=== PATIENT | male | born 1955 | race Caucasian/White ===

== ENCOUNTER 2020-03-15 11:11 | Outpatient (CLI) | payer MEDICARE, SELFPAY ==
--- NOTE | ~2020-03-15 | XR_ITS ---
EXAMINATION: XR abdomen/kub 1V DATE: 03/15/2020 11:39 INDICATION: Abdominal pain. Constipation. TECHNIQUE: A supine view of the abdomen on 2 radiographs was obtained. COMPARISON: CT abdomen 03/07/2007 FINDINGS: There are no dilated loops of bowel. There is a moderate volume of stool in the colon. Ther e are changes of posterior fusion procedure in lumbar spine. IMPRESSION: 1. Nonobstructive bowel gas pattern. Reviewed, dictated and finalized at location A.
[2020-03-15 11:24] LABS: Basophils Absolute Auto 0.03 K/mm3 (0.00-0.10); Basophils Percent Auto 0.4 % (0.0-1.0); Eosinophils Absolute Auto 0.08 K/mm3 (0.02-0.50); Eosinophils Percent Auto 1.1 % (1.0-6.0); Hematocrit 41.2 % (40.0-54.0); Hemoglobin 14.1 g/dL (14.0-18.0); Immature Granulocyte Absolute 0.03 K/mm3 (0.00-0.00); Immature Granulocyte Percent A 0.4 % (0.0-0.0); Lymphocytes Absolute Auto 2.21 K/mm3 (1.10-4.50); Lymphocytes Percent Auto 30.6 % (18.0-42.0); Mean Corpuscular HGB Conc 34.2 g/dL (32.0-36.0); Mean Corpuscular Volume 96.5 fL (78.0-102.0); Monocytes Absolute Auto 0.53 K/mm3 (0.10-0.90); Monocytes Percent Auto 7.3 % (2.0-11.0); Neutrophils Absolute Auto 4.4 K/mm3 (1.7-7.2); Neutrophils Percent Auto 60.2 % (50.0-70.0); Platelet Count Result 142 K/mm3 (150-420); Red Blood Count 4.27 M/mm3 (4.70-6.10); White Blood Count 7.2 K/mm3 (4.8-10.8)
[2020-03-15 11:33] LABS: Add Urine Microscopic? YES; Appearance Urine Clear (Clear); Bilirubin Urine Negative (Negative); Blood Urine 2+ (Negative); Color Urine Yellow (Yellow); Glucose Urine UA Negative (Negative); Ketones Urine Negative (Negative); Leukocyte Esterase Ur Negative LEU/UL (Negative); Nitrate Urine Negative (Negative); Protein Urine Negative (Negative); Urobilinogen Urine 0.2 mg/dL (0.2-1.0); pH Urine 5.5 (5.0-8.0)
[2020-03-15 11:58] LABS: Bacteria Urine Trace /hpf; Squamous Epithelial Cell Urine Rare /hpf (Few); WBC Urine None seen /hpf (0-3)
[2020-03-15 12:29] LABS: Alanine Aminotransferase 15 U/L (16-63); Albumin Level 3.7 g/dL (3.4-5.0); Alkaline Phosphatase 60 U/L (46-116); Amylase 31 U/L (25-115); Anion Gap 10.1 mmol/L (7-16); Aspartate Amino Transferase 17 U/L (15-37); Bilirubin,Total 0.3 mg/dL (0.00-1.00); Blood Urea Nitrogen 17 mg/dL (7-18); Calcium 8.8 mg/dL (8.5-10.1); Carbon Dioxide 31 mmol/L (21-32); Chloride 101 mmol/L (98-108); Estimated Glomerular Filt Rate > 60; Glucose 99 mg/dL (70-99); Lipase 49 U/L (73-393); Osmolality Calculated 287 mOsm/kg (285-295); Potassium 4.1 mmol/L (3.5-5.1); Prostate Specific Antigen 0.2 ng/mL (< OR = 4.0); Sodium 138 mmol/L (136-145); Total Protein 7.2 g/dL (6.4-8.2)
== END 2020-03-15 11:12 | disposition home or self-care (01) ==
PROVIDERS: PCP Internal Medicine; Visit Provider Internal Medicine
DX: R10.9 Unspecified abdominal pain (principal); K59.00 Constipation, unspecified; Z12.5 Encounter for screening for malignant neoplasm of prostate
CPT/HCPCS: 36415; 74018; 80053; 81001; 82150; 83690; 84153; 85025; G0103

== ENCOUNTER 2020-04-29 16:12 | Emergency (ER) | payer MEDICARE, SELFPAY ==
--- NOTE | ~2020-04-29 | XR_ITS ---
EXAMINATION: XR chest 2V 04/29/2020 17:29 INDICATION: Fever and reveals. PROCEDURE: PA and lateral views of the chest COMPARISON: 09/08/2016 FINDINGS: The lungs are clear. The cardiomediastinal silhouette is within normal limits. There are no pleural effusions. There is no pneumothorax suspected. The lungs are hyperinflated which is cons istent with, but not diagnostic of chronic obstructive pulmonary disease. IMPRESSION: 1: NO ACUTE CARDIOPULMONARY DISEASE. Reviewed, dictated and finalized at location A.
--- NOTE | ~2020-04-29 | XR_ITS ---
XR abdomen/kub 1V 04/29/2020 17:29 Indication: Constipation. Fever. Procedure: KUB Comparison: 03/15/2020 Findings: Nonobstructive bowel gas pattern. Moderate colonic fecal loading. There are are surgical ch anges consistent with fusion at L3-4. There is lumbar spondylosis. Generalized osteopenia. No evidenc e for nephrolithiasis. Lung bases unremarkable. Impression: 1: Nonobstructive bowel gas pattern. Moderate colonic fecal loading. Reviewed, dictated and finalized at location A. Impression: 1: Nonobstructive bowel gas pattern. Moderate colonic fecal loading.
[2020-04-29 16:15] VITALS: BP 126/81; PULSE 77; RESP 14; TEMP 37.3; O2SAT 93
--- NOTE | 2020-04-29 16:39 | PC.NURSE ---
RN ATTEMPTED TO COLLECT URINE SAMPLE, PATIENT STATES HE JUST VOIDED NUTRITION PARTNER AND CANNOT URINATE AT THIS TIME. RN ATTEMPTED TO PLACE PATIENT IN A HOSPITAL GOWN, IN WHICH PATIENT REFUSED.
--- NOTE | 2020-04-29 16:40 | ED.ABDPAIN ---
HPI - Abdominal Pain General Chief Complaint: Abdominal Pain Stated Complaint: stomach pain Time Seen by Provider: 04/29/20 16:40 Source: patient Mode of arrival: ambulatory Limitations: no limitations Related Data Home Medications Medication Instructions Recorded Confirmed fluoxetine 40 mg PO DAILY 04/29/20 04/29/20 gabapentin 100 mg PO TID 04/29/20 04/29/20 morphine 60 mg PO Q4-5H 04/29/20 04/29/20 naloxegol [Movantik] 25 mg PO DAILY 04/29/20 04/29/20 trazodone 100 mg PO HS 04/29/20 04/29/20 Allergies Allergy/AdvReac Type Severity Reaction Status Date / Time NSAIDS (Non-Steroidal Allergy Severe HIVES/RASH Verified 01/18/12 15:37 Anti-Inflamma Course Vital Signs Vital signs: Vital Signs Temperature 37.3 C 04/29/20 16:15 Pulse Rate 77 04/29/20 16:15 Respiratory Rate 14 04/29/20 16:15 Blood Pressure 126/81 04/29/20 16:15 Pulse Oximetry 93 04/29/20 16:15 Temperature 37.3 C 04/29/20 16:15 Pulse Rate 77 04/29/20 16:15 Respiratory Rate 14 04/29/20 16:15 Blood Pressure 126/81 04/29/20 16:15 Pulse Oximetry 93 04/29/20 16:15 Discharge Plan Discharge Prescriptions: No Action fluoxetine 40 mg capsule 40 mg PO DAILY RF: 0 trazodone 100 mg tablet 100 mg PO HS RF: 0 morphine 30 mg tablet 60 mg PO Q4-5H RF: 0 gabapentin 100 mg capsule 100 mg PO TID RF: 0 Movantik 25 mg tablet 25 mg PO DAILY RF: 0
[2020-04-29 17:20] LABS: Basophils Absolute Auto 0.01 K/mm3 (0.00-0.10); Basophils Percent Auto 0.1 % (0.0-1.0); Hematocrit 38.6 % (40.0-54.0); Hemoglobin 13.2 g/dL (14.0-18.0); Immature Granulocyte Percent A 0.7 % (0.0-0.0); Lymphocytes Absolute Auto 1.28 K/mm3 (1.10-4.50); Lymphocytes Percent Auto 9.3 % (18.0-42.0); Mean Corpuscular HGB Conc 34.2 g/dL (32.0-36.0); Mean Corpuscular Hemoglobin 32.4 pg (27.0-31.0); Mean Corpuscular Volume 94.8 fL (78.0-102.0); Mean Platelet Volume 10.7 fl (8.7-11.0); Monocytes Absolute Auto 0.68 K/mm3 (0.10-0.90); Monocytes Percent Auto 4.9 % (2.0-11.0); Neutrophils Absolute Auto 11.7 K/mm3 (1.7-7.2); Platelet Count Result 136 K/mm3 (150-420); Red Blood Count 4.07 M/mm3 (4.70-6.10); Red Cell Distribution Width 12.3 % (11.6-14.4); White Blood Count 13.8 K/mm3 (4.8-10.8)
--- NOTE | 2020-04-29 17:31 | ED.FEVER ---
HPI - Fever General Chief Complaint: Abdominal Pain Stated Complaint: stomach pain Time Seen by Provider: 04/29/20 16:40 Source: patient Mode of arrival: ambulatory Limitations: no limitations History of Present Illness HPI Narrative: 64-year-old man with a history of chronic back pain comes into emergency department complaining of fever that started last night. Patient states that he has been having abdominal pain treated by his doctor for last month or 2. He has had a nonproductive cough for the last week. He has had no vomiting, diarrhea, increase or decrease in his abdominal pain, rash, Rhinorrhea sore throat, or sick exposures. He denies hematuria and dysuria. He had a decreased appetite starting yesterday. MD elicited complaint: fever Onset (ago): day(s) (1) Exacerbating factors: nothing Relieving factors: nothing Associated symptoms: cough Related Data Home Medications Medication Instructions Recorded Confirmed fluoxetine 40 mg PO DAILY 04/29/20 04/29/20 gabapentin 100 mg PO TID 04/29/20 04/29/20 morphine 60 mg PO Q4-5H 04/29/20 04/29/20 naloxegol [Movantik] 25 mg PO DAILY 04/29/20 04/29/20 trazodone 100 mg PO HS 04/29/20 04/29/20 Allergies Allergy/AdvReac Type Severity Reaction Status Date / Time NSAIDS (Non-Steroidal Allergy Severe HIVES/RASH Verified 01/18/12 15:37 Anti-Inflamma Review of Systems Constitutional: Constitutional: Reports as per HPI, Denies chills, Denies fatigue and Reports fever(s) Eyes: Eyes: Denies change in vision and Denies photophobia ENT: Denies dysphagia, Denies nasal congestion and Denies sore throat Cardiovascular: Cardiovascular: Denies chest pain and Denies radiating jaw, neck or arm pain Respiratory: Respiratory: Reports cough, Denies dyspnea and Denies wheezing Gastrointestinal: Gastrointestinal: Reports as per HPI, Reports abdominal pain, Denies constipation, Denies diarrhea, Denies nausea and Denies vomiting Comments: Poor appetite starting yesterday. Genitourinary: Genitourinary: Denies hematuria, Denies dysuria and Denies urinary frequency Musculoskeletal: Musculoskeletal: Reports as per HPI, Reports back pain ( Chronic), Denies arthralgias and Denies joint swelling Integumentary/Breasts: Skin/Breast: Denies pruritus, Denies erythema and Denies rash Neurologic: Denies vertigo, Denies dizziness and Denies syncope Hematologic/Lymphatic: Hematologic/Lymphatic: Denies easy bleeding and Denies easy bruising Allergic/Immunologic: Allergic/Immunologic: Denies lip swelling, Denies throat swelling and Denies tongue swelling [facility] Social History Social History (Updated 04/29/20 @ 17:36 by Can Loyd MD) Smoking status: Current every day smoker Alcohol intake: never Substance use: never Living arrangements: with family Exam Const: General: no acute distress and alert Nutritional Appearance: thin Orientation/consciousness: patient oriented x3 Limitations: no limitations HENMT: Head: normal to inspection Ears: external ears normal, TM's normal bilaterally and EAC's normal Face and sinus: normal facial exam Mouth: Yes moist mucous membranes Throat: posterior oropharynx normal Eyes: Conjunctivae: conjunctivae normal Pupils: Equal, round and reactive pupils present EOM: EOMs intact bilaterally Neck: Neck: normal visual inspection and no lymphadenopathy Chest: Chest palpation & inspection: normal inspection of the chest and abnormal inspection of the chest Resp: Effort & Inspection: normal respiratory effort and not labored Auscultation: clear to auscultation bilaterally, no rales, no rhonchi and no wheezes Cardio: Rate: regular rate Rhythm: regular rhythm Heart sounds: no murmurs GI: Inspection: non-distended GI Palp: Yes Soft to palpation, No Tenderness to palpation present (GI) and No Guarding due to palpation present (GI) Auscultation: normal bowel sounds Skin: General skin exam: normal color Rashes: no rashes Neuro: Gene
[2020-04-29 17:43] LABS: Lactic Acid Reflex 0.8 mmol/L (0.4-2.0)
[2020-04-29 17:48] LABS: INR 1.1; Influenza Control Valid (Valid); Partial Thromboplastin Time 38.2 SEC (22.3-31.6); Prothrombin Time 11.4 Seconds (9.64-11.0)
[2020-04-29 17:50] LABS: Alanine Aminotransferase 16 U/L (16-63); Albumin Level 3.6 g/dL (3.4-5.0); Alkaline Phosphatase 67 U/L (46-116); Anion Gap 9 mmol/L (8-16); Aspartate Amino Transferase 18 U/L (15-37); Bilirubin,Total 0.6 mg/dL (0.00-1.00); Blood Urea Nitrogen 20 mg/dL (7-18); CRP 3.5 mg/dL (0.0-0.9); Calcium 8.6 mg/dL (8.5-10.1); Carbon Dioxide 27 mmol/L (21-32); Chloride 100 mmol/L (98-108); Estimated CRCL calculation 55 ml/min; Estimated Glomerular Filt Rate > 60; Glucose 100 mg/dL (70-99); Lipase 32 U/L (73-393); Osmolality Calculated 284 mOsm/kg (285-295); Sodium 136 mmol/L (136-145); Total Protein 7.5 g/dL (6.4-8.2)
[2020-04-29 18:39] LABS: Add Urine Microscopic? YES; Appearance Urine Clear (Clear); Bilirubin Urine Negative (Negative); Blood Urine 2+ (Negative); Color Urine Yellow (Yellow); Glucose Urine UA Negative (Negative); Ketones Urine Negative (Negative); Leukocyte Esterase Ur Negative LEU/UL (Negative); Nitrate Urine Negative (Negative); Protein Urine Negative (Negative); pH Urine 5.5 (5.0-8.0)
[2020-04-29 18:48] LABS: Bacteria Urine Trace /hpf; Mucus Urine Rare /lpf; Squamous Epithelial Cell Urine Rare /hpf (Few); WBC Urine 0-3 /hpf (0-3)
[2020-04-29 19:23] VITALS: BP 111/72; PULSE 69; RESP 15; TEMP 36.6; O2SAT 98
[2020-05-02 13:06] LABS: SARS-CoV-2 RNA PCR Negative
== END 2020-04-29 19:15 | disposition home or self-care (01) ==
PROVIDERS: Emergency Provider Emergency Medicine; PCP Internal Medicine
DX: R50.9 Fever, unspecified (principal); K59.03 Drug induced constipation; Z20.828 Contact with and (suspected) exposure to other viral communicable diseases
CPT/HCPCS: 71046; 74018; 80053; 81001; 83605; 83690; 85025; 85610; 85730; 86140; 87040; 87086; 87635; 87804; 99283; C9803; U0003

== ENCOUNTER 2021-05-14 15:59 | Emergency (ER) | payer MEDICARE, SELFPAY ==
[2021-05-14 16:08] VITALS: BP 157/89; PULSE 72; RESP 16; TEMP 36.2; O2SAT 97
--- NOTE | 2021-05-14 16:09 | ED.UPPEXIN ---
HPI - Extremity Injury (Upper) General Chief Complaint: Extremity Injury, Upper Stated Complaint: pain/redness left elbow Time Seen by Provider: 05/14/21 16:09 Source: patient and RN notes reviewed Mode of arrival: ambulatory Limitations: no limitations History of Present Illness HPI narrative: 66-year-old male presents to the [facility] with complaints of elbow pain and swelling since , 3 days. Related Data Home Medications Medication Instructions Recorded Confirmed fluoxetine 40 mg PO DAILY 04/29/20 02/14/21 Allergies Allergy/AdvReac Type Severity Reaction Status Date / Time NSAIDS (Non-Steroidal AdvReac Mild Abdominal Verified 05/14/21 16:35 Anti-Inflamma Pain Review of Systems Review of Systems: All systems reviewed & are unremarkable except as noted in HPI and below Constitutional: Constitutional: Reports no additional constitutional complaints, Denies chills and Denies fever(s) Eyes: Eyes: Reports no additional eye complaints ENT: Reports system reviewed and no additional complaints, except as documented Cardiovascular: Cardiovascular: Reports no additional cardiovascular complaints Respiratory: Respiratory: Reports no additional respiratory complaints Gastrointestinal: Gastrointestinal: Reports no additional gastrointestinal complaints Musculoskeletal: Musculoskeletal: Reports as per HPI and Reports joint swelling (left elbow) Integumentary/Breasts: Skin/Breast: Reports as per HPI and Reports erythema Neurologic: Reports system reviewed and no additional complaints, except as documented Psychiatric: Psychiatric: Reports no additional psychiatric complaints Allergic/Immunologic: Allergic/Immunologic: Reports no additional allergic/immunologic complaints [facility] Past Medical History Medical History (Updated 05/14/21 @ 17:33 by Jeane Brock) Anxiety and depression Chronic back pain Surgical History Surgical History Previous back surgery Social History Social History Smoking status: Current every day smoker Alcohol intake: never Substance use: never Comments At the time of my signature, I reviewed and agree with the nursing past medical, surgical, social, and family history. There is no relevant family history pertinent to the patient complaint. Exam Const: General: healthy appearing, no acute distress and alert Nutritional Appearance: well nourished Orientation/consciousness: patient oriented x3 Limitations: no limitations HENMT: Head: normal to inspection Eyes: Pupils: Equal, round and reactive pupils present Neck: Neck: normal visual inspection, no lymphadenopathy and no meningeal signs Chest: Chest palpation & inspection: normal inspection of the chest Resp: Effort & Inspection: normal respiratory effort Cardio: Rate: regular rate Skin: General skin exam: normal color Neuro: General: patient oriented x3, moves all extremities, no meningeal signs and no focal motor deficits Speech: normal speech Gait exam (Neuro): Normal gait present Extrem: Left upper extremity: elbow/forearm tenderness of the olecranon and swelling of the olecranon; no ecchymosis Right lower extremity: normal to inspection Left lower extremity: normal to inspection Psych: Appearance: grossly normal and well kempt Mental Status: mental status grossly normal Affect: normal affect Attitude: cooperative Thought content: Yes Normal thought content present Course Course Emergency Course: Discharge instructions reviewed with patient, as well as provided in writing per nursing staff. The instructions also include specific and strict return/GO TO THE ER as well as f/u information. All questions have been answered, and the patient deny any further questions with discharge and discharge plan. Vital Signs Vital signs: Vital Signs Temperature 97.2 F L 05/14/21 16:08 Pulse Rate 72
[2021-05-14 16:34] VITALS: BP 157/89; PULSE 72; RESP 16; TEMP 36.2; O2SAT 97
== END 2021-05-14 16:26 | disposition home or self-care (01) ==
PROVIDERS: Emergency Provider Nurse Practitioner
DX: M70.22 Olecranon bursitis, left elbow (principal); F17.200 Nicotine dependence, unspecified, uncomplicated
CPT/HCPCS: 99213; G0463

== ENCOUNTER 2021-09-14 17:06 | Emergency (ER) | payer MEDICARE, SELFPAY ==
--- NOTE | ~2021-09-14 | XR_ITS ---
XR lumbar spine 2-3V DATE: 09/14/2021 18:04 INDICATION: Fall 2 days ago. Back pain. TECHNIQUE: AP, lateral, coned lateral lumbosacral views COMPARISON: 01/18/2016 CT lumbar spine FINDINGS: Again noted is posterior surgical spinal fusion at L3-4 with pedicle screws and rods. Howev er, there is interval moderately prominent anterior wedge compression fracture deformity of L3 since 01/27/2015. There is reversal of lumbar lordosis, with gibbus deformity at L2-3. Diffuse osteopenia. There is multilevel degenerative disc disease, moderately severe at L2-3, L3-4 and L4-5 with associat ed grade 1 posterior listhesis at L4-5. Degenerative disc disease is most pronounced at L5-S1. The sacroiliac joints are intact. Prominent abdominal aortic calcification without apparent aneurysm. IMPRESSION: Interval L3 compression fracture deformities since 01/27/2015 Diffuse osteopenia Status post posterior surgical spinal fusion at L3-4 Multilevel degenerative disc disease, associated grade 1 posterior listhesis at L4-5 Reviewed, dictated and finalized at location J. UAL RECRUITER
--- NOTE | ~2021-09-14 | XR_ITS ---
XR thoracic spine 3V DATE: 09/14/2021 18:04 INDICATION: Fall 2 days ago. Back pain. TECHNIQUE: AP, lateral, swimmer views COMPARISON: 09/16/2018 MR cervical spine 03/07/2007 CT cervical spine and thorax (no coronal or sagittal reconstructions of the thoracic spine) FINDINGS: Pedicle screws and rods are noted in the lumbar spine. Diffuse osteopenia. There is mild anterior wedge compression fracture deformity of undetermined age at an upper thoracic vertebral body. This examination is somewhat limited. Consider CT or MR evaluation of the thoracic sp ine as clinically appropriate IMPRESSION: Limited examination Reviewed, dictated and finalized at location J. E ATTENDANT IMPRESSION: Limited examination
[2021-09-14 17:15] VITALS: BP 124/69; PULSE 87; RESP 18; TEMP 35.9; O2SAT 97
[2021-09-14] MEDS: ORPHENADRINE CITRATE 100 MG TABLET.ER PO (17:48)
[2021-09-14] MEDS: KETOROLAC (*BKC) 60 MG/2 ML VIAL IM (17:48)
--- NOTE | 2021-09-14 17:58 | PC.NURSE ---
pt states unable to lay flat for xrays as needed. erp notified.
--- NOTE | 2021-09-14 18:48 | ED.BACK ---
HPI - Back Pain/Injury General Chief Complaint: Back Pain/Injury Stated Complaint: back pain Source: patient History of Present Illness HPI Narrative: this is 66-year-old gentleman with a history of severe kyphosis in the midthoracic and lumbar spine that sustained a fall a couple of days ago and has had some pain medication but is having pain that he rates about a 9/10 there is no numbness or tingling no saddle paresthesias has good range of motion is hips and pelvis bilaterally with no bowel or bladder dysfunction no fever chills. MD elicited complaint: back injury and fall Pertinent past history: prior back pain and recent trauma Onset (ago): day(s) Timing: constant Severity: moderate Pain scale (0-10): 9 Similar Symptoms Previously: Yes Quality: aching Related Data Home Medications Medication Instructions Recorded Confirmed diphenhydramine-acetaminophen 25 1 cap PO HS 08/10/21 09/14/21 mg-500 mg capsule duloxetine 30 mg capsule,delayed 30 mg PO DAILY 08/10/21 09/14/21 release famotidine 40 mg tablet 40 mg PO DAILY 08/10/21 09/14/21 fluoxetine 20 mg capsule 20 mg PO TID cap 08/10/21 09/14/21 Allergies Allergy/AdvReac Type Severity Reaction Status Date / Time NSAIDS (Non-Steroidal AdvReac Mild Abdominal Verified 06/28/21 14:35 Anti-Inflamma Pain ibuprofen AdvReac Sick Verified 08/10/21 13:00 feeling prednisone AdvReac Sick Verified 08/10/21 13:00 feeling Review of Systems Review of Systems: All systems reviewed & are unremarkable except as noted in HPI and below PMFSH Past Medical History Medical History Anxiety and depression Arthritis Cancer Chronic back pain Headache Hepatitis Hypertension Osteoporosis Restless leg syndrome Surgical History Surgical History Previous back surgery Family History Family History Mother Cancer Diabetes mellitus Sibling Cancer Social History Social History Smoking packs per day: 0.25 Smoking cigarettes per day: 5.0 Smoking status: Current every day smoker Alcohol intake: never Substance use: never Exam Const: General: no acute distress and alert Orientation/consciousness: patient oriented x3 HENMT: Head: normal to inspection Eyes: Pupils: Equal, round and reactive pupils present Neck: Neck: normal visual inspection Chest: Chest palpation & inspection: normal inspection of the chest Resp: Effort & Inspection: normal respiratory effort Auscultation: clear to auscultation bilaterally Cardio: Rate: regular rate Rhythm: regular rhythm GI: GI Palp: Yes Soft to palpation Percussion: Yes normal to percussion : Testes: Testes normal Urinary Catheter: Urinary Catheter: patent and draining Back/Spine/Pelvis: Back: no CVA tenderness Skin: General skin exam: normal color Rashes: no rashes Neuro: General: patient oriented x3, moves all extremities and no meningeal signs Extrem: General: normal to inspection and no pedal edema Other: Lower thoracic spinal pain and discomfort with palpation and movement Psych: Mental Status: mental status grossly normal Affect: normal affect Course Course Emergency Course: patient unable to lie flat x-ray of the thoracic and lumbar spine were performed which showed an age-indeterminate wedge compression fracture in the thoracic spine, patient received Toradol which reduces pain level from 9 down to a 7, offer the patient 4mg IM morphine prior to discharge and will send pain medication to his local pharmacy. Vital Signs Vital signs: Vital Signs Temperature 35.9 C L 09/14/21 17:15 Pulse Rate 87 09/14/21 17:15 Respiratory Rate 18 09/14/21 17:15 Blood Pressure 124/69 09/14/21 17:15 Pulse Oximetry 97 09/14/21 17:15 Temperature 35.9 C
[2021-09-14 19:08] VITALS: BP 146/74; PULSE 74; RESP 20; TEMP 36.2; O2SAT 94
[2021-09-14] MEDS: MORPHINE SULFATE (*CRX) 4 MG/ML INJ IM (19:11)
--- NOTE | 2021-09-14 19:17 | PC.NURSE ---
pt declined to stay for 1/2 hour observation period after injection
== END 2021-09-14 19:18 | disposition home or self-care (01) ==
PROVIDERS: Emergency Provider Emergency Medicine; PCP Internal Medicine
DX: M48.56XA Collapsed vertebra, not elsewhere classified, lumbar region, initial encounter for fracture (principal); W19.XXXA Unspecified fall, initial encounter; F17.200 Nicotine dependence, unspecified, uncomplicated; I10 Essential (primary) hypertension; M81.0 Age-related osteoporosis without current pathological fracture
CPT/HCPCS: 72072; 72100; 96372; 99283; 99284; A9270; J1885; J2270

== ENCOUNTER 2021-10-16 07:37 | Outpatient (CLI) | payer MEDICARE, SELFPAY ==
--- NOTE | ~2021-10-16 | NM_ITS ---
EXAMINATION: NM bone scan whole body DATE: 10/16/2021 12:00 INDICATION: Osteoporosis. Multiple compression fractures. TECHNIQUE: 26.4 mCi Tc-99m HDP was administered intravenously. Delayed whole-body scintigrams were o btained. COMPARISON: Thoracic and lumbar spine radiographs dated 09/14/2021 FINDINGS: Prominent increased bone uptake at a compression fracture at L3. Photopenic defects are seen at both sides of L3 and L4 corresponding to bilateral vertical katelin and pedicle screw fixation. No other suspi cious bone lesions identified. IMPRESSION: 1. Increased uptake associated with a likely acute to subacute L3 compression fracture with chronic p osterior spinal fusion at L3-L4. Reviewed, dictated and finalized at location A. OUT MAN IMPRESSION: 1. Increased uptake associated with a likely acute to subacute L3 compression f racture with chronic posterior spinal fusion at L3-L4.
== END 2021-10-16 07:38 | disposition home or self-care (01) ==
LOC: CHSIMG 07:39
PROVIDERS: PCP Internal Medicine; Visit Provider Nurse Practitioner Adult Health
DX: M80.80XA Other osteoporosis with current pathological fracture, unspecified site, initial encounter for fracture (principal)
CPT/HCPCS: 78306; A9561

== ENCOUNTER 2021-10-20 19:56 | Emergency (ER) | payer MEDICARE, SELFPAY ==
[2021-10-20 20:05] VITALS: BP 152/110; PULSE 96; RESP 18; TEMP 36.6; O2SAT 98
--- NOTE | 2021-10-20 20:28 | ED.GENADULT ---
HPI - General Adult General Chief complaint: Back Pain/Injury Stated complaint: back pain severe compound fracture Source: patient and family Mode of arrival: ambulatory History of Present Illness HPI narrative: Ray is a 66M with a PMH of anxiety/depression, arthritis, previous bladder cancer, hepatitis, HTN, osteoporosis, tobacco abuse and chronic back pain after failed back surgery. It has been worse than usual for the last few days and he has a recent compression fracture of L3. It is midline lumbar pain that radiates to the right leg. He has not taken anything for the pain. He denies any bowel or bladder dysfunction. No numbness or paralysis and no recent trauma. Related Data Home Medications Medication Instructions Recorded Confirmed clonidine HCl 0.3 mg PO TID 10/20/21 10/20/21 diclofenac sodium 100 mg PO DAILY PRN 10/20/21 10/20/21 duloxetine 30 mg PO DAILY 10/20/21 10/20/21 ergocalciferol (vitamin D2) 50,000 unit PO WEEKLY 10/20/21 10/20/21 famotidine 40 mg PO DAILY 10/20/21 10/20/21 fluoxetine 60 mg PO DAILY 10/20/21 10/20/21 icosapent ethyl [Vascepa] 1 g PO DAILY 10/20/21 10/20/21 methadone 5 mg PO DAILY 10/20/21 10/20/21 Allergies Allergy/AdvReac Type Severity Reaction Status Date / Time NSAIDS (Non-Steroidal AdvReac Mild Abdominal Verified 10/04/21 08:56 Anti-Inflamma Pain ibuprofen AdvReac Sick Verified 10/04/21 08:56 feeling prednisone AdvReac Sick Verified 10/04/21 08:56 feeling Review of Systems Constitutional: Constitutional: Reports no additional constitutional complaints Eyes: Eyes: Reports no additional eye complaints ENT: Reports system reviewed and no additional complaints, except as documented Cardiovascular: Cardiovascular: Reports no additional cardiovascular complaints Respiratory: Respiratory: Reports no additional respiratory complaints Gastrointestinal: Gastrointestinal: Reports no additional gastrointestinal complaints Genitourinary: Genitourinary: Reports no additional male genitourinary complaints Musculoskeletal: Musculoskeletal: Reports no additional musculoskeletal complaints Integumentary/Breasts: Skin/Breast: Reports system reviewed and no additional complaints, except as docu Neurologic: Reports system reviewed and no additional complaints, except as documented Psychiatric: Psychiatric: Reports no additional psychiatric complaints Endocrine: Endocrine: Reports no additional endocrine complaints Hematologic/Lymphatic: Hematologic/Lymphatic: Reports no additional hematologic/lymphatic complaints Allergic/Immunologic: Allergic/Immunologic: Reports no additional allergic/immunologic complaints [facility] Past Medical History Medical History Anxiety and depression Arthritis Cancer Chronic back pain Headache Hepatitis Hypertension Osteoporosis Restless leg syndrome Surgical History Surgical History Previous back surgery Family History Family History Mother Cancer Diabetes mellitus Sibling Cancer Social History Social History Smoking packs per day: 0.25 Smoking cigarettes per day: 5.0 Years smoked: 50 Smoking pack-years: 12.50 Smoking status: Current every day smoker Alcohol intake: never Substance use: never Substance use type: does not use Exam Const: General: no acute distress and alert Orientation/consciousness: patient oriented x3 Limitations: No altered mental status HENMT: Head: normal to inspection Other: atrauamtic Eyes: Conjunctivae: conjunctivae normal Pupils: Equal, round and reactive pupils present Neck: Neck: normal visual inspection Chest: Chest palpation & inspection: normal inspection of the chest Resp: Effort & Inspection: normal respiratory effort, not labored and not ta
[2021-10-20] MEDS: KETOROLAC 30 MG/ML VIAL (*BKC) IM (20:38)
[2021-10-20] MEDS: oxyCODONE HCL (*CRX) 10 MG TAB SR 12HR PO (20:40)
[2021-10-20 20:55] VITALS: BP 155/98; PULSE 88; RESP 20; TEMP 36.6; O2SAT 99
== END 2021-10-20 20:57 | disposition home or self-care (01) ==
PROVIDERS: Emergency Provider Family Medicine; PCP Internal Medicine
DX: M54.9 Dorsalgia, unspecified (principal); I10 Essential (primary) hypertension; M81.0 Age-related osteoporosis without current pathological fracture; G25.81 Restless legs syndrome; F17.200 Nicotine dependence, unspecified, uncomplicated
CPT/HCPCS: 96372; 99283; A9270; J1885

== ENCOUNTER 2021-10-25 10:01 | Outpatient (CLI) | payer MEDICARE, SELFPAY ==
--- NOTE | ~2021-10-25 | CT_ITS ---
EXAMINATION: CT lumbar spine wo con DATE: 10/25/2021 10:24 INDICATION: Other osteoporosis with current pathologic fracture. TECHNIQUE: Computed tomography (CT) of the lumbar spine was performed without intravenous contrast. A utomated exposure control and iterative reconstruction technique were employed. The dose-length produ ct was 520.77 mGy-cm. COMPARISON: CT lumbar spine 01/27/2015, radiographs 09/14/2021 FINDINGS: There is a moderate-sized sliding hiatal hernia. There is a 1.9 cm cyst in the spleen. Ther e is 9 degrees levocurvature of lumbar spine. There are changes of posterior fusion procedure at L3-L 4 with pedicle screws. There is a chronic burst fracture of L3 with 3/5 loss of height and focal kyph osis. There is 6 mm retrolisthesis of L4 on L5 and 5 mm retrolisthesis of L5 on S1. There is mildly d ecreased disc height at L2-L3 and L3-L4 and severely decreased disc height at L5-S1 with endplate rem odeling. The following disc levels are specifically discussed: L1-L2: The disc does not extend beyond the endplate margin. There is moderate bilateral facet joint o steoarthritis. There is mild bilateral neural foraminal stenosis. There is no central canal stenosis. L2-L3: The disc does not extend beyond the endplate margin. There is ankylosis of the facet joints wi th mild hypertrophy. There is no neural foraminal stenosis. There is no central canal stenosis. L3-L4: The disc does not extend beyond the endplate margin. There is no facet joint hypertrophy. Ther e is mild bilateral neural foraminal stenosis. There is no central canal stenosis. There is posterior decompression. L4-L5: The disc is bulging. There is mild right and moderate left facet joint osteoarthritis. There i s moderate bilateral neural foraminal stenosis. There is mild central canal stenosis. L5-S1: The disc is bulging. There is severe bilateral facet joint osteoarthritis. There is moderate b ilateral neural foraminal stenosis. There is mild central canal stenosis. IMPRESSION: 1. Severe lumbar spondylosis. 2. Posterior fusion procedure at L3-L4. 3. Moderate-sized sliding hiatal hernia. Reviewed, dictated and finalized at location A. CH LIBRARY CLERK
== END 2021-10-25 10:02 | disposition home or self-care (01) ==
LOC: CHSIMG 10:03
PROVIDERS: PCP Internal Medicine; Visit Provider Nurse Practitioner Adult Health
DX: M80.80XA Other osteoporosis with current pathological fracture, unspecified site, initial encounter for fracture (principal)
CPT/HCPCS: 72131

== ENCOUNTER 2022-02-05 14:47 | Outpatient (CLI) | payer MEDICARE, SELFPAY ==
--- NOTE | ~2022-02-05 | XR_ITS ---
XR lumbar spine 2-3V DATE: 02/05/2022 15:30 INDICATION: Radiculopathy TECHNIQUE: Standing AP and lateral and coned lateral lumbosacral views COMPARISON: 10/25/2021 CT lumbar spine FINDINGS: There is severe diffuse osteopenia. There is posterior surgical fusion by means of pedicle screws and rods at L3-4. There is prominent loss of height and anterior wedging at L3 with associated gibbus deformity at L2-3 , stable since October 25, 2021. There is moderately severe degenerative disc disease at L2-3, L3-4, L4-5 and L5-S1. There is mild retrolisthesis at L4-5. The sacroiliac joints appear normal. There is calcification of the abdominal aorta without apparent aneurysm. IMPRESSION: Chronic L3 fracture Status post posterior spinal fusion at L3-4 Multilevel degenerative disc disease Severe osteopenia Little interval change since 10/25/2021 Reviewed, dictated and finalized at location A.
--- NOTE | ~2022-02-05 | XR_ITS ---
XR cervical spine 4-5V DATE: 02/05/2022 15:30 INDICATION: Cervical radiculopathy TECHNIQUE: AP, open-mouth, lateral and swimmer views COMPARISON: 09/16/2018 MR cervical spine FINDINGS: There is diffuse osteopenia. There is approximately 19 degrees levoscoliosis of the cervical and upper thoracic spine. C1 and C2 are normally aligned and the odontoid process is intact. No fracture or dislocation or locked facet or prevertebral soft tissue swelling is evident. There is moderately prominent degenerative disc disease and uncovertebral joint spurring at C5-6 and C6-7. IMPRESSION: Osteopenia Levoscoliosis of cervical and upper thoracic spine Moderately prominent degenerative disc disease and uncovertebral joint spurring at C5-6 and C6-7 Reviewed, dictated and finalized at location A.
== END 2022-02-05 14:48 | disposition home or self-care (01) ==
PROVIDERS: Visit Provider Pain Medicine Interventional Pain Medicine
DX: M47.26 Other spondylosis with radiculopathy, lumbar region (principal); M47.24 Other spondylosis with radiculopathy, thoracic region; M47.812 Spondylosis without myelopathy or radiculopathy, cervical region; M85.88 Other specified disorders of bone density and structure, other site; M50.323 Other cervical disc degeneration at C6-C7 level
CPT/HCPCS: 72050; 72100

== ENCOUNTER 2022-07-20 15:15 | Inpatient (IN) | payer MEDICARE, SELFPAY ==
[2022-07-20] VITALS (24 sets, daily range): BP systolic 102–160; BP diastolic 54–133; PULSE 90–118; RESP 18–36; TEMP 37–37.8; O2SAT 88–100; BMI 24.3
--- NOTE | ~2022-07-20 | CT_ITS ---
EXAMINATION: CT abdomen pelvis wo con DATE: 07/25/2022 06:58 INDICATION: Anemia. TECHNIQUE: Computed tomography (CT) of the abdomen and pelvis was performed without intravenous contr ast. Automated exposure control and iterative reconstruction technique were employed. The dose-length product was 1028.39 mGy-cm. COMPARISON: CT abdomen and pelvis 03/07/2007, chest CT 07/21/2022, lumbar spine CT 10/25/21 FINDINGS: Motion artifact is noted. The lungs demonstrate septal thickening and groundglass opacities with architectural distortion. There are patchy airspace opacities in lingula. There are peripheral airspace opacities in right lower lobe with cavitation. There is a small loculated right pleural effu jalyn. There is a small left pleural effusion. The heart size is normal. There is a small pericardial effusion. There is a small sliding hiatal hernia. There is mild splenomegaly. There is a 2.2 cm cyst in the spleen. The liver, gallbladder, pancreas, adrenal glands, and kidneys are normal. There is no urolithiasis. There are no dilated loops of bowel. There are no pathologically enlarged lymph nodes. There is trace pelvic ascites. There are changes of posterior fusion procedure at L3-L4. There is a c hronic compression fracture of L3 with focal kyphosis. There is severe lower lumbar spondylosis. IMPRESSION: 1. Diffuse lung disease, consistent with pneumonia including right lower lobe cavitation and superimp osed pulmonary edema. 2. Small loculated right pleural effusion. Small left pleural effusion. 3. Small pericardial effusion. 4. Small sliding hiatal hernia. 5. Mild splenomegaly. Reviewed, dictated and finalized at location A. ESS CASHIER IMPRESSION: 1. Diffuse lung disease, consistent with pneumonia including right lower lobe c avitation and superimposed pulmonary edema. 2. Small loculated right pleural effusion. Small left pleural effusion. 3. Small pericardial effusion. 4. Small sliding hiatal hernia. 5. Mild splenomegaly.
--- NOTE | ~2022-07-20 | CT_ITS ---
EXAMINATION: CTA chest PE protocol DATE: 07/21/2022 09:25 INDICATION: elevated dimer. COUGH, SHORTNESS OF BREATH TECHNIQUE: Computed tomography angiography (CTA) of the chest was performed with 100 mL Omnipaque-350 intravenous contrast timed to evaluate the pulmonary arteries. Coronal maximum intensity projection 3D-reconstructions were created by the technologist. The dose-length product (DLP) was 547.90 mGy-cm. Automated exposure control and iterative reconstruction technique were employed. COMPARISON: 07/20/2022. FINDINGS: Exam limited by nonstandard positioning and respiratory motion. Lung parenchyma and airways: Emphysematous and senescent change. Low-density consolidation in the dep endent right lower lobe with adjacent nodular opacities and gas collection that may reflect necrosis. Pleura: Moderate volume loculated right pleural effusion. Thoracic inlet, axillae and chest wall: Mild arch ectasia. Moderate arch calcification.. Thoracic aorta: Mild arch ectasia. Moderate arch calcification.. Mediastinum: Moderate hiatal hernia. Heart and pericardium: Normal. Coronary artery calcifications: Absent. Upper abdomen: No significant finding. Bones: No acute osseous finding, although evaluation for subtle rib fractures limited by respiratory motion. Pulmonary arteries: Study quality: Degraded by respiratory motion such that subsegmental and non-occl usive segmental emboli could be missed, particularly in the left lower lobe. No pulmonary emboli dete cted. IMPRESSION: Limited examination as detailed above. No occlusive segmental or central embolus detected. Right lowe r lobe pneumonia likely with a focus of necrosis and adjacent indeterminate nodular opacities. Modera te loculated right pleural effusion. Reviewed, dictated and finalized at location K. OLL PROCESSOR IMPRESSION: Limited examination as detailed above. No occlusive segmental or central embolu s detected. Right lower lobe pneumonia likely with a focus of necrosis and sukh cent indeterminate nodular opacities. Moderate loculated right pleural effusion .
--- NOTE | ~2022-07-20 | CT_ITS ---
EXAMINATION: CT diagnostic chest wo con DATE: 07/20/2022 16:25 INDICATION: Shortness of breath. Covid-positive. Smoker. TECHNIQUE: Computed tomography (CT) of the chest was performed without intravenous contrast. Automate d exposure control and iterative reconstruction technique were employed. Exam dose: 463.33 mGy-cm to kailey exam DLP. COMPARISON: 04/29/2022 view chest FINDINGS: Examination is limited due to nonstandard positioning, prominent respiratory motion, lack o f IV contrast material. There is prominent loculated pleural fluid collection along the lower right anterior chest wall, alessia g the anterior lower mediastinum and mild posterior lateral right pleural effusion as well. There is atelectasis/consolidation with air bronchograms in the posterior right lower lobe. At least 2 right lower lobe masses may be present, measuring 18 mm in the right infrahilar area (seri es 4 image 96), 13 mm in the posterior medial right lower lobe (series 4 image 101). Primary pulmonar y malignancy metastatic deposits, focal consolidation, granulomas, hamartomas are considerations in t he differential diagnosis. Limited evaluation is somewhat limited due to motion, particularly at the left lung, that there is no apparent pulmonary mass lesion or obvious consolidation of the left lung. Posterior aortic arch measures up to approximately 3.3 cm diameter consistent with mild thoracic aort ic aneurysm. There is prominent aortic and some great vessel calcification. Borderline heart size. No pericardial effusion is noted. No obvious hilar or mediastinal mass lesion or adenopathy. Moderate s ized hiatal hernia. Nonspecific approximately 1.8 cm hypoattenuating splenic lesion. Normal morphology of the adrenal glands. Osteopenia. No suspicious osteolytic or osteoblastic lesions are identified. IMPRESSION: Right lower lobe atelectasis/consolidation, moderately loculated right pleural effusions At least 2 possible right pulmonary masses are noted; differential diagnosis is given above Reviewed, dictated and finalized at Location A. Reviewed, dictated and finalized at location B. 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
--- NOTE | 2022-07-20 15:30 | ECG_ITS ---
Measurements Intervals [place] Rate: 116 P: 68 [place]: 149 QRS: 83 QRSD: 90 T: 104 QT: 431 QTc: 599 Interpretive Statements SINUS TACHYCARDIA ST-T WAVE ABNORMALITY LATERAL LEADS- CONSIDER ISCHEMIA BASELINE ARTIFACT- I, II, III, AVR, AVL, AVF, V1-V6 ABNORMAL ECG NO PREVIOUS ECG AVAILABLE FOR COMPARISON Electronically Signed On 07-20-2022 15:58:34 G[employer]F CLUB ASSEMBLER by Josse Hernandez D.O.
[2022-07-20 15:56] LABS: Hematocrit 36.5 % (37.0-46.0); Hemoglobin 12.1 g/dL (12.4-15.3); Mean Corpuscular HGB Conc 33.2 g/dL (32.0-36.0); Mean Corpuscular Hemoglobin 33.5 pg (27.0-31.0); Mean Corpuscular Volume 101.1 fL (78.0-102.0); Mean Platelet Volume 10.1 fl (8.7-11.0); Platelet Count Result 452 K/mm3 (150-420); Red Blood Count 3.61 M/mm3 (4.70-6.10); Red Cell Distribution Width 13.2 % (11.6-14.4)
[2022-07-20] MEDS: IPRATROPIUM 0.5 MG/ALBUTEROL SULFATE 2.5 MG AMPUL.NEB 3 ML INHALATION ×2 (15:56→18:24)
[2022-07-20] MEDS: methylPREDNISolone SOD SUCC 125 MG VIAL IV PUSH (16:08)
[2022-07-20] MEDS: ONDANSETRON INJ 4 MG/2 ML VIAL IV PUSH (16:08)
[2022-07-20] MEDS: MORPHINE SULFATE (*CRX) 2 MG/ML INJ IV PUSH ×3 (16:08→23:09)
[2022-07-20] MEDS: SODIUM CHLORIDE 0.9% IV 500 ML 999 ML IV CONT (16:09)
[2022-07-20 16:21] LABS: Albumin Level 1.9 g/dL (3.4-5.0); Alkaline Phosphatase 76 U/L (46-116); Anion Gap 11 mmol/L (8-16); Bilirubin,Total 0.5 mg/dL (0.00-1.00); Blood Urea Nitrogen 24 mg/dL (7-18); Calcium 8.2 mg/dL (8.5-10.1); Carbon Dioxide 23 mmol/L (21-32); Chloride 100 mmol/L (98-108); Estimated CRCL calculation 37 ml/min; Estimated Glomerular Filt Rate 47; Glucose 190 mg/dL (70-99); Lactic Acid Reflex 5.5 mmol/L (0.4-2.0); Osmolality Calculated 287 mOsm/kg (285-295); Potassium 4.2 mmol/L (3.5-5.1); Sodium 134 mmol/L (136-145); Troponin I 4.1 ng/L (0.00-60.4)
[2022-07-20 16:37] LABS: Alanine Aminotransferase 7 U/L (16-63); Aspartate Amino Transferase 10 U/L (15-37)
[2022-07-20 16:42] LABS: Band Neutrophils Percent 7 % (0-6); Basophils Percent Manual 0 % (0-1); Eosinophils Percent Manual 0 % (1-6); Lymphocytes Absolute Manual 0.99 K/mm3 (1.1-4.5); Lymphocytes Percent Manual 3 % (18-44); Monocytes Absolute Manual 0.33 K/mm3 (0.1-0.90); Monocytes Percent Manual 1 % (3-9); Neutrophils Absolute Manual 31.68 K/mm3 (1.3-6.7); Neutrophils Percent Manual 89 % (46-73); Platelet Estimate Adequate (Adequate); Total Cells Counted 100
[2022-07-20 16:48] LABS: Strep Group A RT-PCR Not Detected (Negative)
[2022-07-20 16:51] LABS: Influenza A QL RT-PCR Negative (Negative); Influenza B QL RT-PCR Negative (Negative); SARS-CoV-2 RNA PCR Negative (Negative)
[2022-07-20] MEDS: AZITHROMYCIN 250 MG TABLET 500 MG PO (17:00)
[2022-07-20 17:25] LABS: Base Excess ABG -4.5 mmol/L (0-2); Oxygen Content ABG 15.3 %vol (16.0-22.0); Oxygen Saturation ABG 94.5 % (95-97); Oxyhemoglobin 93.3 % (94-100); PCO2 ABG 25.9 mmHg (35-45); PO2 ABG 73.4 mmHg (80-90); Total Hemoglobin 11.6 g/dL (12.0-18.0); pH ABG 7.46 (7.35-7.45)
[2022-07-20 17:26] LABS: Device NASAL CANNULA; Modified Allen's Test Pass; Site Drawn RIGHT BRACHIAL
[2022-07-20 18:54] LABS: Reflex Lactic Acid Yes or No Add Lactic
--- NOTE | 2022-07-20 19:03 | PC.NURSE ---
Report to ALANNAH Pike. no questions
--- NOTE | 2022-07-20 20:13 | ED.SOB ---
HPI - SOB/Dyspnea General Chief Complaint: Shortness of Breath/Dyspnea Stated Complaint: struggling to breath;covid Time Seen by Provider: 07/20/22 15:18 Source: patient and RN notes reviewed Mode of arrival: ambulatory Limitations: no limitations History of Present Illness MD elicited complaint: shortness of breath and pain with inspiration Pertinent past history: COPD Onset (ago): day(s) (3) Timing: constant Severity: moderate Exacerbating factors: inspiration Relieving factors: nothing Known history of: COPD Associated symptoms: chest pain, pain with inspiration, fever, cough and wheezing Related Data Home Medications Medication Instructions Recorded Confirmed cyclobenzaprine 10 mg tablet 10 mg PO TID PRN Back Pain 05/30/22 07/20/22 morphine 30 mg immediate release 30 mg PO BID 05/30/22 07/20/22 tablet Allergies Allergy/AdvReac Type Severity Reaction Status Date / Time NSAIDS (Non-Steroidal AdvReac Mild Abdominal Verified 05/30/22 07:28 Anti-Inflamma Pain ibuprofen AdvReac Sick Verified 05/30/22 07:28 feeling prednisone AdvReac Sick Verified 05/30/22 07:28 feeling Review of Systems Review of Systems: All systems reviewed & are unremarkable except as noted in HPI and below Constitutional: Constitutional: Reports no additional constitutional complaints Eyes: Eyes: Reports no additional eye complaints ENT: Reports system reviewed and no additional complaints, except as documented Cardiovascular: Cardiovascular: Reports no additional cardiovascular complaints Respiratory: Respiratory: Reports no additional respiratory complaints, Reports dyspnea and Reports wheezing Comments: pleuritic lower right ribs painful. Gastrointestinal: Gastrointestinal: Reports no additional gastrointestinal complaints Genitourinary: Genitourinary: Reports no additional male genitourinary complaints Musculoskeletal: Musculoskeletal: Reports no additional musculoskeletal complaints Integumentary/Breasts: Skin/Breast: Reports system reviewed and no additional complaints, except as docu Neurologic: Reports system reviewed and no additional complaints, except as documented Psychiatric: Psychiatric: Reports no additional psychiatric complaints Endocrine: Endocrine: Reports no additional endocrine complaints Hematologic/Lymphatic: Hematologic/Lymphatic: Reports no additional hematologic/lymphatic complaints Allergic/Immunologic: Allergic/Immunologic: Reports no additional allergic/immunologic complaints [facility] Past Medical History Medical History Anxiety and depression Arthritis Cancer Chronic back pain Headache Hepatitis Hypertension Osteoporosis Pneumonia Restless leg syndrome Surgical History Surgical History Previous back surgery Family History Family History Mother Cancer Diabetes mellitus Sibling Cancer Social History Social History Smoking packs per day: 0.25 Smoking cigarettes per day: 5.0 Years smoked: 50 Smoking pack-years: 12.50 Smoking status: Current every day smoker Alcohol intake: never Substance use: never Substance use type: does not use Exam Const: General: no acute distress and diaphoretic Nutritional Appearance: thin Orientation/consciousness: patient oriented x3 Limitations: no limitations HENMT: Head: normal to inspection Ears: external ears normal, TM's normal bilaterally and EAC's normal Face/Nose/Sinus: Normal external nose present, Normal nares present, normal facial exam and sinuses nontender Face and sinus: normal facial exam and sinuses nontender Mouth: Yes Normal oral and palatal mucosa present and Yes moist mucous membranes Teeth and gingiva: dentition normal Throat: posterior oropharynx normal Eyes: Conjunct
[2022-07-20] MEDS: FUROSEMIDE INJ 40 MG/4 ML VIAL IV PUSH (20:47)
--- NOTE | 2022-07-20 21:50 | ADMGEN ---
This patient, Ray Ashley, was admitted to 2nd Floor Room 208-2. Patient oriented to hospital policies and general routines including ID bracelet, bed and alarms, visiting hours, pain management, procedures, bathroom and other care routines, personal items, smoking policy, room service/diet, and visiting hours. Information on how to activate the Rapid Response Team has been discussed. Patient are encouraged to report perceived risks to care and to ask questions if they do not understand what they are told or what they should do.
--- NOTE | 2022-07-20 22:01 | PC.NURSE ---
MR TEACHER lex notified of need to change pt's home med morphine po per pharmacy due to inavailability, pt does not want to have someone bring his med from home in, pt states pain level of 9 at this time, treasury assistant is aware
[2022-07-20] MEDS: buPROPion HCL SR (12 HR) 150 MG TAB PO (22:07)
[2022-07-20] MEDS: GABAPENTIN 100 MG CAPSULE PO (22:08)
[2022-07-20] MEDS: traZODone HCL 50 MG TABLET PO (22:08)
[2022-07-20] MEDS: DEXTROSE 5%/0.9% SOD CHL 1,000 ML 100 ML IV CONT (22:58)
[2022-07-20] MEDS: methylPREDNISolone SOD SUCC 40 MG VIAL 80 MG IV PUSH (23:00)
--- NOTE | 2022-07-20 23:30 | PC.NURSE ---
Pt brought a can of soft drink and a sandwich since he did not have dinner. Pt stated appreciation.
[2022-07-21] VITALS (21 sets, daily range): BP systolic 111–120; BP diastolic 69–90; PULSE 71–100; RESP 17–26; TEMP 36.3–37; O2SAT 90–94
[2022-07-21] MEDS: IPRATROPIUM 0.5 MG/ALBUTEROL SULFATE 2.5 MG AMPUL.NEB 3 ML INHALATION ×5 (00:05→23:39)
[2022-07-21] MEDS: MORPHINE SULFATE (*CRX) 2 MG/ML INJ IV PUSH ×2 (05:17→17:07)
--- NOTE | 2022-07-21 06:17 | PC.NURSE ---
This RN submitted an order for O2 administration via telephone read back order from Beny Chavarria NP. O2 running at 4L NC w/pt saturation at 93%.
[2022-07-21] MEDS: PROCHLORPERAZINE EDISYLATE 10 MG/2 ML VIAL IV PUSH (06:35)
[2022-07-21 07:25] LABS: Hematocrit 29.9 % (37.0-46.0); Hemoglobin 10.1 g/dL (12.4-15.3); Mean Corpuscular HGB Conc 33.8 g/dL (32.0-36.0); Mean Corpuscular Hemoglobin 33.9 pg (27.0-31.0); Mean Corpuscular Volume 100.3 fL (78.0-102.0); Mean Platelet Volume 10.1 fl (8.7-11.0); Platelet Count Result 336 K/mm3 (150-420); Red Blood Count 2.98 M/mm3 (4.70-6.10); Red Cell Distribution Width 13.1 % (11.6-14.4)
[2022-07-21 07:33] LABS: White Blood Count 26.6 K/mm3 (4.8-10.8)
[2022-07-21 07:41] LABS: Albumin Level 1.7 g/dL (3.4-5.0); Alkaline Phosphatase 68 U/L (46-116); Anion Gap 11 mmol/L (8-16); Aspartate Amino Transferase 10 U/L (15-37); Bilirubin,Total 0.4 mg/dL (0.00-1.00); Blood Urea Nitrogen 32 mg/dL (7-18); Calcium 8.2 mg/dL (8.5-10.1); Carbon Dioxide 23 mmol/L (21-32); Chloride 102 mmol/L (98-108); Estimated CRCL calculation 50 ml/min; Estimated Glomerular Filt Rate > 60; Glucose 172 mg/dL (70-99); Osmolality Calculated 292 mOsm/kg (285-295); Potassium 3.5 mmol/L (3.5-5.1); Sodium 136 mmol/L (136-145); Total Protein 6.4 g/dL (6.4-8.2)
[2022-07-21 07:44] LABS: Alanine Aminotransferase < 6 U/L (16-63)
[2022-07-21 07:46] LABS: Lactic Acid Reflex 3.1 mmol/L (0.4-2.0)
[2022-07-21 08:05] LABS: D Dimer 2.64 mg/L (0.19-0.50)
--- NOTE | 2022-07-21 08:18 | PM.IMHP ---
H&P: HPI History of Present Illness Date/Time: 07/21/22 08:18 Chief Complaint: weakness shortness of breath Narrative: this is a 67-year-old male who presented to our urgent care with complaints of shortness of breath and right side pain. Patient has a past medical history anxiety and depression, chronic back pain, hepatitis, hypertension, osteoporosis, pneumonia, restless leg syndrome,copd and cancer. According to patient for the last 2 days he has not been out of bed patient notes that he has been short of breath and feeling febrile. Patient knows that he has chronic back pain concealed has Rods to his back. patient also notes that he has pain to his right lower abdominal area that radiates to his side and lower back. Patient WBC on admission 33.0, hemoglobin 12.1, hematocrit 36.5, platelets 452, influenza COVID negative, ABGs pH 7.46 CO2 25.9 O2 73.4 bicarb 18, sodium 134, potassium 4.2, BUN 24, creatinine 1 9, lactic acid 5.5, total bilirubin 0.5, AST 10, ALT 7, troponin imaging indicate pneumonia also indicate now aorta aneurysm and at least 2 right lower lobe mass. patient informed of to mass in his right lower lobes patient will need to follow up with an oncologist on discharge. Patient will be treated for pneumonia he will more than likely need a home to evaluation on discharge. The patient denies , CP, palpitation, extremity numbness, lightheadedness, dizziness, constipation, diarrhea, chills, or fever. Patient is still experiencing shortness of breath and his pain is uncontrolled. We will adjust his pain medications Review of Systems Review of Systems: A 14 organ system Review of Systems was performed and pertinent positives included in the HPI, otherwise remaining ROS is negative. [facility] Past Medical History Medical History Anxiety and depression Arthritis Cancer Chronic back pain Headache Hepatitis Hypertension Osteoporosis Pneumonia Restless leg syndrome Surgical History Surgical History Previous back surgery Family History Family History Mother Cancer Diabetes mellitus Sibling Cancer Social History Social History Smoking packs per day: 0.25 Smoking cigarettes per day: 5.0 Years smoked: 51 Smoking pack-years: 12.75 Smoking status: Former smoker Tobacco type: cigarettes Smoking end date: 07/09/22 Alcohol intake: former Substance use: current Substance use type: painkillers and prescription drug Lack of Transportation: No Lack of Food: Sometimes True Current Housing: I Have Housing Concerned About Future Housing: No Difficulty Paying Gas/Electric Bills: No Difficulty Paying for Meds: No Currently Unemployed: No Education: High School Diploma/GED Difficulty w/ Childcare or Family Care: No Spiritual care concerns: Yes (Gnosticist) Meds Home Medications and Allergies Home Medications Medication Instructions Recorded Confirmed Type gabapentin 100 mg capsule See Rx Instructions .Route 04/19/22 07/20/22 Rx .COMPLEX #90 caps bupropion HCl 150 mg tablet,12 hr 150 mg PO BID #180 tabs 05/30/22 07/20/22 Rx sustained-release cyclobenzaprine 10 mg tablet 10 mg PO TID PRN Back Pain 05/30/22 07/20/22 History morphine 30 mg immediate release 30 mg PO BID 05/30/22 07/20/22 History tablet nicotine 21 mg/24 hr daily 1 patch transdermal DAILY #28 ea 06/04/22 07/20/22 Rx transdermal patch albuterol sulfate 90 mcg/actuation 1 puff inhalation Q4H PRN 07/11/22 07/20/22 Rx aerosol inhaler (Ventolin HFA) shortness of breath or wheezing #8 grams fluticasone propionate 50 1 spray intranasal DAILY #9.9 mL 07/11/22 07/20/22 Rx mcg/actuation nasal spray,suspension (Allergy Relief (fluticasone)) fluoxetine 20 mg capsule See
[2022-07-21 08:22] LABS: Band Neutrophils Percent 3 % (0-6); Basophils Percent Manual 0 % (0-1); Eosinophils Percent Manual 0 % (1-6); Lymphocytes Absolute Manual 0.53 K/mm3 (1.1-4.5); Lymphocytes Percent Manual 2 % (18-44); Monocytes Absolute Manual 0.26 K/mm3 (0.1-0.90); Monocytes Percent Manual 1 % (3-9); Neutrophils Percent Manual 94 % (46-73); Platelet Estimate Adequate (Adequate); Total Cells Counted 100
[2022-07-21] MEDS: NICOTINE (*PBKC) 21 MG PATCH 1 PATCH TRANSDERM (09:33)
[2022-07-21] MEDS: SODIUM CHLORIDE 0.9% IV 1,000 ML 100 ML IV CONT ×2 (09:33→21:41)
[2022-07-21] MEDS: FLUTICASONE PROPIONATE 0.05% NA SPR 16 GM BTL (*BKC) 1 SPRAY NASAL (09:34)
[2022-07-21] MEDS: methylPREDNISolone SOD SUCC 40 MG VIAL 80 MG IV PUSH ×3 (09:34→17:00)
[2022-07-21] MEDS: MORPHINE SULFATE (*CRX) 30 MG TABCR PO ×2 (09:34→20:35)
[2022-07-21] MEDS: GABAPENTIN 100 MG CAPSULE PO ×3 (09:35→17:01)
[2022-07-21] MEDS: guaiFENesin 12 HR 600 MG TABCR 1200 MG PO ×2 (09:35→20:34)
[2022-07-21] MEDS: FLUoxetine HCL 20 MG CAPSULE 60 MG PO (09:35)
[2022-07-21] MEDS: ENOXAPARIN 40 MG/0.4 ML SYRINGE SUB-Q (09:35)
[2022-07-21 10:22] LABS: Reflex Lactic Acid Yes or No Add Lactic
[2022-07-21 12:02] LABS: Lactic Acid 2.9 mmol/L (0.4-2.0)
[2022-07-21] MEDS: traZODone HCL 50 MG TABLET PO (20:34)
[2022-07-21] MEDS: buPROPion HCL SR (12 HR) 150 MG TAB PO (20:35)
--- NOTE | 2022-07-22 05:23 | PC.NURSE ---
lab called to report a critical WBC of 20.7.
[2022-07-22 05:30] LABS: Hematocrit 22.7 % (37.0-46.0); Hemoglobin 7.4 g/dL (12.4-15.3); Mean Corpuscular HGB Conc 32.6 g/dL (32.0-36.0); Mean Corpuscular Hemoglobin 32.9 pg (27.0-31.0); Mean Corpuscular Volume 100.9 fL (78.0-102.0); Mean Platelet Volume 10.1 fl (8.7-11.0); Platelet Count Result 295 K/mm3 (150-420); Red Blood Count 2.25 M/mm3 (4.70-6.10); Red Cell Distribution Width 13.2 % (11.6-14.4)
[2022-07-22 05:34] LABS: White Blood Count 20.7 K/mm3 (4.8-10.8)
[2022-07-22 05:41] LABS: Alanine Aminotransferase 14 U/L (16-63); Albumin Level 1.4 g/dL (3.4-5.0); Alkaline Phosphatase 59 U/L (46-116); Anion Gap 7 mmol/L (8-16); Aspartate Amino Transferase 24 U/L (15-37); Bilirubin,Total 0.2 mg/dL (0.00-1.00); Blood Urea Nitrogen 29 mg/dL (7-18); Calcium 7.7 mg/dL (8.5-10.1); Carbon Dioxide 26 mmol/L (21-32); Chloride 105 mmol/L (98-108); Estimated CRCL calculation 62 ml/min; Estimated Glomerular Filt Rate > 60; Glucose 135 mg/dL (70-99); Magnesium 1.8 mg/dL (1.8-2.4); Osmolality Calculated 293 mOsm/kg (285-295); Potassium 3.9 mmol/L (3.5-5.1); Sodium 138 mmol/L (136-145); Total Protein 5.7 g/dL (6.4-8.2)
[2022-07-22 05:52] VITALS: O2SAT 91
[2022-07-22] MEDS: MORPHINE SULFATE (*CRX) 2 MG/ML INJ IV PUSH ×2 (06:01→18:29)
[2022-07-22] MEDS: IPRATROPIUM 0.5 MG/ALBUTEROL SULFATE 2.5 MG AMPUL.NEB 3 ML INHALATION (06:40)
[2022-07-22 06:45] VITALS: PULSE 72; RESP 18; O2SAT 90
[2022-07-22 07:05] VITALS: PULSE 74; RESP 18
[2022-07-22 08:00] VITALS: BP 112/68; PULSE 86; RESP 17; TEMP 36.1; O2SAT 92
[2022-07-22] MEDS: FLUTICASONE PROPIONATE 0.05% NA SPR 16 GM BTL (*BKC) 1 SPRAY NASAL (08:00)
[2022-07-22] MEDS: guaiFENesin 12 HR 600 MG TABCR 1200 MG PO ×2 (08:00→21:13)
[2022-07-22] MEDS: NICOTINE (*PBKC) 21 MG PATCH 1 PATCH TRANSDERM (08:00)
[2022-07-22] MEDS: methylPREDNISolone SOD SUCC 40 MG VIAL 80 MG IV PUSH (08:00)
[2022-07-22] MEDS: ENOXAPARIN 40 MG/0.4 ML SYRINGE SUB-Q (08:00)
[2022-07-22] MEDS: GABAPENTIN 100 MG CAPSULE PO ×3 (08:01→17:55)
[2022-07-22] MEDS: MORPHINE SULFATE (*CRX) 30 MG TABCR PO ×2 (08:01→21:13)
[2022-07-22] MEDS: SODIUM CHLORIDE 0.9% IV 1,000 ML 100 ML IV CONT (08:01)
[2022-07-22] MEDS: FLUoxetine HCL 20 MG CAPSULE 60 MG PO (08:01)
--- NOTE | 2022-07-22 09:07 | P.PN_ITS ---
Progress Note: A&P Assessment and Plan (1) Pneumonia: Code(s): J18.9 - Pneumonia, unspecified organism Status: Acute Assessment and Plan: * imaging indicate pneumonia * patient febrile, tachycardia, tachypnea and leukocytosis * wbc's 33.0>26.6>20.7 * patient received azithromycin Rocephin in the ED currently taking Rocephin and vancomycin azithromycin DC due to prolonged QT * continue Solu-Medrol and dual nebulizer * blood culture preliminary no growth (2) Sepsis: Code(s): A41.9 - Sepsis, unspecified organism Status: Acute Assessment and Plan: * secondary to pneumonia * as evidenced by febrile, tachycardia, tachypnea and leukocytosis * wbc's 33.0>26.6 * patient received azithromycin Rocephin in the ED currently taking Rocephin and vancomycin azithromycin DC due to prolonged QT * (3) Acute exacerbation of chronic obstructive airways disease: Code(s): J44.1 - Chronic obstructive pulmonary disease with (acute) exacerbation Status: Acute Assessment and Plan: * worsened with pneumonia * patient received azithromycin Rocephin in the ED currently taking Rocephin and vancomycin azithromycin DC due to prolonged QT * continue Solu-Medrol , started Symbicort * patient will more than likely need home to evaluation * WBC in a.m. will trend * blood culture preliminary no growth (4) Pleurisy with effusion: Code(s): J90 - Pleural effusion, not elsewhere classified Status: Acute Assessment and Plan: * imaging indicates along the anterior lower mediastinum and mild posterior lateral right pleural effusion * patient will need to follow up with oncologist or primary care physician on discharge * patient given Lasix in ED (5) Lung nodule, multiple: Code(s): R91.8 - Other nonspecific abnormal finding of lung field Status: Acute Assessment and Plan: * imaging indicate At least 2 right lower lobe masses, measuring 18 mm in the right infrahilar area, 13 mm in the posterior medial right lower lobe. Primary pulmonary malignancy metastatic deposits * patient will need to follow-up with oncology (6) Depression with anxiety: Code(s): F41.8 - Other specified anxiety disorders Status: Acute Assessment and Plan: * continue home medication (7) Chronic back pain: Code(s): M54.9 - Dorsalgia, unspecified; G89.29 - Other chronic pain Status: Acute Assessment and Plan: * continue pain medication (8) Elevated d-dimer: Code(s): R79.89 - Other specified abnormal findings of blood chemistry Status: Acute Assessment and Plan: * elevated D-dimer * CTA no PE noted Subjective Date/time seen: 07/22/22 09:07 Interval history: patient notes that his condition has improved. patient notes that his pain is well controlled he still continues to have left side pain with improvement. The patient denies CP, palpitation, extremity numbness, lightheadedness, dizziness, constipation, diarrhea, chills, or fever. Will continue to monitor patient's white blood cell count and blood culture patient will receive a home oxygen eval before discharge we also discussed the important of him following up with an oncologist. Exam Narrative: GENERAL: frail appears malnutrition, in no apparent distress. HEAD: normocephalic, atraumatic. EYES: PERRL. Sclera clear/white. Vision is grossly intact. EARS: External ears normal, auditory canals clear and without drainage, TMs normal without perforation. Hearing grossly intact.
--- NOTE | 2022-07-22 09:07 | WPDPN ---
Progress Note: A&P Assessment and Plan (1) Pneumonia: Code(s): J18.9 - Pneumonia, unspecified organism Status: Acute Assessment and Plan: imaging indicate pneumonia patient febrile, tachycardia, tachypnea and leukocytosis wbc's 33.0>26.6>20.7 patient received azithromycin Rocephin in the ED currently taking Rocephin and vancomycin azithromycin DC due to prolonged QT continue Solu-Medrol and dual nebulizer blood culture preliminary no growth (2) Sepsis: Code(s): A41.9 - Sepsis, unspecified organism Status: Acute Assessment and Plan: secondary to pneumonia as evidenced by febrile, tachycardia, tachypnea and leukocytosis wbc's 33.0>26.6 patient received azithromycin Rocephin in the ED currently taking Rocephin and vancomycin azithromycin DC due to prolonged QT (3) Acute exacerbation of chronic obstructive airways disease: Code(s): J44.1 - Chronic obstructive pulmonary disease with (acute) exacerbation Status: Acute Assessment and Plan: worsened with pneumonia patient received azithromycin Rocephin in the ED currently taking Rocephin and vancomycin azithromycin DC due to prolonged QT continue Solu-Medrol , started Symbicort patient will more than likely need home to evaluation WBC in a.m. will trend blood culture preliminary no growth (4) Pleurisy with effusion: Code(s): J90 - Pleural effusion, not elsewhere classified Status: Acute Assessment and Plan: imaging indicates along the anterior lower mediastinum and mild posterior lateral right pleural effusion patient will need to follow up with oncologist or primary care physician on discharge patient given Lasix in ED (5) Lung nodule, multiple: Code(s): R91.8 - Other nonspecific abnormal finding of lung field Status: Acute Assessment and Plan: imaging indicate At least 2 right lower lobe masses, measuring 18 mm in the right infrahilar area, 13 mm in the posterior medial right lower lobe. Primary pulmonary malignancy metastatic deposits patient will need to follow-up with oncology (6) Depression with anxiety: Code(s): F41.8 - Other specified anxiety disorders Status: Acute Assessment and Plan: continue home medication (7) Chronic back pain: Code(s): M54.9 - Dorsalgia, unspecified; G89.29 - Other chronic pain Status: Acute Assessment and Plan: continue pain medication (8) Elevated d-dimer: Code(s): R79.89 - Other specified abnormal findings of blood chemistry Status: Acute Assessment and Plan: elevated D-dimer CTA no PE noted Subjective Date/time seen: 07/22/22 09:07 Interval history: patient notes that his condition has improved. patient notes that his pain is well controlled he still continues to have left side pain with improvement. The patient denies CP, palpitation, extremity numbness, lightheadedness, dizziness, constipation, diarrhea, chills, or fever. Will continue to monitor patient's white blood cell count and blood culture patient will receive a home oxygen eval before discharge we also discussed the important of him following up with an oncologist. Exam Narrative: GENERAL: frail appears malnutrition, in no apparent distress. HEAD: normocephalic, atraumatic. EYES: PERRL. Sclera clear/white. Vision is grossly intact. EARS: External ears normal, auditory canals clear and without drainage, TMs normal without perforation. Hearing grossly intact. NOSE: External nose normal with no obvious nasal discharge, nares without redness, no rhinorrhea. THROAT: Mucous membranes moist, posterior pharynx clear. NECK: Neck supple, non-tender without lymphadenopathy, masses or thyromegaly. CARDIOVASCULAR: Regular rate and rhythm without murmurs, gallops, or rubs. RESPIRATORY: diminished throughout GASTROINTESTINAL: Abdomen soft, non-tender, nondistended. Bowel sounds ar
[2022-07-22 09:26] LABS: Lactic Acid Reflex 2.2 mmol/L (0.4-2.0)
[2022-07-22 12:08] LABS: Reflex Lactic Acid Yes or No Add Lactic
[2022-07-22] MEDS: CALCIUM CARBONATE (TUMS) 500 MG (200 MG ELEMENTAL) PO (14:38)
[2022-07-22 15:57] VITALS: BP 118/71; PULSE 84; RESP 18; TEMP 36.6; O2SAT 91
[2022-07-22 16:25] LABS: Lactic Acid 2.7 mmol/L (0.4-2.0)
[2022-07-22] MEDS: BUDESONIDE/FORMOTEROL (*SP) 160-4.5 MCG 6 GM INH 2 PUFF INHALATION (17:53)
--- NOTE | 2022-07-22 19:39 | PC.NURSE ---
Patient c/o abd pain that he rates as a 7. Pain medication given. Patient now resting quietly.
[2022-07-22] MEDS: traZODone HCL 50 MG TABLET 100 MG PO (21:14)
[2022-07-22 23:02] VITALS: BP 108/63; PULSE 79; RESP 18; TEMP 36.6; O2SAT 91
[2022-07-23] MEDS: ALBUTEROL SULFATE (*SP) INHALER 2 PUFF INHALATION ×2 (05:03→09:09)
[2022-07-23 05:18] LABS: Hematocrit 22.6 % (37.0-46.0); Hemoglobin 7.4 g/dL (12.4-15.3); Mean Corpuscular HGB Conc 32.7 g/dL (32.0-36.0); Mean Corpuscular Hemoglobin 33.3 pg (27.0-31.0); Mean Corpuscular Volume 101.8 fL (78.0-102.0); Mean Platelet Volume 10.2 fl (8.7-11.0); Platelet Count Result 332 K/mm3 (150-420); Red Blood Count 2.22 M/mm3 (4.70-6.10); Red Cell Distribution Width 13.2 % (11.6-14.4)
[2022-07-23 05:30] VITALS: O2SAT 93
[2022-07-23 05:37] LABS: Alanine Aminotransferase 32 U/L (16-63); Albumin Level 1.5 g/dL (3.4-5.0); Alkaline Phosphatase 69 U/L (46-116); Anion Gap 8 mmol/L (8-16); Aspartate Amino Transferase 47 U/L (15-37); Bilirubin,Total 0.2 mg/dL (0.00-1.00); Blood Urea Nitrogen 29 mg/dL (7-18); Calcium 8.4 mg/dL (8.5-10.1); Carbon Dioxide 27 mmol/L (21-32); Chloride 105 mmol/L (98-108); Estimated CRCL calculation 64 ml/min; Estimated Glomerular Filt Rate > 60; Glucose 124 mg/dL (70-99); Osmolality Calculated 296 mOsm/kg (285-295); Potassium 3.9 mmol/L (3.5-5.1); Sodium 140 mmol/L (136-145)
[2022-07-23 05:39] LABS: White Blood Count 22.6 K/mm3 (4.8-10.8)
--- NOTE | 2022-07-23 05:40 | PC.NURSE ---
Teagan from laboratory called for a critical WBC count for the pt. This RN notified Beny Chavarria NP on the updated lab value.
[2022-07-23] MEDS: HYDROcodone/acetaminophen (*CRX) 10-325 MG TABLET 1 TAB PO ×2 (06:10→12:49)
[2022-07-23] MEDS: BUDESONIDE/FORMOTEROL (*SP) 160-4.5 MCG 6 GM INH 2 PUFF INHALATION ×2 (06:11→17:51)
[2022-07-23 08:00] VITALS: BP 133/66; PULSE 76; TEMP 36.6; O2SAT 96
[2022-07-23] MEDS: FLUTICASONE PROPIONATE 0.05% NA SPR 16 GM BTL (*BKC) 1 SPRAY NASAL (09:09)
[2022-07-23] MEDS: NICOTINE (*PBKC) 21 MG PATCH 1 PATCH TRANSDERM (09:10)
[2022-07-23] MEDS: ENOXAPARIN 40 MG/0.4 ML SYRINGE SUB-Q (09:10)
[2022-07-23] MEDS: buPROPion HCL SR (12 HR) 150 MG TAB PO ×2 (09:11→20:31)
[2022-07-23] MEDS: FLUoxetine HCL 20 MG CAPSULE 60 MG PO (09:11)
[2022-07-23] MEDS: GABAPENTIN 100 MG CAPSULE PO ×3 (09:11→17:19)
[2022-07-23] MEDS: guaiFENesin 12 HR 600 MG TABCR 1200 MG PO ×2 (09:11→20:31)
[2022-07-23] MEDS: MORPHINE SULFATE (*CRX) 30 MG TABCR PO ×2 (09:12→20:32)
[2022-07-23 09:28] LABS: Lactic Acid Reflex 2.8 mmol/L (0.4-2.0)
--- NOTE | 2022-07-23 10:18 | P.PN_ITS ---
Progress Note: A&P Assessment and Plan (1) Pneumonia: Code(s): J18.9 - Pneumonia, unspecified organism Status: Acute Assessment and Plan: * imaging indicate pneumonia * patient febrile, tachycardia, tachypnea and leukocytosis * wbc's 33.0>26.6>20.7>22.6 * patient received azithromycin Rocephin in the ED currently taking Rocephin and vancomycin azithromycin DC due to prolonged QT * will titrate steroids continue albuterol and Symbicort * blood culture preliminary no growth (2) Sepsis: Code(s): A41.9 - Sepsis, unspecified organism Status: Acute Assessment and Plan: * secondary to pneumonia * as evidenced by febrile, tachycardia, tachypnea and leukocytosis * wbc's 33.0>26.6>22.6 * patient received azithromycin Rocephin in the ED currently taking Rocephin and vancomycin azithromycin DC due to prolonged QT * (3) Acute exacerbation of chronic obstructive airways disease: Code(s): J44.1 - Chronic obstructive pulmonary disease with (acute) exacerbation Status: Acute Assessment and Plan: * worsened with pneumonia * patient received azithromycin Rocephin in the ED currently taking Rocephin and vancomycin azithromycin DC due to prolonged QT * continue Solu-Medrol , started Symbicort * patient will more than likely need home to evaluation * WBC in a.m. will trend * blood culture preliminary no growth (4) Pleurisy with effusion: Code(s): J90 - Pleural effusion, not elsewhere classified Status: Acute Assessment and Plan: * imaging indicates along the anterior lower mediastinum and mild posterior lateral right pleural effusion * patient will need to follow up with oncologist or primary care physician on discharge * patient given Lasix in ED (5) Lung nodule, multiple: Code(s): R91.8 - Other nonspecific abnormal finding of lung field Status: Acute Assessment and Plan: * imaging indicate At least 2 right lower lobe masses, measuring 18 mm in the right infrahilar area, 13 mm in the posterior medial right lower lobe. Primary pulmonary malignancy metastatic deposits * patient will need to follow-up with oncology (6) Depression with anxiety: Code(s): F41.8 - Other specified anxiety disorders Status: Acute Assessment and Plan: * continue home medication (7) Chronic back pain: Code(s): M54.9 - Dorsalgia, unspecified; G89.29 - Other chronic pain Status: Acute Assessment and Plan: * continue pain medication (8) Elevated d-dimer: Code(s): R79.89 - Other specified abnormal findings of blood chemistry Status: Acute Assessment and Plan: * elevated D-dimer * CTA no PE noted Subjective Date/time seen: 07/23/22 10:18 Interval history: patient notes that his condition has improved. patient notes that his pain is well controlled he still continues to have left side pain with improvement. The patient denies CP, palpitation, extremity numbness, lightheadedness, dizziness, constipation, diarrhea, chills, or fever. Will continue to monitor patient's white blood cell count and blood culture patient will receive a home oxygen eval before discharge we also discussed the important of him following up with an oncologist. Review of Systems Review of Systems: All systems reviewed & are unremarkable except as noted in HPI and below Exam Narrative: GENERAL: frail appears malnutrition, in no apparent distress. HEAD: normocephalic, atraumatic. EYES: PERRL. Scle
--- NOTE | 2022-07-23 10:18 | WPDPN ---
Progress Note: A&P Assessment and Plan (1) Pneumonia: Code(s): J18.9 - Pneumonia, unspecified organism Status: Acute Assessment and Plan: imaging indicate pneumonia patient febrile, tachycardia, tachypnea and leukocytosis wbc's 33.0>26.6>20.7>22.6 patient received azithromycin Rocephin in the ED currently taking Rocephin and vancomycin azithromycin DC due to prolonged QT will titrate steroids continue albuterol and Symbicort blood culture preliminary no growth (2) Sepsis: Code(s): A41.9 - Sepsis, unspecified organism Status: Acute Assessment and Plan: secondary to pneumonia as evidenced by febrile, tachycardia, tachypnea and leukocytosis wbc's 33.0>26.6>22.6 patient received azithromycin Rocephin in the ED currently taking Rocephin and vancomycin azithromycin DC due to prolonged QT (3) Acute exacerbation of chronic obstructive airways disease: Code(s): J44.1 - Chronic obstructive pulmonary disease with (acute) exacerbation Status: Acute Assessment and Plan: worsened with pneumonia patient received azithromycin Rocephin in the ED currently taking Rocephin and vancomycin azithromycin DC due to prolonged QT continue Solu-Medrol , started Symbicort patient will more than likely need home to evaluation WBC in a.m. will trend blood culture preliminary no growth (4) Pleurisy with effusion: Code(s): J90 - Pleural effusion, not elsewhere classified Status: Acute Assessment and Plan: imaging indicates along the anterior lower mediastinum and mild posterior lateral right pleural effusion patient will need to follow up with oncologist or primary care physician on discharge patient given Lasix in ED (5) Lung nodule, multiple: Code(s): R91.8 - Other nonspecific abnormal finding of lung field Status: Acute Assessment and Plan: imaging indicate At least 2 right lower lobe masses, measuring 18 mm in the right infrahilar area, 13 mm in the posterior medial right lower lobe. Primary pulmonary malignancy metastatic deposits patient will need to follow-up with oncology (6) Depression with anxiety: Code(s): F41.8 - Other specified anxiety disorders Status: Acute Assessment and Plan: continue home medication (7) Chronic back pain: Code(s): M54.9 - Dorsalgia, unspecified; G89.29 - Other chronic pain Status: Acute Assessment and Plan: continue pain medication (8) Elevated d-dimer: Code(s): R79.89 - Other specified abnormal findings of blood chemistry Status: Acute Assessment and Plan: elevated D-dimer CTA no PE noted Subjective Date/time seen: 07/23/22 10:18 Interval history: patient notes that his condition has improved. patient notes that his pain is well controlled he still continues to have left side pain with improvement. The patient denies CP, palpitation, extremity numbness, lightheadedness, dizziness, constipation, diarrhea, chills, or fever. Will continue to monitor patient's white blood cell count and blood culture patient will receive a home oxygen eval before discharge we also discussed the important of him following up with an oncologist. Review of Systems Review of Systems: All systems reviewed & are unremarkable except as noted in HPI and below Exam Narrative: GENERAL: frail appears malnutrition, in no apparent distress. HEAD: normocephalic, atraumatic. EYES: PERRL. Sclera clear/white. Vision is grossly intact. EARS: External ears normal, auditory canals clear and without drainage, TMs normal without perforation. Hearing grossly intact. NOSE: External nose normal with no obvious nasal discharge, nares without redness, no rhinorrhea. THROAT: Mucous membranes moist, posterior pharynx clear. NECK: Neck supple, non-tender without lymphadenopathy, masses or thyromegaly. CARDIOVASCULAR: Regular rate and rhythm withou
[2022-07-23] MEDS: SODIUM CHLORIDE 0.9% IV 1,000 ML 999 ML (10:40)
[2022-07-23] MEDS: SODIUM CHLORIDE 0.9% IV 1,000 ML 999 ML IV CONT (10:58)
[2022-07-23 12:11] LABS: Reflex Lactic Acid Yes or No Add Lactic
[2022-07-23 12:59] LABS: Lactic Acid 2.6 mmol/L (0.4-2.0)
[2022-07-23 16:00] VITALS: BP 108/62; PULSE 70; RESP 18; TEMP 36; O2SAT 93
[2022-07-23] MEDS: MORPHINE SULFATE (*CRX) 2 MG/ML INJ IV PUSH (17:47)
[2022-07-23 19:16] LABS: Add Urine Microscopic? YES; Appearance Urine Clear (Clear); Bilirubin Urine Negative (Negative); Blood Urine Negative (Negative); Color Urine Yellow (Yellow); Glucose Urine UA Negative (Negative); Ketones Urine Negative (Negative); Leukocyte Esterase Ur Negative LEU/UL (Negative); Nitrate Urine Negative (Negative); Protein Urine Negative (Negative); Specific Grav Ur 1.015 (1.010-1.020)
[2022-07-23 19:46] LABS: Bacteria Urine Trace /hpf; RBC Urine 0-2 /hpf (0-2); Squamous Epithelial Cell Urine None seen /hpf (Few); WBC Urine 0-3 /hpf (0-3)
[2022-07-23] MEDS: LORazepam (*CRX) 0.5 MG TABLET PO (19:58)
[2022-07-23] MEDS: traZODone HCL 50 MG TABLET 100 MG PO (20:32)
[2022-07-23 21:43] LABS: Vancomycin Trough 6.3 ug/mL (10.0-15.0)
[2022-07-23 23:25] VITALS: BP 103/64; PULSE 74; RESP 18; TEMP 36.6; O2SAT 93
[2022-07-24] MEDS: LORazepam (*CRX) 0.5 MG TABLET PO ×2 (01:53→16:17)
[2022-07-24] MEDS: HYDROcodone/acetaminophen (*CRX) 10-325 MG TABLET 1 TAB PO ×2 (05:12→16:02)
[2022-07-24 05:39] LABS: Hematocrit 22.6 % (37.0-46.0); Hemoglobin 7.4 g/dL (12.4-15.3); Mean Corpuscular HGB Conc 32.7 g/dL (32.0-36.0); Mean Corpuscular Hemoglobin 33.6 pg (27.0-31.0); Mean Corpuscular Volume 102.7 fL (78.0-102.0); Platelet Count Result 319 K/mm3 (150-420); Red Cell Distribution Width 13.4 % (11.6-14.4); White Blood Count 18.2 K/mm3 (4.8-10.8)
[2022-07-24 05:44] VITALS: O2SAT 92
[2022-07-24 05:50] LABS: Alanine Aminotransferase 31 U/L (16-63); Albumin Level 1.6 g/dL (3.4-5.0); Alkaline Phosphatase 60 U/L (46-116); Anion Gap 9 mmol/L (8-16); Aspartate Amino Transferase 27 U/L (15-37); Bilirubin,Total 0.2 mg/dL (0.00-1.00); Blood Urea Nitrogen 21 mg/dL (7-18); Calcium 7.9 mg/dL (8.5-10.1); Carbon Dioxide 28 mmol/L (21-32); Chloride 104 mmol/L (98-108); Estimated CRCL calculation 62 ml/min; Estimated Glomerular Filt Rate > 60; Glucose 75 mg/dL (70-99); Osmolality Calculated 294 mOsm/kg (285-295); Potassium 3.6 mmol/L (3.5-5.1); Sodium 141 mmol/L (136-145); Total Protein 5.9 g/dL (6.4-8.2)
[2022-07-24 08:00] VITALS: BP 129/81; PULSE 94; RESP 18; TEMP 36.1
[2022-07-24] MEDS: guaiFENesin 12 HR 600 MG TABCR 1200 MG PO ×2 (09:01→20:26)
[2022-07-24] MEDS: DEXAMETHASONE 2 MG TABLET PO (09:02)
[2022-07-24] MEDS: GABAPENTIN 100 MG CAPSULE PO ×3 (09:02→16:03)
[2022-07-24] MEDS: MORPHINE SULFATE (*CRX) 30 MG TABCR PO ×2 (09:02→20:27)
[2022-07-24] MEDS: NICOTINE (*PBKC) 21 MG PATCH 1 PATCH TRANSDERM (09:02)
[2022-07-24] MEDS: FLUoxetine HCL 20 MG CAPSULE 60 MG PO (09:02)
[2022-07-24] MEDS: buPROPion HCL SR (12 HR) 150 MG TAB PO ×2 (09:02→20:26)
[2022-07-24] MEDS: ENOXAPARIN 40 MG/0.4 ML SYRINGE SUB-Q (09:02)
[2022-07-24] MEDS: BUDESONIDE/FORMOTEROL (*SP) 160-4.5 MCG 6 GM INH 2 PUFF INHALATION ×2 (09:04→18:08)
--- NOTE | 2022-07-24 09:43 | P.PN_ITS ---
Progress Note: A&P Assessment and Plan (1) Pneumonia: Code(s): J18.9 - Pneumonia, unspecified organism Status: Acute Assessment and Plan: * imaging indicate pneumonia * patient febrile, tachycardia, tachypnea and leukocytosis * wbc's 33.0>26.6>20.7>22.6>18.2 * patient received azithromycin Rocephin in the ED currently taking Rocephin and vancomycin azithromycin DC due to prolonged QT * continue albuterol and Symbicort * blood culture preliminary no growth (2) Sepsis: Code(s): A41.9 - Sepsis, unspecified organism Status: Acute Assessment and Plan: * possibly secondary to pneumonia blood culture is negative but unsure if patient received antibiotics before collection of blood culture * as evidenced by febrile, tachycardia, tachypnea and leukocytosis * wbc's 33.0>26.6>22.6>18.2 * patient received azithromycin Rocephin in the ED currently taking Rocephin and vancomycin azithromycin DC due to prolonged QT * (3) Acute exacerbation of chronic obstructive airways disease: Code(s): J44.1 - Chronic obstructive pulmonary disease with (acute) exacerbation Status: Acute Assessment and Plan: * stable * worsened with pneumonia * patient received azithromycin Rocephin in the ED currently taking Rocephin and vancomycin azithromycin DC due to prolonged QT * cont Symbicort * patient will more than likely need home to evaluation * WBC in a.m. will trend * blood culture preliminary no growth (4) Pleurisy with effusion: Code(s): J90 - Pleural effusion, not elsewhere classified Status: Acute Assessment and Plan: * imaging indicates along the anterior lower mediastinum and mild posterior lateral right pleural effusion * patient will need to follow up with oncologist or primary care physician on discharge * patient given Lasix in ED (5) Lung nodule, multiple: Code(s): R91.8 - Other nonspecific abnormal finding of lung field Status: Acute Assessment and Plan: * imaging indicate At least 2 right lower lobe masses, measuring 18 mm in the right infrahilar area, 13 mm in the posterior medial right lower lobe. Primary pulmonary malignancy metastatic deposits * patient will need to follow-up with oncology (6) Depression with anxiety: Code(s): F41.8 - Other specified anxiety disorders Status: Acute Assessment and Plan: * continue home medication (7) Chronic back pain: Code(s): M54.9 - Dorsalgia, unspecified; G89.29 - Other chronic pain Status: Acute Assessment and Plan: * continue pain medication (8) Elevated d-dimer: Code(s): R79.89 - Other specified abnormal findings of blood chemistry Status: Acute Assessment and Plan: * elevated D-dimer * CTA no PE noted Subjective Date/time seen: 07/24/22 09:43 Interval history: patient notes that his condition has improved. patient notes that his pain is well controlled he still continues to have left side pain with improvement. The patient denies CP, palpitation, extremity numbness, lightheadedness, dizziness, constipation, diarrhea, chills, or fever. patient anxious to discharge his white count is trending down worse could possibly discharge in the a.m. he will more than likely need a home to evaluation he will be set up in given information for a follow-up with Dr. Mckeon Hematology-Oncology Will continue to monitor patient's white blood cell count and blood culture patient will receive a home oxygen eval before discharge we also discussed the important of him
--- NOTE | 2022-07-24 09:43 | WPDPN ---
Progress Note: A&P Assessment and Plan (1) Pneumonia: Code(s): J18.9 - Pneumonia, unspecified organism Status: Acute Assessment and Plan: imaging indicate pneumonia patient febrile, tachycardia, tachypnea and leukocytosis wbc's 33.0>26.6>20.7>22.6>18.2 patient received azithromycin Rocephin in the ED currently taking Rocephin and vancomycin azithromycin DC due to prolonged QT continue albuterol and Symbicort blood culture preliminary no growth (2) Sepsis: Code(s): A41.9 - Sepsis, unspecified organism Status: Acute Assessment and Plan: possibly secondary to pneumonia blood culture is negative but unsure if patient received antibiotics before collection of blood culture as evidenced by febrile, tachycardia, tachypnea and leukocytosis wbc's 33.0>26.6>22.6>18.2 patient received azithromycin Rocephin in the ED currently taking Rocephin and vancomycin azithromycin DC due to prolonged QT (3) Acute exacerbation of chronic obstructive airways disease: Code(s): J44.1 - Chronic obstructive pulmonary disease with (acute) exacerbation Status: Acute Assessment and Plan: stable worsened with pneumonia patient received azithromycin Rocephin in the ED currently taking Rocephin and vancomycin azithromycin DC due to prolonged QT cont Symbicort patient will more than likely need home to evaluation WBC in a.m. will trend blood culture preliminary no growth (4) Pleurisy with effusion: Code(s): J90 - Pleural effusion, not elsewhere classified Status: Acute Assessment and Plan: imaging indicates along the anterior lower mediastinum and mild posterior lateral right pleural effusion patient will need to follow up with oncologist or primary care physician on discharge patient given Lasix in ED (5) Lung nodule, multiple: Code(s): R91.8 - Other nonspecific abnormal finding of lung field Status: Acute Assessment and Plan: imaging indicate At least 2 right lower lobe masses, measuring 18 mm in the right infrahilar area, 13 mm in the posterior medial right lower lobe. Primary pulmonary malignancy metastatic deposits patient will need to follow-up with oncology (6) Depression with anxiety: Code(s): F41.8 - Other specified anxiety disorders Status: Acute Assessment and Plan: continue home medication (7) Chronic back pain: Code(s): M54.9 - Dorsalgia, unspecified; G89.29 - Other chronic pain Status: Acute Assessment and Plan: continue pain medication (8) Elevated d-dimer: Code(s): R79.89 - Other specified abnormal findings of blood chemistry Status: Acute Assessment and Plan: elevated D-dimer CTA no PE noted Subjective Date/time seen: 07/24/22 09:43 Interval history: patient notes that his condition has improved. patient notes that his pain is well controlled he still continues to have left side pain with improvement. The patient denies CP, palpitation, extremity numbness, lightheadedness, dizziness, constipation, diarrhea, chills, or fever. patient anxious to discharge his white count is trending down worse could possibly discharge in the a.m. he will more than likely need a home to evaluation he will be set up in given information for a follow-up with Dr. Mckeon Hematology-Oncology Will continue to monitor patient's white blood cell count and blood culture patient will receive a home oxygen eval before discharge we also discussed the important of him following up with an oncologist. Review of Systems Review of Systems: All systems reviewed & are unremarkable except as noted in HPI and below Exam Narrative: GENERAL: frail appears malnutrition, in no apparent distress. HEAD: normocephalic, atraumatic. EYES: PERRL. Sclera clear/white. Vision is grossly intact. EARS: External ears normal, auditory canals clear and without drainage, TMs
[2022-07-24 12:15] LABS: Reflex Lactic Acid Yes or No Add Lactic
[2022-07-24 13:01] LABS: Lactic Acid 1.8 mmol/L (0.4-2.0)
[2022-07-24 16:00] VITALS: BP 132/80; PULSE 82; TEMP 36.7; O2SAT 91
[2022-07-24] MEDS: ALBUTEROL SULFATE (*SP) INHALER 2 PUFF INHALATION (16:17)
[2022-07-24 19:40] VITALS: PULSE 82; O2SAT 90
[2022-07-24] MEDS: traZODone HCL 50 MG TABLET 100 MG PO (20:27)
[2022-07-24] MEDS: DOXYCYCLINE HYCLATE 100 MG TABLET PO (20:27)
[2022-07-24] MEDS: CEFDINIR 300 MG CAPSULE PO (20:27)
[2022-07-25] VITALS: BP 142/62; PULSE 81; RESP 20; TEMP 36.9; O2SAT 92
--- NOTE | 2022-07-25 05:10 | PC.NURSE ---
Lab called to report a critical Hgb of 6.8.
[2022-07-25 05:15] LABS: Hematocrit 21.2 % (37.0-46.0); Mean Corpuscular HGB Conc 32.1 g/dL (32.0-36.0); Mean Corpuscular Hemoglobin 33.2 pg (27.0-31.0); Mean Corpuscular Volume 103.4 fL (78.0-102.0); Mean Platelet Volume 9.7 fl (8.7-11.0); Platelet Count Result 300 K/mm3 (150-420); Red Blood Count 2.05 M/mm3 (4.70-6.10); Red Cell Distribution Width 13.5 % (11.6-14.4); White Blood Count 18.8 K/mm3 (4.8-10.8)
[2022-07-25 05:18] LABS: Hemoglobin 6.8 g/dL (12.4-15.3)
[2022-07-25] MEDS: HYDROcodone/acetaminophen (*CRX) 10-325 MG TABLET 1 TAB PO (05:18)
[2022-07-25 05:33] LABS: Alanine Aminotransferase 29 U/L (16-63); Albumin Level 1.5 g/dL (3.4-5.0); Alkaline Phosphatase 68 U/L (46-116); Anion Gap 7 mmol/L (8-16); Aspartate Amino Transferase 20 U/L (15-37); Bilirubin,Total 0.3 mg/dL (0.00-1.00); Blood Urea Nitrogen 17 mg/dL (7-18); Calcium 8.2 mg/dL (8.5-10.1); Carbon Dioxide 29 mmol/L (21-32); Chloride 106 mmol/L (98-108); Estimated CRCL calculation 67 ml/min; Estimated Glomerular Filt Rate > 60; Glucose 89 mg/dL (70-99); Osmolality Calculated 294 mOsm/kg (285-295); Potassium 3.9 mmol/L (3.5-5.1); Sodium 142 mmol/L (136-145); Total Protein 5.8 g/dL (6.4-8.2)
--- NOTE | 2022-07-25 06:07 | PC.NURSE ---
Hgb results reported to Xochitl Chavarria NP; New orders received and noted.
--- NOTE | 2022-07-25 06:21 | PC.NURSE ---
Discussed need for possible transfusion as Hemoglobin is low. Patient verbalizes understanding and permit signed. Explained need for CT, patient agreeable to same.
[2022-07-25] MEDS: BUDESONIDE/FORMOTEROL (*SP) 160-4.5 MCG 6 GM INH 2 PUFF INHALATION (06:25)
[2022-07-25 08:00] VITALS: BP 128/64; PULSE 64; RESP 16; RESP 18; TEMP 36.4; O2SAT 92
[2022-07-25] MEDS: NICOTINE (*PBKC) 21 MG PATCH 1 PATCH TRANSDERM (08:28)
[2022-07-25] MEDS: guaiFENesin 12 HR 600 MG TABCR 1200 MG PO (08:30)
[2022-07-25] MEDS: MORPHINE SULFATE (*CRX) 30 MG TABCR PO (08:30)
[2022-07-25] MEDS: CEFDINIR 300 MG CAPSULE PO (08:30)
[2022-07-25] MEDS: GABAPENTIN 100 MG CAPSULE PO (08:30)
[2022-07-25] MEDS: FLUoxetine HCL 20 MG CAPSULE 60 MG PO (08:31)
[2022-07-25] MEDS: DOXYCYCLINE HYCLATE 100 MG TABLET PO (08:31)
[2022-07-25] MEDS: ENOXAPARIN 40 MG/0.4 ML SYRINGE SUB-Q (08:32)
[2022-07-25] MEDS: FLUTICASONE PROPIONATE 0.05% NA SPR 16 GM BTL (*BKC) 1 SPRAY NASAL (08:32)
--- NOTE | 2022-07-25 08:51 | P.PNCROSS_ITS ---
Event Note Event Note Event Note: Called and spoke with Dr. Simmons who is Pulmonology who felt like patient rhoda ds to be transferred to another facility as he more than likely needs a procedure and they do not do this procedures as it looks like he may have empyema.
--- NOTE | 2022-07-25 09:38 | P.DS_ITS ---
DS: Admitting Diagnosis Discharge Date 07/25/2022 Admitting Diagnosis pneumonia , lung mass DS: Discharge Diagnosis Discharge Diagnosis (1) Pneumonia: Code(s): J18.9 - Pneumonia, unspecified organism Status: Acute Assessment and Plan: * imaging indicate pneumonia * patient febrile, tachycardia, tachypnea and leukocytosis * wbc's 33.0>26.6>20.7>22.6>18.2 * patient received azithromycin Rocephin in the ED currently taking Rocephin and vancomycin azithromycin DC due to prolonged QT * continue albuterol and Symbicort * blood culture preliminary no growth (2) Sepsis: Code(s): A41.9 - Sepsis, unspecified organism Status: Acute Assessment and Plan: * possibly secondary to pneumonia blood culture is negative but unsure if patient received antibiotics before collection of blood culture * as evidenced by febrile, tachycardia, tachypnea and leukocytosis * wbc's 33.0>26.6>22.6>18.2 * patient received azithromycin Rocephin in the ED currently taking Rocephin and vancomycin azithromycin DC due to prolonged QT * (3) Acute exacerbation of chronic obstructive airways disease: Code(s): J44.1 - Chronic obstructive pulmonary disease with (acute) exacerbation Status: Acute Assessment and Plan: * stable * worsened with pneumonia * patient received azithromycin Rocephin in the ED currently taking Rocephin and vancomycin azithromycin DC due to prolonged QT * cont Symbicort * patient will more than likely need home to evaluation * WBC in a.m. will trend * blood culture preliminary no growth (4) Pleurisy with effusion: Code(s): J90 - Pleural effusion, not elsewhere classified Status: Acute Assessment and Plan: * imaging indicates along the anterior lower mediastinum and mild posterior lateral right pleural effusion * patient will need to follow up with oncologist or primary care physician on discharge * patient given Lasix in ED * Right inoculated pleural effusion left pleural efusion may be (5) Lung nodule, multiple: Code(s): R91.8 - Other nonspecific abnormal finding of lung field Status: Acute Assessment and Plan: * imaging indicate At least 2 right lower lobe masses, measuring 18 mm in the right infrahilar area, 13 mm in the posterior medial right lower lobe. Primary pulmonary malignancy metastatic deposits * patient will need to follow-up with oncology * inoculated Pleural effusion right lobe * Transferred to [facility] (6) Depression with anxiety: Code(s): F41.8 - Other specified anxiety disorders Status: Acute Assessment and Plan: * continue home medication (7) Chronic back pain: Code(s): M54.9 - Dorsalgia, unspecified; G89.29 - Other chronic pain Status: Acute Assessment and Plan: * continue pain medication (8) Elevated d-dimer: Code(s): R79.89 - Other specified abnormal findings of blood chemistry Status: Acute Assessment and Plan: * elevated D-dimer * CTA no PE noted Plan Transfer to [facility] DS: Summary Hospital Course Reason for hospitalization: Pneumonia, mass noted in lungs, Encoulated pleural effusion right lung Hospital Course: This is a 67 year old male that was admitted for pneumonia, and incidental finding of lung mass was treated with IV antibiotic, IV Steroids, IVF currently anemic and in need for blood. This morning CT scan showing the inoculated Pleural effusion and I spoke with DR. Simmons who recommended that kathy
--- NOTE | 2022-07-25 09:38 | PM.DS ---
DS: Admitting Diagnosis Discharge Date 07/25/2022 Admitting Diagnosis pneumonia , lung mass DS: Discharge Diagnosis Discharge Diagnosis (1) Pneumonia: Code(s): J18.9 - Pneumonia, unspecified organism Status: Acute Assessment and Plan: imaging indicate pneumonia patient febrile, tachycardia, tachypnea and leukocytosis wbc's 33.0>26.6>20.7>22.6>18.2 patient received azithromycin Rocephin in the ED currently taking Rocephin and vancomycin azithromycin DC due to prolonged QT continue albuterol and Symbicort blood culture preliminary no growth (2) Sepsis: Code(s): A41.9 - Sepsis, unspecified organism Status: Acute Assessment and Plan: possibly secondary to pneumonia blood culture is negative but unsure if patient received antibiotics before collection of blood culture as evidenced by febrile, tachycardia, tachypnea and leukocytosis wbc's 33.0>26.6>22.6>18.2 patient received azithromycin Rocephin in the ED currently taking Rocephin and vancomycin azithromycin DC due to prolonged QT (3) Acute exacerbation of chronic obstructive airways disease: Code(s): J44.1 - Chronic obstructive pulmonary disease with (acute) exacerbation Status: Acute Assessment and Plan: stable worsened with pneumonia patient received azithromycin Rocephin in the ED currently taking Rocephin and vancomycin azithromycin DC due to prolonged QT cont Symbicort patient will more than likely need home to evaluation WBC in a.m. will trend blood culture preliminary no growth (4) Pleurisy with effusion: Code(s): J90 - Pleural effusion, not elsewhere classified Status: Acute Assessment and Plan: imaging indicates along the anterior lower mediastinum and mild posterior lateral right pleural effusion patient will need to follow up with oncologist or primary care physician on discharge patient given Lasix in ED Right inoculated pleural effusion left pleural efusion may be (5) Lung nodule, multiple: Code(s): R91.8 - Other nonspecific abnormal finding of lung field Status: Acute Assessment and Plan: imaging indicate At least 2 right lower lobe masses, measuring 18 mm in the right infrahilar area, 13 mm in the posterior medial right lower lobe. Primary pulmonary malignancy metastatic deposits patient will need to follow-up with oncology inoculated Pleural effusion right lobe Transferred to [facility] IM (6) Depression with anxiety: Code(s): F41.8 - Other specified anxiety disorders Status: Acute Assessment and Plan: continue home medication (7) Chronic back pain: Code(s): M54.9 - Dorsalgia, unspecified; G89.29 - Other chronic pain Status: Acute Assessment and Plan: continue pain medication (8) Elevated d-dimer: Code(s): R79.89 - Other specified abnormal findings of blood chemistry Status: Acute Assessment and Plan: elevated D-dimer CTA no PE noted Plan Transfer to [facility] DS: Summary Hospital Course Reason for hospitalization: Pneumonia, mass noted in lungs, Encoulated pleural effusion right lung Hospital Course: This is a 67 year old male that was admitted for pneumonia, and incidental finding of lung mass was treated with IV antibiotic, IV Steroids, IVF currently anemic and in need for blood. This morning CT scan showing the inoculated Pleural effusion and I spoke with DR. Simmons who recommended that patient be transferred to higher level of care due to he may need to have his inoculation drained. Patient is not able to go to [facility] as they are not able to handle that procedure but [place] Dr. Plaza has accepted to [facility] Patient labs are still not within normal limits with WBC at 18.8 HGB 6.8 , plt 300 NA 142, Potassium 3.9. Patient is still requiring 4l of oxygen per nasal canal and he denies any pain at this time. Patient inf
[2022-07-25] MEDS: LORazepam (*CRX) 0.5 MG TABLET PO (09:46)
--- NOTE | 2022-07-25 09:47 | PC.NURSE ---
Patient having anxiety regarding results of cat scan and possibility of transfer
--- NOTE | 2022-07-25 11:19 | PC.NURSE ---
Face sheet faxed to [facility]
--- NOTE | 2022-07-25 11:43 | PC.NURSE ---
[facility] has bed for patient. He will be admitted to room 724. Admitting physician is Dr. Plaza. Report given to Corie at [facility] in [place]
--- NOTE | 2022-07-25 11:47 | PC.NURSE ---
Message left with significant other with transfer information
[2022-07-25 12:15] VITALS: O2SAT 93
--- NOTE | 2022-07-25 12:23 | PC.NURSE ---
Transfer to [facility] via [facility], patient alert and oriented and agreeable to transfer, report to EMS, all personal items returned to patient
== END 2022-07-25 12:15 | disposition short-term general hospital (02) | DRG 871 ==
LOC: CHSED 20:48 → CHS2ND 21:01
PROVIDERS: Nurse Practitioner; Admitting Provider Internal Medicine; Emergency Provider Emergency Medicine; PCP Family Medicine; Visit Provider Internal Medicine
DX: Z20.822 Contact with and (suspected) exposure to COVID-19 (principal); A41.9 Sepsis, unspecified organism; J18.9 Pneumonia, unspecified organism; M19.90 Unspecified osteoarthritis, unspecified site; J44.0 Chronic obstructive pulmonary disease with (acute) lower respiratory infection; J44.1 Chronic obstructive pulmonary disease with (acute) exacerbation; J90 Pleural effusion, not elsewhere classified; I10 Essential (primary) hypertension; D64.9 Anemia, unspecified; M81.0 Age-related osteoporosis without current pathological fracture; F17.210 Nicotine dependence, cigarettes, uncomplicated; M54.9 Dorsalgia, unspecified; G89.29 Other chronic pain; G25.81 Restless legs syndrome; R91.8 Other nonspecific abnormal finding of lung field; R94.31 Abnormal electrocardiogram [ECG] [EKG]; R79.1 Abnormal coagulation profile; F32.A Depression, unspecified; F41.9 Anxiety disorder, unspecified; Z87.891 Personal history of nicotine dependence
CPT/HCPCS: 36415; 36600; 71250; 71275; 74176; 80053; 80202; 81001; 82805; 83605; 83735; 84484; 85025; 85027; 85380; 86850; 86900; 86901; 86920; 87040; 87502; 87651; 93005; 94640; 96361; 96365; 96375; 99285; A9270; J0696; J0780; J1650; J1940; J2270; J2405; J2920; J2930; J3370; J7030; J7040; J7042; J8540; Q9967; U0003; U0005

== ENCOUNTER 2022-08-15 11:02 | Outpatient (CLI) | payer MEDICARE, SELFPAY ==
--- NOTE | ~2022-08-15 | XR_ITS ---
Clinical Indication: Pneumonia PA and lateral views of the chest: Comparison: 04/29/2020 Findings: Small right pleural effusion present, with mild right basilar haziness. Left lung is essent ially clear. Cardiomediastinal silhouette is within normal limits. Bones and soft tissues are unremar kable. Impression: Small right pleural effusion. Mild right lower lobe pulmonary edema/atelectasis versus possibly pneumonia. Correlate clinically. Reviewed, dictated and finalized at location [] NT SUPPORT ANALYST Impression: Small right pleural effusion. Mild right lower lobe pulmonary edema/atelectasis versus possibly pneumonia. Co rrelate clinically.
== END 2022-08-15 11:03 | disposition home or self-care (01) ==
LOC: CHSIMG 11:04
PROVIDERS: PCP Family Medicine; Visit Provider Family Medicine
DX: J18.9 Pneumonia, unspecified organism (principal)
CPT/HCPCS: 71046

== ENCOUNTER 2023-06-04 10:18 | Outpatient (CLI) | payer MEDICARE, SELFPAY ==
--- NOTE | ~2023-06-04 | XR_ITS ---
EXAMINATION: XR lumbar spine min 4V DATE: 06/04/2023 10:49 INDICATION: Dorsalgia. Severe back pain radiating down both legs. TECHNIQUE: 6 views of lumbar spine including flexion and extension views were obtained. COMPARISON: Lumbar spine radiographs 02/05/2022, CT abdomen and pelvis 07/25/2022 FINDINGS: There is 11 degrees levoscoliosis of lumbar spine. There is a chronic compression fracture of L3 with 3/5 loss of height anteriorly and focal kyphosis. There is 5 mm retrolisthesis of L4 on L5 . There are changes of posterior fusion procedure at L3-L4 with pedicle screws. The L3 screws extend beyond the superior margin of the endplate. There is no abnormal motion with flexion and extension. T here is moderately decreased disc height at L2-L3, mildly decreased disc height at L3-L4 and L4-L5, a nd severely decreased disc height at L5-S1. IMPRESSION: 1. Severe lower lumbar spondylosis. 2. Posterior fusion procedure at L3-L4. 3. Lumbar levoscoliosis. Reviewed, dictated and finalized at location E.
== END 2023-06-04 10:19 | disposition home or self-care (01) ==
PROVIDERS: PCP Family Medicine; Visit Provider Nurse Practitioner Adult Health
DX: G89.29 Other chronic pain (principal); M54.9 Dorsalgia, unspecified; M43.06 Spondylolysis, lumbar region; Z98.1 Arthrodesis status; M41.86 Other forms of scoliosis, lumbar region
CPT/HCPCS: 72110

== ENCOUNTER 2023-11-22 13:38 | Outpatient (CLI) | payer MEDICARE, SELFPAY ==
--- NOTE | ~2023-11-22 | XR_ITS ---
XR thoracic spine 3V DATE: 11/22/2023 14:03 INDICATION: Cervical and thoracic radiculopathy TECHNIQUE: AP and lateral and swimmer views COMPARISON: None FINDINGS: There is diffuse osteopenia. There is mild thoracic dextroscoliosis. No fracture or dislocation or bone destruction is evident. No paraspinal soft tissue thickening. Lumbar posterior surgical fusion IMPRESSION: Osteopenia Dextroscoliosis Posterior lumbar surgical fusion Reviewed, dictated and finalized at location B.
--- NOTE | ~2023-11-22 | XR_ITS ---
XR_CERV2-3V_CR DATE: 11/22/2023 14:03 INDICATION: Cervical and thoracic radiculopathy TECHNIQUE: AP, lateral, open-mouth views COMPARISON: 02/05/2022 cervical spine FINDINGS: Osteopenia. There is levoscoliosis of the cervical and upper thoracic spine. C1 and C2 are normally aligned and the odontoid process is intact. No fracture or dislocation or locked facet or prevertebral soft tissue swelling is evident. Mild degenerative disc disease and anterior spurring at C4-5. Moderately prominent degenerative disc disease at C5-6 and C6-7. IMPRESSION: Osteopenia Levoscoliosis Moderate cervical spondylosis Reviewed, dictated and finalized at Location A. Reviewed, dictated and finalized at location B.
== END 2023-11-22 13:39 | disposition home or self-care (01) ==
LOC: CHSIMG 13:41
PROVIDERS: PCP Family Medicine; Visit Provider Pain Medicine Interventional Pain Medicine
DX: M54.14 Radiculopathy, thoracic region (principal); M54.12 Radiculopathy, cervical region; M85.88 Other specified disorders of bone density and structure, other site; Z98.1 Arthrodesis status; M41.84 Other forms of scoliosis, thoracic region; M43.02 Spondylolysis, cervical region
CPT/HCPCS: 72040; 72072

== ENCOUNTER 2024-02-05 10:49 | Outpatient (CLI) | payer MEDICARE, SELFPAY ==
[2024-02-05 11:21] LABS: Basophils Absolute Auto 0.04 K/mm3 (0.00-0.10); Basophils Percent Auto 0.4 % (0.0-1.0); Hematocrit 44.6 % (37.0-46.0); Hemoglobin 14.8 g/dL (12.4-15.3); Immature Granulocyte Absolute 0.04 K/mm3 (0.00-0.00); Immature Granulocyte Percent A 0.4 % (0.0-0.0); Lymphocytes Absolute Auto 2.31 K/mm3 (1.10-4.50); Mean Corpuscular HGB Conc 33.2 g/dL (32-36); Mean Corpuscular Hemoglobin 33.6 pg (27.0-31.0); Mean Corpuscular Volume 101.4 fL (78.0-102.0); Mean Platelet Volume 10.2 fl (8.7-11.0); Monocytes Absolute Auto 0.59 K/mm3 (0.10-0.90); Monocytes Percent Auto 6.1 % (2.0-11.0); Neutrophils Absolute Auto 6.54 K/mm3 (1.70-7.20); Neutrophils Percent Auto 68.1 % (50.0-70.0); Platelet Count Result 199 K/mm3 (150-420); Red Cell Distribution Width 13.1 % (11.6-14.4); White Blood Count 9.6 K/mm3 (4.8-10.8)
[2024-02-05 11:34] LABS: INR 0.9; Prothrombin Time 10.4 Seconds (9.50-12.1)
[2024-02-05 12:01] LABS: Alanine Aminotransferase 24 U/L (16-63); Albumin Level 3.7 g/dL (3.4-5.0); Alkaline Phosphatase 75 U/L (46-116); Anion Gap 9 mmol/L (4-12); Aspartate Amino Transferase 17 U/L (15-37); Bilirubin,Total 0.3 mg/dL (0.00-1.00); Blood Urea Nitrogen 17 mg/dL (7-18); Calcium 8.8 mg/dL (8.5-10.1); Carbon Dioxide 26 mmol/L (21-32); Chloride 102 mmol/L (98-108); Cholesterol 177 mg/dL (0-200); Estimated Glomerular Filt Rate > 60; Glucose 87 mg/dL (70-99); HDL Direct 38 mg/dL (40-60); LDL Cholesterol Calculated 115 mg/dL (<130); Osmolality Calculated 284 mOsm/kg (285-295); Potassium 4.4 mmol/L (3.5-5.1); Sodium 137 mmol/L (136-145); Total Protein 7.1 g/dL (6.4-8.2); Triglycerides 119 mg/dL (0-150)
[2024-02-05 12:26] LABS: Free T4 Free Thyroxine Reflex 0.77 ng/dL (0.76-1.46)
== END 2024-02-05 10:50 | disposition home or self-care (01) ==
LOC: CHSLAB 10:51
PROVIDERS: PCP Family Medicine; Visit Provider Family Medicine
DX: R79.89 Other specified abnormal findings of blood chemistry (principal); E03.9 Hypothyroidism, unspecified; M54.9 Dorsalgia, unspecified; G89.29 Other chronic pain; F41.8 Other specified anxiety disorders; D69.9 Hemorrhagic condition, unspecified
CPT/HCPCS: 36415; 80053; 80061; 84439; 84443; 85025; 85610

== ENCOUNTER 2024-02-07 13:48 | Outpatient (CLI) | payer MEDICARE, SELFPAY ==
--- NOTE | ~2024-02-07 | CT_ITS ---
CT Scan of the Chest without Contrast: Clinical Indication: Lung cancer screening, nicotine dependence Technique: Contiguous sections were acquired throughout the chest without intravenous contrast. Dose reduction technique was used on this scan by utilizing automated exposure control and iterative recon struction technique. The dose-length product (DLP) was 126.40 mGy-cm. COMPARISON: 07/21/2022 Findings: There is no evidence of any significant mediastinal, hilar or axillary lymphadenopathy. There are ath erosclerotic calcifications of the aorta and coronary arteries. Moderate hiatal hernia present. There is no evidence of pleural or pericardial effusion. Calcified right upper lobe granuloma noted. No other pulmonary nodule seen. Mild emphysema. Images through the upper abdomen reveal no abnormalities. Impression: Lung RADS 2: Benign appearance. 12 month follow-up screening CT advised. Reviewed, dictated and finalized at [facility]. Impression: Lung RADS 2: Benign appearance. 12 month follow-up screening CT advised.
== END 2024-02-07 13:49 | disposition home or self-care (01) ==
LOC: CHSIMG 13:49
PROVIDERS: PCP Family Medicine; Visit Provider Family Medicine
DX: Z12.2 Encounter for screening for malignant neoplasm of respiratory organs (principal); Z87.891 Personal history of nicotine dependence
CPT/HCPCS: 71271

== ENCOUNTER 2024-05-07 02:48 | Day surgery (SDC) | payer MEDICARE, SELFPAY ==
[2024-04-13 08:42] VITALS: BMI 25.7
--- NOTE | 2024-05-05 10:50 | PC.NURSE ---
Patient had requested to be called and check on him to see if he was feeling better after having symptoms of a cold last week. Pt states he is no longer sick and plans to proceed with EGD/COLON ON 05/07/2024. Denies any changes in medications or health.
[2024-05-07] VITALS (11 sets, daily range): BP systolic 70–120; BP diastolic 35–83; PULSE 62–88; RESP 15–21; TEMP 36.4; O2SAT 95–100
[2024-05-07] MEDS: LACTATED RINGERS 1,000 ML 150 ML IV CONT ×2 (11:54→13:53)
--- NOTE | 2024-05-07 12:51 | WPDANESEPPF ---
Anes - Initial Pre Proc Eval Procedure: Operation Date: 05/07/24 14:00 Proposed Procedures p Esophagogastroduodenoscopy&Screen Colon - Chadwick Moeller MD Date/Time: 05/07/24 12:51 Surgeon: Chadwick Moeller MD Pre Op Diagnosis: Dysphagia, Neoplasm screening colon/rectum Patient Data Age: 69 Gender: M Height: 1.63 m Weight: 67.2 kg Last Vital Signs Temp 97.6 F 05/07/24 11:40 Pulse 88 05/07/24 11:40 Resp 18 05/07/24 11:40 BP 108/83 05/07/24 11:40 Pulse Ox 97 05/07/24 11:40 O2 Del Method Room Air 05/07/24 11:40 Allergies Allergy/AdvReac Type Severity Reaction Status Date / Time NSAIDS (Non-Steroidal AdvReac Mild Abdominal Verified 05/07/24 11:39 Anti-Inflamma Pain ibuprofen AdvReac Sick Verified 05/07/24 11:39 feeling prednisone AdvReac Sick Verified 05/07/24 11:39 feeling Home Medications Medication Instructions Recorded Confirmed Type cyclobenzaprine 10 mg tablet 10 mg PO BID PRN Back Pain 05/30/22 05/07/24 History duloxetine 60 mg capsule,delayed 60 mg PO DAILY #90 caps 02/05/24 05/07/24 Rx release gabapentin 300 mg capsule 300 mg PO BID 02/05/24 05/07/24 History morphine 30 mg immediate release 30 mg PO Q8H PRN Pain 02/05/24 05/07/24 History tablet lisinopril 20 mg tablet 20 mg PO DAILY #90 tabs 02/19/24 05/07/24 Rx pantoprazole 40 mg tablet,delayed 40 mg PO QAM #30 tabs 03/17/24 05/07/24 Rx release acetaminophen 300 mg-codeine 60 mg 1 tablet PO TID PRN Pain 04/13/24 05/07/24 History tablet levothyroxine 50 mcg tablet See Rx Instructions .Route 05/05/24 05/07/24 Rx .COMPLEX #90 tabs trazodone 100 mg tablet See Rx Instructions .Route 05/05/24 05/07/24 Rx .COMPLEX #90 tabs Patient hx anesthesia problems: none Family hx anesthesia problems: none Results Review: All pre-operative results and documents have been reviewed as part of the pre-operative evaluation. [facility] Past Medical History Medical History Anxiety and depression Arthritis Bleeding disorder Cancer Chronic back pain Headache Hepatitis Hypertension Lumbar spondylosis Osteoporosis Pericardial effusion Pneumonia Restless leg syndrome Surgical History Surgical History Previous back surgery Status post lumbar surgery Family History Family History Mother Cancer Diabetes mellitus Sibling Cancer Social History Social History Smoking packs per day: 0.25 Smoking cigarettes per day: 5.0 Years smoked: 53 Smoking pack-years: 13.25 Smoking status: Current every day smoker Tobacco type: cigarettes Smoking end date: 07/09/22 Alcohol intake: former Substance use: current Substance use type: does not use Lack of Transportation: No Lack of Food: Sometimes True Current Housing: I Have Housing Concerned About Future Housing: No Difficulty Paying Gas/Electric Bills: No Difficulty Paying for Meds: No Currently Unemployed: No Education: High School Diploma/GED Difficulty w/ Childcare or Family Care: No Living arrangements: with family Spiritual care concerns: No Anes - Eval Final PreProcedure Day of Procedure 05/07/24 12:51 Patient weight: normal Heart: regular rate and rhythm Lungs: clear to auscultation Airway: Mallampati scale class II Neurological: alert and oriented Last oral intake: >/= 8 hours ASA classification: III Emergent: no Anesthetic plan: proceed Anesthesia type and monitoring: general GIVS and standard monitoring Results Review: All pre-operative results and documents have been reviewed as part of the pre-operative evaluation. Informed Consent: The patient's anesthetic plan and its attendant risks and benefits were discussed with the patient/family/POA. Questions were jim
--- NOTE | 2024-05-07 13:14 | PM.HPGS ---
History of Present Illness History of Present Illness Consent: Risks, benefits, and alternatives have been discussed and questions answered. Patient agrees to proceed with procedure. Chief complaint: Dysphagia, Neoplasm screening colon/rectum Narrative: Ray Ashley is a 69 year old male here for screening colonoscopy and egd, h/o swallowing difficulty started a year ago and has progressively worsened over the past few months, ppi only some relief, never had egd. Review of Systems Review of Systems: All systems reviewed & are unremarkable except as noted in HPI and below PMFSH Past Medical History Medical History Anxiety and depression Arthritis Bleeding disorder Cancer Chronic back pain Headache Hepatitis Hypertension Lumbar spondylosis Osteoporosis Pericardial effusion Pneumonia Restless leg syndrome Surgical History Surgical History Previous back surgery Status post lumbar surgery Family History Family History Mother Cancer Diabetes mellitus Sibling Cancer Social History Social History Smoking packs per day: 0.25 Smoking cigarettes per day: 5.0 Years smoked: 53 Smoking pack-years: 13.25 Smoking status: Current every day smoker Tobacco type: cigarettes Smoking end date: 07/09/22 Alcohol intake: former Substance use: current Substance use type: does not use Lack of Transportation: No Lack of Food: Sometimes True Current Housing: I Have Housing Concerned About Future Housing: No Difficulty Paying Gas/Electric Bills: No Difficulty Paying for Meds: No Currently Unemployed: No Education: High School Diploma/GED Difficulty w/ Childcare or Family Care: No Living arrangements: with family Spiritual care concerns: No Meds Home Medications and Allergies Home Medications Medication Instructions Recorded Confirmed Type cyclobenzaprine 10 mg tablet 10 mg PO BID PRN Back Pain 05/30/22 05/07/24 History duloxetine 60 mg capsule,delayed 60 mg PO DAILY #90 caps 02/05/24 05/07/24 Rx release gabapentin 300 mg capsule 300 mg PO BID 02/05/24 05/07/24 History morphine 30 mg immediate release 30 mg PO Q8H PRN Pain 02/05/24 05/07/24 History tablet lisinopril 20 mg tablet 20 mg PO DAILY #90 tabs 02/19/24 05/07/24 Rx pantoprazole 40 mg tablet,delayed 40 mg PO QAM #30 tabs 03/17/24 05/07/24 Rx release acetaminophen 300 mg-codeine 60 mg 1 tablet PO TID PRN Pain 04/13/24 05/07/24 History tablet levothyroxine 50 mcg tablet See Rx Instructions .Route 05/05/24 05/07/24 Rx .COMPLEX #90 tabs trazodone 100 mg tablet See Rx Instructions .Route 05/05/24 05/07/24 Rx .COMPLEX #90 tabs Allergies Allergy/AdvReac Type Severity Reaction Status Date / Time NSAIDS (Non-Steroidal AdvReac Mild Abdominal Verified 05/07/24 11:39 Anti-Inflamma Pain ibuprofen AdvReac Sick Verified 05/07/24 11:39 feeling prednisone AdvReac Sick Verified 05/07/24 11:39 feeling Vital Signs Vital Signs - 24 hr 05/07/24 11:40 Temperature 97.6 F Pulse Rate 88 Respiratory Rate 18 Blood Pressure 108/83 Pulse Oximetry 97 Oxygen Delivery Room Air Exam Const: General: comfortable and no acute distress HENMT: Face/Nose/Sinus: Normal nares present Eyes: General: appearance normal, both eyes and all related structures Neck: Neck: no JVD Resp: Auscultation: clear to auscultation bilaterally Cardio: Rate: regular rate Rhythm: regular rhythm GI: Inspection: non-distended GI Palp: Yes Soft to palpation Skin: General skin exam: normal color Neuro: General: gait normal Speech: normal speech Extrem: General: normal to inspection Psych: Mental Status: mental status grossly normal Assessment and Plan Assessment and plan (1) Dysphagia: Q
--- NOTE | 2024-05-07 13:45 | SUR.OPER ---
EGD START 1319, END 1324 COLONOSCOPY START 1330, END 1349
== END 2024-05-07 14:57 | disposition home or self-care (01) ==
PROVIDERS: PCP Family Medicine; Referring Provider Nurse Practitioner Family; Visit Provider Internal Medicine Gastroenterology
PROC: 0DJ08ZZ Inspection of Upper Intestinal Tract, Via Natural or Artificial Opening Endoscopic (ICD-10-PCS; CPT 43235; principal; 2024-05-07 14:00)
DX: Z12.11 Encounter for screening for malignant neoplasm of colon (principal); K63.5 Polyp of colon; K31.89 Other diseases of stomach and duodenum; K21.00 Gastro-esophageal reflux disease with esophagitis, without bleeding; K22.10 Ulcer of esophagus without bleeding; B37.81 Candidal esophagitis; F41.8 Other specified anxiety disorders; G89.29 Other chronic pain; M54.9 Dorsalgia, unspecified; D68.9 Coagulation defect, unspecified; I10 Essential (primary) hypertension; M43.06 Spondylolysis, lumbar region; M81.0 Age-related osteoporosis without current pathological fracture; G25.81 Restless legs syndrome; F17.210 Nicotine dependence, cigarettes, uncomplicated; Z98.890 Other specified postprocedural states; Z98.1 Arthrodesis status; Z85.9 Personal history of malignant neoplasm, unspecified; Z80.9 Family history of malignant neoplasm, unspecified
CPT/HCPCS: 43239; 45385; 88305; 88312; J2371; J2704; J7120

== ENCOUNTER 2024-07-16 13:46 | Outpatient (CLI) | payer MEDICARE, SELFPAY ==
--- NOTE | ~2024-07-16 | XR_ITS ---
EXAMINATION: XR lumbar spine 2-3V DATE: 07/16/2024 13:58 INDICATION: Lumbar radiculopathy TECHNIQUE: Anteroposterior and lateral views of the lumbar spine, and cone-down lateral view of the l umbosacral junction were obtained. COMPARISON: 06/04/2023 FINDINGS: 13 degrees lumbar levoscoliosis. 6 mm retrolisthesis L4 on L5. Chronic L3 compression fracture with 6 0% anterior vertebral body height loss and associated focal kyphosis. Postoperative change of L3 lami nectomy, partial L4 laminectomy and L3-L4 posterior spinal fusion with bilateral vertical katelin and ped icle screw fixation. Moderate disc height loss at L4-L5 and moderate to severe disc height loss at L2 -L3, L3-L4 and L5-S1. Multilevel mild disc height loss in the more cephalad lumbar and lower thoracic spine. Mild osteoarthritis at the bilateral hip and sacroiliac joints. IMPRESSION: 1. Mild lumbar levoscoliosis with moderate to severe spondylosis. 2. Chronic L3 compression fracture with instrumented L3-L4 posterior spinal fusion. Reviewed, dictated and finalized at location B. L WEIGHER IMPRESSION: 1. Mild lumbar levoscoliosis with moderate to severe spondylosis. 2. Chronic L3 compression fracture with instrumented L3-L4 posterior spinal fus ion.
== END 2024-07-16 13:47 | disposition home or self-care (01) ==
LOC: CHSIMG 13:48
PROVIDERS: PCP Family Medicine; Visit Provider Pain Medicine Interventional Pain Medicine
DX: M54.16 Radiculopathy, lumbar region (principal); M41.86 Other forms of scoliosis, lumbar region; M48.56XA Collapsed vertebra, not elsewhere classified, lumbar region, initial encounter for fracture; Z98.1 Arthrodesis status
CPT/HCPCS: 72100

== ENCOUNTER 2024-08-16 03:13 | Emergency (ER) | payer MEDICARE, SELFPAY ==
[2024-08-16] VITALS (13 sets, daily range): BP systolic 61–155; BP diastolic 43–99; PULSE 65–90; RESP 14–18; TEMP 36.4; O2SAT 95–100
--- NOTE | ~2024-08-16 | CT_ITS ---
Clinical Indication: Status post fall CT Scan of the Chest, Abdomen, and Pelvis with Contrast: Technique: Contiguous sections were acquired throughout the chest, abdomen, and pelvis after intraven ous administration of 100 cc of Omnipaque 350. Dose reduction technique was used on this scan by joe duque automated exposure control and iterative reconstruction technique. The dose-length product (DL P) was 992.14 mGy-cm. Findings: There is no evidence of any significant mediastinal, hilar or axillary lymphadenopathy. Suggestion of extensive wall thickening of the mid to distal esophagus. No aortic aneurysm or dissection seen. No pulmonary embolus seen.. There is no evidence of pleural or pericardial effusion. There is probable bibasilar atelectatic change, versus possibly pneumonia. There is [id number] emphysema in the upper lobes. There are small layering gallstones present. There is central intrahepatic biliary dilatation and dif fuse dilatation of the common bile duct up to 16 mm. Questionable small ampullary mass. The pancreas, adrenals and kidneys are within normal limits. Several hypodense splenic masses are present, largest measuring 1.7 cm, possibly cysts. No evidence of aortic aneurysm. No lymphadenopathy. No bowel obstruction or bowel wall thickening. Extensive stool suggests constipation.. Urinary bladder is unremarkable. No pelvic mass seen. No ascites. Posterior fusion hardware present i n the lumbar spine with underlying compression deformity of L3. Impression: No acute posttraumatic change evident. Bibasilar consolidation could reflect atelectasis versus possibly pneumonia, especially possibly the left lung base. Correlate clinically. Intrahepatic and extra hepatic biliary dilatation with cholelithiasis present. Questionable small amp ullary mass. Recommend pre and postcontrast MR/MRCP. Constipation. Probable wall thickening of the mid to distal esophagus, suggestive of esophagitis. Mild to moderate emphysema. Reviewed, dictated and finalized at [facility]. E MILL OPERATOR Impression: No acute posttraumatic change evident. Bibasilar consolidation could reflect atelectasis versus possibly pneumonia, es pecially possibly the left lung base. Correlate clinically. Intrahepatic and extra hepatic biliary dilatation with cholelithiasis present. Questionable small ampullary mass. Recommend pre and postcontrast MR/MRCP. Constipation. Probable wall thickening of the mid to distal esophagus, suggestive of esophagi tis. Mild to moderate emphysema.
--- NOTE | ~2024-08-16 | XR_ITS ---
AP view of the pelvis Clinical history: Pain Findings: No acute fracture or dislocation is seen. Osseous alignment is anatomic. Bilateral hip and SI joint spaces are preserved. Soft tissues are unremarkable. Impression: No significant abnormality is seen. Reviewed, dictated and finalized at location M. UTIVE TALENT ACQUISITION CONSULTANT Impression: No significant abnormality is seen.
--- NOTE | ~2024-08-16 | XR_ITS ---
Portable chest x-ray Comparison: 08/15/2022 Clinical History: Status post fall Findings: There is bibasilar atelectasis versus minimal pulmonary edema. Cardiomediastinal silhouet te is stable. Bones and soft tissues are unremarkable. Impression: Bibasilar atelectasis versus bibasilar minimal pulmonary edema. Reviewed, dictated and finalized at [facility]. WARE SUPPORT REPRESENTATIVE Impression: Bibasilar atelectasis versus bibasilar minimal pulmonary edema.
--- NOTE | ~2024-08-16 | CT_ITS ---
CT head without contrast Indication: Status post fall Technique: Serial scans were obtained through the brain without the administration of contrast. Dose reduction technique was used on this scan by utilizing automated exposure control and iterative recon struction technique. The dose-length product (DLP) was 1135.00 mGy-cm. Findings: There is no evidence of intracranial hemorrhage, mass lesion, or acute infarct. The ventri cles and subarachnoid spaces are dilated, consistent with mild atrophy. Low attenuation regions are seen within the periventricular white matter bilaterally, likely representing changes from chronic mi crovascular ischemic disease. There is no evidence of edema, mass effect or midline shift. The visu alized paranasal sinuses and mastoid air cells are clear. Impression: No intracranial hemorrhage, mass, or acute infarct. Atrophy and chronic white matter changes, as above. Reviewed, dictated and finalized at location . RITY SUPERVISOR Impression: No intracranial hemorrhage, mass, or acute infarct. Atrophy and chronic white matter changes, as above.
--- NOTE | ~2024-08-16 | CT_ITS ---
Noncontrast CT scan of the cervical spine Technique: Multiple contiguous axial [address] images of the cervical spine were obtained and rec onstructed in 2D sagittal and coronal planes on the acquisition scanner. Dose reduction technique was used on this scan by utilizing automated exposure control, adjustment of the mA and/or kV according to patient size. The dose-length product (DLP) was 236.05 mGy-cm. Clinical History: Pain Findings: No fractures or dislocations. There is advanced degenerative disc narrowing at C5-C6 and C 6-C7. There is bilateral neural foraminal narrowing at C5-C6 and C6-C7. No prevertebral soft tissue s welling. Impression: No fracture or subluxation of the cervical spine. Degenerative change, as above. Reviewed, dictated and finalized at [facility]. ISHER APPRENTICE Impression: No fracture or subluxation of the cervical spine. Degenerative change, as above.
[2024-08-16] MEDS: SODIUM CHLORIDE 0.9% IV 2,000 ML 999 ML IV CONT (03:20)
--- NOTE | 2024-08-16 03:21 | ECG_ITS ---
Test Date: 2024-08-16 03:40:07 Measurements Intervals [place] Rate: 66 P: 46 WI: 190 QRS: 50 QRSD: 108 T: 45 QT: 433 QTc: 455 Interpretive Statements SINUS RHYTHM No previous ECG available for comparison Electronically Signed On 08-16-2024 08:47:19 PHOTO ENGRAVER by Umesh Crowell M.D.
[2024-08-16 03:30] LABS: Basophils Percent Auto 0.2 % (0.2-1.2); Eosinophils Percent Auto 0.3 % (0-4.4); Hematocrit 45.5 % (42.0-52.0); Hemoglobin 15.3 g/dL (14.0-18.0); Immature Granulocyte Absolute 0.09 K/mm3 (0.00-0.031); Immature Granulocyte Percent A 0.6 % (0-0.5); Lymphocytes Absolute Auto 0.93 K/mm3 (0.9-3.2); Lymphocytes Percent Auto 6.6 % (18.3-44.2); Mean Corpuscular HGB Conc 33.6 g/dl (32-36); Mean Corpuscular Hemoglobin 34.6 pg (26-34); Mean Corpuscular Volume 102.9 fl (80-100); Mean Platelet Volume 10.7 fl (7.4-10.4); Monocytes Absolute Auto 1.1 K/mm3 (0.1-0.6); Neutrophils Percent Auto 84.3 % (45.5-73.1); Platelet Count Result 194 k/mm3 (150-375); Red Blood Count 4.42 M/mm3 (4.6-6.20); Red Cell Distribution Width 12.7 % (11.5-14.5); White Blood Count 14.2 K/mm3 (4.5-10.0)
[2024-08-16] MEDS: NOREPINEPHRINE 8 MG/D5W 250 ML 8 MG/250 ML BAG 9.38 MG IV CONT (03:36)
[2024-08-16 03:40] LABS: INR 1.5; Prothrombin Time 18.1 Seconds (11.1-14.7)
[2024-08-16 03:41] LABS: Partial Thromboplastin Time 45.2 Seconds (22.3-36.8)
[2024-08-16 03:54] LABS: Alanine Aminotransferase 51 U/L (6-50); Alkaline Phosphatase 77 U/L (38-126); Anion Gap 16 mmol/L (4-12); Aspartate Amino Transferase 162 U/L (17-59); Bilirubin,Total 0.9 mg/dL (0.2-1.3); Blood Urea Nitrogen 56 mg/dL (9-20); Calcium 8.6 mg/dL (8.4-10.2); Carbon Dioxide 19 mmol/L (22-30); Chloride 101 mmol/L (98-107); Estimated Glomerular Filt Rate 8; Glucose 129 mg/dL (65-110); Potassium 4.6 mmol/L (3.4-5.0); Sodium 136 mmol/L (137-145)
[2024-08-16] MEDS: fentaNYL CITRATE INJ (*CRX) 100 MCG/2 ML VIAL IV PUSH (04:00)
[2024-08-16 04:06] LABS: Influenza A QL RT-PCR Negative (Negative); Influenza B QL RT-PCR Negative (Negative); RSV RNA, RT-PCR Negative (Negative); SARS-CoV-2 RNA PCR Negative (Negative)
--- NOTE | 2024-08-16 05:02 | PC.NURSE ---
At [address] Caballero pushed 200mcg of Phenylephrine. Patient's new blood pressure 56/45. At [address] Caballero pushed 300 mcg of Phenylephrine. Patient's new blood pressure 82/36. At [address] Caballero pushed 200mcg of Phenylephrine. Patient's new blood pressure 80/50. At [address] Caballero pushed 300mcg of Phenylephrine. Patient's new blood pressure 78/55. At [address] Caballero pushed 300mcg of Phenylephrine. Patient's new blood pressure 103/61.
--- NOTE | 2024-08-16 07:19 | ED_ITS ---
HPI - Trauma General Chief Complaint: Trauma Stated Complaint: ALEXANDRA, MULTIPLE FALLS, NOT FEELING WELL, AMS Time Seen by Provider: 08/16/24 03:42 History of Present Illness HPI narrative: This is a 69-year-old male that presents to the emergency department via EMS for concerns of neck pain, headache and fall down 10 stairs. Initial EMS call was to patient's household where he has been altered, not acting appropriately and confused, lethargic since his fall that happened earlier this evening late afternoon. They reported patient's blood pressure was 60 over palpable and he was intermittently responsive but slow. The patient arrives in his immediately made a level 1 trauma activation with his criteria of persistent hypotension and poly trauma. He was brought into room 7 for resuscitation. Two large-bore IVs were established by myself with ultrasound guidance. He was found to be persistently hypotensive and bradycardic with complaints of neck pain, headache and has evidence of trauma with scattered abrasions throughout both arms and legs. He does have difficulty to move his feet and arms although it appears to be somewhat weaker in the upper extremities which makes me suspicious that this could be a cord pathology or cervical pathology given the hypotension and neck pain. Patient denies any chest pain but states that he is having some difficulty breathing. Slow to respond, alert x4 when he is arousable and awake, appears lethargic. Family later arrives to the emergency department provided collateral formation and states that he has fallen several times these past 2 days and most recently fell down 10 steps several hours prior to 911 being called as he was not acting right even after the fall. He is not on any blood reported blood thinner medications. Related Data Home Medications ?Medication ?Instructions ?Recorded ?Confirmed ?Last Taken ?Type cyclobenzaprine 10 mg tablet 10 mg PO BID PRN Back Pain 05/30/22 05/07/24 05/07/24 History gabapentin 300 mg capsule 300 mg PO BID 02/05/24 05/07/24 05/07/24 History morphine 30 mg immediate release 30 mg PO Q8H PRN Pain 02/05/24 05/07/24 05/07/24 History tablet acetaminophen 300 mg-codeine 60 mg 1 tablet PO TID PRN Pain 04/13/24 05/07/24 05/07/24 History tablet Allergies Allergy/AdvReac Type Severity Reaction Status Date / Time NSAIDS (Non-Steroidal AdvReac Mild Abdominal Verified 05/07/24 11:39 Anti-Inflamma Pain ibuprofen AdvReac Sick Verified 05/07/24 11:39 feeling prednisone AdvReac Sick Verified 05/07/24 11:39 feeling Review of Systems 2 Review of Systems: ROS unobtainable: Yes unobtainable due to medical condition and unobtainable due to mental status PMFSH Past Medical History Medical History Bleeding disorder Lumbar spondylosis Pericardial effusion Pneumonia Restless leg syndrome Osteoporosis Hypertension Hepatitis Headache Cancer Arthritis Anxiety and depression Chronic back pain Surgical History Surgical History Status post lumbar surgery Previous back surgery Family History Family History Mother Cancer Diabetes mellitus Sibling Cancer Social History Social History Smoking packs per day: 0.25 Smoking cigarettes per day: 5.0 Years smoked: 53 Smoking pack-years: 13.25 Smoking status: Current every day smoker Tobacco type: cigarettes Smoking end date: 07/09/22 Alcohol intake: former Substance use: current Substance use type: does not use Lack of Transportation: No Lack of Food: Sometimes True Current Housing: I Have Housing Concerned About Future Housing: No Difficulty Paying Gas/Electric Bills: No Difficulty Paying for Meds: No Currently Unemployed: No Education: High School Diploma/GED Difficulty w/ Childcare or Family Care: No Living arrangements: with family Spiritual care concerns: No Exam 2 Narrative: GENERAL: Ill-appearing, thin and frail, complaining of neck pain HEAD: Normocephalic, pupils are 4 mm and reactive, no evidence of trauma to the head EYES: [PERRLA and EOMI.] ENT: Nares clear, no rhinorrhea or epistaxis. Mucous membranes moist. NECK: Midline tenderness to palpation of the cervical spine. C-collar placed in resuscitation room. No obvious step-offs or deformity. CHEST: Coarse breath sounds in the bilateral bases but no wheezing, no respiratory distress, no tachypnea. HEART: [Regular rate and rhythm]. No murmur heard. 2+ peripheral pulses throughout with warm extremities. ABDOMEN: Scaphoid abdomen but nondistended, [nontender], [No rigidity or guarding] EXTREMITIES: Normal range of motion. [No edema.] SKIN: Warm, dry, no rash. NEURO: Somnolent but arousable, GCS 13-14 for mental state, moves bilateral lower extremities with full strength, EHL and FHL 5/5, bilateral upper extremities appear weaker but symmetric. No reported neuropathy. Course Vital Signs Vital signs: Vital Signs Pulse Rate 73 08/16/24 03:09 Respiratory Rate 15 08/16/24 03:09 Blood Pressure 61/46 L 08/16/24 03:09 Temperature 36.4 C 08/16/24 03:18 Pulse Rate 90 08/16/24 05:01 Respiratory Rate 16 08/16/24 04:30 Blood Pressure 77/56 L 08/16/24 05:01 Pulse Oximetry 99 08/16/24 04:30 Oxygen Delivery Room Air 08/16/24 03:10 Procedures EJ/Peripheral Line Arm R: EJ/Peripheral Line Date: 08/16/24 EJ/Peripheral Line Time: 03:15 Time Out Performed: Yes Skin Cleansed in Sterile Fashion: Yes Ultrasound Guided: Yes Size (gauge): 20 IV Secured and Dressing Applied: Yes Patient Tolerated Procedure: well and no complications Arm L: EJ/Peripheral Line Date: 08/16/24 EJ/Peripheral Line Time: 03:16 Time Out Performed: Yes Skin Cleansed in Sterile Fashion: Yes Ultrasound Guided: Yes Size (gauge): 20 IV Secured and Dressing Applied: Yes Patient Tolerated Procedure: well and no complications MDM - Trauma MDM Narrative Medical decision making narrative: 69-year-old male presents as a level 1 trauma activation secondary to fall down 10 stairs with persistent hypotension and bradycardia, neck pain and concern for polytrauma with neurogenic shock on clinical examination. Patient reportedly fell down a flight of stairs at home approximately 10 full steps and landed his head and neck. He has been altered and confused since this happened according to family members to arrive later to the ER for collateral information. Patient is very somnolent but arousable, appears to have weakness in the arms but not the lower extremities. He is very warm and appears to have persistent bradycardia and hypotension with a blood pressure in the 50s to 60 systolic with diastolics in the 20s to 40s. Inappropriate pulse only in the 60s to 70s without any significant tachycardic response. No tachypnea, 100% saturation on room air. C-collar was immediately placed on the patient for concerns of cervical spinal injury or cervical cord injury. Two large-bore IVs were established by myself with IV access through ultrasound guidance. 2 L of LR were infiltrated as well as a total of 1300 mcg of phenylephrine without any improvement his blood pressure whatsoever. Norepinephrine was infused at a high rate with gradual improvement his blood pressure to goal of mean arterial pressure above 90 for cerebral perfusion and spinal cord perfusion based on neurosurgical goals. Chest x-ray and pelvis x-ray were obtained in the resuscitation room and independently reviewed by myself, I do not appreciate any pelvic fractures, no pneumothorax was appreciated coming as a left-sided effusion and this is probably chronic from his previous VATS procedure but do not ICA pneumothorax. Fast exam was conducted by myself and independently interpreted by myself. No free air in the abdomen or pelvis, no free fluid in the abdomen pelvis, no bar code sign bilaterally and no signs of pneumothorax bilaterally. No significant pericardial effusions were seen. Overall negative extended fast exam. While patient is undergoing resuscitation I had the community pharmacist call to [facility] and connected me with the emergency department over there. I discussed the case with the emergency provider and physician Dr. Henning and my concerns for neurogenic shock in the setting of polytrauma. He was accepted as a direct ED to ED transfer as a level 1 trauma to the facility. ALS ambulance is arranged. We tried contacting the [facility] service but they are currently not flying after flight check secondary to weather. ALS ambulance approximately [address] scans were ordered this time to see if he has any obvious burst or cervical spinal fractures, intracranial pathology or anything in his abdomen chest pelvis. Trauma CT scan including CT thorax, abdomen pelvis, CT head and CT cervical spine were obtained. I independently reviewed the imaging studies that were obtained will and I would see degenerative changes in the cervical spine but no obvious burst fractures or subluxations. Intracranial bleed does not seem evident on his CT head. No overt obvious findings on his abdomen and pelvis that was suspicious for free fluid or blood. Overall patient appears to be stabilizing but still having persistent hypotension despite high doses of norepinephrine. Maintains his airway and does have respiratory efforts and I do not feel the need to intubate him at this time especially in the setting of hypotension refractory to pressors. Patient had improvement with continued fluid resuscitation and vasopressors during my frequent re-evaluations. ALS ambulance has arrived and patient is able to be transported this time albeit unstable, he is stable as to the best of our abilities at this time given our facilities capabilities. I spoke to the family members regarding patient's critical condition and presentation here in the emergency department as well as the plan to transfer him to [facility] for trauma evaluation admission and potential surgical interventions if warranted. They were agreeable to the transfer at this time. Medical Records Attestation: I reviewed the patient's medical records. Lab Data Attestation: I reviewed the patient's lab results. 08/16/24 03:24 08/16/24 03:24 Labs: Lab Results 08/16/24 08/16/24 Range/Units 03:24 03:26 WBC 14.2 H (4.5-10.0) K/mm3 RBC 4.42 L (4.6-6.20) M/mm3 Hgb 15.3 (14.0-18.0) g/dL Hct 45.5 (42.0-52.0) % MCV 102.9 H (80-100) fl MCH 34.6 H (26-34) pg MCHC 33.6 (32-36) g/dl RDW 12.7 (11.5-14.5) % Plt Count 194 (150-375) k/mm3 MPV 10.7 H (7.4-10.4) fl Immature Gran % (Auto) 0.6 H (0-0.5) % Neut % (Auto) 84.3 H (45.5-73.1) % Lymph % (Auto) 6.6 L (18.3-44.2) % Carbon % (Auto) 8.0 (2.6-8.5) % Eos % (Auto) 0.3 (0-4.4) % Baso % (Auto) 0.2 (0.2-1.2) % Lymph # (Auto) 0.93 (0.9-3.2) K/mm3 Carbon # (Auto) 1.1 H (0.1-0.6) K/mm3 Eos # (Auto) 0.0 (0-0.3) K/mm3 Baso # (Auto) 0.0 (0.0-0.1) K/mm3 Abs Immat Gran (auto) 0.09 H (0.00-0.031) K/mm3 Absolute Neuts (auto) 12.0 H (1.3-6.7) K/mm3 Absolute Nucleated RBC 0.000 (0.0-0.012) K/mm3 Nucleated RBC % 0.0 (0.0-0.2) % PT 18.1 H (11.1-14.7) Seconds INR 1.5 APTT 45.2 H (22.3-36.8) Seconds Sodium 136 L (137-145) mmol/L Potassium 4.6 (3.4-5.0) mmol/L Chloride 101 (98-107) mmol/L Carbon Dioxide 19 L (22-30) mmol/L Anion Gap 16 H (4-12) mmol/L BUN 56 H (9-20) mg/dL Creatinine 6.80 H (0.7-1.3) mg/dL Estim Creat Clear Calc Not Reportable Estimated GFR 8 L (59 - ) Glucose 129 H (65-110) mg/dL Calcium 8.6 (8.4-10.2) mg/dL Total Bilirubin 0.9 (0.2-1.3) mg/dL AST 162 H (17-59) U/L ALT 51 H (6-50) U/L Alkaline Phosphatase 77 (38-126) U/L Total Protein 7.0 (6.3-8.2) g/dL Albumin 4.0 (3.5-5.1) g/dL Influenza A (RT-PCR) Negative (Negative) Influenza B (RT-PCR) Negative (Negative) RSV (RT-PCR) Negative (Negative) SARS-CoV-2 RNA (RT-PCR) Negative (Negative) Imaging Data Attestation: I personally reviewed and interpreted this imaging study as follows: My impression: Impressions Head CT 08/16/24 06:35 Impression: No intracranial hemorrhage, mass, or acute infarct. Atrophy and chronic white matter changes, as above. Pelvis X-Ray 08/16/24 06:35 Impression: No significant abnormality is seen. Cervical Spine CT 08/16/24 06:36 Impression: No fracture or subluxation of the cervical spine. Degenerative change, as above. Chest X-Ray 08/16/24 06:36 Impression: Bibasilar atelectasis versus bibasilar minimal pulmonary edema. Chest/Abdomen/Pelvis CT 08/16/24 06:38 Impression: No acute posttraumatic change evident. Bibasilar consolidation could reflect atelectasis versus possibly pneumonia, especially possibly the left lung base. Correlate clinically. Intrahepatic and extra hepatic biliary dilatation with cholelithiasis present. Questionable small ampullary mass. Recommend pre and postcontrast MR/MRCP. Constipation. Probable wall thickening of the mid to distal esophagus, suggestive of esophagitis. Mild to moderate emphysema. Critical Care Time Critical Care Time Critical Care Time: Yes Total Critical Care Time: 90 Discharge Plan Discharge Clinical Impression: Neurogenic shock due to traumatic injury, Critical polytrauma Patient Disposition: Acute Care Hospital Condition: Critical Patient Language: Palauan Prescriptions: No Action pantoprazole 40 mg tablet,delayed release (DR/EC) 40 mg PO QAM Qty: 30 3RF cyclobenzaprine 10 mg tablet 10 mg PO BID PRN (Reason: Back Pain) duloxetine 60 mg capsule,delayed release(DR/EC) 60 mg PO DAILY Qty: 90 3RF morphine 30 mg tablet 30 mg PO Q8H PRN (Reason: Pain) gabapentin 300 mg capsule 300 mg PO BID acetaminophen-codeine 300-60 mg tablet 1 tablet PO TID PRN (Reason: Pain) trazodone 100 mg tablet See Rx Instructions .ROUTE .COMPLEX Qty: 90 0RF Dose Instruction: 100 MG ORALLY EVERY DAY AT BEDTIME NEEDED FOR INSOMNIA Rx Instructions: 100 MG ORALLY EVERY DAY AT BEDTIME NEEDED FOR INSOMNIA levothyroxine 50 mcg tablet See Rx Instructions .ROUTE .COMPLEX Qty: 90 0RF Dose Instruction: TAKE 1 TABLET BY MOUTH EVERY DAY Rx Instructions: TAKE 1 TABLET BY MOUTH EVERY DAY lisinopril 20 mg tablet See Rx Instructions .ROUTE .COMPLEX Qty: 90 2RF Dose Instruction: TAKE 1 TABLET BY MOUTH EVERY DAY Rx Instructions: TAKE 1 TABLET BY MOUTH EVERY DAY Follow-up/Referrals: Mark Carmichael DO [Primary Care Provider] - Time of Disposition: 05:10
--- OUTSIDE RECORDS SUMMARY | 2024-08-20 13:47 | XMS_ITS | Encounter Summary ---
Author Organization [facility] Health Address [address] [place] [address] Care Team Providers Care Bounty Hunter Name Role Phone Mark Carmichael DO Primary Care Provider [phone] Encounter Details Date Type Department Care Team (Latest Contact Info) Description 08/16/2024 Travel Social History Tobacco Use Types Packs/Day Years Used Date Smoking Tobacco: Never Assessed AUDIT-C Answer Date Recorded Q1: How often do you have a drink containing alcohol? Never 08/16/2024 Q2: How many drinks containi ng alcohol do you have on a typical day when you are drinking? Patient does not drink Q3: How often do you have si x or more drinks on one occasion? Never 08/16/2024 Sex and Gender Information Value Date Recorded Sex Assigned at Not on file Gender Identity Not on file Sexual Orientation Not on file documented as of this encounter Plan of Treatment Upcoming Encounters Date Type Department Care Team (Late st Contact Info) Description 01/19/2025 11:00 AM CDT Office Visit [facility] [address] [place] [address], [place] [address] Raymond Miller MD [facility] [place] [address] documented as of this encounter Visit Diagnoses Not on filedocumented in this encounter Care Teams Bounty Hunter Relationship Specialty Start Date End Date Mark Carmichael DO [address] [place] [id number] PCP - General Family Medicine 08/16/24 documented as of this encounter
--- OUTSIDE RECORDS SUMMARY | 2024-08-20 13:47 | XMS_ITS | Referral Summary ---
Author Organization [facility] Address [address] [place] [address] Care Team Providers Care Communications Programmer Name Role Phone Mark Carmichael DO Primary Care Provider [phone] Source Comments [facility],non-owned Affiliates and Associated Physician Practices is amultiple site organization consisting of ambulatory clinics and hospital sitesin [place], [place], [place] and [place]. This disclosure is being madepursuant to the Care Everywhere program and may not contain all information available regarding this patient. Last updated 18.[facility] Encounters Date Type Department Care Team Description 4 5:26 AM CLEANING AND MAINTENANCE WORKER - 4 11:57 AM CLEANING AND MAINTENANCE WORKER Hospital Encounter [facility] ACUTE [address] [place] [address] Chet Henning MD Yogendran, Rajiv L, MD Behr, Christopher A, MD Stoeckel, David A, MD Barrios, Christopher R, MD Ishiyama, Takaaki, MD Emergency Medicine Discharge Disposition: Home or Self Care 4 11:27 AM CLEANING AND MAINTENANCE WORKER Anesthesia Event [facility] ENDOSCOPY [address] [place] [address] Willian Cheung MD McGee, Jeffrey, Anes Asst 4 2:30 PM CLEANING AND MAINTENANCE WORKER - 4 3:30 PM CLEANING AND MAINTENANCE WORKER Surgery [facility] ENDOSCOPY [address] [place] [address] Raymond Miller MD ESOPHAGOGASTRODUODENOSCOPY (EGD) /ESOPHAGOSCOPY WITH ULTRASOUND (EUS) 12/15/202 4 Travel from Last 3 Months Allergies Active Allergy Reactions Criticality Noted Date Comments Nsaids Unknown,GI Discomfor t,Shortness of Breath High 02/10/2016 Prednisone Unknown,Shortness of Breath High 07/25/20 Medications * Be aware that medications may not be up to date on this document. Alwaysverify current medications with the patient. Medication Sig Dispensed Refills Start Date End Date Status cyclobenzaprine (Flexeril) 10 MG tablet Take 1 (one) tablet by mouth 2 times daily as needed Active gabapentin (Neurontin) 300 MG capsule Take 1 (one) capsule by mouth 2 times daily Active levothyroxine (Synthroid) 50 MCG tablet Take 1 (one) tablet by mouth once daily 08/04/2024 Active lisinopril (Prinivil; Zestril) 20 MG tablet Take 1 (one) tablet by mouth once daily 08/06/2024 Active acetaminophen-codeine (Tylenol #4) 300-60 MG tablet Take 1 (one) tablet by mouth every 6 hours as needed for Pain 08/08/2024 Active DULoxetine (Cymbalta) 60 MG capsule Take 1 (one) capsule by mouth once daily 08/04/2024 Active morphine IR (MSIR) 30 MG tablet Take 1 (one) tablet by mouth 3 times daily as needed 08/08/2024 Active pantoprazole EC (Protonix) 40 MG tablet Take 1 (one) tablet by mouth every morning 03/27/2024 Active traZODone (Desyrel) 100 MG tablet Take 1 (one) tablet by mouth once Active FLUoxetine (PROzac) 20 MG capsule Take 3 (three) capsules by mouth once daily 12/21/2023 Active Active Problems Problem Noted Date Diagnosed Date Shock 08/16/2024 Fall (on) (from) other stairs and steps, initial encounter 08/16/2024 Hiatal hernia 08/16/2024 Aspiration pneumonitis 08/16/2024 Chronic back pain 08/16/2024 Hypothyroidism 08/16/2024 Rhabdomyolysis 08/16/2024 WILIAM (acute kidney injury) 08/16/2024 Lactic acidosis 08/16/2024 Acute encephalopathy 08/16/2024 Common bile duct dilation 08/16/2024 COPD (chronic obstructive pulmonary disease) Tobacco abuse 08/16/2024 History of lumbar laminectomy 08/16/2024 Leukocytosis 08/16/2024 GERD (gastroesophageal reflux disease) 4 Resolved Problems Problem Noted Date Diagnosed Date Resolved Date Common biliary duct obstruction 08/16/2024 08/16/2024 UTI (urinary tract infection) 08/16/2024 08/16/2024 Immunizations Name Administration Dates Next Due TDAP (7yrs+) 08/16/2024(Deferred: Patient Condition - pt reports tetanus utd) Social History Tobacco Use Types Packs/Day Years Used Date Smoking Tobacco: Never Smokeless Tobacco: Never Tobacco Cessation:Counseling Given: No AUDIT-C Answer Date Recorded Q1: How often do you have a drink containing alcohol? Never 08/16/2024 Q2: How many drinks containi ng alcohol do you have on a typical day when you are drinking? Patient does not drink Q3: How often do you have si x or more drinks on one occasion? Never 08/16/2024 Overall Financial Resource Strain (CARDIA) Answe r Date Recorded How hard is it for you to pa y for the very basics like food, housing, medical care, and heating? Not hard at all 08/20/2024 [facility] [place] [facility] - Occupational Stress Questionnaire Answer Date Recorded Do you feel stress - tense, restless, nervous, or anxious, or unable to sleep at night because your mind is troubled all the time - these days? Not at all 08/20/2024 Hunger Vital Sign Answer Date Recorded Within the past 12 months, y ou worried that your food would run out before you got the money to buy more. Never true 08/20/20 24 Within the past 12 months, t he food you bought just didn't last and you didn't have money to get more. Never true 08/20/2024 PRAPARE - Transportation Answer Date Re corded In the past 12 months, has l ack of transportation kept you from medical appointments or from getting medications? No 08/02 In the past 12 months, has l ack of transportation kept you from meetings, work, or from getting things needed for daily living? No 08/20/2024 Housing Stability Vital Sign Answer Cesar e Recorded In the last 12 months, was t here a time when you were not able to pay the mortgage or rent on time? No 08/20/2024 In the past 12 months, how m any times have you moved where you were living? 0 08/20/2024 At any time in the past 12 m [facility], were you homeless or living in a skilled nursing (including now)? No 08/20/2024 Sex and Gender Information Value Date Recorded Sex Assigned at Not on file Gender Identity Not on file Sexual Orientation Not on file Last Filed Vital Signs Vital Sign Reading Time Taken Comments Blood Pressure 164/85 08/20/2024 11:05 AM CLEANING AND MAINTENANCE WORKER Pulse 60 08/20/2024 11:05 AM CLEANING AND MAINTENANCE WORKER Temperature 36.8 ??C (98.3 ??F) 08/20/2024 11:[address] Respiratory Rate 20 08/20/2024 11:05 AM CLEANING AND MAINTENANCE WORKER Oxygen Saturation 97% 08/20/2024 11:05 AM CLEANING AND MAINTENANCE WORKER Inhaled Oxygen Concentration - - Weight 74.5 kg (164 lb 3.2 oz) 08/18/2024 4:00 A M CLEANING AND MAINTENANCE WORKER Height 182.9 cm (6') 08/16/2024 5:26 AM CLEANING AND MAINTENANCE WORKER Body Mass Index 22.27 08/16/2024 5:26 AM CLEANING AND MAINTENANCE WORKER Functional Status Functional Status Response Date of Assess ment Is person deaf or have serious hearing difficult y? No 08/19/2024 Is person blind or have serious difficulty seein g? No 08/19/2024 Does person have serious dif ficulty walking/climbing stairs? No 08/19/2024 Does person have difficulty dressing/bathing? No 08/19/2024 Does person have difficulty doing errands alone? No 08/19/2024 Cognitive Status Response Date of Assessm ent Does person have difficulty concentrating/remembering/making decisions? No 08/19/2024 Plan of Treatment Upcoming Encounters Date Type Department Care Team (Late st Contact Info) Description 01/19/2025 11:00 AM CDT Office Visit [facility] - GI [address] [place] [address], [place] [address] Raymond Miller MD [address] [place] [address] Procedures Procedure Name Priority Date/Time Associated Diagnosis Comments CBC W AUTO DIFFERENTIAL Routine 08/20/2024 5:49 AM CLEANING AND MAINTENANCE WORKER COMPREHENSIVE METABOLIC PANEL Routine 08/20/2024 5:49 AM CLEANING AND MAINTENANCE WORKER MAGNESIUM BLOOD Routine 08/20/2024 5:49 AM CLEANING AND MAINTENANCE WORKER PHOSPHORUS BLOOD Routine 08/20/2024 5:49 AM CLEANING AND MAINTENANCE WORKER ENDOSCOPIC ULTRASONOGRAPHY, GI Routine 08/19/2024 11:04 AM CLEANING AND MAINTENANCE WORKER CBC W AUTO DIFFERENTIAL Routine 08/19/2024 7:43 AM CLEANING AND MAINTENANCE WORKER COMPREHENSIVE METABOLIC PANEL Routine 08/19/2024 7:43 AM CLEANING AND MAINTENANCE WORKER MAGNESIUM BLOOD Routine 08/19/2024 7:43 AM CLEANING AND MAINTENANCE WORKER PHOSPHORUS BLOOD Routine 08/19/2024 7:43 AM CLEANING AND MAINTENANCE WORKER LACTIC ACID BLOOD Routine 08/18/2024 6:4 0 AM CLEANING AND MAINTENANCE WORKER CBC W AUTO DIFFERENTIAL Routine 08/18/2024 6:40 AM CLEANING AND MAINTENANCE WORKER COMPREHENSIVE METABOLIC PANEL Routine 08/18/2024 6:40 AM CLEANING AND MAINTENANCE WORKER MAGNESIUM BLOOD Routine 08/18/2024 6:40 AM CLEANING AND MAINTENANCE WORKER PHOSPHORUS BLOOD Routine 08/18/2024 6:40 AM CLEANING AND MAINTENANCE WORKER PT-INR [facility] Routine 08/18/2024 6:40 AM CLEANING AND MAINTENANCE WORKER ECHO COMPLETE W CONTRAST Routine 08/17/2024 2:37 PM CLEANING AND MAINTENANCE WORKER Shock (HCC) EKG 12-LEAD Routine 08/17/2024 12:32 PM CLEANING AND MAINTENANCE WORKER Elevated CK WILIAM (acute kidney injury) (HCC) BASIC METABOLIC PANEL (CALCIUM TOTAL) STAT 08/17/2024 5:13 AM CLEANING AND MAINTENANCE WORKER CBC W/O DIFFERENTIAL STAT 08/17/2024 5:13 AM CLEANING AND MAINTENANCE WORKER LACTIC ACID BLOOD STAT 08/17/2024 5:1 3 AM CLEANING AND MAINTENANCE WORKER TSH Routine 08/17/2024 4:07 AM CLEANING AND MAINTENANCE WORKER SYPHILIS ANTIBODY CASCADING REFLEX AM Draw 08/17/2024 4:07 AM CLEANING AND MAINTENANCE WORKER VITAMIN B12 AM Draw 08/17/2024 4:07 AM CLEANING AND MAINTENANCE WORKER HEMOGLOBIN A1C Routine 08/17/2024 4:07 AM CLEANING AND MAINTENANCE WORKER LACTIC ACID BLOOD Routine 08/17/2024 4:0 7 AM CLEANING AND MAINTENANCE WORKER CK BLOOD Routine 08/17/2024 4:07 AM CLEANING AND MAINTENANCE WORKER CBC W AUTO DIFFERENTIAL Routine 08/17/2024 4:07 AM CLEANING AND MAINTENANCE WORKER COMPREHENSIVE METABOLIC PANEL Routine 08/17/2024 4:07 AM CLEANING AND MAINTENANCE WORKER MAGNESIUM BLOOD Routine 08/17/2024 4:07 AM CLEANING AND MAINTENANCE WORKER PHOSPHORUS BLOOD Routine 08/17/2024 4:07 AM CLEANING AND MAINTENANCE WORKER PT-INR [facility] Routine 08/17/2024 4:07 AM CLEANING AND MAINTENANCE WORKER GLUCOSE - POINT OF CARE Routine 08/17/2024 4:05 AM CLEANING AND MAINTENANCE WORKER GLUCOSE - POINT OF CARE Routine 08/17/2024 12:29 AM CLEANING AND MAINTENANCE WORKER EKG 12-LEAD STAT 08/16/2024 10:17 PM CLEANING AND MAINTENANCE WORKER Elevated CK GLUCOSE - POINT OF CARE Routine 08/16/2024 10:14 PM CLEANING AND MAINTENANCE WORKER DRUG SCREEN EXPANDED TOXICOLOGY URINE PANEL Routine 08/16/2024 10:01 PM CLEANING AND MAINTENANCE WORKER CULTURE BLOOD Timed 08/16/2024 8:33 PM CLEANING AND MAINTENANCE WORKER CULTURE BLOOD Timed 08/16/2024 8:15 PM CLEANING AND MAINTENANCE WORKER CULTURE URINE Routine 08/16/2024 7:46 PM CLEANING AND MAINTENANCE WORKER PHOSPHORUS BLOOD STAT 08/16/2024 7:05 PM CLEANING AND MAINTENANCE WORKER MAGNESIUM BLOOD STAT 08/16/2024 7:05 PM CLEANING AND MAINTENANCE WORKER LACTIC ACID BLOOD STAT 08/16/2024 7: 05 PM CLEANING AND MAINTENANCE WORKER COMPREHENSIVE METABOLIC PANEL STAT 08/16/2024 7:05 PM CLEANING AND MAINTENANCE WORKER CBC W AUTO DIFFERENTIAL STAT 08/16/2024 7:05 PM CLEANING AND MAINTENANCE WORKER BLOOD GASES ART + COOX PANEL Routine 08/16/2024 7:01 PM CLEANING AND MAINTENANCE WORKER LACTIC ACID BLOOD REFLEX TO REPEAT STAT 08/16/2024 3:18 PM CLEANING AND MAINTENANCE WORKER BASIC METABOLIC PANEL (CALCIUM TOTAL) STAT 08/16/2024 10:34 AM CLEANING AND MAINTENANCE WORKER CK BLOOD STAT 08/16/2024 10:34 AM CLEANING AND MAINTENANCE WORKER URINE MICROSCOPIC ONLY REFLEX TO CULTURE STAT 08/16/2024 9:23 AM CLEANING AND MAINTENANCE WORKER UREA NITROGEN URINE RANDOM STAT 08/16/2024 9:23 AM CLEANING AND MAINTENANCE WORKER CREATININE URINE RANDOM STAT 08/16/2024 9:23 AM CLEANING AND MAINTENANCE WORKER LYTES (NA K) URINE RANDOM PANEL STAT 08/16/2024 9:23 AM CLEANING AND MAINTENANCE WORKER URINALYSIS REFLEX MICROSCOPIC REFLEX CULTURE STAT 08/16/2024 9:23 AM CLEANING AND MAINTENANCE WORKER URINE DRUG SCREEN IMMUNOASSAY STAT 08/16/2024 9:23 AM CLEANING AND MAINTENANCE WORKER HEPATIC FUNCTION PANEL STAT 12/15/202 4 8:52 AM CLEANING AND MAINTENANCE WORKER ACETAMINOPHEN LEVEL STAT 08/16/2024 8 :52 AM CLEANING AND MAINTENANCE WORKER TRICYCLICS SCREEN BLOOD STAT 08/16/2024 8:52 AM CLEANING AND MAINTENANCE WORKER SALICYLATE LEVEL BLOOD STAT 8:52 AM CLEANING AND MAINTENANCE WORKER XR PELVIS 1 OR 2VW STAT 08/16/2024 7: 20 AM CLEANING AND MAINTENANCE WORKER Fall (on) (from) other stairs and steps, initial encounter CT ANGIO LOWER EXTREMITY RIGHT STAT 08/16/2024 6:58 AM CLEANING AND MAINTENANCE WORKER Fall (on) (from) other stairs and steps, initial encounter CT ANGIO LOWER EXTREMITY LEFT STAT 08/16/2024 6:58 AM CLEANING AND MAINTENANCE WORKER Fall (on) (from) other stairs and steps, initial encounter CT LUMBAR SPINE WO CONTRAST STAT 08/16/2024 6:58 AM CLEANING AND MAINTENANCE WORKER Fall (on) (from) other stairs and steps, initial encounter CT THORACIC SPINE WO CONTRAST STAT 08/16/2024 6:58 AM CLEANING AND MAINTENANCE WORKER Fall (on) (from) other stairs and steps, initial encounter CT CHEST ABDOMEN PELVIS W CONT STAT 08/16/2024 6:58 AM CLEANING AND MAINTENANCE WORKER Fall (on) (from) other stairs and steps, initial encounter CT CERVICAL SPINE WO CONTRAST STAT 08/16/2024 6:58 AM CLEANING AND MAINTENANCE WORKER Fall (on) (from) other stairs and steps, initial encounter CT HEAD WO CONTRAST STAT 08/16/2024 6 :58 AM CLEANING AND MAINTENANCE WORKER Fall (on) (from) other stairs and steps, initial encounter XR CHEST 1VW PORTABLE STAT 08/16/2024 6:11 AM CLEANING AND MAINTENANCE WORKER Fall (on) (from) other stairs and steps, initial encounter TYPE + SCREEN PANEL STAT 08/16/2024 5 :50 AM CLEANING AND MAINTENANCE WORKER PT-INR [facility] STAT 08/16/2024 5:50 AM CLEANING AND MAINTENANCE WORKER PTT [facility] STAT 08/16/2024 5:50 AM CLEANING AND MAINTENANCE WORKER LIPASE BLOOD STAT 08/16/2024 5:50 AM CLEANING AND MAINTENANCE WORKER CBC W AUTO DIFFERENTIAL STAT 08/16/2024 5:50 AM CLEANING AND MAINTENANCE WORKER BASIC METABOLIC PANEL (CALCIUM TOTAL) STAT 08/16/2024 5:50 AM CLEANING AND MAINTENANCE WORKER ALCOHOL ETHYL BLOOD STAT 08/16/2024 5 :50 AM CLEANING AND MAINTENANCE WORKER from Last 3 Months Results * (ABNORMAL) CBC W AUTO DIFFERENTIAL (08/20/2024 5:49 AM CLEANING AND MAINTENANCE WORKER) Only the most recent of6 resultswithin the time period is included. WBC 3.6(L) 4.0 - 10.7 x10E9/L 08/20/2024 6:56 AM [facility] RBC Count 3.32(L) 4.30 - 5.80 x10E12/L 08/20/2024 6:56 AM [facility] Hemoglobin 11.3(L) 13.3 - 17.5 g/dL 08/20/2024 6:56 AM [facility] Hematocrit 32.1(L) 38.7 - 51.1 % 08/20/2024 6:56 AM [facility] MCV 96.7 80.0 - 98.0 fL 08/20/2024 6:56 AM [facility] MCH 34.0(H) 26.7 - 33.6 pg 08/20/2024 6:56 AM [facility] MCHC 35.2 31.7 - 36.3 g/dL 08/20/2024 6:56 AM [facility] RDW-CV 12.2 11.3 - 14.8 % 08/20/2024 6:56 AM [facility] Platelet Count 141(L) 150 - 420 x10E9/L 08/20/2024 6:56 AM [facility] MPV 10.0 7.8 - 11.4 fL 08/20/2024 6:56 AM [facility] Neutrophil % 57.6 41.0 - 74.0 % 08/20/2024 6:56 AM [facility] Lymphocyte % 27.2 17.0 - 47.0 % 08/20/2024 6:56 AM [facility] Monocyte % 10.8 3.0 - 11.0 % 08/20/2024 6:56 AM [facility] Eosinophil % 3.3 0.0 - 7.0 % 08/20/2024 6:56 AM [facility] Basophil % 0.3 0.0 - 1.6 % 08/20/2024 6:56 AM [facility] Immature Granulocytes % 0.8 0.0 - 1.0 % 08/20/2024 6:56 AM [facility] Neutrophil Absolute 2.07 1.60 - 7.50 x10E9/L 08/20/2024 6:56 AM [facility] Lymphocyte Absolute 0.98(L) 1.00 - 4.40 x10E9/L 08/20/2024 6:56 AM [facility] Monocyte Absolute 0.39 0.15 - 1.00 x10E9/L 08/20/2024 6:56 AM [facility] Eosinophil Absolute 0.12 0.00 - 0.60 x10E9/L 08/20/2024 6:56 AM [facility] Basophil Absolute 0.01 0.00 - 0.13 x10E9/L 08/20/2024 6:56 AM [facility] Blood BLOOD SPECIMEN / Unknown Lab Venipuncture / Unknown 08/20/2024 5:49 AM CLEANING AND MAINTENANCE WORKER 08/20/2024 6:35 AM [facility] Can Woo MD LAB - HEMATOLOGY ORD ERABLES [facility] [address] [place] [address], [facility] [phone] * (ABNORMAL) COMPREHENSIVE METABOLIC PANEL (08/20/2024 5:49 AM [facility]) Only the most recent of5 resultswithin the time period is included. BUN 13 7 - 26 mg/dL 08/20/2024 7:13 AM [facility] Creatinine 0.84 0.71 - 1.16 mg/dL 08/20/2024 7:13 AM [facility] Sodium 140 136 - 145 mmol/L 08/20/2024 7:13 AM [facility] Potassium 4.1 3.5 - 4.5 mmol/L 08/20/2024 7:13 AM [facility] Chloride 110(H) 98 - 107 mmol/L 08/20/2024 7:13 AM [facility] CO2 24 22 - 29 mmol/L 08/20/2024 7:13 AM [facility] Glucose 76 70 - 99 mg/dL 08/20/2024 7:13 AM [facility] Calcium 8.2(L) 8.4 - 10.2 mg/dL 08/20/2024 7:13 AM [facility] Protein Total 5.0(L) 6.0 - 8.3 g/dL 08/20/2024 7:13 AM [facility] Albumin 2.4(L) 3.4 - 5.0 g/dL 08/20/2024 7:13 AM [facility] Bilirubin Total 0.4 0.2 - 1.2 mg/dL 08/20/2024 7:13 AM [facility] Alkaline Phosphatase 44 40 - 150 U/L 08/20/2024 7:13 AM [facility] ALT 34 5 - 55 U/L 08/20/2024 7:13 AM [facility] AST 39(H) 5 - 34 U/L 08/20/2024 7:13 AM [facility] Anion Gap 6 6 - 16 08/20/2024 7:13 AM [facility] BUN/Creatinine Ratio 15 7 - 23 08/20/2024 7:13 AM [facility] Osmolality Calculated 289 275 - 295 mOsm/kg 08/20/2024 7:13 AM [facility] Albumin/Globulin Ratio 0.9(L) 1.1 - 2.3 08/20/2024 7:13 AM CLEANING AND MAINTENANCE WORKER [facility] eGFR by CKD-EPI >90 >=90 mL/min/1.7 3 m2 08/20/2024 7:13 AM CLEANING AND MAINTENANCE WORKER [facility] Blood BLOOD SPECIMEN / Unknown Lab Venipuncture / Unknown 08/20/2024 5:49 AM CLEANING AND MAINTENANCE WORKER 08/20/2024 6:39 AM CLEANING AND MAINTENANCE WORKER Can Woo MD LAB - CHEMISTRY BINDU BOO [facility] [address] [place] [address], [facility] [phone] * (ABNORMAL) PHOSPHORUS BLOOD (08/20/2024 5:49 AM CLEANING AND MAINTENANCE WORKER) Only the most recent of5 resultswithin the time period is included. Phosphorus 2.6(L) 2.8 - 5.1 mg/dL 08/20/2024 7:13 AM CLEANING AND MAINTENANCE WORKER [facility] Blood BLOOD SPECIMEN / Unknown Lab Venipuncture / Unknown 08/20/2024 5:49 AM CLEANING AND MAINTENANCE WORKER 08/20/2024 6:39 AM CLEANING AND MAINTENANCE WORKER Can Woo MD LAB - CHEMISTRY BINDU BOO Performing Organization Address City/[facility]/ZIP Co de Phone Number [address] [address], [place] [phone] * MAGNESIUM BLOOD (08/20/2024 5:49 AM CLEANING AND MAINTENANCE WORKER) Only the most recent of5 resultswithin the time period is included. Magnesium 1.7 1.6 - 2.6 mg/dL 08/20/2024 7:13 AM CLEANING AND MAINTENANCE WORKER [facility] Blood BLOOD SPECIMEN / Unknown Lab Venipuncture / Unknown 08/20/2024 5:49 AM CLEANING AND MAINTENANCE WORKER 08/20/2024 6:39 AM CLEANING AND MAINTENANCE WORKER Can Woo MD LAB - CHEMISTRY BINDU BOO Performing Organization Address City/[facility]/ZIP Co de Phone Number [address] [address], [facility] [phone] * Endoscopic Ultrasonography, GI (08/19/2024 11:04 AM CLEANING AND MAINTENANCE WORKER) Report Endoscopy POC Endoscopy Department Report _ Patient Name: Ray Ashley ?Procedure Date: 08/19/2024 11:04 AM ?Date of : 1955 Classification: Inpatient ? Gender: Male Ethnicity: Not or ? Race: White _ Providers: ?Raymond Miller MD, Vasquez Be ?(Fellow) Referring : ? Inpatient team Procedure: ?Upper EUS Indications: ?Common bile duct dilation (etiology unknown) seen ?on CT scan Medications: ?Monitored Anesthesia Care Patient Profile: ?69 year old male presenting for evaluation of ?incidental biliary dilation. Description of Procedure: Pre-Anesthesia Assessment: ?- Prior to the procedure, a History and Physical ?was performed, and patient medications and ?allergies were reviewed. The patient's tolerance of ?previous anesthesia was also reviewed. The risks ?and benefits of the procedure and the sedation ?options and risks were discussed with the patient. ?All questions were answered, and informed consent ?was obtained. Prior Anticoagulants: The patient has ?taken no anticoagulant or antiplatelet agents. ASA ?Grade Assessment: III - A patient with severe ?systemic disease. After reviewing the risks and ?benefits, the patient was deemed in satisfactory ?condition to undergo the procedure. ?After obtaining informed consent, the endoscope was ?passed under direct vision. Throughout the ?procedure, the patient's blood pressure, pulse, and ?oxygen saturations were monitored continuously. The ?[id number] was introduced through the mouth, and ?advanced to the second part of duodenum. The ?Duodenoscope was introduced through the and ?advanced to the. The upper EUS was accomplished ?without difficulty. The patient tolerated the ?procedure well. ? Findings: ? ENDOSCOPIC FINDING: : ? The major papilla appeard normal using the side-viewing scope. ? ENDOSONOGRAPHIC FINDING: : ? Multiple stones were visualized endosonographically in the gallbladder. ? They were characterized by shadowing. ? There was dilation in the common bile duct which measured up to 15 mm ? proximally with smooth tapering distally towards the ampulla. The distal ? CBD measured 5 mm in diameter. ? Endosonographic imaging in the common bile duct showed no stones or ? obstructive mass. ? There was no sign of significant endosonographic abnormality in the ? ampulla. No masses were identified. ? Pancreatic parenchymal abnormalities were noted in the pancreatic body. ? These consisted of mild hypoechoic foci. ? Endosonographic imaging in the entire pancreas showed no mass. ? The pancreatic duct had a normal endosonographic appearance in the body ? of the pancreas. The pancreatic duct measured up to 2 mm in diameter. ? Estimated Blood Loss: ? Estimated blood loss: none. Complications: ?No immediate complications. Impression: ? - Normal major papilla. ?- Multiple stones were visualized ?endosonographically in the gallbladder. ?- There was dilation in the common bile duct which ?measured up to 15 mm with smooth distal tapering. ?- There was no sign of significant pathology in the ?ampulla. ?- Pancreatic parenchymal abnormalities consisting ?of mild hypoechoic foci were noted in the pancreas. ?- The pancreatic duct had a normal endosonographic ?appearance in the body of the pancreas. The ?pancreatic duct measured up to 2 mm in diameter. ?- No specimens collected. Recommendation: ? - [facility]. ?- Resume previous diet. ?- Continue present medications. ?- Return to GI clinic in 6 months and consider ?MRI/MRCP. ?- The signs and symptoms of potential delayed ?complications were discussed with the patient. ?- Patient has a contact number available for ?emergencies. ? Attending Participation: ??I was present and participated during the entire ?procedure, including non-santos portions. ? Procedure Code(s): ? --- Professional --- ? 98836, Esophagogastroduodenos copy, flexible, transoral; with endoscopic ? ultrasound examination limited to the esophagus, stomach or duodenum, ? and adjacent structures Diagnosis Code(s): ?--- Professional --- ?K80.20, Calculus of gallbladder without ?cholecystitis without obstruction ?K86.9, Disease of pancreas, unspecified ?K83.8, Other specified diseases of biliary tract ?R93.2, Abnormal findings on diagnostic imaging of ?liver and biliary tract CPT copyright 2022 [employer]. All rights reserved. The codes documented in this report are preliminary and upon hospital coder review may be revised to meet current compliance requirements. Raymond Miller MD 08/19/2024 12:49:34 PM This report has been signed electronically. Note Initiated On: 08/19/2024 11:04 AM Number of Addenda: 0 ? [facility] ? [address] [place] [address] [facility] [place] 08/19/2024 11:0 4 AM CLEANING AND MAINTENANCE WORKER Narrative Procedure Note Kay Isidro MD - 08/19/2024 12:50 PM CST (No note.) Oscar Zendejas MD GI PROCEDURE ORDERAB LES Performing Organization Address City/[facility]/ZIP Co de Phone Number [facility] [place] * PT-INR [facility] (08/18/2024 6:40 AM CLEANING AND MAINTENANCE WORKER) Only the most recent of3 resultswithin the time period is included. PT 14.2 12.1 - 14.8 Seconds 08/18/2024 7:34 AM CLEANING AND MAINTENANCE WORKER [facility] INR 1.1 See Comment 08/18/2024 7:34 AM CLEANING AND MAINTENANCE WORKER [facility] Comment:The suggested therap eutic range for standard coumadin (warfarin) therapy is an INR of 2.0-3.0. For high-risk patients (Mechanical Mitral Valve Prosthesis, etc.), the suggested prophylactic therapeutic range is an INR of 2.5-3.5. Blood BLOOD SPECIMEN / Unknown Lab Venipuncture / Unknown 08/18/2024 6:40 AM CLEANING AND MAINTENANCE WORKER 08/18/2024 7:13 AM CLEANING AND MAINTENANCE WORKER Can Woo MD LAB - COAGULATION OR DERABLES [facility] [address] [place] [address], [facility] [phone] * LACTIC ACID BLOOD (08/18/2024 6:40 AM CLEANING AND MAINTENANCE WORKER) Only the most recent of4 resultswithin the time period is included. Lactic Acid-Stat 1.1 <=2.0 mmol/L 08/18/2024 7:23 AM CLEANING AND MAINTENANCE WORKER [facility] Blood BLOOD SPECIMEN / Unknown Lab Venipuncture / Unknown 08/18/2024 6:40 AM CLEANING AND MAINTENANCE WORKER 08/18/2024 6:53 AM CLEANING AND MAINTENANCE WORKER Can Woo MD LAB - CHEMISTRY BINDU BOO [facility] [address] [place] [address], [facility] [phone] * ECHO COMPLETE W CONTRAST (08/17/2024 2:37 PM CLEANING AND MAINTENANCE WORKER) Pathologist [facility] LVOT diam 2.23 cm SSM CV FUJ I PACS LV biplane EF 68.429 % SSM CV FUJI PACS LV A2C EF 61.88 % SSM CV FUJ I PACS LV A4C EF 75.242 % SSM CV FUJ I PACS LV EDV A2C 83.452 ml SSM CV FU JI PACS LV EDV A4C 90.561 ml SSM CV FU JI PACS LV ESV A2C 31.812 ml SSM CV FU JI PACS LV ESV A4C 22.421 ml SSM CV FU JI PACS LVOT pk aravind 127.652 cm/s SSM CV F UJI PACS LVOT VTI 22.255 cm SSM CV FUJ I PACS RV-farrell basal diam 3.734 cm SSM CV FUJI PACS RVOT diam Doppler 2.718 cm SSM CV FUJI PACS RVOT pk aravind 66.78 cm/s SSM CV F UJI PACS RVOT VTI 14.325 cm SSM CV FUJ I PACS LA size 3.277 cm SSM CV FUJ I PACS LA vol BP 39.403 ml SSM CV FUJ I PACS RA area 11.564 cm? ? ? SSM CV FUJI PACS AV mn grad 3.382 mmHg SSM CV FU JI PACS AV pk aravind 135.812 cm/s SSM CV FUJ I PACS AV VTI 24.243 cm SSM CV FUJ I PACS MV A pk aravind 79.206 cm/s SSM CV F UJI PACS MV E pk aravind 78.034 cm/s SSM CV F UJI PACS MV E' lateral aravind 9.049 cm/s SSM CV FUJI PACS MV mn grad 1.355 mmHg SSM CV FU JI PACS MV VTI 25.365 cm SSM CV FUJ I PACS PV pk aravind 76.07 cm/s SSM CV FUJ I PACS PV VTI 13.837 cm SSM CV FUJ I PACS TAPSE 2.225 cm SSM CV FUJ I PACS TR pk aravind 260.308 cm/s SSM CV FUJ I PACS Ascending aorta 3.443 cm SSM CV FUJI PACS LA vol index 0.022 l/m? ? ? SSM CV FUJI PACS Myocardial strain charge 1 unitless SSM CV FUJI PACS Anatomical Region Laterality Modality Ultrasound 08/17/2024 1:34 PM CLEANING AND MAINTENANCE WORKER Narrative 08/18/2024 8:50 AM CLEANING AND MAINTENANCE WORKER Summary ??* The left ventricle is normal in size, with normal systolic function and an estimated ejection fraction of 68 % by biplane method of disks. Left ventricular wall motion is normal. ??* The left ventricular diastolic function is normal. ??* Right ventricle is mildly dilated with moderately reduced systolic function. ??* The pulmonary artery systolic pressure is borderline elevated, 35 mmHg. ??* No hemodynamically significant valve disease. Patient Info Name: ? Ray Ashley Age: ? 69 years : ? 1955 Gender: ? Male Accession #: ? [id number] Ht: ? 65 in Wt: ? 155 lb BSA: ? 1.81 m2 HR: ? 69 bpm BP: ? 127 / ? 70 mmHg Heart Rhythm: ? Sinus Rhythm Exam Date: ? 08/17/2024 1:34 PM Exam Room: ? 411 Patient Status: ? O/P Study Site: ? [facility] Primary Location: ? [facility] EStudy Info Technical Quality: ? Fair Exam Type: ? ECHO COMPLETE W CONTRAST Indications ?R57.9 - Shock (HCC) Procedure(s) ??* A complete 2D, color Doppler, and spectral Doppler transthoracic echocardiogram was performed. ??* An Ultrasound Enhancing Agent (UEA) was utilized to enhance endocardial definition and opacify the left ventricle. ??* Strain imaging performed per cardiology department protocol to evaluate and/or monitor myocardial function. Contrast/Agitated Saline Contrast / Saline: ? Definity Amount: ? 1.00 ml Administered By: ? Kayley Koo RDCS Reaction to Contrast: ? no Reason for Technically Difficult ??Study: ? lung interference, positional limitations Staff Referring Physician: ? Can Woo Ordering Provider: ? Can Woo Attending Physician: ? Cna Woo Fraud Analyst: ? Kayley Koo RDCS Left Ventricle ??The left ventricle is normal in size. Left ventricular systolic function is normal with an estimated ejection fraction of 68 % by biplane method of disks. The left ventricular mass is normal. Left ventricular segmental wall motion is normal. The left ventricular diastolic function is normal. Right Ventricle ??The right ventricle is mildly dilated. Right ventricular systolic function is moderately reduced. Left Atrium ??The left atrium is normal in size with a left atrial volume index of 22 ml/m2 by BP MOD. Right Atrium ??The right atrium is normal in size. Atrial Septum ??Intact interatrial septum visualized by 2D and color Doppler imaging. Aortic Valve ??The aortic valve is trileaflet. There is no aortic valve stenosis. There is no aortic valve regurgitation. Pulmonic Valve ??The pulmonic valve is grossly normal. There is no pulmonic valve stenosis. There is trace pulmonic regurgitation. Mitral Valve ??The mitral valve is grossly normal. There is no mitral valve stenosis. There is no significant mitral valve regurgitation. Tricuspid Valve ??The tricuspid valve is grossly normal. There is trace tricuspid valve regurgitation. The pulmonary artery systolic pressure is borderline elevated, 35 mmHg. Inferior Vena Cava ??The inferior vena cava is not well visualized and therefore the right atrial pressure is assumed to be 8 mmHg. Pericardium/Pleural ??There is no pericardial effusion. Aorta ??The aortic root at the sinus of Valsalva is normal in size. The ascending aorta is normal in size. Measurements Left Ventricular Outflow Tract Name ? Value ?Normal LVOT 2D LVOT Diameter ? 2.2 cm ? LVOT Area ?3.9 cm2 ? LVOT Doppler LVOT Peak Velocity ? 1.3 m/s ? LVOT Peak Gradient ?7 mmHg ? LVOT Mean Velocity ?78.49 cm/s ? LVOT Mean Gradient ?3 mmHg ? LVOT VTI ? 22.3 cm ? LVOT VTI/AV VTI Ratio ?0.9 ? LVOT Stroke Volume ? 87 ml ? LVOT Stroke Volume Index ?48 ml/m2 ? 35-58 LVOT CO ?6.0 l/min ? LVOT CI ? 3.3 l/min/m2 Pulmonic Valve Name ? Value ?Normal PV 2D RVOT Diameter (2D) ?2.7 cm ? 1.7-2.7 RVOT Doppler RVOT Peak Velocity ? 0.7 m/s ? RVOT Peak Gradient ?2 mmHg ? RVOT Mean Gradient ?1 mmHg ? PV Doppler PV Peak Velocity ? 0.8 m/s ? PV Peak Gradient ?2 mmHg ? PV Mean Gradient ?1 mmHg ? PV Area (Cont Eq VTI) ? 6.00 cm2 ? PV Area Index (Cont Eq VTI) ? 3.32 cm2/m2 ? PV Area (Cont Eq Aravind) ?5.1 cm2 ? PV Area Index (Cont Eq Aravind) ? 2.81 cm2/m2 Mitral Valve Name ? Value ?Normal MV Doppler MV Peak Gradient ?3 mmHg ? MV Mean Gradient ?1 mmHg ? MV DI (VTI) ? 1.14 ? MV PHT ? 73 ms ? MV Area (PHT) ? 3.02 cm2 ? 4.00-5.00 MV Area (Cont Eq VTI) ? 3.43 cm2 ? MV Diastolic Function MV E Peak Velocity ? 0.8 m/sec ? MV A Peak Velocity ? 0.8 m/sec ? MV E/A ? 1.0 ? MV Decel Time (PW) ?268 ms ? MV A Wave Duration ?120 ms ? MV Annular TDI MV Septal e' Velocity ? 6 cm/s ? >=8 MV E/e' (Septal) ?12 ? <=8 MV Lateral e' Velocity ?9 cm/s ?>=10 MV E/e' (Lateral) ?9 ? <=8 MV e' Average ? 8 cm/s ? MV E/e' (Average) ? 10 Tricuspid Valve Name ? Value ?Normal TV Regurgitation Doppler TR Peak Velocity ? 2.6 m/s ? TR Peak Gradient ? 27 mmHg ? Estimated PAP/RSVP RA Pressure ? 8 mmHg ? <=5 PA Systolic Pressure ? 35 mmHg ? <35 RV Systolic Pressure ? 35 mmHg ? <36 TV Annular TDI TV Lateral Elisabet s' Velocity ? 11 cm/s ? 10-19 Pulmonary Vessels Name ? Value ?Normal Pulmonary Veins Pulm Vein Peak Systolic Velocity ? 59.4 cm/s ? Pulm Vein Peak Diastolic Velocity ? 55.8 cm/s ? Pulm Vein S/D Velocity Ratio ?1 ? Pulm Vein Ar Velocity ?29.0 cm/s ? Pulm Vein Ar Dur - MV A Dur ?20 ms Aorta Name ? Value ?Normal Ascending Aorta Asc Ao Diameter ? 3.4 cm ? 2.2-3.8 Asc Ao Diameter Index ?1.9 cm/m2 ? 1.1-1.9 Septae/Shunt/Generic Name ? Value ?Normal Qp/Qs Qp/Qs ?1.0 Aortic Valve Name ? Value ?Normal AV 2D/MM AV Cusp Sep (MM) ?2.4 cm ? AV Doppler AV Peak Velocity ?1.36 m/s ? AV Peak Gradient ?7 mmHg ? AV Mean Gradient ?3 mmHg ? AV VTI ? 24 cm ? AV Area (Cont Eq VTI) ? 3.59 cm2 ?>=2.00 AV Area (Cont Eq Aravind) ? 3.67 cm2 ? AV DI (VTI) ? 0.92 ? AV DI (Aravind) ? 0.94 ? AV Regurgitation 2D LVOT Area ? 3.91 cm2 Ventricles Name ? Value ?Normal LV Fractional Shortening/Ejection Fraction 2D/MM LV Diastolic Volume (4C MOD) ? 91 ml ? LV EF (4C MOD) ?75 % ? LV Diastolic Volume (2C MOD) ? 83 ml ? LV EF (2C MOD) ?62 % ? LV Diastolic Volume (BP MOD) ? 91 ml ?62-150 LV Diastolic Volume Index (BP MOD) ?50 ml/m2 ? 34-74 LV Systolic Volume (BP MOD) ?29 ml ? 21-61 LV Systolic Volume Index (BP MOD) ?16 ml/m2 ? 11-31 LV EF (BP MOD) ?68 % ? 52-72 LV Diastolic Length (4C) ?9.1 cm ? LV Systolic Length (4C) ? 5.7 cm ? LV Stroke Volume (4C MOD) ?68 ml ? RV Dimensions 2D/MM RV Basal Diastolic Dimension ? 3.7 cm ? 2.5-4.1 RV Diastolic Length (4C) ?7.8 cm ? 5.9-8.3 TAPSE ? 2.2 cm ? >=1.7 Atria Name ? Value ?Normal LA Dimensions LA Dimension (2D) ? 3.3 cm ? 3.0-4.1 LA Dimen Index (2D) ?1.8 cm/m2 ? LA Volume (BP MOD) ? 39 ml ? LA Volume Index (BP MOD) ?22 ml/m2 ? 16-34 RA Dimensions RA Area (4C) ?12 cm2 ?<=18 RA Area (4C) Index ?6 cm2/m2 EchoPAC Name ? Value ?Normal CHADD G peak SL(Avg) (AWMA) ?-16.7 % Report Signatures Finalized by Alfredo Reyes on 08/18/2024 08:49 AM Procedure Note Alfredo Reyes MD - 08/18/2024 Summary * The left ventricle is normal in size, with normal systolic functionand an estimated ejection fraction of 68 % by biplane method of disks. Left ventricular wall motion is normal. * The left ventricular diastolic function is normal. * Right ventricle is mildly dilated with moderately reduced systolic function. * The pulmonary artery systolic pressure is borderline elevated, 35mmHg. * No hemodynamically significant valve disease. Patient Info Name: Ray Ashley Age: 69 years : 1955 Gender: Male Ht: 65 in Wt: 155 lb BSA: 1.81 m2 HR: 69 bpm BP: 127 / 70 mmHg Heart Rhythm: Sinus Rhythm Exam Date: 08/17/2024 1:34 PM Exam Room: [facility] Patient Status: O/P Study Site: [facility] Primary Location: [facility] EStudy Info Technical Quality: Fair Exam Type: ECHO COMPLETE W CONTRAST Indications R57.9 - Shock (HCC) Procedure(s) * A complete 2D, color Doppler, and spectral Doppler transthoracic echocardiogram was performed. * An Ultrasound Enhancing Agent (UEA) was utilized to enhanceendocardial definition and opacify the left ventricle. * Strain imaging performed per cardiology department protocol toevaluate and/or monitor myocardial function. Contrast/Agitated Saline Contrast / Saline: Definity Amount: 1.00 ml Administered By: Kayley Koo RDCS Reaction to Contrast: no Reason for Technically Difficult Study: lung interference,positional limitations Staff Referring Physician: Can Woo Ordering Provider: Can Woo Attending Physician: Can Woo Fraud Analyst: Kayley Koo RDCS Left Ventricle The left ventricle is normal in size. Left ventricular systolic functionis normal with an estimated ejection fraction of 68 % by biplane method ofdisks. The left ventricular mass is normal. Left ventricular segmental wallmotion is normal. The left ventricular diastolic function is normal. Right Ventricle The right ventricle is mildly dilated. Right ventricular systolicfunction is moderately reduced. Left Atrium The left atrium is normal in size with a left atrial volume index of22 ml/m2 by BP MOD. Right Atrium The right atrium is normal in size. Atrial Septum Intact interatrial septum visualized by 2D and color Doppler imaging. Aortic Valve The aortic valve is trileaflet. There is no aortic valve stenosis. Thereis no aortic valve regurgitation. Pulmonic Valve The pulmonic valve is grossly normal. There is no pulmonic valvestenosis. There is trace pulmonic regurgitation. Mitral Valve The mitral valve is grossly normal. There is no mitral valve stenosis.There is no significant mitral valve regurgitation. Tricuspid Valve The tricuspid valve is grossly normal. There is trace tricuspid valve regurgitation. The pulmonary artery systolic pressure is borderlineelevated, 35 mmHg. Inferior Vena Cava The inferior vena cava is not well visualized and therefore the rightatrial pressure is assumed to be 8 mmHg. Pericardium/Pleural There is no pericardial effusion. Aorta The aortic root at the sinus of Valsalva is normal in size. Theascending aorta is normal in size. Measurements Left Ventricular Outflow Tract Name Value Normal LVOT 2D LVOT Diameter 2.2 cm LVOT Area 3.9 cm2 LVOT Doppler LVOT Peak Velocity 1.3 m/s LVOT Peak Gradient 7 mmHg LVOT Mean Velocity 78.49 cm/s LVOT Mean Gradient 3 mmHg LVOT VTI 22.3 cm LVOT VTI/AV VTI Ratio 0.9 LVOT Stroke Volume 87 ml LVOT Stroke Volume Index 48 ml/m2 35-58 LVOT CO 6.0 l/min LVOT CI 3.3 l/min/m2 Pulmonic Valve Name Value Normal PV 2D RVOT Diameter (2D) 2.7 cm 1.7-2.7 RVOT Doppler RVOT Peak Velocity 0.7 m/s RVOT Peak Gradient 2 mmHg RVOT Mean Gradient 1 mmHg PV Doppler PV Peak Velocity 0.8 m/s PV Peak Gradient 2 mmHg PV Mean Gradient 1 mmHg PV Area (Cont Eq VTI) 6.00 cm2 PV Area Index (Cont Eq VTI) 3.32 cm2/m2 PV Area (Cont Eq Aravind) 5.1 cm2 PV Area Index (Cont Eq Aravind) 2.81 cm2/m2 Mitral Valve Name Value Normal MV Doppler MV Peak Gradient 3 mmHg MV Mean Gradient 1 mmHg MV DI (VTI) 1.14 MV PHT 73 ms MV Area (PHT) 3.02 cm2 4.00-5.00 MV Area (Cont Eq VTI) 3.43 cm2 MV Diastolic Function MV E Peak Velocity 0.8 m/sec MV A Peak Velocity 0.8 m/sec MV E/A 1.0 MV Decel Time (PW) 268 ms MV A Wave Duration 120 ms MV Annular TDI MV Septal e' Velocity 6 cm/s >=8 MV E/e' (Septal) 12 <=8 MV Lateral e' Velocity 9 cm/s >=10 MV E/e' (Lateral) 9 <=8 MV e' Average 8 cm/s MV E/e' (Average) 10 Tricuspid Valve Name Value Normal TV Regurgitation Doppler TR Peak Velocity 2.6 m/s TR Peak Gradient 27 mmHg Estimated PAP/RSVP RA Pressure 8 mmHg <=5 PA Systolic Pressure 35 mmHg <35 RV Systolic Pressure 35 mmHg <36 TV Annular TDI TV Lateral Elisabet s' Velocity 11 cm/s 10-19 Pulmonary Vessels Name Value Normal Pulmonary Veins Pulm Vein Peak Systolic Velocity 59.4 cm/s Pulm Vein Peak Diastolic Velocity 55.8 cm/s Pulm Vein S/D Velocity Ratio 1 Pulm Vein Ar Velocity 29.0 cm/s Pulm Vein Ar Dur - MV A Dur 20 ms Aorta Name Value Normal Ascending Aorta Asc Ao Diameter 3.4 cm 2.2-3.8 Asc Ao Diameter Index 1.9 cm/m2 1.1-1.9 Septae/Shunt/Generic Name Value Normal Qp/Qs Qp/Qs 1.0 Aortic Valve Name Value Normal AV 2D/MM AV Cusp Sep (MM) 2.4 cm AV Doppler AV Peak Velocity 1.36 m/s AV Peak Gradient 7 mmHg AV Mean Gradient 3 mmHg AV VTI 24 cm AV Area (Cont Eq VTI) 3.59 cm2 >=2.00 AV Area (Cont Eq Aravind) 3.67 cm2 AV DI (VTI) 0.92 AV DI (Aravind) 0.94 AV Regurgitation 2D LVOT Area 3.91 cm2 Ventricles Name Value Normal LV Fractional Shortening/Ejection Fraction 2D/MM LV Diastolic Volume (4C MOD) 91 ml LV EF (4C MOD) 75 % LV Diastolic Volume (2C MOD) 83 ml LV EF (2C MOD) 62 % LV Diastolic Volume (BP MOD) 91 ml 62-150 LV Diastolic Volume Index (BP MOD) 50 ml/m2 34-74 LV Systolic Volume (BP MOD) 29 ml 21-61 LV Systolic Volume Index (BP MOD) 16 ml/m2 11-31 LV EF (BP MOD) 68 % 52-72 LV Diastolic Length (4C) 9.1 cm LV Systolic Length (4C) 5.7 cm LV Stroke Volume (4C MOD) 68 ml RV Dimensions 2D/MM RV Basal Diastolic Dimension 3.7 cm 2.5-4.1 RV Diastolic Length (4C) 7.8 cm 5.9-8.3 TAPSE 2.2 cm >=1.7 Atria Name Value Normal LA Dimensions LA Dimension (2D) 3.3 cm 3.0-4.1 LA Dimen Index (2D) 1.8 cm/m2 LA Volume (BP MOD) 39 ml LA Volume Index (BP MOD) 22 ml/m2 16-34 RA Dimensions RA Area (4C) 12 cm2 <=18 RA Area (4C) Index 6 cm2/m2 EchoPAC Name Value Normal CHADD G peak SL(Avg) ([facility]) -16.7 % Report Signatures Finalized by Alfredo Reyes on 08/18/2024 08:49 AM Can Woo MD ECHO CUPID * EKG 12-LEAD (08/17/2024 12:32 PM CLEANING AND MAINTENANCE WORKER) Ventricular Rate 73 BPM [facility] Atrial Rate 73 BPM [facility] P-R Interval 176 ms [facility] QRS Duration ms 94 ms [facility] Q-T Interval ms 392 ms H MUSE QTC Calculation (Bezet) 431 ms [facility] MUSE Calculated P Galata 46 degrees [facility] MUSE Calculated R Galata 47 degrees [facility] MUSE Calculated T Galata 29 degrees [facility] Interpretation EKG NORMAL SINUS RHYTHM NORMAL ECG Confirmed by KEN KOO MD ([id number]) on 08/17/2024 5:44:27 PM [facility] M[facility] 08/17/2024 12:3 2 PM CLEANING AND MAINTENANCE WORKER 08/17/2024 5:44 PM CLEANING AND MAINTENANCE WORKER Can Woo MD ECG ORDERABLES [facility] * (ABNORMAL) CBC W/O DIFFERENTIAL (08/17/2024 5:13 AM CLEANING AND MAINTENANCE WORKER) Pathologist [facility] WBC 5.8 4.0 - 10.7 x10E9/L 08/17/2024 5:51 AM [facility] RBC Count 3.53(L) 4.30 - 5.80 x10E12/L 08/17/2024 5:51 AM [facility] Hemoglobin 12.0(L) 13.3 - 17.5 g/dL 08/17/2024 5:51 AM [facility] Hematocrit 35.3(L) 38.7 - 51.1 % 08/17/2024 5:51 AM [facility] MCV 100.0(H) 80.0 - 98.0 fL 08/17/2024 5:51 AM [facility] MCH 34.0(H) 26.7 - 33.6 pg 08/17/2024 5:51 AM [facility] MCHC 34.0 31.7 - 36.3 g/dL 08/17/2024 5:51 AM [facility] RDW-CV 12.5 11.3 - 14.8 % 08/17/2024 5:51 AM [facility] Platelet Count 118(L) 150 - 420 x10E9/L 08/17/2024 5:51 AM [facility] MPV 10.6 7.8 - 11.4 fL 08/17/2024 5:51 AM [facility] Blood BLOOD SPECIMEN / Unknown Line Draw / Unknown 08/17/2024 5:13 AM CLEANING AND MAINTENANCE WORKER 08/17/2024 5:22 AM CLEANING AND MAINTENANCE WORKER Can Woo MD LAB - HEMATOLOGY ORD ERABLES [facility] [address] [place] [address], [facility] [phone] * (ABNORMAL) BASIC METABOLIC PANEL (CALCIUM TOTAL) (08/17/2024 5:13 AM CLEANING AND MAINTENANCE WORKER) Only the most recent of3 resultswithin the time period is included. BUN 36(H) 7 - 26 mg/dL 08/17/2024 5:50 AM [facility] Creatinine 1.50(H) 0.71 - 1.16 mg/dL 08/17/2024 5:50 AM [facility] Sodium 142 136 - 145 mmol/L 08/17/2024 5:50 AM [facility] Potassium 4.3 3.5 - 4.5 mmol/L 08/17/2024 5:50 AM [facility] Chloride 111(H) 98 - 107 mmol/L 08/17/2024 5:50 AM [facility] CO2 24 22 - 29 mmol/L 08/17/2024 5:50 AM [facility] Glucose 103(H) 70 - 99 mg/dL 08/17/2024 5:50 AM [facility] Calcium 7.8(L) 8.4 - 10.2 mg/dL 08/17/2024 5:50 AM [facility] Anion Gap 7 6 - 16 08/17/2024 5:50 AM [facility] BUN/Creatinine Ratio 24(H) 7 - 23 08/17/2024 5:50 AM [facility] Osmolality Calculated 303(H) 275 - 295 mOsm/kg 08/17/2024 5:50 AM [facility] eGFR by CKD-EPI 51(L) >=90 mL/min/1.7 3 m2 08/17/2024 5:50 AM [facility] Blood BLOOD SPECIMEN / Unknown Line Draw / Unknown 08/17/2024 5:13 AM CLEANING AND MAINTENANCE WORKER 08/17/2024 5:21 AM CLEANING AND MAINTENANCE WORKER Can Woo MD LAB - CHEMISTRY ORDE RABLES Performing Organization Address City/[facility]/ZIP Co de Phone Number [id number] [place] [address], [place] [phone] * SYPHILIS ANTIBODY CASCADING REFLEX (08/17/2024 4:07 AM CLEANING AND MAINTENANCE WORKER) Treponema pallidum Antibody Non-react bassem Non-react bassem 08/17/2024 5:09 AM [facility] Comment: No Laboratory evidence of syphilis infection. ?? Note: ??Circulating antibodies may be low or undetectable in early infection. ??If recent exposure is suspected, re-draw sample in 2-4 weeks and repeat testing. Blood BLOOD SPECIMEN / Unknown Line Draw / Unknown 08/17/2024 4:07 AM CLEANING AND MAINTENANCE WORKER 08/17/2024 4:13 AM CLEANING AND MAINTENANCE WORKER Can Woo MD LAB - SEROLOGY ORDER [place] [facility] [address] [place] [address], [place] [phone] * HEMOGLOBIN A1C (08/17/2024 4:07 AM CLEANING AND MAINTENANCE WORKER) Hemoglobin A1c 5.1 <=5.6 % 08/17/2024 9:15 AM [facility] Estimated Average Glucose 100 mg/dL 08/17/2024 9:15 AM [facility] Comment: HbA1c Interpretation: Normal : < 5.7% Pre-diabetes: 5.7-6.4% Diabetes: Equal to or greater than 6.5% Test results diagnostic of diabetes should be repeated for confirmation. Treatment target values recommended by ADA and other clinical organizations should be used to evaluate metabolic control in patients. Reference: [place] [employer], Standards of Care in Diabetes -2020 In patients 70 years and older consider HbA1c target range of 7.0-7.5% (Reference: Blu Pineda et al. JAMDA. 2012) The Sebia assay for the measurement of HbA1c is a National Glycohemoglobin Standardization Program (NGSP) certified method. Blood BLOOD SPECIMEN / Unknown Line Draw / Unknown 08/17/2024 4:07 AM CLEANING AND MAINTENANCE WORKER 08/17/2024 4:20 AM CLEANING AND MAINTENANCE WORKER Can Woo MD LAB - CHEMISTRY BINDU BOO Performing Organization Address City/[facility]/ZIP Co de Phone Number [address] [address], [facility] [phone] * (ABNORMAL) CK BLOOD (08/17/2024 4:07 AM CLEANING AND MAINTENANCE WORKER) Only the most recent of2 resultswithin the time period is included. CK Total 1,786(H) 30 - 200 U/L 08/17/2024 4:56 AM CLEANING AND MAINTENANCE WORKER [facility] Blood BLOOD SPECIMEN / Unknown Line Draw / Unknown 08/17/2024 4:07 AM CLEANING AND MAINTENANCE WORKER 08/17/2024 4:23 AM CLEANING AND MAINTENANCE WORKER Can Woo MD LAB - CHEMISTRY BINDU BOO Performing Organization Address City/[facility]/ZIP Co de Phone Number [address] [address], [place] [phone] * (ABNORMAL) VITAMIN B12 (08/17/2024 4:07 AM CLEANING AND MAINTENANCE WORKER) Vitamin B12 182(L) 213 - 816 pg/mL 08/17/2024 5:15 AM CLEANING AND MAINTENANCE WORKER [facility] Blood BLOOD SPECIMEN / Unknown Line Draw / Unknown 08/17/2024 4:07 AM CLEANING AND MAINTENANCE WORKER 08/17/2024 4:23 AM CLEANING AND MAINTENANCE WORKER Can Woo MD LAB - CHEMISTRY BINDU BOO [address] [address], [facility] [phone] * (ABNORMAL) TSH (08/17/2024 4:07 AM CLEANING AND MAINTENANCE WORKER) [facility] TSH 0.112(L) 0.350 - 4.940 uIU/mL 08/17/2024 5:15 AM CLEANING AND MAINTENANCE WORKER [facility] Blood BLOOD SPECIMEN / Unknown Line Draw / Unknown 08/17/2024 4:07 AM CLEANING AND MAINTENANCE WORKER 08/17/2024 4:23 AM CLEANING AND MAINTENANCE WORKER Can Woo MD LAB - CHEMISTRY BINDU BOO Performing Organization Address City/[facility]/ZIP Co de Phone Number [address] [address], [facility] [phone] * GLUCOSE - POINT OF CARE (08/17/2024 4:05 AM CLEANING AND MAINTENANCE WORKER) Only the most recent of3 resultswithin the time period is included. [facility] Glucose WB/POC 85 70 - 99 mg/dL 08/17/2024 4:10 AM CLEANING AND MAINTENANCE WORKER [facility] Specimen Type Venous 08/17/2024 4:10 AM [facility] Blood BLOOD SPECIMEN / Unknown 08/17/2024 4:05 AM CLEANING AND MAINTENANCE WORKER 08/17/2024 4:10 AM CLEANING AND MAINTENANCE WORKER Can Woo MD LAB - POINT OF CARE ORDERABLES [address] [address], [facility] [phone] * (ABNORMAL) DRUG SCREEN EXPANDED TOXICOLOGY URINE PANEL (08/16/2024 10:01 PM CLEANING AND MAINTENANCE WORKER) [facility] Expanded Drug Screen, Urine Positive(A) Negative 08/17/2024 12:20 PM CLEANING AND MAINTENANCE WORKER [facility] Findings Acetaminophen Caffeine Codeine Codeine glucuronide Cotinine Cyclobenzaprine Diphenhydramine Duloxetine Gabapentin Hydromorphone glucuronide Lisinopril meta-Chloropheny lpiperazine(mCPP ) Morphine Nicotine Trazodone 08/17/2024 12:20 PM CLEANING AND MAINTENANCE WORKER [facility] TO[facility]IC[facility] Urine URINE / Unknown Collection / Unknown 08/16/2024 10:01 PM CLEANING AND MAINTENANCE WORKER 08/16/2024 10:20 PM CLEANING AND MAINTENANCE WORKER Narrative [facility] - 08/17/2024 12:20 PM CLEANING AND MAINTENANCE WORKER Testing performed by Liquid Chromatography-Quadrupole Time Flight Mass Spectrometry. While mass spectrometry is highly sensitive and specific, false-positive and false-negative findings may occur in rare circumstances. If consultation is needed, please contact the Clinical Pathology Resident manager control at [phone] (M-F, 8 am ? 5 pm) or [phone] after hours. This test does not include THC or barbiturates. This testing was developed by the [facility] Toxicology Laboratory in keeping with CLIA requirements. The test has not been cleared or approved by the U.S. Food and Drug Administration. Can Woo MD LAB - URINE CHEMISTR Y ORDERABLES Performing Organization Address City/[facility]/ZIP Co de Phone Number [facility] [address] [place] [address], [facility] [phone] * CULTURE URINE (08/16/2024 7:46 PM CLEANING AND MAINTENANCE WORKER) Pathologist [facility] Culture Urine No growth (<100 CFU/mL) ARLEN 08/18/2024 12:06 AM CLEANING AND MAINTENANCE WORKER [facility] MICRO[facility]OLOGY Urine URINE SPECIMEN OBTAINED BY CLEAN CATCH PROCEDURE / Unknown Collection / Unknown 08/16/2024 7:46 PM CLEANING AND MAINTENANCE WORKER 08/16/2024 7:53 PM CLEANING AND MAINTENANCE WORKER Can Woo MD LAB - MICROBIOLOGY O RDERABLES Performing Organization Address City/[facility]/ZIP Co de Phone Number [facility]CRO[facility]OLOGY [address] [place] [address], [facility] [phone] * (ABNORMAL) BLOOD GASES ART + COOX PANEL (08/16/2024 7:01 PM CLEANING AND MAINTENANCE WORKER) pH Arterial 7.29(L) 7.35 - 7.45 pH 08/16/2024 7:11 PM [facility] pO2 Arterial 61(L) 80 - 100 mmHg 08/16/2024 7:11 PM [facility] pCO2 Arterial 42 35 - 45 mmHg 7:11 PM [facility] HCO3 Arterial 20.2 20.0 - 30.0 mmol/L 08/16/2024 7:11 PM [facility] BE Arterial -6.1(L) -2.0 - 2.0 mmol/L 08/16/2024 7:11 PM [facility] Oxyhemoglobin Arterial 90.1 % 08/16/2024 7:11 PM [facility] Dexoyhemoglobin (HHB) % 7.0 % 08/16/2024 7:11 PM [facility] Methemoglobin <0.8 0.0 - 2.0 % 08/16/2024 7:11 PM [facility] Carboxyhemoglobin 2.6(H) 0.0 - 2.0 % 2023 7:11 PM [facility] O2 Content Arterial 16.8 Interpret within clinical context ml/dL 08/16/2024 7:11 PM [facility] Hemoglobin by COOX 13.3 12.0 - 17.6 g/dL 08/16/2024 7:11 PM [facility] O2 Saturation Arterial 93 90 - 100 % 08/16/2024 7:11 PM [facility] FI O2 Arterial 21.0 % 08/16/2024 7:11 PM [facility] Blood, arterial ARTERIAL BLOOD SPECIMEN / Unknown Arterial Puncture / Unknown 08/16/2024 7:01 PM CLEANING AND MAINTENANCE WORKER 08/16/2024 7:09 PM [facility] - 08/16/2024 7:11 PM [facility] Carboxyhemoglobin Normal Concentration: Non-smokers: 0-2%; Smokers: 0-9%; Toxic: >20% Can Woo MD LAB - BLOOD GASES OR DERABLES [facility] [address] [place] [address], [facility] [phone] * LACTIC ACID BLOOD REFLEX TO REPEAT (08/16/2024 3:18 PM CLEANING AND MAINTENANCE WORKER) Lactic Acid-Stat 1.7 <=2.0 mmol/L 08/16/2024 3:51 PM [facility] Blood BLOOD SPECIMEN / Unknown Venipuncture / Unknown 08/16/2024 3:18 PM CLEANING AND MAINTENANCE WORKER 08/16/2024 3:26 PM CLEANING AND MAINTENANCE WORKER Can Woo MD LAB - CHEMISTRY ORDE RAJEEV [address] [address], [facility] [phone] * (ABNORMAL) URINE MICROSCOPIC ONLY REFLEX TO CULTURE (08/16/2024 9:23 AM CLEANING AND MAINTENANCE WORKER) Reflex Status Culture not indicated 08/16/2024 10:57 AM [facility] RBC UA 6-10(A) None Seen, 0-2, 3-5 /HPF 08/16/2024 10:57 AM [facility] WBC UA 0-5 None Seen, 0-5 /HPF 08/16/2024 10:57 AM [facility] Bacteria UA 1+(A) None /HPF 08/16/2024 10:57 AM [facility] Squamous Epithelial Cells UA 6-10(A) None Seen, 0-2, 3-5 /HPF 08/16/2024 10:57 AM [facility] Mucus UA 2+ /LPF 08/16/2024 10:57 AM [facility] Hyaline Casts UA 3-5(A) None Seen, 0-2 /LPF 08/16/2024 10:57 AM [facility] Urine URINE SPECIMEN OBTAINED BY CLEAN CATCH PROCEDURE / Unknown Collection / Unknown 08/16/2024 9:23 AM CLEANING AND MAINTENANCE WORKER 08/16/2024 9:44 AM CLEANING AND MAINTENANCE WORKER Cresencio Gonzalez MD LAB - URINALYSIS O RDERABLES Performing Organization Address City/[facility]/ZIP Co de Phone Number [address] [address], [facility] [phone] * (ABNORMAL) URINALYSIS REFLEX MICROSCOPIC REFLEX CULTURE (08/16/2024 9:23 AM CLEANING AND MAINTENANCE WORKER) Color UA Rosario(A) Straw, Yellow 08/16/2024 9:53 AM [facility] Clarity UA Slt Cloudy(A) Clear 08/16/2024 9:53 AM [facility] Specific [place]ning UA 1.041(H) 1.005 - 1.030 08/16/2024 9:53 AM [facility] pH UA 5.0 5.0 - 8.0 pH 08/16/2024 9:53 AM [facility] Protein UA 1+(A) Negative 08/16/2024 9:53 AM [facility] Glucose UA Negative Negative 08/16/2024 9:53 AM [facility] Ketone UA Negative Negative 08/16/2024 9:53 AM [facility] Bilirubin UA Negative Negative 08/16/2024 9:53 AM [facility] Blood UA 3+(A) Negative 08/16/2024 9:53 AM [facility] Nitrite UA Negative Negative 08/16/2024 9:53 AM [facility] Leukocyte Esterase Negative Negative 08/16/2024 9:53 AM [facility] Urobilinogen UA 2.0(A) Negative mg/dL 08/16/2024 9:53 AM [facility] Urine URINE SPECIMEN OBTAINED BY CLEAN CATCH PROCEDURE / Unknown Collection / Unknown 08/16/2024 9:23 AM CLEANING AND MAINTENANCE WORKER 08/16/2024 9:44 AM [facility] - 08/16/2024 9:53 AM CLEANING AND MAINTENANCE WORKER Cresencio Gonzalez MD LAB - URINALYSIS O RDERABLES [facility] [address] [place] [address], [facility] [phone] * UREA NITROGEN URINE RANDOM (08/16/2024 9:23 AM CLEANING AND MAINTENANCE WORKER) Urea Nitrogen Random Urine 310 Not Established mg/dL 08/16/2024 10:08 AM [facility] Urine URINE SPECIMEN OBTAINED BY CLEAN CATCH PROCEDURE / Unknown Collection / Unknown 08/16/2024 9:23 AM CLEANING AND MAINTENANCE WORKER 08/16/2024 9:44 AM [facility] Francesco Malik MD LAB - URINE HARVEST CREW SUPERVISOR RY ORDERABLES [facility] [address] [place] [address], [facility] [phone] * (ABNORMAL) URINE DRUG SCREEN IMMUNOASSAY (08/16/2024 9:23 AM [facility]) [facility] Amphetamines Screen Urine Negative Negative : < 1000 ng/mL 08/16/2024 10:07 AM [facility] Barbiturates Screen Urine Negative Negative : < 200 ng/mL 08/16/2024 10:07 AM [facility] Benzodiazepine Screen Urine Negative Negative : < 200 ng/mL 08/16/2024 10:07 AM [facility] Opiates Urine Positive(A) Negative : < 300 ng/mL 08/16/2024 10:07 AM [facility] Comment:Positive urine opiat e screening results should be confirmed by another generally accepted non-immunological method such as gas chromatography or mass spectrometry. Cocaine Metabolites Urine Negative Negative : < 300 ng/mL 08/16/2024 10:07 AM [facility] Phencyclidine Screen Urine Negative Negative : < 25 ng/ml 08/16/2024 10:07 AM [facility] Cannabinoids Screen Urine Negative Negative : <50 ng/mL 08/16/2024 10:07 AM [facility] Methadone Screen Urine Negative Negative : < 300 ng/mL 08/16/2024 10:07 AM [facility] Fentanyl Screen Urine Positive(A) Negative : <1.5 ng/mL 08/16/2024 10:07 AM [facility] Comment:Positive urine fenta nyl screening results should be confirmed by another generally accepted non-immunological method such as gas chromatography or mass spectrometry. Urine URINE / Unknown Collection / Unknown 08/16/2024 9:23 AM CLEANING AND MAINTENANCE WORKER 08/16/2024 9:44 AM [facility] - 08/16/2024 10:07 AM CLEANING AND MAINTENANCE WORKER The Urine Toxicology Screening Panel does not screen for Propoxyphene, Meprobamate, Carisoprodol, Trazodone, [id number] medications and/or volatiles (Acetone, Isopropanol, Methanol or Ethylene Glycol). Ethanol, Salicylate, Acetaminophen, Tricyclic Antidepressants and several therapeutic drugs may be individually assayed in serum or plasma specimen. Toxicology testing by the [facility] is an aid to medical diagnosis and treatment of patients. No documented chain of custody was maintained. Results are intended to be used for clinical purposes only. ? Cresencio Gonzalez MD LAB - URINE CHEMIS TRY ORDERABLES Performing Organization Address [facility] Co de Phone Number [address] [address], [place] [phone] * CREATININE URINE RANDOM (08/16/2024 9:23 AM CLEANING AND MAINTENANCE WORKER) Creatinine Urine 113.55 Not Established mg/dL 08/16/2024 10:08 AM CLEANING AND MAINTENANCE WORKER [facility] Urine URINE SPECIMEN OBTAINED BY CLEAN CATCH PROCEDURE / Unknown Collection / Unknown 08/16/2024 9:23 AM CLEANING AND MAINTENANCE WORKER 08/16/2024 9:44 AM CLEANING AND MAINTENANCE WORKER Francesco Malik MD LAB - URINE HARVE[employer]W SUPERVISOR RY ORDERABLES Performing Organization Address [facility] Co de Phone Number [address] [address], [place] [phone] * LYTES (NA K) URINE RANDOM PANEL (08/16/2024 9:23 AM CLEANING AND MAINTENANCE WORKER) Sodium Urine 60 Not Established mmol/L 08/16/2024 10:08 AM CLEANING AND MAINTENANCE WORKER [facility] Potassium Urine 22.6 Not Established mmol/L 08/16/2024 10:08 AM CLEANING AND MAINTENANCE WORKER [facility] Urine URINE SPECIMEN OBTAINED BY CLEAN CATCH PROCEDURE / Unknown Collection / Unknown 08/16/2024 9:23 AM CLEANING AND MAINTENANCE WORKER 08/16/2024 9:44 AM CLEANING AND MAINTENANCE WORKER Francesco Malik MD LAB - URINE HARVE[employer]W SUPERVISOR RY ORDERABLES Performing Organization Address City/[facility]/ZIP Co de Phone Number [address] [address], [facility] [phone] * (ABNORMAL) TRICYCLICS SCREEN BLOOD (08/16/2024 8:52 AM CLEANING AND MAINTENANCE WORKER) Tricyclic Antidepressants 248(H) 80 - 200 ng/mL 08/16/2024 9:39 AM [facility] Blood BLOOD SPECIMEN / Unknown Venipuncture / Unknown 08/16/2024 8:52 AM CLEANING AND MAINTENANCE WORKER 08/16/2024 9:03 AM CLEANING AND MAINTENANCE WORKER Narrative [facility] - 08/16/2024 9:39 AM CLEANING AND MAINTENANCE WORKER Many drugs significantly cross-react with this assay, including: diphenhydramine, cyclobenzoprine, gabapentin, and fluoxetine. Results should be confirmed by quantitative mass spectrometry. This assay should not be used for following trends. Expected Values for Tricyclic Antidepressants: Pharmacokinetic studies have shown there is a marked individual variation in the therapeutic and toxic response to tricyclic antidepressants at similar blood concentrations. Cardiac effects have been demonstrated with TCA blood levels as low as 50-100 ng/mL. With TCA levels >500 ng/mL, the incidence of serious cardiac toxicity increases significantly. With TCA levels >1000 ng/mL, severe, sometimes fatal, cardiac and other side effects often occur. Cresencio Gonzalez MD LAB - CHEMISTRY OR DERABLES [address] [address], [facility] [phone] * (ABNORMAL) HEPATIC FUNCTION PANEL (08/16/2024 8:52 AM CLEANING AND MAINTENANCE WORKER) Protein Total 5.7(L) 6.0 - 8.3 g/dL 9:36 AM [facility] Albumin 2.7(L) 3.4 - 5.0 g/dL 08/16/2024 9:36 AM [facility] Bilirubin Total 0.4 0.2 - 1.2 mg/dL 08/02 9:36 AM [facility] Bilirubin Conjugated 0.3 0.1 - 0.5 mg/dL 08/16/2024 9:36 AM [facility] Bilirubin Unconjugated 0.1 Unconjugated Bilirubin is a calculated value: Reference ranges have not been established. mg/dL 08/16/2024 9:36 AM [facility] Alkaline Phosphatase 64 40 - 150 U/L 08/16/2024 9:36 AM [facility] ALT 41 5 - 55 U/L 08/16/2024 9:36 AM [facility] AST 78(H) 5 - 34 U/L 08/16/2024 9:36 AM [facility] Albumin/Globulin Ratio 0.9(L) 1.1 - 2.3 08/16/2024 9:36 AM [facility] Blood BLOOD SPECIMEN / Unknown Venipuncture / Unknown 08/16/2024 8:52 AM CLEANING AND MAINTENANCE WORKER 08/16/2024 9:12 AM [facility] Francesco Malik MD LAB - CHEMISTRY ORD ERABLES [facility] [address] [place] [address], [facility] [phone] * (ABNORMAL) SALICYLATE LEVEL BLOOD (08/16/2024 8:52 AM CLEANING AND MAINTENANCE WORKER) Salicylate <5(L) 15 - 30 mg/dL 08/16/2024 9:36 AM [facility] Blood BLOOD SPECIMEN / Unknown Venipuncture / Unknown 08/16/2024 8:52 AM CLEANING AND MAINTENANCE WORKER 08/16/2024 9:12 AM CLEANING AND MAINTENANCE WORKER [facility] - 08/16/2024 9:36 AM CLEANING AND MAINTENANCE WORKER This test is not intended for use with low-dose aspirin therapy. Most patients on low-dose aspirin for cardiovascular prophylaxis will have serum concentrations near or below the lower limit of the analytical range. Cresencio Gonzalez MD LAB - CHEMISTRY OR DERABLES Performing Organization Address [facility] Co de Phone Number [address] [address], [facility] [phone] * ACETAMINOPHEN LEVEL (08/16/2024 8:52 AM CLEANING AND MAINTENANCE WORKER) [facility] Acetaminophen <3.0 <3.0 ug/mL 08/16/2024 9:36 AM [facility] Blood BLOOD SPECIMEN / Unknown Venipuncture / Unknown 08/16/2024 8:52 AM CLEANING AND MAINTENANCE WORKER 08/16/2024 9:12 AM CLEANING AND MAINTENANCE WORKER [facility] - 08/16/2024 9:36 AM [facility] Acetaminophen Toxicity Levels (Hours Post Ingestion): ? >200 ug/mL at 4 hours ? >100 ug/mL at 8 hours ? >50 ug/mL at 12 hours For acute ingestion, please refer to Acetaminophen nomogram to determine the risk of toxicity based on time since ingestion and acetaminophen level (see link provided). Note the nomogram disclaimer. WARNING: Assessing the potential toxicity of an acetaminophen level on a standard risk nomogram must take into consideration many factors including any uncertainty of the time since ingestion or the possibility of other medications that may alter the peak level. Contact the [facility] at or reserved for healthcare professionals to assist you in evaluating potentially toxic acetaminophen levels. Cresencio Gonzalez MD LAB - CHEMISTRY OR DERABLES Performing Organization Address [facility]/ZIP Co de Phone Number [address] [address], [facility] [phone] * XR PELVIS 1 OR 2VW (08/16/2024 7:20 AM CLEANING AND MAINTENANCE WORKER) Anatomical Region Laterality Modality Pelvis Digital Radiogra phy 08/16/2024 7:22 AM CLEANING AND MAINTENANCE WORKER Impressions 08/16/2024 3:31 PM CLEANING AND MAINTENANCE WORKER IMPRESSION: No acute displaced fracture or dislocation of pelvis is identified. Report dictated by Rafi Vicente MD ([place]). Mason Brizuela have personally reviewed and interpreted this examination/study. > Interpreting Provider: Mason Lucero on 08/16/2024 3:31 PM Narrative 08/16/2024 3:31 PM CLEANING AND MAINTENANCE WORKER EXAMINATION: XR PELVIS 1 OR 2VW DATE/TIME OF EXAM: ??08/16/2024 7:22 AM, LOCATION ??[facility] HISTORY: Trauma Fracture suspected COMPARISON: No prior study is available for comparison. FINDINGS: No acute displaced pelvic fracture is visualized on this single view exam.Contrast in the bladder obscures the lower sacrum. Bilateral femoral heads are well-seated in respective acetabular fossas.The bilateral hip joint spaces are preserved. There is no pubic symphysis diastasis. The osseous architecture and density are normal. The sacroiliac joints are not widened. Partially visualized lumbar spine cervical fusion hardware. Degenerative change seen in the visualized lumbar spine. Procedure Note Mason Lucero MD - 08/16/2024 EXAMINATION: XR PELVIS 1 OR 2VW DATE/TIME OF EXAM: 08/16/2024 7:22 AM, LOCATION [facility] HISTORY: Trauma Fracture suspected COMPARISON: No prior study is available for comparison. FINDINGS: No acute displaced pelvic fracture is visualized on this single view exam.Contrast in the bladder obscures the lower sacrum. Bilateralfemoral heads are well-seated in respective acetabular fossas.The bilateral hip joint spaces are preserved. There is no pubic symphysis diastasis. The osseous architecture and density are normal. The sacroiliac joints arenot widened. Partially visualized lumbar spine cervical fusion hardware. Degenerative change seen in the visualized lumbar spine. IMPRESSION: No acute displaced fracture or dislocation of pelvis is identified. Report dictated by Rafi Vicente MD ([place]). I, Mason Mohandas have personally reviewed and interpreted this examination/study. > Interpreting Provider: Mason Lucero on 08/16/2024 3:31 PM Cresencio Gonzalez MD DIAGNOSTIC IMAGING ORDERABLES * CT CHEST ABDOMEN PELVIS W CONT - Abdomen-pelvis trauma, blunt or penetrating (08/16/2024 6:58 AM CLEANING AND MAINTENANCE WORKER) Anatomical Region Laterality Modality Chest, Abdomen, Pelvis Computed Tomography 08/16/2024 8:11 AM CLEANING AND MAINTENANCE WORKER Impressions 08/16/2024 5:01 PM CLEANING AND MAINTENANCE WORKER Impression 1. No acute visceral, vascular, or osseus injury identified in the chest, abdomen, or pelvis. 2. Fluid noted in the right mainstem bronchus consistent with aspiration. There is consolidation of the left lower lobe containing air bronchograms concerning for aspiration/pneumonia. 3. Dilated common bile duct with intrahepatic biliary dilatation. Nonemergent MRI with MRCP could be performed for further evaluation. 4. Moderate hiatal hernia with distended fluid-filled esophagus with esophageal wall thickening which can be seen in setting of gastroesophageal reflux/esophagitis. Report dictated by Bryon Watson MD([place]). I, Viviana Rain MD have personally reviewed and interpreted this examination/study. > Interpreting Provider: Viviana Rain MD on 08/16/2024 5:01 PM Narrative 08/16/2024 5:01 PM CLEANING AND MAINTENANCE WORKER PROCEDURE: ??CT CHEST ABDOMEN PELVIS W CONT, DATE/TIME OF EXAM: ??08/16/2024 7:20 AM, LOCATION ??[facility] INDICATION: Trauma COMPARISON: None. EXAMINATION: Computed tomography (CT) of the chest, abdomen, and pelvis with contrast TECHNIQUE: CT of the chest, abdomen, and pelvis was performed after the uneventful administration of 100 mL of Isovue 370 intravenous contrast according to standard protocol. Findings Chest: Lower neck and Axilla: 6 mm hypoattenuating nodule is noted in the left thyroid lobe which does not meet size criteria for further follow-up imaging. No supraclavicular or axillary lymphadenopathy. Thoracic Vessels: The thoracic aorta is atherosclerotic. The pulmonary artery is normal in caliber. Lungs and Pleura and airways: Fluid is noted in the right mainstem bronchi (series 10, image 43), consistent with aspiration. Consolidation is noted in the left lower lobe containing air bronchograms. No pleural effusion. No pneumothorax. Scattered calcified granulomas are noted. Dependent subsegmental atelectatic changes are noted lungs. Mild centrilobular and paraseptal emphysematous changes Heart and Pericardium: The cardiac chambers are normal in size. No pericardial fluid or thickening is present. Atherosclerotic calcifications of the coronary arteries. Mediastinum and Ness: No mediastinal mass is present. No enlarged lymph nodes are present. Moderate hiatal hernia. The esophagus is distended and fluid-filled with esophageal wall thickening. Abdomen/pelvis: Liver and Gall Bladder: Significant dilatation of the common bile duct measuring up to 1.9 cm. There is moderate central and left hepatic intrahepatic biliary dilatation. Normal gallbladder. Spleen: Multiple hypoattenuating lesions are noted in the spleen measuring up to 1.5 cm measuring greater than fluid density which may represent hemangiomas/lymphangiomas. Pancreas: Mild atrophic pancreas with prominence of the pancreatic duct measuring 5 mm at the pancreatic head Kidneys and Adrenals: The adrenals are normal. Subcentimeter hypoattenuating lesions are noted in the kidneys which are too small to be characterized but likely represent cysts. No hydronephrosis. No renal calculi. Gastrointestinal: Moderate size hiatal hernia. There is significant dilatation of the large bowel containing large stool burden. Mesentery/Peritoneum/Retroperitoneum: No free intraperitoneal air or fluid. No lymphadenopathy. Pelvic Structures: The bladder is distended containing contrast. Normal prostate. Vasculature: The aorta is atherosclerotic. Bones and Soft tissues: Bone windows demonstrate no suspicious lytic or blastic lesions. Chronic appearing compression deformity of the L3 vertebral body with 50 % and no retropulsion. Degenerative changes are seen in the spine. Post surgical changes of L3-L4 and laminectomy and posterior spinal fusion. There is severe lumbar kyphosis at this level. Grade 1 retrolisthesis of L4 on L5. Diffuse osteopenia Procedure Note Viviana Rain MD - 08/16/2024 PROCEDURE: CT CHEST ABDOMEN PELVIS W CONT, DATE/TIME OF EXAM:08/16/2024 7:20 AM, LOCATION [facility] INDICATION: Trauma COMPARISON: None. EXAMINATION: Computed tomography (CT) of the chest, abdomen, and pelvis with contrast TECHNIQUE: CT of the chest, abdomen, and pelvis was performed after the uneventful administration of 100 mL of Isovue 370 intravenous contrast according to standard protocol. Findings Chest: Lower neck and Axilla: 6 mm hypoattenuating nodule is noted in the left thyroid lobe which does not meet size criteria for further follow-up imaging. No supraclavicularor axillary lymphadenopathy. Thoracic Vessels: The thoracic aorta is atherosclerotic. The pulmonary artery is normal in caliber. Lungs and Pleura and airways: Fluid is noted in the right mainstem bronchi (series 10, image 43), consistent with aspiration. Consolidation is noted in the left lowerlobe containing air bronchograms. No pleural effusion. No pneumothorax. Scattered calcified granulomas are noted. Dependent subsegmental atelectatic changes are noted lungs. Mild centrilobular and paraseptal emphysematous changes Heart and Pericardium: The cardiac chambers are normal in size. No pericardial fluid orthickening is present. Atherosclerotic calcifications of the coronary arteries. Mediastinum and Ness: No mediastinal mass is present. No enlarged lymph nodes are present. Moderate hiatal hernia. The esophagus is distended and fluid-filled with esophageal wall thickening. Abdomen/pelvis: Liver and Gall Bladder: Significant dilatation of the common bile duct measuring up to 1.9 cm. There is moderate central and left hepatic intrahepatic biliarydilatation. Normal gallbladder. Spleen: Multiple hypoattenuating lesions are noted in the spleen measuring up to 1.5 cm measuring greater than fluid density which may represent hemangiomas/lymphangiomas. Pancreas: Mild atrophic pancreas with prominence of the pancreatic duct measuring5 mm at the pancreatic head Kidneys and Adrenals: The adrenals are normal. Subcentimeter hypoattenuating lesions are notedin the kidneys which are too small to be characterized but likely represent cysts. No hydronephrosis. No renal calculi. Gastrointestinal: Moderate size hiatal hernia. There is significant dilatation of thelarge bowel containing large stool burden. Mesentery/Peritoneum/Retroperitoneum: No free intraperitoneal air or fluid. No lymphadenopathy. Pelvic Structures: The bladder is distended containing contrast. Normal prostate. Vasculature: The aorta is atherosclerotic. Bones and Soft tissues: Bone windows demonstrate no suspicious lytic or blastic lesions. Chronic appearing compression deformity of the L3 vertebral body with 50 % andno retropulsion. Degenerative changes are seen in the spine. Post surgical changes of L3-L4 and laminectomy and posterior spinal fusion. There is severe lumbar kyphosis at this level. Grade 1 retrolisthesis of L4 onL5. Diffuse osteopenia Impression 1. No acute visceral, vascular, or osseus injury identified in thechest, abdomen, or pelvis. 2. Fluid noted in the right mainstem bronchus consistent withaspiration. There is consolidation of the left lower lobe containing airbronchograms concerning for aspiration/pneumonia. 3. Dilated common bile duct with intrahepatic biliary dilatation. Nonemergent MRI with MRCP could be performed for further evaluation. 4. Moderate hiatal hernia with distended fluid-filled esophagus with esophageal wall thickening which can be seen in setting ofgastroesophageal reflux/esophagitis. Report dictated by Bryon Watson MD([employer] [place]). Viviana Brizuela MD have personally reviewed and interpreted this examination/study. > Interpreting Provider: Viviana Rain MD on 08/16/2024 5:01 PM Cresencio Gonzalez MD CT ORDERABLES * CT Angio Lower Extremity Right (08/16/2024 6:58 AM CLEANING AND MAINTENANCE WORKER) Anatomical Region Laterality Modality Lower Extremity Computed Tomogra phy 08/16/2024 7:57 AM CLEANING AND MAINTENANCE WORKER Impressions 08/16/2024 5:06 PM CLEANING AND MAINTENANCE WORKER IMPRESSION: Three-vessel runoff of bilateral lower extremity arteries to the level of ankle. Of note, the dorsalis pedis and tibialis posterior arteries are diminutive bilaterally likely secondary to diffuse spasm but patent without evidence of contrast extravasation to suggest arterial injury or active bleeding. > Dictated by Felix Awad MD ([employer] [place]). Viviana Brizuela MD have personally reviewed and interpreted this examination/study. > Interpreting Provider: Viviana Rain MD on 08/16/2024 5:06 PM Narrative 08/16/2024 5:06 PM CLEANING AND MAINTENANCE WORKER PROCEDURE: ??CT ANGIO LOWER EXTREMITY RIGHT, CT ANGIO LOWER EXTREMITY LEFT, DATE/TIME OF EXAM: ??08/16/2024 7:20 AM, LOCATION ??[facility] INDICATION: W10.8XXA: Fall (on) (from) other stairs and steps, initial encounter Ordering Provider Reason For Exam: ??trauma, no doppler DPT/PT (LE) pulses b/l COMPARISON: Simultaneously obtained CT of abdomen and pelvis on 08/16/2024 at 6:45 AM. TECHNIQUE: CT angiography of the bilateral lower extremities was performed following the uneventful administration of 100 mL of Isovue 370 intravenous contrast according to standard protocol. Three dimensional postprocessing was performed by the technologist and sent to the workstation for review. FINDINGS: Right common iliac artery: The imaged right distal common femoral artery is atherosclerotic but patent without significant focal stenosis. Right internal iliac artery: Atherosclerotic with mild multifocal stenoses. Right external iliac artery: Atherosclerotic with mild multifocal stenoses. Right common femoral artery: Atherosclerotic with mild multifocal stenoses. Right profunda femoris artery: Atherosclerotic but patent without significant focal stenosis. Right superficial femoral artery: Atherosclerotic with mild multifocal stenoses. Right popliteal artery: Atherosclerotic with mild multifocal stenoses. Right anterior tibial artery: Atherosclerotic with mild multifocal stenoses. This vessel becomes diminutive at the level of distal leg before crossing the ankle with the dorsalis pedis artery poorly visualized. Right tibioperoneal trunk: Patent without significant focal stenosis. Right posterior tibial artery: Patent without significant focal stenosis. This vessel crosses the ankle and supplies the plantar artery. Right peroneal artery: Patent without significant focal stenosis. Left common iliac artery: The imaged left distal common femoral artery is atherosclerotic with mild multifocal stenoses. Left internal iliac artery: Atherosclerotic with mild multifocal stenoses. Left external iliac artery: Atherosclerotic with mild multifocal stenoses. Left common femoral artery: Atherosclerotic with mild multifocal stenoses. Left profunda femoris artery: Atherosclerotic but patent without significant focal stenosis. Left superficial femoral artery: Atherosclerotic with mild multifocal stenoses. Left popliteal artery: Patent without significant focal stenosis. Left anterior tibial artery: Atherosclerotic with mild multifocal stenoses. This vessel becomes diminutive at the level of distal leg before crossing the ankle with the dorsalis pedis artery poorly visualized. Left tibioperoneal trunk: Patent without significant focal stenosis. Left posterior tibial artery: Patent without significant focal stenosis. This vessel crosses the ankle and supplies the plantar artery. Left peroneal artery: Patent without significant focal stenosis. Soft tissues: Normal. Procedure Note Viviana Rain MD - 08/16/2024 PROCEDURE: CT ANGIO LOWER EXTREMITY RIGHT, CT ANGIO LOWER EXTREMITYLEFT, DATE/TIME OF EXAM: 08/16/2024 7:20 AM, LOCATION [facility] INDICATION: W10.8XXA: Fall (on) (from) other stairs and steps, initial encounter Ordering Provider Reason For Exam: trauma, no doppler DPT/PT (LE)pulses b/l COMPARISON: Simultaneously obtained CT of abdomen and pelvis on08/16/2024 at 6:45 AM. TECHNIQUE: CT angiography of the bilateral lower extremities wasperformed following the uneventful administration of 100 mL of Isovue 370intravenous contrast according to standard protocol. Three dimensionalpostprocessing was performed by the technologist and sent to the workstation for[employer]. FINDINGS: Right common iliac artery: The imaged right distal common femoral arteryis atherosclerotic but patent without significant focal stenosis. Right internal iliac artery: Atherosclerotic with mild multifocalstenoses. Right external iliac artery: Atherosclerotic with mild multifocalstenoses. Right common femoral artery: Atherosclerotic with mild multifocalstenoses. Right profunda femoris artery: Atherosclerotic but patent without significant focal stenosis. Right superficial femoral artery: Atherosclerotic with mild multifocal stenoses. Right popliteal artery: Atherosclerotic with mild multifocal stenoses. Right anterior tibial artery: Atherosclerotic with mild multifocal stenoses. This vessel becomes diminutive at the level of distal legbefore crossing the ankle with the dorsalis pedis artery poorly visualized. Right tibioperoneal trunk: Patent without significant focal stenosis. Right posterior tibial artery: Patent without significant focalstenosis. This vessel crosses the ankle and supplies the plantar artery. Right peroneal artery: Patent without significant focal stenosis. Left common iliac artery: The imaged left distal common femoral arteryis atherosclerotic with mild multifocal stenoses. Left internal iliac artery: Atherosclerotic with mild multifocalstenoses. Left external iliac artery: Atherosclerotic with mild multifocalstenoses. Left common femoral artery: Atherosclerotic with mild multifocalstenoses. Left profunda femoris artery: Atherosclerotic but patent without significant focal stenosis. Left superficial femoral artery: Atherosclerotic with mild multifocal stenoses. Left popliteal artery: Patent without significant focal stenosis. Left anterior tibial artery: Atherosclerotic with mild multifocalstenoses. This vessel becomes diminutive at the level of distal leg beforecrossing the ankle with the dorsalis pedis artery poorly visualized. Left tibioperoneal trunk: Patent without significant focal stenosis. Left posterior tibial artery: Patent without significant focal stenosis. This vessel crosses the ankle and supplies the plantar artery. Left peroneal artery: Patent without significant focal stenosis. Soft tissues: Normal. IMPRESSION: Three-vessel runoff of bilateral lower extremity arteries to the levelof ankle. Of note, the dorsalis pedis and tibialis posterior arteries are diminutive bilaterally likely secondary to diffuse spasm but patentwithout evidence of contrast extravasation to suggest arterial injury or active bleeding. > Dictated by Felix Awad MD ([place]). Viviana Brizuela MD have personally reviewed and interpreted this examination/study. > Interpreting Provider: Viviana Rain MD on 08/16/2024 5:06 PM Chet Henning MD CT ORDERABLES * CT Angio Lower Extremity Left (08/16/2024 6:58 AM CLEANING AND MAINTENANCE WORKER) Anatomical Region Laterality Modality Lower Extremity Computed Tomogra phy 08/16/2024 7:57 AM CLEANING AND MAINTENANCE WORKER Impressions 08/16/2024 5:06 PM CLEANING AND MAINTENANCE WORKER IMPRESSION: Three-vessel runoff of bilateral lower extremity arteries to the level of ankle. Of note, the dorsalis pedis and tibialis posterior arteries are diminutive bilaterally likely secondary to diffuse spasm but patent without evidence of contrast extravasation to suggest arterial injury or active bleeding. > Dictated by Felix Awad MD ([place]). Viviana Brizuela MD have personally reviewed and interpreted this examination/study. > Interpreting Provider: Viviana Rain MD on 08/16/2024 5:06 PM Narrative 08/16/2024 5:06 PM CLEANING AND MAINTENANCE WORKER PROCEDURE: ??CT ANGIO LOWER EXTREMITY RIGHT, CT ANGIO LOWER EXTREMITY LEFT, DATE/TIME OF EXAM: ??08/16/2024 7:20 AM, LOCATION ??[facility] INDICATION: W10.8XXA: Fall (on) (from) other stairs and steps, initial encounter Ordering Provider Reason For Exam: ??trauma, no doppler DPT/PT (LE) pulses b/l COMPARISON: Simultaneously obtained CT of abdomen and pelvis on 08/16/2024 at 6:45 AM. TECHNIQUE: CT angiography of the bilateral lower extremities was performed following the uneventful administration of 100 mL of Isovue 370 intravenous contrast according to standard protocol. Three dimensional postprocessing was performed by the technologist and sent to the workstation for review. FINDINGS: Right common iliac artery: The imaged right distal common femoral artery is atherosclerotic but patent without significant focal stenosis. Right internal iliac artery: Atherosclerotic with mild multifocal stenoses. Right external iliac artery: Atherosclerotic with mild multifocal stenoses. Right common femoral artery: Atherosclerotic with mild multifocal stenoses. Right profunda femoris artery: Atherosclerotic but patent without significant focal stenosis. Right superficial femoral artery: Atherosclerotic with mild multifocal stenoses. Right popliteal artery: Atherosclerotic with mild multifocal stenoses. Right anterior tibial artery: Atherosclerotic with mild multifocal stenoses. This vessel becomes diminutive at the level of distal leg before crossing the ankle with the dorsalis pedis artery poorly visualized. Right tibioperoneal trunk: Patent without significant focal stenosis. Right posterior tibial artery: Patent without significant focal stenosis. This vessel crosses the ankle and supplies the plantar artery. Right peroneal artery: Patent without significant focal stenosis. Left common iliac artery: The imaged left distal common femoral artery is atherosclerotic with mild multifocal stenoses. Left internal iliac artery: Atherosclerotic with mild multifocal stenoses. Left external iliac artery: Atherosclerotic with mild multifocal stenoses. Left common femoral artery: Atherosclerotic with mild multifocal stenoses. Left profunda femoris artery: Atherosclerotic but patent without significant focal stenosis. Left superficial femoral artery: Atherosclerotic with mild multifocal stenoses. Left popliteal artery: Patent without significant focal stenosis. Left anterior tibial artery: Atherosclerotic with mild multifocal stenoses. This vessel becomes diminutive at the level of distal leg before crossing the ankle with the dorsalis pedis artery poorly visualized. Left tibioperoneal trunk: Patent without significant focal stenosis. Left posterior tibial artery: Patent without significant focal stenosis. This vessel crosses the ankle and supplies the plantar artery. Left peroneal artery: Patent without significant focal stenosis. Soft tissues: Normal. Procedure Note Viviana Rain MD - 08/16/2024 PROCEDURE: CT ANGIO LOWER EXTREMITY RIGHT, CT ANGIO LOWER EXTREMITYLEFT, DATE/TIME OF EXAM: 08/16/2024 7:20 AM, LOCATION [facility] INDICATION: W10.8XXA: Fall (on) (from) other stairs and steps, initial encounter Ordering Provider Reason For Exam: trauma, no doppler DPT/PT (LE)pulses b/l COMPARISON: Simultaneously obtained CT of abdomen and pelvis on08/16/2024 at 6:45 AM. TECHNIQUE: CT angiography of the bilateral lower extremities wasperformed following the uneventful administration of 100 mL of Isovue 370intravenous contrast according to standard protocol. Three dimensionalpostprocessing was performed by the technologist and sent to the workstation forreview. FINDINGS: Right common iliac artery: The imaged right distal common femoral arteryis atherosclerotic but patent without significant focal stenosis. Right internal iliac artery: Atherosclerotic with mild multifocalstenoses. Right external iliac artery: Atherosclerotic with mild multifocalstenoses. Right common femoral artery: Atherosclerotic with mild multifocalstenoses. Right profunda femoris artery: Atherosclerotic but patent without significant focal stenosis. Right superficial femoral artery: Atherosclerotic with mild multifocal stenoses. Right popliteal artery: Atherosclerotic with mild multifocal stenoses. Right anterior tibial artery: Atherosclerotic with mild multifocal stenoses. This vessel becomes diminutive at the level of distal legbefore crossing the ankle with the dorsalis pedis artery poorly visualized. Right tibioperoneal trunk: Patent without significant focal stenosis. Right posterior tibial artery: Patent without significant focalstenosis. This vessel crosses the ankle and supplies the plantar artery. Right peroneal artery: Patent without significant focal stenosis. Left common iliac artery: The imaged left distal common femoral arteryis atherosclerotic with mild multifocal stenoses. Left internal iliac artery: Atherosclerotic with mild multifocalstenoses. Left external iliac artery: Atherosclerotic with mild multifocalstenoses. Left common femoral artery: Atherosclerotic with mild multifocalstenoses. Left profunda femoris artery: Atherosclerotic but patent without significant focal stenosis. Left superficial femoral artery: Atherosclerotic with mild multifocal stenoses. Left popliteal artery: Patent without significant focal stenosis. Left anterior tibial artery: Atherosclerotic with mild multifocalstenoses. This vessel becomes diminutive at the level of distal leg beforecrossing the ankle with the dorsalis pedis artery poorly visualized. Left tibioperoneal trunk: Patent without significant focal stenosis. Left posterior tibial artery: Patent without significant focal stenosis. This vessel crosses the ankle and supplies the plantar artery. Left peroneal artery: Patent without significant focal stenosis. Soft tissues: Normal. IMPRESSION: Three-vessel runoff of bilateral lower extremity arteries to the levelof ankle. Of note, the dorsalis pedis and tibialis posterior arteries are diminutive bilaterally likely secondary to diffuse spasm but patentwithout evidence of contrast extravasation to suggest arterial injury or active bleeding. > Dictated by Felix Awad MD ([employer] [place]). I, Viviana Rain MD have personally reviewed and interpreted this examination/study. > Interpreting Provider: Viviana Rain MD on 08/16/2024 5:06 PM Chet Henning MD CT ORDERABLES * CT LUMBAR SPINE WO CONTRAST - T/L-spine trauma, Spine fracture (08/16/2024 6:58 AM CLEANING AND MAINTENANCE WORKER) Anatomical Region Laterality Modality Spine Computed Tomogra phy 08/16/2024 6:28 AM CLEANING AND MAINTENANCE WORKER Impressions 08/16/2024 10:30 AM CLEANING AND MAINTENANCE WORKER IMPRESSION: 1.No acute intracranial hemorrhage, midline shift, or significant mass effect. 2.Evaluation of the spine is limited due to diffuse osteopenia and motion and streak artifact, within these exam limitations, assessment is made: No acute fracture visualized in the cervical, thoracic spine. Age indeterminant anterior compression fracture deformity of L3, favored to be chronic this area is largely obscured by streak artifact. L3-4 posterior lumbar fusion appears to be intact. 3.The separately dictated same day CT chest, abdomen and pelvis contain additional intrathoracic and intra-abdominal findings. Report dictated by Rafi Vicente MD ([employer] [place]). I, Ruby Villanueva MD have personally reviewed and interpreted this examination/study. > Interpreting Provider: Ruby Villanueva MD on 08/16/2024 10:30 AM Narrative 08/16/2024 10:30 AM CLEANING AND MAINTENANCE WORKER PROCEDURE: ??CT HEAD WO CONTRAST, CT LUMBAR SPINE WO CONTRAST, CT THORACIC SPINE WO CONTRAST, CT CERVICAL SPINE WO CONTRAST, DATE/TIME OF EXAM: 08/16/2024 7:20 AM, LOCATION ??[facility] INDICATION: Trauma EXAMINATION: 1.Computed tomography (CT) of the head without contrast 2.CT of the cervical spine without contrast 3.CT of the thoracic spine without contrast 4.CT of the lumbar spine without contrast ADDITIONAL CLINICAL INFORMATION: Ordering Provider Reason For Exam: ??Trauma Technologist Note: ??None Additional: ??None. TECHNIQUE: CT of the head and cervical spine was performed without contrast according to standard protocol. Reformatted axial, sagittal, and coronal images of the thoracic and lumbar spine were obtained by the technologist from a concurrently performed body CT and sent to the workstation for review. CT dose reduction technique was used, including Automated Exposure Control. COMPARISON: No prior study is available for comparison at the time of this dictation. FINDINGS: Accounting for the presence of intravascular contrast which reduces the sensitivity to detect subtle intracranial hemorrhage, no distinct acute intra- or extra-axial fluid collections are identified. There is mild cerebral volume loss with associated ex vacuo ventricular dilatation. The basilar cisterns are patent. No mass effect or midline shift is seen. The rai-white matter differentiation is normal. Periventricular white matter hypoattenuation is indicative of chronic small vessel ischemic disease. There is vascular calcification of the carotid siphons and V4 segments of the vertebral arteries. No acute calvarial fracture is identified. The orbits appear normal. The paranasal sinuses are clear.. The mastoid air cells are clear. Cerumen is seen in the right external auditory canal. No soft tissue abnormality is identified. The patient is edentulous. Brain injury guidelines: Skull fracture: No Subdural hematoma: No subdural hematoma. Epidural hematoma: No epidural hematoma. Intraparenchymal hemorrhage: No intraparenchymal hemorrhage. Subarachnoid hemorrhage: No subarachnoid hemorrhage. Intraventricular hemorrhage: No. Midline shift: No. Cervical spine: Exaggerated cervical lordosis. Vertebral bodies are normal in height without evidence of acute fracture within exam limitations. Moderate diffuse osteopenia and motion artifact limits evaluation for subtle fractures. Other than middle atlantoaxial joint osteoarthritis, the craniocervical junction appears normal. There is mild degenerative disc disease. There is mild-moderate central canal stenosis at multiple levels due to posterior disc bulge. There are varying degrees of moderate-severe facet osteoarthritis. There are varying degrees of advanced uncovertebral joint osteoarthritis with the same degree of neural foraminal stenosis at these levels. There is atherosclerotic calcification of the carotid bifurcations. Thoracic spine: There is dextrocurvature of the thoracic spine. Moderate diffuse osteopenia, this in addition to some motion artifact evaluation for subtle fractures. Subtle osteoporotic height loss of T6, T7, T8 and possibly T9. Vertebral bodies are otherwise normal in height without evidence of acute fracture. The intervertebral discs appear normal. No central canal stenosis is seen. The facets appear normal. No neural foraminal stenosis is seen. There is consolidative opacity in the posterior left lower lobe concerning for pneumonia or aspiration. Right lower lobe atelectasis and/or scarring. Secretions are seen layering dependently in the right mainstem bronchus representing aspiration. Atherosclerotic calcification of the aorta and its branch vessels. There is thickening of the esophagus most prominent in the distal portion which may represent esophagitis. Noncalcified atherosclerosis or clot is seen in the posterior descending thoracic aorta at approximately level T9 (series 5 image 134). Lumbar spine: Severe diffuse osteopenia, streak artifact from fusion hardware in L3 and L4 significantly limit evaluation for fractures, within exam limitations: There is levocurvature and severe angular kyphosis of the lumbar spine centered at L3. There is grade 1 retrolisthesis of L4 and L5. Age indeterminant anterior compression fracture deformity of L3, although favoring chronic. No bony retropulsion, no extension to the posterior elements. There is advanced degenerative disc disease. Evaluation of the central canal and the neural foramina is limited due to streak artifact from fusion hardware, of the visualized vertebral levels, no high-grade central canal or neural foraminal stenosis is seen. There is advanced facet osteoarthritis at multiple levels. There are varying degrees of neural foraminal stenosis at multiple levels. There is atherosclerotic calcification of the abdominal aorta and its branch vessels. Tortuosity of the abdominal aorta. Procedure Note Ruby Villanueva MD - 08/16/2024 PROCEDURE: CT HEAD WO CONTRAST, CT LUMBAR SPINE WO CONTRAST, CTTHORACIC SPINE WO CONTRAST, CT CERVICAL SPINE WO CONTRAST, DATE/TIME OF EXAM: 08/16/2024 7:20 AM, LOCATION [facility] INDICATION: Trauma EXAMINATION: 1.Computed tomography (CT) of the head without contrast 2.CT of the cervical spine without contrast 3.CT of the thoracic spine without contrast 4.CT of the lumbar spine without contrast ADDITIONAL CLINICAL INFORMATION: Ordering Provider Reason For Exam: Trauma Technologist Note: None Additional: None. TECHNIQUE: CT of the head and cervical spine was performed withoutcontrast according to standard protocol. Reformatted axial, sagittal, and coronal images of the thoracic and lumbar spine were obtained by thetechnologist from a concurrently performed body CT and sent to the workstation for review. CT dose reduction technique was used, including AutomatedExposure Control. COMPARISON: No prior study is available for comparison at the time ofthis dictation. FINDINGS: Accounting for the presence of intravascular contrast which reduces the sensitivity to detect subtle intracranial hemorrhage, no distinct acute intra- or extra-axial fluid collections are identified. There is mild cerebral volume loss with associated ex vacuo ventricular dilatation.The basilar cisterns are patent. No mass effect or midline shift is seen.The rai-white matter differentiation is normal. Periventricular whitematter hypoattenuation is indicative of chronic small vessel ischemic disease. There is vascular calcification of the carotid siphons and V4 segmentsof the vertebral arteries. No acute calvarial fracture is identified. The orbits appear normal. The paranasal sinuses are clear.. The mastoid air cells are clear. Cerumen is seen in the right external auditory canal.No soft tissue abnormality is identified. The patient is edentulous. Brain injury guidelines: Skull fracture: No Subdural hematoma: No subdural hematoma. Epidural hematoma: No epidural hematoma. Intraparenchymal hemorrhage: No intraparenchymal hemorrhage. Subarachnoid hemorrhage: No subarachnoid hemorrhage. Intraventricular hemorrhage: No. Midline shift: No. Cervical spine: Exaggerated cervical lordosis. Vertebral bodies are normal in height without evidence of acute fracture within exam limitations. Moderate diffuse osteopenia and motion artifact limits evaluation for subtle fractures. Other than middle atlantoaxial joint osteoarthritis, the craniocervical junction appears normal. There is mild degenerative disc disease. There is mild-moderate central canal stenosis at multiplelevels due to posterior disc bulge. There are varying degrees ofmoderate-severe facet osteoarthritis. There are varying degrees of advanceduncovertebral joint osteoarthritis with the same degree of neural foraminal stenosisat these levels. There is atherosclerotic calcification of the carotid bifurcations. Thoracic spine: There is dextrocurvature of the thoracic spine. Moderate diffuse osteopenia, this in addition to some motion artifact evaluation forsubtle fractures. Subtle osteoporotic height loss of T6, T7, T8 and possiblyT9. Vertebral bodies are otherwise normal in height without evidence ofacute fracture. The intervertebral discs appear normal. No central canalstenosis is seen. The facets appear normal. No neural foraminal stenosis is seen. There is consolidative opacity in the posterior left lower lobeconcerning for pneumonia or aspiration. Right lower lobe atelectasis and/orscarring. Secretions are seen layering dependently in the right mainstem bronchus representing aspiration. Atherosclerotic calcification of the aorta andits branch vessels. There is thickening of the esophagus most prominent inthe distal portion which may represent esophagitis. Noncalcified atherosclerosis or clot is seen in the posterior descending thoracicaorta at approximately level T9 (series 5 image 134). Lumbar spine: Severe diffuse osteopenia, streak artifact from fusion hardware in L3and L4 significantly limit evaluation for fractures, within examlimitations: There is levocurvature and severe angular kyphosis of the lumbar spine centered at L3. There is grade 1 retrolisthesis of L4 and L5. Age indeterminant anterior compression fracture deformity of L3, although favoring chronic. No bony retropulsion, no extension to the posterior elements. There is advanced degenerative disc disease. Evaluation of the central canal and the neural foramina is limited due to streak artifact from fusion hardware, of the visualized vertebral levels, no high-grade central canal or neural foraminal stenosis is seen. There is advancedfacet osteoarthritis at multiple levels. There are varying degrees of neural foraminal stenosis at multiple levels. There is atherosclerotic calcification of the abdominal aorta and its branch vessels. Tortuosityof the abdominal aorta. IMPRESSION: 1.No acute intracranial hemorrhage, midline shift, or significant mass effect. 2.Evaluation of the spine is limited due to diffuse osteopenia andmotion and streak artifact, within these exam limitations, assessment is made:No acute fracture visualized in the cervical, thoracic spine. Age indeterminant anterior compression fracture deformity of L3, favored renee chronic this area is largely obscured by streak artifact. L3-4 posterior lumbar fusion appears to be intact. 3.The separately dictated same day CT chest, abdomen and pelvis contain additional intrathoracic and intra-abdominal findings. Report dictated by Rafi Vicente MD ([employer] [place]). I, Ruby Villanueva MD have personally reviewed and interpretedthis examination/study. > Interpreting Provider: Ruby Villanueva MD on 08/16/2024 10:30AM Cresencio Gonzalez MD CT ORDERABLES * CT THORACIC SPINE WO CONTRAST - T/L-spine trauma, spine fracture (08/16/2024 6:58 AM CLEANING AND MAINTENANCE WORKER) Anatomical Region Laterality Modality Spine Computed Tomogra phy 08/16/2024 6:28 AM CLE[employer]ING AND MAINTENANCE WORKER Impressions 08/16/2024 10:30 AM CLEANING AND MAINTENANCE WORKER IMPRESSION: 1.No acute intracranial hemorrhage, midline shift, or significant mass effect. 2.Evaluation of the spine is limited due to diffuse osteopenia and motion and streak artifact, within these exam limitations, assessment is made: No acute fracture visualized in the cervical, thoracic spine. Age indeterminant anterior compression fracture deformity of L3, favored to be chronic this area is largely obscured by streak artifact. L3-4 posterior lumbar fusion appears to be intact. 3.The separately dictated same day CT chest, abdomen and pelvis contain additional intrathoracic and intra-abdominal findings. Report dictated by Rafi Vicente MD ([employer] [place]). I, Ruby Villanueva MD have personally reviewed and interpreted this examination/study. > Interpreting Provider: Ruby Villanueva MD on 08/16/2024 10:30 AM Narrative 08/16/2024 10:30 AM CLE[employer]ING AND MAINTENANCE WORKER PROCEDURE: ??CT HEAD WO CONTRAST, CT LUMBAR SPINE WO CONTRAST, CT THORACIC SPINE WO CONTRAST, CT CERVICAL SPINE WO CONTRAST, DATE/TIME OF EXAM: 08/16/2024 7:20 AM, LOCATION ??[facility] INDICATION: Trauma EXAMINATION: 1.Computed tomography (CT) of the head without contrast 2.CT of the cervical spine without contrast 3.CT of the thoracic spine without contrast 4.CT of the lumbar spine without contrast ADDITIONAL CLINICAL INFORMATION: Ordering Provider Reason For Exam: ??Trauma Technologist Note: ??None Additional: ??None. TECHNIQUE: CT of the head and cervical spine was performed without contrast according to standard protocol. Reformatted axial, sagittal, and coronal images of the thoracic and lumbar spine were obtained by the technologist from a concurrently performed body CT and sent to the workstation for review. CT dose reduction technique was used, including Automated Exposure Control. COMPARISON: No prior study is available for comparison at the time of this dictation. FINDINGS: Accounting for the presence of intravascular contrast which reduces the sensitivity to detect subtle intracranial hemorrhage, no distinct acute intra- or extra-axial fluid collections are identified. There is mild cerebral volume loss with associated ex vacuo ventricular dilatation. The basilar cisterns are patent. No mass effect or midline shift is seen. The rai-white matter differentiation is normal. Periventricular white matter hypoattenuation is indicative of chronic small vessel ischemic disease. There is vascular calcification of the carotid siphons and V4 segments of the vertebral arteries. No acute calvarial fracture is identified. The orbits appear normal. The paranasal sinuses are clear.. The mastoid air cells are clear. Cerumen is seen in the right external auditory canal. No soft tissue abnormality is identified. The patient is edentulous. Brain injury guidelines: Skull fracture: No Subdural hematoma: No subdural hematoma. Epidural hematoma: No epidural hematoma. Intraparenchymal hemorrhage: No intraparenchymal hemorrhage. Subarachnoid hemorrhage: No subarachnoid hemorrhage. Intraventricular hemorrhage: No. Midline shift: No. Cervical spine: Exaggerated cervical lordosis. Vertebral bodies are normal in height without evidence of acute fracture within exam limitations. Moderate diffuse osteopenia and motion artifact limits evaluation for subtle fractures. Other than middle atlantoaxial joint osteoarthritis, the craniocervical junction appears normal. There is mild degenerative disc disease. There is mild-moderate central canal stenosis at multiple levels due to posterior disc bulge. There are varying degrees of moderate-severe facet osteoarthritis. There are varying degrees of advanced uncovertebral joint osteoarthritis with the same degree of neural foraminal stenosis at these levels. There is atherosclerotic calcification of the carotid bifurcations. Thoracic spine: There is dextrocurvature of the thoracic spine. Moderate diffuse osteopenia, this in addition to some motion artifact evaluation for subtle fractures. Subtle osteoporotic height loss of T6, T7, T8 and possibly T9. Vertebral bodies are otherwise normal in height without evidence of acute fracture. The intervertebral discs appear normal. No central canal stenosis is seen. The facets appear normal. No neural foraminal stenosis is seen. There is consolidative opacity in the posterior left lower lobe concerning for pneumonia or aspiration. Right lower lobe atelectasis and/or scarring. Secretions are seen layering dependently in the right mainstem bronchus representing aspiration. Atherosclerotic calcification of the aorta and its branch vessels. There is thickening of the esophagus most prominent in the distal portion which may represent esophagitis. Noncalcified atherosclerosis or clot is seen in the posterior descending thoracic aorta at approximately level T9 (series 5 image 134). Lumbar spine: Severe diffuse osteopenia, streak artifact from fusion hardware in L3 and L4 significantly limit evaluation for fractures, within exam limitations: There is levocurvature and severe angular kyphosis of the lumbar spine centered at L3. There is grade 1 retrolisthesis of L4 and L5. Age indeterminant anterior compression fracture deformity of L3, although favoring chronic. No bony retropulsion, no extension to the posterior elements. There is advanced degenerative disc disease. Evaluation of the central canal and the neural foramina is limited due to streak artifact from fusion hardware, of the visualized vertebral levels, no high-grade central canal or neural foraminal stenosis is seen. There is advanced facet osteoarthritis at multiple levels. There are varying degrees of neural foraminal stenosis at multiple levels. There is atherosclerotic calcification of the abdominal aorta and its branch vessels. Tortuosity of the abdominal aorta. Procedure Note Ruby Villanueva MD - 08/16/2024 PROCEDURE: CT HEAD WO CONTRAST, CT LUMBAR SPINE WO CONTRAST, CTTHORACIC SPINE WO CONTRAST, CT CERVICAL SPINE WO CONTRAST, DATE/TIME OF EXAM: 08/16/2024 7:20 AM, LOCATION [facility] INDICATION: Trauma EXAMINATION: 1.Computed tomography (CT) of the head without contrast 2.CT of the cervical spine without contrast 3.CT of the thoracic spine without contrast 4.CT of the lumbar spine without contrast ADDITIONAL CLINICAL INFORMATION: Ordering Provider Reason For Exam: Trauma Technologist Note: None Additional: None. TECHNIQUE: CT of the head and cervical spine was performed withoutcontrast according to standard protocol. Reformatted axial, sagittal, and coronal images of the thoracic and lumbar spine were obtained by thetechnologist from a concurrently performed body CT and sent to the workstation for review. CT dose reduction technique was used, including AutomatedExposure Control. COMPARISON: No prior study is available for comparison at the time ofthis dictation. FINDINGS: Accounting for the presence of intravascular contrast which reduces the sensitivity to detect subtle intracranial hemorrhage, no distinct acute intra- or extra-axial fluid collections are identified. There is mild cerebral volume loss with associated ex vacuo ventricular dilatation.The basilar cisterns are patent. No mass effect or midline shift is seen.The rai-white matter differentiation is normal. Periventricular whitematter hypoattenuation is indicative of chronic small vessel ischemic disease. There is vascular calcification of the carotid siphons and V4 segmentsof the vertebral arteries. No acute calvarial fracture is identified. The orbits appear normal. The paranasal sinuses are clear.. The mastoid air cells are clear. Cerumen is seen in the right external auditory canal.No soft tissue abnormality is identified. The patient is edentulous. Brain injury guidelines: Skull fracture: No Subdural hematoma: No subdural hematoma. Epidural hematoma: No epidural hematoma. Intraparenchymal hemorrhage: No intraparenchymal hemorrhage. Subarachnoid hemorrhage: No subarachnoid hemorrhage. Intraventricular hemorrhage: No. Midline shift: No. Cervical spine: Exaggerated cervical lordosis. Vertebral bodies are normal in height without evidence of acute fracture within exam limitations. Moderate diffuse osteopenia and motion artifact limits evaluation for subtle fractures. Other than middle atlantoaxial joint osteoarthritis, the craniocervical junction appears normal. There is mild degenerative disc disease. There is mild-moderate central canal stenosis at multiplelevels due to posterior disc bulge. There are varying degrees ofmoderate-severe facet osteoarthritis. There are varying degrees of advanceduncovertebral joint osteoarthritis with the same degree of neural foraminal stenosisat these levels. There is atherosclerotic calcification of the carotid bifurcations. Thoracic spine: There is dextrocurvature of the thoracic spine. Moderate diffuse osteopenia, this in addition to some motion artifact evaluation forsubtle fractures. Subtle osteoporotic height loss of T6, T7, T8 and possiblyT9. Vertebral bodies are otherwise normal in height without evidence ofacute fracture. The intervertebral discs appear normal. No central canalstenosis is seen. The facets appear normal. No neural foraminal stenosis is seen. There is consolidative opacity in the posterior left lower lobeconcerning for pneumonia or aspiration. Right lower lobe atelectasis and/orscarring. Secretions are seen layering dependently in the right mainstem bronchus representing aspiration. Atherosclerotic calcification of the aorta andits branch vessels. There is thickening of the esophagus most prominent inthe distal portion which may represent esophagitis. Noncalcified atherosclerosis or clot is seen in the posterior descending thoracicaorta at approximately level T9 (series 5 image 134). Lumbar spine: Severe diffuse osteopenia, streak artifact from fusion hardware in L3and L4 significantly limit evaluation for fractures, within examlimitations: There is levocurvature and severe angular kyphosis of the lumbar spine centered at L3. There is grade 1 retrolisthesis of L4 and L5. Age indeterminant anterior compression fracture deformity of L3, although favoring chronic. No bony retropulsion, no extension to the posterior elements. There is advanced degenerative disc disease. Evaluation of the central canal and the neural foramina is limited due to streak artifact from fusion hardware, of the visualized vertebral levels, no high-grade central canal or neural foraminal stenosis is seen. There is advancedfacet osteoarthritis at multiple levels. There are varying degrees of neural foraminal stenosis at multiple levels. There is atherosclerotic calcification of the abdominal aorta and its branch vessels. Tortuosityof the abdominal aorta. IMPRESSION: 1.No acute intracranial hemorrhage, midline shift, or significant mass effect. 2.Evaluation of the spine is limited due to diffuse osteopenia andmotion and streak artifact, within these exam limitations, assessment is made:No acute fracture visualized in the cervical, thoracic spine. Age indeterminant anterior compression fracture deformity of L3, favored renee chronic this area is largely obscured by streak artifact. L3-4 posterior lumbar fusion appears to be intact. 3.The separately dictated same day CT chest, abdomen and pelvis contain additional intrathoracic and intra-abdominal findings. Report dictated by Rafi Vicente MD ([employer] [place]). Ruby Brizuela MD have personally reviewed and interpretedthis examination/study. > Interpreting Provider: Ruby Villanueva MD on 08/16/2024 10:30AM Cresencio Gonzalez MD CT ORDERABLES * CT CERVICAL SPINE WO CONTRAST - C-Spine Trauma, Spine fracture (08/16/2024 6:58 AM CLEANING AND MAINTENANCE WORKER) Anatomical Region Laterality Modality Spine Computed Tomogra phy 08/16/2024 6:28 AM CLE[employer]ING AND MAINTENANCE WORKER Impressions 08/16/2024 10:30 AM CLE[employer]ING AND MAINTENANCE WORKER IMPRESSION: 1.No acute intracranial hemorrhage, midline shift, or significant mass effect. 2.Evaluation of the spine is limited due to diffuse osteopenia and motion and streak artifact, within these exam limitations, assessment is made: No acute fracture visualized in the cervical, thoracic spine. Age indeterminant anterior compression fracture deformity of L3, favored to be chronic this area is largely obscured by streak artifact. L3-4 posterior lumbar fusion appears to be intact. 3.The separately dictated same day CT chest, abdomen and pelvis contain additional intrathoracic and intra-abdominal findings. Report dictated by Rafi Vicente MD ([employer] [place]). Ruby Brizuela MD have personally reviewed and interpreted this examination/study. > Interpreting Provider: Ruby Villanueva MD on 08/16/2024 10:30 AM Narrative 08/16/2024 10:30 AM CLE[employer]ING AND MAINTENANCE WORKER PROCEDURE: ??CT HEAD WO CONTRAST, CT LUMBAR SPINE WO CONTRAST, CT THORACIC SPINE WO CONTRAST, CT CERVICAL SPINE WO CONTRAST, DATE/TIME OF EXAM: 08/16/2024 7:20 AM, LOCATION ??[facility] INDICATION: Trauma EXAMINATION: 1.Computed tomography (CT) of the head without contrast 2.CT of the cervical spine without contrast 3.CT of the thoracic spine without contrast 4.CT of the lumbar spine without contrast ADDITIONAL CLINICAL INFORMATION: Ordering Provider Reason For Exam: ??Trauma Technologist Note: ??None Additional: ??None. TECHNIQUE: CT of the head and cervical spine was performed without contrast according to standard protocol. Reformatted axial, sagittal, and coronal images of the thoracic and lumbar spine were obtained by the technologist from a concurrently performed body CT and sent to the workstation for review. CT dose reduction technique was used, including Automated Exposure Control. COMPARISON: No prior study is available for comparison at the time of this dictation. FINDINGS: Accounting for the presence of intravascular contrast which reduces the sensitivity to detect subtle intracranial hemorrhage, no distinct acute intra- or extra-axial fluid collections are identified. There is mild cerebral volume loss with associated ex vacuo ventricular dilatation. The basilar cisterns are patent. No mass effect or midline shift is seen. The rai-white matter differentiation is normal. Periventricular white matter hypoattenuation is indicative of chronic small vessel ischemic disease. There is vascular calcification of the carotid siphons and V4 segments of the vertebral arteries. No acute calvarial fracture is identified. The orbits appear normal. The paranasal sinuses are clear.. The mastoid air cells are clear. Cerumen is seen in the right external auditory canal. No soft tissue abnormality is identified. The patient is edentulous. Brain injury guidelines: Skull fracture: No Subdural hematoma: No subdural hematoma. Epidural hematoma: No epidural hematoma. Intraparenchymal hemorrhage: No intraparenchymal hemorrhage. Subarachnoid hemorrhage: No subarachnoid hemorrhage. Intraventricular hemorrhage: No. Midline shift: No. Cervical spine: Exaggerated cervical lordosis. Vertebral bodies are normal in height without evidence of acute fracture within exam limitations. Moderate diffuse osteopenia and motion artifact limits evaluation for subtle fractures. Other than middle atlantoaxial joint osteoarthritis, the craniocervical junction appears normal. There is mild degenerative disc disease. There is mild-moderate central canal stenosis at multiple levels due to posterior disc bulge. There are varying degrees of moderate-severe facet osteoarthritis. There are varying degrees of advanced uncovertebral joint osteoarthritis with the same degree of neural foraminal stenosis at these levels. There is atherosclerotic calcification of the carotid bifurcations. Thoracic spine: There is dextrocurvature of the thoracic spine. Moderate diffuse osteopenia, this in addition to some motion artifact evaluation for subtle fractures. Subtle osteoporotic height loss of T6, T7, T8 and possibly T9. Vertebral bodies are otherwise normal in height without evidence of acute fracture. The intervertebral discs appear normal. No central canal stenosis is seen. The facets appear normal. No neural foraminal stenosis is seen. There is consolidative opacity in the posterior left lower lobe concerning for pneumonia or aspiration. Right lower lobe atelectasis and/or scarring. Secretions are seen layering dependently in the right mainstem bronchus representing aspiration. Atherosclerotic calcification of the aorta and its branch vessels. There is thickening of the esophagus most prominent in the distal portion which may represent esophagitis. Noncalcified atherosclerosis or clot is seen in the posterior descending thoracic aorta at approximately level T9 (series 5 image 134). Lumbar spine: Severe diffuse osteopenia, streak artifact from fusion hardware in L3 and L4 significantly limit evaluation for fractures, within exam limitations: There is levocurvature and severe angular kyphosis of the lumbar spine centered at L3. There is grade 1 retrolisthesis of L4 and L5. Age indeterminant anterior compression fracture deformity of L3, although favoring chronic. No bony retropulsion, no extension to the posterior elements. There is advanced degenerative disc disease. Evaluation of the central canal and the neural foramina is limited due to streak artifact from fusion hardware, of the visualized vertebral levels, no high-grade central canal or neural foraminal stenosis is seen. There is advanced facet osteoarthritis at multiple levels. There are varying degrees of neural foraminal stenosis at multiple levels. There is atherosclerotic calcification of the abdominal aorta and its branch vessels. Tortuosity of the abdominal aorta. Procedure Note Ruby Villanueva MD - 08/16/2024 PROCEDURE: CT HEAD WO CONTRAST, CT LUMBAR SPINE WO CONTRAST, CTTHORACIC SPINE WO CONTRAST, CT CERVICAL SPINE WO CONTRAST, DATE/TIME OF EXAM: 08/16/2024 7:20 AM, LOCATION [facility] INDICATION: Trauma EXAMINATION: 1.Computed tomography (CT) of the head without contrast 2.CT of the cervical spine without contrast 3.CT of the thoracic spine without contrast 4.CT of the lumbar spine without contrast ADDITIONAL CLINICAL INFORMATION: Ordering Provider Reason For Exam: Trauma Technologist Note: None Additional: None. TECHNIQUE: CT of the head and cervical spine was performed withoutcontrast according to standard protocol. Reformatted axial, sagittal, and coronal images of the thoracic and lumbar spine were obtained by thetechnologist from a concurrently performed body CT and sent to the workstation for review. CT dose reduction technique was used, including AutomatedExposure Control. COMPARISON: No prior study is available for comparison at the time ofthis dictation. FINDINGS: Accounting for the presence of intravascular contrast which reduces the sensitivity to detect subtle intracranial hemorrhage, no distinct acute intra- or extra-axial fluid collections are identified. There is mild cerebral volume loss with associated ex vacuo ventricular dilatation.The basilar cisterns are patent. No mass effect or midline shift is seen.The rai-white matter differentiation is normal. Periventricular whitematter hypoattenuation is indicative of chronic small vessel ischemic disease. There is vascular calcification of the carotid siphons and V4 segmentsof the vertebral arteries. No acute calvarial fracture is identified. The orbits appear normal. The paranasal sinuses are clear.. The mastoid air cells are clear. Cerumen is seen in the right external auditory canal.No soft tissue abnormality is identified. The patient is edentulous. Brain injury guidelines: Skull fracture: No Subdural hematoma: No subdural hematoma. Epidural hematoma: No epidural hematoma. Intraparenchymal hemorrhage: No intraparenchymal hemorrhage. Subarachnoid hemorrhage: No subarachnoid hemorrhage. Intraventricular hemorrhage: No. Midline shift: No. Cervical spine: Exaggerated cervical lordosis. Vertebral bodies are normal in height without evidence of acute fracture within exam limitations. Moderate diffuse osteopenia and motion artifact limits evaluation for subtle fractures. Other than middle atlantoaxial joint osteoarthritis, the craniocervical junction appears normal. There is mild degenerative disc disease. There is mild-moderate central canal stenosis at multiplelevels due to posterior disc bulge. There are varying degrees ofmoderate-severe facet osteoarthritis. There are varying degrees of advanceduncovertebral joint osteoarthritis with the same degree of neural foraminal stenosisat these levels. There is atherosclerotic calcification of the carotid bifurcations. Thoracic spine: There is dextrocurvature of the thoracic spine. Moderate diffuse osteopenia, this in addition to some motion artifact evaluation forsubtle fractures. Subtle osteoporotic height loss of T6, T7, T8 and possiblyT9. Vertebral bodies are otherwise normal in height without evidence ofacute fracture. The intervertebral discs appear normal. No central canalstenosis is seen. The facets appear normal. No neural foraminal stenosis is seen. There is consolidative opacity in the posterior left lower lobeconcerning for pneumonia or aspiration. Right lower lobe atelectasis and/orscarring. Secretions are seen layering dependently in the right mainstem bronchus representing aspiration. Atherosclerotic calcification of the aorta andits branch vessels. There is thickening of the esophagus most prominent inthe distal portion which may represent esophagitis. Noncalcified atherosclerosis or clot is seen in the posterior descending thoracicaorta at approximately level T9 (series 5 image 134). Lumbar spine: Severe diffuse osteopenia, streak artifact from fusion hardware in L3and L4 significantly limit evaluation for fractures, within examlimitations: There is levocurvature and severe angular kyphosis of the lumbar spine centered at L3. There is grade 1 retrolisthesis of L4 and L5. Age indeterminant anterior compression fracture deformity of L3, although favoring chronic. No bony retropulsion, no extension to the posterior elements. There is advanced degenerative disc disease. Evaluation of the central canal and the neural foramina is limited due to streak artifact from fusion hardware, of the visualized vertebral levels, no high-grade central canal or neural foraminal stenosis is seen. There is advancedfacet osteoarthritis at multiple levels. There are varying degrees of neural foraminal stenosis at multiple levels. There is atherosclerotic calcification of the abdominal aorta and its branch vessels. Tortuosityof the abdominal aorta. IMPRESSION: 1.No acute intracranial hemorrhage, midline shift, or significant mass effect. 2.Evaluation of the spine is limited due to diffuse osteopenia andmotion and streak artifact, within these exam limitations, assessment is made:No acute fracture visualized in the cervical, thoracic spine. Age indeterminant anterior compression fracture deformity of L3, favored renee chronic this area is largely obscured by streak artifact. L3-4 posterior lumbar fusion appears to be intact. 3.The separately dictated same day CT chest, abdomen and pelvis contain additional intrathoracic and intra-abdominal findings. Report dictated by Rafi Vicente MD ([place]). I, Ruby Villanueva MD have personally reviewed and interpretedthis examination/study. > Interpreting Provider: Ruby Villanueva MD on 08/16/2024 10:30AM Cresencio Gonzalez MD CT ORDERABLES * CT HEAD WO CONTRAST - Head Trauma, CSF leak, mental status changes (08/16/2024 6:58 AM CLEANING AND MAINTENANCE WORKER) Anatomical Region Laterality Modality Head Computed Tomogra phy 08/16/2024 6:28 AM CLEANING AND MAINTENANCE WORKER Impressions 08/16/2024 10:30 AM CLEANING AND MAINTENANCE WORKER IMPRESSION: 1.No acute intracranial hemorrhage, midline shift, or significant mass effect. 2.Evaluation of the spine is limited due to diffuse osteopenia and motion and streak artifact, within these exam limitations, assessment is made: No acute fracture visualized in the cervical, thoracic spine. Age indeterminant anterior compression fracture deformity of L3, favored to be chronic this area is largely obscured by streak artifact. L3-4 posterior lumbar fusion appears to be intact. 3.The separately dictated same day CT chest, abdomen and pelvis contain additional intrathoracic and intra-abdominal findings. Report dictated by Rafi Vicente MD ([place]). I, Ruby Villanueva MD have personally reviewed and interpreted this examination/study. > Interpreting Provider: Ruby Villanueva MD on 08/16/2024 10:30 AM Narrative 08/16/2024 10:30 AM CLEANING AND MAINTENANCE WORKER PROCEDURE: ??CT HEAD WO CONTRAST, CT LUMBAR SPINE WO CONTRAST, CT THORACIC SPINE WO CONTRAST, CT CERVICAL SPINE WO CONTRAST, DATE/TIME OF EXAM: 08/16/2024 7:20 AM, LOCATION ??[facility] INDICATION: Trauma EXAMINATION: 1.Computed tomography (CT) of the head without contrast 2.CT of the cervical spine without contrast 3.CT of the thoracic spine without contrast 4.CT of the lumbar spine without contrast ADDITIONAL CLINICAL INFORMATION: Ordering Provider Reason For Exam: ??Trauma Technologist Note: ??None Additional: ??None. TECHNIQUE: CT of the head and cervical spine was performed without contrast according to standard protocol. Reformatted axial, sagittal, and coronal images of the thoracic and lumbar spine were obtained by the technologist from a concurrently performed body CT and sent to the workstation for review. CT dose reduction technique was used, including Automated Exposure Control. COMPARISON: No prior study is available for comparison at the time of this dictation. FINDINGS: Accounting for the presence of intravascular contrast which reduces the sensitivity to detect subtle intracranial hemorrhage, no distinct acute intra- or extra-axial fluid collections are identified. There is mild cerebral volume loss with associated ex vacuo ventricular dilatation. The basilar cisterns are patent. No mass effect or midline shift is seen. The rai-white matter differentiation is normal. Periventricular white matter hypoattenuation is indicative of chronic small vessel ischemic disease. There is vascular calcification of the carotid siphons and V4 segments of the vertebral arteries. No acute calvarial fracture is identified. The orbits appear normal. The paranasal sinuses are clear.. The mastoid air cells are clear. Cerumen is seen in the right external auditory canal. No soft tissue abnormality is identified. The patient is edentulous. Brain injury guidelines: Skull fracture: No Subdural hematoma: No subdural hematoma. Epidural hematoma: No epidural hematoma. Intraparenchymal hemorrhage: No intraparenchymal hemorrhage. Subarachnoid hemorrhage: No subarachnoid hemorrhage. Intraventricular hemorrhage: No. Midline shift: No. Cervical spine: Exaggerated cervical lordosis. Vertebral bodies are normal in height without evidence of acute fracture within exam limitations. Moderate diffuse osteopenia and motion artifact limits evaluation for subtle fractures. Other than middle atlantoaxial joint osteoarthritis, the craniocervical junction appears normal. There is mild degenerative disc disease. There is mild-moderate central canal stenosis at multiple levels due to posterior disc bulge. There are varying degrees of moderate-severe facet osteoarthritis. There are varying degrees of advanced uncovertebral joint osteoarthritis with the same degree of neural foraminal stenosis at these levels. There is atherosclerotic calcification of the carotid bifurcations. Thoracic spine: There is dextrocurvature of the thoracic spine. Moderate diffuse osteopenia, this in addition to some motion artifact evaluation for subtle fractures. Subtle osteoporotic height loss of T6, T7, T8 and possibly T9. Vertebral bodies are otherwise normal in height without evidence of acute fracture. The intervertebral discs appear normal. No central canal stenosis is seen. The facets appear normal. No neural foraminal stenosis is seen. There is consolidative opacity in the posterior left lower lobe concerning for pneumonia or aspiration. Right lower lobe atelectasis and/or scarring. Secretions are seen layering dependently in the right mainstem bronchus representing aspiration. Atherosclerotic calcification of the aorta and its branch vessels. There is thickening of the esophagus most prominent in the distal portion which may represent esophagitis. Noncalcified atherosclerosis or clot is seen in the posterior descending thoracic aorta at approximately level T9 (series 5 image 134). Lumbar spine: Severe diffuse osteopenia, streak artifact from fusion hardware in L3 and L4 significantly limit evaluation for fractures, within exam limitations: There is levocurvature and severe angular kyphosis of the lumbar spine centered at L3. There is grade 1 retrolisthesis of L4 and L5. Age indeterminant anterior compression fracture deformity of L3, although favoring chronic. No bony retropulsion, no extension to the posterior elements. There is advanced degenerative disc disease. Evaluation of the central canal and the neural foramina is limited due to streak artifact from fusion hardware, of the visualized vertebral levels, no high-grade central canal or neural foraminal stenosis is seen. There is advanced facet osteoarthritis at multiple levels. There are varying degrees of neural foraminal stenosis at multiple levels. There is atherosclerotic calcification of the abdominal aorta and its branch vessels. Tortuosity of the abdominal aorta. Procedure Note Ruby Villanueva MD - 08/16/2024 PROCEDURE: CT HEAD WO CONTRAST, CT LUMBAR SPINE WO CONTRAST, CTTHORACIC SPINE WO CONTRAST, CT CERVICAL SPINE WO CONTRAST, DATE/TIME OF EXAM: 08/16/2024 7:20 AM, LOCATION [facility] INDICATION: Trauma EXAMINATION: 1.Computed tomography (CT) of the head without contrast 2.CT of the cervical spine without contrast 3.CT of the thoracic spine without contrast 4.CT of the lumbar spine without contrast ADDITIONAL CLINICAL INFORMATION: Ordering Provider Reason For Exam: Trauma Technologist Note: None Additional: None. TECHNIQUE: CT of the head and cervical spine was performed withoutcontrast according to standard protocol. Reformatted axial, sagittal, and coronal images of the thoracic and lumbar spine were obtained by thetechnologist from a concurrently performed body CT and sent to the workstation for review. CT dose reduction technique was used, including AutomatedExposure Control. COMPARISON: No prior study is available for comparison at the time ofthis dictation. FINDINGS: Accounting for the presence of intravascular contrast which reduces the sensitivity to detect subtle intracranial hemorrhage, no distinct acute intra- or extra-axial fluid collections are identified. There is mild cerebral volume loss with associated ex vacuo ventricular dilatation.The basilar cisterns are patent. No mass effect or midline shift is seen.The rai-white matter differentiation is normal. Periventricular whitematter hypoattenuation is indicative of chronic small vessel ischemic disease. There is vascular calcification of the carotid siphons and V4 segmentsof the vertebral arteries. No acute calvarial fracture is identified. The orbits appear normal. The paranasal sinuses are clear.. The mastoid air cells are clear. Cerumen is seen in the right external auditory canal.No soft tissue abnormality is identified. The patient is edentulous. Brain injury guidelines: Skull fracture: No Subdural hematoma: No subdural hematoma. Epidural hematoma: No epidural hematoma. Intraparenchymal hemorrhage: No intraparenchymal hemorrhage. Subarachnoid hemorrhage: No subarachnoid hemorrhage. Intraventricular hemorrhage: No. Midline shift: No. Cervical spine: Exaggerated cervical lordosis. Vertebral bodies are normal in height without evidence of acute fracture within exam limitations. Moderate diffuse osteopenia and motion artifact limits evaluation for subtle fractures. Other than middle atlantoaxial joint osteoarthritis, the craniocervical junction appears normal. There is mild degenerative disc disease. There is mild-moderate central canal stenosis at multiplelevels due to posterior disc bulge. There are varying degrees ofmoderate-severe facet osteoarthritis. There are varying degrees of advanceduncovertebral joint osteoarthritis with the same degree of neural foraminal stenosisat these levels. There is atherosclerotic calcification of the carotid bifurcations. Thoracic spine: There is dextrocurvature of the thoracic spine. Moderate diffuse osteopenia, this in addition to some motion artifact evaluation forsubtle fractures. Subtle osteoporotic height loss of T6, T7, T8 and possiblyT9. Vertebral bodies are otherwise normal in height without evidence ofacute fracture. The intervertebral discs appear normal. No central canalstenosis is seen. The facets appear normal. No neural foraminal stenosis is seen. There is consolidative opacity in the posterior left lower lobeconcerning for pneumonia or aspiration. Right lower lobe atelectasis and/orscarring. Secretions are seen layering dependently in the right mainstem bronchus representing aspiration. Atherosclerotic calcification of the aorta andits branch vessels. There is thickening of the esophagus most prominent inthe distal portion which may represent esophagitis. Noncalcified atherosclerosis or clot is seen in the posterior descending thoracicaorta at approximately level T9 (series 5 image 134). Lumbar spine: Severe diffuse osteopenia, streak artifact from fusion hardware in L3and L4 significantly limit evaluation for fractures, within examlimitations: There is levocurvature and severe angular kyphosis of the lumbar spine centered at L3. There is grade 1 retrolisthesis of L4 and L5. Age indeterminant anterior compression fracture deformity of L3, although favoring chronic. No bony retropulsion, no extension to the posterior elements. There is advanced degenerative disc disease. Evaluation of the central canal and the neural foramina is limited due to streak artifact from fusion hardware, of the visualized vertebral levels, no high-grade central canal or neural foraminal stenosis is seen. There is advancedfacet osteoarthritis at multiple levels. There are varying degrees of neural foraminal stenosis at multiple levels. There is atherosclerotic calcification of the abdominal aorta and its branch vessels. Tortuosityof the abdominal aorta. IMPRESSION: 1.No acute intracranial hemorrhage, midline shift, or significant mass effect. 2.Evaluation of the spine is limited due to diffuse osteopenia andmotion and streak artifact, within these exam limitations, assessment is made:No acute fracture visualized in the cervical, thoracic spine. Age indeterminant anterior compression fracture deformity of L3, favored renee chronic this area is largely obscured by streak artifact. L3-4 posterior lumbar fusion appears to be intact. 3.The separately dictated same day CT chest, abdomen and pelvis contain additional intrathoracic and intra-abdominal findings. Report dictated by Rafi Vicente MD ([place]). I, Ruby Villanueva MD have personally reviewed and interpretedthis examination/study. > Interpreting Provider: Ruby Villanueva MD on 08/16/2024 10:30AM Cresencio Gonzalez MD CT ORDERABLES * XR CHEST 1VW PORTABLE (08/16/2024 6:11 AM CLEANING AND MAINTENANCE WORKER) Anatomical Region Laterality Modality Chest Digital Radiogra phy 08/16/2024 6:04 AM CLEANING AND MAINTENANCE WORKER Narrative 08/16/2024 2:29 PM CLEANING AND MAINTENANCE WORKER PROCEDURE: ??XR CHEST 1VW PORTABLE, DATE/TIME OF EXAM: ??08/16/2024 5:44 AM, LOCATION ??[facility] INDICATION: Trauma ADDITIONAL CLINICAL INFORMATION: Ordering Provider Reason For Exam: Comparison: No prior study is available for comparison at the time of this dictation. FINDINGS/IMPRESSION: Severe left rotation of the patient. Right basilar atelectasis. Left mid and lower lung field patchy airspace opacity which may represent pneumonia, aspiration, hemorrhage or contusion in this setting of trauma. No right pleural effusion, the left costophrenic angle is obscured and may represent a small pleural effusion. No pneumothorax. Patient rotation limits evaluation of heart and mediastinal contours. Probable hiatal hernia. No displaced fractures visualized. Report dictated by Rafi Vicente MD ([place]). Mason Brizuela have personally reviewed and interpreted this examination/study. > Interpreting Provider: Mason Lucero on 08/16/2024 2:29 PM Procedure Note Mason Lucero MD - 08/16/2024 PROCEDURE: XR CHEST 1VW PORTABLE, DATE/TIME OF EXAM: 08/16/2024 5:44AM, LOCATION [facility] INDICATION: Trauma ADDITIONAL CLINICAL INFORMATION: Ordering Provider Reason For Exam: Comparison: No prior study is available for comparison at the time ofthis dictation. FINDINGS/IMPRESSION: Severe left rotation of the patient. Right basilar atelectasis. Left mid and lower lung field patchy airspace opacity which may represent pneumonia, aspiration, hemorrhage orcontusion in this setting of trauma. No right pleural effusion, the leftcostophrenic angle is obscured and may represent a small pleural effusion. No pneumothorax. Patient rotation limits evaluation of heart andmediastinal contours. Probable hiatal hernia. No displaced fractures visualized. Report dictated by Rafi Vicente MD ([place]). Mason Brizuela have personally reviewed and interpreted this examination/study. > Interpreting Provider: Mason Lucero on 08/16/2024 2:29 PM Cresencio Gonzalez MD DIAGNOSTIC IMAGING ORDERABLES * PTT [facility] (08/16/2024 5:50 AM CLEANING AND MAINTENANCE WORKER) APTT 27.4 23.0 - 38.4 Seconds 08/16/2024 6:38 AM CLEANING AND MAINTENANCE WORKER [facility] Comment:Suggested therapeuti c range for full dose I.V. unfractionated heparin therapy for venous thromboembolism is 71 to 109 seconds. Blood BLOOD SPECIMEN / Unknown Venipuncture / Unknown 08/16/2024 5:50 AM CLEANING AND MAINTENANCE WORKER 08/16/2024 6:12 AM CLEANING AND MAINTENANCE WORKER Cresencio Gonzalez MD LAB - COAGULATION ORDERABLES Performing Organization Address City/[facility]/ZIP Co de Phone Number [address] [address], [place] [phone] * TYPE + SCREEN PANEL (08/16/2024 5:50 AM CLEANING AND MAINTENANCE WORKER) Antibody Screen NEG 6:49 AM CLEANING AND MAINTENANCE WORKER [facility] BLOOD B[facility] LAB ABO Rh B POS 08/16/2024 6:49 AM CLEANING AND MAINTENANCE WORKER [facility] Blood Bank BLOOD SPECIMEN / Unknown Venipuncture / Unknown 08/16/2024 5:50 AM CLEANING AND MAINTENANCE WORKER 08/16/2024 6:13 AM CLEANING AND MAINTENANCE WORKER Cresencio Gonzalez MD LAB - BLOOD BANK O RDERABLES Performing Organization Address [facility] Co de Phone Number [facility] BLOOD [facility] [address] [place] [phone], [place] [phone] * LIPASE BLOOD (08/16/2024 5:50 AM CLEANING AND MAINTENANCE WORKER) Lipase 13 8 - 78 U/L 08/16/2024 6:31 AM CLEANING AND MAINTENANCE WORKER [facility] Blood BLOOD SPECIMEN / Unknown Venipuncture / Unknown 08/16/2024 5:50 AM CLEANING AND MAINTENANCE WORKER 08/16/2024 6:10 AM CLEANING AND MAINTENANCE WORKER Narrative [facility] - 08/16/2024 6:31 AM CLEANING AND MAINTENANCE WORKER Lipase results from the [employer] Al[employer] analyzer may not be comparable with other methodologies. Cresencio Gonzalez MD LAB - CHEMISTRY OR DERABLES Performing Organization Address City/[facility]/ZIP Co de Phone Number [address] [address], [place] [phone] * ALCOHOL ETHYL BLOOD (08/16/2024 5:50 AM [facility]) Ethanol (mg/dL) <10 <10 mg/dL 6:31 AM [facility] Ethanol Calculated (g/dL) <0.010 <=0.010 g/dL 08/16/2024 6:31 AM [facility] Blood BLOOD SPECIMEN / Unknown Venipuncture / Unknown 08/16/2024 5:50 AM CLEANING AND MAINTENANCE WORKER 08/16/2024 6:10 AM [facility] Narrative [facility] - 08/16/2024 6:31 AM [facility] Ethanol Interp <10: None Detected. Depression of HOME INSPECTOR: >100 mg/dl Potentially Critical: >250 mg/dl Potentially Fatal >400 mg/dl Ethanol in the patient's blood will contribute to the osmolar gap. Ethanol's contribution to the osmolar gap can be estimated by dividing the concentration of ethanol in mg/dL by 4.6. This test is for clinical use only and does not equal a JF for legal purposes. Cresencio Gonzalez MD LAB - CHEMISTRY OR DERABLES [facility] [address] [place] [address], [facility] [phone] from Last 3 Months Advance Directives * Full Code (Latest Code Status on File) Date Activated Date Inactivated Comments 08/16/2024 6:25 PM 08/20/2024 1:32 PM Care Teams Communications Programmer Relationship Specialty Start Date End Date Mark Carmichael DO [address] [place] [phone] PCP - General Family Medicine 08/16/24
--- OUTSIDE RECORDS SUMMARY | 2024-08-20 13:47 | XMS_ITS | Clinical Summary ---
Author Organization [facility] Address [address] [place] [address] Care Team Providers [employer] Utility Worker Name Role Phone Melchorleeanne Markelvia BACK Primary Care Provider [phone] Source Comments [facility] [employer],non-owned Affiliates and Associated Physician Practices is amultiple site organization consisting of ambulatory clinics and hospital sitesin [place], [place] and [place]. This disclosure is being madepursuant to the Care Everywhere program and may not contain all information available regarding this patient. Last updated 18.[facility] [employer] Allergies Active Allergy Reactions Criticality Noted Date Comments Nsaids Unknown,GI Discomfor t,Shortness of Breath High 02/10/2016 Prednisone Unknown,Shortness of Breath High 07/25/20 22 Medications * Be aware that medications may [...] 08/16/2024 UTI (urinary tract infection) 08/16/2024 08/16/2024 Encounters Date Type Department Care Team Description 4 2:30 PM NURSING SUPPORT WORKER - 4 3:30 PM NURSING SUPPORT WORKER Surgery [facility] ENDOSCOPY [facility] [place] [address] Raymond Miller MD ESOPHAGOGASTRODUODENOSCOPY (EGD) /ESOPHAGOSCOPY WITH ULTRASOUND (EUS) 4 11:27 AM NURSING SUPPORT WORKER Anesthesia Event [facility] ENDOSCOPY [address] [place] [address] Willian Cheung MD McGee, Jeffrey, Anes Asst 4 5:26 AM NURSING SUPPORT WORKER - 4 11:57 AM NURSING SUPPORT WORKER Hospital Encounter [facility] 8S ACUTE [address] [place] [address] Chet Henning MD Yogendran, MD Carlos Finch, MD Amna Ware, MD Jamal Bates, MD Cristiana Farr Takaaki, MD Emergency Medicine Discharge Disposition: Home or Self Care 4 Travel from Last 3 Months Immunizations Name Administration Dates Next Due TDAP [...] and heating? Not hard at all 08/20/2024 [facility] Occupat ional [facility] - Occupational Stress [...] any time in the past [address] [facility], were you homeless or living in a intermediate (including now)? No 08/20/2024 Sex and Gender Information Value Date Recorded Sex Assigned at Not on file Gender Identity Not on file Sexual Orientation Not on file Last Filed Vital Signs Vital Sign Reading Time Taken Comments Blood Pressure 164/85 08/20/2024 11:05 AM NURSING SUPPORT WORKER Pulse 60 08/20/2024 11:05 AM NURSING SUPPORT WORKER Temperature 36.8 ??C (98.3 ??F) 08/20/2024 11:[address] Respiratory Rate 20 08/20/2024 11:05 AM NURSING SUPPORT WORKER Oxygen Saturation 97% 08/20/2024 11:05 AM NURSING SUPPORT WORKER Inhaled Oxygen Concentration - - Weight 74.5 kg (164 lb 3.2 oz) 08/18/2024 4:00 A M NURSING SUPPORT WORKER Height 182.9 cm (6') 08/16/2024 5:26 AM NURSING SUPPORT WORKER Body Mass Index 22.27 08/16/2024 5:26 AM NURSING SUPPORT WORKER Plan of Treatment Upcoming Encounters Date Type Department Care Team (Late st Contact Info) Description 01/19/2025 11:00 AM CDT Office Visit [facility], [place] [address] [place] [address] [place] [phone] Health Maintenance Due Date Last Done Comments COLOGUARD (AGES 45-75) - COLON CA SCREENING 1955 COLON MONITORING 1955 COLONOSCOPY - COLON CA SCREENING 1955 CT COLONOGRAPHY - COLON CA SCREENING 1955 Colorectal Cancer Screening 1955 FIT - COLON CA SCREENING 1955 FLEX SIG - COLON CA SCREENING 1955 LIPID TESTING 1955 PNEUMOCOCCAL VACCINE 65+ (1 of 2 - PCV) 1963 HEPATITIS C SCREENING 05/02/1975 DTAP/TDAP/TD VACCINES (1 - Tdap) 1976 ZOSTER VACCINE (1 of 2) 2007 HEPATITIS B VACCINE (1 of 3 - Risk 3-dose series) 2017 Respiratory Syncytial Virus (RSV) Vaccine Pt: or over 60 yrs (1 - Risk 60-74 years 1-dose series) 2017 DEPRESSION SCREENING 09/02/2023 MEDICARE AWV ? CALENDAR YEAR 2023 COVID-19 VACCINE ( season) 2024 06/14/2021, 11/26/2020, 11/03/2020 INFLUENZA VACCINE (#1) 2024 2, 06/14/2021, 07/18/2020, Additional history exists HIB VACCINE Aged Out No longer eligi ble based on patient's age to complete this topic HPV VACCINE Aged Out No longer eligi ble based on patient's age to complete this topic MENINGOCOCCAL VACCINE Aged Out No yogi hansa eligible based on patient's age to complete this topic Procedures Procedure Name Priority Date/Time Associated Diagnosis Comments CBC W AUTO DIFFERENTIAL Routine 08/20/2024 5:49 AM NURSING SUPPORT WORKER COMPREHENSIVE METABOLIC PANEL Routine 08/20/2024 5:49 AM NURSING SUPPORT WORKER MAGNESIUM BLOOD Routine 08/20/2024 5:49 AM NURSING SUPPORT WORKER PHOSPHORUS BLOOD Routine 08/20/2024 5:49 AM NURSING SUPPORT WORKER ENDOSCOPIC ULTRASONOGRAPHY, GI Routine 08/19/2024 11:04 AM NURSING SUPPORT WORKER CBC W AUTO DIFFERENTIAL Routine 08/19/2024 7:43 AM NURSING SUPPORT WORKER COMPREHENSIVE METABOLIC PANEL Routine 08/19/2024 7:43 AM NURSING SUPPORT WORKER MAGNESIUM BLOOD Routine 08/19/2024 7:43 AM NURSING SUPPORT WORKER PHOSPHORUS BLOOD Routine 08/19/2024 7:43 AM NURSING SUPPORT WORKER LACTIC ACID BLOOD Routine 08/18/2024 6:4 0 AM NURSING SUPPORT WORKER CBC W AUTO DIFFERENTIAL Routine 08/18/2024 6:40 AM NURSING SUPPORT WORKER COMPREHENSIVE METABOLIC PANEL Routine 08/18/2024 6:40 AM NURSING SUPPORT WORKER MAGNESIUM BLOOD Routine 08/18/2024 6:40 AM NURSING SUPPORT WORKER PHOSPHORUS BLOOD Routine 08/18/2024 6:40 AM NURSING SUPPORT WORKER PT-INR [facility] Routine 08/18/2024 6:40 AM NURSING SUPPORT WORKER ECHO COMPLETE W CONTRAST Routine 08/17/2024 2:37 PM NURSING SUPPORT WORKER Shock (HCC) EKG 12-LEAD Routine 08/17/2024 12:32 PM NURSING SUPPORT WORKER Elevated CK WILIAM (acute kidney injury) (HCC) BASIC METABOLIC PANEL (CALCIUM TOTAL) STAT 08/17/2024 5:13 AM NURSING SUPPORT WORKER CBC W/O DIFFERENTIAL STAT 08/17/2024 5:13 AM NURSING SUPPORT WORKER LACTIC ACID BLOOD STAT 08/17/2024 5:1 3 AM NURSING SUPPORT WORKER TSH Routine 08/17/2024 4:07 AM NURSING SUPPORT WORKER SYPHILIS ANTIBODY CASCADING REFLEX AM Draw 08/17/2024 4:07 AM NURSING SUPPORT WORKER VITAMIN B12 AM Draw 08/17/2024 4:07 AM NURSING SUPPORT WORKER HEMOGLOBIN A1C Routine 08/17/2024 4:07 AM NURSING SUPPORT WORKER LACTIC ACID BLOOD Routine 08/17/2024 4:0 7 AM NURSING SUPPORT WORKER CK BLOOD Routine 08/17/2024 4:07 AM NURSING SUPPORT WORKER CBC W AUTO DIFFERENTIAL Routine 08/17/2024 4:07 AM NURSING SUPPORT WORKER COMPREHENSIVE METABOLIC PANEL Routine 08/17/2024 4:07 AM NURSING SUPPORT WORKER MAGNESIUM BLOOD Routine 08/17/2024 4:07 AM NURSING SUPPORT WORKER PHOSPHORUS BLOOD Routine 08/17/2024 4:07 AM NURSING SUPPORT WORKER PT-INR [facility] Routine 08/17/2024 4:07 AM NURSING SUPPORT WORKER GLUCOSE - POINT OF CARE Routine 08/17/2024 4:05 AM NURSING SUPPORT WORKER GLUCOSE - POINT OF CARE Routine 08/17/2024 12:29 AM NURSING SUPPORT WORKER EKG 12-LEAD STAT 08/16/2024 10:17 PM NURSING SUPPORT WORKER Elevated CK GLUCOSE - POINT OF CARE Routine 08/16/2024 10:14 PM NURSING SUPPORT WORKER DRUG SCREEN EXPANDED TOXICOLOGY URINE PANEL Routine 08/16/2024 10:01 PM NURSING SUPPORT WORKER CULTURE BLOOD Timed 08/16/2024 8:33 PM NURSING SUPPORT WORKER CULTURE BLOOD Timed 08/16/2024 8:15 PM NURSING SUPPORT WORKER CULTURE URINE Routine 08/16/2024 7:46 PM NURSING SUPPORT WORKER PHOSPHORUS BLOOD STAT 08/16/2024 7:05 PM NURSING SUPPORT WORKER MAGNESIUM BLOOD STAT 08/16/2024 7:05 PM NURSING SUPPORT WORKER LACTIC ACID BLOOD STAT 08/16/2024 7:0 5 PM NURSING SUPPORT WORKER COMPREHENSIVE METABOLIC PANEL STAT 08/16/2024 7:05 PM NURSING SUPPORT WORKER CBC W AUTO DIFFERENTIAL STAT 08/16/2024 7:05 PM NURSING SUPPORT WORKER BLOOD GASES ART + COOX PANEL Routine 08/16/2024 7:01 PM NURSING SUPPORT WORKER LACTIC ACID BLOOD REFLEX TO REPEAT STAT 08/16/2024 3:18 PM NURSING SUPPORT WORKER BASIC METABOLIC PANEL (CALCIUM TOTAL) STAT 08/16/2024 10:34 AM NURSING SUPPORT WORKER CK BLOOD STAT 08/16/2024 10:34 AM NURSING SUPPORT WORKER URINE MICROSCOPIC ONLY REFLEX TO CULTURE STAT 08/16/2024 9:23 AM NURSING SUPPORT WORKER UREA NITROGEN URINE RANDOM STAT 08/16/2024 9:23 AM NURSING SUPPORT WORKER CREATININE URINE RANDOM STAT 08/16/2024 9:23 AM NURSING SUPPORT WORKER LYTES (NA K) URINE RANDOM PANEL STAT 08/16/2024 9:23 AM NURSING SUPPORT WORKER URINALYSIS REFLEX MICROSCOPIC REFLEX CULTURE STAT 08/16/2024 9:23 AM NURSING SUPPORT WORKER URINE DRUG SCREEN IMMUNOASSAY STAT 08/16/2024 9:23 AM NURSING SUPPORT WORKER HEPATIC FUNCTION PANEL STAT 8:52 AM NURSING SUPPORT WORKER ACETAMINOPHEN LEVEL STAT 08/16/2024 8 :52 AM NURSING SUPPORT WORKER TRICYCLICS SCREEN BLOOD STAT 08/16/2024 8:52 AM NURSING SUPPORT WORKER SALICYLATE LEVEL BLOOD STAT 8:52 AM NURSING SUPPORT WORKER XR PELVIS 1 OR 2VW STAT 08/16/2024 7: 20 AM NURSING SUPPORT WORKER Fall (on) (from) other stairs and steps, initial encounter CT ANGIO LOWER EXTREMITY RIGHT STAT 08/16/2024 6:58 AM NURSING SUPPORT WORKER Fall (on) (from) other stairs and steps, initial encounter CT ANGIO LOWER EXTREMITY LEFT STAT 08/16/2024 6:58 AM NURSING SUPPORT WORKER Fall (on) (from) other stairs and steps, initial encounter CT LUMBAR SPINE WO CONTRAST STAT 08/16/2024 6:58 AM NURSING SUPPORT WORKER Fall (on) (from) other stairs and steps, initial encounter CT THORACIC SPINE WO CONTRAST STAT 08/16/2024 6:58 AM NURSING SUPPORT WORKER Fall (on) (from) other stairs and steps, initial encounter CT CHEST ABDOMEN PELVIS W CONT STAT 08/16/2024 6:58 AM NURSING SUPPORT WORKER Fall (on) (from) other stairs and steps, initial encounter CT CERVICAL SPINE WO CONTRAST STAT 08/16/2024 6:58 AM NURSING SUPPORT WORKER Fall (on) (from) other stairs and steps, initial encounter CT HEAD WO CONTRAST STAT 08/16/2024 6 :58 AM NURSING SUPPORT WORKER Fall (on) (from) other stairs and steps, initial encounter XR CHEST 1VW PORTABLE STAT 08/16/2024 6:11 AM NURSING SUPPORT WORKER Fall (on) (from) other stairs and steps, initial encounter TYPE + SCREEN PANEL STAT 08/16/2024 5 :50 AM NURSING SUPPORT WORKER PT-INR [facility] STAT 08/16/2024 5:50 AM NURSING SUPPORT WORKER PTT [facility] STAT 08/16/2024 5:50 AM NURSING SUPPORT WORKER LIPASE BLOOD STAT 08/16/2024 5:50 AM NURSING SUPPORT WORKER CBC W AUTO DIFFERENTIAL STAT 08/16/2024 5:50 AM NURSING SUPPORT WORKER BASIC METABOLIC PANEL (CALCIUM TOTAL) STAT 08/16/2024 5:50 AM NURSING SUPPORT WORKER ALCOHOL ETHYL BLOOD STAT 08/16/2024 5 :50 AM NURSING SUPPORT WORKER from Last 3 Months Results * (ABNORMAL) CBC W AUTO DIFFERENTIAL (08/20/2024 5:49 AM NURSING SUPPORT WORKER) Only the most recent of6 resultswithin the time period is included. WBC 3.6(L) 4.0 - 10.7 x10E9/L 08/20/2024 6:56 AM [facility] RBC Count 3.32(L) 4.30 - 5.80 x10E12/L 08/20/2024 6:56 AM [facility] Hemoglobin 11.3(L) 13.3 - 17.5 g/dL 08/20/2024 6:56 AM [facility] Hematocrit 32.1(L) 38.7 - 51.1 % 08/20/2024 6:56 AM [facility] MCV 96.7 80.0 - 98.0 fL 08/20/2024 6:56 AM [facility] MCH 34.0(H) 26.7 - 33.6 pg 08/20/2024 6:56 AM [facility] MCHC 35.2 31.7 - 36.3 g/dL 08/20/2024 6:56 AM [facility] RDW-CV 12.2 11.3 - 14.8 % 08/20/2024 6:56 AM [facility] Platelet Count 141(L) 150 - 420 x10E9/L 08/20/2024 6:56 AM [facility] MPV 10.0 7.8 - 11.4 fL 08/20/2024 6:56 AM [facility] Neutrophil % 57.6 41.0 - 74.0 % 08/20/2024 6:56 AM [facility] Lymphocyte % 27.2 17.0 - 47.0 % 08/20/2024 6:56 AM [facility] Monocyte % 10.8 3.0 - 11.0 % 08/20/2024 6:56 AM [facility] Eosinophil % 3.3 0.0 - 7.0 % 08/20/2024 6:56 AM [facility] Basophil % 0.3 0.0 - 1.6 % 08/20/2024 6:56 AM [facility] Immature Granulocytes % 0.8 0.0 - 1.0 % 08/20/2024 6:56 AM [facility] Neutrophil Absolute 2.07 1.60 - 7.50 x10E9/L 08/20/2024 6:56 AM [facility] Lymphocyte Absolute 0.98(L) 1.00 - 4.40 x10E9/L 08/20/2024 6:56 AM [facility] Monocyte Absolute 0.39 0.15 - 1.00 x10E9/L 08/20/2024 6:56 AM [facility] Eosinophil Absolute 0.12 0.00 - 0.60 x10E9/L 08/20/2024 6:56 AM [facility] Basophil Absolute 0.01 0.00 - 0.13 x10E9/L 08/20/2024 6:56 AM [facility] Blood BLOOD SPECIMEN / Unknown Lab Venipuncture / Unknown 08/20/2024 5:49 AM NURSING SUPPORT WORKER 08/20/2024 6:35 AM NURSING SUPPORT WORKER Can Woo MD LAB - HEMATOLOGY ORD ERABLES [facility] [address] [place] [address], [facility] [phone] * (ABNORMAL) COMPREHENSIVE METABOLIC PANEL (08/20/2024 5:49 AM NURSING SUPPORT WORKER) Only the most recent of5 resultswithin the time period is included. BUN 13 7 - 26 mg/dL 08/20/2024 7:13 AM [facility] Creatinine 0.84 0.71 - 1.16 mg/dL 08/20/2024 7:13 AM [facility] Sodium 140 136 - 145 mmol/L 08/20/2024 7:13 AM [facility] Potassium 4.1 3.5 - 4.5 mmol/L 08/20/2024 7:13 AM [facility] Chloride 110(H) 98 - 107 mmol/L 08/20/2024 7:13 AM [facility] CO2 24 22 - 29 mmol/L 08/20/2024 7:13 AM [facility] Glucose 76 70 - 99 mg/dL 08/20/2024 7:13 AM [facility] Calcium 8.2(L) 8.4 - 10.2 mg/dL 08/20/2024 7:13 AM [facility] Protein Total 5.0(L) 6.0 - 8.3 g/dL 08/20/2024 7:13 AM [facility] Albumin 2.4(L) 3.4 - 5.0 g/dL 08/20/2024 7:13 AM [facility] Bilirubin Total 0.4 0.2 - 1.2 mg/dL 08/20/2024 7:13 AM [facility] Alkaline Phosphatase 44 40 - 150 U/L 08/20/2024 7:13 AM [facility] ALT 34 5 - 55 U/L 08/20/2024 7:13 AM [facility] AST 39(H) 5 - 34 U/L 08/20/2024 7:13 AM [facility] Anion Gap 6 6 - 16 08/20/2024 7:13 AM [facility] BUN/Creatinine Ratio 15 7 - 23 08/20/2024 7:13 AM [facility] Osmolality Calculated 289 275 - 295 mOsm/kg 08/20/2024 7:13 AM [facility] Albumin/Globulin Ratio 0.9(L) 1.1 - 2.3 08/20/2024 7:13 AM [facility] eGFR by CKD-EPI >90 >=90 mL/min/1.7 3 m2 08/20/2024 7:13 AM [facility] Blood BLOOD SPECIMEN / Unknown Lab Venipuncture / Unknown 08/20/2024 5:49 AM NURSING SUPPORT WORKER 08/20/2024 6:39 AM [facility] Can Woo MD LAB - CHEMISTRY BINDU BOO [facility] ([place], [place]) Organization Address City/State/[facility] Co de Phone Number [address] [address], [facility] [phone] * (ABNORMAL) PHOSPHORUS BLOOD (08/20/2024 5:49 AM NURSING SUPPORT WORKER) Only the most recent of5 resultswithin the time period is included. Phosphorus 2.6(L) 2.8 - 5.1 mg/dL 08/20/2024 7:13 AM [facility] Blood BLOOD SPECIMEN / Unknown Lab Venipuncture / Unknown 08/20/2024 5:49 AM NURSING SUPPORT WORKER 08/20/2024 6:39 AM NURSING SUPPORT WORKER Can Woo MD LAB - CHEMISTRY BINDU BOO Performing Organization Address City/[facility]/ZIP Co de Phone Number [address] [address], [facility] [phone] * MAGNESIUM BLOOD (08/20/2024 5:49 AM NURSING SUPPORT WORKER) Only the most recent of5 resultswithin the time period is included. Magnesium 1.7 1.6 - 2.6 mg/dL 08/20/2024 7:13 AM NURSING SUPPORT WORKER [facility] Blood BLOOD SPECIMEN / Unknown Lab Venipuncture / Unknown 08/20/2024 5:49 AM NURSING SUPPORT WORKER 08/20/2024 6:39 AM NURSING SUPPORT WORKER Can Woo MD LAB - CHEMISTRY BINDU BOO Performing Organization Address [facility] Co de Phone Number [address] [address], [facility] [phone] * Endoscopic Ultrasonography, GI (08/19/2024 11:04 AM NURSING SUPPORT WORKER) Report Endoscopy POC Endoscopy Department Report _ Patient Name: Ray Ashley ?Procedure Date: 08/19/2024 11:04 AM ?Date of : 1955 Classification: Inpatient ? Gender: Male Ethnicity: Not or ? Race: White _ Providers: ?Raymond Miller MD, Vasquez Be ?(Fellow) Referring MD: ? Inpatient team Procedure: ?Upper EUS Indications: [...] and ?oxygen saturations were monitored continuously. The ?[id number] was introduced through the mouth, and ?advanced [...] Procedure Code(s): ? --- Professional --- ? 77064, Esophagogastroduodenos copy, flexible, transoral; with endoscopic ? ultrasound examination limited to the esophagus, stomach or duodenum, ? and adjacent structures Diagnosis Code(s): ?--- Professional --- ?K80.20, Calculus of gallbladder without ?cholecystitis without obstruction ?K86.9, Disease of pancreas, unspecified ?K83.8, Other specified diseases of biliary tract ?R93.2, Abnormal findings on diagnostic imaging of ?liver and biliary tract CPT copyright 2021 [employer]. All rights reserved. The codes documented in this report are preliminary and upon medical biller coder review may be revised to meet current compliance requirements. Raymond Miller MD 08/19/2024 12:49:34 PM This report has been signed electronically. Note Initiated On: 08/19/2024 11:04 AM Number of Addenda: 0 ? [facility] ? [address] [place], [place] [id number] [place] [address] PROVATION 08/19/2024 11:0 4 AM NURSING SUPPORT WORKER Narrative Procedure Note Kay Isidro MD - 08/19/2024 12:50 PM CST (No note.) Oscar Zendejas MD GI PROCEDURE ORDERAB LES [facility] PROVATION * PT-INR [facility] (08/18/2024 6:40 AM NURSING SUPPORT WORKER) Only the most recent of3 resultswithin the time period is included. PT 14.2 12.1 - 14.8 Seconds 08/18/2024 7:34 AM [facility] INR 1.1 See Comment 08/18/2024 7:34 AM [facility] Comment:The suggested therap eutic range for standard coumadin (warfarin) therapy is an INR of 2.0-3.0. For high-risk patients (Mechanical Mitral Valve Prosthesis, etc.), the suggested prophylactic therapeutic range is an INR of 2.5-3.5. Blood BLOOD SPECIMEN / Unknown Lab Venipuncture / Unknown 08/18/2024 6:40 AM NURSING SUPPORT WORKER 08/18/2024 7:13 AM NURSING SUPPORT WORKER Can Woo MD LAB - COAGULATION OR DERABLES Performing Organization Address City/[facility]/ZIP Co de Phone Number [address] [address], [facility] [phone] * LACTIC ACID BLOOD (08/18/2024 6:40 AM NURSING SUPPORT WORKER) Only the most recent of4 resultswithin the time period is included. [facility] Lactic Acid-Stat 1.1 <=2.0 mmol/L 08/18/2024 7:23 AM [facility] Blood BLOOD SPECIMEN / Unknown Lab Venipuncture / Unknown 08/18/2024 6:40 AM NURSING SUPPORT WORKER 08/18/2024 6:53 AM NURSING SUPPORT WORKER Can Woo MD LAB - CHEMISTRY ORDE RABLES Performing Organization Address City/[facility]/ZIP Co de Phone Number [address] [address], [place] [phone] * ECHO COMPLETE W CONTRAST (08/17/2024 2:37 PM NURSING SUPPORT WORKER) [facility] LVOT diam 2.23 cm SSM CV FUJ [...] PACS LVOT VTI 22.255 cm SSM CV [facility] I PACS RV-farrell basal diam 3.734 cm [facility] diam Doppler 2.718 cm [facility] RVOT pk aravind 66.78 cm/s SSM CV F UJI PACS RVOT VTI 14.325 cm SSM CV [facility] I PACS LA size 3.277 cm SSM CV [facility] I PACS LA vol BP 39.403 ml [facility]SM CV [facility] I PACS RA area 11.564 cm? ? ? [facility] AV mn grad 3.382 mmHg SSM CV FU PACS AV pk aravind 135.812 cm/s SSM CV [facility] I PACS AV VTI 24.243 cm SSM CV [facility] I PACS MV A pk aravind 79.206 cm/s SSM CV F U PACS MV E pk aravind 78.034 cm/s SSM CV F U PACS MV E' lateral aravind 9.049 cm/s [facility] MV mn grad 1.355 mmHg SSM CV FU PACS MV VTI 25.365 cm SSM CV [facility] I PACS PV pk aravind 76.07 cm/s SSM CV [facility] I PACS PV VTI 13.837 cm SSM CV [facility] I PACS TAPSE 2.225 cm SSM CV [facility] I PACS TR pk aravind 260.308 cm/s SSM CV [facility] I PACS Ascending aorta 3.443 cm [facility] LA vol index 0.022 l/m? ? ? [facility] Myocardial strain charge 1 unitless [facility] CV [facility] PACS Anatomical Region Laterality Modality Ultrasound 08/17/2024 1:34 PM NURSING SUPPORT WORKER Narrative 08/18/2024 8:50 AM NURSING SUPPORT WORKER Summary ??* The left ventricle is [...] 1955 Gender: ? Male Accession #: ? [id number] Ht: ? 65 in Wt: ? 155 lb BSA: ? 1.81 m2 HR: ? 69 bpm BP: ? 127 / ? 70 mmHg Heart Rhythm: ? Sinus Rhythm Exam Date: ? 08/17/2024 1:34 PM Exam Room: ? 411 Patient Status: ? O/P Study Site: ? [facility] Quality: ? Fair Exam Type: [...] ? 1.00 ml Administered By: ? Kayley Peoples RDCS Reaction to Contrast: ? no Reason for Technically Difficult ??Study: ? lung interference, positional limitations Staff Referring Physician: ? Can Woo Ordering Provider: ? Can Woo Attending Physician: ? Can Woo Pollution Control Chemist: ? Kayley Peoples RDCS Left Ventricle ??The left ventricle is [...] Exam Date: 08/17/2024 1:34 PM Exam Room: [facility] Patient Status: O/P Study Site: [facility] Primary Location: [facility] Info Technical Quality: Fair Exam Type: ECHO [...] Definity Amount: 1.00 ml Administered By: Kayley Peoples RDCS Reaction to Contrast: no Reason for Technically Difficult Study: lung interference,positional limitations Staff Referring Physician: Can Woo Ordering Provider: Can Woo Attending Physician: Can Woo Pollution Control Chemist: Kayley Peoples RDCS Left Ventricle The left ventricle is [...] Name Value Normal CHADD G peak SL(Avg) (AWMA) -16.7 % Report Signatures Finalized by Alfredo Reyes on 08/18/2024 08:49 AM Can Woo MD ECHO CUPID * EKG 12-LEAD (08/17/2024 12:32 PM NURSING SUPPORT WORKER) Ventricular Rate 73 BPM [facility] Atrial Rate 73 BPM [facility] P-R Interval 176 ms [facility] QRS Duration ms 94 ms [facility] Q-T Interval ms 392 ms [facility] QTC Calculation (Bezet) 431 ms [facility] MUSE Calculated P [place] 46 degrees [facility] Calculated R [place] 47 degrees [facility] Calculated T [place] 29 degrees [facility] Interpretation EKG NORMAL SINUS RHYTHM NORMAL ECG Confirmed by HANANE ROSAS, KEN ([id number]) on 08/17/2024 5:44:27 PM [facility]USE 08/17/2024 12:3 2 PM NURSING SUPPORT WORKER 08/17/2024 5:44 PM NURSING SUPPORT WORKER Can Woo MD ECG ORDERABLES [facility] MUSE * (ABNORMAL) CBC W/O DIFFERENTIAL (08/17/2024 5:13 AM [facility]) WBC 5.8 4.0 - 10.7 x10E9/L 08/17/2024 5:51 AM [facility] RBC Count 3.53(L) 4.30 - 5.80 x10E12/L 08/17/2024 5:51 AM [facility] Hemoglobin 12.0(L) 13.3 - 17.5 g/dL 08/17/2024 5:51 AM [facility] Hematocrit 35.3(L) 38.7 - 51.1 % 08/17/2024 5:51 AM [facility] MCV 100.0(H) 80.0 - 98.0 fL 08/17/2024 5:51 AM [facility] MCH 34.0(H) 26.7 - 33.6 pg 08/17/2024 5:51 AM [facility] MCHC 34.0 31.7 - 36.3 g/dL 08/17/2024 5:51 AM [facility] RDW-CV 12.5 11.3 - 14.8 % 08/17/2024 5:51 AM [facility] Platelet Count 118(L) 150 - 420 x10E9/L 08/17/2024 5:51 AM [facility] MPV 10.6 7.8 - 11.4 fL 08/17/2024 5:51 AM [facility] Blood BLOOD SPECIMEN / Unknown Line Draw / Unknown 08/17/2024 5:13 AM NURSING SUPPORT WORKER 08/17/2024 5:22 AM [facility] Can Woo MD LAB - HEMATOLOGY ORD ERABLES [address] [address], [facility] [phone] * (ABNORMAL) BASIC METABOLIC PANEL (CALCIUM TOTAL) (08/17/2024 5:13 AM [facility] [facility] Only the most recent of3 resultswithin the time period is included. Pathologist [facility] BUN 36(H) 7 - 26 mg/dL 08/17/2024 5:50 AM [facility] Creatinine 1.50(H) 0.71 - 1.16 mg/dL 08/17/2024 5:50 AM [facility] Sodium 142 136 - 145 mmol/L 08/17/2024 5:50 AM [facility] Potassium 4.3 3.5 - 4.5 mmol/L 08/17/2024 5:50 AM [facility] Chloride 111(H) 98 - 107 mmol/L 08/17/2024 5:50 AM [facility] CO2 24 22 - 29 mmol/L 08/17/2024 5:50 AM [facility] Glucose 103(H) 70 - 99 mg/dL 08/17/2024 5:50 AM [facility] Calcium 7.8(L) 8.4 - 10.2 mg/dL 08/17/2024 5:50 AM [facility] Anion Gap 7 6 - 16 08/17/2024 5:50 AM [facility] BUN/Creatinine Ratio 24(H) 7 - 23 08/17/2024 5:50 AM [facility] Osmolality Calculated 303(H) 275 - 295 mOsm/kg 08/17/2024 5:50 AM [facility] eGFR by CKD-EPI 51(L) >=90 mL/min/1.7 3 m2 08/17/2024 5:50 AM [facility] Blood BLOOD SPECIMEN / Unknown Line Draw / Unknown 08/17/2024 5:13 AM NURSING SUPPORT WORKER 08/17/2024 5:21 AM [facility] Can Woo MD LAB - CHEMISTRY ORDE RAJEEV [facility] ([place], [place]) Organization Address City/State/ZIP Co de Phone Number [facility] [address] [place] [address], [facility] [phone] * SYPHILIS ANTIBODY CASCADING REFLEX (08/17/2024 4:07 AM [facility]) Treponema pallidum Antibody Non-react bassem Non-react bassem 08/17/2024 5:09 AM [facility] Comment: No Laboratory evidence of syphilis infection. ?? Note: ??Circulating antibodies may be low or undetectable in early infection. ??If recent exposure is suspected, re-draw sample in 2-4 weeks and repeat testing. Blood BLOOD SPECIMEN / Unknown Line Draw / Unknown 08/17/2024 4:07 AM NURSING SUPPORT WORKER 08/17/2024 4:13 AM NURSING SUPPORT WORKER Can Woo MD LAB - SEROLOGY ORDER CHRISTIANA Performing Organization Address City/[facility]/ZIP Co de Phone Number [address] [address], [place] [phone] * HEMOGLOBIN A1C (08/17/2024 4:07 AM NURSING SUPPORT WORKER) Hemoglobin A1c 5.1 <=5.6 % 08/17/2024 9:15 AM [facility] Estimated Average Glucose 100 mg/dL 08/17/2024 9:15 AM [facility] Comment: HbA1c Interpretation: Normal : < 5.7% Pre-diabetes: 5.7-6.4% Diabetes: Equal to or greater than 6.5% Test results diagnostic of diabetes should be repeated for confirmation. Treatment target values recommended by ADA and other clinical organizations should be used to evaluate metabolic control in patients. Reference: [place] [employer], Standards of Care in Diabetes -2020 In patients 70 years and older consider HbA1c target range of 7.0-7.5% (Reference: Blu Pineda et al. JAMDA. 2012) The Sebia assay for the measurement of HbA1c is a National Glycohemoglobin Standardization Program (NGSP) certified method. Blood BLOOD SPECIMEN / Unknown Line Draw / Unknown 08/17/2024 4:07 AM NURSING SUPPORT WORKER 08/17/2024 4:20 AM NURSING SUPPORT WORKER Can Woo MD LAB - CHEMISTRY ORDE RABLES Performing Organization Address City/[facility]/ZIP Co de Phone Number [address] [address], [place] [phone] * (ABNORMAL) CK BLOOD (08/17/2024 4:07 AM NURSING SUPPORT WORKER) Only the most recent of2 resultswithin the time period is included. CK Total 1,786(H) 30 - 200 U/L 08/17/2024 4:56 AM NURSING SUPPORT WORKER [facility] Blood BLOOD SPECIMEN / Unknown Line Draw / Unknown 08/17/2024 4:07 AM NURSING SUPPORT WORKER 08/17/2024 4:23 AM NURSING SUPPORT WORKER Can Woo MD LAB - CHEMISTRY BINDU BOO Performing Organization Address City/[facility]/ZIP Co de Phone Number [address] [address], [place] [phone] * (ABNORMAL) VITAMIN B12 (08/17/2024 4:07 AM NURSING SUPPORT WORKER) [facility] Vitamin B12 182(L) 213 - 816 pg/mL 08/17/2024 5:15 AM NURSING SUPPORT WORKER [facility] Blood BLOOD SPECIMEN / Unknown Line Draw / Unknown 08/17/2024 4:07 AM NURSING SUPPORT WORKER 08/17/2024 4:23 AM NURSING SUPPORT WORKER Can Woo MD LAB - CHEMISTRY BINDU BOO Performing Organization Address [facility]/ZIP Co de Phone Number [address] [address], [place] [phone] * (ABNORMAL) TSH (08/17/2024 4:07 AM NURSING SUPPORT WORKER) [facility] TSH 0.112(L) 0.350 - 4.940 uIU/mL 08/17/2024 5:15 AM NURSING SUPPORT WORKER [facility] Blood BLOOD SPECIMEN / Unknown Line Draw / Unknown 08/17/2024 4:07 AM NURSING SUPPORT WORKER 08/17/2024 4:23 AM NURSING SUPPORT WORKER Can Woo MD LAB - CHEMISTRY BINDU BOO Performing Organization Address City/[facility]/ZIP Co de Phone Number [address] [address], [place] [phone] * GLUCOSE - POINT OF CARE (08/17/2024 4:05 AM NURSING SUPPORT WORKER) Only the most recent of3 resultswithin the time period is included. Glucose WB/POC 85 70 - 99 mg/dL 08/17/2024 4:10 AM NURSING SUPPORT WORKER [facility] Specimen Type Venous 08/17/2024 4:10 AM [facility] Blood BLOOD SPECIMEN / Unknown 08/17/2024 4:05 AM NURSING SUPPORT WORKER 08/17/2024 4:10 AM NURSING SUPPORT WORKER Can Woo MD LAB - POINT OF CARE ORDERABLES Performing Organization Address [facility]/ZIP Co de Phone Number [address] [address], [facility] [phone] * (ABNORMAL) DRUG SCREEN EXPANDED TOXICOLOGY URINE PANEL (08/16/2024 10:01 PM NURSING SUPPORT WORKER) Pathologist [facility] Expanded Drug Screen, Urine Positive(A) Negative 08/17/2024 12:20 PM [facility] Findings Acetaminophen Caffeine Codeine Codeine glucuronide Cotinine Cyclobenzaprine Diphenhydramine Duloxetine Gabapentin Hydromorphone glucuronide Lisinopril meta-Chloropheny lpiperazine(mCPP ) Morphine Nicotine Trazodone 08/17/2024 12:20 PM [facility] Urine URINE / Unknown Collection / Unknown 08/16/2024 10:01 PM NURSING SUPPORT WORKER 08/16/2024 10:20 PM NURSING SUPPORT WORKER Narrative [facility] TOXICOLOG[facility] - 08/17/2024 12:20 PM NURSING SUPPORT WORKER Testing performed by Liquid Chromatography-Quadrupole Time Flight Mass Spectrometry. While mass spectrometry is highly sensitive and specific, false-positive and false-negative findings may occur in rare circumstances. If consultation is needed, please contact the Clinical Pathology Resident agricultural produce commission agent at [phone] (M-F, 8 am ? 5 pm) or [phone] after hours. This test does not include THC or barbiturates. This testing was developed by the [facility] Toxicology Laboratory in keeping with CLIA requirements. The test has not been cleared or approved by the U.S. Food and Drug Administration. Can Woo MD LAB - URINE CHEMISTR Y ORDERABLES [facility]IC[facility] [address] [place] [address], [facility] [phone] * CULTURE URINE (08/16/2024 7:46 PM NURSING SUPPORT WORKER) Culture Urine No growth (<100 CFU/mL) ARLEN 08/18/2024 12:06 AM NURSING SUPPORT WORKER [facility] MICROBIOLOGY Urine URINE SPECIMEN OBTAINED BY CLEAN CATCH PROCEDURE / Unknown Collection / Unknown 08/16/2024 7:46 PM NURSING SUPPORT WORKER 08/16/2024 7:53 PM NURSING SUPPORT WORKER Can Woo MD LAB - MICROBIOLOGY O RDERABLES [facility] MICROBIOLOGY [address] [place] [address], [facility] [phone] * (ABNORMAL) BLOOD GASES ART + COOX PANEL (08/16/2024 7:01 PM NURSING SUPPORT WORKER) pH Arterial 7.29(L) 7.35 - 7.45 pH 08/16/2024 7:11 PM [facility] pO2 Arterial 61(L) 80 - 100 mmHg 08/16/2024 7:11 PM [facility] pCO2 Arterial 42 35 - 45 mmHg 7:11 PM [facility] HCO3 Arterial 20.2 20.0 - 30.0 mmol/L 08/16/2024 7:11 PM [facility] BE Arterial -6.1(L) -2.0 - 2.0 mmol/L 08/16/2024 7:11 PM [facility] Oxyhemoglobin Arterial 90.1 % 08/16/2024 7:11 PM [facility] Dexoyhemoglobin (HHB) % 7.0 % 08/16/2024 7:11 PM [facility] Methemoglobin <0.8 0.0 - 2.0 % 08/16/2024 7:11 PM [facility] Carboxyhemoglobin 2.6(H) 0.0 - 2.0 % 2023 7:11 PM [facility] O2 Content Arterial 16.8 Interpret within clinical context ml/dL 08/16/2024 7:11 PM [facility] Hemoglobin by COOX 13.3 12.0 - 17.6 g/dL 08/16/2024 7:11 PM [facility] O2 Saturation Arterial 93 90 - 100 % 08/16/2024 7:11 PM [facility] FI O2 Arterial 21.0 % 08/16/2024 7:11 PM [facility] Blood, arterial ARTERIAL BLOOD SPECIMEN / Unknown Arterial Puncture / Unknown 08/16/2024 7:01 PM NURSING SUPPORT WORKER 08/16/2024 7:09 PM NURSING SUPPORT WORKER Narrative [facility] - 08/16/2024 7:11 PM NURSING SUPPORT WORKER Carboxyhemoglobin Normal Concentration: Non-smokers: 0-2%; Smokers: 0-9%; Toxic: >20% Can Woo MD LAB - BLOOD GASES OR DERABLES Performing Organization Address City/[facility]/ZIP Co de Phone Number [facility] [address] [place] [address], [place] [phone] * LACTIC ACID BLOOD REFLEX TO REPEAT (08/16/2024 3:18 PM NURSING SUPPORT WORKER) Lactic Acid-Stat 1.7 <=2.0 mmol/L 08/16/2024 3:51 PM [facility] Blood BLOOD SPECIMEN / Unknown Venipuncture / Unknown 08/16/2024 3:18 PM NURSING SUPPORT WORKER 08/16/2024 3:26 PM NURSING SUPPORT WORKER Can Woo MD LAB - CHEMISTRY ORDE RABLES [facility] [address] [place] [address], [place] [phone] * (ABNORMAL) URINE MICROSCOPIC ONLY REFLEX TO CULTURE (08/16/2024 9:23 AM NURSING SUPPORT WORKER) Reflex Status Culture not indicated 08/16/2024 10:57 AM [facility] RBC UA 6-10(A) None Seen, 0-2, 3-5 /HPF 08/16/2024 10:57 AM [facility] WBC UA 0-5 None Seen, 0-5 /HPF 08/16/2024 10:57 AM [facility] Bacteria UA 1+(A) None /HPF 08/16/2024 10:57 AM [facility] Squamous Epithelial Cells UA 6-10(A) None Seen, 0-2, 3-5 /HPF 08/16/2024 10:57 AM [facility] Mucus UA 2+ /LPF 08/16/2024 10:57 AM [facility] Hyaline Casts UA 3-5(A) None Seen, 0-2 /LPF 08/16/2024 10:57 AM [facility] Urine URINE SPECIMEN OBTAINED BY CLEAN CATCH PROCEDURE / Unknown Collection / Unknown 08/16/2024 9:23 AM NURSING SUPPORT WORKER 08/16/2024 9:44 AM [facility] Cresencio Gonzalez MD LAB - URINALYSIS O RDERABLES [address] [address], [facility] [phone] * (ABNORMAL) URINALYSIS REFLEX MICROSCOPIC REFLEX CULTURE (08/16/2024 9:23 AM NURSING SUPPORT WORKER) Color UA Rosario(A) Straw, Yellow 08/16/2024 9:53 AM [facility] Clarity UA Slt Cloudy(A) Clear 08/16/2024 9:53 AM [facility] Specific Cowen UA 1.041(H) 1.005 - 1.030 08/16/2024 9:53 AM [facility] pH UA 5.0 5.0 - 8.0 pH 08/16/2024 9:53 AM [facility] Protein UA 1+(A) Negative 08/16/2024 9:53 AM [facility] Glucose UA Negative Negative 08/16/2024 9:53 AM [facility] Ketone UA Negative Negative 08/16/2024 9:53 AM [facility] Bilirubin UA Negative Negative 08/16/2024 9:53 AM [facility] Blood UA 3+(A) Negative 08/16/2024 9:53 AM [facility] Nitrite UA Negative Negative 08/16/2024 9:53 AM [facility] Leukocyte Esterase Negative Negative 08/16/2024 9:53 AM [facility] Urobilinogen UA 2.0(A) Negative mg/dL 08/16/2024 9:53 AM [facility] Urine URINE SPECIMEN OBTAINED BY CLEAN CATCH PROCEDURE / Unknown Collection / Unknown 08/16/2024 9:23 AM NURSING SUPPORT WORKER 08/16/2024 9:44 AM NURSING SUPPORT WORKER Narrative [facility] - 08/16/2024 9:53 AM NURSING SUPPORT WORKER Cresencio Gonzalez MD LAB - URINALYSIS O RDERABLES [address] [address], [facility] [phone] * UREA NITROGEN URINE RANDOM (08/16/2024 9:23 AM NURSING SUPPORT WORKER) Urea Nitrogen Random Urine 310 Not Established mg/dL 08/16/2024 10:08 AM [facility] Urine URINE SPECIMEN OBTAINED BY CLEAN CATCH PROCEDURE / Unknown Collection / Unknown 08/16/2024 9:23 AM NURSING SUPPORT WORKER 08/16/2024 9:44 AM NURSING SUPPORT WORKER Francesco Malik MD LAB - URINE SENIOR PROPERTY ACCOUNTANT RY ORDERABLES [address] [address], [place] [phone] * (ABNORMAL) URINE DRUG SCREEN IMMUNOASSAY (08/16/2024 9:23 AM NURSING SUPPORT WORKER) Amphetamines Screen Urine Negative Negative : < 1000 ng/mL 08/16/2024 10:07 AM [facility] Barbiturates Screen Urine Negative Negative : < 200 ng/mL 08/16/2024 10:07 AM [facility] Benzodiazepine Screen Urine Negative Negative : < 200 ng/mL 08/16/2024 10:07 AM [facility] Opiates Urine Positive(A) Negative : < 300 ng/mL 08/16/2024 10:07 AM [facility] Comment:Positive urine opiat e screening results should be confirmed by another generally accepted non-immunological method such as gas chromatography or mass spectrometry. Cocaine Metabolites Urine Negative Negative : < 300 ng/mL 08/16/2024 10:07 AM [facility] Phencyclidine Screen Urine Negative Negative : < 25 ng/ml 08/16/2024 10:07 AM [facility] Cannabinoids Screen Urine Negative Negative : <50 ng/mL 08/16/2024 10:07 AM [facility] Methadone Screen Urine Negative Negative : < 300 ng/mL 08/16/2024 10:07 AM [facility] Fentanyl Screen Urine Positive(A) Negative : <1.5 ng/mL 08/16/2024 10:07 AM [facility] Comment:Positive urine fenta nyl screening results should be confirmed by another generally accepted non-immunological method such as gas chromatography or mass spectrometry. Urine URINE / Unknown Collection / Unknown 08/16/2024 9:23 AM [facility] 08/16/2024 9:44 AM [facility] - 08/16/2024 10:07 AM [facility] The Urine Toxicology Screening Panel does not screen for Propoxyphene, Meprobamate, Carisoprodol, Trazodone, rjqy-jrh-dekjhjx medications and/or volatiles (Acetone, Isopropanol, Methanol or Ethylene Glycol). Ethanol, Salicylate, Acetaminophen, Tricyclic Antidepressants and several therapeutic drugs may be individually assayed in serum or plasma specimen. Toxicology testing by the [facility] is an aid to medical diagnosis and treatment of patients. No documented chain of custody was maintained. Results are intended to be used for clinical purposes only. ? Cresencio Gonzalez MD LAB - URINE CHEMIS TRY ORDERABLES [facility] [address] [place] [address], [facility] [phone] * CREATININE URINE RANDOM (08/16/2024 9:23 AM NURSING SUPPORT WORKER) Creatinine Urine 113.55 Not Established mg/dL 08/16/2024 10:08 AM NURSING SUPPORT WORKER [facility] Urine URINE SPECIMEN OBTAINED BY CLEAN CATCH PROCEDURE / Unknown Collection / Unknown 08/16/2024 9:23 AM NURSING SUPPORT WORKER 08/16/2024 9:44 AM NURSING SUPPORT WORKER Francesco Malik MD LAB - URINE SENIOR PROPERTY ACCOUNTANT RY ORDERABLES Performing Organization Address City/[facility]/ZIP Co de Phone Number [facility] [address] [place] [address], [facility] [phone] * LYTES (NA K) URINE RANDOM PANEL (08/16/2024 9:23 AM NURSING SUPPORT WORKER) Sodium Urine 60 Not Established mmol/L 08/16/2024 10:08 AM [facility] Potassium Urine 22.6 Not Established mmol/L 08/16/2024 10:08 AM [facility] Urine URINE SPECIMEN OBTAINED BY CLEAN CATCH PROCEDURE / Unknown Collection / Unknown 08/16/2024 9:23 AM NURSING SUPPORT WORKER 08/16/2024 9:44 AM NURSING SUPPORT WORKER Francesco Malik MD LAB - URINE SENIOR PROPERTY ACCOUNTANT RY ORDERABLES [facility] [address] [place] [address], [facility] [phone] * (ABNORMAL) TRICYCLICS SCREEN BLOOD (08/16/2024 8:52 AM NURSING SUPPORT WORKER) Tricyclic Antidepressants 248(H) 80 - 200 ng/mL 08/16/2024 9:39 AM [facility] Blood BLOOD SPECIMEN / Unknown Venipuncture / Unknown 08/16/2024 8:52 AM [facility] 08/16/2024 9:03 AM [facility] - 08/16/2024 9:39 AM [facility] Many drugs significantly cross-react with this assay, [...] - CHEMISTRY OR DERABLES Performing Organization Address City/State/[facility] Co de Phone Number [facility] [address] [place] [address], [facility] [phone] * (ABNORMAL) HEPATIC FUNCTION PANEL (08/16/2024 8:52 AM [facility]) Protein Total 5.7(L) 6.0 - 8.3 g/dL 9:36 AM [facility] Albumin 2.7(L) 3.4 - 5.0 g/dL 08/16/2024 9:36 AM [facility] Bilirubin Total 0.4 0.2 - 1.2 mg/dL 08/02 9:36 AM [facility] Bilirubin Conjugated 0.3 0.1 - 0.5 mg/dL 08/16/2024 9:36 AM [facility] Bilirubin Unconjugated 0.1 Unconjugated Bilirubin is a calculated value: Reference ranges have not been established. mg/dL 08/16/2024 9:36 AM [facility] Alkaline Phosphatase 64 40 - 150 U/L 08/16/2024 9:36 AM [facility] ALT 41 5 - 55 U/L 08/16/2024 9:36 AM [facility] AST 78(H) 5 - 34 U/L 08/16/2024 9:36 AM [facility] Albumin/Globulin Ratio 0.9(L) 1.1 - 2.3 08/16/2024 9:36 AM [facility] Blood BLOOD SPECIMEN / Unknown Venipuncture / Unknown 08/16/2024 8:52 AM NURSING SUPPORT WORKER 08/16/2024 9:12 AM NURSING SUPPORT WORKER Francesco Malik MD LAB - CHEMISTRY ORD ERABLES Performing Organization Address City/[facility]/ZIP Co de Phone Number [address] [address], [facility] [phone] * (ABNORMAL) SALICYLATE LEVEL BLOOD (08/16/2024 8:52 AM NURSING SUPPORT WORKER) Salicylate <5(L) 15 - 30 mg/dL 08/16/2024 9:36 AM [facility] Blood BLOOD SPECIMEN / Unknown Venipuncture / Unknown 08/16/2024 8:52 AM NURSING SUPPORT WORKER 08/16/2024 9:12 AM NURSING SUPPORT WORKER [facility] - 08/16/2024 9:36 AM NURSING SUPPORT WORKER This test is not intended for use with low-dose aspirin therapy. Most patients on low-dose aspirin for cardiovascular prophylaxis will have serum concentrations near or below the lower limit of the analytical range. Cresencio Gonzalez MD LAB - CHEMISTRY OR DERABLES Performing Organization Address [facility] Co de Phone Number [address] [address], [facility] [phone] * ACETAMINOPHEN LEVEL (08/16/2024 8:52 AM NURSING SUPPORT WORKER) Acetaminophen <3.0 <3.0 ug/mL 08/16/2024 9:36 AM [facility] Blood BLOOD SPECIMEN / Unknown Venipuncture / Unknown 08/16/2024 8:52 AM NURSING SUPPORT WORKER 08/16/2024 9:12 AM NURSING SUPPORT WORKER [facility] - 08/16/2024 9:36 AM NURSING SUPPORT WORKER Acetaminophen Toxicity Levels (Hours Post Ingestion): ? [...] may alter the peak level. Contact the [facility] at or reserved for healthcare professionals to assist you in evaluating potentially toxic acetaminophen levels. Cresencio Gonzalez MD LAB - CHEMISTRY OR DERABLES [address] [address], [facility] [phone] * XR PELVIS 1 OR 2VW (08/16/2024 7:20 AM NURSING SUPPORT WORKER) Anatomical Region Laterality Modality Pelvis Digital Radiogra phy 08/16/2024 7:22 AM NURSING SUPPORT WORKER Impressions 08/16/2024 3:31 PM NURSING SUPPORT WORKER IMPRESSION: No acute displaced fracture or dislocation of pelvis is identified. Report dictated by Rafi Vicente MD (manager of radiology). IMason have personally reviewed and interpreted this examination/study. > Interpreting Provider: Mason Lucero on 08/16/2024 3:31 PM Narrative 08/16/2024 3:31 PM NURSING SUPPORT WORKER EXAMINATION: XR PELVIS 1 OR 2VW DATE/TIME OF EXAM: ??08/16/2024 7:22 AM, LOCATION ??[facility] HISTORY: Trauma Fracture suspected COMPARISON: No prior [...] DATE/TIME OF EXAM: 08/16/2024 7:22 AM, LOCATION [facility] HISTORY: Trauma Fracture suspected COMPARISON: No prior [...] identified. Report dictated by Rafi Vicente MD (manager of radiology). Mason Brizuela have personally reviewed and interpreted this examination/study. > Interpreting Provider: Mason Lucero on 08/16/2024 3:31 PM Cresencio Gonzalez MD DIAGNOSTIC IMAGING ORDERABLES * CT CHEST ABDOMEN PELVIS W CONT - Abdomen-pelvis trauma, blunt or penetrating (08/16/2024 6:58 AM NURSING SUPPORT WORKER) Anatomical Region Laterality Modality Chest, Abdomen, Pelvis Computed Tomography 08/16/2024 8:11 AM NURSING SUPPORT WORKER Impressions 08/16/2024 5:01 PM NURSING SUPPORT WORKER Impression 1. No acute visceral, vascular, [...] gastroesophageal reflux/esophagitis. Report dictated by Bryon Watson MD(manager of radiology). Viviana Brizuela MD have personally reviewed and interpreted this examination/study. > Interpreting Provider: Viviana Rain MD on 08/16/2024 5:01 PM Narrative 08/16/2024 5:01 PM NURSING SUPPORT WORKER PROCEDURE: ??CT CHEST ABDOMEN PELVIS W CONT, DATE/TIME OF EXAM: ??08/16/2024 7:20 AM, LOCATION ??[facility] INDICATION: Trauma COMPARISON: None. EXAMINATION: Computed tomography [...] CONT, DATE/TIME OF EXAM:08/16/2024 7:20 AM, LOCATION [facility] INDICATION: Trauma COMPARISON: None. EXAMINATION: Computed tomography [...] ofgastroesophageal reflux/esophagitis. Report dictated by Bryon Watson MD(manager of radiology). I, Viviana Rain MD have personally reviewed and interpreted this examination/study. > Interpreting Provider: Viviana Rain MD on 08/16/2024 5:01 PM Cresencio Gonzalez MD CT ORDERABLES * CT Angio Lower Extremity Right (08/16/2024 6:58 AM NURSING SUPPORT WORKER) Anatomical Region Laterality Modality Lower Extremity Computed Tomogra phy 08/16/2024 7:57 AM NURSING SUPPORT WORKER Impressions 08/16/2024 5:06 PM NURSING SUPPORT WORKER IMPRESSION: Three-vessel runoff of bilateral lower extremity arteries to the level of ankle. Of note, the dorsalis pedis and tibialis posterior arteries are diminutive bilaterally likely secondary to diffuse spasm but patent without evidence of contrast extravasation to suggest arterial injury or active bleeding. > Dictated by Felix Awad MD (manager of radiology). I, Viviana Rain MD have personally reviewed and interpreted this examination/study. > Interpreting Provider: Viviana Rain MD on 08/16/2024 5:06 PM Narrative 08/16/2024 5:06 PM NURSING SUPPORT WORKER PROCEDURE: ??CT ANGIO LOWER EXTREMITY RIGHT, CT ANGIO LOWER EXTREMITY LEFT, DATE/TIME OF EXAM: ??08/16/2024 7:20 AM, LOCATION ??[facility] INDICATION: W10.8XXA: Fall (on) (from) other stairs [...] DATE/TIME OF EXAM: 08/16/2024 7:20 AM, LOCATION [facility] INDICATION: W10.8XXA: Fall (on) (from) other stairs [...] bleeding. > Dictated by Felix Awad MD (manager of radiology). Viviana Brizuela MD have personally reviewed and interpreted this examination/study. > Interpreting Provider: Viviana Rain MD on 08/16/2024 5:06 PM Chet Henning MD CT ORDERABLES * CT Angio Lower Extremity Left (08/16/2024 6:58 AM NURSING SUPPORT WORKER) Anatomical Region Laterality Modality Lower Extremity Computed Tomogra phy 08/16/2024 7:57 AM NURSING SUPPORT WORKER Impressions 08/16/2024 5:06 PM NURSING SUPPORT WORKER IMPRESSION: Three-vessel runoff of bilateral lower extremity arteries to the level of ankle. Of note, the dorsalis pedis and tibialis posterior arteries are diminutive bilaterally likely secondary to diffuse spasm but patent without evidence of contrast extravasation to suggest arterial injury or active bleeding. > Dictated by Felix Awad MD (manager of radiology). Viviana Brizuela MD have personally reviewed and interpreted this examination/study. > Interpreting Provider: Viviana Rain MD on 08/16/2024 5:06 PM Narrative 08/16/2024 5:06 PM NURSING SUPPORT WORKER PROCEDURE: ??CT ANGIO LOWER EXTREMITY RIGHT, CT ANGIO LOWER EXTREMITY LEFT, DATE/TIME OF EXAM: ??08/16/2024 7:20 AM, LOCATION ??[facility] INDICATION: W10.8XXA: Fall (on) (from) other stairs [...] DATE/TIME OF EXAM: 08/16/2024 7:20 AM, LOCATION [facility] INDICATION: W10.8XXA: Fall (on) (from) other stairs [...] bleeding. > Dictated by Felix Awad MD (manager of radiology). Viviana Brizuela MD have personally reviewed and interpreted this examination/study. > Interpreting Provider: Viviana Rain MD on 08/16/2024 5:06 PM Chet Henning MD CT ORDERABLES * CT LUMBAR SPINE WO CONTRAST - T/L-spine trauma, Spine fracture (08/16/2024 6:58 AM NURSING SUPPORT WORKER) Anatomical Region Laterality Modality Spine Computed Tomogra phy 08/16/2024 6:28 AM NURSING SUPPORT WORKER Impressions 08/16/2024 10:30 AM NURSING SUPPORT WORKER IMPRESSION: 1.No acute intracranial hemorrhage, midline [...] findings. Report dictated by Rafi Vicente MD (manager of radiology). Ruby Brizuela MD have personally reviewed and interpreted this examination/study. > Interpreting Provider: Ruby Villanueva MD on 08/16/2024 10:30 AM Narrative 08/16/2024 10:30 AM NURSING SUPPORT WORKER PROCEDURE: ??CT HEAD WO CONTRAST, CT LUMBAR SPINE WO CONTRAST, CT THORACIC SPINE WO CONTRAST, CT CERVICAL SPINE WO CONTRAST, DATE/TIME OF EXAM: 08/16/2024 7:20 AM, LOCATION ??[facility] INDICATION: Trauma EXAMINATION: 1.Computed tomography (CT) of [...] DATE/TIME OF EXAM: 08/16/2024 7:20 AM, LOCATION [facility] INDICATION: Trauma EXAMINATION: 1.Computed tomography (CT) of [...] findings. Report dictated by Rafi Vicente MD (manager of radiology). Ruby Brizuela MD have personally reviewed and interpretedthis examination/study. > Interpreting Provider: Ruby Villanueva MD on 08/16/2024 10:30AM Cresencio Gonzalez MD CT ORDERABLES * CT THORACIC SPINE WO CONTRAST - T/L-spine trauma, spine fracture (08/16/2024 6:58 AM NURSING SUPPORT WORKER) Anatomical Region Laterality Modality Spine Computed Tomogra phy 08/16/2024 6:28 AM NURSING SUPPORT WORKER Impressions 08/16/2024 10:30 AM NURSING SUPPORT WORKER IMPRESSION: 1.No acute intracranial hemorrhage, midline [...] findings. Report dictated by Rafi Vicente MD (manager of radiology). Ruby Brizuela MD have personally reviewed and interpreted this examination/study. > Interpreting Provider: Ruby Villanueva MD on 08/16/2024 10:30 AM Narrative 08/16/2024 10:30 AM NURSING SUPPORT WORKER PROCEDURE: ??CT HEAD WO CONTRAST, CT LUMBAR SPINE WO CONTRAST, CT THORACIC SPINE WO CONTRAST, CT CERVICAL SPINE WO CONTRAST, DATE/TIME OF EXAM: 08/16/2024 7:20 AM, LOCATION ??[facility] INDICATION: Trauma EXAMINATION: 1.Computed tomography (CT) of [...] DATE/TIME OF EXAM: 08/16/2024 7:20 AM, LOCATION [facility] INDICATION: Trauma EXAMINATION: 1.Computed tomography (CT) of [...] findings. Report dictated by Rafi Vicente MD (manager of radiology). I, Ruby Villanueva MD have personally reviewed and interpretedthis examination/study. > Interpreting Provider: Ruby Villanueva MD on 08/16/2024 10:30AM Cresencio Gonzalez MD CT ORDERABLES * CT CERVICAL SPINE WO CONTRAST - C-Spine Trauma, Spine fracture (08/16/2024 6:58 AM NURSING SUPPORT WORKER) Anatomical Region Laterality Modality Spine Computed Tomogra phy 08/16/2024 6:28 AM NURSING SUPPORT WORKER Impressions 08/16/2024 10:30 AM NURSING SUPPORT WORKER IMPRESSION: 1.No acute intracranial hemorrhage, midline [...] findings. Report dictated by Rafi Vicente MD (manager of radiology). IRuby MD have personally reviewed and interpreted this examination/study. > Interpreting Provider: Ruby Villanueva MD on 08/16/2024 10:30 AM Narrative 08/16/2024 10:30 AM NURSING SUPPORT WORKER PROCEDURE: ??CT HEAD WO CONTRAST, CT LUMBAR SPINE WO CONTRAST, CT THORACIC SPINE WO CONTRAST, CT CERVICAL SPINE WO CONTRAST, DATE/TIME OF EXAM: 08/16/2024 7:20 AM, LOCATION ??[facility] INDICATION: Trauma EXAMINATION: 1.Computed tomography (CT) of [...] Tortuosity of the abdominal aorta. Procedure Note uRby Villanueva MD - 08/16/2024 PROCEDURE: CT HEAD WO CONTRAST, CT LUMBAR SPINE WO CONTRAST, CTTHORACIC SPINE WO CONTRAST, CT CERVICAL SPINE WO CONTRAST, DATE/TIME OF EXAM: 08/16/2024 7:20 AM, LOCATION [facility] INDICATION: Trauma EXAMINATION: 1.Computed tomography (CT) of [...] findings. Report dictated by Rafi Vicente MD (manager of radiology). Ruby Brizuela MD have personally reviewed and interpretedthis examination/study. > Interpreting Provider: Ruby Villanueva MD on 08/16/2024 10:30AM Cresencio Gonzalez MD CT ORDERABLES * CT HEAD WO CONTRAST - Head Trauma, CSF leak, mental status changes (08/16/2024 6:58 AM NURSING SUPPORT WORKER) Anatomical Region Laterality Modality Head Computed Tomogra phy 08/16/2024 6:28 AM NURSING SUPPORT WORKER Impressions 08/16/2024 10:30 AM NURSING SUPPORT WORKER IMPRESSION: 1.No acute intracranial hemorrhage, midline [...] findings. Report dictated by Rafi Vicente MD (manager of radiology). IRuby MD have personally reviewed and interpreted this examination/study. > Interpreting Provider: Ruby Villanueva MD on 08/16/2024 10:30 AM Narrative 08/16/2024 10:30 AM NURSING SUPPORT WORKER PROCEDURE: ??CT HEAD WO CONTRAST, CT LUMBAR SPINE WO CONTRAST, CT THORACIC SPINE WO CONTRAST, CT CERVICAL SPINE WO CONTRAST, DATE/TIME OF EXAM: 08/16/2024 7:20 AM, LOCATION ??[facility] INDICATION: Trauma EXAMINATION: 1.Computed tomography (CT) of [...] DATE/TIME OF EXAM: 08/16/2024 7:20 AM, LOCATION [facility] INDICATION: Trauma EXAMINATION: 1.Computed tomography (CT) of [...] findings. Report dictated by Rafi Vicente MD (manager of radiology). Ruby Brizuela MD have personally reviewed and interpretedthis examination/study. > Interpreting Provider: Ruby Villanueva MD on 08/16/2024 10:30AM Cresencio Gonzalez MD CT ORDERABLES * XR CHEST 1VW PORTABLE (08/16/2024 6:11 AM NURSING SUPPORT WORKER) Anatomical Region Laterality Modality Chest Digital Radiogra phy 08/16/2024 6:04 AM NURSING SUPPORT WORKER Narrative 08/16/2024 2:29 PM NURSING SUPPORT WORKER PROCEDURE: ??XR CHEST 1VW PORTABLE, DATE/TIME OF EXAM: ??08/16/2024 5:44 AM, LOCATION ??[facility] INDICATION: Trauma ADDITIONAL CLINICAL INFORMATION: Ordering Provider [...] visualized. Report dictated by Rafi Vicente MD (manager of radiology). Mason Brizuela have personally reviewed and interpreted this examination/study. > Interpreting Provider: Mason Lucero on 08/16/2024 2:29 PM Procedure Note Mason Lucero MD - 08/16/2024 PROCEDURE: XR CHEST 1VW PORTABLE, DATE/TIME OF EXAM: 08/16/2024 5:44AM, LOCATION [facility] INDICATION: Trauma ADDITIONAL CLINICAL INFORMATION: Ordering Provider [...] visualized. Report dictated by Rafi Vicente MD (manager of radiology). I, Mason Lucero have personally reviewed and interpreted this examination/study. > Interpreting Provider: Mason Lucero on 08/16/2024 2:29 PM rCesencio Gonzalez MD DIAGNOSTIC IMAGING ORDERABLES * PTT [facility] (08/16/2024 5:50 AM NURSING SUPPORT WORKER) APTT 27.4 23.0 - 38.4 Seconds 08/16/2024 6:38 AM NURSING SUPPORT WORKER [facility] Comment:Suggested therapeuti c range for full dose I.V. unfractionated heparin therapy for venous thromboembolism is 71 to 109 seconds. Blood BLOOD SPECIMEN / Unknown Venipuncture / Unknown 08/16/2024 5:50 AM NURSING SUPPORT WORKER 08/16/2024 6:12 AM NURSING SUPPORT WORKER Cresencio Gonzalez MD LAB - COAGULATION ORDERABLES Performing Organization Address [facility]/State/ZIP Co de Phone Number [facility] [address] [address], [facility] [phone] * TYPE + SCREEN PANEL (08/16/2024 5:50 AM NURSING SUPPORT WORKER) Antibody Screen NEG 6:49 AM NURSING SUPPORT WORKER [facility] LAB ABO Rh B POS 08/16/2024 6:49 AM NURSING SUPPORT WORKER [facility] Blood Bank BLOOD SPECIMEN / Unknown Venipuncture / Unknown 08/16/2024 5:50 AM NURSING SUPPORT WORKER 08/16/2024 6:13 AM NURSING SUPPORT WORKER Cresencio Gonzalez MD LAB - BLOOD BANK O RDERABLES Performing Organization Address [facility] de Phone Number [facility] [address] [place] [address], [facility] [phone] * LIPASE BLOOD (08/16/2024 5:50 AM NURSING SUPPORT WORKER) Lipase 13 8 - 78 U/L 08/16/2024 6:31 AM [facility] Blood BLOOD SPECIMEN / Unknown Venipuncture / Unknown 08/16/2024 5:50 AM NURSING SUPPORT WORKER 08/16/2024 6:10 AM [facility] - 08/16/2024 6:31 AM [facility] Lipase results from the [employer] analyzer may not be comparable with other methodologies. Cresencio Gonzalez MD LAB - CHEMISTRY OR DERABLES Performing Organization Address [facility] de Phone Number [facility] [address] [place] [address], [facility] [phone] * ALCOHOL ETHYL BLOOD (08/16/2024 5:50 AM NURSING SUPPORT WORKER) Ethanol (mg/dL) <10 <10 mg/dL 6:31 AM [facility] Ethanol Calculated (g/dL) <0.010 <=0.010 g/dL 08/16/2024 6:31 AM [facility] Blood BLOOD SPECIMEN / Unknown Venipuncture / Unknown 08/16/2024 5:50 AM NURSING SUPPORT WORKER 08/16/2024 6:10 AM [facility] Narrative [facility] - 08/16/2024 6:31 AM [facility] Ethanol Interp <10: None Detected. Depression of MACHINE ADJUSTER LEADER CASE TRIM: >100 mg/dl Potentially Critical: >250 mg/dl Potentially [...] Gonzalez MD LAB - CHEMISTRY OR DERABLES [facility] [address] [place] [address], [place] [phone] from Last 3 Months Advance Directives * Full Code (Latest Code Status on File) Date Activated Date Inactivated Comments 08/16/2024 6:25 PM 08/20/2024 1:32 PM Care Teams [employer] Worker Relationship Specialty Start Date End Date Mark Carmichael DO [address] [place] [id number] PCP - General Family Medicine 08/16/24
--- OUTSIDE RECORDS SUMMARY | 2024-08-20 13:47 | XMS_ITS | Patient Health Summary ---
Author Organization [facility] Address [address] [place] [address] Care Team Providers Care Cuff Setter Lockstitch Name Role Phone Mark Carmichael DO Primary Care Provider [phone] Note from [facility],non-owned Affiliates and Associated Physician Practices is amultiple site organization consisting of ambulatory clinics and hospital sitesin [place], [place], [place] and [place]. This disclosure is being madepursuant to the Care Everywhere program and may not contain all information available regarding this patient. Last updated 18.[facility] Allergies * Nsaids(Unknown,GI Discomfort,Shortness of Breath) -High Criticality * Prednisone(Unknown,Shortness of Breath) -High Criticality Medications * Be aware that medications may not be up to date on this document. Alwaysverify current medications with the patient. * cyclobenzaprine (Flexeril) 10 MG tablet Take 1 (one) tablet by mouth 2 times daily as needed * gabapentin (Neurontin) 300 MG capsule Take 1 (one) capsule by mouth 2 times daily * levothyroxine (Synthroid) 50 MCG tablet(Started 08/04/2024) Take 1 (one) tablet by mouth once daily * lisinopril (Prinivil; Zestril) 20 MG tablet(Started 08/06/2024) Take 1 (one) tablet by mouth once daily * acetaminophen-codeine (Tylenol #4) 300-60 MG tablet(Started 08/08/2024) Take 1 (one) tablet by mouth every 6 hours as needed for Pain * DULoxetine (Cymbalta) 60 MG capsule(Started 08/04/2024) Take 1 (one) capsule by mouth once daily * morphine IR (MSIR) 30 MG tablet(Started 08/08/2024) Take 1 (one) tablet by mouth 3 times daily as needed * pantoprazole EC (Protonix) 40 MG tablet(Started 03/27/2024) Take 1 (one) tablet by mouth every morning * traZODone (Desyrel) 100 MG tablet Take 1 (one) tablet by mouth once * FLUoxetine (PROzac) 20 MG capsule(Started 12/21/2023) Take 3 (three) capsules by mouth once daily Active Problems Problem Noted Date Diagnosed Date [...] 08/16/2024 Leukocytosis 08/16/2024 GERD (gastroesophageal reflux disease) Resolved Problems Problem Noted Date Diagnosed Date Resolved Date Common biliary duct obstruction 08/16/2024 08/16/2024 UTI (urinary tract infection) 08/16/2024 08/16/2024 Social History Tobacco Use Types Packs/Day Years [...] and heating? Not hard at all 08/20/2024 [facility] [place] [facility] Occupat ional Health - Occupational Stress [...] any time in the past 12 m [facility], were you homeless or living in a senior care (including now)? No 08/20/2024 Sex and Gender Information Value Date Recorded Sex Assigned at Not on file Gender Identity Not on file Sexual Orientation Not on file Last Filed Vital Signs Vital Sign Reading Time Taken Comments Blood Pressure 164/85 08/20/2024 11:05 AM AVIATION NEUROPSYCHOLOGIST Pulse 60 08/20/2024 11:05 AM AVIATION NEUROPSYCHOLOGIST Temperature 36.8 ??C (98.3 ??F) 08/20/2024 11:[address] Respiratory Rate 20 08/20/2024 11:05 AM AVIATION NEUROPSYCHOLOGIST Oxygen Saturation 97% 08/20/2024 11:05 AM AVIATION NEUROPSYCHOLOGIST Inhaled Oxygen Concentration - - Weight 74.5 kg (164 lb 3.2 oz) 08/18/2024 4:00 A M AVIATION NEUROPSYCHOLOGIST Height 182.9 cm (6') 08/16/2024 5:26 AM AVIATION NEUROPSYCHOLOGIST Body Mass Index 22.27 08/16/2024 5:26 AM AVIATION NEUROPSYCHOLOGIST Procedures * CBC W AUTO DIFFERENTIAL(Performed 08/20/2024) * COMPREHENSIVE METABOLIC PANEL(Performed 08/20/2024) * MAGNESIUM BLOOD(Performed 08/20/2024) * PHOSPHORUS BLOOD(Performed 08/20/2024) * ENDOSCOPIC ULTRASONOGRAPHY, GI(Performed 08/19/2024) * CBC W AUTO DIFFERENTIAL(Performed 08/19/2024) * COMPREHENSIVE METABOLIC PANEL(Performed 08/19/2024) * MAGNESIUM BLOOD(Performed 08/19/2024) * PHOSPHORUS BLOOD(Performed 08/19/2024) * LACTIC ACID BLOOD(Performed 08/18/2024) * CBC W AUTO DIFFERENTIAL(Performed 08/18/2024) * COMPREHENSIVE METABOLIC PANEL(Performed 08/18/2024) * MAGNESIUM BLOOD(Performed 08/18/2024) * PHOSPHORUS BLOOD(Performed 08/18/2024) * PT-INR [facility](Performed 08/18/2024) * ECHO COMPLETE W CONTRAST(Performed 08/17/2024) Performed for Shock (HCC) * EKG 12-LEAD(Performed 08/17/2024) Performed for Elevated CK, WILIAM (acute kidney injury) (HCC) * BASIC METABOLIC PANEL (CALCIUM TOTAL)(Performed 08/17/2024) * CBC W/O DIFFERENTIAL(Performed 08/17/2024) * LACTIC ACID BLOOD(Performed 08/17/2024) * TSH(Performed 08/17/2024) * SYPHILIS ANTIBODY CASCADING REFLEX(Performed 08/17/2024) * VITAMIN B12(Performed 08/17/2024) * HEMOGLOBIN A1C(Performed 08/17/2024) * LACTIC ACID BLOOD(Performed 08/17/2024) * CK BLOOD(Performed 08/17/2024) * CBC W AUTO DIFFERENTIAL(Performed 08/17/2024) * COMPREHENSIVE METABOLIC PANEL(Performed 08/17/2024) * MAGNESIUM BLOOD(Performed 08/17/2024) * PHOSPHORUS BLOOD(Performed 08/17/2024) * PT-INR [facility](Performed 08/17/2024) * GLUCOSE - POINT OF CARE(Performed 08/17/2024) * GLUCOSE - POINT OF CARE(Performed 08/17/2024) * EKG 12-LEAD(Performed 08/16/2024) Performed for Elevated CK * GLUCOSE - POINT OF CARE(Performed 08/16/2024) * DRUG SCREEN EXPANDED TOXICOLOGY URINE PANEL(Performed 08/16/2024) * CULTURE BLOOD(Performed 08/16/2024) * CULTURE BLOOD(Performed 08/16/2024) * CULTURE URINE(Performed 08/16/2024) * PHOSPHORUS BLOOD(Performed 08/16/2024) * MAGNESIUM BLOOD(Performed 08/16/2024) * LACTIC ACID BLOOD(Performed 08/16/2024) * COMPREHENSIVE METABOLIC PANEL(Performed 08/16/2024) * CBC W AUTO DIFFERENTIAL(Performed 08/16/2024) * BLOOD GASES ART + COOX PANEL(Performed 08/16/2024) * LACTIC ACID BLOOD REFLEX TO REPEAT(Performed 08/16/2024) * BASIC METABOLIC PANEL (CALCIUM TOTAL)(Performed 08/16/2024) * CK BLOOD(Performed 08/16/2024) * URINE MICROSCOPIC ONLY REFLEX TO CULTURE(Performed 08/16/2024) * UREA NITROGEN URINE RANDOM(Performed 08/16/2024) * CREATININE URINE RANDOM(Performed 08/16/2024) * LYTES (NA K) URINE RANDOM PANEL(Performed 08/16/2024) * URINALYSIS REFLEX MICROSCOPIC REFLEX CULTURE(Performed 08/16/2024) * URINE DRUG SCREEN IMMUNOASSAY(Performed 08/16/2024) * HEPATIC FUNCTION PANEL(Performed 08/16/2024) * ACETAMINOPHEN LEVEL(Performed 08/16/2024) * TRICYCLICS SCREEN BLOOD(Performed 08/16/2024) * SALICYLATE LEVEL BLOOD(Performed 08/16/2024) * XR PELVIS 1 OR 2VW(Performed 08/16/2024) Performed for Fall (on) (from) other stairs and steps, initial encounter * CT ANGIO LOWER EXTREMITY RIGHT(Performed 08/16/2024) Performed for Fall (on) (from) other stairs and steps, initial encounter * CT ANGIO LOWER EXTREMITY LEFT(Performed 08/16/2024) Performed for Fall (on) (from) other stairs and steps, initial encounter * CT LUMBAR SPINE WO CONTRAST(Performed 08/16/2024) Performed for Fall (on) (from) other stairs and steps, initial encounter * CT THORACIC SPINE WO CONTRAST(Performed 08/16/2024) Performed for Fall (on) (from) other stairs and steps, initial encounter * CT CHEST ABDOMEN PELVIS W CONT(Performed 08/16/2024) Performed for Fall (on) (from) other stairs and steps, initial encounter * CT CERVICAL SPINE WO CONTRAST(Performed 08/16/2024) Performed for Fall (on) (from) other stairs and steps, initial encounter * CT HEAD WO CONTRAST(Performed 08/16/2024) Performed for Fall (on) (from) other stairs and steps, initial encounter * XR CHEST 1VW PORTABLE(Performed 08/16/2024) Performed for Fall (on) (from) other stairs and steps, initial encounter * TYPE + SCREEN PANEL(Performed 08/16/2024) * PT-INR [facility](Performed 08/16/2024) * PTT [facility](Performed 08/16/2024) * LIPASE BLOOD(Performed 08/16/2024) * CBC W AUTO DIFFERENTIAL(Performed 08/16/2024) * BASIC METABOLIC PANEL (CALCIUM TOTAL)(Performed 08/16/2024) * ALCOHOL ETHYL BLOOD(Performed 08/16/2024) Results * (ABNORMAL) CBC W AUTO DIFFERENTIAL (08/20/2024 5:49 AM AVIATION NEUROPSYCHOLOGIST) Only the most recent of6 resultswithin the time period is included. WBC 3.6(L) 4.0 - 10.7 x10E9/L 08/20/2024 6:56 AM [facility] RBC Count 3.32(L) 4.30 - 5.80 x10E12/L 08/20/2024 6:56 AM [facility] Hemoglobin 11.3(L) 13.3 - 17.5 g/dL 08/20/2024 6:56 AM [facility] Hematocrit 32.1(L) 38.7 - 51.1 % 08/20/2024 6:56 AM [facility] MCV 96.7 80.0 - 98.0 fL 08/20/2024 6:56 AM [facility] MCH 34.0(H) 26.7 - 33.6 pg 08/20/2024 6:56 AM [facility] MCHC 35.2 31.7 - 36.3 g/dL 08/20/2024 6:56 AM [facility] RDW-CV 12.2 11.3 - 14.8 % 08/20/2024 6:56 AM [facility] Platelet Count 141(L) 150 - 420 x10E9/L 08/20/2024 6:56 AM [facility] MPV 10.0 7.8 - 11.4 fL 08/20/2024 6:56 AM [facility] Neutrophil % 57.6 41.0 - 74.0 % 08/20/2024 6:56 AM [facility] Lymphocyte % 27.2 17.0 - 47.0 % 08/20/2024 6:56 AM [facility] Monocyte % 10.8 3.0 - 11.0 % 08/20/2024 6:56 AM [facility] Eosinophil % 3.3 0.0 - 7.0 % 08/20/2024 6:56 AM [facility] Basophil % 0.3 0.0 - 1.6 % 08/20/2024 6:56 AM [facility] Immature Granulocytes % 0.8 0.0 - 1.0 % 08/20/2024 6:56 AM [facility] Neutrophil Absolute 2.07 1.60 - 7.50 x10E9/L 08/20/2024 6:56 AM [facility] Lymphocyte Absolute 0.98(L) 1.00 - 4.40 x10E9/L 08/20/2024 6:56 AM [facility] Monocyte Absolute 0.39 0.15 - 1.00 x10E9/L 08/20/2024 6:56 AM [facility] Eosinophil Absolute 0.12 0.00 - 0.60 x10E9/L 08/20/2024 6:56 AM [facility] Basophil Absolute 0.01 0.00 - 0.13 x10E9/L 08/20/2024 6:56 AM [facility] Blood BLOOD SPECIMEN / Unknown Lab Venipuncture / Unknown 08/20/2024 5:49 AM AVIATION NEUROPSYCHOLOGIST 08/20/2024 6:35 AM [facility] Can Woo MD LAB - HEMATOLOGY ORD ERABLES [facility] [address] [place] [address], [facility] [phone] * (ABNORMAL) COMPREHENSIVE METABOLIC PANEL (08/20/2024 5:49 AM [facility]) Only the most recent of5 resultswithin the time period is included. BUN 13 7 - 26 mg/dL 08/20/2024 7:13 AM [facility] Creatinine 0.84 0.71 - 1.16 mg/dL 08/20/2024 7:13 AM [facility] Sodium 140 136 - 145 mmol/L 08/20/2024 7:13 AM [facility] Potassium 4.1 3.5 - 4.5 mmol/L 08/20/2024 7:13 AM [facility] Chloride 110(H) 98 - 107 mmol/L 08/20/2024 7:13 AM [facility] CO2 24 22 - 29 mmol/L 08/20/2024 7:13 AM [facility] Glucose 76 70 - 99 mg/dL 08/20/2024 7:13 AM [facility] Calcium 8.2(L) 8.4 - 10.2 mg/dL 08/20/2024 7:13 AM [facility] Protein Total 5.0(L) 6.0 - 8.3 g/dL 08/20/2024 7:13 AM [facility] Albumin 2.4(L) 3.4 - 5.0 g/dL 08/20/2024 7:13 AM [facility] Bilirubin Total 0.4 0.2 - 1.2 mg/dL 08/20/2024 7:13 AM [facility] Alkaline Phosphatase 44 40 - 150 U/L 08/20/2024 7:13 AM [facility] ALT 34 5 - 55 U/L 08/20/2024 7:13 AM [facility] AST 39(H) 5 - 34 U/L 08/20/2024 7:13 AM [facility] Anion Gap 6 6 - 16 08/20/2024 7:13 AM [facility] BUN/Creatinine Ratio 15 7 - 23 08/20/2024 7:13 AM [facility] Osmolality Calculated 289 275 - 295 mOsm/kg 08/20/2024 7:13 AM [facility] Albumin/Globulin Ratio 0.9(L) 1.1 - 2.3 08/20/2024 7:13 AM [employer]IATION NEUROPSYCHOLOGIST [facility] eGFR by CKD-EPI >90 >=90 mL/min/1.7 3 m2 08/20/2024 7:13 AM [employer]IATION NEUROPSYCHOLOGIST [facility] Blood BLOOD SPECIMEN / Unknown Lab Venipuncture / Unknown 08/20/2024 5:49 AM [employer]IATION NEUROPSYCHOLOGIST 08/20/2024 6:39 AM [employer]IATION NEUROPSYCHOLOGIST Can Woo MD LAB - CHEMISTRY BINDU BOO [facility] [address] [place] [address], [facility] [phone] * (ABNORMAL) PHOSPHORUS BLOOD (08/20/2024 5:49 AM AVIATION NEUROPSYCHOLOGIST) Only the most recent of5 resultswithin the time period is included. Phosphorus 2.6(L) 2.8 - 5.1 mg/dL 08/20/2024 7:13 AM AVIATION NEUROPSYCHOLOGIST [facility] Blood BLOOD SPECIMEN / Unknown Lab Venipuncture / Unknown 08/20/2024 5:49 AM AVIATION NEUROPSYCHOLOGIST 08/20/2024 6:39 AM AVIATION NEUROPSYCHOLOGIST Can Woo MD LAB - CHEMISTRY BINDU BOO Performing Organization Address City/[facility]/ZIP Co de Phone Number [facility] [address] [place] [phone], [facility] [phone] * MAGNESIUM BLOOD (08/20/2024 5:49 AM AVIATION NEUROPSYCHOLOGIST) Only the most recent of5 resultswithin the time period is included. Magnesium 1.7 1.6 - 2.6 mg/dL 08/20/2024 7:13 AM AVIATION NEUROPSYCHOLOGIST [facility] Blood BLOOD SPECIMEN / Unknown Lab Venipuncture / Unknown 08/20/2024 5:49 AM AVIATION NEUROPSYCHOLOGIST 08/20/2024 6:39 AM AVIATION NEUROPSYCHOLOGIST Can Woo MD LAB - CHEMISTRY BINDU BOO [facility] [address] [place] [phone], [facility] [phone] * Endoscopic Ultrasonography, GI (08/19/2024 11:04 AM AVIATION NEUROPSYCHOLOGIST) Report Endoscopy POC Endoscopy Department Report _ [...] and ?oxygen saturations were monitored continuously. The ?[id number] was introduced through the mouth, and ?advanced [...] Procedure Code(s): ? --- Professional --- ? 72238, Esophagogastroduodenos copy, flexible, transoral; with endoscopic ? ultrasound examination limited to the esophagus, stomach or duodenum, ? and adjacent structures Diagnosis Code(s): ?--- Professional --- ?K80.20, Calculus of gallbladder without ?cholecystitis without obstruction ?K86.9, Disease of pancreas, unspecified ?K83.8, Other specified diseases of biliary tract ?R93.2, Abnormal findings on diagnostic imaging of ?liver and biliary tract CPT copyright 2022 [employer]. All rights reserved. The codes documented in this report are preliminary and upon block paver review may be revised to meet current compliance requirements. Raymond Miller MD 08/19/2024 12:49:34 PM This report has been signed electronically. Note Initiated On: 08/19/2024 11:04 AM Number of Addenda: 0 ? [facility] ? [address] [place] [address] [facility] 08/19/2024 11:0 4 AM AVIATION NEUROPSYCHOLOGIST Narrative Procedure Note Kay Isidro MD - 08/19/2024 12:50 PM CST (No note.) Oscar Zendejas MD GI PROCEDURE ORDERAB LES Performing Organization Address City/[facility]/ZIP Co de Phone Number [facility] * PT-INR [facility] (08/18/2024 6:40 AM AVIATION NEUROPSYCHOLOGIST) Only the most recent of3 resultswithin the time period is included. PT 14.2 12.1 - 14.8 Seconds 08/18/2024 7:34 AM AVIATION NEUROPSYCHOLOGIST [facility] INR 1.1 See Comment 08/18/2024 7:34 AM AVIATION NEUROPSYCHOLOGIST [facility] Comment:The suggested therap eutic range for standard coumadin (warfarin) therapy is an INR of 2.0-3.0. For high-risk patients (Mechanical Mitral Valve Prosthesis, etc.), the suggested prophylactic therapeutic range is an INR of 2.5-3.5. Blood BLOOD SPECIMEN / Unknown Lab Venipuncture / Unknown 08/18/2024 6:40 AM AVIATION NEUROPSYCHOLOGIST 08/18/2024 7:13 AM AVIATION NEUROPSYCHOLOGIST Can Woo MD LAB - COAGULATION OR DERABLES [facility] [address] [place] [address], [facility] [phone] * LACTIC ACID BLOOD (08/18/2024 6:40 AM AVIATION NEUROPSYCHOLOGIST) Only the most recent of4 resultswithin the time period is included. Lactic Acid-Stat 1.1 <=2.0 mmol/L 08/18/2024 7:23 AM AVIATION NEUROPSYCHOLOGIST [facility] Blood BLOOD SPECIMEN / Unknown Lab Venipuncture / Unknown 08/18/2024 6:40 AM AVIATION NEUROPSYCHOLOGIST 08/18/2024 6:53 AM AVIATION NEUROPSYCHOLOGIST Can Woo MD LAB - CHEMISTRY BINDU BOO [facility] [address] [place] [phone], [facility] [phone] * ECHO COMPLETE W CONTRAST (08/17/2024 2:37 PM AVIATION NEUROPSYCHOLOGIST) Pathologist [facility] [place] LVOT diam 2.23 cm SSM CV FUJ [...] Region Laterality Modality Ultrasound 08/17/2024 1:34 PM AVIATION NEUROPSYCHOLOGIST Narrative 08/18/2024 8:50 AM AVIATION NEUROPSYCHOLOGIST Summary ??* The left ventricle is normal [...] 1955 Gender: ? Male Accession #: ? [id number] Ht: ? 65 in Wt: ? 155 lb BSA: ? 1.81 m2 HR: ? 69 bpm BP: ? 127 / ? 70 mmHg Heart Rhythm: ? Sinus Rhythm Exam Date: ? 08/17/2024 1:34 PM Exam Room: ? 411 Patient Status: ? O/P Study Site: ? [facility] Primary Location: ? [facility] EStudy Info Technical Quality: ? Fair Exam [...] 1.00 ml Administered By: ? Kayley Koo [facility] Reaction to Contrast: ? no Reason for Technically Difficult ??Study: ? lung interference, positional limitations Staff Referring Physician: ? Can Woo Ordering Provider: ? Can Woo Attending Physician: ? Can Woo Support Group Manager: ? Kayley Koo RDCS Left Ventricle ??The [...] Exam Date: 08/17/2024 1:34 PM Exam Room: [facility] Patient Status: O/P Study Site: [facility] Primary Location: [facility] EStudy Info Technical Quality: Fair Exam Type: [...] Provider: Can Woo Attending Physician: Can Woo Support Group Manager: Kayley Koo RDCS Left Ventricle The left [...] CUPID * EKG 12-LEAD (08/17/2024 12:32 PM AVIATION NEUROPSYCHOLOGIST) Pathologist [facility] [place] Ventricular Rate 73 BPM SL MUSE Atrial Rate 73 BPM [facility] MUSE P-R Interval 176 ms [facility] MUSE QRS Duration ms 94 ms [facility] MUSE Q-T Interval ms 392 ms [facility] MUSE QTC Calculation (Bezet) 431 ms [facility] MUSE Calculated P [place] 46 degrees [facility] MUSE Calculated R [place] 47 degrees [facility] MUSE Calculated T [place] 29 degrees H MUSE Interpretation EKG NORMAL SINUS RHYTHM NORMAL ECG Confirmed by KEN KOO MD ([id number]) on 08/17/2024 5:44:27 PM [facility] MUSE 08/17/2024 12:3 2 PM [employer]IATION NEUROPSYCHOLOGIST 08/17/2024 5:44 PM [employer]IATION NEUROPSYCHOLOGIST Can Woo MD ECG ORDERABLES [facility] MUSE * (ABNORMAL) CBC W/O DIFFERENTIAL (08/17/2024 5:13 AM AVIATION NEUROPSYCHOLOGIST) [facility] WBC 5.8 4.0 - 10.7 x10E9/L 08/17/2024 5:51 AM [facility] RBC Count 3.53(L) 4.30 - 5.80 x10E12/L 08/17/2024 5:51 AM [facility] Hemoglobin 12.0(L) 13.3 - 17.5 g/dL 08/17/2024 5:51 AM [facility] Hematocrit 35.3(L) 38.7 - 51.1 % 08/17/2024 5:51 AM [facility] MCV 100.0(H) 80.0 - 98.0 fL 08/17/2024 5:51 AM [facility] MCH 34.0(H) 26.7 - 33.6 pg 08/17/2024 5:51 AM [facility] MCHC 34.0 31.7 - 36.3 g/dL 08/17/2024 5:51 AM [facility] RDW-CV 12.5 11.3 - 14.8 % 08/17/2024 5:51 AM [facility] Platelet Count 118(L) 150 - 420 x10E9/L 08/17/2024 5:51 AM [facility] MPV 10.6 7.8 - 11.4 fL 08/17/2024 5:51 AM [facility] Blood BLOOD SPECIMEN / Unknown Line Draw / Unknown 08/17/2024 5:13 AM AVIATION NEUROPSYCHOLOGIST 08/17/2024 5:22 AM [facility] Can Woo MD LAB - HEMATOLOGY ORD ERABLES [facility] [address] [place] [phone], [facility] [phone] * (ABNORMAL) BASIC METABOLIC PANEL (CALCIUM TOTAL) (08/17/2024 5:13 AM AVIATION NEUROPSYCHOLOGIST) Only the most recent of3 resultswithin the time period is included. BUN 36(H) 7 - 26 mg/dL 08/17/2024 5:50 AM [facility] Creatinine 1.50(H) 0.71 - 1.16 mg/dL 08/17/2024 5:50 AM [facility] Sodium 142 136 - 145 mmol/L 08/17/2024 5:50 AM [facility] Potassium 4.3 3.5 - 4.5 mmol/L 08/17/2024 5:50 AM [facility] Chloride 111(H) 98 - 107 mmol/L 08/17/2024 5:50 AM [facility] CO2 24 22 - 29 mmol/L 08/17/2024 5:50 AM [facility] Glucose 103(H) 70 - 99 mg/dL 08/17/2024 5:50 AM [facility] Calcium 7.8(L) 8.4 - 10.2 mg/dL 08/17/2024 5:50 AM [facility] Anion Gap 7 6 - 16 08/17/2024 5:50 AM [facility] BUN/Creatinine Ratio 24(H) 7 - 23 08/17/2024 5:50 AM [facility] Osmolality Calculated 303(H) 275 - 295 mOsm/kg 08/17/2024 5:50 AM [facility] eGFR by CKD-EPI 51(L) >=90 mL/min/1.7 3 m2 08/17/2024 5:50 AM [facility] Blood BLOOD SPECIMEN / Unknown Line Draw / Unknown 08/17/2024 5:13 AM [employer]IATION NEUROPSYCHOLOGIST 08/17/2024 5:21 AM [employer]IATION NEUROPSYCHOLOGIST Can Woo MD LAB - CHEMISTRY ORDE RABTOÑO Performing Organization Address City/[facility]/ZIP Co de Phone Number [address] [address], [place] [phone] * SYPHILIS ANTIBODY CASCADING REFLEX (08/17/2024 4:07 AM AVIATION NEUROPSYCHOLOGIST) Treponema pallidum Antibody Non-react bassem Non-react bassem 08/17/2024 5:09 AM [facility] Comment: No Laboratory evidence of syphilis infection. ?? Note: ??Circulating antibodies may be low or undetectable in early infection. ??If recent exposure is suspected, re-draw sample in 2-4 weeks and repeat testing. Blood BLOOD SPECIMEN / Unknown Line Draw / Unknown 08/17/2024 4:07 AM [employer]IATION NEUROPSYCHOLOGIST 08/17/2024 4:13 AM [employer]IATION NEUROPSYCHOLOGIST Can Woo MD LAB - SEROLOGY ORDER CHRISTIANA Performing Organization Address [facility]/ZIP Co de Phone Number [address] [address], [place] [phone] * HEMOGLOBIN A1C (08/17/2024 4:07 AM AVIATION NEUROPSYCHOLOGIST) Hemoglobin A1c 5.1 <=5.6 % 08/17/2024 9:15 AM [facility] Estimated Average Glucose 100 mg/dL 08/17/2024 9:15 AM [facility] Comment: HbA1c Interpretation: Normal : < 5.7% Pre-diabetes: 5.7-6.4% Diabetes: Equal to or greater than 6.5% Test results diagnostic of diabetes should be repeated for confirmation. Treatment target values recommended by ADA and other clinical organizations should be used to evaluate metabolic control in patients. Reference: [place] [employer], Standards of Care in Diabetes -2020 In patients 70 years and older consider HbA1c target range of 7.0-7.5% (Reference: Blu Pineda et al. MELISSADA. 2012) The [employer] assay for the measurement of HbA1c is a National Glycohemoglobin Standardization Program (NGSP) certified method. Blood BLOOD SPECIMEN / Unknown Line Draw / Unknown 08/17/2024 4:07 AM AVIATION NEUROPSYCHOLOGIST 08/17/2024 4:20 AM AVIATION NEUROPSYCHOLOGIST Can Woo MD LAB - CHEMISTRY [facility] [address] [address], [place] [phone] * (ABNORMAL) CK BLOOD (08/17/2024 4:07 AM AVIATION NEUROPSYCHOLOGIST) Only the most recent of2 resultswithin the time period is included. CK Total 1,786(H) 30 - 200 U/L 08/17/2024 4:56 AM AVIATION NEUROPSYCHOLOGIST [facility] Blood BLOOD SPECIMEN / Unknown Line Draw / Unknown 08/17/2024 4:07 AM AVIATION NEUROPSYCHOLOGIST 08/17/2024 4:23 AM AVIATION NEUROPSYCHOLOGIST Can Woo MD LAB - CHEMISTRY [place] [facility] [address] [address], [place] [phone] * (ABNORMAL) VITAMIN B12 (08/17/2024 4:07 AM AVIATION NEUROPSYCHOLOGIST) Vitamin B12 182(L) 213 - 816 pg/mL 08/17/2024 5:15 AM AVIATION NEUROPSYCHOLOGIST [facility] Blood BLOOD SPECIMEN / Unknown Line Draw / Unknown 08/17/2024 4:07 AM AVIATION NEUROPSYCHOLOGIST 08/17/2024 4:23 AM AVIATION NEUROPSYCHOLOGIST Can Woo MD LAB - CHEMISTRY [facility] Performing Organization Address City/[facility]/ZIP Co de Phone Number [facility] [address] [place] [address], [place] [phone] * (ABNORMAL) TSH (08/17/2024 4:07 AM AVIATION NEUROPSYCHOLOGIST) [facility] TSH 0.112(L) 0.350 - 4.940 uIU/mL 08/17/2024 5:15 AM [facility] Blood BLOOD SPECIMEN / Unknown Line Draw / Unknown 08/17/2024 4:07 AM AVIATION NEUROPSYCHOLOGIST 08/17/2024 4:23 AM AVIATION NEUROPSYCHOLOGIST Can Woo MD LAB - CHEMISTRY [facility] Performing Organization Address City/[facility]/ZIP Co de Phone Number [facility] [address] [place] [id number], [place] [phone] * GLUCOSE - POINT OF CARE (08/17/2024 4:05 AM AVIATION NEUROPSYCHOLOGIST) Only the most recent of3 resultswithin the time period is included. [facility] Glucose WB/POC 85 70 - 99 mg/dL 08/17/2024 4:10 AM [facility] Specimen Type Venous 08/17/2024 4:10 AM [facility] Blood BLOOD SPECIMEN / Unknown 08/17/2024 4:05 AM AVIATION NEUROPSYCHOLOGIST 08/17/2024 4:10 AM AVIATION NEUROPSYCHOLOGIST Can Woo MD LAB - POINT OF CARE ORDERABLES [facility] [address] [place] [address], [place] [phone] * (ABNORMAL) DRUG SCREEN EXPANDED TOXICOLOGY URINE PANEL (08/16/2024 10:01 PM AVIATION NEUROPSYCHOLOGIST) [facility] Expanded Drug Screen, Urine Positive(A) Negative 08/17/2024 12:20 PM AVIATION NEUROPSYCHOLOGIST [facility] TOXICOLOGY LAB Findings Acetaminophen Caffeine Codeine Codeine glucuronide Cotinine Cyclobenzaprine Diphenhydramine Duloxetine Gabapentin Hydromorphone glucuronide Lisinopril meta-Chloropheny lpiperazine(mCPP ) Morphine Nicotine Trazodone 08/17/2024 12:20 PM AVIATION NEUROPSYCHOLOGIST [facility] TOXICOLOGY LAB Urine URINE / Unknown Collection / Unknown 08/16/2024 10:01 PM AVIATION NEUROPSYCHOLOGIST 08/16/2024 10:20 PM AVIATION NEUROPSYCHOLOGIST Narrative [facility] TOXICOLOGY LAB - 08/17/2024 12:20 PM AVIATION NEUROPSYCHOLOGIST Testing performed by Liquid Chromatography-Quadrupole Time Flight Mass Spectrometry. While mass spectrometry is highly sensitive and specific, false-positive and false-negative findings may occur in rare circumstances. If consultation is needed, please contact the Clinical Pathology Resident director of vocational training at [phone] (M-F, 8 am ? 5 pm) or [phone] after hours. This test does not include THC or barbiturates. This testing was developed by the [facility] Toxicology Laboratory in keeping with CLIA requirements. The test has not been cleared or approved by the U.S. Food and Drug Administration. Can Woo MD LAB - URINE CHEMISTR Y ORDERABLES Performing Organization Address City/[facility]/ZIP Co de Phone Number [facility] TOXICOLOGY LAB [address] [place] [address], [facility] [phone] * CULTURE URINE (08/16/2024 7:46 PM AVIATION NEUROPSYCHOLOGIST) Pathologist [facility] [place] Culture Urine No growth (<100 CFU/mL) ARLEN 08/18/2024 12:06 AM AVIATION NEUROPSYCHOLOGIST [facility] MICROBIOLOGY Urine URINE SPECIMEN OBTAINED BY CLEAN CATCH PROCEDURE / Unknown Collection / Unknown 08/16/2024 7:46 PM AVIATION NEUROPSYCHOLOGIST 08/16/2024 7:53 PM AVIATION NEUROPSYCHOLOGIST Can Woo MD LAB - MICROBIOLOGY O RDERABLES Performing Organization Address City/[facility]/ZIP Co de Phone Number [facility] MICROBIOLOGY [address] [place] [address], [facility] [phone] * (ABNORMAL) BLOOD GASES ART + COOX PANEL (08/16/2024 7:01 PM AVIATION NEUROPSYCHOLOGIST) pH Arterial 7.29(L) 7.35 - 7.45 pH 08/16/2024 7:11 PM [facility] pO2 Arterial 61(L) 80 - 100 mmHg 08/16/2024 7:11 PM [facility] pCO2 Arterial 42 35 - 45 mmHg 7:11 PM [facility] HCO3 Arterial 20.2 20.0 - 30.0 mmol/L 08/16/2024 7:11 PM [facility] BE Arterial -6.1(L) -2.0 - 2.0 mmol/L 08/16/2024 7:11 PM [facility] Oxyhemoglobin Arterial 90.1 % 08/16/2024 7:11 PM [facility] Dexoyhemoglobin (HHB) % 7.0 % 08/16/2024 7:11 PM [facility] Methemoglobin <0.8 0.0 - 2.0 % 08/16/2024 7:11 PM [facility] Carboxyhemoglobin 2.6(H) 0.0 - 2.0 % 2023 7:11 PM [facility] O2 Content Arterial 16.8 Interpret within clinical context ml/dL 08/16/2024 7:11 PM [facility] Hemoglobin by COOX 13.3 12.0 - 17.6 g/dL 08/16/2024 7:11 PM [facility] O2 Saturation Arterial 93 90 - 100 % 08/16/2024 7:11 PM [facility] FI O2 Arterial 21.0 % 08/16/2024 7:11 PM [facility] Blood, arterial ARTERIAL BLOOD SPECIMEN / Unknown Arterial Puncture / Unknown 08/16/2024 7:01 PM AVIATION NEUROPSYCHOLOGIST 08/16/2024 7:09 PM [facility] - 08/16/2024 7:11 PM [facility] Carboxyhemoglobin Normal Concentration: Non-smokers: 0-2%; Smokers: 0-9%; Toxic: >20% Can Woo MD LAB - BLOOD GASES OR DERABLES [facility] [address] [place] [address], [facility] [phone] * LACTIC ACID BLOOD REFLEX TO REPEAT (08/16/2024 3:18 PM AVIATION NEUROPSYCHOLOGIST) Lactic Acid-Stat 1.7 <=2.0 mmol/L 08/16/2024 3:51 PM [facility] Blood BLOOD SPECIMEN / Unknown Venipuncture / Unknown 08/16/2024 3:18 PM AVIATION NEUROPSYCHOLOGIST 08/16/2024 3:26 PM AVIATION NEUROPSYCHOLOGIST Can Woo MD LAB - CHEMISTRY BINDU BOO Performing Organization Address City/[facility]/ZIP Co de Phone Number [address] [address], [place] [phone] * (ABNORMAL) URINE MICROSCOPIC ONLY REFLEX TO CULTURE (08/16/2024 9:23 AM AVIATION NEUROPSYCHOLOGIST) Reflex Status Culture not indicated 08/16/2024 10:57 AM [facility] RBC UA 6-10(A) None Seen, 0-2, 3-5 /HPF 08/16/2024 10:57 AM [facility] WBC UA 0-5 None Seen, 0-5 /HPF 08/16/2024 10:57 AM [facility] Bacteria UA 1+(A) None /HPF 08/16/2024 10:57 AM [facility] Squamous Epithelial Cells UA 6-10(A) None Seen, 0-2, 3-5 /HPF 08/16/2024 10:57 AM [facility] Mucus UA 2+ /LPF 08/16/2024 10:57 AM [facility] Hyaline Casts UA 3-5(A) None Seen, 0-2 /LPF 08/16/2024 10:57 AM [facility] Urine URINE SPECIMEN OBTAINED BY CLEAN CATCH PROCEDURE / Unknown Collection / Unknown 08/16/2024 9:23 AM AVIATION NEUROPSYCHOLOGIST 08/16/2024 9:44 AM AVIATION NEUROPSYCHOLOGIST Cresencio Gonzalez MD LAB - URINALYSIS O RDERABLES Performing Organization Address City/[facility]/ZIP Co de Phone Number [address] [phone] [phone] * (ABNORMAL) URINALYSIS REFLEX MICROSCOPIC REFLEX CULTURE (08/16/2024 9:23 AM AVIATION NEUROPSYCHOLOGIST) Color UA Rosario(A) Straw, Yellow 08/16/2024 9:53 AM [facility] Clarity UA Slt Cloudy(A) Clear 08/16/2024 9:53 AM [facility] Specific [place] UA 1.041(H) 1.005 - 1.030 08/16/2024 9:53 AM [facility] pH UA 5.0 5.0 - 8.0 pH 08/16/2024 9:53 AM [facility] Protein UA 1+(A) Negative 08/16/2024 9:53 AM [facility] Glucose UA Negative Negative 08/16/2024 9:53 AM [facility] Ketone UA Negative Negative 08/16/2024 9:53 AM [facility] Bilirubin UA Negative Negative 08/16/2024 9:53 AM [facility] Blood UA 3+(A) Negative 08/16/2024 9:53 AM [facility] Nitrite UA Negative Negative 08/16/2024 9:53 AM [facility] Leukocyte Esterase Negative Negative 08/16/2024 9:53 AM [facility] Urobilinogen UA 2.0(A) Negative mg/dL 08/16/2024 9:53 AM [facility] Urine URINE SPECIMEN OBTAINED BY CLEAN CATCH PROCEDURE / Unknown Collection / Unknown 08/16/2024 9:23 AM AVIATION NEUROPSYCHOLOGIST 08/16/2024 9:44 AM [facility] - 08/16/2024 9:53 AM AVIATION NEUROPSYCHOLOGIST Cresencio Gonzalez MD LAB - URINALYSIS O RDERABLES [facility] [address] [place] [phone], [facility] [phone] * UREA NITROGEN URINE RANDOM (08/16/2024 9:23 AM AVIATION NEUROPSYCHOLOGIST) Urea Nitrogen Random Urine 310 Not Established mg/dL 08/16/2024 10:08 AM [facility] Urine URINE SPECIMEN OBTAINED BY CLEAN CATCH PROCEDURE / Unknown Collection / Unknown 08/16/2024 9:23 AM AVIATION NEUROPSYCHOLOGIST 08/16/2024 9:44 AM [facility] Francesco Malik MD LAB - URINE DRAWING MACHINE OPERATOR RY ORDERABLES [facility] [address] [place] [address], [facility] [phone] * (ABNORMAL) URINE DRUG SCREEN IMMUNOASSAY (08/16/2024 9:23 AM [facility]) [facility] Amphetamines Screen Urine Negative Negative : < 1000 ng/mL 08/16/2024 10:07 AM [facility] Barbiturates Screen Urine Negative Negative : < 200 ng/mL 08/16/2024 10:07 AM [facility] Benzodiazepine Screen Urine Negative Negative : < 200 ng/mL 08/16/2024 10:07 AM [facility] Opiates Urine Positive(A) Negative : < 300 ng/mL 08/16/2024 10:07 AM [facility] Comment:Positive urine opiat e screening results should be confirmed by another generally accepted non-immunological method such as gas chromatography or mass spectrometry. Cocaine Metabolites Urine Negative Negative : < 300 ng/mL 08/16/2024 10:07 AM [facility] Phencyclidine Screen Urine Negative Negative : < 25 ng/ml 08/16/2024 10:07 AM [facility] Cannabinoids Screen Urine Negative Negative : <50 ng/mL 08/16/2024 10:07 AM [facility] Methadone Screen Urine Negative Negative : < 300 ng/mL 08/16/2024 10:07 AM [facility] Fentanyl Screen Urine Positive(A) Negative : <1.5 ng/mL 08/16/2024 10:07 AM [facility] Comment:Positive urine fenta nyl screening results should be confirmed by another generally accepted non-immunological method such as gas chromatography or mass spectrometry. Urine URINE / Unknown Collection / Unknown 08/16/2024 9:23 AM AVIATION NEUROPSYCHOLOGIST 08/16/2024 9:44 AM [facility] Narrative [facility] - 08/16/2024 10:07 AM AVIATION NEUROPSYCHOLOGIST The Urine Toxicology Screening Panel does not screen for Propoxyphene, Meprobamate, Carisoprodol, Trazodone, [id number] medications and/or volatiles (Acetone, Isopropanol, Methanol or Ethylene Glycol). Ethanol, Salicylate, Acetaminophen, Tricyclic Antidepressants and several therapeutic drugs may be individually assayed in serum or plasma specimen. Toxicology testing by the [facility] is an aid to medical diagnosis and treatment of patients. No documented chain of custody was maintained. Results are intended to be used for clinical purposes only. ? Cresencio Gonzalez MD LAB - URINE CHEMIS TRY ORDERABLES Performing Organization Address [facility] Co de Phone Number [address] [address], [facility] [phone] * CREATININE URINE RANDOM (08/16/2024 9:23 AM AVIATION NEUROPSYCHOLOGIST) Creatinine Urine 113.55 Not Established mg/dL 08/16/2024 10:08 AM AVIATION NEUROPSYCHOLOGIST [facility] Urine URINE SPECIMEN OBTAINED BY CLEAN CATCH PROCEDURE / Unknown Collection / Unknown 08/16/2024 9:23 AM AVIATION NEUROPSYCHOLOGIST 08/16/2024 9:44 AM AVIATION NEUROPSYCHOLOGIST Francesco Malik MD LAB - URINE DRAWING MACHINE OPERATOR RY ORDERABLES Performing Organization Address [facility] Co de Phone Number [address] [address], [place] [phone] * LYTES (NA K) URINE RANDOM PANEL (08/16/2024 9:23 AM AVIATION NEUROPSYCHOLOGIST) Sodium Urine 60 Not Established mmol/L 08/16/2024 10:08 AM AVIATION NEUROPSYCHOLOGIST [facility] Potassium Urine 22.6 Not Established mmol/L 08/16/2024 10:08 AM [facility] Urine URINE SPECIMEN OBTAINED BY CLEAN CATCH PROCEDURE / Unknown Collection / Unknown 08/16/2024 9:23 AM AVIATION NEUROPSYCHOLOGIST 08/16/2024 9:44 AM AVIATION NEUROPSYCHOLOGIST Francesco Malik MD LAB - URINE DRAWING MACHINE OPERATOR RY ORDERABLES Performing Organization Address City/[facility]/ZIP Co de Phone Number [facility] [address] [place] [address], [facility] [phone] * (ABNORMAL) TRICYCLICS SCREEN BLOOD (08/16/2024 8:52 AM AVIATION NEUROPSYCHOLOGIST) Tricyclic Antidepressants 248(H) 80 - 200 ng/mL 08/16/2024 9:39 AM [facility] Blood BLOOD SPECIMEN / Unknown Venipuncture / Unknown 08/16/2024 8:52 AM AVIATION NEUROPSYCHOLOGIST 08/16/2024 9:03 AM AVIATION NEUROPSYCHOLOGIST Narrative [facility] - 08/16/2024 9:39 AM AVIATION NEUROPSYCHOLOGIST Many drugs significantly cross-react with this assay, [...] Gonzalez MD LAB - CHEMISTRY OR DERABLES [facility] [address] [place] [address], [facility] [phone] * (ABNORMAL) HEPATIC FUNCTION PANEL (08/16/2024 8:52 AM AVIATION NEUROPSYCHOLOGIST) Protein Total 5.7(L) 6.0 - 8.3 g/dL 9:36 AM [facility] Albumin 2.7(L) 3.4 - 5.0 g/dL 08/16/2024 9:36 AM [facility] Bilirubin Total 0.4 0.2 - 1.2 mg/dL 08/02 9:36 AM [facility] Bilirubin Conjugated 0.3 0.1 - 0.5 mg/dL 08/16/2024 9:36 AM [facility] Bilirubin Unconjugated 0.1 Unconjugated Bilirubin is a calculated value: Reference ranges have not been established. mg/dL 08/16/2024 9:36 AM [facility] Alkaline Phosphatase 64 40 - 150 U/L 08/16/2024 9:36 AM [facility] ALT 41 5 - 55 U/L 08/16/2024 9:36 AM [facility] AST 78(H) 5 - 34 U/L 08/16/2024 9:36 AM [facility] Albumin/Globulin Ratio 0.9(L) 1.1 - 2.3 08/16/2024 9:36 AM [facility] Blood BLOOD SPECIMEN / Unknown Venipuncture / Unknown 08/16/2024 8:52 AM AVIATION NEUROPSYCHOLOGIST 08/16/2024 9:12 AM [facility] Francesco Malik MD LAB - CHEMISTRY ORD ERABLES [facility] [address] [place] [address], [facility] [phone] * (ABNORMAL) SALICYLATE LEVEL BLOOD (08/16/2024 8:52 AM AVIATION NEUROPSYCHOLOGIST) Salicylate <5(L) 15 - 30 mg/dL 08/16/2024 9:36 AM [facility] Blood BLOOD SPECIMEN / Unknown Venipuncture / Unknown 08/16/2024 8:52 AM AVIATION NEUROPSYCHOLOGIST 08/16/2024 9:12 AM [facility] - 08/16/2024 9:36 AM AVIATION NEUROPSYCHOLOGIST This test is not intended for use with low-dose aspirin therapy. Most patients on low-dose aspirin for cardiovascular prophylaxis will have serum concentrations near or below the lower limit of the analytical range. Cresencio Gonzalez MD LAB - CHEMISTRY OR DERABLES Performing Organization Address [facility] Co de Phone Number [address] [address], [facility] [phone] * ACETAMINOPHEN LEVEL (08/16/2024 8:52 AM AVIATION NEUROPSYCHOLOGIST) Pathologist [facility] [place] Acetaminophen <3.0 <3.0 ug/mL 08/16/2024 9:36 AM [facility] Blood BLOOD SPECIMEN / Unknown Venipuncture / Unknown 08/16/2024 8:52 AM AVIATION NEUROPSYCHOLOGIST 08/16/2024 9:12 AM [facility] - 08/16/2024 9:36 AM [facility] Acetaminophen Toxicity Levels (Hours Post Ingestion): ? [...] may alter the peak level. Contact the [facility] at or reserved for healthcare professionals to assist you in evaluating potentially toxic acetaminophen levels. Cresencio Gonzalez MD LAB - CHEMISTRY OR DERABLES Performing Organization Address [facility]/ZIP Co de Phone Number [facility] [address] [place] [phone], [facility] [phone] * XR PELVIS 1 OR 2VW (08/16/2024 7:20 AM AVIATION NEUROPSYCHOLOGIST) Anatomical Region Laterality Modality Pelvis Digital Radiogra phy 08/16/2024 7:22 AM AVIATION NEUROPSYCHOLOGIST Impressions 08/16/2024 3:31 PM AVIATION NEUROPSYCHOLOGIST IMPRESSION: No acute displaced fracture or dislocation of pelvis is identified. Report dictated by Rafi Vicente MD (residential program worker). Mason Brizuela have personally reviewed and interpreted this examination/study. > Interpreting Provider: Mason Lucero on 08/16/2024 3:31 PM Narrative 08/16/2024 3:31 PM AVIATION NEUROPSYCHOLOGIST EXAMINATION: XR PELVIS 1 OR 2VW DATE/TIME OF EXAM: ??08/16/2024 7:22 AM, LOCATION [place] HISTORY: Trauma Fracture suspected COMPARISON: No prior [...] DATE/TIME OF EXAM: 08/16/2024 7:22 AM, LOCATION [facility] HISTORY: Trauma Fracture suspected COMPARISON: No prior [...] identified. Report dictated by Rafi Vicente MD (residential program worker). Mason Brizuela have personally reviewed and interpreted this examination/study. > Interpreting Provider: Mason Lucero on 08/16/2024 3:31 PM Cresencio Gonzalez MD DIAGNOSTIC IMAGING ORDERABLES * CT CHEST ABDOMEN PELVIS W CONT - Abdomen-pelvis trauma, blunt or penetrating (08/16/2024 6:58 AM AVIATION NEUROPSYCHOLOGIST) Anatomical Region Laterality Modality Chest, Abdomen, Pelvis Computed Tomography 08/16/2024 8:11 AM AVIATION NEUROPSYCHOLOGIST Impressions 08/16/2024 5:01 PM AVIATION NEUROPSYCHOLOGIST Impression 1. No acute visceral, vascular, or [...] gastroesophageal reflux/esophagitis. Report dictated by Bryon Watson MD(residential program worker). I, Viviana Rain MD have personally reviewed and interpreted this examination/study. > Interpreting Provider: Viviana Rain MD on 08/16/2024 5:01 PM Narrative 08/16/2024 5:01 PM AVIATION NEUROPSYCHOLOGIST PROCEDURE: ??CT CHEST ABDOMEN PELVIS W CONT, DATE/TIME OF EXAM: ??08/16/2024 7:20 AM, LOCATION ??[facility] INDICATION: Trauma COMPARISON: None. EXAMINATION: Computed tomography [...] CONT, DATE/TIME OF EXAM:08/16/2024 7:20 AM, LOCATION [facility] INDICATION: Trauma COMPARISON: None. EXAMINATION: Computed tomography [...] ofgastroesophageal reflux/esophagitis. Report dictated by Bryon Watson MD(residential program worker). Viviana Brizuela MD have personally reviewed and interpreted this examination/study. > Interpreting Provider: Viviana Rain MD on 08/16/2024 5:01 PM Cresencio Gonzalez MD CT ORDERABLES * CT Angio Lower Extremity Right (08/16/2024 6:58 AM AVIATION NEUROPSYCHOLOGIST) Anatomical Region Laterality Modality Lower Extremity Computed Tomogra phy 08/16/2024 7:57 AM AVIATION NEUROPSYCHOLOGIST Impressions 08/16/2024 5:06 PM AVIATION NEUROPSYCHOLOGIST IMPRESSION: Three-vessel runoff of bilateral lower extremity arteries to the level of ankle. Of note, the dorsalis pedis and tibialis posterior arteries are diminutive bilaterally likely secondary to diffuse spasm but patent without evidence of contrast extravasation to suggest arterial injury or active bleeding. > Dictated by Felix Awad MD (residential program worker). Viviana Brizuela MD have personally reviewed and interpreted this examination/study. > Interpreting Provider: Viviana Rain MD on 08/16/2024 5:06 PM Narrative 08/16/2024 5:06 PM AVIATION NEUROPSYCHOLOGIST PROCEDURE: ??CT ANGIO LOWER EXTREMITY RIGHT, CT ANGIO LOWER EXTREMITY LEFT, DATE/TIME OF EXAM: ??08/16/2024 7:20 AM, LOCATION ??[facility] INDICATION: W10.8XXA: Fall (on) (from) other stairs [...] DATE/TIME OF EXAM: 08/16/2024 7:20 AM, LOCATION [facility] INDICATION: W10.8XXA: Fall (on) (from) other stairs [...] the technologist and sent to the workstation forWizelineview. FINDINGS: Right common iliac artery: The imaged [...] bleeding. > Dictated by Felix Awad MD (residential program worker). Viviana Brizuela MD have personally reviewed and interpreted this examination/study. > Interpreting Provider: Viviana Rain MD on 08/16/2024 5:06 PM Chet Henning MD CT ORDERABLES * CT Angio Lower Extremity Left (08/16/2024 6:58 AM AVIATION NEUROPSYCHOLOGIST) Anatomical Region Laterality Modality Lower Extremity Computed Tomogra phy 08/16/2024 7:57 AM AVIATION NEUROPSYCHOLOGIST Impressions 08/16/2024 5:06 PM AVIATION NEUROPSYCHOLOGIST IMPRESSION: Three-vessel runoff of bilateral lower extremity arteries to the level of ankle. Of note, the dorsalis pedis and tibialis posterior arteries are diminutive bilaterally likely secondary to diffuse spasm but patent without evidence of contrast extravasation to suggest arterial injury or active bleeding. > Dictated by Felix Awad MD (residential program worker). Viviana Brizuela MD have personally reviewed and interpreted this examination/study. > Interpreting Provider: Viviana Rain MD on 08/16/2024 5:06 PM Narrative 08/16/2024 5:06 PM AVIATION NEUROPSYCHOLOGIST PROCEDURE: ??CT ANGIO LOWER EXTREMITY RIGHT, CT ANGIO LOWER EXTREMITY LEFT, DATE/TIME OF EXAM: ??08/16/2024 7:20 AM, LOCATION ??[facility] INDICATION: W10.8XXA: Fall (on) (from) other stairs [...] DATE/TIME OF EXAM: 08/16/2024 7:20 AM, LOCATION [facility] INDICATION: W10.8XXA: Fall (on) (from) other stairs [...] bleeding. > Dictated by Felix Awad MD (residential program worker). I, Viviana Rain MD have personally reviewed and interpreted this examination/study. > Interpreting Provider: Viviana Rain MD on 08/16/2024 5:06 PM Chet Henning MD CT ORDERABLES * CT LUMBAR SPINE WO CONTRAST - T/L-spine trauma, Spine fracture (08/16/2024 6:58 AM AVIATION NEUROPSYCHOLOGIST) Anatomical Region Laterality Modality Spine Computed Tomogra phy 08/16/2024 6:28 AM AVIATION NEUROPSYCHOLOGIST Impressions 08/16/2024 10:30 AM AVIATION NEUROPSYCHOLOGIST IMPRESSION: 1.No acute intracranial hemorrhage, midline shift, [...] findings. Report dictated by Rafi Vicente MD (residential program worker). I, Ruby Villanueva MD have personally reviewed and interpreted this examination/study. > Interpreting Provider: Ruby Villanueva MD on 08/16/2024 10:30 AM Narrative 08/16/2024 10:30 AM AVIATION NEUROPSYCHOLOGIST PROCEDURE: ??CT HEAD WO CONTRAST, CT LUMBAR SPINE WO CONTRAST, CT THORACIC SPINE WO CONTRAST, CT CERVICAL SPINE WO CONTRAST, DATE/TIME OF EXAM: 08/16/2024 7:20 AM, LOCATION ??[facility] INDICATION: Trauma EXAMINATION: 1.Computed tomography (CT) of [...] DATE/TIME OF EXAM: 08/16/2024 7:20 AM, LOCATION [facility] INDICATION: Trauma EXAMINATION: 1.Computed tomography (CT) of [...] findings. Report dictated by Rafi Vicente MD (residential program worker). I, Ruby Villanueva MD have personally reviewed and interpretedthis examination/study. > Interpreting Provider: Ruby Villanueva MD on 08/16/2024 10:30AM Cresencio Gonzalez MD CT ORDERABLES * CT THORACIC SPINE WO CONTRAST - T/L-spine trauma, spine fracture (08/16/2024 6:58 AM AVIATION NEUROPSYCHOLOGIST) Anatomical Region Laterality Modality Spine Computed Tomogra phy 08/16/2024 6:28 AM AVIATION NEUROPSYCHOLOGIST Impressions 08/16/2024 10:30 AM AVIATION NEUROPSYCHOLOGIST IMPRESSION: 1.No acute intracranial hemorrhage, midline shift, [...] findings. Report dictated by Rafi Vicente MD (residential program worker). IRuby MD have personally reviewed and interpreted this examination/study. > Interpreting Provider: Ruby Villanueva MD on 08/16/2024 10:30 AM Narrative 08/16/2024 10:30 AM AVIATION NEUROPSYCHOLOGIST PROCEDURE: ??CT HEAD WO CONTRAST, CT LUMBAR SPINE WO CONTRAST, CT THORACIC SPINE WO CONTRAST, CT CERVICAL SPINE WO CONTRAST, DATE/TIME OF EXAM: 08/16/2024 7:20 AM, LOCATION ??[facility] INDICATION: Trauma EXAMINATION: 1.Computed tomography (CT) of [...] DATE/TIME OF EXAM: 08/16/2024 7:20 AM, LOCATION [facility] INDICATION: Trauma EXAMINATION: 1.Computed tomography (CT) of [...] findings. Report dictated by Rafi Vicente MD (residential program worker). Ruby Brizuela MD have personally reviewed and interpretedthis examination/study. > Interpreting Provider: Ruby Villanueva MD on 08/16/2024 10:30AM Cresencio Gonzalez MD CT ORDERABLES * CT CERVICAL SPINE WO CONTRAST - C-Spine Trauma, Spine fracture (08/16/2024 6:58 AM AVIATION NEUROPSYCHOLOGIST) Anatomical Region Laterality Modality Spine Computed Tomogra phy 08/16/2024 6:28 AM AVIATION NEUROPSYCHOLOGIST Impressions 08/16/2024 10:30 AM AVIATION NEUROPSYCHOLOGIST IMPRESSION: 1.No acute intracranial hemorrhage, midline shift, [...] findings. Report dictated by Rafi Vicente MD (residential program worker). Ruby Brizuela MD have personally reviewed and interpreted this examination/study. > Interpreting Provider: Ruby Villanueva MD on 08/16/2024 10:30 AM Narrative 08/16/2024 10:30 AM AVIATION NEUROPSYCHOLOGIST PROCEDURE: ??CT HEAD WO CONTRAST, CT LUMBAR SPINE WO CONTRAST, CT THORACIC SPINE WO CONTRAST, CT CERVICAL SPINE WO CONTRAST, DATE/TIME OF EXAM: 08/16/2024 7:20 AM, LOCATION [place] [place]ICATION: Trauma EXAMINATION: 1.Computed tomography (CT) of [...] DATE/TIME OF EXAM: 08/16/2024 7:20 AM, LOCATION [facility] [place] INDICATION: Trauma EXAMINATION: 1.Computed tomography (CT) of [...] findings. Report dictated by Rafi Vicente MD (residential program worker). Ruby Brizuela MD have personally reviewed and interpretedthis examination/study. > Interpreting Provider: Ruby Villanueva MD on 08/16/2024 10:30AM Cresencio Gonzalez MD CT ORDERABLES * CT HEAD WO CONTRAST - Head Trauma, CSF leak, mental status changes (08/16/2024 6:58 AM AVIATION NEUROPSYCHOLOGIST) Anatomical Region Laterality Modality Head Computed Tomogra phy 08/16/2024 6:28 AM AVIATION NEUROPSYCHOLOGIST Impressions 08/16/2024 10:30 AM AVIATION NEUROPSYCHOLOGIST IMPRESSION: 1.No acute intracranial hemorrhage, midline shift, [...] findings. Report dictated by Rafi Vicente MD (residential program worker). I, Ruby Villanueva MD have personally reviewed and interpreted this examination/study. > Interpreting Provider: Ruby Villanueva MD on 08/16/2024 10:30 AM Narrative 08/16/2024 10:30 AM AVIATION NEUROPSYCHOLOGIST PROCEDURE: ??CT HEAD WO CONTRAST, CT LUMBAR SPINE WO CONTRAST, CT THORACIC SPINE WO CONTRAST, CT CERVICAL SPINE WO CONTRAST, DATE/TIME OF EXAM: 08/16/2024 7:20 AM, LOCATION [place] [place] INDICATION: Trauma EXAMINATION: 1.Computed tomography (CT) of [...] DATE/TIME OF EXAM: 08/16/2024 7:20 AM, LOCATION [facility] [place] INDICATION: Trauma EXAMINATION: 1.Computed tomography (CT) of [...] findings. Report dictated by Rafi Vicente MD (residential program worker). I, Ruby Villanueva MD have personally reviewed and interpretedthis examination/study. > Interpreting Provider: Ruby Villanueva MD on 08/16/2024 10:30AM Cresencio Gonzalez MD CT ORDERABLES * XR CHEST 1VW PORTABLE (08/16/2024 6:11 AM AVIATION NEUROPSYCHOLOGIST) Anatomical Region Laterality Modality Chest Digital Radiogra phy 08/16/2024 6:04 AM AVIATION NEUROPSYCHOLOGIST Narrative 08/16/2024 2:29 PM AVIATION NEUROPSYCHOLOGIST PROCEDURE: ??XR CHEST 1VW PORTABLE, DATE/TIME OF EXAM: ??08/16/2024 5:44 AM, LOCATION [place] [place] INDICATION: Trauma ADDITIONAL CLINICAL INFORMATION: Ordering Provider [...] visualized. Report dictated by Rafi Vicente MD (residential program worker). Mason Brizuela have personally reviewed and interpreted this examination/study. > Interpreting Provider: Mason Lucero on 08/16/2024 2:29 PM Procedure Note Mason Lucero MD - 08/16/2024 PROCEDURE: XR CHEST 1VW PORTABLE, DATE/TIME OF EXAM: 08/16/2024 5:44AM, LOCATION [facility] [place] INDICATION: Trauma ADDITIONAL CLINICAL INFORMATION: Ordering Provider [...] visualized. Report dictated by Rafi Vicente MD (residential program worker). Mason Brizuela have personally reviewed and interpreted this examination/study. > Interpreting Provider: Mason Lucero on 08/16/2024 2:29 PM Crseencio Gonzalez MD DIAGNOSTIC IMAGING ORDERABLES * PTT [facility] (08/16/2024 5:50 AM AVIATION NEUROPSYCHOLOGIST) APTT 27.4 23.0 - 38.4 Seconds 08/16/2024 6:38 AM AVIATION NEUROPSYCHOLOGIST [facility] Comment:Suggested therapeuti c range for full dose I.V. unfractionated heparin therapy for venous thromboembolism is 71 to 109 seconds. Blood BLOOD SPECIMEN / Unknown Venipuncture / Unknown 08/16/2024 5:50 AM AVIATION NEUROPSYCHOLOGIST 08/16/2024 6:12 AM AVIATION NEUROPSYCHOLOGIST Cresencio Gonzalez MD LAB - COAGULATION ORDERABLES Performing Organization Address City/[facility]/ZIP Co de Phone Number [address] [address], [place] [phone] * TYPE + SCREEN PANEL (08/16/2024 5:50 AM AVIATION NEUROPSYCHOLOGIST) Antibody Screen NEG 6:49 AM AVIATION NEUROPSYCHOLOGIST [facility] ABO Rh B POS 08/16/2024 6:49 AM AVIATION NEUROPSYCHOLOGIST [facility] Blood Bank BLOOD SPECIMEN / Unknown Venipuncture / Unknown 08/16/2024 5:50 AM AVIATION NEUROPSYCHOLOGIST 08/16/2024 6:13 AM AVIATION NEUROPSYCHOLOGIST Cresencio Gonzalez MD LAB - BLOOD BANK O RDERABLES Performing Organization Address [facility] Co de Phone Number [facility] [address] [place] [phone], [place] [phone] * LIPASE BLOOD (08/16/2024 5:50 AM AVIATION NEUROPSYCHOLOGIST) Lipase 13 8 - 78 U/L 08/16/2024 6:31 AM AVIATION NEUROPSYCHOLOGIST [facility] Blood BLOOD SPECIMEN / Unknown Venipuncture / Unknown 08/16/2024 5:50 AM AVIATION NEUROPSYCHOLOGIST 08/16/2024 6:10 AM AVIATION NEUROPSYCHOLOGIST Narrative [facility] - 08/16/2024 6:31 AM AVIATION NEUROPSYCHOLOGIST Lipase results from the [employer] Alinity analyzer may not be comparable with other methodologies. Cresencio Gonzalez MD LAB - CHEMISTRY OR DERABLES Performing Organization Address City/[facility]/ZIP Co de Phone Number [address] [address], [place] [phone] * ALCOHOL ETHYL BLOOD (08/16/2024 5:50 AM [facility]) Ethanol (mg/dL) <10 <10 mg/dL 6:31 AM [facility] Ethanol Calculated (g/dL) <0.010 <=0.010 g/dL 08/16/2024 6:31 AM [facility] Blood BLOOD SPECIMEN / Unknown Venipuncture / Unknown 08/16/2024 5:50 AM AVIATION NEUROPSYCHOLOGIST 08/16/2024 6:10 AM [facility] Narrative [facility] - 08/16/2024 6:31 AM [facility] Ethanol Interp <10: None Detected. Depression of FIELD MECHANIC/SITE LEAD: >100 mg/dl Potentially Critical: >250 mg/dl Potentially [...] Gonzalez MD LAB - CHEMISTRY OR DERABLES [facility] [address] [place] [address], [facility] [phone] Care Teams Cuff Setter Lockstitch Relationship Specialty Start Date End Date Mark Carmichael DO [address] [place] [id number] PCP - General Family Medicine 08/16/24
--- OUTSIDE RECORDS SUMMARY | 2024-08-20 13:48 | XMS_ITS | Clinical Summary ---
Author Organization [facility] Address On license of [facility] [place] [address] [place] [address] Care Team Providers Care Motors And Generators Inspector Name Role Phone Mark Carmichael DO Primary Care Provider [phone] Allergies Active Allergy Reactions Criticality Noted Date Comments Ibuprofen Shortness of Breath High 07/25/2022 Nsaids Shortness of Breath,GI Upset High 016 Prednisone Shortness of Breath High 07/25/2022 Medications morphine (MSIR) 15 MG tabletIndication s:Chronic Pain Take 30 mg by mouth every 8 (eight) hours as needed. Indications: Chronic Pain Active cyclobenzaprine (FLEXERIL) 10 MG tabletIndication s:Muscle Spasm Take 10 mg by mouth 3 (three) times daily as needed for Muscle Spasms. Indications: Muscle Spasm Active LORazepam (ATIVAN) 1 MG tabletIndication s:Anxiety Take 1 mg by mouth 2 (two) times daily as needed for Anxiety. Indications: Feeling Anxious Active gabapentin (NEURONTIN) 300 MG capsuleIndicatio ns:Neuropathy Take 300 mg by mouth 2 (two) times daily. Indications: Nerve Disease Active HYDROcodone-acet aminophen (NORCO) 10-325 MG tablet Take 1 tablet by mouth every 6 (six) hours as needed for Pain. Active FLUoxetine (PROZAC) 10 MG tabletIndication s:Depression Take 20 mg by mouth daily. Indications: Depression Active traZODone (DESYREL) 100 MG tabletIndication s:Sleep disorders Take 100 mg by mouth nightly at bedtime. Indications: Sleep disorders Active albuterol sulfate HFA 108 (90 Base) MCG/ACT inhalerIndicatio ns:Wheezing 2 Active benzonatate (TESSALON) 200 MG capsule TAKE 1 CAPSULE BY MOUTH TWICE A DAY NEEDED FOR COUGH 2 Active fluticasone propionate (FLONASE) 50 MCG/ACT nasal sprayIndications :Rhinitis 2 Active VASCEPA 1 g capsule Take 2 g by mouth 2 (two) times daily. 1 Active ipratropium-albu terol (COMBIVENT RESPIMAT) 20-100 MCG/ACT inhalerIndicatio ns:COPD, exacerbation Inhale 1 puff into the lungs every 6 (six) hours as needed for Wheezing. Please provide assembled. 4 g 1 2 Active ferrous sulfate, 65 mg elemental, 325 (65 FE) MG tabletIndication s:Anemia Take 1 tablet (325 mg total) by mouth daily with breakfast. 30 tablet 1 2 Active folic acid (FOLVITE) 1 MG tabletIndication s:Anemia Take 1 tablet (1 mg total) by mouth daily. 30 tablet 1 2 Active acetaminophen (TYLENOL) 500 MG tabletIndication s:Chronic Pain Take 500 mg by mouth every 6 (six) hours as needed. Indications: Chronic Pain 2 Active senna-docusate 8.6-50 MG CapIndications:C onstipation Take 1 capsule by mouth as needed. Indications: Constipation 2 Active Aspirin-Acetamin ophen-Caffeine (EXCEDRIN EXTRA STRENGTH OR)Indications:H eadache Take 1 tablet by mouth as needed. Indications: Headache 2 Active sodium chloride 0.9 % solutionIndicati ons:Antibiotic Therapy Inject 10 mLs into the vein 2 (two) times daily. Indications: Treatment with Antibiotics 2 Active sodium chloride 0.9 % solutionIndicati ons:Antibiotic Therapy Inject 10 mLs into the vein as needed. Indications: Treatment with Antibiotics 2 Active HEPARIN & NACL LOCK FLUSH IVIndications:An tibiotic Therapy Inject 5 mLs into the vein daily. Indications: Treatment with Antibiotics 2 Active acetaminophen-co deine (TYLENOL #4) 300-60 MG tabletIndication s:Chronic Pain Take 1 tablet by mouth every 6 (six) hours as needed for Pain. Indications: Chronic Pain 2 Active Active Problems Problem Noted Date Diagnosed Date Respiratory failure ([facility]/HCC [facility]) 07/25/2022 Immunizations Name Administration Dates Next Due Fluzone 6 Months+ Quad (0.5 mL Prefilled Syringe) 07/26/2022(Deferred: Other) Family History Medical History Relation Comments Heart Disease Father Relation Status Comments Father Social History Tobacco Use Types Packs/Day Years Used Date Smoking Tobacco: Former Cigarettes 0.5 50 Smokeless Tobacco: Never Tobacco Cessation:Counseling Given: Not Answered Alcohol Use Standard Drinks/Week Comments Not Currently 0 (1 standard drink = 0.6 oz pur e alcohol) Sex and Gender Information Value Date Recorded Sex Assigned at Not on file Legal Sex Male 8:52 PM CDT Gender Identity Not on file Sexual Orientation Not on file Last Filed Vital Signs Vital Sign Reading Time Taken Comments Blood Pressure 162/92 08/27/2022 12:55 PM EDM OPERATOR Pulse 64 08/27/2022 12:55 PM EDM OPERATOR Temperature 36.2 ??C (97.2 ??F) 08/27/2022 1 2:55 PM EDM OPERATOR Respiratory Rate 22 08/27/2022 12:5 5 PM EDM OPERATOR Oxygen Saturation 97% 08/27/2022 12: 55 PM EDM OPERATOR Inhaled Oxygen Concentration - - Weight 67.5 kg (148 lb 12.8 oz) 07/28/2022 3:26 AM EDM OPERATOR Height 165.1 cm (5' 5 ) 07/25/2022 1:30 PM EDM OPERATOR Body Mass Index 24.76 07/25/2022 1:30 PM EDM OPERATOR Plan of Treatment Health Maintenance Due Date Last Done Comments Colorectal Cancer Screening Colonoscopy (10 Years) 1957 Hepatitis C 1975 Zoster Vaccines (1 of 2) 2007 Annual Medicare Wellness Visit 2022 Pneumococcal Vaccine: 65+ Years (1 of 1 - PCV) 2022 DTaP, Tdap and Td Vaccines (2 - Td or Tdap) 07/03/2023 07/03/2013 COVID-19 Vaccine ( season) 2024 06/14/2021, 11/26/2020, 11/03/2020 Influenza Adult (#1) 2024 06/14/2021, 07/18/2020, 05/28/2019, Additional history exists RSV Immunization or 60+ Years (1 - 1-dose 75+ series) 2032 Meningococcal Vaccine Aged Out No yogi hansa eligible based on patient's age to complete this topic RSV Immunizations Under 20 Months Aged Out No longer eligible based on patient's age to complete this topic Goals Goal Patient Goal Type Associated Problems Recent Progress Patient-Stated? Author Family - family caregiver with be involved in care transitions and discharge planning Lifestyle No Angela Dawkins, FILM SOUND ENGINEERexperimental physicist [employer] Advance Directives * Full Code (Latest Code Status on File) Date Activated Date Inactivated Comments 08/09/2022 8:44 PM * Full Code Date Activated Date Inactivated Comments 07/25/2022 1:55 PM 08/08/2022 1:57 PM Care Teams Motors And Generators Inspector Relationship Specialty Start Date End Date Mark Carmichael DO [address] [place] [address] PCP - General FAMILY PRACTICE 07/22/22
--- OUTSIDE RECORDS SUMMARY | 2024-08-20 13:48 | XMS_ITS | Encounter Summary ---
Author Organization [facility] Address [address] [place] [address]. [place] [address] [place] [address] Care Team Providers Care Metallurgical Lab Technician Name Role Phone Mark Carmichael DO Primary Care Provider Encounter Details Date Type Department Care Team (Latest Contact Info) Description 10/03/2022 3:06 PM HOSE STRIPPER - 10/03/2022 11:59 PM HOSE STRIPPER Hospital Encounter [facility] [address] [facility] [place] [address] Patti Pineda MD [address] [place] [address] Discharge Disposition: Home or Self Care (Routine Discharge) Social History Tobacco Use Types Packs/Day Years Used Date Smoking Tobacco: Former Cigarettes 0.5 50 Smokeless Tobacco: Never Alcohol Use Standard Drinks/Week Comments Not Currently 0 (1 standard drink = 0.6 oz pur e alcohol) Sex and Gender Information Value Date Recorded Sex Assigned at Not on file Legal Sex Male 8:52 PM CDT Gender Identity Not on file Sexual Orientation Not on file COVID-19 Exposure Response Date Recorded In the last 10 days, have yo u been in contact with someone who was confirmed or suspected to have Coronavirus/COVID-19? No / Unsure 10/03/2022 3:02 PM HOSE STRIPPER documented as of this encounter Functional Status * RETIRED Are you deaf or do you have serious difficulty hearing Answer Date of Assessment Author Status No 07/25/2022 11:00 PM HOSE STRIPPER Acti ve * RETIRED Are you blind or do you have serious difficulty seeing, even when wearing glasses? Answer Date of Assessment Author Status No 07/25/2022 11:00 PM HOSE STRIPPER Acti ve * Do you have serious difficulty walking or climbing stairs? Answer Date of Assessment Author Status No 07/25/2022 11:00 PM Katie Beuno ma, RN Active * Do you have difficulty dressing or bathing? Answer Date of Assessment Author Status No 07/25/2022 11:00 PM Katie Bueno ma, RN Active * Because of a physical, mental, or emotional condition, do you have difficulty doing errands alone such as visiting a doctor's office or shopping? Answer Date of Assessment Author Status No 07/25/2022 11:00 PM Katie Bueno ma, RN Active documented as of this encounter Mental Status * Because of a physical, mental, or emotional condition, do you have serious difficulty concentrating, remembering, or making decisions? Answer Entry Date Author Status No 07/25/2022 11:00 PM Katie Bueno ma, RN Active documented in this encounter Medications at Time of Discharge cyclobenzaprine (FLEXERIL) 10 MG tabletIndications :Muscle Spasm Take 10 mg by mouth 3 (three) times daily as needed for Muscle Spasms. Indications: Muscle Spasm ferrous sulfate, 65 mg elemental, 325 (65 FE) MG tabletIndications :Anemia Take 1 tablet (325 mg total) by mouth daily with breakfast. 30 tablet 1 08/08/2022 FLUoxetine (PROZAC) 10 MG tabletIndications :Depression Take 20 mg by mouth daily. Indications: Depression folic acid (FOLVITE) 1 MG tabletIndications :Anemia Take 1 tablet (1 mg total) by mouth daily. 30 tablet 1 08/08/2022 gabapentin (NEURONTIN) 300 MG capsuleIndication s:Neuropathy Take 300 mg by mouth 2 (two) times daily. Indications: Nerve Disease HYDROcodone-aceta minophen (NORCO) 10-325 MG tablet Take 1 tablet by mouth every 6 (six) hours as needed for Pain. ipratropium-albut isabelle (COMBIVENT RESPIMAT) 20-100 MCG/ACT inhalerIndication s:COPD, exacerbation Inhale 1 puff into the lungs every 6 (six) hours as needed for Wheezing. Please provide assembled. 4 g 1 08/07/2022 LORazepam (ATIVAN) 1 MG tabletIndications :Anxiety Take 1 mg by mouth 2 (two) times daily as needed for Anxiety. Indications: Feeling Anxious morphine (MSIR) 15 MG tabletIndications :Chronic Pain Take 30 mg by mouth every 8 (eight) hours as needed. Indications: Chronic Pain traZODone (DESYREL) 100 MG tabletIndications :Sleep disorders Take 100 mg by mouth nightly at bedtime. Indications: Sleep disorders acetaminophen (TYLENOL) 500 MG tabletIndications :Chronic Pain Take 500 mg by mouth every 6 (six) hours as needed. Indications: Chronic Pain 08/09/2022 acetaminophen-cod eine (TYLENOL #4) 300-60 MG tabletIndications :Chronic Pain Take 1 tablet by mouth every 6 (six) hours as needed for Pain. Indications: Chronic Pain 08/27/2022 albuterol sulfate HFA 108 (90 Base) MCG/ACT inhalerIndication s:Wheezing 07/11/2022 Aspirin-Acetamino phen-Caffeine (EXCEDRIN EXTRA STRENGTH OR)Indications:He adache Take 1 tablet by mouth as needed. Indications: Headache 08/09/2022 benzonatate (TESSALON) 200 MG capsule TAKE 1 CAPSULE BY MOUTH TWICE A DAY NEEDED FOR COUGH 07/11/2022 fluticasone propionate (FLONASE) 50 MCG/ACT nasal sprayIndications: Rhinitis 07/11/2022 HEPARIN & NACL LOCK FLUSH IVIndications:Ant ibiotic Therapy Inject 5 mLs into the vein daily. Indications: Treatment with Antibiotics 08/09/2022 senna-docusate 8.6-50 MG CapIndications:Co nstipation Take 1 capsule by mouth as needed. Indications: Constipation 08/09/2022 sodium chloride 0.9 % solutionIndicatio ns:Antibiotic Therapy Inject 10 mLs into the vein 2 (two) times daily. Indications: Treatment with Antibiotics 08/09/2022 sodium chloride 0.9 % solutionIndicatio ns:Antibiotic Therapy Inject 10 mLs into the vein as needed. Indications: Treatment with Antibiotics 08/09/2022 VASCEPA 1 g capsule Take 2 g by mouth 2 (two) times daily. 08/11/2021 documented as of this encounter Plan of Treatment Not on file documented as of this encounter Goals Goal Patient Goal Type Associated Problems Recent Progress Patient-Stated? Author Family - family caregiver with be involved in care transitions and discharge planning Lifestyle Angela Pena, DYE TUB TENDER documented as of this encounter Procedures Procedure Name Priority Date/Time Associated Diagnosis Comments CBC W/DIFF AUTOMATED Routine 10/03/2022 3:30 PM HOSE STRIPPER Diarrhea Pneumonia documented in this encounter Results * (ABNORMAL) CBC W/DIFF AUTOMATED (10/03/2022 3:30 PM HOSE STRIPPER) WBC 5.87 4.00 - 10.80 x10'3/uL 10/03/2022 3:[address] [facility] RBC 4.36(L) 4.50 - 6.10 x10'6/uL 10/03/2022 3:44 PM [facility] HGB 13.3 13.0 - 18.0 G/DL 10/03/2022 3:44 PM [facility] HCT 41.2 37.0 - 52.0 % 10/03/2022 3:44 PM [facility] MCV 94.5 78.0 - 100.0 FL 10/03/2022 3:44 PM [facility] MCH 30.5 27.0 - 31.0 PG 10/03/2022 3:44 PM [facility] MCHC 32.3(L) 33.0 - 36.0 G/DL 10/03/2022 3:44 PM [facility] RDW 12.6 11.5 - 14.5 % 10/03/2022 3:44 PM [facility] PLT 172 150 - 350 x10'3/uL 10/03/2022 3:44 PM [facility] MPV 10.6(H) 7.4 - 10.4 FL 10/03/2022 3:44 PM [facility] CBC COMMENT NORMAL REFERENCE RANGE NOT ESTABLISHED FOR THE PROPORTIONAL LEUKOCYTE DIFFERENTIAL. 10/03/2022 3:[address] [facility] NEUTROPHILS % 63.6 % 10/03/2022 3:[address] [facility] LYMPHOCYTES % 23.9 % 10/03/2022 3:[address] [facility] MONOCYTES % 11.1 % 10/03/2022 3:[address] [facility] EOSINOPHILS % 0.9 % 10/03/2022 3:[address] [facility] BASOPHILS % 0.3 % 10/03/2022 3:44 PM [address] [facility] IMMATURE GRANS % 0.2 % 10/03/19 3:[address] [facility] NRBC 0.0 % 10/03/2022 3:44 [address] STR[address] [facility] ABS. NEUTROPHILS 3.74 1.60 - 8.30 x10'3/uL 10/03/2022 3:44 [address] [facility] ABS. LYMPHOCYTES 1.40 0.80 - 4.70 x10'3/uL 10/03/2022 3:44 [address] [facility] ABS. MONOCYTES 0.65 0.00 - 1.50 x10'3/uL 10/03/2022 3:44 PM [address] STR[address] [facility] ABS. EOSINOPHILS 0.05 0.00 - 0.40 x10'3/uL 10/03/2022 3:44 PM [address] [facility] ABS. BASOPHILS 0.02 0.00 - 0.20 x10'3/uL 10/03/2022 3:44 [address] [facility] ABS. IMMATURE GRANULOCYTES 0.01 0.00 - 0.03 x10'3/uL 10/03/2022 3:44 [address] [facility] ABS. NUCLEATED RBC'S 0.00 0.00 x10'3/uL 10/03/2022 3:44 PM [address] [facility] 10/03/2022 3:30 PM HOSE STRIPPER Patti Pineda MD LABORATORY Final Result [facility] [address] [place] [id number] [phone] documented in this encounter Visit Diagnoses Diagnosis Diarrhea Pneumonia Pneumonia, organism unspecified documented in this encounter Care Teams Metallurgical Lab Technician Relationship Specialty Start Date End Date Mark Carmichael DO [address] [place] [address] PCP - General FAMILY PRACTICE 07/22/22 documented as of this encounter
--- OUTSIDE RECORDS SUMMARY | 2024-08-20 13:48 | XMS_ITS | Encounter Summary ---
Author Organization [facility] Address [facility] [place] [address] [place] [address] Care Team Providers Care Scientific Recruiter Name Role Phone Mark Carmichael DO Primary Care Provider [phone] Encounter Details Date Type Department Care Team (Late st Contact Info) Description 04/04/2023 Transcribe Orders [facility] Pre Access Team [address] [place] [address] Patti Pineda MD [address] [place] [address] Social History Tobacco Use Types Packs/Day Years [...] on file documented as of this encounter Functional Status * RETIRED Are you deaf or do you have serious difficulty hearing Answer Date of Assessment Author Status No 07/25/2022 11:00 PM PSYCHOLOGY TECH Acti ve * RETIRED Are you blind or do you have serious difficulty seeing, even when wearing glasses? Answer Date of Assessment Author Status No 07/25/2022 11:00 PM PSYCHOLOGY TECH Acti ve * Do you have serious difficulty walking or climbing stairs? Answer Date of Assessment Author Status No 07/25/2022 11:00 PM Katie Bueno ma, RN Active * Do you have [...] ma, RN Active documented in this encounter Plan of Treatment Not on file documented as of this encounter Goals Goal Patient Goal Type Associated Problems Recent Progress Patient-Stated? Author Family - family caregiver with be involved in care transitions and discharge planning Lifestyle No Angela Dawkins, REPORTING SPECIALIST documented as of this encounter Visit Diagnoses Diagnosis COPD (chronic obstructive pulmonary disease) (CMS/HCC [facility])- Primary Chronic airway obstruction, not elsewhere classified documented in this encounter Care Teams Scientific Recruiter Relationship Specialty Start Date End Date Mark Carmichael DO [address] [place] [address] PCP - General FAMILY PRACTICE 07/22/22 documented as of this encounter
--- OUTSIDE RECORDS SUMMARY | 2024-08-20 13:48 | XMS_ITS | Encounter Summary ---
Author Organization [facility] Address [address] [place] [address]. [place] [address] [place] [address] Care Team Providers Care Hand Meat Salter Name Role Phone Mark Carmichael DO Primary Care Provider [phone] Encounter Details Date Type Department Care Team (Late st Contact Info) Description 10/03/2022 Orders Only [facility] [address] [facility] [place] [address] Patti Pineda MD [address] [place] [address] Social History Tobacco Use Types [...] Coronavirus/COVID-19? No / Unsure 10/03/2022 3:02 PM ANODE MACHINE OPERATOR documented as of this encounter Functional Status * RETIRED Are you deaf or do you have serious difficulty hearing Answer Date of Assessment Author Status No 07/25/2022 11:00 PM ANODE MACHINE OPERATOR Acti ve * RETIRED Are you blind or do you have serious difficulty seeing, even when wearing glasses? Answer Date of Assessment Author Status No 07/25/2022 11:00 PM ANODE MACHINE OPERATOR Acti ve * Do you have serious difficulty walking or climbing stairs? Answer Date of Assessment Author Status No 07/25/2022 11:00 PM ANODE MACHINE OPERATOR Katie Vega ma, RN Active * Do you have difficulty dressing or bathing? Answer Date of Assessment Author Status No 07/25/2022 11:00 PM ANODE MACHINE OPERATOR Katie Vega ma, RN Active * Because of a [...] and discharge planning Lifestyle No Angela Dawkins, OUTSIDE CONTRACTOR SALES documented as of this encounter Results * (ABNORMAL) CBC W/DIFF AUTOMATED (10/03/2022 3:30 PM ANODE MACHINE OPERATOR) WBC 5.87 4.00 - 10.80 x10'3/uL 10/03/2022 3:44 PM [facility] RBC 4.36(L) 4.50 - 6.10 x10'6/uL 10/03/2022 3:44 PM [facility] HGB 13.3 13.0 - 18.0 G/DL 10/03/2022 3:44 PM [facility] HCT 41.2 37.0 - 52.0 % 10/03/2022 3:44 PM [facility] MCV 94.5 78.0 - 100.0 FL 10/03/2022 3:44 PM [facility] MCH 30.5 27.0 - 31.0 PG 10/03/2022 3:44 PM [facility] MCHC 32.3(L) 33.0 - 36.0 G/DL 10/03/2022 3:44 PM [facility] RDW 12.6 11.5 - 14.5 % 10/03/2022 3:44 PM [facility] PLT 172 150 - 350 x10'3/uL 10/03/2022 3:44 PM [facility] MPV 10.6(H) 7.4 - 10.4 FL 10/03/2022 3:44 PM [facility] CBC COMMENT NORMAL REFERENCE RANGE NOT ESTABLISHED FOR THE PROPORTIONAL LEUKOCYTE DIFFERENTIAL. 10/03/2022 3:44 PM [facility] NEUTROPHILS % 63.6 % 10/03/2022 3:44 PM [facility] LYMPHOCYTES % 23.9 % 10/03/2022 3:44 PM [facility] MONOCYTES % 11.1 % 10/03/2022 3:44 PM [facility] EOSINOPHILS % 0.9 % 10/03/2022 3:44 PM [facility] BASOPHILS % 0.3 % 10/03/2022 3:44 PM [facility] IMMATURE GRANS % 0.2 % 10/03/19 3:44 PM [facility] NRBC 0.0 % 10/03/2022 3:44 PM [facility] ABS. NEUTROPHILS 3.74 1.60 - 8.30 x10'3/uL 10/03/2022 3:44 PM [facility] ABS. LYMPHOCYTES 1.40 0.80 - 4.70 x10'3/uL 10/03/2022 3:44 PM [facility] ABS. MONOCYTES 0.65 0.00 - 1.50 x10'3/uL 10/03/2022 3:44 PM [facility] ABS. EOSINOPHILS 0.05 0.00 - 0.40 x10'3/uL 10/03/2022 3:44 PM [facility] ABS. BASOPHILS 0.02 0.00 - 0.20 x10'3/uL 10/03/2022 3:44 PM ANODE MACHINE OPERATOR [facility] ABS. IMMATURE GRANULOCYTES 0.01 0.00 - 0.03 x10'3/uL 10/03/2022 3:44 PM ANODE MACHINE OPERATOR [facility] ABS. NUCLEATED RBC'S 0.00 0.00 x10'3/uL 10/03/2022 3:44 PM ANODE MACHINE OPERATOR [facility] 10/03/2022 3:30 PM ANODE MACHINE OPERATOR us Patti Pineda MD LABORATORY Final Result [facility] [address] [place] [address], documented in this encounter Visit Diagnoses Diagnosis Diarrhea- Primary Pneumonia Pneumonia, organism unspecified documented in this encounter Care Teams Hand Meat Salter Relationship Specialty Start Date End Date Mark Carmichael DO [address] [place] [address] PCP - General FAMILY PRACTICE 07/22/22 documented as of this encounter
--- OUTSIDE RECORDS SUMMARY | 2024-08-20 13:49 | XMS_ITS | Encounter Summary ---
Author Organization [facility] Address [address] [place] [address]. [place] [address] [place] [address] Care Team Providers Care Flatbed Truck Driver Name Role Phone Mark Carmichael DO Primary Care Provider [phone] Encounter Details Date Type Department Care Team (Late st Contact Info) Description 08/27/2022 Orders Only [facility] [address] [facility] [place] [address] Zoila Farias MD [address] [place] [address] Social History Tobacco Use Types Packs/Day Years [...] suspected to have Coronavirus/COVID-19? No / Unsure 08/03/2022 2:21 AM SALES UTILITY REPRESENTATIVE documented as of this encounter Functional Status * RETIRED Are you deaf or do you have serious difficulty hearing Answer Date of Assessment Author Status No 07/25/2022 11:00 PM SALES UTILITY REPRESENTATIVE Acti ve * RETIRED Are you blind or do you have serious difficulty seeing, even when wearing glasses? Answer Date of Assessment Author Status No 07/25/2022 11:00 PM SALES UTILITY REPRESENTATIVE Acti ve * Do you have serious [...] and discharge planning Lifestyle No Angela Dawkins, TURN MACHINE OPERATOR documented as of this encounter Results * (ABNORMAL) COMPREHENSIVE METABOLIC PANEL (08/27/2022 1:45 PM SALES UTILITY REPRESENTATIVE) [facility] SODIUM S/P/B 141 136 - 145 MMOL/L 08/27/2022 3:01 PM [facility] POTASSIUM S/P/B 3.1(L) 3.5 - 5.1 MMOL/L 08/27/2022 3:01 PM [facility] CHLORIDE S/P/B 104 98 - 107 MMOL/L 08/27/2022 3:01 PM [facility] CO2 32.8(H) 21.0 - 32.0 MMOL/L 08/27/2022 3:01 PM [facility] GLUCOSE 120(H) 70 - 99 MG/DL 08/27/2022 3:01 PM [facility] Comment: FASTING GLUCOSE 100 TO 125 MG/DL IS CONSISTENT WITH IMPAIRED FASTING GLUCOSE. FASTING GLUCOSE >125 MG/DL IS CONSISTENT WITH DIABETES. RANDOM GLUCOSE >200 MG/DL WITH HYPERGLYCEMIC SYMPTOMS IS CONSISTENT WITH DIABETES. PER ADA GUIDELINES BUN 5(L) 6 - 24 MG/DL 08/27/2022 3:01 PM [facility] CREATININE S/P/B 0.90 0.70 - 1.30 MG/DL 08/27/2022 3:01 PM [facility] CALCIUM S/P/B 8.8 8.4 - 10.5 MG/DL 08/27/2022 3:01 PM [facility] BILIRUBIN TOTAL S/P/B 0.3 0.2 - 1.0 MG/DL 08/27/2022 3:01 PM [facility] Comment: THIS ASSAY IS NOT RECOMMENDED FOR PATIENTS UNDERGOING TREATMENT WITH ELTROMBOPAG DUE TO THE POTENTIAL FOR FALSELY ELEVATED RESULTS. ALKALINE PHOSPHATASE S/P/B 63 45 - 115 U/L 08/27/2022 3:01 PM [facility] AST 22 15 - 37 U/L 08/27/2022 3:01 PM [facility] ALT 16 16 - 63 U/L 08/27/2022 3:01 PM [facility] TOTAL PROTEIN S/P/B 7.0 6.4 - 8.2 G/DL 08/27/2022 3:01 PM [facility] ALBUMIN S/P/B 2.9(L) 3.4 - 5.0 G/DL 08/27/2022 3:01 PM [facility] ANION GAP 4.2(L) 5.0 - 15.0 MMOL/L 08/27/2022 3:01 PM [facility] OSMOLALITY (CALC) 290 MOSM/KG 022 3:01 PM [facility] Comment:REFERENCE RANGE NOT ESTABLISHED GFR ESTIMATE >90 >89 ML/MIN/1. 73 M2 08/27/2022 3:01 PM [facility] GFR NOTES GFR REFERENCE S: 08/27/2022 3:01 PM [facility] Comment: THE ESTIMATED GFR IS CALCULATED USING THE 2020 CKD-EPI EQUATION. THE FOLLOWING CATEGORIES FOR GRADING RENAL FUNCTION ARE RECOMMENDED BY THE INTERNATIONAL SOCIETY OF NEPHROLOGY (KDIGO 2012 CLINICAL PRACTICE GUIDELINE). G1,NORMAL OR HIGH: >89 ml/min/1.73 m2 G2,MILDLY DECREASED: 60-89 ml/min/1.73 m2 G3A,MILDLY TO MODERATELY DECREASED: 45-59 ml/min/1.73 m2 G3B,MODERATELY TO SEVERELY DECREASED: 30-44 ml/min/1.73 m2 G4,SEVERELY DECREASED: 15-29 ml/min/1.73 m2 G5,KIDNEY FAILURE: <15 ml/min/1.73 m2 08/27/2022 1:45 PM SALES UTILITY REPRESENTATIVE us Zoila Farias MD LABORATORY Final Result [facility] [address] [place] [address], * (ABNORMAL) CBC W/DIFF AUTOMATED (08/27/2022 1:45 PM SALES UTILITY REPRESENTATIVE) WBC 3.92(L) 4.00 - 10.80 x10'3/uL 08/27/2022 2:39 PM SALES UTILITY REPRESENTATIVE [facility] RBC 3.96(L) 4.50 - 6.10 x10'6/uL 08/27/2022 2:39 PM SALES UTILITY REPRESENTATIVE [facility] HGB 12.1(L) 13.0 - 18.0 G/DL 08/27/2022 2:39 PM SALES UTILITY REPRESENTATIVE [facility] HCT 39.7 37.0 - 52.0 % 08/27/2022 2:39 PM SALES UTILITY REPRESENTATIVE [facility] MCV 100.3(H) 78.0 - 100.0 FL 08/27/2022 2:39 PM SALES UTILITY REPRESENTATIVE [facility] MCH 30.6 27.0 - 31.0 PG 08/27/2022 2:39 PM SALES UTILITY REPRESENTATIVE [facility] MCHC 30.5(L) 33.0 - 36.0 G/DL 08/27/2022 2:39 PM SALES UTILITY REPRESENTATIVE [facility] RDW 14.2 11.5 - 14.5 % 08/27/2022 2:39 PM [facility] PLT 206 150 - 350 x10'3/uL 08/27/2022 2:39 PM [facility] MPV 10.1 7.4 - 10.4 FL 08/27/2022 2:39 PM [facility] CBC COMMENT NORMAL REFERENCE RANGE NOT ESTABLISHED FOR THE PROPORTIONAL LEUKOCYTE DIFFERENTIAL. 08/27/2022 2:39 PM SALES UTILITY REPRESENTATIVE [facility] NEUTROPHILS % 52.6 % 08/27/2022 2:39 PM [facility] LYMPHOCYTES % 34.4 % 08/27/2022 2:39 PM [facility] MONOCYTES % 9.4 % 08/27/2022 2:39 PM [facility] EOSINOPHILS % 2.3 % 08/27/2022 2:39 PM [facility] BASOPHILS % 1.0 % 08/27/2022 2:39 PM [facility] IMMATURE GRANS % 0.3 % 08/27/20 2:39 PM [facility] NRBC 0.0 % 08/27/2022 2:39 PM [facility] ABS. NEUTROPHILS 2.06 1.60 - 8.30 x10'3/uL 08/27/2022 2:39 PM [facility] ABS. LYMPHOCYTES 1.35 0.80 - 4.70 x10'3/uL 08/27/2022 2:39 PM [facility] ABS. MONOCYTES 0.37 0.00 - 1.50 x10'3/uL 08/27/2022 2:39 PM [facility] ABS. EOSINOPHILS 0.09 0.00 - 0.40 x10'3/uL 08/27/2022 2:39 PM [facility] ABS. BASOPHILS 0.04 0.00 - 0.20 x10'3/uL 08/27/2022 2:39 PM [facility] ABS. IMMATURE GRANULOCYTES 0.01 0.00 - 0.03 x10'3/uL 08/27/2022 2:39 PM [facility] ABS. 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
--- OUTSIDE RECORDS SUMMARY | 2024-08-20 13:49 | XMS_ITS | Encounter Summary ---
Author Organization [facility] Address Replaced by [facility] [place] [address] [place] [address] Care Team Providers Care Management Lecturer Name Role Phone Mark Carmichael DO Primary Care Provider [phone] Reason for Visit * Auth/Cert (Routine) Specialty Diagnoses / Procedures Referred By Amanda espinoza Referred To Contact Home Health Services Referral ID Status Reason Start Date Expiration Date Visits Re quested Visits Authorized [id number] 1 1 Encounter Details Date Type Department Care Team (Late st Contact Info) Description 09/03/2022 9:00 AM GAS STATION SERVICE ATTENDANT Home Care Visit [facility] Home Care [facility] [address] [place] [address] Conchita Cazares, RN [address] [place] [address] SN OASIS DISCHARGE/ASSESSMENT Social History Tobacco Use Types Packs/Day Years [...] Assessment Author Status No 07/25/2022 11:00 PM GAS STATION SERVICE ATTENDANT Acti ve * RETIRED Are you blind or do you have serious difficulty seeing, even when wearing glasses? Answer Date of Assessment Author Status No 07/25/2022 11:00 PM GAS STATION SERVICE ATTENDANT Acti ve * Do you have serious [...] Status No 07/25/2022 11:00 PM Katie Bueno ma RN Active documented as of this encounter [...] and discharge planning Lifestyle No Angela Dawkins, RAIL SPECIALIST documented as of this encounter Visit Diagnoses Not on filedocumented in this encounter Home Health Visit - Care Plan Visit Details Visit Type -SN - OASIS Disch arge Discipline -Long-Term Problems Problem Description Start Date Status Goals Interve ntions Pain/Physica l Discomfort Disciplines: SN Patient is experiencing pain/physical discomfort. 08/09/2022 Resolved on 09/03/2022 1 goal linked to scheduled/document ed intervention 2 goal interventions scheduled/documen shaquille in this visit Collaboratio n of Care Disciplines: Collaboration for safe care. 08/09/2022 Resolved on 09/03/2022 5 goals linked to scheduled/document ed interventions 12 goal interventions scheduled/documen shaquille in this visit Fall Precautions Disciplines: SN Patient at risk for falls or has had recent fall occurrence(s). 08/09/2022 Resolved on 09/03/2022 1 goal linked to scheduled/document ed intervention 4 goal interventions scheduled/documen shaquille in this visit Learning/Tea daniel Needs - IV Therapy Disciplines: Teaching and learning needs for performing home IV therapy. 08/09/2022 Resolved on 09/03/2022 1 goal linked to scheduled/document ed intervention 1 problem intervention scheduled/documen shaquille in this visit 6 goal interventions scheduled/documen shaquille in this visit Pleural Effusion Disciplines: SN Care related to pleural effusion. 08/09/2022 Resolved on 09/03/2022 1 goal linked to scheduled/document ed intervention 6 goal interventions scheduled/documen shaquille in this visit Psychosocial Status Disciplines: SN Care related to depression and anxiety. 08/09/2022 Resolved on 09/03/2022 1 goal linked to scheduled/document ed intervention 1 goal intervention scheduled/documen shaquille in this visit Pneumonia Disciplines: SN Care related to pneumonia. 08/09/2022 Resolved on 09/03/2022 1 goal linked to scheduled/document ed intervention 2 goal interventions scheduled/documen shaquille in this visit Goals Goal Associated Problem Outcome Goal Met? Visit Notes Patient's pain/physical discomfort will be reduced to the level of patient's stated goal. Description: - Patient's pain/physical discomfort will be reduced to the level of patient's stated goal by 09/08/22. - Patient's desired pain goal is 4/10. - Patient will verbalize understanding of the pain management plan by 09/08/22. Pain/Physical Discomfort Adequate for Discharge Yes Hosptial Readmission Reduction Description: Hospital Readmission Reduction - Low Risk (0-6 risk factors). Patient's risk number is 6. Hospital Readmission will be avoided during the first 60-day episode of Homecare through frequency of assessment visits Collaboration of Care Adequate for Discharge Yes Patient safety met through collaboration for safe care. Description: Clinicians will communicate patient care and safety needs during episode of care through 09/08/22. Collaboration of Care Adequate for Discharge Yes Nutritional Status for Optimal Health Description: Patient will demonstrate adequate nutritional status as evidenced by stabilization of weight and intake of required nutrients for optimal health and functioning by 09/08/22. Collaboration of Care Adequate for Discharge Yes Patient verbalizes understanding of medication regimen Description: Patient will verbalize understanding of medication regimen by 09/08/22. Collaboration of Care Adequate for Discharge Yes Patient meets homebound requirements. Description: Patient meets requirements of homebound status as evidenced by infusion therapy, weakness Other homebound reasons: fall risk, gait limited to household distances, limited endurance . Collaboration of Care Adequate for Discharge Yes Patient/caregiver maintains a safe environment. Description: Patient/caregiver will demonstrate ability to maintain a safe environment without injuries/falls by 09/08/22. Fall Precautions Adequate for Discharge Yes Patient/caregiver demonstrates ability to safely perform and/or administer IV flush Description: - Patient will demonstrate ability to safely perform administration of IV medications by 09/08/22. - Patient will demonstrate ability to correctly perform flushing technique by 09/08/22. Learning/Teaching Needs - IV Therapy Adequate for Discharge Yes Patient's pulmonary care needs met without signs/symptoms of complications. Description: - Patient verbalizes comfort by 09/08/22. - Patient demonstrates a return to baseline pulmonary function by 09/08/22 - Patient remains infection and complication free through 09/08/22 Pleural Effusion Adequate for Discharge Yes Patient will understand psychosocial needs Description: Patient will verbalize understanding of depression and anxiety management by 08/18/22 Psychosocial Status Adequate for Discharge Yes Patient's pulmonary care needs met without signs/symptoms of complications. Description: Patient will demonstrate a return to baseline pulmonary function with resolution of infection by 09/08/22. Pneumonia Adequate for Discharge Yes Interventions Intervention Associated Problem/Goal Status Variance Visit Notes Instruct on Management of Pain Description: - Teach principles of pain management and involve Patient in developing pain control regimen. - Instructed on non-pharmacological pain reduction techniques. - Instruct Patient on the cause(s) of pain. - Instruct Patient to call Home Health for unsatisfactory pain relief. - Offer written material related to pain medication to Patient . - Instruct Patient on administration and safe keeping of pain medications and the need to keep accurate records of dosages and times. - Provide Patient with a recording tool to enter pain level, situation, medication dosage, and effect of administered medications. Problem:Pain/Physica l Discomfort Goal:Patient's pain/physical discomfort will be reduced to the level of patient's stated goal. Completed Assess Pain Description: -Perform comprehensive pain assessment of patient's level of pain using Numeric pain scale and assess effectiveness of current pain regimen. -Current medical management for pain is morphine and flexeril. If no changes or concerns check complete (see Pain Assessment). Problem:Pain/Physica l Discomfort Goal:Patient's pain/physical discomfort will be reduced to the level of patient's stated goal. Completed Hospitalization Risk Description: Instruct Patient in minimizing hospitalization risk related to COPD, Discharged from Hospital or SNF, Home Safety Risks, More than 2 Secondary Diagnoses, ADL Assistance Needed and Depression. Problem:Collaboratio n of Care Goal:Hosptial Readmission Reduction Completed Assess Vital Signs Description: Obtain and record vital signs. Report to MD . No BP in left arm-midline. BP:??systolic blood pressure <90 or >160; diastolic blood pressure <60 or >90.?? Temperature:?? >100.5 F.?? Pulse: <60 or >100 bpm.?? Respiratory Rate:?? <12 or >28 /min.?? SPO2: <90%. May check SPO2 as needed for initial assessment or dyspnea. ?? Problem:Collaboratio n of Care Goal:Patient safety met through collaboration for safe care. Completed Instruct Home Safety Description: Instruct patient on strategies/modification s to home environment. Patient up as tolerated with walker or lesser device or no device as directed. no lifting more than 10lbs for three weeks then gradually increase. Problem:Collaboratio n of Care Goal:Patient safety met through collaboration for safe care. Completed Insurance Verification Description: Verify with patient/caregiver current insurance coverage. Problem:Collaboratio n of Care Goal:Patient safety met through collaboration for safe care. Completed Patient's coverage status: No change in coverage Plan Towards Discharge Description: Document Patient progress towards discharge. Problem:Collaboratio n of Care Goal:Patient safety met through collaboration for safe care. Completed Care Coordination Description: Clinician to review plan of care with patient/caregivers(s). Patient/Caregiver(s) agree(s) to plan of care and agrees to participate in care.??Disciplines RN Problem:Collaboratio n of Care Goal:Patient safety met through collaboration for safe care. Completed Plan for Next Visit Description: Next visit plan summation Problem:Collaboratio n of Care Goal:Patient safety met through collaboration for safe care. Completed discharged today Instruct Disaster/Evacuation Plan Description: Instruct in planning and execution of disaster/evacuation plan. Assist Patient in development or revision of plan as indicated. Problem:Collaboratio n of Care Goal:Patient safety met through collaboration for safe care. Completed Skilled Assessment Risk for Injury Description: Evaluate patient's home environment for potential safety risks, and educate Patient on identified safety risks. Problem:Collaboratio n of Care Goal:Patient safety met through collaboration for safe care. Completed Instruct diet Description: Instruct on As Tolerated diet and any fluid restrictions/requiremen ts. Problem:Collaboratio n of Care Goal:Nutritional Status for Optimal Health Completed Medication Reconciliation Description: - Review and identify unnecessary therapeutic duplication. Each clinician to perform bottle check weekly on their first visit of the week. - Patient to take medications from pill bottles set up by Patient Problem:Collaboratio n of Care Goal:Patient verbalizes understanding of medication regimen Completed Medication reconciliation performed with weekly bottle check. Medication Management Description: - Assess Patient ability to manage medications. Provide detailed instruction on proper administration and medication management. - Instruct Patient in medication administration, purpose, dosages, preparation, scheduling, side effects, food/drug & drug/drug interactions, storage, and potential complications. Problem:Collaboratio n of Care Goal:Patient verbalizes understanding of medication regimen Completed Home medication management instructed with patient. Instruct on fall prevention Description: Educate Patient about fall prevention. Problem:Fall Precautions Goal:Patient/caregiv er maintains a safe environment. Completed Report falls to Provider within 24 hours Description: Report witnessed or reported falls to provider within 24 hours . Problem:Fall Precautions Goal:Patient/caregiv er maintains a safe environment. Completed Assess appropriateness for homecare Description: Assess Patient ability to remain safe in current environment. Problem:Fall Precautions Goal:Patient/caregiv er maintains a safe environment. Completed Teach safe use of assistive devices Description: Assess DME needs and appropriateness of current DME used cane. Problem:Fall Precautions Goal:Patient/caregiv er maintains a safe environment. Completed Lab Collection Description: Lab draw via venipuncture for CBC and CMP weekly on Mondays starting 08/13/22 for diagnosis of J85.0, necrotizing pneumonia.?? Results to [facility] Dr. Zoila Farias [phone] and [facility]: . Problem:Learning/Tea daniel Needs - IV Therapy Goal:Patient/caregiv er demonstrates ability to safely perform and/or administer IV flush Completed IV Administration Description: Skilled nurse, Patient and Caregiver to gather supplies and administer IV medication as ordered including saline and heparin flushes as ordered or per protocol. Problem:Learning/Tea daniel Needs - IV Therapy Goal:Patient/caregiv er demonstrates ability to safely perform and/or administer IV flush Completed Instruct IV Supplies Description: Instruct Patient in how to gather supplies, prepare supplies, administer IV medication, and disconnect IV medication. Problem:Learning/Tea daniel Needs - IV Therapy Goal:Patient/caregiv er demonstrates ability to safely perform and/or administer IV flush Completed Instruct IV Flush Description: - Instruct Patient in how to perform flushing of IV line according to MD orders or protocol. - Flush IV catheter with 5mL of Heparin every 24 hours . Problem:Learning/Tea daniel Needs - IV Therapy Goal:Patient/caregiv er demonstrates ability to safely perform and/or administer IV flush Completed Infection Prevention Description: - Instruct Patient in strategies to prevent infection: frequent/proper hand-washing techniques, Standard precautions, avoid crowds and persons with known infections, staying current with immunizations, s/s of infection, use of incentive spirometer, use of antibiotics and encourage adequate diet and fluid intake. - Instruct Patient in how to recognize signs and symptoms of infection and when to notify home care agency and/or physician. Problem:Learning/Tea daniel Needs - IV Therapy Goal:Patient/caregiv er demonstrates ability to safely perform and/or administer IV flush Completed IV Dressing Change Description: - Skilled nurse to change IV site dressing per protocol. - Midline dressing to be changed 24 hours after insertion, then weekly and as needed for soiled/loosened dressing. Problem:Learning/Tea daniel Needs - IV Therapy Goal:Patient/caregiv er demonstrates ability to safely perform and/or administer IV flush Completed Lab draw Description: Lab draw via venipuncture for CBC for Dx:D64.9 Anemia on 08/13/22. results to Dr. Austen Carmichael fax: [phone] Problem:Learning/Tea daniel Needs - IV Therapy Completed Assess Signs and Symptoms Description: - Assess respiratory rate and effort, lung sounds, changes in vital signs, pain, JVD. - Assess for inability to move secretions, air hunger, reduced tolerance for activity, confusion, anxiety, subcutaneous emphysema, tracheal deviation, crepitus. Problem:Pleural Effusion Goal:Patient's pulmonary care needs met without signs/symptoms of complications. Completed Anxiety Management Description: - Instruct patient on the proper administration and use of anti-anxiety medications and pharmacologic/ nonpharmacologic means to treat anxiety/agitation. - Instruct patient in methods to reduce anxiety including providing a calm environment with minimal disturbances, encouraging family members and friends to visit in small numbers to reduce stimulation, and routine schedule for ADLs. Problem:Pleural Effusion Goal:Patient's pulmonary care needs met without signs/symptoms of complications. Completed Infection Prevention Description: - Instruct Patient in strategies to prevent infection: frequent/proper hand-washing techniques, Standard precautions, avoid crowds and persons with known infections, staying current with immunizations, s/s of infection, use of incentive spirometer, use of antibiotics and encourage adequate diet and fluid intake. - Instruct Patient in how to recognize signs and symptoms of infection and when to notify home care agency and/or physician. - Encourage patient to obtain influenza vaccine and wear mask as needed. Problem:Pleural Effusion Goal:Patient's pulmonary care needs met without signs/symptoms of complications. Completed Disease Management Description: - Instruct Patient in deep-breathing and coughing exercises, pursed lip and abdominal breathing, and positioning for optimal breathing pattern. - Instruct Patient on energy conservation strategies and use of assistive devices to minimize energy expenditure. - Instruct Patient in methods designed to mobilize secretions including incentive spirometer, medications, and mucous membrane care. - Instruct Patient in maintaining dietary balance and eating frequent small meals. Problem:Pleural Effusion Goal:Patient's pulmonary care needs met without signs/symptoms of complications. Completed Instruct Energy Conservation Description: - Instruct Patient on energy conservation strategies and use of assistive devices to minimize energy expenditure. Problem:Pleural Effusion Goal:Patient's pulmonary care needs met without signs/symptoms of complications. Completed Instruct Disease Process Description: - Discuss signs/symptoms, complications, and actions to take with disease progression and if exacerbation occurs. - Instruct Patient about disease mechanisms and progression. Problem:Pleural Effusion Goal:Patient's pulmonary care needs met without signs/symptoms of complications. Completed Assess Psychosocial Status Description: - Assess for depression and anxiety. - Assess support systems and coping. - Refer to SURGICAL NURSE PRACTITIONER as needed. - Notify physician as needed. Problem:Psychosocial Status Goal:Patient will understand psychosocial needs Completed Assess Signs and Symptoms Description: - SN assess respiratory rate and effort, lung sounds, changes in vital signs, SpO2, pain, use of accessory muscles. - SN assess for inability to move secretions, air hunger, reduced tolerance for activity, confusion, anxiety. Problem:Pneumonia Goal:Patient's pulmonary care needs met without signs/symptoms of complications. Completed Instruct Disease Process Description: - Discuss signs/symptoms, complications, and actions to take with disease progression and if exacerbation occurs. - Instruct Patient about disease mechanisms and progression. Problem:Pneumonia Goal:Patient's pulmonary care needs met without signs/symptoms of complications. Completed documented in this encounter Care Teams Management Lecturer Relationship Specialty Start Date End Date Mark Carmichael DO [address] [place] [address] PCP - General FAMILY PRACTICE 07/22/22 documented as of this encounter
--- OUTSIDE RECORDS SUMMARY | 2024-08-20 13:49 | XMS_ITS | Encounter Summary ---
Author Organization [facility] Address [address] [place] [address]. [place] [address] [place] [address] Care Team Providers Care Business Attorney Name Role Phone Mark Carmichael DO Primary Care Provider Encounter Details Date Type Department Care Team (Latest Contact Info) Description 10/03/2022 Travel Social History Tobacco Use Types Packs/Day [...] Coronavirus/COVID-19? No / Unsure 10/03/2022 3:02 PM RESEARCHER documented as of this encounter Functional Status * RETIRED Are you deaf or do you have serious difficulty hearing Answer Date of Assessment Author Status No 07/25/2022 11:00 PM RESEARCHER Acti ve * RETIRED Are you blind or do you have serious difficulty seeing, even when wearing glasses? Answer Date of Assessment Author Status No 07/25/2022 11:00 PM RESEARCHER Acti ve * Do you have serious difficulty walking or climbing stairs? Answer Date of Assessment Author Status No 07/25/2022 11:00 PM RESEARCHER Katie Vega ma R, RN Active * Do you have difficulty dressing or bathing? Answer Date of Assessment Author Status No 07/25/2022 11:00 PM RESEARCHER Katie Vega ma, RN Active * Because of a physical, mental, or emotional condition, do you have difficulty doing errands alone such as visiting a doctor's office or shopping? Answer Date of Assessment Author Status No 07/25/2022 11:00 PM RESEARCHER Katie Vega ma, RN Active documented as of this encounter Mental Status * Because of a physical, mental, or emotional condition, do you have serious difficulty concentrating, remembering, or making decisions? Answer Entry Date Author Status No 07/25/2022 11:00 PM RESEARCHER Katie Vega ma, RN Active documented in this encounter Plan of Treatment Not on file documented as of this encounter Goals Goal Patient Goal Type Associated Problems Recent Progress Patient-Stated? Author Family - family caregiver with be involved in care transitions and discharge planning Lifestyle No Angela Dawkins, DRILL HAND documented as of this encounter Visit Diagnoses Not on filedocumented in this encounter Care Teams Business Attorney Relationship Specialty Start Date End Date Mark Carmichael DO [address] [place] [address] PCP - General FAMILY PRACTICE 07/22/22 documented as of this encounter
--- OUTSIDE RECORDS SUMMARY | 2024-08-20 13:49 | XMS_ITS | Encounter Summary ---
Author Organization [facility] Address [address] [place] [address]. [place] [address] [place] [address] Care Team Providers Care Machine Room Operator Name Role Phone Mark Carmichael DO Primary Care Provider Encounter Details Date Type Department Care Team (Latest Contact Info) Description 08/27/2022 2:30 PM SALES SUPPORT REPRESENTATIVE - 08/27/2022 11:59 PM SALES SUPPORT REPRESENTATIVE Hospital Encounter [place] [id number] [facility] [place] [address] Zoila Farias MD [address] [place] [address] Discharge Disposition: Home or Self Care (Routine [...] No / Unsure 08/03/2022 2:21 AM SALES SUPPORT REPRESENTATIVE documented as of this encounter Functional Status * RETIRED Are you deaf or do you have serious difficulty hearing Answer Date of Assessment Author Status No 07/25/2022 11:00 PM SALES SUPPORT REPRESENTATIVE Acti ve * RETIRED Are you blind or do you have serious difficulty seeing, even when wearing glasses? Answer Date of Assessment Author Status No 07/25/2022 11:00 PM SALES SUPPORT REPRESENTATIVE Acti ve * Do you have [...] by mouth 2 (two) times daily. 08/11/2021 cefTRIAXone 2 g in sodium chloride 0.9 % SOLN 50 mLIndications:Ant ibiotic Therapy Inject 2 g into the vein daily for 23 days. 23 each 08/07/2022 2 metroNIDAZOLE (FLAGYL) 500 MG tabletIndications :Antibiotic Therapy Take 1 tablet (500 mg total) by mouth every 8 (eight) hours for 23 days. 69 tablet 08/07/2022 2 documented as of this encounter Plan of Treatment Not on file documented as of this encounter Goals Goal Patient Goal Type Associated Problems Recent Progress Patient-Stated? 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0 PG 08/27/2022 2:39 PM SALES SUPPORT REPRESENTATIVE [facility] MCHC 30.5(L) 33.0 - 36.0 G/DL 08/27/2022 2:39 PM [facility] RDW 14.2 11.5 - 14.5 % 08/27/2022 2:39 PM SALES SUPPORT REPRESENTATIVE [facility] PLT 206 150 - 350 x10'3/uL 08/27/2022 2:39 PM [facility] MPV 10.1 7.4 - 10.4 FL 08/27/2022 2:39 PM SALES SUPPORT REPRESENTATIVE [facility] CBC COMMENT NORMAL REFERENCE RANGE NOT ESTABLISHED FOR THE PROPORTIONAL LEUKOCYTE DIFFERENTIAL. 08/27/2022 2:39 PM SALES SUPPORT REPRESENTATIVE [facility] NEUTROPHILS % 52.6 % 08/27/2022 2:39 PM [facility] LYMPHOCYTES % 34.4 % 08/27/2022 2:39 PM [facility] MONOCYTES % 9.4 % 08/27/2022 2:39 PM [facility] EOSINOPHILS % 2.3 % 08/27/2022 2:39 PM [facility] BASOPHILS % 1.0 % 08/27/2022 2:39 PM [facility] IMMATURE GRANS % 0.3 % 08/27/20 2:39 PM [facility] NRBC 0.0 % 08/27/2022 2:39 PM [facility] ABS. NEUTROPHILS 2.06 1.60 - 8.30 x10'3/uL 08/27/2022 2:39 PM [facility] ABS. LYMPHOCYTES 1.35 0.80 - 4.70 x10'3/uL 08/27/2022 2:39 PM [facility] ABS. MONOCYTES 0.37 0.00 - 1.50 x10'3/uL 08/27/2022 2:39 PM [facility] ABS. EOSINOPHILS 0.09 0.00 - 0.40 x10'3/uL 08/27/2022 2:39 PM [facility] ABS. BASOPHILS 0.04 0.00 - 0.20 x10'3/uL 08/27/2022 2:39 PM [facility] ABS. IMMATURE GRANULOCYTES 0.01 0.00 - 0.03 x10'3/uL 08/27/2022 2:39 PM SALES SUPPORT REPRESENTATIVE [facility] ABS. NUCLEATED RBC'S 0.00 0.00 x10'3/uL 08/27/2022 2:39 PM [facility] 08/27/2022 1:45 PM SALES SUPPORT REPRESENTATIVE Zoila Farias MD LABORATORY Final Result [facility] [address] [place] [address], * (ABNORMAL) COMPREHENSIVE METABOLIC PANEL (08/27/2022 1:45 PM SALES SUPPORT REPRESENTATIVE) SODIUM S/P/B 141 136 - 145 MMOL/L 08/27/2022 3:01 PM [facility] POTASSIUM S/P/B 3.1(L) 3.5 - 5.1 MMOL/L 08/27/2022 3:01 PM [facility] CHLORIDE S/P/B 104 98 - 107 MMOL/L 08/27/2022 3:01 PM [facility] CO2 32.8(H) 21.0 - 32.0 MMOL/L 08/27/2022 3:01 PM [facility] GLUCOSE 120(H) 70 - 99 MG/DL 08/27/2022 3:01 PM [facility] Comment: FASTING GLUCOSE 100 TO 125 MG/DL IS CONSISTENT WITH IMPAIRED FASTING GLUCOSE. FASTING GLUCOSE >125 MG/DL IS CONSISTENT WITH DIABETES. RANDOM GLUCOSE >200 MG/DL WITH HYPERGLYCEMIC SYMPTOMS IS CONSISTENT WITH DIABETES. PER ADA GUIDELINES BUN 5(L) 6 - 24 MG/DL 08/27/2022 3:01 PM [facility] CREATININE S/P/B 0.90 0.70 - 1.30 MG/DL 08/27/2022 3:01 PM [facility] CALCIUM S/P/B 8.8 8.4 - 10.5 MG/DL 08/27/2022 3:01 PM [facility] BILIRUBIN TOTAL S/P/B 0.3 0.2 - 1.0 MG/DL 08/27/2022 3:01 PM [facility] Comment: THIS ASSAY IS NOT RECOMMENDED FOR PATIENTS UNDERGOING TREATMENT WITH ELTROMBOPAG DUE TO THE POTENTIAL FOR FALSELY ELEVATED RESULTS. ALKALINE PHOSPHATASE S/P/B 63 45 - 115 U/L 08/27/2022 3:01 PM [facility] AST 22 15 - 37 U/L 08/27/2022 3:01 PM [facility] ALT 16 16 - 63 U/L 08/27/2022 3:01 PM [facility] TOTAL PROTEIN S/P/B 7.0 6.4 - 8.2 G/DL 08/27/2022 3:01 PM [facility] ALBUMIN S/P/B 2.9(L) 3.4 - 5.0 G/DL 08/27/2022 3:01 PM [facility] ANION GAP 4.2(L) 5.0 - 15.0 MMOL/L 08/27/2022 3:01 PM [facility] OSMOLALITY (CALC) 290 MOSM/KG 022 3:01 PM [facility] Comment:REFERENCE RANGE NOT ESTABLISHED GFR ESTIMATE >90 >89 ML/MIN/1. 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
--- OUTSIDE RECORDS SUMMARY | 2024-08-20 13:49 | XMS_ITS | Encounter Summary ---
Author Organization [facility] Address [address] [place] [address]. [place] [address] [place] [address] Care Team Providers Care Senior Analysis Specialist Name Role Phone Mark Carmichael DO Primary Care Provider [phone] Encounter Details Date Type Department Care Team (Late st Contact Info) Description 08/20/2022 Orders Only [facility] [address] [facility] [place] [address] Zoila Farias MD [address] [place] [address] Social History Tobacco Use Types Packs/Day Years [...] Coronavirus/COVID-19? No / Unsure 08/03/2022 2:21 AM ASL INTERPRETER documented as of this encounter Functional Status * RETIRED Are you deaf or do you have serious difficulty hearing Answer Date of Assessment Author Status No 07/25/2022 11:00 PM ASL INTERPRETER Acti ve * RETIRED Are you blind or do you have serious difficulty seeing, even when wearing glasses? Answer Date of Assessment Author Status No 07/25/2022 11:00 PM ASL INTERPRETER Acti ve * Do you have serious difficulty walking or climbing stairs? Answer Date of Assessment Author Status No 07/25/2022 11:00 PM Katie Bueno ma, RN Active * Do you have difficulty dressing or bathing? Answer Date of Assessment Author Status No 07/25/2022 11:00 PM ASL INTERPRETER Katie Vega ma, RN Active * Because [...] and discharge planning Lifestyle No Angela Dawkins, CORONER TRANSPORT TECHNICIAN documented as of this encounter Results * (ABNORMAL) COMPREHENSIVE METABOLIC PANEL (08/20/2022 11:10 AM [facility] SODIUM S/P/B 141 136 - 145 MMOL/L 08/20/2022 12:47 PM [facility] POTASSIUM S/P/B 4.0 3.5 - 5.1 MMOL/L 08/20/2022 12:47 PM [facility] CHLORIDE S/P/B 104 98 - 107 MMOL/L 08/20/2022 12:47 PM [facility] CO2 29.8 21.0 - 32.0 MMOL/L 08/20/2022 12:47 PM [facility] GLUCOSE 84 70 - 99 MG/DL 08/20/2022 12:47 PM [facility] Comment: FASTING GLUCOSE 100 TO 125 MG/DL IS CONSISTENT WITH IMPAIRED FASTING GLUCOSE. FASTING GLUCOSE >125 MG/DL IS CONSISTENT WITH DIABETES. RANDOM GLUCOSE >200 MG/DL WITH HYPERGLYCEMIC SYMPTOMS IS CONSISTENT WITH DIABETES. PER ADA GUIDELINES BUN 9 6 - 24 MG/DL 08/20/2022 12:47 PM [facility] CREATININE S/P/B 0.82 0.70 - 1.30 MG/DL 08/20/2022 12:47 PM [facility] CALCIUM S/P/B 8.5 8.4 - 10.5 MG/DL 08/20/2022 12:47 PM [facility] BILIRUBIN TOTAL S/P/B 0.1(L) 0.2 - 1.0 MG/DL 08/20/2022 12:47 PM [facility] Comment: THIS ASSAY IS NOT RECOMMENDED FOR PATIENTS UNDERGOING TREATMENT WITH ELTROMBOPAG DUE TO THE POTENTIAL FOR FALSELY ELEVATED RESULTS. ALKALINE PHOSPHATASE S/P/B 68 45 - 115 U/L 08/20/2022 12:47 PM [facility] AST 26 15 - 37 U/L 08/20/2022 12:47 PM [facility] ALT 19 16 - 63 U/L 08/20/2022 12:47 PM [facility] TOTAL PROTEIN S/P/B 6.5 6.4 - 8.2 G/DL 08/20/2022 12:47 PM [facility] ALBUMIN S/P/B 2.6(L) 3.4 - 5.0 G/DL 08/20/2022 12:47 PM [facility] ANION GAP 7.2 5.0 - 15.0 MMOL/L 08/20/2022 12:47 PM [facility] OSMOLALITY (CALC) 290 MOSM/KG 022 12:47 PM [facility] Comment:REFERENCE RANGE NOT ESTABLISHED GFR ESTIMATE >90 >89 ML/MIN/1. 73 M2 08/20/2022 12:47 PM [facility] GFR NOTES GFR REFERENCE S: 08/20/2022 12:47 PM [facility] Comment: THE ESTIMATED GFR IS [...] ml/min/1.73 m2 G5,KIDNEY FAILURE: <15 ml/min/1.73 m2 08/20/2022 11:1 0 AM ASL INTERPRETER us Zoila Farias MD LABORATORY Final Result [facility] [address] [place] [address], * (ABNORMAL) CBC W/DIFF AUTOMATED (08/20/2022 11:10 AM ASL INTERPRETER) WBC 4.8 4.0 - 10.8 x10'3/uL 08/20/2022 12:30 PM ASL INTERPRETER [facility] RBC 3.39(L) 4.50 - 6.10 x10'6/uL 08/20/2022 12:30 PM ASL INTERPRETER [facility] HGB 10.7(L) 13.0 - 18.0 G/DL 08/20/2022 12:30 PM ASL INTERPRETER [facility] HCT 35.1(L) 37.0 - 52.0 % 08/20/2022 12:30 PM ASL INTERPRETER [facility] MCV 103.5(H) 78.0 - 100.0 FL 08/20/2022 12:30 PM ASL INTERPRETER [facility] MCH 31.6(H) 27.0 - 31.0 PG 08/20/2022 12:30 PM ASL INTERPRETER [facility] MCHC 30.5(L) 33.0 - 36.0 G/DL 08/20/2022 12:30 PM ASL INTERPRETER [facility] RDW 14.9(H) 11.5 - 14.5 % 08/20/2022 12:30 PM ASL INTERPRETER [facility] PLT 324 150 - 350 x10'3/uL 08/20/2022 12:30 PM ASL INTERPRETER [facility] MPV 9.9 7.4 - 10.4 FL 08/20/2022 12:30 PM ASL INTERPRETER [facility] CBC COMMENT NORMAL REFERENCE RANGE NOT ESTABLISHED FOR THE PROPORTIONAL LEUKOCYTE DIFFERENTIAL. 08/20/2022 12:30 PM ASL INTERPRETER [facility] NEUTROPHILS % 56.0 % 08/20/2022 12:30 PM ASL INTERPRETER [facility] LYMPHOCYTES % 27.2 % 08/20/2022 12:30 PM ASL INTERPRETER [facility] MONOCYTES % 12.7 % 08/20/2022 12:30 PM ASL INTERPRETER [facility] EOSINOPHILS % 2.9 % 08/20/2022 12:30 PM ASL INTERPRETER [facility] BASOPHILS % 0.8 % 08/20/2022 12:30 PM ASL INTERPRETER [facility] IMMATURE GRANS % 0.4 % 08/20/20 12:30 PM ASL INTERPRETER [facility] NRBC 0.0 % 08/20/2022 12:30 PM ASL INTERPRETER [facility] ABS. NEUTROPHILS 2.69 1.60 - 8.30 x10'3/uL 08/20/2022 12:30 PM ASL INTERPRETER [facility] ABS. LYMPHOCYTES 1.31 0.80 - 4.70 x10'3/uL 08/20/2022 12:30 PM ASL INTERPRETER [facility] ABS. MONOCYTES 0.61 0.00 - 1.50 x10'3/uL 08/20/2022 12:30 PM ASL INTERPRETER [facility] ABS. EOSINOPHILS 0.14 0.00 - 0.40 x10'3/uL 08/20/2022 12:30 PM ASL INTERPRETER [facility] ABS. BASOPHILS 0.04 0.00 - 0.20 x10'3/uL 08/20/2022 12:30 PM ASL INTERPRETER [facility] ABS. IMMATURE GRANULOCYTES 0.02 0.00 - 0.03 x10'3/uL 08/20/2022 12:30 PM ASL INTERPRETER [facility] ABS. 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
--- OUTSIDE RECORDS SUMMARY | 2024-08-20 13:49 | XMS_ITS | Encounter Summary ---
Author Organization [facility] Address [address] [place] [address]. [place] [address] [place] [address] Care Team Providers Care Fusing Machine Tender Name Role Phone Mark Carmichael DO Primary Care Provider [phone] Encounter Details Date Type Department Care Team (Latest Contact Info) Description 10/03/2022 3:05 PM APARTMENT GROUNDSKEEPER Hospital Encounter [facility] [address] [place] [address] Yazan West MD [address] [place] [address] Discharge Disposition: Home or Self [...] Coronavirus/COVID-19? No / Unsure 10/03/2022 3:02 PM APARTMENT GROUNDSKEEPER documented as of this encounter Functional Status * RETIRED Are you deaf or do you have serious difficulty hearing Answer Date of Assessment Author Status No 07/25/2022 11:00 PM APARTMENT GROUNDSKEEPER Acti ve * RETIRED Are you blind or do you have serious difficulty seeing, even when wearing glasses? Answer Date of Assessment Author Status No 07/25/2022 11:00 PM APARTMENT GROUNDSKEEPER Acti ve * Do you have serious [...] and discharge planning Lifestyle No Angela Dawkins, FORMULA WEIGHER documented as of this encounter Procedures Procedure Name Priority Date/Time Associated Diagnosis Comments XR CHEST PA+LAT Routine 10/03/2022 3:27 PM APARTMENT GROUNDSKEEPER Diarrhea Pneumonia documented in this encounter Results * XR CHEST PA+LAT (10/03/2022 3:27 PM APARTMENT GROUNDSKEEPER) Anatomical Region Laterality Modality Chest Radiographic Jasmina ging 10/03/2022 4:49 PM APARTMENT GROUNDSKEEPER Impressions 10/03/2022 4:52 PM APARTMENT GROUNDSKEEPER IMPRESSION: 1. ??Mild perihilar bronchial wall thickening, which may represent reactive airway disease or small airway infection/inflammation. 2. ??Interval resolution of the previously identified right pleural effusion. 3. ??No focal consolidation or pneumothorax. Ordered By: YAZAN WEST Interpreted By: Reji Cantrell MD, 10/03/2022 4:49 PM Narrative 10/03/2022 4:52 PM APARTMENT GROUNDSKEEPER PROCEDURE: ??XR CHEST PA+LAT. ??10/03/2022 3:27 PM. TECHNIQUE: ??2 views (PA and Lateral) of the chest were performed. HISTORY: ??Pneumonia. COMPARISON: ??CT chest without contrast, 08/04/2022. AP chest radiograph, 02/06/2022. FINDINGS: ?? Support Devices: ??None. Cardiac Silhouette/Mediastinum/Ness: ??The cardiac, mediastinal, and hilar contours are within normal limits for age. Lungs/Pleural Spaces: ??Mild perihilar bronchial wall thickening. The previously identified small right pleural effusion effusion is no longer seen. The pleural spaces are clear. Chest Wall/Diaphragm/Upper Abdomen: ??The thoracic musculoskeletal structures and the upper abdomen are unchanged in appearance. Procedure Note Reji Cantrell MD - 10/03/2022 PROCEDURE: XR CHEST PA+LAT. 10/03/2022 3:27 PM. TECHNIQUE: 2 views (PA and Lateral) of the chest were performed. HISTORY: Pneumonia. COMPARISON: CT chest without contrast, 08/04/2022. AP chest radiograph, . FINDINGS: Support Devices: None. Cardiac Silhouette/Mediastinum/Ness: The cardiac, mediastinal, and hilarcontours are within normal limits for age. Lungs/Pleural Spaces: Mild perihilar bronchial wall thickening. Thepreviously identified small right pleural effusion effusion is no longerseen. The pleural spaces are clear. Chest Wall/Diaphragm/Upper Abdomen: The thoracic musculoskeletalstructures and the upper abdomen are unchanged in appearance. IMPRESSION: 1. Mild perihilar bronchial wall thickening, which may represent reactiveairway disease or small airway infection/inflammation. 2. Interval resolution of the previously identified right pleuraleffusion. 3. No focal consolidation or pneumothorax. Ordered By: YAZAN WEST Interpreted By: Reji Cantrell MD, 10/03/2022 4:49 PM us Yazan West MD GENERAL IMAGING Final Result documented in this encounter Visit Diagnoses Diagnosis Diarrhea Pneumonia Pneumonia, organism unspecified documented in this encounter Care Teams Fusing Machine Tender Relationship Specialty Start Date End Date Mark Carmichael DO [address] [place] [address] PCP - General FAMILY PRACTICE 07/22/22 documented as of this encounter
--- OUTSIDE RECORDS SUMMARY | 2024-08-20 13:49 | XMS_ITS | Encounter Summary ---
Author Organization [facility] Address [address] [place] [address]. [place] [address] [place] [address] Care Team Providers Care Clinic Office Assistant Name Role Phone Mark Carmichael DO Primary Care Provider [phone] Reason for Visit * Auth/Cert (Routine) Specialty Diagnoses / Procedures Referred By Amanda espinoza Referred To Contact Home Health Services Referral ID Status Reason Start Date Expiration Date Visits Re quested Visits Authorized [id number] 1 1 Encounter Details Date Type Department Care Team ([facility] st Contact Info) Description 08/14/2022 Home Care Visit [facility] Home Care [facility] [address] [place] [address] Elvi Benitez, RN CASE COMMUNICATION Social History Tobacco Use Types Packs/Day Years [...] Coronavirus/COVID-19? No / Unsure 08/03/2022 2:21 AM FINANCIAL OPERATIONS ANALYST documented as of this encounter Functional Status * RETIRED Are you deaf or do you have serious difficulty hearing Answer Date of Assessment Author Status No 07/25/2022 11:00 PM FINANCIAL OPERATIONS ANALYST Acti ve * RETIRED Are you blind or do you have serious difficulty seeing, even when wearing glasses? Answer Date of Assessment Author Status No 07/25/2022 11:00 PM FINANCIAL OPERATIONS ANALYST Acti ve * Do you have serious difficulty walking or climbing stairs? Answer Date of Assessment Author Status No 07/25/2022 11:00 PM FINANCIAL OPERATIONS ANALYST Katie Vega ma, RN Active * Do you have difficulty dressing or bathing? Answer Date of Assessment Author Status No 07/25/2022 11:00 PM FINANCIAL OPERATIONS ANALYST Katie Vega ma, RN Active * Because of a physical, mental, or emotional condition, do you have difficulty doing errands alone such as visiting a doctor's office or shopping? Answer Date of Assessment Author Status No 07/25/2022 11:00 PM FINANCIAL OPERATIONS ANALYST Katie Vega ma, RN Active documented as [...] and discharge planning Lifestyle No Angela Dawkins, WATCH AND CLOCK MAKER AND REPAIRER documented as of this encounter Visit Diagnoses Not on filedocumented in this encounter Care Teams Clinic Office Assistant Relationship Specialty Start Date End Date Mark Carmichael DO [address] [place] [address] PCP - General FAMILY PRACTICE 07/22/22 documented as of this encounter
--- OUTSIDE RECORDS SUMMARY | 2024-08-20 13:49 | XMS_ITS | Encounter Summary ---
Author Organization [facility] Address [address] [place] [address]. [place] [address] [place] [address] Care Team Providers Care Pressing Department Supervisor Name Role Phone Mark Carmichael DO Primary Care Provider Encounter Details Date Type Department Care Team (Latest Contact Info) Description 08/20/2022 12:20 PM INTERFACE CONTROL OFFICER - 08/20/2022 11:59 PM INTERFACE CONTROL OFFICER Hospital Encounter [facility] [place] [address] Zoila Fairas MD [address] [place] [address] Discharge Disposition: Home or Self Care (Routine [...] Coronavirus/COVID-19? No / Unsure 08/03/2022 2:21 AM INTERFACE CONTROL OFFICER documented as of this encounter Functional Status * RETIRED Are you deaf or do you have serious difficulty hearing Answer Date of Assessment Author Status No 07/25/2022 11:00 PM INTERFACE CONTROL OFFICER Acti ve * RETIRED Are you blind or do you have serious difficulty seeing, even when wearing glasses? Answer Date of Assessment Author Status No 07/25/2022 11:00 PM INTERFACE CONTROL OFFICER Acti ve * Do you have serious [...] hours as needed. Indications: Chronic Pain 08/09/2022 albuterol sulfate HFA 108 (90 Base) MCG/ACT [...] daily for 23 days. 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) CBC W/DIFF AUTOMATED Routine 08/20/2022 11:10 AM INTERFACE CONTROL OFFICER Gangrene and necrosis of lung ([facility]/HCC HHS/HCC) documented in this encounter Results * (ABNORMAL) CBC W/DIFF AUTOMATED (08/20/2022 11:10 AM INTERFACE CONTROL OFFICER) WBC 4.8 4.0 - 10.8 x10'3/uL 08/20/2022 12:30 PM INTERFACE CONTROL OFFICER [facility] RBC 3.39(L) 4.50 - 6.10 x10'6/uL 08/20/2022 12:30 PM INTERFACE CONTROL OFFICER [facility] HGB 10.7(L) 13.0 - 18.0 G/DL 08/20/2022 12:30 PM INTERFACE CONTROL OFFICER [facility] HCT 35.1(L) 37.0 - 52.0 % 08/20/2022 12:30 PM INTERFACE CONTROL OFFICER [facility] MCV 103.5(H) 78.0 - 100.0 FL 08/20/2022 12:30 PM INTERFACE CONTROL OFFICER [facility] MCH 31.6(H) 27.0 - 31.0 PG 08/20/2022 12:30 PM INTERFACE CONTROL OFFICER [facility] MCHC 30.5(L) 33.0 - 36.0 G/DL 08/20/2022 12:30 PM INTERFACE CONTROL OFFICER [facility] RDW 14.9(H) 11.5 - 14.5 % 08/20/2022 12:30 PM INTERFACE CONTROL OFFICER [facility] PLT 324 150 - 350 x10'3/uL 08/20/2022 12:30 PM INTERFACE CONTROL OFFICER [facility] MPV 9.9 7.4 - 10.4 FL 08/20/2022 12:30 PM INTERFACE CONTROL OFFICER [facility] CBC COMMENT NORMAL REFERENCE RANGE NOT ESTABLISHED FOR THE PROPORTIONAL LEUKOCYTE DIFFERENTIAL. 08/20/2022 12:30 PM INTERFACE CONTROL OFFICER [facility] NEUTROPHILS % 56.0 % 08/20/2022 12:30 PM INTERFACE CONTROL OFFICER [facility] LYMPHOCYTES % 27.2 % 08/20/2022 12:30 PM INTERFACE CONTROL OFFICER [facility] MONOCYTES % 12.7 % 08/20/2022 12:30 PM INTERFACE CONTROL OFFICER [facility] EOSINOPHILS % 2.9 % 08/20/2022 12:30 PM INTERFACE CONTROL OFFICER [facility] BASOPHILS % 0.8 % 08/20/2022 12:30 PM INTERFACE CONTROL OFFICER [facility] IMMATURE GRANS % 0.4 % 08/20/20 12:30 PM INTERFACE CONTROL OFFICER [facility] NRBC 0.0 % 08/20/2022 12:30 PM INTERFACE CONTROL OFFICER [facility] ABS. NEUTROPHILS 2.69 1.60 - 8.30 x10'3/uL 08/20/2022 12:30 PM INTERFACE CONTROL OFFICER [facility] ABS. LYMPHOCYTES 1.31 0.80 - 4.70 x10'3/uL 08/20/2022 12:30 PM INTERFACE CONTROL OFFICER [facility] ABS. MONOCYTES 0.61 0.00 - 1.50 x10'3/uL 08/20/2022 12:30 PM INTERFACE CONTROL OFFICER [facility] ABS. EOSINOPHILS 0.14 0.00 - 0.40 x10'3/uL 08/20/2022 12:30 PM INTERFACE CONTROL OFFICER [facility] ABS. BASOPHILS 0.04 0.00 - 0.20 x10'3/uL 08/20/2022 12:30 PM INTERFACE CONTROL OFFICER [facility] ABS. IMMATURE GRANULOCYTES 0.02 0.00 - 0.03 x10'3/uL 08/20/2022 12:30 PM INTERFACE CONTROL OFFICER [facility] ABS. NUCLEATED RBC'S 0.00 0.00 x10'3/uL 08/20/2022 12:30 PM [facility] 08/20/2022 11:1 0 AM INTERFACE CONTROL OFFICER Zoila Farias MD LABORATORY Final Result [facility] [address] [place] [address], * (ABNORMAL) COMPREHENSIVE METABOLIC PANEL (08/20/2022 11:10 AM INTERFACE CONTROL OFFICER) SODIUM S/P/B 141 136 - 145 MMOL/L 08/20/2022 12:47 PM [facility] POTASSIUM S/P/B 4.0 3.5 - 5.1 MMOL/L 08/20/2022 12:47 PM [facility] CHLORIDE S/P/B 104 98 - 107 MMOL/L 08/20/2022 12:47 PM [facility] CO2 29.8 21.0 - 32.0 MMOL/L 08/20/2022 12:47 PM [facility] GLUCOSE 84 70 - 99 MG/DL 08/20/2022 12:47 PM [facility] Comment: FASTING GLUCOSE 100 TO 125 MG/DL IS CONSISTENT WITH IMPAIRED FASTING GLUCOSE. FASTING GLUCOSE >125 MG/DL IS CONSISTENT WITH DIABETES. RANDOM GLUCOSE >200 MG/DL WITH HYPERGLYCEMIC SYMPTOMS IS CONSISTENT WITH DIABETES. PER ADA GUIDELINES BUN 9 6 - 24 MG/DL 08/20/2022 12:47 PM [facility] CREATININE S/P/B 0.82 0.70 - 1.30 MG/DL 08/20/2022 12:47 PM [facility] CALCIUM S/P/B 8.5 8.4 - 10.5 MG/DL 08/20/2022 12:47 PM [facility] BILIRUBIN TOTAL S/P/B 0.1(L) 0.2 - 1.0 MG/DL 08/20/2022 12:47 PM [facility] Comment: THIS ASSAY IS NOT RECOMMENDED FOR PATIENTS UNDERGOING TREATMENT WITH ELTROMBOPAG DUE TO THE POTENTIAL FOR FALSELY ELEVATED RESULTS. ALKALINE PHOSPHATASE S/P/B 68 45 - 115 U/L 08/20/2022 12:47 PM [facility] AST 26 15 - 37 U/L 08/20/2022 12:47 PM [facility] ALT 19 16 - 63 U/L 08/20/2022 12:47 PM [facility] TOTAL PROTEIN S/P/B 6.5 6.4 - 8.2 G/DL 08/20/2022 12:47 PM [facility] ALBUMIN S/P/B 2.6(L) 3.4 - 5.0 G/DL 08/20/2022 12:47 PM [facility] ANION GAP 7.2 5.0 - 15.0 MMOL/L 08/20/2022 12:47 PM [facility] OSMOLALITY (CALC) 290 MOSM/KG 022 12:47 PM [facility] Comment:REFERENCE RANGE NOT ESTABLISHED GFR ESTIMATE >90 >89 ML/MIN/1. 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
--- OUTSIDE RECORDS SUMMARY | 2024-08-20 13:49 | XMS_ITS | Encounter Summary ---
Author Organization [facility] Address [address] [place] [address]. [place] [address] [place] [address] Care Team Providers Care Correctional Officer Name Role Phone Makr Carmichael DO Primary Care Provider Reason for Visit * Auth/Cert (Routine) Specialty Diagnoses / Procedures Referred By Amanda espinoza Referred To Contact Home Health Services Referral ID Status Reason Start Date Expiration Date Visits Re quested Visits Authorized [id number] 1 1 Encounter Details Date Type Department Care Team (Late st Contact Info) Description 08/15/2022 Home Care Visit [facility] Home Care [facility] [address] [place] [address] Conchita Cazares, RN [address] [place] [address] COC COORD OF CARE INTERDISCIPLINARY MTG Social History Tobacco Use Types Packs/Day Years [...] Coronavirus/COVID-19? No / Unsure 08/03/2022 2:21 AM DUDE RANCH MANAGER documented as of this encounter Functional Status * RETIRED Are you deaf or do you have serious difficulty hearing Answer Date of Assessment Author Status No 07/25/2022 11:00 PM DUDE RANCH MANAGER Acti ve * RETIRED Are you blind or do you have serious difficulty seeing, even when wearing glasses? Answer Date of Assessment Author Status No 07/25/2022 11:00 PM DUDE RANCH MANAGER Acti ve * Do you have serious difficulty walking or climbing stairs? Answer Date of Assessment Author Status No 07/25/2022 11:00 PM DUDE RANCH MANAGER Katie Vega ma, RN Active * Do you have difficulty dressing or bathing? Answer Date of Assessment Author Status No 07/25/2022 11:00 PM DUDE RANCH MANAGER Katie Vega ma RN Active * Because of a physical, mental, or emotional condition, do you have difficulty doing errands alone such as visiting a doctor's office or shopping? Answer Date of Assessment Author Status No 07/25/2022 11:00 PM DUDE RANCH MANAGER Katie Vega ma RN Active documented as of this encounter Mental Status * Because of a physical, mental, or emotional condition, do you have serious difficulty concentrating, remembering, or making decisions? Answer Entry Date Author Status No 07/25/2022 11:00 PM DUDE RANCH MANAGER Katie Vega ma, RN Active documented in this encounter Progress Notes * Conchita Cazares RN - 08/15/2022 8:11 AM [facility] [place] Referrals to other disciplines needed: Yes Home Health Half-Way Reason for Services: SN for management IV infusion antibiotic per midline catheter, cardiopulmonaryassessment related to pneumonia Past Medical History: ??? Respiratory failure (CMS/HCC) pneumonia Loculated effusion -s/p chest tube and VATS for Empyema Copd S/p vats and right decortication RANCH MANAGER documented in this encounter Plan of Treatment Not on file documented as of this encounter Goals Goal Patient Goal Type Associated Problems Recent Progress Patient-Stated? Author Family - family caregiver with be involved in care transitions and discharge planning Lifestyle No Angela Dawkins, RIP AND GROOVE MACHINE OPERATOR documented as of this encounter Visit Diagnoses Not on filedocumented in this encounter Care Teams Correctional Officer Relationship Specialty Start Date End Date Mark Carmichael DO [address] [place] [address] PCP - General FAMILY PRACTICE 07/22/22 documented as of this encounter
--- OUTSIDE RECORDS SUMMARY | 2024-08-20 13:49 | XMS_ITS | Encounter Summary ---
Author Organization [facility] Address [address] [place] [address]. [place] [address] [place] [address] Care Team Providers Care Scratcher Name Role Phone Mark Carmichael DO Primary Care Provider [phone] Reason for Visit * Auth/Cert (Routine) Specialty Diagnoses / Procedures Referred By Amanda espinoza Referred To Contact Home Health Services Referral ID Status Reason Start Date Expiration Date Visits Re quested Visits Authorized [id number] 1 1 Encounter Details Date Type Department Care Team (Late st Contact Info) Description 08/27/2022 1:00 PM POLISHER SAND Home Care Visit [facility] Home [facility] [address] [place] [address] Conchita Cazares, RN [address] [place] [address] SN HOME VISIT Social History Tobacco Use Types Packs/Day Years [...] Coronavirus/COVID-19? No / Unsure 08/03/2022 2:21 AM POLISHER SAND documented as of this encounter Last Filed Vital Signs Vital Sign Reading Time Taken Comments Blood Pressure 162/92 08/27/2022 12:55 PM POLISHER SAND Pulse 64 08/27/2022 12:55 PM POLISHER SAND Temperature 36.2 ??C (97.2 ??F) 08/27/2022 12:[address] Respiratory Rate 22 08/27/2022 12:55 PM POLISHER SAND Oxygen Saturation 97% 08/27/2022 12:55 PM POLISHER SAND Inhaled Oxygen Concentration - - Weight - - Height - - Body Mass Index - - documented in this encounter Functional Status * RETIRED Are you deaf or do you have serious difficulty hearing Answer Date of Assessment Author Status No 07/25/2022 11:00 PM POLISHER SAND Acti ve * RETIRED Are you blind or do you have serious difficulty seeing, even when wearing glasses? Answer Date of Assessment Author Status No 07/25/2022 11:00 PM POLISHER SAND Acti ve * Do you have serious difficulty walking or climbing stairs? Answer Date of Assessment Author Status No 07/25/2022 11:00 PM POLISHER SAND Katie Vega ma, RN Active * Do you have difficulty dressing or bathing? Answer Date of Assessment Author Status No 07/25/2022 11:00 PM POLISHER SAND Katie Vega ma RN Active * Because of a physical, mental, or emotional condition, do you have difficulty doing errands alone such as visiting a doctor's office or shopping? Answer Date of Assessment Author Status No 07/25/2022 11:00 PM POLISHER SAND Katie Vega ma RN Active documented as of this encounter Mental Status * Because of a physical, mental, or emotional condition, do you have serious difficulty concentrating, remembering, or making decisions? Answer Entry Date Author Status No 07/25/2022 11:00 PM POLISHER SAND Katie Vega ma RN Active documented in this encounter Plan of Treatment Not on file documented as of this encounter Goals Goal Patient Goal Type Associated Problems Recent Progress Patient-Stated? Author Family - family caregiver with be involved in care transitions and discharge planning Lifestyle Angela Pena, CONCESSIONIST documented as of this encounter Visit Diagnoses Not on filedocumented in this encounter Home Health Visit - Care Plan Visit Details Visit Type -SN - Home Visit Discipline -Fpc Problems Problem Description Start Date Status Goals Interve ntions Pain/Physical Discomfort Disciplines: SN Patient is experiencing pain/physical discomfort. 08/09/2022 Active 1 goal linked to scheduled/document ed intervention 2 goal interventions scheduled/document ed in this visit Collaboration of Care Disciplines: SN Collaboration for safe care. 08/09/2022 Active 5 goals linked to scheduled/document ed interventions 12 goal interventions scheduled/document ed in this visit Fall Precautions Disciplines: SN Patient at risk for falls or has had recent fall occurrence(s). 08/09/2022 Active 1 goal linked to scheduled/document ed intervention 4 goal interventions scheduled/document ed in this visit Learning/Teac raul Needs - IV Therapy Disciplines: SN Teaching and learning needs for performing home IV therapy. 08/09/2022 Active 1 goal linked to scheduled/document ed intervention 1 problem intervention scheduled/document ed in this visit 6 goal interventions scheduled/document ed in this visit Pleural Effusion Disciplines: SN Care related to pleural effusion. 08/09/2022 Active 1 goal linked to scheduled/document ed intervention 6 goal interventions scheduled/document ed in this visit Psychosocial Status Disciplines: SN Care related to depression and anxiety. 08/09/2022 Active 1 goal linked to scheduled/document ed intervention 1 goal intervention scheduled/document ed in this visit Pneumonia Disciplines: SN Care related to pneumonia. 08/09/2022 Active 1 goal linked to scheduled/document ed intervention 2 goal interventions scheduled/document ed in this visit Goals Goal Associated Problem Outcome Goal Met? Visit Notes Patient's pain/physical discomfort will be reduced to the level of patient's stated goal. Description: - Patient's pain/physical discomfort will be reduced to the level of patient's stated goal by 09/08/22. - Patient's desired pain goal is 4/10. - Patient will verbalize understanding of the pain management plan by 09/08/22. Pain/Physical Discomfort Progressing No Hosptial Readmission Reduction Description: Hospital Readmission Reduction - Low Risk (0-6 risk factors). Patient's risk number is 6. Hospital Readmission will be avoided during the first 60-day episode of Homecare through frequency of assessment visits Collaboration of Care Progressing No Patient safety met through collaboration for safe care. Description: Clinicians will communicate patient care and safety needs during episode of care through 09/08/22. Collaboration of Care Progressing No Nutritional Status for Optimal Health Description: Patient will demonstrate adequate nutritional status as evidenced by stabilization of weight and intake of required nutrients for optimal health and functioning by 09/08/22. Collaboration of Care Progressing No Patient verbalizes understanding of medication regimen Description: Patient will verbalize understanding of medication regimen by 09/08/22. Collaboration of Care Progressing No Patient meets homebound requirements. Description: Patient meets requirements of homebound status as evidenced by infusion therapy, weakness Other homebound reasons: fall risk, gait limited to household distances, limited endurance . Collaboration of Care Progressing No Patient/caregiver maintains a safe environment. Description: Patient/caregiver will demonstrate ability to maintain a safe environment without injuries/falls by 09/08/22. Fall Precautions Progressing No Patient/caregiver demonstrates ability to safely perform and/or administer IV flush Description: - Patient will demonstrate ability to safely perform administration of IV medications by 09/08/22. - Patient will demonstrate ability to correctly perform flushing technique by 09/08/22. Learning/Teaching Needs - IV Therapy Progressing No Patient's pulmonary care needs met without signs/symptoms of complications. Description: - Patient verbalizes comfort by 09/08/22. - Patient demonstrates a return to baseline pulmonary function by 09/08/22 - Patient remains infection and complication free through 09/08/22 Pleural Effusion Progressing No Patient will understand psychosocial needs Description: Patient will verbalize understanding of depression and anxiety management by 08/18/22 Psychosocial Status Progressing No Patient's pulmonary care needs met without signs/symptoms of complications. Description: Patient will demonstrate a return to baseline pulmonary function with resolution of infection by 09/08/22. Pneumonia Progressing No Interventions Intervention Associated Problem/Goal Status Variance Visit [...] the level of patient's stated goal. Completed Teach principles of pain management and involve patient in developing pain control regimen. Instruct patient on the cause(s) of pain. Instruct patient to call agency for unsatisfactory pain relief. Offer written material related to pain medication to patient. Instruct patient on administration and safe keeping of pain medications and the need to keep accurate records of dosages and times. Provide patient with a recording tool to enter pain level, situation, medication dosage, and effect of administered medications. Assess Pain Description: -Perform comprehensive pain assessment [...] met through collaboration for safe care. Completed discharge to self care when goals met Care Coordination Description: Clinician to review plan of care with patient/caregivers(s). Patient/Caregiver(s) agree(s) to plan of care and agrees to participate in care.??Disciplines RN Problem:Collaboratio n of Care Goal:Patient safety met through collaboration for safe care. Completed Plan for Next Visit Description: Next visit plan summation Problem:Collaboratio n of Care Goal:Patient safety met through collaboration for safe care. Completed Next visit scheduled 09/03/22 for mid line catheter care, labs, Patient aware of and agreeable to plan. Advised to call Agency for non-emergent questions/concerns. Instruct Disaster/Evacuation Plan Description: Instruct in planning [...] Goal:Patient verbalizes understanding of medication regimen Completed reconciliation of medications performed, no change in dose Medication Management Description: - Assess Patient ability [...] diagnosis of J85.0, necrotizing pneumonia.?? Results to [facility] Dr. Zoila Farias [phone] and [facility]: . Problem:Learning/Tea daniel Needs - IV Therapy Goal:Patient/caregiv er demonstrates ability to safely perform and/or administer IV flush Completed Obtained from right antecubital vein per venipunctuer with 23 g needle on 2nd attempts, CBC, CMP obtained, pressure held to site for 3 minutes, bandaid applieed Patient tolerated good. Specimen taken to [facility] lab IV Administration Description: Skilled nurse, Patient and [...] safely perform and/or administer IV flush Completed Patient instructed on frequent/proper hand-washing techniques, Standard precautions, avoid crowds and persons with known infections, staying current with immunizations, s/s of infection, use of incentive spirometer, use of antibiotics and encourage adequate diet and fluid intake. IV Dressing Change Description: - Skilled nurse to change IV site dressing per protocol. - Midline dressing to be changed 24 hours after insertion, then weekly and as needed for soiled/loosened dressing. Problem:Learning/Tea daniel Needs - IV Therapy Goal:Patient/caregiv er demonstrates ability to safely perform and/or administer IV flush Completed Dressing change to left, upper, arm performed by SN. Old dressing removed. Well tolerated by patient.. Site Cleanse with chlorprep swa b x 3. air dry. Applied stat lock, transparent occlussive dressing Lab draw Description: Lab draw via venipuncture for CBC for Dx:D64.9 Anemia on 08/13/22. results to Dr. Austen Carmichael fax: [phone] Problem:Learning/Tea daniel Needs - IV Therapy Completed [...] needs met without signs/symptoms of complications. Completed Patient instructed on frequent/proper hand-washing techniques, Standard precautions, avoid crowds and persons with known infections, staying current with immunizations, s/s of infection, use of incentive spirometer, use of antibiotics and encourage adequate diet and fluid intake. Disease Management Description: - Instruct Patient in [...] needs met without signs/symptoms of complications. Completed Energy conservation strategies instructed with Patient . Instruct Disease Process Description: - Discuss signs/symptoms, complications, and actions to take with disease progression and if exacerbation occurs. - Instruct Patient about disease mechanisms and progression. Problem:Pleural Effusion Goal:Patient's pulmonary care needs met without signs/symptoms of complications. Completed Assess Psychosocial Status Description: - Assess for depression and anxiety. - Assess support systems and coping. - Refer to SOCIAL SECRETARY as needed. - Notify physician as needed. [...] Completed documented in this encounter Care Teams Scratcher Relationship Specialty Start Date End Date Mark Carmichael DO [address] [place] [address] PCP - General FAMILY PRACTICE 07/22/22 documented as of this encounter
--- OUTSIDE RECORDS SUMMARY | 2024-08-20 13:49 | XMS_ITS | Encounter Summary ---
Author Organization [facility] Address [address] [place] [address]. [place] [address] [place] [address] Care Team Providers Care Hammerer Helper Name Role Phone Mark Carmichael DO Primary Care Provider Reason for Visit * Auth/Cert (Routine) Specialty Diagnoses / Procedures Referred By Amanda espinoza Referred To Contact Home Health Services Referral ID Status Reason Start Date Expiration Date Visits Re quested Visits Authorized [id number] 1 1 Encounter Details Date Type Department Care Team (Late st Contact Info) Description 08/20/2022 8:15 AM SUPERVISOR PASTE PLANT Home Care Visit [facility] Home [facility] [address] [place] [address] Conchita Cazares, RN [address] [place] [address] SN HOME VISIT Social History Tobacco Use [...] Coronavirus/COVID-19? No / Unsure 08/03/2022 2:21 AM SUPERVISOR PASTE PLANT documented as of this encounter Last Filed Vital Signs Vital Sign Reading Time Taken Comments Blood Pressure 120/62 08/20/2022 10:35 AM SUPERVISOR PASTE PLANT Pulse 118 08/20/2022 10:35 AM SUPERVISOR PASTE PLANT Temperature 36.4 ??C (97.6 ??F) 08/20/2022 10:[address] Respiratory Rate 16 08/20/2022 10:35 AM SUPERVISOR PASTE PLANT Oxygen Saturation 97% 08/20/2022 10:35 AM SUPERVISOR PASTE PLANT Inhaled Oxygen Concentration - - Weight - - Height - - Body Mass Index - - documented in this encounter Functional Status * RETIRED Are you deaf or do you have serious difficulty hearing Answer Date of Assessment Author Status No 07/25/2022 11:00 PM SUPERVISOR PASTE PLANT Acti ve * RETIRED Are you blind or do you have serious difficulty seeing, even when wearing glasses? Answer Date of Assessment Author Status No 07/25/2022 11:00 PM SUPERVISOR PASTE PLANT Acti ve * Do you have serious difficulty walking or climbing stairs? Answer Date of Assessment Author Status No 07/25/2022 11:00 PM SUPERVISOR PASTE PLANT Katie Vega ma, RN Active * Do you have difficulty dressing or bathing? Answer Date of Assessment Author Status No 07/25/2022 11:00 PM SUPERVISOR PASTE PLANT Katie Vega ma RN Active * Because of a physical, mental, or emotional condition, do you have difficulty doing errands alone such as visiting a doctor's office or shopping? Answer Date of Assessment Author Status No 07/25/2022 11:00 PM SUPERVISOR PASTE PLANT Katie Vega ma RN Active documented as of this encounter Mental Status * Because of a physical, mental, or emotional condition, do you have serious difficulty concentrating, remembering, or making decisions? Answer Entry Date Author Status No 07/25/2022 11:00 PM Katie Bueno ma RN Active documented in this encounter Plan of Treatment Not on file documented as of this encounter Goals Goal Patient Goal Type Associated Problems Recent Progress Patient-Stated? Author Family - family caregiver with be involved in care transitions and discharge planning Lifestyle Angela Pena, DENTAL ASSISTANT MEDICAL ASSISTANT documented as of this encounter Visit Diagnoses Not on filedocumented in this encounter Home Health Visit - Care Plan Visit Details Visit Type -SN - Home Visit Discipline -Long-Term Problems Problem Description Start Date [...] 1 goal linked to scheduled/document ed intervention 7 goal interventions scheduled/document ed in this visit [...] for safe care. Completed Next visit scheduled 08/27/22 for labs, midline catheter care Patient aware of and agreeable to plan. [...] diagnosis of J85.0, necrotizing pneumonia.?? Results to [facility] Dr. Zoila Farias [phone] and [facility]: . Problem:Learning/Tea daniel Needs - IV Therapy Goal:Patient/caregiv er demonstrates ability to safely perform and/or administer IV flush Completed Obtained from venipuncture for cbc, cmp. Patient tolerated good. Covered with bandaid. [facility] IV Administration Description: Skilled nurse, Patient [...] administer IV flush Completed Dressing change to midline catheter dressing change per sterile technique per RN cleansed with chlorprep swabs x 3, air dried, stat lock applied transparent occlussive dressing applied Lab draw Description: Lab draw via venipuncture for CBC for Dx:D64.9 Anemia on 08/13/22. results to Dr. Austen Carmichael fax: [phone] Problem:Learning/Tea daniel Needs - IV Therapy Completed [...] needs met without signs/symptoms of complications. Completed Incision Site Care Description: Instruct Patient on wound care and signs/symptoms of infection. Cover incisions with bandaid for first few days at home then leave open to air as long as no drainage present. Problem:Pleural Effusion Goal:Patient's pulmonary care needs met without signs/symptoms of complications. Completed Assess Psychosocial Status Description: - Assess for depression and anxiety. - Assess support systems and coping. - Refer to TRANSIT CLERK as needed. - Notify physician as needed. [...] Completed documented in this encounter Care Teams Hammerer Helper Relationship Specialty Start Date End Date Mark Carmichael DO [address] [place] [address] PCP - General FAMILY PRACTICE 07/22/22 documented as of this encounter
--- OUTSIDE RECORDS SUMMARY | 2024-08-20 13:50 | XMS_ITS | Encounter Summary ---
Author Organization [facility] Address [address] [place] [address]. [place] [address] [place] [address] Care Team Providers Care President Name Role Phone Mark Carmichael DO Primary Care Provider [phone] Reason for Visit * Auth/Cert (Routine) Specialty Diagnoses / Procedures Referred By Amanda espinoza Referred To Contact Home Health Services Referral ID Status Reason Start Date Expiration Date Visits Re quested Visits Authorized [id number] 1 1 Encounter Details Date Type Department Care Team (Late st Contact Info) Description 08/09/2022 11:30 AM MANDOLIN REPAIR PERSON Home Care Visit [facility] Home [facility] [address] [place] [address] Vidya Pierce RN SN OASIS START OF CARE Social History Tobacco Use Types Packs/Day Years [...] Coronavirus/COVID-19? No / Unsure 08/03/2022 2:21 AM MANDOLIN REPAIR PERSON documented as of this encounter Last Filed Vital Signs Vital Sign Reading Time Taken Comments Blood Pressure 118/76 08/09/2022 12:40 PM MANDOLIN REPAIR PERSON Pulse 56 08/09/2022 12:34 PM MANDOLIN REPAIR PERSON Temperature 36.1 ??C (96.9 ??F) 08/09/2022 12:[address] Respiratory Rate 18 08/09/2022 12:34 PM MANDOLIN REPAIR PERSON Oxygen Saturation 96% 08/09/2022 12:34 PM MANDOLIN REPAIR PERSON Inhaled Oxygen Concentration - - Weight - - Height - - Body Mass Index - - documented in this encounter Functional Status * RETIRED Are you deaf or do you have serious difficulty hearing Answer Date of Assessment Author Status No 07/25/2022 11:00 PM MANDOLIN REPAIR PERSON Acti ve * RETIRED Are you blind or do you have serious difficulty seeing, even when wearing glasses? Answer Date of Assessment Author Status No 07/25/2022 11:00 PM MANDOLIN REPAIR PERSON Acti ve * Do you have serious difficulty walking or climbing stairs? Answer Date of Assessment Author Status No 07/25/2022 11:00 PM MANDOLIN REPAIR PERSON Katie Vega ma, RN Active * Do you have difficulty dressing or bathing? Answer Date of Assessment Author Status No 07/25/2022 11:00 PM MANDOLIN REPAIR PERSON Katie Vega ma RN Active * Because of a physical, mental, or emotional condition, do you have difficulty doing errands alone such as visiting a doctor's office or shopping? Answer Date of Assessment Author Status No 07/25/2022 11:00 PM MANDOLIN REPAIR PERSON Katie Vega ma RN Active documented as [...] and discharge planning Lifestyle No Angela Dawkins, ORTHOPEDIC MECHANIC documented as of this encounter Visit Diagnoses Not on filedocumented in this encounter Home Health Visit - Care Plan Visit Details Visit Type -SN - OASIS Start of Care Discipline -Nursing Home Problems Problem Description Start Date Status Goals [...] medication dosage, and effect of administered medications. Problem:Pain/Physi gee Discomfort Goal:Patient's pain/physical discomfort will be reduced [...] or concerns check complete (see Pain Assessment). Problem:Pain/Physi gee Discomfort Goal:Patient's pain/physical discomfort will be reduced to the level of patient's stated goal. Completed Hospitalization Risk Description: Instruct Patient in minimizing hospitalization risk related to COPD, Discharged from Hospital or SNF, Home Safety Risks, More than 2 Secondary Diagnoses, ADL Assistance Needed and Depression. Problem:Collaborat ion of Care Goal:Hosptial Readmission Reduction Completed Assess Vital Signs Description: Obtain and record vital signs. Report to MD . No BP in left arm-midline. BP:??systolic blood pressure <90 or >160; diastolic blood pressure <60 or >90.?? Temperature:?? >100.5 F.?? Pulse: <60 or >100 bpm.?? Respiratory Rate:?? <12 or >28 /min.?? SPO2: <90%. May check SPO2 as needed for initial assessment or dyspnea. ?? Problem:Collaborat ion of Care Goal:Patient safety met through collaboration for safe care. Completed Instruct Home Safety Description: Instruct patient on strategies/modificatio ns to home environment. Patient up as tolerated with walker or lesser device or no device as directed. no lifting more than 10lbs for three weeks then gradually increase. Problem:Collaborat ion of Care Goal:Patient safety met through collaboration for safe care. Completed Insurance Verification Description: Verify with patient/caregiver current insurance coverage. Problem:Collaborat ion of Care Goal:Patient safety met through collaboration for safe care. Completed Patient's coverage status: No change in coverage [employer] medicare verified. Plan Towards Discharge Description: Document Patient progress towards discharge. Problem:Collaborat ion of Care Goal:Patient safety met through collaboration for safe care. Completed Care Coordination Description: Clinician to review plan of care with patient/caregivers(s). Patient/Caregiver(s) agree(s) to plan of care and agrees to participate in care.??Disciplines RN Problem:Collaborat ion of Care Goal:Patient safety met through collaboration for safe care. Completed Plan for Next Visit Description: Next visit plan summation Problem:Collaborat ion of Care Goal:Patient safety met through collaboration for safe care. Completed Next visit scheduled 08/13/22 (date) for midline dressing change, assessment, labs, wound care. (plan); Patient aware of and agreeable to plan. Advised to call Agency for non-emergent questions/concerns. Instruct Disaster/Evacuation Plan Description: Instruct in planning and execution of disaster/evacuation plan. Assist Patient in development or revision of plan as indicated. Problem:Collaborat ion of Care Goal:Patient safety met through collaboration for safe care. Completed plan established. patient agreeable. copy left in home Skilled Assessment Risk for Injury Description: Evaluate patient's home environment for potential safety risks, and educate Patient on identified safety risks. Problem:Collaborat ion of Care Goal:Patient safety met through collaboration for safe care. Completed Instruct diet Description: Instruct on As Tolerated diet and any fluid restrictions/requireme nts. Problem:Collaborat ion of Care Goal:Nutritional Status for Optimal Health Completed Medication Reconciliation Description: - Review and identify unnecessary therapeutic duplication. Each clinician to perform bottle check weekly on their first visit of the week. - Patient to take medications from pill bottles set up by Patient Problem:Collaborat ion of Care Goal:Patient verbalizes understanding of medication regimen Completed Medication reconciliation performed with weekly bottle check. Medication Management Description: - Assess Patient ability to manage medications. Provide detailed instruction on proper administration and medication management. - Instruct Patient in medication administration, purpose, dosages, preparation, scheduling, side effects, food/drug & drug/drug interactions, storage, and potential complications. Problem:Collaborat ion of Care Goal:Patient verbalizes understanding of medication regimen Completed Home medication management instructed with patient. Patient verbalizes understanding . Instruct on fall prevention Description: Educate Patient about fall prevention. Problem:Fall Precautions Goal:Patient/careg iver maintains a safe environment. Completed Report falls to Provider within 24 hours Description: Report witnessed or reported falls to provider within 24 hours . Problem:Fall Precautions Goal:Patient/careg iver maintains a safe environment. Completed Assess appropriateness for homecare Description: Assess Patient ability to remain safe in current environment. Problem:Fall Precautions Goal:Patient/careg iver maintains a safe environment. Completed Teach safe use of assistive devices Description: Assess DME needs and appropriateness of current DME used cane. Problem:Fall Precautions Goal:Patient/careg iver maintains a safe environment. Completed IV Administration Description: Skilled nurse, Patient and Caregiver to gather supplies and administer IV medication as ordered including saline and heparin flushes as ordered or per protocol. Problem:Learning/T eaching Needs - IV Therapy Goal:Patient/careg iver demonstrates ability to safely perform and/or administer IV flush Completed Instruct IV Supplies Description: Instruct Patient in how to gather supplies, prepare supplies, administer IV medication, and disconnect IV medication. Problem:Learning/T eaching Needs - IV Therapy Goal:Patient/careg iver demonstrates ability to safely perform and/or administer IV flush Completed Instruct IV Flush Description: - Instruct Patient in how to perform flushing of IV line according to MD orders or protocol. - Flush IV catheter with 5mL of Heparin every 24 hours . Problem:Learning/T eaching Needs - IV Therapy Goal:Patient/careg iver demonstrates ability to safely perform and/or administer [...] to notify home care agency and/or physician. Problem:Learning/T eaching Needs - IV Therapy Goal:Patient/careg iver demonstrates ability to safely perform and/or administer IV flush Completed Patient instructed on frequent/proper hand-washing techniques, Standard precautions, avoid crowds and persons with known infections, staying current with immunizations, s/s of infection, use of incentive spirometer, use of antibiotics and encourage adequate diet and fluid intake. Lab Collection Description: Lab draw via venipuncture for CBC and CMP weekly on Mondays starting 08/13/22 for diagnosis of J85.0, necrotizing pneumonia.?? Results to [facility] Dr. Zoila Farias [phone] and [facility]: . Problem:Learning/T eaching Needs - IV Therapy Goal:Patient/careg iver demonstrates ability to safely perform and/or administer IV flush Scheduled with variance Defer to next visit IV Dressing Change Description: - Skilled nurse to change IV site dressing per protocol. - Midline dressing to be changed 24 hours after insertion, then weekly and as needed for soiled/loosened dressing. Problem:Learning/T eaching Needs - IV Therapy Goal:Patient/careg iver demonstrates ability to safely perform and/or administer IV flush Scheduled with variance Defer to next visit dressing intact, reinforced with tape per patient request. last change 08/08/22 at hospital prior to discharge. Lab draw Description: Lab draw via venipuncture for CBC for Dx:D64.9 Anemia on 08/13/22. results to Dr. Austen Carmichael fax: [phone] Problem:Learning/T eaching Needs - IV Therapy Scheduled with variance Defer to next visit Assess Signs and Symptoms Description: - Assess [...] and encourage adequate diet and fluid intake. Patient verbalizes understanding . Disease Management Description: - Instruct Patient in [...] Energy conservation strategies instructed with Patient . Patient verbalizes understanding of energy conservation strategies. Instruct Disease Process Description: - Discuss signs/symptoms, [...] needs met without signs/symptoms of complications. Completed skilled nurse removed gauze and tape. incisions dry. applied foam border adhesive. patient didn't have bandaid available during visit. Assess Psychosocial Status Description: - Assess for depression and anxiety. - Assess support systems and coping. - Refer to APPLICATION DEVELOPMENT TEAM LEAD as needed. - Notify physician as needed. Problem:Psychosoci al Status Goal:Patient will understand psychosocial needs Completed [...] Completed documented in this encounter Care Teams President Relationship Specialty Start Date End Date Mark Carmichael DO [address] [place] [address] PCP - General FAMILY PRACTICE 07/22/22 documented as of this encounter
--- OUTSIDE RECORDS SUMMARY | 2024-08-20 13:50 | XMS_ITS | Encounter Summary ---
Author Organization [facility] Address [address] [place] [address]. [place] [address] [place] [address] Care Team Providers Care Maintenance Painter Apprentice Name Role Phone Mark Carmichael DO Primary Care Provider Encounter Details Date Type Department Care Team (Latest Contact Info) Description 08/13/2022 10:36 AM FURNITURE DELIVERY DRIVER - 08/13/2022 11:59 PM FURNITURE DELIVERY DRIVER Hospital Encounter [facility] [place] [address] Zoila Farias MD [address] [place] [address] Discharge Disposition: Home or Self Care (Routine [...] Coronavirus/COVID-19? No / Unsure 08/03/2022 2:21 AM FURNITURE DELIVERY DRIVER documented as of this encounter Functional Status * RETIRED Are you deaf or do you have serious difficulty hearing Answer Date of Assessment Author Status No 07/25/2022 11:00 PM FURNITURE DELIVERY DRIVER Acti ve * RETIRED Are you blind or do you have serious difficulty seeing, even when wearing glasses? 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) CBC W/DIFF AUTOMATED Routine 08/13/2022 9:30 AM FURNITURE DELIVERY DRIVER Gangrene and necrosis of lung ([facility]/HCC HHS/HCC) documented in this encounter Results * (ABNORMAL) CBC W/DIFF AUTOMATED (08/13/2022 9:30 AM FURNITURE DELIVERY DRIVER) WBC 4.7 4.0 - 10.8 x10'3/uL 08/13/2022 10:50 AM FURNITURE DELIVERY DRIVER [facility] RBC 3.18(L) 4.50 - 6.10 x10'6/uL 08/13/2022 10:50 AM [facility] HGB 10.0(L) 13.0 - 18.0 G/DL 08/13/2022 10:50 AM [facility] HCT 32.9(L) 37.0 - 52.0 % 08/13/2022 10:50 AM [facility] MCV 103.5(H) 78.0 - 100.0 FL 08/13/2022 10:50 AM FURNITURE DELIVERY DRIVER [facility] MCH 31.4(H) 27.0 - 31.0 PG 08/13/2022 10:50 AM [facility] MCHC 30.4(L) 33.0 - 36.0 G/DL 08/13/2022 10:50 AM [facility] RDW 15.9(H) 11.5 - 14.5 % 08/13/2022 10:50 AM [facility] PLT 239 150 - 350 x10'3/uL 08/13/2022 10:50 AM [facility] MPV 10.5(H) 7.4 - 10.4 FL 08/13/2022 10:50 AM [facility] CBC COMMENT NORMAL REFERENCE RANGE NOT ESTABLISHED FOR THE PROPORTIONAL LEUKOCYTE DIFFERENTIAL. 08/13/2022 10:50 AM [facility] NEUTROPHILS % 62.6 % 08/13/2022 10:50 AM [facility] LYMPHOCYTES % 23.1 % 08/13/2022 10:50 AM [facility] MONOCYTES % 9.4 % 08/13/2022 10:50 AM [facility] EOSINOPHILS % 4.1 % 08/13/2022 10:50 AM [facility] BASOPHILS % 0.4 % 08/13/2022 10:50 AM [facility] IMMATURE GRANS % 0.4 % 08/13/20 10:50 AM [facility] NRBC 0.0 % 08/13/2022 10:50 AM [facility] ABS. NEUTROPHILS 2.92 1.60 - 8.30 x10'3/uL 08/13/2022 10:50 AM [facility] ABS. LYMPHOCYTES 1.08 0.80 - 4.70 x10'3/uL 08/13/2022 10:50 AM [facility] ABS. MONOCYTES 0.44 0.00 - 1.50 x10'3/uL 08/13/2022 10:50 AM [facility] ABS. EOSINOPHILS 0.19 0.00 - 0.40 x10'3/uL 08/13/2022 10:50 AM [facility] ABS. BASOPHILS 0.02 0.00 - 0.20 x10'3/uL 08/13/2022 10:50 AM [facility] ABS. IMMATURE GRANULOCYTES 0.02 0.00 - 0.03 x10'3/uL 08/13/2022 10:50 AM [facility] ABS. NUCLEATED RBC'S 0.00 0.00 x10'3/uL 08/13/2022 10:50 AM [facility] 08/13/2022 9:30 AM FURNITURE DELIVERY DRIVER Zoila Farias MD LABORATORY Final Result [facility] [address] [place] [address], * (ABNORMAL) COMPREHENSIVE METABOLIC PANEL (08/13/2022 9:30 AM FURNITURE DELIVERY DRIVER) SODIUM S/P/B 135(L) 136 - 145 MMOL/L 08/13/2022 11:09 AM [facility] POTASSIUM S/P/B 4.0 3.5 - 5.1 MMOL/L 08/13/2022 11:09 AM [facility] CHLORIDE S/P/B 105 98 - 107 MMOL/L 08/13/2022 11:09 AM [facility] CO2 20.6(L) 21.0 - 32.0 MMOL/L 08/13/2022 11:09 AM [facility] GLUCOSE 86 70 - 99 MG/DL 08/13/2022 11:09 AM [facility] Comment: FASTING GLUCOSE 100 TO 125 MG/DL IS CONSISTENT WITH IMPAIRED FASTING GLUCOSE. FASTING GLUCOSE >125 MG/DL IS CONSISTENT WITH DIABETES. RANDOM GLUCOSE >200 MG/DL WITH HYPERGLYCEMIC SYMPTOMS IS CONSISTENT WITH DIABETES. PER ADA GUIDELINES BUN 6 6 - 24 MG/DL 08/13/2022 11:09 AM [facility] CREATININE S/P/B 0.87 0.70 - 1.30 MG/DL 08/13/2022 11:09 AM [facility] CALCIUM S/P/B 8.7 8.4 - 10.5 MG/DL 08/13/2022 11:09 AM [facility] BILIRUBIN TOTAL S/P/B 0.2 0.2 - 1.0 MG/DL 08/13/2022 11:09 AM [facility] Comment: THIS ASSAY IS NOT RECOMMENDED FOR PATIENTS UNDERGOING TREATMENT WITH ELTROMBOPAG DUE TO THE POTENTIAL FOR FALSELY ELEVATED RESULTS. ALKALINE PHOSPHATASE S/P/B 62 45 - 115 U/L 08/13/2022 11:09 AM [facility] AST 21 15 - 37 U/L 08/13/2022 11:09 AM [facility] ALT 12(L) 16 - 63 U/L 08/13/2022 11:09 AM [facility] TOTAL PROTEIN S/P/B 6.7 6.4 - 8.2 G/DL 08/13/2022 11:09 AM [facility] ALBUMIN S/P/B 2.1(L) 3.4 - 5.0 G/DL 08/13/2022 11:09 AM [facility] ANION GAP 9.4 5.0 - 15.0 MMOL/L 08/13/2022 11:09 AM [facility] OSMOLALITY (CALC) 277 MOSM/KG 022 11:09 AM [facility] Comment:REFERENCE RANGE NOT ESTABLISHED GFR ESTIMATE >90 >89 ML/MIN/1. 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
--- OUTSIDE RECORDS SUMMARY | 2024-08-20 13:50 | XMS_ITS | Encounter Summary ---
Author Organization [facility] Address [address] [place] [address]. [place] [address] [place] [address] Care Team Providers Care Conveyor Weigher Operator Name Role Phone Mark Carmichael DO Primary Care Provider Reason for Visit * Auth/Cert (Routine) Specialty Diagnoses / Procedures Referred By Amanda espinoza Referred To Contact Home Health Services Referral ID Status Reason Start Date Expiration Date Visits Re quested Visits Authorized [id number] 1 1 Encounter Details Date Type Department Care Team (Late st Contact Info) Description 08/13/2022 9:00 AM PRODUCT MARKETING ENGINEER Home Care Visit [facility] Home [facility] [address] [place] [address] Conchita Cazares, RN [address] [place] [address] SN HOME VISIT Social History Tobacco Use [...] Coronavirus/COVID-19? No / Unsure 08/03/2022 2:21 AM PRODUCT MARKETING ENGINEER documented as of this encounter Last Filed Vital Signs Vital Sign Reading Time Taken Comments Blood Pressure 130/76 08/13/2022 9:51 AM PRODUCT MARKETING ENGINEER Pulse 88 08/13/2022 9:51 AM PRODUCT MARKETING ENGINEER Temperature 36.2 ??C (97.2 ??F) 08/13/2022 9:51 AM CS T Respiratory Rate 20 08/13/2022 9:51 AM PRODUCT MARKETING ENGINEER Oxygen Saturation 92% 08/13/2022 9:51 AM PRODUCT MARKETING ENGINEER Inhaled Oxygen Concentration - - Weight - - Height - - Body Mass Index - - documented in this encounter Functional Status * RETIRED Are you deaf or do you have serious difficulty hearing Answer Date of Assessment Author Status No 07/25/2022 11:00 PM PRODUCT MARKETING ENGINEER Acti ve * RETIRED Are you blind or do you have serious difficulty seeing, even when wearing glasses? Answer Date of Assessment Author Status No 07/25/2022 11:00 PM PRODUCT MARKETING ENGINEER Acti ve * Do you have serious difficulty walking or climbing stairs? Answer Date of Assessment Author Status No 07/25/2022 11:00 PM PRODUCT MARKETING ENGINEER Katie Vega ma, RN Active * Do you have difficulty dressing or bathing? Answer Date of Assessment Author Status No 07/25/2022 11:00 PM PRODUCT MARKETING ENGINEER Katie Vega ma RN Active * Because of a physical, mental, or emotional condition, do you have difficulty doing errands alone such as visiting a doctor's office or shopping? Answer Date of Assessment Author Status No 07/25/2022 11:00 PM PRODUCT MARKETING ENGINEER Katie Vega ma RN Active documented as of this encounter Mental Status * Because of a physical, mental, or emotional condition, do you have serious difficulty concentrating, remembering, or making decisions? Answer Entry Date Author Status No 07/25/2022 11:00 PM PRODUCT MARKETING ENGINEER Katie Vega ma RN Active documented in this encounter Plan of Treatment Not on file documented as of this encounter Goals Goal Patient Goal Type Associated Problems Recent Progress Patient-Stated? Author Family - family caregiver with be involved in care transitions and discharge planning Lifestyle Angela Pena, [employer] documented as of this encounter Visit Diagnoses Not on filedocumented in this encounter Home Health Visit - Care Plan Visit Details Visit Type -SN - Home Visit Discipline -Snf Problems Problem Description Start Date Status Goals [...] for safe care. Completed Next visit scheduled 08/20/22 for midline catheter dressing change, labs, cardiopulmonary assessment Patient aware of and agreeable to plan. [...] to [facility] Dr. Zoila Farias [phone] and Option Care: . Problem:Learning/Tea daniel Needs - IV Therapy Goal:Patient/caregiv er demonstrates ability to safely perform and/or administer IV flush Completed Obtained from .right lorsal hand vein with 23 g butterfly needle, patient tolerated well, Covered with pressure dressing,. Specimen taken to [facility] lab IV Administration Description: Skilled nurse, [...] flush Completed Dressing change to midline catheter left upper arm performed by SN. Old dressing removed. Well tolerated by patient.. Site Other: chlorprep swabs x3 , air dried. Applied stat lock, transparent occlusive dressing. Lab draw Description: Lab draw via venipuncture for CBC for Dx:D64.9 Anemia on 08/13/22. results to Dr. Austen Carmichael fax: [phone] Problem:Learning/Tea daniel Needs - IV Therapy Completed [...] support systems and coping. - Refer to BOOKBINDER CHIEF as needed. - Notify physician as needed. [...] Completed documented in this encounter Care Teams Conveyor Weigher Operator Relationship Specialty Start Date End Date Mark Carmichael DO [address] [place] [address] PCP - General FAMILY PRACTICE 07/22/22 documented as of this encounter
--- OUTSIDE RECORDS SUMMARY | 2024-08-20 13:50 | XMS_ITS | Encounter Summary ---
Author Organization [facility] Address [facility]. [place], [place] [id number] [place] [id number] Care Team Providers Care Nitric Acid Concentrator Operator Name Role Phone Joe Tam DO Primary Care Provider [phone] Reason for Referral * Procedure (Routine) - Closed Specialty Diagnoses / Procedures Referred By Contac t Referred To Contact Procedures Home O2 Adali Teague FNP [address] [facility] [address] [place] [address] Phone: tel: fax: Referral ID Status Reason Start Date Expiration Date Visits Re quested Visits Authorized [id number] Closed 08/06/2022 08/06/2023 1 1 APEUTIC SPECIALIST * Procedure (Routine) - Closed Specialty Diagnoses / Procedures Referred By Contac t Referred To Contact Procedures Home O2 Lanre Moore MD Phone: tel: fax: Referral ID Status Reason Start Date Expiration Date Visits Re quested Visits Authorized [id number] Closed 08/05/2022 08/05/2023 1 1 APEUTIC SPECIALIST * Imaging (Urgent) - Closed Specialty Diagnoses / Procedures Referred By Contac t Referred To Contact RADIOLOGY Procedures CT CHEST WO Patel Vinson MD Referral ID Status Reason Start Date Expiration Date Visits Re quested Visits Authorized [id number] Closed 08/04/2022 08/04/2023 1 1 APEUTIC SPECIALIST * Imaging (Urgent) - Closed Specialty Diagnoses / Procedures Referred By Contac t Referred To Contact RADIOLOGY Procedures CT CHEST WO CON Araceli Hudson PA-C [address] [place] [address] Phone: tel: fax: Referral ID Status Reason Start Date Expiration Date Visits Re quested Visits Authorized [id number] Closed 07/31/2022 07/31/2023 1 1 APEUTIC SPECIALIST * Imaging (Urgent) - Closed Specialty Diagnoses / Procedures Referred By Contac t Referred To Contact RADIOLOGY Procedures US ABD LIMITED Florencio Amaya MD Phone: tel: fax: Referral ID Status Reason Start Date Expiration Date Visits Re quested Visits Authorized [id number] Closed 07/28/2022 07/28/2023 1 1 APEUTIC SPECIALIST * Imaging (Emergency) - Closed Specialty Diagnoses / Procedures Referred By Contac t Referred To Contact Procedures IR MIDLINE PLACEMENT GREATER 3YR IR CENT CATH LESS 5YR Tracy Yo MD Phone: tel: fax: Referral ID Status Reason Start Date Expiration Date Visits Re quested Visits Authorized [id number] Closed 07/25/2022 07/25/2023 1 1 APEUTIC SPECIALIST * Imaging (Urgent) - Closed Specialty Diagnoses / Procedures Referred By Contac t Referred To Contact RADIOLOGY Procedures CT GD CHEST TUBE INSERT RT Florencio Amaya MD Phone: tel: fax: Referral ID Status Reason Start Date Expiration Date Visits Re quested Visits Authorized [id number] Closed 07/26/2022 07/26/2023 1 1 APEUTIC SPECIALIST * Imaging (Emergency) - Closed Specialty Diagnoses / Procedures Referred By Contac t Referred To Contact RADIOLOGY Procedures CTA CHEST+ABD+PEL CTA CHEST+CTA ABDOMEN CTA CHEST+ABD+PEL Tracy Yo MD Phone: tel: fax: Referral ID Status Reason Start Date Expiration Date Visits Re quested Visits Authorized [id number] Closed 07/25/2022 07/25/2023 1 1 APEUTIC SPECIALIST * Imaging (Emergency) - Closed Specialty Diagnoses / Procedures Referred By Contac t Referred To Contact RADIOLOGY Procedures USV VAST TEAM MIDLINE INSERT >5YR [facility] [address] [place] [address] Phone: tel: Referral ID Status Reason Start Date Expiration Date Visits Re quested Visits Authorized [id number] Closed 07/25/2022 07/25/2023 1 1 APEUTIC SPECIALIST * Imaging (Urgent) - Closed Specialty Diagnoses / Procedures Referred By Contac t Referred To Contact RADIOLOGY Procedures USE ECHOCARDIOGRAM Tracy Yo MD Phone: tel: fax: Referral ID Status Reason Start Date Expiration Date Visits Re quested Visits Authorized [id number] Closed 07/25/2022 07/25/2023 1 1 APEUTIC SPECIALIST * (Routine) - Closed Specialty Diagnoses / Procedures Referred By Contac t Referred To Contact Procedures OT eval and treat Tracy Yo MD Phone: tel: fax: Referral ID Status Reason Start Date Expiration Date Visits Re quested Visits Authorized [id number] Closed 07/25/2022 07/25/2023 1 1 APEUTIC SPECIALIST * (Routine) - Closed Specialty Diagnoses / Procedures Referred By Contac t Referred To Contact Procedures PT eval and treat Tracy Yo MD Phone: tel: fax: Referral ID Status Reason Start Date Expiration Date Visits Re quested Visits Authorized [id number] Closed 07/25/2022 07/25/2023 1 1 APEUTIC SPECIALIST Reason for Visit * Auth/Cert (Routine) Specialty Diagnoses / Procedures Referred By Contac t Referred To Contact Diagnoses Respiratory failure (CMS/HCC [facility]/HCC) Acute respiratory failure Respiratory failure ([facility]) Procedures NONE De Villasenor MD [address] [place] [address] Phone: tel: fax: Referral ID Status Reason Start Date Expiration Date Visits Re quested Visits Authorized [id number] 1 1 Encounter Details Date Type Department Care Team (Latest Contact Info) Description 07/25/2022 1:24 PM THERAPEUTIC SPECIALIST - 08/08/2022 11:50 AM THERAPEUTIC SPECIALIST Hospital Encounter [facility] [address] [place] [address] De Villasenor MD [address] [place] [address] Tracy Yo MD [address] [place] [address] Florencio Amaya MD [address] [place] [address] Lanre Winter MD [address] [place], [place] [id number] Discharge Disposition: Home with Home Health Care Social History Tobacco Use Types Packs/Day Years [...] Coronavirus/COVID-19? No / Unsure 08/03/2022 2:21 AM THERAPEUTIC SPECIALIST documented as of this encounter Last Filed Vital Signs Vital Sign Reading Time Taken Comments Blood Pressure 128/70 08/08/2022 11:02 AM THERAPEUTIC SPECIALIST Pulse 69 08/08/2022 11:02 AM THERAPEUTIC SPECIALIST Temperature 37.1 ??C (98.8 ??F) 08/08/2022 1 1:02 AM THERAPEUTIC SPECIALIST Respiratory Rate 13 08/08/2022 8:00 AM THERAPEUTIC SPECIALIST Oxygen Saturation 96% 08/08/2022 11: 02 AM THERAPEUTIC SPECIALIST Inhaled Oxygen Concentration - - Weight 67.5 kg (148 lb 12.8 oz) 07/28/2022 3:26 AM THERAPEUTIC SPECIALIST Height 165.1 cm (5' 5 ) 07/25/2022 1:30 PM THERAPEUTIC SPECIALIST Body Mass Index 24.76 07/25/2022 1:30 PM THERAPEUTIC SPECIALIST documented in this encounter Functional Status * Question Answer Date of Assessment Author Status Do you have serious difficulty walking or climbing stairs? No 07/25/2022 11:00 PM THERAPEUTIC SPECIALIST Noelle Vega RN Active * Question Answer Date of Assessment Author Status Do you have difficulty dressing or bathing? No 07/25/2022 11:00 PM THERAPEUTIC SPECIALIST Nan Vega RN Active Because of a physical, mental, or emotional condition, do you have difficulty doing errands alone such as visiting a doctor's office or shopping? No 07/25/2022 11:00 PM Noelle Bueno RN Active * RETIRED Are you deaf or do you have serious difficulty hearing Answer Date of Assessment Author Status No 07/25/2022 11:00 PM THERAPEUTIC SPECIALIST Acti ve * RETIRED Are you blind or do you have serious difficulty seeing, even when wearing glasses? Answer Date of Assessment Author Status No 07/25/2022 11:00 PM THERAPEUTIC SPECIALIST Acti ve * Do you have serious difficulty walking or climbing stairs? Answer Date of Assessment Author Status No 07/25/2022 11:00 PM Katie Bueno ma RN Active * Do you have difficulty dressing or bathing? Answer Date of Assessment Author Status No 07/25/2022 11:00 PM Katie Bueno ma RN Active * Because of a physical, mental, or emotional condition, do you have difficulty doing errands alone such as visiting a doctor's office or shopping? Answer Date of Assessment Author Status No 07/25/2022 11:00 PM Katie Bueno ma RN Active documented as of this encounter Mental Status * Question Answer Entry Date Author Status Because of a physical, mental, or emotional condition, do you have serious difficulty concentrating, remembering, or making decisions? No 07/25/2022 11:00 PM Nan Bueno RN Active * Because of a physical, mental, or emotional condition, do you have serious difficulty concentrating, remembering, or making decisions? Answer Entry Date Author Status No 07/25/2022 11:00 PM Katie Bueno ma RN Active documented in this encounter Discharge Summaries * Lanre Winter MD - 08/08/2022 11:50 AM CST Physician Discharge Summary Patient ID: Ray [id number] 67-year-old 1955 Primary care physician:JOE TAM DO Admit date: 07/25/2022 Discharge Date: 08/08/2022 Admitting Physician: De Villasenor MD Discharging physician: LANRE WINTER MD Consults: pulmonary/intensive care, ID and CT SURGERY Discharge Diagnoses: Patient Active Problem List Diagnosis ??? Respiratory failure (CMS/HCC) pneumonia Loculated effusion -s/p chest tube and VATS for Empyema Copd S/p vats and right decortication Discharge Exam: Filed Vitals: 08/07/22 2305 08/08/22 0425 08/08/22 0800 08/08/22 1102 BP: 95/58 (!) 123/96 133/80 128/70 Pulse: 74 72 71 69 Resp: 14 11 13 Temp: 97.9 ??F (36.6 ??C) 98.2 ??F (36.8 ??C) 98.8 ??F (37.1 ??C) TempSrc: Oral Oral SpO2: 92% 95% 91% 96% Weight: Height: Physical Exam Vitals and nursing note reviewed. HENT: Head: Normocephalic. Eyes: General: No scleral icterus. Conjunctiva/sclera: Conjunctivae normal. Pupils: Pupils are equal, round, and reactive to light. Neck: Vascular: No JVD. Cardiovascular: Rate and Rhythm: Normal rate and regular rhythm. Pulses: Normal pulses. Heart sounds: No murmur heard. Pulmonary: Effort: Pulmonary effort is normal. No accessory muscle usage or respiratory distress. Breath sounds: Normal breath sounds. No wheezing. Abdominal: General: Bowel sounds are normal. There is no distension. Palpations: Abdomen is soft. There is no mass. Tenderness: There is no abdominal tenderness. There is no guarding or rebound. Musculoskeletal: General: Normal range of motion. Cervical back: Normal range of motion and neck supple. Skin: Findings: No erythema or rash. Neurological: Mental Status: He is alert and oriented to person, place, and time. Cranial Nerves: No cranial nerve deficit. Coordination: Coordination normal. Psychiatric: Mood and Affect: Mood and affect normal. Discharged Condition: fair Hospital Course: admitted with severe acute hypoxic resp failure Acute Hypoxic Respiratory Failure??-improved on RA ?? Copd exacerbation improved on combivent o2 ??Necrotizing pneumonia of right lower lobe??with empyema?? 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 Small pericardial effusion on echo- repeat in 4 weeks ?? Chronic anemia needing transfusion hh??lower monitor - may need transfusion again??hemoglobin is 7-likely some blood loss from recent surgery illness??type and screen ordered??H&H stable overnight likely anemia of chronic disease- hh remains stable since 08/04 - CBC WITH PCP IN 1 WEEK ?? Chronic back pain Anxiety/depression History of tobacco abuse Chronic compression fracture of L3 Lumbar spondylosis History of back trauma ?dvtp resumed??lovenox ?? Hypotension RESOLVED ?? PICC LINE AND ANTIBIOTICS SET UP [facility] Tentative Final Recommendations - Discontinue??Vancomycin and Cefepime. - Transition from cefepime to ceftriaxone 2 g IV every 24 hours with tentative end of therapy 08/30for duration of 4 weeks from VATS. - Continue Metronidazole PO 500 mg q 8h. with tentative end of therapy on 08/30 - Patient s/p VATS procedure 08/02 pending cultures, currently no growth to date. - Pathology pending, will follow peripherally for results. - Appreciate Pulmonology assistance. - Recommend end of treatment chest x-ray in 4 weeks -- Continue picc line for outpatient antibiotic therapy -- While on IV antibiotics, obtain weekly labs - CBC and CMP, please fax to [facility] at [phone] - Please follow-up with [facility] in 3 weeks, please call [phone] to schedule a follow-up apt - Risks of indwelling line/assisted IV antibiotics discussed with patient (including C. diff) -Plan as above discussed with patient, all voiced questions/concerns addressed, voiced agreement and understanding with plan. ?? I explained to pt and family his diagnosis, plan of care med changes benefits and side effects and he expresses understanding and is in agreement Pt was examined and appeared clinically improving and discharged in stable condition Thank you for choosing [facility] -PLEASE CALL [phone] EXT [id number] IF QTS Code Status: Prior Procedure: Procedures (From admission, onward) CBC W/DIFF AUTOMATED Routine COMPREHENSIVE METABOLIC PANEL Routine HEMOGLOBIN AND HEMATOCRIT STAT HOME O2 EVAL Routine CBC W/DIFF AUTOMATED Routine COMPREHENSIVE METABOLIC PANEL Routine VANCOMYCIN TIMED HOME O2 EVAL Routine TYPE AND SCREEN Routine CT CHEST WO CON Today XR CHEST PA OR AP 1V Today, Status: Canceled CBC W/DIFF AUTOMATED Routine COMPREHENSIVE METABOLIC PANEL Routine XR CHEST PORTABLE STAT CULTURE, TISSUE W/GRAM STAIN NCLD CULTURE, ANAEROBIC NCLD TB/AFB CULTURE,NON BLOOD SPEC Routine CULTURE, FUNGUS Routine PATHOLOGY Routine SMEAR,FLUOR STAIN,ACID FAST Routine TYPE AND SCREEN Routine VANCOMYCIN TIMED BMP WITHOUT GLUCOSE TIMED CBC W/DIFF AUTOMATED Routine COMPREHENSIVE METABOLIC PANEL Routine CT CHEST WO CON JAC CBC W/DIFF AUTOMATED Routine COMPREHENSIVE METABOLIC PANEL Routine BRONCHOSCOPY Routine CYTOLOGY GENERIC Routine PATHOLOGY Routine CYTOLOGY GENERIC Routine CULTURE, FUNGUS Routine CULTURE RESPIRATORY W/ GRAM STAIN TIMED SMEAR,FLUOR STAIN,ACID FAST Routine TB/AFB CULTURE,NON BLOOD SPEC Routine CULTURE, QUANTITATIVE W/ GRAM STAIN TIMED VIRUS ID INOC TEST OBSERV Routine VIRUS ID INOC TEST OBSERV Routine CULTURE VIRAL RESPIRATORY RAPID Routine VANCOMYCIN TIMED US ABD LIMITED Today SMEAR,FLUOR STAIN,ACID FAST Routine VANCOMYCIN TIMED BASIC METABOLIC PANEL Routine CBC W/DIFF AUTOMATED Routine XR CHEST PORTABLE JAC (with Routine occurrences), Status: Canceled CULTURE, BACTERIA, NOT URINE, STOO Routine CULTURE, ANAEROBIC Routine PATHOLOGY Routine IR MIDLINE PLACEMENT GREATER [address] GD CHEST TUBE INSERT RT Today CBC W/DIFF AUTOMATED Routine BMP WITHOUT GLUCOSE Routine PROCALCITONIN Routine HISTOPLASMA ANTIBODY PANEL Routine BLASTOMYCES AB PANEL CF ID Routine HISTOPLASMA CAPSUL AG, EIA Routine HAPTOGLOBIN, QUANT Routine BLOOD SMEAR INTERPRETATION BY MD Routine XR CHEST PORTABLE JAC COMPREHENSIVE METABOLIC PANEL Routine LDH, LACTATE DEHYDROGENASE Routine C-REACTIVE PROTEIN Routine SED RATE, ERYTHROCYTE (ESR) Routine CBC W/DIFF AUTOMATED STAT ARTERIAL BLOOD GAS STAT USE ECHOCARDIOGRAM Today CTA CHEST+ABD+PEL STAT HEMOGLOBIN AND HEMATOCRIT Routine (with TIMED occurrences), Status: Canceled USV VAST TEAM MIDLINE INSERT >5YR STAT LDH, LACTATE DEHYDROGENASE Routine BLOOD SMEAR INTERPRETATION BY Routine HEMOGLOBIN AND HEMATOCRIT STAT HIV 1 ANTIGEN(S), WITH HIV-1 AND HIV-[address], AUTO Routine LDH BODY FLUID NCLD BODY FLUID CELL COUNT W DIFF NCLD PROTEIN TOTAL FLUID NCLD CYTOLOGY GENERIC Routine M. PNEUMONIAE ANTIBODIES Routine AG DETECT NOS EIA MULT STEP NCLD STREP PNEUMO AG URINE NCLD CULTURE, FUNGUS Routine PROTHROMBIN TIME, VENOUS Routine TYPE AND SCREEN STAT CBC W/DIFF AUTOMATED STAT COMPREHENSIVE METABOLIC PANEL STAT CULTURE RESPIRATORY W/ GRAM STAIN NCLD CULTURE, BACTERIA, BLOOD (BLOOD CULTURE X2) Routine CULTURE, BACTERIA, BLOOD (BLOOD CULTURE X2) Routine BRONCHOSCOPY Imaging: CT GD CHEST TUBE INSERT RT Result Date: 07/27/2022 PROCEDURE: CT-guided right thoracostomy tube placement Indication: Necrotizing pneumonia with loculated hydropneumothorax Physicians: Raul Osuna M.D. (attending); Rodney Nolasco M.D. (resident)Following informed consent, including discussion of procedural risks, the patient was place in the left lateral decubitus position on the CT table and Cadott protocol was observed to verify correct patient, site, and procedure to be performed. Preliminary CT images were obtained through the region of interest. A safe anterior intercostal path of approach to the loculated right hydropneumothorax was chosen . Suitable skin site was marked. The site was prepped and draped in sterile fashion using maximum sterile barrier techniques. Local anesthesia was achieved using buffered 1% lidocaine, and a small dermatotomy was created. Under intermittent CT guidance, a one-step sheath needle was placed into the pleural collection with return of minimal venegas-brown fluid. Position was also confirmed by CT. The tract was dilated to 12 German. During dilation, there was temporary retraction of the wire resulting in slight kinking and difficulty advancing the tube. Access was again regained using theone-step sheath needle, followed again by CT confirmation of position, wire placement, and tract dilation. A 12-German pigtail drainage catheter with the locking stitch removed was advanced into the right pleural space. Position was confirmed by CT. Aspiration yielded approximately 20 mL 10 cloudy fluid as well as gas. External portion of the tube was secured with an interrupted 2-0 Ethilon suture and stay fix device. The tube was connected to a Pleur-evac system. 2 mg TPA in 20 mL sterile saline were demonstrated through the tube into the pleural space, and the stopcock was then placed in a closed position to allow a 4 hour TPA 12 time. A sterile dressing was applied. There were no immediate complications. Medications: IV analgesia utilizing 50 mcg fentanyl EBL: <10 mL A dose loweringtechnique was used for this procedure, which may include, but is not limited to, dose reduction technique, automated exposure control, the use of iterative reconstruction, and ALARA (As Low As Reasonably Achievable) / Image Gently techniques. IMPRESSION: Successful CT-guided right thoracostomy tube placement as described. The stopcock will initially be left in the closed position for fibrinolytic 4 hour dwell time. The tube will then be placed to low wall suction. Output and serial radiographs will be monitored to determine further management. Ordered By: FLORENCIO AMAYA Interpreted By: Raul Osuna MD, 07/27/2022 12:05 PM CTA CHEST+ABD+PEL Result Date: 07/26/2022 EXAMINATION: 1. CTA Chest with Intravenous Contrast, Axial Imaging with 2-D Coronal and Sagittal Reconstructions as well as 3D MIP Coronal and Sagittal Reconstructions. 2. CT Abdomen and Pelvis with intravenous contrast, axial images with 2D coronal and sagittal reconstruction 100 mL Isovue-370 was administered intravenously at the onset of the exams, with the exams performed consecutively following contrast administration. INDICATION: Bleeding, uncertain source, drop of hemoglobin from 10.2-7.0 in the last 12 hours, suspect pulmonary source, pulmonary emboli versus GI bleed. Shortness of breath. COMPARISON: CT lumbar spine without contrast 08/22/2021. PA and lateral chest x-ray 08/17/2021. CTA CHEST FINDINGS: No evidence of pulmonary emboli in the main pulmonary artery or the segmental branches with limited evaluation of the subsegmental branches related to timing of imaging with respect to phase of contrast. Main pulmonary artery is normal in size. Aorta is age-appropriate without aneurysm. Mild atherosclerotic calcifications in the aortic arch and descending thoracic aorta. Heartsize is normal. Suspect a loculated pleural effusion abutting the right heart border with a loculated pericardial effusion less likely but suggest correlation with echocardiogram for further evaluation. Tiny pericardial effusion anterior to the heart. Additional partially loculated pleural effusion posterolaterally and posterior medially in the right mid to lower chest. There may be very tiny left pleural effusion. There is a loculated pneumothorax versus air-fluid level from an empyema with possibly a bronchopleural fistula or abscess in the posterior medial right lower chest. Mild atelectasis and less likely infiltrate posteriorly in the left lower lobe. Pulmonary edema versus infiltratesin the left upper lobe and lingula. CT ABDOMEN AND PELVIS FINDINGS: Multiple hypodense lesions in the spleen with the largest measuring 1.[address] density less than 20 Hounsfield units. Accessorysplenule medial to the spleen below the splenic hilum. Remaining spleen is within normal limits. Slight surface nodularity and lobulation of the liver suggesting mild cirrhosis of the liver in the appropriate clinical setting with the liver otherwise unremarkable. Gallbladder is fluid distended with mild hyperdensity near the neck of the gallbladder which may represent small stones, dense sludge,or less likely polypoid mass. Dilated common duct measuring up to 1.5 cm in maximal diameter with no obvious common duct stone or mass. No significant intrahepatic biliary dilatation. Pancreas, bilateral adrenals, and bilateral kidneys appear normal. Bladder is normal. Prostate is normal in size. Small to moderate-sized retrocardiac hiatal hernia. Moderate to heavy stool in the right colon and mild stool burden scattered in the transverse and left colon. The hepatic flexure of the colon extendsbetween the diaphragm and the liver; please correlate clinically for Chilaiditi's syndrome. No bowel obstruction. Appendix is not well-visualized, but no findings of appendicitis are seen. No bowel obstruction. No ascites or adenopathy Sclerotic calcifications in the abdominal aorta and its distal branches without aneurysm. Reversal of lumbar lordosis with chronic compression deformity of anterior L2 vertebral body with posterior fusion hardware at L3-4. Please refer to the CT lumbar spine examof 08/22/2021 for the other lumbar spine findings. No acute osseous abnormality. IMPRESSION: 1. Air-fluid level within loculated fluid collection in the right posterior pleural cavity related to loculated hydropneumothorax, empyema or abscess versus bronchopleural fistula. Pleasecorrelate clinically. 2. Loculated pleural fluid in the posterior medial and posterolateral aspect of the right lower chest. Very small left pleural effusion. 3. Loculated pleural effusion adjacent to the right heart border or less likely loculated pericardial effusion. 4. Patchy areas of atelectasis versus infiltrate bilaterally in the lungs, greatest in the lower lobes and in the left upper lobe as noted above. Please correlate clinically for atypical pneumonia. 5. At least 3 hypodense lesions in the spleen with the largest 1.8 cm. Recommend correlation with ultrasound of the spleen for further evaluation. 6. Slight surface nodularity of the liver; please correlate clinically for possiblecirrhosis of the liver. 7. Please see the CT lumbar spine exam of 08/22/2021 regarding postoperative and other chronic findings involving the lumbar spine with chronic compression deformity of anterior L3 vertebral body. 8. Increased density in the gallbladder concerning for gallstones. Dilated common duct measuring up to 1.5 cm. Recommend right upper quadrant ultrasound exam for further evaluation. 9. Small hiatal hernia. 10. Please see above report for the other findings. This CT exam was performed using one or more of the following dose reduction techniques: automated exposure control, adjustment of the mA and/or kV according to patient size, and/or use of iterative reconstruction's technique. Referred By: PROVIDER NON-STAFF Electronically Signed By: Karine Sher MD on 21:23 AM Interpreted By: Karine Sher MD, 07/26/2022 12:56 AM US ABD LIMITED Result Date: 07/29/2022 EXAM: Ultrasound abdomen limited spleen. Multiple transabdominal sonographic images of the spleen in the left upper quadrant of the abdomen were obtained using rai-scale and color flow imaging. CLINICAL INDICATION: Splenic lesions seen on CT exam. COMPARISON: CTA chest, abdomen and pelvis with contrast 07/26/2022. FINDINGS: Ultrasound of the spleen demonstrates splenomegaly with the spleen measuring 13.4 x 6.2 x 4.9 cm. There are 3 anechoic cyst seen in the spleen with the largest 2.1 cm in the uterus measuring 1.1 and 1.3 cm corresponding to the hypodense lesion seen on the CT exam. The smallest cyst demonstrates an internal septation but appears benign. No internal vascularity is seen within the splenic cysts. No suspicious splenic mass. Partially included left pleural effusion. The left kidney was not imaged and is not evaluated on this exam. IMPRESSION: 1. 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 The smallest of the 3 cyst demonstrates thin internal septation but appears benign. No follow-up imaging is recommended. 2. Splenomegaly.Referred By: PROVIDER NON-STAFF Interpreted By: Karine Sher MD, 07/29/2022 6:03 AM USE ECHOCARDIOGRAM Result Date: 07/28/2022 Echocardiography Report Pat.Name: RAY PHILLIPS.ID: [id number] .Date: 07/27/2022 : [id number] NON-STAFF PROVIDER EWDPROV EWDPROV Exam Time: 12:44:00 PM Study Type:ECHO WITH CARDIAC DOPPLER COMP Height: 165 cm Weight: 68 kg BSA: 1.75 m2 Age: 9 1955,67Y Sex: M BP: 138/68 HR: 70 bpm Sonogrphr: Avery Marie [facility] Pat. Stat.:Inpatient Room: 742 CPT - 4: 94852 Reason for Study:Pericardial effusion Procedures: 2D, M-mode, Doppler, Color Flow, Portable, Strain Imaging ++++++++++++++++++++++++++++++++++++ SUMMARY: ++++++++++++++++++++++++++++++++++++ The left ventricular size is normal. The calculated ejection fraction is 61%. Wall motion appears normal in all segments. The right ventricle is normal in size and function. No evidence of pericardial effusion. Aortic root is mildly dilated. Ascending aorta is mildly dilated. Inferior vena cava shows >50% collapse with respiration consistent with normal right atrial pressure. No significant valvular heart disease. ++++++++++ ++++++++++++++++++++++++++ FINDINGS: ++++++++++++++++++++++++++++++++++++ LV: The left ventricular size is normal. The left ventricular systolic function is normal. The calculated ejection fraction is 61%. Mild concentric left ventricular hypertrophy. The septal E/e' is indeterminate at 8-15. The lateral E/e' is normal at <8. The average E/e' is indeterminate at 9-12 and EF is > or equal to50. Left ventricular diastolic function is abnormal. Left ventricular filling pressure is indeterminate. The LV strain is -17.3%. (Normal ranges are - 18% to -20%) WM: Wall motion appears normal in all segments. LVOT: The left ventricular outflow tract size is normal. RV: The right ventricular sizeis normal. Right ventricular systolic function is normal. TAPSE = 23mm (<16 mm indicates systolic RV dysfunction). LA: The left atrial volume is normal ( less than 34 ml/M2). RA: Right atrial sizeis normal. ANGELA: No evidence of pericardial effusion. AO: Aortic root is mildly dilated. Ascending aorta is mildly dilated. The aortic root measures 4.1 cm. The sinotubular junction measures 2.7cm. The proximal ascending aorta measures 3.7cm. PA: Estimated right atrial pressure of 3 mmHg. Unable toreliably quantitate pulmonary systolic pressure. SVn: Inferior vena cava is normal. Inferior vena cava shows >50% collapse with respiration consistent with normal right atrial pressure. AV: The aortic valve is trileaflet. No evidence of aortic valve stenosis. Trace aortic regurgitation. Dimensionless index of 0.8. MV: Trace mitral regurgitation. No evidence of mitral stenosis. The mean gradient across the mitral valve is 2mmHg at a heart rate of 62bpm. PV: The pulmonic valve is normal There is trace pulmonic regurgitation TV: The tricuspid valve appears structurally normal. There is trace tricuspid regurgitation. ++++++++++++++++++++++++++++++++++++ MEASUREMENTS: ++++++++++++++++++++++++++++++++++++ DOPPLER LVOT LVOTpkPG 5 mmHg LVOTmnPG 2 mmHg LVOTpkVel 109 cm/s (70-110) LVOT SV 81 mlLVOT TVI 21.4 cm LVOT CO 85 ml/s AV Forward Flow AV TVI 26.3 cm AV pkPG 6 mmHg AV pkVel 126 cm/s (100- 170) Area (TVI) 3.09 cm2 (3-5) AV mnVel 85.9 cm/s Area (Aravind) 3.29 cm2 (3-5) AV mnPG 3 mmHg MV Forward Flow MV DeTm 272 msec MV pkPG 5 mmHg MVA P1/2t 2.72 cm2 (4-6)* MV E/A 0.7 MV P1/2t 81 msec (30-60)+* MV pkE 68.4 cm/s (60-130) MV mnPG 2 mmHg MV pkA 92.6 cm/s Lat E' Lat e 9.9 cm/s Lat E/E' Lat E/e 6.9 Med E' Med e 7.07 cm/s Med E/E' Med E/e 9.7 Aortic Valve Aortic Valve Ar 1.77 Aortic Valve Ve 0.87 AV DI Value 0.8 STEPHANY (VTI) Index Value 1.77 LV Mass 2D Value 229 g LV Mass [id number] Value 131 g/m2 Right Ventricle Right Ventricle 14.3 cm/s 2D Left Ventricle LVIDd 5.05 cm (3.6-5.2) LV EF(Bi-Plane) 60.7 % (63-77)* LVIDs 3.5 cm (2.3-3.9) LVPW LVPWd 1.16 cm Ventricular Septum IVSd 1.18 cm AortaAo Rtd 4.1 cm (zsc 4.7)* Ao Asc 3.7 cm (zsc 4.9)* LVOT LVOT 2.2 cm Ratios IVS Aortic Sinotubular Junction Diameter 2.72 cm LA Biplane LAVol I BP 31.9 ml/m2 MMODE TA Tricuspid Annul 2.26 cm <Electronic Signature> 07/28/2022 06:32 AM Olivia Giles M.D. XR CHEST PA OR AP 1V Result Date: 08/08/2022 Date: 08/08/2022 5:34 AM Exam: XR CHEST PA OR AP 1V Comparison: Chest radiography dated 08/07/2022, 08/06/2022. Technique: Single view chest. History: Chest tube. Respiratory failure. Findings: The right chest tube is no longer visualized and presumably removed. There is a stable left midline catheter. The cardiac silhouette is within normal limits for portable technique. The pulmonary vascularity is within normal limits. There is mild atelectasis in the lung bases with slight interval improvement. There are scant effusions. There is no pneumothorax. There is calcified disease in the thoracic aorta. Impression: 1. Lines and tubes as described. 2. Persistent, but improving atelectasis in the lung bases. Scant effusions. Referred By: PROVIDER NON-STAFF Interpreted By: Antonio Lockett MD, 08/08/2022 6:12 AM XR CHEST PA OR AP 1V Result Date: 08/07/2022 EXAMINATION: XR Portable CXR, 1 View INDICATION: Chest tube, respiratory failure, history of thoracoscopy (VATS) with right decortication. COMPARISON: 08/06/2022. FINDINGS: The cardiomediastinal silhouette is within normal limits. There may be a small retrocardiac hiatal hernia. Atherosclerotic calcifications in the aortic arch. Decrease in right pleural effusion with small residual. Stable tiny left pleural effusion. Persistent infiltrative opacities bilateral lower lobes consistent with atypical pneumonia. The upper lungs are clear. Stable calcified granulomas in the chest. No pneumothorax. Chronic spondylosis in the thoracic spine. No acute osseous abnormality. IMPRESSION: 1. Persistent bilateral pneumonia with persistent infiltrates in the lower lobes with mild bibasilar pleural effusions, again right larger than left. 2. Suspect a small retrocardiac hiatal hernia. Referred By: PROVIDER NON-STAFF Interpreted By: Karine Sher MD, 08/07/2022 6:38 AM XR CHEST PA OR AP 1V Result Date: 08/06/2022 Examination: XR CHEST PA OR AP 1V Exam time: 08/06/2022 5:25 AM Indication: Chest tube. Comparison: 08/05/2022 and 08/04/2022 Technique: Portable AP view of the chest. Findings: The cardiac mediastinal silhouette and pulmonary vasculature are stable. Stable right-sided chest tube. Stable left-sided PICC line with tip near the axillary region. Right pleural effusion with associated atelectasis. Silhouetting the left hemidiaphragm, which is nonspecific and could also represent pleural effusion and atelectasis. Superimposed pneumonia is not excluded. Partially visualized right lower rib fractures. IMPRESSION: Stable chest. Referred By: PROVIDER NON-STAFF Interpreted By: Wali Gary MD, 08/06/2022 6:29 AM XR CHEST PA OR AP 1V Result Date: 08/05/2022 Examination: XR CHEST PA OR AP 1V, 08/05/2022 7:35 AM. Technique: Upright AP portable radiograph of the chest Clinical history: Respiratory failure, chest tube Comparison: Chest radiographs 08/04/2022,08/03/2022 Findings: Right chest tube with tip towards the medial aspect of the right hemithorax. Multiple leads overlying the chest. Left peripherally inserted central catheter with its tip near the left axillary region. Mild cardiomegaly. Arteriosclerotic calcification of the thoracic aorta. Smallright pleural effusion. Trace left pleural effusion. Prominence the pulmonary vascular pattern. No definite pneumothorax. IMPRESSION: Unchanged appearance of the chest when compared with the radiograph exam from yesterday. Ordered By: EDVIN POLLACK Interpreted By: Antonio Hill MD, 08/05/2022 7:35 AM XR CHEST PA OR AP 1V Result Date: 08/04/2022 Examination: Chest Radiograph, 1 view Exam Date/Time: 08/04/2022 5:25 AM Reason For Exam: chest tube Respiratory failure, chest tube Comparison: 08/03/2022 chest radiograph Technique: Single AP view of the chest. Findings: Right-sided chest tube in stable position. Heart size upper limits normal and stable. Worsening scattered interstitial infiltrates in the right perihilar and right lung base regions. Decreasing opacity at the left lung base. No pneumothorax. No new consolidations. Increasing tiny effusion on the right. ======== IMPRESSION: ======== 1. Increasing size of tiny right effusion with scattered right lower lung increasing infiltrates. Improving effusion on the left. Referred By: PROVIDER NON-STAFF Interpreted By: Mitch Carpenter MD, 08/04/2022 6:43 AM XR CHEST PA OR AP 1V Result Date: 08/03/2022 Examination: Chest Radiograph, 1 view Exam Date/Time: 08/03/2022 5:47 AM Reason For Exam: chest tube History respiratory failure, smoking history Comparison: 08/02/2022 chest radiograph Technique: Single AP view of the chest. Findings: Persistent opacity at the left lung base with obscuration of the cardiac apex shadow. Minimal infiltrates or atelectasis in the right lung basesimilar to prior study. Developing tiny right effusion since the prior exam. No pneumothorax. Heartsize normal. Atherosclerotic aorta. Pulmonary vasculature stable. ======== IMPRESSION: ======== Developing tiny right pleural effusion otherwise stable interval appearance ofinfiltrates or atelectasis in the lung bases with probable left effusion. Referred By: PROVIDER NON-STAFF Interpreted By: Mitch Carpenter MD, 08/03/2022 9:15 AM XR CHEST PORTABLE Result Date: 08/02/2022 Examination: X-ray chest, 1 view Exam time: 08/02/2022 at 0958 hours Clinical history: VATS. Comparison: 07/31/2022 Technique: Single frontal upright view of the chest obtained. FINDINGS: Interval removal of pleural catheter. However, different tube opacity projecting over right hemithorax. Left retrocardiac atelectasis/consolidation. Bibasilar reticular/ground glass opacities. Pleural effusion. No pneumothorax. Cardiomediastinal silhouette unchanged. IMPRESSION: 1. Unchanged bibasilar opacities. Ordered By: EDVIN POLLACK Interpreted By: Atilio Read MD, 08/02/2022 10:55 AM XR CHEST PORTABLE Result Date: 07/31/2022 EXAM DESCRIPTION: Chest 1 view EXAM TIME : 07/31/2022 5:58 AM INDICATION: Follow-up right chest tube. Necrotizing pneumonia. COMPARISON FILM : 07/30/2022 TECHNIQUE: Chest- 1 - view, 1 - images FINDINGS: Upright AP film obtained which is rotated. Heart size unchanged. Right-sided pigtail chest tube again seen overlying the right lower lung. There is persistent pleural-based opacity in the lateral right lower chest likely representing some residual loculated effusion. Increased left basilar opacity likely due to atelectasis with possible small effusion. In addition there is some hazy groundglass changes noted overlying the left midlung. No pneumothorax. No acute bony abnormality. IMPRESSION: 1. Right-sided chest remains in place. Persistent pleural-based opacity in the lateral right lower chest likely representing some residual loculated effusion. 2. Increased left basilar opacity likely due to increased atelectasis with possible small effusion. In addition there is some increased groundglass opacity overlying the left midlung. Ordered By: RODNEY NOLASCO Interpreted By: Jin Saravia MD, 07/31/2022 9:13 AM XR CHEST PORTABLE Result Date: 07/30/2022 Examination: XR CHEST PORTABLE Exam time: 07/30/2022 5:25 AM Clinical history: Loculated right pleural effusion drainage Comparison: 07/28/2022 Technique: Portable AP chest Findings: Percutaneous drainage pigtail catheter seen projecting over the right lung base unchanged in position. Cardiac silhouette remains slightly enlarged similar to previous study. Pulmonary vasculature within normal limits. There is no significant residual right pleural effusion. Interval decrease in small left pleural effusion and left basilar consolidation. Mid and upper lung henning are clear. Benign calcified granuloma right midlung. IMPRESSION: 1) Interval decrease in small left pleural effusion and left basilar consolidation. No other significant change. Ordered By: RODNEY NOLASCO Interpreted By: Nigel Peña MD, 07/30/2022 8:33 AM XR CHEST PORTABLE Result Date: 07/28/2022 EXAMINATION: XR CHEST PORTABLE HISTORY:chest tube COMPARISON: Chest x-ray 07/27/2022, 07/26/2022, CTA chest 07/26/2022 TECHNIQUE: Portable frontal upright view of the chest. FINDINGS: There is a right basilar pigtail catheter. No pneumothorax. Hazy opacity at the lateral right lower lung likely related to loculated pleural effusion similar to prior. Small layering left pleural effusion with adjacent left basilar opacity may be slightly increased from prior. Subtle hazy opacity left mid and upper lung not significantly changed. The cardiomediastinal silhouette and pulmonary vasculature are within normal limits. Aortic calcification is seen. There are couple calcified granulomas. IMPRESSION: 1. Right basilar pigtail catheter remains in place. Unchanged hazy opacity at the lateral lower right lung zone likely related to loculated pleural effusion. 2. Small layering left pleural effusion with adjacent atelectasis or airspace disease at the left lung base may be slightly increased from most recent study. Subtle hazy opacities in the left mid and upper lung not significantly changed, could also relate to atelectasis or infiltrate. Referred By: PROVIDER NON-STAFF Interpreted By: Harjinder Cobb MD, 07/28/2022 1:18 AM XR CHEST PORTABLE Result Date: 07/27/2022 EXAMINATION: XR CHEST PORTABLE HISTORY: Chest tube assessment. COMPARISON: Chest x-ray 07/26/2022. TECHNIQUE: Portable AP view chest. FINDINGS: There are bilateral pulmonary opacities. Probable smallbilateral pleural effusions. There is a right-sided pigtail chest tube with the distal tip projecting over the medial right lung base. No mediastinal shift. Stable cardiomegaly. There are increased interstitial markings bilaterally. There is atherosclerotic calcification of the aorta. IMPRESSION: 1. Right-sided pigtail chest tube. 2. Bilateral pulmonary opacities. 3. Cardiomegaly. Pulmonary vascular congestion. Ordered By: RODNEY NOLASCO Interpreted By: Can Klein DO, 07/27/2022 4:42 PM XR CHEST PORTABLE Result Date: 07/26/2022 Procedure(s): XR CHEST PORTABLE Date of service: 07/26/2022 6:51 AM Provided clinical information: 67 years, Male, f/up right sided effusion Procedure and materials: AP portable Comparison studies:August 17, 2021 Observations: Patient's rotated in examination. Cardiac silhouette is within normal limits. Right lateral lung opacification is present which is due to loculated effusion seen on chest CT of July 26 12:21 AM.. Right lower lung opacifications are present due to atelectasis or infiltrate. Left lung opacification due to atelectasis or infiltrate and small left effusion. IMPRESSION: Loculated effusion on the right. Bilateral pulmonary opacifications due to atelectasis or infiltrate greatest in the right lower lung and throughout the left lung. Left effusion. ReferredBy: PROVIDER NON-STAFF Interpreted By: Rudy Montaño MD, 07/26/2022 7:[address] CHEST WO CON Result Date: 08/04/2022 EXAMINATION: CT CHEST - NON CONTRAST INDICATION: chest tube for empyema, loculated r fluid collections, increased fluid on cxr today COMPARISON: CT chest 07/31/2022, 07/26/2022. Correlation with abdominal ultrasound 09/27/2021. TECHNIQUE: IV contrast: None Technical comments: Standard helical technique. Multiplanar reconstructions were obtained. Dose reduction: A dose lowering technique was used for this procedure, which may include, but is not limited to, dose reduction techniques, automated exposure control, the use of iterative reconstruction, and ALARA (As Low As Reasonably Achievable) / Image Gently techniques. FINDINGS: Evaluation of mediastinal and hilar structures limited due to lackof IV contrast. MEDIASTINUM Support tubes / lines / post surgical changes: A right-sided chest tubeis present with tip located within the posteromedial right hemithorax. Debris and/or fluid is present within the distal tubing. Base of neck/thyroid: Negative. Heart: Cardiomegaly. No pericardial effu jalyn. Aortic valvular calcifications are present. Lymph nodes: There are multiple enlarged, well-rounded mediastinal lymph nodes. No axillary adenopathy. Esophagus: Large hiatal hernia with refluxed gastric contents VASCULATURE Thoracic aorta is normal in caliber. The pulmonary arteries are normal in caliber. Scattered peripheral vascular atherosclerotic calcifications. LUNGS AND PLEURA There hasbeen interval decrease in size of the aerated component of the previously noted right hydropneumothorax along the surface of the right lower lobe. Fluid component appears minimally enlarged with compressive atelectasis although overall effusion is decreased in size. The loculated component of the effusion along the margin of the right upper lobe appears relatively similar in size and imaging appearance accounting for differences in technique measuring 2.2 x 5.9 cm in axial dimensions and 4.4 cmcraniocaudal. A new somewhat complex appearing fluid collection is present along the dependent margin of the left lower lobe measuring 1.7 x 5.6 x 2.4 cm (series 2, image 71). A more simple, small tomoderate sized pleural effusion is present inferior to this with compressive atelectasis. No pneumothorax. New hazy airspace opacities are present within the inferior left upper lobe and left lower lobe which may represent compressive atelectasis or pulmonary edema although pneumonia is not excluded. Airway impaction is present within the left lower lobe. A confluent pulmonary opacity is present within the right lower lobe measuring 11 mm adjacent to the posterior lung with a linear appearance,not previously appreciated due to adjacent pulmonary opacities, favored to represent subsegmental atelectasis (series 3, image 96). Smooth interlobular septal thickening is present within the dependent portions of the lungs bilaterally consistent with fluid overload. Left greater than right apical pulmonary centrilobular emphysema. UPPER ABDOMEN The spleen is again mildly enlarged with hypoattenuating lesions consistent with cysts as appreciated on previous ultrasound. A small splenule is present. Splenic arterial calcifications are present. Hyperdensities are present within the gallbladder lumen, likely representing gallstones. No definitively visualized, or wall thickening or pericholecystic inflammatory changes. No adrenal mass. BONES/SOFT TISSUES No destructive lesions identified. Fractures of the right minimally displaced 10th and nondisplaced 12th ribs are present. Incompletely visualized mild thoracolumbar facet hypertrophy. IMPRESSION: 1. Interval decrease in size of right hydropneumothorax with small residual right pleural effusion. Chest tube replacement. No pneumothorax. 2. Interval development of a probable new loculated pleural effusion along the right lower lung. Unchanged appearance of a right upper lobe loculated pleural effusion. Unchanged small to moderate left pleural effusion is also present. 3. Hazy pulmonary opacities within the left lung favored to represent atelectasis and/or pulmonary edema although pneumonia cannot be excluded. Left lower lobe airway impaction. 4. Cardiomegaly. Scattered smoothinterlobular septal thickening likely representing mild fluid overload. 5. Mild centrilobular emphys nat 6. Cholelithiasis without cholecystitis. 7. Fractures of the right 10th and 12th ribs. 8. Largehiatal hernia with refluxed gastric contents. The attending radiologist has reviewed the image(s) and agrees with the content of this report. Ordered By: PATEL KELSEY Interpreted By: Ulisses Arcos, 08/04/2022 3:[address] CHEST WO CON Result Date: 07/31/2022 EXAMINATION: CT Chest without contrast DATE: 07/31/2022 10:19 AM CLINICAL HISTORY: Chest tube. COMPARISON: Chest tube placement on 07/27/2022. CT chest on 07/26/2022. TECHNIQUE: Computed tomography of the chest was obtained without administration of intravenous contrast according to routine protocol. A dose lowering technique was used for this procedure, which may include, but is not limited to, dose reduction technique, automated exposure control, the use of iterative reconstruction, and ALARA(As Low As Reasonably Achievable) / Image Gently techniques. FINDINGS: Focal hydropneumothorax in the right posterior inferior pleura, grossly unchanged in size; with significantly decreased fluid component since last examination, with increased air component. Right pleural catheter in place. Smaller loculated fluid identified in the right pleura. Minimal nonloculated left pleural effusion. Emphysema. Calcified granuloma. Bibasilar atelectasis. Bibasilar linear atelectasis/scarring. Dependent gr oundglass opacities. Interlobular septal thickening. Lobular groundglass opacities in the right middle lobe and lingula, with overall decreasing groundglass opacities since last examination. No largepericardial effusion. Anemia. Coronary artery disease. Tortuous atherosclerotic thoracic aorta. Hiatal hernia. Catheter in the left axillary vein. A couple hypodense lesions in the spleen, possibly cysts. Small ascites. Old right rib fracture. No destructive bone lesions. IMPRESSION: 1. Focal loculated hydropneumothorax, right posterior inferior pleura, unchanged in size; with significantly decreased fluid component and increased air component. Right pleural catheter in place. Probable pneumothorax ex vacuo. Unlikely bronchopleural fistula. 2. Possible interstitial pulmonary edema. Small left pleural effusion. 3. Possible superimposed atypical viral infectious interstitial pneumonia, improved. 4. Emphysema. Ordered By: ARACELI HUDSON Interpreted By: Atilio Read MD, 07/31/2022 1:56 PM IR MIDLINE PLACEMENT GREATER 3YR Result Date: 07/27/2022 IR MIDLINE VENOUS CATHETER PLACEMENT Pre op diagnosis: . IV access required. Midline requested. Post Op Diagnosis: same Procedure: Midline venous catheter placement. Grafts/Implants: 4 German midlinevenous catheter Interventional Radiologist: Óscar Combine Inspector: ANSON Keating Anesthesia: Local - 1% Lidocaine Technique /Findings: Procedure and risks were discussed with patient including risks of bleeding, infection, thrombosis, possible injury to artery or nerve etc. Informed consent was obtained. The left arm was prepped and draped in sterile fashion. Maximal sterile barrier technique was utilized for the entire procedure including hand washing with conventional soap and water or an alcohol based hand rub as well as all elements of sterile ultrasound technique were utilized during this procedure. Timeout was performed. Ultrasound demonstrated the left basilic vein to be patent. Permanent ultrasound image was acquired. Following administration of 1% lidocaine local anesthetic and using real-time ultrasound guidance the basilic vein was easily accessed using micropuncture technique and wire was advanced centrally. Peel-away sheath was placed. A 4 German single lumen midline, 20 cm. This was advanced through the peel-away sheath and positioned under ultrasound guidance with tip at central basilic vein. Midline aspirated and flushed freely. Midline was secured in place with StatLock device and sterile dressing applied. No complications. Permanent ultrasound image was recorded. Radiation: Patient's radiation exposure - Reference Air Kerma (Ka,r) N/A mGy for this procedure. Total fluoroscopy time: N/A Multiple permanent images were sent to PACS Drains: none Complications: none Estimated Blood Loss: <5 ml Specimens removed: none Condition: stable Impression: Successful image guided left basilic vein inserted midline line venous catheter. Plan: 1. Left midline venous catheter okay for immediate use. 2. IR follow-up as needed. Thank you for allowing [facility] to assist in this patient's care! Ordered By: TRACY YO Interpreted By: Reji Cantrell MD, 07/27/2022 11:15 AM Disposition: HOME WITH HOME HEALTH @DOCUMENTATION OF [facility] ENCOUNTER FOR HOME HEALTH I attest that a Gixk-qj-Rvko encounter with Ray Phillips was made on 08/08/2022. The encounter with the patient was in whole, or in part, for the following medical condition, which is the primary reasonfor home health care. EMPYEMA AND PNEUMONIA WITH RESP FAILURE I certify that the following services are medically necessary home health services: Nursing, Physical Therapy and Occupational Therapy. My clinical findings support the need for the above service because decline in function, teaching of disease process, IV infusion, medication changes, new diagnosis and respiratory changes. Further, I certify that my clinical findings support that this patient ishomebound (i.e. absences from home require considerable and taxing effort, are for medical reasons,or for attendance at advent events; absences from home for nonmedical reasons are infrequent or are of relatively short duration). Homebound criteria are met because:activity intolerance cardiac reserve decreased, immunity depressed due to disease process restricts mobility and SOB syncope/dizziness restricts mobility and inability to leave home and taxing effort. It is my understanding that JOE TAM DO will be responsible to establish and sign the home health plan of care. Patient Instructions: Discharge Medication List as of 08/08/2022 10:32 AM START taking these medications Details cefTRIAXone 2 g in sodium chloride 0.9 % SOLN 50 mL Inject 2 g into the vein daily for 23 days., Starting Sat08/07/2022, Until Sat08/30/2022, Print ferrous sulfate, 65 mg elemental, 325 (65 FE) MG tablet Take 1 tablet (325 mg total) by mouth dailywith breakfast., Starting Sat08/08/2022, Eprescribe folic acid (FOLVITE) 1 MG tablet Take 1 tablet (1 mg total) by mouth daily., Starting Sat08/08/2022, Eprescribe ipratropium-albuterol (COMBIVENT RESPIMAT) 20-100 MCG/ACT inhaler Inhale 1 puff into the lungs every 6 (six) hours as needed for Wheezing. Please provide assembled., Starting Sat08/07/2022, Eprescribe metroNIDAZOLE (FLAGYL) 500 MG tablet Take 1 tablet (500 mg total) by mouth every 8 (eight) hours for 23 days., Starting Sat08/07/2022, Until Sat08/30/2022, Eprescribe CONTINUE these medications which have NOT CHANGED Details cyclobenzaprine (FLEXERIL) 10 MG tablet Take 10 mg by mouth 3 (three) times daily as needed for Muscle Spasms., Historical Med FLUoxetine (PROZAC) 10 MG tablet Take 20 mg by mouth daily., Historical Med gabapentin (NEURONTIN) 300 MG capsule Take 300 mg by mouth 2 (two) times daily., Historical Med HYDROcodone-acetaminophen (NORCO) 10-325 MG tablet Take 1 tablet by mouth every 6 (six) hours as needed for Pain., Historical Med LORazepam (ATIVAN) 1 MG tablet Take 1 mg by mouth 2 (two) times daily as needed for Anxiety., Historical Med morphine (MSIR) 15 MG tablet Take 30 mg by mouth every 8 (eight) hours as needed. Indications: Chronic Pain, Historical Med traZODone (DESYREL) 100 MG tablet Take 100 mg by mouth nightly at bedtime., Historical Med albuterol sulfate HFA 108 (90 Base) MCG/ACT inhaler INHALE 1 PUFF BY MOUTH EVERY 4 HOURS NEEDED FOR WHEEZING OR SHORTNESS OF BREATH, Historical Med benzonatate (TESSALON) 200 MG capsule TAKE 1 CAPSULE BY MOUTH TWICE A DAY NEEDED FOR COUGH, Historical Med fluticasone propionate (FLONASE) 50 MCG/ACT nasal spray INSTILL 1 SPRAY IN EACH NOSTRIL DAILY, Historical Med VASCEPA 1 g capsule Take 2 g by mouth 2 (two) times daily., Starting Sat08/11/2021, Historical Med STOP taking these medications FLUoxetine (PROZAC) 20 MG capsule Activity: PER REHAB RECOMMENDATIONS Diet: cardiac diet Wound Care: as directed D/C PICC LINE WHEN ANTIBIOTICS COMPLETED Patti Pineda MD [address] [facility] [address] Follow up in 1 week(s) Joe Tam DO [address] [facility] [address] Follow up in 1 week(s) Zoila Farias MD [address] [facility] [address] Follow up in 2 week(s) Ross Blackburn MD [address] [facility] [id number] Follow up in 1 month(s) Follow up labs neededWhile on IV antibiotics, obtain weekly labs - CBC and CMP, please fax to [facility] at [phone] Follow up instructions ABOVE Discharge time spent: 35 minutes Signed: LANRE WINTER MD 08/08/2022 2:16 PM APEUTIC SPECIALIST documented in this encounter Discharge Instructions * Discharge Instructions* Raquel Wetzel MD - 08/07/2022 7:16 AM THERAPEUTIC SPECIALIST ACTIVITY Your smaller incision will take about 2-3 weeks to heal. During that time, limit lifting to about 10 pounds. Avoid heavy tugging, twisting pushing or pulling activities. After about 3 weeks you may gradually increase lifting and resume other physical activities. You should do exercises with the arm on the side of your surgery. Throughout the day you should do arm circles, lifting your arm above your head and down to your side. Shoulder stiffness may occur ifyou avoid using your arm. You will not hurt your incision by using this arm. Continue your walking as this will help get you stronger. This should be divided into at least 4 walks a day. You may walk up and down stairs. Continue to do your breathing and coughing exercises; use your incentive spirometer 5-10 breaths every hour for the next two weeks. You may ride in the car. You can start driving after you have gained your strength back and are no longer taking pain medication. INCISION CARE You can remove the dressing from your chest 48 hours after the tube (drain) was removed. There may be a small amount of drainage from this incision you may need to put a Band-Aid over it for a few days. There may be some pink/yellow thin drainage from this incision that seems like a lot. It will stop in a few days. It may need a larger, thicker dressing. This incision will seal and the drainage will stop in a few days. You may take a shower 2 days after your tube (drain) removal. Wash your incisions with mild soap and water daily. Pat them dry after washing. Examine your incisions for any redness, swelling or drainage. If you see any of these changes in your incision or have a temperature greater than 101.5 degrees F, please call us. You may have strips over your incision these will fall off on their own. If they do not, remove them a week after you go home. CHEST SORENESS You may take Tylenol to relieve the soreness in the area of your incision for a few weeks after your surgery. You may have been given a prescription for pain medication when you were discharged, takethis following the instructions on the label and given to you by the nurse. You may also notice some pain or numbness under your nipple area. This is normal. Pain medication can be very constipating.You may need a stool softener or laxative. CALL FOR SHORTNESS OF BREATH THAT IS DIFFERENT FROM NORMAL OR SHARP CHEST PAIN UNRELIEVED BY PAIN MEDICATION. Go to the emergency room for all emergencies. If you have any questions or concerns about your surgery or your recovery, please call the Cardiothoracic Surgery at any time at [phone] APEUTIC SPECIALIST documented in this encounter Medications at Time of Discharge cyclobenzaprine (FLEXERIL) 10 MG tabletIndications: Muscle Spasm Take 10 mg by mouth 3 (three) times daily as needed for Muscle Spasms. Indications: Muscle Spasm ferrous sulfate, 65 mg elemental, 325 (65 FE) MG tabletIndications: Anemia Take 1 tablet (325 mg total) by mouth daily with breakfast. 30 tablet 1 08/08/2022 FLUoxetine (PROZAC) 10 MG tabletIndications: Depression Take 20 mg by mouth daily. Indications: Depression folic acid (FOLVITE) 1 MG tabletIndications: Anemia Take 1 tablet (1 mg total) by mouth daily. 30 tablet 1 08/08/2022 gabapentin (NEURONTIN) 300 MG capsuleIndications :Neuropathy Take 300 mg by mouth 2 (two) times daily. Indications: Nerve Disease HYDROcodone-acetam inophen (NORCO) 10-325 MG tablet Take 1 tablet by mouth every 6 (six) hours as needed for Pain. ipratropium-albute rol (COMBIVENT RESPIMAT) 20-100 MCG/ACT inhalerIndications :COPD, exacerbation Inhale 1 puff into the lungs every 6 (six) hours as needed for Wheezing. Please provide assembled. 4 g 1 08/07/2022 LORazepam (ATIVAN) 1 MG tabletIndications: Anxiety Take 1 mg by mouth 2 (two) times daily as needed for Anxiety. Indications: Feeling Anxious morphine (MSIR) 15 MG tabletIndications: Chronic Pain Take 30 mg by mouth every 8 (eight) hours as needed. Indications: Chronic Pain traZODone (DESYREL) 100 MG tabletIndications: Sleep disorders Take 100 mg by mouth nightly at bedtime. Indications: Sleep disorders albuterol sulfate HFA 108 (90 Base) MCG/ACT inhalerIndications :Wheezing 07/11/2022 benzonatate (TESSALON) 200 MG capsule TAKE 1 CAPSULE BY MOUTH TWICE A DAY NEEDED FOR COUGH 07/11/2022 fluticasone propionate (FLONASE) 50 MCG/ACT nasal sprayIndications:R hinitis 07/11/2022 VASCEPA 1 g capsule Take 2 g by mouth 2 (two) times daily. 08/11/2021 cefTRIAXone 2 g in sodium chloride 0.9 % SOLN 50 mLIndications:Anti biotic Therapy Inject 2 g into the vein daily for 23 days. 23 each 08/07/2022 2 metroNIDAZOLE (FLAGYL) 500 MG tabletIndications: Antibiotic Therapy Take 1 tablet (500 mg total) by mouth every 8 (eight) hours for 23 days. 69 tablet 08/07/2022 2 documented as of this encounter Progress Notes * Angela Dawkins RN - 08/08/2022 9:25 AM CSTSummary: D/C plans IDBR done with Dr Winter [facility] to discuss POC/D/C plans. See notes below. 08/08/22924 Interdisciplinary Group Conference Team Members Present Physician;Case/Care management Barriers to Discharge Barriers Other (Comment) Other (Comment)follow up D/C to home with [facility] and [facility] for IV supplies. APEUTIC SPECIALIST * Lanre Winter MD - 08/07/2022 2:04 PM CST Progress note CC:- f/u of empyema , resp failure, pneumonia pleural effusion SUBJECTIVE Patient seen and examined. Alert awake denies chest pain, sob on 2l o2 Chest tube out awaiting antibiotic teaching and set up OBJECTIVE Wt Readings from Last 3 Encounters: 07/28/22 67.5 kg (148 lb 12.8 oz) Temp: 98.2 ??F (36.8 ??C) BP Readings from Last 3 Encounters: 08/07/22 94/59 Pulse Readings from Last 3 Encounters: 08/07/22 73 Review of Systems Constitutional: Negative for chills, fever and weight loss. HENT: Negative for congestion and ear pain. Eyes: Negative for blurred vision and double vision. Respiratory: Negative for cough, hemoptysis, sputum production, shortness of breath and wheezing. Cardiovascular: Negative for chest pain, palpitations, orthopnea, leg swelling and PND. Gastrointestinal: Negative for abdominal pain, blood in stool, nausea and vomiting. Genitourinary: Negative for dysuria, flank pain and hematuria. Musculoskeletal: Negative for back pain, joint pain and neck pain. Skin: Negative for rash. Neurological: Negative for speech change, focal weakness and loss of consciousness. Endo/Heme/Allergies: Negative for polydipsia. Psychiatric/Behavioral: Negative for depression and suicidal ideas. The patient is not nervous/anxious. All other systems reviewed and are negative. PHYSICAL EXAMINATION: Physical Exam Vitals and nursing note reviewed. Constitutional: Appearance: He is ill-appearing. HENT: Head: Normocephalic. Eyes: General: No scleral icterus. Conjunctiva/sclera: Conjunctivae normal. Pupils: Pupils are equal, round, and reactive to light. Neck: Vascular: No JVD. Cardiovascular: Rate and Rhythm: Normal rate and regular rhythm. Pulses: Normal pulses. Heart sounds: No murmur heard. Pulmonary: Effort: Pulmonary effort is normal. No accessory muscle usage or respiratory distress. Breath sounds: Normal breath sounds. No wheezing. Abdominal: General: Bowel sounds are normal. There is no distension. Palpations: Abdomen is soft. There is no mass. Tenderness: There is no abdominal tenderness. There is no guarding or rebound. Musculoskeletal: General: Normal range of motion. Cervical back: Normal range of motion and neck supple. Skin: Findings: No erythema or rash. Neurological: Mental Status: He is alert and oriented to person, place, and time. Cranial Nerves: No cranial nerve deficit. Coordination: Coordination normal. Psychiatric: Mood and Affect: Mood and affect normal. LABS: Recent Labs 08/05/22 0211 08/06/22 0427 08/07/22 1012 WBC 6.6 5.1 -- HGB 7.0* 7.6* 7.7* HCT 22.0* 24.1* 23.7* MCV 101.4* 103.9* -- PLT 185 207 -- RBC 2.17* 2.32* -- Recent Labs 08/05/22 02108/06/22 0427 ALT 8* 8* AST 8* 9* CO2 27.9 27.3 CL 104 107 GLU 114* 87 K 3.4* 3.8 NA 136 140 BUN 11 8 No intake or output data in the 24 hours ending 08/07/22 1404 Microbiology Results (last 14 days) Procedure Component Value Units Date/Time CULTURE, ANAEROBIC [[id number]] Collected: 08/02/22837 Order Status: Completed Lab Status: Final result Updated: 08/07/22 0910 Specimen: TISSUE from OTHER (type in comments) Spec. Description TISSUE: RT DECORTICATION TISU Special Requests: NO SPECIAL REQUEST Culture Result: NO ANAEROBES ISOLATED CULTURE TB/AFB OTHER (TYPE IN COMMENTS) [[id number]] Collected: 08/02/22837 Order Status: Sent Lab Status: In process Updated: 08/02/22 1009 Specimen: TISSUE from OTHER (type in comments) CULTURE, FUNGUS [[id number]] Collected: 08/02/22837 Order Status: Sent Lab Status: In process Updated: 08/02/22 1010 Specimen: TISSUE from OTHER (type in comments) CULTURE, TISSUE W/GRAM STAIN [[id number]] Collected: 08/02/22837 Order Status: Completed Lab Status: Final result Updated: 08/07/22 1136 Specimen: TISSUE from OTHER (type in comments) Spec. Description TISSUE: RT DECORTICATION TISU Special Requests: NO SPECIAL REQUEST Gram Stain Result -- MODERATE NEUTROPHILS SEEN Gram Stain Result NO ORGANISMS SEEN Culture Result: NO GROWTH 5 DAYS SMEAR,FLUOR STAIN,ACID FAST [[id number]] Collected: 08/02/22 0838 Order Status: Completed Lab Status: Final result Updated: 08/05/221944 ACID FAST SMEAR RESULT SEE NOTE 08/05/2022 07:45 PM Comment: Test Result Flag Unit RefValue Acid Fast Smear For Mycobacterium SOURCE: LUNG, RIGHT, RT DECORTICATION TIS ACID FAST SMEAR FOR MYCOBACTERIUM FINAL Negative. Test Performed by: [place] [address] Counter Cutter: Brent Alcaraz M.D. Ph.D.; CLIA# [id number] CULTURE, FUNGUS [[id number]] Order Status: No result Lab Status: No result Specimen: BRONCHOALVEO LAV, RT LWR CULTURE TB/AFB OTHER (TYPE IN COMMENTS) [[id number]] Order Status: No result Lab Status: No result Specimen: BRONCHOALVEO LAV, RT LWR SMEAR,FLUOR STAIN,ACID FAST [[id number]] Order Status: No result Lab Status: No result Specimen: BRONCHOALVEO LAV, RT LWR CULTURE VIRAL RESPIRATORY RAPID [[id number]] Order Status: No result Lab Status: No result Specimen: BRONCHOALVEO LAV, RT LWR CULTURE RESPIRATORY W/ GRAM STAIN [[id number]] Order Status: No result Lab Status: No result Specimen: BRONCHIAL WASHING CULTURE, FUNGUS [[id number]] Order Status: No result Lab Status: No result Specimen: BRONCHIAL WASHING CULTURE TB/AFB OTHER (TYPE IN COMMENTS) [[id number]] Order Status: No result Lab Status: No result Specimen: BRONCHIAL WASHING SMEAR,FLUOR STAIN,ACID FAST [[id number]] Order Status: No result Lab Status: No result Specimen: BRONCHIAL WASHING CULTURE VIRAL RESPIRATORY RAPID [[id number]] Order Status: No result Lab Status: No result Specimen: BRONCHIAL WASHING CULTURE, QUANTITATIVE W/ GRAM STAIN [[id number]] Order Status: No result Lab Status: No result Specimen: BRONCHOALVEO LAV, RT LWR CULTURE, FUNGUS [[id number]] Collected: 07/30/22 1530 Order Status: No result Lab Status: In process Updated: 07/30/22 1701 CULTURE RESPIRATORY W/ GRAM STAIN [[id number]] Collected: 07/30/221529 Order Status: Completed Lab Status: Final result Updated: 08/03/22 1228 Specimen: SITE Spec. Description SITE: BRONCH WASH Special Requests: NO SPECIAL REQUEST Gram Stain Result -- MANY NEUTROPHILS SEEN Gram Stain Result NO ORGANISMS SEEN Culture Result: -- FEW TETE ALBICANS SMEAR,FLUOR STAIN,ACID FAST [[id number]] Collected: 07/30/221529 Order Status: Completed Lab Status: Final result Updated: 08/01/22 2318 ACID FAST SMEAR RESULT SEE NOTE 08/01/2022 11:18 PM Comment: Test Result Flag Unit RefValue Acid Fast Smear For Mycobacterium SOURCE: BRONCHIAL WASHING, BWASH/BAL MIX ACID FAST SMEAR FOR MYCOBACTERIUM FINAL Negative. Test Performed by: [place] [address] Counter Cutter: Brent Alcaraz M.D. Ph.D.; CLIA# [id number] CULTURE TB/AFB OTHER [[id number]] Collected: 07/30/221529 Order Status: No result Lab Status: In process Updated: 07/30/22 170 CULTURE, QUANTITATIVE W/ GRAM STAIN [[id number]] Collected: 07/30/221529 Order Status: Completed Lab Status: Final result Updated: 08/02/22 1457 Specimen: SITE Spec. Description SITE: BAL RLL Special Requests: NO SPECIAL REQUEST Gram Stain Result <10 NEUTROPHILS PER LPF Gram Stain Result <10 EPITHELIAL CELLS PER LPF Gram Stain Result -- RARE GRAM NEGATIVE RODS Culture Result: -- 500 CFU/ML YEAST , ID UPON REQUEST CULTURE, FUNGUS [[id number]] Collected: 07/30/221529 Order Status: Canceled Lab Status: No result SMEAR,FLUOR STAIN,ACID FAST [[id number]] Collected: 07/30/221529 Order Status: Canceled Lab Status: No result CULTURE TB/AFB OTHER [[id number]] Collected: 07/30/221529 Order Status: Canceled Lab Status: No result CULTURE CMV [[id number]] Collected: 07/30/221529 Order Status: Completed Lab Status: Final result Updated: 08/06/22 1738 CYTOMEGALOVIRUS CULTURE REPORT Comment: CMV Rapid Culture SOURCE : BAL RESULT Not Isolated Reference Range: Not Isolated Test Performed by [facility], [address] [place], [place] Adrián Balderas M.D., Ph.D., Director of Laboratories , CLIA [id number] SPECIMEN SOURCE BAL/BWASH MIX IN VTM 1 TO 1 RATIO, FRZ NEG 70 CULTURE HERPES [[id number]] Collected: 07/30/221529 Order Status: Completed Lab Status: Final result Updated: 08/03/22 1542 HERPES SIMPLEX VIRUS CULTURE REPORT Comment: Herpes Simplex Virus Culture SOURCE : BAL/BWASH MIX IN RESULT Not Isolated Reference Range: Not Isolated Test Performed by [facility], [address] [place], [place] Adrián Balderas M.D., Ph.D., Director of Laboratories , CLIA [id number] Specimen Type BAL/BWASH MIX IN VTM 1 TO 1 RATIO, FRZ NEG 70 CULTURE VIRAL RESPIRATORY RAPID [[id number]] Collected: 07/30/221529 Order Status: Completed Lab Status: Final result Updated: 08/05/22 1522 VIRAL RESP RAPID CULTURE W/RFX REPORT Comment: Respiratory Culture Screen SOURCE : BWASH/BAL MIX IN RESULT Negative for Influenza virus, types A and B, Parainfluenza viruses 1,2 # 3, Adenovirus, and Respiratory Syncytial virus. Reference range: Negative Rapid Respiratory Viruses Not indicated Test Performed by [facility], [address] [place], [place] Adrián Balderas M.D., Ph.D., Director of Laboratories , CLIA [id number] Specimen Type BWASH/BAL MIX IN VTM 1 TO 1 RATIO, FRZ NEG 70 CULTURE RESPIRATORY W/ GRAM STAIN [[id number]] Collected: 07/28/221424 Order Status: Completed Lab Status: Final result Updated: 07/31/22 0847 Specimen: SPUTUM, EXPECTORATED Spec. Description SPUTUM, EXPECTORATED Special Requests: NO SPECIAL REQUEST Gram Stain Result >25 NEUTROPHILS PER LPF Gram Stain Result <10 EPITHELIAL CELLS PER LPF Gram Stain Result -- RARE BUDDING YEAST CELLS Gram Stain Result -- RARE GRAM POSITIVE COCCI IN PAIRS Gram Stain Result -- RARE GRAM NEGATIVE RODS Culture Result: -- FEW ALPHA STREPTOCOCCUS Culture Result: -- MODERATE PRESUMPTIVE TETE ALBICANS CULTURE, FUNGUS [[id number]] Collected: 07/28/221424 Order Status: Sent Lab Status: In process Updated: 07/31/22 133 Specimen: SPUTUM, EXPECTORATED CULTURE TB/AFB OTHER (TYPE IN COMMENTS) [[id number]] Collected: 07/28/221424 Order Status: Canceled Lab Status: No result Specimen: SPUTUM, EXPECTORATED SMEAR,FLUOR STAIN,ACID FAST [[id number]] Collected: 07/28/221424 Order Status: No result Lab Status: In process Updated: 07/28/22 161 HISTOPLASMA ANTIGEN [[id number]] Collected: 07/28/221423 Order Status: Sent Lab Status: No result Specimen: BLOOD HISTOPLASMA ANTIGEN [[id number]] Collected: 07/28/221423 Order Status: Canceled Lab Status: No result Specimen: BLOOD GLUCOSE, BODY FLUID [[id number]] Order Status: Canceled Lab Status: No result Specimen: PLEURAL FLUID PH BODY FLUID [[id number]] Order Status: Canceled Lab Status: No result Specimen: PLEURAL FLUID CULTURE, BODY FLUID W/ GRAM STAIN [[id number]] Order Status: Canceled Lab Status: No result Specimen: PLEURAL FLUID CULTURE, ANAEROBIC [[id number]] Order Status: Canceled Lab Status: No result Specimen: PLEURAL FLUID CULTURE, FUNGUS [[id number]] Order Status: Canceled Lab Status: No result Specimen: PLEURAL FLUID LDH BODY FLUID [[id number]] Collected: 07/27/22 1030 Order Status: Completed Lab Status: Final result Updated: 07/27/22 152 Specimen: PLEURAL FLUID FLUID LDH >4,000 UNITS/L Comment: REFERENCE RANGE NOT ESTABLISHED FOR THIS BODY FLUID. SOURCE (FLUID) PLEURAL FLUID CELL COUNT W/ DIFF BODY FLUID [[id number]] Collected: 07/27/221029 Order Status: Completed Lab Status: Final result Updated: 07/27/22 1545 Specimen: PLEURAL FLUID SOURCE (FLUID) PLEURAL FLUID FL WBC 144.450 x10'3/uL Comment: REFERENCE RANGE NOT ESTABLISHED FL RBC 0.090 x10'6/uL Comment: REFERENCE RANGE NOT ESTABLISHED DIFFERENTIAL MANUAL DIFFERENTIAL PERFORMED ON CONCENTRATED CYTOSPIN CELLS COUNTED 100 No COUNTED SEGS (FLUID) 97 % LYMPHS (FLUID) 3 % PROTEIN TOTAL FLUID [[id number]] Collected: 07/27/221029 Order Status: Completed Lab Status: Final result Updated: 07/27/22 152 Specimen: PLEURAL FLUID PROTEIN (FLUID) 3.5 G/DL Comment: REFERENCE RANGE NOT ESTABLISHED FOR THIS BODY FLUID. SOURCE (FLUID) PLEURAL FLUID CULTURE, BODY FLUID W/ GRAM STAIN [[id number]] Collected: 07/27/221029 Order Status: Canceled Lab Status: No result Specimen: PLEURAL FLUID CULTURE, ANAEROBIC [[id number]] Collected: 07/27/221029 Order Status: Canceled Lab Status: No result Specimen: PLEURAL FLUID CULTURE, BODY FLUID W/ GRAM STAIN [[id number]] (Susceptibility) Collected: 07/27/221029 Order Status: Completed Lab Status: Final result Updated: 07/31/22 075 Specimen: PLEURAL FLUID Spec. Description PLEURAL FLUID: RT Special Requests: NO SPECIAL REQUEST Gram Stain Result -- MANY NEUTROPHILS SEEN Gram Stain Result NO ORGANISMS SEEN Culture Result: -- RARE STAPHYLOCOCCUS EPIDERMIDIS Susceptibility Staphylococcus epidermidis ARLEN (VITEK) CLINDAMYCIN Sensitive ERYTHROMYCIN Sensitive GENTAMICIN Sensitive OXACILLIN Sensitive PENICILLIN G Resistant RIFAMPIN Sensitive TETRACYCLINE Sensitive TRIMETH-SULFAMETH. Resistant VANCOMYCIN Sensitive CULTURE, ANAEROBIC [[id number]] (Susceptibility) Collected: 07/27/221029 Order Status: Completed Lab Status: Final result Updated: 08/01/22 0826 Specimen: SITE Spec. Description SITE: RT PLEURAL FLUID Special Requests: NO SPECIAL REQUEST Culture Result: -- FEW MICROAEROPHILIC STREPTOCOCCUS Susceptibility Microaerophilic streptococcus ARLEN (ETEST) CEFOTAXIME 0.023 Sensitive PENICILLIN G 0.008 Sensitive BLASTOMYCES AG MVISTA (TM), EIA [[id number]] Order Status: No result Lab Status: No result Specimen: BLOOD BLASTOMYCES AG MVISTA (TM), EIA [[id number]] Order Status: No result Lab Status: No result Specimen: URINE CORONAVIRUS (COVID 19) PCR - Asymptomatic patients, may be completed at physician discretion [[id number]] Collected: 07/25/222031 Order Status: Canceled Lab Status: No result Specimen: NASOPHARYNGEAL SWAB STREP PNEUMO AG URINE [[id number]] Collected: 07/25/222030 Order Status: Completed Lab Status: Final result Updated: 07/26/221425 Specimen: URINE, VOIDED S. PNEUMONIAE URINARY AG NEGATIVE Comment: PRESUMPTIVE NEGATIVE FOR PNEUMOCOCCAL PNEUMONIA, SUGGESTING NO CURRENT OR RECENT PNEUMOCOCCAL INFECTION. INFECTION DUE TO STREPTOCOCCUS PNEUMONIA CANNOT BE RULED OUT SINCE THE ANTIGEN PRESENT IN THE SAMPLE MAY BELOW THE DETECTION LIMIT OF THE TEST. Specimen Type URINE VOIDED MRSA PCR nares Screening [[id number]] Collected: 07/25/222030 Order Status: Canceled Lab Status: No result Specimen: NASAL CULTURE, BACTERIA, BLOOD [[id number]] Collected: 07/25/221416 Order Status: Completed Lab Status: Final result Updated: 07/30/222144 Specimen: BLOOD Spec. Description BLOOD Special Requests: NO SPECIAL REQUEST Culture Result: NO GROWTH 5 DAYS CULTURE, BACTERIA, BLOOD [[id number]] Collected: 07/25/221415 Order Status: Completed Lab Status: Final result Updated: 07/30/222144 Specimen: BLOOD Spec. Description BLOOD Special Requests: BLOOD-AEROBIC BOTTLE ONLY Culture Result: NO GROWTH 5 DAYS Radiology MEDICATIONS Scheduled medications ??? cefTRIAXone 2 g Intravenous Q24H ??? enoxaparin 40 mg Subcutaneous Nightly (enoxaparin) ??? FLUoxetine 20 mg Oral Daily ??? gabapentin 300 mg Oral BID ??? ipratropium-albuterol 1 puff Inhalation Q4H ??? lidocaine 1 patch Transdermal Q24H ??? metroNIDAZOLE 500 mg Oral 3 times per day ??? normal saline 3-10 mL Intravenous Q8H ??? polyethylene glycol 17 g Oral BID ??? traZODone 100 mg Oral Nightly at bedtime Infusion PRN acetaminophen, albuterol sulfate HFA, alteplase, calcium carbonate, HYDROcodone- acetaminophen, influenza virus vaccine (QUAD), lidocaine, LORazepam, morphine, normal saline, ondansetron, senna-docusate, sodium chloride ASSESSMENT /PLAN Ray Phillips is a 67-year-old male with the following history as recorded in EpicCare: Problem List Items Addressed This Visit None PLAN: Acute Hypoxic Respiratory Failure??-improved on 2 L Will need home O2 2; at d/c ?? Copd exacerbation improved on combivent o2 ??Necrotizing pneumonia of right lower lobe??with empyema?? 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 Small pericardial effusion on echo ?? Chronic anemia needing transfusion hh??lower monitor - may need transfusion again??hemoglobin is 7-likely some blood loss from recent surgery illness??type and screen ordered H&H stable overnight likely anemia of chronic disease ?? Chronic back pain Anxiety/depression History of tobacco abuse Chronic compression fracture of L3 Lumbar spondylosis History of back trauma ?dvtp resumed??lovenox ?? Hypotension borderline will give 500 cc fluid bolus Await improvement in bp, antibiotic set up LANRE WINTER MD 2:04 PM 08/07/2022 APEUTIC SPECIALIST * Angela Dawkins RN - 08/07/2022 10:15 AM CSTSummary: D/C plans IDBR done with Dr Winter [facility] to discuss POC/D/C plans. See notes below. [address] Winter about making pt Gen with tele status-Pt can downgrade to Gen with Tele status. Let Aissatou Borges RN 7th mosaic floor layer know this info. 1330 Cost of IV meds: $100.55 per week. Shirley Gaffney spoke with pt about this and pt is agreeable with cost. 1530 Pt/ and RN Kia thought he was going home today. I spoke with Marcelo Watson, meds cannot be delivered till Zulema 08/09 and [facility] plans to see pt Zulema. Let Dr Winter, pt/, pt's ALANNAH Adam know this info. 08/07/22 1015 Interdisciplinary Group Conference Team Members Present Case/Care management;Physician Barriers to Discharge Barriers Not Medically ready Not Medically ready follow up Continue IMC status. On IV antibiotics through 08/30/22. CM spoke with pt/ about [facility] and [facility] about D/C plans possibly for Sat08/08/22. They chose [facility] for [facility] agency. Ref sent/called to Shirley at [facility] and Doc jorge to [facility] about referral. APEUTIC SPECIALIST APEUTIC SPECIALIST APEUTIC SPECIALIST * Raquel Wetzel MD - 08/07/2022 7:17 AM CST Daily Progress Note Raquel Wetzel MD General Surgery Resident ID: Ray Phillips is a 67-year-old male : 1955 LOS: 13 ASSESSMENT/PLAN 67 year-old male with R parapneumonic effusion s/p R chest tube placement and TPA infusion by IR on07/27. S/p R VATS decortication on 08/02. - VSS, on 2L O2 - Chest tube removed 08/06 - CXR this morning with minimal residual effusion - OK to discharge from CT surgery standpoint Attending: Dr. Blackburn SUBJECTIVE: Denies chest pain or dyspnea. Medications: Current Facility-Administered Medications: ??? acetaminophen (TYLENOL) tablet 650 mg, 650 mg, Oral, Q4H PRN, Tracy Yo MD, 650 mg at 08/05/222101 ??? albuterol sulfate HFA 108 (90 Base) MCG/ACT inhaler 2 puff, 2 puff, Inhalation, Q4H PRN, Tracy Yo MD ??? alteplase (CATHFLO) injection, , , Code/Trauma/Sedation Med, Raul Osuna MD, 2 mg at 07/27/22 1034 ??? calcium carbonate (TUMS) chewable tablet 500 mg, 500 mg, Oral, Daily PRN, Lanre Winter MD, 500 mg at 08/04/22 1447 ??? cefTRIAXone (ROCEPHIN) 2 g in sodium chloride 0.9 % 50 mL IVPB, 2 g, Intravenous, Q24H, Flora Dale, JONELLE, Stopped at 08/06/22 1533 ??? enoxaparin (LOVENOX) 40 MG/0.4ML syringe 40 mg, 40 mg, Subcutaneous, Nightly (enoxaparin), Lanre Winter MD, 40 mg at 08/06/22 2135 ??? FLUoxetine (PROzac) capsule 20 mg, 20 mg, Oral, Daily, Tracy Yo MD, 20 mg at 08/06/22 1003 ??? gabapentin (NEURONTIN) capsule 300 mg, 300 mg, Oral, BID, Tracy Yo MD, 300 mg at 08/06/22 2136 ??? HYDROcodone-acetaminophen (NORCO) 10-325 MG tablet 1 tablet, 1 tablet, Oral, Q6H PRN, Tracy Yo MD, 1 tablet at 08/07/22 0333 ??? influenza virus vaccine (QUAD) injection 0.5 mL, 0.5 mL, Intramuscular, Once PRN, Florencio Amaya MD ??? ipratropium-albuterol (COMBIVENT RESPIMAT) 20-100 MCG/ACT inhaler 1 puff, 1 puff, Inhalation, Q4H, Lanre Winter MD, 1 puff at 08/07/22 0333 ??? lidocaine (XYLOCAINE) 1 % injection SOLN, , , Code/Trauma/Sedation Med, Raul Osuna MD, 8 mLat 07/27/22 1016 ??? lidocaine 4 % patch 1 patch, 1 patch, Transdermal, Q24H, Raquel Wetzel MD, 1 patch at 08/07/22 0547 ??? LORazepam (ATIVAN) tablet 1 mg, 1 mg, Oral, BID PRN, Tracy Yo MD, 1 mg at 08/07/22 0333 ??? metroNIDAZOLE (FLAGYL) tablet 500 mg, 500 mg, Oral, 3 times per day, Paulina Dale NP, 500 mg at 08/07/22 0547 ??? morphine (MSIR) tablet 30 mg, 30 mg, Oral, Q8H PRN, Tracy Yo MD, 30 mg at 08/06/222135 ??? normal saline 0.9 % flush 3-10 mL, 3-10 mL, Intravenous, Q8H, JOSEPH Whitehead, 5 mL at 08/06/22 1004 ??? normal saline 0.9 % flush 3-10 mL, 3-10 mL, Intravenous, PRN, JOSEPH Whitehead, 10 mL at 08/02/22 1833 ??? ondansetron (ZOFRAN) injection 4 mg, 4 mg, Intravenous, Q8H PRN, Tracy Yo MD ??? polyethylene glycol (GLYCOLAX) packet 17 g, 17 g, Oral, BID, JOSEPH Whitehead, 17 g at 08/06/227 ??? senna-docusate (SENOKOT-S) 8.6-50 MG tablet 1 tablet, 1 tablet, Oral, Nightly PRN, JOSEPH Whitehead, 1 tablet at 08/06/22 0543 ??? sodium chloride (OCEAN) 0.65 % nasal spray 1 spray, 1 spray, Each Nostril, PRN, Tracy Yo MD, 1 spray at 07/25/22 2305 ??? traZODone (DESYREL) tablet 100 mg, 100 mg, Oral, Nightly at bedtime, Tracy Yo MD, 100 mg at 08/06/222135 Scheduled Meds: ??? cefTRIAXone 2 g Intravenous Q24H ??? enoxaparin 40 mg Subcutaneous Nightly (enoxaparin) ??? FLUoxetine 20 mg Oral Daily ??? gabapentin 300 mg Oral BID ??? ipratropium-albuterol 1 puff Inhalation Q4H ??? lidocaine 1 patch Transdermal Q24H ??? metroNIDAZOLE 500 mg Oral 3 times per day ??? normal saline 3-10 mL Intravenous Q8H ??? polyethylene glycol 17 g Oral BID ??? traZODone 100 mg Oral Nightly at bedtime Continuous Infusions: PRN Meds: acetaminophen, albuterol sulfate HFA, alteplase, calcium carbonate, HYDROcodone-acetaminophen, influenza virus vaccine (QUAD), lidocaine, LORazepam, morphine, normal saline, ondansetron, senna-docusate, sodium chloride OBJECTIVE Vital signs in the last 24 hours: Vitals: 08/07/22 0455 BP: 106/59 Pulse: 73 Resp: 12 Temp: 98.7 ??F (37.1 ??C) SpO2: 99% Intake/Output last 3 shifts: I/O last 3 completed shifts: In: 480 [P.O.:480] Out: 1350 [Urine:1350] Intake/Output this shift: No intake/output data recorded. Today's Weight: Last Recorded Weight 11/04/17 1300 Weight: 2344 g (5 lb 2.7 oz) Yesterday's Weight: Wt Readings from Last 1 Encounters: 11/04/17 2344 g (5 lb 2.7 oz) Weight change in the last 24 hours: an appropriate measurement is not found Examination: General: NAD Lungs: easy respirations, symmetric chest rise. On 2L NC. Heart: regular rate and rhythm Neuro: AAOx3, no focal deficits Psych: appropriate mood and affect Labs and Cultures: CBC Lab Results Component Value Date/Time WBC 5.1 08/06/2022 04:27 AM Lab Results Component Value Date/Time RBC 2.32 (L) 08/06/2022 04:27 AM Lab Results Component Value Date/Time HGB 7.6 (L) 08/06/2022 04:27 AM Lab Results Component Value Date/Time HCT 24.1 (L) 08/06/2022 04:27 AM Cosigned by Ross Blackburn MD at 08/09/2022 8:49 AM THERAPEUTIC SPECIALIST APEUTIC SPECIALIST APEUTIC SPECIALIST * Merary Langley RN - 08/07/2022 2:34 AM CST Problem: Reduced risk for falls/injury Goal: Reduced Risk for Falls/Injury Outcome: Progressing Problem: Gas Exchange - Impaired Goal: Absence of cyanosis signs and symptoms Outcome: Progressing Problem: Anxiety Goal: Alleviation of anxiety Outcome: Progressing Problem: Pain Goal: Patient's pain/discomfort is manageable Description: Assess and monitor patient's pain using appropriate pain scale. Collaborate with interdisciplinary team and initiate plan and interventions as ordered. Re-assess patient's pain level 30 - 60 minutes after pain management intervention. Outcome: Progressing Problem: Safety Goal: Patient will be injury free during hospitalization Description: Assess and monitor vitals signs, neurological status including level of consciousness and orientation. Assess patient's risk for falls and implement fall prevention plan of care and interventions per hospital policy. Ensure arm band on, uncluttered walking paths in room, adequate room lighting, call light and overbed table within reach, bed in low position, wheels locked, side rails up per policy, and non-skid footwear provided. Outcome: Progressing Problem: Daily Care Goal: Daily care needs are met Description: Assess and monitor ability to perform self care and identify potential discharge needs. Outcome: Progressing Problem: Venous Thromboembolism - Risk of Goal: Absence of venous thromboembolism Outcome: Progressing APEUTIC SPECIALIST * Maggie Fong MD - 08/06/2022 3:24 PM CSTSummary: [facility] Progress note [facility] INFECTIOUS DISE[facility] PROGRESS NOTE Attending Provider:Dr. Fong PCP: JOE TMA DO Reason for Consultation: Loculated pleural effusions, Pneumonia ASSESSMENT AND PLAN Ray Phillips is a 67-year-old male with medical history of chronic tobacco use who was transferred from [facility] near [place] for treatment resistant pneumonia and loculated pleural effusions. Currently on Vancomycin, Cefepime, and metronidazole. Continue vancomycin for pleural fluid growing staph epi, cefepime for GNR in BAL, and flagyl for concerns of abscess on initial imaging. Patient is s/p chesttube placement on 07/27, and bronchoscopy on 07/30. Patient s/p VATS procedure on 08/02. Pending cultures, currently NGTD . [facility] has been consulted for antibiotic management of necrotizing pneumonia and loculated effusions. Diagnoses: Acute Hypoxic Respiratory Failure 2/2 Pneumonia/Loculated Effusions (s/p chest tube on 07/27 and VATS on 08/02) Community Acquire Pneumonia / necrotizing pneumonia Loculated Pleural Effusions Air-Fluid level on imaging concerning for hydropneumothorax, empyema, or fistula Possible COPD Anemia History of Asbestos exposure Smoking [facility] Infectious Disease Team Tentative Final Recommendations - Discontinue Vancomycin and Cefepime. - Transition from cefepime to ceftriaxone 2 g IV every 24 hours with tentative end of therapy 08/30for duration of 4 weeks from VATS. - Continue Metronidazole PO 500 mg q 8h. with tentative end of therapy on 08/30 - Patient s/p VATS procedure 08/02 pending cultures, currently no growth to date. - Pathology pending, will follow peripherally for results. - Appreciate Pulmonology assistance. - Recommend end of treatment chest x-ray in 4 weeks -- Continue picc line for outpatient antibiotic therapy -- While on IV antibiotics, obtain weekly labs - CBC and CMP, please fax to [facility] at [phone] - Please follow-up with [facility] in 3 weeks, please call [phone] to schedule a follow-up apt - Risks of indwelling line/assisted IV antibiotics discussed with patient (including C. diff) -Plan as above discussed with patient, all voiced questions/concerns addressed, voiced agreement and understanding with plan. Thank you for consulting [facility] Infectious Disease. Paulina Dale NP 08/06/22 [facility] ATTENDING I, MAGGIE FONG MD, performed an examination of the patient and discussed the management with the SENIOR GAME DESIGNER. I reviewed the SENIOR GAME DESIGNER's progress note and agree with the findings and plan of care, except as I have documented. Maggie Fong MD SUBJECTIVE Patient seen and examined this today resting in bed. No acute events overnight. Patient had low grade fever overnight 100 but afebrile thus far today. Patient endorses mild SOB but states it has improved. This morning he states around lunchtime he did start to feel nauseous but denies any vomiting or diarrhea. He denies abdominal pain, chest pain, rash. He feels that he is ready to go home but was told he needs to stay an additional day to ensure he will be safe at home and that his respiratorystatus will not drop with movement. Patient currently on 2 L of O2 and states he must stay above 88% in order to be discharged. Review of Systems 10 point ROS negative except as stated in subjective OBJECTIVE Infectious Evaluation Summary Labs SCr 0. 6 1 WBC: 5.1 Images 08/06 chest x-ray: Stable chest 08/05 chest x-ray: Right small pleural effusion and trace left effusion. 08/03 CXR:Developing tiny right pleural effusion otherwise stable interval appearance of infiltratesor atelectasis in the lung bases with probable left effusion. 08/02 CXR: Unchanged bibasilar opacities. 07/31 CT chest: 1. Focal loculated hydropneumothorax, right posterior inferior pleura, unchanged in size; with significantly decreased fluid component and increased air component. Right pleural catheter in place. Probable pneumothorax ex vacuo. Unlikely bronchopleural fistula. 2. Possible interstitial pulmonary edema. Small left pleural effusion. 3. Possible superimposed atypical viral infectious interstitial pneumonia, improved. 4. Emphysema. 07/31 CXR: 1. Right-sided chest remains in place. Persistent pleural-based opacity in the lateral right lower chest likely representing some residual loculated effusion. 2. Increased left basilar opacity likely due to increased atelectasis with possible small effusion.In addition there is some increased groundglass opacity overlying the left midlung. 07/30 CXR: 1) Interval decrease in small left pleural effusion and left basilar consolidation. No other significant change. 07/29 US ABD: 1. 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 The smallest of the 3 cyst demonstrates thin internal septation but appears benign. No follow-up imaging is recommended. 2. Splenomegaly. 07/27 TTE: The left ventricular size is normal. The calculated ejection fraction is 61%. Wall motion appears normal in all segments. The right ventricle is normal in size and function. No evidence of pericardial effusion. Aortic root is mildly dilated. Ascending aorta is mildly dilated. Inferior vena cava shows >50% collapse with respiration consistent with normal right atrial pressure. No significant valvular heart disease. Micro 07/25 Blood Culture x2 : NTD 07/25 Strep Pneumo: negative 07/25 Legionella: negative 07/26 Mycoplasma:negative 07/26 HIV Ab: Negative 07/26 Histoplasma: negative 07/26 Blastomyces: negative 07/27 right pleural fluid anaerobic: Microaerophilic streptococcus 07/27 Right pleural fluid: Staphylococcus epidermidis 07/27 Right Pleural fluid cell count: Protein: 3.5 WBC 144,450 RBC: 90,000 Segs: 97% Lymphs: 3% LDH: >4,000 07/28 Sputum: Alpha Streptococcus, Tete Albicans 07/30 BAL: GNR 07/30 Bronch Wash: NG 08/02 VATS: No growth to date Antimicrobial Regimen Unknown Abx regiment at OL Vancomycin IV 1.25g every 24h(07/25 - ) Cefepime IV 2g every 12h(07/25 - ) Metronidazole 500mg q8h (07/30-) Azithromycin IV 500mg every 24 hours (07/25 -07/29) Drug Monitoring Filed Vitals: 08/06/22 0020 08/06/22 0420 08/06/22 0827 08/06/22 1100 BP: 102/65 99/82 101/84 103/74 Pulse: 68 69 76 73 Resp: Temp: 98.1 ??F (36.7 ??C) 98 ??F (36.7 ??C) 98.7 ??F (37.1 ??C) 98.3 ??F (36.8 ??C) TempSrc: Oral Oral Tympanic SpO2: 95% 92% 97% 97% Weight: Height: Physical Exam HENT: Head: Normocephalic. Eyes: General: No scleral icterus. Conjunctiva/sclera: Conjunctivae normal. Pupils: Pupils are equal, round, and reactive to light. Neck: Vascular: No JVD. Cardiovascular: Rate and Rhythm: Normal rate and regular rhythm. Pulses: Normal pulses. Heart sounds: No murmur heard. Pulmonary: Effort: Pulmonary effort is normal. No accessory muscle usage or respiratory distress. Breath sounds: Reduced breath sounds on the right side. Chest tube with serosanguinous fluid. Abdominal: General: Bowel sounds are normal. There is no distension. Palpations: Abdomen is soft. There is no mass. Tenderness: There is no abdominal tenderness. There is no guarding or rebound. Musculoskeletal: General: Normal range of motion. Cervical back: Normal range of motion and neck supple. Skin: Findings: No erythema or rash. Neurological: Mental Status: He is alert and oriented to person, place, and time. Cranial Nerves: No cranial nerve deficit. Coordination: Coordination normal. Psychiatric: Mood and Affect: Mood and affect normal. Current Facility-Administered Medications: ??? acetaminophen (TYLENOL) tablet 650 mg, 650 mg, Oral, Q4H PRN, Tracy Yo MD, 650 mg at 08/05/222101 ??? albuterol sulfate HFA 108 (90 Base) MCG/ACT inhaler 2 puff, 2 puff, Inhalation, Q4H PRN, Tracy Yo MD ??? alteplase (CATHFLO) injection, , , Code/Trauma/Sedation Med, Raul Osuna MD, 2 mg at 07/27/22 1034 ??? calcium carbonate (TUMS) chewable tablet 500 mg, 500 mg, Oral, Daily PRN, Lanre Winter MD, 500 mg at 08/04/22 1447 ??? cefTRIAXone (ROCEPHIN) 2 g in sodium chloride 0.9 % 50 mL IVPB, 2 g, Intravenous, Q24H, Flora Dale NP, Last Rate: 100 mL/hr at 08/06/22 1325, 2 g at 08/06/22 1325 ??? enoxaparin (LOVENOX) 40 MG/0.4ML syringe 40 mg, 40 mg, Subcutaneous, Nightly (enoxaparin), Lanre Winter MD, 40 mg at 08/05/222051 ??? FLUoxetine (PROzac) capsule 20 mg, 20 mg, Oral, Daily, Tracy Yo MD, 20 mg at 08/06/22 1003 ??? gabapentin (NEURONTIN) capsule 300 mg, 300 mg, Oral, BID, Tracy Yo MD, 300 mg at 08/06/22 1003 ??? HYDROcodone-acetaminophen (NORCO) 10-325 MG tablet 1 tablet, 1 tablet, Oral, Q6H PRN, Tracy Yo MD, 1 tablet at 08/06/22 1325 ??? influenza virus vaccine (QUAD) injection 0.5 mL, 0.5 mL, Intramuscular, Once PRN, Florencio Amaya MD ??? ipratropium-albuterol (COMBIVENT RESPIMAT) 20-100 MCG/ACT inhaler 1 puff, 1 puff, Inhalation, Q4H, Lanre Winter MD, 1 puff at 08/06/22 1311 ??? lidocaine (XYLOCAINE) 1 % injection SOLN, , , Code/Trauma/Sedation Med, Raul Osuna MD, 8 mLat 07/27/22 1016 ??? lidocaine 4 % patch 1 patch, 1 patch, Transdermal, Q24H, Raquel Wetzel MD, 1 patch at 08/06/22 0538 ??? LORazepam (ATIVAN) tablet 1 mg, 1 mg, Oral, BID PRN, Tracy Yo MD, 1 mg at 08/06/22 1325 ??? metroNIDAZOLE (FLAGYL) tablet 500 mg, 500 mg, Oral, 3 times per day, Paulina Dale, JONELLE, 500 mg at 08/06/22 1325 ??? morphine (MSIR) tablet 30 mg, 30 mg, Oral, Q8H PRN, Tracy Yo MD, 30 mg at 08/06/22 1028 ??? normal saline 0.9 % flush 3-10 mL, 3-10 mL, Intravenous, Q8H, JOSEPH Whitehead, 5 mL at 08/06/22 1004 ??? normal saline 0.9 % flush 3-10 mL, 3-10 mL, Intravenous, PRN, JOSEPH Whitehead, 10 mL at 08/02/22 1833 ??? ondansetron (ZOFRAN) injection 4 mg, 4 mg, Intravenous, Q8H PRN, Tracy Yo MD ??? polyethylene glycol (GLYCOLAX) packet 17 g, 17 g, Oral, BID, JOSEPH Whitehead, 17 g at 08/05/22 2056 ??? senna-docusate (SENOKOT-S) 8.6-50 MG tablet 1 tablet, 1 tablet, Oral, Nightly PRN, JOSEPH Whitehead, 1 tablet at 08/06/22 0543 ??? sodium chloride (OCEAN) 0.65 % nasal spray 1 spray, 1 spray, Each Nostril, PRN, Tracy Yo MD, 1 spray at 07/25/22 2305 ??? traZODone (DESYREL) tablet 100 mg, 100 mg, Oral, Nightly at bedtime, Tracy Yo MD, 100 mg at 08/05/222051 APEUTIC SPECIALIST APEUTIC SPECIALIST APEUTIC SPECIALIST * Ilana Dove, GARRICK - 08/06/2022 2:45 PM CSTSummary: home oxygen 08/06/22 1424 Home oxygen evaluation date and time Date of Evaluation 08/06/22 Evaluation Time 1424 Resting Oxygen Saturation Resting Oxygen Saturation on Oxygen 95 % Resting Oxygen Setting 2 Liters/minute Resting Saturation off Oxygen 91 % Exercise Oxygen Saturation Exercise Oxygen Saturation on Oxygen 93 % Exercise Oxygen Setting 2 Liters/Minute Exercise Saturation off Oxygen 87 % Distance Walked 200ft Home Oxygen Evaluation Comment Oxygen Evaluation Comment pt qualifies for home oxygen 2L at this time. thanks Home Oxygen Evaluation Charge $ Home Oxygen Evaluation Charge Yes APEUTIC SPECIALIST * Nimisha Meyer RD - 08/06/2022 2:28 PM CST CLINICAL DIETITIAN RESCREEN Patient is a 67-year-old male admitted secondary to Respiratory failure ([facility]) [J96.90]. Past Medical History: Diagnosis Date ??? Chronic back pain Current diet order: Diet general Appropriate Current diet appropriate? Yes Appetite adequate? Yes Fluid intake appears adequate for hydration. Etienne scale noted to be excellent for nutrition per nurse documentation. Patient receiving EN or TPN? No Admission weight: 68 kg (Date: 07/25/22; Method: Stated) Weight stable? Yes Last 5 Recorded Weights 07/25/22 1330 07/27/22 0254 07/28/22 0326 Weight: 68 kg (150 lb) 68.4 kg (150 lb 12.7 oz) 67.5 kg (148 lb 12.8 oz) Body mass index is 24.76 kg/m??. (WNL) Skin (stage 2 or greater pressure ulcer or other significant non-healing wound)? No Summary: Nutrition risk identified? No Plan: [x] Provide basic nutrition services [x] Rescreen for nutrition risk per protocol [] Monitor NPO/clear liquid status [] Monitor oral intake [] Assess education needs [] Start nutrition assessment NIMISHA MEYER RD, LDN APEUTIC SPECIALIST * Lanre Winter MD - 08/06/2022 2:03 PM CST Progress note CC:-Follow-up of empyema respiratory failure pneumonia SUBJECTIVE Patient seen and examined. Awaiting chest tube removal feels well denies shortness of breath tolerating antibiotics OBJECTIVE Wt Readings from Last 3 Encounters: 07/28/22 67.5 kg (148 lb 12.8 oz) Temp: 98.3 ??F (36.8 ??C) BP Readings from Last 3 Encounters: 08/06/22 103/74 Pulse Readings from Last 3 Encounters: 08/06/22 73 Review of Systems Constitutional: Negative for chills, fever and weight loss. HENT: Negative for congestion and ear pain. Eyes: Negative for blurred vision and double vision. Respiratory: Negative for cough, hemoptysis, sputum production, shortness of breath and wheezing. Cardiovascular: Negative for chest pain, palpitations, orthopnea, leg swelling and PND. Gastrointestinal: Negative for abdominal pain, blood in stool, nausea and vomiting. Genitourinary: Negative for dysuria, flank pain and hematuria. Musculoskeletal: Negative for back pain, joint pain and neck pain. Skin: Negative for rash. Neurological: Negative for speech change, focal weakness and loss of consciousness. Endo/Heme/Allergies: Negative for polydipsia. Psychiatric/Behavioral: Negative for depression and suicidal ideas. The patient is not nervous/anxious. All other systems reviewed and are negative. PHYSICAL EXAMINATION: Physical Exam Vitals and nursing note reviewed. Constitutional: Appearance: He is ill-appearing. HENT: Head: Normocephalic. Eyes: General: No scleral icterus. Conjunctiva/sclera: Conjunctivae normal. Pupils: Pupils are equal, round, and reactive to light. Neck: Vascular: No JVD. Cardiovascular: Rate and Rhythm: Normal rate and regular rhythm. Pulses: Normal pulses. Heart sounds: No murmur heard. Pulmonary: Effort: Pulmonary effort is normal. No accessory muscle usage or respiratory distress. Breath sounds: Normal breath sounds. No wheezing. Abdominal: General: Bowel sounds are normal. There is no distension. Palpations: Abdomen is soft. There is no mass. Tenderness: There is no abdominal tenderness. There is no guarding or rebound. Musculoskeletal: General: Normal range of motion. Cervical back: Normal range of motion and neck supple. Skin: Findings: No erythema or rash. Neurological: Mental Status: He is alert and oriented to person, place, and time. Cranial Nerves: No cranial nerve deficit. Coordination: Coordination normal. Psychiatric: Mood and Affect: Mood and affect normal. LABS: Recent Labs 08/04/2223308/05/2221008/06/22426 WBC 8.5 6.6 5.1 HGB 7.6* 7.0* 7.6* HCT 24.4* 22.0* 24.1* MCV 102.1* 101.4* 103.9* PLT 178 185 207 RBC 2.39* 2.17* 2.32* Recent Labs 08/04/224 08/05/2221008/06/22426 ALT 11* 8* 8* AST 11* 8* 9* CO2 28.6 27.9 27.3 CL 103 104 107 GLU 106 114* 87 K 3.7 3.4* 3.8 NA 137 136 140 BUN 12 11 8 Intake/Output Summary (Last 24 hours) at 08/06/2022 1403 Last data filed at 08/06/2022 1100 Gross per 24 hour Intake 480 ml Output 1360 ml Net -880 ml Microbiology Results (last 14 days) Procedure Component Value Units Date/Time CULTURE, ANAEROBIC [[id number]] Collected: 08/02/22837 Order Status: Completed Lab Status: Preliminary result Updated: 08/03/22 1524 Specimen: TISSUE from OTHER (type in comments) Spec. Description TISSUE: RT DECORTICATION TISU Special Requests: NO SPECIAL REQUEST Culture Result: -- NO ANAEROBES ISOLATED TO DATE CULTURE TB/AFB OTHER (TYPE IN COMMENTS) [[id number]] Collected: 08/02/22837 Order Status: Sent Lab Status: In process Updated: 08/02/22 1009 Specimen: TISSUE from OTHER (type in comments) CULTURE, FUNGUS [[id number]] Collected: 08/02/22837 Order Status: Sent Lab Status: In process Updated: 08/02/22 1010 Specimen: TISSUE from OTHER (type in comments) CULTURE, TISSUE W/GRAM STAIN [[id number]] Collected: 08/02/22837 Order Status: Completed Lab Status: Preliminary result Updated: 08/06/22 1203 Specimen: TISSUE from OTHER (type in comments) Spec. Description TISSUE: RT DECORTICATION TISU Special Requests: NO SPECIAL REQUEST Gram Stain Result -- MODERATE NEUTROPHILS SEEN Gram Stain Result NO ORGANISMS SEEN Culture Result: NO GROWTH 4 DAYS SMEAR,FLUOR STAIN,ACID FAST [[id number]] Collected: 08/02/22837 Order Status: Completed Lab Status: Final result Updated: 08/05/221944 ACID FAST SMEAR RESULT SEE NOTE 08/05/2022 07:45 PM Comment: Test Result Flag Unit RefValue Acid Fast Smear For Mycobacterium SOURCE: LUNG, RIGHT, RT DECORTICATION TIS ACID FAST SMEAR FOR MYCOBACTERIUM FINAL Negative. Test Performed by: [address] [address] Counter Cutter: Brent Alcaraz M.D. Ph.D.; CLIA# [id number] CULTURE, FUNGUS [[id number]] Order Status: No result Lab Status: No result Specimen: BRONCHOALVEO LAV, RT LWR CULTURE TB/AFB OTHER (TYPE IN COMMENTS) [[id number]] Order Status: No result Lab Status: No result Specimen: BRONCHOALVEO LAV, RT LWR SMEAR,FLUOR STAIN,ACID FAST [[id number]] Order Status: No result Lab Status: No result Specimen: BRONCHOALVEO LAV, RT LWR CULTURE VIRAL RESPIRATORY RAPID [[id number]] Order Status: No result Lab Status: No result Specimen: BRONCHOALVEO LAV, RT LWR CULTURE RESPIRATORY W/ GRAM STAIN [[id number]] Order Status: No result Lab Status: No result Specimen: BRONCHIAL WASHING CULTURE, FUNGUS [[id number]] Order Status: No result Lab Status: No result Specimen: BRONCHIAL WASHING CULTURE TB/AFB OTHER (TYPE IN COMMENTS) [[id number]] Order Status: No result Lab Status: No result Specimen: BRONCHIAL WASHING SMEAR,FLUOR STAIN,ACID FAST [[id number]] Order Status: No result Lab Status: No result Specimen: BRONCHIAL WASHING CULTURE VIRAL RESPIRATORY RAPID [[id number]] Order Status: No result Lab Status: No result Specimen: BRONCHIAL WASHING CULTURE, QUANTITATIVE W/ GRAM STAIN [[id number]] Order Status: No result Lab Status: No result Specimen: BRONCHOALVEO LAV, RT LWR CULTURE, FUNGUS [[id number]] Collected: 07/30/22 153 Order Status: No result Lab Status: In process Updated: 07/30/22 1701 CULTURE RESPIRATORY W/ GRAM STAIN [[id number]] Collected: 07/30/22 153 Order Status: Completed Lab Status: Final result Updated: 08/03/22 1228 Specimen: SITE Spec. Description SITE: BRONCH WASH Special Requests: NO SPECIAL REQUEST Gram Stain Result -- MANY NEUTROPHILS SEEN Gram Stain Result NO ORGANISMS SEEN Culture Result: -- FEW TETE ALBICANS SMEAR,FLUOR STAIN,ACID FAST [[id number]] Collected: 07/30/22 1530 Order Status: Completed Lab Status: Final result Updated: 08/01/22 2318 ACID FAST SMEAR RESULT SEE NOTE 08/01/2022 11:18 PM Comment: Test Result Flag Unit RefValue Acid Fast Smear For Mycobacterium SOURCE: BRONCHIAL WASHING, BWASH/BAL MIX ACID FAST SMEAR FOR MYCOBACTERIUM FINAL Negative. Test Performed by: [address] [address] Counter Cutter: Brent Alcaraz M.D. Ph.D.; CLIA# [id number] CULTURE TB/AFB OTHER [[id number]] Collected: 07/30/221529 Order Status: No result Lab Status: In process Updated: 07/30/22 1704 CULTURE, QUANTITATIVE W/ GRAM STAIN [[id number]] Collected: 07/30/221529 Order Status: Completed Lab Status: Final result Updated: 08/02/22 1457 Specimen: SITE Spec. Description SITE: BAL RLL Special Requests: NO SPECIAL REQUEST Gram Stain Result <10 NEUTROPHILS PER LPF Gram Stain Result <10 EPITHELIAL CELLS PER LPF Gram Stain Result -- RARE GRAM NEGATIVE RODS Culture Result: -- 500 CFU/ML YEAST , ID UPON REQUEST CULTURE, FUNGUS [[id number]] Collected: 07/30/221529 Order Status: Canceled Lab Status: No result SMEAR,FLUOR STAIN,ACID FAST [[id number]] Collected: 07/30/221529 Order Status: Canceled Lab Status: No result CULTURE TB/AFB OTHER [[id number]] Collected: 07/30/221529 Order Status: Canceled Lab Status: No result CULTURE CMV [[id number]] Collected: 07/30/221529 Order Status: No result Lab Status: In process Updated: 07/31/22 1431 CULTURE HERPES [[id number]] Collected: 07/30/221529 Order Status: Completed Lab Status: Final result Updated: 08/03/22 1542 HERPES SIMPLEX VIRUS CULTURE REPORT Comment: Herpes Simplex Virus Culture SOURCE : BAL/BWASH MIX IN RESULT Not Isolated Reference Range: Not Isolated Test Performed by Javier Benítez, [employer] [facility], [address] [place], [place] Adrián Balderas M.D., Ph.D., Director of Laboratories , CLIA [id number] Specimen Type BAL/BWASH MIX IN VTM 1 TO 1 RATIO, FRZ NEG 70 CULTURE VIRAL RESPIRATORY RAPID [[id number]] Collected: 07/30/22 1530 Order Status: Completed Lab Status: Final result Updated: 08/05/22 1522 VIRAL RESP RAPID CULTURE W/RFX REPORT Comment: Respiratory Culture Screen SOURCE : BWASH/BAL MIX IN RESULT Negative for Influenza virus, types A and B, Parainfluenza viruses 1,2 # 3, Adenovirus, and Respiratory Syncytial virus. Reference range: Negative Rapid Respiratory Viruses Not indicated Test Performed by [facility], [employer] [facility], [address] [place] [address] Adrián Balderas M.D., Ph.D., Director of Laboratories , CLIA [id number] Specimen Type BWASH/BAL MIX IN VTM 1 TO 1 RATIO, FRZ NEG 70 CULTURE RESPIRATORY W/ GRAM STAIN [[id number]] Collected: 07/28/221424 Order Status: Completed Lab Status: Final result Updated: 07/31/22 0847 Specimen: SPUTUM, EXPECTORATED Spec. Description SPUTUM, EXPECTORATED Special Requests: NO SPECIAL REQUEST Gram Stain Result >25 NEUTROPHILS PER LPF Gram Stain Result <10 EPITHELIAL CELLS PER LPF Gram Stain Result -- RARE BUDDING YEAST CELLS Gram Stain Result -- RARE GRAM POSITIVE COCCI IN PAIRS Gram Stain Result -- RARE GRAM NEGATIVE RODS Culture Result: -- FEW ALPHA STREPTOCOCCUS Culture Result: -- MODERATE PRESUMPTIVE TETE ALBICANS CULTURE, FUNGUS [[id number]] Collected: 07/28/221424 Order Status: Sent Lab Status: In process Updated: 07/31/22 1336 Specimen: SPUTUM, EXPECTORATED CULTURE TB/AFB OTHER (TYPE IN COMMENTS) [[id number]] Collected: 07/28/221424 Order Status: Canceled Lab Status: No result Specimen: SPUTUM, EXPECTORATED SMEAR,FLUOR STAIN,ACID FAST [[id number]] Collected: 07/28/221424 Order Status: No result Lab Status: In process Updated: 07/28/22 1612 HISTOPLASMA ANTIGEN [[id number]] Collected: 07/28/221423 Order Status: Sent Lab Status: No result Specimen: BLOOD HISTOPLASMA ANTIGEN [[id number]] Collected: 07/28/221423 Order Status: Canceled Lab Status: No result Specimen: BLOOD GLUCOSE, BODY FLUID [[id number]] Order Status: Canceled Lab Status: No result Specimen: PLEURAL FLUID PH BODY FLUID [[id number]] Order Status: Canceled Lab Status: No result Specimen: PLEURAL FLUID CULTURE, BODY FLUID W/ GRAM STAIN [[id number]] Order Status: Canceled Lab Status: No result Specimen: PLEURAL FLUID CULTURE, ANAEROBIC [[id number]] Order Status: Canceled Lab Status: No result Specimen: PLEURAL FLUID CULTURE, FUNGUS [[id number]] Order Status: Canceled Lab Status: No result Specimen: PLEURAL FLUID LDH BODY FLUID [[id number]] Collected: 07/27/221029 Order Status: Completed Lab Status: Final result Updated: 07/27/221521 Specimen: PLEURAL FLUID FLUID LDH >4,000 UNITS/L Comment: REFERENCE RANGE NOT ESTABLISHED FOR THIS BODY FLUID. SOURCE (FLUID) PLEURAL FLUID CELL COUNT W/ DIFF BODY FLUID [[id number]] Collected: 07/27/221029 Order Status: Completed Lab Status: Final result Updated: 07/27/22 154 Specimen: PLEURAL FLUID SOURCE (FLUID) PLEURAL FLUID FL WBC 144.450 x10'3/uL Comment: REFERENCE RANGE NOT ESTABLISHED FL RBC 0.090 x10'6/uL Comment: REFERENCE RANGE NOT ESTABLISHED DIFFERENTIAL MANUAL DIFFERENTIAL PERFORMED ON CONCENTRATED CYTOSPIN CELLS COUNTED 100 No COUNTED SEGS (FLUID) 97 % LYMPHS (FLUID) 3 % PROTEIN TOTAL FLUID [[id number]] Collected: 07/27/221029 Order Status: Completed Lab Status: Final result Updated: 07/27/22 152 Specimen: PLEURAL FLUID PROTEIN (FLUID) 3.5 G/DL Comment: REFERENCE RANGE NOT ESTABLISHED FOR THIS BODY FLUID. SOURCE (FLUID) PLEURAL FLUID CULTURE, BODY FLUID W/ GRAM STAIN [[id number]] Collected: 07/27/221029 Order Status: Canceled Lab Status: No result Specimen: PLEURAL FLUID CULTURE, ANAEROBIC [[id number]] Collected: 07/27/221029 Order Status: Canceled Lab Status: No result Specimen: PLEURAL FLUID CULTURE, BODY FLUID W/ GRAM STAIN [[id number]] (Susceptibility) Collected: 07/27/22 1030 Order Status: Completed Lab Status: Final result Updated: 07/31/22 0751 Specimen: PLEURAL FLUID Spec. Description PLEURAL FLUID: RT Special Requests: NO SPECIAL REQUEST Gram Stain Result -- MANY NEUTROPHILS SEEN Gram Stain Result NO ORGANISMS SEEN Culture Result: -- RARE STAPHYLOCOCCUS EPIDERMIDIS Susceptibility Staphylococcus epidermidis ARLEN (VITEK) CLINDAMYCIN Sensitive ERYTHROMYCIN Sensitive GENTAMICIN Sensitive OXACILLIN Sensitive PENICILLIN G Resistant RIFAMPIN Sensitive TETRACYCLINE Sensitive TRIMETH-SULFAMETH. Resistant VANCOMYCIN Sensitive CULTURE, ANAEROBIC [[id number]] (Susceptibility) Collected: 07/27/22 103 Order Status: Completed Lab Status: Final result Updated: 08/01/22 08 Specimen: SITE Spec. Description SITE: RT PLEURAL FLUID Special Requests: NO SPECIAL REQUEST Culture Result: -- FEW MICROAEROPHILIC STREPTOCOCCUS Susceptibility Microaerophilic streptococcus ARLEN (ETEST) CEFOTAXIME 0.023 Sensitive PENICILLIN G 0.008 Sensitive BLASTOMYCES AG MVISTA (TM), EIA [[id number]] Order Status: No result Lab Status: No result Specimen: BLOOD BLASTOMYCES AG MVISTA (TM), EIA [[id number]] Order Status: No result Lab Status: No result Specimen: URINE CORONAVIRUS (COVID 19) PCR - Asymptomatic patients, may be completed at physician discretion [[id number]] Collected: 07/25/222031 Order Status: Canceled Lab Status: No result Specimen: NASOPHARYNGEAL SWAB STREP PNEUMO AG URINE [[id number]] Collected: 07/25/222030 Order Status: Completed Lab Status: Final result Updated: 07/26/22 142 Specimen: URINE, VOIDED S. PNEUMONIAE URINARY AG NEGATIVE Comment: PRESUMPTIVE NEGATIVE FOR PNEUMOCOCCAL PNEUMONIA, SUGGESTING NO CURRENT OR RECENT PNEUMOCOCCAL INFECTION. INFECTION DUE TO STREPTOCOCCUS PNEUMONIA CANNOT BE RULED OUT SINCE THE ANTIGEN PRESENT IN THE SAMPLE MAY BELOW THE DETECTION LIMIT OF THE TEST. Specimen Type URINE VOIDED MRSA PCR nares Screening [[id number]] Collected: 07/25/222030 Order Status: Canceled Lab Status: No result Specimen: NASAL CULTURE, BACTERIA, BLOOD [[id number]] Collected: 07/25/22 1417 Order Status: Completed Lab Status: Final result Updated: 07/30/222144 Specimen: BLOOD Spec. Description BLOOD Special Requests: NO SPECIAL REQUEST Culture Result: NO GROWTH 5 DAYS CULTURE, BACTERIA, BLOOD [[id number]] Collected: 07/25/22 1416 Order Status: Completed Lab Status: Final result Updated: 07/30/222144 Specimen: BLOOD Spec. Description BLOOD Special Requests: BLOOD-AEROBIC BOTTLE ONLY Culture Result: NO GROWTH 5 DAYS Radiology MEDICATIONS Scheduled medications ??? cefTRIAXone 2 g Intravenous Q24H ??? enoxaparin 40 mg Subcutaneous Nightly (enoxaparin) ??? FLUoxetine 20 mg Oral Daily ??? gabapentin 300 mg Oral BID ??? ipratropium-albuterol 1 puff Inhalation Q4H ??? lidocaine 1 patch Transdermal Q24H ??? metroNIDAZOLE 500 mg Oral 3 times per day ??? normal saline 3-10 mL Intravenous Q8H ??? polyethylene glycol 17 g Oral BID ??? traZODone 100 mg Oral Nightly at bedtime Infusion PRN acetaminophen, albuterol sulfate HFA, alteplase, calcium carbonate, HYDROcodone- acetaminophen, influenza virus vaccine (QUAD), lidocaine, LORazepam, morphine, normal saline, ondansetron, senna-docusate, sodium chloride ASSESSMENT /PLAN Ray Phillips is a 67-year-old male with the following history as recorded in [facility]: Problem List Items Addressed This Visit None PLAN: Acute Hypoxic Respiratory Failure??-improved on 2 L Will need home O2 eval likely oxygen at discharge ?? Copd exacerbation improved on combivent o2 ??Necrotizing pneumonia of right lower lobe??with empyema?? 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 Small pericardial effusion on echo ?? Chronic anemia needing transfusion hh??lower monitor - may need transfusion again hemoglobin is 7- likely some blood loss from recent surgery illness type and screen ordered H&H stable overnight likely anemia of chronic disease ?? Chronic back pain Anxiety/depression History of tobacco abuse Chronic compression fracture of L3 Lumbar spondylosis History of back trauma ?dvtp resumed??lovenox ?? Seen this morning chest pain?Improving??no respitory??distress tolerating antibiotics without diarrhea ? Awaiting chest tube removal ,final recs per ID LANRE WINTER MD 2:03 PM 08/06/2022 APEUTIC SPECIALIST * Adali Henry, NUTRITION SERVICES AIDE - 08/06/2022 11:37 AM CST [facility]ULMON[facility]??PROGRESS??NOTE ?? Reason for Admission:?Respiratory failure (CMS/HCC) ?? Reason for Consult:??Respiratory failure, necrotizing pneumonia,??possible loculated??effusion??- empyema or abscess vs bronchopleural fistula ? ASSESSMENT/PLAN Ray Noelle Phillips??is a 67-year-old??male, with history of??chronic back pain,??50-pk year history smoking??who presented??with worsening shortness of breath over??2-3 week period. [address] with CT imaging concerning for loculated fluid collection in right posterior pleural cavity - pneumonia vs empyema or abscess vs bronchopleural fistula. Concern for malignancy as well given history of asbestos exposure, smoking history, and family history of lung cancer. [facility] ID and CT surgery as consulting services as well.??Oxygenation improved post chest tube placement.??CT surgery performed VATS with right decortication 08/02 and chest tube removed 08/06. ?? [facility] Pulmonology consulted for??above. ?? Problem List:?? Acute hypoxic respiratory failure Probable COPD? Necrotizing pneumonia of right lower lobe Loculated right pleural effusion Possible??Pulmonary edema Small pericardial effusion Splenomegaly Acute blood loss anemia? History of tobacco abuse ?? Active workup:?? CT imaging reviewed. Pleural fluid cx 07/27: rare staph epi; few microairophilic strep on on anaerobic cx Sputum cx 07/28:??presumptive tete albicans BAL cx 07/30: rare GNR on stain, yeast on culture Bronch wash cx: few tete albicans VATS tissue cx: no growth x 3 days ?? [facility] Pulmonology Plan/ Recommendations: - Chest tube placed 07/27/22 and removed today 08/06. Pleural fluid cx with rare staph epi, and anaerobic cx with few microaerophilic strep. Exudative fluid with LDH >4000. Likely empyema. - Bronchoscopy completed 07/30. BAL??and bronch wash cx growing yeast.??Possible contaminant. - Repeat CT 07/31 appeared??to still have loculated collection, hydropneumothorax, so??VATS decortication done 08/02. Patient tolerated well. CT on 08/04/22 with small R fluid collection, noted CTS reviewed and likely not amenable to tube placement. CTS removed chest tube today. - Home O2 eval today: Patient requires 2L oxygen with activity. Discussed results with patient and answered all questions. - Can follow with Dr. Pineda in [facility] after discharge ([phone]). Dr. Pineda will be in [place] 08/08 and 08/22. Patient will call clinic and see which days have an opening. - ID following for antibiotic management. ?? Thank you for the consult. We will sign off. Call back with questions or concerns. Adali Henry, NUTRITION SERVICES AIDE 08/06/2022 SUBJECTIVE Patient doing well. Denies shortness of breath, cough, wheeze, fevers chills this morning. He is on2L oxygen. States he was told CTS plans to remove chest tube today. Review of Systems All other systems reviewed and are negative. OBJECTIVE Vitals: Filed Vitals: 08/05/22200408/06/22 0020 08/06/22 0420 08/06/22 0827 BP: 121/89 102/65 99/82 101/84 Pulse: 83 68 69 76 Resp: 25 13 17 20 Temp: 100 ??F (37.8 ??C) 98.1 ??F (36.7 ??C) 98 ??F (36.7 ??C) 98.7 ??F (37.1 ??C) TempSrc: Oral Oral Oral Tympanic SpO2: 99% 95% 92% 97% Weight: Height: Physical Exam Constitutional: General: He is not in acute distress. Appearance: Normal appearance. He is normal weight. HENT: Head: Normocephalic and atraumatic. Mouth/Throat: Mouth: Mucous membranes are moist. Eyes: General: No scleral icterus. Extraocular Movements: Extraocular movements intact. Cardiovascular: Rate and Rhythm: Normal rate and regular rhythm. Pulses: Normal pulses. Heart sounds: Normal heart sounds. Pulmonary: Effort: Pulmonary effort is normal. No respiratory distress. Breath sounds: No wheezing. Comments: Chest tube in place right side. Breath sounds diminished right middle and lower lobe. Chest tube has been removed when patient seen on attending rounds. Abdominal: General: Bowel sounds are normal. Palpations: Abdomen is soft. Musculoskeletal: Right lower leg: No edema. Left lower leg: No edema. Skin: General: Skin is warm and dry. Neurological: General: No focal deficit present. Mental Status: He is alert and oriented to person, place, and time. Psychiatric: Mood and Affect: Mood normal. Behavior: Behavior normal. Medications: ??? cefTRIAXone 2 g Intravenous Q24H ??? enoxaparin 40 mg Subcutaneous Nightly (enoxaparin) ??? FLUoxetine 20 mg Oral Daily ??? gabapentin 300 mg Oral BID ??? ipratropium-albuterol 1 puff Inhalation Q4H ??? lidocaine 1 patch Transdermal Q24H ??? metroNIDAZOLE 500 mg Oral 3 times per day ??? normal saline 3-10 mL Intravenous Q8H ??? polyethylene glycol 17 g Oral BID ??? traZODone 100 mg Oral Nightly at bedtime PRN: acetaminophen, albuterol sulfate HFA, alteplase, calcium carbonate, HYDROcodone- acetaminophen, influenza virus vaccine (QUAD), lidocaine, LORazepam, morphine, normal saline, ondansetron, senna-docusate, sodium chloride Allergies Allergen Reactions ??? Motrin [Ibuprofen] Shortness of Breath ??? Nsaids Shortness of Breath and GI Upset ??? Prednisone Shortness of Breath Intake/Output Summary (Last 24 hours) at 08/06/2022 1137 Last data filed at 08/06/2022 0900 Gross per 24 hour Intake 480 ml Output 710 ml Net -230 ml Labs: Recent Labs Lab 07/31/22 0941 08/01/22 0242 08/03/22 0222 08/04/22 0234 08/05/22 0211 08/06/22 0427 WBC 16.2* 11.1* 11.0* 8.5 6.6 5.1 RBC 3.07* 2.58* 2.84* 2.39* 2.17* 2.32* HGB 10.1* 8.6* 9.2* 7.6* 7.0* 7.6* HCT 31.0* 26.4* 28.9* 24.4* 22.0* 24.1* MCV 101.0* 102.3* 101.8* 102.1* 101.4* 103.9* MCH 32.9* 33.3* 32.4* 31.8* 32.3* 32.8* MCHC 32.6* 32.6* 31.8* 31.1* 31.8* 31.5* PLT 277 246 216 178 185 207 RDW 15.3* 15.4* 15.1* 14.8* 14.7* 15.0* NEUC 14.00* 8.96* 8.98* 6.33 4.78 3.59 L[facility] 1.26 1.27 0.81 1.11 1.03 0.90 MONOC 0.59 0.60 1.00 0.85 0.68 0.45 EOSC 0.01 0.12 0.12 0.14 0.10 0.09 BASOC 0.02 0.01 0.01 0.01 0.01 0.01 Recent Labs Lab 07/31/22 1113 08/01/22 0242 08/01/22 1131 08/03/22 0222 08/04/22 0234 08/05/22 0211 08/06/22 0427 NA 137 140 138 136 137 136 140 K 3.6 3.4* 3.9 3.8 3.7 3.4* 3.8 CL 104 107 107 102 103 104 107 CO2 27.8 27.2 24.1 28.4 28.6 27.9 27.3 BUN 20* 19* 16 11 12 11 8 CR 0.74 0.77 0.70 0.75 0.62* 0.58* 0.61* GLU 106 145* -- 109* 106 114* 87 CA 8.1* 8.1* 7.9* 8.0* 7.9* 7.9* 8.0* TP 5.6* 5.0* -- 5.4* 5.0* 4.9* 5.2* ALB 1.9* 1.7* -- 1.9* 1.6* 1.5* 1.6* TBIL 0.3 0.4 -- 0.6 0.6 0.4 0.3 ALKP 54 50 -- 49 41* 39* 43* AST 8* 8* -- 11* 11* 8* 9* ALT 15* 14* -- 13* 11* 8* 8* Recent Imaging: Radiology Results (Last 48 hours) 08/06/22 0528 XR CHEST PA OR AP 1V Final result Impression: IMPRESSION: Stable chest. Referred By: PROVIDER NON-STAFF Interpreted By: Wali Gary MD, 08/06/2022 6:29 AM 08/05/22 0552 XR CHEST PA OR AP 1V Final result Impression: IMPRESSION: Unchanged appearance of the chest when compared with the radiograph exam from yesterday. Ordered By: EDVIN POLLACK Interpreted By: Antonio Hill MD, 08/05/2022 7:35 AM 08/04/[address] CHEST WO CON Final result Impression: IMPRESSION: 1. Interval decrease in size of right hydropneumothorax with small residual right pleural effusion. Chest tube replacement. No pneumothorax. 2. Interval development of a probable new loculated pleural effusion along the right lower lung. Unchanged appearance of a right upper lobe loculated pleural effusion. Unchanged small to moderate left pleural effusion is also present. 3. Hazy pulmonary opacities within the left lung favored to represent atelectasis and/or pulmonary edema although pneumonia cannot be excluded. Left lower lobe airway impaction. 4. Cardiomegaly. Scattered smooth interlobular septal thickening likely representing mild fluid overload. 5. Mild centrilobular emphysema 6. Cholelithiasis without cholecystitis. 7. Fractures of the right 10th and 12th ribs. 8. Large hiatal hernia with refluxed gastric contents. The attending radiologist has reviewed the image(s) and agrees with the content of this report. Ordered By: PATEL KELSEY Interpreted By: Ulisses Arcos, 08/04/2022 3:35 PM Cosigned by Patti Pineda MD at 08/06/2022 6:25 PM THERAPEUTIC SPECIALIST APEUTIC SPECIALIST APEUTIC SPECIALIST APEUTIC SPECIALIST Associated attestation - Patti Pineda MD - 08/06/2022 6:25 PM THERAPEUTIC SPECIALIST Seen by [employer] Has COPD, 50-pk year history smoking who presented with worsening shortness of breath over 2-[address]. [address] imaging concerning for loculated fluid collection in right posterior pleural cavity - pneumonia vs empyema Drained then had decortication, per Dr Blackburn, chest tube removed per surgery, he is doing well,saturations normal 95% on room air, went down to 87% with walking 200 feet, placed on 2 L/m did well saturations above 93%, will continue antibiotics per ID, [facility], oxygen 2 L/m follow up CXR GI DVT prophylaxis and rest of medical management per PCP. Patient seen and evaluated frequently during the course of the day, discussed current laboratory and radiographic data as well as plan of care, patient in agreement with above. * Maria Antonia Quiñones PharmD - 08/06/2022 10:45 AM CST Pharmacy Clinical Services: Sign off note Pharmacy has been consulted to dose vancomycin. Pharmacy will now sign off dosing as the drug has been discontinued. Thank you for allowing us the opportunity to participate in the care of Ray Phillips. Please let pharmacy know if we can be of further assistance. Maria Antonia Quiñones PharmD Phone number: [phone] 08/06/2022 10:45 AM APEUTIC SPECIALIST * Suzi Irby RN - 08/06/2022 10:24 AM CSTSummary: IDR 08/06/22 1003 Interdisciplinary Group Information Next Conference Date 08/07/22 Interdisciplinary Group Conference Team Members Present Physician;Case/Care management;Nursing (Dr. [facility]) Barriers to Discharge Barriers Not Medically ready Not Medically ready follow up planned d/c chest tube, waiting on ID final recs, home O2 eval, keep IMC APEUTIC SPECIALIST * Ross Blackburn MD - 08/06/2022 9:40 AM CST In bathroom cleaning up. No leak seen. Small output. Maybe a small effusion. Plan to remove chest tube. APEUTIC SPECIALIST * Anisa B Drainer, RANCH COOK - 08/06/2022 8:44 AM CST OT Treatment Discharge Recommendation: home with assistance Activity Recommendation for configuration management specialist: Per nursing discretion, OT signing off. 08/06/22822 Therapy Visit OT Received On 08/06/22 Reason for admission Update: Pt had VATS with R decorication on 08/02 with R chest tube placement (CT to suction). Discussed with Ana MOYA who okayed lead technical writer proceed with POC. Pt is a 67 yo male who presents with SOB, PNA, hydropneumothorax, and loculated effusions. Pt may requires chest tube placeme nt.....PMH:chronic back pain due to back trauma 20 years ago, anxiety/depression, tobacco abuse....Eval and tx, activity as tolerated Ordering Provider Tracy Yo MD Verified Two Patient Identifiers Yes Patient consents to therapy Yes Acute Inpatient OT Time Calculation OT Start Time 822 OT Stop Time 843 OT Time Calculation (min) 21 min Precautions General Precautions Bed Alarm;Chair Alarm;Multiple lines;Fall Risk Instructed on Precautions Yes;Verbalizes understanding;Needs reinforcement and education Other tele, chest tube to wall suction, 2L O2, IV Home Living Home Living Comments Per eval, pt lives with in a 1 with no PRANAY. Pt has a walk in shower with shower chair, and gbs. Pt has a tall toilet with sink closeby. Pt has a 2ww, and cane but was notusing at home. 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 Pt reports he was noton home O2, and no falls. Subjective Subjective Pt supine in bed upon arrival to room, pleasant and agreeable to OT txt. Pain Pain No Activity Tolerance Activity Tolerance Comments improving Cognition Overall Cognitive Status WFL Arousal/Alertness Appropriate responses to stimuli Attention Span Appears intact Memory Appears intact Orientation Level Oriented X4 Following Commands Follows all commands and directions without difficulty Safety Judgment Decreased awareness of need for safety Awareness of Errors Good awareness of errors made Deficits Fully aware of deficits Problem Solving Able to problem solve independently ADL Grooming Assistance Independent;Standing at sink Grooming Deficit Wash/dry hands;Wash/dry face;Teeth care;Brushing hair LE Dressing Assistance Independent;Sitting at EOB LE Dressing Deficit Don/doff L shoe;Don/doff R shoe Toileting Assistance Independent Toileting Deficit Clothing management up;Clothing management down;Perineal hygiene Additional Comments Pt mostly limited by multiple lines requiring verbal cues on safety awareness however overall is independent with ADLs today. Bed Mobility Supine to Sit Independent Functional Transfers Sit to Stand Independent Bed to Chair Independent Toilet Transfers Independent Functional Mobility Pt participated in functional mobility within room using no AD/occasional use of IV pole to mock household mobility needs prior to returning home. Pt with no LOB, pt appears kyphotic but this is his baseline. Balance Sitting - Static Independent Sitting - Dynamic Independent Standing - Static Independent Standing - Dynamic Independent;Modified independence Other (Comment) No LOB during ADL routine today no AD. OT Assessment OT Assessment Pt has met his current POC and safe to return home with assistance once medically ready. Recommendation OT Recommendation Home with assistance Plan Progress Discontinue OT OT - Next Appointment 08/06/22 If this is the last treatment note, it will serve as the discharge summary Yes Education: Primary Learners Name: Ray Phillips Primary Language of learner: Angolan Patient was educated on precautions exercises transfers ADLs balance bed mobility equipment therapy plan safety energy conservation adaptive skills. Education was completed one to one this date. Preference of learning new concepts one to one Barriers to education this date were none. Response to education this date verbalized understanding. APEUTIC SPECIALIST * Maria Antonia Quiñones, PharmD - 08/06/2022 8:22 AM CST Vancomycin Pharmacokinetic Progress Note Day 11 of therapy Ray Phillips is a 67-year-old male for which pharmacy has been consulted to dose vancomycin for pleural fluid growing Staphylococcus Epidermidis. Other antibiotics ordered include cefepime 2 mg IV Q12H (07/25-) and metronidazole PO 500 mg Q8H (07/30-) and previous azithromycin 500 mg IV Q24H (07/25-07/29) Historical vancomycin use: vancomycin 1000 mg x1 07/23/22 @2330 Allergies: Allergies Allergen Reactions ??? Motrin [Ibuprofen] Shortness of Breath ??? Nsaids Shortness of Breath and GI Upset ??? Prednisone Shortness of Breath Height: 5' 5 (1.651 m) Weight: 67.5 kg (148 lb 12.8 oz) Body mass index is 24.76 kg/m??. Temp (24 hr max): Temp Av.7 ??F (37.1 ??C) Min: 98 ??F (36.7 ??C) Max: 100 ??F (37.8 ??C) Today's labs and vitals: Lab Results Component Value Date/Time WBC 5.1 08/06/2022 04:27 AM WBC 6.6 08/05/2022 02:11 AM WBC 8.5 08/04/2022 02:34 AM WBC 11.0 (H) 08/03/2022 02:22 AM WBC 11.1 (H) 08/01/2022 02:42 AM Lab Results Component Value Date/Time CR 0.61 (L) 08/06/2022 04:27 AM CR 0.58 (L) 08/05/2022 02:11 AM CR 0.62 (L) 08/04/2022 02:34 AM CR 0.75 08/03/2022 02:22 AM CR 0.70 08/01/2022 11:31 AM CrCl = estimated creatinine clearance is 105 mL/min (A) (based on SCr of 0.61 mg/dL (L)). Intake/Output Summary (Last 24 hours) at 08/06/2022 0822 Last data filed at 08/05/2022 1753 Gross per 24 hour Intake -- Output 10 ml Net -10 ml Pertinent Cultures: Date Drawn Site Organism Pertinent Sensitivity 07/25 BCX 2/2 NGTD Strep PNU Urine Negative 07/28 Sputum Rare Budding Yeast Rare GPC Rare GNR Few Alpha Strep 07/29 Sputum Alpha Strep, moderate presuptive CA 07/30 Bronch wash Many neutrophils, culture pending <10 neutrophils < 10 epit 500 CFU Yeast Rare GNR 07/27 (last updated 07/31) Pleural fluid Staph epi Sensitive to clindamycin, erythromycin, gentamicin, oxacillin, rifampin, tetracycline, and vancomycin 07/27 (last updated 08/01) Pleural fluid Microaerophilic strep Sensitive to cefotaxime and Penicillin G 08/02 tissue ngtd No pertinent past Epic positive culture history Levels: Date Time Level AUC Dose Comments 07/28 0703 7 336 1.75 gm x1 1.25 gm x2 24h 3m 07/30 0617 24.4 464 1.75 gm x1 1.25 gm x2 1.00 gm x4 3h 55m 08/01 1131 18.7 535 1.75 gm x1 1.25 gm x2 1.00 gm x8 8 h 50 m 08/06 0427 15.7 517 1 g Q12H 11.5 hrs Assessment: Ray Phillips is a 67-year-old male who is currently receiving vancomycin. AUC goal is 400 - 600 Current AUC level is Therapeutic Renal function is Stable DESTINI ID is consulted Plan: Antibiotic Plan: Continue scheduled dosing with 1000 mg q12h (est. AUC of 517) moving to 05/23 dosing time to consolidate RN MAR administrations. Goal Trough 11.6-15.6 Next level due: 5-7 days Pharmacy will continue to follow cultures, clinical status, and appropriateness of therapy. Thank you for the consult. Pharmacy Consult per Dr. Srinath Quiñones, PharmD Phone: [phone] 08/06/2022 8:22 AM APEUTIC SPECIALIST * Lanre Winter MD - 08/05/2022 2:41 PM CST Progress note CC:-Follow-up of empyema respiratory failure pneumonia SUBJECTIVE Patient seen and examined. Continues to have chest tube to suction denies chest pain nausea vomiting abdominal pain feels well OBJECTIVE Wt Readings from Last 3 Encounters: 07/28/22 67.5 kg (148 lb 12.8 oz) Temp: 98.6 ??F (37 ??C) BP Readings from Last 3 Encounters: 08/05/22 119/71 Pulse Readings from Last 3 Encounters: 08/05/22 65 Review of Systems Constitutional: Negative for chills, fever and weight loss. HENT: Negative for congestion and ear pain. Eyes: Negative for blurred vision and double vision. Respiratory: Negative for cough, hemoptysis, sputum production, shortness of breath and wheezing. Cardiovascular: Negative for chest pain, palpitations, orthopnea, leg swelling and PND. Gastrointestinal: Negative for abdominal pain, blood in stool, nausea and vomiting. Genitourinary: Negative for dysuria, flank pain and hematuria. Musculoskeletal: Negative for back pain, joint pain and neck pain. Skin: Negative for rash. Neurological: Negative for speech change, focal weakness and loss of consciousness. Endo/Heme/Allergies: Negative for polydipsia. Psychiatric/Behavioral: Negative for depression and suicidal ideas. The patient is not nervous/anxious. All other systems reviewed and are negative. PHYSICAL EXAMINATION: Physical Exam Vitals and nursing note reviewed. Constitutional: Appearance: He is ill-appearing. HENT: Head: Normocephalic. Eyes: General: No scleral icterus. Conjunctiva/sclera: Conjunctivae normal. Pupils: Pupils are equal, round, and reactive to light. Neck: Vascular: No JVD. Cardiovascular: Rate and Rhythm: Normal rate and regular rhythm. Pulses: Normal pulses. Heart sounds: No murmur heard. Pulmonary: Effort: Pulmonary effort is normal. No accessory muscle usage or respiratory distress. Breath sounds: Normal breath sounds. No wheezing. Abdominal: General: Bowel sounds are normal. There is no distension. Palpations: Abdomen is soft. There is no mass. Tenderness: There is no abdominal tenderness. There is no guarding or rebound. Musculoskeletal: General: Normal range of motion. Cervical back: Normal range of motion and neck supple. Skin: Findings: No erythema or rash. Neurological: Mental Status: He is alert and oriented to person, place, and time. Cranial Nerves: No cranial nerve deficit. Coordination: Coordination normal. Psychiatric: Mood and Affect: Mood and affect normal. LABS: Recent Labs 08/03/2222108/04/2223308/05/22210 WBC 11.0* 8.5 6.6 HGB 9.2* 7.6* 7.0* HCT 28.9* 24.4* 22.0* MCV 101.8* 102.1* 101.4* PLT 216 178 185 RBC 2.84* 2.39* 2.17* Recent Labs 08/03/2222108/04/2223308/05/22210 ALT 13* 11* 8* AST 11* 11* 8* CO2 28.4 28.6 27.9 CL 102 103 104 GLU 109* 106 114* K 3.8 3.7 3.4* NA 136 137 136 BUN 11 12 11 Intake/Output Summary (Last 24 hours) at 08/05/2022 1441 Last data filed at 08/05/2022 0620 Gross per 24 hour Intake -- Output 330 ml Net -330 ml Microbiology Results (last 14 days) Procedure Component Value Units Date/Time CULTURE, ANAEROBIC [[id number]] Collected: 08/02/22837 Order Status: Completed Lab Status: Preliminary result Updated: 08/03/22 1524 Specimen: TISSUE from OTHER (type in comments) Spec. Description TISSUE: RT DECORTICATION TISU Special Requests: NO SPECIAL REQUEST Culture Result: -- NO ANAEROBES ISOLATED TO DATE CULTURE TB/AFB OTHER (TYPE IN COMMENTS) [[id number]] Collected: 08/02/22837 Order Status: Sent Lab Status: In process Updated: 08/02/22 1009 Specimen: TISSUE from OTHER (type in comments) CULTURE, FUNGUS [[id number]] Collected: 08/02/22837 Order Status: Sent Lab Status: In process Updated: 08/02/22 1010 Specimen: TISSUE from OTHER (type in comments) CULTURE, TISSUE W/GRAM STAIN [[id number]] Collected: 08/02/22837 Order Status: Completed Lab Status: Preliminary result Updated: 08/05/22 1202 Specimen: TISSUE from OTHER (type in comments) Spec. Description TISSUE: RT DECORTICATION TISU Special Requests: NO SPECIAL REQUEST Gram Stain Result -- MODERATE NEUTROPHILS SEEN Gram Stain Result NO ORGANISMS SEEN Culture Result: NO GROWTH 3 DAYS SMEAR,FLUOR STAIN,ACID FAST [[id number]] Collected: 08/02/22837 Order Status: No result Lab Status: In process Updated: 08/02/22 1012 CULTURE, FUNGUS [[id number]] Order Status: No result Lab Status: No result Specimen: BRONCHOALVEO LAV, RT LWR CULTURE TB/AFB OTHER (TYPE IN COMMENTS) [[id number]] Order Status: No result Lab Status: No result Specimen: BRONCHOALVEO LAV, RT LWR SMEAR,FLUOR STAIN,ACID FAST [[id number]] Order Status: No result Lab Status: No result Specimen: BRONCHOALVEO LAV, RT LWR CULTURE VIRAL RESPIRATORY RAPID [[id number]] Order Status: No result Lab Status: No result Specimen: BRONCHOALVEO LAV, RT LWR CULTURE RESPIRATORY W/ GRAM STAIN [[id number]] Order Status: No result Lab Status: No result Specimen: BRONCHIAL WASHING CULTURE, FUNGUS [[id number]] Order Status: No result Lab Status: No result Specimen: BRONCHIAL WASHING CULTURE TB/AFB OTHER (TYPE IN COMMENTS) [[id number]] Order Status: No result Lab Status: No result Specimen: BRONCHIAL WASHING SMEAR,FLUOR STAIN,ACID FAST [[id number]] Order Status: No result Lab Status: No result Specimen: BRONCHIAL WASHING CULTURE VIRAL RESPIRATORY RAPID [[id number]] Order Status: No result Lab Status: No result Specimen: BRONCHIAL WASHING CULTURE, QUANTITATIVE W/ GRAM STAIN [[id number]] Order Status: No result Lab Status: No result Specimen: BRONCHOALVEO LAV, RT LWR CULTURE, FUNGUS [[id number]] Collected: 07/30/22 1530 Order Status: No result Lab Status: In process Updated: 07/30/22 1701 CULTURE RESPIRATORY W/ GRAM STAIN [[id number]] Collected: 07/30/22 153 Order Status: Completed Lab Status: Final result Updated: 08/03/22 1228 Specimen: SITE Spec. Description SITE: BRONCH WASH Special Requests: NO SPECIAL REQUEST Gram Stain Result -- MANY NEUTROPHILS SEEN Gram Stain Result NO ORGANISMS SEEN Culture Result: -- FEW TETE ALBICANS SMEAR,FLUOR STAIN,ACID FAST [[id number]] Collected: 07/30/221529 Order Status: Completed Lab Status: Final result Updated: 08/01/22 2318 ACID FAST SMEAR RESULT SEE NOTE 08/01/2022 11:18 PM Comment: Test Result Flag Unit RefValue Acid Fast Smear For Mycobacterium SOURCE: BRONCHIAL WASHING, BWASH/BAL MIX ACID FAST SMEAR FOR MYCOBACTERIUM FINAL Negative. Test Performed by: [place] [address] Counter Cutter: Brent Alcaraz M.D. Ph.D.; CLIA# [id number] CULTURE TB/AFB OTHER [[id number]] Collected: 07/30/221529 Order Status: No result Lab Status: In process Updated: 07/30/22 1704 CULTURE, QUANTITATIVE W/ GRAM STAIN [[id number]] Collected: 07/30/221529 Order Status: Completed Lab Status: Final result Updated: 08/02/22 1457 Specimen: SITE Spec. Description SITE: BAL RLL Special Requests: NO SPECIAL REQUEST Gram Stain Result <10 NEUTROPHILS PER LPF Gram Stain Result <10 EPITHELIAL CELLS PER LPF Gram Stain Result -- RARE GRAM NEGATIVE RODS Culture Result: -- 500 CFU/ML YEAST , ID UPON REQUEST CULTURE, FUNGUS [[id number]] Collected: 07/30/221529 Order Status: Canceled Lab Status: No result SMEAR,FLUOR STAIN,ACID FAST [[id number]] Collected: 07/30/221529 Order Status: Canceled Lab Status: No result CULTURE TB/AFB OTHER [[id number]] Collected: 07/30/221529 Order Status: Canceled Lab Status: No result CULTURE CMV [[id number]] Collected: 07/30/221529 Order Status: No result Lab Status: In process Updated: 07/31/22 1431 CULTURE HERPES [[id number]] Collected: 07/30/22 153 Order Status: Completed Lab Status: Final result Updated: 08/03/22 1542 HERPES SIMPLEX VIRUS CULTURE REPORT Comment: Herpes Simplex Virus Culture SOURCE : BAL/BWASH MIX IN RESULT Not Isolated Reference Range: Not Isolated Test Performed by [facility], [employer] [facility], [address] [place], [place] Adrián Balderas M.D., Ph.D., Director of Laboratories , [facility] [id number] Specimen Type BAL/BWASH MIX IN VTM 1 TO 1 RATIO, FRZ NEG 70 CULTURE VIRAL RESPIRATORY RAPID [[id number]] Collected: 07/30/22 153 Order Status: No result Lab Status: In process Updated: 07/31/22 143 CULTURE RESPIRATORY W/ GRAM STAIN [[id number]] Collected: 07/28/221424 Order Status: Completed Lab Status: Final result Updated: 07/31/22 0847 Specimen: SPUTUM, EXPECTORATED Spec. Description SPUTUM, EXPECTORATED Special Requests: NO SPECIAL REQUEST Gram Stain Result >25 NEUTROPHILS PER LPF Gram Stain Result <10 EPITHELIAL CELLS PER LPF Gram Stain Result -- RARE BUDDING YEAST CELLS Gram Stain Result -- RARE GRAM POSITIVE COCCI IN PAIRS Gram Stain Result -- RARE GRAM NEGATIVE RODS Culture Result: -- FEW ALPHA STREPTOCOCCUS Culture Result: -- MODERATE PRESUMPTIVE TETE ALBICANS CULTURE, FUNGUS [[id number]] Collected: 07/28/22 142 Order Status: Sent Lab Status: In process Updated: 07/31/22 1336 Specimen: SPUTUM, EXPECTORATED CULTURE TB/AFB OTHER (TYPE IN COMMENTS) [[id number]] Collected: 07/28/221424 Order Status: Canceled Lab Status: No result Specimen: SPUTUM, EXPECTORATED SMEAR,FLUOR STAIN,ACID FAST [[id number]] Collected: 07/28/22 142 Order Status: No result Lab Status: In process Updated: 07/28/22 1612 HISTOPLASMA ANTIGEN [[id number]] Collected: 07/28/22 142 Order Status: Sent Lab Status: No result Specimen: BLOOD HISTOPLASMA ANTIGEN [[id number]] Collected: 07/28/22 1424 Order Status: Canceled Lab Status: No result Specimen: BLOOD GLUCOSE, BODY FLUID [[id number]] Order Status: Canceled Lab Status: No result Specimen: PLEURAL FLUID PH BODY FLUID [[id number]] Order Status: Canceled Lab Status: No result Specimen: PLEURAL FLUID CULTURE, BODY FLUID W/ GRAM STAIN [[id number]] Order Status: Canceled Lab Status: No result Specimen: PLEURAL FLUID CULTURE, ANAEROBIC [[id number]] Order Status: Canceled Lab Status: No result Specimen: PLEURAL FLUID CULTURE, FUNGUS [[id number]] Order Status: Canceled Lab Status: No result Specimen: PLEURAL FLUID LDH BODY FLUID [[id number]] Collected: 07/27/221029 Order Status: Completed Lab Status: Final result Updated: 07/27/221521 Specimen: PLEURAL FLUID FLUID LDH >4,000 UNITS/L Comment: REFERENCE RANGE NOT ESTABLISHED FOR THIS BODY FLUID. SOURCE (FLUID) PLEURAL FLUID CELL COUNT W/ DIFF BODY FLUID [[id number]] Collected: 07/27/221029 Order Status: Completed Lab Status: Final result Updated: 07/27/22 154 Specimen: PLEURAL FLUID SOURCE (FLUID) PLEURAL FLUID FL WBC 144.450 x10'3/uL Comment: REFERENCE RANGE NOT ESTABLISHED FL RBC 0.090 x10'6/uL Comment: REFERENCE RANGE NOT ESTABLISHED DIFFERENTIAL MANUAL DIFFERENTIAL PERFORMED ON CONCENTRATED CYTOSPIN CELLS COUNTED 100 No COUNTED SEGS (FLUID) 97 % LYMPHS (FLUID) 3 % PROTEIN TOTAL FLUID [[id number]] Collected: 07/27/221029 Order Status: Completed Lab Status: Final result Updated: 07/27/22 152 Specimen: PLEURAL FLUID PROTEIN (FLUID) 3.5 G/DL Comment: REFERENCE RANGE NOT ESTABLISHED FOR THIS BODY FLUID. SOURCE (FLUID) PLEURAL FLUID CULTURE, BODY FLUID W/ GRAM STAIN [[id number]] Collected: 07/27/221029 Order Status: Canceled Lab Status: No result Specimen: PLEURAL FLUID CULTURE, ANAEROBIC [[id number]] Collected: 07/27/221029 Order Status: Canceled Lab Status: No result Specimen: PLEURAL FLUID CULTURE, BODY FLUID W/ GRAM STAIN [[id number]] (Susceptibility) Collected: 07/27/221029 Order Status: Completed Lab Status: Final result Updated: 07/31/22 0751 Specimen: PLEURAL FLUID Spec. Description PLEURAL FLUID: RT Special Requests: NO SPECIAL REQUEST Gram Stain Result -- MANY NEUTROPHILS SEEN Gram Stain Result NO ORGANISMS SEEN Culture Result: -- RARE STAPHYLOCOCCUS EPIDERMIDIS Susceptibility Staphylococcus epidermidis ARLEN (VITEK) CLINDAMYCIN Sensitive ERYTHROMYCIN Sensitive GENTAMICIN Sensitive OXACILLIN Sensitive PENICILLIN G Resistant RIFAMPIN Sensitive TETRACYCLINE Sensitive TRIMETH-SULFAMETH. Resistant VANCOMYCIN Sensitive CULTURE, ANAEROBIC [[id number]] (Susceptibility) Collected: 07/27/22 1030 Order Status: Completed Lab Status: Final result Updated: 08/01/22 0826 Specimen: SITE Spec. Description SITE: RT PLEURAL FLUID Special Requests: NO SPECIAL REQUEST Culture Result: -- FEW MICROAEROPHILIC STREPTOCOCCUS Susceptibility Microaerophilic streptococcus ARLEN (ETEST) CEFOTAXIME 0.023 Sensitive PENICILLIN G 0.008 Sensitive BLASTOMYCES AG MVISTA (TM), EIA [[id number]] Order Status: No result Lab Status: No result Specimen: BLOOD BLASTOMYCES AG MVISTA (TM), EIA [[id number]] Order Status: No result Lab Status: No result Specimen: URINE CORONAVIRUS (COVID 19) PCR - Asymptomatic patients, may be completed at physician discretion [[id number]] Collected: 07/25/222031 Order Status: Sent Lab Status: No result Specimen: NASOPHARYNGEAL SWAB STREP PNEUMO AG URINE [[id number]] Collected: 07/25/222030 Order Status: Completed Lab Status: Final result Updated: 07/26/221425 Specimen: URINE, VOIDED S. PNEUMONIAE URINARY AG NEGATIVE Comment: PRESUMPTIVE NEGATIVE FOR PNEUMOCOCCAL PNEUMONIA, SUGGESTING NO CURRENT OR RECENT PNEUMOCOCCAL INFECTION. INFECTION DUE TO STREPTOCOCCUS PNEUMONIA CANNOT BE RULED OUT SINCE THE ANTIGEN PRESENT IN THE SAMPLE MAY BELOW THE DETECTION LIMIT OF THE TEST. Specimen Type URINE VOIDED MRSA PCR nares Screening [[id number]] Collected: 07/25/222030 Order Status: Canceled Lab Status: No result Specimen: NASAL CULTURE, BACTERIA, BLOOD [[id number]] Collected: 07/25/221416 Order Status: Completed Lab Status: Final result Updated: 07/30/222144 Specimen: BLOOD Spec. Description BLOOD Special Requests: NO SPECIAL REQUEST Culture Result: NO GROWTH 5 DAYS CULTURE, BACTERIA, BLOOD [[id number]] Collected: 07/25/22 141 Order Status: Completed Lab Status: Final result Updated: 07/30/222144 Specimen: BLOOD Spec. Description BLOOD Special Requests: BLOOD-AEROBIC BOTTLE ONLY Culture Result: NO GROWTH 5 DAYS Radiology MEDICATIONS Scheduled medications ??? cefepime 2 g Intravenous Q12H ??? enoxaparin 40 mg Subcutaneous Nightly (enoxaparin) ??? FLUoxetine 20 mg Oral Daily ??? gabapentin 300 mg Oral BID ??? ipratropium-albuterol 1 puff Inhalation Q4H ??? lidocaine 1 patch Transdermal Q24H ??? metroNIDAZOLE 500 mg Oral 3 times per day ??? normal saline 3-10 mL Intravenous Q8H ??? polyethylene glycol 17 g Oral BID ??? sterile talc 8 g Intrapleural Once ??? traZODone 100 mg Oral Nightly at bedtime ??? vancomycin 1,000 mg Intravenous Q12H ??? vancomycin pharmacy to dose Intravenous See Admin Instructions Infusion PRN acetaminophen, albuterol sulfate HFA, alteplase, calcium carbonate, HYDROcodone- acetaminophen, influenza virus vaccine (QUAD), lidocaine, LORazepam, morphine, normal saline, ondansetron, senna-docusate, sodium chloride ASSESSMENT /PLAN Ray Phillips is a 67-year-old male with the following history as recorded in [facility]: Problem List Items Addressed This Visit None PLAN: Acute Hypoxic Respiratory Failure??-improved on 2 L Will need home O2 eval likely oxygen at discharge ?? Copd exacerbation improved on combivent o2 ??Necrotizing pneumonia of right lower lobe??with empyema?? 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 Small pericardial effusion on echo ?? Chronic anemia needing transfusion hh lower monitor - may need transfusion again hemoglobin is 7- likely some blood loss from recent surgery illness type and screen ordered ?? Chronic back pain Anxiety/depression History of tobacco abuse Chronic compression fracture of L3 Lumbar spondylosis History of back trauma ?dvtp resumed lovenox ?? Seen this morning chest pain Improving no respitory distress tolerating antibiotics without diarrhea ? Awaiting chest tube removal ,final recs per ID once cultures available and further clinical improvement and possibly need blood transfusion tomorrow LANRE WINTER MD 2:41 PM 08/05/2022 APEUTIC SPECIALIST * Karla De Yash, PLANNING ADVISOR - 08/05/2022 12:19 PM CST PT Treatment Discharge Recommendation: home with assistance for IADL's Activity Recommendation for configuration management specialist: defer to nursing-PT signing off 08/05/22 0850 Therapy Visit Ordering Provider Tracy Yo MD Subjective Upon entering room 742, patient was in supine and agreeable to therapy. Reason for admission Update: Pt had VATS with R decorication on 08/02 with R chest tube placement (CT to suction). Discussed with Ana MOYA who okayed lead technical writer proceed with POC. Pt is a 67 yo male who presents with SOB, PNA, hydropneumothorax, and loculated effusions. Pt may requires chest tube placeme nt.....PMH:chronic back pain due to back trauma 20 years ago, anxiety/depression, tobacco abuse....Eval and tx, activity as tolerated Verified Two Patient Identifiers Yes Patient consents to therapy Yes Acute Inpatient PT Time Calculation PT Start Time 0850 PT Stop Time 0920 PT Time Calculation (min) 30 min Precautions General Precautions Bed Alarm;Chair Alarm;Multiple lines;Fall Risk Instructed on Precautions Yes;Verbalizes understanding;Needs reinforcement and education Other tele, chest tube to wall suction, 2L O2, IV Home Living Home Living Comments Per eval, pt lives with in a 1 with no PRANAY. Pt has a walk in shower with shower chair, and gbs. Pt has a tall toilet with sink closeby. Pt has a 2ww, and cane but was notusing at home. 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 Pt reports he was noton home O2, and no falls. Activity Tolerance Activity Tolerance Comments improving Cognition Overall Cognitive Status WFL Arousal/Alertness Appropriate responses to stimuli Attention Span Appears intact Memory Appears intact Orientation Level Oriented X4 Following Commands Follows all commands and directions without difficulty Safety Judgment Decreased awareness of need for safety Awareness of Errors Good awareness of errors made Deficits Fully aware of deficits Problem Solving Able to problem solve independently Bed Mobility Supine to Sit Independent TRANSFERS Sit to Stand Independent Bed to Chair Modified independence Other (Comment) Toilet transfer, mod I with grab bars Gait Gait Assistance Modified independence Assistive Device 2 Wheeled walker Distance Ambulated (ft) 300 ft Other (Comment) Patient demonstrates good pace, step through gait, very forward flexed posture (chronic), and no LOB. Balance Sitting - Static Independent Sitting - Dynamic Independent Standing - Static Modified independence Standing - Dynamic Modified independence Other (Comment) no LOB PT Assessment PT Assessment Patient tolerated treatment session well this date as patient demonstrates mod I [id number]. Wayne has met all acute PT goals at this time and PT will sign off. Patient can return home with assistance as needed for IADL's. Recommendation PT Recommendation Home with assistance Plan Progress Discontinue PT PT - Next Appointment 08/05/22 If this is the last treatment note,it will serve as the discharge summary Yes End of Session End of Session Safety Call light within reach;Chair alarm set/activated;Nursing aware of session Education: Primary Learners Name: Ray Phillips Primary Language of learner: Angolan Patient was educated on transfers balance therapy plan gait safety. Education was completed one to one verbal hands-on demonstration this date. Preference of learning new concepts one to one verbal hands-on demonstration Barriers to education this date were none. Response to education this date verbalized understanding. APEUTIC SPECIALIST * Patel Kelsey MD - 08/05/2022 11:31 AM CST [facility]??PROGRESS??NOTE ?? Reason for Admission:?Respiratory failure (CMS/HCC) ?? Reason for Consult:??Respiratory failure, necrotizing pneumonia,??possible loculated??effusion??- empyema or abscess vs bronchopleural fistula ? ASSESSMENT/PLAN Ray Phillips??is a 67-year-old??male, with history of??chronic back pain,??50-pk year history smoking??who presented??with worsening shortness of breath over??2-3 week period. Present[address] with CT imaging concerning for loculated fluid collection in right posterior pleural cavity - pneumonia vs empyema or abscess vs bronchopleural fistula. Concern for malignancy as well given history of asbestos exposure, smoking history, and family history of lung cancer. [facility] ID and CT surgery as consulting services as well.??Oxygenation has improved post chest tube placement.??CT surgery performed VATS with right decortication 08/02. ?? [facility] consulted for??above. ?? Problem List:?? Acute hypoxic respiratory failure Probable COPD? Necrotizing pneumonia of right lower lobe Loculated right pleural effusion Possible??Pulmonary edema Small pericardial effusion Splenomegaly Acute blood loss anemia? History of tobacco abuse ?? Active workup:?? CT imaging reviewed. 08/01 - Labs reviewed, Hgb 8.6, WBC 11.1 Procalcitonin 1.83?? Sputum cultures with??presumptive tete albicans ?? [facility] Plan/ Recommendations: -??S/p Chest tube placement 07/27/22. Pleural fluid cx with rare staph epi, and anaerobic cx with few microaerophilic strep. Exudative fluid with LDH >4000. Likely empyema. - Bronchoscopy completed 07/30. BAL??and bronch wash cx growing yeast.??Possible contaminant. - Repeat CT 07/31 appeared??to still have loculated collection, hydropneumothorax, so??VATS decortication done 08/02. Patient tolerated well. Chest tube to -[address] on 08/04/22 with small R fluid collection, noted CTS reviewed and likely not amenable to tube placement. - Will need home O2 eval prior to discharge. Can follow with Dr. Pineda in [facility] after discharge ([phone]). - ID following for antibiotics management. ?? Thank you for the consult. We will continue to follow. Patel Kelsey MD 08/05/2022 SUBJECTIVE Patient doing well this morning. He wants to go home and is tired of the hospital. He has no shortness of breath on current oxygen. No fever or chills. No leg swelling. Review of Systems All other systems reviewed and are negative. OBJECTIVE Vitals: Filed Vitals: 08/04/22 2140 08/05/22 0129 08/05/22 0130 08/05/22 0500 BP: 115/56 110/63 119/71 Pulse: 85 64 65 Resp: Temp: 100.6 ??F (38.1 ??C) 98 ??F (36.7 ??C) 98.1 ??F (36.7 ??C) TempSrc: Oral Oral Oral SpO2: 94% 93% 97% Weight: Height: Physical Exam Constitutional: General: He is not in acute distress. Appearance: Normal appearance. He is normal weight. HENT: Head: Normocephalic and atraumatic. Mouth/Throat: Mouth: Mucous membranes are moist. Eyes: General: No scleral icterus. Extraocular Movements: Extraocular movements intact. Cardiovascular: Rate and Rhythm: Normal rate and regular rhythm. Pulses: Normal pulses. Heart sounds: Normal heart sounds. Pulmonary: Effort: Pulmonary effort is normal. No respiratory distress. Breath sounds: No wheezing. Comments: Chest tube in place right side. Breath sounds diminished right middle and lower lobe. Abdominal: General: Bowel sounds are normal. Palpations: Abdomen is soft. Musculoskeletal: Right lower leg: No edema. Left lower leg: No edema. Skin: General: Skin is warm and dry. Neurological: General: No focal deficit present. Mental Status: He is alert and oriented to person, place, and time. Psychiatric: Mood and Affect: Mood normal. Behavior: Behavior normal. Medications: ??? cefepime 2 g Intravenous Q12H ??? enoxaparin 40 mg Subcutaneous Nightly (enoxaparin) ??? FLUoxetine 20 mg Oral Daily ??? gabapentin 300 mg Oral BID ??? ipratropium-albuterol 1 puff Inhalation Q4H ??? lidocaine 1 patch Transdermal Q24H ??? metroNIDAZOLE 500 mg Oral 3 times per day ??? normal saline 3-10 mL Intravenous Q8H ??? polyethylene glycol 17 g Oral BID ??? potassium chloride 40 mEq Oral Once ??? sterile talc 8 g Intrapleural Once ??? traZODone 100 mg Oral Nightly at bedtime ??? vancomycin 1,000 mg Intravenous Q12H ??? vancomycin pharmacy to dose Intravenous See Admin Instructions PRN: acetaminophen, albuterol sulfate HFA, alteplase, calcium carbonate, HYDROcodone- acetaminophen, influenza virus vaccine (QUAD), lidocaine, LORazepam, morphine, normal saline, ondansetron, senna-docusate, sodium chloride Allergies Allergen Reactions ??? Motrin [Ibuprofen] Shortness of Breath ??? Nsaids Shortness of Breath and GI Upset ??? Prednisone Shortness of Breath Intake/Output Summary (Last 24 hours) at 08/05/2022 1131 Last data filed at 08/05/2022 0620 Gross per 24 hour Intake -- Output 730 ml Net -730 ml Labs: Recent Labs Lab 07/31/22 0941 08/01/22 0242 08/03/2222108/04/22 0234 08/05/22210 WBC 16.2* 11.1* 11.0* 8.5 6.6 RBC 3.07* 2.58* 2.84* 2.39* 2.17* HGB 10.1* 8.6* 9.2* 7.6* 7.0* HCT 31.0* 26.4* 28.9* 24.4* 22.0* MCV 101.0* 102.3* 101.8* 102.1* 101.4* MCH 32.9* 33.3* 32.4* 31.8* 32.3* MCHC 32.6* 32.6* 31.8* 31.1* 31.8* PLT 277 246 216 178 185 RDW 15.3* 15.4* 15.1* 14.8* 14.7* NEUC 14.00* 8.96* 8.98* 6.33 4.78 LYMC 1.26 1.27 0.81 1.11 1.03 MONOC 0.59 0.60 1.00 0.85 0.68 EOSC 0.01 0.12 0.12 0.14 0.10 BASOC 0.02 0.01 0.01 0.01 0.01 Recent Labs Lab 07/31/22 1113 08/01/22 0242 08/01/22 1131 08/03/22 0222 08/04/22 02308/05/22210 NA 137 140 138 136 137 136 K 3.6 3.4* 3.9 3.8 3.7 3.4* CL 104 107 107 102 103 104 CO2 27.8 27.2 24.1 28.4 28.6 27.9 BUN 20* 19* 16 11 12 11 CR 0.74 0.77 0.70 0.75 0.62* 0.58* GLU 106 145* -- 109* 106 114* CA 8.1* 8.1* 7.9* 8.0* 7.9* 7.9* TP 5.6* 5.0* -- 5.4* 5.0* 4.9* ALB 1.9* 1.7* -- 1.9* 1.6* 1.5* TBIL 0.3 0.4 -- 0.6 0.6 0.4 ALKP 54 50 -- 49 41* 39* AST 8* 8* -- 11* 11* 8* ALT 15* 14* -- 13* 11* 8* Recent Imaging: Radiology Results (Last 48 hours) 08/05/22 0552 XR CHEST PA OR AP 1V Final result Impression: IMPRESSION: Unchanged appearance of the chest when compared with the radiograph exam from yesterday. Ordered By: EDVIN POLLACK Interpreted By: Antonio Hill MD, 08/05/2022 7:35 AM 08/04/[address] CHEST WO CON Final result Impression: IMPRESSION: 1. Interval decrease in size of right hydropneumothorax with small residual right pleural effusion. Chest tube replacement. No pneumothorax. 2. Interval development of a probable new loculated pleural effusion along the right lower lung. Unchanged appearance of a right upper lobe loculated pleural effusion. Unchanged small to moderate left pleural effusion is also present. 3. Hazy pulmonary opacities within the left lung favored to represent atelectasis and/or pulmonary edema although pneumonia cannot be excluded. Left lower lobe airway impaction. 4. Cardiomegaly. Scattered smooth interlobular septal thickening likely representing mild fluid overload. 5. Mild centrilobular emphysema 6. Cholelithiasis without cholecystitis. 7. Fractures of the right 10th and 12th ribs. 8. Large hiatal hernia with refluxed gastric contents. The attending radiologist has reviewed the image(s) and agrees with the content of this report. Ordered By: PATEL KELSEY Interpreted By: Ulisses Arcos, 08/04/2022 3:35 PM 08/04/22 0527 XR CHEST PA OR AP 1V Final result Impression: IMPRESSION: ======== 1. Increasing size of tiny right effusion with scattered right lower lung increasing infiltrates. Improving effusion on the left. Referred By: PROVIDER NON-STAFF Interpreted By: Mitch Carpenter MD, 08/04/2022 6:43 AM Cosigned by Katie Paula MD at 08/05/2022 1:52 PM THERAPEUTIC SPECIALIST APEUTIC SPECIALIST APEUTIC SPECIALIST Associated attestation - Katie Paula MD - 08/05/2022 1:52 PM THERAPEUTIC SPECIALIST [facility] Attending Note: I reviewed with the resident the medical history and the resident???s findings on physical examination. I reviewed the patient's labs, and imaging studies. I discussed with the resident the patient???s diagnosis and concur with the treatment plan as documented in the resident note. Repeat CT 08/04 reviewed, noted CTS reviewed and likely not amenable to tube placement. Spoke to patient and his in the room, all questions were answered to their satisfaction. Thank you for the consult * Ceci Sol MD - 08/05/2022 10:49 AM CST Daily Progress Note Ceci Sol MD General Surgery Resident ID: Ray Phillips is a 67-year-old male : 1955 LOS: 11 ASSESSMENT/PLAN 67 year-old male with R parapneumonic effusion s/p R chest tube placement and TPA infusion by IR on07/27. S/p R VATS decortication on 08/02. - VSS, on 2L O2 - low grade fever overnight - CT reviewed, new fluid loculations noted which are small and unlikely amenable to drainage at this time - Continue chest tube to -20 suction Attending: Dr. Lemos for Dr. Blackburn SUBJECTIVE: Endorses feeling improved today. Denies dyspnea or chest pain. Medications: Current Facility-Administered Medications: ??? acetaminophen (TYLENOL) tablet 650 mg, 650 mg, Oral, Q4H PRN, Tracy Yo MD, 650 mg at 08/04/22 2228 ??? albuterol sulfate HFA 108 (90 Base) MCG/ACT inhaler 2 puff, 2 puff, Inhalation, Q4H PRN, Tracy Yo MD ??? alteplase (CATHFLO) injection, , , Code/Trauma/Sedation Med, Raul Osuna MD, 2 mg at 07/27/22 1034 ??? calcium carbonate (TUMS) chewable tablet 500 mg, 500 mg, Oral, Daily PRN, Lanre Winter MD, 500 mg at 08/04/22 1447 ??? ceFEPIme (MAXIPIME) 2 g in sodium chloride (PF) 0.9 % 10 mL IV, 2 g, Intravenous, Q12H, Tracy Yo MD, 2 g at 08/05/22 0500 ??? enoxaparin (LOVENOX) 40 MG/0.4ML syringe 40 mg, 40 mg, Subcutaneous, Nightly (enoxaparin), Lanre Winter MD, 40 mg at 08/04/22 2036 ??? FLUoxetine (PROzac) capsule 20 mg, 20 mg, Oral, Daily, Tracy Yo MD, 20 mg at 08/05/22 0949 ??? gabapentin (NEURONTIN) capsule 300 mg, 300 mg, Oral, BID, Tracy Yo MD, 300 mg at 08/05/22 0949 ??? HYDROcodone-acetaminophen (NORCO) 10-325 MG tablet 1 tablet, 1 tablet, Oral, Q6H PRN, Tracy Yo MD, 1 tablet at 08/05/22 0953 ??? influenza virus vaccine (QUAD) injection 0.5 mL, 0.5 mL, Intramuscular, Once PRN, Florencio Amaya MD ??? ipratropium-albuterol (COMBIVENT RESPIMAT) 20-100 MCG/ACT inhaler 1 puff, 1 puff, Inhalation, Q4H, Lanre Winter MD, 1 puff at 08/05/22 0954 ??? lidocaine (XYLOCAINE) 1 % injection SOLN, , , Code/Trauma/Sedation Med, Raul Osuna MD, 8 mLat 07/27/22 1016 ??? lidocaine 4 % patch 1 patch, 1 patch, Transdermal, Q24H, Raquel Wetzel MD, 1 patch at 08/05/22 0500 ??? LORazepam (ATIVAN) tablet 1 mg, 1 mg, Oral, BID PRN, Tracy Yo MD, 1 mg at 08/05/22 0953 ??? metroNIDAZOLE (FLAGYL) tablet 500 mg, 500 mg, Oral, 3 times per day, Paulina Dale NP, 500 mg at 08/05/22 0501 ??? morphine (MSIR) tablet 30 mg, 30 mg, Oral, Q8H PRN, Tracy Yo MD, 30 mg at 08/05/22 0500 ??? normal saline 0.9 % flush 3-10 mL, 3-10 mL, Intravenous, Q8H, JOSEPH Whitehead, 10 mL at 08/05/22 0949 ??? normal saline 0.9 % flush 3-10 mL, 3-10 mL, Intravenous, PRN, JOSEPH Whitehead, 10 mL at 08/02/22 1833 ??? ondansetron (ZOFRAN) injection 4 mg, 4 mg, Intravenous, Q8H PRN, Tracy Yo MD ??? polyethylene glycol (GLYCOLAX) packet 17 g, 17 g, Oral, BID, JOSEPH Whitehead, 17 g at 08/05/22 0949 ??? potassium chloride CR (KLOR-CON M) tablet 40 mEq, 40 mEq, Oral, Once, Lanre Winter MD ??? senna-docusate (SENOKOT-S) 8.6-50 MG tablet 1 tablet, 1 tablet, Oral, Nightly PRN, JOSEPH Whitehead, 1 tablet at 08/05/22 0503 ??? sodium chloride (OCEAN) 0.65 % nasal spray 1 spray, 1 spray, Each Nostril, PRN, Tracy Yo MD, 1 spray at 07/25/22 2305 ??? sterile talc (STERITALC) powder/slurry 8 g, 8 g, Intrapleural, Once, Ross Blackburn MD ??? traZODone (DESYREL) tablet 100 mg, 100 mg, Oral, Nightly at bedtime, Tracy Yo MD, 100 mg at 08/04/222036 ??? vancomycin 1000 mg in NS 250 mL IVPB, 1,000 mg, Intravenous, Q12H, Florencio Amaya MD, Stopped at 08/05/22 0600 ??? Pharmacy to dose vancomycin, , , Once AND vancomycin pharmacy to dose placeholder, , Intravenous, See Admin Instructions, Tracy Yo MD Scheduled Meds: ??? cefepime 2 g Intravenous Q12H ??? enoxaparin 40 mg Subcutaneous Nightly (enoxaparin) ??? FLUoxetine 20 mg Oral Daily ??? gabapentin 300 mg Oral BID ??? ipratropium-albuterol 1 puff Inhalation Q4H ??? lidocaine 1 patch Transdermal Q24H ??? metroNIDAZOLE 500 mg Oral 3 times per day ??? normal saline 3-10 mL Intravenous Q8H ??? polyethylene glycol 17 g Oral BID ??? potassium chloride 40 mEq Oral Once ??? sterile talc 8 g Intrapleural Once ??? traZODone 100 mg Oral Nightly at bedtime ??? vancomycin 1,000 mg Intravenous Q12H ??? vancomycin pharmacy to dose Intravenous See Admin Instructions Continuous Infusions: PRN Meds: acetaminophen, albuterol sulfate HFA, alteplase, calcium carbonate, HYDROcodone-acetaminophen, influenza virus vaccine (QUAD), lidocaine, LORazepam, morphine, normal saline, ondansetron, senna-docusate, sodium chloride OBJECTIVE Vital signs in the last 24 hours: Vitals: 08/05/22 0500 BP: 119/71 Pulse: 65 Resp: 14 Temp: 98.1 ??F (36.7 ??C) SpO2: 97% Intake/Output last 3 shifts: I/O last 3 completed shifts: In: - Out: 730 [Urine:700; Chest Tube:30] Intake/Output this shift: No intake/output data recorded. Today's Weight: Last Recorded Weight 11/04/17 1300 Weight: 2344 g (5 lb 2.7 oz) Yesterday's Weight: Wt Readings from Last 1 Encounters: 11/04/17 2344 g (5 lb 2.7 oz) Weight change in the last 24 hours: an appropriate measurement is not found Examination: General: NAD Lungs: easy respirations, symmetric chest rise. On 2L NC. Right sided pigtail chest tube in place Heart: regular rate and rhythm Neuro: AAOx3, no focal deficits Psych: appropriate mood and affect Labs and Cultures: CBC Lab Results Component Value Date/Time WBC 6.6 08/05/2022 02:11 AM Lab Results Component Value Date/Time RBC 2.17 (L) 08/05/2022 02:11 AM Lab Results Component Value Date/Time HGB 7.0 (L) 08/05/2022 02:11 AM Lab Results Component Value Date/Time HCT 22.0 (L) 08/05/2022 02:11 AM Cosigned by Brent Lemos MD at 08/05/2022 11:35 AM THERAPEUTIC SPECIALIST APEUTIC SPECIALIST APEUTIC SPECIALIST * Ann Mcdonnell, PharmD - 08/05/2022 10:42 AM CST Vancomycin Pharmacokinetic Progress Note Day 11 of therapy Ray Phillips is a 67-year-old male for which pharmacy has been consulted to dose vancomycin for empyema with pleural fluid growing Staphylococcus Epidermidis. Other antibiotics ordered include azithromycin 500 mg IV Q24H (07/25-07/29), cefepime 2 mg IV Q12H (07/25-) and metronidazole 500 mg Q8H (07/30-) Historical vancomycin use: vancomycin 1000 mg x1 07/23/22 @2330 Allergies: Allergies Allergen Reactions ??? Motrin [Ibuprofen] Shortness of Breath ??? Nsaids Shortness of Breath and GI Upset ??? Prednisone Shortness of Breath Height: 5' 5 (1.651 m) Weight: 67.5 kg (148 lb 12.8 oz) Body mass index is 24.76 kg/m??. Temp (24 hr max): Temp Av.9 ??F (37.2 ??C) Min: 98 ??F (36.7 ??C) Max: 100.6 ??F (38.1 ??C) Today's labs and vitals: Lab Results Component Value Date/Time WBC 6.6 08/05/2022 02:11 AM WBC 8.5 08/04/2022 02:34 AM WBC 11.0 (H) 08/03/2022 02:22 AM WBC 11.1 (H) 08/01/2022 02:42 AM WBC 16.2 (H) 07/31/2022 09:41 AM Lab Results Component Value Date/Time CR 0.58 (L) 08/05/2022 02:11 AM CR 0.62 (L) 08/04/2022 02:34 AM CR 0.75 08/03/2022 02:22 AM CR 0.70 08/01/2022 11:31 AM CR 0.77 08/01/2022 02:42 AM CrCl = estimated creatinine clearance is 110.5 mL/min (A) (based on SCr of 0.58 mg/dL (L)). Intake/Output Summary (Last 24 hours) at 08/05/2022 1042 Last data filed at 08/05/2022 0620 Gross per 24 hour Intake -- Output 730 ml Net -730 ml Pertinent Cultures: Date Drawn Site Organism Pertinent Sensitivity 07/25 BCX 2/2 NGTD Strep PNU Urine Negative 07/28 Sputum GPC GNR Alpha Strep 07/29 Sputum Alpha Strep, moderate presuptive CA 07/30 Bronch wash Many neutrophils, culture pending yeast 07/27 (last updated 07/31) Pleural fluid Staph epi Sensitive to clindamycin, erythromycin, gentamicin, oxacillin, rifampin, tetracycline, and vancomycin 07/27 (last updated 08/01) Pleural fluid Microaerophilic strep Sensitive to cefotaxime and Penicillin G 08/02 tissue ngtd No pertinent past Epic positive culture history Levels: Date Time Level AUC Dose Comments 07/28 0703 7 336 1.75 gm x1 1.25 gm x2 24h 3m 07/30 0617 24.4 464 1.75 gm x1 1.25 gm x2 1.00 gm x4 3h 55m 08/01 1131 18.7 535 1.75 gm x1 1.25 gm x2 1.00 gm x8 8 h 50 m Assessment: Ray Phillips is a 67-year-old male who is currently receiving vancomycin. AUC goal is 400 - 600 Current AUC level is Therapeutic Renal function is Stable [facility] ID is consulted Plan: Antibiotic Plan: Continue scheduled dosing with 1000 mg q12h (est. AUC of 508) Next level due: Monday 08/06 w/ AM labs Pharmacy will continue to follow cultures, clinical status, and appropriateness of therapy. Thank you for the consult. Pharmacy Consult per Dr. Srinath MCDONNELL [facility] Phone: [phone] 08/05/2022 10:42 AM APEUTIC SPECIALIST * Lanre Winter MD - 08/04/2022 3:33 PM CST Progress note CC:- f/u of empyema, resp failure, pneumonia SUBJECTIVE Patient seen and examined. Sitting in chair denies chest pain fever, cough sob anxious about going home OBJECTIVE Wt Readings from Last 3 Encounters: 07/28/22 67.5 kg (148 lb 12.8 oz) Temp: 98.2 ??F (36.8 ??C) BP Readings from Last 3 Encounters: 08/04/22 107/61 Pulse Readings from Last 3 Encounters: 08/04/22 69 Review of Systems Constitutional: Negative for chills, fever and weight loss. HENT: Negative for congestion and ear pain. Eyes: Negative for blurred vision and double vision. Respiratory: Negative for cough, hemoptysis, sputum production, shortness of breath and wheezing. Cardiovascular: Negative for chest pain, palpitations, orthopnea, leg swelling and PND. Gastrointestinal: Negative for abdominal pain, blood in stool, nausea and vomiting. Genitourinary: Negative for dysuria, flank pain and hematuria. Musculoskeletal: Negative for back pain, joint pain and neck pain. Skin: Negative for rash. Neurological: Negative for speech change, focal weakness and loss of consciousness. Endo/Heme/Allergies: Negative for polydipsia. Psychiatric/Behavioral: Negative for depression and suicidal ideas. The patient is not nervous/anxious. All other systems reviewed and are negative. PHYSICAL EXAMINATION: Physical Exam Vitals and nursing note reviewed. Constitutional: Appearance: He is ill-appearing. HENT: Head: Normocephalic. Eyes: General: No scleral icterus. Conjunctiva/sclera: Conjunctivae normal. Pupils: Pupils are equal, round, and reactive to light. Neck: Vascular: No JVD. Cardiovascular: Rate and Rhythm: Normal rate and regular rhythm. Pulses: Normal pulses. Heart sounds: No murmur heard. Pulmonary: Effort: Pulmonary effort is normal. No accessory muscle usage or respiratory distress. Breath sounds: Normal breath sounds. No wheezing. Abdominal: General: Bowel sounds are normal. There is no distension. Palpations: Abdomen is soft. There is no mass. Tenderness: There is no abdominal tenderness. There is no guarding or rebound. Musculoskeletal: General: Normal range of motion. Cervical back: Normal range of motion and neck supple. Skin: Findings: No erythema or rash. Neurological: Mental Status: He is alert and oriented to person, place, and time. Cranial Nerves: No cranial nerve deficit. Coordination: Coordination normal. Psychiatric: Mood and Affect: Mood and affect normal. LABS: Recent Labs 08/03/2222108/04/22 0234 WBC 11.0* 8.5 HGB 9.2* 7.6* HCT 28.9* 24.4* MCV 101.8* 102.1* PLT 216 178 RBC 2.84* 2.39* Recent Labs 08/03/2222108/04/22 0234 ALT 13* 11* AST 11* 11* CO2 28.4 28.6 CL 102 103 GLU 109* 106 K 3.8 3.7 NA 136 137 BUN 11 12 Intake/Output Summary (Last 24 hours) at 08/04/2022 1533 Last data filed at 08/04/2022 0700 Gross per 24 hour Intake -- Output 375 ml Net -375 ml Microbiology Results (last 14 days) Procedure Component Value Units Date/Time CULTURE, ANAEROBIC [[id number]] Collected: 08/02/22837 Order Status: Completed Lab Status: Preliminary result Updated: 08/03/22 1524 Specimen: TISSUE from OTHER (type in comments) Spec. Description TISSUE: RT DECORTICATION TISU Special Requests: NO SPECIAL REQUEST Culture Result: -- NO ANAEROBES ISOLATED TO DATE CULTURE TB/AFB OTHER (TYPE IN COMMENTS) [[id number]] Collected: 08/02/22837 Order Status: Sent Lab Status: In process Updated: 08/02/22 1009 Specimen: TISSUE from OTHER (type in comments) CULTURE, FUNGUS [[id number]] Collected: 08/02/22837 Order Status: Sent Lab Status: In process Updated: 08/02/22 1010 Specimen: TISSUE from OTHER (type in comments) CULTURE, TISSUE W/GRAM STAIN [[id number]] Collected: 08/02/22837 Order Status: Completed Lab Status: Preliminary result Updated: 08/03/22 1525 Specimen: TISSUE from OTHER (type in comments) Spec. Description TISSUE: RT DECORTICATION TISU Special Requests: NO SPECIAL REQUEST Gram Stain Result -- MODERATE NEUTROPHILS SEEN Gram Stain Result NO ORGANISMS SEEN Culture Result: NO GROWTH 1 DAY SMEAR,FLUOR STAIN,ACID FAST [[id number]] Collected: 08/02/22837 Order Status: No result Lab Status: In process Updated: 08/02/22 1012 CULTURE, FUNGUS [[id number]] Order Status: No result Lab Status: No result Specimen: BRONCHOALVEO LAV, RT LWR CULTURE TB/AFB OTHER (TYPE IN COMMENTS) [[id number]] Order Status: No result Lab Status: No result Specimen: BRONCHOALVEO LAV, RT LWR SMEAR,FLUOR STAIN,ACID FAST [[id number]] Order Status: No result Lab Status: No result Specimen: BRONCHOALVEO LAV, RT LWR CULTURE VIRAL RESPIRATORY RAPID [[id number]] Order Status: No result Lab Status: No result Specimen: BRONCHOALVEO LAV, RT LWR CULTURE RESPIRATORY W/ GRAM STAIN [[id number]] Order Status: No result Lab Status: No result Specimen: BRONCHIAL WASHING CULTURE, FUNGUS [[id number]] Order Status: No result Lab Status: No result Specimen: BRONCHIAL WASHING CULTURE TB/AFB OTHER (TYPE IN COMMENTS) [[id number]] Order Status: No result Lab Status: No result Specimen: BRONCHIAL WASHING SMEAR,FLUOR STAIN,ACID FAST [[id number]] Order Status: No result Lab Status: No result Specimen: BRONCHIAL WASHING CULTURE VIRAL RESPIRATORY RAPID [[id number]] Order Status: No result Lab Status: No result Specimen: BRONCHIAL WASHING CULTURE, QUANTITATIVE W/ GRAM STAIN [[id number]] Order Status: No result Lab Status: No result Specimen: BRONCHOALVEO LAV, RT LWR CULTURE, FUNGUS [[id number]] Collected: 07/30/221529 Order Status: No result Lab Status: In process Updated: 07/30/22 1701 CULTURE RESPIRATORY W/ GRAM STAIN [[id number]] Collected: 07/30/221529 Order Status: Completed Lab Status: Final result Updated: 08/03/22 1228 Specimen: SITE Spec. Description SITE: BRONCH WASH Special Requests: NO SPECIAL REQUEST Gram Stain Result -- MANY NEUTROPHILS SEEN Gram Stain Result NO ORGANISMS SEEN Culture Result: -- FEW TETE ALBICANS SMEAR,FLUOR STAIN,ACID FAST [[id number]] Collected: 07/30/221529 Order Status: Completed Lab Status: Final result Updated: 08/01/22 2318 ACID FAST SMEAR RESULT SEE NOTE 08/01/2022 11:18 PM Comment: Test Result Flag Unit RefValue Acid Fast Smear For Mycobacterium SOURCE: BRONCHIAL WASHING, BWASH/BAL MIX ACID FAST SMEAR FOR MYCOBACTERIUM FINAL Negative. Test Performed by: [address] [address] Counter Cutter: Brent Alcaraz M.D. Ph.D.; CLIA# [id number] CULTURE TB/AFB OTHER [[id number]] Collected: 07/30/221529 Order Status: No result Lab Status: In process Updated: 07/30/22 1704 CULTURE, QUANTITATIVE W/ GRAM STAIN [[id number]] Collected: 07/30/221529 Order Status: Completed Lab Status: Final result Updated: 08/02/22 1457 Specimen: SITE Spec. Description SITE: BAL RLL Special Requests: NO SPECIAL REQUEST Gram Stain Result <10 NEUTROPHILS PER LPF Gram Stain Result <10 EPITHELIAL CELLS PER LPF Gram Stain Result -- RARE GRAM NEGATIVE RODS Culture Result: -- 500 CFU/ML YEAST , ID UPON REQUEST CULTURE, FUNGUS [[id number]] Collected: 07/30/221529 Order Status: Canceled Lab Status: No result SMEAR,FLUOR STAIN,ACID FAST [[id number]] Collected: 07/30/221529 Order Status: Canceled Lab Status: No result CULTURE TB/AFB OTHER [[id number]] Collected: 07/30/221529 Order Status: Canceled Lab Status: No result CULTURE CMV [[id number]] Collected: 07/30/221529 Order Status: No result Lab Status: In process Updated: 07/31/22 1431 CULTURE HERPES [[id number]] Collected: 07/30/221529 Order Status: Completed Lab Status: Final result Updated: 08/03/22 1542 HERPES SIMPLEX VIRUS CULTURE REPORT Comment: Herpes Simplex Virus Culture SOURCE : BAL/BWASH MIX IN RESULT Not Isolated Reference Range: Not Isolated Test Performed by [facility], [address] [place] [address] Adrián Balderas M.D., Ph.D., Director of Laboratories , CLIA [id number] Specimen Type BAL/BWASH MIX IN VTM 1 TO 1 RATIO, FRZ NEG 70 CULTURE VIRAL RESPIRATORY RAPID [[id number]] Collected: 07/30/221529 Order Status: No result Lab Status: In process Updated: 07/31/22 1435 CULTURE RESPIRATORY W/ GRAM STAIN [[id number]] Collected: 07/28/221424 Order Status: Completed Lab Status: Final result Updated: 07/31/22 0847 Specimen: SPUTUM, EXPECTORATED Spec. Description SPUTUM, EXPECTORATED Special Requests: NO SPECIAL REQUEST Gram Stain Result >25 NEUTROPHILS PER LPF Gram Stain Result <10 EPITHELIAL CELLS PER LPF Gram Stain Result -- RARE BUDDING YEAST CELLS Gram Stain Result -- RARE GRAM POSITIVE COCCI IN PAIRS Gram Stain Result -- RARE GRAM NEGATIVE RODS Culture Result: -- FEW ALPHA STREPTOCOCCUS Culture Result: -- MODERATE PRESUMPTIVE TETE ALBICANS CULTURE, FUNGUS [[id number]] Collected: 07/28/221424 Order Status: Sent Lab Status: In process Updated: 07/31/22 133 Specimen: SPUTUM, EXPECTORATED CULTURE TB/AFB OTHER (TYPE IN COMMENTS) [[id number]] Collected: 07/28/221424 Order Status: Sent Lab Status: No result Specimen: SPUTUM, EXPECTORATED SMEAR,FLUOR STAIN,ACID FAST [[id number]] Collected: 07/28/221424 Order Status: No result Lab Status: In process Updated: 07/28/22 1612 HISTOPLASMA ANTIGEN [[id number]] Collected: 07/28/221423 Order Status: Sent Lab Status: No result Specimen: BLOOD HISTOPLASMA ANTIGEN [[id number]] Collected: 07/28/221423 Order Status: Canceled Lab Status: No result Specimen: BLOOD GLUCOSE, BODY FLUID [[id number]] Order Status: Canceled Lab Status: No result Specimen: PLEURAL FLUID PH BODY FLUID [[id number]] Order Status: Canceled Lab Status: No result Specimen: PLEURAL FLUID CULTURE, BODY FLUID W/ GRAM STAIN [[id number]] Order Status: Canceled Lab Status: No result Specimen: PLEURAL FLUID CULTURE, ANAEROBIC [[id number]] Order Status: Canceled Lab Status: No result Specimen: PLEURAL FLUID CULTURE, FUNGUS [[id number]] Order Status: Canceled Lab Status: No result Specimen: PLEURAL FLUID LDH BODY FLUID [[id number]] Collected: 07/27/22 1030 Order Status: Completed Lab Status: Final result Updated: 07/27/22 152 Specimen: PLEURAL FLUID FLUID LDH >4,000 UNITS/L Comment: REFERENCE RANGE NOT ESTABLISHED FOR THIS BODY FLUID. SOURCE (FLUID) PLEURAL FLUID CELL COUNT W/ DIFF BODY FLUID [[id number]] Collected: 07/27/221029 Order Status: Completed Lab Status: Final result Updated: 07/27/22 1545 Specimen: PLEURAL FLUID SOURCE (FLUID) PLEURAL FLUID FL WBC 144.450 x10'3/uL Comment: REFERENCE RANGE NOT ESTABLISHED FL RBC 0.090 x10'6/uL Comment: REFERENCE RANGE NOT ESTABLISHED DIFFERENTIAL MANUAL DIFFERENTIAL PERFORMED ON CONCENTRATED CYTOSPIN CELLS COUNTED 100 No COUNTED SEGS (FLUID) 97 % LYMPHS (FLUID) 3 % PROTEIN TOTAL FLUID [[id number]] Collected: 07/27/221029 Order Status: Completed Lab Status: Final result Updated: 07/27/22 1522 Specimen: PLEURAL FLUID PROTEIN (FLUID) 3.5 G/DL Comment: REFERENCE RANGE NOT ESTABLISHED FOR THIS BODY FLUID. SOURCE (FLUID) PLEURAL FLUID CULTURE, BODY FLUID W/ GRAM STAIN [[id number]] Collected: 07/27/221029 Order Status: Canceled Lab Status: No result Specimen: PLEURAL FLUID CULTURE, ANAEROBIC [[id number]] Collected: 07/27/221029 Order Status: Canceled Lab Status: No result Specimen: PLEURAL FLUID CULTURE, BODY FLUID W/ GRAM STAIN [[id number]] (Susceptibility) Collected: 07/27/221029 Order Status: Completed Lab Status: Final result Updated: 07/31/22 0751 Specimen: PLEURAL FLUID Spec. Description PLEURAL FLUID: RT Special Requests: NO SPECIAL REQUEST Gram Stain Result -- MANY NEUTROPHILS SEEN Gram Stain Result NO ORGANISMS SEEN Culture Result: -- RARE STAPHYLOCOCCUS EPIDERMIDIS Susceptibility Staphylococcus epidermidis ARLEN (VITEK) CLINDAMYCIN Sensitive ERYTHROMYCIN Sensitive GENTAMICIN Sensitive OXACILLIN Sensitive PENICILLIN G Resistant RIFAMPIN Sensitive TETRACYCLINE Sensitive TRIMETH-SULFAMETH. Resistant VANCOMYCIN Sensitive CULTURE, ANAEROBIC [[id number]] (Susceptibility) Collected: 07/27/221029 Order Status: Completed Lab Status: Final result Updated: 08/01/22 0826 Specimen: SITE Spec. Description SITE: RT PLEURAL FLUID Special Requests: NO SPECIAL REQUEST Culture Result: -- FEW MICROAEROPHILIC STREPTOCOCCUS Susceptibility Microaerophilic streptococcus ARLEN (ETEST) CEFOTAXIME 0.023 Sensitive PENICILLIN G 0.008 Sensitive BLASTOMYCES AG MVISTA (TM), EIA [[id number]] Order Status: No result Lab Status: No result Specimen: BLOOD BLASTOMYCES AG MVISTA (TM), EIA [[id number]] Order Status: No result Lab Status: No result Specimen: URINE CORONAVIRUS (COVID 19) PCR - Asymptomatic patients, may be completed at physician discretion [[id number]] Collected: 07/25/222031 Order Status: Sent Lab Status: No result Specimen: NASOPHARYNGEAL SWAB STREP PNEUMO AG URINE [[id number]] Collected: 07/25/222030 Order Status: Completed Lab Status: Final result Updated: 07/26/221425 Specimen: URINE, VOIDED S. PNEUMONIAE URINARY AG NEGATIVE Comment: PRESUMPTIVE NEGATIVE FOR PNEUMOCOCCAL PNEUMONIA, SUGGESTING NO CURRENT OR RECENT PNEUMOCOCCAL INFECTION. INFECTION DUE TO STREPTOCOCCUS PNEUMONIA CANNOT BE RULED OUT SINCE THE ANTIGEN PRESENT IN THE SAMPLE MAY BELOW THE DETECTION LIMIT OF THE TEST. Specimen Type URINE VOIDED MRSA PCR nares Screening [[id number]] Collected: 07/25/222030 Order Status: Canceled Lab Status: No result Specimen: NASAL CULTURE, BACTERIA, BLOOD [[id number]] Collected: 07/25/221416 Order Status: Completed Lab Status: Final result Updated: 07/30/222144 Specimen: BLOOD Spec. Description BLOOD Special Requests: NO SPECIAL REQUEST Culture Result: NO GROWTH 5 DAYS CULTURE, BACTERIA, BLOOD [[id number]] Collected: 07/25/221415 Order Status: Completed Lab Status: Final result Updated: 07/30/222144 Specimen: BLOOD Spec. Description BLOOD Special Requests: BLOOD-AEROBIC BOTTLE ONLY Culture Result: NO GROWTH 5 DAYS Radiology MEDICATIONS Scheduled medications ??? cefepime 2 g Intravenous Q12H ??? enoxaparin 40 mg Subcutaneous Nightly (enoxaparin) ??? FLUoxetine 20 mg Oral Daily ??? gabapentin 300 mg Oral BID ??? ipratropium-albuterol 1 puff Inhalation Q4H ??? lidocaine 1 patch Transdermal Q24H ??? metroNIDAZOLE 500 mg Oral 3 times per day ??? normal saline 3-10 mL Intravenous Q8H ??? polyethylene glycol 17 g Oral BID ??? sterile talc 8 g Intrapleural Once ??? traZODone 100 mg Oral Nightly at bedtime ??? vancomycin 1,000 mg Intravenous Q12H ??? vancomycin pharmacy to dose Intravenous See Admin Instructions Infusion PRN acetaminophen, albuterol sulfate HFA, alteplase, calcium carbonate, cyclobenzaprine, HYDROcodone-acetaminophen, influenza virus vaccine (QUAD), lidocaine, LORazepam, morphine, morphine, normal saline, ondansetron, senna- docusate, sodium chloride ASSESSMENT /PLAN Ray Phillips is a 67-year-old male [facility] the [facility] Problem List Items Addressed This Visit None PLAN: Acute Hypoxic Respiratory Failure??- resolved ?? Copd exacerbation improved on combivent o2 ??Necrotizing pneumonia of right lower lobe??with empyema?? 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 Small pericardial effusion on echo ?? Chronic anemia needing transfusion hh lower monitor - may need transfusion again - likely some blood loss from recent surgery illness ?? Chronic back pain Anxiety/depression History of tobacco abuse Chronic compression fracture of L3 Lumbar spondylosis History of back trauma ?dvtp resumed lovenox ?? Seen this afternoon chest pain Improving no respitory distress tolerating antibiotics without diarrhea ? Awaiting chest tube removal final recs per ID once cultures available and further clinical improvement LANRE WINTER MD 3:33 PM 08/04/2022 APEUTIC SPECIALIST * Ann Mcdonnell, PharmD - 08/04/2022 3:28 PM CST Vancomycin Pharmacokinetic Progress Note Day 10 of therapy Ray Phillips is a 67-year-old male for which pharmacy has been consulted to dose vancomycin for pleural fluid growing Staphylococcus Epidermidis. Other antibiotics ordered include azithromycin 500 mg IV Q24H (07/25-07/29), cefepime 2 mg IV Q12H (07/25-) and metronidazole 500 mg Q8H (07/30-) Historical vancomycin use: vancomycin 1000 mg x1 07/23/22 @2330 Allergies: Allergies Allergen Reactions ??? Motrin [Ibuprofen] Shortness of Breath ??? Nsaids Shortness of Breath and GI Upset ??? Prednisone Shortness of Breath Height: 5' 5 (1.651 m) Weight: 67.5 kg (148 lb 12.8 oz) Body mass index is 24.76 kg/m??. Temp (24 hr max): Temp Av.8 ??F (37.1 ??C) Min: 98.2 ??F (36.8 ??C) Max: 100 ??F (37.8 ??C) Today's labs and vitals: Lab Results Component Value Date/Time WBC 8.5 08/04/2022 02:34 AM WBC 11.0 (H) 08/03/2022 02:22 AM WBC 11.1 (H) 08/01/2022 02:42 AM WBC 16.2 (H) 07/31/2022 09:41 AM WBC 13.5 (H) 07/28/2022 07:03 AM Lab Results Component Value Date/Time CR 0.62 (L) 08/04/2022 02:34 AM CR 0.75 08/03/2022 02:22 AM CR 0.70 08/01/2022 11:31 AM CR 0.77 08/01/2022 02:42 AM CR 0.74 07/31/2022 11:13 AM CrCl = estimated creatinine clearance is 103.3 mL/min (A) (based on SCr of 0.62 mg/dL (L)). Intake/Output Summary (Last 24 hours) at 08/04/2022 1528 Last data filed at 08/04/2022 0700 Gross per 24 hour Intake -- Output 375 ml Net -375 ml Pertinent Cultures: Date Drawn Site Organism Pertinent Sensitivity 07/25 BCX 2/ NGTD Strep PNU Urine Negative 07/28 Sputum GPC GNR Alpha Strep 07/29 Sputum Alpha Strep, moderate presuptive CA 07/30 Bronch wash Many neutrophils, culture pending yeast 07/27 (last updated 07/31) Pleural fluid Staph epi Sensitive to clindamycin, erythromycin, gentamicin, oxacillin, rifampin, tetracycline, and vancomycin 07/27 (last updated 08/01) Pleural fluid Microaerophilic strep Sensitive to cefotaxime and Penicillin G 08/02 tissue ngtd No pertinent past Epic positive culture history Levels: Date Time Level AUC Dose Comments 07/28 0703 7 336 1.75 gm x1 1.25 gm x2 24h 3m 07/30 0617 24.4 464 1.75 gm x1 1.25 gm x2 1.00 gm x4 3h 55m 08/01 1131 18.7 535 1.75 gm x1 1.25 gm x2 1.00 gm x8 8 h 50 m Assessment: Ray Phillips is a 67-year-old male who is currently receiving vancomycin. AUC goal is 400 - 600 Current AUC level is Therapeutic Renal function is Stable [facility] is consulted Plan: Antibiotic Plan: Continue scheduled dosing with 1000 mg q12h (est. AUC of 508) Next level due: Monday 08/06 w/ AM labs Pharmacy will continue to follow cultures, clinical status, and appropriateness of therapy. Thank you for the consult. Pharmacy Consult per Dr. Srinath MCDONNELL, PharmD Phone: [phone] 08/04/2022 3:28 PM APEUTIC SPECIALIST * Patel Kelsey MD - 08/04/2022 11:37 AM CST [facility]??PROGRESS??NOTE ?? Reason for Admission:?Respiratory failure (CMS/HCC) ?? Reason for Consult:??Respiratory failure, necrotizing pneumonia,??possible loculated??effusion??- empyema or abscess vs bronchopleural fistula ? ASSESSMENT/PLAN Ray Phillips??is a 67-year-old??male, with history of??chronic back pain,??50-pk year history smoking??who presented??with worsening shortness of breath over??2-3 week period. Present[address] with CT imaging concerning for loculated fluid collection in right posterior pleural cavity - pneumonia vs empyema or abscess vs bronchopleural fistula. Concern for malignancy as well given history of asbestos exposure, smoking history, and family history of lung cancer. [facility] ID and CT surgery as consulting services as well.??Oxygenation has improved post chest tube placement.??CT surgery performed VATS with right decortication 08/02. ?? [facility]ology consulted for??above. ?? Problem List:?? Acute hypoxic respiratory failure Probable COPD? Necrotizing pneumonia of right lower lobe Loculated right pleural effusion Possible??Pulmonary edema Small pericardial effusion Splenomegaly Acute blood loss anemia? History of tobacco abuse ?? Active workup:?? CT imaging reviewed. 08/01 - Labs reviewed, Hgb 8.6, WBC 11.1 Procalcitonin 1.83?? Sputum cultures with presumptive tete albicans ?? [facility] Pulmonology Plan/ Recommendations: -??S/p Chest tube placement 07/27/22. Pleural fluid cx with rare staph epi, and anaerobic cx with few microaerophilic strep. Exudative fluid with LDH >4000. Likely empyema. - Bronchoscopy completed 07/30. BAL and bronch wash cx growing yeast. Possible contaminant. - Repeat CT 07/31 appeared to still have loculated collection, hydropneumothorax, so VATS decortication done 08/02. Patient tolerated well. Chest tube to -20 suction. - Repeat CXR appears to have increased fluid right sided, will order CT without contrast to furtherevaluate. If this is loculated collection and returning since decortication, may need IR or CTS to drain this collection as chest tube may not be able to drain this loculation. Will follow scan results. - ID is managing antibiotics - currently on Vanc, Cefepime, Flagyl. ?? Thank you for the consult. We will continue to follow. Patel Kelsey MD 08/04/2022 SUBJECTIVE Patient doing fine this morning. Breathing is stable. No shortness of breath. Chest tube draining fine, minimal pain. No fever or chills. Review of Systems All other systems reviewed and are negative. OBJECTIVE Vitals: Filed Vitals: 08/04/22 0113 08/04/22 0130 08/04/22 0615 08/04/22 0750 BP: 94/46 98/57 107/61 Pulse: 67 69 Resp: 15 17 Temp: 98.7 ??F (37.1 ??C) 98.4 ??F (36.9 ??C) 98.2 ??F (36.8 ??C) TempSrc: Oral Oral SpO2: 96% 95% Weight: Height: Physical Exam Constitutional: General: He is not in acute distress. Appearance: Normal appearance. He is normal weight. HENT: Head: Normocephalic and atraumatic. Mouth/Throat: Mouth: Mucous membranes are moist. Eyes: General: No scleral icterus. Extraocular Movements: Extraocular movements intact. Cardiovascular: Rate and Rhythm: Normal rate and regular rhythm. Pulses: Normal pulses. Heart sounds: Normal heart sounds. Pulmonary: Effort: Pulmonary effort is normal. No respiratory distress. Breath sounds: No wheezing. Comments: Chest tube in place right side. Breath sounds diminished right middle and lower lobe. Abdominal: General: Bowel sounds are normal. Palpations: Abdomen is soft. Musculoskeletal: Right lower leg: No edema. Left lower leg: No edema. Skin: General: Skin is warm and dry. Neurological: General: No focal deficit present. Mental Status: He is alert and oriented to person, place, and time. Psychiatric: Mood and Affect: Mood normal. Behavior: Behavior normal. Medications: ??? cefepime 2 g Intravenous Q12H ??? enoxaparin 40 mg Subcutaneous Nightly (enoxaparin) ??? FLUoxetine 20 mg Oral Daily ??? gabapentin 300 mg Oral BID ??? ipratropium-albuterol 1 puff Inhalation Q4H ??? lidocaine 1 patch Transdermal Q24H ??? metroNIDAZOLE 500 mg Oral 3 times per day ??? normal saline 3-10 mL Intravenous Q8H ??? polyethylene glycol 17 g Oral BID ??? sterile talc 8 g Intrapleural Once ??? traZODone 100 mg Oral Nightly at bedtime ??? vancomycin 1,000 mg Intravenous Q12H ??? vancomycin pharmacy to dose Intravenous See Admin Instructions PRN: acetaminophen, albuterol sulfate HFA, alteplase, cyclobenzaprine, HYDROcodone- acetaminophen, influenza virus vaccine (QUAD), lidocaine, LORazepam, morphine, morphine, normal saline, ondansetron, senna-docusate, sodium chloride Allergies Allergen Reactions ??? Motrin [Ibuprofen] Shortness of Breath ??? Nsaids Shortness of Breath and GI Upset ??? Prednisone Shortness of Breath Intake/Output Summary (Last 24 hours) at 08/04/2022 1137 Last data filed at 08/04/2022 0700 Gross per 24 hour Intake -- Output 375 ml Net -375 ml Labs: Recent Labs Lab 07/31/22 0941 08/01/22 0242 08/03/22 0222 08/04/22 0234 WBC 16.2* 11.1* 11.0* 8.5 RBC 3.07* 2.58* 2.84* 2.39* HGB 10.1* 8.6* 9.2* 7.6* HCT 31.0* 26.4* 28.9* 24.4* MCV 101.0* 102.3* 101.8* 102.1* MCH 32.9* 33.3* 32.4* 31.8* MCHC 32.6* 32.6* 31.8* 31.1* PLT 277 246 216 178 RDW 15.3* 15.4* 15.1* 14.8* NEUC 14.00* 8.96* 8.98* 6.33 LYMC 1.26 1.27 0.81 1.11 MONOC 0.59 0.60 1.00 0.85 EOSC 0.01 0.12 0.12 0.14 BASOC 0.02 0.01 0.01 0.01 Recent Labs Lab 07/31/22 1113 08/01/22 0242 08/01/22 1131 08/03/22 0222 08/04/22 0234 NA 137 140 138 136 137 K 3.6 3.4* 3.9 3.8 3.7 CL 104 107 107 102 103 CO2 27.8 27.2 24.1 28.4 28.6 BUN 20* 19* 16 11 12 CR 0.74 0.77 0.70 0.75 0.62* GLU 106 145* -- 109* 106 CA 8.1* 8.1* 7.9* 8.0* 7.9* TP 5.6* 5.0* -- 5.4* 5.0* ALB 1.9* 1.7* -- 1.9* 1.6* TBIL 0.3 0.4 -- 0.6 0.6 ALKP 54 50 -- 49 41* AST 8* 8* -- 11* 11* ALT 15* 14* -- 13* 11* Recent Imaging: Radiology Results (Last 48 hours) 08/04/22 0527 XR CHEST PA OR AP 1V Final result Impression: IMPRESSION: ======== 1. Increasing size of tiny right effusion with scattered right lower lung increasing infiltrates. Improving effusion on the left. Referred By: PROVIDER NON-STAFF Interpreted By: Mitch Carpenter MD, 08/04/2022 6:43 AM 08/03/22 0550 XR CHEST PA OR AP 1V Final result Impression: IMPRESSION: ======== Developing tiny right pleural effusion otherwise stable interval appearance of infiltrates or atelectasis in the lung bases with probable left effusion. Referred By: PROVIDER NON-STAFF Interpreted By: Mitch Carpenter MD, 08/03/2022 9:15 AM Cosigned by Katie Paula MD at 08/04/2022 1:46 PM THERAPEUTIC SPECIALIST APEUTIC SPECIALIST APEUTIC SPECIALIST Associated attestation - Katie Paula MD - 08/04/2022 1:46 PM THERAPEUTIC SPECIALIST [facility] Attending Note: I reviewed with the resident the medical history and the resident???s findings on physical examination. I reviewed the patient's labs, and imaging studies. I discussed with the resident the patient???s diagnosis and concur with the treatment plan as documented in the resident note. Repeat CXR 08/04 showed increasing size of tiny right effusion with scattered right lower lung increasing infiltrates. Improving effusion on the left. Minimal drainage from the chest tube. Will order CT without contrast to further evaluate. Spoke to patient and his in the room, all questions were answered to their satisfaction. Thank you for the consult * Raquel Wetzel MD - 08/04/2022 9:52 AM CST Daily Progress Note Raquel Wetzel MD General Surgery Resident ID: Ray Phillips is a 67-year-old male : 1955 LOS: 10 ASSESSMENT/PLAN 67 year-old male with R parapneumonic effusion s/p R chest tube placement and TPA infusion by IR on07/27. S/p R VATS decortication on 08/02. - VSS, on 2L O2 - CXR today with increased R sided effusion compared to yesterday - 50 cc chest tube output - Continue chest tube to -20 suction Attending: Dr. Lemos for Dr. Blackburn SUBJECTIVE: Denies dyspnea or chest pain. Medications: Current Facility-Administered Medications: ??? acetaminophen (TYLENOL) tablet 650 mg, 650 mg, Oral, Q4H PRN, Tracy Yo MD, 650 mg at 08/01/220 ??? albuterol sulfate HFA 108 (90 Base) MCG/ACT inhaler 2 puff, 2 puff, Inhalation, Q4H PRN, Tracy Yo MD ??? alteplase (CATHFLO) injection, , , Code/Trauma/Sedation Med, Raul Osuna MD, 2 mg at 07/27/22 1034 ??? ceFEPIme (MAXIPIME) 2 g in sodium chloride (PF) 0.9 % 10 mL IV, 2 g, Intravenous, Q12H, Tracy Yo MD, 2 g at 08/04/22 0536 ??? cyclobenzaprine (FLEXERIL) tablet 10 mg, 10 mg, Oral, TID PRN, Tracy Yo MD, 10 mg at 07/26/22 0828 ??? enoxaparin (LOVENOX) 40 MG/0.4ML syringe 40 mg, 40 mg, Subcutaneous, Nightly (enoxaparin), Lanre Winter MD, 40 mg at 08/03/22 2102 ??? FLUoxetine (PROzac) capsule 20 mg, 20 mg, Oral, Daily, Tracy Yo MD, 20 mg at 08/04/22 0735 ??? gabapentin (NEURONTIN) capsule 300 mg, 300 mg, Oral, BID, Tracy Yo MD, 300 mg at 08/04/22 0734 ??? HYDROcodone-acetaminophen (NORCO) 10-325 MG tablet 1 tablet, 1 tablet, Oral, Q6H PRN, Tracy Yo MD, 1 tablet at 08/03/22 1017 ??? influenza virus vaccine (QUAD) injection 0.5 mL, 0.5 mL, Intramuscular, Once PRN, Florencio Amaya MD ??? ipratropium-albuterol (COMBIVENT RESPIMAT) 20-100 MCG/ACT inhaler 1 puff, 1 puff, Inhalation, Q4H, Lanre Winter MD, 1 puff at 08/04/22 0735 ??? lidocaine (XYLOCAINE) 1 % injection SOLN, , , Code/Trauma/Sedation Med, Raul Osuna MD, 8 mLat 07/27/22 1016 ??? lidocaine 4 % patch 1 patch, 1 patch, Transdermal, Q24H, Raquel Wetzel MD, 1 patch at 08/04/22 0535 ??? LORazepam (ATIVAN) tablet 1 mg, 1 mg, Oral, BID PRN, Tracy Yo MD, 1 mg at 08/03/22 2102 ??? metroNIDAZOLE (FLAGYL) tablet 500 mg, 500 mg, Oral, 3 times per day, Paulina Dale NP, 500 mg at 08/04/22 0735 ??? morphine (MSIR) tablet 30 mg, 30 mg, Oral, Q8H PRN, Tracy Yo MD, 30 mg at 08/03/22 2359 ??? morphine injection 1 mg, 1 mg, Intravenous, Q6H PRN, Florencio Amaya MD, 1 mg at 08/03/22 0556 ??? normal saline 0.9 % flush 3-10 mL, 3-10 mL, Intravenous, Q8H, JOSEPH Whitehead, 10 mL at 08/04/22 0735 ??? normal saline 0.9 % flush 3-10 mL, 3-10 mL, Intravenous, PRN, JOSEPH Whitehead, 10 mL at 08/02/22 1833 ??? ondansetron (ZOFRAN) injection 4 mg, 4 mg, Intravenous, Q8H PRN, Tracy Yo MD ??? polyethylene glycol (GLYCOLAX) packet 17 g, 17 g, Oral, BID, JOSEPH Whitehead, 17 g at 08/04/22 0734 ??? senna-docusate (SENOKOT-S) 8.6-50 MG tablet 1 tablet, 1 tablet, Oral, Nightly PRN, JOSEPH Whitehead ??? sodium chloride (OCEAN) 0.65 % nasal spray 1 spray, 1 spray, Each Nostril, PRN, rTacy Yo MD, 1 spray at 07/25/22 2305 ??? sterile talc (STERITALC) powder/slurry 8 g, 8 g, Intrapleural, Once, Ross Blackburn MD ??? traZODone (DESYREL) tablet 100 mg, 100 mg, Oral, Nightly at bedtime, Tracy Yo MD, 100 mg at 08/03/22 2103 ??? vancomycin 1000 mg in NS 250 mL IVPB, 1,000 mg, Intravenous, Q12H, Florencio Amaya MD, Stopped at 08/04/22 0712 ??? Pharmacy to dose vancomycin, , , Once AND vancomycin pharmacy to dose placeholder, , Intravenous, See Admin Instructions, Tracy Yo MD Scheduled Meds: ??? cefepime 2 g Intravenous Q12H ??? enoxaparin 40 mg Subcutaneous Nightly (enoxaparin) ??? FLUoxetine 20 mg Oral Daily ??? gabapentin 300 mg Oral BID ??? ipratropium-albuterol 1 puff Inhalation Q4H ??? lidocaine 1 patch Transdermal Q24H ??? metroNIDAZOLE 500 mg Oral 3 times per day ??? normal saline 3-10 mL Intravenous Q8H ??? polyethylene glycol 17 g Oral BID ??? sterile talc 8 g Intrapleural Once ??? traZODone 100 mg Oral Nightly at bedtime ??? vancomycin 1,000 mg Intravenous Q12H ??? vancomycin pharmacy to dose Intravenous See Admin Instructions Continuous Infusions: PRN Meds: acetaminophen, albuterol sulfate HFA, alteplase, cyclobenzaprine, HYDROcodone-acetaminophen, influenza virus vaccine (QUAD), lidocaine, LORazepam, morphine, morphine, normal saline, ondansetron, senna-docusate, sodium chloride OBJECTIVE Vital signs in the last 24 hours: Vitals: 08/04/22 0750 BP: Pulse: Resp: Temp: 98.2 ??F (36.8 ??C) SpO2: Intake/Output last 3 shifts: I/O last 3 completed shifts: In: - Out: 375 [Urine:325; Chest Tube:50] Intake/Output this shift: No intake/output data recorded. Today's Weight: Last Recorded Weight 11/04/17 1300 Weight: 2344 g (5 lb 2.7 oz) Yesterday's Weight: Wt Readings from Last 1 Encounters: 11/04/17 2344 g (5 lb 2.7 oz) Weight change in the last 24 hours: an appropriate measurement is not found Examination: General: NAD Lungs: easy respirations, symmetric chest rise. On 2L NC. Right sided pigtail chest tube in place Heart: regular rate and rhythm Neuro: AAOx3, no focal deficits Psych: appropriate mood and affect Labs and Cultures: CBC Lab Results Component Value Date/Time WBC 8.5 08/04/2022 02:34 AM Lab Results Component Value Date/Time RBC 2.39 (L) 08/04/2022 02:34 AM Lab Results Component Value Date/Time HGB 7.6 (L) 08/04/2022 02:34 AM Lab Results Component Value Date/Time HCT 24.4 (L) 08/04/2022 02:34 AM Cosigned by Brent Lemos MD at 08/04/2022 12:55 PM THERAPEUTIC SPECIALIST APEUTIC SPECIALIST APEUTIC SPECIALIST * SMITH Handley - 08/03/2022 4:38 PM CST OT Treatment Discharge Recommendation: home with assistance Activity Recommendation for configuration management specialist: Up with gait belt x1 assist using 2 w/w to restroom, up in chair for every meal. 08/03/22 1418 Therapy Visit OT Received On 08/03/22 Reason for admission Update: Pt had VATS with R decorication on 08/02 with R chest tube placement (CT to suction). Discussed with Ana MOYA who okayed lead technical writer proceed with POC. Pt is a 67 yo male who presents with SOB, PNA, hydropneumothorax, and loculated effusions. Pt may requires chest tube placeme nt.....PMH:chronic back pain due to back trauma 20 years ago, anxiety/depression, tobacco abuse....Eval and tx, activity as tolerated Ordering Provider Tracy Yo MD Verified Two Patient Identifiers Yes Patient consents to therapy Yes Acute Inpatient OT Time Calculation OT Start Time 1418 OT Stop Time 1446 OT Time Calculation (min) 28 min Precautions General Precautions Bed Alarm;Chair Alarm;Multiple lines;Fall Risk Instructed on Precautions Yes;Verbalizes understanding;Needs reinforcement and education Other tele, chest tube to wall suction, 2L O2 Home Living Home Living Comments Per eval, pt lives with in a 1 SH with no PRANAY. Pt has a walk in shower with shower chair, and gbs. Pt has a tall toilet with sink closeby. Pt has a 2ww, and cane but was notusing at home. 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 Pt reports he was noton home O2, and no falls. Subjective Subjective RN ok's therapy session. Pt lying awake supine in bed upon arrival and agreeable to OT session. Pt seen in room 742 using gait belt for transfers/mobility. Pain Pain Patient does not offer or c/o pain Activity Tolerance Endurance Quality Fair Limiting Factors to Endurance Fatigue;Weakness Activity Tolerance Comments Pt slowly improving, fatigues quickly. Cognition Overall Cognitive Status WFL Arousal/Alertness Appropriate responses to stimuli Attention Span Appears intact Memory Appears intact Orientation Level Oriented X4 Following Commands Follows all commands and directions without difficulty Safety Judgment Decreased awareness of need for safety Awareness of Errors Good awareness of errors made Deficits Fully aware of deficits Problem Solving Able to problem solve independently Comments Pt continues to require cues for safety during transfers and mobility. Very pleasant and cooperative with good therapy motivation. Motor Planning Appears intact Perseveration Not present Initiation Appears intact ADL Grooming Assistance Stand by;Standing at sink Grooming Deficit Wash/dry hands;Wash/dry face;Standing with assistive device Grooming Comment Pt tolerated standing sink side to wash/dry face and hands with min cues for walker placement and body positioning up to sink. Pt followed through well with good initiation. Toileting Assistance Stand by Toileting Deficit Clothing management up;Clothing management down;Perineal hygiene Toileting Comment Pt required increased time following through with good initiation for pant mangmement and perineal hygiene. Bed Mobility Rolling Independent Supine to Sit Independent Sit to Supine Independent Other (Comment) bed flat using bed rail as needed. Functional Transfers Sit to Stand Independent Bed to Chair SBA/supervision Toilet Transfers Supervision;Grab bars Functional Mobility Pt performed functional mobility in room while completing ADL tasks and furtherdistances in room for increased mobility. Pt required SBA with frequent cues for body positioning and walker safety, pt pushes walker out too far in front in forward flexed position. Pt stated he walked that way prior, lead technical writer discussed safety concerns. Other (Comment) Pt performed several sit <> stand transfers with min cues for safety of controlled descent. Balance Sitting - Static Independent Sitting - Dynamic Independent Standing - Static Modified independence Standing - Dynamic SBA Other (Comment) Pt limited by fatigue, no overt LOB. OT Assessment OT Assessment Pt progressing towards OT goals, tolerated session fairly well continues to fatigue quickly with mobility. Pt will benefit from continued skilled OT in acute setting in order to increase safety and activity tolerance/ challenge balance for transfers and ADL tasks prior to returning home. Recommendation OT Recommendation Home with assistance OT Equipment Recommended To Be Determined Barriers to Community Discharge Safety Plan OT Treatment/Intervention Self-care training;Functional activity Progress Slow progress, decreased activity tolerance OT Frequency 5 times/week OT - Next Appointment 08/03/22 If this is the last treatment note, it will serve as the discharge summary Yes End of Session End of Session Safety Chair alarm set/activated;Call light within reach;Family/friend present with patient;Nursing aware of session;Transfer status education End of Session Comment Pt agreeable to staying OOB and up in chair at end of session. Left with B LE elevated, call light in reach, and chair alarm activated. Education: Primary Learners Name: Ray Phillips Primary Language of learner: Angolan Patient was educated on transfers ADLs balance therapy plan safety energy conservation. Education was completed one to one verbal this date. Preference of learning new concepts one to one verbal Barriers to education this date were fatigue. Response to education this date verbalized understanding verbalized recall asks questions demos with verbal cues needs reinforcement needs follow up needs assistance. APEUTIC SPECIALIST * Lanre Winter MD - 08/03/2022 3:18 PM CST Progress note CC:-Follow-up of empyema respiratory failure SUBJECTIVE Patient seen and examined. Had significant chest pain on right side Continues to take MS IR along with lidocaine patch and hence did not sleep well Sleeping today denies shortness of breath OBJECTIVE Wt Readings from Last 3 Encounters: 07/28/22 67.5 kg (148 lb 12.8 oz) Temp: 98 ??F (36.7 ??C) BP Readings from Last 3 Encounters: 08/03/22 120/82 Pulse Readings from Last 3 Encounters: 08/03/22 78 Review of Systems Constitutional: Negative for chills, fever and weight loss. HENT: Negative for congestion and ear pain. Eyes: Negative for blurred vision and double vision. Respiratory: Negative for cough, hemoptysis, sputum production, shortness of breath and wheezing. Cardiovascular: Positive for chest pain. Negative for palpitations, orthopnea, leg swelling and PND. Gastrointestinal: Negative for abdominal pain, blood in stool, nausea and vomiting. Genitourinary: Negative for dysuria, flank pain and hematuria. Musculoskeletal: Negative for back pain, joint pain and neck pain. Skin: Negative for rash. Neurological: Negative for speech change, focal weakness and loss of consciousness. Endo/Heme/Allergies: Negative for polydipsia. Psychiatric/Behavioral: Negative for depression and suicidal ideas. The patient is not nervous/anxious. All other systems reviewed and are negative. PHYSICAL EXAMINATION: Physical Exam Vitals and nursing note reviewed. Constitutional: Appearance: He is ill-appearing. HENT: Head: Normocephalic. Eyes: General: No scleral icterus. Conjunctiva/sclera: Conjunctivae normal. Pupils: Pupils are equal, round, and reactive to light. Neck: Vascular: No JVD. Cardiovascular: Rate and Rhythm: Normal rate and regular rhythm. Pulses: Normal pulses. Heart sounds: No murmur heard. Pulmonary: Effort: Pulmonary effort is normal. No accessory muscle usage or respiratory distress. Breath sounds: Normal breath sounds. No wheezing. Abdominal: General: Bowel sounds are normal. There is no distension. Palpations: Abdomen is soft. There is no mass. Tenderness: There is no abdominal tenderness. There is no guarding or rebound. Musculoskeletal: General: Normal range of motion. Cervical back: Normal range of motion and neck supple. Skin: Findings: No erythema or rash. Neurological: Mental Status: He is alert and oriented to person, place, and time. Cranial Nerves: No cranial nerve deficit. Coordination: Coordination normal. Psychiatric: Mood and Affect: Mood and affect normal. LABS: Recent Labs 08/01/2224108/03/22221 WBC 11.1* 11.0* HGB 8.6* 9.2* HCT 26.4* 28.9* MCV 102.3* 101.8* PLT 246 216 RBC 2.58* 2.84* Recent Labs 08/01/22 0242 08/01/22 1131 08/03/22221 ALT 14* -- 13* AST 8* -- 11* CO2 27.2 24.1 28.4 CL 107 107 102 GLU 145* -- 109* K 3.4* 3.9 3.8 NA 140 138 136 BUN 19* 16 11 Intake/Output Summary (Last 24 hours) at 08/03/2022 1518 Last data filed at 08/03/2022 0601 Gross per 24 hour Intake 885 ml Output 40 ml Net 845 ml Microbiology Results (last 14 days) Procedure Component Value Units Date/Time CULTURE, ANAEROBIC [[id number]] Collected: 08/02/22837 Order Status: Sent Lab Status: In process Updated: 08/02/22 100 Specimen: TISSUE from OTHER (type in comments) CULTURE TB/AFB OTHER (TYPE IN COMMENTS) [[id number]] Collected: 08/02/22837 Order Status: Sent Lab Status: In process Updated: 08/02/22 1009 Specimen: TISSUE from OTHER (type in comments) CULTURE, FUNGUS [[id number]] Collected: 08/02/22837 Order Status: Sent Lab Status: In process Updated: 08/02/22 1010 Specimen: TISSUE from OTHER (type in comments) CULTURE, TISSUE W/GRAM STAIN [[id number]] Collected: 08/02/22837 Order Status: Completed Lab Status: Preliminary result Updated: 08/02/22 1602 Specimen: TISSUE from OTHER (type in comments) Spec. Description TISSUE: RT DECORTICATION TISU Special Requests: NO SPECIAL REQUEST Follow-up of empyema hydropneumothorax result -- MODERATE NEUTROPHILS SEEN Gram Stain Result NO ORGANISMS SEEN Culture Result: PENDING SMEAR,FLUOR STAIN,ACID FAST [[id number]] Collected: 08/02/22837 Order Status: No result Lab Status: In process Updated: 08/02/22 1012 CULTURE, FUNGUS [[id number]] Order Status: No result Lab Status: No result Specimen: BRONCHOALVEO LAV, RT LWR CULTURE TB/AFB OTHER (TYPE IN COMMENTS) [[id number]] Order Status: No result Lab Status: No result Specimen: BRONCHOALVEO LAV, RT LWR SMEAR,FLUOR STAIN,ACID FAST [[id number]] Order Status: No result Lab Status: No result Specimen: BRONCHOALVEO LAV, RT LWR CULTURE VIRAL RESPIRATORY RAPID [[id number]] Order Status: No result Lab Status: No result Specimen: BRONCHOALVEO LAV, RT LWR CULTURE RESPIRATORY W/ GRAM STAIN [[id number]] Order Status: No result Lab Status: No result Specimen: BRONCHIAL WASHING CULTURE, FUNGUS [[id number]] Order Status: No result Lab Status: No result Specimen: BRONCHIAL WASHING CULTURE TB/AFB OTHER (TYPE IN COMMENTS) [[id number]] Order Status: No result Lab Status: No result Specimen: BRONCHIAL WASHING SMEAR,FLUOR STAIN,ACID FAST [[id number]] Order Status: No result Lab Status: No result Specimen: BRONCHIAL WASHING CULTURE VIRAL RESPIRATORY RAPID [[id number]] Order Status: No result Lab Status: No result Specimen: BRONCHIAL WASHING CULTURE, QUANTITATIVE W/ GRAM STAIN [[id number]] Order Status: No result Lab Status: No result Specimen: BRONCHOALVEO LAV, RT LWR CULTURE, FUNGUS [[id number]] Collected: 07/30/221529 Order Status: No result Lab Status: In process Updated: 07/30/22 170 CULTURE RESPIRATORY W/ GRAM STAIN [[id number]] Collected: 07/30/221529 Order Status: Completed Lab Status: Final result Updated: 08/03/22 1228 Specimen: SITE Spec. Description SITE: BRONCH WASH Special Requests: NO SPECIAL REQUEST Gram Stain Result -- MANY NEUTROPHILS SEEN Gram Stain Result NO ORGANISMS SEEN Culture Result: -- FEW TETE ALBICANS SMEAR,FLUOR STAIN,ACID FAST [[id number]] Collected: 07/30/221529 Order Status: Completed Lab Status: Final result Updated: 08/01/222317 ACID FAST SMEAR RESULT SEE NOTE 08/01/2022 11:18 PM Comment: Test Result Flag Unit RefValue Acid Fast Smear For Mycobacterium SOURCE: BRONCHIAL WASHING, BWASH/BAL MIX ACID FAST SMEAR FOR MYCOBACTERIUM FINAL Negative. Test Performed by: [place] [address] Counter Cutter: Brent Alcaraz M.D. Ph.D.; CLIA# [id number] CULTURE TB/AFB OTHER [[id number]] Collected: 07/30/221529 Order Status: No result Lab Status: In process Updated: 07/30/22 170 CULTURE, QUANTITATIVE W/ GRAM STAIN [[id number]] Collected: 07/30/221529 Order Status: Completed Lab Status: Final result Updated: 08/02/22 1457 Specimen: SITE Spec. Description SITE: BAL RLL Special Requests: NO SPECIAL REQUEST Gram Stain Result <10 NEUTROPHILS PER LPF Gram Stain Result <10 EPITHELIAL CELLS PER LPF Gram Stain Result -- RARE GRAM NEGATIVE RODS Culture Result: -- 500 CFU/ML YEAST , ID UPON REQUEST CULTURE, FUNGUS [[id number]] Collected: 07/30/221529 Order Status: Canceled Lab Status: No result SMEAR,FLUOR STAIN,ACID FAST [[id number]] Collected: 07/30/22 153 Order Status: Canceled Lab Status: No result CULTURE TB/AFB OTHER [[id number]] Collected: 07/30/221529 Order Status: Canceled Lab Status: No result CULTURE CMV [[id number]] Collected: 07/30/221529 Order Status: No result Lab Status: In process Updated: 07/31/22 1431 CULTURE HERPES [[id number]] Collected: 07/30/221529 Order Status: No result Lab Status: In process Updated: 07/31/22 1432 CULTURE VIRAL RESPIRATORY RAPID [[id number]] Collected: 07/30/221529 Order Status: No result Lab Status: In process Updated: 07/31/22 143 CULTURE RESPIRATORY W/ GRAM STAIN [[id number]] Collected: 07/28/221424 Order Status: Completed Lab Status: Final result Updated: 07/31/22 0847 Specimen: SPUTUM, EXPECTORATED Spec. Description SPUTUM, EXPECTORATED Special Requests: NO SPECIAL REQUEST Gram Stain Result >25 NEUTROPHILS PER LPF Gram Stain Result <10 EPITHELIAL CELLS PER LPF Gram Stain Result -- RARE BUDDING YEAST CELLS Gram Stain Result -- RARE GRAM POSITIVE COCCI IN PAIRS Gram Stain Result -- RARE GRAM NEGATIVE RODS Culture Result: -- FEW ALPHA STREPTOCOCCUS Culture Result: -- MODERATE PRESUMPTIVE TETE ALBICANS CULTURE, FUNGUS [[id number]] Collected: 07/28/221424 Order Status: Sent Lab Status: In process Updated: 07/31/22 133 Specimen: SPUTUM, EXPECTORATED CULTURE TB/AFB OTHER (TYPE IN COMMENTS) [[id number]] Collected: 07/28/221424 Order Status: Sent Lab Status: No result Specimen: SPUTUM, EXPECTORATED SMEAR,FLUOR STAIN,ACID FAST [[id number]] Collected: 07/28/221424 Order Status: No result Lab Status: In process Updated: 07/28/22 1612 HISTOPLASMA ANTIGEN [[id number]] Collected: 07/28/221423 Order Status: Sent Lab Status: No result Specimen: BLOOD HISTOPLASMA ANTIGEN [[id number]] Collected: 07/28/221423 Order Status: Canceled Lab Status: No result Specimen: BLOOD GLUCOSE, BODY FLUID [[id number]] Order Status: Canceled Lab Status: No result Specimen: PLEURAL FLUID PH BODY FLUID [[id number]] Order Status: Canceled Lab Status: No result Specimen: PLEURAL FLUID CULTURE, BODY FLUID W/ GRAM STAIN [[id number]] Order Status: Canceled Lab Status: No result Specimen: PLEURAL FLUID CULTURE, ANAEROBIC [[id number]] Order Status: Canceled Lab Status: No result Specimen: PLEURAL FLUID CULTURE, FUNGUS [[id number]] Order Status: Canceled Lab Status: No result Specimen: PLEURAL FLUID LDH BODY FLUID [[id number]] Collected: 07/27/221029 Order Status: Completed Lab Status: Final result Updated: 07/27/22 152 Specimen: PLEURAL FLUID FLUID LDH >4,000 UNITS/L Comment: REFERENCE RANGE NOT ESTABLISHED FOR THIS BODY FLUID. SOURCE (FLUID) PLEURAL FLUID CELL COUNT W/ DIFF BODY FLUID [[id number]] Collected: 07/27/221029 Order Status: Completed Lab Status: Final result Updated: 07/27/22 1545 Specimen: PLEURAL FLUID SOURCE (FLUID) PLEURAL FLUID FL WBC 144.450 x10'3/uL Comment: REFERENCE RANGE NOT ESTABLISHED FL RBC 0.090 x10'6/uL Comment: REFERENCE RANGE NOT ESTABLISHED DIFFERENTIAL MANUAL DIFFERENTIAL PERFORMED ON CONCENTRATED CYTOSPIN CELLS COUNTED 100 No COUNTED SEGS (FLUID) 97 % LYMPHS (FLUID) 3 % PROTEIN TOTAL FLUID [[id number]] Collected: 07/27/221029 Order Status: Completed Lab Status: Final result Updated: 07/27/22 152 Specimen: PLEURAL FLUID PROTEIN (FLUID) 3.5 G/DL Comment: REFERENCE RANGE NOT ESTABLISHED FOR THIS BODY FLUID. SOURCE (FLUID) PLEURAL FLUID CULTURE, BODY FLUID W/ GRAM STAIN [[id number]] Collected: 07/27/221029 Order Status: Canceled Lab Status: No result Specimen: PLEURAL FLUID CULTURE, ANAEROBIC [[id number]] Collected: 07/27/221029 Order Status: Canceled Lab Status: No result Specimen: PLEURAL FLUID CULTURE, BODY FLUID W/ GRAM STAIN [[id number]] (Susceptibility) Collected: 07/27/221029 Order Status: Completed Lab Status: Final result Updated: 07/31/22 0751 Specimen: PLEURAL FLUID Spec. Description PLEURAL FLUID: RT Special Requests: NO SPECIAL REQUEST Gram Stain Result -- MANY NEUTROPHILS SEEN Gram Stain Result NO ORGANISMS SEEN Culture Result: -- RARE STAPHYLOCOCCUS EPIDERMIDIS Susceptibility Staphylococcus epidermidis ARLEN (VITEK) CLINDAMYCIN Sensitive ERYTHROMYCIN Sensitive GENTAMICIN Sensitive OXACILLIN Sensitive PENICILLIN G Resistant RIFAMPIN Sensitive TETRACYCLINE Sensitive TRIMETH-SULFAMETH. Resistant VANCOMYCIN Sensitive CULTURE, ANAEROBIC [[id number]] (Susceptibility) Collected: 07/27/22 1030 Order Status: Completed Lab Status: Final result Updated: 08/01/22 0826 Specimen: SITE Spec. Description SITE: RT PLEURAL FLUID Special Requests: NO SPECIAL REQUEST Culture Result: -- FEW MICROAEROPHILIC STREPTOCOCCUS Susceptibility Microaerophilic streptococcus ARLEN (ETEST) CEFOTAXIME 0.023 Sensitive PENICILLIN G 0.008 Sensitive BLASTOMYCES AG MVISTA (TM), EIA [[id number]] Order Status: No result Lab Status: No result Specimen: BLOOD BLASTOMYCES AG MVISTA (TM), EIA [[id number]] Order Status: No result Lab Status: No result Specimen: URINE CORONAVIRUS (COVID 19) PCR - Asymptomatic patients, may be completed at physician discretion [[id number]] Collected: 07/25/222031 Order Status: Sent Lab Status: No result Specimen: NASOPHARYNGEAL SWAB STREP PNEUMO AG URINE [[id number]] Collected: 07/25/222030 Order Status: Completed Lab Status: Final result Updated: 07/26/221425 Specimen: URINE, VOIDED S. PNEUMONIAE URINARY AG NEGATIVE Comment: PRESUMPTIVE NEGATIVE FOR PNEUMOCOCCAL PNEUMONIA, SUGGESTING NO CURRENT OR RECENT PNEUMOCOCCAL INFECTION. INFECTION DUE TO STREPTOCOCCUS PNEUMONIA CANNOT BE RULED OUT SINCE THE ANTIGEN PRESENT IN THE SAMPLE MAY BELOW THE DETECTION LIMIT OF THE TEST. Specimen Type URINE VOIDED MRSA PCR nares Screening [[id number]] Collected: 07/25/222030 Order Status: Canceled Lab Status: No result Specimen: NASAL CULTURE, BACTERIA, BLOOD [[id number]] Collected: 07/25/221416 Order Status: Completed Lab Status: Final result Updated: 07/30/222144 Specimen: BLOOD Spec. Description BLOOD Special Requests: NO SPECIAL REQUEST Culture Result: NO GROWTH 5 DAYS CULTURE, BACTERIA, BLOOD [[id number]] Collected: 07/25/221415 Order Status: Completed Lab Status: Final result Updated: 07/30/222144 Specimen: BLOOD Spec. Description BLOOD Special Requests: BLOOD-AEROBIC BOTTLE ONLY Culture Result: NO GROWTH 5 DAYS Radiology MEDICATIONS Scheduled medications ??? cefepime 2 g Intravenous Q12H ??? enoxaparin 40 mg Subcutaneous Nightly (enoxaparin) ??? FLUoxetine 20 mg Oral Daily ??? gabapentin 300 mg Oral BID ??? ipratropium-albuterol 1 puff Inhalation Q4H ??? lactated ringers bolus 500 mL Intravenous Once ??? lidocaine 1 patch Transdermal Q24H ??? metroNIDAZOLE 500 mg Oral 3 times per day ??? normal saline 3-10 mL Intravenous Q8H ??? polyethylene glycol 17 g Oral BID ??? sterile talc 8 g Intrapleural Once ??? traZODone 100 mg Oral Nightly at bedtime ??? vancomycin 1,000 mg Intravenous Q12H ??? vancomycin pharmacy to dose Intravenous See Admin Instructions Infusion PRN acetaminophen, albuterol sulfate HFA, alteplase, cyclobenzaprine, HYDROcodone- acetaminophen, influenza virus vaccine (QUAD), lidocaine, LORazepam, morphine, morphine, normal saline, ondansetron, senna-docusate, sodium chloride ASSESSMENT /PLAN Ray Phillips is a 67-year-old male with the following history as recorded in [facility]: Problem List Items Addressed This Visit None PLAN: Acute Hypoxic Respiratory Failure - resolved ?? Copd exacerbation improved on combivent o2 ??Necrotizing pneumonia of right lower lobe??with empyema?? 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 Small pericardial effusion on echo ?? Chronic anemia needing transfusion hh stable monitor post op ?? Chronic back pain Anxiety/depression History of tobacco abuse Chronic compression fracture of L3 Lumbar spondylosis History of back trauma ?dvtp resume lovenox ?? Seen this afternoon chest pain controlled no respite distress tolerating antibiotics without diarrhea ? Awaiting chest tube removal final recs per ID once cultures available and further clinical improvement LANRE WINTER MD 3:18 PM 08/03/2022 APEUTIC SPECIALIST * Raquel Wetzel MD - 08/03/2022 2:55 PM CST Daily Progress Note Raquel Wetzel MD General Surgery Resident ID: Ray Phillips is a 67-year-old male : 1955 LOS: 9 ASSESSMENT/PLAN 67 year-old male with R parapneumonic effusion s/p R chest tube placement and TPA infusion by IR on07/27. S/p R VATS decortication on 08/02. - VSS, on 2L O2 - CXR today with no R effusion, good lung expansion - 40 cc chest tube output - Continue chest tube to suction Attending: Dr. Blackburn SUBJECTIVE: Denies dyspnea or chest pain. Medications: Current Facility-Administered Medications: ??? acetaminophen (TYLENOL) tablet 650 mg, 650 mg, Oral, Q4H PRN, Tracy Yo MD, 650 mg at 08/01/22 2140 ??? albuterol sulfate HFA 108 (90 Base) MCG/ACT inhaler 2 puff, 2 puff, Inhalation, Q4H PRN, Tracy Yo MD ??? alteplase (CATHFLO) injection, , , Code/Trauma/Sedation Med, Raul Osuna MD, 2 mg at 07/27/22 1034 ??? ceFEPIme (MAXIPIME) 2 g in sodium chloride (PF) 0.9 % 10 mL IV, 2 g, Intravenous, Q12H, Tracy Yo MD, 2 g at 08/03/22 0556 ??? cyclobenzaprine (FLEXERIL) tablet 10 mg, 10 mg, Oral, TID PRN, Tracy Yo MD, 10 mg at 07/26/22 0828 ??? enoxaparin (LOVENOX) 40 MG/0.4ML syringe 40 mg, 40 mg, Subcutaneous, Nightly (enoxaparin), Lanre Winter MD ??? FLUoxetine (PROzac) capsule 20 mg, 20 mg, Oral, Daily, Tracy Yo MD, 20 mg at 08/03/22 0818 ??? gabapentin (NEURONTIN) capsule 300 mg, 300 mg, Oral, BID, Tracy Yo MD, 300 mg at 08/03/22 0818 ??? HYDROcodone-acetaminophen (NORCO) 10-325 MG tablet 1 tablet, 1 tablet, Oral, Q6H PRN, Tracy Yo MD, 1 tablet at 08/03/22 1017 ??? influenza virus vaccine (QUAD) injection 0.5 mL, 0.5 mL, Intramuscular, Once PRN, Florencio Amaya MD ??? ipratropium-albuterol (COMBIVENT RESPIMAT) 20-100 MCG/ACT inhaler 1 puff, 1 puff, Inhalation, Q4H, Lanre Winter MD, 1 puff at 08/03/22 1017 ??? lactated ringers bolus infusion 500 mL, 500 mL, Intravenous, Once, Lanre Winter MD ??? lidocaine (XYLOCAINE) 1 % injection SOLN, , , Code/Trauma/Sedation Med, Raul Osuna MD, 8 mLat 07/27/22 1016 ??? lidocaine 4 % patch 1 patch, 1 patch, Transdermal, Q24H, Raquel Wetzel MD, 1 patch at 08/03/22 0604 ??? LORazepam (ATIVAN) tablet 1 mg, 1 mg, Oral, BID PRN, Tracy Yo MD, 1 mg at 08/03/22 0202 ??? metroNIDAZOLE (FLAGYL) tablet 500 mg, 500 mg, Oral, 3 times per day, Paulina Dale NP, 500 mg at 08/03/22 0556 ??? morphine (MSIR) tablet 30 mg, 30 mg, Oral, Q8H PRN, Tracy Yo MD, 30 mg at 08/02/22 2316 ??? morphine injection 1 mg, 1 mg, Intravenous, Q6H PRN, Florencio Amaya MD, 1 mg at 08/03/22 0556 ??? normal saline 0.9 % flush 3-10 mL, 3-10 mL, Intravenous, Q8H, JOSEPH Whitehead, 10 mL at 08/03/22 0818 ??? normal saline 0.9 % flush 3-10 mL, 3-10 mL, Intravenous, PRN, JOSEPH Whitehead, 10 mL at 08/02/22 1833 ??? ondansetron (ZOFRAN) injection 4 mg, 4 mg, Intravenous, Q8H PRN, Tracy Yo MD ??? polyethylene glycol (GLYCOLAX) packet 17 g, 17 g, Oral, BID, JOSEPH Whitehead, 17 g at 08/03/22 0818 ??? senna-docusate (SENOKOT-S) 8.6-50 MG tablet 1 tablet, 1 tablet, Oral, Nightly PRN, JOSEPH Whitehead ??? sodium chloride (OCEAN) 0.65 % nasal spray 1 spray, 1 spray, Each Nostril, PRN, Tracy Yo MD, 1 spray at 07/25/22 2305 ??? sterile talc (STERITALC) powder/slurry 8 g, 8 g, Intrapleural, Once, Ross Blackburn MD ??? traZODone (DESYREL) tablet 100 mg, 100 mg, Oral, Nightly at bedtime, Tracy Yo MD, 100 mg at 08/02/222000 ??? vancomycin 1000 mg in NS 250 mL IVPB, 1,000 mg, Intravenous, Q12H, Florencio Amaya MD, Stopped at 08/03/22 0739 ??? Pharmacy to dose vancomycin, , , Once AND vancomycin pharmacy to dose placeholder, , Intravenous, See Admin Instructions, Tracy Yo MD Scheduled Meds: ??? cefepime 2 g Intravenous Q12H ??? enoxaparin 40 mg Subcutaneous Nightly (enoxaparin) ??? FLUoxetine 20 mg Oral Daily ??? gabapentin 300 mg Oral BID ??? ipratropium-albuterol 1 puff Inhalation Q4H ??? lactated ringers bolus 500 mL Intravenous Once ??? lidocaine 1 patch Transdermal Q24H ??? metroNIDAZOLE 500 mg Oral 3 times per day ??? normal saline 3-10 mL Intravenous Q8H ??? polyethylene glycol 17 g Oral BID ??? sterile talc 8 g Intrapleural Once ??? traZODone 100 mg Oral Nightly at bedtime ??? vancomycin 1,000 mg Intravenous Q12H ??? vancomycin pharmacy to dose Intravenous See Admin Instructions Continuous Infusions: PRN Meds: acetaminophen, albuterol sulfate HFA, alteplase, cyclobenzaprine, HYDROcodone-acetaminophen, influenza virus vaccine (QUAD), lidocaine, LORazepam, morphine, morphine, normal saline, ondansetron, senna-docusate, sodium chloride OBJECTIVE Vital signs in the last 24 hours: Vitals: 08/03/22 1130 BP: 120/82 Pulse: 78 Resp: 18 Temp: 98 ??F (36.7 ??C) SpO2: 95% Intake/Output last 3 shifts: I/O last 3 completed shifts: In: 2085 [P.O.:885; I.V.:1200] Out: 380 [Urine:300; Blood:40; Chest Tube:40] Intake/Output this shift: No intake/output data recorded. Today's Weight: Last Recorded Weight 11/04/17 1300 Weight: 2344 g (5 lb 2.7 oz) Yesterday's Weight: Wt Readings from Last 1 Encounters: 11/04/17 2344 g (5 lb 2.7 oz) Weight change in the last 24 hours: an appropriate measurement is not found Examination: General: NAD Lungs: easy respirations, symmetric chest rise. On 2L NC. Right sided pigtail chest tube in place Heart: regular rate and rhythm Neuro: AAOx3, no focal deficits Psych: appropriate mood and affect Labs and Cultures: CBC Lab Results Component Value Date/Time WBC 11.0 (H) 08/03/2022 02:22 AM Lab Results Component Value Date/Time RBC 2.84 (L) 08/03/2022 02:22 AM Lab Results Component Value Date/Time HGB 9.2 (L) 08/03/2022 02:22 AM Lab Results Component Value Date/Time HCT 28.9 (L) 08/03/2022 02:22 AM Cosigned by Ross Blackburn MD at 08/04/2022 8:14 AM THERAPEUTIC SPECIALIST APEUTIC SPECIALIST APEUTIC SPECIALIST * Ford Tay - 08/03/2022 2:52 PM CST Vancomycin Pharmacokinetic Progress Note Day 9 of therapy Ray Phillips is a 67-year-old male for which pharmacy has been consulted to dose vancomycin for pleural fluid growing Staphylococcus Epidermidis. Other antibiotics ordered include azithromycin 500 mg IV Q24H (07/25-07/29), cefepime 2 mg IV Q12H (07/25-) and metronidazole 500 mg Q8H (07/30-) Historical vancomycin use: vancomycin 1000 mg x1 07/23/22 @2330 Allergies: Allergies Allergen Reactions ??? Motrin [Ibuprofen] Shortness of Breath ??? Nsaids Shortness of Breath and GI Upset ??? Prednisone Shortness of Breath Height: 5' 5 (1.651 m) Weight: 67.5 kg (148 lb 12.8 oz) Body mass index is 24.76 kg/m??. Temp (24 hr max): Temp Av.7 ??F (37.1 ??C) Min: 98 ??F (36.7 ??C) Max: 100.1 ??F (37.8 ??C) Today's labs and vitals: Lab Results Component Value Date/Time WBC 11.0 (H) 08/03/2022 02:22 AM WBC 11.1 (H) 08/01/2022 02:42 AM WBC 16.2 (H) 07/31/2022 09:41 AM WBC 13.5 (H) 07/28/2022 07:03 AM WBC 21.3 (H) 07/27/2022 02:40 AM Lab Results Component Value Date/Time CR 0.75 08/03/2022 02:22 AM CR 0.70 08/01/2022 11:31 AM CR 0.77 08/01/2022 02:42 AM CR 0.74 07/31/2022 11:13 AM CR 0.73 07/28/2022 07:03 AM CrCl = estimated creatinine clearance is 85.4 mL/min (based on SCr of 0.75 mg/dL). Intake/Output Summary (Last 24 hours) at 08/03/2022 1454 Last data filed at 08/03/2022 0601 Gross per 24 hour Intake 885 ml Output 40 ml Net 845 ml Pertinent Cultures: Date Drawn Site Organism Pertinent Sensitivity 07/25 BCX 10/04 NGTD Strep PNU Urine Negative 07/28 Sputum GPC GNR Alpha Strep 07/29 Sputum Alpha Strep, moderate presuptive CA 07/30 Bronch wash Many neutrophils, culture pending 07/27 (last updated 07/31) Pleural fluid Staph epi Sensitive to clindamycin, erythromycin, gentamicin, oxacillin, rifampin, tetracycline, and vancomycin 07/27 (last updated 08/01) Pleural fluid Microaerophilic strep Sensitive to cefotaxime and Penicillin G No pertinent past Epic positive culture history Levels: Date Time Level AUC Dose Comments 07/28 0703 7 336 1.75 gm x1 1.25 gm x2 24h 3m 07/30 0617 24.4 464 1.75 gm x1 1.25 gm x2 1.00 gm x4 3h 55m 08/01 1131 18.7 535 1.75 gm x1 1.25 gm x2 1.00 gm x8 8 h 50 m Assessment: Ray Phillips is a 67-year-old male who is currently receiving vancomycin. AUC goal is 400 - 600 Current AUC level is Therapeutic Renal function is Fluctuating SCr 0.57-->0.91-->0.73 -->0.74-->0.75--> (this am) WBC improving, 11.0 this am [facility] ID is consulted Plan: Antibiotic Plan: Continue scheduled dosing with 1000 mg q12h (est. AUC of 508) Next level due: Monday 08/06 w/ AM labs Pharmacy will continue to follow cultures, clinical status, and appropriateness of therapy. Thank you for the consult. Pharmacy Consult per Dr. Srinath Tay Phone: [phone] 08/03/2022 2:54 PM Cosigned by Maria Antonia Quiñones, PharmD at 08/03/2022 3:40 PM THERAPEUTIC SPECIALIST APEUTIC SPECIALIST APEUTIC SPECIALIST * Zoila Farias MD - 08/03/2022 12:40 PM CSTSummary: [facility] ID PROGRESS NOTE [facility] INFECTIOUS DISEASE PROGRESS NOTE Attending Provider:Dr. Robbins PCP: JOE TAM DO Reason for Consultation: Loculated pleural effusions, Pneumonia ASSESSMENT AND PLAN Ray Phillips is a 67-year-old male with medical history of chronic tobacco use who was transferred from [facility] near [place] for treatment resistant pneumonia and loculated pleural effusions. Currently on Vancomycin, Cefepime, and metronidazole. Continue vancomycin for pleural fluid growing staph epi, cefepime for GNR in BAL, and flagyl for concerns of abscess on initial imaging. Patient is s/p chesttube placement on 07/27, and bronchoscopy on 07/30. Patient s/p VATS procedure on 08/02. Pending cultures. [facility] ID has been consulted for antibiotic management of necrotizing pneumonia and loculated effusions. Diagnoses: Acute Hypoxic Respiratory Failure 2/2 Pneumonia/Loculated Effusions (s/p chest tube on 07/27 and VATS on 08/02) Community Acquire Pneumonia Loculated Pleural Effusions Air-Fluid level on imaging concerning for hydropneumothorax, empyema, or fistula Possible COPD Anemia History of Asbestos exposure [facility] Infectious Disease Team Recommendations -Continue Vancomycin (per pharmacy dosing). -Continue Cefepime. -Continue Metronidazole PO 500 mg q 8h. -Patient s/p VATS procedure 08/02 pending cultures. -Appreciate Pulmonology assistance. -Plan as above discussed with patient, all voiced questions/concerns addressed, voices agreement and understanding with plan. Thank you for consulting [facility] Infectious Disease, we will continue to follow. Paulina Dale APRN [facility] Infectious Disease 08/03/2022 Teaching physician note: Infectious Diseases Attending Physician: Patient personally interviewed and examined. Chart reviewed. Vitals, pertinent labs and imaging reviewed. [facility] Infectious Disease resident/fellow note reviewed and findings verified. Case discussed with the Infectious Disease team. Zoila Farias MD 08/03/22 SUBJECTIVE Patient seen and examined this morning resting in bed. No acute events overnight. Patient had low grade fever overnight 100.1 but afebrile thus far today. Patient endorses mild SOB but states it has improved. He denies abdominal pain, chest pain, N/V/D, rash. He feels that he is ready to go home. Review of Systems 10 point ROS negative except as stated in subjective OBJECTIVE Infectious Evaluation Summary Labs SCr 0.75 WBC: 11.0 Images 08/03 CXR:Developing tiny right pleural effusion otherwise stable interval appearance of infiltratesor atelectasis in the lung bases with probable left effusion. 08/02 CXR: Unchanged bibasilar opacities. 07/31 CT chest: 1. Focal loculated hydropneumothorax, right posterior inferior pleura, unchanged in size; with significantly decreased fluid component and increased air component. Right pleural catheter in place. Probable pneumothorax ex vacuo. Unlikely bronchopleural fistula. 2. Possible interstitial pulmonary edema. Small left pleural effusion. 3. Possible superimposed atypical viral infectious interstitial pneumonia, improved. 4. Emphysema. 07/31 CXR: 1. Right-sided chest remains in place. Persistent pleural-based opacity in the lateral right lower chest likely representing some residual loculated effusion. 2. Increased left basilar opacity likely due to increased atelectasis with possible small effusion.In addition there is some increased groundglass opacity overlying the left midlung. 07/30 CXR: 1) Interval decrease in small left pleural effusion and left basilar consolidation. No other significant change. 07/29 US ABD: 1. 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 The smallest of the 3 cyst demonstrates thin internal septation but appears benign. No follow-up imaging is recommended. 2. Splenomegaly. 07/27 TTE: The left ventricular size is normal. The calculated ejection fraction is 61%. Wall motion appears normal in all segments. The right ventricle is normal in size and function. No evidence of pericardial effusion. Aortic root is mildly dilated. Ascending aorta is mildly dilated. Inferior vena cava shows >50% collapse with respiration consistent with normal right atrial pressure. No significant valvular heart disease. Micro 07/25 Blood Culture x2 : NTD 07/25 Strep Pneumo: negative 07/25 Legionella: negative 07/26 Mycoplasma:negative 07/26 HIV Ab: Negative 07/26 Histoplasma: negative 07/26 Blastomyces: negative 07/27 right pleural fluid anaerobic: Microaerophilic streptococcus 07/27 Right pleural fluid: Staphylococcus epidermidis 07/27 Right Pleural fluid cell count: Protein: 3.5 WBC 144,450 RBC: 90,000 Segs: 97% Lymphs: 3% LDH: >4,000 07/28 Sputum: Alpha Streptococcus, Tete Albicans 07/30 BAL: GNR 07/30 Bronch Wash: NG Antimicrobial Regimen Unknown Abx regiment at [facility] Vancomycin IV 1.25g every 24h(07/25 - present) Cefepime IV 2g every 12h(07/25 - present) Metronidazole 500mg q8h (07/30-present) Azithromycin IV 500mg every 24 hours (07/25 -07/29) Drug Monitoring Filed Vitals: 08/03/22 0020 08/03/22 0420 08/03/22 0820 08/03/22 1130 BP: 101/58 108/59 108/66 120/82 Pulse: 77 79 78 78 Resp: Temp: 100.1 ??F (37.8 ??C) 99 ??F (37.2 ??C) 98.3 ??F (36.8 ??C) 98 ??F (36.7 ??C) TempSrc: Oral Oral Oral Oral SpO2: 96% 95% 95% 95% Weight: Height: Physical Exam HENT: Head: Normocephalic. Eyes: General: No scleral icterus. Conjunctiva/sclera: Conjunctivae normal. Pupils: Pupils are equal, round, and reactive to light. Neck: Vascular: No JVD. Cardiovascular: Rate and Rhythm: Normal rate and regular rhythm. Pulses: Normal pulses. Heart sounds: No murmur heard. Pulmonary: Effort: Pulmonary effort is normal. No accessory muscle usage or respiratory distress. Breath sounds: Reduced breath sounds on the right side. Chest tube with serosanguinous fluid. Abdominal: General: Bowel sounds are normal. There is no distension. Palpations: Abdomen is soft. There is no mass. Tenderness: There is no abdominal tenderness. There is no guarding or rebound. Musculoskeletal: General: Normal range of motion. Cervical back: Normal range of motion and neck supple. Skin: Findings: No erythema or rash. Neurological: Mental Status: He is alert and oriented to person, place, and time. Cranial Nerves: No cranial nerve deficit. Coordination: Coordination normal. Psychiatric: Mood and Affect: Mood and affect normal. Current Facility-Administered Medications: ??? acetaminophen (TYLENOL) tablet 650 mg, 650 mg, Oral, Q4H PRN, Tracy Yo MD, 650 mg at 08/01/22 2140 ??? albuterol sulfate HFA 108 (90 Base) MCG/ACT inhaler 2 puff, 2 puff, Inhalation, Q4H PRN, Tracy Yo MD ??? alteplase (CATHFLO) injection, , , Code/Trauma/Sedation Med, Raul Osuna MD, 2 mg at 07/27/22 1034 ??? ceFEPIme (MAXIPIME) 2 g in sodium chloride (PF) 0.9 % 10 mL IV, 2 g, Intravenous, Q12H, Tracy Yo MD, 2 g at 08/03/22 0556 ??? cyclobenzaprine (FLEXERIL) tablet 10 mg, 10 mg, Oral, TID PRN, Tracy Yo MD, 10 mg at 07/26/22 0828 ??? enoxaparin (LOVENOX) 40 MG/0.4ML syringe 40 mg, 40 mg, Subcutaneous, Nightly (enoxaparin), Lanre Winter MD ??? FLUoxetine (PROzac) capsule 20 mg, 20 mg, Oral, Daily, Tracy Yo MD, 20 mg at 08/03/22 0818 ??? gabapentin (NEURONTIN) capsule 300 mg, 300 mg, Oral, BID, Tracy Yo MD, 300 mg at 08/03/22 0818 ??? HYDROcodone-acetaminophen (NORCO) 10-325 MG tablet 1 tablet, 1 tablet, Oral, Q6H PRN, Tracy Yo MD, 1 tablet at 08/03/22 1017 ??? influenza virus vaccine (QUAD) injection 0.5 mL, 0.5 mL, Intramuscular, Once PRN, Florencio Amaya MD ??? ipratropium-albuterol (COMBIVENT RESPIMAT) 20-100 MCG/ACT inhaler 1 puff, 1 puff, Inhalation, Q4H, Lanre Winter MD, 1 puff at 08/03/22 1017 ??? lactated ringers bolus infusion 500 mL, 500 mL, Intravenous, Once, Lanre Winter MD ??? lidocaine (XYLOCAINE) 1 % injection SOLN, , , Code/Trauma/Sedation Med, Raul Osuna MD, 8 mLat 07/27/22 1016 ??? lidocaine 4 % patch 1 patch, 1 patch, Transdermal, Q24H, Raquel Wetzel MD, 1 patch at 08/03/22 0604 ??? LORazepam (ATIVAN) tablet 1 mg, 1 mg, Oral, BID PRN, Tracy Yo MD, 1 mg at 08/03/22 0202 ??? metroNIDAZOLE (FLAGYL) tablet 500 mg, 500 mg, Oral, 3 times per day, Paulina Dale NP, 500 mg at 08/03/22 0556 ??? morphine (MSIR) tablet 30 mg, 30 mg, Oral, Q8H PRN, Tracy Yo MD, 30 mg at 08/02/22 2316 ??? morphine injection 1 mg, 1 mg, Intravenous, Q6H PRN, Florencio Amaya MD, 1 mg at 08/03/22 0556 ??? normal saline 0.9 % flush 3-10 mL, 3-10 mL, Intravenous, Q8H, JOSEPH Whitehead, 10 mL at 08/03/22 0818 ??? normal saline 0.9 % flush 3-10 mL, 3-10 mL, Intravenous, PRN, JOSEPH Whitehead, 10 mL at 08/02/22 1833 ??? ondansetron (ZOFRAN) injection 4 mg, 4 mg, Intravenous, Q8H PRN, Tracy Yo MD ??? polyethylene glycol (GLYCOLAX) packet 17 g, 17 g, Oral, BID, JOSEPH Whitehead, 17 g at 08/03/22 0818 ??? senna-docusate (SENOKOT-S) 8.6-50 MG tablet 1 tablet, 1 tablet, Oral, Nightly PRN, JOSEPH Whitehead ??? sodium chloride (OCEAN) 0.65 % nasal spray 1 spray, 1 spray, Each Nostril, PRN, Tracy Yo MD, 1 spray at 07/25/22 2305 ??? sterile talc (STERITALC) powder/slurry 8 g, 8 g, Intrapleural, Once, Ross Blackburn MD ??? traZODone (DESYREL) tablet 100 mg, 100 mg, Oral, Nightly at bedtime, Tracy Yo MD, 100 mg at 08/02/222000 ??? vancomycin 1000 mg in NS 250 mL IVPB, 1,000 mg, Intravenous, Q12H, Florencio Amaya MD, Stopped at 08/03/22 0739 ??? Pharmacy to dose vancomycin, , , Once AND vancomycin pharmacy to dose placeholder, , Intravenous, See Admin Instructions, Tracy Yo MD APEUTIC SPECIALIST APEUTIC SPECIALIST APEUTIC SPECIALIST APEUTIC SPECIALIST * Adali Henry, [facility] - 08/03/2022 11:43 AM CST [facility] PULMONOLOGY??PROGRESS??NOTE ?? Reason for Admission:?Respiratory failure (CMS/HCC) ?? Reason for Consult:??Respiratory failure, necrotizing pneumonia,??possible loculated??effusion??- empyema or abscess vs bronchopleural fistula ? ASSESSMENT/PLAN Ray Phillips??is a 67-year-old??male, with history of??chronic back pain,??50-pk year history smoking??who presented??with worsening shortness of breath over??2-3 week period. Present[address] with CT imaging concerning for loculated fluid collection in right posterior pleural cavity - pneumonia vs empyema or abscess vs bronchopleural fistula. Concern for malignancy as well given history of asbestos exposure, smoking history, and family history of lung cancer. [facility] ID and CT surgery as consulting services as well.??Oxygenation has improved post chest tube placement.??CT surgery performed VATS with right decortication 08/02. ?? [facility] Pulmonology consulted for??above. ?? Problem List:?? Acute hypoxic respiratory failure Probable COPD? Necrotizing pneumonia of right lower lobe Loculated right pleural effusion Possible??Pulmonary edema Small pericardial effusion Splenomegaly Acute blood loss anemia? History of tobacco abuse ?? Active workup:?? CT imaging reviewed. 08/01 - Labs reviewed, Hgb 8.6, WBC 11.1 Procalcitonin 1.83?? Sputum cultures with presumptive tete albicans ?? [facility] Pulmonology Plan/ Recommendations: -??S/p Chest tube placement 07/27/22. Pleural fluid cx with rare staph epi, and anaerobic cx with few microaerophilic strep. Exudative fluid with LDH >4000. Likely empyema. - Bronchoscopy completed 07/30. BAL and bronch wash cx growing yeast. Possible contaminant. - Repeat CT 07/31 appeared to still have loculated collection, hydropneumothorax, so VATS decortication done 08/02. Patient tolerated well. Chest tube to -20 suction. - ID is managing antibiotics - currently on Vanc, Cefepime, Flagyl. - CXR reviewed today: tiny right pleural effusion, otherwise stable. Thank you for the consult. We will continue to follow. ?? Adali Henry, NUTRITION SERVICES AIDE 08/03/2022 SUBJECTIVE Patient doing well this morning, reports soreness at the surgical site. Feels his breathing has improved. Less short of breath, not coughing, no wheezing. Reports low grade fever overnight but deniesfevers, chills, chest pain at this time. Review of Systems All other systems reviewed and are negative. OBJECTIVE Vitals: Filed Vitals: 08/03/22 0020 08/03/22 0420 08/03/22 0820 08/03/22 1130 BP: 101/58 108/59 108/66 120/82 Pulse: 77 79 78 78 Resp: 18 Temp: 100.1 ??F (37.8 ??C) 99 ??F (37.2 ??C) 98.3 ??F (36.8 ??C) 98 ??F (36.7 ??C) TempSrc: Oral Oral Oral Oral SpO2: 96% 95% 95% 95% Weight: Height: Physical Exam Constitutional: General: He is not in acute distress. Appearance: Normal appearance. He is normal weight. HENT: Head: Normocephalic and atraumatic. Mouth/Throat: Mouth: Mucous membranes are moist. Eyes: General: No scleral icterus. Extraocular Movements: Extraocular movements intact. Cardiovascular: Rate and Rhythm: Normal rate and regular rhythm. Pulses: Normal pulses. Heart sounds: Normal heart sounds. Pulmonary: Effort: Pulmonary effort is normal. No respiratory distress. Breath sounds: No wheezing. Comments: Chest tube in place right side. Breath sounds diminished right middle and lower lobe. Abdominal: General: Bowel sounds are normal. Palpations: Abdomen is soft. Musculoskeletal: Right lower leg: No edema. Left lower leg: No edema. Skin: General: Skin is warm and dry. Neurological: General: No focal deficit present. Mental Status: He is alert and oriented to person, place, and time. Psychiatric: Mood and Affect: Mood normal. Behavior: Behavior normal. Medications: ??? cefepime 2 g Intravenous Q12H ??? enoxaparin 40 mg Subcutaneous Nightly (enoxaparin) ??? FLUoxetine 20 mg Oral Daily ??? gabapentin 300 mg Oral BID ??? ipratropium-albuterol 1 puff Inhalation Q4H ??? lactated ringers bolus 500 mL Intravenous Once ??? lidocaine 1 patch Transdermal Q24H ??? metroNIDAZOLE 500 mg Oral 3 times per day ??? normal saline 3-10 mL Intravenous Q8H ??? polyethylene glycol 17 g Oral BID ??? sterile talc 8 g Intrapleural Once ??? traZODone 100 mg Oral Nightly at bedtime ??? vancomycin 1,000 mg Intravenous Q12H ??? vancomycin pharmacy to dose Intravenous See Admin Instructions PRN: acetaminophen, albuterol sulfate HFA, alteplase, cyclobenzaprine, HYDROcodone- acetaminophen, influenza virus vaccine (QUAD), lidocaine, LORazepam, morphine, morphine, normal saline, ondansetron, senna-docusate, sodium chloride Allergies Allergen Reactions ??? Motrin [Ibuprofen] Shortness of Breath ??? Nsaids Shortness of Breath and GI Upset ??? Prednisone Shortness of Breath Intake/Output Summary (Last 24 hours) at 08/03/2022 1144 Last data filed at 08/03/2022 0601 Gross per 24 hour Intake 885 ml Output 40 ml Net 845 ml Labs: Recent Labs Lab 07/28/22 0703 07/31/22 0941 08/01/22 0242 08/03/22221 WBC 13.5* 16.2* 11.1* 11.0* RBC 2.51* 3.07* 2.58* 2.84* HGB 8.3* 10.1* 8.6* 9.2* HCT 25.1* 31.0* 26.4* 28.9* MCV 100.0 101.0* 102.3* 101.8* MCH 33.1* 32.9* 33.3* 32.4* MCHC 33.1 32.6* 32.6* 31.8* PLT 303 277 246 216 RDW 14.7* 15.3* 15.4* 15.1* NEUC 11.61* 14.00* 8.96* 8.98* LYMC 1.08 1.26 1.27 0.81 MONOC 0.81 0.59 0.60 1.00 EOSC 0.00 0.01 0.12 0.12 BASOC 0.00 0.02 0.01 0.01 Recent Labs Lab 07/28/22 0703 07/31/22 1113 08/01/22 0242 08/01/22 1131 08/03/22221 NA 137 137 140 138 136 K 4.0 3.6 3.4* 3.9 3.8 CL 105 104 107 107 102 CO2 28.7 27.8 27.2 24.1 28.4 BUN 19* 20* 19* 16 11 CR 0.73 0.74 0.77 0.70 0.75 GLU 98 106 145* -- 109* CA 7.9* 8.1* 8.1* 7.9* 8.0* TP -- 5.6* 5.0* -- 5.4* ALB -- 1.9* 1.7* -- 1.9* TBIL -- 0.3 0.4 -- 0.6 ALKP -- 54 50 -- 49 AST -- 8* 8* -- 11* ALT -- 15* 14* -- 13* Recent Imaging: Radiology Results (Last 48 hours) 08/03/22 0550 XR CHEST PA OR AP 1V Final result Impression: IMPRESSION: ======== Developing tiny right pleural effusion otherwise stable interval appearance of infiltrates or atelectasis in the lung bases with probable left effusion. Referred By: PROVIDER NON-STAFF Interpreted By: Mitch Carpenter MD, 08/03/2022 9:15 AM 08/02/22 0958 XR CHEST PORTABLE Final result Impression: IMPRESSION: 1. Unchanged bibasilar opacities. Ordered By: EDVIN POLLACK Interpreted By: Atilio Read MD, 08/02/2022 10:55 AM Cosigned by Katie Paula MD at 08/03/2022 7:56 PM THERAPEUTIC SPECIALIST APEUTIC SPECIALIST APEUTIC SPECIALIST Associated attestation - Katie Paula MD - 08/03/2022 7:56 PM THERAPEUTIC SPECIALIST [facility] Attending Note: I reviewed with the resident the medical history and the resident???s findings on physical examination. I reviewed the patient's labs, and imaging studies. I discussed with the resident the patient???s diagnosis and concur with the treatment plan as documented in the resident note. Thank you for the consult * Denice Hassan PTA - 08/03/2022 10:51 AM CST PT Treatment Discharge Recommendation: home with assistance DME equipment recommendation: none Activity Recommendation for configuration management specialist: up with 1, gaitbelt, chest tube to suction 08/03/22 1043 Therapy Visit Ordering Provider Tracy Yo MD Subjective RN okayed session. Pt awake in bed with present and agreeable to PT session. Reports he is in a lot of pain from procedure yesterday - called RN and asked for pain meds. Reason for admission Update: Pt had VATS with R decorication on 08/02 with R chest tube placement (CT to suction). Discussed with Ana MOYA who okayed lead technical writer proceed with POC. Pt is a 67 yo male who presents with SOB, PNA, hydropneumothorax, and loculated effusions. Pt may requires chest tube placeme nt.....PMH:chronic back pain due to back trauma 20 years ago, anxiety/depression, tobacco abuse....Eval and tx, activity as tolerated Verified Two Patient Identifiers Yes Patient consents to therapy Yes Acute Inpatient PT Time Calculation PT Start Time 0952 PT Stop Time 1022 PT Time Calculation (min) 30 min Precautions General Precautions Bed Alarm;Chair Alarm;Multiple lines;Fall Risk Instructed on Precautions Yes;Verbalizes understanding;Needs reinforcement and education Other tele, chest tube to wall suction, 2L O2 Home Living Home Living Comments Per eval, pt lives with in a 1 SH with no PRANAY. Pt has a walk in shower with shower chair, and gbs. Pt has a tall toilet with sink closeby. Pt has a 2ww, and cane but was notusing at home. 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 Pt reports he was noton home O2, and no falls. Pain Pain Yes Pain Score 8 Location R side at chest tube insertion site Interventions Informed RN;Re-positioning Activity Tolerance Endurance Quality Fair Limiting Factors to Endurance Fatigue;Weakness Activity Tolerance Comments improving, required cues and training for energy conservation techniques t/o session. Cognition Overall Cognitive Status WFL Orientation Level Oriented X4 Deficits Fully aware of deficits Problem Solving Able to problem solve independently Initiation Appears intact Bed Mobility Supine to Sit Independent TRANSFERS Sit to Stand Independent Bed to Chair SBA/supervision (due to line management) Gait Gait Assistance MIKA (had brought portable suction machine into room. Pt politely declining gait today due to high pain levels.) Balance Sitting - Static Independent Sitting - Dynamic Independent Standing - Static Modified independence Standing - Dynamic SBA Balance Training Standing reaching activities;Standing weight shifting all planes Other (Comment) Pt completes 3 reps of sit<>stand standing x1-2 min each rep. Completed UE diagnol reaches bx10, standing october bx5, mini lunges bx3. Fatigues quickly due to pain. Exercises Other (Comment) Educated pt on importance of completing ankle pumps every hour and he is agreeable to plan. PT Assessment PT Assessment Home with assist from PT standpoint once medically appropriate. Patient/Family Training Other (Comment) Educated pt on importance of OOB activity and to remain up in recliner x1-2 hrs. Ptagreeable to plan and pleasant. Recommendation PT Recommendation Home with assistance Plan PT Treatments/Interventions Gait Training;Therapeutic Exercises;Therapeutic Activities;Neuromuscular re-education Progress Slow progress, multiple tests/procedures PT Frequency 5 times/week PT - Next Appointment 08/03/22 If this is the last treatment note,it will serve as the discharge summary Yes End of Session End of Session Safety Call light within reach;Family/friend present with patient;Nursing aware of session;Transfer status education End of Session Comment RN entering to give pain meds as lead technical writer exiting room. Education: Primary Learners Name: Ray Phillips Primary Language of learner: Angolan Patient Spouse was educated on exercises transfers balance bed mobility therapy plan safety. Education was completed one to one this date. Preference of learning new concepts one to one Barriers to education this date were pain fatigue. Response to education this date needs follow up. APEUTIC SPECIALIST * Estephania Long RN - 08/03/2022 8:35 AM CST 08/03/22 0835 Interdisciplinary Group Conference Team Members Present Physician;Case/Care management (Dr. Winter: [facility]) Barriers to Discharge Barriers Not Medically ready Not Medically ready follow up [facility] status: s/p Vats: Chest tube to suction Patient's plan is to dc to home,lives with significant other: May need home oxygen eval prior to dc. CM will continue to follow for safe dc planning/dc needs. APEUTIC SPECIALIST * Lanre Winter MD - 08/02/2022 3:34 PM CST Progress note CC:- f/u of empyema SUBJECTIVE Patient seen and examined. Seen post VATS - has chest tube reports discomfort mild pain at surgical site denies worsening sob OBJECTIVE Wt Readings from Last 3 Encounters: 07/28/22 67.5 kg (148 lb 12.8 oz) Temp: 97 ??F (36.1 ??C) BP Readings from Last 3 Encounters: 08/02/22 (!) 85/56 Pulse Readings from Last 3 Encounters: 08/02/22 63 Review of Systems Constitutional: Negative for chills, fever and weight loss. HENT: Negative for congestion and ear pain. Eyes: Negative for blurred vision and double vision. Respiratory: Negative for cough, hemoptysis, sputum production, shortness of breath and wheezing. Cardiovascular: Negative for chest pain, palpitations, orthopnea, leg swelling and PND. Gastrointestinal: Negative for abdominal pain, blood in stool, nausea and vomiting. Genitourinary: Negative for dysuria, flank pain and hematuria. Musculoskeletal: Negative for back pain, joint pain and neck pain. Skin: Negative for rash. Neurological: Negative for speech change, focal weakness and loss of consciousness. Endo/Heme/Allergies: Negative for polydipsia. Psychiatric/Behavioral: Negative for depression and suicidal ideas. The patient is not nervous/anxious. All other systems reviewed and are negative. PHYSICAL EXAMINATION: Physical Exam Vitals and nursing note reviewed. Constitutional: Appearance: He is ill-appearing. HENT: Head: Normocephalic. Eyes: General: No scleral icterus. Conjunctiva/sclera: Conjunctivae normal. Pupils: Pupils are equal, round, and reactive to light. Neck: Vascular: No JVD. Cardiovascular: Rate and Rhythm: Normal rate and regular rhythm. Pulses: Normal pulses. Heart sounds: No murmur heard. Pulmonary: Effort: Pulmonary effort is normal. No accessory muscle usage or respiratory distress. Breath sounds: Normal breath sounds. No wheezing. Abdominal: General: Bowel sounds are normal. There is no distension. Palpations: Abdomen is soft. There is no mass. Tenderness: There is no abdominal tenderness. There is no guarding or rebound. Musculoskeletal: General: Normal range of motion. Cervical back: Normal range of motion and neck supple. Skin: Findings: No erythema or rash. Neurological: Mental Status: He is alert and oriented to person, place, and time. Cranial Nerves: No cranial nerve deficit. Coordination: Coordination normal. Psychiatric: Mood and Affect: Mood and affect normal. LABS: Recent Labs 07/31/22 0941 08/01/22 0242 WBC 16.2* 11.1* HGB 10.1* 8.6* HCT 31.0* 26.4* MCV 101.0* 102.3* PLT 277 246 RBC 3.07* 2.58* Recent Labs 07/31/22 1113 08/01/22 0242 08/01/22 1131 ALT 15* 14* -- AST 8* 8* -- CO2 27.8 27.2 24.1 CL 104 107 107 GLU 106 145* -- K 3.6 3.4* 3.9 NA 137 140 138 BUN 20* 19* 16 Intake/Output Summary (Last 24 hours) at 08/02/2022 1534 Last data filed at 08/02/2022 0918 Gross per 24 hour Intake 1200 ml Output 340 ml Net 860 ml Microbiology Results (last 14 days) Procedure Component Value Units Date/Time CULTURE, ANAEROBIC [[id number]] Collected: 08/02/22837 Order Status: Sent Lab Status: In process Updated: 08/02/22 1008 Specimen: TISSUE from OTHER (type in comments) CULTURE TB/AFB OTHER (TYPE IN COMMENTS) [[id number]] Collected: 08/02/22837 Order Status: Sent Lab Status: In process Updated: 08/02/22 1009 Specimen: TISSUE from OTHER (type in comments) CULTURE, FUNGUS [[id number]] Collected: 08/02/22837 Order Status: Sent Lab Status: In process Updated: 08/02/22 1010 Specimen: TISSUE from OTHER (type in comments) CULTURE, TISSUE W/GRAM STAIN [[id number]] Collected: 08/02/22837 Order Status: Sent Lab Status: In process Updated: 08/02/22 1010 Specimen: TISSUE from OTHER (type in comments) SMEAR,FLUOR STAIN,ACID FAST [[id number]] Collected: 08/02/22 0838 Order Status: No result Lab Status: In process Updated: 08/02/22 1012 CULTURE, FUNGUS [[id number]] Order Status: No result Lab Status: No result Specimen: BRONCHOALVEO LAV, RT LWR CULTURE TB/AFB OTHER (TYPE IN COMMENTS) [[id number]] Order Status: No result Lab Status: No result Specimen: BRONCHOALVEO LAV, RT LWR SMEAR,FLUOR STAIN,ACID FAST [[id number]] Order Status: No result Lab Status: No result Specimen: BRONCHOALVEO LAV, RT LWR CULTURE VIRAL RESPIRATORY RAPID [[id number]] Order Status: No result Lab Status: No result Specimen: BRONCHOALVEO LAV, RT LWR CULTURE RESPIRATORY W/ GRAM STAIN [[id number]] Order Status: No result Lab Status: No result Specimen: BRONCHIAL WASHING CULTURE, FUNGUS [[id number]] Order Status: No result Lab Status: No result Specimen: BRONCHIAL WASHING CULTURE TB/AFB OTHER (TYPE IN COMMENTS) [[id number]] Order Status: No result Lab Status: No result Specimen: BRONCHIAL WASHING SMEAR,FLUOR STAIN,ACID FAST [[id number]] Order Status: No result Lab Status: No result Specimen: BRONCHIAL WASHING CULTURE VIRAL RESPIRATORY RAPID [[id number]] Order Status: No result Lab Status: No result Specimen: BRONCHIAL WASHING CULTURE, QUANTITATIVE W/ GRAM STAIN [[id number]] Order Status: No result Lab Status: No result Specimen: BRONCHOALVEO LAV, RT LWR CULTURE, FUNGUS [[id number]] Collected: 07/30/22 153 Order Status: No result Lab Status: In process Updated: 07/30/22 1701 CULTURE RESPIRATORY W/ GRAM STAIN [[id number]] Collected: 07/30/22 153 Order Status: Completed Lab Status: Preliminary result Updated: 08/01/22 151 Specimen: SITE Spec. Description SITE: BRONCH WASH Special Requests: NO SPECIAL REQUEST Gram Stain Result -- MANY NEUTROPHILS SEEN Gram Stain Result NO ORGANISMS SEEN Culture Result: -- FEW YEAST . FURTHER ID TO FOLLOW. SMEAR,FLUOR STAIN,ACID FAST [[id number]] Collected: 111529 Order Status: Completed Lab Status: Final result Updated: 08/01/22 2318 ACID FAST SMEAR RESULT SEE NOTE 08/01/2022 11:18 PM Comment: Test Result Flag Unit RefValue Acid Fast Smear For Mycobacterium SOURCE: BRONCHIAL WASHING, BWASH/BAL MIX ACID FAST SMEAR FOR MYCOBACTERIUM FINAL Negative. Test Performed by: [facility] [place] [address] Counter Cutter: Brent Alcaraz M.D. Ph.D.; CLIA# [id number] CULTURE TB/AFB OTHER [[id number]] Collected: 07/30/221529 Order Status: No result Lab Status: In process Updated: 07/30/22 1704 CULTURE, QUANTITATIVE W/ GRAM STAIN [[id number]] Collected: 07/30/221529 Order Status: Completed Lab Status: Final result Updated: 08/02/22 145 Specimen: SITE Spec. Description SITE: BAL RLL Special Requests: NO SPECIAL REQUEST Gram Stain Result <10 NEUTROPHILS PER LPF Gram Stain Result <10 EPITHELIAL CELLS PER LPF Gram Stain Result -- RARE GRAM NEGATIVE RODS Culture Result: -- 500 CFU/ML YEAST , ID UPON REQUEST CULTURE, FUNGUS [[id number]] Collected: 07/30/221529 Order Status: Canceled Lab Status: No result SMEAR,FLUOR STAIN,ACID FAST [[id number]] Collected: 07/30/221529 Order Status: Canceled Lab Status: No result CULTURE TB/AFB OTHER [[id number]] Collected: 07/30/221529 Order Status: Canceled Lab Status: No result CULTURE CMV [[id number]] Collected: 07/30/221529 Order Status: No result Lab Status: In process Updated: 07/31/22 1431 CULTURE HERPES [[id number]] Collected: 07/30/221529 Order Status: No result Lab Status: In process Updated: 07/31/22 1432 CULTURE VIRAL RESPIRATORY RAPID [[id number]] Collected: 11/28/22 1530 Order Status: No result Lab Status: In process Updated: 07/31/22 1435 CULTURE RESPIRATORY W/ GRAM STAIN [[id number]] Collected: 07/28/221424 Order Status: Completed Lab Status: Final result Updated: 07/31/22 0847 Specimen: SPUTUM, EXPECTORATED Spec. Description SPUTUM, EXPECTORATED Special Requests: NO SPECIAL REQUEST Gram Stain Result >25 NEUTROPHILS PER LPF Gram Stain Result <10 EPITHELIAL CELLS PER LPF Gram Stain Result -- RARE BUDDING YEAST CELLS Gram Stain Result -- RARE GRAM POSITIVE COCCI IN PAIRS Gram Stain Result -- RARE GRAM NEGATIVE RODS Culture Result: -- FEW ALPHA STREPTOCOCCUS Culture Result: -- MODERATE PRESUMPTIVE TETE ALBICANS CULTURE, FUNGUS [[id number]] Collected: 07/28/221424 Order Status: Sent Lab Status: In process Updated: 07/31/221335 Specimen: SPUTUM, EXPECTORATED CULTURE TB/AFB OTHER (TYPE IN COMMENTS) [[id number]] Collected: 07/28/221424 Order Status: Sent Lab Status: No result Specimen: SPUTUM, EXPECTORATED SMEAR,FLUOR STAIN,ACID FAST [[id number]] Collected: 07/28/221424 Order Status: No result Lab Status: In process Updated: 07/28/22 161 HISTOPLASMA ANTIGEN [[id number]] Collected: 07/28/221423 Order Status: Sent Lab Status: No result Specimen: BLOOD HISTOPLASMA ANTIGEN [[id number]] Collected: 07/28/221423 Order Status: Canceled Lab Status: No result Specimen: BLOOD GLUCOSE, BODY FLUID [[id number]] Order Status: Canceled Lab Status: No result Specimen: PLEURAL FLUID PH BODY FLUID [[id number]] Order Status: Canceled Lab Status: No result Specimen: PLEURAL FLUID CULTURE, BODY FLUID W/ GRAM STAIN [[id number]] Order Status: Canceled Lab Status: No result Specimen: PLEURAL FLUID CULTURE, ANAEROBIC [[id number]] Order Status: Canceled Lab Status: No result Specimen: PLEURAL FLUID CULTURE, FUNGUS [[id number]] Order Status: Canceled Lab Status: No result Specimen: PLEURAL FLUID LDH BODY FLUID [[id number]] Collected: 07/27/22 1030 Order Status: Completed Lab Status: Final result Updated: 07/27/22 152 Specimen: PLEURAL FLUID FLUID LDH >4,000 UNITS/L Comment: REFERENCE RANGE NOT ESTABLISHED FOR THIS BODY FLUID. SOURCE (FLUID) PLEURAL FLUID CELL COUNT W/ DIFF BODY FLUID [[id number]] Collected: 07/27/221029 Order Status: Completed Lab Status: Final result Updated: 07/27/22 1545 Specimen: PLEURAL FLUID SOURCE (FLUID) PLEURAL FLUID FL WBC 144.450 x10'3/uL Comment: REFERENCE RANGE NOT ESTABLISHED FL RBC 0.090 x10'6/uL Comment: REFERENCE RANGE NOT ESTABLISHED DIFFERENTIAL MANUAL DIFFERENTIAL PERFORMED ON CONCENTRATED CYTOSPIN CELLS COUNTED 100 No COUNTED SEGS (FLUID) 97 % LYMPHS (FLUID) 3 % PROTEIN TOTAL FLUID [[id number]] Collected: 07/27/221029 Order Status: Completed Lab Status: Final result Updated: 07/27/22 152 Specimen: PLEURAL FLUID PROTEIN (FLUID) 3.5 G/DL Comment: REFERENCE RANGE NOT ESTABLISHED FOR THIS BODY FLUID. SOURCE (FLUID) PLEURAL FLUID CULTURE, BODY FLUID W/ GRAM STAIN [[id number]] Collected: 07/27/221029 Order Status: Canceled Lab Status: No result Specimen: PLEURAL FLUID CULTURE, ANAEROBIC [[id number]] Collected: 07/27/221029 Order Status: Canceled Lab Status: No result Specimen: PLEURAL FLUID CULTURE, BODY FLUID W/ GRAM STAIN [[id number]] (Susceptibility) Collected: 07/27/221029 Order Status: Completed Lab Status: Final result Updated: 07/31/22 0751 Specimen: PLEURAL FLUID Spec. Description PLEURAL FLUID: RT Special Requests: NO SPECIAL REQUEST Gram Stain Result -- MANY NEUTROPHILS SEEN Gram Stain Result NO ORGANISMS SEEN Culture Result: -- RARE STAPHYLOCOCCUS EPIDERMIDIS Susceptibility Staphylococcus epidermidis ARLEN (VITEK) CLINDAMYCIN Sensitive ERYTHROMYCIN Sensitive GENTAMICIN Sensitive OXACILLIN Sensitive PENICILLIN G Resistant RIFAMPIN Sensitive TETRACYCLINE Sensitive TRIMETH-SULFAMETH. Resistant VANCOMYCIN Sensitive CULTURE, ANAEROBIC [[id number]] (Susceptibility) Collected: 07/27/221029 Order Status: Completed Lab Status: Final result Updated: 08/01/22 08 Specimen: SITE Spec. Description SITE: RT PLEURAL FLUID Special Requests: NO SPECIAL REQUEST Culture Result: -- FEW MICROAEROPHILIC STREPTOCOCCUS Susceptibility Microaerophilic streptococcus ARLEN (ETEST) CEFOTAXIME 0.023 Sensitive PENICILLIN G 0.008 Sensitive BLASTOMYCES AG MVISTA (TM), EIA [[id number]] Order Status: No result Lab Status: No result Specimen: BLOOD BLASTOMYCES AG MVISTA (TM), EIA [[id number]] Order Status: No result Lab Status: No result Specimen: URINE CORONAVIRUS (COVID 19) PCR - Asymptomatic patients, may be completed at physician discretion [[id number]] Collected: 07/25/222031 Order Status: Sent Lab Status: No result Specimen: NASOPHARYNGEAL SWAB STREP PNEUMO AG URINE [[id number]] Collected: 07/25/222030 Order Status: Completed Lab Status: Final result Updated: 07/26/221425 Specimen: URINE, VOIDED S. PNEUMONIAE URINARY AG NEGATIVE Comment: PRESUMPTIVE NEGATIVE FOR PNEUMOCOCCAL PNEUMONIA, SUGGESTING NO CURRENT OR RECENT PNEUMOCOCCAL INFECTION. INFECTION DUE TO STREPTOCOCCUS PNEUMONIA CANNOT BE RULED OUT SINCE THE ANTIGEN PRESENT IN THE SAMPLE MAY BELOW THE DETECTION LIMIT OF THE TEST. Specimen Type URINE VOIDED MRSA PCR nares Screening [[id number]] Collected: 07/25/222030 Order Status: Canceled Lab Status: No result Specimen: NASAL CULTURE, BACTERIA, BLOOD [[id number]] Collected: 07/25/221416 Order Status: Completed Lab Status: Final result Updated: 07/30/222144 Specimen: BLOOD Spec. Description BLOOD Special Requests: NO SPECIAL REQUEST Culture Result: NO GROWTH 5 DAYS CULTURE, BACTERIA, BLOOD [[id number]] Collected: 07/25/221415 Order Status: Completed Lab Status: Final result Updated: 07/30/222144 Specimen: BLOOD Spec. Description BLOOD Special Requests: BLOOD-AEROBIC BOTTLE ONLY Culture Result: NO GROWTH 5 DAYS Radiology MEDICATIONS Scheduled medications ??? cefepime 2 g Intravenous Q12H ??? FLUoxetine 20 mg Oral Daily ??? gabapentin 300 mg Oral BID ??? ipratropium-albuterol 1 puff Inhalation Q4H ??? lactated ringers bolus 500 mL Intravenous Once ??? metroNIDAZOLE 500 mg Oral 3 times per day ??? normal saline 3-10 mL Intravenous Q8H ??? polyethylene glycol 17 g Oral BID ??? sterile talc 8 g Intrapleural Once ??? traZODone 100 mg Oral Nightly at bedtime ??? vancomycin 1,000 mg Intravenous Q12H ??? vancomycin pharmacy to dose Intravenous See Admin Instructions Infusion ??? 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 Hydropneumothorax s/p Chesttube??with TPA infusion - IR managing chest tube - Pulm s/p bronch follow cultures prelim gram neg rods Pleural fluid staph epi and microaerophilic strep on cefepime, vancomycin flagyl S/P VATS today per CTS - continues to have chest tube with cxr tomorrow Follow intra op cultures cytology Small pericardial effusion on echo Chronic anemia needing transfusion hh stable monitor post op Chronic back pain Anxiety/depression History of tobacco abuse Chronic compression fracture of L3 Lumbar spondylosis History of back trauma ?dvtp resume lovenox tomorrow Seen post op alert awake except for mild discomfort no distress tolerating antibiotics ? Continue supportive care cxr labs in am await cultures and improvement LANRE WINTER MD 3:34 PM 08/02/2022 APEUTIC SPECIALIST * Adali Henry, NUTRITION SERVICES AIDE - 08/02/2022 12:50 PM CST [facility]??PROGRESS??NOTE ?? Reason for Admission:?Respiratory failure (CMS/HCC) ?? Reason for Consult:??Respiratory failure, necrotizing pneumonia,??possible loculated??effusion??- empyema or abscess vs bronchopleural fistula ? ASSESSMENT/PLAN Ray Phillips??is a 67-year-old??male, with history of??chronic back pain,??50-pk year history smoking??who presented??with worsening shortness of breath over??2-3 week period. Present[address] with CT imaging concerning for loculated fluid collection in right posterior pleural cavity - pneumonia vs empyema or abscess vs bronchopleural fistula. Concern for malignancy as well given history of asbestos exposure, smoking history, and family history of lung cancer. Requiring 8-10L nasal cannula. [facility] ID andCT surgery as consulting services as well.??Oxygenation has improved post chest tube placement.??CTsurgery performed VATS with right decortication 08/02. ?? [facility] Pulmonology consulted for??above. ?? Problem List:?? Acute hypoxic respiratory failure Probable COPD? Necrotizing pneumonia of right lower lobe Loculated right pleural effusion Possible??Pulmonary edema Small pericardial effusion Splenomegaly Acute blood loss anemia? History of tobacco abuse ?? Active workup:?? CT imaging reviewed. 08/01 - Labs reviewed, Hgb 8.6, WBC 11.1 Procalcitonin 1.83?? Sputum cultures with GNR ?? [facility] Pulmonology Plan/ Recommendations: -??S/p Chest tube placement 07/27/22 - TPA/dornase per IR for loculations. Pleural fluid cx with rare staph epi, and anaerobic cx with few microaerophilic strep. Exudative fluid with LDH >4000. Likely empyema. - Bronchoscopy completed 07/30. BAL cx with rare gram neg rods. Will continue to follow culture results. - Repeat CT 07/31 appears to still have loculated collection, hydropneumothorax. - VATS decortication done 08/02. Patient tolerated well. Chest tube to -20 suction with 250 mL bloody drainage in atrium. - ID is managing antibiotics - currently on Vanc, Cefepime, Flagyl. Thank you for the consult. We will continue to follow. ?? Adali Henry, CRESCENCIO 08/02/2022 SUBJECTIVE Patient wondering when his surgery will be. Feels okay otherwise. Reports minimal cough, not producing sputum this morning. Denies shortness of breath, wheeze, fevers, chills, chest pain. Review of Systems All other systems reviewed and are negative. OBJECTIVE Vitals: Filed Vitals: 08/02/22 1013 08/02/22 1014 08/02/22 1015 08/02/22 1045 BP: (!) 87/51 (!) 85/56 Pulse: 65 63 Resp: 18 18 Temp: TempSrc: SpO2: 92% 95% (!) 73% 95% Weight: Height: Physical Exam Constitutional: General: He is not in acute distress. Appearance: Normal appearance. He is normal weight. HENT: Head: Normocephalic and atraumatic. Mouth/Throat: Mouth: Mucous membranes are moist. Eyes: General: No scleral icterus. Extraocular Movements: Extraocular movements intact. Cardiovascular: Rate and Rhythm: Normal rate and regular rhythm. Pulses: Normal pulses. Heart sounds: Normal heart sounds. Pulmonary: Effort: Pulmonary effort is normal. No respiratory distress. Breath sounds: No wheezing. Comments: Chest tube in place right side. Breath sounds diminished right middle and lower lobe. Abdominal: General: Bowel sounds are normal. Palpations: Abdomen is soft. Musculoskeletal: Right lower leg: No edema. Left lower leg: No edema. Skin: General: Skin is warm and dry. Neurological: General: No focal deficit present. Mental Status: He is alert and oriented to person, place, and time. Psychiatric: Mood and Affect: Mood normal. Behavior: Behavior normal. Medications: ??? cefepime 2 g Intravenous Q12H ??? FLUoxetine 20 mg Oral Daily ??? gabapentin 300 mg Oral BID ??? ipratropium-albuterol 1 puff Inhalation Q4H ??? lactated ringers bolus 500 mL Intravenous Once ??? metroNIDAZOLE 500 mg Oral 3 times per day ??? normal saline 3-10 mL Intravenous Q8H ??? polyethylene glycol 17 g Oral BID ??? sterile talc 8 g Intrapleural Once ??? traZODone 100 mg Oral Nightly at bedtime ??? vancomycin 1,000 mg Intravenous Q12H ??? vancomycin pharmacy to dose Intravenous See Admin Instructions ??? lactated ringers PRN: acetaminophen, albuterol sulfate HFA, alteplase, cyclobenzaprine, HYDROcodone- acetaminophen, influenza virus vaccine (QUAD), lidocaine, LORazepam, morphine, morphine, normal saline, ondansetron, senna-docusate, sodium chloride Allergies Allergen Reactions ??? Motrin [Ibuprofen] Shortness of Breath ??? Nsaids Shortness of Breath and GI Upset ??? Prednisone Shortness of Breath Intake/Output Summary (Last 24 hours) at 08/02/2022 1250 Last data filed at 08/02/2022 0918 Gross per 24 hour Intake 1200 ml Output 340 ml Net 860 ml Labs: Recent Labs Lab 07/26/22 1255 07/27/22 0240 07/28/22 0703 07/31/22 0941 08/01/22 0242 WBC -- 21.3* 13.5* 16.2* 11.1* RBC -- 1.98* 2.51* 3.07* 2.58* HGB 7.1* 6.5* 8.3* 10.1* 8.6* HCT 21.5* 20.2* 25.1* 31.0* 26.4* MCV -- 102.0* 100.0 101.0* 102.3* MCH -- 32.8* 33.1* 32.9* 33.3* MCHC -- 32.2* 33.1 32.6* 32.6* PLT -- 347 303 277 246 RDW -- 14.2 14.7* 15.3* 15.4* NEUC -- 20.24* 11.61* 14.00* 8.96* LYMC -- 0.85 1.08 1.26 1.27 MONOC -- 0.21 0.81 0.59 0.60 EOSC -- 0.00 0.00 0.01 0.12 BASOC -- 0.00 0.00 0.02 0.01 Recent Labs Lab 07/27/22 0240 07/28/22 0703 07/31/22 1113 08/01/22 0242 08/01/22 1131 NA 138 137 137 140 138 K 3.7 4.0 3.6 3.4* 3.9 CL 106 105 104 107 107 CO2 26.0 28.7 27.8 27.2 24.1 BUN 22* 19* 20* 19* 16 CR 0.91 0.73 0.74 0.77 0.70 GLU -- 98 106 145* -- CA 8.2* 7.9* 8.1* 8.1* 7.9* TP -- -- 5.6* 5.0* -- ALB -- -- 1.9* 1.7* -- TBIL -- -- 0.3 0.4 -- ALKP -- -- 54 50 -- AST -- -- 8* 8* -- ALT -- -- 15* 14* -- Recent Imaging: Radiology Results (Last 48 hours) 08/02/22 0958 XR CHEST PORTABLE Final result Impression: IMPRESSION: 1. Unchanged bibasilar opacities. Ordered By: EDVIN POLLACK Interpreted By: Atilio Read MD, 08/02/2022 10:55 AM Cosigned by Katie Paula MD at 08/02/2022 7:52 PM THERAPEUTIC SPECIALIST APEUTIC SPECIALIST APEUTIC SPECIALIST Associated attestation - Katie Paula MD - 08/02/2022 7:52 PM THERAPEUTIC SPECIALIST [facility] Pulmonary and Critical Care Medicine Attending Note: I reviewed with the resident the medical history and the resident???s findings on physical examination. I reviewed the patient's labs, and imaging studies. I discussed with the resident the patient???s diagnosis and concur with the treatment plan as documented in the resident note. Thank you for the consult * Ford Tay - 08/02/2022 11:56 AM CST Vancomycin Pharmacokinetic Progress Note Day 8 of therapy Ray Phillips is a 67-year-old male for which pharmacy has been consulted to dose vancomycin for pleural fluid growing Staphylococcus Epidermidis. Other antibiotics ordered include azithromycin 500 mg IV Q24H (07/25-07/29), cefepime 2 mg IV Q12H (07/25-) and metronidazole 500 mg Q8H (07/30-) Historical vancomycin use: vancomycin 1000 mg x1 07/23/22 @2330 Allergies: Allergies Allergen Reactions ??? Motrin [Ibuprofen] Shortness of Breath ??? Nsaids Shortness of Breath and GI Upset ??? Prednisone Shortness of Breath Height: 5' 5 (1.651 m) Weight: 67.5 kg (148 lb 12.8 oz) Body mass index is 24.76 kg/m??. Temp (24 hr max): Temp Av ??F (36.7 ??C) Min: 96.7 ??F (35.9 ??C) Max: 99.7 ??F (37.6 ??C) Today's labs and vitals: Lab Results Component Value Date/Time WBC 11.1 (H) 08/01/2022 02:42 AM WBC 16.2 (H) 07/31/2022 09:41 AM WBC 13.5 (H) 07/28/2022 07:03 AM WBC 21.3 (H) 07/27/2022 02:40 AM WBC 17.5 (H) 07/26/2022 02:38 AM Lab Results Component Value Date/Time CR 0.70 08/01/2022 11:31 AM CR 0.77 08/01/2022 02:42 AM CR 0.74 07/31/2022 11:13 AM CR 0.73 07/28/2022 07:03 AM CR 0.91 07/27/2022 02:40 AM CrCl = estimated creatinine clearance is 91.5 mL/min (based on SCr of 0.7 mg/dL). Intake/Output Summary (Last 24 hours) at 08/02/2022 1156 Last data filed at 08/02/2022 0918 Gross per 24 hour Intake 1200 ml Output 340 ml Net 860 ml Pertinent Cultures: Date Drawn Site Organism Pertinent Sensitivity 07/25 BCX 2/2 NGTD Strep PNU Urine Negative 07/28 Sputum GPC GNR Alpha Strep 07/29 Sputum Alpha Strep, moderate presuptive CA 07/30 Bronch wash Many neutrophils, culture pending 07/27 (last updated 07/31) Pleural fluid Staph epi Sensitive to clindamycin, erythromycin, gentamicin, oxacillin, rifampin, tetracycline, and vancomycin 07/27 (last updated 08/01) Pleural fluid Microaerophilic strep Sensitive to cefotaxime and Penicillin G No pertinent past Epic positive culture history Levels: Date Time Level AUC Dose Comments 07/28 0703 7 336 1.75 gm x1 1.25 gm x2 24h 3m 07/30 0617 24.4 464 1.75 gm x1 1.25 gm x2 1.00 gm x4 3h 55m 08/01 1131 18.7 535 1.75 gm x1 1.25 gm x2 1.00 gm x8 8 h 50 m Assessment: Ray Phillips is a 67-year-old male who is currently receiving vancomycin. AUC goal is 400 - 600 Current AUC level is Therapeutic Renal function is Fluctuating SCr 0.57-->0.91-->0.73 -->0.74-->0.77 (yesterday am) WBC improving, 11.1 yesterday am DE[facility]I ID is consulted Plan: Antibiotic Plan: Continue scheduled dosing with 1000 mg q12h (est. AUC of 508) Next level due: Monday 08/06 w/ AM labs Pharmacy will continue to follow cultures, clinical status, and appropriateness of therapy. Thank you for the consult. Pharmacy Consult per Dr. Srinath Tay Phone: [phone] 08/02/2022 11:56 AM Cosigned by Maria Antonia Quiñones PharmD at 08/02/2022 3:49 PM THERAPEUTIC SPECIALIST APEUTIC SPECIALIST APEUTIC SPECIALIST APEUTIC SPECIALIST APEUTIC SPECIALIST * Angela Dawkins RN - 08/02/2022 8:55 AM CSTSummary: D/C plans IDBR done with Dr Maggy HARRIS MD to discuss POC/D/C plans. See notes below. 08/02/22 1550 Interdisciplinary Group Conference Team Members Present Case/Care management;Physician Barriers to Discharge Barriers Not Medically ready Not Medically ready follow up Pt to have VATS today. Continue IMC status. APEUTIC SPECIALIST * Lanre Winter MD - 08/01/2022 2:57 PM CST Progress note CC:- F/U OF loculated effusion/empyema SUBJECTIVE Patient seen and examined. Continues to be on RA awaiting VATS was explained CT findings and intervention planned Tolerating antibiotics without diarrhoea OBJECTIVE Wt Readings from Last 3 Encounters: 07/28/22 67.5 kg (148 lb 12.8 oz) Temp: 98.7 ??F (37.1 ??C) BP Readings from Last 3 Encounters: 08/01/22 120/70 Pulse Readings from Last 3 Encounters: 08/01/22 75 Review of Systems Constitutional: Negative for chills, fever and weight loss. HENT: Negative for congestion and ear pain. Eyes: Negative for blurred vision and double vision. Respiratory: Negative for cough, hemoptysis, sputum production, shortness of breath and wheezing. Cardiovascular: Negative for chest pain, palpitations, orthopnea, leg swelling and PND. Gastrointestinal: Negative for abdominal pain, blood in stool, nausea and vomiting. Genitourinary: Negative for dysuria, flank pain and hematuria. Musculoskeletal: Negative for back pain, joint pain and neck pain. Skin: Negative for rash. Neurological: Negative for speech change, focal weakness and loss of consciousness. Endo/Heme/Allergies: Negative for polydipsia. Psychiatric/Behavioral: Negative for depression and suicidal ideas. The patient is not nervous/anxious. All other systems reviewed and are negative. PHYSICAL EXAMINATION: Physical Exam Vitals and nursing note reviewed. HENT: Head: Normocephalic. Eyes: General: No scleral icterus. Conjunctiva/sclera: Conjunctivae normal. Pupils: Pupils are equal, round, and reactive to light. Neck: Vascular: No JVD. Cardiovascular: Rate and Rhythm: Normal rate and regular rhythm. Pulses: Normal pulses. Heart sounds: No murmur heard. Pulmonary: Effort: Pulmonary effort is normal. No accessory muscle usage or respiratory distress. Breath sounds: Normal breath sounds. No wheezing. Abdominal: General: Bowel sounds are normal. There is no distension. Palpations: Abdomen is soft. There is no mass. Tenderness: There is no abdominal tenderness. There is no guarding or rebound. Musculoskeletal: General: Normal range of motion. Cervical back: Normal range of motion and neck supple. Skin: Findings: No erythema or rash. Neurological: Mental Status: He is alert and oriented to person, place, and time. Cranial Nerves: No cranial nerve deficit. Coordination: Coordination normal. Psychiatric: Mood and Affect: Mood and affect normal. LABS: Recent Labs 07/31/22 0941 08/01/22 0242 WBC 16.2* 11.1* HGB 10.1* 8.6* HCT 31.0* 26.4* MCV 101.0* 102.3* PLT 277 246 RBC 3.07* 2.58* Recent Labs 07/31/22 1113 08/01/22 0242 08/01/22 1131 ALT 15* 14* -- AST 8* 8* -- CO2 27.8 27.2 24.1 CL 104 107 107 GLU 106 145* -- K 3.6 3.4* 3.9 NA 137 140 138 BUN 20* 19* 16 Intake/Output Summary (Last 24 hours) at 08/01/2022 1457 Last data filed at 08/01/2022 0505 Gross per 24 hour Intake -- Output 20 ml Net -20 ml Microbiology Results (last 14 days) Procedure Component Value Units Date/Time CULTURE, FUNGUS [[id number]] Order Status: No result Lab Status: No result Specimen: BRONCHOALVEO LAV, RT LWR CULTURE TB/AFB OTHER (TYPE IN COMMENTS) [[id number]] Order Status: No result Lab Status: No result Specimen: BRONCHOALVEO LAV, RT LWR SMEAR,FLUOR STAIN,ACID FAST [[id number]] Order Status: No result Lab Status: No result Specimen: BRONCHOALVEO LAV, RT LWR CULTURE VIRAL RESPIRATORY RAPID [[id number]] Order Status: No result Lab Status: No result Specimen: BRONCHOALVEO LAV, RT LWR CULTURE RESPIRATORY W/ GRAM STAIN [[id number]] Order Status: No result Lab Status: No result Specimen: BRONCHIAL WASHING CULTURE, FUNGUS [[id number]] Order Status: No result Lab Status: No result Specimen: BRONCHIAL WASHING CULTURE TB/AFB OTHER (TYPE IN COMMENTS) [[id number]] Order Status: No result Lab Status: No result Specimen: BRONCHIAL WASHING SMEAR,FLUOR STAIN,ACID FAST [[id number]] Order Status: No result Lab Status: No result Specimen: BRONCHIAL WASHING CULTURE VIRAL RESPIRATORY RAPID [[id number]] Order Status: No result Lab Status: No result Specimen: BRONCHIAL WASHING CULTURE, QUANTITATIVE W/ GRAM STAIN [[id number]] Order Status: No result Lab Status: No result Specimen: BRONCHOALVEO LAV, RT LWR CULTURE, FUNGUS [[id number]] Collected: 07/30/221529 Order Status: No result Lab Status: In process Updated: 07/30/22 1701 CULTURE RESPIRATORY W/ GRAM STAIN [[id number]] Collected: 07/30/221529 Order Status: Completed Lab Status: Preliminary result Updated: 07/31/221556 Specimen: SITE Spec. Description SITE: BRONCH WASH Special Requests: NO SPECIAL REQUEST Gram Stain Result -- MANY NEUTROPHILS SEEN Gram Stain Result NO ORGANISMS SEEN Culture Result: -- FEW YEAST , ID UPON REQUEST SMEAR,FLUOR STAIN,ACID FAST [[id number]] Collected: 07/30/221529 Order Status: No result Lab Status: In process Updated: 07/30/22 170 CULTURE TB/AFB OTHER [[id number]] Collected: 07/30/221529 Order Status: No result Lab Status: In process Updated: 07/30/22 170 CULTURE, QUANTITATIVE W/ GRAM STAIN [[id number]] Collected: 07/30/221529 Order Status: Completed Lab Status: Preliminary result Updated: 07/31/221557 Specimen: SITE Spec. Description SITE: BAL RLL Special Requests: NO SPECIAL REQUEST Gram Stain Result <10 NEUTROPHILS PER LPF Gram Stain Result <10 EPITHELIAL CELLS PER LPF Gram Stain Result -- RARE GRAM NEGATIVE RODS Culture Result: NO GROWTH 1 DAY CULTURE, FUNGUS [[id number]] Collected: 07/30/221529 Order Status: Canceled Lab Status: No result SMEAR,FLUOR STAIN,ACID FAST [[id number]] Collected: 07/30/221529 Order Status: Canceled Lab Status: No result CULTURE TB/AFB OTHER [[id number]] Collected: 07/30/221529 Order Status: Canceled Lab Status: No result CULTURE CMV [[id number]] Collected: 07/30/221529 Order Status: No result Lab Status: In process Updated: 07/31/22 1431 CULTURE HERPES [[id number]] Collected: 07/30/221529 Order Status: No result Lab Status: In process Updated: 07/31/22 1432 CULTURE VIRAL RESPIRATORY RAPID [[id number]] Collected: 07/30/22 1530 Order Status: No result Lab Status: In process Updated: 07/31/22 1435 CULTURE RESPIRATORY W/ GRAM STAIN [[id number]] Collected: 07/28/221424 Order Status: Completed Lab Status: Final result Updated: 07/31/22 0847 Specimen: SPUTUM, EXPECTORATED Spec. Description SPUTUM, EXPECTORATED Special Requests: NO SPECIAL REQUEST Gram Stain Result >25 NEUTROPHILS PER LPF Gram Stain Result <10 EPITHELIAL CELLS PER LPF Gram Stain Result -- RARE BUDDING YEAST CELLS Gram Stain Result -- RARE GRAM POSITIVE COCCI IN PAIRS Gram Stain Result -- RARE GRAM NEGATIVE RODS Culture Result: -- FEW ALPHA STREPTOCOCCUS Culture Result: -- MODERATE PRESUMPTIVE TETE ALBICANS CULTURE, FUNGUS [[id number]] Collected: 07/28/221424 Order Status: Sent Lab Status: In process Updated: 07/31/22 1336 Specimen: SPUTUM, EXPECTORATED CULTURE TB/AFB OTHER (TYPE IN COMMENTS) [[id number]] Collected: 07/28/221424 Order Status: Sent Lab Status: No result Specimen: SPUTUM, EXPECTORATED SMEAR,FLUOR STAIN,ACID FAST [[id number]] Collected: 07/28/221424 Order Status: No result Lab Status: In process Updated: 07/28/22 1612 HISTOPLASMA ANTIGEN [[id number]] Collected: 07/28/221423 Order Status: Sent Lab Status: No result Specimen: BLOOD HISTOPLASMA ANTIGEN [[id number]] Collected: 07/28/221423 Order Status: Canceled Lab Status: No result Specimen: BLOOD GLUCOSE, BODY FLUID [[id number]] Order Status: Canceled Lab Status: No result Specimen: PLEURAL FLUID PH BODY FLUID [[id number]] Order Status: Canceled Lab Status: No result Specimen: PLEURAL FLUID CULTURE, BODY FLUID W/ GRAM STAIN [[id number]] Order Status: Canceled Lab Status: No result Specimen: PLEURAL FLUID CULTURE, ANAEROBIC [[id number]] Order Status: Canceled Lab Status: No result Specimen: PLEURAL FLUID CULTURE, FUNGUS [[id number]] Order Status: Canceled Lab Status: No result Specimen: PLEURAL FLUID LDH BODY FLUID [[id number]] Collected: 11/25/22 1030 Order Status: Completed Lab Status: Final result Updated: 07/27/22 1522 Specimen: PLEURAL FLUID FLUID LDH >4,000 UNITS/L Comment: REFERENCE RANGE NOT ESTABLISHED FOR THIS BODY FLUID. SOURCE (FLUID) PLEURAL FLUID CELL COUNT W/ DIFF BODY FLUID [[id number]] Collected: 07/27/221029 Order Status: Completed Lab Status: Final result Updated: 07/27/22 1545 Specimen: PLEURAL FLUID SOURCE (FLUID) PLEURAL FLUID FL WBC 144.450 x10'3/uL Comment: REFERENCE RANGE NOT ESTABLISHED FL RBC 0.090 x10'6/uL Comment: REFERENCE RANGE NOT ESTABLISHED DIFFERENTIAL MANUAL DIFFERENTIAL PERFORMED ON CONCENTRATED CYTOSPIN CELLS COUNTED 100 No COUNTED SEGS (FLUID) 97 % LYMPHS (FLUID) 3 % PROTEIN TOTAL FLUID [[id number]] Collected: 07/27/221029 Order Status: Completed Lab Status: Final result Updated: 07/27/22 152 Specimen: PLEURAL FLUID PROTEIN (FLUID) 3.5 G/DL Comment: REFERENCE RANGE NOT ESTABLISHED FOR THIS BODY FLUID. SOURCE (FLUID) PLEURAL FLUID CULTURE, BODY FLUID W/ GRAM STAIN [[id number]] Collected: 07/27/221029 Order Status: Canceled Lab Status: No result Specimen: PLEURAL FLUID CULTURE, ANAEROBIC [[id number]] Collected: 07/27/221029 Order Status: Canceled Lab Status: No result Specimen: PLEURAL FLUID CULTURE, BODY FLUID W/ GRAM STAIN [[id number]] (Susceptibility) Collected: 07/27/221029 Order Status: Completed Lab Status: Final result Updated: 07/31/22 0751 Specimen: PLEURAL FLUID Spec. Description PLEURAL FLUID: RT Special Requests: NO SPECIAL REQUEST Gram Stain Result -- MANY NEUTROPHILS SEEN Gram Stain Result NO ORGANISMS SEEN Culture Result: -- RARE STAPHYLOCOCCUS EPIDERMIDIS Susceptibility Staphylococcus epidermidis ARLEN (VITEK) CLINDAMYCIN Sensitive ERYTHROMYCIN Sensitive GENTAMICIN Sensitive OXACILLIN Sensitive PENICILLIN G Resistant RIFAMPIN Sensitive TETRACYCLINE Sensitive TRIMETH-SULFAMETH. Resistant VANCOMYCIN Sensitive CULTURE, ANAEROBIC [[id number]] (Susceptibility) Collected: 07/27/221029 Order Status: Completed Lab Status: Final result Updated: 08/01/22 0826 Specimen: SITE Spec. Description SITE: RT PLEURAL FLUID Special Requests: NO SPECIAL REQUEST Culture Result: -- FEW MICROAEROPHILIC STREPTOCOCCUS Susceptibility Microaerophilic streptococcus ARLEN (ETEST) CEFOTAXIME 0.023 Sensitive PENICILLIN G 0.008 Sensitive BLASTOMYCES AG MVISTA (TM), EIA [[id number]] Order Status: No result Lab Status: No result Specimen: BLOOD BLASTOMYCES AG MVISTA (TM), EIA [[id number]] Order Status: No result Lab Status: No result Specimen: URINE CORONAVIRUS (COVID 19) PCR - Asymptomatic patients, may be completed at physician discretion [[id number]] Collected: 07/25/222031 Order Status: Sent Lab Status: No result Specimen: NASOPHARYNGEAL SWAB STREP PNEUMO AG URINE [[id number]] Collected: 07/25/222030 Order Status: Completed Lab Status: Final result Updated: 07/26/221425 Specimen: URINE, VOIDED S. PNEUMONIAE URINARY AG NEGATIVE Comment: PRESUMPTIVE NEGATIVE FOR PNEUMOCOCCAL PNEUMONIA, SUGGESTING NO CURRENT OR RECENT PNEUMOCOCCAL INFECTION. INFECTION DUE TO STREPTOCOCCUS PNEUMONIA CANNOT BE RULED OUT SINCE THE ANTIGEN PRESENT IN THE SAMPLE MAY BELOW THE DETECTION LIMIT OF THE TEST. Specimen Type URINE VOIDED MRSA PCR nares Screening [[id number]] Collected: 07/25/222030 Order Status: Canceled Lab Status: No result Specimen: NASAL CULTURE, BACTERIA, BLOOD [[id number]] Collected: 07/25/22 141 Order Status: Completed Lab Status: Final result Updated: 07/30/222144 Specimen: BLOOD Spec. Description BLOOD Special Requests: NO SPECIAL REQUEST Culture Result: NO GROWTH 5 DAYS CULTURE, BACTERIA, BLOOD [[id number]] Collected: 07/25/221415 Order Status: Completed Lab Status: Final result Updated: 07/30/222144 Specimen: BLOOD Spec. Description BLOOD Special Requests: BLOOD-AEROBIC BOTTLE ONLY Culture Result: NO GROWTH 5 DAYS Radiology MEDICATIONS Scheduled medications ??? cefepime 2 g Intravenous Q12H ??? [START ON 08/02/2022] chlorhexidine 15 mL Mouth/Throat Once ??? FLUoxetine 20 mg Oral Daily ??? gabapentin 300 mg Oral BID ??? ipratropium-albuterol 1 puff Inhalation Q4H ??? lidocaine-EPINEPHrine 20 mL Intradermal Once ??? metroNIDAZOLE 500 mg Oral 3 times per day ??? traZODone 100 mg Oral Nightly at bedtime ??? vancomycin 1,000 mg Intravenous Q12H ??? vancomycin pharmacy to dose Intravenous See Admin Instructions Infusion PRN acetaminophen, albuterol sulfate HFA, alteplase, cyclobenzaprine, fentaNYL, HYDROcodone-acetaminophen, influenza virus vaccine (QUAD), lidocaine, LORazepam, morphine, morphine, ondansetron, sodium chloride ASSESSMENT /PLAN Ray Phillips is a 67-year-old male with the following history as recorded in EpicCare: Problem List Items Addressed This Visit None PLAN: Acute hypoxic respiratory failure- resolved ?? COPD exacerbation improved ?? 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 Small pericardial effusion Splenomegaly with hypodense lesions. Cysts on US ?? Chronic anemia needing transfusion hh stable 8.3 to 8.6 ?? Chronic back pain Anxiety/depression History of tobacco abuse Chronic compression fracture of L3 Lumbar spondylosis History of back trauma ? Continue supportive care Mechanical DVT prophylaxis as going for VATS tomorrow ? I SHOWED PT AND HIS CT scan images and explained plan of care - need cultures, improvement in loculated effusions removal of chest tube , iv antibiotics to be arranged - time spent was 45 mins With more than 50% of time spent in education and counselling LANRE WINTER MD 2:57 PM 08/01/2022 APEUTIC SPECIALIST * Dayami Robbins MD - 08/01/2022 2:48 PM CSTSummary: [facility] ID progress note [facility] INFECTIOUS DISEASE PROGRESS NOTE Attending Provider:Dr. Robbins PCP: JOE TAM DO Reason for Consultation: Loculated pleural effusions, Pneumonia ASSESSMENT AND PLAN Ray Phillips is a 67-year-old male with medical history of chronic tobacco use who was transferred from [facility] near [place] for treatment resistant pneumonia and loculated pleural effusions. Currently on Vancomycin, Cefepime, and metronidazole. Continue vancomycin for pleural fluid growing staph epi, cefepime for GNR in BAL, and flagyl for concerns of abscess on initial imaging. Patient is s/p chesttube placement on 07/27, and bronchoscopy on 07/30. [facility] ID has been consulted for antibiotic management of necrotizing pneumonia and loculated effusions. Diagnoses: Acute Hypoxic Respiratory Failure 2/2 Pneumonia vs. Loculated Effusions Community Acquire Pneumonia, bacterial vs. Fungal Loculated Pleural Effusions Air-Fluid level on imaging concerning for hydropneumothorax, empyema, or fistula Possible COPD Anemia History of Asbestos exposure [facility] Infectious Disease Team Recommendations -Continue Vancomycin (per pharmacy dosing) for pleural fluid growing Staphylococcus Epidermidis -Continue Cefepime for BAL growing GNR pending speciation. -Continue Metronidazole PO 500 mg q 8h for concern for empyema/abscess on previous CT imaging. -Reached out to microbiology for yeast identification. -Patient planned for VATS with surgery tomorrow, please send intra op cultures -Appreciate Pulmonology assistance. -Plan as above discussed with patient, all voiced questions/concerns addressed, voices agreement and understanding with plan. Thank you for consulting [facility] Infectious Disease, we will continue to follow. Paulina Dale APRN [facility] Infectious Disease 08/01/2022 Teaching physician note: Infectious Diseases Attending Physician: Patient personally interviewed and examined. Labs and vitals reviewed. [facility] Infectious Disease mid-level provider's note reviewed and findings verified. Case discussed with the Infectious Disease team SUBJECTIVE Patient seen and examined this morning resting in bed. No acute events overnight. Patient afebrile.Patient endorses mild SOB but states it has improved. He denies abdominal pain, chest pain, N/V/D, rash. Review of Systems 10 point ROS negative except as stated in subjective OBJECTIVE Infectious Evaluation Summary Labs SCr 0.77 WBC 11.1 Images 07/31 CT chest: 1. Focal loculated hydropneumothorax, right posterior inferior pleura, unchanged in size; with significantly decreased fluid component and increased air component. Right pleural catheter in place. Probable pneumothorax ex vacuo. Unlikely bronchopleural fistula. 2. Possible interstitial pulmonary edema. Small left pleural effusion. 3. Possible superimposed atypical viral infectious interstitial pneumonia, improved. 4. Emphysema. 07/31 CXR: 1. Right-sided chest remains in place. Persistent pleural-based opacity in the lateral right lower chest likely representing some residual loculated effusion. 2. Increased left basilar opacity likely due to increased atelectasis with possible small effusion.In addition there is some increased groundglass opacity overlying the left midlung. 07/30 CXR: 1) Interval decrease in small left pleural effusion and left basilar consolidation. No other significant change. 07/29 US ABD: 1. 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 The smallest of the 3 cyst demonstrates thin internal septation but appears benign. No follow-up imaging is recommended. 2. Splenomegaly. 07/27 TTE: The left ventricular size is normal. The calculated ejection fraction is 61%. Wall motion appears normal in all segments. The right ventricle is normal in size and function. No evidence of pericardial effusion. Aortic root is mildly dilated. Ascending aorta is mildly dilated. Inferior vena cava shows >50% collapse with respiration consistent with normal right atrial pressure. No significant valvular heart disease. Micro 07/25 Blood Culture x2 : NTD 07/25 Strep Pneumo: negative 07/25 Legionella: negative 07/26 Mycoplasma: Pending 07/26 HIV Ab: Negative 07/26 Histoplasma: Pending 07/26 Blastomyces: Pending 07/27 right pleural fluid anaerobic: Microaerophilic streptococcus 07/27 Right pleural fluid: Staphylococcus epidermidis 07/27 Right Pleural fluid cell count: Protein: 3.5 WBC 144,450 RBC: 90,000 Segs: 97% Lymphs: 3% LDH: >4,000 07/28 Sputum: Alpha Streptococcus, Tete Albicans 07/30 BAL: GNR 07/30 Bronch Wash: NG Antimicrobial Regimen Unknown Abx regiment at [facility] Vancomycin IV 1.25g every 24h(07/25 - present) Cefepime IV 2g every 12h(07/25 - present) Metronidazole 500mg q8h (07/30-present) Azithromycin IV 500mg every 24 hours (07/25 -07/29) Drug Monitoring Filed Vitals: 07/31/22 2340 08/01/22 0450 08/01/22 0748 08/01/22 1154 BP: 117/75 133/73 118/69 120/70 Pulse: 72 63 70 75 Resp: 15 14 19 Temp: 98.6 ??F (37 ??C) 98.7 ??F (37.1 ??C) 98.7 ??F (37.1 ??C) TempSrc: Oral Oral Oral SpO2: 91% 94% 95% 95% Weight: Height: Physical Exam HENT: Head: Normocephalic. Eyes: General: No scleral icterus. Conjunctiva/sclera: Conjunctivae normal. Pupils: Pupils are equal, round, and reactive to light. Neck: Vascular: No JVD. Cardiovascular: Rate and Rhythm: Normal rate and regular rhythm. Pulses: Normal pulses. Heart sounds: No murmur heard. Pulmonary: Effort: Pulmonary effort is normal. No accessory muscle usage or respiratory distress. Breath sounds: Normal breath sounds. No wheezing. Abdominal: General: Bowel sounds are normal. There is no distension. Palpations: Abdomen is soft. There is no mass. Tenderness: There is no abdominal tenderness. There is no guarding or rebound. Musculoskeletal: General: Normal range of motion. Cervical back: Normal range of motion and neck supple. Skin: Findings: No erythema or rash. Neurological: Mental Status: He is alert and oriented to person, place, and time. Cranial Nerves: No cranial nerve deficit. Coordination: Coordination normal. Psychiatric: Mood and Affect: Mood and affect normal. Current Facility-Administered Medications: acetaminophen (TYLENOL) tablet 650 mg, 650 mg, Oral, Q4H PRN, Tracy Yo MD albuterol sulfate HFA 108 (90 Base) MCG/ACT inhaler 2 puff, 2 puff, Inhalation, Q4H PRN, Tracy Yo MD alteplase (CATHFLO) injection, , , Code/Trauma/Sedation Med, Raul Osuna MD, 2 mg at 07/27/22 1034 ceFEPIme (MAXIPIME) 2 g in sodium chloride (PF) 0.9 % 10 mL IV, 2 g, Intravenous, Q12H, Tracy Yo MD, 2 g at 08/01/22 0505 [START ON 08/02/2022] chlorhexidine (PERIDEX) 0.12 % solution 15 mL, 15 mL, Mouth/Throat, Once, Ross Blackburn MD cyclobenzaprine (FLEXERIL) tablet 10 mg, 10 mg, Oral, TID PRN, Tracy Yo MD, 10 mg at 07/26/22 0828 fentaNYL (SUBLIMAZE) injection, , , Code/Trauma/Sedation Med, Raul Osuna MD, 50 mcg at 014 FLUoxetine (PROzac) capsule 20 mg, 20 mg, Oral, Daily, Tracy Yo MD, 20 mg at 08/01/22 09 gabapentin (NEURONTIN) capsule 300 mg, 300 mg, Oral, BID, Tracy Yo MD, 300 mg at 08/01/22 0906 HYDROcodone-acetaminophen (NORCO) 10-325 MG tablet 1 tablet, 1 tablet, Oral, Q6H PRN, Tracy Yo MD, 1 tablet at 08/01/22 0505 influenza virus vaccine (QUAD) injection 0.5 mL, 0.5 mL, Intramuscular, Once PRN, Florencio Amaya MD ipratropium-albuterol (COMBIVENT RESPIMAT) 20-100 MCG/ACT inhaler 1 puff, 1 puff, Inhalation, Q4H, Lanre Winter MD, 1 puff at 08/01/22 1221 lidocaine (XYLOCAINE) 1 % injection SOLN, , , Code/Trauma/Sedation Med, Raul Osuna MD, 8 mL at 07/27/22 1016 lidocaine-EPINEPHrine 2 %-1:149578 injection 20 mL, 20 mL, Intradermal, Once, Nery Patrick MD LORazepam (ATIVAN) tablet 1 mg, 1 mg, Oral, BID PRN, Tracy Yo MD, 1 mg at 08/01/22 0915 metroNIDAZOLE (FLAGYL) tablet 500 mg, 500 mg, Oral, 3 times per day, Paulina Dale NP, 500 mg at 08/01/22 1433 morphine (MSIR) tablet 30 mg, 30 mg, Oral, Q8H PRN, Tracy oY MD, 30 mg at 08/01/22 1221 morphine injection 1 mg, 1 mg, Intravenous, Q6H PRN, Florencio Amaya MD, 1 mg at 08/01/22 0915 ondansetron (ZOFRAN) injection 4 mg, 4 mg, Intravenous, Q8H PRN, Tracy Yo MD sodium chloride (OCEAN) 0.65 % nasal spray 1 spray, 1 spray, Each Nostril, PRN, Tracy Yo MD, 1 spray at 07/25/222304 traZODone (DESYREL) tablet 100 mg, 100 mg, Oral, Nightly at bedtime, Tracy Yo MD, 100 mg at 07/31/222008 vancomycin 1000 mg in NS 250 mL IVPB, 1,000 mg, Intravenous, Q12H, Florencio Amaya MD, Last Rate: 250 mL/hr at 08/01/22 1436, 1,000 mg at 08/01/22 1436 Pharmacy to dose vancomycin, , , Once AND vancomycin pharmacy to dose placeholder, , Intravenous, See Admin Instructions, Tracy Yo MD APEUTIC SPECIALIST APEUTIC SPECIALIST APEUTIC SPECIALIST APEUTIC SPECIALIST * Adali Henry, NUTRITION SERVICES AIDE - 08/01/2022 11:14 AM CST [facility]??PROGRESS??NOTE ?? Reason for Admission:?Respiratory failure (CMS/HCC) ?? Reason for Consult:??Respiratory failure, necrotizing pneumonia,??possible loculated??effusion??- empyema or abscess vs bronchopleural fistula ? ASSESSMENT/PLAN Ray Phillips??is a 67-year-old??male, with history of??chronic back pain,??50-pk year history smoking??who presented??with worsening shortness of breath over??2- 3 week period. Present[address] with CT imaging concerning for loculated fluid collection in right posterior pleural cavity - pneumonia vs empyema or abscess vs bronchopleural fistula. Concern for malignancy as well given history of asbestos exposure, smoking history, and family history of lung cancer. Requiring 8-10L nasal cannula. [facility] ID andCT surgery as consulting services as well.??Oxygenation has improved post chest tube placement.? [facility] consulted for??above. ?? Problem List:?? Acute hypoxic respiratory failure Probable COPD? Necrotizing pneumonia of right lower lobe Loculated right pleural effusion Possible??Pulmonary edema Small pericardial effusion Splenomegaly Acute blood loss anemia? History of tobacco abuse ?? Active workup:?? CT imaging reviewed. 08/01 - Labs reviewed, Hgb 8.6, WBC 11.1 Procalcitonin 1.83?? Sputum cultures with GNR ?? [facility] Plan/ Recommendations: -??S/p Chest tube placement 07/27/22 - TPA/dornase per IR for loculations. Pleural fluid cx with rare staph epi, and anaerobic cx with few microaerophilic strep. Exudative fluid with LDH >4000. Likely empyema. Continue with -10 suction. Only 20 mL out in 24 hours. No air leak seen. - Bronchoscopy completed 07/30. BAL cx with rare gram neg rods. Will continue to follow culture results. - ID is managing antibiotics - currently on Vanc, Cefepime, Flagyl. - Repeat CT 07/31 appears to still have loculated collection, hydropneumothorax. CTS planning for right VATS decortication on , 08/02. ?? Thank you for the consult. We will continue to follow.? Adali Henry, CRESCENCIO 08/01/2022 SUBJECTIVE Patient wondering when his surgery will be. Feels okay otherwise. Reports minimal cough, not producing sputum this morning. Denies shortness of breath, wheeze, fevers, chills, chest pain. Review of Systems All other systems reviewed and are negative. OBJECTIVE Vitals: Filed Vitals: 07/31/22 1959 07/31/22 2340 08/01/22 0450 08/01/22 0748 BP: 114/63 117/75 133/73 118/69 Pulse: 80 72 63 70 Resp: 15 14 19 Temp: 99.3 ??F (37.4 ??C) 98.6 ??F (37 ??C) 98.7 ??F (37.1 ??C) TempSrc: Oral Oral SpO2: 91% 91% 94% 95% Weight: Height: Physical Exam Constitutional: General: He is not in acute distress. Appearance: Normal appearance. He is normal weight. HENT: Head: Normocephalic and atraumatic. Mouth/Throat: Mouth: Mucous membranes are moist. Eyes: General: No scleral icterus. Extraocular Movements: Extraocular movements intact. Cardiovascular: Rate and Rhythm: Normal rate and regular rhythm. Pulses: Normal pulses. Heart sounds: Normal heart sounds. Pulmonary: Effort: Pulmonary effort is normal. No respiratory distress. Breath sounds: No wheezing. Comments: Chest tube in place right sided. Crackles RLL. Abdominal: General: Bowel sounds are normal. There is no distension. Palpations: Abdomen is soft. Tenderness: There is no abdominal tenderness. There is no guarding. Musculoskeletal: Right lower leg: No edema. Left lower leg: No edema. Skin: General: Skin is warm and dry. Neurological: General: No focal deficit present. Mental Status: He is alert and oriented to person, place, and time. Psychiatric: Mood and Affect: Mood normal. Behavior: Behavior normal. Medications: ??? cefepime 2 g Intravenous Q12H ??? FLUoxetine 20 mg Oral Daily ??? gabapentin 300 mg Oral BID ??? ipratropium-albuterol 1 puff Inhalation Q4H ??? lidocaine-EPINEPHrine 20 mL Intradermal Once ??? metroNIDAZOLE 500 mg Oral 3 times per day ??? traZODone 100 mg Oral Nightly at bedtime ??? vancomycin 1,000 mg Intravenous Q12H ??? vancomycin pharmacy to dose Intravenous See Admin Instructions PRN: acetaminophen, albuterol sulfate HFA, alteplase, cyclobenzaprine, fentaNYL, HYDROcodone-acetaminophen, influenza virus vaccine (QUAD), lidocaine, LORazepam, morphine, morphine, ondansetron, sodium chloride Allergies Allergen Reactions ??? Motrin [Ibuprofen] Shortness of Breath ??? Nsaids Shortness of Breath and GI Upset ??? Prednisone Shortness of Breath Intake/Output Summary (Last 24 hours) at 08/01/2022 1114 Last data filed at 08/01/2022 0505 Gross per 24 hour Intake 360 ml Output 20 ml Net 340 ml Labs: Recent Labs Lab 07/25/22 1416 07/25/22 1723 07/25/22 2056 07/26/22 0238 07/26/22 1255 07/27/22 0240 07/28/22 0707/31/22 0941 08/01/22241 WBC 17.6* -- -- 17.5* -- 21.3* 13.5* 16.2* 11.1* RBC 2.07* -- -- 2.26* -- 1.98* 2.51* 3.07* 2.58* HGB 7.0* < > 7.5* 7.6* 7.1* 6.5* 8.3* 10.1* 8.6* HCT 21.0* < > 23.2* 22.9* 21.5* 20.2* 25.1* 31.0* 26.4* MCV 101.4* -- -- 101.3* -- 102.0* 100.0 101.0* 102.3* MCH 33.8* -- -- 33.6* -- 32.8* 33.1* 32.9* 33.3* MCHC 33.3 -- -- 33.2 -- 32.2* 33.1 32.6* 32.6* PLT 260 -- -- 283 -- 347 303 277 246 RDW 13.6 -- -- 13.8 -- 14.2 14.7* 15.3* 15.4* NEUC 14.78* -- -- 16.80* -- 20.24* 11.61* 14.00* 8.96* LYMC 2.29 -- -- 0.53* -- 0.85 1.08 1.26 1.27 MONOC 0.53 -- -- 0.18 -- 0.21 0.81 0.59 0.60 EOSC 0.00 -- -- 0.00 -- 0.00 0.00 0.01 0.12 BASOC 0.00 -- -- 0.00 -- 0.00 0.00 0.02 0.01 < > = values in this interval not displayed. Recent Labs Lab 07/25/22 1416 07/26/22 0238 07/27/22 0240 07/28/22 0703 07/31/22 1113 08/01/22 0242 NA 137 135* 138 137 137 140 K 3.4* 4.5 3.7 4.0 3.6 3.4* CL 106 105 106 105 104 107 CO2 24.7 26.8 26.0 28.7 27.8 27.2 BUN 17 15 22* 19* 20* 19* CR 0.57* 0.66* 0.91 0.73 0.74 0.77 GLU 85 137* -- 98 106 145* CA 7.8* 8.1* 8.2* 7.9* 8.1* 8.1* TP 5.3* 5.3* -- -- 5.6* 5.0* ALB 1.5* 1.5* -- -- 1.9* 1.7* TBIL 0.3 0.2 -- -- 0.3 0.4 ALKP 61 60 -- -- 54 50 AST 23 19 -- -- 8* 8* ALT 23 20 -- -- 15* 14* Recent Imaging: Radiology Results (Last 48 hours) 07/31/[address] CHEST WO CON Final result Impression: IMPRESSION: 1. Focal loculated hydropneumothorax, right posterior inferior pleura, unchanged in size; with significantly decreased fluid component and increased air component. Right pleural catheter in place. Probable pneumothorax ex vacuo. Unlikely bronchopleural fistula. 2. Possible interstitial pulmonary edema. Small left pleural effusion. 3. Possible superimposed atypical viral infectious interstitial pneumonia, improved. 4. Emphysema. Ordered By: ARACELI HUDSON Interpreted By: Atilio Read MD, 07/31/2022 1:56 PM 07/31/22 0600 XR CHEST PORTABLE Final result Impression: IMPRESSION: 1. Right-sided chest remains in place. Persistent pleural-based opacity in the lateral right lower chest likely representing some residual loculated effusion. 2. Increased left basilar opacity likely due to increased atelectasis with possible small effusion. In addition there is some increased groundglass opacity overlying the left midlung. Ordered By: RODNEY NOLASCO Interpreted By: Jin Saravia MD, 07/31/2022 9:13 AM Cosigned by Katie Paula MD at 08/01/2022 7:49 PM THERAPEUTIC SPECIALIST APEUTIC SPECIALIST APEUTIC SPECIALIST Associated attestation - Katie Paula MD - 08/01/2022 7:49 PM THERAPEUTIC SPECIALIST [facility] Pulmonary and Critical Care Medicine Attending Note: I reviewed with the resident the medical history and the resident???s findings on physical examination. I reviewed the patient's labs and imaging studies. I discussed with the resident the patient???s diagnosis and concur with the treatment plan as documented in the resident note. Thank you for the consult * Ford Tay - 08/01/2022 10:15 AM CST Vancomycin Pharmacokinetic Progress Note Day 7 of therapy Ray Phillips is a 67-year-old male for which pharmacy has been consulted to dose vancomycin for Nectrotizing Pneumonia of right lower lung. Loculated Pleural Effusions Other antibiotics ordered include azithromycin 500 mg IV Q24H (07/25-07/29), cefepime 2 mg IV Q12H (07/25-) and metronidazole 500 mg Q8H (07/30-) Historical vancomycin use: vancomycin 1000 mg x1 07/23/22 @2330 Allergies: Allergies Allergen Reactions ??? Motrin [Ibuprofen] Shortness of Breath ??? Nsaids Shortness of Breath and GI Upset ??? Prednisone Shortness of Breath Height: 5' 5 (1.651 m) Weight: 67.5 kg (148 lb 12.8 oz) Body mass index is 24.76 kg/m??. Temp (24 hr max): Temp Av.8 ??F (37.1 ??C) Min: 98.6 ??F (37 ??C) Max: 99.3 ??F (37.4 ??C) Today's labs and vitals: Lab Results Component Value Date/Time WBC 11.1 (H) 08/01/2022 02:42 AM WBC 16.2 (H) 07/31/2022 09:41 AM WBC 13.5 (H) 07/28/2022 07:03 AM WBC 21.3 (H) 07/27/2022 02:40 AM WBC 17.5 (H) 07/26/2022 02:38 AM Lab Results Component Value Date/Time CR 0.70 08/01/2022 11:31 AM CR 0.77 08/01/2022 02:42 AM CR 0.74 07/31/2022 11:13 AM CR 0.73 07/28/2022 07:03 AM CR 0.91 07/27/2022 02:40 AM CrCl = estimated creatinine clearance is 91.5 mL/min (based on SCr of 0.7 mg/dL). Intake/Output Summary (Last 24 hours) at 08/01/2022 1335 Last data filed at 08/01/2022 0505 Gross per 24 hour Intake -- Output 20 ml Net -20 ml Pertinent Cultures: Date Drawn Site Organism Pertinent Sensitivity 07/25 BCX 2/2 NGTD Strep PNU Urine Negative 07/28 Sputum GPC GNR Alpha Strep 07/29 Sputum Alpha Strep, moderate presuptive CA 07/30 Bronch wash Many neutrophils, culture pending 07/27 (last updated 07/31) Pleural fluid Staph epi Sensitive to clindamycin, erythromycin, gentamicin, oxacillin, rifampin, tetracycline, and vancomycin 07/27 (last updated 08/01) Pleural fluid Microaerophilic strep Sensitive to cefotaxime and Penicillin G No pertinent past Epic positive culture history Levels: Date Time Level AUC Dose Comments 07/28 0703 7 336 1.75 gm x1 1.25 gm x2 24h 3m 07/30 0617 24.4 464 1.75 gm x1 1.25 gm x2 1.00 gm x4 3h 55m 08/01 1131 18.7 535 1.75 gm x1 1.25 gm x2 1.00 gm x8 8 h 50 m Assessment: Ray Phillips is a 67-year-old male who is currently receiving vancomycin. AUC goal is 400 - 600 Current AUC level is Therapeutic Renal function is Fluctuating SCr 0.57-->0.91-->0.73 -->0.74-->0.77 (this am) WBC improving, 11.1 this am [facility] ID is consulted Plan: Antibiotic Plan: Resume scheduled dosing with 1000 mg q12h (est. AUC of 508) Next level due: 08/03 w/ AM labs Pharmacy will continue to follow cultures, clinical status, and appropriateness of therapy. Thank you for the consult. Pharmacy Consult per Dr. Srinath Tay Phone: [phone] 08/01/2022 1:35 PM Cosigned by Maria Antonia Quiñones PharmD at 08/01/2022 3:38 PM THERAPEUTIC SPECIALIST APEUTIC SPECIALIST APEUTIC SPECIALIST Associated attestation - Maria Antonia Quiñones PharmD - 08/01/2022 3:38 PM THERAPEUTIC SPECIALIST Next LVL will be Saturday 12 AM will walk administration times back to approach goal of 0900/2100 dosing times to consolidate MAR RN actions. * Angela Dawkins RN - 08/01/2022 9:00 AM CSTSummary: D/C plans IDBR done with Dr Maggy HARRIS MD to discuss POC/D/C plans. See notes below. 08/01/22 0900 Interdisciplinary Group Conference Team Members Present Physician;Case/Care management Barriers to Discharge Barriers Not Medically ready Not Medically ready follow up Pt to have VATS 08/02. Continue IMC status. CM following. APEUTIC SPECIALIST * Raquel Wetzel MD - 08/01/2022 6:56 AM CST Daily Progress Note Raquel Wetzel MD General Surgery Resident ID: Ray Phillips is a 67-year-old male : 1955 LOS: 7 ASSESSMENT/PLAN 67 year-old male with R parapneumonic effusion s/p R chest tube placement and TPA infusion by IR on07/27 - VSS, on 2L O2 - WBC improved today - CTA chest yesterday showed decreased right sided effusion but persistent loculations and incomplete expansion of right lung base. Plan for right VATS decortication on , 08/02. Discussed procedure and risks/benefits with patient and he understood and agreed to proceed - NPO at midnight for OR Attending: Dr. Blackburn SUBJECTIVE: Denies dyspnea or chest pain. Medications: Current Facility-Administered Medications: ??? acetaminophen (TYLENOL) tablet 650 mg, 650 mg, Oral, Q4H PRN, Tracy Yo MD ??? albuterol sulfate HFA 108 (90 Base) MCG/ACT inhaler 2 puff, 2 puff, Inhalation, Q4H PRN, Tracy Yo MD ??? alteplase (CATHFLO) injection, , , Code/Trauma/Sedation Med, Raul Osuna MD, 2 mg at 07/27/22 1034 ??? ceFEPIme (MAXIPIME) 2 g in sodium chloride (PF) 0.9 % 10 mL IV, 2 g, Intravenous, Q12H, Tracy Yo MD, 2 g at 08/01/22 0505 ??? cyclobenzaprine (FLEXERIL) tablet 10 mg, 10 mg, Oral, TID PRN, Tracy Yo MD, 10 mg at 07/26/22 0828 ??? fentaNYL (SUBLIMAZE) injection, , , Code/Trauma/Sedation Med, Raul Osuna MD, 50 mcg at 07/27/22 1014 ??? FLUoxetine (PROzac) capsule 20 mg, 20 mg, Oral, Daily, Tracy Yo MD, 20 mg at 07/31/22 0810 ??? gabapentin (NEURONTIN) capsule 300 mg, 300 mg, Oral, BID, Tracy Yo MD, 300 mg at 07/31/222008 ??? HYDROcodone-acetaminophen (NORCO) 10-325 MG tablet 1 tablet, 1 tablet, Oral, Q6H PRN, Tracy Yo MD, 1 tablet at 08/01/22 0505 ??? influenza virus vaccine (QUAD) injection 0.5 mL, 0.5 mL, Intramuscular, Once PRN, Florencio Amaya MD ??? ipratropium-albuterol (COMBIVENT RESPIMAT) 20-100 MCG/ACT inhaler 1 puff, 1 puff, Inhalation, Q4H, Lanre Winter MD, 1 puff at 08/01/22 0643 ??? lidocaine (XYLOCAINE) 1 % injection SOLN, , , Code/Trauma/Sedation Med, Raul Osuna MD, 8 mLat 07/27/22 1016 ??? lidocaine-EPINEPHrine 2 %-1:003745 injection 20 mL, 20 mL, Intradermal, Once, Nery Patrick MD ??? LORazepam (ATIVAN) tablet 1 mg, 1 mg, Oral, BID PRN, Tracy Yo MD, 1 mg at 07/31/22 1750 ??? metroNIDAZOLE (FLAGYL) tablet 500 mg, 500 mg, Oral, 3 times per day, Paulina Dale NP, 500 mg at 08/01/22 0505 ??? morphine (MSIR) tablet 30 mg, 30 mg, Oral, Q8H PRN, Tracy Yo MD, 30 mg at 08/01/22 0241 ??? morphine injection 1 mg, 1 mg, Intravenous, Q6H PRN, Florencio Amaya MD, 1 mg at 07/30/22 1753 ??? ondansetron (ZOFRAN) injection 4 mg, 4 mg, Intravenous, Q8H PRN, Tracy Yo MD ??? sodium chloride (OCEAN) 0.65 % nasal spray 1 spray, 1 spray, Each Nostril, PRN, Tracy Yo MD, 1 spray at 07/25/22 2305 ??? traZODone (DESYREL) tablet 100 mg, 100 mg, Oral, Nightly at bedtime, Tracy Yo MD, 100 mg at 07/31/222008 ??? vancomycin 1000 mg in NS 250 mL IVPB, 1,000 mg, Intravenous, Q12H, Florencio Amaya MD, Stopped at 08/01/22 0505 ??? Pharmacy to dose vancomycin, , , Once AND vancomycin pharmacy to dose placeholder, , Intravenous, See Admin Instructions, Tracy Yo MD Scheduled Meds: ??? cefepime 2 g Intravenous Q12H ??? FLUoxetine 20 mg Oral Daily ??? gabapentin 300 mg Oral BID ??? ipratropium-albuterol 1 puff Inhalation Q4H ??? lidocaine-EPINEPHrine 20 mL Intradermal Once ??? metroNIDAZOLE 500 mg Oral 3 times per day ??? traZODone 100 mg Oral Nightly at bedtime ??? vancomycin 1,000 mg Intravenous Q12H ??? vancomycin pharmacy to dose Intravenous See Admin Instructions Continuous Infusions: PRN Meds: acetaminophen, albuterol sulfate HFA, alteplase, cyclobenzaprine, fentaNYL, HYDROcodone-acetaminophen, influenza virus vaccine (QUAD), lidocaine, LORazepam, morphine, morphine, ondansetron,sodium chloride OBJECTIVE Vital signs in the last 24 hours: Vitals: 08/01/22 0450 BP: 133/73 Pulse: 63 Resp: 14 Temp: 98.6 ??F (37 ??C) SpO2: 94% Intake/Output last 3 shifts: I/O last 3 completed shifts: In: 360 [P.O.:360] Out: 600 [Urine:600] Intake/Output this shift: I/O this shift: In: - Out: 20 [Chest Tube:20] Today's Weight: Last Recorded Weight 11/04/17 1300 Weight: 2344 g (5 lb 2.7 oz) Yesterday's Weight: Wt Readings from Last 1 Encounters: 11/04/17 2344 g (5 lb 2.7 oz) Weight change in the last 24 hours: an appropriate measurement is not found Examination: General: NAD Lungs: easy respirations, symmetric chest rise. On 2L NC. Right sided pigtail chest tube in place Heart: regular rate and rhythm Neuro: AAOx3, no focal deficits Psych: appropriate mood and affect Labs and Cultures: CBC Lab Results Component Value Date/Time WBC 11.1 (H) 08/01/2022 02:42 AM Lab Results Component Value Date/Time RBC 2.58 (L) 08/01/2022 02:42 AM Lab Results Component Value Date/Time HGB 8.6 (L) 08/01/2022 02:42 AM Lab Results Component Value Date/Time HCT 26.4 (L) 08/01/2022 02:42 AM Cosigned by Ross Blackburn MD at 08/02/2022 6:58 AM THERAPEUTIC SPECIALIST APEUTIC SPECIALIST APEUTIC SPECIALIST * Jena Hayes, SMITH - 07/31/2022 4:01 PM CST OT Treatment Discharge Recommendation: home with assistance Activity Recommendation for configuration management specialist: Up with gait belt x1 assist using 2 w/w to restroom. Up in chair for every meal. 07/31/22 1419 Therapy Visit OT Received On 07/31/22 Reason for admission Pt is a 67 yo male who presents with SOB, PNA, hydropneumothorax, and loculated effusions. Pt may requires chest tube placement.....PMH:chronic back pain due to back trauma 20 years ago, anxiety/depression, tobacco abuse....Eval and tx, activity as tolerated Ordering Provider Tracy Yo MD Verified Two Patient Identifiers Yes Patient consents to therapy Yes Acute Inpatient OT Time Calculation OT Start Time 1409 OT Stop Time 1508 OT Time Calculation (min) 59 min Precautions General Precautions Bed Alarm;Chair Alarm;Multiple lines;Fall Risk Instructed on Precautions Yes;Verbalizes understanding;Needs reinforcement and education Other tele, chest tube to wall suction, 2L O2 Home Living Home Living Comments Per eval, pt lives with in a 1 SH with no PRANAY. Pt has a walk in shower with shower chair, and gbs. Pt has a tall toilet with sink closeby. Pt has a 2ww, and cane but was notusing at home. 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 Pt reports he was noton home O2, and no falls. Subjective Subjective RN ok'd therapy session. Pt sitting up in chair upon arrival and agreeable to OT session, requesting to have shower. Spoke with RN and advised pt he can only sponge bathe at this time withlimitations of chest tube. Pt verbalized understanding and agreeable to sponge bath. Pt seen in room 742 using gait belt for transfers and mobility. Activity Tolerance Endurance Quality Fair Limiting Factors to Endurance Fatigue;Weakness Activity Tolerance Comments improving, required cues and training for energy conservation techniques t/o session. Cognition Overall Cognitive Status WFL Arousal/Alertness Appropriate responses to stimuli Attention Span Appears intact Memory Appears intact Orientation Level Oriented X4 Following Commands Follows all commands and directions without difficulty Safety Judgment Decreased awareness of need for safety Awareness of Errors Good awareness of errors made Deficits Fully aware of deficits Problem Solving Able to problem solve independently Comments Pt alert and oriented x4, presents with decreased safety awareness with decreased insight to deficits. Motor Planning Appears intact Perseveration Not present Initiation Appears intact ADL Bathing Assistance Stand by;CGA;Standing at sink;Alternating sit/stand Bathing Deficit Setup;Steadying;Increased time to complete;Chest;Right arm;Left arm;Abdomen;Perineal area;Buttocks;Right upper leg;Left upper leg;Right lower leg including foot;Left lower leg including foot Bathing Comment Pt seated sink side alternating stand/sit to complete sponge bath. Pt required additional time with SBA/CGA for safety presenting good thoroughness with min cues for safety. Pt slightly impulsive t/o session and SOB during ADL tasks and transfers. Required cues and training for energy conservation. UE Dressing Assistance Independent UE Dressing Deficit Setup;Thread RUE;Thread LUE;book coverer head;Pull around back;Pull down in back UE Dressing Comment assist for line management only LE Dressing Assistance Stand by;Sitting in chair;Alternating sit/stand LE Dressing Deficit Setup;Increased time to complete;Don/doff R sock;Don/doff L sock;Thread RLE into pants;Thread LLE into pants;Thread RLE into underwear;Thread LLE into underwear;Pull up over hips LE Dressing Comment Pt performed don/doff of pants, boxers, socks, and slippers with SBA and min cues for safety demonstrating figure 4 technique. Bed Mobility Other (Comment) Pt sitting up in chair upon arrival. Functional Transfers Sit to Stand Independent Bed to Chair Modified independence Functional Mobility Pt required CGA for safety of functional mobility <> restroom to completesponge bath. Pt required cues for safety using 2 w/w at this time d/t increased fatigue. Pt required assist and cues for line management of chest tube and O2 cord. Other (Comment) Pt performed sit <> stand transfers with min cues for hand placement and safety. Balance Sitting - Static Independent Sitting - Dynamic Independent Standing - Static Modified independence Standing - Dynamic Modified independence Other (Comment) Pt generally unsteady as he fatigues with ADL tasks; however no overt LOB using 2 w/w. OT Assessment OT Assessment Pt progressing towards OT goals, fatigues quickly with ADL tasks and transfers with SOB requiring cues and training for energy conservation techniques. Pt continues to be limited by acute deconditioning, weakness, fatigue, and SOB. Pt will benefit from continued skilled OT in acute setting in order to increase safety and maxmize independence with functional transfers and ADL tasks prior to returning home with assistance. Recommendation OT Recommendation Home with assistance Barriers to Community Discharge Safety Plan OT Treatment/Intervention Self-care training;Functional activity Progress Progressing toward goals OT Frequency 5 times/week OT - Next Appointment 07/31/22 If this is the last treatment note, it will serve as the discharge summary Yes End of Session End of Session Safety Call light within reach;Family/friend present with patient;Nursing aware of session;Transfer status education End of Session Comment Pt assisted back to chair with B LE elevated, call light in reach, and chairalarm activated. Education: Primary Learners Name: Ray Phillips Primary Language of learner: Angolan Patient was educated on exercises transfers ADLs balance bed mobility therapy plan safety energy conservation. Education was completed one to one verbal this date. Preference of learning new concepts one to one verbal Barriers to education this date were fatigue. Response to education this date verbalized understanding verbalized recall asks questions demos with verbal cues demos adequately needs follow up needs assistance. APEUTIC SPECIALIST * Dayami Robbins MD - 07/31/2022 1:55 PM CSTSummary: [facility] PROGRESS NOTE [facility] PROGRESS NOTE Attending Provider:Dr. Robbins PCP: JOE TAM DO Reason for Consultation: Loculated pleural effusions, Pneumonia ASSESSMENT AND PLAN Ray Phillips is a 67-year-old male with medical history of chronic tobacco use who was transferred from [facility] near [place] for treatment resistant pneumonia and loculated pleural effusions. Currently on Vancomycin, Cefepime, and metronidazole. Continue vancomycin for pleural fluid growing staph epi, cefepime for GNR in BAL, and flagyl for concerns of abscess on initial imaging. Patient is s/p chesttube placement on 07/27, and bronchoscopy on 07/30. [facility] has been consulted for antibiotic management of necrotizing pneumonia and loculated effusions. Diagnoses: Acute Hypoxic Respiratory Failure 2/2 Pneumonia vs. Loculated Effusions Community Acquire Pneumonia, bacterial vs. Fungal Loculated Pleural Effusions Air-Fluid level on imaging concerning for hydropneumothorax, empyema, or fistula Possible COPD Anemia History of Asbestos exposure [facility] Infectious Disease Team Recommendations -Continue Vancomycin (per pharmacy dosing) for pleural fluid growing Staphylococcus Epidermidis -Continue Cefepime for BAL growing GNR pending speciation. -Continue Metronidazole PO 500 mg q 8h for concern for empyema/abscess on previous CT imaging. -Appreciate Pulmonology assistance. -Plan as above discussed with patient, all voiced questions/concerns addressed, voices agreement and understanding with plan. Thank you for consulting [facility] Infectious Disease, we will continue to follow. Paulina Dale APRN [facility] Infectious Disease 07/31/2022 Teaching physician note: Infectious Diseases Attending Physician: Patient personally interviewed and examined. Labs and vitals reviewed. [facility] Infectious Disease mid-level provider's note reviewed and findings verified. Case discussed with the Infectious Disease team SUBJECTIVE Patient seen and examined this morning resting in bed. No acute events overnight. Patient afebrile.Patient endorses mild SOB but states it has improved. He denies abdominal pain, chest pain, N/V/D, rash. Review of Systems 10 point ROS negative except as stated in subjective OBJECTIVE Infectious Evaluation Summary Labs SCr 0.73 WBC 13.5 Images 07/31 CT chest: 1. Focal loculated hydropneumothorax, right posterior inferior pleura, unchanged in size; with significantly decreased fluid component and increased air component. Right pleural catheter in place. Probable pneumothorax ex vacuo. Unlikely bronchopleural fistula. 2. Possible interstitial pulmonary edema. Small left pleural effusion. 3. Possible superimposed atypical viral infectious interstitial pneumonia, improved. 4. Emphysema. 07/31 CXR: 1. Right-sided chest remains in place. Persistent pleural-based opacity in the lateral right lower chest likely representing some residual loculated effusion. 2. Increased left basilar opacity likely due to increased atelectasis with possible small effusion.In addition there is some increased groundglass opacity overlying the left midlung. 07/30 CXR: 1) Interval decrease in small left pleural effusion and left basilar consolidation. No other significant change. 07/29 US ABD: 1. 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 The smallest of the 3 cyst demonstrates thin internal septation but appears benign. No follow-up imaging is recommended. 2. Splenomegaly. 07/27 TTE: The left ventricular size is normal. The calculated ejection fraction is 61%. Wall motion appears normal in all segments. The right ventricle is normal in size and function. No evidence of pericardial effusion. Aortic root is mildly dilated. Ascending aorta is mildly dilated. Inferior vena cava shows >50% collapse with respiration consistent with normal right atrial pressure. No significant valvular heart disease. Micro 07/25 Blood Culture x2 : NTD 07/25 Strep Pneumo: negative 07/25 Legionella: negative 07/26 Mycoplasma: Pending 07/26 HIV Ab: Negative 07/26 Histoplasma: Pending 07/26 Blastomyces: Pending 07/27 right pleural fluid anaerobic: Microaerophilic streptococcus 07/27 Right pleural fluid: Staphylococcus epidermidis 07/27 Right Pleural fluid cell count: Protein: 3.5 WBC 144,450 RBC: 90,000 Segs: 97% Lymphs: 3% LDH: >4,000 07/28 Sputum: Alpha Streptococcus, Tete Albicans 07/30 BAL: GNR 07/30 Bronch Wash: NG Antimicrobial Regimen Unknown Abx regiment at [facility] Vancomycin IV 1.25g every 24h(07/25 - present) Cefepime IV 2g every 12h(07/25 - present) Metronidazole 500mg q8h (07/30-present) Azithromycin IV 500mg every 24 hours (07/25 -07/29) Drug Monitoring Filed Vitals: 07/31/22 0451 07/31/22 0811 07/31/22 0919 07/31/22 0927 BP: 107/56 112/63 97/68 Pulse: 63 69 72 Resp: 13 21 13 Temp: 97.8 ??F (36.6 ??C) 98.2 ??F (36.8 ??C) TempSrc: Oral SpO2: 94% (Abnormal) 87% 93% Weight: Height: Physical Exam HENT: Head: Normocephalic. Eyes: General: No scleral icterus. Conjunctiva/sclera: Conjunctivae normal. Pupils: Pupils are equal, round, and reactive to light. Neck: Vascular: No JVD. Cardiovascular: Rate and Rhythm: Normal rate and regular rhythm. Pulses: Normal pulses. Heart sounds: No murmur heard. Pulmonary: Effort: Pulmonary effort is normal. No accessory muscle usage or respiratory distress. Breath sounds: Normal breath sounds. No wheezing. Abdominal: General: Bowel sounds are normal. There is no distension. Palpations: Abdomen is soft. There is no mass. Tenderness: There is no abdominal tenderness. There is no guarding or rebound. Musculoskeletal: General: Normal range of motion. Cervical back: Normal range of motion and neck supple. Skin: Findings: No erythema or rash. Neurological: Mental Status: He is alert and oriented to person, place, and time. Cranial Nerves: No cranial nerve deficit. Coordination: Coordination normal. Psychiatric: Mood and Affect: Mood and affect normal. Current Facility-Administered Medications: acetaminophen (TYLENOL) tablet 650 mg, 650 mg, Oral, Q4H PRN, Tracy Yo MD albuterol sulfate HFA 108 (90 Base) MCG/ACT inhaler 2 puff, 2 puff, Inhalation, Q4H PRN, Tracy Yo MD alteplase (CATHFLO) injection, , , Code/Trauma/Sedation Med, Raul Osuna MD, 2 mg at 07/27/22 1034 ceFEPIme (MAXIPIME) 2 g in sodium chloride (PF) 0.9 % 10 mL IV, 2 g, Intravenous, Q12H, Tracy Yo MD, 2 g at 07/31/22 0649 cyclobenzaprine (FLEXERIL) tablet 10 mg, 10 mg, Oral, TID PRN, Tracy Yo MD, 10 mg at 07/26/22 0828 fentaNYL (SUBLIMAZE) injection, , , Code/Trauma/Sedation Med, Raul Osuna MD, 50 mcg at 014 FLUoxetine (PROzac) capsule 20 mg, 20 mg, Oral, Daily, Tracy Yo MD, 20 mg at 07/31/22 0810 gabapentin (NEURONTIN) capsule 300 mg, 300 mg, Oral, BID, Tracy Yo MD, 300 mg at 07/31/22 0810 HYDROcodone-acetaminophen (NORCO) 10-325 MG tablet 1 tablet, 1 tablet, Oral, Q6H PRN, Tracy Yo MD, 1 tablet at 07/30/22 1224 influenza virus vaccine (QUAD) injection 0.5 mL, 0.5 mL, Intramuscular, Once PRN, Florencio Amaya MD ipratropium-albuterol (DUONEB) 0.5-2.5 (3) MG/3ML nebulizer solution 3 mL, 3 mL, Nebulization, Q4H,Tracy Yo MD, 3 mL at 07/31/22 1148 lidocaine (XYLOCAINE) 1 % injection SOLN, , , Code/Trauma/Sedation Med, Raul Osuna MD, 8 mL at 07/27/22 1016 lidocaine-EPINEPHrine 2 %-1:[id number] injection 20 mL, 20 mL, Intradermal, Once, Nery Patrick MD LORazepam (ATIVAN) tablet 1 mg, 1 mg, Oral, BID PRN, Tracy Yo MD, 1 mg at 07/31/22 1003 metroNIDAZOLE (FLAGYL) tablet 500 mg, 500 mg, Oral, 3 times per day, Paulina Dale, JONELLE, 500 mg at 07/31/22 0649 morphine (MSIR) tablet 30 mg, 30 mg, Oral, Q8H PRN, Tracy Yo MD, 30 mg at 07/31/22 0706 morphine injection 1 mg, 1 mg, Intravenous, Q6H PRN, Florencio Amaya MD, 1 mg at 07/30/22 1753 ondansetron (ZOFRAN) injection 4 mg, 4 mg, Intravenous, Q8H PRN, Tracy Yo MD sodium chloride (OCEAN) 0.65 % nasal spray 1 spray, 1 spray, Each Nostril, PRN, Tracy Yo MD, 1 spray at 07/25/22 2305 traZODone (DESYREL) tablet 100 mg, 100 mg, Oral, Nightly at bedtime, Tracy Yo MD, 100 mg at 07/30/222028 vancomycin 1000 mg in NS 250 mL IVPB, 1,000 mg, Intravenous, Q12H, Florencio Amaya MD, Stopped at 07/31/22 0330 Pharmacy to dose vancomycin, , , Once AND vancomycin pharmacy to dose placeholder, , Intravenous, See Admin Instructions, Tracy Yo MD APEUTIC SPECIALIST APEUTIC SPECIALIST APEUTIC SPECIALIST * Karla Berrios, PLANNING ADVISOR - 07/31/2022 1:40 PM CST PT Treatment Discharge Recommendation: home with assistance Activity Recommendation for configuration management specialist: up with 1, 2ww, gait belt 07/31/22 1222 Therapy Visit Ordering Provider Tracy Yo MD Subjective Upon entering room 742, patient was in supine and agreeable to therapy. Reason for admission Pt is a 67 yo male who presents with SOB, PNA, hydropneumothorax, and loculated effusions. Pt may requires chest tube placement.....PMH:chronic back pain due to back trauma 20 years ago, anxiety/depression, tobacco abuse....Eval and tx, activity as tolerated Verified Two Patient Identifiers Yes Patient consents to therapy Yes Acute Inpatient PT Time Calculation PT Start Time 1222 PT Stop Time 1245 PT Time Calculation (min) 23 min Precautions General Precautions Bed Alarm;Chair Alarm;Multiple lines;Fall Risk Instructed on Precautions Yes;Verbalizes understanding Other tele, chest tube to wall suction, 2L O2 Home Living Home Living Comments Per eval, pt lives with in a 1 SH with no PRANAY. Pt has a walk in shower with shower chair, and gbs. Pt has a tall toilet with sink closeby. Pt has a 2ww, and cane but was notusing at home. 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 Pt reports he was noton home O2, and no falls. Activity Tolerance Activity Tolerance Comments improving Cognition Overall Cognitive Status WFL Arousal/Alertness Appropriate responses to stimuli Attention Span Appears intact Memory Appears intact Orientation Level Oriented X4 Following Commands Follows all commands and directions without difficulty Safety Judgment Decreased awareness of need for safety Awareness of Errors Good awareness of errors made Deficits Fully aware of deficits Problem Solving Able to problem solve independently Bed Mobility Supine to Sit Independent TRANSFERS Sit to Stand Independent Bed to Chair Modified independence Gait Gait Assistance Modified independence Assistive Device 2 Wheeled walker Distance Ambulated (ft) 400 ft Other (Comment) Patient demonstrates good pace, step through gait, very forward flexed posture (chronic), and no LOB. Patient would like to trial SPC as this is what he would like to get back to using at home Balance Sitting - Static Independent Sitting - Dynamic Independent Standing - Static Modified independence Standing - Dynamic Modified independence Other (Comment) no LOB with 2ww PT Assessment PT Assessment Patient tolerated treatment session well this date with improving gait distance, balance, and overall functional mobility. Patient would benefit from 1 more PT session for gait trainingwith SPC. Patient can return home with assistance as needed. Recommendation PT Recommendation Home with assistance Plan PT Treatments/Interventions Gait Training;Therapeutic Exercises;Therapeutic Activities;Neuromuscular re-education Progress Progressing toward goals PT Frequency 5 times/week PT plan for next session gait training with SPC PT - Next Appointment 07/31/22 If this is the last treatment note,it will serve as the discharge summary Yes Education: Primary Learners Name: Ray Phillips Primary Language of learner: Angolan Patient was educated on precautions transfers balance bed mobility therapy plan gait safety. Education was completed one to one verbal hands-on demonstration this date. Preference of learning new concepts one to one verbal hands-on demonstration Barriers to education this date were none. Response to education this date verbalized understanding. APEUTIC SPECIALIST * Patel Kelsey MD - 07/31/2022 12:43 PM CST [facility]??PROGRESS??NOTE ?? Attending Provider:??Florencio Amaya MD PCP:??GRACIELA LEIGH MD? Reason for Admission:?Respiratory failure (CMS/HCC) ?? Reason for Consult:??Respiratory failure, necrotizing pneumonia,??possible loculated??effusion??- empyema or abscess vs bronchopleural fistula ? ASSESSMENT/PLAN Ray Phillips??is a 67-year-old??male, with history of??chronic back pain,??50-pk year history smoking??who presented??with worsening shortness of breath over??2- 3 week period. Presented with CT imaging concerning for loculated fluid collection in right posterior pleural cavity - pneumonia vs empyema or abscess vs bronchopleural fistula. Concern for malignancy as well given history of asbestos exposure, smoking history, and family history of lung cancer. ??requiring 8-10L nasal cannula. [facility] ID and CT surgery as consulting services as well.??Oxygenation has improved post chest tube placement.? [facility] Pulmonology consulted for??above. ?? Problem List:?? Acute hypoxic respiratory failure Probable COPD? Necrotizing pneumonia of right lower lobe Loculated right pleural effusion Possible??Pulmonary edema Small pericardial effusion Splenomegaly Acute blood loss anemia? Hypokalemia requiring monitoring and treatment Chronic back pain Anxiety/depression History of tobacco abuse Chronic compression fracture of L3 Lumbar spondylosis History of back trauma Pericardial effusion ?? Active workup:?? CT imaging reviewed. 07/26 - Labs reviewed, Hgb 7.6, WBC 17.5 Procalcitonin 1.83?? Sputum cultures with GNR ?? [facility] Pulmonology Plan/ Recommendations: -??s/p Chest tube placement 07/27/22 - will follow cultures, labs??- TPA/dornase per IR for loculations. - Repeat CT appears to still have loculated collection, hydropneumothorax. Could possibly get second chest tube for fluid collection, which based on appearance of fluid and labs, appears to be empyema. Could also consider CTS evaluation for VATS decortication. Discussed with hospitalist who will contact IR and [place] team regarding options. - Bronchoscopy completed on 07/30 - will follow labs. - Antibiotics per ID - currently on vanc, cefepime, flagyl - Will monitor remainder of cultures from chest tube/sputum - GNRs in sputum currently and staph epidermidis from chest tube. - Rest of care per primary team ?? Thank you for the consult. We will continue to follow.? Patel Kelsey MD 07/31/2022 SUBJECTIVE Doing well. No fever or chills. No shortness of breath. Chest tube drainage is less today. He has minimal cough. Minimal sputum production. Review of Systems All other systems reviewed and are negative. OBJECTIVE Vitals: Filed Vitals: 07/31/22 0451 07/31/22 0811 07/31/22 0919 07/31/22 0927 BP: 107/56 112/63 97/68 Pulse: 63 69 72 Resp: 13 Temp: 97.8 ??F (36.6 ??C) 98.2 ??F (36.8 ??C) TempSrc: Oral SpO2: 94% (!) 87% 93% Weight: Height: Physical Exam Constitutional: General: He is not in acute distress. Appearance: Normal appearance. He is normal weight. HENT: Head: Normocephalic and atraumatic. Mouth/Throat: Mouth: Mucous membranes are moist. Eyes: General: No scleral icterus. Extraocular Movements: Extraocular movements intact. Conjunctiva/sclera: Conjunctivae normal. Pupils: Pupils are equal, round, and reactive to light. Cardiovascular: Rate and Rhythm: Normal rate and regular rhythm. Pulses: Normal pulses. Heart sounds: Normal heart sounds. No murmur heard. Pulmonary: Effort: Pulmonary effort is normal. No respiratory distress. Breath sounds: No wheezing. Comments: Chest tube in place right sided. Crackles RLL. Abdominal: General: Bowel sounds are normal. There is no distension. Palpations: Abdomen is soft. Tenderness: There is no abdominal tenderness. There is no guarding. Musculoskeletal: General: No tenderness. Skin: General: Skin is warm and dry. Coloration: Skin is not jaundiced. Neurological: General: No focal deficit present. Mental Status: He is alert and oriented to person, place, and time. Cranial Nerves: No cranial nerve deficit. Psychiatric: Mood and Affect: Mood normal. Behavior: Behavior normal. Medications: ??? cefepime 2 g Intravenous Q12H ??? FLUoxetine 20 mg Oral Daily ??? gabapentin 300 mg Oral BID ??? ipratropium-albuterol 3 mL Nebulization Q4H ??? lidocaine-EPINEPHrine 20 mL Intradermal Once ??? metroNIDAZOLE 500 mg Oral 3 times per day ??? traZODone 100 mg Oral Nightly at bedtime ??? vancomycin 1,000 mg Intravenous Q12H ??? vancomycin pharmacy to dose Intravenous See Admin Instructions PRN: acetaminophen, albuterol sulfate HFA, alteplase, cyclobenzaprine, fentaNYL, HYDROcodone-acetaminophen, influenza virus vaccine (QUAD), lidocaine, LORazepam, morphine, morphine, ondansetron, sodium chloride Allergies Allergen Reactions ??? Motrin [Ibuprofen] Shortness of Breath ??? Nsaids Shortness of Breath and GI Upset ??? Prednisone Shortness of Breath Intake/Output Summary (Last 24 hours) at 07/31/2022 1243 Last data filed at 07/31/2022 0800 Gross per 24 hour Intake 500 ml Output 1150 ml Net -650 ml Labs: Recent Labs Lab 07/25/22 1416 07/25/22 1723 07/25/22 2056 07/26/22 0238 07/26/22 1255 07/27/22 0240 07/28/22 0703 07/31/22 0941 WBC 17.6* -- -- 17.5* -- 21.3* 13.5* 16.2* RBC 2.07* -- -- 2.26* -- 1.98* 2.51* 3.07* HGB 7.0* 8.1* 7.5* 7.6* 7.1* 6.5* 8.3* 10.1* HCT 21.0* 24.4* 23.2* 22.9* 21.5* 20.2* 25.1* 31.0* MCV 101.4* -- -- 101.3* -- 102.0* 100.0 101.0* MCH 33.8* -- -- 33.6* -- 32.8* 33.1* 32.9* MCHC 33.3 -- -- 33.2 -- 32.2* 33.1 32.6* PLT 260 -- -- 283 -- 347 303 277 RDW 13.6 -- -- 13.8 -- 14.2 14.7* 15.3* NEUC 14.78* -- -- 16.80* -- 20.24* 11.61* 14.00* LYMC 2.29 -- -- 0.53* -- 0.85 1.08 1.26 MONOC 0.53 -- -- 0.18 -- 0.21 0.81 0.59 EOSC 0.00 -- -- 0.00 -- 0.00 0.00 0.01 BASOC 0.00 -- -- 0.00 -- 0.00 0.00 0.02 Recent Labs Lab 07/25/22 1416 07/26/22 0238 07/27/22 0240 07/28/22 0703 07/31/22 1113 NA 137 135* 138 137 137 K 3.4* 4.5 3.7 4.0 3.6 CL 106 105 106 105 104 CO2 24.7 26.8 26.0 28.7 27.8 BUN 17 15 22* 19* 20* CR 0.57* 0.66* 0.91 0.73 0.74 GLU 85 137* -- 98 106 CA 7.8* 8.1* 8.2* 7.9* 8.1* TP 5.3* 5.3* -- -- 5.6* ALB 1.5* 1.5* -- -- 1.9* TBIL 0.3 0.2 -- -- 0.3 ALKP 61 60 -- -- 54 AST 23 19 -- -- 8* ALT 23 20 -- -- 15* Recent Imaging: Radiology Results (Last 48 hours) 07/31/22 0600 XR CHEST PORTABLE Final result Impression: IMPRESSION: 1. Right-sided chest remains in place. Persistent pleural-based opacity in the lateral right lower chest likely representing some residual loculated effusion. 2. Increased left basilar opacity likely due to increased atelectasis with possible small effusion. In addition there is some increased groundglass opacity overlying the left midlung. Ordered By: RODNEY NOLASCO Interpreted By: Jin Saravia MD, 07/31/2022 9:13 AM 07/30/22 0527 XR CHEST PORTABLE Final result Impression: IMPRESSION: 1) Interval decrease in small left pleural effusion and left basilar consolidation. No other significant change. Ordered By: RODNEY NOLASCO Interpreted By: Nigel Peña MD, 07/30/2022 8:33 AM Cosigned by Katie Paula MD at 07/31/2022 4:44 PM THERAPEUTIC SPECIALIST APEUTIC SPECIALIST APEUTIC SPECIALIST Associated attestation - Katie Paula MD - 07/31/2022 4:44 PM THERAPEUTIC SPECIALIST [facility] Attending Note: I reviewed with the resident the medical history and the resident???s findings on physical examination. I reviewed the patient's labs and imaging studies. I discussed with the resident the patient???s diagnosis and concur with the treatment plan as documented in the resident note. Independently reviewed multiple chest images (last CT on 07/31). Discussed with IR, Dr. Saravia. Recommend CTS for VATS and decortication. Empyema, continue broad anbx per ID. Follow up final cultures. Thank you for the consult * Lanre Winter MD - 07/31/2022 11:32 AM CST Progress note CC:- f/u of loculated effusions, copd, pneumonia SUBJECTIVE Patient seen and examined. On RA denies chest pain sob Has right chest tube tolerating antibiotics OBJECTIVE Wt Readings from Last 3 Encounters: 07/28/22 67.5 kg (148 lb 12.8 oz) Temp: 98.2 ??F (36.8 ??C) BP Readings from Last 3 Encounters: 07/31/22 97/68 Pulse Readings from Last 3 Encounters: 07/31/22 72 Review of Systems Constitutional: Negative for chills, fever and weight loss. HENT: Negative for congestion and ear pain. Eyes: Negative for blurred vision and double vision. Respiratory: Negative for cough, hemoptysis, sputum production, shortness of breath and wheezing. Cardiovascular: Negative for chest pain, palpitations, orthopnea, leg swelling and PND. Gastrointestinal: Negative for abdominal pain, blood in stool, nausea and vomiting. Genitourinary: Negative for dysuria, flank pain and hematuria. Musculoskeletal: Negative for back pain, joint pain and neck pain. Skin: Negative for rash. Neurological: Negative for speech change, focal weakness and loss of consciousness. Endo/Heme/Allergies: Negative for polydipsia. Psychiatric/Behavioral: Negative for depression and suicidal ideas. The patient is not nervous/anxious. All other systems reviewed and are negative. PHYSICAL EXAMINATION: Physical Exam Vitals and nursing note reviewed. HENT: Head: Normocephalic. Eyes: General: No scleral icterus. Conjunctiva/sclera: Conjunctivae normal. Pupils: Pupils are equal, round, and reactive to light. Neck: Vascular: No JVD. Cardiovascular: Rate and Rhythm: Normal rate and regular rhythm. Pulses: Normal pulses. Heart sounds: No murmur heard. Pulmonary: Effort: Pulmonary effort is normal. No accessory muscle usage or respiratory distress. Breath sounds: Normal breath sounds. No wheezing. Abdominal: General: Bowel sounds are normal. There is no distension. Palpations: Abdomen is soft. There is no mass. Tenderness: There is no abdominal tenderness. There is no guarding or rebound. Musculoskeletal: General: Normal range of motion. Cervical back: Normal range of motion and neck supple. Skin: Findings: No erythema or rash. Neurological: Mental Status: He is alert and oriented to person, place, and time. Cranial Nerves: No cranial nerve deficit. Coordination: Coordination normal. Psychiatric: Mood and Affect: Mood and affect normal. LABS: Recent Labs 07/31/22 0941 WBC 16.2* HGB 10.1* HCT 31.0* MCV 101.0* PLT 277 RBC 3.07* No results for input(s): ALT, AST, CO2, CL, GLU, K, NA, BUN in the last 72 hours. Invalid input(s): ALBUMIN, ALKPHOS, BILITOT, CALCIUM, CREATININE, PROT Intake/Output Summary (Last 24 hours) at 07/31/2022 1132 Last data filed at 07/31/2022 0800 Gross per 24 hour Intake 500 ml Output 1150 ml Net -650 ml Microbiology Results (last 14 days) Procedure Component Value Units Date/Time CULTURE, FUNGUS [[id number]] Order Status: No result Lab Status: No result Specimen: BRONCHOALVEO LAV, RT LWR CULTURE TB/AFB OTHER (TYPE IN COMMENTS) [[id number]] Order Status: No result Lab Status: No result Specimen: BRONCHOALVEO LAV, RT LWR SMEAR,FLUOR STAIN,ACID FAST [[id number]] Order Status: No result Lab Status: No result Specimen: BRONCHOALVEO LAV, RT LWR CULTURE VIRAL RESPIRATORY RAPID [[id number]] Order Status: No result Lab Status: No result Specimen: BRONCHOALVEO LAV, RT LWR CULTURE RESPIRATORY W/ GRAM STAIN [[id number]] Order Status: No result Lab Status: No result Specimen: BRONCHIAL WASHING CULTURE, FUNGUS [[id number]] Order Status: No result Lab Status: No result Specimen: BRONCHIAL WASHING CULTURE TB/AFB OTHER (TYPE IN COMMENTS) [[id number]] Order Status: No result Lab Status: No result Specimen: BRONCHIAL WASHING SMEAR,FLUOR STAIN,ACID FAST [[id number]] Order Status: No result Lab Status: No result Specimen: BRONCHIAL WASHING CULTURE VIRAL RESPIRATORY RAPID [[id number]] Order Status: No result Lab Status: No result Specimen: BRONCHIAL WASHING CULTURE, QUANTITATIVE W/ GRAM STAIN [[id number]] Order Status: No result Lab Status: No result Specimen: BRONCHOALVEO LAV, RT LWR CULTURE, FUNGUS [[id number]] Collected: 07/30/22 153 Order Status: No result Lab Status: In process Updated: 07/30/22 170 CULTURE RESPIRATORY W/ GRAM STAIN [[id number]] Collected: 07/30/22 153 Order Status: Completed Lab Status: Preliminary result Updated: 07/30/22 2017 Specimen: SITE Spec. Description SITE: BRONCH WASH Special Requests: NO SPECIAL REQUEST Gram Stain Result -- MANY NEUTROPHILS SEEN Gram Stain Result NO ORGANISMS SEEN Culture Result: PENDING SMEAR,FLUOR STAIN,ACID FAST [[id number]] Collected: 07/30/22 1530 Order Status: No result Lab Status: In process Updated: 07/30/22 1703 CULTURE TB/AFB OTHER [[id number]] Collected: 07/30/22 153 Order Status: No result Lab Status: In process Updated: 07/30/22 1704 CULTURE, QUANTITATIVE W/ GRAM STAIN [[id number]] Collected: 07/30/22 153 Order Status: Completed Lab Status: Preliminary result Updated: 07/31/22 044 Specimen: SITE Spec. Description SITE: BAL RLL Special Requests: NO SPECIAL REQUEST Gram Stain Result <10 NEUTROPHILS PER LPF Gram Stain Result <10 EPITHELIAL CELLS PER LPF Gram Stain Result -- RARE GRAM NEGATIVE RODS Culture Result: PENDING CULTURE, FUNGUS [[id number]] Collected: 07/30/221529 Order Status: Canceled Lab Status: No result SMEAR,FLUOR STAIN,ACID FAST [[id number]] Collected: 07/30/221529 Order Status: Canceled Lab Status: No result CULTURE TB/AFB OTHER [[id number]] Collected: 07/30/221529 Order Status: Canceled Lab Status: No result CULTURE RESPIRATORY W/ GRAM STAIN [[id number]] Collected: 07/28/221424 Order Status: Completed Lab Status: Final result Updated: 07/31/22 0847 Specimen: SPUTUM, EXPECTORATED Spec. Description SPUTUM, EXPECTORATED Special Requests: NO SPECIAL REQUEST Gram Stain Result >25 NEUTROPHILS PER LPF Gram Stain Result <10 EPITHELIAL CELLS PER LPF Gram Stain Result -- RARE BUDDING YEAST CELLS Gram Stain Result -- RARE GRAM POSITIVE COCCI IN PAIRS Gram Stain Result -- RARE GRAM NEGATIVE RODS Culture Result: -- FEW ALPHA STREPTOCOCCUS Culture Result: -- MODERATE PRESUMPTIVE TETE ALBICANS CULTURE, FUNGUS [[id number]] Collected: 07/28/221424 Order Status: Sent Lab Status: No result Specimen: SPUTUM, EXPECTORATED CULTURE TB/AFB OTHER (TYPE IN COMMENTS) [[id number]] Collected: 07/28/221424 Order Status: Sent Lab Status: No result Specimen: SPUTUM, EXPECTORATED SMEAR,FLUOR STAIN,ACID FAST [[id number]] Collected: 07/28/221424 Order Status: No result Lab Status: In process Updated: 07/28/22 1612 HISTOPLASMA ANTIGEN [[id number]] Collected: 07/28/221423 Order Status: Sent Lab Status: No result Specimen: BLOOD HISTOPLASMA ANTIGEN [[id number]] Collected: 07/28/221423 Order Status: Canceled Lab Status: No result Specimen: BLOOD GLUCOSE, BODY FLUID [[id number]] Order Status: Sent Lab Status: No result Specimen: PLEURAL FLUID PH BODY FLUID [[id number]] Order Status: Sent Lab Status: No result Specimen: PLEURAL FLUID CULTURE, BODY FLUID W/ GRAM STAIN [[id number]] Order Status: Canceled Lab Status: No result Specimen: PLEURAL FLUID CULTURE, ANAEROBIC [[id number]] Order Status: Canceled Lab Status: No result Specimen: PLEURAL FLUID CULTURE, FUNGUS [[id number]] Order Status: Canceled Lab Status: No result Specimen: PLEURAL FLUID LDH BODY FLUID [[id number]] Collected: 07/27/221029 Order Status: Completed Lab Status: Final result Updated: 07/27/22 152 Specimen: PLEURAL FLUID FLUID LDH >4,000 UNITS/L Comment: REFERENCE RANGE NOT ESTABLISHED FOR THIS BODY FLUID. SOURCE (FLUID) PLEURAL FLUID CELL COUNT W/ DIFF BODY FLUID [[id number]] Collected: 07/27/221029 Order Status: Completed Lab Status: Final result Updated: 07/27/22 154 Specimen: PLEURAL FLUID SOURCE (FLUID) PLEURAL FLUID FL WBC 144.450 x10'3/uL Comment: REFERENCE RANGE NOT ESTABLISHED FL RBC 0.090 x10'6/uL Comment: REFERENCE RANGE NOT ESTABLISHED DIFFERENTIAL MANUAL DIFFERENTIAL PERFORMED ON CONCENTRATED CYTOSPIN CELLS COUNTED 100 No COUNTED SEGS (FLUID) 97 % LYMPHS (FLUID) 3 % PROTEIN TOTAL FLUID [[id number]] Collected: 07/27/221029 Order Status: Completed Lab Status: Final result Updated: 07/27/22 152 Specimen: PLEURAL FLUID PROTEIN (FLUID) 3.5 G/DL Comment: REFERENCE RANGE NOT ESTABLISHED FOR THIS BODY FLUID. SOURCE (FLUID) PLEURAL FLUID CULTURE, BODY FLUID W/ GRAM STAIN [[id number]] Collected: 07/27/221029 Order Status: Canceled Lab Status: No result Specimen: PLEURAL FLUID CULTURE, ANAEROBIC [[id number]] Collected: 07/27/221029 Order Status: Canceled Lab Status: No result Specimen: PLEURAL FLUID CULTURE, BODY FLUID W/ GRAM STAIN [[id number]] (Susceptibility) Collected: 07/27/221029 Order Status: Completed Lab Status: Final result Updated: 07/31/22 075 Specimen: PLEURAL FLUID Spec. Description PLEURAL FLUID: RT Special Requests: NO SPECIAL REQUEST Gram Stain Result -- MANY NEUTROPHILS SEEN Gram Stain Result NO ORGANISMS SEEN Culture Result: -- RARE STAPHYLOCOCCUS EPIDERMIDIS Susceptibility Staphylococcus epidermidis ARLEN (VITEK) CLINDAMYCIN Sensitive ERYTHROMYCIN Sensitive GENTAMICIN Sensitive OXACILLIN Sensitive PENICILLIN G Resistant RIFAMPIN Sensitive TETRACYCLINE Sensitive TRIMETH-SULFAMETH. Resistant VANCOMYCIN Sensitive CULTURE, ANAEROBIC [[id number]] Collected: 07/27/22 1030 Order Status: Completed Lab Status: Preliminary result Updated: 07/30/22 174 Specimen: SITE Spec. Description SITE: RT PLEURAL FLUID Special Requests: NO SPECIAL REQUEST Culture Result: -- FEW MICROAEROPHILIC STREPTOCOCCUS BLASTOMYCES AG MVISTA (TM), EIA [[id number]] Order Status: No result Lab Status: No result Specimen: BLOOD BLASTOMYCES AG MVISTA (TM), EIA [[id number]] Order Status: No result Lab Status: No result Specimen: URINE CORONAVIRUS (COVID 19) PCR - Asymptomatic patients, may be completed at physician discretion [[id number]] Collected: 07/25/222031 Order Status: Sent Lab Status: No result Specimen: NASOPHARYNGEAL SWAB STREP PNEUMO AG URINE [[id number]] Collected: 07/25/222030 Order Status: Completed Lab Status: Final result Updated: 07/26/221425 Specimen: URINE, VOIDED S. PNEUMONIAE URINARY AG NEGATIVE Comment: PRESUMPTIVE NEGATIVE FOR PNEUMOCOCCAL PNEUMONIA, SUGGESTING NO CURRENT OR RECENT PNEUMOCOCCAL INFECTION. INFECTION DUE TO STREPTOCOCCUS PNEUMONIA CANNOT BE RULED OUT SINCE THE ANTIGEN PRESENT IN THE SAMPLE MAY BELOW THE DETECTION LIMIT OF THE TEST. Specimen Type URINE VOIDED MRSA PCR nares Screening [[id number]] Collected: 07/25/222030 Order Status: Canceled Lab Status: No result Specimen: NASAL CULTURE, BACTERIA, BLOOD [[id number]] Collected: 07/25/221416 Order Status: Completed Lab Status: Final result Updated: 07/30/222144 Specimen: BLOOD Spec. Description BLOOD Special Requests: NO SPECIAL REQUEST Culture Result: NO GROWTH 5 DAYS CULTURE, BACTERIA, BLOOD [[id number]] Collected: 07/25/221415 Order Status: Completed Lab Status: Final result Updated: 07/30/222144 Specimen: BLOOD Spec. Description BLOOD Special Requests: BLOOD-AEROBIC BOTTLE ONLY Culture Result: NO GROWTH 5 DAYS Radiology MEDICATIONS Scheduled medications ??? cefepime 2 g Intravenous Q12H ??? FLUoxetine 20 mg Oral Daily ??? gabapentin 300 mg Oral BID ??? ipratropium-albuterol 3 mL Nebulization Q4H ??? lidocaine-EPINEPHrine 20 mL Intradermal Once ??? metroNIDAZOLE 500 mg Oral 3 times per day ??? traZODone 100 mg Oral Nightly at bedtime ??? vancomycin 1,000 mg Intravenous Q12H ??? vancomycin pharmacy to dose Intravenous See Admin Instructions Infusion PRN acetaminophen, albuterol sulfate HFA, alteplase, cyclobenzaprine, fentaNYL, HYDROcodone-acetaminophen, influenza virus vaccine (QUAD), lidocaine, LORazepam, morphine, morphine, ondansetron, sodium chloride ASSESSMENT /PLAN Ray Phillips is a 67-year-old male with the following history as recorded in [facility]: Problem List Items Addressed This Visit None PLAN: I assumed care 7 am today Acute hypoxic respiratory failure- resolved COPD exacerbation improved Necrotizing pneumonia of right lower lobe Loculated right pleural effusion/ 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 Cysts on US Chronic anemia Chronic back pain Anxiety/depression History of tobacco abuse Chronic compression fracture of L3 Lumbar spondylosis History of back trauma ? Continue supportive care Mechanical DVT prophylaxis I SHOWED PT AND HIS CT scan images and explained plan of care - need cultures, improvement in loculated effusions removal of chest tube , iv antibiotics to be arranged - time spent was 45 mins With more than 50% of time spent in education and counselling LANRE WINTER MD 11:32 AM 07/31/2022 APEUTIC SPECIALIST * Estephania Long RN - 07/31/2022 9:09 AM CST 07/31/22 0909 Interdisciplinary Group Conference Team Members Present Physician;Case/Care management (Dr. Winter : [facility]) Barriers to Discharge Barriers Not Medically ready Not Medically ready follow up [facility] Status: Chest tube: s/p bronch Pulm following APEUTIC SPECIALIST * Ford Tay - 07/31/2022 8:47 AM CST Vancomycin Pharmacokinetic Progress Note Day 6 of therapy Ray Phillips is a 67-year-old male for which pharmacy has been consulted to dose vancomycin for Nectrotizing Pneumonia of right lower lung. Loculated Pleural Effusions Other antibiotics ordered include azithromycin 500 mg IV Q24H (07/25-07/29), cefepime 2 mg IV Q12H (07/25-) and metronidazole 500 mg Q8H (07/30-) Historical vancomycin use: vancomycin 1000 mg x1 07/23/22 @2330 Allergies: Allergies Allergen Reactions ??? Motrin [Ibuprofen] Shortness of Breath ??? Nsaids Shortness of Breath and GI Upset ??? Prednisone Shortness of Breath Height: 5' 5 (1.651 m) Weight: 67.5 kg (148 lb 12.8 oz) Body mass index is 24.76 kg/m??. Temp (24 hr max): Temp Av.1 ??F (36.7 ??C) Min: 97.8 ??F (36.6 ??C) Max: 98.4 ??F (36.9 ??C) Today's labs and vitals: Lab Results Component Value Date/Time WBC 16.2 (H) 07/31/2022 09:41 AM WBC 13.5 (H) 07/28/2022 07:03 AM WBC 21.3 (H) 07/27/2022 02:40 AM WBC 17.5 (H) 07/26/2022 02:38 AM WBC 17.6 (H) 07/25/2022 02:16 PM Lab Results Component Value Date/Time CR 0.74 07/31/2022 11:13 AM CR 0.73 07/28/2022 07:03 AM CR 0.91 07/27/2022 02:40 AM CR 0.66 (L) 07/26/2022 02:38 AM CR 0.57 (L) 07/25/2022 02:16 PM CrCl = estimated creatinine clearance is 86.6 mL/min (based on SCr of 0.74 mg/dL). Intake/Output Summary (Last 24 hours) at 07/31/2022 1256 Last data filed at 07/31/2022 0800 Gross per 24 hour Intake 500 ml Output 1150 ml Net -650 ml Pertinent Cultures: Date Drawn Site Organism Pertinent Sensitivity 07/25 BCX 2/ NGTD Strep PNU Urine Negative 07/28 Sputum GPC GNR Alpha Strep 07/29 Sputum Alpha Strep, moderate presuptive CA 07/30 Bronch wash Many neutrophils, culture pending 07/27 (last updated 07/31) Pleural fluid Staph epi Sensitive to clindamycin, erythromycin, gentamicin, oxacillin, rifampin, tetracycline, and vancomycin 07/27 (last updated 07/30) Pleural fluid Microaerophilic strep No pertinent past Epic positive culture history Levels: Date Time Level AUC Dose Comments 07/28 0703 7 336 1.75 gm x1 1.25 gm x2 24h 3m 07/30 0617 24.4 464 1.75 gm x1 1.25 gm x2 1.00 gm x4 3h 55m Assessment: Ray Phillips is a 67-year-old male who is currently receiving vancomycin. AUC goal is 400 - 600 Current AUC level is Therapeutic Renal function is Fluctuating SCr 0.57-->0.91-->0.73 WBC improving DESTINI ID is consulted Bronchoscopy performed yesterday. Results pending. Plan: Antibiotic Plan: Resume scheduled dosing with 1000 mg q12h (est. AUC of 510) Next level due: 08/01 w/ AM labs Pharmacy will continue to follow cultures, clinical status, and appropriateness of therapy. Thank you for the consult. Pharmacy Consult per Dr. Srinath Tay Phone: [phone] 07/31/2022 12:56 PM Cosigned by Maria Antonia Quiñones, PharmD at 07/31/2022 2:22 PM THERAPEUTIC SPECIALIST APEUTIC SPECIALIST APEUTIC SPECIALIST APEUTIC SPECIALIST APEUTIC SPECIALIST * Raquel Wetzel MD - 07/31/2022 6:52 AM CST Daily Progress Note Raquel Wetzel MD General Surgery Resident ID: Ray Phillips is a 67-year-old male : 1955 LOS: 7 ASSESSMENT/PLAN 67 year-old male with R parapneumonic effusion s/p R chest tube placement and TPA infusion by IR on07/27 VSS, on 1L O2 R pleural effusion improved. Small left sided effusion Chest tube management per IR WBC increased today CTA ordered today Attending: Dr. Blackburn SUBJECTIVE: Denies dyspnea or chest pain. Feels much better overall. Medications: Current Facility-Administered Medications: ??? acetaminophen (TYLENOL) tablet 650 mg, 650 mg, Oral, Q4H PRN, Tracy Yo MD ??? albuterol sulfate HFA 108 (90 Base) MCG/ACT inhaler 2 puff, 2 puff, Inhalation, Q4H PRN, Tracy Yo MD ??? alteplase (CATHFLO) injection, , , Code/Trauma/Sedation Med, Raul Osuna MD, 2 mg at 07/27/22 1034 ??? ceFEPIme (MAXIPIME) 2 g in sodium chloride (PF) 0.9 % 10 mL IV, 2 g, Intravenous, Q12H, Tracy Yo MD, 2 g at 08/01/22 0505 ??? cyclobenzaprine (FLEXERIL) tablet 10 mg, 10 mg, Oral, TID PRN, Tracy Yo MD, 10 mg at 07/26/22 0828 ??? fentaNYL (SUBLIMAZE) injection, , , Code/Trauma/Sedation Med, Raul Osuna MD, 50 mcg at 07/27/22 1014 ??? FLUoxetine (PROzac) capsule 20 mg, 20 mg, Oral, Daily, Tracy Yo MD, 20 mg at 07/31/22 0810 ??? gabapentin (NEURONTIN) capsule 300 mg, 300 mg, Oral, BID, Tracy Yo MD, 300 mg at 07/31/222008 ??? HYDROcodone-acetaminophen (NORCO) 10-325 MG tablet 1 tablet, 1 tablet, Oral, Q6H PRN, Tracy Yo MD, 1 tablet at 08/01/22 0505 ??? influenza virus vaccine (QUAD) injection 0.5 mL, 0.5 mL, Intramuscular, Once PRN, Florencio Amaya MD ??? ipratropium-albuterol (COMBIVENT RESPIMAT) 20-100 MCG/ACT inhaler 1 puff, 1 puff, Inhalation, Q4H, Lanre Winter MD, 1 puff at 08/01/22 0643 ??? lidocaine (XYLOCAINE) 1 % injection SOLN, , , Code/Trauma/Sedation Med, Raul Osuna MD, 8 mLat 07/27/22 1016 ??? lidocaine-EPINEPHrine 2 %-1:229658 injection 20 mL, 20 mL, Intradermal, Once, Nery Patrick MD ??? LORazepam (ATIVAN) tablet 1 mg, 1 mg, Oral, BID PRN, Tracy Yo MD, 1 mg at 07/31/22 1750 ??? metroNIDAZOLE (FLAGYL) tablet 500 mg, 500 mg, Oral, 3 times per day, Paulina Dale, JONELLE, 500 mg at 08/01/22 0505 ??? morphine (MSIR) tablet 30 mg, 30 mg, Oral, Q8H PRN, Tracy Yo MD, 30 mg at 08/01/22 0241 ??? morphine injection 1 mg, 1 mg, Intravenous, Q6H PRN, Florencio Amaya MD, 1 mg at 07/30/22 1753 ??? ondansetron (ZOFRAN) injection 4 mg, 4 mg, Intravenous, Q8H PRN, Tracy Yo MD ??? sodium chloride (OCEAN) 0.65 % nasal spray 1 spray, 1 spray, Each Nostril, PRN, Tracy Yo MD, 1 spray at 07/25/22 2305 ??? traZODone (DESYREL) tablet 100 mg, 100 mg, Oral, Nightly at bedtime, Tracy Yo MD, 100 mg at 07/31/222008 ??? vancomycin 1000 mg in NS 250 mL IVPB, 1,000 mg, Intravenous, Q12H, Florencio Amaya MD, Stopped at 08/01/22 0505 ??? Pharmacy to dose vancomycin, , , Once AND vancomycin pharmacy to dose placeholder, , Intravenous, See Admin Instructions, Tracy Yo MD Scheduled Meds: ??? cefepime 2 g Intravenous Q12H ??? FLUoxetine 20 mg Oral Daily ??? gabapentin 300 mg Oral BID ??? ipratropium-albuterol 1 puff Inhalation Q4H ??? lidocaine-EPINEPHrine 20 mL Intradermal Once ??? metroNIDAZOLE 500 mg Oral 3 times per day ??? traZODone 100 mg Oral Nightly at bedtime ??? vancomycin 1,000 mg Intravenous Q12H ??? vancomycin pharmacy to dose Intravenous See Admin Instructions Continuous Infusions: PRN Meds: acetaminophen, albuterol sulfate HFA, alteplase, cyclobenzaprine, fentaNYL, HYDROcodone-acetaminophen, influenza virus vaccine (QUAD), lidocaine, LORazepam, morphine, morphine, ondansetron,sodium chloride OBJECTIVE Vital signs in the last 24 hours: Vitals: 08/01/22 0450 BP: 133/73 Pulse: 63 Resp: 14 Temp: 98.6 ??F (37 ??C) SpO2: 94% Intake/Output last 3 shifts: I/O last 3 completed shifts: In: 360 [P.O.:360] Out: 600 [Urine:600] Intake/Output this shift: I/O this shift: In: - Out: 20 [Chest Tube:20] Today's Weight: Last Recorded Weight 11/04/17 1300 Weight: 2344 g (5 lb 2.7 oz) Yesterday's Weight: Wt Readings from Last 1 Encounters: 11/04/17 2344 g (5 lb 2.7 oz) Weight change in the last 24 hours: an appropriate measurement is not found Examination: General: NAD Lungs: easy respirations, symmetric chest rise. On 1L NC. Right sided pigtail chest tube in place Heart: regular rate and rhythm Neuro: AAOx3, no focal deficits Psych: appropriate mood and affect Labs and Cultures: CBC Lab Results Component Value Date/Time WBC 11.1 (H) 08/01/2022 02:42 AM Lab Results Component Value Date/Time RBC 2.58 (L) 08/01/2022 02:42 AM Lab Results Component Value Date/Time HGB 8.6 (L) 08/01/2022 02:42 AM Lab Results Component Value Date/Time HCT 26.4 (L) 08/01/2022 02:42 AM Cosigned by Ross Blackburn MD at 08/02/2022 6:57 AM THERAPEUTIC SPECIALIST APEUTIC SPECIALIST APEUTIC SPECIALIST * Dayami Robbins MD - 07/30/2022 2:10 PM CSTSummary: [facility] ID CHART NOTE [facility] INFECTIOUS DISEASE CHART NOTE Reason for Consultation: Loculated pleural effusions, Pneumonia [facility] Infectious Disease Team Recommendations -Continue Vancomycin (per pharmacy dosing), Cefepime, and Azithromycin -Start Metronidazole PO 500 mg q 8h for concern for empyema/abscess on previous CT imaging. -Appreciate Pulmonology assistance. Plans for bronchoscopy today. Thank you for the consultation and for the opportunity to assist in the care of this patient. DESTINI ID will continue to follow. Please feel free to contact us with regards to any questions or concerns. Paulina Dale APRN [facility] Infectious Disease 07/30/2022 Teaching physician note: Infectious Diseases Attending Physician: Labs and vitals reviewed. [facility] Infectious Disease mid-level provider's note reviewed and findings verified. Case discussed with the Infectious Disease team APEUTIC SPECIALIST APEUTIC SPECIALIST APEUTIC SPECIALIST * Ford Tay - 07/30/2022 1:48 PM CST Vancomycin Pharmacokinetic Progress Note Day 5 of therapy Ray Phillips is a 67-year-old male for which pharmacy has been consulted to dose vancomycin for Hospital-acquired Pneumonia. Loculated Pleural Effusions Other antibiotics ordered include azithromycin 500 mg IV Q24H (07/25-07/29) and cefepime 2 mg IV Q12H (07/25-) Historical vancomycin use: vancomycin 1000 mg x1 07/23/22 @2330 Allergies: Allergies Allergen Reactions ??? Motrin [Ibuprofen] Shortness of Breath ??? Nsaids Shortness of Breath and GI Upset ??? Prednisone Shortness of Breath Height: 5' 5 (1.651 m) Weight: 67.5 kg (148 lb 12.8 oz) Body mass index is 24.76 kg/m??. Temp (24 hr max): Temp Av.5 ??F (36.4 ??C) Min: 97.5 ??F (36.4 ??C) Max: 97.5 ??F (36.4 ??C) Today's labs and vitals: Lab Results Component Value Date/Time WBC 13.5 (H) 07/28/2022 07:03 AM WBC 21.3 (H) 07/27/2022 02:40 AM WBC 17.5 (H) 07/26/2022 02:38 AM WBC 17.6 (H) 07/25/2022 02:16 PM Lab Results Component Value Date/Time CR 0.73 07/28/2022 07:03 AM CR 0.91 07/27/2022 02:40 AM CR 0.66 (L) 07/26/2022 02:38 AM CR 0.57 (L) 07/25/2022 02:16 PM CrCl = estimated creatinine clearance is 87.8 mL/min (based on SCr of 0.73 mg/dL). Intake/Output Summary (Last 24 hours) at 07/30/2022 1348 Last data filed at 07/30/2022 0600 Gross per 24 hour Intake -- Output 0 ml Net 0 ml Pertinent Cultures: Date Drawn Site Organism Pertinent Sensitivity 07/25 BCX 2/2 NGTD Strep PNU Urine Negative 07/28 Sputum GPC GNR 07/29 Sputum Alpha Strep, moderate presuptive CA No pertinent past Epic positive culture history Levels: Date Time Level AUC Dose Comments 07/28 0703 7 336 1.75 gm x1 1.25 gm x2 24h 3m 07/30 0617 24.4 464 1.75 gm x1 1.25 gm x2 1.00 gm x4 3h 55m Assessment: Ray Phillips is a 67-year-old male who is currently receiving vancomycin. AUC goal is 400 - 600 Current AUC level is Therapeutic Renal function is Fluctuating SCr 0.57-->0.91-->0.73 DESTINI ID is consulted Plan: Antibiotic Plan: Scr improving - resume scheduled dosing with 1000 mg q12h (est. auc of 475) Next level due: 08/01 w/ AM labs Pharmacy will continue to follow cultures, clinical status, and appropriateness of therapy. Thank you for the consult. Pharmacy Consult per Dr. Srinath Tay Phone: [phone] 07/30/2022 1:48 PM Cosigned by Maria Antonia Quiñones, PharmD at 07/31/2022 8:10 AM THERAPEUTIC SPECIALIST APEUTIC SPECIALIST APEUTIC SPECIALIST APEUTIC SPECIALIST * Patel Kelsey MD - 07/30/2022 1:20 PM CST [facility] PULMONOLOGY??PROGRESS??NOTE ?? Attending Provider:??Florencio Amaya MD PCP:??GRACIELA LEIGH MD? Reason for Admission:?Respiratory failure ([facility]) ?? Reason for Consult:??Respiratory failure, necrotizing pneumonia,??possible loculated??effusion??- empyema or abscess vs bronchopleural fistula ? ASSESSMENT/PLAN Ray Phillips??is a 67-year-old??male, with history of??chronic back pain,??50-pk year history smoking??who presented??with worsening shortness of breath over??2-3 week period. Presented with CT imaging concerning for loculated fluid collection in right posterior pleural cavity - pneumonia vs empyema or abscess vs bronchopleural fistula. Concern for malignancy as well given history of asbestos exposure, smoking history, and family history of lung cancer. ??requiring 8-10L nasal cannula. DESTINI ID and CT surgery as consulting services as well.??Oxygenation has improved post chest tube placement.? DESTINI Pulmonology consulted for??above. ?? Problem List:?? Acute hypoxic respiratory failure Probable COPD? Necrotizing pneumonia of right lower lobe Loculated right pleural effusion Possible??Pulmonary edema Small pericardial effusion Splenomegaly Acute blood loss anemia? Hypokalemia requiring monitoring and treatment Chronic back pain Anxiety/depression History of tobacco abuse Chronic compression fracture of L3 Lumbar spondylosis History of back trauma Pericardial effusion ?? Active workup:?? CT imaging reviewed. 07/26 - Labs reviewed, Hgb 7.6, WBC 17.5 Procalcitonin 1.83?? Sputum cultures with GNR ?? [facility] Pulmonology Plan/ Recommendations: -??s/p Chest tube placement 07/27/22 - will follow cultures, labs??- TPA/dornase per IR for loculations - Bronchoscopy communications billing analyst for this afternoon, est 3:00pm, will follow results. - Antibiotics per ID - currently on vanc, cefepime -??Completed 5 day steroid course of possible COPD exacerbation, will discontinue. - Will monitor remainder of cultures from chest tube/sputum - Rest of care per primary team ?? Thank you for the consult. We will continue to follow.?? Patel Kelsey MD 07/30/2022 SUBJECTIVE Patient doing ok this morning, off oxygen, no shortness of breath. States he is hungry. Has no fever or chills. No chest pain. Review of Systems All other systems reviewed and are negative. OBJECTIVE Vitals: Filed Vitals: 07/29/22 2141 07/30/22 0130 07/30/22 0241 07/30/22 0357 BP: 108/55 112/62 103/52 Pulse: 59 57 57 Resp: 12 Temp: 97.5 ??F (36.4 ??C) TempSrc: SpO2: 91% 93% 94% 91% Weight: Height: Physical Exam Constitutional: General: He is not in acute distress. Appearance: Normal appearance. He is normal weight. HENT: Head: Normocephalic and atraumatic. Mouth/Throat: Mouth: Mucous membranes are moist. Eyes: General: No scleral icterus. Extraocular Movements: Extraocular movements intact. Conjunctiva/sclera: Conjunctivae normal. Pupils: Pupils are equal, round, and reactive to light. Cardiovascular: Rate and Rhythm: Normal rate and regular rhythm. Pulses: Normal pulses. Heart sounds: Normal heart sounds. No murmur heard. Pulmonary: Effort: Pulmonary effort is normal. No respiratory distress. Breath sounds: No wheezing. Comments: Chest tube in place right sided. Crackles RLL. Abdominal: General: Bowel sounds are normal. There is no distension. Palpations: Abdomen is soft. Tenderness: There is no abdominal tenderness. There is no guarding. Musculoskeletal: General: No tenderness. Skin: General: Skin is warm and dry. Coloration: Skin is not jaundiced. Neurological: General: No focal deficit present. Mental Status: He is alert and oriented to person, place, and time. Cranial Nerves: No cranial nerve deficit. Psychiatric: Mood and Affect: Mood normal. Behavior: Behavior normal. Medications: ??? cefepime 2 g Intravenous Q12H ??? EPINEPHrine 1 mg/mL 1 mg Endotracheal Once ??? FLUoxetine 20 mg Oral Daily ??? gabapentin 300 mg Oral BID ??? ipratropium-albuterol 3 mL Nebulization Q4H ??? lidocaine-EPINEPHrine 20 mL Intradermal Once ??? traZODone 100 mg Oral Nightly at bedtime ??? vancomycin 1,000 mg Intravenous Q12H ??? vancomycin pharmacy to dose Intravenous See Admin Instructions PRN: acetaminophen, albuterol sulfate HFA, alteplase, cyclobenzaprine, fentaNYL, HYDROcodone-acetaminophen, influenza virus vaccine (QUAD), lidocaine, LORazepam, morphine, morphine, ondansetron, sodium chloride Allergies Allergen Reactions ??? Motrin [Ibuprofen] Shortness of Breath ??? Nsaids Shortness of Breath and GI Upset ??? Prednisone Shortness of Breath Intake/Output Summary (Last 24 hours) at 07/30/2022 1323 Last data filed at 07/30/2022 0600 Gross per 24 hour Intake -- Output 0 ml Net 0 ml Labs: Recent Labs Lab 07/25/22 1416 07/25/22 1723 07/25/22 2056 07/26/22 0238 07/26/22 1255 07/27/22 0240 07/28/22 0703 WBC 17.6* -- -- 17.5* -- 21.3* 13.5* RBC 2.07* -- -- 2.26* -- 1.98* 2.51* HGB 7.0* 8.1* 7.5* 7.6* 7.1* 6.5* 8.3* HCT 21.0* 24.4* 23.2* 22.9* 21.5* 20.2* 25.1* MCV 101.4* -- -- 101.3* -- 102.0* 100.0 MCH 33.8* -- -- 33.6* -- 32.8* 33.1* MCHC 33.3 -- -- 33.2 -- 32.2* 33.1 PLT 260 -- -- 283 -- 347 303 RDW 13.6 -- -- 13.8 -- 14.2 14.7* NEUC 14.78* -- -- 16.80* -- 20.24* 11.61* LYMC 2.29 -- -- 0.53* -- 0.85 1.08 MONOC 0.53 -- -- 0.18 -- 0.21 0.81 EOSC 0.00 -- -- 0.00 -- 0.00 0.00 BASOC 0.00 -- -- 0.00 -- 0.00 0.00 Recent Labs Lab 07/25/22 1416 07/26/22 0238 07/27/22 0240 07/28/22 0703 NA 137 135* 138 137 K 3.4* 4.5 3.7 4.0 CL 106 105 106 105 CO2 24.7 26.8 26.0 28.7 BUN 17 15 22* 19* CR 0.57* 0.66* 0.91 0.73 GLU 85 137* -- 98 CA 7.8* 8.1* 8.2* 7.9* TP 5.3* 5.3* -- -- ALB 1.5* 1.5* -- -- TBIL 0.3 0.2 -- -- ALKP 61 60 -- -- AST 23 19 -- -- ALT 23 20 -- -- Recent Imaging: Radiology Results (Last 48 hours) 07/30/22 0527 XR CHEST PORTABLE Final result Impression: IMPRESSION: 1) Interval decrease in small left pleural effusion and left basilar consolidation. No other significant change. Ordered By: RODNEY NOLASCO Interpreted By: Nigel Peña MD, 07/30/2022 8:33 AM Cosigned by Danielle Avelar DO at 07/30/2022 9:55 PM THERAPEUTIC SPECIALIST APEUTIC SPECIALIST APEUTIC SPECIALIST Associated attestation - Danielle Avelar DO - 07/30/2022 9:55 PM THERAPEUTIC SPECIALIST [facility] Pulmonary/Critical Care Medicine Attending Note: I rounded with the senior premium auditor and residents. I interviewed and examined the patient, reviewedthe recent radiology images and labs, including ABGs. I reviewed and discussed the resident's note and I agree with the interval history, physical examination, assessment, and plan. Please see below any additional findings: Sputum with GNR. Bronchoscopy performed today. Chest tube output decreasing, IR managing. We will continue to follow DANIELLE AVELAR DO * Odalis SMITH Serrano - 07/30/2022 1:11 PM CST OT Treatment Discharge Recommendation: home with assistance DME equipment recommendation: TBD Activity Recommendation for configuration management specialist: up for all meals in chair, commode for toileting, transfers with assist of 1 07/30/22 1023 Therapy Visit OT Received On 07/27/22 Reason for admission Pt is a 67 yo male who presents with SOB, PNA, hydropneumothorax, and loculated effusions. Pt may requires chest tube placement.....PMH:chronic back pain due to back trauma 20 years ago, anxiety/depression, tobacco abuse....Eval and tx, activity as tolerated Ordering Provider Tracy Yo MD Verified Two Patient Identifiers Yes Patient consents to therapy Yes Acute Inpatient OT Time Calculation OT Start Time 1023 OT Stop Time 1042 OT Time Calculation (min) 19 min Precautions General Precautions Bed Alarm;Chair Alarm;Multiple lines;Fall Risk Instructed on Precautions Yes;Verbalizes understanding Other tele, chest tube to wall suction Home Living Home Living Comments Pt lives with in a 1 SH with no PRANAY. Pt has a walk in shower with shower chair, and gbs. Pt has a tall toilet with sink closeby. Pt has a 2ww, and cane but was not using at home. 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 Pt reports he was not on home O2, and no falls. Subjective Subjective Rn ok'd session. Patient presents in bed with spouse at bedside. Patient reports he has rods in his back and cant stand up straight. Pain Pain Yes Pain Score Did not rate Location chronic back pain Interventions Informed RN;Re-positioning Activity Tolerance Endurance Quality Fair Limiting Factors to Endurance Fatigue;Weakness Cognition Overall Cognitive Status WFL Arousal/Alertness Appropriate responses to stimuli Attention Span Appears intact Memory Appears intact Orientation Level Oriented X4 Following Commands Follows all commands and directions without difficulty Safety Judgment Decreased awareness of need for safety Awareness of Errors Good awareness of errors made Deficits Fully aware of deficits Problem Solving Able to problem solve independently Motor Planning Appears intact Perseveration Not present Initiation Appears intact ADL UE Dressing Assistance Stand by;Sitting at EOB UE Dressing Deficit Setup UE Dressing Comment assist for line management only LE Dressing Assistance Stand by;Sitting at EOB LE Dressing Comment able to don slippers at EOB. Bed Mobility Supine to Sit Modified independence Other (Comment) with HOB elevated using rails Functional Transfers Sit to Stand SBA/supervision Bed to Chair SBA/supervision Functional Mobility Patient able to perform sit to stands at SBA; once in standing patient wtih kyphotic posture and is using straight cane to transfer to recliner chair. Patient limited by chest tube to wall suction at this time. Balance Sitting - Static Independent Sitting - Dynamic Independent Standing - Static SBA Standing - Dynamic SBA Recommendation OT Recommendation Home with assistance OT Equipment Recommended To Be Determined Plan OT Treatment/Intervention Self-care training;Functional activity Progress Slow progress, medical status limitations OT Frequency 5 times/week OT - Next Appointment 07/30/22 If this is the last treatment note, it will serve as the discharge summary Yes End of Session End of Session Safety Chair alarm set/activated;Call light within reach;Family/friend present with patient;Nursing aware of session;Transfer status education Education: Primary Learners Name: Ray Phillips Primary Language of learner: Angolan Patient was educated on precautions transfers ADLs balance bed mobility therapy plan safety. Education was completed one to one this date. Preference of learning new concepts one to one Barriers to education this date were none. Response to education this date needs follow up. APEUTIC SPECIALIST * Florencio Amaya MD - 07/30/2022 11:52 AM CST Ray Phillips is a 67-year-old male patient admitted with refractory PNA, anemia, hydropneumothorax,loculated effusions Subjective Pt seen and examined. Breathing improved. Oxygenation improved Feels better after CT placement Pt denies BRB, Melena, HE Bronch today Principal Problem: Respiratory failure (CMS/HCC) SNOMED CT(R): RESPIRATORY FAILURE Past Medical History: Diagnosis Date ??? Chronic back pain Current Facility-Administered Medications Medication Dose Route Frequency Provider Last Rate Last Admin ??? acetaminophen (TYLENOL) tablet 650 mg 650 mg Oral Q4H PRN Tracy Yo MD ??? albuterol sulfate HFA 108 (90 Base) MCG/ACT inhaler 2 puff 2 puff Inhalation Q4H PRN Tracy Yo MD ??? alteplase (CATHFLO) injection Code/Trauma/Sedation Med Raul Osuna MD 2 mg at 07/27/22 1034 ??? ceFEPIme (MAXIPIME) 2 g in sodium chloride (PF) 0.9 % 10 mL IV 2 g Intravenous Q12H Tracy Yo MD 2 g at 07/30/22 0548 ??? cyclobenzaprine (FLEXERIL) tablet 10 mg 10 mg Oral TID PRN Tracy Yo MD 10 mg at109/25/21 0828 ??? EPINEPHrine PF (ADRENALIN) 1 mg/mL injection 1 mg 1 mg Endotracheal Once Anna Us MD ??? fentaNYL (SUBLIMAZE) injection Code/Trauma/Sedation Med Raul Osuna MD 50 mcg at 07/27/22 1014 ??? FLUoxetine (PROzac) capsule 20 mg 20 mg Oral Daily Tracy Yo MD 20 mg at 07/30/22 1026 ??? gabapentin (NEURONTIN) capsule 300 mg 300 mg Oral BID Brandon Stevan J Tarar, MD 300 mg at 07/30/22 1026 ??? HYDROcodone-acetaminophen (NORCO) 10-325 MG tablet 1 tablet 1 tablet Oral Q6H PRN Tracy Yo MD 1 tablet at 07/30/22 0547 ??? influenza virus vaccine (QUAD) injection 0.5 mL 0.5 mL Intramuscular Once PRN Florencio Amaya MD ??? ipratropium-albuterol (DUONEB) 0.5-2.5 (3) MG/3ML nebulizer solution 3 mL 3 mL Nebulization [id number] Stevan Yo MD 3 mL at 07/30/22 1120 ??? lidocaine (XYLOCAINE) 1 % injection SOLN Code/Trauma/Sedation Med Raul Osuna MD 8 mL at 07/27/22 1016 ??? lidocaine-EPINEPHrine 2 %-1:[id number] injection 20 mL 20 mL Intradermal Once Nery Patrick MD ??? LORazepam (ATIVAN) tablet 1 mg 1 mg Oral BID PRN Tracy Yo MD 1 mg at 07/25/22 1659 ??? morphine (MSIR) tablet 30 mg 30 mg Oral Q8H PRN Tracy Yo MD 30 mg at 07/30/22 1026 ??? morphine injection 1 mg 1 mg Intravenous Q6H PRN Florencio Amaya MD 1 mg at 07/30/22 0222 ??? ondansetron (ZOFRAN) injection 4 mg 4 mg Intravenous Q8H PRN Tracy Yo MD ??? sodium chloride (OCEAN) 0.65 % nasal spray 1 spray 1 spray Each Nostril PRN Tracy Yo MD 1 spray at 07/25/22 2305 ??? traZODone (DESYREL) tablet 100 mg 100 mg Oral Nightly at bedtime Tracy Yo MD 100 mg at 07/29/22 2041 ??? vancomycin 1000 mg in NS 250 mL IVPB 1,000 mg Intravenous Q12H Florencio Amaya MD Stopped at 07/30/22 0400 ??? vancomycin pharmacy to dose placeholder Intravenous See Admin Instructions Tracy Yo MD ROS 14 pt ROS ow neg Vitals: 07/30/22 0357 BP: 103/52 Pulse: 57 Resp: Temp: SpO2: 91% Physical Exam Physical Exam Constitutional: General: He is not in acute distress. Appearance: He is ill-appearing. He is not toxic-appearing or diaphoretic. HENT: Head: Normocephalic and atraumatic. Eyes: General: No scleral icterus. Cardiovascular: Rate and Rhythm: Normal rate and regular rhythm. Heart sounds: No murmur heard. No friction rub. No gallop. Pulmonary: Effort: Pulmonary effort is normal. No respiratory distress. Breath sounds: No stridor. Rales present bilat. R>L. No wheezing. Abdominal: General: There is no distension. Palpations: Abdomen is soft. Tenderness: There is no abdominal tenderness. There is no guarding. Musculoskeletal: General: No swelling or tenderness. Cervical back: Neck supple. Skin: General: Skin is warm and dry. Findings: No erythema or rash. Neurological: Mental Status: He is alert. Mental status is at baseline. Psychiatric: Mood and Affect: Mood normal. Recent Labs Lab 07/28/22 0703 WBC 13.5* RBC 2.51* HGB 8.3* HCT 25.1* MCV 100.0 MCH 33.1* MCHC 33.1 PLT 303 RDW 14.7* MPV 10.1 NEUC 11.61* LYMC 1.08 MONOC 0.81 EOSC 0.00 BASOC 0.00 Recent Labs Lab 07/28/22 0703 NA 137 K 4.0 CL 105 CO2 28.7 AGAP 3.3* BUN 19* CR 0.73 GLU 98 CA 7.9* CTA CHEST+ABD+PEL Result Date: 07/26/2022 IMPRESSION: 1. Air-fluid level within loculated fluid collection in the right posterior pleural cavity related to loculated hydropneumothorax, empyema or abscess versus bronchopleural fistula. Pleasecorrelate clinically. 2. Loculated pleural fluid in the posterior medial and posterolateral aspect of the right lower chest. Very small left pleural effusion. 3. Loculated pleural effusion adjacent to the right heart border or less likely loculated pericardial effusion. 4. Patchy areas of atelectasis versus infiltrate bilaterally in the lungs, greatest in the lower lobes and in the left upper lobe as noted above. Please correlate clinically for atypical pneumonia. 5. At least 3 hypodense lesions in the spleen with the largest 1.8 cm. Recommend correlation with ultrasound of the spleen for further evaluation. 6. Slight surface nodularity of the liver; please correlate clinically for possiblecirrhosis of the liver. 7. Please see the CT lumbar spine exam of 08/22/2021 regarding postoperative and other chronic findings involving the lumbar spine with chronic compression deformity of anterior L3 vertebral body. 8. Increased density in the gallbladder concerning for gallstones. Dilated common duct measuring up to 1.5 cm. Recommend right upper quadrant ultrasound exam for further evaluation. 9. Small hiatal hernia. 10. Please see above report for the other findings. This CT exam was performed using one or more of the following dose reduction techniques: automated exposure control, adjustment of the mA and/or kV according to patient size, and/or use of iterative reconstruction's technique. Referred By: PROVIDER NON-STAFF Electronically Signed By: Karine Sher MD on 21:23 AM Interpreted By: Karine Sher MD, 07/26/2022 12:56 AM XR CHEST PORTABLE Result Date: 07/26/2022 IMPRESSION: Loculated effusion on the right. Bilateral pulmonary opacifications due to atelectasis or infiltrate greatest in the right lower lung and throughout the left lung. Left effusion. ReferredBy: PROVIDER NON-STAFF Interpreted By: Rudy Montaño MD, 07/26/2022 7:27 AM Plan Acute hypoxic respiratory failure COPD Necrotizing pneumonia of right lower lobe Loculated right pleural effusion/ possible bronchopleural fistula Hemopneumothorax s/p CT with TPA infusion Small pericardial effusion Splenomegaly with hypodense lesions. Cysts on US Acute blood loss anemia vs Chronic anemia Hypokalemia requiring monitoring and treatment Chronic back pain Anxiety/depression History of tobacco abuse Chronic compression fracture of L3 Lumbar spondylosis History of back trauma Probable COPD with exacerbation Possible Pericardial effusion. Echo neg for effusion ?? 67-year-old male being admitted for diffuse lung disease and right lower lobe pneumonia that did not respond to antibiotics at outlying hospital. ?? Pneumonia Acute hypoxic resp failure Loculated pneural effusion CTA overnight with hydropneumothorax, loculated organized effusions Probable underlying COPD with exacerbation Hx 50 year smoking hx -blood cultures x2. -sputum culture aerobic/anaerobic, fungal culture, strep pneumo, Legionella ag. Obtain AFB smear. -Cont cefepime, vancomycin, azithromycin. --Monitor SPO2 -Pulmonology consulted for possible bronch. NPO for bronch today -s/p CT by IR. S/p TPA. Fluid exudative. Cont to water seal. followup imaging and further manipulation of tube as needed. -ID consulted given refractory nature / Atypical nature of PNA -Sats stable -Case discussed with ICU previously -NPO after MN for bronch ??-Cultures reviewed. Sputum GNR, GPC, Yeast, not finalized -Pleural fluid NGTD Anemia/Bleeding?? - STAT CTA chest/abdomen/pelvis neg for source of bleeding. We will repeat H/H in case this is an erroneous result. Haptoglobin, LDH and smear ordered -S/p 1 unit PRBC. ?? Small pericardial effusion: -Obtain TTE to further evaluate pericardial effusion. This was reported small and could be secondary to infection and/or malignancy. No clinical hemodynamic compromise at this time. Echo neg for effusion Splenic lesions Blood cultures done Rule out embolic lesions US c/w cysts. No further workup needed Hypokalemia:-replace K ?? Chronic back pain, hx back injury -Continue home meds for pain and anxiety, has chronic low back pain due to back trauma. Has chronicT3 compression fracture. ?? Monitor closely on IMC. Low threshold for ICU transfer. Will discuss with ICU team if anemia and/ or respiratory failure worsens. ?? Continue supportive care Mechanical DVT prophylaxis Discharge Disposition Unclear 36 min spent on patient, including consultation with pulmonary, and ID. >50 percent of time spent on direct patient care. Pt critically ill with high likelihood for decompensation. FLORENCIO AMAYA MD APEUTIC SPECIALIST * Angela Dawkins RN - 07/30/2022 10:05 AM CSTSummary: D/C plans IDBR done with Dr Beatrice HARRIS MD to discuss POC/D/C plans. See notes below. 07/30/22 1005 Interdisciplinary Group Conference Team Members Present Physician;Case/Care management Barriers to Discharge Barriers Not Medically ready Not Medically ready follow up Pt to continue [facility] status-necrotizing pneumonia, chest tube, having Bronchoscopy today with cultues. CM following. PT/OT recs home with assist when able. CM following. APEUTIC SPECIALIST * Patel Kelsey MD - 07/29/2022 12:53 PM CST [facility] PULMONOLOGY??PROGRESS??NOTE ?? Attending Provider:??Florencio Amaya MD PCP:??GRACIELA LEIGH MD? Reason for Admission:?Respiratory failure (CMS/HCC) ?? Reason for Consult:??Respiratory failure, necrotizing pneumonia,??possible loculated??effusion??- empyema or abscess vs bronchopleural fistula ? ASSESSMENT/PLAN Ray Phillips??is a 67-year-old??male, with history of??chronic back pain,??50-pk year history smoking??who presented??with worsening shortness of breath over??2-3 week period. [address] with CT imaging concerning for loculated fluid collection in right posterior pleural cavity - pneumonia vs empyema or abscess vs bronchopleural fistula. Concern for malignancy as well given history of asbestos exposure, smoking history, and family history of lung cancer. requiring 8-10L nasal cannula. [facility] ID andCT surgery as consulting services as well.??Oxygenation has improved post chest tube placement. ?? [facility] Pulmonology consulted for??above. ?? Problem List:?? Acute hypoxic respiratory failure Probable COPD? Necrotizing pneumonia of right lower lobe Loculated right pleural effusion Possible??Pulmonary edema Small pericardial effusion Splenomegaly Acute blood loss anemia? Hypokalemia requiring monitoring and treatment Chronic back pain Anxiety/depression History of tobacco abuse Chronic compression fracture of L3 Lumbar spondylosis History of back trauma Pericardial effusion ?? Active workup:?? CT imaging reviewed. 07/26 - Labs reviewed, Hgb 7.6, WBC 17.5 Procalcitonin 1.83?? Sputum cultures with GNR ?? [facility] Pulmonology Plan/ Recommendations: -??s/p Chest tube placement 07/27/22 - will follow cultures, labs - TPA/dornase per IR for loculations - Will tentatively plan for bronchoscopy Saturday (07/30/22), NPO after midnight, please hold any DVTppx night prior/day of. - Antibiotics per ID - currently on vanc, cefepime, azithromycin -??Completed 5 day steroid course of possible COPD exacerbation, will discontinue. - Rest of care per primary team ?? Thank you for the consult. We will continue to follow.?? Patel Kelsey MD 07/29/2022 SUBJECTIVE Patient seen at bedside. Doing well. Chest tube has output almost 80cc more. He is feeling well offoxygen. No shortness of breath right now. Some small sputum production overnight. No fever or chills. Review of Systems All other systems reviewed and are negative. OBJECTIVE Vitals: Filed Vitals: 07/29/22 0210 07/29/22 0525 07/29/22 0810 07/29/22 0833 BP: (!) 135/111 119/60 120/63 Pulse: 56 61 53 Resp: 15 17 15 Temp: 97.7 ??F (36.5 ??C) 97.6 ??F (36.4 ??C) 98 ??F (36.7 ??C) TempSrc: Oral Oral Oral SpO2: 97% 98% 95% 95% Weight: Height: Physical Exam Constitutional: General: He is not in acute distress. Appearance: Normal appearance. He is normal weight. HENT: Head: Normocephalic and atraumatic. Mouth/Throat: Mouth: Mucous membranes are moist. Eyes: General: No scleral icterus. Extraocular Movements: Extraocular movements intact. Conjunctiva/sclera: Conjunctivae normal. Pupils: Pupils are equal, round, and reactive to light. Cardiovascular: Rate and Rhythm: Normal rate and regular rhythm. Pulses: Normal pulses. Heart sounds: Normal heart sounds. No murmur heard. Pulmonary: Effort: Pulmonary effort is normal. No respiratory distress. Breath sounds: No wheezing. Comments: Chest tube in place right sided. Crackles RLL. Abdominal: General: Bowel sounds are normal. There is no distension. Palpations: Abdomen is soft. Tenderness: There is no abdominal tenderness. There is no guarding. Musculoskeletal: General: No tenderness. Skin: General: Skin is warm and dry. Coloration: Skin is not jaundiced. Neurological: General: No focal deficit present. Mental Status: He is alert and oriented to person, place, and time. Cranial Nerves: No cranial nerve deficit. Psychiatric: Mood and Affect: Mood normal. Behavior: Behavior normal. Medications: ??? azithromycin 500 mg Intravenous Q24H ??? cefepime 2 g Intravenous Q12H ??? FLUoxetine 20 mg Oral Daily ??? gabapentin 300 mg Oral BID ??? ipratropium-albuterol 3 mL Nebulization Q4H ??? lidocaine-EPINEPHrine 20 mL Intradermal Once ??? traZODone 100 mg Oral Nightly at bedtime ??? vancomycin 1,000 mg Intravenous Q12H ??? vancomycin pharmacy to dose Intravenous See Admin Instructions PRN: acetaminophen, albuterol sulfate HFA, alteplase, cyclobenzaprine, fentaNYL, HYDROcodone-acetaminophen, influenza virus vaccine (QUAD), lidocaine, LORazepam, morphine, morphine, ondansetron, sodium chloride Allergies Allergen Reactions ??? Motrin [Ibuprofen] Shortness of Breath ??? Nsaids Shortness of Breath and GI Upset ??? Prednisone Shortness of Breath Intake/Output Summary (Last 24 hours) at 07/29/2022 1253 Last data filed at 07/29/2022 0633 Gross per 24 hour Intake -- Output 20 ml Net -20 ml Labs: Recent Labs Lab 07/25/22 1416 07/25/22 1723 07/25/22 2056 07/26/22 0238 07/26/22 1255 07/27/22 0240 07/28/22 0703 WBC 17.6* -- -- 17.5* -- 21.3* 13.5* RBC 2.07* -- -- 2.26* -- 1.98* 2.51* HGB 7.0* 8.1* 7.5* 7.6* 7.1* 6.5* 8.3* HCT 21.0* 24.4* 23.2* 22.9* 21.5* 20.2* 25.1* MCV 101.4* -- -- 101.3* -- 102.0* 100.0 MCH 33.8* -- -- 33.6* -- 32.8* 33.1* MCHC 33.3 -- -- 33.2 -- 32.2* 33.1 PLT 260 -- -- 283 -- 347 303 RDW 13.6 -- -- 13.8 -- 14.2 14.7* NEUC 14.78* -- -- 16.80* -- 20.24* 11.61* LYMC 2.29 -- -- 0.53* -- 0.85 1.08 MONOC 0.53 -- -- 0.18 -- 0.21 0.81 EOSC 0.00 -- -- 0.00 -- 0.00 0.00 BASOC 0.00 -- -- 0.00 -- 0.00 0.00 Recent Labs Lab 07/25/22 1416 07/26/22 0238 07/27/22 0240 07/28/22 0703 NA 137 135* 138 137 K 3.4* 4.5 3.7 4.0 CL 106 105 106 105 CO2 24.7 26.8 26.0 28.7 BUN 17 15 22* 19* CR 0.57* 0.66* 0.91 0.73 GLU 85 137* -- 98 CA 7.8* 8.1* 8.2* 7.9* TP 5.3* 5.3* -- -- ALB 1.5* 1.5* -- -- TBIL 0.3 0.2 -- -- ALKP 61 60 -- -- AST 23 19 -- -- ALT 23 20 -- -- Recent Imaging: Radiology Results (Last 48 hours) 07/28/22 1139 US ABD LIMITED Final result Impression: IMPRESSION: 1. 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 The smallest of the 3 cyst demonstrates thin internal septation but appears benign. No follow-up imaging is recommended. 2. Splenomegaly. Referred By: PROVIDER NON-STAFF Interpreted By: Karine Sher MD, 07/29/2022 6:03 AM 07/28/22 0043 XR CHEST PORTABLE Final result Impression: IMPRESSION: 1. Right basilar pigtail catheter remains in place. Unchanged hazy opacity at the lateral lower right lung zone likely related to loculated pleural effusion. 2. Small layering left pleural effusion with adjacent atelectasis or airspace disease at the left lung base may be slightly increased from most recent study. Subtle hazy opacities in the left mid and upper lung not significantly changed, could also relate to atelectasis or infiltrate. Referred By: PROVIDER NON-STAFF Interpreted By: Harjinder Cobb MD, 07/28/2022 1:18 AM 07/27/22 1622 XR CHEST PORTABLE Final result Impression: IMPRESSION: 1. Right-sided pigtail chest tube. 2. Bilateral pulmonary opacities. 3. Cardiomegaly. Pulmonary vascular congestion. Ordered By: RODNEY NOLASCO Interpreted By: Can Klein DO, 07/27/2022 4:42 PM 07/27/22 1313 USE ECHOCARDIOGRAM Final result Cosigned by Patti Pineda MD at 07/29/2022 1:05 PM THERAPEUTIC SPECIALIST APEUTIC SPECIALIST APEUTIC SPECIALIST Associated attestation - Patti Pineda MD - 07/29/2022 1:05 PM THERAPEUTIC SPECIALIST Kenisha Brizuela MD, I rounded with nurses, and pulmonary team, I personally saw and examined this patient and discussed the case with the residents. I have reviewed the resident note and agree with thecontent and plan as written unless otherwise modified or corrected by me. I have reviewed the patients past medical, family, and social history, medication record and pertinent laboratory and radiology reports. I was present at bedside for the management. He has smoking history for 50 years, and asbestos exposure for 10 years back in 1996, presented with Acute respiratory failure, shortness of breath over 2-[address] imaging concerning for loculated fluid collection in right posterior pleural cavity, necrotizingpneumonia Concern for malignancy as well given history of asbestos exposure, smoking history, last CT was in 2012 for right shoulder, family history of lung cancer. He had chest tube placed with tPA per IR, sample sent to cultures, cytology, drained around 200 cc,WBC is down to 13 from 21, overall much better Currently requiring 0 - 2 L/m down from 8 L nasal cannula, was supposed to have Bronchoscopy but nostaffing per RT/ Paulina till Saturday. Seen by [facility] ID on broad coverage antibiotics, fungal serology, will need BAL and RLL assessment scheduled tomorrow COPD exacerbation on BD nebs, weaning down Solumedrol, he will need bronchoscopy BAL to RLL, if gets worse will need to transfer to ICU, discussed with ID and hospitalist GI DVT prophylaxis and rest of medical management per PCP. Patient seen and evaluated frequently during the course of the day, discussed current laboratory and radiographic data as well as plan of care, patient in agreement with above. Signed off to Dr Paige in Am * Florencio Amaya MD - 07/29/2022 11:38 AM CST Ray Phillips is a 67-year-old male patient admitted with refractory PNA, anemia, hydropneumothorax,loculated effusions Subjective Pt seen and examined. Breathing improved. Oxygenation improved Feels better after CT placement Pt denies BRB, Melena, HE Bronch moved to saturday Principal Problem: Respiratory failure (CMS/HCC) SNOMED CT(R): RESPIRATORY FAILURE Past Medical History: Diagnosis Date ??? Chronic back pain Current Facility-Administered Medications Medication Dose Route Frequency Provider Last Rate Last Admin ??? acetaminophen (TYLENOL) tablet 650 mg 650 mg Oral Q4H PRN rTacy Yo MD ??? albuterol sulfate HFA 108 (90 Base) MCG/ACT inhaler 2 puff 2 puff Inhalation Q4H PRN Tracy Yo MD ??? alteplase (CATHFLO) injection Code/Trauma/Sedation Med Raul Osuna MD 2 mg at 07/27/22 1034 ??? azithromycin (ZITHROMAX) 500 mg in NS 250 mL IVPB 500 mg Intravenous Q24H Tracy Yo MD Stopped at 07/28/22 1535 ??? ceFEPIme (MAXIPIME) 2 g in sodium chloride (PF) 0.9 % 10 mL IV 2 g Intravenous Q12H Tracy Yo MD 2 g at 07/29/22 0633 ??? cyclobenzaprine (FLEXERIL) tablet 10 mg 10 mg Oral TID PRN Tracy Yo MD 10 mg at109/25/21 0828 ??? fentaNYL (SUBLIMAZE) injection Code/Trauma/Sedation Med Raul Osuna MD 50 mcg at 07/27/22 1014 ??? FLUoxetine (PROzac) capsule 20 mg 20 mg Oral Daily Tracy Yo MD 20 mg at 07/29/22 0819 ??? gabapentin (NEURONTIN) capsule 300 mg 300 mg Oral BID Tracy Yo MD 300 mg at 07/29/22 0819 ??? HYDROcodone-acetaminophen (NORCO) 10-325 MG tablet 1 tablet 1 tablet Oral Q6H PRN Tracy Yo MD 1 tablet at 07/29/22 0939 ??? influenza virus vaccine (QUAD) injection 0.5 mL 0.5 mL Intramuscular Once PRN Florencio Amaya MD ??? ipratropium-albuterol (DUONEB) 0.5-2.5 (3) MG/3ML nebulizer solution 3 mL 3 mL Nebulization [id number] Stevan Yo MD 3 mL at 07/29/22 0832 ??? lidocaine (XYLOCAINE) 1 % injection SOLN Code/Trauma/Sedation Med Raul Osuna MD 8 mL at 07/27/22 1016 ??? lidocaine-EPINEPHrine 2 %-1:[id number] injection 20 mL 20 mL Intradermal Once Nery Patrick MD ??? LORazepam (ATIVAN) tablet 1 mg 1 mg Oral BID PRN Tracy Yo MD 1 mg at 07/25/22 1659 ??? methylPREDNISolone sodium succinate (SOLU-Medrol) injection 62.5 mg 62.5 mg Intravenous Daily Patel Kelsey MD 62.5 mg at 07/29/22 0633 ??? morphine (MSIR) tablet 30 mg 30 mg Oral Q8H PRN Tracy Yo MD 30 mg at 07/29/22 0644 ??? morphine injection 1 mg 1 mg Intravenous Q6H PRN Florencio Amaya MD 1 mg at 07/27/22 1519 ??? ondansetron (ZOFRAN) injection 4 mg 4 mg Intravenous Q8H PRN Tracy Yo MD ??? sodium chloride (OCEAN) 0.65 % nasal spray 1 spray 1 spray Each Nostril PRN Tracy Yo MD 1 spray at 07/25/22 2305 ??? traZODone (DESYREL) tablet 100 mg 100 mg Oral Nightly at bedtime Tracy Yo MD 100 mg at 07/28/22 2106 ??? vancomycin 1000 mg in NS 250 mL IVPB 1,000 mg Intravenous Q12H Florencio Amaya MD Stopped at 07/29/22 0210 ??? vancomycin pharmacy to dose placeholder Intravenous See Admin Instructions Tracy Yo MD ROS 14 pt ROS ow neg Vitals: 07/29/22 0833 BP: Pulse: Resp: Temp: SpO2: 95% Physical Exam Physical Exam Constitutional: General: He is not in acute distress. Appearance: He is ill-appearing. He is not toxic-appearing or diaphoretic. HENT: Head: Normocephalic and atraumatic. Eyes: General: No scleral icterus. Cardiovascular: Rate and Rhythm: Normal rate and regular rhythm. Heart sounds: No murmur heard. No friction rub. No gallop. Pulmonary: Effort: Pulmonary effort is normal. No respiratory distress. Breath sounds: No stridor. Rales present bilat. R>L. No wheezing. Abdominal: General: There is no distension. Palpations: Abdomen is soft. Tenderness: There is no abdominal tenderness. There is no guarding. Musculoskeletal: General: No swelling or tenderness. Cervical back: Neck supple. Skin: General: Skin is warm and dry. Findings: No erythema or rash. Neurological: Mental Status: He is alert. Mental status is at baseline. Psychiatric: Mood and Affect: Mood normal. Recent Labs Lab 07/28/22 0703 WBC 13.5* RBC 2.51* HGB 8.3* HCT 25.1* MCV 100.0 MCH 33.1* MCHC 33.1 PLT 303 RDW 14.7* MPV 10.1 NEUC 11.61* LYMC 1.08 MONOC 0.81 EOSC 0.00 BASOC 0.00 Recent Labs Lab 07/28/22 0703 NA 137 K 4.0 CL 105 CO2 28.7 AGAP 3.3* BUN 19* CR 0.73 GLU 98 CA 7.9* CTA CHEST+ABD+PEL Result Date: 07/26/2022 IMPRESSION: 1. Air-fluid level within loculated fluid collection in the right posterior pleural cavity related to loculated hydropneumothorax, empyema or abscess versus bronchopleural fistula. Pleasecorrelate clinically. 2. Loculated pleural fluid in the posterior medial and posterolateral aspect of the right lower chest. Very small left pleural effusion. 3. Loculated pleural effusion adjacent to the right heart border or less likely loculated pericardial effusion. 4. Patchy areas of atelectasis versus infiltrate bilaterally in the lungs, greatest in the lower lobes and in the left upper lobe as noted above. Please correlate clinically for atypical pneumonia. 5. At least 3 hypodense lesions in the spleen with the largest 1.8 cm. Recommend correlation with ultrasound of the spleen for further evaluation. 6. Slight surface nodularity of the liver; please correlate clinically for possiblecirrhosis of the liver. 7. Please see the CT lumbar spine exam of 08/22/2021 regarding postoperative and other chronic findings involving the lumbar spine with chronic compression deformity of anterior L3 vertebral body. 8. Increased density in the gallbladder concerning for gallstones. Dilated common duct measuring up to 1.5 cm. Recommend right upper quadrant ultrasound exam for further evaluation. 9. Small hiatal hernia. 10. Please see above report for the other findings. This CT exam was performed using one or more of the following dose reduction techniques: automated exposure control, adjustment of the mA and/or kV according to patient size, and/or use of iterative reconstruction's technique. Referred By: PROVIDER NON-STAFF Electronically Signed By: Karine Sher MD on 21:23 AM Interpreted By: Karine Sher MD, 07/26/2022 12:56 AM XR CHEST PORTABLE Result Date: 07/26/2022 IMPRESSION: Loculated effusion on the right. Bilateral pulmonary opacifications due to atelectasis or infiltrate greatest in the right lower lung and throughout the left lung. Left effusion. 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 67-year-old male being admitted for diffuse lung disease and right lower lobe pneumonia that did not respond to antibiotics at outlying hospital. ?? Pneumonia Acute hypoxic resp failure Loculated pneural effusion CTA overnight with hydropneumothorax, loculated organized effusions Probable underlying COPD with exacerbation Hx 50 year smoking hx -blood cultures x2. -sputum culture aerobic/anaerobic, fungal culture, strep pneumo, Legionella ag. Obtain AFB smear. -Cont cefepime, vancomycin, azithromycin. --Monitor SPO2 -Pulmonology consulted for possible bronch. NPO for bronch tomorrow. -s/p CT by IR. S/p TPA. Fluid exudative. Cont to water seal. followup imaging and further manipulation of tube as needed. -ID consulted given refractory nature / Atypical nature of PNA -Sats stable -Case discussed with ICU previously -NPO after MN for bronch ??-Cultures reviewed. Sputum GNR, GPC, Yeast, not finalized -Pleural fluid NGTD Anemia/Bleeding?? - STAT CTA chest/abdomen/pelvis neg for source of bleeding. We will repeat H/H in case this is an erroneous result. Haptoglobin, LDH and smear ordered -S/p 1 unit PRBC. ?? Small pericardial effusion: -Obtain TTE to further evaluate pericardial effusion. This was reported small and could be secondary to infection and/or malignancy. No clinical hemodynamic compromise at this time. Splenic lesions Blood cultures done Rule out embolic lesions US c/w cysts. No further workup needed Hypokalemia:-replace K ?? Chronic back pain, hx back injury -Continue home meds for pain and anxiety, has chronic low back pain due to back trauma. Has chronicT3 compression fracture. ?? Monitor closely on IMC. Low threshold for ICU transfer. Will discuss with ICU team if anemia and/ or respiratory failure worsens. ?? Continue supportive care Mechanical DVT prophylaxis Discharge Disposition Unclear 35 min spent on patient, including consultation with pulmonary, and ID. >50 percent of time spent on direct patient care. Pt critically ill with high likelihood for decompensation. FLORENCIO AMAYA MD APEUTIC SPECIALIST APEUTIC SPECIALIST * Alfred Hill, PharmD, [facility] - 07/29/2022 11:04 AM CST Vancomycin Pharmacokinetic Progress Note Day 4 of therapy Ray Phillips is a 67-year-old male for which pharmacy has been consulted to dose vancomycin for Pneumonia. Loculated Pleural Effusions Other antibiotics ordered include azithromycin 500 mg IV Q24H (07/25-07/29) and cefepime 2 mg IV Q12H (07/25-) Historical vancomycin use: vancomycin 1000 mg x1 07/23/22 @2330 Allergies: Allergies Allergen Reactions ??? Motrin [Ibuprofen] Shortness of Breath ??? Nsaids Shortness of Breath and GI Upset ??? Prednisone Shortness of Breath Height: 5' 5 (1.651 m) Weight: 67.5 kg (148 lb 12.8 oz) Body mass index is 24.76 kg/m??. Temp (24 hr max): Temp Av.8 ??F (36.6 ??C) Min: 97.5 ??F (36.4 ??C) Max: 98 ??F (36.7 ??C) Today's labs and vitals: Lab Results Component Value Date/Time WBC 13.5 (H) 07/28/2022 07:03 AM WBC 21.3 (H) 07/27/2022 02:40 AM WBC 17.5 (H) 07/26/2022 02:38 AM WBC 17.6 (H) 07/25/2022 02:16 PM Lab Results Component Value Date/Time CR 0.73 07/28/2022 07:03 AM CR 0.91 07/27/2022 02:40 AM CR 0.66 (L) 07/26/2022 02:38 AM CR 0.57 (L) 07/25/2022 02:16 PM CrCl = estimated creatinine clearance is 87.8 mL/min (based on SCr of 0.73 mg/dL). Intake/Output Summary (Last 24 hours) at 07/29/2022 1104 Last data filed at 07/29/2022 0633 Gross per 24 hour Intake -- Output 20 ml Net -20 ml Pertinent Cultures: Date Drawn Site Organism Pertinent Sensitivity 07/25 BCX 2/2 NGTD Strep PNU Urine Negative 07/28 Sputum GPC GNR No pertinent past Epic positive culture history Levels: Date Time Level AUC Dose Comments 07/28 0703 7 336 1.75 gm x1 1.25 gm x2 24h 3m Assessment: Ray Phillips is a 67-year-old male who is currently receiving vancomycin. AUC goal is 400 - 600 Current AUC level is Pending Renal function is Fluctuating SCr 0.57-->0.91-->0.73 [facility] ID is consulted Plan: Antibiotic Plan: Scr improving w/ subtherapeutic level - resume scheduled dosing with 1000 mg q12h (est. auc of 478) Next level due: 07/30 w/ AM labs Pharmacy will continue to follow cultures, clinical status, and appropriateness of therapy. Thank you for the consult. Pharmacy Consult per Dr. Srinath Hill, PharmD, [facility] Phone: [phone] 07/29/2022 11:04 AM APEUTIC SPECIALIST * Patel Kelsey MD - 07/28/2022 11:00 AM CST [facility] PROGRESS NOTE ?? Attending Provider:??Florencio Amaya MD PCP:??GRACIELA LEIGH MD? Reason for Admission:?Respiratory failure (CMS/HCC) ?? Reason for Consult:??Respiratory failure, necrotizing pneumonia,??possible loculated??effusion??- empyema or abscess vs bronchopleural fistula ? ASSESSMENT/PLAN Ray Phillips??is a 67-year-old??male, with history of??chronic back pain,??50-pk year history smoking??who presented??with worsening shortness of breath over??2-3 week period[address] imaging concerning for loculated fluid collection in right posterior pleural cavity - pneumonia vs empyema or abscess vs bronchopleural fistula. Concern for malignancy as well given history of asbestos exposure, smoking history, and family history of lung cancer. requiring 8-10L nasal cannula. [facility] ID andCT surgery as consulting services as well.??Oxygenation has improved post chest tube placement. ?? [facility] Pulmonology consulted for??above. ?? Problem List:?? Acute hypoxic respiratory failure Probable COPD? Necrotizing pneumonia of right lower lobe Loculated right pleural effusion Possible??Pulmonary edema Small pericardial effusion Splenomegaly Acute blood loss anemia? Hypokalemia requiring monitoring and treatment Chronic back pain Anxiety/depression History of tobacco abuse Chronic compression fracture of L3 Lumbar spondylosis History of back trauma Pericardial effusion ?? Active workup:?? CT imaging reviewed. 07/26 - Labs reviewed, Hgb 7.6, WBC 17.5 Procalcitonin 1.83? [facility] Pulmonology Plan/ Recommendations: -??s/p Chest tube placement 07/27/22 - will follow cultures, labs - TPA/dornase per IR for loculations - Continue to wean oxygen, will need to wean to <5-6L prior to bronchoscopy. Will tentatively plan for bronchoscopy Saturday (07/30/22), NPO after midnight, please hold any DVT ppx night prior/day of. - Antibiotics per ID - currently on vanc, cefepime, azithromycin - ok to continue steroids 62.5mg QD x 5days. - Rest of care per primary team ?? Thank you for the consult. We will continue to follow.?? Patel Kelsey MD 07/28/2022 SUBJECTIVE Patient doing well post chest tube. Feels better. Oxygen levels improved. He has no fever or chills. Minimal sputum production if any. Cough improved. Review of Systems Constitutional: Negative for chills and fever. Respiratory: Positive for cough. Negative for hemoptysis, sputum production, shortness of breath and wheezing. Cardiovascular: Negative for chest pain and palpitations. Gastrointestinal: Negative for heartburn, nausea and vomiting. Genitourinary: Negative for dysuria, frequency and urgency. Skin: Negative for rash. Neurological: Negative for dizziness and headaches. Psychiatric/Behavioral: Negative for depression. OBJECTIVE Vitals: Filed Vitals: 07/27/22 2327 07/28/22 0326 07/28/22 0720 07/28/22 0813 BP: (!) 141/63 105/51 129/58 Pulse: 55 58 53 Resp: 18 20 Temp: 97.5 ??F (36.4 ??C) 97.3 ??F (36.3 ??C) 97.7 ??F (36.5 ??C) TempSrc: Oral Oral Oral SpO2: 94% 97% 98% 95% Weight: 67.5 kg (148 lb 12.8 oz) Height: Physical Exam Constitutional: General: He is not in acute distress. Appearance: Normal appearance. He is normal weight. HENT: Head: Normocephalic and atraumatic. Mouth/Throat: Mouth: Mucous membranes are moist. Eyes: General: No scleral icterus. Extraocular Movements: Extraocular movements intact. Conjunctiva/sclera: Conjunctivae normal. Pupils: Pupils are equal, round, and reactive to light. Cardiovascular: Rate and Rhythm: Normal rate and regular rhythm. Pulses: Normal pulses. Heart sounds: Normal heart sounds. No murmur heard. Pulmonary: Effort: Pulmonary effort is normal. No respiratory distress. Breath sounds: No wheezing. Comments: On 8L, breathing comfortably, right basilar rales, and decreased air entry over right lower lobe. Dullness to percussion over right base. Abdominal: General: Bowel sounds are normal. There is no distension. Palpations: Abdomen is soft. Tenderness: There is no abdominal tenderness. There is no guarding. Musculoskeletal: General: No tenderness. Skin: General: Skin is warm and dry. Coloration: Skin is not jaundiced. Neurological: General: No focal deficit present. Mental Status: He is alert and oriented to person, place, and time. Cranial Nerves: No cranial nerve deficit. Psychiatric: Mood and Affect: Mood normal. Behavior: Behavior normal. Medications: ??? azithromycin 500 mg Intravenous Q24H ??? cefepime 2 g Intravenous Q12H ??? FLUoxetine 20 mg Oral Daily ??? gabapentin 300 mg Oral BID ??? ipratropium-albuterol 3 mL Nebulization Q4H ??? lidocaine-EPINEPHrine 20 mL Intradermal Once ??? methylPREDNISolone 62.5 mg Intravenous Daily ??? traZODone 100 mg Oral Nightly at bedtime ??? vancomycin 1,000 mg Intravenous Q12H ??? vancomycin pharmacy to dose Intravenous See Admin Instructions PRN: acetaminophen, albuterol sulfate HFA, alteplase, cyclobenzaprine, fentaNYL, HYDROcodone-acetaminophen, influenza virus vaccine (QUAD), lidocaine, LORazepam, morphine, morphine, ondansetron, sodium chloride Allergies Allergen Reactions ??? Motrin [Ibuprofen] Shortness of Breath ??? Nsaids Shortness of Breath and GI Upset ??? Prednisone Shortness of Breath Intake/Output Summary (Last 24 hours) at 07/28/2022 1101 Last data filed at 07/28/2022 0400 Gross per 24 hour Intake 500 ml Output 965 ml Net -465 ml Labs: Recent Labs Lab 07/25/22 1416 07/25/22 1723 07/25/22 2056 07/26/22 0238 07/26/22 1255 07/27/22 0240 07/28/22 0703 WBC 17.6* -- -- 17.5* -- 21.3* 13.5* RBC 2.07* -- -- 2.26* -- 1.98* 2.51* HGB 7.0* 8.1* 7.5* 7.6* 7.1* 6.5* 8.3* HCT 21.0* 24.4* 23.2* 22.9* 21.5* 20.2* 25.1* MCV 101.4* -- -- 101.3* -- 102.0* 100.0 MCH 33.8* -- -- 33.6* -- 32.8* 33.1* MCHC 33.3 -- -- 33.2 -- 32.2* 33.1 PLT 260 -- -- 283 -- 347 303 RDW 13.6 -- -- 13.8 -- 14.2 14.7* NEUC 14.78* -- -- 16.80* -- 20.24* 11.61* LYMC 2.29 -- -- 0.53* -- 0.85 1.08 MONOC 0.53 -- -- 0.18 -- 0.21 0.81 EOSC 0.00 -- -- 0.00 -- 0.00 0.00 BASOC 0.00 -- -- 0.00 -- 0.00 0.00 Recent Labs Lab 07/25/22 1416 07/26/22 0238 07/27/22 0240 07/28/22 0703 NA 137 135* 138 137 K 3.4* 4.5 3.7 4.0 CL 106 105 106 105 CO2 24.7 26.8 26.0 28.7 BUN 17 15 22* 19* CR 0.57* 0.66* 0.91 0.73 GLU 85 137* -- 98 CA 7.8* 8.1* 8.2* 7.9* TP 5.3* 5.3* -- -- ALB 1.5* 1.5* -- -- TBIL 0.3 0.2 -- -- ALKP 61 60 -- -- AST 23 19 -- -- ALT 23 20 -- -- Recent Imaging: Radiology Results (Last 48 hours) 07/28/22 0043 XR CHEST PORTABLE Final result Impression: IMPRESSION: 1. Right basilar pigtail catheter remains in place. Unchanged hazy opacity at the lateral lower right lung zone likely related to loculated pleural effusion. 2. Small layering left pleural effusion with adjacent atelectasis or airspace disease at the left lung base may be slightly increased from most recent study. Subtle hazy opacities in the left mid and upper lung not significantly changed, could also relate to atelectasis or infiltrate. Referred By: PROVIDER NON-STAFF Interpreted By: Harjinder Cobb MD, 07/28/2022 1:18 AM 07/27/22 1622 XR CHEST PORTABLE Final result Impression: IMPRESSION: 1. Right-sided pigtail chest tube. 2. Bilateral pulmonary opacities. 3. Cardiomegaly. Pulmonary vascular congestion. Ordered By: RODNEY NOLASCO Interpreted By: Can Klein DO, 07/27/2022 4:42 PM 07/27/22 1313 USE ECHOCARDIOGRAM Final result 07/27/22 1120 IR MIDLINE PLACEMENT GREATER 3YR Final result Impression: Impression: Successful image guided left basilic vein inserted midline line venous catheter. Plan: 1. Left midline venous catheter okay for immediate use. 2. IR follow-up as needed. Thank you for allowing [facility] to assist in this patient's care! Ordered By: TRACY YO Interpreted By: Reji Cantrell MD, 07/27/2022 11:15 AM 07/27/[address] GD CHEST TUBE INSERT RT Final result Impression: IMPRESSION: Successful CT-guided right thoracostomy tube placement as described. The stopcock will initially be left in the closed position for fibrinolytic 4 hour dwell time. The tube will then be placed to low wall suction. Output and serial radiographs will be monitored to determine further management. Ordered By: FLORENCIO AMAYA Interpreted By: Raul Osuna MD, 07/27/2022 12:05 PM Cosigned by Patti Pineda MD at 07/28/2022 1:59 PM THERAPEUTIC SPECIALIST APEUTIC SPECIALIST APEUTIC SPECIALIST Associated attestation - Patti Pineda MD - 07/28/2022 1:59 PM THERAPEUTIC SPECIALIST Kenisha Brizuela MD, I rounded with RT, nurses, and pulmonary team, I personally saw and examined thispatient and discussed the case with the residents. I have reviewed the resident note and agree withthe content and plan as written unless otherwise modified or corrected by me. I have reviewed the patients past medical, family, and social history, medication record and pertinent laboratory and radiology reports. I was present at bedside for the management. He has smoking history for 50 years, and asbestos exposure for 10 years back in 1996, presented with Acute respiratory failure, shortness of breath over 2-[address] imaging concerning for loculated fluid collection in right posterior pleural cavity, necrotizingpneumonia Concern for malignancy as well given history of asbestos exposure, smoking history, last CT was in 2012 for right shoulder, family history of lung cancer. He had chest tube placed with tPA per IR, sample sent to cultures, cytology, drained around 200 cc,WBC is down to 13 from 21, overall much better Currently requiring 2 -3 L/m down from 8-10 L nasal cannula, was supposed to have Bronchoscopy today but no staffing per RT/ Paulina till Saturday. Seen by [facility] on broad coverage antibiotics, fungal serology COPD exacerbation on BD nebs, weaning down Solumedrol, he will need bronchoscopy BAL to RLL, if gets worse will need to transfer to ICU, discussed with ID and hospitalist GI DVT prophylaxis and rest of medical management per PCP. Patient seen and evaluated frequently during the course of the day, discussed current laboratory and radiographic data as well as plan of care, patient in agreement with above. * Florencio Amaya MD - 07/28/2022 10:23 AM CST Ray Phillips is a 67-year-old male patient admitted with refractory PNA, anemia, hydropneumothorax,loculated effusions Subjective Pt seen and examined. Breathing improved Feels better after CT placement Pt denies BRB, Melena, HE Bronch moved to saturday Principal Problem: Respiratory failure (CMS/HCC) SNOMED CT(R): RESPIRATORY FAILURE Past Medical History: Diagnosis Date ??? Chronic back pain Current Facility-Administered Medications Medication Dose Route Frequency Provider Last Rate Last Admin ??? acetaminophen (TYLENOL) tablet 650 mg 650 mg Oral Q4H PRN Tracy Yo MD ??? albuterol sulfate HFA 108 (90 Base) MCG/ACT inhaler 2 puff 2 puff Inhalation Q4H PRN Tracy Yo MD ??? alteplase (CATHFLO) injection Code/Trauma/Sedation Med Raul Osuna MD 2 mg at 07/27/22 1034 ??? azithromycin (ZITHROMAX) 500 mg in NS 250 mL IVPB 500 mg Intravenous Q24H Tracy Yo MD Stopped at 07/27/22 1840 ??? ceFEPIme (MAXIPIME) 2 g in sodium chloride (PF) 0.9 % 10 mL IV 2 g Intravenous Q12H Tracy Yo MD 2 g at 07/28/22 0629 ??? cyclobenzaprine (FLEXERIL) tablet 10 mg 10 mg Oral TID PRN Tracy Yo MD 10 mg at109/25/21 0828 ??? fentaNYL (SUBLIMAZE) injection Code/Trauma/Sedation Med Raul Osuna MD 50 mcg at 07/27/22 1014 ??? FLUoxetine (PROzac) capsule 20 mg 20 mg Oral Daily Tracy Yo MD 20 mg at 07/28/22 0752 ??? gabapentin (NEURONTIN) capsule 300 mg 300 mg Oral BID Tracy Yo MD 300 mg at 07/28/22 0751 ??? HYDROcodone-acetaminophen (NORCO) 10-325 MG tablet 1 tablet 1 tablet Oral Q6H PRN Tracy Yo MD 1 tablet at 07/28/22 0631 ??? influenza virus vaccine (QUAD) injection 0.5 mL 0.5 mL Intramuscular Once PRN Florencio Amaya MD ??? ipratropium-albuterol (DUONEB) 0.5-2.5 (3) MG/3ML nebulizer solution 3 mL 3 mL Nebulization [id number] Stevan Yo MD 3 mL at 07/28/22 0811 ??? lidocaine (XYLOCAINE) 1 % injection SOLN Code/Trauma/Sedation Med Raul Osuna MD 8 mL at 07/27/22 1016 ??? lidocaine-EPINEPHrine 2 %-1:[id number] injection 20 mL 20 mL Intradermal Once Nery Patrick MD ??? LORazepam (ATIVAN) tablet 1 mg 1 mg Oral BID PRN Tracy Yo MD 1 mg at 07/25/22 1659 ??? methylPREDNISolone sodium succinate (SOLU-Medrol) injection 62.5 mg 62.5 mg Intravenous Daily Patel Kelsey MD 62.5 mg at 07/28/22 0628 ??? morphine (MSIR) tablet 30 mg 30 mg Oral Q8H PRN Tracy Yo MD 30 mg at 07/27/22 2357 ??? morphine injection 1 mg 1 mg Intravenous Q6H PRN Florencio Amaya MD 1 mg at 07/27/22 1519 ??? ondansetron (ZOFRAN) injection 4 mg 4 mg Intravenous Q8H PRN Tracy Yo MD ??? sodium chloride (OCEAN) 0.65 % nasal spray 1 spray 1 spray Each Nostril PRN Tracy Yo MD 1 spray at 07/25/22 2305 ??? traZODone (DESYREL) tablet 100 mg 100 mg Oral Nightly at bedtime Tracy Yo MD 100 mg at 07/27/22 203 ??? vancomycin 1000 mg in NS 250 mL IVPB 1,000 mg Intravenous Q12H Florencio Amaya MD ??? vancomycin pharmacy to dose placeholder Intravenous See Admin Instructions Tracy Yo MD ROS 14 pt ROS ow neg Vitals: 07/28/22 0813 BP: Pulse: Resp: Temp: SpO2: 95% Physical Exam Physical Exam Constitutional: General: He is not in acute distress. Appearance: He is ill-appearing. He is not toxic-appearing or diaphoretic. HENT: Head: Normocephalic and atraumatic. Eyes: General: No scleral icterus. Cardiovascular: Rate and Rhythm: Normal rate and regular rhythm. Heart sounds: No murmur heard. No friction rub. No gallop. Pulmonary: Effort: Pulmonary effort is normal. No respiratory distress. Breath sounds: No stridor. Rales present bilat. R>L. No wheezing. Abdominal: General: There is no distension. Palpations: Abdomen is soft. Tenderness: There is no abdominal tenderness. There is no guarding. Musculoskeletal: General: No swelling or tenderness. Cervical back: Neck supple. Skin: General: Skin is warm and dry. Findings: No erythema or rash. Neurological: Mental Status: He is alert. Mental status is at baseline. Psychiatric: Mood and Affect: Mood normal. Recent Labs Lab 07/28/22 0703 WBC 13.5* RBC 2.51* HGB 8.3* HCT 25.1* MCV 100.0 MCH 33.1* MCHC 33.1 PLT 303 RDW 14.7* MPV 10.1 NEUC 11.61* LYMC 1.08 MONOC 0.81 EOSC 0.00 BASOC 0.00 Recent Labs Lab 07/28/22 0703 NA 137 K 4.0 CL 105 CO2 28.7 AGAP 3.3* BUN 19* CR 0.73 GLU 98 CA 7.9* CTA CHEST+ABD+PEL Result Date: 07/26/2022 IMPRESSION: 1. Air-fluid level within loculated fluid collection in the right posterior pleural cavity related to loculated hydropneumothorax, empyema or abscess versus bronchopleural fistula. Pleasecorrelate clinically. 2. Loculated pleural fluid in the posterior medial and posterolateral aspect of the right lower chest. Very small left pleural effusion. 3. Loculated pleural effusion adjacent to the right heart border or less likely loculated pericardial effusion. 4. Patchy areas of atelectasis versus infiltrate bilaterally in the lungs, greatest in the lower lobes and in the left upper lobe as noted above. Please correlate clinically for atypical pneumonia. 5. At least 3 hypodense lesions in the spleen with the largest 1.8 cm. Recommend correlation with ultrasound of the spleen for further evaluation. 6. Slight surface nodularity of the liver; please correlate clinically for possiblecirrhosis of the liver. 7. Please see the CT lumbar spine exam of 08/22/2021 regarding postoperative and other chronic findings involving the lumbar spine with chronic compression deformity of anterior L3 vertebral body. 8. Increased density in the gallbladder concerning for gallstones. Dilated common duct measuring up to 1.5 cm. Recommend right upper quadrant ultrasound exam for further evaluation. 9. Small hiatal hernia. 10. Please see above report for the other findings. This CT exam was performed using one or more of the following dose reduction techniques: automated exposure control, adjustment of the mA and/or kV according to patient size, and/or use of iterative reconstruction's technique. Referred By: PROVIDER NON-STAFF Electronically Signed By: Karine Sher MD on 21:23 AM Interpreted By: Karine Sher MD, 07/26/2022 12:56 AM XR CHEST PORTABLE Result Date: 07/26/2022 IMPRESSION: Loculated effusion on the right. Bilateral pulmonary opacifications due to atelectasis or infiltrate greatest in the right lower lung and throughout the left lung. Left effusion. 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 67-year-old male being admitted for diffuse lung disease and right lower lobe pneumonia that did not respond to antibiotics at outlying hospital. ?? Pneumonia Acute hypoxic resp failure Loculated pneural effusion CTA overnight with hydropneumothorax, loculated organized effusions Probable underlying COPD with exacerbation Hx 50 year smoking hx -blood cultures x2. -sputum culture aerobic/anaerobic, fungal culture, strep pneumo, Legionella ag. Obtain AFB smear. -Cont cefepime, vancomycin, azithromycin. --Monitor SPO2 -Pulmonology consulted for possible bronch. NPO for bronch tomorrow. -s/p CT by IR. S/p TPA. Fluid exudative. Cont to water seal. followup imaging and further manipulation of tube as needed. -ID consulted given refractory nature / Atypical nature of PNA -Sats stable -Case discussed with ICU previously ?? Anemia/Bleeding?? - STAT CTA chest/abdomen/pelvis neg for source of bleeding. We will repeat H/H in case this is an erroneous result. Haptoglobin, LDH and smear ordered -S/p 1 unit PRBC. ?? Small pericardial effusion: -Obtain TTE to further evaluate pericardial effusion. This was reported small and could be secondary to infection and/or malignancy. No clinical hemodynamic compromise at this time. Splenic lesions Blood cultures done Rule out embolic lesions US Hypokalemia:-replace K ?? Chronic back pain, hx back injury -Continue home meds for pain and anxiety, has chronic low back pain due to back trauma. Has chronicT3 compression fracture. ?? Monitor closely on IMC. Low threshold for ICU transfer. Will discuss with ICU team if anemia and/ or respiratory failure worsens. ?? Continue supportive care Mechanical DVT prophylaxis Discharge Disposition Unclear 42 min spent on patient, including consultation with pulmonary, and ID. >50 percent of time spent on direct patient care. Pt critically ill with high likelihood for decompensation. FLORENCIO AMAYA MD APEUTIC SPECIALIST * Joann HawthorneD, [facility] - 07/28/2022 10:12 AM CST Vancomycin Pharmacokinetic Progress Note Day 3 of therapy Ray Phillips is a 67-year-old male for which pharmacy has been consulted to dose vancomycin for Pneumonia. Loculated Pleural Effusions Other antibiotics ordered include azithromycin 500 mg IV Q24H (07/25-07/29) and cefepime 2 mg IV Q12H (07/25-) Historical vancomycin use: vancomycin 1000 mg x1 07/23/22 @2330 Allergies: Allergies Allergen Reactions ??? Motrin [Ibuprofen] Shortness of Breath ??? Nsaids Shortness of Breath and GI Upset ??? Prednisone Shortness of Breath Height: 5' 5 (1.651 m) Weight: 67.5 kg (148 lb 12.8 oz) Body mass index is 24.76 kg/m??. Temp (24 hr max): Temp Av.5 ??F (36.4 ??C) Min: 97.3 ??F (36.3 ??C) Max: 97.7 ??F (36.5 ??C) Today's labs and vitals: Lab Results Component Value Date/Time WBC 13.5 (H) 07/28/2022 07:03 AM WBC 21.3 (H) 07/27/2022 02:40 AM WBC 17.5 (H) 07/26/2022 02:38 AM WBC 17.6 (H) 07/25/2022 02:16 PM Lab Results Component Value Date/Time CR 0.73 07/28/2022 07:03 AM CR 0.91 07/27/2022 02:40 AM CR 0.66 (L) 07/26/2022 02:38 AM CR 0.57 (L) 07/25/2022 02:16 PM CrCl = estimated creatinine clearance is 87.8 mL/min (based on SCr of 0.73 mg/dL). Intake/Output Summary (Last 24 hours) at 07/28/2022 1012 Last data filed at 07/28/2022 0400 Gross per 24 hour Intake 500 ml Output 965 ml Net -465 ml Pertinent Cultures: Date Drawn Site Organism Pertinent Sensitivity 07/25 BCX 2/2 NGTD MRSA PCR Sent Strep PNU Urine Negative No pertinent past Epic positive culture history Levels: Date Time Level AUC Dose Comments 07/28 0703 7 336 1.75 gm x1 1.25 gm x2 24h 3m Assessment: Ray Phillips is a 67-year-old male who is currently receiving vancomycin. AUC goal is 400 - 600 Current AUC level is Pending Renal function is Fluctuating SCr 0.57-->0.91-->0.73 [facility] ID is consulted Plan: Antibiotic Plan: Scr improving w/ subtherapeutic level - resume scheduled dosing with 1000 mg q12h (est. auc of 478) Next level due: 07/30 w/ AM labs Pharmacy will continue to follow cultures, clinical status, and appropriateness of therapy. Thank you for the consult. Pharmacy Consult per Dr. Srinath Hill, PharmD, [facility] Phone: [phone] 07/28/2022 10:12 AM APEUTIC SPECIALIST * Florencio Amaya MD - 07/27/2022 12:01 PM CST Ray Phillips is a 67-year-old male patient admitted with refractory PNA, anemia, hydropneumothorax,loculated effusions Subjective Pt seen and examined. Breathing hard but stable Feels better after CT placement Pt denies BRB, Melena, HE Appears comfortable on 10L high flow Principal Problem: Respiratory failure (CMS/HCC) SNOMED CT(R): RESPIRATORY FAILURE Past Medical History: Diagnosis Date ??? Chronic back pain Current Facility-Administered Medications Medication Dose Route Frequency Provider Last Rate Last Admin ??? acetaminophen (TYLENOL) tablet 650 mg 650 mg Oral Q4H PRN Tracy Yo MD ??? albuterol sulfate HFA 108 (90 Base) MCG/ACT inhaler 2 puff 2 puff Inhalation Q4H PRN Tracy Yo MD ??? azithromycin (ZITHROMAX) 500 mg in NS 250 mL IVPB 500 mg Intravenous Q24H Tracy Yo MD Stopped at 07/26/22 2135 ??? ceFEPIme (MAXIPIME) 2 g in sodium chloride (PF) 0.9 % 10 mL IV 2 g Intravenous Q12H Tracy Yo MD 2 g at 07/27/22 0658 ??? cyclobenzaprine (FLEXERIL) tablet 10 mg 10 mg Oral TID PRN Tracy Yo MD 10 mg at109/25/21 0828 ??? fentaNYL (SUBLIMAZE) injection Code/Trauma/Sedation Thomas Osuna MD 50 mcg at 07/27/22 1014 ??? FLUoxetine (PROzac) capsule 20 mg 20 mg Oral Daily Tracy Yo MD 20 mg at 07/26/22 0826 ??? gabapentin (NEURONTIN) capsule 300 mg 300 mg Oral BID Tracy Yo MD 300 mg at 07/26/22 2033 ??? HYDROcodone-acetaminophen (NORCO) 10-325 MG tablet 1 tablet 1 tablet Oral Q6H PRN Tracy Yo MD 1 tablet at 07/26/22 1521 ??? influenza virus vaccine (QUAD) injection 0.5 mL 0.5 mL Intramuscular Once PRN Florencio Amaya MD ??? ipratropium-albuterol (DUONEB) 0.5-2.5 (3) MG/3ML nebulizer solution 3 mL 3 mL Nebulization [id number] Stevan Yo MD 3 mL at 07/27/22 1142 ??? lidocaine (XYLOCAINE) 1 % injection SOLN Code/Trauma/Sedation Med Raul Osuna MD 8 mL at 07/27/22 1016 ??? lidocaine-EPINEPHrine 2 %-1:745157 injection 20 mL 20 mL Intradermal Once Nery Patrick MD ??? LORazepam (ATIVAN) tablet 1 mg 1 mg Oral BID PRN Tracy Yo MD 1 mg at 07/25/22 1659 ??? methylPREDNISolone sodium succinate (SOLU-Medrol) injection 62.5 mg 62.5 mg Intravenous Daily Patel Kelsye MD 62.5 mg at 07/27/22 0658 ??? morphine (MSIR) tablet 30 mg 30 mg Oral Q8H PRN Tracy Yo MD 30 mg at 07/26/22 2200 ??? morphine injection 1 mg 1 mg Intravenous Q6H PRN Florencio Amaya MD 1 mg at 07/27/22 0855 ??? ondansetron (ZOFRAN) injection 4 mg 4 mg Intravenous Q8H PRN Tracy Yo MD ??? sodium chloride (OCEAN) 0.65 % nasal spray 1 spray 1 spray Each Nostril PRN Tracy Yo MD 1 spray at 07/25/22 2305 ??? sodium chloride 0.9% infusion 250 mL Intravenous Continuous Ann Hammond NP 10 mL/hr at 07/27/22 0445 250 mL at 07/27/22 0445 ??? traZODone (DESYREL) tablet 100 mg 100 mg Oral Nightly at bedtime Tracy Yo MD 100 mg at 07/26/222033 ??? vancomycin pharmacy to dose placeholder Intravenous See Admin Instructions Tracy Yo MD ROS 14 pt ROS ow neg Vitals: 07/27/22 1144 BP: Pulse: Resp: Temp: SpO2: 97% Physical Exam Physical Exam Constitutional: General: He is not in acute distress. Appearance: He is ill-appearing. He is not toxic-appearing or diaphoretic. HENT: Head: Normocephalic and atraumatic. Eyes: General: No scleral icterus. Cardiovascular: Rate and Rhythm: Normal rate and regular rhythm. Heart sounds: No murmur heard. No friction rub. No gallop. Pulmonary: Effort: Pulmonary effort is normal. No respiratory distress. Breath sounds: No stridor. Rales present bilat. R>L. No wheezing. Abdominal: General: There is no distension. Palpations: Abdomen is soft. Tenderness: There is no abdominal tenderness. There is no guarding. Musculoskeletal: General: No swelling or tenderness. Cervical back: Neck supple. Skin: General: Skin is warm and dry. Findings: No erythema or rash. Neurological: Mental Status: He is alert. Mental status is at baseline. Psychiatric: Mood and Affect: Mood normal. Recent Labs Lab 07/27/22 0240 WBC 21.3* RBC 1.98* HGB 6.5* HCT 20.2* MCV 102.0* MCH 32.8* MCHC 32.2* PLT 347 RDW 14.2 MPV 10.4 NEUC 20.24* LYMC 0.85 MONOC 0.21 EOSC 0.00 BASOC 0.00 Recent Labs Lab 07/26/22 0238 07/27/22 0240 NA 135* 138 K 4.5 3.7 CL 105 106 CO2 26.8 26.0 AGAP 3.2* 6.0 BUN 15 22* CR 0.66* 0.91 GLU 137* -- CA 8.1* 8.2* CTA CHEST+ABD+PEL Result Date: 07/26/2022 IMPRESSION: 1. Air-fluid level within loculated fluid collection in the right posterior pleural cavity related to loculated hydropneumothorax, empyema or abscess versus bronchopleural fistula. Pleasecorrelate clinically. 2. Loculated pleural fluid in the posterior medial and posterolateral aspect of the right lower chest. Very small left pleural effusion. 3. Loculated pleural effusion adjacent to the right heart border or less likely loculated pericardial effusion. 4. Patchy areas of atelectasis versus infiltrate bilaterally in the lungs, greatest in the lower lobes and in the left upper lobe as noted above. Please correlate clinically for atypical pneumonia. 5. At least 3 hypodense lesions in the spleen with the largest 1.8 cm. Recommend correlation with ultrasound of the spleen for further evaluation. 6. Slight surface nodularity of the liver; please correlate clinically for possiblecirrhosis of the liver. 7. Please see the CT lumbar spine exam of 08/22/2021 regarding postoperative and other chronic findings involving the lumbar spine with chronic compression deformity of anterior L3 vertebral body. 8. Increased density in the gallbladder concerning for gallstones. Dilated common duct measuring up to 1.5 cm. Recommend right upper quadrant ultrasound exam for further evaluation. 9. Small hiatal hernia. 10. Please see above report for the other findings. This CT exam was performed using one or more of the following dose reduction techniques: automated exposure control, adjustment of the mA and/or kV according to patient size, and/or use of iterative reconstruction's technique. Referred By: PROVIDER NON-STAFF Electronically Signed By: Karine Sher MD on 21:23 AM Interpreted By: Karine Sher MD, 07/26/2022 12:56 AM XR CHEST PORTABLE Result Date: 07/26/2022 IMPRESSION: Loculated effusion on the right. Bilateral pulmonary opacifications due to atelectasis or infiltrate greatest in the right lower lung and throughout the left lung. Left effusion. 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 67-year-old male being admitted for diffuse lung disease and right lower lobe pneumonia that did not respond to antibiotics at outlying hospital. ?? Pneumonia Acute hypoxic resp failure Loculated pneural effusion CTA overnight with hydropneumothorax, loculated organized effusions Probable underlying COPD with exacerbation Hx 50 year smoking hx -blood cultures x2. -sputum culture aerobic/anaerobic, fungal culture, strep pneumo, Legionella ag. Obtain AFB smear. -Cont cefepime, vancomycin, azithromycin. --Monitor SPO2 -Pulmonology consulted for possible bronch. NPO for bronch tomorrow. -s/p CT by IR today. Cont to water seal. -ID consulted given refractory nature / Atypical nature of PNA -Sats stable -Case discussed with ICU previously ?? Anemia/Bleeding?? - STAT CTA chest/abdomen/pelvis neg for source of bleeding. We will repeat H/H in case this is an erroneous result. Haptoglobin, LDH and smear ordered -S/p 1 unit PRBC. ?? Small pericardial effusion: -Obtain TTE to further evaluate pericardial effusion. This was reported small and could be secondary to infection and/or malignancy. No clinical hemodynamic compromise at this time. Splenic lesions Blood cultures done Rule out embolic lesions US Hypokalemia:-replace K ?? Chronic back pain, hx back injury -Continue home meds for pain and anxiety, has chronic low back pain due to back trauma. Has chronicT3 compression fracture. ?? Monitor closely on IMC. Low threshold for ICU transfer. Will discuss with ICU team if anemia and/ or respiratory failure worsens. ?? Continue supportive care Mechanical DVT prophylaxis Discharge Disposition Unclear 42 min spent on patient, including consultation with pulmonary, and ID. >50 percent of time spent on direct patient care. Pt critically ill with high likelihood for decompensation. FLORENCIO AMAYA MD APEUTIC SPECIALIST APEUTIC SPECIALIST * Patel Kelsey MD - 07/27/2022 11:41 AM CST [facility] PROGRESS NOTE ?? Attending Provider: Florencio Amaya MD PCP: GRACIELA LEIGH MD ?? Reason for Admission: Respiratory failure (CMS/HCC) ?? Reason for Consult: Respiratory failure, necrotizing pneumonia, possible loculated effusion - empyema or abscess vs bronchopleural fistula ? ASSESSMENT/PLAN Ray Phillips is a 67-year-old male, with history of chronic back pain, 50-pk year history smoking who presented with worsening shortness of breath over 2-3 week period. Present[address] with CT imaging concerning for loculated fluid collection in right posterior pleural cavity - pneumonia vs empyema or abscess vs bronchopleural fistula. Concern for malignancy as well given history of asbestos exposure, smoking history, and family history of lung cancer. Currently requiring 8-10L nasal cannula. [facility] ID and CT surgery as consulting services as well. ?? [facility] Pulmonology consulted for above. ?? Problem List: Acute hypoxic respiratory failure Probable COPD? Necrotizing pneumonia of right lower lobe Loculated right pleural effusion Possible??Pulmonary edema Small pericardial effusion Splenomegaly Acute blood loss anemia? Hypokalemia requiring monitoring and treatment Chronic back pain Anxiety/depression History of tobacco abuse Chronic compression fracture of L3 Lumbar spondylosis History of back trauma Pericardial effusion ?? Active workup: CT imaging reviewed. 07/26 - Labs reviewed, Hgb 7.6, WBC 17.5 Procalcitonin 1.83?? [facility] Pulmonology Plan/ Recommendations: - s/p Chest tube placement 07/27/22 - will follow cultures, labs - Continue to wean oxygen, will need to wean to <5-6L prior to bronchoscopy. Will tentatively plan for bronchoscopy Saturday (07/28/22), NPO after midnight, please hold DVT ppx night prior/day of. - Antibiotics per ID - currently on vanc, cefepime, azithromycin - ok to continue steroids 62.5mg QD - Rest of care per primary team ?? Thank you for the consult. We will continue to follow. Patel Kelsey MD 07/27/2022 SUBJECTIVE Doing well this morning. Had some suspected apnea episodes yesterday afternoon/evening for which oxygen increased again. Looks comfortable on 8-9L today satting 98%. He has no fever or chills today. Minimal sputum production. No acute complaints otherwise. Review of Systems Constitutional: Negative for chills and fever. Respiratory: Positive for cough, sputum production and shortness of breath. Negative for hemoptysisand wheezing. Cardiovascular: Negative for chest pain and palpitations. Gastrointestinal: Negative for heartburn, nausea and vomiting. Genitourinary: Negative for dysuria, frequency and urgency. Skin: Negative for rash. Neurological: Negative for dizziness and headaches. Psychiatric/Behavioral: Negative for depression. OBJECTIVE Vitals: Filed Vitals: 07/27/22 1024 07/27/22 1029 07/27/22 1034 07/27/22 1035 BP: 132/76 (!) 143/86 132/80 138/81 Pulse: 65 63 66 65 Resp: 17 18 19 19 Temp: TempSrc: SpO2: 98% 99% 98% 98% Weight: Height: Physical Exam Constitutional: General: He is not in acute distress. Appearance: Normal appearance. He is normal weight. HENT: Head: Normocephalic and atraumatic. Mouth/Throat: Mouth: Mucous membranes are moist. Eyes: General: No scleral icterus. Extraocular Movements: Extraocular movements intact. Conjunctiva/sclera: Conjunctivae normal. Pupils: Pupils are equal, round, and reactive to light. Cardiovascular: Rate and Rhythm: Normal rate and regular rhythm. Pulses: Normal pulses. Heart sounds: Normal heart sounds. No murmur heard. Pulmonary: Effort: Pulmonary effort is normal. No respiratory distress. Breath sounds: No wheezing. Comments: On 8L, breathing comfortably, right basilar rales, and decreased air entry over right lower lobe. Dullness to percussion over right base. Abdominal: General: Bowel sounds are normal. There is no distension. Palpations: Abdomen is soft. Tenderness: There is no abdominal tenderness. There is no guarding. Musculoskeletal: General: No tenderness. Skin: General: Skin is warm and dry. Coloration: Skin is not jaundiced. Neurological: General: No focal deficit present. Mental Status: He is alert and oriented to person, place, and time. Cranial Nerves: No cranial nerve deficit. Psychiatric: Mood and Affect: Mood normal. Behavior: Behavior normal. Medications: ??? azithromycin 500 mg Intravenous Q24H ??? cefepime 2 g Intravenous Q12H ??? FLUoxetine 20 mg Oral Daily ??? gabapentin 300 mg Oral BID ??? ipratropium-albuterol 3 mL Nebulization Q4H ??? lidocaine-EPINEPHrine 20 mL Intradermal Once ??? methylPREDNISolone 62.5 mg Intravenous Daily ??? traZODone 100 mg Oral Nightly at bedtime ??? vancomycin pharmacy to dose Intravenous See Admin Instructions ??? sodium chloride 250 mL (07/27/22 6521) PRN: acetaminophen, albuterol sulfate HFA, cyclobenzaprine, fentaNYL, HYDROcodone- acetaminophen, influenza virus vaccine (QUAD), lidocaine, LORazepam, morphine, morphine, ondansetron, sodium chloride Allergies Allergen Reactions ??? Motrin [Ibuprofen] Shortness of Breath ??? Nsaids Shortness of Breath and GI Upset ??? Prednisone Shortness of Breath Intake/Output Summary (Last 24 hours) at 07/27/2022 1141 Last data filed at 07/27/2022 0747 Gross per 24 hour Intake 292.5 ml Output 600 ml Net -307.5 ml Labs: Recent Labs Lab 07/25/22 1416 07/25/22 1723 07/25/22 2056 07/26/22 0238 07/26/22 1255 07/27/22 0240 WBC 17.6* -- -- 17.5* -- 21.3* RBC 2.07* -- -- 2.26* -- 1.98* HGB 7.0* 8.1* 7.5* 7.6* 7.1* 6.5* HCT 21.0* 24.4* 23.2* 22.9* 21.5* 20.2* MCV 101.4* -- -- 101.3* -- 102.0* MCH 33.8* -- -- 33.6* -- 32.8* MCHC 33.3 -- -- 33.2 -- 32.2* PLT 260 -- -- 283 -- 347 RDW 13.6 -- -- 13.8 -- 14.2 NEUC 14.78* -- -- 16.80* -- 20.24* [facility] 2.29 -- -- 0.53* -- 0.85 MONOC 0.53 -- -- 0.18 -- 0.21 EOSC 0.00 -- -- 0.00 -- 0.00 BASOC 0.00 -- -- 0.00 -- 0.00 Recent Labs Lab 07/25/22 1416 07/26/22 0238 07/27/22 0240 NA 137 135* 138 K 3.4* 4.5 3.7 CL 106 105 106 CO2 24.7 26.8 26.0 BUN 17 15 22* CR 0.57* 0.66* 0.91 GLU 85 137* -- CA 7.8* 8.1* 8.2* TP 5.3* 5.3* -- ALB 1.5* 1.5* -- TBIL 0.3 0.2 -- ALKP 61 60 -- AST 23 19 -- ALT 23 20 -- Recent Imaging: Radiology Results (Last 48 hours) 07/27/22 1120 IR MIDLINE PLACEMENT GREATER 3YR Final result Impression: Impression: Successful image guided left basilic vein inserted midline line venous catheter. Plan: 1. Left midline venous catheter okay for immediate use. 2. IR follow-up as needed. Thank you for allowing [facility] to assist in this patient's care! Ordered By: TRACY YO Interpreted By: Reji Cantrell MD, 07/27/2022 11:15 AM 07/26/22 0655 XR CHEST PORTABLE Final result Impression: IMPRESSION: Loculated effusion on the right. Bilateral pulmonary opacifications due to atelectasis or infiltrate greatest in the right lower lung and throughout the left lung. Left effusion. Referred By: PROVIDER NON-STAFF Interpreted By: Rudy Montaño MD, 07/26/2022 7:27 AM 07/26/22 0032 CTA CHEST+ABD+PEL Final result Impression: IMPRESSION: 1. Air-fluid level within loculated fluid collection in the right posterior pleural cavity related to loculated hydropneumothorax, empyema or abscess versus bronchopleural fistula. Please correlate clinically. 2. Loculated pleural fluid in the posterior medial and posterolateral aspect of the right lower chest. Very small left pleural effusion. 3. Loculated pleural effusion adjacent to the right heart border or less likely loculated pericardial effusion. 4. Patchy areas of atelectasis versus infiltrate bilaterally in the lungs, greatest in the lower lobes and in the left upper lobe as noted above. Please correlate clinically for atypical pneumonia. 5. At least 3 hypodense lesions in the spleen with the largest 1.8 cm. Recommend correlation with ultrasound of the spleen for further evaluation. 6. Slight surface nodularity of the liver; please correlate clinically for possible cirrhosis of the liver. 7. Please see the CT lumbar spine exam of 08/22/2021 regarding postoperative and other chronic findings involving the lumbar spine with chronic compression deformity of anterior L3 vertebral body. 8. Increased density in the gallbladder concerning for gallstones. Dilated common duct measuring up to 1.5 cm. Recommend right upper quadrant ultrasound exam for further evaluation. 9. Small hiatal hernia. 10. Please see above report for the other findings. This CT exam was performed using one or more of the following dose reduction techniques: automated exposure control, adjustment of the mA and/or kV according to patient size, and/or use of iterative reconstruction's technique. Referred By: PROVIDER NON-STAFF Interpreted By: Karine Sher MD, 07/26/2022 12:56 AM Cosigned by Patti Pineda MD at 07/27/2022 3:23 PM THERAPEUTIC SPECIALIST APEUTIC SPECIALIST APEUTIC SPECIALIST Associated attestation - Patti Pineda MD - 07/27/2022 3:23 PM THERAPEUTIC SPECIALIST IKenisha MD, I rounded with RT, nurses, and pulmonary team, I personally saw and examined thispatient and discussed the case with the residents. I have reviewed the resident note and agree withthe content and plan as written unless otherwise modified or corrected by me. I have reviewed the patients past medical, family, and social history, medication record and pertinent laboratory and radiology reports. I was present at bedside for the management. He has smoking history for 50 years, and asbestos exposure for 10 years back in 1996, presented with Acute respiratory failure, shortness of breath over 2-[address] imaging concerning for loculated fluid collection in right posterior pleural cavity, necrotizingpneumonia Concern for malignancy as well given history of asbestos exposure, smoking history, last CT was in 2012 for right shoulder, family history of lung cancer. He had chest tube placed today, with tPA per IR, sample sent to cultures, cytology, Currently requiring 6-7 L/m down from 8-10 L nasal cannula, was supposed to have Bronchoscopy tomorrow but no staffing per RT/ Paulina till Saturday. Seen by DESTINI ID on broad coverage antibiotics, fungal serology COPD exacerbation on BD nebs, weaning down Solumedrol, he will need bronchoscopy BAL to RLL, if gets worse will need to transfer to ICU, discussed with ID and hospitalist GI DVT prophylaxis and rest of medical management per PCP. Patient seen and evaluated frequently during the course of the day, discussed current laboratory and radiographic data as well as plan of care, patient in agreement with above. Total time care 35 min+ * Rodney Nolasco MD - 07/27/2022 11:05 AM CST Interventional Radiology Procedure Note Pre Procedure Diagnosis: loculated right pleural effusion and right hydropneumothorax Post Procedure Diagnosis: same Procedure: CT guided right chest tube placement Interventional Radiologist: Dr. Raul Osuna Combine Inspector: RODNEY NOLASCO MD Anesthesia: IV conscious moderate sedation, local - 1% lidocaine Technique / Findings: CT guided placement of right pleural drainage catheter without difficulty. Turbid sanguinous fluid aspirated. tPA was administered via chest tube. Tube clamped and attached to Pleur Evac. Drains: 12 Fr non locking pigtail drain Complications: none Estimated Blood Loss: nil Specimens removed: 60 mL turbid sanguinous fluid aspirated. Specimen sent for labs. Condition: stable Plan: Will leave tube clamped for 4 hours (until 3 PM) due to intrapleural tPA administration. After which tube will be unclamped to low wall suction and a chest radiograph will be obtained. RODNEY NOLASCO MD 07/27/2022 Cosigned by Raul Osuna MD at 07/27/2022 1:54 PM THERAPEUTIC SPECIALIST APEUTIC SPECIALIST APEUTIC SPECIALIST APEUTIC SPECIALIST Associated attestation - Raul Osuna MD - 07/27/2022 1:54 PM THERAPEUTIC SPECIALIST I was present during all critical and santos portions of the procedure(s) and immediately available [facility] services the entire duration. See PA or resident note for details. * Rodney Nolasco MD - 07/27/2022 11:04 AM CST Interventional Radiology Pre Procedure Note Planned Procedure: right chest tube placement Informed Consent Discussion: Potential benefits, risks, and side effects of the patient's procedure; the likelihood of the patient achieving his or her goals; and any potential problems that might occur during recuperation were discussed with the patient. Reasonable alternatives to the patient's proposed procedure/surgery including benefits, risks, and side effects related to the alternatives andthe risks related to not receiving the proposed care were also discussed with the patient. Questions were answered and the patient verbalized understanding and desires to proceed. RODNEY NOLASCO MD 07/27/2022 APEUTIC SPECIALIST * Angela Dawkins RN - 07/27/2022 9:40 AM CSTSummary: D/C plans IDBR done with Dr Beatrice HARRIS MD to discuss POC/D/C plans. See notes below. 07/27/22 0940 Interdisciplinary Group Conference Team Members Present Physician;Case/Care management Barriers to Discharge Barriers Not Medically ready Not Medically ready follow up Pt has necrotizing Pneumonia, chest tube today. May need Bronchoscopy. PT/OT to see pt. CM following for safe D/C plans. APEUTIC SPECIALIST * Michaelle Nielsen MD - 07/27/2022 8:59 AM CST Patient's medical record, lab/radiographic studies independently reviewed. No acute overnight events. Patient voices no new major complaints today. We will continue vancomycin, cefepime, and azithromycin for now. Recommend chest tube for loculated pleural effusion with fluid sent for cell count with diff, LDH, protein, pH, gram stain/culture and fungal culture as soon as possible. Will follow. APEUTIC SPECIALIST * Katelin Cuenca OT - 07/27/2022 8:42 AM CSTSummary: OT EVAL OT Initial Evaluation Discharge Recommendation: home with assistance Activity Recommendation for configuration management specialist: UP with 1 2ww GB 07/27/22 0600 Therapy Visit OT Received On 07/27/22 Reason for admission Pt is a 67 yo male who presents with SOB, PNA, hydropneumothorax, and loculated effusions. Pt may requires chest tube placement.....PMH:chronic back pain due to back trauma 20 years ago, anxiety/depression, tobacco abuse....Eval and tx, activity as tolerated Ordering Provider Tracy Yo MD Verified Two Patient Identifiers Yes Patient consents to therapy Yes Acute Inpatient OT Time Calculation OT Start Time 826 OT Stop Time 841 OT Time Calculation (min) 15 min Precautions Instructed on Precautions Yes;Verbalizes understanding Other Telemetry, 9LHFNC Subjective Subjective RN ok'd therapy eval, pt supine in bed upon arrival and agreeable to therapy eval Home Living Home Living Comments Pt lives with in a 1 SH with no PRANAY. Pt has a walk in shower with shower chair, and gbs. Pt has a tall toilet with sink closeby. Pt has a 2ww, and cane but was not using at home. 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 Pt reports he was not on home O2, and no falls. Pain Pain Yes Pain Score 7 Location chronic back pain Interventions Re-positioning;Relaxation;Re-direction;Informed RN Activity Tolerance Limiting Factors to Endurance Fatigue;Weakness;Shortness of breath;Pain Vision - Complex Assessment Additional Comments no acute changes Cognition Overall Cognitive Status WFL Arousal/Alertness Appropriate responses to stimuli Attention Span Appears intact Memory Appears intact Orientation Level Oriented X4 Following Commands Follows all commands and directions without difficulty Safety Judgment Decreased awareness of need for safety Awareness of Errors Good awareness of errors made Deficits Fully aware of deficits Problem Solving Able to problem solve independently Comments Min cues encouragement to increased activity and participation this date Motor Planning Appears intact Perseveration Not present Initiation Appears intact Overall Extremity Assessment Upper Extremity BUE WFL AROM, and strength Hand Function Hand Dominance Right Gross Grasp Right;Left;Functional Coordination Functional Sensation Light Touch No apparent deficits ADL Additional Comments Pt donned shoes seated EOB with min A to clear heel in both shoes this date Bed Mobility Supine to Sit SBA/supervision Other (Comment) Pt SBA supine to EOB, with HOB elevated Functional Transfers Sit to Stand SBA/supervision Bed to Chair Contact guard assist Other (Comment) Pt SBA-CGA sit to stand, and SPT to bedside chair this date, pt declines further attempts at mobility due to back pain and SOB with minimal activity Balance Sitting - Static Independent Sitting - Dynamic SBA Standing - Static SBA Standing - Dynamic CGA Other (Comment) no use of AD this date appears slightly usnteady Assessment Occupational Profile and History Complexity Moderate (Expanded) Performance Skills Deficits Bathing/showering;Dressing;Functional mobility;Personal hygiene and grooming;Toileting Performance Deficit Level Moderate (3-5 deficits) Clinical Decision Making Moderate (min/mod modifications) Complexity Level of Evaluation Moderate Prognosis Good Recommendation OT Recommendation Home with assistance Plan Progress Slow progress, decreased activity tolerance OT Frequency 5 times/week OT - Next Appointment 07/27/22 If this is the last treatment note, it will serve as the discharge summary Yes End of Session End of Session Safety Chair alarm set/activated;Call light within reach;Family/friend present with patient;Nursing aware of session 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 Pt presents with pain, SOB, weakness, decreased independence with LB dressing, grooming, and functional transfers; decreased standing activity tolerance, balance, and safety for functional tasks. Pt would benefit from continued OT at the acute care setting in order to address above stated deficits and maximize functional independence. Anticipate Pt to require possible use of AD for mobility and increased assistance for ADLs/IADL care at d/c home. The below POC initiated 07/27/22 to be followed until 08/16/22 at that time POC to be re-assessed and modified if needed. Pt will complete all functional transfers in room and bathroom with Clark in order to increase independence with functional transfers. Pt will increase standing activity balance using for 3-5 minutes with independence order to increase independence with ADLs, functional transfers, and leisure activities. Pt will perform all LB dressing using AE PRN including clothing retrieval with Modified Clark in order to increase independence with ADLs. Pt will brush teeth, wash face, brush hair, and wash hands standing at sink with Clark in order to increase independence with ADLs. Pt will perform all toileting tasks including clothing management with Clark in order to increase independence with functional transfers and ADLs. Pt will bathe whole body and wash hair seated on shower chair with Modified Clark in order to increase independence with ADLs. Pt will perform supine to sit and sit to supine bed mobility with Clark in order to increaseindependence with ADLs, transitional movements, and functional mobility. Pt will increase activity tolerance/endurance to 6-11 minutes of activity with 1-2 rest breaks in order to increase independence with ADLs, functional transfers, bed mobility, and leisure activities. Pt will participate in 15-30 minutes of therapuetic activities with 1-2 rest breaks in order to increase activity tolerance for increased independence with ADLs and IADLs. Pt will increase knowledge of energy conservation techniques, activity and rest routine, home safety, body mechanics and demonstrate use of techniques during functional activities with Clark in order to increase overall activity tolerance for increased independence with ADLs and IADLs. Pt will increase Brenton UE strength to 5/5 in supportive sitting in order to increase independence with ADLs, activity tolerance, and functional transfers. Pt will increase safety and memory recalling basic orientation and following complex verbal commands with no verbal cuing to increase safety and independence with ADLs and functional transfers. Education: Primary Learners Name: Ray Phillips Primary Language of learner: Angolan Patient Spouse educated on precautions exercises transfers ADLs balance bed mobility equipment therapy plan gait safety. Education was completed one to one verbal hands-on this date. Preference of learning new concepts one to one verbal hands-on Barriers to education this date were pain fatigue. Response to education this date verbalized understanding needs follow up needs assistance. APEUTIC SPECIALIST * Maria Antonia Quiñones, JoannD - 07/27/2022 8:37 AM CST Vancomycin Pharmacokinetic Progress Note Day 2 of therapy Ray Phillips is a 67-year-old male for which pharmacy has been consulted to dose vancomycin for Pneumonia. Loculated Pleural Effusions Other antibiotics ordered include azithromycin 500 mg IV Q24H (07/25-07/29) and cefepime 2 mg IV Q12H (07/25-) Historical vancomycin use: vancomycin 1000 mg x1 07/23/22 @2330 Allergies: Allergies Allergen Reactions ??? Motrin [Ibuprofen] Shortness of Breath ??? Nsaids Shortness of Breath and GI Upset ??? Prednisone Shortness of Breath Height: 5' 5 (1.651 m) Weight: 68.4 kg (150 lb 12.7 oz) Body mass index is 25.09 kg/m??. Temp (24 hr max): Temp Av.9 ??F (36.6 ??C) Min: 97.4 ??F (36.3 ??C) Max: 98.6 ??F (37 ??C) Today's labs and vitals: Lab Results Component Value Date/Time WBC 21.3 (H) 07/27/2022 02:40 AM WBC 17.5 (H) 07/26/2022 02:38 AM WBC 17.6 (H) 07/25/2022 02:16 PM Lab Results Component Value Date/Time CR 0.91 07/27/2022 02:40 AM CR 0.66 (L) 07/26/2022 02:38 AM CR 0.57 (L) 07/25/2022 02:16 PM CrCl = estimated creatinine clearance is 70.4 mL/min (based on SCr of 0.91 mg/dL). Intake/Output Summary (Last 24 hours) at 07/27/2022 0837 Last data filed at 07/27/2022 0747 Gross per 24 hour Intake 572.5 ml Output 600 ml Net -27.5 ml Pertinent Cultures: Date Drawn Site Organism Pertinent Sensitivity 07/25 BCX 2/ NGTD MRSA PCR Sent Strep PNU Urine Negative No pertinent past Epic positive culture history Levels: Date Time Level AUC Dose Comments 1.75 gm x 1 then 1.25 gm Q12H x Assessment: Ray Phillips is a 67-year-old male who is currently receiving vancomycin. AUC goal is 400 - 600 Current AUC level is Pending Renal function is Worsening SCr 0.91 from 0.57. DESTINI ID is consulted Plan: Antibiotic Plan: 07/26 PM dose was delayed till 07/27 AM due to lost IV access per OCT. Will removedrug from profile for serial dosing. Next level due: BMP and Random LVL in AM 07/28 Pharmacy will continue to follow cultures, clinical status, and appropriateness of therapy. Thank you for the consult. Pharmacy Consult per Dr. Srinath Quiñones, PharmD Phone: [phone] 07/27/2022 8:37 AM APEUTIC SPECIALIST APEUTIC SPECIALIST * Angela Dawkins RN - 07/27/2022 8:35 AM CSTSummary: D/C plans Met with pt and ex /emergency contact, Maite Eldridge at bedside to assess/discuss CM needs/safe D/C plans. PCP Dr Jany CUEVAS. Meds [facility] Leonardo CUEVAS. States he lives with emergency contact, Maite Eldridge in 1 story home with four steps in/out of home. States he had Pfizer COVID vaccines x2, booster x1. States does not have any DME or extra assistance/homemakers in home. States independent at baseline with all personal care/ADLs/IADLs. CM will follow for any CM needs/facilitate safe D/C plans. 07/27/22 0835 Referral Data Referral Reason Discharge Planning Source of Information Patient Patient Information Primary Caregiver Self;Spouse (Lives with ex ) Support System Immediate family Baseline ADL's Functional Status Independent Living Arrangements Spouse/significant other (Lives with ex .) Type of Residence Private residence Ambulation Assistance No Bathing/Grooming Assistance No Dressing Assistance No Behavior Oriented;Cooperative Communication Talks;Understands Angolan Socioeconomic Needs Caregiver Needed No At Risk of Abuse or Neglect No Adequate Resources Yes Psychological Needs: Mental health concerns No Suspected Drug or Alcohol Abuse No Inappropriate Patient/Family Behaviors No Difficult Adjustment to Diagnosis No Recent Hospitalization Recent Hospitalization within 30 days No Anticipated Discharge Needs Change in Living Arrangements No In-Home Care or Equipment No Vocational and/or Role Loss No Inability to Complete ADL's No Anticipated DC Plan Living Arrangements Spouse/significant other (Lives with ex ) Support Systems Spouse/significant other (Lives with ex ) Type of Residence Private residence Assistance Needed No Patient expects to be discharged to: Home APEUTIC SPECIALIST * Charly Morillo, PT - 07/27/2022 8:27 AM CST PT Initial Evaluation Discharge Recommendation: home with assistance Activity Recommendation for configuration management specialist: Up with 1, GB 07/27/22 1200 Therapy Visit Ordering Provider Tracy Yo MD PT Received On 07/27/22 Subjective RN ok'd therapy eval, pt supine in bed upon arrival and agreeable to therapy eval Reason for admission Pt is a 67 yo male who presents with SOB, PNA, hydropneumothorax, and loculated effusions. Pt may requires chest tube placement.....PMH:chronic back pain due to back trauma 20 years ago, anxiety/depression, tobacco abuse....Eval and tx, activity as tolerated Verified Two Patient Identifiers Yes Patient consents to therapy Yes Acute Inpatient PT Time Calculation PT Start Time 0827 PT Stop Time 0842 PT Time Calculation (min) 15 min Precautions General Precautions Fall Risk;Supplemental oxygen Instructed on Precautions Yes;Verbalizes understanding Other Telemetry, 9LHFNC Home Living Home Living Comments Pt lives with in a 1 SH with no PRANAY. Pt has a walk in shower with shower chair, and gbs. Pt has a tall toilet with sink closeby. Pt has a 2ww, and cane but was not using at home. 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 Pt reports he was not on home O2, and no falls. Pain Pain Yes Pain Score 7 Location Chronic back pain Interventions Re-positioning;Relaxation Activity Tolerance Limiting Factors to Endurance Fatigue;Weakness;Shortness of breath;Pain Cognition Overall Cognitive Status WFL Arousal/Alertness Appropriate responses to stimuli Attention Span Appears intact Memory Appears intact Orientation Level Oriented X4 Following Commands Follows all commands and directions without difficulty Safety Judgment Decreased awareness of need for safety Awareness of Errors Good awareness of errors made Deficits Fully aware of deficits Problem Solving Able to problem solve independently Comments Min cues encouragement to increased activity and participation this date Motor Planning Appears intact Perseveration Not present Initiation Appears intact Sensation Light Touch No apparent deficits Overall Extremity Assessment Lower Extremity BLE AROM/Strength WFL Bed Mobility Supine to Sit SBA/supervision Other (Comment) Pt SBA supine to EOB, with HOB elevated TRANSFERS Sit to Stand SBA/supervision Bed to Chair Contact guard assist Gait Other (Comment) Patient declined further mobility at this date due to reports of increased low backpain and increased SOB. Balance Sitting - Static Independent Sitting - Dynamic SBA Standing - Static SBA Standing - Dynamic CGA Other (Comment) no use of AD this date appears slightly usnteady Assessment Personal Factors/Comorbidities Impacting Care 1-2 personal factors/comorbidities Examination of Body Systems Moderate (3 or more Elements) Objectives of Body Systems Impaired transfers;Impaired ambulation;Impaired balance;Impaired respiratory function;Decreased endurance Clinical Presentation of Patient Evolving and changing characteristics Complexity Level of Evaluation Moderate Prognosis Good PT Assess/Eval Other (Comment) Patient is a 67 year old male currently demonstrating impaired bed mobility/transfers, impaired balance, decreased endurance, decreased respiratoy function and increased chronic low back pain leading to decreased activity tolerance. Patient would benefit from continued skilled physical therapy to address current deficits and assist in returning home safely. Patient will be followed and progressed appropriately. Recommendation PT Recommendation Home with assistance Plan PT Treatments/Interventions Gait Training;Therapeutic Exercises;Therapeutic Activities;Neuromuscular re-education Progress Slow progress, decreased activity tolerance PT Frequency 5 times/week PT plan for next session Gait trial PT - Next Appointment 07/27/22 If this is the last treatment note,it will serve as the discharge summary Yes End of Session End of Session Safety Chair alarm set/activated;Call light within reach;Family/friend present with patient;Nursing aware of session;Transfer status education The below POC to be followed until 08/10/22 at that time POC will be re-assessed to ensure patient is making appropriate progression. Pt. will be able to perform supine to/from sitting at EOB with Clark to improve mobility. Pt. will be able to perform sit to/from standing with modified independence using wheeled walker toimprove independence. Pt. will be able to ambulate 300 feet with Modified Clark using wheeled walker to help improve strength and functional independence. Pt. will be able to maintain dynamic sitting balance on soft surface with Clark to improve functional mobility. Pt. will be able to maintain static standing balance 5-10 minutes with Modified Clark using wheeled walker to improve independence. Pt. will be able to maintain dynamic standing balance during side-stepping L/R and marching with Modified Clark using wheeled walker to improve functional mobility. Education: Primary Learners Name: Ray Phillips Primary Language of learner: Angolan Patient was educated on precautions exercises transfers ADLs balance bed mobility equipment therapy plan gait safety. Education was completed verbal hands-on demonstration this date. Preference of learning new concepts verbal hands-on demonstration Barriers to education this date were pain. Response to education this date needs follow up. APEUTIC SPECIALIST * Joann HartleyD - 07/26/2022 3:08 PM CST Vancomycin Pharmacokinetic Progress Note Day 1 of therapy Ray Phillips is a 67-year-old male for which pharmacy has been consulted to dose vancomycin for Pneumonia. Other antibiotics ordered include azithromycin and cefepime Historical vancomycin use: vancomycin 1000 mg x1 07/23/22 @2330 Allergies: Allergies Allergen Reactions ??? Motrin [Ibuprofen] Shortness of Breath ??? Nsaids Shortness of Breath and GI Upset ??? Prednisone Shortness of Breath Height: 5' 5 (1.651 m) Weight: 68 kg (150 lb) Body mass index is 24.96 kg/m??. Temp (24 hr max): Temp Av.3 ??F (36.8 ??C) Min: 97.6 ??F (36.4 ??C) Max: 98.8 ??F (37.1 ??C) Today's labs and vitals: Lab Results Component Value Date/Time WBC 17.5 (H) 07/26/2022 02:38 AM WBC 17.6 (H) 07/25/2022 02:16 PM Lab Results Component Value Date/Time CR 0.66 (L) 07/26/2022 02:38 AM CR 0.57 (L) 07/25/2022 02:16 PM CrCl = estimated creatinine clearance is 97.1 mL/min (A) (based on SCr of 0.66 mg/dL (L)). Intake/Output Summary (Last 24 hours) at 07/26/2022 1508 Last data filed at 07/26/2022 0900 Gross per 24 hour Intake 530 ml Output 2550 ml Net -2020 ml Pertinent Cultures: Date Drawn Site Organism Pertinent Sensitivity Levels: Date Time Level AUC Dose Comments Assessment: Ray Phillips is a 67-year-old male who is currently receiving vancomycin. AUC goal is 400 - 600 Current AUC level is Pending Renal function is At Baseline Plan: Antibiotic Plan: 1750 mg IV x1 followed by 1250 mg IV q12h with a predicted AUC of 524 Next level due: 07/28 with AM labs Pharmacy will continue to follow cultures, clinical status, and appropriateness of therapy. Thank you for the consult. Pharmacy Consult per Dr. Srinath STEVE, PharmD Phone: [phone] 07/26/2022 3:08 PM APEUTIC SPECIALIST * Florencio Amaya MD - 07/26/2022 10:12 AM CST Ray Phillips is a 67-year-old male patient admitted with refractory PNA, anemia, hydropneumothorax,loculated effusions Subjective Pt seen and examined. Breathing hard but stable Case reviewed in depth Pt denies BRB, Melena, HE Appears comfortable on 10L high flow Principal Problem: Respiratory failure (CMS/HCC) SNOMED CT(R): RESPIRATORY FAILURE Past Medical History: Diagnosis Date ??? Chronic back pain Current Facility-Administered Medications Medication Dose Route Frequency Provider Last Rate Last Admin ??? acetaminophen (TYLENOL) tablet 650 mg 650 mg Oral Q4H PRN Tracy Yo MD ??? albuterol sulfate HFA 108 (90 Base) MCG/ACT inhaler 2 puff 2 puff Inhalation Q4H PRN Tracy Yo MD ??? azithromycin (ZITHROMAX) 500 mg in NS 250 mL IVPB 500 mg Intravenous Q24H Tracy Yo MD Stopped at 07/25/221999 ??? ceFEPIme (MAXIPIME) 2 g in sodium chloride (PF) 0.9 % 10 mL IV 2 g Intravenous Q12H Tracy Yo MD 2 g at 07/26/22 0548 ??? cyclobenzaprine (FLEXERIL) tablet 10 mg 10 mg Oral TID PRN Tracy Yo MD 10 mg at109/25/21 0828 ??? FLUoxetine (PROzac) capsule 20 mg 20 mg Oral Daily Tracy Yo MD 20 mg at 07/26/22 0826 ??? gabapentin (NEURONTIN) capsule 300 mg 300 mg Oral BID Tracy Yo MD 300 mg at 07/26/22 0826 ??? HYDROcodone-acetaminophen (NORCO) 10-325 MG tablet 1 tablet 1 tablet Oral Q6H PRN Tracy Yo MD 1 tablet at 07/26/22 0828 ??? influenza virus vaccine (QUAD) injection 0.5 mL 0.5 mL Intramuscular Once Tracy Yo MD ??? ipratropium-albuterol (DUONEB) 0.5-2.5 (3) MG/3ML nebulizer solution 3 mL 3 mL Nebulization [id number] Stevan Yo MD 3 mL at 07/26/22 0745 ??? lidocaine-EPINEPHrine 2 %-1:[id number] injection 20 mL 20 mL Intradermal Once Nery Patrick MD ??? LORazepam (ATIVAN) tablet 1 mg 1 mg Oral BID PRN Tracy oY MD 1 mg at 07/25/22 1659 ??? methylPREDNISolone sodium succinate (SOLU-Medrol) injection 62.5 mg 62.5 mg Intravenous Q12H Tracy Yo MD 62.5 mg at 07/26/22 0548 ??? morphine (MSIR) tablet 30 mg 30 mg Oral Q8H PRN Tracy Yo MD 30 mg at 07/26/22 0547 ??? ondansetron (ZOFRAN) injection 4 mg 4 mg Intravenous Q8H PRN Tracy Yo MD ??? sodium chloride (OCEAN) 0.65 % nasal spray 1 spray 1 spray Each Nostril PRN Tracy Yo MD 1 spray at 07/25/22 2305 ??? traZODone (DESYREL) tablet 100 mg 100 mg Oral Nightly at bedtime Tracy Yo MD 100 mg at 07/25/222012 ??? vancomycin 1250 mg in NS 250 mL IVPB 1,250 mg Intravenous Q12H Tracy Yo MD 166.7 mL/hr at 07/26/22 0958 1,250 mg at 07/26/22 0958 ??? vancomycin pharmacy to dose placeholder Intravenous See Admin Instructions Tracy Yo MD ROS 14 pt ROS ow neg Vitals: 07/26/22 0800 BP: 110/63 Pulse: 65 Resp: 12 Temp: 97.6 ??F (36.4 ??C) SpO2: 91% Physical Exam Physical Exam Constitutional: General: He is not in acute distress. Appearance: He is ill-appearing. He is not toxic-appearing or diaphoretic. HENT: Head: Normocephalic and atraumatic. Eyes: General: No scleral icterus. Cardiovascular: Rate and Rhythm: Normal rate and regular rhythm. Heart sounds: No murmur heard. No friction rub. No gallop. Pulmonary: Effort: Pulmonary effort is normal. No respiratory distress. Breath sounds: No stridor. Rales present bilat. R>L. No wheezing. Abdominal: General: There is no distension. Palpations: Abdomen is soft. Tenderness: There is no abdominal tenderness. There is no guarding. Musculoskeletal: General: No swelling or tenderness. Cervical back: Neck supple. Skin: General: Skin is warm and dry. Findings: No erythema or rash. Neurological: Mental Status: He is alert. Mental status is at baseline. Psychiatric: Mood and Affect: Mood normal. Recent Labs Lab 07/26/228 WBC 17.5* RBC 2.26* HGB 7.6* HCT 22.9* MCV 101.3* MCH 33.6* MCHC 33.2 PLT 283 RDW 13.8 MPV 10.6* NEUC 16.80* LYMC 0.53* MONOC 0.18 EOSC 0.00 BASOC 0.00 Recent Labs Lab 07/26/22237 NA 135* K 4.5 CL 105 CO2 26.8 AGAP 3.2* BUN 15 CR 0.66* GLU 137* CA 8.1* CTA CHEST+ABD+PEL Result Date: 07/26/2022 IMPRESSION: 1. Air-fluid level within loculated fluid collection in the right posterior pleural cavity related to loculated hydropneumothorax, empyema or abscess versus bronchopleural fistula. Pleasecorrelate clinically. 2. Loculated pleural fluid in the posterior medial and posterolateral aspect of the right lower chest. Very small left pleural effusion. 3. Loculated pleural effusion adjacent to the right heart border or less likely loculated pericardial effusion. 4. Patchy areas of atelectasis versus infiltrate bilaterally in the lungs, greatest in the lower lobes and in the left upper lobe as noted above. Please correlate clinically for atypical pneumonia. 5. At least 3 hypodense lesions in the spleen with the largest 1.8 cm. Recommend correlation with ultrasound of the spleen for further evaluation. 6. Slight surface nodularity of the liver; please correlate clinically for possiblecirrhosis of the liver. 7. Please see the CT lumbar spine exam of 08/22/2021 regarding postoperative and other chronic findings involving the lumbar spine with chronic compression deformity of anterior L3 vertebral body. 8. Increased density in the gallbladder concerning for gallstones. Dilated common duct measuring up to 1.5 cm. Recommend right upper quadrant ultrasound exam for further evaluation. 9. Small hiatal hernia. 10. Please see above report for the other findings. This CT exam was performed using one or more of the following dose reduction techniques: automated exposure control, adjustment of the mA and/or kV according to patient size, and/or use of iterative reconstruction's technique. Referred By: PROVIDER NON-STAFF Electronically Signed By: Karine Sher MD on 21:23 AM Interpreted By: Karine Sher MD, 07/26/2022 12:56 AM XR CHEST PORTABLE Result Date: 07/26/2022 IMPRESSION: Loculated effusion on the right. Bilateral pulmonary opacifications due to atelectasis or infiltrate greatest in the right lower lung and throughout the left lung. Left effusion. ReferredBy: PROVIDER NON-STAFF Interpreted By: Rudy Montaño MD, 07/26/2022 7:27 AM Plan Acute hypoxic respiratory failure COPD Necrotizing pneumonia of right lower lobe Loculated right pleural effusion/ possible bronchopleural fistula Hemopneumothorax Small pericardial effusion Splenomegaly with hypodense lesions Acute blood loss anemia vs Chronic anemia Hypokalemia requiring monitoring and treatment Chronic back pain Anxiety/depression History of tobacco abuse Chronic compression fracture of L3 Lumbar spondylosis History of back trauma Probable COPD with exacerbation Pericardial effusion ?? 67-year-old male being admitted for diffuse lung disease and right lower lobe pneumonia that did not respond to antibiotics at outlying hospital. ?? Pneumonia Acute hypoxic resp failure Loculated pneural effusion CTA overnight with hydropneumothorax, loculated organized effusions Probable underlying COPD with exacerbation Hx 50 year smoking hx -blood cultures x2. -sputum culture aerobic/anaerobic, fungal culture, strep pneumo, Legionella ag. Obtain AFB smear. -Cont cefepime, vancomycin, azithromycin. --Monitor SPO2 -Pulmonology consulted for possible bronch -CTS consulted for CT placement. -ID consulted given refractory nature / Atypical nature of PNA -Saturating 92% on 10L via nasal cannula. Continue oxygen supplementation as needed to maintain adequate saturation. -Case discussed with ICU last night ?? Anemia/Bleeding?? - STAT CTA chest/abdomen/pelvis neg for source of bleeding. We will repeat H/H in case this is an erroneous result. Haptoglobin, LDH and smear ordered -S/p 1 unit PRBC. ?? Small pericardial effusion: -Obtain TTE to further evaluate pericardial effusion. This was reported small and could be secondary to infection and/or malignancy. No clinical hemodynamic compromise at this time. Splenic lesions Blood cultures done Rule out embolic lesions US Hypokalemia:-replace K ?? Chronic back pain, hx back injury -Continue home meds for pain and anxiety, has chronic low back pain due to back trauma. Has chronicT3 compression fracture. ?? Monitor closely on IMC. Low threshold for ICU transfer. Will discuss with ICU team if anemia and/ or respiratory failure worsens. ?? Continue supportive care Mechanical DVT prophylaxis Discharge Disposition Unclear 40 min spent on patient, including consultation with pulmonary, CTS and ID. >50 percent of time spent on direct patient care. Pt critically ill with high likelihood for decompensation. FLORENCIO AMAYA MD APEUTIC SPECIALIST * Nan Gomez RN - 07/26/2022 2:31 AM CST Problem: Gas Exchange - Impaired Goal: Pulse oximetry within specified parameters Outcome: Not Progressing Problem: Reduced risk for falls/injury Goal: Reduced Risk for Falls/Injury Outcome: Met This Shift Problem: Anxiety Goal: Alleviation of anxiety Outcome: Met This Shift Problem: Safety Goal: Patient will be injury free during hospitalization Description: Assess and monitor vitals signs, neurological status including level of consciousness and orientation. Assess patient's risk for falls and implement fall prevention plan of care and interventions per hospital policy. Ensure arm band on, uncluttered walking paths in room, adequate room lighting, call light and overbed table within reach, bed in low position, wheels locked, side rails up per policy, and non-skid footwear provided. Outcome: Met This Shift Problem: Daily Care Goal: Daily care needs are met Description: Assess and monitor ability to perform self care and identify potential discharge needs. Outcome: Met This Shift APEUTIC SPECIALIST * Ann Hammond NP - 07/26/2022 2:00 AM CST Pt seen at bedside, cta reviewed, Saturations 94% on 14l HFNC, Viji hgb 7.5 Does not appear dyspneic at rest, Repeat labs/abg ordered, D/w intnsivist Will need IR consult CT surgery consult in am- low threshold to transfer to ICU for hemodynamic instability or worsening resp status APEUTIC SPECIALIST * Allyn Irby PharmD - 07/25/2022 5:55 PM CST Vancomycin Pharmacokinetic Progress Note Day 0 of therapy Ray Phillips is a 67-year-old male for which pharmacy has been consulted to dose vancomycin for Pneumonia. Other antibiotics ordered include azithromycin. Historical vancomycin use: vancomycin 1000 mg x1 07/23/22 @2330 Allergies: No Known Allergies Height: 5' 5 (1.651 m) Weight: 68 kg (150 lb) Body mass index is 24.96 kg/m??. Temp (24 hr max): Temp Av ??F (36.7 ??C) Min: 97.9 ??F (36.6 ??C) Max: 98.1 ??F (36.7 ??C) Today's labs and vitals: Lab Results Component Value Date/Time WBC 17.6 (H) 07/25/2022 02:16 PM Lab Results Component Value Date/Time CR 0.57 (L) 07/25/2022 02:16 PM CrCl = estimated creatinine clearance is 112.4 mL/min (A) (based on SCr of 0.57 mg/dL (L)). No intake or output data in the 24 hours ending 07/25/22 1755 Pertinent Cultures: Date Drawn Site Organism Pertinent Sensitivity Levels: Date Time Level AUC Dose Comments Assessment: Ray Phillips is a 67-year-old male who is currently receiving vancomycin. AUC goal is 400 - 600 Current AUC level is Pending Renal function is At Baseline Plan: Antibiotic Plan: 1750 mg IV x1 followed by 1250 mg IV q12h Next level due: 07/28 with AM labs Pharmacy will continue to follow cultures, clinical status, and appropriateness of therapy. Thank you for the consult. Pharmacy Consult per Dr. Srinath IRBY, PharmD Phone: [phone] 07/25/2022 5:55 PM APEUTIC SPECIALIST documented in this encounter H&P Notes * Raquel Wetzel MD - 08/02/2022 6:24 AM CST HISTORY AND PHYSICAL INTERVAL NOTE: I have reviewed Ray Phillips History & Physical which was performed within the past 30 days. After examining Ray Phillips, no change has occurred in the patient's condition since the H&P was completed. Informed Consent Discussion: Potential benefits, risks, and side effects of the patient's procedure/surgery; the likelihood of the patient achieving his or her goals; and any potential problems that might occur during recuperation were discussed with the patient/family/personal office services representative. Reasonable alternatives to the patient's proposed procedure/surgery including benefits, risks, and side effects related to the alternatives and the risks related to not receiving the proposed care were also discussed with the patient/family/personal office services representative. Questions were answered and the patient /family/personal office services representative verbalized understanding and desires to proceed. Cosigned by Ross Blackburn MD at 08/03/2022 11:37 AM THERAPEUTIC SPECIALIST APEUTIC SPECIALIST APEUTIC SPECIALIST Source Note - Raquel Wetzel MD - 07/26/2022 11:38 AM THERAPEUTIC SPECIALIST [facility] Thoracic Surgery Consult Reason for consult: Right pleural effusion HPI: Mr. Phillips is a Year old male with 25 pack year smoking history who does not regularly see a PCP who presented to an outside hospital 6 days ago with shortness of breath and right-sided chest pain and has been receiving treatment for community acquired pneumonia with antibiotics. He was not improvingso he was transferred [facility] were [facility] of the chest was obtained and showed a smallright-sided loculated pleural effusion. He has hypoxic respiratory failure and is currently on 10L NC. He endorses hemoptysis, shortness of breath, and right-sided chest pain. Denies unintentional weight loss. PMH: Possible undiagnosed COPD. Does not regularly see a physician. Past Surgical History: None FMH: Not significant Social History: Smokes half a pack a day for 50 years ROS: Constitutional: Endorses recent fevers and chills HEENT: no headaches, blurry vision, otalgia, rhinorrhea CV: No palpitations Resp: Right-sided chest pain, dyspnea, hemoptysis, cough GI: No nausea or vomiting : no dysuria, hematuria MSK: no myalgias, arthralgias Endocrine: no heat or cold intolerance Integ: no skin rashes Neuro: no headaches, confusion Psych: no anxiety or depression: Medications Prior to Admission Medication Sig Dispense Refill ??? cyclobenzaprine (FLEXERIL) 10 MG tablet Take 10 mg by mouth 3 (three) times daily as needed forMuscle Spasms. ??? FLUoxetine (PROZAC) 10 MG tablet Take 20 mg by mouth daily. ??? gabapentin (NEURONTIN) 300 MG capsule Take 300 mg by mouth 2 (two) times daily. ??? HYDROcodone-acetaminophen (NORCO) 10-325 MG tablet Take 1 tablet by mouth every 6 (six) hours as needed for Pain. ??? LORazepam (ATIVAN) 1 MG tablet Take 1 mg by mouth 2 (two) times daily as needed for Anxiety. ??? morphine (MSIR) 15 MG tablet Take 30 mg by mouth every 8 (eight) hours as needed. Indications: Chronic Pain ??? traZODone (DESYREL) 100 MG tablet Take 100 mg by mouth nightly at bedtime. ??? albuterol sulfate HFA 108 (90 Base) MCG/ACT inhaler INHALE 1 PUFF BY MOUTH EVERY 4 HOURS NEEDED FOR WHEEZING OR SHORTNESS OF BREATH ??? benzonatate (TESSALON) 200 MG capsule TAKE 1 CAPSULE BY MOUTH TWICE A DAY NEEDED FOR COUGH ??? FLUoxetine (PROZAC) 20 MG capsule ??? fluticasone propionate (FLONASE) 50 MCG/ACT nasal spray INSTILL 1 SPRAY IN EACH NOSTRIL DAILY ??? VASCEPA 1 g capsule Take 2 g by mouth 2 (two) times daily. Physical Exam: Vitals: 07/26/22 0800 BP: 110/63 Pulse: 65 Resp: 12 Temp: 97.6 ??F (36.4 ??C) SpO2: 91% Gen: adult in NAD HEENT: normocephalic, atraumatic. Extraocular movements intact. Neck soft, supple. Normal hearing CV: RRR. Resp: On 10 L nasal cannula, no increased work of breathing, symmetric chest rise Abdom: Soft, nontender, nondistended : Deferred MSK: moves all extremities equally Pulse: palpable radial pulses bilaterally Integ: skin warm, dry, no erythema Neuro: AAOx3, no focal deficits Psych: appropriate mood and affect Diagnostic Data: Labs: Recent Labs Lab 07/25/22 1416 07/26/22 0238 NA 137 135* K 3.4* 4.5 CL 106 105 CO2 24.7 26.8 AGAP 6.3 3.2* BUN 17 15 CR 0.57* 0.66* GLU 85 137* CA 7.8* 8.1* Recent Labs Lab 07/26/22 0238 WBC 17.5* RBC 2.26* HGB 7.6* HCT 22.9* MCV 101.3* MCH 33.6* MCHC 33.2 PLT 283 RDW 13.8 MPV 10.6* NEUC 16.80* LYMC 0.53* MONOC 0.18 EOSC 0.00 BASOC 0.00 Recent Labs Lab 07/25/22 1723 INR 1.3* Imaging: CTA chest IMPRESSION: 1. Air-fluid level within loculated fluid collection in the right posterior pleural cavity related to loculated hydropneumothorax, empyema or abscess versus bronchopleural fistula. Please correlate clinically. 2. Loculated pleural fluid in the posterior medial and posterolateral aspect of the right lower chest. Very small left pleural effusion. 3. Loculated pleural effusion adjacent to the right heart border or less likely loculated pericardial effusion. 4. Patchy areas of atelectasis versus infiltrate bilaterally in the lungs, greatest in the lower lobes and in the left upper lobe as noted above. Please correlate clinically for atypical pneumonia. A/P: 67-year-old male with right-sided parapneumonic pleural effusion. CT scan was reviewed and given the small size of the pleural effusion, we do not think that this is the cause of his respiratory failure and COPD exacerbation seems more likely. Recommend continuing antibiotics and treatment of COPD exacerbation. Can consult IR tomorrow to see if they can place a chest tube in the effusion and possible tPA/DNase to help break up the loculations. CT surgery will continue to follow. Attending: Dr. Alexey Wetzel MD 07/26/2022 Staff: Cosigned by Ross Blackburn MD at 07/27/2022 6:52 AM THERAPEUTIC SPECIALIST APEUTIC SPECIALIST APEUTIC SPECIALIST * Tracy Yo MD - 07/25/2022 1:55 PM CST Attending Provider: Tracy Yo,* PCP: GRACIELA LEIGH MD Ray Phillips is an 67-year-old male. Reason for Admission: Respiratory failure (CMS/[facility]) HPI: 67-year-old male with past medical history significant for chronic back pain due to back trauma 20 years ago, anxiety/depression, tobacco abuse who presents to [facility] with complaint of shortness of breath. He was diagnosed with pneumonia and was being treated with antibiotics but his symptoms reportedly did not improve. His chest CT showed diffuse pulmonary disease consistent with pneumonia and a loculated right pleural effusion. Upon arrival to [facility], patient reports intermittent shortness of breath. He reports that he has been coughing up blood intermittently. He reports generalized weakness. He reports a 50-year smoking history and was recently smoking half a pack a day and quit a week and a half ago. He denies any other complaints at this time. Past Medical History: Diagnosis Date ??? Chronic back pain Allergies: No Known Allergies Social History Tobacco Use ??? Smoking status: Former Packs/day: 0.50 Years: 50.00 Pack years: 25.00 Types: Cigarettes ??? Smokeless tobacco: Never Substance Use Topics ??? Alcohol use: Not Currently History reviewed. No pertinent surgical history. Family History Problem Relation Name Age of Onset ??? Heart Disease Father Travel Exposure: No current facility-administered medications on file prior to encounter. Current Outpatient Medications on File Prior to Encounter Medication Sig ??? cyclobenzaprine (FLEXERIL) 10 MG tablet Take 10 mg by mouth 3 (three) times daily as needed forMuscle Spasms. ??? FLUoxetine (PROZAC) 10 MG tablet Take 20 mg by mouth daily. ??? gabapentin (NEURONTIN) 300 MG capsule Take 300 mg by mouth 2 (two) times daily. ??? HYDROcodone-acetaminophen (NORCO) 10-325 MG tablet Take 1 tablet by mouth every 6 (six) hours as needed for Pain. ??? LORazepam (ATIVAN) 1 MG tablet Take 1 mg by mouth 2 (two) times daily as needed for Anxiety. ??? morphine (MSIR) 15 MG tablet Take 30 mg by mouth every 8 (eight) hours as needed. Indications: Chronic Pain ??? traZODone (DESYREL) 100 MG tablet Take 100 mg by mouth nightly at bedtime. Blood pressure 119/71, pulse 73, temperature 97.9 ??F (36.6 ??C), temperature source Oral, resp. rate (!) 33, weight 68 kg (150 lb), SpO2 90 %. ROS 10 systems reviewed and negative except as stated above Physical Exam Constitutional: General: He is not in acute distress. Appearance: He is ill-appearing. He is not toxic-appearing or diaphoretic. HENT: Head: Normocephalic and atraumatic. Eyes: General: No scleral icterus. Cardiovascular: Rate and Rhythm: Normal rate and regular rhythm. Heart sounds: No murmur heard. No friction rub. No gallop. Pulmonary: Effort: Pulmonary effort is normal. No respiratory distress. Breath sounds: No stridor. Rales present. No wheezing. Abdominal: General: There is no distension. Palpations: Abdomen is soft. Tenderness: There is no abdominal tenderness. There is no guarding. Musculoskeletal: General: No swelling or tenderness. Cervical back: Neck supple. Skin: General: Skin is warm and dry. Findings: No erythema or rash. Neurological: Mental Status: He is alert. Mental status is at baseline. Psychiatric: Mood and Affect: Mood normal. Radiology imaging reports from transferring facility reviewed. CT of abdomen and pelvis performed on 07/25/2022 reported to show diffuse lung disease, consistent with pneumonia including right lower lobe cavitation and superimposed pulmonary edema. Small loculated right pleural effusion. Small leftpleural effusion. Small pericardial effusion. Small sliding hiatal hernia. Mild splenomegaly. CTA chest performed on 11th/19/22 reported to show limited examination, no occlusive segmental or central embolus detected. Right lower lobe pneumonia likely with a focus of necrosis and adjacent indeterminate nodular opacities. Moderate loculated right pleural effusion Hgb was reported 6.8 this AM which increased to 10.1 after a unit of blood. Repeat labs here. Assessment and plan: Acute hypoxic respiratory failure Probable COPD Necrotizing pneumonia of right lower lobe Loculated right pleural effusion Possible Pulmonary edema Small pericardial effusion Splenomegaly Acute blood loss anemia? Hypokalemia requiring monitoring and treatment Chronic back pain Anxiety/depression History of tobacco abuse Chronic compression fracture of L3 Lumbar spondylosis History of back trauma Probable COPD with exacerbation Pericardial effusion 67-year-old male being admitted for diffuse lung disease and right lower lobe pneumonia that did not respond to antibiotics at outlying hospital. Differential diagnosis include complicated community-acquired pneumonia with necrosis and loculated pleural effusion, mycobacterial/atypical mycobacterial infection, pulmonary parenchymal and/or interstitial disease, probable COPD and also possible underlying malignancy among other etiologies. Patient's hemoglobin was reported to be 6.8 this morning which increased to 10.1 with a unit of blood and on recheck of H/H here its 7.0. There is no obvious external bleeding. He has not had a bowel movement in a couple of days. Pneumonia Acute hypoxic resp failure Loculated pneural effusion Probable underlying COPD with exacerbation Hx 50 year smoking hx -Obtain blood cultures x2. Obtain sputum culture aerobic/anaerobic, fungal culture, strep pneumo, Legionella ag. Obtain AFB smear. -Start cefepime, vancomycin, azithromycin. Check MRSA screen -Obtain right thoracentesis with fluid studies and cultures. Added cytology as there could be underlying malignancy. -Check HIV status -Patient likely has undiagnosed COPD and appears to be in at least moderate exacerbation. We will start bronchodilators and steroids. -Monitor SPO2 -Pulmonology consultation in AM for consideration of bronchoscopy. -Saturating 92% on 6 L via nasal cannula. Continue oxygen supplementation as needed to maintain adequate saturation. Anemia/Bleeding?? -Obtain STAT CTA chest/abdomen/pelvis to look for source of bleeding. We will repeat H/H in case this is an erroneous result. Check LDH and peripheral smear to rule out hemolysis. -obtain retic count -Transfuse 1 unit PRBC. There could be a component of CHF/pulm edema. Will administer a dose of IV lasix with blood transfusion if needed. Will follow up on CTA first. Otherwise he is not fluid overloaded peripherally. Checking echo for possible CHF as well as pericardial effusion Small pericardial effusion: -Obtain TTE to further evaluate pericardial effusion. This was reported small and could be secondary to infection and/or malignancy. No clinical hemodynamic compromise at this time. Hypokalemia: -replace K Chronic back pain, hx back injury -Continue home meds for pain and anxiety, has chronic low back pain due to back trauma. Has chronicT3 compression fracture. Monitor closely on IMC. Low threshold for ICU transfer. Will discuss with ICU team if anemia and/ or respiratory failure worsens. Continue supportive care Mechanical DVT prophylaxis Tracy Yo MD 07/25/2022 APEUTIC SPECIALIST documented in this encounter Procedure Notes * Patti Pineda MD - 07/30/2022 4:15 PM CSTAssociated Order(s): BRONCHOSCOPY Procedure(s): BRONCHOSCOPY Procedure Bronchoscopy and BAL Indications for necrotizing pneumonia, smoking and asbestos exposure Consent from patient, aware of risks and benefits sedation from anesthesia Findings: normal airways, no endobronchial lesions, thick mucous suctioned, BAL with 100 cc to RLL no complications Recovery per anesthesia, extubated at the end, awake Sample sent to cytology and microbiology Kenisha Pineda APEUTIC SPECIALIST documented in this encounter Consult Notes * Raquel Wetzel MD - 07/26/2022 11:38 AM CST [facility] Thoracic Surgery Consult Reason for consult: Right pleural effusion HPI: Mr. Phillips is a Year old male with 25 pack year smoking history who does not regularly see a PCP who presented to an outside hospital 6 days ago with shortness of breath and right-sided chest pain and has been receiving treatment for community acquired pneumonia with antibiotics. He was not improvingso he was transferred to [facility] were CT of the chest was obtained and showed a smallright-sided loculated pleural effusion. He has hypoxic respiratory failure and is currently on 10L NC. He endorses hemoptysis, shortness of breath, and right-sided chest pain. Denies unintentional weight loss. PMH: Possible undiagnosed COPD. Does not regularly see a physician. Past Surgical History: None FMH: Not significant Social History: Smokes half a pack a day for 50 years ROS: Constitutional: Endorses recent fevers and chills HEENT: no headaches, blurry vision, otalgia, rhinorrhea CV: No palpitations Resp: Right-sided chest pain, dyspnea, hemoptysis, cough GI: No nausea or vomiting : no dysuria, hematuria MSK: no myalgias, arthralgias Endocrine: no heat or cold intolerance Integ: no skin rashes Neuro: no headaches, confusion Psych: no anxiety or depression: Medications Prior to Admission Medication Sig Dispense Refill ??? cyclobenzaprine (FLEXERIL) 10 MG tablet Take 10 mg by mouth 3 (three) times daily as needed forMuscle Spasms. ??? FLUoxetine (PROZAC) 10 MG tablet Take 20 mg by mouth daily. ??? gabapentin (NEURONTIN) 300 MG capsule Take 300 mg by mouth 2 (two) times daily. ??? HYDROcodone-acetaminophen (NORCO) 10-325 MG tablet Take 1 tablet by mouth every 6 (six) hours as needed for Pain. ??? LORazepam (ATIVAN) 1 MG tablet Take 1 mg by mouth 2 (two) times daily as needed for Anxiety. ??? morphine (MSIR) 15 MG tablet Take 30 mg by mouth every 8 (eight) hours as needed. Indications: Chronic Pain ??? traZODone (DESYREL) 100 MG tablet Take 100 mg by mouth nightly at bedtime. ??? albuterol sulfate HFA 108 (90 Base) MCG/ACT inhaler INHALE 1 PUFF BY MOUTH EVERY 4 HOURS NEEDED FOR WHEEZING OR SHORTNESS OF BREATH ??? benzonatate (TESSALON) 200 MG capsule TAKE 1 CAPSULE BY MOUTH TWICE A DAY NEEDED FOR COUGH ??? FLUoxetine (PROZAC) 20 MG capsule ??? fluticasone propionate (FLONASE) 50 MCG/ACT nasal spray INSTILL 1 SPRAY IN EACH NOSTRIL DAILY ??? VASCEPA 1 g capsule Take 2 g by mouth 2 (two) times daily. Physical Exam: Vitals: 07/26/22 0800 BP: 110/63 Pulse: 65 Resp: 12 Temp: 97.6 ??F (36.4 ??C) SpO2: 91% Gen: adult in NAD HEENT: normocephalic, atraumatic. Extraocular movements intact. Neck soft, supple. Normal hearing CV: RRR. Resp: On 10 L nasal cannula, no increased work of breathing, symmetric chest rise Abdom: Soft, nontender, nondistended : Deferred MSK: moves all extremities equally Pulse: palpable radial pulses bilaterally Integ: skin warm, dry, no erythema Neuro: AAOx3, no focal deficits Psych: appropriate mood and affect Diagnostic Data: Labs: Recent Labs Lab 07/25/22 1416 07/26/22 0238 NA 137 135* K 3.4* 4.5 CL 106 105 CO2 24.7 26.8 AGAP 6.3 3.2* BUN 17 15 CR 0.57* 0.66* GLU 85 137* CA 7.8* 8.1* Recent Labs Lab 07/26/22 0238 WBC 17.5* RBC 2.26* HGB 7.6* HCT 22.9* MCV 101.3* MCH 33.6* MCHC 33.2 PLT 283 RDW 13.8 MPV 10.6* NEUC 16.80* LYMC 0.53* MONOC 0.18 EOSC 0.00 BASOC 0.00 Recent Labs Lab 07/25/22 1723 INR 1.3* Imaging: CTA chest IMPRESSION: 1. Air-fluid level within loculated fluid collection in the right posterior pleural cavity related to loculated hydropneumothorax, empyema or abscess versus bronchopleural fistula. Please correlate clinically. 2. Loculated pleural fluid in the posterior medial and posterolateral aspect of the right lower chest. Very small left pleural effusion. 3. Loculated pleural effusion adjacent to the right heart border or less likely loculated pericardial effusion. 4. Patchy areas of atelectasis versus infiltrate bilaterally in the lungs, greatest in the lower lobes and in the left upper lobe as noted above. Please correlate clinically for atypical pneumonia. A/P: 67-year-old male with right-sided parapneumonic pleural effusion. CT scan was reviewed and given the small size of the pleural effusion, we do not think that this is the cause of his respiratory failure and COPD exacerbation seems more likely. Recommend continuing antibiotics and treatment of COPD exacerbation. Can consult IR tomorrow to see if they can place a chest tube in the effusion and possible tPA/DNase to help break up the loculations. CT surgery will continue to follow. Attending: Dr. Alexey Wetzel MD 07/26/2022 Staff: Cosigned by Ross Blackburn MD at 07/27/2022 6:52 AM THERAPEUTIC SPECIALIST APEUTIC SPECIALIST APEUTIC SPECIALIST * Michaelle Nielsen MD - 07/26/2022 11:23 AM CSTSummary: [facility] ID Consult Note [facility] INFECTIOUS DISEASE CONSULT NOTE Consulting Provider: Attending Provider: Florencio Amaya MD PCP: GRACIELA LEIGH MD Reason for Consultation: Loculated pleural effusions, Pneumonia History of Present Illness: Ray Phillips is a 67-year-old male with medical history of chronic tobacco use who was transferred from [facility] near [place] for treatment resistant pneumonia and loculated pleural effusions. Prior to hospitalization, patient had 1 week of daily hemoptysis, shortness of breath, and right sided lower chest pain. Reports the hemoptysis was about the size of a silver dollar. He had hemoptysis about one year ago, but it resolved spontaneously without medical intervention. He went to [facility] where he was diagnosed with pneumonia. He was started on antibiotics. Further imaging was concerning for loculated pleural effusions and possible malignancy according the patient. He was transferred to [facility] for further care. He was placed on HFNC on arrival, requiring at least 10L. He was found to have a leukocytosis of 17.5 with an elevated ESR and CRP. He was placed on Vancomycin, Cefepime, and Azithromycin. Blood cultures have been negative within the first 24 hours. HIV testing negative. Pending COVID, mycoplasma, MRSA, legionella, strep pneumo, and sputum cultures. CTA Chest/Abd/Pelvis concerning for right sidedloculated effusions and air fluid level seen. Pending thoracentisis with IR. Today, the patient complaining of shortness of breath and right sided chest pain. He reports no unintentional weight loss and his weight has been stable for the past several years. No night sweats, fevers, or chills. had COVID 3 weeks ago, but he tested negative at home. 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 50 pack year history of smoking. No prior exposures to prisons, homeless shelters, health care centers, or care facilities. Currently denies fevers, chills, headaches, numbness, tingling, visual changes, abdominal pain, nausea, or vomiting. Review of Systems Constitutional: No fever, No chills. Eye: No blurry vision. No photophobia. Ear/Nose/Mouth/Throat: No nasal congestion, No sore throat. Respiratory: Chortness of breath, Cough. Cardiovascular: Chest pain. No palpitations. Gastrointestinal: No nausea, No vomiting, No abdominal pain. Genitourinary: No dysuria, No hematuria. Hematology/Lymphatics: No abnormal bruising or bleeding tendency. Endocrine: No excessive thirst, No polyuria Musculoskeletal: Back pain, No neck pain. Integumentary: No rash, No pruritus. Neurologic: No numbness, No tingling, No headache. Histories: Past Medical History: Diagnosis Date ??? Chronic back pain Allergies Allergen Reactions ??? Motrin [Ibuprofen] Shortness of Breath ??? Nsaids Shortness of Breath and GI Upset ??? Prednisone Shortness of Breath History reviewed. No pertinent surgical history. Family History Problem Relation Name Age of Onset ??? Heart Disease Father Social History Socioeconomic History ??? Marital status: Tobacco Use ??? Smoking status: Former Packs/day: 0.50 Years: 50.00 Pack years: 25.00 Types: Cigarettes ??? Smokeless tobacco: Never Substance and Sexual Activity ??? Alcohol use: Not Currently OBJECTIVE Vitals: 07/26/22 0800 BP: 110/63 Pulse: 65 Resp: 12 Temp: 97.6 ??F (36.4 ??C) SpO2: 91% Physical Exam General: Alert and oriented, No acute distress Eye: Extraocular movements are intact, Normal conjunctiva, No scleral icterus. HENT: Normocephalic, Oral mucosa is moist. Neck: Supple, Trachea midline, No jugular venous distention. Respiratory: Rales auscultated in right lower lobe, Respirations are mildly labored, Symmetrical chest wall expansion. Cardiovascular: Normal rate, Regular rhythm, No edema. Gastrointestinal: Soft, Non-tender, Non-distended, Normal bowel sounds Musculoskeletal: Normal range of motion. Normal Strength. Integumentary: Warm and dry, No rash. Neurologic: Alert and oriented, No focal defects. Psychiatric: Cooperative, Appropriate mood & affect. Laboratory Studies CBC Recent Labs Lab 07/26/22 0238 WBC 17.5* RBC 2.26* HGB 7.6* HCT 22.9* MCV 101.3* MCH 33.6* MCHC 33.2 PLT 283 RDW 13.8 MPV 10.6* NEUC 16.80* LYMC 0.53* MONOC 0.18 EOSC 0.00 BASOC 0.00 CMP Recent Labs 07/25/22 1416 07/26/22 0238 ALT 23 20 AST 23 19 CO2 24.7 26.8 CL 106 105 GLU 85 137* K 3.4* 4.5 NA 137 135* BUN 17 15 Scheduled Medications ??? azithromycin 500 mg Intravenous Q24H ??? cefepime 2 g Intravenous Q12H ??? FLUoxetine 20 mg Oral Daily ??? gabapentin 300 mg Oral BID ??? influenza 0.5 mL Intramuscular Once ??? ipratropium-albuterol 3 mL Nebulization Q4H ??? lidocaine-EPINEPHrine 20 mL Intradermal Once ??? methylPREDNISolone 62.5 mg Intravenous Q12H ??? traZODone 100 mg Oral Nightly at bedtime ??? vancomycin 1,250 mg Intravenous Q12H ??? vancomycin pharmacy to dose Intravenous See Admin Instructions Infectious Evaluation Summary BUN Date Value Ref Range Status 07/26/2022 15 7 - 18 MG/DL Final 07/25/2022 17 7 - 18 MG/DL Final CREATININE S/P/B Date Value Ref Range Status 07/26/2022 0.66 (L) 0.70 - 1.30 MG/DL Final 07/25/2022 0.57 (L) 0.70 - 1.30 MG/DL Final WBC Date Value Ref Range Status 07/26/2022 17.5 (H) 4.0 - 10.8 x10'3/uL Final 07/25/2022 17.6 (H) 4.0 - 10.8 x10'3/uL Final Drug Monitoring No results found for: VANT CREATININE S/P/B Date Value Ref Range Status 07/26/2022 0.66 (L) 0.70 - 1.30 MG/DL Final estimated creatinine clearance is 97.1 mL/min (A) (based on SCr of 0.66 mg/dL (L)). No results found for: CPK Labs BUN 15 SCr 0.66 WBC 17.5 Images Radiology Results (Last 30 days) 07/26/22 0655 XR CHEST PORTABLE Final result Impression: IMPRESSION: Loculated effusion on the right. Bilateral pulmonary opacifications due to atelectasis or infiltrate greatest in the right lower lung and throughout the left lung. Left effusion. Referred By: PROVIDER NON-STAFF Interpreted By: Rudy Montaño MD, 07/26/2022 7:27 AM 07/26/22 0032 CTA CHEST+ABD+PEL Final result Impression: IMPRESSION: 1. Air-fluid level within loculated fluid collection in the right posterior pleural cavity related to loculated hydropneumothorax, empyema or abscess versus bronchopleural fistula. Please correlate clinically. 2. Loculated pleural fluid in the posterior medial and posterolateral aspect of the right lower chest. Very small left pleural effusion. 3. Loculated pleural effusion adjacent to the right heart border or less likely loculated pericardial effusion. 4. Patchy areas of atelectasis versus infiltrate bilaterally in the lungs, greatest in the lower lobes and in the left upper lobe as noted above. Please correlate clinically for atypical pneumonia. 5. At least 3 hypodense lesions in the spleen with the largest 1.8 cm. Recommend correlation with ultrasound of the spleen for further evaluation. 6. Slight surface nodularity of the liver; please correlate clinically for possible cirrhosis of the liver. 7. Please see the CT lumbar spine exam of 08/22/2021 regarding postoperative and other chronic findings involving the lumbar spine with chronic compression deformity of anterior L3 vertebral body. 8. Increased density in the gallbladder concerning for gallstones. Dilated common duct measuring up to 1.5 cm. Recommend right upper quadrant ultrasound exam for further evaluation. 9. Small hiatal hernia. 10. Please see above report for the other findings. This CT exam was performed using one or more of the following dose reduction techniques: automated exposure control, adjustment of the mA and/or kV according to patient size, and/or use of iterative reconstruction's technique. Referred By: PROVIDER NON-STAFF Interpreted By: Karine Sher MD, 07/26/2022 12:56 AM Micro 07/25 Blood Culture x2 : NTD 07/25 Sputum Culture : Pending 07/25 MRSA PCR: Pending 07/25 COVID-19: Pending 07/25 Strep Pneumo: Pending 07/25 Legionella: Pending 07/26 Mycoplasma: Pending 07/26 HIV Ab: Negative 07/26 Histoplasmosis: Pending 07/26 Blastomycosis: Pending Antimicrobial Regimen Unknown Abx regiment at [facility] Vancomycin IV 1.25g every 24h(07/25 - present) Cefepime IV 2g every 12h(07/25 - present) Azithromycin IV 500mg every 24 hours (07/25 - present) ASSESSMENT AND PLAN Ray Phillips is a 67-year-old male with medical history of chronic tobacco use who was transferred from [facility] near [place] for treatment resistant pneumonia and loculated pleural effusions. Imaging andhistory concerning for infection vs. Malignancy. Currently on Vancomycin, Cefepime, and Azithromycin. Continue current antibiotics and ordering fungal studies for further evaluation. Recommend Pulmonology and CTS consults for further evaluation and intervention. [facility] has been consulted for antibiotic management of necrotizing pneumonia and loculated effusions. Diagnoses: Acute Hypoxic Respiratory Failure 2/2 Pneumonia vs. Loculated Effusions Community Acquire Pneumonia, bacterial vs. Fungal Loculated Pleural Effusions Air-Fluid level on imaging concerning for hydropneumothorax, empyema, or fistula Possible COPD Anemia History of Asbestos exposure [facility] Infectious Disease Team Recommendations -Patient seen this am with history, labs/cultures, imaging, and antibiotics reviewed as above -Continue Vancomycin (per pharmacy dosing), Cefepime, and Azithromycin -Agree with CTS and Pulmonology consults for further evaluation -Urine and blood histo/blasto with immunodiffusions ordered for evaluation of fungal etiologies. -Plan to deescalate antibiotics pending culture results -Plan as above discussed with patient, all voiced questions/concerns addressed, voices agreement and understanding with plan. Thank you for the consultation and for the opportunity to assist in the care of this patient. [facility] will continue to follow. Please feel free to contact us with regards to any questions or concerns. Sergio Raza MD [facility] Infectious Disease 07/26/2022j Patient seen and examined with resident, medical record and pertinent laboratory and radiographic studies independently reviewed, agree with the above. APEUTIC SPECIALIST APEUTIC SPECIALIST APEUTIC SPECIALIST * Patel Kelsey MD - 07/26/2022 11:12 AM CST [facility] PULMONOLOGY CONSULT NOTE Attending Provider: Florencio Amaya MD PCP: GRACIELA LEIGH MD Reason for Admission: Respiratory failure ([facility]) Reason for Consult: Respiratory failure, necrotizing pneumonia, possible loculated effusion - empyema or abscess vs bronchopleural fistula ASSESSMENT/PLAN Ray Phillips is a 67-year-old male, with history of chronic back pain, 50-pk year history smoking who presented with worsening shortness of breath over 2-[address] imaging concerning for loculated fluid collection in right posterior pleural cavity - pneumonia vs empyema or abscess vs bronchopleural fistula. Concern for malignancy as well given history of asbestos exposure, smoking history, and family history of lung cancer. Currently requiring 8-10L nasal cannula. [facility] ID and CT surgery as consulting services as well. [facility] Pulmonology consulted for above. Problem List: Acute hypoxic respiratory failure Probable COPD? Necrotizing pneumonia of right lower lobe Loculated right pleural effusion Possible Pulmonary edema Small pericardial effusion Splenomegaly Acute blood loss anemia? Hypokalemia requiring monitoring and treatment Chronic back pain Anxiety/depression History of tobacco abuse Chronic compression fracture of L3 Lumbar spondylosis History of back trauma Pericardial effusion Active workup: CT imaging reviewed. 07/26 - Labs reviewed, Hgb 7.6, WBC 17.5 [facility] Pulmonology Plan/ Recommendations: - Noted CT surgery with plans for possible chest tube placement, will follow cultures - Continue to wean oxygen, weaned in room from 10L to 7L satting 96-98% - will consider bronchoscopy possibly Saturday if able to wean oxygen further. If any plans for VATS or surgical management will coordinate with CT surgery to perform bronchoscopy at that time. Will follow up on CT surgery plans. - Will order procalcitonin - Antibiotics per ID - currently on vanc, cefepime, azithromycin - Will decrease steroids from 62.5mg BID to QD - Rest of care per primary team Thank you for the consult. We will continue to follow. Patel Kelsey MD 07/26/2022 HPI Ray Phillips is a 67-year-old male, with history of chronic back pain, 50-pk year history smoking who presented with worsening shortness of breath over 2-[address] imaging concerning for loculated fluid collection in right posterior pleural cavity - pneumonia vs empyema or abscess vs bronchopleural fistula. Concern for malignancy as well given history of asbestos exposure, smoking history, and family history of lung cancer. Currently requiring 8-10L nasal cannula. [facility] ID and CT surgery as consulting services as well. Ray states he had chronic dull right sided chest pain for a long period of time now. Over the past 2-3 weeks this pain has worsened, located lower down on right side of ribcage. He takes morphine sulfate and gabapentin at home for his chronic back pain. This helped relieve the pain. About 2 weeksago he had some hemoptysis and sputum production with yellow color, thick. He no longer has hemoptysis at this time and has minimal sputum production, clear. He has chills at nighttime. He reports noweight loss and states he fluctuates from 150-160lbs, currently 150lbs. He has had low appetite andfatigue/low energy during this time frame as well. Presented to [facility] last Saturday and started on antibiotics, CT imaging done and showed what was noted above. Transferred to [facility] for further treatment. He is currently on antibiotics and steroids. He has history of smoking 1ppd for past 50 years. Never had lung cancer screening in past. Follows in [place], [place]. He quit smoking 1.5 weeks ago. He has brother with lung cancer. His mother and two sisters also had unknown cancer type. 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 He states he wore protective gear at that time. Travel to [place] in past 6 months, no other travel history. Worked as a [employer] prior to that. Review of Systems Constitutional: Negative for chills and fever. Respiratory: Positive for cough, sputum production and shortness of breath. Negative for hemoptysisand wheezing. Cardiovascular: Negative for chest pain and palpitations. Gastrointestinal: Negative for heartburn, nausea and vomiting. Genitourinary: Negative for dysuria, frequency and urgency. Skin: Negative for rash. Neurological: Negative for dizziness and headaches. Psychiatric/Behavioral: Negative for depression. Medications: ??? azithromycin 500 mg Intravenous Q24H ??? cefepime 2 g Intravenous Q12H ??? FLUoxetine 20 mg Oral Daily ??? gabapentin 300 mg Oral BID ??? influenza 0.5 mL Intramuscular Once ??? ipratropium-albuterol 3 mL Nebulization Q4H ??? lidocaine-EPINEPHrine 20 mL Intradermal Once ??? methylPREDNISolone 62.5 mg Intravenous Q12H ??? traZODone 100 mg Oral Nightly at bedtime ??? vancomycin 1,250 mg Intravenous Q12H ??? vancomycin pharmacy to dose Intravenous See Admin Instructions PRN: acetaminophen, albuterol sulfate HFA, cyclobenzaprine, HYDROcodone- acetaminophen, LORazepam, morphine, ondansetron, sodium chloride No current facility-administered medications on file prior to encounter. Current Outpatient Medications on File Prior to Encounter Medication Sig ??? cyclobenzaprine (FLEXERIL) 10 MG tablet Take 10 mg by mouth 3 (three) times daily as needed forMuscle Spasms. ??? FLUoxetine (PROZAC) 10 MG tablet Take 20 mg by mouth daily. ??? gabapentin (NEURONTIN) 300 MG capsule Take 300 mg by mouth 2 (two) times daily. ??? HYDROcodone-acetaminophen (NORCO) 10-325 MG tablet Take 1 tablet by mouth every 6 (six) hours as needed for Pain. ??? LORazepam (ATIVAN) 1 MG tablet Take 1 mg by mouth 2 (two) times daily as needed for Anxiety. ??? morphine (MSIR) 15 MG tablet Take 30 mg by mouth every 8 (eight) hours as needed. Indications: Chronic Pain ??? traZODone (DESYREL) 100 MG tablet Take 100 mg by mouth nightly at bedtime. ??? albuterol sulfate HFA 108 (90 Base) MCG/ACT inhaler INHALE 1 PUFF BY MOUTH EVERY 4 HOURS NEEDED FOR WHEEZING OR SHORTNESS OF BREATH ??? benzonatate (TESSALON) 200 MG capsule TAKE 1 CAPSULE BY MOUTH TWICE A DAY NEEDED FOR COUGH ??? FLUoxetine (PROZAC) 20 MG capsule ??? fluticasone propionate (FLONASE) 50 MCG/ACT nasal spray INSTILL 1 SPRAY IN EACH NOSTRIL DAILY ??? VASCEPA 1 g capsule Take 2 g by mouth 2 (two) times daily. Allergies Allergen Reactions ??? Motrin [Ibuprofen] Shortness of Breath ??? Nsaids Shortness of Breath and GI Upset ??? Prednisone Shortness of Breath Past Medical History: Diagnosis Date ??? Chronic back pain Social History Tobacco Use ??? Smoking status: Former Packs/day: 0.50 Years: 50.00 Pack years: 25.00 Types: Cigarettes ??? Smokeless tobacco: Never Substance Use Topics ??? Alcohol use: Not Currently History reviewed. No pertinent surgical history. Family History Problem Relation Name Age of Onset ??? Heart Disease Father OBJECTIVE Vitals: Filed Vitals: 07/25/22 2025 07/26/22 0031 07/26/22 0400 07/26/22 0800 BP: 131/87 125/85 118/87 110/63 Pulse: 90 79 73 65 Resp: 27 19 16 12 Temp: 98.7 ??F (37.1 ??C) 98.7 ??F (37.1 ??C) 98.8 ??F (37.1 ??C) 97.6 ??F (36.4 ??C) TempSrc: Oral Oral Axillary SpO2: 91% 98% 93% 91% Weight: Height: Physical Exam Constitutional: General: He is not in acute distress. Appearance: Normal appearance. He is normal weight. HENT: Head: Normocephalic and atraumatic. Mouth/Throat: Mouth: Mucous membranes are moist. Eyes: General: No scleral icterus. Extraocular Movements: Extraocular movements intact. Conjunctiva/sclera: Conjunctivae normal. Pupils: Pupils are equal, round, and reactive to light. Cardiovascular: Rate and Rhythm: Normal rate and regular rhythm. Pulses: Normal pulses. Heart sounds: Normal heart sounds. No murmur heard. Pulmonary: Effort: Pulmonary effort is normal. No respiratory distress. Breath sounds: No wheezing. Comments: On 10L, breathing comfortably, right basilar rales, and decreased air entry over right lower lobe. Dullness to percussion over right base. Abdominal: General: Bowel sounds are normal. There is no distension. Palpations: Abdomen is soft. Tenderness: There is no abdominal tenderness. There is no guarding. Musculoskeletal: General: No tenderness. Skin: General: Skin is warm and dry. Coloration: Skin is not jaundiced. Neurological: General: No focal deficit present. Mental Status: He is alert and oriented to person, place, and time. Cranial Nerves: No cranial nerve deficit. Psychiatric: Mood and Affect: Mood normal. Behavior: Behavior normal. Intake/Output Summary (Last 24 hours) at 07/26/2022 1112 Last data filed at 07/26/2022 0800 Gross per 24 hour Intake 250 ml Output 2550 ml Net -2300 ml Labs: Recent Labs Lab 07/25/22 1416 07/25/22 1723 07/25/22205507/26/22 0238 WBC 17.6* -- -- 17.5* RBC 2.07* -- -- 2.26* HGB 7.0* 8.1* 7.5* 7.6* HCT 21.0* 24.4* 23.2* 22.9* MCV 101.4* -- -- 101.3* MCH 33.8* -- -- 33.6* MCHC 33.3 -- -- 33.2 PLT 260 -- -- 283 RDW 13.6 -- -- 13.8 NEUC 14.78* -- -- 16.80* [facility] 2.29 -- -- 0.53* MONOC 0.53 -- -- 0.18 EOSC 0.00 -- -- 0.00 BASOC 0.00 -- -- 0.00 Recent Labs Lab 07/25/22 1416 07/26/22 0238 NA 137 135* K 3.4* 4.5 CL 106 105 CO2 24.7 26.8 BUN 17 15 CR 0.57* 0.66* GLU 85 137* CA 7.8* 8.1* TP 5.3* 5.3* ALB 1.5* 1.5* TBIL 0.3 0.2 ALKP 61 60 AST 23 19 ALT 23 20 Recent Imaging: Radiology Results (Last 48 hours) 07/26/22 0655 XR CHEST PORTABLE Final result Impression: IMPRESSION: Loculated effusion on the right. Bilateral pulmonary opacifications due to atelectasis or infiltrate greatest in the right lower lung and throughout the left lung. Left effusion. Referred By: PROVIDER NON-STAFF Interpreted By: Rudy Montaño MD, 07/26/2022 7:27 AM 07/26/22 0032 CTA CHEST+ABD+PEL Final result Impression: IMPRESSION: 1. Air-fluid level within loculated fluid collection in the right posterior pleural cavity related to loculated hydropneumothorax, empyema or abscess versus bronchopleural fistula. Please correlate clinically. 2. Loculated pleural fluid in the posterior medial and posterolateral aspect of the right lower chest. Very small left pleural effusion. 3. Loculated pleural effusion adjacent to the right heart border or less likely loculated pericardial effusion. 4. Patchy areas of atelectasis versus infiltrate bilaterally in the lungs, greatest in the lower lobes and in the left upper lobe as noted above. Please correlate clinically for atypical pneumonia. 5. At least 3 hypodense lesions in the spleen with the largest 1.8 cm. Recommend correlation with ultrasound of the spleen for further evaluation. 6. Slight surface nodularity of the liver; please correlate clinically for possible cirrhosis of the liver. 7. Please see the CT lumbar spine exam of 08/22/2021 regarding postoperative and other chronic findings involving the lumbar spine with chronic compression deformity of anterior L3 vertebral body. 8. Increased density in the gallbladder concerning for gallstones. Dilated common duct measuring up to 1.5 cm. Recommend right upper quadrant ultrasound exam for further evaluation. 9. Small hiatal hernia. 10. Please see above report for the other findings. This CT exam was performed using one or more of the following dose reduction techniques: automated exposure control, adjustment of the mA and/or kV according to patient size, and/or use of iterative reconstruction's technique. Referred By: PROVIDER NON-STAFF Interpreted By: Karine Sher MD, 07/26/2022 12:56 AM Cosigned by Patti Pineda MD at 07/26/2022 12:41 PM THERAPEUTIC SPECIALIST APEUTIC SPECIALIST APEUTIC SPECIALIST Associated attestation - Patti Pineda MD - 07/26/2022 12:41 PM THERAPEUTIC SPECIALIST IKenisha MD, I was asked to see per Dr Amaya, I rounded with RT, nurses, and pulmonary team, I personally saw and examined this patient and discussed the case with the residents. I have reviewed the resident note and agree with the content and plan as written unless otherwise modified or corrected by me. I have reviewed the patients past medical, family, and social history, medication record and pertinent laboratory and radiology reports. I was present at bedside for the management. He has smoking history for 50 years, and asbestos exposure for 10 years back in 1996, presented with Acute respiratory failure, shortness of breath over 2-[address] imaging concerning for loculated fluid collection in right posterior pleural cavity, necrotizingpneumonia vs abscess vs bronchopleural fistula. Concern for malignancy as well given history of asbestos exposure, smoking history no previous low dose CT, last CT was in 2012 for right shoulder, family history of lung cancer. Currently requiring 8-10 L nasal cannula. Seen by [facility] ID on broad coverage antibiotics, needs fungal serology, alsoe seen by CT surgery for drainage, COPD exacerbation on BD nebs, weaning down Solumedrol, he will need bronchoscopy BAL to RLL if no results from fluid analysis or sputum, he is at very high risk due to being on oxygen 8-10 L/m, if gets worse will need to tr ansfer to ICU, discussed with ID and hospitalist GI DVT prophylaxis and rest of medical management per PCP. Patient seen and evaluated frequently during the course of the day, discussed current laboratory and radiographic data as well as plan of care, patient in agreement with above. documented in this encounter Nursing Notes * Nan Gomez RN - 07/26/2022 3:58 AM CST Pt outlying report had Hx as including bladder cancer, multi compression fx ( post op), Degenerative joint disease (DJD), 50+ year smoker 1/2 pack a day. Pt stated his R arm scar from brown recluse spider bite. APEUTIC SPECIALIST * Charlene Crow RN - 07/25/2022 6:44 PM CSTSummary: Midline placement attempts Called to place midline. Spoke with patient and explained procedure. Consent signed. Left basilic vein was visualized with ultrasound. Arm was prepped and draped in sterile fashion. Three attempts made to the basilic vein. Each time was able to cannulate vein but was unable to advance guidewire. Switched to left brachial vein. Same thing happened. Cannulated vein easily and was not able to advance guidewire. Switched to the right arm. Patient only had a brachial vein visible. Prepped arm and draped in sterile fasion. Cannulated vein first attempt with no issues and was yet again unable to advance guidewire. Pt has no other veins to attempt at this time. Will speak with nurse about further options. APEUTIC SPECIALIST documented in this encounter OR Notes * Brief Op Note - JOSEPH Whitehead - 08/02/2022 9:28 AM CST HS Brief Op HSHSTHORACOSCOPY (VATS) WITH RIGHT DECORICATION Procedure Note Ray Phillips 08/02/2022 0730 Procedure(s) (LRB): THORACOSCOPY (VATS) WITH RIGHT DECORICATION (Right) Surgeon(s): Ross Blackburn MD Combine Inspector: Wallet Assembler: JOSEPH Whitehead Anesthesia: General Pre-Op Diagnosis: PLEURAL EFFUSION Post-Op Diagnosis: Same Findings: See dictated op note Estimated Blood Loss: Minimal Specimens: ID Type Source Tests Collected by Time 1 : right decortication tissue TISSUE OTHER (type in comments) CULTURE, ANAEROBIC, CULTURE TB/AFB OTHER, CULTURE, FUNGUS, CULTURE, TISSUE W/GRAM STAIN Ross Blackburn MD 08/02/2022 0838 A : right decortication tissue TISSUE OTHER (type in comments) PATHOLOGY Ross Blackburn MD 08/02/2022 0703 JOSEPH Whitehead Date: 08/02/2022 Time: 9:28 AM Cosigned by Ross Blackburn MD at 08/03/2022 11:37 AM THERAPEUTIC SPECIALIST APEUTIC SPECIALIST APEUTIC SPECIALIST * Op Note - Ross Blackburn MD - 08/02/2022 12:00 AM CST PREOPERATIVE DIAGNOSES: Trapped lung, empyema, loculated pleural effusion, pneumonia. POSTOPERATIVE DIAGNOSES: Trapped lung, empyema, loculated pleural effusion, pneumonia. PROCEDURES: Bronchoscopy, right thoracoscopy, decortication of the lung, multilevel intercostal nerve block. SURGEON: Ross Blackburn MD SHIPPING ORDER CLERK: JOSEPH Flower TYPE OF ANESTHESIA: General. INDICATIONS: The patient has been in the hospital in IR2 with the parapneumonic empyema and trappedlung. Findings consistent with the preoperative evaluation. A large amount of debris, cottage cheese-like debris with trapped lung of the lower lobe. All the loculations freed up. The lung was decorticated, looked as it would expand. DESCRIPTION OF PROCEDURE: The patient under adequate general endotracheal anesthesia, initially bronchoscopy was performed and a bronchial tree was free of any obstructing lesions, particularly in the lower lobe. It was removed with double-lumen endotracheal tube in place in full lateral position. Two 10 mm ports were placed through which a 30-degree rigid scope was introduced. There was a large amount of adhesions and loculations that were taken down. Pleural fluid and debris were removed withsuction and ring forceps. The peel and adhesions over the lower lobe were taken down as much as possible and then was freed up except for the lower lobe adherent to the diaphragm in some areas, it was irrigated out copiously, 0.25% Marcaine was used to create a multilevel intercostal nerve block. X73-Awertg chest tube was placed and the lung was reexpanded. The trocar sites injected with 0.25% Marcaine and closed including subcuticular skin stitches. Sterile dressings applied. Tolerated well without complication. Noted at completion of procedure, all counts were correct. #[id number] /REG/YAYA/CELESTINA APEUTIC SPECIALIST * Brief Op Note - Raul Osuna MD - 07/27/2022 12:11 PM CST PROCEDURE: CT-guided right thoracostomy tube placement Indication: Necrotizing pneumonia with loculated hydropneumothorax Physicians: Raul Osuna M.D. (attending); Rodney Nolasco M.D. (resident) Following informed consent, including discussion of procedural risks, the patient was place in the left lateral decubitus position on the CT table and Cadott protocol was observed to verify correct patient, site, and procedure to be performed. Preliminary CT images were obtained through the region of interest. A safe anterior intercostal path of approach to the loculated right hydropneumothorax was chosen . Suitable skin site was marked. The site was prepped and draped in sterile fashion using maximum sterile barrier techniques. Local anesthesia was achieved using buffered 1% lidocaine, and a small dermatotomy was created. Under intermittent CT guidance, a one-step sheath needle was placed into the pleural collection with return of minimal panbrown fluid. Position was also confirmed by CT. The tract was dilated to 12 German. Duringdilation, there was temporary retraction of the wire resulting in slight kinking and difficulty advancing the tube. Access was again regained using the one-step sheath needle, followed again by CT confirmation of position, wire placement, and tract dilation. A 12-step pigtail drainage catheter withthe locking stitch removed was advanced into the right pleural space. Position was confirmed by CT.Aspiration yielded approximately 20 mL 10 cloudy fluid as well as gas. External portion of the tube was secured with an interrupted 2-0 Ethilon suture and stay fix device. The tube was connected to aPleur-evac system. 2 mg TPA in 20 mL sterile saline were demonstrated through the tube into the pleural space, and the stopcock was then placed in a closed position to allow a 4 hour TPA 12 time. A sterile dressing was applied. There were no immediate complications. Medications: IV analgesia utilizing 50 mcg fentanyl EBL: <10 mL A dose lowering technique was used for this procedure, which may include, but is not limited to, dose reduction technique, automated exposure control, the use of iterative reconstruction, and ALARA (As Low As Reasonably Achievable) / Image Gently techniques. IMPRESSION: Successful CT-guided right thoracostomy tube placement as described. The stopcock will initially beleft in the closed position for fibrinolytic 4 hour dwell time. The tube will then be placed to lowwall suction. Output and serial radiographs will be monitored to determine further management. APEUTIC SPECIALIST documented in this encounter Plan of Treatment Pending Results Name Type Priority Associated Diagnoses Date /Time USV VAST TEAM MIDLINE INSERT >5YR US VASC STAT 07/25/2022 5:18 PM THERAPEUTIC SPECIALIST Scheduled Orders Name Type Priority Associated Diagnoses Orde r Schedule USV VAST TEAM MIDLINE INSERT >5YR US VASC STAT One time imaging One time imaging for 1 Occurrences starting 07/25/2022 until 07/25/2022 documented as of this encounter Goals Goal Patient Goal Type Associated Problems Recent Progress Patient-Stated? Author Family - family caregiver with be involved in care transitions and discharge planning Lifestyle Angela Pena, VISUALIZER documented as of this encounter Procedures Procedure Name Priority Date/Time Associated Diagnosis Comments XR CHEST PA OR AP 1V Today 08/08/2022 5:37 AM THERAPEUTIC SPECIALIST COMPREHENSIVE METABOLIC PANEL Routine 08/08/2022 2:22 AM THERAPEUTIC SPECIALIST CBC W/DIFF AUTOMATED Routine 08/08/2022 2:22 AM THERAPEUTIC SPECIALIST HEMOGLOBIN AND HEMATOCRIT STAT 08/07/2022 10:12 AM THERAPEUTIC SPECIALIST XR CHEST PA OR AP 1V Today 08/07/2022 5:57 AM THERAPEUTIC SPECIALIST HOME O2 EVAL Routine 08/06/2022 12:48 PM THERAPEUTIC SPECIALIST XR CHEST PA OR AP 1V Today 08/06/2022 5:28 AM THERAPEUTIC SPECIALIST COMPREHENSIVE METABOLIC PANEL Routine 08/06/2022 4:27 AM THERAPEUTIC SPECIALIST CBC W/DIFF AUTOMATED Routine 08/06/2022 4:27 AM THERAPEUTIC SPECIALIST VANCOMYCIN TIMED 08/06/2022 4:27 AM THERAPEUTIC SPECIALIST HOME O2 EVAL Routine 08/05/2022 2:41 PM THERAPEUTIC SPECIALIST TYPE & SCREEN Routine 08/05/2022 10:53 AM THERAPEUTIC SPECIALIST XR CHEST PA OR AP 1V Today 08/05/2022 5:52 AM THERAPEUTIC SPECIALIST COMPREHENSIVE METABOLIC PANEL Routine 08/05/2022 2:11 AM THERAPEUTIC SPECIALIST CBC W/DIFF AUTOMATED Routine 08/05/2022 2:[address] CHEST WO CON Today 08/04/2022 3:22 PM THERAPEUTIC SPECIALIST XR CHEST PA OR AP 1V Today 08/04/2022 5:27 AM THERAPEUTIC SPECIALIST COMPREHENSIVE METABOLIC PANEL Routine 08/04/2022 2:34 AM THERAPEUTIC SPECIALIST CBC W/DIFF AUTOMATED Routine 08/04/2022 2:34 AM THERAPEUTIC SPECIALIST XR CHEST PA OR AP 1V Today 08/03/2022 5:50 AM THERAPEUTIC SPECIALIST COMPREHENSIVE METABOLIC PANEL Routine 08/03/2022 2:22 AM THERAPEUTIC SPECIALIST CBC W/DIFF AUTOMATED Routine 08/03/2022 2:22 AM THERAPEUTIC SPECIALIST XR CHEST PORTABLE STAT 08/02/2022 9:5 8 AM THERAPEUTIC SPECIALIST CULTURE, TISSUE W/GRAM STAIN Nurse Collected Priority 08/02/2022 8:38 AM THERAPEUTIC SPECIALIST CULTURE, FUNGUS Nurse Collected Priority 08/02/2022 8:38 AM THERAPEUTIC SPECIALIST CULTURE TB/AFB OTHER Routine 08/02/2022 8:38 AM THERAPEUTIC SPECIALIST HC SMEAR ACID FAST/FLUOR-90 Routine 08/02/2022 8:38 AM THERAPEUTIC SPECIALIST CULTURE, ANAEROBIC Nurse Collected Priority 08/02/2022 8:38 AM THERAPEUTIC SPECIALIST THORACOSCOPY W DIAGNOSITC BIOPSY OF LUNG INFILTRATES 08/02/2022 7:13 AM THERAPEUTIC SPECIALIST PLEURAL EFFUSION Case Notes PATHOLOGY Routine 08/02/2022 7:03 AM THERAPEUTIC SPECIALIST TYPE & SCREEN Routine 08/01/2022 11:11 PM THERAPEUTIC SPECIALIST BMP WITHOUT GLUCOSE TIMED 08/01/2022 1 1:31 AM THERAPEUTIC SPECIALIST VANCOMYCIN TIMED 08/01/2022 11:31 AM THERAPEUTIC SPECIALIST COMPREHENSIVE METABOLIC PANEL Routine 08/01/2022 2:42 AM THERAPEUTIC SPECIALIST CBC W/DIFF AUTOMATED Routine 08/01/2022 2:42 AM THERAPEUTIC SPECIALIST COMPREHENSIVE METABOLIC PANEL Routine 07/31/2022 11:[address] CHEST WO CON JAC 07/31/2022 10:22 AM THERAPEUTIC SPECIALIST CBC W/DIFF AUTOMATED Routine 07/31/2022 9:41 AM THERAPEUTIC SPECIALIST XR CHEST PORTABLE Routine 07/31/2022 6:0 0 AM THERAPEUTIC SPECIALIST BRONCHOSCOPY Routine 07/30/2022 4:15 PM THERAPEUTIC SPECIALIST CULTURE RESPIRATORY W/ GRAM STAIN TIMED 07/30/2022 3:30 PM THERAPEUTIC SPECIALIST CULTURE, QUANTITATIVE W/ GRAM STAIN TIMED 07/30/2022 3:30 PM THERAPEUTIC SPECIALIST CULTURE VIRAL RESPIRATORY RAPID Routine 07/30/2022 3:30 PM THERAPEUTIC SPECIALIST CULTURE, FUNGUS TIMED 07/30/2022 3:30 PM THERAPEUTIC SPECIALIST CULTURE HERPES Routine 07/30/2022 3:30 PM THERAPEUTIC SPECIALIST CULTURE CMV Routine 07/30/2022 3:30 PM THERAPEUTIC SPECIALIST CULTURE TB/AFB OTHER Routine 07/30/2022 3:30 PM THERAPEUTIC SPECIALIST HC SMEAR ACID FAST/FLUOR-90 Routine 07/30/2022 3:30 PM THERAPEUTIC SPECIALIST BRONCHOSCOPY DIAGNOSTIC W/WASH 07/30/2022 2:45 PM THERAPEUTIC SPECIALIST PNEUMONIA Case Notes OC #1 07/30/[facility] [facility] BRONCHOSCOPY 07/30/2022 2:41 PM THERAPEUTIC SPECIALIST VANCOMYCIN TIMED 07/30/2022 6:17 AM THERAPEUTIC SPECIALIST XR CHEST PORTABLE Routine 07/30/2022 5:2 7 AM THERAPEUTIC SPECIALIST CYTOLOGY GENERIC Routine 07/30/2022 12:0 0 AM THERAPEUTIC SPECIALIST CYTOLOGY GENERIC Routine 07/30/2022 12:0 0 AM THERAPEUTIC SPECIALIST CULTURE RESPIRATORY W/ GRAM STAIN Nurse Collected Priority 07/28/2022 2:25 PM THERAPEUTIC SPECIALIST CULTURE, FUNGUS Nurse Collected Priority 07/28/2022 2:25 PM THERAPEUTIC SPECIALIST US ABD LIMITED Today 07/28/2022 11:39 AM THERAPEUTIC SPECIALIST BASIC METABOLIC PANEL Routine 07/28/2022 7:03 AM THERAPEUTIC SPECIALIST CBC W/DIFF AUTOMATED Routine 07/28/2022 7:03 AM THERAPEUTIC SPECIALIST VANCOMYCIN TIMED 07/28/2022 7:03 AM THERAPEUTIC SPECIALIST XR CHEST PORTABLE JAC 07/28/2022 12: 43 AM THERAPEUTIC SPECIALIST XR CHEST PORTABLE JAC 07/27/2022 4:2 2 PM THERAPEUTIC SPECIALIST USE ECHOCARDIOGRAM Today 07/27/2022 1: 13 PM THERAPEUTIC SPECIALIST IR MIDLINE PLACEMENT GREATER 3YR STAT 07/27/2022 11:[address] GD CHEST TUBE INSERT RT Today 07/27/2022 10:57 AM THERAPEUTIC SPECIALIST LDH BODY FLUID Nurse Collected Priority 07/27/2022 10:30 AM THERAPEUTIC SPECIALIST PROTEIN TOTAL FLUID Nurse Collected Priority 07/27/2022 10:30 AM THERAPEUTIC SPECIALIST HC BODY FLUID CULTURE Routine 07/27/2022 10:30 AM THERAPEUTIC SPECIALIST CULTURE, ANAEROBIC Routine 07/27/2022 10 :30 AM THERAPEUTIC SPECIALIST CELL COUNT W/ DIFF BODY FLUID Nurse Collected Priority 07/27/2022 10:30 AM THERAPEUTIC SPECIALIST TRANSFUSE RED BLOOD CELLS Routine 07/27/2022 4:45 AM THERAPEUTIC SPECIALIST BMP WITHOUT GLUCOSE Routine 07/27/2022 2 :40 AM THERAPEUTIC SPECIALIST CBC W/DIFF AUTOMATED Routine 07/27/2022 2:40 AM THERAPEUTIC SPECIALIST HISTOPLASMA ANTIBODY PANEL Routine 07/26/2022 12:55 PM THERAPEUTIC SPECIALIST PROCALCITONIN (PCT) Routine 07/26/2022 1 2:55 PM THERAPEUTIC SPECIALIST HEMOGLOBIN AND HEMATOCRIT TIMED 07/26/2022 12:55 PM THERAPEUTIC SPECIALIST BLASTOMYCES AB PANEL CF ID Routine 07/26/2022 12:55 PM THERAPEUTIC SPECIALIST HAPTOGLOBIN, QUANT Routine 07/26/2022 9: 04 AM THERAPEUTIC SPECIALIST BLOOD SMEAR INTERPRETATION BY Routine 07/26/2022 9:04 AM THERAPEUTIC SPECIALIST XR CHEST PORTABLE JAC 07/26/2022 6:5 5 AM THERAPEUTIC SPECIALIST SED RATE, ERYTHROCYTE (ESR) Routine 07/26/2022 2:38 AM THERAPEUTIC SPECIALIST COMPREHENSIVE METABOLIC PANEL Routine 07/26/2022 2:38 AM THERAPEUTIC SPECIALIST LDH, LACTATE DEHYDROGENASE Routine 07/26/2022 2:38 AM THERAPEUTIC SPECIALIST C-REACTIVE PROTEIN Routine 07/26/2022 2: 38 AM THERAPEUTIC SPECIALIST BLOOD GAS, ARTERIAL LAB STAT 07/26/2022 2:38 AM THERAPEUTIC SPECIALIST CBC W/DIFF AUTOMATED STAT 07/26/2022 2:38 AM THERAPEUTIC SPECIALIST CTA CHEST+ABD+PEL STAT 07/26/2022 12: 32 AM THERAPEUTIC SPECIALIST HEMOGLOBIN AND HEMATOCRIT TIMED 07/25/2022 8:56 PM THERAPEUTIC SPECIALIST RETICULOCYTE CT, AUTO Routine 07/25/2022 8:56 PM THERAPEUTIC SPECIALIST HC INFECT AGENT DETECT OPTICAL Nurse Collected Priority 07/25/2022 8:31 PM THERAPEUTIC SPECIALIST LEGIONELLA AG URINE Nurse Collected Priority 07/25/2022 8:31 PM THERAPEUTIC SPECIALIST HIV 1 ANTIGEN(S), WITH HIV-1 AND HIV-2 ANTIBODIES Routine 07/25/2022 5:23 PM THERAPEUTIC SPECIALIST HEMOGLOBIN AND HEMATOCRIT STAT 07/25/2022 5:23 PM THERAPEUTIC SPECIALIST HC MYCOPLASMA AB-90 Routine 07/25/2022 5 :23 PM THERAPEUTIC SPECIALIST TYPE & SCREEN STAT 07/25/2022 5:23 PM THERAPEUTIC SPECIALIST PROTHROMBIN TIME, VENOUS Routine 07/25/2022 5:23 PM THERAPEUTIC SPECIALIST LDH, LACTATE DEHYDROGENASE Routine 07/25/2022 5:23 PM THERAPEUTIC SPECIALIST BLOOD SMEAR INTERPRETATION BY MD Routine 07/25/2022 5:23 PM THERAPEUTIC SPECIALIST CULTURE, BACTERIA, BLOOD Routine 07/25/2022 2:17 PM THERAPEUTIC SPECIALIST COMPREHENSIVE METABOLIC PANEL STAT 07/25/2022 2:16 PM THERAPEUTIC SPECIALIST CULTURE, BACTERIA, BLOOD Routine 07/25/2022 2:16 PM THERAPEUTIC SPECIALIST CBC W/DIFF AUTOMATED STAT 07/25/2022 2:16 PM THERAPEUTIC SPECIALIST PATHOLOGY Routine 07/25/2022 12:00 AM THERAPEUTIC SPECIALIST documented in this encounter Results * XR CHEST PA OR AP 1V (08/08/2022 5:37 AM THERAPEUTIC SPECIALIST) Anatomical Region Laterality Modality Chest Radiographic Jasmina ging 08/08/2022 6:12 AM THERAPEUTIC SPECIALIST Impressions 08/08/2022 6:15 AM THERAPEUTIC SPECIALIST Impression: 1. ??Lines and tubes as described. 2. ??Persistent, but improving atelectasis in the lung bases. ??Scant effusions. Referred By: PROVIDER NON-STAFF Interpreted By: Antonio Lockett MD, 08/08/2022 6:12 AM Narrative 08/08/2022 6:15 AM THERAPEUTIC SPECIALIST Date: 08/08/2022 5:34 AM Exam: XR CHEST PA OR AP 1V Comparison: Chest radiography dated 08/07/2022, 08/06/2022. Technique: Single view chest. History: Chest tube. ??Respiratory failure. Findings: The right chest tube is no longer visualized and presumably removed. ??There is a stable left midline catheter. ??The cardiac silhouette is within normal limits for portable technique. ??The pulmonary vascularity is within normal limits. ??There is mild atelectasis in the lung bases with slight interval improvement. ??There are scant effusions. ??There is no pneumothorax. ??There is calcified disease in the thoracic aorta. Procedure Note Antonio Lockett MD - 08/08/2022 Date: 08/08/2022 5:34 AM Exam: XR CHEST PA OR AP 1V Comparison: Chest radiography dated 08/07/2022, 08/06/2022. Technique: Single view chest. History: Chest tube. Respiratory failure. Findings: The right chest tube is no longer visualized and presumablyremoved. There is a stable left midline catheter. The cardiac silhouetteis within normal limits for portable technique. The pulmonary vascularityis within normal limits. There is mild atelectasis in the lung bases withslight interval improvement. There are scant effusions. There is nopneumothorax. There is calcified disease in the thoracic aorta. Impression: 1. Lines and tubes as described. 2. Persistent, but improving atelectasis in the lung bases. Scanteffusions. Referred By: PROVIDER NON-STAFF Interpreted By: Antonio Lockett MD, 08/08/2022 6:12 AM Edvin RUIZ GENERAL IMAGING Final Result * (ABNORMAL) COMPREHENSIVE METABOLIC PANEL (08/08/2022 2:22 AM THERAPEUTIC SPECIALIST) Pathologist [facility] SODIUM S/P/B 138 136 - 145 MMOL/L 08/08/2022 3:09 AM THERAPEUTIC SPECIALIST [facility] POTASSIUM S/P/B 3.5 3.5 - 5.1 MMOL/L 08/08/2022 3:09 AM [facility] CHLORIDE S/P/B 105 98 - 107 MMOL/L 08/08/2022 3:09 AM [facility] CO2 28.9 21.0 - 32.0 MMOL/L 08/08/2022 3:09 AM [facility] GLUCOSE 123(H) 74 - 106 MG/DL 08/08/2022 3:09 AM [facility] BUN 9 7 - 18 MG/DL 08/08/2022 3:09 AM [facility] CREATININE S/P/B 0.66(L) 0.70 - 1.30 MG/DL 08/08/2022 3:09 AM [facility] CALCIUM S/P/B 8.1(L) 8.5 - 10.1 MG/DL 08/08/2022 3:09 AM [facility] BILIRUBIN TOTAL S/P/B 0.5 0.2 - 1.0 MG/DL 08/08/2022 3:09 AM [facility] ALKALINE PHOSPHATASE S/P/B 47 45 - 115 U/L 08/08/2022 3:09 AM [facility] AST 11(L) 15 - 37 U/L 08/08/2022 3:09 AM [facility] ALT 8(L) 16 - 61 U/L 08/08/2022 3:09 AM [facility] TOTAL PROTEIN S/P/B 5.2(L) 6.4 - 8.2 G/DL 08/08/2022 3:09 AM [facility] ALBUMIN S/P/B 1.7(L) 3.4 - 5.0 G/DL 08/08/2022 3:09 AM [facility] ANION GAP 4.1(L) 5.0 - 15.0 MMOL/L 08/08/2022 3:09 AM [facility] OSMOLALITY (CALC) 286 MOSM/KG 022 3:09 AM [facility] Comment:REFERENCE RANGE NOT ESTABLISHED GFR ESTIMATE >90 >90 ML/MIN/1. 73 M2 08/08/2022 3:09 AM [facility] GFR NOTES GFR REFERENCE S: 08/08/2022 3:09 AM THERAPEUTIC SPECIALIST [facility] Comment: THE ESTIMATED GFR IS [...] ml/min/1.73 m2 G5,KIDNEY FAILURE: <15 ml/min/1.73 m2 08/08/2022 2:22 AM THERAPEUTIC SPECIALIST Lanre Winter MD LABORATORY Final Result [facility] [address] [place] [phone], [phone] * (ABNORMAL) CBC W/DIFF AUTOMATED (08/08/2022 2:22 AM THERAPEUTIC SPECIALIST) WBC 3.7(L) 4.0 - 10.8 x10'3/uL 08/08/2022 2:32 AM THERAPEUTIC SPECIALIST [facility] RBC 2.33(L) 4.50 - 6.10 x10'6/uL 08/08/2022 2:32 AM THERAPEUTIC SPECIALIST [facility] HGB 7.4(L) 13.0 - 18.0 G/DL 08/08/2022 2:32 AM THERAPEUTIC SPECIALIST [facility] HCT 23.7(L) 37.0 - 52.0 % 08/08/2022 2:32 AM THERAPEUTIC SPECIALIST [facility] MCV 101.7(H) 78.0 - 100.0 FL 08/08/2022 2:32 AM THERAPEUTIC SPECIALIST [facility] MCH 31.8(H) 27.0 - 31.0 PG 08/08/2022 2:32 AM THERAPEUTIC SPECIALIST [facility] MCHC 31.2(L) 33.0 - 36.0 G/DL 08/08/2022 2:32 AM [facility] RDW 14.9(H) 11.5 - 14.5 % 08/08/2022 2:32 AM [facility] PLT 186 150 - 350 x10'3/uL 08/08/2022 2:32 AM [facility] MPV 10.2 7.4 - 10.4 FL 08/08/2022 2:32 AM THERAPEUTIC SPECIALIST [facility] ABS. NEUTROPHILS 2.28 1.60 - 8.30 x10'3/uL 08/08/2022 2:32 AM [facility] ABS. LYMPHOCYTES 0.91 0.80 - 4.70 x10'3/uL 08/08/2022 2:32 AM [facility] ABS. MONOCYTES 0.40 0.00 - 1.50 x10'3/uL 08/08/2022 2:32 AM THERAPEUTIC SPECIALIST [facility] ABS. EOSINOPHILS 0.10 0.00 - 0.40 x10'3/uL 08/08/2022 2:32 AM [facility] ABS. BASOPHILS 0.01 0.00 - 0.20 x10'3/uL 08/08/2022 2:32 AM [facility] ABS. IMMATURE GRANULOCYTES 0.02 0.00 - 0.03 x10'3/uL 08/08/2022 2:32 AM THERAPEUTIC SPECIALIST [facility] ABS. NUCLEATED RBC'S 0.00 0.0 x10'3/uL 08/08/2022 2:32 AM [facility] 08/08/2022 2:22 AM THERAPEUTIC SPECIALIST us Lanre Winter MD LABORATORY Final Result [facility] [address] [place] [address], [phone] * (ABNORMAL) HEMOGLOBIN AND HEMATOCRIT (08/07/2022 10:12 AM THERAPEUTIC SPECIALIST) HGB 7.7(L) 13.0 - 18.0 G/DL 08/07/2022 10:27 AM THERAPEUTIC SPECIALIST [facility] HCT 23.7(L) 37.0 - 52.0 % 08/07/2022 10:27 AM THERAPEUTIC SPECIALIST [facility] 08/07/2022 10:1 2 AM THERAPEUTIC SPECIALIST us Lanre Winter MD LABORATORY Final Result [facility] [address] [place] [address], [phone] * XR CHEST PA OR AP 1V (08/07/2022 5:57 AM THERAPEUTIC SPECIALIST) Anatomical Region Laterality Modality Chest Radiographic Jasmina ging 08/07/2022 6:38 AM THERAPEUTIC SPECIALIST Impressions 08/07/2022 6:41 AM THERAPEUTIC SPECIALIST IMPRESSION: 1. Persistent bilateral pneumonia with persistent infiltrates in the lower lobes with mild bibasilar pleural effusions, again right larger than left. 2. ??Suspect a small retrocardiac hiatal hernia. Referred By: PROVIDER NON-STAFF Interpreted By: Karine Sher MD, 08/07/2022 6:38 AM Narrative 08/07/2022 6:41 AM THERAPEUTIC SPECIALIST EXAMINATION: XR Portable CXR, 1 View INDICATION: Chest tube, respiratory failure, history of thoracoscopy (VATS) with right decortication. COMPARISON: 08/06/2022. FINDINGS: The cardiomediastinal silhouette is within normal limits. ??There may be a small retrocardiac hiatal hernia. ??Atherosclerotic calcifications in the aortic arch. ??Decrease in right pleural effusion with small residual. ??Stable tiny left pleural effusion. ??Persistent infiltrative opacities bilateral lower lobes consistent with atypical pneumonia. ??The upper lungs are clear. ??Stable calcified granulomas in the chest. ??No pneumothorax. ??Chronic spondylosis in the thoracic spine. ??No acute osseous abnormality. Procedure Note Karine Sher MD - 08/07/2022 EXAMINATION: XR Portable CXR, 1 View INDICATION: Chest tube, respiratory failure, history of thoracoscopy(VATS) with right decortication. COMPARISON: 08/06/2022. FINDINGS: The cardiomediastinal silhouette is within normal limits. There may be asmall retrocardiac hiatal hernia. Atherosclerotic calcifications in theaortic arch. Decrease in right pleural effusion with small residual.Stable tiny left pleural effusion. Persistent infiltrative opacitiesbilateral lower lobes consistent with atypical pneumonia. The upper lungsare clear. Stable calcified granulomas in the chest. No pneumothorax.Chronic spondylosis in the thoracic spine. No acute osseousabnormality. IMPRESSION: 1. Persistent bilateral pneumonia with persistent infiltrates in the lowerlobes with mild bibasilar pleural effusions, again right larger thanleft. 2. Suspect a small retrocardiac hiatal hernia. Referred By: PROVIDER NON-STAFF Interpreted By: Karine Sher MD, 08/07/2022 6:38 AM Edvin Pollack PA GENERAL IMAGING Final Result * XR CHEST PA OR AP 1V (08/06/2022 5:28 AM THERAPEUTIC SPECIALIST) Anatomical Region Laterality Modality Chest Radiographic Jasmina ging 08/06/2022 6:29 AM THERAPEUTIC SPECIALIST Impressions 08/06/2022 6:32 AM THERAPEUTIC SPECIALIST IMPRESSION: Stable chest. Referred By: PROVIDER NON-STAFF Interpreted By: Wali Gary MD, 08/06/2022 6:29 AM Narrative 08/06/2022 6:32 AM THERAPEUTIC SPECIALIST Examination: XR CHEST PA OR AP 1V Exam time: 08/06/2022 5:25 AM Indication: Chest tube. Comparison: 08/05/2022 and 08/04/2022 Technique: Portable AP view of the chest. Findings: The cardiac mediastinal silhouette and pulmonary vasculature are stable. ??Stable right-sided chest tube. ??Stable left-sided PICC line with tip near the axillary region. ??Right pleural effusion with associated atelectasis. ??Silhouetting the left hemidiaphragm, which is nonspecific and could also represent pleural effusion and atelectasis. ??Superimposed pneumonia is not excluded. ??Partially visualized right lower rib fractures. Procedure Note Wali Gary MD - 08/06/2022 Examination: XR CHEST PA OR AP 1V Exam time: 08/06/2022 5:25 AM Indication: Chest tube. Comparison: 08/05/2022 and 08/04/2022 Technique: Portable AP view of the chest. Findings: The cardiac mediastinal silhouette and pulmonary vasculature arestable. Stable right-sided chest tube. Stable left-sided PICC line withtip near the axillary region. Right pleural effusion with associatedatelectasis. Silhouetting the left hemidiaphragm, which is nonspecificand could also represent pleural effusion and atelectasis. Superimposedpneumonia is not excluded. Partially visualized right lower ribfractures. IMPRESSION: Stable chest. Referred By: PROVIDER NON-STAFF Interpreted By: Wali Gary MD, 08/06/2022 6:29 AM Ed[facility] GENER[facility]AG[facility] Final Result * Vancomycin Random Level (08/06/2022 4:27 AM THERAPEUTIC SPECIALIST) VANCOMYCIN RANDOM 15.7 MCG/ML 08/06/2022 5:08 AM THERAPEUTIC SPECIALIST [facility] Comment:REFERENCE RANGE NOT ESTABLISHED 08/06/2022 4:27 AM THERAPEUTIC SPECIALIST Larne Winter MD LABORATORY Final Result [facility] [address] [place] [address], [phone] * (ABNORMAL) COMPREHENSIVE METABOLIC PANEL (08/06/2022 4:27 AM [facility]) SODIUM S/P/B 140 136 - 145 MMOL/L 08/06/2022 5:10 AM [facility] POTASSIUM S/P/B 3.8 3.5 - 5.1 MMOL/L 08/06/2022 5:10 AM [facility] CHLORIDE S/P/B 107 98 - 107 MMOL/L 08/06/2022 5:10 AM [facility] CO2 27.3 21.0 - 32.0 MMOL/L 08/06/2022 5:10 AM [facility] GLUCOSE 87 74 - 106 MG/DL 08/06/2022 5:10 AM [facility] BUN 8 7 - 18 MG/DL 08/06/2022 5:10 AM [facility] CREATININE S/P/B 0.61(L) 0.70 - 1.30 MG/DL 08/06/2022 5:10 AM [facility] CALCIUM S/P/B 8.0(L) 8.5 - 10.1 MG/DL 08/06/2022 5:10 AM [facility] BILIRUBIN TOTAL S/P/B 0.3 0.2 - 1.0 MG/DL 08/06/2022 5:10 AM [facility] ALKALINE PHOSPHATASE S/P/B 43(L) 45 - 115 U/L 08/06/2022 5:10 AM [facility] AST 9(L) 15 - 37 U/L 08/06/2022 5:10 AM [facility] ALT 8(L) 16 - 61 U/L 08/06/2022 5:10 AM [facility] TOTAL PROTEIN S/P/B 5.2(L) 6.4 - 8.2 G/DL 08/06/2022 5:10 AM [facility] ALBUMIN S/P/B 1.6(L) 3.4 - 5.0 G/DL 08/06/2022 5:10 AM [facility] ANION GAP 5.7 5.0 - 15.0 MMOL/L 08/06/2022 5:10 AM [facility] OSMOLALITY (CALC) 288 MOSM/KG 022 5:10 AM [facility] Comment:REFERENCE RANGE NOT ESTABLISHED GFR ESTIMATE >90 >90 ML/MIN/1. 73 M2 08/06/2022 5:10 AM [facility] GFR NOTES GFR REFERENCE S: 08/06/2022 5:10 AM [facility] Comment: THE ESTIMATED GFR IS [...] ml/min/1.73 m2 G5,KIDNEY FAILURE: <15 ml/min/1.73 m2 08/06/2022 4:27 AM THERAPEUTIC SPECIALIST Lanre Winter MD LABORATORY Final Result [facility] [address] [place] [address], [phone] * (ABNORMAL) CBC W/DIFF AUTOMATED (08/06/2022 4:27 AM THERAPEUTIC SPECIALIST) WBC 5.1 4.0 - 10.8 x10'3/uL 08/06/2022 4:45 AM THERAPEUTIC SPECIALIST [facility] RBC 2.32(L) 4.50 - 6.10 x10'6/uL 08/06/2022 4:45 AM [facility] HGB 7.6(L) 13.0 - 18.0 G/DL 08/06/2022 4:45 AM [facility] HCT 24.1(L) 37.0 - 52.0 % 08/06/2022 4:45 AM [facility] MCV 103.9(H) 78.0 - 100.0 FL 08/06/2022 4:45 AM [facility] MCH 32.8(H) 27.0 - 31.0 PG 08/06/2022 4:45 AM [facility] MCHC 31.5(L) 33.0 - 36.0 G/DL 08/06/2022 4:45 AM [facility] RDW 15.0(H) 11.5 - 14.5 % 08/06/2022 4:45 AM [facility] PLT 207 150 - 350 x10'3/uL 08/06/2022 4:45 AM [facility] MPV 10.4 7.4 - 10.4 FL 08/06/2022 4:45 AM [facility] ABS. NEUTROPHILS 3.59 1.60 - 8.30 x10'3/uL 08/06/2022 4:45 AM [facility] ABS. LYMPHOCYTES 0.90 0.80 - 4.70 x10'3/uL 08/06/2022 4:45 AM [facility] ABS. MONOCYTES 0.45 0.00 - 1.50 x10'3/uL 08/06/2022 4:45 AM [facility] ABS. EOSINOPHILS 0.09 0.00 - 0.40 x10'3/uL 08/06/2022 4:45 AM [facility] ABS. BASOPHILS 0.01 0.00 - 0.20 x10'3/uL 08/06/2022 4:45 AM [facility] ABS. IMMATURE GRANULOCYTES 0.03 0.00 - 0.03 x10'3/uL 08/06/2022 4:45 AM THERAPEUTIC SPECIALIST [facility] ABS. NUCLEATED RBC'S 0.00 0.0 x10'3/uL 08/06/2022 4:45 AM THERAPEUTIC SPECIALIST [facility] 08/06/2022 4:27 AM THERAPEUTIC SPECIALIST us Lanre Winter MD LABORATORY Final Result Performing Organization Address [facility] de Phone Number [facility] [address] [place] [address], [phone] * TYPE & SCREEN (08/05/2022 10:53 AM THERAPEUTIC SPECIALIST) ABO/RH B POSITIVE 08/05/2022 12:05 PM THERAPEUTIC SPECIALIST [facility] ANTIBODY SCREEN NEGATIVE 08/05/2022 12:05 PM THERAPEUTIC SPECIALIST [facility] SAMPLE EXPIRATION 08/08/2022,2 359 08/05/2022 11:06 AM THERAPEUTIC SPECIALIST [facility] 08/05/2022 10:5 3 AM THERAPEUTIC SPECIALIST us Lanre Winter MD BLOOD BANK TEST ORDERABLES Fin al Result Performing Organization Address [facility] de Phone Number [facility] [address] [place] [address], [phone] * XR CHEST PA OR AP 1V (08/05/2022 5:52 AM THERAPEUTIC SPECIALIST) Anatomical Region Laterality Modality Chest Radiographic Jasmina ging 08/05/2022 7:35 AM THERAPEUTIC SPECIALIST Impressions 08/05/2022 7:37 AM THERAPEUTIC SPECIALIST IMPRESSION: Unchanged appearance of the chest when compared with the radiograph exam from yesterday. Ordered By: EDVIN POLLACK Interpreted By: Antonio Hill MD, 08/05/2022 7:35 AM Narrative 08/05/2022 7:37 AM THERAPEUTIC SPECIALIST Examination: XR CHEST PA OR AP 1V, 08/05/2022 7:35 AM. Technique: Upright AP portable radiograph of the chest Clinical history: Respiratory failure, chest tube Comparison: Chest radiographs 08/04/2022, 08/03/2022 Findings: Right chest tube with tip towards the medial aspect of the right hemithorax. Multiple leads overlying the chest. Left peripherally inserted central catheter with its tip near the left axillary region. Mild cardiomegaly. Arteriosclerotic calcification of the thoracic aorta. Small right pleural effusion. Trace left pleural effusion. Prominence the pulmonary vascular pattern. No definite pneumothorax. Procedure Note Antonio Hill MD - 08/05/2022 Examination: XR CHEST PA OR AP 1V, 08/05/2022 7:35 AM. Technique: Upright AP portable radiograph of the chest Clinical history: Respiratory failure, chest tube Comparison: Chest radiographs 08/04/2022, 08/03/2022 Findings: Right chest tube with tip towards the medial aspect of the righthemithorax. Multiple leads overlying the chest. Left peripherally insertedcentral catheter with its tip near the left axillary region. Mildcardiomegaly. Arteriosclerotic calcification of the thoracic aorta. Smallright pleural effusion. Trace left pleural effusion. Prominence thepulmonary vascular pattern. No definite pneumothorax. IMPRESSION: Unchanged appearance of the chest when compared with the radiograph examfrom yesterday. Ordered By: EDVIN POLLACK Interpreted By: Antonio Hill MD, 08/05/2022 7:35 AM Edvin RUIZ GENERAL IMAGING Final Result * (ABNORMAL) COMPREHENSIVE METABOLIC PANEL (08/05/2022 2:11 AM THERAPEUTIC SPECIALIST) SODIUM S/P/B 136 136 - 145 MMOL/L 08/05/2022 3:20 AM THERAPEUTIC SPECIALIST [facility] POTASSIUM S/P/B 3.4(L) 3.5 - 5.1 MMOL/L 08/05/2022 3:20 AM THERAPEUTIC SPECIALIST [facility] CHLORIDE S/P/B 104 98 - 107 MMOL/L 08/05/2022 3:20 AM [facility] CO2 27.9 21.0 - 32.0 MMOL/L 08/05/2022 3:20 AM [facility] GLUCOSE 114(H) 74 - 106 MG/DL 08/05/2022 3:20 AM [facility] BUN 11 7 - 18 MG/DL 08/05/2022 3:20 AM [facility] CREATININE S/P/B 0.58(L) 0.70 - 1.30 MG/DL 08/05/2022 3:20 AM [facility] CALCIUM S/P/B 7.9(L) 8.5 - 10.1 MG/DL 08/05/2022 3:20 AM [facility] BILIRUBIN TOTAL S/P/B 0.4 0.2 - 1.0 MG/DL 08/05/2022 3:20 AM [facility] ALKALINE PHOSPHATASE S/P/B 39(L) 45 - 115 U/L 08/05/2022 3:20 AM [facility] AST 8(L) 15 - 37 U/L 08/05/2022 3:20 AM [facility] ALT 8(L) 16 - 61 U/L 08/05/2022 3:20 AM [facility] TOTAL PROTEIN S/P/B 4.9(L) 6.4 - 8.2 G/DL 08/05/2022 3:20 AM [facility] ALBUMIN S/P/B 1.5(L) 3.4 - 5.0 G/DL 08/05/2022 3:20 AM [facility] ANION GAP 4.1(L) 5.0 - 15.0 MMOL/L 08/05/2022 3:20 AM [facility] OSMOLALITY (CALC) 282 MOSM/KG 022 3:20 AM [facility] Comment:REFERENCE RANGE NOT ESTABLISHED GFR ESTIMATE >90 >90 ML/MIN/1. 73 M2 08/05/2022 3:20 AM THERAPEUTIC SPECIALIST [facility] GFR NOTES GFR REFERENCE S: 08/05/2022 3:20 AM THERAPEUTIC SPECIALIST [facility] Comment: THE ESTIMATED GFR IS [...] ml/min/1.73 m2 G5,KIDNEY FAILURE: <15 ml/min/1.73 m2 08/05/2022 2:11 AM THERAPEUTIC SPECIALIST Lanre Winter MD LABORATORY Final Result [facility] [address] [place] [address], [phone] * (ABNORMAL) CBC W/DIFF AUTOMATED (08/05/2022 2:11 AM THERAPEUTIC SPECIALIST) WBC 6.6 4.0 - 10.8 x10'3/uL 08/05/2022 2:39 AM THERAPEUTIC SPECIALIST [facility] RBC 2.17(L) 4.50 - 6.10 x10'6/uL 08/05/2022 2:39 AM THERAPEUTIC SPECIALIST [facility] HGB 7.0(L) 13.0 - 18.0 G/DL 08/05/2022 2:39 AM THERAPEUTIC SPECIALIST [facility] HCT 22.0(L) 37.0 - 52.0 % 08/05/2022 2:39 AM THERAPEUTIC SPECIALIST [facility] MCV 101.4(H) 78.0 - 100.0 FL 08/05/2022 2:39 AM [facility] MCH 32.3(H) 27.0 - 31.0 PG 08/05/2022 2:39 AM [facility] MCHC 31.8(L) 33.0 - 36.0 G/DL 08/05/2022 2:39 AM [facility] RDW 14.7(H) 11.5 - 14.5 % 08/05/2022 2:39 AM [facility] PLT 185 150 - 350 x10'3/uL 08/05/2022 2:39 AM [facility] MPV 11.0(H) 7.4 - 10.4 FL 08/05/2022 2:39 AM [facility] ABS. NEUTROPHILS 4.78 1.60 - 8.30 x10'3/uL 08/05/2022 2:39 AM [facility] ABS. LYMPHOCYTES 1.03 0.80 - 4.70 x10'3/uL 08/05/2022 2:39 AM [facility] ABS. MONOCYTES 0.68 0.00 - 1.50 x10'3/uL 08/05/2022 2:39 AM [facility] ABS. EOSINOPHILS 0.10 0.00 - 0.40 x10'3/uL 08/05/2022 2:39 AM [facility] ABS. BASOPHILS 0.01 0.00 - 0.20 x10'3/uL 08/05/2022 2:39 AM [facility] ABS. IMMATURE GRANULOCYTES 0.03 0.00 - 0.03 x10'3/uL 08/05/2022 2:39 AM [facility] ABS. NUCLEATED RBC'S 0.00 0.0 x10'3/uL 08/05/2022 2:39 AM [facility] 08/05/2022 2:11 AM THERAPEUTIC SPECIALIST Lanre Winter MD LABORATORY Final Result [facility] [address] [place] [address], [phone] * CT CHEST WO CON (08/04/2022 3:22 PM THERAPEUTIC SPECIALIST) Anatomical Region Laterality Modality Chest Computed Tomogra phy 08/04/2022 3:3 5 PM THERAPEUTIC SPECIALIST Impressions 08/04/2022 5:17 PM THERAPEUTIC SPECIALIST IMPRESSION: 1. Interval decrease in size of right hydropneumothorax with small residual right pleural effusion. Chest tube replacement. No pneumothorax. 2. Interval development of a probable new loculated pleural effusion along the right lower lung. Unchanged appearance of a right upper lobe loculated pleural effusion. Unchanged small to moderate left pleural effusion is also present. 3. Hazy pulmonary opacities within the left lung favored to represent atelectasis and/or pulmonary edema although pneumonia cannot be excluded. Left lower lobe airway impaction. 4. Cardiomegaly. Scattered smooth interlobular septal thickening likely representing mild fluid overload. 5. Mild centrilobular emphysema 6. Cholelithiasis without cholecystitis. 7. Fractures of the right 10th and 12th ribs. 8. Large hiatal hernia with refluxed gastric contents. The attending radiologist has reviewed the image(s) and agrees with the content of this report. Ordered By: PATEL KELSEY Interpreted By: Ulisses Arcos, 08/04/2022 3:35 PM Narrative 08/04/2022 5:17 PM THERAPEUTIC SPECIALIST EXAMINATION: CT CHEST - NON CONTRAST INDICATION: chest tube for empyema, loculated r fluid collections, increased fluid on cxr today COMPARISON: CT chest 07/31/2022, 07/26/2022. Correlation with abdominal ultrasound 09/27/2021. TECHNIQUE: IV contrast: None Technical comments: Standard helical technique. Multiplanar reconstructions were obtained. Dose reduction: A dose lowering technique was used for this procedure, which may include, but is not limited to, dose reduction techniques, automated exposure control, the use of iterative reconstruction, and ALARA (As Low As Reasonably Achievable) / Image Gently techniques. FINDINGS: Evaluation of mediastinal and hilar structures limited due to lack of IV contrast. MEDIASTINUM Support tubes / lines / post surgical changes: A right-sided chest tube is present with tip located within the posteromedial right hemithorax. Debris and/or fluid is present within the distal tubing. Base of neck/thyroid: Negative. Heart: Cardiomegaly. No pericardial effusion. Aortic valvular calcifications are present. Lymph nodes: There are multiple enlarged, well-rounded mediastinal lymph nodes. ??No axillary adenopathy. Esophagus: Large hiatal hernia with refluxed gastric contents VASCULATURE Thoracic aorta is normal in caliber. The pulmonary arteries are normal in caliber. Scattered peripheral vascular atherosclerotic calcifications. LUNGS AND PLEURA There has been interval decrease in size of the aerated component of the previously noted right hydropneumothorax along the surface of the right lower lobe. Fluid component appears minimally enlarged with compressive atelectasis although overall effusion is decreased in size. The loculated component of the effusion along the margin of the right upper lobe appears relatively similar in size and imaging appearance accounting for differences in technique measuring 2.2 x 5.9 cm in axial dimensions and 4.4 cm craniocaudal. A new somewhat complex appearing fluid collection is present along the dependent margin of the left lower lobe measuring 1.7 x 5.6 x 2.4 cm (series 2, image 71). A more simple, small to moderate sized pleural effusion is present inferior to this with compressive atelectasis. No pneumothorax. New hazy airspace opacities are present within the inferior left upper lobe and left lower lobe which may represent compressive atelectasis or pulmonary edema although pneumonia is not excluded. Airway impaction is present within the left lower lobe. A confluent pulmonary opacity is present within the right lower lobe measuring 11 mm adjacent to the posterior lung with a linear appearance, not previously appreciated due to adjacent pulmonary opacities, favored to represent subsegmental atelectasis (series 3, image 96). Smooth interlobular septal thickening is present within the dependent portions of the lungs bilaterally consistent with fluid overload. Left greater than right apical pulmonary centrilobular emphysema. UPPER ABDOMEN The spleen is again mildly enlarged with hypoattenuating lesions consistent with cysts as appreciated on previous ultrasound. A small splenule is present. Splenic arterial calcifications are present. Hyperdensities are present within the gallbladder lumen, likely representing gallstones. No definitively visualized, or wall thickening or pericholecystic inflammatory changes. No adrenal mass. BONES/SOFT TISSUES No destructive lesions identified. Fractures of the right minimally displaced 10th and nondisplaced 12th ribs are present. Incompletely visualized mild thoracolumbar facet hypertrophy. Procedure Note Antonio Hill MD - 08/04/2022 EXAMINATION: CT CHEST - NON CONTRAST INDICATION: chest tube for empyema, loculated r fluid collections,increased fluid on cxr today COMPARISON: CT chest 07/31/2022, 07/26/2022. Correlation with abdominalultrasound 09/27/2021. TECHNIQUE: IV contrast: None Technical comments: Standard helical technique. Multiplanarreconstructions were obtained. Dose reduction: A dose lowering technique was used for this procedure,which may include, but is not limited to, dose reduction techniques,automated exposure control, the use of iterative reconstruction, and ALARA(As Low As Reasonably Achievable) / Image Gently techniques. FINDINGS: Evaluation of mediastinal and hilar structures limited due to lack of IVcontrast. MEDIASTINUM Support tubes / lines / post surgical changes: A right-sided chest tube ispresent with tip located within the posteromedial right hemithorax. Debrisand/or fluid is present within the distal tubing. Base of neck/thyroid: Negative. Heart: Cardiomegaly. No pericardial effusion. Aortic valvularcalcifications are present. Lymph nodes: There are multiple enlarged, well-rounded mediastinal lymphnodes. No axillary adenopathy. Esophagus: Large hiatal hernia with refluxed gastric contents VASCULATURE Thoracic aorta is normal in caliber. The pulmonary arteries are normal incaliber. Scattered peripheral vascular atherosclerotic calcifications. LUNGS AND PLEURA There has been interval decrease in size of the aerated component of thepreviously noted right hydropneumothorax along the surface of the rightlower lobe. Fluid component appears minimally enlarged with compressiveatelectasis although overall effusion is decreased in size. The loculatedcomponent of the effusion along the margin of the right upper lobe appearsrelatively similar in size and imaging appearance accounting fordifferences in technique measuring 2.2 x 5.9 cm in axial dimensions and4.4 cm craniocaudal. A new somewhat complex appearing fluid collection ispresent along the dependent margin of the left lower lobe measuring 1.7 x5.6 x 2.4 cm (series 2, image 71). A more simple, small to moderate sizedpleural effusion is present inferior to this with compressive atelectasis.No pneumothorax. New hazy airspace opacities are present within the inferior left upperlobe and left lower lobe which may represent compressive atelectasis orpulmonary edema although pneumonia is not excluded. Airway impaction ispresent within the left lower lobe. A confluent pulmonary opacity ispresent within the right lower lobe measuring 11 mm adjacent to theposterior lung with a linear appearance, not previously appreciated due toadjacent pulmonary opacities, favored to represent subsegmentalatelectasis (series 3, image 96). Smooth interlobular septal thickening ispresent within the dependent portions of the lungs bilaterally consistentwith fluid overload. Left greater than right apical pulmonarycentrilobular emphysema. UPPER ABDOMEN The spleen is again mildly enlarged with hypoattenuating lesionsconsistent with cysts as appreciated on previous ultrasound. A smallsplenule is present. Splenic arterial calcifications are present.Hyperdensities are present within the gallbladder lumen, likelyrepresenting gallstones. No definitively visualized, or wall thickening orpericholecystic inflammatory changes. No adrenal mass. BONES/SOFT TISSUES No destructive lesions identified. Fractures of the right minimallydisplaced 10th and nondisplaced 12th ribs are present. Incompletelyvisualized mild thoracolumbar facet hypertrophy. IMPRESSION: 1. Interval decrease in size of right hydropneumothorax with smallresidual right pleural effusion. Chest tube replacement. Nopneumothorax. 2. Interval development of a probable new loculated pleural effusion alongthe right lower lung. Unchanged appearance of a right upper lobe loculatedpleural effusion. Unchanged small to moderate left pleural effusion isalso present. 3. Hazy pulmonary opacities within the left lung favored to representatelectasis and/or pulmonary edema although pneumonia cannot be excluded.Left lower lobe airway impaction. 4. Cardiomegaly. Scattered smooth interlobular septal thickening likelyrepresenting mild fluid overload. 5. Mild centrilobular emphysema 6. Cholelithiasis without cholecystitis. 7. Fractures of the right 10th and 12th ribs. 8. Large hiatal hernia with refluxed gastric contents. The attending radiologist has reviewed the image(s) and agrees with thecontent of this report. Ordered By: PATEL KELSEY Interpreted By: Ulisses Arcos, 08/04/2022 3:35 PM us Patel Kelsey MD CT Final Result * XR CHEST PA OR AP 1V (08/04/2022 5:27 AM THERAPEUTIC SPECIALIST) Anatomical Region Laterality Modality Chest Radiographic Jasmina ging 08/04/2022 6:43 AM THERAPEUTIC SPECIALIST Impressions 08/04/2022 6:44 AM THERAPEUTIC SPECIALIST IMPRESSION: ======== ?? 1. ??Increasing size of tiny right effusion with scattered right lower lung increasing infiltrates. ??Improving effusion on the left. Referred By: PROVIDER NON-STAFF Interpreted By: Mitch Carpenter MD, 08/04/2022 6:43 AM Narrative 08/04/2022 6:44 AM THERAPEUTIC SPECIALIST Examination: Chest Radiograph, 1 view Exam Date/Time: 08/04/2022 5:25 AM Reason For Exam: ??chest tube ?? Respiratory failure, chest tube Comparison: 08/03/2022 chest radiograph Technique: Single AP view of the chest. Findings: ??Right-sided chest tube in stable position. ??Heart size upper limits normal and stable. ??Worsening scattered interstitial infiltrates in the right perihilar and right lung base regions. ??Decreasing opacity at the left lung base. ??No pneumothorax. ??No new consolidations. ??Increasing tiny effusion on the right. ======== Procedure Note Mitch Carpenter MD - 08/04/2022 Examination: Chest Radiograph, 1 view Exam Date/Time: 08/04/2022 5:25 AM Reason For Exam: chest tube Respiratory failure, chest tube Comparison: 08/03/2022 chest radiograph Technique: Single AP view of the chest. Findings: Right-sided chest tube in stable position. Heart size upperlimits normal and stable. Worsening scattered interstitial infiltrates inthe right perihilar and right lung base regions. Decreasing opacity atthe left lung base. No pneumothorax. No new consolidations. Increasingtiny effusion on the right. ======== IMPRESSION: ======== 1. Increasing size of tiny right effusion with scattered right lower lungincreasing infiltrates. Improving effusion on the left. Referred By: PROVIDER NON-STAFF Interpreted By: Mitch Carpenter MD, 08/04/2022 6:43 AM us Edvin RUIZ GENERAL IMAGING Final Result * (ABNORMAL) COMPREHENSIVE METABOLIC PANEL (08/04/2022 2:34 AM THERAPEUTIC SPECIALIST) SODIUM S/P/B 137 136 - 145 MMOL/L 08/04/2022 3:11 AM THERAPEUTIC SPECIALIST [facility] POTASSIUM S/P/B 3.7 3.5 - 5.1 MMOL/L 08/04/2022 3:11 AM THERAPEUTIC SPECIALIST [facility] CHLORIDE S/P/B 103 98 - 107 MMOL/L 08/04/2022 3:11 AM [facility] CO2 28.6 21.0 - 32.0 MMOL/L 08/04/2022 3:11 AM THERAPEUTIC SPECIALIST [facility] GLUCOSE 106 74 - 106 MG/DL 08/04/2022 3:11 AM THERAPEUTIC SPECIALIST [facility] BUN 12 7 - 18 MG/DL 08/04/2022 3:11 AM [facility] CREATININE S/P/B 0.62(L) 0.70 - 1.30 MG/DL 08/04/2022 3:11 AM [facility] CALCIUM S/P/B 7.9(L) 8.5 - 10.1 MG/DL 08/04/2022 3:11 AM [facility] BILIRUBIN TOTAL S/P/B 0.6 0.2 - 1.0 MG/DL 08/04/2022 3:11 AM [facility] ALKALINE PHOSPHATASE S/P/B 41(L) 45 - 115 U/L 08/04/2022 3:11 AM [facility] AST 11(L) 15 - 37 U/L 08/04/2022 3:11 AM [facility] ALT 11(L) 16 - 61 U/L 08/04/2022 3:11 AM [facility] TOTAL PROTEIN S/P/B 5.0(L) 6.4 - 8.2 G/DL 08/04/2022 3:11 AM [facility] ALBUMIN S/P/B 1.6(L) 3.4 - 5.0 G/DL 08/04/2022 3:11 AM [facility] ANION GAP 5.4 5.0 - 15.0 MMOL/L 08/04/2022 3:11 AM [facility] OSMOLALITY (CALC) 284 MOSM/KG 022 3:11 AM [facility] Comment:REFERENCE RANGE NOT ESTABLISHED GFR ESTIMATE >90 >90 ML/MIN/1. 73 M2 08/04/2022 3:11 AM [facility] GFR NOTES GFR REFERENCE S: 08/04/2022 3:11 AM [facility] Comment: THE ESTIMATED GFR IS [...] ml/min/1.73 m2 G5,KIDNEY FAILURE: <15 ml/min/1.73 m2 08/04/2022 2:34 AM THERAPEUTIC SPECIALIST Lanre Winter MD LABORATORY Final Result [facility] [address] [place] [address], [id number] * (ABNORMAL) CBC W/DIFF AUTOMATED (08/04/2022 2:34 AM THERAPEUTIC SPECIALIST) WBC 8.5 4.0 - 10.8 x10'3/uL 08/04/2022 2:41 AM THERAPEUTIC SPECIALIST [facility] RBC 2.39(L) 4.50 - 6.10 x10'6/uL 08/04/2022 2:41 AM THERAPEUTIC SPECIALIST [facility] HGB 7.6(L) 13.0 - 18.0 G/DL 08/04/2022 2:41 AM THERAPEUTIC SPECIALIST [facility] HCT 24.4(L) 37.0 - 52.0 % 08/04/2022 2:41 AM THERAPEUTIC SPECIALIST [facility] MCV 102.1(H) 78.0 - 100.0 FL 08/04/2022 2:41 AM THERAPEUTIC SPECIALIST [facility] MCH 31.8(H) 27.0 - 31.0 PG 08/04/2022 2:41 AM THERAPEUTIC SPECIALIST [facility] MCHC 31.1(L) 33.0 - 36.0 G/DL 08/04/2022 2:41 AM [facility] RDW 14.8(H) 11.5 - 14.5 % 08/04/2022 2:41 AM THERAPEUTIC SPECIALIST [facility] PLT 178 150 - 350 x10'3/uL 08/04/2022 2:41 AM [facility] MPV 10.3 7.4 - 10.4 FL 08/04/2022 2:41 AM THERAPEUTIC SPECIALIST [facility] ABS. NEUTROPHILS 6.33 1.60 - 8.30 x10'3/uL 08/04/2022 2:41 AM THERAPEUTIC SPECIALIST [facility] ABS. LYMPHOCYTES 1.11 0.80 - 4.70 x10'3/uL 08/04/2022 2:41 AM THERAPEUTIC SPECIALIST [facility] ABS. MONOCYTES 0.85 0.00 - 1.50 x10'3/uL 08/04/2022 2:41 AM THERAPEUTIC SPECIALIST [facility] ABS. EOSINOPHILS 0.14 0.00 - 0.40 x10'3/uL 08/04/2022 2:41 AM THERAPEUTIC SPECIALIST [facility] ABS. BASOPHILS 0.01 0.00 - 0.20 x10'3/uL 08/04/2022 2:41 AM THERAPEUTIC SPECIALIST [facility] ABS. IMMATURE GRANULOCYTES 0.05(H) 0.00 - 0.03 x10'3/uL 08/04/2022 2:41 AM THERAPEUTIC SPECIALIST [facility] ABS. NUCLEATED RBC'S 0.00 0.0 x10'3/uL 08/04/2022 2:41 AM THERAPEUTIC SPECIALIST [facility] 08/04/2022 2:34 AM THERAPEUTIC SPECIALIST Lanre Winter MD LABORATORY Final Result [facility] [address] [place] [address], [id number] * XR CHEST PA OR AP 1V (08/03/2022 5:50 AM THERAPEUTIC SPECIALIST) Anatomical Region Laterality Modality Chest Radiographic Jasmina ging 08/03/2022 9:15 AM THERAPEUTIC SPECIALIST Impressions 08/03/2022 9:16 AM THERAPEUTIC SPECIALIST IMPRESSION: ======== ?? Developing tiny right pleural effusion otherwise stable interval appearance of infiltrates or atelectasis in the lung bases with probable left effusion. Referred By: PROVIDER NON-STAFF Interpreted By: Mitch Carpenter MD, 08/03/2022 9:15 AM Narrative 08/03/2022 9:16 AM THERAPEUTIC SPECIALIST Examination: Chest Radiograph, 1 view Exam Date/Time: 08/03/2022 5:47 AM Reason For Exam: ??chest tube ?? History respiratory failure, smoking history Comparison: 08/02/2022 chest radiograph Technique: Single AP view of the chest. Findings: ??Persistent opacity at the left lung base with obscuration of the cardiac apex shadow. ??Minimal infiltrates or atelectasis in the right lung base similar to prior study. ??Developing tiny right effusion since the prior exam. ??No pneumothorax. ??Heart size normal. ??Atherosclerotic aorta. ??Pulmonary vasculature stable. ======== Procedure Note Mitch Carpenter MD - 08/03/2022 Examination: Chest Radiograph, 1 view Exam Date/Time: 08/03/2022 5:47 AM Reason For Exam: chest tube History respiratory failure, smoking history Comparison: 08/02/2022 chest radiograph Technique: Single AP view of the chest. Findings: Persistent opacity at the left lung base with obscuration ofthe cardiac apex shadow. Minimal infiltrates or atelectasis in the rightlung base similar to prior study. Developing tiny right effusion sincethe prior exam. No pneumothorax. Heart size normal. Atheroscleroticaorta. Pulmonary vasculature stable. ======== IMPRESSION: ======== Developing tiny right pleural effusion otherwise stable intervalappearance of infiltrates or atelectasis in the lung bases with probableleft effusion. Referred By: PROVIDER NON-STAFF Interpreted By: Mitch Carpenter MD, 08/03/2022 9:15 AM us Edvin RUIZ GENERAL IMAGING Final Result * (ABNORMAL) COMPREHENSIVE METABOLIC PANEL (08/03/2022 2:22 AM THERAPEUTIC SPECIALIST) SODIUM S/P/B 136 136 - 145 MMOL/L 08/03/2022 3:42 AM [facility] POTASSIUM S/P/B 3.8 3.5 - 5.1 MMOL/L 08/03/2022 3:42 AM [facility] CHLORIDE S/P/B 102 98 - 107 MMOL/L 08/03/2022 3:42 AM [facility] CO2 28.4 21.0 - 32.0 MMOL/L 08/03/2022 3:42 AM [facility] GLUCOSE 109(H) 74 - 106 MG/DL 08/03/2022 3:42 AM [facility] BUN 11 7 - 18 MG/DL 08/03/2022 3:42 AM [facility] CREATININE S/P/B 0.75 0.70 - 1.30 MG/DL 08/03/2022 3:42 AM [facility] CALCIUM S/P/B 8.0(L) 8.5 - 10.1 MG/DL 08/03/2022 3:42 AM [facility] BILIRUBIN TOTAL S/P/B 0.6 0.2 - 1.0 MG/DL 08/03/2022 3:42 AM [facility] ALKALINE PHOSPHATASE S/P/B 49 45 - 115 U/L 08/03/2022 3:42 AM [facility] AST 11(L) 15 - 37 U/L 08/03/2022 3:42 AM [facility] ALT 13(L) 16 - 61 U/L 08/03/2022 3:42 AM [facility] TOTAL PROTEIN S/P/B 5.4(L) 6.4 - 8.2 G/DL 08/03/2022 3:42 AM THERAPEUTIC SPECIALIST [facility] ALBUMIN S/P/B 1.9(L) 3.4 - 5.0 G/DL 08/03/2022 3:42 AM THERAPEUTIC SPECIALIST [facility] ANION GAP 5.6 5.0 - 15.0 MMOL/L 08/03/2022 3:42 AM [facility] OSMOLALITY (CALC) 282 MOSM/KG 022 3:42 AM [facility] Comment:REFERENCE RANGE NOT ESTABLISHED GFR ESTIMATE >90 >90 ML/MIN/1. 73 M2 08/03/2022 3:42 AM [facility] GFR NOTES GFR REFERENCE S: 08/03/2022 3:42 AM [facility] Comment: THE ESTIMATED GFR IS [...] ml/min/1.73 m2 G5,KIDNEY FAILURE: <15 ml/min/1.73 m2 08/03/2022 2:22 AM THERAPEUTIC SPECIALIST Lanre Winter MD LABORATORY Final Result [facility] [address] [place] [address], [phone] * (ABNORMAL) CBC W/DIFF AUTOMATED (08/03/2022 2:22 AM THERAPEUTIC SPECIALIST) WBC 11.0(H) 4.0 - 10.8 x10'3/uL 08/03/2022 3:09 AM THERAPEUTIC SPECIALIST [facility] RBC 2.84(L) 4.50 - 6.10 x10'6/uL 08/03/2022 3:09 AM [facility] HGB 9.2(L) 13.0 - 18.0 G/DL 08/03/2022 3:09 AM [facility] HCT 28.9(L) 37.0 - 52.0 % 08/03/2022 3:09 AM [facility] MCV 101.8(H) 78.0 - 100.0 FL 08/03/2022 3:09 AM [facility] MCH 32.4(H) 27.0 - 31.0 PG 08/03/2022 3:09 AM [facility] MCHC 31.8(L) 33.0 - 36.0 G/DL 08/03/2022 3:09 AM [facility] RDW 15.1(H) 11.5 - 14.5 % 08/03/2022 3:09 AM [facility] PLT 216 150 - 350 x10'3/uL 08/03/2022 3:09 AM [facility] MPV 10.8(H) 7.4 - 10.4 FL 08/03/2022 3:09 AM [facility] ABS. NEUTROPHILS 8.98(H) 1.60 - 8.30 x10'3/uL 08/03/2022 3:09 AM [facility] ABS. LYMPHOCYTES 0.81 0.80 - 4.70 x10'3/uL 08/03/2022 3:09 AM [facility] ABS. MONOCYTES 1.00 0.00 - 1.50 x10'3/uL 08/03/2022 3:09 AM [facility] ABS. EOSINOPHILS 0.12 0.00 - 0.40 x10'3/uL 08/03/2022 3:09 AM [facility] ABS. BASOPHILS 0.01 0.00 - 0.20 x10'3/uL 08/03/2022 3:09 AM THERAPEUTIC SPECIALIST [facility] ABS. IMMATURE GRANULOCYTES 0.08(H) 0.00 - 0.03 x10'3/uL 08/03/2022 3:09 AM THERAPEUTIC SPECIALIST [facility] ABS. NUCLEATED RBC'S 0.00 0.0 x10'3/uL 08/03/2022 3:09 AM THERAPEUTIC SPECIALIST [facility] 08/03/2022 2:22 AM THERAPEUTIC SPECIALIST Lanre Winter MD LABORATORY Final Result [facility] [address] [place] [address], [id number] * XR CHEST PORTABLE (08/02/2022 9:58 AM THERAPEUTIC SPECIALIST) Anatomical Region Laterality Modality Chest Radiographic Jasmina ging 08/02/2022 10:5 5 AM THERAPEUTIC SPECIALIST Impressions 08/02/2022 10:57 AM THERAPEUTIC SPECIALIST IMPRESSION: 1. Unchanged bibasilar opacities. Ordered By: EDVIN POLLACK Interpreted By: Atilio Read MD, 08/02/2022 10:55 AM Narrative 08/02/2022 10:57 AM THERAPEUTIC SPECIALIST Examination: X-ray chest, 1 view Exam time: 08/02/2022 at 0958 hours Clinical history: VATS. Comparison: 07/31/2022 Technique: Single frontal upright view of the chest obtained. FINDINGS: Interval removal of pleural catheter. However, different tube opacity projecting over right hemithorax. Left retrocardiac atelectasis/consolidation. Bibasilar reticular/ground glass opacities. Pleural effusion. No pneumothorax. Cardiomediastinal silhouette unchanged. Procedure Note Atilio Read MD - 08/02/2022 Examination: X-ray chest, 1 view Exam time: 08/02/2022 at 0958 hours Clinical history: VATS. Comparison: 07/31/2022 Technique: Single frontal upright view of the chest obtained. FINDINGS: Interval removal of pleural catheter. However, different tube opacityprojecting over right hemithorax. Left retrocardiac atelectasis/consolidation. Bibasilar reticular/groundglass opacities. Pleural effusion. No pneumothorax. Cardiomediastinalsilhouette unchanged. IMPRESSION: 1. Unchanged bibasilar opacities. Ordered By: EDVIN POLLACK Interpreted By: Atilio Read MD, 08/02/2022 10:55 AM us Edvin Pollack PA GENERAL IMAGING Final Result * SMEAR,FLUOR STAIN,ACID FAST (08/02/2022 8:38 AM THERAPEUTIC SPECIALIST) ACID FAST SMEAR RESULT SEE NOTE 07:45 PM 08/05/2022 7:45 PM THERAPEUTIC SPECIALIST [facility] Comment: Test ?Result ??Flag ??Unit ??RefValue Acid Fast Smear For Mycobacterium SOURCE: LUNG, RIGHT, RT DECORTICATION TIS ACID FAST SMEAR FOR MYCOBACTERIUM ?FINAL Negative. Test Performed by: [address] [address] Counter Cutter: Brent Alcaraz M.D. Ph.D.; CLIA# [id number] 08/02/2022 8:38 AM THERAPEUTIC SPECIALIST us Ross Blackburn MD MICROBIOLOGY - GENERAL OR DERABLES Final Result [facility] [address] [place] [address] * CULTURE, TISSUE W/GRAM STAIN (08/02/2022 8:38 AM THERAPEUTIC SPECIALIST) SPEC DESCRIPTION TISSUE: RT DECORTICATION TISU 08/02/2022 8:43 AM THERAPEUTIC SPECIALIST [facility] SPECIAL REQUESTS NO SPECIAL REQUEST 08/02/2022 8:43 AM [facility] GRAM STAIN RESULT MODERATE NEUTROPHILS SEEN 08/02/2022 4:02 PM [facility] GRAM STAIN RESULT NO ORGANISMS SEEN 08/02/2022 4:02 PM [facility] CULTURE RESULT NO GROWTH 5 DAYS 01/2022 11:36 AM [facility] TISSUE TISSUE SPECIMEN / Unknown 08/02/2022 8:38 AM THERAPEUTIC SPECIALIST us Ross Blackburn MD MICROBIOLOGY - GENERAL OR DERABLES Final Result Performing Organization Address City/State/[facility] Co de Phone Number [facility] [address] [place] [address], [phone] * CULTURE, FUNGUS (08/02/2022 8:38 AM THERAPEUTIC SPECIALIST) SOURCE ([place] GAP) TISSUE 08/02/2022 10:10 AM THERAPEUTIC SPECIALIST [facility] Comment:RT DECORTICATION TIS U CULTURE RESULT SEE NOTE 08/29/2022 01:03 AM 08/29/2022 1:03 AM THERAPEUTIC SPECIALIST [facility] Comment: Test ?Result ?Flag ??Unit ??RefValue Fungal Culture, Routine ? SOURCE: LUNG, RIGHT, TISSUE RT DECORTICATION TISU FUNGAL CULTURE, ROUTINE ?FINAL No growth after 24 days of incubation. Test Performed by: [facility] [address] [place] [address] Counter Cutter: Brent Alcaraz M.D. Ph.D.; CLIA# [id number] TISSUE (OTHER (type in comments)) 08/02/2022 8:38 AM THERAPEUTIC SPECIALIST us Ross Blackburn MD MICROBIOLOGY - GENERAL OR DERABLES Final Result [facility] [address] [place] [address] [facility] [place] [address], [phone] * CULTURE TB/AFB OTHER (TYPE IN COMMENTS) (08/02/2022 8:38 AM THERAPEUTIC SPECIALIST) SOURCE ([place] GAP) TISSUE 08/02/2022 10:09 AM THERAPEUTIC SPECIALIST [facility] Comment:RT DECORTICATION TIS U CULTURE RESULT SEE NOTE 09/16/2022 01:03 AM 09/16/2022 1:03 AM THERAPEUTIC SPECIALIST [facility] Comment: Test ?Result ?Flag ??Unit ??RefValue Mycobacterial Culture ? SOURCE: LUNG, RIGHT, TISSUE RT DECORTICATION TISU MYCOBACTERIAL CULTURE ?FINAL No growth after 42 days of incubation. Test Performed by: [facility] [address] [place] [address] Counter Cutter: Brent Alcaraz M.D. Ph.D.; [facility]# [id number] TISSUE (OTHER (type in comments)) 08/02/2022 8:38 AM THERAPEUTIC SPECIALIST us Ross Blackburn MD MICROBIOLOGY - GENERAL OR DERABLES Final Result Performing Organization Address [facility] de Phone Number [facility] [address] [place] [address] [facility] [address] [place] [address], [phone] * CULTURE, ANAEROBIC (08/02/2022 8:38 AM THERAPEUTIC SPECIALIST) SPEC DESCRIPTION TISSUE: RT DECORTICATION TISU 08/02/2022 8:43 AM THERAPEUTIC SPECIALIST [facility] SPECIAL REQUESTS NO SPECIAL REQUEST 08/02/2022 8:43 AM THERAPEUTIC SPECIALIST [facility] CULTURE RESULT NO ANAEROBES ISOLATED 08/07/2022 9:10 AM THERAPEUTIC SPECIALIST [facility] TISSUE TISSUE SPECIMEN / Unknown 08/02/2022 8:38 AM THERAPEUTIC SPECIALIST Ross Blackburn MD MICROBIOLOGY - GENERAL OR DERABLES Final Result Performing Organization Address [facility] de Phone Number [facility] [address] [place] [address], [place] [phone] * Pathology (08/02/2022 7:03 AM THERAPEUTIC SPECIALIST) PATHOLOGY [facility] ? Department of Laboratory Medicine ?[address] ?[place] [address] ? , extension [phone] ? Pathology Report ? Surgical Pathology Report Name: RAY PHILLIPS ? Specimen #: [id number] Age: 9 1955 (Age: 67) ? Location: [facility] Sex: M ?Procedure Date: 08/02/2022 Hospital #: [id number] ?Date Received: 08/02/2022 Date Reported: 08/07/2022 Provider: ROSS BLACKBURN MD Source: Pleural peel, right Clinical History: Pleural effusion Gross Description: Received in formalin, labeled with a patient label and as right lung decortication tissue are multiple pieces and fragments of edematous pale [id number] tissue. ??Some of the pieces exhibit some hemorrhagic areas. The pieces are 6 x 4 x 1.0 cm in aggregate. ??Nut Orchardist tissue is submitted in cassettes 1-4. Gross examination (when applicable), interpretation and sign-out were performed at [facility], [address], [place], [place], [address]. FINAL DIAGNOSIS: PLEURAL PEEL, RIGHT: ? - CONSISTENT WITH ACUTE FIBRINOUS PLEURITIS. IC: CBG Electronically Signed Out ? GADIEL HANSON MD [facility] TISSUE (OTHER (type in comments)) 08/02/2022 7:03 AM THERAPEUTIC SPECIALIST Ross Blackburn MD PATHOLOGY/CYTOLOGY ORDERA BLES Final Result Performing Organization Address [facility] de Phone Number [facility] [address] [place] [address], [id number] * TYPE & SCREEN (08/01/2022 11:11 PM THERAPEUTIC SPECIALIST) ABO/RH B POSITIVE 08/02/2022 12:25 AM THERAPEUTIC SPECIALIST [facility] ANTIBODY SCREEN NEGATIVE 08/02/2022 12:25 AM THERAPEUTIC SPECIALIST [facility] SAMPLE EXPIRATION 08/04/2022,2 359 08/01/2022 11:27 PM THERAPEUTIC SPECIALIST [facility] 08/01/2022 11:1 1 PM THERAPEUTIC SPECIALIST Ross Blackburn MD BLOOD BANK TEST ORDERABLE S Final Result Performing Organization Address [facility] de Phone Number [facility] [address] [place] [address], [place] [phone] * (ABNORMAL) BMP WITHOUT GLUCOSE (08/01/2022 11:31 AM THERAPEUTIC SPECIALIST) SODIUM S/P/B 138 136 - 145 MMOL/L 08/01/2022 12:12 PM THERAPEUTIC SPECIALIST [facility] POTASSIUM S/P/B 3.9 3.5 - 5.1 MMOL/L 08/01/2022 12:12 PM [facility] CHLORIDE S/P/B 107 98 - 107 MMOL/L 08/01/2022 12:12 PM [facility] CO2 24.1 21.0 - 32.0 MMOL/L 08/01/2022 12:12 PM [facility] BUN 16 7 - 18 MG/DL 08/01/2022 12:12 PM [facility] CREATININE S/P/B 0.70 0.70 - 1.30 MG/DL 08/01/2022 12:12 PM [facility] CALCIUM S/P/B 7.9(L) 8.5 - 10.1 MG/DL 08/01/2022 12:12 PM [facility] ANION GAP 6.9 5.0 - 15.0 MMOL/L 08/01/2022 12:12 PM [facility] GFR ESTIMATE >90 >90 ML/MIN/1. 73 M2 08/01/2022 12:12 PM [facility] GFR NOTES GFR REFERENCE S: 08/01/2022 12:12 PM [facility] Comment: THE ESTIMATED GFR IS [...] ml/min/1.73 m2 G5,KIDNEY FAILURE: <15 ml/min/1.73 m2 08/01/2022 11:3 1 AM THERAPEUTIC SPECIALIST us Florencio Amaya MD LABORATORY Final Result [facility] [address] [place] [address], [place] [phone] * Vancomycin Random Level (08/01/2022 11:31 AM THERAPEUTIC SPECIALIST) Pathologist [facility] VANCOMYCIN RANDOM 18.7 MCG/ML 08/01/2022 12:30 PM [facility] 08/01/2022 11:3 1 AM THERAPEUTIC SPECIALIST Florencio Amaya MD LABORATORY Final Result [facility] [address] [place] [address], [id number] * (ABNORMAL) COMPREHENSIVE METABOLIC PANEL (08/01/2022 2:42 AM THERAPEUTIC SPECIALIST) Pathologist [facility] SODIUM S/P/B 140 136 - 145 MMOL/L 08/01/2022 4:00 AM [facility] POTASSIUM S/P/B 3.4(L) 3.5 - 5.1 MMOL/L 08/01/2022 4:00 AM [facility] CHLORIDE S/P/B 107 98 - 107 MMOL/L 08/01/2022 4:00 AM [facility] CO2 27.2 21.0 - 32.0 MMOL/L 08/01/2022 4:00 AM [facility] GLUCOSE 145(H) 74 - 106 MG/DL 08/01/2022 4:00 AM [facility] BUN 19(H) 7 - 18 MG/DL 08/01/2022 4:00 AM [facility] CREATININE S/P/B 0.77 0.70 - 1.30 MG/DL 08/01/2022 4:00 AM [facility] CALCIUM S/P/B 8.1(L) 8.5 - 10.1 MG/DL 08/01/2022 4:00 AM [facility] BILIRUBIN TOTAL S/P/B 0.4 0.2 - 1.0 MG/DL 08/01/2022 4:00 AM [facility] ALKALINE PHOSPHATASE S/P/B 50 45 - 115 U/L 08/01/2022 4:00 AM [facility] AST 8(L) 15 - 37 U/L 08/01/2022 4:00 AM [facility] ALT 14(L) 16 - 61 U/L 08/01/2022 4:00 AM [facility] TOTAL PROTEIN S/P/B 5.0(L) 6.4 - 8.2 G/DL 08/01/2022 4:00 AM [facility] ALBUMIN S/P/B 1.7(L) 3.4 - 5.0 G/DL 08/01/2022 4:00 AM [facility] ANION GAP 5.8 5.0 - 15.0 MMOL/L 08/01/2022 4:00 AM [facility] OSMOLALITY (CALC) 295 MOSM/KG 022 4:00 AM [facility] Comment:REFERENCE RANGE NOT ESTABLISHED GFR ESTIMATE >90 >90 ML/MIN/1. 73 M2 08/01/2022 4:00 AM [facility] GFR NOTES GFR REFERENCE S: 08/01/2022 4:00 AM [facility] Comment: THE ESTIMATED GFR IS [...] ml/min/1.73 m2 G5,KIDNEY FAILURE: <15 ml/min/1.73 m2 08/01/2022 2:42 AM THERAPEUTIC SPECIALIST Lanre Winter MD LABORATORY Final Result [facility] [address] [place] [address], [id number] * (ABNORMAL) CBC W/DIFF AUTOMATED (08/01/2022 2:42 AM THERAPEUTIC SPECIALIST) WBC 11.1(H) 4.0 - 10.8 x10'3/uL 08/01/2022 3:32 AM THERAPEUTIC SPECIALIST [facility] RBC 2.58(L) 4.50 - 6.10 x10'6/uL 08/01/2022 3:32 AM [facility] HGB 8.6(L) 13.0 - 18.0 G/DL 08/01/2022 3:32 AM [facility] HCT 26.4(L) 37.0 - 52.0 % 08/01/2022 3:32 AM [facility] MCV 102.3(H) 78.0 - 100.0 FL 08/01/2022 3:32 AM THERAPEUTIC SPECIALIST [facility] MCH 33.3(H) 27.0 - 31.0 PG 08/01/2022 3:32 AM [facility] MCHC 32.6(L) 33.0 - 36.0 G/DL 08/01/2022 3:32 AM [facility] RDW 15.4(H) 11.5 - 14.5 % 08/01/2022 3:32 AM THERAPEUTIC SPECIALIST [facility] PLT 246 150 - 350 x10'3/uL 08/01/2022 3:32 AM THERAPEUTIC SPECIALIST [facility] MPV 10.4 7.4 - 10.4 FL 08/01/2022 3:32 AM [facility] ABS. NEUTROPHILS 8.96(H) 1.60 - 8.30 x10'3/uL 08/01/2022 3:32 AM [facility] ABS. LYMPHOCYTES 1.27 0.80 - 4.70 x10'3/uL 08/01/2022 3:32 AM THERAPEUTIC SPECIALIST [facility] ABS. MONOCYTES 0.60 0.00 - 1.50 x10'3/uL 08/01/2022 3:32 AM THERAPEUTIC SPECIALIST [facility] ABS. EOSINOPHILS 0.12 0.00 - 0.40 x10'3/uL 08/01/2022 3:32 AM THERAPEUTIC SPECIALIST [facility] ABS. BASOPHILS 0.01 0.00 - 0.20 x10'3/uL 08/01/2022 3:32 AM [facility] ABS. IMMATURE GRANULOCYTES 0.14(H) 0.00 - 0.03 x10'3/uL 08/01/2022 3:32 AM [facility] ABS. NUCLEATED RBC'S 0.00 0.0 x10'3/uL 08/01/2022 3:32 AM [facility] 08/01/2022 2:42 AM THERAPEUTIC SPECIALIST Lanre Winter MD LABORATORY Final Result [facility] [address] [place] [id number], [id number] * (ABNORMAL) COMPREHENSIVE METABOLIC PANEL (07/31/2022 11:13 AM THERAPEUTIC SPECIALIST) SODIUM S/P/B 137 136 - 145 MMOL/L 07/31/2022 11:54 AM [facility] POTASSIUM S/P/B 3.6 3.5 - 5.1 MMOL/L 07/31/2022 11:54 AM [facility] CHLORIDE S/P/B 104 98 - 107 MMOL/L 07/31/2022 11:54 AM [facility] CO2 27.8 21.0 - 32.0 MMOL/L 07/31/2022 11:54 AM [facility] GLUCOSE 106 74 - 106 MG/DL 07/31/2022 11:54 AM [facility] BUN 20(H) 7 - 18 MG/DL 07/31/2022 11:54 AM [facility] CREATININE S/P/B 0.74 0.70 - 1.30 MG/DL 07/31/2022 11:54 AM [facility] CALCIUM S/P/B 8.1(L) 8.5 - 10.1 MG/DL 07/31/2022 11:54 AM [facility] BILIRUBIN TOTAL S/P/B 0.3 0.2 - 1.0 MG/DL 07/31/2022 11:54 AM [facility] ALKALINE PHOSPHATASE S/P/B 54 45 - 115 U/L 07/31/2022 11:54 AM [facility] AST 8(L) 15 - 37 U/L 07/31/2022 11:54 AM [facility] ALT 15(L) 16 - 61 U/L 07/31/2022 11:54 AM [facility] TOTAL PROTEIN S/P/B 5.6(L) 6.4 - 8.2 G/DL 07/31/2022 11:54 AM [facility] ALBUMIN S/P/B 1.9(L) 3.4 - 5.0 G/DL 07/31/2022 11:54 AM [facility] ANION GAP 5.2 5.0 - 15.0 MMOL/L 07/31/2022 11:54 AM [facility] OSMOLALITY (CALC) 287 MOSM/KG 022 11:54 AM [facility] Comment:REFERENCE RANGE NOT ESTABLISHED GFR ESTIMATE >90 >90 ML/MIN/1. 73 M2 07/31/2022 11:54 AM [facility] GFR NOTES GFR REFERENCE S: 07/31/2022 11:54 AM [facility] Comment: THE ESTIMATED GFR IS [...] ml/min/1.73 m2 G5,KIDNEY FAILURE: <15 ml/min/1.73 m2 07/31/2022 11:1 3 AM THERAPEUTIC SPECIALIST Lanre Winter MD LABORATORY Final Result Performing Organization Address City/State/[facility] Co de Phone Number [facility] [address] [place] [address], [phone] * CT CHEST WO CON (07/31/2022 10:22 AM THERAPEUTIC SPECIALIST) Anatomical Region Laterality Modality Chest Computed Tomogra phy 07/31/2022 1:56 PM THERAPEUTIC SPECIALIST Impressions 07/31/2022 2:07 PM THERAPEUTIC SPECIALIST IMPRESSION: 1. Focal loculated hydropneumothorax, right posterior inferior pleura, unchanged in size; with significantly decreased fluid component and increased air component. Right pleural catheter in place. Probable pneumothorax ex vacuo. Unlikely bronchopleural fistula. 2. Possible interstitial pulmonary edema. Small left pleural effusion. 3. Possible superimposed atypical viral infectious interstitial pneumonia, improved. 4. Emphysema. Ordered By: ARACELI HUDSON Interpreted By: Atilio Read MD, 07/31/2022 1:56 PM Narrative 07/31/2022 2:07 PM THERAPEUTIC SPECIALIST EXAMINATION: CT Chest without contrast DATE: 07/31/2022 10:19 AM CLINICAL HISTORY: Chest tube. COMPARISON: Chest tube placement on 07/27/2022. CT chest on 07/26/2022. TECHNIQUE: Computed tomography of the chest was obtained without administration of intravenous contrast according to routine protocol. A dose lowering technique was used for this procedure, which may include, but is not limited to, dose reduction technique, automated exposure control, the use of iterative reconstruction, and ALARA (As Low As Reasonably Achievable) / Image Gently techniques. FINDINGS: Focal hydropneumothorax in the right posterior inferior pleura, grossly unchanged in size; with significantly decreased fluid component since last examination, with increased air component. Right pleural catheter in place. Smaller loculated fluid identified in the right pleura. Minimal nonloculated left pleural effusion. Emphysema. Calcified granuloma. Bibasilar atelectasis. Bibasilar linear atelectasis/scarring. Dependent groundglass opacities. Interlobular septal thickening. Lobular groundglass opacities in the right middle lobe and lingula, with overall decreasing groundglass opacities since last examination. No large pericardial effusion. Anemia. Coronary artery disease. Tortuous atherosclerotic thoracic aorta. Hiatal hernia. Catheter in the left axillary vein. A couple hypodense lesions in the spleen, possibly cysts. Small ascites. Old right rib fracture. No destructive bone lesions. Procedure Note Atilio Read MD - 07/31/2022 EXAMINATION: CT Chest without contrast DATE: 07/31/2022 10:19 AM CLINICAL HISTORY: Chest tube. COMPARISON: Chest tube placement on 07/27/2022. CT chest on 07/26/2022. TECHNIQUE: Computed tomography of the chest was obtained withoutadministration of intravenous contrast according to routine protocol. Adose lowering technique was used for this procedure, which may include,but is not limited to, dose reduction technique, automated exposurecontrol, the use of iterative reconstruction, and ALARA (As Low AsReasonably Achievable) / Image Gently techniques. FINDINGS: Focal hydropneumothorax in the right posterior inferior pleura, grosslyunchanged in size; with significantly decreased fluid component since lastexamination, with increased air component. Right pleural catheter inplace. Smaller loculated fluid identified in the right pleura. Minimalnonloculated left pleural effusion. Emphysema. Calcified granuloma. Bibasilar atelectasis. Bibasilar linearatelectasis/scarring. Dependent groundglass opacities. Interlobular septalthickening. Lobular groundglass opacities in the right middle lobe andlingula, with overall decreasing groundglass opacities since lastexamination. No large pericardial effusion. Anemia. Coronary artery disease. Tortuousatherosclerotic thoracic aorta. Hiatal hernia. Catheter in the leftaxillary vein. A couple hypodense lesions in the spleen, possibly cysts.Small ascites. Old right rib fracture. No destructive bone lesions. IMPRESSION: 1. Focal loculated hydropneumothorax, right posterior inferior pleura,unchanged in size; with significantly decreased fluid component andincreased air component. Right pleural catheter in place. Probablepneumothorax ex vacuo. Unlikely bronchopleural fistula. 2. Possible interstitial pulmonary edema. Small left pleural effusion. 3. Possible superimposed atypical viral infectious interstitial pneumonia,improved. 4. Emphysema. Ordered By: ARACELI HUDSON Interpreted By: Atilio Read MD, 07/31/2022 1:56 PM us Araceli Hudson PA-C CT Final Resu lt * (ABNORMAL) CBC W/DIFF AUTOMATED (07/31/2022 9:41 AM THERAPEUTIC SPECIALIST) WBC 16.2(H) 4.0 - 10.8 x10'3/uL 07/31/2022 9:55 AM THERAPEUTIC SPECIALIST [facility] RBC 3.07(L) 4.50 - 6.10 x10'6/uL 07/31/2022 9:55 AM THERAPEUTIC SPECIALIST [facility] HGB 10.1(L) 13.0 - 18.0 G/DL 07/31/2022 9:55 AM THERAPEUTIC SPECIALIST [facility] HCT 31.0(L) 37.0 - 52.0 % 07/31/2022 9:55 AM THERAPEUTIC SPECIALIST [facility] MCV 101.0(H) 78.0 - 100.0 FL 07/31/2022 9:55 AM THERAPEUTIC SPECIALIST [facility] MCH 32.9(H) 27.0 - 31.0 PG 07/31/2022 9:55 AM THERAPEUTIC SPECIALIST [facility] MCHC 32.6(L) 33.0 - 36.0 G/DL 07/31/2022 9:55 AM THERAPEUTIC SPECIALIST [facility] RDW 15.3(H) 11.5 - 14.5 % 07/31/2022 9:55 AM [facility] PLT 277 150 - 350 x10'3/uL 07/31/2022 9:55 AM [facility] MPV 10.4 7.4 - 10.4 FL 07/31/2022 9:55 AM THERAPEUTIC SPECIALIST [facility] ABS. NEUTROPHILS 14.00(H) 1.60 - 8.30 x10'3/uL 07/31/2022 9:55 AM THERAPEUTIC SPECIALIST [facility] ABS. LYMPHOCYTES 1.26 0.80 - 4.70 x10'3/uL 07/31/2022 9:55 AM THERAPEUTIC SPECIALIST [facility] ABS. MONOCYTES 0.59 0.00 - 1.50 x10'3/uL 07/31/2022 9:55 AM THERAPEUTIC SPECIALIST [facility] ABS. EOSINOPHILS 0.01 0.00 - 0.40 x10'3/uL 07/31/2022 9:55 AM THERAPEUTIC SPECIALIST [facility] ABS. BASOPHILS 0.02 0.00 - 0.20 x10'3/uL 07/31/2022 9:55 AM [facility] ABS. IMMATURE GRANULOCYTES 0.36(H) 0.00 - 0.03 x10'3/uL 07/31/2022 9:55 AM THERAPEUTIC SPECIALIST [facility] ABS. NUCLEATED RBC'S 0.03(H) 0.0 x10'3/uL 07/31/2022 9:55 AM THERAPEUTIC SPECIALIST [facility] 07/31/2022 9:41 AM THERAPEUTIC SPECIALIST us Lanre Winter MD LABORATORY Final Result [facility] [address] [place] [address], [id number] * XR CHEST PORTABLE (07/31/2022 6:00 AM THERAPEUTIC SPECIALIST) Anatomical Region Laterality Modality Chest Radiographic Jasmina ging 07/31/2022 9:13 AM THERAPEUTIC SPECIALIST Impressions 07/31/2022 9:17 AM THERAPEUTIC SPECIALIST IMPRESSION: 1. Right-sided chest remains in place. Persistent pleural-based opacity in the lateral right lower chest likely representing some residual loculated effusion. 2. Increased left basilar opacity likely due to increased atelectasis with possible small effusion. In addition there is some increased groundglass opacity overlying the left midlung. Ordered By: RODNEY NOLASCO Interpreted By: Jin Saravia MD, 07/31/2022 9:13 AM Narrative 07/31/2022 9:17 AM THERAPEUTIC SPECIALIST EXAM DESCRIPTION: Chest 1 view EXAM TIME : 07/31/2022 5:58 AM INDICATION: Follow-up right chest tube. Necrotizing pneumonia. COMPARISON FILM : 07/30/2022 TECHNIQUE: ??Chest- 1 - view, 1 - images FINDINGS: Upright AP film obtained which is rotated. Heart size unchanged. ??Right-sided pigtail chest tube again seen overlying the right lower lung. There is persistent pleural-based opacity in the lateral right lower chest likely representing some residual loculated effusion. ??Increased left basilar opacity likely due to atelectasis with possible small effusion. In addition there is some hazy groundglass changes noted overlying the left midlung. ??No pneumothorax. ??No acute bony abnormality. Procedure Note Jin Saravia MD - 07/31/2022 EXAM DESCRIPTION: Chest 1 view EXAM TIME : 07/31/2022 5:58 AM INDICATION: Follow-up right chest tube. Necrotizing pneumonia. COMPARISON FILM : 07/30/2022 TECHNIQUE: Chest- 1 - view, 1 - images FINDINGS: Upright AP film obtained which is rotated. Heart size unchanged.Right-sided pigtail chest tube again seen overlying the right lower lung.There is persistent pleural-based opacity in the lateral right lower chestlikely representing some residual loculated effusion. Increased leftbasilar opacity likely due to atelectasis with possible small effusion. Inaddition there is some hazy groundglass changes noted overlying the leftmidlung. No pneumothorax. No acute bony abnormality. IMPRESSION: 1. Right-sided chest remains in place. Persistent pleural-based opacity inthe lateral right lower chest likely representing some residual loculatedeffusion. 2. Increased left basilar opacity likely due to increased atelectasis withpossible small effusion. In addition there is some increased groundglassopacity overlying the left midlung. Ordered By: RODNEY NOLASCO Interpreted By: Jin Saravia MD, 07/31/2022 9:13 AM us Rodney Nolasco MD GENERAL IMAGING Final Res ult * Bronchoscopy (07/30/2022 4:15 PM THERAPEUTIC SPECIALIST) Narrative Procedure Note Patti Pineda MD - 07/30/2022 4:15 PM CST Procedure Bronchoscopy and BAL Indications for necrotizing pneumonia, smoking and asbestos exposure Consent from patient, aware of risks and benefits sedation from anesthesia Findings: normal airways, no endobronchial lesions, thick mucoussuctioned, BAL with 100 cc to RLL no complications Recovery per anesthesia, extubated at the end, awake Sample sent to cytology and microbiology Kenisha Pineda Patti Pineda MD PROCEDURE/MINOR SURGIC AL ORDERABLES Final Result * CULTURE VIRAL RESPIRATORY RAPID (07/30/2022 3:30 PM THERAPEUTIC SPECIALIST) VIRAL RESP RAPID CULTURE W/RFX REPORT 08/05/2022 3:21 PM THERAPEUTIC SPECIALIST [employer] MATHIEU GARNETT Comment: Respiratory Culture Screen SOURCE : BWASH/BAL MIX IN RESULT ?Negative for Influenza virus, types A and B, Parainfluenza viruses 1,2 # 3, Adenovirus, and Respiratory Syncytial virus. Reference range: Negative Rapid Respiratory Viruses ? Not indicated Test Performed by Javier Benítez, [employer] [facility], [address] [place] [address] Adrián Balderas M.D., Ph.D., Director of Laboratories , CLIA [id number] SPECIMEN TYPE BWASH/BAL MIX IN [place] 1 TO 1 RATIO, FRZ NEG 70 07/31/2022 2:35 PM THERAPEUTIC SPECIALIST [facility] 07/30/2022 3:30 PM THERAPEUTIC SPECIALIST Patti Pineda MD MICROBIOLOGY - GENERAL ORDERABLES Final Result Performing Organization Address [facility] Co de Phone Number [facility] [address] [place] [address], [place] [phone] [employer] [address] , * CULTURE HERPES (07/30/2022 3:30 PM THERAPEUTIC SPECIALIST) [facility] HERPES SIMPLEX VIRUS CULTURE REPORT 08/03/2022 3:42 PM THERAPEUTIC SPECIALIST [employer] [facility] Comment: Herpes Simplex Virus Culture SOURCE : BAL/BWASH MIX IN RESULT ?Not Isolated ?Reference Range: Not Isolated Test Performed by Javier Benítez, [employer] [facility], [address] [place] [address] Adrián Balderas M.D., Ph.D., Director of Laboratories , CLIA [id number] SPECIMEN TYPE BAL[facility] 1 TO 1 RATIO, FRZ NEG 70 07/31/2022 2:32 PM THERAPEUTIC SPECIALIST [facility] 07/30/2022 3:30 PM THERAPEUTIC SPECIALIST Patti Pineda MD MICROBIOLOGY - GENERAL ORDERABLES Final Result Performing Organization Address City/[facility]/ZIP Co de Phone Number [facility] [address] [place] [address], [id number] [employer] [address] , [place] [phone] * CULTURE CMV (07/30/2022 3:30 PM THERAPEUTIC SPECIALIST) [facility] CYTOMEGALOVIRUS CULTURE REPORT 08/06/2022 5:37 PM THERAPEUTIC SPECIALIST [employer] [facility] Comment: CMV Rapid Culture SOURCE : BAL RESULT ?Not Isolated ? Reference Range: Not Isolated Test Performed by Javier Benítez [employer] [facility], [address] [place] [address] Adrián Balderas M.D., Ph.D., Director of Laboratories , [facility] [id number] SPECIMEN SOURCE BAL/BWASH MIX IN VTM 1 TO 1 RATIO, FRZ NEG 70 07/31/2022 2:31 PM THERAPEUTIC SPECIALIST [facility] 07/30/2022 3:30 PM THERAPEUTIC SPECIALIST [facility] Edward Pineda MD MICROBIOLOGY - GENERAL ORDERABLES Final Result Performing Organization Address [facility]/ZIP Co de Phone Number [facility] [address] [place] [address], [place] [id number] , [place] [phone] * CULTURE, QUANTITATIVE W/ GRAM STAIN (07/30/2022 3:30 PM THERAPEUTIC SPECIALIST) [facility] SPEC DESCRIPTION SITE: BAL RLL 07/30/2022 5:04 PM THERAPEUTIC SPECIALIST [facility] SPECIAL REQUESTS NO SPECIAL REQUEST 07/30/2022 5:04 PM [facility] GRAM STAIN RESULT <10 NEUTROPHILS PER LPF 07/31/2022 4:41 AM [facility] GRAM STAIN RESULT <10 EPITHELIAL CELLS PER LPF 07/31/2022 4:41 AM [facility] GRAM STAIN RESULT RARE GRAM NEGATIVE RODS 07/31/2022 4:41 AM [facility] CULTURE RESULT 500 CFU/ML YEAST , ID UPON REQUEST 08/02/2022 2:57 PM [facility] SPECIMEN FROM UNSPECIFIED BODY SITE / Unknown 07/30/2022 3:30 PM THERAPEUTIC SPECIALIST 07/30/2022 5:03 PM THERAPEUTIC SPECIALIST Comment:BAL RLL Florencio Amaya MD MICROBIOLOGY - GENERAL ORDERABLE S Final Result [facility] [address] [place] [address], [phone] * CULTURE TB/AFB OTHER (07/30/2022 3:30 PM THERAPEUTIC SPECIALIST) Pathologist [facility] SOURCE ([place] GAP) SITE 07/30/2022 5:03 PM [facility] Comment:BRONCH WASH CULTURE RESULT SEE NOTE 3 01:04 AM 09/13/2022 1:04 AM THERAPEUTIC SPECIALIST [facility] Comment: Test ?Result ?Flag ??Unit ??RefValue Mycobacterial Culture ? SOURCE: BRONCHIAL WASHING, SITE BRONCH WASH MYCOBACTERIAL CULTURE ?FINAL No growth after 42 days of incubation. Test Performed by: [place] [address] Counter Cutter: Brent Alcaraz M.D. Ph.D.; CLIA# [id number] 07/30/2022 3:30 PM THERAPEUTIC SPECIALIST Florencio Amaya MD MICROBIOLOGY - GENERAL ORDERABLE S Final Result Performing Organization Address [facility] de Phone Number [facility] [address] [facility] [address] [place] [address], [phone] * SMEAR,FLUOR STAIN,ACID FAST (07/30/2022 3:30 PM THERAPEUTIC SPECIALIST) ACID FAST SMEAR RESULT SEE NOTE 11:18 PM 08/01/2022 11:18 PM THERAPEUTIC SPECIALIST [facility] Comment: Test ?Result ??Flag ??Unit ??RefValue Acid Fast Smear For Mycobacterium SOURCE: BRONCHIAL WASHING, BWASH/BAL MIX ACID FAST SMEAR FOR MYCOBACTERIUM ?FINAL Negative. Test Performed by: [place] [address] Counter Cutter: Brent Alcaraz M.D. Ph.D.; CLIA# [id number] 07/30/2022 3:30 PM THERAPEUTIC SPECIALIST Florencio Amaya MD MICROBIOLOGY - GENERAL ORDERABLE S Final Result Performing Organization Address [facility]/ZIP Co de Phone Number [facility] [address] [place] [address] * CULTURE RESPIRATORY W/ GRAM STAIN (07/30/2022 3:30 PM THERAPEUTIC SPECIALIST) SPEC DESCRIPTION SITE: BRONCH WASH 07/30/2022 5:01 PM THERAPEUTIC SPECIALIST [facility] SPECIAL REQUESTS NO SPECIAL REQUEST 07/30/2022 5:01 PM THERAPEUTIC SPECIALIST [facility] GRAM STAIN RESULT MANY NEUTROPHILS SEEN 07/30/2022 8:16 PM THERAPEUTIC SPECIALIST [facility] GRAM STAIN RESULT NO ORGANISMS SEEN 07/30/2022 8:16 PM THERAPEUTIC SPECIALIST [facility] CULTURE RESULT FEW TETE ALBICANS 08/03/2022 12:28 PM THERAPEUTIC SPECIALIST [facility] SPECIMEN FROM UNSPECIFIED BODY SITE / Unknown 07/30/2022 3:30 PM THERAPEUTIC SPECIALIST 07/30/2022 5:00 PM THERAPEUTIC SPECIALIST Comment:BRONCH WASH Florencio Amaya MD MICROBIOLOGY - GENERAL ORDERABLE S Final Result Performing Organization Address City/[facility] Co de Phone Number [facility] [address] [place] [address], [id number] * (ABNORMAL) CULTURE, FUNGUS (07/30/2022 3:30 PM THERAPEUTIC SPECIALIST) SOURCE (BUFFALO GAP) SITE 07/30/2022 5:01 PM THERAPEUTIC SPECIALIST [facility] Comment:BRONCH WASH CULTURE RESULT SEE NOTE 08:01 AM(A) 08/28/2022 8:01 AM THERAPEUTIC SPECIALIST [facility] Comment: Test ?Result ?Flag ??Unit ??RefValue Fungal Culture, Routine ?A ? SOURCE: BRONCHIAL WASHING, SITE BRONCH WASH FUNGAL CULTURE, ROUTINE ?FINAL TETE ALBICANS ? Many NAKASEOMYCES (TETE) GLABRATA ??Few Test Performed by: [place] [address] Counter Cutter: Brent Alcaraz M.D. Ph.D.; CLIA# [id number] 07/30/2022 3:30 PM THERAPEUTIC SPECIALIST us Florencio Amaya MD MICROBIOLOGY - GENERAL ORDERABLE S Final Result Performing Organization Address [facility] de Phone Number [facility] [address] [place] [address], [place] [phone] * Bronchoscopy (07/30/2022 2:41 PM THERAPEUTIC SPECIALIST) us Patti Pineda MD PROCEDURE/MINOR SURGIC AL ORDERABLES Final Result * Vancomycin Random Level (07/30/2022 6:17 AM THERAPEUTIC SPECIALIST) VANCOMYCIN RANDOM 24.4 MCG/ML 07/30/2022 7:34 AM THERAPEUTIC SPECIALIST [facility] Comment:REFERENCE RANGE NOT ESTABLISHED 07/30/2022 6:17 AM THERAPEUTIC SPECIALIST us Florencio Amaya MD LABORATORY Final Result Performing Organization Address [facility] de Phone Number [facility] [address] [place] [address], [place] [phone] * XR CHEST PORTABLE (07/30/2022 5:27 AM THERAPEUTIC SPECIALIST) Anatomical Region Laterality Modality Chest Radiographic Jasmina ging 07/30/2022 8:33 AM THERAPEUTIC SPECIALIST Impressions 07/30/2022 8:37 AM THERAPEUTIC SPECIALIST IMPRESSION: 1) Interval decrease in small left pleural effusion and left basilar consolidation. No other significant change. Ordered By: RODNEY NOLASCO Interpreted By: Nigel Peña MD, 07/30/2022 8:33 AM Narrative 07/30/2022 8:37 AM THERAPEUTIC SPECIALIST Examination: XR CHEST PORTABLE Exam time: 07/30/2022 5:25 AM Clinical history: Loculated right pleural effusion drainage Comparison: 07/28/2022 Technique: Portable AP chest Findings: Percutaneous drainage pigtail catheter seen projecting over the right lung base unchanged in position. Cardiac silhouette remains slightly enlarged similar to previous study. Pulmonary vasculature within normal limits. There is no significant residual right pleural effusion. Interval decrease in small left pleural effusion and left basilar consolidation. Mid and upper lung henning are clear. Benign calcified granuloma right midlung. Procedure Note Nigel Peña MD - 07/30/2022 Examination: XR CHEST PORTABLE Exam time: 07/30/2022 5:25 AM Clinical history: Loculated right pleural effusion drainage Comparison: 07/28/2022 Technique: Portable AP chest Findings: Percutaneous drainage pigtail catheter seen projecting over theright lung base unchanged in position. Cardiac silhouette remains slightlyenlarged similar to previous study. Pulmonary vasculature within normallimits. There is no significant residual right pleural effusion. Interval decreasein small left pleural effusion and left basilar consolidation. Mid andupper lung henning are clear. Benign calcified granuloma right midlung. IMPRESSION: 1) Interval decrease in small left pleural effusion and left basilarconsolidation. No other significant change. Ordered By: RODNEY NOLASCO Interpreted By: Nigel Peña MD, 07/30/2022 8:33 AM us Rodney Nolasco MD GENERAL IMAGING Final Res ult * CYTOLOGY GENERIC (07/30/2022 12:00 AM THERAPEUTIC SPECIALIST) CYTOLOGY OTHER [facility] ? Department of Laboratory Medicine ?[address] [facility] ?[place] [address] ? , extension [phone] ? Pathology Report ? Non-gynecologic Cytology Report Name: RAY PHILLIPS ? Specimen #: [id number] Age: 9 1955 (Age: 67) ? Location: [facility] Sex: M ?Procedure Date: 07/30/2022 Hospital #: [id number] ?Date Received: 07/31/2022 Date Reported: 08/01/2022 Provider: PATTI PINEDA MD ?TRACY YO MD ?FLORENCIO AMAYA MD ?LANRE WINTER MD ?DE VILLASENOR MD Source: LUNG, RIGHT LOWER LOBE, ??BRONCHOALVEOLAR LAVAGE Clinical History: Necrotizing pneumonia, smoking and asbestos exposure. Gross Description: SPECIMEN RECEIVED: ? 12 cc's of clear mucoid fluid ? SLIDES PREPARED: ?3 cytospins and 1 ThinPrep ?STAINS: ? Papanicolaou, Oil Red O, GMS, Iron This case was interpreted and signed out at [facility], [address] [place] [address], [place], [place], [facility]. FINAL DIAGNOSIS: LUNG, RIGHT LOWER LOBE, BRONCHOALVEOLAR LAVAGE: ? - SATISFACTORY FOR EVALUATION. ? - NEGATIVE FOR MALIGNANT CELLS. ? - SCATTERED MIXED INFLAMMATION, BENIGN EPITHELIAL CELLS AND BRONCHIAL MACROPHAGES ? IDENTIFIED. ? - DIFFERENTIAL CELL COUNT: ?- 78% NEUTROPHILS ?- 21% MACROPHAGES ?- 1% LYMPHOCYTES ? - OIL RED O DEMONSTRATES SCATTERED LIPOPHAGES. ? - GMS STAIN DEMONSTRATES SCATTERED FUNGAL HYPHAE OF UNCERTAIN SIGNIFICANCE, ? CLINICAL CORRELATION NECESSARY. ? - IRON STAIN IS POSITIVE FOR RARE SIDEROPHAGES. ? - NEGATIVE FOR VIRAL INCLUSIONS. Electronically Signed Out ? GADIEL HANSON MD [facility] 07/30/2022 07/31/2022 12:13 PM THERAPEUTIC SPECIALIST Comment:LUNG, RIGHT LOWER LO BE, BRONCHOALVEOLAR LAVAGE Anna Us MD PATHOLOGY/CYTOLOGY ORDERABL ES Final Result [facility] [address] [place] [address], [id number] * CYTOLOGY GENERIC (07/30/2022 12:00 AM THERAPEUTIC SPECIALIST) CYTOLOGY OTHER [facility] ? Department of Laboratory Medicine ?[address] [facility] ?[place] [address] ? , extension [phone] ? Pathology Report ? Non-gynecologic Cytology Report Name: RAY PHILLIPS ? Specimen #: [id number] Age: 9 1955 (Age: 67) ? Location: [facility] Sex: M ?Procedure Date: 07/30/2022 Hospital #: [id number] ?Date Received: 07/31/2022 Date Reported: 08/01/2022 Provider: PATTI PINEDA MD ?TRACY YO MD ?FLORENCIO AMAYA MD ?LANRE WINTER MD ?DE VILLASENOR MD Source: LUNG, GENERAL AIRWAYS, BRONCHIAL WASHING Clinical History: Necrotizing pneumonia, smoking and asbestos exposure Gross Description: SPECIMEN RECEIVED: ? 11 cc's of cloudy mucoid fluid ? SLIDES PREPARED: ?1 ThinPrep and 1 cytospin ?STAINS: ? Papanicolaou, GMS This case was interpreted and signed out at [facility], [address] [place] [address], [place], [place], [facility]. FINAL DIAGNOSIS: LUNG, GENERAL AIRWAYS, BRONCHIAL WASHING: ? - SATISFACTORY FOR EVALUATION. ? - NEGATIVE FOR MALIGNANT CELLS. ? - ACUTE INFLAMMATION AND SCATTERED EPITHELIAL CELLS. ? - GMS STAIN DEMONSTRATES RARE FUNGAL HYPHAE OF UNCERTAIN SIGNIFICANCE. Electronically Signed Out ? GADIEL HANSON MD [facility] 07/30/2022 07/31/2022 12: 18 PM THERAPEUTIC SPECIALIST Comment:LUNG, GENERAL AIRWAY S, BRONCHIAL WASHING us Anna Us MD PATHOLOGY/CYTOLOGY ORDERABL ES Final Result [facility] [address] [place] [address], [id number] * (ABNORMAL) CULTURE, FUNGUS (07/28/2022 2:25 PM THERAPEUTIC SPECIALIST) SOURCE (BUFFALO GAP) SPUTUM 07/31/2022 1:36 PM THERAPEUTIC SPECIALIST [facility] CULTURE RESULT SEE NOTE 08/28/2022 08:14 AM(A) 08/28/2022 8:14 AM THERAPEUTIC SPECIALIST [facility] Comment: Test ?Result ?Flag ??Unit ??RefValue Fungal Culture, Routine ?A ? SOURCE: SPUTUM Fungal specimen plated for culture, volume inadequate for optimal recovery. FUNGAL CULTURE, ROUTINE ?FINAL TETE ALBICANS ??Many Test Performed by: [place] [address] Counter Cutter: Brent Alcaraz M.D. Ph.D.; CLIA# [id number] SPUTUM / Unknown 07/28/2022 2:25 PM THERAPEUTIC SPECIALIST [facility] MICROBIOLOGY - GENERA L ORDERABLES Edited Result - Final [facility] [address] [place] [id number], [id number] * CULTURE RESPIRATORY W/ GRAM STAIN (07/28/2022 2:25 PM THERAPEUTIC SPECIALIST) [facility] SPEC DESCRIPTION SPUTUM, EXPECTORATED 07/28/2022 2:25 PM THERAPEUTIC SPECIALIST [facility] SPECIAL REQUESTS NO SPECIAL REQUEST 07/28/2022 2:25 PM THERAPEUTIC SPECIALIST [facility] GRAM STAIN RESULT >25 NEUTROPHILS PER LPF 07/28/2022 10:41 PM THERAPEUTIC SPECIALIST [facility] GRAM STAIN RESULT <10 EPITHELIAL CELLS PER LPF 07/28/2022 10:41 PM THERAPEUTIC SPECIALIST [facility] GRAM STAIN RESULT RARE BUDDING YEAST CELLS 07/28/2022 10:41 PM THERAPEUTIC SPECIALIST [facility] GRAM STAIN RESULT RARE GRAM POSITIVE COCCI IN PAIRS 07/28/2022 10:41 PM THERAPEUTIC SPECIALIST [facility] GRAM STAIN RESULT RARE GRAM NEGATIVE RODS 07/28/2022 10:41 PM THERAPEUTIC SPECIALIST [facility] CULTURE RESULT FEW ALPHA STREPTOCOCCUS 07/29/2022 2:57 PM THERAPEUTIC SPECIALIST [facility] CULTURE RESULT MODERATE PRESUMPTIVE TETE ALBICANS 07/29/2022 2:57 PM THERAPEUTIC SPECIALIST [facility] SPUTUM SPECIMEN / Unknown 07/28/2022 2:25 PM THERAPEUTIC SPECIALIST 07/28/2022 3:24 PM THERAPEUTIC SPECIALIST Tracy Yo MD MICROBIOLOGY - GENERA L ORDERABLES Final Result [facility] [address] [place] [address], [id number] * US ABD LIMITED (07/28/2022 11:39 AM THERAPEUTIC SPECIALIST) Anatomical Region Laterality Modality Abdomen Ultrasound 07/29/2022 6:03 AM THERAPEUTIC SPECIALIST Impressions 07/29/2022 6:06 AM THERAPEUTIC SPECIALIST IMPRESSION: 1. ??3 cysts in the spleen with the largest 2.1 cm. ??The smallest of the 3 cyst demonstrates thin internal septation but appears benign. ??No follow-up imaging is recommended. 2. ??Splenomegaly. Referred By: PROVIDER NON-STAFF Interpreted By: Karine Sher MD, 07/29/2022 6:03 AM Narrative 07/29/2022 6:06 AM THERAPEUTIC SPECIALIST EXAM: Ultrasound abdomen limited spleen. Multiple transabdominal sonographic images of the spleen in the left upper quadrant of the abdomen were obtained using rai-scale and color flow imaging. CLINICAL INDICATION: Splenic lesions seen on CT exam. COMPARISON: CTA chest, abdomen and pelvis with contrast 07/26/2022. FINDINGS: Ultrasound of the spleen demonstrates splenomegaly with the spleen measuring 13.4 x 6.2 x 4.9 cm. ??There are 3 anechoic cyst seen in the spleen with the largest 2.1 cm in the uterus measuring 1.1 and 1.3 cm corresponding to the hypodense lesion seen on the CT exam. ??The smallest cyst demonstrates an internal septation but appears benign. ??No internal vascularity is seen within the splenic cysts. ??No suspicious splenic mass. ??Partially included left pleural effusion. ??The left kidney was not imaged and is not evaluated on this exam. Procedure Note Karine Sher MD - 07/29/2022 EXAM: Ultrasound abdomen limited spleen. Multiple transabdominalsonographic images of the spleen in the left upper quadrant of the abdomenwere obtained using rai- scale and color flow imaging. CLINICAL INDICATION: Splenic lesions seen on CT exam. COMPARISON: CTA chest, abdomen and pelvis with contrast 07/26/2022. FINDINGS: Ultrasound of the spleen demonstrates splenomegaly with thespleen measuring 13.4 x 6.2 x 4.9 cm. There are 3 anechoic cyst seen inthe spleen with the largest 2.1 cm in the uterus measuring 1.1 and 1.3 cmcorresponding to the hypodense lesion seen on the CT exam. The smallestcyst demonstrates an internal septation but appears benign. No internalvascularity is seen within the splenic cysts. No suspicious splenic mass.Partially included left pleural effusion. The left kidney was not imagedand is not evaluated on this exam. IMPRESSION: 1. 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 The smallest of the 3cyst demonstrates thin internal septation but appears benign. Nofollow-up imaging is recommended. 2. Splenomegaly. Referred By: PROVIDER NON-STAFF Interpreted By: Karine Sher MD, 07/29/2022 6:03 AM Florencio Amaya MD ULTRASOUND Final Result * (ABNORMAL) CBC W/DIFF AUTOMATED (07/28/2022 7:03 AM THERAPEUTIC SPECIALIST) [facility] WBC 13.5(H) 4.0 - 10.8 x10'3/uL 07/28/2022 7:39 AM [facility] RBC 2.51(L) 4.50 - 6.10 x10'6/uL 07/28/2022 7:39 AM [facility] HGB 8.3(L) 13.0 - 18.0 G/DL 07/28/2022 7:39 AM [facility] HCT 25.1(L) 37.0 - 52.0 % 07/28/2022 7:39 AM [facility] MCV 100.0 78.0 - 100.0 FL 07/28/2022 7:39 AM [facility] MCH 33.1(H) 27.0 - 31.0 PG 07/28/2022 7:39 AM [facility] MCHC 33.1 33.0 - 36.0 G/DL 07/28/2022 7:39 AM [facility] RDW 14.7(H) 11.5 - 14.5 % 07/28/2022 7:39 AM [facility] PLT 303 150 - 350 x10'3/uL 07/28/2022 7:39 AM [facility] MPV 10.1 7.4 - 10.4 FL 07/28/2022 7:39 AM [facility] ABS. NEUTROPHILS 11.61(H) 1.60 - 8.30 x10'3/uL 07/28/2022 8:06 AM [facility] ABS. NEUTROPHILS CALCULATED 11.07(H) 1.60 - 7.30 x10'3/uL 07/28/2022 8:06 AM [facility] BANDS 0.27 0.00 - 1.00 x10'3/uL 07/28/2022 8:06 AM [facility] ABS. LYMPHOCYTES 1.08 0.80 - 4.70 x10'3/uL 07/28/2022 8:06 AM [facility] ABS. MONOCYTES 0.81 0.00 - 1.50 x10'3/uL 07/28/2022 8:06 AM [facility] ABS. EOSINOPHILS 0.00 0.00 - 0.40 x10'3/uL 07/28/2022 8:06 AM [facility] ABS. BASOPHILS 0.00 0.00 - 0.20 x10'3/uL 07/28/2022 8:06 AM [facility] ABS. METAMYELOCYTES 0.27(H) 0.00 x10'3/uL 07/28/2022 8:06 AM [facility] ABS. NUCLEATED RBC'S 0.00 0.0 x10'3/uL 07/28/2022 8:06 AM [facility] RBC MORPHOLOGY POLYCHROMASIA 022 8:06 AM [facility] Comment:SLIGHT PLT MORPH. NORMAL 07/28/2022 8:06 AM [facility] 07/28/2022 7:03 AM [facility] Florencio Amaya MD LABORATORY Final Result [facility] [address] [place] [address], [id number] * (ABNORMAL) BASIC METABOLIC PANEL (07/28/2022 7:03 AM THERAPEUTIC SPECIALIST) SODIUM S/P/B 137 136 - 145 MMOL/L 07/28/2022 7:50 AM [facility] POTASSIUM S/P/B 4.0 3.5 - 5.1 MMOL/L 07/28/2022 7:50 AM [facility] CHLORIDE S/P/B 105 98 - 107 MMOL/L 07/28/2022 7:50 AM [facility] CO2 28.7 21.0 - 32.0 MMOL/L 07/28/2022 7:50 AM [facility] GLUCOSE 98 74 - 106 MG/DL 07/28/2022 7:50 AM [facility] BUN 19(H) 7 - 18 MG/DL 07/28/2022 7:50 AM [facility] CREATININE S/P/B 0.73 0.70 - 1.30 MG/DL 07/28/2022 7:50 AM [facility] CALCIUM S/P/B 7.9(L) 8.5 - 10.1 MG/DL 07/28/2022 7:50 AM [facility] ANION GAP 3.3(L) 5.0 - 15.0 MMOL/L 07/28/2022 7:50 AM [facility] OSMOLALITY (CALC) 286 MOSM/KG 022 7:50 AM [facility] Comment:REFERENCE RANGE NOT ESTABLISHED GFR ESTIMATE >90 >90 ML/MIN/1. 73 M2 07/28/2022 7:50 AM [facility] GFR NOTES GFR REFERENCE S: 07/28/2022 7:50 AM [facility] Comment: THE ESTIMATED GFR IS [...] ml/min/1.73 m2 G5,KIDNEY FAILURE: <15 ml/min/1.73 m2 07/28/2022 7:03 AM THERAPEUTIC SPECIALIST us Florencio Amaya MD LABORATORY Final Result Performing Organization Address [facility] de Phone Number [facility] [address] [place] [address], [place] [phone] * Vancomycin Random Level (07/28/2022 7:03 AM THERAPEUTIC SPECIALIST) VANCOMYCIN RANDOM 7.0 MCG/ML 07/28/2022 7:52 AM THERAPEUTIC SPECIALIST [facility] Comment:REFERENCE RANGE NOT ESTABLISHED 07/28/2022 7:03 AM THERAPEUTIC SPECIALIST us Tracy Yo MD LABORATORY Final Result Performing Organization Address [facility] de Phone Number [facility] [address] [place] [address], [place] [phone] * XR CHEST PORTABLE (07/28/2022 12:43 AM THERAPEUTIC SPECIALIST) Anatomical Region Laterality Modality Chest Radiographic Jasmina ging 07/28/2022 1:18 AM THERAPEUTIC SPECIALIST Impressions 07/28/2022 1:26 AM THERAPEUTIC SPECIALIST IMPRESSION: 1. ??Right basilar pigtail catheter remains in place. ??Unchanged hazy opacity at the lateral lower right lung zone likely related to loculated pleural effusion. 2. ??Small layering left pleural effusion with adjacent atelectasis or airspace disease at the left lung base may be slightly increased from most recent study. ??Subtle hazy opacities in the left mid and upper lung not significantly changed, could also relate to atelectasis or infiltrate. Referred By: PROVIDER NON-STAFF Interpreted By: Harjinder Cobb MD, 07/28/2022 1:18 AM Narrative 07/28/2022 1:26 AM THERAPEUTIC SPECIALIST EXAMINATION: XR CHEST PORTABLE HISTORY:chest tube COMPARISON: Chest x-ray 07/27/2022, 07/26/2022, CTA chest 07/26/2022 TECHNIQUE: Portable frontal upright view of the chest. FINDINGS: There is a right basilar pigtail catheter. ??No pneumothorax. ??Hazy opacity at the lateral right lower lung likely related to loculated pleural effusion similar to prior. ??Small layering left pleural effusion with adjacent left basilar opacity may be slightly increased from prior. ??Subtle hazy opacity left mid and upper lung not significantly changed. ??The cardiomediastinal silhouette and pulmonary vasculature are within normal limits. ??Aortic calcification is seen. ??There are couple calcified granulomas. Procedure Note Harjinder Cobb MD - 07/28/2022 EXAMINATION: XR CHEST PORTABLE HISTORY:chest tube COMPARISON: Chest x-ray 07/27/2022, 07/26/2022, CTA chest 07/26/2022 TECHNIQUE: Portable frontal upright view of the chest. FINDINGS: There is a right basilar pigtail catheter. No pneumothorax. Hazy opacityat the lateral right lower lung likely related to loculated pleuraleffusion similar to prior. Small layering left pleural effusion withadjacent left basilar opacity may be slightly increased from prior.Subtle hazy opacity left mid and upper lung not significantly changed.The cardiomediastinal silhouette and pulmonary vasculature are withinnormal limits. Aortic calcification is seen. There are couple calcifiedgranulomas. IMPRESSION: 1. Right basilar pigtail catheter remains in place. Unchanged hazyopacity at the lateral lower right lung zone likely related to loculatedpleural effusion. 2. Small layering left pleural effusion with adjacent atelectasis orairspace disease at the left lung base may be slightly increased from mostrecent study. Subtle hazy opacities in the left mid and upper lung notsignificantly changed, could also relate to atelectasis or infiltrate. Referred By: PROVIDER NON-STAFF Interpreted By: Harjinder Cobb MD, 07/28/2022 1:18 AM us Rodney Nolasco MD GENERAL IMAGING Final Res ult * XR CHEST PORTABLE (07/27/2022 4:22 PM THERAPEUTIC SPECIALIST) Anatomical Region Laterality Modality Chest Radiographic Jasmina ging 07/27/2022 4:42 PM THERAPEUTIC SPECIALIST Impressions 07/27/2022 4:44 PM THERAPEUTIC SPECIALIST IMPRESSION: 1. Right-sided pigtail chest tube. 2. Bilateral pulmonary opacities. 3. Cardiomegaly. Pulmonary vascular congestion. Ordered By: RODNEY NOLASCO Interpreted By: Can Klein DO, 07/27/2022 4:42 PM Narrative 07/27/2022 4:44 PM THERAPEUTIC SPECIALIST EXAMINATION: XR CHEST PORTABLE HISTORY: Chest tube assessment. COMPARISON: Chest x-ray 07/26/2022. TECHNIQUE: Portable AP view chest. FINDINGS: There are bilateral pulmonary opacities. Probable small bilateral pleural effusions. There is a right-sided pigtail chest tube with the distal tip projecting over the medial right lung base. No mediastinal shift. Stable cardiomegaly. There are increased interstitial markings bilaterally. There is atherosclerotic calcification of the aorta. ?? Procedure Note Can Klein DO - 07/27/2022 EXAMINATION: XR CHEST PORTABLE HISTORY: Chest tube assessment. COMPARISON: Chest x-ray 07/26/2022. TECHNIQUE: Portable AP view chest. FINDINGS: There are bilateral pulmonary opacities. Probable small bilateral pleuraleffusions. There is a right-sided pigtail chest tube with the distal tipprojecting over the medial right lung base. No mediastinal shift. Stablecardiomegaly. There are increased interstitial markings bilaterally. Thereis atherosclerotic calcification of the aorta. IMPRESSION: 1. Right-sided pigtail chest tube. 2. Bilateral pulmonary opacities. 3. Cardiomegaly. Pulmonary vascular congestion. Ordered By: RODNEY NOLASCO Interpreted By: Can Klein DO, 07/27/2022 4:42 PM us Rodney Nolasco MD GENERAL IMAGING Final Res ult * USE ECHOCARDIOGRAM (07/27/2022 1:13 PM THERAPEUTIC SPECIALIST) Anatomical Region Laterality Modality Cardiac Echocardiogram 07/27/2022 12:4 4 PM THERAPEUTIC SPECIALIST Narrative 07/28/2022 6:32 AM THERAPEUTIC SPECIALIST ?Echocardiography Report Pat.Name: ??RAY PHILLIPS ? Pat.ID: ?[id number] ? St.Date: ?? 07/27/2022 ? Refer.MD: ??[id number] NON-STAFF PROVIDER ?EWDPROV ?EWDPROV Exam Time: 12:44:00 PM ? Study Type:ECHO WITH CARDIAC DOPPLER COMP Height: ?165 cm ?Weight: ?68 kg ? BSA: ? 1.75 m2 ?Age: ??1955,67Y ? Sex: ? M ? BP: ?138/68 ? HR: ?70 bpm ?Sonogrphr: Avery Marie RDCS ? Pat. Stat.:Inpatient ? Room: ?742 ? CPT - 4: ?87993 ? Reason for Study:Pericardial effusion Procedures: 2D, M-mode, Doppler, Color Flow, Portable, Strain Imaging ++++++++++++++++++++++++++++++++++++ SUMMARY: ++++++++++++++++++++++++++++++++++++ The left ventricular size is normal. The calculated ejection fraction is 61%. Wall motion appears normal in all segments. The right ventricle is normal in size and function. No evidence of pericardial effusion. Aortic root is mildly dilated. Ascending aorta is mildly dilated. Inferior vena cava shows >50% collapse with respiration consistent with normal right atrial pressure. No significant valvular heart disease. ++++++++++++++++++++++++++++++++++++ FINDINGS: ++++++++++++++++++++++++++++++++++++ LV: ? The left ventricular size is normal. The left ventricular ?systolic function is normal. The calculated ejection ?fraction is 61%. Mild concentric left ventricular ?hypertrophy. The septal E/e' is indeterminate at 8-15. The ?lateral E/e' is normal at <8. The average E/e' is ?indeterminate at 9-12 and EF is > or equal to 50. Left ?ventricular diastolic function is abnormal. Left ventricular ?filling pressure is indeterminate. The LV strain is -17.3%. ?(Normal ranges are -18% to -20%) WM: ? Wall motion appears normal in all segments. LVOT: ? The left ventricular outflow tract size is normal. RV: ? The right ventricular size is normal. Right ventricular ?systolic function is normal. TAPSE = 23mm (<16 mm indicates ?systolic RV dysfunction). LA: ? The left atrial volume is normal ( less than 34 ml/M2). RA: ? Right atrial size is normal. ANGELA: ? No evidence of pericardial effusion. AO: ? Aortic root is mildly dilated. Ascending aorta is mildly ?dilated. The aortic root measures 4.1 cm. The sinotubular ?junction measures 2.7cm. The proximal ascending aorta ?measures 3.7cm. PA: ? Estimated right atrial pressure of 3 mmHg. Unable to ?reliably quantitate pulmonary systolic pressure. SVn: ?Inferior vena cava is normal. Inferior vena cava shows >50% ?collapse with respiration consistent with normal right ?atrial pressure. AV: ? The aortic valve is trileaflet. No evidence of aortic valve ?stenosis. Trace aortic regurgitation. Dimensionless index of ?0.8. MV: ? Trace mitral regurgitation. No evidence of mitral stenosis. ?The mean gradient across the mitral valve is 2mmHg at a ?heart rate of 62bpm. PV: ? The pulmonic valve is normal There is trace pulmonic ?regurgitation TV: ? The tricuspid valve appears structurally normal. There is ?trace tricuspid regurgitation. ++++++++++++++++++++++++++++++++++++ MEASUREMENTS: ++++++++++++++++++++++++++++++++++++ ?DOPPLER LVOT ?? LVOTpkPG ? 5 mmHg ?LVOTmnPG ? 2 mmHg LVOTpkVel ?109 cm/s (70-110) LVOT SV ? 81 ml ?? LVOT TVI ?21.4 cm ?LVOT CO ? 85 ml/s AV Forward Flow AV TVI ?26.3 cm ?AV pkPG ?6 mmHg AV pkVel ? 126 cm/s (100-170) Area (TVI) ?3.09 cm2 ??(3-5) AV mnVel ?85.9 cm/s ?Area (Aravind) ?3.29 cm2 ??(3-5) AV mnPG ?3 mmHg ? MV Forward Flow MV DeTm ?272 msec ?MV pkPG ?5 mmHg MVA P1/2t ? 2.72 cm2 ??(4-6)* ?? MV E/A ? 0.7 ? MV P1/2t ?81 msec (30-60)+* MV pkE ?68.4 cm/s (60-130) MV mnPG ?2 mmHg ?MV pkA ?92.6 cm/s Lat E' ?? Lat e ?9.9 cm/s ? Lat E/E' ?? Lat E/e ?6.9 ? Med E' ?? Med e ? 7.07 cm/s ? Med E/E' ?? Med E/e ?9.7 ? Aortic Valve ?? Aortic Valve Ar ??1.77 ?Aortic Valve Ve ??0.87 ? AV DI ?? Value ?0.8 ? STEPHANY (VTI) Index ?? Value ? 1.77 ? LV Mass 2D ?? Value ?229 g ? LV Mass [id number] ?? Value ?131 g/m2 ? Right Ventricle ?? Right Ventricle ??14.3 cm/s ?2D Left Ventricle ?? LVIDd ? 5.05 cm ?? (3.6-5.2) LV EF(Bi-Plane) ??60.7 % ?(63-77)* LVIDs ?3.5 cm ?? (2.3-3.9) LVPW ?? LVPWd ? 1.16 cm ? Ventricular Septum ?? IVSd ?1.18 cm ? Aorta ?? Ao Rtd ? 4.1 cm ?? (zsc 4.7)* Ao Asc ? 3.7 cm ?? (zsc 4.9)* LVOT ?? LVOT ? 2.2 cm ? Ratios ?? IVS Aortic Sinotubular Junction ?? Diameter ?2.72 cm ? LA Biplane LAVol I BP ?31.9 ml/m2 ?MMODE TA ?? Tricuspid Annul ??2.26 cm ? <Electronic Signature> 07/28/2022 06:32 AM Olivia Giles M.D. Procedure Note Olivia Giles MD - 07/28/2022 Echocardiography Report Pat.Name: RAY PHILLIPS.ID: [id number] .Date: 07/27/2022 : [id number] NON-STAFF PROVIDER EWDPRORichard EWDPROV Exam Time: 12:44:00 PM Study Type:ECHO WITH CARDIAC DOPPLER COMP Height: 165 cm Weight: 68 kg BSA: 1.75 m2 Age: 9 1955,67Y Sex: M BP: 138/68 HR: 70 bpm Sonogrphr: Avery Marie RDCS Pat. Stat.:Inpatient Room: 742 CPT - 4: 72509 Reason for Study:Pericardial effusion Procedures: 2D, M-mode, Doppler, Color Flow, Portable, Strain Imaging ++++++++++++++++++++++++++++++++++++ SUMMARY: ++++++++++++++++++++++++++++++++++++ The left ventricular size is normal. The calculated ejection fraction is 61%. Wall motion appears normal in all segments. The right ventricle is normal in size and function. No evidence of pericardial effusion. Aortic root is mildly dilated. Ascending aorta is mildly dilated. Inferior vena cava shows >50% collapse with respiration consistent with normal right atrial pressure. No significant valvular heart disease. ++++++++++++++++++++++++++++++++++++ FINDINGS: ++++++++++++++++++++++++++++++++++++ LV: The left ventricular size is normal. The left ventricular systolic function is normal. The calculated ejection fraction is 61%. Mild concentric left ventricular hypertrophy. The septal E/e' is indeterminate at 8-15. The lateral E/e' is normal at <8. The average E/e' is indeterminate at 9-12 and EF is > or equal to 50. Left ventricular diastolic function is abnormal. Left ventricular filling pressure is indeterminate. The LV strain is -17.3%. (Normal ranges are -18% to -20%) WM: Wall motion appears normal in all segments. LVOT: The left ventricular outflow tract size is normal. RV: The right ventricular size is normal. Right ventricular systolic function is normal. TAPSE = 23mm (<16 mm indicates systolic RV dysfunction). LA: The left atrial volume is normal ( less than 34 ml/M2). RA: Right atrial size is normal. ANGELA: No evidence of pericardial effusion. AO: Aortic root is mildly dilated. Ascending aorta is mildly dilated. The aortic root measures 4.1 cm. The sinotubular junction measures 2.7cm. The proximal ascending aorta measures 3.7cm. PA: Estimated right atrial pressure of 3 mmHg. Unable to reliably quantitate pulmonary systolic pressure. SVn: Inferior vena cava is normal. Inferior vena cava shows >50% collapse with respiration consistent with normal right atrial pressure. AV: The aortic valve is trileaflet. No evidence of aortic valve stenosis. Trace aortic regurgitation. Dimensionless index of 0.8. MV: Trace mitral regurgitation. No evidence of mitral stenosis. The mean gradient across the mitral valve is 2mmHg at a heart rate of 62bpm. PV: The pulmonic valve is normal There is trace pulmonic regurgitation TV: The tricuspid valve appears structurally normal. There is trace tricuspid regurgitation. ++++++++++++++++++++++++++++++++++++ MEASUREMENTS: ++++++++++++++++++++++++++++++++++++ DOPPLER LVOT LVOTpkPG 5 mmHg LVOTmnPG 2 mmHg LVOTpkVel 109 cm/s (70-110) LVOT SV 81 ml LVOT TVI 21.4 cm LVOT CO 85 ml/s AV Forward Flow AV TVI 26.3 cm AV pkPG 6 mmHg AV pkVel 126 cm/s (100-170) Area (TVI) 3.09 cm2 (3-5) AV mnVel 85.9 cm/s Area (Aravind) 3.29 cm2 (3-5) AV mnPG 3 mmHg MV Forward Flow MV DeTm 272 msec MV pkPG 5 mmHg MVA P1/2t 2.72 cm2 (4-6)* MV E/A 0.7 MV P1/2t 81 msec (30-60)+* MV pkE 68.4 cm/s (60-130) MV mnPG 2 mmHg MV pkA 92.6 cm/s Lat E' Lat e 9.9 cm/s Lat E/E' Lat E/e 6.9 Med E' Med e 7.07 cm/s Med E/E' Med E/e 9.7 Aortic Valve Aortic Valve Ar 1.77 Aortic Valve Ve 0.87 AV DI Value 0.8 STEPHANY (VTI) Index Value 1.77 LV Mass 2D Value 229 g LV Mass Mycpt0F Value 131 g/m2 Right Ventricle Right Ventricle 14.3 cm/s 2D Left Ventricle LVIDd 5.05 cm (3.6-5.2) LV EF(Bi-Plane) 60.7 % (63-77)* LVIDs 3.5 cm (2.3-3.9) LVPW LVPWd 1.16 cm Ventricular Septum IVSd 1.18 cm Aorta Ao Rtd 4.1 cm (zsc 4.7)* Ao Asc 3.7 cm (zsc 4.9)* LVOT LVOT 2.2 cm Ratios IVS Aortic Sinotubular Junction Diameter 2.72 cm LA Biplane LAVol I BP 31.9 ml/m2 MMODE TA Tricuspid Annul 2.26 cm <Electronic Signature> 07/28/2022 06:32 AM Olivia Giles M.D. us Tracy Yo MD ECHO Final Result * IR MIDLINE PLACEMENT GREATER 3YR (07/27/2022 11:20 AM THERAPEUTIC SPECIALIST) Anatomical Region Laterality Modality Chest Interventional R adiology 07/27/2022 11:1 5 AM THERAPEUTIC SPECIALIST Impressions 07/27/2022 11:23 AM THERAPEUTIC SPECIALIST Impression: Successful image guided left basilic vein inserted midline line venous catheter. Plan: 1. ??Left midline venous catheter okay for immediate use. 2. ??IR follow-up as needed. Thank you for allowing Vascular Interventional Radiology to assist in this patient's care! Ordered By: TRACY YO Interpreted By: Reji Cantrell MD, 07/27/2022 11:15 AM Narrative 07/27/2022 11:23 AM THERAPEUTIC SPECIALIST IR MIDLINE VENOUS CATHETER PLACEMENT Pre op diagnosis: . IV access required. Midline requested. Post Op Diagnosis: same Procedure: Midline venous catheter placement. Grafts/Implants: 4 German midline venous catheter Interventional Radiologist: Óscar Combine Inspector: ASNON Keating tech Anesthesia: Local - 1% Lidocaine Technique /Findings: ?? Procedure and risks were discussed with patient including risks of bleeding, infection, thrombosis, possible injury to artery or nerve etc. Informed consent was obtained. The left arm was prepped and draped in sterile fashion. Maximal sterile barrier technique was utilized for the entire procedure including hand washing with conventional soap and water or an alcohol based hand rub as well as all elements of sterile ultrasound technique were utilized during this procedure. ?? Timeout was performed. Ultrasound demonstrated the left basilic ??vein to be patent. Permanent ultrasound image was acquired. ??Following administration of ??1% lidocaine local anesthetic and using real-time ultrasound guidance the basilic vein was easily accessed using micropuncture technique and wire was advanced centrally. Peel-away sheath was placed. A 4 German single lumen midline, 20 cm. This was advanced through the peel-away sheath and positioned under ultrasound guidance with tip at central basilic vein. Midline aspirated and flushed freely. Midline was secured in place with Stat Lock device and sterile dressing applied. No complications. Permanent ultrasound image was recorded. Radiation: Patient's radiation exposure - Reference Air Kerma ?? (Ka,r) N/A mGy for this procedure. Total fluoroscopy time: N/A Multiple permanent images were sent to PACS Drains: none Complications: none Estimated Blood Loss: <5 ml Specimens removed: none Condition: stable Procedure Note Reji Cantrell MD - 07/27/2022 IR MIDLINE VENOUS CATHETER PLACEMENT Pre op diagnosis: . IV access required. Midline requested. Post Op Diagnosis: same Procedure: Midline venous catheter placement. Grafts/Implants: 4 German midline venous catheter Interventional Radiologist: Óscar Combine Inspector: ANSON Keating tech Anesthesia: Local - 1% Lidocaine Technique /Findings: Procedure and risks were discussed with patient including risks ofbleeding, infection, thrombosis, possible injury to artery or nerve etc.Informed consent was obtained. The left arm was prepped and draped in sterile fashion. Maximal sterile barrier technique was utilized for the entire procedureincluding hand washing with conventional soap and water or an alcoholbased hand rub as well as all elements of sterile ultrasound techniquewere utilized during this procedure. Timeout was performed. Ultrasound demonstrated the left basilic vein to be patent. Permanentultrasound image was acquired. Following administration of 1% lidocainelocal anesthetic and using real-time ultrasound guidance the basilic veinwas easily accessed using micropuncture technique and wire was advancedcentrally. Peel-away sheath was placed. A 4 German single lumen midline,20 cm. This was advanced through the peel-away sheath and positioned underultrasound guidance with tip at central basilic vein. Midline aspirated and flushed freely. Midline was secured in place withStat Lock device and sterile dressing applied. No complications. Permanentultrasound image was recorded. Radiation: Patient's radiation exposure - Reference Air Kerma (Ka,r) N/AmGy for this procedure. Total fluoroscopy time: N/A Multiple permanent images were sent to PACS Drains: none Complications: none Estimated Blood Loss: <5 ml Specimens removed: none Condition: stable Impression: Successful image guided left basilic vein inserted midline line venouscatheter. Plan: 1. Left midline venous catheter okay for immediate use. 2. IR follow-up as needed. Thank you for allowing Vascular Interventional Radiology to assist in thispatient's care! Ordered By: TRACY YO Interpreted By: Reji Cantrell MD, 07/27/2022 11:15 AM Tracy Yo MD INTERVENTIONAL RADIOL OGY Final Result * CT GD CHEST TUBE INSERT RT (07/27/2022 10:57 AM THERAPEUTIC SPECIALIST) Anatomical Region Laterality Modality Chest Computed Tomogra phy 07/27/2022 12:0 5 PM THERAPEUTIC SPECIALIST Impressions 07/27/2022 12:13 PM THERAPEUTIC SPECIALIST IMPRESSION: Successful CT-guided right thoracostomy tube placement as described. The stopcock will initially be left in the closed position for fibrinolytic 4 hour dwell time. The tube will then be placed to low wall suction. Output and serial radiographs will be monitored to determine further management. Ordered By: FLORENCIO AMAYA Interpreted By: Raul Osuna MD, 07/27/2022 12:05 PM Narrative 07/27/2022 12:13 PM THERAPEUTIC SPECIALIST PROCEDURE: CT-guided right thoracostomy tube placement Indication: Necrotizing pneumonia with loculated hydropneumothorax Physicians: Raul Osuna M.D. (attending); Rodney Nolasco M.D. (resident) Following informed consent, including discussion of procedural risks, the patient was place in the left lateral decubitus position on the CT table and Cadott protocol was observed to verify correct patient, site, and procedure to be performed. Preliminary CT images were obtained through the region of interest. A safe anterior intercostal path of approach to the loculated right hydropneumothorax was chosen . Suitable skin site was marked. The site was prepped and draped in sterile fashion using maximum sterile barrier techniques. Local anesthesia was achieved using buffered 1% lidocaine, and a small dermatotomy was created. Under intermittent CT guidance, a one-step sheath needle was placed into the pleural collection with return of minimal venegas-brown fluid. Position was also confirmed by CT. The tract was dilated to 12 German. During dilation, there was temporary retraction of the wire resulting in slight kinking and difficulty advancing the tube. Access was again regained using the one-step sheath needle, followed again by CT confirmation of position, wire placement, and tract dilation. A 12-German pigtail drainage catheter with the locking stitch removed was advanced into the right pleural space. Position was confirmed by CT. Aspiration yielded approximately 20 mL 10 cloudy fluid as well as gas. External portion of the tube was secured with an interrupted 2-0 Ethilon suture and stay fix device. The tube was connected to a Pleur-evac system. 2 mg TPA in 20 mL sterile saline were demonstrated through the tube into the pleural space, and the stopcock was then placed in a closed position to allow a 4 hour TPA 12 time. A sterile dressing was applied. There were no immediate complications. Medications: IV analgesia utilizing 50 mcg fentanyl EBL: <10 mL A dose lowering technique was used for this procedure, which may include, but is not limited to, dose reduction technique, automated exposure control, the use of iterative reconstruction, and ALARA (As Low As Reasonably Achievable) / Image Gently techniques. Procedure Note Raul Osuna MD - 07/27/2022 PROCEDURE: CT-guided right thoracostomy tube placement Indication: Necrotizing pneumonia with loculated hydropneumothorax Physicians: Raul Osuna M.D. (attending); Rodney Nolasco M.D.(resident) Following informed consent, including discussion of procedural risks, thepatient was place in the left lateral decubitus position on the CT tableand Cadott protocol was observed to verify correct patient, site, andprocedure to be performed. Preliminary CT images were obtained through the region of interest. A safeanterior intercostal path of approach to the loculated righthydropneumothorax was chosen . Suitable skin site was marked. The site wasprepped and draped in sterile fashion using maximum sterile barriertechniques. Local anesthesia was achieved using buffered 1% lidocaine, gene small dermatotomy was created. Under intermittent CT guidance, aone-step sheath needle was placed into the pleural collection with returnof minimal venegas-brown fluid. Position was also confirmed by CT. The tractwas dilated to 12 German. During dilation, there was temporary retractionof the wire resulting in slight kinking and difficulty advancing the tube.Access was again regained using the one-step sheath needle, followed againby CT confirmation of position, wire placement, and tract dilation. [id number] pigtail drainage catheter with the locking stitch removed wasadvanced into the right pleural space. Position was confirmed by CT.Aspiration yielded approximately 20 mL 10 cloudy fluid as well as gas.External portion of the tube was secured with an interrupted 2-0 Ethilonsuture and stay fix device. The tube was connected to a Pleur-evac system.2 mg TPA in 20 mL sterile saline were demonstrated through the tube intothe pleural space, and the stopcock was then placed in a closed positionto allow a 4 hour TPA 12 time. A sterile dressing was applied. There were no immediate complications. Medications: IV analgesia utilizing 50 mcg fentanyl EBL: <10 mL A dose lowering technique was used for this procedure, which may include,but is not limited to, dose reduction technique, automated exposurecontrol, the use of iterative reconstruction, and ALARA (As Low AsReasonably Achievable) / Image Gently techniques. IMPRESSION: Successful CT-guided right thoracostomy tube placement as described. Thestopcock will initially be left in the closed position for fibrinolytic 4hour dwell time. The tube will then be placed to low wall suction. Outputand serial radiographs will be monitored to determine furthermanagement. Ordered By: FLORENCIO AMAYA Interpreted By: Raul Osuna MD, 07/27/2022 12:05 PM us Florencio Amaya MD CT Final Result * CULTURE, ANAEROBIC (07/27/2022 10:30 AM THERAPEUTIC SPECIALIST) SPEC DESCRIPTION SITE: RT PLEURAL FLUID 07/27/2022 12:59 PM THERAPEUTIC SPECIALIST [facility] SPECIAL REQUESTS NO SPECIAL REQUEST 07/27/2022 12:59 PM THERAPEUTIC SPECIALIST [facility] CULTURE RESULT FEW MICROAEROPHILIC STREPTOCOCCUS 07/30/2022 5:41 PM THERAPEUTIC SPECIALIST [facility] SPECIMEN FROM UNSPECIFIED BODY SITE / Unknown 07/27/2022 10:30 AM THERAPEUTIC SPECIALIST 07/27/2022 12:08 PM THERAPEUTIC SPECIALIST Comment:RT PLEURAL FLUID Narrative Organism Antibiotic Method Susceptibility Microaerophilic streptococcus CEFOTAXIME ARLEN (ETEST) 0.023: Sensitive Microaerophilic streptococcus PENICILLIN G ARLEN (ETEST) 0.008: Sensitive us Florencio Amaya MD MICROBIOLOGY - GENERAL ORDERABLE S Final Result [facility] [address] [place] [address], [phone] * CULTURE, BODY FLUID W/ GRAM STAIN (07/27/2022 10:30 AM THERAPEUTIC SPECIALIST) SPEC DESCRIPTION PLEURAL FLUID: RT 07/27/2022 12:09 PM THERAPEUTIC SPECIALIST [facility] SPECIAL REQUESTS NO SPECIAL REQUEST 07/27/2022 12:09 PM THERAPEUTIC SPECIALIST [facility] GRAM STAIN RESULT MANY NEUTROPHILS SEEN 07/27/2022 4:31 PM THERAPEUTIC SPECIALIST [facility] GRAM STAIN RESULT NO ORGANISMS SEEN 07/27/2022 4:31 PM THERAPEUTIC SPECIALIST [facility] CULTURE RESULT RARE STAPHYLOCOCCUS EPIDERMIDIS 07/31/2022 7:51 AM THERAPEUTIC SPECIALIST [facility] PLEURAL FLUID SPECIMEN / Unknown 07/27/2022 10:30 AM THERAPEUTIC SPECIALIST 07/27/2022 12:08 PM THERAPEUTIC SPECIALIST Comment:RT Narrative Organism Antibiotic Method Susceptibility Staphylococcus epidermidis CLINDAMYCIN ARLEN (VITEK) Sensitive Staphylococcus epidermidis ERYTHROMYCIN ARLEN (VITEK) Sensitive Staphylococcus epidermidis GENTAMICIN ARLEN (VITEK) Sensitive Staphylococcus epidermidis OXACILLIN ARLEN (VITEK) Sensitive Staphylococcus epidermidis PENICILLIN G ARLEN (VITEK) Resistant Staphylococcus epidermidis RIFAMPIN ARLEN (VITEK) Sensitive Staphylococcus epidermidis TRIMETH-SULFAMETH. ARLEN (VIT EK) Resistant Staphylococcus epidermidis TETRACYCLINE ARLEN (VITEK) Sensitive Staphylococcus epidermidis VANCOMYCIN ARLEN (VITEK) Sensitive Florencio Amaya MD MICROBIOLOGY - GENERAL ORDERABLE S Final Result Performing Organization Address [facility] de Phone Number [facility] [address] [place] [address], [phone] * PROTEIN TOTAL FLUID (07/27/2022 10:30 AM THERAPEUTIC SPECIALIST) PROTEIN (FLUID) 3.5 G/DL 3:22 PM THERAPEUTIC SPECIALIST [facility] Comment:REFERENCE RANGE NOT ESTABLISHED FOR THIS BODY FLUID. SOURCE (FLUID) PLEURAL FLUID 07/27/2022 10:53 AM THERAPEUTIC SPECIALIST [facility] PLEURAL FLUID SPECIMEN / Unknown 07/27/2022 10:30 AM THERAPEUTIC SPECIALIST Tracy Yo MD BODY FLUIDS AND STOOL S ORDERABLES Final Result Performing Organization Address [facility] de Phone Number [facility] [address] [place] [address], [phone] * CELL COUNT W/ DIFF BODY FLUID (07/27/2022 10:30 AM THERAPEUTIC SPECIALIST) SOURCE (FLUID) PLEURAL FLUID 022 3:08 PM THERAPEUTIC SPECIALIST [facility] WBC (FLUID) 144.450 x10'3/uL 07/27/2022 3:08 PM THERAPEUTIC SPECIALIST [facility] Comment:REFERENCE RANGE NOT ESTABLISHED RBC (FLUID) 0.090 x10'6/uL 07/27/2022 3:08 PM THERAPEUTIC SPECIALIST [facility] Comment:REFERENCE RANGE NOT ESTABLISHED DIFFERENTIAL MANUAL DIFFERENTIAL PERFORMED ON CONCENTRATED CYTOSPIN 07/27/2022 10:53 AM THERAPEUTIC SPECIALIST [facility] CELLS COUNTED 100 No COUNTED 07/27/2022 3:45 PM THERAPEUTIC SPECIALIST [facility] SEGS (FLUID) 97 % 07/27/2022 3:45 PM THERAPEUTIC SPECIALIST [facility] LYMPHS (FLUID) 3 % 07/27/2022 3:45 PM THERAPEUTIC SPECIALIST [facility] PLEURAL FLUID SPECIMEN / Unknown 07/27/2022 10:30 AM THERAPEUTIC SPECIALIST us Tracy Yo MD BODY FLUIDS AND STOOL S ORDERABLES Final Result Performing Organization Address [facility] Co de Phone Number [facility] [address] [place] [address], [place] [phone] * LDH BODY FLUID (07/27/2022 10:30 AM THERAPEUTIC SPECIALIST) LDH (FLUID) >4,000 UNITS/L 07/27/2022 3:22 PM THERAPEUTIC SPECIALIST [facility] Comment:REFERENCE RANGE NOT ESTABLISHED FOR THIS BODY FLUID. SOURCE (FLUID) PLEURAL FLUID 07/27/2022 10:53 AM THERAPEUTIC SPECIALIST [facility] PLEURAL FLUID SPECIMEN / Unknown 07/27/2022 10:30 AM THERAPEUTIC SPECIALIST us Tracy Yo MD BODY FLUIDS AND STOOL S ORDERABLES Final Result Performing Organization Address City/[facility]/ZIP Co de Phone Number [facility] [address] [place] [address], [place] [phone] * TRANSFUSE RED BLOOD CELLS (07/27/2022 7:04 AM THERAPEUTIC SPECIALIST) us Florencio Amaya MD NURSING TREATMENT ORDERABLES - B LOOD ADMIN Final Result * TRANSFUSE RED BLOOD CELLS, 1 Units (07/27/2022 7:04 AM THERAPEUTIC SPECIALIST) us Florencio Amaya MD NURSING TREATMENT ORDERABLES - B LOOD ADMIN Final Result * (ABNORMAL) BMP WITHOUT GLUCOSE (07/27/2022 2:40 AM THERAPEUTIC SPECIALIST) SODIUM S/P/B 138 136 - 145 MMOL/L 07/27/2022 3:30 AM [facility] POTASSIUM S/P/B 3.7 3.5 - 5.1 MMOL/L 07/27/2022 3:30 AM [facility] CHLORIDE S/P/B 106 98 - 107 MMOL/L 07/27/2022 3:30 AM [facility] CO2 26.0 21.0 - 32.0 MMOL/L 07/27/2022 3:30 AM [facility] BUN 22(H) 7 - 18 MG/DL 07/27/2022 3:30 AM [facility] CREATININE S/P/B 0.91 0.70 - 1.30 MG/DL 07/27/2022 3:30 AM [facility] CALCIUM S/P/B 8.2(L) 8.5 - 10.1 MG/DL 07/27/2022 3:30 AM [facility] ANION GAP 6.0 5.0 - 15.0 MMOL/L 07/27/2022 3:30 AM [facility] GFR ESTIMATE >90 >90 ML/MIN/1. 73 M2 07/27/2022 3:30 AM [facility] GFR NOTES GFR REFERENCE S: 07/27/2022 3:30 AM [facility] Comment: THE ESTIMATED GFR IS [...] ml/min/1.73 m2 G5,KIDNEY FAILURE: <15 ml/min/1.73 m2 07/27/2022 2:40 AM THERAPEUTIC SPECIALIST Florencio Amaya MD LABORATORY Final Result [facility] [address] [place] [address], [phone] * (ABNORMAL) CBC W/DIFF AUTOMATED (07/27/2022 2:40 AM THERAPEUTIC SPECIALIST) WBC 21.3(H) 4.0 - 10.8 x10'3/uL 07/27/2022 3:07 AM [facility] RBC 1.98(L) 4.50 - 6.10 x10'6/uL 07/27/2022 3:07 AM [facility] HGB 6.5(LL) 13.0 - 18.0 G/DL 07/27/2022 3:07 AM [facility] Comment: CRITICAL RESULT, SPECIMEN DATE, TIME WERE READ BACK BY ALANNAH LINCOLN @0307 07.27.22 BY JOSÉ MIGUEL HCT 20.2(L) 37.0 - 52.0 % 07/27/2022 3:07 AM [facility] MCV 102.0(H) 78.0 - 100.0 FL 07/27/2022 3:07 AM THERAPEUTIC SPECIALIST [facility] MCH 32.8(H) 27.0 - 31.0 PG 07/27/2022 3:07 AM [facility] MCHC 32.2(L) 33.0 - 36.0 G/DL 07/27/2022 3:07 AM [facility] RDW 14.2 11.5 - 14.5 % 07/27/2022 3:07 AM [facility] PLT 347 150 - 350 x10'3/uL 07/27/2022 3:07 AM [facility] MPV 10.4 7.4 - 10.4 FL 07/27/2022 3:07 AM [facility] ABS. NEUTROPHILS 20.24(H) 1.60 - 8.30 x10'3/uL 07/27/2022 3:25 AM [facility] ABS. NEUTROPHILS CALCULATED 19.17(H) 1.60 - 7.30 x10'3/uL 07/27/2022 3:25 AM [facility] ABS. LYMPHOCYTES 0.85 0.80 - 4.70 x10'3/uL 07/27/2022 3:25 AM [facility] ABS. MONOCYTES 0.21 0.00 - 1.50 x10'3/uL 07/27/2022 3:25 AM [facility] ABS. EOSINOPHILS 0.00 0.00 - 0.40 x10'3/uL 07/27/2022 3:25 AM [facility] ABS. BASOPHILS 0.00 0.00 - 0.20 x10'3/uL 07/27/2022 3:25 AM [facility] ABS. METAMYELOCYTES 0.64(H) 0.00 x10'3/uL 07/27/2022 3:25 AM [facility] ABS. MYELOCYTES 0.21(H) 0.00 x10'3/uL 07/27/2022 3:25 AM [facility] ABS. PROMYELOCYTES 0.21(H) 0.00 x10'3/uL 07/27/2022 3:25 AM [facility] ABS. NUCLEATED RBC'S 0.00 0.0 x10'3/uL 07/27/2022 3:25 AM [facility] RBC MORPHOLOGY POLYCHROMASIA 022 3:25 AM [facility] Comment: SLIGHT ANISOCYTOSIS SLIGHT MACROCYTOSIS SLIGHT PLT MORPH. NORMAL 07/27/2022 3:25 AM [facility] 07/27/2022 2:40 AM THERAPEUTIC SPECIALIST Florencio Amaya MD LABORATORY Final Result [facility] [address] [place] [address], [phone] * (ABNORMAL) PROCALCITONIN (PCT) (07/26/2022 12:55 PM THERAPEUTIC SPECIALIST) Procalcitonin 1.83(H) <0.50 NG/ML 07/27/2022 9:06 AM THERAPEUTIC SPECIALIST [facility] 07/26/2022 12:5 5 PM THERAPEUTIC SPECIALIST Patel Kelsey MD LABORATORY Final Result Performing Organization Address [facility] Co de Phone Number [facility] [address] [place] [address], [id number] * BLASTOMYCES AB PANEL, (CF, ID) (07/26/2022 12:55 PM THERAPEUTIC SPECIALIST) BLASTOMYCES AB FIXATION <1:8 <1:8 08/02/2022 5:09 PM THERAPEUTIC SPECIALIST [facility]front[facility] UMA GARNETT Comment: Interpretive Criteria: ? <1:8 ??Antibody Not Detected > or = 1:8 ??Antibody Detected Although titers of 1:8 and greater are considered positive, confirmed serological diagnosis of blastomycosis by the CF test requires a four-fold or greater increase in titer between acute and convalescent specimens, and lack of corresponding titers to C. immitis and H. capsulatum. Specificity can only be demonstrated by immunodiffusion procedures. A negative CF test does not rule out the diagnosis of active blastomycosis, as less than 50% of sera from patients with proven blastomycosis are positive by this assay. This test was developed and its analytical performance characteristics have been determined by [employer] [place], [place]. It has not been cleared or approved by the U.S. Food and Drug Administration. This assay has been validated pursuant to the CLIA regulations and is used for clinical purposes. BLASTO IMMUNODIFFUSION Negative Negative 08/02/2022 5:09 PM THERAPEUTIC SPECIALIST [employer]front[facility] ALFERN GARNETT Comment: ?Interpretive Criteria: ?? Negative: Antibody not detected ?? Positive: Antibody detected A positive result is diagnostic of active or recent blastomycosis and is found in approximately 80% of proven cases of blastomycosis. Test Performed by [facility], [employer], [address] [place] [address] Adrián Balderas M.D., Ph.D., Director of Laboratories , CLIA [id number] 07/26/2022 12:5 5 PM THERAPEUTIC SPECIALIST us Sergio Raza MD LABORATORY Final Result [facility] [address] , * HISTOPLASMA ANTIBODY PANEL (CF,IM) (07/26/2022 12:55 PM THERAPEUTIC SPECIALIST) HISTOPLASMA YEAST AB <1:8 <1:8 08/02/2022 5:09 PM THERAPEUTIC SPECIALIST [facility] HISTOPLASMA MYCELIAL AB <1:8 <1:8 08/02/2022 5:09 PM THERAPEUTIC SPECIALIST I-frontdesk MELENDEZFERN GARCIA Comment: Interpretive Criteria: ? <1:8 - Antibody Not Detected > or = 1:8 - Antibody Detected Complement-fixation (CF) titers greater than or equal to 1:8 are generally considered evidence indicative of histoplasmosis. Higher titers increase the probability of infection. However, positive titers are also seen with fungal infections other than histoplasmosis, and confirmation of antibody specificity with immunodiffusion procedures is recommended. Changing titers are useful both in diagnosis and in assessment of treatment efficacy. This test was developed and its analytical performance characteristics have been determined by [facility] [place] It has not been cleared or approved by the FDA. This assay has been validated pursuant to the CLIA regulations and is used for clinical purposes. HISTOPLASMA CAPSULATUM H AB Negative Negative 08/02/2022 5:09 PM THERAPEUTIC SPECIALIST I-front[facility]k MELENDEZShellyFERN GARNETT Comment: This immunodiffusion assay is highly specific for Histoplasmosis infection but may have low sensitivity in early infection. Two different immunoprecipitin bands may be detected. The M band develops with acute infection, is often present in chronic infection, and may persist for months to years. The M band may be detected in persons with recent histoplasmin skin testing. The H band, which is usually present with the M band, generally suggests a chronic or severe acute infection. The presence of both the H and M bands is considered conclusive for the diagnosis of histoplasmosis. Test Performed by [facility], [employer] [facility], [address] [place] [address] Adrián Balderas M.D., Ph.D., Director of Laboratories , CLIA [id number] HISTOPLASMA CAPSULATUM M AB Negative Negative 08/02/2022 5:09 PM THERAPEUTIC SPECIALIST [employer] UMA GARNETT 07/26/2022 12:5 5 PM THERAPEUTIC SPECIALIST Sergio Raza MD LABORATORY Final Result Performing Organization Address [facility] Co de Phone Number [facility] [address] [phone], * (ABNORMAL) HEMOGLOBIN AND HEMATOCRIT (07/26/2022 12:55 PM THERAPEUTIC SPECIALIST) Pathologist [facility] HGB 7.1(L) 13.0 - 18.0 G/DL 07/26/2022 1:14 PM THERAPEUTIC SPECIALIST [facility] HCT 21.5(L) 37.0 - 52.0 % 07/26/2022 1:14 PM THERAPEUTIC SPECIALIST [facility] 07/26/2022 12:5 5 PM THERAPEUTIC SPECIALIST Tracy Yo MD LABORATORY Final Result Performing Organization Address City/[facility]/ZIP Co de Phone Number [facility] [address] [place] [address], [place] [phone] * BLOOD SMEAR INTERPRETATION BY (07/26/2022 9:04 AM THERAPEUTIC SPECIALIST) CBC PATHOLOGIST COMMENT DUPLICATE. SAME TEST ORDERED BY DIFFERENT DOCTORS. 07/26/2022 11:20 AM THERAPEUTIC SPECIALIST [facility] Comment: CORRECTED ON 07/26 AT 1120: Previously reported as SENT TO PATHOLOGIST FOR REVIEW 07/26/2022 9:04 AM THERAPEUTIC SPECIALIST us Florencio Amaya MD LABORATORY Edited Result - Final Performing Organization Address [facility] Co de Phone Number [facility] [address] [place] [address], [place] [phone] * (ABNORMAL) HAPTOGLOBIN, QUANT (07/26/2022 9:04 AM THERAPEUTIC SPECIALIST) HAPTOGLOBIN 412.0(H) 30.0 - 200.0 MG/DL 07/26/2022 9:55 AM THERAPEUTIC SPECIALIST [facility] 07/26/2022 9:04 AM THERAPEUTIC SPECIALIST us Florencio Amaya MD LABORATORY Final Result Performing Organization Address [facility] Co de Phone Number [facility] [address] [place] [address], [phone] * XR CHEST PORTABLE (07/26/2022 6:55 AM THERAPEUTIC SPECIALIST) Anatomical Region Laterality Modality Chest Radiographic Jasmina ging 07/26/2022 7:27 AM THERAPEUTIC SPECIALIST Impressions 07/26/2022 7:29 AM THERAPEUTIC SPECIALIST IMPRESSION: Loculated effusion on the right. ??Bilateral pulmonary opacifications due to atelectasis or infiltrate greatest in the right lower lung and throughout the left lung. Left effusion. Referred By: PROVIDER NON-STAFF Interpreted By: Rudy Montaño MD, 07/26/2022 7:27 AM Narrative 07/26/2022 7:29 AM THERAPEUTIC SPECIALIST Procedure(s): XR CHEST PORTABLE Date of service: 07/26/2022 6:51 AM Provided clinical information: 67 years, Male, f/up right sided effusion Procedure and materials: AP portable Comparison studies: August 17, 2021 Observations: ?? Patient's rotated in examination. ??Cardiac silhouette is within normal limits. ??Right lateral lung opacification is present which is due to loculated effusion seen on chest CT of July 26 12:21 AM.. ??Right lower lung opacifications are present due to atelectasis or infiltrate. ??Left lung opacification due to atelectasis or infiltrate and small left effusion. Procedure Note Rudy Montaño MD - 07/26/2022 Procedure(s): XR CHEST PORTABLE Date of service: 07/26/2022 6:51 AM Provided clinical information: 67 years, Male, f/up right sidedeffusion Procedure and materials: AP portable Comparison studies: August 17, 2021 Observations: Patient's rotated in examination. Cardiac silhouette is within normallimits. Right lateral lung opacification is present which is due toloculated effusion seen on chest CT of July 26 12:21 AM.. Right lowerlung opacifications are present due to atelectasis or infiltrate. Leftlung opacification due to atelectasis or infiltrate and small lefteffusion. IMPRESSION: Loculated effusion on the right. Bilateral pulmonary opacifications dueto atelectasis or infiltrate greatest in the right lower lung andthroughout the left lung. Left effusion. Referred By: PROVIDER NON-STAFF Interpreted By: Rudy Montaño MD, 07/26/2022 7:27 AM Davie Prabhakar MD GENERAL IMAGING Final Result * (ABNORMAL) C-REACTIVE PROTEIN (07/26/2022 2:38 AM THERAPEUTIC SPECIALIST) C-REACTIVE PROTEIN 12.30(H) <0.80 mg/dL 07/26/2022 3:37 AM THERAPEUTIC SPECIALIST [facility] 07/26/2022 2:38 AM THERAPEUTIC SPECIALIST us Tracy Yo MD LABORATORY Final Result Performing Organization Address [facility] Co de Phone Number [facility] [address] [place] [address], [phone] * (ABNORMAL) SED RATE, ERYTHROCYTE (ESR,WSR) (07/26/2022 2:38 AM THERAPEUTIC SPECIALIST) ESR 45(H) 0 - 15 MM/HR 07/26/2022 3:27 AM THERAPEUTIC SPECIALIST [facility] 07/26/2022 2:38 AM THERAPEUTIC SPECIALIST us Tracy Yo MD LABORATORY Final Result Performing Organization Address [facility] de Phone Number [facility] [address] [place] [address], [phone] * (ABNORMAL) ARTERIAL BLOOD GAS (07/26/2022 2:38 AM THERAPEUTIC SPECIALIST) PH ARTERIAL 7.43 7.35 - 7.45 07/26/2022 3:01 AM THERAPEUTIC SPECIALIST [facility] PCO2 37.3 35.0 - 45.0 MMHG 07/26/2022 3:01 AM [facility] PO2 71.8(L) 83.0 - 108.0 MMHG 07/26/2022 3:01 AM THERAPEUTIC SPECIALIST [facility] BICARB ARTERIAL 24.1 22 - 26 MMOL/L 07/26/2022 3:01 AM [facility] TCO2 25.3 23 - 27 MMOL/L 07/26/2022 3:01 AM [facility] BE/BASE EXCESS 0.4 0 - 2 MMOL/L 07/26/2022 3:01 AM THERAPEUTIC SPECIALIST [facility] O2 Saturation 93(L) 95 - 98 % 07/26/2022 3:01 AM [facility] 07/26/2022 2:38 AM THERAPEUTIC SPECIALIST Ann Hammond NP LABORATORY Final Result [facility] [address] [place] [address], [phone] * (ABNORMAL) CBC W/DIFF AUTOMATED (07/26/2022 2:38 AM THERAPEUTIC SPECIALIST) WBC 17.5(H) 4.0 - 10.8 x10'3/uL 07/26/2022 3:40 AM [facility] RBC 2.26(L) 4.50 - 6.10 x10'6/uL 07/26/2022 3:40 AM [facility] HGB 7.6(L) 13.0 - 18.0 G/DL 07/26/2022 3:40 AM [facility] HCT 22.9(L) 37.0 - 52.0 % 07/26/2022 3:40 AM [facility] MCV 101.3(H) 78.0 - 100.0 FL 07/26/2022 3:40 AM [facility] MCH 33.6(H) 27.0 - 31.0 PG 07/26/2022 3:40 AM THERAPEUTIC SPECIALIST [facility] MCHC 33.2 33.0 - 36.0 G/DL 07/26/2022 3:40 AM [facility] RDW 13.8 11.5 - 14.5 % 07/26/2022 3:40 AM [facility] PLT 283 150 - 350 x10'3/uL 07/26/2022 3:40 AM [facility] MPV 10.6(H) 7.4 - 10.4 FL 07/26/2022 3:40 AM [facility] ABS. NEUTROPHILS 16.80(H) 1.60 - 8.30 x10'3/uL 07/26/2022 4:48 AM [facility] ABS. NEUTROPHILS CALCULATED 16.45(H) 1.60 - 7.30 x10'3/uL 07/26/2022 4:48 AM [facility] BANDS 0.18 0.00 - 1.00 x10'3/uL 07/26/2022 4:48 AM [facility] ABS. LYMPHOCYTES 0.53(L) 0.80 - 4.70 x10'3/uL 07/26/2022 4:48 AM [facility] ABS. MONOCYTES 0.18 0.00 - 1.50 x10'3/uL 07/26/2022 4:48 AM [facility] ABS. EOSINOPHILS 0.00 0.00 - 0.40 x10'3/uL 07/26/2022 4:48 AM [facility] ABS. BASOPHILS 0.00 0.00 - 0.20 x10'3/uL 07/26/2022 4:48 AM [facility] ABS. MYELOCYTES 0.18(H) 0.00 x10'3/uL 07/26/2022 4:48 AM [facility] ABS. NUCLEATED RBC'S 0.18(H) 0.0 x10'3/uL 07/26/2022 4:48 AM [facility] RBC MORPHOLOGY POLYCHROMASIA 022 4:48 AM [facility] Comment: SLIGHT POIKILOCYTOSIS SLIGHT WBC MORPHOLOGY HYPERSEGMENTATION 4:48 AM [facility] Comment: TOXIC GRANULATION VACUOLATED NEUTROPHILS PLT MORPH. NORMAL 07/26/2022 4:48 AM [facility] 07/26/2022 2:38 AM THERAPEUTIC SPECIALIST Ann Hammond NP LABORATORY Final Result Performing Organization Address [facility]/ZIP Co de Phone Number [facility] [address] [place] [address], [phone] * (ABNORMAL) LDH, LACTATE DEHYDROGENASE (07/26/2022 2:38 AM THERAPEUTIC SPECIALIST) LDH 265(H) 87 - 241 UNITS/L 07/26/2022 3:37 AM THERAPEUTIC SPECIALIST [facility] Comment:RESULT QUESTIONABLE DUE TO HEMOLYSIS, RECOMMEND RECOLLECTION. 07/26/2022 2:38 AM THERAPEUTIC SPECIALIST Tracy Yo MD LABORATORY Final Result Performing Organization Address [facility] de Phone Number [facility] [address] [place] [address], [phone] * (ABNORMAL) COMPREHENSIVE METABOLIC PANEL (07/26/2022 2:38 AM THERAPEUTIC SPECIALIST) SODIUM S/P/B 135(L) 136 - 145 MMOL/L 07/26/2022 3:37 AM [facility] POTASSIUM S/P/B 4.5 3.5 - 5.1 MMOL/L 07/26/2022 3:37 AM [facility] Comment:SLIGHT HEMOLYSIS, RE SULT MAY BE AFFECTED. CHLORIDE S/P/B 105 98 - 107 MMOL/L 07/26/2022 3:37 AM THERAPEUTIC SPECIALIST [facility] CO2 26.8 21.0 - 32.0 MMOL/L 07/26/2022 3:37 AM [facility] GLUCOSE 137(H) 74 - 106 MG/DL 07/26/2022 3:37 AM [facility] BUN 15 7 - 18 MG/DL 07/26/2022 3:37 AM [facility] CREATININE S/P/B 0.66(L) 0.70 - 1.30 MG/DL 07/26/2022 3:37 AM [facility] CALCIUM S/P/B 8.1(L) 8.5 - 10.1 MG/DL 07/26/2022 3:37 AM [facility] BILIRUBIN TOTAL S/P/B 0.2 0.2 - 1.0 MG/DL 07/26/2022 3:37 AM [facility] ALKALINE PHOSPHATASE S/P/B 60 45 - 115 U/L 07/26/2022 3:37 AM [facility] AST 19 15 - 37 U/L 07/26/2022 3:37 AM [facility] ALT 20 16 - 61 U/L 07/26/2022 3:37 AM [facility] TOTAL PROTEIN S/P/B 5.3(L) 6.4 - 8.2 G/DL 07/26/2022 3:37 AM [facility] ALBUMIN S/P/B 1.5(L) 3.4 - 5.0 G/DL 07/26/2022 3:37 AM [facility] ANION GAP 3.2(L) 5.0 - 15.0 MMOL/L 07/26/2022 3:37 AM [facility] OSMOLALITY (CALC) 283 MOSM/KG 022 3:37 AM [facility] Comment:REFERENCE RANGE NOT ESTABLISHED GFR ESTIMATE >90 >90 ML/MIN/1. 73 M2 07/26/2022 3:37 AM [facility] GFR NOTES GFR REFERENCE S: 07/26/2022 3:37 AM [facility] Comment: THE ESTIMATED GFR IS [...] ml/min/1.73 m2 G5,KIDNEY FAILURE: <15 ml/min/1.73 m2 07/26/2022 2:38 AM THERAPEUTIC SPECIALIST Tracy Yo MD LABORATORY Final Result [facility] [address] [place] [address], [place] [phone] * CTA CHEST+ABD+PEL (07/26/2022 12:32 AM THERAPEUTIC SPECIALIST) Anatomical Region Laterality Modality Chest, Abdomen, Pelvis Computed Tomography 07/26/2022 12:5 6 AM THERAPEUTIC SPECIALIST Impressions 07/26/2022 1:23 AM THERAPEUTIC SPECIALIST IMPRESSION: 1. ??Air-fluid level within loculated fluid collection in the right posterior pleural cavity related to loculated hydropneumothorax, empyema or abscess versus bronchopleural fistula. ??Please correlate clinically. 2. ??Loculated pleural fluid in the posterior medial and posterolateral aspect of the right lower chest. ??Very small left pleural effusion. 3. ??Loculated pleural effusion adjacent to the right heart border or less likely loculated pericardial effusion. 4. ??Patchy areas of atelectasis versus infiltrate bilaterally in the lungs, greatest in the lower lobes and in the left upper lobe as noted above. ??Please correlate clinically for atypical pneumonia. 5. ??At least 3 hypodense lesions in the spleen with the largest 1.8 cm. ??Recommend correlation with ultrasound of the spleen for further evaluation. 6. ??Slight surface nodularity of the liver; please correlate clinically for possible cirrhosis of the liver. 7. ??Please see the CT lumbar spine exam of 08/22/2021 regarding postoperative and other chronic findings involving the lumbar spine with chronic compression deformity of anterior L3 vertebral body. 8. ??Increased density in the gallbladder concerning for gallstones. ??Dilated common duct measuring up to 1.5 cm. ??Recommend right upper quadrant ultrasound exam for further evaluation. 9. ??Small hiatal hernia. 10. ??Please see above report for the other findings. This CT exam was performed using one or more of the following dose reduction techniques: ??automated exposure control, adjustment of the mA and/or kV according to patient size, and/or use of iterative reconstruction's technique. Referred By: PROVIDER NON-STAFF Interpreted By: Karine Sher MD, 07/26/2022 12:56 AM Narrative 07/26/2022 1:23 AM THERAPEUTIC SPECIALIST EXAMINATION: 1. ??CTA Chest with Intravenous Contrast, Axial Imaging with 2-D Coronal and Sagittal Reconstructions as well as 3D MIP Coronal and Sagittal Reconstructions. 2. ??CT Abdomen and Pelvis with intravenous contrast, axial images with 2D coronal and sagittal reconstruction 100 mL Isovue-370 was administered intravenously at the onset of the exams, with the exams performed consecutively following contrast administration. INDICATION: Bleeding, uncertain source, drop of hemoglobin from 10.2-7.0 in the last 12 hours, suspect pulmonary source, pulmonary emboli versus GI bleed. ??Shortness of breath. COMPARISON: CT lumbar spine without contrast 08/22/2021. ??PA and lateral chest x-ray 08/17/2021. CTA CHEST FINDINGS: ??No evidence of pulmonary emboli in the main pulmonary artery or the segmental branches with limited evaluation of the subsegmental branches related to timing of imaging with respect to phase of contrast. ??Main pulmonary artery is normal in size. ??Aorta is age-appropriate without aneurysm. ??Mild atherosclerotic calcifications in the aortic arch and descending thoracic aorta. ??Heart size is normal. ??Suspect a loculated pleural effusion abutting the right heart border with a loculated pericardial effusion less likely but suggest correlation with echocardiogram for further evaluation. ??Tiny pericardial effusion anterior to the heart. ??Additional partially loculated pleural effusion posterolaterally and posterior medially in the right mid to lower chest. ??There may be very tiny left pleural effusion. ??There is a loculated pneumothorax versus air-fluid level from an empyema with possibly a bronchopleural fistula or abscess in the posterior medial right lower chest. ??Mild atelectasis and less likely infiltrate posteriorly in the left lower lobe. ??Pulmonary edema versus infiltrates in the left upper lobe and lingula. CT ABDOMEN AND PELVIS FINDINGS: Multiple hypodense lesions in the spleen with the largest measuring 1.[address] density less than 20 Hounsfield units. ??Accessory splenule medial to the spleen below the splenic hilum. ??Remaining spleen is within normal limits. ??Slight surface nodularity and lobulation of the liver suggesting mild cirrhosis of the liver in the appropriate clinical setting with the liver otherwise unremarkable. ??Gallbladder is fluid distended with mild hyperdensity near the neck of the gallbladder which may represent small stones, dense sludge, or less likely polypoid mass. ??Dilated common duct measuring up to 1.5 cm in maximal diameter with no obvious common duct stone or mass. ??No significant intrahepatic biliary dilatation. ??Pancreas, bilateral adrenals, and bilateral kidneys appear normal. ??Bladder is normal. ??Prostate is normal in size. Small to moderate-sized retrocardiac hiatal hernia. ??Moderate to heavy stool in the right colon and mild stool burden scattered in the transverse and left colon. ??The hepatic flexure of the colon extends between the diaphragm and the liver; please correlate clinically for Chilaiditi's syndrome. ??No bowel obstruction. ??Appendix is not well-visualized, but no findings of appendicitis are seen. ??No bowel obstruction. ??No ascites or adenopathy Sclerotic calcifications in the abdominal aorta and its distal branches without aneurysm. ??Reversal of lumbar lordosis with chronic compression deformity of anterior L2 vertebral body with posterior fusion hardware at L3-4. ??Please refer to the CT lumbar spine exam of 08/22/2021 for the other lumbar spine findings. ??No acute osseous abnormality. ?? Procedure Note Karine Sher MD - 07/26/2022 EXAMINATION: 1. CTA Chest with Intravenous Contrast, Axial Imaging with 2-D Coronaland Sagittal Reconstructions as well as 3D MIP Coronal and SagittalReconstructions. 2. CT Abdomen and Pelvis with intravenous contrast, axial images with 2Dcoronal and sagittal reconstruction 100 mL Isovue-370 was administered intravenously at the onset of theexams, with the exams performed consecutively following contrastadministration. INDICATION: Bleeding, uncertain source, drop of hemoglobin from 10.2-7.0in the last 12 hours, suspect pulmonary source, pulmonary emboli versus GIbleed. Shortness of breath. COMPARISON: CT lumbar spine without contrast 08/22/2021. PA and lateralchest x- ray 08/17/2021. CTA CHEST FINDINGS: No evidence of pulmonary emboli in the main pulmonaryartery or the segmental branches with limited evaluation of thesubsegmental branches related to timing of imaging with respect to phaseof contrast. Main pulmonary artery is normal in size. Aorta isage-appropriate without aneurysm. Mild atherosclerotic calcifications inthe aortic arch and descending thoracic aorta. Heart size is normal.Suspect a loculated pleural effusion abutting the right heart border witha loculated pericardial effusion less likely but suggest correlation withechocardiogram for further evaluation. Tiny pericardial effusion anteriorto the heart. Additional partially loculated pleural effusionposterolaterally and posterior medially in the right mid to lower chest.There may be very tiny left pleural effusion. There is a loculatedpneumothorax versus air-fluid level from an empyema with possibly abronchopleural fistula or abscess in the posterior medial right lowerchest. Mild atelectasis and less likely infiltrate posteriorly in theleft lower lobe. Pulmonary edema versus infiltrates in the left upperlobe and lingula. CT ABDOMEN AND PELVIS FINDINGS: Multiple hypodense lesions in the spleenwith the largest measuring 1.[address] density less than 20 Hounsfieldunits. Accessory splenule medial to the spleen below the splenic hilum.Remaining spleen is within normal limits. Slight surface nodularity andlobulation of the liver suggesting mild cirrhosis of the liver in theappropriate clinical setting with the liver otherwise unremarkable.Gallbladder is fluid distended with mild hyperdensity near the neck of thegallbladder which may represent small stones, dense sludge, or less likelypolypoid mass. Dilated common duct measuring up to 1.5 cm in maximaldiameter with no obvious common duct stone or mass. No significantintrahepatic biliary dilatation. Pancreas, bilateral adrenals, andbilateral kidneys appear normal. Bladder is normal. Prostate is normalin size. Small to moderate-sized retrocardiac hiatal hernia. Moderate to heavystool in the right colon and mild stool burden scattered in the transverseand left colon. The hepatic flexure of the colon extends between thediaphragm and the liver; please correlate clinically for Chilaiditi'ssyndrome. No bowel obstruction. Appendix is not well-visualized, but nofindings of appendicitis are seen. No bowel obstruction. No ascites oradenopathy Sclerotic calcifications in the abdominal aorta and its distal brancheswithout aneurysm. Reversal of lumbar lordosis with chronic compressiondeformity of anterior L2 vertebral body with posterior fusion hardware atL3-4. Please refer to the CT lumbar spine exam of 08/22/2021 for theother lumbar spine findings. No acute osseous abnormality. IMPRESSION: 1. Air-fluid level within loculated fluid collection in the rightposterior pleural cavity related to loculated hydropneumothorax, empyemaor abscess versus bronchopleural fistula. Please correlate clinically. 2. Loculated pleural fluid in the posterior medial and posterolateralaspect of the right lower chest. Very small left pleural effusion. 3. Loculated pleural effusion adjacent to the right heart border or lesslikely loculated pericardial effusion. 4. Patchy areas of atelectasis versus infiltrate bilaterally in thelungs, greatest in the lower lobes and in the left upper lobe as notedabove. Please correlate clinically for atypical pneumonia. 5. At least 3 hypodense lesions in the spleen with the largest 1.8 cm.Recommend correlation with ultrasound of the spleen for furtherevaluation. 6. Slight surface nodularity of the liver; please correlate clinicallyfor possible cirrhosis of the liver. 7. Please see the CT lumbar spine exam of 08/22/2021 regardingpostoperative and other chronic findings involving the lumbar spine withchronic compression deformity of anterior L3 vertebral body. 8. Increased density in the gallbladder concerning for gallstones.Dilated common duct measuring up to 1.5 cm. Recommend right upperquadrant ultrasound exam for further evaluation. 9. Small hiatal hernia. 10. Please see above report for the other findings. This CT exam was performed using one or more of the following dosereduction techniques: automated exposure control, adjustment of the mAand/or kV according to patient size, and/or use of iterativereconstruction's technique. Referred By: PROVIDER NON-STAFF Interpreted By: Karine Sher MD, 07/26/2022 12:56 AM Tracy Yo MD CT Final Result * (ABNORMAL) RETICULOCYTE CT, AUTO (07/25/2022 8:56 PM THERAPEUTIC SPECIALIST) % RETICULOCYTE COUNT 4.0(H) 0.7 - 2.3 % 07/25/2022 9:04 PM THERAPEUTIC SPECIALIST [facility] ABSOLUTE RETICULOCYTE 0.09 0.03 - 0.11 x10'6/uL 07/25/2022 9:04 PM THERAPEUTIC SPECIALIST [facility] IMMATURE RETIC FRACTION 31.8(H) 2.3 - 13.4 % 07/25/2022 9:04 PM THERAPEUTIC SPECIALIST [facility] RETIC HGB 31.9 28.0 - 35.0 PG 07/25/2022 9:04 PM THERAPEUTIC SPECIALIST [facility] 07/25/2022 8:56 PM THERAPEUTIC SPECIALIST us Tracy Yo MD LABORATORY Final Result Performing Organization Address City/[facility] Co de Phone Number [facility] [address] [place] [address], [phone] * (ABNORMAL) HEMOGLOBIN AND HEMATOCRIT (07/25/2022 8:56 PM THERAPEUTIC SPECIALIST) HGB 7.5(L) 13.0 - 18.0 G/DL 07/25/2022 9:04 PM THERAPEUTIC SPECIALIST [facility] HCT 23.2(L) 37.0 - 52.0 % 07/25/2022 9:04 PM THERAPEUTIC SPECIALIST [facility] 07/25/2022 8:56 PM THERAPEUTIC SPECIALIST us Tracy Yo MD LABORATORY Final Result Performing Organization Address City/[facility] Co de Phone Number [facility] [address] [place] [address], [place] [phone] * STREP PNEUMO AG URINE (07/25/2022 8:31 PM THERAPEUTIC SPECIALIST) S. PNEUMONIAE URINARY AG NEGATIVE NEGATIVE 07/26/2022 2:26 PM THERAPEUTIC SPECIALIST [facility] Comment: PRESUMPTIVE NEGATIVE FOR PNEUMOCOCCAL PNEUMONIA, SUGGESTING NO CURRENT OR RECENT PNEUMOCOCCAL INFECTION. INFECTION DUE TO STREPTOCOCCUS PNEUMONIA CANNOT BE RULED OUT SINCE THE ANTIGEN PRESENT IN THE SAMPLE MAY BELOW THE DETECTION LIMIT OF THE TEST. SPECIMEN TYPE URINE VOIDED 8:31 PM THERAPEUTIC SPECIALIST [facility] URINE SPECIMEN FROM URETHRA / Unknown 07/25/2022 8:31 PM THERAPEUTIC SPECIALIST Tracy Yo MD MICROBIOLOGY - GENERA L ORDERABLES Final Result Performing Organization Address [facility] Co de Phone Number [facility] [address] [place] [address], [place] [phone] * LEGIONELLA AG URINE (07/25/2022 8:31 PM THERAPEUTIC SPECIALIST) LEGIONELLA ANTIGEN (URINE) NEGATIVE NEGATIVE 07/26/2022 2:26 PM THERAPEUTIC SPECIALIST [facility] Comment: PRESUMPTIVE NEGATIVE FOR L. PNEUMOPHILA SEROGROUP 1 ANTIGEN IN URINE, SUGGESTING NO RECENT OR CURRENT INFECTION. INFECTION DUE TO LEGIONELLA CANNOT BE RULED OUT SINCE OTHER SEROGROUPS AND SPECIES MAY CAUSE DISEASE, ANTIGEN MAY NOT BE PRESENT IN URINE IN EARLY INFECTION, AND THE LEVEL OF ANTIIGNE PRESENT IN THE URINE MAY BE BELOW THE DETECTION LIMIT OF THE TEST. URINE SPECIMEN / Unknown 07/25/2022 8:31 PM THERAPEUTIC SPECIALIST Tracy Yo MD MICROBIOLOGY - GENERA L ORDERABLES Final Result Performing Organization Address [facility] Co de Phone Number [facility] [address] [place] [address], [place] [phone] * BLOOD SMEAR INTERPRETATION BY (07/25/2022 5:23 PM THERAPEUTIC SPECIALIST) CBC PATHOLOGIST COMMENT SENT TO PATHOLOGIST FOR REVIEW 07/25/2022 5:32 PM THERAPEUTIC SPECIALIST [facility] 07/25/2022 5:23 PM THERAPEUTIC SPECIALIST us Tracy Yo MD LABORATORY Final Result Performing Organization Address [facility] Co de Phone Number [facility] [address] [place] [address], [place] [phone] * (ABNORMAL) LDH, LACTATE DEHYDROGENASE (07/25/2022 5:23 PM THERAPEUTIC SPECIALIST) Pathologist [facility] LDH 280(H) 87 - 241 UNITS/L 07/25/2022 5:59 PM THERAPEUTIC SPECIALIST [facility] 07/25/2022 5:23 PM THERAPEUTIC SPECIALIST us Tracy Yo MD LABORATORY Final Result Performing Organization Address [facility] de Phone Number [facility] [address] [place] [address], [place] [phone] * (ABNORMAL) HEMOGLOBIN AND HEMATOCRIT (07/25/2022 5:23 PM THERAPEUTIC SPECIALIST) [facility] HGB 8.1(L) 13.0 - 18.0 G/DL 07/25/2022 5:31 PM THERAPEUTIC SPECIALIST [facility] HCT 24.4(L) 37.0 - 52.0 % 07/25/2022 5:31 PM THERAPEUTIC SPECIALIST [facility] 07/25/2022 5:23 PM THERAPEUTIC SPECIALIST us Tracy Yo MD LABORATORY Final Result Performing Organization Address [facility] de Phone Number [facility] [address] [place] [address], [place] [phone] * HIV 1 ANTIGEN(S), WITH HIV-1 AND HIV-2 ANTIBODIES (07/25/2022 5:23 PM THERAPEUTIC SPECIALIST) Pathologist [facility] HIV 1/2 AB+ HIV1 P24 AG NON-REACTI VE NON-REACTI VE 07/25/2022 6:53 PM THERAPEUTIC SPECIALIST [facility] Comment:HIV 1 p24 Ag and HIV 1/ HIV 2 Ab not detected. 07/25/2022 5:23 PM THERAPEUTIC SPECIALIST Tracy Yo MD LABORATORY Final Result [facility] [address] [place] [address], [phone] * MYCOPLASMA PNEUMONIAE AB (07/25/2022 5:23 PM THERAPEUTIC SPECIALIST) [facility] M. PNEUMONIAE AB IGG <=0.90 <=0.90 07/30/2022 2:29 PM THERAPEUTIC SPECIALIST [employer] DEMARIO SAAVEDRA Comment: Reference Range: ?<=0.90 ? Negative ? 0.91-1.09 ? Equivocal ?>=1.10 ? Positive A positive IgG result indicates that the patient has antibody to Mycoplasma. It does not differentiate between an active or past infection. The clinical diagnosis must be interpreted in conjunction with the clinical signs and symptoms of the patient. M. PNEUMONIAE AB IGM 463 <770 U/mL 07/30/2022 2:29 PM THERAPEUTIC SPECIALIST [employer]JED SAAVEDRA Comment: Reference Range: ?? <770 U/ml ?Negative 770-950 U/mL ?Low positive ?? >950 U/mL ?Positive A positive IgM antibody result is consistent with recent infection. However, a negative result does not necessarily rule out recent infection as some individuals may not mount another IgM response, if previously infected. A positive IgM antibody result with or without a positive IgG antibody result, is consistent with recent infection. However, a negative result does not necessarily rule out recent infection as some individuals may not mount another IgM response, if previously infected. A positive IgG antibody result in the absence of a positive IgM antibody result, indicates that the patient has antibody to Mycoplasma. It does not differentiate between an active or past infection. The clinical diagnosis must be interpreted in conjunction with the clinical signs and symptoms of the patient. Test Performed by [facility], [employer] [facility], [address] [place] [address] Adrián Balderas M.D., Ph.D., Director of Laboratories , CLIA [id number] 07/25/2022 5:23 PM THERAPEUTIC SPECIALIST Tracy Yo MD LABORATORY Final Result Performing Organization Address City/[facility]/ZIP Co de Phone Number [employer] [address] , [place] [phone] * (ABNORMAL) PROTIME/INR, VENOUS (PROTHROMBIN TIME) (07/25/2022 5:23 PM THERAPEUTIC SPECIALIST) PROTIME 14.6(H) 9.4 - 12.5 SEC 07/25/2022 5:56 PM THERAPEUTIC SPECIALIST [facility] INR 1.3(H) 0.8 - 1.1 07/25/2022 5:56 PM THERAPEUTIC SPECIALIST [facility] 07/25/2022 5:23 PM THERAPEUTIC SPECIALIST Tracy Yo MD LABORATORY Final Result Performing Organization Address City/[facility]/ZIP Co de Phone Number [facility] [address] [place] [address], [place] [phone] * TYPE & SCREEN (07/25/2022 5:23 PM THERAPEUTIC SPECIALIST) UNITS ORDERED 1 07/25/2022 5:33 PM THERAPEUTIC SPECIALIST [facility] ABO/RH B POSITIVE 07/25/2022 6:36 PM THERAPEUTIC SPECIALIST [facility] ANTIBODY SCREEN NEGATIVE 6:36 PM THERAPEUTIC SPECIALIST [facility] SAMPLE EXPIRATION 07/28/2022,2359 07/25/2022 5:33 PM [facility] BLOOD UNIT NUMBER [id number] 07/27/2022 4:27 AM THERAPEUTIC SPECIALIST [facility] PRODUCT: PC LEUKOPOOR 07/27/2022 4:27 AM THERAPEUTIC SPECIALIST [facility] UNIT DIVISION 00 07/27/2022 4:27 AM [facility] BLOOD UNIT STATUS TRANSFUSED,FINAL 07/28/2022 2:57 AM [facility] ISSUE DATE/TIME [id number] 2:57 AM [facility] PRODUCT CODE [id number] 07/28/2022 2:57 AM [facility] ABO/RH Unit B POS 07/28/2022 2:57 AM [facility] ABO/RH UNIT ISBT CODE 7300 07/28/2022 2:57 AM [facility] BLOOD UNIT EXPIRATION DATE [id number] 07/28/2022 2:57 AM [facility] TRANSFUSION STATUS OK TO TRANSFUSE 07/27/2022 4:27 AM [facility] CROSSMATCH COMPATIBLE-EXM 07/27/2022 4:27 AM [facility] 07/25/2022 5:23 PM THERAPEUTIC SPECIALIST Tracy Yo MD BLOOD BANK TEST ORDER CHRISTIANA Final Result [facility] [address] [place] [address], [phone] * CULTURE, BACTERIA, BLOOD (07/25/2022 2:17 PM THERAPEUTIC SPECIALIST) SPEC DESCRIPTION BLOOD 07/25/2022 1:55 PM THERAPEUTIC SPECIALIST [facility] SPECIAL REQUESTS NO SPECIAL REQUEST 07/25/2022 1:55 PM [facility] CULTURE RESULT NO GROWTH 5 DAYS 07/30/2022 5:25 AM [facility] BLOOD SPECIMEN OBTAINED FOR BLOOD CULTURE / Unknown 07/25/2022 2:17 PM THERAPEUTIC SPECIALIST 07/25/2022 2:32 PM THERAPEUTIC SPECIALIST Tracy Yo MD MICROBIOLOGY - GENERA L ORDERABLES Final Result [facility] [address] [place] [address], [place] [phone] * (ABNORMAL) COMPREHENSIVE METABOLIC PANEL (07/25/2022 2:16 PM THERAPEUTIC SPECIALIST) SODIUM S/P/B 137 136 - 145 MMOL/L 07/25/2022 3:00 PM [facility] POTASSIUM S/P/B 3.4(L) 3.5 - 5.1 MMOL/L 07/25/2022 3:00 PM [facility] CHLORIDE S/P/B 106 98 - 107 MMOL/L 07/25/2022 3:00 PM [facility] CO2 24.7 21.0 - 32.0 MMOL/L 07/25/2022 3:00 PM [facility] GLUCOSE 85 74 - 106 MG/DL 07/25/2022 3:00 PM [facility] BUN 17 7 - 18 MG/DL 07/25/2022 3:00 PM [facility] CREATININE S/P/B 0.57(L) 0.70 - 1.30 MG/DL 07/25/2022 3:00 PM [facility] CALCIUM S/P/B 7.8(L) 8.5 - 10.1 MG/DL 07/25/2022 3:00 PM [facility] BILIRUBIN TOTAL S/P/B 0.3 0.2 - 1.0 MG/DL 07/25/2022 3:00 PM [facility] ALKALINE PHOSPHATASE S/P/B 61 45 - 115 U/L 07/25/2022 3:00 PM [facility] AST 23 15 - 37 U/L 07/25/2022 3:00 PM [facility] ALT 23 16 - 61 U/L 07/25/2022 3:00 PM [facility] TOTAL PROTEIN S/P/B 5.3(L) 6.4 - 8.2 G/DL 07/25/2022 3:00 PM [facility] ALBUMIN S/P/B 1.5(L) 3.4 - 5.0 G/DL 07/25/2022 3:00 PM [facility] ANION GAP 6.3 5.0 - 15.0 MMOL/L 07/25/2022 3:00 PM [facility] OSMOLALITY (CALC) 285 MOSM/KG 022 3:00 PM [facility] Comment:REFERENCE RANGE NOT ESTABLISHED GFR ESTIMATE >90 >90 ML/MIN/1. 73 M2 07/25/2022 3:00 PM [facility] GFR NOTES GFR REFERENCE S: 07/25/2022 3:00 PM [facility] Comment: THE ESTIMATED GFR IS [...] ml/min/1.73 m2 G5,KIDNEY FAILURE: <15 ml/min/1.73 m2 07/25/2022 2:16 PM THERAPEUTIC SPECIALIST Tracy Yo MD LABORATORY Final Result [facility] [address] [place] [address], [phone] * (ABNORMAL) CBC W/DIFF AUTOMATED (07/25/2022 2:16 PM THERAPEUTIC SPECIALIST) [facility] WBC 17.6(H) 4.0 - 10.8 x10'3/uL 07/25/2022 2:26 PM THERAPEUTIC SPECIALIST [facility] RBC 2.07(L) 4.50 - 6.10 x10'6/uL 07/25/2022 2:26 PM [facility] HGB 7.0(L) 13.0 - 18.0 G/DL 07/25/2022 2:26 PM [facility] HCT 21.0(L) 37.0 - 52.0 % 07/25/2022 2:26 PM THERAPEUTIC SPECIALIST [facility] MCV 101.4(H) 78.0 - 100.0 FL 07/25/2022 2:26 PM THERAPEUTIC SPECIALIST [facility] MCH 33.8(H) 27.0 - 31.0 PG 07/25/2022 2:26 PM THERAPEUTIC SPECIALIST [facility] MCHC 33.3 33.0 - 36.0 G/DL 07/25/2022 2:26 PM [facility] RDW 13.6 11.5 - 14.5 % 07/25/2022 2:26 PM THERAPEUTIC SPECIALIST [facility] PLT 260 150 - 350 x10'3/uL 07/25/2022 2:26 PM [facility] MPV 10.8(H) 7.4 - 10.4 FL 07/25/2022 2:26 PM [facility] ABS. NEUTROPHILS 14.78(H) 1.60 - 8.30 x10'3/uL 07/25/2022 2:42 PM [facility] ABS. NEUTROPHILS CALCULATED 13.55(H) 1.60 - 7.30 x10'3/uL 07/25/2022 2:42 PM THERAPEUTIC SPECIALIST [facility] ABS. LYMPHOCYTES 2.29 0.80 - 4.70 x10'3/uL 07/25/2022 2:42 PM THERAPEUTIC SPECIALIST [facility] ABS. MONOCYTES 0.53 0.00 - 1.50 x10'3/uL 07/25/2022 2:42 PM THERAPEUTIC SPECIALIST [facility] ABS. EOSINOPHILS 0.00 0.00 - 0.40 x10'3/uL 07/25/2022 2:42 PM THERAPEUTIC SPECIALIST [facility] ABS. BASOPHILS 0.00 0.00 - 0.20 x10'3/uL 07/25/2022 2:42 PM THERAPEUTIC SPECIALIST [facility] ABS. METAMYELOCYTES 0.70(H) 0.00 x10'3/uL 07/25/2022 2:42 PM THERAPEUTIC SPECIALIST [facility] ABS. MYELOCYTES 0.35(H) 0.00 x10'3/uL 07/25/2022 2:42 PM THERAPEUTIC SPECIALIST [facility] ABS. PROMYELOCYTES 0.18(H) 0.00 x10'3/uL 07/25/2022 2:42 PM THERAPEUTIC SPECIALIST [facility] ABS. NUCLEATED RBC'S 0.00 0.0 x10'3/uL 07/25/2022 2:42 PM THERAPEUTIC SPECIALIST [facility] RBC MORPHOLOGY ANISOCYTOSIS 07/25/20 2:42 PM THERAPEUTIC SPECIALIST [facility] Comment: SLIGHT MACROCYTOSIS MODERATE POIKILOCYTOSIS SLIGHT OVALOCYTES ACANTHOCYTES WBC MORPHOLOGY VACUOLATED NEUTROPHILS 07/25/2022 2:42 PM THERAPEUTIC SPECIALIST [facility] PLT MORPH. NORMAL 07/25/2022 2:42 PM THERAPEUTIC SPECIALIST [facility] 07/25/2022 2:16 PM THERAPEUTIC SPECIALIST Tracy Yo MD LABORATORY Final Result [facility] [address] [place] [address], [phone] * CULTURE, BACTERIA, BLOOD (07/25/2022 2:16 PM THERAPEUTIC SPECIALIST) SPEC DESCRIPTION BLOOD 07/25/20 2:32 PM THERAPEUTIC SPECIALIST [facility] SPECIAL REQUESTS BLOOD-AERO BIC BOTTLE ONLY 07/25/2022 2:32 PM THERAPEUTIC SPECIALIST [facility] CULTURE RESULT NO GROWTH 5 DAYS 07/30/2022 5:25 AM THERAPEUTIC SPECIALIST [facility] BLOOD SPECIMEN OBTAINED FOR BLOOD CULTURE / Unknown 07/25/2022 2:16 PM THERAPEUTIC SPECIALIST 07/25/2022 2:32 PM THERAPEUTIC SPECIALIST Tracy Yo MD MICROBIOLOGY - GENERA L ORDERABLES Final Result [facility] [address] [place] [address], [id number] * Pathology (07/25/2022 12:00 AM THERAPEUTIC SPECIALIST) PATHOLOGY [facility] ? Department of Laboratory Medicine ?[address] ?[place] [address] ? , extension [phone] ? Pathology Report ? Peripheral Smear Report Name: RAY PHILLIPS ? Specimen #: [id number] Age: 9 1955 (Age: 67) ? Location: [facility] Sex: M ?Procedure Date: 07/25/2022 [facility] #: [id number] ?Date Received: 07/27/2022 Date Reported: 07/27/2022 Provider: TRACY YO MD Source: Peripheral blood Clinical History: The patient is a 67-year-old male chronic smoker who presented with worsening shortness of breath and loculated pleural effusion. ??The CBC showed neutrophilic leukocytosis and anemia. ??The peripheral blood smear review is requested by Dr. Yo. FINAL DIAGNOSIS: PERIPHERAL BLOOD, SMEAR REVIEW: ? - MACROCYTIC ANEMIA, SEVERE. ? - LEUKOCYTOSIS WITH ABSOLUTE NEUTROPHILIA. Diagnosis Comment: Review of the peripheral blood smear shows severe macrocytic anemia and neutrophilic leukocytosis. ??Differential diagnostic considerations for macrocytic anemia include vitamin deficiency, drug-effect, liver disease, hypothyroidism, alcohol abuse, myelodysplastic syndrome, and others. ??There is no morphologic evidence of hemolytic process or hematologic malignancy. ??In addition, haptoglobin is not decreased. Recommend correlation with serum iron studies, B12 and folate levels, and fecal occult blood testing, as clinically indicated. ?? Neutrophilic leukocytosis with left shift is consistent with underlying infection. ?? Electronically Signed Out ? KARTHIK ARAGON MD INTERPRETATION: Peripheral Blood Comments: COMPLETE BLOOD COUNT RESULTS Component Ref Range & Units 07/25/22 1416 WBC 4.0 - 10.8 x10'3/uL 17.6High ??RBC 4.50 - 6.10 x10'6/uL 2.07Low ??HGB 13.0 - 18.0 G/DL 7.0Low ??HCT 37.0 - 52.0 % 21.0Low ??MCV 78.0 - 100.0 FL 101.4High ??MCH 27.0 - 31.0 PG 33.8High ??MCHC 33.0 - 36.0 G/DL 33.3 ??RDW 11.5 - 14.5 % 13.6 ??PLT 150 - 350 x10'3/uL 260 ??MPV 7.4 - 10.4 FL 10.8High ??ABS. NEUTROPHILS 1.60 - 8.30 x10'3/uL 14.78High ??ABS. NEUTROPHIL COUNT 1.60 - 7.30 x10'3/uL 13.55High ??ABS. LYMPHOCYTES 0.80 - 4.70 x10'3/uL 2.29 ??ABS. MONOCYTES 0.00 - 1.50 x10'3/uL 0.53 ABS. EOSINOPHILS 0.00 - 0.40 x10'3/uL 0.00 ??ABS. BASOPHILS 0.00 - 0.20 x10'3/uL 0.00 ??ABS. METAMYELOCYTES 0.00 x10'3/uL 0.70High ??ABS. MYELOCYTES 0.00 x10'3/uL 0.35High ??ABS. PROMYELOCYTES 0.00 x10'3/uL 0.18High ??ABS. NUCLEATED RBC'S 0.0 x10'3/uL 0.00 ?? RED BLOOD CELLS: The hemoglobin is decreased to 7 g/dL. ??The red blood cells are mildly macrocytic with mild anisopoikilocytosis characterized by scattered ovalocytes and gloria cells. ??No nucleated red blood cells or red blood cell inclusions are identified. ??No schistocytes or spherocytes are identified. ??No rouleaux formation or red blood cell agglutination is identified. ??Scattered reticulocytes are present. WHITE BLOOD CELLS: The white blood cell number is increased to 17.6 K/cumm. ??The white blood cells are distributed in accordance with the reported cell differential. ??The absolute total neutrophil count is within normal range, and circulating forms show toxic cytoplasmic granulation. ??The granulocytic maturation is left shifted to the promyelocyte stage, but no circulating blasts are identified. ??Other white blood cell subsets are normal in number and morphology. PLATELETS: Platelets are normal in number and morphology. ??They are predominantly small and appropriately granulated. Gross examination (when applicable), interpretation and sign-out were performed at [facility], [address] [place] [address], [place], [place], [address]. [facility] 07/25/2022 07/27/2022 7:5 8 AM THERAPEUTIC SPECIALIST Comment:Peripheral blood Tracy Yo MD PATHOLOGY/CYTOLOGY OR DERABLES Final Result Performing Organization Address City/State/[facility] Co de Phone Number [facility] [address] [place] [address], [phone] documented in this encounter Visit Diagnoses Diagnosis Respiratory failure (CMS/HCC HHS/HCC)- Primary Acute respiratory failure documented in this encounter Admitting Diagnoses Diagnosis Respiratory failure (CMS/[facility] HHS/HCC) Acute respiratory failure documented in this encounter Administered Medications Inactive Administered Medications - up to 3 most recent administrations Medication Order MAR Action Action Date Dose Rate Site acetaminophen (TYLENOL) tablet 650 mg 650 mg, Oral, Every 4 hours PRN, Mild pain (Scale 1 - 3), Starting on Sat07/25/22 at 1354, Until Sat08/08/22 at 1357, Maximum dose of acetaminophen is 4000 mg from all sources in 24 hours. Given 08/05/2022 9:02 PM THERAPEUTIC SPECIALIST 650 mg Given 08/04/2022 10:28 PM THERAPEUTIC SPECIALIST 650 mg Given 08/01/2022 9:40 PM THERAPEUTIC SPECIALIST 650 mg albuterol sulfate HFA 108 (90 Base) MCG/ACT inhaler 2 puff 2 puff, Inhalation, Every 4 hours PRN, Wheezing, Shortness of breath, Starting on Sat07/25/22 at 1355, Until Sat08/08/22 at 1357 alteplase (CATHFLO) injection Code/trauma/sedation medication, Starting on Sat07/27/22 at 1034, Until Sat08/08/22 at 1357 Given 07/27/2022 10:34 AM THERAPEUTIC SPECIALIST 2 mg C hest azithromycin (ZITHROMAX) 500 mg in NS 250 mL IVPB 500 mg, Intravenous, at 250 mL/hr, Every 24 hours, 5 doses, First dose on Sat07/25/22 at 1800, Last dose on Sat07/29/22 at 1800 New Bag 07/29/2022 6:18 PM THERAPEUTIC SPECIALIST 500 mg 250 mL/hr New Bag 07/28/2022 5:52 PM THERAPEUTIC SPECIALIST 500 mg 250 mL/hr New Bag 07/27/2022 5:32 PM THERAPEUTIC SPECIALIST 500 mg 250 mL/hr calcium carbonate (TUMS) chewable tablet 500 mg 500 mg, Oral, Daily as needed, Indigestion, Starting on 08/04/22 at 1439, Until Sat08/08/22 at 1357 Given 08/04/2022 2:47 PM THERAPEUTIC SPECIALIST 500 mg ceFEPIme (MAXIPIME) 2 g in sodium chloride (PF) 0.9 % 10 mL IV 2 g, Intravenous, Administer over 5 Minutes, Every 12 hours, First dose on Sat07/25/22 at 1800, Until Discontinued Given 08/06/2022 5:38 AM THERAPEUTIC SPECIALIST 2 g 120 mL/hr Given 08/05/2022 4:46 PM THERAPEUTIC SPECIALIST 2 g 120 mL/hr Given 08/05/2022 5:00 AM THERAPEUTIC SPECIALIST 2 g 120 mL/hr cefTRIAXone (ROCEPHIN) 2 g in sodium chloride 0.9 % 50 mL IVPB 2 g, Intravenous, at 100 mL/hr, Every 24 hours, First dose on Sat08/06/22 at 1400, Until Discontinued New Bag 08/08/2022 10:55 AM THERAPEUTIC SPECIALIST 2 g 10 0 mL/hr New Bag 08/07/2022 2:58 PM THERAPEUTIC SPECIALIST 2 g 100 mL/hr New Bag 08/06/2022 1:25 PM THERAPEUTIC SPECIALIST 2 g 100 mL/hr chlorhexidine (PERIDEX) 0.12 % solution 15 mL 15 mL, Mouth/Throat, Once, 1 dose, On Zulema 08/02/22 at 0600, Patient to perform oral care first. Swish/gargle in mouth for 30 seconds, and then discard prior to going to surgery. If ventilated use saturated swab to clean oral cavity., Pre-Op Given 08/02/2022 5:17 AM THERAPEUTIC SPECIALIST 15 mLs cyclobenzaprine (FLEXERIL) tablet 10 mg 10 mg, Oral, 3 times daily PRN, Muscle Spasms, Starting on Sat07/25/22 at 1634, Until [place] 08/05/22 at 1009 Given 08/05/2022 5:00 AM THERAPEUTIC SPECIALIST 10 mg Given 08/04/2022 8:37 PM THERAPEUTIC SPECIALIST 10 mg Given 07/26/2022 8:28 AM THERAPEUTIC SPECIALIST 10 mg enoxaparin (LOVENOX) 40 MG/0.4ML syringe 40 mg 40 mg, Subcutaneous, Nightly (enoxaparin), First dose on Sat08/03/22 at 2100, Until Discontinued, Administer by deep SubQ injection alternating between the left or right anterolateral and left or right posterolateral abdominal wall. Given 08/07/2022 8:35 PM THERAPEUTIC SPECIALIST 40 mg Right Lower Abdomen Given 08/06/2022 9:35 PM THERAPEUTIC SPECIALIST 40 mg Ri ght Lower Abdomen Given 08/05/2022 8:52 PM THERAPEUTIC SPECIALIST 40 mg Ri ght Lower Abdomen fentaNYL (SUBLIMAZE) injection Code/trauma/sedation medication, Starting on Sat07/27/22 at 1014, Until Zulema 08/02/22 at 0819 Given 07/27/2022 10:14 AM THERAPEUTIC SPECIALIST 50 mcg FLUoxetine (PROzac) capsule 20 mg 20 mg, Oral, Daily, First dose on Sat07/25/22 at 1700, Until Discontinued Given 08/08/2022 8:44 AM THERAPEUTIC SPECIALIST 20 mg Given 08/07/2022 8:51 AM THERAPEUTIC SPECIALIST 20 mg Given 08/06/2022 10:03 AM THERAPEUTIC SPECIALIST 20 mg furosemide (LASIX) injection 20 mg 20 mg, Intravenous, Once, 1 dose, On Zulema 07/26/22 at 0245, Administer IV push 20-40mg/min. Given 07/26/2022 2:52 AM THERAPEUTIC SPECIALIST 20 mg gabapentin (NEURONTIN) capsule 300 mg 300 mg, Oral, 2 times daily, First dose on Sat07/25/22 at 2100, Until Discontinued Given 08/08/2022 8:44 AM THERAPEUTIC SPECIALIST 300 mg Given 08/07/2022 8:35 PM THERAPEUTIC SPECIALIST 300 mg Given 08/07/2022 8:51 AM THERAPEUTIC SPECIALIST 300 mg HYDROcodone-acetaminophen (NORCO) 10-325 MG tablet 1 tablet 1 tablet, Oral, Every 6 hours PRN, Moderate pain (Scale 4 - 7), Severe pain (Scale 8 - 10), Starting on Sat07/25/22 at 1634, Until Sat08/08/22 at 1357, Second line for moderate pain Maximum dose of acetaminophen is 4000 mg from all sources in 24 hours. Given 08/08/2022 6:00 AM THERAPEUTIC SPECIALIST 1 t ablet Given 08/07/2022 8:35 PM THERAPEUTIC SPECIALIST 1 tablet Given 08/07/2022 8:55 AM THERAPEUTIC SPECIALIST 1 tablet influenza virus vaccine (QUAD) injection 0.5 mL 0.5 mL, Intramuscular, Once as needed, Other, give before discharge, 1 dose, Starting on Sat07/26/22 at 1245, Until Sat08/08/22 at 1357, Please give vaccine prior to discharge. iopamidol (ISOVUE-370) 76 % injection 100 mL 100 mL, Intravenous, IMG once as needed, Contrast, 1 dose, Starting on Sat07/26/22 at 0032, Until Sat07/26/22 at 0032 Given 07/26/2022 12:32 AM THERAPEUTIC SPECIALIST 100 mLs ipratropium-albuterol (COMBIVENT RESPIMAT) 20-100 MCG/ACT inhaler 1 puff 1 puff, Inhalation, Every 4 hours, First dose on Sat07/31/22 at 1930, Until Discontinued, Neb sub Shake Well. Prime inhaler prior to first use. Given 08/08/2022 10:59 AM THERAPEUTIC SPECIALIST 1 puff Given 08/08/2022 8:48 AM THERAPEUTIC SPECIALIST 1 puff Given 08/08/2022 2:27 AM THERAPEUTIC SPECIALIST 1 puff ipratropium-albuterol (DUONEB) 0.5-2.5 (3) MG/3ML nebulizer solution 3 mL 3 mL, Nebulization, Every 4 hours, First dose on Sat07/25/22 at 1730, Until Discontinued Given 07/31/2022 3:30 PM THERAPEUTIC SPECIALIST 3 mLs Given 07/31/2022 11:48 AM THERAPEUTIC SPECIALIST 3 mLs Given 07/31/2022 7:39 AM THERAPEUTIC SPECIALIST 3 mLs lactated ringers bolus infusion 500 mL 500 mL, Intravenous, Administer over 15 Minutes, Once, 1 dose, On Sat08/07/22 at 1430 New Bag 08/07/2022 2:58 PM THERAPEUTIC SPECIALIST 500 mLs lidocaine (XYLOCAINE) 1 % injection SOLN Code/trauma/sedation medication, Starting on Sat07/27/22 at 1016, Until Sat08/08/22 at 1357 Given 07/27/2022 10:16 AM THERAPEUTIC SPECIALIST 8 mLs Chest lidocaine 4 % patch 1 patch 1 patch, Transdermal, Administer over 12 Hours, Every 24 hours, First dose on Sat08/03/22 at 0615, Until Discontinued Patch Applied 08/08/2022 6:01 AM THERAPEUTIC SPECIALIST 1 patch Back Patch Applied 08/07/2022 5:47 AM THERAPEUTIC SPECIALIST 1 patch Back Patch Applied 08/06/2022 5:38 AM THERAPEUTIC SPECIALIST 1 patch Back LORazepam (ATIVAN) tablet 1 mg 1 mg, Oral, 2 times daily PRN, Anxiety, Starting on Sat07/25/22 at 1634, Until Sat08/08/22 at 1357 Given 08/08/2022 10:25 AM THERAPEUTIC SPECIALIST 1 mg Given 08/07/2022 5:13 PM THERAPEUTIC SPECIALIST 1 mg Given 08/07/2022 3:33 AM THERAPEUTIC SPECIALIST 1 mg methylPREDNISolone sodium succinate (SOLU-Medrol) injection 62.5 mg 62.5 mg, Intravenous, Every 12 hours, First dose on Sat07/25/22 at 1730, Until Discontinued, If ordered IV, administer into a vein over 3-15 minutes. Doses >= 2 mg/kg or 250mg should be given by infusion, unless the benefits of IV injection outweigh the risks (life-threatening shock) Given 07/26/2022 5:48 AM THERAPEUTIC SPECIALIST 62.5 mg Given 07/25/2022 6:58 PM THERAPEUTIC SPECIALIST 62.5 mg methylPREDNISolone sodium succinate (SOLU-Medrol) injection 62.5 mg 62.5 mg, Intravenous, Daily, First dose (after last modification) on Sat07/27/22 at 0700, Until Discontinued, If ordered IV, administer into a vein over 3-15 minutes. Doses >= 2 mg/kg or 250mg should be given by infusion, unless the benefits of IV injection outweigh the risks (life-threatening shock) Given 07/29/2022 6:33 AM THERAPEUTIC SPECIALIST 62.5 mg Given 07/28/2022 6:28 AM THERAPEUTIC SPECIALIST 62.5 mg Given 07/27/2022 6:58 AM THERAPEUTIC SPECIALIST 62.5 mg metroNIDAZOLE (FLAGYL) tablet 500 mg 500 mg, Oral, Every 8 hours scheduled (3 times per day), First dose on 07/30/22 at 1430, Until Discontinued Given 08/08/2022 6:00 AM THERAPEUTIC SPECIALIST 500 mg Given 08/07/2022 10:52 PM THERAPEUTIC SPECIALIST 500 mg Given 08/07/2022 2:58 PM THERAPEUTIC SPECIALIST 500 mg morphine (MSIR) tablet 30 mg 30 mg, Oral, Every 8 hours PRN, Moderate pain (Scale 4 - 7), Starting on Sat07/25/22 at 1634, Until Sat08/08/22 at 1357, First line for moderate painIndications:Chronic Pain Given 08/08/2022 10:25 AM THERAPEUTIC SPECIALIST 3 0 mg Given 08/08/2022 2:26 AM THERAPEUTIC SPECIALIST 30 mg Given 08/07/2022 5:15 PM THERAPEUTIC SPECIALIST 30 mg morphine injection 1 mg 1 mg, Intravenous, Every 6 hours PRN, Severe pain (Scale 8 - 10), Second line for severe pain if [place] ineffective of PO not avaiable, Starting on Sat07/27/22 at 0838, Until Sat08/05/22 at 1009 Given 08/03/2022 5:56 AM THERAPEUTIC SPECIALIST 1 mg Given 08/02/2022 6:30 PM THERAPEUTIC SPECIALIST 1 mg Given 08/02/2022 4:42 AM THERAPEUTIC SPECIALIST 1 mg normal saline 0.9 % flush 3-10 mL 3-10 mL, Intravenous, Every 8 hours, First dose on Zulema 08/02/22 at 0945, Until Discontinued, Post-Op Given 08/08/2022 8:48 AM THERAPEUTIC SPECIALIST 10 mLs Given 08/07/2022 10:52 PM THERAPEUTIC SPECIALIST 10 mLs Given 08/06/2022 10:04 AM THERAPEUTIC SPECIALIST 5 mLs normal saline 0.9 % flush 3-10 mL 3-10 mL, Intravenous, As needed, Line care, Starting on Zulema 08/02/22 at 0915, Until Sat08/08/22 at 1357, Post-Op Given 08/02/2022 6:33 PM THERAPEUTIC SPECIALIST 10 mLs ondansetron (ZOFRAN) injection 4 mg 4 mg, Intravenous, Every 8 hours PRN, Nausea, Vomiting, Starting on Sat07/25/22 at 1355, Until Sat08/08/22 at 1357, IV push over 2-5 minutes. polyethylene glycol (GLYCOLAX) packet 17 g 17 g, Oral, 2 times daily, First dose on Zulema 08/02/22 at 0945, Until Discontinued, Until bowel movement, then discontinue, Post-Op Given 08/07/2022 8:35 PM THERAPEUTIC SPECIALIST 17 g Given 08/07/2022 8:51 AM THERAPEUTIC SPECIALIST 17 g Given 08/06/2022 9:37 PM THERAPEUTIC SPECIALIST 17 g potassium chloride (KLOR-CON) packet 2 packet 2 packet (40 mEq), Oral, Once, 1 dose, On Sat07/25/22 at 1700, Dissolve powder in 240 mL water Given 07/25/2022 6:59 PM THERAPEUTIC SPECIALIST 2 packets potassium chloride CR (KLOR-CON M) tablet 40 mEq 40 mEq, Oral, Once, 1 dose, On Sat08/05/22 at 1030, Do not chew, crush, or suck on tablet. May break in half. May dissolve whole tablet in 120 mL of water and drink immediately. Given 08/05/2022 12:52 PM THERAPEUTIC SPECIALIST 40 mEq senna-docusate (SENOKOT-S) 8.6-50 MG tablet 1 tablet 1 tablet, Oral, Nightly PRN, Constipation, Starting on Zulema 08/02/22 at 0920, Until Sat08/08/22 at 1357, Post-Op Given 08/06/2022 5:43 AM THERAPEUTIC SPECIALIST 1 t ablet Given 08/05/2022 5:03 AM THERAPEUTIC SPECIALIST 1 tablet sodium chloride (OCEAN) 0.65 % nasal spray 1 spray 1 spray, Each Nostril, As needed, Dryness, Starting on Sat07/25/22 at 2141, Until Sat08/08/22 at 1357 Given 07/25/2022 11:05 PM THERAPEUTIC SPECIALIST 1 spray sodium chloride 0.9% infusion at 10 mL/hr, Intravenous, Continuous, Starting on Sat07/27/22 at 0445, Until 07/28/22 at 0444, Infuse at TKO rate New Bag 07/27/2022 4:45 AM THERAPEUTIC SPECIALIST 250 mLs 10 mL/hr traZODone (DESYREL) tablet 100 mg 100 mg, Oral, Nightly at bedtime, First dose on Sat07/25/22 at 2100, Until Discontinued Given 08/07/2022 8:35 PM THERAPEUTIC SPECIALIST 100 mg Given 08/06/2022 9:36 PM THERAPEUTIC SPECIALIST 100 mg Given 08/05/2022 8:52 PM THERAPEUTIC SPECIALIST 100 mg vancomycin 1000 mg in NS 250 mL IVPB 1,000 mg, Intravenous, at 250 mL/hr, Every 12 hours, First dose on 07/28/22 at 1130, Until Discontinued New Bag 08/06/2022 5:38 AM THERAPEUTIC SPECIALIST 1,000 mg 250 mL/hr New Bag 08/05/2022 4:52 PM THERAPEUTIC SPECIALIST 1,000 mg 250 mL/hr New Bag 08/05/2022 5:00 AM THERAPEUTIC SPECIALIST 1,000 mg 250 mL/hr vancomycin 1250 mg in NS 250 mL IVPB 1,250 mg, Intravenous, at 166.7 mL/hr, Every 12 hours, First dose on Zulema 07/26/22 at 0800, Until Discontinued New Bag 07/27/2022 7:00 AM THERAPEUTIC SPECIALIST 1,250 mg 166.7 mL/hr New Bag 07/26/2022 9:58 AM THERAPEUTIC SPECIALIST 1,250 mg 166.7 mL/hr vancomycin 1750 mg in NS 500 mL IVPB 1,750 mg, Intravenous, at 250 mL/hr, Once, 1 dose, On Sat07/25/22 at 1815 New Bag 07/25/2022 6:59 PM THERAPEUTIC SPECIALIST 1,750 mg 250 mL/hr documented in this encounter Active and Recently Administered Medications Times are shown in THERAPEUTIC SPECIALIST. Scheduled Medication Order 08/06/2022 08/07/2022 08/08/2022 ceFEPIme (MAXIPIME) 2 g in sodium chloride (PF) 0.9 % 10 mL IV (CANCELED) 2 g, Intravenous, Administer over 5 Minutes, Every 12 hours, First dose on Sat07/25/22 at 1800, Until Discontinued 0538 (Given - Provider: Gadiel Fitch RN) cefTRIAXone (ROCEPHIN) 2 g in sodium chloride 0.9 % 50 mL IVPB 2 g, Intravenous, at 100 mL/hr, Every 24 hours, First dose on Sat08/06/22 at 1400, Until Discontinued 1325 (New Bag - Provider: Miguel Cisse RN)1533 (Infusion Stop Time - Provider: Miguel Cisse RN) 1458 (New Bag - Provider: Kia Feliciano RN)1600 (Infusion Stop Time - Provider: Beata Chavarria RN) 1055 (New Bag - Provider: Anisa Anthony RN)1125 (Due: Infusion Stop Time - Provider: Anisa Anthony RN) enoxaparin (LOVENOX) 40 MG/0.4ML syringe 40 mg 40 mg, Subcutaneous, Nightly (enoxaparin), First dose on Sat08/03/22 at 2100, Until Discontinued, Administer by deep SubQ injection alternating between the left or right anterolateral and left or right posterolateral abdominal wall. 2134 (Given - Provider: Merary Langley RN) 2034 (Given - Provider: Merary Langley RN) FLUoxetine (PROzac) capsule 20 mg 20 mg, Oral, Daily, First dose on Sat07/25/22 at 1700, Until Discontinued 1003 (Given - Provider: Miguel Cisse RN) 0851 (Given - Provider: Kia Feliciano RN) 0844 (Given - Provider: Anisa Anthony RN) gabapentin (NEURONTIN) capsule 300 mg 300 mg, Oral, 2 times daily, First dose on Sat07/25/22 at 2100, Until Discontinued 1003 (Given - Provider: Miguel Cisse RN)2135 (Given - Provider: Merary Langley RN) 0851 (Given - Provider: Kia Feliciano, ALANNAH)2034 (Given - Provider: Merary Langley RN) 0844 (Given - Provider: Anisa Anthony RN) ipratropium-albuterol (COMBIVENT RESPIMAT) 20-100 MCG/ACT inhaler 1 puff 1 puff, Inhalation, Every 4 hours, First dose on Sat07/31/22 at 1930, Until Discontinued, Neb sub Shake Well. Prime inhaler prior to first use. 0411 (Not Given - Provider: Gadiel Fitch RN - Reason: Patient sleeping)0539 (Given - Provider: Gadiel Fitch RN)1311 (Given - Provider: Miguel Cisse RN)1631 (Not Given - Provider: Miguel Cisse RN - Reason: Patient already took)2135 (Given - Provider: Merary Langley RN) 0007 (Not Given - Provider: Merary Langley RN - Reason: Patient already took)0333 (Given - Provider: Merary Langley, ALANNAH)0851 (Given - Provider: Kia Feliciano, ALANNAH)1231 (Given - Provider: Kia Feliciano, ALANNAH)1600 (Not Given - Provider: Beata Chavarria RN - Reason: Other)1717 (Given - Provider: Beata Chavarria RN)2252 (Given - Provider: Merary Langley RN) 0227 (Given - Provider: Merary Langley RN)0848 (Given - Provider: Anisa Anthony, ALANNAH)1059 (Given - Provider: Anisa Anthony RN) lactated ringers bolus infusion 500 mL (COMPLETED) 500 mL, Intravenous, Administer over 15 Minutes, Once, 1 dose, On Sat08/07/22 at 1430 1458 (New Bag - Provider: Kia Feliciano RN)1600 (Infusion Stop Time - Provider: Beata Chavarria RN) lidocaine 4 % patch 1 patch 1 patch, Transdermal, Administer over 12 Hours, Every 24 hours, First dose on Sat08/03/22 at 0615, Until Discontinued 0538 (Patch Applied - Provider: Gadiel Fitch RN)1826 (Patch Removed - Provider: Miguel Cisse RN) 0547 (Patch Applied - Provider: Merary Langley RN)1718 (Patch Removed - Provider: Beata Chavarria, ALANNAH) 0601 (Patch Applied - Provider: Merary Langley RN)1150 (Due: Patch Removed - Provider: Automatic Discharge Provider - Comment: Time automatically adjusted from order being discontinued) metroNIDAZOLE (FLAGYL) tablet 500 mg 500 mg, Oral, Every 8 hours scheduled (3 times per day), First dose on Sat07/30/22 at 1430, Until Discontinued 0539 (Given - Provider: Gadiel Fitch RN)1325 (Given - Provider: Miguel Cisse RN)2136 (Given - Provider: Merary Langley RN) 0547 (Given - Provider: Merary Langley RN)1458 (Given - Provider: Kia Feliciano RN)2252 (Given - Provider: Merary Langley RN) 0600 (Given - Provider: Merary Langley RN) normal saline 0.9 % flush 3-10 mL 3-10 mL, Intravenous, Every 8 hours, First dose on Sat08/02/22 at 0945, Until Discontinued, Post-Op 0411 (Not Given - Provider: Gadiel Fitch RN - Reason: Patient already took)1004 (Given - Provider: Miguel Cisse RN)1632 (Not Given - Provider: Miguel Cisse RN - Reason: Patient already took) 0007 (Not Given - Provider: Merary Langley RN - Reason: Other - Comment: flushed 2199)1136 (Not Given - Provider: Kia Feliciano RN - Reason: Patient already took)1715 (Not Given - Provider: Beata Chavarria RN - Reason: Patient already took)2252 (Given - Provider: Merary Langley RN) 0848 (Given - Provider: Anisa Anthony RN) polyethylene glycol (GLYCOLAX) packet 17 g 17 g, Oral, 2 times daily, First dose on Sat08/02/22 at 0945, Until Discontinued, Until bowel movement, then discontinue, Post-Op 1004 (Not Given - Provider: Miguel Cisse RN - Reason: Patient already took - Comment: pt states he already took a dose and does not want another)213 (Given - Provider: Merary Langley RN) 0851 (Given - Provider: Kia Feliciano RN)2034 (Given - Provider: Merary Langley RN) 0847 (Not Given - Provider: Anisa Anthony RN - Reason: Patient/family declined) traZODone (DESYREL) tablet 100 mg 100 mg, Oral, Nightly at bedtime, First dose on Sat07/25/22 at 2100, Until Discontinued 2135 (Given - Provider: Merary Langley RN) 2034 (Given - Provider: Merary Langley RN) vancomycin 1000 mg in NS 250 mL IVPB (CANCELED) 1,000 mg, Intravenous, at 250 mL/hr, Every 12 hours, First dose on 07/28/22 at 1130, Until Discontinued 0538 (New Bag - Provider: Gadiel Fitch RN)0638 (Infusion Stop Time - Provider: Gadiel Fitch RN) PRN Medication Order 08/06/2022 08/07/2022 08/08/2022 acetaminophen (TYLENOL) tablet 650 mg 650 mg, Oral, Every 4 hours PRN, Mild pain (Scale 1 - 3), Starting on Sat07/25/22 at 1354, Until Sat08/08/22 at 1357, Maximum dose of acetaminophen is 4000 mg from all sources in 24 hours. albuterol sulfate HFA 108 (90 Base) MCG/ACT inhaler 2 puff 2 puff, Inhalation, Every 4 hours PRN, Wheezing, Shortness of breath, Starting on Sat07/25/22 at 1355, Until Sat08/08/22 at 1357 alteplase (CATHFLO) injection Code/trauma/sedation medication, Starting on Sat07/27/22 at 1034, Until Sat08/08/22 at 1357 calcium carbonate (TUMS) chewable tablet 500 mg 500 mg, Oral, Daily as needed, Indigestion, Starting on 08/04/22 at 1439, Until Sat08/08/22 at 1357 HYDROcodone-acetaminophe n (NORCO) 10-325 MG tablet 1 tablet 1 tablet, Oral, Every 6 hours PRN, Moderate pain (Scale 4 - 7), Severe pain (Scale 8 - 10), Starting on Sat07/25/22 at 1634, Until Sat08/08/22 at 1357, Second line for moderate pain Maximum dose of acetaminophen is 4000 mg from all sources in 24 hours. 0545 (Given - Provider: Gadiel Fitch RN)1325 (Given - Provider: Miguel Cisse RN) 0333 (Given - Provider: Merary Langley RN)0855 (Given - Provider: Kia Feliciano RN)2035 (Given - Provider: Merary Langley RN) 0600 (Given - Provider: Merary Langley RN) influenza virus vaccine (QUAD) injection 0.5 mL 0.5 mL, Intramuscular, Once as needed, Other, give before discharge, 1 dose, Starting on Zulema 07/26/22 at 1245, Until Sat08/08/22 at 1357, Please give vaccine prior to discharge. lidocaine (XYLOCAINE) 1 % injection SOLN Code/trauma/sedation medication, Starting on Sat07/27/22 at 1016, Until Sat08/08/22 at 1357 LORazepam (ATIVAN) tablet 1 mg 1 mg, Oral, 2 times daily PRN, Anxiety, Starting on Sat07/25/22 at 1634, Until Sat08/08/22 at 1357 0216 (Given - Provider: Gadiel Fitch RN)1325 (Given - Provider: Miguel Cisse, ALANNAH) 0333 (Given - Provider: Merary Langley RN)1713 (Given - Provider: Beata Chavarria RN) 1025 (Given - Provider: Anisa Anthony RN) morphine (MSIR) tablet 30 mg 30 mg, Oral, Every 8 hours PRN, Moderate pain (Scale 4 - 7), Starting on Sat07/25/22 at 1634, Until Sat08/08/22 at 1357, First line for moderate pain 0216 (Given - Provider: Gadiel Fitch RN)1028 (Given - Provider: Miguel Cisse RN)2136 (Given - Provider: Merary Langley RN) 1230 (Given - Provider: Kia Feliciano RN)1715 (Given - Provider: Beata Chavarria, ALANNAH) 0226 (Given - Provider: Merary Langley, ALANNAH)1025 (Given - Provider: Anisa Anthony RN) normal saline 0.9 % flush 3-10 mL 3-10 mL, Intravenous, As needed, Line care, Starting on Zulema 08/02/22 at 0915, Until Sat08/08/22 at 1357, Post-Op ondansetron (ZOFRAN) injection 4 mg 4 mg, Intravenous, Every 8 hours PRN, Nausea, Vomiting, Starting on Sat07/25/22 at 1355, Until Sat08/08/22 at 1357, IV push over 2-5 minutes. 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
--- OUTSIDE RECORDS SUMMARY | 2024-08-20 13:50 | XMS_ITS | Encounter Summary ---
Author Organization [facility] Address [address] [place] [address]. [place] [address] [place] [address] Care Team Providers Care Rock Singer Name Role Phone Mark Carmichael Primary Care Provider [phone] Encounter Details Date Type Department Care Team ([facility] st Contact Info) Description 08/09/2022 Plan of Care Documentation [facility] Home Care [facility] [address] [place] [address] Social History Tobacco Use Types Packs/Day Years [...] Coronavirus/COVID-19? No / Unsure 08/03/2022 2:21 AM COUNTY HISTORIAN documented as of this encounter Functional Status * RETIRED Are you deaf or do you have serious difficulty hearing Answer Date of Assessment Author Status No 07/25/2022 11:00 PM COUNTY HISTORIAN Acti ve * RETIRED Are you blind or do you have serious difficulty seeing, even when wearing glasses? Answer Date of Assessment Author Status No 07/25/2022 11:00 PM COUNTY HISTORIAN Acti ve * Do you have serious [...] and discharge planning Lifestyle No Angela Dawkins, KNURLING MACHINE OPERATOR documented as of this encounter Visit Diagnoses Not on filedocumented in this encounter Care Teams Rock Singer Relationship Specialty Start Date End Date Mark Carmichael DO [address] [place] [address] PCP - General FAMILY PRACTICE 07/22/22 documented as of this encounter
--- OUTSIDE RECORDS SUMMARY | 2024-08-20 13:51 | XMS_ITS | Encounter Summary ---
Author Organization [facility] Address [facility] [place] [place] [address] [place] [address] Care Team Providers Care Design Draftsman Name Role Phone IrenaJoe garcia Primary Care Provider [phone] Reason for Visit * Auth/Cert (Routine) Specialty Diagnoses / Procedures Referred By Contac t Referred To Contact Diagnoses Respiratory failure (CMS/HCC [facility]/HCC) Acute respiratory failure Respiratory failure ([facility] Procedures NONE De Villasenor MD [address] [place] [address] Phone: tel: fax: Referral ID Status Reason Start Date Expiration Date Visits Re quested Visits Authorized [id number] 1 1 Encounter Details Date Type Department Care Team (Late st Contact Info) Description 08/02/2022 7:30 AM CRYPTOLOGIC SUPERVISOR - 08/02/2022 9:53 AM CRYPTOLOGIC SUPERVISOR [facility] [address] [place] [address] Ross Blackburn MD [address] [place] [address] THORACOSCOPY (VATS) WITH RIGHT DECORICATION Surgery Details Date/Time Status Location OR Service Patient Class Case Class Case Type Trauma Case? 08/02/2022 7:30 AM Posted [facility] OR Card 6 Thoracic Inpatient E - Elective No Panel 1 Procedure LRB Anes Op Region Wound Class Comments THORACOSCOPY (VATS) WITH RIG HT DECORICATION Right General Chest Clean Surgeon Surgeon Role Service Panel Ross Blackburn MD Primary Thoracic 1 Case Notes documented in this encounter Social History Tobacco Use Types Packs/Day Years [...] suspected to have Coronavirus/COVID-19? No / Unsure 07/31/2022 8:31 AM CRYPTOLOGIC SUPERVISOR documented as of this encounter Last Filed Vital Signs Vital Sign Reading Time Taken Comments Blood Pressure 104/45 08/02/2022 9:51 AM CRYPTOLOGIC SUPERVISOR Pulse 63 08/02/2022 9:51 AM CRYPTOLOGIC SUPERVISOR Temperature 36.1 ??C (97 ??F) 08/02/2022 9:25 AM CRYPTOLOGIC SUPERVISOR Respiratory Rate 18 08/02/2022 9:51 AM CRYPTOLOGIC SUPERVISOR Oxygen Saturation 95% 08/02/2022 9:42 AM CRYPTOLOGIC SUPERVISOR Inhaled Oxygen Concentration - - Weight 67.5 kg (148 lb 12.8 oz) 07/28/2022 3:26 AM CRYPTOLOGIC SUPERVISOR Height 165.1 cm (5' 5 ) 07/25/2022 1:30 PM CRYPTOLOGIC SUPERVISOR Body Mass Index 24.76 07/25/2022 1:30 PM CRYPTOLOGIC SUPERVISOR documented in this encounter Functional Status * Question Answer Date of Assessment Author Status Do you have serious difficulty walking or climbing stairs? No 07/25/2022 11:00 PM CRYPTOLOGIC SUPERVISOR Noelle Vega RN Active * Question Answer Date of Assessment Author Status Do you have difficulty dressing or bathing? No 07/25/2022 11:00 PM CRYPTOLOGIC SUPERVISOR Nan Vega RN Active Because of a physical, mental, or emotional condition, do you have difficulty doing errands alone such as visiting a doctor's office or shopping? No 07/25/2022 11:00 PM CRYPTOLOGIC SUPERVISOR Noelle Vega RN Active * RETIRED Are you deaf or do you have serious difficulty hearing Answer Date of Assessment Author Status No 07/25/2022 11:00 PM CRYPTOLOGIC SUPERVISOR Acti ve * RETIRED Are you blind or do you have serious difficulty seeing, even when wearing glasses? Answer Date of Assessment Author Status No 07/25/2022 11:00 PM CRYPTOLOGIC SUPERVISOR Acti ve * Do you have serious difficulty walking or climbing stairs? Answer Date of Assessment Author Status No 07/25/2022 11:00 PM CRYPTOLOGIC SUPERVISOR Katie Vega ma RN Active * Do you have difficulty dressing or bathing? Answer Date of Assessment Author Status No 07/25/2022 11:00 PM CRYPTOLOGIC SUPERVISOR Katie Vega ma RN Active * Because of a physical, mental, or emotional condition, do you have difficulty doing errands alone such as visiting a doctor's office or shopping? 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 [...] in stable condition Thank you for choosing [facility] AND [facility] HOSPITALIST SERVICE -PLEASE CALL [phone] ext [phone] IF QTS Code Status: Prior Procedure: Procedures [...] decubitus position on the CT table and [place] protocol was observed to verify correct patient, [...] CT. The tract was dilated to 12 Greek. During dilation, there was temporary retraction of the wire resulting in slight kinking and difficulty advancing the tube. Access was again regained using theone-step sheath needle, followed again by CT confirmation of position, wire placement, and tract dilation. A 12-Greek pigtail drainage catheter with the locking stitch [...] Date: 07/28/2022 Echocardiography Report Pat.Name: RAY PHILLIPS.ID: [id number] .Date: 07/27/2022 Refer.: [id number] NON-STAFF PROVIDER EWDPROV EWDPROV Exam Time: 12:44:00 PM Study Type:ECHO WITH CARDIAC DOPPLER COMP Height: 165 cm Weight: 68 kg BSA: 1.75 m2 Age: 9 1955,67Y Sex: M BP: 138/68 HR: 70 bpm Sonogrphr: Avery Marie [facility] Pat. Stat.:Inpatient Room: 742 [facility] - 4: [phone] Reason for Study:Pericardial effusion Procedures: 2D, M-mode, Doppler, Color Flow, Portable, Strain Imaging ++++++++++++++++++++++++++++++++++++ SUMMARY: ++++++++++++++++++++++++++++++++++++ The left ventricular size is normal. The calculated ejection fraction is 61%. Wall motion appears normal in all segments. The rightventricle is normal in size and function. No evidence of pericardial effusion. Aortic root is mildly dilated. Ascending aorta is mildly dilated. Inferior vena cava shows >50% collapse with respiration consistent with normal right atrial pressure. No significant valvular heart disease. +++++++++++ +++++++++++++++++++++++++ FINDINGS: ++++++++++++++++++++++++++++++++++++ LV: The left ventricular size is normal. The left ventricular systolic function is normal. The calculated ejection fraction is61%. Mild concentric left ventricular hypertrophy. The septal E/e' is indeterminate at 8-15. The lateral E/e' is normal at <8. The average E/e' is indeterminate at 9-12 and EF is > or equal to 50. Left ventricular diastolic function is abnormal. Left ventricular filling pressure is indeterminate. The LV strain is -17.3%. (Normal ranges are -18% to - 20%) WM: Wall motion appears normal in all [...] pkPG 6 mmHg AV pkVel 126 cm/s (1 00-170) Area (TVI) 3.09 cm2 (3-5) AV mnVel 85.9 cm/s Area (Aravind) 3.29 cm2 (3-5) AV mnPG 3 mmHg MV Forward Flow MV DeTm 272 msec MV pkPG 5 mmHg MVA P1/2t 2.72 cm2 (4-6)* MV E/A 0.7 MV P1/2t 81 msec (30-60)+* MV pkE 68.4 cm/s (60-130) MV mnPG 2 mmHg MV pkA 92.6 cm/s Lat E' Lat e 9.9 cm/s Lat E/E' LatE/e 6.9 Med E' Med e 7.07 cm/s Med E/E' Med E/e 9.7 Aortic Valve Aortic Valve Ar 1.77 Aortic Valve Ve 0.87 AV DI Value 0.8 STEPHANY (VTI) Index Value 1.77 LV Mass 2D Value 229 g LV Mass Eikfz6M Value 131 g/m2 Right Ventricle Right Ventricle [...] Procedure: Midline venous catheter placement. Grafts/Implants: 4 Greek midlinevenous catheter Interventional Radiologist: Óscar Teachers Aide: ANSON Keating tech Anesthesia: Local - 1% [...] centrally. Peel-away sheath was placed. A 4 Greek single lumen midline, 20 cm.This was advanced through the peel-away sheath and positioned under ultrasound guidance with tip atcentral basilic vein. Midline aspirated and flushed freely. Midline was secured in place with Stat L ock device and sterile dressing applied. No complications. Permanent ultrasound image was recorded.Radiation: Patient's radiation exposure - Reference Air Kerma [...] Disposition: HOME WITH HOME HEALTH @DOCUMENTATION OF [id number]-OP-LQMO ENCOUNTER FOR HOME HEALTH I attest that a Fgbl-vh-Nppa encounter with Ray Phillips was made on [...] are for medical reasons,or for attendance at taoism events; absences from home for nonmedical reasons [...] WHEN ANTIBIOTICS COMPLETED Patti Pineda MD [address] [address] Follow up in 1 week(s) Joe Tam DO [address] [facility] [address] Follow up in 1 week(s) Zoila Farias MD [address] [facility] [address] Follow up in 2 week(s) Ross Blackburn MD [address] [facility] [address] Follow up in 1 month(s) Follow up labs neededWhile on IV antibiotics, obtain weekly labs - CBC and CMP, please fax to [facility] at [phone] Follow up instructions ABOVE Discharge time spent: 35 minutes Signed: LANRE WINTER MD 08/08/2022 2:16 PM TOLOGIC SUPERVISOR documented in this encounter Discharge Instructions * Discharge Instructions* Raquel Wetzel MD - 08/07/2022 7:16 AM CRYPTOLOGIC SUPERVISOR ACTIVITY Your smaller incision will take about [...] the Cardiothoracic Surgery at any time at [phone] TOLOGIC SUPERVISOR documented in this encounter Medications at Time [...] D/C plans IDBR done with Dr Winter [facility] to discuss POC/D/C plans. See notes below. 08/08/22924 Interdisciplinary Group Conference Team Members Present Physician;Case/Care management Barriers to Discharge Barriers Other (Comment) Other (Comment)follow up D/C to home with [facility] and [facility] for IV supplies. TOLOGIC SUPERVISOR * Lanre Winter MD - 08/07/2022 2:04 [...] Mood and affect normal. LABS: Recent Labs 08/05/2221008/06/2242608/07/22 1012 WBC 6.6 5.1 -- HGB 7.0* 7.6* 7.7* HCT 22.0* 24.1* 23.7* MCV 101.4* 103.9* -- PLT 185 207 -- RBC 2.17* 2.32* -- Recent Labs 12/04/22 0211 12/05/22 0427 ALT 8* 8* AST 8* 9* CO2 27.9 27.3 CL 104 107 GLU 114* 87 K 3.4* 3.8 NA 136 140 BUN 11 8 No intake or output data in the 24 hours ending 08/07/22 1404 Microbiology Results (last 14 days) Procedure Component Value Units Date/Time CULTURE, ANAEROBIC [[id number]] Collected: 08/02/22837 Order Status: Completed Lab Status: Final result Updated: 08/07/22 0910 Specimen: TISSUE from OTHER (type in comments) Spec. Description TISSUE: RT DECORTICATION TISU Special Requests: NO SPECIAL REQUEST Culture Result: NO ANAEROBES ISOLATED CULTURE TB/AFB OTHER (TYPE IN COMMENTS) [[id number]] Collected: 08/02/22837 Order Status: Sent Lab Status: In process Updated: 08/02/22 1009 Specimen: TISSUE from OTHER (type in comments) CULTURE, FUNGUS [[id number]] Collected: 08/02/22837 Order Status: Sent Lab Status: In process Updated: 08/02/22 1010 Specimen: TISSUE from OTHER (type in comments) CULTURE, TISSUE W/GRAM STAIN [[id number]] Collected: 08/02/22837 Order Status: Completed Lab Status: Final result Updated: 08/07/22 1136 Specimen: TISSUE from OTHER (type in comments) Spec. Description TISSUE: RT DECORTICATION TISU Special Requests: NO SPECIAL REQUEST Gram Stain Result -- MODERATE NEUTROPHILS SEEN Gram Stain Result NO ORGANISMS SEEN Culture Result: NO GROWTH 5 DAYS SMEAR,FLUOR STAIN,ACID FAST [[id number]] Collected: 08/02/22837 Order Status: Completed Lab Status: Final result Updated: 08/05/221944 ACID FAST SMEAR RESULT SEE NOTE 08/05/2022 07:45 PM Comment: Test Result Flag Unit RefValue Acid Fast Smear For Mycobacterium SOURCE: LUNG, RIGHT, RT DECORTICATION TIS ACID FAST SMEAR FOR MYCOBACTERIUM FINAL Negative. Test Performed by: [place] [address] Paleontology Teacher: Brent Alcaraz M.D. Ph.D.; CLIA# [id number] CULTURE, FUNGUS [[id number]] Order Status: No result Lab Status: No result Specimen: BRONCHOALVEO LAV, RT LWR CULTURE TB/AFB OTHER (TYPE IN COMMENTS) [[id number]] Order Status: No result Lab Status: No result Specimen: BRONCHOALVEO LAV, RT LWR SMEAR,FLUOR STAIN,ACID FAST [[id number]] Order Status: No result Lab Status: No result Specimen: BRONCHOALVEO LAV, RT LWR CULTURE VIRAL RESPIRATORY RAPID [[id number]] Order Status: No result Lab Status: No result Specimen: BRONCHOALVEO LAV, RT LWR CULTURE RESPIRATORY W/ GRAM STAIN [[id number]] Order Status: No result Lab Status: No result Specimen: BRONCHIAL WASHING CULTURE, FUNGUS [[id number]] Order Status: No result Lab Status: No result Specimen: BRONCHIAL WASHING CULTURE TB/AFB OTHER (TYPE IN COMMENTS) [[id number]] Order Status: No result Lab Status: No result Specimen: BRONCHIAL WASHING SMEAR,FLUOR STAIN,ACID FAST [[id number]] Order Status: No result Lab Status: No result Specimen: BRONCHIAL WASHING CULTURE VIRAL RESPIRATORY RAPID [[id number]] Order Status: No result Lab Status: No result Specimen: BRONCHIAL WASHING CULTURE, QUANTITATIVE W/ GRAM STAIN [[id number]] Order Status: No result Lab Status: No result Specimen: BRONCHOALVEO LAV, RT LWR CULTURE, FUNGUS [[id number]] Collected: 07/30/22 153 Order Status: No result Lab Status: In process Updated: 07/30/22 1701 CULTURE RESPIRATORY W/ GRAM STAIN [[id number]] Collected: 07/30/22 153 Order Status: Completed Lab Status: Final result Updated: 08/03/22 1228 Specimen: SITE Spec. Description SITE: BRONCH WASH Special Requests: NO SPECIAL REQUEST Gram Stain Result -- MANY NEUTROPHILS SEEN Gram Stain Result NO ORGANISMS SEEN Culture Result: -- FEW TETE ALBICANS SMEAR,FLUOR STAIN,ACID FAST [[id number]] Collected: 07/30/221529 Order Status: Completed Lab Status: Final result Updated: 08/01/22 2318 ACID FAST SMEAR RESULT SEE NOTE 08/01/2022 11:18 PM Comment: Test Result Flag Unit RefValue Acid Fast Smear For Mycobacterium SOURCE: BRONCHIAL WASHING, BWASH/BAL MIX ACID FAST SMEAR FOR MYCOBACTERIUM FINAL Negative. Test Performed by: [place] [address] Paleontology Teacher: Brent Alcaraz M.D. Ph.D.; CLIA# [id number] CULTURE TB/AFB OTHER [[id number]] Collected: 07/30/221529 Order Status: No result Lab Status: In process Updated: 07/30/22 1704 CULTURE, QUANTITATIVE W/ GRAM STAIN [[id number]] Collected: 07/30/221529 Order Status: Completed Lab Status: Final result Updated: 08/02/22 1457 Specimen: SITE Spec. Description SITE: BAL RLL Special Requests: NO SPECIAL REQUEST Gram Stain Result <10 NEUTROPHILS PER LPF Gram Stain Result <10 EPITHELIAL CELLS PER LPF Gram Stain Result -- RARE GRAM NEGATIVE RODS Culture Result: -- 500 CFU/ML YEAST , ID UPON REQUEST CULTURE, FUNGUS [[id number]] Collected: 07/30/221529 Order Status: Canceled Lab Status: No result SMEAR,FLUOR STAIN,ACID FAST [[id number]] Collected: 07/30/221529 Order Status: Canceled Lab Status: No result CULTURE TB/AFB OTHER [[id number]] Collected: 07/30/221529 Order Status: Canceled Lab Status: No result CULTURE CMV [[id number]] Collected: 07/30/221529 Order Status: Completed Lab Status: Final result Updated: 08/06/22 1738 CYTOMEGALOVIRUS CULTURE REPORT Comment: CMV Rapid Culture SOURCE : BAL RESULT Not Isolated Reference Range: Not Isolated Test Performed by [facility], [address] [place], [place] Adrián Balderas M.D., Ph.D., Director of Laboratories , CLIA [id number] SPECIMEN SOURCE BAL/BWASH MIX IN VTM 1 TO 1 RATIO, FRZ NEG 70 CULTURE HERPES [[id number]] Collected: 07/30/22 1530 Order Status: Completed Lab Status: Final result Updated: 08/03/22 1542 HERPES SIMPLEX VIRUS CULTURE REPORT Comment: Herpes Simplex Virus Culture SOURCE : BAL/BWASH MIX IN RESULT Not Isolated Reference Range: Not Isolated Test Performed by [facility], [address] [place] [address] Adrián Balderas M.D., Ph.D., Director of Laboratories , CLIA [id number] Specimen Type BAL/BWASH MIX IN VTM 1 TO 1 RATIO, FRZ NEG 70 CULTURE VIRAL RESPIRATORY RAPID [[id number]] Collected: 07/30/22 1530 Order Status: Completed Lab Status: Final result Updated: 08/05/22 1522 VIRAL RESP RAPID CULTURE W/RFX REPORT Comment: Respiratory Culture Screen SOURCE : BWASH/BAL MIX IN RESULT Negative for Influenza virus, types A and B, Parainfluenza viruses 1,2 # 3, Adenovirus, and Respiratory Syncytial virus. Reference range: Negative Rapid Respiratory Viruses Not indicated Test Performed by [facility], [address] [place], [place] Adrián Balderas M.D., Ph.D., Director of Laboratories , CLIA [id number] Specimen Type BWASH/BAL MIX IN VTM 1 TO 1 RATIO, FRZ NEG 70 CULTURE RESPIRATORY W/ GRAM STAIN [[id number]] Collected: 07/28/22 1425 Order Status: Completed Lab Status: Final result [...] -- MODERATE PRESUMPTIVE TETE ALBICANS CULTURE, FUNGUS [[id number]] Collected: 07/28/221424 Order Status: Sent Lab Status: In process Updated: 07/31/22 133 Specimen: SPUTUM, EXPECTORATED CULTURE TB/AFB OTHER (TYPE IN COMMENTS) [[id number]] Collected: 07/28/221424 Order Status: Canceled Lab Status: No result Specimen: SPUTUM, EXPECTORATED SMEAR,FLUOR STAIN,ACID FAST [[id number]] Collected: 07/28/221424 Order Status: No result Lab Status: In process Updated: 07/28/22 1612 HISTOPLASMA ANTIGEN [[id number]] Collected: 07/28/221423 Order Status: Sent Lab Status: No result Specimen: BLOOD HISTOPLASMA ANTIGEN [[id number]] Collected: 07/28/221423 Order Status: Canceled Lab Status: No result Specimen: BLOOD GLUCOSE, BODY FLUID [[id number]] Order Status: Canceled Lab Status: No result Specimen: PLEURAL FLUID PH BODY FLUID [[id number]] Order Status: Canceled Lab Status: No result Specimen: PLEURAL FLUID CULTURE, BODY FLUID W/ GRAM STAIN [[id number]] Order Status: Canceled Lab Status: No result Specimen: PLEURAL FLUID CULTURE, ANAEROBIC [[id number]] Order Status: Canceled Lab Status: No result Specimen: PLEURAL FLUID CULTURE, FUNGUS [[id number]] Order Status: Canceled Lab Status: No result Specimen: PLEURAL FLUID LDH BODY FLUID [[id number]] Collected: 07/27/22 103 Order Status: Completed Lab Status: Final result Updated: 07/27/22 152 Specimen: PLEURAL FLUID FLUID LDH >4,000 UNITS/L Comment: REFERENCE RANGE NOT ESTABLISHED FOR THIS BODY FLUID. SOURCE (FLUID) PLEURAL FLUID CELL COUNT W/ DIFF BODY FLUID [[id number]] Collected: 07/27/22 1030 Order Status: Completed Lab Status: Final result Updated: 07/27/22 1545 Specimen: PLEURAL FLUID SOURCE (FLUID) PLEURAL FLUID FL WBC 144.450 x10'3/uL Comment: REFERENCE RANGE NOT ESTABLISHED FL RBC 0.090 x10'6/uL Comment: REFERENCE RANGE NOT ESTABLISHED DIFFERENTIAL MANUAL DIFFERENTIAL PERFORMED ON CONCENTRATED CYTOSPIN CELLS COUNTED 100 No COUNTED SEGS (FLUID) 97 % LYMPHS (FLUID) 3 % PROTEIN TOTAL FLUID [[id number]] Collected: 07/27/221029 Order Status: Completed Lab Status: Final result Updated: 07/27/22 152 Specimen: PLEURAL FLUID PROTEIN (FLUID) 3.5 G/DL Comment: REFERENCE RANGE NOT ESTABLISHED FOR THIS BODY FLUID. SOURCE (FLUID) PLEURAL FLUID CULTURE, BODY FLUID W/ GRAM STAIN [[id number]] Collected: 07/27/221029 Order Status: Canceled Lab Status: No result Specimen: PLEURAL FLUID CULTURE, ANAEROBIC [[id number]] Collected: 07/27/221029 Order Status: Canceled Lab Status: No result Specimen: PLEURAL FLUID CULTURE, BODY FLUID W/ GRAM STAIN [[id number]] (Susceptibility) Collected: 07/27/221029 Order Status: Completed Lab [...] Sensitive TRIMETH-SULFAMETH. Resistant VANCOMYCIN Sensitive CULTURE, ANAEROBIC [[id number]] (Susceptibility) Collected: 07/27/221029 Order Status: Completed Lab Status: Final result Updated: 08/01/22 08 Specimen: SITE Spec. Description SITE: RT PLEURAL FLUID Special Requests: NO SPECIAL REQUEST Culture Result: -- FEW MICROAEROPHILIC STREPTOCOCCUS Susceptibility Microaerophilic streptococcus ARLEN (ETEST) CEFOTAXIME 0.023 Sensitive PENICILLIN G 0.008 Sensitive BLASTOMYCES AG MVISTA (TM), EIA [[id number]] Order Status: No result Lab Status: No result Specimen: BLOOD BLASTOMYCES AG MVISTA (TM), EIA [[id number]] Order Status: No result Lab Status: No result Specimen: URINE CORONAVIRUS (COVID 19) PCR - Asymptomatic patients, may be completed at physician discretion [[id number]] Collected: 07/25/222031 Order Status: Canceled Lab Status: No result Specimen: NASOPHARYNGEAL SWAB STREP PNEUMO AG URINE [[id number]] Collected: 07/25/222030 Order Status: Completed Lab Status: [...] Type URINE VOIDED MRSA PCR nares Screening [[id number]] Collected: 07/25/222030 Order Status: Canceled Lab Status: No result Specimen: NASAL CULTURE, BACTERIA, BLOOD [[id number]] Collected: 07/25/221416 Order Status: Completed Lab Status: Final result Updated: 07/30/222144 Specimen: BLOOD Spec. Description BLOOD Special Requests: NO SPECIAL REQUEST Culture Result: NO GROWTH 5 DAYS CULTURE, BACTERIA, BLOOD [[id number]] Collected: 07/25/221415 Order Status: Completed Lab Status: [...] with the following history as recorded in [facility]: Problem List Items Addressed This Visit None [...] up LANRE WINTER MD 2:04 PM 08/07/2022 TOLOGIC SUPERVISOR * Angela Dawkins RN - 08/07/2022 10:15 AM CSTSummary: D/C plans IDBR done with Dr Winter [facility] to discuss POC/D/C plans. See notes below. [address] Winter about making pt Gen with tele status-Pt can downgrade to Gen with Tele status. Let Aissatou Borges RN 7th slot floor person know this info. 1330 Cost of IV meds: $100.55 per week. Shirley Gaffney spoke with pt about this and pt is agreeable with cost. 1530 Pt/ and ALANNAH Adam thought he was going home today. I spoke with Marcelo aWtson, meds cannot be delivered till [place] 08/09 and [facility] plans to see pt [place]. Let Dr Winter, pt/, pt's ALANNAH Adam know this info. 08/07/22 1015 Interdisciplinary Group Conference Team Members Present Case/Care management;Physician Barriers to Discharge Barriers Not Medically ready Not Medically ready follow up Continue IMC status. On IV antibiotics through 08/30/22. CM spoke with pt/ about [facility] and [facility] about D/C plans possibly for 08/08/22. They chose [facility] for HHS agency. Ref sent/called to Shirley at [facility] and Doc jorge to [facility] about referral. TOLOGIC SUPERVISOR TOLOGIC SUPERVISOR TOLOGIC SUPERVISOR * Raquel Wetzel MD - 08/07/2022 7:17 [...] (enoxaparin), Lanre Winter MD, 40 mg at 08/06/222134 ??? FLUoxetine (PROzac) capsule 20 mg, 20 mg, Oral, Daily, Tracy Yo MD, 20 mg at 08/06/22 1003 ??? gabapentin (NEURONTIN) capsule 300 mg, 300 mg, Oral, BID, Tracy Yo MD, 300 mg at 08/06/222135 ??? HYDROcodone-acetaminophen (NORCO) 10-325 MG tablet 1 tablet, 1 tablet, Oral, Q6H PRN, Tracy Yo MD, 1 tablet at 08/07/22332 ??? influenza virus vaccine (QUAD) injection 0.5 mL, 0.5 mL, Intramuscular, Once PRN, Florencio Amaya MD ??? ipratropium-albuterol (COMBIVENT RESPIMAT) 20-100 MCG/ACT inhaler 1 puff, 1 puff, Inhalation, Q4H, Lanre Winter MD, 1 puff at 08/07/22332 ??? lidocaine (XYLOCAINE) 1 % injection SOLN, , , Code/Trauma/Sedation Med, Raul Osuna MD, 8 mLat 07/27/22 1016 ??? lidocaine 4 % patch 1 patch, 1 patch, Transdermal, Q24H, Raquel Wetzel MD, 1 patch at 08/07/22 0547 ??? LORazepam (ATIVAN) tablet 1 mg, 1 mg, Oral, BID PRN, Tracy Yo MD, 1 mg at 08/07/22332 ??? metroNIDAZOLE (FLAGYL) tablet 500 mg, 500 [...] Oral, BID, JOSEPH Whitehead, 17 g at 08/06/222136 ??? senna-docusate (SENOKOT-S) 8.6-50 MG tablet 1 [...] Ross Blackburn MD at 08/09/2022 8:49 AM CRYPTOLOGIC SUPERVISOR TOLOGIC SUPERVISOR TOLOGIC SUPERVISOR * Merary Langley RN - 08/07/2022 2:34 [...] Goal: Absence of venous thromboembolism Outcome: Progressing TOLOGIC SUPERVISOR * Maggie Fong MD - 08/06/2022 3:24 PM CSTSummary: [facility] Progress note [facility] INFECTIOUS DISE[facility] PROGRESS NOTE Attending Provider:Dr. 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 diff) -Plan as above discussed with patient, all voiced questions/concerns addressed, voiced agreement and understanding with plan. Thank you for consulting [facility] Infectious Disease. Paulina Dale NP 08/06/22 [facility] ATTENDING I, MAGGIE FONG MD, performed an examination of the patient and discussed the management with the ASSISTANT DIRECTOR OF FINANCIAL AID. I reviewed the ASSISTANT DIRECTOR OF FINANCIAL AID's progress note and agree with the findings [...] date Antimicrobial Regimen Unknown Abx regiment at [facility] Vancomycin IV 1.25g every 24h(07/25 - ) [...] day, Paulina Dale NP, 500 mg at 08/06/22 1325 ??? morphine [...] Tracy Yo MD, 100 mg at 08/05/222051 TOLOGIC SUPERVISOR TOLOGIC SUPERVISOR TOLOGIC SUPERVISOR * Ilana Dove RRT - 08/06/2022 2:45 PM CSTSummary: home oxygen [...] Charge $ Home Oxygen Evaluation Charge Yes TOLOGIC SUPERVISOR * Nimisha Meyer RD - 08/06/2022 2:28 PM CST CLINICAL DIETITIAN RESCREEN Patient is a 67-year-old male admitted secondary to Respiratory failure ([facility]) [J96.90]. Past Medical History: Diagnosis Date ??? [...] Start nutrition assessment NIMISHA MEYER RD, LDN TOLOGIC SUPERVISOR * Lanre Winter MD - 08/06/2022 2:03 [...] Mood and affect normal. LABS: Recent Labs 08/04/22 0234 08/05/2221008/06/22426 WBC 8.5 6.6 5.1 HGB 7.6* 7.0* 7.6* HCT 24.4* 22.0* 24.1* MCV 102.1* 101.4* 103.9* PLT 178 185 207 RBC 2.39* 2.17* 2.32* Recent Labs 08/04/22 0234 08/05/2221008/06/22426 ALT 11* 8* 8* AST 11* [...] Procedure Component Value Units Date/Time CULTURE, ANAEROBIC [[id number]] Collected: 08/02/22837 Order Status: Completed Lab Status: Preliminary result Updated: 08/03/22 1524 Specimen: TISSUE from OTHER (type in comments) Spec. Description TISSUE: RT DECORTICATION TISU Special Requests: NO SPECIAL REQUEST Culture Result: -- NO ANAEROBES ISOLATED TO DATE CULTURE TB/AFB OTHER (TYPE IN COMMENTS) [[id number]] Collected: 08/02/22837 Order Status: Sent Lab Status: In process Updated: 08/02/22 1009 Specimen: TISSUE from OTHER (type in comments) CULTURE, FUNGUS [[id number]] Collected: 08/02/22837 Order Status: Sent Lab Status: In process Updated: 08/02/22 1010 Specimen: TISSUE from OTHER (type in comments) CULTURE, TISSUE W/GRAM STAIN [[id number]] Collected: 08/02/22837 Order Status: Completed Lab Status: Preliminary result Updated: 08/06/22 1203 Specimen: TISSUE from OTHER (type in comments) Spec. Description TISSUE: RT DECORTICATION TISU Special Requests: NO SPECIAL REQUEST Gram Stain Result -- MODERATE NEUTROPHILS SEEN Gram Stain Result NO ORGANISMS SEEN Culture Result: NO GROWTH 4 DAYS SMEAR,FLUOR STAIN,ACID FAST [[id number]] Collected: 08/02/22837 Order Status: Completed Lab Status: Final result Updated: 08/05/221944 ACID FAST SMEAR RESULT SEE NOTE 08/05/2022 07:45 PM Comment: Test Result Flag Unit RefValue Acid Fast Smear For Mycobacterium SOURCE: LUNG, RIGHT, RT DECORTICATION TIS ACID FAST SMEAR FOR MYCOBACTERIUM FINAL Negative. Test Performed by: [facility] - [address] [address] Paleontology Teacher: Brent Alcaraz M.D. Ph.D.; CLIA# [id number] CULTURE, FUNGUS [[id number]] Order Status: No result Lab Status: No result Specimen: BRONCHOALVEO LAV, RT LWR CULTURE TB/AFB OTHER (TYPE IN COMMENTS) [[id number]] Order Status: No result Lab Status: No result Specimen: BRONCHOALVEO LAV, RT LWR SMEAR,FLUOR STAIN,ACID FAST [[id number]] Order Status: No result Lab Status: No result Specimen: BRONCHOALVEO LAV, RT LWR CULTURE VIRAL RESPIRATORY RAPID [[id number]] Order Status: No result Lab Status: No result Specimen: BRONCHOALVEO LAV, RT LWR CULTURE RESPIRATORY W/ GRAM STAIN [[id number]] Order Status: No result Lab Status: No result Specimen: BRONCHIAL WASHING CULTURE, FUNGUS [[id number]] Order Status: No result Lab Status: No result Specimen: BRONCHIAL WASHING CULTURE TB/AFB OTHER (TYPE IN COMMENTS) [[id number]] Order Status: No result Lab Status: No result Specimen: BRONCHIAL WASHING SMEAR,FLUOR STAIN,ACID FAST [[id number]] Order Status: No result Lab Status: No result Specimen: BRONCHIAL WASHING CULTURE VIRAL RESPIRATORY RAPID [[id number]] Order Status: No result Lab Status: No result Specimen: BRONCHIAL WASHING CULTURE, QUANTITATIVE W/ GRAM STAIN [[id number]] Order Status: No result Lab Status: No result Specimen: BRONCHOALVEO LAV, RT LWR CULTURE, FUNGUS [[id number]] Collected: 07/30/221529 Order Status: No result Lab Status: In process Updated: 07/30/22 1701 CULTURE RESPIRATORY W/ GRAM STAIN [[id number]] Collected: 07/30/22 153 Order Status: Completed Lab Status: Final result Updated: 08/03/22 1228 Specimen: SITE Spec. Description SITE: BRONCH WASH Special Requests: NO SPECIAL REQUEST Gram Stain Result -- MANY NEUTROPHILS SEEN Gram Stain Result NO ORGANISMS SEEN Culture Result: -- FEW TETE ALBICANS SMEAR,FLUOR STAIN,ACID FAST [[id number]] Collected: 07/30/22 1530 Order Status: Completed Lab Status: Final result Updated: 08/01/22 2310 ACID FAST SMEAR RESULT SEE NOTE 08/01/2022 11:18 PM Comment: Test Result Flag Unit RefValue Acid Fast Smear For Mycobacterium SOURCE: BRONCHIAL WASHING, BWASH/BAL MIX ACID FAST SMEAR FOR MYCOBACTERIUM FINAL Negative. Test Performed by: [facility] - [address] [address] Paleontology Teacher: Brent Alcaraz M.D. Ph.D.; CLIA# [id number] CULTURE TB/AFB OTHER [[id number]] Collected: 07/30/221529 Order Status: No result Lab Status: In process Updated: 07/30/22 1704 CULTURE, QUANTITATIVE W/ GRAM STAIN [[id number]] Collected: 07/30/221529 Order Status: Completed Lab Status: Final result Updated: 08/02/22 1457 Specimen: SITE Spec. Description SITE: BAL RLL Special Requests: NO SPECIAL REQUEST Gram Stain Result <10 NEUTROPHILS PER LPF Gram Stain Result <10 EPITHELIAL CELLS PER LPF Gram Stain Result -- RARE GRAM NEGATIVE RODS Culture Result: -- 500 CFU/ML YEAST , ID UPON REQUEST CULTURE, FUNGUS [[id number]] Collected: 07/30/221529 Order Status: Canceled Lab Status: No result SMEAR,FLUOR STAIN,ACID FAST [[id number]] Collected: 07/30/221529 Order Status: Canceled Lab Status: No result CULTURE TB/AFB OTHER [[id number]] Collected: 07/30/221529 Order Status: Canceled Lab Status: No result CULTURE CMV [[id number]] Collected: 07/30/221529 Order Status: No result Lab Status: In process Updated: 07/31/22 1431 CULTURE HERPES [[id number]] Collected: 07/30/221529 Order Status: Completed Lab Status: Final result Updated: 08/03/22 154 HERPES SIMPLEX VIRUS CULTURE REPORT Comment: Herpes Simplex Virus Culture SOURCE : BAL/BWASH MIX IN RESULT Not Isolated Reference Range: Not Isolated Test Performed by Javier Benítez, [facility], [address] [place] [address] Adrián Balderas M.D., Ph.D., Director of Laboratories , CLIA [id number] Specimen Type BAL/BWASH MIX IN VTM 1 TO 1 RATIO, FRZ NEG 70 CULTURE VIRAL RESPIRATORY RAPID [[id number]] Collected: 07/30/22 1530 Order Status: Completed Lab Status: Final result Updated: 08/05/22 1522 VIRAL RESP RAPID CULTURE W/RFX REPORT Comment: Respiratory Culture Screen SOURCE : BWASH/BAL MIX IN RESULT Negative for Influenza virus, types A and B, Parainfluenza viruses 1,2 # 3, Adenovirus, and Respiratory Syncytial virus. Reference range: Negative Rapid Respiratory Viruses Not indicated Test Performed by [facility], [facility], [address] [place], [place] Adrián Balderas M.D., Ph.D., Director of Laboratories , CLIA [id number] Specimen Type BWASH/BAL MIX IN VTM 1 TO 1 RATIO, FRZ NEG 70 CULTURE RESPIRATORY W/ GRAM STAIN [[id number]] Collected: 07/28/221424 Order Status: Completed Lab Status: [...] -- MODERATE PRESUMPTIVE TETE ALBICANS CULTURE, FUNGUS [[id number]] Collected: 07/28/221424 Order Status: Sent Lab Status: In process Updated: 07/31/22 1336 Specimen: SPUTUM, EXPECTORATED CULTURE TB/AFB OTHER (TYPE IN COMMENTS) [[id number]] Collected: 07/28/221424 Order Status: Canceled Lab Status: No result Specimen: SPUTUM, EXPECTORATED SMEAR,FLUOR STAIN,ACID FAST [[id number]] Collected: 07/28/221424 Order Status: No result Lab Status: In process Updated: 07/28/22 1612 HISTOPLASMA ANTIGEN [[id number]] Collected: 07/28/221423 Order Status: Sent Lab Status: No result Specimen: BLOOD HISTOPLASMA ANTIGEN [[id number]] Collected: 07/28/22 1424 Order Status: Canceled Lab Status: No result Specimen: BLOOD GLUCOSE, BODY FLUID [[id number]] Order Status: Canceled Lab Status: No result Specimen: PLEURAL FLUID PH BODY FLUID [[id number]] Order Status: Canceled Lab Status: No result Specimen: PLEURAL FLUID CULTURE, BODY FLUID W/ GRAM STAIN [[id number]] Order Status: Canceled Lab Status: No result Specimen: PLEURAL FLUID CULTURE, ANAEROBIC [[id number]] Order Status: Canceled Lab Status: No result Specimen: PLEURAL FLUID CULTURE, FUNGUS [[id number]] Order Status: Canceled Lab Status: No result Specimen: PLEURAL FLUID LDH BODY FLUID [[id number]] Collected: 07/27/221029 Order Status: Completed Lab Status: Final result Updated: 07/27/221521 Specimen: PLEURAL FLUID FLUID LDH >4,000 UNITS/L Comment: REFERENCE RANGE NOT ESTABLISHED FOR THIS BODY FLUID. SOURCE (FLUID) PLEURAL FLUID CELL COUNT W/ DIFF BODY FLUID [[id number]] Collected: 07/27/221029 Order Status: Completed Lab Status: Final result Updated: 07/27/22 154 Specimen: PLEURAL FLUID SOURCE (FLUID) PLEURAL FLUID FL WBC 144.450 x10'3/uL Comment: REFERENCE RANGE NOT ESTABLISHED FL RBC 0.090 x10'6/uL Comment: REFERENCE RANGE NOT ESTABLISHED DIFFERENTIAL MANUAL DIFFERENTIAL PERFORMED ON CONCENTRATED CYTOSPIN CELLS COUNTED 100 No COUNTED SEGS (FLUID) 97 % LYMPHS (FLUID) 3 % PROTEIN TOTAL FLUID [[id number]] Collected: 07/27/221029 Order Status: Completed Lab Status: Final result Updated: 07/27/221521 Specimen: PLEURAL FLUID PROTEIN (FLUID) 3.5 G/DL Comment: REFERENCE RANGE NOT ESTABLISHED FOR THIS BODY FLUID. SOURCE (FLUID) PLEURAL FLUID CULTURE, BODY FLUID W/ GRAM STAIN [[id number]] Collected: 07/27/221029 Order Status: Canceled Lab Status: No result Specimen: PLEURAL FLUID CULTURE, ANAEROBIC [[id number]] Collected: 07/27/221029 Order Status: Canceled Lab Status: No result Specimen: PLEURAL FLUID CULTURE, BODY FLUID W/ GRAM STAIN [[id number]] (Susceptibility) Collected: 07/27/221029 Order Status: Completed Lab [...] Sensitive TRIMETH-SULFAMETH. Resistant VANCOMYCIN Sensitive CULTURE, ANAEROBIC [[id number]] (Susceptibility) Collected: 07/27/22 1030 Order Status: Completed Lab Status: Final result Updated: 08/01/22 08 Specimen: SITE Spec. Description SITE: RT PLEURAL FLUID Special Requests: NO SPECIAL REQUEST Culture Result: -- FEW MICROAEROPHILIC STREPTOCOCCUS Susceptibility Microaerophilic streptococcus ARLEN (ETEST) CEFOTAXIME 0.023 Sensitive PENICILLIN G 0.008 Sensitive BLASTOMYCES AG MVISTA (TM), EIA [[id number]] Order Status: No result Lab Status: No result Specimen: BLOOD BLASTOMYCES AG MVISTA (TM), EIA [[id number]] Order Status: No result Lab Status: No result Specimen: URINE CORONAVIRUS (COVID 19) PCR - Asymptomatic patients, may be completed at physician discretion [[id number]] Collected: 07/25/222031 Order Status: Canceled Lab Status: No result Specimen: NASOPHARYNGEAL SWAB STREP PNEUMO AG URINE [[id number]] Collected: 07/25/222030 Order Status: Completed Lab Status: [...] Type URINE VOIDED MRSA PCR nares Screening [[id number]] Collected: 07/25/222030 Order Status: Canceled Lab Status: No result Specimen: NASAL CULTURE, BACTERIA, BLOOD [[id number]] Collected: 07/25/221416 Order Status: Completed Lab Status: Final result Updated: 07/30/222144 Specimen: BLOOD Spec. Description BLOOD Special Requests: NO SPECIAL REQUEST Culture Result: NO GROWTH 5 DAYS CULTURE, BACTERIA, BLOOD [[id number]] Collected: 07/25/22 141 Order Status: Completed Lab [...] with the following history as recorded in [facility]: Problem List Items Addressed This Visit None [...] ID LANRE WINTER MD 2:03 PM 08/06/2022 TOLOGIC SUPERVISOR * Adali Henry, TEST ANALYST - 08/06/2022 11:37 AM CST [facility] PULMONOLOGY??PROGRESS??NOTE [...] - Can follow with Dr. Pineda in [facility] after discharge ([phone]). Dr. Pineda will be in [place] 08/08 and 08/22. Patient will call clinic and see which days have an opening. - ID following for antibiotic management. ?? Thank you for the consult. We will sign off. Call back with questions or concerns. Adali Henry, CRESCENCIO 08/06/2022 SUBJECTIVE Patient doing well. Denies shortness [...] Patti Pineda MD at 08/06/2022 6:25 PM CRYPTOLOGIC SUPERVISOR TOLOGIC SUPERVISOR TOLOGIC SUPERVISOR TOLOGIC SUPERVISOR Associated attestation - Miriam, Patti Leon MD - 08/06/2022 6:25 PM CRYPTOLOGIC SUPERVISOR Seen by SECURITY SYSTEMS INSTALLER Has COPD, 50-pk year history smoking who [...] to participate in the care of Ray Noelle Phillips. Please let pharmacy know if we can be of further assistance. Maria Antonia Quiñones PharmD Phone number: [phone] 08/06/2022 10:45 AM TOLOGIC SUPERVISOR * Suzi Irby RN - 08/06/2022 10:24 AM CSTSummary: IDR 08/06/22 1003 Interdisciplinary Group Information Next Conference Date 08/07/22 Interdisciplinary Group Conference Team Members Present Physician;Case/Care management;Nursing (Dr. [facility]) Barriers to Discharge Barriers Not Medically ready Not Medically ready follow up planned d/c chest tube, waiting on ID final recs, home O2 eval, keep IMC TOLOGIC SUPERVISOR * Ross Blackburn MD - 08/06/2022 9:40 AM CST In bathroom cleaning up. No leak seen. Small output. Maybe a small effusion. Plan to remove chest tube. TOLOGIC SUPERVISOR * Anisa B Drainer, DIRECTOR BLOOD BANK - 08/06/2022 8:44 AM CST OT Treatment Discharge Recommendation: home with assistance Activity Recommendation for business applications analyst: Per nursing discretion, OT signing off. 08/06/22822 Therapy Visit OT Received On 08/06/22 Reason for admission Update: Pt had VATS with R decorication on 08/02 with R chest tube placement (CT to suction). Discussed with Ana MOYA who okayed literary writer proceed with POC. Pt is a [...] IV Home Living Home Living Comments Per charles, pt lives with in a 1 with no PRANAY. Pt has a walk in shower with shower chair, and gbs. Pt has a tall toilet with sink closeby. Pt has a 2ww, and cane but was notusing at home. Pt reports independence ZIPPER TRIMMER with ADLs, IADLS, and was driving. Pt [...] Name: Ray Phillips Primary Language of learner: [place] Patient was educated on precautions exercises transfers ADLs balance bed mobility equipment therapy plan safety energy conservation adaptive skills. Education was completed one to one this date. Preference of learning new concepts one to one Barriers to education this date were none. Response to education this date verbalized understanding. TOLOGIC SUPERVISOR * Maria Antonia Quiñones PharmD - 08/06/2022 8:22 AM CST Vancomycin [...] Consult per Dr. Srinath Quiñones, PharmD Phone: [phone] 08/06/2022 8:22 AM TOLOGIC SUPERVISOR * Lanre Winter MD - 08/05/2022 2:41 [...] Mood and affect normal. LABS: Recent Labs 08/03/22 0222 08/04/22 0234 08/05/22 0211 WBC 11.0* 8.5 6.6 HGB 9.2* 7.6* 7.0* HCT 28.9* 24.4* 22.0* MCV 101.8* 102.1* 101.4* PLT 216 178 185 RBC 2.84* 2.39* 2.17* Recent Labs 08/03/22 0222 08/04/22 0234 08/05/22 0211 ALT 13* 11* 8* AST 11* 11* [...] Procedure Component Value Units Date/Time CULTURE, ANAEROBIC [[id number]] Collected: 08/02/22837 Order Status: Completed Lab Status: Preliminary result Updated: 08/03/22 1524 Specimen: TISSUE from OTHER (type in comments) Spec. Description TISSUE: RT DECORTICATION TISU Special Requests: NO SPECIAL REQUEST Culture Result: -- NO ANAEROBES ISOLATED TO DATE CULTURE TB/AFB OTHER (TYPE IN COMMENTS) [[id number]] Collected: 08/02/22837 Order Status: Sent Lab Status: In process Updated: 08/02/22 1009 Specimen: TISSUE from OTHER (type in comments) CULTURE, FUNGUS [[id number]] Collected: 08/02/22837 Order Status: Sent Lab Status: In process Updated: 08/02/22 1010 Specimen: TISSUE from OTHER (type in comments) CULTURE, TISSUE W/GRAM STAIN [[id number]] Collected: 08/02/22837 Order Status: Completed Lab Status: Preliminary result Updated: 08/05/22 1202 Specimen: TISSUE from OTHER (type in comments) Spec. Description TISSUE: RT DECORTICATION TISU Special Requests: NO SPECIAL REQUEST Gram Stain Result -- MODERATE NEUTROPHILS SEEN Gram Stain Result NO ORGANISMS SEEN Culture Result: NO GROWTH 3 DAYS SMEAR,FLUOR STAIN,ACID FAST [[id number]] Collected: 08/02/22 0838 Order Status: No result Lab Status: In process Updated: 08/02/22 1012 CULTURE, FUNGUS [[id number]] Order Status: No result Lab Status: No result Specimen: BRONCHOALVEO LAV, RT LWR CULTURE TB/AFB OTHER (TYPE IN COMMENTS) [[id number]] Order Status: No result Lab Status: No result Specimen: BRONCHOALVEO LAV, RT LWR SMEAR,FLUOR STAIN,ACID FAST [[id number]] Order Status: No result Lab Status: No result Specimen: BRONCHOALVEO LAV, RT LWR CULTURE VIRAL RESPIRATORY RAPID [[id number]] Order Status: No result Lab Status: No result Specimen: BRONCHOALVEO LAV, RT LWR CULTURE RESPIRATORY W/ GRAM STAIN [[id number]] Order Status: No result Lab Status: No result Specimen: BRONCHIAL WASHING CULTURE, FUNGUS [[id number]] Order Status: No result Lab Status: No result Specimen: BRONCHIAL WASHING CULTURE TB/AFB OTHER (TYPE IN COMMENTS) [[id number]] Order Status: No result Lab Status: No result Specimen: BRONCHIAL WASHING SMEAR,FLUOR STAIN,ACID FAST [[id number]] Order Status: No result Lab Status: No result Specimen: BRONCHIAL WASHING CULTURE VIRAL RESPIRATORY RAPID [[id number]] Order Status: No result Lab Status: No result Specimen: BRONCHIAL WASHING CULTURE, QUANTITATIVE W/ GRAM STAIN [[id number]] Order Status: No result Lab Status: No result Specimen: BRONCHOALVEO LAV, RT LWR CULTURE, FUNGUS [[id number]] Collected: 07/30/22 1530 Order Status: No result Lab Status: In process Updated: 07/30/22 1701 CULTURE RESPIRATORY W/ GRAM STAIN [[id number]] Collected: 07/30/22 1530 Order Status: Completed Lab Status: Final result Updated: 08/03/22 1228 Specimen: SITE Spec. Description SITE: BRONCH WASH Special Requests: NO SPECIAL REQUEST Gram Stain Result -- MANY NEUTROPHILS SEEN Gram Stain Result NO ORGANISMS SEEN Culture Result: -- FEW TETE ALBICANS SMEAR,FLUOR STAIN,ACID FAST [[id number]] Collected: 07/30/221529 Order Status: Completed Lab Status: Final result Updated: 08/01/22 2318 ACID FAST SMEAR RESULT SEE NOTE 08/01/2022 11:18 PM Comment: Test Result Flag Unit RefValue Acid Fast Smear For Mycobacterium SOURCE: BRONCHIAL WASHING, BWASH/BAL MIX ACID FAST SMEAR FOR MYCOBACTERIUM FINAL Negative. Test Performed by: [place] [address] Paleontology Teacher: Brent Alcaraz M.D. Ph.D.; CLIA# [id number] CULTURE TB/AFB OTHER [[id number]] Collected: 07/30/221529 Order Status: No result Lab Status: In process Updated: 07/30/22 1704 CULTURE, QUANTITATIVE W/ GRAM STAIN [[id number]] Collected: 07/30/221529 Order Status: Completed Lab Status: Final result Updated: 08/02/22 145 Specimen: SITE Spec. Description SITE: BAL RLL Special Requests: NO SPECIAL REQUEST Gram Stain Result <10 NEUTROPHILS PER LPF Gram Stain Result <10 EPITHELIAL CELLS PER LPF Gram Stain Result -- RARE GRAM NEGATIVE RODS Culture Result: -- 500 CFU/ML YEAST , ID UPON REQUEST CULTURE, FUNGUS [[id number]] Collected: 07/30/221529 Order Status: Canceled Lab Status: No result SMEAR,FLUOR STAIN,ACID FAST [[id number]] Collected: 07/30/221529 Order Status: Canceled Lab Status: No result CULTURE TB/AFB OTHER [[id number]] Collected: 07/30/221529 Order Status: Canceled Lab Status: No result CULTURE CMV [[id number]] Collected: 07/30/221529 Order Status: No result Lab Status: In process Updated: 07/31/22 1431 CULTURE HERPES [[id number]] Collected: 07/30/221529 Order Status: Completed Lab Status: Final result Updated: 08/03/22 1542 HERPES SIMPLEX VIRUS CULTURE REPORT Comment: Herpes Simplex Virus Culture SOURCE : BAL/BWASH MIX IN RESULT Not Isolated Reference Range: Not Isolated Test Performed by [email or web address], [facility], [address] [place] [address] Adrián Balderas M.D., Ph.D., Director of Laboratories , [place] [id number] Specimen Type BAL/BWASH MIX IN VTM 1 TO 1 RATIO, FRZ NEG 70 CULTURE VIRAL RESPIRATORY RAPID [[id number]] Collected: 07/30/22 1530 Order Status: No result Lab Status: In process Updated: 07/31/22 1435 CULTURE RESPIRATORY W/ GRAM STAIN [[id number]] Collected: 07/28/221424 Order Status: Completed Lab Status: [...] -- MODERATE PRESUMPTIVE TETE ALBICANS CULTURE, FUNGUS [[id number]] Collected: 07/28/221424 Order Status: Sent Lab Status: In process Updated: 07/31/22 1336 Specimen: SPUTUM, EXPECTORATED CULTURE TB/AFB OTHER (TYPE IN COMMENTS) [[id number]] Collected: 07/28/221424 Order Status: Canceled Lab Status: No result Specimen: SPUTUM, EXPECTORATED SMEAR,FLUOR STAIN,ACID FAST [[id number]] Collected: 07/28/221424 Order Status: No result Lab Status: In process Updated: 07/28/22 1612 HISTOPLASMA ANTIGEN [[id number]] Collected: 07/28/221423 Order Status: Sent Lab Status: No result Specimen: BLOOD HISTOPLASMA ANTIGEN [[id number]] Collected: 07/28/221423 Order Status: Canceled Lab Status: No result Specimen: BLOOD GLUCOSE, BODY FLUID [[id number]] Order Status: Canceled Lab Status: No result Specimen: PLEURAL FLUID PH BODY FLUID [[id number]] Order Status: Canceled Lab Status: No result Specimen: PLEURAL FLUID CULTURE, BODY FLUID W/ GRAM STAIN [[id number]] Order Status: Canceled Lab Status: No result Specimen: PLEURAL FLUID CULTURE, ANAEROBIC [[id number]] Order Status: Canceled Lab Status: No result Specimen: PLEURAL FLUID CULTURE, FUNGUS [[id number]] Order Status: Canceled Lab Status: No result Specimen: PLEURAL FLUID LDH BODY FLUID [[id number]] Collected: 07/27/221029 Order Status: Completed Lab Status: Final result Updated: 07/27/22 152 Specimen: PLEURAL FLUID FLUID LDH >4,000 UNITS/L Comment: REFERENCE RANGE NOT ESTABLISHED FOR THIS BODY FLUID. SOURCE (FLUID) PLEURAL FLUID CELL COUNT W/ DIFF BODY FLUID [[id number]] Collected: 07/27/221029 Order Status: Completed Lab Status: Final result Updated: 07/27/22 1545 Specimen: PLEURAL FLUID SOURCE (FLUID) PLEURAL FLUID FL WBC 144.450 x10'3/uL Comment: REFERENCE RANGE NOT ESTABLISHED FL RBC 0.090 x10'6/uL Comment: REFERENCE RANGE NOT ESTABLISHED DIFFERENTIAL MANUAL DIFFERENTIAL PERFORMED ON CONCENTRATED CYTOSPIN CELLS COUNTED 100 No COUNTED SEGS (FLUID) 97 % LYMPHS (FLUID) 3 % PROTEIN TOTAL FLUID [[id number]] Collected: 07/27/221029 Order Status: Completed Lab Status: Final result Updated: 07/27/221521 Specimen: PLEURAL FLUID PROTEIN (FLUID) 3.5 G/DL Comment: REFERENCE RANGE NOT ESTABLISHED FOR THIS BODY FLUID. SOURCE (FLUID) PLEURAL FLUID CULTURE, BODY FLUID W/ GRAM STAIN [[id number]] Collected: 07/27/221029 Order Status: Canceled Lab Status: No result Specimen: PLEURAL FLUID CULTURE, ANAEROBIC [[id number]] Collected: 07/27/221029 Order Status: Canceled Lab Status: No result Specimen: PLEURAL FLUID CULTURE, BODY FLUID W/ GRAM STAIN [[id number]] (Susceptibility) Collected: 07/27/221029 Order Status: Completed Lab [...] Sensitive TRIMETH-SULFAMETH. Resistant VANCOMYCIN Sensitive CULTURE, ANAEROBIC [[id number]] (Susceptibility) Collected: 07/27/22 1030 Order Status: Completed Lab Status: Final result Updated: 08/01/22 08 Specimen: SITE Spec. Description SITE: RT PLEURAL FLUID Special Requests: NO SPECIAL REQUEST Culture Result: -- FEW MICROAEROPHILIC STREPTOCOCCUS Susceptibility Microaerophilic streptococcus ARLEN (ETEST) CEFOTAXIME 0.023 Sensitive PENICILLIN G 0.008 Sensitive BLASTOMYCES AG MVISTA (TM), EIA [[id number]] Order Status: No result Lab Status: No result Specimen: BLOOD BLASTOMYCES AG MVISTA (TM), EIA [[id number]] Order Status: No result Lab Status: No result Specimen: URINE CORONAVIRUS (COVID 19) PCR - Asymptomatic patients, may be completed at physician discretion [[id number]] Collected: 07/25/222031 Order Status: Sent Lab Status: No result Specimen: NASOPHARYNGEAL SWAB STREP PNEUMO AG URINE [[id number]] Collected: 07/25/222030 Order Status: Completed Lab Status: [...] Type URINE VOIDED MRSA PCR nares Screening [[id number]] Collected: 07/25/222030 Order Status: Canceled Lab Status: No result Specimen: NASAL CULTURE, BACTERIA, BLOOD [[id number]] Collected: 07/25/221416 Order Status: Completed Lab Status: Final result Updated: 07/30/222144 Specimen: BLOOD Spec. Description BLOOD Special Requests: NO SPECIAL REQUEST Culture Result: NO GROWTH 5 DAYS CULTURE, BACTERIA, BLOOD [[id number]] Collected: 07/25/221415 Order Status: Completed Lab Status: [...] with the following history as recorded in [facility]: Problem List Items Addressed This Visit None [...] tomorrow LANRE WINTER MD 2:41 PM 08/05/2022 TOLOGIC SUPERVISOR * Karla M Yash, ZIPPER TRIMMER - 08/05/2022 12:19 PM CST PT Treatment Discharge Recommendation: home with assistance for IADL's Activity Recommendation for business applications analyst: defer to nursing-PT signing off 08/05/22 0850 Therapy Visit Ordering Provider Tracy Yo MD Subjective Upon entering room 742, patient was in supine and agreeable to therapy. Reason for admission Update: Pt had VATS with R decorication on 08/02 with R chest tube placement (CT to suction). Discussed with Ana MOYA who okayed literary writer proceed with POC. Pt is a [...] was notusing at home. Pt reports independence ZIPPER TRIMMER with ADLs, IADLS, and was driving. Pt [...] this date as patient demonstrates mod I [id number]. Wayne has met all acute PT goals [...] Name: Ray Phillips Primary Language of learner: [place] Irish Patient was educated on transfers balance therapy plan gait safety. Education was completed one to one verbal hands-on demonstration this date. Preference of learning new concepts one to one verbal hands-on demonstration Barriers to education this date were none. Response to education this date verbalized understanding. TOLOGIC SUPERVISOR * Patel Kelsey MD - 08/05/2022 11:31 [...] discharge. Can follow with Dr. Pineda in [facility] after discharge ([phone]). - ID following for antibiotics management. ?? [...] 110/63 119/71 Pulse: 85 64 65 Resp: 22 13 14 Temp: 100.6 ??F (38.1 ??C) 98 ??F [...] Recent Labs Lab 07/31/22 0941 08/01/22 0242 08/03/222 08/04/22 0234 08/05/22210 WBC 16.2* 11.1* 11.0* 8.5 [...] 0242 08/01/22 1131 08/03/22 0222 08/04/22 0234 08/05/22210 NA 137 140 138 136 137 136 [...] Katie Paula MD at 08/05/2022 1:52 PM CRYPTOLOGIC SUPERVISOR TOLOGIC SUPERVISOR TOLOGIC SUPERVISOR Associated attestation - Katie Paula MD - 08/05/2022 1:52 PM CRYPTOLOGIC SUPERVISOR DESTINI Pulmonary and Critical Care Medicine Attending [...] Brent Lemos MD at 08/05/2022 11:35 AM CRYPTOLOGIC SUPERVISOR TOLOGIC SUPERVISOR TOLOGIC SUPERVISOR * Ann Mcdonnell, PharmD - 08/05/2022 10:42 [...] Consult per Dr. Srinath MCDONNELL, PharmD Phone: [phone] 08/05/2022 10:42 AM TOLOGIC SUPERVISOR * Lanre Winter MD - 08/04/2022 3:33 [...] Procedure Component Value Units Date/Time CULTURE, ANAEROBIC [[id number]] Collected: 08/02/22837 Order Status: Completed Lab Status: Preliminary result Updated: 08/03/22 1524 Specimen: TISSUE from OTHER (type in comments) Spec. Description TISSUE: RT DECORTICATION TISU Special Requests: NO SPECIAL REQUEST Culture Result: -- NO ANAEROBES ISOLATED TO DATE CULTURE TB/AFB OTHER (TYPE IN COMMENTS) [[id number]] Collected: 08/02/22837 Order Status: Sent Lab Status: In process Updated: 08/02/22 1009 Specimen: TISSUE from OTHER (type in comments) CULTURE, FUNGUS [[id number]] Collected: 08/02/22837 Order Status: Sent Lab Status: In process Updated: 08/02/22 1010 Specimen: TISSUE from OTHER (type in comments) CULTURE, TISSUE W/GRAM STAIN [[id number]] Collected: 08/02/22837 Order Status: Completed Lab Status: Preliminary result Updated: 08/03/22 1525 Specimen: TISSUE from OTHER (type in comments) Spec. Description TISSUE: RT DECORTICATION TISU Special Requests: NO SPECIAL REQUEST Gram Stain Result -- MODERATE NEUTROPHILS SEEN Gram Stain Result NO ORGANISMS SEEN Culture Result: NO GROWTH 1 DAY SMEAR,FLUOR STAIN,ACID FAST [[id number]] Collected: 08/02/22837 Order Status: No result Lab Status: In process Updated: 08/02/22 1012 CULTURE, FUNGUS [[id number]] Order Status: No result Lab Status: No result Specimen: BRONCHOALVEO LAV, RT LWR CULTURE TB/AFB OTHER (TYPE IN COMMENTS) [[id number]] Order Status: No result Lab Status: No result Specimen: BRONCHOALVEO LAV, RT LWR SMEAR,FLUOR STAIN,ACID FAST [[id number]] Order Status: No result Lab Status: No result Specimen: BRONCHOALVEO LAV, RT LWR CULTURE VIRAL RESPIRATORY RAPID [[id number]] Order Status: No result Lab Status: No result Specimen: BRONCHOALVEO LAV, RT LWR CULTURE RESPIRATORY W/ GRAM STAIN [[id number]] Order Status: No result Lab Status: No result Specimen: BRONCHIAL WASHING CULTURE, FUNGUS [[id number]] Order Status: No result Lab Status: No result Specimen: BRONCHIAL WASHING CULTURE TB/AFB OTHER (TYPE IN COMMENTS) [[id number]] Order Status: No result Lab Status: No result Specimen: BRONCHIAL WASHING SMEAR,FLUOR STAIN,ACID FAST [[id number]] Order Status: No result Lab Status: No result Specimen: BRONCHIAL WASHING CULTURE VIRAL RESPIRATORY RAPID [[id number]] Order Status: No result Lab Status: No result Specimen: BRONCHIAL WASHING CULTURE, QUANTITATIVE W/ GRAM STAIN [[id number]] Order Status: No result Lab Status: No result Specimen: BRONCHOALVEO LAV, RT LWR CULTURE, FUNGUS [[id number]] Collected: 07/30/221529 Order Status: No result Lab Status: In process Updated: 07/30/22 1701 CULTURE RESPIRATORY W/ GRAM STAIN [[id number]] Collected: 07/30/221529 Order Status: Completed Lab Status: Final result Updated: 08/03/22 1228 Specimen: SITE Spec. Description SITE: BRONCH WASH Special Requests: NO SPECIAL REQUEST Gram Stain Result -- MANY NEUTROPHILS SEEN Gram Stain Result NO ORGANISMS SEEN Culture Result: -- FEW TETE ALBICANS SMEAR,FLUOR STAIN,ACID FAST [[id number]] Collected: 07/30/221529 Order Status: Completed Lab Status: Final result Updated: 08/01/22 2318 ACID FAST SMEAR RESULT SEE NOTE 08/01/2022 11:18 PM Comment: Test Result Flag Unit RefValue Acid Fast Smear For Mycobacterium SOURCE: BRONCHIAL WASHING, BWASH/BAL MIX ACID FAST SMEAR FOR MYCOBACTERIUM FINAL Negative. Test Performed by: [address] [address] Paleontology Teacher: Brent Alcaraz M.D. Ph.D.; CLIA# [id number] CULTURE TB/AFB OTHER [[id number]] Collected: 07/30/221529 Order Status: No result Lab Status: In process Updated: 07/30/22 1704 CULTURE, QUANTITATIVE W/ GRAM STAIN [[id number]] Collected: 07/30/221529 Order Status: Completed Lab Status: Final result Updated: 08/02/22 1457 Specimen: SITE Spec. Description SITE: BAL RLL Special Requests: NO SPECIAL REQUEST Gram Stain Result <10 NEUTROPHILS PER LPF Gram Stain Result <10 EPITHELIAL CELLS PER LPF Gram Stain Result -- RARE GRAM NEGATIVE RODS Culture Result: -- 500 CFU/ML YEAST , ID UPON REQUEST CULTURE, FUNGUS [[id number]] Collected: 07/30/221529 Order Status: Canceled Lab Status: No result SMEAR,FLUOR STAIN,ACID FAST [[id number]] Collected: 07/30/221529 Order Status: Canceled Lab Status: No result CULTURE TB/AFB OTHER [[id number]] Collected: 07/30/221529 Order Status: Canceled Lab Status: No result CULTURE CMV [[id number]] Collected: 07/30/221529 Order Status: No result Lab Status: In process Updated: 07/31/22 1431 CULTURE HERPES [[id number]] Collected: 07/30/221529 Order Status: Completed Lab Status: Final result Updated: 08/03/22 154 HERPES SIMPLEX VIRUS CULTURE REPORT Comment: Herpes Simplex Virus Culture SOURCE : BAL/BWASH MIX IN RESULT Not Isolated Reference Range: Not Isolated Test Per[facility] by [facility], [facility], [address] [place] [address] Adrián Balderas M.D., Ph.D., Director of Laboratories , [facility] [id number] Specimen Type BAL/BWASH MIX IN VTM 1 TO 1 RATIO, FRZ NEG 70 CULTURE VIRAL RESPIRATORY RAPID [[id number]] Collected: 07/30/221529 Order Status: No result Lab Status: In process Updated: 07/31/22 1435 CULTURE RESPIRATORY W/ GRAM STAIN [[id number]] Collected: 07/28/22 1425 Order Status: Completed Lab Status: Final result [...] -- MODERATE PRESUMPTIVE TETE ALBICANS CULTURE, FUNGUS [[id number]] Collected: 07/28/221424 Order Status: Sent Lab Status: In process Updated: 07/31/22 133 Specimen: SPUTUM, EXPECTORATED CULTURE TB/AFB OTHER (TYPE IN COMMENTS) [[id number]] Collected: 07/28/221424 Order Status: Sent Lab Status: No result Specimen: SPUTUM, EXPECTORATED SMEAR,FLUOR STAIN,ACID FAST [[id number]] Collected: 07/28/221424 Order Status: No result Lab Status: In process Updated: 07/28/22 161 HISTOPLASMA ANTIGEN [[id number]] Collected: 07/28/221423 Order Status: Sent Lab Status: No result Specimen: BLOOD HISTOPLASMA ANTIGEN [[id number]] Collected: 07/28/221423 Order Status: Canceled Lab Status: No result Specimen: BLOOD GLUCOSE, BODY FLUID [[id number]] Order Status: Canceled Lab Status: No result Specimen: PLEURAL FLUID PH BODY FLUID [[id number]] Order Status: Canceled Lab Status: No result Specimen: PLEURAL FLUID CULTURE, BODY FLUID W/ GRAM STAIN [[id number]] Order Status: Canceled Lab Status: No result Specimen: PLEURAL FLUID CULTURE, ANAEROBIC [[id number]] Order Status: Canceled Lab Status: No result Specimen: PLEURAL FLUID CULTURE, FUNGUS [[id number]] Order Status: Canceled Lab Status: No result Specimen: PLEURAL FLUID LDH BODY FLUID [[id number]] Collected: 07/27/22 103 Order Status: Completed Lab Status: Final result Updated: 07/27/22 152 Specimen: PLEURAL FLUID FLUID LDH >4,000 UNITS/L Comment: REFERENCE RANGE NOT ESTABLISHED FOR THIS BODY FLUID. SOURCE (FLUID) PLEURAL FLUID CELL COUNT W/ DIFF BODY FLUID [[id number]] Collected: 07/27/22 103 Order Status: Completed Lab Status: Final result Updated: 07/27/22 1545 Specimen: PLEURAL FLUID SOURCE (FLUID) PLEURAL FLUID FL WBC 144.450 x10'3/uL Comment: REFERENCE RANGE NOT ESTABLISHED FL RBC 0.090 x10'6/uL Comment: REFERENCE RANGE NOT ESTABLISHED DIFFERENTIAL MANUAL DIFFERENTIAL PERFORMED ON CONCENTRATED CYTOSPIN CELLS COUNTED 100 No COUNTED SEGS (FLUID) 97 % LYMPHS (FLUID) 3 % PROTEIN TOTAL FLUID [[id number]] Collected: 07/27/221029 Order Status: Completed Lab Status: Final result Updated: 07/27/22 1522 Specimen: PLEURAL FLUID PROTEIN (FLUID) 3.5 G/DL Comment: REFERENCE RANGE NOT ESTABLISHED FOR THIS BODY FLUID. SOURCE (FLUID) PLEURAL FLUID CULTURE, BODY FLUID W/ GRAM STAIN [[id number]] Collected: 07/27/221029 Order Status: Canceled Lab Status: No result Specimen: PLEURAL FLUID CULTURE, ANAEROBIC [[id number]] Collected: 07/27/221029 Order Status: Canceled Lab Status: No result Specimen: PLEURAL FLUID CULTURE, BODY FLUID W/ GRAM STAIN [[id number]] (Susceptibility) Collected: 07/27/221029 Order Status: Completed Lab [...] Sensitive TRIMETH-SULFAMETH. Resistant VANCOMYCIN Sensitive CULTURE, ANAEROBIC [[id number]] (Susceptibility) Collected: 07/27/221029 Order Status: Completed Lab Status: Final result Updated: 08/01/22 08 Specimen: SITE Spec. Description SITE: RT PLEURAL FLUID Special Requests: NO SPECIAL REQUEST Culture Result: -- FEW MICROAEROPHILIC STREPTOCOCCUS Susceptibility Microaerophilic streptococcus ARLEN (ETEST) CEFOTAXIME 0.023 Sensitive PENICILLIN G 0.008 Sensitive BLASTOMYCES AG MVISTA (TM), EIA [[id number]] Order Status: No result Lab Status: No result Specimen: BLOOD BLASTOMYCES AG MVISTA (TM), EIA [[id number]] Order Status: No result Lab Status: No result Specimen: URINE CORONAVIRUS (COVID 19) PCR - Asymptomatic patients, may be completed at physician discretion [[id number]] Collected: 07/25/222031 Order Status: Sent Lab Status: No result Specimen: NASOPHARYNGEAL SWAB STREP PNEUMO AG URINE [[id number]] Collected: 07/25/222030 Order Status: Completed Lab Status: [...] Type URINE VOIDED MRSA PCR nares Screening [[id number]] Collected: 07/25/222030 Order Status: Canceled Lab Status: No result Specimen: NASAL CULTURE, BACTERIA, BLOOD [[id number]] Collected: 07/25/221416 Order Status: Completed Lab Status: Final result Updated: 07/30/222144 Specimen: BLOOD Spec. Description BLOOD Special Requests: NO SPECIAL REQUEST Culture Result: NO GROWTH 5 DAYS CULTURE, BACTERIA, BLOOD [[id number]] Collected: 07/25/221415 Order Status: Completed Lab Status: [...] improvement LANRE WINTER MD 3:33 PM 08/04/2022 TOLOGIC SUPERVISOR * Ann Mcdonnell, PharmD - 08/04/2022 3:28 [...] Consult per Dr. Srinath MCDONNELL, PharmD Phone: [phone] 08/04/2022 3:28 PM TOLOGIC SUPERVISOR * Patel Kelsey MD - 08/04/2022 11:37 [...] with presumptive tete albicans ?? [facility] Pulmonology Plan/ Recommendations: -??S/p Chest tube placement [...] Katie Paula MD at 08/04/2022 1:46 PM CRYPTOLOGIC SUPERVISOR TOLOGIC SUPERVISOR TOLOGIC SUPERVISOR Associated attestation - Katie Paula MD - 08/04/2022 1:46 PM CRYPTOLOGIC SUPERVISOR DESTINI Pulmonary and Critical Care Medicine Attending [...] tube placement and TPA infusion by IR . S/p R VATS decortication on 08/02. - [...] Brent Lemos MD at 08/04/2022 12:55 PM CRYPTOLOGIC SUPERVISOR TOLOGIC SUPERVISOR TOLOGIC SUPERVISOR * SMITH Handley - 08/03/2022 4:38 PM CST OT Treatment Discharge Recommendation: home with assistance Activity Recommendation for business applications analyst: Up with gait belt x1 assist using 2 w/w to restroom, up in chair for every meal. 08/03/22 1418 Therapy Visit OT Received On 08/03/22 Reason for admission Update: Pt had VATS with R decorication on 08/02 with R chest tube placement (CT to suction). Discussed with Ana MOYA who okayed literary writer proceed with POC. Pt is a [...] O2 Home Living Home Living Comments Per charles, pt lives with in a 1 SH with no PRANAY. Pt has a walk in shower with shower chair, and gbs. Pt has a tall toilet with sink closeby. Pt has a 2ww, and cane but was notusing at home. Pt reports independence ZIPPER TRIMMER with ADLs, IADLS, and was driving. Pt reports he was noton home O2, and no falls. Subjective Subjective RN daysi's therapy session. Pt lying awake supine in [...] Pt stated he walked that way prior, literary writer discussed safety concerns. Other (Comment) Pt [...] Name: Ray Phillips Primary Language of learner: [place] Patient was educated on transfers ADLs balance therapy plan safety energy conservation. Education was completed one to one verbal this date. Preference of learning new concepts one to one verbal Barriers to education this date were fatigue. Response to education this date verbalized understanding verbalized recall asks questions demos with verbal cues needs reinforcement needs follow up needs assistance. TOLOGIC SUPERVISOR * Lanre Winter MD - 08/03/2022 3:18 [...] 246 216 RBC 2.58* 2.84* Recent Labs 08/01/222 08/01/22 1131 08/03/22221 ALT 14* -- 13* [...] Procedure Component Value Units Date/Time CULTURE, ANAEROBIC [[id number]] Collected: 08/02/22837 Order Status: Sent Lab Status: In process Updated: 08/02/22 1008 Specimen: TISSUE from OTHER (type in comments) CULTURE TB/AFB OTHER (TYPE IN COMMENTS) [[id number]] Collected: 08/02/22837 Order Status: Sent Lab Status: In process Updated: 08/02/22 1009 Specimen: TISSUE from OTHER (type in comments) CULTURE, FUNGUS [[id number]] Collected: 08/02/22837 Order Status: Sent Lab Status: In process Updated: 08/02/22 1010 Specimen: TISSUE from OTHER (type in comments) CULTURE, TISSUE W/GRAM STAIN [[id number]] Collected: 08/02/22837 Order Status: Completed Lab Status: Preliminary result Updated: 08/02/22 160 Specimen: TISSUE from OTHER (type in comments) Spec. Description TISSUE: RT DECORTICATION TISU Special Requests: NO SPECIAL REQUEST Follow-up of empyema hydropneumothorax result -- MODERATE NEUTROPHILS SEEN Gram Stain Result NO ORGANISMS SEEN Culture Result: PENDING SMEAR,FLUOR STAIN,ACID FAST [[id number]] Collected: 08/02/22837 Order Status: No result Lab Status: In process Updated: 08/02/22 1012 CULTURE, FUNGUS [[id number]] Order Status: No result Lab Status: No result Specimen: BRONCHOALVEO LAV, RT LWR CULTURE TB/AFB OTHER (TYPE IN COMMENTS) [[id number]] Order Status: No result Lab Status: No result Specimen: BRONCHOALVEO LAV, RT LWR SMEAR,FLUOR STAIN,ACID FAST [[id number]] Order Status: No result Lab Status: No result Specimen: BRONCHOALVEO LAV, RT LWR CULTURE VIRAL RESPIRATORY RAPID [[id number]] Order Status: No result Lab Status: No result Specimen: BRONCHOALVEO LAV, RT LWR CULTURE RESPIRATORY W/ GRAM STAIN [[id number]] Order Status: No result Lab Status: No result Specimen: BRONCHIAL WASHING CULTURE, FUNGUS [[id number]] Order Status: No result Lab Status: No result Specimen: BRONCHIAL WASHING CULTURE TB/AFB OTHER (TYPE IN COMMENTS) [[id number]] Order Status: No result Lab Status: No result Specimen: BRONCHIAL WASHING SMEAR,FLUOR STAIN,ACID FAST [[id number]] Order Status: No result Lab Status: No result Specimen: BRONCHIAL WASHING CULTURE VIRAL RESPIRATORY RAPID [[id number]] Order Status: No result Lab Status: No result Specimen: BRONCHIAL WASHING CULTURE, QUANTITATIVE W/ GRAM STAIN [[id number]] Order Status: No result Lab Status: No result Specimen: BRONCHOALVEO LAV, RT LWR CULTURE, FUNGUS [[id number]] Collected: 07/30/22 1530 Order Status: No result Lab Status: In process Updated: 07/30/22 1701 CULTURE RESPIRATORY W/ GRAM STAIN [[id number]] Collected: 07/30/221529 Order Status: Completed Lab Status: Final result Updated: 08/03/22 1228 Specimen: SITE Spec. Description SITE: BRONCH WASH Special Requests: NO SPECIAL REQUEST Gram Stain Result -- MANY NEUTROPHILS SEEN Gram Stain Result NO ORGANISMS SEEN Culture Result: -- FEW TETE ALBICANS SMEAR,FLUOR STAIN,ACID FAST [[id number]] Collected: 07/30/221529 Order Status: Completed Lab Status: Final result Updated: 08/01/22 2318 ACID FAST SMEAR RESULT SEE NOTE 08/01/2022 11:18 PM Comment: Test Result Flag Unit RefValue Acid Fast Smear For Mycobacterium SOURCE: BRONCHIAL WASHING, BWASH/BAL MIX ACID FAST SMEAR FOR MYCOBACTERIUM FINAL Negative. Test Performed by: [place] [address] Paleontology Teacher: Brent Alcaraz M.D. Ph.D.; CLIA# [id number] CULTURE TB/AFB OTHER [[id number]] Collected: 07/30/221529 Order Status: No result Lab Status: In process Updated: 07/30/22 170 CULTURE, QUANTITATIVE W/ GRAM STAIN [[id number]] Collected: 07/30/221529 Order Status: Completed Lab Status: Final result Updated: 08/02/22 1457 Specimen: SITE Spec. Description SITE: BAL RLL Special Requests: NO SPECIAL REQUEST Gram Stain Result <10 NEUTROPHILS PER LPF Gram Stain Result <10 EPITHELIAL CELLS PER LPF Gram Stain Result -- RARE GRAM NEGATIVE RODS Culture Result: -- 500 CFU/ML YEAST , ID UPON REQUEST CULTURE, FUNGUS [[id number]] Collected: 07/30/221529 Order Status: Canceled Lab Status: No result SMEAR,FLUOR STAIN,ACID FAST [[id number]] Collected: 07/30/221529 Order Status: Canceled Lab Status: No result CULTURE TB/AFB OTHER [[id number]] Collected: 07/30/221529 Order Status: Canceled Lab Status: No result CULTURE CMV [[id number]] Collected: 07/30/22 153 Order Status: No result Lab Status: In process Updated: 07/31/22 1431 CULTURE HERPES [[id number]] Collected: 07/30/22 153 Order Status: No result Lab Status: In process Updated: 07/31/22 143 CULTURE VIRAL RESPIRATORY RAPID [[id number]] Collected: 07/30/22 153 Order Status: No result Lab Status: In process Updated: 07/31/22 143 CULTURE RESPIRATORY W/ GRAM STAIN [[id number]] Collected: 07/28/221424 Order Status: Completed Lab Status: Final result Updated: 07/31/22 08 Specimen: SPUTUM, EXPECTORATED Spec. Description SPUTUM, EXPECTORATED [...] -- MODERATE PRESUMPTIVE TETE ALBICANS CULTURE, FUNGUS [[id number]] Collected: 07/28/221424 Order Status: Sent Lab Status: In process Updated: 07/31/221335 Specimen: SPUTUM, EXPECTORATED CULTURE TB/AFB OTHER (TYPE IN COMMENTS) [[id number]] Collected: 07/28/221424 Order Status: Sent Lab Status: No result Specimen: SPUTUM, EXPECTORATED SMEAR,FLUOR STAIN,ACID FAST [[id number]] Collected: 07/28/221424 Order Status: No result Lab Status: In process Updated: 07/28/22 161 HISTOPLASMA ANTIGEN [[id number]] Collected: 07/28/221423 Order Status: Sent Lab Status: No result Specimen: BLOOD HISTOPLASMA ANTIGEN [[id number]] Collected: 07/28/221423 Order Status: Canceled Lab Status: No result Specimen: BLOOD GLUCOSE, BODY FLUID [[id number]] Order Status: Canceled Lab Status: No result Specimen: PLEURAL FLUID PH BODY FLUID [[id number]] Order Status: Canceled Lab Status: No result Specimen: PLEURAL FLUID CULTURE, BODY FLUID W/ GRAM STAIN [[id number]] Order Status: Canceled Lab Status: No result Specimen: PLEURAL FLUID CULTURE, ANAEROBIC [[id number]] Order Status: Canceled Lab Status: No result Specimen: PLEURAL FLUID CULTURE, FUNGUS [[id number]] Order Status: Canceled Lab Status: No result Specimen: PLEURAL FLUID LDH BODY FLUID [[id number]] Collected: 07/27/221029 Order Status: Completed Lab Status: Final result Updated: 07/27/221521 Specimen: PLEURAL FLUID FLUID LDH >4,000 UNITS/L Comment: REFERENCE RANGE NOT ESTABLISHED FOR THIS BODY FLUID. SOURCE (FLUID) PLEURAL FLUID CELL COUNT W/ DIFF BODY FLUID [[id number]] Collected: 07/27/221029 Order Status: Completed Lab Status: Final result Updated: 07/27/22 154 Specimen: PLEURAL FLUID SOURCE (FLUID) PLEURAL FLUID FL WBC 144.450 x10'3/uL Comment: REFERENCE RANGE NOT ESTABLISHED FL RBC 0.090 x10'6/uL Comment: REFERENCE RANGE NOT ESTABLISHED DIFFERENTIAL MANUAL DIFFERENTIAL PERFORMED ON CONCENTRATED CYTOSPIN CELLS COUNTED 100 No COUNTED SEGS (FLUID) 97 % LYMPHS (FLUID) 3 % PROTEIN TOTAL FLUID [[id number]] Collected: 07/27/221029 Order Status: Completed Lab Status: Final result Updated: 07/27/221521 Specimen: PLEURAL FLUID PROTEIN (FLUID) 3.5 G/DL Comment: REFERENCE RANGE NOT ESTABLISHED FOR THIS BODY FLUID. SOURCE (FLUID) PLEURAL FLUID CULTURE, BODY FLUID W/ GRAM STAIN [[id number]] Collected: 07/27/221029 Order Status: Canceled Lab Status: No result Specimen: PLEURAL FLUID CULTURE, ANAEROBIC [[id number]] Collected: 07/27/221029 Order Status: Canceled Lab Status: No result Specimen: PLEURAL FLUID CULTURE, BODY FLUID W/ GRAM STAIN [[id number]] (Susceptibility) Collected: 07/27/221029 Order Status: Completed Lab [...] Sensitive TRIMETH-SULFAMETH. Resistant VANCOMYCIN Sensitive CULTURE, ANAEROBIC [[id number]] (Susceptibility) Collected: 07/27/22 1030 Order Status: Completed Lab Status: Final result Updated: 08/01/22 0826 Specimen: SITE Spec. Description SITE: RT PLEURAL FLUID Special Requests: NO SPECIAL REQUEST Culture Result: -- FEW MICROAEROPHILIC STREPTOCOCCUS Susceptibility Microaerophilic streptococcus ARLEN (ETEST) CEFOTAXIME 0.023 Sensitive PENICILLIN G 0.008 Sensitive BLASTOMYCES AG MVISTA (TM), EIA [[id number]] Order Status: No result Lab Status: No result Specimen: BLOOD BLASTOMYCES AG MVISTA (TM), EIA [[id number]] Order Status: No result Lab Status: No result Specimen: URINE CORONAVIRUS (COVID 19) PCR - Asymptomatic patients, may be completed at physician discretion [[id number]] Collected: 07/25/222031 Order Status: Sent Lab Status: No result Specimen: NASOPHARYNGEAL SWAB STREP PNEUMO AG URINE [[id number]] Collected: 07/25/222030 Order Status: Completed Lab Status: [...] Type URINE VOIDED MRSA PCR nares Screening [[id number]] Collected: 07/25/222030 Order Status: Canceled Lab Status: No result Specimen: NASAL CULTURE, BACTERIA, BLOOD [[id number]] Collected: 07/25/22 141 Order Status: Completed Lab Status: Final result Updated: 07/30/222144 Specimen: BLOOD Spec. Description BLOOD Special Requests: NO SPECIAL REQUEST Culture Result: NO GROWTH 5 DAYS CULTURE, BACTERIA, BLOOD [[id number]] Collected: 07/25/22 141 Order Status: Completed Lab [...] [facility] the [facility] Problem List Items Addressed This Visit None [...] improvement LANRE WINTER MD 3:18 PM 08/03/2022 TOLOGIC SUPERVISOR * Raquel Wetzel MD - 08/03/2022 2:55 [...] Ross Blackburn MD at 08/04/2022 8:14 AM CRYPTOLOGIC SUPERVISOR TOLOGIC SUPERVISOR TOLOGIC SUPERVISOR * Ford Tay - 08/03/2022 2:52 PM [...] Pharmacy Consult per Dr. Srinath Tay Phone: [phone] 08/03/2022 2:54 PM Cosigned by Maria Antonia Quiñones, PharmD at 08/03/2022 3:40 PM CRYPTOLOGIC SUPERVISOR TOLOGIC SUPERVISOR TOLOGIC SUPERVISOR * Zoila Farias MD - 08/03/2022 12:40 PM CSTSummary: DESTINI ID PROGRESS NOTE DESTINI INFECTIOUS DISEASE PROGRESS NOTE Attending Provider:Dr. Robbins PCP: JOE TAM DO Reason for Consultation: Loculated pleural effusions, Pneumonia ASSESSMENT AND PLAN Ray Phillips is a 67-year-old male with medical history of chronic tobacco use who was transferred from [facility] near [place] for treatment resistant pneumonia and loculated pleural [...] plan. Thank you for consulting [facility] Infectious Disease, we will continue to follow. Paulina Dale APRN [facility] Infectious Disease 08/03/2022 Teaching physician note: Infectious Diseases Attending Physician: Patient personally interviewed and examined. Chart reviewed. Vitals, pertinent labs and imaging reviewed. [facility] Infectious Disease resident/fellow note reviewed and findings [...] NG Antimicrobial Regimen Unknown Abx regiment at [facility] Vancomycin IV 1.25g every 24h(07/25 - present) Cefepime IV 2g every 12h(07/25 - present) Metronidazole 500mg q8h (07/30-) Azithromycin IV 500mg [...] Intravenous, See Admin Instructions, Tracy Yo MD TOLOGIC SUPERVISOR TOLOGIC SUPERVISOR TOLOGIC SUPERVISOR TOLOGIC SUPERVISOR * Adali Henry, [facility] - 08/03/2022 11:43 AM CST DESTINI [...] will continue to follow. ?? Adali Henry, TEST ANALYST 08/03/2022 SUBJECTIVE Patient doing well this morning, [...] 120/82 Pulse: 77 [phone] 78 Resp: 19 14 11 18 Temp: 100.1 ??F (37.8 ??C) 99 [...] Katie Paula MD at 08/03/2022 7:56 PM CRYPTOLOGIC SUPERVISOR TOLOGIC SUPERVISOR TOLOGIC SUPERVISOR Associated attestation - Katie Paula MD - 08/03/2022 7:56 PM CRYPTOLOGIC SUPERVISOR [facility] Pulmonary and Critical Care Medicine Attending [...] DME equipment recommendation: none Activity Recommendation for business applications analyst: up with 1, gaitbelt, chest tube to [...] suction). Discussed with Ana MOYA who okayed literary writer proceed with POC. Pt is a [...] was notusing at home. Pt reports independence [employer] with ADLs, IADLS, and was driving. Pt [...] RN entering to give pain meds as literary writer exiting room. Education: Primary Learners Name: Ray Phillips Primary Language of learner: [place] Patient Spouse was educated on exercises transfers balance bed mobility therapy plan safety. Education was completed one to one this date. Preference of learning new concepts one to one Barriers to education this date were pain fatigue. Response to education this date needs follow up. TOLOGIC SUPERVISOR * Estephania Long RN - 08/03/2022 8:35 AM CST 08/03/22 0835 Interdisciplinary Group Conference Team Members Present Physician;Case/Care management (Dr. Winter: [facility]) Barriers to Discharge Barriers Not Medically ready Not Medically ready [place] [facility] [place]: s/p Vats: Chest tube to suction Patient's plan is to dc to home,lives with significant other: May need home oxygen eval prior to dc. CM will continue to follow for safe dc planning/dc needs. TOLOGIC SUPERVISOR * Lanre Winter MD - 08/02/2022 3:34 [...] Procedure Component Value Units Date/Time CULTURE, ANAEROBIC [[id number]] Collected: 08/02/22837 Order Status: Sent Lab Status: In process Updated: 08/02/22 1008 Specimen: TISSUE from OTHER (type in comments) CULTURE TB/AFB OTHER (TYPE IN COMMENTS) [[id number]] Collected: 08/02/22837 Order Status: Sent Lab Status: In process Updated: 08/02/22 1009 Specimen: TISSUE from OTHER (type in comments) CULTURE, FUNGUS [[id number]] Collected: 08/02/22837 Order Status: Sent Lab Status: In process Updated: 08/02/22 1010 Specimen: TISSUE from OTHER (type in comments) CULTURE, TISSUE W/GRAM STAIN [[id number]] Collected: 08/02/22837 Order Status: Sent Lab Status: In process Updated: 08/02/22 1010 Specimen: TISSUE from OTHER (type in comments) SMEAR,FLUOR STAIN,ACID FAST [[id number]] Collected: 12/01/22 0838 Order Status: No result Lab Status: In process Updated: 08/02/22 1012 CULTURE, FUNGUS [[id number]] Order Status: No result Lab Status: No result Specimen: BRONCHOALVEO LAV, RT LWR CULTURE TB/AFB OTHER (TYPE IN COMMENTS) [[id number]] Order Status: No result Lab Status: No result Specimen: BRONCHOALVEO LAV, RT LWR SMEAR,FLUOR STAIN,ACID FAST [[id number]] Order Status: No result Lab Status: No result Specimen: BRONCHOALVEO LAV, RT LWR CULTURE VIRAL RESPIRATORY RAPID [[id number]] Order Status: No result Lab Status: No result Specimen: BRONCHOALVEO LAV, RT LWR CULTURE RESPIRATORY W/ GRAM STAIN [[id number]] Order Status: No result Lab Status: No result Specimen: BRONCHIAL WASHING CULTURE, FUNGUS [[id number]] Order Status: No result Lab Status: No result Specimen: BRONCHIAL WASHING CULTURE TB/AFB OTHER (TYPE IN COMMENTS) [[id number]] Order Status: No result Lab Status: No result Specimen: BRONCHIAL WASHING SMEAR,FLUOR STAIN,ACID FAST [[id number]] Order Status: No result Lab Status: No result Specimen: BRONCHIAL WASHING CULTURE VIRAL RESPIRATORY RAPID [[id number]] Order Status: No result Lab Status: No result Specimen: BRONCHIAL WASHING CULTURE, QUANTITATIVE W/ GRAM STAIN [[id number]] Order Status: No result Lab Status: No result Specimen: BRONCHOALVEO LAV, RT LWR CULTURE, FUNGUS [[id number]] Collected: 07/30/22 153 Order Status: No result Lab Status: In process Updated: 07/30/22 1701 CULTURE RESPIRATORY W/ GRAM STAIN [[id number]] Collected: 07/30/22 153 Order Status: Completed Lab Status: Preliminary result Updated: 08/01/22 1519 Specimen: SITE Spec. Description SITE: BRONCH WASH Special Requests: NO SPECIAL REQUEST Gram Stain Result -- MANY NEUTROPHILS SEEN Gram Stain Result NO ORGANISMS SEEN Culture Result: -- FEW YEAST . FURTHER ID TO FOLLOW. SMEAR,FLUOR STAIN,ACID FAST [[id number]] Collected: 07/30/22 1530 Order Status: Completed Lab Status: Final result Updated: 08/01/22 2315 ACID FAST SMEAR RESULT SEE NOTE 08/01/2022 11:18 PM Comment: Test Result Flag Unit RefValue Acid Fast Smear For Mycobacterium SOURCE: BRONCHIAL WASHING, BWASH/BAL MIX ACID FAST SMEAR FOR MYCOBACTERIUM FINAL Negative. Test Performed by: [facility] - [address] [address] Paleontology Teacher: Brent Alcaraz M.D. Ph.D.; CLIA# [id number] CULTURE TB/AFB OTHER [[id number]] Collected: 07/30/221529 Order Status: No result Lab Status: In process Updated: 07/30/22 170 CULTURE, QUANTITATIVE W/ GRAM STAIN [[id number]] Collected: 07/30/221529 Order Status: Completed Lab Status: Final result Updated: 08/02/22 145 Specimen: SITE Spec. Description SITE: BAL RLL Special Requests: NO SPECIAL REQUEST Gram Stain Result <10 NEUTROPHILS PER LPF Gram Stain Result <10 EPITHELIAL CELLS PER LPF Gram Stain Result -- RARE GRAM NEGATIVE RODS Culture Result: -- 500 CFU/ML YEAST , ID UPON REQUEST CULTURE, FUNGUS [[id number]] Collected: 07/30/221529 Order Status: Canceled Lab Status: No result SMEAR,FLUOR STAIN,ACID FAST [[id number]] Collected: 07/30/221529 Order Status: Canceled Lab Status: No result CULTURE TB/AFB OTHER [[id number]] Collected: 07/30/221529 Order Status: Canceled Lab Status: No result CULTURE CMV [[id number]] Collected: 07/30/221529 Order Status: No result Lab Status: In process Updated: 07/31/22 1431 CULTURE HERPES [[id number]] Collected: 07/30/221529 Order Status: No result Lab Status: In process Updated: 07/31/22 143 CULTURE VIRAL RESPIRATORY RAPID [[id number]] Collected: 07/30/221529 Order Status: No result Lab Status: In process Updated: 07/31/22 143 CULTURE RESPIRATORY W/ GRAM STAIN [[id number]] Collected: 07/28/22 142 Order Status: Completed Lab Status: Final result Updated: 07/31/22 0864 Specimen: SPUTUM, EXPECTORATED Spec. Description SPUTUM, EXPECTORATED [...] -- MODERATE PRESUMPTIVE TETE ALBICANS CULTURE, FUNGUS [[id number]] Collected: 07/28/221424 Order Status: Sent Lab Status: In process Updated: 07/31/22 133 Specimen: SPUTUM, EXPECTORATED CULTURE TB/AFB OTHER (TYPE IN COMMENTS) [[id number]] Collected: 07/28/221424 Order Status: Sent Lab Status: No result Specimen: SPUTUM, EXPECTORATED SMEAR,FLUOR STAIN,ACID FAST [[id number]] Collected: 07/28/221424 Order Status: No result Lab Status: In process Updated: 07/28/22 1612 HISTOPLASMA ANTIGEN [[id number]] Collected: 07/28/221423 Order Status: Sent Lab Status: No result Specimen: BLOOD HISTOPLASMA ANTIGEN [[id number]] Collected: 07/28/221423 Order Status: Canceled Lab Status: No result Specimen: BLOOD GLUCOSE, BODY FLUID [[id number]] Order Status: Canceled Lab Status: No result Specimen: PLEURAL FLUID PH BODY FLUID [[id number]] Order Status: Canceled Lab Status: No result Specimen: PLEURAL FLUID CULTURE, BODY FLUID W/ GRAM STAIN [[id number]] Order Status: Canceled Lab Status: No result Specimen: PLEURAL FLUID CULTURE, ANAEROBIC [[id number]] Order Status: Canceled Lab Status: No result Specimen: PLEURAL FLUID CULTURE, FUNGUS [[id number]] Order Status: Canceled Lab Status: No result Specimen: PLEURAL FLUID LDH BODY FLUID [[id number]] Collected: 07/27/22 103 Order Status: Completed Lab Status: Final result Updated: 07/27/221521 Specimen: PLEURAL FLUID FLUID LDH >4,000 UNITS/L Comment: REFERENCE RANGE NOT ESTABLISHED FOR THIS BODY FLUID. SOURCE (FLUID) PLEURAL FLUID CELL COUNT W/ DIFF BODY FLUID [[id number]] Collected: 07/27/221029 Order Status: Completed Lab Status: Final result Updated: 07/27/22 1545 Specimen: PLEURAL FLUID SOURCE (FLUID) PLEURAL FLUID FL WBC 144.450 x10'3/uL Comment: REFERENCE RANGE NOT ESTABLISHED FL RBC 0.090 x10'6/uL Comment: REFERENCE RANGE NOT ESTABLISHED DIFFERENTIAL MANUAL DIFFERENTIAL PERFORMED ON CONCENTRATED CYTOSPIN CELLS COUNTED 100 No COUNTED SEGS (FLUID) 97 % LYMPHS (FLUID) 3 % PROTEIN TOTAL FLUID [[id number]] Collected: 07/27/221029 Order Status: Completed Lab Status: Final result Updated: 07/27/22 152 Specimen: PLEURAL FLUID PROTEIN (FLUID) 3.5 G/DL Comment: REFERENCE RANGE NOT ESTABLISHED FOR THIS BODY FLUID. SOURCE (FLUID) PLEURAL FLUID CULTURE, BODY FLUID W/ GRAM STAIN [[id number]] Collected: 07/27/221029 Order Status: Canceled Lab Status: No result Specimen: PLEURAL FLUID CULTURE, ANAEROBIC [[id number]] Collected: 07/27/221029 Order Status: Canceled Lab Status: No result Specimen: PLEURAL FLUID CULTURE, BODY FLUID W/ GRAM STAIN [[id number]] (Susceptibility) Collected: 07/27/221029 Order Status: Completed Lab [...] Sensitive TRIMETH-SULFAMETH. Resistant VANCOMYCIN Sensitive CULTURE, ANAEROBIC [[id number]] (Susceptibility) Collected: 07/27/221029 Order Status: Completed Lab Status: Final result Updated: 08/01/22 0826 Specimen: SITE Spec. Description SITE: RT PLEURAL FLUID Special Requests: NO SPECIAL REQUEST Culture Result: -- FEW MICROAEROPHILIC STREPTOCOCCUS Susceptibility Microaerophilic streptococcus ARLEN (ETEST) CEFOTAXIME 0.023 Sensitive PENICILLIN G 0.008 Sensitive BLASTOMYCES AG MVISTA (TM), EIA [[id number]] Order Status: No result Lab Status: No result Specimen: BLOOD BLASTOMYCES AG MVISTA (TM), EIA [[id number]] Order Status: No result Lab Status: No result Specimen: URINE CORONAVIRUS (COVID 19) PCR - Asymptomatic patients, may be completed at physician discretion [[id number]] Collected: 07/25/222031 Order Status: Sent Lab Status: No result Specimen: NASOPHARYNGEAL SWAB STREP PNEUMO AG URINE [[id number]] Collected: 07/25/222030 Order Status: Completed Lab Status: [...] Type URINE VOIDED MRSA PCR nares Screening [[id number]] Collected: 07/25/222030 Order Status: Canceled Lab Status: No result Specimen: NASAL CULTURE, BACTERIA, BLOOD [[id number]] Collected: 07/25/221416 Order Status: Completed Lab Status: Final result Updated: 07/30/222144 Specimen: BLOOD Spec. Description BLOOD Special Requests: NO SPECIAL REQUEST Culture Result: NO GROWTH 5 DAYS CULTURE, BACTERIA, BLOOD [[id number]] Collected: 07/25/221415 Order Status: Completed Lab Status: [...] ondansetron, senna-docusate, sodium chloride ASSESSMENT /PLAN Ray E Jacqueline is a 67-year-old male with the following history as recorded in [facility]: Problem List Items Addressed This Visit None [...] improvement LANRE WINTER MD 3:34 PM 08/02/2022 TOLOGIC SUPERVISOR * Adali Henry, TEST ANALYST - 08/02/2022 12:50 PM CST [facility] PULMONOLOGY??PROGRESS??NOTE ?? Reason for Admission:?Respiratory failure ([facility]) ?? Reason for Consult:??Respiratory failure, necrotizing pneumonia,??possible loculated??effusion??- empyema or abscess vs bronchopleural fistula ? ASSESSMENT/PLAN Ray Phililps??is a 67-year-old??male, with history of??chronic back pain,??50-pk [...] will continue to follow. ?? Adali Henry, TEST ANALYST 08/02/2022 SUBJECTIVE Patient wondering when his surgery [...] 1. Unchanged bibasilar opacities. Ordered By: EDVIN D NYOBINDA Interpreted By: Atilio Read MD, 08/02/2022 10:55 AM Cosigned by Katie Paula MD at 08/02/2022 7:52 PM CRYPTOLOGIC SUPERVISOR TOLOGIC SUPERVISOR TOLOGIC SUPERVISOR Associated attestation - Katie Paula MD - 08/02/2022 7:52 PM CRYPTOLOGIC SUPERVISOR DE[facility]INI Pulmonary and Critical Care Medicine Attending [...] Pharmacy Consult per Dr. Srinath Tay Phone: [phone] 08/02/2022 11:56 AM Cosigned by Maria Antonia Quiñones PharmD at 08/02/2022 3:49 PM CRYPTOLOGIC SUPERVISOR TOLOGIC SUPERVISOR TOLOGIC SUPERVISOR TOLOGIC SUPERVISOR TOLOGIC SUPERVISOR * Angela Dawkins RN - 08/02/2022 8:55 AM CSTSummary: D/C plans IDBR done with Dr Maggy HARRIS MD to discuss POC/D/C plans. See notes below. 08/02/22 1550 Interdisciplinary Group Conference Team Members Present Case/Care management;Physician Barriers to Discharge Barriers Not Medically ready Not Medically ready follow up Pt to have VATS today. Continue IMC status. TOLOGIC SUPERVISOR * Lanre Winter MD - 08/01/2022 2:57 [...] Procedure Component Value Units Date/Time CULTURE, FUNGUS [[id number]] Order Status: No result Lab Status: No result Specimen: BRONCHOALVEO LAV, RT LWR CULTURE TB/AFB OTHER (TYPE IN COMMENTS) [[id number]] Order Status: No result Lab Status: No result Specimen: BRONCHOALVEO LAV, RT LWR SMEAR,FLUOR STAIN,ACID FAST [[id number]] Order Status: No result Lab Status: No result Specimen: BRONCHOALVEO LAV, RT LWR CULTURE VIRAL RESPIRATORY RAPID [[id number]] Order Status: No result Lab Status: No result Specimen: BRONCHOALVEO LAV, RT LWR CULTURE RESPIRATORY W/ GRAM STAIN [[id number]] Order Status: No result Lab Status: No result Specimen: BRONCHIAL WASHING CULTURE, FUNGUS [[id number]] Order Status: No result Lab Status: No result Specimen: BRONCHIAL WASHING CULTURE TB/AFB OTHER (TYPE IN COMMENTS) [[id number]] Order Status: No result Lab Status: No result Specimen: BRONCHIAL WASHING SMEAR,FLUOR STAIN,ACID FAST [[id number]] Order Status: No result Lab Status: No result Specimen: BRONCHIAL WASHING CULTURE VIRAL RESPIRATORY RAPID [[id number]] Order Status: No result Lab Status: No result Specimen: BRONCHIAL WASHING CULTURE, QUANTITATIVE W/ GRAM STAIN [[id number]] Order Status: No result Lab Status: No result Specimen: BRONCHOALVEO LAV, RT LWR CULTURE, FUNGUS [[id number]] Collected: 07/30/221529 Order Status: No result Lab Status: In process Updated: 07/30/22 170 CULTURE RESPIRATORY W/ GRAM STAIN [[id number]] Collected: 07/30/221529 Order Status: Completed Lab Status: Preliminary result Updated: 07/31/22 155 Specimen: SITE Spec. Description SITE: BRONCH WASH Special Requests: NO SPECIAL REQUEST Gram Stain Result -- MANY NEUTROPHILS SEEN Gram Stain Result NO ORGANISMS SEEN Culture Result: -- FEW YEAST , ID UPON REQUEST SMEAR,FLUOR STAIN,ACID FAST [[id number]] Collected: 07/30/221529 Order Status: No result Lab Status: In process Updated: 07/30/221702 CULTURE TB/AFB OTHER [[id number]] Collected: 07/30/221529 Order Status: No result Lab Status: In process Updated: 07/30/221703 CULTURE, QUANTITATIVE W/ GRAM STAIN [[id number]] Collected: 07/30/221529 Order Status: Completed Lab Status: Preliminary result Updated: 07/31/221557 Specimen: SITE Spec. Description SITE: BAL RLL Special Requests: NO SPECIAL REQUEST Gram Stain Result <10 NEUTROPHILS PER LPF Gram Stain Result <10 EPITHELIAL CELLS PER LPF Gram Stain Result -- RARE GRAM NEGATIVE RODS Culture Result: NO GROWTH 1 DAY CULTURE, FUNGUS [[id number]] Collected: 07/30/221529 Order Status: Canceled Lab Status: No result SMEAR,FLUOR STAIN,ACID FAST [[id number]] Collected: 07/30/221529 Order Status: Canceled Lab Status: No result CULTURE TB/AFB OTHER [[id number]] Collected: 07/30/221529 Order Status: Canceled Lab Status: No result CULTURE CMV [[id number]] Collected: 07/30/221529 Order Status: No result Lab Status: In process Updated: 07/31/22 1431 CULTURE HERPES [[id number]] Collected: 07/30/221529 Order Status: No result Lab Status: In process Updated: 07/31/22 1432 CULTURE VIRAL RESPIRATORY RAPID [[id number]] Collected: 07/30/221529 Order Status: No result Lab Status: In process Updated: 07/31/22 1435 CULTURE RESPIRATORY W/ GRAM STAIN [[id number]] Collected: 07/28/221424 Order Status: Completed Lab Status: [...] -- MODERATE PRESUMPTIVE TETE ALBICANS CULTURE, FUNGUS [[id number]] Collected: 07/28/221424 Order Status: Sent Lab Status: In process Updated: 07/31/221335 Specimen: SPUTUM, EXPECTORATED CULTURE TB/AFB OTHER (TYPE IN COMMENTS) [[id number]] Collected: 07/28/221424 Order Status: Sent Lab Status: No result Specimen: SPUTUM, EXPECTORATED SMEAR,FLUOR STAIN,ACID FAST [[id number]] Collected: 07/28/221424 Order Status: No result Lab Status: In process Updated: 07/28/22 1612 HISTOPLASMA ANTIGEN [[id number]] Collected: 07/28/221423 Order Status: Sent Lab Status: No result Specimen: BLOOD HISTOPLASMA ANTIGEN [[id number]] Collected: 07/28/221423 Order Status: Canceled Lab Status: No result Specimen: BLOOD GLUCOSE, BODY FLUID [[id number]] Order Status: Canceled Lab Status: No result Specimen: PLEURAL FLUID PH BODY FLUID [[id number]] Order Status: Canceled Lab Status: No result Specimen: PLEURAL FLUID CULTURE, BODY FLUID W/ GRAM STAIN [[id number]] Order Status: Canceled Lab Status: No result Specimen: PLEURAL FLUID CULTURE, ANAEROBIC [[id number]] Order Status: Canceled Lab Status: No result Specimen: PLEURAL FLUID CULTURE, FUNGUS [[id number]] Order Status: Canceled Lab Status: No result Specimen: PLEURAL FLUID LDH BODY FLUID [[id number]] Collected: 07/27/22 1030 Order Status: Completed Lab Status: Final result Updated: 07/27/22 152 Specimen: PLEURAL FLUID FLUID LDH >4,000 UNITS/L Comment: REFERENCE RANGE NOT ESTABLISHED FOR THIS BODY FLUID. SOURCE (FLUID) PLEURAL FLUID CELL COUNT W/ DIFF BODY FLUID [[id number]] Collected: 07/27/221029 Order Status: Completed Lab Status: Final result Updated: 07/27/22 1545 Specimen: PLEURAL FLUID SOURCE (FLUID) PLEURAL FLUID FL WBC 144.450 x10'3/uL Comment: REFERENCE RANGE NOT ESTABLISHED FL RBC 0.090 x10'6/uL Comment: REFERENCE RANGE NOT ESTABLISHED DIFFERENTIAL MANUAL DIFFERENTIAL PERFORMED ON CONCENTRATED CYTOSPIN CELLS COUNTED 100 No COUNTED SEGS (FLUID) 97 % LYMPHS (FLUID) 3 % PROTEIN TOTAL FLUID [[id number]] Collected: 07/27/221029 Order Status: Completed Lab Status: Final result Updated: 07/27/22 152 Specimen: PLEURAL FLUID PROTEIN (FLUID) 3.5 G/DL Comment: REFERENCE RANGE NOT ESTABLISHED FOR THIS BODY FLUID. SOURCE (FLUID) PLEURAL FLUID CULTURE, BODY FLUID W/ GRAM STAIN [[id number]] Collected: 07/27/221029 Order Status: Canceled Lab Status: No result Specimen: PLEURAL FLUID CULTURE, ANAEROBIC [[id number]] Collected: 07/27/221029 Order Status: Canceled Lab Status: No result Specimen: PLEURAL FLUID CULTURE, BODY FLUID W/ GRAM STAIN [[id number]] (Susceptibility) Collected: 07/27/221029 Order Status: Completed Lab [...] Sensitive TRIMETH-SULFAMETH. Resistant VANCOMYCIN Sensitive CULTURE, ANAEROBIC [[id number]] (Susceptibility) Collected: 07/27/221029 Order Status: Completed Lab Status: Final result Updated: 08/01/22 0826 Specimen: SITE Spec. Description SITE: RT PLEURAL FLUID Special Requests: NO SPECIAL REQUEST Culture Result: -- FEW MICROAEROPHILIC STREPTOCOCCUS Susceptibility Microaerophilic streptococcus ARLEN (ETEST) CEFOTAXIME 0.023 Sensitive PENICILLIN G 0.008 Sensitive BLASTOMYCES AG MVISTA (TM), EIA [[id number]] Order Status: No result Lab Status: No result Specimen: BLOOD BLASTOMYCES AG MVISTA (TM), EIA [[id number]] Order Status: No result Lab Status: No result Specimen: URINE CORONAVIRUS (COVID 19) PCR - Asymptomatic patients, may be completed at physician discretion [[id number]] Collected: 07/25/222031 Order Status: Sent Lab Status: No result Specimen: NASOPHARYNGEAL SWAB STREP PNEUMO AG URINE [[id number]] Collected: 07/25/222030 Order Status: Completed Lab Status: [...] Type URINE VOIDED MRSA PCR nares Screening [[id number]] Collected: 07/25/222030 Order Status: Canceled Lab Status: No result Specimen: NASAL CULTURE, BACTERIA, BLOOD [[id number]] Collected: 07/25/221416 Order Status: Completed Lab Status: Final result Updated: 07/30/222144 Specimen: BLOOD Spec. Description BLOOD Special Requests: NO SPECIAL REQUEST Culture Result: NO GROWTH 5 DAYS CULTURE, BACTERIA, BLOOD [[id number]] Collected: 07/25/221415 Order Status: Completed Lab Status: [...] counselling LANRE WINTER MD 2:57 PM 08/01/2022 TOLOGIC SUPERVISOR * Dayami Robbins MD - 08/01/2022 2:48 PM CSTSummary: [facility] ID progress note [facility] INFECTIOUS DISEASE PROGRESS NOTE Attending Provider:Dr. Robbins PCP: JOE TAM DO Reason for Consultation: Loculated pleural effusions, Pneumonia ASSESSMENT AND PLAN Ray Phillips is a 67-year-old male with medical history of chronic tobacco use who was transferred from [facility] near [place] for treatment resistant pneumonia and loculated pleural [...] plan. Thank you for consulting [facility] Infectious Disease, we will continue to follow. Paulina Dale APRN [facility] Infectious Disease 08/01/2022 Teaching physician note: Infectious Diseases Attending Physician: Patient personally interviewed and examined. Labs and vitals reviewed. [facility] Infectious Disease mid-level provider's note reviewed and [...] NG Antimicrobial Regimen Unknown Abx regiment at [facility] Vancomycin IV 1.25g every 24h(07/25 - present) Cefepime IV 2g every 12h(07/25 - present) Metronidazole 500mg q8h (07/30-present) Azithromycin IV 500mg every 24 hours (07/25 -07/29) Drug Monitoring Filed Vitals: 07/31/22 2340 08/01/22 0450 08/01/22 0748 08/01/22 1154 BP: 117/75 133/73 118/69 120/70 Pulse: 72 63 70 75 Resp: 15 Temp: 98.6 ??F (37 ??C) 98.7 ??F [...] Med, Raul Osuna MD, 50 mcg at FLUoxetine (PROzac) capsule 20 mg, 20 mg, Oral, Daily, Tracy Yo MD, 20 mg at 08/01/22905 gabapentin (NEURONTIN) capsule 300 mg, 300 mg, [...] 8 mL at 07/27/22 1016 lidocaine-EPINEPHrine 2 %-1:873912 injection 20 mL, 20 mL, Intradermal, Once, Nery Patrick MD LORazepam (ATIVAN) tablet 1 mg, 1 mg, Oral, BID PRN, Tracy Yo MD, 1 mg at 08/01/22 0915 metroNIDAZOLE (FLAGYL) tablet 500 mg, 500 mg, Oral, 3 times per day, Paulina Dale, JONELLE, 500 mg at 08/01/22 1433 morphine (MSIR) tablet 30 mg, 30 mg, Oral, Q8H PRN, Tracy Yo MD, 30 mg at 08/01/22 1221 morphine [...] Intravenous, See Admin Instructions, Tracy Yo MD TOLOGIC SUPERVISOR TOLOGIC SUPERVISOR TOLOGIC SUPERVISOR TOLOGIC SUPERVISOR * Adali Henry, TEST ANALYST - 08/01/2022 11:14 AM CST [facility] PULMONOLOGY??PROGRESS??NOTE [...] 1255 07/27/22 0240 07/28/22 0703 07/31/22 0941 08/01/22241 WBC 17.6* -- -- 17.5* [...] 0238 07/27/22 0240 07/28/22 0703 07/31/22 1113 08/01/22241 NA 137 135* 138 137 137 140 [...] Katie Paula MD at 08/01/2022 7:49 PM CRYPTOLOGIC SUPERVISOR TOLOGIC SUPERVISOR TOLOGIC SUPERVISOR Associated attestation - Katie Paula MD - 08/01/2022 7:49 PM CRYPTOLOGIC SUPERVISOR [facility] Pulmonary and Critical Care Medicine Attending [...] Pharmacy Consult per Dr. Srinath Tay Phone: [phone] 08/01/2022 1:35 PM Cosigned by Maria Antonia Quiñones PharmD at 08/01/2022 3:38 PM CRYPTOLOGIC SUPERVISOR TOLOGIC SUPERVISOR TOLOGIC SUPERVISOR Associated attestation - Maria Antonia Quiñones PharmD - 08/01/2022 3:38 PM CRYPTOLOGIC SUPERVISOR Next LVL will be Saturday 12 AM will walk administration times back to approach goal of 0900/2099 dosing times to consolidate MAR RN actions. [...] VATS 08/02. Continue IMC status. CM following. TOLOGIC SUPERVISOR * Raquel Wetzel MD - 08/01/2022 6:56 [...] 8 mLat 07/27/22 1016 ??? lidocaine-EPINEPHrine 2 %-1:584160 injection 20 mL, 20 mL, Intradermal, Once, [...] Ross Blackburn MD at 08/02/2022 6:58 AM CRYPTOLOGIC SUPERVISOR TOLOGIC SUPERVISOR TOLOGIC SUPERVISOR * SMITH Handley - 07/31/2022 4:01 PM CST OT Treatment Discharge Recommendation: home with assistance Activity Recommendation for business applications analyst: Up with gait belt x1 assist using [...] was notusing at home. Pt reports independence [employer]IP[employer]MER with ADLs, IADLS, and was driving. Pt [...] Assistance Independent UE Dressing Deficit Setup;Thread RUE;Thread LUE;change over head;Pull around back;Pull down in back UE [...] Name: Ray Phillips Primary Language of learner: [place] Patient was educated on exercises transfers ADLs balance bed mobility therapy plan safety energy conservation. Education was completed one to one verbal this date. Preference of learning new concepts one to one verbal Barriers to education this date were fatigue. Response to education this date verbalized understanding verbalized recall asks questions demos with verbal cues demos adequately needs follow up needs assistance. TOLOGIC SUPERVISOR * Dayami Robbins MD - 07/31/2022 1:55 PM CSTSummary: [facility] ID PROGRESS NOTE [facility] INFECTIOUS DISEASE PROGRESS NOTE Attending Provider:Dr. Robbins PCP: JOE TAM DO Reason for Consultation: Loculated pleural effusions, Pneumonia ASSESSMENT AND PLAN Ray Phillips is a 67-year-old male with medical history of chronic tobacco use who was transferred from [facility] near [place] for treatment resistant pneumonia and loculated pleural [...] Possible COPD Anemia History of Asbestos exposure [facility] Infectious Disease Team Recommendations -Continue Vancomycin (per pharmacy dosing) for pleural fluid growing Staphylococcus Epidermidis -Continue Cefepime for BAL growing GNR pending speciation. -Continue Metronidazole PO 500 mg q 8h for concern for empyema/abscess on previous CT imaging. -Appreciate Pulmonology assistance. -Plan as above discussed with patient, all voiced questions/concerns addressed, voices agreement and understanding with plan. Thank you for consulting [facility] Infectious Disease, we will continue to follow. Paulina Dale APRN [facility] Infectious Disease 07/31/2022 Teaching physician note: Infectious Diseases Attending Physician: Patient personally interviewed and examined. Labs and vitals reviewed. [facility] Infectious Disease mid-level provider's note reviewed and [...] NG Antimicrobial Regimen Unknown Abx regiment at [facility] Vancomycin IV 1.25g every 24h(07/25 - present) Cefepime IV 2g every 12h(07/25 - ) [...] solution 3 mL, 3 mL, Nebulization, Q4H,Tracy oY MD, 3 mL at 07/31/22 1148 lidocaine (XYLOCAINE) 1 % injection SOLN, , , Code/Trauma/Sedation Med, Raul Osuna MD, 8 mL at 07/27/22 1016 lidocaine-EPINEPHrine 2 %-1:100329 injection 20 mL, 20 mL, Intradermal, Once, [...] Intravenous, See Admin Instructions, Tracy Yo MD TOLOGIC SUPERVISOR TOLOGIC SUPERVISOR TOLOGIC SUPERVISOR * Karla Berrios, ZIPPER TRIMMER - 07/31/2022 1:40 PM CST PT Treatment Discharge Recommendation: home with assistance Activity Recommendation for business applications analyst: up with 1, 2ww, gait belt 07/31/22 [...] was notusing at home. Pt reports independence ZIPPER TRIMMER with ADLs, IADLS, and was driving. Pt [...] Name: Ray Phillips Primary Language of learner: [place] Patient was educated on precautions transfers balance bed mobility therapy plan gait safety. Education was completed one to one verbal hands-on demonstration this date. Preference of learning new concepts one to one verbal hands-on demonstration Barriers to education this date were none. Response to education this date verbalized understanding. TOLOGIC SUPERVISOR * Patel Kelsey MD - 07/31/2022 12:43 PM CST [facility] PULMONOLOGY??PROGRESS??NOTE ?? Attending Provider:??Florencio Amaya MD PCP:??GRACILEA LEIGH MD? Reason for Admission:?Respiratory failure ([facility]) ?? Reason for Consult:??Respiratory failure, necrotizing pneumonia,??possible [...] with hospitalist who will contact IR [facility] regarding options. - Bronchoscopy completed on [...] 97/68 Pulse: 63 69 72 Resp: 13 13 Temp: 97.8 ??F (36.6 ??C) 98.2 [...] Katie Paula MD at 07/31/2022 4:44 PM CRYPTOLOGIC SUPERVISOR TOLOGIC SUPERVISOR TOLOGIC SUPERVISOR Associated attestation - Katie Paula MD - 07/31/2022 4:44 PM CRYPTOLOGIC SUPERVISOR [facility] Pulmonary and Critical Care Medicine Attending [...] Procedure Component Value Units Date/Time CULTURE, FUNGUS [[id number]] Order Status: No result Lab Status: No result Specimen: BRONCHOALVEO LAV, RT LWR CULTURE TB/AFB OTHER (TYPE IN COMMENTS) [[id number]] Order Status: No result Lab Status: No result Specimen: BRONCHOALVEO LAV, RT LWR SMEAR,FLUOR STAIN,ACID FAST [[id number]] Order Status: No result Lab Status: No result Specimen: BRONCHOALVEO LAV, RT LWR CULTURE VIRAL RESPIRATORY RAPID [[id number]] Order Status: No result Lab Status: No result Specimen: BRONCHOALVEO LAV, RT LWR CULTURE RESPIRATORY W/ GRAM STAIN [[id number]] Order Status: No result Lab Status: No result Specimen: BRONCHIAL WASHING CULTURE, FUNGUS [[id number]] Order Status: No result Lab Status: No result Specimen: BRONCHIAL WASHING CULTURE TB/AFB OTHER (TYPE IN COMMENTS) [[id number]] Order Status: No result Lab Status: No result Specimen: BRONCHIAL WASHING SMEAR,FLUOR STAIN,ACID FAST [[id number]] Order Status: No result Lab Status: No result Specimen: BRONCHIAL WASHING CULTURE VIRAL RESPIRATORY RAPID [[id number]] Order Status: No result Lab Status: No result Specimen: BRONCHIAL WASHING CULTURE, QUANTITATIVE W/ GRAM STAIN [[id number]] Order Status: No result Lab Status: No result Specimen: BRONCHOALVEO LAV, RT LWR CULTURE, FUNGUS [[id number]] Collected: 07/30/221529 Order Status: No result Lab Status: In process Updated: 07/30/22 170 CULTURE RESPIRATORY W/ GRAM STAIN [[id number]] Collected: 07/30/221529 Order Status: Completed Lab Status: Preliminary result Updated: 07/30/222016 Specimen: SITE Spec. Description SITE: BRONCH WASH Special Requests: NO SPECIAL REQUEST Gram Stain Result -- MANY NEUTROPHILS SEEN Gram Stain Result NO ORGANISMS SEEN Culture Result: PENDING SMEAR,FLUOR STAIN,ACID FAST [[id number]] Collected: 07/30/221529 Order Status: No result Lab Status: In process Updated: 07/30/22 170 CULTURE TB/AFB OTHER [[id number]] Collected: 07/30/221529 Order Status: No result Lab Status: In process Updated: 07/30/22 170 CULTURE, QUANTITATIVE W/ GRAM STAIN [[id number]] Collected: 07/30/221529 Order Status: Completed Lab Status: Preliminary result Updated: 07/31/22440 Specimen: SITE Spec. Description SITE: BAL RLL Special Requests: NO SPECIAL REQUEST Gram Stain Result <10 NEUTROPHILS PER LPF Gram Stain Result <10 EPITHELIAL CELLS PER LPF Gram Stain Result -- RARE GRAM NEGATIVE RODS Culture Result: PENDING CULTURE, FUNGUS [[id number]] Collected: 07/30/221529 Order Status: Canceled Lab Status: No result SMEAR,FLUOR STAIN,ACID FAST [[id number]] Collected: 07/30/221529 Order Status: Canceled Lab Status: No result CULTURE TB/AFB OTHER [[id number]] Collected: 07/30/221529 Order Status: Canceled Lab Status: No result CULTURE RESPIRATORY W/ GRAM STAIN [[id number]] Collected: 07/28/221424 Order Status: Completed Lab Status: Final result Updated: 07/31/22846 Specimen: SPUTUM, EXPECTORATED Spec. Description SPUTUM, EXPECTORATED [...] -- MODERATE PRESUMPTIVE TETE ALBICANS CULTURE, FUNGUS [[id number]] Collected: 07/28/221424 Order Status: Sent Lab Status: No result Specimen: SPUTUM, EXPECTORATED CULTURE TB/AFB OTHER (TYPE IN COMMENTS) [[id number]] Collected: 07/28/221424 Order Status: Sent Lab Status: No result Specimen: SPUTUM, EXPECTORATED SMEAR,FLUOR STAIN,ACID FAST [[id number]] Collected: 07/28/221424 Order Status: No result Lab Status: In process Updated: 07/28/22 161 HISTOPLASMA ANTIGEN [[id number]] Collected: 07/28/221423 Order Status: Sent Lab Status: No result Specimen: BLOOD HISTOPLASMA ANTIGEN [[id number]] Collected: 07/28/221423 Order Status: Canceled Lab Status: No result Specimen: BLOOD GLUCOSE, BODY FLUID [[id number]] Order Status: Sent Lab Status: No result Specimen: PLEURAL FLUID PH BODY FLUID [[id number]] Order Status: Sent Lab Status: No result Specimen: PLEURAL FLUID CULTURE, BODY FLUID W/ GRAM STAIN [[id number]] Order Status: Canceled Lab Status: No result Specimen: PLEURAL FLUID CULTURE, ANAEROBIC [[id number]] Order Status: Canceled Lab Status: No result Specimen: PLEURAL FLUID CULTURE, FUNGUS [[id number]] Order Status: Canceled Lab Status: No result Specimen: PLEURAL FLUID LDH BODY FLUID [[id number]] Collected: 07/27/221029 Order Status: Completed Lab Status: Final result Updated: 07/27/221521 Specimen: PLEURAL FLUID FLUID LDH >4,000 UNITS/L Comment: REFERENCE RANGE NOT ESTABLISHED FOR THIS BODY FLUID. SOURCE (FLUID) PLEURAL FLUID CELL COUNT W/ DIFF BODY FLUID [[id number]] Collected: 07/27/221029 Order Status: Completed Lab Status: Final result Updated: 07/27/221544 Specimen: PLEURAL FLUID SOURCE (FLUID) PLEURAL FLUID FL WBC 144.450 x10'3/uL Comment: REFERENCE RANGE NOT ESTABLISHED FL RBC 0.090 x10'6/uL Comment: REFERENCE RANGE NOT ESTABLISHED DIFFERENTIAL MANUAL DIFFERENTIAL PERFORMED ON CONCENTRATED CYTOSPIN CELLS COUNTED 100 No COUNTED SEGS (FLUID) 97 % LYMPHS (FLUID) 3 % PROTEIN TOTAL FLUID [[id number]] Collected: 07/27/221029 Order Status: Completed Lab Status: Final result Updated: 07/27/221521 Specimen: PLEURAL FLUID PROTEIN (FLUID) 3.5 G/DL Comment: REFERENCE RANGE NOT ESTABLISHED FOR THIS BODY FLUID. SOURCE (FLUID) PLEURAL FLUID CULTURE, BODY FLUID W/ GRAM STAIN [[id number]] Collected: 07/27/221029 Order Status: Canceled Lab Status: No result Specimen: PLEURAL FLUID CULTURE, ANAEROBIC [[id number]] Collected: 07/27/221029 Order Status: Canceled Lab Status: No result Specimen: PLEURAL FLUID CULTURE, BODY FLUID W/ GRAM STAIN [[id number]] (Susceptibility) Collected: 07/27/221029 Order Status: Completed Lab Status: Final result Updated: 07/31/22750 Specimen: PLEURAL FLUID Spec. Description PLEURAL FLUID: RT Special Requests: NO SPECIAL REQUEST Gram Stain Result -- MANY NEUTROPHILS SEEN Gram Stain Result NO ORGANISMS SEEN Culture Result: -- RARE STAPHYLOCOCCUS EPIDERMIDIS Susceptibility Staphylococcus epidermidis ARLEN (VITEK) CLINDAMYCIN Sensitive ERYTHROMYCIN Sensitive GENTAMICIN Sensitive OXACILLIN Sensitive PENICILLIN G Resistant RIFAMPIN Sensitive TETRACYCLINE Sensitive TRIMETH-SULFAMETH. Resistant VANCOMYCIN Sensitive CULTURE, ANAEROBIC [[id number]] Collected: 07/27/22 1030 Order Status: Completed Lab Status: Preliminary result Updated: 07/30/22 174 Specimen: SITE Spec. Description SITE: RT PLEURAL FLUID Special Requests: NO SPECIAL REQUEST Culture Result: -- FEW MICROAEROPHILIC STREPTOCOCCUS BLASTOMYCES AG MVISTA (TM), EIA [[id number]] Order Status: No result Lab Status: No result Specimen: BLOOD BLASTOMYCES AG MVISTA (TM), EIA [[id number]] Order Status: No result Lab Status: No result Specimen: URINE CORONAVIRUS (COVID 19) PCR - Asymptomatic patients, may be completed at physician discretion [[id number]] Collected: 07/25/222031 Order Status: Sent Lab Status: No result Specimen: NASOPHARYNGEAL SWAB STREP PNEUMO AG URINE [[id number]] Collected: 07/25/222030 Order Status: Completed Lab Status: [...] Type URINE VOIDED MRSA PCR nares Screening [[id number]] Collected: 07/25/222030 Order Status: Canceled Lab Status: No result Specimen: NASAL CULTURE, BACTERIA, BLOOD [[id number]] Collected: 07/25/22 1417 Order Status: Completed Lab Status: Final result Updated: 07/30/222144 Specimen: BLOOD Spec. Description BLOOD Special Requests: NO SPECIAL REQUEST Culture Result: NO GROWTH 5 DAYS CULTURE, BACTERIA, BLOOD [[id number]] Collected: 07/25/22 1416 Order Status: Completed Lab [...] [facility] the [facility] Problem List Items Addressed This Visit None [...] counselling LANRE WINTER MD 11:32 AM 07/31/2022 TOLOGIC SUPERVISOR * Estephania Long RN - 07/31/2022 9:09 AM CST 07/31/22908 Interdisciplinary Group Conference Team Members Present Physician;Case/Care management (Dr. Winter : [facility]) Barriers to Discharge Barriers Not Medically ready Not Medically ready [place] [facility] [place]: Chest tube: s/p bronch Pulm following TOLOGIC SUPERVISOR * Ford Tay - 07/31/2022 8:47 AM [...] Pharmacy Consult per Dr. Srinath Tay Phone: [phone] 07/31/2022 12:56 PM Cosigned by Maria Antonia Quiñones, PharmD at 07/31/2022 2:22 PM CRYPTOLOGIC SUPERVISOR TOLOGIC SUPERVISOR TOLOGIC SUPERVISOR TOLOGIC SUPERVISOR TOLOGIC SUPERVISOR * Raquel Wetzel MD - 07/31/2022 6:52 [...] 8 mLat 07/27/22 1016 ??? lidocaine-EPINEPHrine 2 %-1:184634 injection 20 mL, 20 mL, Intradermal, Once, [...] Ross Blackburn MD at 08/02/2022 6:57 AM CRYPTOLOGIC SUPERVISOR TOLOGIC SUPERVISOR TOLOGIC SUPERVISOR * Dayami Robbins MD - 07/30/2022 2:10 PM CSTSummary: [facility] ID CHART NOTE [facility] INFECTIOUS DISEASE CHART NOTE Reason for Consultation: [...] or concerns. Paulina Dale APRN [facility] Infectious Disease 07/30/2022 Teaching physician note: Infectious Diseases Attending Physician: Labs and vitals reviewed. [facility] Infectious Disease mid-level provider's note reviewed and findings verified. Case discussed with the Infectious Disease team TOLOGIC SUPERVISOR TOLOGIC SUPERVISOR TOLOGIC SUPERVISOR * Ford Tay - 07/30/2022 1:48 PM [...] Pharmacy Consult per Dr. Srinath Tay Phone: [phone] 07/30/2022 1:48 PM Cosigned by Maria Antonia Quiñones, PharmD at 07/31/2022 8:10 AM CRYPTOLOGIC SUPERVISOR TOLOGIC SUPERVISOR TOLOGIC SUPERVISOR TOLOGIC SUPERVISOR * Patel Kelsey MD - 07/30/2022 1:20 PM CST [facility] PULMONOLOGY??PROGRESS??NOTE ?? Attending Provider:??Florencio Amaya MD PCP:??GRACIELA LEIGH MD? Reason for Admission:?Respiratory failure ([facility]) ?? Reason for Consult:??Respiratory failure, necrotizing pneumonia,??possible [...] TPA/dornase per IR for loculations - Bronchoscopy insulation estimator for this afternoon, est 3:00pm, will follow [...] Danielle Avelar DO at 07/30/2022 9:55 PM CRYPTOLOGIC SUPERVISOR TOLOGIC SUPERVISOR TOLOGIC SUPERVISOR Associated attestation - Danielle Avelar DO - 07/30/2022 9:55 PM CRYPTOLOGIC SUPERVISOR [facility] Pulmonary/Critical Care Medicine Attending Note: I rounded with the animal cop and residents. I interviewed and examined the patient, reviewedthe recent radiology images and labs, including ABGs. I reviewed and discussed the resident's note and I agree with the interval history, physical examination, assessment, and plan. Please see below any additional findings: Sputum with GNR. Bronchoscopy performed today. Chest tube output decreasing, IR managing. We will continue to follow DANIELLE AVELAR DO * SMITH Brown - 07/30/2022 1:11 PM CST OT Treatment Discharge Recommendation: home with assistance DME equipment recommendation: TBD Activity Recommendation for business applications analyst: up for all meals in chair, commode [...] not using at home. Pt reports independence ZIPPER TRIMMER with ADLs, IADLS, and was driving. Pt [...] Name: Ray Phillips Primary Language of learner: [place] Patient was educated on precautions transfers ADLs balance bed mobility therapy plan safety. Education was completed one to one this date. Preference of learning new concepts one to one Barriers to education this date were none. Response to education this date needs follow up. TOLOGIC SUPERVISOR * Florencio Amaya MD - 07/30/2022 11:52 [...] BID Tracy Yo MD 300 mg at 07/30/22 1026 ??? HYDROcodone-acetaminophen (NORCO) 10-325 MG tablet 1 tablet 1 tablet Oral Q6H PRN Tracy oY MD 1 tablet at 07/30/22 0547 ??? influenza virus vaccine (QUAD) injection 0.5 mL 0.5 mL Intramuscular Once PRN Florencio Amaya MD ??? ipratropium-albuterol (DUONEB) 0.5-2.5 (3) MG/3ML nebulizer solution 3 mL 3 mL Nebulization [id number] Jennifer Yo MD 3 mL at 07/30/22 1120 ??? lidocaine (XYLOCAINE) 1 % injection SOLN Code/Trauma/Sedation Med Raul Osuna MD 8 mL at 07/27/22 1016 ??? lidocaine-EPINEPHrine 2 %-1:222034 injection 20 mL 20 mL Intradermal Once [...] [facility] ?? Pneumonia Acute hypoxic resp failure [...] high likelihood for decompensation. FLORENCIO AMAYA MD TOLOGIC SUPERVISOR * Angela Dawkins RN - 07/30/2022 10:05 AM CSTSummary: D/C plans IDBR done with Dr Beatrice HARRIS MD to discuss POC/D/C plans. See notes below. 07/30/22 1005 Interdisciplinary Group Conference Team Members Present Physician;Case/Care management Barriers to Discharge Barriers Not Medically ready Not Medically ready follow up Pt to continue IMC status-necrotizing pneumonia, chest tube, having Bronchoscopy today with cultues. CM following. PT/OT recs home with assist when able. CM following. TOLOGIC SUPERVISOR * Patel Kelsey MD - 07/29/2022 12:53 [...] Patti Pineda MD at 07/29/2022 1:05 PM CRYPTOLOGIC SUPERVISOR TOLOGIC SUPERVISOR TOLOGIC SUPERVISOR Associated attestation - Patti Pineda MD - 07/29/2022 1:05 PM CRYPTOLOGIC SUPERVISOR Kenisha Brizuela MD, I rounded with nurses, [...] Q24H Tracy Yo MD Stopped at 07/28/22 7265 ??? ceFEPIme (MAXIPIME) 2 g in sodium [...] nebulizer solution 3 mL 3 mL Nebulization [id number] Jennifer Yo MD 3 mL at 07/29/22 0832 ??? lidocaine (XYLOCAINE) 1 % injection SOLN Code/Trauma/Sedation Med Raul Osuna MD 8 mL at 07/27/22 1016 ??? lidocaine-EPINEPHrine 2 %-1:979372 injection 20 mL 20 mL Intradermal Once [...] 1 mg 1 mg Intravenous Q6H PRN Florenico Amaya MD 1 mg at 07/27/22 1519 [...] Electronically Signed By: Karine Sher MD on :23 AM Interpreted By: Karine Sher MD, 07/26/2022 [...] high likelihood for decompensation. FLORENCIO AMAYA MD TOLOGIC SUPERVISOR TOLOGIC SUPERVISOR * Alfred Hill, PharmD, [facility] - 07/29/2022 11:04 AM CST Vancomycin Pharmacokinetic [...] Pharmacy Consult per Dr. Srinath Hill, PharmD, [facility] Phone: [phone] 07/29/2022 11:04 AM TOLOGIC SUPERVISOR * Patel Kelsey MD - 07/28/2022 11:00 AM CST [facility] PULMONOLOGY PROGRESS NOTE ?? Attending Provider:??Florencio Amaya MD PCP:??GRACIELA LEIGH MD? Reason for Admission:?Respiratory failure ([facility]) ?? Reason for Consult:??Respiratory failure, necrotizing pneumonia,??possible [...] Ordered By: RODNEY NOLASCO Interpreted By: Can Kelin DO, 07/27/2022 4:42 PM 07/27/22 1313 USE ECHOCARDIOGRAM Final result 07/27/22 1120 IR MIDLINE PLACEMENT GREATER 3YR Final result Impression: Impression: Successful image guided left basilic vein inserted midline line venous catheter. Plan: 1. Left midline venous catheter okay for immediate use. 2. IR follow-up as needed. Thank you for allowing [facility] to assist in this patient's care! Ordered By: MOLINA JENNIFER YO Interpreted By: Reji Cantrell MD, 07/27/2022 [...] Patti Pineda MD at 07/28/2022 1:59 PM CRYPTOLOGIC SUPERVISOR TOLOGIC SUPERVISOR TOLOGIC SUPERVISOR Associated attestation - Patti Pineda MD - 07/28/2022 1:59 PM CRYPTOLOGIC SUPERVISOR Kenisha Brizuela MD, I rounded with RT, [...] nebulizer solution 3 mL 3 mL Nebulization [id number] Jennifer Yo MD 3 mL at 07/28/22 0811 ??? lidocaine (XYLOCAINE) 1 % injection SOLN Code/Trauma/Sedation Med Raul Osuna MD 8 mL at 07/27/22 1016 ??? lidocaine-EPINEPHrine 2 %-1:730399 injection 20 mL 20 mL Intradermal Once [...] Tracy Yo MD 30 mg at 07/27/22 0417 ??? morphine injection 1 mg 1 mg [...] Tracy Yo MD 100 mg at 07/27/22 2031 ??? vancomycin 1000 mg in NS 250 [...] Electronically Signed By: Karine Sher MD on :23 AM Interpreted By: Karine Sher MD, 07/26/2022 [...] high likelihood for decompensation. FLORENCIO AMAYA MD TOLOGIC SUPERVISOR * Alfred Hill, PharmD, [facility] - 07/28/2022 10:12 AM CST Vancomycin Pharmacokinetic [...] Pharmacy Consult per Dr. Srinath Hill, PharmD, [facility] Phone: [phone] 07/28/2022 10:12 AM TOLOGIC SUPERVISOR * Florencio Amaya MD - 07/27/2022 12:01 [...] Intravenous Q24H Tracy Yo MD Stopped at 07/26/225 ??? ceFEPIme (MAXIPIME) 2 g in sodium [...] nebulizer solution 3 mL 3 mL Nebulization [id number] Jennifer Yo MD 3 mL at 07/27/22 1142 ??? lidocaine (XYLOCAINE) 1 % injection SOLN Code/Trauma/Sedation Med Raul Osuna MD 8 mL at 07/27/22 1016 ??? lidocaine-EPINEPHrine 2 %-1:378667 injection 20 mL 20 mL Intradermal Once Nery Patrick MD ??? LORazepam (ATIVAN) tablet 1 mg 1 mg Oral BID PRN Tracy Yo MD 1 mg at 07/25/22 1659 ??? methylPREDNISolone sodium succinate (SOLU-Medrol) injection 62.5 mg 62.5 mg Intravenous Daily Patel Kelsey MD 62.5 mg at 07/27/22 0658 ??? [...] bedtime Tracy Yo MD 100 mg at 07/26/22 2034 ??? vancomycin pharmacy to dose placeholder Intravenous [...] Sher MD on 21:23 AM Interpreted By: Kairne Sher MD, 07/26/2022 12:56 AM XR CHEST [...] [facility] ?? Pneumonia Acute hypoxic resp failure [...] high likelihood for decompensation. FLORENCIO AMAYA MD TOLOGIC SUPERVISOR TOLOGIC SUPERVISOR * Patel Kelsey MD - 07/27/2022 11:41 AM CST [facility] PULMONOLOGY PROGRESS NOTE ?? Attending Provider: Florencio Amaya MD PCP: GRACIELA LEIGH MD ?? Reason for Admission: Respiratory failure ([facility]) ?? Reason for Consult: Respiratory failure, necrotizing [...] Instructions ??? sodium chloride 250 mL (07/27/22 6565) PRN: acetaminophen, albuterol sulfate HFA, cyclobenzaprine, fentaNYL, [...] Patti Pineda MD at 07/27/2022 3:23 PM CRYPTOLOGIC SUPERVISOR TOLOGIC SUPERVISOR TOLOGIC SUPERVISOR Associated attestation - Patti Pineda MD - 07/27/2022 3:23 PM CRYPTOLOGIC SUPERVISOR Kenisha Brizuela MD, I rounded with RT, [...] tube placement Interventional Radiologist: Dr. Raul Osuna Teachers Aide: RODNEY NOLASCO MD Anesthesia: IV conscious moderate [...] Raul Osuna MD at 07/27/2022 1:54 PM CRYPTOLOGIC SUPERVISOR TOLOGIC SUPERVISOR TOLOGIC SUPERVISOR TOLOGIC SUPERVISOR Associated attestation - Raul Osuna MD - 07/27/2022 1:54 PM CRYPTOLOGIC SUPERVISOR I was present during all critical and santos portions of the procedure(s) and immediately available [facility] the entire duration. See PA or [...] desires to proceed. RODNEY NOLASCO MD 07/27/2022 TOLOGIC SUPERVISOR * Angela Dawkins RN - 07/27/2022 9:40 [...] pt. CM following for safe D/C plans. TOLOGIC SUPERVISOR * Michaelle Nielsen MD - 07/27/2022 8:59 [...] culture as soon as possible. Will follow. TOLOGIC SUPERVISOR * Katelin Cuenca, OT - 07/27/2022 8:42 AM CSTSummary: OT EVAL OT Initial Evaluation Discharge Recommendation: home with assistance Activity Recommendation for business applications analyst: UP with 1 2ww 07/27/22 0600 Therapy Visit OT Received On [...] Inpatient OT Time Calculation OT Start Time 08 OT Stop Time 0842 OT Time Calculation (min) 15 min Precautions [...] not using at home. Pt reports independence ZIPPER TRIMMER with ADLs, IADLS, and was driving. Pt [...] session Pt reports independence as functional status ZIPPER TRIMMER. Pt presents with pain, SOB, weakness, decreased [...] functional transfers in room and bathroom with [place] in order to increase independence with functional transfers. Pt will increase standing activity balance using for 3-5 minutes with independence order to increase independence with ADLs, functional transfers, and leisure activities. Pt will perform all LB dressing using AE PRN including clothing retrieval with Modified [place] in order to increase independence with ADLs. Pt will brush teeth, wash face, brush hair, and wash hands standing at sink with [place] in order to increase independence with ADLs. Pt will perform all toileting tasks including clothing management with [place] in order to increase independence with functional transfers and ADLs. Pt will bathe whole body and wash hair seated on shower chair with Modified [place] in order to increase independence with ADLs. Pt will perform supine to sit and sit to supine bed mobility with [place] in order to increaseindependence with ADLs, transitional [...] use of techniques during functional activities with [place] in order to increase overall activity tolerance [...] Name: Ray Phillips Primary Language of learner: [place] Patient Spouse educated on precautions exercises transfers ADLs balance bed mobility equipment therapy plan gait safety. Education was completed one to one verbal hands-on this date. Preference of learning new concepts one to one verbal hands-on Barriers to education this date were pain fatigue. Response to education this date verbalized understanding needs follow up needs assistance. TOLOGIC SUPERVISOR * Maria Antonia Quiñones, PharmD - 07/27/2022 8:37 AM CST Vancomycin Pharmacokinetic [...] Consult per Dr. Srinath Quiñones, PharmD Phone: [phone] 07/27/2022 8:37 AM TOLOGIC SUPERVISOR TOLOGIC SUPERVISOR * Angela Dawkins RN - 07/27/2022 8:35 AM CSTSummary: D/C plans Met with pt and ex /emergency contact, Maite Eldridge at bedside to assess/discuss CM needs/safe D/C plans. PCP Dr Jany CUEVAS. Meds [facility] [place]. States he lives with emergency contact, Maite Eldridge in 1 story home with four steps in/out of home. States he had Pfizer COVID vaccines x2, booster x1. [facility] does not have any DME or extra [...] Dressing Assistance No Behavior Oriented;Cooperative Communication Talks;Understands [place] Socioeconomic Needs Caregiver Needed No At Risk [...] Patient expects to be discharged to: Home TOLOGIC SUPERVISOR * Charly Morillo, PT - 07/27/2022 8:27 AM CST PT Initial Evaluation Discharge Recommendation: home with assistance Activity Recommendation for business applications analyst: Up with 1 GB 07/27/22 1200 Therapy Visit Ordering Provider [...] not using at home. Pt reports independence ZIPPER TRIMMER with ADLs, IADLS, and was driving. Pt [...] perform supine to/from sitting at EOB with [place] to improve mobility. Pt. will be able to perform sit to/from standing with modified independence using wheeled walker toimprove independence. Pt. will be able to ambulate 300 feet with Modified [place] using wheeled walker to help improve strength and functional independence. Pt. will be able to maintain dynamic sitting balance on soft surface with [place] to improve functional mobility. Pt. will be able to maintain static standing balance 5-10 minutes with Modified [place] using wheeled walker to improve independence. Pt. will be able to maintain dynamic standing balance during side-stepping L/R and marching with Modified [place] using wheeled walker to improve functional mobility. Education: Primary Learners Name: Ray Phillips Primary Language of learner: [place] Irish Patient was educated on precautions exercises transfers ADLs balance bed mobility equipment therapy plan gait safety. Education was completed verbal hands-on demonstration this date. Preference of learning new concepts verbal hands-on demonstration Barriers to education this date were pain. Response to education this date needs follow up. TOLOGIC SUPERVISOR * Ramez Steve, JoannD - 07/26/2022 3:08 PM CST Vancomycin Pharmacokinetic [...] Consult per Dr. Srinath STEVE, PharmD Phone: [phone] 07/26/2022 3:08 PM TOLOGIC SUPERVISOR * Florencio Amaya MD - 07/26/2022 10:12 [...] nebulizer solution 3 mL 3 mL Nebulization [id number] Jennifer Yo MD 3 mL at 07/26/22 0745 ??? lidocaine-EPINEPHrine 2 %-[id number] injection 20 mL 20 mL Intradermal Once [...] and Affect: Mood normal. Recent Labs Lab 07/26/22 0238 WBC 17.5* RBC 2.26* HGB 7.6* HCT 22.9* MCV 101.3* MCH 33.6* MCHC 33.2 PLT 283 RDW 13.8 MPV 10.6* NEUC 16.80* LYMC 0.53* MONOC 0.18 EOSC 0.00 BASOC 0.00 Recent Labs Lab 07/26/22 0238 NA 135* K 4.5 CL 105 CO2 [...] Referred By: PROVIDER NON-STAFF Electronically Signed By: Kraine Sher MD on 21:23 AM Interpreted By: [...] [facility] ?? Pneumonia Acute hypoxic resp failure [...] high likelihood for decompensation. FLORENCIO AMAYA MD TOLOGIC SUPERVISOR * Nan Gomez RN - 07/26/2022 2:31 [...] potential discharge needs. Outcome: Met This Shift TOLOGIC SUPERVISOR * Ann Hammond NP - 07/26/2022 2:00 AM CST Pt seen at bedside, cta reviewed, Saturations 94% on 14l HFNC, Viji hgb 7.5 Does not appear dyspneic at rest, Repeat labs/abg ordered, D/w intnsivist Will need IR consult CT surgery consult in am- low threshold to transfer to ICU for hemodynamic instability or worsening resp status TOLOGIC SUPERVISOR * Allyn Irby PharmD - 07/25/2022 5:55 [...] Consult per Dr. Srinath IRBY, PharmD Phone: [phone] 07/25/2022 5:55 PM TOLOGIC SUPERVISOR documented in this encounter H&P Notes * [...] during recuperation were discussed with the patient/family/personal customer success representative. Reasonable alternatives to the patient's proposed procedure/surgery including benefits, risks, and side effects related to the alternatives and the risks related to not receiving the proposed care were also discussed with the patient/family/personal customer success representative. Questions were answered and the patient /family/personal customer success representative verbalized understanding and desires to proceed. Cosigned by Ross Blackburn MD at 08/03/2022 11:37 AM CRYPTOLOGIC SUPERVISOR TOLOGIC SUPERVISOR TOLOGIC SUPERVISOR Source Note - Raquel Wetzel MD - 07/26/2022 11:38 AM CRYPTOLOGIC SUPERVISOR DESTINI Thoracic Surgery Consult Reason for consult: [...] was not improvingso he was transferred to [facility] were CT of the chest was obtained [...] Ross Blackburn MD at 07/27/2022 6:52 AM CRYPTOLOGIC SUPERVISOR TOLOGIC SUPERVISOR TOLOGIC SUPERVISOR * Tracy Yo MD - 07/25/2022 1:55 PM CST Attending Provider: Tracy Yo,* PCP: GRACIELA LEIGH MD Ray Phillips is an 67-year-old male. Reason for Admission: Respiratory failure ([facility]) HPI: 67-year-old male with past medical history significant for chronic back pain due to back trauma 20 years ago, anxiety/depression, tobacco abuse who presents to [facility] with complaint of shortness of breath. He was diagnosed with pneumonia and was being treated with antibiotics but his symptoms reportedly did not improve. His chest CT showed diffuse pulmonary disease consistent with pneumonia and a loculated right pleural effusion. Upon arrival to [facility], patient reports intermittent shortness of breath. He [...] hernia. Mild splenomegaly. CTA chest performed on 07/21/22 reported to show limited examination, no occlusive [...] that [facility]. Differential diagnosis include complicated community-acquired pneumonia [...] Mechanical DVT prophylaxis Tracy Yo MD 07/25/2022 TOLOGIC SUPERVISOR documented in this encounter Procedure Notes * [...] sent to cytology and microbiology Kenisha Pineda TOLOGIC SUPERVISOR documented in this encounter Consult Notes * [...] was not improvingso he was transferred to [facility] were CT of the chest was obtained [...] Ross Blackburn MD at 07/27/2022 6:52 AM CRYPTOLOGIC SUPERVISOR TOLOGIC SUPERVISOR TOLOGIC SUPERVISOR * Michaelle Nielsen MD - 07/26/2022 11:23 AM CSTSummary: DESTINI ID Consult Note DESTINI INFECTIOUS DISEASE CONSULT NOTE Consulting Provider: Attending Provider: Florencio Amaya MD PCP: GRACIELA LEIGH MD Reason for Consultation: Loculated pleural effusions, Pneumonia History of Present Illness: Ray Phillips is a 67-year-old male with medical history of chronic tobacco use who was transferred from [facility] near [place] for treatment resistant pneumonia and loculated pleural effusions. Prior to hospitalization, patient had 1 week of daily hemoptysis, shortness of breath, and right sided lower chest pain. Reports the hemoptysis was about the size of a silver dollar. He had hemoptysis about one year ago, but it resolved spontaneously without medical intervention. He went to [facility] where he was diagnosed with pneumonia. He was started on antibiotics. Further imaging was concerning for loculated pleural effusions and possible malignancy according the patient. He was transferred to [facility] for further care. He was placed on [...] Pending Antimicrobial Regimen Unknown Abx regiment at [facility] Vancomycin IV 1.25g every 24h(07/25 - present) Cefepime IV 2g every 12h(07/25 - present) Azithromycin IV 500mg every 24 hours (07/25 - present) ASSESSMENT AND PLAN Ray Phillips is a 67-year-old male with medical history of chronic tobacco use who was transferred from [facility] near [place] for treatment resistant pneumonia and loculated pleural [...] studies independently reviewed, agree with the above. TOLOGIC SUPERVISOR TOLOGIC SUPERVISOR TOLOGIC SUPERVISOR * Patel Kelsey MD - 07/26/2022 11:12 AM CST DESTINI PULMONOLOGY CONSULT NOTE Attending Provider: Florencio Amaya MD PCP: GRACIELA LEIGH MD Reason for Admission: Respiratory failure ([facility]) Reason for Consult: Respiratory failure, necrotizing pneumonia, [...] this time frame as well. Presented to [facility] last Saturday and started on antibiotics, CT imaging done and showed what was noted above. Transferred to [facility] for further treatment. He is currently on antibiotics and steroids. He has history of smoking 1ppd for past 50 years. Never had lung cancer screening in past. Follows in [place], [place]. He quit smoking 1.5 weeks ago. He has brother with lung cancer. His mother and two sisters also had unknown cancer type. 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 He states he wore protective gear at that time. Travel to [place] in past 6 months, no other travel [...] Recent Labs Lab 07/25/22 1416 07/25/22 1723 07/25/226 07/26/22 0238 WBC 17.6* -- -- 17.5* RBC [...] Patti Pineda MD at 07/26/2022 12:41 PM CRYPTOLOGIC SUPERVISOR TOLOGIC SUPERVISOR TOLOGIC SUPERVISOR Associated attestation - Patti Pineda MD - 07/26/2022 12:41 PM CRYPTOLOGIC SUPERVISOR IKenisha MD, I was asked to see [...] in this encounter Nursing Notes * Nan Gomez, ALANNAH - 07/26/2022 3:58 AM CST Pt outlying report had Hx as including bladder cancer, multi compression fx ( post op), Degenerative joint disease (DJD), 50+ year smoker 1/2 pack a day. Pt stated his R arm scar from brown recluse spider bite. TOLOGIC SUPERVISOR * Charlene Crow RN - 07/25/2022 6:44 [...] Will speak with nurse about further options. TOLOGIC SUPERVISOR documented in this encounter OR Notes * Brief Op Note - JOSEPH Whitehead - 08/02/2022 9:28 AM CST HS Brief Op HSHSTHORACOSCOPY (VATS) WITH RIGHT DECORICATION Procedure Note Ray Phillips 08/02/2022 0730 Procedure(s) (LRB): THORACOSCOPY (VATS) WITH RIGHT DECORICATION (Right) Surgeon(s): Ross Blackburn MD Teachers Aide: Director For [employer]: JOSEPH Whitehead Anesthesia: General Pre-Op Diagnosis: PLEURAL [...] Ross Blackburn MD at 08/03/2022 11:37 AM CRYPTOLOGIC SUPERVISOR TOLOGIC SUPERVISOR TOLOGIC SUPERVISOR * Op Note - Ross Blackburn MD - 08/02/2022 12:00 AM CST PREOPERATIVE DIAGNOSES: Trapped lung, empyema, loculated pleural effusion, pneumonia. POSTOPERATIVE DIAGNOSES: Trapped lung, empyema, loculated pleural effusion, pneumonia. PROCEDURES: Bronchoscopy, right thoracoscopy, decortication of the lung, multilevel intercostal nerve block. SURGEON: Ross Blackburn MD INVESTMENT FUND MANAGER: JOSEPH Flower TYPE OF ANESTHESIA: General. INDICATIONS: [...] to create a multilevel intercostal nerve block. [id number] chest tube was placed and the lung was reexpanded. The trocar sites injected with 0.25% Marcaine and closed including subcuticular skin stitches. Sterile dressings applied. Tolerated well without complication. Noted at completion of procedure, all counts were correct. #[id number] /REG/YAYA/CELESTINA TOLOGIC SUPERVISOR * Brief Op Note - Raul Osuna MD - 07/27/2022 12:11 PM CST PROCEDURE: CT-guided right thoracostomy tube placement Indication: Necrotizing pneumonia with loculated hydropneumothorax Physicians: Raul Osuna M.D. (attending); Rodney Nolasco M.D. (resident) Following informed consent, including discussion of procedural risks, the patient was place in the left lateral decubitus position on the CT table and [place] protocol was observed to verify correct patient, [...] CT. The tract was dilated to 12 Greek. Duringdilation, there was temporary retraction of the [...] will be monitored to determine further management. TOLOGIC SUPERVISOR documented in this encounter Plan of Treatment Pending Results Name Type Priority Associated Diagnoses Date /Time USV VAST TEAM MIDLINE INSERT >5YR US VASC STAT 07/25/2022 5:18 PM CRYPTOLOGIC SUPERVISOR Scheduled Orders Name Type Priority Associated Diagnoses [...] and discharge planning Lifestyle No Angela Dawkins, ELECTRIC GAS APPLIANCES DEMONSTRATOR documented as of this encounter Procedures Procedure Name Priority Date/Time Associated Diagnosis Comments XR CHEST PA OR AP 1V Today 08/08/2022 5:37 AM CRYPTOLOGIC SUPERVISOR COMPREHENSIVE METABOLIC PANEL Routine 08/08/2022 2:22 AM CRYPTOLOGIC SUPERVISOR CBC W/DIFF AUTOMATED Routine 08/08/2022 2:22 AM CRYPTOLOGIC SUPERVISOR HEMOGLOBIN AND HEMATOCRIT STAT 08/07/2022 10:12 AM CRYPTOLOGIC SUPERVISOR XR CHEST PA OR AP 1V Today 08/07/2022 5:57 AM CRYPTOLOGIC SUPERVISOR HOME O2 EVAL Routine 08/06/2022 12:48 PM CRYPTOLOGIC SUPERVISOR XR CHEST PA OR AP 1V Today 08/06/2022 5:28 AM CRYPTOLOGIC SUPERVISOR COMPREHENSIVE METABOLIC PANEL Routine 08/06/2022 4:27 AM CRYPTOLOGIC SUPERVISOR CBC W/DIFF AUTOMATED Routine 08/06/2022 4:27 AM CRYPTOLOGIC SUPERVISOR VANCOMYCIN TIMED 08/06/2022 4:27 AM CRYPTOLOGIC SUPERVISOR HOME O2 EVAL Routine 08/05/2022 2:41 PM CRYPTOLOGIC SUPERVISOR TYPE & SCREEN Routine 08/05/2022 10:53 AM CRYPTOLOGIC SUPERVISOR XR CHEST PA OR AP 1V Today 08/05/2022 5:52 AM CRYPTOLOGIC SUPERVISOR COMPREHENSIVE METABOLIC PANEL Routine 08/05/2022 2:11 AM CRYPTOLOGIC SUPERVISOR CBC W/DIFF AUTOMATED Routine 08/05/2022 2:[address] CHEST WO CON Today 08/04/2022 3:22 PM CRYPTOLOGIC SUPERVISOR XR CHEST PA OR AP 1V Today 08/04/2022 5:27 AM CRYPTOLOGIC SUPERVISOR COMPREHENSIVE METABOLIC PANEL Routine 08/04/2022 2:34 AM CRYPTOLOGIC SUPERVISOR CBC W/DIFF AUTOMATED Routine 08/04/2022 2:34 AM CRYPTOLOGIC SUPERVISOR XR CHEST PA OR AP 1V Today 08/03/2022 5:50 AM CRYPTOLOGIC SUPERVISOR COMPREHENSIVE METABOLIC PANEL Routine 08/03/2022 2:22 AM CRYPTOLOGIC SUPERVISOR CBC W/DIFF AUTOMATED Routine 08/03/2022 2:22 AM CRYPTOLOGIC SUPERVISOR XR CHEST PORTABLE STAT 08/02/2022 9:5 8 AM CRYPTOLOGIC SUPERVISOR CULTURE, TISSUE W/GRAM STAIN Nurse Collected Priority 08/02/2022 8:38 AM CRYPTOLOGIC SUPERVISOR CULTURE, FUNGUS Nurse Collected Priority 08/02/2022 8:38 AM CRYPTOLOGIC SUPERVISOR CULTURE TB/AFB OTHER Routine 08/02/2022 8:38 AM CRYPTOLOGIC SUPERVISOR HC SMEAR ACID FAST/FLUOR-90 Routine 08/02/2022 8:38 AM CRYPTOLOGIC SUPERVISOR CULTURE, ANAEROBIC Nurse Collected Priority 08/02/2022 8:38 AM CRYPTOLOGIC SUPERVISOR THORACOSCOPY W DIAGNOSITC BIOPSY OF LUNG INFILTRATES 08/02/2022 7:13 AM CRYPTOLOGIC SUPERVISOR PLEURAL EFFUSION Case Notes PATHOLOGY Routine 08/02/2022 7:03 AM CRYPTOLOGIC SUPERVISOR TYPE & SCREEN Routine 08/01/2022 11:11 PM CRYPTOLOGIC SUPERVISOR BMP WITHOUT GLUCOSE TIMED 08/01/2022 1 1:31 AM CRYPTOLOGIC SUPERVISOR VANCOMYCIN TIMED 08/01/2022 11:31 AM CRYPTOLOGIC SUPERVISOR COMPREHENSIVE METABOLIC PANEL Routine 08/01/2022 2:42 AM CRYPTOLOGIC SUPERVISOR CBC W/DIFF AUTOMATED Routine 08/01/2022 2:42 AM CRYPTOLOGIC SUPERVISOR COMPREHENSIVE METABOLIC PANEL Routine 07/31/2022 11:[address] CHEST WO CON JAC 07/31/2022 10:22 AM CRYPTOLOGIC SUPERVISOR CBC W/DIFF AUTOMATED Routine 07/31/2022 9:41 AM CRYPTOLOGIC SUPERVISOR XR CHEST PORTABLE Routine 07/31/2022 6:0 0 AM CRYPTOLOGIC SUPERVISOR BRONCHOSCOPY Routine 07/30/2022 4:15 PM CRYPTOLOGIC SUPERVISOR CULTURE RESPIRATORY W/ GRAM STAIN TIMED 07/30/2022 3:30 PM CRYPTOLOGIC SUPERVISOR CULTURE, QUANTITATIVE W/ GRAM STAIN TIMED 07/30/2022 3:30 PM CRYPTOLOGIC SUPERVISOR CULTURE VIRAL RESPIRATORY RAPID Routine 07/30/2022 3:30 PM CRYPTOLOGIC SUPERVISOR CULTURE, FUNGUS TIMED 07/30/2022 3:30 PM CRYPTOLOGIC SUPERVISOR CULTURE HERPES Routine 07/30/2022 3:30 PM CRYPTOLOGIC SUPERVISOR CULTURE CMV Routine 07/30/2022 3:30 PM CRYPTOLOGIC SUPERVISOR CULTURE TB/AFB OTHER Routine 07/30/2022 3:30 PM CRYPTOLOGIC SUPERVISOR HC SMEAR ACID FAST/FLUOR-90 Routine 07/30/2022 3:30 PM CRYPTOLOGIC SUPERVISOR BRONCHOSCOPY 07/30/2022 2:41 PM CRYPTOLOGIC SUPERVISOR VANCOMYCIN TIMED 07/30/2022 6:17 AM CRYPTOLOGIC SUPERVISOR XR CHEST PORTABLE Routine 07/30/2022 5:2 7 AM CRYPTOLOGIC SUPERVISOR CYTOLOGY GENERIC Routine 07/30/2022 12:0 0 AM CRYPTOLOGIC SUPERVISOR CYTOLOGY GENERIC Routine 07/30/2022 12:0 0 AM CRYPTOLOGIC SUPERVISOR CULTURE RESPIRATORY W/ GRAM STAIN Nurse Collected Priority 07/28/2022 2:25 PM CRYPTOLOGIC SUPERVISOR CULTURE, FUNGUS Nurse Collected Priority 07/28/2022 2:25 PM CRYPTOLOGIC SUPERVISOR US ABD LIMITED Today 07/28/2022 11:39 AM CRYPTOLOGIC SUPERVISOR BASIC METABOLIC PANEL Routine 07/28/2022 7:03 AM CRYPTOLOGIC SUPERVISOR CBC W/DIFF AUTOMATED Routine 07/28/2022 7:03 AM CRYPTOLOGIC SUPERVISOR VANCOMYCIN TIMED 07/28/2022 7:03 AM CRYPTOLOGIC SUPERVISOR XR CHEST PORTABLE JAC 07/28/2022 12: 43 AM CRYPTOLOGIC SUPERVISOR XR CHEST PORTABLE JAC 07/27/2022 4:2 2 PM CRYPTOLOGIC SUPERVISOR USE ECHOCARDIOGRAM Today 07/27/2022 1: 13 PM CRYPTOLOGIC SUPERVISOR IR MIDLINE PLACEMENT GREATER 3YR STAT 07/27/2022 11:[address] GD CHEST TUBE INSERT RT Today 07/27/2022 10:57 AM CRYPTOLOGIC SUPERVISOR LDH BODY FLUID Nurse Collected Priority 07/27/2022 10:30 AM CRYPTOLOGIC SUPERVISOR PROTEIN TOTAL FLUID Nurse Collected Priority 07/27/2022 10:30 AM CRYPTOLOGIC SUPERVISOR HC BODY FLUID CULTURE Routine 07/27/2022 10:30 AM CRYPTOLOGIC SUPERVISOR CULTURE, ANAEROBIC Routine 07/27/2022 10 :30 AM CRYPTOLOGIC SUPERVISOR CELL COUNT W/ DIFF BODY FLUID Nurse Collected Priority 07/27/2022 10:30 AM CRYPTOLOGIC SUPERVISOR TRANSFUSE RED BLOOD CELLS Routine 07/27/2022 4:45 AM CRYPTOLOGIC SUPERVISOR BMP WITHOUT GLUCOSE Routine 07/27/2022 2 :40 AM CRYPTOLOGIC SUPERVISOR CBC W/DIFF AUTOMATED Routine 07/27/2022 2:40 AM CRYPTOLOGIC SUPERVISOR HISTOPLASMA ANTIBODY PANEL Routine 07/26/2022 12:55 PM CRYPTOLOGIC SUPERVISOR PROCALCITONIN (PCT) Routine 07/26/2022 1 2:55 PM CRYPTOLOGIC SUPERVISOR HEMOGLOBIN AND HEMATOCRIT TIMED 07/26/2022 12:55 PM CRYPTOLOGIC SUPERVISOR BLASTOMYCES AB PANEL CF ID Routine 07/26/2022 12:55 PM CRYPTOLOGIC SUPERVISOR HAPTOGLOBIN, QUANT Routine 07/26/2022 9: 04 AM CRYPTOLOGIC SUPERVISOR BLOOD SMEAR INTERPRETATION BY Routine 07/26/2022 9:04 AM CRYPTOLOGIC SUPERVISOR XR CHEST PORTABLE JAC 07/26/2022 6:5 5 AM CRYPTOLOGIC SUPERVISOR SED RATE, ERYTHROCYTE (ESR) Routine 07/26/2022 2:38 AM CRYPTOLOGIC SUPERVISOR COMPREHENSIVE METABOLIC PANEL Routine 07/26/2022 2:38 AM CRYPTOLOGIC SUPERVISOR LDH, LACTATE DEHYDROGENASE Routine 07/26/2022 2:38 AM CRYPTOLOGIC SUPERVISOR C-REACTIVE PROTEIN Routine 07/26/2022 2: 38 AM CRYPTOLOGIC SUPERVISOR BLOOD GAS, ARTERIAL LAB STAT 07/26/2022 2:38 AM CRYPTOLOGIC SUPERVISOR CBC W/DIFF AUTOMATED STAT 07/26/2022 2:38 AM CRYPTOLOGIC SUPERVISOR CTA CHEST+ABD+PEL STAT 07/26/2022 12: 32 AM CRYPTOLOGIC SUPERVISOR HEMOGLOBIN AND HEMATOCRIT TIMED 07/25/2022 8:56 PM CRYPTOLOGIC SUPERVISOR RETICULOCYTE CT, AUTO Routine 07/25/2022 8:56 PM CRYPTOLOGIC SUPERVISOR HC INFECT AGENT DETECT OPTICAL Nurse Collected Priority 07/25/2022 8:31 PM CRYPTOLOGIC SUPERVISOR LEGIONELLA AG URINE Nurse Collected Priority 07/25/2022 8:31 PM CRYPTOLOGIC SUPERVISOR HIV 1 ANTIGEN(S), WITH HIV-1 AND HIV-2 ANTIBODIES Routine 07/25/2022 5:23 PM CRYPTOLOGIC SUPERVISOR HEMOGLOBIN AND HEMATOCRIT STAT 07/25/2022 5:23 PM CRYPTOLOGIC SUPERVISOR HC MYCOPLASMA AB-90 Routine 07/25/2022 5 :23 PM CRYPTOLOGIC SUPERVISOR TYPE & SCREEN STAT 07/25/2022 5:23 PM CRYPTOLOGIC SUPERVISOR PROTHROMBIN TIME, VENOUS Routine 07/25/2022 5:23 PM CRYPTOLOGIC SUPERVISOR LDH, LACTATE DEHYDROGENASE Routine 07/25/2022 5:23 PM CRYPTOLOGIC SUPERVISOR BLOOD SMEAR INTERPRETATION BY Routine 07/25/2022 5:23 PM CRYPTOLOGIC SUPERVISOR CULTURE, BACTERIA, BLOOD Routine 07/25/2022 2:17 PM CRYPTOLOGIC SUPERVISOR COMPREHENSIVE METABOLIC PANEL STAT 07/25/2022 2:16 PM CRYPTOLOGIC SUPERVISOR CULTURE, BACTERIA, BLOOD Routine 07/25/2022 2:16 PM CRYPTOLOGIC SUPERVISOR CBC W/DIFF AUTOMATED STAT 07/25/2022 2:16 PM CRYPTOLOGIC SUPERVISOR PATHOLOGY Routine 07/25/2022 12:00 AM CRYPTOLOGIC SUPERVISOR documented in this encounter Results * XR CHEST PA OR AP 1V (08/08/2022 5:37 AM CRYPTOLOGIC SUPERVISOR) Anatomical Region Laterality Modality Chest Radiographic Jasmina ging 08/08/2022 6:12 AM CRYPTOLOGIC SUPERVISOR Impressions 08/08/2022 6:15 AM CRYPTOLOGIC SUPERVISOR Impression: 1. ??Lines and tubes as described. 2. ??Persistent, but improving atelectasis in the lung bases. ??Scant effusions. Referred By: PROVIDER NON-STAFF Interpreted By: Antonio Lockett MD, 08/08/2022 6:12 AM Narrative 08/08/2022 6:15 AM CRYPTOLOGIC SUPERVISOR Date: 08/08/2022 5:34 AM Exam: XR CHEST [...] (ABNORMAL) COMPREHENSIVE METABOLIC PANEL (08/08/2022 2:22 AM CRYPTOLOGIC SUPERVISOR) SODIUM S/P/B 138 136 - 145 MMOL/L 08/08/2022 3:09 AM [facility] POTASSIUM S/P/B 3.5 3.5 - 5.1 MMOL/L 08/08/2022 3:09 AM [facility] CHLORIDE S/P/B 105 98 - 107 MMOL/L 08/08/2022 3:09 AM [facility] CO2 28.9 21.0 - 32.0 MMOL/L 08/08/2022 3:09 AM [facility] GLUCOSE 123(H) 74 - 106 MG/DL 08/08/2022 3:09 AM [facility] BUN 9 7 - 18 MG/DL 08/08/2022 3:09 AM [facility] CREATININE S/P/B 0.66(L) 0.70 - 1.30 MG/DL 08/08/2022 3:09 AM [facility] CALCIUM S/P/B 8.1(L) 8.5 - 10.1 MG/DL 08/08/2022 3:09 AM [facility] BILIRUBIN TOTAL S/P/B 0.5 0.2 - 1.0 MG/DL 08/08/2022 3:09 AM [facility] ALKALINE PHOSPHATASE S/P/B 47 45 - 115 U/L 08/08/2022 3:09 AM [facility] AST 11(L) 15 - 37 U/L 08/08/2022 3:09 AM [facility] ALT 8(L) 16 - 61 U/L 08/08/2022 3:09 AM [facility] TOTAL PROTEIN S/P/B 5.2(L) 6.4 - 8.2 G/DL 08/08/2022 3:09 AM [facility] ALBUMIN S/P/B 1.7(L) 3.4 - 5.0 G/DL 08/08/2022 3:09 AM [facility] ANION GAP 4.1(L) 5.0 - 15.0 MMOL/L 08/08/2022 3:09 AM [facility] OSMOLALITY (CALC) 286 MOSM/KG 022 3:09 AM [facility] Comment:REFERENCE RANGE NOT ESTABLISHED GFR ESTIMATE >90 >90 ML/MIN/1. 73 M2 08/08/2022 3:09 AM [facility] GFR NOTES GFR REFERENCE S: 08/08/2022 3:09 AM [facility] Comment: THE ESTIMATED GFR IS CALCULATED [...] FAILURE: <15 ml/min/1.73 m2 08/08/2022 2:22 AM CRYPTOLOGIC SUPERVISOR Lanre Winter MD LABORATORY Final Result [facility] [address] [place] [address], [id number] * (ABNORMAL) CBC W/DIFF AUTOMATED (08/08/2022 2:22 AM CRYPTOLOGIC SUPERVISOR) WBC 3.7(L) 4.0 - 10.8 x10'3/uL 08/08/2022 2:32 AM [facility] RBC 2.33(L) 4.50 - 6.10 x10'6/uL 08/08/2022 2:32 AM [facility] HGB 7.4(L) 13.0 - 18.0 G/DL 08/08/2022 2:32 AM [facility] HCT 23.7(L) 37.0 - 52.0 % 08/08/2022 2:32 AM [facility] MCV 101.7(H) 78.0 - 100.0 FL 08/08/2022 2:32 AM CRYPTOLOGIC SUPERVISOR [facility] MCH 31.8(H) 27.0 - 31.0 PG 08/08/2022 2:32 AM CRYPTOLOGIC SUPERVISOR [facility] MCHC 31.2(L) 33.0 - 36.0 G/DL 08/08/2022 2:32 AM [facility] RDW 14.9(H) 11.5 - 14.5 % 08/08/2022 2:32 AM CRYPTOLOGIC SUPERVISOR [facility] PLT 186 150 - 350 x10'3/uL 08/08/2022 2:32 AM [facility] MPV 10.2 7.4 - 10.4 FL 08/08/2022 2:32 AM CRYPTOLOGIC SUPERVISOR [facility] ABS. NEUTROPHILS 2.28 1.60 - 8.30 x10'3/uL 08/08/2022 2:32 AM CRYPTOLOGIC SUPERVISOR [facility] ABS. LYMPHOCYTES 0.91 0.80 - 4.70 x10'3/uL 08/08/2022 2:32 AM CRYPTOLOGIC SUPERVISOR [facility] ABS. MONOCYTES 0.40 0.00 - 1.50 x10'3/uL 08/08/2022 2:32 AM CRYPTOLOGIC SUPERVISOR [facility] ABS. EOSINOPHILS 0.10 0.00 - 0.40 x10'3/uL 08/08/2022 2:32 AM [facility] ABS. BASOPHILS 0.01 0.00 - 0.20 x10'3/uL 08/08/2022 2:32 AM [facility] ABS. IMMATURE GRANULOCYTES 0.02 0.00 - 0.03 x10'3/uL 08/08/2022 2:32 AM [facility] ABS. NUCLEATED RBC'S 0.00 0.0 x10'3/uL 08/08/2022 2:32 AM [facility] 08/08/2022 2:22 AM CRYPTOLOGIC SUPERVISOR Lanre Winter MD LABORATORY Final Result [facility] [address] [place] [address], [id number] * (ABNORMAL) HEMOGLOBIN AND HEMATOCRIT (08/07/2022 10:12 AM CRYPTOLOGIC SUPERVISOR) HGB 7.7(L) 13.0 - 18.0 G/DL 08/07/2022 10:27 AM CRYPTOLOGIC SUPERVISOR [facility] HCT 23.7(L) 37.0 - 52.0 % 08/07/2022 10:27 AM CRYPTOLOGIC SUPERVISOR [facility] 08/07/2022 10:1 2 AM CRYPTOLOGIC SUPERVISOR Lanre Winter MD LABORATORY Final Result [facility] [address] [place] [address], [id number] * XR CHEST PA OR AP 1V (08/07/2022 5:57 AM CRYPTOLOGIC SUPERVISOR) Anatomical Region Laterality Modality Chest Radiographic Jasmina ging 08/07/2022 6:38 AM CRYPTOLOGIC SUPERVISOR Impressions 08/07/2022 6:41 AM CRYPTOLOGIC SUPERVISOR IMPRESSION: 1. Persistent bilateral pneumonia with persistent infiltrates in the lower lobes with mild bibasilar pleural effusions, again right larger than left. 2. ??Suspect a small retrocardiac hiatal hernia. Referred By: PROVIDER NON-STAFF Interpreted By: Karine Sher MD, 08/07/2022 6:38 AM Narrative 08/07/2022 6:41 AM CRYPTOLOGIC SUPERVISOR EXAMINATION: XR Portable CXR, 1 View INDICATION: [...] Karine Sher MD, 08/07/2022 6:38 AM [facility] Final Result * XR CHEST PA OR AP 1V (08/06/2022 5:28 AM CRYPTOLOGIC SUPERVISOR) Anatomical Region Laterality Modality Chest Radiographic Jasmina ging 08/06/2022 6:29 AM CRYPTOLOGIC SUPERVISOR Impressions 08/06/2022 6:32 AM CRYPTOLOGIC SUPERVISOR IMPRESSION: Stable chest. Referred By: PROVIDER NON-STAFF Interpreted By: Wali Gary MD, 08/06/2022 6:29 AM Narrative 08/06/2022 6:32 AM CRYPTOLOGIC SUPERVISOR Examination: XR CHEST PA OR AP 1V [...] * Vancomycin Random Level (08/06/2022 4:27 AM CRYPTOLOGIC SUPERVISOR) Pathologist [facility] VANCOMYCIN RANDOM 15.7 MCG/ML 08/06/2022 5:08 AM CRYPTOLOGIC SUPERVISOR [facility] Comment:REFERENCE RANGE NOT ESTABLISHED 08/06/2022 4:27 AM CRYPTOLOGIC SUPERVISOR Lanre Winter MD LABORATORY Final Result [facility] [address] [place] [address], [id number] * (ABNORMAL) COMPREHENSIVE METABOLIC PANEL (08/06/2022 4:27 AM CRYPTOLOGIC SUPERVISOR) Pathologist [facility] SODIUM S/P/B 140 136 - 145 MMOL/L 08/06/2022 5:10 AM CRYPTOLOGIC SUPERVISOR [facility] POTASSIUM S/P/B 3.8 3.5 - 5.1 MMOL/L 08/06/2022 5:10 AM [facility] CHLORIDE S/P/B 107 98 - 107 MMOL/L 08/06/2022 5:10 AM [facility] CO2 27.3 21.0 - 32.0 MMOL/L 08/06/2022 5:10 AM [facility] GLUCOSE 87 74 - 106 MG/DL 08/06/2022 5:10 AM [facility] BUN 8 7 - 18 MG/DL 08/06/2022 5:10 AM [facility] CREATININE S/P/B 0.61(L) 0.70 - 1.30 MG/DL 08/06/2022 5:10 AM [facility] CALCIUM S/P/B 8.0(L) 8.5 - 10.1 MG/DL 08/06/2022 5:10 AM [facility] BILIRUBIN TOTAL S/P/B 0.3 0.2 - 1.0 MG/DL 08/06/2022 5:10 AM [facility] ALKALINE PHOSPHATASE S/P/B 43(L) 45 - 115 U/L 08/06/2022 5:10 AM [facility] AST 9(L) 15 - 37 U/L 08/06/2022 5:10 AM [facility] ALT 8(L) 16 - 61 U/L 08/06/2022 5:10 AM [facility] TOTAL PROTEIN S/P/B 5.2(L) 6.4 - 8.2 G/DL 08/06/2022 5:10 AM [facility] ALBUMIN S/P/B 1.6(L) 3.4 - 5.0 G/DL 08/06/2022 5:10 AM [facility] ANION GAP 5.7 5.0 - 15.0 MMOL/L 08/06/2022 5:10 AM [facility] OSMOLALITY (CALC) 288 MOSM/KG 022 5:10 AM CRYPTOLOGIC SUPERVISOR [facility] Comment:REFERENCE RANGE NOT ESTABLISHED GFR ESTIMATE >90 >90 ML/MIN/1. 73 M2 08/06/2022 5:10 AM CRYPTOLOGIC SUPERVISOR [facility] GFR NOTES GFR REFERENCE S: 08/06/2022 5:10 AM CRYPTOLOGIC SUPERVISOR [facility] Comment: THE ESTIMATED GFR IS [...] FAILURE: <15 ml/min/1.73 m2 08/06/2022 4:27 AM CRYPTOLOGIC SUPERVISOR us Lanre Winter MD LABORATORY Final Result [facility] [address] [place] [address], [id number] * (ABNORMAL) CBC W/DIFF AUTOMATED (08/06/2022 4:27 AM CRYPTOLOGIC SUPERVISOR) WBC 5.1 4.0 - 10.8 x10'3/uL 08/06/2022 4:45 AM CRYPTOLOGIC SUPERVISOR [facility] RBC 2.32(L) 4.50 - 6.10 x10'6/uL 08/06/2022 4:45 AM [facility] HGB 7.6(L) 13.0 - 18.0 G/DL 08/06/2022 4:45 AM CRYPTOLOGIC SUPERVISOR [facility] HCT 24.1(L) 37.0 - 52.0 % 08/06/2022 4:45 AM [facility] MCV 103.9(H) 78.0 - 100.0 FL 08/06/2022 4:45 AM [facility] MCH 32.8(H) 27.0 - 31.0 PG 08/06/2022 4:45 AM [facility] MCHC 31.5(L) 33.0 - 36.0 G/DL 08/06/2022 4:45 AM [facility] RDW 15.0(H) 11.5 - 14.5 % 08/06/2022 4:45 AM [facility] PLT 207 150 - 350 x10'3/uL 08/06/2022 4:45 AM [facility] MPV 10.4 7.4 - 10.4 FL 08/06/2022 4:45 AM [facility] ABS. NEUTROPHILS 3.59 1.60 - 8.30 x10'3/uL 08/06/2022 4:45 AM [facility] ABS. LYMPHOCYTES 0.90 0.80 - 4.70 x10'3/uL 08/06/2022 4:45 AM [facility] ABS. MONOCYTES 0.45 0.00 - 1.50 x10'3/uL 08/06/2022 4:45 AM [facility] ABS. EOSINOPHILS 0.09 0.00 - 0.40 x10'3/uL 08/06/2022 4:45 AM [facility] ABS. BASOPHILS 0.01 0.00 - 0.20 x10'3/uL 08/06/2022 4:45 AM [facility] ABS. IMMATURE GRANULOCYTES 0.03 0.00 - 0.03 x10'3/uL 08/06/2022 4:45 AM [facility] ABS. NUCLEATED RBC'S 0.00 0.0 x10'3/uL 08/06/2022 4:45 AM [facility] 08/06/2022 4:27 AM CRYPTOLOGIC SUPERVISOR us Lanre Winter MD LABORATORY Final Result Performing Organization Address [facility] Co de Phone Number [facility] [address] [place] [address], [place] [phone] [phone] * TYPE & SCREEN (08/05/2022 10:53 AM CRYPTOLOGIC SUPERVISOR) ABO/RH B POSITIVE 08/05/2022 12:05 PM CRYPTOLOGIC SUPERVISOR [facility] ANTIBODY SCREEN NEGATIVE 08/05/2022 12:05 PM CRYPTOLOGIC SUPERVISOR [facility] SAMPLE EXPIRATION 08/08/2022,2 359 08/05/2022 11:06 AM CRYPTOLOGIC SUPERVISOR [facility] 08/05/2022 10:5 3 AM CRYPTOLOGIC SUPERVISOR us Lanre Winter MD BLOOD BANK TEST ORDERABLES Fin al Result Performing Organization Address [facility] de Phone Number [facility] [address] [place] [address], [place] [phone] * XR CHEST PA OR AP 1V (08/05/2022 5:52 AM CRYPTOLOGIC SUPERVISOR) Anatomical Region Laterality Modality Chest Radiographic Jasmina ging 08/05/2022 7:35 AM CRYPTOLOGIC SUPERVISOR Impressions 08/05/2022 7:37 AM CRYPTOLOGIC SUPERVISOR IMPRESSION: Unchanged appearance of the chest when compared with the radiograph exam from yesterday. Ordered By: EDVIN POLLACK Interpreted By: Antonio Hill MD, 08/05/2022 7:35 AM Narrative 08/05/2022 7:37 AM CRYPTOLOGIC SUPERVISOR Examination: XR CHEST PA OR AP 1V, [...] (ABNORMAL) COMPREHENSIVE METABOLIC PANEL (08/05/2022 2:11 AM CRYPTOLOGIC SUPERVISOR) SODIUM S/P/B 136 136 - 145 MMOL/L 08/05/2022 3:20 AM [facility] POTASSIUM S/P/B 3.4(L) 3.5 - 5.1 MMOL/L 08/05/2022 3:20 AM [facility] CHLORIDE S/P/B 104 98 - 107 MMOL/L 08/05/2022 3:20 AM [facility] CO2 27.9 21.0 - 32.0 MMOL/L 08/05/2022 3:20 AM [facility] GLUCOSE 114(H) 74 - 106 MG/DL 08/05/2022 3:20 AM [facility] BUN 11 7 - 18 MG/DL 08/05/2022 3:20 AM [facility] CREATININE S/P/B 0.58(L) 0.70 - 1.30 MG/DL 08/05/2022 3:20 AM [facility] CALCIUM S/P/B 7.9(L) 8.5 - 10.1 MG/DL 08/05/2022 3:20 AM [facility] BILIRUBIN TOTAL S/P/B 0.4 0.2 - 1.0 MG/DL 08/05/2022 3:20 AM [facility] ALKALINE PHOSPHATASE S/P/B 39(L) 45 - 115 U/L 08/05/2022 3:20 AM [facility] AST 8(L) 15 - 37 U/L 08/05/2022 3:20 AM [facility] ALT 8(L) 16 - 61 U/L 08/05/2022 3:20 AM [facility] TOTAL PROTEIN S/P/B 4.9(L) 6.4 - 8.2 G/DL 08/05/2022 3:20 AM [facility] ALBUMIN S/P/B 1.5(L) 3.4 - 5.0 G/DL 08/05/2022 3:20 AM [facility] ANION GAP 4.1(L) 5.0 - 15.0 MMOL/L 08/05/2022 3:20 AM [facility] OSMOLALITY (CALC) 282 MOSM/KG 022 3:20 AM [facility] Comment:REFERENCE RANGE NOT ESTABLISHED GFR ESTIMATE >90 >90 ML/MIN/1. 73 M2 08/05/2022 3:20 AM [facility] GFR NOTES GFR REFERENCE S: 08/05/2022 3:20 AM [facility] Comment: THE ESTIMATED GFR IS CALCULATED [...] FAILURE: <15 ml/min/1.73 m2 08/05/2022 2:11 AM CRYPTOLOGIC SUPERVISOR us Lanre Winter MD LABORATORY Final Result [facility] [address] [place] [address], [place] [phone] [id number] * (ABNORMAL) CBC W/DIFF AUTOMATED (08/05/2022 2:11 AM CRYPTOLOGIC SUPERVISOR) WBC 6.6 4.0 - 10.8 x10'3/uL 08/05/2022 2:39 AM CRYPTOLOGIC SUPERVISOR [facility] RBC 2.17(L) 4.50 - 6.10 x10'6/uL 08/05/2022 2:39 AM CRYPTOLOGIC SUPERVISOR [facility] HGB 7.0(L) 13.0 - 18.0 G/DL 08/05/2022 2:39 AM CRYPTOLOGIC SUPERVISOR [facility] HCT 22.0(L) 37.0 - 52.0 % 08/05/2022 2:39 AM CRYPTOLOGIC SUPERVISOR [facility] MCV 101.4(H) 78.0 - 100.0 FL 08/05/2022 2:39 AM CRYPTOLOGIC SUPERVISOR [facility] MCH 32.3(H) 27.0 - 31.0 PG 08/05/2022 2:39 AM CRYPTOLOGIC SUPERVISOR [facility] MCHC 31.8(L) 33.0 - 36.0 G/DL 08/05/2022 2:39 AM CRYPTOLOGIC SUPERVISOR [facility] RDW 14.7(H) 11.5 - 14.5 % 08/05/2022 2:39 AM [facility] PLT 185 150 - 350 x10'3/uL 08/05/2022 2:39 AM [facility] MPV 11.0(H) 7.4 - 10.4 FL 08/05/2022 2:39 AM [facility] ABS. NEUTROPHILS 4.78 1.60 - 8.30 x10'3/uL 08/05/2022 2:39 AM [facility] ABS. LYMPHOCYTES 1.03 0.80 - 4.70 x10'3/uL 08/05/2022 2:39 AM [facility] ABS. MONOCYTES 0.68 0.00 - 1.50 x10'3/uL 08/05/2022 2:39 AM [facility] ABS. EOSINOPHILS 0.10 0.00 - 0.40 x10'3/uL 08/05/2022 2:39 AM [facility] ABS. BASOPHILS 0.01 0.00 - 0.20 x10'3/uL 08/05/2022 2:39 AM [facility] ABS. IMMATURE GRANULOCYTES 0.03 0.00 - 0.03 x10'3/uL 08/05/2022 2:39 AM [facility] ABS. NUCLEATED RBC'S 0.00 0.0 x10'3/uL 08/05/2022 2:39 AM [facility] 08/05/2022 2:11 AM CRYPTOLOGIC SUPERVISOR us Lanre Winter MD LABORATORY Final Result [facility] [address] [place] [address], [id number] * CT CHEST WO CON (08/04/2022 3:22 PM CRYPTOLOGIC SUPERVISOR) Anatomical Region Laterality Modality Chest Computed Tomogra phy 08/04/2022 3:35 PM CRYPTOLOGIC SUPERVISOR Impressions 08/04/2022 5:17 PM CRYPTOLOGIC SUPERVISOR IMPRESSION: 1. Interval decrease in size of [...] 08/04/2022 3:35 PM Narrative 08/04/2022 5:17 PM CRYPTOLOGIC SUPERVISOR EXAMINATION: CT CHEST - NON CONTRAST INDICATION: [...] PA OR AP 1V (08/04/2022 5:27 AM CRYPTOLOGIC SUPERVISOR) Anatomical Region Laterality Modality Chest Radiographic Jasmina ging 08/04/2022 6:43 AM CRYPTOLOGIC SUPERVISOR Impressions 08/04/2022 6:44 AM CRYPTOLOGIC SUPERVISOR IMPRESSION: ======== ?? 1. ??Increasing size of tiny right effusion with scattered right lower lung increasing infiltrates. ??Improving effusion on the left. Referred By: PROVIDER NON-STAFF Interpreted By: Mitch Carpenter MD, 08/04/2022 6:43 AM Narrative 08/04/2022 6:44 AM CRYPTOLOGIC SUPERVISOR Examination: Chest Radiograph, 1 view Exam Date/Time: [...] (ABNORMAL) COMPREHENSIVE METABOLIC PANEL (08/04/2022 2:34 AM CRYPTOLOGIC SUPERVISOR) SODIUM S/P/B 137 136 - 145 MMOL/L 08/04/2022 3:11 AM CRYPTOLOGIC SUPERVISOR [facility] POTASSIUM S/P/B 3.7 3.5 - 5.1 MMOL/L 08/04/2022 3:11 AM [facility] CHLORIDE S/P/B 103 98 - 107 MMOL/L 08/04/2022 3:11 AM [facility] CO2 28.6 21.0 - 32.0 MMOL/L 08/04/2022 3:11 AM CRYPTOLOGIC SUPERVISOR [facility] GLUCOSE 106 74 - 106 MG/DL 08/04/2022 3:11 AM [facility] BUN 12 7 - 18 MG/DL 08/04/2022 3:11 AM CRYPTOLOGIC SUPERVISOR [facility] CREATININE S/P/B 0.62(L) 0.70 - 1.30 MG/DL 08/04/2022 3:11 AM CRYPTOLOGIC SUPERVISOR [facility] CALCIUM S/P/B 7.9(L) 8.5 - 10.1 MG/DL 08/04/2022 3:11 AM [facility] BILIRUBIN TOTAL S/P/B 0.6 0.2 - 1.0 MG/DL 08/04/2022 3:11 AM [facility] ALKALINE PHOSPHATASE S/P/B 41(L) 45 - 115 U/L 08/04/2022 3:11 AM CRYPTOLOGIC SUPERVISOR [facility] AST 11(L) 15 - 37 U/L 08/04/2022 3:11 AM [facility] ALT 11(L) 16 - 61 U/L 08/04/2022 3:11 AM [facility] TOTAL PROTEIN S/P/B 5.0(L) 6.4 - 8.2 G/DL 08/04/2022 3:11 AM CRYPTOLOGIC SUPERVISOR [facility] ALBUMIN S/P/B 1.6(L) 3.4 - 5.0 G/DL 08/04/2022 3:11 AM CRYPTOLOGIC SUPERVISOR [facility] ANION GAP 5.4 5.0 - 15.0 MMOL/L 08/04/2022 3:11 AM [facility] OSMOLALITY (CALC) 284 MOSM/KG 022 3:11 AM [facility] Comment:REFERENCE RANGE NOT ESTABLISHED GFR ESTIMATE >90 >90 ML/MIN/1. 73 M2 08/04/2022 3:11 AM [facility] GFR NOTES GFR REFERENCE S: 08/04/2022 3:11 AM [facility] Comment: THE ESTIMATED GFR IS CALCULATED [...] FAILURE: <15 ml/min/1.73 m2 08/04/2022 2:34 AM CRYPTOLOGIC SUPERVISOR us Lanre Winter MD LABORATORY Final Result [facility] [address] [place] [address], [id number] * (ABNORMAL) CBC W/DIFF AUTOMATED (08/04/2022 2:34 AM CRYPTOLOGIC SUPERVISOR) [facility] WBC 8.5 4.0 - 10.8 x10'3/uL 08/04/2022 2:41 AM [facility] RBC 2.39(L) 4.50 - 6.10 x10'6/uL 08/04/2022 2:41 AM [facility] HGB 7.6(L) 13.0 - 18.0 G/DL 08/04/2022 2:41 AM [facility] HCT 24.4(L) 37.0 - 52.0 % 08/04/2022 2:41 AM [facility] MCV 102.1(H) 78.0 - 100.0 FL 08/04/2022 2:41 AM [facility] MCH 31.8(H) 27.0 - 31.0 PG 08/04/2022 2:41 AM [facility] MCHC 31.1(L) 33.0 - 36.0 G/DL 08/04/2022 2:41 AM [facility] RDW 14.8(H) 11.5 - 14.5 % 08/04/2022 2:41 AM [facility] PLT 178 150 - 350 x10'3/uL 08/04/2022 2:41 AM [facility] MPV 10.3 7.4 - 10.4 FL 08/04/2022 2:41 AM [facility] ABS. NEUTROPHILS 6.33 1.60 - 8.30 x10'3/uL 08/04/2022 2:41 AM [facility] ABS. LYMPHOCYTES 1.11 0.80 - 4.70 x10'3/uL 08/04/2022 2:41 AM [facility] ABS. MONOCYTES 0.85 0.00 - 1.50 x10'3/uL 08/04/2022 2:41 AM CRYPTOLOGIC SUPERVISOR [facility] ABS. EOSINOPHILS 0.14 0.00 - 0.40 x10'3/uL 08/04/2022 2:41 AM CRYPTOLOGIC SUPERVISOR [facility] ABS. BASOPHILS 0.01 0.00 - 0.20 x10'3/uL 08/04/2022 2:41 AM CRYPTOLOGIC SUPERVISOR [facility] ABS. IMMATURE GRANULOCYTES 0.05(H) 0.00 - 0.03 x10'3/uL 08/04/2022 2:41 AM CRYPTOLOGIC SUPERVISOR [facility] ABS. NUCLEATED RBC'S 0.00 0.0 x10'3/uL 08/04/2022 2:41 AM CRYPTOLOGIC SUPERVISOR [facility] 08/04/2022 2:34 AM CRYPTOLOGIC SUPERVISOR Lanre Winter MD LABORATORY Final Result [facility] [address] [place] [address], [id number] * XR CHEST PA OR AP 1V (08/03/2022 5:50 AM CRYPTOLOGIC SUPERVISOR) Anatomical Region Laterality Modality Chest Radiographic Jasmina ging 08/03/2022 9:15 AM CRYPTOLOGIC SUPERVISOR Impressions 08/03/2022 9:16 AM CRYPTOLOGIC SUPERVISOR IMPRESSION: ======== ?? Developing tiny right pleural effusion otherwise stable interval appearance of infiltrates or atelectasis in the lung bases with probable left effusion. Referred By: PROVIDER NON-STAFF Interpreted By: Mitch Carpenter MD, 08/03/2022 9:15 AM Narrative 08/03/2022 9:16 AM CRYPTOLOGIC SUPERVISOR Examination: Chest Radiograph, 1 view Exam Date/Time: [...] By: Mitch Carpenter MD, 08/03/2022 9:15 AM [facility] IMAG[facility] Final Result * (ABNORMAL) COMPREHENSIVE METABOLIC PANEL (08/03/2022 2:22 AM CRYPTOLOGIC SUPERVISOR) SODIUM S/P/B 136 136 - 145 MMOL/L 08/03/2022 3:42 AM CRYPTOLOGIC SUPERVISOR [facility] POTASSIUM S/P/B 3.8 3.5 - 5.1 MMOL/L 08/03/2022 3:42 AM [facility] CHLORIDE S/P/B 102 98 - 107 MMOL/L 08/03/2022 3:42 AM [facility] CO2 28.4 21.0 - 32.0 MMOL/L 08/03/2022 3:42 AM [facility] GLUCOSE 109(H) 74 - 106 MG/DL 08/03/2022 3:42 AM [facility] BUN 11 7 - 18 MG/DL 08/03/2022 3:42 AM [facility] CREATININE S/P/B 0.75 0.70 - 1.30 MG/DL 08/03/2022 3:42 AM [facility] CALCIUM S/P/B 8.0(L) 8.5 - 10.1 MG/DL 08/03/2022 3:42 AM [facility] BILIRUBIN TOTAL S/P/B 0.6 0.2 - 1.0 MG/DL 08/03/2022 3:42 AM [facility] ALKALINE PHOSPHATASE S/P/B 49 45 - 115 U/L 08/03/2022 3:42 AM [facility] AST 11(L) 15 - 37 U/L 08/03/2022 3:42 AM [facility] ALT 13(L) 16 - 61 U/L 08/03/2022 3:42 AM [facility] TOTAL PROTEIN S/P/B 5.4(L) 6.4 - 8.2 G/DL 08/03/2022 3:42 AM [facility] ALBUMIN S/P/B 1.9(L) 3.4 - 5.0 G/DL 08/03/2022 3:42 AM [facility] ANION GAP 5.6 5.0 - 15.0 MMOL/L 08/03/2022 3:42 AM [facility] OSMOLALITY (CALC) 282 MOSM/KG 022 3:42 AM CRYPTOLOGIC SUPERVISOR [facility] Comment:REFERENCE RANGE NOT ESTABLISHED GFR ESTIMATE >90 >90 ML/MIN/1. 73 M2 08/03/2022 3:42 AM CRYPTOLOGIC SUPERVISOR [facility] GFR NOTES GFR REFERENCE S: 08/03/2022 3:42 AM CRYPTOLOGIC SUPERVISOR [facility] Comment: THE ESTIMATED GFR IS [...] FAILURE: <15 ml/min/1.73 m2 08/03/2022 2:22 AM CRYPTOLOGIC SUPERVISOR Lanre Winter MD LABORATORY Final Result [facility] [address] [place] [address], [id number] * (ABNORMAL) CBC W/DIFF AUTOMATED (08/03/2022 2:22 AM CRYPTOLOGIC SUPERVISOR) WBC 11.0(H) 4.0 - 10.8 x10'3/uL 08/03/2022 3:09 AM CRYPTOLOGIC SUPERVISOR [facility] RBC 2.84(L) 4.50 - 6.10 x10'6/uL 08/03/2022 3:09 AM CRYPTOLOGIC SUPERVISOR [facility] HGB 9.2(L) 13.0 - 18.0 G/DL 08/03/2022 3:09 AM CRYPTOLOGIC SUPERVISOR [facility] HCT 28.9(L) 37.0 - 52.0 % 08/03/2022 3:09 AM [facility] MCV 101.8(H) 78.0 - 100.0 FL 08/03/2022 3:09 AM [facility] MCH 32.4(H) 27.0 - 31.0 PG 08/03/2022 3:09 AM [facility] MCHC 31.8(L) 33.0 - 36.0 G/DL 08/03/2022 3:09 AM [facility] RDW 15.1(H) 11.5 - 14.5 % 08/03/2022 3:09 AM [facility] PLT 216 150 - 350 x10'3/uL 08/03/2022 3:09 AM [facility] MPV 10.8(H) 7.4 - 10.4 FL 08/03/2022 3:09 AM [facility] ABS. NEUTROPHILS 8.98(H) 1.60 - 8.30 x10'3/uL 08/03/2022 3:09 AM [facility] ABS. LYMPHOCYTES 0.81 0.80 - 4.70 x10'3/uL 08/03/2022 3:09 AM [facility] ABS. MONOCYTES 1.00 0.00 - 1.50 x10'3/uL 08/03/2022 3:09 AM [facility] ABS. EOSINOPHILS 0.12 0.00 - 0.40 x10'3/uL 08/03/2022 3:09 AM [facility] ABS. BASOPHILS 0.01 0.00 - 0.20 x10'3/uL 08/03/2022 3:09 AM [facility] ABS. IMMATURE GRANULOCYTES 0.08(H) 0.00 - 0.03 x10'3/uL 08/03/2022 3:09 AM [facility] ABS. NUCLEATED RBC'S 0.00 0.0 x10'3/uL 08/03/2022 3:09 AM [facility] 08/03/2022 2:22 AM CRYPTOLOGIC SUPERVISOR Lanre Winter MD LABORATORY Final Result [facility] [address] [place] [address], [place] [phone] [id number] * XR CHEST PORTABLE (08/02/2022 9:58 AM CRYPTOLOGIC SUPERVISOR) Anatomical Region Laterality Modality Chest Radiographic Jasmina ging 08/02/2022 10:5 5 AM CRYPTOLOGIC SUPERVISOR Impressions 08/02/2022 10:57 AM CRYPTOLOGIC SUPERVISOR IMPRESSION: 1. Unchanged bibasilar opacities. Ordered By: EDVIN POLLACK Interpreted By: Atilio Read MD, 08/02/2022 10:55 AM Narrative 08/02/2022 10:57 AM CRYPTOLOGIC SUPERVISOR Examination: X-ray chest, 1 view Exam time: [...] By: Atilio Read MD, 08/02/2022 10:55 AM Edvin Pollack [place] GENERAL IMAGING Final Result * SMEAR,FLUOR STAIN,ACID FAST (08/02/2022 8:38 AM CRYPTOLOGIC SUPERVISOR) ACID FAST SMEAR RESULT SEE NOTE 07:45 PM 08/05/2022 7:45 PM CRYPTOLOGIC SUPERVISOR [facility] Comment: Test ?Result ??Flag ??Unit ??RefValue Acid Fast Smear For Mycobacterium SOURCE: LUNG, RIGHT, RT DECORTICATION TIS ACID FAST SMEAR FOR MYCOBACTERIUM ?FINAL Negative. Test Performed by: [place] [address] Paleontology Teacher: Brent Alcaraz M.D. Ph.D.; CLIA# [id number] 08/02/2022 8:38 AM CRYPTOLOGIC SUPERVISOR us Ross Blackburn MD MICROBIOLOGY - GENERAL OR DERABLES Final Result [facility] [address] [place] [address] * CULTURE, TISSUE W/GRAM STAIN (08/02/2022 8:38 AM CRYPTOLOGIC SUPERVISOR) SPEC DESCRIPTION TISSUE: RT DECORTICATION TISU 08/02/2022 8:43 AM CRYPTOLOGIC SUPERVISOR [facility] SPECIAL REQUESTS NO SPECIAL REQUEST 08/02/2022 8:43 AM CRYPTOLOGIC SUPERVISOR [facility] GRAM STAIN RESULT MODERATE NEUTROPHILS SEEN 08/02/2022 4:02 PM [facility] GRAM STAIN RESULT NO ORGANISMS SEEN 08/02/2022 4:02 PM [facility] CULTURE RESULT NO GROWTH 5 DAYS 01/2022 11:36 AM [facility] TISSUE TISSUE SPECIMEN / Unknown 08/02/2022 8:38 AM CRYPTOLOGIC SUPERVISOR Ross Blackburn MD MICROBIOLOGY - GENERAL OR DERABLES Final Result [facility] [address] [place] [address], [id number] * CULTURE, FUNGUS (08/02/2022 8:38 AM CRYPTOLOGIC SUPERVISOR) SOURCE (QUINCY) TISSUE 08/02/2022 10:10 AM [facility] Comment:RT DECORTICATION TIS U CULTURE RESULT SEE NOTE 08/29/2022 01:03 AM 08/29/2022 1:03 AM CRYPTOLOGIC SUPERVISOR [facility] Comment: Test ?Result ?Flag ??Unit ??RefValue Fungal Culture, Routine ? SOURCE: LUNG, RIGHT, TISSUE RT DECORTICATION TISU FUNGAL CULTURE, ROUTINE ?FINAL No growth after 24 days of incubation. Test Performed by: [address] [address] Paleontology Teacher: Brent Alcaraz M.D. Ph.D.; CLIA# [id number] TISSUE (OTHER (type in comments)) 08/02/2022 8:38 AM CRYPTOLOGIC SUPERVISOR Ross Blackburn MD MICROBIOLOGY - GENERAL OR DERABLES Final Result [facility] [address] [place] [address] [facility] [address] [place] [address], [id number] * CULTURE TB/AFB OTHER (TYPE IN COMMENTS) (08/02/2022 8:38 AM CRYPTOLOGIC SUPERVISOR) SOURCE (QUINCY) TISSUE 08/02/2022 10:09 AM CRYPTOLOGIC SUPERVISOR [facility] Comment:RT DECORTICATION TIS U CULTURE RESULT SEE NOTE 09/16/2022 01:03 AM 09/16/2022 1:03 AM CRYPTOLOGIC SUPERVISOR [facility] Comment: Test ?Result ?Flag ??Unit ??RefValue Mycobacterial Culture ? SOURCE: LUNG, RIGHT, TISSUE RT DECORTICATION TISU MYCOBACTERIAL CULTURE ?FINAL No growth after 42 days of incubation. Test Performed by: [facility] [address] [place] [address] Paleontology Teacher: Brent Alcaraz M.D. Ph.D.; CLIA# [id number] TISSUE (OTHER (type in comments)) 08/02/2022 8:38 AM CRYPTOLOGIC SUPERVISOR Ross Blackburn MD MICROBIOLOGY - GENERAL OR DERABLES Final Result Performing Organization Address [facility] Co de Phone Number [facility] [address] [place] [address] [facility] [address] [place] [address], [id number] * CULTURE, ANAEROBIC (08/02/2022 8:38 AM CRYPTOLOGIC SUPERVISOR) SPEC DESCRIPTION TISSUE: RT DECORTICATION TISU 08/02/2022 8:43 AM CRYPTOLOGIC SUPERVISOR [facility] SPECIAL REQUESTS NO SPECIAL REQUEST 08/02/2022 8:43 AM CRYPTOLOGIC SUPERVISOR [facility] CULTURE RESULT NO ANAEROBES ISOLATED 08/07/2022 9:10 AM CRYPTOLOGIC SUPERVISOR [facility] TISSUE TISSUE SPECIMEN / Unknown 08/02/2022 8:38 AM CRYPTOLOGIC SUPERVISOR Ross Blackburn MD MICROBIOLOGY - GENERAL OR DERABLES Final Result Performing Organization Address City/[facility]/ZIP Co de Phone Number [facility] [address] [place] [address], [id number] * Pathology (08/02/2022 7:03 AM CRYPTOLOGIC SUPERVISOR) PATHOLOGY [facility] ? Department of Laboratory Medicine ?[address] [facility] ?[place] [address] ? , extension [phone] ? Pathology Report ? Surgical Pathology Report Name: RAY PHILLIPS ? Specimen #: [id number] Age: 9 1955 (Age: 67) ? Location: [facility] Sex: M ?Procedure Date: 08/02/2022 Hospital #: [id number] ?Date Received: 08/02/2022 Date Reported: 08/07/2022 Provider: ROSS BLACKBURN MD Source: Pleural peel, right Clinical History: Pleural effusion Gross Description: Received in formalin, labeled with a patient label and as right lung decortication tissue are multiple pieces and fragments of edematous pale pjkigo-dzyp-mngkr tissue. ??Some of the pieces exhibit some hemorrhagic areas. The pieces are 6 x 4 x 1.0 cm in aggregate. ??Transit Clerk tissue is submitted in cassettes 1-4. Gross examination (when applicable), interpretation and sign-out were performed at [facility], [address] [place] [address], [place], [place], [address]. FINAL DIAGNOSIS: PLEURAL PEEL, RIGHT: ? - CONSISTENT WITH ACUTE FIBRINOUS PLEURITIS. IC: CBG Electronically Signed Out ? GADIEL HANSON MD [facility] TISSUE (OTHER (type in comments)) 08/02/2022 7:03 AM CRYPTOLOGIC SUPERVISOR us Ross Blackburn MD PATHOLOGY/CYTOLOGY ORDERA BLES Final Result Performing Organization Address [facility] Co de Phone Number [facility] [address] [place] [address], [place] [phone] * TYPE & SCREEN (08/01/2022 11:11 PM CRYPTOLOGIC SUPERVISOR) ABO/RH B POSITIVE 08/02/2022 12:25 AM CRYPTOLOGIC SUPERVISOR [facility] ANTIBODY SCREEN NEGATIVE 08/02/2022 12:25 AM CRYPTOLOGIC SUPERVISOR [facility] SAMPLE EXPIRATION 08/04/2022,2 359 08/01/2022 11:27 PM CRYPTOLOGIC SUPERVISOR [facility] 08/01/2022 11:1 1 PM CRYPTOLOGIC SUPERVISOR us Ross Blackburn MD BLOOD BANK TEST ORDERABLE S Final Result Performing Organization Address [facility] de Phone Number [facility] [address] [place] [address], [place] [phone] * (ABNORMAL) BMP WITHOUT GLUCOSE (08/01/2022 11:31 AM CRYPTOLOGIC SUPERVISOR) SODIUM S/P/B 138 136 - 145 MMOL/L 08/01/2022 12:12 PM CRYPTOLOGIC SUPERVISOR [facility] POTASSIUM S/P/B 3.9 3.5 - 5.1 MMOL/L 08/01/2022 12:12 PM CRYPTOLOGIC SUPERVISOR [facility] CHLORIDE S/P/B 107 98 - 107 MMOL/L 08/01/2022 12:12 PM CRYPTOLOGIC SUPERVISOR [facility] CO2 24.1 21.0 - 32.0 MMOL/L 08/01/2022 12:12 PM CRYPTOLOGIC SUPERVISOR [facility] BUN 16 7 - 18 MG/DL 08/01/2022 12:12 PM CRYPTOLOGIC SUPERVISOR [facility] CREATININE S/P/B 0.70 0.70 - 1.30 MG/DL 08/01/2022 12:12 PM CRYPTOLOGIC SUPERVISOR [facility] CALCIUM S/P/B 7.9(L) 8.5 - 10.1 MG/DL 08/01/2022 12:12 PM CRYPTOLOGIC SUPERVISOR [facility] ANION GAP 6.9 5.0 - 15.0 MMOL/L 08/01/2022 12:12 PM CRYPTOLOGIC SUPERVISOR [facility] GFR ESTIMATE >90 >90 ML/MIN/1. 73 M2 08/01/2022 12:12 PM CRYPTOLOGIC SUPERVISOR [facility] GFR NOTES GFR REFERENCE S: 08/01/2022 12:12 PM [facility] Comment: THE ESTIMATED GFR IS CALCULATED [...] <15 ml/min/1.73 m2 08/01/2022 11:3 1 AM CRYPTOLOGIC SUPERVISOR Florencio Amaya MD LABORATORY Final Result [facility] [address] [place] [address], [id number] * Vancomycin Random Level (08/01/2022 11:31 AM CRYPTOLOGIC SUPERVISOR) VANCOMYCIN RANDOM 18.7 MCG/ML 08/01/2022 12:30 PM CRYPTOLOGIC SUPERVISOR [facility] 08/01/2022 11:3 1 AM CRYPTOLOGIC SUPERVISOR Florencio Amaya MD LABORATORY Final Result [facility] [address] [place] [address], [id number] * (ABNORMAL) COMPREHENSIVE METABOLIC PANEL (08/01/2022 2:42 AM CRYPTOLOGIC SUPERVISOR) SODIUM S/P/B 140 136 - 145 MMOL/L 08/01/2022 4:00 AM [facility] POTASSIUM S/P/B 3.4(L) 3.5 - 5.1 MMOL/L 08/01/2022 4:00 AM [facility] CHLORIDE S/P/B 107 98 - 107 MMOL/L 08/01/2022 4:00 AM [facility] CO2 27.2 21.0 - 32.0 MMOL/L 08/01/2022 4:00 AM [facility] GLUCOSE 145(H) 74 - 106 MG/DL 08/01/2022 4:00 AM [facility] BUN 19(H) 7 - 18 MG/DL 08/01/2022 4:00 AM [facility] CREATININE S/P/B 0.77 0.70 - 1.30 MG/DL 08/01/2022 4:00 AM [facility] CALCIUM S/P/B 8.1(L) 8.5 - 10.1 MG/DL 08/01/2022 4:00 AM [facility] BILIRUBIN TOTAL S/P/B 0.4 0.2 - 1.0 MG/DL 08/01/2022 4:00 AM [facility] ALKALINE PHOSPHATASE S/P/B 50 45 - 115 U/L 08/01/2022 4:00 AM [facility] AST 8(L) 15 - 37 U/L 08/01/2022 4:00 AM [facility] ALT 14(L) 16 - 61 U/L 08/01/2022 4:00 AM [facility] TOTAL PROTEIN S/P/B 5.0(L) 6.4 - 8.2 G/DL 08/01/2022 4:00 AM [facility] ALBUMIN S/P/B 1.7(L) 3.4 - 5.0 G/DL 08/01/2022 4:00 AM [facility] ANION GAP 5.8 5.0 - 15.0 MMOL/L 08/01/2022 4:00 AM [facility] OSMOLALITY (CALC) 295 MOSM/KG 022 4:00 AM [facility] Comment:REFERENCE RANGE NOT ESTABLISHED GFR ESTIMATE >90 >90 ML/MIN/1. 73 M2 08/01/2022 4:00 AM [facility] GFR NOTES GFR REFERENCE S: 08/01/2022 4:00 AM [facility] Comment: THE ESTIMATED GFR IS CALCULATED [...] FAILURE: <15 ml/min/1.73 m2 08/01/2022 2:42 AM CRYPTOLOGIC SUPERVISOR us Lanre Winter MD LABORATORY Final Result [facility] [address] [place] [address], [place] [phone] [phone] * (ABNORMAL) CBC W/DIFF AUTOMATED (08/01/2022 2:42 AM CRYPTOLOGIC SUPERVISOR) WBC 11.1(H) 4.0 - 10.8 x10'3/uL 08/01/2022 3:32 AM [facility] RBC 2.58(L) 4.50 - 6.10 x10'6/uL 08/01/2022 3:32 AM [facility] HGB 8.6(L) 13.0 - 18.0 G/DL 08/01/2022 3:32 AM [facility] HCT 26.4(L) 37.0 - 52.0 % 08/01/2022 3:32 AM [facility] MCV 102.3(H) 78.0 - 100.0 FL 08/01/2022 3:32 AM [facility] MCH 33.3(H) 27.0 - 31.0 PG 08/01/2022 3:32 AM [facility] MCHC 32.6(L) 33.0 - 36.0 G/DL 08/01/2022 3:32 AM [facility] RDW 15.4(H) 11.5 - 14.5 % 08/01/2022 3:32 AM [facility] PLT 246 150 - 350 x10'3/uL 08/01/2022 3:32 AM [facility] MPV 10.4 7.4 - 10.4 FL 08/01/2022 3:32 AM [facility] ABS. NEUTROPHILS 8.96(H) 1.60 - 8.30 x10'3/uL 08/01/2022 3:32 AM [facility] ABS. LYMPHOCYTES 1.27 0.80 - 4.70 x10'3/uL 08/01/2022 3:32 AM [facility] ABS. MONOCYTES 0.60 0.00 - 1.50 x10'3/uL 08/01/2022 3:32 AM [facility] ABS. EOSINOPHILS 0.12 0.00 - 0.40 x10'3/uL 08/01/2022 3:32 AM CRYPTOLOGIC SUPERVISOR [facility] ABS. BASOPHILS 0.01 0.00 - 0.20 x10'3/uL 08/01/2022 3:32 AM CRYPTOLOGIC SUPERVISOR [facility] ABS. IMMATURE GRANULOCYTES 0.14(H) 0.00 - 0.03 x10'3/uL 08/01/2022 3:32 AM CRYPTOLOGIC SUPERVISOR [facility] ABS. NUCLEATED RBC'S 0.00 0.0 x10'3/uL 08/01/2022 3:32 AM [facility] 08/01/2022 2:42 AM CRYPTOLOGIC SUPERVISOR Lanre Winter MD LABORATORY Final Result [facility] [address] [place] [address], [id number] * (ABNORMAL) COMPREHENSIVE METABOLIC PANEL (07/31/2022 11:13 AM CRYPTOLOGIC SUPERVISOR) SODIUM S/P/B 137 136 - 145 MMOL/L 07/31/2022 11:54 AM [facility] POTASSIUM S/P/B 3.6 3.5 - 5.1 MMOL/L 07/31/2022 11:54 AM [facility] CHLORIDE S/P/B 104 98 - 107 MMOL/L 07/31/2022 11:54 AM [facility] CO2 27.8 21.0 - 32.0 MMOL/L 07/31/2022 11:54 AM [facility] GLUCOSE 106 74 - 106 MG/DL 07/31/2022 11:54 AM [facility] BUN 20(H) 7 - 18 MG/DL 07/31/2022 11:54 AM [facility] CREATININE S/P/B 0.74 0.70 - 1.30 MG/DL 07/31/2022 11:54 AM [facility] CALCIUM S/P/B 8.1(L) 8.5 - 10.1 MG/DL 07/31/2022 11:54 AM [facility] BILIRUBIN TOTAL S/P/B 0.3 0.2 - 1.0 MG/DL 07/31/2022 11:54 AM [facility] ALKALINE PHOSPHATASE S/P/B 54 45 - 115 U/L 07/31/2022 11:54 AM [facility] AST 8(L) 15 - 37 U/L 07/31/2022 11:54 AM [facility] ALT 15(L) 16 - 61 U/L 07/31/2022 11:54 AM [facility] TOTAL PROTEIN S/P/B 5.6(L) 6.4 - 8.2 G/DL 07/31/2022 11:54 AM [facility] ALBUMIN S/P/B 1.9(L) 3.4 - 5.0 G/DL 07/31/2022 11:54 AM [facility] ANION GAP 5.2 5.0 - 15.0 MMOL/L 07/31/2022 11:54 AM [facility] OSMOLALITY (CALC) 287 MOSM/KG 022 11:54 AM [facility] Comment:REFERENCE RANGE NOT ESTABLISHED GFR ESTIMATE >90 >90 ML/MIN/1. 73 M2 07/31/2022 11:54 AM [facility] GFR NOTES GFR REFERENCE S: 07/31/2022 11:54 AM [facility] Comment: THE ESTIMATED GFR IS CALCULATED [...] <15 ml/min/1.73 m2 07/31/2022 11:1 3 AM CRYPTOLOGIC SUPERVISOR Lanre Winter MD LABORATORY Final Result [facility] [address] [place] [address], [id number] * CT CHEST WO CON (07/31/2022 10:22 AM CRYPTOLOGIC SUPERVISOR) Anatomical Region Laterality Modality Chest Computed Tomogra phy 07/31/2022 1:56 PM CRYPTOLOGIC SUPERVISOR Impressions 07/31/2022 2:07 PM CRYPTOLOGIC SUPERVISOR IMPRESSION: 1. Focal loculated hydropneumothorax, right posterior [...] 07/31/2022 1:56 PM Narrative 07/31/2022 2:07 PM CRYPTOLOGIC SUPERVISOR EXAMINATION: CT Chest without contrast DATE: 07/31/2022 [...] (ABNORMAL) CBC W/DIFF AUTOMATED (07/31/2022 9:41 AM CRYPTOLOGIC SUPERVISOR) WBC 16.2(H) 4.0 - 10.8 x10'3/uL 07/31/2022 9:55 AM CRYPTOLOGIC SUPERVISOR [facility] RBC 3.07(L) 4.50 - 6.10 x10'6/uL 07/31/2022 9:55 AM CRYPTOLOGIC SUPERVISOR [facility] HGB 10.1(L) 13.0 - 18.0 G/DL 07/31/2022 9:55 AM CRYPTOLOGIC SUPERVISOR [facility] HCT 31.0(L) 37.0 - 52.0 % 07/31/2022 9:55 AM CRYPTOLOGIC SUPERVISOR [facility] MCV 101.0(H) 78.0 - 100.0 FL 07/31/2022 9:55 AM CRYPTOLOGIC SUPERVISOR [facility] MCH 32.9(H) 27.0 - 31.0 PG 07/31/2022 9:55 AM CRYPTOLOGIC SUPERVISOR [facility] MCHC 32.6(L) 33.0 - 36.0 G/DL 07/31/2022 9:55 AM CRYPTOLOGIC SUPERVISOR [facility] RDW 15.3(H) 11.5 - 14.5 % 07/31/2022 9:55 AM CRYPTOLOGIC SUPERVISOR [facility] PLT 277 150 - 350 x10'3/uL 07/31/2022 9:55 AM CRYPTOLOGIC SUPERVISOR [facility] MPV 10.4 7.4 - 10.4 FL 07/31/2022 9:55 AM CRYPTOLOGIC SUPERVISOR [facility] ABS. NEUTROPHILS 14.00(H) 1.60 - 8.30 x10'3/uL 07/31/2022 9:55 AM CRYPTOLOGIC SUPERVISOR [facility] ABS. LYMPHOCYTES 1.26 0.80 - 4.70 x10'3/uL 07/31/2022 9:55 AM CRYPTOLOGIC SUPERVISOR [facility] ABS. MONOCYTES 0.59 0.00 - 1.50 x10'3/uL 07/31/2022 9:55 AM CRYPTOLOGIC SUPERVISOR [facility] ABS. EOSINOPHILS 0.01 0.00 - 0.40 x10'3/uL 07/31/2022 9:55 AM [facility] ABS. BASOPHILS 0.02 0.00 - 0.20 x10'3/uL 07/31/2022 9:55 AM [facility] ABS. IMMATURE GRANULOCYTES 0.36(H) 0.00 - 0.03 x10'3/uL 07/31/2022 9:55 AM CRYPTOLOGIC SUPERVISOR [facility] ABS. NUCLEATED RBC'S 0.03(H) 0.0 x10'3/uL 07/31/2022 9:55 AM CRYPTOLOGIC SUPERVISOR [facility] 07/31/2022 9:41 AM CRYPTOLOGIC SUPERVISOR Lanre Winter MD LABORATORY Final Result [facility] [address] [place] [address], [id number] * XR CHEST PORTABLE (07/31/2022 6:00 AM CRYPTOLOGIC SUPERVISOR) Anatomical Region Laterality Modality Chest Radiographic Jasmina ging 07/31/2022 9:13 AM CRYPTOLOGIC SUPERVISOR Impressions 07/31/2022 9:17 AM CRYPTOLOGIC SUPERVISOR IMPRESSION: 1. Right-sided chest remains in place. [...] 07/31/2022 9:13 AM Narrative 07/31/2022 9:17 AM CRYPTOLOGIC SUPERVISOR EXAM DESCRIPTION: Chest 1 view EXAM TIME [...] By: Jin Saravia MD, 07/31/2022 9:13 AM Rodney Nolasco MD GENERAL IMAGING Final Res ult * Bronchoscopy (07/30/2022 4:15 PM CRYPTOLOGIC SUPERVISOR) Narrative Procedure Note Patti Pineda MD - [...] sent to cytology and microbiology Kenisha Pineda us Patti Pineda MD PROCEDURE/MINOR SURGIC AL ORDERABLES Final Result * CULTURE VIRAL RESPIRATORY RAPID (07/30/2022 3:30 PM CRYPTOLOGIC SUPERVISOR) VIRAL RESP RAPID CULTURE W/RFX REPORT 08/05/2022 3:21 PM CRYPTOLOGIC SUPERVISOR [facility] Comment: Respiratory Culture Screen SOURCE : BWASH/BAL MIX IN RESULT ?Negative for Influenza virus, types A and B, Parainfluenza viruses 1,2 # 3, Adenovirus, and Respiratory Syncytial virus. Reference range: Negative Rapid Respiratory Viruses ? Not indicated Test Performed by [facility], [facility], [address] [place] [address] Adrián Balderas M.D., Ph.D., Director of Laboratories , CLIA [id number] SPECIMEN TYPE BWASH/BAL MIX IN VTM 1 TO 1 RATIO, FRZ NEG 70 07/31/2022 2:35 PM CRYPTOLOGIC SUPERVISOR [facility] 07/30/2022 3:30 PM CRYPTOLOGIC SUPERVISOR Patti Pineda MD MICROBIOLOGY - GENERAL ORDERABLES Final Result Performing Organization Address [facility] Co de Phone Number [facility] [address] [place] [address], [place] [phone] [facility] [address] , [place] [phone] * CULTURE HERPES (07/30/2022 3:30 PM CRYPTOLOGIC SUPERVISOR) HERPES SIMPLEX VIRUS CULTURE REPORT 08/03/2022 3:42 PM CRYPTOLOGIC SUPERVISOR [facility] Comment: Herpes Simplex Virus Culture SOURCE : BAL/BWASH MIX IN RESULT ?Not Isolated ?Reference Range: Not Isolated Test Performed by Javier Benítez, [facility], [address] [place] [address] Adrián Balderas M.D., Ph.D., Director of Laboratories , [facility] [id number] SPECIMEN TYPE BAL/BWASH MIX IN VTM 1 TO 1 RATIO, FRZ NEG 70 07/31/2022 2:32 PM CRYPTOLOGIC SUPERVISOR [facility] 07/30/2022 3:30 PM CRYPTOLOGIC SUPERVISOR Patti Pineda MD MICROBIOLOGY - GENERAL ORDERABLES Final Result Performing Organization Address [facility]/ZIP Co de Phone Number [facility] [address] [place] [address], [place] [phone] [facility] [address] , [place] [phone] * CULTURE CMV (07/30/2022 3:30 PM CRYPTOLOGIC SUPERVISOR) [facility] CYTOMEGALOVIRUS CULTURE REPORT 08/06/2022 5:37 PM CRYPTOLOGIC SUPERVISOR [facility] CHLOEKAYLEN TAMIR Comment: CMV Rapid Culture SOURCE : BAL RESULT ?Not Isolated ? Reference Range: Not Isolated Test Performed by Javier Benítez, [facility], [address] [place] [address] Adrián Balderas M.D., Ph.D., Director of Laboratories , CLIA [id number] SPECIMEN SOURCE BAL/BWASH MIX IN VTM 1 TO 1 RATIO, FRZ NEG 70 07/31/2022 2:31 PM CRYPTOLOGIC SUPERVISOR [facility] 07/30/2022 3:30 PM CRYPTOLOGIC SUPERVISOR [facility] MD MICROBIOLOGY - GENERAL ORDERABLES Final Result [facility] [address] [place] [address], [place] [id number] , [place] [phone] * CULTURE, QUANTITATIVE W/ GRAM STAIN (07/30/2022 3:30 PM CRYPTOLOGIC SUPERVISOR) [facility] SPEC DESCRIPTION SITE: BAL RLL 07/30/2022 5:04 PM CRYPTOLOGIC SUPERVISOR [facility] SPECIAL REQUESTS NO SPECIAL REQUEST 07/30/2022 5:04 PM CRYPTOLOGIC SUPERVISOR [facility] GRAM STAIN RESULT <10 NEUTROPHILS PER LPF 07/31/2022 4:41 AM CRYPTOLOGIC SUPERVISOR [facility] GRAM STAIN RESULT <10 EPITHELIAL CELLS PER LPF 07/31/2022 4:41 AM CRYPTOLOGIC SUPERVISOR [facility] GRAM STAIN RESULT RARE GRAM NEGATIVE RODS 07/31/2022 4:41 AM CRYPTOLOGIC SUPERVISOR [facility] CULTURE RESULT 500 CFU/ML YEAST , ID UPON REQUEST 08/02/2022 2:57 PM CRYPTOLOGIC SUPERVISOR [facility] SPECIMEN FROM UNSPECIFIED BODY SITE / Unknown 07/30/2022 3:30 PM CRYPTOLOGIC SUPERVISOR 07/30/2022 5:03 PM CRYPTOLOGIC SUPERVISOR Comment:BAL RLL Florencio Amaya MD MICROBIOLOGY - GENERAL ORDERABLE S Final Result [facility] [address] [place] [address], [id number] * CULTURE TB/AFB OTHER (07/30/2022 3:30 PM CRYPTOLOGIC SUPERVISOR) Pathologist [facility] SOURCE (QUINCY) SITE 07/30/2022 5:03 PM CRYPTOLOGIC SUPERVISOR [facility] Comment:BRONCH WASH CULTURE RESULT SEE NOTE 3 01:04 AM 09/13/2022 1:04 AM CRYPTOLOGIC SUPERVISOR [facility] Comment: Test ?Result ?Flag ??Unit ??RefValue Mycobacterial Culture ? SOURCE: BRONCHIAL WASHING, SITE BRONCH WASH MYCOBACTERIAL CULTURE ?FINAL No growth after 42 days of incubation. Test Performed by: [address] [address] Paleontology Teacher: Brent Alcaraz M.D. Ph.D.; CLIA# [id number] 07/30/2022 3:30 PM CRYPTOLOGIC SUPERVISOR Florencio Amaya MD MICROBIOLOGY - GENERAL ORDERABLE S Final Result Performing Organization Address [facility] Co de Phone Number [place] [phone] [facility] [address] [place] [address], [phone] * SMEAR,FLUOR STAIN,ACID FAST (07/30/2022 3:30 PM CRYPTOLOGIC SUPERVISOR) Pathologist [facility] ACID FAST SMEAR RESULT SEE NOTE 11:18 PM 08/01/2022 11:18 PM CRYPTOLOGIC SUPERVISOR [facility] Comment: Test ?Result ??Flag ??Unit ??RefValue Acid Fast Smear For Mycobacterium SOURCE: BRONCHIAL WASHING, BWASH/BAL MIX ACID FAST SMEAR FOR MYCOBACTERIUM ?FINAL Negative. Test Performed by: [place] [address] Paleontology Teacher: Brent Alcaraz M.D. Ph.D.; CLIA# [id number] 07/30/2022 3:30 PM CRYPTOLOGIC SUPERVISOR Florencio Amaya MD MICROBIOLOGY - GENERAL ORDERABLE S Final Result Performing Organization Address [facility]/ZIP Co de Phone Number [address] [address] * CULTURE RESPIRATORY W/ GRAM STAIN (07/30/2022 3:30 PM CRYPTOLOGIC SUPERVISOR) SPEC DESCRIPTION SITE: BRONCH WASH 07/30/2022 5:01 PM CRYPTOLOGIC SUPERVISOR [facility] SPECIAL REQUESTS NO SPECIAL REQUEST 07/30/2022 5:01 PM CRYPTOLOGIC SUPERVISOR [facility] GRAM STAIN RESULT MANY NEUTROPHILS SEEN 07/30/2022 8:16 PM CRYPTOLOGIC SUPERVISOR [facility] GRAM STAIN RESULT NO ORGANISMS SEEN 07/30/2022 8:16 PM CRYPTOLOGIC SUPERVISOR [facility] CULTURE RESULT FEW TETE ALBICANS 08/03/2022 12:28 PM CRYPTOLOGIC SUPERVISOR [facility] SPECIMEN FROM UNSPECIFIED BODY SITE / Unknown 07/30/2022 3:30 PM CRYPTOLOGIC SUPERVISOR 07/30/2022 5:00 PM CRYPTOLOGIC SUPERVISOR Comment:BRONCH WASH Florencio Amaya MD MICROBIOLOGY - GENERAL ORDERABLE S Final Result [facility] [address] [place] [address], [id number] * (ABNORMAL) CULTURE, FUNGUS (07/30/2022 3:30 PM CRYPTOLOGIC SUPERVISOR) SOURCE (QUINCY) SITE 07/30/2022 5:01 PM CRYPTOLOGIC SUPERVISOR [facility] Comment:BRONCH WASH CULTURE RESULT SEE NOTE 08:01 AM(A) 08/28/2022 8:01 AM CRYPTOLOGIC SUPERVISOR [facility] Comment: Test ?Result ?Flag ??Unit ??RefValue Fungal Culture, Routine ?A ? SOURCE: BRONCHIAL WASHING, SITE BRONCH WASH FUNGAL CULTURE, ROUTINE ?FINAL TETE ALBICANS ? Many NAKASEOMYCES (TETE) GLABRATA ??Few Test Performed by: [facility] [address] [place] [address] Paleontology Teacher: Brent Alcaraz M.D. Ph.D.; CLIA# [id number] 07/30/2022 3:30 PM CRYPTOLOGIC SUPERVISOR Florencio Amaya MD MICROBIOLOGY - GENERAL ORDERABLE S Final Result Performing Organization Address [facility] de Phone Number [facility] [address] [place] [address] [facility] [address] [place] [address], [phone] * Bronchoscopy (07/30/2022 2:41 PM CRYPTOLOGIC SUPERVISOR) Patti Pineda MD PROCEDURE/MINOR SURGIC AL ORDERABLES Final Result * Vancomycin Random Level (07/30/2022 6:17 AM CRYPTOLOGIC SUPERVISOR) VANCOMYCIN RANDOM 24.4 MCG/ML 07/30/2022 7:34 AM CRYPTOLOGIC SUPERVISOR [facility] Comment:REFERENCE RANGE NOT ESTABLISHED 07/30/2022 6:17 AM CRYPTOLOGIC SUPERVISOR Florencio Amaya MD LABORATORY Final Result Performing Organization Address [facility] de Phone Number [facility] [address] [place] [address], [place] [phone] [id number] * XR CHEST PORTABLE (07/30/2022 5:27 AM CRYPTOLOGIC SUPERVISOR) Anatomical Region Laterality Modality Chest Radiographic Jasmina ging 07/30/2022 8:33 AM CRYPTOLOGIC SUPERVISOR Impressions 07/30/2022 8:37 AM CRYPTOLOGIC SUPERVISOR IMPRESSION: 1) Interval decrease in small left pleural effusion and left basilar consolidation. No other significant change. Ordered By: RODNEY NOLASCO Interpreted By: Nigel Peña MD, 07/30/2022 8:33 AM Narrative 07/30/2022 8:37 AM CRYPTOLOGIC SUPERVISOR Examination: XR CHEST PORTABLE Exam time: 07/30/2022 [...] ult * CYTOLOGY GENERIC (07/30/2022 12:00 AM CRYPTOLOGIC SUPERVISOR) CYTOLOGY OTHER [facility] ? Department of Laboratory Medicine ?[address] ?[place] [address] ? , extension [phone] ? Pathology Report ? Non-gynecologic Cytology Report Name: JACQUEILNE RAY E ? Specimen #: [id number] Age: 9 1955 (Age: 67) ? Location: [id number] Sex: M ?Procedure Date: 07/30/2022 Hospital #: [id number] ?Date Received: 07/31/2022 Date Reported: 08/01/2022 Provider: [...] case was interpreted and signed out at [facility], [address] [place] [address], [place], [place], Former[facility]. FINAL DIAGNOSIS: LUNG, RIGHT LOWER LOBE, BRONCHOALVEOLAR [...] Electronically Signed Out ? GADIEL HANSON MD [facility] 07/30/2022 07/31/2022 12:13 PM CRYPTOLOGIC SUPERVISOR Comment:LUNG, RIGHT LOWER LO BE, BRONCHOALVEOLAR LAVAGE us Anna Us MD PATHOLOGY/CYTOLOGY ORDERABL ES Final Result [facility] [address] [place] [address], [phone] * CYTOLOGY GENERIC (07/30/2022 12:00 AM CRYPTOLOGIC SUPERVISOR) CYTOLOGY OTHER [facility] ? Department of Laboratory Medicine ?[address] ?[place] [address] ? , extension [phone] ? Pathology Report ? Non-gynecologic Cytology Report Name: RAY PHILLIPS ? Specimen #: [id number] Age: 9 1955 (Age: 67) ? Location: [facility] Sex: M ?Procedure Date: 07/30/2022 Hospital #: [id number] ?Date Received: 07/31/2022 Date Reported: 08/01/2022 Provider: PATTI PINEDA MD ?TRAYC YO MD ?FLORENCIO AMAYA MD ?LANRE WINTER MD ?DE VILLASENOR MD Source: LUNG, GENERAL AIRWAYS, BRONCHIAL WASHING Clinical History: Necrotizing pneumonia, smoking and asbestos exposure Gross Description: SPECIMEN RECEIVED: ? 11 cc's of cloudy mucoid fluid ? SLIDES PREPARED: ?1 ThinPrep and 1 cytospin ?STAINS: ? Papanicolaou, GMS This case was interpreted and signed out at [facility], [address] [place] [address], [place], [place], [id number]. FINAL DIAGNOSIS: LUNG, GENERAL AIRWAYS, BRONCHIAL WASHING: ? - SATISFACTORY FOR EVALUATION. ? - NEGATIVE FOR MALIGNANT CELLS. ? - ACUTE INFLAMMATION AND SCATTERED EPITHELIAL CELLS. ? - GMS STAIN DEMONSTRATES RARE FUNGAL HYPHAE OF UNCERTAIN SIGNIFICANCE. Electronically Signed Out ? GADIEL HANSON MD [facility] 07/30/2022 07/31/2022 12: 18 PM CRYPTOLOGIC SUPERVISOR Comment:LUNG, GENERAL AIRWAY S, BRONCHIAL WASHING us Anna Us MD PATHOLOGY/CYTOLOGY ORDERABL ES Final Result [facility] [address] [place] [address], [phone] * (ABNORMAL) CULTURE, FUNGUS (07/28/2022 2:25 PM CRYPTOLOGIC SUPERVISOR) SOURCE (QUINCY) SPUTUM 07/31/2022 1:36 PM CRYPTOLOGIC SUPERVISOR [facility] CULTURE RESULT SEE NOTE 08/28/2022 08:14 AM(A) 08/28/2022 8:14 AM CRYPTOLOGIC SUPERVISOR [facility] [address] Comment: Test ?Result ?Flag ??Unit ??RefValue Fungal Culture, Routine ?A ? SOURCE: SPUTUM Fungal specimen plated for culture, volume inadequate for optimal recovery. FUNGAL CULTURE, ROUTINE ?FINAL TETE ALBICANS ??Many Test Performed by: [place] [address] Paleontology Teacher: Brent Alcaraz M.D. Ph.D.; CLIA# [id number] SPUTUM / Unknown 07/28/2022 2:25 PM CRYPTOLOGIC SUPERVISOR us Tracy Yo MD MICROBIOLOGY - GENERA L ORDERABLES Edited Result - Final [address] [address] [facility] [address] [place] [address], [place] [phone] * CULTURE RESPIRATORY W/ GRAM STAIN (07/28/2022 2:25 PM CRYPTOLOGIC SUPERVISOR) SPEC DESCRIPTION SPUTUM, EXPECTORATED 07/28/2022 2:25 PM CRYPTOLOGIC SUPERVISOR [facility] SPECIAL REQUESTS NO SPECIAL REQUEST 07/28/2022 2:25 PM CRYPTOLOGIC SUPERVISOR [facility] GRAM STAIN RESULT >25 NEUTROPHILS PER LPF 07/28/2022 10:41 PM CRYPTOLOGIC SUPERVISOR [facility] GRAM STAIN RESULT <10 EPITHELIAL CELLS PER LPF 07/28/2022 10:41 PM CRYPTOLOGIC SUPERVISOR [facility] GRAM STAIN RESULT RARE BUDDING YEAST CELLS 07/28/2022 10:41 PM CRYPTOLOGIC SUPERVISOR [facility] GRAM STAIN RESULT RARE GRAM POSITIVE COCCI IN PAIRS 07/28/2022 10:41 PM CRYPTOLOGIC SUPERVISOR [facility] GRAM STAIN RESULT RARE GRAM NEGATIVE RODS 07/28/2022 10:41 PM CRYPTOLOGIC SUPERVISOR [facility] CULTURE RESULT FEW ALPHA STREPTOCOCCUS 07/29/2022 2:57 PM CRYPTOLOGIC SUPERVISOR [facility] CULTURE RESULT MODERATE PRESUMPTIVE TETE ALBICANS 07/29/2022 2:57 PM CRYPTOLOGIC SUPERVISOR [facility] SPUTUM SPECIMEN / Unknown 07/28/2022 2:25 PM CRYPTOLOGIC SUPERVISOR 07/28/2022 3:24 PM CRYPTOLOGIC SUPERVISOR Tracy Yo MD MICROBIOLOGY - GENERA L ORDERABLES Final Result [facility] [address] [place] [address], [id number] * US ABD LIMITED (07/28/2022 11:39 AM CRYPTOLOGIC SUPERVISOR) Anatomical Region Laterality Modality Abdomen Ultrasound 07/29/2022 6:03 AM CRYPTOLOGIC SUPERVISOR Impressions 07/29/2022 6:06 AM CRYPTOLOGIC SUPERVISOR IMPRESSION: 1. ??3 cysts in the spleen with the largest 2.1 cm. ??The smallest of the 3 cyst demonstrates thin internal septation but appears benign. ??No follow-up imaging is recommended. 2. ??Splenomegaly. Referred By: PROVIDER NON-STAFF Interpreted By: Karine Sher MD, 07/29/2022 6:03 AM Narrative 07/29/2022 6:06 AM CRYPTOLOGIC SUPERVISOR EXAM: Ultrasound abdomen limited spleen. Multiple transabdominal [...] By: Karine Sher MD, 07/29/2022 6:03 AM us Florencio Amaya MD ULTRASOUND Final Result * (ABNORMAL) CBC W/DIFF AUTOMATED (07/28/2022 7:03 AM CRYPTOLOGIC SUPERVISOR) WBC 13.5(H) 4.0 - 10.8 x10'3/uL 07/28/2022 7:39 AM [facility] RBC 2.51(L) 4.50 - 6.10 x10'6/uL 07/28/2022 7:39 AM [facility] HGB 8.3(L) 13.0 - 18.0 G/DL 07/28/2022 7:39 AM [facility] HCT 25.1(L) 37.0 - 52.0 % 07/28/2022 7:39 AM [facility] MCV 100.0 78.0 - 100.0 FL 07/28/2022 7:39 AM [facility] MCH 33.1(H) 27.0 - 31.0 PG 07/28/2022 7:39 AM [facility] MCHC 33.1 33.0 - 36.0 G/DL 07/28/2022 7:39 AM [facility] RDW 14.7(H) 11.5 - 14.5 % 07/28/2022 7:39 AM [facility] PLT 303 150 - 350 x10'3/uL 07/28/2022 7:39 AM [facility] MPV 10.1 7.4 - 10.4 FL 07/28/2022 7:39 AM [facility] ABS. NEUTROPHILS 11.61(H) 1.60 - 8.30 x10'3/uL 07/28/2022 8:06 AM [facility] ABS. NEUTROPHILS CALCULATED 11.07(H) 1.60 - 7.30 x10'3/uL 07/28/2022 8:06 AM [facility] BANDS 0.27 0.00 - 1.00 x10'3/uL 07/28/2022 8:06 AM [facility] ABS. LYMPHOCYTES 1.08 0.80 - 4.70 x10'3/uL 07/28/2022 8:06 AM [facility] ABS. MONOCYTES 0.81 0.00 - 1.50 x10'3/uL 07/28/2022 8:06 AM [facility] ABS. EOSINOPHILS 0.00 0.00 - 0.40 x10'3/uL 07/28/2022 8:06 AM [facility] ABS. BASOPHILS 0.00 0.00 - 0.20 x10'3/uL 07/28/2022 8:06 AM [facility] ABS. METAMYELOCYTES 0.27(H) 0.00 x10'3/uL 07/28/2022 8:06 AM [facility] ABS. NUCLEATED RBC'S 0.00 0.0 x10'3/uL 07/28/2022 8:06 AM [facility] RBC MORPHOLOGY POLYCHROMASIA 022 8:06 AM [facility] Comment:SLIGHT PLT MORPH. NORMAL 07/28/2022 8:06 AM [facility] 07/28/2022 7:03 AM CRYPTOLOGIC SUPERVISOR Florencio Amaya MD LABORATORY Final Result [facility] [address] [place] [address], [id number] * (ABNORMAL) BASIC METABOLIC PANEL (07/28/2022 7:03 AM CRYPTOLOGIC SUPERVISOR) SODIUM S/P/B 137 136 - 145 MMOL/L 07/28/2022 7:50 AM [facility] POTASSIUM S/P/B 4.0 3.5 - 5.1 MMOL/L 07/28/2022 7:50 AM [facility] CHLORIDE S/P/B 105 98 - 107 MMOL/L 07/28/2022 7:50 AM [facility] CO2 28.7 21.0 - 32.0 MMOL/L 07/28/2022 7:50 AM [facility] GLUCOSE 98 74 - 106 MG/DL 07/28/2022 7:50 AM CRYPTOLOGIC SUPERVISOR [facility] BUN 19(H) 7 - 18 MG/DL 07/28/2022 7:50 AM CRYPTOLOGIC SUPERVISOR [facility] CREATININE S/P/B 0.73 0.70 - 1.30 MG/DL 07/28/2022 7:50 AM [facility] CALCIUM S/P/B 7.9(L) 8.5 - 10.1 MG/DL 07/28/2022 7:50 AM CRYPTOLOGIC SUPERVISOR [facility] ANION GAP 3.3(L) 5.0 - 15.0 MMOL/L 07/28/2022 7:50 AM CRYPTOLOGIC SUPERVISOR [facility] OSMOLALITY (CALC) 286 MOSM/KG 022 7:50 AM [facility] Comment:REFERENCE RANGE NOT ESTABLISHED GFR ESTIMATE >90 >90 ML/MIN/1. 73 M2 07/28/2022 7:50 AM CRYPTOLOGIC SUPERVISOR [facility] GFR NOTES GFR REFERENCE S: 07/28/2022 7:50 AM [facility] Comment: THE ESTIMATED GFR IS CALCULATED [...] FAILURE: <15 ml/min/1.73 m2 07/28/2022 7:03 AM CRYPTOLOGIC SUPERVISOR Florencio Amaya MD LABORATORY Final Result [facility] [address] [place] [address], [id number] * Vancomycin Random Level (07/28/2022 7:03 AM CRYPTOLOGIC SUPERVISOR) VANCOMYCIN RANDOM 7.0 MCG/ML 07/28/2022 7:52 AM CRYPTOLOGIC SUPERVISOR [facility] Comment:REFERENCE RANGE NOT ESTABLISHED 07/28/2022 7:03 AM CRYPTOLOGIC SUPERVISOR Tarcy Yo MD LABORATORY Final Result [facility] [address] [place] [address], [place] [phone] * XR CHEST PORTABLE (07/28/2022 12:43 AM CRYPTOLOGIC SUPERVISOR) Anatomical Region Laterality Modality Chest Radiographic Jasmina ging 07/28/2022 1:18 AM CRYPTOLOGIC SUPERVISOR Impressions 07/28/2022 1:26 AM CRYPTOLOGIC SUPERVISOR IMPRESSION: 1. ??Right basilar pigtail catheter remains [...] 07/28/2022 1:18 AM Narrative 07/28/2022 1:26 AM CRYPTOLOGIC SUPERVISOR EXAMINATION: XR CHEST PORTABLE HISTORY:chest tube COMPARISON: [...] * XR CHEST PORTABLE (07/27/2022 4:22 PM CRYPTOLOGIC SUPERVISOR) Anatomical Region Laterality Modality Chest Radiographic Jasmina ging 07/27/2022 4:42 PM CRYPTOLOGIC SUPERVISOR Impressions 07/27/2022 4:44 PM CRYPTOLOGIC SUPERVISOR IMPRESSION: 1. Right-sided pigtail chest tube. 2. Bilateral pulmonary opacities. 3. Cardiomegaly. Pulmonary vascular congestion. Ordered By: RODNEY NOLASCO Interpreted By: Can Klein DO, 07/27/2022 4:42 PM Narrative 07/27/2022 4:44 PM CRYPTOLOGIC SUPERVISOR EXAMINATION: XR CHEST PORTABLE HISTORY: Chest tube [...] ult * USE ECHOCARDIOGRAM (07/27/2022 1:13 PM CRYPTOLOGIC SUPERVISOR) Anatomical Region Laterality Modality Cardiac Echocardiogram 07/27/2022 12:4 4 PM CRYPTOLOGIC SUPERVISOR Narrative 07/28/2022 6:32 AM CRYPTOLOGIC SUPERVISOR ?Echocardiography Report Pat.Name: ??RAY PHILLIPS ? Pat.ID: ?[id number] ? St.Date: ?? 07/27/2022 ? Refer.MD: ??[id number] NON-STAFF PROVIDER ?EWDPROV ?EWDPROV Exam Time: 12:44:00 PM ? Study Type:ECHO WITH CARDIAC DOPPLER COMP Height: ?165 cm ?Weight: ?68 kg ? BSA: ? 1.75 m2 ?Age: ??1955,67Y ? Sex: ? M ? BP: ?138/68 ? HR: ?70 bpm ?Sonogrphr: Avery Marie RDCS ? Pat. Stat.:Inpatient ? Room: ?742 ? CPT - 4: ?00066 ? Reason for Study:Pericardial effusion Procedures: 2D, [...] ?? Value ?229 g ? LV Mass [id number] ?? Value ?131 g/m2 ? Right Ventricle [...] Giles MD - 07/28/2022 Echocardiography Report Pat.Name: JACQUELINE RAY Noelle Pat.ID: [id number] .Date: 07/27/2022 Refer.MD: [id number] NON-STAFF PROVIDER EWDPROV EWDPROV Exam Time: 12:44:00 PM Study Type:ECHO WITH CARDIAC DOPPLER COMP Height: 165 cm Weight: 68 kg BSA: 1.75 m2 Age: 9 1955,67Y Sex: M BP: 138/68 HR: 70 bpm Sonogrphr: Avery Marie CJ Pat. Stat.:Inpatient Room: 742 CPT - 4: 18312 Reason for Study:Pericardial effusion Procedures: 2D, M-mode, [...] Mass 2D Value 229 g LV Mass [id number] Value 131 g/m2 Right Ventricle Right Ventricle [...] MIDLINE PLACEMENT GREATER 3YR (07/27/2022 11:20 AM CRYPTOLOGIC SUPERVISOR) Anatomical Region Laterality Modality Chest Interventional R adiology 07/27/2022 11:1 5 AM CRYPTOLOGIC SUPERVISOR Impressions 07/27/2022 11:23 AM CRYPTOLOGIC SUPERVISOR Impression: Successful image guided left basilic vein inserted midline line venous catheter. Plan: 1. ??Left midline venous catheter okay for immediate use. 2. ??IR follow-up as needed. Thank you for allowing [facility] to assist in this patient's care! Ordered By: TRACY YO Interpreted By: Reji Cantrell MD, 07/27/2022 11:15 AM Narrative 07/27/2022 11:23 AM CRYPTOLOGIC SUPERVISOR IR MIDLINE VENOUS CATHETER PLACEMENT Pre op diagnosis: . IV access required. Midline requested. Post Op Diagnosis: same Procedure: Midline venous catheter placement. Grafts/Implants: 4 Greek midline venous catheter Interventional Radiologist: Óscar Teachers Aide: ANSON Keating tech Anesthesia: Local - 1% [...] centrally. Peel-away sheath was placed. A 4 Greek single lumen midline, 20 cm. This was [...] Procedure: Midline venous catheter placement. Grafts/Implants: 4 Greek midline venous catheter Interventional Radiologist: Óscar Teachers Aide: ANSON Keating tech Anesthesia: Local - 1% [...] advancedcentrally. Peel-away sheath was placed. A 4 Greek single lumen midline,20 cm. This was advanced [...] By: Reji Cantrell MD, 07/27/2022 11:15 AM us Tracy Yo MD INTERVENTIONAL RADIOL OGY Final Result * CT GD CHEST TUBE INSERT RT (07/27/2022 10:57 AM CRYPTOLOGIC SUPERVISOR) Anatomical Region Laterality Modality Chest Computed Tomogra phy 07/27/2022 12:0 5 PM CRYPTOLOGIC SUPERVISOR Impressions 07/27/2022 12:13 PM CRYPTOLOGIC SUPERVISOR IMPRESSION: Successful CT-guided right thoracostomy tube placement as described. The stopcock will initially be left in the closed position for fibrinolytic 4 hour dwell time. The tube will then be placed to low wall suction. Output and serial radiographs will be monitored to determine further management. Ordered By: FLORENCIO AMAYA Interpreted By: Raul Osuna MD, 07/27/2022 12:05 PM Narrative 07/27/2022 12:13 PM CRYPTOLOGIC SUPERVISOR PROCEDURE: CT-guided right thoracostomy tube placement Indication: Necrotizing pneumonia with loculated hydropneumothorax Physicians: Raul Osuna M.D. (attending); Rodney Nolacso M.D. (resident) Following informed consent, including discussion of procedural risks, the patient was place in the left lateral decubitus position on the CT table and [place] protocol was observed to verify correct patient, [...] CT. The tract was dilated to 12 Greek. During dilation, there was temporary retraction of the wire resulting in slight kinking and difficulty advancing the tube. Access was again regained using the one-step sheath needle, followed again by CT confirmation of position, wire placement, and tract dilation. A 12-Greek pigtail drainage catheter with the locking stitch [...] lateral decubitus position on the CT tableand [place] protocol was observed to verify correct patient, [...] by CT. The tractwas dilated to 12 Greek. During dilation, there was temporary retractionof the wire resulting in slight kinking and difficulty advancing the tube.Access was again regained using the one-step sheath needle, followed againby CT confirmation of position, wire placement, and tract dilation. [id number] pigtail drainage catheter with the locking stitch [...] Result * CULTURE, ANAEROBIC (07/27/2022 10:30 AM CRYPTOLOGIC SUPERVISOR) SPEC DESCRIPTION SITE: RT PLEURAL FLUID 07/27/2022 12:59 PM CRYPTOLOGIC SUPERVISOR [facility] SPECIAL REQUESTS NO SPECIAL REQUEST 07/27/2022 12:59 PM CRYPTOLOGIC SUPERVISOR [facility] CULTURE RESULT FEW MICROAEROPHILIC STREPTOCOCCUS 07/30/2022 5:41 PM CRYPTOLOGIC SUPERVISOR [facility] SPECIMEN FROM UNSPECIFIED BODY SITE / Unknown 07/27/2022 10:30 AM CRYPTOLOGIC SUPERVISOR 07/27/2022 12:08 PM CRYPTOLOGIC SUPERVISOR Comment:RT PLEURAL FLUID Narrative Organism Antibiotic Method Susceptibility Microaerophilic streptococcus CEFOTAXIME ARLEN (ETEST) 0.023: Sensitive Microaerophilic streptococcus PENICILLIN G ARLEN (ETEST) 0.008: Sensitive Florencio Amaya MD MICROBIOLOGY - GENERAL ORDERABLE S Final Result [facility] [address] [place] [address], [id number] * CULTURE, BODY FLUID W/ GRAM STAIN (07/27/2022 10:30 AM CRYPTOLOGIC SUPERVISOR) SPEC DESCRIPTION PLEURAL FLUID: RT 07/27/2022 12:09 PM CRYPTOLOGIC SUPERVISOR [facility] SPECIAL REQUESTS NO SPECIAL REQUEST 07/27/2022 12:09 PM CRYPTOLOGIC SUPERVISOR [facility] GRAM STAIN RESULT MANY NEUTROPHILS SEEN 07/27/2022 4:31 PM CRYPTOLOGIC SUPERVISOR [facility] GRAM STAIN RESULT NO ORGANISMS SEEN 07/27/2022 4:31 PM CRYPTOLOGIC SUPERVISOR [facility] CULTURE RESULT RARE STAPHYLOCOCCUS EPIDERMIDIS 07/31/2022 7:51 AM CRYPTOLOGIC SUPERVISOR [facility] PLEURAL FLUID SPECIMEN / Unknown 07/27/2022 10:30 AM CRYPTOLOGIC SUPERVISOR 07/27/2022 12:08 PM CRYPTOLOGIC SUPERVISOR Comment:RT Narrative Organism Antibiotic Method Susceptibility Staphylococcus epidermidis CLINDAMYCIN ARLEN (VITEK) Sensitive Staphylococcus epidermidis ERYTHROMYCIN ARLEN (VITEK) Sensitive Staphylococcus epidermidis GENTAMICIN ARLEN (VITEK) Sensitive Staphylococcus epidermidis OXACILLIN ARLEN (VITEK) Sensitive Staphylococcus epidermidis PENICILLIN G ARLEN (VITEK) Resistant Staphylococcus epidermidis RIFAMPIN ARLEN (VITEK) Sensitive Staphylococcus epidermidis TRIMETH-SULFAMETH. ARLEN (VIT EK) Resistant Staphylococcus epidermidis TETRACYCLINE ARLEN (VITEK) Sensitive Staphylococcus epidermidis VANCOMYCIN ARLEN (VITEK) Sensitive us Florencio Amaya MD MICROBIOLOGY - GENERAL ORDERABLE S Final Result Performing Organization Address [facility]/ZIP Co de Phone Number [facility] [address] [place] [address], [place] [phone] * PROTEIN TOTAL FLUID (07/27/2022 10:30 AM CRYPTOLOGIC SUPERVISOR) PROTEIN (FLUID) 3.5 G/DL 3:22 PM CRYPTOLOGIC SUPERVISOR [facility] Comment:REFERENCE RANGE NOT ESTABLISHED FOR THIS BODY FLUID. SOURCE (FLUID) PLEURAL FLUID 07/27/2022 10:53 AM CRYPTOLOGIC SUPERVISOR [facility] PLEURAL FLUID SPECIMEN / Unknown 07/27/2022 10:30 AM CRYPTOLOGIC SUPERVISOR Tracy Yo MD BODY FLUIDS AND STOOL S ORDERABLES Final Result Performing Organization Address [facility] Co de Phone Number [facility] [address] [place] [address], [place] [phone] * CELL COUNT W/ DIFF BODY FLUID (07/27/2022 10:30 AM CRYPTOLOGIC SUPERVISOR) Pathologist [facility] SOURCE (FLUID) PLEURAL FLUID 022 3:08 PM CRYPTOLOGIC SUPERVISOR [facility] WBC (FLUID) 144.450 x10'3/uL 07/27/2022 3:08 PM CRYPTOLOGIC SUPERVISOR [facility] Comment:REFERENCE RANGE NOT ESTABLISHED RBC (FLUID) 0.090 x10'6/uL 07/27/2022 3:08 PM CRYPTOLOGIC SUPERVISOR [facility] Comment:REFERENCE RANGE NOT ESTABLISHED DIFFERENTIAL MANUAL DIFFERENTIAL PERFORMED ON CONCENTRATED CYTOSPIN 07/27/2022 10:53 AM [facility] CELLS COUNTED 100 No COUNTED 07/27/2022 3:45 PM CRYPTOLOGIC SUPERVISOR [facility] SEGS (FLUID) 97 % 07/27/2022 3:45 PM [facility] LYMPHS (FLUID) 3 % 07/27/2022 3:45 PM CRYPTOLOGIC SUPERVISOR [facility] PLEURAL FLUID SPECIMEN / Unknown 07/27/2022 10:30 AM CRYPTOLOGIC SUPERVISOR us Tracy Yo MD BODY FLUIDS AND STOOL S ORDERABLES Final Result Performing Organization Address [facility] de Phone Number [facility] [address] [place] [address], [place] [phone] * LDH BODY FLUID (07/27/2022 10:30 AM CRYPTOLOGIC SUPERVISOR) LDH (FLUID) >4,000 UNITS/L 07/27/2022 3:22 PM CRYPTOLOGIC SUPERVISOR [facility] Comment:REFERENCE RANGE NOT ESTABLISHED FOR THIS BODY FLUID. SOURCE (FLUID) PLEURAL FLUID 07/27/2022 10:53 AM CRYPTOLOGIC SUPERVISOR [facility] PLEURAL FLUID SPECIMEN / Unknown 07/27/2022 10:30 AM CRYPTOLOGIC SUPERVISOR us Tracy Yo MD BODY FLUIDS AND STOOL S ORDERABLES Final Result Performing Organization Address [facility] de Phone Number [facility] [address] [place] [address], [place] [phone] * TRANSFUSE RED BLOOD CELLS (07/27/2022 7:04 AM CRYPTOLOGIC SUPERVISOR) us Florencio Amaya MD NURSING TREATMENT ORDERABLES - B LOOD ADMIN Final Result * TRANSFUSE RED BLOOD CELLS, 1 Units (07/27/2022 7:04 AM CRYPTOLOGIC SUPERVISOR) us Florencio Amaya MD NURSING TREATMENT ORDERABLES - B LOOD ADMIN Final Result * (ABNORMAL) BMP WITHOUT GLUCOSE (07/27/2022 2:40 AM CRYPTOLOGIC SUPERVISOR) SODIUM S/P/B 138 136 - 145 MMOL/L 07/27/2022 3:30 AM CRYPTOLOGIC SUPERVISOR [facility] POTASSIUM S/P/B 3.7 3.5 - 5.1 MMOL/L 07/27/2022 3:30 AM CRYPTOLOGIC SUPERVISOR [facility] CHLORIDE S/P/B 106 98 - 107 MMOL/L 07/27/2022 3:30 AM [facility] CO2 26.0 21.0 - 32.0 MMOL/L 07/27/2022 3:30 AM [facility] BUN 22(H) 7 - 18 MG/DL 07/27/2022 3:30 AM [facility] CREATININE S/P/B 0.91 0.70 - 1.30 MG/DL 07/27/2022 3:30 AM [facility] CALCIUM S/P/B 8.2(L) 8.5 - 10.1 MG/DL 07/27/2022 3:30 AM [facility] ANION GAP 6.0 5.0 - 15.0 MMOL/L 07/27/2022 3:30 AM [facility] GFR ESTIMATE >90 >90 ML/MIN/1. 73 M2 07/27/2022 3:30 AM [facility] GFR NOTES GFR REFERENCE S: 07/27/2022 3:30 AM [facility] Comment: THE ESTIMATED GFR IS CALCULATED [...] FAILURE: <15 ml/min/1.73 m2 07/27/2022 2:40 AM CRYPTOLOGIC SUPERVISOR Florencio Amaya MD LABORATORY Final Result [facility] [address] [place] [address], [phone] * (ABNORMAL) CBC W/DIFF AUTOMATED (07/27/2022 2:40 AM CRYPTOLOGIC SUPERVISOR) [facility] WBC 21.3(H) 4.0 - 10.8 x10'3/uL 07/27/2022 3:07 AM [facility] RBC 1.98(L) 4.50 - 6.10 x10'6/uL 07/27/2022 3:07 AM [facility] HGB 6.5(LL) 13.0 - 18.0 G/DL 07/27/2022 3:07 AM [facility] Comment: CRITICAL RESULT, SPECIMEN DATE, TIME WERE READ BACK BY ALANNAH LINCOLN @0307 07.27.22 BY JOSÉ MIGUEL HCT 20.2(L) 37.0 - 52.0 % 07/27/2022 3:07 AM [facility] MCV 102.0(H) 78.0 - 100.0 FL 07/27/2022 3:07 AM [facility] MCH 32.8(H) 27.0 - 31.0 PG 07/27/2022 3:07 AM [facility] MCHC 32.2(L) 33.0 - 36.0 G/DL 07/27/2022 3:07 AM [facility] RDW 14.2 11.5 - 14.5 % 07/27/2022 3:07 AM [facility] PLT 347 150 - 350 x10'3/uL 07/27/2022 3:07 AM [facility] MPV 10.4 7.4 - 10.4 FL 07/27/2022 3:07 AM [facility] ABS. NEUTROPHILS 20.24(H) 1.60 - 8.30 x10'3/uL 07/27/2022 3:25 AM [facility] ABS. NEUTROPHILS CALCULATED 19.17(H) 1.60 - 7.30 x10'3/uL 07/27/2022 3:25 AM CRYPTOLOGIC SUPERVISOR [facility] ABS. LYMPHOCYTES 0.85 0.80 - 4.70 x10'3/uL 07/27/2022 3:25 AM CRYPTOLOGIC SUPERVISOR [facility] ABS. MONOCYTES 0.21 0.00 - 1.50 x10'3/uL 07/27/2022 3:25 AM CRYPTOLOGIC SUPERVISOR [facility] ABS. EOSINOPHILS 0.00 0.00 - 0.40 x10'3/uL 07/27/2022 3:25 AM CRYPTOLOGIC SUPERVISOR [facility] ABS. BASOPHILS 0.00 0.00 - 0.20 x10'3/uL 07/27/2022 3:25 AM CRYPTOLOGIC SUPERVISOR [facility] ABS. METAMYELOCYTES 0.64(H) 0.00 x10'3/uL 07/27/2022 3:25 AM CRYPTOLOGIC SUPERVISOR [facility] ABS. MYELOCYTES 0.21(H) 0.00 x10'3/uL 07/27/2022 3:25 AM CRYPTOLOGIC SUPERVISOR [facility] ABS. PROMYELOCYTES 0.21(H) 0.00 x10'3/uL 07/27/2022 3:25 AM [facility] ABS. NUCLEATED RBC'S 0.00 0.0 x10'3/uL 07/27/2022 3:25 AM [facility] RBC MORPHOLOGY POLYCHROMASIA 022 3:25 AM CRYPTOLOGIC SUPERVISOR [facility] Comment: SLIGHT ANISOCYTOSIS SLIGHT MACROCYTOSIS SLIGHT PLT MORPH. NORMAL 07/27/2022 3:25 AM [facility] 07/27/2022 2:40 AM CRYPTOLOGIC SUPERVISOR Florencio Amaya MD LABORATORY Final Result [facility] [address] [place] [address], [id number] * (ABNORMAL) PROCALCITONIN (PCT) (07/26/2022 12:55 PM CRYPTOLOGIC SUPERVISOR) Procalcitonin 1.83(H) <0.50 NG/ML 07/27/2022 9:06 AM CRYPTOLOGIC SUPERVISOR [facility] 07/26/2022 12:5 5 PM CRYPTOLOGIC SUPERVISOR Patel Kelsey MD LABORATORY Final Result [facility] [address] [place] [address], [id number] * BLASTOMYCES AB PANEL, (CF, ID) (07/26/2022 12:55 PM CRYPTOLOGIC SUPERVISOR) BLASTOMYCES AB FIXATION <1:8 <1:8 08/02/2022 5:09 PM CRYPTOLOGIC SUPERVISOR [facility] Comment: Interpretive Criteria: ? <1:8 [...] analytical performance characteristics have been determined by [employer] [place], [place]. It has not been cleared or approved by the U.S. Food and Drug Administration. This assay has been validated pursuant to the CLIA regulations and is used for clinical purposes. BLASTO IMMUNODIFFUSION Negative Negative 08/02/2022 5:09 PM CRYPTOLOGIC SUPERVISOR [employer] Comment: ?Interpretive Criteria: ?? Negative: Antibody not detected ?? Positive: Antibody detected A positive result is diagnostic of active or recent blastomycosis and is found in approximately 80% of proven cases of blastomycosis. Test Performed by [email or web address], [employer] [place], [address] [place], [place] Adrián Balderas M.D., Ph.D., Director of Laboratories , CLIA [id number] 07/26/2022 12:5 5 PM CRYPTOLOGIC SUPERVISOR Sergio Raza MD LABORATORY Final Result [facility] [id number] [place], [place] , * HISTOPLASMA ANTIBODY PANEL (CF,IM) (07/26/2022 12:55 PM CRYPTOLOGIC SUPERVISOR) HISTOPLASMA YEAST AB <1:8 <1:8 08/02/2022 5:09 PM CRYPTOLOGIC SUPERVISOR [facility] HISTOPLASMA MYCELIAL AB <1:8 <1:8 08/02/2022 5:09 PM CRYPTOLOGIC SUPERVISOR [facility] Comment: Interpretive Criteria: ? <1:8 - Antibody [...] analytical performance characteristics have been determined by [employer] [place]. It has not been cleared or approved by the FDA. This assay has been validated pursuant to the CLIA regulations and is used for clinical purposes. HISTOPLASMA CAPSULATUM H AB Negative Negative 08/02/2022 5:09 PM CRYPTOLOGIC SUPERVISOR [facility] Comment: This immunodiffusion assay is highly specific [...] the diagnosis of histoplasmosis. Test Performed by [facility] [place], [facility], [address] [place] [address] Adrián Balderas M.D., Ph.D., Director of Laboratories , [place] [id number] HISTOPLASMA CAPSULATUM M AB Negative Negative 08/02/2022 5:09 PM CRYPTOLOGIC SUPERVISOR [employer] 07/26/2022 12:5 5 PM CRYPTOLOGIC SUPERVISOR Sergio Raza MD LABORATORY Final Result Performing Organization Address City/[facility]/ZIP Co de Phone Number [employer] [address] , [place] [phone] * (ABNORMAL) HEMOGLOBIN AND HEMATOCRIT (07/26/2022 12:55 PM CRYPTOLOGIC SUPERVISOR) HGB 7.1(L) 13.0 - 18.0 G/DL 07/26/2022 1:14 PM CRYPTOLOGIC SUPERVISOR [facility] HCT 21.5(L) 37.0 - 52.0 % 07/26/2022 1:14 PM CRYPTOLOGIC SUPERVISOR [facility] 07/26/2022 12:5 5 PM CRYPTOLOGIC SUPERVISOR Tracy Yo MD LABORATORY Final Result [facility] [address] [place] [address], [place] [phone] [id number] * BLOOD SMEAR INTERPRETATION BY (07/26/2022 9:04 AM CRYPTOLOGIC SUPERVISOR) CBC PATHOLOGIST COMMENT DUPLICATE. SAME TEST ORDERED BY DIFFERENT DOCTORS. 07/26/2022 11:20 AM CRYPTOLOGIC SUPERVISOR [facility] Comment: CORRECTED ON 07/26 AT 1120: Previously reported as SENT TO PATHOLOGIST FOR REVIEW 07/26/2022 9:04 AM CRYPTOLOGIC SUPERVISOR us Florencio Amaya MD LABORATORY Edited Result - Final Performing Organization Address [facility] de Phone Number [facility] [address] [place] [address], [id number] * (ABNORMAL) HAPTOGLOBIN, QUANT (07/26/2022 9:04 AM CRYPTOLOGIC SUPERVISOR) HAPTOGLOBIN 412.0(H) 30.0 - 200.0 MG/DL 07/26/2022 9:55 AM CRYPTOLOGIC SUPERVISOR [facility] 07/26/2022 9:04 AM CRYPTOLOGIC SUPERVISOR us Florencio Amaya MD LABORATORY Final Result Performing Organization Address [facility] de Phone Number [facility] [address] [place] [address], [place] [phone] * XR CHEST PORTABLE (07/26/2022 6:55 AM CRYPTOLOGIC SUPERVISOR) Anatomical Region Laterality Modality Chest Radiographic Jasmina ging 07/26/2022 7:27 AM CRYPTOLOGIC SUPERVISOR Impressions 07/26/2022 7:29 AM CRYPTOLOGIC SUPERVISOR IMPRESSION: Loculated effusion on the right. ??Bilateral pulmonary opacifications due to atelectasis or infiltrate greatest in the right lower lung and throughout the left lung. Left effusion. Referred By: PROVIDER NON-STAFF Interpreted By: Rudy Montaño MD, 07/26/2022 7:27 AM Narrative 07/26/2022 7:29 AM CRYPTOLOGIC SUPERVISOR Procedure(s): XR CHEST PORTABLE Date of service: [...] By: Rudy Montaño MD, 07/26/2022 7:27 AM us Davie Prabhakar MD GENERAL IMAGING Final Result * (ABNORMAL) C-REACTIVE PROTEIN (07/26/2022 2:38 AM CRYPTOLOGIC SUPERVISOR) C-REACTIVE PROTEIN 12.30(H) <0.80 mg/dL 07/26/2022 3:37 AM CRYPTOLOGIC SUPERVISOR [facility] 07/26/2022 2:38 AM CRYPTOLOGIC SUPERVISOR Tracy Yo MD LABORATORY Final Result [facility] [address] [place] [address], [place] [phone] [id number] * (ABNORMAL) SED RATE, ERYTHROCYTE (ESR,WSR) (07/26/2022 2:38 AM CRYPTOLOGIC SUPERVISOR) Pathologist [facility] ESR 45(H) 0 - 15 MM/HR 07/26/2022 3:27 AM CRYPTOLOGIC SUPERVISOR [facility] 07/26/2022 2:38 AM CRYPTOLOGIC SUPERVISOR Tracy Yo MD LABORATORY Final Result [facility] [address] [place] [address], [phone] * (ABNORMAL) ARTERIAL BLOOD GAS (07/26/2022 2:38 AM CRYPTOLOGIC SUPERVISOR) Pathologist [facility] PH ARTERIAL 7.43 7.35 - 7.45 07/26/2022 3:01 AM [facility] PCO2 37.3 35.0 - 45.0 MMHG 07/26/2022 3:01 AM [facility] PO2 71.8(L) 83.0 - 108.0 MMHG 07/26/2022 3:01 AM [facility] BICARB ARTERIAL 24.1 22 - 26 MMOL/L 07/26/2022 3:01 AM [facility] TCO2 25.3 23 - 27 MMOL/L 07/26/2022 3:01 AM [facility] BE/BASE EXCESS 0.4 0 - 2 MMOL/L 07/26/2022 3:01 AM [facility] O2 Saturation 93(L) 95 - 98 % 07/26/2022 3:01 AM [facility] 07/26/2022 2:38 AM CRYPTOLOGIC SUPERVISOR Ann Hammond NP LABORATORY Final Result [facility] [address] [place] [address], [id number] * (ABNORMAL) CBC W/DIFF AUTOMATED (07/26/2022 2:38 AM CRYPTOLOGIC SUPERVISOR) [facility] WBC 17.5(H) 4.0 - 10.8 x10'3/uL 07/26/2022 3:40 AM CRYPTOLOGIC SUPERVISOR [facility] RBC 2.26(L) 4.50 - 6.10 x10'6/uL 07/26/2022 3:40 AM [facility] HGB 7.6(L) 13.0 - 18.0 G/DL 07/26/2022 3:40 AM [facility] HCT 22.9(L) 37.0 - 52.0 % 07/26/2022 3:40 AM [facility] MCV 101.3(H) 78.0 - 100.0 FL 07/26/2022 3:40 AM CRYPTOLOGIC SUPERVISOR [facility] MCH 33.6(H) 27.0 - 31.0 PG 07/26/2022 3:40 AM CRYPTOLOGIC SUPERVISOR [facility] MCHC 33.2 33.0 - 36.0 G/DL 07/26/2022 3:40 AM [facility] RDW 13.8 11.5 - 14.5 % 07/26/2022 3:40 AM CRYPTOLOGIC SUPERVISOR [facility] PLT 283 150 - 350 x10'3/uL 07/26/2022 3:40 AM [facility] MPV 10.6(H) 7.4 - 10.4 FL 07/26/2022 3:40 AM [facility] ABS. NEUTROPHILS 16.80(H) 1.60 - 8.30 x10'3/uL 07/26/2022 4:48 AM [facility] ABS. NEUTROPHILS CALCULATED 16.45(H) 1.60 - 7.30 x10'3/uL 07/26/2022 4:48 AM [facility] BANDS 0.18 0.00 - 1.00 x10'3/uL 07/26/2022 4:48 AM CRYPTOLOGIC SUPERVISOR [facility] ABS. LYMPHOCYTES 0.53(L) 0.80 - 4.70 x10'3/uL 07/26/2022 4:48 AM [facility] ABS. MONOCYTES 0.18 0.00 - 1.50 x10'3/uL 07/26/2022 4:48 AM CRYPTOLOGIC SUPERVISOR [facility] ABS. EOSINOPHILS 0.00 0.00 - 0.40 x10'3/uL 07/26/2022 4:48 AM [facility] ABS. BASOPHILS 0.00 0.00 - 0.20 x10'3/uL 07/26/2022 4:48 AM [facility] ABS. MYELOCYTES 0.18(H) 0.00 x10'3/uL 07/26/2022 4:48 AM [facility] ABS. NUCLEATED RBC'S 0.18(H) 0.0 x10'3/uL 07/26/2022 4:48 AM [facility] RBC MORPHOLOGY POLYCHROMASIA 022 4:48 AM [facility] Comment: SLIGHT POIKILOCYTOSIS SLIGHT WBC MORPHOLOGY HYPERSEGMENTATION 4:48 AM [facility] Comment: TOXIC GRANULATION VACUOLATED NEUTROPHILS PLT MORPH. NORMAL 07/26/2022 4:48 AM [facility] 07/26/2022 2:38 AM CRYPTOLOGIC SUPERVISOR Ann Hammond NP LABORATORY Final Result [facility] [address] [place] [address], [id number] * (ABNORMAL) LDH, LACTATE DEHYDROGENASE (07/26/2022 2:38 AM CRYPTOLOGIC SUPERVISOR) LDH 265(H) 87 - 241 UNITS/L 07/26/2022 3:37 AM [facility] Comment:RESULT QUESTIONABLE DUE TO HEMOLYSIS, RECOMMEND RECOLLECTION. 07/26/2022 2:38 AM CRYPTOLOGIC SUPERVISOR Tracy Yo MD LABORATORY Final Result [facility] [address] [place] [address], [id number] * (ABNORMAL) COMPREHENSIVE METABOLIC PANEL (07/26/2022 2:38 AM CRYPTOLOGIC SUPERVISOR) Pathologist [facility] SODIUM S/P/B 135(L) 136 - 145 MMOL/L 07/26/2022 3:37 AM [facility] POTASSIUM S/P/B 4.5 3.5 - 5.1 MMOL/L 07/26/2022 3:37 AM [facility] Comment:SLIGHT HEMOLYSIS, RE SULT MAY BE AFFECTED. CHLORIDE S/P/B 105 98 - 107 MMOL/L 07/26/2022 3:37 AM [facility] CO2 26.8 21.0 - 32.0 MMOL/L 07/26/2022 3:37 AM [facility] GLUCOSE 137(H) 74 - 106 MG/DL 07/26/2022 3:37 AM [facility] BUN 15 7 - 18 MG/DL 07/26/2022 3:37 AM [facility] CREATININE S/P/B 0.66(L) 0.70 - 1.30 MG/DL 07/26/2022 3:37 AM [facility] CALCIUM S/P/B 8.1(L) 8.5 - 10.1 MG/DL 07/26/2022 3:37 AM [facility] BILIRUBIN TOTAL S/P/B 0.2 0.2 - 1.0 MG/DL 07/26/2022 3:37 AM [facility] ALKALINE PHOSPHATASE S/P/B 60 45 - 115 U/L 07/26/2022 3:37 AM [facility] AST 19 15 - 37 U/L 07/26/2022 3:37 AM [facility] ALT 20 16 - 61 U/L 07/26/2022 3:37 AM [facility] TOTAL PROTEIN S/P/B 5.3(L) 6.4 - 8.2 G/DL 07/26/2022 3:37 AM [facility] ALBUMIN S/P/B 1.5(L) 3.4 - 5.0 G/DL 07/26/2022 3:37 AM [facility] ANION GAP 3.2(L) 5.0 - 15.0 MMOL/L 07/26/2022 3:37 AM [facility] OSMOLALITY (CALC) 283 MOSM/KG 022 3:37 AM [facility] Comment:REFERENCE RANGE NOT ESTABLISHED GFR ESTIMATE >90 >90 ML/MIN/1. 73 M2 07/26/2022 3:37 AM [facility] GFR NOTES GFR REFERENCE S: 07/26/2022 3:37 AM [facility] Comment: THE ESTIMATED GFR IS CALCULATED [...] FAILURE: <15 ml/min/1.73 m2 07/26/2022 2:38 AM CRYPTOLOGIC SUPERVISOR us Tracy Yo MD LABORATORY Final Result [facility] [address] [place] [address], [id number] * CTA CHEST+ABD+PEL (07/26/2022 12:32 AM CRYPTOLOGIC SUPERVISOR) Anatomical Region Laterality Modality Chest, Abdomen, Pelvis Computed Tomography 07/26/2022 12:5 6 AM CRYPTOLOGIC SUPERVISOR Impressions 07/26/2022 1:23 AM CRYPTOLOGIC SUPERVISOR IMPRESSION: 1. ??Air-fluid level within loculated fluid [...] 07/26/2022 12:56 AM Narrative 07/26/2022 1:23 AM CRYPTOLOGIC SUPERVISOR EXAMINATION: 1. ??CTA Chest with Intravenous Contrast, [...] (ABNORMAL) RETICULOCYTE CT, AUTO (07/25/2022 8:56 PM CRYPTOLOGIC SUPERVISOR) % RETICULOCYTE COUNT 4.0(H) 0.7 - 2.3 % 07/25/2022 9:04 PM CRYPTOLOGIC SUPERVISOR [facility] ABSOLUTE RETICULOCYTE 0.09 0.03 - 0.11 x10'6/uL 07/25/2022 9:04 PM CRYPTOLOGIC SUPERVISOR [facility] IMMATURE RETIC FRACTION 31.8(H) 2.3 - 13.4 % 07/25/2022 9:04 PM CRYPTOLOGIC SUPERVISOR [facility] RETIC HGB 31.9 28.0 - 35.0 PG 07/25/2022 9:04 PM CRYPTOLOGIC SUPERVISOR [facility] 07/25/2022 8:56 PM CRYPTOLOGIC SUPERVISOR Tracy Yo MD LABORATORY Final Result Performing Organization Address [facility] Co de Phone Number [facility] [address] [place] [address], [id number] * (ABNORMAL) HEMOGLOBIN AND HEMATOCRIT (07/25/2022 8:56 PM CRYPTOLOGIC SUPERVISOR) HGB 7.5(L) 13.0 - 18.0 G/DL 07/25/2022 9:04 PM CRYPTOLOGIC SUPERVISOR [facility] HCT 23.2(L) 37.0 - 52.0 % 07/25/2022 9:04 PM CRYPTOLOGIC SUPERVISOR [facility] 07/25/2022 8:56 PM CRYPTOLOGIC SUPERVISOR Tracy Yo MD LABORATORY Final Result Performing Organization Address [facility] Co de Phone Number [facility] [address] [place] [address], [place] [phone] * STREP PNEUMO AG URINE (07/25/2022 8:31 PM CRYPTOLOGIC SUPERVISOR) S. PNEUMONIAE URINARY AG NEGATIVE NEGATIVE 07/26/2022 2:26 PM CRYPTOLOGIC SUPERVISOR [facility] Comment: PRESUMPTIVE NEGATIVE FOR PNEUMOCOCCAL PNEUMONIA, SUGGESTING NO CURRENT OR RECENT PNEUMOCOCCAL INFECTION. INFECTION DUE TO STREPTOCOCCUS PNEUMONIA CANNOT BE RULED OUT SINCE THE ANTIGEN PRESENT IN THE SAMPLE MAY BELOW THE DETECTION LIMIT OF THE TEST. SPECIMEN TYPE URINE VOIDED 8:31 PM CRYPTOLOGIC SUPERVISOR [facility] URINE SPECIMEN FROM URETHRA / Unknown 07/25/2022 8:31 PM CRYPTOLOGIC SUPERVISOR us Tracy Yo MD MICROBIOLOGY - GENERA L ORDERABLES Final Result Performing Organization Address [facility] de Phone Number [facility] [address] [place] [address], [id number] * LEGIONELLA AG URINE (07/25/2022 8:31 PM CRYPTOLOGIC SUPERVISOR) LEGIONELLA ANTIGEN (URINE) NEGATIVE NEGATIVE 07/26/2022 2:26 PM CRYPTOLOGIC SUPERVISOR [facility] Comment: PRESUMPTIVE NEGATIVE FOR L. [...] URINE SPECIMEN / Unknown 07/25/2022 8:31 PM CRYPTOLOGIC SUPERVISOR us Tracy Yo MD MICROBIOLOGY - GENERA L ORDERABLES Final Result Performing Organization Address [facility] de Phone Number [facility] [address] [place] [address], [phone] * BLOOD SMEAR INTERPRETATION BY (07/25/2022 5:23 PM CRYPTOLOGIC SUPERVISOR) CBC PATHOLOGIST COMMENT SENT TO PATHOLOGIST FOR REVIEW 07/25/2022 5:32 PM CRYPTOLOGIC SUPERVISOR [facility] 07/25/2022 5:23 PM CRYPTOLOGIC SUPERVISOR us Tracy Yo MD LABORATORY Final Result Performing Organization Address [facility] Co de Phone Number [facility] [address] [place] [address], [place] [phone] * (ABNORMAL) LDH, LACTATE DEHYDROGENASE (07/25/2022 5:23 PM CRYPTOLOGIC SUPERVISOR) LDH 280(H) 87 - 241 UNITS/L 07/25/2022 5:59 PM CRYPTOLOGIC SUPERVISOR [facility] 07/25/2022 5:23 PM CRYPTOLOGIC SUPERVISOR us Tracy Yo MD LABORATORY Final Result Performing Organization Address [facility] Co de Phone Number [facility] [address] [place] [address], [phone] * (ABNORMAL) HEMOGLOBIN AND HEMATOCRIT (07/25/2022 5:23 PM CRYPTOLOGIC SUPERVISOR) Pathologist [facility] HGB 8.1(L) 13.0 - 18.0 G/DL 07/25/2022 5:31 PM CRYPTOLOGIC SUPERVISOR [facility] HCT 24.4(L) 37.0 - 52.0 % 07/25/2022 5:31 PM CRYPTOLOGIC SUPERVISOR [facility] 07/25/2022 5:23 PM CRYPTOLOGIC SUPERVISOR us Tracy Yo MD LABORATORY Final Result Performing Organization Address [facility] de Phone Number [facility] [address] [place] [address], [place] [phone] * HIV 1 ANTIGEN(S), WITH HIV-1 AND HIV-2 ANTIBODIES (07/25/2022 5:23 PM CRYPTOLOGIC SUPERVISOR) HIV 1/2 AB+ HIV1 P24 AG NON-REACTI VE NON-REACTI VE 07/25/2022 6:53 PM CRYPTOLOGIC SUPERVISOR [facility] Comment:HIV 1 p24 Ag and HIV 1/ HIV 2 Ab not detected. 07/25/2022 5:23 PM CRYPTOLOGIC SUPERVISOR us Tracy Simon Tarar MD LABORATORY Final Result [facility] [address] [place] [address], [id number] * MYCOPLASMA PNEUMONIAE AB (07/25/2022 5:23 PM CRYPTOLOGIC SUPERVISOR) [facility] M. PNEUMONIAE AB IGG <=0.90 <=0.90 07/30/2022 2:29 PM CRYPTOLOGIC SUPERVISOR [employer] Comment: Reference Range: ?<=0.90 ? Negative ? 0.91-1.09 ? Equivocal ?>=1.10 ? Positive A positive IgG result indicates that the patient has antibody to Mycoplasma. It does not differentiate between an active or past infection. The clinical diagnosis must be interpreted in conjunction with the clinical signs and symptoms of the patient. M. PNEUMONIAE AB IGM 463 <770 U/mL 07/30/2022 2:29 PM CRYPTOLOGIC SUPERVISOR [employer] Comment: Reference Range: ?? <770 U/ml [...] symptoms of the patient. Test Performed by [email or web address], [facility], [address] [place] [address] Adrián Balderas M.D., Ph.D., Director of Laboratories , CLIA [id number] 07/25/2022 5:23 PM CRYPTOLOGIC SUPERVISOR Tracy Yo MD LABORATORY Final Result [facility] [address] [place] [address], [place] [phone] * (ABNORMAL) PROTIME/INR, VENOUS (PROTHROMBIN TIME) (07/25/2022 5:23 PM CRYPTOLOGIC SUPERVISOR) PROTIME 14.6(H) 9.4 - 12.5 SEC 07/25/2022 5:56 PM CRYPTOLOGIC SUPERVISOR [facility] INR 1.3(H) 0.8 - 1.1 07/25/2022 5:56 PM CRYPTOLOGIC SUPERVISOR [facility] 07/25/2022 5:23 PM CRYPTOLOGIC SUPERVISOR Tracy Yo MD LABORATORY Final Result [facility] [address] [place] [address], [phone] * TYPE & SCREEN (07/25/2022 5:23 PM CRYPTOLOGIC SUPERVISOR) UNITS ORDERED 1 07/25/2022 5:33 PM CRYPTOLOGIC SUPERVISOR [facility] ABO/RH B POSITIVE 07/25/2022 6:36 PM CRYPTOLOGIC SUPERVISOR [facility] ANTIBODY SCREEN NEGATIVE 6:36 PM CRYPTOLOGIC SUPERVISOR [facility] SAMPLE EXPIRATION 07/28/2022,2359 07/25/2022 5:33 PM CRYPTOLOGIC SUPERVISOR [facility] BLOOD UNIT NUMBER [id number] 07/27/2022 4:27 AM CRYPTOLOGIC SUPERVISOR [facility] PRODUCT: PC LEUKOPOOR 07/27/2022 4:27 AM CRYPTOLOGIC SUPERVISOR [facility] UNIT DIVISION 00 07/27/2022 4:27 AM CRYPTOLOGIC SUPERVISOR [facility] BLOOD UNIT STATUS TRANSFUSED,FINAL 07/28/2022 2:57 AM CRYPTOLOGIC SUPERVISOR [facility] ISSUE DATE/TIME [id number] 022 2:57 AM [facility] PRODUCT CODE [id number] 07/28/2022 2:57 AM CRYPTOLOGIC SUPERVISOR [facility] ABO/RH Unit B POS 07/28/2022 2:57 AM CRYPTOLOGIC SUPERVISOR [facility] ABO/RH UNIT ISBT CODE 7300 07/28/2022 2:57 AM CRYPTOLOGIC SUPERVISOR [facility] BLOOD UNIT EXPIRATION DATE [id number] 07/28/2022 2:57 AM CRYPTOLOGIC SUPERVISOR [facility] TRANSFUSION STATUS OK TO TRANSFUSE 07/27/2022 4:27 AM CRYPTOLOGIC SUPERVISOR [facility] CROSSMATCH COMPATIBLE-EXM 07/27/2022 4:27 AM CRYPTOLOGIC SUPERVISOR [facility] 07/25/2022 5:23 PM CRYPTOLOGIC SUPERVISOR us Tracy Yo MD BLOOD BANK TEST ORDER CHRISTIANA Final Result [facility] [address] [place] [address], [id number] * CULTURE, BACTERIA, BLOOD (07/25/2022 2:17 PM CRYPTOLOGIC SUPERVISOR) SPEC DESCRIPTION BLOOD 07/25/2022 1:55 PM CRYPTOLOGIC SUPERVISOR [facility] SPECIAL REQUESTS NO SPECIAL REQUEST 07/25/2022 1:55 PM CRYPTOLOGIC SUPERVISOR [facility] CULTURE RESULT NO GROWTH 5 DAYS 07/30/2022 5:25 AM CRYPTOLOGIC SUPERVISOR [facility] BLOOD SPECIMEN OBTAINED FOR BLOOD CULTURE / Unknown 07/25/2022 2:17 PM CRYPTOLOGIC SUPERVISOR 07/25/2022 2:32 PM CRYPTOLOGIC SUPERVISOR us Tracy Yo MD MICROBIOLOGY - GENERA L ORDERABLES Final Result [facility] [address] [place] [address], [phone] * (ABNORMAL) COMPREHENSIVE METABOLIC PANEL (07/25/2022 2:16 PM CRYPTOLOGIC SUPERVISOR) SODIUM S/P/B 137 136 - 145 MMOL/L 07/25/2022 3:00 PM [facility] POTASSIUM S/P/B 3.4(L) 3.5 - 5.1 MMOL/L 07/25/2022 3:00 PM [facility] CHLORIDE S/P/B 106 98 - 107 MMOL/L 07/25/2022 3:00 PM [facility] CO2 24.7 21.0 - 32.0 MMOL/L 07/25/2022 3:00 PM [facility] GLUCOSE 85 74 - 106 MG/DL 07/25/2022 3:00 PM [facility] BUN 17 7 - 18 MG/DL 07/25/2022 3:00 PM [facility] CREATININE S/P/B 0.57(L) 0.70 - 1.30 MG/DL 07/25/2022 3:00 PM [facility] CALCIUM S/P/B 7.8(L) 8.5 - 10.1 MG/DL 07/25/2022 3:00 PM [facility] BILIRUBIN TOTAL S/P/B 0.3 0.2 - 1.0 MG/DL 07/25/2022 3:00 PM [facility] ALKALINE PHOSPHATASE S/P/B 61 45 - 115 U/L 07/25/2022 3:00 PM [facility] AST 23 15 - 37 U/L 07/25/2022 3:00 PM [facility] ALT 23 16 - 61 U/L 07/25/2022 3:00 PM [facility] TOTAL PROTEIN S/P/B 5.3(L) 6.4 - 8.2 G/DL 07/25/2022 3:00 PM [facility] ALBUMIN S/P/B 1.5(L) 3.4 - 5.0 G/DL 07/25/2022 3:00 PM [facility] ANION GAP 6.3 5.0 - 15.0 MMOL/L 07/25/2022 3:00 PM [facility] OSMOLALITY (CALC) 285 MOSM/KG 022 3:00 PM [facility] Comment:REFERENCE RANGE NOT ESTABLISHED GFR ESTIMATE >90 >90 ML/MIN/1. 73 M2 07/25/2022 3:00 PM [facility] GFR NOTES GFR REFERENCE S: 07/25/2022 3:00 PM [facility] Comment: THE ESTIMATED GFR IS CALCULATED [...] FAILURE: <15 ml/min/1.73 m2 07/25/2022 2:16 PM CRYPTOLOGIC SUPERVISOR Tracy Yo MD LABORATORY Final Result [facility] [address] [place] [address], [id number] * (ABNORMAL) CBC W/DIFF AUTOMATED (07/25/2022 2:16 PM CRYPTOLOGIC SUPERVISOR) WBC 17.6(H) 4.0 - 10.8 x10'3/uL 07/25/2022 2:26 PM [facility] RBC 2.07(L) 4.50 - 6.10 x10'6/uL 07/25/2022 2:26 PM [facility] HGB 7.0(L) 13.0 - 18.0 G/DL 07/25/2022 2:26 PM [facility] HCT 21.0(L) 37.0 - 52.0 % 07/25/2022 2:26 PM [facility] MCV 101.4(H) 78.0 - 100.0 FL 07/25/2022 2:26 PM [facility] MCH 33.8(H) 27.0 - 31.0 PG 07/25/2022 2:26 PM [facility] MCHC 33.3 33.0 - 36.0 G/DL 07/25/2022 2:26 PM [facility] RDW 13.6 11.5 - 14.5 % 07/25/2022 2:26 PM [facility] PLT 260 150 - 350 x10'3/uL 07/25/2022 2:26 PM [facility] MPV 10.8(H) 7.4 - 10.4 FL 07/25/2022 2:26 PM [facility] ABS. NEUTROPHILS 14.78(H) 1.60 - 8.30 x10'3/uL 07/25/2022 2:42 PM [facility] ABS. NEUTROPHILS CALCULATED 13.55(H) 1.60 - 7.30 x10'3/uL 07/25/2022 2:42 PM [facility] ABS. LYMPHOCYTES 2.29 0.80 - 4.70 x10'3/uL 07/25/2022 2:42 PM [facility] ABS. MONOCYTES 0.53 0.00 - 1.50 x10'3/uL 07/25/2022 2:42 PM CRYPTOLOGIC SUPERVISOR [facility] ABS. EOSINOPHILS 0.00 0.00 - 0.40 x10'3/uL 07/25/2022 2:42 PM CRYPTOLOGIC SUPERVISOR [facility] ABS. BASOPHILS 0.00 0.00 - 0.20 x10'3/uL 07/25/2022 2:42 PM CRYPTOLOGIC SUPERVISOR [facility] ABS. METAMYELOCYTES 0.70(H) 0.00 x10'3/uL 07/25/2022 2:42 PM CRYPTOLOGIC SUPERVISOR [facility] ABS. MYELOCYTES 0.35(H) 0.00 x10'3/uL 07/25/2022 2:42 PM CRYPTOLOGIC SUPERVISOR [facility] ABS. PROMYELOCYTES 0.18(H) 0.00 x10'3/uL 07/25/2022 2:42 PM CRYPTOLOGIC SUPERVISOR [facility] ABS. NUCLEATED RBC'S 0.00 0.0 x10'3/uL 07/25/2022 2:42 PM CRYPTOLOGIC SUPERVISOR [facility] RBC MORPHOLOGY ANISOCYTOSIS 07/25/20 2:42 PM CRYPTOLOGIC SUPERVISOR [facility] Comment: SLIGHT MACROCYTOSIS MODERATE POIKILOCYTOSIS SLIGHT OVALOCYTES ACANTHOCYTES WBC MORPHOLOGY VACUOLATED NEUTROPHILS 07/25/2022 2:42 PM CRYPTOLOGIC SUPERVISOR [facility] PLT MORPH. NORMAL 07/25/2022 2:42 PM CRYPTOLOGIC SUPERVISOR [facility] 07/25/2022 2:16 PM CRYPTOLOGIC SUPERVISOR Tracy Yo MD LABORATORY Final Result [facility] [address] [place] [address], [id number] * CULTURE, BACTERIA, BLOOD (07/25/2022 2:16 PM CRYPTOLOGIC SUPERVISOR) SPEC DESCRIPTION BLOOD 07/25/20 2:32 PM CRYPTOLOGIC SUPERVISOR [facility] SPECIAL REQUESTS BLOOD-AERO BIC BOTTLE ONLY 07/25/2022 2:32 PM CRYPTOLOGIC SUPERVISOR [facility] CULTURE RESULT NO GROWTH 5 DAYS 07/30/2022 5:25 AM CRYPTOLOGIC SUPERVISOR [facility] BLOOD SPECIMEN OBTAINED FOR BLOOD CULTURE / Unknown 07/25/2022 2:16 PM CRYPTOLOGIC SUPERVISOR 07/25/2022 2:32 PM CRYPTOLOGIC SUPERVISOR Tracy Yo MD MICROBIOLOGY - GENERA L ORDERABLES Final Result [facility] [address] [place] [address], [id number] * Pathology (07/25/2022 12:00 AM CRYPTOLOGIC SUPERVISOR) PATHOLOGY [facility] ? Department of Laboratory Medicine ?[address] ?[place] [address] ? , extension [phone] ? Pathology Report ? Peripheral Smear Report Name: RAY PHILLIPS ? Specimen #: [id number] Age: 9 1955 (Age: 67) ? Location: [facility] Sex: M ?Procedure Date: 07/25/2022 Hospital #: [id number] ?Date Received: 07/27/2022 Date Reported: 07/27/2022 Provider: [...] applicable), interpretation and sign-out were performed at [facility], [address] [address] [facility] [address], [place], [place], [address]. [facility] 07/25/2022 07/27/2022 7:5 8 AM CRYPTOLOGIC SUPERVISOR Comment:Peripheral blood Tracy Yo MD PATHOLOGY/CYTOLOGY OR DERABLES Final Result [facility] [address] [place] [address], [place] [phone] [id number] documented in this encounter Visit Diagnoses Not on filedocumented in this encounter Admitting Diagnoses Diagnosis Respiratory failure ([facility] Acute respiratory failure documented in this encounter [...] in 24 hours. Given 08/05/2022 9:02 PM CRYPTOLOGIC SUPERVISOR 650 mg Given 08/04/2022 10:28 PM CRYPTOLOGIC SUPERVISOR 650 mg Given 08/01/2022 9:40 PM CRYPTOLOGIC SUPERVISOR 650 mg albuterol sulfate HFA 108 (90 Base) MCG/ACT inhaler 2 puff 2 puff, Inhalation, Every 4 hours PRN, Wheezing, Shortness of breath, Starting on Sat07/25/22 at 1355, Until Sat08/08/22 at 1357 alteplase (CATHFLO) injection Code/trauma/sedation medication, Starting on Sat07/27/22 at 1034, Until Sat08/08/22 at 1357 Given 07/27/2022 10:34 AM CRYPTOLOGIC SUPERVISOR 2 mg Chest BUpivacaine (PF) (MARCAINE) 0.25 % injection As needed, Starting on Zulema 08/02/22 at 0823, Until Zulema 08/02/22 at 0927, Intra-Op Given 08/02/2022 8:23 AM CRYPTOLOGIC SUPERVISOR 30 mLs Operative Site calcium carbonate (TUMS) chewable tablet 500 mg 500 mg, Oral, Daily as needed, Indigestion, Starting on 08/04/22 at 1439, Until Sat08/08/22 at 1357 Given 08/04/2022 2:47 PM CRYPTOLOGIC SUPERVISOR 500 mg cefTRIAXone (ROCEPHIN) 2 g in sodium chloride 0.9 % 50 mL IVPB 2 g, Intravenous, at 100 mL/hr, Every 24 hours, First dose on Sat08/06/22 at 1400, Until Discontinued New Bag 08/08/2022 10:55 AM CRYPTOLOGIC SUPERVISOR 2 g 100 mL/hr New Bag 08/07/2022 2:58 PM CRYPTOLOGIC SUPERVISOR 2 g 100 mL/hr New Bag 08/06/2022 1:25 PM CRYPTOLOGIC SUPERVISOR 2 g 100 mL/hr enoxaparin (LOVENOX) 40 MG/0.4ML syringe 40 mg 40 mg, Subcutaneous, Nightly (enoxaparin), First dose on Sat08/03/22 at 2100, Until Discontinued, Administer by deep SubQ injection alternating between the left or right anterolateral and left or right posterolateral abdominal wall. Given 08/07/2022 8:35 PM CRYPTOLOGIC SUPERVISOR 40 mg Right Lower Abdomen Given 08/06/2022 9:35 PM CRYPTOLOGIC SUPERVISOR 40 mg Ri ght Lower Abdomen Given 08/05/2022 8:52 PM CRYPTOLOGIC SUPERVISOR 40 mg Ri ght Lower Abdomen FLUoxetine (PROzac) capsule 20 mg 20 mg, Oral, Daily, First dose on Sat07/25/22 at 1700, Until Discontinued Given 08/08/2022 8:44 AM CRYPTOLOGIC SUPERVISOR 20 mg Given 08/07/2022 8:51 AM CRYPTOLOGIC SUPERVISOR 20 mg Given 08/06/2022 10:03 AM CRYPTOLOGIC SUPERVISOR 20 mg gabapentin (NEURONTIN) capsule 300 mg 300 mg, Oral, 2 times daily, First dose on Sat07/25/22 at 2100, Until Discontinued Given 08/08/2022 8:44 AM CRYPTOLOGIC SUPERVISOR 300 mg Given 08/07/2022 8:35 PM CRYPTOLOGIC SUPERVISOR 300 mg Given 08/07/2022 8:51 AM CRYPTOLOGIC SUPERVISOR 300 mg HYDROcodone-acetaminophen (NORCO) 10-325 MG tablet 1 tablet 1 tablet, Oral, Every 6 hours PRN, Moderate pain (Scale 4 - 7), Severe pain (Scale 8 - 10), Starting on Sat07/25/22 at 1634, Until Sat08/08/22 at 1357, Second line for moderate pain Maximum dose of acetaminophen is 4000 mg from all sources in 24 hours. Given 08/08/2022 6:00 AM CRYPTOLOGIC SUPERVISOR 1 t ablet Given 08/07/2022 8:35 PM CRYPTOLOGIC SUPERVISOR 1 tablet Given 08/07/2022 8:55 AM CRYPTOLOGIC SUPERVISOR 1 tablet influenza virus vaccine (QUAD) injection 0.5 mL 0.5 mL, Intramuscular, Once as needed, Other, give before discharge, 1 dose, Starting on Sat07/26/22 at 1245, Until Sat08/08/22 at 1357, Please give vaccine prior to discharge. ipratropium-albuterol (COMBIVENT RESPIMAT) 20-100 MCG/ACT inhaler 1 puff 1 puff, Inhalation, Every 4 hours, First dose on Sat07/31/22 at 1930, Until Discontinued, Neb sub Shake Well. Prime inhaler prior to first use. Given 08/08/2022 10:59 AM CRYPTOLOGIC SUPERVISOR 1 puff Given 08/08/2022 8:48 AM CRYPTOLOGIC SUPERVISOR 1 puff Given 08/08/2022 2:27 AM CRYPTOLOGIC SUPERVISOR 1 puff lidocaine (XYLOCAINE) 1 % injection SOLN Code/trauma/sedation medication, Starting on Sat07/27/22 at 1016, Until Sat08/08/22 at 1357 Given 07/27/2022 10:16 AM CRYPTOLOGIC SUPERVISOR 8 mLs Chest lidocaine 4 % patch 1 patch 1 patch, Transdermal, Administer over 12 Hours, Every 24 hours, First dose on Sat08/03/22 at 0615, Until Discontinued Patch Applied 08/08/2022 6:01 AM CRYPTOLOGIC SUPERVISOR 1 patch Back Patch Applied 08/07/2022 5:47 AM CRYPTOLOGIC SUPERVISOR 1 patch Back Patch Applied 08/06/2022 5:38 AM CRYPTOLOGIC SUPERVISOR 1 patch Back LORazepam (ATIVAN) tablet 1 mg 1 mg, Oral, 2 times daily PRN, Anxiety, Starting on Sat07/25/22 at 1634, Until Sat08/08/22 at 1357 Given 08/08/2022 10:25 AM CRYPTOLOGIC SUPERVISOR 1 mg Given 08/07/2022 5:13 PM CRYPTOLOGIC SUPERVISOR 1 mg Given 08/07/2022 3:33 AM CRYPTOLOGIC SUPERVISOR 1 mg metroNIDAZOLE (FLAGYL) tablet 500 mg 500 mg, Oral, Every 8 hours scheduled (3 times per day), First dose on Sat07/30/22 at 1430, Until Discontinued Given 08/08/2022 6:00 AM CRYPTOLOGIC SUPERVISOR 500 mg Given 08/07/2022 10:52 PM CRYPTOLOGIC SUPERVISOR 500 mg Given 08/07/2022 2:58 PM CRYPTOLOGIC SUPERVISOR 500 mg morphine (MSIR) tablet 30 mg 30 mg, Oral, Every 8 hours PRN, Moderate pain (Scale 4 - 7), Starting on Sat07/25/22 at 1634, Until Sat08/08/22 at 1357, First line for moderate painIndications:Chronic Pain Given 08/08/2022 10:25 AM CRYPTOLOGIC SUPERVISOR 3 0 mg Given 08/08/2022 2:26 AM CRYPTOLOGIC SUPERVISOR 30 mg Given 08/07/2022 5:15 PM CRYPTOLOGIC SUPERVISOR 30 mg normal saline 0.9 % flush 3-10 mL 3-10 mL, Intravenous, Every 8 hours, First dose on Zulema 08/02/22 at 0945, Until Discontinued, Post-Op Given 08/08/2022 8:48 AM CRYPTOLOGIC SUPERVISOR 10 mLs Given 08/07/2022 10:52 PM CRYPTOLOGIC SUPERVISOR 10 mLs Given 08/06/2022 10:04 AM CRYPTOLOGIC SUPERVISOR 5 mLs normal saline 0.9 % flush 3-10 mL 3-10 mL, Intravenous, As needed, Line care, Starting on Zulema 08/02/22 at 0915, Until Sat08/08/22 at 1357, Post-Op Given 08/02/2022 6:33 PM CRYPTOLOGIC SUPERVISOR 10 mLs ondansetron (ZOFRAN) injection 4 mg 4 mg, Intravenous, Every 8 hours PRN, Nausea, Vomiting, Starting on Sat07/25/22 at 1355, Until Sat08/08/22 at 1357, IV push over 2-5 minutes. polyethylene glycol (GLYCOLAX) packet 17 g 17 g, Oral, 2 times daily, First dose on Zulema 08/02/22 at 0945, Until Discontinued, Until bowel movement, then discontinue, Post-Op Given 08/07/2022 8:35 PM CRYPTOLOGIC SUPERVISOR 17 g Given 08/07/2022 8:51 AM CRYPTOLOGIC SUPERVISOR 17 g Given 08/06/2022 9:37 PM CRYPTOLOGIC SUPERVISOR 17 g senna-docusate (SENOKOT-S) 8.6-50 MG tablet 1 tablet 1 tablet, Oral, Nightly PRN, Constipation, Starting on Zulema 08/02/22 at 0920, Until Sat08/08/22 at 1357, Post-Op Given 08/06/2022 5:43 AM CRYPTOLOGIC SUPERVISOR 1 tablet Given 08/05/2022 5:03 AM CRYPTOLOGIC SUPERVISOR 1 tablet sodium chloride (OCEAN) 0.65 % nasal spray 1 spray 1 spray, Each Nostril, As needed, Dryness, Starting on Sat07/25/22 at 2141, Until Sat08/08/22 at 1357 Given 07/25/2022 11:05 PM CRYPTOLOGIC SUPERVISOR 1 spray traZODone (DESYREL) tablet 100 mg 100 mg, Oral, Nightly at bedtime, First dose on Sat07/25/22 at 2100, Until Discontinued Given 08/07/2022 8:35 PM CRYPTOLOGIC SUPERVISOR 100 mg Given 08/06/2022 9:36 PM CRYPTOLOGIC SUPERVISOR 100 mg Given 08/05/2022 8:52 PM CRYPTOLOGIC SUPERVISOR 100 mg documented in this encounter Active and Recently Administered Medications Times are shown in CRYPTOLOGIC SUPERVISOR. Scheduled Medication Order 08/06/2022 08/07/2022 08/08/2022 ceFEPIme [...] (Due: Infusion Stop Time - Provider: Anisa Anthnoy RN) enoxaparin (LOVENOX) 40 MG/0.4ML syringe 40 [...] dose on Sat07/25/22 at 2100, Until Discontinued 100 (Given - Provider: Miguel Cisse RN)2135 (Given - Provider: Merary Langley RN) 0851 (Given - Provider: Kia Feliciano RN)2034 (Given - Provider: Merary Langley RN) 0844 (Given - Provider: Anisa Anthony RN) ipratropium-albuterol (COMBIVENT RESPIMAT) 20-100 MCG/ACT inhaler 1 puff 1 puff, Inhalation, Every 4 hours, First dose on Sat07/31/22 at 1930, Until Discontinued, Neb sub Shake Well. Prime inhaler prior to first use. 0411 (Not Given - Provider: Gadiel Fitch RN - Reason: Patient sleeping)0539 (Given - Provider: Gadiel Ftich RN)1311 (Given - Provider: Miguel Cisse RN)1631 (Not Given - Provider: Miguel Cisse RN - Reason: Patient already took)2135 (Given - Provider: Merary Langley RN) 0007 (Not Given - Provider: Merary Langley RN - Reason: Patient already took)0333 (Given - Provider: Merary Langley RN)0851 (Given - Provider: Kia Feliciano RN)1231 (Given - Provider: Kia Feliciano, ALANNAH)1600 (Not Given - Provider: Beata Chavarria RN - Reason: Other)1717 (Given - Provider: Beata Chavarria RN)2252 (Given - Provider: Merary Langley RN) 0227 (Given - Provider: Merary Langley RN)0848 (Given - Provider: Anisa Anthony RN)1059 (Given - Provider: Anisa Anthony RN) lactated [...] Langley RN)1718 (Patch Removed - Provider: Beata Chavarria RN) 0601 (Patch Applied - Provider: Merary Langley [...] Merary Langley RN)1458 (Given - Provider: Kia Feliciano, ALANNAH)2252 (Given - Provider: Merary Langley RN) 0600 (Given - Provider: Merary Langley RN) normal saline 0.9 % flush 3-10 mL 3-10 mL, Intravenous, Every 8 hours, First dose on Sat08/02/22 at 0945, Until Discontinued, Post-Op 0411 (Not Given - Provider: Gadiel Magen P Nagallo, RN - Reason: Patient already took)1004 (Given [...] Langley RN) 0848 (Given - Provider: Anisa Anthony, ALANNAH) polyethylene glycol (GLYCOLAX) packet 17 g 17 g, Oral, 2 times daily, First dose on Zulema 08/02/22 at 0945, Until Discontinued, Until bowel movement, then discontinue, Post-Op 1004 (Not Given - Provider: Miguel Cisse RN - Reason: Patient already took - Comment: pt states he already took a dose and does not want another)2136 (Given - Provider: Merary Langley RN) 0851 [...] dose on 07/28/22 at 1130, Until Discontinued 537 (New Bag - Provider: Gadiel Fitch, ALANNAH)0638 (Infusion Stop Time - Provider: Gadiel Fitch, ALANNAH) PRN Medication Order 08/06/2022 08/07/2022 08/08/2022 acetaminophen [...] Oral, Daily as needed, Indigestion, Starting on Sat08/04/22 at 1439, Until Sat08/08/22 at 1357 HYDROcodone-acetaminophe [...] RN) 0333 (Given - Provider: Merary Langley RN)1713 [...] Kia Feliciano RN)1715 (Given - Provider: Beata Chavarria RN) 0226 (Given - Provider: Merary Langley RN)1025 (Given - Provider: Anisa Anthony RN) normal saline 0.9 % flush 3-10 mL 3-10 mL, Intravenous, As needed, Line care, Starting on Sat08/02/22 at 0915, Until Sat08/08/22 at 1357, Post-Op ondansetron (ZOFRAN) injection 4 mg 4 mg, Intravenous, Every 8 hours PRN, Nausea, Vomiting, Starting on Sat07/25/22 at 1355, Until Sat08/08/22 at 1357, IV push over 2-5 minutes. senna-docusate (SENOKOT-S) 8.6-50 MG tablet 1 tablet 1 tablet, Oral, Nightly PRN, Constipation, Starting on Sat08/02/22 at 0920, Until Sat08/08/22 at 1357, Post-Op 0543 (Given - Provider: Gadiel Fitch RN) sodium chloride (OCEAN) 0.65 % nasal spray 1 spray 1 spray, Each Nostril, As needed, Dryness, Starting on Sat07/25/22 at 2141, Until 08/08/22 at 1357 documented in this encounter Additional Health Concerns Infection Onset Date Last Indicated Resolved Time COVID-19 Rule Out 07/25/2022 07/25/2022 08/01/2022 12:32 AM CRYPTOLOGIC SUPERVISOR documented as of this encounter Care Teams Design Draftsman Relationship Specialty Start Date End Date Joe Tam DO [address] [place] [address] PCP - General FAMILY PRACTICE 07/22/22 documented as of this encounter
--- OUTSIDE RECORDS SUMMARY | 2024-08-20 13:51 | XMS_ITS | Encounter Summary ---
Author Organization [facility] Address [address] [place] [address]. [place] [address] [place] [address] Care Team Providers Care Assistant Professor Sculpture Name Role Phone Mark Carmichael DO Primary Care Provider [phone] Encounter Details Date Type Department Care Team (Latest Contact Info) Description 08/03/2022 Travel Social History Tobacco Use Types Packs/Day [...] Coronavirus/COVID-19? No / Unsure 08/03/2022 2:21 AM ELECTRONIC DRAFTER documented as of this encounter Functional Status * RETIRED Are you deaf or do you have serious difficulty hearing Answer Date of Assessment Author Status No 07/25/2022 11:00 PM ELECTRONIC DRAFTER Acti ve * RETIRED Are you blind or do you have serious difficulty seeing, even when wearing glasses? Answer Date of Assessment Author Status No 07/25/2022 11:00 PM ELECTRONIC DRAFTER Acti ve * Do you have serious difficulty walking or climbing stairs? Answer Date of Assessment Author Status No 07/25/2022 11:00 PM ELECTRONIC DRAFTER Katie Vega ma R, RN Active * Do you have difficulty dressing or bathing? Answer Date of Assessment Author Status No 07/25/2022 11:00 PM ELECTRONIC DRAFTER Katie Vega ma, RN Active * Because of a physical, mental, or emotional condition, do you have difficulty doing errands alone such as visiting a doctor's office or shopping? Answer Date of Assessment Author Status No 07/25/2022 11:00 PM ELECTRONIC DRAFTER Katie Vega ma, RN Active documented as of this encounter Mental Status * Because of a physical, mental, or emotional condition, do you have serious difficulty concentrating, remembering, or making decisions? Answer Entry Date Author Status No 07/25/2022 11:00 PM ELECTRONIC DRAFTER Katie Vega ma, RN Active documented in this encounter Plan of Treatment Not on file documented as of this encounter Goals Goal Patient Goal Type Associated Problems Recent Progress Patient-Stated? Author Family - family caregiver with be involved in care transitions and discharge planning Lifestyle No Angela Dawkins, FIRE PROTECTION SPECIALIST documented as of this encounter Visit Diagnoses Not on filedocumented in this encounter Care Teams Assistant Professor Sculpture Relationship Specialty Start Date End Date Mark Carmichael DO [address] [place] [address] PCP - General FAMILY PRACTICE 07/22/22 documented as of this encounter
--- OUTSIDE RECORDS SUMMARY | 2024-08-20 13:51 | XMS_ITS | Encounter Summary ---
Author Organization [facility] Address [address] [place] [address]. [place] [address] [place] [address] Care Team Providers Care Credit Control Clerk Name Role Phone Mark Carmichael DO Primary Care Provider [phone] Encounter Details Date Type Department Care Team (Latest Contact Info) Description 07/30/2022 Travel Social History Tobacco Use Types Packs/Day [...] suspected to have Coronavirus/COVID-19? No / Unsure 07/30/2022 6:53 AM COMMISSIONS ANALYST documented as of this encounter Functional Status * RETIRED Are you deaf or do you have serious difficulty hearing Answer Date of Assessment Author Status No 07/25/2022 11:00 PM COMMISSIONS ANALYST Acti ve * RETIRED Are you blind or do you have serious difficulty seeing, even when wearing glasses? Answer Date of Assessment Author Status No 07/25/2022 11:00 PM COMMISSIONS ANALYST Acti ve * Do you have serious difficulty walking or climbing stairs? Answer Date of Assessment Author Status No 07/25/2022 11:00 PM COMMISSIONS ANALYST Katie Vega ma R, RN Active * Do you have difficulty dressing or bathing? Answer Date of Assessment Author Status No 07/25/2022 11:00 PM COMMISSIONS ANALYST Katie Vega ma, RN Active * Because of a physical, mental, or emotional condition, do you have difficulty doing errands alone such as visiting a doctor's office or shopping? Answer Date of Assessment Author Status No 07/25/2022 11:00 PM COMMISSIONS ANALYST Katie Vega ma, RN Active documented as of this encounter Mental Status * Because of a physical, mental, or emotional condition, do you have serious difficulty concentrating, remembering, or making decisions? Answer Entry Date Author Status No 07/25/2022 11:00 PM COMMISSIONS ANALYST Katie Vega ma, RN Active documented in this encounter Plan of Treatment Not on file documented as of this encounter Goals Goal Patient Goal Type Associated Problems Recent Progress Patient-Stated? Author Family - family caregiver with be involved in care transitions and discharge planning Lifestyle No Angela Dawkins, LICENSED PSYCHIATRIC TECHNICIAN documented as of this encounter Visit Diagnoses Not on filedocumented in this encounter Additional Health Concerns Infection Onset Date Last Indicated Resolved Time COVID-19 Rule Out 07/25/2022 07/25/2022 08/01/2022 12:32 AM COMMISSIONS ANALYST documented as of this encounter Care Teams Credit Control Clerk Relationship Specialty Start Date End Date Mark Carmichael DO [address] [place] [address] PCP - General FAMILY PRACTICE 07/22/22 documented as of this encounter
--- OUTSIDE RECORDS SUMMARY | 2024-08-20 13:51 | XMS_ITS | Encounter Summary ---
Author Organization [facility] Address [address] [place] [address]. [place] [address] [place] [address] Care Team Providers Care Ampoule Washing Machine Operator Name Role Phone Mark Carmichael DO Primary Care Provider [phone] Encounter Details Date Type Department Care Team (Latest Contact Info) Description 07/31/2022 Travel Social History Tobacco Use Types Packs/Day [...] Coronavirus/COVID-19? No / Unsure 07/31/2022 8:31 AM NURSE RECRUITER documented as of this encounter Functional Status * RETIRED Are you deaf or do you have serious difficulty hearing Answer Date of Assessment Author Status No 07/25/2022 11:00 PM NURSE RECRUITER Acti ve * RETIRED Are you blind or do you have serious difficulty seeing, even when wearing glasses? Answer Date of Assessment Author Status No 07/25/2022 11:00 PM NURSE RECRUITER Acti ve * Do you have serious difficulty walking or climbing stairs? Answer Date of Assessment Author Status No 07/25/2022 11:00 PM NURSE RECRUITER Katie Vega ma R, RN Active * Do you have difficulty dressing or bathing? Answer Date of Assessment Author Status No 07/25/2022 11:00 PM NURSE RECRUITER Katie Vega ma, RN Active * Because of a physical, mental, or emotional condition, do you have difficulty doing errands alone such as visiting a doctor's office or shopping? Answer Date of Assessment Author Status No 07/25/2022 11:00 PM NURSE RECRUITER Katie Vega ma, RN Active documented as of this encounter Mental Status * Because of a physical, mental, or emotional condition, do you have serious difficulty concentrating, remembering, or making decisions? Answer Entry Date Author Status No 07/25/2022 11:00 PM NURSE RECRUITER Katie Vega ma, RN Active documented in this encounter Plan of Treatment Not on file documented as of this encounter Goals Goal Patient Goal Type Associated Problems Recent Progress Patient-Stated? Author Family - family caregiver with be involved in care transitions and discharge planning Lifestyle No Angela Dawkins, FIELD UNDERWRITER documented as of this encounter Visit Diagnoses Not on filedocumented in this encounter Additional Health Concerns Infection Onset Date Last Indicated Resolved Time COVID-19 Rule Out 07/25/2022 07/25/2022 08/01/2022 12:32 AM NURSE RECRUITER documented as of this encounter Care Teams Ampoule Washing Machine Operator Relationship Specialty Start Date End Date Mark Carmichael DO [address] [place] [address] PCP - General FAMILY PRACTICE 07/22/22 documented as of this encounter
--- OUTSIDE RECORDS SUMMARY | 2024-08-20 13:51 | XMS_ITS | Encounter Summary ---
Author Organization [facility] Address Formerly [facility] [place] [address] [place] [address] Care Team Providers Care Pharmacist Hospital Name Role Phone Mark Carmichael DO Primary Care Provider [phone] Reason for Visit * Auth/Cert (Routine) Specialty Diagnoses / Procedures Referred By Contac t Referred To Contact Diagnoses Respiratory failure (CMS/HCC [facility]/HCC) Acute respiratory failure Respiratory failure ([facility] Procedures NONE De Villasenor MD [address] [place] [address] Phone: tel: fax: Referral ID Status Reason Start Date Expiration Date Visits Re quested Visits Authorized [id number] 1 1 Encounter Details Date Type Department Care Team (Late st Contact Info) Description 08/02/2022 7:28 AM COLOR SEPARATION PHOTOGRAPHER Anesthesia Event [facility] [address] [place] [address] Mika Kang MD [address] [place] [address] [place] [address] Nyasia Beach RN Anesthesia Record Procedure Summary Procedure Name Responsible Anesthesiologist Anesthesia Start Time Anesthesia Stop Time THORACOSCOPY (VATS) WITH RIGHT DECORICATION (Right: Chest) Mika Kang MD 08/02/22 0728 08/02/22 0925 Events Date Time Event Comment 08/02/2022 0717 0717 AN Anesthesia Prepped 0728 An Start Patient ID and consent checked and patient reassessed. 0728 An Start Data 0728 Preoxygenation 0736 An Induction The patient was reevaluated immediately before moderate or deep sedation use and before anesthesia induction. 0742 An Intubation 0751 Quick Note Surgeon request s no additional abx. 0809 Anesthesia Ready 0812 An one lung vent 0840 An Two-Lung Vent 0912 An Extubation 0920 an stop data 0925 Post Anesthetic Care Handoff I completed my handoff to the receiving nurse during which we: 1. Identified the patient 2. Identified the responsible provider 3. Reviewed the pertinent medical history 4. Discussed the surgical course 5. Reviewed intra-op anesthesia management and issues during anesthesia 6. Set expectations for post-procedure period 7. Allowed opportunity for questions and acknowledgement of understanding. 0925 An Stop Meds Name Total midazolam (VERSED) 1 mg/mL injection 2 m g fentaNYL (SUBLIMAZE) 100 mcg/2 mL inject ion 200 mcg lidocaine (PF) (XYLOCAINE) 1% injection 100 mg propofol (DIPRIVAN) 200 mg/20 mL injecti on 160 mg rocuronium (ZEMURON) 50 mg/5 mL injectio n 80 mg phenylephrine (REY-SYNEPHRIN E) 10 mg in sodium chloride 0.9 % 250 mL infusion 2,170 mcg ondansetron (ZOFRAN) injection 4 mg sugammadex (BRIDION) 200 mg/2 mL injecti on 200 mg lactated ringers infusion 300 mL sodium chloride 0.9% infusion 900 mL * Agents Name O2 Air Inspired Sevoflurane Sevoflurane * Blood No blood administrations on file. Lines, Drains, and Airways Type Details Placement Removal Midline Single Lumen Placement Date: ; Placement Time: 1121; Placed Outside of This Facility?: No; Orientation: Left; Location: Basilic; Site Prep: Chlorhexidine; Local Anesthetic: Injectable; Inserted By: KIKO GROSS MD; Insertion attempts: 1; Ultrasound-guided Placement?: Yes; Patient Tolerance: Tolerated well 07/27/22 1121 by IESHA Landin Chest Tube Placement Date: 07/04 01/21; Placement Time: 1023; Inserted By: Dr. Osuna; Tube Number: 1; Orientation: Right; Location: Pleural; Size: 12 Fr.; Drainage System: Suction; Removal Date: 08/02/22; Removal Time: 0800; Removal Reason: Other (removed during procedure by ) 07/27/22 1023 by Izzy Leslie RN 08/02/22 0800 by Carmen Blake, career technology teacher/Incision 07/30/22; 1534; Surg ical Wound; Throat; no dressing needed ; 08/08/22; 1352 07/30/22 1534 by Janice Houser RN 08/08/22 1352 by Automatic Discharge Provider Surgical/Incision 08/02/22; Closed Inc ision; Back; Right, Lateral; 08/20/22 08/02/22 0000 by Vidya Pierce RN 08/20/22 0000 by Conchita Cazares, ALANNAH ETT Placement Date: 09/23; Placement Time: 0742; Placed Outside of This Facility?:No; Mask Ventilate: Prior to intubation, Easy; Size (mm) : Other (comment) (37 Fr); Endotracheal: Oral, Stylet used, Left Double Lumen; Blade Type: Other (comment) (C-Mac 4); Placement Method: Video Laryngoscope (see comments) (C-Mac 4); View Grade: 1; Viewable Anatomy: Epiglottis, Arytenoid, Vocal cords; Insertion Attempts: 1; Placement Verified By: Capnography, Chest Rise, Auscultation; Placed By: Other (Comment) (EMILY Barrow); Extubation Assessment: Suctioned, Tolerated well, Patient spontaneously breathing, Deep breathes w/equal chest movements, Able to swallow, Atraumatic; Removal Date: 08/02/22; Removal Time: 0912; Removal Person: RADIO SALES ACCOUNT EXECUTIVE; Removal Reason: End of Case 08/02/22 0742 by Amarjit Suarez CRNA 08/02/22 0912 by Amarjit Suarez CRNA Arterial Line Placement Date: 09/23; Placement Time: 0753 (created via procedure documentation); Placed Outside of This Facility?: No; Size: 20; Orientation: Left; Location: Radial; Site Prep: Chlorhexidine; Local Anesthetic: None; Insertion Attempts: 1; Patient Tolerance: Tolerated well; Removal Date: 08/02/22; Removal Time: 1014; Removal Reason: Therapy Completed 08/02/22 0753 by Amarjit Suarez CRNA 08/02/22 1014 by Marge Bauman RN Peripheral IV Placement Date: 09/23; Placement Time: 08; Placed Outside of This Facility?: No; Size: 18 G; Orientation: Left, Distal; Location: Forearm; Site Prep: Chlorhexidine; Local Anesthetic: None; Inserted By: ALANNAH Mendez; Insertion attempts: 2; Ultrasound-guided Placement?: No; Patient Tolerance: Tolerated well; Removal Date: 08/04/22; Removal Time: 1999; Removal Reason: Patient Pulled Out / Migrated 08/02/22 08 by Amarjit Suarez CRNA 08/04/221999 by Gadiel Fitch RN Chest Tube Placement Date: 09/23; Placement Time: 08; Inserted By: Dr. Ross Blackburn; Tube Number: 1; Orientation: Right; Location: Pleural; Size: 24 Fr.; Drainage System: Suction; Removal Date: 08/06/22; Removal Time: 1100; Removal Reason: Per Order (removed by MD) 08/02/22 0839 by Samantha Huffman RN 08/06/22 1100 by Miguel Cisse RN Surgical/Incision 08/02/22; 0843; Surg ical Wound; Chest; Right; ADHESIVE DERMABOND (x0), DRESSING STERI STRIP 1/4IN X 4IN (x0), DRESSING 4 X 4 2 PACK (x2); medipore tape over gauze chest tubes banded in OR; 08/08/22 08/02/22 0843 by Samantha Huffman RN 08/08/22 0000 by Vidya Pierce RN Supraglottic Airway Placement Date: 09/23; Placement Time: 09; Airway Device: Facemask; Placed By: AVTAR; Removal Date: 08/03/22; Removal Person: Anesthesiologist 08/02/22 0912 by Amarjit Suarez CRNA 08/03/22 0000 by Samantha Collins RN documented in this encounter Social History Tobacco [...] Coronavirus/COVID-19? No / Unsure 07/31/2022 8:31 AM COLOR SEPARATION PHOTOGRAPHER documented as of this encounter Functional Status * RETIRED Are you deaf or do you have serious difficulty hearing Answer Date of Assessment Author Status No 07/25/2022 11:00 PM COLOR SEPARATION PHOTOGRAPHER Acti ve * RETIRED Are you blind or do you have serious difficulty seeing, even when wearing glasses? Answer Date of Assessment Author Status No 07/25/2022 11:00 PM COLOR SEPARATION PHOTOGRAPHER Acti ve * Do you have serious difficulty walking or climbing stairs? Answer Date of Assessment Author Status No 07/25/2022 11:00 PM COLOR SEPARATION PHOTOGRAPHER Katie Vega ma, RN Active * Do you have difficulty dressing or bathing? Answer Date of Assessment Author Status No 07/25/2022 11:00 PM COLOR SEPARATION PHOTOGRAPHER Katie Vega ma, RN Active * Because of a physical, mental, or emotional condition, do you have difficulty doing errands alone such as visiting a doctor's office or shopping? Answer Date of Assessment Author Status No 07/25/2022 11:00 PM COLOR SEPARATION PHOTOGRAPHER Katie Vega ma, RN Active documented as of this encounter Mental Status * Because of a physical, mental, or emotional condition, do you have serious difficulty concentrating, remembering, or making decisions? Answer Entry Date Author Status No 07/25/2022 11:00 PM COLOR SEPARATION PHOTOGRAPHER Katie Vega ma, RN Active documented in this encounter OR Notes * Anesthesia Postprocedure Evaluation - Rachna Aguila MD,PHD - 08/02/2022 11:50 AM CST Anesthesia Post-op Note Ray Ashley Procedure(s): THORACOSCOPY (VATS) WITH RIGHT DECORICATION (Right: Chest) Anesthesia type: general Vitals: 08/02/22 1045 BP: (!) 85/56 Vitals: 08/02/22 1045 Pulse: 63 Vitals: 08/02/22 1045 Resp: 18 Vitals: 08/02/22 0925 Temp: 36.1 ??C Vitals: 08/02/22 1045 SpO2: 95% Patient Location: PACU Level of Consciousness: awake, alert and oriented Pain Management: adequate analgesia Airway Patency: patent Respiratory Status: acceptable Cardiovascular Status: acceptable Post-Op Nausea: none Postoperative Hydration: euvolemic Comments: Pt evaluated, denies pain/n/v/recall, breathing comfortable, tolerating PO, ready for discharge from PACU. There were no known notable events for this encounter. R SEPARATION PHOTOGRAPHER * Anesthesia Procedure Notes - Amarjit Suarez CRNA - 08/02/2022 8:52 AM COLOR SEPARATION PHOTOGRAPHER Associated Order(s): Art Line Art Line Date/Time: 08/02/2022 7:53 AM Performed by: Amarjit Suarez CRNA Authorized by: Mika Kang MD Patient Location: OR Placed Outside of This Facility?: No Size: 20 Orientation: Left Location: Radial Site Prep: Chlorhexadine Local Anesthetic: None Insertion Attempts: 1 Ultrasound-guided Placement: No Secure Method: Taped Patient Tolerance: Tolerated well R SEPARATION PHOTOGRAPHER * Anesthesia Preprocedure Evaluation - Mika Kang MD - 08/01/2022 3:13 PM CST Anesthesia ROS/MED History Reviewed: Patient summary , ECG, Family history anesthesia, Anesthesia history , Medications , Labs , Unchecked boxes are not applicable Pre-Anesthetic State: alert, awake and responds appropriately no history of anesthetic complications Pulmonary (+) pneumonia (necrotizing pneumonia of RLL, loculated right pleural effusion), COPD, shortness of breath, smoker ROS comment: Acute hypoxic respiratory failure, possible pulmonary edema On 2 l NC Cardiovascular neg cardio ROS Exercise tolerance:poor ROS comment: Pericardial effusion 07/27/22 ECHO The left ventricular size is normal. The calculated ejection fraction is 61%. Wall motion appears normal in all segments. The right ventricle is normal in size and function. No evidence of pericardial effusion. Aortic root is mildly dilated. Ascending aorta is mildly dilated. Inferior vena cava shows >50% collapse with respiration consistent with normal right atrial pressure. No significant valvular heart disease. 07/20/22 ekg: Sinus tachycardia ST-T wave abnormality lateral leads - consider ischemia Baseline artifact I, II, III, AVR, AVL, AVF, V1-V6 Abnormal ekg Neuro/Psych (+) depression, psychiatric problem, (anxiety) Comments: Chronic back pain, chronic compression fx of L3, lumbar spondylosis GI/Hepatic/Renal Comments: Splenomegaly Endo/Other (+) blood dyscrasia, (Anemia) GENERAL COMMENTS H&P noted 07/25/22 Procedure: THORACOSCOPY (VATS) WITH RIGHT DECORICATION (Right: Chest) Anesthesia type: General Pre-op diagnosis: PLEURAL EFFUSION Physical Evaluation Airway Mallampati: II TM Distance: >3 FB Neck ROM: normal Dental (edentulous) Pulmonary (+) decreased breath sounds, (reduced on right) Cardiovascular Rhythm: regular Rate: normal Cardiovascular exam normal Anesthesia Plan ASA 3 Intravenous Induction Anesthesia type: general Plan for Airway: JEANCARLOS/bronchial lexie and video laryngoscope Plan for Vascular: second IV and arterial line Plan for Monitors: arterial blood pressure Plan for Post-op Pain Plan: IV analgesics and oral pain medication Informed Consent Anesthetic plan and risks discussed with patient of whom consent was obtained. Use of blood products discussed with patient of whom consent was obtained. . R SEPARATION PHOTOGRAPHER R SEPARATION PHOTOGRAPHER R SEPARATION PHOTOGRAPHER documented in this encounter Plan of Treatment Not on file documented as of this encounter Goals Goal Patient Goal Type Associated Problems Recent Progress Patient-Stated? Author Family - family caregiver with be involved in care transitions and discharge planning Lifestyle No Angela Dawkins, KEYSEATER OPERATOR documented as of this encounter Procedures Procedure Name Priority Date/Time Associated Diagnosis Comments ART LINE PLACEMENT Routine 08/02/2022 7: 53 AM COLOR SEPARATION PHOTOGRAPHER documented in this encounter Results * ART LINE PLACEMENT (08/02/2022 7:53 AM COLOR SEPARATION PHOTOGRAPHER) Narrative Amarjit Suarez CRNA - 08/02/2022 7:53 AM COLOR SEPARATION PHOTOGRAPHER Amarjit Suarez CRNA ? 08/02/2022 ??8:52 AM Art Line Date/Time: 08/02/2022 7:53 AM Performed by: Amarjit Suarez CRNA Authorized by: Mika Kang MD Patient Location: ??OR Placed Outside of This Facility?: ??No Size: ??20 Orientation: ??Left Location: ??Radial Site Prep: ??Chlorhexadine Local Anesthetic: ??None Insertion Attempts: ??1 Ultrasound-guided Placement: ??No Secure Method: ??Taped Patient Tolerance: ??Tolerated well us Mika Kang MD [place] ANESTHESIA Final Result documented in this encounter Visit Diagnoses Not on filedocumented in this encounter Administered Medications Inactive Administered Medications - up to 3 most recent administrations Medication Order MAR Action Action Date Dose Rate Site fentaNYL (SUBLIMAZE) injection Intravenous, PRN, Starting on Zulema 08/02/22 at 0736, Until Zulema 08/02/22 at 0931, Anesthesia Intra-Op Given 08/02/2022 8:31 AM COLOR SEPARATION PHOTOGRAPHER 50 mcg Given 08/02/2022 8:23 AM COLOR SEPARATION PHOTOGRAPHER 50 mcg Given 08/02/2022 7:36 AM COLOR SEPARATION PHOTOGRAPHER 100 mcg lactated ringers infusion Intravenous, Continuous PRN, Starting on Zulema 08/02/22 at 0729, Until Zulema 08/02/22 at 0931, Anesthesia Intra-Op New Bag 08/02/2022 7:29 AM COLOR SEPARATION PHOTOGRAPHER lidocaine (PF) (XYLOCAINE) 1 % injection Intravenous, PRN, Starting on Zulema 08/02/22 at 0736, Until Zulema 08/02/22 at 0931, Anesthesia Intra-Op Given 08/02/2022 7:36 AM COLOR SEPARATION PHOTOGRAPHER 100 mg midazolam (VERSED) injection Intravenous, PRN, Starting on Zulema 08/02/22 at 0733, Until Zulema 08/02/22 at 0931, Anesthesia Intra-Op Given 08/02/2022 7:33 AM COLOR SEPARATION PHOTOGRAPHER 2 mg ondansetron (ZOFRAN) injection Intravenous, PRN, Starting on Zulema 08/02/22 at 0845, Until Zulema 08/02/22 at 0931, Anesthesia Intra-Op Given 08/02/2022 8:45 AM COLOR SEPARATION PHOTOGRAPHER 4 mg phenylephrine (ERY-SYNEPHRINE) 10 mg in sodium chloride 0.9 % 250 mL infusion Intravenous, Continuous PRN, Starting on Zulema 08/02/22 at 0743, Until Zulema 08/02/22 at 0931, Anesthesia Intra-Op Rate/Dose Change 08/02/2022 8:52 AM COLOR SEPARATION PHOTOGRAPHER 40 mcg/min 60 mL/hr Rate/Dose Change 08/02/2022 8:40 AM COLOR SEPARATION PHOTOGRAPHER 60 mcg/min 90 mL/h r Restarted 08/02/2022 8:35 AM COLOR SEPARATION PHOTOGRAPHER 50 mcg/min 75 mL/hr propofol (DIPRIVAN) IV bolus Intravenous, PRN, Starting on Zulema 08/02/22 at 0737, Until Zulema 08/02/22 at 0931, Anesthesia Intra-Op Given 08/02/2022 9:06 AM COLOR SEPARATION PHOTOGRAPHER 40 mg Given 08/02/2022 7:37 AM COLOR SEPARATION PHOTOGRAPHER 120 mg rocuronium (ZEMURON) injection Intravenous, PRN, Starting on Zulema 08/02/22 at 0815, Until Zulema 08/02/22 at 0931, Anesthesia Intra-Op Given 08/02/2022 8:15 AM COLOR SEPARATION PHOTOGRAPHER 30 mg Given 08/02/2022 7:38 AM COLOR SEPARATION PHOTOGRAPHER 50 mg sodium chloride 0.9% infusion Intravenous, Continuous PRN, Starting on Zulema 08/02/22 at 0800, Until Zulema 08/02/22 at 0931, Anesthesia Intra-Op New Bag 08/02/2022 8:00 AM COLOR SEPARATION PHOTOGRAPHER sugammadex (BRIDION) injection Intravenous, PRN, Starting on Zulema 08/02/22 at 0846, Until Zulema 08/02/22 at 0931, Anesthesia Intra-Op Given 08/02/2022 8:46 AM COLOR SEPARATION PHOTOGRAPHER 200 mg documented in this encounter Care Teams Pharmacist Hospital Relationship Specialty Start Date End Date Mark Carmichael DO [address] [place] [address] PCP - General FAMILY PRACTICE 07/22/22 documented as of this encounter
--- OUTSIDE RECORDS SUMMARY | 2024-08-20 13:52 | XMS_ITS | Encounter Summary ---
Author Organization [facility] Address [address] [place] [address]. [place] [address] [place] [address] Care Team Providers Care Replenishment Merchandising Associate Name Role Phone Unavailable Primary Care Provider Unavailabl e Encounter Details Date Type Department Care Team (Late st Contact Info) Description 03/13/[address] [facility] [address] [place] [address] tEhan Ponce MD [address] [place] [phone] Social History Tobacco Use Types Packs/Day Years Used Date Smoking Tobacco: Never Assessed Sex and Gender Information Value Date Recorded Sex Assigned at Not on file Legal Sex Male 8:52 PM CDT Gender Identity Not on file Sexual Orientation Not on file documented as of this encounter Plan of Treatment Not on file documented as of this encounter Visit Diagnoses Diagnosis Gastritis without bleeding Unspecified gastritis and gastroduodenitis without mention of hemorrhage documented in this encounter
--- OUTSIDE RECORDS SUMMARY | 2024-08-20 13:52 | XMS_ITS | Encounter Summary ---
Author Organization [facility] Address [address] [place] [address]. [place] [address] [place] [address] Care Team Providers Care Office Rn Name Role Phone Mark Carmichael DO Primary Care Provider [phone] Reason for Visit * Reason Comments CT (SCAN) Encounter Details Date Type Department Care Team (Late st Contact Info) Description 07/25/2022 Scan [facility] Information [facility] [address] [place] [address] Scanned, Doc Hospital CT (SCAN) Social History Tobacco Use Types Packs/Day Years [...] Coronavirus/COVID-19? No / Unsure 07/31/2022 8:31 AM WATER MAINTENANCE SUPERVISOR documented as of this encounter Functional Status documented as of this encounter Mental Status * Question Answer Entry Date Author Status Because of a physical, mental, or emotional condition, do you have serious difficulty concentrating, remembering, or making decisions? No 07/25/2022 11:00 PM WATER MAINTENANCE SUPERVISOR Nan Vega RN Active documented in this encounter Plan of Treatment Not on file documented as of this encounter Goals Goal Patient Goal Type Associated Problems Recent Progress Patient-Stated? Author Family - family caregiver with be involved in care transitions and discharge planning Lifestyle No Angela Dawkins, PASTE WORKER documented as of this encounter Procedures Procedure Name Priority Date/Time Associated Diagnosis Comments CT GENERIC Routine 07/25/2022 12:00 AM WATER MAINTENANCE SUPERVISOR documented in this encounter Results * CT (07/25/2022 12:00 AM WATER MAINTENANCE SUPERVISOR) Anatomical Region Laterality Modality Other 07/25/2022 us Doc Hospital Scanned SCANNING Final Resul t documented in this encounter Visit Diagnoses Not on filedocumented in this encounter Additional Health Concerns Infection Onset Date Last Indicated Resolved Time COVID-19 Rule Out 07/25/2022 07/25/2022 08/01/2022 12:32 AM WATER MAINTENANCE SUPERVISOR documented as of this encounter Care Teams Office Rn Relationship Specialty Start Date End Date Mark Carmichael DO [address] [place] [address] PCP - General FAMILY PRACTICE 07/22/22 documented as of this encounter
--- OUTSIDE RECORDS SUMMARY | 2024-08-20 13:52 | XMS_ITS | Encounter Summary ---
Author Organization [facility] Address [address] [place] [address]. [place] [address] [place] [address] Care Team Providers Care Cytometry Technologist Name Role Phone Unavailable Primary Care Provider Unavailabl e Encounter Details Date Type Department Care Team (Late st Contact Info) Description 03/07/2004 Abstract [facility] [address] [place] [address] Brody Evans MD [address] [place] [phone] Social History Tobacco Use Types Packs/Day Years [...]
--- OUTSIDE RECORDS SUMMARY | 2024-08-20 13:52 | XMS_ITS | Encounter Summary ---
Author Organization [facility] Address [address] [place] [address]. [place] [address] [place] [address] Care Team Providers Care Telegraph Repeater Installer Name Role Phone Unavailable Primary Care Provider Unavailabl e Encounter Details Date Type Department Care Team (Late st Contact Info) Description 12/12/2009 Abstract [facility] [address] [facility] [place] [address] Clint Grayson MD [address] [place] [address] Social History Tobacco Use Types Packs/Day Years Used Date Smoking Tobacco: Never Assessed Sex and Gender Information Value Date Recorded Sex Assigned at Not on file Legal Sex Male 8:52 PM CDT Gender Identity Not on file Sexual Orientation Not on file documented as of this encounter Plan of Treatment Not on file documented as of this encounter Visit Diagnoses Diagnosis Drug-induced delirium documented in this encounter
--- OUTSIDE RECORDS SUMMARY | 2024-08-20 13:52 | XMS_ITS | Encounter Summary ---
Author Organization [facility] Address [address] [place] [address]. [place] [address] [place] [address] Care Team Providers Care Leather Coater Name Role Phone Unavailable Primary Care Provider Unavailabl e Encounter Details Date Type Department Care Team (Late st Contact Info) Description 10/23/2006 Abstract [facility] [address] [place] [address] Clint Grayson MD [address] [place] [address] Social History Tobacco Use Types [...]
--- OUTSIDE RECORDS SUMMARY | 2024-08-20 13:52 | XMS_ITS | Encounter Summary ---
Author Organization [facility] Address [address] [place] [address]. [place] [address] [place] [address] Care Team Providers Care Greeting Card Maker Name Role Phone Channing Panchal MD Primary Care Provider [phone] Encounter Details Date Type Department Care Team (Latest Contact Info) Description 08/17/2021 2:23 PM VIDEO AND SOUND RECORDER - 08/17/2021 11:59 PM VIDEO AND SOUND RECORDER Hospital Encounter [facility] [address] [facility] [place] [address] Ignacio Stephens MD [address] [address] Discharge Disposition: Home or Self Care (Routine Discharge) Social History Tobacco Use Types Packs/Day Years Used Date Smoking Tobacco: Never Assessed Sex and Gender Information Value Date Recorded Sex Assigned at Not on file Legal Sex Male 8:52 PM CDT Gender Identity Not on file Sexual Orientation Not on file COVID-19 Exposure Response Date Recorded In the last month, have you been in contact with someone who was confirmed or suspected to have Coronavirus / COVID-19? No / Unsure 08/17/2021 2:14 PM VIDEO AND SOUND RECORDER documented as of this encounter Medications at Time of Discharge VASCEPA 1 g capsule Take 2 g by mouth 2 (two) times daily. 08/11/2021 documented as of this encounter Plan of Treatment Not on file documented as of this encounter Procedures Procedure Name Priority Date/Time Associated Diagnosis Comments XR KNEE NELLY 3V Routine 08/17/2021 2:58 PM VIDEO AND SOUND RECORDER Bilateral knee pain XR HIP NELLY 2V Routine 08/17/2021 2:58 PM VIDEO AND SOUND RECORDER Bilateral hip pain XR THOR SPINE+SWIMMERS Routine 08/17/2021 2:58 PM VIDEO AND SOUND RECORDER Thoracic radiculitis XR PELVIS 1 OR 2 VIEWS Routine 08/17/2021 2:58 PM VIDEO AND SOUND RECORDER DJD (degenerative joint disease) XR FOREARM RT 2V Routine 08/17/2021 2:58 PM VIDEO AND SOUND RECORDER DJD (degenerative joint disease) XR ELBOW RT M3V Routine 08/17/2021 2:58 PM VIDEO AND SOUND RECORDER DJD (degenerative joint disease) XR CHEST PA+LAT Routine 08/17/2021 2:58 PM VIDEO AND SOUND RECORDER Chest pain documented in this encounter Results * XR FOREARM RT 2V (08/17/2021 2:58 PM VIDEO AND SOUND RECORDER) Anatomical Region Laterality Modality Forearm Radiographic Jasmina ging 08/17/2021 3:30 PM VIDEO AND SOUND RECORDER Impressions 08/17/2021 3:30 PM VIDEO AND SOUND RECORDER IMPRESSION: 1) No significant radiographic abnormality. Ordered By: IGNACIO STEPHENS Interpreted By: Nigel Peña MD, 08/17/2021 3:30 PM Narrative 08/17/2021 3:30 PM VIDEO AND SOUND RECORDER Examination: XR FOREARM RT 2V Exam time: 08/17/2021 2:58 PM Clinical history: DJD Comparison: None Technique: AP and lateral views of the right forearm Findings: No soft tissue abnormality. No evidence of acute fracture involving the radius. No evidence of acute ulnar fracture. Procedure Note Nigel Peña MD - 08/17/2021 Examination: XR FOREARM RT 2V Exam time: 08/17/2021 2:58 PM Clinical history: DJD Comparison: None Technique: AP and lateral views of the right forearm Findings: No soft tissue abnormality. No evidence of acute fractureinvolving the radius. No evidence of acute ulnar fracture. IMPRESSION: 1) No significant radiographic abnormality. Ordered By: IGNACIO STEPHENS Interpreted By: Nigel Peña MD, 08/17/2021 3:30 PM Ignacio Stephens MD [facility] IMAG[facility] Final Result * XR ELBOW RT M3V (08/17/2021 2:58 PM VIDEO AND SOUND RECORDER) Anatomical Region Laterality Modality Elbow Radiographic Jasmina ging 08/17/2021 3:29 PM VIDEO AND SOUND RECORDER Impressions 08/17/2021 3:30 PM VIDEO AND SOUND RECORDER IMPRESSION: 1) No significant radiographic abnormality. Ordered By: IGNACIO STEPHENS Interpreted By: Nigel Peña MD, 08/17/2021 3:29 PM Narrative 08/17/2021 3:30 PM VIDEO AND SOUND RECORDER Examination: XR ELBOW RT M3V Exam time: 08/17/2021 2:58 PM Clinical history: DJD Comparison: None Technique: AP, lateral and oblique views right elbow Findings: No soft tissue abnormality. No evidence of fat pad elevation. No fracture or dislocation. Joint spaces are well-maintained. Procedure Note Nigel Peña MD - 08/17/2021 Examination: XR ELBOW RT M3V Exam time: 08/17/2021 2:58 PM Clinical history: DJD Comparison: None Technique: AP, lateral and oblique views right elbow Findings: No soft tissue abnormality. No evidence of fat pad elevation. Nofracture or dislocation. Joint spaces are well-maintained. IMPRESSION: 1) No significant radiographic abnormality. Ordered By: IGNACIO STEPHENS Interpreted By: Nigel Peña MD, 08/17/2021 3:29 PM Ignacio Stephens MD GENERAL IMAG[facility] Final Result * XR KNEE NELLY 3V (08/17/2021 2:58 PM VIDEO AND SOUND RECORDER) Anatomical Region Laterality Modality Knee Radiographic Jasmina ging 08/18/2021 10:4 0 AM VIDEO AND SOUND RECORDER Impressions 08/18/2021 10:49 AM VIDEO AND SOUND RECORDER IMPRESSION: 1. No evidence to suggest acute cardiopulmonary abnormality. 2. Mild multilevel degenerative disc disease of the thoracic spine but no evidence of acute fracture or traumatic subluxation of the thoracic spine is seen. The thoracic spine is held in flexion with focal kyphosis centered at L1-2 and L2-3, better appreciated on the chest radiograph. 3. Mild to moderate osteoarthritis of the right hip and mild osteoarthritis of the left hip without evidence of acute fracture or malalignment. 4. Minimal osteoarthritis of both knees without evidence of acute fracture or malalignment. Ordered By: IGNACIO STEPHENS Interpreted By: Raheel Vela DO, 08/18/2021 10:40 AM Narrative 08/18/2021 10:49 AM VIDEO AND SOUND RECORDER Examination: XR KNEE NELLY 3V, XR HIP NELLY 2V, XR THOR SPINE+SWIMMERS, XR PELVIS 1 OR 2 VIEWS, XR CHEST PA+LAT Exam time: 08/17/2021 2:58 PM Clinical history: Chest pain, history of asbestos exposure. Thoracic radiculitis. Bilateral hip pain and knee pain, degenerative joint disease. Comparison: Chest radiograph 07/02/2013. Technique: PA and lateral views of the chest, AP, lateral, and swimmer's views of the thoracic spine, AP view of the pelvis, AP view of the hips and lateral views of each hip, and AP and sunrise views of the knees with additional lateral views of each knee. Findings: CHEST: The cardiomediastinal silhouette is normal in size. Pulmonary vasculature is normally distributed. There are atherosclerotic calcifications and tortuosity of the thoracic aorta. The lungs are clear of active opacities. There is no pleural effusion or pneumothorax. Thoracic spine: The upper thoracic spine is poorly visualized lateral views due to overlying anatomy. The patient's thoracic spine is held in flexion with focal kyphosis centered at L1-2 L2-3 better appreciated on the chest radiograph. Thoracic osseous alignment is maintained. The thoracic vertebral body heights are maintained. No evidence is seen to suggest acute fracture or traumatic subluxation of the thoracic spine. Mild multilevel degenerative disc disease affects the thoracic spine. Degenerative arthritis affects the visualized lower cervical spine. Posterior rods and screws at L3-4 are noted on the frontal view. Pelvis: The lower sacrum and coccyx are obscured due to overlying anatomy. No definite evidence is seen to suggest acute fracture or malalignment of the bones of the pelvis. Right hip: Mild to moderate osteoarthritis affects the right hip. No evidence of acute fracture or malalignment is seen. Atherosclerotic calcifications are noted. Left hip: Mild osteoarthritis affects the left hip. No evidence of acute fracture or malalignment is seen. Atherosclerotic calcifications are noted. Right knee: There is no substantial joint effusion. There is no evidence of acute fracture or malalignment. Tiny osteophytes suggest minimal osteoarthritis. Mild atherosclerotic calcifications are noted. Left knee: There is no substantial joint effusion. There is no evidence of acute fracture or malalignment. Tiny osteophytes suggest minimal osteoarthritis. Mild atherosclerotic calcifications are noted. Procedure Note Raheel Vela, - 08/18/2021 Examination: XR KNEE NELLY 3V, XR HIP NELLY 2V, XR THOR SPINE+SWIMMERS, XRPELVIS 1 OR 2 VIEWS, XR CHEST PA+LAT Exam time: 08/17/2021 2:58 PM Clinical history: Chest pain, history of asbestos exposure. Thoracicradiculitis. Bilateral hip pain and knee pain, degenerative joint disease. Comparison: Chest radiograph 07/02/2013. Technique: PA and lateral views of the chest, AP, lateral, and swimmer'sviews of the thoracic spine, AP view of the pelvis, AP view of the hipsand lateral views of each hip, and AP and sunrise views of the knees withadditional lateral views of each knee. Findings: CHEST: The cardiomediastinal silhouette is normal in size. Pulmonaryvasculature is normally distributed. There are atheroscleroticcalcifications and tortuosity of the thoracic aorta. The lungs are clearof active opacities. There is no pleural effusion or pneumothorax. Thoracic spine: The upper thoracic spine is poorly visualized lateral views due tooverlying anatomy. The patient's thoracic spine is held in flexion withfocal kyphosis centered at L1-2 L2-3 better appreciated on the chestradiograph. Thoracic osseous alignment is maintained. The thoracicvertebral body heights are maintained. No evidence is seen to suggestacute fracture or traumatic subluxation of the thoracic spine. Mildmultilevel degenerative disc disease affects the thoracic spine.Degenerative arthritis affects the visualized lower cervical spine.Posterior rods and screws at L3-4 are noted on the frontal view. Pelvis: The lower sacrum and coccyx are obscured due to overlying anatomy.No definite evidence is seen to suggest acute fracture or malalignment ofthe bones of the pelvis. Right hip: Mild to moderate osteoarthritis affects the right hip. Noevidence of acute fracture or malalignment is seen. Atheroscleroticcalcifications are noted. Left hip: Mild osteoarthritis affects the left hip. No evidence of acutefracture or malalignment is seen. Atherosclerotic calcifications arenoted. Right knee: There is no substantial joint effusion. There is no evidenceof acute fracture or malalignment. Tiny osteophytes suggest minimalosteoarthritis. Mild atherosclerotic calcifications are noted. Left knee: There is no substantial joint effusion. There is no evidence ofacute fracture or malalignment. Tiny osteophytes suggest minimalosteoarthritis. Mild atherosclerotic calcifications are noted. IMPRESSION: 1. No evidence to suggest acute cardiopulmonary abnormality. 2. Mild multilevel degenerative disc disease of the thoracic spine but noevidence of acute fracture or traumatic subluxation of the thoracic spineis seen. The thoracic spine is held in flexion with focal kyphosiscentered at L1-2 and L2-3, better appreciated on the chest radiograph. 3. Mild to moderate osteoarthritis of the right hip and mildosteoarthritis of the left hip without evidence of acute fracture ormalalignment. 4. Minimal osteoarthritis of both knees without evidence of acute fractureor malalignment. Ordered By: IGNACIO STEPHENS Interpreted By: Raheel Vela DO, 08/18/2021 10:40 AM Ignacio Stephens MD [facility] Final Result * XR HIP NELLY 2V (08/17/2021 2:58 PM VIDEO AND SOUND RECORDER) Anatomical Region Laterality Modality Hip, Pelvis Radiographic Jasmina ging 08/18/2021 10:4 0 AM VIDEO AND SOUND RECORDER Impressions 08/18/2021 10:49 AM VIDEO AND SOUND RECORDER IMPRESSION: 1. No evidence to suggest acute cardiopulmonary abnormality. 2. Mild multilevel degenerative disc disease of the thoracic spine but no evidence of acute fracture or traumatic subluxation of the thoracic spine is seen. The thoracic spine is held in flexion with focal kyphosis centered at L1-2 and L2-3, better appreciated on the chest radiograph. 3. Mild to moderate osteoarthritis of the right hip and mild osteoarthritis of the left hip without evidence of acute fracture or malalignment. 4. Minimal osteoarthritis of both knees without evidence of acute fracture or malalignment. Ordered By: IGNACIO STEPHENS Interpreted By: Raheel Vela DO, 08/18/2021 10:40 AM Narrative 08/18/2021 10:49 AM VIDEO AND SOUND RECORDER Examination: XR KNEE NELLY 3V, XR HIP NELLY 2V, XR THOR SPINE+SWIMMERS, XR PELVIS 1 OR 2 VIEWS, XR CHEST PA+LAT Exam time: 08/17/2021 2:58 PM Clinical history: Chest pain, history of asbestos exposure. Thoracic radiculitis. Bilateral hip pain and knee pain, degenerative joint disease. Comparison: Chest radiograph 07/02/2013. Technique: PA and lateral views of the chest, AP, lateral, and swimmer's views of the thoracic spine, AP view of the pelvis, AP view of the hips and lateral views of each hip, and AP and sunrise views of the knees with additional lateral views of each knee. Findings: CHEST: The cardiomediastinal silhouette is normal in size. Pulmonary vasculature is normally distributed. There are atherosclerotic calcifications and tortuosity of the thoracic aorta. The lungs are clear of active opacities. There is no pleural effusion or pneumothorax. Thoracic spine: The upper thoracic spine is poorly visualized lateral views due to overlying anatomy. The patient's thoracic spine is held in flexion with focal kyphosis centered at L1-2 L2-3 better appreciated on the chest radiograph. Thoracic osseous alignment is maintained. The thoracic vertebral body heights are maintained. No evidence is seen to suggest acute fracture or traumatic subluxation of the thoracic spine. Mild multilevel degenerative disc disease affects the thoracic spine. Degenerative arthritis affects the visualized lower cervical spine. Posterior rods and screws at L3-4 are noted on the frontal view. Pelvis: The lower sacrum and coccyx are obscured due to overlying anatomy. No definite evidence is seen to suggest acute fracture or malalignment of the bones of the pelvis. Right hip: Mild to moderate osteoarthritis affects the right hip. No evidence of acute fracture or malalignment is seen. Atherosclerotic calcifications are noted. Left hip: Mild osteoarthritis affects the left hip. No evidence of acute fracture or malalignment is seen. Atherosclerotic calcifications are noted. Right knee: There is no substantial joint effusion. There is no evidence of acute fracture or malalignment. Tiny osteophytes suggest minimal osteoarthritis. Mild atherosclerotic calcifications are noted. Left knee: There is no substantial joint effusion. There is no evidence of acute fracture or malalignment. Tiny osteophytes suggest minimal osteoarthritis. Mild atherosclerotic calcifications are noted. Procedure Note Raheel Vela, - 08/18/2021 Examination: XR KNEE NELLY 3V, XR HIP NELLY 2V, XR THOR SPINE+SWIMMERS, XRPELVIS 1 OR 2 VIEWS, XR CHEST PA+LAT Exam time: 08/17/2021 2:58 PM Clinical history: Chest pain, history of asbestos exposure. Thoracicradiculitis. Bilateral hip pain and knee pain, degenerative joint disease. Comparison: Chest radiograph 07/02/2013. Technique: PA and lateral views of the chest, AP, lateral, and swimmer'sviews of the thoracic spine, AP view of the pelvis, AP view of the hipsand lateral views of each hip, and AP and sunrise views of the knees withadditional lateral views of each knee. Findings: CHEST: The cardiomediastinal silhouette is normal in size. Pulmonaryvasculature is normally distributed. There are atheroscleroticcalcifications and tortuosity of the thoracic aorta. The lungs are clearof active opacities. There is no pleural effusion or pneumothorax. Thoracic spine: The upper thoracic spine is poorly visualized lateral views due tooverlying anatomy. The patient's thoracic spine is held in flexion withfocal kyphosis centered at L1-2 L2-3 better appreciated on the chestradiograph. Thoracic osseous alignment is maintained. The thoracicvertebral body heights are maintained. No evidence is seen to suggestacute fracture or traumatic subluxation of the thoracic spine. Mildmultilevel degenerative disc disease affects the thoracic spine.Degenerative arthritis affects the visualized lower cervical spine.Posterior rods and screws at L3-4 are noted on the frontal view. Pelvis: The lower sacrum and coccyx are obscured due to overlying anatomy.No definite evidence is seen to suggest acute fracture or malalignment ofthe bones of the pelvis. Right hip: Mild to moderate osteoarthritis affects the right hip. Noevidence of acute fracture or malalignment is seen. Atheroscleroticcalcifications are noted. Left hip: Mild osteoarthritis affects the left hip. No evidence of acutefracture or malalignment is seen. Atherosclerotic calcifications arenoted. Right knee: There is no substantial joint effusion. There is no evidenceof acute fracture or malalignment. Tiny osteophytes suggest minimalosteoarthritis. Mild atherosclerotic calcifications are noted. Left knee: There is no substantial joint effusion. There is no evidence ofacute fracture or malalignment. Tiny osteophytes suggest minimalosteoarthritis. Mild atherosclerotic calcifications are noted. IMPRESSION: 1. No evidence to suggest acute cardiopulmonary abnormality. 2. Mild multilevel degenerative disc disease of the thoracic spine but noevidence of acute fracture or traumatic subluxation of the thoracic spineis seen. The thoracic spine is held in flexion with focal kyphosiscentered at L1-2 and L2-3, better appreciated on the chest radiograph. 3. Mild to moderate osteoarthritis of the right hip and mildosteoarthritis of the left hip without evidence of acute fracture ormalalignment. 4. Minimal osteoarthritis of both knees without evidence of acute fractureor malalignment. Ordered By: IGNACIO STEPHENS Interpreted By: Raheel Vela DO, 08/18/2021 10:40 AM Ignacio Stephens MD [facility]AL [facility]AG[facility] Final Result * XR THOR SPINE+SWIMMERS (08/17/2021 2:58 PM VIDEO AND SOUND RECORDER) Anatomical Region Laterality Modality Spine Radiographic Jasmina ging 08/18/2021 10:4 0 AM VIDEO AND SOUND RECORDER Impressions 08/18/2021 10:49 AM VIDEO AND SOUND RECORDER IMPRESSION: 1. No evidence to suggest acute cardiopulmonary abnormality. 2. Mild multilevel degenerative disc disease of the thoracic spine but no evidence of acute fracture or traumatic subluxation of the thoracic spine is seen. The thoracic spine is held in flexion with focal kyphosis centered at L1-2 and L2-3, better appreciated on the chest radiograph. 3. Mild to moderate osteoarthritis of the right hip and mild osteoarthritis of the left hip without evidence of acute fracture or malalignment. 4. Minimal osteoarthritis of both knees without evidence of acute fracture or malalignment. Ordered By: IGNACIO STEPHENS Interpreted By: Raheel Vela DO, 08/18/2021 10:40 AM Narrative 08/18/2021 10:49 AM VIDEO AND SOUND RECORDER Examination: XR KNEE NELLY 3V, XR HIP NELLY 2V, XR THOR SPINE+SWIMMERS, XR PELVIS 1 OR 2 VIEWS, XR CHEST PA+LAT Exam time: 08/17/2021 2:58 PM Clinical history: Chest pain, history of asbestos exposure. Thoracic radiculitis. Bilateral hip pain and knee pain, degenerative joint disease. Comparison: Chest radiograph 07/02/2013. Technique: PA and lateral views of the chest, AP, lateral, and swimmer's views of the thoracic spine, AP view of the pelvis, AP view of the hips and lateral views of each hip, and AP and sunrise views of the knees with additional lateral views of each knee. Findings: CHEST: The cardiomediastinal silhouette is normal in size. Pulmonary vasculature is normally distributed. There are atherosclerotic calcifications and tortuosity of the thoracic aorta. The lungs are clear of active opacities. There is no pleural effusion or pneumothorax. Thoracic spine: The upper thoracic spine is poorly visualized lateral views due to overlying anatomy. The patient's thoracic spine is held in flexion with focal kyphosis centered at L1-2 L2-3 better appreciated on the chest radiograph. Thoracic osseous alignment is maintained. The thoracic vertebral body heights are maintained. No evidence is seen to suggest acute fracture or traumatic subluxation of the thoracic spine. Mild multilevel degenerative disc disease affects the thoracic spine. Degenerative arthritis affects the visualized lower cervical spine. Posterior rods and screws at L3-4 are noted on the frontal view. Pelvis: The lower sacrum and coccyx are obscured due to overlying anatomy. No definite evidence is seen to suggest acute fracture or malalignment of the bones of the pelvis. Right hip: Mild to moderate osteoarthritis affects the right hip. No evidence of acute fracture or malalignment is seen. Atherosclerotic calcifications are noted. Left hip: Mild osteoarthritis affects the left hip. No evidence of acute fracture or malalignment is seen. Atherosclerotic calcifications are noted. Right knee: There is no substantial joint effusion. There is no evidence of acute fracture or malalignment. Tiny osteophytes suggest minimal osteoarthritis. Mild atherosclerotic calcifications are noted. Left knee: There is no substantial joint effusion. There is no evidence of acute fracture or malalignment. Tiny osteophytes suggest minimal osteoarthritis. Mild atherosclerotic calcifications are noted. Procedure Note Raheel Vela, DO - 08/18/2021 Examination: XR KNEE NELLY 3V, XR HIP NELLY 2V, XR THOR SPINE+SWIMMERS, XRPELVIS 1 OR 2 VIEWS, XR CHEST PA+LAT Exam time: 08/17/2021 2:58 PM Clinical history: Chest pain, history of asbestos exposure. Thoracicradiculitis. Bilateral hip pain and knee pain, degenerative joint disease. Comparison: Chest radiograph 07/02/2013. Technique: PA and lateral views of the chest, AP, lateral, and swimmer'sviews of the thoracic spine, AP view of the pelvis, AP view of the hipsand lateral views of each hip, and AP and sunrise views of the knees withadditional lateral views of each knee. Findings: CHEST: The cardiomediastinal silhouette is normal in size. Pulmonaryvasculature is normally distributed. There are atheroscleroticcalcifications and tortuosity of the thoracic aorta. The lungs are clearof active opacities. There is no pleural effusion or pneumothorax. Thoracic spine: The upper thoracic spine is poorly visualized lateral views due tooverlying anatomy. The patient's thoracic spine is held in flexion withfocal kyphosis centered at L1-2 L2-3 better appreciated on the chestradiograph. Thoracic osseous alignment is maintained. The thoracicvertebral body heights are maintained. No evidence is seen to suggestacute fracture or traumatic subluxation of the thoracic spine. Mildmultilevel degenerative disc disease affects the thoracic spine.Degenerative arthritis affects the visualized lower cervical spine.Posterior rods and screws at L3-4 are noted on the frontal view. Pelvis: The lower sacrum and coccyx are obscured due to overlying anatomy.No definite evidence is seen to suggest acute fracture or malalignment ofthe bones of the pelvis. Right hip: Mild to moderate osteoarthritis affects the right hip. Noevidence of acute fracture or malalignment is seen. Atheroscleroticcalcifications are noted. Left hip: Mild osteoarthritis affects the left hip. No evidence of acutefracture or malalignment is seen. Atherosclerotic calcifications arenoted. Right knee: There is no substantial joint effusion. There is no evidenceof acute fracture or malalignment. Tiny osteophytes suggest minimalosteoarthritis. Mild atherosclerotic calcifications are noted. Left knee: There is no substantial joint effusion. There is no evidence ofacute fracture or malalignment. Tiny osteophytes suggest minimalosteoarthritis. Mild atherosclerotic calcifications are noted. IMPRESSION: 1. No evidence to suggest acute cardiopulmonary abnormality. 2. Mild multilevel degenerative disc disease of the thoracic spine but noevidence of acute fracture or traumatic subluxation of the thoracic spineis seen. The thoracic spine is held in flexion with focal kyphosiscentered at L1-2 and L2-3, better appreciated on the chest radiograph. 3. Mild to moderate osteoarthritis of the right hip and mildosteoarthritis of the left hip without evidence of acute fracture ormalalignment. 4. Minimal osteoarthritis of both knees without evidence of acute fractureor malalignment. Ordered By: IGNACIO STEPHENS Interpreted By: Raheel Vela DO, 08/18/2021 10:40 AM Ignacio Stephens MD GENERAL IMAGING Final Result * XR PELVIS 1 OR 2 VIEWS (08/17/2021 2:58 PM VIDEO AND SOUND RECORDER) Anatomical Region Laterality Modality Pelvis Radiographic Jasmina ging 08/18/2021 10:4 0 AM VIDEO AND SOUND RECORDER Impressions 08/18/2021 10:49 AM VIDEO AND SOUND RECORDER IMPRESSION: 1. No evidence to suggest acute cardiopulmonary abnormality. 2. Mild multilevel degenerative disc disease of the thoracic spine but no evidence of acute fracture or traumatic subluxation of the thoracic spine is seen. The thoracic spine is held in flexion with focal kyphosis centered at L1-2 and L2-3, better appreciated on the chest radiograph. 3. Mild to moderate osteoarthritis of the right hip and mild osteoarthritis of the left hip without evidence of acute fracture or malalignment. 4. Minimal osteoarthritis of both knees without evidence of acute fracture or malalignment. Ordered By: IGNACIO STEPHENS Interpreted By: Raheel Vela DO, 08/18/2021 10:40 AM Narrative 08/18/2021 10:49 AM VIDEO AND SOUND RECORDER Examination: XR KNEE NELLY 3V, XR HIP NELLY 2V, XR THOR SPINE+SWIMMERS, XR PELVIS 1 OR 2 VIEWS, XR CHEST PA+LAT Exam time: 08/17/2021 2:58 PM Clinical history: Chest pain, history of asbestos exposure. Thoracic radiculitis. Bilateral hip pain and knee pain, degenerative joint disease. Comparison: Chest radiograph 07/02/2013. Technique: PA and lateral views of the chest, AP, lateral, and swimmer's views of the thoracic spine, AP view of the pelvis, AP view of the hips and lateral views of each hip, and AP and sunrise views of the knees with additional lateral views of each knee. Findings: CHEST: The cardiomediastinal silhouette is normal in size. Pulmonary vasculature is normally distributed. There are atherosclerotic calcifications and tortuosity of the thoracic aorta. The lungs are clear of active opacities. There is no pleural effusion or pneumothorax. Thoracic spine: The upper thoracic spine is poorly visualized lateral views due to overlying anatomy. The patient's thoracic spine is held in flexion with focal kyphosis centered at L1-2 L2-3 better appreciated on the chest radiograph. Thoracic osseous alignment is maintained. The thoracic vertebral body heights are maintained. No evidence is seen to suggest acute fracture or traumatic subluxation of the thoracic spine. Mild multilevel degenerative disc disease affects the thoracic spine. Degenerative arthritis affects the visualized lower cervical spine. Posterior rods and screws at L3-4 are noted on the frontal view. Pelvis: The lower sacrum and coccyx are obscured due to overlying anatomy. No definite evidence is seen to suggest acute fracture or malalignment of the bones of the pelvis. Right hip: Mild to moderate osteoarthritis affects the right hip. No evidence of acute fracture or malalignment is seen. Atherosclerotic calcifications are noted. Left hip: Mild osteoarthritis affects the left hip. No evidence of acute fracture or malalignment is seen. Atherosclerotic calcifications are noted. Right knee: There is no substantial joint effusion. There is no evidence of acute fracture or malalignment. Tiny osteophytes suggest minimal osteoarthritis. Mild atherosclerotic calcifications are noted. Left knee: There is no substantial joint effusion. There is no evidence of acute fracture or malalignment. Tiny osteophytes suggest minimal osteoarthritis. Mild atherosclerotic calcifications are noted. Procedure Note Raheel Vela, DO - 08/18/2021 Examination: XR KNEE NELLY 3V, XR HIP NELLY 2V, XR THOR SPINE+SWIMMERS, XRPELVIS 1 OR 2 VIEWS, XR CHEST PA+LAT Exam time: 08/17/2021 2:58 PM Clinical history: Chest pain, history of asbestos exposure. Thoracicradiculitis. Bilateral hip pain and knee pain, degenerative joint disease. Comparison: Chest radiograph 07/02/2013. Technique: PA and lateral views of the chest, AP, lateral, and swimmer'sviews of the thoracic spine, AP view of the pelvis, AP view of the hipsand lateral views of each hip, and AP and sunrise views of the knees withadditional lateral views of each knee. Findings: CHEST: The cardiomediastinal silhouette is normal in size. Pulmonaryvasculature is normally distributed. There are atheroscleroticcalcifications and tortuosity of the thoracic aorta. The lungs are clearof active opacities. There is no pleural effusion or pneumothorax. Thoracic spine: The upper thoracic spine is poorly visualized lateral views due tooverlying anatomy. The patient's thoracic spine is held in flexion withfocal kyphosis centered at L1-2 L2-3 better appreciated on the chestradiograph. Thoracic osseous alignment is maintained. The thoracicvertebral body heights are maintained. No evidence is seen to suggestacute fracture or traumatic subluxation of the thoracic spine. Mildmultilevel degenerative disc disease affects the thoracic spine.Degenerative arthritis affects the visualized lower cervical spine.Posterior rods and screws at L3-4 are noted on the frontal view. Pelvis: The lower sacrum and coccyx are obscured due to overlying anatomy.No definite evidence is seen to suggest acute fracture or malalignment ofthe bones of the pelvis. Right hip: Mild to moderate osteoarthritis affects the right hip. Noevidence of acute fracture or malalignment is seen. Atheroscleroticcalcifications are noted. Left hip: Mild osteoarthritis affects the left hip. No evidence of acutefracture or malalignment is seen. Atherosclerotic calcifications arenoted. Right knee: There is no substantial joint effusion. There is no evidenceof acute fracture or malalignment. Tiny osteophytes suggest minimalosteoarthritis. Mild atherosclerotic calcifications are noted. Left knee: There is no substantial joint effusion. There is no evidence ofacute fracture or malalignment. Tiny osteophytes suggest minimalosteoarthritis. Mild atherosclerotic calcifications are noted. IMPRESSION: 1. No evidence to suggest acute cardiopulmonary abnormality. 2. Mild multilevel degenerative disc disease of the thoracic spine but noevidence of acute fracture or traumatic subluxation of the thoracic spineis seen. The thoracic spine is held in flexion with focal kyphosiscentered at L1-2 and L2-3, better appreciated on the chest radiograph. 3. Mild to moderate osteoarthritis of the right hip and mildosteoarthritis of the left hip without evidence of acute fracture ormalalignment. 4. Minimal osteoarthritis of both knees without evidence of acute fractureor malalignment. Ordered By: IGNACIO STEPHENS Interpreted By: Raheel Vela DO, 08/18/2021 10:40 AM Ignacio Stephens MD GENERAL IMAGING Final Result * XR CHEST PA+LAT (08/17/2021 2:58 PM VIDEO AND SOUND RECORDER) Anatomical Region Laterality Modality Chest Radiographic Jasmina ging 08/18/2021 10:4 0 AM VIDEO AND SOUND RECORDER Impressions 08/18/2021 10:49 AM VIDEO AND SOUND RECORDER IMPRESSION: 1. No evidence to suggest acute cardiopulmonary abnormality. 2. Mild multilevel degenerative disc disease of the thoracic spine but no evidence of acute fracture or traumatic subluxation of the thoracic spine is seen. The thoracic spine is held in flexion with focal kyphosis centered at L1-2 and L2-3, better appreciated on the chest radiograph. 3. Mild to moderate osteoarthritis of the right hip and mild osteoarthritis of the left hip without evidence of acute fracture or malalignment. 4. Minimal osteoarthritis of both knees without evidence of acute fracture or malalignment. Ordered By: IGNACIO STEPHENS Interpreted By: Raheel Vela DO, 08/18/2021 10:40 AM Narrative 08/18/2021 10:49 AM VIDEO AND SOUND RECORDER Examination: XR KNEE NELLY 3V, XR HIP NELLY 2V, XR THOR SPINE+SWIMMERS, XR PELVIS 1 OR 2 VIEWS, XR CHEST PA+LAT Exam time: 08/17/2021 2:58 PM Clinical history: Chest pain, history of asbestos exposure. Thoracic radiculitis. Bilateral hip pain and knee pain, degenerative joint disease. Comparison: Chest radiograph 07/02/2013. Technique: PA and lateral views of the chest, AP, lateral, and swimmer's views of the thoracic spine, AP view of the pelvis, AP view of the hips and lateral views of each hip, and AP and sunrise views of the knees with additional lateral views of each knee. Findings: CHEST: The cardiomediastinal silhouette is normal in size. Pulmonary vasculature is normally distributed. There are atherosclerotic calcifications and tortuosity of the thoracic aorta. The lungs are clear of active opacities. There is no pleural effusion or pneumothorax. Thoracic spine: The upper thoracic spine is poorly visualized lateral views due to overlying anatomy. The patient's thoracic spine is held in flexion with focal kyphosis centered at L1-2 L2-3 better appreciated on the chest radiograph. Thoracic osseous alignment is maintained. The thoracic vertebral body heights are maintained. No evidence is seen to suggest acute fracture or traumatic subluxation of the thoracic spine. Mild multilevel degenerative disc disease affects the thoracic spine. Degenerative arthritis affects the visualized lower cervical spine. Posterior rods and screws at L3-4 are noted on the frontal view. Pelvis: The lower sacrum and coccyx are obscured due to overlying anatomy. No definite evidence is seen to suggest acute fracture or malalignment of the bones of the pelvis. Right hip: Mild to moderate osteoarthritis affects the right hip. No evidence of acute fracture or malalignment is seen. Atherosclerotic calcifications are noted. Left hip: Mild osteoarthritis affects the left hip. No evidence of acute fracture or malalignment is seen. Atherosclerotic calcifications are noted. Right knee: There is no substantial joint effusion. There is no evidence of acute fracture or malalignment. Tiny osteophytes suggest minimal osteoarthritis. Mild atherosclerotic calcifications are noted. Left knee: There is no substantial joint effusion. There is no evidence of acute fracture or malalignment. Tiny osteophytes suggest minimal osteoarthritis. Mild atherosclerotic calcifications are noted. Procedure Note Raheel Vela DO - 08/18/2021 Examination: XR KNEE NELLY 3V, XR HIP NELLY 2V, XR THOR SPINE+SWIMMERS, XRPELVIS 1 OR 2 VIEWS, XR CHEST PA+LAT Exam time: 08/17/2021 2:58 PM Clinical history: Chest pain, history of asbestos exposure. Thoracicradiculitis. Bilateral hip pain and knee pain, degenerative joint disease. Comparison: Chest radiograph 07/02/2013. Technique: PA and lateral views of the chest, AP, lateral, and swimmer'sviews of the thoracic spine, AP view of the pelvis, AP view of the hipsand lateral views of each hip, and AP and sunrise views of the knees withadditional lateral views of each knee. Findings: CHEST: The cardiomediastinal silhouette is normal in size. Pulmonaryvasculature is normally distributed. There are atheroscleroticcalcifications and tortuosity of the thoracic aorta. The lungs are clearof active opacities. There is no pleural effusion or pneumothorax. Thoracic spine: The upper thoracic spine is poorly visualized lateral views due tooverlying anatomy. The patient's thoracic spine is held in flexion withfocal kyphosis centered at L1-2 L2-3 better appreciated on the chestradiograph. Thoracic osseous alignment is maintained. The thoracicvertebral body heights are maintained. No evidence is seen to suggestacute fracture or traumatic subluxation of the thoracic spine. Mildmultilevel degenerative disc disease affects the thoracic spine.Degenerative arthritis affects the visualized lower cervical spine.Posterior rods and screws at L3-4 are noted on the frontal view. Pelvis: The lower sacrum and coccyx are obscured due to overlying anatomy.No definite evidence is seen to suggest acute fracture or malalignment ofthe bones of the pelvis. Right hip: Mild to moderate osteoarthritis affects the right hip. Noevidence of acute fracture or malalignment is seen. Atheroscleroticcalcifications are noted. Left hip: Mild osteoarthritis affects the left hip. No evidence of acutefracture or malalignment is seen. Atherosclerotic calcifications arenoted. Right knee: There is no substantial joint effusion. There is no evidenceof acute fracture or malalignment. Tiny osteophytes suggest minimalosteoarthritis. Mild atherosclerotic calcifications are noted. Left knee: There is no substantial joint effusion. There is no evidence ofacute fracture or malalignment. Tiny osteophytes suggest minimalosteoarthritis. Mild atherosclerotic calcifications are noted. IMPRESSION: 1. No evidence to suggest acute cardiopulmonary abnormality. 2. Mild multilevel degenerative disc disease of the thoracic spine but noevidence of acute fracture or traumatic subluxation of the thoracic spineis seen. The thoracic spine is held in flexion with focal kyphosiscentered at L1-2 and L2-3, better appreciated on the chest radiograph. 3. Mild to moderate osteoarthritis of the right hip and mildosteoarthritis of the left hip without evidence of acute fracture ormalalignment. 4. Minimal osteoarthritis of both knees without evidence of acute fractureor malalignment. Ordered By: IGNACIO STEPHENS Interpreted By: Raheel Vela DO, 08/18/2021 10:40 AM Ignacio Stephens MD GENERAL IMAGING Final Result documented in this encounter Visit Diagnoses Diagnosis Chest pain Chest pain, unspecified DJD (degenerative joint disease) Osteoarthrosis, unspecified whether generalized or localized, unspecified site Thoracic radiculitis Thoracic or lumbosacral neuritis or radiculitis, unspecified Bilateral hip pain Pain in joint, pelvic region and thigh Bilateral knee pain Pain in joint, lower leg documented in this encounter Care Teams Greeting Card Maker Relationship Specialty Start Date End Date Channing Panchal MD [address] [place] [address] PCP - General INTERNAL MEDICINE 08/17/21 07/21/22 documented as of this encounter
--- OUTSIDE RECORDS SUMMARY | 2024-08-20 13:52 | XMS_ITS | Encounter Summary ---
Author Organization [facility] Address [address] [place] [address]. [place] [address] [place] [address] Care Team Providers Care Health And Safety Inspector Name Role Phone Unavailable Primary Care Provider Unavailabl e Encounter Details Date Type Department Care Team (Late st Contact Info) Description 12/04/2010 Abstract [facility] [address] [place] [address] , Nancy Mcfadden MD Social History Tobacco Use Types Packs/Day Years [...] Procedure Name Priority Date/Time Associated Diagnosis Comments EXTERNAL EJECTION FRACTION Routine 12/04/2010 12:00 AM CDT documented in this encounter Results * EXTERNAL EJECTION FRACTION (12/04/2010 12:00 AM CDT) EJECTION FRACTION [facility] Comment:LVEF Status: LV Gram - 55%, LV Wall Motion: NormalDiffuse Distal tapering of the distal LAD otherwise unobstructivecoronary arteriesRoss Lowe MD Anatomical Region Laterality Modality Other 12/04/2010 12/04/2010 Narrative 12/04/2010 12:00 AM CDT Left Heart Cath, Coronary Angiography, Left Ventriculogram, S & I - Coronaries, S & I - LV, Ross Lowe M.D. us Generic Conversion Md ROSAS OTHER Final R esult documented in this encounter Visit Diagnoses Not on filedocumented in this encounter
--- OUTSIDE RECORDS SUMMARY | 2024-08-20 13:52 | XMS_ITS | Encounter Summary ---
Author Organization [facility] Address [address] [place] [address]. [place] [address] [place] [address] Care Team Providers Care Temple Meat Cutter Name Role Phone Channing Panchal MD Primary Care Provider [phone] Encounter Details Date Type Department Care Team (Latest Contact Info) Description 08/22/2021 Travel Social History Tobacco Use Types Packs/Day [...] have Coronavirus / COVID-19? No / Unsure 08/22/2021 2:05 PM TRAVEL GUIDE documented as of this encounter Plan of Treatment Not on file documented as of this encounter Visit Diagnoses Not on filedocumented in this encounter Care Teams Temple Meat Cutter Relationship Specialty Start Date End Date Channing Panchal MD [address] [place] [address] PCP - General INTERNAL MEDICINE 08/17/21 07/21/22 documented as of this encounter
--- OUTSIDE RECORDS SUMMARY | 2024-08-20 13:52 | XMS_ITS | Encounter Summary ---
Author Organization [facility] Address [address] [place] [address]. [place] [address] [place] [address] Care Team Providers Care Domestic Helper Name Role Phone Unavailable Primary Care Provider Unavailabl e Encounter Details Date Type Department Care Team (Latest Contact Info) Description 04/07/2010 Abstract [facility] Social History Tobacco Use Types Packs/Day Years [...]
--- OUTSIDE RECORDS SUMMARY | 2024-08-20 13:52 | XMS_ITS | Encounter Summary ---
Author Organization [facility] Address [address] [place] [address]. [place] [address] [place] [address] Care Team Providers Care Student Financial Services Counselor Name Role Phone Unavailable Primary Care Provider Unavailabl e Encounter Details Date Type Department Care Team (Late st Contact Info) Description 07/14/2009 Abstract [facility] [address] [facility] [place] [address] Clint Grayson MD [address] [place] [address] Social History Tobacco Use Types Packs/Day Years Used Date Smoking Tobacco: Never Assessed Sex and Gender Information Value Date Recorded Sex Assigned at Not on file Legal Sex Male 8:52 PM CDT Gender Identity Not on file Sexual Orientation Not on file documented as of this encounter Plan of Treatment Not on file documented as of this encounter Visit Diagnoses Diagnosis Anemia Anemia, unspecified documented in this encounter
--- OUTSIDE RECORDS SUMMARY | 2024-08-20 13:52 | XMS_ITS | Encounter Summary ---
Author Organization [facility] Address [address] [place] [address]. [place] [address] [place] [address] Care Team Providers Care Senior Tax Specialist Name Role Phone Unavailable Primary Care Provider Unavailabl e Encounter Details Date Type Department Care Team (Late st Contact Info) Description 12/27/2002 Abstract [facility] [address] [place] [address] , Generic Conversion, Social History Tobacco Use Types Packs/Day Years [...]
--- OUTSIDE RECORDS SUMMARY | 2024-08-20 13:52 | XMS_ITS | Encounter Summary ---
Author Organization [facility] Address [address] [place] [address]. [place] [address] [place] [address] Care Team Providers Care Manager Floor Name Role Phone Channing Panchal MD Primary Care Provider [phone] Encounter Details Date Type Department Care Team (Latest Contact Info) Description 08/17/2021 Travel Social History Tobacco Use Types Packs/Day [...] COVID-19? No / Unsure 08/17/2021 2:14 PM LOFT WORKER documented as of this encounter Plan of Treatment Not on file documented as of this encounter Visit Diagnoses Not on filedocumented in this encounter Care Teams Manager Floor Relationship Specialty Start Date End Date Channing Panchal MD [address] [place] [address] PCP - General INTERNAL MEDICINE 08/17/21 07/21/22 documented as of this encounter
--- OUTSIDE RECORDS SUMMARY | 2024-08-20 13:52 | XMS_ITS | Encounter Summary ---
Author Organization [facility] Address [address] [place] [address]. [place] [address] [place] [address] Care Team Providers Care Optometrist Owner Name Role Phone Unavailable Primary Care Provider Unavailabl e Encounter Details Date Type Department Care Team (Late st Contact Info) Description 04/05/2017 Abstract [facility] [place] [address] Brent Marie MD [address] [place] [id number] Social History Tobacco Use Types Packs/Day Years Used Date Smoking Tobacco: Never Assessed Sex and Gender Information Value Date Recorded Sex Assigned at Not on file Legal Sex Male 8:52 PM CDT Gender Identity Not on file Sexual Orientation Not on file documented as of this encounter Plan of Treatment Not on file documented as of this encounter Visit Diagnoses Diagnosis Sprain of unspecified part of left wrist and hand, initial encounter documented in this encounter
--- OUTSIDE RECORDS SUMMARY | 2024-08-20 13:52 | XMS_ITS | Encounter Summary ---
Author Organization [facility] Address [address] [place] [address]. [place] [address] [place] [address] Care Team Providers Care Home Care Assistant Name Role Phone Unavailable Primary Care Provider Unavailabl e Encounter Details Date Type Department Care Team (Late st Contact Info) Description 03/26/2001 Abstract [facility] [address] [place] [address] , Generic Conversion, Social History Tobacco Use [...]
--- OUTSIDE RECORDS SUMMARY | 2024-08-20 13:52 | XMS_ITS | Encounter Summary ---
Author Organization [facility] Address [address] [place] [address]. [place] [address] [place] [address] Care Team Providers Care Supervisor Sawmill Name Role Phone Channing Panchal MD Primary Care Provider [phone] Reason for Referral * Imaging (Routine) - Closed Specialty Diagnoses / Procedures Referred By Amanda espinoza Referred To Contact RADIOLOGY Diagnoses Lumbosacral radiculitis Procedures CT LUMB SPINE WO CON Ignacio Stephens MD [address] [place] [id number] Phone: tel: fax: Referral ID Status Reason Start Date Expiration Date Visits Re quested Visits Authorized [id number] Closed 08/17/2021 09/17/2022 1 1 IZING LINE OPERATOR Reason for Visit * Imaging (Routine) - Closed Specialty Diagnoses / Procedures Referred By Amanda espinoza Referred To Contact RADIOLOGY Diagnoses Lumbosacral radiculitis Procedures [place] [address] [place] [address] Phone: tel: fax: Referral ID Status Reason Start Date Expiration Date Visits Re quested Visits Authorized [id number] Closed 08/17/2021 09/17/2022 1 1 Encounter Details Date Type Department Care Team (Latest Contact Info) Description 08/22/2021 2:08 PM ANODIZING LINE OPERATOR - 08/22/2021 11:59 PM ANODIZING LINE OPERATOR Hospital Encounter [facility] [address] [place] [address] Ignacio Stephens MD [address] [address] Discharge Disposition: Home or Self Care (Routine [...] COVID-19? No / Unsure 08/22/2021 2:05 PM ANODIZING LINE OPERATOR documented as of this encounter Medications at Time of Discharge VASCEPA 1 g capsule Take 2 g by mouth 2 (two) times daily. 08/11/2021 documented as of this encounter Plan of Treatment Not on file documented as of this encounter Procedures Procedure Name Priority Date/Time Associated Diagnosis Comments CT LUMB SPINE WO CON Routine 08/22/2021 2:22 PM ANODIZING LINE OPERATOR Lumbosacral radiculitis documented in this encounter Results * CT LUMB SPINE WO CON (08/22/2021 2:22 PM ANODIZING LINE OPERATOR) Anatomical Region Laterality Modality Spine Computed Tomogra phy 08/23/2021 10:2 9 AM ANODIZING LINE OPERATOR Impressions 08/23/2021 10:38 AM ANODIZING LINE OPERATOR IMPRESSION: 1. 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 Ordered By: IGNACIO STEPHENS Interpreted By: Car Tang MD, 08/23/2021 10:29 AM Narrative 08/23/2021 10:38 AM ANODIZING LINE OPERATOR DATE: 08/22/2021 2:22 PM INDICATION: Low back pain radiating down bilateral legs. History of prior lumbar surgeries. EXAMINATION: CT examination of the lumbar spine. TECHNIQUE: CT examination of the lumbar spine was performed with axial and multiplanar reformatted images obtained. A dose lowering technique was used for this procedure, which may include, but is not limited to, dose reduction technique, automated exposure control, the use of iterative reconstruction, and ALARA (As Low As Reasonably Achievable) / Image Gently techniques. COMPARISON: MRI 05/07/2017. Lumbar spine CT 04/06/2009 FINDINGS: There are 5 nonrib-bearing lumbar-type vertebral levels identified. Again seen are postsurgical changes of prior L3 and L4 laminectomies and posterior fusion. Surgical hardware appears intact and without evidence of fracture or loosening. There is material osseous fusion of the L3-L4 and L2-L3 facets, and partial ankylosis of the L3-L4 intervertebral disc. There is focal mid lumbar kyphosis. Grade 1 retrolisthesis of L4 on L5 and L5 on S1. Otherwise the lumbar vertebral alignment, vertebral body heights, and facet alignment are maintained. Multilevel degenerative changes are evident in the lumbar spine with disc degeneration, endplate osteophytes, ligamentum flavum thickening, and facet hypertrophy noted. Multilevel intradiscal vacuum cleft phenomenon. Greatest loss of disc height with adjacent reactive/endplate sclerosis at L5-S1. Imaged portions of the soft tissues reveal no acute findings. Atherosclerotic calcifications of the aorta and its branches. Hiatal hernia. Localized region of heterogeneous lucency and sclerosis and the posterior left iliac bone, similar to prior CT, likely benign. T10-T11: Facet hypertrophy. No canal or foraminal narrowing. T11-T12: Small left paracentral/foraminal protrusion. Ligamentous/facet hypertrophy. No canal or foraminal narrowing. T12-L1: Ligamentous/facet hypertrophy. No canal or foraminal narrowing. L1-L2: Ligamentous/facet hypertrophy. Flattening of the dorsolateral thecal sac, more so on the left. No significant foraminal narrowing. L2-L3: Partial ankylosis of the intervertebral disc. Ligamentous/facet hypertrophy. Ankylosis of the facets. No significant canal or foraminal narrowing. L3-L4: Osseous spinal canal decompressed after laminectomy. Posterior marginal endplate osteophytes. Ankylosis of the facets and partial ankylosis of the disc. No significant foraminal narrowing. L4-L5: Retrolisthesis. Disc bulge with extension into the foramina. Facet hypertrophy. Bilateral lateral recess and mild canal stenosis. Marginal endplate osteophytes. Mild foraminal narrowing L5-S1: Retrolisthesis. Disc and posterior/marginal endplate osteophyte complex. Ligamentum flavum thickening. Facet hypertrophy. Possible superimposed left subarticular protrusion. Left greater than right lateral recess and at least mild canal stenosis. Moderate to severe foraminal narrowing. Procedure Note Car Tang MD - 08/23/2021 DATE: 08/22/2021 2:22 PM INDICATION: Low back pain radiating down bilateral legs. History of prior lumbarsurgeries. EXAMINATION: CT examination of the lumbar spine. TECHNIQUE: CT examination of the lumbar spine was performed with axial andmultiplanar reformatted images obtained. A dose lowering technique was used for this procedure, which may include,but is not limited to, dose reduction technique, automated exposurecontrol, the use of iterative reconstruction, and ALARA (As Low AsReasonably Achievable) / Image Gently techniques. COMPARISON: MRI 05/07/2017. Lumbar spine CT 04/06/2009 FINDINGS: There are 5 nonrib-bearing lumbar-type vertebral levels identified. Againseen are postsurgical changes of prior L3 and L4 laminectomies andposterior fusion. Surgical hardware appears intact and without evidence offracture or loosening. There is material osseous fusion of the L3-L4 andL2-L3 facets, and partial ankylosis of the L3-L4 intervertebral disc.There is focal mid lumbar kyphosis. Grade 1 retrolisthesis of L4 on L5 andL5 on S1. Otherwise the lumbar vertebral alignment, vertebral bodyheights, and facet alignment are maintained. Multilevel degenerativechanges are evident in the lumbar spine with disc degeneration, endplateosteophytes, ligamentum flavum thickening, and facet hypertrophy noted.Multilevel intradiscal vacuum cleft phenomenon. Greatest loss of discheight with adjacent reactive/endplate sclerosis at L5-S1. Imaged portions of the soft tissues reveal no acute findings.Atherosclerotic calcifications of the aorta and its branches. Hiatalhernia. Localized region of heterogeneous lucency and sclerosis and theposterior left iliac bone, similar to prior CT, likely benign. T10-T11: Facet hypertrophy. No canal or foraminal narrowing. T11-T12: Small left paracentral/foraminal protrusion. Ligamentous/facethypertrophy. No canal or foraminal narrowing. T12-L1: Ligamentous/facet hypertrophy. No canal or foraminal narrowing. L1-L2: Ligamentous/facet hypertrophy. Flattening of the dorsolateralthecal sac, more so on the left. No significant foraminal narrowing. L2-L3: Partial ankylosis of the intervertebral disc. Ligamentous/facethypertrophy. Ankylosis of the facets. No significant canal or foraminalnarrowing. L3-L4: Osseous spinal canal decompressed after laminectomy. Posteriormarginal endplate osteophytes. Ankylosis of the facets and partialankylosis of the disc. No significant foraminal narrowing. L4-L5: Retrolisthesis. Disc bulge with extension into the foramina. Facethypertrophy. Bilateral lateral recess and mild canal stenosis. Marginalendplate osteophytes. Mild foraminal narrowing L5-S1: Retrolisthesis. Disc and posterior/marginal endplate osteophytecomplex. Ligamentum flavum thickening. Facet hypertrophy. Possiblesuperimposed left subarticular protrusion. Left greater than right lateralrecess and at least mild canal stenosis. Moderate to severe foraminalnarrowing. IMPRESSION: 1. Post surgical and multilevel degenerative changes in the lower thoracicand lumbar spine as detailed above. Ordered By: IGNACIO STEPHENS Interpreted By: Car Tang MD, 08/23/2021 10:29 AM Ignacio Stephens MD CT Final Result documented in this encounter Visit Diagnoses Diagnosis Lumbosacral radiculitis Thoracic or lumbosacral neuritis or radiculitis, unspecified documented in this encounter Care Teams Supervisor Sawmill Relationship Specialty Start Date End Date Channing Panchal MD [address] [place] [address] PCP - General INTERNAL MEDICINE 08/17/21 07/21/22 documented as of this encounter
--- OUTSIDE RECORDS SUMMARY | 2024-08-20 13:52 | XMS_ITS | Encounter Summary ---
Author Organization [facility] Address [address] [place] [address]. [place] [address] [place] [address] Care Team Providers Care Liquid Flavor Compounder Name Role Phone Unavailable Primary Care Provider Unavailabl e Encounter Details Date Type Department Care Team (Late st Contact Info) Description 12/28/2002 Abstract [facility] [address] [place] [address] , Generic Conversion, Social History Tobacco Use [...]
--- OUTSIDE RECORDS SUMMARY | 2024-08-20 13:52 | XMS_ITS | Encounter Summary ---
Author Organization [facility] Address [address] [place] [address]. [place] [address] [place] [address] Care Team Providers Care Lpn Cma Name Role Phone Unavailable Primary Care Provider Unavailabl e Encounter Details Date Type Department Care Team (Late st Contact Info) Description 01/01/2002 Abstract [facility] [address] [place] [address] , Generic Conversion, Social History Tobacco Use [...]
--- OUTSIDE RECORDS SUMMARY | 2024-08-20 13:52 | XMS_ITS | Encounter Summary ---
Author Organization [facility] Address [address] [place] [address]. [place] [address] [place] [address] Care Team Providers Care Assembler Molded Frames Name Role Phone Unavailable Primary Care Provider Unavailabl e Encounter Details Date Type Department Care Team (Late st Contact Info) Description 03/09/2009 Abstract [facility] [address] [facility] [place] [address] Clint Grayson MD [address] [place] [address] Social History Tobacco Use Types Packs/Day Years Used Date Smoking Tobacco: Never Assessed Sex and Gender Information Value Date Recorded Sex Assigned at Not on file Legal Sex Male 8:52 PM CDT Gender Identity Not on file Sexual Orientation Not on file documented as of this encounter Plan of Treatment Not on file documented as of this encounter Visit Diagnoses Diagnosis Other malaise and fatigue documented in this encounter
--- OUTSIDE RECORDS SUMMARY | 2024-08-20 13:52 | XMS_ITS | Encounter Summary ---
Author Organization [facility] Address [address] [place] [address]. [place] [address] [place] [address] Care Team Providers Care Vaccines Solutions Specialist Name Role Phone Unavailable Primary Care Provider Unavailabl e Encounter Details Date Type Department Care Team (Late st Contact Info) Description 04/06/2009 Abstract [facility] [address] [place] [address] [place] [address] [place] [phone] Social History Tobacco Use Types Packs/Day Years Used Date Smoking Tobacco: Never Assessed Sex and Gender Information Value Date Recorded Sex Assigned at Not on file Legal Sex Male 8:52 PM CDT Gender Identity Not on file Sexual Orientation Not on file documented as of this encounter Plan of Treatment Not on file documented as of this encounter Visit Diagnoses Diagnosis Urinary hesitancy documented in this encounter
--- OUTSIDE RECORDS SUMMARY | 2024-08-20 13:52 | XMS_ITS | Encounter Summary ---
Author Organization [facility] Address [address] [place] [address]. [place] [address] [place] [address] Care Team Providers Care Hooker Off Name Role Phone Unavailable Primary Care Provider Unavailabl e Encounter Details Date Type Department Care Team (Late st Contact Info) Description 04/12/[address] [facility] [place] [address] [place] [address] [place] [phone] Social History Tobacco Use Types Packs/Day Years Used Date Smoking Tobacco: Never Assessed Sex and Gender Information Value Date Recorded Sex Assigned at Not on file Legal Sex Male 8:52 PM CDT Gender Identity Not on file Sexual Orientation Not on file documented as of this encounter Plan of Treatment Not on file documented as of this encounter Visit Diagnoses Diagnosis Follow-up examination, following other surgery documented in this encounter
--- OUTSIDE RECORDS SUMMARY | 2024-08-20 13:52 | XMS_ITS | Encounter Summary ---
Author Organization [facility] Address [facility] [place] [address] [place] [address] Care Team Providers Care Candy Wrapping Machine Operator Name Role Phone Mark Carmichael DO Primary Care Provider [phone] Reason for Visit * Auth/Cert (Routine) Specialty Diagnoses / Procedures Referred By Contac t Referred To Contact Diagnoses Respiratory failure (CMS/HCC [facility]/HCC) Acute respiratory failure Respiratory failure ([facility]) Procedures NONE De Villasenor MD [address] [place] [address] Phone: tel: fax: Referral ID Status Reason Start Date Expiration Date Visits Re quested Visits Authorized [id number] 1 1 Encounter Details Date Type Department Care Team (Late st Contact Info) Description 07/30/2022 3:06 PM [facility] Anesthesia Event [facility] [address] [place] [address] Nicole Lamar MD [address] [place] [address] Brody Rm CRNA [address] [place] [address] [place] [id number] Anesthesia Record Procedure Summary Procedure Name Responsible Anesthesiologist Anesthesia Start Time Anesthesia Stop Time DIAGNOSTIC BRONCHOSCOPY, BAL OF RIGHT LOWER LOBE (Bilateral: Throat) Nicole Lamar MD 07/30/22 1506 07/30/22 1551 Events Date Time Event Comment 07/30/2022 1506 An Start Patient ID and consent checked and patient reassessed. 1506 An Start Data 1511 1511 AN Anesthesia Prepped 1514 Preoxygenation 1516 AN MEDICAL RECORDS CUSTODIAN Prepped 1523 An Induction The patient was reevaluated immediately before moderate or deep sedation use and before anesthesia induction. 1525 An Intubation 1526 Anesthesia Ready 1545 An Extubation 1547 an stop data 1551 Post Anesthetic Care Handoff I completed my handoff to the receiving nurse during which we: 1. Identified the patient 2. Identified the responsible provider 3. Reviewed the pertinent medical history 4. Discussed the surgical course 5. Reviewed intra-op anesthesia management and issues during anesthesia 6. Set expectations for post-procedure period 7. Allowed opportunity for questions and acknowledgement of understanding. 1551 An Stop Meds Name Total fentaNYL (SUBLIMAZE) 100 mcg/2 mL inject ion 50 mcg lidocaine (PF) (XYLOCAINE) 1% injection 50 mg propofol (DIPRIVAN) 200 mg/20 mL injecti on 120 mg phenylephrine (REY-SYNEPHRINE) 1 mg/10 m L IV premix syringe 400 mcg ondansetron (ZOFRAN) injection 4 mg succinylcholine (ANECTINE) 20 mg/mL inje ction 60 mg lactated ringers infusion 500 mL * Agents Name O2 Air Inspired Sevoflurane Sevoflurane * Blood No blood administrations on file. Lines, Drains, and Airways Type Details Placement Removal Midline Single Lumen Placement Date: 07/27/22; Placement Time: 1121; Placed Outside of This Facility?: No; Orientation: Left; Location: Basilic; Site Prep: Chlorhexidine; Local Anesthetic: Injectable; Inserted By: KIKO GROSS MD; Insertion attempts: 1; Ultrasound-guided Placement?: Yes; Patient Tolerance: Tolerated well 07/27/22 1121 by IESHA Landin Chest Tube Placement Date: 07/27/22; Placement Time: 1023; Inserted By: Dr. Osuna; Tube Number: 1; Orientation: Right; Location: Pleural; Size: 12 Fr.; Drainage System: Suction; Removal Date: 08/02/22; Removal Time: 0800; Removal Reason: Other (removed during procedure by ) 07/27/22 1023 by Izzy Leslie RN 08/02/22 0800 by Carmen Blake RN ETT Placement Date: 07/30/22; Placement Time: 1525; Placed Outside of This Facility?:No; Mask Ventilate: Easy; Size (mm) : 8; Endotracheal: Oral; Blade Type: Other (comment); LTA: Yes; Placement Method: Video Laryngoscope (see comments); View Grade: 1; Viewable Anatomy: Epiglottis, Arytenoid, Vocal cords; Insertion Attempts: 1; Placement Verified By: Capnography, Auscultation, Chest Rise; Placed By: AVTAR; Removal Date: 07/30/22; Removal Time: 1545 07/30/22 1525 by Sheron Betancourt CRNA 07/30/22 1545 by Sheron Betancourt CRNA Surgical/Incision 07/30/22; 1534; Surg ical Wound; Throat; no dressing needed ; 08/08/22; 1352 07/30/22 1534 by Janice Houser RN 08/08/22 1352 by Automatic Discharge Provider documented in this encounter Social History Tobacco [...] Coronavirus/COVID-19? No / Unsure 07/30/2022 6:53 AM [facility] documented as of this encounter Functional Status * RETIRED Are you deaf or do you have serious difficulty hearing Answer Date of Assessment Author Status No 07/25/2022 11:00 PM [facility] Acti ve * RETIRED Are you blind or do you have serious difficulty seeing, even when wearing glasses? Answer Date of Assessment Author Status No 07/25/2022 11:00 PM [facility] Acti ve * Do you have serious difficulty walking or climbing stairs? Answer Date of Assessment Author Status No 07/25/2022 11:00 PM [facility] Katie Vega ma, RN Active * Do you have difficulty dressing or bathing? Answer Date of Assessment Author Status No 07/25/2022 11:00 PM [facility] Katie Vega ma, RN Active * Because of a physical, mental, or emotional condition, do you have difficulty doing errands alone such as visiting a doctor's office or shopping? Answer Date of Assessment Author Status No 07/25/2022 11:00 PM [facility] Katie Vega ma, RN Active documented as of this encounter Mental Status * Because of a physical, mental, or emotional condition, do you have serious difficulty concentrating, remembering, or making decisions? Answer Entry Date Author Status No 07/25/2022 11:00 PM [facility] Katie Vega ma, RN Active documented in this encounter OR Notes * Anesthesia Postprocedure Evaluation - Nicole Lamar MD - 07/30/2022 4:13 PM CST Anesthesia Post-op Note Ray Ashley Procedure(s): DIAGNOSTIC BRONCHOSCOPY, BAL OF RIGHT LOWER LOBE (Bilateral: Throat) Anesthesia type: general Vitals: 07/30/22 1555 BP: 94/63 Vitals: 07/30/22 1555 Pulse: 54 Vitals: 07/30/22 1600 Resp: 18 Vitals: 07/30/22 1550 Temp: 36.9 ??C Vitals: 07/30/22 1555 SpO2: 99% Patient Location: PACU Level of Consciousness: awake Pain Management: adequate analgesia Airway Patency: patent Respiratory Status: acceptable and room air Cardiovascular Status: acceptable Post-Op Nausea: none Postoperative Hydration: euvolemic No notable events documented. [facility] * Anesthesia Preprocedure Evaluation - Nicole Lamar MD - 07/30/2022 7:39 AM CST Anesthesia ROS/MED History Reviewed: Anesthesia history , Medications , Labs , Images/Studies , Unchecked boxes are not applicable Pre-Anesthetic State: awake, responds appropriately and alert Pulmonary (+) pneumonia (necrotizing pneumonia of RLL, loculated right pleural effusion), COPD, shortness of breath, smoker ROS comment: Acute hypoxic respiratory failure, possible pulmonary edema 07/27/22 cxr: 1. Right basilar pigtail catheter remains in place. Unchanged hazy opacity at the lateral lower right lung zone likely related to loculated pleural effusion. 2. Small layering left pleural effusion with adjacent atelectasis or airspace disease at the left lung base may be slightly increased from most recent study. Subtle hazy opacities in the left mid andupper lung not significantly changed, could also relate to atelectasis or infiltrate. Cardiovascular neg cardio ROS ROS comment: Pericardial effusion 07/27/22 ECHO The [...] fx of L3, lumbar spondylosis GI/Hepatic/Renal Comments: Spleenomegaly Endo/Other (+) blood dyscrasia, (Anemia) GENERAL COMMENTS H&P noted 07/25/22 Physical Evaluation Airway Mallampati: II TM Distance: >3 FB Neck ROM: normal Dental (edentulous) Pulmonary (+) decreased breath sounds, (diminished bilaterally) Cardiovascular Rhythm: regular Rate: normal Anesthesia Plan ASA 2 Intravenous Induction Anesthesia type: general Plan for Airway: ETT and mask management Informed Consent Anesthetic plan and risks discussed with patient (patient understands/accepts the risks of anesthesia including but not limited to intraoperative awareness,stroke, NV, and .) of whom consent wasobtained. Consent of blood products not discussed. . [facility] documented in this encounter Plan of Treatment Not on file documented as of this encounter Goals Goal Patient Goal Type Associated Problems Recent Progress Patient-Stated? Author Family - family caregiver with be involved in care transitions and discharge planning Lifestyle No Angela Dawkins, VASCULAR SURGERY PHYSICIAN documented as of this encounter Visit Diagnoses Not on filedocumented in this encounter Administered Medications Inactive Administered Medications - up to 3 most recent administrations Medication Order MAR Action Action Date Dose Rate Site fentaNYL (SUBLIMAZE) injection Intravenous, PRN, Starting on Sat07/30/22 at 1521, Until Sat07/30/22 at 1551, Anesthesia Intra-Op Given 07/30/2022 3:21 PM [facility] 50 mcg lactated ringers infusion Intravenous, Continuous PRN, Starting on Sat07/30/22 at 1505, Until Sat07/30/22 at 1551, Anesthesia Intra-Op New Bag 07/30/2022 3:05 PM [facility] lidocaine (PF) (XYLOCAINE) 1 % injection Intravenous, PRN, Starting on Sat07/30/22 at 1521, Until Sat07/30/22 at 1551, Anesthesia Intra-Op Given 07/30/2022 3:21 PM [facility] 50 mg ondansetron (ZOFRAN) injection Intravenous, PRN, Starting on Sat07/30/22 at 1535, Until Sat07/30/22 at 1551, Anesthesia Intra-Op Given 07/30/2022 3:35 PM [facility] 4 mg phenylephrine (REY-SYNEPHRINE) injection Intravenous, PRN, Starting on Sat07/30/22 at 1523, Until Sat07/30/22 at 1551, Anesthesia Intra-Op Given 07/30/2022 3:50 PM [facility] 100 mcg Given 07/30/2022 3:27 PM [facility] 200 mcg Given 07/30/2022 3:23 PM [facility] 100 mcg propofol (DIPRIVAN) IV bolus Intravenous, PRN, Starting on Sat07/30/22 at 1523, Until Sat07/30/22 at 1551, Anesthesia Intra-Op Given 07/30/2022 3:23 PM [facility] 120 mg succinylcholine (ANECTINE) injection Intravenous, PRN, Starting on Sat07/30/22 at 1523, Until Sat07/30/22 at 1551, Anesthesia Intra-Op Given 07/30/2022 3:23 PM [facility] 60 mg documented in this encounter Additional Health Concerns Infection Onset Date Last Indicated Resolved Time COVID-19 Rule Out 07/25/2022 07/25/2022 08/01/2022 12:32 AM [facility] documented as of this encounter Care Teams Candy Wrapping Machine Operator Relationship Specialty Start Date End Date Mark Carmichael DO [address] [place] [address] PCP - General FAMILY PRACTICE 07/22/22 documented as of this encounter
--- OUTSIDE RECORDS SUMMARY | 2024-08-20 13:52 | XMS_ITS | Encounter Summary ---
Author Organization [facility] Address [address] [place] [address]. [place] [address] [place] [address] Care Team Providers Care Button Pusher Name Role Phone Unavailable Primary Care Provider Unavailabl e Encounter Details Date Type Department Care Team (Late st Contact Info) Description 03/01/2010 Abstract [facility] [address] [facility] [place] [address] Social History Tobacco Use Types Packs/Day Years Used Date Smoking Tobacco: Never Assessed Sex and Gender Information Value Date Recorded Sex Assigned at Not on file Legal Sex Male 8:52 PM CDT Gender Identity Not on file Sexual Orientation Not on file documented as of this encounter Plan of Treatment Not on file documented as of this encounter Visit Diagnoses Diagnosis Other chest pain documented in this encounter
--- OUTSIDE RECORDS SUMMARY | 2024-08-20 13:52 | XMS_ITS | Encounter Summary ---
Author Organization [facility] Address [address] [place] [address]. [place] [address] [place] [address] Care Team Providers Care Barrel Tester Name Role Phone Unavailable Primary Care Provider Unavailabl e Encounter Details Date Type Department Care Team (Late st Contact Info) Description 04/08/2007 Abstract [facility] [address] [facility] [address] Clint Grayson MD [address] [place] [address] Social History Tobacco Use Types [...]
--- OUTSIDE RECORDS SUMMARY | 2024-08-20 13:52 | XMS_ITS | Encounter Summary ---
Author Organization [facility] Address [address] [place] [address]. [place] [address] [place] [address] Care Team Providers Care Patient Care Technician Name Role Phone Unavailable Primary Care Provider Unavailabl e Encounter Details Date Type Department Care Team (Late st Contact Info) Description 11/25/2010 Abstract [facility] [address] [place] [address] Clint Grayson MD [address] [place] [address] Social History Tobacco Use Types Packs/Day Years Used Date Smoking Tobacco: Never Assessed Sex and Gender Information Value Date Recorded Sex Assigned at Not on file Legal Sex Male 8:52 PM CDT Gender Identity Not on file Sexual Orientation Not on file documented as of this encounter Plan of Treatment Not on file documented as of this encounter Visit Diagnoses Diagnosis Fever due to unspecified condition documented in this encounter
--- OUTSIDE RECORDS SUMMARY | 2024-08-20 13:52 | XMS_ITS | Encounter Summary ---
Author Organization [facility] Address [address] [place] [address]. [place] [address] [place] [address] Care Team Providers Care Compressor Station Operator Name Role Phone Unavailable Primary Care Provider Unavailabl e Encounter Details Date Type Department Care Team (Late st Contact Info) Description 03/27/2004 Abstract [facility] [address] [address] Brody Evans MD [address] [place] [phone] Social History Tobacco Use Types Packs/Day Years [...]
--- OUTSIDE RECORDS SUMMARY | 2024-08-20 13:52 | XMS_ITS | Encounter Summary ---
Author Organization [facility] Address [address] [place] [address]. [place] [address] [place] [address] Care Team Providers Care Mid Level Clinician Name Role Phone Unavailable Primary Care Provider Unavailabl e Encounter Details Date Type Department Care Team (Late st Contact Info) Description 04/18/[address] [facility] [place] [address] [place] [address] [place] [phone] Social History Tobacco Use Types Packs/Day Years [...]
--- OUTSIDE RECORDS SUMMARY | 2024-08-20 13:52 | XMS_ITS | Encounter Summary ---
Author Organization [facility] Address [address] [place] [address]. [place] [address] [place] [address] Care Team Providers Care Precision Optics Technician Name Role Phone Unavailable Primary Care Provider Unavailabl e Encounter Details Date Type Department Care Team (Late st Contact Info) Description 03/11/2013 [facility] [address] [place] [address] Elias Faulkner MD [address] [place] [address] Social History Tobacco Use Types Packs/Day Years [...]
--- OUTSIDE RECORDS SUMMARY | 2024-08-20 13:52 | XMS_ITS | Encounter Summary ---
Author Organization [facility] Address [address] [place] [address]. [place] [address] [place] [address] Care Team Providers Care Sap Data Analyst Name Role Phone Unavailable Primary Care Provider Unavailabl e Encounter Details Date Type Department Care Team (Late st Contact Info) Description 11/14/2005 Abstract [facility] [place] [address] Brody Evans MD [address] [place] [phone] Social History Tobacco Use Types Packs/Day Years [...]
--- OUTSIDE RECORDS SUMMARY | 2024-08-20 13:52 | XMS_ITS | Encounter Summary ---
Author Organization [facility] Address [address] [place] [address]. [place] [address] [place] [address] Care Team Providers Care Dental Claims Processor Name Role Phone Unavailable Primary Care Provider Unavailabl e Encounter Details Date Type Department Care Team (Late st Contact Info) Description 11/09/2010 [facility] [address] [place] [address] , Nancy Mcfadden MD Social History Tobacco [...]
--- OUTSIDE RECORDS SUMMARY | 2024-08-20 13:52 | XMS_ITS | Encounter Summary ---
Author Organization [facility] Address [address] [place] [address]. [place] [address] [place] [address] Care Team Providers Care Research & Analytics Manager Name Role Phone Channing Panchal MD Primary Care Provider [phone] Mark Carmichael DO Primary Care Provider [phone] Reason for Visit * Reason Comments ECG (SCAN) Encounter Details Date Type Department Care Team (Late st Contact Info) Description 07/20/2022 Scan [facility] Information [facility] [address] [place] [address] Scanned, Doc Hospital ECG (SCAN) Social History Tobacco Use Types Packs/Day [...] was confirmed or suspected to have Coronavirus/COVID-19? Unable to assess 07/28/2022 10: 30 AM CRYSTAL EVALUATOR documented as of this encounter Functional Status documented as of this encounter Mental Status * Question Answer Entry Date Author Status Because of a physical, mental, or emotional condition, do you have serious difficulty concentrating, remembering, or making decisions? No 07/25/2022 11:00 PM CRYSTAL EVALUATOR Nan Vega RN Active documented in this encounter Plan of Treatment Not on file documented as of this encounter Goals Goal Patient Goal Type Associated Problems Recent Progress Patient-Stated? Author Family - family caregiver with be involved in care transitions and discharge planning Lifestyle No Angela Dawkins, DISTRIBUTION COORDINATOR documented as of this encounter Procedures Procedure Name Priority Date/Time Associated Diagnosis Comments ECG GENERIC (SCAN ORDER) Routine 07/20/2022 12:00 AM CRYSTAL EVALUATOR documented in this encounter Results * ECG (07/20/2022 12:00 AM CRYSTAL EVALUATOR) 07/20/2022 [facility] Scanned SCANNING Final Resul t [facility] documented in this encounter Visit Diagnoses Not on filedocumented in this encounter Additional Health Concerns Infection Onset Date Last Indicated Resolved Time COVID-19 Rule Out 07/25/2022 07/25/2022 08/01/2022 12:32 AM CRYSTAL EVALUATOR documented as of this encounter Care Teams Research & Analytics Manager Relationship Specialty Start Date End Date Channing Panchal MD [address] [place] [phone] PCP - General INTERNAL MEDICINE 08/17/21 07/21/22 Mark Carmichael DO [address] [place] [address] PCP - General FAMILY PRACTICE 07/22/22 documented as of this encounter
--- OUTSIDE RECORDS SUMMARY | 2024-08-20 13:52 | XMS_ITS | Encounter Summary ---
Author Organization [facility] Address [facility] [place] [address] [place] [address] Care Team Providers Care Blow Torch Burner Name Role Phone Joe Tam Primary Care Provider [phone] Reason for Visit * Auth/Cert (Routine) Specialty Diagnoses / Procedures Referred By Contac t Referred To Contact Diagnoses Respiratory failure (CMS/HCC [facility]/HCC) Acute respiratory failure Respiratory failure ([facility]) Procedures NONE De Villasenor MD [address] [place] [address] Phone: tel: fax: Referral ID Status Reason Start Date Expiration Date Visits Re quested Visits Authorized [id number] 1 1 Encounter Details Date Type Department Care Team (Late st Contact Info) Description 07/30/2022 3:10 PM DIRECTOR AIRPORT - 07/30/2022 4:40 PM DIRECTOR AIRPORT Surgery [facility] OR [address] [place] [address] Patti Pineda MD [address] [place] [address] DIAGNOSTIC BRONCHOSCOPY, BAL OF RIGHT LOWER LOBE Surgery Details Date/Time Status Location OR Service Patient Class Case Class Case Type Trauma Case? 07/30/2022 3:10 PM Posted S[facility] Virtual Procedure [facility] PACU 21 Pulmonary Inpatient E - Elective No Panel 1 Procedure LRB Anes Op Region Wound Class Comments DIAGNOSTIC BRONCHOSCOPY, BAL OF RIGHT LOWER LOBE Bilateral General Throat Clean Contaminated Surgeon Surgeon Role Service Panel Anna Us MD Resident - Assisting Pulmonary 1 Patti Pineda MD Primary Pulmonary 1 Case Notes OC #1 07/30/22 MOVED FROM 07/[address] [facility] 07/26 @1548 SD documented in this encounter Social History Tobacco [...] Coronavirus/COVID-19? No / Unsure 07/30/2022 6:53 AM DIRECTOR AIRPORT documented as of this encounter Last Filed Vital Signs Vital Sign Reading Time Taken Comments Blood Pressure 113/93 07/30/2022 4:30 PM DIRECTOR AIRPORT Pulse 58 07/30/2022 4:30 PM DIRECTOR AIRPORT Temperature 36.9 ??C (98.4 ??F) 07/30/2022 3:50 PM CS T Respiratory Rate 18 07/30/2022 4:30 PM DIRECTOR AIRPORT Oxygen Saturation 92% 07/30/2022 4:30 PM DIRECTOR AIRPORT Inhaled Oxygen Concentration - - Weight 67.5 kg (148 lb 12.8 oz) 07/28/2022 3:26 AM DIRECTOR AIRPORT Height 165.1 cm (5' 5 ) 07/25/2022 1:30 PM DIRECTOR AIRPORT Body Mass Index 24.76 07/25/2022 1:30 PM DIRECTOR AIRPORT documented in this encounter Functional Status * Question Answer Date of Assessment Author Status Do you have serious difficulty walking or climbing stairs? No 07/25/2022 11:00 PM DIRECTOR AIRPORT Noelle Vega RN Active * Question Answer Date of Assessment Author Status Do you have difficulty dressing or bathing? No 07/25/2022 11:00 PM DIRECTOR AIRPORT Nan Vega RN Active Because of a physical, mental, or emotional condition, do you have difficulty doing errands alone such as visiting a doctor's office or shopping? No 07/25/2022 11:00 PM Noelle Bueno RN Active * RETIRED Are you deaf or do you have serious difficulty hearing Answer Date of Assessment Author Status No 07/25/2022 11:00 PM DIRECTOR AIRPORT Acti ve * RETIRED Are you blind or do you have serious difficulty seeing, even when wearing glasses? Answer Date of Assessment Author Status No 07/25/2022 11:00 PM DIRECTOR AIRPORT Acti ve * Do you have serious difficulty walking or climbing stairs? Answer Date of Assessment Author Status No 07/25/2022 11:00 PM Ktaie Bueno ma RN Active * Do you [...] Physician Discharge Summary Patient ID: Ray Phillips [id number] 67-year-old 1955 Primary care physician:JOE TAM DO [...] please fax to [facility] at [phone] - Please follow-up with [facility] in 3 weeks, please call [phone] to schedule a follow-up apt - Risks of indwelling line/retirement IV antibiotics discussed with patient (including C. [...] in stable condition Thank you for choosing [facility] HOSPITALIST SERVICE -PLEASE CALL [phone] EXT [phone] IF QTS Code Status: Prior Procedure: Procedures [...] decubitus position on the CT table and [place] protocol was observed to verify correct patient, [...] CT. The tract was dilated to 12 Malawian. During dilation, there was temporary retraction of the wire resulting in slight kinking and difficulty advancing the tube. Access was again regained using theone-step sheath needle, followed again by CT confirmation of position, wire placement, and tract dilation. A 12-Malawian pigtail drainage catheter with the locking stitch [...] Date: 07/28/2022 Echocardiography Report Pat.Name: RAY PHILLIPS.ID: [id number] .Date: 07/27/2022 : [id number] NON-STAFF PROVIDER EWDPROV EWDPROV Exam Time: 12:44:00 PM Study Type:ECHO WITH CARDIAC DOPPLER COMP Height: 165 cm Weight: 68 kg BSA: 1.75 m2 Age: 9 1955,67Y Sex: M BP: 138/68 HR: 70 bpm Sonogrphr: Avery Marie [facility] Pat. Stat.:Inpatient Room: 742 CPT - 4: 49004 Reason for Study:Pericardial effusion Procedures: 2D, M-mode, [...] atrial pressure. No significant valvular heart disease. +++++++++ +++++++++++++++++++++++++++ FINDINGS: ++++++++++++++++++++++++++++++++++++ LV: The left ventricularsize is normal. The left ventricular systolic function [...] 62bpm. PV: The pulmonic valve is normal Thereis trace pulmonic regurgitation TV: The tricuspid valve appears structurally normal. There is tracetricuspid regurgitation. ++++++++++++++++++++++++++++++++++++ MEASUREMENTS: ++++++++++++++++++++++++++++++++++++ DOPPLER LVOT LVOTpkPG [...] Mass 2D Value 229 g LV Mass Lbdvv8Q Value 131g/m2 Right Ventricle Right Ventricle 14.3 cm/s 2D [...] right lung base similar to prior study. Developing tiny right effusion since the prior exam. No pneumothorax. Heart size normal. Atherosclerotic aorta. Pulmonary vasculature stable. ======== [...] Procedure: Midline venous catheter placement. Grafts/Implants: 4 Malawian midlinevenous catheter Interventional Radiologist: Óscar Food Stand Manager: ANSON Keating Anesthesia: Local - 1% Lidocaine [...] centrally. Peel-away sheath was placed. A 4 Malawian single lumen midline, 20 cm.This was advanced [...] Disposition: HOME WITH HOME HEALTH @DOCUMENTATION OF ZGNZ-RS-[id number] ENCOUNTER FOR HOME HEALTH I attest that a Mthv-rh-Wjyq encounter with Ray Phillips was made on [...] are for medical reasons,or for attendance at gnosticist events; absences from home for nonmedical reasons [...] WHEN ANTIBIOTICS COMPLETED Patti Pineda MD [address] [facility] [address] Follow up in 1 week(s) Joe Tam DO [address] [facility] [address] Follow up in 1 week(s) Zoila Farias MD [address] [facility] [address] Follow up in 2 week(s) Ross Blackburn MD [address] [facility] [address] Follow up in 1 month(s) Follow up labs neededWhile on IV antibiotics, obtain weekly labs - CBC and CMP, please fax to [facility] at [phone] Follow up instructions ABOVE Discharge time spent: 35 minutes Signed: LANRE WINTER MD 08/08/2022 2:16 PM CTOR AIRPORT documented in this encounter Discharge Instructions * Discharge Instructions* Raquel Wetzel MD - 08/07/2022 7:16 AM DIRECTOR AIRPORT ACTIVITY Your smaller incision will take about [...] the Cardiothoracic Surgery at any time at [phone] CTOR AIRPORT documented in this encounter Medications at Time [...] D/C plans IDBR done with Dr Winter [facility] to discuss POC/D/C plans. See notes below. 08/08/22924 Interdisciplinary Group Conference Team Members Present Physician;Case/Care management Barriers to Discharge Barriers Other (Comment) Other (Comment)follow up D/C to home with [facility] and [facility] for IV supplies. CTOR AIRPORT * Lanre Winter MD - 08/07/2022 2:04 [...] -- RBC 2.17* 2.32* -- Recent Labs 08/05/2221008/06/22 0427 ALT 8* 8* AST 8* 9* CO2 27.9 27.3 CL 104 107 GLU 114* 87 K 3.4* 3.8 NA 136 140 BUN 11 8 No intake or output data in the 24 hours ending 08/07/22 1404 Microbiology Results (last 14 days) Procedure Component Value Units Date/Time CULTURE, ANAEROBIC [[id number]] Collected: 08/02/22837 Order Status: Completed Lab Status: Final result Updated: 08/07/22 0910 Specimen: TISSUE from OTHER (type in comments) Spec. Description TISSUE: RT DECORTICATION TISU Special Requests: NO SPECIAL REQUEST Culture Result: NO ANAEROBES ISOLATED CULTURE TB/AFB OTHER (TYPE IN COMMENTS) [[id number]] Collected: 08/02/22837 Order Status: Sent Lab Status: In process Updated: 08/02/22 1009 Specimen: TISSUE from OTHER (type in comments) CULTURE, FUNGUS [[id number]] Collected: 08/02/22837 Order Status: Sent Lab Status: In process Updated: 08/02/22 1010 Specimen: TISSUE from OTHER (type in comments) CULTURE, TISSUE W/GRAM STAIN [[id number]] Collected: 08/02/22837 Order Status: Completed Lab Status: Final result Updated: 08/07/22 1136 Specimen: TISSUE from OTHER (type in comments) Spec. Description TISSUE: RT DECORTICATION TISU Special Requests: NO SPECIAL REQUEST Gram Stain Result -- MODERATE NEUTROPHILS SEEN Gram Stain Result NO ORGANISMS SEEN Culture Result: NO GROWTH 5 DAYS SMEAR,FLUOR STAIN,ACID FAST [[id number]] Collected: 08/02/22 0838 Order Status: Completed Lab Status: Final result Updated: 08/05/221944 ACID FAST SMEAR RESULT SEE NOTE 08/05/2022 07:45 PM Comment: Test Result Flag Unit RefValue Acid Fast Smear For Mycobacterium SOURCE: LUNG, RIGHT, RT DECORTICATION TIS ACID FAST SMEAR FOR MYCOBACTERIUM FINAL Negative. Test Performed by: [place] [address] Test Design Engineer: Brent Alcaraz M.D. Ph.D.; CLIA# [id number] CULTURE, FUNGUS [[id number]] Order Status: No result Lab Status: No result Specimen: BRONCHOALVEO LAV, RT LWR CULTURE TB/AFB OTHER (TYPE IN COMMENTS) [[id number]] Order Status: No result Lab Status: No result Specimen: BRONCHOALVEO LAV, RT LWR SMEAR,FLUOR STAIN,ACID FAST [[id number]] Order Status: No result Lab Status: No result Specimen: BRONCHOALVEO LAV, RT LWR CULTURE VIRAL RESPIRATORY RAPID [[id number]] Order Status: No result Lab Status: No result Specimen: BRONCHOALVEO LAV, RT LWR CULTURE RESPIRATORY W/ GRAM STAIN [[id number]] Order Status: No result Lab Status: No result Specimen: BRONCHIAL WASHING CULTURE, FUNGUS [[id number]] Order Status: No result Lab Status: No result Specimen: BRONCHIAL WASHING CULTURE TB/AFB OTHER (TYPE IN COMMENTS) [[id number]] Order Status: No result Lab Status: No result Specimen: BRONCHIAL WASHING SMEAR,FLUOR STAIN,ACID FAST [[id number]] Order Status: No result Lab Status: No result Specimen: BRONCHIAL WASHING CULTURE VIRAL RESPIRATORY RAPID [[id number]] Order Status: No result Lab Status: No result Specimen: BRONCHIAL WASHING CULTURE, QUANTITATIVE W/ GRAM STAIN [[id number]] Order Status: No result Lab Status: No result Specimen: BRONCHOALVEO LAV, RT LWR CULTURE, FUNGUS [[id number]] Collected: 11/28/22 1530 Order Status: No result Lab Status: In process Updated: 07/30/22 1701 CULTURE RESPIRATORY W/ GRAM STAIN [[id number]] Collected: 07/30/221529 Order Status: Completed Lab Status: Final result Updated: 08/03/22 1228 Specimen: SITE Spec. Description SITE: BRONCH WASH Special Requests: NO SPECIAL REQUEST Gram Stain Result -- MANY NEUTROPHILS SEEN Gram Stain Result NO ORGANISMS SEEN Culture Result: -- FEW TETE ALBICANS SMEAR,FLUOR STAIN,ACID FAST [[id number]] Collected: 07/30/221529 Order Status: Completed Lab Status: Final result Updated: 08/01/22 2318 ACID FAST SMEAR RESULT SEE NOTE 08/01/2022 11:18 PM Comment: Test Result Flag Unit RefValue Acid Fast Smear For Mycobacterium SOURCE: BRONCHIAL WASHING, BWASH/BAL MIX ACID FAST SMEAR FOR MYCOBACTERIUM FINAL Negative. Test Performed by: [place] [address] Test Design Engineer: Brent Alcaraz M.D. Ph.D.; CLIA# [id number] CULTURE TB/AFB OTHER [[id number]] Collected: 07/30/221529 Order Status: No result Lab Status: In process Updated: 07/30/22 170 CULTURE, QUANTITATIVE W/ GRAM STAIN [[id number]] Collected: 07/30/221529 Order Status: Completed Lab Status: Final result Updated: 08/02/22 1457 Specimen: SITE Spec. Description SITE: BAL RLL Special Requests: NO SPECIAL REQUEST Gram Stain Result <10 NEUTROPHILS PER LPF Gram Stain Result <10 EPITHELIAL CELLS PER LPF Gram Stain Result -- RARE GRAM NEGATIVE RODS Culture Result: -- 500 CFU/ML YEAST , ID UPON REQUEST CULTURE, FUNGUS [[id number]] Collected: 07/30/221529 Order Status: Canceled Lab Status: No result SMEAR,FLUOR STAIN,ACID FAST [[id number]] Collected: 07/30/221529 Order Status: Canceled Lab Status: No result CULTURE TB/AFB OTHER [[id number]] Collected: 07/30/221529 Order Status: Canceled Lab Status: No result CULTURE CMV [[id number]] Collected: 07/30/221529 Order Status: Completed Lab Status: Final result Updated: 08/06/22 1738 CYTOMEGALOVIRUS CULTURE REPORT Comment: CMV Rapid Culture SOURCE : BAL RESULT Not Isolated Reference Range: Not Isolated Test Performed by [facility], [address] [place], [place] Adrián Balderas M.D., Ph.D., Director of Laboratories , CLIA [id number] SPECIMEN SOURCE BAL/BWASH MIX IN VTM 1 TO 1 RATIO, FRZ NEG 70 CULTURE HERPES [[id number]] Collected: 07/30/221529 Order Status: Completed Lab Status: Final result Updated: 08/03/22 1542 HERPES SIMPLEX VIRUS CULTURE REPORT Comment: Herpes Simplex Virus Culture SOURCE : BAL/BWASH MIX IN RESULT Not Isolated Reference Range: Not Isolated Test Performed by [facility], [address] [place], [place] Adrián Balderas M.D., Ph.D., Director of Laboratories , CLIA [id number] Specimen Type BAL/BWASH MIX IN VTM 1 TO 1 RATIO, FRZ NEG 70 CULTURE VIRAL RESPIRATORY RAPID [[id number]] Collected: 07/30/221529 Order Status: Completed Lab Status: Final result Updated: 08/05/22 1522 VIRAL RESP RAPID CULTURE W/RFX REPORT Comment: Respiratory Culture Screen SOURCE : BWASH/BAL MIX IN RESULT Negative for Influenza virus, types A and B, Parainfluenza viruses 1,2 # 3, Adenovirus, and Respiratory Syncytial virus. Reference range: Negative Rapid Respiratory Viruses Not indicated Test Performed by [facility], [address] [place], [place] Adrián Balderas M.D., Ph.D., Director of Laboratories , CLIA [id number] Specimen Type BWASH/BAL MIX IN VTM 1 TO 1 RATIO, FRZ NEG 70 CULTURE RESPIRATORY W/ GRAM STAIN [[id number]] Collected: 07/28/221424 Order Status: Completed Lab Status: [...] -- MODERATE PRESUMPTIVE TETE ALBICANS CULTURE, FUNGUS [[id number]] Collected: 07/28/221424 Order Status: Sent Lab Status: In process Updated: 07/31/22 133 Specimen: SPUTUM, EXPECTORATED CULTURE TB/AFB OTHER (TYPE IN COMMENTS) [[id number]] Collected: 07/28/221424 Order Status: Canceled Lab Status: No result Specimen: SPUTUM, EXPECTORATED SMEAR,FLUOR STAIN,ACID FAST [[id number]] Collected: 07/28/221424 Order Status: No result Lab Status: In process Updated: 07/28/22 161 HISTOPLASMA ANTIGEN [[id number]] Collected: 07/28/221423 Order Status: Sent Lab Status: No result Specimen: BLOOD HISTOPLASMA ANTIGEN [[id number]] Collected: 07/28/221423 Order Status: Canceled Lab Status: No result Specimen: BLOOD GLUCOSE, BODY FLUID [[id number]] Order Status: Canceled Lab Status: No result Specimen: PLEURAL FLUID PH BODY FLUID [[id number]] Order Status: Canceled Lab Status: No result Specimen: PLEURAL FLUID CULTURE, BODY FLUID W/ GRAM STAIN [[id number]] Order Status: Canceled Lab Status: No result Specimen: PLEURAL FLUID CULTURE, ANAEROBIC [[id number]] Order Status: Canceled Lab Status: No result Specimen: PLEURAL FLUID CULTURE, FUNGUS [[id number]] Order Status: Canceled Lab Status: No result Specimen: PLEURAL FLUID LDH BODY FLUID [[id number]] Collected: 07/27/22 1030 Order Status: Completed Lab Status: Final result Updated: 07/27/22 152 Specimen: PLEURAL FLUID FLUID LDH >4,000 UNITS/L Comment: REFERENCE RANGE NOT ESTABLISHED FOR THIS BODY FLUID. SOURCE (FLUID) PLEURAL FLUID CELL COUNT W/ DIFF BODY FLUID [[id number]] Collected: 07/27/221029 Order Status: Completed Lab Status: Final result Updated: 07/27/22 1545 Specimen: PLEURAL FLUID SOURCE (FLUID) PLEURAL FLUID FL WBC 144.450 x10'3/uL Comment: REFERENCE RANGE NOT ESTABLISHED FL RBC 0.090 x10'6/uL Comment: REFERENCE RANGE NOT ESTABLISHED DIFFERENTIAL MANUAL DIFFERENTIAL PERFORMED ON CONCENTRATED CYTOSPIN CELLS COUNTED 100 No COUNTED SEGS (FLUID) 97 % LYMPHS (FLUID) 3 % PROTEIN TOTAL FLUID [[id number]] Collected: 07/27/221029 Order Status: Completed Lab Status: Final result Updated: 07/27/22 152 Specimen: PLEURAL FLUID PROTEIN (FLUID) 3.5 G/DL Comment: REFERENCE RANGE NOT ESTABLISHED FOR THIS BODY FLUID. SOURCE (FLUID) PLEURAL FLUID CULTURE, BODY FLUID W/ GRAM STAIN [[id number]] Collected: 07/27/221029 Order Status: Canceled Lab Status: No result Specimen: PLEURAL FLUID CULTURE, ANAEROBIC [[id number]] Collected: 07/27/221029 Order Status: Canceled Lab Status: No result Specimen: PLEURAL FLUID CULTURE, BODY FLUID W/ GRAM STAIN [[id number]] (Susceptibility) Collected: 07/27/221029 Order Status: Completed Lab [...] Sensitive TRIMETH-SULFAMETH. Resistant VANCOMYCIN Sensitive CULTURE, ANAEROBIC [[id number]] (Susceptibility) Collected: 07/27/221029 Order Status: Completed Lab Status: Final result Updated: 08/01/22 0826 Specimen: SITE Spec. Description SITE: RT PLEURAL FLUID Special Requests: NO SPECIAL REQUEST Culture Result: -- FEW MICROAEROPHILIC STREPTOCOCCUS Susceptibility Microaerophilic streptococcus ARLEN (ETEST) CEFOTAXIME 0.023 Sensitive PENICILLIN G 0.008 Sensitive BLASTOMYCES AG MVISTA (TM), EIA [[id number]] Order Status: No result Lab Status: No result Specimen: BLOOD BLASTOMYCES AG MVISTA (TM), EIA [[id number]] Order Status: No result Lab Status: No result Specimen: URINE CORONAVIRUS (COVID 19) PCR - Asymptomatic patients, may be completed at physician discretion [[id number]] Collected: 07/25/222031 Order Status: Canceled Lab Status: No result Specimen: NASOPHARYNGEAL SWAB STREP PNEUMO AG URINE [[id number]] Collected: 07/25/222030 Order Status: Completed Lab Status: [...] Type URINE VOIDED MRSA PCR nares Screening [[id number]] Collected: 07/25/222030 Order Status: Canceled Lab Status: No result Specimen: NASAL CULTURE, BACTERIA, BLOOD [[id number]] Collected: 07/25/221416 Order Status: Completed Lab Status: Final result Updated: 07/30/222144 Specimen: BLOOD Spec. Description BLOOD Special Requests: NO SPECIAL REQUEST Culture Result: NO GROWTH 5 DAYS CULTURE, BACTERIA, BLOOD [[id number]] Collected: 07/25/221415 Order Status: Completed Lab Status: [...] up LANRE WINTER MD 2:04 PM 08/07/2022 CTOR AIRPORT * Angela Dawkins RN - 08/07/2022 10:15 AM CSTSummary: D/C plans IDBR done with Dr Winter KERRIE ROSAS to discuss POC/D/C plans. See notes below. [address] Winter about making pt Gen with tele status-Pt can downgrade to Gen with Tele status. Let Aissatou Borges RN 7th floor scraper know this info. 1330 Cost of IV meds: $100.55 per week. Shirley Gaffney spoke with pt about this and pt is agreeable with cost. 1530 Pt/ and ALANNAH Adam thought he was going home today. I spoke with Marcelo Watson, meds cannot be delivered till Zulema 12 and [facility] plans to see pt Zulema. Let Dr Winter, pt/, pt's ALANNAH Adam know this info. 08/07/22 1015 Interdisciplinary Group Conference Team Members Present Case/Care management;Physician Barriers to Discharge Barriers Not Medically ready Not Medically ready follow up Continue IMC status. On IV antibiotics through 08/30/22. CM spoke with pt/ about [facility] and [facility] about D/C plans possibly for Sat08/08/22. They chose [facility] for HHS agency. Ref sent/called to Shirley at [facility] and Doc jorge to [facility] about referral. CTOR AIRPORT CTOR AIRPORT CTOR AIRPORT * Raquel Wetzel MD - 08/07/2022 7:17 [...] 2 g, Intravenous, Q24H, Flora Dale NP, Stopped at 08/06/22 1533 ??? enoxaparin (LOVENOX) [...] PRN, Tracy Yo MD, 30 mg at 08/06/226 ??? normal saline 0.9 % flush 3-10 [...] Ross Blackburn MD at 08/09/2022 8:49 AM DIRECTOR AIRPORT CTOR AIRPORT CTOR AIRPORT * Merary Langley RN - 08/07/2022 2:34 [...] Goal: Absence of venous thromboembolism Outcome: Progressing CTOR AIRPORT * Maggie Fong MD - 08/06/2022 3:24 PM CSTSummary: [facility] Progress note [facility] PROGRESS NOTE Attending Provider:Dr. Fong PCP: JOE TAM DO Reason for Consultation: Loculated pleural effusions, Pneumonia ASSESSMENT AND PLAN Ray Phillips is a 67-year-old male with medical history of chronic tobacco use who was transferred from [facility] near [place] for treatment resistant pneumonia and loculated pleural [...] please fax to [facility] at [phone] - Please follow-up with [facility] in 3 weeks, please call [phone] to schedule a follow-up apt - Risks of indwelling line/oysterman IV antibiotics discussed with patient (including C. diff) -Plan as above discussed with patient, all voiced questions/concerns addressed, voiced agreement and understanding with plan. Thank you for consulting [facility] Infectious Disease. Paulina Dale NP 08/06/22 [facility] ATTENDING I, MAGGIE FONG MD, performed an examination of the patient and discussed the management with the QUENCHING MACHINE OPERATOR. I reviewed the QUENCHING MACHINE OPERATOR's progress note and agree with the findings [...] Tracy Yo MD, 100 mg at 08/05/222051 CTOR AIRPORT CTOR AIRPORT CTOR AIRPORT * Ilana Dove RRT - 08/06/2022 2:45 [...] Charge $ Home Oxygen Evaluation Charge Yes CTOR AIRPORT * Nimisha Meyer RD - 08/06/2022 2:28 PM CST CLINICAL DIETITIAN RESCREEN Patient is a 67-year-old male admitted secondary to Respiratory failure (CMS/HCC) [J96.90]. Past Medical History: Diagnosis Date ??? [...] Start nutrition assessment NIMISHA MEYER RD, LDN CTOR AIRPORT * Lanre Winter MD - 08/06/2022 2:03 [...] 207 RBC 2.39* 2.17* 2.32* Recent Labs 08/04/2223308/05/2221008/06/22426 ALT 11* 8* 8* AST 11* 8* [...] Procedure Component Value Units Date/Time CULTURE, ANAEROBIC [[id number]] Collected: 08/02/22837 Order Status: Completed Lab Status: Preliminary result Updated: 08/03/22 1524 Specimen: TISSUE from OTHER (type in comments) Spec. Description TISSUE: RT DECORTICATION TISU Special Requests: NO SPECIAL REQUEST Culture Result: -- NO ANAEROBES ISOLATED TO DATE CULTURE TB/AFB OTHER (TYPE IN COMMENTS) [[id number]] Collected: 08/02/22837 Order Status: Sent Lab Status: In process Updated: 08/02/22 1009 Specimen: TISSUE from OTHER (type in comments) CULTURE, FUNGUS [[id number]] Collected: 08/02/22837 Order Status: Sent Lab Status: In process Updated: 08/02/22 1010 Specimen: TISSUE from OTHER (type in comments) CULTURE, TISSUE W/GRAM STAIN [[id number]] Collected: 08/02/22837 Order Status: Completed Lab Status: Preliminary result Updated: 08/06/22 1203 Specimen: TISSUE from OTHER (type in comments) Spec. Description TISSUE: RT DECORTICATION TISU Special Requests: NO SPECIAL REQUEST Gram Stain Result -- MODERATE NEUTROPHILS SEEN Gram Stain Result NO ORGANISMS SEEN Culture Result: NO GROWTH 4 DAYS SMEAR,FLUOR STAIN,ACID FAST [[id number]] Collected: 08/02/22837 Order Status: Completed Lab Status: Final result Updated: 08/05/221944 ACID FAST SMEAR RESULT SEE NOTE 08/05/2022 07:45 PM Comment: Test Result Flag Unit RefValue Acid Fast Smear For Mycobacterium SOURCE: LUNG, RIGHT, RT DECORTICATION TIS ACID FAST SMEAR FOR MYCOBACTERIUM FINAL Negative. Test Performed by: [facility] [address] [address] Test Design Engineer: Brent Alcaraz M.D. Ph.D.; CLIA# [id number] CULTURE, FUNGUS [[id number]] Order Status: No result Lab Status: No result Specimen: BRONCHOALVEO LAV, RT LWR CULTURE TB/AFB OTHER (TYPE IN COMMENTS) [[id number]] Order Status: No result Lab Status: No result Specimen: BRONCHOALVEO LAV, RT LWR SMEAR,FLUOR STAIN,ACID FAST [[id number]] Order Status: No result Lab Status: No result Specimen: BRONCHOALVEO LAV, RT LWR CULTURE VIRAL RESPIRATORY RAPID [[id number]] Order Status: No result Lab Status: No result Specimen: BRONCHOALVEO LAV, RT LWR CULTURE RESPIRATORY W/ GRAM STAIN [[id number]] Order Status: No result Lab Status: No result Specimen: BRONCHIAL WASHING CULTURE, FUNGUS [[id number]] Order Status: No result Lab Status: No result Specimen: BRONCHIAL WASHING CULTURE TB/AFB OTHER (TYPE IN COMMENTS) [[id number]] Order Status: No result Lab Status: No result Specimen: BRONCHIAL WASHING SMEAR,FLUOR STAIN,ACID FAST [[id number]] Order Status: No result Lab Status: No result Specimen: BRONCHIAL WASHING CULTURE VIRAL RESPIRATORY RAPID [[id number]] Order Status: No result Lab Status: No result Specimen: BRONCHIAL WASHING CULTURE, QUANTITATIVE W/ GRAM STAIN [[id number]] Order Status: No result Lab Status: No result Specimen: BRONCHOALVEO LAV, RT LWR CULTURE, FUNGUS [[id number]] Collected: 07/30/221529 Order Status: No result Lab Status: In process Updated: 07/30/22 1701 CULTURE RESPIRATORY W/ GRAM STAIN [[id number]] Collected: 07/30/22 153 Order Status: Completed Lab Status: Final result Updated: 08/03/22 1228 Specimen: SITE Spec. Description SITE: BRONCH WASH Special Requests: NO SPECIAL REQUEST Gram Stain Result -- MANY NEUTROPHILS SEEN Gram Stain Result NO ORGANISMS SEEN Culture Result: -- FEW TETE ALBICANS SMEAR,FLUOR STAIN,ACID FAST [[id number]] Collected: 07/30/22 1530 Order Status: Completed Lab Status: Final result Updated: 08/01/22 2318 ACID FAST SMEAR RESULT SEE NOTE 08/01/2022 11:18 PM Comment: Test Result Flag Unit RefValue Acid Fast Smear For Mycobacterium SOURCE: BRONCHIAL WASHING, BWASH/BAL MIX ACID FAST SMEAR FOR MYCOBACTERIUM FINAL Negative. Test Performed by: [address] [address] Test Design Engineer: Brent Alcaraz M.D. Ph.D.; CLIA# [id number] CULTURE TB/AFB OTHER [[id number]] Collected: 07/30/221529 Order Status: No result Lab Status: In process Updated: 07/30/22 1704 CULTURE, QUANTITATIVE W/ GRAM STAIN [[id number]] Collected: 07/30/221529 Order Status: Completed Lab Status: Final result Updated: 08/02/22 1457 Specimen: SITE Spec. Description SITE: BAL RLL Special Requests: NO SPECIAL REQUEST Gram Stain Result <10 NEUTROPHILS PER LPF Gram Stain Result <10 EPITHELIAL CELLS PER LPF Gram Stain Result -- RARE GRAM NEGATIVE RODS Culture Result: -- 500 CFU/ML YEAST , ID UPON REQUEST CULTURE, FUNGUS [[id number]] Collected: 07/30/221529 Order Status: Canceled Lab Status: No result SMEAR,FLUOR STAIN,ACID FAST [[id number]] Collected: 07/30/221529 Order Status: Canceled Lab Status: No result CULTURE TB/AFB OTHER [[id number]] Collected: 07/30/221529 Order Status: Canceled Lab Status: No result CULTURE CMV [[id number]] Collected: 07/30/221529 Order Status: No result Lab Status: In process Updated: 07/31/22 1431 CULTURE HERPES [[id number]] Collected: 07/30/221529 Order Status: Completed Lab Status: Final result Updated: 08/03/22 1542 HERPES SIMPLEX VIRUS CULTURE REPORT Comment: Herpes Simplex Virus Culture SOURCE : BAL/BWASH MIX IN RESULT Not Isolated Reference Range: Not Isolated Test Performed by Javier Ben[facility]tez [facility] [place], [address] [place], [place] Adrián Balderas M.D., Ph.D., Director of Laboratories , CLIA [id number] Specimen Type BAL/BWASH MIX IN VTM 1 TO 1 RATIO, FRZ NEG 70 CULTURE VIRAL RESPIRATORY RAPID [[id number]] Collected: 07/30/22 1530 Order Status: Completed Lab Status: Final result Updated: 08/05/22 1522 VIRAL RESP RAPID CULTURE W/RFX REPORT Comment: Respiratory Culture Screen SOURCE : BWASH/BAL MIX IN RESULT Negative for Influenza virus, types A and B, Parainfluenza viruses 1,2 # 3, Adenovirus, and Respiratory Syncytial virus. Reference range: Negative Rapid Respiratory Viruses Not indicated Test Performed by [facility], [facility] [place], [address] [place] [address] Adrián Balderas M.D., Ph.D., Director of Laboratories , CLIA [id number] Specimen Type BWASH/BAL MIX IN VTM 1 TO 1 RATIO, FRZ NEG 70 CULTURE RESPIRATORY W/ GRAM STAIN [[id number]] Collected: 07/28/221424 Order Status: Completed Lab Status: [...] -- MODERATE PRESUMPTIVE TETE ALBICANS CULTURE, FUNGUS [[id number]] Collected: 07/28/221424 Order Status: Sent Lab Status: In process Updated: 07/31/22 1336 Specimen: SPUTUM, EXPECTORATED CULTURE TB/AFB OTHER (TYPE IN COMMENTS) [[id number]] Collected: 07/28/221424 Order Status: Canceled Lab Status: No result Specimen: SPUTUM, EXPECTORATED SMEAR,FLUOR STAIN,ACID FAST [[id number]] Collected: 07/28/221424 Order Status: No result Lab Status: In process Updated: 07/28/22 1612 HISTOPLASMA ANTIGEN [[id number]] Collected: 07/28/22 142 Order Status: Sent Lab Status: No result Specimen: BLOOD HISTOPLASMA ANTIGEN [[id number]] Collected: 07/28/221423 Order Status: Canceled Lab Status: No result Specimen: BLOOD GLUCOSE, BODY FLUID [[id number]] Order Status: Canceled Lab Status: No result Specimen: PLEURAL FLUID PH BODY FLUID [[id number]] Order Status: Canceled Lab Status: No result Specimen: PLEURAL FLUID CULTURE, BODY FLUID W/ GRAM STAIN [[id number]] Order Status: Canceled Lab Status: No result Specimen: PLEURAL FLUID CULTURE, ANAEROBIC [[id number]] Order Status: Canceled Lab Status: No result Specimen: PLEURAL FLUID CULTURE, FUNGUS [[id number]] Order Status: Canceled Lab Status: No result Specimen: PLEURAL FLUID LDH BODY FLUID [[id number]] Collected: 07/27/221029 Order Status: Completed Lab Status: Final result Updated: 07/27/22 152 Specimen: PLEURAL FLUID FLUID LDH >4,000 UNITS/L Comment: REFERENCE RANGE NOT ESTABLISHED FOR THIS BODY FLUID. SOURCE (FLUID) PLEURAL FLUID CELL COUNT W/ DIFF BODY FLUID [[id number]] Collected: 07/27/221029 Order Status: Completed Lab Status: Final result Updated: 07/27/22 1545 Specimen: PLEURAL FLUID SOURCE (FLUID) PLEURAL FLUID FL WBC 144.450 x10'3/uL Comment: REFERENCE RANGE NOT ESTABLISHED FL RBC 0.090 x10'6/uL Comment: REFERENCE RANGE NOT ESTABLISHED DIFFERENTIAL MANUAL DIFFERENTIAL PERFORMED ON CONCENTRATED CYTOSPIN CELLS COUNTED 100 No COUNTED SEGS (FLUID) 97 % LYMPHS (FLUID) 3 % PROTEIN TOTAL FLUID [[id number]] Collected: 07/27/22 1030 Order Status: Completed Lab Status: Final result Updated: 07/27/22 152 Specimen: PLEURAL FLUID PROTEIN (FLUID) 3.5 G/DL Comment: REFERENCE RANGE NOT ESTABLISHED FOR THIS BODY FLUID. SOURCE (FLUID) PLEURAL FLUID CULTURE, BODY FLUID W/ GRAM STAIN [[id number]] Collected: 07/27/22 103 Order Status: Canceled Lab Status: No result Specimen: PLEURAL FLUID CULTURE, ANAEROBIC [[id number]] Collected: 11/25/22 1030 Order Status: Canceled Lab Status: No result Specimen: PLEURAL FLUID CULTURE, BODY FLUID W/ GRAM STAIN [[id number]] (Susceptibility) Collected: 07/27/22 103 Order Status: Completed [...] Sensitive TRIMETH-SULFAMETH. Resistant VANCOMYCIN Sensitive CULTURE, ANAEROBIC [[id number]] (Susceptibility) Collected: 07/27/22 1030 Order Status: Completed Lab Status: Final result Updated: 08/01/22 08 Specimen: SITE Spec. Description SITE: RT PLEURAL FLUID Special Requests: NO SPECIAL REQUEST Culture Result: -- FEW MICROAEROPHILIC STREPTOCOCCUS Susceptibility Microaerophilic streptococcus ARLEN (ETEST) CEFOTAXIME 0.023 Sensitive PENICILLIN G 0.008 Sensitive BLASTOMYCES AG MVISTA (TM), EIA [[id number]] Order Status: No result Lab Status: No result Specimen: BLOOD BLASTOMYCES AG MVISTA (TM), EIA [[id number]] Order Status: No result Lab Status: No result Specimen: URINE CORONAVIRUS (COVID 19) PCR - Asymptomatic patients, may be completed at physician discretion [[id number]] Collected: 07/25/222031 Order Status: Canceled Lab Status: No result Specimen: NASOPHARYNGEAL SWAB STREP PNEUMO AG URINE [[id number]] Collected: 07/25/222030 Order Status: Completed Lab Status: [...] Type URINE VOIDED MRSA PCR nares Screening [[id number]] Collected: 07/25/222030 Order Status: Canceled Lab Status: No result Specimen: NASAL CULTURE, BACTERIA, BLOOD [[id number]] Collected: 07/25/22 1417 Order Status: Completed Lab Status: Final result Updated: 07/30/22 214 Specimen: BLOOD Spec. Description BLOOD Special Requests: NO SPECIAL REQUEST Culture Result: NO GROWTH 5 DAYS CULTURE, BACTERIA, BLOOD [[id number]] Collected: 07/25/22 1416 Order Status: Completed Lab [...] with the following history as recorded in [facility]: Problem List Items Addressed This Visit [...] ID LANRE WINTER MD 2:03 PM 08/06/2022 CTOR AIRPORT * Adali Henry, MAJOR ASSEMBLY INSPECTOR - 08/06/2022 11:37 AM CST [facility]??PROGRESS??NOTE [...] - Can follow with Dr. Pineda in [facility] after discharge ([phone]). Dr. Pineda will be in [place] 08/08 and 08/22. Patient will call clinic and see which days have an opening. - ID following for antibiotic management. ?? Thank you for the consult. We will sign off. Call back with questions or concerns. Adali Henry, MAJOR ASSEMBLY INSPECTOR 08/06/2022 SUBJECTIVE Patient doing well. Denies shortness of breath, cough, wheeze, fevers chills this morning. He is on2L oxygen. States he was told CTS plans to remove chest tube today. Review of Systems All other systems reviewed and are negative. OBJECTIVE Vitals: Filed Vitals: 08/05/22 2005 08/06/22 0020 08/06/22 0420 08/06/22 0827 BP: 121/89 [...] Patti Pineda MD at 08/06/2022 6:25 PM DIRECTOR AIRPORT CTOR AIRPORT CTOR AIRPORT CTOR AIRPORT Associated attestation - Patti Pineda MD - 08/06/2022 6:25 PM DIRECTOR AIRPORT Seen by FLORAL MANAGER Has COPD, 50-pk year history smoking who [...] assistance. Maria Antonia Quiñones PharmD Phone number: [phone] 08/06/2022 10:45 AM CTOR AIRPORT * Suzi Irby RN - 08/06/2022 10:24 AM CSTSummary: IDR 08/06/22 1003 Interdisciplinary Group Information Next Conference Date 08/07/22 Interdisciplinary Group Conference Team Members Present Physician;Case/Care management;Nursing (Dr. [facility]) Barriers to Discharge Barriers Not Medically ready Not Medically ready follow up planned d/c chest tube, waiting on ID final recs, home O2 eval, keep IMC CTOR AIRPORT * Ross Blackburn MD - 08/06/2022 9:40 AM CST In bathroom cleaning up. No leak seen. Small output. Maybe a small effusion. Plan to remove chest tube. CTOR AIRPORT * Anisa B Drainer, PRESS SHOP SUPERVISOR - 08/06/2022 8:44 AM CST OT Treatment Discharge Recommendation: home with assistance Activity Recommendation for sergeant of corrections: Per nursing discretion, OT signing off. 08/06/22822 Therapy Visit OT Received On 08/06/22 Reason for admission Update: Pt had VATS with R decorication on 08/02 with R chest tube placement (CT to suction). Discussed with Ana MOYA who okayed commercial insurance underwriter proceed with POC. Pt is a 67 [...] Per eval, pt lives with in a [facility] with no PRANAY. Pt has a walk in shower with shower chair, and gbs. Pt has a tall toilet with sink closeby. Pt has a 2ww, and cane but was notusing at home. 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 Pt [...] Name: Ray Phillips Primary Language of learner: Israeli Patient was educated on precautions exercises transfers ADLs balance bed mobility equipment therapy plan safety energy conservation adaptive skills. Education was completed one to one this date. Preference of learning new concepts one to one Barriers to education this date were none. Response to education this date verbalized understanding. CTOR AIRPORT * Maria Antonia Quiñones, Zachery - 08/06/2022 8:22 AM CST Vancomycin Pharmacokinetic [...] Drawn Site Organism Pertinent Sensitivity 07/25 BCX / NGTD Strep PNU Urine Negative 07/28 Sputum [...] Consult per Dr. Srinath Quiñones, PharmD Phone: [phone] 08/06/2022 8:22 AM CTOR AIRPORT * Lanre Winter MD - 08/05/2022 2:41 [...] Procedure Component Value Units Date/Time CULTURE, ANAEROBIC [[id number]] Collected: 08/02/22837 Order Status: Completed Lab Status: Preliminary result Updated: 08/03/22 1524 Specimen: TISSUE from OTHER (type in comments) Spec. Description TISSUE: RT DECORTICATION TISU Special Requests: NO SPECIAL REQUEST Culture Result: -- NO ANAEROBES ISOLATED TO DATE CULTURE TB/AFB OTHER (TYPE IN COMMENTS) [[id number]] Collected: 08/02/22837 Order Status: Sent Lab Status: In process Updated: 08/02/22 1009 Specimen: TISSUE from OTHER (type in comments) CULTURE, FUNGUS [[id number]] Collected: 08/02/22837 Order Status: Sent Lab Status: In process Updated: 08/02/22 1010 Specimen: TISSUE from OTHER (type in comments) CULTURE, TISSUE W/GRAM STAIN [[id number]] Collected: 08/02/22837 Order Status: Completed Lab Status: Preliminary result Updated: 08/05/22 1202 Specimen: TISSUE from OTHER (type in comments) Spec. Description TISSUE: RT DECORTICATION TISU Special Requests: NO SPECIAL REQUEST Gram Stain Result -- MODERATE NEUTROPHILS SEEN Gram Stain Result NO ORGANISMS SEEN Culture Result: NO GROWTH 3 DAYS SMEAR,FLUOR STAIN,ACID FAST [[id number]] Collected: 08/02/22837 Order Status: No result Lab Status: In process Updated: 08/02/22 1012 CULTURE, FUNGUS [[id number]] Order Status: No result Lab Status: No result Specimen: BRONCHOALVEO LAV, RT LWR CULTURE TB/AFB OTHER (TYPE IN COMMENTS) [[id number]] Order Status: No result Lab Status: No result Specimen: BRONCHOALVEO LAV, RT LWR SMEAR,FLUOR STAIN,ACID FAST [[id number]] Order Status: No result Lab Status: No result Specimen: BRONCHOALVEO LAV, RT LWR CULTURE VIRAL RESPIRATORY RAPID [[id number]] Order Status: No result Lab Status: No result Specimen: BRONCHOALVEO LAV, RT LWR CULTURE RESPIRATORY W/ GRAM STAIN [[id number]] Order Status: No result Lab Status: No result Specimen: BRONCHIAL WASHING CULTURE, FUNGUS [[id number]] Order Status: No result Lab Status: No result Specimen: BRONCHIAL WASHING CULTURE TB/AFB OTHER (TYPE IN COMMENTS) [[id number]] Order Status: No result Lab Status: No result Specimen: BRONCHIAL WASHING SMEAR,FLUOR STAIN,ACID FAST [[id number]] Order Status: No result Lab Status: No result Specimen: BRONCHIAL WASHING CULTURE VIRAL RESPIRATORY RAPID [[id number]] Order Status: No result Lab Status: No result Specimen: BRONCHIAL WASHING CULTURE, QUANTITATIVE W/ GRAM STAIN [[id number]] Order Status: No result Lab Status: No result Specimen: BRONCHOALVEO LAV, RT LWR CULTURE, FUNGUS [[id number]] Collected: 07/30/22 1530 Order Status: No result Lab Status: In process Updated: 07/30/22 1701 CULTURE RESPIRATORY W/ GRAM STAIN [[id number]] Collected: 11/28/22 1530 Order Status: Completed Lab Status: Final result Updated: 08/03/22 1228 Specimen: SITE Spec. Description SITE: BRONCH WASH Special Requests: NO SPECIAL REQUEST Gram Stain Result -- MANY NEUTROPHILS SEEN Gram Stain Result NO ORGANISMS SEEN Culture Result: -- FEW TETE ALBICANS SMEAR,FLUOR STAIN,ACID FAST [[id number]] Collected: 07/30/221529 Order Status: Completed Lab Status: Final result Updated: 08/01/22 2318 ACID FAST SMEAR RESULT SEE NOTE 08/01/2022 11:18 PM Comment: Test Result Flag Unit RefValue Acid Fast Smear For Mycobacterium SOURCE: BRONCHIAL WASHING, BWASH/BAL MIX ACID FAST SMEAR FOR MYCOBACTERIUM FINAL Negative. Test Performed by: [place] [address] Test Design Engineer: Brent Alcaraz M.D. Ph.D.; CLIA# [id number] CULTURE TB/AFB OTHER [[id number]] Collected: 07/30/221529 Order Status: No result Lab Status: In process Updated: 07/30/22 1704 CULTURE, QUANTITATIVE W/ GRAM STAIN [[id number]] Collected: 07/30/221529 Order Status: Completed Lab Status: Final result Updated: 08/02/22 1457 Specimen: SITE Spec. Description SITE: BAL RLL Special Requests: NO SPECIAL REQUEST Gram Stain Result <10 NEUTROPHILS PER LPF Gram Stain Result <10 EPITHELIAL CELLS PER LPF Gram Stain Result -- RARE GRAM NEGATIVE RODS Culture Result: -- 500 CFU/ML YEAST , ID UPON REQUEST CULTURE, FUNGUS [[id number]] Collected: 07/30/221529 Order Status: Canceled Lab Status: No result SMEAR,FLUOR STAIN,ACID FAST [[id number]] Collected: 07/30/221529 Order Status: Canceled Lab Status: No result CULTURE TB/AFB OTHER [[id number]] Collected: 07/30/221529 Order Status: Canceled Lab Status: No result CULTURE CMV [[id number]] Collected: 07/30/221529 Order Status: No result Lab Status: In process Updated: 07/31/22 1431 CULTURE HERPES [[id number]] Collected: 07/30/22 153 Order Status: Completed Lab Status: Final result Updated: 08/03/22 1542 HERPES SIMPLEX VIRUS CULTURE REPORT Comment: Herpes Simplex Virus Culture SOURCE : BAL/BWASH MIX IN RESULT Not Isolated Reference Range: Not Isolated Test Performed by [facility], [facility], [address] [place] [address] Adrián Balderas M.D., Ph.D., Director of Laboratories , [facility] [id number] Specimen Type BAL/BWASH MIX IN VTM 1 TO 1 RATIO, FRZ NEG 70 CULTURE VIRAL RESPIRATORY RAPID [[id number]] Collected: 07/30/221529 Order Status: No result Lab Status: In process Updated: 07/31/22 143 CULTURE RESPIRATORY W/ GRAM STAIN [[id number]] Collected: 07/28/221424 Order Status: Completed Lab Status: [...] -- MODERATE PRESUMPTIVE TETE ALBICANS CULTURE, FUNGUS [[id number]] Collected: 07/28/221424 Order Status: Sent Lab Status: In process Updated: 07/31/22 1336 Specimen: SPUTUM, EXPECTORATED CULTURE TB/AFB OTHER (TYPE IN COMMENTS) [[id number]] Collected: 07/28/221424 Order Status: Canceled Lab Status: No result Specimen: SPUTUM, EXPECTORATED SMEAR,FLUOR STAIN,ACID FAST [[id number]] Collected: 07/28/221424 Order Status: No result Lab Status: In process Updated: 07/28/22 1612 HISTOPLASMA ANTIGEN [[id number]] Collected: 07/28/221423 Order Status: Sent Lab Status: No result Specimen: BLOOD HISTOPLASMA ANTIGEN [[id number]] Collected: 07/28/22 1424 Order Status: Canceled Lab Status: No result Specimen: BLOOD GLUCOSE, BODY FLUID [[id number]] Order Status: Canceled Lab Status: No result Specimen: PLEURAL FLUID PH BODY FLUID [[id number]] Order Status: Canceled Lab Status: No result Specimen: PLEURAL FLUID CULTURE, BODY FLUID W/ GRAM STAIN [[id number]] Order Status: Canceled Lab Status: No result Specimen: PLEURAL FLUID CULTURE, ANAEROBIC [[id number]] Order Status: Canceled Lab Status: No result Specimen: PLEURAL FLUID CULTURE, FUNGUS [[id number]] Order Status: Canceled Lab Status: No result Specimen: PLEURAL FLUID LDH BODY FLUID [[id number]] Collected: 07/27/221029 Order Status: Completed Lab Status: Final result Updated: 07/27/221521 Specimen: PLEURAL FLUID FLUID LDH >4,000 UNITS/L Comment: REFERENCE RANGE NOT ESTABLISHED FOR THIS BODY FLUID. SOURCE (FLUID) PLEURAL FLUID CELL COUNT W/ DIFF BODY FLUID [[id number]] Collected: 07/27/221029 Order Status: Completed Lab Status: Final result Updated: 07/27/22 154 Specimen: PLEURAL FLUID SOURCE (FLUID) PLEURAL FLUID FL WBC 144.450 x10'3/uL Comment: REFERENCE RANGE NOT ESTABLISHED FL RBC 0.090 x10'6/uL Comment: REFERENCE RANGE NOT ESTABLISHED DIFFERENTIAL MANUAL DIFFERENTIAL PERFORMED ON CONCENTRATED CYTOSPIN CELLS COUNTED 100 No COUNTED SEGS (FLUID) 97 % LYMPHS (FLUID) 3 % PROTEIN TOTAL FLUID [[id number]] Collected: 07/27/221029 Order Status: Completed Lab Status: Final result Updated: 07/27/221521 Specimen: PLEURAL FLUID PROTEIN (FLUID) 3.5 G/DL Comment: REFERENCE RANGE NOT ESTABLISHED FOR THIS BODY FLUID. SOURCE (FLUID) PLEURAL FLUID CULTURE, BODY FLUID W/ GRAM STAIN [[id number]] Collected: 07/27/221029 Order Status: Canceled Lab Status: No result Specimen: PLEURAL FLUID CULTURE, ANAEROBIC [[id number]] Collected: 07/27/221029 Order Status: Canceled Lab Status: No result Specimen: PLEURAL FLUID CULTURE, BODY FLUID W/ GRAM STAIN [[id number]] (Susceptibility) Collected: 07/27/221029 Order Status: Completed Lab [...] Sensitive TRIMETH-SULFAMETH. Resistant VANCOMYCIN Sensitive CULTURE, ANAEROBIC [[id number]] (Susceptibility) Collected: 07/27/22 1030 Order Status: Completed Lab Status: Final result Updated: 08/01/22 08 Specimen: SITE Spec. Description SITE: RT PLEURAL FLUID Special Requests: NO SPECIAL REQUEST Culture Result: -- FEW MICROAEROPHILIC STREPTOCOCCUS Susceptibility Microaerophilic streptococcus ARLEN (ETEST) CEFOTAXIME 0.023 Sensitive PENICILLIN G 0.008 Sensitive BLASTOMYCES AG MVISTA (TM), EIA [[id number]] Order Status: No result Lab Status: No result Specimen: BLOOD BLASTOMYCES AG MVISTA (TM), EIA [[id number]] Order Status: No result Lab Status: No result Specimen: URINE CORONAVIRUS (COVID 19) PCR - Asymptomatic patients, may be completed at physician discretion [[id number]] Collected: 07/25/222031 Order Status: Sent Lab Status: No result Specimen: NASOPHARYNGEAL SWAB STREP PNEUMO AG URINE [[id number]] Collected: 07/25/222030 Order Status: Completed Lab Status: [...] Type URINE VOIDED MRSA PCR nares Screening [[id number]] Collected: 07/25/222030 Order Status: Canceled Lab Status: No result Specimen: NASAL CULTURE, BACTERIA, BLOOD [[id number]] Collected: 07/25/221416 Order Status: Completed Lab Status: Final result Updated: 07/30/222144 Specimen: BLOOD Spec. Description BLOOD Special Requests: NO SPECIAL REQUEST Culture Result: NO GROWTH 5 DAYS CULTURE, BACTERIA, BLOOD [[id number]] Collected: 07/25/22 141 Order Status: Completed Lab [...] with the following history as recorded in [facility]: Problem List Items Addressed This Visit [...] tomorrow LANRE WINTER MD 2:41 PM 08/05/2022 CTOR AIRPORT * Karla M Yash, ASSISTANT PARALEGAL - 08/05/2022 12:19 PM CST PT Treatment Discharge Recommendation: home with assistance for IADL's Activity Recommendation for sergeant of corrections: defer to nursing-PT signing off 08/05/22 0850 Therapy Visit Ordering Provider Tracy Yo MD Subjective Upon entering room 742, patient was in supine and agreeable to therapy. Reason for admission Update: Pt had VATS with R decorication on 08/02 with R chest tube placement (CT to suction). Discussed with Ana MOYA who okayed commercial insurance underwriter proceed with POC. Pt is a 67 [...] was notusing at home. 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 Pt [...] this date as patient demonstrates mod I [id number]. Wayne has met all acute PT goals [...] Name: Ray Phillips Primary Language of learner: Israeli Patient was educated on transfers balance therapy plan gait safety. Education was completed one to one verbal hands-on demonstration this date. Preference of learning new concepts one to one verbal hands-on demonstration Barriers to education this date were none. Response to education this date verbalized understanding. CTOR AIRPORT * Patel Kelsey MD - 08/05/2022 11:31 [...] discharge. Can follow with Dr. Pineda in [facility] after discharge ([phone]). - ID following for antibiotics management. ?? [...] 110/63 119/71 Pulse: 85 64 65 Resp: 14 Temp: 100.6 ??F (38.1 ??C) 98 [...] Katie Paula MD at 08/05/2022 1:52 PM DIRECTOR AIRPORT CTOR AIRPORT CTOR AIRPORT Associated attestation - Katie Paula MD - 08/05/2022 1:52 PM DIRECTOR AIRPORT [facility] Attending [...] bedtime, Tracy Yo MD, 100 mg at 08/04/22 203 ??? vancomycin 1000 mg in NS [...] Brent Lemos MD at 08/05/2022 11:35 AM DIRECTOR AIRPORT CTOR AIRPORT CTOR AIRPORT * Ann Mcdonnell, PharmD - 08/05/2022 10:42 [...] Historical vancomycin use: vancomycin 1000 mg x1 11/21/22 @2330 Allergies: Allergies Allergen Reactions ??? Motrin [...] consult. Pharmacy Consult per Dr. Srinath MCDONNELL, PharmPatt Phone: [phone] 08/05/2022 10:42 AM CTOR AIRPORT * Lanre Winter MD - 08/04/2022 3:33 [...] Procedure Component Value Units Date/Time CULTURE, ANAEROBIC [[id number]] Collected: 08/02/22837 Order Status: Completed Lab Status: Preliminary result Updated: 08/03/22 1524 Specimen: TISSUE from OTHER (type in comments) Spec. Description TISSUE: RT DECORTICATION TISU Special Requests: NO SPECIAL REQUEST Culture Result: -- NO ANAEROBES ISOLATED TO DATE CULTURE TB/AFB OTHER (TYPE IN COMMENTS) [[id number]] Collected: 08/02/22837 Order Status: Sent Lab Status: In process Updated: 08/02/22 1009 Specimen: TISSUE from OTHER (type in comments) CULTURE, FUNGUS [[id number]] Collected: 08/02/22837 Order Status: Sent Lab Status: In process Updated: 08/02/22 1010 Specimen: TISSUE from OTHER (type in comments) CULTURE, TISSUE W/GRAM STAIN [[id number]] Collected: 08/02/22837 Order Status: Completed Lab Status: Preliminary result Updated: 08/03/22 1525 Specimen: TISSUE from OTHER (type in comments) Spec. Description TISSUE: RT DECORTICATION TISU Special Requests: NO SPECIAL REQUEST Gram Stain Result -- MODERATE NEUTROPHILS SEEN Gram Stain Result NO ORGANISMS SEEN Culture Result: NO GROWTH 1 DAY SMEAR,FLUOR STAIN,ACID FAST [[id number]] Collected: 08/02/22837 Order Status: No result Lab Status: In process Updated: 08/02/22 1012 CULTURE, FUNGUS [[id number]] Order Status: No result Lab Status: No result Specimen: BRONCHOALVEO LAV, RT LWR CULTURE TB/AFB OTHER (TYPE IN COMMENTS) [[id number]] Order Status: No result Lab Status: No result Specimen: BRONCHOALVEO LAV, RT LWR SMEAR,FLUOR STAIN,ACID FAST [[id number]] Order Status: No result Lab Status: No result Specimen: BRONCHOALVEO LAV, RT LWR CULTURE VIRAL RESPIRATORY RAPID [[id number]] Order Status: No result Lab Status: No result Specimen: BRONCHOALVEO LAV, RT LWR CULTURE RESPIRATORY W/ GRAM STAIN [[id number]] Order Status: No result Lab Status: No result Specimen: BRONCHIAL WASHING CULTURE, FUNGUS [[id number]] Order Status: No result Lab Status: No result Specimen: BRONCHIAL WASHING CULTURE TB/AFB OTHER (TYPE IN COMMENTS) [[id number]] Order Status: No result Lab Status: No result Specimen: BRONCHIAL WASHING SMEAR,FLUOR STAIN,ACID FAST [[id number]] Order Status: No result Lab Status: No result Specimen: BRONCHIAL WASHING CULTURE VIRAL RESPIRATORY RAPID [[id number]] Order Status: No result Lab Status: No result Specimen: BRONCHIAL WASHING CULTURE, QUANTITATIVE W/ GRAM STAIN [[id number]] Order Status: No result Lab Status: No result Specimen: BRONCHOALVEO LAV, RT LWR CULTURE, FUNGUS [[id number]] Collected: 07/30/221529 Order Status: No result Lab Status: In process Updated: 07/30/22 1701 CULTURE RESPIRATORY W/ GRAM STAIN [[id number]] Collected: 07/30/221529 Order Status: Completed Lab Status: Final result Updated: 08/03/22 1228 Specimen: SITE Spec. Description SITE: BRONCH WASH Special Requests: NO SPECIAL REQUEST Gram Stain Result -- MANY NEUTROPHILS SEEN Gram Stain Result NO ORGANISMS SEEN Culture Result: -- FEW TETE ALBICANS SMEAR,FLUOR STAIN,ACID FAST [[id number]] Collected: 07/30/221529 Order Status: Completed Lab Status: Final result Updated: 08/01/22 2318 ACID FAST SMEAR RESULT SEE NOTE 08/01/2022 11:18 PM Comment: Test Result Flag Unit RefValue Acid Fast Smear For Mycobacterium SOURCE: BRONCHIAL WASHING, BWASH/BAL MIX ACID FAST SMEAR FOR MYCOBACTERIUM FINAL Negative. Test Performed by: [address] [address] Test Design Engineer: Brent Alcaraz M.D. Ph.D.; CLIA# [id number] CULTURE TB/AFB OTHER [[id number]] Collected: 07/30/221529 Order Status: No result Lab Status: In process Updated: 07/30/22 1704 CULTURE, QUANTITATIVE W/ GRAM STAIN [[id number]] Collected: 07/30/221529 Order Status: Completed Lab Status: Final result Updated: 08/02/22 1457 Specimen: SITE Spec. Description SITE: BAL RLL Special Requests: NO SPECIAL REQUEST Gram Stain Result <10 NEUTROPHILS PER LPF Gram Stain Result <10 EPITHELIAL CELLS PER LPF Gram Stain Result -- RARE GRAM NEGATIVE RODS Culture Result: -- 500 CFU/ML YEAST , ID UPON REQUEST CULTURE, FUNGUS [[id number]] Collected: 07/30/221529 Order Status: Canceled Lab Status: No result SMEAR,FLUOR STAIN,ACID FAST [[id number]] Collected: 07/30/221529 Order Status: Canceled Lab Status: No result CULTURE TB/AFB OTHER [[id number]] Collected: 07/30/221529 Order Status: Canceled Lab Status: No result CULTURE CMV [[id number]] Collected: 07/30/221529 Order Status: No result Lab Status: In process Updated: 07/31/22 1431 CULTURE HERPES [[id number]] Collected: 07/30/221529 Order Status: Completed Lab Status: Final result Updated: 08/03/22 1542 HERPES SIMPLEX VIRUS CULTURE REPORT Comment: Herpes Simplex Virus Culture SOURCE : BAL/BWASH MIX IN RESULT Not Isolated Reference Range: Not Isolated Test Performed by [facility], [address] [place] [address] Adrián Balderas M.D., Ph.D., Director of Laboratories , CLIA [id number] Specimen Type BAL/BWASH MIX IN VTM 1 TO 1 RATIO, FRZ NEG 70 CULTURE VIRAL RESPIRATORY RAPID [[id number]] Collected: 07/30/221529 Order Status: No result Lab Status: In process Updated: 07/31/22 1435 CULTURE RESPIRATORY W/ GRAM STAIN [[id number]] Collected: 07/28/221424 Order Status: Completed Lab Status: [...] -- MODERATE PRESUMPTIVE TETE ALBICANS CULTURE, FUNGUS [[id number]] Collected: 07/28/221424 Order Status: Sent Lab Status: In process Updated: 07/31/22 133 Specimen: SPUTUM, EXPECTORATED CULTURE TB/AFB OTHER (TYPE IN COMMENTS) [[id number]] Collected: 07/28/221424 Order Status: Sent Lab Status: No result Specimen: SPUTUM, EXPECTORATED SMEAR,FLUOR STAIN,ACID FAST [[id number]] Collected: 07/28/221424 Order Status: No result Lab Status: In process Updated: 07/28/22 1612 HISTOPLASMA ANTIGEN [[id number]] Collected: 07/28/221423 Order Status: Sent Lab Status: No result Specimen: BLOOD HISTOPLASMA ANTIGEN [[id number]] Collected: 07/28/221423 Order Status: Canceled Lab Status: No result Specimen: BLOOD GLUCOSE, BODY FLUID [[id number]] Order Status: Canceled Lab Status: No result Specimen: PLEURAL FLUID PH BODY FLUID [[id number]] Order Status: Canceled Lab Status: No result Specimen: PLEURAL FLUID CULTURE, BODY FLUID W/ GRAM STAIN [[id number]] Order Status: Canceled Lab Status: No result Specimen: PLEURAL FLUID CULTURE, ANAEROBIC [[id number]] Order Status: Canceled Lab Status: No result Specimen: PLEURAL FLUID CULTURE, FUNGUS [[id number]] Order Status: Canceled Lab Status: No result Specimen: PLEURAL FLUID LDH BODY FLUID [[id number]] Collected: 07/27/22 1030 Order Status: Completed Lab Status: Final result Updated: 07/27/221521 Specimen: PLEURAL FLUID FLUID LDH >4,000 UNITS/L Comment: REFERENCE RANGE NOT ESTABLISHED FOR THIS BODY FLUID. SOURCE (FLUID) PLEURAL FLUID CELL COUNT W/ DIFF BODY FLUID [[id number]] Collected: 07/27/221029 Order Status: Completed Lab Status: Final result Updated: 07/27/22 1545 Specimen: PLEURAL FLUID SOURCE (FLUID) PLEURAL FLUID FL WBC 144.450 x10'3/uL Comment: REFERENCE RANGE NOT ESTABLISHED FL RBC 0.090 x10'6/uL Comment: REFERENCE RANGE NOT ESTABLISHED DIFFERENTIAL MANUAL DIFFERENTIAL PERFORMED ON CONCENTRATED CYTOSPIN CELLS COUNTED 100 No COUNTED SEGS (FLUID) 97 % LYMPHS (FLUID) 3 % PROTEIN TOTAL FLUID [[id number]] Collected: 07/27/221029 Order Status: Completed Lab Status: Final result Updated: 07/27/22 1522 Specimen: PLEURAL FLUID PROTEIN (FLUID) 3.5 G/DL Comment: REFERENCE RANGE NOT ESTABLISHED FOR THIS BODY FLUID. SOURCE (FLUID) PLEURAL FLUID CULTURE, BODY FLUID W/ GRAM STAIN [[id number]] Collected: 07/27/221029 Order Status: Canceled Lab Status: No result Specimen: PLEURAL FLUID CULTURE, ANAEROBIC [[id number]] Collected: 07/27/221029 Order Status: Canceled Lab Status: No result Specimen: PLEURAL FLUID CULTURE, BODY FLUID W/ GRAM STAIN [[id number]] (Susceptibility) Collected: 07/27/221029 Order Status: Completed Lab [...] Sensitive TRIMETH-SULFAMETH. Resistant VANCOMYCIN Sensitive CULTURE, ANAEROBIC [[id number]] (Susceptibility) Collected: 07/27/221029 Order Status: Completed Lab Status: Final result Updated: 08/01/22 0826 Specimen: SITE Spec. Description SITE: RT PLEURAL FLUID Special Requests: NO SPECIAL REQUEST Culture Result: -- FEW MICROAEROPHILIC STREPTOCOCCUS Susceptibility Microaerophilic streptococcus ARLEN (ETEST) CEFOTAXIME 0.023 Sensitive PENICILLIN G 0.008 Sensitive BLASTOMYCES AG MVISTA (TM), EIA [[id number]] Order Status: No result Lab Status: No result Specimen: BLOOD BLASTOMYCES AG MVISTA (TM), EIA [[id number]] Order Status: No result Lab Status: No result Specimen: URINE CORONAVIRUS (COVID 19) PCR - Asymptomatic patients, may be completed at physician discretion [[id number]] Collected: 07/25/222031 Order Status: Sent Lab Status: No result Specimen: NASOPHARYNGEAL SWAB STREP PNEUMO AG URINE [[id number]] Collected: 07/25/222030 Order Status: Completed Lab Status: [...] Type URINE VOIDED MRSA PCR nares Screening [[id number]] Collected: 07/25/222030 Order Status: Canceled Lab Status: No result Specimen: NASAL CULTURE, BACTERIA, BLOOD [[id number]] Collected: 07/25/221416 Order Status: Completed Lab Status: Final result Updated: 07/30/222144 Specimen: BLOOD Spec. Description BLOOD Special Requests: NO SPECIAL REQUEST Culture Result: NO GROWTH 5 DAYS CULTURE, BACTERIA, BLOOD [[id number]] Collected: 07/25/221415 Order Status: Completed Lab Status: [...] [facility] the [facility]: Problem List Items Addressed This Visit [...] improvement LANRE WINTER MD 3:33 PM 08/04/2022 CTOR AIRPORT * Ann Mcdonnell, PharmD - 08/04/2022 3:28 [...] Consult per Dr. Srinath MCDONNELL, PharmD Phone: [phone] 08/04/2022 3:28 PM CTOR AIRPORT * Patel Kelsey MD - 08/04/2022 11:37 [...] Sputum cultures with presumptive tete albicans ?? [facility] Pulmonology Plan/ Recommendations: -??S/p Chest tube placement [...] 1113 08/01/22 0242 08/01/22 1131 08/03/22 0222 08/04/224 NA 137 140 138 136 137 K [...] Katie Paula MD at 08/04/2022 1:46 PM DIRECTOR AIRPORT CTOR AIRPORT [facility] AIRPORT Associated attestation - Katie Paula MD - 08/04/2022 1:46 PM DIRECTOR AIRPORT [facility] Pulmonary and Critical Care Medicine Attending [...] Brent Lemos MD at 08/04/2022 12:55 PM DIRECTOR AIRPORT CTOR AIRPORT CTOR AIRPORT * SMITH Handley - 08/03/2022 4:38 PM CST OT Treatment Discharge Recommendation: home with assistance Activity 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 08/03/22 1418 Therapy Visit OT Received On 08/03/22 Reason for admission Update: Pt had VATS with R decorication on 08/02 with R chest tube placement (CT to suction). Discussed with Ana MOYA who okayed commercial insurance underwriter proceed with POC. Pt is a 67 [...] was notusing at home. 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 Pt [...] Pt stated he walked that way prior, commercial insurance underwriter discussed safety concerns. Other (Comment) Pt performed [...] Name: Ray Phillips Primary Language of learner: Israeli Patient was educated on transfers ADLs balance therapy plan safety energy conservation. Education was completed one to one verbal this date. Preference of learning new concepts one to one verbal Barriers to education this date were fatigue. Response to education this date verbalized understanding verbalized recall asks questions demos with verbal cues needs reinforcement needs follow up needs assistance. CTOR AIRPORT * Lanre Winter MD - 08/03/2022 3:18 [...] Procedure Component Value Units Date/Time CULTURE, ANAEROBIC [[id number]] Collected: 08/02/22 0838 Order Status: Sent Lab Status: In process Updated: 08/02/22 1008 Specimen: TISSUE from OTHER (type in comments) CULTURE TB/AFB OTHER (TYPE IN COMMENTS) [[id number]] Collected: 08/02/22837 Order Status: Sent Lab Status: In process Updated: 08/02/22 1009 Specimen: TISSUE from OTHER (type in comments) CULTURE, FUNGUS [[id number]] Collected: 08/02/22837 Order Status: Sent Lab Status: In process Updated: 08/02/22 1010 Specimen: TISSUE from OTHER (type in comments) CULTURE, TISSUE W/GRAM STAIN [[id number]] Collected: 08/02/22837 Order Status: Completed Lab Status: Preliminary result Updated: 08/02/22 1602 Specimen: TISSUE from OTHER (type in comments) Spec. Description TISSUE: RT DECORTICATION TISU Special Requests: NO SPECIAL REQUEST Follow-up of empyema hydropneumothorax result -- MODERATE NEUTROPHILS SEEN Gram Stain Result NO ORGANISMS SEEN Culture Result: PENDING SMEAR,FLUOR STAIN,ACID FAST [[id number]] Collected: 08/02/22837 Order Status: No result Lab Status: In process Updated: 08/02/22 1012 CULTURE, FUNGUS [[id number]] Order Status: No result Lab Status: No result Specimen: BRONCHOALVEO LAV, RT LWR CULTURE TB/AFB OTHER (TYPE IN COMMENTS) [[id number]] Order Status: No result Lab Status: No result Specimen: BRONCHOALVEO LAV, RT LWR SMEAR,FLUOR STAIN,ACID FAST [[id number]] Order Status: No result Lab Status: No result Specimen: BRONCHOALVEO LAV, RT LWR CULTURE VIRAL RESPIRATORY RAPID [[id number]] Order Status: No result Lab Status: No result Specimen: BRONCHOALVEO LAV, RT LWR CULTURE RESPIRATORY W/ GRAM STAIN [[id number]] Order Status: No result Lab Status: No result Specimen: BRONCHIAL WASHING CULTURE, FUNGUS [[id number]] Order Status: No result Lab Status: No result Specimen: BRONCHIAL WASHING CULTURE TB/AFB OTHER (TYPE IN COMMENTS) [[id number]] Order Status: No result Lab Status: No result Specimen: BRONCHIAL WASHING SMEAR,FLUOR STAIN,ACID FAST [[id number]] Order Status: No result Lab Status: No result Specimen: BRONCHIAL WASHING CULTURE VIRAL RESPIRATORY RAPID [[id number]] Order Status: No result Lab Status: No result Specimen: BRONCHIAL WASHING CULTURE, QUANTITATIVE W/ GRAM STAIN [[id number]] Order Status: No result Lab Status: No result Specimen: BRONCHOALVEO LAV, RT LWR CULTURE, FUNGUS [[id number]] Collected: 07/30/221529 Order Status: No result Lab Status: In process Updated: 07/30/22 170 CULTURE RESPIRATORY W/ GRAM STAIN [[id number]] Collected: 07/30/221529 Order Status: Completed Lab Status: Final result Updated: 08/03/22 1228 Specimen: SITE Spec. Description SITE: BRONCH WASH Special Requests: NO SPECIAL REQUEST Gram Stain Result -- MANY NEUTROPHILS SEEN Gram Stain Result NO ORGANISMS SEEN Culture Result: -- FEW TETE ALBICANS SMEAR,FLUOR STAIN,ACID FAST [[id number]] Collected: 07/30/221529 Order Status: Completed Lab Status: Final result Updated: 08/01/222317 ACID FAST SMEAR RESULT SEE NOTE 08/01/2022 11:18 PM Comment: Test Result Flag Unit RefValue Acid Fast Smear For Mycobacterium SOURCE: BRONCHIAL WASHING, BWASH/BAL MIX ACID FAST SMEAR FOR MYCOBACTERIUM FINAL Negative. Test Performed by: [place] [address] Test Design Engineer: Brent Alcaraz M.D. Ph.D.; CLIA# [id number] CULTURE TB/AFB OTHER [[id number]] Collected: 07/30/221529 Order Status: No result Lab Status: In process Updated: 07/30/22 170 CULTURE, QUANTITATIVE W/ GRAM STAIN [[id number]] Collected: 07/30/221529 Order Status: Completed Lab Status: Final result Updated: 08/02/22 1457 Specimen: SITE Spec. Description SITE: BAL RLL Special Requests: NO SPECIAL REQUEST Gram Stain Result <10 NEUTROPHILS PER LPF Gram Stain Result <10 EPITHELIAL CELLS PER LPF Gram Stain Result -- RARE GRAM NEGATIVE RODS Culture Result: -- 500 CFU/ML YEAST , ID UPON REQUEST CULTURE, FUNGUS [[id number]] Collected: 07/30/221529 Order Status: Canceled Lab Status: No result SMEAR,FLUOR STAIN,ACID FAST [[id number]] Collected: 07/30/22 153 Order Status: Canceled Lab Status: No result CULTURE TB/AFB OTHER [[id number]] Collected: 07/30/22 153 Order Status: Canceled Lab Status: No result CULTURE CMV [[id number]] Collected: 07/30/22 153 Order Status: No result Lab Status: In process Updated: 07/31/22 1431 CULTURE HERPES [[id number]] Collected: 07/30/221529 Order Status: No result Lab Status: In process Updated: 07/31/22 1432 CULTURE VIRAL RESPIRATORY RAPID [[id number]] Collected: 07/30/22 153 Order Status: No result Lab Status: In process Updated: 07/31/22 143 CULTURE RESPIRATORY W/ GRAM STAIN [[id number]] Collected: 07/28/221424 Order Status: Completed Lab Status: [...] -- MODERATE PRESUMPTIVE TETE ALBICANS CULTURE, FUNGUS [[id number]] Collected: 07/28/221424 Order Status: Sent Lab Status: In process Updated: 07/31/22 1336 Specimen: SPUTUM, EXPECTORATED CULTURE TB/AFB OTHER (TYPE IN COMMENTS) [[id number]] Collected: 07/28/221424 Order Status: Sent Lab Status: No result Specimen: SPUTUM, EXPECTORATED SMEAR,FLUOR STAIN,ACID FAST [[id number]] Collected: 07/28/221424 Order Status: No result Lab Status: In process Updated: 07/28/22 1612 HISTOPLASMA ANTIGEN [[id number]] Collected: 07/28/221423 Order Status: Sent Lab Status: No result Specimen: BLOOD HISTOPLASMA ANTIGEN [[id number]] Collected: 07/28/221423 Order Status: Canceled Lab Status: No result Specimen: BLOOD GLUCOSE, BODY FLUID [[id number]] Order Status: Canceled Lab Status: No result Specimen: PLEURAL FLUID PH BODY FLUID [[id number]] Order Status: Canceled Lab Status: No result Specimen: PLEURAL FLUID CULTURE, BODY FLUID W/ GRAM STAIN [[id number]] Order Status: Canceled Lab Status: No result Specimen: PLEURAL FLUID CULTURE, ANAEROBIC [[id number]] Order Status: Canceled Lab Status: No result Specimen: PLEURAL FLUID CULTURE, FUNGUS [[id number]] Order Status: Canceled Lab Status: No result Specimen: PLEURAL FLUID LDH BODY FLUID [[id number]] Collected: 07/27/221029 Order Status: Completed Lab Status: Final result Updated: 07/27/22 152 Specimen: PLEURAL FLUID FLUID LDH >4,000 UNITS/L Comment: REFERENCE RANGE NOT ESTABLISHED FOR THIS BODY FLUID. SOURCE (FLUID) PLEURAL FLUID CELL COUNT W/ DIFF BODY FLUID [[id number]] Collected: 07/27/221029 Order Status: Completed Lab Status: Final result Updated: 07/27/22 1545 Specimen: PLEURAL FLUID SOURCE (FLUID) PLEURAL FLUID FL WBC 144.450 x10'3/uL Comment: REFERENCE RANGE NOT ESTABLISHED FL RBC 0.090 x10'6/uL Comment: REFERENCE RANGE NOT ESTABLISHED DIFFERENTIAL MANUAL DIFFERENTIAL PERFORMED ON CONCENTRATED CYTOSPIN CELLS COUNTED 100 No COUNTED SEGS (FLUID) 97 % LYMPHS (FLUID) 3 % PROTEIN TOTAL FLUID [[id number]] Collected: 07/27/221029 Order Status: Completed Lab Status: Final result Updated: 07/27/22 152 Specimen: PLEURAL FLUID PROTEIN (FLUID) 3.5 G/DL Comment: REFERENCE RANGE NOT ESTABLISHED FOR THIS BODY FLUID. SOURCE (FLUID) PLEURAL FLUID CULTURE, BODY FLUID W/ GRAM STAIN [[id number]] Collected: 07/27/221029 Order Status: Canceled Lab Status: No result Specimen: PLEURAL FLUID CULTURE, ANAEROBIC [[id number]] Collected: 07/27/221029 Order Status: Canceled Lab Status: No result Specimen: PLEURAL FLUID CULTURE, BODY FLUID W/ GRAM STAIN [[id number]] (Susceptibility) Collected: 07/27/221029 Order Status: Completed Lab [...] Sensitive TRIMETH-SULFAMETH. Resistant VANCOMYCIN Sensitive CULTURE, ANAEROBIC [[id number]] (Susceptibility) Collected: 07/27/22 1030 Order Status: Completed Lab Status: Final result Updated: 08/01/22 08 Specimen: SITE Spec. Description SITE: RT PLEURAL FLUID Special Requests: NO SPECIAL REQUEST Culture Result: -- FEW MICROAEROPHILIC STREPTOCOCCUS Susceptibility Microaerophilic streptococcus ARLEN (ETEST) CEFOTAXIME 0.023 Sensitive PENICILLIN G 0.008 Sensitive BLASTOMYCES AG MVISTA (TM), EIA [[id number]] Order Status: No result Lab Status: No result Specimen: BLOOD BLASTOMYCES AG MVISTA (TM), EIA [[id number]] Order Status: No result Lab Status: No result Specimen: URINE CORONAVIRUS (COVID 19) PCR - Asymptomatic patients, may be completed at physician discretion [[id number]] Collected: 07/25/222031 Order Status: Sent Lab Status: No result Specimen: NASOPHARYNGEAL SWAB STREP PNEUMO AG URINE [[id number]] Collected: 07/25/222030 Order Status: Completed Lab Status: [...] Type URINE VOIDED MRSA PCR nares Screening [[id number]] Collected: 07/25/222030 Order Status: Canceled Lab Status: No result Specimen: NASAL CULTURE, BACTERIA, BLOOD [[id number]] Collected: 07/25/221416 Order Status: Completed Lab Status: Final result Updated: 07/30/222144 Specimen: BLOOD Spec. Description BLOOD Special Requests: NO SPECIAL REQUEST Culture Result: NO GROWTH 5 DAYS CULTURE, BACTERIA, BLOOD [[id number]] Collected: 07/25/221415 Order Status: Completed Lab Status: [...] with the following history as recorded in [facility]: Problem List Items Addressed This Visit [...] improvement LANRE WINTER MD 3:18 PM 08/03/2022 CTOR AIRPORT * Raquel Wetzel MD - 08/03/2022 2:55 [...] shifts: I/O last 3 completed shifts: In: 5 [P.O.:885; I.V.:1200] Out: 380 [Urine:300; Blood:40; Chest [...] Ross Blackburn MD at 08/04/2022 8:14 AM DIRECTOR AIRPORT CTOR AIRPORT CTOR AIRPORT * Ford Tay - 08/03/2022 2:52 PM [...] Pharmacy Consult per Dr. Srinath Tay Phone: [phone] 08/03/2022 2:54 PM Cosigned by Maria Antonia Quiñones, PharmD at 08/03/2022 3:40 PM DIRECTOR AIRPORT CTOR AIRPORT CTOR AIRPORT * Zoila Farias MD - 08/03/2022 12:40 PM CSTSummary: [facility] ID PROGRESS NOTE [facility] INFECTIOUS DISEASE PROGRESS NOTE Attending Provider:Dr. Robbins PCP: JOE TAM DO Reason for Consultation: Loculated pleural effusions, Pneumonia ASSESSMENT AND PLAN Ray Phillips is a 67-year-old male with medical history of chronic tobacco use who was transferred from [facility] near [place] for treatment resistant pneumonia and loculated pleural [...] understanding with plan. Thank you for consulting [facility] Infectious Disease, we will continue to follow. Paulina Dale APRN [facility] Infectious Disease 08/03/2022 Teaching physician note: Infectious Diseases Attending Physician: Patient personally interviewed and examined. Chart reviewed. Vitals, pertinent labs and imaging reviewed. [facility] Infectious Disease resident/fellow note reviewed and findings [...] NG Antimicrobial Regimen Unknown Abx regiment at [facility] Vancomycin IV 1.25g every 24h(07/25 - present) Cefepime IV 2g every 12h(07/25 - ) Metronidazole 500mg q8h (07/30-present) Azithromycin IV 500mg [...] Tracy Yo MD, 1 spray at 07/25/22 8065 ??? sterile talc (STERITALC) powder/slurry 8 g, [...] Intravenous, See Admin Instructions, Tracy Yo MD CTOR AIRPORT CTOR AIRPORT CTOR AIRPORT CTOR AIRPORT * Adali Henry, [facility] - 08/03/2022 11:43 AM CST [facility] PULMONOLOGY??PROGRESS??NOTE ?? Reason for Admission:?Respiratory failure (CMS/HCC) ?? Reason for Consult:??Respiratory failure, necrotizing pneumonia,??possible loculated??effusion??- empyema or abscess vs bronchopleural fistula ? ASSESSMENT/PLAN aRy Phillips??is a 67-year-old??male, with history of??chronic back [...] will continue to follow. ?? Adali Henry, MAJOR ASSEMBLY INSPECTOR 08/03/2022 SUBJECTIVE Patient doing well this morning, [...] Pulse: 77 [phone] 78 78 Resp: 19 16 07 18 Temp: 100.1 ??F (37.8 ??C) 99 [...] Lab 07/28/22 0703 07/31/22 0941 08/01/22 0242 08/03/222 WBC 13.5* 16.2* 11.1* 11.0* RBC 2.51* [...] Katie Paula MD at 08/03/2022 7:56 PM DIRECTOR AIRPORT CTOR AIRPORT CTOR AIRPORT Associated attestation - Katie Paula MD - 08/03/2022 7:56 PM DIRECTOR AIRPORT [facility] Pulmonary and Critical Care Medicine Attending [...] DME equipment recommendation: none Activity Recommendation for sergeant of corrections: up with 1, gaitbelt, chest tube to [...] suction). Discussed with Ana MOYA who okayed commercial insurance underwriter proceed with POC. Pt is a 67 [...] was notusing at home. 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 Pt [...] RN entering to give pain meds as commercial insurance underwriter exiting room. Education: Primary Learners Name: Ray Phillips Primary Language of learner: Israeli Patient Spouse was educated on exercises transfers balance bed mobility therapy plan safety. Education was completed one to one this date. Preference of learning new concepts one to one Barriers to education this date were pain fatigue. Response to education this date needs follow up. CTOR AIRPORT * Estephania Long RN - 08/03/2022 8:35 AM CST 08/03/22 0835 Interdisciplinary Group Conference Team Members Present Physician;Case/Care management (Dr. Winter: [facility]) Barriers to Discharge Barriers Not Medically ready Not Medically ready follow up [facility] status: s/p Vats: Chest tube to suction Patient's plan is to dc to home,lives with significant other: May need home oxygen eval prior to dc. CM will continue to follow for safe dc planning/dc needs. CTOR AIRPORT * Lanre Winter MD - 08/02/2022 3:34 [...] Procedure Component Value Units Date/Time CULTURE, ANAEROBIC [[id number]] Collected: 08/02/22837 Order Status: Sent Lab Status: In process Updated: 08/02/22 1008 Specimen: TISSUE from OTHER (type in comments) CULTURE TB/AFB OTHER (TYPE IN COMMENTS) [[id number]] Collected: 08/02/22837 Order Status: Sent Lab Status: In process Updated: 08/02/22 1009 Specimen: TISSUE from OTHER (type in comments) CULTURE, FUNGUS [[id number]] Collected: 08/02/22837 Order Status: Sent Lab Status: In process Updated: 08/02/22 1010 Specimen: TISSUE from OTHER (type in comments) CULTURE, TISSUE W/GRAM STAIN [[id number]] Collected: 12/01/22 0838 Order Status: Sent Lab Status: In process Updated: 08/02/22 1010 Specimen: TISSUE from OTHER (type in comments) SMEAR,FLUOR STAIN,ACID FAST [[id number]] Collected: 08/02/22 0838 Order Status: No result Lab Status: In process Updated: 08/02/22 1012 CULTURE, FUNGUS [[id number]] Order Status: No result Lab Status: No result Specimen: BRONCHOALVEO LAV, RT LWR CULTURE TB/AFB OTHER (TYPE IN COMMENTS) [[id number]] Order Status: No result Lab Status: No result Specimen: BRONCHOALVEO LAV, RT LWR SMEAR,FLUOR STAIN,ACID FAST [[id number]] Order Status: No result Lab Status: No result Specimen: BRONCHOALVEO LAV, RT LWR CULTURE VIRAL RESPIRATORY RAPID [[id number]] Order Status: No result Lab Status: No result Specimen: BRONCHOALVEO LAV, RT LWR CULTURE RESPIRATORY W/ GRAM STAIN [[id number]] Order Status: No result Lab Status: No result Specimen: BRONCHIAL WASHING CULTURE, FUNGUS [[id number]] Order Status: No result Lab Status: No result Specimen: BRONCHIAL WASHING CULTURE TB/AFB OTHER (TYPE IN COMMENTS) [[id number]] Order Status: No result Lab Status: No result Specimen: BRONCHIAL WASHING SMEAR,FLUOR STAIN,ACID FAST [[id number]] Order Status: No result Lab Status: No result Specimen: BRONCHIAL WASHING CULTURE VIRAL RESPIRATORY RAPID [[id number]] Order Status: No result Lab Status: No result Specimen: BRONCHIAL WASHING CULTURE, QUANTITATIVE W/ GRAM STAIN [[id number]] Order Status: No result Lab Status: No result Specimen: BRONCHOALVEO LAV, RT LWR CULTURE, FUNGUS [[id number]] Collected: 07/30/22 1530 Order Status: No result Lab Status: In process Updated: 07/30/22 1701 CULTURE RESPIRATORY W/ GRAM STAIN [[id number]] Collected: 07/30/22 153 Order Status: Completed Lab Status: Preliminary result Updated: 08/01/22 1519 Specimen: SITE Spec. Description SITE: BRONCH WASH Special Requests: NO SPECIAL REQUEST Gram Stain Result -- MANY NEUTROPHILS SEEN Gram Stain Result NO ORGANISMS SEEN Culture Result: -- FEW YEAST . FURTHER ID TO FOLLOW. SMEAR,FLUOR STAIN,ACID FAST [[id number]] Collected: 07/30/221529 Order Status: Completed Lab Status: Final result Updated: 08/01/22 2318 ACID FAST SMEAR RESULT SEE NOTE 08/01/2022 11:18 PM Comment: Test Result Flag Unit RefValue Acid Fast Smear For Mycobacterium SOURCE: BRONCHIAL WASHING, BWASH/BAL MIX ACID FAST SMEAR FOR MYCOBACTERIUM FINAL Negative. Test Performed by: [facility] [place] [address] Test Design Engineer: Brent Alcaraz M.D. Ph.D.; CLIA# [id number] CULTURE TB/AFB OTHER [[id number]] Collected: 07/30/221529 Order Status: No result Lab Status: In process Updated: 07/30/22 1704 CULTURE, QUANTITATIVE W/ GRAM STAIN [[id number]] Collected: 07/30/221529 Order Status: Completed Lab Status: Final result Updated: 08/02/22 1457 Specimen: SITE Spec. Description SITE: BAL RLL Special Requests: NO SPECIAL REQUEST Gram Stain Result <10 NEUTROPHILS PER LPF Gram Stain Result <10 EPITHELIAL CELLS PER LPF Gram Stain Result -- RARE GRAM NEGATIVE RODS Culture Result: -- 500 CFU/ML YEAST , ID UPON REQUEST CULTURE, FUNGUS [[id number]] Collected: 07/30/221529 Order Status: Canceled Lab Status: No result SMEAR,FLUOR STAIN,ACID FAST [[id number]] Collected: 07/30/221529 Order Status: Canceled Lab Status: No result CULTURE TB/AFB OTHER [[id number]] Collected: 07/30/221529 Order Status: Canceled Lab Status: No result CULTURE CMV [[id number]] Collected: 07/30/221529 Order Status: No result Lab Status: In process Updated: 07/31/22 1431 CULTURE HERPES [[id number]] Collected: 07/30/221529 Order Status: No result Lab Status: In process Updated: 07/31/22 1432 CULTURE VIRAL RESPIRATORY RAPID [[id number]] Collected: 11/28/22 1530 Order Status: No result Lab Status: In process Updated: 07/31/22 1435 CULTURE RESPIRATORY W/ GRAM STAIN [[id number]] Collected: 07/28/221424 Order Status: Completed Lab Status: [...] -- MODERATE PRESUMPTIVE TETE ALBICANS CULTURE, FUNGUS [[id number]] Collected: 07/28/221424 Order Status: Sent Lab Status: In process Updated: 07/31/221335 Specimen: SPUTUM, EXPECTORATED CULTURE TB/AFB OTHER (TYPE IN COMMENTS) [[id number]] Collected: 07/28/221424 Order Status: Sent Lab Status: No result Specimen: SPUTUM, EXPECTORATED SMEAR,FLUOR STAIN,ACID FAST [[id number]] Collected: 07/28/221424 Order Status: No result Lab Status: In process Updated: 07/28/22 1612 HISTOPLASMA ANTIGEN [[id number]] Collected: 07/28/221423 Order Status: Sent Lab Status: No result Specimen: BLOOD HISTOPLASMA ANTIGEN [[id number]] Collected: 07/28/221423 Order Status: Canceled Lab Status: No result Specimen: BLOOD GLUCOSE, BODY FLUID [[id number]] Order Status: Canceled Lab Status: No result Specimen: PLEURAL FLUID PH BODY FLUID [[id number]] Order Status: Canceled Lab Status: No result Specimen: PLEURAL FLUID CULTURE, BODY FLUID W/ GRAM STAIN [[id number]] Order Status: Canceled Lab Status: No result Specimen: PLEURAL FLUID CULTURE, ANAEROBIC [[id number]] Order Status: Canceled Lab Status: No result Specimen: PLEURAL FLUID CULTURE, FUNGUS [[id number]] Order Status: Canceled Lab Status: No result Specimen: PLEURAL FLUID LDH BODY FLUID [[id number]] Collected: 07/27/22 1030 Order Status: Completed Lab Status: Final result Updated: 07/27/22 1522 Specimen: PLEURAL FLUID FLUID LDH >4,000 UNITS/L Comment: REFERENCE RANGE NOT ESTABLISHED FOR THIS BODY FLUID. SOURCE (FLUID) PLEURAL FLUID CELL COUNT W/ DIFF BODY FLUID [[id number]] Collected: 07/27/221029 Order Status: Completed Lab Status: Final result Updated: 07/27/22 1545 Specimen: PLEURAL FLUID SOURCE (FLUID) PLEURAL FLUID FL WBC 144.450 x10'3/uL Comment: REFERENCE RANGE NOT ESTABLISHED FL RBC 0.090 x10'6/uL Comment: REFERENCE RANGE NOT ESTABLISHED DIFFERENTIAL MANUAL DIFFERENTIAL PERFORMED ON CONCENTRATED CYTOSPIN CELLS COUNTED 100 No COUNTED SEGS (FLUID) 97 % LYMPHS (FLUID) 3 % PROTEIN TOTAL FLUID [[id number]] Collected: 07/27/221029 Order Status: Completed Lab Status: Final result Updated: 07/27/221521 Specimen: PLEURAL FLUID PROTEIN (FLUID) 3.5 G/DL Comment: REFERENCE RANGE NOT ESTABLISHED FOR THIS BODY FLUID. SOURCE (FLUID) PLEURAL FLUID CULTURE, BODY FLUID W/ GRAM STAIN [[id number]] Collected: 07/27/221029 Order Status: Canceled Lab Status: No result Specimen: PLEURAL FLUID CULTURE, ANAEROBIC [[id number]] Collected: 07/27/221029 Order Status: Canceled Lab Status: No result Specimen: PLEURAL FLUID CULTURE, BODY FLUID W/ GRAM STAIN [[id number]] (Susceptibility) Collected: 07/27/221029 Order Status: Completed Lab [...] Sensitive TRIMETH-SULFAMETH. Resistant VANCOMYCIN Sensitive CULTURE, ANAEROBIC [[id number]] (Susceptibility) Collected: 07/27/221029 Order Status: Completed Lab Status: Final result Updated: 08/01/22 08 Specimen: SITE Spec. Description SITE: RT PLEURAL FLUID Special Requests: NO SPECIAL REQUEST Culture Result: -- FEW MICROAEROPHILIC STREPTOCOCCUS Susceptibility Microaerophilic streptococcus ARLEN (ETEST) CEFOTAXIME 0.023 Sensitive PENICILLIN G 0.008 Sensitive BLASTOMYCES AG MVISTA (TM), EIA [[id number]] Order Status: No result Lab Status: No result Specimen: BLOOD BLASTOMYCES AG MVISTA (TM), EIA [[id number]] Order Status: No result Lab Status: No result Specimen: URINE CORONAVIRUS (COVID 19) PCR - Asymptomatic patients, may be completed at physician discretion [[id number]] Collected: 07/25/222031 Order Status: Sent Lab Status: No result Specimen: NASOPHARYNGEAL SWAB STREP PNEUMO AG URINE [[id number]] Collected: 07/25/222030 Order Status: Completed Lab Status: [...] Type URINE VOIDED MRSA PCR nares Screening [[id number]] Collected: 07/25/222030 Order Status: Canceled Lab Status: No result Specimen: NASAL CULTURE, BACTERIA, BLOOD [[id number]] Collected: 07/25/221416 Order Status: Completed Lab Status: Final result Updated: 07/30/222144 Specimen: BLOOD Spec. Description BLOOD Special Requests: NO SPECIAL REQUEST Culture Result: NO GROWTH 5 DAYS CULTURE, BACTERIA, BLOOD [[id number]] Collected: 07/25/221415 Order Status: Completed Lab Status: [...] improvement LANRE WINTER MD 3:34 PM 08/02/2022 CTOR AIRPORT * Adali Henry, MAJOR ASSEMBLY INSPECTOR - 08/02/2022 12:50 PM CST [facility]??PROGRESS??NOTE [...] consult. We will continue to follow. ?? CRESCENCIO Mccarthy 08/02/2022 SUBJECTIVE Patient wondering when his surgery [...] Katie Paula MD at 08/02/2022 7:52 PM DIRECTOR AIRPORT CTOR AIRPORT CTOR AIRPORT Associated attestation - Katie Paula MD - 08/02/2022 7:52 PM DIRECTOR AIRPORT [facility] Pulmonary and Critical Care Medicine Attending Note: [...] Pharmacy Consult per Dr. Srinath Tay Phone: [phone] 08/02/2022 11:56 AM Cosigned by Maria Antonia Quiñones PharmD at 08/02/2022 3:49 PM DIRECTOR AIRPORT CTOR AIRPORT CTOR AIRPORT CTOR AIRPORT CTOR AIRPORT * Angela Dawkins RN - 08/02/2022 8:55 AM CSTSummary: D/C plans IDBR done with Dr Winter KERRIE ROSAS to discuss POC/D/C plans. See notes below. 08/02/22 1550 Interdisciplinary Group Conference Team Members Present Case/Care management;Physician Barriers to Discharge Barriers Not Medically ready Not Medically ready follow up Pt to have VATS today. Continue IMC status. CTOR AIRPORT * Lanre Winter MD - 08/01/2022 2:57 [...] Procedure Component Value Units Date/Time CULTURE, FUNGUS [[id number]] Order Status: No result Lab Status: No result Specimen: BRONCHOALVEO LAV, RT LWR CULTURE TB/AFB OTHER (TYPE IN COMMENTS) [[id number]] Order Status: No result Lab Status: No result Specimen: BRONCHOALVEO LAV, RT LWR SMEAR,FLUOR STAIN,ACID FAST [[id number]] Order Status: No result Lab Status: No result Specimen: BRONCHOALVEO LAV, RT LWR CULTURE VIRAL RESPIRATORY RAPID [[id number]] Order Status: No result Lab Status: No result Specimen: BRONCHOALVEO LAV, RT LWR CULTURE RESPIRATORY W/ GRAM STAIN [[id number]] Order Status: No result Lab Status: No result Specimen: BRONCHIAL WASHING CULTURE, FUNGUS [[id number]] Order Status: No result Lab Status: No result Specimen: BRONCHIAL WASHING CULTURE TB/AFB OTHER (TYPE IN COMMENTS) [[id number]] Order Status: No result Lab Status: No result Specimen: BRONCHIAL WASHING SMEAR,FLUOR STAIN,ACID FAST [[id number]] Order Status: No result Lab Status: No result Specimen: BRONCHIAL WASHING CULTURE VIRAL RESPIRATORY RAPID [[id number]] Order Status: No result Lab Status: No result Specimen: BRONCHIAL WASHING CULTURE, QUANTITATIVE W/ GRAM STAIN [[id number]] Order Status: No result Lab Status: No result Specimen: BRONCHOALVEO LAV, RT LWR CULTURE, FUNGUS [[id number]] Collected: 07/30/221529 Order Status: No result Lab Status: In process Updated: 07/30/22 1701 CULTURE RESPIRATORY W/ GRAM STAIN [[id number]] Collected: 07/30/221529 Order Status: Completed Lab Status: Preliminary result Updated: 07/31/221556 Specimen: SITE Spec. Description SITE: BRONCH WASH Special Requests: NO SPECIAL REQUEST Gram Stain Result -- MANY NEUTROPHILS SEEN Gram Stain Result NO ORGANISMS SEEN Culture Result: -- FEW YEAST , ID UPON REQUEST SMEAR,FLUOR STAIN,ACID FAST [[id number]] Collected: 07/30/221529 Order Status: No result Lab Status: In process Updated: 07/30/22 170 CULTURE TB/AFB OTHER [[id number]] Collected: 07/30/221529 Order Status: No result Lab Status: In process Updated: 07/30/22 170 CULTURE, QUANTITATIVE W/ GRAM STAIN [[id number]] Collected: 07/30/221529 Order Status: Completed Lab Status: Preliminary result Updated: 07/31/221557 Specimen: SITE Spec. Description SITE: BAL RLL Special Requests: NO SPECIAL REQUEST Gram Stain Result <10 NEUTROPHILS PER LPF Gram Stain Result <10 EPITHELIAL CELLS PER LPF Gram Stain Result -- RARE GRAM NEGATIVE RODS Culture Result: NO GROWTH 1 DAY CULTURE, FUNGUS [[id number]] Collected: 07/30/221529 Order Status: Canceled Lab Status: No result SMEAR,FLUOR STAIN,ACID FAST [[id number]] Collected: 07/30/221529 Order Status: Canceled Lab Status: No result CULTURE TB/AFB OTHER [[id number]] Collected: 07/30/221529 Order Status: Canceled Lab Status: No result CULTURE CMV [[id number]] Collected: 07/30/221529 Order Status: No result Lab Status: In process Updated: 07/31/22 1431 CULTURE HERPES [[id number]] Collected: 07/30/221529 Order Status: No result Lab Status: In process Updated: 07/31/22 1432 CULTURE VIRAL RESPIRATORY RAPID [[id number]] Collected: 07/30/22 1530 Order Status: No result Lab Status: In process Updated: 07/31/22 1435 CULTURE RESPIRATORY W/ GRAM STAIN [[id number]] Collected: 07/28/221424 Order Status: Completed Lab Status: [...] -- MODERATE PRESUMPTIVE TETE ALBICANS CULTURE, FUNGUS [[id number]] Collected: 07/28/221424 Order Status: Sent Lab Status: In process Updated: 07/31/22 1336 Specimen: SPUTUM, EXPECTORATED CULTURE TB/AFB OTHER (TYPE IN COMMENTS) [[id number]] Collected: 07/28/221424 Order Status: Sent Lab Status: No result Specimen: SPUTUM, EXPECTORATED SMEAR,FLUOR STAIN,ACID FAST [[id number]] Collected: 07/28/221424 Order Status: No result Lab Status: In process Updated: 07/28/22 1612 HISTOPLASMA ANTIGEN [[id number]] Collected: 07/28/221423 Order Status: Sent Lab Status: No result Specimen: BLOOD HISTOPLASMA ANTIGEN [[id number]] Collected: 07/28/221423 Order Status: Canceled Lab Status: No result Specimen: BLOOD GLUCOSE, BODY FLUID [[id number]] Order Status: Canceled Lab Status: No result Specimen: PLEURAL FLUID PH BODY FLUID [[id number]] Order Status: Canceled Lab Status: No result Specimen: PLEURAL FLUID CULTURE, BODY FLUID W/ GRAM STAIN [[id number]] Order Status: Canceled Lab Status: No result Specimen: PLEURAL FLUID CULTURE, ANAEROBIC [[id number]] Order Status: Canceled Lab Status: No result Specimen: PLEURAL FLUID CULTURE, FUNGUS [[id number]] Order Status: Canceled Lab Status: No result Specimen: PLEURAL FLUID LDH BODY FLUID [[id number]] Collected: 07/27/221029 Order Status: Completed Lab Status: Final result Updated: 07/27/22 1522 Specimen: PLEURAL FLUID FLUID LDH >4,000 UNITS/L Comment: REFERENCE RANGE NOT ESTABLISHED FOR THIS BODY FLUID. SOURCE (FLUID) PLEURAL FLUID CELL COUNT W/ DIFF BODY FLUID [[id number]] Collected: 07/27/221029 Order Status: Completed Lab Status: Final result Updated: 07/27/22 1545 Specimen: PLEURAL FLUID SOURCE (FLUID) PLEURAL FLUID FL WBC 144.450 x10'3/uL Comment: REFERENCE RANGE NOT ESTABLISHED FL RBC 0.090 x10'6/uL Comment: REFERENCE RANGE NOT ESTABLISHED DIFFERENTIAL MANUAL DIFFERENTIAL PERFORMED ON CONCENTRATED CYTOSPIN CELLS COUNTED 100 No COUNTED SEGS (FLUID) 97 % LYMPHS (FLUID) 3 % PROTEIN TOTAL FLUID [[id number]] Collected: 07/27/221029 Order Status: Completed Lab Status: Final result Updated: 07/27/22 152 Specimen: PLEURAL FLUID PROTEIN (FLUID) 3.5 G/DL Comment: REFERENCE RANGE NOT ESTABLISHED FOR THIS BODY FLUID. SOURCE (FLUID) PLEURAL FLUID CULTURE, BODY FLUID W/ GRAM STAIN [[id number]] Collected: 07/27/221029 Order Status: Canceled Lab Status: No result Specimen: PLEURAL FLUID CULTURE, ANAEROBIC [[id number]] Collected: 07/27/221029 Order Status: Canceled Lab Status: No result Specimen: PLEURAL FLUID CULTURE, BODY FLUID W/ GRAM STAIN [[id number]] (Susceptibility) Collected: 07/27/221029 Order Status: Completed Lab [...] Sensitive TRIMETH-SULFAMETH. Resistant VANCOMYCIN Sensitive CULTURE, ANAEROBIC [[id number]] (Susceptibility) Collected: 07/27/221029 Order Status: Completed Lab Status: Final result Updated: 08/01/22 0826 Specimen: SITE Spec. Description SITE: RT PLEURAL FLUID Special Requests: NO SPECIAL REQUEST Culture Result: -- FEW MICROAEROPHILIC STREPTOCOCCUS Susceptibility Microaerophilic streptococcus ARLEN (ETEST) CEFOTAXIME 0.023 Sensitive PENICILLIN G 0.008 Sensitive BLASTOMYCES AG MVISTA (TM), EIA [[id number]] Order Status: No result Lab Status: No result Specimen: BLOOD BLASTOMYCES AG MVISTA (TM), EIA [[id number]] Order Status: No result Lab Status: No result Specimen: URINE CORONAVIRUS (COVID 19) PCR - Asymptomatic patients, may be completed at physician discretion [[id number]] Collected: 07/25/222031 Order Status: Sent Lab Status: No result Specimen: NASOPHARYNGEAL SWAB STREP PNEUMO AG URINE [[id number]] Collected: 07/25/222030 Order Status: Completed Lab Status: [...] Type URINE VOIDED MRSA PCR nares Screening [[id number]] Collected: 07/25/222030 Order Status: Canceled Lab Status: No result Specimen: NASAL CULTURE, BACTERIA, BLOOD [[id number]] Collected: 07/25/221416 Order Status: Completed Lab Status: Final result Updated: 07/30/222144 Specimen: BLOOD Spec. Description BLOOD Special Requests: NO SPECIAL REQUEST Culture Result: NO GROWTH 5 DAYS CULTURE, BACTERIA, BLOOD [[id number]] Collected: 07/25/221415 Order Status: Completed Lab Status: [...] counselling LANRE WINTER MD 2:57 PM 08/01/2022 CTOR AIRPORT * Dayami Robbins MD - 08/01/2022 2:48 PM CSTSummary: [facility] ID progress note [facility] INFECTIOUS DISEASE PROGRESS NOTE Attending Provider:Dr. Robbins PCP: JOE TAM DO Reason for Consultation: Loculated pleural effusions, Pneumonia ASSESSMENT AND PLAN Ray Phillips is a 67-year-old male with medical history of chronic tobacco use who was transferred from [facility] near [place] for treatment resistant pneumonia and loculated pleural [...] understanding with plan. Thank you for consulting [facility] Infectious Disease, we will continue to follow. Paulina Dale APRN [facility] Infectious Disease 08/01/2022 Teaching physician note: Infectious Diseases Attending Physician: Patient personally interviewed and examined. Labs and vitals reviewed. [facility] Infectious Disease mid-level provider's note reviewed and [...] NG Antimicrobial Regimen Unknown Abx regiment at [facility] Vancomycin IV 1.25g every 24h(07/25 - present) [...] Med, Raul Osuna MD, 50 mcg at 4 FLUoxetine (PROzac) capsule 20 mg, 20 mg, Oral, Daily, Tracy Yo MD, 20 mg at 08/01/22 0906 gabapentin (NEURONTIN) capsule 300 mg, 300 mg, [...] 8 mL at 07/27/22 1016 lidocaine-EPINEPHrine 2 %-1:995961 injection 20 mL, 20 mL, Intradermal, Once, [...] Tracy Yo MD, 1 spray at 07/25/22 230 traZODone (DESYREL) tablet 100 mg, 100 mg, [...] Intravenous, See Admin Instructions, Tracy Yo MD CTOR AIRPORT CTOR AIRPORT CTOR AIRPORT CTOR AIRPORT * Adali Kenisha Henry, MAJOR ASSEMBLY INSPECTOR - 08/01/2022 11:14 AM CST [facility] PULMONOLOGY??PROGRESS??NOTE ?? Reason for Admission:?Respiratory failure (CMS/HCC) ?? Reason for Consult:??Respiratory failure, necrotizing pneumonia,??possible loculated??effusion??- empyema or abscess vs bronchopleural fistula ? ASSESSMENT/PLAN Ray Drake Dion??is a 67-year-old??male, with history of??chronic back pain,??50-pk [...] We will continue to follow.? Adali Henry, MAJOR ASSEMBLY INSPECTOR 08/01/2022 SUBJECTIVE Patient wondering when his surgery [...] 07/27/22 0240 07/28/22 0703 07/31/22 0941 08/01/22 024 WBC 17.6* -- -- 17.5* -- 21.3* [...] Katie Paula MD at 08/01/2022 7:49 PM DIRECTOR AIRPORT CTOR AIRPORT CTOR AIRPORT Associated attestation - Katie Paula MD - 08/01/2022 7:49 PM DIRECTOR AIRPORT [facility] Pulmonary and Critical Care Medicine Attending Note: [...] (est. AUC of 508) Next level due: 12 w/ AM labs Pharmacy will continue to follow cultures, clinical status, and appropriateness of therapy. Thank you for the consult. Pharmacy Consult per Dr. Srinath Tay Phone: [phone] 08/01/2022 1:35 PM Cosigned by Maria Antonia Quiñones PharmD at 08/01/2022 3:38 PM DIRECTOR AIRPORT CTOR AIRPORT CTOR AIRPORT Associated attestation - Maria Antonia Quiñones PharmD - 08/01/2022 3:38 PM DIRECTOR AIRPORT Next LVL will be Saturday 12 AM [...] VATS 08/02. Continue IMC status. CM following. CTOR AIRPORT * Raquel Wetzel MD - 08/01/2022 6:56 [...] 8 mLat 07/27/22 1016 ??? lidocaine-EPINEPHrine 2 %-1:694582 injection 20 mL, 20 mL, Intradermal, Once, [...] Ross Blackburn MD at 08/02/2022 6:58 AM DIRECTOR AIRPORT CTOR AIRPORT CTOR AIRPORT * Jena Hayes, SMITH - 07/31/2022 4:01 PM CST OT Treatment Discharge Recommendation: home with assistance Activity Recommendation for sergeant of corrections: Up with gait belt x1 assist using [...] was notusing at home. 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 Pt [...] Assistance Independent UE Dressing Deficit Setup;Thread RUE;Thread LUE;roll over press operator head;Pull around back;Pull down in back UE [...] Name: Ray Phillips Primary Language of learner: Israeli Patient was educated on exercises transfers ADLs balance bed mobility therapy plan safety energy conservation. Education was completed one to one verbal this date. Preference of learning new concepts one to one verbal Barriers to education this date were fatigue. Response to education this date verbalized understanding verbalized recall asks questions demos with verbal cues demos adequately needs follow up needs assistance. CTOR AIRPORT * Dayami Robbins MD - 07/31/2022 1:55 PM CSTSummary: [facility] ID PROGRESS NOTE [facility] INFECTIOUS DISEASE PROGRESS NOTE Attending Provider:Dr. Robbins PCP: JOE TAM DO Reason for Consultation: Loculated pleural effusions, Pneumonia ASSESSMENT AND PLAN Ray Phillips is a 67-year-old male with medical history of chronic tobacco use who was transferred from [facility] near [place] for treatment resistant pneumonia and loculated pleural [...] understanding with plan. Thank you for consulting [facility] Infectious Disease, we will continue to follow. Paulina Dale APRN [facility] Infectious Disease 07/31/2022 Teaching physician note: Infectious Diseases Attending Physician: Patient personally interviewed and examined. Labs and vitals reviewed. [facility] Infectious Disease mid-level provider's note reviewed and [...] NG Antimicrobial Regimen Unknown Abx regiment at [facility] Vancomycin IV 1.25g every 24h(07/25 - present) [...] puff, 2 puff, Inhalation, Q4H PRN, Tracy oY MD alteplase (CATHFLO) injection, , , Code/Trauma/Sedation [...] 8 mL at 07/27/22 1016 lidocaine-EPINEPHrine 2 %-1:416715 injection 20 mL, 20 mL, Intradermal, Once, Nery Patrick MD LORazepam (ATIVAN) tablet 1 mg, 1 mg, Oral, BID PRN, Tracy Yo MD, 1 mg at 07/31/22 1003 metroNIDAZOLE (FLAGYL) tablet 500 mg, 500 mg, Oral, 3 times per day, Paulina Dale NP, 500 mg at 07/31/22 0649 morphine (MSIR) [...] Intravenous, See Admin Instructions, Tracy Yo MD CTOR AIRPORT CTOR AIRPORT CTOR AIRPORT * Karla Berrios, ASSISTANT PARALEGAL - 07/31/2022 1:40 PM CST PT Treatment Discharge Recommendation: home with assistance Activity Recommendation for sergeant of corrections: up with 1, 2ww, gait belt 07/31/22 [...] was notusing at home. 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 Pt [...] Name: Ray Phillips Primary Language of learner: Israeli Patient was educated on precautions transfers balance bed mobility therapy plan gait safety. Education was completed one to one verbal hands-on demonstration this date. Preference of learning new concepts one to one verbal hands-on demonstration Barriers to education this date were none. Response to education this date verbalized understanding. CTOR AIRPORT * Patel Kelsey MD - 07/31/2022 12:43 [...] 112/63 97/68 Pulse: 63 69 72 Resp: Temp: 97.8 ??F (36.6 ??C) 98.2 ??F [...] change. Ordered By: RODNEY NOLASCO Interpreted By: Niegl Peña MD, 07/30/2022 8:33 AM Cosigned by Katie Paula MD at 07/31/2022 4:44 PM DIRECTOR AIRPORT CTOR AIRPORT CTOR AIRPORT Associated attestation - Katie Paula MD - 07/31/2022 4:44 PM DIRECTOR AIRPORT [facility] Pulmonary and Critical Care Medicine Attending [...] Procedure Component Value Units Date/Time CULTURE, FUNGUS [[id number]] Order Status: No result Lab Status: No result Specimen: BRONCHOALVEO LAV, RT LWR CULTURE TB/AFB OTHER (TYPE IN COMMENTS) [[id number]] Order Status: No result Lab Status: No result Specimen: BRONCHOALVEO LAV, RT LWR SMEAR,FLUOR STAIN,ACID FAST [[id number]] Order Status: No result Lab Status: No result Specimen: BRONCHOALVEO LAV, RT LWR CULTURE VIRAL RESPIRATORY RAPID [[id number]] Order Status: No result Lab Status: No result Specimen: BRONCHOALVEO LAV, RT LWR CULTURE RESPIRATORY W/ GRAM STAIN [[id number]] Order Status: No result Lab Status: No result Specimen: BRONCHIAL WASHING CULTURE, FUNGUS [[id number]] Order Status: No result Lab Status: No result Specimen: BRONCHIAL WASHING CULTURE TB/AFB OTHER (TYPE IN COMMENTS) [[id number]] Order Status: No result Lab Status: No result Specimen: BRONCHIAL WASHING SMEAR,FLUOR STAIN,ACID FAST [[id number]] Order Status: No result Lab Status: No result Specimen: BRONCHIAL WASHING CULTURE VIRAL RESPIRATORY RAPID [[id number]] Order Status: No result Lab Status: No result Specimen: BRONCHIAL WASHING CULTURE, QUANTITATIVE W/ GRAM STAIN [[id number]] Order Status: No result Lab Status: No result Specimen: BRONCHOALVEO LAV, RT LWR CULTURE, FUNGUS [[id number]] Collected: 07/30/221529 Order Status: No result Lab Status: In process Updated: 07/30/22 170 CULTURE RESPIRATORY W/ GRAM STAIN [[id number]] Collected: 07/30/221529 Order Status: Completed Lab Status: Preliminary result Updated: 07/30/222016 Specimen: SITE Spec. Description SITE: BRONCH WASH Special Requests: NO SPECIAL REQUEST Gram Stain Result -- MANY NEUTROPHILS SEEN Gram Stain Result NO ORGANISMS SEEN Culture Result: PENDING SMEAR,FLUOR STAIN,ACID FAST [[id number]] Collected: 07/30/22 1530 Order Status: No result Lab Status: In process Updated: 07/30/22 1703 CULTURE TB/AFB OTHER [[id number]] Collected: 07/30/221529 Order Status: No result Lab Status: In process Updated: 07/30/22 1704 CULTURE, QUANTITATIVE W/ GRAM STAIN [[id number]] Collected: 07/30/221529 Order Status: Completed Lab Status: Preliminary result Updated: 07/31/22 044 Specimen: SITE Spec. Description SITE: BAL RLL Special Requests: NO SPECIAL REQUEST Gram Stain Result <10 NEUTROPHILS PER LPF Gram Stain Result <10 EPITHELIAL CELLS PER LPF Gram Stain Result -- RARE GRAM NEGATIVE RODS Culture Result: PENDING CULTURE, FUNGUS [[id number]] Collected: 07/30/221529 Order Status: Canceled Lab Status: No result SMEAR,FLUOR STAIN,ACID FAST [[id number]] Collected: 07/30/221529 Order Status: Canceled Lab Status: No result CULTURE TB/AFB OTHER [[id number]] Collected: 07/30/221529 Order Status: Canceled Lab Status: No result CULTURE RESPIRATORY W/ GRAM STAIN [[id number]] Collected: 07/28/221424 Order Status: Completed Lab Status: [...] -- MODERATE PRESUMPTIVE TETE ALBICANS CULTURE, FUNGUS [[id number]] Collected: 07/28/221424 Order Status: Sent Lab Status: No result Specimen: SPUTUM, EXPECTORATED CULTURE TB/AFB OTHER (TYPE IN COMMENTS) [[id number]] Collected: 07/28/221424 Order Status: Sent Lab Status: No result Specimen: SPUTUM, EXPECTORATED SMEAR,FLUOR STAIN,ACID FAST [[id number]] Collected: 07/28/221424 Order Status: No result Lab Status: In process Updated: 07/28/22 1612 HISTOPLASMA ANTIGEN [[id number]] Collected: 07/28/221423 Order Status: Sent Lab Status: No result Specimen: BLOOD HISTOPLASMA ANTIGEN [[id number]] Collected: 07/28/221423 Order Status: Canceled Lab Status: No result Specimen: BLOOD GLUCOSE, BODY FLUID [[id number]] Order Status: Sent Lab Status: No result Specimen: PLEURAL FLUID PH BODY FLUID [[id number]] Order Status: Sent Lab Status: No result Specimen: PLEURAL FLUID CULTURE, BODY FLUID W/ GRAM STAIN [[id number]] Order Status: Canceled Lab Status: No result Specimen: PLEURAL FLUID CULTURE, ANAEROBIC [[id number]] Order Status: Canceled Lab Status: No result Specimen: PLEURAL FLUID CULTURE, FUNGUS [[id number]] Order Status: Canceled Lab Status: No result Specimen: PLEURAL FLUID LDH BODY FLUID [[id number]] Collected: 07/27/221029 Order Status: Completed Lab Status: Final result Updated: 07/27/221521 Specimen: PLEURAL FLUID FLUID LDH >4,000 UNITS/L Comment: REFERENCE RANGE NOT ESTABLISHED FOR THIS BODY FLUID. SOURCE (FLUID) PLEURAL FLUID CELL COUNT W/ DIFF BODY FLUID [[id number]] Collected: 07/27/221029 Order Status: Completed Lab Status: Final result Updated: 07/27/22 154 Specimen: PLEURAL FLUID SOURCE (FLUID) PLEURAL FLUID FL WBC 144.450 x10'3/uL Comment: REFERENCE RANGE NOT ESTABLISHED FL RBC 0.090 x10'6/uL Comment: REFERENCE RANGE NOT ESTABLISHED DIFFERENTIAL MANUAL DIFFERENTIAL PERFORMED ON CONCENTRATED CYTOSPIN CELLS COUNTED 100 No COUNTED SEGS (FLUID) 97 % LYMPHS (FLUID) 3 % PROTEIN TOTAL FLUID [[id number]] Collected: 07/27/221029 Order Status: Completed Lab Status: Final result Updated: 07/27/221521 Specimen: PLEURAL FLUID PROTEIN (FLUID) 3.5 G/DL Comment: REFERENCE RANGE NOT ESTABLISHED FOR THIS BODY FLUID. SOURCE (FLUID) PLEURAL FLUID CULTURE, BODY FLUID W/ GRAM STAIN [[id number]] Collected: 07/27/221029 Order Status: Canceled Lab Status: No result Specimen: PLEURAL FLUID CULTURE, ANAEROBIC [[id number]] Collected: 07/27/221029 Order Status: Canceled Lab Status: No result Specimen: PLEURAL FLUID CULTURE, BODY FLUID W/ GRAM STAIN [[id number]] (Susceptibility) Collected: 07/27/221029 Order Status: Completed Lab [...] Sensitive TRIMETH-SULFAMETH. Resistant VANCOMYCIN Sensitive CULTURE, ANAEROBIC [[id number]] Collected: 07/27/22 1030 Order Status: Completed Lab Status: Preliminary result Updated: 07/30/221740 Specimen: SITE Spec. Description SITE: RT PLEURAL FLUID Special Requests: NO SPECIAL REQUEST Culture Result: -- FEW MICROAEROPHILIC STREPTOCOCCUS BLASTOMYCES AG MVISTA (TM), EIA [[id number]] Order Status: No result Lab Status: No result Specimen: BLOOD BLASTOMYCES AG MVISTA (TM), EIA [[id number]] Order Status: No result Lab Status: No result Specimen: URINE CORONAVIRUS (COVID 19) PCR - Asymptomatic patients, may be completed at physician discretion [[id number]] Collected: 07/25/222031 Order Status: Sent Lab Status: No result Specimen: NASOPHARYNGEAL SWAB STREP PNEUMO AG URINE [[id number]] Collected: 07/25/222030 Order Status: Completed Lab Status: [...] Type URINE VOIDED MRSA PCR nares Screening [[id number]] Collected: 07/25/222030 Order Status: Canceled Lab Status: No result Specimen: NASAL CULTURE, BACTERIA, BLOOD [[id number]] Collected: 07/25/22 141 Order Status: Completed Lab Status: Final result Updated: 07/30/222144 Specimen: BLOOD Spec. Description BLOOD Special Requests: NO SPECIAL REQUEST Culture Result: NO GROWTH 5 DAYS CULTURE, BACTERIA, BLOOD [[id number]] Collected: 07/25/221415 Order Status: Completed Lab Status: [...] with the following history as recorded in [facility]: Problem List Items Addressed This Visit [...] counselling LANRE WINTER MD 11:32 AM 07/31/2022 [facility] * Estephania Long RN - 07/31/2022 9:09 AM CST 07/31/22 0909 Interdisciplinary Group Conference Team Members Present Physician;Case/Care management (Dr. Winter : [facility]) Barriers to Discharge Barriers Not Medically ready Not Medically ready follow up [facility] Status: Chest tube: s/p bronch Pulm following [facility]PORT * Ford Tay - 07/31/2022 8:47 AM [...] Pharmacy Consult per Dr. Srinath Tay Phone: [phone] 07/31/2022 12:56 PM Cosigned by Maria Antonia Quiñones, PharmD at 07/31/2022 2:22 PM DIRECTOR AIRPORT [facility]PORT [facility] * Raquel Wetzel MD - 07/31/2022 6:52 [...] 8 mLat 07/27/22 1016 ??? lidocaine-EPINEPHrine 2 %-1:469516 injection 20 mL, 20 mL, Intradermal, Once, [...] 100 mg, Oral, Nightly at bedtime, Tracy oY MD, 100 mg at 07/31/222008 ??? vancomycin [...] Ross Blackburn MD at 08/02/2022 6:57 AM DIRECTOR AIRPORT [facility]PORT [facility] * Dayami Robbins MD - 07/30/2022 2:10 PM CSTSummary: [facility] ID CHART NOTE [facility] INFECTIOUS DISEASE CHART NOTE Reason for Consultation: [...] any questions or concerns. Paulina Dale APRN [facility] Infectious Disease 07/30/2022 Teaching physician note: Infectious Diseases Attending Physician: Labs and vitals reviewed. [facility] Infectious Disease mid-level provider's note reviewed and findings verified. Case discussed with the Infectious Disease team [facility] CT[facility] AIRPORT CT[facility] AIRPORT * Ford Tay - 07/30/2022 1:48 PM [...] Pharmacy Consult per Dr. Srinath Tay Phone: [phone] 07/30/2022 1:48 PM Cosigned by Maria Antonia Quiñones, PharmD at 07/31/2022 8:10 AM DIRECTOR AIRPORT [facility] AIRPORT CT[facility] AIRPORT CT[facility] AIRPORT * Patel Kelsey MD - 07/30/2022 1:20 PM CST [facility] PULMONOLOGY??PROGRESS??NOTE ?? Attending Provider:??Florencio Amaya MD PCP:??GRACIELA LEIGH MD? Reason for Admission:?Respiratory failure ([facility]) ?? Reason for Consult:??Respiratory failure, necrotizing pneumonia,??possible [...] TPA/dornase per IR for loculations - Bronchoscopy risk control specialist for this afternoon, est 3:00pm, will follow [...] Danielle Avelar DO at 07/30/2022 9:55 PM DIRECTOR AIRPORT CT[facility] AIRPORT [facility] AIRPORT Associated attestation - Danielle Avelar DO - 07/30/2022 9:55 PM DIRECTOR AIRPORT [facility] Pulmonary/Critical Care Medicine Attending Note: I rounded with the housekeeper and residents. I interviewed and examined the patient, reviewedthe recent radiology images and labs, including ABGs. I reviewed and discussed the resident's note and I agree with the interval history, physical examination, assessment, and plan. Please see below any additional findings: Sputum with GNR. Bronchoscopy performed today. Chest tube output decreasing, IR managing. We will continue to follow DANIELLE AVELAR DO * Odalis BarneySMITH - 07/30/2022 1:11 PM CST OT Treatment Discharge Recommendation: home with assistance DME equipment recommendation: TBD Activity Recommendation for sergeant of corrections: up for all meals in chair, commode [...] not using at home. 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 Pt [...] Name: Ray Phillips Primary Language of learner: Israeli Patient was educated on precautions transfers ADLs balance bed mobility therapy plan safety. Education was completed one to one this date. Preference of learning new concepts one to one Barriers to education this date were none. Response to education this date needs follow up. [facility]PORT * Florencio Amaya MD - 07/30/2022 11:52 [...] nebulizer solution 3 mL 3 mL Nebulization [id number] Stevan Yo MD 3 mL at 07/30/22 1120 ??? lidocaine (XYLOCAINE) 1 % injection SOLN Code/Trauma/Sedation Med Raul Osuna MD 8 mL at 07/27/22 1016 ??? lidocaine-EPINEPHrine 2 %-1:855843 injection 20 mL 20 mL Intradermal Once [...] high likelihood for decompensation. FLORENCIO AMAYA MD [facility]PORT * Angela Dawkins RN - 07/30/2022 10:05 AM CSTSummary: D/C plans IDBR done with Dr Beatrice HARRIS MD to discuss POC/D/C plans. See notes below. 07/30/22 1005 Interdisciplinary Group Conference Team Members Present Physician;Case/Care management Barriers to Discharge Barriers Not Medically ready Not Medically ready follow up Pt to continue [facility] status-necrotizing pneumonia, chest tube, having Bronchoscopy today with cultues. CM following. PT/OT recs home with assist when able. CM following. [facility] AIRPORT * Patel Kelsey MD - 07/29/2022 12:53 [...] of lung cancer. requiring 8-10L nasal cannula. DESITNI ID andCT surgery as consulting services as [...] Patti Pineda MD at 07/29/2022 1:05 PM DIRECTOR AIRPORT CTOR AIRPORT [facility] AIRPORT Associated attestation - Patti Pineda MD - 07/29/2022 1:05 PM DIRECTOR AIRPORT Kenisha Brizuela MD, I rounded with nurses, [...] Q24H Tracy Yo MD Stopped at 07/28/22 2065 ??? ceFEPIme (MAXIPIME) 2 g in sodium [...] nebulizer solution 3 mL 3 mL Nebulization [id number] Stevan Yo MD 3 mL at 07/29/22 0832 ??? lidocaine (XYLOCAINE) 1 % injection SOLN Code/Trauma/Sedation Med Raul Osuna MD 8 mL at 07/27/22 1016 ??? lidocaine-EPINEPHrine 2 %-1:255262 injection 20 mL 20 mL Intradermal Once Nery Patrick MD ??? LORazepam (ATIVAN) tablet 1 mg 1 mg Oral BID PRN Tracy Yo MD 1 mg at 07/25/22 1659 ??? methylPREDNISolone sodium succinate (SOLU-Medrol) injection 62.5 mg 62.5 mg Intravenous Daily Patel Kelsey MD 62.5 mg at 07/29/22 0633 ??? morphine (MSIR) tablet 30 mg 30 mg Oral Q8H PRN Tracy Yo, MD 30 mg at 07/29/22 0644 ??? [...] [facility] ?? Pneumonia Acute hypoxic resp [...] high likelihood for decompensation. FLORENCIO AMAYA MD CTOR AIRPORT CT[facility] AIRPORT * Alfred Hill, PharmD, [facility] - 07/29/2022 11:04 AM CST Vancomycin [...] Pharmacy Consult per Dr. Srinath Hill, PharmD, [facility] Phone: [phone] 07/29/2022 11:04 AM CTOR AIRPORT * Patel Kelsey MD - 07/28/2022 11:00 AM CST [facility] PULMONOLOGY PROGRESS NOTE ?? Attending Provider:??Florencio Amaya [...] By: Can Klein DO, 07/27/2022 4:42 PM 11/25/22 1313 USE ECHOCARDIOGRAM Final result 07/27/22 1120 [...] Patti Pineda MD at 07/28/2022 1:59 PM DIRECTOR AIRPORT CTOR AIRPORT CT[facility] AIRPORT Associated attestation - Patti Pineda MD - 07/28/2022 1:59 PM DIRECTOR AIRPORT Kenisha Brizuela MD, I rounded with RT, [...] nebulizer solution 3 mL 3 mL Nebulization [id number] Stevan Yo MD 3 mL at 07/28/22 0811 ??? lidocaine (XYLOCAINE) 1 % injection SOLN Code/Trauma/Sedation Med Raul Osuna MD 8 mL at 07/27/22 1016 ??? lidocaine-EPINEPHrine 2 %-1:753651 injection 20 mL 20 mL Intradermal Once [...] high likelihood for decompensation. FLORENCIO AMAYA MD CTOR AIRPORT * Joann HawthorneD, [facility] - 07/28/2022 10:12 AM CST Vancomycin [...] Pharmacy Consult per Dr. Srinath Hill, PharmD, [facility] Phone: [phone] 07/28/2022 10:12 AM CTOR AIRPORT * Florencio Amaya MD - 07/27/2022 12:01 [...] nebulizer solution 3 mL 3 mL Nebulization [id number] Stevan Yo MD 3 mL at 07/27/22 1142 ??? lidocaine (XYLOCAINE) 1 % injection SOLN Code/Trauma/Sedation Med Raul Osuna MD 8 mL at 07/27/22 1016 ??? lidocaine-EPINEPHrine 2 %-1:727837 injection 20 mL 20 mL Intradermal Once [...] high likelihood for decompensation. FLORENCIO AMAYA MD CTOR AIRPORT CT[facility] AIRPORT * Patel Kelsey MD - 07/27/2022 11:41 [...] Instructions ??? sodium chloride 250 mL (07/27/22 9645) PRN: acetaminophen, albuterol sulfate HFA, cyclobenzaprine, fentaNYL, [...] Patti Pineda MD at 07/27/2022 3:23 PM DIRECTOR AIRPORT CTOR AIRPORT CT[facility] AIRPORT Associated attestation - Patti Pineda MD - 07/27/2022 3:23 PM DIRECTOR AIRPORT IKenisha MD, I rounded with RT, nurses, [...] tube placement Interventional Radiologist: Dr. Raul Osuna Food Stand Manager: RODNEY NOLASCO MD Anesthesia: IV conscious moderate [...] Raul Osuna MD at 07/27/2022 1:54 PM DIRECTOR AIRPORT CT[facility]PORT CT[facility] AIRPORT CT[facility] AIRPORT Associated attestation - Raul Osuna MD - 07/27/2022 1:54 PM DIRECTOR AIRPORT I was present during all critical and santos portions of the procedure(s) and immediately available [facility] services the entire duration. See [...] desires to proceed. RODNEY NOLASCO MD 07/27/2022 [facility]OR AIRPORT * Angela Dawkins RN - 07/27/2022 9:40 [...] pt. CM following for safe D/C plans. [facility]PORT * Michaelle Nielsen MD - 07/27/2022 8:59 [...] culture as soon as possible. Will follow. [facility]OR AIRPORT * Katelin Cuenca, OT - 07/27/2022 8:42 AM CSTSummary: OT EVAL OT Initial Evaluation Discharge Recommendation: home with assistance Activity Recommendation for sergeant of corrections: UP with 1 2ww GB 07/27/22 0600 [...] not using at home. 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 Pt [...] session Pt reports independence as functional status ASSISTANT PARALEGAL. Pt presents with pain, SOB, weakness, decreased [...] functional transfers in room and bathroom with [place] in order to increase independence with functional transfers. Pt will increase standing activity balance using for 3-5 minutes with independence order to increase independence with ADLs, functional transfers, and leisure activities. Pt will perform all LB dressing using AE PRN including clothing retrieval with Modified [place] in order to increase independence with ADLs. Pt will brush teeth, wash face, brush hair, and wash hands standing at sink with [place] in order to increase independence with ADLs. Pt will perform all toileting tasks including clothing management with [place] in order to increase independence with functional transfers and ADLs. Pt will bathe whole body and wash hair seated on shower chair with Modified [place] in order to increase independence with ADLs. Pt will perform supine to sit and sit to supine bed mobility with [place] in order to increaseindependence with ADLs, transitional [...] use of techniques during functional activities with [place] in order to increase overall activity tolerance [...] Name: Ray Phillips Primary Language of learner: Israeli Patient Spouse educated on precautions exercises transfers ADLs balance bed mobility equipment therapy plan gait safety. Education was completed one to one verbal hands-on this date. Preference of learning new concepts one to one verbal hands-on Barriers to education this date were pain fatigue. Response to education this date verbalized understanding needs follow up needs assistance. CT[facility] AIRPORT * Joann CaldwellD - 07/27/2022 8:37 AM CST Vancomycin Pharmacokinetic [...] Consult per Dr. Srinath Quiñones, PharmD Phone: [phone] 07/27/2022 8:37 AM CTOR AIRPORT CT[facility] AIRPORT * Angela Dawkins RN - 07/27/2022 8:35 AM CSTSummary: D/C plans Met with pt and ex /emergency contact, Maite Eldridge at bedside to assess/discuss CM needs/safe D/C plans. PCP Dr Jany CUEVAS. Meds [facility] Leonardo CUEVAS. States he lives with emergency contact, Maite Eldridge in 1 story home with four steps in/out of home. States he had Pfizer COVID vaccines x2, booster x1. [facility] does not have any DME or [...] Dressing Assistance No Behavior Oriented;Cooperative Communication Talks;Understands Israeli Socioeconomic Needs Caregiver Needed No At Risk [...] Patient expects to be discharged to: Home CTOR AIRPORT * Charly Morillo, PT - 07/27/2022 8:27 AM CST PT Initial Evaluation Discharge Recommendation: home with assistance Activity Recommendation for sergeant of corrections: Up with 1 GB 07/27/22 1200 Therapy [...] Inpatient PT Time Calculation PT Start Time 08 PT Stop Time 0842 PT Time Calculation [...] not using at home. 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 Pt [...] perform supine to/from sitting at EOB with [place] to improve mobility. Pt. will be able to perform sit to/from standing with modified independence using wheeled walker toimprove independence. Pt. will be able to ambulate 300 feet with Modified [place] using wheeled walker to help improve strength and functional independence. Pt. will be able to maintain dynamic sitting balance on soft surface with [place] to improve functional mobility. Pt. will be able to maintain static standing balance 5-10 minutes with Modified [place] using wheeled walker to improve independence. Pt. will be able to maintain dynamic standing balance during side-stepping L/R and marching with Modified [place] using wheeled walker to improve functional mobility. Education: Primary Learners Name: Ray Phillips Primary Language of learner: Israeli Patient was educated on precautions exercises transfers ADLs balance bed mobility equipment therapy plan gait safety. Education was completed verbal hands-on demonstration this date. Preference of learning new concepts verbal hands-on demonstration Barriers to education this date were pain. Response to education this date needs follow up. CTOR AIRPORT * Joann HartleyD - 07/26/2022 3:08 PM [...] Consult per Dr. Srinath STEVE, PharmD Phone: [phone] 07/26/2022 3:08 PM CTOR AIRPORT * Florencio Amaya MD - 07/26/2022 10:12 [...] mg 650 mg Oral Q4H PRN Tracy oY MD ??? albuterol sulfate HFA 108 (90 [...] nebulizer solution 3 mL 3 mL Nebulization [id number] Stevan Yo MD 3 mL at 07/26/22 0745 ??? lidocaine-EPINEPHrine 2 %-1:787133 injection 20 mL 20 mL Intradermal Once [...] high likelihood for decompensation. FLORENCIO AMAYA MD CT[facility] AIRPORT * Nan Gomez RN - 07/26/2022 2:31 [...] potential discharge needs. Outcome: Met This Shift CTOR AIRPORT * Ann Hammond NP - 07/26/2022 2:00 AM CST Pt seen at bedside, cta reviewed, Saturations 94% on 14l HFNC, Viji hgb 7.5 Does not appear dyspneic at rest, Repeat labs/abg ordered, D/w intnsivist Will need IR consult CT surgery consult in am- low threshold to transfer to ICU for hemodynamic instability or worsening resp status CTOR AIRPORT * Joann SalterD - 07/25/2022 5:55 PM CST Vancomycin Pharmacokinetic [...] Consult per Dr. Srinath IRBY, PharmD Phone: [phone] 07/25/2022 5:55 PM [facility] AIRPORT documented in this encounter H&P Notes * [...] during recuperation were discussed with the patient/family/personal promotional representative. Reasonable alternatives to the patient's proposed procedure/surgery including benefits, risks, and side effects related to the alternatives and the risks related to not receiving the proposed care were also discussed with the patient/family/personal promotional representative. Questions were answered and the patient /family/personal promotional representative verbalized understanding and desires to proceed. Cosigned by Ross Blackburn MD at 08/03/2022 11:37 AM DIRECTOR AIRPORT CTOR AIRPORT [facility] AIRPORT Source Note - Raquel Wetzel MD - 07/26/2022 11:38 AM DIRECTOR AIRPORT [facility] Thoracic Surgery Consult Reason for consult: [...] was not improvingso he was transferred to [facility] were CT of the chest was [...] Ross Blackburn MD at 07/27/2022 6:52 AM DIRECTOR AIRPORT CTOR AIRPORT CT[facility] AIRPORT * Tracy Yo MD - 07/25/2022 1:55 PM CST Attending Provider: Tracy Yo,* PCP: GRACIELA LEIGH MD Ray Phillips is an 67-year-old male. Reason for Admission: Respiratory failure ([facility]) HPI: 67-year-old male with past medical history significant for chronic back pain due to back trauma 20 years ago, anxiety/depression, tobacco abuse who presents to [facility] with complaint of shortness of breath. He was diagnosed with pneumonia and was being treated with antibiotics but his symptoms reportedly did not improve. His chest CT showed diffuse pulmonary disease consistent with pneumonia and a loculated right pleural effusion. Upon arrival to [facility], patient reports intermittent shortness of breath. He [...] Mechanical DVT prophylaxis Tracy Yo MD 07/25/2022 [facility] AIRPORT documented in this encounter Procedure Notes * [...] sent to cytology and microbiology Kenisha Pineda [facility] AIRPORT documented in this encounter Consult Notes * [...] was not improvingso he was transferred to [facility] were CT of the chest was [...] Ross Blackburn MD at 07/27/2022 6:52 AM DIRECTOR AIRPORT CTOR AIRPORT CT[facility] AIRPORT * Michaelle Nielsen MD - 07/26/2022 11:23 AM CSTSummary: [facility]I ID Consult Note [facility] INFECTIOUS DISEASE CONSULT NOTE Consulting Provider: Attending Provider: Florencio Amaya MD PCP: GRACIELA LEIGH MD Reason for Consultation: Loculated pleural effusions, Pneumonia History of Present Illness: Ray Phillips is a 67-year-old male with medical history of chronic tobacco use who was transferred from [facility] near [place] for treatment resistant pneumonia and loculated pleural effusions. Prior to hospitalization, patient had 1 week of daily hemoptysis, shortness of breath, and right sided lower chest pain. Reports the hemoptysis was about the size of a silver dollar. He had hemoptysis about one year ago, but it resolved spontaneously without medical intervention. He went to [facility] where he was diagnosed with pneumonia. He was started on antibiotics. Further imaging was concerning for loculated pleural effusions and possible malignancy according the patient. He was transferred to [facility] for further care. He was [...] Pending Antimicrobial Regimen Unknown Abx regiment at [facility] Vancomycin IV 1.25g every 24h(07/25 - present) Cefepime IV 2g every 12h(07/25 - present) Azithromycin IV 500mg every 24 hours (07/25 - present) ASSESSMENT AND PLAN Ray Phillips is a 67-year-old male with medical history of chronic tobacco use who was transferred from [facility] near [place] for treatment resistant pneumonia and loculated pleural [...] studies independently reviewed, agree with the above. CTOR AIRPORT CTOR AIRPORT CTOR AIRPORT * Patel Kelsey MD - 07/26/2022 11:12 AM CST [facility] PULMONOLOGY CONSULT NOTE Attending Provider: Florencio Amaya MD PCP: GRACIELA LEIGH MD Reason for Admission: Respiratory failure ([facility]) Reason for Consult: Respiratory failure, necrotizing pneumonia, [...] CT surgery as consulting services as well. aRy states he had chronic dull right sided [...] this time frame as well. Presented to [facility] last Saturday and started on antibiotics, CT imaging done and showed what was noted above. Transferred to [facility] for further treatment. He is currently on antibiotics and steroids. He has history of smoking 1ppd for past 50 years. Never had lung cancer screening in past. Follows in [place], [place]. He quit smoking 1.5 weeks ago. He has brother with lung cancer. His mother and two sisters also had unknown cancer type. 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 He states he wore protective gear at that time. Travel to [place] in past 6 months, no other travel [...] Patti Pineda MD at 07/26/2022 12:41 PM DIRECTOR AIRPORT CTOR AIRPORT CTOR AIRPORT Associated attestation - Patti Pineda MD - 07/26/2022 12:41 PM DIRECTOR AIRPORT IKenisha MD, I was asked to see [...] arm scar from brown recluse spider bite. CTOR AIRPORT * Charlene Crow RN - 07/25/2022 6:44 [...] Will speak with nurse about further options. CTOR AIRPORT documented in this encounter OR Notes * Brief Op Note - JOSEPH Whitehead - 08/02/2022 9:28 AM CST HS Brief Op HSHSTHORACOSCOPY (VATS) WITH RIGHT DECORICATION Procedure Note Ray Phillips 08/02/2022 0730 Procedure(s) (LRB): THORACOSCOPY (VATS) WITH RIGHT DECORICATION (Right) Surgeon(s): Ross Blackburn MD Food Stand Manager: Financial Planning Adviser: JOSEPH Whitehead Anesthesia: General Pre-Op Diagnosis: PLEURAL [...] Ross Blackburn MD at 08/03/2022 11:37 AM DIRECTOR AIRPORT CTOR AIRPORT CTOR AIRPORT * Op Note - Ross Blackburn MD - 08/02/2022 12:00 AM CST PREOPERATIVE DIAGNOSES: Trapped lung, empyema, loculated pleural effusion, pneumonia. POSTOPERATIVE DIAGNOSES: Trapped lung, empyema, loculated pleural effusion, pneumonia. PROCEDURES: Bronchoscopy, right thoracoscopy, decortication of the lung, multilevel intercostal nerve block. SURGEON: Ross Blackburn MD UROLOGIC NURSE: JOSEPH Flower TYPE OF ANESTHESIA: General. INDICATIONS: [...] to create a multilevel intercostal nerve block. [id number] chest tube was placed and the lung was reexpanded. The trocar sites injected with 0.25% Marcaine and closed including subcuticular skin stitches. Sterile dressings applied. Tolerated well without complication. Noted at completion of procedure, all counts were correct. #[id number] /REG/YAYA/CELESTINA CTOR AIRPORT * Brief Op Note - Raul Osuna MD - 07/27/2022 12:11 PM CST PROCEDURE: CT-guided right thoracostomy tube placement Indication: Necrotizing pneumonia with loculated hydropneumothorax Physicians: Raul Osuna M.D. (attending); Rodney Nolasco M.D. (resident) Following informed consent, including discussion of procedural risks, the patient was place in the left lateral decubitus position on the CT table and Andale protocol was observed to verify correct patient, [...] CT. The tract was dilated to 12 [place]. Duringdilation, there was temporary retraction of the [...] will be monitored to determine further management. CTOR AIRPORT documented in this encounter Plan of Treatment Pending Results Name Type Priority Associated Diagnoses Date /Time USV VAST TEAM MIDLINE INSERT >5YR US VASC STAT 07/25/2022 5:18 PM DIRECTOR AIRPORT Scheduled Orders Name Type Priority Associated Diagnoses [...] transitions and discharge planning Lifestyle Angela Pena, LOGISTICS LEAD documented as of this encounter Procedures Procedure Name Priority Date/Time Associated Diagnosis Comments XR CHEST PA OR AP 1V Today 08/08/2022 5:37 AM DIRECTOR AIRPORT COMPREHENSIVE METABOLIC PANEL Routine 08/08/2022 2:22 AM DIRECTOR AIRPORT CBC W/DIFF AUTOMATED Routine 08/08/2022 2:22 AM DIRECTOR AIRPORT HEMOGLOBIN AND HEMATOCRIT STAT 08/07/2022 10:12 AM DIRECTOR AIRPORT XR CHEST PA OR AP 1V Today 08/07/2022 5:57 AM DIRECTOR AIRPORT HOME O2 EVAL Routine 08/06/2022 12:48 PM DIRECTOR AIRPORT XR CHEST PA OR AP 1V Today 08/06/2022 5:28 AM DIRECTOR AIRPORT COMPREHENSIVE METABOLIC PANEL Routine 08/06/2022 4:27 AM DIRECTOR AIRPORT CBC W/DIFF AUTOMATED Routine 08/06/2022 4:27 AM DIRECTOR AIRPORT VANCOMYCIN TIMED 08/06/2022 4:27 AM DIRECTOR AIRPORT HOME O2 EVAL Routine 08/05/2022 2:41 PM DIRECTOR AIRPORT TYPE & SCREEN Routine 08/05/2022 10:53 AM DIRECTOR AIRPORT XR CHEST PA OR AP 1V Today 08/05/2022 5:52 AM DIRECTOR AIRPORT COMPREHENSIVE METABOLIC PANEL Routine 08/05/2022 2:11 AM DIRECTOR AIRPORT CBC W/DIFF AUTOMATED Routine 08/05/2022 2:[address] CHEST WO CON Today 08/04/2022 3:22 PM DIRECTOR AIRPORT XR CHEST PA OR AP 1V Today 08/04/2022 5:27 AM DIRECTOR AIRPORT COMPREHENSIVE METABOLIC PANEL Routine 08/04/2022 2:34 AM DIRECTOR AIRPORT CBC W/DIFF AUTOMATED Routine 08/04/2022 2:34 AM DIRECTOR AIRPORT XR CHEST PA OR AP 1V Today 08/03/2022 5:50 AM DIRECTOR AIRPORT COMPREHENSIVE METABOLIC PANEL Routine 08/03/2022 2:22 AM DIRECTOR AIRPORT CBC W/DIFF AUTOMATED Routine 08/03/2022 2:22 AM DIRECTOR AIRPORT XR CHEST PORTABLE STAT 08/02/2022 9:5 8 AM DIRECTOR AIRPORT CULTURE, TISSUE W/GRAM STAIN Nurse Collected Priority 08/02/2022 8:38 AM DIRECTOR AIRPORT CULTURE, FUNGUS Nurse Collected Priority 08/02/2022 8:38 AM DIRECTOR AIRPORT CULTURE TB/AFB OTHER Routine 08/02/2022 8:38 AM DIRECTOR AIRPORT HC SMEAR ACID FAST/FLUOR-90 Routine 08/02/2022 8:38 AM DIRECTOR AIRPORT CULTURE, ANAEROBIC Nurse Collected Priority 08/02/2022 8:38 AM DIRECTOR AIRPORT PATHOLOGY Routine 08/02/2022 7:03 AM DIRECTOR AIRPORT TYPE & SCREEN Routine 08/01/2022 11:11 PM DIRECTOR AIRPORT BMP WITHOUT GLUCOSE TIMED 08/01/2022 1 1:31 AM DIRECTOR AIRPORT VANCOMYCIN TIMED 08/01/2022 11:31 AM DIRECTOR AIRPORT COMPREHENSIVE METABOLIC PANEL Routine 08/01/2022 2:42 AM DIRECTOR AIRPORT CBC W/DIFF AUTOMATED Routine 08/01/2022 2:42 AM DIRECTOR AIRPORT COMPREHENSIVE METABOLIC PANEL Routine 07/31/2022 11:[address] CHEST WO CON JAC 07/31/2022 10:22 AM DIRECTOR AIRPORT CBC W/DIFF AUTOMATED Routine 07/31/2022 9:41 AM DIRECTOR AIRPORT XR CHEST PORTABLE Routine 07/31/2022 6:0 0 AM DIRECTOR AIRPORT BRONCHOSCOPY Routine 07/30/2022 4:15 PM DIRECTOR AIRPORT CULTURE RESPIRATORY W/ GRAM STAIN TIMED 07/30/2022 3:30 PM DIRECTOR AIRPORT CULTURE, QUANTITATIVE W/ GRAM STAIN TIMED 07/30/2022 3:30 PM DIRECTOR AIRPORT CULTURE VIRAL RESPIRATORY RAPID Routine 07/30/2022 3:30 PM DIRECTOR AIRPORT CULTURE, FUNGUS TIMED 07/30/2022 3:30 PM DIRECTOR AIRPORT CULTURE HERPES Routine 07/30/2022 3:30 PM DIRECTOR AIRPORT CULTURE CMV Routine 07/30/2022 3:30 PM DIRECTOR AIRPORT CULTURE TB/AFB OTHER Routine 07/30/2022 3:30 PM DIRECTOR AIRPORT HC SMEAR ACID FAST/FLUOR-90 Routine 07/30/2022 3:30 PM DIRECTOR AIRPORT BRONCHOSCOPY DIAGNOSTIC W/WASH 07/30/2022 2:45 PM DIRECTOR AIRPORT PNEUMONIA Case Notes OC #1 07/30/22 MOVED FROM 07/[address] [facility]ORMAN [facility] 07/26 @1548 SD BRONCHOSCOPY 07/30/2022 2:41 PM DIRECTOR AIRPORT VANCOMYCIN TIMED 07/30/2022 6:17 AM DIRECTOR AIRPORT XR CHEST PORTABLE Routine 07/30/2022 5:2 7 AM DIRECTOR AIRPORT CYTOLOGY GENERIC Routine 07/30/2022 12:0 0 AM DIRECTOR AIRPORT CYTOLOGY GENERIC Routine 07/30/2022 12:0 0 AM DIRECTOR AIRPORT CULTURE RESPIRATORY W/ GRAM STAIN Nurse Collected Priority 07/28/2022 2:25 PM DIRECTOR AIRPORT CULTURE, FUNGUS Nurse Collected Priority 07/28/2022 2:25 PM DIRECTOR AIRPORT US ABD LIMITED Today 07/28/2022 11:39 AM DIRECTOR AIRPORT BASIC METABOLIC PANEL Routine 07/28/2022 7:03 AM DIRECTOR AIRPORT CBC W/DIFF AUTOMATED Routine 07/28/2022 7:03 AM DIRECTOR AIRPORT VANCOMYCIN TIMED 07/28/2022 7:03 AM DIRECTOR AIRPORT XR CHEST PORTABLE JAC 07/28/2022 12: 43 AM DIRECTOR AIRPORT XR CHEST PORTABLE JAC 07/27/2022 4:2 2 PM DIRECTOR AIRPORT USE ECHOCARDIOGRAM Today 07/27/2022 1: 13 PM DIRECTOR AIRPORT IR MIDLINE PLACEMENT GREATER 3YR STAT 07/27/2022 11:[address] GD CHEST TUBE INSERT RT Today 07/27/2022 10:57 AM DIRECTOR AIRPORT LDH BODY FLUID Nurse Collected Priority 07/27/2022 10:30 AM DIRECTOR AIRPORT PROTEIN TOTAL FLUID Nurse Collected Priority 07/27/2022 10:30 AM DIRECTOR AIRPORT HC BODY FLUID CULTURE Routine 07/27/2022 10:30 AM DIRECTOR AIRPORT CULTURE, ANAEROBIC Routine 07/27/2022 10 :30 AM DIRECTOR AIRPORT CELL COUNT W/ DIFF BODY FLUID Nurse Collected Priority 07/27/2022 10:30 AM DIRECTOR AIRPORT TRANSFUSE RED BLOOD CELLS Routine 07/27/2022 4:45 AM DIRECTOR AIRPORT BMP WITHOUT GLUCOSE Routine 07/27/2022 2 :40 AM DIRECTOR AIRPORT CBC W/DIFF AUTOMATED Routine 07/27/2022 2:40 AM DIRECTOR AIRPORT HISTOPLASMA ANTIBODY PANEL Routine 07/26/2022 12:55 PM DIRECTOR AIRPORT PROCALCITONIN (PCT) Routine 07/26/2022 1 2:55 PM DIRECTOR AIRPORT HEMOGLOBIN AND HEMATOCRIT TIMED 07/26/2022 12:55 PM DIRECTOR AIRPORT BLASTOMYCES AB PANEL CF ID Routine 07/26/2022 12:55 PM DIRECTOR AIRPORT HAPTOGLOBIN, QUANT Routine 07/26/2022 9: 04 AM DIRECTOR AIRPORT BLOOD SMEAR INTERPRETATION BY Routine 07/26/2022 9:04 AM DIRECTOR AIRPORT XR CHEST PORTABLE JAC 07/26/2022 6:5 5 AM DIRECTOR AIRPORT SED RATE, ERYTHROCYTE (ESR) Routine 07/26/2022 2:38 AM DIRECTOR AIRPORT COMPREHENSIVE METABOLIC PANEL Routine 07/26/2022 2:38 AM DIRECTOR AIRPORT LDH, LACTATE DEHYDROGENASE Routine 07/26/2022 2:38 AM DIRECTOR AIRPORT C-REACTIVE PROTEIN Routine 07/26/2022 2: 38 AM DIRECTOR AIRPORT BLOOD GAS, ARTERIAL LAB STAT 07/26/2022 2:38 AM DIRECTOR AIRPORT CBC W/DIFF AUTOMATED STAT 07/26/2022 2:38 AM DIRECTOR AIRPORT CTA CHEST+ABD+PEL STAT 07/26/2022 12: 32 AM DIRECTOR AIRPORT HEMOGLOBIN AND HEMATOCRIT TIMED 07/25/2022 8:56 PM DIRECTOR AIRPORT RETICULOCYTE CT, AUTO Routine 07/25/2022 8:56 PM DIRECTOR AIRPORT HC INFECT AGENT DETECT OPTICAL Nurse Collected Priority 07/25/2022 8:31 PM DIRECTOR AIRPORT LEGIONELLA AG URINE Nurse Collected Priority 07/25/2022 8:31 PM DIRECTOR AIRPORT HIV 1 ANTIGEN(S), WITH HIV-1 AND HIV-2 ANTIBODIES Routine 07/25/2022 5:23 PM DIRECTOR AIRPORT HEMOGLOBIN AND HEMATOCRIT STAT 07/25/2022 5:23 PM DIRECTOR AIRPORT HC MYCOPLASMA AB-90 Routine 07/25/2022 5:23 PM DIRECTOR AIRPORT TYPE & SCREEN STAT 07/25/2022 5:23 PM DIRECTOR AIRPORT PROTHROMBIN TIME, VENOUS Routine 07/25/2022 5:23 PM DIRECTOR AIRPORT LDH, LACTATE DEHYDROGENASE Routine 07/25/2022 5:23 PM DIRECTOR AIRPORT BLOOD SMEAR INTERPRETATION BY MD Routine 07/25/2022 5:23 PM DIRECTOR AIRPORT CULTURE, BACTERIA, BLOOD Routine 07/25/2022 2:17 PM DIRECTOR AIRPORT COMPREHENSIVE METABOLIC PANEL STAT 07/25/2022 2:16 PM DIRECTOR AIRPORT CULTURE, BACTERIA, BLOOD Routine 07/25/2022 2:16 PM DIRECTOR AIRPORT CBC W/DIFF AUTOMATED STAT 07/25/2022 2:16 PM DIRECTOR AIRPORT PATHOLOGY Routine 07/25/2022 12:00 AM DIRECTOR AIRPORT documented in this encounter Results * XR CHEST PA OR AP 1V (08/08/2022 5:37 AM DIRECTOR AIRPORT) Anatomical Region Laterality Modality Chest Radiographic Jasmina ging 08/08/2022 6:12 AM DIRECTOR AIRPORT Impressions 08/08/2022 6:15 AM DIRECTOR AIRPORT Impression: 1. ??Lines and tubes as described. 2. ??Persistent, but improving atelectasis in the lung bases. ??Scant effusions. Referred By: PROVIDER NON-STAFF Interpreted By: Antonio Lockett MD, 08/08/2022 6:12 AM Narrative 08/08/2022 6:15 AM DIRECTOR AIRPORT Date: 08/08/2022 5:34 AM Exam: XR CHEST [...] (ABNORMAL) COMPREHENSIVE METABOLIC PANEL (08/08/2022 2:22 AM DIRECTOR AIRPORT) SODIUM S/P/B 138 136 - 145 MMOL/L 08/08/2022 3:09 AM [facility] POTASSIUM S/P/B 3.5 3.5 - 5.1 MMOL/L 08/08/2022 3:09 AM [facility] CHLORIDE S/P/B 105 98 - 107 MMOL/L 08/08/2022 3:09 AM [facility] CO2 28.9 21.0 - 32.0 MMOL/L 08/08/2022 3:09 AM [facility] GLUCOSE 123(H) 74 - 106 MG/DL 08/08/2022 3:09 AM [facility] BUN 9 7 - 18 MG/DL 08/08/2022 3:09 AM [facility] CREATININE S/P/B 0.66(L) 0.70 - 1.30 MG/DL 08/08/2022 3:09 AM [facility] CALCIUM S/P/B 8.1(L) 8.5 - 10.1 MG/DL 08/08/2022 3:09 AM [facility] BILIRUBIN TOTAL S/P/B 0.5 0.2 - 1.0 MG/DL 08/08/2022 3:09 AM [facility] ALKALINE PHOSPHATASE S/P/B 47 45 - 115 U/L 08/08/2022 3:09 AM [facility] AST 11(L) 15 - 37 U/L 08/08/2022 3:09 AM [facility] ALT 8(L) 16 - 61 U/L 08/08/2022 3:09 AM [facility] TOTAL PROTEIN S/P/B 5.2(L) 6.4 - 8.2 G/DL 08/08/2022 3:09 AM [facility] ALBUMIN S/P/B 1.7(L) 3.4 - 5.0 G/DL 08/08/2022 3:09 AM [facility] ANION GAP 4.1(L) 5.0 - 15.0 MMOL/L 08/08/2022 3:09 AM [facility] OSMOLALITY (CALC) 286 MOSM/KG 022 3:09 AM [facility] Comment:REFERENCE RANGE NOT ESTABLISHED GFR ESTIMATE >90 >90 ML/MIN/1. 73 M2 08/08/2022 3:09 AM [facility] GFR NOTES GFR REFERENCE S: 08/08/2022 3:09 AM [facility] Comment: THE ESTIMATED GFR IS [...] FAILURE: <15 ml/min/1.73 m2 08/08/2022 2:22 AM DIRECTOR AIRPORT Lanre Winter MD LABORATORY Final Result [facility] [address] [place] [address], [id number] * (ABNORMAL) CBC W/DIFF AUTOMATED (08/08/2022 2:22 AM DIRECTOR AIRPORT) WBC 3.7(L) 4.0 - 10.8 x10'3/uL 08/08/2022 2:32 AM DIRECTOR AIRPORT [facility] RBC 2.33(L) 4.50 - 6.10 x10'6/uL 08/08/2022 2:32 AM DIRECTOR AIRPORT [facility] HGB 7.4(L) 13.0 - 18.0 G/DL 08/08/2022 2:32 AM DIRECTOR AIRPORT [facility] HCT 23.7(L) 37.0 - 52.0 % 08/08/2022 2:32 AM DIRECTOR AIRPORT [facility] MCV 101.7(H) 78.0 - 100.0 FL 08/08/2022 2:32 AM DIRECTOR AIRPORT [facility] MCH 31.8(H) 27.0 - 31.0 PG 08/08/2022 2:32 AM DIRECTOR AIRPORT [facility] MCHC 31.2(L) 33.0 - 36.0 G/DL 08/08/2022 2:32 AM [facility] RDW 14.9(H) 11.5 - 14.5 % 08/08/2022 2:32 AM [facility] PLT 186 150 - 350 x10'3/uL 08/08/2022 2:32 AM [facility] MPV 10.2 7.4 - 10.4 FL 08/08/2022 2:32 AM [facility] ABS. NEUTROPHILS 2.28 1.60 - 8.30 x10'3/uL 08/08/2022 2:32 AM [facility] ABS. LYMPHOCYTES 0.91 0.80 - 4.70 x10'3/uL 08/08/2022 2:32 AM [facility] ABS. MONOCYTES 0.40 0.00 - 1.50 x10'3/uL 08/08/2022 2:32 AM [facility] ABS. EOSINOPHILS 0.10 0.00 - 0.40 x10'3/uL 08/08/2022 2:32 AM [facility] ABS. BASOPHILS 0.01 0.00 - 0.20 x10'3/uL 08/08/2022 2:32 AM [facility] ABS. IMMATURE GRANULOCYTES 0.02 0.00 - 0.03 x10'3/uL 08/08/2022 2:32 AM [facility] ABS. NUCLEATED RBC'S 0.00 0.0 x10'3/uL 08/08/2022 2:32 AM [facility] 08/08/2022 2:22 AM DIRECTOR AIRPORT Lanre Winter MD LABORATORY Final Result [facility] [address] [place] [address], [id number] * (ABNORMAL) HEMOGLOBIN AND HEMATOCRIT (08/07/2022 10:12 AM DIRECTOR AIRPORT) HGB 7.7(L) 13.0 - 18.0 G/DL 08/07/2022 10:27 AM DIRECTOR AIRPORT [facility] HCT 23.7(L) 37.0 - 52.0 % 08/07/2022 10:27 AM DIRECTOR AIRPORT [facility] 08/07/2022 10:1 2 AM DIRECTOR AIRPORT Lanre Winter MD LABORATORY Final Result [facility] [address] [place] [address], [id number] * XR CHEST PA OR AP 1V (08/07/2022 5:57 AM DIRECTOR AIRPORT) Anatomical Region Laterality Modality Chest Radiographic Jasmina ging 08/07/2022 6:38 AM DIRECTOR AIRPORT Impressions 08/07/2022 6:41 AM DIRECTOR AIRPORT IMPRESSION: 1. Persistent bilateral pneumonia with persistent infiltrates in the lower lobes with mild bibasilar pleural effusions, again right larger than left. 2. ??Suspect a small retrocardiac hiatal hernia. Referred By: PROVIDER NON-STAFF Interpreted By: Karine Sher MD, 08/07/2022 6:38 AM Narrative 08/07/2022 6:41 AM DIRECTOR AIRPORT EXAMINATION: XR Portable CXR, 1 View INDICATION: [...] PA OR AP 1V (08/06/2022 5:28 AM DIRECTOR AIRPORT) Anatomical Region Laterality Modality Chest Radiographic Jasmina ging 08/06/2022 6:29 AM DIRECTOR AIRPORT Impressions 08/06/2022 6:32 AM DIRECTOR AIRPORT IMPRESSION: Stable chest. Referred By: PROVIDER NON-STAFF Interpreted By: Wali Gary MD, 08/06/2022 6:29 AM Narrative 08/06/2022 6:32 AM DIRECTOR AIRPORT Examination: XR CHEST PA OR AP 1V [...] * Vancomycin Random Level (08/06/2022 4:27 AM DIRECTOR AIRPORT) VANCOMYCIN RANDOM 15.7 MCG/ML 08/06/2022 5:08 AM DIRECTOR AIRPORT [facility] Comment:REFERENCE RANGE NOT ESTABLISHED 08/06/2022 4:27 AM DIRECTOR AIRPORT Lanre Winter MD LABORATORY Final Result [facility] [address] [place] [address], [phone] * (ABNORMAL) COMPREHENSIVE METABOLIC PANEL (08/06/2022 4:27 AM DIRECTOR AIRPORT) SODIUM S/P/B 140 136 - 145 MMOL/L 08/06/2022 5:10 AM [facility] POTASSIUM S/P/B 3.8 3.5 - 5.1 MMOL/L 08/06/2022 5:10 AM [facility] CHLORIDE S/P/B 107 98 - 107 MMOL/L 08/06/2022 5:10 AM [facility] CO2 27.3 21.0 - 32.0 MMOL/L 08/06/2022 5:10 AM [facility] GLUCOSE 87 74 - 106 MG/DL 08/06/2022 5:10 AM [facility] BUN 8 7 - 18 MG/DL 08/06/2022 5:10 AM [facility] CREATININE S/P/B 0.61(L) 0.70 - 1.30 MG/DL 08/06/2022 5:10 AM [facility] CALCIUM S/P/B 8.0(L) 8.5 - 10.1 MG/DL 08/06/2022 5:10 AM [facility] BILIRUBIN TOTAL S/P/B 0.3 0.2 - 1.0 MG/DL 08/06/2022 5:10 AM [facility] ALKALINE PHOSPHATASE S/P/B 43(L) 45 - 115 U/L 08/06/2022 5:10 AM [facility] AST 9(L) 15 - 37 U/L 08/06/2022 5:10 AM [facility] ALT 8(L) 16 - 61 U/L 08/06/2022 5:10 AM [facility] TOTAL PROTEIN S/P/B 5.2(L) 6.4 - 8.2 G/DL 08/06/2022 5:10 AM [facility] ALBUMIN S/P/B 1.6(L) 3.4 - 5.0 G/DL 08/06/2022 5:10 AM [facility] ANION GAP 5.7 5.0 - 15.0 MMOL/L 08/06/2022 5:10 AM DIRECTOR AIRPORT [facility] OSMOLALITY (CALC) 288 MOSM/KG 022 5:10 AM [facility] Comment:REFERENCE RANGE NOT ESTABLISHED GFR ESTIMATE >90 >90 ML/MIN/1. 73 M2 08/06/2022 5:10 AM [facility] GFR NOTES GFR REFERENCE S: 08/06/2022 5:10 AM [facility] Comment: THE ESTIMATED GFR IS [...] FAILURE: <15 ml/min/1.73 m2 08/06/2022 4:27 AM DIRECTOR AIRPORT Lanre Winter MD LABORATORY Final Result [facility] [address] [place] [address], [phone] * (ABNORMAL) CBC W/DIFF AUTOMATED (08/06/2022 4:27 AM DIRECTOR AIRPORT) WBC 5.1 4.0 - 10.8 x10'3/uL 08/06/2022 4:45 AM DIRECTOR AIRPORT [facility] RBC 2.32(L) 4.50 - 6.10 x10'6/uL 08/06/2022 4:45 AM [facility] HGB 7.6(L) 13.0 - 18.0 G/DL 08/06/2022 4:45 AM [facility] HCT 24.1(L) 37.0 - 52.0 % 08/06/2022 4:45 AM [facility] MCV 103.9(H) 78.0 - 100.0 FL 08/06/2022 4:45 AM [facility] MCH 32.8(H) 27.0 - 31.0 PG 08/06/2022 4:45 AM [facility] MCHC 31.5(L) 33.0 - 36.0 G/DL 08/06/2022 4:45 AM [facility] RDW 15.0(H) 11.5 - 14.5 % 08/06/2022 4:45 AM [facility] PLT 207 150 - 350 x10'3/uL 08/06/2022 4:45 AM [facility] MPV 10.4 7.4 - 10.4 FL 08/06/2022 4:45 AM [facility] ABS. NEUTROPHILS 3.59 1.60 - 8.30 x10'3/uL 08/06/2022 4:45 AM [facility] ABS. LYMPHOCYTES 0.90 0.80 - 4.70 x10'3/uL 08/06/2022 4:45 AM [facility] ABS. MONOCYTES 0.45 0.00 - 1.50 x10'3/uL 08/06/2022 4:45 AM [facility] ABS. EOSINOPHILS 0.09 0.00 - 0.40 x10'3/uL 08/06/2022 4:45 AM [facility] ABS. BASOPHILS 0.01 0.00 - 0.20 x10'3/uL 08/06/2022 4:45 AM [facility] ABS. IMMATURE GRANULOCYTES 0.03 0.00 - 0.03 x10'3/uL 08/06/2022 4:45 AM [facility] ABS. NUCLEATED RBC'S 0.00 0.0 x10'3/uL 08/06/2022 4:45 AM DIRECTOR AIRPORT [facility] 08/06/2022 4:27 AM DIRECTOR AIRPORT us Lanre Winter MD LABORATORY Final Result Performing Organization Address [facility] Co de Phone Number [facility] [address] [place] [address], [id number] * TYPE & SCREEN (08/05/2022 10:53 AM DIRECTOR AIRPORT) ABO/RH B POSITIVE 08/05/2022 12:05 PM DIRECTOR AIRPORT [facility] ANTIBODY SCREEN NEGATIVE 08/05/2022 12:05 PM DIRECTOR AIRPORT [facility] SAMPLE EXPIRATION 08/08/2022,2 359 08/05/2022 11:06 AM DIRECTOR AIRPORT [facility] 08/05/2022 10:5 3 AM DIRECTOR AIRPORT us Lanre Winter MD BLOOD BANK TEST ORDERABLES Fin al Result Performing Organization Address [facility] de Phone Number [facility] [address] [place] [address], [phone] * XR CHEST PA OR AP 1V (08/05/2022 5:52 AM DIRECTOR AIRPORT) Anatomical Region Laterality Modality Chest Radiographic Jasmina ging 08/05/2022 7:35 AM DIRECTOR AIRPORT Impressions 08/05/2022 7:37 AM DIRECTOR AIRPORT IMPRESSION: Unchanged appearance of the chest when compared with the radiograph exam from yesterday. Ordered By: EDVIN POLLACK Interpreted By: Antonio Hill MD, 08/05/2022 7:35 AM Narrative 08/05/2022 7:37 AM DIRECTOR AIRPORT Examination: XR CHEST PA OR AP 1V, [...] (ABNORMAL) COMPREHENSIVE METABOLIC PANEL (08/05/2022 2:11 AM DIRECTOR AIRPORT) SODIUM S/P/B 136 136 - 145 MMOL/L 08/05/2022 3:20 AM DIRECTOR AIRPORT [facility] POTASSIUM S/P/B 3.4(L) 3.5 - 5.1 MMOL/L 08/05/2022 3:20 AM DIRECTOR AIRPORT [facility] CHLORIDE S/P/B 104 98 - 107 MMOL/L 08/05/2022 3:20 AM [facility] CO2 27.9 21.0 - 32.0 MMOL/L 08/05/2022 3:20 AM [facility] GLUCOSE 114(H) 74 - 106 MG/DL 08/05/2022 3:20 AM [facility] BUN 11 7 - 18 MG/DL 08/05/2022 3:20 AM [facility] CREATININE S/P/B 0.58(L) 0.70 - 1.30 MG/DL 08/05/2022 3:20 AM [facility] CALCIUM S/P/B 7.9(L) 8.5 - 10.1 MG/DL 08/05/2022 3:20 AM [facility] BILIRUBIN TOTAL S/P/B 0.4 0.2 - 1.0 MG/DL 08/05/2022 3:20 AM [facility] ALKALINE PHOSPHATASE S/P/B 39(L) 45 - 115 U/L 08/05/2022 3:20 AM [facility] AST 8(L) 15 - 37 U/L 08/05/2022 3:20 AM [facility] ALT 8(L) 16 - 61 U/L 08/05/2022 3:20 AM [facility] TOTAL PROTEIN S/P/B 4.9(L) 6.4 - 8.2 G/DL 08/05/2022 3:20 AM [facility] ALBUMIN S/P/B 1.5(L) 3.4 - 5.0 G/DL 08/05/2022 3:20 AM [facility] ANION GAP 4.1(L) 5.0 - 15.0 MMOL/L 08/05/2022 3:20 AM [facility] OSMOLALITY (CALC) 282 MOSM/KG 022 3:20 AM [facility] Comment:REFERENCE RANGE NOT ESTABLISHED GFR ESTIMATE >90 >90 ML/MIN/1. 73 M2 08/05/2022 3:20 AM [employer]PORT [facility] GFR NOTES GFR REFERENCE S: 08/05/2022 3:20 AM [facility] Comment: THE ESTIMATED GFR IS [...] FAILURE: <15 ml/min/1.73 m2 08/05/2022 2:11 AM DIRECTOR AIRPORT Lanre Winter MD LABORATORY Final Result [facility] [address] [place] [address], [id number] * (ABNORMAL) CBC W/DIFF AUTOMATED (08/05/2022 2:11 AM DIRECTOR AIRPORT) WBC 6.6 4.0 - 10.8 x10'3/uL 08/05/2022 2:39 AM [employer]PORT [facility] RBC 2.17(L) 4.50 - 6.10 x10'6/uL 08/05/2022 2:39 AM [facility] HGB 7.0(L) 13.0 - 18.0 G/DL 08/05/2022 2:39 AM [employer] [facility] HCT 22.0(L) 37.0 - 52.0 % 08/05/2022 2:39 AM [facility] MCV 101.4(H) 78.0 - 100.0 FL 08/05/2022 2:39 AM [facility] MCH 32.3(H) 27.0 - 31.0 PG 08/05/2022 2:39 AM [facility] MCHC 31.8(L) 33.0 - 36.0 G/DL 08/05/2022 2:39 AM [facility] RDW 14.7(H) 11.5 - 14.5 % 08/05/2022 2:39 AM [facility] PLT 185 150 - 350 x10'3/uL 08/05/2022 2:39 AM [facility] MPV 11.0(H) 7.4 - 10.4 FL 08/05/2022 2:39 AM [facility] ABS. NEUTROPHILS 4.78 1.60 - 8.30 x10'3/uL 08/05/2022 2:39 AM [facility] ABS. LYMPHOCYTES 1.03 0.80 - 4.70 x10'3/uL 08/05/2022 2:39 AM DIRECTOR AIRPORT [facility] ABS. MONOCYTES 0.68 0.00 - 1.50 x10'3/uL 08/05/2022 2:39 AM DIRECTOR AIRPORT [facility] ABS. EOSINOPHILS 0.10 0.00 - 0.40 x10'3/uL 08/05/2022 2:39 AM [facility] ABS. BASOPHILS 0.01 0.00 - 0.20 x10'3/uL 08/05/2022 2:39 AM [facility] ABS. IMMATURE GRANULOCYTES 0.03 0.00 - 0.03 x10'3/uL 08/05/2022 2:39 AM [facility] ABS. NUCLEATED RBC'S 0.00 0.0 x10'3/uL 08/05/2022 2:39 AM [facility] 08/05/2022 2:11 AM DIRECTOR AIRPORT Lanre Winter MD LABORATORY Final Result [facility] [address] [place] [address], [id number] * CT CHEST WO CON (08/04/2022 3:22 PM DIRECTOR AIRPORT) Anatomical Region Laterality Modality Chest Computed Tomogra phy 08/04/2022 3:35 PM DIRECTOR AIRPORT Impressions 08/04/2022 5:17 PM DIRECTOR AIRPORT IMPRESSION: 1. Interval decrease in size of [...] 08/04/2022 3:35 PM Narrative 08/04/2022 5:17 PM DIRECTOR AIRPORT EXAMINATION: CT CHEST - NON CONTRAST INDICATION: [...] Interpreted By: Ulisses Arcos, 08/04/2022 3:35 PM Patel Kelsey MD CT Final Result * XR CHEST PA OR AP 1V (08/04/2022 5:27 AM DIRECTOR AIRPORT) Anatomical Region Laterality Modality Chest Radiographic Jasmina ging 08/04/2022 6:43 AM DIRECTOR AIRPORT Impressions 08/04/2022 6:44 AM DIRECTOR AIRPORT IMPRESSION: ======== ?? 1. ??Increasing size of tiny right effusion with scattered right lower lung increasing infiltrates. ??Improving effusion on the left. Referred By: PROVIDER NON-STAFF Interpreted By: Mitch Carpenter MD, 08/04/2022 6:43 AM Narrative 08/04/2022 6:44 AM DIRECTOR AIRPORT Examination: Chest Radiograph, 1 view Exam Date/Time: [...] By: Mitch Carpenter MD, 08/04/2022 6:43 AM Edvin RUIZ GENERAL IMAGING Final Result * (ABNORMAL) COMPREHENSIVE METABOLIC PANEL (08/04/2022 2:34 AM DIRECTOR AIRPORT) SODIUM S/P/B 137 136 - 145 MMOL/L 08/04/2022 3:11 AM DIRECTOR AIRPORT [facility] POTASSIUM S/P/B 3.7 3.5 - 5.1 MMOL/L 08/04/2022 3:11 AM [facility] CHLORIDE S/P/B 103 98 - 107 MMOL/L 08/04/2022 3:11 AM [facility] CO2 28.6 21.0 - 32.0 MMOL/L 08/04/2022 3:11 AM [facility] GLUCOSE 106 74 - 106 MG/DL 08/04/2022 3:11 AM DIRECTOR AIRPORT [facility] BUN 12 7 - 18 MG/DL 08/04/2022 3:11 AM [facility] CREATININE S/P/B 0.62(L) 0.70 - 1.30 MG/DL 08/04/2022 3:11 AM [facility] CALCIUM S/P/B 7.9(L) 8.5 - 10.1 MG/DL 08/04/2022 3:11 AM [facility] BILIRUBIN TOTAL S/P/B 0.6 0.2 - 1.0 MG/DL 08/04/2022 3:11 AM [facility] ALKALINE PHOSPHATASE S/P/B 41(L) 45 - 115 U/L 08/04/2022 3:11 AM [facility] AST 11(L) 15 - 37 U/L 08/04/2022 3:11 AM [facility] ALT 11(L) 16 - 61 U/L 08/04/2022 3:11 AM [facility] TOTAL PROTEIN S/P/B 5.0(L) 6.4 - 8.2 G/DL 08/04/2022 3:11 AM [facility] ALBUMIN S/P/B 1.6(L) 3.4 - 5.0 G/DL 08/04/2022 3:11 AM [facility] ANION GAP 5.4 5.0 - 15.0 MMOL/L 08/04/2022 3:11 AM [facility] OSMOLALITY (CALC) 284 MOSM/KG 022 3:11 AM [facility] Comment:REFERENCE RANGE NOT ESTABLISHED GFR ESTIMATE >90 >90 ML/MIN/1. 73 M2 08/04/2022 3:11 AM [facility] GFR NOTES GFR REFERENCE S: 08/04/2022 3:11 AM [facility] Comment: THE ESTIMATED GFR IS [...] FAILURE: <15 ml/min/1.73 m2 08/04/2022 2:34 AM DIRECTOR AIRPORT Lanre Winter MD LABORATORY Final Result [facility] [address] [place] [address], [id number] * (ABNORMAL) CBC W/DIFF AUTOMATED (08/04/2022 2:34 AM DIRECTOR AIRPORT) WBC 8.5 4.0 - 10.8 x10'3/uL 08/04/2022 2:41 AM DIRECTOR AIRPORT [facility] RBC 2.39(L) 4.50 - 6.10 x10'6/uL 08/04/2022 2:41 AM [facility] HGB 7.6(L) 13.0 - 18.0 G/DL 08/04/2022 2:41 AM DIRECTOR AIRPORT [facility] HCT 24.4(L) 37.0 - 52.0 % 08/04/2022 2:41 AM [facility] MCV 102.1(H) 78.0 - 100.0 FL 08/04/2022 2:41 AM DIRECTOR AIRPORT [facility] MCH 31.8(H) 27.0 - 31.0 PG 08/04/2022 2:41 AM [facility] MCHC 31.1(L) 33.0 - 36.0 G/DL 08/04/2022 2:41 AM DIRECTOR AIRPORT [facility] RDW 14.8(H) 11.5 - 14.5 % 08/04/2022 2:41 AM DIRECTOR AIRPORT [facility] PLT 178 150 - 350 x10'3/uL 08/04/2022 2:41 AM [facility] MPV 10.3 7.4 - 10.4 FL 08/04/2022 2:41 AM [facility] ABS. NEUTROPHILS 6.33 1.60 - 8.30 x10'3/uL 08/04/2022 2:41 AM DIRECTOR AIRPORT [facility] ABS. LYMPHOCYTES 1.11 0.80 - 4.70 x10'3/uL 08/04/2022 2:41 AM DIRECTOR AIRPORT [facility] ABS. MONOCYTES 0.85 0.00 - 1.50 x10'3/uL 08/04/2022 2:41 AM DIRECTOR AIRPORT [facility] ABS. EOSINOPHILS 0.14 0.00 - 0.40 x10'3/uL 08/04/2022 2:41 AM DIRECTOR AIRPORT [facility] ABS. BASOPHILS 0.01 0.00 - 0.20 x10'3/uL 08/04/2022 2:41 AM DIRECTOR AIRPORT [facility] ABS. IMMATURE GRANULOCYTES 0.05(H) 0.00 - 0.03 x10'3/uL 08/04/2022 2:41 AM DIRECTOR AIRPORT [facility] ABS. NUCLEATED RBC'S 0.00 0.0 x10'3/uL 08/04/2022 2:41 AM DIRECTOR AIRPORT [facility] 08/04/2022 2:34 AM DIRECTOR AIRPORT Lanre Winter MD LABORATORY Final Result [facility] [address] [place] [address], [id number] * XR CHEST PA OR AP 1V (08/03/2022 5:50 AM DIRECTOR AIRPORT) Anatomical Region Laterality Modality Chest Radiographic Jasmina ging 08/03/2022 9:15 AM DIRECTOR AIRPORT Impressions 08/03/2022 9:16 AM DIRECTOR AIRPORT IMPRESSION: ======== ?? Developing tiny right pleural effusion otherwise stable interval appearance of infiltrates or atelectasis in the lung bases with probable left effusion. Referred By: PROVIDER NON-STAFF Interpreted By: Mitch Carpenter MD, 08/03/2022 9:15 AM Narrative 08/03/2022 9:16 AM DIRECTOR AIRPORT Examination: Chest Radiograph, 1 view Exam Date/Time: [...] (ABNORMAL) COMPREHENSIVE METABOLIC PANEL (08/03/2022 2:22 AM [facility] Signature SODIUM S/P/B 136 136 - 145 MMOL/L 08/03/2022 3:42 AM [facility] POTASSIUM S/P/B 3.8 3.5 - 5.1 MMOL/L 08/03/2022 3:42 AM [facility] CHLORIDE S/P/B 102 98 - 107 MMOL/L 08/03/2022 3:42 AM [facility] CO2 28.4 21.0 - 32.0 MMOL/L 08/03/2022 3:42 AM [facility] GLUCOSE 109(H) 74 - 106 MG/DL 08/03/2022 3:42 AM [facility] BUN 11 7 - 18 MG/DL 08/03/2022 3:42 AM [facility] CREATININE S/P/B 0.75 0.70 - 1.30 MG/DL 08/03/2022 3:42 AM [facility] CALCIUM S/P/B 8.0(L) 8.5 - 10.1 MG/DL 08/03/2022 3:42 AM [facility] BILIRUBIN TOTAL S/P/B 0.6 0.2 - 1.0 MG/DL 08/03/2022 3:42 AM [facility] ALKALINE PHOSPHATASE S/P/B 49 45 - 115 U/L 08/03/2022 3:42 AM [facility] AST 11(L) 15 - 37 U/L 08/03/2022 3:42 AM [facility] ALT 13(L) 16 - 61 U/L 08/03/2022 3:42 AM [facility] TOTAL PROTEIN S/P/B 5.4(L) 6.4 - 8.2 G/DL 08/03/2022 3:42 AM [facility] ALBUMIN S/P/B 1.9(L) 3.4 - 5.0 G/DL 08/03/2022 3:42 AM DIRECTOR AIRPORT [facility] ANION GAP 5.6 5.0 - 15.0 MMOL/L 08/03/2022 3:42 AM [facility] OSMOLALITY (CALC) 282 MOSM/KG 022 3:42 AM [facility] Comment:REFERENCE RANGE NOT ESTABLISHED GFR ESTIMATE >90 >90 ML/MIN/1. 73 M2 08/03/2022 3:42 AM [facility] GFR NOTES GFR REFERENCE S: 08/03/2022 3:42 AM [facility] Comment: THE ESTIMATED GFR IS [...] FAILURE: <15 ml/min/1.73 m2 08/03/2022 2:22 AM DIRECTOR AIRPORT Lanre Winter MD LABORATORY Final Result [facility] [address] [place] [id number], [phone] * (ABNORMAL) CBC W/DIFF AUTOMATED (08/03/2022 2:22 AM DIRECTOR AIRPORT) WBC 11.0(H) 4.0 - 10.8 x10'3/uL 08/03/2022 3:09 AM DIRECTOR AIRPORT [facility] RBC 2.84(L) 4.50 - 6.10 x10'6/uL 08/03/2022 3:09 AM [facility] HGB 9.2(L) 13.0 - 18.0 G/DL 08/03/2022 3:09 AM [facility] HCT 28.9(L) 37.0 - 52.0 % 08/03/2022 3:09 AM [facility] MCV 101.8(H) 78.0 - 100.0 FL 08/03/2022 3:09 AM [facility] MCH 32.4(H) 27.0 - 31.0 PG 08/03/2022 3:09 AM [facility] MCHC 31.8(L) 33.0 - 36.0 G/DL 08/03/2022 3:09 AM [facility] RDW 15.1(H) 11.5 - 14.5 % 08/03/2022 3:09 AM [facility] PLT 216 150 - 350 x10'3/uL 08/03/2022 3:09 AM [facility] MPV 10.8(H) 7.4 - 10.4 FL 08/03/2022 3:09 AM [facility] ABS. NEUTROPHILS 8.98(H) 1.60 - 8.30 x10'3/uL 08/03/2022 3:09 AM [facility] ABS. LYMPHOCYTES 0.81 0.80 - 4.70 x10'3/uL 08/03/2022 3:09 AM [facility] ABS. MONOCYTES 1.00 0.00 - 1.50 x10'3/uL 08/03/2022 3:09 AM [facility] ABS. EOSINOPHILS 0.12 0.00 - 0.40 x10'3/uL 08/03/2022 3:09 AM [facility] ABS. BASOPHILS 0.01 0.00 - 0.20 x10'3/uL 08/03/2022 3:09 AM [facility] ABS. IMMATURE GRANULOCYTES 0.08(H) 0.00 - 0.03 x10'3/uL 08/03/2022 3:09 AM DIRECTOR AIRPORT [facility] ABS. NUCLEATED RBC'S 0.00 0.0 x10'3/uL 08/03/2022 3:09 AM DIRECTOR AIRPORT [facility] 08/03/2022 2:22 AM DIRECTOR AIRPORT Lanre Winter MD LABORATORY Final Result [facility] [address] [place] [address], [place] [phone] * XR CHEST PORTABLE (08/02/2022 9:58 AM DIRECTOR AIRPORT) Anatomical Region Laterality Modality Chest Radiographic Jasmina ging 08/02/2022 10:5 5 AM DIRECTOR AIRPORT Impressions 08/02/2022 10:57 AM DIRECTOR AIRPORT IMPRESSION: 1. Unchanged bibasilar opacities. Ordered By: EDVIN POLLACK Interpreted By: Atilio Read MD, 08/02/2022 10:55 AM Narrative 08/02/2022 10:57 AM DIRECTOR AIRPORT Examination: X-ray chest, 1 view Exam time: [...] Read MD, 08/02/2022 10:55 AM Edvin Pollack PA GENERAL IMAGING Final Result * SMEAR,FLUOR STAIN,ACID FAST (08/02/2022 8:38 AM DIRECTOR AIRPORT) Pathologist [facility] ACID FAST SMEAR RESULT SEE NOTE 07:45 PM 08/05/2022 7:45 PM DIRECTOR AIRPORT [facility] Comment: Test ?Result ??Flag ??Unit ??RefValue Acid Fast Smear For Mycobacterium SOURCE: LUNG, RIGHT, RT DECORTICATION TIS ACID FAST SMEAR FOR MYCOBACTERIUM ?FINAL Negative. Test Performed by: [place] [address] Test Design Engineer: Brent Alcaraz M.D. Ph.D.; CLIA# [id number] 08/02/2022 8:38 AM DIRECTOR AIRPORT Ross Blackburn MD MICROBIOLOGY - GENERAL OR DERABLES Final Result [facility] [address] [place] [address] * CULTURE, TISSUE W/GRAM STAIN (08/02/2022 8:38 AM DIRECTOR AIRPORT) SPEC DESCRIPTION TISSUE: RT DECORTICATION TISU 08/02/2022 8:43 AM DIRECTOR AIRPORT [facility] SPECIAL REQUESTS NO SPECIAL REQUEST 08/02/2022 8:43 AM [facility] GRAM STAIN RESULT MODERATE NEUTROPHILS SEEN 08/02/2022 4:02 PM [facility] GRAM STAIN RESULT NO ORGANISMS SEEN 08/02/2022 4:02 PM [facility] CULTURE RESULT NO GROWTH 5 DAYS 01/2022 11:36 AM [facility] TISSUE TISSUE SPECIMEN / Unknown 08/02/2022 8:38 AM DIRECTOR AIRPORT us Ross Blackburn MD MICROBIOLOGY - GENERAL OR DERABLES Final Result [facility] [address] [place] [address], [phone] * CULTURE, FUNGUS (08/02/2022 8:38 AM DIRECTOR AIRPORT) SOURCE ([place]) TISSUE 08/02/2022 10:10 AM DIRECTOR AIRPORT [facility] Comment:RT DECORTICATION TIS U CULTURE RESULT SEE NOTE 08/29/2022 01:03 AM 08/29/2022 1:[address] [facility] Comment: Test ?Result ?Flag ??Unit ??RefValue Fungal Culture, Routine ? SOURCE: LUNG, RIGHT, TISSUE RT DECORTICATION TISU FUNGAL CULTURE, ROUTINE ?FINAL No growth after 24 days of incubation. Test Performed by: [facility] [address] [place] [address] Test Design Engineer: Brent Alcaraz M.D. Ph.D.; IA# [id number] TISSUE (OTHER (type in comments)) 08/02/2022 8:38 AM DIRECTOR AIRPORT us Ross Blackburn MD MICROBIOLOGY - GENERAL OR DERABLES Final Result [facility] [address] [place] [address] [facility] [address] [place] [address], [phone] * CULTURE TB/AFB OTHER (TYPE IN COMMENTS) (08/02/2022 8:38 AM DIRECTOR AIRPORT) SOURCE ([place]) TISSUE 08/02/2022 10:09 AM DIRECTOR AIRPORT [facility] Comment:RT DECORTICATION TIS U CULTURE RESULT SEE NOTE 09/16/2022 01:03 AM 09/16/2022 1:03 AM DIRECTOR AIRPORT [facility] Comment: Test ?Result ?Flag ??Unit ??RefValue Mycobacterial Culture ? SOURCE: LUNG, RIGHT, TISSUE RT DECORTICATION TISU MYCOBACTERIAL CULTURE ?FINAL No growth after 42 days of incubation. Test Performed by: [facility] [address] [place] [address] Test Design Engineer: Brent Alcaraz M.D. Ph.D.; [facility]# [id number] TISSUE (OTHER (type in comments)) 08/02/2022 8:38 AM DIRECTOR AIRPORT Ross Blackburn MD MICROBIOLOGY - GENERAL OR DERABLES Final Result Performing Organization Address [facility] de Phone Number [facility] [address] [place] [address] [facility] [address] [place] [address], [phone] * CULTURE, ANAEROBIC (08/02/2022 8:38 AM DIRECTOR AIRPORT) SPEC DESCRIPTION TISSUE: RT DECORTICATION TISU 08/02/2022 8:43 AM DIRECTOR AIRPORT [facility] SPECIAL REQUESTS NO SPECIAL REQUEST 08/02/2022 8:43 AM DIRECTOR AIRPORT [facility] CULTURE RESULT NO ANAEROBES ISOLATED 08/07/2022 9:10 AM DIRECTOR AIRPORT [facility] TISSUE TISSUE SPECIMEN / Unknown 08/02/2022 8:38 AM DIRECTOR AIRPORT Ross Blackburn MD MICROBIOLOGY - GENERAL OR DERABLES Final Result Performing Organization Address [facility] de Phone Number [facility] [address] [place] [address], [phone] * Pathology (08/02/2022 7:03 AM DIRECTOR AIRPORT) PATHOLOGY [facility] ? Department of Laboratory Medicine ?[address] ?[place] [address] ? , extension [phone] ? Pathology Report ? Surgical Pathology Report Name: RAY PHILLIPS ? Specimen #: [id number] Age: 9 1955 (Age: 67) ? Location: [facility] Sex: M ?Procedure Date: 08/02/2022 Hospital #: [id number] ?Date Received: 08/02/2022 Date Reported: 08/07/2022 Provider: ROSS BLACKBURN MD Source: Pleural peel, right Clinical History: Pleural effusion Gross Description: Received in formalin, labeled with a patient label and as right lung decortication tissue are multiple pieces and fragments of edematous pale [id number] tissue. ??Some of the pieces exhibit some hemorrhagic areas. The pieces are 6 x 4 x 1.0 cm in aggregate. ??[employer] tissue is submitted in cassettes 1-4. Gross examination (when applicable), interpretation and sign-out were performed at [facility], [address] [place] [address], [id number]. FINAL DIAGNOSIS: PLEURAL PEEL, RIGHT: ? - CONSISTENT WITH ACUTE FIBRINOUS PLEURITIS. IC: CBG Electronically Signed Out ? GADIEL HANSON MD [facility] TISSUE (OTHER (type in comments)) 08/02/2022 7:03 AM DIRECTOR AIRPORT Ross Blackburn MD PATHOLOGY/CYTOLOGY ORDERA BLES Final Result Performing Organization Address [facility] Co de Phone Number [facility] [address] [place] [address], [phone] * TYPE & SCREEN (08/01/2022 11:11 PM DIRECTOR AIRPORT) ABO/RH B POSITIVE 08/02/2022 12:25 AM DIRECTOR AIRPORT [facility] ANTIBODY SCREEN NEGATIVE 08/02/2022 12:25 AM DIRECTOR AIRPORT [facility] SAMPLE EXPIRATION 08/04/2022,2 359 08/01/2022 11:27 PM DIRECTOR AIRPORT [facility] 08/01/2022 11:1 1 PM DIRECTOR AIRPORT Ross Blackburn MD BLOOD BANK TEST ORDERABLE S Final Result Performing Organization Address [facility] Co de Phone Number [facility] [address] [place] [address], [phone] * (ABNORMAL) BMP WITHOUT GLUCOSE (08/01/2022 11:31 AM DIRECTOR AIRPORT) SODIUM S/P/B 138 136 - 145 MMOL/L 08/01/2022 12:12 PM DIRECTOR AIRPORT [facility] POTASSIUM S/P/B 3.9 3.5 - 5.1 MMOL/L 08/01/2022 12:12 PM DIRECTOR AIRPORT [facility] CHLORIDE S/P/B 107 98 - 107 MMOL/L 08/01/2022 12:12 PM DIRECTOR AIRPORT [facility] CO2 24.1 21.0 - 32.0 MMOL/L 08/01/2022 12:12 PM [facility] BUN 16 7 - 18 MG/DL 08/01/2022 12:12 PM [facility] CREATININE S/P/B 0.70 0.70 - 1.30 MG/DL 08/01/2022 12:12 PM [facility] CALCIUM S/P/B 7.9(L) 8.5 - 10.1 MG/DL 08/01/2022 12:12 PM [facility] ANION GAP 6.9 5.0 - 15.0 MMOL/L 08/01/2022 12:12 PM [facility] GFR ESTIMATE >90 >90 ML/MIN/1. 73 M2 08/01/2022 12:12 PM [facility] GFR NOTES GFR REFERENCE S: 08/01/2022 12:12 PM [facility] Comment: THE ESTIMATED GFR IS [...] <15 ml/min/1.73 m2 08/01/2022 11:3 1 AM DIRECTOR AIRPORT Florencio Amaya MD LABORATORY Final Result [facility] [address] [place] [address], [phone] * Vancomycin Random Level (08/01/2022 11:31 AM DIRECTOR AIRPORT) VANCOMYCIN RANDOM 18.7 MCG/ML 08/01/2022 12:30 PM [facility] 08/01/2022 11:3 1 AM DIRECTOR AIRPORT Florencio Amaya MD LABORATORY Final Result [facility] [address] [place] [address], [phone] * (ABNORMAL) COMPREHENSIVE METABOLIC PANEL (08/01/2022 2:42 AM DIRECTOR AIRPORT) Pathologist [facility] SODIUM S/P/B 140 136 - 145 MMOL/L 08/01/2022 4:00 AM [facility] POTASSIUM S/P/B 3.4(L) 3.5 - 5.1 MMOL/L 08/01/2022 4:00 AM [facility] CHLORIDE S/P/B 107 98 - 107 MMOL/L 08/01/2022 4:00 AM [facility] CO2 27.2 21.0 - 32.0 MMOL/L 08/01/2022 4:00 AM [facility] GLUCOSE 145(H) 74 - 106 MG/DL 08/01/2022 4:00 AM [facility] BUN 19(H) 7 - 18 MG/DL 08/01/2022 4:00 AM [facility] CREATININE S/P/B 0.77 0.70 - 1.30 MG/DL 08/01/2022 4:00 AM [facility] CALCIUM S/P/B 8.1(L) 8.5 - 10.1 MG/DL 08/01/2022 4:00 AM [facility] BILIRUBIN TOTAL S/P/B 0.4 0.2 - 1.0 MG/DL 08/01/2022 4:00 AM [facility] ALKALINE PHOSPHATASE S/P/B 50 45 - 115 U/L 08/01/2022 4:00 AM [facility] AST 8(L) 15 - 37 U/L 08/01/2022 4:00 AM [facility] ALT 14(L) 16 - 61 U/L 08/01/2022 4:00 AM [facility] TOTAL PROTEIN S/P/B 5.0(L) 6.4 - 8.2 G/DL 08/01/2022 4:00 AM [facility] ALBUMIN S/P/B 1.7(L) 3.4 - 5.0 G/DL 08/01/2022 4:00 AM [facility] ANION GAP 5.8 5.0 - 15.0 MMOL/L 08/01/2022 4:00 AM [facility] OSMOLALITY (CALC) 295 MOSM/KG 022 4:00 AM [facility] Comment:REFERENCE RANGE NOT ESTABLISHED GFR ESTIMATE >90 >90 ML/MIN/1. 73 M2 08/01/2022 4:00 AM [facility] GFR NOTES GFR REFERENCE S: 08/01/2022 4:00 AM [facility] Comment: THE ESTIMATED GFR IS [...] FAILURE: <15 ml/min/1.73 m2 08/01/2022 2:42 AM DIRECTOR AIRPORT us Lanre Winter MD LABORATORY Final Result [facility] [address] [place] [address], [phone] * (ABNORMAL) CBC W/DIFF AUTOMATED (08/01/2022 2:42 AM DIRECTOR AIRPORT) [facility] WBC 11.1(H) 4.0 - 10.8 x10'3/uL 08/01/2022 3:32 AM DIRECTOR AIRPORT [facility] RBC 2.58(L) 4.50 - 6.10 x10'6/uL 08/01/2022 3:32 AM [facility] HGB 8.6(L) 13.0 - 18.0 G/DL 08/01/2022 3:32 AM [facility] HCT 26.4(L) 37.0 - 52.0 % 08/01/2022 3:32 AM [facility] MCV 102.3(H) 78.0 - 100.0 FL 08/01/2022 3:32 AM [facility] MCH 33.3(H) 27.0 - 31.0 PG 08/01/2022 3:32 AM [facility] MCHC 32.6(L) 33.0 - 36.0 G/DL 08/01/2022 3:32 AM [facility] RDW 15.4(H) 11.5 - 14.5 % 08/01/2022 3:32 AM [employer] [facility] PLT 246 150 - 350 x10'3/uL 08/01/2022 3:32 AM [facility] MPV 10.4 7.4 - 10.4 FL 08/01/2022 3:32 AM [facility] ABS. NEUTROPHILS 8.96(H) 1.60 - 8.30 x10'3/uL 08/01/2022 3:32 AM [facility] ABS. LYMPHOCYTES 1.27 0.80 - 4.70 x10'3/uL 08/01/2022 3:32 AM [employer] [facility] ABS. MONOCYTES 0.60 0.00 - 1.50 x10'3/uL 08/01/2022 3:32 AM [employer] [facility] ABS. EOSINOPHILS 0.12 0.00 - 0.40 x10'3/uL 08/01/2022 3:32 AM [employer] [facility] ABS. BASOPHILS 0.01 0.00 - 0.20 x10'3/uL 08/01/2022 3:32 AM [facility] ABS. IMMATURE GRANULOCYTES 0.14(H) 0.00 - 0.03 x10'3/uL 08/01/2022 3:32 AM [facility] ABS. NUCLEATED RBC'S 0.00 0.0 x10'3/uL 08/01/2022 3:32 AM [facility] 08/01/2022 2:42 AM [employer] Lanre Winter MD LABORATORY Final Result [facility] [address] [place] [address], [id number] * (ABNORMAL) COMPREHENSIVE METABOLIC PANEL (07/31/2022 11:13 AM [employer]) SODIUM S/P/B 137 136 - 145 MMOL/L 07/31/2022 11:54 AM [facility] POTASSIUM S/P/B 3.6 3.5 - 5.1 MMOL/L 07/31/2022 11:54 AM [facility] CHLORIDE S/P/B 104 98 - 107 MMOL/L 07/31/2022 11:54 AM [facility] CO2 27.8 21.0 - 32.0 MMOL/L 07/31/2022 11:54 AM [facility] GLUCOSE 106 74 - 106 MG/DL 07/31/2022 11:54 AM [facility] BUN 20(H) 7 - 18 MG/DL 07/31/2022 11:54 AM [facility] CREATININE S/P/B 0.74 0.70 - 1.30 MG/DL 07/31/2022 11:54 AM [facility] CALCIUM S/P/B 8.1(L) 8.5 - 10.1 MG/DL 07/31/2022 11:54 AM [facility] BILIRUBIN TOTAL S/P/B 0.3 0.2 - 1.0 MG/DL 07/31/2022 11:54 AM [facility] ALKALINE PHOSPHATASE S/P/B 54 45 - 115 U/L 07/31/2022 11:54 AM [facility] AST 8(L) 15 - 37 U/L 07/31/2022 11:54 AM [facility] ALT 15(L) 16 - 61 U/L 07/31/2022 11:54 AM [facility] TOTAL PROTEIN S/P/B 5.6(L) 6.4 - 8.2 G/DL 07/31/2022 11:54 AM [facility] ALBUMIN S/P/B 1.9(L) 3.4 - 5.0 G/DL 07/31/2022 11:54 AM [facility] ANION GAP 5.2 5.0 - 15.0 MMOL/L 07/31/2022 11:54 AM [facility] OSMOLALITY (CALC) 287 MOSM/KG 022 11:54 AM [facility] Comment:REFERENCE RANGE NOT ESTABLISHED GFR ESTIMATE >90 >90 ML/MIN/1. 73 M2 07/31/2022 11:54 AM [facility] GFR NOTES GFR REFERENCE S: 07/31/2022 11:54 AM [facility] Comment: THE ESTIMATED GFR IS [...] <15 ml/min/1.73 m2 07/31/2022 11:1 3 AM [employer] Lanre Winter MD LABORATORY Final Result [facility] [address] [place] [address], [id number] * CT CHEST WO CON (07/31/2022 10:22 AM [employer]) Anatomical Region Laterality Modality Chest Computed Tomogra phy 07/31/2022 1:56 PM [employer]PORT Impressions 07/31/2022 2:07 PM DIRECTOR AIRPORT IMPRESSION: 1. Focal loculated hydropneumothorax, right posterior [...] 07/31/2022 1:56 PM Narrative 07/31/2022 2:07 PM DIRECTOR AIRPORT EXAMINATION: CT Chest without contrast DATE: 07/31/2022 [...] MD, 07/31/2022 1:56 PM us Araceli Hudson PA-Juventino CT Final Resu lt * (ABNORMAL) CBC W/DIFF AUTOMATED (07/31/2022 9:41 AM DIRECTOR AIRPORT) WBC 16.2(H) 4.0 - 10.8 x10'3/uL 07/31/2022 9:55 AM DIRECTOR AIRPORT [facility] RBC 3.07(L) 4.50 - 6.10 x10'6/uL 07/31/2022 9:55 AM DIRECTOR AIRPORT [facility] HGB 10.1(L) 13.0 - 18.0 G/DL 07/31/2022 9:55 AM DIRECTOR AIRPORT [facility] HCT 31.0(L) 37.0 - 52.0 % 07/31/2022 9:55 AM DIRECTOR AIRPORT [facility] MCV 101.0(H) 78.0 - 100.0 FL 07/31/2022 9:55 AM DIRECTOR AIRPORT [facility] MCH 32.9(H) 27.0 - 31.0 PG 07/31/2022 9:55 AM DIRECTOR AIRPORT [facility] MCHC 32.6(L) 33.0 - 36.0 G/DL 07/31/2022 9:55 AM DIRECTOR AIRPORT [facility] RDW 15.3(H) 11.5 - 14.5 % 07/31/2022 9:55 AM [facility] PLT 277 150 - 350 x10'3/uL 07/31/2022 9:55 AM [facility] MPV 10.4 7.4 - 10.4 FL 07/31/2022 9:55 AM [facility] ABS. NEUTROPHILS 14.00(H) 1.60 - 8.30 x10'3/uL 07/31/2022 9:55 AM [facility] ABS. LYMPHOCYTES 1.26 0.80 - 4.70 x10'3/uL 07/31/2022 9:55 AM [facility] ABS. MONOCYTES 0.59 0.00 - 1.50 x10'3/uL 07/31/2022 9:55 AM [facility] ABS. EOSINOPHILS 0.01 0.00 - 0.40 x10'3/uL 07/31/2022 9:55 AM [facility] ABS. BASOPHILS 0.02 0.00 - 0.20 x10'3/uL 07/31/2022 9:55 AM [facility] ABS. IMMATURE GRANULOCYTES 0.36(H) 0.00 - 0.03 x10'3/uL 07/31/2022 9:55 AM [facility] ABS. NUCLEATED RBC'S 0.03(H) 0.0 x10'3/uL 07/31/2022 9:55 AM [facility] 07/31/2022 9:41 AM DIRECTOR AIRPORT Lanre Winter MD LABORATORY Final Result [facility] [address] [place] [address], [id number] * XR CHEST PORTABLE (07/31/2022 6:00 AM DIRECTOR AIRPORT) Anatomical Region Laterality Modality Chest Radiographic Jasmina ging 07/31/2022 9:13 AM DIRECTOR AIRPORT Impressions 07/31/2022 9:17 AM DIRECTOR AIRPORT IMPRESSION: 1. Right-sided chest remains in place. [...] 07/31/2022 9:13 AM Narrative 07/31/2022 9:17 AM DIRECTOR AIRPORT EXAM DESCRIPTION: Chest 1 view EXAM TIME [...] Res ult * Bronchoscopy (07/30/2022 4:15 PM DIRECTOR AIRPORT) Narrative Procedure Note Patti Pineda MD - [...] CULTURE VIRAL RESPIRATORY RAPID (07/30/2022 3:30 PM DIRECTOR AIRPORT) VIRAL RESP RAPID CULTURE W/RFX REPORT 08/05/2022 3:21 PM DIRECTOR AIRPORT [facility] Comment: Respiratory Culture Screen SOURCE : BWASH/BAL MIX IN RESULT ?Negative for Influenza virus, types A and B, Parainfluenza viruses 1,2 # 3, Adenovirus, and Respiratory Syncytial virus. Reference range: Negative Rapid Respiratory Viruses ? Not indicated Test Performed by [employer], [employer] [facility], [address] [place] [address] Adrián Balderas M.D., Ph.D., Director of Laboratories , CLIA [id number] SPECIMEN TYPE BWASH/BAL MIX IN VTM 1 TO 1 RATIO, FRZ NEG 70 07/31/2022 2:35 PM DIRECTOR AIRPORT [facility] 07/30/2022 3:30 PM DIRECTOR AIRPORT Patti Pineda MD MICROBIOLOGY - GENERAL ORDERABLES Final Result Performing Organization Address [facility] Co de Phone Number [facility] [address] [place] [address], [place] [phone] [employer] [address] , * CULTURE HERPES (07/30/2022 3:30 PM DIRECTOR AIRPORT) HERPES SIMPLEX VIRUS CULTURE REPORT 08/03/2022 3:42 PM DIRECTOR AIRPORT [facility] Comment: Herpes Simplex Virus Culture SOURCE : BAL/BWASH MIX IN RESULT ?Not Isolated ?Reference Range: Not Isolated Test Performed by [employer], [employer] [facility], [address] [place] [address] Adrián Balderas M.D., Ph.D., Director of Laboratories , CLIA [id number] SPECIMEN TYPE BAL/BWASH MIX IN MIM 1 TO 1 RATIO, FRZ NEG 70 07/31/2022 2:32 PM DIRECTOR AIRPORT [facility] 07/30/2022 3:30 PM DIRECTOR AIRPORT us Patti Pineda MD MICROBIOLOGY - GENERAL ORDERABLES Final Result Performing Organization Address [facility] Co de Phone Number [facility] [address] [place] [address], [id number] [employer] [address] , [place] [phone] * CULTURE CMV (07/30/2022 3:30 PM DIRECTOR AIRPORT) [facility] CYTOMEGALOVIRUS CULTURE REPORT 08/06/2022 5:37 PM DIRECTOR AIRPORT [facility] Comment: CMV Rapid Culture SOURCE : BAL RESULT ?Not Isolated ? Reference Range: Not Isolated Test Performed by Javier Benítez [employer] [facility], [address] [place] [address] Adrián Balderas M.D., Ph.D., Director of Laboratories , [facility] [id number] SPECIMEN SOURCE BAL/BWASH MIX IN VTM 1 TO 1 RATIO, FRZ NEG 70 07/31/2022 2:31 PM DIRECTOR AIRPORT [facility] 07/30/2022 3:30 PM DIRECTOR AIRPORT Howierosa maria Pineda MD MICROBIOLOGY - GENERAL ORDERABLES Final Result [facility] [address] [place] [address], [id number] [employer] [address] , [place] [phone] * CULTURE, QUANTITATIVE W/ GRAM STAIN (07/30/2022 3:30 PM DIRECTOR AIRPORT) [facility] SPEC DESCRIPTION SITE: BAL RLL 07/30/2022 5:04 PM DIRECTOR AIRPORT [facility] SPECIAL REQUESTS NO SPECIAL REQUEST 07/30/2022 5:04 PM DIRECTOR AIRPORT [facility] GRAM STAIN RESULT <10 NEUTROPHILS PER LPF 07/31/2022 4:41 AM [facility] GRAM STAIN RESULT <10 EPITHELIAL CELLS PER LPF 07/31/2022 4:41 AM DIRECTOR AIRPORT [facility] GRAM STAIN RESULT RARE GRAM NEGATIVE RODS 07/31/2022 4:41 AM [facility] CULTURE RESULT 500 CFU/ML YEAST , ID UPON REQUEST 08/02/2022 2:57 PM DIRECTOR AIRPORT [facility] SPECIMEN FROM UNSPECIFIED BODY SITE / Unknown 07/30/2022 3:30 PM DIRECTOR AIRPORT 07/30/2022 5:03 PM DIRECTOR AIRPORT Comment:BAL RLL Florencio Amaya MD MICROBIOLOGY - GENERAL ORDERABLE S Final Result [facility] [address] [place] [address], [id number] * CULTURE TB/AFB OTHER (07/30/2022 3:30 PM DIRECTOR AIRPORT) SOURCE ([place]) SITE 07/30/2022 5:03 PM DIRECTOR AIRPORT [facility] Comment:BRONCH WASH CULTURE RESULT SEE NOTE 3 01:04 AM 09/13/2022 1:[address] [facility] Comment: Test ?Result ?Flag ??Unit ??RefValue Mycobacterial Culture ? SOURCE: BRONCHIAL WASHING, SITE BRONCH WASH MYCOBACTERIAL CULTURE ?FINAL No growth after 42 days of incubation. Test Performed by: [place] [address] Test Design Engineer: Brent Alcaraz M.D. Ph.D.; CLIA# [id number] 07/30/2022 3:30 PM DIRECTOR AIRPORT Florencio Amaya MD MICROBIOLOGY - GENERAL ORDERABLE S Final Result Performing Organization Address [facility] Co de Phone Number [address] [address] [facility] [address] [place] [address], [place] [phone] * SMEAR,FLUOR STAIN,ACID FAST (07/30/2022 3:30 PM DIRECTOR AIRPORT) ACID FAST SMEAR RESULT SEE NOTE 11:18 PM 08/01/2022 11:18 PM DIRECTOR AIRPORT [facility] Comment: Test ?Result ??Flag ??Unit ??RefValue Acid Fast Smear For Mycobacterium SOURCE: BRONCHIAL WASHING, BWASH/BAL MIX ACID FAST SMEAR FOR MYCOBACTERIUM ?FINAL Negative. Test Performed by: [address] [address] Test Design Engineer: Brent Alcaraz M.D. Ph.D.; CLIA# [id number] 07/30/2022 3:30 PM DIRECTOR AIRPORT us Florencio Amaya MD MICROBIOLOGY - GENERAL ORDERABLE S Final Result Performing Organization Address [facility]/ZIP Co de Phone Number [address] [address] * CULTURE RESPIRATORY W/ GRAM STAIN (07/30/2022 3:30 PM DIRECTOR AIRPORT) SPEC DESCRIPTION SITE: BRONCH WASH 07/30/2022 5:01 PM DIRECTOR AIRPORT [facility] SPECIAL REQUESTS NO SPECIAL REQUEST 07/30/2022 5:01 PM DIRECTOR AIRPORT [facility] GRAM STAIN RESULT MANY NEUTROPHILS SEEN 07/30/2022 8:16 PM DIRECTOR AIRPORT [facility] GRAM STAIN RESULT NO ORGANISMS SEEN 07/30/2022 8:16 PM DIRECTOR AIRPORT [facility] CULTURE RESULT FEW TETE ALBICANS 08/03/2022 12:28 PM DIRECTOR AIRPORT [facility] SPECIMEN FROM UNSPECIFIED BODY SITE / Unknown 07/30/2022 3:30 PM DIRECTOR AIRPORT 07/30/2022 5:00 PM DIRECTOR AIRPORT Comment:BRONCH WASH Florencio Amaya MD MICROBIOLOGY - GENERAL ORDERABLE S Final Result [facility] [address] [place] [address], [id number] * (ABNORMAL) CULTURE, FUNGUS (07/30/2022 3:30 PM DIRECTOR AIRPORT) Pathologist [facility] SOURCE ([place]) SITE 07/30/2022 5:01 PM DIRECTOR AIRPORT [facility] Comment:BRONCH WASH CULTURE RESULT SEE NOTE 08:01 AM(A) 08/28/2022 8:01 AM DIRECTOR AIRPORT [facility] Comment: Test ?Result ?Flag ??Unit ??RefValue Fungal Culture, Routine ?A ? SOURCE: BRONCHIAL WASHING, SITE BRONCH WASH FUNGAL CULTURE, ROUTINE ?FINAL TETE ALBICANS ? Many NAKASEOMYCES (TETE) GLABRATA ??Few Test Performed by: [place] [address] Test Design Engineer: Brent Alcaraz M.D. Ph.D.; CLIA# [id number] 07/30/2022 3:30 PM DIRECTOR AIRPORT Florencio Amaya MD MICROBIOLOGY - GENERAL ORDERABLE S Final Result Performing Organization Address [facility] de Phone Number [facility] [address] [place] [address] [facility] [address] [place] [address], [place] [phone] * Bronchoscopy (07/30/2022 2:41 PM DIRECTOR AIRPORT) Patti Pineda MD PROCEDURE/MINOR SURGIC AL ORDERABLES Final Result * Vancomycin Random Level (07/30/2022 6:17 AM DIRECTOR AIRPORT) VANCOMYCIN RANDOM 24.4 MCG/ML 07/30/2022 7:34 AM DIRECTOR AIRPORT [facility] Comment:REFERENCE RANGE NOT ESTABLISHED 07/30/2022 6:17 AM DIRECTOR AIRPORT us Florencio Amaya MD LABORATORY Final Result Performing Organization Address [facility] Co de Phone Number [facility] [address] [place] [address], [place] [phone] * XR CHEST PORTABLE (07/30/2022 5:27 AM DIRECTOR AIRPORT) Anatomical Region Laterality Modality Chest Radiographic Jasmina ging 07/30/2022 8:33 AM DIRECTOR AIRPORT Impressions 07/30/2022 8:37 AM DIRECTOR AIRPORT IMPRESSION: 1) Interval decrease in small left pleural effusion and left basilar consolidation. No other significant change. Ordered By: RODNEY NOLASCO Interpreted By: Nigel Peña MD, 07/30/2022 8:33 AM Narrative 07/30/2022 8:37 AM DIRECTOR AIRPORT Examination: XR CHEST PORTABLE Exam time: 07/30/2022 [...] ult * CYTOLOGY GENERIC (07/30/2022 12:00 AM DIRECTOR AIRPORT) CYTOLOGY OTHER [facility] ? Department of Laboratory Medicine ?[address] ?[place] [address] ? , extension [phone] ? Pathology Report ? Non-gynecologic Cytology Report Name: RYA PHILLIPS ? Specimen #: [id number] Age: 9 1955 (Age: 67) ? Location: [facility] Sex: M ?Procedure Date: 07/30/2022 Hospital #: [id number] ?Date Received: 07/31/2022 Date Reported: 08/01/2022 Provider: [...] case was interpreted and signed out at [facility], [address] [place] [address], [place], [place], [facility]. FINAL DIAGNOSIS: LUNG, RIGHT LOWER LOBE, BRONCHOALVEOLAR [...] FOR VIRAL INCLUSIONS. Electronically Signed Out ? AGDIEL HANSON MD [facility] 07/30/2022 07/31/2022 12:13 PM DIRECTOR AIRPORT Comment:LUNG, RIGHT LOWER LO BE, BRONCHOALVEOLAR LAVAGE us Anna Us MD PATHOLOGY/CYTOLOGY ORDERABL ES Final Result [facility] [address] [place] [address], [place] [address], [place] [phone] * CYTOLOGY GENERIC (07/30/2022 12:00 AM DIRECTOR AIRPORT) CYTOLOGY OTHER [facility] ? Department of Laboratory Medicine ?[address] [facility] ?[place] [address] ? , extension [phone] ? Pathology Report ? Non-gynecologic Cytology Report Name: RAY PHILLIPS E ? Specimen #: [id number] Age: 9 1955 (Age: 67) ? Location: [facility] Sex: M ?Procedure Date: 07/30/2022 Hospital #: [id number] ?Date Received: 07/31/2022 Date Reported: 08/01/2022 Provider: PATTI PINEDA MD ?TRACY YO MD ?FLORENCIO AMAYA MD ?LANRE WINTER MD ?DE VILLASENOR MD Source: LUNG, GENERAL AIRWAYS, BRONCHIAL WASHING Clinical History: Necrotizing pneumonia, smoking and asbestos exposure Gross Description: SPECIMEN RECEIVED: ? 11 cc's of cloudy mucoid fluid ? SLIDES PREPARED: ?1 ThinPrep and 1 cytospin ?STAINS: ? Papanicolasarah, GMS This case was interpreted and signed out at [facility], [address] [place] [address], [place], [place], [facility]. FINAL DIAGNOSIS: LUNG, GENERAL AIRWAYS, BRONCHIAL WASHING: ? - SATISFACTORY FOR EVALUATION. ? - NEGATIVE FOR MALIGNANT CELLS. ? - ACUTE INFLAMMATION AND SCATTERED EPITHELIAL CELLS. ? - GMS STAIN DEMONSTRATES RARE FUNGAL HYPHAE OF UNCERTAIN SIGNIFICANCE. Electronically Signed Out ? GADIEL HANSON MD [facility] 07/30/2022 07/31/2022 12: 18 PM DIRECTOR AIRPORT Comment:LUNG, GENERAL AIRWAY S, BRONCHIAL WASHING us Anna Us MD PATHOLOGY/CYTOLOGY ORDERABL ES Final Result [facility] [address] [place] [address], [id number] * (ABNORMAL) CULTURE, FUNGUS (07/28/2022 2:25 PM DIRECTOR AIRPORT) SOURCE ([place]) SPUTUM 07/31/2022 1:36 PM DIRECTOR AIRPORT [facility] CULTURE RESULT SEE NOTE 08/28/2022 08:14 AM(A) 08/28/2022 8:14 AM DIRECTOR AIRPORT [facility] Comment: Test ?Result ?Flag ??Unit ??RefValue Fungal Culture, Routine ?A ? SOURCE: SPUTUM Fungal specimen plated for culture, volume inadequate for optimal recovery. FUNGAL CULTURE, ROUTINE ?FINAL TETE ALBICANS ??Many Test Performed by: [place] [address] Test Design Engineer: Brent Alcaraz M.D. Ph.D.; CLIA# [id number] SPUTUM / Unknown 07/28/2022 2:25 PM DIRECTOR AIRPORT Tracy Yo MD MICROBIOLOGY - GENERA L ORDERABLES Edited Result - Final [facility] [address] [place] [address] [facility] [address] [place] [address], [id number] * CULTURE RESPIRATORY W/ GRAM STAIN (07/28/2022 2:25 PM DIRECTOR AIRPORT) SPEC DESCRIPTION SPUTUM, EXPECTORATED 07/28/2022 2:25 PM DIRECTOR AIRPORT [facility] SPECIAL REQUESTS NO SPECIAL REQUEST 07/28/2022 2:25 PM DIRECTOR AIRPORT [facility] GRAM STAIN RESULT >25 NEUTROPHILS PER LPF 07/28/2022 10:41 PM DIRECTOR AIRPORT [facility] GRAM STAIN RESULT <10 EPITHELIAL CELLS PER LPF 07/28/2022 10:41 PM DIRECTOR AIRPORT [facility] GRAM STAIN RESULT RARE BUDDING YEAST CELLS 07/28/2022 10:41 PM DIRECTOR AIRPORT [facility] GRAM STAIN RESULT RARE GRAM POSITIVE COCCI IN PAIRS 07/28/2022 10:41 PM DIRECTOR AIRPORT [facility] GRAM STAIN RESULT RARE GRAM NEGATIVE RODS 07/28/2022 10:41 PM DIRECTOR AIRPORT [facility] CULTURE RESULT FEW ALPHA STREPTOCOCCUS 07/29/2022 2:57 PM DIRECTOR AIRPORT [facility] CULTURE RESULT MODERATE PRESUMPTIVE TETE ALBICANS 07/29/2022 2:57 PM DIRECTOR AIRPORT [facility] SPUTUM SPECIMEN / Unknown 07/28/2022 2:25 PM DIRECTOR AIRPORT 07/28/2022 3:24 PM DIRECTOR AIRPORT Tracy Yo MD MICROBIOLOGY - GENERA L ORDERABLES Final Result [facility] [address] [place] [address], [phone] * US ABD LIMITED (07/28/2022 11:39 AM DIRECTOR AIRPORT) Anatomical Region Laterality Modality Abdomen Ultrasound 07/29/2022 6:03 AM DIRECTOR AIRPORT Impressions 07/29/2022 6:06 AM DIRECTOR AIRPORT IMPRESSION: 1. ??3 cysts in the spleen with the largest 2.1 cm. ??The smallest of the 3 cyst demonstrates thin internal septation but appears benign. ??No follow-up imaging is recommended. 2. ??Splenomegaly. Referred By: PROVIDER NON-STAFF Interpreted By: Karine Sher MD, 07/29/2022 6:03 AM Narrative 07/29/2022 6:06 AM DIRECTOR AIRPORT EXAM: Ultrasound abdomen limited spleen. Multiple transabdominal [...] (ABNORMAL) CBC W/DIFF AUTOMATED (07/28/2022 7:03 AM DIRECTOR AIRPORT) [facility] WBC 13.5(H) 4.0 - 10.8 x10'3/uL 07/28/2022 7:39 AM [facility] RBC 2.51(L) 4.50 - 6.10 x10'6/uL 07/28/2022 7:39 AM [facility] HGB 8.3(L) 13.0 - 18.0 G/DL 07/28/2022 7:39 AM [facility] HCT 25.1(L) 37.0 - 52.0 % 07/28/2022 7:39 AM [facility] MCV 100.0 78.0 - 100.0 FL 07/28/2022 7:39 AM [facility] MCH 33.1(H) 27.0 - 31.0 PG 07/28/2022 7:39 AM [facility] MCHC 33.1 33.0 - 36.0 G/DL 07/28/2022 7:39 AM [facility] RDW 14.7(H) 11.5 - 14.5 % 07/28/2022 7:39 AM [facility] PLT 303 150 - 350 x10'3/uL 07/28/2022 7:39 AM [facility] MPV 10.1 7.4 - 10.4 FL 07/28/2022 7:39 AM [facility] ABS. NEUTROPHILS 11.61(H) 1.60 - 8.30 x10'3/uL 07/28/2022 8:06 AM [facility] ABS. NEUTROPHILS CALCULATED 11.07(H) 1.60 - 7.30 x10'3/uL 07/28/2022 8:06 AM [facility] BANDS 0.27 0.00 - 1.00 x10'3/uL 07/28/2022 8:06 AM [facility] ABS. LYMPHOCYTES 1.08 0.80 - 4.70 x10'3/uL 07/28/2022 8:06 AM [facility] ABS. MONOCYTES 0.81 0.00 - 1.50 x10'3/uL 07/28/2022 8:06 AM [facility] ABS. EOSINOPHILS 0.00 0.00 - 0.40 x10'3/uL 07/28/2022 8:06 AM [facility] ABS. BASOPHILS 0.00 0.00 - 0.20 x10'3/uL 07/28/2022 8:06 AM [facility] ABS. METAMYELOCYTES 0.27(H) 0.00 x10'3/uL 07/28/2022 8:06 AM [facility] ABS. NUCLEATED RBC'S 0.00 0.0 x10'3/uL 07/28/2022 8:06 AM [facility] RBC MORPHOLOGY POLYCHROMASIA 022 8:06 AM [facility] Comment:SLIGHT PLT MORPH. NORMAL 07/28/2022 8:06 AM [facility] 07/28/2022 7:03 AM [facility] Florencio Amaya MD LABORATORY Final Result [facility] [address] [place] [phone], [id number] * (ABNORMAL) BASIC METABOLIC PANEL (07/28/2022 7:03 AM DIRECTOR AIRPORT) SODIUM S/P/B 137 136 - 145 MMOL/L 07/28/2022 7:50 AM [facility] POTASSIUM S/P/B 4.0 3.5 - 5.1 MMOL/L 07/28/2022 7:50 AM [facility] CHLORIDE S/P/B 105 98 - 107 MMOL/L 07/28/2022 7:50 AM [facility] CO2 28.7 21.0 - 32.0 MMOL/L 07/28/2022 7:50 AM [facility] GLUCOSE 98 74 - 106 MG/DL 07/28/2022 7:50 AM [facility] BUN 19(H) 7 - 18 MG/DL 07/28/2022 7:50 AM [facility] CREATININE S/P/B 0.73 0.70 - 1.30 MG/DL 07/28/2022 7:50 AM [facility] CALCIUM S/P/B 7.9(L) 8.5 - 10.1 MG/DL 07/28/2022 7:50 AM [facility] ANION GAP 3.3(L) 5.0 - 15.0 MMOL/L 07/28/2022 7:50 AM [facility] OSMOLALITY (CALC) 286 MOSM/KG 022 7:50 AM [facility] Comment:REFERENCE RANGE NOT ESTABLISHED GFR ESTIMATE >90 >90 ML/MIN/1. 73 M2 07/28/2022 7:50 AM [facility] GFR NOTES GFR REFERENCE S: 07/28/2022 7:50 AM [facility] Comment: THE ESTIMATED GFR IS [...] FAILURE: <15 ml/min/1.73 m2 07/28/2022 7:03 AM DIRECTOR AIRPORT Florencio Amaya MD LABORATORY Final Result Performing Organization Address City/[facility]/ZIP Co de Phone Number [facility] [address] [place] [address], [place] [phone] * Vancomycin Random Level (07/28/2022 7:03 AM DIRECTOR AIRPORT) VANCOMYCIN RANDOM 7.0 MCG/ML 07/28/2022 7:52 AM DIRECTOR AIRPORT [facility] Comment:REFERENCE RANGE NOT ESTABLISHED 07/28/2022 7:03 AM DIRECTOR AIRPORT Tracy Yo MD LABORATORY Final Result Performing Organization Address [facility] Co de Phone Number [facility] [address] [place] [address], [place] [phone] * XR CHEST PORTABLE (07/28/2022 12:43 AM DIRECTOR AIRPORT) Anatomical Region Laterality Modality Chest Radiographic Jasmina ging 07/28/2022 1:18 AM DIRECTOR AIRPORT Impressions 07/28/2022 1:26 AM DIRECTOR AIRPORT IMPRESSION: 1. ??Right basilar pigtail catheter remains [...] 07/28/2022 1:18 AM Narrative 07/28/2022 1:26 AM DIRECTOR AIRPORT EXAMINATION: XR CHEST PORTABLE HISTORY:chest tube COMPARISON: [...] By: Harjinder Cobb MD, 07/28/2022 1:18 AM Rodney Nolasco MD GENERAL IMAGING Final Res ult * XR CHEST PORTABLE (07/27/2022 4:22 PM DIRECTOR AIRPORT) Anatomical Region Laterality Modality Chest Radiographic Jasmina ging 07/27/2022 4:42 PM DIRECTOR AIRPORT Impressions 07/27/2022 4:44 PM DIRECTOR AIRPORT IMPRESSION: 1. Right-sided pigtail chest tube. 2. Bilateral pulmonary opacities. 3. Cardiomegaly. Pulmonary vascular congestion. Ordered By: RODNEY NOLASCO Interpreted By: Can Klein DO, 07/27/2022 4:42 PM Narrative 07/27/2022 4:44 PM DIRECTOR AIRPORT EXAMINATION: XR CHEST PORTABLE HISTORY: Chest tube [...] ult * USE ECHOCARDIOGRAM (07/27/2022 1:13 PM DIRECTOR AIRPORT) Anatomical Region Laterality Modality Cardiac Echocardiogram 07/27/2022 12:4 4 PM DIRECTOR AIRPORT Narrative 07/28/2022 6:32 AM DIRECTOR AIRPORT ?Echocardiography Report Pat.Name: ??RAY PHILLIPS ? Pat.ID: ?[id number] ? St.Date: ?? 07/27/2022 ? Refer.MD: ??[id number] NON-STAFF PROVIDER ?EWDPROV ?EWDPROV Exam Time: 12:44:00 PM ? Study Type:ECHO WITH CARDIAC DOPPLER COMP Height: ?165 cm ?Weight: ?68 kg ? BSA: ? 1.75 m2 ?Age: ??1955,67Y ? Sex: ? M ? BP: ?138/68 ? HR: ?70 bpm ?Sonogrphr: Avery Marie RDCS ? Pat. Stat.:Inpatient ? Room: ?742 ? CPT - 4: ?93102 ? Reason for Study:Pericardial effusion Procedures: 2D, [...] ?? Value ?229 g ? LV Mass [id number] ?? Value ?131 g/m2 ? Right Ventricle [...] MD - 07/28/2022 Echocardiography Report Pat.Name: RAY PHILLIPS Noelle Pat.ID: [id number] .Date: 07/27/2022 Refer.: [id number] NON-STAFF PROVIDER EWDPRORichard EWDPROV Exam Time: 12:44:00 PM Study Type:ECHO WITH CARDIAC DOPPLER COMP Height: 165 cm Weight: 68 kg BSA: 1.75 m2 Age: 9 1955,67Y Sex: M BP: 138/68 HR: 70 bpm Sonogrphr: Avery Marie [facility] Pat. Stat.:Inpatient Room: 742 CPT - 4: 93011 Reason for Study:Pericardial effusion Procedures: 2D, M-mode, [...] Mass 2D Value 229 g LV Mass [id number] Value 131 g/m2 Right Ventricle Right Ventricle [...] MIDLINE PLACEMENT GREATER 3YR (07/27/2022 11:20 AM DIRECTOR AIRPORT) Anatomical Region Laterality Modality Chest Interventional R adiology 07/27/2022 11:1 5 AM DIRECTOR AIRPORT Impressions 07/27/2022 11:23 AM DIRECTOR AIRPORT Impression: Successful image guided left basilic vein inserted midline line venous catheter. Plan: 1. ??Left midline venous catheter okay for immediate use. 2. ??IR follow-up as needed. Thank you for allowing [facility] to assist in this patient's care! Ordered By: TRACY YO Interpreted By: Reji Cantrell MD, 07/27/2022 11:15 AM Narrative 07/27/2022 11:23 AM DIRECTOR AIRPORT IR MIDLINE VENOUS CATHETER PLACEMENT Pre op diagnosis: . IV access required. Midline requested. Post Op Diagnosis: same Procedure: Midline venous catheter placement. Grafts/Implants: 4 [place] midline venous catheter Interventional Radiologist: Óscar Food Stand Manager: ANSON Keating tech Anesthesia: Local - 1% [...] centrally. Peel-away sheath was placed. A 4 [place] single lumen midline, 20 cm. This was [...] Procedure: Midline venous catheter placement. Grafts/Implants: 4 [place] midline venous catheter Interventional Radiologist: Óscar Food Stand Manager: ANSON Keating tech Anesthesia: Local - 1% [...] advancedcentrally. Peel-away sheath was placed. A 4 [place] single lumen midline,20 cm. This was advanced [...] CHEST TUBE INSERT RT (07/27/2022 10:57 AM DIRECTOR AIRPORT) Anatomical Region Laterality Modality Chest Computed Tomogra phy 07/27/2022 12:0 5 PM DIRECTOR AIRPORT Impressions 07/27/2022 12:13 PM DIRECTOR AIRPORT IMPRESSION: Successful CT-guided right thoracostomy tube placement as described. The stopcock will initially be left in the closed position for fibrinolytic 4 hour dwell time. The tube will then be placed to low wall suction. Output and serial radiographs will be monitored to determine further management. Ordered By: FLORENCIO AMAYA Interpreted By: Raul Osuna MD, 07/27/2022 12:05 PM Narrative 07/27/2022 12:13 PM DIRECTOR AIRPORT PROCEDURE: CT-guided right thoracostomy tube placement Indication: Necrotizing pneumonia with loculated hydropneumothorax Physicians: Raul Osuna M.D. (attending); Rodney Nolasco M.D. (resident) Following informed consent, including discussion of procedural risks, the patient was place in the left lateral decubitus position on the CT table and Andale protocol was observed to verify correct patient, [...] CT. The tract was dilated to 12 Malawian. During dilation, there was temporary retraction of the wire resulting in slight kinking and difficulty advancing the tube. Access was again regained using the one-step sheath needle, followed again by CT confirmation of position, wire placement, and tract dilation. A 12-Malawian pigtail drainage catheter with the locking stitch [...] lateral decubitus position on the CT tableand Andale protocol was observed to verify correct patient, [...] by CT. The tractwas dilated to 12 Malawian. During dilation, there was temporary retractionof the wire resulting in slight kinking and difficulty advancing the tube.Access was again regained using the one-step sheath needle, followed againby CT confirmation of position, wire placement, and tract dilation. [id number] pigtail drainage catheter with the locking stitch [...] Result * CULTURE, ANAEROBIC (07/27/2022 10:30 AM DIRECTOR AIRPORT) SPEC DESCRIPTION SITE: RT PLEURAL FLUID 07/27/2022 12:59 PM DIRECTOR AIRPORT [facility] SPECIAL REQUESTS NO SPECIAL REQUEST 07/27/2022 12:59 PM DIRECTOR AIRPORT [facility] CULTURE RESULT FEW MICROAEROPHILIC STREPTOCOCCUS 07/30/2022 5:41 PM DIRECTOR AIRPORT [facility] SPECIMEN FROM UNSPECIFIED BODY SITE / Unknown 07/27/2022 10:30 AM DIRECTOR AIRPORT 07/27/2022 12:08 PM DIRECTOR AIRPORT Comment:RT PLEURAL FLUID Narrative Organism Antibiotic Method Susceptibility Microaerophilic streptococcus CEFOTAXIME ARLEN (ETEST) 0.023: Sensitive Microaerophilic streptococcus PENICILLIN G ARLEN (ETEST) 0.008: Sensitive Florencio Amaya MD MICROBIOLOGY - GENERAL ORDERABLE S Final Result Performing Organization Address City/State/[facility] Co de Phone Number [facility] [address] [place] [address], [phone] * CULTURE, BODY FLUID W/ GRAM STAIN (07/27/2022 10:30 AM DIRECTOR AIRPORT) SPEC DESCRIPTION PLEURAL FLUID: RT 07/27/2022 12:09 PM DIRECTOR AIRPORT [facility] SPECIAL REQUESTS NO SPECIAL REQUEST 07/27/2022 12:09 PM DIRECTOR AIRPORT [facility] GRAM STAIN RESULT MANY NEUTROPHILS SEEN 07/27/2022 4:31 PM DIRECTOR AIRPORT [facility] GRAM STAIN RESULT NO ORGANISMS SEEN 07/27/2022 4:31 PM DIRECTOR AIRPORT [facility] CULTURE RESULT RARE STAPHYLOCOCCUS EPIDERMIDIS 07/31/2022 7:51 AM DIRECTOR AIRPORT [facility] PLEURAL FLUID SPECIMEN / Unknown 07/27/2022 10:30 AM DIRECTOR AIRPORT 07/27/2022 12:08 PM DIRECTOR AIRPORT Comment:RT Narrative Organism Antibiotic Method Susceptibility Staphylococcus [...] ORDERABLE S Final Result Performing Organization Address [facility] Co de Phone Number [facility] [address] [place] [address], [phone] * PROTEIN TOTAL FLUID (07/27/2022 10:30 AM DIRECTOR AIRPORT) PROTEIN (FLUID) 3.5 G/DL 3:22 PM DIRECTOR AIRPORT [facility] Comment:REFERENCE RANGE NOT ESTABLISHED FOR THIS BODY FLUID. SOURCE (FLUID) PLEURAL FLUID 07/27/2022 10:53 AM DIRECTOR AIRPORT [facility] PLEURAL FLUID SPECIMEN / Unknown 07/27/2022 10:30 AM DIRECTOR AIRPORT Tracy Yo MD BODY FLUIDS AND STOOL S ORDERABLES Final Result Performing Organization Address [facility] de Phone Number [facility] [address] [place] [address], [phone] * CELL COUNT W/ DIFF BODY FLUID (07/27/2022 10:30 AM DIRECTOR AIRPORT) SOURCE (FLUID) PLEURAL FLUID 022 3:08 PM DIRECTOR AIRPORT [facility] WBC (FLUID) 144.450 x10'3/uL 07/27/2022 3:08 PM DIRECTOR AIRPORT [facility] Comment:REFERENCE RANGE NOT ESTABLISHED RBC (FLUID) 0.090 x10'6/uL 07/27/2022 3:08 PM DIRECTOR AIRPORT [facility] Comment:REFERENCE RANGE NOT ESTABLISHED DIFFERENTIAL MANUAL DIFFERENTIAL PERFORMED ON CONCENTRATED CYTOSPIN 07/27/2022 10:53 AM DIRECTOR AIRPORT [facility] CELLS COUNTED 100 No COUNTED 07/27/2022 3:45 PM DIRECTOR AIRPORT [facility] SEGS (FLUID) 97 % 07/27/2022 3:45 PM DIRECTOR AIRPORT [facility] LYMPHS (FLUID) 3 % 07/27/2022 3:45 PM DIRECTOR AIRPORT [facility] PLEURAL FLUID SPECIMEN / Unknown 07/27/2022 10:30 AM DIRECTOR AIRPORT us Tracy Yo MD BODY FLUIDS AND STOOL S ORDERABLES Final Result Performing Organization Address [facility] Co de Phone Number [facility] [address] [place] [address], [place] [phone] * LDH BODY FLUID (07/27/2022 10:30 AM DIRECTOR AIRPORT) LDH (FLUID) >4,000 UNITS/L 07/27/2022 3:22 PM DIRECTOR AIRPORT [facility] Comment:REFERENCE RANGE NOT ESTABLISHED FOR THIS BODY FLUID. SOURCE (FLUID) PLEURAL FLUID 07/27/2022 10:53 AM DIRECTOR AIRPORT [facility] PLEURAL FLUID SPECIMEN / Unknown 07/27/2022 10:30 AM DIRECTOR AIRPORT us Tracy Yo MD BODY FLUIDS AND STOOL S ORDERABLES Final Result Performing Organization Address [facility] Co de Phone Number [facility] [address] [place] [address], [place] [phone] * TRANSFUSE RED BLOOD CELLS (07/27/2022 7:04 AM DIRECTOR AIRPORT) us Florencio Amaya MD NURSING TREATMENT ORDERABLES - B LOOD ADMIN Final Result * TRANSFUSE RED BLOOD CELLS, 1 Units (07/27/2022 7:04 AM DIRECTOR AIRPORT) us Florencio Amaya MD NURSING TREATMENT ORDERABLES - B LOOD ADMIN Final Result * (ABNORMAL) BMP WITHOUT GLUCOSE (07/27/2022 2:40 AM DIRECTOR AIRPORT) SODIUM S/P/B 138 136 - 145 MMOL/L 07/27/2022 3:30 AM [facility] POTASSIUM S/P/B 3.7 3.5 - 5.1 MMOL/L 07/27/2022 3:30 AM [facility] CHLORIDE S/P/B 106 98 - 107 MMOL/L 07/27/2022 3:30 AM [facility] CO2 26.0 21.0 - 32.0 MMOL/L 07/27/2022 3:30 AM [facility] BUN 22(H) 7 - 18 MG/DL 07/27/2022 3:30 AM [facility] CREATININE S/P/B 0.91 0.70 - 1.30 MG/DL 07/27/2022 3:30 AM [facility] CALCIUM S/P/B 8.2(L) 8.5 - 10.1 MG/DL 07/27/2022 3:30 AM [facility] ANION GAP 6.0 5.0 - 15.0 MMOL/L 07/27/2022 3:30 AM [facility] GFR ESTIMATE >90 >90 ML/MIN/1. 73 M2 07/27/2022 3:30 AM [facility] GFR NOTES GFR REFERENCE S: 07/27/2022 3:30 AM [facility] Comment: THE ESTIMATED GFR IS [...] FAILURE: <15 ml/min/1.73 m2 07/27/2022 2:40 AM DIRECTOR AIRPORT Florencio Amaya MD LABORATORY Final Result [facility] [address] [place] [address], [place] [phone] * (ABNORMAL) CBC W/DIFF AUTOMATED (07/27/2022 2:40 AM DIRECTOR AIRPORT) WBC 21.3(H) 4.0 - 10.8 x10'3/uL 07/27/2022 3:07 AM [facility] RBC 1.98(L) 4.50 - 6.10 x10'6/uL 07/27/2022 3:07 AM [facility] HGB 6.5(LL) 13.0 - 18.0 G/DL 07/27/2022 3:07 AM [facility] Comment: CRITICAL RESULT, SPECIMEN DATE, TIME WERE READ BACK BY ALANNAH LINCOLN @0307 07.27.22 BY JOSÉ MIGUEL HCT 20.2(L) 37.0 - 52.0 % 07/27/2022 3:07 AM [facility] MCV 102.0(H) 78.0 - 100.0 FL 07/27/2022 3:07 AM [facility] MCH 32.8(H) 27.0 - 31.0 PG 07/27/2022 3:07 AM [facility] MCHC 32.2(L) 33.0 - 36.0 G/DL 07/27/2022 3:07 AM [facility] RDW 14.2 11.5 - 14.5 % 07/27/2022 3:07 AM [facility] PLT 347 150 - 350 x10'3/uL 07/27/2022 3:07 AM [facility] MPV 10.4 7.4 - 10.4 FL 07/27/2022 3:07 AM DIRECTOR AIRPORT [facility] ABS. NEUTROPHILS 20.24(H) 1.60 - 8.30 x10'3/uL 07/27/2022 3:25 AM DIRECTOR AIRPORT [facility] ABS. NEUTROPHILS CALCULATED 19.17(H) 1.60 - 7.30 x10'3/uL 07/27/2022 3:25 AM [facility] ABS. LYMPHOCYTES 0.85 0.80 - 4.70 x10'3/uL 07/27/2022 3:25 AM [facility] ABS. MONOCYTES 0.21 0.00 - 1.50 x10'3/uL 07/27/2022 3:25 AM [facility] ABS. EOSINOPHILS 0.00 0.00 - 0.40 x10'3/uL 07/27/2022 3:25 AM [facility] ABS. BASOPHILS 0.00 0.00 - 0.20 x10'3/uL 07/27/2022 3:25 AM [facility] ABS. METAMYELOCYTES 0.64(H) 0.00 x10'3/uL 07/27/2022 3:25 AM [facility] ABS. MYELOCYTES 0.21(H) 0.00 x10'3/uL 07/27/2022 3:25 AM [facility] ABS. PROMYELOCYTES 0.21(H) 0.00 x10'3/uL 07/27/2022 3:25 AM [facility] ABS. NUCLEATED RBC'S 0.00 0.0 x10'3/uL 07/27/2022 3:25 AM [facility] RBC MORPHOLOGY POLYCHROMASIA 022 3:25 AM [facility] Comment: SLIGHT ANISOCYTOSIS SLIGHT MACROCYTOSIS SLIGHT PLT MORPH. NORMAL 07/27/2022 3:25 AM [facility] 07/27/2022 2:40 AM DIRECTOR AIRPORT us Florencio A Beatrice MD LABORATORY Final Result Performing Organization Address City/[facility]/ZIP Co de Phone Number [facility] [address] [place] [address], [phone] * (ABNORMAL) PROCALCITONIN (PCT) (07/26/2022 12:55 PM DIRECTOR AIRPORT) Procalcitonin 1.83(H) <0.50 NG/ML 07/27/2022 9:06 AM DIRECTOR AIRPORT [facility] 07/26/2022 12:5 5 PM DIRECTOR AIRPORT Patel Kelsey MD LABORATORY Final Result Performing Organization Address [facility] Co de Phone Number [facility] [address] [place] [address], [phone] * BLASTOMYCES AB PANEL, (CF, ID) (07/26/2022 12:55 PM DIRECTOR AIRPORT) BLASTOMYCES AB FIXATION <1:8 <1:8 08/02/2022 5:09 PM DIRECTOR AIRPORT [facility] Comment: Interpretive Criteria: ? <1:8 [...] analytical performance characteristics have been determined by [place] It has not been cleared or approved by the U.S. Food and Drug Administration. This assay has been validated pursuant to the CLIA regulations and is used for clinical purposes. BLASTO IMMUNODIFFUSION Negative Negative 08/02/2022 5:09 PM DIRECTOR AIRPORT [facility] Comment: ?Interpretive Criteria: ?? Negative: Antibody not detected ?? Positive: Antibody detected A positive result is diagnostic of active or recent blastomycosis and is found in approximately 80% of proven cases of blastomycosis. Test Performed by [facility], [employer] [place], [id number] [place] [address] Adrián Balderas M.D., Ph.D., Director of Laboratories , CLIA [id number] 07/26/2022 12:5 5 PM DIRECTOR AIRPORT us Sergio Raza MD LABORATORY Final Result [facility] [place] [id number] [place], [place] , * HISTOPLASMA ANTIBODY PANEL (CF,IM) (07/26/2022 12:55 PM DIRECTOR AIRPORT) HISTOPLASMA YEAST AB <1:8 <1:8 08/02/2022 5:09 PM DIRECTOR AIRPORT [facility] HISTOPLASMA MYCELIAL AB <1:8 <1:8 08/02/2022 5:09 PM DIRECTOR AIRPORT [facility] Comment: Interpretive Criteria: ? <1:8 - [...] analytical performance characteristics have been determined by [place] It has not been cleared or approved by the FDA. This assay has been validated pursuant to the CLIA regulations and is used for clinical purposes. HISTOPLASMA CAPSULATUM H AB Negative Negative 08/02/2022 5:09 PM DIRECTOR AIRPORT [facility] Comment: This immunodiffusion assay is highly specific [...] the diagnosis of histoplasmosis. Test Performed by [facility], [employer], [address] [place] [address] Adrián Balderas M.D., Ph.D., Director of Laboratories , CLIA [id number] HISTOPLASMA CAPSULATUM M AB Negative Negative 08/02/2022 5:09 PM DIRECTOR AIRPORT [facility] 07/26/2022 12:5 5 PM DIRECTOR AIRPORT Sergio Raza MD LABORATORY Final Result [facility] [address] , * (ABNORMAL) HEMOGLOBIN AND HEMATOCRIT (07/26/2022 12:55 PM DIRECTOR AIRPORT) HGB 7.1(L) 13.0 - 18.0 G/DL 07/26/2022 1:14 PM DIRECTOR AIRPORT [facility] HCT 21.5(L) 37.0 - 52.0 % 07/26/2022 1:14 PM DIRECTOR AIRPORT [facility] 07/26/2022 12:5 5 PM DIRECTOR AIRPORT Tracy Yo MD LABORATORY Final Result [facility] [address] [place] [address], [place] [phone] * BLOOD SMEAR INTERPRETATION BY (07/26/2022 9:04 AM DIRECTOR AIRPORT) CBC PATHOLOGIST COMMENT DUPLICATE. SAME TEST ORDERED BY DIFFERENT DOCTORS. 07/26/2022 11:20 AM DIRECTOR AIRPORT [facility] Comment: CORRECTED ON 07/26 AT 1120: Previously reported as SENT TO PATHOLOGIST FOR REVIEW 07/26/2022 9:04 AM DIRECTOR AIRPORT us Florencio Amaya MD LABORATORY Edited Result - Final Performing Organization Address [facility]/ZIP Co de Phone Number [facility] [address] [place] [address], [phone] * (ABNORMAL) HAPTOGLOBIN, QUANT (07/26/2022 9:04 AM DIRECTOR AIRPORT) HAPTOGLOBIN 412.0(H) 30.0 - 200.0 MG/DL 07/26/2022 9:55 AM DIRECTOR AIRPORT [facility] 07/26/2022 9:04 AM DIRECTOR AIRPORT us Florencio Amaya MD LABORATORY Final Result Performing Organization Address [facility]/ZIP Co de Phone Number [facility] [address] [place] [address], [phone] * XR CHEST PORTABLE (07/26/2022 6:55 AM DIRECTOR AIRPORT) Anatomical Region Laterality Modality Chest Radiographic Jasmina ging 07/26/2022 7:27 AM DIRECTOR AIRPORT Impressions 07/26/2022 7:29 AM DIRECTOR AIRPORT IMPRESSION: Loculated effusion on the right. ??Bilateral pulmonary opacifications due to atelectasis or infiltrate greatest in the right lower lung and throughout the left lung. Left effusion. Referred By: PROVIDER NON-STAFF Interpreted By: Rudy Montaño MD, 07/26/2022 7:27 AM Narrative 07/26/2022 7:29 AM DIRECTOR AIRPORT Procedure(s): XR CHEST PORTABLE Date of service: [...] * (ABNORMAL) C-REACTIVE PROTEIN (07/26/2022 2:38 AM DIRECTOR AIRPORT) C-REACTIVE PROTEIN 12.30(H) <0.80 mg/dL 07/26/2022 3:37 AM DIRECTOR AIRPORT [facility] 07/26/2022 2:38 AM DIRECTOR AIRPORT us Tracy Yo MD LABORATORY Final Result Performing Organization Address [facility] Co de Phone Number [facility] [address] [place] [address], [phone] * (ABNORMAL) SED RATE, ERYTHROCYTE (ESR,WSR) (07/26/2022 2:38 AM DIRECTOR AIRPORT) ESR 45(H) 0 - 15 MM/HR 07/26/2022 3:27 AM DIRECTOR AIRPORT [facility] 07/26/2022 2:38 AM DIRECTOR AIRPORT us Tracy Yo MD LABORATORY Final Result Performing Organization Address [facility] de Phone Number [facility] [address] [place] [address], [phone] * (ABNORMAL) ARTERIAL BLOOD GAS (07/26/2022 2:38 AM DIRECTOR AIRPORT) PH ARTERIAL 7.43 7.35 - 7.45 07/26/2022 3:01 AM [facility] PCO2 37.3 35.0 - 45.0 MMHG 07/26/2022 3:01 AM [facility] PO2 71.8(L) 83.0 - 108.0 MMHG 07/26/2022 3:01 AM DIRECTOR AIRPORT [facility] BICARB ARTERIAL 24.1 22 - 26 MMOL/L 07/26/2022 3:01 AM [facility] TCO2 25.3 23 - 27 MMOL/L 07/26/2022 3:01 AM [facility] BE/BASE EXCESS 0.4 0 - 2 MMOL/L 07/26/2022 3:01 AM [facility] O2 Saturation 93(L) 95 - 98 % 07/26/2022 3:01 AM [facility] 07/26/2022 2:38 AM DIRECTOR AIRPORT Ann Hammond NP LABORATORY Final Result [facility] [address] [place] [address], [phone] * (ABNORMAL) CBC W/DIFF AUTOMATED (07/26/2022 2:38 AM DIRECTOR AIRPORT) WBC 17.5(H) 4.0 - 10.8 x10'3/uL 07/26/2022 3:40 AM [facility] RBC 2.26(L) 4.50 - 6.10 x10'6/uL 07/26/2022 3:40 AM [facility] HGB 7.6(L) 13.0 - 18.0 G/DL 07/26/2022 3:40 AM DIRECTOR AIRPORT [facility] HCT 22.9(L) 37.0 - 52.0 % 07/26/2022 3:40 AM [facility] MCV 101.3(H) 78.0 - 100.0 FL 07/26/2022 3:40 AM [facility] MCH 33.6(H) 27.0 - 31.0 PG 07/26/2022 3:40 AM [facility] MCHC 33.2 33.0 - 36.0 G/DL 07/26/2022 3:40 AM [facility] RDW 13.8 11.5 - 14.5 % 07/26/2022 3:40 AM [facility] PLT 283 150 - 350 x10'3/uL 07/26/2022 3:40 AM [facility] MPV 10.6(H) 7.4 - 10.4 FL 07/26/2022 3:40 AM [facility] ABS. NEUTROPHILS 16.80(H) 1.60 - 8.30 x10'3/uL 07/26/2022 4:48 AM DIRECTOR AIRPORT [facility] ABS. NEUTROPHILS CALCULATED 16.45(H) 1.60 - 7.30 x10'3/uL 07/26/2022 4:48 AM [facility] BANDS 0.18 0.00 - 1.00 x10'3/uL 07/26/2022 4:48 AM [facility] ABS. LYMPHOCYTES 0.53(L) 0.80 - 4.70 x10'3/uL 07/26/2022 4:48 AM DIRECTOR AIRPORT [facility] ABS. MONOCYTES 0.18 0.00 - 1.50 x10'3/uL 07/26/2022 4:48 AM [facility] ABS. EOSINOPHILS 0.00 0.00 - 0.40 x10'3/uL 07/26/2022 4:48 AM [facility] ABS. BASOPHILS 0.00 0.00 - 0.20 x10'3/uL 07/26/2022 4:48 AM [facility] ABS. MYELOCYTES 0.18(H) 0.00 x10'3/uL 07/26/2022 4:48 AM [facility] ABS. NUCLEATED RBC'S 0.18(H) 0.0 x10'3/uL 07/26/2022 4:48 AM [facility] RBC MORPHOLOGY POLYCHROMASIA 022 4:48 AM [facility] Comment: SLIGHT POIKILOCYTOSIS SLIGHT WBC MORPHOLOGY HYPERSEGMENTATION 4:48 AM [facility] Comment: TOXIC GRANULATION VACUOLATED NEUTROPHILS PLT MORPH. NORMAL 07/26/2022 4:48 AM [facility] 07/26/2022 2:38 AM DIRECTOR AIRPORT Ann Hammond NP LABORATORY Final Result [facility] [address] [place] [address], [place] [phone] * (ABNORMAL) LDH, LACTATE DEHYDROGENASE (07/26/2022 2:38 AM DIRECTOR AIRPORT) LDH 265(H) 87 - 241 UNITS/L 07/26/2022 3:37 AM DIRECTOR AIRPORT [facility] Comment:RESULT QUESTIONABLE DUE TO HEMOLYSIS, RECOMMEND RECOLLECTION. 07/26/2022 2:38 AM DIRECTOR AIRPORT Tracy Yo MD LABORATORY Final Result Performing Organization Address [facility] de Phone Number [facility] [address] [place] [address], [place] [phone] * (ABNORMAL) COMPREHENSIVE METABOLIC PANEL (07/26/2022 2:38 AM DIRECTOR AIRPORT) Pathologist [facility] SODIUM S/P/B 135(L) 136 - 145 MMOL/L 07/26/2022 3:37 AM [facility] POTASSIUM S/P/B 4.5 3.5 - 5.1 MMOL/L 07/26/2022 3:37 AM [facility] Comment:SLIGHT HEMOLYSIS, RE SULT MAY BE AFFECTED. CHLORIDE S/P/B 105 98 - 107 MMOL/L 07/26/2022 3:37 AM [facility] CO2 26.8 21.0 - 32.0 MMOL/L 07/26/2022 3:37 AM [facility] GLUCOSE 137(H) 74 - 106 MG/DL 07/26/2022 3:37 AM [facility] BUN 15 7 - 18 MG/DL 07/26/2022 3:37 AM [facility] CREATININE S/P/B 0.66(L) 0.70 - 1.30 MG/DL 07/26/2022 3:37 AM [facility] CALCIUM S/P/B 8.1(L) 8.5 - 10.1 MG/DL 07/26/2022 3:37 AM [facility] BILIRUBIN TOTAL S/P/B 0.2 0.2 - 1.0 MG/DL 07/26/2022 3:37 AM [facility] ALKALINE PHOSPHATASE S/P/B 60 45 - 115 U/L 07/26/2022 3:37 AM [facility] AST 19 15 - 37 U/L 07/26/2022 3:37 AM [facility] ALT 20 16 - 61 U/L 07/26/2022 3:37 AM [facility] TOTAL PROTEIN S/P/B 5.3(L) 6.4 - 8.2 G/DL 07/26/2022 3:37 AM [facility] ALBUMIN S/P/B 1.5(L) 3.4 - 5.0 G/DL 07/26/2022 3:37 AM [facility] ANION GAP 3.2(L) 5.0 - 15.0 MMOL/L 07/26/2022 3:37 AM [facility] OSMOLALITY (CALC) 283 MOSM/KG 022 3:37 AM [facility] Comment:REFERENCE RANGE NOT ESTABLISHED GFR ESTIMATE >90 >90 ML/MIN/1. 73 M2 07/26/2022 3:37 AM [facility] GFR NOTES GFR REFERENCE S: 07/26/2022 3:37 AM [facility] Comment: THE ESTIMATED GFR IS [...] FAILURE: <15 ml/min/1.73 m2 07/26/2022 2:38 AM DIRECTOR AIRPORT Tracy Yo MD LABORATORY Final Result Performing Organization Address City/State/[facility] Co de Phone Number [facility] [address] [place] [address], [phone] * CTA CHEST+ABD+PEL (07/26/2022 12:32 AM DIRECTOR AIRPORT) Anatomical Region Laterality Modality Chest, Abdomen, Pelvis Computed Tomography 07/26/2022 12:5 6 AM DIRECTOR AIRPORT Impressions 07/26/2022 1:23 AM DIRECTOR AIRPORT IMPRESSION: 1. ??Air-fluid level within loculated fluid [...] 07/26/2022 12:56 AM Narrative 07/26/2022 1:23 AM DIRECTOR AIRPORT EXAMINATION: 1. ??CTA Chest with Intravenous Contrast, [...] (ABNORMAL) RETICULOCYTE CT, AUTO (07/25/2022 8:56 PM DIRECTOR AIRPORT) Pathologist [facility] % RETICULOCYTE COUNT 4.0(H) 0.7 - 2.3 % 07/25/2022 9:04 PM DIRECTOR AIRPORT [facility] ABSOLUTE RETICULOCYTE 0.09 0.03 - 0.11 x10'6/uL 07/25/2022 9:04 PM DIRECTOR AIRPORT [facility] IMMATURE RETIC FRACTION 31.8(H) 2.3 - 13.4 % 07/25/2022 9:04 PM DIRECTOR AIRPORT [facility] RETIC HGB 31.9 28.0 - 35.0 PG 07/25/2022 9:04 PM DIRECTOR AIRPORT [facility] 07/25/2022 8:56 PM DIRECTOR AIRPORT us Tracy Yo MD LABORATORY Final Result Performing Organization Address [facility] de Phone Number [facility] [address] [place] [address], [id number] * (ABNORMAL) HEMOGLOBIN AND HEMATOCRIT (07/25/2022 8:56 PM DIRECTOR AIRPORT) [facility] HGB 7.5(L) 13.0 - 18.0 G/DL 07/25/2022 9:04 PM DIRECTOR AIRPORT [facility] HCT 23.2(L) 37.0 - 52.0 % 07/25/2022 9:04 PM DIRECTOR AIRPORT [facility] 07/25/2022 8:56 PM DIRECTOR AIRPORT us Tracy Yo MD LABORATORY Final Result Performing Organization Address [facility] Co de Phone Number [facility] [address] [place] [address], [id number] * STREP PNEUMO AG URINE (07/25/2022 8:31 PM DIRECTOR AIRPORT) [facility] S. PNEUMONIAE URINARY AG NEGATIVE NEGATIVE 07/26/2022 2:26 PM DIRECTOR AIRPORT [facility] Comment: PRESUMPTIVE NEGATIVE FOR PNEUMOCOCCAL PNEUMONIA, SUGGESTING NO CURRENT OR RECENT PNEUMOCOCCAL INFECTION. INFECTION DUE TO STREPTOCOCCUS PNEUMONIA CANNOT BE RULED OUT SINCE THE ANTIGEN PRESENT IN THE SAMPLE MAY BELOW THE DETECTION LIMIT OF THE TEST. SPECIMEN TYPE URINE VOIDED 8:31 PM DIRECTOR AIRPORT [facility] URINE SPECIMEN FROM URETHRA / Unknown 07/25/2022 8:31 PM DIRECTOR AIRPORT Tracy Yo MD MICROBIOLOGY - Notehall L ORDERABLES Final Result Performing Organization Address [facility] de Phone Number [facility] [address] [place] [address], [id number] * LEGIONELLA AG URINE (07/25/2022 8:31 PM DIRECTOR AIRPORT) LEGIONELLA ANTIGEN (URINE) NEGATIVE NEGATIVE 07/26/2022 2:26 PM DIRECTOR AIRPORT [facility] Comment: PRESUMPTIVE NEGATIVE FOR L. PNEUMOPHILA [...] URINE SPECIMEN / Unknown 07/25/2022 8:31 PM DIRECTOR AIRPORT Tracy Yo MD MICROBIOLOGY - Notehall L ORDERABLES Final Result Performing Organization Address [facility] Co de Phone Number [facility] [address] [place] [address], [place] [phone] * BLOOD SMEAR INTERPRETATION BY (07/25/2022 5:23 PM DIRECTOR AIRPORT) CBC PATHOLOGIST COMMENT SENT TO PATHOLOGIST FOR REVIEW 07/25/2022 5:32 PM DIRECTOR AIRPORT [facility] 07/25/2022 5:23 PM DIRECTOR AIRPORT us Tracy Yo MD LABORATORY Final Result Performing Organization Address [facility] Co de Phone Number [facility] [address] [place] [address], [place] [phone] * (ABNORMAL) LDH, LACTATE DEHYDROGENASE (07/25/2022 5:23 PM DIRECTOR AIRPORT) LDH 280(H) 87 - 241 UNITS/L 07/25/2022 5:59 PM DIRECTOR AIRPORT [facility] 07/25/2022 5:23 PM DIRECTOR AIRPORT us Tracy Yo MD LABORATORY Final Result Performing Organization Address [facility] de Phone Number [facility] [address] [place] [address], [id number] * (ABNORMAL) HEMOGLOBIN AND HEMATOCRIT (07/25/2022 5:23 PM DIRECTOR AIRPORT) HGB 8.1(L) 13.0 - 18.0 G/DL 07/25/2022 5:31 PM DIRECTOR AIRPORT [facility] HCT 24.4(L) 37.0 - 52.0 % 07/25/2022 5:31 PM DIRECTOR AIRPORT [facility] 07/25/2022 5:23 PM DIRECTOR AIRPORT us Tracy Yo MD LABORATORY Final Result Performing Organization Address [facility] Co de Phone Number [facility] [address] [place] [address], [place] [phone] * HIV 1 ANTIGEN(S), WITH HIV-1 AND HIV-2 ANTIBODIES (07/25/2022 5:23 PM DIRECTOR AIRPORT) HIV 1/2 AB+ HIV1 P24 AG NON-REACTI VE NON-REACTI VE 07/25/2022 6:53 PM DIRECTOR AIRPORT [facility] Comment:HIV 1 p24 Ag and HIV 1/ HIV 2 Ab not detected. 07/25/2022 5:23 PM DIRECTOR AIRPORT Tracy Yo MD LABORATORY Final Result [facility] [address] [place] [address], [id number] * MYCOPLASMA PNEUMONIAE AB (07/25/2022 5:23 PM DIRECTOR AIRPORT) M. PNEUMONIAE AB IGG <=0.90 <=0.90 07/30/2022 2:29 PM DIRECTOR AIRPORT [employer] Comment: Reference Range: ?<=0.90 ? Negative ? 0.91-1.09 ? Equivocal ?>=1.10 ? Positive A positive IgG result indicates that the patient has antibody to Mycoplasma. It does not differentiate between an active or past infection. The clinical diagnosis must be interpreted in conjunction with the clinical signs and symptoms of the patient. M. PNEUMONIAE AB IGM 463 <770 U/mL 07/30/2022 2:29 PM DIRECTOR AIRPORT [employer] Comment: Reference Range: ?? <770 U/ml [...] symptoms of the patient. Test Performed by [facility], [employer] [facility], [address] [place], [place] Adrián Balderas M.D., Ph.D., Director of Laboratories , [facility] [id number] 07/25/2022 5:23 PM DIRECTOR AIRPORT Tracy Yo MD LABORATORY Final Result Performing Organization Address City/[facility]/ZIP Co de Phone Number [employer] [facility] [address] [place], [place] , [place] [phone] * (ABNORMAL) PROTIME/INR, VENOUS (PROTHROMBIN TIME) (07/25/2022 5:23 PM DIRECTOR AIRPORT) PROTIME 14.6(H) 9.4 - 12.5 SEC 07/25/2022 5:56 PM DIRECTOR AIRPORT [facility] INR 1.3(H) 0.8 - 1.1 07/25/2022 5:56 PM DIRECTOR AIRPORT [facility] 07/25/2022 5:23 PM DIRECTOR AIRPORT Tracy Yo MD LABORATORY Final Result Performing Organization Address [facility]/ZIP Co de Phone Number [facility] [address] [place] [address], [place] [phone] * TYPE & SCREEN (07/25/2022 5:23 PM DIRECTOR AIRPORT) UNITS ORDERED 1 07/25/2022 5:33 PM DIRECTOR AIRPORT [facility] ABO/RH B POSITIVE 07/25/2022 6:36 PM DIRECTOR AIRPORT [facility] ANTIBODY SCREEN NEGATIVE 6:36 PM DIRECTOR AIRPORT [facility] SAMPLE EXPIRATION 07/28/2022,2359 07/25/2022 5:33 PM [facility] BLOOD UNIT NUMBER [id number] 07/27/2022 4:27 AM DIRECTOR AIRPORT [facility] PRODUCT: PC LEUKOPOOR 07/27/2022 4:27 AM DIRECTOR AIRPORT [facility] UNIT DIVISION 00 07/27/2022 4:27 AM DIRECTOR AIRPORT [facility] BLOOD UNIT STATUS TRANSFUSED,FINAL 07/28/2022 2:57 AM [facility] ISSUE DATE/TIME [id number] 022 2:57 AM [facility] PRODUCT CODE [id number] 07/28/2022 2:57 AM DIRECTOR AIRPORT [facility] ABO/RH Unit B POS 07/28/2022 2:57 AM [facility] ABO/RH UNIT ISBT CODE 7300 07/28/2022 2:57 AM [facility] BLOOD UNIT EXPIRATION DATE [id number] 07/28/2022 2:57 AM [facility] TRANSFUSION STATUS OK TO TRANSFUSE 07/27/2022 4:27 AM [facility] CROSSMATCH COMPATIBLE-EXM 07/27/2022 4:27 AM [facility] 07/25/2022 5:23 PM DIRECTOR AIRPORT Tracy Yo MD BLOOD BANK TEST ORDER CHRISTIANA Final Result [facility] [address] [place] [address], [id number] * CULTURE, BACTERIA, BLOOD (07/25/2022 2:17 PM DIRECTOR AIRPORT) SPEC DESCRIPTION BLOOD 07/25/2022 1:55 PM DIRECTOR AIRPORT [facility] SPECIAL REQUESTS NO SPECIAL REQUEST 07/25/2022 1:55 PM DIRECTOR AIRPORT [facility] CULTURE RESULT NO GROWTH 5 DAYS 07/30/2022 5:25 AM [facility] BLOOD SPECIMEN OBTAINED FOR BLOOD CULTURE / Unknown 07/25/2022 2:17 PM DIRECTOR AIRPORT 07/25/2022 2:32 PM DIRECTOR AIRPORT Tracy Yo MD MICROBIOLOGY - GENERA L ORDERABLES Final Result [facility] [address] [place] [address], [id number] * (ABNORMAL) COMPREHENSIVE METABOLIC PANEL (07/25/2022 2:16 PM DIRECTOR AIRPORT) SODIUM S/P/B 137 136 - 145 MMOL/L 07/25/2022 3:00 PM [facility] POTASSIUM S/P/B 3.4(L) 3.5 - 5.1 MMOL/L 07/25/2022 3:00 PM [facility] CHLORIDE S/P/B 106 98 - 107 MMOL/L 07/25/2022 3:00 PM [facility] CO2 24.7 21.0 - 32.0 MMOL/L 07/25/2022 3:00 PM [facility] GLUCOSE 85 74 - 106 MG/DL 07/25/2022 3:00 PM [facility] BUN 17 7 - 18 MG/DL 07/25/2022 3:00 PM [facility] CREATININE S/P/B 0.57(L) 0.70 - 1.30 MG/DL 07/25/2022 3:00 PM [facility] CALCIUM S/P/B 7.8(L) 8.5 - 10.1 MG/DL 07/25/2022 3:00 PM [facility] BILIRUBIN TOTAL S/P/B 0.3 0.2 - 1.0 MG/DL 07/25/2022 3:00 PM [facility] ALKALINE PHOSPHATASE S/P/B 61 45 - 115 U/L 07/25/2022 3:00 PM DIRECTOR AIRPORT [facility] AST 23 15 - 37 U/L 07/25/2022 3:00 PM [facility] ALT 23 16 - 61 U/L 07/25/2022 3:00 PM [facility] TOTAL PROTEIN S/P/B 5.3(L) 6.4 - 8.2 G/DL 07/25/2022 3:00 PM [facility] ALBUMIN S/P/B 1.5(L) 3.4 - 5.0 G/DL 07/25/2022 3:00 PM [facility] ANION GAP 6.3 5.0 - 15.0 MMOL/L 07/25/2022 3:00 PM [facility] OSMOLALITY (CALC) 285 MOSM/KG 022 3:00 PM [facility] Comment:REFERENCE RANGE NOT ESTABLISHED GFR ESTIMATE >90 >90 ML/MIN/1. 73 M2 07/25/2022 3:00 PM [facility] GFR NOTES GFR REFERENCE S: 07/25/2022 3:00 PM [facility] Comment: THE ESTIMATED GFR IS [...] FAILURE: <15 ml/min/1.73 m2 07/25/2022 2:16 PM DIRECTOR AIRPORT Tracy Yo MD LABORATORY Final Result [facility] [address] [place] [address], [id number] * (ABNORMAL) CBC W/DIFF AUTOMATED (07/25/2022 2:16 PM DIRECTOR AIRPORT) [facility] WBC 17.6(H) 4.0 - 10.8 x10'3/uL 07/25/2022 2:26 PM DIRECTOR AIRPORT [facility] RBC 2.07(L) 4.50 - 6.10 x10'6/uL 07/25/2022 2:26 PM DIRECTOR AIRPORT [facility] HGB 7.0(L) 13.0 - 18.0 G/DL 07/25/2022 2:26 PM [facility] HCT 21.0(L) 37.0 - 52.0 % 07/25/2022 2:26 PM [facility] MCV 101.4(H) 78.0 - 100.0 FL 07/25/2022 2:26 PM DIRECTOR AIRPORT [facility] MCH 33.8(H) 27.0 - 31.0 PG 07/25/2022 2:26 PM DIRECTOR AIRPORT [facility] MCHC 33.3 33.0 - 36.0 G/DL 07/25/2022 2:26 PM [facility] RDW 13.6 11.5 - 14.5 % 07/25/2022 2:26 PM DIRECTOR AIRPORT [facility] PLT 260 150 - 350 x10'3/uL 07/25/2022 2:26 PM [facility] MPV 10.8(H) 7.4 - 10.4 FL 07/25/2022 2:26 PM [facility] ABS. NEUTROPHILS 14.78(H) 1.60 - 8.30 x10'3/uL 07/25/2022 2:42 PM [facility] ABS. NEUTROPHILS CALCULATED 13.55(H) 1.60 - 7.30 x10'3/uL 07/25/2022 2:42 PM DIRECTOR AIRPORT [facility] ABS. LYMPHOCYTES 2.29 0.80 - 4.70 x10'3/uL 07/25/2022 2:42 PM DIRECTOR AIRPORT [facility] ABS. MONOCYTES 0.53 0.00 - 1.50 x10'3/uL 07/25/2022 2:42 PM DIRECTOR AIRPORT [facility] ABS. EOSINOPHILS 0.00 0.00 - 0.40 x10'3/uL 07/25/2022 2:42 PM DIRECTOR AIRPORT [facility] ABS. BASOPHILS 0.00 0.00 - 0.20 x10'3/uL 07/25/2022 2:42 PM DIRECTOR AIRPORT [facility] ABS. METAMYELOCYTES 0.70(H) 0.00 x10'3/uL 07/25/2022 2:42 PM DIRECTOR AIRPORT [facility] ABS. MYELOCYTES 0.35(H) 0.00 x10'3/uL 07/25/2022 2:42 PM DIRECTOR AIRPORT [facility] ABS. PROMYELOCYTES 0.18(H) 0.00 x10'3/uL 07/25/2022 2:42 PM DIRECTOR AIRPORT [facility] ABS. NUCLEATED RBC'S 0.00 0.0 x10'3/uL 07/25/2022 2:42 PM DIRECTOR AIRPORT [facility] RBC MORPHOLOGY ANISOCYTOSIS 07/25/20 2:42 PM DIRECTOR AIRPORT [facility] Comment: SLIGHT MACROCYTOSIS MODERATE POIKILOCYTOSIS SLIGHT OVALOCYTES ACANTHOCYTES WBC MORPHOLOGY VACUOLATED NEUTROPHILS 07/25/2022 2:42 PM DIRECTOR AIRPORT [facility] PLT MORPH. NORMAL 07/25/2022 2:42 PM DIRECTOR AIRPORT [facility] 07/25/2022 2:16 PM DIRECTOR AIRPORT Tracy Yo MD LABORATORY Final Result [facility] [address] [place] [address], [phone] * CULTURE, BACTERIA, BLOOD (07/25/2022 2:16 PM DIRECTOR AIRPORT) SPEC DESCRIPTION BLOOD 07/25/20 2:32 PM DIRECTOR AIRPORT [facility] SPECIAL REQUESTS BLOOD-AERO BIC BOTTLE ONLY 07/25/2022 2:32 PM DIRECTOR AIRPORT [facility] CULTURE RESULT NO GROWTH 5 DAYS 07/30/2022 5:25 AM DIRECTOR AIRPORT [facility] BLOOD SPECIMEN OBTAINED FOR BLOOD CULTURE / Unknown 07/25/2022 2:16 PM DIRECTOR AIRPORT 07/25/2022 2:32 PM DIRECTOR AIRPORT Tracy Yo MD MICROBIOLOGY - GENERA L ORDERABLES Final Result Performing Organization Address [facility]/State/ZIP Co de Phone Number [facility] [address] [place] [address], [phone] * Pathology (07/25/2022 12:00 AM DIRECTOR AIRPORT) PATHOLOGY [facility] ? Department of Laboratory Medicine ?[address] ?[place] [address] ? , extension [phone] ? Pathology Report ? Peripheral Smear Report Name: RAY PHILLIPS ? Specimen #: [id number] Age: 9 1955 (Age: 67) ? Location: [facility] Sex: M ?Procedure Date: 07/25/2022 [facility] #: [id number] ?Date Received: 07/27/2022 Date Reported: 07/27/2022 Provider: [...] applicable), interpretation and sign-out were performed at [facility], [address] [facility], [place], [place], [address]. [facility] 07/25/2022 07/27/2022 7:5 8 AM DIRECTOR AIRPORT Comment:Peripheral blood us Tracy Yo MD PATHOLOGY/CYTOLOGY OR DERABLES Final Result [facility] [address] [place] [address], [place] [phone] documented in this encounter Visit Diagnoses Not on filedocumented in this encounter Admitting Diagnoses Diagnosis Respiratory failure (CMS/HCC [facility]) Acute respiratory failure documented in this encounter [...] in 24 hours. Given 08/05/2022 9:02 PM DIRECTOR AIRPORT 650 mg Given 08/04/2022 10:28 PM DIRECTOR AIRPORT 650 mg Given 08/01/2022 9:40 PM DIRECTOR AIRPORT 650 mg albuterol sulfate HFA 108 (90 Base) MCG/ACT inhaler 2 puff 2 puff, Inhalation, Every 4 hours PRN, Wheezing, Shortness of breath, Starting on Sat07/25/22 at 1355, Until Sat08/08/22 at 1357 alteplase (CATHFLO) injection Code/trauma/sedation medication, Starting on Sat07/27/22 at 1034, Until Sat08/08/22 at 1357 Given 07/27/2022 10:34 AM DIRECTOR AIRPORT 2 mg Chest calcium carbonate (TUMS) chewable tablet 500 mg 500 mg, Oral, Daily as needed, Indigestion, Starting on Sat08/04/22 at 1439, Until Sat08/08/22 at 1357 Given 08/04/2022 2:47 PM DIRECTOR AIRPORT 500 mg cefTRIAXone (ROCEPHIN) 2 g in sodium chloride 0.9 % 50 mL IVPB 2 g, Intravenous, at 100 mL/hr, Every 24 hours, First dose on Sat08/06/22 at 1400, Until Discontinued New Bag 08/08/2022 10:55 AM DIRECTOR AIRPORT 2 g 100 mL/hr New Bag 08/07/2022 2:58 PM DIRECTOR AIRPORT 2 g 100 mL/hr New Bag 08/06/2022 1:25 PM DIRECTOR AIRPORT 2 g 100 mL/hr enoxaparin (LOVENOX) 40 MG/0.4ML syringe 40 mg 40 mg, Subcutaneous, Nightly (enoxaparin), First dose on Sat08/03/22 at 2100, Until Discontinued, Administer by deep SubQ injection alternating between the left or right anterolateral and left or right posterolateral abdominal wall. Given 08/07/2022 8:35 PM DIRECTOR AIRPORT 40 mg Right Lower Abdomen Given 08/06/2022 9:35 PM DIRECTOR AIRPORT 40 mg Ri ght Lower Abdomen Given 08/05/2022 8:52 PM DIRECTOR AIRPORT 40 mg Ri ght Lower Abdomen FLUoxetine (PROzac) capsule 20 mg 20 mg, Oral, Daily, First dose on Sat07/25/22 at 1700, Until Discontinued Given 08/08/2022 8:44 AM DIRECTOR AIRPORT 20 mg Given 08/07/2022 8:51 AM DIRECTOR AIRPORT 20 mg Given 08/06/2022 10:03 AM DIRECTOR AIRPORT 20 mg gabapentin (NEURONTIN) capsule 300 mg 300 mg, Oral, 2 times daily, First dose on Sat07/25/22 at 2100, Until Discontinued Given 08/08/2022 8:44 AM DIRECTOR AIRPORT 300 mg Given 08/07/2022 8:35 PM DIRECTOR AIRPORT 300 mg Given 08/07/2022 8:51 AM DIRECTOR AIRPORT 300 mg HYDROcodone-acetaminophen (NORCO) 10-325 MG tablet 1 tablet 1 tablet, Oral, Every 6 hours PRN, Moderate pain (Scale 4 - 7), Severe pain (Scale 8 - 10), Starting on Sat07/25/22 at 1634, Until Sat08/08/22 at 1357, Second line for moderate pain Maximum dose of acetaminophen is 4000 mg from all sources in 24 hours. Given 08/08/2022 6:00 AM DIRECTOR AIRPORT 1 t ablet Given 08/07/2022 8:35 PM DIRECTOR AIRPORT 1 tablet Given 08/07/2022 8:55 AM DIRECTOR AIRPORT 1 tablet influenza virus vaccine (QUAD) injection [...] to first use. Given 08/08/2022 10:59 AM DIRECTOR AIRPORT 1 puff Given 08/08/2022 8:48 AM DIRECTOR AIRPORT 1 puff Given 08/08/2022 2:27 AM DIRECTOR AIRPORT 1 puff lidocaine (XYLOCAINE) 1 % injection SOLN Code/trauma/sedation medication, Starting on Sat07/27/22 at 1016, Until Sat08/08/22 at 1357 Given 07/27/2022 10:16 AM DIRECTOR AIRPORT 8 mLs Chest lidocaine 4 % patch 1 patch 1 patch, Transdermal, Administer over 12 Hours, Every 24 hours, First dose on Sat08/03/22 at 0615, Until Discontinued Patch Applied 08/08/2022 6:01 AM DIRECTOR AIRPORT 1 patch Back Patch Applied 08/07/2022 5:47 AM DIRECTOR AIRPORT 1 patch Back Patch Applied 08/06/2022 5:38 AM DIRECTOR AIRPORT 1 patch Back LORazepam (ATIVAN) tablet 1 mg 1 mg, Oral, 2 times daily PRN, Anxiety, Starting on Sat07/25/22 at 1634, Until Sat08/08/22 at 1357 Given 08/08/2022 10:25 AM DIRECTOR AIRPORT 1 mg Given 08/07/2022 5:13 PM DIRECTOR AIRPORT 1 mg Given 08/07/2022 3:33 AM DIRECTOR AIRPORT 1 mg metroNIDAZOLE (FLAGYL) tablet 500 mg 500 mg, Oral, Every 8 hours scheduled (3 times per day), First dose on Sat07/30/22 at 1430, Until Discontinued Given 08/08/2022 6:00 AM DIRECTOR AIRPORT 500 mg Given 08/07/2022 10:52 PM DIRECTOR AIRPORT 500 mg Given 08/07/2022 2:58 PM DIRECTOR AIRPORT 500 mg morphine (MSIR) tablet 30 mg 30 mg, Oral, Every 8 hours PRN, Moderate pain (Scale 4 - 7), Starting on Sat07/25/22 at 1634, Until Sat08/08/22 at 1357, First line for moderate painIndications:Chronic Pain Given 08/08/2022 10:25 AM DIRECTOR AIRPORT 3 0 mg Given 08/08/2022 2:26 AM DIRECTOR AIRPORT 30 mg Given 08/07/2022 5:15 PM DIRECTOR AIRPORT 30 mg normal saline 0.9 % flush 3-10 mL 3-10 mL, Intravenous, Every 8 hours, First dose on Zulema 08/02/22 at 0945, Until Discontinued, Post-Op Given 08/08/2022 8:48 AM DIRECTOR AIRPORT 10 mLs Given 08/07/2022 10:52 PM DIRECTOR AIRPORT 10 mLs Given 08/06/2022 10:04 AM DIRECTOR AIRPORT 5 mLs normal saline 0.9 % flush 3-10 mL 3-10 mL, Intravenous, As needed, Line care, Starting on Zulema 08/02/22 at 0915, Until Sat08/08/22 at 1357, Post-Op Given 08/02/2022 6:33 PM DIRECTOR AIRPORT 10 mLs ondansetron (ZOFRAN) injection 4 mg 4 mg, Intravenous, Every 8 hours PRN, Nausea, Vomiting, Starting on Sat07/25/22 at 1355, Until Sat08/08/22 at 1357, IV push over 2-5 minutes. polyethylene glycol (GLYCOLAX) packet 17 g 17 g, Oral, 2 times daily, First dose on Zulema 08/02/22 at 0945, Until Discontinued, Until bowel movement, then discontinue, Post-Op Given 08/07/2022 8:35 PM DIRECTOR AIRPORT 17 g Given 08/07/2022 8:51 AM DIRECTOR AIRPORT 17 g Given 08/06/2022 9:37 PM DIRECTOR AIRPORT 17 g senna-docusate (SENOKOT-S) 8.6-50 MG tablet 1 tablet 1 tablet, Oral, Nightly PRN, Constipation, Starting on Zulema 08/02/22 at 0920, Until Sat08/08/22 at 1357, Post-Op Given 08/06/2022 5:43 AM DIRECTOR AIRPORT 1 tablet Given 08/05/2022 5:03 AM DIRECTOR AIRPORT 1 tablet sodium chloride (OCEAN) 0.65 % nasal spray 1 spray 1 spray, Each Nostril, As needed, Dryness, Starting on Sat07/25/22 at 2141, Until Sat08/08/22 at 1357 Given 07/25/2022 11:05 PM DIRECTOR AIRPORT 1 spray traZODone (DESYREL) tablet 100 mg 100 mg, Oral, Nightly at bedtime, First dose on Sat07/25/22 at 2100, Until Discontinued Given 08/07/2022 8:35 PM DIRECTOR AIRPORT 100 mg Given 08/06/2022 9:36 PM DIRECTOR AIRPORT 100 mg Given 08/05/2022 8:52 PM DIRECTOR AIRPORT 100 mg documented in this encounter Active and Recently Administered Medications Times are shown in DIRECTOR AIRPORT. Scheduled Medication Order 08/06/2022 08/07/2022 08/08/2022 ceFEPIme [...] 1430 1458 (New Bag - Provider: Kia Feliciano, ALANNAH)1600 (Infusion Stop Time - Provider: Beata Chavarria [...] RN - Reason: Other - Comment: flushed 0)1136 (Not Given - Provider: Kia Feliciano RN [...] ALANNAH)2034 (Given - Provider: Merary Langley RN) 0847 [...] dose on 07/28/22 at 1130, Until Discontinued 05 (New Bag - Provider: Gadiel Fitch, ALANNAH)0638 [...] at 1357, Post-Op 0543 (Given - Provider: Gdaiel Fitch RN) sodium chloride (OCEAN) 0.65 % nasal spray 1 spray 1 spray, Each Nostril, As needed, Dryness, Starting on Sat07/25/22 at 2141, Until Sat08/08/22 at 1357 documented in this encounter Additional Health Concerns Infection Onset Date Last Indicated Resolved Time COVID-19 Rule Out 07/25/2022 07/25/2022 08/01/2022 12:32 AM DIRECTOR AIRPORT documented as of this encounter Care Teams Blow Torch Burner Relationship Specialty Start Date End Date Joe Tam DO [address] [place] [address] PCP - General FAMILY PRACTICE 07/22/22 documented as of this encounter
--- OUTSIDE RECORDS SUMMARY | 2024-08-20 13:52 | XMS_ITS | Encounter Summary ---
Author Organization [facility] Address [address] [place] [address]. [place] [address] [place] [address] Care Team Providers Care Signal Timer Name Role Phone Unavailable Primary Care Provider Unavailabl e Encounter Details Date Type Department Care Team (Late st Contact Info) Description 07/29/2013 Abstract [facility] [address] [address] Elias Faulkner MD [address] [place] [address] Social History Tobacco Use Types Packs/Day Years Used Date Smoking Tobacco: Never Assessed Sex and Gender Information Value Date Recorded Sex Assigned at Not on file Legal Sex Male 8:52 PM CDT Gender Identity Not on file Sexual Orientation Not on file documented as of this encounter Plan of Treatment Not on file documented as of this encounter Visit Diagnoses Diagnosis alf current use of anticoagulant therapy documented in this encounter
--- OUTSIDE RECORDS SUMMARY | 2024-08-20 13:52 | XMS_ITS | Encounter Summary ---
Author Organization [facility] Address [address] [place] [address]. [place] [address] [place] [address] Care Team Providers Care Car Carder Name Role Phone Unavailable Primary Care Provider Unavailabl e Encounter Details Date Type Department Care Team (Late st Contact Info) Description 02/26/2008 Abstract [facility] [address] [place] [address] Clint Grayson MD [address] [place] [address] Social History Tobacco Use Types [...]
--- OUTSIDE RECORDS SUMMARY | 2024-08-20 13:52 | XMS_ITS | Encounter Summary ---
Author Organization [facility] Address [address] [place] [address]. [place] [address] [place] [address] Care Team Providers Care [place] Manager Name Role Phone Unavailable Primary Care Provider Unavailabl e Encounter Details Date Type Department Care Team (Late st Contact Info) Description 08/16/2007 Abstract [facility] [address] [facility] [place] [address] Clint Grayson MD [address] [place] [address] Social History Tobacco Use Types [...]
--- OUTSIDE RECORDS SUMMARY | 2024-08-20 13:52 | XMS_ITS | Encounter Summary ---
Author Organization [facility] Address [address] [place] [address]. [place] [address] [place] [address] Care Team Providers Care Vat Skimmer Name Role Phone Chaninng Panchal MD Primary Care Provider [phone] Mark Carmichael DO Primary Care Provider [phone] Encounter Details Date Type Department Care Team (Late st Contact Info) Description 02/07/2019 Abstract [facility] [address] [place] [address] , Generic ConversionMD Social History Tobacco Use Types Packs/Day Years [...] Rule Out 07/25/2022 07/25/2022 08/01/2022 12:32 AM SENIOR QA ENGINEER documented as of this encounter Care Teams Vat Skimmer Relationship Specialty Start Date End Date Channing Panchal MD [address] [place] [address] PCP - General INTERNAL MEDICINE 08/17/21 07/21/22 Mark Carmichael DO [address] [place] [address] PCP - General FAMILY PRACTICE 07/22/22 documented as of this encounter
--- OUTSIDE RECORDS SUMMARY | 2024-08-20 13:52 | XMS_ITS | Encounter Summary ---
Author Organization [facility] Address [address] [place] [address]. 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
--- OUTSIDE RECORDS SUMMARY | 2024-08-20 13:52 | XMS_ITS | Encounter Summary ---
Author Organization [facility] Address [address] [place] [address]. [place] [address] [place] [address] Care Team Providers Care Can Piler Name Role Phone Unavailable Primary Care Provider Unavailabl e Encounter Details Date Type Department Care Team (Late st Contact Info) Description 05/21/[address] [facility] [address] [place] [address] Ethan Ponce MD [address] [place] [phone] Social History Tobacco Use Types Packs/Day Years [...] Procedure Name Priority Date/Time Associated Diagnosis Comments H PYLORI UREASE Routine 05/21/2017 9:14 AM CDT documented in this encounter Results * H PYLORI UREASE (05/21/2017 9:14 AM CDT) SPEC DESCRIPTION GASTRIC BIOPSY 05/21/2017 9:33 AM CDT [facility] SPECIAL REQUESTS NO SPECIAL REQUEST 05/21/2017 9:33 AM CDT [facility] DIRECT EXAM PRESUMPTIVE NEGATIVE FOR H. PYLORI 05/21/2017 1:42 PM CDT [facility] GASTRIC BIOPSY SPECIMEN / Unknown 05/21/2017 9:14 AM CDT 05/21/2017 9:35 AM CDT us Generic Conversion Md ROSAS MICROBIOLOGY - GENERAL ORDERABLES Final Result [facility] [address] [place] [address], documented in this encounter Visit Diagnoses Diagnosis Gastritis without bleeding Unspecified gastritis and gastroduodenitis without mention of hemorrhage documented in this encounter
--- OUTSIDE RECORDS SUMMARY | 2024-08-20 13:52 | XMS_ITS | Encounter Summary ---
Author Organization [facility] Address [address] [place] [address]. [place] [address] [place] [address] Care Team Providers Care Principal Clerk Typist Name Role Phone Mark Carmichael DO Primary Care Provider [phone] Encounter Details Date Type Department Care Team (Latest Contact Info) Description 07/25/2022 Travel Social History Tobacco Use Types Packs/Day [...] suspected to have Coronavirus/COVID-19? No / Unsure 07/25/2022 11:16 PM TRAFFIC LINE PAINTER documented as of this encounter Functional Status documented as of this encounter Mental Status * Question Answer Entry Date Author Status Because of a physical, mental, or emotional condition, do you have serious difficulty concentrating, remembering, or making decisions? No 07/25/2022 11:00 PM TRAFFIC LINE PAINTER Nan Vega RN Active documented in this encounter Plan of Treatment Not on file documented as of this encounter Visit Diagnoses Not on filedocumented in this encounter Additional Health Concerns Infection Onset Date Last Indicated Resolved Time COVID-19 Rule Out 07/25/2022 07/25/2022 08/01/2022 12:32 AM TRAFFIC LINE PAINTER documented as of this encounter Care Teams Principal Clerk Typist Relationship Specialty Start Date End Date Mark Carmichael DO [address] [place] [address] PCP - General FAMILY PRACTICE 07/22/22 documented as of this encounter
--- OUTSIDE RECORDS SUMMARY | 2024-08-20 13:52 | XMS_ITS | Encounter Summary ---
Author Organization [facility] Address [address] [place] [address]. [place] [address] [place] [address] Care Team Providers Care Glass Scullion Name Role Phone Unavailable Primary Care Provider Unavailabl e Encounter Details Date Type Department Care Team (Late st Contact Info) Description 11/29/2010 Abstract [facility] [address] [place] [address] Social History Tobacco Use Types Packs/Day Years Used Date Smoking Tobacco: Never Assessed Sex and Gender Information Value Date Recorded Sex Assigned at Not on file Legal Sex Male 8:52 PM CDT Gender Identity Not on file Sexual Orientation Not on file documented as of this encounter Plan of Treatment Not on file documented as of this encounter Visit Diagnoses Diagnosis Chest pain Chest pain, unspecified documented in this encounter
--- OUTSIDE RECORDS SUMMARY | 2024-08-20 13:52 | XMS_ITS | Encounter Summary ---
Author Organization [facility] Address [address] [place] [address]. [place] [address] [place] [address] Care Team Providers Care Extractor Puller Name Role Phone Unavailable Primary Care Provider Unavailabl e Encounter Details Date Type Department Care Team (Late st Contact Info) Description 11/29/[address] [facility] [address] [place] [phone] , Nancy Mcfadden MD Social History Tobacco [...]
--- OUTSIDE RECORDS SUMMARY | 2024-08-20 13:52 | XMS_ITS | Encounter Summary ---
Author Organization [facility] Address [address] [place] [address]. [place] [address] [place] [address] Care Team Providers Care Logistics System Engineer Name Role Phone Mark Carmichael DO Primary Care Provider [phone] Encounter Details Date Type Department Care Team (Latest Contact Info) Description 07/28/2022 Travel Social History Tobacco Use Types Packs/Day [...] Unable to assess 07/28/2022 10: 30 AM STATION GATEMAN documented as of this encounter Functional Status * RETIRED Are you deaf or do you have serious difficulty hearing Answer Date of Assessment Author Status No 07/25/2022 11:00 PM STATION GATEMAN Acti ve * RETIRED Are you blind or do you have serious difficulty seeing, even when wearing glasses? Answer Date of Assessment Author Status No 07/25/2022 11:00 PM STATION GATEMAN Acti ve * Do you have serious difficulty walking or climbing stairs? Answer Date of Assessment Author Status No 07/25/2022 11:00 PM STATION GATEMAN Katie Vega ma, RN Active * Do you have difficulty dressing or bathing? Answer Date of Assessment Author Status No 07/25/2022 11:00 PM STATION GATEMAN Katie Vega ma, RN Active * Because of a physical, mental, or emotional condition, do you have difficulty doing errands alone such as visiting a doctor's office or shopping? Answer Date of Assessment Author Status No 07/25/2022 11:00 PM STATION GATEMAN Katie Vega ma, RN Active documented as of this encounter Mental Status * Because of a physical, mental, or emotional condition, do you have serious difficulty concentrating, remembering, or making decisions? Answer Entry Date Author Status No 07/25/2022 11:00 PM STATION GATEMAN Katie Vega ma, RN Active documented in this encounter Plan of Treatment Not on file documented as of this encounter Goals Goal Patient Goal Type Associated Problems Recent Progress Patient-Stated? Author Family - family caregiver with be involved in care transitions and discharge planning Lifestyle No Angela Dawkins, GEOCHEMICAL LABORATORY TECHNICIAN documented as of this encounter Visit Diagnoses Not on filedocumented in this encounter Additional Health Concerns Infection Onset Date Last Indicated Resolved Time COVID-19 Rule Out 07/25/2022 07/25/2022 08/01/2022 12:32 AM STATION GATEMAN documented as of this encounter Care Teams Logistics System Engineer Relationship Specialty Start Date End Date Mark Carmichael DO [address] [place] [address] PCP - General FAMILY PRACTICE 07/22/22 documented as of this encounter
--- OUTSIDE RECORDS SUMMARY | 2024-08-20 13:52 | XMS_ITS | Encounter Summary ---
Author Organization [facility] Address [address] [place] [address]. [place] [address] [place] [address] Care Team Providers Care Credit Collections Rep Name Role Phone Unavailable Primary Care Provider Unavailabl e Encounter Details Date Type Department Care Team (Late st Contact Info) Description 07/02/2013 Abstract [facility] [address] [place] [address] Jass Hancock MD [address] [facility] [address] [place] [address] Social History Tobacco Use Types Packs/Day Years Used Date Smoking Tobacco: Never Assessed Sex and Gender Information Value Date Recorded Sex Assigned at Not on file Legal Sex Male 8:52 PM CDT Gender Identity Not on file Sexual Orientation Not on file documented as of this encounter Plan of Treatment Not on file documented as of this encounter Visit Diagnoses Diagnosis Septicemia (CMS/HCC [facility]) Unspecified septicemia documented in this encounter
--- OUTSIDE RECORDS SUMMARY | 2024-08-20 13:52 | XMS_ITS | Encounter Summary ---
Author Organization [facility] Address [address] [place] [address]. [place] [address] [place] [address] Care Team Providers Care Painter And Decorator Name Role Phone Unavailable Primary Care Provider Unavailabl e Encounter Details Date Type Department Care Team (Late st Contact Info) Description 05/15/2009 Abstract [facility] [address] [place] [address] [place] [address] Romain Bettencourt MD [address] [place] [address] Social History Tobacco Use Types Packs/Day Years Used Date Smoking Tobacco: Never Assessed Sex and Gender Information Value Date Recorded Sex Assigned at Not on file Legal Sex Male 8:52 PM CDT Gender Identity Not on file Sexual Orientation Not on file documented as of this encounter Plan of Treatment Not on file documented as of this encounter Visit Diagnoses Diagnosis Acute renal failure with other specified pathological lesion in kidney (CMS/HCC) documented in this encounter
--- OUTSIDE RECORDS SUMMARY | 2024-08-20 13:52 | XMS_ITS | Encounter Summary ---
Author Organization [facility] Address [address] [place] [address]. [place] [address] [place] [address] Care Team Providers Care Hospital Chief Financial Officer Name Role Phone Unavailable Primary Care Provider Unavailabl e Encounter Details Date Type Department Care Team (Late st Contact Info) Description 05/24/2001 Abstract [facility] [address] [place] [address] , Generic Conversion, Social History Tobacco Use [...]
--- OUTSIDE RECORDS SUMMARY | 2024-08-20 13:52 | XMS_ITS | Encounter Summary ---
Author Organization [facility] Address [address] [place] [address]. [place] [address] [place] [address] Care Team Providers Care Wrap Turner Name Role Phone Unavailable Primary Care Provider Unavailabl e Encounter Details Date Type Department Care Team (Late st Contact Info) Description 05/07/[address] 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
--- OUTSIDE RECORDS SUMMARY | 2024-08-20 13:52 | XMS_ITS | Encounter Summary ---
Author Organization [facility] Address [address] [place] [address]. [place] [address] [place] [address] Care Team Providers Care Commercial Art Instructor Name Role Phone Unavailable Primary Care Provider Unavailabl e Encounter Details Date Type Department Care Team (Late st Contact Info) Description 11/29/2010 [facility] [address] [place] [address] , Nancy Mcfadden MD Social History Tobacco [...]
--- OUTSIDE RECORDS SUMMARY | 2024-08-20 13:52 | XMS_ITS | Encounter Summary ---
Author Organization [facility] Address [address] [place] [address]. [place] [address] [place] [address] Care Team Providers Care Plug Sorter Name Role Phone Unavailable Primary Care Provider Unavailabl e Encounter Details Date Type Department Care Team (Late st Contact Info) Description 11/09/[address] [facility] [address] [facility] [place] [address] Clint [place] MD [address] [place] [address] Social History Tobacco Use Types [...]
--- OUTSIDE RECORDS SUMMARY | 2024-08-20 13:52 | XMS_ITS | Encounter Summary ---
Author Organization [facility] Address [address] [place] [address]. [place] [address] [place] [address] Care Team Providers Care Long Line Teamster Name Role Phone Unavailable Primary Care Provider Unavailabl e Encounter Details Date Type Department Care Team (Late st Contact Info) Description 04/17/[address] [facility] [place] [address] [place] [address] [place] [phone] Social History Tobacco Use Types Packs/Day Years [...]
--- OUTSIDE RECORDS SUMMARY | 2024-08-20 13:52 | XMS_ITS | Encounter Summary ---
Author Organization [facility] Address [address] [place] [address]. [place] [address] [place] [address] Care Team Providers Care Flight Hostess Name Role Phone Unavailable Primary Care Provider Unavailabl e Encounter Details Date Type Department Care Team (Late st Contact Info) Description 07/02/2013 Abstract [facility] [address] [place] [address] [place] [address] Can Pack MD [address] [place] [address] Social History Tobacco Use Types Packs/Day Years Used Date Smoking Tobacco: Never Assessed Sex and Gender Information Value Date Recorded Sex Assigned at Not on file Legal Sex Male 8:52 PM CDT Gender Identity Not on file Sexual Orientation Not on file documented as of this encounter Plan of Treatment Not on file documented as of this encounter Visit Diagnoses Diagnosis Cellulitis and abscess of upper arm and forearm documented in this encounter
--- OUTSIDE RECORDS SUMMARY | 2024-08-20 13:52 | XMS_ITS | Encounter Summary ---
Author Organization [facility] Address [address] [place] [address]. [place] [address] [place] [address] Care Team Providers Care Editor In Chief Name Role Phone Unavailable Primary Care Provider Unavailabl e Encounter Details Date Type Department Care Team (Late st Contact Info) Description 07/03/2001 Abstract [facility] [address] [place] [address] , Generic Conversion, Social History Tobacco Use [...]
--- OUTSIDE RECORDS SUMMARY | 2024-08-20 13:52 | XMS_ITS | Encounter Summary ---
Author Organization [facility] Address [address] [place] [address]. [place] [address] [place] [address] Care Team Providers Care Document Design Specialist Name Role Phone Unavailable Primary Care Provider Unavailabl e Encounter Details Date Type Department Care Team (Latest Contact Info) Description 10/20/2009 Abstract [facility] Social History Tobacco Use Types [...]
--- OUTSIDE RECORDS SUMMARY | 2024-08-20 13:52 | XMS_ITS | Encounter Summary ---
Author Organization [facility] Address [address] [place] [address]. [place] [address] [place] [address] Care Team Providers Care Medical Officer Name Role Phone Unavailable Primary Care Provider Unavailabl e Encounter Details Date Type Department Care Team (Late st Contact Info) Description 12/17/2012 Abstract [facility] [address] [place] [address] [place] [address] Can Pack MD [address] [place] [phone] Social History Tobacco Use Types Packs/Day Years Used Date Smoking Tobacco: Never Assessed Sex and Gender Information Value Date Recorded Sex Assigned at Not on file Legal Sex Male 8:52 PM CDT Gender Identity Not on file Sexual Orientation Not on file documented as of this encounter Plan of Treatment Not on file documented as of this encounter Visit Diagnoses Diagnosis Painful respiration documented in this encounter
--- OUTSIDE RECORDS SUMMARY | 2024-08-20 13:52 | XMS_ITS | Encounter Summary ---
Author Organization [facility] Address [address] [place] [address]. [place] [address] [place] [address] Care Team Providers Care Supervisor Lead Burning Name Role Phone Unavailable Primary Care Provider Unavailabl e Encounter Details Date Type Department Care Team (Late st Contact Info) Description 03/17/[address] [facility] [address] [facility] [place] [address] Elias Faulkner MD [address] [facility] [place] [address] Social History Tobacco Use Types Packs/Day Years Used Date Smoking Tobacco: Never Assessed Sex and Gender Information Value Date Recorded Sex Assigned at Not on file Legal Sex Male 8:52 PM CDT Gender Identity Not on file Sexual Orientation Not on file documented as of this encounter Plan of Treatment Not on file documented as of this encounter Visit Diagnoses Diagnosis Low back pain Lumbago documented in this encounter
--- OUTSIDE RECORDS SUMMARY | 2024-08-20 13:52 | XMS_ITS | Encounter Summary ---
Author Organization [facility] Address [address] [place] [address]. [place] [address] [place] [address] Care Team Providers Care Research Geologist Name Role Phone Unavailable Primary Care Provider Unavailabl e Encounter Details Date Type Department Care Team (Late st Contact Info) Description 04/15/[address] [facility] [place] [address] [place] [address] [place] [phone] Social History Tobacco Use Types Packs/Day Years Used Date Smoking Tobacco: Never Assessed Sex and Gender Information Value Date Recorded Sex Assigned at Not on file Legal Sex Male 8:52 PM CDT Gender Identity Not on file Sexual Orientation Not on file documented as of this encounter Plan of Treatment Not on file documented as of this encounter Visit Diagnoses Diagnosis Personal history of malignant neoplasm of bladder documented in this encounter
--- OUTSIDE RECORDS SUMMARY | 2024-08-20 13:52 | XMS_ITS | Encounter Summary ---
Author Organization [facility] Address [address] [place] [address]. [place] [address] [place] [address] Care Team Providers Care Church Organist Name Role Phone Unavailable Primary Care Provider Unavailabl e Encounter Details Date Type Department Care Team (Late st Contact Info) Description 11/09/2010 Abstract [facility] [address] [place] [address] , Nancy Mcfadden MD Social History Tobacco [...]
--- OUTSIDE RECORDS SUMMARY | 2024-08-20 13:52 | XMS_ITS | Encounter Summary ---
Author Organization [facility] Address [address] [place] [address]. [place] [address] [place] [address] Care Team Providers Care Certification And Selection Specialist Name Role Phone Unavailable Primary Care Provider Unavailabl e Encounter Details Date Type Department Care Team (Late st Contact Info) Description 11/15/[address] 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
--- OUTSIDE RECORDS SUMMARY | 2024-08-20 13:53 | XMS_ITS | Encounter Summary ---
Author Organization [facility] Address [address] [place] [address]. [place] [address] [place] [address] Care Team Providers Care Coil Winder Strap Name Role Phone Unavailable Primary Care Provider Unavailabl e Encounter Details Date Type Department Care Team (Late st Contact Info) Description 12/27/1999 Abstract [facility] [address] [place] [address] , Generic Conversion, Social History Tobacco Use [...]
--- OUTSIDE RECORDS SUMMARY | 2024-08-20 13:53 | XMS_ITS | Encounter Summary ---
Author Organization [facility] Address [address] [place] [address]. [place] [address] [place] [address] Care Team Providers Care Lighting Fixtures Decorator Name Role Phone Unavailable Primary Care Provider Unavailabl e Encounter Details Date Type Department Care Team (Late st Contact Info) Description 03/01/2000 Abstract [facility] [address] [place] [address] , Generic Conversion, Social History Tobacco Use [...]
--- OUTSIDE RECORDS SUMMARY | 2024-08-20 13:53 | XMS_ITS | Encounter Summary ---
Author Organization [facility] Address [address] [place] [address]. [place] [address] [place] [address] Care Team Providers Care Billet Shearer Name Role Phone Unavailable Primary Care Provider Unavailabl e Encounter Details Date Type Department Care Team (Late st Contact Info) Description 02/06/1999 Abstract [facility] [address] [place] [address] , Generic Conversion, Social History Tobacco Use [...]
--- OUTSIDE RECORDS SUMMARY | 2024-08-20 13:53 | XMS_ITS | Encounter Summary ---
Author Organization [facility] Address [address] [place] [address]. [place] [address] [place] [address] Care Team Providers Care Sound Technician Supervisor Name Role Phone Unavailable Primary Care Provider Unavailabl e Encounter Details Date Type Department Care Team (Late st Contact Info) Description 11/03/2000 Abstract [facility] [address] [place] [address] , Generic Conversion, Social History Tobacco Use [...]
--- OUTSIDE RECORDS SUMMARY | 2024-08-20 13:53 | XMS_ITS | Encounter Summary ---
Author Organization [facility] Address [address] [place] [address]. [place] [address] [place] [address] Care Team Providers Care Drawer Fitter Name Role Phone Unavailable Primary Care Provider Unavailabl e Encounter Details Date Type Department Care Team (Late st Contact Info) Description 01/13/2000 Abstract [facility] [address] [place] [address] , Generic Conversion, Social History Tobacco Use [...]
--- OUTSIDE RECORDS SUMMARY | 2024-08-20 13:53 | XMS_ITS | Encounter Summary ---
Author Organization [facility] Address [address] [place] [address]. [place] [address] [place] [address] Care Team Providers Care Equipment Services Associate Name Role Phone Unavailable Primary Care Provider Unavailabl e Encounter Details Date Type Department Care Team (Late st Contact Info) Description 09/26/2000 Abstract [facility] [address] [place] [address] , Generic Conversion, Social History Tobacco Use [...]
--- OUTSIDE RECORDS SUMMARY | 2024-08-20 13:53 | XMS_ITS | Encounter Summary ---
Author Organization [facility] Address [address] [place] [address]. [place] [address] [place] [address] Care Team Providers Care Acid Retort Operator Name Role Phone Unavailable Primary Care Provider Unavailabl e Encounter Details Date Type Department Care Team (Latest Contact Info) Description 08/14/1999 Abstract [facility] Social History Tobacco Use Types [...]
--- OUTSIDE RECORDS SUMMARY | 2024-08-20 13:53 | XMS_ITS | Encounter Summary ---
Author Organization [facility] Address [address] [place] [address]. [place] [address] [place] [address] Care Team Providers Care Radiology Therapist Name Role Phone Unavailable Primary Care Provider Unavailabl e Encounter Details Date Type Department Care Team (Late st Contact Info) Description 03/03/1998 Abstract [facility] [address] [place] [address] , Generic Conversion, Social History Tobacco Use [...]
--- OUTSIDE RECORDS SUMMARY | 2024-08-20 13:53 | XMS_ITS | Encounter Summary ---
Author Organization [facility] Address [address] [place] [address]. [place] [address] [place] [address] Care Team Providers Care Patient Registration Manager Name Role Phone Unavailable Primary Care Provider Unavailabl e Encounter Details Date Type Department Care Team (Late st Contact Info) Description 09/16/1998 Abstract [facility] [address] [place] [address] , Generic Conversion, Social History Tobacco Use [...]
--- OUTSIDE RECORDS SUMMARY | 2024-08-20 13:53 | XMS_ITS | Encounter Summary ---
Author Organization [facility] Address [address] [place] [address]. [place] [address] [place] [address] Care Team Providers Care Manager Practice Name Role Phone Unavailable Primary Care Provider Unavailabl e Encounter Details Date Type Department Care Team (Late st Contact Info) Description 02/22/2001 Abstract SFL CONVERSION [address] [place] [address] , Generic Conversion, Social History Tobacco Use [...]
--- OUTSIDE RECORDS SUMMARY | 2024-08-20 13:53 | XMS_ITS | Encounter Summary ---
Author Organization [facility] Address [address] [place] [address]. [place] [address] [place] [address] Care Team Providers Care Stapler Coil Unit Name Role Phone Unavailable Primary Care Provider Unavailabl e Encounter Details Date Type Department Care Team (Late st Contact Info) Description 02/06/2001 Abstract SFL CONVERSION [address] [place] [address] , Generic Conversion, Social History Tobacco Use [...]
--- OUTSIDE RECORDS SUMMARY | 2024-08-20 13:53 | XMS_ITS | Encounter Summary ---
Author Organization [facility] Address [address] [place] [address]. [place] [address] [place] [address] Care Team Providers Care Journeyman Powerhouse Operator Name Role Phone Unavailable Primary Care Provider Unavailabl e Encounter Details Date Type Department Care Team (Late st Contact Info) Description 04/17/1999 Abstract SFL CONVERSION [address] [place] [address] , Generic Conversion, Social History Tobacco Use [...]
--- OUTSIDE RECORDS SUMMARY | 2024-08-20 13:53 | XMS_ITS | Encounter Summary ---
Author Organization [facility] Address [address] [place] [address]. [place] [address] [place] [address] Care Team Providers Care Hearing Aid Repair Technician Name Role Phone Unavailable Primary Care Provider Unavailabl e Encounter Details Date Type Department Care Team (Late st Contact Info) Description 12/25/1999 Abstract SFL CONVERSION [address] [place] [address] , Generic Conversion, Social History Tobacco Use [...]
--- OUTSIDE RECORDS SUMMARY | 2024-08-20 13:53 | XMS_ITS | Encounter Summary ---
Author Organization [facility] Address [address] [place] [address]. [place] [address] [place] [address] Care Team Providers Care Cut Off Operator Scorer Name Role Phone Unavailable Primary Care Provider Unavailabl e Encounter Details Date Type Department Care Team (Late st Contact Info) Description 12/07/1999 Abstract SFL CONVERSION [address] [place] [address] , Generic Conversion, Social History Tobacco Use [...]
--- OUTSIDE RECORDS SUMMARY | 2024-08-20 13:53 | XMS_ITS | Encounter Summary ---
Author Organization [facility] Address [address] [place] [address]. [place] [address] [place] [address] Care Team Providers Care Offset Press Assistant Name Role Phone Unavailable Primary Care Provider Unavailabl e Encounter Details Date Type Department Care Team (Late st Contact Info) Description 01/02/2001 Abstract SFL CONVERSION [address] [place] [address] , Generic Conversion, Social History Tobacco Use [...]
--- OUTSIDE RECORDS SUMMARY | 2024-08-20 13:53 | XMS_ITS | Encounter Summary ---
Author Organization [facility] Address [address] [place] [address]. [place] [address] [place] [address] Care Team Providers Care Engine House Helper Name Role Phone Unavailable Primary Care Provider Unavailabl e Encounter Details Date Type Department Care Team (Late st Contact Info) Description 02/28/2000 Abstract SFL CONVERSION [address] [place] [address] , Generic Conversion, Social History Tobacco Use [...]
--- OUTSIDE RECORDS SUMMARY | 2024-08-20 13:53 | XMS_ITS | Encounter Summary ---
Author Organization [facility] Address [address] [place] [address]. [place] [address] [place] [address] Care Team Providers Care Auto Parts Manager Name Role Phone Unavailable Primary Care Provider Unavailabl e Encounter Details Date Type Department Care Team (Late st Contact Info) Description 03/28/2000 Abstract SFL CONVERSION [address]15 [place] [address] , Generic Conversion, Social History Tobacco Use [...]
--- OUTSIDE RECORDS SUMMARY | 2024-08-20 13:53 | XMS_ITS | Encounter Summary ---
Author Organization [facility] Address [address] [place] [address]. [place] [address] [place] [address] Care Team Providers Care Roller Mill Tender Name Role Phone Unavailable Primary Care Provider Unavailabl e Encounter Details Date Type Department Care Team (Late st Contact Info) Description 05/21/2000 Abstract SFL CONVERSION [address]15 [place] [address] , Generic Conversion, Social History Tobacco Use [...]
--- OUTSIDE RECORDS SUMMARY | 2024-08-20 13:53 | XMS_ITS | Encounter Summary ---
Author Organization [facility] Address [address] [place] [address]. [place] [address] [place] [address] Care Team Providers Care Taker Off Braker Machine Name Role Phone Unavailable Primary Care Provider Unavailabl e Encounter Details Date Type Department Care Team (Late st Contact Info) Description 06/03/1998 Abstract SFL CONVERSION [address] [place] [address] , Generic Conversion, Social History Tobacco Use [...]
--- OUTSIDE RECORDS SUMMARY | 2024-08-20 13:53 | XMS_ITS | Encounter Summary ---
Author Organization [facility] Address [address] [place] [address]. [place] [address] [place] [address] Care Team Providers Care Broom Machine Operator Name Role Phone Unavailable Primary Care Provider Unavailabl e Encounter Details Date Type Department Care Team (Late st Contact Info) Description 12/11/1999 Abstract SFL CONVERSION [address]15 [place] [address] , Generic Conversion, Social History Tobacco Use [...]
--- OUTSIDE RECORDS SUMMARY | 2024-08-20 13:53 | XMS_ITS | Encounter Summary ---
Author Organization [facility] Address [address] [place] [address]. [place] [address] [place] [address] Care Team Providers Care Facility Sales And Admin Name Role Phone Unavailable Primary Care Provider Unavailabl e Encounter Details Date Type Department Care Team (Late st Contact Info) Description 11/10/2000 Abstract SFL CONVERSION [address] [place] [address] , Generic Conversion, Social History Tobacco Use [...]
--- OUTSIDE RECORDS SUMMARY | 2024-08-20 13:53 | XMS_ITS | Encounter Summary ---
Author Organization [facility] Address [address] [place] [address]. [place] [address] [place] [address] Care Team Providers Care Chimney Repairer Name Role Phone Unavailable Primary Care Provider Unavailabl e Encounter Details Date Type Department Care Team (Late st Contact Info) Description 03/14/2000 Abstract SFL CONVERSION [address] [place] [address] , Generic Conversion, Social History Tobacco Use [...]
--- OUTSIDE RECORDS SUMMARY | 2024-08-20 13:53 | XMS_ITS | Encounter Summary ---
Author Organization [facility] Address [address] [place] [address]. [place] [address] [place] [address] Care Team Providers Care Business Analyst Name Role Phone Unavailable Primary Care Provider Unavailabl e Encounter Details Date Type Department Care Team (Late st Contact Info) Description 05/02/1999 Abstract SFL CONVERSION [address]15 [place] [address] , Generic Conversion, Social History Tobacco Use [...]
--- OUTSIDE RECORDS SUMMARY | 2024-08-20 13:53 | XMS_ITS | Encounter Summary ---
Author Organization [facility] Address [address] [place] [address]. [place] [address] [place] [address] Care Team Providers Care Size Tester Name Role Phone Unavailable Primary Care Provider Unavailabl e Encounter Details Date Type Department Care Team (Late st Contact Info) Description 03/01/2000 Abstract SFL CONVERSION [address]15 [place] [address] , Generic Conversion, Social History Tobacco Use [...]
--- OUTSIDE RECORDS SUMMARY | 2024-08-20 13:53 | XMS_ITS | Encounter Summary ---
Author Organization [facility] Address [address] [place] [address]. [place] [address] [place] [address] Care Team Providers Care Delicatessen Store Manager Name Role Phone Unavailable Primary Care Provider Unavailabl e Encounter Details Date Type Department Care Team (Late st Contact Info) Description 12/14/1999 Abstract SFL CONVERSION [address]15 [place] [address] , Generic Conversion, Social History Tobacco Use [...]
--- OUTSIDE RECORDS SUMMARY | 2024-08-20 13:53 | XMS_ITS | Encounter Summary ---
Author Organization [facility] Address [address] [place] [address]. [place] [address] [place] [address] Care Team Providers Care Crotch Piece Baster Name Role Phone Unavailable Primary Care Provider Unavailabl e Encounter Details Date Type Department Care Team (Late st Contact Info) Description 10/27/1998 Abstract SFL CONVERSION 1215 [place] [address] , Generic Conversion, Social History Tobacco Use [...]
--- OUTSIDE RECORDS SUMMARY | 2024-08-20 13:53 | XMS_ITS | Encounter Summary ---
Author Organization [facility] Address [address] [place] [address]. [place] [address] [place] [address] Care Team Providers Care Wet End Helper Name Role Phone Unavailable Primary Care Provider Unavailabl e Encounter Details Date Type Department Care Team (Late st Contact Info) Description 02/19/1998 Abstract SFL CONVERSION [address]15 [place] [address] , Generic Conversion, Social History Tobacco Use [...]
--- OUTSIDE RECORDS SUMMARY | 2024-08-20 13:53 | XMS_ITS | Encounter Summary ---
Author Organization [facility] Address [address] [place] [address]. [place] [address] [place] [address] Care Team Providers Care Manager Ed Name Role Phone Unavailable Primary Care Provider Unavailabl e Encounter Details Date Type Department Care Team (Late st Contact Info) Description 10/13/1999 Abstract SFL CONVERSION [address] [place] [address] , Generic Conversion, Social History Tobacco Use [...]
--- OUTSIDE RECORDS SUMMARY | 2024-08-20 13:53 | XMS_ITS | Encounter Summary ---
Author Organization [facility] Address [address] [place] [address]. [place] [address] [place] [address] Care Team Providers Care Storage Garage Manager Name Role Phone Unavailable Primary Care Provider Unavailabl e Encounter Details Date Type Department Care Team (Late st Contact Info) Description 04/05/2000 Abstract SFL CONVERSION [address]15 [place] [address] , Generic Conversion, Social History Tobacco Use [...]
--- OUTSIDE RECORDS SUMMARY | 2024-08-20 13:53 | XMS_ITS | Encounter Summary ---
Author Organization [facility] Address [address] [place] [address]. [place] [address] [place] [address] Care Team Providers Care Addiction Social Worker Name Role Phone Unavailable Primary Care Provider Unavailabl e Encounter Details Date Type Department Care Team (Late st Contact Info) Description 06/27/2000 Abstract SFL CONVERSION [address] [place] [address] , Generic Conversion, Social History Tobacco Use [...]
--- OUTSIDE RECORDS SUMMARY | 2024-08-20 13:53 | XMS_ITS | Encounter Summary ---
Author Organization [facility] Address [address] [place] [address]. [place] [address] [place] [address] Care Team Providers Care Treatment Supervisor Name Role Phone Unavailable Primary Care Provider Unavailabl e Encounter Details Date Type Department Care Team (Late st Contact Info) Description 01/20/1998 Abstract SFL CONVERSION [address] [place] [address] , Generic Conversion, Social History Tobacco Use [...]
--- OUTSIDE RECORDS SUMMARY | 2024-08-20 13:53 | XMS_ITS | Encounter Summary ---
Author Organization [facility] Address [address] [place] [address]. [place] [address] [place] [address] Care Team Providers Care Prune Washer Name Role Phone Unavailable Primary Care Provider Unavailabl e Encounter Details Date Type Department Care Team (Late st Contact Info) Description 05/24/2000 Abstract SFL CONVERSION [address]15 [place] [address] , Generic Conversion, Social History Tobacco Use [...]
--- OUTSIDE RECORDS SUMMARY | 2024-08-20 13:53 | XMS_ITS | Encounter Summary ---
Author Organization [facility] Address [address] [place] [address]. [place] [address] [place] [address] Care Team Providers Care Net Developer Programmer Name Role Phone Unavailable Primary Care Provider Unavailabl e Encounter Details Date Type Department Care Team (Late st Contact Info) Description 11/23/1998 Abstract SFL CONVERSION [address]15 [place] [address] , Generic Conversion, Social History Tobacco Use [...]
--- OUTSIDE RECORDS SUMMARY | 2024-08-20 13:53 | XMS_ITS | Encounter Summary ---
Author Organization [facility] Address [address] [place] [address]. [place] [address] [place] [address] Care Team Providers Care Cat Wagon Operator Name Role Phone Unavailable Primary Care Provider Unavailabl e Encounter Details Date Type Department Care Team (Late st Contact Info) Description 06/02/1999 Abstract SFL CONVERSION [address]15 [place] [address] , Generic Conversion, Social History Tobacco Use [...]
--- OUTSIDE RECORDS SUMMARY | 2024-08-20 13:53 | XMS_ITS | Encounter Summary ---
Author Organization [facility] Address [address] [place] [address]. [place] [address] [place] [address] Care Team Providers Care Dental Assistant Instructor Name Role Phone Unavailable Primary Care Provider Unavailabl e Encounter Details Date Type Department Care Team (Late st Contact Info) Description 01/11/1998 Abstract SFL CONVERSION [address]15 [place] [address] , Generic Conversion, Social History Tobacco Use [...]
--- OUTSIDE RECORDS SUMMARY | 2024-08-20 13:53 | XMS_ITS | Encounter Summary ---
Author Organization [facility] Address [address] [place] [address]. [place] [address] [place] [address] Care Team Providers Care Skid Machine Operator Name Role Phone Unavailable Primary Care Provider Unavailabl e Encounter Details Date Type Department Care Team (Late st Contact Info) Description 12/23/1998 Abstract SFL CONVERSION [address]15 [place] [address] , Generic Conversion, Social History Tobacco Use [...]
--- OUTSIDE RECORDS SUMMARY | 2024-08-20 13:53 | XMS_ITS | Encounter Summary ---
Author Organization [facility] Address [address] [place] [address]. [place] [address] [place] [address] Care Team Providers Care Cloth Boil Off Machine Operator Name Role Phone Unavailable Primary Care Provider Unavailabl e Encounter Details Date Type Department Care Team (Late st Contact Info) Description 04/16/2000 Abstract SFL CONVERSION 1215 [place] [address] , Generic Conversion, Social History Tobacco Use [...]
--- OUTSIDE RECORDS SUMMARY | 2024-08-20 13:53 | XMS_ITS | Encounter Summary ---
Author Organization [facility] Address [address] [place] [address]. [place] [address] [place] [address] Care Team Providers Care Electromechanical Assembler Name Role Phone Unavailable Primary Care Provider Unavailabl e Encounter Details Date Type Department Care Team (Late st Contact Info) Description 10/15/2000 Abstract SFL CONVERSION 1215 [place] [address] , Generic Conversion, Social History Tobacco Use [...]
--- OUTSIDE RECORDS SUMMARY | 2024-08-20 13:53 | XMS_ITS | Encounter Summary ---
Author Organization [facility] Address [address] [place] [address]. [place] [address] [place] [address] Care Team Providers Care Commissioned Police Officer Name Role Phone Unavailable Primary Care Provider Unavailabl e Encounter Details Date Type Department Care Team (Late st Contact Info) Description 01/27/1999 Abstract SFL CONVERSION [address]15 [place] [address] , Generic Conversion, Social History Tobacco Use [...]
--- OUTSIDE RECORDS SUMMARY | 2024-08-20 13:53 | XMS_ITS | Encounter Summary ---
Author Organization [facility] Address [address] [place] [address]. [place] [address] [place] [address] Care Team Providers Care Railroad Car Repairman Name Role Phone Unavailable Primary Care Provider Unavailabl e Encounter Details Date Type Department Care Team (Late st Contact Info) Description 06/11/1999 Abstract SFL CONVERSION [address]15 [place] [address] , Generic Conversion, Social History Tobacco Use [...]
--- OUTSIDE RECORDS SUMMARY | 2024-08-20 13:53 | XMS_ITS | Encounter Summary ---
Author Organization [facility] Address [address] [place] [address]. [place] [address] [place] [address] Care Team Providers Care Division Traffic Superintendent Name Role Phone Unavailable Primary Care Provider Unavailabl e Encounter Details Date Type Department Care Team (Late st Contact Info) Description 02/09/1998 Abstract SFL CONVERSION 1215 [place] [address] , Generic Conversion, Social History Tobacco Use [...]
--- OUTSIDE RECORDS SUMMARY | 2024-08-20 13:53 | XMS_ITS | Encounter Summary ---
Author Organization [facility] Address [address] [place] [address]. [place] [address] [place] [address] Care Team Providers Care Bar Assistant Name Role Phone Unavailable Primary Care Provider Unavailabl e Encounter Details Date Type Department Care Team (Late st Contact Info) Description 04/03/1999 Abstract SFL CONVERSION [address] [place] [address] , Generic Conversion, Social History Tobacco Use [...]
--- OUTSIDE RECORDS SUMMARY | 2024-08-20 13:53 | XMS_ITS | Encounter Summary ---
Author Organization [facility] Address [address] [place] [address]. [place] [address] [place] [address] Care Team Providers Care Adventure Guide Name Role Phone Unavailable Primary Care Provider Unavailabl e Encounter Details Date Type Department Care Team (Late st Contact Info) Description 05/11/1998 Abstract SFL CONVERSION [address]15 [place] [address] , Generic Conversion, Social History Tobacco Use [...]
--- OUTSIDE RECORDS SUMMARY | 2024-08-20 13:54 | XMS_ITS | Encounter Summary ---
Author Organization [facility] Address [address] [place] [address]. [place] [address] [place] [address] Care Team Providers Care Want Ad Clerk Name Role Phone Unavailable Primary Care Provider Unavailabl e Encounter Details Date Type Department Care Team (Late st Contact Info) Description 12/25/1997 Abstract SFL CONVERSION 1215 [place] [address] , Generic Conversion, Social History Tobacco Use [...]
--- OUTSIDE RECORDS SUMMARY | 2024-08-20 13:54 | XMS_ITS | Encounter Summary ---
Author Organization [facility] Address [address] [place] [address]. [place] [address] [place] [address] Care Team Providers Care Appeals Examiner Name Role Phone Unavailable Primary Care Provider Unavailabl e Encounter Details Date Type Department Care Team (Late st Contact Info) Description 12/06/1997 Abstract SFL CONVERSION [address] [place] [address] , Generic Conversion, Social History Tobacco Use [...]
--- OUTSIDE RECORDS SUMMARY | 2024-08-20 13:54 | XMS_ITS | Encounter Summary ---
Author Organization [facility] Address [address] [place] [address]. [place] [address] [place] [address] Care Team Providers Care Bullet Casting Operator Name Role Phone Unavailable Primary Care Provider Unavailabl e Encounter Details Date Type Department Care Team (Late st Contact Info) Description 06/30/1997 Abstract SFL CONVERSION [address] [place] [address] , Generic Conversion, Social History Tobacco Use [...]
--- OUTSIDE RECORDS SUMMARY | 2024-08-20 13:54 | XMS_ITS | Encounter Summary ---
Author Organization [facility] Address [address] [place] [address]. [place] [address] [place] [address] Care Team Providers Care Donor Floor Technician Name Role Phone Unavailable Primary Care Provider Unavailabl e Encounter Details Date Type Department Care Team (Late st Contact Info) Description 01/04/1998 Abstract SFL CONVERSION [address]15 [place] [address] , Generic Conversion, Social History Tobacco Use [...]
--- OUTSIDE RECORDS SUMMARY | 2024-08-20 13:54 | XMS_ITS | Encounter Summary ---
Author Organization [facility] Address [address] [place] [address]. [place] [address] [place] [address] Care Team Providers Care Physical Chemistry Teacher Name Role Phone Unavailable Primary Care Provider Unavailabl e Encounter Details Date Type Department Care Team (Late st Contact Info) Description 10/05/1997 Abstract SFL CONVERSION [address]15 [place] [address] , Generic Conversion, Social History Tobacco Use [...]
--- OUTSIDE RECORDS SUMMARY | 2024-08-20 13:54 | XMS_ITS | Encounter Summary ---
Author Organization [facility] Address [address] [place] [address]. [place] [address] [place] [address] Care Team Providers Care Psych Nurse Name Role Phone Unavailable Primary Care Provider Unavailabl e Encounter Details Date Type Department Care Team (Late st Contact Info) Description 01/30/1997 Abstract SFL CONVERSION [address]15 [place] [address] , Generic Conversion, Social History Tobacco Use [...]
--- OUTSIDE RECORDS SUMMARY | 2024-08-20 13:54 | XMS_ITS | Encounter Summary ---
Author Organization [facility] Address [address] [place] [address]. [place] [address] [place] [address] Care Team Providers Care Manager Market Development Name Role Phone Unavailable Primary Care Provider Unavailabl e Encounter Details Date Type Department Care Team (Late st Contact Info) Description 05/26/1992 Abstract SJS CONVERSION [address] [place] [address] , Generic ConversionMD Social History Tobacco Use [...]
--- OUTSIDE RECORDS SUMMARY | 2024-08-20 13:54 | XMS_ITS | Encounter Summary ---
Author Organization [facility] Address [address] [place] [address]. [place] [address] [place] [address] Care Team Providers Care Grocery Deliverer Name Role Phone Unavailable Primary Care Provider Unavailabl e Encounter Details Date Type Department Care Team (Late st Contact Info) Description 09/29/1997 Abstract SFL CONVERSION [address] [place] [address] , Generic Conversion, Social History Tobacco Use [...]
--- OUTSIDE RECORDS SUMMARY | 2024-08-20 13:54 | XMS_ITS | Encounter Summary ---
Author Organization [facility] Address [address] [place] [address]. [place] [address] [place] [address] Care Team Providers Care Blueprint Cutter Name Role Phone Unavailable Primary Care Provider Unavailabl e Encounter Details Date Type Department Care Team (Late st Contact Info) Description 11/05/1994 Abstract SFL CONVERSION [address]15 [place] [address] , Generic Conversion, Social History Tobacco Use [...]
--- OUTSIDE RECORDS SUMMARY | 2024-08-20 13:54 | XMS_ITS | Encounter Summary ---
Author Organization [facility] Address [address] [place] [address]. [place] [address] [place] [address] Care Team Providers Care Grief Counselor Name Role Phone Unavailable Primary Care Provider Unavailabl e Encounter Details Date Type Department Care Team (Late st Contact Info) Description 10/20/1994 Abstract SFL CONVERSION [address] [place] [address] , Generic Conversion, Social History Tobacco Use [...]
--- OUTSIDE RECORDS SUMMARY | 2024-08-20 13:54 | XMS_ITS | Encounter Summary ---
Author Organization [facility] Address [address] [place] [address]. [place] [address] [place] [address] Care Team Providers Care Table Setter Name Role Phone Unavailable Primary Care Provider Unavailabl e Encounter Details Date Type Department Care Team (Late st Contact Info) Description 07/20/1997 Abstract SFL CONVERSION [address] [place] [address] , Generic Conversion, Social History Tobacco Use [...]
--- OUTSIDE RECORDS SUMMARY | 2024-08-20 13:54 | XMS_ITS | Encounter Summary ---
Author Organization [facility] Address [address] [place] [address]. [place] [address] [place] [address] Care Team Providers Care Security Public Safety Officer Name Role Phone Unavailable Primary Care Provider Unavailabl e Encounter Details Date Type Department Care Team (Late st Contact Info) Description 01/26/1997 Abstract SFL CONVERSION [address] [place] [address] , Generic Conversion, Social History Tobacco Use [...]
--- OUTSIDE RECORDS SUMMARY | 2024-08-20 13:54 | XMS_ITS | Encounter Summary ---
Author Organization [facility] Address [address] [place] [address]. [place] [address] [place] [address] Care Team Providers Care Batch Mixing Truck Driver Name Role Phone Unavailable Primary Care Provider Unavailabl e Encounter Details Date Type Department Care Team (Late st Contact Info) Description 09/09/1997 Abstract SFL CONVERSION [address] [place] [address] , Generic Conversion, Social History Tobacco Use [...]
--- OUTSIDE RECORDS SUMMARY | 2024-08-20 13:54 | XMS_ITS | Encounter Summary ---
Author Organization [facility] Address [address] [place] [address]. [place] [address] [place] [address] Care Team Providers Care Animal Biologist Name Role Phone Unavailable Primary Care Provider Unavailabl e Encounter Details Date Type Department Care Team (Late st Contact Info) Description 11/30/1996 Abstract SFL CONVERSION [address] [place] [address] , Generic Conversion, Social History Tobacco Use [...]
--- OUTSIDE RECORDS SUMMARY | 2024-08-20 13:54 | XMS_ITS | Encounter Summary ---
Author Organization [facility] Address [address] [place] [address]. [place] [address] [place] [address] Care Team Providers Care Mechanism Inspector Name Role Phone Unavailable Primary Care Provider Unavailabl e Encounter Details Date Type Department Care Team (Late st Contact Info) Description 12/31/1997 Abstract SFL CONVERSION [address] [place] [address] , Generic Conversion, Social History Tobacco Use [...]
--- OUTSIDE RECORDS SUMMARY | 2024-08-20 13:54 | XMS_ITS | Encounter Summary ---
Author Organization [facility] Address [address] [place] [address]. [place] [address] [place] [address] Care Team Providers Care Wafer Abrading Machine Tender Name Role Phone Unavailable Primary Care Provider Unavailabl e Encounter Details Date Type Department Care Team (Late st Contact Info) Description 06/02/1992 Abstract SJS CONVERSION [address] [place] [address] , Generic ConversionMD Social History Tobacco Use [...]
--- OUTSIDE RECORDS SUMMARY | 2024-08-20 13:54 | XMS_ITS | Encounter Summary ---
Author Organization [facility] Address [address] [place] [address]. [place] [address] [place] [address] Care Team Providers Care Tool And Production Planner Name Role Phone Unavailable Primary Care Provider Unavailabl e Encounter Details Date Type Department Care Team (Late st Contact Info) Description 06/16/1997 Abstract SFL CONVERSION [address] [place] [address] , Generic Conversion, Social History Tobacco Use [...]
--- OUTSIDE RECORDS SUMMARY | 2024-08-20 13:54 | XMS_ITS | Encounter Summary ---
Author Organization [facility] Address [address] [place] [address]. [place] [address] [place] [address] Care Team Providers Care Dental Chair Assembler Name Role Phone Unavailable Primary Care Provider Unavailabl e Encounter Details Date Type Department Care Team (Late st Contact Info) Description 05/17/1997 Abstract SFL CONVERSION [address] [place] [address] , Generic Conversion, Social History Tobacco Use [...]
--- OUTSIDE RECORDS SUMMARY | 2024-08-20 13:54 | XMS_ITS | Encounter Summary ---
Author Organization [facility] Address [address] [place] [address]. [place] [address] [place] [address] Care Team Providers Care Column Precaster Name Role Phone Unavailable Primary Care Provider Unavailabl e Encounter Details Date Type Department Care Team (Late st Contact Info) Description 08/29/1997 Abstract SFL CONVERSION [address] [place] [address] , Generic Conversion, Social History Tobacco Use [...]
--- OUTSIDE RECORDS SUMMARY | 2024-08-20 13:54 | XMS_ITS | Encounter Summary ---
Author Organization [facility] Address [address] [place] [address]. [place] [address] [place] [address] Care Team Providers Care General Foundry Worker Name Role Phone Unavailable Primary Care Provider Unavailabl e Encounter Details Date Type Department Care Team (Late st Contact Info) Description 01/10/1998 Abstract SFL CONVERSION [address] [place] [address] , Generic Conversion, Social History Tobacco Use [...]
--- OUTSIDE RECORDS SUMMARY | 2024-08-20 13:54 | XMS_ITS | Encounter Summary ---
Author Organization [facility] Address [address] [place] [address]. [place] [address] [place] [address] Care Team Providers Care Assurance Analyst Name Role Phone Unavailable Primary Care Provider Unavailabl e Encounter Details Date Type Department Care Team (Late st Contact Info) Description 09/05/1996 Abstract SFL CONVERSION [address] [place] [address] , Generic Conversion, Social History Tobacco Use [...]
--- OUTSIDE RECORDS SUMMARY | 2024-08-20 13:54 | XMS_ITS | Encounter Summary ---
Author Organization [facility] Address [address] [place] [address]. [place] [address] [place] [address] Care Team Providers Care Elementary School Social Worker Name Role Phone Unavailable Primary Care Provider Unavailabl e Encounter Details Date Type Department Care Team (Late st Contact Info) Description 05/03/1997 Abstract SFL CONVERSION [address] [place] [address] , Generic Conversion, Social History Tobacco Use [...]
--- OUTSIDE RECORDS SUMMARY | 2024-08-20 13:54 | XMS_ITS | Encounter Summary ---
Author Organization [facility] Address [address] [place] [address]. [place] [address] [place] [address] Care Team Providers Care Grizzly Worker Name Role Phone Unavailable Primary Care Provider Unavailabl e Encounter Details Date Type Department Care Team (Late st Contact Info) Description 10/06/1997 Abstract SFL CONVERSION [address] [place] [address] , Generic Conversion, Social History Tobacco Use [...]
--- OUTSIDE RECORDS SUMMARY | 2024-08-20 13:54 | XMS_ITS | Encounter Summary ---
Author Organization [facility] Address [address] [place] [address]. [place] [address] [place] [address] Care Team Providers Care Garage Door Service Technician Name Role Phone Unavailable Primary Care Provider Unavailabl e Encounter Details Date Type Department Care Team (Late st Contact Info) Description 06/08/1997 Abstract SFL CONVERSION [address] [place] [address] , Generic Conversion, Social History Tobacco Use [...]
--- OUTSIDE RECORDS SUMMARY | 2024-08-20 13:54 | XMS_ITS | Encounter Summary ---
Author Organization [facility] Address [address] [place] [address]. [place] [address] [place] [address] Care Team Providers Care Fire Technology Instructor Name Role Phone Unavailable Primary Care Provider Unavailabl e Encounter Details Date Type Department Care Team (Late st Contact Info) Description 10/18/1996 Abstract SFL CONVERSION [address] [place] [address] , Generic Conversion, Social History Tobacco Use [...]
--- OUTSIDE RECORDS SUMMARY | 2024-08-20 13:54 | XMS_ITS | Encounter Summary ---
Author Organization [facility] Address [address] [place] [address]. [place] [address] [place] [address] Care Team Providers Care Petroleum Terminal Plant Operator Name Role Phone Unavailable Primary Care Provider Unavailabl e Encounter Details Date Type Department Care Team (Late st Contact Info) Description 08/13/1997 Abstract SFL CONVERSION [address] [place] [address] , Generic Conversion, Social History Tobacco Use [...]
--- OUTSIDE RECORDS SUMMARY | 2024-08-20 13:54 | XMS_ITS | Encounter Summary ---
Author Organization [facility] Address [address] [place] [address]. [place] [address] [place] [address] Care Team Providers Care Icing Coater Name Role Phone Unavailable Primary Care Provider Unavailabl e Encounter Details Date Type Department Care Team (Late st Contact Info) Description 10/02/1997 Abstract SFL CONVERSION [address] [place] [address] , Generic Conversion, Social History Tobacco Use [...]
--- OUTSIDE RECORDS SUMMARY | 2024-08-20 13:54 | XMS_ITS | Encounter Summary ---
Author Organization [facility] Address [address] [place] [address]. [place] [address] [place] [address] Care Team Providers Care Clinical Lab Clerk Name Role Phone Unavailable Primary Care Provider Unavailabl e Encounter Details Date Type Department Care Team (Late st Contact Info) Description 03/09/1997 Abstract SFL CONVERSION [address] [place] [address] , Generic Conversion, Social History Tobacco Use [...]
--- OUTSIDE RECORDS SUMMARY | 2024-08-20 13:54 | XMS_ITS | Encounter Summary ---
Author Organization [facility] Address [address] [place] [address]. [place] [address] [place] [address] Care Team Providers Care Family Practice Medical Doctor Name Role Phone Unavailable Primary Care Provider Unavailabl e Encounter Details Date Type Department Care Team (Late st Contact Info) Description 09/20/1997 Abstract SFL CONVERSION [address] [place] [address] , Generic Conversion, Social History Tobacco Use [...]
--- OUTSIDE RECORDS SUMMARY | 2024-08-20 13:54 | XMS_ITS | Encounter Summary ---
Author Organization [facility] Address [address] [place] [address]. [place] [address] [place] [address] Care Team Providers Care Reticle Printer Name Role Phone Unavailable Primary Care Provider Unavailabl e Encounter Details Date Type Department Care Team (Late st Contact Info) Description 05/22/1997 Abstract SFL CONVERSION [address] [place] [address] , Generic Conversion, Social History Tobacco Use [...]
--- OUTSIDE RECORDS SUMMARY | 2024-08-20 13:54 | XMS_ITS | Encounter Summary ---
Author Organization [facility] Address [address] [place] [address]. [place] [address] [place] [address] Care Team Providers Care Switch Tender Name Role Phone Unavailable Primary Care Provider Unavailabl e Encounter Details Date Type Department Care Team (Late st Contact Info) Description 08/12/1997 Abstract SFL CONVERSION [address] [place] [address] , Generic Conversion, Social History Tobacco Use [...]
--- OUTSIDE RECORDS SUMMARY | 2024-08-20 14:15 | XMS_ITS | Continuity of Care Document ---
Author Organization [facility] Address [address] [facility] [address] [place] [address] Phone Care Team Providers Care Antisqueak Worker Name Role Phone Junior Menard MD Unavailable Unavailable Allergies, Adverse Reactions, Alerts Substance Reaction Status Criticality NSAIDS (Non-Steroidal Anti-Inflammatory Drug) Active No Information Medications Medication Instructions Dosage Effective Dates (start - stop) Status Comments ASPIRIN (unknown strength) Not Available - Active TYLENOL (unknown strength) Not Available - Active EXCEDRIN BACK & BODY (unknown strength) Not Available - Active Procedures Procedure Date MU Reporting OFFICE/OUTPATIENT VISIT NEW Advance Directives Directive Yes / No Effective Date File Name No Information Encounters Encounter Description Practice Location Reason(s) For Visit Diagnoses Date Provider Providers Copied on Encounter [facility], [address], [facility], tel:[phone] [facility] No Information 3 Sailaja Pacheco. [address] [place], [place], [id number] . tel: [phone] OFFICE/OUTPA TIENT VISIT NEW [facility], [address], [facility], tel:[phone] [facility] Body Mass Index 29.0-29.9, adultDietary surveillance and counselingHyperte nsion, UnspecifiedLumbar RadiculopathyOthe r unspecified back disorder 3 Sailaja Pacheco. [address] [place], [place], [id number] . tel: [phone] Family History Family Member Type Diagnosis Age At Onset Problem (finding) Family history of rheum atoid arthritis Payers Payer name Insurance type Covered democrat ID Authoriza tiash(s) No Information Social History Type Description Quantity Date Captured Comments Sex Male Smoking Status No Information Chief Complaint And Reason For Visit No Information Reason For Referral Reason For Referral No Information Plan Of Treatment Date Type Action Status Goal Tobacco cessation counseling completed Referral Ordered: MYELOGRAPY LUMBOSAC RS&I Appointment date/timeframe: 04/15/2013 ordered Referral Ordered: RADEX SPI LUMBOSAC 2/3 VIEWS ordered Referral Ordered: RADEX SPI CRV 2/3 VIEWS ordered History Of Present Illness Encounter Date Complaint History Of Prese nt Illness No Information Functional Status Date Functional Assessmen t No Information Instructions Date Instruction Additional Infor mation Take new medication as prescribe d Activity as tolerated Do not stop meds when symptoms r esolve Assessments Type Assessment Date No Information Patient Care Teams Name Effective Dates (start - stop) Status Members No Information
--- OUTSIDE RECORDS SUMMARY | 2024-08-20 14:15 | XMS_ITS | Continuity of Care Document ---
Author Organization [facility] Address [address] [place] [address] [place] [address] Phone Care Team Providers Care Hard Hat Diver Name Role Phone Adriana Lim Unavailable Unavailable Procedures Procedure Date Office/outpatient Visit, Est Office/outpatient Visit, Est Office/outpatient Visit, Est Office Consultation Advance Directives Directive Yes / No Effective Date File Name No Information Encounters Encounter Description Practice Location Reason(s) For Visit Diagnoses Date Provider Providers Copied on Encounter Office/outpati ent Visit, [facility] [address] [place] [address] [address], [place], [place], [id number], tel:[phone] [facility] No Information Feb-2 4-200 9 Carina Bills [address] [facility] , [address], [place], [place], [facility], . tel:[phone] Office/outpati ent Visit, [facility] [address] [place] [address] [address], [place], [place], [id number], tel:[phone] [facility] No Information Feb-1 0-200 9 Carina Bills [address] , [address], [place], [place], [facility], . tel:[phone] Office/outpati ent Visit, [facility] [address] [place] [address] [address], [place], [place], [id number], tel:[phone] [facility] No Information Feb-0 3-200 9 Carina Wright. [address] , [address], [place], [address], [place]. tel:[phone] Office Consultation [facility], [address], [place], [place], [id number], [place] tel:[phone] [facility] No Information 9 Carina Wright. [address] [facility] , [address], [place], [address], [place]. tel:[phone] Referring Provider: Jeff Grayson, [address] [place], [address]. tel:[phone] Family History Family Member Type Diagnosis Age At Onset No Information Payers Payer name Insurance type Covered libertarian ID Authoriza tiash(s) [place] [id number] Social History Type Description Quantity Date Captured Comments Sex Male Smoking Status No Information Chief Complaint And Reason For Visit No Information Reason For Referral Reason For Referral No Information History Of Present Illness Encounter Date Complaint History Of Prese nt Illness No Information Functional Status Date Functional Assessmen t No Information Instructions Date Instruction Additional Infor mation No Information Assessments Type Assessment Date No Information Patient Care Teams Name Effective Dates (start - stop) Status Members No Information
--- OUTSIDE RECORDS SUMMARY | 2024-08-20 14:24 | XMS_ITS | Clinical Summary ---
Author Organization [facility] Address [address] [place] [address] Care Team Providers Care Grainer Machine Name Role Phone Melchorleeanne Markelvia BACK Primary Care Provider [phone] Source Comments [facility] [employer],non-owned Affiliates and Associated Physician Practices is amultiple site organization consisting of ambulatory clinics and hospital sitesin [place], [place], [place] and [place]. This disclosure is being madepursuant to the Care Everywhere program and may not contain all information available regarding this patient. Last updated 18.[facility] [employer] Allergies Active Allergy Reactions Criticality Noted Date [...] Department Care Team Description 4 2:30 PM VINYL WELDER AND FABRICATOR - 4 3:30 PM VINYL WELDER AND FABRICATOR Surgery [facility] ENDOSCOPY [facility] [place] [address] Raymond Miller MD ESOPHAGOGASTRODUODENOSCOPY (EGD) /ESOPHAGOSCOPY WITH ULTRASOUND (EUS) 4 11:27 AM VINYL WELDER AND FABRICATOR Anesthesia Event [facility] ENDOSCOPY [address] [place] [address] Willian Cheung MD McGee, Jeffrey, Anes Asst 4 5:26 AM VINYL WELDER AND FABRICATOR - 4 11:57 AM VINYL WELDER AND FABRICATOR Hospital Encounter [facility] 8S ACUTE [address] [place] [address] Chet Henning MD Yogendran, MD Carlos Finch, [...] and heating? Not hard at all 08/20/2024 [facility] [place] of Occupat ional Health - Occupational Stress [...] were you homeless or living in a detention (including now)? No 08/20/2024 Sex and Gender Information Value Date Recorded Sex Assigned at Not on file Gender Identity Not on file Sexual Orientation Not on file Last Filed Vital Signs Vital Sign Reading Time Taken Comments Blood Pressure 164/85 08/20/2024 11:05 AM VINYL WELDER AND FABRICATOR Pulse 60 08/20/2024 11:05 AM VINYL WELDER AND FABRICATOR Temperature 36.8 ??C (98.3 ??F) 08/20/2024 11:[address] Respiratory Rate 20 08/20/2024 11:05 AM VINYL WELDER AND FABRICATOR Oxygen Saturation 97% 08/20/2024 11:05 AM VINYL WELDER AND FABRICATOR Inhaled Oxygen Concentration - - Weight 74.5 kg (164 lb 3.2 oz) 08/18/2024 4:00 A M VINYL WELDER AND FABRICATOR Height 182.9 cm (6') 08/16/2024 5:26 AM VINYL WELDER AND FABRICATOR Body Mass Index 22.27 08/16/2024 5:26 AM VINYL WELDER AND FABRICATOR Plan of Treatment Upcoming Encounters Date Type Department Care Team (Late st Contact Info) Description 01/19/2025 11:00 AM CDT Office Visit [facility] - [facility] [place] [address] [place] [address] [place] [phone] Health Maintenance Due Date Last Done [...] W AUTO DIFFERENTIAL Routine 08/20/2024 5:49 AM VINYL WELDER AND FABRICATOR COMPREHENSIVE METABOLIC PANEL Routine 08/20/2024 5:49 AM VINYL WELDER AND FABRICATOR MAGNESIUM BLOOD Routine 08/20/2024 5:49 AM VINYL WELDER AND FABRICATOR PHOSPHORUS BLOOD Routine 08/20/2024 5:49 AM VINYL WELDER AND FABRICATOR ENDOSCOPIC ULTRASONOGRAPHY, GI Routine 08/19/2024 11:04 AM VINYL WELDER AND FABRICATOR CBC W AUTO DIFFERENTIAL Routine 08/19/2024 7:43 AM VINYL WELDER AND FABRICATOR COMPREHENSIVE METABOLIC PANEL Routine 08/19/2024 7:43 AM VINYL WELDER AND FABRICATOR MAGNESIUM BLOOD Routine 08/19/2024 7:43 AM VINYL WELDER AND FABRICATOR PHOSPHORUS BLOOD Routine 08/19/2024 7:43 AM VINYL WELDER AND FABRICATOR LACTIC ACID BLOOD Routine 08/18/2024 6:4 0 AM VINYL WELDER AND FABRICATOR CBC W AUTO DIFFERENTIAL Routine 08/18/2024 6:40 AM VINYL WELDER AND FABRICATOR COMPREHENSIVE METABOLIC PANEL Routine 08/18/2024 6:40 AM VINYL WELDER AND FABRICATOR MAGNESIUM BLOOD Routine 08/18/2024 6:40 AM VINYL WELDER AND FABRICATOR PHOSPHORUS BLOOD Routine 08/18/2024 6:40 AM VINYL WELDER AND FABRICATOR PT-INR [facility] Routine 08/18/2024 6:40 AM VINYL WELDER AND FABRICATOR ECHO COMPLETE W CONTRAST Routine 08/17/2024 2:37 PM VINYL WELDER AND FABRICATOR Shock (HCC) EKG 12-LEAD Routine 08/17/2024 12:32 PM VINYL WELDER AND FABRICATOR Elevated CK WILIAM (acute kidney injury) (HCC) BASIC METABOLIC PANEL (CALCIUM TOTAL) STAT 08/17/2024 5:13 AM VINYL WELDER AND FABRICATOR CBC W/O DIFFERENTIAL STAT 08/17/2024 5:13 AM VINYL WELDER AND FABRICATOR LACTIC ACID BLOOD STAT 08/17/2024 5:1 3 AM VINYL WELDER AND FABRICATOR TSH Routine 08/17/2024 4:07 AM VINYL WELDER AND FABRICATOR SYPHILIS ANTIBODY CASCADING REFLEX AM Draw 08/17/2024 4:07 AM VINYL WELDER AND FABRICATOR VITAMIN B12 AM Draw 08/17/2024 4:07 AM VINYL WELDER AND FABRICATOR HEMOGLOBIN A1C Routine 08/17/2024 4:07 AM VINYL WELDER AND FABRICATOR LACTIC ACID BLOOD Routine 08/17/2024 4:0 7 AM VINYL WELDER AND FABRICATOR CK BLOOD Routine 08/17/2024 4:07 AM VINYL WELDER AND FABRICATOR CBC W AUTO DIFFERENTIAL Routine 08/17/2024 4:07 AM VINYL WELDER AND FABRICATOR COMPREHENSIVE METABOLIC PANEL Routine 08/17/2024 4:07 AM VINYL WELDER AND FABRICATOR MAGNESIUM BLOOD Routine 08/17/2024 4:07 AM VINYL WELDER AND FABRICATOR PHOSPHORUS BLOOD Routine 08/17/2024 4:07 AM VINYL WELDER AND FABRICATOR PT-INR [facility] Routine 08/17/2024 4:07 AM VINYL WELDER AND FABRICATOR GLUCOSE - POINT OF CARE Routine 08/17/2024 4:05 AM VINYL WELDER AND FABRICATOR GLUCOSE - POINT OF CARE Routine 08/17/2024 12:29 AM VINYL WELDER AND FABRICATOR EKG 12-LEAD STAT 08/16/2024 10:17 PM VINYL WELDER AND FABRICATOR Elevated CK GLUCOSE - POINT OF CARE Routine 08/16/2024 10:14 PM VINYL WELDER AND FABRICATOR DRUG SCREEN EXPANDED TOXICOLOGY URINE PANEL Routine 08/16/2024 10:01 PM VINYL WELDER AND FABRICATOR CULTURE BLOOD Timed 08/16/2024 8:33 PM VINYL WELDER AND FABRICATOR CULTURE BLOOD Timed 08/16/2024 8:15 PM VINYL WELDER AND FABRICATOR CULTURE URINE Routine 08/16/2024 7:46 PM VINYL WELDER AND FABRICATOR PHOSPHORUS BLOOD STAT 08/16/2024 7:05 PM VINYL WELDER AND FABRICATOR MAGNESIUM BLOOD STAT 08/16/2024 7:05 PM VINYL WELDER AND FABRICATOR LACTIC ACID BLOOD STAT 08/16/2024 7:0 5 PM VINYL WELDER AND FABRICATOR COMPREHENSIVE METABOLIC PANEL STAT 08/16/2024 7:05 PM VINYL WELDER AND FABRICATOR CBC W AUTO DIFFERENTIAL STAT 08/16/2024 7:05 PM VINYL WELDER AND FABRICATOR BLOOD GASES ART + COOX PANEL Routine 08/16/2024 7:01 PM VINYL WELDER AND FABRICATOR LACTIC ACID BLOOD REFLEX TO REPEAT STAT 08/16/2024 3:18 PM VINYL WELDER AND FABRICATOR BASIC METABOLIC PANEL (CALCIUM TOTAL) STAT 08/16/2024 10:34 AM VINYL WELDER AND FABRICATOR CK BLOOD STAT 08/16/2024 10:34 AM VINYL WELDER AND FABRICATOR URINE MICROSCOPIC ONLY REFLEX TO CULTURE STAT 08/16/2024 9:23 AM VINYL WELDER AND FABRICATOR UREA NITROGEN URINE RANDOM STAT 08/16/2024 9:23 AM VINYL WELDER AND FABRICATOR CREATININE URINE RANDOM STAT 08/16/2024 9:23 AM VINYL WELDER AND FABRICATOR LYTES (NA K) URINE RANDOM PANEL STAT 08/16/2024 9:23 AM VINYL WELDER AND FABRICATOR URINALYSIS REFLEX MICROSCOPIC REFLEX CULTURE STAT 08/16/2024 9:23 AM VINYL WELDER AND FABRICATOR URINE DRUG SCREEN IMMUNOASSAY STAT 08/16/2024 9:23 AM VINYL WELDER AND FABRICATOR HEPATIC FUNCTION PANEL STAT 8:52 AM VINYL WELDER AND FABRICATOR ACETAMINOPHEN LEVEL STAT 08/16/2024 8 :52 AM VINYL WELDER AND FABRICATOR TRICYCLICS SCREEN BLOOD STAT 08/16/2024 8:52 AM VINYL WELDER AND FABRICATOR SALICYLATE LEVEL BLOOD STAT 8:52 AM VINYL WELDER AND FABRICATOR XR PELVIS 1 OR 2VW STAT 08/16/2024 7: 20 AM VINYL WELDER AND FABRICATOR Fall (on) (from) other stairs and steps, initial encounter CT ANGIO LOWER EXTREMITY RIGHT STAT 08/16/2024 6:58 AM VINYL WELDER AND FABRICATOR Fall (on) (from) other stairs and steps, initial encounter CT ANGIO LOWER EXTREMITY LEFT STAT 08/16/2024 6:58 AM VINYL WELDER AND FABRICATOR Fall (on) (from) other stairs and steps, initial encounter CT LUMBAR SPINE WO CONTRAST STAT 08/16/2024 6:58 AM VINYL WELDER AND FABRICATOR Fall (on) (from) other stairs and steps, initial encounter CT THORACIC SPINE WO CONTRAST STAT 08/16/2024 6:58 AM VINYL WELDER AND FABRICATOR Fall (on) (from) other stairs and steps, initial encounter CT CHEST ABDOMEN PELVIS W CONT STAT 08/16/2024 6:58 AM VINYL WELDER AND FABRICATOR Fall (on) (from) other stairs and steps, initial encounter CT CERVICAL SPINE WO CONTRAST STAT 08/16/2024 6:58 AM VINYL WELDER AND FABRICATOR Fall (on) (from) other stairs and steps, initial encounter CT HEAD WO CONTRAST STAT 08/16/2024 6 :58 AM VINYL WELDER AND FABRICATOR Fall (on) (from) other stairs and steps, initial encounter XR CHEST 1VW PORTABLE STAT 08/16/2024 6:11 AM VINYL WELDER AND FABRICATOR Fall (on) (from) other stairs and steps, initial encounter TYPE + SCREEN PANEL STAT 08/16/2024 5 :50 AM VINYL WELDER AND FABRICATOR PT-INR [facility] STAT 08/16/2024 5:50 AM VINYL WELDER AND FABRICATOR PTT [facility] STAT 08/16/2024 5:50 AM VINYL WELDER AND FABRICATOR LIPASE BLOOD STAT 08/16/2024 5:50 AM VINYL WELDER AND FABRICATOR CBC W AUTO DIFFERENTIAL STAT 08/16/2024 5:50 AM VINYL WELDER AND FABRICATOR BASIC METABOLIC PANEL (CALCIUM TOTAL) STAT 08/16/2024 5:50 AM VINYL WELDER AND FABRICATOR ALCOHOL ETHYL BLOOD STAT 08/16/2024 5 :50 AM VINYL WELDER AND FABRICATOR from Last 3 Months Results * (ABNORMAL) CBC W AUTO DIFFERENTIAL (08/20/2024 5:49 AM VINYL WELDER AND FABRICATOR) Only the most recent of6 resultswithin the time period is included. WBC 3.6(L) 4.0 - 10.7 x10E9/L 08/20/2024 6:56 AM [facility] RBC Count 3.32(L) 4.30 - 5.80 x10E12/L 08/20/2024 6:56 AM [facility] Hemoglobin 11.3(L) 13.3 - 17.5 g/dL 08/20/2024 6:56 AM [facility] Hematocrit 32.1(L) 38.7 - 51.1 % 08/20/2024 6:56 AM [facility] MCV 96.7 80.0 - 98.0 fL 08/20/2024 6:56 AM [facility] MCH 34.0(H) 26.7 - 33.6 pg 08/20/2024 6:56 AM [facility] MCHC 35.2 31.7 - 36.3 g/dL 08/20/2024 6:56 AM [facility] RDW-CV 12.2 11.3 - 14.8 % 08/20/2024 6:56 AM [facility] Platelet Count 141(L) 150 - 420 x10E9/L 08/20/2024 6:56 AM [facility] MPV 10.0 7.8 - 11.4 fL 08/20/2024 6:56 AM [facility] Neutrophil % 57.6 41.0 - 74.0 % 08/20/2024 6:56 AM [facility] Lymphocyte % 27.2 17.0 - 47.0 % 08/20/2024 6:56 AM [facility] Monocyte % 10.8 3.0 - 11.0 % 08/20/2024 6:56 AM [facility] Eosinophil % 3.3 0.0 - 7.0 % 08/20/2024 6:56 AM [facility] Basophil % 0.3 0.0 - 1.6 % 08/20/2024 6:56 AM [facility] Immature Granulocytes % 0.8 0.0 - 1.0 % 08/20/2024 6:56 AM [facility] Neutrophil Absolute 2.07 1.60 - 7.50 x10E9/L 08/20/2024 6:56 AM [facility] Lymphocyte Absolute 0.98(L) 1.00 - 4.40 x10E9/L 08/20/2024 6:56 AM [facility] Monocyte Absolute 0.39 0.15 - 1.00 x10E9/L 08/20/2024 6:56 AM [facility] Eosinophil Absolute 0.12 0.00 - 0.60 x10E9/L 08/20/2024 6:56 AM [facility] Basophil Absolute 0.01 0.00 - 0.13 x10E9/L 08/20/2024 6:56 AM [facility] Blood BLOOD SPECIMEN / Unknown Lab Venipuncture / Unknown 08/20/2024 5:49 AM [facility]INYL WELDER AND FABRICATOR 08/20/2024 6:35 AM VINYL WELDER AND FABRICATOR Can Woo MD LAB - HEMATOLOGY ORD ERABLES [facility] [address] [place] [address], [facility] [phone] * (ABNORMAL) COMPREHENSIVE METABOLIC PANEL (08/20/2024 5:49 AM VINYL WELDER AND FABRICATOR) Only the most recent of5 resultswithin the time period is included. BUN 13 7 - 26 mg/dL 08/20/2024 7:13 AM [facility] Creatinine 0.84 0.71 - 1.16 mg/dL 08/20/2024 7:13 AM [facility] Sodium 140 136 - 145 mmol/L 08/20/2024 7:13 AM [facility] Potassium 4.1 3.5 - 4.5 mmol/L 08/20/2024 7:13 AM [facility] Chloride 110(H) 98 - 107 mmol/L 08/20/2024 7:13 AM [facility] CO2 24 22 - 29 mmol/L 08/20/2024 7:13 AM [facility] Glucose 76 70 - 99 mg/dL 08/20/2024 7:13 AM [facility] Calcium 8.2(L) 8.4 - 10.2 mg/dL 08/20/2024 7:13 AM [facility] Protein Total 5.0(L) 6.0 - 8.3 g/dL 08/20/2024 7:13 AM [facility] Albumin 2.4(L) 3.4 - 5.0 g/dL 08/20/2024 7:13 AM [facility] Bilirubin Total 0.4 0.2 - 1.2 mg/dL 08/20/2024 7:13 AM [facility] Alkaline Phosphatase 44 40 - 150 U/L 08/20/2024 7:13 AM [facility] ALT 34 5 - 55 U/L 08/20/2024 7:13 AM [facility] AST 39(H) 5 - 34 U/L 08/20/2024 7:13 AM [facility] Anion Gap 6 6 - 16 08/20/2024 7:13 AM [facility] BUN/Creatinine Ratio 15 7 - 23 08/20/2024 7:13 AM [facility] Osmolality Calculated 289 275 - 295 mOsm/kg 08/20/2024 7:13 AM [facility] Albumin/Globulin Ratio 0.9(L) 1.1 - 2.3 08/20/2024 7:13 AM [facility] eGFR by CKD-EPI >90 >=90 mL/min/1.7 3 m2 08/20/2024 7:13 AM [facility] Blood BLOOD SPECIMEN / Unknown Lab Venipuncture / Unknown 08/20/2024 5:49 AM [facility]EL[facility] [employer] FABRICATOR 08/20/2024 6:39 AM [facility] Can Woo MD LAB - CHEMISTRY BINDU BOO [facility] Organization Address City/State/[facility] Co de Phone Number [address] [address], [facility] [phone] * (ABNORMAL) PHOSPHORUS BLOOD (08/20/2024 5:49 AM VINYL WELDER AND FABRICATOR) Only the most recent of5 resultswithin the time period is included. Phosphorus 2.6(L) 2.8 - 5.1 mg/dL 08/20/2024 7:13 AM [facility] Blood BLOOD SPECIMEN / Unknown Lab Venipuncture / Unknown 08/20/2024 5:49 AM [facility] WELDER AND FABRICATOR 08/20/2024 6:39 AM [facility] WELDER AND FABRICATOR Can Woo MD LAB - CHEMISTRY BINDU BOO Performing Organization Address City/[facility]/ZIP Co de Phone Number [address] [address], [facility] [phone] * MAGNESIUM BLOOD (08/20/2024 5:49 AM VINYL WELDER AND FABRICATOR) Only the most recent of5 resultswithin the time period is included. Magnesium 1.7 1.6 - 2.6 mg/dL 08/20/2024 7:13 AM VINYL WELDER AND FABRICATOR [facility] Blood BLOOD SPECIMEN / Unknown Lab Venipuncture / Unknown 08/20/2024 5:49 AM VINYL WELDER AND FABRICATOR 08/20/2024 6:39 AM [facility]INYL WELDER AND FABRICATOR Can Woo MD LAB - CHEMISTRY BINDU BOO Performing Organization Address [facility] Co de Phone Number [address] [address], [facility] [phone] * Endoscopic Ultrasonography, GI (08/19/2024 11:04 AM VINYL WELDER AND FABRICATOR) Report Endoscopy POC Endoscopy Department Report _ [...] and ?oxygen saturations were monitored continuously. The ?[id number] was introduced through the mouth, and ?advanced [...] Procedure Code(s): ? --- Professional --- ? 83046, Esophagogastroduodenos copy, flexible, transoral; with endoscopic ? ultrasound examination limited to the esophagus, stomach or duodenum, ? and adjacent structures Diagnosis Code(s): ?--- Professional --- ?K80.20, Calculus of gallbladder without ?cholecystitis without obstruction ?K86.9, Disease of pancreas, unspecified ?K83.8, Other specified diseases of biliary tract ?R93.2, Abnormal findings on diagnostic imaging of ?liver and biliary tract CPT copyright 2021 [employer]. All rights reserved. The codes documented in this report are preliminary and upon terminologist review may be revised to meet current compliance requirements. Raymond Miller MD 08/19/2024 12:49:34 PM This report has been signed electronically. Note Initiated On: 08/19/2024 11:04 AM Number of Addenda: 0 ? [facility] ? [address] [place], [place] [address] [place] [address] [employer] 08/19/2024 11:0 4 AM [facility]IN[employer] WELDER AND FABRICATOR Narrative Procedure Note Kay Isidro MD - 08/19/2024 12:50 PM CST (No note.) Oscar Zendejas MD GI PROCEDURE ORDERAB LES [facility] [employer] * PT-INR [facility] (08/18/2024 6:40 AM VINYL WELDER AND FABRICATOR) Only the most recent of3 resultswithin the time period is included. PT 14.2 12.1 - 14.8 Seconds 08/18/2024 7:34 AM [facility] INR 1.1 See Comment 08/18/2024 7:34 AM [facility] Comment:The suggested therap eutic range for standard coumadin (warfarin) therapy is an INR of 2.0-3.0. For high-risk patients (Mechanical Mitral Valve Prosthesis, etc.), the suggested prophylactic therapeutic range is an INR of 2.5-3.5. Blood BLOOD SPECIMEN / Unknown Lab Venipuncture / Unknown 08/18/2024 6:40 AM [facility] FABRICATOR 08/18/2024 7:13 AM [facility] WELDER AND FABRICATOR Can Woo MD LAB - COAGULATION OR DERABLES Performing Organization Address City/[facility]/ZIP Co de Phone Number [address] [address], [facility] [phone] * LACTIC ACID BLOOD (08/18/2024 6:40 AM VINYL WELDER AND FABRICATOR) Only the most recent of4 resultswithin the time period is included. [facility] Lactic Acid-Stat 1.1 <=2.0 mmol/L 08/18/2024 7:23 AM [facility] Blood BLOOD SPECIMEN / Unknown Lab Venipuncture / Unknown 08/18/2024 6:40 AM [facility] AND FABRICATOR 08/18/2024 6:53 AM [facility] WELDER AND FABRICATOR Can Woo MD LAB - CHEMISTRY ORDE RABLES Performing Organization Address City/[facility]/ZIP Co de Phone Number [address] [address], [place] [phone] * ECHO COMPLETE W CONTRAST (08/17/2024 2:37 PM VINYL WELDER AND FABRICATOR) [facility] LVOT diam 2.23 cm SSM CV [...] PACS LVOT VTI 22.255 cm SSM CV [facility] I PACS RV-farrell basal diam 3.734 cm [facility] diam Doppler 2.718 cm [facility] RVOT pk aravind 66.78 cm/s SSM CV F UJI PACS RVOT VTI 14.325 cm SSM CV [facility] I PACS LA size 3.277 cm S[facility] CV [facility] I PACS LA vol BP 39.403 ml SSM CV [facility] I PACS RA area 11.564 cm? ? ? [facility] AV mn grad 3.382 mmHg SSM CV FU PACS AV pk aravind 135.812 cm/s [facility] CV [facility] I PACS AV VTI 24.243 cm [facility] CV [facility] I PACS MV A pk aravind 79.206 cm/s SSM CV F U PACS MV E pk aravind 78.034 cm/s SSM CV F U PACS MV E' lateral aravind 9.049 cm/s [facility] MV mn grad 1.355 mmHg [facility] CV FU PACS MV VTI 25.365 cm [facility] CV [facility] I PACS PV pk aravind 76.07 cm/s [facility] CV [facility] I PACS PV VTI 13.837 cm [facility] CV [facility] I PACS TAPSE 2.225 cm [facility] CV [facility] I PACS TR pk aravind 260.308 cm/s [facility] CV [facility] I PACS Ascending aorta 3.443 cm [facility] LA vol index 0.022 l/m? ? ? [facility] Myocardial strain charge 1 unitless [facility] CV [facility] PACS Anatomical Region Laterality Modality Ultrasound 08/17/2024 1:34 PM [facility]DER AND FABRICATOR Narrative 08/18/2024 8:50 AM [facility]ELDER AND FABRICATOR Summary ??* The left ventricle is normal [...] 1955 Gender: ? Male Accession #: ? [id number] Ht: ? 65 in Wt: ? 155 lb BSA: ? 1.81 m2 HR: ? 69 bpm BP: ? 127 / ? 70 mmHg Heart Rhythm: ? Sinus Rhythm Exam Date: ? 08/17/2024 1:34 PM Exam Room: ? 411 Patient Status: ? O/P Study Site: ? [facility]: ? Fair Exam Type: [...] Can Woo Attending Physician: ? Can Woo Model Maker Firearms: ? Kayley Peoples RDCS Left Ventricle ??The [...] Exam Date: 08/17/2024 1:34 PM Exam Room: [facility] Patient Status: O/P Study Site: [facility] Primary Location: [facility] Info Technical Quality: Fair Exam Type: ECHO [...] Provider: Can Woo Attending Physician: Can Woo Model Maker Firearms: Kayley Peoples RDCS Left Ventricle The left [...] CUPID * EKG 12-LEAD (08/17/2024 12:32 PM VINYL WELDER AND FABRICATOR) Ventricular Rate 73 BPM [facility] Atrial Rate 73 BPM [facility] P-R Interval 176 ms [facility] QRS Duration ms 94 ms [facility] Q-T Interval ms 392 ms [facility] QTC Calculation (Bezet) 431 ms [facility] Calculated P [place] 46 degrees [facility] Calculated R [place] 47 degrees [facility] Calculated T [place] 29 degrees [facility] Interpretation EKG NORMAL SINUS RHYTHM NORMAL ECG Confirmed by HANANE ROSAS, KEN ([id number]) on 08/17/2024 5:44:27 PM [facility]USE 08/17/2024 12:3 2 PM [facility] FABRIC[facility] 08/17/2024 5:44 PM [facility] FABRICATOR Can Woo MD ECG ORDERABLES [facility] MUSE * (ABNORMAL) CBC W/O DIFFERENTIAL (08/17/2024 5:13 AM [facility]) WBC 5.8 4.0 - 10.7 x10E9/L 08/17/2024 5:51 AM [facility] RBC Count 3.53(L) 4.30 - 5.80 x10E12/L 08/17/2024 5:51 AM [facility] Hemoglobin 12.0(L) 13.3 - 17.5 g/dL 08/17/2024 5:51 AM [facility] Hematocrit 35.3(L) 38.7 - 51.1 % 08/17/2024 5:51 AM [facility] MCV 100.0(H) 80.0 - 98.0 fL 08/17/2024 5:51 AM [facility] MCH 34.0(H) 26.7 - 33.6 pg 08/17/2024 5:51 AM [facility] MCHC 34.0 31.7 - 36.3 g/dL 08/17/2024 5:51 AM [facility] RDW-CV 12.5 11.3 - 14.8 % 08/17/2024 5:51 AM [facility] Platelet Count 118(L) 150 - 420 x10E9/L 08/17/2024 5:51 AM [facility] MPV 10.6 7.8 - 11.4 fL 08/17/2024 5:51 AM [facility] Blood BLOOD SPECIMEN / Unknown Line Draw / Unknown 08/17/2024 5:13 AM [facility] FABRICATOR 08/17/2024 5:22 AM [facility] Can Woo MD LAB - HEMATOLOGY ORD ERABLES [address] [address], [facility] [phone] * (ABNORMAL) BASIC METABOLIC PANEL (CALCIUM TOTAL) (08/17/2024 5:13 AM [facility]) Only the most recent of3 resultswithin the time period is included. Pathologist [facility] BUN 36(H) 7 - 26 mg/dL 08/17/2024 5:50 AM [facility] Creatinine 1.50(H) 0.71 - 1.16 mg/dL 08/17/2024 5:50 AM [facility] Sodium 142 136 - 145 mmol/L 08/17/2024 5:50 AM [facility] Potassium 4.3 3.5 - 4.5 mmol/L 08/17/2024 5:50 AM [facility] Chloride 111(H) 98 - 107 mmol/L 08/17/2024 5:50 AM [facility] CO2 24 22 - 29 mmol/L 08/17/2024 5:50 AM [facility] Glucose 103(H) 70 - 99 mg/dL 08/17/2024 5:50 AM [facility] Calcium 7.8(L) 8.4 - 10.2 mg/dL 08/17/2024 5:50 AM [facility] Anion Gap 7 6 - 16 08/17/2024 5:50 AM [facility] BUN/Creatinine Ratio 24(H) 7 - 23 08/17/2024 5:50 AM [facility] Osmolality Calculated 303(H) 275 - 295 mOsm/kg 08/17/2024 5:50 AM [facility] eGFR by CKD-EPI 51(L) >=90 mL/min/1.7 3 m2 08/17/2024 5:50 AM [facility] Blood BLOOD SPECIMEN / Unknown Line Draw / Unknown 08/17/2024 5:13 AM [facility] [employer] 08/17/2024 5:21 AM [facility] Can Woo MD LAB - CHEMISTRY ORDE RAJEEV [facility] Organization Address City/State/ZIP Co de Phone Number [facility] [address] [place] [address], [facility] [phone] * SYPHILIS ANTIBODY CASCADING REFLEX (08/17/2024 4:07 AM [facility]) Treponema pallidum Antibody Non-react bassem Non-react bassem 08/17/2024 5:09 AM [facility] Comment: No Laboratory evidence of syphilis infection. ?? Note: ??Circulating antibodies may be low or undetectable in early infection. ??If recent exposure is suspected, re-draw sample in 2-4 weeks and repeat testing. Blood BLOOD SPECIMEN / Unknown Line Draw / Unknown 08/17/2024 4:07 AM [facility] [employer] [facility] 08/17/2024 4:13 AM [facility] [facility] Can Woo MD LAB - SEROLOGY ORDER [place]ST[place] Performing Organization Address City/[facility]/ZIP Co de Phone Number [address] [address], [place] [phone] * HEMOGLOBIN A1C (08/17/2024 4:07 AM [facility]) Hemoglobin A1c 5.1 <=5.6 % 08/17/2024 9:15 AM [facility] Estimated Average Glucose 100 mg/dL 08/17/2024 9:15 AM [facility] Comment: HbA1c Interpretation: Normal : < 5.7% Pre-diabetes: 5.7-6.4% Diabetes: Equal to or greater than 6.5% Test results diagnostic of diabetes should be repeated for confirmation. Treatment target values recommended by ADA and other clinical organizations should be used to evaluate metabolic control in patients. Reference: [place] [employer], Standards of Care in Diabetes -2020 In patients 70 years and older consider HbA1c target range of 7.0-7.5% (Reference: Blu Pineda et al. JAMDA. 2012) The Sebia assay for the measurement of HbA1c is a National Glycohemoglobin Standardization Program (NGSP) certified method. Blood BLOOD SPECIMEN / Unknown Line Draw / Unknown 08/17/2024 4:07 AM [facility] [employer] F[employer]RIC[facility] 08/17/2024 4:20 AM [facility]INYL WELDER AND FABRICATOR Can Woo MD LAB - CHEMISTRY ORDE RABLES Performing Organization Address City/[facility]/ZIP Co de Phone Number [address] [address], [place] [phone] * (ABNORMAL) CK BLOOD (08/17/2024 4:07 AM [facility]YL WELDER AND FABRICATOR) Only the most recent of2 resultswithin the time period is included. CK Total 1,786(H) 30 - 200 U/L 08/17/2024 4:56 AM VINYL WELDER AND FABRICATOR [facility] Blood BLOOD SPECIMEN / Unknown Line Draw / Unknown 08/17/2024 4:07 AM [facility] [facility] AND FABRICATOR 08/17/2024 4:23 AM [facility] WELDER AND FABRICATOR Can Woo MD LAB - CHEMISTRY BINDU BOO Performing Organization Address City/[facility]/ZIP Co de Phone Number [address] [address], [place] [phone] * (ABNORMAL) VITAMIN B12 (08/17/2024 4:07 AM VINYL WELDER AND FABRICATOR) [facility] Vitamin B12 182(L) 213 - 816 pg/mL 08/17/2024 5:15 AM VINYL WELDER AND FABRICATOR [facility] Blood BLOOD SPECIMEN / Unknown Line Draw / Unknown 08/17/2024 4:07 AM [facility] WELDER AND FABRICATOR 08/17/2024 4:23 AM [employer] WELDER AND FABRICATOR Can Woo MD LAB - CHEMISTRY BINDU BOO Performing Organization Address [facility]/ZIP Co de Phone Number [address] [address], [place] [phone] * (ABNORMAL) TSH (08/17/2024 4:07 AM VINYL WELDER AND FABRICATOR) [facility] TSH 0.112(L) 0.350 - 4.940 uIU/mL 08/17/2024 5:15 AM V[employer]YL WELDER AND FABRICATOR [facility] Blood BLOOD SPECIMEN / Unknown Line Draw / Unknown 08/17/2024 4:07 AM [facility] FABRICATOR 08/17/2024 4:23 AM [facility]YL WELDER AND FABRICATOR Can Woo MD LAB - CHEMISTRY BINDU BOO Performing Organization Address City/[facility]/ZIP Co de Phone Number [address] [address], [place] [phone] * GLUCOSE - POINT OF CARE (08/17/2024 4:05 AM V[employer]YL WELDER AND FABRICATOR) Only the most recent of3 resultswithin the time period is included. Glucose WB/POC 85 70 - 99 mg/dL 08/17/2024 4:10 AM [facility]INYL WELDER AND FABRICATOR [facility] Specimen Type Venous 08/17/2024 4:10 AM [facility] Blood BLOOD SPECIMEN / Unknown 08/17/2024 4:05 AM [facility] WELDER AND FABRICATOR 08/17/2024 4:10 AM [facility]INYL WELDER AND FABRICATOR Can Woo MD LAB - POINT OF CARE ORDERABLES Performing Organization Address [facility]/ZIP Co de Phone Number [address] [address], [facility] [phone] * (ABNORMAL) DRUG SCREEN EXPANDED TOXICOLOGY URINE PANEL (08/16/2024 10:01 PM VINYL WELDER AND FABRICATOR) Pathologist [facility] Expanded Drug Screen, Urine Positive(A) Negative 08/17/2024 12:20 PM [facility] Findings Acetaminophen Caffeine Codeine Codeine glucuronide Cotinine Cyclobenzaprine Diphenhydramine Duloxetine Gabapentin Hydromorphone glucuronide Lisinopril meta-Chloropheny lpiperazine(mCPP ) Morphine Nicotine Trazodone 08/17/2024 12:20 PM [facility] Urine URINE / Unknown Collection / Unknown 08/16/2024 10:01 PM [facility] [employer] FABRICATOR 08/16/2024 10:20 PM [facility]YL WELDER AND FABRICATOR Narrative [facility] - 08/17/2024 12:20 PM VINYL WELDER AND FABRICATOR Testing performed by Liquid Chromatography-Quadrupole Time Flight Mass Spectrometry. While mass spectrometry is highly sensitive and specific, false-positive and false-negative findings may occur in rare circumstances. If consultation is needed, please contact the Clinical Pathology Resident habilitation training specialist at [phone] (M-F, 8 am ? 5 pm) or [phone] after hours. This test does not include THC or barbiturates. This testing was developed by the [facility] in keeping with CLIA requirements. The test has not been cleared or approved by the U.S. Food and Drug Administration. Can Woo MD LAB - URINE CHEMISTR Y ORDERABLES [facility] [address] [place] [address], [facility] [phone] * CULTURE URINE (08/16/2024 7:46 PM VINYL WELDER AND FABRICATOR) Culture Urine No growth (<100 CFU/mL) ARLEN 08/18/2024 12:06 AM VINYL WELDER AND FABRICATOR [facility] Urine URINE SPECIMEN OBTAINED BY CLEAN CATCH PROCEDURE / Unknown Collection / Unknown 08/16/2024 7:46 PM [facility]DER AND FABRICATOR 08/16/2024 7:53 PM VINYL WELDER AND FABRICATOR Can Woo MD LAB - MICROBIOLOGY O RDERABLES [facility] [address] [place] [address], [facility] [phone] * (ABNORMAL) BLOOD GASES ART + COOX PANEL (08/16/2024 7:01 PM VINYL WELDER AND FABRICATOR) pH Arterial 7.29(L) 7.35 - 7.45 pH 08/16/2024 7:11 PM [facility] pO2 Arterial 61(L) 80 - 100 mmHg 08/16/2024 7:11 PM [facility] pCO2 Arterial 42 35 - 45 mmHg 7:11 PM [facility] HCO3 Arterial 20.2 20.0 - 30.0 mmol/L 08/16/2024 7:11 PM [facility] BE Arterial -6.1(L) -2.0 - 2.0 mmol/L 08/16/2024 7:11 PM [facility] Oxyhemoglobin Arterial 90.1 % 08/16/2024 7:11 PM [facility] Dexoyhemoglobin (HHB) % 7.0 % 08/16/2024 7:11 PM [facility] Methemoglobin <0.8 0.0 - 2.0 % 08/16/2024 7:11 PM [facility] Carboxyhemoglobin 2.6(H) 0.0 - 2.0 % 2023 7:11 PM [facility] O2 Content Arterial 16.8 Interpret within clinical context ml/dL 08/16/2024 7:11 PM [facility] Hemoglobin by COOX 13.3 12.0 - 17.6 g/dL 08/16/2024 7:11 PM [facility] O2 Saturation Arterial 93 90 - 100 % 08/16/2024 7:11 PM [facility] FI O2 Arterial 21.0 % 08/16/2024 7:11 PM [facility] Blood, arterial ARTERIAL BLOOD SPECIMEN / Unknown Arterial Puncture / Unknown 08/16/2024 7:01 PM [facility] AND FABRICATOR 08/16/2024 7:09 PM VINYL WELDER AND FABRICATOR Narrative [facility] - 08/16/2024 7:11 PM VINYL WELDER AND FABRICATOR Carboxyhemoglobin Normal Concentration: Non-smokers: 0-2%; Smokers: 0-9%; Toxic: >20% Can Woo MD LAB - BLOOD GASES OR DERABLES Performing Organization Address City/[facility]/ZIP Co de Phone Number [facility] [address] [place] [address], [place] [phone] * LACTIC ACID BLOOD REFLEX TO REPEAT (08/16/2024 3:18 PM [facility] WELDER AND FABRICATOR) Lactic Acid-Stat 1.7 <=2.0 mmol/L 08/16/2024 3:51 PM [facility] Blood BLOOD SPECIMEN / Unknown Venipuncture / Unknown 08/16/2024 3:18 PM [facility]EL[employer] AND FABRICATOR 08/16/2024 3:26 PM VINYL WELDER AND FABRICATOR Can Woo MD LAB - CHEMISTRY ORDE RABLES [facility] [address] [place] [address], [place] [phone] * (ABNORMAL) URINE MICROSCOPIC ONLY REFLEX TO CULTURE (08/16/2024 9:23 AM [facility] WELDER AND FABRICATOR) Reflex Status Culture not indicated 08/16/2024 10:57 AM [facility] RBC UA 6-10(A) None Seen, 0-2, 3-5 /HPF 08/16/2024 10:57 AM [facility] WBC UA 0-5 None Seen, 0-5 /HPF 08/16/2024 10:57 AM [facility] Bacteria UA 1+(A) None /HPF 08/16/2024 10:57 AM [facility] Squamous Epithelial Cells UA 6-10(A) None Seen, 0-2, 3-5 /HPF 08/16/2024 10:57 AM [facility] Mucus UA 2+ /LPF 08/16/2024 10:57 AM [facility] Hyaline Casts UA 3-5(A) None Seen, 0-2 /LPF 08/16/2024 10:57 AM [facility] Urine URINE SPECIMEN OBTAINED BY CLEAN CATCH PROCEDURE / Unknown Collection / Unknown 08/16/2024 9:23 AM [facility]ELDER AND FABRICATOR 08/16/2024 9:44 AM [facility] Cresencio Gonzalez MD LAB - URINALYSIS O RDERABLES [address] [address], [facility] [phone] * (ABNORMAL) URINALYSIS REFLEX MICROSCOPIC REFLEX CULTURE (08/16/2024 9:23 AM VINYL WELDER AND FABRICATOR) Color UA Rosario(A) Straw, Yellow 08/16/2024 9:53 AM [facility] Clarity UA Slt Cloudy(A) Clear 08/16/2024 9:53 AM [facility] Specific [place] UA 1.041(H) 1.005 - 1.030 08/16/2024 9:53 AM [facility] pH UA 5.0 5.0 - 8.0 pH 08/16/2024 9:53 AM [facility] Protein UA 1+(A) Negative 08/16/2024 9:53 AM [facility] Glucose UA Negative Negative 08/16/2024 9:53 AM [facility] Ketone UA Negative Negative 08/16/2024 9:53 AM [facility] Bilirubin UA Negative Negative 08/16/2024 9:53 AM [facility] Blood UA 3+(A) Negative 08/16/2024 9:53 AM [facility] Nitrite UA Negative Negative 08/16/2024 9:53 AM [facility] Leukocyte Esterase Negative Negative 08/16/2024 9:53 AM [facility] Urobilinogen UA 2.0(A) Negative mg/dL 08/16/2024 9:53 AM [facility] Urine URINE SPECIMEN OBTAINED BY CLEAN CATCH PROCEDURE / Unknown Collection / Unknown 08/16/2024 9:23 AM [facility] AND FABRICATOR 08/16/2024 9:44 AM VINYL WELDER AND FABRICATOR Narrative [facility] - 08/16/2024 9:53 AM VINYL WELDER AND FABRICATOR Cresencio Gonzalez MD LAB - URINALYSIS O RDERABLES [address] [address], [facility] [phone] * UREA NITROGEN URINE RANDOM (08/16/2024 9:23 AM VINYL WELDER AND FABRICATOR) Urea Nitrogen Random Urine 310 Not Established mg/dL 08/16/2024 10:08 AM [facility] Urine URINE SPECIMEN OBTAINED BY CLEAN CATCH PROCEDURE / Unknown Collection / Unknown 08/16/2024 9:23 AM [facility] AND FABRICATOR 08/16/2024 9:44 AM [facility] WELDER AND FABRICATOR Francesco Malik MD LAB - URINE AIRLINE TICKET AGENT RY ORDERABLES [address] [address], [place] [phone] * (ABNORMAL) URINE DRUG SCREEN IMMUNOASSAY (08/16/2024 9:23 AM VINYL WELDER AND FABRICATOR) Amphetamines Screen Urine Negative Negative : < 1000 ng/mL 08/16/2024 10:07 AM [facility] Barbiturates Screen Urine Negative Negative : < 200 ng/mL 08/16/2024 10:07 AM [facility] Benzodiazepine Screen Urine Negative Negative : < 200 ng/mL 08/16/2024 10:07 AM [facility] Opiates Urine Positive(A) Negative : < 300 ng/mL 08/16/2024 10:07 AM [facility] Comment:Positive urine opiat e screening results should be confirmed by another generally accepted non-immunological method such as gas chromatography or mass spectrometry. Cocaine Metabolites Urine Negative Negative : < 300 ng/mL 08/16/2024 10:07 AM [facility] Phencyclidine Screen Urine Negative Negative : < 25 ng/ml 08/16/2024 10:07 AM [facility] Cannabinoids Screen Urine Negative Negative : <50 ng/mL 08/16/2024 10:07 AM [facility] Methadone Screen Urine Negative Negative : < 300 ng/mL 08/16/2024 10:07 AM [facility] Fentanyl Screen Urine Positive(A) Negative : <1.5 ng/mL 08/16/2024 10:07 AM [facility] Comment:Positive urine fenta nyl screening results should be confirmed by another generally accepted non-immunological method such as gas chromatography or mass spectrometry. Urine URINE / Unknown Collection / Unknown 08/16/2024 9:23 AM [facility] 08/16/2024 9:44 AM [facility] - 08/16/2024 10:07 AM [facility] The Urine Toxicology Screening Panel does not screen for Propoxyphene, Meprobamate, Carisoprodol, Trazodone, iqoc-aim-uwrudks medications and/or volatiles (Acetone, Isopropanol, Methanol or Ethylene Glycol). Ethanol, Salicylate, Acetaminophen, Tricyclic Antidepressants and several therapeutic drugs may be individually assayed in serum or plasma specimen. Toxicology testing by the [facility] is an aid to medical diagnosis and treatment of patients. No documented chain of custody was maintained. Results are intended to be used for clinical purposes only. ? Cresencio Gonzalez MD LAB - URINE CHEMIS TRY ORDERABLES [facility] [address] [place] [address], [facility] [phone] * CREATININE URINE RANDOM (08/16/2024 9:23 AM VINYL WELDER AND FABRICATOR) Creatinine Urine 113.55 Not Established mg/dL 08/16/2024 10:08 AM VINYL WELDER AND FABRICATOR [facility] Urine URINE SPECIMEN OBTAINED BY CLEAN CATCH PROCEDURE / Unknown Collection / Unknown 08/16/2024 9:23 AM [facility] WELDER AND FABRICATOR 08/16/2024 9:44 AM VINYL WELDER AND FABRICATOR Francesco Malik MD LAB - URINE AIRLINE TICKET AGENT RY ORDERABLES Performing Organization Address City/[facility]/ZIP Co de Phone Number [facility] [address] [place] [address], [facility] [phone] * LYTES (NA K) URINE RANDOM PANEL (08/16/2024 9:23 AM VINYL WELDER AND FABRICATOR) Sodium Urine 60 Not Established mmol/L 08/16/2024 10:08 AM [facility] Potassium Urine 22.6 Not Established mmol/L 08/16/2024 10:08 AM [facility] Urine URINE SPECIMEN OBTAINED BY CLEAN CATCH PROCEDURE / Unknown Collection / Unknown 08/16/2024 9:23 AM [facility]EL[facility] AND FABRICATOR 08/16/2024 9:44 AM VINYL WELDER AND FABRICATOR Francesco Malik MD LAB - URINE AIRLINE TICKET AGENT RY ORDERABLES [facility] [address] [place] [phone], [facility] [phone] * (ABNORMAL) TRICYCLICS SCREEN BLOOD (08/16/2024 8:52 AM VINYL WELDER AND FABRICATOR) Tricyclic Antidepressants 248(H) 80 - 200 ng/mL 08/16/2024 9:39 AM [facility] Blood BLOOD SPECIMEN / Unknown Venipuncture / Unknown 08/16/2024 8:52 AM [facility] 08/16/2024 9:03 AM [facility] - 08/16/2024 9:39 AM [facility] Many drugs significantly cross-react with this [...] - CHEMISTRY OR DERABLES Performing Organization Address City/State/[facility] Co de Phone Number [facility] [address] [place] [phone], [facility] [phone] * (ABNORMAL) HEPATIC FUNCTION PANEL (08/16/2024 8:52 AM [facility]) Protein Total 5.7(L) 6.0 - 8.3 g/dL 9:36 AM [facility] Albumin 2.7(L) 3.4 - 5.0 g/dL 08/16/2024 9:36 AM [facility] Bilirubin Total 0.4 0.2 - 1.2 mg/dL 08/02 9:36 AM [facility] Bilirubin Conjugated 0.3 0.1 - 0.5 mg/dL 08/16/2024 9:36 AM [facility] Bilirubin Unconjugated 0.1 Unconjugated Bilirubin is a calculated value: Reference ranges have not been established. mg/dL 08/16/2024 9:36 AM [facility] Alkaline Phosphatase 64 40 - 150 U/L 08/16/2024 9:36 AM [facility] ALT 41 5 - 55 U/L 08/16/2024 9:36 AM [facility] AST 78(H) 5 - 34 U/L 08/16/2024 9:36 AM [facility] Albumin/Globulin Ratio 0.9(L) 1.1 - 2.3 08/16/2024 9:36 AM [facility] Blood BLOOD SPECIMEN / Unknown Venipuncture / Unknown 08/16/2024 8:52 AM [facility]EL[facility] AND FABRICATOR 08/16/2024 9:12 AM [facility]INYL WELDER AND FABRICATOR Francesco Malik MD LAB - CHEMISTRY ORD ERABLES Performing Organization Address City/[facility]/ZIP Co de Phone Number [address] [address], [facility] [phone] * (ABNORMAL) SALICYLATE LEVEL BLOOD (08/16/2024 8:52 AM VINYL WELDER AND FABRICATOR) Salicylate <5(L) 15 - 30 mg/dL 08/16/2024 9:36 AM [facility] Blood BLOOD SPECIMEN / Unknown Venipuncture / Unknown 08/16/2024 8:52 AM [facility]INYL WELDER AND FABRICATOR 08/16/2024 9:12 AM VINYL WELDER AND FABRICATOR [facility] - 08/16/2024 9:36 AM VINYL WELDER AND FABRICATOR This test is not intended for use with low-dose aspirin therapy. Most patients on low-dose aspirin for cardiovascular prophylaxis will have serum concentrations near or below the lower limit of the analytical range. Cresencio Gonzalez MD LAB - CHEMISTRY OR DERABLES Performing Organization Address [facility] Co de Phone Number [address] [address], [facility] [phone] * ACETAMINOPHEN LEVEL (08/16/2024 8:52 AM VINYL WELDER AND FABRICATOR) Acetaminophen <3.0 <3.0 ug/mL 08/16/2024 9:36 AM [facility] Blood BLOOD SPECIMEN / Unknown Venipuncture / Unknown 08/16/2024 8:52 AM [facility]ELDER AND FABRICATOR 08/16/2024 9:12 AM VINYL WELDER AND FABRICATOR [facility] - 08/16/2024 9:36 AM VINYL WELDER AND FABRICATOR Acetaminophen Toxicity Levels (Hours Post Ingestion): ? [...] may alter the peak level. Contact the [facility] at or reserved for healthcare professionals to assist you in evaluating potentially toxic acetaminophen levels. Cresencio Gonzalez MD LAB - CHEMISTRY OR DERABLES [address] [address], [facility] [phone] * XR PELVIS 1 OR 2VW (08/16/2024 7:20 AM VINYL WELDER AND FABRICATOR) Anatomical Region Laterality Modality Pelvis Digital Radiogra phy 08/16/2024 7:22 AM VINYL WELDER AND FABRICATOR Impressions 08/16/2024 3:31 PM VINYL WELDER AND FABRICATOR IMPRESSION: No acute displaced fracture or dislocation of pelvis is identified. Report dictated by Rafi Vicente MD (residential builder). IMason have personally reviewed and interpreted this examination/study. > Interpreting Provider: Mason Lucero on 08/16/2024 3:31 PM Narrative 08/16/2024 3:31 PM VINYL WELDER AND FABRICATOR EXAMINATION: XR PELVIS 1 OR 2VW DATE/TIME OF EXAM: ??08/16/2024 7:22 AM, LOCATION ??[facility] HISTORY: Trauma Fracture suspected COMPARISON: No prior [...] DATE/TIME OF EXAM: 08/16/2024 7:22 AM, LOCATION [facility] HISTORY: Trauma Fracture suspected COMPARISON: No prior [...] Report dictated by Rafi Vicente MD (residential builder). Mason Brizuela have personally reviewed and interpreted this examination/study. > Interpreting Provider: Mason Lucero on 08/16/2024 3:31 PM Cresencio Gonzalez MD DIAGNOSTIC IMAGING ORDERABLES * CT CHEST ABDOMEN PELVIS W CONT - Abdomen-pelvis trauma, blunt or penetrating (08/16/2024 6:58 AM VINYL WELDER AND FABRICATOR) Anatomical Region Laterality Modality Chest, Abdomen, Pelvis Computed Tomography 08/16/2024 8:11 AM VINYL WELDER AND FABRICATOR Impressions 08/16/2024 5:01 PM VINYL WELDER AND FABRICATOR Impression 1. No acute visceral, vascular, or [...] reflux/esophagitis. Report dictated by Bryon Watson MD(residential builder). Viviana Brizuela MD have personally reviewed and interpreted this examination/study. > Interpreting Provider: Viviana Rain MD on 08/16/2024 5:01 PM Narrative 08/16/2024 5:01 PM VINYL WELDER AND FABRICATOR PROCEDURE: ??CT CHEST ABDOMEN PELVIS W CONT, DATE/TIME OF EXAM: ??08/16/2024 7:20 AM, LOCATION ??[facility] INDICATION: Trauma COMPARISON: None. EXAMINATION: Computed tomography [...] CONT, DATE/TIME OF EXAM:08/16/2024 7:20 AM, LOCATION [facility] INDICATION: Trauma COMPARISON: None. EXAMINATION: Computed tomography [...] reflux/esophagitis. Report dictated by Bryon Watson MD(residential builder). I, Viviana Rain MD have personally reviewed and interpreted this examination/study. > Interpreting Provider: Viviana Rain MD on 08/16/2024 5:01 PM Cresencio Gonzalez MD CT ORDERABLES * CT Angio Lower Extremity Right (08/16/2024 6:58 AM VINYL WELDER AND FABRICATOR) Anatomical Region Laterality Modality Lower Extremity Computed Tomogra phy 08/16/2024 7:57 AM [facility]IN[facility] WELDER AND FABRICATOR Impressions 08/16/2024 5:06 PM VINYL WELDER AND FABRICATOR IMPRESSION: Three-vessel runoff of bilateral lower extremity arteries to the level of ankle. Of note, the dorsalis pedis and tibialis posterior arteries are diminutive bilaterally likely secondary to diffuse spasm but patent without evidence of contrast extravasation to suggest arterial injury or active bleeding. > Dictated by Felix Awad MD (residential builder). I, Viviana Rain MD have personally reviewed and interpreted this examination/study. > Interpreting Provider: Viviana Rain MD on 08/16/2024 5:06 PM Narrative 08/16/2024 5:06 PM VINYL WELDER AND FABRICATOR PROCEDURE: ??CT ANGIO LOWER EXTREMITY RIGHT, CT ANGIO LOWER EXTREMITY LEFT, DATE/TIME OF EXAM: ??08/16/2024 7:20 AM, LOCATION ??[facility] INDICATION: W10.8XXA: Fall (on) (from) other stairs [...] DATE/TIME OF EXAM: 08/16/2024 7:20 AM, LOCATION [facility] INDICATION: W10.8XXA: Fall (on) (from) other stairs [...] > Dictated by Felix Awad MD (residential builder). Viviana Brizuela MD have personally reviewed and interpreted this examination/study. > Interpreting Provider: Viviana Rain MD on 08/16/2024 5:06 PM Chet Henning MD CT ORDERABLES * CT Angio Lower Extremity Left (08/16/2024 6:58 AM VINYL WELDER AND FABRICATOR) Anatomical Region Laterality Modality Lower Extremity Computed Tomogra phy 08/16/2024 7:57 AM [facility]INYL WELDER AND FABRICATOR Impressions 08/16/2024 5:06 PM VINYL WELDER AND FABRICATOR IMPRESSION: Three-vessel runoff of bilateral lower extremity arteries to the level of ankle. Of note, the dorsalis pedis and tibialis posterior arteries are diminutive bilaterally likely secondary to diffuse spasm but patent without evidence of contrast extravasation to suggest arterial injury or active bleeding. > Dictated by Felix Awad MD (residential builder). Viviana Brizuela MD have personally reviewed and interpreted this examination/study. > Interpreting Provider: Viviana Rain MD on 08/16/2024 5:06 PM Narrative 08/16/2024 5:06 PM VINYL WELDER AND FABRICATOR PROCEDURE: ??CT ANGIO LOWER EXTREMITY RIGHT, CT ANGIO LOWER EXTREMITY LEFT, DATE/TIME OF EXAM: ??08/16/2024 7:20 AM, LOCATION ??[facility] INDICATION: W10.8XXA: Fall (on) (from) other stairs [...] DATE/TIME OF EXAM: 08/16/2024 7:20 AM, LOCATION [facility] INDICATION: W10.8XXA: Fall (on) (from) other stairs [...] > Dictated by Felix Awad MD (residential builder). Viviana Brizuela MD have personally reviewed and interpreted this examination/study. > Interpreting Provider: Viviana Rain MD on 08/16/2024 5:06 PM Chet Henning MD CT ORDERABLES * CT LUMBAR SPINE WO CONTRAST - T/L-spine trauma, Spine fracture (08/16/2024 6:58 AM VINYL WELDER AND FABRICATOR) Anatomical Region Laterality Modality Spine Computed Tomogra phy 08/16/2024 6:28 AM [facility]INYL WELDER AND FABRICATOR Impressions 08/16/2024 10:30 AM [facility]INYL WELDER AND FABRICATOR IMPRESSION: 1.No acute intracranial hemorrhage, midline shift, [...] Report dictated by Rafi Vicente MD (residential builder). Ruby Brizuela MD have personally reviewed and interpreted this examination/study. > Interpreting Provider: Ruby Villanueva MD on 08/16/2024 10:30 AM Narrative 08/16/2024 10:30 AM [facility]IN[facility] WELDER AND FABRICATOR PROCEDURE: ??CT HEAD WO CONTRAST, CT LUMBAR SPINE WO CONTRAST, CT THORACIC SPINE WO CONTRAST, CT CERVICAL SPINE WO CONTRAST, DATE/TIME OF EXAM: 08/16/2024 7:20 AM, LOCATION ??[facility] INDICATION: Trauma EXAMINATION: 1.Computed tomography (CT) of [...] DATE/TIME OF EXAM: 08/16/2024 7:20 AM, LOCATION [facility] INDICATION: Trauma EXAMINATION: 1.Computed tomography (CT) of [...] Report dictated by Rafi Vicente MD (residential builder). Ruby Brizuela MD have personally reviewed and interpretedthis examination/study. > Interpreting Provider: Ruby Villanueva MD on 08/16/2024 10:30AM Cresencio Gonzalez MD CT ORDERABLES * CT THORACIC SPINE WO CONTRAST - T/L-spine trauma, spine fracture (08/16/2024 6:58 AM VINYL WELDER AND FABRICATOR) Anatomical Region Laterality Modality Spine Computed Tomogra phy 08/16/2024 6:28 AM VINYL WELDER AND FABRICATOR Impressions 08/16/2024 10:30 AM [facility]INYL WELDER AND FABRICATOR IMPRESSION: 1.No acute intracranial hemorrhage, midline shift, [...] Report dictated by Rafi Vicente MD (residential builder). Ruby Brizuela MD have personally reviewed and interpreted this examination/study. > Interpreting Provider: Ruby Villanueva MD on 08/16/2024 10:30 AM Narrative 08/16/2024 10:30 AM [facility]IN[facility] WELDER AND FABRICATOR PROCEDURE: ??CT HEAD WO CONTRAST, CT LUMBAR SPINE WO CONTRAST, CT THORACIC SPINE WO CONTRAST, CT CERVICAL SPINE WO CONTRAST, DATE/TIME OF EXAM: 08/16/2024 7:20 AM, LOCATION ??[facility] INDICATION: Trauma EXAMINATION: 1.Computed tomography (CT) of [...] DATE/TIME OF EXAM: 08/16/2024 7:20 AM, LOCATION [facility] INDICATION: Trauma EXAMINATION: 1.Computed tomography (CT) of [...] Report dictated by Rafi Vicente MD (residential builder). I, Ruby Villanueva MD have personally reviewed and interpretedthis examination/study. > Interpreting Provider: Ruby Villanueva MD on 08/16/2024 10:30AM Cresencio Gonzalez MD CT ORDERABLES * CT CERVICAL SPINE WO CONTRAST - C-Spine Trauma, Spine fracture (08/16/2024 6:58 AM [employer]IC[employer]) Anatomical Region Laterality Modality Spine Computed Tomogra phy 08/16/2024 6:28 AM [employer]IC[employer] Impressions 08/16/2024 10:30 AM [employer] FABRICATOR IMPRESSION: 1.No acute intracranial hemorrhage, midline shift, [...] Report dictated by Rafi Vicente MD (residential builder). IRuby MD have personally reviewed and interpreted this examination/study. > Interpreting Provider: Ruby Villanueva MD on 08/16/2024 10:30 AM Narrative 08/16/2024 10:30 AM [employer]RICATOR PROCEDURE: ??CT HEAD WO CONTRAST, CT LUMBAR SPINE WO CONTRAST, CT THORACIC SPINE WO CONTRAST, CT CERVICAL SPINE WO CONTRAST, DATE/TIME OF EXAM: 08/16/2024 7:20 AM, LOCATION ??[facility] INDICATION: Trauma EXAMINATION: 1.Computed tomography (CT) of [...] DATE/TIME OF EXAM: 08/16/2024 7:20 AM, LOCATION [facility] INDICATION: Trauma EXAMINATION: 1.Computed tomography (CT) of [...] Report dictated by Rafi Vicente MD (residential builder). Ruby Brizuela MD have personally reviewed and interpretedthis examination/study. > Interpreting Provider: Ruby Villanueva MD on 08/16/2024 10:30AM Cresencio Gonzalez MD CT ORDERABLES * CT HEAD WO CONTRAST - Head Trauma, CSF leak, mental status changes (08/16/2024 6:58 AM [employer] FABRICATOR) Anatomical Region Laterality Modality Head Computed Tomogra phy 08/16/2024 6:28 AM [employer] FABRICATOR Impressions 08/16/2024 10:30 AM [employer] FABRICATOR IMPRESSION: 1.No acute intracranial hemorrhage, midline shift, [...] Report dictated by Rafi Vicente MD (residential builder). IRuby MD have personally reviewed and interpreted this examination/study. > Interpreting Provider: Ruby Villanueva MD on 08/16/2024 10:30 AM Narrative 08/16/2024 10:30 AM [employer]RICATOR PROCEDURE: ??CT HEAD WO CONTRAST, CT LUMBAR SPINE WO CONTRAST, CT THORACIC SPINE WO CONTRAST, CT CERVICAL SPINE WO CONTRAST, DATE/TIME OF EXAM: 08/16/2024 7:20 AM, LOCATION ??[facility] INDICATION: Trauma EXAMINATION: 1.Computed tomography (CT) of [...] DATE/TIME OF EXAM: 08/16/2024 7:20 AM, LOCATION [facility] INDICATION: Trauma EXAMINATION: 1.Computed tomography (CT) of [...] Report dictated by Rafi Vicente MD (residential builder). Ruby Brizuela MD have personally reviewed and interpretedthis examination/study. > Interpreting Provider: Ruby Villanueva MD on 08/16/2024 10:30AM Cresencio Gonzalez MD CT ORDERABLES * XR CHEST 1VW PORTABLE (08/16/2024 6:11 AM [employer] FABRICATOR) Anatomical Region Laterality Modality Chest Digital Radiogra phy 08/16/2024 6:04 AM [employer] FABRICATOR Narrative 08/16/2024 2:29 PM [employer] F[employer]RICATOR PROCEDURE: ??XR CHEST 1VW PORTABLE, DATE/TIME OF EXAM: ??08/16/2024 5:44 AM, LOCATION ??[facility] INDICATION: Trauma ADDITIONAL CLINICAL INFORMATION: Ordering Provider [...] Report dictated by Rafi Vicente MD (residential builder). Mason Brizuela have personally reviewed and interpreted this examination/study. > Interpreting Provider: Mason Lucero on 08/16/2024 2:29 PM Procedure Note Mason Lucero MD - 08/16/2024 PROCEDURE: XR CHEST 1VW PORTABLE, DATE/TIME OF EXAM: 08/16/2024 5:44AM, LOCATION [facility] INDICATION: Trauma ADDITIONAL CLINICAL INFORMATION: Ordering Provider [...] Report dictated by Rafi Vicente MD (residential builder). I, Mason Lucero have personally reviewed and interpreted this examination/study. > Interpreting Provider: Mason Lucero on 08/16/2024 2:29 PM Cresencio Gonzalez MD DIAGNOSTIC IMAGING ORDERABLES * PTT [facility] (08/16/2024 5:50 AM [employer] FABRICATOR) APTT 27.4 23.0 - 38.4 Seconds 08/16/2024 6:38 AM [employer] FABRICATOR [facility] Comment:Suggested therapeuti c range for full dose I.V. unfractionated heparin therapy for venous thromboembolism is 71 to 109 seconds. Blood BLOOD SPECIMEN / Unknown Venipuncture / Unknown 08/16/2024 5:50 AM [employer] FABRICATOR 08/16/2024 6:12 AM [employer] W[employer] AND FABRICATOR Cresencio Gonzalez MD LAB - COAGULATION ORDERABLES Performing Organization Address [facility]/State/ZIP Co de Phone Number [facility] [address] [address], [facility] [phone] * TYPE + SCREEN PANEL (08/16/2024 5:50 AM [employer]INYL WELDER AND FABRICATOR) Antibody Screen NEG 6:49 AM [employer] WELDER [employer] FABRICATOR [facility] ABO Rh B POS 08/16/2024 6:49 AM [employer] W[employer] AND FABRICATOR [facility] Blood Bank BLOOD SPECIMEN / Unknown Venipuncture / Unknown 08/16/2024 5:50 AM [employer] AND FABRICATOR 08/16/2024 6:13 AM [employer] AND FABRICATOR Cresencio Gonzalez MD LAB - BLOOD BANK O RDERABLES Performing Organization Address [facility] de Phone Number [facility] [address] [place] [address], [facility] [phone] * LIPASE BLOOD (08/16/2024 5:50 AM [employer]IN[employer] WELDER AND FABRICATOR) Lipase 13 8 - 78 U/L 08/16/2024 6:31 AM [facility] Blood BLOOD SPECIMEN / Unknown Venipuncture / Unknown 08/16/2024 5:50 AM [employer] AND FABRICATOR 08/16/2024 6:10 AM [facility] - 08/16/2024 6:31 AM [facility] Lipase results from the [employer] Alinity analyzer may not be comparable with other methodologies. Cresencio Gonzalez MD LAB - CHEMISTRY OR DERABLES Performing Organization Address [facility] de Phone Number [facility] [address] [place] [address], [facility] [phone] * ALCOHOL ETHYL BLOOD (08/16/2024 5:50 AM [employer] W[employer] AND FABRICATOR) Ethanol (mg/dL) <10 <10 mg/dL 6:31 AM [facility] Ethanol Calculated (g/dL) <0.010 <=0.010 g/dL 08/16/2024 6:31 AM [facility] Blood BLOOD SPECIMEN / Unknown Venipuncture / Unknown 08/16/2024 5:50 AM [employer] FABRICATOR 08/16/2024 6:10 AM [facility] Narrative [facility] - 08/16/2024 6:31 AM [facility] Ethanol Interp <10: None Detected. 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
--- OUTSIDE RECORDS SUMMARY | 2024-08-20 14:24 | XMS_ITS | Referral Summary ---
Author Organization [facility] Address [address] [place] [address] Care Team Providers Care Rock Mason Apprentice Name Role Phone Mark Carmichael DO Primary Care Provider [phone] Source Comments [facility],non-owned Affiliates and Associated Physician Practices is amultiple site organization consisting of ambulatory clinics and hospital sitesin [place], [place], [place] and [place]. This disclosure is being madepursuant to the Care Everywhere program and may not contain all information available regarding this patient. Last updated 18.[facility] Encounters Date Type Department Care Team Description 4 5:26 AM DELTA SYSTEM [employer] - 4 11:57 AM [employer] Hospital Encounter [facility] 8S ACUTE [address] [place] [address] Chet Henning MD Yogendran, Rajiv L, MD Behr, Christopher A, MD Stoeckel, David A, MD Barrios, Christopher R, MD Ishiyama, Takaaki, MD Emergency Medicine Discharge Disposition: Home or Self Care 4 11:27 AM [employer] Anesthesia Event [facility] ENDOSCOPY [address] [place] [address] Willian Cheung MD McGee, Jeffrey, Anes Asst 4 2:30 PM [employer] - 4 3:30 PM [employer] Surgery [facility] ENDOSCOPY [address] [place] [address] Raymond Miller MD ESOPHAGOGASTRODUODENOSCOPY (EGD) /ESOPHAGOSCOPY WITH [...] and heating? Not hard at all 08/20/2024 [facility] [place] of Occupat ional Health - Occupational Stress [...] any time in the past 12 m [facility], were you homeless or living in a halfway (including now)? No 08/20/2024 Sex and Gender Information Value Date Recorded Sex Assigned at Not on file Gender Identity Not on file Sexual Orientation Not on file Last Filed Vital Signs Vital Sign Reading Time Taken Comments Blood Pressure 164/85 08/20/2024 11:05 AM [employer] Pulse 60 08/20/2024 11:05 AM [employer] Temperature 36.8 ??C (98.3 ??F) 08/20/2024 11:[address] Respiratory Rate 20 08/20/2024 11:05 AM [employer] Oxygen Saturation 97% 08/20/2024 11:05 AM [employer] Inhaled Oxygen Concentration - - Weight 74.5 kg (164 lb 3.2 oz) 08/18/2024 4:00 A M [employer] Height 182.9 cm (6') 08/16/2024 5:26 AM [employer] Body Mass Index 22.27 08/16/2024 5:26 AM [employer] Functional Status Functional Status Response Date of [...] Office Visit [facility] - GI [address] [place] [address], [place] [address] Raymond Miller MD [address] [place] [address] Procedures Procedure Name Priority Date/Time Associated Diagnosis Comments CBC W AUTO DIFFERENTIAL Routine 08/20/2024 5:49 AM [employer] COMPREHENSIVE METABOLIC PANEL Routine 08/20/2024 5:49 AM [employer] MAGNESIUM BLOOD Routine 08/20/2024 5:49 AM [employer] PHOSPHORUS BLOOD Routine 08/20/2024 5:49 AM [employer] ENDOSCOPIC ULTRASONOGRAPHY, GI Routine 08/19/2024 11:04 AM [employer] CBC W AUTO DIFFERENTIAL Routine 08/19/2024 7:43 AM [employer] COMPREHENSIVE METABOLIC PANEL Routine 08/19/2024 7:43 AM [employer] MAGNESIUM BLOOD Routine 08/19/2024 7:43 AM [employer] PHOSPHORUS BLOOD Routine 08/19/2024 7:43 AM [employer] LACTIC ACID BLOOD Routine 08/18/2024 6:4 0 AM [employer] CBC W AUTO DIFFERENTIAL Routine 08/18/2024 6:40 AM [employer] COMPREHENSIVE METABOLIC PANEL Routine 08/18/2024 6:40 AM [employer] MAGNESIUM BLOOD Routine 08/18/2024 6:40 AM [employer] PHOSPHORUS BLOOD Routine 08/18/2024 6:40 AM [employer] PT-INR [facility] Routine 08/18/2024 6:40 AM [employer] ECHO COMPLETE W CONTRAST Routine 08/17/2024 2:37 PM [employer] Shock (HCC) EKG 12-LEAD Routine 08/17/2024 12:32 PM [employer] Elevated CK WILIAM (acute kidney injury) (HCC) BASIC METABOLIC PANEL (CALCIUM TOTAL) STAT 08/17/2024 5:13 AM [employer] CBC W/O DIFFERENTIAL STAT 08/17/2024 5:13 AM [employer] LACTIC ACID BLOOD STAT 08/17/2024 5:1 3 AM [employer] TSH Routine 08/17/2024 4:07 AM [employer] SYPHILIS ANTIBODY CASCADING REFLEX AM Draw 08/17/2024 4:07 AM [employer] VITAMIN B12 AM Draw 08/17/2024 4:07 AM [employer] HEMOGLOBIN A1C Routine 08/17/2024 4:07 AM [employer] LACTIC ACID BLOOD Routine 08/17/2024 4:0 7 AM [employer] CK BLOOD Routine 08/17/2024 4:07 AM [employer] CBC W AUTO DIFFERENTIAL Routine 08/17/2024 4:07 AM [employer] COMPREHENSIVE METABOLIC PANEL Routine 08/17/2024 4:07 AM [employer] MAGNESIUM BLOOD Routine 08/17/2024 4:07 AM [employer] PHOSPHORUS BLOOD Routine 08/17/2024 4:07 AM [employer] PT-INR [facility] Routine 08/17/2024 4:07 AM [employer] GLUCOSE - POINT OF CARE Routine 08/17/2024 4:05 AM [employer] GLUCOSE - POINT OF CARE Routine 08/17/2024 12:29 AM [employer] EKG 12-LEAD STAT 08/16/2024 10:17 PM [employer] Elevated CK GLUCOSE - POINT OF CARE Routine 08/16/2024 10:14 PM [employer] DRUG SCREEN EXPANDED TOXICOLOGY URINE PANEL Routine 08/16/2024 10:01 PM [employer] CULTURE BLOOD Timed 08/16/2024 8:33 PM [employer] CULTURE BLOOD Timed 08/16/2024 8:15 PM [employer] CULTURE URINE Routine 08/16/2024 7:46 PM [employer] PHOSPHORUS BLOOD STAT 08/16/2024 7:05 PM [employer] MAGNESIUM BLOOD STAT 08/16/2024 7:05 PM [employer] LACTIC ACID BLOOD STAT 08/16/2024 7: 05 PM [employer] COMPREHENSIVE METABOLIC PANEL STAT 08/16/2024 7:05 PM [employer] CBC W AUTO DIFFERENTIAL STAT 08/16/2024 7:05 PM [employer] BLOOD GASES ART + COOX PANEL Routine 08/16/2024 7:01 PM [employer] LACTIC ACID BLOOD REFLEX TO REPEAT STAT 08/16/2024 3:18 PM [employer] BASIC METABOLIC PANEL (CALCIUM TOTAL) STAT 08/16/2024 10:34 AM [employer] CK BLOOD STAT 08/16/2024 10:34 AM [employer] URINE MICROSCOPIC ONLY REFLEX TO CULTURE STAT 08/16/2024 9:23 AM [employer] UREA NITROGEN URINE RANDOM STAT 08/16/2024 9:23 AM [employer] CREATININE URINE RANDOM STAT 08/16/2024 9:23 AM [employer] LYTES (NA K) URINE RANDOM PANEL STAT 08/16/2024 9:23 AM [employer] URINALYSIS REFLEX MICROSCOPIC REFLEX CULTURE STAT 08/16/2024 9:23 AM [employer] URINE DRUG SCREEN IMMUNOASSAY STAT 08/16/2024 9:23 AM [employer] HEPATIC FUNCTION PANEL STAT 12/15/202 4 8:52 AM [employer] ACETAMINOPHEN LEVEL STAT 08/16/2024 8 :52 AM [employer] TRICYCLICS SCREEN BLOOD STAT 08/16/2024 8:52 AM [employer] SALICYLATE LEVEL BLOOD STAT 8:52 AM [employer] XR PELVIS 1 OR 2VW STAT 08/16/2024 7: 20 AM [employer]ER Fall (on) (from) other stairs and steps, initial encounter CT ANGIO LOWER EXTREMITY RIGHT STAT 08/16/2024 6:58 AM [employer] Fall (on) (from) other stairs and steps, initial encounter CT ANGIO LOWER EXTREMITY LEFT STAT 08/16/2024 6:58 AM [employer] Fall (on) (from) other stairs and steps, initial encounter CT LUMBAR SPINE WO CONTRAST STAT 08/16/2024 6:58 AM [employer] Fall (on) (from) other stairs and steps, initial encounter CT THORACIC SPINE WO CONTRAST STAT 08/16/2024 6:58 AM [employer] Fall (on) (from) other stairs and steps, initial encounter CT CHEST ABDOMEN PELVIS W CONT STAT 08/16/2024 6:58 AM [employer] Fall (on) (from) other stairs and steps, initial encounter CT CERVICAL SPINE WO CONTRAST STAT 08/16/2024 6:58 AM [employer] Fall (on) (from) other stairs and steps, initial encounter CT HEAD WO CONTRAST STAT 08/16/2024 6 :58 AM [employer] Fall (on) (from) other stairs and steps, initial encounter XR CHEST 1VW PORTABLE STAT 08/16/2024 6:11 AM [employer] Fall (on) (from) other stairs and steps, initial encounter TYPE + SCREEN PANEL STAT 08/16/2024 5 :50 AM [employer]TA SYSTEM [employer] PT-INR [facility] STAT 08/16/2024 5:50 AM DELTA SYSTEM [employer] CLE[employer]ER PTT [facility] STAT 08/16/2024 5:50 AM DEL[employer] SYSTEM [employer] LIPASE BLOOD STAT 08/16/2024 5:50 AM DELTA SYSTEM [employer]ER CBC W AUTO DIFFERENTIAL STAT 08/16/2024 5:50 AM [employer] BASIC METABOLIC PANEL (CALCIUM TOTAL) STAT 08/16/2024 5:50 AM [employer] SYSTEM [employer] ALCOHOL ETHYL BLOOD STAT 08/16/2024 5 :50 AM DELTA SYSTEM [employer] from Last 3 Months Results * (ABNORMAL) CBC W AUTO DIFFERENTIAL (08/20/2024 5:49 AM DELTA SYSTEM [employer]) Only the most recent of6 resultswithin the time period is included. WBC 3.6(L) 4.0 - 10.7 x10E9/L 08/20/2024 6:56 AM [facility] RBC Count 3.32(L) 4.30 - 5.80 x10E12/L 08/20/2024 6:56 AM [facility] Hemoglobin 11.3(L) 13.3 - 17.5 g/dL 08/20/2024 6:56 AM [facility] Hematocrit 32.1(L) 38.7 - 51.1 % 08/20/2024 6:56 AM [facility] MCV 96.7 80.0 - 98.0 fL 08/20/2024 6:56 AM [facility] MCH 34.0(H) 26.7 - 33.6 pg 08/20/2024 6:56 AM [facility] MCHC 35.2 31.7 - 36.3 g/dL 08/20/2024 6:56 AM [facility] RDW-CV 12.2 11.3 - 14.8 % 08/20/2024 6:56 AM [facility] Platelet Count 141(L) 150 - 420 x10E9/L 08/20/2024 6:56 AM [facility] MPV 10.0 7.8 - 11.4 fL 08/20/2024 6:56 AM [facility] Neutrophil % 57.6 41.0 - 74.0 % 08/20/2024 6:56 AM [facility] Lymphocyte % 27.2 17.0 - 47.0 % 08/20/2024 6:56 AM [facility] Monocyte % 10.8 3.0 - 11.0 % 08/20/2024 6:56 AM [facility] Eosinophil % 3.3 0.0 - 7.0 % 08/20/2024 6:56 AM [facility] Basophil % 0.3 0.0 - 1.6 % 08/20/2024 6:56 AM [facility] Immature Granulocytes % 0.8 0.0 - 1.0 % 08/20/2024 6:56 AM [facility] Neutrophil Absolute 2.07 1.60 - 7.50 x10E9/L 08/20/2024 6:56 AM [facility] Lymphocyte Absolute 0.98(L) 1.00 - 4.40 x10E9/L 08/20/2024 6:56 AM [facility] Monocyte Absolute 0.39 0.15 - 1.00 x10E9/L 08/20/2024 6:56 AM [facility] Eosinophil Absolute 0.12 0.00 - 0.60 x10E9/L 08/20/2024 6:56 AM [facility] Basophil Absolute 0.01 0.00 - 0.13 x10E9/L 08/20/2024 6:56 AM [facility] Blood BLOOD SPECIMEN / Unknown Lab Venipuncture / Unknown 08/20/2024 5:49 AM [employer] 08/20/2024 6:35 AM [facility] Can Woo MD LAB - HEMATOLOGY ORD ERABLES [facility] [address] [place] [address], [facility] [phone] * (ABNORMAL) COMPREHENSIVE METABOLIC PANEL (08/20/2024 5:49 AM [facility]) Only the most recent of5 resultswithin the time period is included. BUN 13 7 - 26 mg/dL 08/20/2024 7:13 AM [facility] Creatinine 0.84 0.71 - 1.16 mg/dL 08/20/2024 7:13 AM [facility] Sodium 140 136 - 145 mmol/L 08/20/2024 7:13 AM [facility] Potassium 4.1 3.5 - 4.5 mmol/L 08/20/2024 7:13 AM [facility] Chloride 110(H) 98 - 107 mmol/L 08/20/2024 7:13 AM [facility] CO2 24 22 - 29 mmol/L 08/20/2024 7:13 AM [facility] Glucose 76 70 - 99 mg/dL 08/20/2024 7:13 AM [facility] Calcium 8.2(L) 8.4 - 10.2 mg/dL 08/20/2024 7:13 AM [facility] Protein Total 5.0(L) 6.0 - 8.3 g/dL 08/20/2024 7:13 AM [facility] Albumin 2.4(L) 3.4 - 5.0 g/dL 08/20/2024 7:13 AM [facility] Bilirubin Total 0.4 0.2 - 1.2 mg/dL 08/20/2024 7:13 AM [facility] Alkaline Phosphatase 44 40 - 150 U/L 08/20/2024 7:13 AM [facility] ALT 34 5 - 55 U/L 08/20/2024 7:13 AM [facility] AST 39(H) 5 - 34 U/L 08/20/2024 7:13 AM [facility] Anion Gap 6 6 - 16 08/20/2024 7:13 AM [facility] BUN/Creatinine Ratio 15 7 - 23 08/20/2024 7:13 AM [facility] Osmolality Calculated 289 275 - 295 mOsm/kg 08/20/2024 7:13 AM [facility] Albumin/Globulin Ratio 0.9(L) 1.1 - 2.3 08/20/2024 7:13 AM [employer] [facility] eGFR by CKD-EPI >90 >=90 mL/min/1.7 3 m2 08/20/2024 7:13 AM [employer] [facility] Blood BLOOD SPECIMEN / Unknown Lab Venipuncture / Unknown 08/20/2024 5:49 AM [employer] 08/20/2024 6:39 AM [employer] Can Woo MD LAB - CHEMISTRY BINDU BOO [facility] [address] [place] [address], [facility] [phone] * (ABNORMAL) PHOSPHORUS BLOOD (08/20/2024 5:49 AM [employer]) Only the most recent of5 resultswithin the time period is included. Phosphorus 2.6(L) 2.8 - 5.1 mg/dL 08/20/2024 7:13 AM [employer] [facility] Blood BLOOD SPECIMEN / Unknown Lab Venipuncture / Unknown 08/20/2024 5:49 AM [employer] 08/20/2024 6:39 AM [employer] Can Woo MD LAB - CHEMISTRY BINDU BOO Performing Organization Address City/[facility]/ZIP Co de Phone Number [address] [address], [place] [phone] * MAGNESIUM BLOOD (08/20/2024 5:49 AM [employer]) Only the most recent of5 resultswithin the time period is included. Magnesium 1.7 1.6 - 2.6 mg/dL 08/20/2024 7:13 AM [employer] [facility] Blood BLOOD SPECIMEN / Unknown Lab Venipuncture / Unknown 08/20/2024 5:49 AM [employer] 08/20/2024 6:39 AM [employer] Can Woo MD LAB - CHEMISTRY BINDU BOO Performing Organization Address City/[facility]/ZIP Co de Phone Number [address] [address], [facility] [phone] * Endoscopic Ultrasonography, GI (08/19/2024 11:04 AM [employer]) Report Endoscopy POC Endoscopy Department Report _ [...] and ?oxygen saturations were monitored continuously. The ?[id number] was introduced through the mouth, and ?advanced [...] Procedure Code(s): ? --- Professional --- ? 99258, Esophagogastroduodenos copy, flexible, transoral; with endoscopic ? ultrasound examination limited to the esophagus, stomach or duodenum, ? and adjacent structures Diagnosis Code(s): ?--- Professional --- ?K80.20, Calculus of gallbladder without ?cholecystitis without obstruction ?K86.9, Disease of pancreas, unspecified ?K83.8, Other specified diseases of biliary tract ?R93.2, Abnormal findings on diagnostic imaging of ?liver and biliary tract CPT copyright 2022 [employer]. All rights reserved. The codes documented in this report are preliminary and upon case coordinator review may be revised to meet current compliance requirements. Raymond Miller MD 08/19/2024 12:49:34 PM This report has been signed electronically. Note Initiated On: 08/19/2024 11:04 AM Number of Addenda: 0 ? [facility] ? [address] [place] [address] [facility] 08/19/2024 11:0 4 AM [employer] Narrative Procedure Note Kay Isidro MD - 08/19/2024 12:50 PM CST (No note.) Oscar Zendejas MD GI PROCEDURE ORDERAB LES Performing Organization Address City/[facility]/ZIP Co de Phone Number [facility] * PT-INR [facility] (08/18/2024 6:40 AM [employer]) Only the most recent of3 resultswithin the time period is included. PT 14.2 12.1 - 14.8 Seconds 08/18/2024 7:34 AM [employer] [facility] INR 1.1 See Comment 08/18/2024 7:34 AM [employer] [facility] Comment:The suggested therap eutic range for standard coumadin (warfarin) therapy is an INR of 2.0-3.0. For high-risk patients (Mechanical Mitral Valve Prosthesis, etc.), the suggested prophylactic therapeutic range is an INR of 2.5-3.5. Blood BLOOD SPECIMEN / Unknown Lab Venipuncture / Unknown 08/18/2024 6:40 AM [employer] 08/18/2024 7:13 AM [employer] Can Woo MD LAB - COAGULATION OR DERABLES [facility] [address] [place] [address], [facility] [phone] * LACTIC ACID BLOOD (08/18/2024 6:40 AM [employer]) Only the most recent of4 resultswithin the time period is included. Lactic Acid-Stat 1.1 <=2.0 mmol/L 08/18/2024 7:23 AM [employer] [facility] Blood BLOOD SPECIMEN / Unknown Lab Venipuncture / Unknown 08/18/2024 6:40 AM [employer] 08/18/2024 6:53 AM [employer] Can Woo MD LAB - CHEMISTRY BINDU BOO [facility] [address] [place] [address], [facility] [phone] * ECHO COMPLETE W CONTRAST (08/17/2024 2:37 PM [employer]) Pathologist [facility] LVOT diam 2.23 cm SSM CV FUJ [...] Region Laterality Modality Ultrasound 08/17/2024 1:34 PM [employer] Narrative 08/18/2024 8:50 AM [employer] Summary ??* The left ventricle is normal [...] 1955 Gender: ? Male Accession #: ? [id number] Ht: ? 65 in Wt: ? 155 lb BSA: ? 1.81 m2 HR: ? 69 bpm BP: ? 127 / ? 70 mmHg Heart Rhythm: ? Sinus Rhythm Exam Date: ? 08/17/2024 1:34 PM Exam Room: ? 411 Patient Status: ? O/P Study Site: ? [facility] Primary Location: ? [facility] EStudy Info Technical Quality: ? Fair [...] Can Woo Attending Physician: ? Can Woo Carpet Installer Helper: ? Kayley Koo RDCS Left Ventricle ??The [...] Exam Date: 08/17/2024 1:34 PM Exam Room: [facility] Patient Status: O/P Study Site: [facility] Primary Location: [facility] EStudy Info Technical Quality: Fair Exam [...] Provider: Can Woo Attending Physician: Can Woo Carpet Installer Helper: Kayley Koo RDCS Left Ventricle The left [...] Name Value Normal CHADD G peak SL(Avg) ([facility]) -16.7 % Report Signatures Finalized by Alfredo Reyes on 08/18/2024 08:49 AM Can Woo MD ECHO CUPID * EKG 12-LEAD (08/17/2024 12:32 PM [employer]) Ventricular Rate 73 BPM [facility] Atrial Rate 73 BPM [facility] P-R Interval 176 ms [facility] QRS Duration ms 94 ms [facility] Q-T Interval ms 392 ms H MUSE QTC Calculation (Bezet) 431 ms [facility] MUSE Calculated P [place] 46 degrees [facility] Calculated R [place] 47 degrees [facility] Calculated T [place] 29 degrees [facility] Interpretation EKG NORMAL SINUS RHYTHM NORMAL ECG Confirmed by KEN KOO MD ([id number]) on 08/17/2024 5:44:27 PM [facility] MUSE 08/17/2024 12:3 2 PM [employer] 08/17/2024 5:44 PM [employer] Can Woo MD ECG ORDERABLES [facility] MUSE * (ABNORMAL) CBC W/O DIFFERENTIAL (08/17/2024 5:13 AM [employer]) Pathologist [facility] WBC 5.8 4.0 - 10.7 x10E9/L 08/17/2024 5:51 AM [facility] RBC Count 3.53(L) 4.30 - 5.80 x10E12/L 08/17/2024 5:51 AM [facility] Hemoglobin 12.0(L) 13.3 - 17.5 g/dL 08/17/2024 5:51 AM [facility] Hematocrit 35.3(L) 38.7 - 51.1 % 08/17/2024 5:51 AM [facility] MCV 100.0(H) 80.0 - 98.0 fL 08/17/2024 5:51 AM [facility] MCH 34.0(H) 26.7 - 33.6 pg 08/17/2024 5:51 AM [facility] MCHC 34.0 31.7 - 36.3 g/dL 08/17/2024 5:51 AM [facility] RDW-CV 12.5 11.3 - 14.8 % 08/17/2024 5:51 AM [facility] Platelet Count 118(L) 150 - 420 x10E9/L 08/17/2024 5:51 AM [facility] MPV 10.6 7.8 - 11.4 fL 08/17/2024 5:51 AM [facility] Blood BLOOD SPECIMEN / Unknown Line Draw / Unknown 08/17/2024 5:13 AM [employer] 08/17/2024 5:22 AM [employer] Can Woo MD LAB - HEMATOLOGY ORD ERABLES [facility] [address] [place] [phone], [facility] [phone] * (ABNORMAL) BASIC METABOLIC PANEL (CALCIUM TOTAL) (08/17/2024 5:13 AM [employer]) Only the most recent of3 resultswithin the time period is included. BUN 36(H) 7 - 26 mg/dL 08/17/2024 5:50 AM [facility] Creatinine 1.50(H) 0.71 - 1.16 mg/dL 08/17/2024 5:50 AM [facility] Sodium 142 136 - 145 mmol/L 08/17/2024 5:50 AM [facility] Potassium 4.3 3.5 - 4.5 mmol/L 08/17/2024 5:50 AM [facility] Chloride 111(H) 98 - 107 mmol/L 08/17/2024 5:50 AM [facility] CO2 24 22 - 29 mmol/L 08/17/2024 5:50 AM [facility] Glucose 103(H) 70 - 99 mg/dL 08/17/2024 5:50 AM [facility] Calcium 7.8(L) 8.4 - 10.2 mg/dL 08/17/2024 5:50 AM [facility] Anion Gap 7 6 - 16 08/17/2024 5:50 AM [facility] BUN/Creatinine Ratio 24(H) 7 - 23 08/17/2024 5:50 AM [facility] Osmolality Calculated 303(H) 275 - 295 mOsm/kg 08/17/2024 5:50 AM [facility] eGFR by CKD-EPI 51(L) >=90 mL/min/1.7 3 m2 08/17/2024 5:50 AM [facility] Blood BLOOD SPECIMEN / Unknown Line Draw / Unknown 08/17/2024 5:13 AM [employer] 08/17/2024 5:21 AM [employer] Can Woo MD LAB - CHEMISTRY ORDE RABLES Performing Organization Address City/[facility]/ZIP Co de Phone Number [place] [id number] [place] [address], [place] [phone] * SYPHILIS ANTIBODY CASCADING REFLEX (08/17/2024 4:07 AM [employer]) Treponema pallidum Antibody Non-react bassem Non-react bassem 08/17/2024 5:09 AM [facility] Comment: No Laboratory evidence of syphilis infection. ?? Note: ??Circulating antibodies may be low or undetectable in early infection. ??If recent exposure is suspected, re-draw sample in 2-4 weeks and repeat testing. Blood BLOOD SPECIMEN / Unknown Line Draw / Unknown 08/17/2024 4:07 AM [employer] 08/17/2024 4:13 AM [employer] Can Woo MD LAB - SEROLOGY ORDER [facility] [address] [place] [address], [place] [phone] * HEMOGLOBIN A1C (08/17/2024 4:07 AM [employer]) Hemoglobin A1c 5.1 <=5.6 % 08/17/2024 9:15 AM [facility] Estimated Average Glucose 100 mg/dL 08/17/2024 9:15 AM [facility] Comment: HbA1c Interpretation: Normal : < 5.7% Pre-diabetes: 5.7-6.4% Diabetes: Equal to or greater than 6.5% Test results diagnostic of diabetes should be repeated for confirmation. Treatment target values recommended by ADA and other clinical organizations should be used to evaluate metabolic control in patients. Reference: [place] [employer], Standards of Care in Diabetes -2020 In patients 70 years and older consider HbA1c target range of 7.0-7.5% (Reference: Blu Pineda et al. JAMDA. 2012) The [employer] assay for the measurement of HbA1c is a National Glycohemoglobin Standardization Program (NGSP) certified method. Blood BLOOD SPECIMEN / Unknown Line Draw / Unknown 08/17/2024 4:07 AM [employer] 08/17/2024 4:20 AM [employer] Can Woo MD LAB - CHEMISTRY [place] BOO Performing Organization Address City/[facility]/ZIP Co de Phone Number [address] [address], [facility] [phone] * (ABNORMAL) CK BLOOD (08/17/2024 4:07 AM [employer]) Only the most recent of2 resultswithin the time period is included. CK Total 1,786(H) 30 - 200 U/L 08/17/2024 4:56 AM [employer] [facility] Blood BLOOD SPECIMEN / Unknown Line Draw / Unknown 08/17/2024 4:07 AM [employer] 08/17/2024 4:23 AM [employer] Can Woo MD LAB - CHEMISTRY BINDU BOO Performing Organization Address City/[facility]/ZIP Co de Phone Number [address] [address], [place] [phone] * (ABNORMAL) VITAMIN B12 (08/17/2024 4:07 AM [employer]) Vitamin B12 182(L) 213 - 816 pg/mL 08/17/2024 5:15 AM [employer] [facility] Blood BLOOD SPECIMEN / Unknown Line Draw / Unknown 08/17/2024 4:07 AM [employer] 08/17/2024 4:23 AM [employer] Can Woo MD LAB - CHEMISTRY BINDU BOO [address] [address], [facility] [phone] * (ABNORMAL) TSH (08/17/2024 4:07 AM [employer]) [facility] TSH 0.112(L) 0.350 - 4.940 uIU/mL 08/17/2024 5:15 AM [employer] [facility] Blood BLOOD SPECIMEN / Unknown Line Draw / Unknown 08/17/2024 4:07 AM [employer] 08/17/2024 4:23 AM [employer] Can Woo MD LAB - CHEMISTRY BINDU BOO Performing Organization Address City/[facility]/ZIP Co de Phone Number [address] [address], [facility] [phone] * GLUCOSE - POINT OF CARE (08/17/2024 4:05 AM [employer]) Only the most recent of3 resultswithin the time period is included. [facility] Glucose WB/POC 85 70 - 99 mg/dL 08/17/2024 4:10 AM [employer] [facility] Specimen Type Venous 08/17/2024 4:10 AM [facility] Blood BLOOD SPECIMEN / Unknown 08/17/2024 4:05 AM [employer] 08/17/2024 4:10 AM [employer] Can Woo MD LAB - POINT OF CARE ORDERABLES [address] [address], [facility] [phone] * (ABNORMAL) DRUG SCREEN EXPANDED TOXICOLOGY URINE PANEL (08/16/2024 10:01 PM [employer]) [facility] Expanded Drug Screen, Urine Positive(A) Negative 08/17/2024 12:20 PM [employer] [facility] Findings Acetaminophen Caffeine Codeine Codeine glucuronide Cotinine Cyclobenzaprine Diphenhydramine Duloxetine Gabapentin Hydromorphone glucuronide Lisinopril meta-Chloropheny lpiperazine(mCPP ) Morphine Nicotine Trazodone 08/17/2024 12:20 PM [employer] [facility] Urine URINE / Unknown Collection / Unknown 08/16/2024 10:01 PM [employer] 08/16/2024 10:20 PM [employer] Narrative [facility] - 08/17/2024 12:20 PM [employer] Testing performed by Liquid Chromatography-Quadrupole Time Flight Mass Spectrometry. While mass spectrometry is highly sensitive and specific, false-positive and false-negative findings may occur in rare circumstances. If consultation is needed, please contact the Clinical Pathology Resident congressional representative at [phone] (M-F, 8 am ? 5 pm) or [phone] after hours. This test does not include THC or barbiturates. This testing was developed by the [facility] Toxicology Laboratory in keeping with CLIA requirements. The test has not been cleared or approved by the U.S. Food and Drug Administration. Can Woo MD LAB - URINE CHEMISTR Y ORDERABLES Performing Organization Address City/[facility]/ZIP Co de Phone Number [facility] [address] [place] [address], [facility] [phone] * CULTURE URINE (08/16/2024 7:46 PM [employer]) Pathologist [facility] Culture Urine No growth (<100 CFU/mL) ARLEN 08/18/2024 12:06 AM [employer] [facility] MICROBIOLOGY Urine URINE SPECIMEN OBTAINED BY CLEAN CATCH PROCEDURE / Unknown Collection / Unknown 08/16/2024 7:46 PM [employer] 08/16/2024 7:53 PM [employer] Can Woo MD LAB - MICROBIOLOGY O RDERABLES Performing Organization Address City/[facility]/ZIP Co de Phone Number [facility] MICROBIOLOGY [address] [place] [address], [facility] [phone] * (ABNORMAL) BLOOD GASES ART + COOX PANEL (08/16/2024 7:01 PM [employer]) pH Arterial 7.29(L) 7.35 - 7.45 pH 08/16/2024 7:11 PM [facility] pO2 Arterial 61(L) 80 - 100 mmHg 08/16/2024 7:11 PM [facility] pCO2 Arterial 42 35 - 45 mmHg 7:11 PM [facility] HCO3 Arterial 20.2 20.0 - 30.0 mmol/L 08/16/2024 7:11 PM [facility] BE Arterial -6.1(L) -2.0 - 2.0 mmol/L 08/16/2024 7:11 PM [facility] Oxyhemoglobin Arterial 90.1 % 08/16/2024 7:11 PM [facility] Dexoyhemoglobin (HHB) % 7.0 % 08/16/2024 7:11 PM [facility] Methemoglobin <0.8 0.0 - 2.0 % 08/16/2024 7:11 PM [facility] Carboxyhemoglobin 2.6(H) 0.0 - 2.0 % 2023 7:11 PM [facility] O2 Content Arterial 16.8 Interpret within clinical context ml/dL 08/16/2024 7:11 PM [facility] Hemoglobin by COOX 13.3 12.0 - 17.6 g/dL 08/16/2024 7:11 PM [facility] O2 Saturation Arterial 93 90 - 100 % 08/16/2024 7:11 PM [facility] FI O2 Arterial 21.0 % 08/16/2024 7:11 PM [facility] Blood, arterial ARTERIAL BLOOD SPECIMEN / Unknown Arterial Puncture / Unknown 08/16/2024 7:01 PM [employer] 08/16/2024 7:09 PM [facility] - 08/16/2024 7:11 PM [facility] Carboxyhemoglobin Normal Concentration: Non-smokers: 0-2%; Smokers: 0-9%; Toxic: >20% Can Woo MD LAB - BLOOD GASES OR DERABLES [facility] [address] [place] [address], [facility] [phone] * LACTIC ACID BLOOD REFLEX TO REPEAT (08/16/2024 3:18 PM [employer]) Lactic Acid-Stat 1.7 <=2.0 mmol/L 08/16/2024 3:51 PM [facility] Blood BLOOD SPECIMEN / Unknown Venipuncture / Unknown 08/16/2024 3:18 PM [employer] 08/16/2024 3:26 PM [employer] Can Woo MD LAB - CHEMISTRY ORDE RAJEEV [address] [address], [facility] [phone] * (ABNORMAL) URINE MICROSCOPIC ONLY REFLEX TO CULTURE (08/16/2024 9:23 AM [employer]) Reflex Status Culture not indicated 08/16/2024 10:57 AM [facility] RBC UA 6-10(A) None Seen, 0-2, 3-5 /HPF 08/16/2024 10:57 AM [facility] WBC UA 0-5 None Seen, 0-5 /HPF 08/16/2024 10:57 AM [facility] Bacteria UA 1+(A) None /HPF 08/16/2024 10:57 AM [facility] Squamous Epithelial Cells UA 6-10(A) None Seen, 0-2, 3-5 /HPF 08/16/2024 10:57 AM [facility] Mucus UA 2+ /LPF 08/16/2024 10:57 AM [facility] Hyaline Casts UA 3-5(A) None Seen, 0-2 /LPF 08/16/2024 10:57 AM [facility] Urine URINE SPECIMEN OBTAINED BY CLEAN CATCH PROCEDURE / Unknown Collection / Unknown 08/16/2024 9:23 AM [employer] 08/16/2024 9:44 AM [employer] Cresencio Gonzalez MD LAB - URINALYSIS O RDERABLES Performing Organization Address City/[facility]/ZIP Co de Phone Number [address] [address], [facility] [phone] * (ABNORMAL) URINALYSIS REFLEX MICROSCOPIC REFLEX CULTURE (08/16/2024 9:23 AM [employer]) Color UA Rosario(A) Straw, Yellow 08/16/2024 9:53 AM [facility] Clarity UA Slt Cloudy(A) Clear 08/16/2024 9:53 AM [facility] Specific [place] UA 1.041(H) 1.005 - 1.030 08/16/2024 9:53 AM [facility] pH UA 5.0 5.0 - 8.0 pH 08/16/2024 9:53 AM [facility] Protein UA 1+(A) Negative 08/16/2024 9:53 AM [facility] Glucose UA Negative Negative 08/16/2024 9:53 AM [facility] Ketone UA Negative Negative 08/16/2024 9:53 AM [facility] Bilirubin UA Negative Negative 08/16/2024 9:53 AM [facility] Blood UA 3+(A) Negative 08/16/2024 9:53 AM [facility] Nitrite UA Negative Negative 08/16/2024 9:53 AM [facility] Leukocyte Esterase Negative Negative 08/16/2024 9:53 AM [facility] Urobilinogen UA 2.0(A) Negative mg/dL 08/16/2024 9:53 AM [facility] Urine URINE SPECIMEN OBTAINED BY CLEAN CATCH PROCEDURE / Unknown Collection / Unknown 08/16/2024 9:23 AM [employer] 08/16/2024 9:44 AM [facility] - 08/16/2024 9:53 AM [employer] Cresencio Gonzalez MD LAB - URINALYSIS O RDERABLES [facility] [address] [place] [address], [facility] [phone] * UREA NITROGEN URINE RANDOM (08/16/2024 9:23 AM [employer]) Urea Nitrogen Random Urine 310 Not Established mg/dL 08/16/2024 10:08 AM [facility] Urine URINE SPECIMEN OBTAINED BY CLEAN CATCH PROCEDURE / Unknown Collection / Unknown 08/16/2024 9:23 AM [employer] 08/16/2024 9:44 AM [facility] Francesco Malik MD LAB - URINE LOAN EXPEDITOR RY ORDERABLES [facility] [address] [place] [address], [facility] [phone] * (ABNORMAL) URINE DRUG SCREEN IMMUNOASSAY (08/16/2024 9:23 AM [facility]) [facility] Amphetamines Screen Urine Negative Negative : < 1000 ng/mL 08/16/2024 10:07 AM [facility] Barbiturates Screen Urine Negative Negative : < 200 ng/mL 08/16/2024 10:07 AM [facility] Benzodiazepine Screen Urine Negative Negative : < 200 ng/mL 08/16/2024 10:07 AM [facility] Opiates Urine Positive(A) Negative : < 300 ng/mL 08/16/2024 10:07 AM [facility] Comment:Positive urine opiat e screening results should be confirmed by another generally accepted non-immunological method such as gas chromatography or mass spectrometry. Cocaine Metabolites Urine Negative Negative : < 300 ng/mL 08/16/2024 10:07 AM [facility] Phencyclidine Screen Urine Negative Negative : < 25 ng/ml 08/16/2024 10:07 AM [facility] Cannabinoids Screen Urine Negative Negative : <50 ng/mL 08/16/2024 10:07 AM [facility] Methadone Screen Urine Negative Negative : < 300 ng/mL 08/16/2024 10:07 AM [facility] Fentanyl Screen Urine Positive(A) Negative : <1.5 ng/mL 08/16/2024 10:07 AM [facility] Comment:Positive urine fenta nyl screening results should be confirmed by another generally accepted non-immunological method such as gas chromatography or mass spectrometry. Urine URINE / Unknown Collection / Unknown 08/16/2024 9:23 AM [employer] 08/16/2024 9:44 AM [facility] - 08/16/2024 10:07 AM [employer] The Urine Toxicology Screening Panel does not screen for Propoxyphene, Meprobamate, Carisoprodol, Trazodone, ifgd-lcm-otlitbn medications and/or volatiles (Acetone, Isopropanol, Methanol or Ethylene Glycol). Ethanol, Salicylate, Acetaminophen, Tricyclic Antidepressants and several therapeutic drugs may be individually assayed in serum or plasma specimen. Toxicology testing by the [facility] is an aid to medical diagnosis and treatment of patients. No documented chain of custody was maintained. Results are intended to be used for clinical purposes only. ? Cresencio Gonzalez MD LAB - URINE CHEMIS TRY ORDERABLES Performing Organization Address [facility] Co de Phone Number [address] [address], [place] [phone] * CREATININE URINE RANDOM (08/16/2024 9:23 AM [employer]) Creatinine Urine 113.55 Not Established mg/dL 08/16/2024 10:08 AM [employer] [facility] Urine URINE SPECIMEN OBTAINED BY CLEAN CATCH PROCEDURE / Unknown Collection / Unknown 08/16/2024 9:23 AM [employer] 08/16/2024 9:44 AM [employer] Francesco Malik MD LAB - URINE LOAN EXPEDITOR RY ORDERABLES Performing Organization Address [facility] Co de Phone Number [address] [address], [place] [phone] * LYTES (NA K) URINE RANDOM PANEL (08/16/2024 9:23 AM [employer]) Sodium Urine 60 Not Established mmol/L 08/16/2024 10:08 AM [employer] [facility] Potassium Urine 22.6 Not Established mmol/L 08/16/2024 10:08 AM [employer] [facility] Urine URINE SPECIMEN OBTAINED BY CLEAN CATCH PROCEDURE / Unknown Collection / Unknown 08/16/2024 9:23 AM [employer] 08/16/2024 9:44 AM [employer] Francesco Malik MD LAB - URINE LOAN EXPEDITOR RY ORDERABLES Performing Organization Address City/[facility]/ZIP Co de Phone Number [address] [address], [facility] [phone] * (ABNORMAL) TRICYCLICS SCREEN BLOOD (08/16/2024 8:52 AM [employer]) Tricyclic Antidepressants 248(H) 80 - 200 ng/mL 08/16/2024 9:39 AM [facility] Blood BLOOD SPECIMEN / Unknown Venipuncture / Unknown 08/16/2024 8:52 AM [employer] 08/16/2024 9:03 AM [employer] Narrative [facility] - 08/16/2024 9:39 AM [employer] Many drugs significantly cross-react with this assay, [...] Gonzalez MD LAB - CHEMISTRY OR DERABLES [address] [address], [facility] [phone] * (ABNORMAL) HEPATIC FUNCTION PANEL (08/16/2024 8:52 AM [employer]) Protein Total 5.7(L) 6.0 - 8.3 g/dL 9:36 AM [facility] Albumin 2.7(L) 3.4 - 5.0 g/dL 08/16/2024 9:36 AM [facility] Bilirubin Total 0.4 0.2 - 1.2 mg/dL 08/02 9:36 AM [facility] Bilirubin Conjugated 0.3 0.1 - 0.5 mg/dL 08/16/2024 9:36 AM [facility] Bilirubin Unconjugated 0.1 Unconjugated Bilirubin is a calculated value: Reference ranges have not been established. mg/dL 08/16/2024 9:36 AM [facility] Alkaline Phosphatase 64 40 - 150 U/L 08/16/2024 9:36 AM [facility] ALT 41 5 - 55 U/L 08/16/2024 9:36 AM [facility] AST 78(H) 5 - 34 U/L 08/16/2024 9:36 AM [facility] Albumin/Globulin Ratio 0.9(L) 1.1 - 2.3 08/16/2024 9:36 AM [facility] Blood BLOOD SPECIMEN / Unknown Venipuncture / Unknown 08/16/2024 8:52 AM [employer] 08/16/2024 9:12 AM [facility] Francesco Malik MD LAB - CHEMISTRY ORD ERABLES [facility] [address] [place] [address], [facility] [phone] * (ABNORMAL) SALICYLATE LEVEL BLOOD (08/16/2024 8:52 AM [employer]) Salicylate <5(L) 15 - 30 mg/dL 08/16/2024 9:36 AM [facility] Blood BLOOD SPECIMEN / Unknown Venipuncture / Unknown 08/16/2024 8:52 AM [employer] 08/16/2024 9:12 AM [employer] [facility] - 08/16/2024 9:36 AM [employer] This test is not intended for use with low-dose aspirin therapy. Most patients on low-dose aspirin for cardiovascular prophylaxis will have serum concentrations near or below the lower limit of the analytical range. Cresencio Gonzalez MD LAB - CHEMISTRY OR DERABLES Performing Organization Address [facility] Co de Phone Number [address] [address], [facility] [phone] * ACETAMINOPHEN LEVEL (08/16/2024 8:52 AM [employer]) [facility] Acetaminophen <3.0 <3.0 ug/mL 08/16/2024 9:36 AM [facility] Blood BLOOD SPECIMEN / Unknown Venipuncture / Unknown 08/16/2024 8:52 AM [employer] 08/16/2024 9:12 AM [employer] [facility] - 08/16/2024 9:36 AM [facility] Acetaminophen Toxicity Levels (Hours Post Ingestion): [...] may alter the peak level. Contact the [facility] at or reserved for healthcare professionals to assist you in evaluating potentially toxic acetaminophen levels. Cresencio Gonzalez MD LAB - CHEMISTRY OR DERABLES Performing Organization Address [facility]/ZIP Co de Phone Number [address] [address], [facility] [phone] * XR PELVIS 1 OR 2VW (08/16/2024 7:20 AM [employer]) Anatomical Region Laterality Modality Pelvis Digital Radiogra phy 08/16/2024 7:22 AM [employer] Impressions 08/16/2024 3:31 PM [employer] IMPRESSION: No acute displaced fracture or dislocation of pelvis is identified. Report dictated by Rafi Vicente MD (residential mortgage underwriter). Mason Brizuela have personally reviewed and interpreted this examination/study. > Interpreting Provider: Mason Lucero on 08/16/2024 3:31 PM Narrative 08/16/2024 3:31 PM [employer] EXAMINATION: XR PELVIS 1 OR 2VW DATE/TIME OF EXAM: ??08/16/2024 7:22 AM, LOCATION ??[facility] HISTORY: Trauma Fracture suspected COMPARISON: No prior [...] EXAM: 08/16/2024 7:22 AM, LOCATION [facility] HISTORY: Trauma Fracture suspected COMPARISON: No prior [...] Report dictated by Rafi Vicente MD (residential mortgage underwriter). I, Mason Mohandas have personally reviewed and interpreted this examination/study. > Interpreting Provider: Mason Lucero on 08/16/2024 3:31 PM Cresencio Gonzalez MD DIAGNOSTIC IMAGING ORDERABLES * CT CHEST ABDOMEN PELVIS W CONT - Abdomen-pelvis trauma, blunt or penetrating (08/16/2024 6:58 AM [employer]) Anatomical Region Laterality Modality Chest, Abdomen, Pelvis Computed Tomography 08/16/2024 8:11 AM [employer] Impressions 08/16/2024 5:01 PM [employer] Impression 1. No acute visceral, vascular, or [...] reflux/esophagitis. Report dictated by Bryon Watson MD(residential mortgage underwriter). I, Viviana Rain MD have personally reviewed and interpreted this examination/study. > Interpreting Provider: Viviana Rain MD on 08/16/2024 5:01 PM Narrative 08/16/2024 5:01 PM [employer] PROCEDURE: ??CT CHEST ABDOMEN PELVIS W CONT, DATE/TIME OF EXAM: ??08/16/2024 7:20 AM, LOCATION ??[facility] INDICATION: Trauma COMPARISON: None. EXAMINATION: Computed tomography [...] OF EXAM:08/16/2024 7:20 AM, LOCATION [facility] INDICATION: Trauma COMPARISON: None. EXAMINATION: Computed tomography [...] reflux/esophagitis. Report dictated by Bryon Watson MD(residential mortgage underwriter). Viviana Brizuela MD have personally reviewed and interpreted this examination/study. > Interpreting Provider: Viviana Rain MD on 08/16/2024 5:01 PM Cresencio Gonzalez MD CT ORDERABLES * CT Angio Lower Extremity Right (08/16/2024 6:58 AM [employer]) Anatomical Region Laterality Modality Lower Extremity Computed Tomogra phy 08/16/2024 7:57 AM [employer] Impressions 08/16/2024 5:06 PM [employer] IMPRESSION: Three-vessel runoff of bilateral lower extremity arteries to the level of ankle. Of note, the dorsalis pedis and tibialis posterior arteries are diminutive bilaterally likely secondary to diffuse spasm but patent without evidence of contrast extravasation to suggest arterial injury or active bleeding. > Dictated by Felix Awad MD (residential mortgage underwriter). Viviana Brizuela MD have personally reviewed and interpreted this examination/study. > Interpreting Provider: Viviana Rain MD on 08/16/2024 5:06 PM Narrative 08/16/2024 5:06 PM [employer] PROCEDURE: ??CT ANGIO LOWER EXTREMITY RIGHT, CT ANGIO LOWER EXTREMITY LEFT, DATE/TIME OF EXAM: ??08/16/2024 7:20 AM, LOCATION ??[facility] INDICATION: W10.8XXA: Fall (on) (from) other stairs [...] EXAM: 08/16/2024 7:20 AM, LOCATION [facility] INDICATION: W10.8XXA: Fall (on) (from) other stairs [...] the technologist and sent to the workstation forSoftricityview. FINDINGS: Right common iliac artery: The imaged [...] > Dictated by Felix Awad MD (residential mortgage underwriter). Viviana Brizuela MD have personally reviewed and interpreted this examination/study. > Interpreting Provider: Viviana Rain MD on 08/16/2024 5:06 PM Chet Henning MD CT ORDERABLES * CT Angio Lower Extremity Left (08/16/2024 6:58 AM [employer]) Anatomical Region Laterality Modality Lower Extremity Computed Tomogra phy 08/16/2024 7:57 AM [employer] Impressions 08/16/2024 5:06 PM [employer] IMPRESSION: Three-vessel runoff of bilateral lower extremity arteries to the level of ankle. Of note, the dorsalis pedis and tibialis posterior arteries are diminutive bilaterally likely secondary to diffuse spasm but patent without evidence of contrast extravasation to suggest arterial injury or active bleeding. > Dictated by Felix Awad MD (residential mortgage underwriter). Viviana Brizuela MD have personally reviewed and interpreted this examination/study. > Interpreting Provider: Viviana Rain MD on 08/16/2024 5:06 PM Narrative 08/16/2024 5:06 PM [employer] PROCEDURE: ??CT ANGIO LOWER EXTREMITY RIGHT, CT ANGIO LOWER EXTREMITY LEFT, DATE/TIME OF EXAM: ??08/16/2024 7:20 AM, LOCATION ??[facility] INDICATION: W10.8XXA: Fall (on) (from) other stairs [...] EXAM: 08/16/2024 7:20 AM, LOCATION [facility] INDICATION: W10.8XXA: Fall (on) (from) other stairs [...] > Dictated by Felix Awad MD (residential mortgage underwriter). I, Viviana Rain MD have personally reviewed and interpreted this examination/study. > Interpreting Provider: Viviana Rain MD on 08/16/2024 5:06 PM Chet Henning MD CT ORDERABLES * CT LUMBAR SPINE WO CONTRAST - T/L-spine trauma, Spine fracture (08/16/2024 6:58 AM [employer]) Anatomical Region Laterality Modality Spine Computed Tomogra phy 08/16/2024 6:28 AM [employer] Impressions 08/16/2024 10:30 AM [employer] IMPRESSION: 1.No acute intracranial hemorrhage, midline shift, [...] Report dictated by Rafi Vicente MD (residential mortgage underwriter). I, Ruby Villanueva MD have personally reviewed and interpreted this examination/study. > Interpreting Provider: Ruby Villanueva MD on 08/16/2024 10:30 AM Narrative 08/16/2024 10:30 AM [employer] PROCEDURE: ??CT HEAD WO CONTRAST, CT LUMBAR SPINE WO CONTRAST, CT THORACIC SPINE WO CONTRAST, CT CERVICAL SPINE WO CONTRAST, DATE/TIME OF EXAM: 08/16/2024 7:20 AM, LOCATION ??[facility] INDICATION: Trauma EXAMINATION: 1.Computed tomography (CT) of [...] EXAM: 08/16/2024 7:20 AM, LOCATION [facility] INDICATION: Trauma EXAMINATION: 1.Computed tomography (CT) of [...] Report dictated by Rafi Vicente MD (residential mortgage underwriter). I, Ruby Villanueva MD have personally reviewed and interpretedthis examination/study. > Interpreting Provider: Ruby Villanueva MD on 08/16/2024 10:30AM Cresencio Gonzalez MD CT ORDERABLES * CT THORACIC SPINE WO CONTRAST - T/L-spine trauma, spine fracture (08/16/2024 6:58 AM [employer]) Anatomical Region Laterality Modality Spine Computed Tomogra phy 08/16/2024 6:28 AM [employer] Impressions 08/16/2024 10:30 AM [employer] IMPRESSION: 1.No acute intracranial hemorrhage, midline shift, [...] Report dictated by Rafi Vicente MD (residential mortgage underwriter). I, Ruby Villanueva MD have personally reviewed and interpreted this examination/study. > Interpreting Provider: Ruby Villanueva MD on 08/16/2024 10:30 AM Narrative 08/16/2024 10:30 AM [employer] PROCEDURE: ??CT HEAD WO CONTRAST, CT LUMBAR SPINE WO CONTRAST, CT THORACIC SPINE WO CONTRAST, CT CERVICAL SPINE WO CONTRAST, DATE/TIME OF EXAM: 08/16/2024 7:20 AM, LOCATION ??[facility] INDICATION: Trauma EXAMINATION: 1.Computed tomography (CT) of [...] EXAM: 08/16/2024 7:20 AM, LOCATION [facility] INDICATION: Trauma EXAMINATION: 1.Computed tomography (CT) of [...] Report dictated by Rafi Vicente MD (residential mortgage underwriter). Ruby Brizuela MD have personally reviewed and interpretedthis examination/study. > Interpreting Provider: Ruby Villanueva MD on 08/16/2024 10:30AM Cresencio Gonzalez MD CT ORDERABLES * CT CERVICAL SPINE WO CONTRAST - C-Spine Trauma, Spine fracture (08/16/2024 6:58 AM DELTA SYSTEM FREIGHT CAR CLEANER) Anatomical Region Laterality Modality Spine Computed Tomogra phy 08/16/2024 6:28 AM DELTA SYSTEM FREIGHT CAR CLEANER Impressions 08/16/2024 10:30 AM DELTA SYSTEM FREIGHT CAR CLEANER IMPRESSION: 1.No acute intracranial hemorrhage, midline shift, [...] Report dictated by Rafi Vicente MD (residential mortgage underwriter). Ruby Brizuela MD have personally reviewed and interpreted this examination/study. > Interpreting Provider: Ruby Villanueva MD on 08/16/2024 10:30 AM Narrative 08/16/2024 10:30 AM DELTA SYSTEM FREIGHT CAR CLEANER PROCEDURE: ??CT HEAD WO CONTRAST, CT LUMBAR SPINE WO CONTRAST, CT THORACIC SPINE WO CONTRAST, CT CERVICAL SPINE WO CONTRAST, DATE/TIME OF EXAM: 08/16/2024 7:20 AM, LOCATION ??[facility] INDICATION: Trauma EXAMINATION: 1.Computed tomography (CT) of [...] EXAM: 08/16/2024 7:20 AM, LOCATION [facility] INDICATION: Trauma EXAMINATION: 1.Computed tomography (CT) of [...] Report dictated by Rafi Vicente MD (residential mortgage underwriter). I, Ruby Villanueva MD have personally reviewed and interpretedthis examination/study. > Interpreting Provider: Ruby Villanueva MD on 08/16/2024 10:30AM Cresencio Gonzalez MD CT ORDERABLES * CT HEAD WO CONTRAST - Head Trauma, CSF leak, mental status changes (08/16/2024 6:58 AM DELTA SYSTEM FREIGHT CAR CLEANER) Anatomical Region Laterality Modality Head Computed Tomogra phy 08/16/2024 6:28 AM DELTA SYSTEM FREIGHT CAR CLEANER Impressions 08/16/2024 10:30 AM DELTA SYSTEM FREIGHT CAR CLEANER IMPRESSION: 1.No acute intracranial hemorrhage, midline shift, [...] Report dictated by Rafi Vicente MD (residential mortgage underwriter). I, Ruby Villanueva MD have personally reviewed and interpreted this examination/study. > Interpreting Provider: Ruby Villanueva MD on 08/16/2024 10:30 AM Narrative 08/16/2024 10:30 AM DELTA SYSTEM FREIGHT CAR CLEANER PROCEDURE: ??CT HEAD WO CONTRAST, CT LUMBAR SPINE WO CONTRAST, CT THORACIC SPINE WO CONTRAST, CT CERVICAL SPINE WO CONTRAST, DATE/TIME OF EXAM: 08/16/2024 7:20 AM, LOCATION ??[facility] INDICATION: Trauma EXAMINATION: 1.Computed tomography (CT) of [...] EXAM: 08/16/2024 7:20 AM, LOCATION [facility] INDICATION: Trauma EXAMINATION: 1.Computed tomography (CT) of [...] Report dictated by Rafi Vicente MD (residential mortgage underwriter). I, Ruby Villanueva MD have personally reviewed and interpretedthis examination/study. > Interpreting Provider: Ruby Villanueva MD on 08/16/2024 10:30AM Cresencio Gonzalez MD CT ORDERABLES * XR CHEST 1VW PORTABLE (08/16/2024 6:11 AM DELTA SYSTEM FREIGHT CAR CLEANER) Anatomical Region Laterality Modality Chest Digital Radiogra phy 08/16/2024 6:04 AM DELTA SYSTEM F[employer]IGHT CAR CLEANER Narrative 08/16/2024 2:29 PM DELTA SYSTEM FREIGHT CAR CLEANER PROCEDURE: ??XR CHEST 1VW PORTABLE, DATE/TIME OF EXAM: ??08/16/2024 5:44 AM, LOCATION ??[facility] INDICATION: Trauma ADDITIONAL CLINICAL INFORMATION: Ordering Provider [...] Report dictated by Rafi Vicente MD (residential mortgage underwriter). Mason Brizuela have personally reviewed and interpreted this examination/study. > Interpreting Provider: Mason Lucero on 08/16/2024 2:29 PM Procedure Note Mason Lucero MD - 08/16/2024 PROCEDURE: XR CHEST 1VW PORTABLE, DATE/TIME OF EXAM: 08/16/2024 5:44AM, LOCATION [facility] INDICATION: Trauma ADDITIONAL CLINICAL INFORMATION: Ordering Provider [...] Report dictated by Rafi Vicente MD (residential mortgage underwriter). Mason Brizuela have personally reviewed and interpreted this examination/study. > Interpreting Provider: Mason Lucero on 08/16/2024 2:29 PM Cresencio Gonzalez MD DIAGNOSTIC IMAGING ORDERABLES * PTT [facility] (08/16/2024 5:50 AM DELTA SYSTEM FREIGHT CAR CLEANER) APTT 27.4 23.0 - 38.4 Seconds 08/16/2024 6:38 AM DELTA SYSTEM FREIGHT CAR CLEANER [facility] Comment:Suggested therapeuti c range for full dose I.V. unfractionated heparin therapy for venous thromboembolism is 71 to 109 seconds. Blood BLOOD SPECIMEN / Unknown Venipuncture / Unknown 08/16/2024 5:50 AM DELTA SYSTEM FREIGHT CAR CLEANER 08/16/2024 6:12 AM DELTA SYSTEM FREIGHT CAR CLEANER Cresencio Gonzalez MD LAB - COAGULATION ORDERABLES Performing Organization Address City/[facility]/ZIP Co de Phone Number [address] [address], [place] [phone] * TYPE + SCREEN PANEL (08/16/2024 5:50 AM DELTA SYSTEM FREIGHT CAR CLEANER) Antibody Screen NEG 6:49 AM DELTA SYSTEM FREIGHT CAR CLEANER [facility] BLOOD [facility] LAB ABO Rh B POS 08/16/2024 6:49 AM DELTA SYSTEM FREIGHT CAR CLEANER [facility] Blood Bank BLOOD SPECIMEN / Unknown Venipuncture / Unknown 08/16/2024 5:50 AM DELTA SYSTEM FREIGHT CAR CLEANER 08/16/2024 6:13 AM DELTA SYSTEM FREIGHT CAR CLEANER Cresencio Gonzalez MD LAB - BLOOD BANK O RDERABLES Performing Organization Address [facility] Co de Phone Number [facility] BLOOD [facility] [address] [place] [address], [place] [phone] * LIPASE BLOOD (08/16/2024 5:50 AM DELTA SYSTEM FREIGHT CAR CLEANER) Lipase 13 8 - 78 U/L 08/16/2024 6:31 AM DELTA SYSTEM FREIGHT CAR CLEANER [facility] Blood BLOOD SPECIMEN / Unknown Venipuncture / Unknown 08/16/2024 5:50 AM DELTA SYSTEM FREIGHT CAR CLEANER 08/16/2024 6:10 AM DELTA SYSTEM FREIGHT CAR CLEANER Narrative [facility] - 08/16/2024 6:31 AM DELTA SYSTEM FREIGHT CAR CLEANER Lipase results from the [employer] Alinity analyzer may not be comparable with other methodologies. Cresencio Gonzalez MD LAB - CHEMISTRY OR DERABLES Performing Organization Address City/[facility]/ZIP Co de Phone Number [address] [address], [place] [phone] * ALCOHOL ETHYL BLOOD (08/16/2024 5:50 AM [facility]) Ethanol (mg/dL) <10 <10 mg/dL 6:31 AM [facility] Ethanol Calculated (g/dL) <0.010 <=0.010 g/dL 08/16/2024 6:31 AM [facility] Blood BLOOD SPECIMEN / Unknown Venipuncture / Unknown 08/16/2024 5:50 AM DELTA SYSTEM FREIGHT CAR CLEANER 08/16/2024 6:10 AM [facility] Narrative [facility] - 08/16/2024 6:31 AM [facility] Ethanol Interp <10: None Detected. Depression of [employer]: >100 mg/dl Potentially Critical: >250 mg/dl Potentially [...] Gonzalez MD LAB - CHEMISTRY OR DERABLES [facility] [address] [place] [address], [facility] [phone] from Last 3 Months Advance Directives * Full Code (Latest Code Status on File) Date Activated Date Inactivated Comments 08/16/2024 6:25 PM 08/20/2024 1:32 PM Care Teams Rock Mason Apprentice Relationship Specialty Start Date End Date Mark Carmichael DO [address] [place] [id number] PCP - General Family Medicine 08/16/24
--- OUTSIDE RECORDS SUMMARY | 2024-08-20 14:25 | XMS_ITS | Encounter Summary ---
Author Organization [facility] Address [address] [place] [address]. [place] [address] [place] [address] Care Team Providers Care Forest Fire Control Officer Name Role Phone Mark Carmichael DO Primary Care Provider Encounter Details Date Type Department Care Team (Latest Contact Info) Description 10/03/2022 3:06 PM [employer] [facility] - 10/03/2022 11:59 PM [employer] [facility] Hospital Encounter [facility] [address] [place] [address] Patti Pineda MD [address] [place] [address] Discharge Disposition: Home or Self [...] Coronavirus/COVID-19? No / Unsure 10/03/2022 3:02 PM HEAD M[employer]'S GOLF COACH documented as of this encounter Functional Status * RETIRED Are you deaf or do you have serious difficulty hearing Answer Date of Assessment Author Status No 07/25/2022 11:00 PM HEAD M[employer]'S GOLF COACH Acti ve * RETIRED Are you blind or do you have serious difficulty seeing, even when wearing glasses? Answer Date of Assessment Author Status No 07/25/2022 11:00 PM HEAD MEN'S GOLF COACH Acti ve * Do you have serious [...] transitions and discharge planning Lifestyle Angela Pena, REAMING MACHINE OPERATOR documented as of this encounter Procedures Procedure Name Priority Date/Time Associated Diagnosis Comments CBC W/DIFF AUTOMATED Routine 10/03/2022 3:30 PM [employer] M[employer]S GOLF COACH Diarrhea Pneumonia documented in this encounter Results * (ABNORMAL) CBC W/DIFF AUTOMATED (10/03/2022 3:30 PM HEAD MEN'S GOLF COACH) WBC 5.87 4.00 - 10.80 x10'3/uL 10/03/2022 3:44 PM HEAD MEN'S GOLF COACH [facility] RBC 4.36(L) 4.50 - 6.10 x10'6/uL 10/03/2022 3:44 PM [facility] HGB 13.3 13.0 - 18.0 G/DL 10/03/2022 3:44 PM [facility] HCT 41.2 37.0 - 52.0 % 10/03/2022 3:44 PM [facility] MCV 94.5 78.0 - 100.0 FL 10/03/2022 3:44 PM [facility] MCH 30.5 27.0 - 31.0 PG 10/03/2022 3:44 PM [facility] MCHC 32.3(L) 33.0 - 36.0 G/DL 10/03/2022 3:44 PM [facility] RDW 12.6 11.5 - 14.5 % 10/03/2022 3:44 PM [facility] PLT 172 150 - 350 x10'3/uL 10/03/2022 3:44 PM [facility] MPV 10.6(H) 7.4 - 10.4 FL 10/03/2022 3:44 PM [facility] CBC COMMENT NORMAL REFERENCE RANGE NOT ESTABLISHED FOR THE PROPORTIONAL LEUKOCYTE DIFFERENTIAL. 10/03/2022 3:44 PM HEAD M[employer]'S GOLF [employer] [facility] NEUTROPHILS % 63.6 % 10/03/2022 3:44 PM [employer] [facility] LYMPHOCYTES % 23.9 % 10/03/2022 3:44 PM [employer] M[employer] GOL[employer] [facility] MONOCYTES % 11.1 % 10/03/2022 3:44 PM [employer] M[employer]S GOL[employer] [facility] EOSINOPHILS % 0.9 % 10/03/2022 3:44 PM HEAD MEN[employer]S GOLF CO[employer] [facility] BASOPHILS % 0.3 % 10/03/2022 3:44 PM HEAD M[employer]S GOLF CO[employer] [facility] IMMATURE GRANS % 0.2 % 10/03/19 3:44 PM HEAD M[employer]'S GOLF CO[employer] [facility] NRBC 0.0 % 10/03/2022 3:44 PM HEAD M[employer]'S GOLF CO[employer] [facility] ABS. NEUTROPHILS 3.74 1.60 - 8.30 x10'3/uL 10/03/2022 3:44 PM HEAD MEN'S GOLF COACH [facility] ABS. LYMPHOCYTES 1.40 0.80 - 4.70 x10'3/uL 10/03/2022 3:44 PM HEAD MEN'S GOLF COACH [facility] ABS. MONOCYTES 0.65 0.00 - 1.50 x10'3/uL 10/03/2022 3:44 PM HEAD MEN'S GOLF CO[employer] [facility] ABS. EOSINOPHILS 0.05 0.00 - 0.40 x10'3/uL 10/03/2022 3:44 PM HEAD MEN'S GOLF COACH [facility] ABS. BASOPHILS 0.02 0.00 - 0.20 x10'3/uL 10/03/2022 3:44 PM HEAD MEN'S GOLF COACH [facility] ABS. IMMATURE GRANULOCYTES 0.01 0.00 - 0.03 x10'3/uL 10/03/2022 3:44 PM HEAD MEN'S GOLF CO[employer] [facility] ABS. NUCLEATED RBC'S 0.00 0.00 x10'3/uL 10/03/2022 3:44 PM HEAD M[employer]'S GOLF [employer] [facility] 10/03/2022 3:30 PM HEAD M[employer]'S GOLF COACH Patti Pineda MD LABORATORY Final Result [facility] [address] [place] [address] [phone] documented in this encounter Visit Diagnoses Diagnosis Diarrhea Pneumonia Pneumonia, organism unspecified documented in this encounter Care Teams Forest Fire Control Officer Relationship Specialty Start Date End Date Mark Carmichael DO [address] [place] [address] PCP - General FAMILY PRACTICE 07/22/22 documented as of this encounter
--- OUTSIDE RECORDS SUMMARY | 2024-08-20 14:25 | XMS_ITS | Encounter Summary ---
Author Organization [facility] Address [address] [place] [address]. [place] [address] [place] [address] Care Team Providers Care Sane Rn Name Role Phone Mark Carmichael DO Primary Care Provider [phone] Reason for Visit * Auth/Cert (Routine) Specialty Diagnoses / Procedures Referred By Amanda espinoza Referred To Contact Home Health Services Referral ID Status Reason Start Date Expiration Date Visits Re quested Visits Authorized [id number] 1 1 Encounter Details Date Type Department Care Team (Late st Contact Info) Description 08/20/2022 8:15 AM SHOWER ATTENDANT Home Care Visit [facility] Home [facility] [address] [place] [address] Conchita Cazares, RN [address] [place] [address] SN HOME VISIT Social History Tobacco Use [...] Coronavirus/COVID-19? No / Unsure 08/03/2022 2:21 AM SHOWER ATTENDANT documented as of this encounter Last Filed Vital Signs Vital Sign Reading Time Taken Comments Blood Pressure 120/62 08/20/2022 10:35 AM SHOWER ATTENDANT Pulse 118 08/20/2022 10:35 AM SHOWER ATTENDANT Temperature 36.4 ??C (97.6 ??F) 08/20/2022 10:[address] Respiratory Rate 16 08/20/2022 10:35 AM SHOWER ATTENDANT Oxygen Saturation 97% 08/20/2022 10:35 AM SHOWER ATTENDANT Inhaled Oxygen Concentration - - Weight - - Height - - Body Mass Index - - documented in this encounter Functional Status * RETIRED Are you deaf or do you have serious difficulty hearing Answer Date of Assessment Author Status No 07/25/2022 11:00 PM SHOWER ATTENDANT Acti ve * RETIRED Are you blind or do you have serious difficulty seeing, even when wearing glasses? Answer Date of Assessment Author Status No 07/25/2022 11:00 PM SHOWER ATTENDANT Acti ve * Do you have serious difficulty walking or climbing stairs? Answer Date of Assessment Author Status No 07/25/2022 11:00 PM SHOWER ATTENDANT Katie Vega ma, RN Active * Do you have difficulty dressing or bathing? Answer Date of Assessment Author Status No 07/25/2022 11:00 PM SHOWER ATTENDANT Katie Vega ma RN Active * Because of a physical, mental, or emotional condition, do you have difficulty doing errands alone such as visiting a doctor's office or shopping? 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 Results to [facility] Dr. Zoila Farias [phone] and Option Care: . Problem:Learning/Tea daniel Needs - IV Therapy Goal:Patient/caregiv er demonstrates ability to safely perform and/or administer IV flush Completed Obtained from venipuncture for cbc, cmp. Patient tolerated good. Covered with bandaid. Specimen taken to [facility] lab IV Administration Description: Skilled nurse, Patient [...] 08/13/22. results to Dr. Austen Carmichael fax: [phone] Problem:Learning/Tea daniel Needs - IV Therapy Completed [...] support systems and coping. - Refer to WILDLIFE AND GAME PROTECTOR as needed. - Notify physician as needed. [...] Completed documented in this encounter Care Teams Sane Rn Relationship Specialty Start Date End Date Mark Carmichael DO [address] [place] [address] PCP - General FAMILY PRACTICE 07/22/22 documented as of this encounter
--- OUTSIDE RECORDS SUMMARY | 2024-08-20 14:25 | XMS_ITS | Patient Health Summary ---
Author Organization [facility] Address [address] [address] Care Team Providers Care Television Specialist Name Role Phone Mark Carmichael DO Primary Care Provider [phone] Note from [facility],non-owned Affiliates and Associated Physician Practices is amultiple site organization consisting of ambulatory clinics and hospital sitesin [place], [place], [place] and [place]. This disclosure is being madepursuant to the Care Everywhere program and may not contain all information available regarding this patient. Last updated 18.[facility] Allergies * Nsaids(Unknown,GI Discomfort,Shortness of Breath) [...] and heating? Not hard at all 08/20/2024 [facility] [place] of Occupat ional Health - Occupational Stress [...] any time in the past 12 m [facility], were you homeless or living in a jail (including now)? No 08/20/2024 Sex and Gender Information Value Date Recorded Sex Assigned at Not on file Gender Identity Not on file Sexual Orientation Not on file Last Filed Vital Signs Vital Sign Reading Time Taken Comments Blood Pressure 164/85 08/20/2024 11:05 AM MULT AU MATIC OPERATOR Pulse 60 08/20/2024 11:05 AM MULT AU MATIC OPERATOR Temperature 36.8 ??C (98.3 ??F) 08/20/2024 11:[address] Respiratory Rate 20 08/20/2024 11:05 AM MULT AU MATIC OPERATOR Oxygen Saturation 97% 08/20/2024 11:05 AM MULT AU MATIC OPERATOR Inhaled Oxygen Concentration - - Weight 74.5 kg (164 lb 3.2 oz) 08/18/2024 4:00 A M MULT AU MATIC OPERATOR Height 182.9 cm (6') 08/16/2024 5:26 AM MULT AU MATIC OPERATOR Body Mass Index 22.27 08/16/2024 5:26 AM MULT AU MATIC OPERATOR Procedures * CBC W AUTO DIFFERENTIAL(Performed 08/20/2024) [...] CBC W AUTO DIFFERENTIAL (08/20/2024 5:49 AM MULT AU MATIC OPERATOR) Only the most recent of6 resultswithin the time period is included. WBC 3.6(L) 4.0 - 10.7 x10E9/L 08/20/2024 6:56 AM [facility] RBC Count 3.32(L) 4.30 - 5.80 x10E12/L 08/20/2024 6:56 AM [facility] Hemoglobin 11.3(L) 13.3 - 17.5 g/dL 08/20/2024 6:56 AM [facility] Hematocrit 32.1(L) 38.7 - 51.1 % 08/20/2024 6:56 AM [facility] MCV 96.7 80.0 - 98.0 fL 08/20/2024 6:56 AM [facility] MCH 34.0(H) 26.7 - 33.6 pg 08/20/2024 6:56 AM [facility] MCHC 35.2 31.7 - 36.3 g/dL 08/20/2024 6:56 AM [facility] RDW-CV 12.2 11.3 - 14.8 % 08/20/2024 6:56 AM [facility] Platelet Count 141(L) 150 - 420 x10E9/L 08/20/2024 6:56 AM [facility] MPV 10.0 7.8 - 11.4 fL 08/20/2024 6:56 AM [facility] Neutrophil % 57.6 41.0 - 74.0 % 08/20/2024 6:56 AM [facility] Lymphocyte % 27.2 17.0 - 47.0 % 08/20/2024 6:56 AM [facility] Monocyte % 10.8 3.0 - 11.0 % 08/20/2024 6:56 AM [facility] Eosinophil % 3.3 0.0 - 7.0 % 08/20/2024 6:56 AM [facility] Basophil % 0.3 0.0 - 1.6 % 08/20/2024 6:56 AM [facility] Immature Granulocytes % 0.8 0.0 - 1.0 % 08/20/2024 6:56 AM [facility] Neutrophil Absolute 2.07 1.60 - 7.50 x10E9/L 08/20/2024 6:56 AM [facility] Lymphocyte Absolute 0.98(L) 1.00 - 4.40 x10E9/L 08/20/2024 6:56 AM [facility] Monocyte Absolute 0.39 0.15 - 1.00 x10E9/L 08/20/2024 6:56 AM [facility] Eosinophil Absolute 0.12 0.00 - 0.60 x10E9/L 08/20/2024 6:56 AM [facility] Basophil Absolute 0.01 0.00 - 0.13 x10E9/L 08/20/2024 6:56 AM [facility] Blood BLOOD SPECIMEN / Unknown Lab Venipuncture / Unknown 08/20/2024 5:49 AM MULT AU MATIC OPERATOR 08/20/2024 6:35 AM [facility] Can Woo MD LAB - HEMATOLOGY ORD ERABLES [facility] [address] [place] [address], [facility] [phone] * (ABNORMAL) COMPREHENSIVE METABOLIC PANEL (08/20/2024 5:49 AM [facility]) Only the most recent of5 resultswithin the time period is included. BUN 13 7 - 26 mg/dL 08/20/2024 7:13 AM [facility] Creatinine 0.84 0.71 - 1.16 mg/dL 08/20/2024 7:13 AM [facility] Sodium 140 136 - 145 mmol/L 08/20/2024 7:13 AM [facility] Potassium 4.1 3.5 - 4.5 mmol/L 08/20/2024 7:13 AM [facility] Chloride 110(H) 98 - 107 mmol/L 08/20/2024 7:13 AM [facility] CO2 24 22 - 29 mmol/L 08/20/2024 7:13 AM [facility] Glucose 76 70 - 99 mg/dL 08/20/2024 7:13 AM [facility] Calcium 8.2(L) 8.4 - 10.2 mg/dL 08/20/2024 7:13 AM [facility] Protein Total 5.0(L) 6.0 - 8.3 g/dL 08/20/2024 7:13 AM [facility] Albumin 2.4(L) 3.4 - 5.0 g/dL 08/20/2024 7:13 AM [facility] Bilirubin Total 0.4 0.2 - 1.2 mg/dL 08/20/2024 7:13 AM [facility] Alkaline Phosphatase 44 40 - 150 U/L 08/20/2024 7:13 AM [facility] ALT 34 5 - 55 U/L 08/20/2024 7:13 AM [facility] AST 39(H) 5 - 34 U/L 08/20/2024 7:13 AM [facility] Anion Gap 6 6 - 16 08/20/2024 7:13 AM [facility] BUN/Creatinine Ratio 15 7 - 23 08/20/2024 7:13 AM [facility] Osmolality Calculated 289 275 - 295 mOsm/kg 08/20/2024 7:13 AM [facility] Albumin/Globulin Ratio 0.9(L) 1.1 - 2.3 08/20/2024 7:13 AM MULT AU MATIC OPERATOR [facility] eGFR by CKD-EPI >90 >=90 mL/min/1.7 3 m2 08/20/2024 7:13 AM MULT AU MATIC OPERATOR [facility] Blood BLOOD SPECIMEN / Unknown Lab Venipuncture / Unknown 08/20/2024 5:49 AM MULT AU MATIC OPERATOR 08/20/2024 6:39 AM MULT AU MATIC OPERATOR Can Woo MD LAB - CHEMISTRY BINDU BOO [facility] [address] [place] [address], [facility] [phone] * (ABNORMAL) PHOSPHORUS BLOOD (08/20/2024 5:49 AM MULT AU MATIC OPERATOR) Only the most recent of5 resultswithin the time period is included. Phosphorus 2.6(L) 2.8 - 5.1 mg/dL 08/20/2024 7:13 AM MULT AU MATIC OPERATOR [facility] Blood BLOOD SPECIMEN / Unknown Lab Venipuncture / Unknown 08/20/2024 5:49 AM MULT AU MATIC OPERATOR 08/20/2024 6:39 AM MULT AU MATIC OPERATOR Can Woo MD LAB - CHEMISTRY BINDU BOO Performing Organization Address City/[facility]/ZIP Co de Phone Number [facility] [address] [place] [address], [facility] [phone] * MAGNESIUM BLOOD (08/20/2024 5:49 AM MULT AU MATIC OPERATOR) Only the most recent of5 resultswithin the time period is included. Magnesium 1.7 1.6 - 2.6 mg/dL 08/20/2024 7:13 AM MULT AU MATIC OPERATOR [facility] Blood BLOOD SPECIMEN / Unknown Lab Venipuncture / Unknown 08/20/2024 5:49 AM MULT AU MATIC OPERATOR 08/20/2024 6:39 AM MULT AU MATIC OPERATOR Can Woo MD LAB - CHEMISTRY BINDU BOO [facility] [address] [place] [address], [facility] [phone] * Endoscopic Ultrasonography, GI (08/19/2024 11:04 AM MULT AU MATIC OPERATOR) Report Endoscopy POC Endoscopy Department Report _ [...] and ?oxygen saturations were monitored continuously. The ?[id number] was introduced through the mouth, and ?advanced [...] Procedure Code(s): ? --- Professional --- ? 76572, Esophagogastroduodenos copy, flexible, transoral; with endoscopic ? ultrasound examination limited to the esophagus, stomach or duodenum, ? and adjacent structures Diagnosis Code(s): ?--- Professional --- ?K80.20, Calculus of gallbladder without ?cholecystitis without obstruction ?K86.9, Disease of pancreas, unspecified ?K83.8, Other specified diseases of biliary tract ?R93.2, Abnormal findings on diagnostic imaging of ?liver and biliary tract CPT copyright 2022 [employer]. All rights reserved. The codes documented in this report are preliminary and upon label coder review may be revised to meet current compliance requirements. Raymond Miller MD 08/19/2024 12:49:34 PM This report has been signed electronically. Note Initiated On: 08/19/2024 11:04 AM Number of Addenda: 0 ? [facility] ? [address] [place] [address] [facility] 08/19/2024 11:0 4 AM MULT AU MATIC OPERATOR Narrative Procedure Note Kay Isidro MD - 08/19/2024 12:50 PM CST (No note.) Oscar Zendejas MD GI PROCEDURE ORDERAB LES Performing Organization Address City/[facility]/ZIP Co de Phone Number [facility] * PT-INR [facility] (08/18/2024 6:40 AM MULT AU MATIC OPERATOR) Only the most recent of3 resultswithin the time period is included. PT 14.2 12.1 - 14.8 Seconds 08/18/2024 7:34 AM MULT AU MATIC OPERATOR [facility] INR 1.1 See Comment 08/18/2024 7:34 AM MULT AU MATIC OPERATOR [facility] Comment:The suggested therap eutic range for standard coumadin (warfarin) therapy is an INR of 2.0-3.0. For high-risk patients (Mechanical Mitral Valve Prosthesis, etc.), the suggested prophylactic therapeutic range is an INR of 2.5-3.5. Blood BLOOD SPECIMEN / Unknown Lab Venipuncture / Unknown 08/18/2024 6:40 AM MULT AU MATIC OPERATOR 08/18/2024 7:13 AM MULT AU MATIC OPERATOR Can Woo MD LAB - COAGULATION OR DERABLES [facility] [address] [place] [address], [facility] [phone] * LACTIC ACID BLOOD (08/18/2024 6:40 AM MULT AU MATIC OPERATOR) Only the most recent of4 resultswithin the time period is included. Lactic Acid-Stat 1.1 <=2.0 mmol/L 08/18/2024 7:23 AM MULT AU MATIC OPERATOR [facility] Blood BLOOD SPECIMEN / Unknown Lab Venipuncture / Unknown 08/18/2024 6:40 AM MULT AU MATIC OPERATOR 08/18/2024 6:53 AM MULT AU MATIC OPERATOR aCn Woo MD LAB - CHEMISTRY BINDU BOO [facility] [address] [place] [address], [facility] [phone] * ECHO COMPLETE W CONTRAST (08/17/2024 2:37 PM MULT AU MATIC OPERATOR) Pathologist [facility] LVOT diam 2.23 cm SSM CV FUJ [...] Region Laterality Modality Ultrasound 08/17/2024 1:34 PM MULT AU MATIC OPERATOR Narrative 08/18/2024 8:50 AM MULT AU MATIC OPERATOR Summary ??* The left ventricle is normal [...] 1955 Gender: ? Male Accession #: ? [id number] Ht: ? 65 in Wt: ? 155 lb BSA: ? 1.81 m2 HR: ? 69 bpm BP: ? 127 / ? 70 mmHg Heart Rhythm: ? Sinus Rhythm Exam Date: ? 08/17/2024 1:34 PM Exam Room: ? 411 Patient Status: ? O/P Study Site: ? [facility] Primary Location: ? [facility] EStudy Info Technical Quality: ? Fair [...] 1.00 ml Administered By: ? Kayley Koo [facility] Reaction to Contrast: ? no Reason for Technically Difficult ??Study: ? lung interference, positional limitations Staff Referring Physician: ? Can Woo Ordering Provider: ? Can Woo Attending Physician: ? Can Woo Radiology Ct Technologist: ? Kayley Koo RDCS Left Ventricle ??The [...] DI (VTI) ? 0.92 ? AV DI (Araivnd) ? 0.94 ? AV Regurgitation 2D LVOT [...] Exam Date: 08/17/2024 1:34 PM Exam Room: [facility] Patient Status: O/P Study Site: [facility] Primary Location: [facility] EStudy Info Technical Quality: Fair Exam [...] Provider: Can Woo Attending Physician: Can Woo Radiology Ct Technologist: Kayley Koo RDCS Left Ventricle The left [...] CUPID * EKG 12-LEAD (08/17/2024 12:32 PM MULT AU MATIC OPERATOR) Pathologist [facility] Ventricular Rate 73 BPM SL MUSE Atrial Rate 73 BPM [facility] MUSE P-R Interval 176 ms [facility] MUSE QRS Duration ms 94 ms [facility] MUSE Q-T Interval ms 392 ms [facility] MUSE QTC Calculation (Bezet) 431 ms [facility] MUSE Calculated P [place] 46 degrees [facility] MUSE Calculated R [place] 47 degrees [facility] MUSE Calculated T [place] 29 degrees H MUSE Interpretation EKG NORMAL SINUS RHYTHM NORMAL ECG Confirmed by KEN KOO MD ([id number]) on 08/17/2024 5:44:27 PM [facility] MUSE 08/17/2024 12:3 2 PM MULT AU MATIC OPERATOR 08/17/2024 5:44 PM MULT AU MATIC OPERATOR Can Woo MD ECG ORDERABLES [facility] MUSE * (ABNORMAL) CBC W/O DIFFERENTIAL (08/17/2024 5:13 AM MULT AU MATIC OPERATOR) [facility] WBC 5.8 4.0 - 10.7 x10E9/L 08/17/2024 5:51 AM [facility] RBC Count 3.53(L) 4.30 - 5.80 x10E12/L 08/17/2024 5:51 AM [facility] Hemoglobin 12.0(L) 13.3 - 17.5 g/dL 08/17/2024 5:51 AM [facility] Hematocrit 35.3(L) 38.7 - 51.1 % 08/17/2024 5:51 AM [facility] MCV 100.0(H) 80.0 - 98.0 fL 08/17/2024 5:51 AM [facility] MCH 34.0(H) 26.7 - 33.6 pg 08/17/2024 5:51 AM [facility] MCHC 34.0 31.7 - 36.3 g/dL 08/17/2024 5:51 AM [facility] RDW-CV 12.5 11.3 - 14.8 % 08/17/2024 5:51 AM [facility] Platelet Count 118(L) 150 - 420 x10E9/L 08/17/2024 5:51 AM [facility] MPV 10.6 7.8 - 11.4 fL 08/17/2024 5:51 AM [facility] Blood BLOOD SPECIMEN / Unknown Line Draw / Unknown 08/17/2024 5:13 AM MULT AU MATIC OPERATOR 08/17/2024 5:22 AM [facility] Can Woo MD LAB - HEMATOLOGY ORD ERABLES [facility] [address] [place] [address], [facility] [phone] * (ABNORMAL) BASIC METABOLIC PANEL (CALCIUM TOTAL) (08/17/2024 5:13 AM MULT AU MATIC OPERATOR) Only the most recent of3 resultswithin the time period is included. BUN 36(H) 7 - 26 mg/dL 08/17/2024 5:50 AM [facility] Creatinine 1.50(H) 0.71 - 1.16 mg/dL 08/17/2024 5:50 AM [facility] Sodium 142 136 - 145 mmol/L 08/17/2024 5:50 AM [facility] Potassium 4.3 3.5 - 4.5 mmol/L 08/17/2024 5:50 AM [facility] Chloride 111(H) 98 - 107 mmol/L 08/17/2024 5:50 AM [facility] CO2 24 22 - 29 mmol/L 08/17/2024 5:50 AM [facility] Glucose 103(H) 70 - 99 mg/dL 08/17/2024 5:50 AM [facility] Calcium 7.8(L) 8.4 - 10.2 mg/dL 08/17/2024 5:50 AM [facility] Anion Gap 7 6 - 16 08/17/2024 5:50 AM [facility] BUN/Creatinine Ratio 24(H) 7 - 23 08/17/2024 5:50 AM [facility] Osmolality Calculated 303(H) 275 - 295 mOsm/kg 08/17/2024 5:50 AM [facility] eGFR by CKD-EPI 51(L) >=90 mL/min/1.7 3 m2 08/17/2024 5:50 AM [facility] Blood BLOOD SPECIMEN / Unknown Line Draw / Unknown 08/17/2024 5:13 AM MULT AU MATIC OPERATOR 08/17/2024 5:21 AM MULT AU MATIC OPERATOR Can Woo MD LAB - CHEMISTRY ORDE RABTOÑO Performing Organization Address City/[facility]/ZIP Co de Phone Number [address] [address], [place] [phone] * SYPHILIS ANTIBODY CASCADING REFLEX (08/17/2024 4:07 AM MULT AU MATIC OPERATOR) Treponema pallidum Antibody Non-react bassem Non-react bassem 08/17/2024 5:09 AM [facility] Comment: No Laboratory evidence of syphilis infection. ?? Note: ??Circulating antibodies may be low or undetectable in early infection. ??If recent exposure is suspected, re-draw sample in 2-4 weeks and repeat testing. Blood BLOOD SPECIMEN / Unknown Line Draw / Unknown 08/17/2024 4:07 AM MULT AU MATIC OPERATOR 08/17/2024 4:13 AM MULT AU MATIC OPERATOR Can Woo MD LAB - SEROLOGY ORDER CHRISTIANA Performing Organization Address [facility]/ZIP Co de Phone Number [address] [address], [place] [phone] * HEMOGLOBIN A1C (08/17/2024 4:07 AM MULT AU MATIC OPERATOR) Hemoglobin A1c 5.1 <=5.6 % 08/17/2024 9:15 AM [facility] Estimated Average Glucose 100 mg/dL 08/17/2024 9:15 AM [facility] Comment: HbA1c Interpretation: Normal : < 5.7% Pre-diabetes: 5.7-6.4% Diabetes: Equal to or greater than 6.5% Test results diagnostic of diabetes should be repeated for confirmation. Treatment target values recommended by ADA and other clinical organizations should be used to evaluate metabolic control in patients. Reference: [place] [employer], Standards of Care in Diabetes -2020 In patients 70 years and older consider HbA1c target range of 7.0-7.5% (Reference: Blu Pineda et al. MELISSADA. 2012) The Sebia assay for the measurement of HbA1c is a National Glycohemoglobin Standardization Program (NGSP) certified method. Blood BLOOD SPECIMEN / Unknown Line Draw / Unknown 08/17/2024 4:07 AM MULT AU MATIC OPERATOR 08/17/2024 4:20 AM MULT AU MATIC OPERATOR Can Woo MD LAB - CHEMISTRY BINDU BOO [address] [address], [place] [phone] * (ABNORMAL) CK BLOOD (08/17/2024 4:07 AM MULT AU MATIC OPERATOR) Only the most recent of2 resultswithin the time period is included. CK Total 1,786(H) 30 - 200 U/L 08/17/2024 4:56 AM MULT AU MATIC OPERATOR [facility] Blood BLOOD SPECIMEN / Unknown Line Draw / Unknown 08/17/2024 4:07 AM MULT AU MATIC OPERATOR 08/17/2024 4:23 AM MULT AU MATIC OPERATOR Can Woo MD LAB - CHEMISTRY BINDU BOO [address] [address], [place] [phone] * (ABNORMAL) VITAMIN B12 (08/17/2024 4:07 AM MULT AU MATIC OPERATOR) Vitamin B12 182(L) 213 - 816 pg/mL 08/17/2024 5:15 AM MULT AU MATIC OPERATOR [facility] Blood BLOOD SPECIMEN / Unknown Line Draw / Unknown 08/17/2024 4:07 AM MULT AU MATIC OPERATOR 08/17/2024 4:23 AM MULT AU MATIC OPERATOR Can Woo MD LAB - CHEMISTRY BINDU BOO Performing Organization Address City/[facility]/ZIP Co de Phone Number [facility] [address] [place] [address], [place] [phone] * (ABNORMAL) TSH (08/17/2024 4:07 AM MULT AU MATIC OPERATOR) [facility] TSH 0.112(L) 0.350 - 4.940 uIU/mL 08/17/2024 5:15 AM [facility] Blood BLOOD SPECIMEN / Unknown Line Draw / Unknown 08/17/2024 4:07 AM MULT AU MATIC OPERATOR 08/17/2024 4:23 AM MULT AU MATIC OPERATOR Can Woo MD LAB - CHEMISTRY BINDU BOO Performing Organization Address City/[facility]/ZIP Co de Phone Number [facility] [address] [place] [address], [place] [phone] * GLUCOSE - POINT OF CARE (08/17/2024 4:05 AM MULT AU MATIC OPERATOR) Only the most recent of3 resultswithin the time period is included. [facility] Glucose WB/POC 85 70 - 99 mg/dL 08/17/2024 4:10 AM [facility] Specimen Type Venous 08/17/2024 4:10 AM [facility] Blood BLOOD SPECIMEN / Unknown 08/17/2024 4:05 AM MULT AU MATIC OPERATOR 08/17/2024 4:10 AM MULT AU MATIC OPERATOR Can Woo MD LAB - POINT OF CARE ORDERABLES [facility] [address] [place] [address], [place] [phone] * (ABNORMAL) DRUG SCREEN EXPANDED TOXICOLOGY URINE PANEL (08/16/2024 10:01 PM MULT AU MATIC OPERATOR) [facility] Expanded Drug Screen, Urine Positive(A) Negative 08/17/2024 12:20 PM MULT AU MATIC OPERATOR [facility] Findings Acetaminophen Caffeine Codeine Codeine glucuronide Cotinine Cyclobenzaprine Diphenhydramine Duloxetine Gabapentin Hydromorphone glucuronide Lisinopril meta-Chloropheny lpiperazine(mCPP ) Morphine Nicotine Trazodone 08/17/2024 12:20 PM MULT AU MATIC OPERATOR [facility] Urine URINE / Unknown Collection / Unknown 08/16/2024 10:01 PM MULT AU MATIC OPERATOR 08/16/2024 10:20 PM MULT AU MATIC OPERATOR Narrative [facility] - 08/17/2024 12:20 PM MULT AU MATIC OPERATOR Testing performed by Liquid Chromatography-Quadrupole Time Flight Mass Spectrometry. While mass spectrometry is highly sensitive and specific, false-positive and false-negative findings may occur in rare circumstances. If consultation is needed, please contact the Clinical Pathology Resident head neck surgeon at [phone] (M-F, 8 am ? 5 pm) or [phone] after hours. This test does not include THC or barbiturates. This testing was developed by the [facility] in keeping with CLIA requirements. The test has not been cleared or approved by the U.S. Food and Drug Administration. Can Woo MD LAB - URINE CHEMISTR Y ORDERABLES Performing Organization Address City/[facility]/ZIP Co de Phone Number [facility] [address] [place] [address], [facility] [phone] * CULTURE URINE (08/16/2024 7:46 PM MULT AU MATIC OPERATOR) Pathologist [facility] Culture Urine No growth (<100 CFU/mL) ARLEN 08/18/2024 12:06 AM MULT AU MATIC OPERATOR [facility] Urine URINE SPECIMEN OBTAINED BY CLEAN CATCH PROCEDURE / Unknown Collection / Unknown 08/16/2024 7:46 PM MULT AU MATIC OPERATOR 08/16/2024 7:53 PM MULT AU MATIC OPERATOR Can Woo MD LAB - MICROBIOLOGY O RDERABLES Performing Organization Address City/[facility]/ZIP Co de Phone Number [facility] [address] [place] [address], [facility] [phone] * (ABNORMAL) BLOOD GASES ART + COOX PANEL (08/16/2024 7:01 PM MULT AU MATIC OPERATOR) pH Arterial 7.29(L) 7.35 - 7.45 pH 08/16/2024 7:11 PM [facility] pO2 Arterial 61(L) 80 - 100 mmHg 08/16/2024 7:11 PM [facility] pCO2 Arterial 42 35 - 45 mmHg 7:11 PM [facility] HCO3 Arterial 20.2 20.0 - 30.0 mmol/L 08/16/2024 7:11 PM [facility] BE Arterial -6.1(L) -2.0 - 2.0 mmol/L 08/16/2024 7:11 PM [facility] Oxyhemoglobin Arterial 90.1 % 08/16/2024 7:11 PM [facility] Dexoyhemoglobin (HHB) % 7.0 % 08/16/2024 7:11 PM [facility] Methemoglobin <0.8 0.0 - 2.0 % 08/16/2024 7:11 PM [facility] Carboxyhemoglobin 2.6(H) 0.0 - 2.0 % 2023 7:11 PM [facility] O2 Content Arterial 16.8 Interpret within clinical context ml/dL 08/16/2024 7:11 PM [facility] Hemoglobin by COOX 13.3 12.0 - 17.6 g/dL 08/16/2024 7:11 PM [facility] O2 Saturation Arterial 93 90 - 100 % 08/16/2024 7:11 PM [facility] FI O2 Arterial 21.0 % 08/16/2024 7:11 PM [facility] Blood, arterial ARTERIAL BLOOD SPECIMEN / Unknown Arterial Puncture / Unknown 08/16/2024 7:01 PM MULT AU MATIC OPERATOR 08/16/2024 7:09 PM [facility] - 08/16/2024 7:11 PM [facility] Carboxyhemoglobin Normal Concentration: Non-smokers: 0-2%; Smokers: 0-9%; Toxic: >20% Can Woo MD LAB - BLOOD GASES OR DERABLES [facility] [address] [place] [address], [facility] [phone] * LACTIC ACID BLOOD REFLEX TO REPEAT (08/16/2024 3:18 PM MULT AU MATIC OPERATOR) Lactic Acid-Stat 1.7 <=2.0 mmol/L 08/16/2024 3:51 PM [facility] Blood BLOOD SPECIMEN / Unknown Venipuncture / Unknown 08/16/2024 3:18 PM MULT AU MATIC OPERATOR 08/16/2024 3:26 PM MULT AU MATIC OPERATOR Can Woo MD LAB - CHEMISTRY BINDU BOO Performing Organization Address City/[facility]/ZIP Co de Phone Number [address] [address], [place] [phone] * (ABNORMAL) URINE MICROSCOPIC ONLY REFLEX TO CULTURE (08/16/2024 9:23 AM MULT AU MATIC OPERATOR) Reflex Status Culture not indicated 08/16/2024 10:57 AM [facility] RBC UA 6-10(A) None Seen, 0-2, 3-5 /HPF 08/16/2024 10:57 AM [facility] WBC UA 0-5 None Seen, 0-5 /HPF 08/16/2024 10:57 AM [facility] Bacteria UA 1+(A) None /HPF 08/16/2024 10:57 AM [facility] Squamous Epithelial Cells UA 6-10(A) None Seen, 0-2, 3-5 /HPF 08/16/2024 10:57 AM [facility] Mucus UA 2+ /LPF 08/16/2024 10:57 AM [facility] Hyaline Casts UA 3-5(A) None Seen, 0-2 /LPF 08/16/2024 10:57 AM [facility] Urine URINE SPECIMEN OBTAINED BY CLEAN CATCH PROCEDURE / Unknown Collection / Unknown 08/16/2024 9:23 AM [employer] OPER[employer] 08/16/2024 9:44 AM [employer]PER[employer] Cresencio Gonzalez MD LAB - URINALYSIS O RDERABLES Performing Organization Address City/[facility]/ZIP Co de Phone Number [address] [phone] [phone] * (ABNORMAL) URINALYSIS REFLEX MICROSCOPIC REFLEX CULTURE (08/16/2024 9:23 AM M[employer] OPERATOR) Color UA Rosario(A) Straw, Yellow 08/16/2024 9:53 AM [facility] Clarity UA Slt Cloudy(A) Clear 08/16/2024 9:53 AM [facility] Specific Rolla UA 1.041(H) 1.005 - 1.030 08/16/2024 9:53 AM [facility] pH UA 5.0 5.0 - 8.0 pH 08/16/2024 9:53 AM [facility] Protein UA 1+(A) Negative 08/16/2024 9:53 AM [facility] Glucose UA Negative Negative 08/16/2024 9:53 AM [facility] Ketone UA Negative Negative 08/16/2024 9:53 AM [facility] Bilirubin UA Negative Negative 08/16/2024 9:53 AM [facility] Blood UA 3+(A) Negative 08/16/2024 9:53 AM [facility] Nitrite UA Negative Negative 08/16/2024 9:53 AM [facility] Leukocyte Esterase Negative Negative 08/16/2024 9:53 AM [facility] Urobilinogen UA 2.0(A) Negative mg/dL 08/16/2024 9:53 AM [facility] Urine URINE SPECIMEN OBTAINED BY CLEAN CATCH PROCEDURE / Unknown Collection / Unknown 08/16/2024 9:23 AM MULT AU MATIC OPERATOR 08/16/2024 9:44 AM [facility] - 08/16/2024 9:53 AM MULT AU MATIC OPERATOR Cresencio Gonzalez MD LAB - URINALYSIS O RDERABLES [facility] [address] [place] [address], [facility] [phone] * UREA NITROGEN URINE RANDOM (08/16/2024 9:23 AM MULT AU MATIC OPERATOR) Urea Nitrogen Random Urine 310 Not Established mg/dL 08/16/2024 10:08 AM [facility] Urine URINE SPECIMEN OBTAINED BY CLEAN CATCH PROCEDURE / Unknown Collection / Unknown 08/16/2024 9:23 AM MULT AU MATIC OPERATOR 08/16/2024 9:44 AM [facility] Francesco Malik MD LAB - URINE UMBRELLA MENDER RY ORDERABLES [facility] [address] [place] [address], [facility] [phone] * (ABNORMAL) URINE DRUG SCREEN IMMUNOASSAY (08/16/2024 9:23 AM [facility]) [facility] Amphetamines Screen Urine Negative Negative : < 1000 ng/mL 08/16/2024 10:07 AM [facility] Barbiturates Screen Urine Negative Negative : < 200 ng/mL 08/16/2024 10:07 AM [facility] Benzodiazepine Screen Urine Negative Negative : < 200 ng/mL 08/16/2024 10:07 AM [facility] Opiates Urine Positive(A) Negative : < 300 ng/mL 08/16/2024 10:07 AM [facility] Comment:Positive urine opiat e screening results should be confirmed by another generally accepted non-immunological method such as gas chromatography or mass spectrometry. Cocaine Metabolites Urine Negative Negative : < 300 ng/mL 08/16/2024 10:07 AM [facility] Phencyclidine Screen Urine Negative Negative : < 25 ng/ml 08/16/2024 10:07 AM [facility] Cannabinoids Screen Urine Negative Negative : <50 ng/mL 08/16/2024 10:07 AM [facility] Methadone Screen Urine Negative Negative : < 300 ng/mL 08/16/2024 10:07 AM [facility] Fentanyl Screen Urine Positive(A) Negative : <1.5 ng/mL 08/16/2024 10:07 AM [facility] Comment:Positive urine fenta nyl screening results should be confirmed by another generally accepted non-immunological method such as gas chromatography or mass spectrometry. Urine URINE / Unknown Collection / Unknown 08/16/2024 9:23 AM MULT AU MATIC OPERATOR 08/16/2024 9:44 AM [facility] Narrative [facility] - 08/16/2024 10:07 AM MULT AU MATIC OPERATOR The Urine Toxicology Screening Panel does not screen for Propoxyphene, Meprobamate, Carisoprodol, Trazodone, dbxg-xqv-carmeoi medications and/or volatiles (Acetone, Isopropanol, Methanol or Ethylene Glycol). Ethanol, Salicylate, Acetaminophen, Tricyclic Antidepressants and several therapeutic drugs may be individually assayed in serum or plasma specimen. Toxicology testing by the [facility] is an aid to medical diagnosis and treatment of patients. No documented chain of custody was maintained. Results are intended to be used for clinical purposes only. ? Cresencio Gonzalez MD LAB - URINE CHEMIS TRY ORDERABLES Performing Organization Address [facility] Co de Phone Number [address] [address], [facility] [phone] * CREATININE URINE RANDOM (08/16/2024 9:23 AM MULT AU MATIC OPERATOR) Creatinine Urine 113.55 Not Established mg/dL 08/16/2024 10:08 AM MULT AU MATIC OPERATOR [facility] Urine URINE SPECIMEN OBTAINED BY CLEAN CATCH PROCEDURE / Unknown Collection / Unknown 08/16/2024 9:23 AM MULT AU MATIC OPERATOR 08/16/2024 9:44 AM MULT AU MATIC OPERATOR Francesco Malik MD LAB - URINE UMBRELLA MENDER RY ORDERABLES Performing Organization Address [facility] Co de Phone Number [address] [address], [place] [phone] * LYTES (NA K) URINE RANDOM PANEL (08/16/2024 9:23 AM MULT AU MATIC OPERATOR) Sodium Urine 60 Not Established mmol/L 08/16/2024 10:08 AM MULT AU MATIC OPERATOR [facility] Potassium Urine 22.6 Not Established mmol/L 08/16/2024 10:08 AM [facility] Urine URINE SPECIMEN OBTAINED BY CLEAN CATCH PROCEDURE / Unknown Collection / Unknown 08/16/2024 9:23 AM MULT AU MATIC OPERATOR 08/16/2024 9:44 AM MULT AU MATIC OPERATOR Francesco Malik MD LAB - URINE UMBRELLA MENDER RY ORDERABLES Performing Organization Address City/[facility]/ZIP Co de Phone Number [facility] [address] [place] [address], [facility] [phone] * (ABNORMAL) TRICYCLICS SCREEN BLOOD (08/16/2024 8:52 AM MULT AU MATIC OPERATOR) Tricyclic Antidepressants 248(H) 80 - 200 ng/mL 08/16/2024 9:39 AM [facility] Blood BLOOD SPECIMEN / Unknown Venipuncture / Unknown 08/16/2024 8:52 AM MULT AU MATIC OPERATOR 08/16/2024 9:03 AM MULT AU MATIC OPERATOR Narrative [facility] - 08/16/2024 9:39 AM MULT AU MATIC OPERATOR Many drugs significantly cross-react with this assay, [...] Gonzalez MD LAB - CHEMISTRY OR DERABLES [facility] [address] [place] [address], [facility] [phone] * (ABNORMAL) HEPATIC FUNCTION PANEL (08/16/2024 8:52 AM MULT AU MATIC OPERATOR) Protein Total 5.7(L) 6.0 - 8.3 g/dL 9:36 AM [facility] Albumin 2.7(L) 3.4 - 5.0 g/dL 08/16/2024 9:36 AM [facility] Bilirubin Total 0.4 0.2 - 1.2 mg/dL 08/02 9:36 AM [facility] Bilirubin Conjugated 0.3 0.1 - 0.5 mg/dL 08/16/2024 9:36 AM [facility] Bilirubin Unconjugated 0.1 Unconjugated Bilirubin is a calculated value: Reference ranges have not been established. mg/dL 08/16/2024 9:36 AM [facility] Alkaline Phosphatase 64 40 - 150 U/L 08/16/2024 9:36 AM [facility] ALT 41 5 - 55 U/L 08/16/2024 9:36 AM [facility] AST 78(H) 5 - 34 U/L 08/16/2024 9:36 AM [facility] Albumin/Globulin Ratio 0.9(L) 1.1 - 2.3 08/16/2024 9:36 AM [facility] Blood BLOOD SPECIMEN / Unknown Venipuncture / Unknown 08/16/2024 8:52 AM MULT AU MATIC OPERATOR 08/16/2024 9:12 AM [facility] Francesco Malki MD LAB - CHEMISTRY ORD ERABLES [facility] [address] [place] [address], [facility] [phone] * (ABNORMAL) SALICYLATE LEVEL BLOOD (08/16/2024 8:52 AM MULT AU MATIC OPERATOR) Salicylate <5(L) 15 - 30 mg/dL 08/16/2024 9:36 AM [facility] Blood BLOOD SPECIMEN / Unknown Venipuncture / Unknown 08/16/2024 8:52 AM MULT AU MATIC OPERATOR 08/16/2024 9:12 AM [facility] - 08/16/2024 9:36 AM MULT AU MATIC OPERATOR This test is not intended for use with low-dose aspirin therapy. Most patients on low-dose aspirin for cardiovascular prophylaxis will have serum concentrations near or below the lower limit of the analytical range. Cresencio Gonzalez MD LAB - CHEMISTRY OR DERABLES Performing Organization Address [facility] Co de Phone Number [address] [address], [facility] [phone] * ACETAMINOPHEN LEVEL (08/16/2024 8:52 AM MULT AU MATIC OPERATOR) Pathologist [facility] Acetaminophen <3.0 <3.0 ug/mL 08/16/2024 9:36 AM [facility] Blood BLOOD SPECIMEN / Unknown Venipuncture / Unknown 08/16/2024 8:52 AM MULT AU MATIC OPERATOR 08/16/2024 9:12 AM [facility] - 08/16/2024 9:36 AM [facility] Acetaminophen Toxicity Levels (Hours Post [...] may alter the peak level. Contact the [facility] at or reserved for healthcare professionals to assist you in evaluating potentially toxic acetaminophen levels. Cresencio Gonzalez MD LAB - CHEMISTRY OR DERABLES Performing Organization Address [facility]/ZIP Co de Phone Number [facility] [address] [place] [address], [facility] [phone] * XR PELVIS 1 OR 2VW (08/16/2024 7:20 AM MULT AU MATIC OPERATOR) Anatomical Region Laterality Modality Pelvis Digital Radiogra phy 08/16/2024 7:22 AM MULT AU MATIC OPERATOR Impressions 08/16/2024 3:31 PM MULT AU MATIC OPERATOR IMPRESSION: No acute displaced fracture or dislocation of pelvis is identified. Report dictated by Rafi Vicente MD (senior vice president & general counsel). Mason Brizuela have personally reviewed and interpreted this examination/study. > Interpreting Provider: Mason Lucero on 08/16/2024 3:31 PM Narrative 08/16/2024 3:31 PM MULT AU MATIC OPERATOR EXAMINATION: XR PELVIS 1 OR 2VW DATE/TIME OF EXAM: ??08/16/2024 7:22 AM, LOCATION ??[facility] HISTORY: Trauma Fracture suspected COMPARISON: No prior [...] DATE/TIME OF EXAM: 08/16/2024 7:22 AM, LOCATION [facility] HISTORY: Trauma Fracture suspected COMPARISON: No prior [...] identified. Report dictated by Rafi Vicente MD (senior vice president & general counsel). Mason Brizuela have personally reviewed and interpreted this examination/study. > Interpreting Provider: Mason Lucero on 08/16/2024 3:31 PM Cresencio Gonzalez MD DIAGNOSTIC IMAGING ORDERABLES * CT CHEST ABDOMEN PELVIS W CONT - Abdomen-pelvis trauma, blunt or penetrating (08/16/2024 6:58 AM MULT AU MATIC OPERATOR) Anatomical Region Laterality Modality Chest, Abdomen, Pelvis Computed Tomography 08/16/2024 8:11 AM MULT AU MATIC OPERATOR Impressions 08/16/2024 5:01 PM MULT AU MATIC OPERATOR Impression 1. No acute visceral, vascular, or [...] gastroesophageal reflux/esophagitis. Report dictated by Bryon Watson MD(senior vice president & general counsel). I, Viviana Rain MD have personally reviewed and interpreted this examination/study. > Interpreting Provider: Viviana Rain MD on 08/16/2024 5:01 PM Narrative 08/16/2024 5:01 PM MULT AU MATIC OPERATOR PROCEDURE: ??CT CHEST ABDOMEN PELVIS W CONT, DATE/TIME OF EXAM: ??08/16/2024 7:20 AM, LOCATION ??[facility] INDICATION: Trauma COMPARISON: None. EXAMINATION: Computed tomography [...] CONT, DATE/TIME OF EXAM:08/16/2024 7:20 AM, LOCATION [facility] INDICATION: Trauma COMPARISON: None. EXAMINATION: Computed tomography [...] ofgastroesophageal reflux/esophagitis. Report dictated by Bryon Watson MD(senior vice president & general counsel). Viviana Brizuela MD have personally reviewed and interpreted this examination/study. > Interpreting Provider: Viviana Rain MD on 08/16/2024 5:01 PM Cresencio Gonzalez MD CT ORDERABLES * CT Angio Lower Extremity Right (08/16/2024 6:58 AM MULT AU MATIC OPERATOR) Anatomical Region Laterality Modality Lower Extremity Computed Tomogra phy 08/16/2024 7:57 AM MULT AU MATIC OPERATOR Impressions 08/16/2024 5:06 PM MULT AU MATIC OPERATOR IMPRESSION: Three-vessel runoff of bilateral lower extremity arteries to the level of ankle. Of note, the dorsalis pedis and tibialis posterior arteries are diminutive bilaterally likely secondary to diffuse spasm but patent without evidence of contrast extravasation to suggest arterial injury or active bleeding. > Dictated by Felix Awad MD (senior vice president & general counsel). Viviana Brizuela MD have personally reviewed and interpreted this examination/study. > Interpreting Provider: Viviana Rain MD on 08/16/2024 5:06 PM Narrative 08/16/2024 5:06 PM MULT AU MATIC OPERATOR PROCEDURE: ??CT ANGIO LOWER EXTREMITY RIGHT, CT ANGIO LOWER EXTREMITY LEFT, DATE/TIME OF EXAM: ??08/16/2024 7:20 AM, LOCATION ??[facility] INDICATION: W10.8XXA: Fall (on) (from) other stairs [...] DATE/TIME OF EXAM: 08/16/2024 7:20 AM, LOCATION [facility] INDICATION: W10.8XXA: Fall (on) (from) other stairs [...] the technologist and sent to the workstation forBrandProjectview. FINDINGS: Right common iliac artery: The imaged [...] bleeding. > Dictated by Felix Awad MD (senior vice president & general counsel). Viviana Brizuela MD have personally reviewed and interpreted this examination/study. > Interpreting Provider: Viviana Rain MD on 08/16/2024 5:06 PM Chet Henning MD CT ORDERABLES * CT Angio Lower Extremity Left (08/16/2024 6:58 AM MULT AU MATIC OPERATOR) Anatomical Region Laterality Modality Lower Extremity Computed Tomogra phy 08/16/2024 7:57 AM MULT AU MATIC OPERATOR Impressions 08/16/2024 5:06 PM MULT AU MATIC OPERATOR IMPRESSION: Three-vessel runoff of bilateral lower extremity arteries to the level of ankle. Of note, the dorsalis pedis and tibialis posterior arteries are diminutive bilaterally likely secondary to diffuse spasm but patent without evidence of contrast extravasation to suggest arterial injury or active bleeding. > Dictated by Felix Awad MD (senior vice president & general counsel). Viviana Brizuela MD have personally reviewed and interpreted this examination/study. > Interpreting Provider: Viviana Rain MD on 08/16/2024 5:06 PM Narrative 08/16/2024 5:06 PM MULT AU MATIC OPERATOR PROCEDURE: ??CT ANGIO LOWER EXTREMITY RIGHT, CT ANGIO LOWER EXTREMITY LEFT, DATE/TIME OF EXAM: ??08/16/2024 7:20 AM, LOCATION ??[facility] INDICATION: W10.8XXA: Fall (on) (from) other stairs [...] DATE/TIME OF EXAM: 08/16/2024 7:20 AM, LOCATION [facility] INDICATION: W10.8XXA: Fall (on) (from) other stairs [...] bleeding. > Dictated by Felix Awad MD (senior vice president & general counsel). I, Viviana Rain MD have personally reviewed and interpreted this examination/study. > Interpreting Provider: Viviana Rain MD on 08/16/2024 5:06 PM Chet Henning MD CT ORDERABLES * CT LUMBAR SPINE WO CONTRAST - T/L-spine trauma, Spine fracture (08/16/2024 6:58 AM MULT AU MATIC OPERATOR) Anatomical Region Laterality Modality Spine Computed Tomogra phy 08/16/2024 6:28 AM MULT AU MATIC OPERATOR Impressions 08/16/2024 10:30 AM MULT AU MATIC OPERATOR IMPRESSION: 1.No acute intracranial hemorrhage, midline shift, [...] intrathoracic and intra-abdominal findings. Report dictated by Raif Vicente MD (senior vice president & general counsel). I, Ruby Villanueva MD have personally reviewed and interpreted this examination/study. > Interpreting Provider: Ruby Villanueva MD on 08/16/2024 10:30 AM Narrative 08/16/2024 10:30 AM MULT AU MATIC OPERATOR PROCEDURE: ??CT HEAD WO CONTRAST, CT LUMBAR SPINE WO CONTRAST, CT THORACIC SPINE WO CONTRAST, CT CERVICAL SPINE WO CONTRAST, DATE/TIME OF EXAM: 08/16/2024 7:20 AM, LOCATION ??[facility] INDICATION: Trauma EXAMINATION: 1.Computed tomography (CT) of [...] DATE/TIME OF EXAM: 08/16/2024 7:20 AM, LOCATION [facility] INDICATION: Trauma EXAMINATION: 1.Computed tomography (CT) of [...] findings. Report dictated by Rafi Vicente MD (senior vice president & general counsel). I, Ruby Villanueva MD have personally reviewed and interpretedthis examination/study. > Interpreting Provider: Ruby Villanueva MD on 08/16/2024 10:30AM Cresencio Gonzalez MD CT ORDERABLES * CT THORACIC SPINE WO CONTRAST - T/L-spine trauma, spine fracture (08/16/2024 6:58 AM MULT AU MATIC OPERATOR) Anatomical Region Laterality Modality Spine Computed Tomogra phy 08/16/2024 6:28 AM MULT AU MATIC OPERATOR Impressions 08/16/2024 10:30 AM MULT AU MATIC OPERATOR IMPRESSION: 1.No acute intracranial hemorrhage, midline shift, [...] findings. Report dictated by Rafi Vicente MD (senior vice president & general counsel). IRuby MD have personally reviewed and interpreted this examination/study. > Interpreting Provider: Ruby Villanueva MD on 08/16/2024 10:30 AM Narrative 08/16/2024 10:30 AM MULT AU MATIC OPERATOR PROCEDURE: ??CT HEAD WO CONTRAST, CT LUMBAR SPINE WO CONTRAST, CT THORACIC SPINE WO CONTRAST, CT CERVICAL SPINE WO CONTRAST, DATE/TIME OF EXAM: 08/16/2024 7:20 AM, LOCATION ??[facility] INDICATION: Trauma EXAMINATION: 1.Computed tomography (CT) of [...] DATE/TIME OF EXAM: 08/16/2024 7:20 AM, LOCATION [facility] INDICATION: Trauma EXAMINATION: 1.Computed tomography (CT) of [...] findings. Report dictated by Rafi Vicente MD (senior vice president & general counsel). Ruby Brizuela MD have personally reviewed and interpretedthis examination/study. > Interpreting Provider: Ruby Villanueva MD on 08/16/2024 10:30AM Cresencio Gonzalez MD CT ORDERABLES * CT CERVICAL SPINE WO CONTRAST - C-Spine Trauma, Spine fracture (08/16/2024 6:58 AM MULT AU MATIC OPERATOR) Anatomical Region Laterality Modality Spine Computed Tomogra phy 08/16/2024 6:28 AM MULT AU MATIC OPERATOR Impressions 08/16/2024 10:30 AM MULT AU MATIC OPERATOR IMPRESSION: 1.No acute intracranial hemorrhage, midline shift, [...] findings. Report dictated by Rafi Vicente MD (senior vice president & general counsel). Ruby Brizuela MD have personally reviewed and interpreted this examination/study. > Interpreting Provider: Ruby Villanueva MD on 08/16/2024 10:30 AM Narrative 08/16/2024 10:30 AM MULT AU MATIC OPERATOR PROCEDURE: ??CT HEAD WO CONTRAST, CT LUMBAR SPINE WO CONTRAST, CT THORACIC SPINE WO CONTRAST, CT CERVICAL SPINE WO CONTRAST, DATE/TIME OF EXAM: 08/16/2024 7:20 AM, LOCATION ??[facility] INDICATION: Trauma EXAMINATION: 1.Computed tomography (CT) of [...] DATE/TIME OF EXAM: 08/16/2024 7:20 AM, LOCATION [facility] INDICATION: Trauma EXAMINATION: 1.Computed tomography (CT) of [...] findings. Report dictated by Rafi Vicente MD (senior vice president & general counsel). Ruby Brizuela MD have personally reviewed and interpretedthis examination/study. > Interpreting Provider: Ruby Villanueva MD on 08/16/2024 10:30AM Cresencio Gonzalez MD CT ORDERABLES * CT HEAD WO CONTRAST - Head Trauma, CSF leak, mental status changes (08/16/2024 6:58 AM MULT AU MATIC OPERATOR) Anatomical Region Laterality Modality Head Computed Tomogra phy 08/16/2024 6:28 AM MULT AU MATIC OPERATOR Impressions 08/16/2024 10:30 AM MULT AU MATIC OPERATOR IMPRESSION: 1.No acute intracranial hemorrhage, midline shift, [...] findings. Report dictated by Rafi Vicente MD (senior vice president & general counsel). I, Ruby Villanueva MD have personally reviewed and interpreted this examination/study. > Interpreting Provider: Ruby Villanueva MD on 08/16/2024 10:30 AM Narrative 08/16/2024 10:30 AM MULT AU MATIC OPERATOR PROCEDURE: ??CT HEAD WO CONTRAST, CT LUMBAR SPINE WO CONTRAST, CT THORACIC SPINE WO CONTRAST, CT CERVICAL SPINE WO CONTRAST, DATE/TIME OF EXAM: 08/16/2024 7:20 AM, LOCATION ??[facility] INDICATION: Trauma EXAMINATION: 1.Computed tomography (CT) of [...] DATE/TIME OF EXAM: 08/16/2024 7:20 AM, LOCATION [facility] INDICATION: Trauma EXAMINATION: 1.Computed tomography (CT) of [...] findings. Report dictated by Rafi Vicente MD (senior vice president & general counsel). I, Ruby Villanueva MD have personally reviewed and interpretedthis examination/study. > Interpreting Provider: Ruby Villanueva MD on 08/16/2024 10:30AM Cresencio Gonzalez MD CT ORDERABLES * XR CHEST 1VW PORTABLE (08/16/2024 6:11 AM MULT AU MATIC OPERATOR) Anatomical Region Laterality Modality Chest Digital Radiogra phy 08/16/2024 6:04 AM MULT AU MATIC OPERATOR Narrative 08/16/2024 2:29 PM MULT AU MATIC OPERATOR PROCEDURE: ??XR CHEST 1VW PORTABLE, DATE/TIME OF EXAM: ??08/16/2024 5:44 AM, LOCATION ??[facility] INDICATION: Trauma ADDITIONAL CLINICAL INFORMATION: Ordering Provider [...] visualized. Report dictated by Rafi Vicente MD (senior vice president & general counsel). Mason Brizuela have personally reviewed and interpreted this examination/study. > Interpreting Provider: Mason Lucero on 08/16/2024 2:29 PM Procedure Note Mason Lucero MD - 08/16/2024 PROCEDURE: XR CHEST 1VW PORTABLE, DATE/TIME OF EXAM: 08/16/2024 5:44AM, LOCATION [facility] INDICATION: Trauma ADDITIONAL CLINICAL INFORMATION: Ordering Provider [...] visualized. Report dictated by Rafi Vicente MD (senior vice president & general counsel). Mason Brizuela have personally reviewed and interpreted this examination/study. > Interpreting Provider: Mason Lucero on 08/16/2024 2:29 PM Cresencio Gonzalez MD DIAGNOSTIC IMAGING ORDERABLES * PTT [facility] (08/16/2024 5:50 AM MULT AU MATIC OPERATOR) APTT 27.4 23.0 - 38.4 Seconds 08/16/2024 6:38 AM MULT AU MATIC OPERATOR [facility] Comment:Suggested therapeuti c range for full dose I.V. unfractionated heparin therapy for venous thromboembolism is 71 to 109 seconds. Blood BLOOD SPECIMEN / Unknown Venipuncture / Unknown 08/16/2024 5:50 AM MULT AU MATIC OPERATOR 08/16/2024 6:12 AM MULT AU MATIC OPERATOR Cresencio Gonzalez MD LAB - COAGULATION ORDERABLES Performing Organization Address City/[facility]/ZIP Co de Phone Number [address] [address], [place] [phone] * TYPE + SCREEN PANEL (08/16/2024 5:50 AM MULT AU MATIC OPERATOR) Antibody Screen NEG 6:49 AM MULT AU MATIC OPERATOR [facility] LAB ABO Rh B POS 08/16/2024 6:49 AM MULT AU MATIC OPERATOR [facility] B[facility] LAB Blood Bank BLOOD SPECIMEN / Unknown Venipuncture / Unknown 08/16/2024 5:50 AM MULT AU MATIC OPERATOR 08/16/2024 6:13 AM MULT AU MATIC OPERATOR Cresencio Gonzalez MD LAB - BLOOD BANK O RDERABLES Performing Organization Address [facility] Co de Phone Number [facility] B[facility] LAB [address] [place] [phone], [place] [phone] * LIPASE BLOOD (08/16/2024 5:50 AM MULT AU MATIC OPERATOR) Lipase 13 8 - 78 U/L 08/16/2024 6:31 AM MULT AU MATIC OPERATOR [facility] Blood BLOOD SPECIMEN / Unknown Venipuncture / Unknown 08/16/2024 5:50 AM MULT AU MATIC OPERATOR 08/16/2024 6:10 AM MULT AU MATIC OPERATOR Narrative [facility] - 08/16/2024 6:31 AM MULT AU MATIC OPERATOR Lipase results from the [employer] analyzer may not be comparable with other methodologies. Cresencio Gonzalez MD LAB - CHEMISTRY OR DERABLES Performing Organization Address City/[facility]/ZIP Co de Phone Number [address] [address], [place] [phone] * ALCOHOL ETHYL BLOOD (08/16/2024 5:50 AM [facility]) Ethanol (mg/dL) <10 <10 mg/dL 6:31 AM [facility] Ethanol Calculated (g/dL) <0.010 <=0.010 g/dL 08/16/2024 6:31 AM [facility] Blood BLOOD SPECIMEN / Unknown Venipuncture / Unknown 08/16/2024 5:50 AM MULT AU MATIC OPERATOR 08/16/2024 6:10 AM [facility] Narrative [facility] - 08/16/2024 6:31 AM [facility] Ethanol Interp <10: None Detected. Depression of INTERNET ARCHITECT: >100 mg/dl Potentially Critical: >250 mg/dl Potentially [...] Gonzalez MD LAB - CHEMISTRY OR DERABLES [facility] [address] [place] [address], [facility] [phone] Care Teams Television Specialist Relationship Specialty Start Date End Date Mark Carmichael DO [address] [place] [id number] PCP - General Family Medicine 08/16/24
--- OUTSIDE RECORDS SUMMARY | 2024-08-20 14:25 | XMS_ITS | Encounter Summary ---
Author Organization [facility] Address [address] [place] [address]. [place] [address] [place] [address] Care Team Providers Care Stratigrapher Name Role Phone Mark Carmichael DO Primary Care Provider Reason for Visit * Auth/Cert (Routine) Specialty Diagnoses / Procedures Referred By Amanda espinoza Referred To Contact Home Health Services Referral ID Status Reason Start Date Expiration Date Visits Re quested Visits Authorized [id number] 1 1 Encounter Details Date Type Department Care Team (Late st Contact Info) Description 08/15/2022 Home Care Visit [facility] Home Care [facility] [address] [place] [address] Conchita Cazares, RN [address] [place] [address] COC COORD OF CARE INTERDISCIPLINARY MTG Social [...] Coronavirus/COVID-19? No / Unsure 08/03/2022 2:21 AM DIPPER MACHINE OPERATOR documented as of this encounter Functional Status * RETIRED Are you deaf or do you have serious difficulty hearing Answer Date of Assessment Author Status No 07/25/2022 11:00 PM DIPPER MACHINE OPERATOR Acti ve * RETIRED Are you blind or do you have serious difficulty seeing, even when wearing glasses? Answer Date of Assessment Author Status No 07/25/2022 11:00 PM DIPPER MACHINE OPERATOR Acti ve * Do you have serious difficulty walking or climbing stairs? Answer Date of Assessment Author Status No 07/25/2022 11:00 PM DIPPER MACHINE OPERATOR Katie Vega ma, RN Active * Do you have difficulty dressing or bathing? Answer Date of Assessment Author Status No 07/25/2022 11:00 PM DIPPER MACHINE OPERATOR Katie Vega ma RN Active * Because of a physical, mental, or emotional condition, do you have difficulty doing errands alone such as visiting a doctor's office or shopping? Answer Date of Assessment Author Status No 07/25/2022 11:00 PM DIPPER MACHINE OPERATOR Katie Vega ma RN Active documented as of this encounter Mental Status * Because of a physical, mental, or emotional condition, do you have serious difficulty concentrating, remembering, or making decisions? Answer Entry Date Author Status No 07/25/2022 11:00 PM DIPPER MACHINE OPERATOR Katie Vega ma, RN Active documented in this encounter Progress Notes * Conchita Cazares RN - 08/15/2022 8:11 AM CSTTerritory: [facility]: [place] Referrals to other disciplines needed: Yes Home Health Correction Reason for Services: SN for management IV infusion antibiotic per midline catheter, cardiopulmonaryassessment related to pneumonia Past Medical History: ??? Respiratory failure (CMS/HCC) pneumonia Loculated effusion -s/p chest tube and VATS for Empyema Copd S/p vats and right decortication ER MACHINE OPERATOR documented in this encounter Plan of Treatment Not on file documented as of this encounter Goals Goal Patient Goal Type Associated Problems Recent Progress Patient-Stated? Author Family - family caregiver with be involved in care transitions and discharge planning Lifestyle No Angela Dawkins, AGENT PRODUCER documented as of this encounter Visit Diagnoses Not on filedocumented in this encounter Care Teams Stratigrapher Relationship Specialty Start Date End Date Mark Carmichael DO [address] [place] [address] PCP - General FAMILY PRACTICE 07/22/22 documented as of this encounter
--- OUTSIDE RECORDS SUMMARY | 2024-08-20 14:25 | XMS_ITS | Encounter Summary ---
Author Organization [facility] Address [address] [place] [address]. [place] [address] [place] [address] Care Team Providers Care Fisher Diving Name Role Phone Mark Carmichael DO Primary Care Provider [phone] Encounter Details Date Type Department Care Team [...] Coronavirus/COVID-19? No / Unsure 10/03/2022 3:02 PM ACCOUNTS PAYABLE PAYROLL COORDINATOR documented as of this encounter Functional Status * RETIRED Are you deaf or do you have serious difficulty hearing Answer Date of Assessment Author Status No 07/25/2022 11:00 PM ACCOUNTS PAYABLE PAYROLL COORDINATOR Acti ve * RETIRED Are you blind or do you have serious difficulty seeing, even when wearing glasses? Answer Date of Assessment Author Status No 07/25/2022 11:00 PM ACCOUNTS PAYABLE PAYROLL COORDINATOR Acti ve * Do you have serious difficulty walking or climbing stairs? Answer Date of Assessment Author Status No 07/25/2022 11:00 PM ACCOUNTS PAYABLE PAYROLL COORDINATOR Katie Vega ma R, RN Active * Do you have difficulty dressing or bathing? Answer Date of Assessment Author Status No 07/25/2022 11:00 PM ACCOUNTS PAYABLE PAYROLL COORDINATOR Katie Vega ma, RN Active * Because of a physical, mental, or emotional condition, do you have difficulty doing errands alone such as visiting a doctor's office or shopping? Answer Date of Assessment Author Status No 07/25/2022 11:00 PM ACCOUNTS PAYABLE PAYROLL COORDINATOR Katie Vega ma, RN Active documented as of this encounter Mental Status * Because of a physical, mental, or emotional condition, do you have serious difficulty concentrating, remembering, or making decisions? Answer Entry Date Author Status No 07/25/2022 11:00 PM ACCOUNTS PAYABLE PAYROLL COORDINATOR Katie Vega ma, RN Active documented in this encounter Plan of Treatment Not on file documented as of this encounter Goals Goal Patient Goal Type Associated Problems Recent Progress Patient-Stated? Author Family - family caregiver with be involved in care transitions and discharge planning Lifestyle No Angela Dawkins, ROCKET ENGINE TESTER documented as of this encounter Visit Diagnoses Not on filedocumented in this encounter Care Teams Fisher Diving Relationship Specialty Start Date End Date Mark Carmichael DO [address] [place] [address] PCP - General FAMILY PRACTICE 07/22/22 documented as of this encounter
--- OUTSIDE RECORDS SUMMARY | 2024-08-20 14:25 | XMS_ITS | Encounter Summary ---
Author Organization [facility] Address [address] [place] [address]. [place] [address] [place] [address] Care Team Providers Care Certified Hyperbaric Technologist Name Role Phone Mark Carmichael DO Primary Care Provider Encounter Details Date Type Department Care Team (Latest Contact Info) Description 08/20/2022 12:20 PM HEATING AND VENTILATION ENGINEER - 08/20/2022 11:59 PM HEATING AND VENTILATION ENGINEER Hospital Encounter [facility] [place] [address] Zoila Farias MD [address] [place] [address] Discharge Disposition: Home or Self Care (Routine [...] Coronavirus/COVID-19? No / Unsure 08/03/2022 2:21 AM HEATING AND VENTILATION ENGINEER documented as of this encounter Functional Status * RETIRED Are you deaf or do you have serious difficulty hearing Answer Date of Assessment Author Status No 07/25/2022 11:00 PM HEATING AND VENTILATION ENGINEER Acti ve * RETIRED Are you blind or do you have serious difficulty seeing, even when wearing glasses? 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) CBC W/DIFF AUTOMATED Routine 08/20/2022 11:10 AM HEATING AND VENTILATION ENGINEER Gangrene and necrosis of lung ([facility]/HCC HHS/HCC) documented in this encounter Results * (ABNORMAL) CBC W/DIFF AUTOMATED (08/20/2022 11:10 AM HEATING AND VENTILATION ENGINEER) WBC 4.8 4.0 - 10.8 x10'3/uL 08/20/2022 12:30 PM HEATING AND VENTILATION ENGINEER [facility] RBC 3.39(L) 4.50 - 6.10 x10'6/uL 08/20/2022 12:30 PM HEATING AND VENTILATION ENGINEER [facility] HGB 10.7(L) 13.0 - 18.0 G/DL 08/20/2022 12:30 PM HEATING AND VENTILATION ENGINEER [facility] HCT 35.1(L) 37.0 - 52.0 % 08/20/2022 12:30 PM HEATING AND VENTILATION ENGINEER [facility] MCV 103.5(H) 78.0 - 100.0 FL 08/20/2022 12:30 PM HEATING AND VENTILATION ENGINEER [facility] MCH 31.6(H) 27.0 - 31.0 PG 08/20/2022 12:30 PM HEATING AND VENTILATION ENGINEER [facility] MCHC 30.5(L) 33.0 - 36.0 G/DL 08/20/2022 12:30 PM HEATING AND VENTILATION ENGINEER [facility] RDW 14.9(H) 11.5 - 14.5 % 08/20/2022 12:30 PM HEATING AND VENTILATION ENGINEER [facility] PLT 324 150 - 350 x10'3/uL 08/20/2022 12:30 PM HEATING AND VENTILATION ENGINEER [facility] MPV 9.9 7.4 - 10.4 FL 08/20/2022 12:30 PM HEATING AND VENTILATION ENGINEER [facility] CBC COMMENT NORMAL REFERENCE RANGE NOT ESTABLISHED FOR THE PROPORTIONAL LEUKOCYTE DIFFERENTIAL. 08/20/2022 12:30 PM HEATING AND VENTILATION ENGINEER [facility] NEUTROPHILS % 56.0 % 08/20/2022 12:30 PM HEATING AND VENTILATION ENGINEER [facility] LYMPHOCYTES % 27.2 % 08/20/2022 12:30 PM HEATING AND VENTILATION ENGINEER [facility] MONOCYTES % 12.7 % 08/20/2022 12:30 PM HEATING AND VENTILATION ENGINEER [facility] EOSINOPHILS % 2.9 % 08/20/2022 12:30 PM HEATING AND VENTILATION ENGINEER [facility] BASOPHILS % 0.8 % 08/20/2022 12:30 PM HEATING AND VENTILATION ENGINEER [facility] IMMATURE GRANS % 0.4 % 08/20/20 12:30 PM HEATING AND VENTILATION ENGINEER [facility] NRBC 0.0 % 08/20/2022 12:30 PM HEATING AND VENTILATION ENGINEER [facility] ABS. NEUTROPHILS 2.69 1.60 - 8.30 x10'3/uL 08/20/2022 12:30 PM HEATING AND VENTILATION ENGINEER [facility] ABS. LYMPHOCYTES 1.31 0.80 - 4.70 x10'3/uL 08/20/2022 12:30 PM HEATING AND VENTILATION ENGINEER [facility] ABS. MONOCYTES 0.61 0.00 - 1.50 x10'3/uL 08/20/2022 12:30 PM HEATING AND VENTILATION ENGINEER [facility] ABS. EOSINOPHILS 0.14 0.00 - 0.40 x10'3/uL 08/20/2022 12:30 PM HEATING AND VENTILATION ENGINEER [facility] ABS. BASOPHILS 0.04 0.00 - 0.20 x10'3/uL 08/20/2022 12:30 PM HEATING AND VENTILATION ENGINEER [facility] ABS. IMMATURE GRANULOCYTES 0.02 0.00 - 0.03 x10'3/uL 08/20/2022 12:30 PM HEATING AND VENTILATION ENGINEER [facility] ABS. NUCLEATED RBC'S 0.00 0.00 x10'3/uL 08/20/2022 12:30 PM [facility] 08/20/2022 11:1 0 AM HEATING AND VENTILATION ENGINEER Zoila Farias MD LABORATORY Final Result [facility] [address] [place] [address], * (ABNORMAL) COMPREHENSIVE METABOLIC PANEL (08/20/2022 11:10 AM HEATING AND VENTILATION ENGINEER) SODIUM S/P/B 141 136 - 145 MMOL/L 08/20/2022 12:47 PM [facility] POTASSIUM S/P/B 4.0 3.5 - 5.1 MMOL/L 08/20/2022 12:47 PM [facility] CHLORIDE S/P/B 104 98 - 107 MMOL/L 08/20/2022 12:47 PM [facility] CO2 29.8 21.0 - 32.0 MMOL/L 08/20/2022 12:47 PM [facility] GLUCOSE 84 70 - 99 MG/DL 08/20/2022 12:47 PM [facility] Comment: FASTING GLUCOSE 100 TO 125 MG/DL IS CONSISTENT WITH IMPAIRED FASTING GLUCOSE. FASTING GLUCOSE >125 MG/DL IS CONSISTENT WITH DIABETES. RANDOM GLUCOSE >200 MG/DL WITH HYPERGLYCEMIC SYMPTOMS IS CONSISTENT WITH DIABETES. PER ADA GUIDELINES BUN 9 6 - 24 MG/DL 08/20/2022 12:47 PM [facility] CREATININE S/P/B 0.82 0.70 - 1.30 MG/DL 08/20/2022 12:47 PM [facility] CALCIUM S/P/B 8.5 8.4 - 10.5 MG/DL 08/20/2022 12:47 PM [facility] BILIRUBIN TOTAL S/P/B 0.1(L) 0.2 - 1.0 MG/DL 08/20/2022 12:47 PM [facility] Comment: THIS ASSAY IS NOT RECOMMENDED FOR PATIENTS UNDERGOING TREATMENT WITH ELTROMBOPAG DUE TO THE POTENTIAL FOR FALSELY ELEVATED RESULTS. ALKALINE PHOSPHATASE S/P/B 68 45 - 115 U/L 08/20/2022 12:47 PM [facility] AST 26 15 - 37 U/L 08/20/2022 12:47 PM [facility] ALT 19 16 - 63 U/L 08/20/2022 12:47 PM [facility] TOTAL PROTEIN S/P/B 6.5 6.4 - 8.2 G/DL 08/20/2022 12:47 PM [facility] ALBUMIN S/P/B 2.6(L) 3.4 - 5.0 G/DL 08/20/2022 12:47 PM [facility] ANION GAP 7.2 5.0 - 15.0 MMOL/L 08/20/2022 12:47 PM [facility] OSMOLALITY (CALC) 290 MOSM/KG 022 12:47 PM [facility] Comment:REFERENCE RANGE NOT ESTABLISHED GFR ESTIMATE >90 >89 ML/MIN/1. 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
--- OUTSIDE RECORDS SUMMARY | 2024-08-20 14:25 | XMS_ITS | Encounter Summary ---
Author Organization [facility] Address [address] [place] [address]. [place] [address] [place] [address] Care Team Providers Care Clinical Program Consultant Name Role Phone Mark Carmichael DO Primary Care Provider [phone] Reason for Visit * Auth/Cert (Routine) Specialty Diagnoses / Procedures Referred By Amanda espinoza Referred To Contact Home Health Services Referral ID Status Reason Start Date Expiration Date Visits Re quested Visits Authorized [id number] 1 1 Encounter Details Date Type Department Care Team ([facility] st Contact Info) Description 08/14/2022 Home Care Visit [facility] Home Care [facility] [address] [place] [address] Elvi Benitez, RN CASE COMMUNICATION Social History [...] Coronavirus/COVID-19? No / Unsure 08/03/2022 2:21 AM FLAVOR TANK TENDER documented as of this encounter Functional Status * RETIRED Are you deaf or do you have serious difficulty hearing Answer Date of Assessment Author Status No 07/25/2022 11:00 PM FLAVOR TANK TENDER Acti ve * RETIRED Are you blind or do you have serious difficulty seeing, even when wearing glasses? Answer Date of Assessment Author Status No 07/25/2022 11:00 PM FLAVOR TANK TENDER Acti ve * Do you have serious difficulty walking or climbing stairs? Answer Date of Assessment Author Status No 07/25/2022 11:00 PM FLAVOR TANK TENDER Katie Vega ma, RN Active * Do you have difficulty dressing or bathing? Answer Date of Assessment Author Status No 07/25/2022 11:00 PM FLAVOR TANK TENDER Katie Vega ma, RN Active * Because of a physical, mental, or emotional condition, do you have difficulty doing errands alone such as visiting a doctor's office or shopping? Answer Date of Assessment Author Status No 07/25/2022 11:00 PM FLAVOR TANK TENDER Katie Vega ma, RN Active documented as [...] and discharge planning Lifestyle No Angela Dawkins, BARTACKER documented as of this encounter Visit Diagnoses Not on filedocumented in this encounter Care Teams Clinical Program Consultant Relationship Specialty Start Date End Date Mark Carmichael DO [address] [place] [address] PCP - General FAMILY PRACTICE 07/22/22 documented as of this encounter
--- OUTSIDE RECORDS SUMMARY | 2024-08-20 14:25 | XMS_ITS | Encounter Summary ---
Author Organization [facility] Address [address] [place] [address]. [place] [address] [place] [address] Care Team Providers Care Hotel Front Desk Clerk Name Role Phone Mark Carmichael DO Primary Care Provider [phone] Encounter Details Date Type Department Care Team (Latest Contact Info) Description 10/03/2022 3:05 PM REAL ESTATE MANAGER Hospital Encounter [facility] [address] [facility] [place] [address] Yazan West MD [address] [place] [address] Discharge Disposition: Home or Self [...] Coronavirus/COVID-19? No / Unsure 10/03/2022 3:02 PM REAL ESTATE MANAGER documented as of this encounter Functional Status * RETIRED Are you deaf or do you have serious difficulty hearing Answer Date of Assessment Author Status No 07/25/2022 11:00 PM REAL ESTATE MANAGER Acti ve * RETIRED Are you blind or do you have serious difficulty seeing, even when wearing glasses? Answer Date of Assessment Author Status No 07/25/2022 11:00 PM REAL ESTATE MANAGER Acti ve * Do you have [...] and discharge planning Lifestyle No Angela Dawkins, CARGO AND CONTAINER INSPECTOR documented as of this encounter Procedures Procedure Name Priority Date/Time Associated Diagnosis Comments XR CHEST PA+LAT Routine 10/03/2022 3:27 PM REAL ESTATE MANAGER Diarrhea Pneumonia documented in this encounter Results * XR CHEST PA+LAT (10/03/2022 3:27 PM REAL ESTATE MANAGER) Anatomical Region Laterality Modality Chest Radiographic Jasmina ging 10/03/2022 4:49 PM REAL ESTATE MANAGER Impressions 10/03/2022 4:52 PM REAL ESTATE MANAGER IMPRESSION: 1. ??Mild perihilar bronchial wall thickening, which may represent reactive airway disease or small airway infection/inflammation. 2. ??Interval resolution of the previously identified right pleural effusion. 3. ??No focal consolidation or pneumothorax. Ordered By: YAZAN WEST Interpreted By: Reji Cantrell MD, 10/03/2022 4:49 PM Narrative 10/03/2022 4:52 PM REAL ESTATE MANAGER PROCEDURE: ??XR CHEST PA+LAT. ??10/03/2022 3:27 PM. [...] unspecified documented in this encounter Care Teams Hotel Front Desk Clerk Relationship Specialty Start Date End Date Mark Carmichael DO [address] [place] [address] PCP - General FAMILY PRACTICE 07/22/22 documented as of this encounter
--- OUTSIDE RECORDS SUMMARY | 2024-08-20 14:25 | XMS_ITS | Encounter Summary ---
Author Organization [facility] Address [facility] [place] [address] [place] [address] Care Team Providers Care Intake Clerk Name Role Phone Mark Carmichael DO Primary Care Provider [phone] Encounter Details Date Type Department Care Team (Late st Contact Info) Description 04/04/2023 Transcribe Orders [facility] Access Team [address] [place] [address] Patti Pineda MD [address] [place] [address] Social History Tobacco Use Types [...] Assessment Author Status No 07/25/2022 11:00 PM REFUND SPECIALIST Acti ve * RETIRED Are you blind or do you have serious difficulty seeing, even when wearing glasses? Answer Date of Assessment Author Status No 07/25/2022 11:00 PM REFUND SPECIALIST Acti ve * Do you have [...] and discharge planning Lifestyle No Angela Dawkins, PRINT LINE SUPERVISOR documented as of this encounter Visit Diagnoses Diagnosis COPD (chronic obstructive pulmonary disease) (CMS/HCC [facility])- Primary Chronic airway obstruction, not elsewhere classified documented in this encounter Care Teams Intake Clerk Relationship Specialty Start Date End Date Mark Carmichael DO [address] [place] [address] PCP - General FAMILY PRACTICE 07/22/22 documented as of this encounter
--- OUTSIDE RECORDS SUMMARY | 2024-08-20 14:25 | XMS_ITS | Encounter Summary ---
Author Organization [facility] Address [address] [place] [address]. [place] [address] [place] [address] Care Team Providers Care Accounts Receivable Processor Name Role Phone Mark Carmichael DO Primary Care Provider Reason for Visit * Auth/Cert (Routine) Specialty Diagnoses / Procedures Referred By Amanda espinoza Referred To Contact Home Health Services Referral ID Status Reason Start Date Expiration Date Visits Re quested Visits Authorized [id number] 1 1 Encounter Details Date Type Department Care Team (Late st Contact Info) Description 08/27/2022 1:00 PM AREA DEVELOPMENT CONSULTANT Home Care Visit [facility] Home [facility] [address] [place] [address] Conchita Cazares, RN [address] [place] [address] SN HOME VISIT Social History Tobacco Use [...] Coronavirus/COVID-19? No / Unsure 08/03/2022 2:21 AM AREA DEVELOPMENT CONSULTANT documented as of this encounter Last Filed Vital Signs Vital Sign Reading Time Taken Comments Blood Pressure 162/92 08/27/2022 12:55 PM AREA DEVELOPMENT CONSULTANT Pulse 64 08/27/2022 12:55 PM AREA DEVELOPMENT CONSULTANT Temperature 36.2 ??C (97.2 ??F) 08/27/2022 12:[address] Respiratory Rate 22 08/27/2022 12:55 PM AREA DEVELOPMENT CONSULTANT Oxygen Saturation 97% 08/27/2022 12:55 PM AREA DEVELOPMENT CONSULTANT Inhaled Oxygen Concentration - - Weight - - Height - - Body Mass Index - - documented in this encounter Functional Status * RETIRED Are you deaf or do you have serious difficulty hearing Answer Date of Assessment Author Status No 07/25/2022 11:00 PM AREA DEVELOPMENT CONSULTANT Acti ve * RETIRED Are you blind or do you have serious difficulty seeing, even when wearing glasses? Answer Date of Assessment Author Status No 07/25/2022 11:00 PM AREA DEVELOPMENT CONSULTANT Acti ve * Do you have serious difficulty walking or climbing stairs? Answer Date of Assessment Author Status No 07/25/2022 11:00 PM AREA DEVELOPMENT CONSULTANT Katie Vega ma, RN Active * Do you have difficulty dressing or bathing? Answer Date of Assessment Author Status No 07/25/2022 11:00 PM AREA DEVELOPMENT CONSULTANT Katie Vega ma RN Active * Because of a physical, mental, or emotional condition, do you have difficulty doing errands alone such as visiting a doctor's office or shopping? Answer Date of Assessment Author Status No 07/25/2022 11:00 PM AREA DEVELOPMENT CONSULTANT Katie Vega ma RN Active documented as of this encounter Mental Status * Because of a physical, mental, or emotional condition, do you have serious difficulty concentrating, remembering, or making decisions? Answer Entry Date Author Status No 07/25/2022 11:00 PM AREA DEVELOPMENT CONSULTANT Katie Vega ma RN Active documented in this encounter Plan of Treatment Not on file documented as of this encounter Goals Goal Patient Goal Type Associated Problems Recent Progress Patient-Stated? Author Family - family caregiver with be involved in care transitions and discharge planning Lifestyle Angela Pena, NEPHROLOGY NURSE documented as of this encounter Visit Diagnoses Not on filedocumented in this encounter Home Health Visit - Care Plan Visit Details Visit Type -SN - Home Visit Discipline -Prison Problems Problem Description Start Date Status Goals [...] to [facility]. Zoila Farias [phone] and Option Care: . Problem:Learning/Tea daniel Needs - IV Therapy Goal:Patient/caregiv er demonstrates ability to safely perform and/or administer IV flush Completed Obtained from right antecubital vein per venipunctuer with 23 g needle on 2nd attempts, CBC, CMP obtained, pressure held to site for 3 minutes, bandaid applieed Patient tolerated good. Specimen taken to [facility] lab IV Administration Description: Skilled nurse, Patient [...] 08/13/22. results to Dr. Austen Carmichael fax: [phone] Problem:Learning/Tea daniel Needs - IV Therapy Completed [...] support systems and coping. - Refer to DRYER AND WASHER MECHANIC as needed. - Notify physician as needed. [...] Completed documented in this encounter Care Teams Accounts Receivable Processor Relationship Specialty Start Date End Date Mark Carmichael DO [address] [place] [address] PCP - General FAMILY PRACTICE 07/22/22 documented as of this encounter
--- OUTSIDE RECORDS SUMMARY | 2024-08-20 14:25 | XMS_ITS | Encounter Summary ---
Author Organization [facility] Address [address] [place] [address]. [place] [address] [place] [address] Care Team Providers Care Finance Business Partner Name Role Phone Mark Carmichael DO Primary Care Provider Encounter Details Date Type Department Care Team (Latest Contact Info) Description 08/27/2022 2:30 PM DAIRY TESTER - 08/27/2022 11:59 PM DAIRY TESTER Hospital Encounter [place] [id number] [facility] [place] [address] Zoila Farias MD [address] [place] [address] Discharge Disposition: Home or Self Care (Routine [...] Coronavirus/COVID-19? No / Unsure 08/03/2022 2:21 AM DAIRY TESTER documented as of this encounter Functional Status * RETIRED Are you deaf or do you have serious difficulty hearing Answer Date of Assessment Author Status No 07/25/2022 11:00 PM DAIRY TESTER Acti ve * RETIRED Are you blind or do you have serious difficulty seeing, even when wearing glasses? 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) documented in this encounter Results * (ABNORMAL) CBC W/DIFF AUTOMATED (08/27/2022 1:45 PM DAIRY TESTER) WBC 3.92(L) 4.00 - 10.80 x10'3/uL 08/27/2022 2:39 PM DAIRY TESTER [facility] RBC 3.96(L) 4.50 - 6.10 x10'6/uL 08/27/2022 2:39 PM DAIRY TESTER [facility] HGB 12.1(L) 13.0 - 18.0 G/DL 08/27/2022 2:39 PM DAIRY TESTER [facility] HCT 39.7 37.0 - 52.0 % 08/27/2022 2:39 PM [facility] MCV 100.3(H) 78.0 - 100.0 FL 08/27/2022 2:39 PM DAIRY TESTER [facility] MCH 30.6 27.0 - 31.0 PG 08/27/2022 2:39 PM DAIRY TESTER [facility] MCHC 30.5(L) 33.0 - 36.0 G/DL 08/27/2022 2:39 PM [facility] RDW 14.2 11.5 - 14.5 % 08/27/2022 2:39 PM DAIRY TESTER [facility] PLT 206 150 - 350 x10'3/uL 08/27/2022 2:39 PM [facility] MPV 10.1 7.4 - 10.4 FL 08/27/2022 2:39 PM DAIRY TESTER [facility] CBC COMMENT NORMAL REFERENCE RANGE NOT ESTABLISHED FOR THE PROPORTIONAL LEUKOCYTE DIFFERENTIAL. 08/27/2022 2:39 PM DAIRY TESTER [facility] NEUTROPHILS % 52.6 % 08/27/2022 2:39 PM [facility] LYMPHOCYTES % 34.4 % 08/27/2022 2:39 PM [facility] MONOCYTES % 9.4 % 08/27/2022 2:39 PM [facility] EOSINOPHILS % 2.3 % 08/27/2022 2:39 PM [facility] BASOPHILS % 1.0 % 08/27/2022 2:39 PM [facility] IMMATURE GRANS % 0.3 % 08/27/20 2:39 PM [facility] NRBC 0.0 % 08/27/2022 2:39 PM [facility] ABS. NEUTROPHILS 2.06 1.60 - 8.30 x10'3/uL 08/27/2022 2:39 PM [facility] ABS. LYMPHOCYTES 1.35 0.80 - 4.70 x10'3/uL 08/27/2022 2:39 PM [facility] ABS. MONOCYTES 0.37 0.00 - 1.50 x10'3/uL 08/27/2022 2:39 PM [facility] ABS. EOSINOPHILS 0.09 0.00 - 0.40 x10'3/uL 08/27/2022 2:39 PM [facility] ABS. BASOPHILS 0.04 0.00 - 0.20 x10'3/uL 08/27/2022 2:39 PM [facility] ABS. IMMATURE GRANULOCYTES 0.01 0.00 - 0.03 x10'3/uL 08/27/2022 2:39 PM DAIRY TESTER [facility] ABS. NUCLEATED RBC'S 0.00 0.00 x10'3/uL 08/27/2022 2:39 PM [facility] 08/27/2022 1:45 PM DAIRY TESTER Zoila Farias MD LABORATORY Final Result [facility] [address] [place] [address], * (ABNORMAL) COMPREHENSIVE METABOLIC PANEL (08/27/2022 1:45 PM DAIRY TESTER) SODIUM S/P/B 141 136 - 145 MMOL/L 08/27/2022 3:01 PM [facility] POTASSIUM S/P/B 3.1(L) 3.5 - 5.1 MMOL/L 08/27/2022 3:01 PM [facility] CHLORIDE S/P/B 104 98 - 107 MMOL/L 08/27/2022 3:01 PM [facility] CO2 32.8(H) 21.0 - 32.0 MMOL/L 08/27/2022 3:01 PM [facility] GLUCOSE 120(H) 70 - 99 MG/DL 08/27/2022 3:01 PM [facility] Comment: FASTING GLUCOSE 100 TO 125 MG/DL IS CONSISTENT WITH IMPAIRED FASTING GLUCOSE. FASTING GLUCOSE >125 MG/DL IS CONSISTENT WITH DIABETES. RANDOM GLUCOSE >200 MG/DL WITH HYPERGLYCEMIC SYMPTOMS IS CONSISTENT WITH DIABETES. PER ADA GUIDELINES BUN 5(L) 6 - 24 MG/DL 08/27/2022 3:01 PM [facility] CREATININE S/P/B 0.90 0.70 - 1.30 MG/DL 08/27/2022 3:01 PM [facility] CALCIUM S/P/B 8.8 8.4 - 10.5 MG/DL 08/27/2022 3:01 PM [facility] BILIRUBIN TOTAL S/P/B 0.3 0.2 - 1.0 MG/DL 08/27/2022 3:01 PM [facility] Comment: THIS ASSAY IS NOT RECOMMENDED FOR PATIENTS UNDERGOING TREATMENT WITH ELTROMBOPAG DUE TO THE POTENTIAL FOR FALSELY ELEVATED RESULTS. ALKALINE PHOSPHATASE S/P/B 63 45 - 115 U/L 08/27/2022 3:01 PM [facility] AST 22 15 - 37 U/L 08/27/2022 3:01 PM [facility] ALT 16 16 - 63 U/L 08/27/2022 3:01 PM [facility] TOTAL PROTEIN S/P/B 7.0 6.4 - 8.2 G/DL 08/27/2022 3:01 PM [facility] ALBUMIN S/P/B 2.9(L) 3.4 - 5.0 G/DL 08/27/2022 3:01 PM [facility] ANION GAP 4.2(L) 5.0 - 15.0 MMOL/L 08/27/2022 3:01 PM [facility] OSMOLALITY (CALC) 290 MOSM/KG 022 3:01 PM [facility] Comment:REFERENCE RANGE NOT ESTABLISHED GFR ESTIMATE >90 >89 ML/MIN/1. 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
--- OUTSIDE RECORDS SUMMARY | 2024-08-20 14:25 | XMS_ITS | Encounter Summary ---
Author Organization [facility] Health Address [address] [place] [place] [address] Care Team Providers Care Manager Financial Systems Name Role Phone Mark Carmichael DO Primary Care Provider [phone] Reason for Referral * Evaluate & Treat (Routine) - Open Specialty Diagnoses / Procedures Referred By Contac t Referred To Contact Gastroenterology Diagnoses Gastroesophageal reflux disease with esophagitis without hemorrhage Common bile duct dilatation Oscar Zendejas MD [address] [place] [address] [facility] [address] [facility], [place] [address] Referral ID Status Reason Start Date Expiration Date V isits Requested Visits Authorized [id number] Open Specialty Services Required 08/19/2024 08/19/2025 1 1 CREAM MACHINE OPERATOR Reason for Visit * Reason Comments Fall Pt BIB EMS from OSH following fall down 10 steps yesterday 08/15, OSH concern neurogenic shock * Auth/Cert (Routine) Specialty Diagnoses / Procedures Referred By Contac t Referred To Contact Diagnoses Fall Referral ID Status Reason Start Date Expiration Date Visits Re quested Visits Authorized [id number] 1 1 Encounter Details Date Type Department Care Team (Late st Contact Info) Description 08/16/2024 5:26 AM 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 - 08/20/2024 11:57 AM 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 Hospital Encounter [facility] ACUTE [address] [place] [address] Chet Henning MD [address] DIV [place] [address] Francesco Malik MD [address] [place] [address] Cresencio Gonzalez MD [address] [place] [address] Can Woo MD [address] DIV OF PULMONARY/[place] [address] Cresencio Berry MD [address] DIV OF PULMONARY/[place] [address] Oscar Zendejas MD [address] [place] [address] Emergency Medicine Discharge Disposition: Home or Self Care Social History Tobacco Use Types Packs/Day [...] and heating? Not hard at all 08/20/2024 [facility]ie of Occupat ional Health - Occupational Stress [...] any time in the past 12 m [facility], were you homeless or living in a senior living (including now)? No 08/20/2024 Sex and Gender Information Value Date Recorded Sex Assigned at Not on file Gender Identity Not on file Sexual Orientation Not on file documented as of this encounter Last Filed Vital Signs Vital Sign Reading Time Taken Comments Blood Pressure 164/85 08/20/2024 11:05 AM 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 Pulse 60 08/20/2024 11:05 AM 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 Temperature 36.8 ??C (98.3 ??F) 08/20/2024 11:[address] Respiratory Rate 20 08/20/2024 11:05 AM 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 Oxygen Saturation 97% 08/20/2024 11:05 AM 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 Inhaled Oxygen Concentration - - Weight 74.5 kg (164 lb 3.2 oz) 08/18/2024 4:00 A M 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 Height 182.9 cm (6') 08/16/2024 5:26 AM 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 Body Mass Index 22.27 08/16/2024 5:26 AM 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 documented in this encounter Functional Status Functional Status Response Date of [...] person have difficulty concentrating/remembering/making decisions? No 08/19/2024 documented as of this encounter Discharge Instructions * Discharge Instructions* Britton Trujillo MD - 08/19/2024 4:28 PM 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 A Note From Your Doctors: Dear Mr Ashley, You were admitted to the hospital after falling down stairs. While you did not fracture any bones from the fall, your blood pressure was dangerously low, requiring support from pressor medications inthe ICU. You were also found to have aspiration pneumonia, an infection of your lungs. You were treated with antibiotics for pneumonia. A scan of your abdomen also found some dilation of duct (commonbile duct) in your liver. The GI doctor did an ultrasound of your liver and pancreas, and did not find any concerning changes. Please take all your medications as instructed below. Please follow up with your primary care doctor in 1 week and GI doctor in 6 months. Please notify your doctor if you develop new or concerning symptoms including but not limited to fever, headache, chest pain, shortness of breath, abdominal pain, nausea/vomiting. If you are unable to reach your primary provider, please go to the nearest emergency room or call EMS ([phone]). MEDICATIONS: A number of changes have been made to your medications as detailed below: Medication List CONTINUE taking these medications acetaminophen-codeine 300-60 MG tablet Commonly known as: Tylenol #4 cyclobenzaprine 10 MG tablet Commonly known as: Flexeril DULoxetine 60 MG capsule Commonly known as: Cymbalta FLUoxetine 20 MG capsule Commonly known as: PROzac gabapentin 300 MG capsule Commonly known as: Neurontin levothyroxine 50 MCG tablet Commonly known as: Synthroid lisinopril 20 MG tablet Commonly known as: Prinivil; Zestril morphine IR 30 MG tablet Commonly known as: MSIR pantoprazole EC 40 MG tablet Commonly known as: Protonix traZODone 100 MG tablet Commonly known as: Desyrel If you have any questions about your medications, please be sure to ask the pharmacy when you filler picker your prescription. You may also call your primary provider to ask if you should be taking your medication. FOLLOW-UP: It is important that you follow-up with all appointments that have been made on your behalf. These appointments include: Future Appointments Sunday January 19, 2025 11:00 AM Appointment with Raymond Miller at [facility] ([phone]) [address] [facility] [address] As directed Outpatient Referral: Ref to GI Gastroenterology - [facility] If a follow-up with your primary care provider has not been scheduled, please schedule an appointment to follow-up on your hospitalization. If there is a conflict, please call the clinic ahead of time and reschedule the appointment. RegardsCarlos MD Internal Medicine Resident, PGY I Internal Medicine Department [facility] CREAM MACHINE OPERATOR documented in this encounter Medications at Time of Discharge Medication Sig Dispensed Refills Start Date End Date acetaminophen-codeine (Tylenol #4) 300-60 MG tablet Take 1 (one) tablet by mouth every 6 hours as needed for Pain 08/08/2024 cyclobenzaprine (Flexeril) 10 MG tablet Take 1 (one) tablet by mouth 2 times daily as needed DULoxetine (Cymbalta) 60 MG capsule Take 1 (one) capsule by mouth once daily 08/04/2024 FLUoxetine (PROzac) 20 MG capsule Take 3 (three) capsules by mouth once daily 12/21/2023 gabapentin (Neurontin) 300 MG capsule Take 1 (one) capsule by mouth 2 times daily levothyroxine (Synthroid) 50 MCG tablet Take 1 (one) tablet by mouth once daily 08/04/2024 lisinopril (Prinivil; Zestril) 20 MG tablet Take 1 (one) tablet by mouth once daily 08/06/2024 morphine IR (MSIR) 30 MG tablet Take 1 (one) tablet by mouth 3 times daily as needed 08/08/2024 pantoprazole EC (Protonix) 40 MG tablet Take 1 (one) tablet by mouth every morning 03/27/2024 traZODone (Desyrel) 100 MG tablet Take 1 (one) tablet by mouth once documented as of this encounter Progress Notes * Glenna Smith RN - 08/20/2024 11:55 AM CST Problem: Pain/Discomfort Goal: Patient exhibits reduced pain/discomfort as evidenced by pain scores Outcome: Progressing Goal: Patient uses pharmacological and non-pharmacological pain management strategies. Outcome: Progressing Goal: Patient verbalizes acceptable level of pain relief and ability to engage in desired activity. Outcome: Progressing Problem: Fall Risk Goal: Fall risk and fall related injury risk are minimized (interventions related to the fall risk can be found in the flowsheet documentation) Outcome: Progressing Problem: Balance Goal: LTG - Patient will demonstrate Intervention to enhance balance for safe completion of daily activities Outcome: Progressing Problem: Mobility Goal: LTG - Patient will ambulate community distance Outcome: Progressing R * Oliva Morejon RN - 08/20/2024 3:56 AM CST Problem: Pain/Discomfort Goal: Patient exhibits reduced pain/discomfort as evidenced by pain scores Outcome: Progressing Goal: Patient uses pharmacological and non-pharmacological pain management strategies. Outcome: Progressing Goal: Patient verbalizes acceptable level of pain relief and ability to engage in desired activity. Outcome: Progressing Problem: Fall Risk Goal: Fall risk and fall related injury risk are minimized (interventions related to the fall risk can be found in the flowsheet documentation) Outcome: Progressing Problem: Balance Goal: LTG - Patient will demonstrate Intervention to enhance balance for safe completion of daily activities Outcome: Progressing Problem: Mobility Goal: LTG - Patient will ambulate community distance Outcome: Progressing CREAM MACHINE OPERATOR * Britton Trujillo MD - 08/19/2024 1:46 PM CST [facility] INTERNAL MEDICINE PROGRESS NOTE Patient: Ray Ashley Sex: male Age: [age] year old Date of : 1955 Date of Admission: 08/16/2024 Date: 08/19/2024 LOS: 3 SUBJECTIVE Interval History: - No acute event overnight - VSS; Denies chest pain, SOB, abdominal pain - EUS showed dilated common bile duct with no stones or obstruction Hospital Course: Ray Ashely is a 69 year old male with a history of HTN, COPD, Hypothyroidism, L3-4 PSF s/p laminectomy in 1996 who was transferred to [facility] on 08/16 for undifferentiated shock after initially presenting to OSH after a ground level fall. Upon arrival, he was hypotensive to 65/40 requiring pressor support. Labs were notable for Cr 5.74, BUN 54, CK 5864. ABG showed pH 7.29, pO2 61. CT head showed no acute findings and CT Spine showed chronic L3 compression fracture. Neurosurgery was consulted and cleared the patient for C collar removal. CT C/A/P showed LLL consolidation and fluid in right main bronchus concerning for aspiration, as well as a dilated common bile duct with intrahepatic biliary di latation. The patient was initially admitted to MICU for pressor support. He was weaned off pressors on 08/17 and transferred to medicine floor for further management. Biliary service was consulted for dilated CBD on CT C/A/P and EUS showed dilated common bile duct with no stones or obstruction. OBJECTIVE Vital Signs: Vitals: 08/19/24 1101 08/19/24 1224 08/19/24 1230 08/19/24 1329 BP: 164/87 115/80 130/93 163/93 Pulse: 69 81 90 66 Resp: 18 Temp: 98.1 ??F (36.7 ??C) SpO2: (!) 84% 100% 100% 95% Weight: Height: Temp Min: 97.6 ??F (36.4 ??C) Max: 99.9 ??F (37.7 ??C), Pulse Min: 62 Max: 98, Resp Min: 3 Max: 33,BP Min: 65/40 Max: 168/84 Intake & Output: In: 1080 [P.O.:1080] Out: 950 [Urine:950] Physical Exam Constitutional: General: He is not in acute distress. Cardiovascular: Rate and Rhythm: Normal rate and regular rhythm. Heart sounds: Normal heart sounds. Pulmonary: Effort: Pulmonary effort is normal. No respiratory distress. Breath sounds: Normal breath sounds. Abdominal: General: Abdomen is flat. There is no distension. Palpations: Abdomen is soft. Tenderness: There is no abdominal tenderness. Skin: General: Skin is warm. Neurological: General: No focal deficit present. Mental Status: He is alert. Mental status is at baseline. Current Medications: Scheduled: 0.9% NaCl 3 mL Intracatheter q8h azithromycin 500 mg Oral QDAY cefTRIAXone 2 g Intravenous q24h DULoxetine 60 mg Oral QDAY gabapentin 300 mg Oral BID heparin 5,000 Units Subcutaneous TID levothyroxine 50 mcg Oral QDAY BEFORE BREAKFAST lisinopril 20 mg Oral QDAY pantoprazole EC 40 mg Oral QAM potassium - sodium phosphates 1 packet Oral TID WC potassium chloride 40 mEq Intravenous Once senna 8.6 mg Oral QDAY traZODone 100 mg Oral AT BEDTIME Continuous: PRN: SALINE LOCK, INSERT AND MAINTAIN AND 0.9% NaCl AND 0.9% NaCl albuterol-ipratropium [Held by Provider] cyclobenzaprine dextrose IV for hypoglycemia OR dextrose IV for hypoglycemia OR glucagon glucose (Diabetic Use) gel HYDROcodone-acetaminophen lidocaine [Held by Provider] morphine IR Significant Lab Results: Recent Labs Component Name 08/19/24 0743 08/18/24 0640 08/17/24 0513 WBC 3.1* 3.8* 5.8 HGB 11.3* 11.5* 12.0* HCT 32.6* 33.2* 35.3* PLTCOUNT 125* 108* 118* Recent Labs Component Name 08/19/24 0743 08/18/24 0640 08/17/24 0513 POTASSIUM 3.3* 4.0 4.3 CO2 24 23 24 BUN 16 24 36* CREATININE 0.83 0.82 1.50* EGFR >90 >90 51* GLUCOSE 88 97 103* CALCIUM 8.1* 7.9* 7.8* Microbiology: Microbiology Results (Displays last 21 days for this encounter ONLY) Procedure Component Value - Date/Time CULTURE BLOOD [[id number]] (Normal) Collected: 08/16/242032 Lab Status: Preliminary result Specimen: Blood Peripheral Updated: 08/18/242300 Culture No growth CULTURE BLOOD [[id number]] (Normal) Collected: 08/16/242014 Lab Status: Preliminary result Specimen: Blood Peripheral Updated: 08/18/242300 Culture No growth CULTURE URINE [[id number]] (Normal) Collected: 08/16/241945 Lab Status: Final result Specimen: Urine Clean Catch Updated: 08/18/24 0006 Culture Urine No growth (<100 CFU/mL) CULTURE SPUTUM+GRAM STAIN [[id number]] Lab Status: No result Specimen: Microbiology from Sputum Imaging & Studies: CT Angio Lower Extremity Left Result Date: 08/16/2024 IMPRESSION: Three-vessel runoff of bilateral lower extremity arteries to the level of ankle. Of note, the dorsalis pedis and tibialis posterior arteries are diminutive bilaterally likely secondary todiffuse spasm but patent without evidence of contrast extravasation to suggest arterial injury or active bleeding. > Dictated by Felix Awad MD (administrative resident). Viviana Brizuela MD havepersonally reviewed and interpreted this examination/study. > Interpreting Provider: Viviana Rain MD on 08/16/2024 5:[address] Angio Lower Extremity Right Result Date: 08/16/2024 IMPRESSION: Three-vessel runoff of bilateral lower extremity arteries to the level of ankle. Of note, the dorsalis pedis and tibialis posterior arteries are diminutive bilaterally likely secondary todiffuse spasm but patent without evidence of contrast extravasation to suggest arterial injury or active bleeding. > Dictated by Felix Awad MD (administrative resident). Viviana Brizuela MD havepersonally reviewed and interpreted this examination/study. > Interpreting Provider: Viviana Rain MD on 08/16/2024 5:[address] CHEST ABDOMEN PELVIS W CONT - Abdomen-pelvis trauma, blunt or penetrating Result Date: 08/16/2024 Impression 1. No acute visceral, vascular, or [...] gastroesophageal reflux/esophagitis. Report dictated by Bryon Watson MD(administrative resident). Viviana Brizuela MD have personally reviewed and interpreted this examination/study. > Interpreting Provider: Viviana Rain MD on 08/16/2024 5:01 PM XR PELVIS 1 OR 2VW Result Date: 08/16/2024 IMPRESSION: No acute displaced fracture or dislocation of pelvis is identified. Report dictated by Rafi Vicente MD (administrative resident). Mason Brizuela have personally reviewed and interpreted this examination/study. > Interpreting Provider: Mason Lucero on 08/16/2024 3:[address] HEAD WO CONTRAST - Head Trauma, CSF leak, mental status changes Result Date: 08/16/2024 IMPRESSION: 1.No acute intracranial hemorrhage, midline shift, [...] findings. Report dictated by Rafi Vicente MD (administrative resident). Ruby Brizuela MD have personally reviewed and interpreted this examination/study. > Interpreting Provider: Ruby Villanueva MD on 08/16/2024 10:[address] CERVICAL SPINE WO CONTRAST - C-Spine Trauma, Spine fracture Result Date: 08/16/2024 IMPRESSION: 1.No acute intracranial hemorrhage, midline shift, [...] findings. Report dictated by Rafi Vicente MD (administrative resident). Ruby Brizuela MD have personally reviewed and interpreted this examination/study. > Interpreting Provider: Ruby Villanueva MD on 08/16/2024 10:[address] THORACIC SPINE WO CONTRAST - T/L-spine trauma, spine fracture Result Date: 08/16/2024 IMPRESSION: 1.No acute intracranial hemorrhage, midline shift, [...] findings. Report dictated by Rafi Vicente MD (administrative resident). Ruby Brizuela MD have personally reviewed and interpreted this examination/study. > Interpreting Provider: Ruby Villanueva MD on 08/16/2024 10:[address] LUMBAR SPINE WO CONTRAST - T/L-spine trauma, Spine fracture Result Date: 08/16/2024 IMPRESSION: 1.No acute intracranial hemorrhage, midline shift, [...] findings. Report dictated by Rafi Vicente MD (administrative resident). Ruby Brizuela MD have personally reviewed and interpreted this examination/study. > Interpreting Provider: Ruby Villanueva MD on 08/16/2024 10:30 AM ASSESSMENT & PLAN Shock (HCC) (POA: Yes) Fall (on) (from) other stairs and steps, initial encounter (POA: Yes) Hiatal hernia (POA: Yes) Aspiration pneumonitis (HCC) (POA: Yes) Chronic back pain (POA: Yes) Hypothyroidism (POA: Yes) Rhabdomyolysis (POA: Yes) PRIYANKA (acute kidney injury) (HCC) (POA: Yes) Lactic acidosis (POA: Yes) Acute encephalopathy (POA: Yes) Common bile duct dilation (POA: Yes) COPD (chronic obstructive pulmonary disease) (HCC) (POA: Yes) Tobacco abuse (POA: Yes) History of lumbar laminectomy (POA: Yes) Leukocytosis (POA: Yes) GERD (gastroesophageal reflux disease) (POA: Yes) Ray Ashley is a 69 year old male with a history of HTN, COPD, Hypothyroidism, L3-4 PSF s/p laminectomy in 1996 who was transferred to [facility] on 08/16 for undifferentiated shock after initially presenting to OSH after a ground level fall, now being treated for aspiration pneumonia and PRIYANKA. # Aspiration Pneumonia - CT CAP showed LLL consolidation and fluid in right main bronchus concerning for aspiration - WBC 17.4 - 9.3 - 4.1 - 5.8 - Blood culture negative to date - Shock on admission; could be septic from aspiration pneumonia Plan: - Continue Ceftriaxone 2000 mg Qday for 5 days (Day 4/5) - Continue Azithromycin 500 mg Qday for 3 days (Day 2/3) - Obtain swallow function evaluation with speech therapy # Dilated Common Bile Duct # Poor PO intake - CT showed dilated common bile duct with intrahepatic bilary dilation - Reports poor PO intake for the past week or more - AST 53, ALT 39, Alk Phos 49, T Bili 0.4; no significant abnormalities overall - Biliary service consulted; EUS showed no ductal stones Plan: - Follow up with GI outpatient # PRIYANKA - Resolved - Cr 5.74 on admission; now 0.82 - Baseline Cr: Unclear; 1.14 this morning - Ddx: Hypovolemia vs Medication vs ATN vs Ischemia vs Post renal obstruction - s/p 2.5 L LR bolus Plan: - Avoid nephrotoxic medications - Continue to monitor # Syncope - Patient reports black out prior to ground level fall - No known history of cardiac disease or seizure disorder - Ddx includes orthostatic syncope in the setting of poor oral intake and hypovolemia vs vasovagal syncope vs cardiac syncope vs seizure disorder - TTE showed normal left ventricular systolic and diastolic functions and no valvular abnormalities; decreased right ventricular diastolic function and borderline pHTN noted. # Acute Encephalopathy - Resolved - Per chart review, patient appeared confused upon arrival - A&O x 4 now - Could be acute delirium from infection vs hypovolemia vs metabolic encephalopathy - Continue to monitor # Shock - Resolved - Hypotensive to 65/40 requiring pressor support; now weaned off - Ddx includes hypovolemic shock from dehydration and poor PO intake vs septic shock from aspiration pneumonia Plan: - Follow up with TTE - Hold home Lisinopril 20 mg Qday - Continue to monitor # HTN - Resume home Lisinopril 20 mg Qday # COPD - No PFT in chart - SpO2 100% on room air - Denies SOB - Continue Duo-neb Q4h PRN # Hypothyroidism - TSH 0.112; however unreliable in the setting of acute illiness - Continue home Levothyroxine 50 mcg Qday - Follow up with TSH level outpatient # Chronic lower back pain - History of L3-4 PSF s/p laminectomy in 1996 - Continue home Hydrocodone-Acetaminophen 10-325 mg Q6h PRN - Start PRN Lidocaine patch # Anxiety - Continue Duloxetine 60 mg Qday # Insomnia - Continue Trazodone 100 mg Qhs Daily Checklist VTE PPX [x] SCD [x] SQ Heparin [] SQ Lovenox [] Therapeutic Anticoagulation VTE Chemical Prophylaxis Orders (From admission, onward) Ordered Start Stop 08/16/24 1854 heparin injection 5,000 Units 5,000 Units, Subcutaneous, 3 TIMES DAILY 08/16/24 2100 -- VTE Mechanical Prophylaxis Orders (From admission, onward) Ordered Start 08/16/24 182 SEQUENTIAL COMPRESSION DEVICE (IMPLEMENT) CONTINUOUS Start Time: 08/16/241829 Order ID: [id number] Status: Sent 08/16/241829 Stress Ulcer PPX [] None [] Famotidine [x] PPI Fluids Electrolytes Nutrition [] None [x] IV maintenance fluids [] IV colloid infusions K~4.0 Mg~2.0 Phos~3.0 DIET REGULAR LDA Peripheral IV Anterior;Left Forearm (Active) Placement Date: 08/16/24 Size (Gauge): 20 G Orientation: Anterior;Left Location: Forearm Number of days: 1 Peripheral IV Left Antecubital (Active) Placement Date/Time: 08/16/24 0657 Size (Gauge): 20 G Orientation: Left Location: Antecubital Technique: Ultrasound Guidance Number of days: 1 Peripheral IV Anterior;Proximal;Right Forearm (Active) Placement Date/Time: 08/16/241950 Size (Gauge): 20 G Orientation: Anterior;Proximal;Right Location: Forearm Number of days: 0 Peripheral IV Anterior;Right;Upper Arm (Active) Placement Date/Time: 08/16/242014 Size (Gauge): 20 G Orientation: Anterior;Right;Upper Location: Arm Site Prep: Chlorhexidine Technique: Ultrasound Guidance Number of days: 0 Activity Level: Activity as tolerated Consults IP CONSULT TO GASTROENTEROLOGY Disposition Inpatient Code Status Full Code The above assessment and plan will be discussed with the attending. This note is not final until attested by attending physician. Carlos Trujillo MD Internal Medicine Resident - PGY I [facility] 08/19/2024 3:04 PM CREAM MACHINE OPERATOR Associated attestation - Oscar Zendejas MD - 08/20/2024 11:44 AM 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 Attending Physician Attestation I have seen and examined the patient with the resident and I agree with the findings and plan of care as documented by the resident. Date of Service: 08/19/2024 Oscar Zendejas MD, FACP * Jana Faulkner RN - 08/18/2024 7:54 PM CST Pt AXOX4. Pt required a PRN pain med throughout the shift. Pt utilizes the call hubbard appropriately. PT's tele in place. Active rounding performed. Problem: Pain/Discomfort Goal: Patient exhibits reduced pain/discomfort as evidenced by pain scores Outcome: Progressing Goal: Patient uses pharmacological and non-pharmacological pain management strategies. Outcome: Progressing Goal: Patient verbalizes acceptable level of pain relief and ability to engage in desired activity. Outcome: Progressing Problem: Fall Risk Goal: Fall risk and fall related injury risk are minimized (interventions related to the fall risk can be found in the flowsheet documentation) Outcome: Progressing Problem: Balance Goal: LTG - Patient will demonstrate Intervention to enhance balance for safe completion of daily activities Outcome: Progressing Problem: Mobility Goal: LTG - Patient will ambulate community distance Outcome: Progressing CREAM MACHINE OPERATOR * Britton Trujillo MD - 08/18/2024 1:11 PM CST [facility] INTERNAL MEDICINE PROGRESS NOTE Patient: Ray Ashley Sex: male Age: [age] year old Date of : 1955 Date of Admission: 08/16/2024 Date: 08/18/2024 LOS: 2 SUBJECTIVE Interval History: - No acute event overnight - VSS; Denies chest pain, SOB, abdominal pain - Continues to endorse poor appetite - Biliary service consulted for dilated CBD on CT C/A/P; recommends EUS outpatient Hospital Course: Ray Ashley is a 69 year old male with a history of HTN, COPD, Hypothyroidism, L3-4 PSF s/p laminectomy in 1996 who was transferred to [facility] on 08/16 for undifferentiated shock after initially presenting to OSH after a ground level fall. Upon arrival, he was hypotensive to 65/40 requiring pressor support. Labs were notable for Cr 5.74, BUN 54, CK 5864. ABG showed pH 7.29, pO2 61. CT head showed no acute findings and CT Spine showed chronic L3 compression fracture. Neurosurgery was consulted and cleared the patient for C collar removal. CT C/A/P showed LLL consolidation and fluid in right main bronchus concerning for aspiration, as well as a dilated common bile duct with intrahepatic biliary di latation. The patient was initially admitted to MICU for pressor support. He was weaned off pressors on 08/17 and transferred to medicine floor for further management. Biliary service was consulted for dilated CBD on CT C/A/P and recommends EUS outpatient. OBJECTIVE Vital Signs: Vitals: 08/18/24 0400 08/18/24 0420 08/18/24 0751 08/18/24 1130 BP: 153/91 145/75 159/78 Pulse: 89 86 72 Resp: Temp: 98.8 ??F (37.1 ??C) 98.4 ??F (36.9 ??C) 98.1 ??F (36.7 ??C) SpO2: 95% 95% 99% Weight: 74.5 kg (164 lb 3.2 oz) Height: Temp Min: 97.6 ??F (36.4 ??C) Max: 99.9 ??F (37.7 ??C), Pulse Min: 62 Max: 98, Resp Min: 3 Max: 33,BP Min: 65/40 Max: 159/78 Intake & Output: In: 6813.8 [P.O.:1210; I.V.:5603.8] Out: 1650 [Urine:1650] Physical Exam Constitutional: General: He is not in acute distress. Cardiovascular: Rate and Rhythm: Normal rate and regular rhythm. Heart sounds: Normal heart sounds. Pulmonary: Effort: Pulmonary effort is normal. No respiratory distress. Breath sounds: Normal breath sounds. Abdominal: General: Abdomen is flat. There is no distension. Palpations: Abdomen is soft. Tenderness: There is no abdominal tenderness. Skin: General: Skin is warm. Neurological: General: No focal deficit present. Mental Status: He is alert. Mental status is at baseline. Current Medications: Scheduled: 0.9% NaCl 3 mL Intracatheter q8h azithromycin 500 mg Oral QDAY cefTRIAXone 2 g Intravenous q24h DULoxetine 60 mg Oral QDAY gabapentin 300 mg Oral BID heparin 5,000 Units Subcutaneous TID levothyroxine 50 mcg Oral QDAY BEFORE BREAKFAST [Held by Provider] lisinopril 20 mg Oral QDAY pantoprazole EC 40 mg Oral QAM senna 8.6 mg Oral QDAY sodium phosphate 30 mmol Intravenous Once traZODone 100 mg Oral AT BEDTIME Continuous: PRN: SALINE LOCK, INSERT AND MAINTAIN AND 0.9% NaCl AND 0.9% NaCl albuterol-ipratropium [Held by Provider] cyclobenzaprine dextrose IV for hypoglycemia OR dextrose IV for hypoglycemia OR glucagon glucose (Diabetic Use) gel HYDROcodone-acetaminophen lidocaine [Held by Provider] morphine IR Significant Lab Results: Recent Labs Component Name 08/18/24 0640 08/17/24 0513 08/17/24 0407 WBC 3.8* 5.8 4.1 HGB 11.5* 12.0* 7.1* HCT 33.2* 35.3* 21.6* PLTCOUNT 108* 118* 74* Recent Labs Component Name 08/18/24 0640 08/17/24 0513 08/17/24 0407 POTASSIUM 4.0 4.3 4.1 CO2 23 24 18* BUN 24 36* 27* CREATININE 0.82 1.50* 1.14 EGFR >90 51* 70* GLUCOSE 97 103* 81 CALCIUM 7.9* 7.8* 7.1* Microbiology: Microbiology Results (Displays last 21 days for this encounter ONLY) Procedure Component Value - Date/Time CULTURE BLOOD [[id number]] (Normal) Collected: 08/16/242032 Lab Status: Preliminary result Specimen: Blood Peripheral Updated: 08/17/242301 Culture No growth 24 hours CULTURE BLOOD [[id number]] (Normal) Collected: 08/16/242014 Lab Status: Preliminary result Specimen: Blood Peripheral Updated: 08/17/242301 Culture No growth 24 hours CULTURE URINE [[id number]] (Normal) Collected: 08/16/241945 Lab Status: Final result Specimen: Urine Clean Catch Updated: 08/18/24 0006 Culture Urine No growth (<100 CFU/mL) CULTURE SPUTUM+GRAM STAIN [[id number]] Lab Status: No result Specimen: Microbiology from Sputum Imaging & Studies: CT Angio Lower Extremity Left Result Date: 08/16/2024 IMPRESSION: Three-vessel runoff of bilateral lower extremity arteries to the level of ankle. Of note, the dorsalis pedis and tibialis posterior arteries are diminutive bilaterally likely secondary todiffuse spasm but patent without evidence of contrast extravasation to suggest arterial injury or active bleeding. > Dictated by Felix Awad MD (administrative resident). Viviana Brizuela MD havepersonally reviewed and interpreted this examination/study. > Interpreting Provider: Viviana Rain MD on 08/16/2024 5:[address] Angio Lower Extremity Right Result Date: 08/16/2024 IMPRESSION: Three-vessel runoff of bilateral lower extremity arteries to the level of ankle. Of note, the dorsalis pedis and tibialis posterior arteries are diminutive bilaterally likely secondary todiffuse spasm but patent without evidence of contrast extravasation to suggest arterial injury or active bleeding. > Dictated by Felix Awad MD (administrative resident). Viviana Brizuela MD havepersonally reviewed and interpreted this examination/study. > Interpreting Provider: Viviana Rain MD on 08/16/2024 5:[address] CHEST ABDOMEN PELVIS W CONT - Abdomen-pelvis trauma, blunt or penetrating Result Date: 08/16/2024 Impression 1. No acute visceral, vascular, or [...] gastroesophageal reflux/esophagitis. Report dictated by Bryon Watson MD(administrative resident). Viviana Brizuela MD have personally reviewed and interpreted this examination/study. > Interpreting Provider: Viviana Rain MD on 08/16/2024 5:01 PM XR PELVIS 1 OR 2VW Result Date: 08/16/2024 IMPRESSION: No acute displaced fracture or dislocation of pelvis is identified. Report dictated by Rafi Vicente MD (administrative resident). Mason Brizuela have personally reviewed and interpreted this examination/study. > Interpreting Provider: Mason Lucero on 08/16/2024 3:[address] HEAD WO CONTRAST - Head Trauma, CSF leak, mental status changes Result Date: 08/16/2024 IMPRESSION: 1.No acute intracranial hemorrhage, midline shift, [...] findings. Report dictated by Rafi Vicente MD (administrative resident). Ruby Brizuela MD have personally reviewed and interpreted this examination/study. > Interpreting Provider: Ruby Villanueva MD on 08/16/2024 10:[address] CERVICAL SPINE WO CONTRAST - C-Spine Trauma, Spine fracture Result Date: 08/16/2024 IMPRESSION: 1.No acute intracranial hemorrhage, midline shift, [...] findings. Report dictated by Rafi Vicente MD (administrative resident). Ruby Brizuela MD have personally reviewed and interpreted this examination/study. > Interpreting Provider: Ruby Villanueva MD on 08/16/2024 10:[address] THORACIC SPINE WO CONTRAST - T/L-spine trauma, spine fracture Result Date: 08/16/2024 IMPRESSION: 1.No acute intracranial hemorrhage, midline shift, [...] findings. Report dictated by Rafi Vicente MD (administrative resident). Ruby Brizuela MD have personally reviewed and interpreted this examination/study. > Interpreting Provider: Ruby Villanueva MD on 08/16/2024 10:[address] LUMBAR SPINE WO CONTRAST - T/L-spine trauma, Spine fracture Result Date: 08/16/2024 IMPRESSION: 1.No acute intracranial hemorrhage, midline shift, [...] findings. Report dictated by Rafi Vicente MD (administrative resident). Ruby Brizuela MD have personally reviewed and interpreted this examination/study. > Interpreting Provider: Ruby Villanueva MD on 08/16/2024 10:30 AM ASSESSMENT & PLAN Shock (HCC) (POA: Yes) Fall (on) (from) other stairs and steps, initial encounter (POA: Yes) Hiatal hernia (POA: Yes) Aspiration pneumonitis (HCC) (POA: Yes) Chronic back pain (POA: Yes) Hypothyroidism (POA: Yes) Rhabdomyolysis (POA: Yes) PRIYANKA (acute kidney injury) (HCC) (POA: Yes) Lactic acidosis (POA: Yes) Acute encephalopathy (POA: Yes) Common bile duct dilation (POA: Yes) COPD (chronic obstructive pulmonary disease) (HCC) (POA: Yes) Tobacco abuse (POA: Yes) History of lumbar laminectomy (POA: Yes) Leukocytosis (POA: Yes) GERD (gastroesophageal reflux disease) (POA: Yes) Ray Ashley is a 69 year old male with a history of HTN, COPD, Hypothyroidism, L3-4 PSF s/p laminectomy in 1996 who was transferred to [facility] on 08/16 for undifferentiated shock after initially presenting to OSH after a ground level fall, now being treated for aspiration pneumonia and PRIYANKA. # Aspiration Pneumonia - CT CAP showed LLL consolidation and fluid in right main bronchus concerning for aspiration - WBC 17.4 - 9.3 - 4.1 - 5.8 - Blood culture negative to date - Shock on admission; could be septic from aspiration pneumonia Plan: - Continue Ceftriaxone 2000 mg Qday for 5 days (Day 2/5) - Start Azithromycin 500 mg Qday for 3 days (Day 1/3) # PRIYANKA - Cr 5.74 on admission; now 0.82 - Baseline Cr: Unclear; 1.14 this morning - Ddx: Hypovolemia vs Medication vs ATN vs Ischemia vs Post renal obstruction - s/p 2.5 L LR bolus Plan: - Avoid nephrotoxic medications - Continue to monitor # Syncope - Patient reports black out prior to ground level fall - No known history of cardiac disease or seizure disorder - Ddx includes orthostatic syncope in the setting of poor oral intake and hypovolemia vs vasovagal syncope vs cardiac syncope vs seizure disorder - TTE showed normal left ventricular systolic and diastolic functions and no valvular abnormalities; decreased right ventricular diastolic function and borderline pHTN noted. Plan: - Obtain orthostatic vitals - Continue Telemetry monitoring # Acute Encephalopathy - Resolved - Per chart review, patient appeared confused upon arrival - A&O x 4 now - Could be acute delirium from infection vs hypovolemia vs metabolic encephalopathy - Continue to monitor # Shock - Resolved - Hypotensive to 65/40 requiring pressor support; now weaned off - Ddx includes hypovolemic shock from dehydration and poor PO intake vs septic shock from aspiration pneumonia Plan: - Follow up with TTE - Hold home Lisinopril 20 mg Qday - Continue to monitor # Dilated Common Bile Duct # Poor PO intake - CT showed dilated common bile duct with intrahepatic bilary dilation - Reports poor PO intake for the past week or more - AST 53, ALT 39, Alk Phos 49, T Bili 0.4; no significant abnormalities overall - Biliary service consulted; recommends EUS outpatient # COPD - No PFT in chart - SpO2 100% on room air - Denies SOB - Continue Duo-neb Q4h PRN # Hypothyroidism - TSH 0.112; however unreliable in the setting of acute illiness - Continue home Levothyroxine 50 mcg Qday - Follow up with TSH level outpatient # Chronic lower back pain - History of L3-4 PSF s/p laminectomy in 1996 - Continue home Hydrocodone-Acetaminophen 10-325 mg Q6h PRN - Start PRN Lidocaine patch # Anxiety - Continue Duloxetine 60 mg Qday # Insomnia - Continue Trazodone 100 mg Qhs Daily Checklist VTE PPX [x] SCD [x] SQ Heparin [] SQ Lovenox [] Therapeutic Anticoagulation VTE Chemical Prophylaxis Orders (From admission, onward) Ordered Start Stop 08/16/24 1854 heparin injection 5,000 Units 5,000 Units, Subcutaneous, 3 TIMES DAILY 08/16/24 2100 -- VTE Mechanical Prophylaxis Orders (From admission, onward) Ordered Start 08/16/24 182 SEQUENTIAL COMPRESSION DEVICE (IMPLEMENT) CONTINUOUS Start Time: 08/16/241829 Order ID: [id number] Status: Sent 08/16/241829 Stress Ulcer PPX [] None [] Famotidine [x] PPI Fluids Electrolytes Nutrition [] None [x] IV maintenance fluids [] IV colloid infusions K~4.0 Mg~2.0 Phos~3.0 DIET REGULAR LDA Peripheral IV Anterior;Left Forearm (Active) Placement Date: 08/16/24 Size (Gauge): 20 G Orientation: Anterior;Left Location: Forearm Number of days: 1 Peripheral IV Left Antecubital (Active) Placement Date/Time: 08/16/24656 Size (Gauge): 20 G Orientation: Left Location: Antecubital Technique: Ultrasound Guidance Number of days: 1 Peripheral IV Anterior;Proximal;Right Forearm (Active) Placement Date/Time: 08/16/241950 Size (Gauge): 20 G Orientation: Anterior;Proximal;Right Location: Forearm Number of days: 0 Peripheral IV Anterior;Right;Upper Arm (Active) Placement Date/Time: 08/16/242014 Size (Gauge): 20 G Orientation: Anterior;Right;Upper Location: Arm Site Prep: Chlorhexidine Technique: Ultrasound Guidance Number of days: 0 Activity Level: Activity as tolerated Consults IP CONSULT TO GASTROENTEROLOGY Disposition Inpatient Code Status Full Code The above assessment and plan will be discussed with the attending. This note is not final until attested by attending physician. Carlos Trujillo MD Internal Medicine Resident - PGY I [facility] 08/18/2024 3:55 PM CREAM MACHINE OPERATOR Associated attestation - Oscar Zendejas MD - 08/19/2024 1:32 PM 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 Attending Physician Attestation I have seen and examined the patient with the resident and I agree with the findings and plan of care as documented by the resident. Date of Service: 08/18/2024 Oscar Zendejas MD, FACP * Ana Stephens RN - 08/18/2024 11:08 AM CST Care Coordination Progress Note Expected Discharge Date: 08/19/2024 Discharge Plan: Waiting on PT/OT recommendations; possible need for HHC; will need orders. Stopped fluid. Plan is to send home on PO abx. Continued Care and Services - Admitted Since 08/16/2024 Home Medical Care Service Provider Request Status Selected Services Address Phone Fax Patient Preferred [facility] Pending - No Request Sent -- [address] [phone] -- [facility] Pending - No Request Sent -- [facility] [place] [facility] [address] [phone] -- [facility] Pending - No Request Sent -- [address], [facility] [address] -- Family Support (Name and Phone): Extended Emergency Contact Information Primary Emergency Contact: Junie Farris Mobile Relation: Significant other Preferred language: Kiswahili Event Marketing Specialist needed? No Secondary Emergency Contact: Isela Townsend Mobile Relation: Daughter Transportation at Discharge: Family: READMISSION RISK SCORE is 13 at 11:08 AM 08/18/2024.: [email or web address] [email or web address] MARIA SANDERS, MA-Certification, A.D.N, BSN [phone] CREAM MACHINE OPERATOR * Dotty Aviles, PT - 08/18/2024 9:45 AM CST [facility] Physical Therapy Initial Evaluation Note Patient: Ray Ashley Med Record Number: [id number] Date of : 1955 Age: [age] year old PPE worn by staff: gloves PPE worn by patient: gown - patient, clean;socks - clean Co-Treat with OT Recommendations: Discharge PT Discharge Recommendations: Patient may return home without the need for ongoing skilled therapy services post-hospitalization In addition to the 1:1 evaluation of the patient, additional eval time was spent completing the chart review prior to the assessment, completing the multidisciplinary plan of care and education plan post evaluation and communicating results of the eval to other treatment team members. Patient currently using Wheeled Walker and has equipment at home. No equipment needs if d/c home. Occupational Therapist contacted regarding patient status and/or discharge plan. Physician Orders: Evaluation and Treat PRECAUTIONS: Weight Bearing Status: (No restrictions) Activity Level: Activity as Tolerated DIAGNOSIS: Patient Active Problem List: Shock (HCC) Fall (on) (from) other stairs and steps, initial encounter Hiatal hernia Aspiration pneumonitis (HCC) Chronic back pain Hypothyroidism Rhabdomyolysis PRIYANKA (acute kidney injury) (HCC) Lactic acidosis Acute encephalopathy Common bile duct dilation COPD (chronic obstructive pulmonary disease) ([facility]) Tobacco abuse History of lumbar laminectomy Leukocytosis GERD (gastroesophageal reflux disease) Past Medical History: Diagnosis Date Chronic back pain COPD (chronic obstructive pulmonary disease) ([facility]) Essential (primary) hypertension Hypothyroidism Neuropathy SUBJECTIVE: Subjective: Pt agreeable to PT PATIENT GOALS: Home Situation: Type of Residence: Private Residence Living arrangement: Spouse/Significant Other Ramp: Yes Home Structure: One Story Primary Bedroom: First Floor Primary Bathroom: First Floor Bathroom : Walk in Shower Equipment at Home: Bathroom Equipment;Cane;Walker Additional Information (PT): PRN use of SPC Prior Level of Functioning: Prior Level of Function Mobility: Ambulate-In Community;Ambulate-In Home Fallen Within 6 Mos: 2 Have Help at Home?: Yes, there is help at home now How often is assistance provided?: PRN - baseline independent Level of Help Sufficient?: Yes Oxygen at Home: No Activity at Home: Active Vision: Corrected with glasses Hearing Exceptions: No impairment Who manages medications?: self Pain Assessment: Pain Assessment Pain Scale/Observation: No/denies pain Pain Rating Score #1: 0 Sedation Level: 1-Awake and alert OBJECTIVE: At start of therapy session, patient found in bed and with no alarm. General Appearance: in NAD LDAs: None Edema: no edema noted in bilateral lower extremities Vitals: (*Assess the 3 levels of oxygen saturations both for room air and 02 unless rest on room air is 88% or less). Sitting at EOB BP: 184/86 (107) HR: Sp02 Room Air Post Activity BP: 155/90 HR: Sp02 Sp02 Room Air L O2 Observations: Patient on bed balderrama on arrival with urgent need to use restroom. Unable to obtain formal orthostatic assessment. Patient with subjective reports of dizziness with change in position thatimproves with time between transfers. Posture: Patient with severe forward flexion at baseline due to chronic LBP. Unable to correct due to chronicity. Mental Status/Cognition: Level of Consciousness-Adult: (oriented x4) Following Commands: Follows all commands and directions without difficulty Safety Judgement: Decreased awareness of need for safety Awareness of Errors: Decreased awareness of deficits Problem Solving: Assistance required to generate solutions ROM: RLE: AROM WFL LLE: AROM WFL Strength: RLE:WNL LLE: WNL Tone: RLE: no abnormal tone noted LLE: no abnormal tone noted Coordination: RLE: not tested LLE: not tested Sensation: RLE: intact, no complaints of numbness or tingling LLE: intact, no complaints of numbness or tingling Mobility: A gait belt and non-slip socks were used for all out of bed activity this date. Bed Mobility: Rolling: Complete [place] (for hilario care) Supine to Sit: Stand By Assist with HOB in semi-fowlers position Transfers: Sit to Stand: Stand By Assist Stand to Sit: Stand By Assist Toilet Transfers: Stand By Assist Transfer Device: Gait belt Gait: Weight Bearing Status: (No restrictions) Distance Ambulated (ft): 10 FEET (10 feet Alfredo with no AD, 10 feet SBA with RW.) Ambulation: Assistive Device: Gait Belt Ambulation: Level of Assistance: Minimum Assistance Comments: Patient with severe forward flexed posture. Unable to correct due to chronicity. Patient with improved balance with rolling walker. Balance: Balance Scales/Tests Used: Sitting: Static/Dynamic;Standing: Static/Dynamic Sitting - Static: Good Sitting - Dynamic: Good Standing - Static: Fair +;With Both Upper Extremity's Support Standing - Dynamic: Fair;With Both Upper Extremity's Support TREATMENT/INTERVENTIONS: evaluation, bed mobility training, transfer training, gait training, monitoring of vitals, and pt instructed to take time between transfer to allow dizziness to pass. Patientinstructed in seated exercises to help improve dizziness. AM-PAC 6 Clicks Mobility Raw Score:: 22 EDUCATION: While performing PT, Patient was instructed in:functional mobility training, energy conservation, safety awareness/fall precautions , pursed lip breathing techniques, use of adaptive equipment, discharge planning, use of call light Presented to patient who demonstrates Fair understanding of instructions given. INFORMED CONSENT TO TREATMENT: Plan of care including recommended therapy, goals and frequency, discussed with patient who understands and agrees to proceed. ASSESSMENT: Patient would benefit from additional Physical Therapy sessions to achieve the following functionalgoals to enhance independence. Short Term Goals: Goal Formation With patient/family Patient will transfer bed to/from chair independently Patient will ambulate 150 feet with modified independence and with appropriate assistive device Patient will perform home exercise program independently Proof Plate Maker Goal(s): Patient to be baseline with functional mobility and self-care and should discharge to prior level of care. Equipment Issued: gait belt Plan: Gait training Transfer training Stair training Assistive device training Endurance training Bed mobility training Balance training Energy conservation techniques Safety awareness Home exercise program training If patient is discharged from the facility, this note serves as a discharge summary if further physical therapy visits did not occur. Refer to filed flowsheet for further details. Following therapy session, patient left in patient bedside chair , with chair alarm on and positioned under patient's buttocks , with call light within reach, with family in room, with therapy cues visible on white board, with fall mats in place. CREAM MACHINE OPERATOR * Aruna Nguyen, OT - 08/18/2024 9:45 AM CST [facility] Occupational Therapy Initial Evaluation Note Patient: Ray Ashley Med Record Number: [id number] Date of : 1955 Age: [age] year old PPE worn by staff: gloves PPE worn by patient: gown - patient, clean;socks - clean Tech: na; seen with PT Recommendations: Discharge OT Discharge Recommendations: Patient may return home without the need for ongoing skilled therapy services post-hospitalization In addition to the 1:1 evaluation of the patient, additional eval time was spent completing the chart review prior to the assessment, completing the multidisciplinary plan of care and education plan post evaluation and communicating results of the eval to other treatment team members. Nurse and Physical Therapy contacted regarding patient status and/or discharge plan. Physician Orders: Evaluation and Treat Activity Level: as tolerated PRECAUTIONS: Weight Bearing Status: Lower Extremity;Upper Extremity Weight Bearing: WBAT DIAGNOSIS: Patient Active Problem List: Shock (HCC) Fall (on) (from) other stairs and steps, initial encounter Hiatal hernia Aspiration pneumonitis (HCC) Chronic back pain Hypothyroidism Rhabdomyolysis PRIYANKA (acute kidney injury) (HCC) Lactic acidosis Acute encephalopathy Common bile duct dilation COPD (chronic obstructive pulmonary disease) (HCC) Tobacco abuse History of lumbar laminectomy Leukocytosis GERD (gastroesophageal reflux disease) Past Medical History: Diagnosis Date Chronic back pain COPD (chronic obstructive pulmonary disease) (HCC) Essential (primary) hypertension Hypothyroidism Neuropathy SUBJECTIVE: Subjective: Pt agreeable throughout PATIENT GOALS: Home Situation: Type of Residence: Private Residence Living arrangement: Spouse/Significant Other Ramp: Yes Home Structure: One Story Primary Bedroom: First Floor Primary Bathroom: First Floor Bathroom : Walk in Shower Equipment at Home: Bathroom Equipment;Cane;Walker Additional Information (OT): Pt typically independent with ADLs/mobility Prior Level of Functioning: Mobility: Ambulate-In Community;Ambulate-In Home Fallen Within 6 Mos: 2 Have Help at Home?: Yes, there is help at home now How often is assistance provided?: PRN - baseline independent Level of Help Sufficient?: Yes Oxygen at Home: No Activity at Home: Active Vision: Corrected with glasses Hearing Exceptions: No impairment Who manages medications?: self Pain Assessment: Pain Assessment Pain Scale/Observation: No/denies pain Pain Rating Score #1: 0 Sedation Level: 1-Awake and alert OBJECTIVE: At start of therapy session, patient found in bed and with bed alarm on General Appearance: 69 y/o male; supine NAD LDA: Floor: IVs: Peripheral line Edema: No edema noted Vitals: (*Assess the 3 levels of oxygen saturations both for room air and 02 unless rest on room air is 88% or less). Sitting at EOB BP: 184/86 (107) HR: Sp02 Room Air Post Activity BP: 155/90 HR: Sp02 Sp02 Room Air L O2 Observations: Patient on bed balderrama on arrival with urgent need to use restroom. Unable to obtain formal orthostatic assessment. Patient with subjective reports of dizziness with change in position thatimproves with time between transfers. Mental Status/Cognition: Level of Consciousness-Adult: (oriented x4) Attention Span: Appears intact Memory: Appears intact Following Commands: Follows all commands and directions without difficulty Safety Judgement: Decreased awareness of need for safety Awareness of Errors: Decreased awareness of deficits Problem Solving: Assistance required to generate solutions UE ROM: RUE: AROM WFL LUE: AROM WFL Strength: RUE: WNL LUE: WNL UE Tone RUE: no abnormal tone noted LUE: no abnormal tone noted Coordination: intact serial opposition for bilateral hands, intact FNF UE Proprioception RUE: WFL LUE: WFL UE Sensation RUE: intact, no complaints of numbness or tingling LUE: intact, no complaints of numbness or tingling Perception: Inattention/Neglect: Appears intact Visual Motor Tracking: Able to track stimulus in all quads w/o difficulty Mobility: A gait belt and non-slip socks were used for all out of bed activity this date. Bed Mobility: Rolling: Stand By Assist Supine to Sit: Stand By Assist with HOB in semi-fowlers position Sit to Supine: Activity Does Not Occur (pt in chair at end of session) Transfers: Sit to Stand: Stand By Assist Stand to Sit: Stand By Assist Type of Transfer: Other (Comment) (ambulatory in room, min assist without device, SBA with WW) Transfer Device: Gait belt;Walker-2 Wheeled Functional Ambulation: Patient ambulated to/from bathroom with min assist using no device, SBA with WW. Comments: improved balance noted when using WW. Pt with tendency for flexed forward posture, statesthis is his baseline 2/2 multiple past spine surgeries. Balance: Balance Scales/Tests Used: Sitting: Static/Dynamic;Standing: Static/Dynamic Sitting - Static: Good Sitting - Dynamic: Good Standing - Static: Fair +;With Both Upper Extremity's Support Standing - Dynamic: Fair;With Both Upper Extremity's Support Activities of Daily Living Feeding: Activity Does Not Occur Oral Facial Hygiene: Stand By Assist (to wash face) Bathing: Activity Does Not Occur Upper Body Dressing: Stand By Assist (to don clean gown) Lower Body Dressing: Stand By Assist (to adjust socks) Toileting: Stand By Assist (for hilario care hygiene while seated on toilet) Splint Issued/Checked: none ACTIVITY TOLERANCE: Activity Tolerance: Tolerates ADLs without rest breaks AM-PAC 6 Clicks Daily Activity Raw Score:: 23 TREATMENT / EDUCATION / INTERVENTIONS: While performing OT, Patient and spouse was instructed in:functional mobility training, self-care training Presented to patient who demonstrates Fair understanding of instructions given. INFORMED CONSENT TO TREATMENT: Plan of care including recommended therapy, goals and frequency, discussed with patient who understands and agrees to proceed. ASSESSMENT: Functional performance limited due to: limited activities of daily living, decreased functional mobility, decreased functional balance, and decreased endurance and activity tolerance. Patient continues to benefit from skilled Occupational Therapy to achieve the following functional goals. Short Term Goals: Goal Formation With patient/family Patient will perform grooming standing at sink and independently Patient will perform lower extremity dressing independently Patient will perform toileting independently Patient will transfer to standard toilet independently [facility] Goal(s): Patient to be independent with functional mobility and self-care and should be able to safely discharge to prior level of care. Plan: Patient continues to benefit from skilled therapy services., Continue with goals as established. If patient is discharged from the facility, this note serves as a discharge summary if further occupational therapy visits did not occur. Refer to filed flowsheet for further details. Following therapy session, patient left in patient bedside chair , with chair alarm on and positioned under patient's buttocks , with call light within reach, with family in room, with Jana JAFFE aware, with therapy cues visible on white board, with fall mats in place. CREAM MACHINE OPERATOR * Jana Faulkner RN - 08/17/2024 7:01 PM CST Pt is AXOX4. Pt's call hubbard within reach. Pt denies pain. Active rounding performed. Pt's family present at bedside. Telemetry in place. Will continue to monitor. CREAM MACHINE OPERATOR * Britton Trujillo MD - 08/17/2024 5:31 PM CST [facility] INTERNAL MEDICINE PROGRESS NOTE Patient: Ray Ashley Sex: male Age: [age] year old Date of : 1955 Date of Admission: 08/16/2024 Date: 08/17/2024 LOS: 1 SUBJECTIVE Interval History: - Transferred to floor from MICU - VSS; Denies chest pain, SOB, abdominal pain Hospital Course: Ray Ashley is a 69 year old male with a history of HTN, COPD, Hypothyroidism, L3-4 PSF s/p laminectomy in 1996 who was transferred to [facility] on 08/16 for undifferentiated shock after initially presenting to OSH after a ground level fall. Upon arrival, he was hypotensive to 65/40 requiring pressor support. Labs were notable for Cr 5.74, BUN 54, CK 5864. ABG showed pH 7.29, pO2 61. CT head showed no acute findings and CT Spine showed chronic L3 compression fracture. Neurosurgery was consulted and cleared the patient for C collar removal. CT CAP showed LLL consolidation and fluid in right main bronchus concerning for aspiration, as well as a dilated common bile duct with intrahepatic biliary dila tation. The patient was initially admitted to MICU for pressor support. He was weaned off pressors on 08/17 and transferred to medicine floor for further management. OBJECTIVE Vital Signs: Vitals: 08/17/24 1615 08/17/24 1630 08/17/24 1634 08/17/24 1711 BP: 95/65 122/82 132/66 Pulse: 67 93 87 69 Resp: 14 23 13 18 Temp: 98.8 ??F (37.1 ??C) 97.9 ??F (36.6 ??C) SpO2: 100% 100% 100% Weight: Height: Temp Min: 97.6 ??F (36.4 ??C) Max: 99.9 ??F (37.7 ??C), Pulse Min: 65 Max: 98, Resp Min: 3 Max: 33,BP Min: 65/40 Max: 135/76 Intake & Output: In: 4625.7 [P.O.:600; I.V.:4025.7] Out: 1950 [Urine:1950] Physical Exam Constitutional: General: He is not in acute distress. Cardiovascular: Rate and Rhythm: Normal rate and regular rhythm. Heart sounds: Normal heart sounds. Pulmonary: Effort: Pulmonary effort is normal. No respiratory distress. Breath sounds: Normal breath sounds. Abdominal: General: Abdomen is flat. There is no distension. Palpations: Abdomen is soft. Tenderness: There is no abdominal tenderness. Skin: General: Skin is warm. Neurological: General: No focal deficit present. Mental Status: He is alert. Mental status is at baseline. Current Medications: Scheduled: 0.9% NaCl 3 mL Intracatheter q8h cefTRIAXone 2 g Intravenous q24h DULoxetine 60 mg Oral QDAY gabapentin 300 mg Oral BID heparin 5,000 Units Subcutaneous TID iopamidol Intravenous Contrast - Once levothyroxine 50 mcg Oral QDAY BEFORE BREAKFAST [Held by Provider] lisinopril 20 mg Oral QDAY pantoprazole EC 40 mg Oral QAM senna 8.6 mg Oral QDAY traZODone 100 mg Oral AT BEDTIME Continuous: lactated ringers, , Last Rate: 75 mL/hr at 08/17/24 1759 PRN: SALINE LOCK, INSERT AND MAINTAIN AND 0.9% NaCl AND 0.9% NaCl albuterol-ipratropium [Held by Provider] cyclobenzaprine dextrose IV for hypoglycemia OR dextrose IV for hypoglycemia OR glucagon glucose (Diabetic Use) gel HYDROcodone-acetaminophen lidocaine [Held by Provider] morphine IR Significant Lab Results: Recent Labs Component Name 08/17/2451208/17/2440608/16/24 190 WBC 5.8 4.1 9.3 HGB 12.0* 7.1* 13.7 HCT 35.3* 21.6* 40.1 PLTCOUNT 118* 74* 144* Recent Labs Component Name 08/17/2451208/17/2440608/16/241904 POTASSIUM 4.3 4.1 4.1 CO2 24 18* 21* BUN 36* 27* 46* CREATININE 1.50* 1.14 2.85* EGFR 51* 70* 23* GLUCOSE 103* 81 108* CALCIUM 7.8* 7.1* 7.9* Microbiology: Microbiology Results (Displays last 21 days for this encounter ONLY) Procedure Component Value - Date/Time CULTURE BLOOD [[id number]] Collected: 08/16/242032 Lab Status: In process Specimen: Blood Peripheral Updated: 08/16/242038 CULTURE BLOOD [[id number]] Collected: 08/16/242014 Lab Status: In process Specimen: Blood Peripheral Updated: 08/16/242038 CULTURE URINE [[id number]] (Normal) Collected: 08/16/24 194 Lab Status: Preliminary result Specimen: Urine Clean Catch Updated: 08/17/24 1406 Culture Urine No growth (<100 CFU/mL) CULTURE SPUTUM+GRAM STAIN [[id number]] Lab Status: No result Specimen: Microbiology from Sputum Imaging & Studies: CT Angio Lower Extremity Left Result Date: 08/16/2024 IMPRESSION: Three-vessel runoff of bilateral lower extremity arteries to the level of ankle. Of note, the dorsalis pedis and tibialis posterior arteries are diminutive bilaterally likely secondary todiffuse spasm but patent without evidence of contrast extravasation to suggest arterial injury or active bleeding. > Dictated by Felix Awad MD (administrative resident). I, Veysel Akgun, MD havepersonally reviewed and interpreted this examination/study. > Interpreting Provider: Viviana Rain MD on 08/16/2024 5:[address] Angio Lower Extremity Right Result Date: 08/16/2024 IMPRESSION: Three-vessel runoff of bilateral lower extremity arteries to the level of ankle. Of note, the dorsalis pedis and tibialis posterior arteries are diminutive bilaterally likely secondary todiffuse spasm but patent without evidence of contrast extravasation to suggest arterial injury or active bleeding. > Dictated by Felix Awad MD (administrative resident). Viivana Brizuela MD havepersonally reviewed and interpreted this examination/study. > Interpreting Provider: Viviana Rain MD on 08/16/2024 5:[address] CHEST ABDOMEN PELVIS W CONT - Abdomen-pelvis trauma, blunt or penetrating Result Date: 08/16/2024 Impression 1. No acute visceral, vascular, or [...] gastroesophageal reflux/esophagitis. Report dictated by Bryon Watson MD(administrative resident). Viviana Brizuela MD have personally reviewed and interpreted this examination/study. > Interpreting Provider: Viviana Rain MD on 08/16/2024 5:01 PM XR PELVIS 1 OR 2VW Result Date: 08/16/2024 IMPRESSION: No acute displaced fracture or dislocation of pelvis is identified. Report dictated by Rafi Vicente MD (administrative resident). Mason Brizuela have personally reviewed and interpreted this examination/study. > Interpreting Provider: Mason Lucero on 08/16/2024 3:[address] HEAD WO CONTRAST - Head Trauma, CSF leak, mental status changes Result Date: 08/16/2024 IMPRESSION: 1.No acute intracranial hemorrhage, midline shift, [...] findings. Report dictated by Rafi Vicente MD (administrative resident). Ruby Brizuela MD have personally reviewed and interpreted this examination/study. > Interpreting Provider: Ruby Villanueva MD on 08/16/2024 10:[address] CERVICAL SPINE WO CONTRAST - C-Spine Trauma, Spine fracture Result Date: 08/16/2024 IMPRESSION: 1.No acute intracranial hemorrhage, midline shift, [...] findings. Report dictated by Rafi Vicente MD (administrative resident). Ruby Brizuela MD have personally reviewed and interpreted this examination/study. > Interpreting Provider: Ruby Villanueva MD on 08/16/2024 10:[address] THORACIC SPINE WO CONTRAST - T/L-spine trauma, spine fracture Result Date: 08/16/2024 IMPRESSION: 1.No acute intracranial hemorrhage, midline shift, [...] findings. Report dictated by Rafi Vicente MD (administrative resident). Ruby Brizuela MD have personally reviewed and interpreted this examination/study. > Interpreting Provider: Ruby Villanueva MD on 08/16/2024 10:[address] LUMBAR SPINE WO CONTRAST - T/L-spine trauma, Spine fracture Result Date: 08/16/2024 IMPRESSION: 1.No acute intracranial hemorrhage, midline shift, [...] findings. Report dictated by Rafi Vicente MD (administrative resident). Ruby Brizuela MD have personally reviewed and interpreted this examination/study. > Interpreting Provider: Ruby Villanueva MD on 08/16/2024 10:30 AM ASSESSMENT & PLAN Shock (HCC) (POA: Yes) Fall (on) (from) other stairs and steps, initial encounter (POA: Yes) Hiatal hernia (POA: Yes) Aspiration pneumonitis (HCC) (POA: Yes) Chronic back pain (POA: Yes) Hypothyroidism (POA: Yes) Rhabdomyolysis (POA: Yes) PRIYANKA (acute kidney injury) (HCC) (POA: Yes) Lactic acidosis (POA: Yes) Acute encephalopathy (POA: Yes) Common bile duct dilation (POA: Yes) COPD (chronic obstructive pulmonary disease) (HCC) (POA: Yes) Tobacco abuse (POA: Yes) History of lumbar laminectomy (POA: Yes) Leukocytosis (POA: Yes) GERD (gastroesophageal reflux disease) (POA: Yes) Ray Ashley is a 69 year old male with a history of HTN, COPD, Hypothyroidism, L3-4 PSF s/p laminectomy in 1996 who was transferred to [facility] on 08/16 for undifferentiated shock after initially presenting to OSH after a ground level fall, now being treated for aspiration pneumonia and PRIYANKA. # Aspiration Pneumonia - CT CAP showed LLL consolidation and fluid in right main bronchus concerning for aspiration - WBC 17.4 - 9.3 - 4.1 - 5.8 - Blood culture negative to date - Shock on admission; could be septic from aspiration pneumonia Plan: - Continue Ceftriaxone 2000 mg Qday for 5 days (Day 1) # PRIYANKA - Cr 5.74 on admission; now 1.5 - Baseline Cr: Unclear; 1.14 this morning - Ddx: Hypovolemia vs Medication vs ATN vs Ischemia vs Post renal obstruction - s/p 2.5 L LR bolus Plan: - Continue LR 75 cc/hr - Avoid nephrotoxic medications - Continue to monitor # Syncope - Patient reports black out prior to ground level fall - No known history of cardiac disease or seizure disorder - Ddx includes orthostatic syncope in the setting of poor oral intake and hypovolemia vs vasovagal syncope vs cardiac syncope vs seizure disorder Plan: - Obtain orthostatic vitals - Continue Telemetry monitoring - Follow up with TTE # Acute Encephalopathy - Resolved - Per chart review, patient appeared confused upon arrival - A&O x 4 now - Could be acute delirium from infection vs hypovolemia vs metabolic encephalopathy - Continue to monitor # Shock - Resolved - Hypotensive to 65/40 requiring pressor support; now weaned off - Ddx includes hypovolemic shock from dehydration and poor PO intake vs septic shock from aspiration pneumonia Plan: - Follow up with TTE - Hold home Lisinopril 20 mg Qday - Continue to monitor # Dilated Common Bile Duct # Poor PO intake - CT showed dilated common bile duct with intrahepatic bilary dilation - stated that patient has had poor PO intake for the past week or more - Will need MRCP this admission or outpatient for follow up # COPD - No PFT in chart - SpO2 100% on room air - Denies SOB - Continue Duo-neb Q4h PRN # Hypothyroidism - Continue home Levothyroxine 50 mcg Qday # Chronic lower back pain - History of L3-4 PSF s/p laminectomy in 1996 - Continue home Hydrocodone-Acetaminophen 10-325 mg Q6h PRN - Start PRN Lidocaine patch # Anxiety - Continue Duloxetine 60 mg Qday # Insomnia - Continue Trazodone 100 mg Qhs Daily Checklist VTE PPX [x] SCD [x] SQ Heparin [] SQ Lovenox [] Therapeutic Anticoagulation VTE Chemical Prophylaxis Orders (From admission, onward) Ordered Start Stop 08/16/241853 heparin injection 5,000 Units 5,000 Units, Subcutaneous, 3 TIMES DAILY 08/16/24 2100 -- VTE Mechanical Prophylaxis Orders (From admission, onward) Ordered Start 08/16/241824 SEQUENTIAL COMPRESSION DEVICE (IMPLEMENT) CONTINUOUS Start Time: 08/16/241829 Order ID: [id number] Status: Sent 08/16/241829 Stress Ulcer PPX [] None [] Famotidine [x] PPI Fluids Electrolytes Nutrition [] None [x] IV maintenance fluids [] IV colloid infusions K~4.0 Mg~2.0 Phos~3.0 DIET REGULAR LDA Peripheral IV Anterior;Left Forearm (Active) Placement Date: 08/16/24 Size (Gauge): 20 G Orientation: Anterior;Left Location: Forearm Number of days: 1 Peripheral IV Left Antecubital (Active) Placement Date/Time: 08/16/24656 Size (Gauge): 20 G Orientation: Left Location: Antecubital Technique: Ultrasound Guidance Number of days: 1 Peripheral IV Anterior;Proximal;Right Forearm (Active) Placement Date/Time: 08/16/241950 Size (Gauge): 20 G Orientation: Anterior;Proximal;Right Location: Forearm Number of days: 0 Peripheral IV Anterior;Right;Upper Arm (Active) Placement Date/Time: 08/16/242014 Size (Gauge): 20 G Orientation: Anterior;Right;Upper Location: Arm Site Prep: Chlorhexidine Technique: Ultrasound Guidance Number of days: 0 Activity Level: Activity as tolerated Consults None Disposition Inpatient Code Status Full Code The above assessment and plan will be discussed with the attending. This note is not final until attested by attending physician. Carlos Trujillo MD Internal Medicine Resident - PGY I [facility] 08/17/2024 6:22 PM CREAM MACHINE OPERATOR Associated attestation - Oscar Zendejas MD - 08/18/2024 1:26 PM 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 Attending Physician Attestation I did not see and examine the patient with the resident on 08/17. I saw the pt on 08/18, and I agree with the findings and plan of care as documented by the resident. Date of Service: 08/17/2024 Oscar Zendejas MD, FACP * Melissa Schulz, DO - 08/17/2024 5:03 PM CST MICU Progress Note 08/17/2024 5:09 PM Patient: Ray Ashley (:1955) Room: [facility] Admit Date: 08/16/2024. Hospital Day: 1 Hospital Course: Ray Ashley is a 69 year old male with history of COPD, tobacco abuse, chronic back pain with prior L3-L4 laminectomy and posterior spinal fusion (1996), and hypothyroidism who initially presented to [facility] on 08/16/24 after a fall down the stairs (10 steps) the day prior and did not seek immediate care. He reports falling after helping his carrying heavy bags. He reports feelingdizzy but denies preceding chest pain, palpitations, urinary incontinence, or tongue biting. Eventually presented to the ED for confusion, found to have hypotension requiring pressor support. Transferred to [facility] for trauma evaluation. Labs on arrival notable for PRIYANKA, elevated CK, leukocytosis. CT head without acute findings. CT spine showed L3 compression fracture, likely chronic and C-spine collar was cleared. CT CAP concerning for aspiration and LLQ consolidation, as well as a dilated common bile duct with intrahepatic biliary dilatation, and moderate hiatal hernia. He was admitted to ICU, started on IVFs, levophed, ceftriaxone for aspiration pneumonia. Interval History: No longer requiring pressor support. PRIYANKA, CK levels, leukocytosis all continuing to improve. Stableto TTF. Objective: Vitals: 08/17/24 1600 08/17/24 1615 08/17/24 1630 08/17/24 1634 BP: 84/58 95/65 122/82 Pulse: 65 67 93 87 Resp: 11 14 23 13 Temp: 98.8 ??F (37.1 ??C) SpO2: 100% 100% 100% Weight: Height: Physical Exam General - NAD, afebrile, non cachectic HEENT - NC/AT, EOMI, clear conjunctivae, moist mucous membranes Neck - Supple Chest - normal respiratory effort, bibasilar crackles CV - RRR no murmurs, radial and DP pulses 2/4, good capillary refill Abdomen - Soft, NT/ND, +BS Extremities - No edema, no rigidity, no visible injuries Skin - No rashes, lesions, jaundice Neurologic - A&Ox3, no focal neurological deficits Psych - Appropriate mood and affect Labs: CBC: Recent Labs Component Name 08/17/24 0513 08/17/24 0407 08/16/24 1905 WBC 5.8 4.1 9.3 HGB 12.0* 7.1* 13.7 HCT 35.3* 21.6* 40.1 BMP: Recent Labs Component Name 08/17/24 0513 08/17/24 0407 08/16/24 1905 NA 142 136 141 CL 111* 111* 110* CO2 24 18* 21* BUN 36* 27* 46* CREATININE 1.50* 1.14 2.85* CALCIUM 7.8* 7.1* 7.9* PHOS - 1.8* 4.1 Hepatic: Recent Labs Component Name 08/17/24 0407 08/16/24 1905 08/16/24 0852 ALT 27 48 41 AST 43* 87* 78* TBILI 0.2 0.5 0.4 PROT 3.6* 5.7* 5.7* ALB 1.7* 2.7* 2.7* ALKPHOS 52 63 64 Coagulation: Recent Labs Component Name 08/17/24 0407 08/16/24 0550 PT 21.7* 14.3 INR 2.0 1.1 Cardiac Markers: Recent Labs Component Name 08/17/24 0407 08/16/24 1034 CKTOTAL 1,786* 5,864* Micro: Microbiology Results (Displays last 21 days for this encounter ONLY) Procedure Component Value - Date/Time CULTURE BLOOD [[id number]] Collected: 08/16/242032 Lab Status: In process Specimen: Blood Peripheral Updated: 08/16/242038 CULTURE BLOOD [[id number]] Collected: 08/16/242014 Lab Status: In process Specimen: Blood Peripheral Updated: 08/16/242038 CULTURE URINE [[id number]] (Normal) Collected: 08/16/24 194 Lab Status: Preliminary result Specimen: Urine Clean Catch Updated: 08/17/24 1406 Culture Urine No growth (<100 CFU/mL) CULTURE SPUTUM+GRAM STAIN [[id number]] Lab Status: No result Specimen: Microbiology from Sputum Imaging: Imaging reviewed. Assessment: Shock (HCC) (POA: Yes) Fall (on) (from) other stairs and steps, initial encounter (POA: Yes) Hiatal hernia (POA: Yes) Aspiration pneumonitis (HCC) (POA: Yes) Chronic back pain (POA: Yes) Hypothyroidism (POA: Yes) Rhabdomyolysis (POA: Yes) PRIYANKA (acute kidney injury) (HCC) (POA: Yes) Lactic acidosis (POA: Yes) Acute encephalopathy (POA: Yes) Common bile duct dilation (POA: Yes) COPD (chronic obstructive pulmonary disease) (HCC) (POA: Yes) Tobacco abuse (POA: Yes) History of lumbar laminectomy (POA: Yes) Leukocytosis (POA: Yes) GERD (gastroesophageal reflux disease) (POA: Yes) PLAN: Neurological: #Acute encephalopathy, resolved Likely secondary to shock/acidosis versus polypharmacy/morphine toxicity. B12 and TSH also mildly low - Hold home flexeril given elevated TCA level - Treatment of hypothyroidism as below, unclear if he was compliant with home medications #Chronic back pain - Continue home [place] 10-325 mg PRN, duloxetine 60 mg daily, and gabapentin 300 mg BID #Depression/anxiety - Continue home fluoxetine 20 mg daily, traxodone 100 mg qhs Cardiovascular: #Shock, resolved Likely hypovolemic vs less likely septic. Briefly required levophed for pressor support. Blood and urine cx without growth. CXR with consolidations. 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 CT chest concerning for aspiration and LLL consolidation - Continue abx as below - Duonebs q4h PRN - Aspiration precautions GI: #Dilated common bile duct with intrahepatic biliary dilation #Hiatal hernia No acute inpatient needs, asymptotic - Consider outpatient MRCP - Continue home pantoprazole Renal: #PRIYANKA, improving #Rhabdomyolysis, improving #Lactic acidosis, resolved FeNa intrinsic, CK elevated on arrival, unknown downtime - Continue maintenance LR at 75 ml/hr - Trend CK - Monitor UOP Endocrine: #Hypothyroidism TSH mildly low on arrival, unsure of medication compliance - Resume home levothyroxine 50 mcg daily ID: #Aspiration pneumonia - Continue Ceftriaxone for tentative 5 day course Heme/Onc: No acute concerns FEN: -Monitor electrolytes QD, Replace K<4, Mg<2, Phos<3 Lines: PIV Prophylaxis: GI prophyalxis w/ pantoprazole DVT prophyalxis w/ SCDs, Heparin Diet: Regular Activity: Activity at eugenio Disposition: Transfer to floor Code Status: Full Melissa Schulz DO CREAM MACHINE OPERATOR Associated attestation - Cresencio Berry MD - 08/17/2024 9:05 PM 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 I have seen and examined the patient with the resident and I agree with the findings and plan of care as documented by the resident. Date of Service: 08/17/2024 Cresencio Berry MD * Shen Callahan MD - 08/17/2024 3:38 PM CST [facility] - Tertiary Survey Progress Note Time: 3:38 PM 3:38 PM 3:38 PM Physical Exam HEENT [place] Coma Scale: 15 Scalp: No injury noted Face: No injury noted Eyes: No injury noted Ears: No injury noted Nose: No injury noted Mouth: No injury noted Neck: No injury noted Comments: Thorax No injury noted Abdomen No injury noted Pelvis/ Perineum Rectal Pelvis/Perineum No injury noted Back No injury noted Extremities LUE: No injury noted RUE: No injury noted LLE: No injury noted RLE: No injury noted Neuro- vascular Pulses Right Left Carotid 2+ Normal 2+ Normal Radial 2+ Normal 2+ Normal Femoral 2+ Normal 2+ Normal Posterior Tibial 2+ Normal 2+ Normal Dorsalis Pedis 2+ Normal 2+ Normal Motor/Sensory Exam LUE 0=No drift, limb holds 90 (or 45) degrees for full 10 seconds RUE 0=No drift, limb holds 90 (or 45) degrees for full 10 seconds LLE 0=No drift, limb holds 90 (or 45) degrees for full 10 seconds RLE 0=No drift, limb holds 90 (or 45) degrees for full [address] Scans/ CT Angio Lower Extremity Left Result Date: 08/16/2024 IMPRESSION: Three-vessel runoff of bilateral lower extremity arteries to the level of ankle. Of note, the dorsalis pedis and tibialis posterior arteries are diminutive bilaterally likely secondary todiffuse spasm but patent without evidence of contrast extravasation to suggest arterial injury or active bleeding. > Dictated by Felix Awad MD (administrative resident). Viviana Brizuela MD havepersonally reviewed and interpreted this examination/study. > Interpreting Provider: Viviana Rain MD on 08/16/2024 5:[address] Angio Lower Extremity Right Result Date: 08/16/2024 IMPRESSION: Three-vessel runoff of bilateral lower extremity arteries to the level of ankle. Of note, the dorsalis pedis and tibialis posterior arteries are diminutive bilaterally likely secondary todiffuse spasm but patent without evidence of contrast extravasation to suggest arterial injury or active bleeding. > Dictated by Felix Awad MD (administrative resident). Viviana Brizuela MD havepersonally reviewed and interpreted this examination/study. > Interpreting Provider: Viviana Rain MD on 08/16/2024 5:[address] CHEST ABDOMEN PELVIS W CONT - Abdomen-pelvis trauma, blunt or penetrating Result Date: 08/16/2024 Impression 1. No acute visceral, vascular, or [...] gastroesophageal reflux/esophagitis. Report dictated by Bryon Watson MD(administrative resident). Viviana Brizuela MD have personally reviewed and interpreted this examination/study. > Interpreting Provider: Viviana Rain MD on 08/16/2024 5:01 PM XR PELVIS 1 OR 2VW Result Date: 08/16/2024 IMPRESSION: No acute displaced fracture or dislocation of pelvis is identified. Report dictated by Rafi Vicente MD (administrative resident). Mason Brizuela have personally reviewed and interpreted this examination/study. > Interpreting Provider: Mason Lucero on 08/16/2024 3:[address] HEAD WO CONTRAST - Head Trauma, CSF leak, mental status changes Result Date: 08/16/2024 IMPRESSION: 1.No acute intracranial hemorrhage, midline shift, [...] findings. Report dictated by Rafi Vicente MD (administrative resident). Ruby Brizuela MD have personally reviewed and interpreted this examination/study. > Interpreting Provider: Ruby Villanueva MD on 08/16/2024 10:[address] CERVICAL SPINE WO CONTRAST - C-Spine Trauma, Spine fracture Result Date: 08/16/2024 IMPRESSION: 1.No acute intracranial hemorrhage, midline shift, [...] findings. Report dictated by Rafi Vicente MD (administrative resident). Ruby Brizuela MD have personally reviewed and interpreted this examination/study. > Interpreting Provider: Ruby Villanueva MD on 08/16/2024 10:[address] THORACIC SPINE WO CONTRAST - T/L-spine trauma, spine fracture Result Date: 08/16/2024 IMPRESSION: 1.No acute intracranial hemorrhage, midline shift, [...] findings. Report dictated by Rafi Vicente MD (administrative resident). Ruby Brizuela MD have personally reviewed and interpreted this examination/study. > Interpreting Provider: Ruby Villanueva MD on 08/16/2024 10:[address] LUMBAR SPINE WO CONTRAST - T/L-spine trauma, Spine fracture Result Date: 08/16/2024 IMPRESSION: 1.No acute intracranial hemorrhage, midline shift, [...] findings. Report dictated by Rafi Vicente MD (administrative resident). Ruby Brizuela MD have personally reviewed and interpreted this examination/study. > Interpreting Provider: Ruby Villanueva MD on 08/16/2024 10:30 AM Consults Neurosurgery: No acute intervention Diagnosis Comments/ Clinical Plan Shen Callahan MD 08/17/2024 3:38 PM CREAM MACHINE OPERATOR * Leydi Sifuentes RN - 08/17/2024 12:48 PM CST Care Coordination Initial Assessment Expected Discharge Date: 08/21/2024 Expected Discharge Disposition: (P) Home Health Services Transportation at Discharge: (P) Family Prior Level of Care: (P) Home Prior to Admit Provider: Comments: CM met with pt/Dtr/LUZ MARIA at bedside. CM verified address/phone/PCP. Pt comes from home withSO. Pt drives, has cane and shower chair and is independent with ADLs at baseline. Family will provide pt transportation upon DC. Pt has never utilized HH/SNF/Rehab and is not opposed if needed. Lives with: (P) Spouse/Significant Other Physical Limitations: (P) Ambulation with use of DME Requires Assistance With: (P) None Preferred Pharmacy: No Pharmacies Listed READMISSION RISK SCORE is 13 at 12:48 PM 08/17/2024. Met with patient and daughter Family Support (name and phone): Extended Emergency Contact Information Primary Emergency Contact: Junie Farris Mobile Relation: Significant other Preferred language: Kiswahili Event Marketing Specialist needed? No Secondary Emergency Contact: Isela Townsend Mobile Relation: Daughter Patient or novelties sales representative requests care coordination reach out to family or caregiver listed above regarding discharge planning and at time of discharge? Yes Actual Level of Care/Dispostion Details Calliope Player Referral: No Will continue to follow. For any questions or needs please contact: Telemarketing Supervisor/Social Work Name/Phone number: Leydi Sifuentes RN CREAM MACHINE OPERATOR * Misbah Antunez MD - 08/16/2024 10:06 PM CST C-collar cleared at bedside. No evidence of fracture on CT. No pain to palpation. No pain with flexion, extension or rotation. Misbah Antunez MD 08/16/2024 11:30 PM CREAM MACHINE OPERATOR * Cristóbal Mtz MD - 08/16/2024 9:17 AM CST Trauma Chief Resident Plan of Care Full note to follow. Briefly this is a 69M who presents after a GLF down estimated 10 stairs. Trauma occurred sometime the day prior during afternoon (1200 to 1700). Did not immediately seek care butfamily noticed he seemed more confused and had a new tremor/twitching which prompted presentation to [facility]. Per report there was concern for cervical spine injury although patient came with no imaging or reads. There was also concern for neurogenic shock and he was started on levo. Transferred to [facility] for further work-up. On arrival he is on 0.11 of levo with SBP in 120s. Complaining of pain in his cervical spine. Unable to doppler PT/DP in BLE with cool extremities. AOx3. Injuries Age indeterminate anterior compression fx of L3, likely chronic Incidentals Fluid in R mainstem bronchus consistent with aspiration Concern for LLL pneumonia Dilated CBD with intrahepatic biliary dilatation Moderate hiatal hernia with fluid filled esophagus and wall thickening Noncalcified atherosclerosis or clot in posterior descending thoracic aorta DP and PT diminutive bilaterally likely related to spasm Will discuss patient with NSGY. Suspect this is likely chronic. No other traumatic injuries identified. May require additional medical work-up given elevated creatinine and likely aspiration associated pneumonia. Patient and plan discussed with my attending physician, Dr. Gonzalez. Cristóbal Mtz MD General Surgery Resident, PGY-4 08/16/2024 9:18 AM CREAM MACHINE OPERATOR * Allie Beck - 08/16/2024 5:25 AM CST Trauma 2 Windshield Repair Technician received an [employer] message: Trauma 2; Age 69; Male; fall 10 steps; Cspine fx Windshield Repair Technician was in trauma bay when the message was received. Pt was transported by [facility] as a transfer from [facility] in [place], [place]. EMS reports Pt fell sometime between noon and 5pm yesterday, 08/15 and was taken to [place] at that time. Pt's and daughter, were at the OSH and following to [facility]. Pastoral care is available 25/03. Please call [phone] if requested or needed. T01/T01 CREAM MACHINE OPERATOR documented in this encounter H&P Notes * Kay Isidro MD - 08/19/2024 9:19 AM CST PRE-PROCEDURE HISTORY & PHYSICAL NOTE 08/19/2024 9:19 AM Patient: Ray Ashley, date of 1955 Procedure(s) planned: Other EUS Indication(s): Other: CBDD History: Patient Active Problem List Diagnosis Date Noted Shock (HCC) 08/16/2024 Priority: Not Prioritized Fall (on) (from) other stairs and steps, initial encounter 08/16/2024 Priority: Not Prioritized Hiatal hernia 08/16/2024 Priority: Not Prioritized Aspiration pneumonitis (HCC) 08/16/2024 Priority: Not Prioritized Chronic back pain 08/16/2024 Priority: Not Prioritized Hypothyroidism 08/16/2024 Priority: Not Prioritized Rhabdomyolysis 08/16/2024 Priority: Not Prioritized PRIYANKA (acute kidney injury) ([facility]) 08/16/2024 Priority: Not Prioritized Lactic acidosis 08/16/2024 Priority: Not Prioritized Acute encephalopathy 08/16/2024 Priority: Not Prioritized Common bile duct dilation 08/16/2024 Priority: Not Prioritized COPD (chronic obstructive pulmonary disease) ([facility]) 08/16/2024 Priority: Not Prioritized Tobacco abuse 08/16/2024 Priority: Not Prioritized History of lumbar laminectomy 08/16/2024 Priority: Not Prioritized Leukocytosis 08/16/2024 Priority: Not Prioritized GERD (gastroesophageal reflux disease) 08/16/2024 Priority: Not Prioritized Past Surgical History: Procedure Laterality Date Lumbar Laminectomy Allergies Allergen Reactions Nsaids Unknown, GI Discomfort and Shortness of Breath Prednisone Unknown and Shortness of Breath Family History Family history unknown: Yes No current facility-administered medications on file prior to encounter. Current Outpatient Medications on File Prior to Encounter Medication Sig Dispense Refill acetaminophen-codeine (Tylenol #4) 300-60 MG tablet Take 1 (one) tablet by mouth every 6 hours as needed for Pain cyclobenzaprine (Flexeril) 10 MG tablet Take 1 (one) tablet by mouth 2 times daily as needed DULoxetine (Cymbalta) 60 MG capsule Take 1 (one) capsule by mouth once daily FLUoxetine (PROzac) 20 MG capsule Take 3 (three) capsules by mouth once daily gabapentin (Neurontin) 300 MG capsule Take 1 (one) capsule by mouth 2 times daily levothyroxine (Synthroid) 50 MCG tablet Take 1 (one) tablet by mouth once daily lisinopril (Prinivil; Zestril) 20 MG tablet Take 1 (one) tablet by mouth once daily morphine IR (MSIR) 30 MG tablet Take 1 (one) tablet by mouth 3 times daily as needed pantoprazole EC (Protonix) 40 MG tablet Take 1 (one) tablet by mouth every morning traZODone (Desyrel) 100 MG tablet Take 1 (one) tablet by mouth once Current Facility-Administered Medications Medication 0.9% NaCl injection 3 mL And 0.9% NaCl injection 1-10 mL albuterol-ipratropium (Duo-Neb) nebulizer solution 3 mL azithromycin (Zithromax) tablet 500 mg cefTRIAXone (Rocephin) syringe 2,000 mg [Held by Provider] cyclobenzaprine (Flexeril) tablet 10 mg dextrose IV 12.5 g Or dextrose IV 25 g Or glucagon (Glucagen) injection 1 mg DULoxetine (Cymbalta) capsule 60 mg gabapentin (Neurontin) capsule 300 mg glucose (Diabetic Use) oral gel heparin injection 5,000 Units HYDROcodone-acetaminophen ([place]) 10-325 MG tablet 1 tablet levothyroxine (Synthroid) tablet 50 mcg lidocaine (Lidoderm) 5 % patch 1 patch lisinopril (Prinivil; Zestril) tablet 20 mg magnesium sulfate 2 g in 50 mL bolus [Held by Provider] morphine IR (MSIR) tablet 30 mg pantoprazole EC (Protonix) tablet 40 mg potassium - sodium phosphates (Phos-Nak) powder 1 packet potassium chloride 40 mEq in 270 mL bolus senna (Senokot) tablet 8.6 mg traZODone (Desyrel) tablet 100 mg Review of systems: Constitutional: negative for fevers, chills, fatigue and malaise, no recent weight loss Respiratory: denies shortness of breath Cardiovascular: denies chest pain Gastrointestinal: negative for nausea, vomiting, diarrhea, abdominal pain Physical Exam: BP 164/80 (BP Location: Left arm, Patient Position: Sitting) Pulse 65 Temp 98.2 ??F (36.8 ??C) (Oral) Resp 16 Ht 1.829 m (6') Wt 74.5 kg (164 lb 3.2 oz) SpO2 94% General appearance: alert, oriented, pleasant, in NAD, no asterexis Skin: Skin color, texture, turgor normal, no rashes, no spider angiomas Eyes: Anicteric sclera Lungs: CTAB, no wheezing or rhonchi Heart: RRR Abdomen: Soft, non-tender, non distended. Bowel sounds normal. No masses, organomegaly Extremities: No LE edema, or skin discoloration. Good capillary refill. Mallampati: 2 ASA score: 3 Lab Results Component Value Date/Time HGB 11.3 (L) 08/19/2024 07:43 AM INR 1.1 08/18/2024 06:40 AM CREATININE 0.83 08/19/2024 07:43 AM Sedation Plan: Monitored Anesthesia Care (MAC) by the anesthesia team. Procedure Plan: Based on the above assessment, we will perform the procedures indicated above. I have discussed the plan, risks, benefits and alternatives with the patient or guardian. When assessment above was not obtained immediately before the procedure, I have reassessed this patient and there are no changes. Kay Isidro MD Gastroenterology & Hepatology Fellow Division of Gastroenterology and Hepatology [facility] CREAM MACHINE OPERATOR * Raul Majano, DO - 08/16/2024 11:13 PM CST Medical ICU Attending Note I have seen and examined the patient with the MICU resident/fellow. I provided this patient with direct intervention and supervision necessary to prevent life- threatening deterioration related to thepatient's presenting illness. I personally spent critical care time involving highly complex decision-making to assess, support, and treat multiple organ systems. HPI: In brief, Ray Ashley is a 69 year old male with history of COPD, tobacco abuse (25+ pack years), chronic back pain with prior L3-L4 laminectomy and posterior spinal fusion (1996) who initially presented to [facility] on 08/16/24 after a fall down the stairs (10 steps) the day prior and didnot seek immediate care, but started to get more confused with twitching which prompted ED visit. Was hypotensive with concern for neurogenic shock, requiring pressors. Transferred to [facility] for traumaevaluation. CTA BLE showed dimunitive DP and TP arteries likely due to vasospasm but no active extravasation. CT CAP showed fluid in right mainstem bronchus consistent with aspiration, LLL consolidation, dilated common bile duct with intrahepatic biliary dilatation, and moderate hiatal hernia. CT head non-acute. CT CTL spine showed anterior compression fracture deformity of L3 favored to be chronic. Neurosurgery recommended no acute surgical intervention. Trauma evaluated the patient and recommended MICU admission as no acute traumatic injuries. Started on 2.5 liter IV bolus, LR infusion, ceftriaxone, and metronidazole prior to MICU admission. On my evaluation, patient is on room air. Still in C-collar. Patient is now A&Ox3. Patient states he has had dizziness and fell. PMH: reviewed in [facility] Allergies: reviewed in [facility] Past Surgical History: Procedure Laterality Date Lumbar Laminectomy Social history: reviewed in [facility] Family History Family history unknown: Yes Physical Exam: BP (!) 71/43 Pulse 81 Temp 99.1 ??F (37.3 ??C) (Oral) Resp (!) 8 Ht 1.829 m (6') Wt 68 kg(150 lb) SpO2 98% Estimated body mass index is 20.34 kg/m?? as calculated from the following: Height as of this encounter: 1.829 m (6'). Weight as of this encounter: 68 kg (150 lb). General: NAD, on room air HEENT: NC/AT, non-icteric, EOMI, in C-collar Heart: RRR, no murmurs Lungs: CTAB, no wheezing or crackles Abdomen: soft, NT, ND, nl BS Ext: no BLE edema, good pulses Neuro: AOx3, no focal deficits, 5/5 motor strength in BUE and BLE Skin: no rashes Intake/Output Summary (Last 24 hours) at 08/16/2024 2313 Last data filed at 08/16/2024 2146 Gross per 24 hour Intake 2164.73 ml Output 1000 ml Net 1164.73 ml Data: I have personally reviewed the pertinent labs and imaging. CBC: Recent Labs Component Name 08/16/24190408/16/24 0550 WBC 9.3 17.4* HGB 13.7 14.5 HCT 40.1 43.5 BMP: Recent Labs Component Name 08/16/24 19008/16/24 1034 08/16/24 0550 NA 141 138 136 CL 110* 101 104 CO2 21* 14* 14* BUN 46* 54* 49* CREATININE 2.85* 5.58* 5.74* CALCIUM 7.9* 7.8* 7.8* PHOS 4.1 - - ABGs: No results for input(s): PHART , PO2ART , [id number] , BEART in the last 80400 hours. Imaging Reviewed: CT Angio Lower Extremity Left Result Date: 08/16/2024 IMPRESSION: Three-vessel runoff of bilateral lower extremity arteries to the level of ankle. Of note, the dorsalis pedis and tibialis posterior arteries are diminutive bilaterally likely secondary todiffuse spasm but patent without evidence of contrast extravasation to suggest arterial injury or active bleeding. > Dictated by Felix Awad MD (administrative resident). Viviana Brizuela MD havepersonally reviewed and interpreted this examination/study. > Interpreting Provider: Viviana Rain MD on 08/16/2024 5:[address] Angio Lower Extremity Right Result Date: 08/16/2024 IMPRESSION: Three-vessel runoff of bilateral lower extremity arteries to the level of ankle. Of note, the dorsalis pedis and tibialis posterior arteries are diminutive bilaterally likely secondary todiffuse spasm but patent without evidence of contrast extravasation to suggest arterial injury or active bleeding. > Dictated by Felix Awad MD (administrative resident). Viviana Brizuela MD havepersonally reviewed and interpreted this examination/study. > Interpreting Provider: Viviana Rain MD on 08/16/2024 5:[address] CHEST ABDOMEN PELVIS W CONT - Abdomen-pelvis trauma, blunt or penetrating Result Date: 08/16/2024 Impression 1. No acute visceral, vascular, or [...] gastroesophageal reflux/esophagitis. Report dictated by Bryon Watson MD(administrative resident). Viviana Brizuela MD have personally reviewed and interpreted this examination/study. > Interpreting Provider: Viviana Rain MD on 08/16/2024 5:01 PM XR PELVIS 1 OR 2VW Result Date: 08/16/2024 IMPRESSION: No acute displaced fracture or dislocation of pelvis is identified. Report dictated by Rafi Vicente MD (administrative resident). Mason Brizuela have personally reviewed and interpreted this examination/study. > Interpreting Provider: Mason Lucero on 08/16/2024 3:[address] HEAD WO CONTRAST - Head Trauma, CSF leak, mental status changes Result Date: 08/16/2024 IMPRESSION: 1.No acute intracranial hemorrhage, midline shift, [...] findings. Report dictated by Rafi Vicente MD (administrative resident). Ruby Brizuela MD have personally reviewed and interpreted this examination/study. > Interpreting Provider: Ruby Villanueva MD on 08/16/2024 10:[address] CERVICAL SPINE WO CONTRAST - C-Spine Trauma, Spine fracture Result Date: 08/16/2024 IMPRESSION: 1.No acute intracranial hemorrhage, midline shift, [...] findings. Report dictated by Rafi Vicente MD (administrative resident). Ruby Brizuela MD have personally reviewed and interpreted this examination/study. > Interpreting Provider: Ruby Villanueva MD on 08/16/2024 10:[address] THORACIC SPINE WO CONTRAST - T/L-spine trauma, spine fracture Result Date: 08/16/2024 IMPRESSION: 1.No acute intracranial hemorrhage, midline shift, [...] findings. Report dictated by Rafi Vicente MD (administrative resident). Ruby Brizuela MD have personally reviewed and interpreted this examination/study. > Interpreting Provider: Ruby Villanueva MD on 08/16/2024 10:[address] LUMBAR SPINE WO CONTRAST - T/L-spine trauma, Spine fracture Result Date: 08/16/2024 IMPRESSION: 1.No acute intracranial hemorrhage, midline shift, [...] findings. Report dictated by Rafi Vicente MD (administrative resident). Ruby Brizuela MD have personally reviewed and interpreted this examination/study. > Interpreting Provider: Ruby Villanueva MD on 08/16/2024 10:30 AM Assessment: Shock (HCC) (POA: Yes) Fall (on) (from) other stairs and steps, initial encounter (POA: Yes) Hiatal hernia (POA: Yes) Aspiration pneumonitis (HCC) (POA: Yes) Chronic back pain (POA: Yes) Hypothyroidism (POA: Yes) Rhabdomyolysis (POA: Yes) PRIYANKA (acute kidney injury) (HCC) (POA: Yes) Lactic acidosis (POA: Yes) Acute encephalopathy (POA: Yes) Common bile duct dilation (POA: Yes) COPD (chronic obstructive pulmonary disease) (HCC) (POA: Yes) Tobacco abuse (POA: Yes) History of lumbar laminectomy (POA: Yes) Leukocytosis (POA: Yes) GERD (gastroesophageal reflux disease) (POA: Yes) Plan: Neuro: # Acute encephalopathy, due to shock/acidosis versus polypharmacy/morphine toxicity # History of chronic back pain with L3-L4 laminectomy and posterior spinal fusion (1996) # ?Elevated TCA levels, low suspicion for TCA toxicity, possible due to flexeril use (can cause false positive) # Depression/anxiety - Resume home fluoxetine 20 mg daily, traxodone 100 mg qhs - On home [place] 10-325 mg PRN, duloxetine 60 mg daily, and gabapentin 300 mg BID - Hold home flexeril 10 mg TID PRN, can cause falsely elevated TCA levels - If another muscle relaxer needed, start PRN robaxin - Not on any TCA medications at home - F/U B12, RPR, and TSH - Check expanded UDS - Currently in C-collar, will get on-call spine for C-collar clearance Pulm/ID: # Aspiration pneumonia/pneumonitis # COPD with emphysema, 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 # Tobacco abuse (25+ pack years) - Goal SpO2 >88%, currently on room air - Duonebs q4h PRN - Continue ceftriaxone 2 g daily for now; discontinue metronidazole - F/U urine and blood cultures - HOB>30, monitor for respiratory distress Cardiac: # Shock, possibly hypovolemic - Continue levophed, goal MAP >65; currently weaning down - s/p 2.5 liter IVF bolus - Continue maintenance LR at 250 cc/hr - Discontinue bicarb gtt for now as low suspicion for TCA toxicity - EKG shows sinus tachycardia, will check serial EKGs q4h - TTE in 2021 unremarkable; repeat TTE ordered GI: # Dilated common bile duct with intrahepatic biliary dilatation # Hiatal hernia - Consider F/U MRCP imaging, can be done as outpatient - Continue home protonix - Bowel regimen: Senna S - Nutrition: Orders Placed This Encounter Procedures DIET REGULAR Standing Status: Standing Number of Occurrences: 1 Order Specific Question: Tray Type: Answer: SELF SELECT Renal: # PRIYANKA, intrinsic (rhabdo versus prerenal/ATN) # Mild rhabdomyolysis # Lactic acidosis # HAGMA due to uremia and lactic acidosis - s/p 2.5 liter IVF bolus - Continue LR at 250 cc/hr - FeNa intrinsic - Trend CK - Monitor UOP Hematology: # Leukocytosis, reactive - Monitor H&H. Transfuse if Hb < 7 Endo: # Hypothyroidism - Continue levothyroxine 50 mcg daily - Monitor sugars, goal 140-180. DVT ppx: heparin SQ GI ppx: protonix Lines: Peripheral IV Anterior;Left Forearm (Active) Placement Date: 08/16/24 Size (Gauge): 20 G Orientation: Anterior;Left Location: Forearm Number of days: 0 Peripheral IV Left Antecubital (Active) Placement Date/Time: 08/16/24 06 Size (Gauge): 20 G Orientation: Left Location: Antecubital Technique: Ultrasound Guidance Number of days: 0 Peripheral IV Anterior;Proximal;Right Forearm (Active) Placement Date/Time: 08/16/241950 Size (Gauge): 20 G Orientation: Anterior;Proximal;Right Location: Forearm Number of days: 0 Code status: Full Dispo: ICU monitoring Total Critical Care Time: 32 minutes Patient is at high risk for complications and morbidity or mortality. Patient is critically ill with vital organ impairment or failure. There is high probability of imminent or life threatening deterioration in the patient's condition. Time involved in the performance of separately billable procedures, teaching, reviewing education material was not counted towards critical care time. Date of service: 08/16/2024 Raul Majano D.O. Rubber Thread Spoolerunderground production foreperson Division of Pulmonary, Critical Care, and Sleep Medicine [facility] Pager: [phone] CREAM MACHINE OPERATOR * Christopher Ayala MD - 08/16/2024 8:38 PM CST MICU History & Physical Note Patient: Ray Ashley (:1955) Room: [facility] [place] Admit Date: 08/16/2024. Hospital Day: 1 CC: Fall HPI: Ray Ashley is 69 year old male with history of hypothyroidism, COPD, HTN, prior L3-4 PSF s/p laminectomy on 1996, chronic back pain admitted on 08/16/2024 for undifferentiated shock requiring pressors. Patient initially presented to [facility] after a GLF, developed hypotension on the ED and there was concerns for neurogenic shock so patient was transferred here for further care and neurosurgery evaluation. On arrival vital sings were remarkable for hypotension, otherwise WNL, CTH and spine which was negative for fracture, NSGY recommended no acute intervention. Labs remarkable for elevated levels of TCA, CK and Scr. ABG showed pH of 7.29 Patient responded to orientation questions appropriately, although earlier in the day patient seemed to be more confused. Upon questioning he endorsed falling after helping with his carrying heavy bags. State he felt dizzy and fell, denies waking up confused or losing sphincters function. State nobody saw him. Denied other prodromal symptoms. During interview patient was slow at answering questions and seemed somewhat confused although was answering appropriately. He does not what medications he is taking, although state he took his usual dose of morphine during the morning and otherwisereview of system was negative. Past Medical History Past Medical History: Diagnosis Date Chronic back pain COPD (chronic obstructive pulmonary disease) ([facility]) Essential (primary) hypertension Hypothyroidism Neuropathy Past Surgical History Past Surgical History: Procedure Laterality Date Lumbar Laminectomy Social History Family History Family History Family history unknown: Yes Allergies Allergies Allergen Reactions Nsaids Unknown, GI Discomfort and Shortness of Breath Prednisone Unknown and Shortness of Breath Home Medications Current Outpatient Medications Medication Instructions acetaminophen-codeine (Tylenol #4) 300-60 MG tablet 1 tablet, Oral, EVERY 6 HOURS PRN cyclobenzaprine (FLEXERIL) 10 mg, Oral, 2 TIMES DAILY PRN DULoxetine (CYMBALTA) 60 mg, Oral, DAILY FLUoxetine (PROZAC) 60 mg, Oral, DAILY gabapentin (NEURONTIN) 300 mg, Oral, 2 TIMES DAILY levothyroxine (SYNTHROID) 50 mcg, Oral, DAILY lisinopril (PRINIVIL; ZESTRIL) 20 mg, Oral, DAILY morphine IR (MSIR) 30 mg, Oral, 3 TIMES DAILY PRN pantoprazole EC (PROTONIX) 40 mg, Oral, EVERY MORNING traZODone (DESYREL) 100 mg, Oral, ONCE Review of Systems positives are in bold; negatives are in italics Constitutional: fevers, chills, sweats, fatigue, weight loss/gain, chronic pain HEENT: head trauma, vision/hearing/voice changes, eye/ear/throat pain, nasal discharge, dysphagia, sores, ulcers, sinus pain Respiratory: cough, hemoptysis, sputum, [place], dyspnea at rest, PND, wheezing Cardiovascular: chest pain/discomfort, palpitations, lower extremity edema, calf/leg pain Gastrointestinal: nausea/vomiting, diarrhea, constipation, melena, abdominal pain Genitourinary: dysuria, urgency, frequency, incontinence, hematuria Integument: rash, ulcers, itching Hematologic/lymphatic: easy bruising, bleeding Musculoskeletal: myalgias, arthralgias Neurological: headaches, dizziness, numbness, tingling, seizures Behavioral/Psych: anxiety, depression, memory problems Endocrine: polyuria, polydipsia, polyphagia, heat/cold intolerance Objective: Vitals: 08/16/24199908/16/24 2100 08/16/24 2200 08/16/24 2300 BP: 100/68 109/65 120/90 109/74 Pulse: 98 92 88 84 Resp: 14 9 12 13 Temp: 99.9 ??F (37.7 ??C) SpO2: 96% 97% 94% 95% Weight: Height: Intake/Output Summary (Last 24 hours) at 08/17/2024 0026 Last data filed at 08/17/2024 0000 Gross per 24 hour Intake 3092.03 ml Output 1625 ml Net 1467.03 ml Physical Exam General - NAD, afebrile, non cachectic HEENT - NC/AT, EOMI, clear conjunctivae, throat without erythema or exudate, moist mucous membranes Neck - Supple, no LAD, no JVD Chest - Crackles on right lung posteriorly, otherwise clear, no wheezes bilaterally CV - RRR no murmurs, radial and DP pulses 2/4, good capillary refill Abdomen - Soft, NT/ND, +BS, no organomegaly Musculoskeletal - Moves all four extremities Extremities - No c/c/e Skin - No rashes, lesions or jaundice Neurologic - A&O x 3, no focal neurological deficits Psych - Appropriate mood and affect Labs: CBC: Recent Labs Component Name 08/16/24190408/16/24 0550 WBC 9.3 17.4* HGB 13.7 14.5 HCT 40.1 43.5 BMP: Recent Labs Component Name 08/16/24190408/16/24 1034 08/16/24 0550 NA 141 138 136 CL 110* 101 104 CO2 21* 14* 14* BUN 46* 54* 49* CREATININE 2.85* 5.58* 5.74* CALCIUM 7.9* 7.8* 7.8* PHOS 4.1 - - Hepatic: Recent Labs Component Name 08/16/24190408/16/24 0852 ALT 48 41 AST 87* 78* TBILI 0.5 0.4 PROT 5.7* 5.7* ALB 2.7* 2.7* ALKPHOS 63 64 Coagulation: Recent Labs Component Name 08/16/24 0550 PT 14.3 INR 1.1 Cardiac Markers: Recent Labs Component Name 08/16/24 1034 CKTOTAL 5,864* ABGs: No results for input(s): PHART , PO2ART , HYV5UXB , BEART in the last 81618 hours. Micro: Imaging: CT Angio Lower Extremity Left Result Date: 08/16/2024 IMPRESSION: Three-vessel runoff of bilateral lower extremity arteries to the level of ankle. Of note, the dorsalis pedis and tibialis posterior arteries are diminutive bilaterally likely secondary todiffuse spasm but patent without evidence of contrast extravasation to suggest arterial injury or active bleeding. > Dictated by Felix Awad MD (administrative resident). Viviana Brizuela MD havepersonally reviewed and interpreted this examination/study. > Interpreting Provider: Viviana Rain MD on 08/16/2024 5:[address] Angio Lower Extremity Right Result Date: 08/16/2024 IMPRESSION: Three-vessel runoff of bilateral lower extremity arteries to the level of ankle. Of note, the dorsalis pedis and tibialis posterior arteries are diminutive bilaterally likely secondary todiffuse spasm but patent without evidence of contrast extravasation to suggest arterial injury or active bleeding. > Dictated by Felix Awad MD (administrative resident). Viviana Brizuela MD havepersonally reviewed and interpreted this examination/study. > Interpreting Provider: Viviana Rain MD on 08/16/2024 5:[address] CHEST ABDOMEN PELVIS W CONT - Abdomen-pelvis trauma, blunt or penetrating Result Date: 08/16/2024 Impression 1. No acute visceral, vascular, or [...] gastroesophageal reflux/esophagitis. Report dictated by Bryon Watson MD(administrative resident). Viviana Brizuela MD have personally reviewed and interpreted this examination/study. > Interpreting Provider: Viviana Rain MD on 08/16/2024 5:01 PM XR PELVIS 1 OR 2VW Result Date: 08/16/2024 IMPRESSION: No acute displaced fracture or dislocation of pelvis is identified. Report dictated by Rafi Vicente MD (administrative resident). Mason Brizuela have personally reviewed and interpreted this examination/study. > Interpreting Provider: Mason Lucero on 08/16/2024 3:[address] HEAD WO CONTRAST - Head Trauma, CSF leak, mental status changes Result Date: 08/16/2024 IMPRESSION: 1.No acute intracranial hemorrhage, midline shift, [...] findings. Report dictated by Rafi Vicente MD (administrative resident). Ruby Brizuela MD have personally reviewed and interpreted this examination/study. > Interpreting Provider: Ruby Villanueva MD on 08/16/2024 10:[address] CERVICAL SPINE WO CONTRAST - C-Spine Trauma, Spine fracture Result Date: 08/16/2024 IMPRESSION: 1.No acute intracranial hemorrhage, midline shift, [...] findings. Report dictated by Rafi Vicente MD (administrative resident). Ruby Brizuela MD have personally reviewed and interpreted this examination/study. > Interpreting Provider: Ruby Villanueva MD on 08/16/2024 10:[address] THORACIC SPINE WO CONTRAST - T/L-spine trauma, spine fracture Result Date: 08/16/2024 IMPRESSION: 1.No acute intracranial hemorrhage, midline shift, [...] findings. Report dictated by Rafi Vicente MD (administrative resident). I, Ruby Villanueva MD have personally reviewed and interpreted this examination/study. > Interpreting Provider: Ruby Villanueva MD on 08/16/2024 10:[address] LUMBAR SPINE WO CONTRAST - T/L-spine trauma, Spine fracture Result Date: 08/16/2024 IMPRESSION: 1.No acute intracranial hemorrhage, midline shift, [...] findings. Report dictated by Rafi Vicente MD (administrative resident). Ruby Brizuela MD have personally reviewed and interpreted this examination/study. > Interpreting Provider: Ruby Villanueva MD on 08/16/2024 10:30 AM Assessment: Shock (HCC) (POA: Yes) Fall (on) (from) other stairs and steps, initial encounter (POA: Yes) Hiatal hernia (POA: Yes) Aspiration pneumonitis (HCC) (POA: Yes) Chronic back pain (POA: Yes) Hypothyroidism (POA: Yes) Rhabdomyolysis (POA: Yes) PRIYANKA (acute kidney injury) (HCC) (POA: Yes) Lactic acidosis (POA: Yes) Acute encephalopathy (POA: Yes) Common bile duct dilation (POA: Yes) COPD (chronic obstructive pulmonary disease) (HCC) (POA: Yes) Tobacco abuse (POA: Yes) History of lumbar laminectomy (POA: Yes) Leukocytosis (POA: Yes) GERD (gastroesophageal reflux disease) (POA: Yes) PLAN: Neurological: #Acute encephalopathy, impoving Patient answering orientations questions appropriately Could be related to UTI, acidosis or hypovolemia Calcium levels when corrected wnl Plan - Supportive management of acidosis and hypovolemia - Further work up with B12, RVR - Delirium precautions #Chronic back pain #Neuropathic pain Continue home [place] Continue home trazodone Can start methocarbamol PRN tomorrow if patient has significant back pain Cardiovascular: MAP goal - 65 mmHg #Undifferentiated shock, requiring pressors Ddx: Septic, hypovolemic, cardiogenic, obstructive (less likely) Patient seems confused about his last meal, medications and overall history will need more collateral history from in am Wells score: Low risk for PE Could be a structural heart problem as it was related to excertion Plan: - Levophed, wean as able - TTE to rule out cardiogenic shock - IVF with LR at 200ml/hr - Holding lisinopril due to shock and priyanka #Fall Does not seems mechanical per patient's history Could be related to polypharmacy due to opioid use, could also be orthostatic, although patient or vasovagal. However there can also be a structural heart component since this happened during exertion. Plan: - Consider orthostatic - F/u TTE - Telemetry Pulmonary: SpO2 goal - 88-90 #COPD emphysematous not exacerbated Patient is asymptomatic, denying cough and sputum production - Duoneb PRN #Concerns for aspiration PNA vs pneumonitis CT findings with right lung fluid colections, and crackles on right lung on physical exam, however asymptomatic not coughing and satting well on 2L NC. Low concern for infection at the moment, no leukocytosis and afebrile - Will ctm - F/u on cultures GI: ROLAN Start diet after bedside swallow test #Chronic opioid user BR: Miralax Senna #Dialeted common bile duct Patient does not have elevated bilirubin levels, liver enzymes mildly elevated, Consider outpatient MRCP #Moderate hiatal hernia #GERD Continue home pantoprazole Renal: #Rhabdomyolysis #PRIYANKA #Metabolic acidosis #High levels of TCA High levels of TCA could be related to flexeril use which is known to cause false positive elevations of TCA levels PRIYANKA likely intrinsic kidney injury per urine lytes, could be related to rhabdomyolysis vs ATN due to shock Plan: - Continue LR as above - Serial EKGs q8 for TCA levels - Trending CK - Trending lactic acid - Daily CMP Endocrine: BGM goal 140-180 mg/dL #ROLAN #Hypothyroidism TSH in am Continue home levothyroxine ID: #Concerns for aspiration #[place] Patient is denying symptoms, however his mentation waxes and wanes, thus will treat empirically with CTX, for now. Can reconsider in AM F/u blood, sputum, urine cultures Heme/Onc: ROLAN FEN: -Monitor electrolytes QD, Replace K<4, Mg<2, Phos<3 Lines: Peripheral IV Anterior;Left Forearm Placement Date: 08/16/24 Size (Gauge): 20 G Orientation: Anterior;Left Location: Forearm 1 day Peripheral IV Left Antecubital Placement Date/Time: 08/16/24656 Size (Gauge): 20 G Orientation: Left Location: Antecubital Technique: Ultrasound Guidance 0 days Peripheral IV Anterior;Proximal;Right Forearm Placement Date/Time: 08/16/241950 Size (Gauge): 20 G Orientation: Anterior;Proximal;Right Location: Forearm 0 days Peripheral IV Anterior;Right;Upper Arm Placement Date/Time: 08/16/242014 Size (Gauge): 20 G Orientation: Anterior;Right;Upper Location: Arm Site Prep: Chlorhexidine Technique: Ultrasound Guidance Prophylaxis: Aspiration precautions w/ HOB elevation by 30 degrees GI prophyalxis w/ Pantoprazole DVT prophyalxis w/ SCDs, Heparin Diet: Regular Activity: Ad eugenio Disposition: ICU Monitoring Code Status: Full Goals of care discussion done? (1): Christopher Ayala MD CREAM MACHINE OPERATOR Associated attestation - Raul Majano DO - 08/17/2024 12:39 AM 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 I have verified the documentation of the resident including all history, exam, and medical decision-making details. I have personally performed a physical exam and have personally reviewed the data to support my medical decision-making as outlined in the resident???s note, and I arrive independently at the same conclusion. Please see my other note for further details. Date of Service: 08/16/2024 Raul Majano D.O. Rub[employer] Thread Spoolerunderground production foreperson Division of Pulmonary, Critical Care, and Sleep Medicine [facility] Pager: [phone] * Carolann Morales MD - 08/16/2024 5:26 AM CST TRAUMA ADMISSION HISTORY & PHYSICAL Date of Admission:08/16/2024 Date of Consult:08/16/2024 5:26 AM Time Seen: On arrival Activation level: 2 Trauma Team: Attending: Dr. Gonzalez Senior: Bibi Su Hitesh: Carmen PRE-HOSPITAL COURSE: Pre Hospital (mechanism, treatments, clinical course): Description of mechanism: fall down 10 stairs Trauma occurred between 12:00-17:00 on 08/15/2024 . Clinical course of patient: Patient arrived by Ambulance from outside hospital: [facility] Intubated in the field: No Blood given prior to arrival: None IV fluids given: Yes - 2 liters NS tourniquet placed in the field: No Medications administered prior to arrival: Levophed was running at 11 mcg/min through PIV. 100 mcg of Fentanyl. Lines present prior to arrival: Peripheral IVs HOSPITAL COURSE (chief complaint): This is a 69 year old male presenting as a level 2 trauma following a fall down 10 stairs. The falloccurred yesterday between 12:00 and 17:00. Family had noted patient was more confused yesterday evening (after 17:00), patient reports he became dizzy which caused him to fall. Denies LOC. They arrived without a backboard, with a cervical collar. He reports he also developed new full body twitching which began on . Initially was taken to [facility]. There was concern for neurogenic shock. Was started on Levophed 11 mcg/min for MAP goal of 90 or greater. Complains of Pain: Back pain and head pain Products & Meds: [facility] Crystalloid Boluses: Yes - 1.5 L Blood Products: None Other: Continued Levophed TXA: No Tdap: no Antibiotics: None indicated Procedures: Arterial Line placement in the ED on 08/16/[address] Su in the L radial. Arterial Line placement in the ED on 08/16/[address] Henry with the assistance of Dr. Mtz PAST MEDICAL HISTORY If applicable, unable to obtain due to: not applicable, patient participatory Allergies: Prednisone, NSAIDs Medications: Based on charts Flexeril 10 mg TID Prozac 20 mg QD Gabapentin 300 mg BID Ipratropium-albuterol 20-100 mcg/ACT Ativan 1 mg BID PRN for anxiety Morphine 15 mg Q8H PRN Trazodone 100 mg QHS Tessalon 200 mg BID PRN Flonase No current outpatient medications on file prior to encounter. Immunizations: up to date Past Medical History: COPD No past medical history on file. Hospitalized: no recent hospitalizations Surgical History: Lumbar spine surgery No past surgical history on file. Social: Social History Socioeconomic History Marital status: Spouse name: Not on file Number of children: Not on file Years of education: Not on file Highest education level: Not on file Occupational History Not on file Tobacco Use Smoking status: Not on file Smokeless tobacco: Not on file Substance and Sexual Activity Alcohol use: Not on file Drug use: Not on file Sexual activity: Not on file Other Topics Concern Not on file Social History Narrative Not on file Social Determinants of Health Financial Resource Strain: Not on file Food Insecurity: Not on file Transportation Needs: Not on file Stress: Not on file Housing Stability: Not on file - Alcohol: Deneis use - Drug use: Never Last Meal: Yesterday Last menstrual Period: not applicable No family history on file. REVIEW OF SYSTEMS: If applicable, unable to obtain due to: not applicable, patient participatory Constitutional: Negative Eyes: Negative for eye pain, glasses or contacts Ears, nose, mouth, and throat: Negative for sudden vision changes Respiratory: Negative for new shortness of breath, cough Cardiovascular: Negative for palpitations, chest pain, dyspnea on exertion Gastrointestinal: Negative for heartburn or reflux, constipation, diarrhea, poor appetite, abdominal pain, nausea, vomiting Genitourinary:Negative for trauma Skin: Negative for new rashes Hematologic/lymphatic: Negative Neurological: + new twitching/mm spasms Behavioral/Psych: Negative SI/HI Endocrine: No heat intolerance and No cold intolerance The rest of the review of systems was negative. PRIMARY SURVEY Airway: patent Breathing: clear to auscultation bilaterally Circulation: intact Cap Refill: 3-4 seconds Skin: Warm centrally, extremities cool Skin Color: appropriate Pulses Carotid: 2+ Radial: 2+ Femoral: 2+ Dorsalis Pedis: Unable to obtain even with doppler Posterior Tibial: Unable to obtain even with doppler Disabililty GCS15 Verbal5 (Converses/Oriented), Motor6 (Obeys commands), Eyes4 Points (Spontaneous) Pupils: normal, equal and reactive to light SECONDARY SURVEY Blood pressure 92/54, pulse 80, temperature 97.6 ??F (36.4 ??C), temperature source Temporal, resp.rate 9, height 1.829 m (6'), weight 68 kg (150 lb), SpO2 95%. Temp Av.6 ??F (36.4 ??C) Min: 97.6 ??F (36.4 ??C) Max: 97.6 ??F (36.4 ??C), Pulse Av.4 Min: 79 Max: 89, Resp Av.5 Min: 5 Max: 33, BP Min: 65/40 Max: 126/74 Intake/Output Summary (Last 24 hours) at 08/16/2024 0946 Last data filed at 08/16/2024 0930 Gross per 24 hour Intake 19.65 ml Output 700 ml Net -680.35 ml Physical Exam Head: Some red discoloration on the L anterior scalp Eyes: PERRLA 3 mm, no conjunctival hemorrhage Ears: Tympanic membranes clear, no hemotympanum Nose: No evidence of trauma, no septal hematoma Oropharynx: pink, atraumatic, no malocclusion Maxillofacial: Face stable, not TTP Neck: no evidence of trauma, pt in c-collar Cervical Spine: TTP, no step offs, no crepitus Lungs: clear to auscultation with equal bilateral breath sounds Chest: no evidence of trauma CV: RRR, no murmurs, rubs, or gallops Abdomen/Pelvis: SNTND, normoactive bowel sounds. Pelvis stable. : Normal male external genitalia Rectal Exam: normal tone, no gross blood RU extremity: Small abrasion to the right forearm and peripheral IV sites without erythema and withunrestricted flow CHRIST extremity: no evidence of trauma and peripheral IV sites without erythema and with unrestricted flow RL extremity: no evidence of trauma LL extremity: no evidence of trauma Back (Thoracic and Lumbar Spines): Bulge on lumbar spine is pre-existing, no TTP, no step offs, no crepitus Skin: No abrasions or lacerations other than previously noted. SECONDARY DATA ED Trauma FAST Ultrasound Deferred for CT scans ECG: Normal Sinus Rhythm Data Review: Recent Labs Component Name 08/16/24 0550 WBC 17.4* HGB 14.5 HCT 43.5 MCV 102.1* Recent Labs Component Name 08/16/24 0550 CL 104 CO2 14* BUN 49* CREATININE 5.74* CALCIUM 7.8* Recent Labs Component Name 08/16/24 0852 08/16/24 0550 PROT 5.7* - ALB 2.7* - TBILI 0.4 - DBILI 0.3 - AST 78* - ALT 41 - ALKPHOS 64 - LIPASE - 13 Recent Labs Component Name 08/16/24 0550 INR 1.1 PTT 27.4 EtOH: Negative Imaging: CXR: Severe left rotation of the patient. Right basilar atelectasis. Left mid and lower lung field patchy airspace opacity which may represent pneumonia, aspiration, hemorrhage or contusion in this setting of trauma. No right pleural effusion, the left costophrenic angle is obscured and may represent a small pleural effusion. No pneumothorax. Patient rotation limits evaluation of heart and mediastinal contours. Pelvis XR: No acute displaced fracture or dislocation of pelvis is identified. CT Head: naich Brain injury guidelines: Skull fracture: No Subdural hematoma: No subdural hematoma. Epidural hematoma: No epidural hematoma. Intraparenchymal hemorrhage: No intraparenchymal hemorrhage. Subarachnoid hemorrhage: No subarachnoid hemorrhage. Intraventricular hemorrhage: No. Midline shift: No. CT C Spine: Moderate diffuse osteopenia and motion artifact limits evaluation for subtle fractures. no evidenceof acute fracture within exam limitations CT T Spine: No evidence of acute fracture in the thoracic spine, Moderate diffuse osteopenia, this in addition to some motion artifact evaluation for subtle fractures. There is consolidative opacity in the posterior left lower lobe concerning for pneumonia or aspiration. Right lower lobe atelectasis and/or scarring. Secretions are seen layering dependently in the right mainstem bronchus representing aspiration. Atherosclerotic calcification of the aorta and its br anch vessels. There is thickening of the esophagus most prominent in the distal portion which may represent esophagitis. Noncalcified atherosclerosis or clot is seen in the posterior descending thoracic aorta at approximately level T9 CT L Spine: Evaluation of the spine is limited due to diffuse osteopenia and motion and streak artifact, withinthese exam limitations, assessment is made: No acute fracture visualized in the lumbar spine. L3-4 posterior lumbar fusion appears to be intact. CT Chest/Abd/Pelvis: 1. No acute injury in the chest/abdomen/pelvis. 2. Fluid noted in the right mainstem bronchus consistent with aspiration. There is consolidation ofthe left lower lobe containing air bronchograms concerning for pneumonia. 3. Dilated common bile duct with intrahepatic biliary dilatation. Nonemergent MRI with MRCP could be performed for further evaluation. 4. Moderate hiatal hernia with distended fluid-filled esophagus with esophageal wall thickening which can be seen in setting of gastroesophageal reflux/esophagitis. Additional X-rays or Imaging: CT Angio Left Lower Extremity Run-Off: Three-vessel runoff of bilateral lower extremity arteries to the level of ankle. Of note, the dorsalis pedis and tibialis posterior arteries are diminutive bilaterally likely secondary to diffuse spasm but patent without evidence of contrast extravasation to suggest arterial injury or active bleeding. Consultants: Service: NSGY Name of Resident: Misbah Antunez MD Time of Consult: 08:39 None ASSESSMENT: Active Problems: Shock (HCC) Fall (on) (from) other stairs and steps, initial encounter Injuries Age indeterminate anterior compression fx of L3, likely chronic Incidentals Fluid in R mainstem bronchus consistent with aspiration Concern for LLL pneumonia Dilated CBD with intrahepatic biliary dilatation Moderate hiatal hernia with fluid filled esophagus and wall thickening Noncalcified atherosclerosis or clot in posterior descending thoracic aorta DP and PT diminutive bilaterally likely related to spasm This is a 69 year old male presenting as a level 2 trauma following fall from a flight of stairs with injuries as listed below. PLAN: Injuries: Age indeterminate anterior compression fx of L3, likely chronic Incidentals: Fluid in R mainstem bronchus consistent with aspiration Concern for LLL pneumonia Dilated CBD with intrahepatic biliary dilatation Moderate hiatal hernia with fluid filled esophagus and wall thickening Noncalcified atherosclerosis or clot in posterior descending thoracic aorta DP and PT diminutive bilaterally likely related to spasm Neurosurgery has evaluated the patient and believes that the L3 compression fracture is chronic. Patient has no other injuries noted on exam or imaging. Patient does not meet criteria for a Trauma admission. However, patient required pressors for maintenance of blood pressure and had concerns for LLL PNA.. Therefore, would recommended admission to MICU. However, remainder of patient's care per EMat this time. Please do not hesitate to reach out with any questions or concerns. If patient is admitted, will perform tertiary tomorrow. Dispo: Per EM Emergent Operative Procedure Requiring 15 minutes to OR NO Time OR contacted -- Time in OR -- Carolann Morales MD [facility] August 16, 2024 9:46 AM CREAM MACHINE OPERATOR Associated attestation - Cresencio Gonzalez MD - 08/17/2024 2:58 PM 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 I spent 35 minutes in full attendance with this critically-ill patient. Time spent was exclusive ofseparately billed procedures, treating other patients, and teaching time. I have reviewed and agreewith resident documentation. -I was present in the trauma bay 1.5 hours after patient arrival -Level 2 trauma alert -69M s/p fall down stairs -Suspicion of C-spine injury at OSH -Arrived in shock, hypotensive, on pressors -GCS 13 in trauma bay -Taken to CT scanner, imaging reviewed by me personally and by radiology team Critical care was necessary to treat or prevent life-threatening deterioration of the following: -Hypotensive shock -Acute kidney injury -Acidosis The plan of care consists of: -Imaging reviewed, I do not appreciate any major traumatic injuries. Specifically there is no evidence of c-spine fracture. There is a likely chronic L3 compression fracture. We have had the spinal surgery team evaluate this and they believe it is chronic and that it requires no intervention, nor does the patient require a c-collar -Shock: On norepi infusion, titrate to MAP>65 -PRIYANKA: Fluid resuscitation, avoid nephrotoxins, monitor UOP closely, trend Creatinine -Plan for admission to MICU, as patient has no major traumatic injuries Cresencio Gonzalez MD documented in this encounter Procedure Notes * Kay Isidro MD - 08/19/2024 12:50 PM CSTAssociated Order(s): ENDOSCOPIC ULTRASONOGRAPHY, GI (No note.) CREAM MACHINE OPERATOR * Cristóbal Mtz MD - 08/16/2024 8:32 AM CST Arterial Line Insertion Procedure Note Procedure: Right Arterial Line Insertion Pre-operative Diagnosis: Need for invasive blood pressure monitoring Post-operative Diagnosis: Same Surgeon: Cristóbal Mtz MD, Sanna Henry DO Anesthesia: None Indication for Procedure: Ray Ashley is a 69 year old male who requires accurate blood pressure measurements for hemodynamic monitoring. Informed consent obtained. Risks and benefits were discussedwith the patient and they elected to proceed. Procedure Details: A site on the right wrist was chosen and a radial artery pulse was palpated. An Salinas test was performed to assess for adequate collateral circulation. The area was prepped and draped in the usual sterile fashion. Using ultrasound guidance, a radial arterial catheter was inserted into the right radial artery using the modified Seldinger technique. An adequate waveform was obtained. The line was elise tured in place using a 3-0 silk suture and dressed. The patient tolerated the procedure without difficulty. Dr. Gonzalez was available for all critical portions of the procedure Findings: Successful placement of right arterial line Estimated Blood Loss: 5mL Complications: None. Disposition: Pending Condition: Stable Cristóbal Mtz MD General Surgery Resident, PGY-4 08/16/2024 8:39 AM CREAM MACHINE OPERATOR Associated attestation - Cresencio Gonzalez MD - 08/16/2024 8:48 AM 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 I agree with the resident's description of the procedure. I was present for the santos and critical portions and immediately available throughout. Cresencio Gonzalez MD documented in this encounter Consult Notes * Dipak Diamond MD - 08/18/2024 12:32 PM CSTAssociated Order(s): IP CONSULT TO GASTROENTEROLOGY GASTROENTEROLOGY CONSULT Ray Ashley Age: [id number] year old Date of : 1955 Date of Admission: 08/16/2024 Reason for Consult: incidental ductal dilation Requesting Team: Medicine Subjective: History of Present Illness: Ray Ashley is a 69 year old male with a history of HTN, COPD, hypothyroidism, L3-4 PSF s/p remotelaminectomy complicated by chronic back pain on long-term opiate therapy who presented after fall and was found to be hypotensive on arrival. Further workup for cause revealed aspiration on CT and 20mm CBD and slightly dilated PD. Patient reports extensive upper GI symptoms mostly relating to dysphagia. Reports a few months of dysphagia to solids that is much better with soft foods and liquids. Has lost 15 lbs. Food gets stuckin his mid chest. Reports his dog destroyed his dentures and prior to this was not having these issues. Recent EGD at OSH showed jennifer esophagitis and fluconazole course did not improve his symptoms. Otherwise notes ongoing burning chest pain periodically. He otherwise notes periodic RUQ pain, not able to describe clear triggers or relieving factors, ongoing for a long time. Otherwise denies family history of pancreatic cancer, personal history of pancreatitis. Has long been on high dose opiates for pain. Past Medical History: Patient Active Problem List: Shock (HCC) Fall (on) (from) other stairs and steps, initial encounter Hiatal hernia Aspiration pneumonitis (HCC) Chronic back pain Hypothyroidism Rhabdomyolysis PRIYANKA (acute kidney injury) ([facility]) Lactic acidosis Acute encephalopathy Common bile duct dilation COPD (chronic obstructive pulmonary disease) (HCC) Tobacco abuse History of lumbar laminectomy Leukocytosis GERD (gastroesophageal reflux disease) Past Medical History: Diagnosis Date Chronic back pain COPD (chronic obstructive pulmonary disease) (HCC) Essential (primary) hypertension Hypothyroidism Neuropathy Past Surgical History: Past Surgical History: Procedure Laterality Date Lumbar Laminectomy Medications: Medications Prior to Admission Medication Sig Dispense Refill acetaminophen-codeine (Tylenol #4) 300-60 MG tablet Take 1 (one) tablet by mouth every 6 hours as needed for Pain cyclobenzaprine (Flexeril) 10 MG tablet Take 1 (one) tablet by mouth 2 times daily as needed DULoxetine (Cymbalta) 60 MG capsule Take 1 (one) capsule by mouth once daily FLUoxetine (PROzac) 20 MG capsule Take 3 (three) capsules by mouth once daily gabapentin (Neurontin) 300 MG capsule Take 1 (one) capsule by mouth 2 times daily levothyroxine (Synthroid) 50 MCG tablet Take 1 (one) tablet by mouth once daily lisinopril (Prinivil; Zestril) 20 MG tablet Take 1 (one) tablet by mouth once daily morphine IR (MSIR) 30 MG tablet Take 1 (one) tablet by mouth 3 times daily as needed pantoprazole EC (Protonix) 40 MG tablet Take 1 (one) tablet by mouth every morning traZODone (Desyrel) 100 MG tablet Take 1 (one) tablet by mouth once Current Facility-Administered Medications Medication 0.9% NaCl injection 3 mL And 0.9% NaCl injection 1-10 mL albuterol-ipratropium (Duo-Neb) nebulizer solution 3 mL azithromycin (Zithromax) tablet 500 mg cefTRIAXone (Rocephin) syringe 2,000 mg [Held by Provider] cyclobenzaprine (Flexeril) tablet 10 mg dextrose IV 12.5 g Or dextrose IV 25 g Or glucagon (Glucagen) injection 1 mg DULoxetine (Cymbalta) capsule 60 mg gabapentin (Neurontin) capsule 300 mg glucose (Diabetic Use) oral gel heparin injection 5,000 Units HYDROcodone-acetaminophen ([place]) 10-325 MG tablet 1 tablet levothyroxine (Synthroid) tablet 50 mcg lidocaine (Lidoderm) 5 % patch 1 patch [Held by Provider] lisinopril (Prinivil; Zestril) tablet 20 mg [Held by Provider] morphine IR (MSIR) tablet 30 mg pantoprazole EC (Protonix) tablet 40 mg senna (Senokot) tablet 8.6 mg sodium phosphate 30 mmol in 260 mL bolus traZODone (Desyrel) tablet 100 mg Allergies: Allergies Allergen Reactions Nsaids Unknown, GI Discomfort and Shortness of Breath Prednisone Unknown and Shortness of Breath Social History: Social History Tobacco Use Smoking status: Not on file Smokeless tobacco: Not on file Substance Use Topics Alcohol use: Not on file Family History: Family history is unknown by patient. Review of Systems: As per HPI. Objective: Physical Exam: BP 159/78 (BP Location: Left arm) Pulse 72 Temp 98.1 ??F (36.7 ??C) (Oral) Resp 18 Ht 1.829m (6') Wt 74.5 kg (164 lb 3.2 oz) SpO2 99% Wt Readings from Last 5 Encounters: 08/18/24 74.5 kg (164 lb 3.2 oz) General: Pleasant, in no distress. HEENT: Conjunctivae/corneas clear. Lungs: Normal work of breathing. Heart: Normal rate and regular rhythm. Abdomen: Soft, non-tender, non-distended. Extremities: No edema, warm to touch. Dermatologic: No observed rashes on exposed skin. Neuro: Alert, cooperative, no gross focal signs. Psych: Goal-directed thought process. Labs: Recent Labs Component Name 08/18/24 0640 08/17/24 0513 08/17/24 0407 08/16/24 1905 08/16/24 0550 WBC 3.8* 5.8 4.1 9.3 17.4* HGB 11.5* 12.0* 7.1* 13.7 14.5 MCV 98.2* 100.0* 102.9* 99.0* 102.1* INR 1.1 - 2.0 - 1.1 Recent Labs Component Name 08/18/24 0640 08/17/24 0513 08/17/24 0407 NA 140 142 136 CL 111* 111* 111* CO2 23 24 18* BUN 24 36* 27* CREATININE 0.82 1.50* 1.14 Recent Labs Component Name 08/18/24 0640 08/17/24 0407 08/16/24 1905 AST 53* 43* 87* ALT 39 27 48 ALKPHOS 49 52 63 TBILI 0.4 0.2 0.5 ALB 2.4* 1.7* 2.7* Imaging: CT Angio Lower Extremity Left Result Date: 08/16/2024 IMPRESSION: Three-vessel runoff of bilateral lower extremity arteries to the level of ankle. Of note, the dorsalis pedis and tibialis posterior arteries are diminutive bilaterally likely secondary todiffuse spasm but patent without evidence of contrast extravasation to suggest arterial injury or active bleeding. > Dictated by Felix Awad MD (administrative resident). I, Viviana Rain MD havepersonally reviewed and interpreted this examination/study. > Interpreting Provider: Viviana Rain MD on 08/16/2024 5:[address] Angio Lower Extremity Right Result Date: 08/16/2024 IMPRESSION: Three-vessel runoff of bilateral lower extremity arteries to the level of ankle. Of note, the dorsalis pedis and tibialis posterior arteries are diminutive bilaterally likely secondary todiffuse spasm but patent without evidence of contrast extravasation to suggest arterial injury or active bleeding. > Dictated by Felix Awad MD (administrative resident). Viviana Brizuela MD havepersonally reviewed and interpreted this examination/study. > Interpreting Provider: Viviana Rain MD on 08/16/2024 5:[address] CHEST ABDOMEN PELVIS W CONT - Abdomen-pelvis trauma, blunt or penetrating Result Date: 08/16/2024 Impression 1. No acute visceral, vascular, or [...] gastroesophageal reflux/esophagitis. Report dictated by Bryon Watson MD(administrative resident). Viviana Brizuela MD have personally reviewed and interpreted this examination/study. > Interpreting Provider: Viviana Rain MD on 08/16/2024 5:01 PM XR PELVIS 1 OR 2VW Result Date: 08/16/2024 IMPRESSION: No acute displaced fracture or dislocation of pelvis is identified. Report dictated by Rafi Vicente MD (administrative resident). Mason Brizuela have personally reviewed and interpreted this examination/study. > Interpreting Provider: Mason Lucero on 08/16/2024 3:[address] HEAD WO CONTRAST - Head Trauma, CSF leak, mental status changes Result Date: 08/16/2024 IMPRESSION: 1.No acute intracranial hemorrhage, midline shift, [...] findings. Report dictated by Rafi Vicente MD (administrative resident). Ruby Brizuela MD have personally reviewed and interpreted this examination/study. > Interpreting Provider: Ruby Villanueva MD on 08/16/2024 10:[address] CERVICAL SPINE WO CONTRAST - C-Spine Trauma, Spine fracture Result Date: 08/16/2024 IMPRESSION: 1.No acute intracranial hemorrhage, midline shift, [...] findings. Report dictated by Rafi Vicente MD (administrative resident). Ruby Brizuela MD have personally reviewed and interpreted this examination/study. > Interpreting Provider: Ruby Villanueva MD on 08/16/2024 10:[address] THORACIC SPINE WO CONTRAST - T/L-spine trauma, spine fracture Result Date: 08/16/2024 IMPRESSION: 1.No acute intracranial hemorrhage, midline shift, [...] findings. Report dictated by Rafi Vicente MD (administrative resident). Ruby Brizuela MD have personally reviewed and interpreted this examination/study. > Interpreting Provider: Ruby Villanueva MD on 08/16/2024 10:[address] LUMBAR SPINE WO CONTRAST - T/L-spine trauma, Spine fracture Result Date: 08/16/2024 IMPRESSION: 1.No acute intracranial hemorrhage, midline shift, [...] findings. Report dictated by Rafi Vicente MD (administrative resident). I, Ruby Villanueva MD have personally reviewed and interpreted this examination/study. > Interpreting Provider: Ruby Villanueva MD on 08/16/2024 10:30 AM Assessment: Ray Ashley is a 69 year old male with a history of HTN, COPD, hypothyroidism, L3-4 PSF s/p remotelaminectomy who presented in shock, being found down and was found to have dilated CBD to 20 mm without any other associated biliary pathology. Incidental CBD dilation, mild PD dilation - in patient without significant elevated LFTs or classicbiliary pain. No family or personal history of pancreatic issues. Possibly due to chronic opiate use. <1% of such patients have underlying malignancy. Due to extent of dilation there is some chance of underlying stone/sludge (~>10% in patients with CBD > 15 mm in size). Recommendations: Recommend EUS +/- ERCP pending findings for further evaluation Typically this would be done as an outpatient but as the patient lives far away and has difficulty with transportation we can attempt this workup this admission In anticipation for possible endoscopy please ensure the following: Have patient be NPO at midnight tonight Hold anticoagulation/antiplatelet agents if able Goal Hb > 7, PLT > 50, INR < 1.5, K > 4, Mg > 2 Patient and above recommendations to be discussed with GI attending, Dr. Bowden, as well as the primary team. Recommendations are tentative until staffed. Thank you for allowing us to participate in the care of this patient. We will continue to follow this patient with you. Please do not hesitate to contact us with further questions. Dipak Diamond MD PGY-, Division of Gastroenterology / Hepatology [facility] CREAM MACHINE OPERATOR Associated attestation - Alpesh Bowdne MD - 08/18/2024 7:21 PM 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 The CBD dilation is most likely due to chronic opioid use. This on its own doesn't have clinical significance except after ruling out structural pathologies via EUS. Due to difficulty following up asoutpatient, please keep patient NPO after midnight for an EUS tentatively on 08/19/24 Alpesh Bowden MD Rubber Thread Spoolerunderground production foreperson at [employer] and Advanced Endoscopist Division of Gastroenterology & Hepatology ATTENDING ATTESTATION: I have seen and examined the patient with the resident/fellow/WEATHERIZATION DIRECTOR and I agreewith the findings and plan of care as documented above. * Msibah Antunez MD - 08/16/2024 8:39 AM CST Neurosurgery Consult Note Name: Ray Ashley :1955 Date of Admission:08/16/2024 Date of Consult:48:39 AM Time images reviewed: 0845 Time patient examined: 915 Reason for consult: Spine fracture Consult Requested by: Trauma HISTORY OF PRESENT ILLNESS (HPI): Patient is a 69 year old with PMH COPD hepatitis, HTN , prior L3-4 PSF and laminectomy in 1996 who presents s/p fall down 10 stairs yesterday. Patient had hypotension at OSH ED and was started on pressors. Patient endorses back and neck pain. He denies numbness/tingling. The patient medication include no anticoagulants/aspirin per patient. CT scan showed age-indeterminate lumbar fracture and neurosurgery was contacted at that time. [facility] NEURO SPINAL SURGERY HIGH RISK VARIABLES Fluid & Electrolyte Disorders - Other Yes No past medical history on file. No past surgical history on file. Current Facility-Administered Medications Medication 0.9% NaCl injection 3 mL And 0.9% NaCl injection 1-10 mL albuterol-ipratropium (Duo-Neb) nebulizer solution 3 mL iopamidol (Isovue 370) 76 % contrast norepinephrine (Levophed) 8 mg/250 ml NS infusion premix Tysgvyk-Cadrl-Jypnx Pertussis Vaccine (Boostrix; 7y+) (Tdap) 0.5 mL No current outpatient medications on file. Allergies Allergen Reactions Nsaids Unknown, GI Discomfort and Shortness of Breath Prednisone Unknown and Shortness of Breath Social History Tobacco Use Smoking status: Not on file Smokeless tobacco: Not on file Substance Use Topics Alcohol use: Not on file No family history on file. PHYSICAL EXAM BP 93/77 Pulse 85 Temp 97.6 ??F (36.4 ??C) (Temporal) Resp 11 Ht 1.829 m (6') Wt 68 kg (150 lb) SpO2 95% General: awake, slightly lethargic Neuro: GCS: 14 Neuro: Motor: Deltoid Bicep Tricep Corn Husk Baler Hip Flexor Quad Hamstring Tib Ant Gastroc Right 4* 4* 4* 4* 5/5 5/5 5/5 5/5 5/5 Left 4* 4* 4* 4* 5/5 5/5 5/5 5/5 5/5 Reflexes: No Moraes's Sensory: Light touch, pinprick, position sense, and vibration sense are intact in fingers and toes. * patient intermittently cooperating with UE motor exam, has good coordination and strength but hasintermittent jerking motions in arms Tenderness to palpation in cervical and lumbar region Mendiola placed for PRIYANKA and full bladder seen on CT LABORATORY Alcohol: WNL Cr: 5.7 WBC: 17 Plt: 189 PT/PTT: WNL RADIOLOGY CT cervical: Moderate diffuse osteopenia and motion artifact limits evaluation for subtle fractures. no evidenceof acute fracture within exam limitations CT thoracic: No evidence of acute fracture in the thoracic spine, Moderate diffuse osteopenia, this in addition to some motion artifact evaluation for subtle fractures. CT lumbar: Age indeterminant anterior compression fracture deformity of L3, favored to be chronic this area islargely obscured by streak artifact. L3-4 posterior lumbar fusion appears to be intact. 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 The patient medication include no anticoagulants/antiplatelets. Neurologically, patient has good strength in BUE and BLE but has jerking motions, possibly myoclonic. He has back and neck pain, denies cauda equina symptoms. CT scan showed age-indeterminate L3 fracture and intact hardware from prior fusion. Patient has kyphosis at that level and likely chronic fracture. - No acute neurosurgical intervention - Ok to remove c-collar - Recommend patient follow-up with original spine surgeon - Osteoporosis treatment per PCP - Neurosurgery will sign off Case discussed with Dr. Sanchez at 11:30. Misbah Antunez MD 08/16/2024 8:39 AM CREAM MACHINE OPERATOR documented in this encounter ED Notes * Enrrique Malloy RN - 08/16/2024 3:40 PM CST Bed: [facility] Expected date: Expected time: Means of arrival: Comments: T05 after scans if stable CREAM MACHINE OPERATOR * Carolina Pollack MD - 08/16/2024 2:15 PM CST ASSUMED CARE NOTE Patient signed out to me by Dr. Malik at 2:16 PM. Resident provider Ranjeet will also follow. Ray Ashley is a 69 year old male is being evaluated for fall. At this time the patient's condition is guarded. Pending inpatient bed.Thus far, studies reveal elevated CK and PRIYANKA.Plan is previous team admit pt to MICU for shock. Vitals: 08/16/24 2000 08/16/24 2100 08/16/24 2200 08/16/24 2300 BP: 100/68 109/65 120/90 109/74 Pulse: 98 92 88 84 Resp: 14 9 12 13 Temp: 99.9 ??F (37.7 ??C) SpO2: 96% 97% 94% 95% Weight: Height: Labs Reviewed BASIC METABOLIC PANEL (CALCIUM TOTAL) - Abnormal; Notable for the following components: Result Value BUN 49 (*) Creatinine 5.74 (*) CO2 14 (*) Glucose 123 (*) Calcium 7.8 (*) Anion Gap 18 (*) Osmolality Calculated 296 (*) eGFR by CKD-EPI 10 (*) All other components within normal limits CBC W AUTO DIFFERENTIAL - Abnormal; Notable for the following components: WBC 17.4 (*) RBC Count 4.26 (*) MCV 102.1 (*) MCH 34.0 (*) Neutrophil % 87.6 (*) Lymphocyte % 4.4 (*) Neutrophil Absolute 15.27 (*) Lymphocyte Absolute 0.77 (*) Monocyte Absolute 1.27 (*) All other components within normal limits URINE DRUG SCREEN IMMUNOASSAY - Abnormal; Notable for the following components: Opiates Urine Positive (*) Fentanyl Screen Urine Positive (*) All other components within normal limits Narrative: The Urine Toxicology Screening Panel does not screen for Propoxyphene, Meprobamate, Carisoprodol, Trazodone, wycy-zpc-ceblyzp medications and/or volatiles (Acetone, Isopropanol, Methanol or Ethylene Glycol). Ethanol, Salicylate, Acetaminophen, Tricyclic Antidepressants and several therapeutic drugsmay be individually assayed in serum or plasma specimen. Toxicology testing by the [facility] is an aid to medical diagnosisand treatment of patients. No documented chain of custody was maintained. Results are intended to be used for clinical purposes only. SALICYLATE LEVEL BLOOD - Abnormal; Notable for the following components: Salicylate <5 (*) All other components within normal limits Narrative: This test is not intended for use with low-dose aspirin therapy. Most patients on low-dose aspirin for cardiovascular prophylaxis will have serum concentrations near or below the lower limit of the analytical range. TRICYCLICS SCREEN BLOOD - Abnormal; Notable for the following components: Tricyclic Antidepressants 248 (*) All other components within normal limits Narrative: Many drugs significantly cross-react with this assay, including: diphenhydramine, cyclobenzoprine, gabapentin, and fluoxetine. Results should be confirmed by quantitative mass spectrometry. This assay should not be used for following trends. Expected Values for Tricyclic Antidepressants: Pharmacokinetic studies have shown there is a marked individual variation in the therapeutic and toxic response to tricyclic antidepressants at similar blood concentrations. Cardiac effects have beendemonstrated with TCA blood levels as low as 50-100 ng/mL. With TCA levels >500 ng/mL, the incidence of serious cardiac toxicity increases significantly. With TCA levels >1000 ng/mL, severe, sometimes fatal, cardiac and other side effects often occur. URINALYSIS REFLEX MICROSCOPIC REFLEX CULTURE - Abnormal; Notable for the following components: Color UA Rosario (*) Clarity UA Slt Cloudy (*) Specific [place] UA 1.041 (*) Protein UA 1+ (*) Blood UA 3+ (*) Urobilinogen UA 2.0 (*) All other components within normal limits Narrative: HEPATIC FUNCTION PANEL - Abnormal; Notable for the following components: Protein Total 5.7 (*) Albumin 2.7 (*) AST 78 (*) Albumin/Globulin Ratio 0.9 (*) All other components within normal limits URINE MICROSCOPIC ONLY REFLEX TO CULTURE - Abnormal; Notable for the following components: RBC UA 6-10 (*) Bacteria UA 1+ (*) Squamous Epithelial Cells UA 6-10 (*) Hyaline Casts UA 3-5 (*) All other components within normal limits CK BLOOD - Abnormal; Notable for the following components: CK Total 5,864 (*) All other components within normal limits BASIC METABOLIC PANEL (CALCIUM TOTAL) - Abnormal; Notable for the following components: BUN 54 (*) Creatinine 5.58 (*) Potassium 5.0 (*) CO2 14 (*) Calcium 7.8 (*) Anion Gap 23 (*) Osmolality Calculated 300 (*) eGFR by CKD-EPI 10 (*) All other components within normal limits CBC W AUTO DIFFERENTIAL - Abnormal; Notable for the following components: RBC Count 4.05 (*) MCV 99.0 (*) MCH 33.8 (*) Platelet Count 144 (*) Neutrophil % 81.7 (*) Lymphocyte % 8.1 (*) Neutrophil Absolute 7.56 (*) Lymphocyte Absolute 0.75 (*) All other components within normal limits COMPREHENSIVE METABOLIC PANEL - Abnormal; Notable for the following components: BUN 46 (*) Creatinine 2.85 (*) Chloride 110 (*) CO2 21 (*) Glucose 108 (*) Calcium 7.9 (*) Protein Total 5.7 (*) Albumin 2.7 (*) AST 87 (*) Osmolality Calculated 304 (*) Albumin/Globulin Ratio 0.9 (*) eGFR by CKD-EPI 23 (*) All other components within normal limits LACTIC ACID BLOOD - Abnormal; Notable for the following components: Lactic Acid-Stat 2.6 (*) All other components within normal limits BLOOD GASES ART + COOX PANEL - Abnormal; Notable for the following components: pH Arterial 7.29 (*) pO2 Arterial 61 (*) BE Arterial -6.1 (*) Carboxyhemoglobin 2.6 (*) All other components within normal limits Narrative: Carboxyhemoglobin Normal Concentration: Non-smokers: 0-2%; Smokers: 0-9%; Toxic: >20% GLUCOSE - POINT OF CARE - Abnormal; Notable for the following components: Glucose WB/POC 141 (*) All other components within normal limits ALCOHOL ETHYL BLOOD - Normal Narrative: Ethanol Interp <10: None Detected. Depression of GLASS BLOWING INSTRUCTOR: >100 mg/dl Potentially Critical: >250 mg/dl Potentially Fatal >400 mg/dl Ethanol in the patient's blood will contribute to the osmolar gap. Ethanol's contribution to the osmolar gap can be estimated by dividing the concentration of ethanol in mg/dL by 4.6. This test is for clinical use only and does not equal a JF for legal purposes. LIPASE BLOOD - Normal Narrative: Lipase results from the [facility] analyzer may not be comparable with other methodologies. PTT [facility] - Normal PT-INR [facility] - Normal ACETAMINOPHEN LEVEL - Normal Narrative: Acetaminophen Toxicity Levels (Hours Post Ingestion): >200 ug/mL at 4 hours >100 ug/mL at 8 hours >50 ug/mL at 12 hours For acute ingestion, please refer to Acetaminophen nomogram to determine the risk of toxicity basedon time since ingestion and acetaminophen level (see link provided). Note the nomogram disclaimer. WARNING: Assessing the potential toxicity of an acetaminophen level on a standard risk nomogram must take into consideration many factors including any uncertainty of the time since ingestion or the possibility of other medications that may alter the peak level. Contact the [facility] at or reserved for healthcare professionals to assist you in evaluatingpotentially toxic acetaminophen levels. LACTIC ACID BLOOD REFLEX TO REPEAT - Normal MAGNESIUM BLOOD - Normal PHOSPHORUS BLOOD - Normal CULTURE SPUTUM+GRAM STAIN CULTURE BLOOD CULTURE BLOOD CULTURE URINE LYTES (NA K) URINE RANDOM PANEL CREATININE URINE RANDOM UREA NITROGEN URINE RANDOM DRUG SCREEN EXPANDED TOXICOLOGY URINE PANEL PT-INR [facility] PHOSPHORUS BLOOD MAGNESIUM BLOOD COMPREHENSIVE METABOLIC PANEL CBC W AUTO DIFFERENTIAL CK BLOOD LACTIC ACID BLOOD HEMOGLOBIN A1C VITAMIN B12 SYPHILIS ANTIBODY CASCADING REFLEX TSH TYPE + SCREEN PANEL XR PELVIS 1 OR 2VW Final Result EXAMINATION: XR PELVIS 1 OR 2VW DATE/TIME OF EXAM: 08/16/2024 7:22 AM, LOCATION [facility] HISTORY: Trauma Fracture suspected COMPARISON: [...] identified. Report dictated by Rafi Vicente MD (administrative resident). I, Mason Lucero have personally reviewed and interpreted this examination/study. > Interpreting Provider: Mason Lucero on 08/16/2024 3:[address] HEAD WO CONTRAST - Head Trauma, CSF leak, mental status changes Final Result PROCEDURE: CT HEAD WO CONTRAST, CT LUMBAR SPINE WO CONTRAST, CT THORACIC SPINE WO CONTRAST, CT CERVICAL SPINE WO CONTRAST, DATE/TIME OF EXAM: 08/16/2024 7:20 AM, LOCATION [facility] INDICATION: Trauma EXAMINATION: 1.Computed tomography [...] branch vessels. Tortuosity of the abdominal aorta. IMPRESSION: 1.No acute intracranial [...] findings. Report dictated by Rafi Vicente MD (administrative resident). I, Ruby Villanueva MD have personally reviewed and interpreted this examination/study. > Interpreting Provider: Ruby Villanueva MD on 08/16/2024 10:[address] CERVICAL SPINE WO CONTRAST - C-Spine Trauma, Spine fracture Final Result PROCEDURE: CT HEAD WO CONTRAST, CT LUMBAR SPINE WO CONTRAST, CT THORACIC SPINE WO CONTRAST, CT CERVICAL SPINE WO CONTRAST, DATE/TIME OF EXAM: 08/16/2024 7:20 AM, LOCATION [facility] INDICATION: Trauma EXAMINATION: 1.Computed tomography [...] branch vessels. Tortuosity of the abdominal aorta. IMPRESSION: 1.No acute intracranial [...] findings. Report dictated by Rafi Vicente MD (administrative resident). I, Ruby Villanueva MD have personally reviewed and interpreted this examination/study. > Interpreting Provider: Ruby Villanueva MD on 08/16/2024 10:[address] CHEST ABDOMEN PELVIS W CONT - Abdomen-pelvis trauma, blunt or penetrating Final Result PROCEDURE: CT CHEST ABDOMEN PELVIS W CONT, DATE/TIME OF EXAM: 08/16/2024 7:20 AM, LOCATION [facility] INDICATION: Trauma COMPARISON: None. EXAMINATION: [...] retrolisthesis of L4 on L5. Diffuse osteopenia Impression 1. No acute visceral, [...] gastroesophageal reflux/esophagitis. Report dictated by Bryon Watson MD(administrative resident). I, Viviana Rain MD have personally reviewed and interpreted this examination/study. > Interpreting Provider: Viviana Rain MD on 08/16/2024 5:[address] THORACIC SPINE WO CONTRAST - T/L-spine trauma, spine fracture Final Result PROCEDURE: CT HEAD WO CONTRAST, CT LUMBAR SPINE WO CONTRAST, CT THORACIC SPINE WO CONTRAST, CT CERVICAL SPINE WO CONTRAST, DATE/TIME OF EXAM: 08/16/2024 7:20 AM, LOCATION [facility] INDICATION: Trauma EXAMINATION: 1.Computed tomography [...] branch vessels. Tortuosity of the abdominal aorta. IMPRESSION: 1.No acute intracranial [...] findings. Report dictated by Rafi Vicente MD (administrative resident). IRuby MD have personally reviewed and interpreted this examination/study. > Interpreting Provider: Ruby Villanueva MD on 08/16/2024 10:[address] LUMBAR SPINE WO CONTRAST - T/L-spine trauma, Spine fracture Final Result PROCEDURE: CT HEAD WO CONTRAST, CT LUMBAR SPINE WO CONTRAST, CT THORACIC SPINE WO CONTRAST, CT CERVICAL SPINE WO CONTRAST, DATE/TIME OF EXAM: 08/16/2024 7:20 AM, LOCATION [facility] INDICATION: Trauma EXAMINATION: 1.Computed tomography [...] branch vessels. Tortuosity of the abdominal aorta. IMPRESSION: 1.No acute intracranial [...] findings. Report dictated by Rafi Vicente MD (administrative resident). I, Ruby Villanueva MD have personally reviewed and interpreted this examination/study. > Interpreting Provider: Ruby Villanueva MD on 08/16/2024 10:[address] Angio Lower Extremity Left Final Result PROCEDURE: CT ANGIO LOWER EXTREMITY RIGHT, CT ANGIO LOWER EXTREMITY LEFT, DATE/TIME OF EXAM: 08/16/2024 7:20 AM, LOCATION [facility] INDICATION: W10.8XXA: Fall (on) (from) other stairs and steps, initial encounter Ordering Provider Reason For Exam: trauma, no doppler DPT/PT (LE) pulses b/l COMPARISON: [...] bleeding. > Dictated by Felix Awad MD (administrative resident). I, Viviana Rain MD have personally reviewed and interpreted this examination/study. > Interpreting Provider: Viviana Rain MD on 08/16/2024 5:[address] Angio Lower Extremity Right Final Result PROCEDURE: CT ANGIO LOWER EXTREMITY RIGHT, CT ANGIO LOWER EXTREMITY LEFT, DATE/TIME OF EXAM: 08/16/2024 7:20 AM, LOCATION [facility] INDICATION: W10.8XXA: Fall (on) (from) other stairs and steps, initial encounter Ordering Provider Reason For Exam: trauma, no doppler DPT/PT (LE) pulses b/l COMPARISON: [...] bleeding. > Dictated by Felix Awad MD (administrative resident). Viviana Brizuela MD have personally reviewed and interpreted this examination/study. > Interpreting Provider: Viviana Rain MD on 08/16/2024 5:06 PM XR CHEST 1VW PORTABLE Final Result PROCEDURE: XR CHEST 1VW PORTABLE, DATE/TIME OF EXAM: 08/16/2024 5:44 AM, LOCATION [facility] INDICATION: Trauma ADDITIONAL CLINICAL INFORMATION: [...] visualized. Report dictated by Rafi Vicente MD (administrative resident). Mason Brizuela have personally reviewed and interpreted this examination/study. > Interpreting Provider: Mason Lucero on 08/16/2024 2:29 PM ED Course: Titrating NE 0.05 AB 1758 Patient at this time has a bed assigned with MICU service. Patient to be transferred to their inpatient bed. KH 1753 Lactic Acid-Stat: 1.7 Not elevated. AB 1552 Reassessed the patient. Patient is resting comfortably.Pt nurse unable to wean pt off of levophed.Pt still c/o of lower back pain.Pt's C collar is still on. On exam pt has pointed upper C spine tenderness, intermittently confused,lungs are diminished bilaterally with equal air exchanged. Performed POCUS to look at contractility of heart.Pt had brownish urine at bedside.Will be giving pt 1500 cc IV to see if pt will get better in order to wean off of levophed.VSS. KH 1548 Creatinine: 5.58 Improved from 5.74 AB 1503 Patient states last name when asked for first and last. He also states it's when asked forthe year. Inquesting on pain inconsistent with complaining of back pain then denying. Pt notes notmuch neck pain then denies neck pain. TTP of c spine with attending palpation. States he is in a hospital though. AB 1439 Pending BMP and addition IVF bolus. AB 1434 07/27/22 LVEF 61% AB 1433 Pt reassessed. VSS. 102/57 on NE. Downtrated from 0.1 to 0.05 AB 1431 700cc urine output with straight cath. CL 0930 Spoke with step-daughter and . Pt does not hydrate well and reduced PO over the past week. No hx of kidney disease. 2021 CMP demonstrates normal kidney function. CL [address] Malik. AD 0603 CXR done at this time AD 0538 Patient log rolled to pt's L side. C-spine precautions maintained. No step-offs or crepitus noted. Rectal tone intact, no blood noted. C-spine tenderness to palpation. Bulge and surgical scars in L spine. AD 0532 RR-25, HR- 89 BPM AD 0532 BIBEMS with c-collar and nasal cannula. AD 0526 Clinical Impression: 1. Shock (HCC) 2. Fall (on) (from) other stairs and steps, initial encounter 3. Acute midline low back pain without sciatica 4. Elevated CK 5. PRIYANKA (acute kidney injury) (HCC) 6. Non-traumatic rhabdomyolysis 7. Neck pain 8. Acute encephalopathy Disposition: Previous team admit pt to MICU. Unfortunately, was unable to titrate off of pressors while in the ER. By signing my name below, I, Maximino Pepoles , attest that this documentation has been prepared under the direction and in the presence of Dr. Pollack. Signed: Brayan Elizalde. I, Dr. Pollack, personally performed the services described in this documentation. All medical record entries made by the scribe were at my direction and in my presence. I have reviewed the chart and agree that the record reflects my personal performance and is accurate and complete. CREAM MACHINE OPERATOR Associated attestation - Allison Leung MD - 08/20/2024 8:23 AM 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 I have seen and examined the patient with the resident, Dr. Pollack, and I agree with the findings, planof care and ED course as documented by the resident. In addition, I note and/or revise: Care assumed from Dr. Malik. Has been admitted to MICU. Patient initial assessment by myself and team at 1431. Was supine on stretcher with aspen collar in place. C/O lower back pain. Wants c- collar off. Intermittently confused. Brownish discolored urine near bedside. Nursing states unchanged. Remains on low dose vaso pressors with labile BP. Lungs with equal A/E. C-spine CT scan reviewed with no evidence of acute findings but +c-spine tenderness without step-offs on exam. C-collar to remain in place. If unable to wean vasopressor, recommended CVC placement as prolonged administration of vasopressor through peripheral IV. Patient with <2 liters of crystalloids since admit. Will order a fluid bolus which may help with labile BP as well as clear CK. Trial IV pain meds as able with BP. Await ICU bed assignment. Continue to monitor. 1. Shock (HCC) 2. Fall (on) (from) other stairs and steps, initial encounter 3. Acute midline low back pain without sciatica 4. Elevated CK 5. PRIYANKA (acute kidney injury) (HCC) 6. Non-traumatic rhabdomyolysis 7. Neck pain 8. Acute encephalopathy 9. Gastroesophageal reflux disease with esophagitis without hemorrhage 10. Common bile duct dilatation Dispo:Admit to MICU Date of Service: 08/16/24?Allison Leung MD * Nguyễn Loyd RN - 08/16/2024 9:00 AM CST Family in [place], DO Anthony to update. CREAM MACHINE OPERATOR * Nguyễn Loyd RN - 08/16/2024 8:52 AM CST Pt provided urinal but unable to urinate att. CREAM MACHINE OPERATOR * Annabella Alexander RN - 08/16/2024 6:51 AM CST Isela english daughter [phone] CREAM MACHINE OPERATOR * Francesco Malik MD - 08/16/2024 6:09 AM CST ASSUMED CARE NOTE Patient signed out to me by Dr. Henning at 6:09 AM. Briefly, Ray Ashley is a 69 year old male is being evaluated for fall. At this time the patient'scondition is Critical. Pending CT imaging, trauma recs. Plan is CT imaging, trauma recs. Vitals: 08/16/24 0526 08/16/24 0530 08/16/24 0545 08/16/24 0605 BP: 107/78 107/78 (!) 65/40 86/53 Pulse: 89 89 84 80 Resp: 20 16 16 10 Temp: 97.6 ??F (36.4 ??C) SpO2: 95% Weight: 68 kg (150 lb) Height: 1.829 m (6') ED Course: 0630: Patient admitted to Trauma - ICU at this time after discussion with trauma team. 0800: Discussed case with trauma, no traumatic injuries noted on CT imaging so they are requesting MICU admission. 1115: Patient admitted to MICU at this time. 1400: Patient signed out to Dr. Leung pending inpatient bed availability. Clinical Impression: 1. Shock (HCC) 2. Fall (on) (from) other stairs and steps, initial encounter Disposition: Admit to MICU I, Dr. Malik, personally performed the services described in this documentation. All medical record entries made by the scribe were at my direction and in my presence. I have reviewed the chart and agree that the record reflects my personal performance and is accurate and complete. CREAM MACHINE OPERATOR * Annabella Alexander RN - 08/16/2024 5:52 AM CST Pt BIB EMS from [facility] following fall down 10 steps 08/15. Family reports pt became moreconfused after so they called EMS. Pt was hypotensive for EMS 50s/palp. OSH reports concern of neurogenic shock, c spine fracture. 2L NS, levophed running at 11mcg/min, 100 fentanyl from OSH. Pt takes plavix. Pt reports prior back surgery with lumbar bulge ever since. GCS 14. CREAM MACHINE OPERATOR * Chet Henning MD - 08/16/2024 5:43 AM CST Emergency Medicine Attending Note Chief Complaint Patient presents with Fall Pt BIB EMS from OSH following fall down 10 steps yesterday 08/15, OSH concern neurogenic shock Ray Ashley is a 69 year old male h/o HTN, hepatitis, arthritis, osteoarthritis BIBEMS as a transfer from [facility], per EMS pt's family noticed AMS and pt c/o back pain after falling down 10 stairs 12+ hours ago. Per EMS, last BP was 126/69, 2 L fluids were administered at OSH, 11 microliters/min levo, and OSH doctor has a target MAP of 90. Per EMS, pt has a bulge in his back from previous surgery, pt has new tremors. Pt c/o back pain and head pain. Pt denies chest pain and LOC. Per EMS, pt is allergic to NSAIDs, ibuprofen, and prednisone. Pt denies alcohol consumption and drug useand reports smoking 1/2 ppd all his life. Past Medical History: Diagnosis Date Chronic back pain COPD (chronic obstructive pulmonary disease) (HCC) Essential (primary) hypertension Hypothyroidism Neuropathy Past Surgical History: Procedure Laterality Date Lumbar Laminectomy Social History Socioeconomic History Marital status: Spouse name: Not on file Number of children: Not on file Years of education: Not on file Highest education level: Not on file Occupational History Not on file Tobacco Use Smoking status: Not on file Smokeless tobacco: Not on file Substance and Sexual Activity Alcohol use: Not on file Drug use: Not on file Sexual activity: Not on file Other Topics Concern Not on file Social History Narrative Not on file Social Determinants of Health Financial Resource Strain: Not on file Food Insecurity: Not on file Transportation Needs: Not on file Stress: Not on file Housing Stability: Not on file Allergies Allergen Reactions Nsaids Unknown, GI Discomfort and Shortness of Breath Prednisone Unknown and Shortness of Breath Review of Systems: (+) positive Review of Systems Constitutional: Negative for chills, fever and malaise/fatigue. Eyes: Negative for blurred vision, pain and discharge. Respiratory: Negative for shortness of breath. Cardiovascular: Negative for chest pain and palpitations. Gastrointestinal: Negative for abdominal pain and vomiting. Genitourinary: Negative for dysuria and frequency. Musculoskeletal: Positive for back pain, falls and myalgias. Negative for joint pain. Head pain Neurological: Positive for tremors. Negative for sensory change, focal weakness and loss of consciousness. ROS as above in HPI otherwise noncontributory. Physical Exam Vitals: 08/18/24 0014 08/18/24 0400 08/18/24 0420 08/18/24 0751 BP: 144/72 153/91 145/75 Pulse: 81 89 86 Resp: Temp: 99 ??F (37.2 ??C) 98.8 ??F (37.1 ??C) 98.4 ??F (36.9 ??C) SpO2: 94% 95% 95% Weight: 74.5 kg (164 lb 3.2 oz) Height: Physical Exam Vitals and nursing note reviewed. Constitutional: General: He is not in acute distress. Appearance: He is not diaphoretic. Interventions: Cervical collar and nasal cannula in place. HENT: Head: Normocephalic and atraumatic. Mouth/Throat: Mouth: Mucous membranes are moist. Eyes: General: No scleral icterus. Extraocular Movements: Extraocular movements intact. Conjunctiva/sclera: Conjunctivae normal. Pupils: Pupils are equal, round, and reactive to light. Comments: Pupils 3mm ERRL bilaterally. Cardiovascular: Rate and Rhythm: Normal rate and regular rhythm. Pulses: Normal pulses. Carotid pulses are 2+ on the right side and 2+ on the left side. Radial pulses are 2+ on the right side and 2+ on the left side. Femoral pulses are 2+ on the right side and 2+ on the left side. Heart sounds: No murmur heard. Comments: BLE undetectable with doppler Pulmonary: Effort: Pulmonary effort is normal. No respiratory distress. Breath sounds: Normal breath sounds. No wheezing. Abdominal: General: There is no distension. Palpations: Abdomen is soft. Tenderness: There is no abdominal tenderness. Musculoskeletal: General: No swelling or deformity. Normal range of motion. Cervical back: Normal range of motion and neck supple. Tenderness present. Thoracic back: Normal. Lumbar back: Normal. Comments: Bulge and surgical scars in L spine. Skin: General: Skin is warm and dry. Findings: Abrasion and rash present. No bruising. Comments: 1 cm x 1 cm and 2 cm abrasions to R lateral forearm, cold to touch in BLE, small rash to R shoulder Neurological: General: No focal deficit present. Mental Status: He is alert and oriented to person, place, and time. Comments: RAMOS spontaneously and equally. A& O x3. Psychiatric: Mood and Affect: Mood normal. Behavior: Behavior normal. Medical Decision Makin69 year old male with above history brought for evaluation of AMS, back pain, and head pain after falling down 10 stairs. DDx: CIH fractures dislocation ligamentous vs neurovascular injury vs intraabdominal injury vs hollow viscous injury vs neurogenic shock vs other. Plan is for imaging, labs, fluids, symptom control. I also externally reviewed previous records that I had access to within [facility] and noted relevant statements in my HPI. 1. Work Up - See lab and radiology orders 2. Therapy - See orders Social determinants of health: Social Determinants of Health Tobacco Use: Medium Risk (07/30/2022) Received from [facility] Patient History Smoking Tobacco Use: Former Smokeless Tobacco Use: Never Passive Exposure: Not on file Alcohol Use: Not At Risk (08/16/2024) AUDIT-C Frequency of Alcohol Consumption: Never Average Number of Drinks: Patient does not drink Frequency of Binge Drinking: Never Financial Resource Strain: Not on file Food Insecurity: Not on file Transportation Needs: Not on file Stress: Not on file Depression: Not on file Housing Stability: Not on file Data Review: (All Labs/Imaging/ECG, other diagnostics independently interpreted by me.) Amount and/or Complexity of Data Reviewed medical complexity: medical complexity, Triage notes and available nursing notes reviewed , Clinical lab tests: ordered and reviewed, Tests in the radiology section of CPT??: ordered and independent interpretation, Independent visualization of images: yes, Decide to obtain previous medical records or to obtain history from someone other than the patient: yes, see HPI , Review and summarize past medical records: yes , and Discuss the patient with other providers: yes The patient's Oxygen Saturation Monitor was interpreted by me. The reading was 95%. The patient wason room air at the time of the reading. This is interpreted as normal. - LABS: Labs Reviewed BASIC METABOLIC PANEL (CALCIUM TOTAL) - Abnormal; Notable for the following components: Result Value BUN 49 (*) Creatinine 5.74 (*) CO2 14 (*) Glucose 123 (*) Calcium 7.8 (*) Anion Gap 18 (*) Osmolality Calculated 296 (*) eGFR by CKD-EPI 10 (*) All other components within normal limits CBC W AUTO DIFFERENTIAL - Abnormal; Notable for the following components: WBC 17.4 (*) RBC Count 4.26 (*) MCV 102.1 (*) MCH 34.0 (*) Neutrophil % 87.6 (*) Lymphocyte % 4.4 (*) Neutrophil Absolute 15.27 (*) Lymphocyte Absolute 0.77 (*) Monocyte Absolute 1.27 (*) All other components within normal limits URINE DRUG SCREEN IMMUNOASSAY - Abnormal; Notable for the following components: Opiates Urine Positive (*) Fentanyl Screen Urine Positive (*) All other components within normal limits Narrative: The Urine Toxicology Screening Panel does not screen for Propoxyphene, Meprobamate, Carisoprodol, Trazodone, vkun-egh-mbonalo medications and/or volatiles (Acetone, Isopropanol, Methanol or Ethylene Glycol). Ethanol, Salicylate, Acetaminophen, Tricyclic Antidepressants and several therapeutic drugsmay be individually assayed in serum or plasma specimen. Toxicology testing by the [facility] is an aid to medical diagnosisand treatment of patients. No documented chain of custody was maintained. Results are intended to be used for clinical purposes only. SALICYLATE LEVEL BLOOD - Abnormal; Notable for the following components: Salicylate <5 (*) All other components within normal limits Narrative: This test is not intended for use with low-dose aspirin therapy. Most patients on low-dose aspirin for cardiovascular prophylaxis will have serum concentrations near or below the lower limit of the analytical range. TRICYCLICS SCREEN BLOOD - Abnormal; Notable for the following components: Tricyclic Antidepressants 248 (*) All other components within normal limits Narrative: Many drugs significantly cross-react with this assay, including: diphenhydramine, cyclobenzoprine, gabapentin, and fluoxetine. Results should be confirmed by quantitative mass spectrometry. This assay should not be used for following trends. Expected Values for Tricyclic Antidepressants: Pharmacokinetic studies have shown there is a marked individual variation in the therapeutic and toxic response to tricyclic antidepressants at similar blood concentrations. Cardiac effects have beendemonstrated with TCA blood levels as low as 50-100 ng/mL. With TCA levels >500 ng/mL, the incidence of serious cardiac toxicity increases significantly. With TCA levels >1000 ng/mL, severe, sometimes fatal, cardiac and other side effects often occur. URINALYSIS REFLEX MICROSCOPIC REFLEX CULTURE - Abnormal; Notable for the following components: Color UA Rosario (*) Clarity UA Slt Cloudy (*) Specific [place] UA 1.041 (*) Protein UA 1+ (*) Blood UA 3+ (*) Urobilinogen UA 2.0 (*) All other components within normal limits Narrative: HEPATIC FUNCTION PANEL - Abnormal; Notable for the following components: Protein Total 5.7 (*) Albumin 2.7 (*) AST 78 (*) Albumin/Globulin Ratio 0.9 (*) All other components within normal limits URINE MICROSCOPIC ONLY REFLEX TO CULTURE - Abnormal; Notable for the following components: RBC UA 6-10 (*) Bacteria UA 1+ (*) Squamous Epithelial Cells UA 6-10 (*) Hyaline Casts UA 3-5 (*) All other components within normal limits CK BLOOD - Abnormal; Notable for the following components: CK Total 5,864 (*) All other components within normal limits BASIC METABOLIC PANEL (CALCIUM TOTAL) - Abnormal; Notable for the following components: BUN 54 (*) Creatinine 5.58 (*) Potassium 5.0 (*) CO2 14 (*) Calcium 7.8 (*) Anion Gap 23 (*) Osmolality Calculated 300 (*) eGFR by CKD-EPI 10 (*) All other components within normal limits CBC W AUTO DIFFERENTIAL - Abnormal; Notable for the following components: RBC Count 4.05 (*) MCV 99.0 (*) MCH 33.8 (*) Platelet Count 144 (*) Neutrophil % 81.7 (*) Lymphocyte % 8.1 (*) Neutrophil Absolute 7.56 (*) Lymphocyte Absolute 0.75 (*) All other components within normal limits COMPREHENSIVE METABOLIC PANEL - Abnormal; Notable for the following components: BUN 46 (*) Creatinine 2.85 (*) Chloride 110 (*) CO2 21 (*) Glucose 108 (*) Calcium 7.9 (*) Protein Total 5.7 (*) Albumin 2.7 (*) AST 87 (*) Osmolality Calculated 304 (*) Albumin/Globulin Ratio 0.9 (*) eGFR by CKD-EPI 23 (*) All other components within normal limits LACTIC ACID BLOOD - Abnormal; Notable for the following components: Lactic Acid-Stat 2.6 (*) All other components within normal limits BLOOD GASES ART + COOX PANEL - Abnormal; Notable for the following components: pH Arterial 7.29 (*) pO2 Arterial 61 (*) BE Arterial -6.1 (*) Carboxyhemoglobin 2.6 (*) All other components within normal limits Narrative: Carboxyhemoglobin Normal Concentration: Non-smokers: 0-2%; Smokers: 0-9%; Toxic: >20% DRUG SCREEN EXPANDED TOXICOLOGY URINE PANEL - Abnormal; Notable for the following components: Expanded Drug Screen, Urine Positive (*) All other components within normal limits Narrative: Testing performed by Liquid Chromatography-Quadrupole Time Flight Mass Spectrometry. While mass spectrometry is highly sensitive and specific, false- positive and false-negative findings may occur in rare circumstances. If consultation is needed, please contact the Clinical Pathology Resident drywall application supervisor at [phone] (M-F, 8 am - 5 pm) or [phone] after hours. This test does not include THC or barbiturates. This testing was developed by the [facility] in keeping with CLIA requirements. The test has not been cleared or approved by the U.S. Food and Drug Administration. PT-INR [facility] - Abnormal; Notable for the following components: PT 21.7 (*) All other components within normal limits PHOSPHORUS BLOOD - Abnormal; Notable for the following components: Phosphorus 1.8 (*) All other components within normal limits MAGNESIUM BLOOD - Abnormal; Notable for the following components: Magnesium 1.3 (*) All other components within normal limits COMPREHENSIVE METABOLIC PANEL - Abnormal; Notable for the following components: BUN 27 (*) Chloride 111 (*) CO2 18 (*) Calcium 7.1 (*) Protein Total 3.6 (*) Albumin 1.7 (*) AST 43 (*) BUN/Creatinine Ratio 24 (*) Albumin/Globulin Ratio 0.9 (*) eGFR by CKD-EPI 70 (*) All other components within normal limits CBC W AUTO DIFFERENTIAL - Abnormal; Notable for the following components: RBC Count 2.10 (*) Hemoglobin 7.1 (*) Hematocrit 21.6 (*) MCV 102.9 (*) MCH 33.8 (*) Platelet Count 74 (*) Neutrophil % 77.6 (*) Lymphocyte % 10.5 (*) Lymphocyte Absolute 0.43 (*) All other components within normal limits CK BLOOD - Abnormal; Notable for the following components: CK Total 1,786 (*) All other components within normal limits LACTIC ACID BLOOD - Abnormal; Notable for the following components: Lactic Acid-Stat 12.3 (*) All other components within normal limits VITAMIN B12 - Abnormal; Notable for the following components: Vitamin B12 182 (*) All other components within normal limits TSH - Abnormal; Notable for the following components: TSH 0.112 (*) All other components within normal limits CBC W/O DIFFERENTIAL - Abnormal; Notable for the following components: RBC Count 3.53 (*) Hemoglobin 12.0 (*) Hematocrit 35.3 (*) MCV 100.0 (*) MCH 34.0 (*) Platelet Count 118 (*) All other components within normal limits BASIC METABOLIC PANEL (CALCIUM TOTAL) - Abnormal; Notable for the following components: BUN 36 (*) Creatinine 1.50 (*) Chloride 111 (*) Glucose 103 (*) Calcium 7.8 (*) BUN/Creatinine Ratio 24 (*) Osmolality Calculated 303 (*) eGFR by CKD-EPI 51 (*) All other components within normal limits PHOSPHORUS BLOOD - Abnormal; Notable for the following components: Phosphorus 1.1 (*) All other components within normal limits COMPREHENSIVE METABOLIC PANEL - Abnormal; Notable for the following components: Chloride 111 (*) Calcium 7.9 (*) Protein Total 5.0 (*) Albumin 2.4 (*) AST 53 (*) BUN/Creatinine Ratio 29 (*) Albumin/Globulin Ratio 0.9 (*) All other components within normal limits CBC W AUTO DIFFERENTIAL - Abnormal; Notable for the following components: WBC 3.8 (*) RBC Count 3.38 (*) Hemoglobin 11.5 (*) Hematocrit 33.2 (*) MCV 98.2 (*) MCH 34.0 (*) Platelet Count 108 (*) Lymphocyte % 16.8 (*) Lymphocyte Absolute 0.63 (*) All other components within normal limits GLUCOSE - POINT OF CARE - Abnormal; Notable for the following components: Glucose WB/POC 141 (*) All other components within normal limits GLUCOSE - POINT OF CARE - Abnormal; Notable for the following components: Glucose WB/POC 115 (*) All other components within normal limits CULTURE BLOOD - Normal CULTURE BLOOD - Normal CULTURE URINE - Normal ALCOHOL ETHYL BLOOD - Normal Narrative: Ethanol Interp <10: None Detected. Depression of GLASS BLOWING INSTRUCTOR: >100 mg/dl Potentially Critical: >250 mg/dl Potentially Fatal >400 mg/dl Ethanol in the patient's blood will contribute to the osmolar gap. Ethanol's contribution to the osmolar gap can be estimated by dividing the concentration of ethanol in mg/dL by 4.6. This test is for clinical use only and does not equal a JF for legal purposes. LIPASE BLOOD - Normal Narrative: Lipase results from the [facility] Alinity analyzer may not be comparable with other methodologies. PTT [facility] - Normal PT-INR [facility] - Normal ACETAMINOPHEN LEVEL - Normal Narrative: Acetaminophen Toxicity Levels (Hours Post Ingestion): >200 ug/mL at 4 hours >100 ug/mL at 8 hours >50 ug/mL at 12 hours For acute ingestion, please refer to Acetaminophen nomogram to determine the risk of toxicity basedon time since ingestion and acetaminophen level (see link provided). Note the nomogram disclaimer. WARNING: Assessing the potential toxicity of an acetaminophen level on a standard risk nomogram must take into consideration many factors including any uncertainty of the time since ingestion or the possibility of other medications that may alter the peak level. Contact the [facility] at or reserved for healthcare professionals to assist you in evaluatingpotentially toxic acetaminophen levels. LACTIC ACID BLOOD REFLEX TO REPEAT - Normal MAGNESIUM BLOOD - Normal PHOSPHORUS BLOOD - Normal SYPHILIS ANTIBODY CASCADING REFLEX - Normal LACTIC ACID BLOOD - Normal PT-INR [facility] - Normal MAGNESIUM BLOOD - Normal LACTIC ACID BLOOD - Normal CULTURE SPUTUM+GRAM STAIN LYTES (NA K) URINE RANDOM PANEL CREATININE URINE RANDOM UREA NITROGEN URINE RANDOM HEMOGLOBIN A1C TYPE + SCREEN PANEL GLUCOSE - POINT OF CARE - IMAGING: XR PELVIS 1 OR 2VW Final Result EXAMINATION: XR PELVIS 1 OR 2VW DATE/TIME OF EXAM: 08/16/2024 7:22 AM, LOCATION [facility] HISTORY: Trauma Fracture suspected COMPARISON: [...] identified. Report dictated by Rafi Vicente MD (administrative resident). I, Mason Lucero have personally reviewed and interpreted this examination/study. > Interpreting Provider: Mason Lucero on 08/16/2024 3:[address] HEAD WO CONTRAST - Head Trauma, CSF leak, mental status changes Final Result PROCEDURE: CT HEAD WO CONTRAST, CT LUMBAR SPINE WO CONTRAST, CT THORACIC SPINE WO CONTRAST, CT CERVICAL SPINE WO CONTRAST, DATE/TIME OF EXAM: 08/16/2024 7:20 AM, LOCATION [facility] INDICATION: Trauma EXAMINATION: 1.Computed tomography [...] branch vessels. Tortuosity of the abdominal aorta. IMPRESSION: 1.No acute intracranial [...] findings. Report dictated by Rafi Vicente MD (administrative resident). IRuby MD have personally reviewed and interpreted this examination/study. > Interpreting Provider: Ruby Villanueva MD on 08/16/2024 10:[address] CERVICAL SPINE WO CONTRAST - C-Spine Trauma, Spine fracture Final Result PROCEDURE: CT HEAD WO CONTRAST, CT LUMBAR SPINE WO CONTRAST, CT THORACIC SPINE WO CONTRAST, CT CERVICAL SPINE WO CONTRAST, DATE/TIME OF EXAM: 08/16/2024 7:20 AM, LOCATION [facility] INDICATION: Trauma EXAMINATION: 1.Computed tomography [...] branch vessels. Tortuosity of the abdominal aorta. IMPRESSION: 1.No acute intracranial [...] findings. Report dictated by Rafi Vicente MD (administrative resident). I, Ruby Villanueva MD have personally reviewed and interpreted this examination/study. > Interpreting Provider: Ruby Villanueva MD on 08/16/2024 10:[address] CHEST ABDOMEN PELVIS W CONT - Abdomen-pelvis trauma, blunt or penetrating Final Result PROCEDURE: CT CHEST ABDOMEN PELVIS W CONT, DATE/TIME OF EXAM: 08/16/2024 7:20 AM, LOCATION [facility] INDICATION: Trauma COMPARISON: None. EXAMINATION: [...] retrolisthesis of L4 on L5. Diffuse osteopenia Impression 1. No acute visceral, [...] gastroesophageal reflux/esophagitis. Report dictated by Bryon Watson MD(administrative resident). I, Viviana Rain MD have personally reviewed and interpreted this examination/study. > Interpreting Provider: Viviana Rain MD on 08/16/2024 5:[address] THORACIC SPINE WO CONTRAST - T/L-spine trauma, spine fracture Final Result PROCEDURE: CT HEAD WO CONTRAST, CT LUMBAR SPINE WO CONTRAST, CT THORACIC SPINE WO CONTRAST, CT CERVICAL SPINE WO CONTRAST, DATE/TIME OF EXAM: 08/16/2024 7:20 AM, LOCATION [facility] INDICATION: Trauma EXAMINATION: 1.Computed tomography [...] branch vessels. Tortuosity of the abdominal aorta. IMPRESSION: 1.No acute intracranial [...] findings. Report dictated by Rafi Vicente MD (administrative resident). I, Ruby Villanueva MD have personally reviewed and interpreted this examination/study. > Interpreting Provider: Ruby Villanueva MD on 08/16/2024 10:[address] LUMBAR SPINE WO CONTRAST - T/L-spine trauma, Spine fracture Final Result PROCEDURE: CT HEAD WO CONTRAST, CT LUMBAR SPINE WO CONTRAST, CT THORACIC SPINE WO CONTRAST, CT CERVICAL SPINE WO CONTRAST, DATE/TIME OF EXAM: 08/16/2024 7:20 AM, LOCATION [facility] INDICATION: Trauma EXAMINATION: 1.Computed tomography [...] branch vessels. Tortuosity of the abdominal aorta. IMPRESSION: 1.No acute intracranial [...] findings. Report dictated by Rafi Vicente MD (administrative resident). I, Ruby Villanueva MD have personally reviewed and interpreted this examination/study. > Interpreting Provider: Ruby Villanueva MD on 08/16/2024 10:[address] Angio Lower Extremity Left Final Result PROCEDURE: CT ANGIO LOWER EXTREMITY RIGHT, CT ANGIO LOWER EXTREMITY LEFT, DATE/TIME OF EXAM: 08/16/2024 7:20 AM, LOCATION [facility] INDICATION: W10.8XXA: Fall (on) (from) other stairs and steps, initial encounter Ordering Provider Reason For Exam: trauma, no doppler DPT/PT (LE) pulses b/l COMPARISON: [...] bleeding. > Dictated by Felix Awad MD (administrative resident). I, Viviana Rain MD have personally reviewed and interpreted this examination/study. > Interpreting Provider: Viviana Rain MD on 08/16/2024 5:[address] Angio Lower Extremity Right Final Result PROCEDURE: CT ANGIO LOWER EXTREMITY RIGHT, CT ANGIO LOWER EXTREMITY LEFT, DATE/TIME OF EXAM: 08/16/2024 7:20 AM, LOCATION [facility] INDICATION: W10.8XXA: Fall (on) (from) other stairs and steps, initial encounter Ordering Provider Reason For Exam: trauma, no doppler DPT/PT (LE) pulses b/l COMPARISON: [...] bleeding. > Dictated by Felix Awad MD (administrative resident). Viviana Brizuela MD have personally reviewed and interpreted this examination/study. > Interpreting Provider: Viviana Rain MD on 08/16/2024 5:06 PM XR CHEST 1VW PORTABLE Final Result PROCEDURE: XR CHEST 1VW PORTABLE, DATE/TIME OF EXAM: 08/16/2024 5:44 AM, LOCATION [facility] INDICATION: Trauma ADDITIONAL CLINICAL INFORMATION: [...] visualized. Report dictated by Rafi Vicente MD (administrative resident). Mason Brizuela have personally reviewed and interpreted this examination/study. > Interpreting Provider: Mason Lucero on 08/16/2024 2:29 PM No results found. - MEDS: Medications 0.9% NaCl injection 3 mL (3 mL Intracatheter $ Given 08/18/24918) And 0.9% NaCl injection 1-10 mL (10 mL Intracatheter $ Given 08/17/24 1438) Xwtlrnw-Yqlqp-Bhvem Pertussis Vaccine (Boostrix; 7y+) (Tdap) 0.5 mL (0.5 mL Intramuscular Not Administered 08/16/24657) iopamidol (Isovue 370) 76 % contrast (100 mL Intravenous $ Given - Contrast 08/16/24616) albuterol-ipratropium (Duo-Neb) nebulizer solution 3 mL (has no administration in time range) cefTRIAXone (Rocephin) syringe 2,000 mg (2,000 mg Intravenous $ Given 08/17/242036) heparin injection 5,000 Units (5,000 Units Subcutaneous $ Given 12/17/24 0918) glucose (Diabetic Use) oral gel (has no administration in time range) dextrose IV 12.5 g (has no administration in time range) Or dextrose IV 25 g (has no administration in time range) Or glucagon (Glucagen) injection 1 mg (has no administration in time range) senna (Senokot) tablet 8.6 mg (8.6 mg Oral $ Given 08/18/24918) DULoxetine (Cymbalta) capsule 60 mg (60 mg Oral $ Given 08/18/24917) gabapentin (Neurontin) capsule 300 mg (300 mg Oral $ Given 08/18/24918) levothyroxine (Synthroid) tablet 50 mcg (50 mcg Oral $ Given 08/18/24617) lisinopril (Prinivil; Zestril) tablet 20 mg ( Oral Dose Held 08/23/24899) morphine IR (MSIR) tablet 30 mg ( Oral Held by Provider 08/16/242132) HYDROcodone-acetaminophen ([place]) 10-325 MG tablet 1 tablet (1 tablet Oral $ Given 08/18/24617) pantoprazole EC (Protonix) tablet 40 mg (40 mg Oral $ Given 08/18/24917) cyclobenzaprine (Flexeril) tablet 10 mg ( Oral Held by Provider 08/16/242132) traZODone (Desyrel) tablet 100 mg (100 mg Oral $ Given 08/17/242038) lactated ringers infusion ( Intravenous $ New Bag/Syringe 08/17/241758) lidocaine (Lidoderm) 5 % patch 1 patch (has no administration in time range) sodium phosphate 30 mmol in 260 mL bolus (has no administration in time range) sodium - potassium phosphates (K Phos Neutral) tablet 2 tablet (2 tablets Oral $ Given 08/18/24917) azithromycin (Zithromax) tablet 500 mg (500 mg Oral $ Given 08/18/24918) fentaNYL (PF) (Sublimaze) injection 50 mcg (50 mcg Intravenous $ Given 08/16/24 0542) fentaNYL (PF) (Sublimaze) injection 50 mcg (50 mcg Intravenous $ Given 08/16/24 0710) 0.9% NaCl IV bolus (0 mL Intravenous Stopped 08/16/24 1107) lactated ringers IV bolus (0 mL Intravenous Stopped 08/16/242042) polyethylene glycol 3350 (Miralax) packet 17 g (17 g Oral $ Given 08/16/242203) perflutren lipid microsphere (Definity) injection 1.5 mL (1.5 mL Intravenous $ Given 08/17/24 1437) Procedure done at this time No Ultrasound done at this time No Medications given in ED: Yes Medications prescribed: No Revised home medications: No ED COURSE ED Course as of 08/18/24 0921 Sun Aug 16, 2024 0526 BIBEMS with c-collar and nasal cannula. [AD] 0532 RR-25, HR- 89 BPM [AD] 0532 Patient log rolled to pt's L side. C-spine precautions maintained. No step- offs or crepitus noted. Rectal tone intact, no blood noted. C-spine tenderness to palpation. Bulge and surgical scars in L spine. [AD] 0538 CXR done at this time [AD] [address] Malik. [AD] 0923 Spoke with step-daughter and . Pt does not hydrate well and reduced PO over the past week. No hx of kidney disease. 2021 CMP demonstrates normal kidney function. [CL] 0930 700cc urine output with straight cath. [CL] 1431 Pt reassessed. VSS. 102/57 on NE. Downtrated from 0.1 to 0.05 [AB] 1433 07/27/22 LVEF 61% [AB] 1434 Pending BMP and addition IVF bolus. [AB] 1439 Patient states last name when asked for first and last. He also states it's when asked for the year. Inquesting on pain inconsistent with complaining of back pain then denying. Pt notes not much neck pain then denies neck pain. TTP of c spine with attending palpation. States he is in a hospital though. [AB] 1503 Creatinine(!): 5.58 Improved from 5.74 [AB] 1548 Reassessed the patient. Patient is resting comfortably.Pt nurse unable to wean pt off of levophed.Pt still c/o of lower back pain.Pt's C collar is still on. On exam pt has pointed upper C spine tenderness, intermittently confused,lungs are diminished bilaterally with equal air exchanged. Performed POCUS to look at contractility of heart.Pt had brownish urine at bedside.Will be giving pt 1500cc IV to see if pt will get better in order to wean off of levophed.VSS. [KH] 1552 Lactic Acid-Stat: 1.7 Not elevated. [AB] 1753 Patient at this time has a bed assigned with MICU service. Patient to be transferred to their inpatient bed. [KH] 1758 Titrating NE 0.05 [AB] ED Course User Index [AB] Carolina Pollack MD [AD] Tracy Joshua [CL] Oleg Cruz DO [KH] Maximino Peoples Clinical Impressions as of 08/18/24 0921 Fall (on) (from) other stairs and steps, initial encounter Shock (HCC) Acute midline low back pain without sciatica Elevated CK PRIYANKA (acute kidney injury) (HCC) Non-traumatic rhabdomyolysis Neck pain Acute encephalopathy Acute problems: Refer to HPI Exacerbations of chronic problems: Refer to HPI Systemic issues: Refer to HPI and/or SDOH Consultations in the ED: Refer to ED Course Medication changes: Refer to ED Course Follow up: Refer to ED Course CRITICAL CARE IN THE ED: Patient is critically ill due to: 1. Shock (HCC) 2. Fall (on) (from) other stairs and steps, initial encounter 3. Acute midline low back pain without sciatica 4. Elevated CK 5. PRIYANKA (acute kidney injury) (HCC) 6. Non-traumatic rhabdomyolysis 7. Neck pain 8. Acute encephalopathy - Patient is at high risk for complications and morbidity or mortality. YES - Patient is critically ill with vital organ impairment or failure. YES - There is high probability of imminent or life threatening deterioration in the patient's condition. YES - Patient is unable or incompetent to participate in giving a history and/or making decisions and discussion is necessary for determining treatment decisions. NO Time involved in the performance of separately billable procedures, teaching, reviewing education material was not counted towards critical care time. Time with bedside care: 30 minutes Time in discussion with family: 0 minutes Time reviewing old medical records: 5 minutes Time reviewing labs/radiographs/ECG (and other diagnostics): 10 minutes Time with Paid Intern services: 10 minutes Time completing documentation: 5 minutes I was directly involved in the patient's care for a Total Critical Care Time of: 60 minutes Orders and Medicine administered during this encounter: Orders Placed This Encounter CULTURE SPUTUM+GRAM STAIN CULTURE BLOOD CULTURE URINE CT HEAD WO CONTRAST - Head Trauma, CSF leak, mental status changes CT CERVICAL SPINE WO CONTRAST - C-Spine Trauma, Spine fracture CT CHEST ABDOMEN PELVIS W CONT - Abdomen-pelvis trauma, blunt or penetrating CT THORACIC SPINE WO CONTRAST - T/L-spine trauma, spine fracture CT LUMBAR SPINE WO CONTRAST - T/L-spine trauma, Spine fracture XR CHEST 1VW PORTABLE XR PELVIS [address] Angio Lower Extremity Left CT Angio Lower Extremity Right ALCOHOL ETHYL BLOOD BASIC METABOLIC PANEL (CALCIUM TOTAL) CBC W AUTO DIFFERENTIAL LIPASE BLOOD PTT [facility] PT-INR [facility] URINE DRUG SCREEN IMMUNOASSAY SALICYLATE LEVEL BLOOD TRICYCLICS SCREEN BLOOD ACETAMINOPHEN LEVEL URINALYSIS REFLEX MICROSCOPIC REFLEX CULTURE LYTES (NA K) URINE RANDOM PANEL CREATININE URINE RANDOM UREA NITROGEN URINE RANDOM HEPATIC FUNCTION PANEL URINE MICROSCOPIC ONLY REFLEX TO CULTURE CK BLOOD BASIC METABOLIC PANEL (CALCIUM TOTAL) LACTIC ACID BLOOD REFLEX TO REPEAT PHOSPHORUS BLOOD MAGNESIUM BLOOD COMPREHENSIVE METABOLIC PANEL CBC W AUTO DIFFERENTIAL CBC W AUTO DIFFERENTIAL COMPREHENSIVE METABOLIC PANEL LACTIC ACID BLOOD MAGNESIUM BLOOD PHOSPHORUS BLOOD BLOOD GASES ART + COOX PANEL CK BLOOD HEMOGLOBIN A1C VITAMIN B12 SYPHILIS ANTIBODY CASCADING REFLEX DRUG SCREEN EXPANDED TOXICOLOGY URINE PANEL TSH LACTIC ACID BLOOD CBC W/O DIFFERENTIAL BASIC METABOLIC PANEL (CALCIUM TOTAL) OXYGEN WITHOUT TITRATION (ADULT) EKG 12-LEAD norepinephrine (Levophed) 8 mg/250 ml NS infusion premix ADS Med AND Linked Order Group 0.9% NaCl injection 3 mL 0.9% NaCl injection 1-10 mL Ekacpdv-Osppn-Futzg Pertussis Vaccine (Boostrix; 7y+) (Tdap) 0.5 mL iopamidol (Isovue 370) 76 % contrast fentaNYL (Sublimaze) injection 0.05 mg/mL ADS Med DISCONTD: norepinephrine (Levophed) 8 mg/250 ml NS infusion premix fentaNYL (PF) (Sublimaze) injection 50 mcg albuterol-ipratropium (Duo-Neb) nebulizer solution 3 mL fentaNYL (PF) (Sublimaze) injection 50 mcg 0.9% NaCl IV bolus DISCONTD: lactated ringers infusion lactated ringers IV bolus DISCONTD: sodium bicarbonate 8.4 % 150 mEq in dextrose 5 % 1,150 mL IVF cefTRIAXone (Rocephin) syringe 2,000 mg DISCONTD: metroNIDAZOLE (Flagyl) 500 mg in 100 mL IVPB heparin injection 5,000 Units glucose (Diabetic Use) oral gel OR Linked Order Group dextrose IV 12.5 g dextrose IV 25 g glucagon (Glucagen) injection 1 mg senna (Senokot) tablet 8.6 mg polyethylene glycol 3350 (Miralax) packet 17 g DISCONTD: lactated ringers infusion DULoxetine (Cymbalta) capsule 60 mg gabapentin (Neurontin) capsule 300 mg levothyroxine (Synthroid) tablet 50 mcg lisinopril (Prinivil; Zestril) tablet 20 mg morphine IR (MSIR) tablet 30 mg HYDROcodone-acetaminophen ([place]) 10-325 MG tablet 1 tablet pantoprazole EC (Protonix) tablet 40 mg DISCONTD: traZODone (Desyrel) tablet 100 mg cyclobenzaprine (Flexeril) tablet 10 mg DISCONTD: FLUoxetine (PROzac) capsule 60 mg traZODone (Desyrel) tablet 100 mg lactated ringers infusion perflutren lipid microsphere (Definity) injection 1.5 mL lidocaine (Lidoderm) 5 % patch 1 patch sodium phosphate 30 mmol in 260 mL bolus sodium - potassium phosphates (K Phos Neutral) tablet 2 tablet azithromycin (Zithromax) tablet 500 mg Medications 0.9% NaCl injection 3 mL (3 mL Intracatheter $ Given 08/18/24 0919) And 0.9% NaCl injection 1-10 mL (10 mL Intracatheter $ Given 08/17/24 1438) Zxrhchp-Ojxch-Vdbjo Pertussis Vaccine (Boostrix; 7y+) (Tdap) 0.5 mL (0.5 mL Intramuscular Not Administered 08/16/24 0658) iopamidol (Isovue 370) 76 % contrast (100 mL Intravenous $ Given - Contrast 08/16/24 0617) albuterol-ipratropium (Duo-Neb) nebulizer solution 3 mL (has no administration in time range) cefTRIAXone (Rocephin) syringe 2,000 mg (2,000 mg Intravenous $ Given 12/16/24 2037) heparin injection 5,000 Units (5,000 Units Subcutaneous $ Given 08/18/24917) glucose (Diabetic Use) oral gel (has no administration in time range) dextrose IV 12.5 g (has no administration in time range) Or dextrose IV 25 g (has no administration in time range) Or glucagon (Glucagen) injection 1 mg (has no administration in time range) senna (Senokot) tablet 8.6 mg (8.6 mg Oral $ Given 08/18/24918) DULoxetine (Cymbalta) capsule 60 mg (60 mg Oral $ Given 08/18/24917) gabapentin (Neurontin) capsule 300 mg (300 mg Oral $ Given 08/18/24918) levothyroxine (Synthroid) tablet 50 mcg (50 mcg Oral $ Given 08/18/24617) lisinopril (Prinivil; Zestril) tablet 20 mg ( Oral Dose Held 08/23/24899) morphine IR (MSIR) tablet 30 mg ( Oral Held by Provider 08/16/242132) HYDROcodone-acetaminophen ([place]) 10-325 MG tablet 1 tablet (1 tablet Oral $ Given 08/18/24617) pantoprazole EC (Protonix) tablet 40 mg (40 mg Oral $ Given 08/18/24917) cyclobenzaprine (Flexeril) tablet 10 mg ( Oral Held by Provider 08/16/242132) traZODone (Desyrel) tablet 100 mg (100 mg Oral $ Given 08/17/242038) lactated ringers infusion ( Intravenous $ New Bag/Syringe 08/17/241758) lidocaine (Lidoderm) 5 % patch 1 patch (has no administration in time range) sodium phosphate 30 mmol in 260 mL bolus (has no administration in time range) sodium - potassium phosphates (K Phos Neutral) tablet 2 tablet (2 tablets Oral $ Given 08/18/24917) azithromycin (Zithromax) tablet 500 mg (500 mg Oral $ Given 08/18/24918) fentaNYL (PF) (Sublimaze) injection 50 mcg (50 mcg Intravenous $ Given 08/16/24 0542) fentaNYL (PF) (Sublimaze) injection 50 mcg (50 mcg Intravenous $ Given 08/16/24 0710) 0.9% NaCl IV bolus (0 mL Intravenous Stopped 08/16/24 1107) lactated ringers IV bolus (0 mL Intravenous Stopped 08/16/242042) polyethylene glycol 3350 (Miralax) packet 17 g (17 g Oral $ Given 08/16/24 2204) perflutren lipid microsphere (Definity) injection 1.5 mL (1.5 mL Intravenous $ Given 08/17/24 1437) Clinical Impression: 1. Shock (HCC) 2. Fall (on) (from) other stairs and steps, initial encounter 3. Acute midline low back pain without sciatica 4. Elevated CK 5. PRIYANKA (acute kidney injury) (HCC) 6. Non-traumatic rhabdomyolysis 7. Neck pain 8. Acute encephalopathy Disposition: VIOLET to Dr. Malik By signing my name below, I, Tracy Joshua, attest that this documentation has been prepared under the direction and in the presence of Dr. Henning. Signed: Brayan Grant. Date: 08/18/2024. I, Dr. Henning, personally performed the services described in this documentation. All medical record entries made by the scribe were at my direction and in my presence. I have reviewed the chart andagree that the record reflects my personal performance and is accurate and complete. CREAM MACHINE OPERATOR * Annabella Alexander RN - 08/16/2024 5:33 AM CST Pt log rolled to L lateral position while maintaining spinal precaution. C spine tenderness noted. No T, L spine tenderness noted. No crepitus or stepoffs noted. Rectal tone intact. No blood from meatus. Pt returned to supine position while maintaining spinal precautions. CREAM MACHINE OPERATOR * Waldo Guerrero RN - 08/16/2024 5:26 AM CST Bed: T01 Expected date: Expected time: Means of arrival: Comments: Lvl 2 transfer from [place] [id number] CREAM MACHINE OPERATOR documented in this encounter Plan of Treatment Upcoming Encounters Date Type Department Care Team (Late st Contact Info) Description 01/19/2025 11:00 AM CDT Office Visit [facility] - GI [address] [facility], [place] [phone] Raymond Miller MD [address] [place] [address] Pending Results Name Type Priority Associated Diagnoses Date /Time CULTURE BLOOD Microbiology Timed 4 8:15 PM 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 CULTURE BLOOD Microbiology Timed 4 8:33 PM 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 EKG 12-LEAD ECG STAT Elevated CK 08/16/2024 10:17 PM 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 Scheduled Orders Name Type Priority Associated Diagnoses Orde r Schedule CULTURE SPUTUM+GRAM STAIN Microbiology Routine ONCE for 1 Occur rences starting 08/16/2024 until 08/16/2024 Scheduled Referrals Name Type Priority Associated Diagnoses Order Schedule Ref to GI Gastroenterology - [facility] Outpatient Referral Routine Gastroesophageal reflux disease with esophagitis without hemorrhage Common bile duct dilatation 1 Occurrences starting 08/19/2024 until 08/19/2025 documented as of this encounter Procedures Procedure Name Priority Date/Time Associated Diagnosis Comments CBC W AUTO DIFFERENTIAL Routine 08/20/2024 5:49 AM 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 COMPREHENSIVE METABOLIC PANEL Routine 08/20/2024 5:49 AM 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 PHOSPHORUS BLOOD Routine 08/20/2024 5:49 AM 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 MAGNESIUM BLOOD Routine 08/20/2024 5:49 AM 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 ENDOSCOPIC ULTRASONOGRAPHY, GI Routine 08/19/2024 11:04 AM 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 CBC W AUTO DIFFERENTIAL Routine 08/19/2024 7:43 AM 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 COMPREHENSIVE METABOLIC PANEL Routine 08/19/2024 7:43 AM 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 PHOSPHORUS BLOOD Routine 08/19/2024 7:43 AM 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 MAGNESIUM BLOOD Routine 08/19/2024 7:43 AM 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 PT-INR [facility] Routine 08/18/2024 6:40 AM 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 CBC W AUTO DIFFERENTIAL Routine 08/18/2024 6:40 AM 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 COMPREHENSIVE METABOLIC PANEL Routine 08/18/2024 6:40 AM 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 PHOSPHORUS BLOOD Routine 08/18/2024 6:40 AM 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 MAGNESIUM BLOOD Routine 08/18/2024 6:40 AM 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 LACTIC ACID BLOOD Routine 08/18/2024 6:4 0 AM 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 ECHO COMPLETE W CONTRAST Routine 08/17/2024 2:37 PM 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 Shock (HCC) EKG 12-LEAD Routine 08/17/2024 12:32 PM 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 Elevated CK PRIYANKA (acute kidney injury) (HCC) CBC W/O DIFFERENTIAL STAT 08/17/2024 5:13 AM 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 BASIC METABOLIC PANEL (CALCIUM TOTAL) STAT 08/17/2024 5:13 AM 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 LACTIC ACID BLOOD STAT 08/17/2024 5:1 3 AM 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 PT-INR [facility] Routine 08/17/2024 4:07 AM 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 SYPHILIS ANTIBODY CASCADING REFLEX AM Draw 08/17/2024 4:07 AM 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 HEMOGLOBIN A1C Routine 08/17/2024 4:07 AM 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 CBC W AUTO DIFFERENTIAL Routine 08/17/2024 4:07 AM 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 COMPREHENSIVE METABOLIC PANEL Routine 08/17/2024 4:07 AM 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 PHOSPHORUS BLOOD Routine 08/17/2024 4:07 AM 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 MAGNESIUM BLOOD Routine 08/17/2024 4:07 AM 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 LACTIC ACID BLOOD Routine 08/17/2024 4:0 7 AM 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 CK BLOOD Routine 08/17/2024 4:07 AM 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 VITAMIN B12 AM Draw 08/17/2024 4:07 AM 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 TSH Routine 08/17/2024 4:07 AM 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 GLUCOSE - POINT OF CARE Routine 08/17/2024 4:05 AM 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 GLUCOSE - POINT OF CARE Routine 08/17/2024 12:29 AM 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 EKG 12-LEAD STAT 08/16/2024 10:17 PM 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 Elevated CK GLUCOSE - POINT OF CARE Routine 08/16/2024 10:14 PM 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 DRUG SCREEN EXPANDED TOXICOLOGY URINE PANEL Routine 08/16/2024 10:01 PM 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 CULTURE BLOOD Timed 08/16/2024 8:33 PM 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 CULTURE BLOOD Timed 08/16/2024 8:15 PM 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 CULTURE URINE Routine 08/16/2024 7:46 PM 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 CBC W AUTO DIFFERENTIAL STAT 08/16/2024 7:05 PM 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 COMPREHENSIVE METABOLIC PANEL STAT 08/16/2024 7:05 PM 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 PHOSPHORUS BLOOD STAT 08/16/2024 7:05 PM 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 MAGNESIUM BLOOD STAT 08/16/2024 7:05 PM 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 LACTIC ACID BLOOD STAT 08/16/2024 7:0 5 PM 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 BLOOD GASES ART + COOX PANEL Routine 08/16/2024 7:01 PM 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 LACTIC ACID BLOOD REFLEX TO REPEAT STAT 08/16/2024 3:18 PM 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 BASIC METABOLIC PANEL (CALCIUM TOTAL) STAT 08/16/2024 10:34 AM 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 CK BLOOD STAT 08/16/2024 10:34 AM 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 URINE MICROSCOPIC ONLY REFLEX TO CULTURE STAT 08/16/2024 9:23 AM 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 URINALYSIS REFLEX MICROSCOPIC REFLEX CULTURE STAT 08/16/2024 9:23 AM 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 UREA NITROGEN URINE RANDOM STAT 08/16/2024 9:23 AM 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 URINE DRUG SCREEN IMMUNOASSAY STAT 08/16/2024 9:23 AM 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 CREATININE URINE RANDOM STAT 08/16/2024 9:23 AM 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 LYTES (NA K) URINE RANDOM PANEL STAT 08/16/2024 9:23 AM 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 TRICYCLICS SCREEN BLOOD STAT 08/16/2024 8:52 AM 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 HEPATIC FUNCTION PANEL STAT 4 8:52 AM 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 SALICYLATE LEVEL BLOOD STAT 8:52 AM 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 ACETAMINOPHEN LEVEL STAT 08/16/2024 8 :52 AM 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 XR PELVIS 1 OR 2VW STAT 08/16/2024 7: 20 AM 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 Fall (on) (from) other stairs and steps, initial encounter CT CHEST ABDOMEN PELVIS W CONT STAT 08/16/2024 6:58 AM 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 Fall (on) (from) other stairs and steps, initial encounter CT ANGIO LOWER EXTREMITY RIGHT STAT 08/16/2024 6:58 AM 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 Fall (on) (from) other stairs and steps, initial encounter CT ANGIO LOWER EXTREMITY LEFT STAT 08/16/2024 6:58 AM 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 Fall (on) (from) other stairs and steps, initial encounter CT LUMBAR SPINE WO CONTRAST STAT 08/16/2024 6:58 AM 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 Fall (on) (from) other stairs and steps, initial encounter CT THORACIC SPINE WO CONTRAST STAT 08/16/2024 6:58 AM 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 Fall (on) (from) other stairs and steps, initial encounter CT CERVICAL SPINE WO CONTRAST STAT 08/16/2024 6:58 AM 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 Fall (on) (from) other stairs and steps, initial encounter CT HEAD WO CONTRAST STAT 08/16/2024 6 :58 AM 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 Fall (on) (from) other stairs and steps, initial encounter XR CHEST 1VW PORTABLE STAT 08/16/2024 6:11 AM 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 Fall (on) (from) other stairs and steps, initial encounter PTT [facility] STAT 08/16/2024 5:50 AM 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 PT-INR [facility] STAT 08/16/2024 5:50 AM 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 TYPE + SCREEN PANEL STAT 08/16/2024 5 :50 AM 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 CBC W AUTO DIFFERENTIAL STAT 08/16/2024 5:50 AM 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 BASIC METABOLIC PANEL (CALCIUM TOTAL) STAT 08/16/2024 5:50 AM 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 LIPASE BLOOD STAT 08/16/2024 5:50 AM 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 ALCOHOL ETHYL BLOOD STAT 08/16/2024 5 :50 AM 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 documented in this encounter Results * (ABNORMAL) CBC W AUTO DIFFERENTIAL (08/20/2024 5:49 AM 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) [facility] WBC 3.6(L) 4.0 - 10.7 x10E9/L 08/20/2024 [...] Lab Venipuncture / Unknown 08/20/2024 5:49 AM 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 08/20/2024 6:35 AM [facility] Can Woo MD LAB - HEMATOLOGY ORD ERABLES Performing Organization Address [facility] Co de Phone Number [address] [address] [phone] * (ABNORMAL) COMPREHENSIVE METABOLIC PANEL (08/20/2024 5:49 AM 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) BUN 13 7 - 26 mg/dL 08/20/2024 [...] 0.9(L) 1.1 - 2.3 08/20/2024 7:13 AM [facility] eGFR by CKD-EPI >90 >=90 mL/min/1.7 3 m2 08/20/2024 7:13 AM [facility] Blood BLOOD SPECIMEN / Unknown Lab Venipuncture / Unknown 08/20/2024 5:49 AM 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 08/20/2024 6:39 AM [facility] Can Woo MD LAB - CHEMISTRY BINDU BOO [facility] Organization Address City/State/ZIP Co de Phone Number [facility] [address] [place] [phone], [facility] [phone] * MAGNESIUM BLOOD (08/20/2024 5:49 AM [facility]) Magnesium 1.7 1.6 - 2.6 mg/dL 08/20/2024 7:13 AM [facility] Blood BLOOD SPECIMEN / Unknown Lab Venipuncture / Unknown 08/20/2024 5:49 AM 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 08/20/2024 6:39 AM 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 Can Woo MD LAB - CHEMISTRY BINDU BOO Performing Organization Address [facility]/ZIP Co de Phone Number [address] [address], [facility] [phone] * (ABNORMAL) PHOSPHORUS BLOOD (08/20/2024 5:49 AM 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) Phosphorus 2.6(L) 2.8 - 5.1 mg/dL 08/20/2024 7:13 AM 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 [facility] Blood BLOOD SPECIMEN / Unknown Lab Venipuncture / Unknown 08/20/2024 5:49 AM 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 08/20/2024 6:39 AM 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 Can Woo MD LAB - CHEMISTRY BINDU BOO Performing Organization Address [facility] Co de Phone Number [address] [address], [facility] [phone] * Endoscopic Ultrasonography, GI (08/19/2024 11:04 AM 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) Report Endoscopy POC Endoscopy Department Report _ Patient Name: Ray Dion ?Procedure Date: 08/19/2024 11:04 AM ?Date of [...] and ?oxygen saturations were monitored continuously. The ?[id number] was introduced through the mouth, and ?advanced [...] Procedure Code(s): ? --- Professional --- ? 29746, Esophagogastroduodenos copy, flexible, transoral; with endoscopic ? ultrasound examination limited to the esophagus, stomach or duodenum, ? and adjacent structures Diagnosis Code(s): ?--- Professional --- ?K80.20, Calculus of gallbladder without ?cholecystitis without obstruction ?K86.9, Disease of pancreas, unspecified ?K83.8, Other specified diseases of biliary tract ?R93.2, Abnormal findings on diagnostic imaging of ?liver and biliary tract CPT copyright 2021 [employer]. All rights reserved. The codes documented in this report are preliminary and upon controlled atmospheric furnace brazer review may be revised to meet current compliance requirements. Raymond Miller MD 08/19/2024 12:49:34 PM This report has been signed electronically. Note Initiated On: 08/19/2024 11:04 AM Number of Addenda: 0 ? [facility] ? [address] [place], [place] [id number] [place] [address] PROVATION 08/19/2024 11:0 4 AM 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 Narrative Procedure Note Kay Isidro MD - 08/19/2024 12:50 PM CST (No note.) Oscar Zendejas MD GI PROCEDURE ORDERAB [facility] [employer]OVATION * (ABNORMAL) CBC W AUTO DIFFERENTIAL (08/19/2024 7:43 AM 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) WBC 3.1(L) 4.0 - 10.7 x10E9/L 08/19/2024 8:34 AM [facility] RBC Count 3.37(L) 4.30 - 5.80 x10E12/L 08/19/2024 8:34 AM [facility] Hemoglobin 11.3(L) 13.3 - 17.5 g/dL 08/19/2024 8:34 AM [facility] Hematocrit 32.6(L) 38.7 - 51.1 % 08/19/2024 8:34 AM [facility] MCV 96.7 80.0 - 98.0 fL 08/19/2024 8:34 AM [facility] MCH 33.5 26.7 - 33.6 pg 08/19/2024 8:34 AM [facility] MCHC 34.7 31.7 - 36.3 g/dL 08/19/2024 8:34 AM [facility] RDW-CV 12.3 11.3 - 14.8 % 08/19/2024 8:34 AM [facility] Platelet Count 125(L) 150 - 420 x10E9/L 08/19/2024 8:34 AM [facility] MPV 10.4 7.8 - 11.4 fL 08/19/2024 8:34 AM [facility] Neutrophil % 63.7 41.0 - 74.0 % 08/19/2024 8:34 AM [facility] Lymphocyte % 22.9 17.0 - 47.0 % 08/19/2024 8:34 AM [facility] Monocyte % 9.9 3.0 - 11.0 % 08/19/2024 8:34 AM [facility] Eosinophil % 1.9 0.0 - 7.0 % 08/19/2024 8:34 AM [facility] Basophil % 0.6 0.0 - 1.6 % 08/19/2024 8:34 AM [facility] Immature Granulocytes % 1.0 0.0 - 1.0 % 08/19/2024 8:34 AM [facility] Neutrophil Absolute 2.00 1.60 - 7.50 x10E9/L 08/19/2024 8:34 AM [facility] Lymphocyte Absolute 0.72(L) 1.00 - 4.40 x10E9/L 08/19/2024 8:34 AM [facility] Monocyte Absolute 0.31 0.15 - 1.00 x10E9/L 08/19/2024 8:34 AM [facility] Eosinophil Absolute 0.06 0.00 - 0.60 x10E9/L 08/19/2024 8:34 AM [facility] Basophil Absolute 0.02 0.00 - 0.13 x10E9/L 08/19/2024 8:34 AM [facility] Blood BLOOD SPECIMEN / Unknown Lab Venipuncture / Unknown 08/19/2024 7:43 AM 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 08/19/2024 8:15 AM [facility] Can Woo MD LAB - HEMATOLOGY ORD ERABLES [facility] [address] [place] [address], [facility] [phone] * (ABNORMAL) COMPREHENSIVE METABOLIC PANEL (08/19/2024 7:43 AM [facility]) BUN 16 7 - 26 mg/dL 08/19/2024 8:46 AM [facility] Creatinine 0.83 0.71 - 1.16 mg/dL 08/19/2024 8:46 AM [facility] Sodium 142 136 - 145 mmol/L 08/19/2024 8:46 AM [facility] Potassium 3.3(L) 3.5 - 4.5 mmol/L 08/19/2024 8:46 AM [facility] Chloride 111(H) 98 - 107 mmol/L 08/19/2024 8:46 AM [facility] CO2 24 22 - 29 mmol/L 08/19/2024 8:46 AM [facility] Glucose 88 70 - 99 mg/dL 08/19/2024 8:46 AM [facility] Calcium 8.1(L) 8.4 - 10.2 mg/dL 08/19/2024 8:46 AM [facility] Protein Total 5.1(L) 6.0 - 8.3 g/dL 08/19/2024 8:46 AM [facility] Albumin 2.5(L) 3.4 - 5.0 g/dL 08/19/2024 8:46 AM [facility] Bilirubin Total 0.4 0.2 - 1.2 mg/dL 08/19/2024 8:46 AM [facility] Alkaline Phosphatase 45 40 - 150 U/L 08/19/2024 8:46 AM [facility] ALT 33 5 - 55 U/L 08/19/2024 8:46 AM [facility] AST 43(H) 5 - 34 U/L 08/19/2024 8:46 AM [facility] Anion Gap 7 6 - 16 08/19/2024 8:46 AM [facility] BUN/Creatinine Ratio 19 7 - 23 08/19/2024 8:46 AM [facility] Osmolality Calculated 295 275 - 295 mOsm/kg 08/19/2024 8:46 AM [facility] Albumin/Globulin Ratio 1.0(L) 1.1 - 2.3 08/19/2024 8:46 AM [facility] eGFR by CKD-EPI >90 >=90 mL/min/1.7 3 m2 08/19/2024 8:46 AM [facility] Blood BLOOD SPECIMEN / Unknown Lab Venipuncture / Unknown 08/19/2024 7:43 AM 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 08/19/2024 8:15 AM 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 Can Woo MD LAB - CHEMISTRY ORDNoelle BOO Performing Organization Address City/[facility] de Phone Number [facility] [address] [place] [phone], [facility] [phone] * (ABNORMAL) MAGNESIUM BLOOD (08/19/2024 7:43 AM 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) Magnesium 1.5(L) 1.6 - 2.6 mg/dL 08/19/2024 8:46 AM [facility] Blood BLOOD SPECIMEN / Unknown Lab Venipuncture / Unknown 08/19/2024 7:43 AM 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 08/19/2024 8:15 AM 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 Can Woo MD LAB - CHEMISTRY BINDU BOO [address] [address], [place] [phone] * (ABNORMAL) PHOSPHORUS BLOOD (08/19/2024 7:43 AM 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) [facility] Phosphorus 2.2(L) 2.8 - 5.1 mg/dL 08/19/2024 8:47 AM 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 [facility] Blood BLOOD SPECIMEN / Unknown Lab Venipuncture / Unknown 08/19/2024 7:43 AM 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 08/19/2024 8:15 AM 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 Can Woo MD LAB - CHEMISTRY BINDU BOO Performing Organization Address City/[facility]/ZIP Co de Phone Number [address] [address], [place] [phone] * LACTIC ACID BLOOD (08/18/2024 6:40 AM 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) [facility] Lactic Acid-Stat 1.1 <=2.0 mmol/L 08/18/2024 7:23 AM 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 [facility] Blood BLOOD SPECIMEN / Unknown Lab Venipuncture / Unknown 08/18/2024 6:40 AM 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 08/18/2024 6:53 AM 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 Can Woo MD LAB - CHEMISTRY BINDU BOO Performing Organization Address City/[facility]/ZIP Co de Phone Number [address] [address], [place] [phone] * (ABNORMAL) CBC W AUTO DIFFERENTIAL (08/18/2024 6:40 AM 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) [facility] WBC 3.8(L) 4.0 - 10.7 x10E9/L 08/18/2024 7:26 AM [facility] RBC Count 3.38(L) 4.30 - 5.80 x10E12/L 08/18/2024 7:26 AM [facility] Hemoglobin 11.5(L) 13.3 - 17.5 g/dL 08/18/2024 7:26 AM [facility] Hematocrit 33.2(L) 38.7 - 51.1 % 08/18/2024 7:26 AM [facility] MCV 98.2(H) 80.0 - 98.0 fL 08/18/2024 7:26 AM [facility] MCH 34.0(H) 26.7 - 33.6 pg 08/18/2024 7:26 AM [facility] MCHC 34.6 31.7 - 36.3 g/dL 08/18/2024 7:26 AM [facility] RDW-CV 12.4 11.3 - 14.8 % 08/18/2024 7:26 AM [facility] Platelet Count 108(L) 150 - 420 x10E9/L 08/18/2024 7:26 AM [facility] MPV 10.7 7.8 - 11.4 fL 08/18/2024 7:26 AM [facility] Neutrophil % 72.8 41.0 - 74.0 % 08/18/2024 7:26 AM [facility] Lymphocyte % 16.8(L) 17.0 - 47.0 % 08/18/2024 7:26 AM [facility] Monocyte % 7.5 3.0 - 11.0 % 08/18/2024 7:26 AM [facility] Eosinophil % 1.6 0.0 - 7.0 % 08/18/2024 7:26 AM [facility] Basophil % 0.5 0.0 - 1.6 % 08/18/2024 7:26 AM [facility] Immature Granulocytes % 0.8 0.0 - 1.0 % 08/18/2024 7:26 AM [facility] Neutrophil Absolute 2.73 1.60 - 7.50 x10E9/L 08/18/2024 7:26 AM [facility] Lymphocyte Absolute 0.63(L) 1.00 - 4.40 x10E9/L 08/18/2024 7:26 AM [facility] Monocyte Absolute 0.28 0.15 - 1.00 x10E9/L 08/18/2024 7:26 AM [facility] Eosinophil Absolute 0.06 0.00 - 0.60 x10E9/L 08/18/2024 7:26 AM [facility] Basophil Absolute 0.02 0.00 - 0.13 x10E9/L 08/18/2024 7:26 AM [facility] Blood BLOOD SPECIMEN / Unknown Lab Venipuncture / Unknown 08/18/2024 6:40 AM 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 08/18/2024 7:13 AM 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 Can Woo MD LAB - HEMATOLOGY ORD ERABLES [facility] [address] [place] [address], [facility] [phone] * (ABNORMAL) COMPREHENSIVE METABOLIC PANEL (08/18/2024 6:40 AM [facility]) BUN 24 7 - 26 mg/dL 08/18/2024 7:43 AM [facility] Creatinine 0.82 0.71 - 1.16 mg/dL 08/18/2024 7:43 AM [facility] Sodium 140 136 - 145 mmol/L 08/18/2024 7:43 AM [facility] Potassium 4.0 3.5 - 4.5 mmol/L 08/18/2024 7:43 AM [facility] Chloride 111(H) 98 - 107 mmol/L 08/18/2024 7:43 AM [facility] CO2 23 22 - 29 mmol/L 08/18/2024 7:43 AM [facility] Glucose 97 70 - 99 mg/dL 08/18/2024 7:43 AM [facility] Calcium 7.9(L) 8.4 - 10.2 mg/dL 08/18/2024 7:43 AM [facility] Protein Total 5.0(L) 6.0 - 8.3 g/dL 08/18/2024 7:43 AM [facility] Albumin 2.4(L) 3.4 - 5.0 g/dL 08/18/2024 7:43 AM [facility] Bilirubin Total 0.4 0.2 - 1.2 mg/dL 08/18/2024 7:43 AM [facility] Alkaline Phosphatase 49 40 - 150 U/L 08/18/2024 7:43 AM [facility] ALT 39 5 - 55 U/L 08/18/2024 7:43 AM [facility] AST 53(H) 5 - 34 U/L 08/18/2024 7:43 AM [facility] Anion Gap 6 6 - 16 08/18/2024 7:43 AM [facility] BUN/Creatinine Ratio 29(H) 7 - 23 08/18/2024 7:43 AM [facility] Osmolality Calculated 294 275 - 295 mOsm/kg 08/18/2024 7:43 AM [facility] Albumin/Globulin Ratio 0.9(L) 1.1 - 2.3 08/18/2024 7:43 AM [facility] eGFR by CKD-EPI >90 >=90 mL/min/1.7 3 m2 08/18/2024 7:43 AM [facility] Blood BLOOD SPECIMEN / Unknown Lab Venipuncture / Unknown 08/18/2024 6:40 AM 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 08/18/2024 7:13 AM 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 Can Woo MD LAB - CHEMISTRY [place] [facility] [address] [address], [facility] [phone] * MAGNESIUM BLOOD (08/18/2024 6:40 AM 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) Magnesium 1.7 1.6 - 2.6 mg/dL 08/18/2024 7:40 AM [facility] Blood BLOOD SPECIMEN / Unknown Lab Venipuncture / Unknown 08/18/2024 6:40 AM 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 08/18/2024 7:13 AM 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 Can Woo MD LAB - CHEMISTRY [place] [address] [address], [facility] [phone] * (ABNORMAL) PHOSPHORUS BLOOD (08/18/2024 6:40 AM 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) Phosphorus 1.1(L) 2.8 - 5.1 mg/dL 08/18/2024 7:40 AM 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 [facility] Blood BLOOD SPECIMEN / Unknown Lab Venipuncture / Unknown 08/18/2024 6:40 AM 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 08/18/2024 7:13 AM 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 Cna Woo MD LAB - CHEMISTRY ORDE RABLES [facility] [address] [place] [address], [facility] [phone] * PT-INR [facility] (08/18/2024 6:40 AM 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) [facility] PT 14.2 12.1 - 14.8 Seconds 08/18/2024 7:34 AM [facility] INR 1.1 See Comment 08/18/2024 7:34 AM [facility] Comment:The suggested therap eutic range for standard coumadin (warfarin) therapy is an INR of 2.0-3.0. For high-risk patients (Mechanical Mitral Valve Prosthesis, etc.), the suggested prophylactic therapeutic range is an INR of 2.5-3.5. Blood BLOOD SPECIMEN / Unknown Lab Venipuncture / Unknown 08/18/2024 6:40 AM 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 08/18/2024 7:13 AM 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 Can Woo MD LAB - COAGULATION OR DERABLES [facility] [address] [place] [address], [facility] [phone] * ECHO COMPLETE W CONTRAST (08/17/2024 2:37 PM 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) Pathologist [facility] LVOT diam 2.23 [...] [facility] CV FU JI PACS LVOT pk casandra 127.652 cm/s S[facility] CV F UJI PACS LVOT VTI 22.255 cm [facility] CV [facility] I PACS RV-farrell basal diam 3.734 cm [facility] CV FUJI PACS RVOT diam Doppler 2.718 [facility] pk casandra 66.78 cm/s [facility] CV F UJI PACS RVOT VTI 14.325 cm [facility] CV [facility] I PACS LA size 3.277 cm [facility] CV [facility] I PACS LA vol BP 39.403 ml [facility] CV [facility] I PACS RA area 11.564 cm? ? ? [facility] mn grad 3.382 mmHg SSM CV FU PACS AV pk casandra 135.812 cm/s [facility] I PACS AV VTI 24.243 cm [facility] I PACS MV A pk casandra 79.206 cm/s [facility] CV F UJI PACS MV E pk casandra 78.034 cm/s [facility] CV F UJI PACS MV E' lateral casandra 9.049 cm/s [facility] mn grad 1.355 mmHg [facility] CV FU PACS MV VTI 25.365 cm [facility] I PACS PV pk casandra 76.07 cm/s [facility] I PACS PV VTI 13.837 cm [facility] I PACS TAPSE 2.225 cm [facility] I PACS TR pk casandra 260.308 cm/s [facility] I PACS Ascending aorta 3.443 cm [facility] LA vol index 0.022 l/m? ? ? [facility] Myocardial strain charge 1 unitless [facility] Anatomical Region Laterality Modality Ultrasound 08/17/2024 1:34 PM 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 Narrative 08/18/2024 8:50 AM 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 Summary ??* The left ventricle is [...] significant valve disease. Patient Info Name: ? Rya Ashley Age: ? 69 years : ? 1955 Gender: ? Male Accession #: ? [id number] Ht: ? 65 in Wt: ? 155 lb BSA: ? 1.81 m2 HR: ? 69 bpm BP: ? 127 / ? 70 mmHg Heart Rhythm: ? Sinus Rhythm Exam Date: ? 08/17/2024 1:34 PM Exam Room: ? 411 Patient Status: ? O/P Study Site: ? [facility] Primary Location: ? [facility] EStudy Info Technical Quality: ? [...] Can Woo Attending Physician: ? Can Woo Granulator Machine Operator: ? Kayley Peoples RDCS Left Ventricle ??The [...] 3.32 cm2/m2 ? PV Area (Cont Eq Casandra) ?5.1 cm2 ? PV Area Index (Cont Eq Casandra) ? 2.81 cm2/m2 Mitral Valve Name ? [...] 3.59 cm2 ?>=2.00 AV Area (Cont Eq Casandra) ? 3.67 cm2 ? AV DI (VTI) ? 0.92 ? AV DI (Casandra) ? 0.94 ? AV Regurgitation 2D LVOT [...] Exam Date: 08/17/2024 1:34 PM Exam Room: [facility] Patient Status: O/P Study Site: [facility] Primary Location: [facility] EStud Info Technical Quality: Fair Exam Type: ECHO [...] Provider: Can Woo Attending Physician: Can Woo Granulator Machine Operator: Kayley Peoples RDCS Left Ventricle The left [...] VTI) 3.32 cm2/m2 PV Area (Cont Eq Casandra) 5.1 cm2 PV Area Index (Cont Eq Casandra) 2.81 cm2/m2 Mitral Valve Name Value Normal [...] 3.59 cm2 >=2.00 AV Area (Cont Eq Casandra) 3.67 cm2 AV DI (VTI) 0.92 AV DI (Casandra) 0.94 AV Regurgitation 2D LVOT Area 3.91 [...] CUPID * EKG 12-LEAD (08/17/2024 12:32 PM 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) Ventricular Rate 73 BPM [facility] Atrial Rate 73 BPM [facility] P-R Interval 176 ms [facility] QRS Duration ms 94 ms [facility] Q-T Interval ms 392 ms [facility] QTC Calculation (Bezet) 431 ms [facility] Calculated P Gilman 46 degrees [facility] Calculated R Gilman 47 degrees [facility] Calculated T Gilman 29 degrees [facility] Interpretation EKG NORMAL SINUS RHYTHM NORMAL ECG Confirmed by HANANE ROSAS, KEN ([id number]) on 08/17/2024 5:44:27 PM [facility] 08/17/2024 12:3 2 PM 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 08/17/2024 5:44 PM 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 Can Woo MD ECG ORDERABLES [facility] MUSE * (ABNORMAL) BASIC METABOLIC PANEL (CALCIUM TOTAL) (08/17/2024 5:13 AM 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) BUN 36(H) 7 - 26 mg/dL 08/17/2024 [...] Line Draw / Unknown 08/17/2024 5:13 AM 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 08/17/2024 5:21 AM [facility] Can Woo MD LAB - CHEMISTRY OSMANE RAJEEV [facility] Organization Address City/State/ZIP Co de Phone Number [facility] [address] [place] [address], [facility] [phone] * (ABNORMAL) CBC W/O DIFFERENTIAL (08/17/2024 5:13 AM [facility]) Pathologist [facility] WBC 5.8 4.0 [...] Line Draw / Unknown 08/17/2024 5:13 AM 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 08/17/2024 5:22 AM 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 Can Woo MD LAB - HEMATOLOGY ORD ERABLES Performing Organization Address City/State/[facility] Co de Phone Number [address] [address] [phone] * LACTIC ACID BLOOD (08/17/2024 5:13 AM 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) Lactic Acid-Stat 1.2 <=2.0 mmol/L 08/17/2024 5:50 AM [facility] Blood BLOOD SPECIMEN / Unknown Line Draw / Unknown 08/17/2024 5:13 AM 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 08/17/2024 5:22 AM 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 Can Woo MD LAB - CHEMISTRY BINDU BOO Performing Organization Address City/[facility]/ZIP Co de Phone Number [address] [address], [facility] [phone] * (ABNORMAL) TSH (08/17/2024 4:07 AM 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) [facility] TSH 0.112(L) 0.350 - 4.940 uIU/mL 08/17/2024 5:15 AM 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 [facility] Blood BLOOD SPECIMEN / Unknown Line Draw / Unknown 08/17/2024 4:07 AM 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 08/17/2024 4:23 AM 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 Can Woo MD LAB - CHEMISTRY BINDU BOO Performing Organization Address [facility]/ZIP Co de Phone Number [address] [address], [facility] [phone] * (ABNORMAL) LACTIC ACID BLOOD (08/17/2024 4:07 AM 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) [facility] Lactic Acid-Stat 12.3(HH) <=2.0 mmol/L 08/17/2024 4:52 AM 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 [facility] Blood BLOOD SPECIMEN / Unknown Line Draw / Unknown 08/17/2024 4:07 AM 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 08/17/2024 4:16 AM 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 Can Woo MD LAB - CHEMISTRY BINDU BOO Performing Organization Address City/[facility]/ZIP Co de Phone Number [address] [address], [facility] [phone] * (ABNORMAL) CBC W AUTO DIFFERENTIAL (08/17/2024 4:07 AM 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) [facility] WBC 4.1 4.0 - 10.7 x10E9/L 08/17/2024 5:06 AM [facility] RBC Count 2.10(L) 4.30 - 5.80 x10E12/L 08/17/2024 5:06 AM [facility] Hemoglobin 7.1(L) 13.3 - 17.5 g/dL 08/17/2024 5:06 AM [facility] Hematocrit 21.6(L) 38.7 - 51.1 % 08/17/2024 5:06 AM [facility] MCV 102.9(H) 80.0 - 98.0 fL 08/17/2024 5:06 AM [facility] MCH 33.8(H) 26.7 - 33.6 pg 08/17/2024 5:06 AM [facility] MCHC 32.9 31.7 - 36.3 g/dL 08/17/2024 5:06 AM [facility] RDW-CV 12.6 11.3 - 14.8 % 08/17/2024 5:06 AM [facility] Platelet Count 74(L) 150 - 420 x10E9/L 08/17/2024 5:06 AM [facility] MPV 10.6 7.8 - 11.4 fL 08/17/2024 5:06 AM [facility] Neutrophil % 77.6(H) 41.0 - 74.0 % 08/17/2024 5:06 AM [facility] Lymphocyte % 10.5(L) 17.0 - 47.0 % 08/17/2024 5:06 AM [facility] Monocyte % 10.5 3.0 - 11.0 % 08/17/2024 5:06 AM [facility] Eosinophil % 0.7 0.0 - 7.0 % 08/17/2024 5:06 AM [facility] Basophil % 0.2 0.0 - 1.6 % 08/17/2024 5:06 AM [facility] Immature Granulocytes % 0.5 0.0 - 1.0 % 08/17/2024 5:06 AM [facility] Neutrophil Absolute 3.18 1.60 - 7.50 x10E9/L 08/17/2024 5:06 AM [facility] Lymphocyte Absolute 0.43(L) 1.00 - 4.40 x10E9/L 08/17/2024 5:06 AM [facility] Monocyte Absolute 0.43 0.15 - 1.00 x10E9/L 08/17/2024 5:06 AM [facility] Eosinophil Absolute 0.03 0.00 - 0.60 x10E9/L 08/17/2024 5:06 AM [facility] Basophil Absolute 0.01 0.00 - 0.13 x10E9/L 08/17/2024 5:06 AM [facility] Blood BLOOD SPECIMEN / Unknown Line Draw / Unknown 08/17/2024 4:07 AM 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 08/17/2024 4:22 AM [facility] Can Woo MD LAB - HEMATOLOGY ORD ERABLES [facility] [address] [place] [address], [facility] [phone] * (ABNORMAL) COMPREHENSIVE METABOLIC PANEL (08/17/2024 4:07 AM [facility]) BUN 27(H) 7 - 26 mg/dL 08/17/2024 4:56 AM [facility] Creatinine 1.14 0.71 - 1.16 mg/dL 08/17/2024 4:56 AM [facility] Sodium 136 136 - 145 mmol/L 08/17/2024 4:56 AM [facility] Potassium 4.1 3.5 - 4.5 mmol/L 08/17/2024 4:56 AM [facility] Chloride 111(H) 98 - 107 mmol/L 08/17/2024 4:56 AM [facility] CO2 18(L) 22 - 29 mmol/L 08/17/2024 4:56 AM [facility] Glucose 81 70 - 99 mg/dL 08/17/2024 4:56 AM [facility] Calcium 7.1(L) 8.4 - 10.2 mg/dL 08/17/2024 4:56 AM [facility] Protein Total 3.6(L) 6.0 - 8.3 g/dL 08/17/2024 4:56 AM [facility] Albumin 1.7(L) 3.4 - 5.0 g/dL 08/17/2024 4:56 AM [facility] Bilirubin Total 0.2 0.2 - 1.2 mg/dL 08/17/2024 4:56 AM [facility] Alkaline Phosphatase 52 40 - 150 U/L 08/17/2024 4:56 AM [facility] ALT 27 5 - 55 U/L 08/17/2024 4:56 AM [facility] AST 43(H) 5 - 34 U/L 08/17/2024 4:56 AM [facility] Anion Gap 7 6 - 16 08/17/2024 4:56 AM [facility] BUN/Creatinine Ratio 24(H) 7 - 23 08/17/2024 4:56 AM [facility] Osmolality Calculated 286 275 - 295 mOsm/kg 08/17/2024 4:56 AM [facility] Albumin/Globulin Ratio 0.9(L) 1.1 - 2.3 08/17/2024 4:56 AM [facility] eGFR by CKD-EPI 70(L) >=90 mL/min/1.7 3 m2 08/17/2024 4:56 AM [facility] Blood BLOOD SPECIMEN / Unknown Line Draw / Unknown 08/17/2024 4:07 AM 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 08/17/2024 4:23 AM 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 Can Woo MD LAB - CHEMISTRY ORDNoelle BOO [address] [address], [facility] [phone] * (ABNORMAL) MAGNESIUM BLOOD (08/17/2024 4:07 AM 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) Magnesium 1.3(L) 1.6 - 2.6 mg/dL 08/17/2024 4:56 AM [facility] Blood BLOOD SPECIMEN / Unknown Line Draw / Unknown 08/17/2024 4:07 AM 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 08/17/2024 4:23 AM 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 Can Woo MD LAB - CHEMISTRY BINDU BOO [address] [address], [place] [phone] * (ABNORMAL) PHOSPHORUS BLOOD (08/17/2024 4:07 AM 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) Phosphorus 1.8(L) 2.8 - 5.1 mg/dL 08/17/2024 4:57 AM [facility] Blood BLOOD SPECIMEN / Unknown Line Draw / Unknown 08/17/2024 4:07 AM 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 08/17/2024 4:23 AM 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 Can Woo MD LAB - CHEMISTRY ORDE RABLES [facility] [address] [place] [address], [facility] [phone] * (ABNORMAL) PT-INR [facility] (08/17/2024 4:07 AM 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) [facility] PT 21.7(H) 12.1 - 14.8 Seconds 08/17/2024 4:43 AM [facility] INR 2.0 See Comment 08/17/2024 4:43 AM [facility] Comment:The suggested therap eutic range for standard coumadin (warfarin) therapy is an INR of 2.0-3.0. For high-risk patients (Mechanical Mitral Valve Prosthesis, etc.), the suggested prophylactic therapeutic range is an INR of 2.5-3.5. Blood BLOOD SPECIMEN / Unknown Venipuncture / Unknown 08/17/2024 4:07 AM 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 08/17/2024 4:16 AM 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 Can Woo MD LAB - COAGULATION OR DERABLES Performing Organization Address [facility]/State/ZIP Co de Phone Number [facility] [address] [place] [address], [place] [phone] * SYPHILIS ANTIBODY CASCADING REFLEX (08/17/2024 4:07 AM 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) Pathologist [facility] Treponema pallidum Antibody Non-react bassem Non-react bassem 08/17/2024 5:09 AM [facility] Comment: No Laboratory evidence of syphilis infection. ?? Note: ??Circulating antibodies may be low or undetectable in early infection. ??If recent exposure is suspected, re-draw sample in 2-4 weeks and repeat testing. Blood BLOOD SPECIMEN / Unknown Line Draw / Unknown 08/17/2024 4:07 AM 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 08/17/2024 4:13 AM 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 Can Woo MD LAB - SEROLOGY ORDER CHRISTIANA [address] [address], [facility] [phone] * (ABNORMAL) VITAMIN B12 (08/17/2024 4:07 AM 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) Vitamin B12 182(L) 213 - 816 pg/mL 08/17/2024 5:15 AM [facility] Blood BLOOD SPECIMEN / Unknown Line Draw / Unknown 08/17/2024 4:07 AM 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 08/17/2024 4:23 AM 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 Can Woo MD LAB - CHEMISTRY ORDE RABLES Performing Organization Address City/[facility]/ZIP Co de Phone Number [address] [address], [place] [phone] * HEMOGLOBIN A1C (08/17/2024 4:07 AM 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) Hemoglobin A1c 5.1 <=5.6 % 08/17/2024 [...] to evaluate metabolic control in patients. Reference: [place] [employer], Standards of Care in Diabetes -2020 In patients 70 years and older consider HbA1c target range of 7.0-7.5% (Reference: Blu Pineda et al. JAMDA. 2012) The Sebia assay for the measurement of HbA1c is a National Glycohemoglobin Standardization Program (NGSP) certified method. Blood BLOOD SPECIMEN / Unknown Line Draw / Unknown 08/17/2024 4:07 AM 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 08/17/2024 4:20 AM 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 Can Woo MD LAB - CHEMISTRY BINDU BOO [address] [address], [place] [phone] * (ABNORMAL) CK BLOOD (08/17/2024 4:07 AM 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) CK Total 1,786(H) 30 - 200 U/L 08/17/2024 4:56 AM 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 [facility] Blood BLOOD SPECIMEN / Unknown Line Draw / Unknown 08/17/2024 4:07 AM 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 08/17/2024 4:23 AM 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 Can Woo MD LAB - CHEMISTRY BINDU BOO Performing Organization Address City/[facility]/ZIP Co de Phone Number [address] [address], [place] [phone] * GLUCOSE - POINT OF CARE (08/17/2024 4:05 AM 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) Glucose WB/POC 85 70 - 99 mg/dL 08/17/2024 4:10 AM 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 [facility] Specimen Type Venous 08/17/2024 4:10 AM 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 [facility] Blood BLOOD SPECIMEN / Unknown 08/17/2024 4:05 AM 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 08/17/2024 4:10 AM 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 Can Woo MD LAB - POINT OF CARE ORDERABLES [address] [address], [place] [phone] * (ABNORMAL) GLUCOSE - POINT OF CARE (08/17/2024 12:29 AM 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) Glucose WB/POC 115(H) 70 - 99 mg/dL 08/17/2024 4:10 AM 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 [facility] Specimen Type Cap Fingerstick 2023 4:10 AM 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 [facility] Blood BLOOD SPECIMEN / Unknown 08/17/2024 12:29 AM 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 08/17/2024 4:10 AM 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 Can Woo MD LAB - POINT OF CARE ORDERABLES [facility] [address] [place] [address], [place] [phone] * (ABNORMAL) GLUCOSE - POINT OF CARE (08/16/2024 10:14 PM 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) Pathologist [facility] Glucose WB/POC 141(H) 70 - 99 mg/dL 08/16/2024 10:15 PM 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 [facility] Specimen Type Cap Fingerstick 2023 10:15 PM 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 [facility] Blood BLOOD SPECIMEN / Unknown 08/16/2024 10:14 PM 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 08/16/2024 10:15 PM 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 Can Woo MD LAB - POINT OF CARE ORDERABLES [facility] [address] [place] [address], [place] [phone] * (ABNORMAL) DRUG SCREEN EXPANDED TOXICOLOGY URINE PANEL (08/16/2024 10:01 PM ICE CREAM MACHINE OPERATOR) Pathologist [facility] Expanded Drug Screen, Urine Positive(A) Negative 08/17/2024 12:20 PM ICE CREAM MACHINE OPERATOR [facility] Findings Acetaminophen Caffeine Codeine Codeine glucuronide Cotinine Cyclobenzaprine Diphenhydramine Duloxetine Gabapentin Hydromorphone glucuronide Lisinopril meta-Chloropheny lpiperazine(mCPP ) Morphine Nicotine Trazodone 08/17/2024 12:20 PM ICE CREAM MACHINE OPERATOR [facility] Urine URINE / Unknown Collection / Unknown 08/16/2024 10:01 PM ICE CREAM MACHINE OPERATOR 08/16/2024 10:20 PM ICE CREAM MACHINE OPERATOR Narrative [facility] - 08/17/2024 12:20 PM ICE CREAM MACHINE OPERATOR Testing performed by Liquid Chromatography-Quadrupole Time Flight Mass Spectrometry. While mass spectrometry is highly sensitive and specific, false-positive and false-negative findings may occur in rare circumstances. If consultation is needed, please contact the Clinical Pathology Resident drywall application supervisor at [phone] (M-F, 8 am ? 5 pm) or [phone] after hours. This test does not include THC or barbiturates. This testing was developed by the [facility] in keeping with CLIA requirements. The test has not been cleared or approved by the U.S. Food and Drug Administration. Can Woo MD LAB - URINE CHEMISTR Y ORDERABLES Performing Organization Address City/[facility]/ZIP Co de Phone Number [facility] [address] [place] [address], [facility] [phone] * CULTURE URINE (08/16/2024 7:46 PM ICE CREAM MACHINE OPERATOR) Culture Urine No growth (<100 CFU/mL) ARLEN 08/18/2024 12:06 AM ICE CREAM MACHINE OPERATOR [facility] Urine URINE SPECIMEN OBTAINED BY CLEAN CATCH PROCEDURE / Unknown Collection / Unknown 08/16/2024 7:46 PM ICE CREAM MACHINE OPERATOR 08/16/2024 7:53 PM ICE CREAM MACHINE OPERATOR Can Woo MD LAB - MICROBIOLOGY O RDERABLES Performing Organization Address City/[facility]/ZIP Co de Phone Number [facility] [address] [place] [address], [facility] [phone] * PHOSPHORUS BLOOD (08/16/2024 7:05 PM ICE CREAM MACHINE OPERATOR) Phosphorus 4.1 2.8 - 5.1 mg/dL 08/16/2024 7:36 PM ICE CREAM MACHINE OPERATOR [facility] Blood BLOOD SPECIMEN / Unknown Venipuncture / Unknown 08/16/2024 7:05 PM ICE CREAM MACHINE OPERATOR 08/16/2024 7:11 PM ICE CREAM MACHINE OPERATOR Can Woo MD LAB - CHEMISTRY BINDU BOO Performing Organization Address City/[facility]/ZIP Co de Phone Number [address] [address], [place] [phone] * MAGNESIUM BLOOD (08/16/2024 7:05 PM ICE CREAM MACHINE OPERATOR) [facility] Magnesium 2.2 1.6 - 2.6 mg/dL 08/16/2024 7:36 PM [facility] Blood BLOOD SPECIMEN / Unknown Venipuncture / Unknown 08/16/2024 7:05 PM ICE CREAM MACHINE OPERATOR 08/16/2024 7:11 PM ICE CREAM MACHINE OPERATOR Can Woo MD LAB - CHEMISTRY BINDU BOO [address] [address], [place] [phone] * (ABNORMAL) LACTIC ACID BLOOD (08/16/2024 7:05 PM ICE CREAM MACHINE OPERATOR) [facility] Lactic Acid-Stat 2.6(H) <=2.0 mmol/L 08/16/2024 7:36 PM [facility] Blood BLOOD SPECIMEN / Unknown Venipuncture / Unknown 08/16/2024 7:05 PM ICE CREAM MACHINE OPERATOR 08/16/2024 7:11 PM ICE CREAM MACHINE OPERATOR Can Woo MD LAB - CHEMISTRY BINDU BOO [address] [address], [place] [phone] * (ABNORMAL) COMPREHENSIVE METABOLIC PANEL (08/16/2024 7:05 PM ICE CREAM MACHINE OPERATOR) [facility] BUN 46(H) 7 - 26 mg/dL 08/16/2024 8:01 PM [facility] Creatinine 2.85(H) 0.71 - 1.16 mg/dL 08/16/2024 8:01 PM [facility] Sodium 141 136 - 145 mmol/L 08/16/2024 8:01 PM [facility] Potassium 4.1 3.5 - 4.5 mmol/L 08/16/2024 8:01 PM [facility] Chloride 110(H) 98 - 107 mmol/L 08/16/2024 8:01 PM [facility] CO2 21(L) 22 - 29 mmol/L 08/16/2024 8:01 PM [facility] Glucose 108(H) 70 - 99 mg/dL 08/16/2024 8:01 PM [facility] Calcium 7.9(L) 8.4 - 10.2 mg/dL 08/16/2024 8:01 PM [facility] Protein Total 5.7(L) 6.0 - 8.3 g/dL 08/16/2024 8:01 PM [facility] Albumin 2.7(L) 3.4 - 5.0 g/dL 08/16/2024 8:01 PM [facility] Bilirubin Total 0.5 0.2 - 1.2 mg/dL 08/16/2024 8:01 PM [facility] Alkaline Phosphatase 63 40 - 150 U/L 08/16/2024 8:01 PM [facility] ALT 48 5 - 55 U/L 08/16/2024 8:01 PM [facility] AST 87(H) 5 - 34 U/L 08/16/2024 8:01 PM [facility] Anion Gap 10 6 - 16 08/16/2024 8:01 PM [facility] BUN/Creatinine Ratio 16 7 - 23 08/16/2024 8:01 PM [facility] Osmolality Calculated 304(H) 275 - 295 mOsm/kg 08/16/2024 8:01 PM [facility] Albumin/Globulin Ratio 0.9(L) 1.1 - 2.3 08/16/2024 8:01 PM [facility] eGFR by CKD-EPI 23(L) >=90 mL/min/1.7 3 m2 08/16/2024 8:01 PM [facility] Blood BLOOD SPECIMEN / Unknown Venipuncture / Unknown 08/16/2024 7:05 PM ICE CREAM MACHINE OPERATOR 08/16/2024 7:11 PM [facility] Can Woo MD LAB - CHEMISTRY BINDU BOO [facility] Organization Address City/State/ZIP Co de Phone Number [facility] [address] [place] [address], [facility] [phone] * (ABNORMAL) CBC W AUTO DIFFERENTIAL (08/16/2024 7:05 PM [facility]) WBC 9.3 4.0 - 10.7 x10E9/L 08/16/2024 7:35 PM [facility] RBC Count 4.05(L) 4.30 - 5.80 x10E12/L 08/16/2024 7:35 PM [facility] Hemoglobin 13.7 13.3 - 17.5 g/dL 08/16/2024 7:35 PM [facility] Hematocrit 40.1 38.7 - 51.1 % 08/16/2024 7:35 PM [facility] MCV 99.0(H) 80.0 - 98.0 fL 08/16/2024 7:35 PM [facility] MCH 33.8(H) 26.7 - 33.6 pg 08/16/2024 7:35 PM [facility] MCHC 34.2 31.7 - 36.3 g/dL 08/16/2024 7:35 PM [facility] RDW-CV 12.6 11.3 - 14.8 % 08/16/2024 7:35 PM [facility] Platelet Count 144(L) 150 - 420 x10E9/L 08/16/2024 7:35 PM [facility] MPV 10.5 7.8 - 11.4 fL 08/16/2024 7:35 PM [facility] Neutrophil % 81.7(H) 41.0 - 74.0 % 08/16/2024 7:35 PM [facility] Lymphocyte % 8.1(L) 17.0 - 47.0 % 08/16/2024 7:35 PM [facility] Monocyte % 9.4 3.0 - 11.0 % 08/16/2024 7:35 PM [facility] Eosinophil % 0.1 0.0 - 7.0 % 08/16/2024 7:35 PM [facility] Basophil % 0.2 0.0 - 1.6 % 08/16/2024 7:35 PM [facility] Immature Granulocytes % 0.5 0.0 - 1.0 % 08/16/2024 7:35 PM [facility] Neutrophil Absolute 7.56(H) 1.60 - 7.50 x10E9/L 08/16/2024 7:35 PM [facility] Lymphocyte Absolute 0.75(L) 1.00 - 4.40 x10E9/L 08/16/2024 7:35 PM [facility] Monocyte Absolute 0.87 0.15 - 1.00 x10E9/L 08/16/2024 7:35 PM [facility] Eosinophil Absolute 0.01 0.00 - 0.60 x10E9/L 08/16/2024 7:35 PM [facility] Basophil Absolute 0.02 0.00 - 0.13 x10E9/L 08/16/2024 7:35 PM [facility] Blood BLOOD SPECIMEN / Unknown Venipuncture / Unknown 08/16/2024 7:05 PM [employer] MACHINE OPERATOR 08/16/2024 7:19 PM [facility] Can Woo MD LAB - HEMATOLOGY ORD ERABLES [facility] [address] [place] [address], [facility] [phone] * (ABNORMAL) BLOOD GASES ART + COOX PANEL (08/16/2024 7:01 PM [employer] MACHINE OPERATOR) pH Arterial 7.29(L) 7.35 - 7.45 [...] Arterial Puncture / Unknown 08/16/2024 7:01 PM [employer] MACHINE OPERATOR 08/16/2024 7:09 PM [employer]AM MACHINE OPERATOR Narrative [facility] - 08/16/2024 7:11 PM [employer] MACHINE OPERATOR Carboxyhemoglobin Normal Concentration: Non-smokers: 0-2%; Smokers: 0-9%; Toxic: >20% Can Woo MD LAB - BLOOD GASES OR DERABLES Performing Organization Address City/[facility]/ZIP Co de Phone Number [address] [address], [place] [phone] * LACTIC ACID BLOOD REFLEX TO REPEAT (08/16/2024 3:18 PM ICE CREAM MACHINE OPERATOR) Lactic Acid-Stat 1.7 <=2.0 mmol/L 08/16/2024 3:51 PM [facility] Blood BLOOD SPECIMEN / Unknown Venipuncture / Unknown 08/16/2024 3:18 PM ICE CREAM MACHINE OPERATOR 08/16/2024 3:26 PM ICE CREAM MACHINE OPERATOR Can Woo MD LAB - CHEMISTRY ORDE RAJEEV Performing Organization Address City/[facility]/ZIP Co de Phone Number [address] [address], [place] [phone] * (ABNORMAL) BASIC METABOLIC PANEL (CALCIUM TOTAL) (08/16/2024 10:34 AM ICE CREAM MACHINE OPERATOR) BUN 54(H) 7 - 26 mg/dL 08/16/2024 2:59 PM [facility] Creatinine 5.58(H) 0.71 - 1.16 mg/dL 08/16/2024 2:59 PM [facility] Sodium 138 136 - 145 mmol/L 08/16/2024 2:59 PM [facility] Potassium 5.0(H) 3.5 - 4.5 mmol/L 08/16/2024 2:59 PM [facility] Comment:Hemolysis detected i n this specimen. Hemolysis may cause false elevations in potassium leading to pseudohyperkalemia or masked hypokalemia. Recommend repeat testing if clinically indicated. Chloride 101 98 - 107 mmol/L 08/16/2024 2:59 PM [facility] CO2 14(L) 22 - 29 mmol/L 08/16/2024 2:59 PM [facility] Glucose 79 70 - 99 mg/dL 08/16/2024 2:59 PM [facility] Calcium 7.8(L) 8.4 - 10.2 mg/dL 08/16/2024 2:59 PM [facility] Anion Gap 23(H) 6 - 16 08/16/2024 2:59 PM [facility] BUN/Creatinine Ratio 10 7 - 23 08/02 2:59 PM [facility] Osmolality Calculated 300(H) 275 - 295 mOsm/kg 08/16/2024 2:59 PM [facility] eGFR by CKD-EPI 10(L) >=90 mL/min/1 .73 m2 08/16/2024 2:59 PM [facility] Blood BLOOD SPECIMEN / Unknown Venipuncture / Unknown 08/16/2024 10:34 AM ICE CREAM MACHINE OPERATOR 08/16/2024 10:38 AM [facility] Francesco Malik MD LAB - CHEMISTRY ORD ERABLES [facility] [address] [place] [address], [facility] [phone] * (ABNORMAL) CK BLOOD (08/16/2024 10:34 AM ICE CREAM MACHINE OPERATOR) CK Total 5,864(H) 30 - 200 U/L 08/16/2024 11:20 AM [facility] Comment:Result obtained by artem galaviz. Blood BLOOD SPECIMEN / Unknown Venipuncture / Unknown 08/16/2024 10:34 AM ICE CREAM MACHINE OPERATOR 08/16/2024 10:38 AM ICE CREAM MACHINE OPERATOR Francesco Malik MD LAB - CHEMISTRY ORD ERABLES Performing Organization Address City/[facility]/ZIP Co de Phone Number [place] [phone], [facility] [phone] * (ABNORMAL) URINE MICROSCOPIC ONLY REFLEX TO CULTURE (08/16/2024 9:23 AM ICE CREAM MACHINE OPERATOR) Reflex Status Culture not indicated 08/16/2024 [...] Unknown Collection / Unknown 08/16/2024 9:23 AM ICE CREAM MACHINE OPERATOR 08/16/2024 9:44 AM ICE CREAM MACHINE OPERATOR Cresencio Gonzalez MD LAB - URINALYSIS O RDERABLES [address] [address], [place] [phone] * UREA NITROGEN URINE RANDOM (08/16/2024 9:23 AM ICE CREAM MACHINE OPERATOR) Urea Nitrogen Random Urine 310 Not Established mg/dL 08/16/2024 10:08 AM ICE CREAM MACHINE OPERATOR [facility] Urine URINE SPECIMEN OBTAINED BY CLEAN CATCH PROCEDURE / Unknown Collection / Unknown 08/16/2024 9:23 AM ICE CREAM MACHINE OPERATOR 08/16/2024 9:44 AM ICE CREAM MACHINE OPERATOR Francesco Malik MD LAB - URINE BEE PRODUCER RY ORDERABLES [address] [address], [place] [phone] * CREATININE URINE RANDOM (08/16/2024 9:23 AM ICE CREAM MACHINE OPERATOR) Creatinine Urine 113.55 Not Established mg/dL 08/16/2024 10:08 AM [facility] Urine URINE SPECIMEN OBTAINED BY CLEAN CATCH PROCEDURE / Unknown Collection / Unknown 08/16/2024 9:23 AM ICE CREAM MACHINE OPERATOR 08/16/2024 9:44 AM ICE CREAM MACHINE OPERATOR Francesco Malik MD LAB - URINE BEE PRODUCER RY ORDERABLES [address] [address], [place] [phone] * LYTES (NA K) URINE RANDOM PANEL (08/16/2024 9:23 AM ICE CREAM MACHINE OPERATOR) Sodium Urine 60 Not Established mmol/L 08/16/2024 10:08 AM ICE CREAM MACHINE OPERATOR [facility] Potassium Urine 22.6 Not Established mmol/L 08/16/2024 10:08 AM ICE CREAM MACHINE OPERATOR [facility] Urine URINE SPECIMEN OBTAINED BY CLEAN CATCH PROCEDURE / Unknown Collection / Unknown 08/16/2024 9:23 AM ICE CREAM MACHINE OPERATOR 08/16/2024 9:44 AM ICE CREAM MACHINE OPERATOR Francesco Malik MD LAB - URINE BEE PRODUCER RY ORDERABLES [facility] [address] [place] [address], [facility] [phone] * (ABNORMAL) URINALYSIS REFLEX MICROSCOPIC REFLEX CULTURE (08/16/2024 9:23 AM ICE CREAM MACHINE OPERATOR) Color UA Rosario(A) Straw, Yellow 08/16/2024 9:53 AM [facility] Clarity UA Slt Cloudy(A) Clear 08/16/2024 9:53 AM [facility] Specific [place] UA 1.041(H) 1.005 - 1.030 08/16/2024 9:53 [...] Unknown Collection / Unknown 08/16/2024 9:23 AM ICE CREAM MACHINE OPERATOR 08/16/2024 9:44 AM [facility] Narrative [facility] - 08/16/2024 9:53 AM ICE CREAM MACHINE OPERATOR Cresencio Gonzalez MD LAB - URINALYSIS O RDERABLES [facility] [address] [place] [address], [facility] [phone] * (ABNORMAL) URINE DRUG SCREEN IMMUNOASSAY (08/16/2024 9:23 AM ICE CREAM MACHINE OPERATOR) Amphetamines Screen Urine Negative Negative : < [...] Unknown Collection / Unknown 08/16/2024 9:23 AM [facility] 08/16/2024 9:44 AM [facility] - 08/16/2024 10:07 AM [facility] The Urine Toxicology Screening Panel does not screen for Propoxyphene, Meprobamate, Carisoprodol, Trazodone, [id number] medications and/or volatiles (Acetone, Isopropanol, Methanol or Ethylene Glycol). Ethanol, Salicylate, Acetaminophen, Tricyclic Antidepressants and several therapeutic drugs may be individually assayed in serum or plasma specimen. Toxicology testing by the [facility] is an aid to medical diagnosis and treatment of patients. No documented chain of custody was maintained. Results are intended to be used for clinical purposes only. ? Cresencio Gonzalez MD LAB - URINE CHEMIS TRY ORDERABLES [facility] [address] [place] [address], [facility] [phone] * (ABNORMAL) HEPATIC FUNCTION PANEL (08/16/2024 8:52 AM ICE CREAM MACHINE OPERATOR) Pathologist [facility] Protein Total 5.7(L) 6.0 - 8.3 g/dL 024 9:36 AM [facility] Albumin 2.7(L) 3.4 - 5.0 g/dL 08/16/2024 9:36 AM [facility] Bilirubin Total 0.4 0.2 - 1.2 mg/dL 08/02 9:36 AM [facility] Bilirubin Conjugated 0.3 0.1 - 0.5 mg/dL 08/16/2024 9:36 AM [facility] Bilirubin Unconjugated 0.1 Unconjugated Bilirubin is a calculated value: Reference ranges have not been established. mg/dL 08/16/2024 9:36 AM [facility] Alkaline Phosphatase 64 40 - 150 U/L 08/16/2024 9:36 AM [facility] ALT 41 5 - 55 U/L 08/16/2024 9:36 AM [facility] AST 78(H) 5 - 34 U/L 08/16/2024 9:36 AM [facility] Albumin/Globulin Ratio 0.9(L) 1.1 - 2.3 08/16/2024 9:36 AM ICE CREAM MACHINE OPERATOR [facility] Blood BLOOD SPECIMEN / Unknown Venipuncture / Unknown 08/16/2024 8:52 AM ICE CREAM MACHINE OPERATOR 08/16/2024 9:12 AM ICE CREAM MACHINE OPERATOR Francesco Malik MD LAB - CHEMISTRY ORD ERABLES Performing Organization Address [facility] Co de Phone Number [address] [address], [facility] [phone] * ACETAMINOPHEN LEVEL (08/16/2024 8:52 AM ICE CREAM MACHINE OPERATOR) Acetaminophen <3.0 <3.0 ug/mL 08/16/2024 9:36 AM ICE CREAM MACHINE OPERATOR [facility] Blood BLOOD SPECIMEN / Unknown Venipuncture / Unknown 08/16/2024 8:52 AM ICE CREAM MACHINE OPERATOR 08/16/2024 9:12 AM ICE CREAM MACHINE OPERATOR Narrative [facility] - 08/16/2024 9:36 AM ICE CREAM MACHINE OPERATOR Acetaminophen Toxicity Levels (Hours Post Ingestion): ? [...] may alter the peak level. Contact the [facility] at or reserved for healthcare professionals to assist you in evaluating potentially toxic acetaminophen levels. Cresencio Gonzalez MD LAB - CHEMISTRY OR DERABLES Performing Organization Address City/[facility]/ZIP Co de Phone Number [facility] [address] [place] [address], [place] [phone] * (ABNORMAL) TRICYCLICS SCREEN BLOOD (08/16/2024 8:52 AM ICE CREAM MACHINE OPERATOR) Tricyclic Antidepressants 248(H) 80 - 200 ng/mL 08/16/2024 9:39 AM [facility] Blood BLOOD SPECIMEN / Unknown Venipuncture / Unknown 08/16/2024 8:52 AM ICE CREAM MACHINE OPERATOR 08/16/2024 9:03 AM ICE CREAM MACHINE OPERATOR [facility] - 08/16/2024 9:39 AM ICE CREAM MACHINE OPERATOR Many drugs significantly cross-react with this [...] - CHEMISTRY OR DERABLES Performing Organization Address City/[facility]/ZIP Co de Phone Number [address] [address], [employer] [phone] * (ABNORMAL) SALICYLATE LEVEL BLOOD (08/16/2024 8:52 AM [facility]) Salicylate <5(L) 15 - 30 mg/dL 08/16/2024 9:36 AM [facility] Blood BLOOD SPECIMEN / Unknown Venipuncture / Unknown 08/16/2024 8:52 AM ICE CREAM MACHINE OPERATOR 08/16/2024 9:12 AM ICE CREAM MACHINE OPERATOR [facility] - 08/16/2024 9:36 AM ICE CREAM MACHINE OPERATOR This test is not intended for use with low-dose aspirin therapy. Most patients on low-dose aspirin for cardiovascular prophylaxis will have serum concentrations near or below the lower limit of the analytical range. Cresencio Gonzalez MD LAB - CHEMISTRY OR DERABLES Performing Organization Address City/[facility]/ZIP Co de Phone Number [address] [address], [place] [phone] * XR PELVIS 1 OR 2VW (08/16/2024 7:20 AM ICE CREAM MACHINE OPERATOR) Anatomical Region Laterality Modality Pelvis Digital Radiogra phy 08/16/2024 7:22 AM ICE CREAM MACHINE OPERATOR Impressions 08/16/2024 3:31 PM ICE CREAM MACHINE OPERATOR IMPRESSION: No acute displaced fracture or dislocation of pelvis is identified. Report dictated by Rafi Vicente MD (administrative resident). Mason Brizuela have personally reviewed and interpreted this examination/study. > Interpreting Provider: Mason Lucero on 08/16/2024 3:31 PM Narrative 08/16/2024 3:31 PM ICE CREAM MACHINE OPERATOR EXAMINATION: XR PELVIS 1 OR 2VW DATE/TIME OF EXAM: ??08/16/2024 7:22 AM, LOCATION ??[facility] HISTORY: Trauma Fracture suspected COMPARISON: [...] DATE/TIME OF EXAM: 08/16/2024 7:22 AM, LOCATION [facility] HISTORY: Trauma Fracture suspected COMPARISON: [...] identified. Report dictated by Rafi Vicente MD (administrative resident). Mason Brizuela have personally reviewed and interpreted this examination/study. > Interpreting Provider: Mason Lucero on 08/16/2024 3:31 PM Cresencio Gonzalez MD DIAGNOSTIC IMAGING ORDERABLES * CT Angio Lower Extremity Right (08/16/2024 6:58 AM ICE CREAM MACHINE OPERATOR) Anatomical Region Laterality Modality Lower Extremity Computed Tomogra phy 08/16/2024 7:57 AM ICE CREAM MACHINE OPERATOR Impressions 08/16/2024 5:06 PM ICE CREAM MACHINE OPERATOR IMPRESSION: Three-vessel runoff of bilateral lower extremity arteries to the level of ankle. Of note, the dorsalis pedis and tibialis posterior arteries are diminutive bilaterally likely secondary to diffuse spasm but patent without evidence of contrast extravasation to suggest arterial injury or active bleeding. > Dictated by Felix Awad MD (administrative resident). Viviana Brizuela MD have personally reviewed and interpreted this examination/study. > Interpreting Provider: Viviana Rain MD on 08/16/2024 5:06 PM Narrative 08/16/2024 5:06 PM ICE CREAM MACHINE OPERATOR PROCEDURE: ??CT ANGIO LOWER EXTREMITY RIGHT, CT ANGIO LOWER EXTREMITY LEFT, DATE/TIME OF EXAM: ??08/16/2024 7:20 AM, LOCATION ??[facility] INDICATION: W10.8XXA: Fall (on) (from) [...] DATE/TIME OF EXAM: 08/16/2024 7:20 AM, LOCATION [facility] INDICATION: W10.8XXA: Fall (on) (from) [...] bleeding. > Dictated by Felix Awad MD (administrative resident). I, Viviana Rain MD have personally reviewed and interpreted this examination/study. > Interpreting Provider: Viviana Rain MD on 08/16/2024 5:06 PM Chet Henning MD CT ORDERABLES * CT Angio Lower Extremity Left (08/16/2024 6:58 AM ICE CREAM MACHINE OPERATOR) Anatomical Region Laterality Modality Lower Extremity Computed Tomogra phy 08/16/2024 7:57 AM ICE CREAM MACHINE OPERATOR Impressions 08/16/2024 5:06 PM ICE CREAM MACHINE OPERATOR IMPRESSION: Three-vessel runoff of bilateral lower extremity arteries to the level of ankle. Of note, the dorsalis pedis and tibialis posterior arteries are diminutive bilaterally likely secondary to diffuse spasm but patent without evidence of contrast extravasation to suggest arterial injury or active bleeding. > Dictated by Felix Awad MD (administrative resident). I, Viviana Rain MD have personally reviewed and interpreted this examination/study. > Interpreting Provider: Viviana Rain MD on 08/16/2024 5:06 PM Narrative 08/16/2024 5:06 PM ICE CREAM MACHINE OPERATOR PROCEDURE: ??CT ANGIO LOWER EXTREMITY RIGHT, CT ANGIO LOWER EXTREMITY LEFT, DATE/TIME OF EXAM: ??08/16/2024 7:20 AM, LOCATION ??[facility] INDICATION: W10.8XXA: Fall (on) (from) [...] DATE/TIME OF EXAM: 08/16/2024 7:20 AM, LOCATION [facility] INDICATION: W10.8XXA: Fall (on) (from) [...] bleeding. > Dictated by Felix Awad MD (administrative resident). I, Viviana Rain MD have personally reviewed and interpreted this examination/study. > Interpreting Provider: Viviana Rain MD on 08/16/2024 5:06 PM Chet Henning MD CT ORDERABLES * CT LUMBAR SPINE WO CONTRAST - T/L-spine trauma, Spine fracture (08/16/2024 6:58 AM ICE CREAM MACHINE OPERATOR) Anatomical Region Laterality Modality Spine Computed Tomogra phy 08/16/2024 6:28 AM ICE CREAM MACHINE OPERATOR Impressions 08/16/2024 10:30 AM ICE CREAM MACHINE OPERATOR IMPRESSION: 1.No acute intracranial hemorrhage, midline [...] findings. Report dictated by Rafi Vicente MD (administrative resident). I, Ruby Villanueva MD have personally reviewed and interpreted this examination/study. > Interpreting Provider: Ruby Villanueva MD on 08/16/2024 10:30 AM Narrative 08/16/2024 10:30 AM ICE CREAM MACHINE OPERATOR PROCEDURE: ??CT HEAD WO CONTRAST, CT LUMBAR SPINE WO CONTRAST, CT THORACIC SPINE WO CONTRAST, CT CERVICAL SPINE WO CONTRAST, DATE/TIME OF EXAM: 08/16/2024 7:20 AM, LOCATION ??[facility] INDICATION: Trauma EXAMINATION: 1.Computed tomography [...] DATE/TIME OF EXAM: 08/16/2024 7:20 AM, LOCATION [facility] INDICATION: Trauma EXAMINATION: 1.Computed tomography [...] findings. Report dictated by Rafi Vicente MD (administrative resident). Ruby Brizuela MD have personally reviewed and interpretedthis examination/study. > Interpreting Provider: Ruby Villanueva MD on 08/16/2024 10:30AM Cresencio Gonzalez MD CT ORDERABLES * CT THORACIC SPINE WO CONTRAST - T/L-spine trauma, spine fracture (08/16/2024 6:58 AM ICE CREAM MACHINE OPERATOR) Anatomical Region Laterality Modality Spine Computed Tomogra phy 08/16/2024 6:28 AM ICE CREAM MACHINE OPERATOR Impressions 08/16/2024 10:30 AM ICE CREAM MACHINE OPERATOR IMPRESSION: 1.No acute intracranial hemorrhage, midline [...] findings. Report dictated by Rafi Vicente MD (administrative resident). Ruby Brizuela MD have personally reviewed and interpreted this examination/study. > Interpreting Provider: Ruby Villanueva MD on 08/16/2024 10:30 AM Narrative 08/16/2024 10:30 AM ICE CREAM MACHINE OPERATOR PROCEDURE: ??CT HEAD WO CONTRAST, CT LUMBAR SPINE WO CONTRAST, CT THORACIC SPINE WO CONTRAST, CT CERVICAL SPINE WO CONTRAST, DATE/TIME OF EXAM: 08/16/2024 7:20 AM, LOCATION ??[facility] INDICATION: Trauma EXAMINATION: 1.Computed tomography [...] DATE/TIME OF EXAM: 08/16/2024 7:20 AM, LOCATION [facility] INDICATION: Trauma EXAMINATION: 1.Computed tomography [...] findings. Report dictated by Rafi Vicente MD (administrative resident). Ruby Brizuela MD have personally reviewed and interpretedthis examination/study. > Interpreting Provider: Ruby Villanueva MD on 08/16/2024 10:30AM Cresencio Gonzalez MD CT ORDERABLES * CT CHEST ABDOMEN PELVIS W CONT - Abdomen-pelvis trauma, blunt or penetrating (08/16/2024 6:58 AM ICE CREAM MACHINE OPERATOR) Anatomical Region Laterality Modality Chest, Abdomen, Pelvis Computed Tomography 08/16/2024 8:11 AM ICE CREAM MACHINE OPERATOR Impressions 08/16/2024 5:01 PM ICE CREAM MACHINE OPERATOR Impression 1. No acute visceral, vascular, [...] gastroesophageal reflux/esophagitis. Report dictated by Bryon Watson MD(administrative resident). Viviana Brizuela MD have personally reviewed and interpreted this examination/study. > Interpreting Provider: Viviana Rain MD on 08/16/2024 5:01 PM Narrative 08/16/2024 5:01 PM ICE CREAM MACHINE OPERATOR PROCEDURE: ??CT CHEST ABDOMEN PELVIS W CONT, DATE/TIME OF EXAM: ??08/16/2024 7:20 AM, LOCATION ??[facility] INDICATION: Trauma COMPARISON: None. EXAMINATION: [...] CONT, DATE/TIME OF EXAM:08/16/2024 7:20 AM, LOCATION [facility] INDICATION: Trauma COMPARISON: None. EXAMINATION: [...] ofgastroesophageal reflux/esophagitis. Report dictated by Bryon Watson MD(administrative resident). Viviana Brizuela MD have personally reviewed and interpreted this examination/study. > Interpreting Provider: Viviana Rain MD on 08/16/2024 5:01 PM Cresencio Gonzalez MD CT ORDERABLES * CT CERVICAL SPINE WO CONTRAST - C-Spine Trauma, Spine fracture (08/16/2024 6:58 AM ICE CREAM MACHINE OPERATOR) Anatomical Region Laterality Modality Spine Computed Tomogra phy 08/16/2024 6:28 AM ICE CREAM MACHINE OPERATOR Impressions 08/16/2024 10:30 AM ICE CREAM MACHINE OPERATOR IMPRESSION: 1.No acute intracranial hemorrhage, midline [...] findings. Report dictated by Rafi Vicente MD (administrative resident). Ruby Brizuela MD have personally reviewed and interpreted this examination/study. > Interpreting Provider: Ruby Villanueva MD on 08/16/2024 10:30 AM Narrative 08/16/2024 10:30 AM ICE CREAM MACHINE OPERATOR PROCEDURE: ??CT HEAD WO CONTRAST, CT LUMBAR SPINE WO CONTRAST, CT THORACIC SPINE WO CONTRAST, CT CERVICAL SPINE WO CONTRAST, DATE/TIME OF EXAM: 08/16/2024 7:20 AM, LOCATION ??[facility] INDICATION: Trauma EXAMINATION: 1.Computed tomography [...] DATE/TIME OF EXAM: 08/16/2024 7:20 AM, LOCATION [facility] INDICATION: Trauma EXAMINATION: 1.Computed tomography [...] findings. Report dictated by Rafi Vicente MD (administrative resident). Ruby Brizuela MD have personally reviewed and interpretedthis examination/study. > Interpreting Provider: Ruby Villanueva MD on 08/16/2024 10:30AM Cresencio Gonzalez MD CT ORDERABLES * CT HEAD WO CONTRAST - Head Trauma, CSF leak, mental status changes (08/16/2024 6:58 AM ICE CREAM MACHINE OPERATOR) Anatomical Region Laterality Modality Head Computed Tomogra phy 08/16/2024 6:28 AM ICE CREAM MACHINE OPERATOR Impressions 08/16/2024 10:30 AM ICE CREAM MACHINE OPERATOR IMPRESSION: 1.No acute intracranial hemorrhage, midline [...] findings. Report dictated by Rafi Vicente MD (administrative resident). Ruby Brizuela MD have personally reviewed and interpreted this examination/study. > Interpreting Provider: Ruby Villanueva MD on 08/16/2024 10:30 AM Narrative 08/16/2024 10:30 AM ICE CREAM MACHINE OPERATOR PROCEDURE: ??CT HEAD WO CONTRAST, CT LUMBAR SPINE WO CONTRAST, CT THORACIC SPINE WO CONTRAST, CT CERVICAL SPINE WO CONTRAST, DATE/TIME OF EXAM: 08/16/2024 7:20 AM, LOCATION ??[facility] INDICATION: Trauma EXAMINATION: 1.Computed tomography [...] DATE/TIME OF EXAM: 08/16/2024 7:20 AM, LOCATION [facility] INDICATION: Trauma EXAMINATION: 1.Computed tomography [...] findings. Report dictated by Rafi Vicente MD (administrative resident). I, Ruby Villanueva MD have personally reviewed and interpretedthis examination/study. > Interpreting Provider: Ruby Villanueva MD on 08/16/2024 10:30AM Cresencio Gonzalez MD CT ORDERABLES * XR CHEST 1VW PORTABLE (08/16/2024 6:11 AM ICE CREAM MACHINE OPERATOR) Anatomical Region Laterality Modality Chest Digital Radiogra phy 08/16/2024 6:04 AM ICE CREAM MACHINE OPERATOR Narrative 08/16/2024 2:29 PM ICE CREAM MACHINE OPERATOR PROCEDURE: ??XR CHEST 1VW PORTABLE, DATE/TIME OF EXAM: ??08/16/2024 5:44 AM, LOCATION ??[facility] INDICATION: Trauma ADDITIONAL CLINICAL INFORMATION: [...] visualized. Report dictated by Rafi Vicente MD (administrative resident). Mason Brizuela have personally reviewed and interpreted this examination/study. > Interpreting Provider: Mason Lucero on 08/16/2024 2:29 PM Procedure Note Mason Lucero MD - 08/16/2024 PROCEDURE: XR CHEST 1VW PORTABLE, DATE/TIME OF EXAM: 08/16/2024 5:44AM, LOCATION [facility] INDICATION: Trauma ADDITIONAL CLINICAL INFORMATION: [...] visualized. Report dictated by Rafi Vicente MD (administrative resident). Mason Brizuela have personally reviewed and interpreted this examination/study. > Interpreting Provider: Mason Lucero on 08/16/2024 2:29 PM Cresencio Gonzalez MD DIAGNOSTIC IMAGING ORDERABLES * TYPE + SCREEN PANEL (08/16/2024 5:50 AM ICE CREAM MACHINE OPERATOR) [facility] Signature Antibody Screen NEG 4 6:49 AM ICE CREAM MACHINE OPERATOR [facility] ABO Rh B POS 08/16/2024 6:49 AM [facility] Blood Bank BLOOD SPECIMEN / Unknown Venipuncture / Unknown 08/16/2024 5:50 AM ICE CREAM MACHINE OPERATOR 08/16/2024 6:13 AM ICE CREAM MACHINE OPERATOR Cresencio Gonzalez MD LAB - BLOOD BANK O RDERABLES Performing Organization Address [facility] Co de Phone Number [facility] [address] [place] [address], [facility] [phone] * PT-INR [facility] (08/16/2024 5:50 AM ICE CREAM MACHINE OPERATOR) PT 14.3 12.1 - 14.8 Seconds 08/16/2024 6:38 AM [facility] INR 1.1 See Comment 08/16/2024 6:38 AM [facility] Comment:The suggested therap eutic range for standard coumadin (warfarin) therapy is an INR of 2.0-3.0. For high-risk patients (Mechanical Mitral Valve Prosthesis, etc.), the suggested prophylactic therapeutic range is an INR of 2.5-3.5. Blood BLOOD SPECIMEN / Unknown Venipuncture / Unknown 08/16/2024 5:50 AM ICE CREAM MACHINE OPERATOR 08/16/2024 6:12 AM ICE CREAM MACHINE OPERATOR Cresencio Gonzalez MD LAB - COAGULATION ORDERABLES Performing Organization Address [facility] Co de Phone Number [facility] [address] [place] [address], [facility] [phone] * PTT [facility] (08/16/2024 5:50 AM ICE CREAM MACHINE OPERATOR) APTT 27.4 23.0 - 38.4 Seconds 08/16/2024 6:38 AM [facility] Comment:Suggested therapeuti c range for full dose I.V. unfractionated heparin therapy for venous thromboembolism is 71 to 109 seconds. Blood BLOOD SPECIMEN / Unknown Venipuncture / Unknown 08/16/2024 5:50 AM ICE CREAM MACHINE OPERATOR 08/16/2024 6:12 AM ICE CREAM MACHINE OPERATOR Cresencio Gonzalez MD LAB - COAGULATION ORDERABLES Performing Organization Address City/[facility]/ZIP Co de Phone Number [address] [address], [facility] [phone] * LIPASE BLOOD (08/16/2024 5:50 AM ICE CREAM MACHINE OPERATOR) Lipase 13 8 - 78 U/L 08/16/2024 6:31 AM [facility] Blood BLOOD SPECIMEN / Unknown Venipuncture / Unknown 08/16/2024 5:50 AM ICE CREAM MACHINE OPERATOR 08/16/2024 6:10 AM [facility] Narrative [facility] - 08/16/2024 6:31 AM [facility] Lipase results from the [facility] Alinity analyzer may not be comparable with other methodologies. Cresencio Gonzalez MD LAB - CHEMISTRY OR DERABLES Performing Organization Address [facility]/ZIP Co de Phone Number [address] [address], [facility] [phone] * (ABNORMAL) CBC W AUTO DIFFERENTIAL (08/16/2024 5:50 AM ICE CREAM MACHINE OPERATOR) WBC 17.4(H) 4.0 - 10.7 x10E9/L 08/16/2024 6:15 AM [facility] RBC Count 4.26(L) 4.30 - 5.80 x10E12/L 08/16/2024 6:15 AM [facility] Hemoglobin 14.5 13.3 - 17.5 g/dL 08/16/2024 6:15 AM [facility] Hematocrit 43.5 38.7 - 51.1 % 08/16/2024 6:15 AM [facility] MCV 102.1(H) 80.0 - 98.0 fL 08/16/2024 6:15 AM [facility] MCH 34.0(H) 26.7 - 33.6 pg 08/16/2024 6:15 AM [facility] MCHC 33.3 31.7 - 36.3 g/dL 08/16/2024 6:15 AM [facility] RDW-CV 12.6 11.3 - 14.8 % 08/16/2024 6:15 AM [facility] Platelet Count 189 150 - 420 x10E9/L 08/16/2024 6:15 AM [facility] MPV 11.1 7.8 - 11.4 fL 08/16/2024 6:15 AM [facility] Neutrophil % 87.6(H) 41.0 - 74.0 % 08/16/2024 6:15 AM [facility] Lymphocyte % 4.4(L) 17.0 - 47.0 % 08/16/2024 6:15 AM [facility] Monocyte % 7.3 3.0 - 11.0 % 08/16/2024 6:15 AM [facility] Eosinophil % 0.1 0.0 - 7.0 % 08/16/2024 6:15 AM [facility] Basophil % 0.1 0.0 - 1.6 % 08/16/2024 6:15 AM [facility] Immature Granulocytes % 0.5 0.0 - 1.0 % 08/16/2024 6:15 AM [facility] Neutrophil Absolute 15.27(H) 1.60 - 7.50 x10E9/L 08/16/2024 6:15 AM [facility] Lymphocyte Absolute 0.77(L) 1.00 - 4.40 x10E9/L 08/16/2024 6:15 AM [facility] Monocyte Absolute 1.27(H) 0.15 - 1.00 x10E9/L 08/16/2024 6:15 AM [facility] Eosinophil Absolute 0.01 0.00 - 0.60 x10E9/L 08/16/2024 6:15 AM [facility] Basophil Absolute 0.02 0.00 - 0.13 x10E9/L 08/16/2024 6:15 AM [facility] Blood BLOOD SPECIMEN / Unknown Venipuncture / Unknown 08/16/2024 5:50 AM ICE CREAM MACHINE OPERATOR 08/16/2024 6:12 AM ICE CREAM MACHINE OPERATOR Cresencio Gonzalez MD LAB - HEMATOLOGY O RDERABLES [facility] [address] [place] [address], [facility] [phone] * (ABNORMAL) BASIC METABOLIC PANEL (CALCIUM TOTAL) (08/16/2024 5:50 AM [facility]) BUN 49(H) 7 - 26 mg/dL 08/16/2024 6:31 AM [facility] Creatinine 5.74(H) 0.71 - 1.16 mg/dL 08/16/2024 6:31 AM [facility] Sodium 136 136 - 145 mmol/L 08/16/2024 6:31 AM [facility] Potassium 4.5 3.5 - 4.5 mmol/L 08/16/2024 6:31 AM [facility] Chloride 104 98 - 107 mmol/L 08/16/2024 6:31 AM [facility] CO2 14(L) 22 - 29 mmol/L 08/16/2024 6:31 AM [facility] Glucose 123(H) 70 - 99 mg/dL 08/16/2024 6:31 AM [facility] Calcium 7.8(L) 8.4 - 10.2 mg/dL 08/16/2024 6:31 AM [facility] Anion Gap 18(H) 6 - 16 08/16/2024 6:31 AM [facility] BUN/Creatinine Ratio 9 7 - 23 08/16/2024 6:31 AM [facility] Osmolality Calculated 296(H) 275 - 295 mOsm/kg 08/16/2024 6:31 AM [facility] eGFR by CKD-EPI 10(L) >=90 mL/min/1.7 3 m2 08/16/2024 6:31 AM [facility] Blood BLOOD SPECIMEN / Unknown Venipuncture / Unknown 08/16/2024 5:50 AM ICE CREAM MACHINE OPERATOR 08/16/2024 6:10 AM [facility] Cresencio Gonzalez MD LAB - CHEMISTRY OR DERABLES [facility] [address] [place] [address], [facility] [phone] * ALCOHOL ETHYL BLOOD (08/16/2024 5:50 AM [facility]) Ethanol (mg/dL) <10 <10 mg/dL 6:31 AM [facility] Ethanol Calculated (g/dL) <0.010 <=0.010 g/dL 08/16/2024 6:31 AM [facility] Blood BLOOD SPECIMEN / Unknown Venipuncture / Unknown 08/16/2024 5:50 AM ICE CREAM MACHINE OPERATOR 08/16/2024 6:10 AM [facility] Narrative [facility] - 08/16/2024 6:31 AM [facility] Ethanol Interp <10: None Detected. Depression of GLASS BLOWING INSTRUCTOR: >100 mg/dl Potentially Critical: >250 mg/dl Potentially [...] Gonzalez MD LAB - CHEMISTRY OR DERABLES [facility] [address] [place] [address], [facility] [phone] documented in this encounter Visit Diagnoses Diagnosis Shock (HCC)- Primary Shock, unspecified Fall (on) (from) other stairs and steps, initial encounter Shock (HCC) Shock, unspecified Acute midline low back pain without sciatica Elevated CK Other nonspecific abnormal serum enzyme levels PRIYANKA (acute kidney injury) (HCC) Acute kidney failure, unspecified Non-traumatic rhabdomyolysis Neck pain Cervicalgia Acute encephalopathy Encephalopathy, unspecified Gastroesophageal reflux disease with esophagitis without hemorrhage Common bile duct dilatation Other specified disorders of biliary tract Fall (on) (from) other stairs and steps, initial encounter Hiatal hernia Diaphragmatic hernia without mention of obstruction or gangrene UTI (urinary tract infection) Urinary tract infection, site not specified Aspiration pneumonitis (HCC) Pneumonitis due to inhalation of food or vomitus Chronic back pain Backache, unspecified Hypothyroidism Unspecified hypothyroidism Rhabdomyolysis PRIYANKA (acute kidney injury) (HCC) Acute kidney failure, unspecified Lactic acidosis Acidosis Acute encephalopathy Encephalopathy, unspecified Common bile duct dilation Other specified disorders of biliary tract COPD (chronic obstructive pulmonary disease) (HCC) Chronic airway obstruction, not elsewhere classified Tobacco abuse Tobacco use disorder History of lumbar laminectomy Leukocytosis Leukocytosis, unspecified GERD (gastroesophageal reflux disease) Esophageal reflux documented in this encounter Administered Medications Inactive Administered Medications - up to 3 most recent administrations Medication Order MAR Action Action Date Dose Rate Site 0.9% NaCl injection 1-10 mL 1-10 mL, Intracatheter, PRN, Other, peripheral line flush, Starting on Sat08/16/24 at 0525, Until [place] 08/20/24 at 1327, Flush peripheral IV catheter with 1-10 mL of normal saline before and after medications and prn to clear blood from the line or to verify patency. $ Given 08/17/2024 2:38 PM ICE CREAM MACHINE OPERATOR 10 mL 0.9% NaCl injection 3 mL 3 mL, Intracatheter, EVERY 8 HOURS, First dose on [place] 08/16/24 at 0600, Until Discontinued, Flush peripheral IV catheter with 3 mL of normal saline every 8 hours. $ Given 08/20/2024 5:46 AM ICE CREAM MACHINE OPERATOR 3 mL $ Given 08/19/2024 8:43 PM ICE CREAM MACHINE OPERATOR 3 mL $ Given 08/19/2024 1:52 PM ICE CREAM MACHINE OPERATOR 3 mL 0.9% NaCl IV bolus 1,500 mL, at 989.01 mL/hr, Administer over 91 Minutes, ONCE, 1 dose, On [place] 08/16/24 at 0930 $ Bolus New Bag 08/16/2024 9:38 AM ICE CREAM MACHINE OPERATOR 1,500 mL 989.01 mL/hr albuterol-ipratropium (Duo-Neb) nebulizer solution 3 mL 3 mL, Inhalation, EVERY 4 HOURS PRN, Shortness of Breath, Wheezing, Starting on Sat08/16/24 at 0634, Until [facility] 08/20/24 at 1327 azithromycin (Zithromax) tablet 500 mg 500 mg, Oral, DAILY, 3 doses, First dose on Sat08/18/24 at 0915, Last dose on Sat08/20/24 at 0900, Indication for anti-infective therapy: Suspected infection, Site of anti-infective therapy: Lower Respiratory $ Given 08/20/2024 8:31 AM ICE CREAM MACHINE OPERATOR 500 mg $ Given 08/19/2024 8:45 AM ICE CREAM MACHINE OPERATOR 500 mg $ Given 08/18/2024 9:19 AM ICE CREAM MACHINE OPERATOR 500 mg cefTRIAXone (Rocephin) syringe 2,000 mg 2,000 mg (2 g), Intravenous, EVERY 24 HOURS, 5 doses, First dose on [place] 08/16/24 at 1930, Last dose on Z[place]ma 08/20/24 at 1200, Infuse over 3-5 minutes. Mix with 19.2 mL diluent for final concentration 2000 mg/20 mL., Indication for anti-infective therapy: Suspected infection, Site of anti-infective therapy: Urine/Genitourinary $ Given 08/20/2024 10:46 AM ICE CREAM MACHINE OPERATOR 2,000 mg $ Given 08/19/2024 6:38 PM ICE CREAM MACHINE OPERATOR 2,000 mg $ Given 08/18/2024 8:38 PM ICE CREAM MACHINE OPERATOR 2,000 mg dextrose IV 12.5 g 12.5 g, Intravenous, PRN, Other, Bedside Glucose less than 70 mg/dL -If NOT able to eat and/or NPO and with IV Access, Starting on [place] 08/16/24 at 1854, Until [facility] 08/20/24 at 1327, If NOT able to eat and/or NPO and with IV Access: For Bedside Glucose 54-69 mg/dL give 12.5 g Dextrose IV STAT For Bedside Glucose LESS than 54 mg/dl verify with a second Bedside Glucose (from a different site) and give 25 g Dextrose IV STAT Re-check and Re-treat blood glucose EVERY , 10-25 minutes until blood glucose GREATER than or equal to 80 mg/dl. NOTIFY PROVIDER OF HYPOGLYCEMIC EVENT. dextrose IV 25 g 25 g, Intravenous, PRN, Other, Bedside Glucose less than 70 mg/dL -If NOT able to eat and/or NPO and with IV Access, Starting on [place] 08/16/24 at 1854, Until [facility] 08/20/24 at 1327, If NOT able to eat and/or NPO and with IV Access: For Bedside Glucose LESS than 54 mg/dl verify with a second Bedside Glucose (from a different site) and give 25 g Dextrose IV STAT Re-check and Re-treat blood glucose EVERY - 10-25 minutes until blood glucose GREATER than or equal to 80 mg/dl. - If repeat bedside glucose 54-79 give 12.5 g Dextrose IV STAT NOTIFY PROVIDER OF HYPOGLYCEMIC EVENT. DULoxetine (Cymbalta) capsule 60 mg 60 mg, Oral, DAILY, First dose on 08/17/24 at 0900, Until Discontinued, Capsules can be opened and sprinkled on food/mixed with liquids and should be used within 2 hrs (Do not crush pellets inside capsule) Whole capsules should be swallowed whole and not chewed $ Given 08/20/2024 8:31 AM ICE CREAM MACHINE OPERATOR 60 mg $ Given 08/19/2024 8:45 AM ICE CREAM MACHINE OPERATOR 60 mg $ Given 08/18/2024 9:18 AM ICE CREAM MACHINE OPERATOR 60 mg fentaNYL (PF) (Sublimaze) injection 50 mcg 50 mcg, Intravenous, ONCE, 1 dose, On 08/16/24 at 0645, Patient preference for lesser PRN pain meds may be honored when the patient requests a less strong medication, a lower dose, or a less intrusive route of administration when the lesser drug, dose and route have been ordered for the patient. This patient request must be documented in the MAR. If both oral and IV options are ordered for the same pain severity, give oral first unless patient cannot tolerate oral intake $ Given 08/16/2024 5:42 A M ICE CREAM MACHINE OPERATOR 50 mcg fentaNYL (PF) (Sublimaze) injection 50 mcg 50 mcg, Intravenous, ONCE, 1 dose, On 08/16/24 at 0730, Patient preference for lesser PRN pain meds may be honored when the patient requests a less strong medication, a lower dose, or a less intrusive route of administration when the lesser drug, dose and route have been ordered for the patient. This patient request must be documented in the MAR. If both oral and IV options are ordered for the same pain severity, give oral first unless patient cannot tolerate oral intake $ Given 08/16/2024 7:10 A M ICE CREAM MACHINE OPERATOR 50 mcg fentaNYL (Sublimaze) injection 0.05 mg/mL ADS Med 1 dose, Starting on 08/16/24 at 0541, Until 08/16/24 at 0542, Created by cabinet override Patient preference for lesser PRN pain meds may be honored when the patient requests a less strong medication, a lower dose, or a less intrusive route of administration when the lesser drug, dose and route have been ordered for the patient. This patient request must be documented in the MAR. If both oral and IV options are ordered for the same pain severity, give oral first unless patient cannot tolerate oral intake gabapentin (Neurontin) capsule 300 mg 300 mg, Oral, 2 TIMES DAILY, First dose on [place] 08/16/24 at 2200, Until Discontinued $ Given 08/20/2024 8:31 AM ICE CREAM MACHINE OPERATOR 300 mg $ Given 08/19/2024 8:41 PM ICE CREAM MACHINE OPERATOR 300 mg $ Given 08/19/2024 8:45 AM ICE CREAM MACHINE OPERATOR 300 mg glucagon (Glucagen) injection 1 mg 1 mg, Subcutaneous, PRN, Bedside Glucose less than 70 mg/dL - If NOT able to eat and/or NPO and withOUT IV Access, Starting on [place] 08/16/24 at 1854, Until [facility] 08/20/24 at 1327, If NOT able to eat and/or NPO and NO IV Access: For Bedside glucose 54-69 mg/dL ? - Give 1 mg subcutaneous For Bedside Glucose LESS than 54 mg/dl ? -?verify with a second bedside glucose (from a different site) ? -?Give 1 mg subcutaneous Re-check and Re-treat blood glucose EVERY 10-25 minutes until blood glucose GREATER than or equal to 80 mg/dl.? NOTIFY PROVIDER OF HYPOGLYCEMIC EVENT. Reconstitute vial with 1 mL of sterile water for injection for a final concentration of 1 mg/mL; shake vial gently; use immediately and discard unused portion glucose (Diabetic Use) oral gel Oral, PRN, Other, Bedside Glucose less than 70 mg/dL, Starting on [place] 08/16/24 at 1854, Until [facility] 08/20/24 at 1327, If able to take oral medications: For Bedside Glucose 54 - 69 mg/dL Give 15 grams of oral carbohydrates - 1 glucose gel (see MAR) If patient refuses glucose gel, then offer: - 4 ounces of fruit juice OR - 4 ounces non-diet soda OR - 8 ounces of fat-free milk For Bedside Glucose LESS than 54 mg/dL verify with a second Bedside Glucose (from a different site) - If pt is symptomatic, do not delay treatment - If accuracy of the POC glucose is in question, confirm glucose with a STAT laboratory test Give 30 grams of oral carbohydrates - 2 glucose gels (see MAR) If patient refuses glucose gel, then offer: - 8 ounces of fruit juice OR - 8 ounces non-diet soda OR - 16 ounces of fat-free milk Re-check and Re-treat blood glucose EVERY 10-25 minutes until blood glucose GREATER than or equal to 80 mg/dl. - If on recheck, bedside glucose 54-79 mg/dL - Give 15 grams of oral carbohydrates (see above for choices) NOTIFY PROVIDER OF HYPOGLYCEMIC EVENT. heparin injection 5,000 Units 5,000 Units, Subcutaneous, 3 TIMES DAILY, First dose on 08/16/24 at 2100, Until Discontinued $ Given 08/19/2024 8:41 PM ICE CREAM MACHINE OPERATOR 5,000 Units Abd Left Upper Quadrant $ Given 08/19/2024 2:54 PM ICE CREAM MACHINE OPERATOR 5,000 Units A bd Left Lower Quadrant $ Given 08/19/2024 8:44 AM ICE CREAM MACHINE OPERATOR 5,000 Units A bd Left Lower Quadrant HYDROcodone-acetaminophen ([place]) 10-325 MG tablet 1 tablet 1 tablet, Oral, EVERY 6 HOURS PRN, Mild Pain, Moderate Pain, Starting on 08/16/24 at 2128, Until [place] 08/20/24 at 1327, Patient preference for lesser PRN pain meds may be honored when the patient requests a less strong medication, a lower dose, or a less intrusive route of administration when the lesser drug, dose and route have been ordered for the patient. This patient request must be documented in the MAR. If both oral and IV options are ordered for the same pain severity, give oral first unless patient cannot tolerate oral intake $ Given 08/20/2024 5:45 AM ICE CREAM MACHINE OPERATOR 1 tablet $ Given 08/19/2024 8:41 PM ICE CREAM MACHINE OPERATOR 1 tablet $ Given 08/19/2024 1:51 PM ICE CREAM MACHINE OPERATOR 1 tablet iopamidol (Isovue 370) 76 % contrast Intravenous, CONTRAST ONCE, Starting on 08/16/24 at 0541, Until 08/18/24 at 0540 $ Given - Contrast 08/16/2024 6:17 AM ICE CREAM MACHINE OPERATOR 100 mL lactated ringers infusion at 150 mL/hr, Intravenous, CONTINUOUS, Starting on 08/16/24 at 1130, Until 08/16/24 at 2124 Current Rate 08/16/2024 9:46 PM ICE CREAM MACHINE OPERATOR 100 mL/hr Restarted 08/16/2024 7:59 PM ICE CREAM MACHINE OPERATOR 100 mL/hr Current Rate 08/16/2024 11:11 AM ICE CREAM MACHINE OPERATOR 100 mL/hr lactated ringers infusion at 250 mL/hr, Intravenous, CONTINUOUS, Starting on Sat08/16/24 at 2130, Until Sat08/17/24 at 0503 $ New Bag/Syringe 08/17/2024 1:10 AM ICE CREAM MACHINE OPERATOR 250 mL/hr Rate Change 08/17/2024 1:08 AM ICE CREAM MACHINE OPERATOR 250 mL/hr Rate Change 08/17/2024 1:08 AM ICE CREAM MACHINE OPERATOR 5 mL/hr lactated ringers infusion at 75 mL/hr, Intravenous, CONTINUOUS, Starting on Sat08/17/24 at 0545, Until Sat08/18/24 at 0610 $ New Bag/Syringe 08/17/2024 5:59 PM ICE CREAM MACHINE OPERATOR 75 mL/hr Current Rate 08/17/2024 3:02 PM ICE CREAM MACHINE OPERATOR 75 mL/hr Current Rate 08/17/2024 11:27 AM ICE CREAM MACHINE OPERATOR 75 mL/hr lactated ringers IV bolus 1,000 mL, at 1,935.48 mL/hr, Administer over 31 Minutes, NOW, 1 dose, On Sat08/16/24 at 1445 $ New Bag/Syringe 08/16/2024 2:48 PM ICE CREAM MACHINE OPERATOR 1,000 mL 1935.48 mL/hr levothyroxine (Synthroid) tablet 50 mcg 50 mcg, Oral, DAILY BEFORE BREAKFAST, First dose on Sat08/17/24 at 0600, Until Discontinued, Take in the morning on an empty stomach. Do not give within 4 hours of antacids, iron or calcium supplements. $ Given 08/20/2024 5:45 AM ICE CREAM MACHINE OPERATOR 50 mcg $ Given 08/19/2024 6:19 AM ICE CREAM MACHINE OPERATOR 50 mcg $ Given 08/18/2024 6:18 AM ICE CREAM MACHINE OPERATOR 50 mcg lidocaine (Lidoderm) 5 % patch 1 patch 1 patch, Administer over 12 Hours, DAILY PRN, For lower back pain, Starting on Sat08/17/24 at 1807, Until Sat08/20/24 at 1327, Apply to lower back and remove patch after a max of 12 hours of application within a 24 hour period. $ Applied 08/18/2024 9:29 AM ICE CREAM MACHINE OPERATOR 1 patch Back lisinopril (Prinivil; Zestril) tablet 20 mg 20 mg, Oral, DAILY, First dose on Sat08/17/24 at 0900, Until Discontinued $ Given 08/20/2024 8:35 AM ICE CREAM MACHINE OPERATOR 20 mg $ Given 08/19/2024 9:55 AM ICE CREAM MACHINE OPERATOR 20 mg magnesium sulfate 2 g in 50 mL bolus 2 g, at 25 mL/hr, Administer over 120 Minutes, Intravenous, ONCE, 1 dose, On Sat08/19/24 at 0915, Infuse at 1 gm/hr $ New Bag/Syringe 08/19/2024 9:59 AM ICE CREAM MACHINE OPERATOR 2 g 25 mL/hr metroNIDAZOLE (Flagyl) 500 mg in 100 mL IVPB 500 mg, at 200 mL/hr, Intravenous, EVERY 8 HOURS, First dose on Sat08/16/24 at 1930, Until Discontinued, Controlled Room Temperature, Indication for anti-infective therapy: Suspected infection, Site of anti-infective therapy: Intra-abdominal $ New Bag/Syringe 08/16/2024 8:51 PM ICE CREAM MACHINE OPERATOR 500 mg 200 mL/hr norepinephrine (Levophed) 8 mg/250 ml NS infusion premix ADS Med 1 dose, Starting on Sat08/16/24 at 0530, Until Sat08/16/24 at 0537, Created by cabinet override Central line required if infused longer than 48 hours or infusing multiple vasopressors norepinephrine (Levophed) 8 mg/250 ml NS infusion premix 0-0.4 mcg/kg/min ? 68 kg (0-51 mL/hr), Intravenous, CONTINUOUS, Starting on Sat08/16/24 at 0645, Until Sat08/17/24 at 1116, Central line required if infused longer than 48 hours or infusing multiple vasopressors, Titration Parameters: Standard Parameters, Indication: Hypotension, Initiate infusion at: 0.05 mcg/kg/min, Titrate infusion by: 0.01-0.05 mcg/kg/min, Titrate every: 1 minute, To maintain a: MAP greater than or equal to 65 mmHg, Notify Physician: unable to maintain ordered clinical parameter despite max dose, Restart Infusion: Medication may be restarted at last dose/rate administered before titrated to off. If infusion has been off for 4 or more hours, contact provider prior to restarting infusion. Rate Change 08/17/2024 3:01 AM ICE CREAM MACHINE OPERATOR 0.01 mcg/kg/min 1.28 mL/hr Rate Change 08/17/2024 1:17 AM ICE CREAM MACHINE OPERATOR 0.02 mcg/kg/min 2.55 mL /hr Rate Change 08/17/2024 1:03 AM ICE CREAM MACHINE OPERATOR 0.03 mcg/kg/min 3.83 mL /hr pantoprazole EC (Protonix) tablet 40 mg 40 mg, Oral, EVERY MORNING, First dose on Sat08/17/24 at 0900, Until Discontinued, Do not crush, chew, or cut in half. $ Given 08/20/2024 8:31 AM ICE CREAM MACHINE OPERATOR 40 mg $ Given 08/19/2024 8:45 AM ICE CREAM MACHINE OPERATOR 40 mg $ Given 08/18/2024 9:18 AM ICE CREAM MACHINE OPERATOR 40 mg perflutren lipid microsphere (Definity) injection 1.5 mL 1.5 mL, Intravenous, INTRA-PROCEDURE ONCE, 1 dose, On Sat08/17/24 at 1315, Shake well before using. $ Given 08/17/2024 2:37 PM ICE CREAM MACHINE OPERATOR 1.5 mL polyethylene glycol 3350 (Miralax) packet 17 g 17 g, Oral, ONCE, 1 dose, On Sat08/16/24 at 2115, Mix in 8 ounces of water, juice, soda, coffee or tea prior to administration $ Given 08/16/2024 10:04 PM ICE CREAM MACHINE OPERATOR 17 g potassium - sodium phosphates (Phos-Nak) powder 1 packet 1 packet, Oral, 3 TIMES DAILY WITH MEALS, 3 doses, First dose on Sat08/19/24 at 1200, Last dose on Sat08/20/24 at 0800, Mix contents of packet in 6 to 8 ounces of water and drink, may taste better if cold Contains Phos 8 mmol, K+ 7 mEq, Na 7 mEq per packet $ Given 08/20/2024 8:33 AM ICE CREAM MACHINE OPERATOR 1 packet $ Given 08/19/2024 6:38 PM ICE CREAM MACHINE OPERATOR 1 packet $ Given 08/19/2024 2:54 PM ICE CREAM MACHINE OPERATOR 1 packet potassium chloride 40 mEq in 270 mL bolus 40 mEq, at 67.5 mL/hr, Administer over 4 Hours, Intravenous, ONCE, 1 dose, On Sat08/19/24 at 1000 Current Rate 08/19/2024 5:09 PM ICE CREAM MACHINE OPERATOR 6 7.5 mL/hr Current Rate 08/19/2024 1:28 PM ICE CREAM MACHINE OPERATOR 67.5 mL/hr $ New Bag/Syringe 08/19/2024 1:26 PM ICE CREAM MACHINE OPERATOR 40 mEq 67.5 m L/hr senna (Senokot) tablet 8.6 mg 8.6 mg, Oral, DAILY, First dose on Sat08/17/24 at 0900, Until Discontinued $ Given 08/20/2024 8:31 AM ICE CREAM MACHINE OPERATOR 8.6 mg $ Given 08/17/2024 8:07 AM ICE CREAM MACHINE OPERATOR 8.6 mg sodium - potassium phosphates (K Phos Neutral) tablet 2 tablet 2 tablet, Oral, EVERY 4 HOURS, 2 doses, First dose on Sat08/18/24 at 0815, Last dose on Sat08/18/24 at 1200, Contains Phos 8 mmol, K+ 1.1 mEq, Na 13 mEq per tablet $ Given 08/18/2024 11:24 AM ICE CREAM MACHINE OPERATOR 2 tablets $ Given 08/18/2024 9:18 AM ICE CREAM MACHINE OPERATOR 2 tablets sodium - potassium phosphates (K Phos Neutral) tablet 2 tablet 2 tablet, Oral, ONCE, 1 dose, On Sat08/20/24 at 1100, Contains Phos 8 mmol, K+ 1.1 mEq, Na 13 mEq per tablet $ Given 08/20/2024 10:46 AM ICE CREAM MACHINE OPERATOR 2 tablets sodium bicarbonate 8.4 % 150 mEq in dextrose 5 % 1,150 mL IVF at 100 mL/hr, Intravenous, CONTINUOUS, Starting on Sat08/16/24 at 1930, Until Sat08/16/24 at 2302 Rate Change 08/16/2024 9:47 PM ICE CREAM MACHINE OPERATOR 100 mL/hr Current Rate 08/16/2024 9:46 PM ICE CREAM MACHINE OPERATOR 150 mL/hr $ New Bag/Syringe 08/16/2024 8:03 PM ICE CREAM MACHINE OPERATOR 150 mL /hr sodium phosphate 30 mmol in 260 mL bolus 30 mmol, at 43.33 mL/hr, Administer over 6 Hours, Intravenous, ONCE, 1 dose, On Sat08/18/24 at 0930 $ New Bag/Syringe 08/18/2024 11:27 AM ICE CREAM MACHINE OPERATOR 30 mmol 43.33 mL/hr traZODone (Desyrel) tablet 100 mg 100 mg, Oral, AT BEDTIME, First dose on Sat08/17/24 at 0045, Until Discontinued $ Given 08/19/2024 8:41 PM ICE CREAM MACHINE OPERATOR 100 mg $ Given 08/18/2024 8:38 PM ICE CREAM MACHINE OPERATOR 100 mg $ Given 08/17/2024 8:39 PM ICE CREAM MACHINE OPERATOR 100 mg documented in this encounter Active and Recently Administered Medications Times are shown in ICE CREAM MACHINE OPERATOR. Scheduled Medication Order 08/18/2024 08/19/202408/2008/20/2024 0.9% NaCl injection 3 mL(Linked Group 1) 3 mL, Intracatheter, EVERY 8 HOURS, First dose on Sat08/16/24 at 0600, Until Discontinued, Flush peripheral IV catheter with 3 mL of normal saline every 8 hours. 0919 ($ Given - Provider: Jana Faulkner RN)1451 ($ Given - Provider: Jana Faulkner RN)203 ($ Given - Provider: Carley Hensley RN) 0622 ($ Given - Provider: Carley Hensley RN)1352 ($ Given - Provider: Tatyana Arreguin RN)204 ($ Given - Provider: Oliva Morejon, RN) 0546 ($ Given - Provider: Oliva Morejon, RN) azithromycin (Zithromax) tablet 500 mg (COMPLETED) 500 mg, Oral, DAILY, 3 doses, First dose on Sat08/18/24 at 0915, Last dose on Sat08/20/24 at 0900, Indication for anti-infective therapy: Suspected infection, Site of anti-infective therapy: Lower Respiratory 09 ($ Given - Provider: Jana Faulkner RN) 0845 ($ Given - Provider: Tatyana Arreguin, RN) 0831 ($ Given - Provider: Glenna Smith, ALANNAH) cefTRIAXone (Rocephin) syringe 2,000 mg (COMPLETED) 2,000 mg (2 g), Intravenous, EVERY 24 HOURS, 5 doses, First dose on Sat08/16/24 at 1930, Last dose on Sat08/20/24 at 1200, Infuse over 3-5 minutes. Mix with 19.2 mL diluent for final concentration 2000 mg/20 mL., Indication for anti-infective therapy: Suspected infection, Site of anti-infective therapy: Urine/Genitourinary 2037 ($ Given - Provider: Carley Hensley RN) 183 ($ Given - Provider: Tatyana Arreguin RN) 1046 ($ Given - Provider: Glenna Smith, ALANNAH) DULoxetine (Cymbalta) capsule 60 mg 60 mg, Oral, DAILY, First dose on Sat08/17/24 at 0900, Until Discontinued, Capsules can be opened and sprinkled on food/mixed with liquids and should be used within 2 hrs (Do not crush pellets inside capsule) Whole capsules should be swallowed whole and not chewed 0918 ($ Given - Provider: Jana Faulkner RN) 0845 ($ Given - Provider: Tatyana Arreguin RN) 0831 ($ Given - Provider: Glenna Smith, ALANNAH) gabapentin (Neurontin) capsule 300 mg 300 mg, Oral, 2 TIMES DAILY, First dose on Sat08/16/24 at 2200, Until Discontinued 09 ($ Given - Provider: Jana Faulkner RN)2037 ($ Given - Provider: Carley Hensley RN) 0845 ($ Given - Provider: Tatyana Arreguin RN)2040 ($ Given - Provider: Oliva Morejon, RN) 0831 ($ Given - Provider: Glenna Smith, ALANNAH) heparin injection 5,000 Units 5,000 Units, Subcutaneous, 3 TIMES DAILY, First dose on Sat08/16/24 at 2100, Until Discontinued 917 ($ Given - Provider: Jana Faulkner RN)1450 ($ Given - Provider: Jana Fualkner RN)2037 ($ Given - Provider: Carley Hensley RN) 0844 ($ Given - Provider: Tatyana Arreguin RN)145 ($ Given - Provider: Tatyana Arreguin, RN)2040 ($ Given - Provider: Oliva Morejon, ALANNAH) 0833 (Not Administered - Provider: Glenna Smith RN - Reason: Refused-Patient) levothyroxine (Synthroid) tablet 50 mcg 50 mcg, Oral, DAILY BEFORE BREAKFAST, First dose on Sat08/17/24 at 0600, Until Discontinued, Take in the morning on an empty stomach. Do not give within 4 hours of antacids, iron or calcium supplements. 0618 ($ Given - Provider: Carley Hensley RN) 0619 ($ Given - Provider: Carley Hensley RN) 0545 ($ Given - Provider: Oliva Morejon, ALANNAH) lisinopril (Prinivil; Zestril) tablet 20 mg 20 mg, Oral, DAILY, First dose on Sat08/17/24 at 0900, Until Discontinued 0900 (Dose Held) 0858 (Unheld by Provider - Provider: Britton Trujillo MD)0955 ($ Given - Provider: Tatyana Arreguin RN) 0835 ($ Given - Provider: Glenna Smith, ALANNAH) magnesium sulfate 2 g in 50 mL bolus (COMPLETED) 2 g, at 25 mL/hr, Administer over 120 Minutes, Intravenous, ONCE, 1 dose, On Sat08/19/24 at 0915, Infuse at 1 gm/hr 0959 ($ New Bag/Syringe - Provider: Tatyana Arreguin RN)1130 (Stopped - Provider: Tatyana Arreguin RN)1422 (Stopped - Provider: Tatyana Arreguin RN) pantoprazole EC (Protonix) tablet 40 mg 40 mg, Oral, EVERY MORNING, First dose on Sat08/17/24 at 0900, Until Discontinued, Do not crush, chew, or cut in half. 0918 ($ Given - Provider: Jana Faulkner RN) 0845 ($ Given - Provider: Tatyana Arreguin RN) 0831 ($ Given - Provider: Glenna Smith, ALANNAH) potassium - sodium phosphates (Phos-Nak) powder 1 packet (COMPLETED) 1 packet, Oral, 3 TIMES DAILY WITH MEALS, 3 doses, First dose on Sat08/19/24 at 1200, Last dose on Sat08/20/24 at 0800, Mix contents of packet in 6 to 8 ounces of water and drink, may taste better if cold Contains Phos 8 mmol, K+ 7 mEq, Na 7 mEq per packet 1454 ($ Given - Provider: Tatyana Arreguin RN)1838 ($ Given - Provider: Tatyana Arreguin RN) 0833 ($ Given - Provider: Glenna Smith, ALANNAH) potassium chloride 40 mEq in 270 mL bolus (COMPLETED) 40 mEq, at 67.5 mL/hr, Administer over 4 Hours, Intravenous, ONCE, 1 dose, On Sat08/19/24 at 1000 1326 ($ New Bag/Syringe - Provider: Tatyana Arreguin RN)1328 (Current Rate - Provider: Tatyana Arreguin RN)1709 (Current Rate - Provider: Tatyana Arreguin RN)1809 (Stopped - Provider: Tatyana Arreguin RN) senna (Senokot) tablet 8.6 mg 8.6 mg, Oral, DAILY, First dose on Sat08/17/24 at 0900, Until Discontinued 0919 (Held - Provider: Jana Faulkner RN - Reason: Refused-Patient) 0846 (Not Administered - Provider: Tatyana Arreguin RN - Reason: Refused-Patient) 0831 ($ Given - Provider: Glenna Smith, ALANNAH) sodium - potassium phosphates (K Phos Neutral) tablet 2 tablet (COMPLETED) 2 tablet, Oral, EVERY 4 HOURS, 2 doses, First dose on Sat08/18/24 at 0815, Last dose on Sat08/18/24 at 1200, Contains Phos 8 mmol, K+ 1.1 mEq, Na 13 mEq per tablet 0918 ($ Given - Provider: Jana Faulkner RN)1124 ($ Given - Provider: Jana Faulkner RN) sodium - potassium phosphates (K Phos Neutral) tablet 2 tablet (COMPLETED) 2 tablet, Oral, ONCE, 1 dose, On Sat08/20/24 at 1100, Contains Phos 8 mmol, K+ 1.1 mEq, Na 13 mEq per tablet 1046 ($ Given - Provider: Glenna Simth RN) sodium phosphate 30 mmol in 260 mL bolus (COMPLETED) 30 mmol, at 43.33 mL/hr, Administer over 6 Hours, Intravenous, ONCE, 1 dose, On Sat08/18/24 at 0930 1127 ($ New Bag/Syringe - Provider: Jana Faulkenr RN)1712 (Stopped - Provider: Jana Faulkner RN) traZODone (Desyrel) tablet 100 mg 100 mg, Oral, AT BEDTIME, First dose on Sat08/17/24 at 0045, Until Discontinued 2037 ($ Given - Provider: Carley Hensley RN) 2040 ($ Given - Provider: Oliva Morejon RN) PRN Medication Order 08/18/2024 08/19/2024 08/20/2024 0.9% NaCl injection 1-10 mL(Linked Group 1) 1-10 mL, Intracatheter, PRN, Other, peripheral line flush, Starting on Sat08/16/24 at 0525, Until Sat08/20/24 at 1327, Flush peripheral IV catheter with 1-10 mL of normal saline before and after medications and prn to clear blood from the line or to verify patency. albuterol-ipratropium (Duo-Neb) nebulizer solution 3 mL 3 mL, Inhalation, EVERY 4 HOURS PRN, Shortness of Breath, Wheezing, Starting on Sat08/16/24 at 0634, Until [place] 08/20/24 at 1327 cyclobenzaprine (Flexeril) tablet 10 mg 10 mg, Oral, 2 TIMES DAILY PRN, Muscle Spasms, Starting on Sat08/16/24 at 2132, Until [place] 08/20/24 at 1327, On hold since [place] 08/16/2024 at 2133 until manually unheld 1327 (Unheld by Provider - Provider: Generic, Auto Release) dextrose IV 12.5 g(Linked Group 2) 12.5 g, Intravenous, PRN, Other, Bedside Glucose less than 70 mg/dL -If NOT able to eat and/or NPO and with IV Access, Starting on Sat08/16/24 at 1854, Until [place] 08/20/24 at 1327, If NOT able to eat and/or NPO and with IV Access: For Bedside Glucose 54-69 mg/dL give 12.5 g Dextrose IV STAT For Bedside Glucose LESS than 54 mg/dl verify with a second Bedside Glucose (from a different site) and give 25 g Dextrose IV STAT Re-check and Re-treat blood glucose EVERY , 10-25 minutes until blood glucose GREATER than or equal to 80 mg/dl. NOTIFY PROVIDER OF HYPOGLYCEMIC EVENT. dextrose IV 25 g(Linked Group 2) 25 g, Intravenous, PRN, Other, Bedside Glucose less than 70 mg/dL -If NOT able to eat and/or NPO and with IV Access, Starting on Sat08/16/24 at 1854, Until [place] 08/20/24 at 1327, If NOT able to eat and/or NPO and with IV Access: For Bedside Glucose LESS than 54 mg/dl verify with a second Bedside Glucose (from a different site) and give 25 g Dextrose IV STAT Re-check and Re-treat blood glucose EVERY - 10-25 minutes until blood glucose GREATER than or equal to 80 mg/dl. - If repeat bedside glucose 54-79 give 12.5 g Dextrose IV STAT NOTIFY PROVIDER OF HYPOGLYCEMIC EVENT. glucagon (Glucagen) injection 1 mg(Linked Group 2) 1 mg, Subcutaneous, PRN, Bedside Glucose less than 70 mg/dL - If NOT able to eat and/or NPO and withOUT IV Access, Starting on [place] 08/16/24 at 1854, Until [place] 08/20/24 at 1327, If NOT able to eat and/or NPO and NO IV Access: For Bedside glucose 54-69 mg/dL ? - Give 1 mg subcutaneous For Bedside Glucose LESS than 54 mg/dl ? -?verify with a second bedside glucose (from a different site) ? -?Give 1 mg subcutaneous Re-check and Re-treat blood glucose EVERY 10-25 minutes until blood glucose GREATER than or equal to 80 mg/dl.? NOTIFY PROVIDER OF HYPOGLYCEMIC EVENT. Reconstitute vial with 1 mL of sterile water for injection for a final concentration of 1 mg/mL; shake vial gently; use immediately and discard unused portion glucose (Diabetic Use) oral gel Oral, PRN, Other, Bedside Glucose less than 70 mg/dL, Starting on 08/16/24 at 1854, Until [place] 08/20/24 at 1327, If able to take oral medications: For Bedside Glucose 54 - 69 mg/dL Give 15 grams of oral carbohydrates - 1 glucose gel (see MAR) If patient refuses glucose gel, then offer: - 4 ounces of fruit juice OR - 4 ounces non-diet soda OR - 8 ounces of fat-free milk For Bedside Glucose LESS than 54 mg/dL verify with a second Bedside Glucose (from a different site) - If pt is symptomatic, do not delay treatment - If accuracy of the POC glucose is in question, confirm glucose with a STAT laboratory test Give 30 grams of oral carbohydrates - 2 glucose gels (see MAR) If patient refuses glucose gel, then offer: - 8 ounces of fruit juice OR - 8 ounces non-diet soda OR - 16 ounces of fat-free milk Re-check and Re-treat blood glucose EVERY 10-25 minutes until blood glucose GREATER than or equal to 80 mg/dl. - If on recheck, bedside glucose 54-79 mg/dL - Give 15 grams of oral carbohydrates (see above for choices) NOTIFY PROVIDER OF HYPOGLYCEMIC EVENT. HYDROcodone-acetaminophen ([place]) 10-325 MG tablet 1 tablet 1 tablet, Oral, EVERY 6 HOURS PRN, Mild Pain, Moderate Pain, Starting on 08/16/24 at 2128, Until [place] 12/19/24 at 1327, Patient preference for lesser PRN pain meds may be honored when the patient requests a less strong medication, a lower dose, or a less intrusive route of administration when the lesser drug, dose and route have been ordered for the patient. This patient request must be documented in the MAR. If both oral and IV options are ordered for the same pain severity, give oral first unless patient cannot tolerate oral intake 0618 ($ Given - Provider: Carley Hensley RN)1711 ($ Given - Provider: Jana Faulkner RN)2331 ($ Given - Provider: Carley Hensley RN) 0619 ($ Given - Provider: Carley Hensley RN)1351 ($ Given - Provider: Tatyana Arreguin RN)2041 ($ Given - Provider: Oliva Morejon, RN) 0545 ($ Given - Provider: Oliva Morejon, RN) lidocaine (Lidoderm) 5 % patch 1 patch 1 patch, Administer over 12 Hours, DAILY PRN, For lower back pain, Starting on Sat08/17/24 at 1807, Until [place] 08/20/24 at 1327, Apply to lower back and remove patch after a max of 12 hours of application within a 24 hour period. 0929 ($ Applied - Provider: Jana Faulkner RN)2048 (Removed - Provider: Carley Hensley RN) morphine IR (MSIR) tablet 30 mg 30 mg, Oral, 3 TIMES DAILY PRN, Moderate Pain, Starting on 08/16/24 at 2128, Until [place] 08/20/24 at 1327, Patient preference for lesser PRN pain meds may be honored when the patient requests a less strong medication, a lower dose, or a less intrusive route of administration when the lesser drug, dose and route have been ordered for the patient. This patient request must be documented in the MAR. If both oral and IV options are ordered for the same pain severity, give oral first unless patient cannot tolerate oral intake, On hold since Sat08/16/2024 at 2133 until manually unheld 1327 (Unheld by Provider - Provider: Generic, Auto Release) Linked Groups Order Group 1: SALINE LOCK, INSERT AND MAINTAIN (CANCELED) Routine, CONTINUOUS, Starting on Sat08/16/24 at 0530, Until Specified, New collection, Task Completed: Yes And 0.9% NaCl injection 3 mLJump to med 3 mL, Intracatheter, EVERY 8 HOURS, First dose on [place] 08/16/24 at 0600, Until Discontinued, Flush peripheral IV catheter with 3 mL of normal saline every 8 hours. And 0.9% NaCl injection 1-10 mLJump to med 1-10 mL, Intracatheter, PRN, Other, peripheral line flush, Starting on [place] 08/16/24 at 0525, Until [facility] 08/20/24 at 1327, Flush peripheral IV catheter with 1-10 mL of normal saline before and after medications and prn to clear blood from the line or to verify patency. Group 2: dextrose IV 12.5 gJump to med 12.5 g, Intravenous, PRN, Other, Bedside Glucose less than 70 mg/dL -If NOT able to eat and/or NPO and with IV Access, Starting on [place] 08/16/24 at 1854, Until [facility] 08/20/24 at 1327, If NOT able to eat and/or NPO and with IV Access: For Bedside Glucose 54-69 mg/dL give 12.5 g Dextrose IV STAT For Bedside Glucose LESS than 54 mg/dl verify with a second Bedside Glucose (from a different site) and give 25 g Dextrose IV STAT Re-check and Re-treat blood glucose EVERY , 10-25 minutes until blood glucose GREATER than or equal to 80 mg/dl. NOTIFY PROVIDER OF HYPOGLYCEMIC EVENT. Or dextrose IV 25 gJump to med 25 g, Intravenous, PRN, Other, Bedside Glucose less than 70 mg/dL -If NOT able to eat and/or NPO and with IV Access, Starting on [place] 08/16/24 at 1854, Until [facility] 08/20/24 at 1327, If NOT able to eat and/or NPO and with IV Access: For Bedside Glucose LESS than 54 mg/dl verify with a second Bedside Glucose (from a different site) and give 25 g Dextrose IV STAT Re-check and Re-treat blood glucose EVERY - 10-25 minutes until blood glucose GREATER than or equal to 80 mg/dl. - If repeat bedside glucose 54-79 give 12.5 g Dextrose IV STAT NOTIFY PROVIDER OF HYPOGLYCEMIC EVENT. Or glucagon (Glucagen) injection 1 mgJump to med 1 mg, Subcutaneous, PRN, Bedside Glucose less than 70 mg/dL - If NOT able to eat and/or NPO and withOUT IV Access, Starting on 08/16/24 at 1854, Until [place] 08/20/24 at 1327, If NOT able to eat and/or NPO and NO IV Access: For Bedside glucose 54-69 mg/dL ? - Give 1 mg subcutaneous For Bedside Glucose LESS than 54 mg/dl ? -?verify with a second bedside glucose (from a different site) ? -?Give 1 mg subcutaneous Re-check and Re-treat blood glucose EVERY 10-25 minutes until blood glucose GREATER than or equal to 80 mg/dl.? NOTIFY PROVIDER OF HYPOGLYCEMIC EVENT. Reconstitute vial with 1 mL of sterile water for injection for a final concentration of 1 mg/mL; shake vial gently; use immediately and discard unused portion documented in this encounter Care Teams Manager Financial Systems Relationship Specialty Start Date End Date Mark Carmichael DO [address] [place] [id number] PCP - General Family Medicine 08/16/24 documented as of this encounter
--- OUTSIDE RECORDS SUMMARY | 2024-08-20 14:25 | XMS_ITS | Encounter Summary ---
Author Organization [facility] Address [facility] [place] [address] [place] [address] Care Team Providers Care Ssas Developer Name Role Phone Mark Carmichael DO Primary Care Provider [phone] Reason for Visit * Auth/Cert (Routine) Specialty Diagnoses / Procedures Referred By Amanda espinoza Referred To Contact Home Health Services Referral ID Status Reason Start Date Expiration Date Visits Re quested Visits Authorized [id number] 1 1 Encounter Details Date Type Department Care Team (Late st Contact Info) Description 09/03/2022 9:00 AM STATISTICAL PROGRAMMER Home Care Visit [facility] Home Care [facility] [address] [place] [address] Conchita Cazares, RN [address] [place] [address] SN OASIS DISCHARGE/ASSESSMENT Social History Tobacco Use [...] Assessment Author Status No 07/25/2022 11:00 PM STATISTICAL PROGRAMMER Acti ve * RETIRED Are you blind or do you have serious difficulty seeing, even when wearing glasses? Answer Date of Assessment Author Status No 07/25/2022 11:00 PM STATISTICAL PROGRAMMER Acti ve * Do you have serious difficulty walking or climbing stairs? 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 Results to [facility] Dr. Zoila Farias [phone] and Option Care: . Problem:Learning/Tea daniel Needs [...] 08/13/22. results to Dr. Austen Carmichael fax: [phone] Problem:Learning/Tea daniel Needs - IV Therapy Completed [...] support systems and coping. - Refer to COMMUNITY ORGANIZATION AIDE as needed. - Notify physician as needed. [...] Completed documented in this encounter Care Teams Ssas Developer Relationship Specialty Start Date End Date Mark Carmichael DO [address] [place] [address] PCP - General FAMILY PRACTICE 07/22/22 documented as of this encounter
--- OUTSIDE RECORDS SUMMARY | 2024-08-20 14:25 | XMS_ITS | Encounter Summary ---
Author Organization [facility] Address [address] [place] [address] Care Team Providers Care Packaging Sales Consultant Name Role Phone Mark Carmichael DO [...] Office Visit [facility] [address] [place] [address], [place] [address] Raymond Miller MD [facility] [place] [address] documented as of this encounter Visit Diagnoses Not on filedocumented in this encounter Care Teams Packaging Sales Consultant Relationship Specialty Start Date End Date Mark Carmichael DO [address] [place] [id number] PCP - General Family Medicine 08/16/24 documented as of this encounter
--- OUTSIDE RECORDS SUMMARY | 2024-08-20 14:25 | XMS_ITS | Encounter Summary ---
Author Organization [facility] Address [address] [place] [address]. [place] [address] [place] [address] Care Team Providers Care Database Security Administrator Name Role Phone Mark Carmichael DO Primary Care Provider [phone] Encounter Details Date Type Department Care Team (Late st Contact Info) Description 10/03/2022 Orders Only [facility] [address] [place] [address] Patti Pineda MD [address] [place] [address] Social History Tobacco Use Types [...] Coronavirus/COVID-19? No / Unsure 10/03/2022 3:02 PM STARCH DUMPER documented as of this encounter Functional Status * RETIRED Are you deaf or do you have serious difficulty hearing Answer Date of Assessment Author Status No 07/25/2022 11:00 PM STARCH DUMPER Acti ve * RETIRED Are you blind or do you have serious difficulty seeing, even when wearing glasses? Answer Date of Assessment Author Status No 07/25/2022 11:00 PM STARCH DUMPER Acti ve * Do you have serious difficulty walking or climbing stairs? Answer Date of Assessment Author Status No 07/25/2022 11:00 PM STARCH DUMPER Katie Vega ma, RN Active * Do you have difficulty dressing or bathing? Answer Date of Assessment Author Status No 07/25/2022 11:00 PM STARCH DUMPER Katie Vega ma, RN Active * Because [...] and discharge planning Lifestyle No Angela Dawkins, EMAIL PRODUCTION CONSULTANT documented as of this encounter Results * (ABNORMAL) CBC W/DIFF AUTOMATED (10/03/2022 3:30 PM STARCH DUMPER) WBC 5.87 4.00 - 10.80 x10'3/uL 10/03/2022 3:44 PM [facility] RBC 4.36(L) 4.50 - 6.10 x10'6/uL 10/03/2022 3:44 PM [facility] HGB 13.3 13.0 - 18.0 G/DL 10/03/2022 3:44 PM [facility] HCT 41.2 37.0 - 52.0 % 10/03/2022 3:44 PM [facility] MCV 94.5 78.0 - 100.0 FL 10/03/2022 3:44 PM [facility] MCH 30.5 27.0 - 31.0 PG 10/03/2022 3:44 PM [facility] MCHC 32.3(L) 33.0 - 36.0 G/DL 10/03/2022 3:44 PM [facility] RDW 12.6 11.5 - 14.5 % 10/03/2022 3:44 PM [facility] PLT 172 150 - 350 x10'3/uL 10/03/2022 3:44 PM [facility] MPV 10.6(H) 7.4 - 10.4 FL 10/03/2022 3:44 PM [facility] CBC COMMENT NORMAL REFERENCE RANGE NOT ESTABLISHED FOR THE PROPORTIONAL LEUKOCYTE DIFFERENTIAL. 10/03/2022 3:44 PM [facility] NEUTROPHILS % 63.6 % 10/03/2022 3:44 PM [facility] LYMPHOCYTES % 23.9 % 10/03/2022 3:44 PM [facility] MONOCYTES % 11.1 % 10/03/2022 3:44 PM [facility] EOSINOPHILS % 0.9 % 10/03/2022 3:44 PM [facility] BASOPHILS % 0.3 % 10/03/2022 3:44 PM [facility] IMMATURE GRANS % 0.2 % 10/03/19 3:44 PM [facility] NRBC 0.0 % 10/03/2022 3:44 PM [facility] ABS. NEUTROPHILS 3.74 1.60 - 8.30 x10'3/uL 10/03/2022 3:44 PM [facility] ABS. LYMPHOCYTES 1.40 0.80 - 4.70 x10'3/uL 10/03/2022 3:44 PM [facility] ABS. MONOCYTES 0.65 0.00 - 1.50 x10'3/uL 10/03/2022 3:44 PM [facility] ABS. EOSINOPHILS 0.05 0.00 - 0.40 x10'3/uL 10/03/2022 3:44 PM [facility] ABS. BASOPHILS 0.02 0.00 - 0.20 x10'3/uL 10/03/2022 3:44 PM STARCH DUMPER [facility] ABS. IMMATURE GRANULOCYTES 0.01 0.00 - 0.03 x10'3/uL 10/03/2022 3:44 PM STARCH DUMPER [facility] ABS. NUCLEATED RBC'S 0.00 0.00 x10'3/uL 10/03/2022 3:44 PM STARCH DUMPER [facility] 10/03/2022 3:30 PM STARCH DUMPER us Patti Pineda MD LABORATORY Final Result [facility] [address] [place] [address], documented in this encounter Visit Diagnoses Diagnosis Diarrhea- Primary Pneumonia Pneumonia, organism unspecified documented in this encounter Care Teams Database Security Administrator Relationship Specialty Start Date End Date Mark Carmichael DO [address] [place] [address] PCP - General FAMILY PRACTICE 07/22/22 documented as of this encounter
--- OUTSIDE RECORDS SUMMARY | 2024-08-20 14:25 | XMS_ITS | Encounter Summary ---
Author Organization [facility] Address [address] [place] [address]. [place] [address] [place] [address] Care Team Providers Care Panel Beater Name Role Phone Mark Carmichael DO Primary Care Provider [phone] Encounter Details Date Type Department Care Team (Late st Contact Info) Description 08/27/2022 Orders Only [facility] [address] [facility] [place] [address] Zoila Farias MD [address] [place] [address] Social History Tobacco Use Types Packs/Day Years [...] Coronavirus/COVID-19? No / Unsure 08/03/2022 2:21 AM CHAIN MACHINE OPERATOR documented as of this encounter Functional Status * RETIRED Are you deaf or do you have serious difficulty hearing Answer Date of Assessment Author Status No 07/25/2022 11:00 PM CHAIN MACHINE OPERATOR Acti ve * RETIRED Are you blind or do you have serious difficulty seeing, even when wearing glasses? Answer Date of Assessment Author Status No 07/25/2022 11:00 PM CHAIN MACHINE OPERATOR Acti ve * Do you [...] and discharge planning Lifestyle No Angela Dawkins, ELEVATOR MECHANIC APPRENTICE documented as of this encounter Results * (ABNORMAL) COMPREHENSIVE METABOLIC PANEL (08/27/2022 1:45 PM CHAIN MACHINE OPERATOR) [facility] SODIUM S/P/B 141 136 - 145 MMOL/L 08/27/2022 3:01 PM [facility] POTASSIUM S/P/B 3.1(L) 3.5 - 5.1 MMOL/L 08/27/2022 3:01 PM [facility] CHLORIDE S/P/B 104 98 - 107 MMOL/L 08/27/2022 3:01 PM [facility] CO2 32.8(H) 21.0 - 32.0 MMOL/L 08/27/2022 3:01 PM [facility] GLUCOSE 120(H) 70 - 99 MG/DL 08/27/2022 3:01 PM [facility] Comment: FASTING GLUCOSE 100 TO 125 MG/DL IS CONSISTENT WITH IMPAIRED FASTING GLUCOSE. FASTING GLUCOSE >125 MG/DL IS CONSISTENT WITH DIABETES. RANDOM GLUCOSE >200 MG/DL WITH HYPERGLYCEMIC SYMPTOMS IS CONSISTENT WITH DIABETES. PER ADA GUIDELINES BUN 5(L) 6 - 24 MG/DL 08/27/2022 3:01 PM [facility] CREATININE S/P/B 0.90 0.70 - 1.30 MG/DL 08/27/2022 3:01 PM [facility] CALCIUM S/P/B 8.8 8.4 - 10.5 MG/DL 08/27/2022 3:01 PM [facility] BILIRUBIN TOTAL S/P/B 0.3 0.2 - 1.0 MG/DL 08/27/2022 3:01 PM [facility] Comment: THIS ASSAY IS NOT RECOMMENDED FOR PATIENTS UNDERGOING TREATMENT WITH ELTROMBOPAG DUE TO THE POTENTIAL FOR FALSELY ELEVATED RESULTS. ALKALINE PHOSPHATASE S/P/B 63 45 - 115 U/L 08/27/2022 3:01 PM [facility] AST 22 15 - 37 U/L 08/27/2022 3:01 PM [facility] ALT 16 16 - 63 U/L 08/27/2022 3:01 PM [facility] TOTAL PROTEIN S/P/B 7.0 6.4 - 8.2 G/DL 08/27/2022 3:01 PM [facility] ALBUMIN S/P/B 2.9(L) 3.4 - 5.0 G/DL 08/27/2022 3:01 PM [facility] ANION GAP 4.2(L) 5.0 - 15.0 MMOL/L 08/27/2022 3:01 PM [facility] OSMOLALITY (CALC) 290 MOSM/KG 022 3:01 PM [facility] Comment:REFERENCE RANGE NOT ESTABLISHED GFR ESTIMATE >90 >89 ML/MIN/1. 73 M2 08/27/2022 3:01 PM [facility] GFR NOTES GFR REFERENCE S: 08/27/2022 3:01 PM [facility] Comment: THE ESTIMATED GFR IS [...] FAILURE: <15 ml/min/1.73 m2 08/27/2022 1:45 PM CHAIN MACHINE OPERATOR us Zoila Farias MD LABORATORY Final Result [facility] [address] [place] [address], * (ABNORMAL) CBC W/DIFF AUTOMATED (08/27/2022 1:45 PM CHAIN MACHINE OPERATOR) WBC 3.92(L) 4.00 - 10.80 x10'3/uL 08/27/2022 2:39 PM CHAIN MACHINE OPERATOR [facility] RBC 3.96(L) 4.50 - 6.10 x10'6/uL 08/27/2022 2:39 PM CHAIN MACHINE OPERATOR [facility] HGB 12.1(L) 13.0 - 18.0 G/DL 08/27/2022 2:39 PM CHAIN MACHINE OPERATOR [facility] HCT 39.7 37.0 - 52.0 % 08/27/2022 2:39 PM CHAIN MACHINE OPERATOR [facility] MCV 100.3(H) 78.0 - 100.0 FL 08/27/2022 2:39 PM CHAIN MACHINE OPERATOR [facility] MCH 30.6 27.0 - 31.0 PG 08/27/2022 2:39 PM CHAIN MACHINE OPERATOR [facility] MCHC 30.5(L) 33.0 - 36.0 G/DL 08/27/2022 2:39 PM CHAIN MACHINE OPERATOR [facility] RDW 14.2 11.5 - 14.5 % 08/27/2022 2:39 PM [facility] PLT 206 150 - 350 x10'3/uL 08/27/2022 2:39 PM [facility] MPV 10.1 7.4 - 10.4 FL 08/27/2022 2:39 PM [facility] CBC COMMENT NORMAL REFERENCE RANGE NOT ESTABLISHED FOR THE PROPORTIONAL LEUKOCYTE DIFFERENTIAL. 08/27/2022 2:39 PM CHAIN MACHINE OPERATOR [facility] NEUTROPHILS % 52.6 % 08/27/2022 2:39 PM [facility] LYMPHOCYTES % 34.4 % 08/27/2022 2:39 PM [facility] MONOCYTES % 9.4 % 08/27/2022 2:39 PM [facility] EOSINOPHILS % 2.3 % 08/27/2022 2:39 PM [facility] BASOPHILS % 1.0 % 08/27/2022 2:39 PM [facility] IMMATURE GRANS % 0.3 % 08/27/20 2:39 PM [facility] NRBC 0.0 % 08/27/2022 2:39 PM [facility] ABS. NEUTROPHILS 2.06 1.60 - 8.30 x10'3/uL 08/27/2022 2:39 PM [facility] ABS. LYMPHOCYTES 1.35 0.80 - 4.70 x10'3/uL 08/27/2022 2:39 PM [facility] ABS. MONOCYTES 0.37 0.00 - 1.50 x10'3/uL 08/27/2022 2:39 PM [facility] ABS. EOSINOPHILS 0.09 0.00 - 0.40 x10'3/uL 08/27/2022 2:39 PM [facility] ABS. BASOPHILS 0.04 0.00 - 0.20 x10'3/uL 08/27/2022 2:39 PM [facility] ABS. IMMATURE GRANULOCYTES 0.01 0.00 - 0.03 x10'3/uL 08/27/2022 2:39 PM [facility] ABS. 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
--- OUTSIDE RECORDS SUMMARY | 2024-08-20 14:25 | XMS_ITS | Encounter Summary ---
Author Organization [facility] Address [address] [place] [address]. [place] [address] [place] [address] Care Team Providers Care Pharmacists Name Role Phone Mark Carmichael DO Primary Care Provider [phone] Encounter Details Date Type Department Care Team (Late st Contact Info) Description 08/20/2022 Orders Only [facility] [address] [facility] [place] [address] Zoila Farias MD [address] [place] [address] Social History Tobacco Use Types Packs/Day Years [...] Coronavirus/COVID-19? No / Unsure 08/03/2022 2:21 AM INSPECTOR documented as of this encounter Functional Status * RETIRED Are you deaf or do you have serious difficulty hearing Answer Date of Assessment Author Status No 07/25/2022 11:00 PM INSPECTOR Acti ve * RETIRED Are you blind or do you have serious difficulty seeing, even when wearing glasses? Answer Date of Assessment Author Status No 07/25/2022 11:00 PM INSPECTOR Acti ve * Do you have serious difficulty walking or climbing stairs? Answer Date of Assessment Author Status No 07/25/2022 11:00 PM Katie Bueno ma, RN Active * Do you have difficulty dressing or bathing? Answer Date of Assessment Author Status No 07/25/2022 11:00 PM INSPECTOR Katie Vega ma, RN Active * Because [...] and discharge planning Lifestyle No Angela Dawkins, PERSONAL COUNSELOR documented as of this encounter Results * (ABNORMAL) COMPREHENSIVE METABOLIC PANEL (08/20/2022 11:10 AM [facility]) [facility] SODIUM S/P/B 141 136 - 145 MMOL/L 08/20/2022 12:47 PM [facility] POTASSIUM S/P/B 4.0 3.5 - 5.1 MMOL/L 08/20/2022 12:47 PM [facility] CHLORIDE S/P/B 104 98 - 107 MMOL/L 08/20/2022 12:47 PM [facility] CO2 29.8 21.0 - 32.0 MMOL/L 08/20/2022 12:47 PM [facility] GLUCOSE 84 70 - 99 MG/DL 08/20/2022 12:47 PM [facility] Comment: FASTING GLUCOSE 100 TO 125 MG/DL IS CONSISTENT WITH IMPAIRED FASTING GLUCOSE. FASTING GLUCOSE >125 MG/DL IS CONSISTENT WITH DIABETES. RANDOM GLUCOSE >200 MG/DL WITH HYPERGLYCEMIC SYMPTOMS IS CONSISTENT WITH DIABETES. PER ADA GUIDELINES BUN 9 6 - 24 MG/DL 08/20/2022 12:47 PM [facility] CREATININE S/P/B 0.82 0.70 - 1.30 MG/DL 08/20/2022 12:47 PM [facility] CALCIUM S/P/B 8.5 8.4 - 10.5 MG/DL 08/20/2022 12:47 PM [facility] BILIRUBIN TOTAL S/P/B 0.1(L) 0.2 - 1.0 MG/DL 08/20/2022 12:47 PM [facility] Comment: THIS ASSAY IS NOT RECOMMENDED FOR PATIENTS UNDERGOING TREATMENT WITH ELTROMBOPAG DUE TO THE POTENTIAL FOR FALSELY ELEVATED RESULTS. ALKALINE PHOSPHATASE S/P/B 68 45 - 115 U/L 08/20/2022 12:47 PM [facility] AST 26 15 - 37 U/L 08/20/2022 12:47 PM [facility] ALT 19 16 - 63 U/L 08/20/2022 12:47 PM [facility] TOTAL PROTEIN S/P/B 6.5 6.4 - 8.2 G/DL 08/20/2022 12:47 PM [facility] ALBUMIN S/P/B 2.6(L) 3.4 - 5.0 G/DL 08/20/2022 12:47 PM [facility] ANION GAP 7.2 5.0 - 15.0 MMOL/L 08/20/2022 12:47 PM [facility] OSMOLALITY (CALC) 290 MOSM/KG 022 12:47 PM [facility] Comment:REFERENCE RANGE NOT ESTABLISHED GFR ESTIMATE >90 >89 ML/MIN/1. 73 M2 08/20/2022 12:47 PM [facility] GFR NOTES GFR REFERENCE S: 08/20/2022 12:47 PM [facility] Comment: THE ESTIMATED GFR IS CALCULATED [...] <15 ml/min/1.73 m2 08/20/2022 11:1 0 AM INSPECTOR us Zoila Farias MD LABORATORY Final Result [facility] [address] [employer] [place] [address], * (ABNORMAL) CBC W/DIFF AUTOMATED (08/20/2022 11:10 AM INSPECTOR) WBC 4.8 4.0 - 10.8 x10'3/uL 08/20/2022 12:30 PM INSPECTOR [facility] RBC 3.39(L) 4.50 - 6.10 x10'6/uL 08/20/2022 12:30 PM INSPECTOR [facility] HGB 10.7(L) 13.0 - 18.0 G/DL 08/20/2022 12:30 PM INSPECTOR [facility] HCT 35.1(L) 37.0 - 52.0 % 08/20/2022 12:30 PM INSPECTOR [facility] MCV 103.5(H) 78.0 - 100.0 FL 08/20/2022 12:30 PM INSPECTOR [facility] MCH 31.6(H) 27.0 - 31.0 PG 08/20/2022 12:30 PM INSPECTOR [facility] MCHC 30.5(L) 33.0 - 36.0 G/DL 08/20/2022 12:30 PM INSPECTOR [facility] RDW 14.9(H) 11.5 - 14.5 % 08/20/2022 12:30 PM INSPECTOR [facility] PLT 324 150 - 350 x10'3/uL 08/20/2022 12:30 PM INSPECTOR [facility] MPV 9.9 7.4 - 10.4 FL 08/20/2022 12:30 PM INSPECTOR [facility] CBC COMMENT NORMAL REFERENCE RANGE NOT ESTABLISHED FOR THE PROPORTIONAL LEUKOCYTE DIFFERENTIAL. 08/20/2022 12:30 PM INSPECTOR [facility] NEUTROPHILS % 56.0 % 08/20/2022 12:30 PM INSPECTOR [facility] LYMPHOCYTES % 27.2 % 08/20/2022 12:30 PM INSPECTOR [facility] MONOCYTES % 12.7 % 08/20/2022 12:30 PM INSPECTOR [facility] EOSINOPHILS % 2.9 % 08/20/2022 12:30 PM INSPECTOR [facility] BASOPHILS % 0.8 % 08/20/2022 12:30 PM INSPECTOR [facility] IMMATURE GRANS % 0.4 % 08/20/20 12:30 PM INSPECTOR [facility] NRBC 0.0 % 08/20/2022 12:30 PM INSPECTOR [facility] ABS. NEUTROPHILS 2.69 1.60 - 8.30 x10'3/uL 08/20/2022 12:30 PM INSPECTOR [facility] ABS. LYMPHOCYTES 1.31 0.80 - 4.70 x10'3/uL 08/20/2022 12:30 PM INSPECTOR [facility] ABS. MONOCYTES 0.61 0.00 - 1.50 x10'3/uL 08/20/2022 12:30 PM INSPECTOR [facility] ABS. EOSINOPHILS 0.14 0.00 - 0.40 x10'3/uL 08/20/2022 12:30 PM INSPECTOR [facility] ABS. BASOPHILS 0.04 0.00 - 0.20 x10'3/uL 08/20/2022 12:30 PM INSPECTOR [facility] ABS. IMMATURE GRANULOCYTES 0.02 0.00 - 0.03 x10'3/uL 08/20/2022 12:30 PM INSPECTOR [facility] ABS. 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
--- OUTSIDE RECORDS SUMMARY | 2024-08-20 14:25 | XMS_ITS | Clinical Summary ---
Author Organization [facility] Address [facility]ly [facility] [place] [address] [place] [address] Care Team Providers Care Stave Log Ripsaw Operator Name Role Phone Mark Carmichael DO Primary Care Provider [phone] Allergies Active Allergy Reactions Criticality Noted Date [...] Problem Noted Date Diagnosed Date Respiratory failure ([facility]/HCC [facility] [place]) 07/25/2022 Immunizations Name Administration Dates Next Due [...] Comments Blood Pressure 162/92 08/27/2022 12:55 PM SEASONAL CLERK Pulse 64 08/27/2022 12:55 PM SEASONAL CLERK Temperature 36.2 ??C (97.2 ??F) 08/27/2022 1 2:55 PM SEASONAL CLERK Respiratory Rate 22 08/27/2022 12:5 5 PM SEASONAL CLERK Oxygen Saturation 97% 08/27/2022 12: 55 PM SEASONAL CLERK Inhaled Oxygen Concentration - - Weight 67.5 kg (148 lb 12.8 oz) 07/28/2022 3:26 AM SEASONAL CLERK Height 165.1 cm (5' 5 ) 07/25/2022 1:30 PM SEASONAL CLERK Body Mass Index 24.76 07/25/2022 1:30 PM SEASONAL CLERK Plan of Treatment Health Maintenance Due Date [...] and discharge planning Lifestyle No Angela Dawkins, PRODUCTION CONTROL COORDINATORenvironmental science technician [employer] Advance Directives * Full Code (Latest Code Status on File) Date Activated Date Inactivated Comments 08/09/2022 8:44 PM * Full Code Date Activated Date Inactivated Comments 07/25/2022 1:55 PM 08/08/2022 1:57 PM Care Teams Stave Log Ripsaw Operator Relationship Specialty Start Date End Date Mark Carmichael DO [address] [place] [address] PCP - General FAMILY PRACTICE 07/22/22
--- OUTSIDE RECORDS SUMMARY | 2024-08-20 14:26 | XMS_ITS | Encounter Summary ---
Author Organization [facility] Address [address] [place] [address]. [place] [address] [place] [address] Care Team Providers Care Research Assistant Member Name Role Phone Mark Carmichael DO Primary Care Provider Reason for Visit * Auth/Cert (Routine) Specialty Diagnoses / Procedures Referred By Amanda espinoza Referred To Contact Home Health Services Referral ID Status Reason Start Date Expiration Date Visits Re quested Visits Authorized [id number] 1 1 Encounter Details Date Type Department Care Team (Late st Contact Info) Description 08/09/2022 11:30 AM PHOTOCOMPOSING KEYBOARD OPERATOR Home Care Visit [facility] Home [facility] [address] [place] [address] Vidya Pierce RN SN OASIS START OF [...] Coronavirus/COVID-19? No / Unsure 08/03/2022 2:21 AM PHOTOCOMPOSING KEYBOARD OPERATOR documented as of this encounter Last Filed Vital Signs Vital Sign Reading Time Taken Comments Blood Pressure 118/76 08/09/2022 12:40 PM PHOTOCOMPOSING KEYBOARD OPERATOR Pulse 56 08/09/2022 12:34 PM PHOTOCOMPOSING KEYBOARD OPERATOR Temperature 36.1 ??C (96.9 ??F) 08/09/2022 12:[address] Respiratory Rate 18 08/09/2022 12:34 PM PHOTOCOMPOSING KEYBOARD OPERATOR Oxygen Saturation 96% 08/09/2022 12:34 PM PHOTOCOMPOSING KEYBOARD OPERATOR Inhaled Oxygen Concentration - - Weight - - Height - - Body Mass Index - - documented in this encounter Functional Status * RETIRED Are you deaf or do you have serious difficulty hearing Answer Date of Assessment Author Status No 07/25/2022 11:00 PM PHOTOCOMPOSING KEYBOARD OPERATOR Acti ve * RETIRED Are you blind or do you have serious difficulty seeing, even when wearing glasses? Answer Date of Assessment Author Status No 07/25/2022 11:00 PM PHOTOCOMPOSING KEYBOARD OPERATOR Acti ve * Do you have serious difficulty walking or climbing stairs? Answer Date of Assessment Author Status No 07/25/2022 11:00 PM PHOTOCOMPOSING KEYBOARD OPERATOR Katie Vega ma, RN Active * Do you have difficulty dressing or bathing? Answer Date of Assessment Author Status No 07/25/2022 11:00 PM PHOTOCOMPOSING KEYBOARD OPERATOR Katie Vega ma RN Active * Because of a physical, mental, or emotional condition, do you have difficulty doing errands alone such as visiting a doctor's office or shopping? Answer Date of Assessment Author Status No 07/25/2022 11:00 PM PHOTOCOMPOSING KEYBOARD OPERATOR Katie Vega ma RN Active documented [...] and discharge planning Lifestyle No Angela Dawkins, CONSTRUCTION PIT WORKER documented as of this encounter Visit Diagnoses Not on filedocumented in this encounter Home Health Visit - Care Plan Visit Details Visit Type -SN - OASIS Start of Care Discipline -Custodial Problems Problem Description Start Date [...] to [facility] Dr. Zoila Farias [phone] and [facility]: . Problem:Learning/T eaching Needs [...] 08/13/22. results to Dr[address] Austen Carmichael fax: [phone] Problem:Learning/T eaching Needs - IV Therapy Scheduled [...] support systems and coping. - Refer to PSYCHOLOGY ASSISTANT as needed. - Notify physician as needed. [...] Completed documented in this encounter Care Teams Research Assistant Member Relationship Specialty Start Date End Date Mark Carmichael DO [address] [place] [address] PCP - General FAMILY PRACTICE 07/22/22 documented as of this encounter
--- OUTSIDE RECORDS SUMMARY | 2024-08-20 14:26 | XMS_ITS | Encounter Summary ---
Author Organization [facility] Address [address] [place] [address]. [place] [address] [place] [address] Care Team Providers Care Appraisal Coordinator Name Role Phone Mark Carmichael DO Primary Care Provider Reason for Visit * Auth/Cert (Routine) Specialty Diagnoses / Procedures Referred By Amanda espinoza Referred To Contact Home Health Services Referral ID Status Reason Start Date Expiration Date Visits Re quested Visits Authorized [id number] 1 1 Encounter Details Date Type Department Care Team (Late st Contact Info) Description 08/13/2022 9:00 AM COMPONENT INSPECTOR Home Care Visit [facility] Home [facility] [address] [place] [address] Conchita Cazarse, RN [address] [place] [address] SN HOME VISIT Social History Tobacco Use [...] Coronavirus/COVID-19? No / Unsure 08/03/2022 2:21 AM COMPONENT INSPECTOR documented as of this encounter Last Filed Vital Signs Vital Sign Reading Time Taken Comments Blood Pressure 130/76 08/13/2022 9:51 AM COMPONENT INSPECTOR Pulse 88 08/13/2022 9:51 AM COMPONENT INSPECTOR Temperature 36.2 ??C (97.2 ??F) 08/13/2022 9:51 AM CS T Respiratory Rate 20 08/13/2022 9:51 AM COMPONENT INSPECTOR Oxygen Saturation 92% 08/13/2022 9:51 AM COMPONENT INSPECTOR Inhaled Oxygen Concentration - - Weight - - Height - - Body Mass Index - - documented in this encounter Functional Status * RETIRED Are you deaf or do you have serious difficulty hearing Answer Date of Assessment Author Status No 07/25/2022 11:00 PM COMPONENT INSPECTOR Acti ve * RETIRED Are you blind or do you have serious difficulty seeing, even when wearing glasses? Answer Date of Assessment Author Status No 07/25/2022 11:00 PM COMPONENT INSPECTOR Acti ve * Do you have serious difficulty walking or climbing stairs? Answer Date of Assessment Author Status No 07/25/2022 11:00 PM COMPONENT INSPECTOR Katie Vega ma, RN Active * Do you have difficulty dressing or bathing? Answer Date of Assessment Author Status No 07/25/2022 11:00 PM COMPONENT INSPECTOR Katie Vega ma RN Active * Because of a physical, mental, or emotional condition, do you have difficulty doing errands alone such as visiting a doctor's office or shopping? Answer Date of Assessment Author Status No 07/25/2022 11:00 PM COMPONENT INSPECTOR Katie Vega ma RN Active documented as of this encounter Mental Status * Because of a physical, mental, or emotional condition, do you have serious difficulty concentrating, remembering, or making decisions? Answer Entry Date Author Status No 07/25/2022 11:00 PM COMPONENT INSPECTOR Katie Vega ma RN Active documented in this encounter Plan of Treatment Not on file documented as of this encounter Goals Goal Patient Goal Type Associated Problems Recent Progress Patient-Stated? Author Family - family caregiver with be involved in care transitions and discharge planning Lifestyle Angela Pena, HEALTH ADVISOR documented as of this encounter Visit Diagnoses Not on filedocumented in this encounter Home Health Visit - Care Plan Visit Details Visit Type -SN - Home Visit Discipline -Nursing Home Problems Problem Description Start [...] to [facility] Dr. Zoila Farias [phone] and Option Care: . Problem:Learning/Tea daniel Needs - IV Therapy Goal:Patient/caregiv er demonstrates ability to safely perform and/or administer IV flush Completed Obtained from .right lorsal hand vein with 23 g butterfly needle, patient tolerated well, Covered with pressure dressing,. Specimen taken to [facility] lab IV Administration Description: Skilled [...] 08/13/22. results to Dr. Austen Carmichael fax: [phone] Problem:Learning/Tea daniel Needs - IV Therapy Completed [...] support systems and coping. - Refer to HAIR DESIGNER as needed. - Notify physician as needed. [...] Completed documented in this encounter Care Teams Appraisal Coordinator Relationship Specialty Start Date End Date Mark Carmichael DO [address] [place] [address] PCP - General FAMILY PRACTICE 07/22/22 documented as of this encounter
--- OUTSIDE RECORDS SUMMARY | 2024-08-20 14:26 | XMS_ITS | Encounter Summary ---
Author Organization [facility] Address [address] [place] [address]. [place] [address] [place] [address] Care Team Providers Care Serology Teacher Name Role Phone Mark Carmichael Primary Care Provider [phone] Encounter Details Date Type Department Care Team ([facility] st Contact Info) Description 08/09/2022 Plan of Care Documentation [facility] Home Care [facility] [address] [place] [address] Social History Tobacco Use Types Packs/Day Years [...] Coronavirus/COVID-19? No / Unsure 08/03/2022 2:21 AM INDUSTRIAL COFFEE GRINDER documented as of this encounter Functional Status * RETIRED Are you deaf or do you have serious difficulty hearing Answer Date of Assessment Author Status No 07/25/2022 11:00 PM INDUSTRIAL COFFEE GRINDER Acti ve * RETIRED Are you blind or do you have serious difficulty seeing, even when wearing glasses? Answer Date of Assessment Author Status No 07/25/2022 11:00 PM INDUSTRIAL COFFEE GRINDER Acti ve * Do you have serious [...] and discharge planning Lifestyle No Angela Dawkins, HAND LENS POLISHER documented as of this encounter Visit Diagnoses Not on filedocumented in this encounter Care Teams Serology Teacher Relationship Specialty Start Date End Date Mark Carmichael DO [address] [place] [address] PCP - General FAMILY PRACTICE 07/22/22 documented as of this encounter
--- OUTSIDE RECORDS SUMMARY | 2024-08-20 14:26 | XMS_ITS | Encounter Summary ---
Author Organization [facility] Address [facility]. [place], [place] [id number] [place] [address] Care Team Providers Care Or Manager Name Role Phone Joe Tam DO Primary Care Provider [phone] Reason for Referral * Procedure (Routine) - Closed Specialty Diagnoses / Procedures Referred By Contac t Referred To Contact Procedures Home O2 Adali Teague FNP [address] [facility] [address] [place] [address] Phone: tel: fax: Referral ID Status Reason Start Date Expiration Date Visits Re quested Visits Authorized [id number] Closed 08/06/2022 08/06/2023 1 1 YSIS SOCIAL WORKER * Procedure (Routine) - Closed Specialty Diagnoses / Procedures Referred By Contac t Referred To Contact Procedures Home O2 Lanre Moore MD Phone: tel: fax: Referral ID Status Reason Start Date Expiration Date Visits Re quested Visits Authorized [id number] Closed 08/05/2022 08/05/2023 1 1 YSIS SOCIAL WORKER * Imaging (Urgent) - Closed Specialty Diagnoses / Procedures Referred By Contac t Referred To Contact RADIOLOGY Procedures CT CHEST WO Patel Vinson MD Referral ID Status Reason Start Date Expiration Date Visits Re quested Visits Authorized [id number] Closed 08/04/2022 08/04/2023 1 1 YSIS SOCIAL WORKER * Imaging (Urgent) - Closed Specialty Diagnoses / Procedures Referred By Contac t Referred To Contact RADIOLOGY Procedures CT CHEST WO CON Araceli Hudson PA-C [address] [place] [address] Phone: tel: fax: Referral ID Status Reason Start Date Expiration Date Visits Re quested Visits Authorized [id number] Closed 07/31/2022 07/31/2023 1 1 YSIS SOCIAL WORKER * Imaging (Urgent) - Closed Specialty Diagnoses / Procedures Referred By Contac t Referred To Contact RADIOLOGY Procedures US ABD LIMITED Florencio Amaya MD Phone: tel: fax: Referral ID Status Reason Start Date Expiration Date Visits Re quested Visits Authorized [id number] Closed 07/28/2022 07/28/2023 1 1 YSIS SOCIAL WORKER * Imaging (Emergency) - Closed Specialty Diagnoses / Procedures Referred By Contac t Referred To Contact Procedures IR MIDLINE PLACEMENT GREATER 3YR IR CENT CATH LESS 5YR Tracy Yo MD Phone: tel: fax: Referral ID Status Reason Start Date Expiration Date Visits Re quested Visits Authorized [id number] Closed 07/25/2022 07/25/2023 1 1 YSIS SOCIAL WORKER * Imaging (Urgent) - Closed Specialty Diagnoses / Procedures Referred By Contac t Referred To Contact RADIOLOGY Procedures CT GD CHEST TUBE INSERT RT Florencio Amaya MD Phone: tel: fax: Referral ID Status Reason Start Date Expiration Date Visits Re quested Visits Authorized [id number] Closed 07/26/2022 07/26/2023 1 1 YSIS SOCIAL WORKER * Imaging (Emergency) - Closed Specialty Diagnoses / Procedures Referred By Contac t Referred To Contact RADIOLOGY Procedures CTA CHEST+ABD+PEL CTA CHEST+CTA ABDOMEN CTA CHEST+ABD+PEL Tracy Yo MD Phone: tel: fax: Referral ID Status Reason Start Date Expiration Date Visits Re quested Visits Authorized [id number] Closed 07/25/2022 07/25/2023 1 1 YSIS SOCIAL WORKER * Imaging (Emergency) - Closed Specialty Diagnoses / Procedures Referred By Contac t Referred To Contact RADIOLOGY Procedures USV VAST TEAM MIDLINE INSERT >5YR [facility] [address] [place] [address] Phone: tel: Referral ID Status Reason Start Date Expiration Date Visits Re quested Visits Authorized [id number] Closed 07/25/2022 07/25/2023 1 1 YSIS SOCIAL WORKER * Imaging (Urgent) - Closed Specialty Diagnoses / Procedures Referred By Contac t Referred To Contact RADIOLOGY Procedures USE ECHOCARDIOGRAM Tracy Yo MD Phone: tel: fax: Referral ID Status Reason Start Date Expiration Date Visits Re quested Visits Authorized [id number] Closed 07/25/2022 07/25/2023 1 1 YSIS SOCIAL WORKER * (Routine) - Closed Specialty Diagnoses / Procedures Referred By Contac t Referred To Contact Procedures OT eval and treat Tracy Yo MD Phone: tel: fax: Referral ID Status Reason Start Date Expiration Date Visits Re quested Visits Authorized [id number] Closed 07/25/2022 07/25/2023 1 1 YSIS SOCIAL WORKER * (Routine) - Closed Specialty Diagnoses / Procedures Referred By Contac t Referred To Contact Procedures PT eval and treat Tracy Yo MD Phone: tel: fax: Referral ID Status Reason Start Date Expiration Date Visits Re quested Visits Authorized [id number] Closed 07/25/2022 07/25/2023 1 1 YSIS SOCIAL WORKER Reason for Visit * Auth/Cert (Routine) Specialty Diagnoses / Procedures Referred By Contac t Referred To Contact Diagnoses Respiratory failure (CMS/HCC [facility]/HCC) Acute respiratory failure Respiratory failure ([facility]) Procedures NONE De Villasenor MD [address] [place] [address] Phone: tel: fax: Referral ID Status Reason Start Date Expiration Date Visits Re quested Visits Authorized [id number] 1 1 Encounter Details Date Type Department Care Team (Latest Contact Info) Description 07/25/2022 1:24 PM DIALYSIS SOCIAL WORKER - 08/08/2022 11:50 AM DIALYSIS SOCIAL WORKER Hospital Encounter [facility] [address] [place] [address] De Villasenor MD [address] [place] [address] Tracy Yo MD [address] [place] [address] Florencio Amaya MD [address] [place] [address] Lanre Winter MD [address] [place], [place] [id number] Discharge Disposition: Home with Home Health Care [...] Coronavirus/COVID-19? No / Unsure 08/03/2022 2:21 AM DIALYSIS SOCIAL WORKER documented as of this encounter Last Filed Vital Signs Vital Sign Reading Time Taken Comments Blood Pressure 128/70 08/08/2022 11:02 AM DIALYSIS SOCIAL WORKER Pulse 69 08/08/2022 11:02 AM DIALYSIS SOCIAL WORKER Temperature 37.1 ??C (98.8 ??F) 08/08/2022 1 1:02 AM DIALYSIS SOCIAL WORKER Respiratory Rate 13 08/08/2022 8:00 AM DIALYSIS SOCIAL WORKER Oxygen Saturation 96% 08/08/2022 11: 02 AM DIALYSIS SOCIAL WORKER Inhaled Oxygen Concentration - - Weight 67.5 kg (148 lb 12.8 oz) 07/28/2022 3:26 AM DIALYSIS SOCIAL WORKER Height 165.1 cm (5' 5 ) 07/25/2022 1:30 PM DIALYSIS SOCIAL WORKER Body Mass Index 24.76 07/25/2022 1:30 PM DIALYSIS SOCIAL WORKER documented in this encounter Functional Status * Question Answer Date of Assessment Author Status Do you have serious difficulty walking or climbing stairs? No 07/25/2022 11:00 PM DIALYSIS SOCIAL WORKER Noelle Vega RN Active * Question Answer Date of Assessment Author Status Do you have difficulty dressing or bathing? No 07/25/2022 11:00 PM DIALYSIS SOCIAL WORKER Nan Vega RN Active Because of a physical, mental, or emotional condition, do you have difficulty doing errands alone such as visiting a doctor's office or shopping? No 07/25/2022 11:00 PM Noelle Bueno RN Active * RETIRED Are you deaf or do you have serious difficulty hearing Answer Date of Assessment Author Status No 07/25/2022 11:00 PM DIALYSIS SOCIAL WORKER Acti ve * RETIRED Are you blind or do you have serious difficulty seeing, even when wearing glasses? Answer Date of Assessment Author Status No 07/25/2022 11:00 PM DIALYSIS SOCIAL WORKER Acti ve * Do you have serious [...] Physician Discharge Summary Patient ID: Ray Phillips [id number] 67-year-old 1955 Primary care physician:JOE TAM DO [...] please fax to [facility] at [phone] - Please follow-up with [facility] in 3 weeks, please call [phone] to schedule a follow-up apt - Risks of indwelling line/skilled nursing IV antibiotics discussed with patient (including C. [...] in stable condition Thank you for choosing [facility] -PLEASE CALL [phone] EXT [phone] IF QTS Code Status: Prior Procedure: Procedures [...] decubitus position on the CT table and Cranston protocol was observed to verify correct patient, [...] CT. The tract was dilated to 12 Somali. During dilation, there was temporary retraction of the wire resulting in slight kinking and difficulty advancing the tube. Access was again regained using theone-step sheath needle, followed again by CT confirmation of position, wire placement, and tract dilation. A 12-Somali pigtail drainage catheter with the locking stitch [...] Date: 07/28/2022 Echocardiography Report Pat.Name: RAY PHILLIPS.ID: [id number] .Date: 07/27/2022 : [id number] NON-STAFF PROVIDER EWDPROV EWDPROV Exam Time: 12:44:00 PM Study Type:ECHO WITH CARDIAC DOPPLER COMP Height: 165 cm Weight: 68 kg BSA: 1.75 m2 Age: 9 1955,67Y Sex: M BP: 138/68 HR: 70 bpm Sonogrphr: Avery Marie [facility] Pat. Stat.:Inpatient Room: 742 CPT - 4: 04960 Reason for Study:Pericardial effusion Procedures: 2D, M-mode, [...] Mass 2D Value 229 g LV Mass Slsfe2Y Value 131 g/m2 Right Ventricle Right Ventricle [...] Procedure: Midline venous catheter placement. Grafts/Implants: 4 Somali midlinevenous catheter Interventional Radiologist: Óscar Paper Carrier: ANSON Keating Anesthesia: Local - 1% Lidocaine [...] centrally. Peel-away sheath was placed. A 4 Somali single lumen midline, 20 cm. This was [...] Disposition: HOME WITH HOME HEALTH @DOCUMENTATION OF [facility] ENCOUNTER FOR HOME HEALTH I attest that a Ribz-zs-Otkw encounter with Ray Phillips was made on [...] are for medical reasons,or for attendance at jew events; absences from home for nonmedical reasons [...] WHEN ANTIBIOTICS COMPLETED Patti Pineda MD [address] [facility] [address] Follow up in 1 week(s) Joe Tam DO [address] [facility] [address] Follow up in 1 week(s) Zoila Farias MD [address] [facility] [address] Follow up in 2 week(s) Ross Blackburn MD [address] [facility] [address] Follow up in 1 month(s) Follow up labs neededWhile on IV antibiotics, obtain weekly labs - CBC and CMP, please fax to [facility] at [phone] Follow up instructions ABOVE Discharge time spent: 35 minutes Signed: LANRE WINTER MD 08/08/2022 2:16 PM YSIS SOCIAL WORKER documented in this encounter Discharge Instructions * Discharge Instructions* Raquel Wetzel MD - 08/07/2022 7:16 AM DIALYSIS SOCIAL WORKER ACTIVITY Your smaller incision will take about [...] the Cardiothoracic Surgery at any time at [phone] YSIS SOCIAL WORKER documented in this encounter Medications at Time [...] CSTSummary: D/C plans IDBR done with Dr Wintre [facility] to discuss POC/D/C plans. See notes below. 08/08/22924 Interdisciplinary Group Conference Team Members Present Physician;Case/Care management Barriers to Discharge Barriers Other (Comment) Other (Comment)follow up D/C to home with [facility] and [facility] for IV supplies. YSIS SOCIAL WORKER * Lanre Winter MD - 08/07/2022 2:04 [...] Procedure Component Value Units Date/Time CULTURE, ANAEROBIC [[id number]] Collected: 08/02/22837 Order Status: Completed Lab Status: Final result Updated: 08/07/22 0910 Specimen: TISSUE from OTHER (type in comments) Spec. Description TISSUE: RT DECORTICATION TISU Special Requests: NO SPECIAL REQUEST Culture Result: NO ANAEROBES ISOLATED CULTURE TB/AFB OTHER (TYPE IN COMMENTS) [[id number]] Collected: 08/02/22837 Order Status: Sent Lab Status: In process Updated: 08/02/22 1009 Specimen: TISSUE from OTHER (type in comments) CULTURE, FUNGUS [[id number]] Collected: 08/02/22837 Order Status: Sent Lab Status: In process Updated: 08/02/22 1010 Specimen: TISSUE from OTHER (type in comments) CULTURE, TISSUE W/GRAM STAIN [[id number]] Collected: 08/02/22837 Order Status: Completed Lab Status: Final result Updated: 08/07/22 1136 Specimen: TISSUE from OTHER (type in comments) Spec. Description TISSUE: RT DECORTICATION TISU Special Requests: NO SPECIAL REQUEST Gram Stain Result -- MODERATE NEUTROPHILS SEEN Gram Stain Result NO ORGANISMS SEEN Culture Result: NO GROWTH 5 DAYS SMEAR,FLUOR STAIN,ACID FAST [[id number]] Collected: 08/02/22 0838 Order Status: Completed Lab Status: Final result Updated: 08/05/221944 ACID FAST SMEAR RESULT SEE NOTE 08/05/2022 07:45 PM Comment: Test Result Flag Unit RefValue Acid Fast Smear For Mycobacterium SOURCE: LUNG, RIGHT, RT DECORTICATION TIS ACID FAST SMEAR FOR MYCOBACTERIUM FINAL Negative. Test Performed by: [place] [address] Power Plant Operator Apprentice: Brent Alcaraz M.D. Ph.D.; CLIA# [id number] CULTURE, FUNGUS [[id number]] Order Status: No result Lab Status: No result Specimen: BRONCHOALVEO LAV, RT LWR CULTURE TB/AFB OTHER (TYPE IN COMMENTS) [[id number]] Order Status: No result Lab Status: No result Specimen: BRONCHOALVEO LAV, RT LWR SMEAR,FLUOR STAIN,ACID FAST [[id number]] Order Status: No result Lab Status: No result Specimen: BRONCHOALVEO LAV, RT LWR CULTURE VIRAL RESPIRATORY RAPID [[id number]] Order Status: No result Lab Status: No result Specimen: BRONCHOALVEO LAV, RT LWR CULTURE RESPIRATORY W/ GRAM STAIN [[id number]] Order Status: No result Lab Status: No result Specimen: BRONCHIAL WASHING CULTURE, FUNGUS [[id number]] Order Status: No result Lab Status: No result Specimen: BRONCHIAL WASHING CULTURE TB/AFB OTHER (TYPE IN COMMENTS) [[id number]] Order Status: No result Lab Status: No result Specimen: BRONCHIAL WASHING SMEAR,FLUOR STAIN,ACID FAST [[id number]] Order Status: No result Lab Status: No result Specimen: BRONCHIAL WASHING CULTURE VIRAL RESPIRATORY RAPID [[id number]] Order Status: No result Lab Status: No result Specimen: BRONCHIAL WASHING CULTURE, QUANTITATIVE W/ GRAM STAIN [[id number]] Order Status: No result Lab Status: No result Specimen: BRONCHOALVEO LAV, RT LWR CULTURE, FUNGUS [[id number]] Collected: 07/30/22 1530 Order Status: No result Lab Status: In process Updated: 07/30/22 1701 CULTURE RESPIRATORY W/ GRAM STAIN [[id number]] Collected: 07/30/221529 Order Status: Completed Lab Status: Final result Updated: 08/03/22 1228 Specimen: SITE Spec. Description SITE: BRONCH WASH Special Requests: NO SPECIAL REQUEST Gram Stain Result -- MANY NEUTROPHILS SEEN Gram Stain Result NO ORGANISMS SEEN Culture Result: -- FEW TETE ALBICANS SMEAR,FLUOR STAIN,ACID FAST [[id number]] Collected: 07/30/221529 Order Status: Completed Lab Status: Final result Updated: 08/01/22 2318 ACID FAST SMEAR RESULT SEE NOTE 08/01/2022 11:18 PM Comment: Test Result Flag Unit RefValue Acid Fast Smear For Mycobacterium SOURCE: BRONCHIAL WASHING, BWASH/BAL MIX ACID FAST SMEAR FOR MYCOBACTERIUM FINAL Negative. Test Performed by: [place] [address] Power Plant Operator Apprentice: Brent Alcaraz M.D. Ph.D.; CLIA# [id number] CULTURE TB/AFB OTHER [[id number]] Collected: 07/30/221529 Order Status: No result Lab Status: In process Updated: 07/30/22 170 CULTURE, QUANTITATIVE W/ GRAM STAIN [[id number]] Collected: 07/30/221529 Order Status: Completed Lab Status: Final result Updated: 08/02/22 1457 Specimen: SITE Spec. Description SITE: BAL RLL Special Requests: NO SPECIAL REQUEST Gram Stain Result <10 NEUTROPHILS PER LPF Gram Stain Result <10 EPITHELIAL CELLS PER LPF Gram Stain Result -- RARE GRAM NEGATIVE RODS Culture Result: -- 500 CFU/ML YEAST , ID UPON REQUEST CULTURE, FUNGUS [[id number]] Collected: 07/30/221529 Order Status: Canceled Lab Status: No result SMEAR,FLUOR STAIN,ACID FAST [[id number]] Collected: 07/30/221529 Order Status: Canceled Lab Status: No result CULTURE TB/AFB OTHER [[id number]] Collected: 07/30/221529 Order Status: Canceled Lab Status: No result CULTURE CMV [[id number]] Collected: 07/30/221529 Order Status: Completed Lab Status: Final result Updated: 08/06/22 1738 CYTOMEGALOVIRUS CULTURE REPORT Comment: CMV Rapid Culture SOURCE : BAL RESULT Not Isolated Reference Range: Not Isolated Test Performed by [facility], [address] [place], [place] Adrián Balderas M.D., Ph.D., Director of Laboratories , CLIA [id number] SPECIMEN SOURCE BAL/BWASH MIX IN VTM 1 TO 1 RATIO, FRZ NEG 70 CULTURE HERPES [[id number]] Collected: 07/30/221529 Order Status: Completed Lab Status: Final result Updated: 08/03/22 1542 HERPES SIMPLEX VIRUS CULTURE REPORT Comment: Herpes Simplex Virus Culture SOURCE : BAL/BWASH MIX IN RESULT Not Isolated Reference Range: Not Isolated Test Performed by [facility], [address] [place], [place] Adrián Balderas M.D., Ph.D., Director of Laboratories , CLIA [id number] Specimen Type BAL/BWASH MIX IN VTM 1 TO 1 RATIO, FRZ NEG 70 CULTURE VIRAL RESPIRATORY RAPID [[id number]] Collected: 07/30/221529 Order Status: Completed Lab Status: Final result Updated: 08/05/22 1522 VIRAL RESP RAPID CULTURE W/RFX REPORT Comment: Respiratory Culture Screen SOURCE : BWASH/BAL MIX IN RESULT Negative for Influenza virus, types A and B, Parainfluenza viruses 1,2 # 3, Adenovirus, and Respiratory Syncytial virus. Reference range: Negative Rapid Respiratory Viruses Not indicated Test Performed by [facility], [address] [place], [place] Adrián Balderas M.D., Ph.D., Director of Laboratories , CLIA [id number] Specimen Type BWASH/BAL MIX IN VTM 1 TO 1 RATIO, FRZ NEG 70 CULTURE RESPIRATORY W/ GRAM STAIN [[id number]] Collected: 07/28/221424 Order Status: Completed Lab Status: [...] -- MODERATE PRESUMPTIVE TETE ALBICANS CULTURE, FUNGUS [[id number]] Collected: 07/28/221424 Order Status: Sent Lab Status: In process Updated: 07/31/22 133 Specimen: SPUTUM, EXPECTORATED CULTURE TB/AFB OTHER (TYPE IN COMMENTS) [[id number]] Collected: 07/28/221424 Order Status: Canceled Lab Status: No result Specimen: SPUTUM, EXPECTORATED SMEAR,FLUOR STAIN,ACID FAST [[id number]] Collected: 07/28/221424 Order Status: No result Lab Status: In process Updated: 07/28/22 161 HISTOPLASMA ANTIGEN [[id number]] Collected: 07/28/221423 Order Status: Sent Lab Status: No result Specimen: BLOOD HISTOPLASMA ANTIGEN [[id number]] Collected: 07/28/221423 Order Status: Canceled Lab Status: No result Specimen: BLOOD GLUCOSE, BODY FLUID [[id number]] Order Status: Canceled Lab Status: No result Specimen: PLEURAL FLUID PH BODY FLUID [[id number]] Order Status: Canceled Lab Status: No result Specimen: PLEURAL FLUID CULTURE, BODY FLUID W/ GRAM STAIN [[id number]] Order Status: Canceled Lab Status: No result Specimen: PLEURAL FLUID CULTURE, ANAEROBIC [[id number]] Order Status: Canceled Lab Status: No result Specimen: PLEURAL FLUID CULTURE, FUNGUS [[id number]] Order Status: Canceled Lab Status: No result Specimen: PLEURAL FLUID LDH BODY FLUID [[id number]] Collected: 07/27/22 1030 Order Status: Completed Lab Status: Final result Updated: 07/27/22 152 Specimen: PLEURAL FLUID FLUID LDH >4,000 UNITS/L Comment: REFERENCE RANGE NOT ESTABLISHED FOR THIS BODY FLUID. SOURCE (FLUID) PLEURAL FLUID CELL COUNT W/ DIFF BODY FLUID [[id number]] Collected: 07/27/221029 Order Status: Completed Lab Status: Final result Updated: 07/27/22 1545 Specimen: PLEURAL FLUID SOURCE (FLUID) PLEURAL FLUID FL WBC 144.450 x10'3/uL Comment: REFERENCE RANGE NOT ESTABLISHED FL RBC 0.090 x10'6/uL Comment: REFERENCE RANGE NOT ESTABLISHED DIFFERENTIAL MANUAL DIFFERENTIAL PERFORMED ON CONCENTRATED CYTOSPIN CELLS COUNTED 100 No COUNTED SEGS (FLUID) 97 % LYMPHS (FLUID) 3 % PROTEIN TOTAL FLUID [[id number]] Collected: 07/27/221029 Order Status: Completed Lab Status: Final result Updated: 07/27/22 152 Specimen: PLEURAL FLUID PROTEIN (FLUID) 3.5 G/DL Comment: REFERENCE RANGE NOT ESTABLISHED FOR THIS BODY FLUID. SOURCE (FLUID) PLEURAL FLUID CULTURE, BODY FLUID W/ GRAM STAIN [[id number]] Collected: 07/27/221029 Order Status: Canceled Lab Status: No result Specimen: PLEURAL FLUID CULTURE, ANAEROBIC [[id number]] Collected: 07/27/221029 Order Status: Canceled Lab Status: No result Specimen: PLEURAL FLUID CULTURE, BODY FLUID W/ GRAM STAIN [[id number]] (Susceptibility) Collected: 07/27/221029 Order Status: Completed Lab [...] Sensitive TRIMETH-SULFAMETH. Resistant VANCOMYCIN Sensitive CULTURE, ANAEROBIC [[id number]] (Susceptibility) Collected: 07/27/221029 Order Status: Completed Lab Status: Final result Updated: 08/01/22 0826 Specimen: SITE Spec. Description SITE: RT PLEURAL FLUID Special Requests: NO SPECIAL REQUEST Culture Result: -- FEW MICROAEROPHILIC STREPTOCOCCUS Susceptibility Microaerophilic streptococcus ARLEN (ETEST) CEFOTAXIME 0.023 Sensitive PENICILLIN G 0.008 Sensitive BLASTOMYCES AG MVISTA (TM), EIA [[id number]] Order Status: No result Lab Status: No result Specimen: BLOOD BLASTOMYCES AG MVISTA (TM), EIA [[id number]] Order Status: No result Lab Status: No result Specimen: URINE CORONAVIRUS (COVID 19) PCR - Asymptomatic patients, may be completed at physician discretion [[id number]] Collected: 07/25/222031 Order Status: Canceled Lab Status: No result Specimen: NASOPHARYNGEAL SWAB STREP PNEUMO AG URINE [[id number]] Collected: 07/25/222030 Order Status: Completed Lab Status: [...] Type URINE VOIDED MRSA PCR nares Screening [[id number]] Collected: 07/25/222030 Order Status: Canceled Lab Status: No result Specimen: NASAL CULTURE, BACTERIA, BLOOD [[id number]] Collected: 07/25/221416 Order Status: Completed Lab Status: Final result Updated: 07/30/222144 Specimen: BLOOD Spec. Description BLOOD Special Requests: NO SPECIAL REQUEST Culture Result: NO GROWTH 5 DAYS CULTURE, BACTERIA, BLOOD [[id number]] Collected: 07/25/221415 Order Status: Completed Lab Status: [...] up LANRE WINTER MD 2:04 PM 08/07/2022 YSIS SOCIAL WORKER * Angela Dawkins RN - 08/07/2022 10:15 AM CSTSummary: D/C plans IDBR done with Dr Winter [facility] to discuss POC/D/C plans. See notes below. [address] Winter about making pt Gen with tele status-Pt can downgrade to Gen with Tele status. Let Aissatou Borges RN 7th floor inspector know this info. 1330 Cost of IV meds: $100.55 per week. Shirley Gaffney spoke with pt about this and pt is agreeable with cost. 1530 Pt/ and RN Kia thought he was going home today. I spoke with Marcelo Watson, meds cannot be delivered till Zulema 08/09 and [facility] plans to see pt Zulema. Let Dr Winter, pt/, pt's ALANNAH Adam know this info. 08/07/22 1015 Interdisciplinary Group Conference Team Members Present Case/Care management;Physician Barriers to Discharge Barriers Not Medically ready Not Medically ready follow up Continue IMC status. On IV antibiotics through 08/30/22. CM spoke with pt/ about [facility] and [facility] about D/C plans possibly for Sat08/08/22. They chose [facility] for [facility] agency. Ref sent/called to Shirley at [facility] and Doc jorge to [facility] about referral. YSIS SOCIAL WORKER YSIS SOCIAL WORKER YSIS SOCIAL WORKER * Raquel Wetzel MD - 08/07/2022 7:17 [...] 3-10 mL, 3-10 mL, Intravenous, Q8H, JOSEPH [place], 5 mL at 08/06/22 1004 ??? normal [...] Ross Blackburn MD at 08/09/2022 8:49 AM DIALYSIS SOCIAL WORKER YSIS SOCIAL WORKER YSIS SOCIAL WORKER * Merary Langley RN - 08/07/2022 2:34 [...] Goal: Absence of venous thromboembolism Outcome: Progressing YSIS SOCIAL WORKER * Maggie Fong MD - 08/06/2022 3:24 PM CSTSummary: [facility] Progress note [facility] PROGRESS NOTE Attending Provider:Dr. Fong PCP: JOE TAM DO Reason for Consultation: Loculated pleural effusions, Pneumonia ASSESSMENT AND PLAN Ray Phillips is a 67-year-old male with medical history of chronic tobacco use who was transferred from [facility] near [place] for treatment resistant pneumonia and loculated pleural [...] please fax to [facility] at [phone] - Please follow-up with [facility] in 3 weeks, please call [phone] to schedule a follow-up apt - Risks of indwelling line/skilled nursing IV antibiotics discussed with patient (including C. diff) -Plan as above discussed with patient, all voiced questions/concerns addressed, voiced agreement and understanding with plan. Thank you for consulting [facility] Infectious Disease. Paulina Dale NP 08/06/22 [facility] ATTENDING I, MAGGIE FONG MD, performed an examination of the patient and discussed the management with the FLIGHT ATTENDANT RAMP. I reviewed the FLIGHT ATTENDANT RAMP's progress note and agree with the findings [...] Tracy Yo MD, 100 mg at 08/05/222051 YSIS SOCIAL WORKER YSIS SOCIAL WORKER YSIS SOCIAL WORKER * Ilana Dove, GARRICK - 08/06/2022 2:45 [...] Charge $ Home Oxygen Evaluation Charge Yes YSIS SOCIAL WORKER * Nimisha Meyer RD - 08/06/2022 2:28 PM CST CLINICAL DIETITIAN RESCREEN Patient is a 67-year-old male admitted secondary to Respiratory failure ([facility]) [J96.90]. Past Medical History: Diagnosis Date ??? [...] Start nutrition assessment NIMISHA MEYER RD, LDN YSIS SOCIAL WORKER * Lanre Winter MD - 08/06/2022 2:03 [...] Procedure Component Value Units Date/Time CULTURE, ANAEROBIC [[id number]] Collected: 08/02/22837 Order Status: Completed Lab Status: Preliminary result Updated: 08/03/22 1524 Specimen: TISSUE from OTHER (type in comments) Spec. Description TISSUE: RT DECORTICATION TISU Special Requests: NO SPECIAL REQUEST Culture Result: -- NO ANAEROBES ISOLATED TO DATE CULTURE TB/AFB OTHER (TYPE IN COMMENTS) [[id number]] Collected: 08/02/22837 Order Status: Sent Lab Status: In process Updated: 08/02/22 1009 Specimen: TISSUE from OTHER (type in comments) CULTURE, FUNGUS [[id number]] Collected: 08/02/22837 Order Status: Sent Lab Status: In process Updated: 08/02/22 1010 Specimen: TISSUE from OTHER (type in comments) CULTURE, TISSUE W/GRAM STAIN [[id number]] Collected: 08/02/22837 Order Status: Completed Lab Status: Preliminary result Updated: 08/06/22 1203 Specimen: TISSUE from OTHER (type in comments) Spec. Description TISSUE: RT DECORTICATION TISU Special Requests: NO SPECIAL REQUEST Gram Stain Result -- MODERATE NEUTROPHILS SEEN Gram Stain Result NO ORGANISMS SEEN Culture Result: NO GROWTH 4 DAYS SMEAR,FLUOR STAIN,ACID FAST [[id number]] Collected: 08/02/22837 Order Status: Completed Lab Status: Final result Updated: 08/05/221944 ACID FAST SMEAR RESULT SEE NOTE 08/05/2022 07:45 PM Comment: Test Result Flag Unit RefValue Acid Fast Smear For Mycobacterium SOURCE: LUNG, RIGHT, RT DECORTICATION TIS ACID FAST SMEAR FOR MYCOBACTERIUM FINAL Negative. Test Performed by: [address] [address] Power Plant Operator Apprentice: Brent Alcaraz M.D. Ph.D.; CLIA# [id number] CULTURE, FUNGUS [[id number]] Order Status: No result Lab Status: No result Specimen: BRONCHOALVEO LAV, RT LWR CULTURE TB/AFB OTHER (TYPE IN COMMENTS) [[id number]] Order Status: No result Lab Status: No result Specimen: BRONCHOALVEO LAV, RT LWR SMEAR,FLUOR STAIN,ACID FAST [[id number]] Order Status: No result Lab Status: No result Specimen: BRONCHOALVEO LAV, RT LWR CULTURE VIRAL RESPIRATORY RAPID [[id number]] Order Status: No result Lab Status: No result Specimen: BRONCHOALVEO LAV, RT LWR CULTURE RESPIRATORY W/ GRAM STAIN [[id number]] Order Status: No result Lab Status: No result Specimen: BRONCHIAL WASHING CULTURE, FUNGUS [[id number]] Order Status: No result Lab Status: No result Specimen: BRONCHIAL WASHING CULTURE TB/AFB OTHER (TYPE IN COMMENTS) [[id number]] Order Status: No result Lab Status: No result Specimen: BRONCHIAL WASHING SMEAR,FLUOR STAIN,ACID FAST [[id number]] Order Status: No result Lab Status: No result Specimen: BRONCHIAL WASHING CULTURE VIRAL RESPIRATORY RAPID [[id number]] Order Status: No result Lab Status: No result Specimen: BRONCHIAL WASHING CULTURE, QUANTITATIVE W/ GRAM STAIN [[id number]] Order Status: No result Lab Status: No result Specimen: BRONCHOALVEO LAV, RT LWR CULTURE, FUNGUS [[id number]] Collected: 07/30/22 153 Order Status: No result Lab Status: In process Updated: 07/30/22 1701 CULTURE RESPIRATORY W/ GRAM STAIN [[id number]] Collected: 07/30/22 153 Order Status: Completed Lab Status: Final result Updated: 08/03/22 1228 Specimen: SITE Spec. Description SITE: BRONCH WASH Special Requests: NO SPECIAL REQUEST Gram Stain Result -- MANY NEUTROPHILS SEEN Gram Stain Result NO ORGANISMS SEEN Culture Result: -- FEW TETE ALBICANS SMEAR,FLUOR STAIN,ACID FAST [[id number]] Collected: 07/30/22 1530 Order Status: Completed Lab Status: Final result Updated: 08/01/22 2318 ACID FAST SMEAR RESULT SEE NOTE 08/01/2022 11:18 PM Comment: Test Result Flag Unit RefValue Acid Fast Smear For Mycobacterium SOURCE: BRONCHIAL WASHING, BWASH/BAL MIX ACID FAST SMEAR FOR MYCOBACTERIUM FINAL Negative. Test Performed by: [address] [address] Power Plant Operator Apprentice: Brent Alcaraz M.D. Ph.D.; CLIA# [id number] CULTURE TB/AFB OTHER [[id number]] Collected: 07/30/221529 Order Status: No result Lab Status: In process Updated: 07/30/22 1704 CULTURE, QUANTITATIVE W/ GRAM STAIN [[id number]] Collected: 07/30/221529 Order Status: Completed Lab Status: Final result Updated: 08/02/22 1457 Specimen: SITE Spec. Description SITE: BAL RLL Special Requests: NO SPECIAL REQUEST Gram Stain Result <10 NEUTROPHILS PER LPF Gram Stain Result <10 EPITHELIAL CELLS PER LPF Gram Stain Result -- RARE GRAM NEGATIVE RODS Culture Result: -- 500 CFU/ML YEAST , ID UPON REQUEST CULTURE, FUNGUS [[id number]] Collected: 07/30/221529 Order Status: Canceled Lab Status: No result SMEAR,FLUOR STAIN,ACID FAST [[id number]] Collected: 07/30/221529 Order Status: Canceled Lab Status: No result CULTURE TB/AFB OTHER [[id number]] Collected: 07/30/221529 Order Status: Canceled Lab Status: No result CULTURE CMV [[id number]] Collected: 07/30/221529 Order Status: No result Lab Status: In process Updated: 07/31/22 1431 CULTURE HERPES [[id number]] Collected: 07/30/221529 Order Status: Completed Lab Status: Final result Updated: 08/03/22 1542 HERPES SIMPLEX VIRUS CULTURE REPORT Comment: Herpes Simplex Virus Culture SOURCE : BAL/BWASH MIX IN RESULT Not Isolated Reference Range: Not Isolated Test Performed by Javier Ben[facility]tez, [facility], [address] [place], [place] Adrián Balderas M.D., Ph.D., Director of Laboratories , CLIA [id number] Specimen Type BAL/BWASH MIX IN VTM 1 TO 1 RATIO, FRZ NEG 70 CULTURE VIRAL RESPIRATORY RAPID [[id number]] Collected: 07/30/22 1530 Order Status: Completed Lab Status: Final result Updated: 08/05/22 1522 VIRAL RESP RAPID CULTURE W/RFX REPORT Comment: Respiratory Culture Screen SOURCE : BWASH/BAL MIX IN RESULT Negative for Influenza virus, types A and B, Parainfluenza viruses 1,2 # 3, Adenovirus, and Respiratory Syncytial virus. Reference range: Negative Rapid Respiratory Viruses Not indicated Test Performed by [facility], [facility], [address] [place] [address] Adrián Balderas M.D., Ph.D., Director of Laboratories , CLIA [id number] Specimen Type BWASH/BAL MIX IN VTM 1 TO 1 RATIO, FRZ NEG 70 CULTURE RESPIRATORY W/ GRAM STAIN [[id number]] Collected: 07/28/221424 Order Status: Completed Lab Status: [...] -- MODERATE PRESUMPTIVE TETE ALBICANS CULTURE, FUNGUS [[id number]] Collected: 07/28/221424 Order Status: Sent Lab Status: In process Updated: 07/31/22 1336 Specimen: SPUTUM, EXPECTORATED CULTURE TB/AFB OTHER (TYPE IN COMMENTS) [[id number]] Collected: 07/28/221424 Order Status: Canceled Lab Status: No result Specimen: SPUTUM, EXPECTORATED SMEAR,FLUOR STAIN,ACID FAST [[id number]] Collected: 07/28/221424 Order Status: No result Lab Status: In process Updated: 07/28/22 1612 HISTOPLASMA ANTIGEN [[id number]] Collected: 07/28/221423 Order Status: Sent Lab Status: No result Specimen: BLOOD HISTOPLASMA ANTIGEN [[id number]] Collected: 07/28/221423 Order Status: Canceled Lab Status: No result Specimen: BLOOD GLUCOSE, BODY FLUID [[id number]] Order Status: Canceled Lab Status: No result Specimen: PLEURAL FLUID PH BODY FLUID [[id number]] Order Status: Canceled Lab Status: No result Specimen: PLEURAL FLUID CULTURE, BODY FLUID W/ GRAM STAIN [[id number]] Order Status: Canceled Lab Status: No result Specimen: PLEURAL FLUID CULTURE, ANAEROBIC [[id number]] Order Status: Canceled Lab Status: No result Specimen: PLEURAL FLUID CULTURE, FUNGUS [[id number]] Order Status: Canceled Lab Status: No result Specimen: PLEURAL FLUID LDH BODY FLUID [[id number]] Collected: 07/27/221029 Order Status: Completed Lab Status: Final result Updated: 07/27/221521 Specimen: PLEURAL FLUID FLUID LDH >4,000 UNITS/L Comment: REFERENCE RANGE NOT ESTABLISHED FOR THIS BODY FLUID. SOURCE (FLUID) PLEURAL FLUID CELL COUNT W/ DIFF BODY FLUID [[id number]] Collected: 07/27/221029 Order Status: Completed Lab Status: Final result Updated: 07/27/22 154 Specimen: PLEURAL FLUID SOURCE (FLUID) PLEURAL FLUID FL WBC 144.450 x10'3/uL Comment: REFERENCE RANGE NOT ESTABLISHED FL RBC 0.090 x10'6/uL Comment: REFERENCE RANGE NOT ESTABLISHED DIFFERENTIAL MANUAL DIFFERENTIAL PERFORMED ON CONCENTRATED CYTOSPIN CELLS COUNTED 100 No COUNTED SEGS (FLUID) 97 % LYMPHS (FLUID) 3 % PROTEIN TOTAL FLUID [[id number]] Collected: 07/27/221029 Order Status: Completed Lab Status: Final result Updated: 07/27/22 152 Specimen: PLEURAL FLUID PROTEIN (FLUID) 3.5 G/DL Comment: REFERENCE RANGE NOT ESTABLISHED FOR THIS BODY FLUID. SOURCE (FLUID) PLEURAL FLUID CULTURE, BODY FLUID W/ GRAM STAIN [[id number]] Collected: 07/27/221029 Order Status: Canceled Lab Status: No result Specimen: PLEURAL FLUID CULTURE, ANAEROBIC [[id number]] Collected: 07/27/221029 Order Status: Canceled Lab Status: No result Specimen: PLEURAL FLUID CULTURE, BODY FLUID W/ GRAM STAIN [[id number]] (Susceptibility) Collected: 07/27/22 1030 Order Status: Completed [...] Sensitive TRIMETH-SULFAMETH. Resistant VANCOMYCIN Sensitive CULTURE, ANAEROBIC [[id number]] (Susceptibility) Collected: 07/27/22 103 Order Status: Completed Lab Status: Final result Updated: 08/01/22 08 Specimen: SITE Spec. Description SITE: RT PLEURAL FLUID Special Requests: NO SPECIAL REQUEST Culture Result: -- FEW MICROAEROPHILIC STREPTOCOCCUS Susceptibility Microaerophilic streptococcus ARLEN (ETEST) CEFOTAXIME 0.023 Sensitive PENICILLIN G 0.008 Sensitive BLASTOMYCES AG MVISTA (TM), EIA [[id number]] Order Status: No result Lab Status: No result Specimen: BLOOD BLASTOMYCES AG MVISTA (TM), EIA [[id number]] Order Status: No result Lab Status: No result Specimen: URINE CORONAVIRUS (COVID 19) PCR - Asymptomatic patients, may be completed at physician discretion [[id number]] Collected: 07/25/222031 Order Status: Canceled Lab Status: No result Specimen: NASOPHARYNGEAL SWAB STREP PNEUMO AG URINE [[id number]] Collected: 07/25/222030 Order Status: Completed Lab Status: [...] Type URINE VOIDED MRSA PCR nares Screening [[id number]] Collected: 07/25/222030 Order Status: Canceled Lab Status: No result Specimen: NASAL CULTURE, BACTERIA, BLOOD [[id number]] Collected: 07/25/22 1417 Order Status: Completed Lab Status: Final result Updated: 07/30/222144 Specimen: BLOOD Spec. Description BLOOD Special Requests: NO SPECIAL REQUEST Culture Result: NO GROWTH 5 DAYS CULTURE, BACTERIA, BLOOD [[id number]] Collected: 07/25/22 1416 Order Status: Completed Lab [...] with the following history as recorded in [facility]: Problem List Items Addressed This Visit [...] ID LANRE WINTER MD 2:03 PM 08/06/2022 YSIS SOCIAL WORKER * Adali Henry, DIRECTOR OF SPORTS MEDICINE - 08/06/2022 11:37 AM CST [facility]ULMON[facility]??PROGRESS??NOTE [...] - Can follow with Dr. Pineda in [facility] after discharge ([phone]). Dr. Pineda will be in [place] 08/08 and 08/22. Patient will call clinic and see which days have an opening. - ID following for antibiotic management. ?? Thank you for the consult. We will sign off. Call back with questions or concerns. Adali Henry, DIRECTOR OF SPORTS MEDICINE 08/06/2022 SUBJECTIVE Patient doing well. Denies shortness [...] the radiograph exam from yesterday. Ordered By: EDVNI POLLACK Interpreted By: Antonio Hill MD, 08/05/2022 [...] Patti Pineda MD at 08/06/2022 6:25 PM DIALYSIS SOCIAL WORKER YSIS SOCIAL WORKER YSIS SOCIAL WORKER YSIS SOCIAL WORKER Associated attestation - Patti Pineda MD - 08/06/2022 6:25 PM DIALYSIS SOCIAL WORKER Seen by SUPERVISOR FISH PROCESSING Has COPD, 50-pk year history smoking who [...] assistance. Maria Antonia Quiñones PharmD Phone number: [phone] 08/06/2022 10:45 AM YSIS SOCIAL WORKER * Suzi Irby RN - 08/06/2022 10:24 AM CSTSummary: IDR 08/06/22 1003 Interdisciplinary Group Information Next Conference Date 08/07/22 Interdisciplinary Group Conference Team Members Present Physician;Case/Care management;Nursing (Dr. Winter-[facility]) Barriers to Discharge Barriers Not Medically ready Not Medically ready follow up planned d/c chest tube, waiting on ID final recs, home O2 eval, keep IMC YSIS SOCIAL WORKER * Ross Blackburn MD - 08/06/2022 9:40 AM CST In bathroom cleaning up. No leak seen. Small output. Maybe a small effusion. Plan to remove chest tube. YSIS SOCIAL WORKER * Anisa B Drainer, PERIODONTAL ASSISTANT - 08/06/2022 8:44 AM CST OT Treatment Discharge Recommendation: home with assistance Activity Recommendation for wind turbine technician: Per nursing discretion, OT signing off. 08/06/22822 Therapy Visit OT Received On 08/06/22 Reason for admission Update: Pt had VATS with R decorication on 08/02 with R chest tube placement (CT to suction). Discussed with Ana MOYA who okayed junior copywriter proceed with POC. Pt is a 67 [...] lives with in a 1 with no PARNAY. Pt has a walk in shower with shower chair, and gbs. Pt has a tall toilet with sink closeby. Pt has a 2ww, and cane but was notusing at home. Pt reports independence MANAGER STERILE PROCESSING with ADLs, IADLS, and was driving. Pt [...] Name: Ray Phillips Primary Language of learner: Malagasy Patient was educated on precautions exercises transfers ADLs balance bed mobility equipment therapy plan safety energy conservation adaptive skills. Education was completed one to one this date. Preference of learning new concepts one to one Barriers to education this date were none. Response to education this date verbalized understanding. YSIS SOCIAL WORKER * Maria Antonia Quiñones, PharmD - 08/06/2022 [...] Consult per Dr. Srinath Quiñones, PharmD Phone: [phone] 08/06/2022 8:22 AM YSIS SOCIAL WORKER * Lanre Winter MD - 08/05/2022 2:41 [...] Procedure Component Value Units Date/Time CULTURE, ANAEROBIC [[id number]] Collected: 08/02/22837 Order Status: Completed Lab Status: Preliminary result Updated: 08/03/22 1524 Specimen: TISSUE from OTHER (type in comments) Spec. Description TISSUE: RT DECORTICATION TISU Special Requests: NO SPECIAL REQUEST Culture Result: -- NO ANAEROBES ISOLATED TO DATE CULTURE TB/AFB OTHER (TYPE IN COMMENTS) [[id number]] Collected: 08/02/22837 Order Status: Sent Lab Status: In process Updated: 08/02/22 1009 Specimen: TISSUE from OTHER (type in comments) CULTURE, FUNGUS [[id number]] Collected: 08/02/22837 Order Status: Sent Lab Status: In process Updated: 08/02/22 1010 Specimen: TISSUE from OTHER (type in comments) CULTURE, TISSUE W/GRAM STAIN [[id number]] Collected: 08/02/22837 Order Status: Completed Lab Status: Preliminary result Updated: 08/05/22 1202 Specimen: TISSUE from OTHER (type in comments) Spec. Description TISSUE: RT DECORTICATION TISU Special Requests: NO SPECIAL REQUEST Gram Stain Result -- MODERATE NEUTROPHILS SEEN Gram Stain Result NO ORGANISMS SEEN Culture Result: NO GROWTH 3 DAYS SMEAR,FLUOR STAIN,ACID FAST [[id number]] Collected: 08/02/22837 Order Status: No result Lab Status: In process Updated: 08/02/22 1012 CULTURE, FUNGUS [[id number]] Order Status: No result Lab Status: No result Specimen: BRONCHOALVEO LAV, RT LWR CULTURE TB/AFB OTHER (TYPE IN COMMENTS) [[id number]] Order Status: No result Lab Status: No result Specimen: BRONCHOALVEO LAV, RT LWR SMEAR,FLUOR STAIN,ACID FAST [[id number]] Order Status: No result Lab Status: No result Specimen: BRONCHOALVEO LAV, RT LWR CULTURE VIRAL RESPIRATORY RAPID [[id number]] Order Status: No result Lab Status: No result Specimen: BRONCHOALVEO LAV, RT LWR CULTURE RESPIRATORY W/ GRAM STAIN [[id number]] Order Status: No result Lab Status: No result Specimen: BRONCHIAL WASHING CULTURE, FUNGUS [[id number]] Order Status: No result Lab Status: No result Specimen: BRONCHIAL WASHING CULTURE TB/AFB OTHER (TYPE IN COMMENTS) [[id number]] Order Status: No result Lab Status: No result Specimen: BRONCHIAL WASHING SMEAR,FLUOR STAIN,ACID FAST [[id number]] Order Status: No result Lab Status: No result Specimen: BRONCHIAL WASHING CULTURE VIRAL RESPIRATORY RAPID [[id number]] Order Status: No result Lab Status: No result Specimen: BRONCHIAL WASHING CULTURE, QUANTITATIVE W/ GRAM STAIN [[id number]] Order Status: No result Lab Status: No result Specimen: BRONCHOALVEO LAV, RT LWR CULTURE, FUNGUS [[id number]] Collected: 07/30/22 1530 Order Status: No result Lab Status: In process Updated: 07/30/22 1701 CULTURE RESPIRATORY W/ GRAM STAIN [[id number]] Collected: 07/30/22 153 Order Status: Completed Lab Status: Final result Updated: 08/03/22 1228 Specimen: SITE Spec. Description SITE: BRONCH WASH Special Requests: NO SPECIAL REQUEST Gram Stain Result -- MANY NEUTROPHILS SEEN Gram Stain Result NO ORGANISMS SEEN Culture Result: -- FEW TETE ALBICANS SMEAR,FLUOR STAIN,ACID FAST [[id number]] Collected: 07/30/221529 Order Status: Completed Lab Status: Final result Updated: 08/01/22 2318 ACID FAST SMEAR RESULT SEE NOTE 08/01/2022 11:18 PM Comment: Test Result Flag Unit RefValue Acid Fast Smear For Mycobacterium SOURCE: BRONCHIAL WASHING, BWASH/BAL MIX ACID FAST SMEAR FOR MYCOBACTERIUM FINAL Negative. Test Performed by: [place] [address] Power Plant Operator Apprentice: Brent Alcaraz M.D. Ph.D.; CLIA# [id number] CULTURE TB/AFB OTHER [[id number]] Collected: 07/30/221529 Order Status: No result Lab Status: In process Updated: 07/30/22 1704 CULTURE, QUANTITATIVE W/ GRAM STAIN [[id number]] Collected: 07/30/221529 Order Status: Completed Lab Status: Final result Updated: 08/02/22 1457 Specimen: SITE Spec. Description SITE: BAL RLL Special Requests: NO SPECIAL REQUEST Gram Stain Result <10 NEUTROPHILS PER LPF Gram Stain Result <10 EPITHELIAL CELLS PER LPF Gram Stain Result -- RARE GRAM NEGATIVE RODS Culture Result: -- 500 CFU/ML YEAST , ID UPON REQUEST CULTURE, FUNGUS [[id number]] Collected: 07/30/221529 Order Status: Canceled Lab Status: No result SMEAR,FLUOR STAIN,ACID FAST [[id number]] Collected: 07/30/221529 Order Status: Canceled Lab Status: No result CULTURE TB/AFB OTHER [[id number]] Collected: 07/30/221529 Order Status: Canceled Lab Status: No result CULTURE CMV [[id number]] Collected: 07/30/221529 Order Status: No result Lab Status: In process Updated: 07/31/22 1431 CULTURE HERPES [[id number]] Collected: 07/30/22 153 Order Status: Completed Lab Status: Final result Updated: 08/03/22 1542 HERPES SIMPLEX VIRUS CULTURE REPORT Comment: Herpes Simplex Virus Culture SOURCE : BAL/BWASH MIX IN RESULT Not Isolated Reference Range: Not Isolated Test Performed by [facility], [facility], [address] [place], [place] Adrián Balderas M.D., Ph.D., Director of Laboratories , [facility] [id number] Specimen Type BAL/BWASH MIX IN VTM 1 TO 1 RATIO, FRZ NEG 70 CULTURE VIRAL RESPIRATORY RAPID [[id number]] Collected: 07/30/22 153 Order Status: No result Lab Status: In process Updated: 07/31/22 143 CULTURE RESPIRATORY W/ GRAM STAIN [[id number]] Collected: 07/28/221424 Order Status: Completed Lab Status: [...] -- MODERATE PRESUMPTIVE TETE ALBICANS CULTURE, FUNGUS [[id number]] Collected: 07/28/22 142 Order Status: Sent Lab Status: In process Updated: 07/31/22 1336 Specimen: SPUTUM, EXPECTORATED CULTURE TB/AFB OTHER (TYPE IN COMMENTS) [[id number]] Collected: 07/28/221424 Order Status: Canceled Lab Status: No result Specimen: SPUTUM, EXPECTORATED SMEAR,FLUOR STAIN,ACID FAST [[id number]] Collected: 07/28/22 142 Order Status: No result Lab Status: In process Updated: 07/28/22 1612 HISTOPLASMA ANTIGEN [[id number]] Collected: 07/28/22 142 Order Status: Sent Lab Status: No result Specimen: BLOOD HISTOPLASMA ANTIGEN [[id number]] Collected: 07/28/22 1424 Order Status: Canceled Lab Status: No result Specimen: BLOOD GLUCOSE, BODY FLUID [[id number]] Order Status: Canceled Lab Status: No result Specimen: PLEURAL FLUID PH BODY FLUID [[id number]] Order Status: Canceled Lab Status: No result Specimen: PLEURAL FLUID CULTURE, BODY FLUID W/ GRAM STAIN [[id number]] Order Status: Canceled Lab Status: No result Specimen: PLEURAL FLUID CULTURE, ANAEROBIC [[id number]] Order Status: Canceled Lab Status: No result Specimen: PLEURAL FLUID CULTURE, FUNGUS [[id number]] Order Status: Canceled Lab Status: No result Specimen: PLEURAL FLUID LDH BODY FLUID [[id number]] Collected: 07/27/221029 Order Status: Completed Lab Status: Final result Updated: 07/27/221521 Specimen: PLEURAL FLUID FLUID LDH >4,000 UNITS/L Comment: REFERENCE RANGE NOT ESTABLISHED FOR THIS BODY FLUID. SOURCE (FLUID) PLEURAL FLUID CELL COUNT W/ DIFF BODY FLUID [[id number]] Collected: 07/27/221029 Order Status: Completed Lab Status: Final result Updated: 07/27/22 154 Specimen: PLEURAL FLUID SOURCE (FLUID) PLEURAL FLUID FL WBC 144.450 x10'3/uL Comment: REFERENCE RANGE NOT ESTABLISHED FL RBC 0.090 x10'6/uL Comment: REFERENCE RANGE NOT ESTABLISHED DIFFERENTIAL MANUAL DIFFERENTIAL PERFORMED ON CONCENTRATED CYTOSPIN CELLS COUNTED 100 No COUNTED SEGS (FLUID) 97 % LYMPHS (FLUID) 3 % PROTEIN TOTAL FLUID [[id number]] Collected: 07/27/221029 Order Status: Completed Lab Status: Final result Updated: 07/27/22 152 Specimen: PLEURAL FLUID PROTEIN (FLUID) 3.5 G/DL Comment: REFERENCE RANGE NOT ESTABLISHED FOR THIS BODY FLUID. SOURCE (FLUID) PLEURAL FLUID CULTURE, BODY FLUID W/ GRAM STAIN [[id number]] Collected: 07/27/221029 Order Status: Canceled Lab Status: No result Specimen: PLEURAL FLUID CULTURE, ANAEROBIC [[id number]] Collected: 07/27/221029 Order Status: Canceled Lab Status: No result Specimen: PLEURAL FLUID CULTURE, BODY FLUID W/ GRAM STAIN [[id number]] (Susceptibility) Collected: 07/27/221029 Order Status: Completed Lab [...] Sensitive TRIMETH-SULFAMETH. Resistant VANCOMYCIN Sensitive CULTURE, ANAEROBIC [[id number]] (Susceptibility) Collected: 07/27/22 1030 Order Status: Completed Lab Status: Final result Updated: 08/01/22 0826 Specimen: SITE Spec. Description SITE: RT PLEURAL FLUID Special Requests: NO SPECIAL REQUEST Culture Result: -- FEW MICROAEROPHILIC STREPTOCOCCUS Susceptibility Microaerophilic streptococcus ARLEN (ETEST) CEFOTAXIME 0.023 Sensitive PENICILLIN G 0.008 Sensitive BLASTOMYCES AG MVISTA (TM), EIA [[id number]] Order Status: No result Lab Status: No result Specimen: BLOOD BLASTOMYCES AG MVISTA (TM), EIA [[id number]] Order Status: No result Lab Status: No result Specimen: URINE CORONAVIRUS (COVID 19) PCR - Asymptomatic patients, may be completed at physician discretion [[id number]] Collected: 07/25/222031 Order Status: Sent Lab Status: No result Specimen: NASOPHARYNGEAL SWAB STREP PNEUMO AG URINE [[id number]] Collected: 07/25/222030 Order Status: Completed Lab Status: [...] Type URINE VOIDED MRSA PCR nares Screening [[id number]] Collected: 07/25/222030 Order Status: Canceled Lab Status: No result Specimen: NASAL CULTURE, BACTERIA, BLOOD [[id number]] Collected: 07/25/221416 Order Status: Completed Lab Status: Final result Updated: 07/30/222144 Specimen: BLOOD Spec. Description BLOOD Special Requests: NO SPECIAL REQUEST Culture Result: NO GROWTH 5 DAYS CULTURE, BACTERIA, BLOOD [[id number]] Collected: 07/25/22 141 Order Status: Completed Lab [...] with the following history as recorded in [facility]: Problem List Items Addressed This Visit [...] tomorrow LANRE WINTER MD 2:41 PM 08/05/2022 YSIS SOCIAL WORKER * Karla De Yash, MANAGER STERILE PROCESSING - 08/05/2022 12:19 PM CST PT Treatment Discharge Recommendation: home with assistance for IADL's Activity Recommendation for wind turbine technician: defer to nursing-PT signing off 08/05/22 0850 Therapy Visit Ordering Provider Tracy Yo MD Subjective Upon entering room 742, patient was in supine and agreeable to therapy. Reason for admission Update: Pt had VATS with R decorication on 08/02 with R chest tube placement (CT to suction). Discussed with Ana MOYA who okayed junior copywriter proceed with POC. Pt is a 67 [...] was notusing at home. Pt reports independence MANAGER STERILE PROCESSING with ADLs, IADLS, and was driving. Pt [...] this date as patient demonstrates mod I [id number]. Wayne has met all acute PT goals [...] Name: Ray Phillips Primary Language of learner: Malagasy Patient was educated on transfers balance therapy plan gait safety. Education was completed one to one verbal hands-on demonstration this date. Preference of learning new concepts one to one verbal hands-on demonstration Barriers to education this date were none. Response to education this date verbalized understanding. YSIS SOCIAL WORKER * Patel Kelsey MD - 08/05/2022 11:31 [...] discharge. Can follow with Dr. Pineda in [facility] after discharge ([phone]). - ID following for antibiotics management. ?? [...] Katie Paula MD at 08/05/2022 1:52 PM DIALYSIS SOCIAL WORKER YSIS SOCIAL WORKER YSIS SOCIAL WORKER Associated attestation - Katie Paula MD - 08/05/2022 1:52 PM DIALYSIS SOCIAL WORKER [facility] Pulmonary and Critical Care Medicine Attending [...] Brent Lemos MD at 08/05/2022 11:35 AM DIALYSIS SOCIAL WORKER YSIS SOCIAL WORKER YSIS SOCIAL WORKER * Ann Mcdonnell, PharmD - 08/05/2022 10:42 [...] Consult per Dr. Srinath MCDONNELL [facility] Phone: [phone] 08/05/2022 10:42 AM YSIS SOCIAL WORKER * Lanre Winter MD - 08/04/2022 3:33 [...] Procedure Component Value Units Date/Time CULTURE, ANAEROBIC [[id number]] Collected: 08/02/22837 Order Status: Completed Lab Status: Preliminary result Updated: 08/03/22 1524 Specimen: TISSUE from OTHER (type in comments) Spec. Description TISSUE: RT DECORTICATION TISU Special Requests: NO SPECIAL REQUEST Culture Result: -- NO ANAEROBES ISOLATED TO DATE CULTURE TB/AFB OTHER (TYPE IN COMMENTS) [[id number]] Collected: 08/02/22837 Order Status: Sent Lab Status: In process Updated: 08/02/22 1009 Specimen: TISSUE from OTHER (type in comments) CULTURE, FUNGUS [[id number]] Collected: 08/02/22837 Order Status: Sent Lab Status: In process Updated: 08/02/22 1010 Specimen: TISSUE from OTHER (type in comments) CULTURE, TISSUE W/GRAM STAIN [[id number]] Collected: 08/02/22837 Order Status: Completed Lab Status: Preliminary result Updated: 08/03/22 1525 Specimen: TISSUE from OTHER (type in comments) Spec. Description TISSUE: RT DECORTICATION TISU Special Requests: NO SPECIAL REQUEST Gram Stain Result -- MODERATE NEUTROPHILS SEEN Gram Stain Result NO ORGANISMS SEEN Culture Result: NO GROWTH 1 DAY SMEAR,FLUOR STAIN,ACID FAST [[id number]] Collected: 08/02/22837 Order Status: No result Lab Status: In process Updated: 08/02/22 1012 CULTURE, FUNGUS [[id number]] Order Status: No result Lab Status: No result Specimen: BRONCHOALVEO LAV, RT LWR CULTURE TB/AFB OTHER (TYPE IN COMMENTS) [[id number]] Order Status: No result Lab Status: No result Specimen: BRONCHOALVEO LAV, RT LWR SMEAR,FLUOR STAIN,ACID FAST [[id number]] Order Status: No result Lab Status: No result Specimen: BRONCHOALVEO LAV, RT LWR CULTURE VIRAL RESPIRATORY RAPID [[id number]] Order Status: No result Lab Status: No result Specimen: BRONCHOALVEO LAV, RT LWR CULTURE RESPIRATORY W/ GRAM STAIN [[id number]] Order Status: No result Lab Status: No result Specimen: BRONCHIAL WASHING CULTURE, FUNGUS [[id number]] Order Status: No result Lab Status: No result Specimen: BRONCHIAL WASHING CULTURE TB/AFB OTHER (TYPE IN COMMENTS) [[id number]] Order Status: No result Lab Status: No result Specimen: BRONCHIAL WASHING SMEAR,FLUOR STAIN,ACID FAST [[id number]] Order Status: No result Lab Status: No result Specimen: BRONCHIAL WASHING CULTURE VIRAL RESPIRATORY RAPID [[id number]] Order Status: No result Lab Status: No result Specimen: BRONCHIAL WASHING CULTURE, QUANTITATIVE W/ GRAM STAIN [[id number]] Order Status: No result Lab Status: No result Specimen: BRONCHOALVEO LAV, RT LWR CULTURE, FUNGUS [[id number]] Collected: 07/30/221529 Order Status: No result Lab Status: In process Updated: 07/30/22 1701 CULTURE RESPIRATORY W/ GRAM STAIN [[id number]] Collected: 07/30/221529 Order Status: Completed Lab Status: Final result Updated: 08/03/22 1228 Specimen: SITE Spec. Description SITE: BRONCH WASH Special Requests: NO SPECIAL REQUEST Gram Stain Result -- MANY NEUTROPHILS SEEN Gram Stain Result NO ORGANISMS SEEN Culture Result: -- FEW TETE ALBICANS SMEAR,FLUOR STAIN,ACID FAST [[id number]] Collected: 07/30/221529 Order Status: Completed Lab Status: Final result Updated: 08/01/22 2318 ACID FAST SMEAR RESULT SEE NOTE 08/01/2022 11:18 PM Comment: Test Result Flag Unit RefValue Acid Fast Smear For Mycobacterium SOURCE: BRONCHIAL WASHING, BWASH/BAL MIX ACID FAST SMEAR FOR MYCOBACTERIUM FINAL Negative. Test Performed by: [address] [address] Power Plant Operator Apprentice: Brent Alcaraz M.D. Ph.D.; CLIA# [id number] CULTURE TB/AFB OTHER [[id number]] Collected: 07/30/221529 Order Status: No result Lab Status: In process Updated: 07/30/22 1704 CULTURE, QUANTITATIVE W/ GRAM STAIN [[id number]] Collected: 07/30/221529 Order Status: Completed Lab Status: Final result Updated: 08/02/22 1457 Specimen: SITE Spec. Description SITE: BAL RLL Special Requests: NO SPECIAL REQUEST Gram Stain Result <10 NEUTROPHILS PER LPF Gram Stain Result <10 EPITHELIAL CELLS PER LPF Gram Stain Result -- RARE GRAM NEGATIVE RODS Culture Result: -- 500 CFU/ML YEAST , ID UPON REQUEST CULTURE, FUNGUS [[id number]] Collected: 07/30/221529 Order Status: Canceled Lab Status: No result SMEAR,FLUOR STAIN,ACID FAST [[id number]] Collected: 07/30/221529 Order Status: Canceled Lab Status: No result CULTURE TB/AFB OTHER [[id number]] Collected: 07/30/221529 Order Status: Canceled Lab Status: No result CULTURE CMV [[id number]] Collected: 07/30/221529 Order Status: No result Lab Status: In process Updated: 07/31/22 1431 CULTURE HERPES [[id number]] Collected: 07/30/221529 Order Status: Completed Lab Status: Final result Updated: 08/03/22 1542 HERPES SIMPLEX VIRUS CULTURE REPORT Comment: Herpes Simplex Virus Culture SOURCE : BAL/BWASH MIX IN RESULT Not Isolated Reference Range: Not Isolated Test Performed by [facility], [facility], [address] [place] [address] Adrián Balderas M.D., Ph.D., Director of Laboratories , CLIA [id number] Specimen Type BAL/BWASH MIX IN VTM 1 TO 1 RATIO, FRZ NEG 70 CULTURE VIRAL RESPIRATORY RAPID [[id number]] Collected: 07/30/221529 Order Status: No result Lab Status: In process Updated: 07/31/22 1435 CULTURE RESPIRATORY W/ GRAM STAIN [[id number]] Collected: 07/28/221424 Order Status: Completed Lab Status: [...] -- MODERATE PRESUMPTIVE TETE ALBICANS CULTURE, FUNGUS [[id number]] Collected: 07/28/221424 Order Status: Sent Lab Status: In process Updated: 07/31/22 133 Specimen: SPUTUM, EXPECTORATED CULTURE TB/AFB OTHER (TYPE IN COMMENTS) [[id number]] Collected: 07/28/221424 Order Status: Sent Lab Status: No result Specimen: SPUTUM, EXPECTORATED SMEAR,FLUOR STAIN,ACID FAST [[id number]] Collected: 07/28/221424 Order Status: No result Lab Status: In process Updated: 07/28/22 1612 HISTOPLASMA ANTIGEN [[id number]] Collected: 07/28/221423 Order Status: Sent Lab Status: No result Specimen: BLOOD HISTOPLASMA ANTIGEN [[id number]] Collected: 07/28/221423 Order Status: Canceled Lab Status: No result Specimen: BLOOD GLUCOSE, BODY FLUID [[id number]] Order Status: Canceled Lab Status: No result Specimen: PLEURAL FLUID PH BODY FLUID [[id number]] Order Status: Canceled Lab Status: No result Specimen: PLEURAL FLUID CULTURE, BODY FLUID W/ GRAM STAIN [[id number]] Order Status: Canceled Lab Status: No result Specimen: PLEURAL FLUID CULTURE, ANAEROBIC [[id number]] Order Status: Canceled Lab Status: No result Specimen: PLEURAL FLUID CULTURE, FUNGUS [[id number]] Order Status: Canceled Lab Status: No result Specimen: PLEURAL FLUID LDH BODY FLUID [[id number]] Collected: 07/27/22 1030 Order Status: Completed Lab Status: Final result Updated: 07/27/22 152 Specimen: PLEURAL FLUID FLUID LDH >4,000 UNITS/L Comment: REFERENCE RANGE NOT ESTABLISHED FOR THIS BODY FLUID. SOURCE (FLUID) PLEURAL FLUID CELL COUNT W/ DIFF BODY FLUID [[id number]] Collected: 07/27/221029 Order Status: Completed Lab Status: Final result Updated: 07/27/22 1545 Specimen: PLEURAL FLUID SOURCE (FLUID) PLEURAL FLUID FL WBC 144.450 x10'3/uL Comment: REFERENCE RANGE NOT ESTABLISHED FL RBC 0.090 x10'6/uL Comment: REFERENCE RANGE NOT ESTABLISHED DIFFERENTIAL MANUAL DIFFERENTIAL PERFORMED ON CONCENTRATED CYTOSPIN CELLS COUNTED 100 No COUNTED SEGS (FLUID) 97 % LYMPHS (FLUID) 3 % PROTEIN TOTAL FLUID [[id number]] Collected: 07/27/221029 Order Status: Completed Lab Status: Final result Updated: 07/27/22 1522 Specimen: PLEURAL FLUID PROTEIN (FLUID) 3.5 G/DL Comment: REFERENCE RANGE NOT ESTABLISHED FOR THIS BODY FLUID. SOURCE (FLUID) PLEURAL FLUID CULTURE, BODY FLUID W/ GRAM STAIN [[id number]] Collected: 07/27/221029 Order Status: Canceled Lab Status: No result Specimen: PLEURAL FLUID CULTURE, ANAEROBIC [[id number]] Collected: 07/27/221029 Order Status: Canceled Lab Status: No result Specimen: PLEURAL FLUID CULTURE, BODY FLUID W/ GRAM STAIN [[id number]] (Susceptibility) Collected: 07/27/221029 Order Status: Completed Lab [...] Sensitive TRIMETH-SULFAMETH. Resistant VANCOMYCIN Sensitive CULTURE, ANAEROBIC [[id number]] (Susceptibility) Collected: 07/27/221029 Order Status: Completed Lab Status: Final result Updated: 08/01/22 0826 Specimen: SITE Spec. Description SITE: RT PLEURAL FLUID Special Requests: NO SPECIAL REQUEST Culture Result: -- FEW MICROAEROPHILIC STREPTOCOCCUS Susceptibility Microaerophilic streptococcus ARLEN (ETEST) CEFOTAXIME 0.023 Sensitive PENICILLIN G 0.008 Sensitive BLASTOMYCES AG MVISTA (TM), EIA [[id number]] Order Status: No result Lab Status: No result Specimen: BLOOD BLASTOMYCES AG MVISTA (TM), EIA [[id number]] Order Status: No result Lab Status: No result Specimen: URINE CORONAVIRUS (COVID 19) PCR - Asymptomatic patients, may be completed at physician discretion [[id number]] Collected: 07/25/222031 Order Status: Sent Lab Status: No result Specimen: NASOPHARYNGEAL SWAB STREP PNEUMO AG URINE [[id number]] Collected: 07/25/222030 Order Status: Completed Lab Status: [...] Type URINE VOIDED MRSA PCR nares Screening [[id number]] Collected: 07/25/222030 Order Status: Canceled Lab Status: No result Specimen: NASAL CULTURE, BACTERIA, BLOOD [[id number]] Collected: 07/25/221416 Order Status: Completed Lab Status: Final result Updated: 07/30/222144 Specimen: BLOOD Spec. Description BLOOD Special Requests: NO SPECIAL REQUEST Culture Result: NO GROWTH 5 DAYS CULTURE, BACTERIA, BLOOD [[id number]] Collected: 07/25/221415 Order Status: Completed Lab Status: [...] [facility] the [facility] Problem List Items Addressed This Visit [...] improvement LANRE WINTER MD 3:33 PM 08/04/2022 YSIS SOCIAL WORKER * Ann Mcdonnell, PharmD - 08/04/2022 3:28 [...] Consult per Dr. Srinath MCDONNELL, PharmD Phone: [phone] 08/04/2022 3:28 PM YSIS SOCIAL WORKER * Patel Kelsey MD - 08/04/2022 11:37 [...] Sputum cultures with presumptive tete albicans ?? [facility] Pulmonology Plan/ Recommendations: -??S/p Chest [...] effusion. 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 08/03/22 1418 Therapy Visit OT Received On 08/03/22 Reason for admission Update: Pt had VATS with R decorication on 08/02 with R chest tube placement (CT to suction). Discussed with Ana MOYA who okayed junior copywriter proceed with POC. Pt is a 67 [...] was notusing at home. Pt reports independence MANAGER STERILE PROCESSING with ADLs, IADLS, and was driving. Pt [...] Pt stated he walked that way prior, junior copywriter discussed safety concerns. Other (Comment) Pt performed [...] Name: Ray Phillips Primary Language of learner: Malagasy Patient was educated on transfers ADLs balance therapy plan safety energy conservation. Education was completed one to one verbal this date. Preference of learning new concepts one to one verbal Barriers to education this date were fatigue. Response to education this date verbalized understanding verbalized recall asks questions demos with verbal cues needs reinforcement needs follow up needs assistance. YSIS SOCIAL WORKER * Lanre Winter MD - 08/03/2022 3:18 [...] Procedure Component Value Units Date/Time CULTURE, ANAEROBIC [[id number]] Collected: 08/02/22837 Order Status: Sent Lab Status: In process Updated: 08/02/22 100 Specimen: TISSUE from OTHER (type in comments) CULTURE TB/AFB OTHER (TYPE IN COMMENTS) [[id number]] Collected: 08/02/22837 Order Status: Sent Lab Status: In process Updated: 08/02/22 1009 Specimen: TISSUE from OTHER (type in comments) CULTURE, FUNGUS [[id number]] Collected: 08/02/22837 Order Status: Sent Lab Status: In process Updated: 08/02/22 1010 Specimen: TISSUE from OTHER (type in comments) CULTURE, TISSUE W/GRAM STAIN [[id number]] Collected: 08/02/22837 Order Status: Completed Lab Status: Preliminary result Updated: 08/02/22 1602 Specimen: TISSUE from OTHER (type in comments) Spec. Description TISSUE: RT DECORTICATION TISU Special Requests: NO SPECIAL REQUEST Follow-up of empyema hydropneumothorax result -- MODERATE NEUTROPHILS SEEN Gram Stain Result NO ORGANISMS SEEN Culture Result: PENDING SMEAR,FLUOR STAIN,ACID FAST [[id number]] Collected: 08/02/22837 Order Status: No result Lab Status: In process Updated: 08/02/22 1012 CULTURE, FUNGUS [[id number]] Order Status: No result Lab Status: No result Specimen: BRONCHOALVEO LAV, RT LWR CULTURE TB/AFB OTHER (TYPE IN COMMENTS) [[id number]] Order Status: No result Lab Status: No result Specimen: BRONCHOALVEO LAV, RT LWR SMEAR,FLUOR STAIN,ACID FAST [[id number]] Order Status: No result Lab Status: No result Specimen: BRONCHOALVEO LAV, RT LWR CULTURE VIRAL RESPIRATORY RAPID [[id number]] Order Status: No result Lab Status: No result Specimen: BRONCHOALVEO LAV, RT LWR CULTURE RESPIRATORY W/ GRAM STAIN [[id number]] Order Status: No result Lab Status: No result Specimen: BRONCHIAL WASHING CULTURE, FUNGUS [[id number]] Order Status: No result Lab Status: No result Specimen: BRONCHIAL WASHING CULTURE TB/AFB OTHER (TYPE IN COMMENTS) [[id number]] Order Status: No result Lab Status: No result Specimen: BRONCHIAL WASHING SMEAR,FLUOR STAIN,ACID FAST [[id number]] Order Status: No result Lab Status: No result Specimen: BRONCHIAL WASHING CULTURE VIRAL RESPIRATORY RAPID [[id number]] Order Status: No result Lab Status: No result Specimen: BRONCHIAL WASHING CULTURE, QUANTITATIVE W/ GRAM STAIN [[id number]] Order Status: No result Lab Status: No result Specimen: BRONCHOALVEO LAV, RT LWR CULTURE, FUNGUS [[id number]] Collected: 07/30/221529 Order Status: No result Lab Status: In process Updated: 07/30/22 170 CULTURE RESPIRATORY W/ GRAM STAIN [[id number]] Collected: 07/30/221529 Order Status: Completed Lab Status: Final result Updated: 08/03/22 1228 Specimen: SITE Spec. Description SITE: BRONCH WASH Special Requests: NO SPECIAL REQUEST Gram Stain Result -- MANY NEUTROPHILS SEEN Gram Stain Result NO ORGANISMS SEEN Culture Result: -- FEW TETE ALBICANS SMEAR,FLUOR STAIN,ACID FAST [[id number]] Collected: 07/30/221529 Order Status: Completed Lab Status: Final result Updated: 08/01/222317 ACID FAST SMEAR RESULT SEE NOTE 08/01/2022 11:18 PM Comment: Test Result Flag Unit RefValue Acid Fast Smear For Mycobacterium SOURCE: BRONCHIAL WASHING, BWASH/BAL MIX ACID FAST SMEAR FOR MYCOBACTERIUM FINAL Negative. Test Performed by: [place] [address] Power Plant Operator Apprentice: Brent Alcaraz M.D. Ph.D.; CLIA# [id number] CULTURE TB/AFB OTHER [[id number]] Collected: 07/30/221529 Order Status: No result Lab Status: In process Updated: 07/30/22 170 CULTURE, QUANTITATIVE W/ GRAM STAIN [[id number]] Collected: 07/30/221529 Order Status: Completed Lab Status: Final result Updated: 08/02/22 1457 Specimen: SITE Spec. Description SITE: BAL RLL Special Requests: NO SPECIAL REQUEST Gram Stain Result <10 NEUTROPHILS PER LPF Gram Stain Result <10 EPITHELIAL CELLS PER LPF Gram Stain Result -- RARE GRAM NEGATIVE RODS Culture Result: -- 500 CFU/ML YEAST , ID UPON REQUEST CULTURE, FUNGUS [[id number]] Collected: 07/30/221529 Order Status: Canceled Lab Status: No result SMEAR,FLUOR STAIN,ACID FAST [[id number]] Collected: 07/30/22 153 Order Status: Canceled Lab Status: No result CULTURE TB/AFB OTHER [[id number]] Collected: 07/30/221529 Order Status: Canceled Lab Status: No result CULTURE CMV [[id number]] Collected: 07/30/221529 Order Status: No result Lab Status: In process Updated: 07/31/22 1431 CULTURE HERPES [[id number]] Collected: 07/30/221529 Order Status: No result Lab Status: In process Updated: 07/31/22 1432 CULTURE VIRAL RESPIRATORY RAPID [[id number]] Collected: 07/30/221529 Order Status: No result Lab Status: In process Updated: 07/31/22 143 CULTURE RESPIRATORY W/ GRAM STAIN [[id number]] Collected: 07/28/221424 Order Status: Completed Lab Status: [...] -- MODERATE PRESUMPTIVE TETE ALBICANS CULTURE, FUNGUS [[id number]] Collected: 07/28/221424 Order Status: Sent Lab Status: In process Updated: 07/31/22 133 Specimen: SPUTUM, EXPECTORATED CULTURE TB/AFB OTHER (TYPE IN COMMENTS) [[id number]] Collected: 07/28/221424 Order Status: Sent Lab Status: No result Specimen: SPUTUM, EXPECTORATED SMEAR,FLUOR STAIN,ACID FAST [[id number]] Collected: 07/28/221424 Order Status: No result Lab Status: In process Updated: 07/28/22 1612 HISTOPLASMA ANTIGEN [[id number]] Collected: 07/28/221423 Order Status: Sent Lab Status: No result Specimen: BLOOD HISTOPLASMA ANTIGEN [[id number]] Collected: 07/28/221423 Order Status: Canceled Lab Status: No result Specimen: BLOOD GLUCOSE, BODY FLUID [[id number]] Order Status: Canceled Lab Status: No result Specimen: PLEURAL FLUID PH BODY FLUID [[id number]] Order Status: Canceled Lab Status: No result Specimen: PLEURAL FLUID CULTURE, BODY FLUID W/ GRAM STAIN [[id number]] Order Status: Canceled Lab Status: No result Specimen: PLEURAL FLUID CULTURE, ANAEROBIC [[id number]] Order Status: Canceled Lab Status: No result Specimen: PLEURAL FLUID CULTURE, FUNGUS [[id number]] Order Status: Canceled Lab Status: No result Specimen: PLEURAL FLUID LDH BODY FLUID [[id number]] Collected: 07/27/221029 Order Status: Completed Lab Status: Final result Updated: 07/27/22 152 Specimen: PLEURAL FLUID FLUID LDH >4,000 UNITS/L Comment: REFERENCE RANGE NOT ESTABLISHED FOR THIS BODY FLUID. SOURCE (FLUID) PLEURAL FLUID CELL COUNT W/ DIFF BODY FLUID [[id number]] Collected: 07/27/221029 Order Status: Completed Lab Status: Final result Updated: 07/27/22 1545 Specimen: PLEURAL FLUID SOURCE (FLUID) PLEURAL FLUID FL WBC 144.450 x10'3/uL Comment: REFERENCE RANGE NOT ESTABLISHED FL RBC 0.090 x10'6/uL Comment: REFERENCE RANGE NOT ESTABLISHED DIFFERENTIAL MANUAL DIFFERENTIAL PERFORMED ON CONCENTRATED CYTOSPIN CELLS COUNTED 100 No COUNTED SEGS (FLUID) 97 % LYMPHS (FLUID) 3 % PROTEIN TOTAL FLUID [[id number]] Collected: 07/27/221029 Order Status: Completed Lab Status: Final result Updated: 07/27/22 152 Specimen: PLEURAL FLUID PROTEIN (FLUID) 3.5 G/DL Comment: REFERENCE RANGE NOT ESTABLISHED FOR THIS BODY FLUID. SOURCE (FLUID) PLEURAL FLUID CULTURE, BODY FLUID W/ GRAM STAIN [[id number]] Collected: 07/27/221029 Order Status: Canceled Lab Status: No result Specimen: PLEURAL FLUID CULTURE, ANAEROBIC [[id number]] Collected: 07/27/221029 Order Status: Canceled Lab Status: No result Specimen: PLEURAL FLUID CULTURE, BODY FLUID W/ GRAM STAIN [[id number]] (Susceptibility) Collected: 07/27/221029 Order Status: Completed Lab [...] Sensitive TRIMETH-SULFAMETH. Resistant VANCOMYCIN Sensitive CULTURE, ANAEROBIC [[id number]] (Susceptibility) Collected: 07/27/22 1030 Order Status: Completed Lab Status: Final result Updated: 08/01/22 0826 Specimen: SITE Spec. Description SITE: RT PLEURAL FLUID Special Requests: NO SPECIAL REQUEST Culture Result: -- FEW MICROAEROPHILIC STREPTOCOCCUS Susceptibility Microaerophilic streptococcus ARLEN (ETEST) CEFOTAXIME 0.023 Sensitive PENICILLIN G 0.008 Sensitive BLASTOMYCES AG MVISTA (TM), EIA [[id number]] Order Status: No result Lab Status: No result Specimen: BLOOD BLASTOMYCES AG MVISTA (TM), EIA [[id number]] Order Status: No result Lab Status: No result Specimen: URINE CORONAVIRUS (COVID 19) PCR - Asymptomatic patients, may be completed at physician discretion [[id number]] Collected: 07/25/222031 Order Status: Sent Lab Status: No result Specimen: NASOPHARYNGEAL SWAB STREP PNEUMO AG URINE [[id number]] Collected: 07/25/222030 Order Status: Completed Lab Status: [...] Type URINE VOIDED MRSA PCR nares Screening [[id number]] Collected: 07/25/222030 Order Status: Canceled Lab Status: No result Specimen: NASAL CULTURE, BACTERIA, BLOOD [[id number]] Collected: 07/25/221416 Order Status: Completed Lab Status: Final result Updated: 07/30/222144 Specimen: BLOOD Spec. Description BLOOD Special Requests: NO SPECIAL REQUEST Culture Result: NO GROWTH 5 DAYS CULTURE, BACTERIA, BLOOD [[id number]] Collected: 07/25/221415 Order Status: Completed Lab Status: [...] with the following history as [facility]: Problem List Items Addressed This Visit [...] improvement LANRE WINTER MD 3:18 PM 08/03/2022 YSIS SOCIAL WORKER * Raquel Wetzel MD - 08/03/2022 2:55 [...] placeholder, , Intravenous, See Admin Instructions, Tracy oY MD Scheduled Meds: ??? cefepime 2 g [...] Ross Blackburn MD at 08/04/2022 8:14 AM DIALYSIS SOCIAL WORKER YSIS SOCIAL WORKER YSIS SOCIAL WORKER * Ford Tay - 08/03/2022 2:52 PM [...] Pharmacy Consult per Dr. Srinath Tay Phone: [phone] 08/03/2022 2:54 PM Cosigned by Maria Antonia Quiñones, PharmD at 08/03/2022 3:40 PM DIALYSIS SOCIAL WORKER YSIS SOCIAL WORKER YSIS SOCIAL WORKER * Zoila Farias MD - 08/03/2022 12:40 PM CSTSummary: DESTINI ID PROGRESS NOTE [facility] INFECTIOUS DISEASE PROGRESS NOTE Attending Provider:Dr. Robbins PCP: JOE TAM DO Reason for Consultation: Loculated pleural effusions, Pneumonia ASSESSMENT AND PLAN Ray Phillips is a 67-year-old male with medical history of chronic tobacco use who was transferred from [facility] near [place] for treatment resistant pneumonia and loculated pleural [...] understanding with plan. Thank you for consulting [facility] Infectious Disease, we will continue to follow. Paulina Dale APRN [facility] Infectious Disease 08/03/2022 Teaching physician note: Infectious Diseases Attending Physician: Patient personally interviewed and examined. Chart reviewed. Vitals, pertinent labs and imaging reviewed. [facility] Infectious Disease resident/fellow note reviewed [...] 8 g, 8 g, Intrapleural, Once, Ross Blakcburn MD ??? traZODone (DESYREL) tablet 100 mg, 100 mg, Oral, Nightly at bedtime, Tracy Yo MD, 100 mg at 08/02/222000 ??? vancomycin 1000 mg in NS 250 mL IVPB, 1,000 mg, Intravenous, Q12H, Florencio Amaya MD, Stopped at 08/03/22 0739 ??? Pharmacy to dose vancomycin, , , Once AND vancomycin pharmacy to dose placeholder, , Intravenous, See Admin Instructions, Tracy Yo MD YSIS SOCIAL WORKER YSIS SOCIAL WORKER YSIS SOCIAL WORKER YSIS SOCIAL WORKER * Adali Henry, [facility] - 08/03/2022 11:43 AM CST DESTINI [...] will continue to follow. ?? 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 Discussed with Ana MOYA who okayed junior copywriter proceed with POC. Pt is a 67 [...] was notusing at home. Pt reports independence MANAGER STERILE PROCESSING with ADLs, IADLS, and was driving. Pt [...] RN entering to give pain meds as junior copywriter exiting room. Education: Primary Learners Name: Ray Phillips Primary Language of learner: Malagasy Patient Spouse was educated on exercises transfers balance bed mobility therapy plan safety. Education was completed one to one this date. Preference of learning new concepts one to one Barriers to education this date were pain fatigue. Response to education this date needs follow up. YSIS SOCIAL WORKER * Estephania Long RN - 08/03/2022 8:35 AM CST 08/03/22 0835 Interdisciplinary Group Conference Team Members Present Physician;Case/Care management (Dr. Winter: [facility]) Barriers to Discharge Barriers Not Medically ready Not Medically ready follow up [facility] [place] status: s/p Vats: Chest tube to suction Patient's plan is to dc to home,lives with significant other: May need home oxygen eval prior to dc. CM will continue to follow for safe dc planning/dc needs. YSIS SOCIAL WORKER * Lanre Winter MD - 08/02/2022 3:34 [...] Procedure Component Value Units Date/Time CULTURE, ANAEROBIC [[id number]] Collected: 08/02/22837 Order Status: Sent Lab Status: In process Updated: 08/02/22 1008 Specimen: TISSUE from OTHER (type in comments) CULTURE TB/AFB OTHER (TYPE IN COMMENTS) [[id number]] Collected: 08/02/22837 Order Status: Sent Lab Status: In process Updated: 08/02/22 1009 Specimen: TISSUE from OTHER (type in comments) CULTURE, FUNGUS [[id number]] Collected: 08/02/22837 Order Status: Sent Lab Status: In process Updated: 08/02/22 1010 Specimen: TISSUE from OTHER (type in comments) CULTURE, TISSUE W/GRAM STAIN [[id number]] Collected: 08/02/22837 Order Status: Sent Lab Status: In process Updated: 08/02/22 1010 Specimen: TISSUE from OTHER (type in comments) SMEAR,FLUOR STAIN,ACID FAST [[id number]] Collected: 08/02/22 0838 Order Status: No result Lab Status: In process Updated: 08/02/22 1012 CULTURE, FUNGUS [[id number]] Order Status: No result Lab Status: No result Specimen: BRONCHOALVEO LAV, RT LWR CULTURE TB/AFB OTHER (TYPE IN COMMENTS) [[id number]] Order Status: No result Lab Status: No result Specimen: BRONCHOALVEO LAV, RT LWR SMEAR,FLUOR STAIN,ACID FAST [[id number]] Order Status: No result Lab Status: No result Specimen: BRONCHOALVEO LAV, RT LWR CULTURE VIRAL RESPIRATORY RAPID [[id number]] Order Status: No result Lab Status: No result Specimen: BRONCHOALVEO LAV, RT LWR CULTURE RESPIRATORY W/ GRAM STAIN [[id number]] Order Status: No result Lab Status: No result Specimen: BRONCHIAL WASHING CULTURE, FUNGUS [[id number]] Order Status: No result Lab Status: No result Specimen: BRONCHIAL WASHING CULTURE TB/AFB OTHER (TYPE IN COMMENTS) [[id number]] Order Status: No result Lab Status: No result Specimen: BRONCHIAL WASHING SMEAR,FLUOR STAIN,ACID FAST [[id number]] Order Status: No result Lab Status: No result Specimen: BRONCHIAL WASHING CULTURE VIRAL RESPIRATORY RAPID [[id number]] Order Status: No result Lab Status: No result Specimen: BRONCHIAL WASHING CULTURE, QUANTITATIVE W/ GRAM STAIN [[id number]] Order Status: No result Lab Status: No result Specimen: BRONCHOALVEO LAV, RT LWR CULTURE, FUNGUS [[id number]] Collected: 07/30/22 153 Order Status: No result Lab Status: In process Updated: 07/30/22 1701 CULTURE RESPIRATORY W/ GRAM STAIN [[id number]] Collected: 07/30/22 153 Order Status: Completed Lab Status: Preliminary result Updated: 08/01/22 151 Specimen: SITE Spec. Description SITE: BRONCH WASH Special Requests: NO SPECIAL REQUEST Gram Stain Result -- MANY NEUTROPHILS SEEN Gram Stain Result NO ORGANISMS SEEN Culture Result: -- FEW YEAST . FURTHER ID TO FOLLOW. SMEAR,FLUOR STAIN,ACID FAST [[id number]] Collected: 111529 Order Status: Completed Lab Status: Final result Updated: 08/01/22 2318 ACID FAST SMEAR RESULT SEE NOTE 08/01/2022 11:18 PM Comment: Test Result Flag Unit RefValue Acid Fast Smear For Mycobacterium SOURCE: BRONCHIAL WASHING, BWASH/BAL MIX ACID FAST SMEAR FOR MYCOBACTERIUM FINAL Negative. Test Performed by: [facility] [place] [address] Power Plant Operator Apprentice: Brent Alcaraz M.D. Ph.D.; CLIA# [id number] CULTURE TB/AFB OTHER [[id number]] Collected: 07/30/221529 Order Status: No result Lab Status: In process Updated: 07/30/22 1704 CULTURE, QUANTITATIVE W/ GRAM STAIN [[id number]] Collected: 07/30/221529 Order Status: Completed Lab Status: Final result Updated: 08/02/22 145 Specimen: SITE Spec. Description SITE: BAL RLL Special Requests: NO SPECIAL REQUEST Gram Stain Result <10 NEUTROPHILS PER LPF Gram Stain Result <10 EPITHELIAL CELLS PER LPF Gram Stain Result -- RARE GRAM NEGATIVE RODS Culture Result: -- 500 CFU/ML YEAST , ID UPON REQUEST CULTURE, FUNGUS [[id number]] Collected: 07/30/221529 Order Status: Canceled Lab Status: No result SMEAR,FLUOR STAIN,ACID FAST [[id number]] Collected: 07/30/221529 Order Status: Canceled Lab Status: No result CULTURE TB/AFB OTHER [[id number]] Collected: 07/30/221529 Order Status: Canceled Lab Status: No result CULTURE CMV [[id number]] Collected: 07/30/221529 Order Status: No result Lab Status: In process Updated: 07/31/22 1431 CULTURE HERPES [[id number]] Collected: 07/30/221529 Order Status: No result Lab Status: In process Updated: 07/31/22 1432 CULTURE VIRAL RESPIRATORY RAPID [[id number]] Collected: 11/28/22 1530 Order Status: No result Lab Status: In process Updated: 07/31/22 1435 CULTURE RESPIRATORY W/ GRAM STAIN [[id number]] Collected: 07/28/221424 Order Status: Completed Lab Status: [...] -- MODERATE PRESUMPTIVE TETE ALBICANS CULTURE, FUNGUS [[id number]] Collected: 07/28/221424 Order Status: Sent Lab Status: In process Updated: 07/31/221335 Specimen: SPUTUM, EXPECTORATED CULTURE TB/AFB OTHER (TYPE IN COMMENTS) [[id number]] Collected: 07/28/221424 Order Status: Sent Lab Status: No result Specimen: SPUTUM, EXPECTORATED SMEAR,FLUOR STAIN,ACID FAST [[id number]] Collected: 07/28/221424 Order Status: No result Lab Status: In process Updated: 07/28/22 161 HISTOPLASMA ANTIGEN [[id number]] Collected: 07/28/221423 Order Status: Sent Lab Status: No result Specimen: BLOOD HISTOPLASMA ANTIGEN [[id number]] Collected: 07/28/221423 Order Status: Canceled Lab Status: No result Specimen: BLOOD GLUCOSE, BODY FLUID [[id number]] Order Status: Canceled Lab Status: No result Specimen: PLEURAL FLUID PH BODY FLUID [[id number]] Order Status: Canceled Lab Status: No result Specimen: PLEURAL FLUID CULTURE, BODY FLUID W/ GRAM STAIN [[id number]] Order Status: Canceled Lab Status: No result Specimen: PLEURAL FLUID CULTURE, ANAEROBIC [[id number]] Order Status: Canceled Lab Status: No result Specimen: PLEURAL FLUID CULTURE, FUNGUS [[id number]] Order Status: Canceled Lab Status: No result Specimen: PLEURAL FLUID LDH BODY FLUID [[id number]] Collected: 07/27/22 1030 Order Status: Completed Lab Status: Final result Updated: 07/27/22 152 Specimen: PLEURAL FLUID FLUID LDH >4,000 UNITS/L Comment: REFERENCE RANGE NOT ESTABLISHED FOR THIS BODY FLUID. SOURCE (FLUID) PLEURAL FLUID CELL COUNT W/ DIFF BODY FLUID [[id number]] Collected: 07/27/221029 Order Status: Completed Lab Status: Final result Updated: 07/27/22 1545 Specimen: PLEURAL FLUID SOURCE (FLUID) PLEURAL FLUID FL WBC 144.450 x10'3/uL Comment: REFERENCE RANGE NOT ESTABLISHED FL RBC 0.090 x10'6/uL Comment: REFERENCE RANGE NOT ESTABLISHED DIFFERENTIAL MANUAL DIFFERENTIAL PERFORMED ON CONCENTRATED CYTOSPIN CELLS COUNTED 100 No COUNTED SEGS (FLUID) 97 % LYMPHS (FLUID) 3 % PROTEIN TOTAL FLUID [[id number]] Collected: 07/27/221029 Order Status: Completed Lab Status: Final result Updated: 07/27/22 152 Specimen: PLEURAL FLUID PROTEIN (FLUID) 3.5 G/DL Comment: REFERENCE RANGE NOT ESTABLISHED FOR THIS BODY FLUID. SOURCE (FLUID) PLEURAL FLUID CULTURE, BODY FLUID W/ GRAM STAIN [[id number]] Collected: 07/27/221029 Order Status: Canceled Lab Status: No result Specimen: PLEURAL FLUID CULTURE, ANAEROBIC [[id number]] Collected: 07/27/221029 Order Status: Canceled Lab Status: No result Specimen: PLEURAL FLUID CULTURE, BODY FLUID W/ GRAM STAIN [[id number]] (Susceptibility) Collected: 07/27/221029 Order Status: Completed Lab [...] Sensitive TRIMETH-SULFAMETH. Resistant VANCOMYCIN Sensitive CULTURE, ANAEROBIC [[id number]] (Susceptibility) Collected: 07/27/221029 Order Status: Completed Lab Status: Final result Updated: 08/01/22 08 Specimen: SITE Spec. Description SITE: RT PLEURAL FLUID Special Requests: NO SPECIAL REQUEST Culture Result: -- FEW MICROAEROPHILIC STREPTOCOCCUS Susceptibility Microaerophilic streptococcus ARLEN (ETEST) CEFOTAXIME 0.023 Sensitive PENICILLIN G 0.008 Sensitive BLASTOMYCES AG MVISTA (TM), EIA [[id number]] Order Status: No result Lab Status: No result Specimen: BLOOD BLASTOMYCES AG MVISTA (TM), EIA [[id number]] Order Status: No result Lab Status: No result Specimen: URINE CORONAVIRUS (COVID 19) PCR - Asymptomatic patients, may be completed at physician discretion [[id number]] Collected: 07/25/222031 Order Status: Sent Lab Status: No result Specimen: NASOPHARYNGEAL SWAB STREP PNEUMO AG URINE [[id number]] Collected: 07/25/222030 Order Status: Completed Lab Status: [...] Type URINE VOIDED MRSA PCR nares Screening [[id number]] Collected: 07/25/222030 Order Status: Canceled Lab Status: No result Specimen: NASAL CULTURE, BACTERIA, BLOOD [[id number]] Collected: 07/25/221416 Order Status: Completed Lab Status: Final result Updated: 07/30/222144 Specimen: BLOOD Spec. Description BLOOD Special Requests: NO SPECIAL REQUEST Culture Result: NO GROWTH 5 DAYS CULTURE, BACTERIA, BLOOD [[id number]] Collected: 07/25/221415 Order Status: Completed Lab Status: [...] improvement LANRE WINTER MD 3:34 PM 08/02/2022 YSIS SOCIAL WORKER * Adali Henry, DIRECTOR OF SPORTS MEDICINE - 08/02/2022 12:50 PM CST [facility] PULMONOLOGY??PROGRESS??NOTE [...] Katie Paula MD at 08/02/2022 7:52 PM DIALYSIS SOCIAL WORKER YSIS SOCIAL WORKER YSIS SOCIAL WORKER Associated attestation - Katie Paula MD - 08/02/2022 7:52 PM DIALYSIS SOCIAL WORKER [facility] Pulmonary and Critical Care Medicine [...] for the consult. Pharmacy Consult per Dr. Srinaht Tay Phone: [phone] 08/02/2022 11:56 AM Cosigned by Maria Antonia Quiñones PharmD at 08/02/2022 3:49 PM DIALYSIS SOCIAL WORKER YSIS SOCIAL WORKER YSIS SOCIAL WORKER YSIS SOCIAL WORKER YSIS SOCIAL WORKER * Angela Dawkins RN - 08/02/2022 8:55 AM CSTSummary: D/C plans IDBR done with Dr Maggy HARRIS MD to discuss POC/D/C plans. See notes below. 08/02/22 1550 Interdisciplinary Group Conference Team Members Present Case/Care management;Physician Barriers to Discharge Barriers Not Medically ready Not Medically ready follow up Pt to have VATS today. Continue IMC status. YSIS SOCIAL WORKER * Lanre Winter MD - 08/01/2022 2:57 [...] Procedure Component Value Units Date/Time CULTURE, FUNGUS [[id number]] Order Status: No result Lab Status: No result Specimen: BRONCHOALVEO LAV, RT LWR CULTURE TB/AFB OTHER (TYPE IN COMMENTS) [[id number]] Order Status: No result Lab Status: No result Specimen: BRONCHOALVEO LAV, RT LWR SMEAR,FLUOR STAIN,ACID FAST [[id number]] Order Status: No result Lab Status: No result Specimen: BRONCHOALVEO LAV, RT LWR CULTURE VIRAL RESPIRATORY RAPID [[id number]] Order Status: No result Lab Status: No result Specimen: BRONCHOALVEO LAV, RT LWR CULTURE RESPIRATORY W/ GRAM STAIN [[id number]] Order Status: No result Lab Status: No result Specimen: BRONCHIAL WASHING CULTURE, FUNGUS [[id number]] Order Status: No result Lab Status: No result Specimen: BRONCHIAL WASHING CULTURE TB/AFB OTHER (TYPE IN COMMENTS) [[id number]] Order Status: No result Lab Status: No result Specimen: BRONCHIAL WASHING SMEAR,FLUOR STAIN,ACID FAST [[id number]] Order Status: No result Lab Status: No result Specimen: BRONCHIAL WASHING CULTURE VIRAL RESPIRATORY RAPID [[id number]] Order Status: No result Lab Status: No result Specimen: BRONCHIAL WASHING CULTURE, QUANTITATIVE W/ GRAM STAIN [[id number]] Order Status: No result Lab Status: No result Specimen: BRONCHOALVEO LAV, RT LWR CULTURE, FUNGUS [[id number]] Collected: 07/30/221529 Order Status: No result Lab Status: In process Updated: 07/30/22 1701 CULTURE RESPIRATORY W/ GRAM STAIN [[id number]] Collected: 07/30/221529 Order Status: Completed Lab Status: Preliminary result Updated: 07/31/221556 Specimen: SITE Spec. Description SITE: BRONCH WASH Special Requests: NO SPECIAL REQUEST Gram Stain Result -- MANY NEUTROPHILS SEEN Gram Stain Result NO ORGANISMS SEEN Culture Result: -- FEW YEAST , ID UPON REQUEST SMEAR,FLUOR STAIN,ACID FAST [[id number]] Collected: 07/30/221529 Order Status: No result Lab Status: In process Updated: 07/30/22 170 CULTURE TB/AFB OTHER [[id number]] Collected: 07/30/221529 Order Status: No result Lab Status: In process Updated: 07/30/22 170 CULTURE, QUANTITATIVE W/ GRAM STAIN [[id number]] Collected: 07/30/221529 Order Status: Completed Lab Status: Preliminary result Updated: 07/31/221557 Specimen: SITE Spec. Description SITE: BAL RLL Special Requests: NO SPECIAL REQUEST Gram Stain Result <10 NEUTROPHILS PER LPF Gram Stain Result <10 EPITHELIAL CELLS PER LPF Gram Stain Result -- RARE GRAM NEGATIVE RODS Culture Result: NO GROWTH 1 DAY CULTURE, FUNGUS [[id number]] Collected: 07/30/221529 Order Status: Canceled Lab Status: No result SMEAR,FLUOR STAIN,ACID FAST [[id number]] Collected: 07/30/221529 Order Status: Canceled Lab Status: No result CULTURE TB/AFB OTHER [[id number]] Collected: 07/30/221529 Order Status: Canceled Lab Status: No result CULTURE CMV [[id number]] Collected: 07/30/221529 Order Status: No result Lab Status: In process Updated: 07/31/22 1431 CULTURE HERPES [[id number]] Collected: 07/30/221529 Order Status: No result Lab Status: In process Updated: 07/31/22 1432 CULTURE VIRAL RESPIRATORY RAPID [[id number]] Collected: 07/30/22 1530 Order Status: No result Lab Status: In process Updated: 07/31/22 1435 CULTURE RESPIRATORY W/ GRAM STAIN [[id number]] Collected: 07/28/221424 Order Status: Completed Lab Status: [...] -- MODERATE PRESUMPTIVE TETE ALBICANS CULTURE, FUNGUS [[id number]] Collected: 07/28/221424 Order Status: Sent Lab Status: In process Updated: 07/31/22 1336 Specimen: SPUTUM, EXPECTORATED CULTURE TB/AFB OTHER (TYPE IN COMMENTS) [[id number]] Collected: 07/28/221424 Order Status: Sent Lab Status: No result Specimen: SPUTUM, EXPECTORATED SMEAR,FLUOR STAIN,ACID FAST [[id number]] Collected: 07/28/221424 Order Status: No result Lab Status: In process Updated: 07/28/22 1612 HISTOPLASMA ANTIGEN [[id number]] Collected: 07/28/221423 Order Status: Sent Lab Status: No result Specimen: BLOOD HISTOPLASMA ANTIGEN [[id number]] Collected: 07/28/221423 Order Status: Canceled Lab Status: No result Specimen: BLOOD GLUCOSE, BODY FLUID [[id number]] Order Status: Canceled Lab Status: No result Specimen: PLEURAL FLUID PH BODY FLUID [[id number]] Order Status: Canceled Lab Status: No result Specimen: PLEURAL FLUID CULTURE, BODY FLUID W/ GRAM STAIN [[id number]] Order Status: Canceled Lab Status: No result Specimen: PLEURAL FLUID CULTURE, ANAEROBIC [[id number]] Order Status: Canceled Lab Status: No result Specimen: PLEURAL FLUID CULTURE, FUNGUS [[id number]] Order Status: Canceled Lab Status: No result Specimen: PLEURAL FLUID LDH BODY FLUID [[id number]] Collected: 11/25/22 1030 Order Status: Completed Lab Status: Final result Updated: 07/27/22 1522 Specimen: PLEURAL FLUID FLUID LDH >4,000 UNITS/L Comment: REFERENCE RANGE NOT ESTABLISHED FOR THIS BODY FLUID. SOURCE (FLUID) PLEURAL FLUID CELL COUNT W/ DIFF BODY FLUID [[id number]] Collected: 07/27/221029 Order Status: Completed Lab Status: Final result Updated: 07/27/22 1545 Specimen: PLEURAL FLUID SOURCE (FLUID) PLEURAL FLUID FL WBC 144.450 x10'3/uL Comment: REFERENCE RANGE NOT ESTABLISHED FL RBC 0.090 x10'6/uL Comment: REFERENCE RANGE NOT ESTABLISHED DIFFERENTIAL MANUAL DIFFERENTIAL PERFORMED ON CONCENTRATED CYTOSPIN CELLS COUNTED 100 No COUNTED SEGS (FLUID) 97 % LYMPHS (FLUID) 3 % PROTEIN TOTAL FLUID [[id number]] Collected: 07/27/221029 Order Status: Completed Lab Status: Final result Updated: 07/27/22 152 Specimen: PLEURAL FLUID PROTEIN (FLUID) 3.5 G/DL Comment: REFERENCE RANGE NOT ESTABLISHED FOR THIS BODY FLUID. SOURCE (FLUID) PLEURAL FLUID CULTURE, BODY FLUID W/ GRAM STAIN [[id number]] Collected: 07/27/221029 Order Status: Canceled Lab Status: No result Specimen: PLEURAL FLUID CULTURE, ANAEROBIC [[id number]] Collected: 07/27/221029 Order Status: Canceled Lab Status: No result Specimen: PLEURAL FLUID CULTURE, BODY FLUID W/ GRAM STAIN [[id number]] (Susceptibility) Collected: 07/27/221029 Order Status: Completed Lab [...] Sensitive TRIMETH-SULFAMETH. Resistant VANCOMYCIN Sensitive CULTURE, ANAEROBIC [[id number]] (Susceptibility) Collected: 07/27/221029 Order Status: Completed Lab Status: Final result Updated: 08/01/22 0826 Specimen: SITE Spec. Description SITE: RT PLEURAL FLUID Special Requests: NO SPECIAL REQUEST Culture Result: -- FEW MICROAEROPHILIC STREPTOCOCCUS Susceptibility Microaerophilic streptococcus ARLEN (ETEST) CEFOTAXIME 0.023 Sensitive PENICILLIN G 0.008 Sensitive BLASTOMYCES AG MVISTA (TM), EIA [[id number]] Order Status: No result Lab Status: No result Specimen: BLOOD BLASTOMYCES AG MVISTA (TM), EIA [[id number]] Order Status: No result Lab Status: No result Specimen: URINE CORONAVIRUS (COVID 19) PCR - Asymptomatic patients, may be completed at physician discretion [[id number]] Collected: 07/25/222031 Order Status: Sent Lab Status: No result Specimen: NASOPHARYNGEAL SWAB STREP PNEUMO AG URINE [[id number]] Collected: 07/25/222030 Order Status: Completed Lab Status: [...] Type URINE VOIDED MRSA PCR nares Screening [[id number]] Collected: 07/25/222030 Order Status: Canceled Lab Status: No result Specimen: NASAL CULTURE, BACTERIA, BLOOD [[id number]] Collected: 07/25/22 141 Order Status: Completed Lab Status: Final result Updated: 07/30/222144 Specimen: BLOOD Spec. Description BLOOD Special Requests: NO SPECIAL REQUEST Culture Result: NO GROWTH 5 DAYS CULTURE, BACTERIA, BLOOD [[id number]] Collected: 07/25/221415 Order Status: Completed Lab Status: [...] counselling LANRE WINTER MD 2:57 PM 08/01/2022 YSIS SOCIAL WORKER * Dayami Robbins MD - 08/01/2022 2:48 PM CSTSummary: [facility] ID progress note [facility] INFECTIOUS DISEASE PROGRESS NOTE Attending Provider:Dr. Robbins PCP: JOE TAM DO Reason for Consultation: Loculated pleural effusions, Pneumonia ASSESSMENT AND PLAN Ray Phillips is a 67-year-old male with medical history of chronic tobacco use who was transferred from [facility] near [place] for treatment resistant pneumonia and loculated pleural [...] understanding with plan. Thank you for consulting [facility] Infectious Disease, we will continue to follow. Paulina Dale APRN [facility] Infectious Disease 08/01/2022 Teaching physician note: Infectious Diseases Attending Physician: Patient personally interviewed and examined. Labs and vitals reviewed. [facility] Infectious Disease mid-level provider's note [...] 8 mL at 07/27/22 1016 lidocaine-EPINEPHrine 2 %-1:293709 injection 20 mL, 20 mL, Intradermal, Once, [...] Intravenous, See Admin Instructions, Tracy Yo MD YSIS SOCIAL WORKER YSIS SOCIAL WORKER YSIS SOCIAL WORKER YSIS SOCIAL WORKER * Adali Henry, DIRECTOR OF SPORTS MEDICINE - 08/01/2022 11:14 AM CST [facility] PULMONOLOGY??PROGRESS??NOTE [...] Katie Paula MD at 08/01/2022 7:49 PM DIALYSIS SOCIAL WORKER YSIS SOCIAL WORKER YSIS SOCIAL WORKER Associated attestation - Katie Paula MD - 08/01/2022 7:49 PM DIALYSIS SOCIAL WORKER [facility] Pulmonary and Critical Care Medicine [...] Pharmacy Consult per Dr. Srinath Tay Phone: [phone] 08/01/2022 1:35 PM Cosigned by Maria Antonia Quiñones PharmD at 08/01/2022 3:38 PM DIALYSIS SOCIAL WORKER YSIS SOCIAL WORKER YSIS SOCIAL WORKER Associated attestation - Maria Antonia Quiñones PharmD - 08/01/2022 3:38 PM DIALYSIS SOCIAL WORKER Next LVL will be Saturday 12 AM [...] VATS 08/02. Continue IMC status. CM following. YSIS SOCIAL WORKER * Raquel Wetzel MD - 08/01/2022 6:56 [...] 8 mLat 07/27/22 1016 ??? 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 Pt reports independence MANAGER STERILE PROCESSING with ADLs, IADLS, and was driving. Pt [...] Assistance Independent UE Dressing Deficit Setup;Thread RUE;Thread LUE;government instructor head;Pull around back;Pull down in back UE [...] Name: Ray Phillips Primary Language of learner: Malagasy Patient was educated on exercises transfers ADLs balance bed mobility therapy plan safety energy conservation. Education was completed one to one verbal this date. Preference of learning new concepts one to one verbal Barriers to education this date were fatigue. Response to education this date verbalized understanding verbalized recall asks questions demos with verbal cues demos adequately needs follow up needs assistance. YSIS SOCIAL WORKER * Dayami Robbins MD - 07/31/2022 1:55 PM CSTSummary: DE[facility]INI ID PROGRESS NOTE [facility] INFECTIOUS DISEASE PROGRESS NOTE Attending Provider:Dr. Robbins PCP: JOE TAM DO Reason for Consultation: Loculated pleural effusions, Pneumonia ASSESSMENT AND PLAN Ray Phillips is a 67-year-old male with medical history of chronic tobacco use who was transferred from [facility] near [place] for treatment resistant pneumonia and loculated pleural [...] understanding with plan. Thank you for consulting [facility] Infectious Disease, we will continue to follow. Paulina Dale APRN [facility] Infectious Disease 07/31/2022 Teaching physician note: Infectious Diseases Attending Physician: Patient personally interviewed and examined. Labs and vitals reviewed. 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 Pt reports independence MANAGER STERILE PROCESSING with ADLs, IADLS, and was driving. Pt [...] Name: Ray Phillips Primary Language of learner: Malagasy Patient was educated on precautions transfers balance bed mobility therapy plan gait safety. Education was completed one to one verbal hands-on demonstration this date. Preference of learning new concepts one to one verbal hands-on demonstration Barriers to education this date were none. Response to education this date verbalized understanding. YSIS SOCIAL WORKER * Patel Kelsey MD - 07/31/2022 12:43 [...] Katie Paula MD at 07/31/2022 4:44 PM DIALYSIS SOCIAL WORKER YSIS SOCIAL WORKER YSIS SOCIAL WORKER Associated attestation - Katie Paula MD - 07/31/2022 4:44 PM DIALYSIS SOCIAL WORKER [facility] Pulmonary and Critical Care Medicine Attending [...] Procedure Component Value Units Date/Time CULTURE, FUNGUS [[id number]] Order Status: No result Lab Status: No result Specimen: BRONCHOALVEO LAV, RT LWR CULTURE TB/AFB OTHER (TYPE IN COMMENTS) [[id number]] Order Status: No result Lab Status: No result Specimen: BRONCHOALVEO LAV, RT LWR SMEAR,FLUOR STAIN,ACID FAST [[id number]] Order Status: No result Lab Status: No result Specimen: BRONCHOALVEO LAV, RT LWR CULTURE VIRAL RESPIRATORY RAPID [[id number]] Order Status: No result Lab Status: No result Specimen: BRONCHOALVEO LAV, RT LWR CULTURE RESPIRATORY W/ GRAM STAIN [[id number]] Order Status: No result Lab Status: No result Specimen: BRONCHIAL WASHING CULTURE, FUNGUS [[id number]] Order Status: No result Lab Status: No result Specimen: BRONCHIAL WASHING CULTURE TB/AFB OTHER (TYPE IN COMMENTS) [[id number]] Order Status: No result Lab Status: No result Specimen: BRONCHIAL WASHING SMEAR,FLUOR STAIN,ACID FAST [[id number]] Order Status: No result Lab Status: No result Specimen: BRONCHIAL WASHING CULTURE VIRAL RESPIRATORY RAPID [[id number]] Order Status: No result Lab Status: No result Specimen: BRONCHIAL WASHING CULTURE, QUANTITATIVE W/ GRAM STAIN [[id number]] Order Status: No result Lab Status: No result Specimen: BRONCHOALVEO LAV, RT LWR CULTURE, FUNGUS [[id number]] Collected: 07/30/22 153 Order Status: No result Lab Status: In process Updated: 07/30/22 170 CULTURE RESPIRATORY W/ GRAM STAIN [[id number]] Collected: 07/30/22 153 Order Status: Completed Lab Status: Preliminary result Updated: 07/30/22 2017 Specimen: SITE Spec. Description SITE: BRONCH WASH Special Requests: NO SPECIAL REQUEST Gram Stain Result -- MANY NEUTROPHILS SEEN Gram Stain Result NO ORGANISMS SEEN Culture Result: PENDING SMEAR,FLUOR STAIN,ACID FAST [[id number]] Collected: 07/30/22 1530 Order Status: No result Lab Status: In process Updated: 07/30/22 1703 CULTURE TB/AFB OTHER [[id number]] Collected: 07/30/22 153 Order Status: No result Lab Status: In process Updated: 07/30/22 1704 CULTURE, QUANTITATIVE W/ GRAM STAIN [[id number]] Collected: 07/30/22 153 Order Status: Completed Lab Status: Preliminary result Updated: 07/31/22 044 Specimen: SITE Spec. Description SITE: BAL RLL Special Requests: NO SPECIAL REQUEST Gram Stain Result <10 NEUTROPHILS PER LPF Gram Stain Result <10 EPITHELIAL CELLS PER LPF Gram Stain Result -- RARE GRAM NEGATIVE RODS Culture Result: PENDING CULTURE, FUNGUS [[id number]] Collected: 07/30/221529 Order Status: Canceled Lab Status: No result SMEAR,FLUOR STAIN,ACID FAST [[id number]] Collected: 07/30/221529 Order Status: Canceled Lab Status: No result CULTURE TB/AFB OTHER [[id number]] Collected: 07/30/221529 Order Status: Canceled Lab Status: No result CULTURE RESPIRATORY W/ GRAM STAIN [[id number]] Collected: 07/28/221424 Order Status: Completed Lab Status: [...] -- MODERATE PRESUMPTIVE TETE ALBICANS CULTURE, FUNGUS [[id number]] Collected: 07/28/221424 Order Status: Sent Lab Status: No result Specimen: SPUTUM, EXPECTORATED CULTURE TB/AFB OTHER (TYPE IN COMMENTS) [[id number]] Collected: 07/28/221424 Order Status: Sent Lab Status: No result Specimen: SPUTUM, EXPECTORATED SMEAR,FLUOR STAIN,ACID FAST [[id number]] Collected: 07/28/221424 Order Status: No result Lab Status: In process Updated: 07/28/22 1612 HISTOPLASMA ANTIGEN [[id number]] Collected: 07/28/221423 Order Status: Sent Lab Status: No result Specimen: BLOOD HISTOPLASMA ANTIGEN [[id number]] Collected: 07/28/221423 Order Status: Canceled Lab Status: No result Specimen: BLOOD GLUCOSE, BODY FLUID [[id number]] Order Status: Sent Lab Status: No result Specimen: PLEURAL FLUID PH BODY FLUID [[id number]] Order Status: Sent Lab Status: No result Specimen: PLEURAL FLUID CULTURE, BODY FLUID W/ GRAM STAIN [[id number]] Order Status: Canceled Lab Status: No result Specimen: PLEURAL FLUID CULTURE, ANAEROBIC [[id number]] Order Status: Canceled Lab Status: No result Specimen: PLEURAL FLUID CULTURE, FUNGUS [[id number]] Order Status: Canceled Lab Status: No result Specimen: PLEURAL FLUID LDH BODY FLUID [[id number]] Collected: 07/27/221029 Order Status: Completed Lab Status: Final result Updated: 07/27/22 152 Specimen: PLEURAL FLUID FLUID LDH >4,000 UNITS/L Comment: REFERENCE RANGE NOT ESTABLISHED FOR THIS BODY FLUID. SOURCE (FLUID) PLEURAL FLUID CELL COUNT W/ DIFF BODY FLUID [[id number]] Collected: 07/27/221029 Order Status: Completed Lab Status: Final result Updated: 07/27/22 154 Specimen: PLEURAL FLUID SOURCE (FLUID) PLEURAL FLUID FL WBC 144.450 x10'3/uL Comment: REFERENCE RANGE NOT ESTABLISHED FL RBC 0.090 x10'6/uL Comment: REFERENCE RANGE NOT ESTABLISHED DIFFERENTIAL MANUAL DIFFERENTIAL PERFORMED ON CONCENTRATED CYTOSPIN CELLS COUNTED 100 No COUNTED SEGS (FLUID) 97 % LYMPHS (FLUID) 3 % PROTEIN TOTAL FLUID [[id number]] Collected: 07/27/221029 Order Status: Completed Lab Status: Final result Updated: 07/27/22 152 Specimen: PLEURAL FLUID PROTEIN (FLUID) 3.5 G/DL Comment: REFERENCE RANGE NOT ESTABLISHED FOR THIS BODY FLUID. SOURCE (FLUID) PLEURAL FLUID CULTURE, BODY FLUID W/ GRAM STAIN [[id number]] Collected: 07/27/221029 Order Status: Canceled Lab Status: No result Specimen: PLEURAL FLUID CULTURE, ANAEROBIC [[id number]] Collected: 07/27/221029 Order Status: Canceled Lab Status: No result Specimen: PLEURAL FLUID CULTURE, BODY FLUID W/ GRAM STAIN [[id number]] (Susceptibility) Collected: 07/27/221029 Order Status: Completed Lab Status: Final result Updated: 07/31/22 075 Specimen: PLEURAL FLUID Spec. Description PLEURAL FLUID: RT Special Requests: NO SPECIAL REQUEST Gram Stain Result -- MANY NEUTROPHILS SEEN Gram Stain Result NO ORGANISMS SEEN Culture Result: -- RARE STAPHYLOCOCCUS EPIDERMIDIS Susceptibility Staphylococcus epidermidis RALEN (VITEK) CLINDAMYCIN Sensitive ERYTHROMYCIN Sensitive GENTAMICIN Sensitive OXACILLIN Sensitive PENICILLIN G Resistant RIFAMPIN Sensitive TETRACYCLINE Sensitive TRIMETH-SULFAMETH. Resistant VANCOMYCIN Sensitive CULTURE, ANAEROBIC [[id number]] Collected: 07/27/22 1030 Order Status: Completed Lab Status: Preliminary result Updated: 07/30/22 174 Specimen: SITE Spec. Description SITE: RT PLEURAL FLUID Special Requests: NO SPECIAL REQUEST Culture Result: -- FEW MICROAEROPHILIC STREPTOCOCCUS BLASTOMYCES AG MVISTA (TM), EIA [[id number]] Order Status: No result Lab Status: No result Specimen: BLOOD BLASTOMYCES AG MVISTA (TM), EIA [[id number]] Order Status: No result Lab Status: No result Specimen: URINE CORONAVIRUS (COVID 19) PCR - Asymptomatic patients, may be completed at physician discretion [[id number]] Collected: 07/25/222031 Order Status: Sent Lab Status: No result Specimen: NASOPHARYNGEAL SWAB STREP PNEUMO AG URINE [[id number]] Collected: 07/25/222030 Order Status: Completed Lab Status: [...] Type URINE VOIDED MRSA PCR nares Screening [[id number]] Collected: 07/25/222030 Order Status: Canceled Lab Status: No result Specimen: NASAL CULTURE, BACTERIA, BLOOD [[id number]] Collected: 07/25/221416 Order Status: Completed Lab Status: Final result Updated: 07/30/222144 Specimen: BLOOD Spec. Description BLOOD Special Requests: NO SPECIAL REQUEST Culture Result: NO GROWTH 5 DAYS CULTURE, BACTERIA, BLOOD [[id number]] Collected: 07/25/221415 Order Status: Completed Lab Status: [...] with the following history as recorded in [facility]: Problem List Items Addressed This Visit [...] counselling LANRE WINTER MD 11:32 AM 07/31/2022 YSIS SOCIAL WORKER * Estephania Long RN - 07/31/2022 9:09 AM CST 07/31/22 0909 Interdisciplinary Group Conference Team Members Present Physician;Case/Care management (Dr. Winter : [facility]) Barriers to Discharge Barriers Not Medically ready Not Medically ready follow up [facility] Status: Chest tube: s/p bronch Pulm following YSIS SOCIAL WORKER * Ford Tay - 07/31/2022 8:47 AM [...] Pharmacy Consult per Dr. Srinath Tay Phone: [phone] 07/31/2022 12:56 PM Cosigned by Maria Antonia Quiñones, PharmD at 07/31/2022 2:22 PM DIALYSIS SOCIAL WORKER YSIS SOCIAL WORKER YSIS SOCIAL WORKER YSIS SOCIAL WORKER YSIS SOCIAL WORKER * Raquel Wetzel MD - 07/31/2022 6:52 [...] 8 mLat 07/27/22 1016 ??? lidocaine-EPINEPHrine 2 %-1:053269 injection 20 mL, 20 mL, Intradermal, Once, [...] Ross Blackburn MD at 08/02/2022 6:57 AM DIALYSIS SOCIAL WORKER YSIS SOCIAL WORKER YSIS SOCIAL WORKER * Dayami Robbins MD - 07/30/2022 2:10 PM CSTSummary: [facility] ID CHART NOTE [facility] INFECTIOUS DISEASE CHART NOTE Reason [...] any questions or concerns. Paulina Dale APRN [facility] Infectious Disease 07/30/2022 Teaching physician note: Infectious Diseases Attending Physician: Labs and vitals reviewed. [facility] Infectious Disease mid-level provider's note reviewed and findings verified. Case discussed with the Infectious Disease team YSIS SOCIAL WORKER YSIS SOCIAL WORKER YSIS SOCIAL WORKER * Ford Tay - 07/30/2022 1:48 PM [...] Pharmacy Consult per Dr. Srinath Tay Phone: [phone] 07/30/2022 1:48 PM Cosigned by Maria Antonia Quiñones, PharmD at 07/31/2022 8:10 AM DIALYSIS SOCIAL WORKER YSIS SOCIAL WORKER YSIS SOCIAL WORKER YSIS SOCIAL WORKER * Patel Kelsey MD - 07/30/2022 1:20 PM CST [facility] PULMONOLOGY??PROGRESS??NOTE ?? Attending Provider:??Florencio Amaya MD PCP:??GRACIELA LEIGH MD? Reason for Admission:?Respiratory failure ([facility]) ?? Reason for Consult:??Respiratory failure, necrotizing pneumonia,??possible [...] TPA/dornase per IR for loculations - Bronchoscopy animal cruelty investigation supervisor for this afternoon, est 3:00pm, will follow [...] Danielle Avelar DO at 07/30/2022 9:55 PM DIALYSIS SOCIAL WORKER YSIS SOCIAL WORKER YSIS SOCIAL WORKER Associated attestation - Danielle Avelar DO - 07/30/2022 9:55 PM DIALYSIS SOCIAL WORKER [facility] Pulmonary/Critical Care Medicine Attending Note: I rounded with the leisure travel agent and residents. 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 Pt reports independence MANAGER STERILE PROCESSING with ADLs, IADLS, and was driving. Pt [...] Name: Ray Phillips Primary Language of learner: Malagasy Patient was educated on precautions transfers ADLs balance bed mobility therapy plan safety. Education was completed one to one this date. Preference of learning new concepts one to one Barriers to education this date were none. Response to education this date needs follow up. YSIS SOCIAL WORKER * Florencio Amaya MD - 07/30/2022 11:52 [...] nebulizer solution 3 mL 3 mL Nebulization [id number] Stevan Yo MD 3 mL at 07/30/22 1120 ??? lidocaine (XYLOCAINE) 1 % injection SOLN Code/Trauma/Sedation Med Raul Osuna MD 8 mL at 07/27/22 1016 ??? lidocaine-EPINEPHrine 2 %-1:183466 injection 20 mL 20 mL Intradermal Once [...] ill with high likelihood for decompensation. FLORENCIO MAAYA MD YSIS SOCIAL WORKER * Angela Dawkins RN - 07/30/2022 10:05 AM CSTSummary: D/C plans IDBR done with Dr Beatrice HARRIS MD to discuss POC/D/C plans. See notes below. 07/30/22 1005 Interdisciplinary Group Conference Team Members Present Physician;Case/Care management Barriers to Discharge Barriers Not Medically ready Not Medically ready follow up Pt to continue [facility] status-necrotizing pneumonia, chest tube, having Bronchoscopy today with cultues. CM following. PT/OT recs home with assist when able. CM following. YSIS SOCIAL WORKER * Patel Kelsey MD - 07/29/2022 12:53 [...] Patti Pineda MD at 07/29/2022 1:05 PM DIALYSIS SOCIAL WORKER YSIS SOCIAL WORKER YSIS SOCIAL WORKER Associated attestation - Patti Pineda MD - 07/29/2022 1:05 PM DIALYSIS SOCIAL WORKER Kenisha Brizuela MD, I rounded with nurses, [...] Q24H Tracy Yo MD Stopped at 07/28/22 1585 ??? ceFEPIme (MAXIPIME) 2 g in sodium [...] nebulizer solution 3 mL 3 mL Nebulization [id number] Stevan Yo MD 3 mL at 07/29/22 0832 ??? lidocaine (XYLOCAINE) 1 % injection SOLN Code/Trauma/Sedation Med Raul Osuna MD 8 mL at 07/27/22 1016 ??? lidocaine-EPINEPHrine 2 %-1:988067 injection 20 mL 20 mL Intradermal Once [...] high likelihood for decompensation. FLORENCIO AMAYA MD YSIS SOCIAL WORKER YSIS SOCIAL WORKER * Alfred Hill, PharmD, [facility] - 07/29/2022 11:04 AM CST Vancomycin Pharmacokinetic [...] Pharmacy Consult per Dr. Srinath Hill, PharmD, [facility] Phone: [phone] 07/29/2022 11:04 AM YSIS SOCIAL WORKER * Patel Kelsey MD - 07/28/2022 11:00 [...] Patti Pineda MD at 07/28/2022 1:59 PM DIALYSIS SOCIAL WORKER YSIS SOCIAL WORKER YSIS SOCIAL WORKER Associated attestation - Patti Pineda MD - 07/28/2022 1:59 PM DIALYSIS SOCIAL WORKER Kenisha Brizuela MD, I rounded with RT, [...] nebulizer solution 3 mL 3 mL Nebulization [id number] Stevan Yo MD 3 mL at 07/28/22 0811 ??? lidocaine (XYLOCAINE) 1 % injection SOLN Code/Trauma/Sedation Med Raul Osuna MD 8 mL at 07/27/22 1016 ??? lidocaine-EPINEPHrine 2 %-1:719726 injection 20 mL 20 mL Intradermal Once [...] high likelihood for decompensation. FLORENCIO AMAYA MD YSIS SOCIAL WORKER * Joann HawthorneD, [facility] - 07/28/2022 10:12 AM CST Vancomycin Pharmacokinetic [...] Pharmacy Consult per Dr. Srinath Hill, PharmD, [facility] Phone: [phone] 07/28/2022 10:12 AM YSIS SOCIAL WORKER * Florencio Amaya MD - 07/27/2022 12:01 [...] nebulizer solution 3 mL 3 mL Nebulization [id number] Stevan Yo MD 3 mL at 07/27/22 1142 ??? lidocaine (XYLOCAINE) 1 % injection SOLN Code/Trauma/Sedation Med Raul Osuna MD 8 mL at 07/27/22 1016 ??? lidocaine-EPINEPHrine 2 %-1:697152 injection 20 mL 20 mL Intradermal Once [...] high likelihood for decompensation. FLORENCIO AMAYA MD YSIS SOCIAL WORKER YSIS SOCIAL WORKER * Patel Kelsey MD - 07/27/2022 11:41 [...] Instructions ??? sodium chloride 250 mL (07/27/22 0379) PRN: acetaminophen, albuterol sulfate HFA, cyclobenzaprine, fentaNYL, [...] Patti Pineda MD at 07/27/2022 3:23 PM DIALYSIS SOCIAL WORKER YSIS SOCIAL WORKER YSIS SOCIAL WORKER Associated attestation - Patti Pineda MD - 07/27/2022 3:23 PM DIALYSIS SOCIAL WORKER IKenisha MD, I rounded with RT, nurses, [...] tube placement Interventional Radiologist: Dr. Raul Osuna Paper Carrier: RODNEY NOLASCO MD Anesthesia: IV conscious moderate [...] Raul Osuna MD at 07/27/2022 1:54 PM DIALYSIS SOCIAL WORKER YSIS SOCIAL WORKER YSIS SOCIAL WORKER YSIS SOCIAL WORKER Associated attestation - Raul Osuna MD - 07/27/2022 1:54 PM DIALYSIS SOCIAL WORKER I was present during all critical and santos portions of the procedure(s) and immediately available [facility] the entire duration. See PA or [...] desires to proceed. RODNEY NOLASCO MD 07/27/2022 YSIS SOCIAL WORKER * Angela Dawkins RN - 07/27/2022 9:40 [...] pt. CM following for safe D/C plans. YSIS SOCIAL WORKER * Michaelle Nielsen MD - 07/27/2022 8:59 [...] culture as soon as possible. Will follow. 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 Pt reports independence MANAGER STERILE PROCESSING with ADLs, IADLS, and was driving. Pt [...] session Pt reports independence as functional status MANAGER STERILE PROCESSING. Pt presents with pain, SOB, weakness, decreased [...] functional transfers in room and bathroom with Marathon in order to increase independence with functional transfers. Pt will increase standing activity balance using for 3-5 minutes with independence order to increase independence with ADLs, functional transfers, and leisure activities. Pt will perform all LB dressing using AE PRN including clothing retrieval with Modified Marathon in order to increase independence with ADLs. Pt will brush teeth, wash face, brush hair, and wash hands standing at sink with Marathon in order to increase independence with ADLs. Pt will perform all toileting tasks including clothing management with Marathon in order to increase independence with functional transfers and ADLs. Pt will bathe whole body and wash hair seated on shower chair with Modified Marathon in order to increase independence with ADLs. Pt will perform supine to sit and sit to supine bed mobility with Marathon in order to increaseindependence with ADLs, transitional [...] use of techniques during functional activities with Marathon in order to increase overall activity tolerance [...] Name: Ray Phillips Primary Language of learner: Malagasy Patient Spouse educated on precautions exercises transfers ADLs balance bed mobility equipment therapy plan gait safety. Education was completed one to one verbal hands-on this date. Preference of learning new concepts one to one verbal hands-on Barriers to education this date were pain fatigue. Response to education this date verbalized understanding needs follow up needs assistance. YSIS SOCIAL WORKER * Maria Antonia Quiñones, JoannD - 07/27/2022 [...] Consult per Dr. Srinath Quiñones, PharmD Phone: [phone] 07/27/2022 8:37 AM YSIS SOCIAL WORKER YSIS SOCIAL WORKER * Angela Dawkins RN - 07/27/2022 8:35 AM CSTSummary: D/C plans Met with pt and ex /emergency contact, Maite Eldridge at bedside to assess/discuss CM needs/safe D/C plans. PCP Dr Jany CUEVAS. Meds [facility] Leonardo CUEVAS. 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 Pt reports independence MANAGER STERILE PROCESSING with ADLs, IADLS, and was driving. Pt [...] perform supine to/from sitting at EOB with Marathon to improve mobility. Pt. will be able to perform sit to/from standing with modified independence using wheeled walker toimprove independence. Pt. will be able to ambulate 300 feet with Modified Marathon using wheeled walker to help improve strength and functional independence. Pt. will be able to maintain dynamic sitting balance on soft surface with Marathon to improve functional mobility. Pt. will be able to maintain static standing balance 5-10 minutes with Modified Marathon using wheeled walker to improve independence. Pt. will be able to maintain dynamic standing balance during side-stepping L/R and marching with Modified Marathon using wheeled walker to improve functional mobility. Education: Primary Learners Name: Ray Phillips Primary Language of learner: Malagasy Patient was educated on precautions exercises transfers ADLs balance bed mobility equipment therapy plan gait safety. Education was completed verbal hands-on demonstration this date. Preference of learning new concepts verbal hands-on demonstration Barriers to education this date were pain. Response to education this date needs follow up. YSIS SOCIAL WORKER * Joann HartleyD - 07/26/2022 3:08 PM [...] Consult per Dr. Srinath STEVE, PharmD Phone: [phone] 07/26/2022 3:08 PM YSIS SOCIAL WORKER * Florencio Amaya MD - 07/26/2022 10:12 [...] nebulizer solution 3 mL 3 mL Nebulization [id number] Stevan Yo MD 3 mL at 07/26/22 0745 ??? lidocaine-EPINEPHrine 2 %-1:800285 injection 20 mL 20 mL Intradermal Once [...] high likelihood for decompensation. FLORENCIO AMAYA MD YSIS SOCIAL WORKER * Nan Gomez RN - 07/26/2022 2:31 [...] potential discharge needs. Outcome: Met This Shift YSIS SOCIAL WORKER * Ann Hammond NP - 07/26/2022 2:00 AM CST Pt seen at bedside, cta reviewed, Saturations 94% on 14l HFNC, Viji hgb 7.5 Does not appear dyspneic at rest, Repeat labs/abg ordered, D/w intnsivist Will need IR consult CT surgery consult in am- low threshold to transfer to ICU for hemodynamic instability or worsening resp status YSIS SOCIAL WORKER * Allyn Irby PharmD - 07/25/2022 5:55 [...] Consult per Dr. Srinath IRBY, PharmD Phone: [phone] 07/25/2022 5:55 PM YSIS SOCIAL WORKER documented in this encounter H&P Notes * [...] during recuperation were discussed with the patient/family/personal sales representative uniforms. Reasonable alternatives to the patient's proposed procedure/surgery including benefits, risks, and side effects related to the alternatives and the risks related to not receiving the proposed care were also discussed with the patient/family/personal sales representative uniforms. Questions were answered and the patient /family/personal sales representative uniforms verbalized understanding and desires to proceed. Cosigned by Ross Blackburn MD at 08/03/2022 11:37 AM DIALYSIS SOCIAL WORKER YSIS SOCIAL WORKER YSIS SOCIAL WORKER Source Note - Raquel Wetzel MD - 07/26/2022 11:38 AM DIALYSIS SOCIAL WORKER [facility] Thoracic Surgery Consult Reason for consult: [...] was not improvingso he was transferred to [facility] were CT of the chest was [...] Ross Blackburn MD at 07/27/2022 6:52 AM DIALYSIS SOCIAL WORKER YSIS SOCIAL WORKER YSIS SOCIAL WORKER * Tracy Yo MD - 07/25/2022 1:55 PM CST Attending Provider: Tracy Yo,* PCP: GRACIELA LEIGH MD Ray Phillips is an 67-year-old male. Reason for Admission: Respiratory failure ([facility]) HPI: 67-year-old male with past medical history [...] loculated right pleural effusion. Upon arrival to [facility], patient reports intermittent shortness of [...] Mechanical DVT prophylaxis Tracy Yo MD 07/25/2022 YSIS SOCIAL WORKER documented in this encounter Procedure Notes * [...] sent to cytology and microbiology Kenisha Pineda YSIS SOCIAL WORKER documented in this encounter Consult Notes * [...] was not improvingso he was transferred to [facility] were CT of the chest was [...] Ross Blackburn MD at 07/27/2022 6:52 AM DIALYSIS SOCIAL WORKER YSIS SOCIAL WORKER YSIS SOCIAL WORKER * Michaelle Nielsen MD - 07/26/2022 11:23 AM CSTSummary: [facility] ID Consult Note [facility] INFECTIOUS DISEASE CONSULT NOTE Consulting Provider: Attending Provider: Florencio Amaya MD PCP: GRACIELA LEIGH MD Reason for Consultation: Loculated pleural effusions, Pneumonia History of Present Illness: Ray Phillips is a 67-year-old male with medical history of chronic tobacco use who was transferred from [facility] near [place] for treatment resistant pneumonia and loculated pleural [...] according the patient. He was transferred to [facility] for further care. He was placed [...] from [facility] near [place] for treatment resistant pneumonia and loculated pleural [...] studies independently reviewed, agree with the above. YSIS SOCIAL WORKER YSIS SOCIAL WORKER YSIS SOCIAL WORKER * Patel Kelsey MD - 07/26/2022 11:12 AM CST [facility] PULMONOLOGY CONSULT NOTE Attending Provider: Florencio Amaya MD PCP: GRACIELA LEIGH MD Reason for Admission: Respiratory failure ([facility]) Reason for Consult: Respiratory failure, necrotizing pneumonia, [...] showed what was noted above. Transferred to [facility] for further treatment. He is currently on antibiotics and steroids. He has history of smoking 1ppd for past 50 years. Never had lung cancer screening in past. Follows in [place], [place]. He quit smoking 1.5 weeks ago. He has brother with lung cancer. His mother and two sisters also had unknown cancer type. 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 He states he wore protective gear at that time. Travel to [place] in past 6 months, no other travel [...] Patti Pineda MD at 07/26/2022 12:41 PM DIALYSIS SOCIAL WORKER YSIS SOCIAL WORKER YSIS SOCIAL WORKER Associated attestation - Patti Pineda MD - 07/26/2022 12:41 PM DIALYSIS SOCIAL WORKER IKenisha MD, I was asked to see [...] arm scar from brown recluse spider bite. YSIS SOCIAL WORKER * Charlene Crow RN - 07/25/2022 6:44 [...] Will speak with nurse about further options. YSIS SOCIAL WORKER documented in this encounter OR Notes * Brief Op Note - JOSEPH Whitehead - 08/02/2022 9:28 AM CST HS Brief Op HSHSTHORACOSCOPY (VATS) WITH RIGHT DECORICATION Procedure Note Ray Phillips 08/02/2022 0730 Procedure(s) (LRB): THORACOSCOPY (VATS) WITH RIGHT DECORICATION (Right) Surgeon(s): Ross Blackburn MD Paper Carrier: Unit Support Representative: JOSEPH Whitehead Anesthesia: General Pre-Op Diagnosis: PLEURAL [...] Ross Blackburn MD at 08/03/2022 11:37 AM DIALYSIS SOCIAL WORKER YSIS SOCIAL WORKER YSIS SOCIAL WORKER * Op Note - Ross Blackburn MD - 08/02/2022 12:00 AM CST PREOPERATIVE DIAGNOSES: Trapped lung, empyema, loculated pleural effusion, pneumonia. POSTOPERATIVE DIAGNOSES: Trapped lung, empyema, loculated pleural effusion, pneumonia. PROCEDURES: Bronchoscopy, right thoracoscopy, decortication of the lung, multilevel intercostal nerve block. SURGEON: Ross Blackburn MD NEWBORN PHOTOGRAPHER: JOSEPH Flower TYPE OF ANESTHESIA: General. INDICATIONS: [...] to create a multilevel intercostal nerve block. [id number] chest tube was placed and the lung was reexpanded. The trocar sites injected with 0.25% Marcaine and closed including subcuticular skin stitches. Sterile dressings applied. Tolerated well without complication. Noted at completion of procedure, all counts were correct. #[id number] /REG/YAYA/CELESTINA YSIS SOCIAL WORKER * Brief Op Note - Raul Osuna MD - 07/27/2022 12:11 PM CST PROCEDURE: CT-guided right thoracostomy tube placement Indication: Necrotizing pneumonia with loculated hydropneumothorax Physicians: Raul Osuna M.D. (attending); Rodney Nolasco M.D. (resident) Following informed consent, including discussion of procedural risks, the patient was place in the left lateral decubitus position on the CT table and [place] protocol was observed to verify correct patient, [...] CT. The tract was dilated to 12 Somali. Duringdilation, there was temporary retraction of the [...] will be monitored to determine further management. YSIS SOCIAL WORKER documented in this encounter Plan of Treatment Pending Results Name Type Priority Associated Diagnoses Date /Time USV VAST TEAM MIDLINE INSERT >5YR US VASC STAT 07/25/2022 5:18 PM DIALYSIS SOCIAL WORKER Scheduled Orders Name Type Priority Associated Diagnoses [...] transitions and discharge planning Lifestyle Angela Pena, [employer] documented as of this encounter Procedures Procedure Name Priority Date/Time Associated Diagnosis Comments XR CHEST PA OR AP 1V Today 08/08/2022 5:37 AM DIALYSIS SOCIAL WORKER COMPREHENSIVE METABOLIC PANEL Routine 08/08/2022 2:22 AM DIALYSIS SOCIAL WORKER CBC W/DIFF AUTOMATED Routine 08/08/2022 2:22 AM DIALYSIS SOCIAL WORKER HEMOGLOBIN AND HEMATOCRIT STAT 08/07/2022 10:12 AM DIALYSIS SOCIAL WORKER XR CHEST PA OR AP 1V Today 08/07/2022 5:57 AM DIALYSIS SOCIAL WORKER HOME O2 EVAL Routine 08/06/2022 12:48 PM DIALYSIS SOCIAL WORKER XR CHEST PA OR AP 1V Today 08/06/2022 5:28 AM DIALYSIS SOCIAL WORKER COMPREHENSIVE METABOLIC PANEL Routine 08/06/2022 4:27 AM DIALYSIS SOCIAL WORKER CBC W/DIFF AUTOMATED Routine 08/06/2022 4:27 AM DIALYSIS SOCIAL WORKER VANCOMYCIN TIMED 08/06/2022 4:27 AM DIALYSIS SOCIAL WORKER HOME O2 EVAL Routine 08/05/2022 2:41 PM DIALYSIS SOCIAL WORKER TYPE & SCREEN Routine 08/05/2022 10:53 AM DIALYSIS SOCIAL WORKER XR CHEST PA OR AP 1V Today 08/05/2022 5:52 AM DIALYSIS SOCIAL WORKER COMPREHENSIVE METABOLIC PANEL Routine 08/05/2022 2:11 AM DIALYSIS SOCIAL WORKER CBC W/DIFF AUTOMATED Routine 08/05/2022 2:[address] CHEST WO CON Today 08/04/2022 3:22 PM DIALYSIS SOCIAL WORKER XR CHEST PA OR AP 1V Today 08/04/2022 5:27 AM DIALYSIS SOCIAL WORKER COMPREHENSIVE METABOLIC PANEL Routine 08/04/2022 2:34 AM DIALYSIS SOCIAL WORKER CBC W/DIFF AUTOMATED Routine 08/04/2022 2:34 AM DIALYSIS SOCIAL WORKER XR CHEST PA OR AP 1V Today 08/03/2022 5:50 AM DIALYSIS SOCIAL WORKER COMPREHENSIVE METABOLIC PANEL Routine 08/03/2022 2:22 AM DIALYSIS SOCIAL WORKER CBC W/DIFF AUTOMATED Routine 08/03/2022 2:22 AM DIALYSIS SOCIAL WORKER XR CHEST PORTABLE STAT 08/02/2022 9:5 8 AM DIALYSIS SOCIAL WORKER CULTURE, TISSUE W/GRAM STAIN Nurse Collected Priority 08/02/2022 8:38 AM DIALYSIS SOCIAL WORKER CULTURE, FUNGUS Nurse Collected Priority 08/02/2022 8:38 AM DIALYSIS SOCIAL WORKER CULTURE TB/AFB OTHER Routine 08/02/2022 8:38 AM DIALYSIS SOCIAL WORKER HC SMEAR ACID FAST/FLUOR-90 Routine 08/02/2022 8:38 AM DIALYSIS SOCIAL WORKER CULTURE, ANAEROBIC Nurse Collected Priority 08/02/2022 8:38 AM DIALYSIS SOCIAL WORKER THORACOSCOPY W DIAGNOSITC BIOPSY OF LUNG INFILTRATES 08/02/2022 7:13 AM DIALYSIS SOCIAL WORKER PLEURAL EFFUSION Case Notes PATHOLOGY Routine 08/02/2022 7:03 AM DIALYSIS SOCIAL WORKER TYPE & SCREEN Routine 08/01/2022 11:11 PM DIALYSIS SOCIAL WORKER BMP WITHOUT GLUCOSE TIMED 08/01/2022 1 1:31 AM DIALYSIS SOCIAL WORKER VANCOMYCIN TIMED 08/01/2022 11:31 AM DIALYSIS SOCIAL WORKER COMPREHENSIVE METABOLIC PANEL Routine 08/01/2022 2:42 AM DIALYSIS SOCIAL WORKER CBC W/DIFF AUTOMATED Routine 08/01/2022 2:42 AM DIALYSIS SOCIAL WORKER COMPREHENSIVE METABOLIC PANEL Routine 07/31/2022 11:[address] CHEST WO CON JAC 07/31/2022 10:22 AM DIALYSIS SOCIAL WORKER CBC W/DIFF AUTOMATED Routine 07/31/2022 9:41 AM DIALYSIS SOCIAL WORKER XR CHEST PORTABLE Routine 07/31/2022 6:0 0 AM DIALYSIS SOCIAL WORKER BRONCHOSCOPY Routine 07/30/2022 4:15 PM DIALYSIS SOCIAL WORKER CULTURE RESPIRATORY W/ GRAM STAIN TIMED 07/30/2022 3:30 PM DIALYSIS SOCIAL WORKER CULTURE, QUANTITATIVE W/ GRAM STAIN TIMED 07/30/2022 3:30 PM DIALYSIS SOCIAL WORKER CULTURE VIRAL RESPIRATORY RAPID Routine 07/30/2022 3:30 PM DIALYSIS SOCIAL WORKER CULTURE, FUNGUS TIMED 07/30/2022 3:30 PM DIALYSIS SOCIAL WORKER CULTURE HERPES Routine 07/30/2022 3:30 PM DIALYSIS SOCIAL WORKER CULTURE CMV Routine 07/30/2022 3:30 PM DIALYSIS SOCIAL WORKER CULTURE TB/AFB OTHER Routine 07/30/2022 3:30 PM DIALYSIS SOCIAL WORKER HC SMEAR ACID FAST/FLUOR-90 Routine 07/30/2022 3:30 PM DIALYSIS SOCIAL WORKER BRONCHOSCOPY DIAGNOSTIC W/WASH 07/30/2022 2:45 PM DIALYSIS SOCIAL WORKER PNEUMONIA Case Notes OC #1 07/30/22 MOVED FROM 07/[address] [facility] 07/26 @1548 SD BRONCHOSCOPY 07/30/2022 2:41 PM DIALYSIS SOCIAL WORKER VANCOMYCIN TIMED 07/30/2022 6:17 AM DIALYSIS SOCIAL WORKER XR CHEST PORTABLE Routine 07/30/2022 5:2 7 AM DIALYSIS SOCIAL WORKER CYTOLOGY GENERIC Routine 07/30/2022 12:0 0 AM DIALYSIS SOCIAL WORKER CYTOLOGY GENERIC Routine 07/30/2022 12:0 0 AM DIALYSIS SOCIAL WORKER CULTURE RESPIRATORY W/ GRAM STAIN Nurse Collected Priority 07/28/2022 2:25 PM DIALYSIS SOCIAL WORKER CULTURE, FUNGUS Nurse Collected Priority 07/28/2022 2:25 PM DIALYSIS SOCIAL WORKER US ABD LIMITED Today 07/28/2022 11:39 AM DIALYSIS SOCIAL WORKER BASIC METABOLIC PANEL Routine 07/28/2022 7:03 AM DIALYSIS SOCIAL WORKER CBC W/DIFF AUTOMATED Routine 07/28/2022 7:03 AM DIALYSIS SOCIAL WORKER VANCOMYCIN TIMED 07/28/2022 7:03 AM DIALYSIS SOCIAL WORKER XR CHEST PORTABLE JAC 07/28/2022 12: 43 AM DIALYSIS SOCIAL WORKER XR CHEST PORTABLE JAC 07/27/2022 4:2 2 PM DIALYSIS SOCIAL WORKER USE ECHOCARDIOGRAM Today 07/27/2022 1: 13 PM DIALYSIS SOCIAL WORKER IR MIDLINE PLACEMENT GREATER 3YR STAT 07/27/2022 11:[address] GD CHEST TUBE INSERT RT Today 07/27/2022 10:57 AM DIALYSIS SOCIAL WORKER LDH BODY FLUID Nurse Collected Priority 07/27/2022 10:30 AM DIALYSIS SOCIAL WORKER PROTEIN TOTAL FLUID Nurse Collected Priority 07/27/2022 10:30 AM DIALYSIS SOCIAL WORKER HC BODY FLUID CULTURE Routine 07/27/2022 10:30 AM DIALYSIS SOCIAL WORKER CULTURE, ANAEROBIC Routine 07/27/2022 10 :30 AM DIALYSIS SOCIAL WORKER CELL COUNT W/ DIFF BODY FLUID Nurse Collected Priority 07/27/2022 10:30 AM DIALYSIS SOCIAL WORKER TRANSFUSE RED BLOOD CELLS Routine 07/27/2022 4:45 AM DIALYSIS SOCIAL WORKER BMP WITHOUT GLUCOSE Routine 07/27/2022 2 :40 AM DIALYSIS SOCIAL WORKER CBC W/DIFF AUTOMATED Routine 07/27/2022 2:40 AM DIALYSIS SOCIAL WORKER HISTOPLASMA ANTIBODY PANEL Routine 07/26/2022 12:55 PM DIALYSIS SOCIAL WORKER PROCALCITONIN (PCT) Routine 07/26/2022 1 2:55 PM DIALYSIS SOCIAL WORKER HEMOGLOBIN AND HEMATOCRIT TIMED 07/26/2022 12:55 PM DIALYSIS SOCIAL WORKER BLASTOMYCES AB PANEL CF ID Routine 07/26/2022 12:55 PM DIALYSIS SOCIAL WORKER HAPTOGLOBIN, QUANT Routine 07/26/2022 9: 04 AM DIALYSIS SOCIAL WORKER BLOOD SMEAR INTERPRETATION BY Routine 07/26/2022 9:04 AM DIALYSIS SOCIAL WORKER XR CHEST PORTABLE JAC 07/26/2022 6:5 5 AM DIALYSIS SOCIAL WORKER SED RATE, ERYTHROCYTE (ESR) Routine 07/26/2022 2:38 AM DIALYSIS SOCIAL WORKER COMPREHENSIVE METABOLIC PANEL Routine 07/26/2022 2:38 AM DIALYSIS SOCIAL WORKER LDH, LACTATE DEHYDROGENASE Routine 07/26/2022 2:38 AM DIALYSIS SOCIAL WORKER C-REACTIVE PROTEIN Routine 07/26/2022 2: 38 AM DIALYSIS SOCIAL WORKER BLOOD GAS, ARTERIAL LAB STAT 07/26/2022 2:38 AM DIALYSIS SOCIAL WORKER CBC W/DIFF AUTOMATED STAT 07/26/2022 2:38 AM DIALYSIS SOCIAL WORKER CTA CHEST+ABD+PEL STAT 07/26/2022 12: 32 AM DIALYSIS SOCIAL WORKER HEMOGLOBIN AND HEMATOCRIT TIMED 07/25/2022 8:56 PM DIALYSIS SOCIAL WORKER RETICULOCYTE CT, AUTO Routine 07/25/2022 8:56 PM DIALYSIS SOCIAL WORKER HC INFECT AGENT DETECT OPTICAL Nurse Collected Priority 07/25/2022 8:31 PM DIALYSIS SOCIAL WORKER LEGIONELLA AG URINE Nurse Collected Priority 07/25/2022 8:31 PM DIALYSIS SOCIAL WORKER HIV 1 ANTIGEN(S), WITH HIV-1 AND HIV-2 ANTIBODIES Routine 07/25/2022 5:23 PM DIALYSIS SOCIAL WORKER HEMOGLOBIN AND HEMATOCRIT STAT 07/25/2022 5:23 PM DIALYSIS SOCIAL WORKER HC MYCOPLASMA AB-90 Routine 07/25/2022 5 :23 PM DIALYSIS SOCIAL WORKER TYPE & SCREEN STAT 07/25/2022 5:23 PM DIALYSIS SOCIAL WORKER PROTHROMBIN TIME, VENOUS Routine 07/25/2022 5:23 PM DIALYSIS SOCIAL WORKER LDH, LACTATE DEHYDROGENASE Routine 07/25/2022 5:23 PM DIALYSIS SOCIAL WORKER BLOOD SMEAR INTERPRETATION BY MD Routine 07/25/2022 5:23 PM DIALYSIS SOCIAL WORKER CULTURE, BACTERIA, BLOOD Routine 07/25/2022 2:17 PM DIALYSIS SOCIAL WORKER COMPREHENSIVE METABOLIC PANEL STAT 07/25/2022 2:16 PM DIALYSIS SOCIAL WORKER CULTURE, BACTERIA, BLOOD Routine 07/25/2022 2:16 PM DIALYSIS SOCIAL WORKER CBC W/DIFF AUTOMATED STAT 07/25/2022 2:16 PM DIALYSIS SOCIAL WORKER PATHOLOGY Routine 07/25/2022 12:00 AM DIALYSIS SOCIAL WORKER documented in this encounter Results * XR CHEST PA OR AP 1V (08/08/2022 5:37 AM DIALYSIS SOCIAL WORKER) Anatomical Region Laterality Modality Chest Radiographic Jasmina ging 08/08/2022 6:12 AM DIALYSIS SOCIAL WORKER Impressions 08/08/2022 6:15 AM DIALYSIS SOCIAL WORKER Impression: 1. ??Lines and tubes as described. 2. ??Persistent, but improving atelectasis in the lung bases. ??Scant effusions. Referred By: PROVIDER NON-STAFF Interpreted By: Antonio Lockett MD, 08/08/2022 6:12 AM Narrative 08/08/2022 6:15 AM DIALYSIS SOCIAL WORKER Date: 08/08/2022 5:34 AM Exam: XR CHEST [...] (ABNORMAL) COMPREHENSIVE METABOLIC PANEL (08/08/2022 2:22 AM DIALYSIS SOCIAL WORKER) Pathologist [facility] [place] SODIUM S/P/B 138 136 - 145 MMOL/L 08/08/2022 3:09 AM DIALYSIS SOCIAL WORKER [facility] POTASSIUM S/P/B 3.5 3.5 - 5.1 MMOL/L 08/08/2022 3:09 AM [facility] CHLORIDE S/P/B 105 98 - 107 MMOL/L 08/08/2022 3:09 AM [facility] CO2 28.9 21.0 - 32.0 MMOL/L 08/08/2022 3:09 AM [facility] GLUCOSE 123(H) 74 - 106 MG/DL 08/08/2022 3:09 AM [facility] BUN 9 7 - 18 MG/DL 08/08/2022 3:09 AM [facility] CREATININE S/P/B 0.66(L) 0.70 - 1.30 MG/DL 08/08/2022 3:09 AM [facility] CALCIUM S/P/B 8.1(L) 8.5 - 10.1 MG/DL 08/08/2022 3:09 AM [facility] BILIRUBIN TOTAL S/P/B 0.5 0.2 - 1.0 MG/DL 08/08/2022 3:09 AM [facility] ALKALINE PHOSPHATASE S/P/B 47 45 - 115 U/L 08/08/2022 3:09 AM [facility] AST 11(L) 15 - 37 U/L 08/08/2022 3:09 AM [facility] ALT 8(L) 16 - 61 U/L 08/08/2022 3:09 AM [facility] TOTAL PROTEIN S/P/B 5.2(L) 6.4 - 8.2 G/DL 08/08/2022 3:09 AM [facility] ALBUMIN S/P/B 1.7(L) 3.4 - 5.0 G/DL 08/08/2022 3:09 AM [facility] ANION GAP 4.1(L) 5.0 - 15.0 MMOL/L 08/08/2022 3:09 AM [facility] OSMOLALITY (CALC) 286 MOSM/KG 022 3:09 AM [facility] Comment:REFERENCE RANGE NOT ESTABLISHED GFR ESTIMATE >90 >90 ML/MIN/1. 73 M2 08/08/2022 3:09 AM [facility] GFR NOTES GFR REFERENCE S: 08/08/2022 3:09 AM DIALYSIS SOCIAL WORKER [facility] Comment: THE ESTIMATED GFR IS [...] FAILURE: <15 ml/min/1.73 m2 08/08/2022 2:22 AM DIALYSIS SOCIAL WORKER Lanre Winter MD LABORATORY Final Result [facility] [address] [place] [id number], [id number] * (ABNORMAL) CBC W/DIFF AUTOMATED (08/08/2022 2:22 AM DIALYSIS SOCIAL WORKER) WBC 3.7(L) 4.0 - 10.8 x10'3/uL 08/08/2022 2:32 AM DIALYSIS SOCIAL WORKER [facility] RBC 2.33(L) 4.50 - 6.10 x10'6/uL 08/08/2022 2:32 AM DIALYSIS SOCIAL WORKER [facility] HGB 7.4(L) 13.0 - 18.0 G/DL 08/08/2022 2:32 AM DIALYSIS SOCIAL WORKER [facility] HCT 23.7(L) 37.0 - 52.0 % 08/08/2022 2:32 AM DIALYSIS SOCIAL WORKER [facility] MCV 101.7(H) 78.0 - 100.0 FL 08/08/2022 2:32 AM DIALYSIS SOCIAL WORKER [facility] MCH 31.8(H) 27.0 - 31.0 PG 08/08/2022 2:32 AM DIALYSIS SOCIAL WORKER [facility] MCHC 31.2(L) 33.0 - 36.0 G/DL 08/08/2022 2:32 AM [facility] RDW 14.9(H) 11.5 - 14.5 % 08/08/2022 2:32 AM [facility] PLT 186 150 - 350 x10'3/uL 08/08/2022 2:32 AM [facility] MPV 10.2 7.4 - 10.4 FL 08/08/2022 2:32 AM DIALYSIS SOCIAL WORKER [facility] ABS. NEUTROPHILS 2.28 1.60 - 8.30 x10'3/uL 08/08/2022 2:32 AM [facility] ABS. LYMPHOCYTES 0.91 0.80 - 4.70 x10'3/uL 08/08/2022 2:32 AM [facility] ABS. MONOCYTES 0.40 0.00 - 1.50 x10'3/uL 08/08/2022 2:32 AM DIALYSIS SOCIAL WORKER [facility] ABS. EOSINOPHILS 0.10 0.00 - 0.40 x10'3/uL 08/08/2022 2:32 AM [facility] ABS. BASOPHILS 0.01 0.00 - 0.20 x10'3/uL 08/08/2022 2:32 AM [facility] ABS. IMMATURE GRANULOCYTES 0.02 0.00 - 0.03 x10'3/uL 08/08/2022 2:32 AM DIALYSIS SOCIAL WORKER [facility] ABS. NUCLEATED RBC'S 0.00 0.0 x10'3/uL 08/08/2022 2:32 AM [facility] 08/08/2022 2:22 AM DIALYSIS SOCIAL WORKER us Lanre Winter MD LABORATORY Final Result [facility] [address] [place] [address], [id number] * (ABNORMAL) HEMOGLOBIN AND HEMATOCRIT (08/07/2022 10:12 AM DIALYSIS SOCIAL WORKER) HGB 7.7(L) 13.0 - 18.0 G/DL 08/07/2022 10:27 AM DIALYSIS SOCIAL WORKER [facility] HCT 23.7(L) 37.0 - 52.0 % 08/07/2022 10:27 AM DIALYSIS SOCIAL WORKER [facility] 08/07/2022 10:1 2 AM DIALYSIS SOCIAL WORKER us Lanre Winter MD LABORATORY Final Result [facility] [address] [place] [address], [id number] * XR CHEST PA OR AP 1V (08/07/2022 5:57 AM DIALYSIS SOCIAL WORKER) Anatomical Region Laterality Modality Chest Radiographic Jasmina ging 08/07/2022 6:38 AM DIALYSIS SOCIAL WORKER Impressions 08/07/2022 6:41 AM DIALYSIS SOCIAL WORKER IMPRESSION: 1. Persistent bilateral pneumonia with persistent infiltrates in the lower lobes with mild bibasilar pleural effusions, again right larger than left. 2. ??Suspect a small retrocardiac hiatal hernia. Referred By: PROVIDER NON-STAFF Interpreted By: Karine Sher MD, 08/07/2022 6:38 AM Narrative 08/07/2022 6:41 AM DIALYSIS SOCIAL WORKER EXAMINATION: XR Portable CXR, 1 View INDICATION: [...] PA OR AP 1V (08/06/2022 5:28 AM DIALYSIS SOCIAL WORKER) Anatomical Region Laterality Modality Chest Radiographic Jasmina ging 08/06/2022 6:29 AM DIALYSIS SOCIAL WORKER Impressions 08/06/2022 6:32 AM DIALYSIS SOCIAL WORKER IMPRESSION: Stable chest. Referred By: PROVIDER NON-STAFF Interpreted By: Wali Gary MD, 08/06/2022 6:29 AM Narrative 08/06/2022 6:32 AM DIALYSIS SOCIAL WORKER Examination: XR CHEST PA OR AP 1V [...] * Vancomycin Random Level (08/06/2022 4:27 AM DIALYSIS SOCIAL WORKER) VANCOMYCIN RANDOM 15.7 MCG/ML 08/06/2022 5:08 AM DIALYSIS SOCIAL WORKER [facility] Comment:REFERENCE RANGE NOT ESTABLISHED 08/06/2022 4:27 AM DIALYSIS SOCIAL WORKER Lanre Winter MD LABORATORY Final Result [facility] [address] [place] [address], [id number] * (ABNORMAL) COMPREHENSIVE METABOLIC PANEL (08/06/2022 4:27 AM [facility]) SODIUM S/P/B 140 136 - 145 MMOL/L 08/06/2022 5:10 AM [facility] POTASSIUM S/P/B 3.8 3.5 - 5.1 MMOL/L 08/06/2022 5:10 AM [facility] CHLORIDE S/P/B 107 98 - 107 MMOL/L 08/06/2022 5:10 AM [facility] CO2 27.3 21.0 - 32.0 MMOL/L 08/06/2022 5:10 AM [facility] GLUCOSE 87 74 - 106 MG/DL 08/06/2022 5:10 AM [facility] BUN 8 7 - 18 MG/DL 08/06/2022 5:10 AM [facility] CREATININE S/P/B 0.61(L) 0.70 - 1.30 MG/DL 08/06/2022 5:10 AM [facility] CALCIUM S/P/B 8.0(L) 8.5 - 10.1 MG/DL 08/06/2022 5:10 AM [facility] BILIRUBIN TOTAL S/P/B 0.3 0.2 - 1.0 MG/DL 08/06/2022 5:10 AM [facility] ALKALINE PHOSPHATASE S/P/B 43(L) 45 - 115 U/L 08/06/2022 5:10 AM [facility] AST 9(L) 15 - 37 U/L 08/06/2022 5:10 AM [facility] ALT 8(L) 16 - 61 U/L 08/06/2022 5:10 AM [facility] TOTAL PROTEIN S/P/B 5.2(L) 6.4 - 8.2 G/DL 08/06/2022 5:10 AM [facility] ALBUMIN S/P/B 1.6(L) 3.4 - 5.0 G/DL 08/06/2022 5:10 AM [facility] ANION GAP 5.7 5.0 - 15.0 MMOL/L 08/06/2022 5:10 AM [facility] OSMOLALITY (CALC) 288 MOSM/KG 022 5:10 AM [facility] Comment:REFERENCE RANGE NOT ESTABLISHED GFR ESTIMATE >90 >90 ML/MIN/1. 73 M2 08/06/2022 5:10 AM [facility] GFR NOTES GFR REFERENCE S: 08/06/2022 5:10 AM [facility] Comment: THE ESTIMATED GFR IS CALCULATED [...] FAILURE: <15 ml/min/1.73 m2 08/06/2022 4:27 AM DIALYSIS SOCIAL WORKER Lanre Winter MD LABORATORY Final Result [facility] [address] [place] [address], [id number] * (ABNORMAL) CBC W/DIFF AUTOMATED (08/06/2022 4:27 AM DIALYSIS SOCIAL WORKER) WBC 5.1 4.0 - 10.8 x10'3/uL 08/06/2022 4:45 AM DIALYSIS SOCIAL WORKER [facility] RBC 2.32(L) 4.50 - 6.10 x10'6/uL 08/06/2022 4:45 AM [facility] HGB 7.6(L) 13.0 - 18.0 G/DL 08/06/2022 4:45 AM [facility] HCT 24.1(L) 37.0 - 52.0 % 08/06/2022 4:45 AM [facility] MCV 103.9(H) 78.0 - 100.0 FL 08/06/2022 4:45 AM [facility] MCH 32.8(H) 27.0 - 31.0 PG 08/06/2022 4:45 AM [facility] MCHC 31.5(L) 33.0 - 36.0 G/DL 08/06/2022 4:45 AM [facility] RDW 15.0(H) 11.5 - 14.5 % 08/06/2022 4:45 AM [facility] PLT 207 150 - 350 x10'3/uL 08/06/2022 4:45 AM [facility] MPV 10.4 7.4 - 10.4 FL 08/06/2022 4:45 AM [facility] ABS. NEUTROPHILS 3.59 1.60 - 8.30 x10'3/uL 08/06/2022 4:45 AM [facility] ABS. LYMPHOCYTES 0.90 0.80 - 4.70 x10'3/uL 08/06/2022 4:45 AM [facility] ABS. MONOCYTES 0.45 0.00 - 1.50 x10'3/uL 08/06/2022 4:45 AM [facility] ABS. EOSINOPHILS 0.09 0.00 - 0.40 x10'3/uL 08/06/2022 4:45 AM [facility] ABS. BASOPHILS 0.01 0.00 - 0.20 x10'3/uL 08/06/2022 4:45 AM [facility] ABS. IMMATURE GRANULOCYTES 0.03 0.00 - 0.03 x10'3/uL 08/06/2022 4:45 AM DIALYSIS SOCIAL WORKER [facility] ABS. NUCLEATED RBC'S 0.00 0.0 x10'3/uL 08/06/2022 4:45 AM DIALYSIS SOCIAL WORKER [facility] 08/06/2022 4:27 AM DIALYSIS SOCIAL WORKER us Lanre Winter MD LABORATORY Final Result Performing Organization Address [facility] de Phone Number [facility] [address] [place] [address], [phone] * TYPE & SCREEN (08/05/2022 10:53 AM DIALYSIS SOCIAL WORKER) ABO/RH B POSITIVE 08/05/2022 12:05 PM DIALYSIS SOCIAL WORKER [facility] ANTIBODY SCREEN NEGATIVE 08/05/2022 12:05 PM DIALYSIS SOCIAL WORKER [facility] SAMPLE EXPIRATION 08/08/2022,2 359 08/05/2022 11:06 AM DIALYSIS SOCIAL WORKER [facility] 08/05/2022 10:5 3 AM DIALYSIS SOCIAL WORKER us Lanre Winter MD BLOOD BANK TEST ORDERABLES Fin al Result Performing Organization Address [facility] de Phone Number [facility] [address] [place] [address], [id number] * XR CHEST PA OR AP 1V (08/05/2022 5:52 AM DIALYSIS SOCIAL WORKER) Anatomical Region Laterality Modality Chest Radiographic Jasmina ging 08/05/2022 7:35 AM DIALYSIS SOCIAL WORKER Impressions 08/05/2022 7:37 AM DIALYSIS SOCIAL WORKER IMPRESSION: Unchanged appearance of the chest when compared with the radiograph exam from yesterday. Ordered By: EDVIN POLLACK Interpreted By: Antonio Hill MD, 08/05/2022 7:35 AM Narrative 08/05/2022 7:37 AM DIALYSIS SOCIAL WORKER Examination: XR CHEST PA OR AP 1V, [...] (ABNORMAL) COMPREHENSIVE METABOLIC PANEL (08/05/2022 2:11 AM DIALYSIS SOCIAL WORKER) SODIUM S/P/B 136 136 - 145 MMOL/L 08/05/2022 3:20 AM DIALYSIS SOCIAL WORKER [facility] POTASSIUM S/P/B 3.4(L) 3.5 - 5.1 MMOL/L 08/05/2022 3:20 AM DIALYSIS SOCIAL WORKER [facility] CHLORIDE S/P/B 104 98 - 107 MMOL/L 08/05/2022 3:20 AM [facility] CO2 27.9 21.0 - 32.0 MMOL/L 08/05/2022 3:20 AM [facility] GLUCOSE 114(H) 74 - 106 MG/DL 08/05/2022 3:20 AM [facility] BUN 11 7 - 18 MG/DL 08/05/2022 3:20 AM [facility] CREATININE S/P/B 0.58(L) 0.70 - 1.30 MG/DL 08/05/2022 3:20 AM [facility] CALCIUM S/P/B 7.9(L) 8.5 - 10.1 MG/DL 08/05/2022 3:20 AM [facility] BILIRUBIN TOTAL S/P/B 0.4 0.2 - 1.0 MG/DL 08/05/2022 3:20 AM [facility] ALKALINE PHOSPHATASE S/P/B 39(L) 45 - 115 U/L 08/05/2022 3:20 AM [facility] AST 8(L) 15 - 37 U/L 08/05/2022 3:20 AM [facility] ALT 8(L) 16 - 61 U/L 08/05/2022 3:20 AM [facility] TOTAL PROTEIN S/P/B 4.9(L) 6.4 - 8.2 G/DL 08/05/2022 3:20 AM [facility] ALBUMIN S/P/B 1.5(L) 3.4 - 5.0 G/DL 08/05/2022 3:20 AM [facility] ANION GAP 4.1(L) 5.0 - 15.0 MMOL/L 08/05/2022 3:20 AM [facility] OSMOLALITY (CALC) 282 MOSM/KG 022 3:20 AM [facility] Comment:REFERENCE RANGE NOT ESTABLISHED GFR ESTIMATE >90 >90 ML/MIN/1. 73 M2 08/05/2022 3:20 AM DIALYSIS SOCIAL WORKER [facility] GFR NOTES GFR REFERENCE S: 08/05/2022 3:20 AM DIALYSIS SOCIAL WORKER [facility] Comment: THE ESTIMATED GFR IS [...] FAILURE: <15 ml/min/1.73 m2 08/05/2022 2:11 AM DIALYSIS SOCIAL WORKER Lanre Winter MD LABORATORY Final Result [facility] [address] [place] [address], [id number] * (ABNORMAL) CBC W/DIFF AUTOMATED (08/05/2022 2:11 AM DIALYSIS SOCIAL WORKER) WBC 6.6 4.0 - 10.8 x10'3/uL 08/05/2022 2:39 AM DIALYSIS SOCIAL WORKER [facility] RBC 2.17(L) 4.50 - 6.10 x10'6/uL 08/05/2022 2:39 AM DIALYSIS SOCIAL WORKER [facility] HGB 7.0(L) 13.0 - 18.0 G/DL 08/05/2022 2:39 AM DIALYSIS SOCIAL WORKER [facility] HCT 22.0(L) 37.0 - 52.0 % 08/05/2022 2:39 AM DIALYSIS SOCIAL WORKER [facility] MCV 101.4(H) 78.0 - 100.0 FL 08/05/2022 2:39 AM [facility] MCH 32.3(H) 27.0 - 31.0 PG 08/05/2022 2:39 AM [facility] MCHC 31.8(L) 33.0 - 36.0 G/DL 08/05/2022 2:39 AM [facility] RDW 14.7(H) 11.5 - 14.5 % 08/05/2022 2:39 AM [facility] PLT 185 150 - 350 x10'3/uL 08/05/2022 2:39 AM [facility] MPV 11.0(H) 7.4 - 10.4 FL 08/05/2022 2:39 AM [facility] ABS. NEUTROPHILS 4.78 1.60 - 8.30 x10'3/uL 08/05/2022 2:39 AM [facility] ABS. LYMPHOCYTES 1.03 0.80 - 4.70 x10'3/uL 08/05/2022 2:39 AM [facility] ABS. MONOCYTES 0.68 0.00 - 1.50 x10'3/uL 08/05/2022 2:39 AM [facility] ABS. EOSINOPHILS 0.10 0.00 - 0.40 x10'3/uL 08/05/2022 2:39 AM [facility] ABS. BASOPHILS 0.01 0.00 - 0.20 x10'3/uL 08/05/2022 2:39 AM [facility] ABS. IMMATURE GRANULOCYTES 0.03 0.00 - 0.03 x10'3/uL 08/05/2022 2:39 AM [facility] ABS. NUCLEATED RBC'S 0.00 0.0 x10'3/uL 08/05/2022 2:39 AM [facility] 08/05/2022 2:11 AM DIALYSIS SOCIAL WORKER Lanre Winter MD LABORATORY Final Result [facility] [address] [place] [address], [id number] * CT CHEST WO CON (08/04/2022 3:22 PM DIALYSIS SOCIAL WORKER) Anatomical Region Laterality Modality Chest Computed Tomogra phy 08/04/2022 3:3 5 PM DIALYSIS SOCIAL WORKER Impressions 08/04/2022 5:17 PM DIALYSIS SOCIAL WORKER IMPRESSION: 1. Interval decrease in size of [...] 08/04/2022 3:35 PM Narrative 08/04/2022 5:17 PM DIALYSIS SOCIAL WORKER EXAMINATION: CT CHEST - NON CONTRAST INDICATION: [...] PA OR AP 1V (08/04/2022 5:27 AM DIALYSIS SOCIAL WORKER) Anatomical Region Laterality Modality Chest Radiographic Jasmina ging 08/04/2022 6:43 AM DIALYSIS SOCIAL WORKER Impressions 08/04/2022 6:44 AM DIALYSIS SOCIAL WORKER IMPRESSION: ======== ?? 1. ??Increasing size of tiny right effusion with scattered right lower lung increasing infiltrates. ??Improving effusion on the left. Referred By: PROVIDER NON-STAFF Interpreted By: Mitch Carpenter MD, 08/04/2022 6:43 AM Narrative 08/04/2022 6:44 AM DIALYSIS SOCIAL WORKER Examination: Chest Radiograph, 1 view Exam Date/Time: [...] (ABNORMAL) COMPREHENSIVE METABOLIC PANEL (08/04/2022 2:34 AM DIALYSIS SOCIAL WORKER) SODIUM S/P/B 137 136 - 145 MMOL/L 08/04/2022 3:11 AM DIALYSIS SOCIAL WORKER [facility] POTASSIUM S/P/B 3.7 3.5 - 5.1 MMOL/L 08/04/2022 3:11 AM DIALYSIS SOCIAL WORKER [facility] CHLORIDE S/P/B 103 98 - 107 MMOL/L 08/04/2022 3:11 AM [facility] CO2 28.6 21.0 - 32.0 MMOL/L 08/04/2022 3:11 AM DIALYSIS SOCIAL WORKER [facility] GLUCOSE 106 74 - 106 MG/DL 08/04/2022 3:11 AM DIALYSIS SOCIAL WORKER [facility] BUN 12 7 - 18 MG/DL 08/04/2022 3:11 AM [facility] CREATININE S/P/B 0.62(L) 0.70 - 1.30 MG/DL 08/04/2022 3:11 AM [facility] CALCIUM S/P/B 7.9(L) 8.5 - 10.1 MG/DL 08/04/2022 3:11 AM [facility] BILIRUBIN TOTAL S/P/B 0.6 0.2 - 1.0 MG/DL 08/04/2022 3:11 AM [facility] ALKALINE PHOSPHATASE S/P/B 41(L) 45 - 115 U/L 08/04/2022 3:11 AM [facility] AST 11(L) 15 - 37 U/L 08/04/2022 3:11 AM [facility] ALT 11(L) 16 - 61 U/L 08/04/2022 3:11 AM [facility] TOTAL PROTEIN S/P/B 5.0(L) 6.4 - 8.2 G/DL 08/04/2022 3:11 AM [facility] ALBUMIN S/P/B 1.6(L) 3.4 - 5.0 G/DL 08/04/2022 3:11 AM [facility] ANION GAP 5.4 5.0 - 15.0 MMOL/L 08/04/2022 3:11 AM [facility] OSMOLALITY (CALC) 284 MOSM/KG 022 3:11 AM [facility] Comment:REFERENCE RANGE NOT ESTABLISHED GFR ESTIMATE >90 >90 ML/MIN/1. 73 M2 08/04/2022 3:11 AM [facility] GFR NOTES GFR REFERENCE S: 08/04/2022 3:11 AM [facility] Comment: THE ESTIMATED GFR IS CALCULATED [...] FAILURE: <15 ml/min/1.73 m2 08/04/2022 2:34 AM DIALYSIS SOCIAL WORKER Lanre Winter MD LABORATORY Final Result [facility] [address] [place] [address], [id number] * (ABNORMAL) CBC W/DIFF AUTOMATED (08/04/2022 2:34 AM DIALYSIS SOCIAL WORKER) WBC 8.5 4.0 - 10.8 x10'3/uL 08/04/2022 2:41 AM DIALYSIS SOCIAL WORKER [facility] RBC 2.39(L) 4.50 - 6.10 x10'6/uL 08/04/2022 2:41 AM DIALYSIS SOCIAL WORKER [facility] HGB 7.6(L) 13.0 - 18.0 G/DL 08/04/2022 2:41 AM DIALYSIS SOCIAL WORKER [facility] HCT 24.4(L) 37.0 - 52.0 % 08/04/2022 2:41 AM DIALYSIS SOCIAL WORKER [facility] MCV 102.1(H) 78.0 - 100.0 FL 08/04/2022 2:41 AM DIALYSIS SOCIAL WORKER [facility] MCH 31.8(H) 27.0 - 31.0 PG 08/04/2022 2:41 AM DIALYSIS SOCIAL WORKER [facility] MCHC 31.1(L) 33.0 - 36.0 G/DL 08/04/2022 2:41 AM [facility] RDW 14.8(H) 11.5 - 14.5 % 08/04/2022 2:41 AM DIALYSIS SOCIAL WORKER [facility] PLT 178 150 - 350 x10'3/uL 08/04/2022 2:41 AM [facility] MPV 10.3 7.4 - 10.4 FL 08/04/2022 2:41 AM DIALYSIS SOCIAL WORKER [facility] ABS. NEUTROPHILS 6.33 1.60 - 8.30 x10'3/uL 08/04/2022 2:41 AM DIALYSIS SOCIAL WORKER [facility] ABS. LYMPHOCYTES 1.11 0.80 - 4.70 x10'3/uL 08/04/2022 2:41 AM DIALYSIS SOCIAL WORKER [facility] ABS. MONOCYTES 0.85 0.00 - 1.50 x10'3/uL 08/04/2022 2:41 AM DIALYSIS SOCIAL WORKER [facility] ABS. EOSINOPHILS 0.14 0.00 - 0.40 x10'3/uL 08/04/2022 2:41 AM DIALYSIS SOCIAL WORKER [facility] ABS. BASOPHILS 0.01 0.00 - 0.20 x10'3/uL 08/04/2022 2:41 AM DIALYSIS SOCIAL WORKER [facility] ABS. IMMATURE GRANULOCYTES 0.05(H) 0.00 - 0.03 x10'3/uL 08/04/2022 2:41 AM DIALYSIS SOCIAL WORKER [facility] ABS. NUCLEATED RBC'S 0.00 0.0 x10'3/uL 08/04/2022 2:41 AM DIALYSIS SOCIAL WORKER [facility] 08/04/2022 2:34 AM DIALYSIS SOCIAL WORKER Lanre Winter MD LABORATORY Final Result [facility] [address] [place] [address], [id number] * XR CHEST PA OR AP 1V (08/03/2022 5:50 AM DIALYSIS SOCIAL WORKER) Anatomical Region Laterality Modality Chest Radiographic Jasmina ging 08/03/2022 9:15 AM DIALYSIS SOCIAL WORKER Impressions 08/03/2022 9:16 AM DIALYSIS SOCIAL WORKER IMPRESSION: ======== ?? Developing tiny right pleural effusion otherwise stable interval appearance of infiltrates or atelectasis in the lung bases with probable left effusion. Referred By: PROVIDER NON-STAFF Interpreted By: Mitch Carpenter MD, 08/03/2022 9:15 AM Narrative 08/03/2022 9:16 AM DIALYSIS SOCIAL WORKER Examination: Chest Radiograph, 1 view Exam Date/Time: [...] (ABNORMAL) COMPREHENSIVE METABOLIC PANEL (08/03/2022 2:22 AM DIALYSIS SOCIAL WORKER) SODIUM S/P/B 136 136 - 145 MMOL/L 08/03/2022 3:42 AM [facility] POTASSIUM S/P/B 3.8 3.5 - 5.1 MMOL/L 08/03/2022 3:42 AM [facility] CHLORIDE S/P/B 102 98 - 107 MMOL/L 08/03/2022 3:42 AM [facility] CO2 28.4 21.0 - 32.0 MMOL/L 08/03/2022 3:42 AM [facility] GLUCOSE 109(H) 74 - 106 MG/DL 08/03/2022 3:42 AM [facility] BUN 11 7 - 18 MG/DL 08/03/2022 3:42 AM [facility] CREATININE S/P/B 0.75 0.70 - 1.30 MG/DL 08/03/2022 3:42 AM [facility] CALCIUM S/P/B 8.0(L) 8.5 - 10.1 MG/DL 08/03/2022 3:42 AM [facility] BILIRUBIN TOTAL S/P/B 0.6 0.2 - 1.0 MG/DL 08/03/2022 3:42 AM [facility] ALKALINE PHOSPHATASE S/P/B 49 45 - 115 U/L 08/03/2022 3:42 AM [facility] AST 11(L) 15 - 37 U/L 08/03/2022 3:42 AM [facility] ALT 13(L) 16 - 61 U/L 08/03/2022 3:42 AM [facility] TOTAL PROTEIN S/P/B 5.4(L) 6.4 - 8.2 G/DL 08/03/2022 3:42 AM DIALYSIS SOCIAL WORKER [facility] ALBUMIN S/P/B 1.9(L) 3.4 - 5.0 G/DL 08/03/2022 3:42 AM DIALYSIS SOCIAL WORKER [facility] ANION GAP 5.6 5.0 - 15.0 MMOL/L 08/03/2022 3:42 AM [facility] OSMOLALITY (CALC) 282 MOSM/KG 022 3:42 AM [facility] Comment:REFERENCE RANGE NOT ESTABLISHED GFR ESTIMATE >90 >90 ML/MIN/1. 73 M2 08/03/2022 3:42 AM [facility] GFR NOTES GFR REFERENCE S: 08/03/2022 3:42 AM [facility] Comment: THE ESTIMATED GFR IS CALCULATED [...] FAILURE: <15 ml/min/1.73 m2 08/03/2022 2:22 AM DIALYSIS SOCIAL WORKER Lanre Winter MD LABORATORY Final Result [facility] [address] [place] [address], [id number] * (ABNORMAL) CBC W/DIFF AUTOMATED (08/03/2022 2:22 AM DIALYSIS SOCIAL WORKER) WBC 11.0(H) 4.0 - 10.8 x10'3/uL 08/03/2022 3:09 AM DIALYSIS SOCIAL WORKER [facility] RBC 2.84(L) 4.50 - 6.10 x10'6/uL 08/03/2022 3:09 AM [facility] HGB 9.2(L) 13.0 - 18.0 G/DL 08/03/2022 3:09 AM [facility] HCT 28.9(L) 37.0 - 52.0 % 08/03/2022 3:09 AM [facility] MCV 101.8(H) 78.0 - 100.0 FL 08/03/2022 3:09 AM [facility] MCH 32.4(H) 27.0 - 31.0 PG 08/03/2022 3:09 AM [facility] MCHC 31.8(L) 33.0 - 36.0 G/DL 08/03/2022 3:09 AM [facility] RDW 15.1(H) 11.5 - 14.5 % 08/03/2022 3:09 AM [facility] PLT 216 150 - 350 x10'3/uL 08/03/2022 3:09 AM [facility] MPV 10.8(H) 7.4 - 10.4 FL 08/03/2022 3:09 AM [facility] ABS. NEUTROPHILS 8.98(H) 1.60 - 8.30 x10'3/uL 08/03/2022 3:09 AM [facility] ABS. LYMPHOCYTES 0.81 0.80 - 4.70 x10'3/uL 08/03/2022 3:09 AM [facility] ABS. MONOCYTES 1.00 0.00 - 1.50 x10'3/uL 08/03/2022 3:09 AM [facility] ABS. EOSINOPHILS 0.12 0.00 - 0.40 x10'3/uL 08/03/2022 3:09 AM [facility] ABS. BASOPHILS 0.01 0.00 - 0.20 x10'3/uL 08/03/2022 3:09 AM DIALYSIS SOCIAL WORKER [facility] ABS. IMMATURE GRANULOCYTES 0.08(H) 0.00 - 0.03 x10'3/uL 08/03/2022 3:09 AM DIALYSIS SOCIAL WORKER [facility] ABS. NUCLEATED RBC'S 0.00 0.0 x10'3/uL 08/03/2022 3:09 AM DIALYSIS SOCIAL WORKER [facility] 08/03/2022 2:22 AM DIALYSIS SOCIAL WORKER Lanre Winter MD LABORATORY Final Result [facility] [address] [place] [address], [id number] * XR CHEST PORTABLE (08/02/2022 9:58 AM DIALYSIS SOCIAL WORKER) Anatomical Region Laterality Modality Chest Radiographic Jasmina ging 08/02/2022 10:5 5 AM DIALYSIS SOCIAL WORKER Impressions 08/02/2022 10:57 AM DIALYSIS SOCIAL WORKER IMPRESSION: 1. Unchanged bibasilar opacities. Ordered By: EDVIN POLLACK Interpreted By: Atilio Read MD, 08/02/2022 10:55 AM Narrative 08/02/2022 10:57 AM DIALYSIS SOCIAL WORKER Examination: X-ray chest, 1 view Exam time: [...] * SMEAR,FLUOR STAIN,ACID FAST (08/02/2022 8:38 AM DIALYSIS SOCIAL WORKER) ACID FAST SMEAR RESULT SEE NOTE 07:45 PM 08/05/2022 7:45 PM DIALYSIS SOCIAL WORKER [facility] Comment: Test ?Result ??Flag ??Unit ??RefValue Acid Fast Smear For Mycobacterium SOURCE: LUNG, RIGHT, RT DECORTICATION TIS ACID FAST SMEAR FOR MYCOBACTERIUM ?FINAL Negative. Test Performed by: [address] [address] Power Plant Operator Apprentice: Brent Alcaraz M.D. Ph.D.; CLIA# [id number] 08/02/2022 8:38 AM DIALYSIS SOCIAL WORKER us Ross Blackburn MD MICROBIOLOGY - GENERAL OR DERABLES Final Result [facility] [address] [place] [address] * CULTURE, TISSUE W/GRAM STAIN (08/02/2022 8:38 AM DIALYSIS SOCIAL WORKER) SPEC DESCRIPTION TISSUE: RT DECORTICATION TISU 08/02/2022 8:43 AM DIALYSIS SOCIAL WORKER [facility] SPECIAL REQUESTS NO SPECIAL REQUEST 08/02/2022 8:43 AM [facility] GRAM STAIN RESULT MODERATE NEUTROPHILS SEEN 08/02/2022 4:02 PM [facility] GRAM STAIN RESULT NO ORGANISMS SEEN 08/02/2022 4:02 PM [facility] CULTURE RESULT NO GROWTH 5 DAYS 01/2022 11:36 AM [facility] TISSUE TISSUE SPECIMEN / Unknown 08/02/2022 8:38 AM DIALYSIS SOCIAL WORKER us Ross Blackburn MD MICROBIOLOGY - GENERAL OR DERABLES Final Result Performing Organization Address City/State/[facility] Co de Phone Number [facility] [address] [place] [address], [id number] * CULTURE, FUNGUS (08/02/2022 8:38 AM DIALYSIS SOCIAL WORKER) SOURCE (PURDIN) TISSUE 08/02/2022 10:10 AM DIALYSIS SOCIAL WORKER [facility] Comment:RT DECORTICATION TIS U CULTURE RESULT SEE NOTE 08/29/2022 01:03 AM 08/29/2022 1:03 AM DIALYSIS SOCIAL WORKER [facility] Comment: Test ?Result ?Flag ??Unit ??RefValue Fungal Culture, Routine ? SOURCE: LUNG, RIGHT, TISSUE RT DECORTICATION TISU FUNGAL CULTURE, ROUTINE ?FINAL No growth after 24 days of incubation. Test Performed by: [facility] [address] [place] [address] Power Plant Operator Apprentice: Brent Alcaarz M.D. Ph.D.; CLIA# [id number] TISSUE (OTHER (type in comments)) 08/02/2022 8:38 AM DIALYSIS SOCIAL WORKER us Ross Blackburn MD MICROBIOLOGY - GENERAL OR DERABLES Final Result [facility] [address] [place] [address] [facility] [place] [address], [id number] * CULTURE TB/AFB OTHER (TYPE IN COMMENTS) (08/02/2022 8:38 AM DIALYSIS SOCIAL WORKER) SOURCE (PURDIN) TISSUE 08/02/2022 10:09 AM DIALYSIS SOCIAL WORKER [facility] Comment:RT DECORTICATION TIS U CULTURE RESULT SEE NOTE 09/16/2022 01:03 AM 09/16/2022 1:03 AM DIALYSIS SOCIAL WORKER [facility] Comment: Test ?Result ?Flag ??Unit ??RefValue Mycobacterial Culture ? SOURCE: LUNG, RIGHT, TISSUE RT DECORTICATION TISU MYCOBACTERIAL CULTURE ?FINAL No growth after 42 days of incubation. Test Performed by: [facility] [address] [place] [address] Power Plant Operator Apprentice: Brent Alcaraz M.D. Ph.D.; [facility]# [id number] TISSUE (OTHER (type in comments)) 08/02/2022 8:38 AM DIALYSIS SOCIAL WORKER us Ross Blackburn MD MICROBIOLOGY - GENERAL OR DERABLES Final Result Performing Organization Address [facility] de Phone Number [facility] [address] [place] [address] [facility] [address] [place] [address], [phone] * CULTURE, ANAEROBIC (08/02/2022 8:38 AM DIALYSIS SOCIAL WORKER) SPEC DESCRIPTION TISSUE: RT DECORTICATION TISU 08/02/2022 8:43 AM DIALYSIS SOCIAL WORKER [facility] SPECIAL REQUESTS NO SPECIAL REQUEST 08/02/2022 8:43 AM DIALYSIS SOCIAL WORKER [facility] CULTURE RESULT NO ANAEROBES ISOLATED 08/07/2022 9:10 AM DIALYSIS SOCIAL WORKER [facility] TISSUE TISSUE SPECIMEN / Unknown 08/02/2022 8:38 AM DIALYSIS SOCIAL WORKER Ross Blackburn MD MICROBIOLOGY - GENERAL OR DERABLES Final Result Performing Organization Address [facility] de Phone Number [facility] [address] [place] [address], [place] [phone] * Pathology (08/02/2022 7:03 AM DIALYSIS SOCIAL WORKER) PATHOLOGY [facility] ? Department of Laboratory Medicine ?[address] ?[place] [address] ? , extension [phone] ? Pathology Report ? Surgical Pathology Report Name: RAY PHILLIPS ? Specimen #: [id number] Age: 9 1955 (Age: 67) ? Location: [facility] Sex: M ?Procedure Date: 08/02/2022 Hospital #: [id number] ?Date Received: 08/02/2022 Date Reported: 08/07/2022 Provider: ROSS BLACKBURN MD Source: Pleural peel, right Clinical History: Pleural effusion Gross Description: Received in formalin, labeled with a patient label and as right lung decortication tissue are multiple pieces and fragments of edematous pale [id number] tissue. ??Some of the pieces exhibit some hemorrhagic areas. The pieces are 6 x 4 x 1.0 cm in aggregate. ??Intelligence Support Officer tissue is submitted in cassettes 1-4. Gross examination (when applicable), interpretation and sign-out were performed at [facility], [address] [facility], [place], [place], [address]. FINAL DIAGNOSIS: PLEURAL PEEL, RIGHT: ? - CONSISTENT WITH ACUTE FIBRINOUS PLEURITIS. IC: CBG Electronically Signed Out ? GADIEL HANSON MD [facility] TISSUE (OTHER (type in comments)) 08/02/2022 7:03 AM DIALYSIS SOCIAL WORKER Ross Blackburn MD PATHOLOGY/CYTOLOGY ORDERA BLES Final Result Performing Organization Address [facility] de Phone Number [facility] [address] [place] [address], [phone] * TYPE & SCREEN (08/01/2022 11:11 PM DIALYSIS SOCIAL WORKER) ABO/RH B POSITIVE 08/02/2022 12:25 AM DIALYSIS SOCIAL WORKER [facility] ANTIBODY SCREEN NEGATIVE 08/02/2022 12:25 AM DIALYSIS SOCIAL WORKER [facility] SAMPLE EXPIRATION 08/04/2022,2 359 08/01/2022 11:27 PM DIALYSIS SOCIAL WORKER [facility] 08/01/2022 11:1 1 PM DIALYSIS SOCIAL WORKER Ross Blackburn MD BLOOD BANK TEST ORDERABLE S Final Result Performing Organization Address [facility] de Phone Number [facility] [address] [place] [address], [place] [phone] * (ABNORMAL) BMP WITHOUT GLUCOSE (08/01/2022 11:31 AM DIALYSIS SOCIAL WORKER) SODIUM S/P/B 138 136 - 145 MMOL/L 08/01/2022 12:12 PM DIALYSIS SOCIAL WORKER [facility] POTASSIUM S/P/B 3.9 3.5 - 5.1 MMOL/L 08/01/2022 12:12 PM [facility] CHLORIDE S/P/B 107 98 - 107 MMOL/L 08/01/2022 12:12 PM [facility] CO2 24.1 21.0 - 32.0 MMOL/L 08/01/2022 12:12 PM [facility] BUN 16 7 - 18 MG/DL 08/01/2022 12:12 PM [facility] CREATININE S/P/B 0.70 0.70 - 1.30 MG/DL 08/01/2022 12:12 PM [facility] CALCIUM S/P/B 7.9(L) 8.5 - 10.1 MG/DL 08/01/2022 12:12 PM [facility] ANION GAP 6.9 5.0 - 15.0 MMOL/L 08/01/2022 12:12 PM [facility] GFR ESTIMATE >90 >90 ML/MIN/1. 73 M2 08/01/2022 12:12 PM [facility] GFR NOTES GFR REFERENCE S: 08/01/2022 12:12 PM [facility] Comment: THE ESTIMATED GFR IS CALCULATED [...] <15 ml/min/1.73 m2 08/01/2022 11:3 1 AM DIALYSIS SOCIAL WORKER us Florencio Amaya MD LABORATORY Final Result [facility] [address] [place] [address], [place] [phone] * Vancomycin Random Level (08/01/2022 11:31 AM DIALYSIS SOCIAL WORKER) Pathologist [facility] [place] VANCOMYCIN RANDOM 18.7 MCG/ML 08/01/2022 12:30 PM [facility] 08/01/2022 11:3 1 AM DIALYSIS SOCIAL WORKER Florencio Amaya MD LABORATORY Final Result [facility] [address] [place] [address], [phone] * (ABNORMAL) COMPREHENSIVE METABOLIC PANEL (08/01/2022 2:42 AM DIALYSIS SOCIAL WORKER) Pathologist [facility] [place] SODIUM S/P/B 140 136 - 145 MMOL/L 08/01/2022 4:00 AM [facility] POTASSIUM S/P/B 3.4(L) 3.5 - 5.1 MMOL/L 08/01/2022 4:00 AM [facility] CHLORIDE S/P/B 107 98 - 107 MMOL/L 08/01/2022 4:00 AM [facility] CO2 27.2 21.0 - 32.0 MMOL/L 08/01/2022 4:00 AM [facility] GLUCOSE 145(H) 74 - 106 MG/DL 08/01/2022 4:00 AM [facility] BUN 19(H) 7 - 18 MG/DL 08/01/2022 4:00 AM [facility] CREATININE S/P/B 0.77 0.70 - 1.30 MG/DL 08/01/2022 4:00 AM [facility] CALCIUM S/P/B 8.1(L) 8.5 - 10.1 MG/DL 08/01/2022 4:00 AM [facility] BILIRUBIN TOTAL S/P/B 0.4 0.2 - 1.0 MG/DL 08/01/2022 4:00 AM [facility] ALKALINE PHOSPHATASE S/P/B 50 45 - 115 U/L 08/01/2022 4:00 AM [facility] AST 8(L) 15 - 37 U/L 08/01/2022 4:00 AM [facility] ALT 14(L) 16 - 61 U/L 08/01/2022 4:00 AM [facility] TOTAL PROTEIN S/P/B 5.0(L) 6.4 - 8.2 G/DL 08/01/2022 4:00 AM [facility] ALBUMIN S/P/B 1.7(L) 3.4 - 5.0 G/DL 08/01/2022 4:00 AM [facility] ANION GAP 5.8 5.0 - 15.0 MMOL/L 08/01/2022 4:00 AM [facility] OSMOLALITY (CALC) 295 MOSM/KG 022 4:00 AM [facility] Comment:REFERENCE RANGE NOT ESTABLISHED GFR ESTIMATE >90 >90 ML/MIN/1. 73 M2 08/01/2022 4:00 AM [facility] GFR NOTES GFR REFERENCE S: 08/01/2022 4:00 AM [facility] Comment: THE ESTIMATED GFR IS CALCULATED [...] FAILURE: <15 ml/min/1.73 m2 08/01/2022 2:42 AM [employer] Lanre Winter MD LABORATORY Final Result [facility] [address] [place] [address], [id number] * (ABNORMAL) CBC W/DIFF AUTOMATED (08/01/2022 2:42 AM [employer]) WBC 11.1(H) 4.0 - 10.8 x10'3/uL 08/01/2022 3:32 AM [employer] [facility] RBC 2.58(L) 4.50 - 6.10 x10'6/uL 08/01/2022 3:32 AM [facility] HGB 8.6(L) 13.0 - 18.0 G/DL 08/01/2022 3:32 AM [facility] HCT 26.4(L) 37.0 - 52.0 % 08/01/2022 3:32 AM [facility] MCV 102.3(H) 78.0 - 100.0 FL 08/01/2022 3:32 AM [employer] [facility] MCH 33.3(H) 27.0 - 31.0 PG 08/01/2022 3:32 AM [facility] MCHC 32.6(L) 33.0 - 36.0 G/DL 08/01/2022 3:32 AM [facility] RDW 15.4(H) 11.5 - 14.5 % 08/01/2022 3:32 AM [employer] [facility] PLT 246 150 - 350 x10'3/uL 08/01/2022 3:32 AM [employer] [facility] MPV 10.4 7.4 - 10.4 FL 08/01/2022 3:32 AM [facility] ABS. NEUTROPHILS 8.96(H) 1.60 - 8.30 x10'3/uL 08/01/2022 3:32 AM [facility] ABS. LYMPHOCYTES 1.27 0.80 - 4.70 x10'3/uL 08/01/2022 3:32 AM [employer] [facility] ABS. MONOCYTES 0.60 0.00 - 1.50 x10'3/uL 08/01/2022 3:32 AM [employer] [facility] ABS. EOSINOPHILS 0.12 0.00 - 0.40 x10'3/uL 08/01/2022 3:32 AM [employer] [facility] ABS. BASOPHILS 0.01 0.00 - 0.20 x10'3/uL 08/01/2022 3:32 AM [facility] ABS. IMMATURE GRANULOCYTES 0.14(H) 0.00 - 0.03 x10'3/uL 08/01/2022 3:32 AM [facility] ABS. NUCLEATED RBC'S 0.00 0.0 x10'3/uL 08/01/2022 3:32 AM [facility] 08/01/2022 2:42 AM [employer] Lanre Winter MD LABORATORY Final Result [facility] [address] [id number], [id number] * (ABNORMAL) COMPREHENSIVE METABOLIC PANEL (07/31/2022 11:13 AM [employer]) SODIUM S/P/B 137 136 - 145 MMOL/L 07/31/2022 11:54 AM [facility] POTASSIUM S/P/B 3.6 3.5 - 5.1 MMOL/L 07/31/2022 11:54 AM [facility] CHLORIDE S/P/B 104 98 - 107 MMOL/L 07/31/2022 11:54 AM [facility] CO2 27.8 21.0 - 32.0 MMOL/L 07/31/2022 11:54 AM [facility] GLUCOSE 106 74 - 106 MG/DL 07/31/2022 11:54 AM [facility] BUN 20(H) 7 - 18 MG/DL 07/31/2022 11:54 AM [facility] CREATININE S/P/B 0.74 0.70 - 1.30 MG/DL 07/31/2022 11:54 AM [facility] CALCIUM S/P/B 8.1(L) 8.5 - 10.1 MG/DL 07/31/2022 11:54 AM [facility] BILIRUBIN TOTAL S/P/B 0.3 0.2 - 1.0 MG/DL 07/31/2022 11:54 AM [facility] ALKALINE PHOSPHATASE S/P/B 54 45 - 115 U/L 07/31/2022 11:54 AM [facility] AST 8(L) 15 - 37 U/L 07/31/2022 11:54 AM [facility] ALT 15(L) 16 - 61 U/L 07/31/2022 11:54 AM [facility] TOTAL PROTEIN S/P/B 5.6(L) 6.4 - 8.2 G/DL 07/31/2022 11:54 AM [facility] ALBUMIN S/P/B 1.9(L) 3.4 - 5.0 G/DL 07/31/2022 11:54 AM [facility] ANION GAP 5.2 5.0 - 15.0 MMOL/L 07/31/2022 11:54 AM [facility] OSMOLALITY (CALC) 287 MOSM/KG 022 11:54 AM [facility] Comment:REFERENCE RANGE NOT ESTABLISHED GFR ESTIMATE >90 >90 ML/MIN/1. 73 M2 07/31/2022 11:54 AM [facility] GFR NOTES GFR REFERENCE S: 07/31/2022 11:54 AM [facility] Comment: THE ESTIMATED GFR IS CALCULATED [...] <15 ml/min/1.73 m2 07/31/2022 11:1 3 AM [employer] Lanre Winter MD LABORATORY Final Result Performing Organization Address City/State/[facility] Co de Phone Number [facility] [address] [place] [address], [phone] * CT CHEST WO CON (07/31/2022 10:22 AM DIALYSIS SOCIAL WORKER) Anatomical Region Laterality Modality Chest Computed Tomogra phy 07/31/2022 1:56 PM DIALYSIS SOCIAL WORKER Impressions 07/31/2022 2:07 PM DIALYSIS SOCIAL WORKER IMPRESSION: 1. Focal loculated hydropneumothorax, right posterior [...] 07/31/2022 1:56 PM Narrative 07/31/2022 2:07 PM DIALYSIS SOCIAL WORKER EXAMINATION: CT Chest without contrast DATE: 07/31/2022 [...] (ABNORMAL) CBC W/DIFF AUTOMATED (07/31/2022 9:41 AM DIALYSIS SOCIAL WORKER) WBC 16.2(H) 4.0 - 10.8 x10'3/uL 07/31/2022 9:55 AM DIALYSIS SOCIAL WORKER [facility] RBC 3.07(L) 4.50 - 6.10 x10'6/uL 07/31/2022 9:55 AM DIALYSIS SOCIAL WORKER [facility] HGB 10.1(L) 13.0 - 18.0 G/DL 07/31/2022 9:55 AM DIALYSIS SOCIAL WORKER [facility] HCT 31.0(L) 37.0 - 52.0 % 07/31/2022 9:55 AM DIALYSIS SOCIAL WORKER [facility] MCV 101.0(H) 78.0 - 100.0 FL 07/31/2022 9:55 AM DIALYSIS SOCIAL WORKER [facility] MCH 32.9(H) 27.0 - 31.0 PG 07/31/2022 9:55 AM DIALYSIS SOCIAL WORKER [facility] MCHC 32.6(L) 33.0 - 36.0 G/DL 07/31/2022 9:55 AM DIALYSIS SOCIAL WORKER [facility] RDW 15.3(H) 11.5 - 14.5 % 07/31/2022 9:55 AM [facility] PLT 277 150 - 350 x10'3/uL 07/31/2022 9:55 AM [facility] MPV 10.4 7.4 - 10.4 FL 07/31/2022 9:55 AM DIALYSIS SOCIAL WORKER [facility] ABS. NEUTROPHILS 14.00(H) 1.60 - 8.30 x10'3/uL 07/31/2022 9:55 AM DIALYSIS SOCIAL WORKER [facility] ABS. LYMPHOCYTES 1.26 0.80 - 4.70 x10'3/uL 07/31/2022 9:55 AM DIALYSIS SOCIAL WORKER [facility] ABS. MONOCYTES 0.59 0.00 - 1.50 x10'3/uL 07/31/2022 9:55 AM DIALYSIS SOCIAL WORKER [facility] ABS. EOSINOPHILS 0.01 0.00 - 0.40 x10'3/uL 07/31/2022 9:55 AM DIALYSIS SOCIAL WORKER [facility] ABS. BASOPHILS 0.02 0.00 - 0.20 x10'3/uL 07/31/2022 9:55 AM [facility] ABS. IMMATURE GRANULOCYTES 0.36(H) 0.00 - 0.03 x10'3/uL 07/31/2022 9:55 AM DIALYSIS SOCIAL WORKER [facility] ABS. NUCLEATED RBC'S 0.03(H) 0.0 x10'3/uL 07/31/2022 9:55 AM DIALYSIS SOCIAL WORKER [facility] 07/31/2022 9:41 AM DIALYSIS SOCIAL WORKER us Lanre Winter MD LABORATORY Final Result [facility] [address] [place] [address], [id number] * XR CHEST PORTABLE (07/31/2022 6:00 AM DIALYSIS SOCIAL WORKER) Anatomical Region Laterality Modality Chest Radiographic Jasmina ging 07/31/2022 9:13 AM DIALYSIS SOCIAL WORKER Impressions 07/31/2022 9:17 AM DIALYSIS SOCIAL WORKER IMPRESSION: 1. Right-sided chest remains in place. [...] 07/31/2022 9:13 AM Narrative 07/31/2022 9:17 AM DIALYSIS SOCIAL WORKER EXAM DESCRIPTION: Chest 1 view EXAM TIME [...] Res ult * Bronchoscopy (07/30/2022 4:15 PM DIALYSIS SOCIAL WORKER) Narrative Procedure Note Patti Pineda MD - [...] CULTURE VIRAL RESPIRATORY RAPID (07/30/2022 3:30 PM DIALYSIS SOCIAL WORKER) VIRAL RESP RAPID CULTURE W/RFX REPORT 08/05/2022 3:21 PM DIALYSIS SOCIAL WORKER [employer] MATHIEU GARNETT Comment: Respiratory Culture Screen SOURCE : BWASH/BAL MIX IN RESULT ?Negative for Influenza virus, types A and B, Parainfluenza viruses 1,2 # 3, Adenovirus, and Respiratory Syncytial virus. Reference range: Negative Rapid Respiratory Viruses ? Not indicated Test Performed by Javier Benítez, [employer] [facility], [address] [place] [address] Adrián Balderas M.D., Ph.D., Director of Laboratories , CLIA [id number] SPECIMEN TYPE BWASH/BAL MIX IN [place] 1 TO 1 RATIO, FRZ NEG 70 07/31/2022 2:35 PM DIALYSIS SOCIAL WORKER [facility] 07/30/2022 3:30 PM DIALYSIS SOCIAL WORKER Patti Pineda MD MICROBIOLOGY - GENERAL ORDERABLES Final Result Performing Organization Address [facility] Co de Phone Number [facility] [address] [place] [address], [place] [phone] [id number] , * CULTURE HERPES (07/30/2022 3:30 PM DIALYSIS SOCIAL WORKER) [facility] HERPES SIMPLEX VIRUS CULTURE REPORT 08/03/2022 3:42 PM DIALYSIS SOCIAL WORKER edupristine [facility] Comment: Herpes Simplex Virus Culture SOURCE : BAL/BWASH MIX IN RESULT ?Not Isolated ?Reference Range: Not Isolated Test Performed by Javier Benítez, [facility], [address] [place] [address] Adrián Balderas M.D., Ph.D., Director of Laboratories , CLIA [id number] SPECIMEN TYPE BAL/BWASH MIX IN [facility] 1 TO 1 RATIO, FRZ NEG 70 07/31/2022 2:32 PM DIALYSIS SOCIAL WORKER [facility] 07/30/2022 3:30 PM DIALYSIS SOCIAL WORKER Patti Pineda MD MICROBIOLOGY - GENERAL ORDERABLES Final Result Performing Organization Address City/[facility]/ZIP Co de Phone Number [facility] [address] [place] [address], [id number] edupristine [address] , [place] [phone] * CULTURE CMV (07/30/2022 3:30 PM DIALYSIS SOCIAL WORKER) [facility] CYTOMEGALOVIRUS CULTURE REPORT 08/06/2022 5:37 PM DIALYSIS SOCIAL WORKER [facility]upristine [facility] Comment: CMV Rapid Culture SOURCE : BAL RESULT ?Not Isolated ? Reference Range: Not Isolated Test Performed by Javier Benítez [facility], [address] [place] [address] Adrián Balderas M.D., Ph.D., Director of Laboratories , [facility] [id number] SPECIMEN SOURCE BAL/BWASH MIX IN VTM 1 TO 1 RATIO, FRZ NEG 70 07/31/2022 2:31 PM DIALYSIS SOCIAL WORKER [facility] 07/30/2022 3:30 PM DIALYSIS SOCIAL WORKER [facility] Edward Pineda MD MICROBIOLOGY - GENERAL ORDERABLES Final Result Performing Organization Address [facility]/ZIP Co de Phone Number [facility] [address] [place] [address], [place] [phone] , [place] [phone] * CULTURE, QUANTITATIVE W/ GRAM STAIN (07/30/2022 3:30 PM DIALYSIS SOCIAL WORKER) [facility] SPEC DESCRIPTION SITE: BAL RLL 07/30/2022 5:04 PM DIALYSIS SOCIAL WORKER [facility] SPECIAL REQUESTS NO SPECIAL REQUEST 07/30/2022 5:04 PM [facility] GRAM STAIN RESULT <10 NEUTROPHILS PER LPF 07/31/2022 4:41 AM [facility] GRAM STAIN RESULT <10 EPITHELIAL CELLS PER LPF 07/31/2022 4:41 AM [facility] GRAM STAIN RESULT RARE GRAM NEGATIVE RODS 07/31/2022 4:41 AM [facility] CULTURE RESULT 500 CFU/ML YEAST , ID UPON REQUEST 08/02/2022 2:57 PM [facility] SPECIMEN FROM UNSPECIFIED BODY SITE / Unknown 07/30/2022 3:30 PM DIALYSIS SOCIAL WORKER 07/30/2022 5:03 PM DIALYSIS SOCIAL WORKER Comment:BAL RLL Florencio Amaya MD MICROBIOLOGY - GENERAL ORDERABLE S Final Result [facility] [address] [place] [address], [id number] * CULTURE TB/AFB OTHER (07/30/2022 3:30 PM DIALYSIS SOCIAL WORKER) Pathologist [facility] [place] SOURCE (PURDIN) SITE 07/30/2022 5:03 PM [facility] Comment:BRONCH WASH CULTURE RESULT SEE NOTE 3 01:04 AM 09/13/2022 1:04 AM DIALYSIS SOCIAL WORKER [facility] Comment: Test ?Result ?Flag ??Unit ??RefValue Mycobacterial Culture ? SOURCE: BRONCHIAL WASHING, SITE BRONCH WASH MYCOBACTERIAL CULTURE ?FINAL No growth after 42 days of incubation. Test Performed by: [place] [address] Power Plant Operator Apprentice: Brent Alcaraz M.D. Ph.D.; CLIA# [id number] 07/30/2022 3:30 PM DIALYSIS SOCIAL WORKER Florencio Amaya MD MICROBIOLOGY - GENERAL ORDERABLE S Final Result Performing Organization Address [facility] de Phone Number [facility] [address] [place] [address], [id number] * SMEAR,FLUOR STAIN,ACID FAST (07/30/2022 3:30 PM DIALYSIS SOCIAL WORKER) ACID FAST SMEAR RESULT SEE NOTE 11:18 PM 08/01/2022 11:18 PM DIALYSIS SOCIAL WORKER [facility] Comment: Test ?Result ??Flag ??Unit ??RefValue Acid Fast Smear For Mycobacterium SOURCE: BRONCHIAL WASHING, BWASH/BAL MIX ACID FAST SMEAR FOR MYCOBACTERIUM ?FINAL Negative. Test Performed by: [place] [address] Power Plant Operator Apprentice: Brent Alcaraz M.D. Ph.D.; CLIA# [id number] 07/30/2022 3:30 PM DIALYSIS SOCIAL WORKER Florencio Amaya MD MICROBIOLOGY - GENERAL ORDERABLE S Final Result Performing Organization Address [facility]/ZIP Co de Phone Number [facility] [address] [place] [address] * CULTURE RESPIRATORY W/ GRAM STAIN (07/30/2022 3:30 PM DIALYSIS SOCIAL WORKER) SPEC DESCRIPTION SITE: BRONCH WASH 07/30/2022 5:01 PM DIALYSIS SOCIAL WORKER [facility] SPECIAL REQUESTS NO SPECIAL REQUEST 07/30/2022 5:01 PM DIALYSIS SOCIAL WORKER [facility] GRAM STAIN RESULT MANY NEUTROPHILS SEEN 07/30/2022 8:16 PM DIALYSIS SOCIAL WORKER [facility] GRAM STAIN RESULT NO ORGANISMS SEEN 07/30/2022 8:16 PM DIALYSIS SOCIAL WORKER [facility] CULTURE RESULT FEW TETE ALBICANS 08/03/2022 12:28 PM DIALYSIS SOCIAL WORKER [facility] SPECIMEN FROM UNSPECIFIED BODY SITE / Unknown 07/30/2022 3:30 PM DIALYSIS SOCIAL WORKER 07/30/2022 5:00 PM DIALYSIS SOCIAL WORKER Comment:BRONCH WASH Florencio Amaya MD MICROBIOLOGY - GENERAL ORDERABLE S Final Result Performing Organization Address City/[facility] Co de Phone Number [facility] [address] [place] [address], [id number] * (ABNORMAL) CULTURE, FUNGUS (07/30/2022 3:30 PM DIALYSIS SOCIAL WORKER) SOURCE (PURDIN) SITE 07/30/2022 5:01 PM DIALYSIS SOCIAL WORKER [facility] Comment:BRONCH WASH CULTURE RESULT SEE NOTE 08:01 AM(A) 08/28/2022 8:01 AM DIALYSIS SOCIAL WORKER [facility] [address] Comment: Test ?Result ?Flag ??Unit ??RefValue Fungal Culture, Routine ?A ? SOURCE: BRONCHIAL WASHING, SITE BRONCH WASH FUNGAL CULTURE, ROUTINE ?FINAL TETE ALBICANS ? Many NAKASEOMYCES (TETE) GLABRATA ??Few Test Performed by: [place] [address] Power Plant Operator Apprentice: Brent Alcaraz M.D. Ph.D.; CLIA# [id number] 07/30/2022 3:30 PM DIALYSIS SOCIAL WORKER us Florencio Amaya MD MICROBIOLOGY - GENERAL ORDERABLE S Final Result Performing Organization Address [facility] de Phone Number [facility] [address] [facility] [address] [place] [address], [place] [phone] * Bronchoscopy (07/30/2022 2:41 PM DIALYSIS SOCIAL WORKER) us Patti Pineda MD PROCEDURE/MINOR SURGIC AL ORDERABLES Final Result * Vancomycin Random Level (07/30/2022 6:17 AM DIALYSIS SOCIAL WORKER) VANCOMYCIN RANDOM 24.4 MCG/ML 07/30/2022 7:34 AM DIALYSIS SOCIAL WORKER [facility] Comment:REFERENCE RANGE NOT ESTABLISHED 07/30/2022 6:17 AM DIALYSIS SOCIAL WORKER us Florencio Amaya MD LABORATORY Final Result Performing Organization Address [facility] de Phone Number [facility] [address] [place] [address], [place] [phone] * XR CHEST PORTABLE (07/30/2022 5:27 AM DIALYSIS SOCIAL WORKER) Anatomical Region Laterality Modality Chest Radiographic Jasmina ging 07/30/2022 8:33 AM DIALYSIS SOCIAL WORKER Impressions 07/30/2022 8:37 AM DIALYSIS SOCIAL WORKER IMPRESSION: 1) Interval decrease in small left pleural effusion and left basilar consolidation. No other significant change. Ordered By: RODNEY NOLASCO Interpreted By: Nigel Peña MD, 07/30/2022 8:33 AM Narrative 07/30/2022 8:37 AM DIALYSIS SOCIAL WORKER Examination: XR CHEST PORTABLE Exam time: 07/30/2022 [...] ult * CYTOLOGY GENERIC (07/30/2022 12:00 AM DIALYSIS SOCIAL WORKER) CYTOLOGY OTHER [facility] ? Department of Laboratory Medicine ?[address] ?[place] [address] ? , extension [phone] ? Pathology Report ? Non-gynecologic Cytology Report Name: RAY PHILLIPS ? Specimen #: [id number] Age: 9 1955 (Age: 67) ? Location: [facility] Sex: M ?Procedure Date: 07/30/2022 Hospital #: [id number] ?Date Received: 07/31/2022 Date Reported: 08/01/2022 Provider: [...] case was interpreted and signed out at [facility], [address] [place] [address], [place], [place], [facility]. FINAL DIAGNOSIS: LUNG, RIGHT LOWER LOBE, [...] Electronically Signed Out ? GADIEL HANSON MD [facility] 07/30/2022 07/31/2022 12:13 PM DIALYSIS SOCIAL WORKER Comment:LUNG, RIGHT LOWER LO BE, BRONCHOALVEOLAR LAVAGE Anna Us MD PATHOLOGY/CYTOLOGY ORDERABL ES Final Result [facility] [address] [place] [address], [id number] * CYTOLOGY GENERIC (07/30/2022 12:00 AM DIALYSIS SOCIAL WORKER) CYTOLOGY OTHER [facility] ? Department of Laboratory Medicine ?[address] ?[place] [address] ? , extension [phone] ? Pathology Report ? Non-gynecologic Cytology Report Name: RAY PHILLIPS ? Specimen #: [id number] Age: 9 1955 (Age: 67) ? Location: [facility] Sex: M ?Procedure Date: 07/30/2022 Hospital #: [id number] ?Date Received: 07/31/2022 Date Reported: 08/01/2022 Provider: [...] case was interpreted and signed out at [facility], [address] [place] [address], [place], [place], [facility]. FINAL DIAGNOSIS: LUNG, GENERAL AIRWAYS, BRONCHIAL WASHING: ? - SATISFACTORY FOR EVALUATION. ? - NEGATIVE FOR MALIGNANT CELLS. ? - ACUTE INFLAMMATION AND SCATTERED EPITHELIAL CELLS. ? - GMS STAIN DEMONSTRATES RARE FUNGAL HYPHAE OF UNCERTAIN SIGNIFICANCE. Electronically Signed Out ? GADIEL HANSON MD [facility] 07/30/2022 07/31/2022 12: 18 PM DIALYSIS SOCIAL WORKER Comment:LUNG, GENERAL AIRWAY S, BRONCHIAL WASHING us Anna Us MD PATHOLOGY/CYTOLOGY ORDERABL ES Final Result [facility] [address] [place] [address], [id number] * (ABNORMAL) CULTURE, FUNGUS (07/28/2022 2:25 PM DIALYSIS SOCIAL WORKER) SOURCE (PURDIN) SPUTUM 07/31/2022 1:36 PM DIALYSIS SOCIAL WORKER [facility] CULTURE RESULT SEE NOTE 08/28/2022 08:14 AM(A) 08/28/2022 8:14 AM DIALYSIS SOCIAL WORKER [facility] Comment: Test ?Result ?Flag ??Unit ??RefValue Fungal Culture, Routine ?A ? SOURCE: SPUTUM Fungal specimen plated for culture, volume inadequate for optimal recovery. FUNGAL CULTURE, ROUTINE ?FINAL TETE ALBICANS ??Many Test Performed by: [place] [address] Power Plant Operator Apprentice: Brent Alcaraz M.D. Ph.D.; CLIA# [id number] SPUTUM / Unknown 07/28/2022 2:25 PM DIALYSIS SOCIAL WORKER [facility] Yo MD MICROBIOLOGY - GENERA L ORDERABLES Edited Result - Final [facility] [address] [facility] [address] [place] [address], [id number] * CULTURE RESPIRATORY W/ GRAM STAIN (07/28/2022 2:25 PM DIALYSIS SOCIAL WORKER) [facility] SPEC DESCRIPTION SPUTUM, EXPECTORATED 07/28/2022 2:25 PM DIALYSIS SOCIAL WORKER [facility] SPECIAL REQUESTS NO SPECIAL REQUEST 07/28/2022 2:25 PM DIALYSIS SOCIAL WORKER [facility] GRAM STAIN RESULT >25 NEUTROPHILS PER LPF 07/28/2022 10:41 PM DIALYSIS SOCIAL WORKER [facility] GRAM STAIN RESULT <10 EPITHELIAL CELLS PER LPF 07/28/2022 10:41 PM DIALYSIS SOCIAL WORKER [facility] GRAM STAIN RESULT RARE BUDDING YEAST CELLS 07/28/2022 10:41 PM DIALYSIS SOCIAL WORKER [facility] GRAM STAIN RESULT RARE GRAM POSITIVE COCCI IN PAIRS 07/28/2022 10:41 PM DIALYSIS SOCIAL WORKER [facility] GRAM STAIN RESULT RARE GRAM NEGATIVE RODS 07/28/2022 10:41 PM DIALYSIS SOCIAL WORKER [facility] CULTURE RESULT FEW ALPHA STREPTOCOCCUS 07/29/2022 2:57 PM DIALYSIS SOCIAL WORKER [facility] CULTURE RESULT MODERATE PRESUMPTIVE TETE ALBICANS 07/29/2022 2:57 PM DIALYSIS SOCIAL WORKER [facility] SPUTUM SPECIMEN / Unknown 07/28/2022 2:25 PM DIALYSIS SOCIAL WORKER 07/28/2022 3:24 PM DIALYSIS SOCIAL WORKER Tracy Yo MD MICROBIOLOGY - GENERA L ORDERABLES Final Result [facility] [address] [place] [address], [id number] * [place] ABD LIMITED (07/28/2022 11:39 AM DIALYSIS SOCIAL WORKER) Anatomical Region Laterality Modality Abdomen Ultrasound 07/29/2022 6:03 AM DIALYSIS SOCIAL WORKER Impressions 07/29/2022 6:06 AM DIALYSIS SOCIAL WORKER IMPRESSION: 1. ??3 cysts in the spleen with the largest 2.1 cm. ??The smallest of the 3 cyst demonstrates thin internal septation but appears benign. ??No follow-up imaging is recommended. 2. ??Splenomegaly. Referred By: PROVIDER NON-STAFF Interpreted By: Karine Sher MD, 07/29/2022 6:03 AM Narrative 07/29/2022 6:06 AM DIALYSIS SOCIAL WORKER EXAM: Ultrasound abdomen limited spleen. Multiple transabdominal [...] (ABNORMAL) CBC W/DIFF AUTOMATED (07/28/2022 7:03 AM DIALYSIS SOCIAL WORKER) [facility] WBC 13.5(H) 4.0 - 10.8 x10'3/uL 07/28/2022 7:39 AM [facility] RBC 2.51(L) 4.50 - 6.10 x10'6/uL 07/28/2022 7:39 AM [facility] HGB 8.3(L) 13.0 - 18.0 G/DL 07/28/2022 7:39 AM [facility] HCT 25.1(L) 37.0 - 52.0 % 07/28/2022 7:39 AM [facility] MCV 100.0 78.0 - 100.0 FL 07/28/2022 7:39 AM [facility] MCH 33.1(H) 27.0 - 31.0 PG 07/28/2022 7:39 AM [facility] MCHC 33.1 33.0 - 36.0 G/DL 07/28/2022 7:39 AM [facility] RDW 14.7(H) 11.5 - 14.5 % 07/28/2022 7:39 AM [facility] PLT 303 150 - 350 x10'3/uL 07/28/2022 7:39 AM [facility] MPV 10.1 7.4 - 10.4 FL 07/28/2022 7:39 AM [facility] ABS. NEUTROPHILS 11.61(H) 1.60 - 8.30 x10'3/uL 07/28/2022 8:06 AM [facility] ABS. NEUTROPHILS CALCULATED 11.07(H) 1.60 - 7.30 x10'3/uL 07/28/2022 8:06 AM [facility] BANDS 0.27 0.00 - 1.00 x10'3/uL 07/28/2022 8:06 AM [facility] ABS. LYMPHOCYTES 1.08 0.80 - 4.70 x10'3/uL 07/28/2022 8:06 AM [facility] ABS. MONOCYTES 0.81 0.00 - 1.50 x10'3/uL 07/28/2022 8:06 AM [facility] ABS. EOSINOPHILS 0.00 0.00 - 0.40 x10'3/uL 07/28/2022 8:06 AM [facility] ABS. BASOPHILS 0.00 0.00 - 0.20 x10'3/uL 07/28/2022 8:06 AM [facility] ABS. METAMYELOCYTES 0.27(H) 0.00 x10'3/uL 07/28/2022 8:06 AM [facility] ABS. NUCLEATED RBC'S 0.00 0.0 x10'3/uL 07/28/2022 8:06 AM [facility] RBC MORPHOLOGY POLYCHROMASIA 022 8:06 AM [facility] Comment:SLIGHT PLT MORPH. NORMAL 07/28/2022 8:06 AM [facility] 07/28/2022 7:03 AM [facility] Florencio Amaya MD LABORATORY Final Result [facility] [address] [place] [address], [id number] * (ABNORMAL) BASIC METABOLIC PANEL (07/28/2022 7:03 AM DIALYSIS SOCIAL WORKER) SODIUM S/P/B 137 136 - 145 MMOL/L 07/28/2022 7:50 AM [facility] POTASSIUM S/P/B 4.0 3.5 - 5.1 MMOL/L 07/28/2022 7:50 AM [facility] CHLORIDE S/P/B 105 98 - 107 MMOL/L 07/28/2022 7:50 AM [facility] CO2 28.7 21.0 - 32.0 MMOL/L 07/28/2022 7:50 AM [facility] GLUCOSE 98 74 - 106 MG/DL 07/28/2022 7:50 AM [facility] BUN 19(H) 7 - 18 MG/DL 07/28/2022 7:50 AM [facility] CREATININE S/P/B 0.73 0.70 - 1.30 MG/DL 07/28/2022 7:50 AM [facility] CALCIUM S/P/B 7.9(L) 8.5 - 10.1 MG/DL 07/28/2022 7:50 AM [facility] ANION GAP 3.3(L) 5.0 - 15.0 MMOL/L 07/28/2022 7:50 AM [facility] OSMOLALITY (CALC) 286 MOSM/KG 022 7:50 AM [facility] Comment:REFERENCE RANGE NOT ESTABLISHED GFR ESTIMATE >90 >90 ML/MIN/1. 73 M2 07/28/2022 7:50 AM [facility] GFR NOTES GFR REFERENCE S: 07/28/2022 7:50 AM [facility] Comment: THE ESTIMATED GFR IS CALCULATED [...] FAILURE: <15 ml/min/1.73 m2 07/28/2022 7:03 AM DIALYSIS SOCIAL WORKER us Florencio Amaya MD LABORATORY Final Result Performing Organization Address [facility] Co de Phone Number [facility] [address] [place] [address], [place] [phone] * Vancomycin Random Level (07/28/2022 7:03 AM DIALYSIS SOCIAL WORKER) VANCOMYCIN RANDOM 7.0 MCG/ML 07/28/2022 7:52 AM DIALYSIS SOCIAL WORKER [facility] Comment:REFERENCE RANGE NOT ESTABLISHED 07/28/2022 7:03 AM DIALYSIS SOCIAL WORKER us Tracy Yo MD LABORATORY Final Result Performing Organization Address [facility] de Phone Number [facility] [address] [place] [address], [place] [phone] * XR CHEST PORTABLE (07/28/2022 12:43 AM DIALYSIS SOCIAL WORKER) Anatomical Region Laterality Modality Chest Radiographic Jasmina ging 07/28/2022 1:18 AM DIALYSIS SOCIAL WORKER Impressions 07/28/2022 1:26 AM DIALYSIS SOCIAL WORKER IMPRESSION: 1. ??Right basilar pigtail catheter remains [...] 07/28/2022 1:18 AM Narrative 07/28/2022 1:26 AM DIALYSIS SOCIAL WORKER EXAMINATION: XR CHEST PORTABLE HISTORY:chest tube COMPARISON: [...] * XR CHEST PORTABLE (07/27/2022 4:22 PM DIALYSIS SOCIAL WORKER) Anatomical Region Laterality Modality Chest Radiographic Jasmina ging 07/27/2022 4:42 PM DIALYSIS SOCIAL WORKER Impressions 07/27/2022 4:44 PM DIALYSIS SOCIAL WORKER IMPRESSION: 1. Right-sided pigtail chest tube. 2. Bilateral pulmonary opacities. 3. Cardiomegaly. Pulmonary vascular congestion. Ordered By: RODNEY NOLASCO Interpreted By: Can Klein DO, 07/27/2022 4:42 PM Narrative 07/27/2022 4:44 PM DIALYSIS SOCIAL WORKER EXAMINATION: XR CHEST PORTABLE HISTORY: Chest tube [...] ult * USE ECHOCARDIOGRAM (07/27/2022 1:13 PM DIALYSIS SOCIAL WORKER) Anatomical Region Laterality Modality Cardiac Echocardiogram 07/27/2022 12:4 4 PM DIALYSIS SOCIAL WORKER Narrative 07/28/2022 6:32 AM DIALYSIS SOCIAL WORKER ?Echocardiography Report Pat.Name: ??RAY PHILLIPS ? Pat.ID: ?[id number] ? St.Date: ?? 07/27/2022 ? Refer.MD: ??[id number] NON-STAFF PROVIDER ?EWDPROV ?EWDPROV Exam Time: 12:44:00 PM ? Study Type:ECHO WITH CARDIAC DOPPLER COMP Height: ?165 cm ?Weight: ?68 kg ? BSA: ? 1.75 m2 ?Age: ??1955,67Y ? Sex: ? M ? BP: ?138/68 ? HR: ?70 bpm ?Sonogrphr: Avery Marie RDCS ? Pat. Stat.:Inpatient ? Room: ?742 ? CPT - 4: ?54530 ? Reason for Study:Pericardial effusion Procedures: 2D, [...] ?? Value ?229 g ? LV Mass [id number] ?? Value ?131 g/m2 ? Right Ventricle [...] - 07/28/2022 Echocardiography Report Pat.Name: RAY PHILLIPS.ID: [id number] .Date: 07/27/2022 : [id number] NON-STAFF PROVIDER EWDPRORichard EWDPROV Exam Time: 12:44:00 PM Study Type:ECHO WITH CARDIAC DOPPLER COMP Height: 165 cm Weight: 68 kg BSA: 1.75 m2 Age: 9 1955,67Y Sex: M BP: 138/68 HR: 70 bpm Sonogrphr: Avery Marie RDCS Pat. Stat.:Inpatient Room: 742 CPT - 4: 85748 Reason for Study:Pericardial effusion Procedures: 2D, M-mode, [...] Mass 2D Value 229 g LV Mass [id number] Value 131 g/m2 Right Ventricle Right Ventricle [...] MIDLINE PLACEMENT GREATER 3YR (07/27/2022 11:20 AM DIALYSIS SOCIAL WORKER) Anatomical Region Laterality Modality Chest Interventional R adiology 07/27/2022 11:1 5 AM DIALYSIS SOCIAL WORKER Impressions 07/27/2022 11:23 AM DIALYSIS SOCIAL WORKER Impression: Successful image guided left basilic vein inserted midline line venous catheter. Plan: 1. ??Left midline venous catheter okay for immediate use. 2. ??IR follow-up as needed. Thank you for allowing [facility] Interventional Radiology to assist in this patient's care! Ordered By: TRACY YO Interpreted By: Reji Cantrell MD, 07/27/2022 11:15 AM Narrative 07/27/2022 11:23 AM DIALYSIS SOCIAL WORKER IR MIDLINE VENOUS CATHETER PLACEMENT Pre op diagnosis: . IV access required. Midline requested. Post Op Diagnosis: same Procedure: Midline venous catheter placement. Grafts/Implants: 4 Somali midline venous catheter Interventional Radiologist: Óscar Paper Carrier: ANSON Keating tech Anesthesia: Local - 1% [...] centrally. Peel-away sheath was placed. A 4 Somali single lumen midline, 20 cm. This was [...] Procedure: Midline venous catheter placement. Grafts/Implants: 4 Somali midline venous catheter Interventional Radiologist: Óscar Paper Carrier: ANSON Keating tech Anesthesia: Local - 1% [...] advancedcentrally. Peel-away sheath was placed. A 4 Somali single lumen midline,20 cm. This was advanced [...] CHEST TUBE INSERT RT (07/27/2022 10:57 AM DIALYSIS SOCIAL WORKER) Anatomical Region Laterality Modality Chest Computed Tomogra phy 07/27/2022 12:0 5 PM DIALYSIS SOCIAL WORKER Impressions 07/27/2022 12:13 PM DIALYSIS SOCIAL WORKER IMPRESSION: Successful CT-guided right thoracostomy tube placement as described. The stopcock will initially be left in the closed position for fibrinolytic 4 hour dwell time. The tube will then be placed to low wall suction. Output and serial radiographs will be monitored to determine further management. Ordered By: FLORENCIO AMAYA Interpreted By: Raul Osuna MD, 07/27/2022 12:05 PM Narrative 07/27/2022 12:13 PM DIALYSIS SOCIAL WORKER PROCEDURE: CT-guided right thoracostomy tube placement Indication: Necrotizing pneumonia with loculated hydropneumothorax Physicians: Raul Osuna M.D. (attending); Rodney Nolasco M.D. (resident) Following informed consent, including discussion of procedural risks, the patient was place in the left lateral decubitus position on the CT table and Cranston protocol was observed to verify correct patient, [...] CT. The tract was dilated to 12 Somali. During dilation, there was temporary retraction of the wire resulting in slight kinking and difficulty advancing the tube. Access was again regained using the one-step sheath needle, followed again by CT confirmation of position, wire placement, and tract dilation. A 12-Somali pigtail drainage catheter with the locking stitch [...] lateral decubitus position on the CT tableand Cranston protocol was observed to verify correct patient, [...] by CT. The tractwas dilated to 12 Somali. During dilation, there was temporary retractionof the wire resulting in slight kinking and difficulty advancing the tube.Access was again regained using the one-step sheath needle, followed againby CT confirmation of position, wire placement, and tract dilation. [id number] pigtail drainage catheter with the locking stitch [...] Result * CULTURE, ANAEROBIC (07/27/2022 10:30 AM DIALYSIS SOCIAL WORKER) SPEC DESCRIPTION SITE: RT PLEURAL FLUID 07/27/2022 12:59 PM DIALYSIS SOCIAL WORKER [facility] SPECIAL REQUESTS NO SPECIAL REQUEST 07/27/2022 12:59 PM DIALYSIS SOCIAL WORKER [facility] CULTURE RESULT FEW MICROAEROPHILIC STREPTOCOCCUS 07/30/2022 5:41 PM DIALYSIS SOCIAL WORKER [facility] SPECIMEN FROM UNSPECIFIED BODY SITE / Unknown 07/27/2022 10:30 AM DIALYSIS SOCIAL WORKER 07/27/2022 12:08 PM DIALYSIS SOCIAL WORKER Comment:RT PLEURAL FLUID Narrative Organism Antibiotic Method Susceptibility Microaerophilic streptococcus CEFOTAXIME ARLEN (ETEST) 0.023: Sensitive Microaerophilic streptococcus PENICILLIN G ARLEN (ETEST) 0.008: Sensitive us Florencio Amaya MD MICROBIOLOGY - GENERAL ORDERABLE S Final Result [facility] [address] [place] [address], [phone] * CULTURE, BODY FLUID W/ GRAM STAIN (07/27/2022 10:30 AM DIALYSIS SOCIAL WORKER) SPEC DESCRIPTION PLEURAL FLUID: RT 07/27/2022 12:09 PM DIALYSIS SOCIAL WORKER [facility] SPECIAL REQUESTS NO SPECIAL REQUEST 07/27/2022 12:09 PM DIALYSIS SOCIAL WORKER [facility] GRAM STAIN RESULT MANY NEUTROPHILS SEEN 07/27/2022 4:31 PM DIALYSIS SOCIAL WORKER [facility] GRAM STAIN RESULT NO ORGANISMS SEEN 07/27/2022 4:31 PM DIALYSIS SOCIAL WORKER [facility] CULTURE RESULT RARE STAPHYLOCOCCUS EPIDERMIDIS 07/31/2022 7:51 AM DIALYSIS SOCIAL WORKER [facility] PLEURAL FLUID SPECIMEN / Unknown 07/27/2022 10:30 AM DIALYSIS SOCIAL WORKER 07/27/2022 12:08 PM DIALYSIS SOCIAL WORKER Comment:RT Narrative Organism Antibiotic Method Susceptibility Staphylococcus [...] ORDERABLE S Final Result Performing Organization Address [facility] de Phone Number [facility] [address] [place] [address], [phone] * PROTEIN TOTAL FLUID (07/27/2022 10:30 AM DIALYSIS SOCIAL WORKER) PROTEIN (FLUID) 3.5 G/DL 3:22 PM DIALYSIS SOCIAL WORKER [facility] Comment:REFERENCE RANGE NOT ESTABLISHED FOR THIS BODY FLUID. SOURCE (FLUID) PLEURAL FLUID 07/27/2022 10:53 AM DIALYSIS SOCIAL WORKER [facility] PLEURAL FLUID SPECIMEN / Unknown 07/27/2022 10:30 AM DIALYSIS SOCIAL WORKER Tracy Yo MD BODY FLUIDS AND STOOL S ORDERABLES Final Result Performing Organization Address [facility] de Phone Number [facility] [address] [place] [address], [phone] * CELL COUNT W/ DIFF BODY FLUID (07/27/2022 10:30 AM DIALYSIS SOCIAL WORKER) SOURCE (FLUID) PLEURAL FLUID 022 3:08 PM DIALYSIS SOCIAL WORKER [facility] WBC (FLUID) 144.450 x10'3/uL 07/27/2022 3:08 PM DIALYSIS SOCIAL WORKER [facility] Comment:REFERENCE RANGE NOT ESTABLISHED RBC (FLUID) 0.090 x10'6/uL 07/27/2022 3:08 PM DIALYSIS SOCIAL WORKER [facility] Comment:REFERENCE RANGE NOT ESTABLISHED DIFFERENTIAL MANUAL DIFFERENTIAL PERFORMED ON CONCENTRATED CYTOSPIN 07/27/2022 10:53 AM DIALYSIS SOCIAL WORKER [facility] CELLS COUNTED 100 No COUNTED 07/27/2022 3:45 PM DIALYSIS SOCIAL WORKER [facility] SEGS (FLUID) 97 % 07/27/2022 3:45 PM DIALYSIS SOCIAL WORKER [facility] LYMPHS (FLUID) 3 % 07/27/2022 3:45 PM DIALYSIS SOCIAL WORKER [facility] PLEURAL FLUID SPECIMEN / Unknown 07/27/2022 10:30 AM DIALYSIS SOCIAL WORKER us Tracy Yo MD BODY FLUIDS AND STOOL S ORDERABLES Final Result Performing Organization Address [facility] Co de Phone Number [facility] [address] [place] [address], [place] [phone] * LDH BODY FLUID (07/27/2022 10:30 AM DIALYSIS SOCIAL WORKER) LDH (FLUID) >4,000 UNITS/L 07/27/2022 3:22 PM DIALYSIS SOCIAL WORKER [facility] Comment:REFERENCE RANGE NOT ESTABLISHED FOR THIS BODY FLUID. SOURCE (FLUID) PLEURAL FLUID 07/27/2022 10:53 AM DIALYSIS SOCIAL WORKER [facility] PLEURAL FLUID SPECIMEN / Unknown 07/27/2022 10:30 AM DIALYSIS SOCIAL WORKER us Tracy Yo MD BODY FLUIDS AND STOOL S ORDERABLES Final Result Performing Organization Address City/[facility]/ZIP Co de Phone Number [facility] [address] [place] [address], [place] [phone] * TRANSFUSE RED BLOOD CELLS (07/27/2022 7:04 AM DIALYSIS SOCIAL WORKER) us Florencio Amaya MD NURSING TREATMENT ORDERABLES - B LOOD ADMIN Final Result * TRANSFUSE RED BLOOD CELLS, 1 Units (07/27/2022 7:04 AM DIALYSIS SOCIAL WORKER) us Florencio Amaya MD NURSING TREATMENT ORDERABLES - B LOOD ADMIN Final Result * (ABNORMAL) BMP WITHOUT GLUCOSE (07/27/2022 2:40 AM DIALYSIS SOCIAL WORKER) SODIUM S/P/B 138 136 - 145 MMOL/L 07/27/2022 3:30 AM [facility] POTASSIUM S/P/B 3.7 3.5 - 5.1 MMOL/L 07/27/2022 3:30 AM [facility] CHLORIDE S/P/B 106 98 - 107 MMOL/L 07/27/2022 3:30 AM [facility] CO2 26.0 21.0 - 32.0 MMOL/L 07/27/2022 3:30 AM [facility] BUN 22(H) 7 - 18 MG/DL 07/27/2022 3:30 AM [facility] CREATININE S/P/B 0.91 0.70 - 1.30 MG/DL 07/27/2022 3:30 AM [facility] CALCIUM S/P/B 8.2(L) 8.5 - 10.1 MG/DL 07/27/2022 3:30 AM [facility] ANION GAP 6.0 5.0 - 15.0 MMOL/L 07/27/2022 3:30 AM [facility] GFR ESTIMATE >90 >90 ML/MIN/1. 73 M2 07/27/2022 3:30 AM [facility] GFR NOTES GFR REFERENCE S: 07/27/2022 3:30 AM [facility] Comment: THE ESTIMATED GFR IS CALCULATED [...] FAILURE: <15 ml/min/1.73 m2 07/27/2022 2:40 AM DIALYSIS SOCIAL WORKER Florencio Amaya MD LABORATORY Final Result [facility] [address] [place] [address], [phone] * (ABNORMAL) CBC W/DIFF AUTOMATED (07/27/2022 2:40 AM DIALYSIS SOCIAL WORKER) WBC 21.3(H) 4.0 - 10.8 x10'3/uL 07/27/2022 3:07 AM [facility] RBC 1.98(L) 4.50 - 6.10 x10'6/uL 07/27/2022 3:07 AM [facility] HGB 6.5(LL) 13.0 - 18.0 G/DL 07/27/2022 3:07 AM [facility] Comment: CRITICAL RESULT, SPECIMEN DATE, TIME WERE READ BACK BY ALANNAH LINCOLN @0307 07.27.22 BY JOSÉ MIGUEL HCT 20.2(L) 37.0 - 52.0 % 07/27/2022 3:07 AM [facility] MCV 102.0(H) 78.0 - 100.0 FL 07/27/2022 3:07 AM DIALYSIS SOCIAL WORKER [facility] MCH 32.8(H) 27.0 - 31.0 PG 07/27/2022 3:07 AM [facility] MCHC 32.2(L) 33.0 - 36.0 G/DL 07/27/2022 3:07 AM [facility] RDW 14.2 11.5 - 14.5 % 07/27/2022 3:07 AM [facility] PLT 347 150 - 350 x10'3/uL 07/27/2022 3:07 AM [facility] MPV 10.4 7.4 - 10.4 FL 07/27/2022 3:07 AM [facility] ABS. NEUTROPHILS 20.24(H) 1.60 - 8.30 x10'3/uL 07/27/2022 3:25 AM [facility] ABS. NEUTROPHILS CALCULATED 19.17(H) 1.60 - 7.30 x10'3/uL 07/27/2022 3:25 AM [facility] ABS. LYMPHOCYTES 0.85 0.80 - 4.70 x10'3/uL 07/27/2022 3:25 AM [facility] ABS. MONOCYTES 0.21 0.00 - 1.50 x10'3/uL 07/27/2022 3:25 AM [facility] ABS. EOSINOPHILS 0.00 0.00 - 0.40 x10'3/uL 07/27/2022 3:25 AM [facility] ABS. BASOPHILS 0.00 0.00 - 0.20 x10'3/uL 07/27/2022 3:25 AM [facility] ABS. METAMYELOCYTES 0.64(H) 0.00 x10'3/uL 07/27/2022 3:25 AM [facility] ABS. MYELOCYTES 0.21(H) 0.00 x10'3/uL 07/27/2022 3:25 AM [facility] ABS. PROMYELOCYTES 0.21(H) 0.00 x10'3/uL 07/27/2022 3:25 AM [facility] ABS. NUCLEATED RBC'S 0.00 0.0 x10'3/uL 07/27/2022 3:25 AM [facility] RBC MORPHOLOGY POLYCHROMASIA 022 3:25 AM [facility] Comment: SLIGHT ANISOCYTOSIS SLIGHT MACROCYTOSIS SLIGHT PLT MORPH. NORMAL 07/27/2022 3:25 AM [facility] 07/27/2022 2:40 AM DIALYSIS SOCIAL WORKER Florencio Amaya MD LABORATORY Final Result [facility] [address] [place] [address], [phone] * (ABNORMAL) PROCALCITONIN (PCT) (07/26/2022 12:55 PM DIALYSIS SOCIAL WORKER) Procalcitonin 1.83(H) <0.50 NG/ML 07/27/2022 9:06 AM DIALYSIS SOCIAL WORKER [facility] 07/26/2022 12:5 5 PM DIALYSIS SOCIAL WORKER Patel Kelsey MD LABORATORY Final Result Performing Organization Address [facility] Co de Phone Number [facility] [address] [place] [address], [phone] * BLASTOMYCES AB PANEL, (CF, ID) (07/26/2022 12:55 PM DIALYSIS SOCIAL WORKER) BLASTOMYCES AB FIXATION <1:8 <1:8 08/02/2022 5:09 PM DIALYSIS SOCIAL WORKER [facility] UMA GARNETT Comment: Interpretive Criteria: ? <1:8 [...] analytical performance characteristics have been determined by [facility] [place], [place]. It has not been cleared or approved by the U.S. Food and Drug Administration. This assay has been validated pursuant to the CLIA regulations and is used for clinical purposes. BLASTO IMMUNODIFFUSION Negative Negative 08/02/2022 5:09 PM DIALYSIS SOCIAL WORKER [facility] ALFERN GARNETT Comment: ?Interpretive Criteria: ?? Negative: Antibody not detected ?? Positive: Antibody detected A positive result is diagnostic of active or recent blastomycosis and is found in approximately 80% of proven cases of blastomycosis. Test Performed by [facility], [facility] [place], [address] [place] [address] Adrián Balderas M.D., Ph.D., Director of Laboratories , CLIA [id number] 07/26/2022 12:5 5 PM DIALYSIS SOCIAL WORKER us Sergio Raza MD LABORATORY Final Result [facility] [address] , * HISTOPLASMA ANTIBODY PANEL (CF,IM) (07/26/2022 12:55 PM DIALYSIS SOCIAL WORKER) HISTOPLASMA YEAST AB <1:8 <1:8 08/02/2022 5:09 PM DIALYSIS SOCIAL WORKER [facility] HISTOPLASMA MYCELIAL AB <1:8 <1:8 08/02/2022 5:09 PM DIALYSIS SOCIAL WORKER [facility] MELENDEZFERN GARCIA Comment: Interpretive Criteria: ? <1:8 [...] analytical performance characteristics have been determined by [facility] [place]. It has not been cleared or approved by the FDA. This assay has been validated pursuant to the CLIA regulations and is used for clinical purposes. HISTOPLASMA CAPSULATUM H AB Negative Negative 08/02/2022 5:09 PM DIALYSIS SOCIAL WORKER [facility] MELENDEZShellyFERN GARNETT Comment: This immunodiffusion assay is [...] the diagnosis of histoplasmosis. Test Performed by [facility], [facility], [address] [place] [address] Adrián Balderas M.D., Ph.D., Director of Laboratories , CLIA [id number] HISTOPLASMA CAPSULATUM M AB Negative Negative 08/02/2022 5:09 PM DIALYSIS SOCIAL WORKER [facility]MA GARNETT 07/26/2022 12:5 5 PM DIALYSIS SOCIAL WORKER Sergio Raza MD LABORATORY Final Result Performing Organization Address [facility] Co de Phone Number [facility] [address] [phone], * (ABNORMAL) HEMOGLOBIN AND HEMATOCRIT (07/26/2022 12:55 PM DIALYSIS SOCIAL WORKER) Pathologist [facility] [place] HGB 7.1(L) 13.0 - 18.0 G/DL 07/26/2022 1:14 PM DIALYSIS SOCIAL WORKER [facility] HCT 21.5(L) 37.0 - 52.0 % 07/26/2022 1:14 PM DIALYSIS SOCIAL WORKER [facility] 07/26/2022 12:5 5 PM DIALYSIS SOCIAL WORKER Tracy Yo MD LABORATORY Final Result Performing Organization Address City/[facility]/ZIP Co de Phone Number [facility] [address] [place] [address], [place] [phone] * BLOOD SMEAR INTERPRETATION BY (07/26/2022 9:04 AM DIALYSIS SOCIAL WORKER) CBC PATHOLOGIST COMMENT DUPLICATE. SAME TEST ORDERED BY DIFFERENT DOCTORS. 07/26/2022 11:20 AM DIALYSIS SOCIAL WORKER [facility] Comment: CORRECTED ON 07/26 AT 1120: Previously reported as SENT TO PATHOLOGIST FOR REVIEW 07/26/2022 9:04 AM DIALYSIS SOCIAL WORKER us Florencio Amaya MD LABORATORY Edited Result - Final Performing Organization Address [facility] Co de Phone Number [facility] [address] [place] [address], [place] [phone] * (ABNORMAL) HAPTOGLOBIN, QUANT (07/26/2022 9:04 AM DIALYSIS SOCIAL WORKER) HAPTOGLOBIN 412.0(H) 30.0 - 200.0 MG/DL 07/26/2022 9:55 AM DIALYSIS SOCIAL WORKER [facility] 07/26/2022 9:04 AM DIALYSIS SOCIAL WORKER us Florencio Amaya MD LABORATORY Final Result Performing Organization Address [facility] Co de Phone Number [facility] [address] [place] [address], [id number] * XR CHEST PORTABLE (07/26/2022 6:55 AM DIALYSIS SOCIAL WORKER) Anatomical Region Laterality Modality Chest Radiographic Jasmina ging 07/26/2022 7:27 AM DIALYSIS SOCIAL WORKER Impressions 07/26/2022 7:29 AM DIALYSIS SOCIAL WORKER IMPRESSION: Loculated effusion on the right. ??Bilateral pulmonary opacifications due to atelectasis or infiltrate greatest in the right lower lung and throughout the left lung. Left effusion. Referred By: PROVIDER NON-STAFF Interpreted By: Rudy Montaño MD, 07/26/2022 7:27 AM Narrative 07/26/2022 7:29 AM DIALYSIS SOCIAL WORKER Procedure(s): XR CHEST PORTABLE Date of service: [...] * (ABNORMAL) C-REACTIVE PROTEIN (07/26/2022 2:38 AM DIALYSIS SOCIAL WORKER) C-REACTIVE PROTEIN 12.30(H) <0.80 mg/dL 07/26/2022 3:37 AM DIALYSIS SOCIAL WORKER [facility] 07/26/2022 2:38 AM DIALYSIS SOCIAL WORKER us Tracy Yo MD LABORATORY Final Result Performing Organization Address [facility] Co de Phone Number [facility] [address] [place] [address], [phone] * (ABNORMAL) SED RATE, ERYTHROCYTE (ESR,WSR) (07/26/2022 2:38 AM DIALYSIS SOCIAL WORKER) ESR 45(H) 0 - 15 MM/HR 07/26/2022 3:27 AM DIALYSIS SOCIAL WORKER [facility] 07/26/2022 2:38 AM DIALYSIS SOCIAL WORKER us Tracy Yo MD LABORATORY Final Result Performing Organization Address [facility] de Phone Number [facility] [address] [place] [address], [id number] * (ABNORMAL) ARTERIAL BLOOD GAS (07/26/2022 2:38 AM DIALYSIS SOCIAL WORKER) PH ARTERIAL 7.43 7.35 - 7.45 07/26/2022 3:01 AM DIALYSIS SOCIAL WORKER [facility] PCO2 37.3 35.0 - 45.0 MMHG 07/26/2022 3:01 AM [facility] PO2 71.8(L) 83.0 - 108.0 MMHG 07/26/2022 3:01 AM DIALYSIS SOCIAL WORKER [facility] BICARB ARTERIAL 24.1 22 - 26 MMOL/L 07/26/2022 3:01 AM [facility] TCO2 25.3 23 - 27 MMOL/L 07/26/2022 3:01 AM [facility] BE/BASE EXCESS 0.4 0 - 2 MMOL/L 07/26/2022 3:01 AM DIALYSIS SOCIAL WORKER [facility] O2 Saturation 93(L) 95 - 98 % 07/26/2022 3:01 AM [facility] 07/26/2022 2:38 AM DIALYSIS SOCIAL WORKER Ann Hammond NP LABORATORY Final Result [facility] [address] [place] [address], [id number] * (ABNORMAL) CBC W/DIFF AUTOMATED (07/26/2022 2:38 AM DIALYSIS SOCIAL WORKER) WBC 17.5(H) 4.0 - 10.8 x10'3/uL 07/26/2022 3:40 AM [facility] RBC 2.26(L) 4.50 - 6.10 x10'6/uL 07/26/2022 3:40 AM [facility] HGB 7.6(L) 13.0 - 18.0 G/DL 07/26/2022 3:40 AM [facility] HCT 22.9(L) 37.0 - 52.0 % 07/26/2022 3:40 AM [facility] MCV 101.3(H) 78.0 - 100.0 FL 07/26/2022 3:40 AM [facility] MCH 33.6(H) 27.0 - 31.0 PG 07/26/2022 3:40 AM DIALYSIS SOCIAL WORKER [facility] MCHC 33.2 33.0 - 36.0 G/DL 07/26/2022 3:40 AM [facility] RDW 13.8 11.5 - 14.5 % 07/26/2022 3:40 AM [facility] PLT 283 150 - 350 x10'3/uL 07/26/2022 3:40 AM [facility] MPV 10.6(H) 7.4 - 10.4 FL 07/26/2022 3:40 AM [facility] ABS. NEUTROPHILS 16.80(H) 1.60 - 8.30 x10'3/uL 07/26/2022 4:48 AM [facility] ABS. NEUTROPHILS CALCULATED 16.45(H) 1.60 - 7.30 x10'3/uL 07/26/2022 4:48 AM [facility] BANDS 0.18 0.00 - 1.00 x10'3/uL 07/26/2022 4:48 AM [facility] ABS. LYMPHOCYTES 0.53(L) 0.80 - 4.70 x10'3/uL 07/26/2022 4:48 AM [facility] ABS. MONOCYTES 0.18 0.00 - 1.50 x10'3/uL 07/26/2022 4:48 AM [facility] ABS. EOSINOPHILS 0.00 0.00 - 0.40 x10'3/uL 07/26/2022 4:48 AM [facility] ABS. BASOPHILS 0.00 0.00 - 0.20 x10'3/uL 07/26/2022 4:48 AM [facility] ABS. MYELOCYTES 0.18(H) 0.00 x10'3/uL 07/26/2022 4:48 AM [facility] ABS. NUCLEATED RBC'S 0.18(H) 0.0 x10'3/uL 07/26/2022 4:48 AM [facility] RBC MORPHOLOGY POLYCHROMASIA 022 4:48 AM [facility] Comment: SLIGHT POIKILOCYTOSIS SLIGHT WBC MORPHOLOGY HYPERSEGMENTATION 4:48 AM [facility] Comment: TOXIC GRANULATION VACUOLATED NEUTROPHILS PLT MORPH. NORMAL 07/26/2022 4:48 AM [facility] 07/26/2022 2:38 AM DIALYSIS SOCIAL WORKER Ann Hammond NP LABORATORY Final Result Performing Organization Address [facility]/ZIP Co de Phone Number [facility] [address] [place] [address], [phone] * (ABNORMAL) LDH, LACTATE DEHYDROGENASE (07/26/2022 2:38 AM DIALYSIS SOCIAL WORKER) LDH 265(H) 87 - 241 UNITS/L 07/26/2022 3:37 AM DIALYSIS SOCIAL WORKER [facility] Comment:RESULT QUESTIONABLE DUE TO HEMOLYSIS, RECOMMEND RECOLLECTION. 07/26/2022 2:38 AM DIALYSIS SOCIAL WORKER Tracy Yo MD LABORATORY Final Result Performing Organization Address [facility] de Phone Number [facility] [address] [place] [address], [phone] * (ABNORMAL) COMPREHENSIVE METABOLIC PANEL (07/26/2022 2:38 AM DIALYSIS SOCIAL WORKER) SODIUM S/P/B 135(L) 136 - 145 MMOL/L 07/26/2022 3:37 AM [facility] POTASSIUM S/P/B 4.5 3.5 - 5.1 MMOL/L 07/26/2022 3:37 AM [facility] Comment:SLIGHT HEMOLYSIS, RE SULT MAY BE AFFECTED. CHLORIDE S/P/B 105 98 - 107 MMOL/L 07/26/2022 3:37 AM DIALYSIS SOCIAL WORKER [facility] CO2 26.8 21.0 - 32.0 MMOL/L 07/26/2022 3:37 AM [facility] GLUCOSE 137(H) 74 - 106 MG/DL 07/26/2022 3:37 AM [facility] BUN 15 7 - 18 MG/DL 07/26/2022 3:37 AM [facility] CREATININE S/P/B 0.66(L) 0.70 - 1.30 MG/DL 07/26/2022 3:37 AM [facility] CALCIUM S/P/B 8.1(L) 8.5 - 10.1 MG/DL 07/26/2022 3:37 AM [facility] BILIRUBIN TOTAL S/P/B 0.2 0.2 - 1.0 MG/DL 07/26/2022 3:37 AM [facility] ALKALINE PHOSPHATASE S/P/B 60 45 - 115 U/L 07/26/2022 3:37 AM [facility] AST 19 15 - 37 U/L 07/26/2022 3:37 AM [facility] ALT 20 16 - 61 U/L 07/26/2022 3:37 AM [facility] TOTAL PROTEIN S/P/B 5.3(L) 6.4 - 8.2 G/DL 07/26/2022 3:37 AM [facility] ALBUMIN S/P/B 1.5(L) 3.4 - 5.0 G/DL 07/26/2022 3:37 AM [facility] ANION GAP 3.2(L) 5.0 - 15.0 MMOL/L 07/26/2022 3:37 AM [facility] OSMOLALITY (CALC) 283 MOSM/KG 022 3:37 AM [facility] Comment:REFERENCE RANGE NOT ESTABLISHED GFR ESTIMATE >90 >90 ML/MIN/1. 73 M2 07/26/2022 3:37 AM [facility] GFR NOTES GFR REFERENCE S: 07/26/2022 3:37 AM [facility] Comment: THE ESTIMATED GFR IS CALCULATED [...] FAILURE: <15 ml/min/1.73 m2 07/26/2022 2:38 AM D[employer] WORK[employer] Tracy Yo MD LABORATORY Final Result [facility] [address] [place] [address], [place] [phone] [id number] * CTA CHEST+ABD+PEL (07/26/2022 12:32 AM DIALYSIS SOCIAL WORKER) Anatomical Region Laterality Modality Chest, Abdomen, Pelvis Computed Tomography 07/26/2022 12:5 6 AM D[employer]IS SOCIAL WORKER Impressions 07/26/2022 1:23 AM DIALYSIS SOCIAL WORKER IMPRESSION: 1. ??Air-fluid level within loculated fluid [...] 07/26/2022 12:56 AM Narrative 07/26/2022 1:23 AM DIAL[employer]IS SOCIAL WORKER EXAMINATION: 1. ??CTA Chest with Intravenous Contrast, [...] (ABNORMAL) RETICULOCYTE CT, AUTO (07/25/2022 8:56 PM DIALYSIS SOCIAL WORKER) % RETICULOCYTE COUNT 4.0(H) 0.7 - 2.3 % 07/25/2022 9:04 PM DIALYSIS SOCIAL WORKER [facility] ABSOLUTE RETICULOCYTE 0.09 0.03 - 0.11 x10'6/uL 07/25/2022 9:04 PM DIALYSIS SOCIAL WORKER [facility] IMMATURE RETIC FRACTION 31.8(H) 2.3 - 13.4 % 07/25/2022 9:04 PM DIALYSIS SOCIAL WORKER [facility] RETIC HGB 31.9 28.0 - 35.0 PG 07/25/2022 9:04 PM DIALYSIS SOCIAL WORKER [facility] 07/25/2022 8:56 PM DIALYSIS SOCIAL WORKER us Tracy Yo MD LABORATORY Final Result Performing Organization Address City/[facility] Co de Phone Number [facility] [address] [place] [address], [phone] * (ABNORMAL) HEMOGLOBIN AND HEMATOCRIT (07/25/2022 8:56 PM DIALYSIS SOCIAL WORKER) HGB 7.5(L) 13.0 - 18.0 G/DL 07/25/2022 9:04 PM DIALYSIS SOCIAL WORKER [facility] HCT 23.2(L) 37.0 - 52.0 % 07/25/2022 9:04 PM DIALYSIS SOCIAL WORKER [facility] 07/25/2022 8:56 PM DIALYSIS SOCIAL WORKER us Tracy Yo MD LABORATORY Final Result Performing Organization Address City/[facility] Co de Phone Number [facility] [address] [place] [address], [place] [phone] * STREP PNEUMO AG URINE (07/25/2022 8:31 PM DIALYSIS SOCIAL WORKER) S. PNEUMONIAE URINARY AG NEGATIVE NEGATIVE 07/26/2022 2:26 PM DIALYSIS SOCIAL WORKER [facility] Comment: PRESUMPTIVE NEGATIVE FOR PNEUMOCOCCAL PNEUMONIA, SUGGESTING NO CURRENT OR RECENT PNEUMOCOCCAL INFECTION. INFECTION DUE TO STREPTOCOCCUS PNEUMONIA CANNOT BE RULED OUT SINCE THE ANTIGEN PRESENT IN THE SAMPLE MAY BELOW THE DETECTION LIMIT OF THE TEST. SPECIMEN TYPE URINE VOIDED 8:31 PM DIALYSIS SOCIAL WORKER [facility] URINE SPECIMEN FROM URETHRA / Unknown 07/25/2022 8:31 PM DIALYSIS SOCIAL WORKER Tracy Yo MD MICROBIOLOGY - GENERA L ORDERABLES Final Result Performing Organization Address [facility] Co de Phone Number [facility] [address] [place] [address], [place] [phone] * LEGIONELLA AG URINE (07/25/2022 8:31 PM DIALYSIS SOCIAL WORKER) LEGIONELLA ANTIGEN (URINE) NEGATIVE NEGATIVE 07/26/2022 2:26 PM DIALYSIS SOCIAL WORKER [facility] Comment: PRESUMPTIVE NEGATIVE FOR L. [...] URINE SPECIMEN / Unknown 07/25/2022 8:31 PM DIALYSIS SOCIAL WORKER Tracy Yo MD MICROBIOLOGY - GENERA L ORDERABLES Final Result Performing Organization Address [facility] Co de Phone Number [facility] [address] [place] [address], [place] [phone] * BLOOD SMEAR INTERPRETATION BY (07/25/2022 5:23 PM DIALYSIS SOCIAL WORKER) CBC PATHOLOGIST COMMENT SENT TO PATHOLOGIST FOR REVIEW 07/25/2022 5:32 PM DIALYSIS SOCIAL WORKER [facility] 07/25/2022 5:23 PM DIALYSIS SOCIAL WORKER us Tracy Yo MD LABORATORY Final Result Performing Organization Address [facility] Co de Phone Number [facility] [address] [place] [address], [place] [phone] * (ABNORMAL) LDH, LACTATE DEHYDROGENASE (07/25/2022 5:23 PM DIALYSIS SOCIAL WORKER) Pathologist [facility] [place] LDH 280(H) 87 - 241 UNITS/L 07/25/2022 5:59 PM DIALYSIS SOCIAL WORKER [facility] 07/25/2022 5:23 PM DIALYSIS SOCIAL WORKER us Tracy Yo MD LABORATORY Final Result Performing Organization Address [facility] de Phone Number [facility] [address] [place] [address], [place] [phone] * (ABNORMAL) HEMOGLOBIN AND HEMATOCRIT (07/25/2022 5:23 PM DIALYSIS SOCIAL WORKER) [facility] HGB 8.1(L) 13.0 - 18.0 G/DL 07/25/2022 5:31 PM DIALYSIS SOCIAL WORKER [facility] HCT 24.4(L) 37.0 - 52.0 % 07/25/2022 5:31 PM DIALYSIS SOCIAL WORKER [facility] 07/25/2022 5:23 PM DIALYSIS SOCIAL WORKER us Tracy Yo MD LABORATORY Final Result Performing Organization Address [facility] de Phone Number [facility] [address] [place] [address], [place] [phone] * HIV 1 ANTIGEN(S), WITH HIV-1 AND HIV-2 ANTIBODIES (07/25/2022 5:23 PM DIALYSIS SOCIAL WORKER) Pathologist [facility] [place] HIV 1/2 AB+ HIV1 P24 AG NON-REACTI VE NON-REACTI VE 07/25/2022 6:53 PM DIALYSIS SOCIAL WORKER [facility] Comment:HIV 1 p24 Ag and HIV 1/ HIV 2 Ab not detected. 07/25/2022 5:23 PM DIALYSIS SOCIAL WORKER Tracy Yo MD LABORATORY Final Result [facility] [address] [place] [address], [id number] * MYCOPLASMA PNEUMONIAE AB (07/25/2022 5:23 PM DIALYSIS SOCIAL WORKER) [facility] M. PNEUMONIAE AB IGG <=0.90 <=0.90 07/30/2022 2:29 PM DIALYSIS SOCIAL WORKER [facility] DEMARIO SAAVEDRA Comment: Reference Range: ?<=0.90 ? [...] IGM 463 <770 U/mL 07/30/2022 2:29 PM DIALYSIS SOCIAL WORKER [facility] ALE[employer]JED SAAVEDRA Comment: Reference Range: ?? <770 U/ml [...] symptoms of the patient. Test Performed by [facility], [facility], [address] [place] [address] Adrián Balderas M.D., Ph.D., Director of Laboratories , CLIA [id number] 07/25/2022 5:23 PM DIALYSIS SOCIAL WORKER Tracy Yo MD LABORATORY Final Result Performing Organization Address City/[facility]/ZIP Co de Phone Number [facility] [address] , [place] [phone] * (ABNORMAL) PROTIME/INR, VENOUS (PROTHROMBIN TIME) (07/25/2022 5:23 PM DIALYSIS SOCIAL WORKER) PROTIME 14.6(H) 9.4 - 12.5 SEC 07/25/2022 5:56 PM DIALYSIS SOCIAL WORKER [facility] INR 1.3(H) 0.8 - 1.1 07/25/2022 5:56 PM DIALYSIS SOCIAL WORKER [facility] 07/25/2022 5:23 PM DIALYSIS SOCIAL WORKER Tracy Yo MD LABORATORY Final Result Performing Organization Address City/[facility]/ZIP Co de Phone Number [facility] [address] [place] [address], [place] [phone] * TYPE & SCREEN (07/25/2022 5:23 PM DIALYSIS SOCIAL WORKER) UNITS ORDERED 1 07/25/2022 5:33 PM DIALYSIS SOCIAL WORKER [facility] ABO/RH B POSITIVE 07/25/2022 6:36 PM DIALYSIS SOCIAL WORKER [facility] ANTIBODY SCREEN NEGATIVE 6:36 PM DIALYSIS SOCIAL WORKER [facility] SAMPLE EXPIRATION 07/28/2022,2359 07/25/2022 5:33 PM [facility] BLOOD UNIT NUMBER [id number] 07/27/2022 4:27 AM DIALYSIS SOCIAL WORKER [facility] PRODUCT: PC LEUKOPOOR 07/27/2022 4:27 AM DIALYSIS SOCIAL WORKER [facility] UNIT DIVISION 00 07/27/2022 4:27 AM [facility] BLOOD UNIT STATUS TRANSFUSED,FINAL 07/28/2022 2:57 AM [facility] ISSUE DATE/TIME [id number] 2:57 AM [facility] PRODUCT CODE [id number] 07/28/2022 2:57 AM [facility] ABO/RH Unit B POS 07/28/2022 2:57 AM [facility] ABO/RH UNIT ISBT CODE 7300 07/28/2022 2:57 AM [facility] BLOOD UNIT EXPIRATION DATE [id number] 07/28/2022 2:57 AM [facility] TRANSFUSION STATUS OK TO TRANSFUSE 07/27/2022 4:27 AM [facility] CROSSMATCH COMPATIBLE-EXM 07/27/2022 4:27 AM [facility] 07/25/2022 5:23 PM DIALYSIS SOCIAL WORKER Tracy Yo MD BLOOD BANK TEST ORDER CHRISTIANA Final Result [facility] [address] [place] [address], [id number] * CULTURE, BACTERIA, BLOOD (07/25/2022 2:17 PM DIALYSIS SOCIAL WORKER) SPEC DESCRIPTION BLOOD 07/25/2022 1:55 PM DIALYSIS SOCIAL WORKER [facility] SPECIAL REQUESTS NO SPECIAL REQUEST 07/25/2022 1:55 PM [facility] CULTURE RESULT NO GROWTH 5 DAYS 07/30/2022 5:25 AM [facility] BLOOD SPECIMEN OBTAINED FOR BLOOD CULTURE / Unknown 07/25/2022 2:17 PM DIALYSIS SOCIAL WORKER 07/25/2022 2:32 PM DIALYSIS SOCIAL WORKER Tracy Yo MD MICROBIOLOGY - GENERA L ORDERABLES Final Result [facility] [address] [place] [address], [place] [phone] * (ABNORMAL) COMPREHENSIVE METABOLIC PANEL (07/25/2022 2:16 PM DIALYSIS SOCIAL WORKER) SODIUM S/P/B 137 136 - 145 MMOL/L 07/25/2022 3:00 PM [facility] POTASSIUM S/P/B 3.4(L) 3.5 - 5.1 MMOL/L 07/25/2022 3:00 PM [facility] CHLORIDE S/P/B 106 98 - 107 MMOL/L 07/25/2022 3:00 PM [facility] CO2 24.7 21.0 - 32.0 MMOL/L 07/25/2022 3:00 PM [facility] GLUCOSE 85 74 - 106 MG/DL 07/25/2022 3:00 PM [facility] BUN 17 7 - 18 MG/DL 07/25/2022 3:00 PM [facility] CREATININE S/P/B 0.57(L) 0.70 - 1.30 MG/DL 07/25/2022 3:00 PM [facility] CALCIUM S/P/B 7.8(L) 8.5 - 10.1 MG/DL 07/25/2022 3:00 PM [facility] BILIRUBIN TOTAL S/P/B 0.3 0.2 - 1.0 MG/DL 07/25/2022 3:00 PM [facility] ALKALINE PHOSPHATASE S/P/B 61 45 - 115 U/L 07/25/2022 3:00 PM [facility] AST 23 15 - 37 U/L 07/25/2022 3:00 PM [facility] ALT 23 16 - 61 U/L 07/25/2022 3:00 PM [facility] TOTAL PROTEIN S/P/B 5.3(L) 6.4 - 8.2 G/DL 07/25/2022 3:00 PM [facility] ALBUMIN S/P/B 1.5(L) 3.4 - 5.0 G/DL 07/25/2022 3:00 PM [facility] ANION GAP 6.3 5.0 - 15.0 MMOL/L 07/25/2022 3:00 PM [facility] OSMOLALITY (CALC) 285 MOSM/KG 022 3:00 PM [facility] Comment:REFERENCE RANGE NOT ESTABLISHED GFR ESTIMATE >90 >90 ML/MIN/1. 73 M2 07/25/2022 3:00 PM [facility] GFR NOTES GFR REFERENCE S: 07/25/2022 3:00 PM [facility] Comment: THE ESTIMATED GFR IS CALCULATED [...] FAILURE: <15 ml/min/1.73 m2 07/25/2022 2:16 PM DIALYSIS SOCIAL WORKER Tracy Yo MD LABORATORY Final Result [facility] [address] [place] [address], [id number] * (ABNORMAL) CBC W/DIFF AUTOMATED (07/25/2022 2:16 PM DIALYSIS SOCIAL WORKER) [facility] WBC 17.6(H) 4.0 - 10.8 x10'3/uL 07/25/2022 2:26 PM DIALYSIS SOCIAL WORKER [facility] RBC 2.07(L) 4.50 - 6.10 x10'6/uL 07/25/2022 2:26 PM [facility] HGB 7.0(L) 13.0 - 18.0 G/DL 07/25/2022 2:26 PM [facility] HCT 21.0(L) 37.0 - 52.0 % 07/25/2022 2:26 PM DIALYSIS SOCIAL WORKER [facility] MCV 101.4(H) 78.0 - 100.0 FL 07/25/2022 2:26 PM DIALYSIS SOCIAL WORKER [facility] MCH 33.8(H) 27.0 - 31.0 PG 07/25/2022 2:26 PM DIALYSIS SOCIAL WORKER [facility] MCHC 33.3 33.0 - 36.0 G/DL 07/25/2022 2:26 PM [facility] RDW 13.6 11.5 - 14.5 % 07/25/2022 2:26 PM DIALYSIS SOCIAL WORKER [facility] PLT 260 150 - 350 x10'3/uL 07/25/2022 2:26 PM [facility] MPV 10.8(H) 7.4 - 10.4 FL 07/25/2022 2:26 PM [facility] ABS. NEUTROPHILS 14.78(H) 1.60 - 8.30 x10'3/uL 07/25/2022 2:42 PM [facility] ABS. NEUTROPHILS CALCULATED 13.55(H) 1.60 - 7.30 x10'3/uL 07/25/2022 2:42 PM DIALYSIS SOCIAL WORKER [facility] ABS. LYMPHOCYTES 2.29 0.80 - 4.70 x10'3/uL 07/25/2022 2:42 PM DIALYSIS SOCIAL WORKER [facility] ABS. MONOCYTES 0.53 0.00 - 1.50 x10'3/uL 07/25/2022 2:42 PM DIALYSIS SOCIAL WORKER [facility] ABS. EOSINOPHILS 0.00 0.00 - 0.40 x10'3/uL 07/25/2022 2:42 PM DIALYSIS SOCIAL WORKER [facility] ABS. BASOPHILS 0.00 0.00 - 0.20 x10'3/uL 07/25/2022 2:42 PM DIALYSIS SOCIAL WORKER [facility] ABS. METAMYELOCYTES 0.70(H) 0.00 x10'3/uL 07/25/2022 2:42 PM DIALYSIS SOCIAL WORKER [facility] ABS. MYELOCYTES 0.35(H) 0.00 x10'3/uL 07/25/2022 2:42 PM DIALYSIS SOCIAL WORKER [facility] ABS. PROMYELOCYTES 0.18(H) 0.00 x10'3/uL 07/25/2022 2:42 PM DIALYSIS SOCIAL WORKER [facility] ABS. NUCLEATED RBC'S 0.00 0.0 x10'3/uL 07/25/2022 2:42 PM DIALYSIS SOCIAL WORKER [facility] RBC MORPHOLOGY ANISOCYTOSIS 07/25/20 2:42 PM DIALYSIS SOCIAL WORKER [facility] Comment: SLIGHT MACROCYTOSIS MODERATE POIKILOCYTOSIS SLIGHT OVALOCYTES ACANTHOCYTES WBC MORPHOLOGY VACUOLATED NEUTROPHILS 07/25/2022 2:42 PM DIALYSIS SOCIAL WORKER [facility] PLT MORPH. NORMAL 07/25/2022 2:42 PM DIALYSIS SOCIAL WORKER [facility] 07/25/2022 2:16 PM DIALYSIS SOCIAL WORKER Tracy Yo MD LABORATORY Final Result [facility] [address] [place] [address], [id number] * CULTURE, BACTERIA, BLOOD (07/25/2022 2:16 PM DIALYSIS SOCIAL WORKER) SPEC DESCRIPTION BLOOD 07/25/20 2:32 PM DIALYSIS SOCIAL WORKER [facility] SPECIAL REQUESTS BLOOD-AERO BIC BOTTLE ONLY 07/25/2022 2:32 PM DIALYSIS SOCIAL WORKER [facility] CULTURE RESULT NO GROWTH 5 DAYS 07/30/2022 5:25 AM DIALYSIS SOCIAL WORKER [facility] BLOOD SPECIMEN OBTAINED FOR BLOOD CULTURE / Unknown 07/25/2022 2:16 PM DIALYSIS SOCIAL WORKER 07/25/2022 2:32 PM DIALYSIS SOCIAL WORKER Tracy Yo MD MICROBIOLOGY - GENERA L ORDERABLES Final Result [facility] [address] [place] [address], [id number] * Pathology (07/25/2022 12:00 AM DIALYSIS SOCIAL WORKER) PATHOLOGY [facility] ? Department of Laboratory Medicine ?[address] ?[place] [address] ? , extension [phone] ? Pathology Report ? Peripheral Smear Report Name: RAY PHILLIPS ? Specimen #: [id number] Age: 9 1955 (Age: 67) ? Location: [facility] Sex: M ?Procedure Date: 07/25/2022 [facility] #: [id number] ?Date Received: 07/27/2022 Date Reported: 07/27/2022 Provider: [...] applicable), interpretation and sign-out were performed at [facility], [address] [place] [address], [place], [place], [address]. [facility] 07/25/2022 07/27/2022 7:5 8 AM DIALYSIS SOCIAL WORKER Comment:Peripheral blood Tracy Yo MD PATHOLOGY/CYTOLOGY OR DERABLES Final Result Performing Organization Address City/State/[facility] Co de Phone Number [facility] [address] [place] [address], [id number] documented in this encounter Visit Diagnoses Diagnosis Respiratory failure (CMS/HCC HHS/HCC)- Primary Acute respiratory failure documented in this encounter Admitting Diagnoses Diagnosis Respiratory failure (CMS/[facility] HHS/HCC) Acute respiratory failure documented in this [...] in 24 hours. Given 08/05/2022 9:02 PM DIALYSIS SOCIAL WORKER 650 mg Given 08/04/2022 10:28 PM DIALYSIS SOCIAL WORKER 650 mg Given 08/01/2022 9:40 PM DIALYSIS SOCIAL WORKER 650 mg albuterol sulfate HFA 108 (90 Base) MCG/ACT inhaler 2 puff 2 puff, Inhalation, Every 4 hours PRN, Wheezing, Shortness of breath, Starting on Sat07/25/22 at 1355, Until Sat08/08/22 at 1357 alteplase (CATHFLO) injection Code/trauma/sedation medication, Starting on Sat07/27/22 at 1034, Until Sat08/08/22 at 1357 Given 07/27/2022 10:34 AM DIALYSIS SOCIAL WORKER 2 mg C hest azithromycin (ZITHROMAX) 500 mg in NS 250 mL IVPB 500 mg, Intravenous, at 250 mL/hr, Every 24 hours, 5 doses, First dose on Sat07/25/22 at 1800, Last dose on Sat07/29/22 at 1800 New Bag 07/29/2022 6:18 PM DIALYSIS SOCIAL WORKER 500 mg 250 mL/hr New Bag 07/28/2022 5:52 PM DIALYSIS SOCIAL WORKER 500 mg 250 mL/hr New Bag 07/27/2022 5:32 PM DIALYSIS SOCIAL WORKER 500 mg 250 mL/hr calcium carbonate (TUMS) chewable tablet 500 mg 500 mg, Oral, Daily as needed, Indigestion, Starting on 08/04/22 at 1439, Until Sat08/08/22 at 1357 Given 08/04/2022 2:47 PM DIALYSIS SOCIAL WORKER 500 mg ceFEPIme (MAXIPIME) 2 g in sodium chloride (PF) 0.9 % 10 mL IV 2 g, Intravenous, Administer over 5 Minutes, Every 12 hours, First dose on Sat07/25/22 at 1800, Until Discontinued Given 08/06/2022 5:38 AM DIALYSIS SOCIAL WORKER 2 g 120 mL/hr Given 08/05/2022 4:46 PM DIALYSIS SOCIAL WORKER 2 g 120 mL/hr Given 08/05/2022 5:00 AM DIALYSIS SOCIAL WORKER 2 g 120 mL/hr cefTRIAXone (ROCEPHIN) 2 g in sodium chloride 0.9 % 50 mL IVPB 2 g, Intravenous, at 100 mL/hr, Every 24 hours, First dose on Sat08/06/22 at 1400, Until Discontinued New Bag 08/08/2022 10:55 AM DIALYSIS SOCIAL WORKER 2 g 10 0 mL/hr New Bag 08/07/2022 2:58 PM DIALYSIS SOCIAL WORKER 2 g 100 mL/hr New Bag 08/06/2022 1:25 PM DIALYSIS SOCIAL WORKER 2 g 100 mL/hr chlorhexidine (PERIDEX) 0.12 % solution 15 mL 15 mL, Mouth/Throat, Once, 1 dose, On Zulema 08/02/22 at 0600, Patient to perform oral care first. Swish/gargle in mouth for 30 seconds, and then discard prior to going to surgery. If ventilated use saturated swab to clean oral cavity., Pre-Op Given 08/02/2022 5:17 AM DIALYSIS SOCIAL WORKER 15 mLs cyclobenzaprine (FLEXERIL) tablet 10 mg 10 mg, Oral, 3 times daily PRN, Muscle Spasms, Starting on Sat07/25/22 at 1634, Until Rudolph 08/05/22 at 1009 Given 08/05/2022 5:00 AM DIALYSIS SOCIAL WORKER 10 mg Given 08/04/2022 8:37 PM DIALYSIS SOCIAL WORKER 10 mg Given 07/26/2022 8:28 AM DIALYSIS SOCIAL WORKER 10 mg enoxaparin (LOVENOX) 40 MG/0.4ML syringe 40 mg 40 mg, Subcutaneous, Nightly (enoxaparin), First dose on Sat08/03/22 at 2100, Until Discontinued, Administer by deep SubQ injection alternating between the left or right anterolateral and left or right posterolateral abdominal wall. Given 08/07/2022 8:35 PM DIALYSIS SOCIAL WORKER 40 mg Right Lower Abdomen Given 08/06/2022 9:35 PM DIALYSIS SOCIAL WORKER 40 mg Ri ght Lower Abdomen Given 08/05/2022 8:52 PM DIALYSIS SOCIAL WORKER 40 mg Ri ght Lower Abdomen fentaNYL (SUBLIMAZE) injection Code/trauma/sedation medication, Starting on Sat07/27/22 at 1014, Until Zulema 08/02/22 at 0819 Given 07/27/2022 10:14 AM DIALYSIS SOCIAL WORKER 50 mcg FLUoxetine (PROzac) capsule 20 mg 20 mg, Oral, Daily, First dose on Sat07/25/22 at 1700, Until Discontinued Given 08/08/2022 8:44 AM DIALYSIS SOCIAL WORKER 20 mg Given 08/07/2022 8:51 AM DIALYSIS SOCIAL WORKER 20 mg Given 08/06/2022 10:03 AM DIALYSIS SOCIAL WORKER 20 mg furosemide (LASIX) injection 20 mg 20 mg, Intravenous, Once, 1 dose, On Zulema 07/26/22 at 0245, Administer IV push 20-40mg/min. Given 07/26/2022 2:52 AM DIALYSIS SOCIAL WORKER 20 mg gabapentin (NEURONTIN) capsule 300 mg 300 mg, Oral, 2 times daily, First dose on Sat07/25/22 at 2100, Until Discontinued Given 08/08/2022 8:44 AM DIALYSIS SOCIAL WORKER 300 mg Given 08/07/2022 8:35 PM DIALYSIS SOCIAL WORKER 300 mg Given 08/07/2022 8:51 AM DIALYSIS SOCIAL WORKER 300 mg HYDROcodone-acetaminophen (NORCO) 10-325 MG tablet 1 tablet 1 tablet, Oral, Every 6 hours PRN, Moderate pain (Scale 4 - 7), Severe pain (Scale 8 - 10), Starting on Sat07/25/22 at 1634, Until Sat08/08/22 at 1357, Second line for moderate pain Maximum dose of acetaminophen is 4000 mg from all sources in 24 hours. Given 08/08/2022 6:00 AM DIALYSIS SOCIAL WORKER 1 t ablet Given 08/07/2022 8:35 PM DIALYSIS SOCIAL WORKER 1 tablet Given 08/07/2022 8:55 AM DIALYSIS SOCIAL WORKER 1 tablet influenza virus vaccine (QUAD) injection [...] Sat07/26/22 at 0032 Given 07/26/2022 12:32 AM DIALYSIS SOCIAL WORKER 100 mLs ipratropium-albuterol (COMBIVENT RESPIMAT) 20-100 MCG/ACT inhaler 1 puff 1 puff, Inhalation, Every 4 hours, First dose on Sat07/31/22 at 1930, Until Discontinued, Neb sub Shake Well. Prime inhaler prior to first use. Given 08/08/2022 10:59 AM DIALYSIS SOCIAL WORKER 1 puff Given 08/08/2022 8:48 AM DIALYSIS SOCIAL WORKER 1 puff Given 08/08/2022 2:27 AM DIALYSIS SOCIAL WORKER 1 puff ipratropium-albuterol (DUONEB) 0.5-2.5 (3) MG/3ML nebulizer solution 3 mL 3 mL, Nebulization, Every 4 hours, First dose on Sat07/25/22 at 1730, Until Discontinued Given 07/31/2022 3:30 PM DIALYSIS SOCIAL WORKER 3 mLs Given 07/31/2022 11:48 AM DIALYSIS SOCIAL WORKER 3 mLs Given 07/31/2022 7:39 AM DIALYSIS SOCIAL WORKER 3 mLs lactated ringers bolus infusion 500 mL 500 mL, Intravenous, Administer over 15 Minutes, Once, 1 dose, On Sat08/07/22 at 1430 New Bag 08/07/2022 2:58 PM DIALYSIS SOCIAL WORKER 500 mLs lidocaine (XYLOCAINE) 1 % injection SOLN Code/trauma/sedation medication, Starting on Sat07/27/22 at 1016, Until Sat08/08/22 at 1357 Given 07/27/2022 10:16 AM DIALYSIS SOCIAL WORKER 8 mLs Chest lidocaine 4 % patch 1 patch 1 patch, Transdermal, Administer over 12 Hours, Every 24 hours, First dose on Sat08/03/22 at 0615, Until Discontinued Patch Applied 08/08/2022 6:01 AM DIALYSIS SOCIAL WORKER 1 patch Back Patch Applied 08/07/2022 5:47 AM DIALYSIS SOCIAL WORKER 1 patch Back Patch Applied 08/06/2022 5:38 AM DIALYSIS SOCIAL WORKER 1 patch Back LORazepam (ATIVAN) tablet 1 mg 1 mg, Oral, 2 times daily PRN, Anxiety, Starting on Sat07/25/22 at 1634, Until Sat08/08/22 at 1357 Given 08/08/2022 10:25 AM [employer] 1 mg Given 08/07/2022 5:13 PM [employer] 1 mg Given 08/07/2022 3:33 AM [employer] 1 mg methylPREDNISolone sodium succinate (SOLU-Medrol) injection 62.5 mg 62.5 mg, Intravenous, Every 12 hours, First dose on Sat07/25/22 at 1730, Until Discontinued, If ordered IV, administer into a vein over 3-15 minutes. Doses >= 2 mg/kg or 250mg should be given by infusion, unless the benefits of IV injection outweigh the risks (life-threatening shock) Given 07/26/2022 5:48 AM [employer] 62.5 mg Given 07/25/2022 6:58 PM [employer] 62.5 mg methylPREDNISolone sodium succinate (SOLU-Medrol) injection 62.5 mg 62.5 mg, Intravenous, Daily, First dose (after last modification) on Sat07/27/22 at 0700, Until Discontinued, If ordered IV, administer into a vein over 3-15 minutes. Doses >= 2 mg/kg or 250mg should be given by infusion, unless the benefits of IV injection outweigh the risks (life-threatening shock) Given 07/29/2022 6:33 AM [employer] 62.5 mg Given 07/28/2022 6:28 AM [employer] 62.5 mg Given 07/27/2022 6:58 AM [employer] 62.5 mg metroNIDAZOLE (FLAGYL) tablet 500 mg 500 mg, Oral, Every 8 hours scheduled (3 times per day), First dose on 07/30/22 at 1430, Until Discontinued Given 08/08/2022 6:00 AM [employer] 500 mg Given 08/07/2022 10:52 PM [employer] 500 mg Given 08/07/2022 2:58 PM [employer] 500 mg morphine (MSIR) tablet 30 mg 30 mg, Oral, Every 8 hours PRN, Moderate pain (Scale 4 - 7), Starting on Sat07/25/22 at 1634, Until Sat08/08/22 at 1357, First line for moderate painIndications:Chronic Pain Given 08/08/2022 10:25 AM [employer] 3 0 mg Given 08/08/2022 2:26 AM [employer] 30 mg Given 08/07/2022 5:15 PM [employer] 30 mg morphine injection 1 mg 1 mg, Intravenous, Every 6 hours PRN, Severe pain (Scale 8 - 10), Second line for severe pain if B[place] ineffective of PO not avaiable, Starting on Sat07/27/22 at 0838, Until Sat08/05/22 at 1009 Given 08/03/2022 5:56 AM [employer] 1 mg Given 08/02/2022 6:30 PM [employer] 1 mg Given 08/02/2022 4:42 AM [employer] 1 mg normal saline 0.9 % flush 3-10 mL 3-10 mL, Intravenous, Every 8 hours, First dose on Z[place] 08/02/22 at 0945, Until Discontinued, Post-Op Given 08/08/2022 8:48 AM [employer] 10 mLs Given 08/07/2022 10:52 PM [employer] 10 mLs Given 08/06/2022 10:04 AM [employer] 5 mLs normal saline 0.9 % flush 3-10 mL 3-10 mL, Intravenous, As needed, Line care, Starting on Z[place]ma 08/02/22 at 0915, Until Sat08/08/22 at 1357, Post-Op Given 08/02/2022 6:33 PM [employer] 10 mLs ondansetron (ZOFRAN) injection 4 mg 4 mg, Intravenous, Every 8 hours PRN, Nausea, Vomiting, Starting on Sat07/25/22 at 1355, Until Sat08/08/22 at 1357, IV push over 2-5 minutes. polyethylene glycol (GLYCOLAX) packet 17 g 17 g, Oral, 2 times daily, First dose on Zulema 08/02/22 at 0945, Until Discontinued, Until bowel movement, then discontinue, Post-Op Given 08/07/2022 8:35 PM DIALYSIS SOCIAL WORKER 17 g Given 08/07/2022 8:51 AM DIALYSIS SOCIAL WORKER 17 g Given 08/06/2022 9:37 PM DIALYSIS SOCIAL WORKER 17 g potassium chloride (KLOR-CON) packet 2 packet 2 packet (40 mEq), Oral, Once, 1 dose, On Sat07/25/22 at 1700, Dissolve powder in 240 mL water Given 07/25/2022 6:59 PM DIALYSIS SOCIAL WORKER 2 packets potassium chloride CR (KLOR-CON M) tablet 40 mEq 40 mEq, Oral, Once, 1 dose, On Sat08/05/22 at 1030, Do not chew, crush, or suck on tablet. May break in half. May dissolve whole tablet in 120 mL of water and drink immediately. Given 08/05/2022 12:52 PM DIALYSIS SOCIAL WORKER 40 mEq senna-docusate (SENOKOT-S) 8.6-50 MG tablet 1 tablet 1 tablet, Oral, Nightly PRN, Constipation, Starting on Zulema 08/02/22 at 0920, Until Sat08/08/22 at 1357, Post-Op Given 08/06/2022 5:43 AM DIALYSIS SOCIAL WORKER 1 t ablet Given 08/05/2022 5:03 AM DIALYSIS SOCIAL WORKER 1 tablet sodium chloride (OCEAN) 0.65 % nasal spray 1 spray 1 spray, Each Nostril, As needed, Dryness, Starting on Sat07/25/22 at 2141, Until Sat08/08/22 at 1357 Given 07/25/2022 11:05 PM DIALYSIS SOCIAL WORKER 1 spray sodium chloride 0.9% infusion at 10 mL/hr, Intravenous, Continuous, Starting on Sat07/27/22 at 0445, Until 07/28/22 at 0444, Infuse at TKO rate New Bag 07/27/2022 4:45 AM DIALYSIS SOCIAL WORKER 250 mLs 10 mL/hr traZODone (DESYREL) tablet 100 mg 100 mg, Oral, Nightly at bedtime, First dose on Sat07/25/22 at 2100, Until Discontinued Given 08/07/2022 8:35 PM DIALYSIS SOCIAL WORKER 100 mg Given 08/06/2022 9:36 PM DIALYSIS SOCIAL WORKER 100 mg Given 08/05/2022 8:52 PM DIALYSIS SOCIAL WORKER 100 mg vancomycin 1000 mg in NS 250 mL IVPB 1,000 mg, Intravenous, at 250 mL/hr, Every 12 hours, First dose on 07/28/22 at 1130, Until Discontinued New Bag 08/06/2022 5:38 AM DIALYSIS SOCIAL WORKER 1,000 mg 250 mL/hr New Bag 08/05/2022 4:52 PM DIALYSIS SOCIAL WORKER 1,000 mg 250 mL/hr New Bag 08/05/2022 5:00 AM DIALYSIS SOCIAL WORKER 1,000 mg 250 mL/hr vancomycin 1250 mg in NS 250 mL IVPB 1,250 mg, Intravenous, at 166.7 mL/hr, Every 12 hours, First dose on Zulema 07/26/22 at 0800, Until Discontinued New Bag 07/27/2022 7:00 AM DIALYSIS SOCIAL WORKER 1,250 mg 166.7 mL/hr New Bag 07/26/2022 9:58 AM DIALYSIS SOCIAL WORKER 1,250 mg 166.7 mL/hr vancomycin 1750 mg in NS 500 mL IVPB 1,750 mg, Intravenous, at 250 mL/hr, Once, 1 dose, On Sat07/25/22 at 1815 New Bag 07/25/2022 6:59 PM DIALYSIS SOCIAL WORKER 1,750 mg 250 mL/hr documented in this encounter Active and Recently Administered Medications Times are shown in DIALYSIS SOCIAL WORKER. Scheduled Medication Order 08/06/2022 08/07/2022 08/08/2022 ceFEPIme [...] not want another)213 (Given - Provider: Merary Lagnley RN) 0851 (Given - Provider: Kia Feliciano [...] Rule Out 07/25/2022 07/25/2022 08/01/2022 12:32 AM DIALYSIS SOCIAL WORKER documented as of this encounter Care Teams Or Manager Relationship Specialty Start Date End Date Joe Tam DO [address] [place] [address] PCP - General FAMILY PRACTICE 07/22/22 documented as of this encounter
--- OUTSIDE RECORDS SUMMARY | 2024-08-20 14:26 | XMS_ITS | Encounter Summary ---
Author Organization [facility] Address [address] [place] [address]. [place] [address] [place] [address] Care Team Providers Care Rolled Gold Plater Name Role Phone Mark Carmichael DO Primary Care Provider [phone] Encounter Details Date Type Department Care Team (Latest Contact Info) Description 08/13/2022 10:36 AM BUS DRIVER SUPERVISOR - 08/13/2022 11:59 PM BUS DRIVER SUPERVISOR Hospital Encounter [facility] [place] [address] Zoila Farias MD [address] [place] [address] Discharge Disposition: Home or Self Care (Routine [...] Coronavirus/COVID-19? No / Unsure 08/03/2022 2:21 AM BUS DRIVER SUPERVISOR documented as of this encounter Functional Status * RETIRED Are you deaf or do you have serious difficulty hearing Answer Date of Assessment Author Status No 07/25/2022 11:00 PM BUS DRIVER SUPERVISOR Acti ve * RETIRED Are you blind or do you have serious difficulty seeing, even when wearing glasses? 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) CBC W/DIFF AUTOMATED Routine 08/13/2022 9:30 AM BUS DRIVER SUPERVISOR Gangrene and necrosis of lung ([facility]/HCC HHS/HCC) documented in this encounter Results * (ABNORMAL) CBC W/DIFF AUTOMATED (08/13/2022 9:30 AM BUS DRIVER SUPERVISOR) WBC 4.7 4.0 - 10.8 x10'3/uL 08/13/2022 10:50 AM BUS DRIVER SUPERVISOR [facility] RBC 3.18(L) 4.50 - 6.10 x10'6/uL 08/13/2022 10:50 AM [facility] HGB 10.0(L) 13.0 - 18.0 G/DL 08/13/2022 10:50 AM [facility] HCT 32.9(L) 37.0 - 52.0 % 08/13/2022 10:50 AM [facility] MCV 103.5(H) 78.0 - 100.0 FL 08/13/2022 10:50 AM BUS DRIVER SUPERVISOR [facility] MCH 31.4(H) 27.0 - 31.0 PG 08/13/2022 10:50 AM [facility] MCHC 30.4(L) 33.0 - 36.0 G/DL 08/13/2022 10:50 AM [facility] RDW 15.9(H) 11.5 - 14.5 % 08/13/2022 10:50 AM [facility] PLT 239 150 - 350 x10'3/uL 08/13/2022 10:50 AM [facility] MPV 10.5(H) 7.4 - 10.4 FL 08/13/2022 10:50 AM [facility] CBC COMMENT NORMAL REFERENCE RANGE NOT ESTABLISHED FOR THE PROPORTIONAL LEUKOCYTE DIFFERENTIAL. 08/13/2022 10:50 AM [facility] NEUTROPHILS % 62.6 % 08/13/2022 10:50 AM [facility] LYMPHOCYTES % 23.1 % 08/13/2022 10:50 AM [facility] MONOCYTES % 9.4 % 08/13/2022 10:50 AM [facility] EOSINOPHILS % 4.1 % 08/13/2022 10:50 AM [facility] BASOPHILS % 0.4 % 08/13/2022 10:50 AM [facility] IMMATURE GRANS % 0.4 % 08/13/20 10:50 AM [facility] NRBC 0.0 % 08/13/2022 10:50 AM [facility] ABS. NEUTROPHILS 2.92 1.60 - 8.30 x10'3/uL 08/13/2022 10:50 AM [facility] ABS. LYMPHOCYTES 1.08 0.80 - 4.70 x10'3/uL 08/13/2022 10:50 AM [facility] ABS. MONOCYTES 0.44 0.00 - 1.50 x10'3/uL 08/13/2022 10:50 AM [facility] ABS. EOSINOPHILS 0.19 0.00 - 0.40 x10'3/uL 08/13/2022 10:50 AM [facility] ABS. BASOPHILS 0.02 0.00 - 0.20 x10'3/uL 08/13/2022 10:50 AM [facility] ABS. IMMATURE GRANULOCYTES 0.02 0.00 - 0.03 x10'3/uL 08/13/2022 10:50 AM [facility] ABS. NUCLEATED RBC'S 0.00 0.00 x10'3/uL 08/13/2022 10:50 AM [facility] 08/13/2022 9:30 AM BUS DRIVER SUPERVISOR Zoila Farias MD LABORATORY Final Result [facility] [address] [place] [address], * (ABNORMAL) COMPREHENSIVE METABOLIC PANEL (08/13/2022 9:30 AM BUS DRIVER SUPERVISOR) SODIUM S/P/B 135(L) 136 - 145 MMOL/L 08/13/2022 11:09 AM [facility] POTASSIUM S/P/B 4.0 3.5 - 5.1 MMOL/L 08/13/2022 11:09 AM [facility] CHLORIDE S/P/B 105 98 - 107 MMOL/L 08/13/2022 11:09 AM [facility] CO2 20.6(L) 21.0 - 32.0 MMOL/L 08/13/2022 11:09 AM [facility] GLUCOSE 86 70 - 99 MG/DL 08/13/2022 11:09 AM [facility] Comment: FASTING GLUCOSE 100 TO 125 MG/DL IS CONSISTENT WITH IMPAIRED FASTING GLUCOSE. FASTING GLUCOSE >125 MG/DL IS CONSISTENT WITH DIABETES. RANDOM GLUCOSE >200 MG/DL WITH HYPERGLYCEMIC SYMPTOMS IS CONSISTENT WITH DIABETES. PER ADA GUIDELINES BUN 6 6 - 24 MG/DL 08/13/2022 11:09 AM [facility] CREATININE S/P/B 0.87 0.70 - 1.30 MG/DL 08/13/2022 11:09 AM [facility] CALCIUM S/P/B 8.7 8.4 - 10.5 MG/DL 08/13/2022 11:09 AM [facility] BILIRUBIN TOTAL S/P/B 0.2 0.2 - 1.0 MG/DL 08/13/2022 11:09 AM [facility] Comment: THIS ASSAY IS NOT RECOMMENDED FOR PATIENTS UNDERGOING TREATMENT WITH ELTROMBOPAG DUE TO THE POTENTIAL FOR FALSELY ELEVATED RESULTS. ALKALINE PHOSPHATASE S/P/B 62 45 - 115 U/L 08/13/2022 11:09 AM [facility] AST 21 15 - 37 U/L 08/13/2022 11:09 AM [facility] ALT 12(L) 16 - 63 U/L 08/13/2022 11:09 AM [facility] TOTAL PROTEIN S/P/B 6.7 6.4 - 8.2 G/DL 08/13/2022 11:09 AM [facility] ALBUMIN S/P/B 2.1(L) 3.4 - 5.0 G/DL 08/13/2022 11:09 AM [facility] ANION GAP 9.4 5.0 - 15.0 MMOL/L 08/13/2022 11:09 AM [facility] OSMOLALITY (CALC) 277 MOSM/KG 022 11:09 AM [facility] Comment:REFERENCE RANGE NOT ESTABLISHED GFR ESTIMATE >90 >89 ML/MIN/1. 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
--- OUTSIDE RECORDS SUMMARY | 2024-08-20 14:26 | XMS_ITS | Encounter Summary ---
Author Organization [facility] Address [address] [place] [address]. [place] [address] [place] [address] Care Team Providers Care Gas Welding Equipment Mechanic Name Role Phone Mark Carmichael DO Primary Care Provider [phone] Encounter Details Date Type Department Care Team [...] Coronavirus/COVID-19? No / Unsure 08/03/2022 2:21 AM FOOD BEVERAGE MANAGER documented as of this encounter Functional Status * RETIRED Are you deaf or do you have serious difficulty hearing Answer Date of Assessment Author Status No 07/25/2022 11:00 PM FOOD BEVERAGE MANAGER Acti ve * RETIRED Are you blind or do you have serious difficulty seeing, even when wearing glasses? Answer Date of Assessment Author Status No 07/25/2022 11:00 PM FOOD BEVERAGE MANAGER Acti ve * Do you have serious difficulty walking or climbing stairs? Answer Date of Assessment Author Status No 07/25/2022 11:00 PM FOOD BEVERAGE MANAGER Katie Vega ma R, RN Active * Do you have difficulty dressing or bathing? Answer Date of Assessment Author Status No 07/25/2022 11:00 PM FOOD BEVERAGE MANAGER Katie Vega ma, RN Active * Because of a physical, mental, or emotional condition, do you have difficulty doing errands alone such as visiting a doctor's office or shopping? Answer Date of Assessment Author Status No 07/25/2022 11:00 PM FOOD BEVERAGE MANAGER Katie Vega ma, RN Active documented as of this encounter Mental Status * Because of a physical, mental, or emotional condition, do you have serious difficulty concentrating, remembering, or making decisions? Answer Entry Date Author Status No 07/25/2022 11:00 PM FOOD BEVERAGE MANAGER Katie Vega ma, RN Active documented in this encounter Plan of Treatment Not on file documented as of this encounter Goals Goal Patient Goal Type Associated Problems Recent Progress Patient-Stated? Author Family - family caregiver with be involved in care transitions and discharge planning Lifestyle No Angela Dawkins, PSYCH THERAPIST documented as of this encounter Visit Diagnoses Not on filedocumented in this encounter Care Teams Gas Welding Equipment Mechanic Relationship Specialty Start Date End Date Mark Carmichael DO [address] [place] [address] PCP - General FAMILY PRACTICE 07/22/22 documented as of this encounter
--- OUTSIDE RECORDS SUMMARY | 2024-08-20 14:26 | XMS_ITS | Encounter Summary ---
Author Organization [facility] Address [address] [place] [address]. [place] [address] [place] [address] Care Team Providers Care Senior Technical Editor Name Role Phone Mark Carmichael DO Primary Care Provider [phone] Encounter Details Date Type Department Care Team (Late st Contact Info) Description 08/13/2022 Orders Only [facility] [address] [facility] [place] [address] Zoila Farias MD [address] [place] [address] Social History Tobacco Use Types Packs/Day Years [...] Coronavirus/COVID-19? No / Unsure 08/03/2022 2:21 AM BEVELING MACHINE OPERATOR documented as of this encounter Functional Status * RETIRED Are you deaf or do you have serious difficulty hearing Answer Date of Assessment Author Status No 07/25/2022 11:00 PM BEVELING MACHINE OPERATOR Acti ve * RETIRED Are you blind or do you have serious difficulty seeing, even when wearing glasses? Answer Date of Assessment Author Status No 07/25/2022 11:00 PM BEVELING MACHINE OPERATOR Acti ve * Do you [...] Date Author Status No 07/25/2022 11:00 PM Katei Bueno ma, RN Active documented in this encounter Plan of Treatment Not on file documented as of this encounter Goals Goal Patient Goal Type Associated Problems Recent Progress Patient-Stated? Author Family - family caregiver with be involved in care transitions and discharge planning Lifestyle No Angela Dawkins, LIQUID YEAST SUPERVISOR documented as of this encounter Results * (ABNORMAL) COMPREHENSIVE METABOLIC PANEL (08/13/2022 9:30 AM [facility] SODIUM S/P/B 135(L) 136 - 145 MMOL/L 08/13/2022 11:09 AM [facility] POTASSIUM S/P/B 4.0 3.5 - 5.1 MMOL/L 08/13/2022 11:09 AM [facility] CHLORIDE S/P/B 105 98 - 107 MMOL/L 08/13/2022 11:09 AM [facility] CO2 20.6(L) 21.0 - 32.0 MMOL/L 08/13/2022 11:09 AM [facility] GLUCOSE 86 70 - 99 MG/DL 08/13/2022 11:09 AM [facility] Comment: FASTING GLUCOSE 100 TO 125 MG/DL IS CONSISTENT WITH IMPAIRED FASTING GLUCOSE. FASTING GLUCOSE >125 MG/DL IS CONSISTENT WITH DIABETES. RANDOM GLUCOSE >200 MG/DL WITH HYPERGLYCEMIC SYMPTOMS IS CONSISTENT WITH DIABETES. PER ADA GUIDELINES BUN 6 6 - 24 MG/DL 08/13/2022 11:09 AM [facility] CREATININE S/P/B 0.87 0.70 - 1.30 MG/DL 08/13/2022 11:09 AM [facility] CALCIUM S/P/B 8.7 8.4 - 10.5 MG/DL 08/13/2022 11:09 AM [facility] BILIRUBIN TOTAL S/P/B 0.2 0.2 - 1.0 MG/DL 08/13/2022 11:09 AM [facility] Comment: THIS ASSAY IS NOT RECOMMENDED FOR PATIENTS UNDERGOING TREATMENT WITH ELTROMBOPAG DUE TO THE POTENTIAL FOR FALSELY ELEVATED RESULTS. ALKALINE PHOSPHATASE S/P/B 62 45 - 115 U/L 08/13/2022 11:09 AM [facility] AST 21 15 - 37 U/L 08/13/2022 11:09 AM [facility] ALT 12(L) 16 - 63 U/L 08/13/2022 11:09 AM [facility] TOTAL PROTEIN S/P/B 6.7 6.4 - 8.2 G/DL 08/13/2022 11:09 AM [facility] ALBUMIN S/P/B 2.1(L) 3.4 - 5.0 G/DL 08/13/2022 11:09 AM [facility] ANION GAP 9.4 5.0 - 15.0 MMOL/L 08/13/2022 11:09 AM [facility] OSMOLALITY (CALC) 277 MOSM/KG 022 11:09 AM [facility] Comment:REFERENCE RANGE NOT ESTABLISHED GFR ESTIMATE >90 >89 ML/MIN/1. 73 M2 08/13/2022 11:09 AM [facility] GFR NOTES GFR REFERENCE S: 08/13/2022 11:09 AM [facility] Comment: THE ESTIMATED GFR IS [...] FAILURE: <15 ml/min/1.73 m2 08/13/2022 9:30 AM BEVELING MACHINE OPERATOR us Zoila Farias MD LABORATORY Final Result [facility] [address] [place] [address], * (ABNORMAL) CBC W/DIFF AUTOMATED (08/13/2022 9:30 AM BEVELING MACHINE OPERATOR) WBC 4.7 4.0 - 10.8 x10'3/uL 08/13/2022 10:50 AM BEVELING MACHINE OPERATOR [facility] RBC 3.18(L) 4.50 - 6.10 x10'6/uL 08/13/2022 10:50 AM BEVELING MACHINE OPERATOR [facility] HGB 10.0(L) 13.0 - 18.0 G/DL 08/13/2022 10:50 AM [facility] HCT 32.9(L) 37.0 - 52.0 % 08/13/2022 10:50 AM BEVELING MACHINE OPERATOR [facility] MCV 103.5(H) 78.0 - 100.0 FL 08/13/2022 10:50 AM BEVELING MACHINE OPERATOR [facility] MCH 31.4(H) 27.0 - 31.0 PG 08/13/2022 10:50 AM BEVELING MACHINE OPERATOR [facility] MCHC 30.4(L) 33.0 - 36.0 G/DL 08/13/2022 10:50 AM [facility] RDW 15.9(H) 11.5 - 14.5 % 08/13/2022 10:50 AM [facility] PLT 239 150 - 350 x10'3/uL 08/13/2022 10:50 AM [facility] MPV 10.5(H) 7.4 - 10.4 FL 08/13/2022 10:50 AM [facility] CBC COMMENT NORMAL REFERENCE RANGE NOT ESTABLISHED FOR THE PROPORTIONAL LEUKOCYTE DIFFERENTIAL. 08/13/2022 10:50 AM [facility] NEUTROPHILS % 62.6 % 08/13/2022 10:50 AM [facility] LYMPHOCYTES % 23.1 % 08/13/2022 10:50 AM [facility] MONOCYTES % 9.4 % 08/13/2022 10:50 AM [facility] EOSINOPHILS % 4.1 % 08/13/2022 10:50 AM [facility] BASOPHILS % 0.4 % 08/13/2022 10:50 AM [facility] IMMATURE GRANS % 0.4 % 08/13/20 10:50 AM [facility] NRBC 0.0 % 08/13/2022 10:50 AM [facility] ABS. NEUTROPHILS 2.92 1.60 - 8.30 x10'3/uL 08/13/2022 10:50 AM [facility] ABS. LYMPHOCYTES 1.08 0.80 - 4.70 x10'3/uL 08/13/2022 10:50 AM [facility] ABS. MONOCYTES 0.44 0.00 - 1.50 x10'3/uL 08/13/2022 10:50 AM [facility] ABS. EOSINOPHILS 0.19 0.00 - 0.40 x10'3/uL 08/13/2022 10:50 AM [facility] ABS. BASOPHILS 0.02 0.00 - 0.20 x10'3/uL 08/13/2022 10:50 AM [facility] ABS. IMMATURE GRANULOCYTES 0.02 0.00 - 0.03 x10'3/uL 08/13/2022 10:50 AM [facility] ABS. NUCLEATED RBC'S 0.00 0.00 x10'3/uL 08/13/2022 10:50 AM BEVELING MACHINE OPERATOR [facility] 08/13/2022 9:30 AM BEVELING MACHINE OPERATOR us Zoila Farias MD LABORATORY Final Result 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
--- OUTSIDE RECORDS SUMMARY | 2024-08-20 14:27 | XMS_ITS | Encounter Summary ---
Author Organization [facility] Address [facility] [place] [address] [place] [address] Care Team Providers Care Manufacturing Cost Estimator Name Role Phone Mark Carmichael DO Primary Care Provider [phone] Reason for Visit * Auth/Cert (Routine) Specialty Diagnoses / Procedures Referred By Contac t Referred To Contact Diagnoses Respiratory failure (CMS/HCC [facility]/HCC) Acute respiratory failure Respiratory failure ([facility]) Procedures NONE De Villasenor MD [address] [place] [address] Phone: tel: fax: Referral ID Status Reason Start Date Expiration Date Visits Re quested Visits Authorized [id number] 1 1 Encounter Details Date Type Department Care Team (Late st Contact Info) Description 08/02/2022 7:28 AM LEARNING AND DEVELOPMENT ANALYST Anesthesia Event [facility] [address] [place] [address] Mika Kang MD [address] [place] [address] [place] [address] Nyasia Beach RN Anesthesia Record Procedure Summary [...] Leslie RN 08/02/22 0800 by Carmen Blake, x ray control equipment repairer/Incision 07/30/22; 1534; Surg ical Wound; Throat; no [...] Date: 08/02/22; Removal Time: 0912; Removal Person: RV REPAIRER; Removal Reason: End of Case 08/02/22 0742 [...] Coronavirus/COVID-19? No / Unsure 07/31/2022 8:31 AM LEARNING AND DEVELOPMENT ANALYST documented as of this encounter Functional Status * RETIRED Are you deaf or do you have serious difficulty hearing Answer Date of Assessment Author Status No 07/25/2022 11:00 PM LEARNING AND DEVELOPMENT ANALYST Acti ve * RETIRED Are you blind or do you have serious difficulty seeing, even when wearing glasses? Answer Date of Assessment Author Status No 07/25/2022 11:00 PM LEARNING AND DEVELOPMENT ANALYST Acti ve * Do you have serious difficulty walking or climbing stairs? Answer Date of Assessment Author Status No 07/25/2022 11:00 PM LEARNING AND DEVELOPMENT ANALYST Katie Vega ma, RN Active * Do you have difficulty dressing or bathing? Answer Date of Assessment Author Status No 07/25/2022 11:00 PM LEARNING AND DEVELOPMENT ANALYST Katie Vega ma, RN Active * Because of a physical, mental, or emotional condition, do you have difficulty doing errands alone such as visiting a doctor's office or shopping? Answer Date of Assessment Author Status No 07/25/2022 11:00 PM LEARNING AND DEVELOPMENT ANALYST Katie Vega ma, RN Active documented as of this encounter Mental Status * Because of a physical, mental, or emotional condition, do you have serious difficulty concentrating, remembering, or making decisions? Answer Entry Date Author Status No 07/25/2022 11:00 PM LEARNING AND DEVELOPMENT ANALYST Katie Vega ma, RN Active documented [...] no known notable events for this encounter. NING AND DEVELOPMENT ANALYST * Anesthesia Procedure Notes - Amarjit Suarez CRNA - 08/02/2022 8:52 AM LEARNING AND DEVELOPMENT ANALYST Associated Order(s): Art Line Art Line Date/Time: 08/02/2022 7:53 AM Performed by: Amarjit Suarez CRNA Authorized by: Mika Kang MD Patient Location: OR Placed Outside of This Facility?: No Size: 20 Orientation: Left Location: Radial Site Prep: Chlorhexadine Local Anesthetic: None Insertion Attempts: 1 Ultrasound-guided Placement: No Secure Method: Taped Patient Tolerance: Tolerated well NING AND DEVELOPMENT ANALYST * Anesthesia Preprocedure Evaluation - Mika Kang [...] patient of whom consent was obtained. . NING AND DEVELOPMENT ANALYST NING AND DEVELOPMENT ANALYST NING AND DEVELOPMENT ANALYST documented in this encounter Plan of Treatment Not on file documented as of this encounter Goals Goal Patient Goal Type Associated Problems Recent Progress Patient-Stated? Author Family - family caregiver with be involved in care transitions and discharge planning Lifestyle No Angela Dawkins, DONOR SPECIALIST documented as of this encounter Procedures Procedure Name Priority Date/Time Associated Diagnosis Comments ART LINE PLACEMENT Routine 08/02/2022 7: 53 AM LEARNING AND DEVELOPMENT ANALYST documented in this encounter Results * ART LINE PLACEMENT (08/02/2022 7:53 AM LEARNING AND DEVELOPMENT ANALYST) Narrative Amarjit Suarez CRNA - 08/02/2022 7:53 AM LEARNING AND DEVELOPMENT ANALYST Amarjit Suarez CRNA ? 08/02/2022 ??8:52 AM Art Line Date/Time: 08/02/2022 7:53 AM Performed by: Amarjit Suarez CRNA Authorized by: Mika Kang MD Patient Location: ??OR Placed Outside of This Facility?: ??No Size: ??20 Orientation: ??Left Location: ??Radial Site Prep: ??Chlorhexadine Local Anesthetic: ??None Insertion Attempts: ??1 Ultrasound-guided Placement: ??No Secure Method: ??Taped Patient Tolerance: ??Tolerated well us Mika Kang MD [place] ANESTHESIA Final Result documented in this encounter Visit Diagnoses Not on filedocumented in this encounter Administered Medications Inactive Administered Medications - up to 3 most recent administrations Medication Order MAR Action Action Date Dose Rate Site fentaNYL (SUBLIMAZE) injection Intravenous, PRN, Starting on Zulema 08/02/22 at 0736, Until Zulema 08/02/22 at 0931, Anesthesia Intra-Op Given 08/02/2022 8:31 AM LEARNING AND DEVELOPMENT ANALYST 50 mcg Given 08/02/2022 8:23 AM LEARNING AND DEVELOPMENT ANALYST 50 mcg Given 08/02/2022 7:36 AM LEARNING AND DEVELOPMENT ANALYST 100 mcg lactated ringers infusion Intravenous, Continuous PRN, Starting on Zulema 08/02/22 at 0729, Until Zulema 08/02/22 at 0931, Anesthesia Intra-Op New Bag 08/02/2022 7:29 AM LEARNING AND DEVELOPMENT ANALYST lidocaine (PF) (XYLOCAINE) 1 % injection Intravenous, PRN, Starting on Zulema 08/02/22 at 0736, Until Zulema 08/02/22 at 0931, Anesthesia Intra-Op Given 08/02/2022 7:36 AM LEARNING AND DEVELOPMENT ANALYST 100 mg midazolam (VERSED) injection Intravenous, PRN, Starting on Zulema 08/02/22 at 0733, Until Zulema 08/02/22 at 0931, Anesthesia Intra-Op Given 08/02/2022 7:33 AM LEARNING AND DEVELOPMENT ANALYST 2 mg ondansetron (ZOFRAN) injection Intravenous, PRN, Starting on Zulema 08/02/22 at 0845, Until Zulema 08/02/22 at 0931, Anesthesia Intra-Op Given 08/02/2022 8:45 AM LEARNING AND DEVELOPMENT ANALYST 4 mg phenylephrine (REY-SYNEPHRINE) 10 mg in sodium chloride 0.9 % 250 mL infusion Intravenous, Continuous PRN, Starting on Zulema 08/02/22 at 0743, Until Zulema 08/02/22 at 0931, Anesthesia Intra-Op Rate/Dose Change 08/02/2022 8:52 AM LEARNING AND DEVELOPMENT ANALYST 40 mcg/min 60 mL/hr Rate/Dose Change 08/02/2022 8:40 AM LEARNING AND DEVELOPMENT ANALYST 60 mcg/min 90 mL/h r Restarted 08/02/2022 8:35 AM LEARNING AND DEVELOPMENT ANALYST 50 mcg/min 75 mL/hr propofol (DIPRIVAN) IV bolus Intravenous, PRN, Starting on Zulema 08/02/22 at 0737, Until Zulema 08/02/22 at 0931, Anesthesia Intra-Op Given 08/02/2022 9:06 AM LEARNING AND DEVELOPMENT ANALYST 40 mg Given 08/02/2022 7:37 AM LEARNING AND DEVELOPMENT ANALYST 120 mg rocuronium (ZEMURON) injection Intravenous, PRN, Starting on Zulema 08/02/22 at 0815, Until Zulema 08/02/22 at 0931, Anesthesia Intra-Op Given 08/02/2022 8:15 AM LEARNING AND DEVELOPMENT ANALYST 30 mg Given 08/02/2022 7:38 AM LEARNING AND DEVELOPMENT ANALYST 50 mg sodium chloride 0.9% infusion Intravenous, Continuous PRN, Starting on Zulema 08/02/22 at 0800, Until Zulema 08/02/22 at 0931, Anesthesia Intra-Op New Bag 08/02/2022 8:00 AM LEARNING AND DEVELOPMENT ANALYST sugammadex (BRIDION) injection Intravenous, PRN, Starting on Zulema 08/02/22 at 0846, Until Zulema 08/02/22 at 0931, Anesthesia Intra-Op Given 08/02/2022 8:46 AM LEARNING AND DEVELOPMENT ANALYST 200 mg documented in this encounter Care Teams Manufacturing Cost Estimator Relationship Specialty Start Date End Date Mark Carmichael DO [address] [place] [address] PCP - General FAMILY PRACTICE 07/22/22 documented as of this encounter
--- OUTSIDE RECORDS SUMMARY | 2024-08-20 14:27 | XMS_ITS | Encounter Summary ---
Author Organization [facility] Address [address] [place] [address]. [place] [address] [place] [address] Care Team Providers Care Thrill Performer Name Role Phone Mark Carmichael DO Primary Care Provider [phone] Encounter Details Date Type Department Care Team [...] Coronavirus/COVID-19? No / Unsure 07/31/2022 8:31 AM HOTEL BAGGAGE HANDLER documented as of this encounter Functional Status * RETIRED Are you deaf or do you have serious difficulty hearing Answer Date of Assessment Author Status No 07/25/2022 11:00 PM HOTEL BAGGAGE HANDLER Acti ve * RETIRED Are you blind or do you have serious difficulty seeing, even when wearing glasses? Answer Date of Assessment Author Status No 07/25/2022 11:00 PM HOTEL BAGGAGE HANDLER Acti ve * Do you have serious difficulty walking or climbing stairs? Answer Date of Assessment Author Status No 07/25/2022 11:00 PM HOTEL BAGGAGE HANDLER Katie Vega ma R, RN Active * Do you have difficulty dressing or bathing? Answer Date of Assessment Author Status No 07/25/2022 11:00 PM HOTEL BAGGAGE HANDLER Katie Vega ma, RN Active * Because of a physical, mental, or emotional condition, do you have difficulty doing errands alone such as visiting a doctor's office or shopping? Answer Date of Assessment Author Status No 07/25/2022 11:00 PM HOTEL BAGGAGE HANDLER Katie Vega ma, RN Active documented as of this encounter Mental Status * Because of a physical, mental, or emotional condition, do you have serious difficulty concentrating, remembering, or making decisions? Answer Entry Date Author Status No 07/25/2022 11:00 PM HOTEL BAGGAGE HANDLER Katie Vega ma, RN Active documented in this encounter Plan of Treatment Not on file documented as of this encounter Goals Goal Patient Goal Type Associated Problems Recent Progress Patient-Stated? Author Family - family caregiver with be involved in care transitions and discharge planning Lifestyle No Angela Dawkins, ALODIZE MACHINE OPERATOR documented as of this encounter Visit Diagnoses Not on filedocumented in this encounter Additional Health Concerns Infection Onset Date Last Indicated Resolved Time COVID-19 Rule Out 07/25/2022 07/25/2022 08/01/2022 12:32 AM HOTEL BAGGAGE HANDLER documented as of this encounter Care Teams Thrill Performer Relationship Specialty Start Date End Date Mark Carmichael DO [address] [place] [address] PCP - General FAMILY PRACTICE 07/22/22 documented as of this encounter
--- OUTSIDE RECORDS SUMMARY | 2024-08-20 14:27 | XMS_ITS | Encounter Summary ---
Author Organization [facility] Address [address] [place] [address]. [place] [address] [place] [address] Care Team Providers Care Fighting Vehicle Systems Maintainer Name Role Phone Mark Carmichael DO Primary Care Provider [phone] Encounter Details Date Type Department Care Team [...] Coronavirus/COVID-19? No / Unsure 07/30/2022 6:53 AM ASSEMBLY HAND documented as of this encounter Functional Status * RETIRED Are you deaf or do you have serious difficulty hearing Answer Date of Assessment Author Status No 07/25/2022 11:00 PM ASSEMBLY HAND Acti ve * RETIRED Are you blind or do you have serious difficulty seeing, even when wearing glasses? Answer Date of Assessment Author Status No 07/25/2022 11:00 PM ASSEMBLY HAND Acti ve * Do you have serious difficulty walking or climbing stairs? Answer Date of Assessment Author Status No 07/25/2022 11:00 PM ASSEMBLY HAND Katie Vega ma R, RN Active * Do you have difficulty dressing or bathing? Answer Date of Assessment Author Status No 07/25/2022 11:00 PM ASSEMBLY HAND Katie Vega ma, RN Active * Because of a physical, mental, or emotional condition, do you have difficulty doing errands alone such as visiting a doctor's office or shopping? Answer Date of Assessment Author Status No 07/25/2022 11:00 PM ASSEMBLY HAND Katie Vega ma, RN Active documented as of this encounter Mental Status * Because of a physical, mental, or emotional condition, do you have serious difficulty concentrating, remembering, or making decisions? Answer Entry Date Author Status No 07/25/2022 11:00 PM ASSEMBLY HAND Katie Vega ma, RN Active documented in this encounter Plan of Treatment Not on file documented as of this encounter Goals Goal Patient Goal Type Associated Problems Recent Progress Patient-Stated? Author Family - family caregiver with be involved in care transitions and discharge planning Lifestyle No Angela Dawkins, SIPHONER documented as of this encounter Visit Diagnoses Not on filedocumented in this encounter Additional Health Concerns Infection Onset Date Last Indicated Resolved Time COVID-19 Rule Out 07/25/2022 07/25/2022 08/01/2022 12:32 AM ASSEMBLY HAND documented as of this encounter Care Teams Fighting Vehicle Systems Maintainer Relationship Specialty Start Date End Date Mark Carmichael DO [address] [place] [address] PCP - General FAMILY PRACTICE 07/22/22 documented as of this encounter
--- OUTSIDE RECORDS SUMMARY | 2024-08-20 14:27 | XMS_ITS | Encounter Summary ---
Author Organization [facility] Address [facility] [place] [address] [place] [address] Care Team Providers Care Pillow Agent Name Role Phone IrenaJoe garcia Primary Care Provider [phone] Reason for Visit * Auth/Cert (Routine) Specialty Diagnoses / Procedures Referred By Contac t Referred To Contact Diagnoses Respiratory failure (CMS/HCC [facility]/HCC) Acute respiratory failure Respiratory failure ([facility]) Procedures NONE De Villasenor MD [address] [place] [address] Phone: tel: fax: Referral ID Status Reason Start Date Expiration Date Visits Re quested Visits Authorized [id number] 1 1 Encounter Details Date Type Department Care Team (Late st Contact Info) Description 08/02/2022 7:30 AM NATIONAL FACILITIES MANAGER - 08/02/2022 9:53 AM NATIONAL FACILITIES MANAGER [facility] [address] [place] [address] Ross Blackburn MD [address] [place] [address] THORACOSCOPY (VATS) WITH RIGHT DECORICATION [...] Coronavirus/COVID-19? No / Unsure 07/31/2022 8:31 AM NATIONAL FACILITIES MANAGER documented as of this encounter Last Filed Vital Signs Vital Sign Reading Time Taken Comments Blood Pressure 104/45 08/02/2022 9:51 AM NATIONAL FACILITIES MANAGER Pulse 63 08/02/2022 9:51 AM NATIONAL FACILITIES MANAGER Temperature 36.1 ??C (97 ??F) 08/02/2022 9:25 AM NATIONAL FACILITIES MANAGER Respiratory Rate 18 08/02/2022 9:51 AM NATIONAL FACILITIES MANAGER Oxygen Saturation 95% 08/02/2022 9:42 AM NATIONAL FACILITIES MANAGER Inhaled Oxygen Concentration - - Weight 67.5 kg (148 lb 12.8 oz) 07/28/2022 3:26 AM NATIONAL FACILITIES MANAGER Height 165.1 cm (5' 5 ) 07/25/2022 1:30 PM NATIONAL FACILITIES MANAGER Body Mass Index 24.76 07/25/2022 1:30 PM NATIONAL FACILITIES MANAGER documented in this encounter Functional Status * Question Answer Date of Assessment Author Status Do you have serious difficulty walking or climbing stairs? No 07/25/2022 11:00 PM NATIONAL FACILITIES MANAGER Noelle Vega RN Active * Question Answer Date of Assessment Author Status Do you have difficulty dressing or bathing? No 07/25/2022 11:00 PM NATIONAL FACILITIES MANAGER Nan Vega RN Active Because of a physical, mental, or emotional condition, do you have difficulty doing errands alone such as visiting a doctor's office or shopping? No 07/25/2022 11:00 PM NATIONAL FACILITIES MANAGER Noelle Vega RN Active * RETIRED Are you deaf or do you have serious difficulty hearing Answer Date of Assessment Author Status No 07/25/2022 11:00 PM NATIONAL FACILITIES MANAGER Acti ve * RETIRED Are you blind or do you have serious difficulty seeing, even when wearing glasses? Answer Date of Assessment Author Status No 07/25/2022 11:00 PM NATIONAL FACILITIES MANAGER Acti ve * Do you have serious difficulty walking or climbing stairs? Answer Date of Assessment Author Status No 07/25/2022 11:00 PM NATIONAL FACILITIES MANAGER Katie Vega ma RN Active * Do you have difficulty dressing or bathing? Answer Date of Assessment Author Status No 07/25/2022 11:00 PM NATIONAL FACILITIES MANAGER Katie Vega ma RN Active * Because of a physical, mental, or emotional condition, do you have difficulty doing errands alone such as visiting a doctor's office or shopping? Answer Date of Assessment Author Status No 07/25/2022 11:00 PM NATIONAL FACILITIES MANAGER Katie Vega ma RN Active documented [...] Physician Discharge Summary Patient ID: Ray Phillips [id number] 67-year-old 1955 Primary care physician:JOE TAM DO [...] please fax to [facility] at [phone] - Please follow-up with [facility] in 3 weeks, please call [phone] to schedule a follow-up apt - Risks of indwelling line/longwall shearer operator IV antibiotics discussed with patient (including C. [...] in stable condition Thank you for choosing [facility] HOSPITALIST SERVICE -PLEASE CALL [phone] ext [phone] IF QTS Code Status: Prior [...] decubitus position on the CT table and Marcell protocol was observed to verify correct patient, [...] CT. The tract was dilated to 12 Nicaraguan. During dilation, there was temporary retraction of the wire resulting in slight kinking and difficulty advancing the tube. Access was again regained using theone-step sheath needle, followed again by CT confirmation of position, wire placement, and tract dilation. A 12-Nicaraguan pigtail drainage catheter with the locking stitch [...] Date: 07/28/2022 Echocardiography Report Pat.Name: RAY PHILLIPS.ID: [id number] .Date: 07/27/2022 Refer.: [id number] NON-STAFF PROVIDER EWDPROV EWDPROV Exam Time: 12:44:00 PM Study Type:ECHO WITH CARDIAC DOPPLER COMP Height: 165 cm Weight: 68 kg BSA: 1.75 m2 Age: 9 1955,67Y Sex: M BP: 138/68 HR: 70 bpm Sonogrphr: Avery Marie [facility] Pat. Stat.:Inpatient Room: 742 [facility] - 4: [id number] Reason for Study:Pericardial effusion Procedures: 2D, M-mode, [...] Mass 2D Value 229 g LV Mass Kxyqi0R Value 131 g/m2 Right Ventricle Right Ventricle [...] Procedure: Midline venous catheter placement. Grafts/Implants: 4 Nicaraguan midlinevenous catheter Interventional Radiologist: Óscar Mechanical Engineering Officer: ANSON Keating tech Anesthesia: Local - 1% [...] centrally. Peel-away sheath was placed. A 4 Nicaraguan single lumen midline, 20 cm.This was advanced [...] Disposition: HOME WITH HOME HEALTH @DOCUMENTATION OF [id number] ENCOUNTER FOR HOME HEALTH I attest that a Qjtx-fa-Mncy encounter with Ray Phillips was made on [...] are for medical reasons,or for attendance at yazidi events; absences from home for nonmedical reasons [...] WHEN ANTIBIOTICS COMPLETED Patti Pineda MD [address] [facility] [address] Follow up in 1 week(s) Joe Tam DO [address] [facility] [address] Follow up in 1 week(s) Zoila Farias MD [address] [facility] [address] Follow up in 2 week(s) Ross Blackburn MD [address] [facility] [address] Follow up in 1 month(s) Follow up labs neededWhile on IV antibiotics, obtain weekly labs - CBC and CMP, please fax to [facility] at [phone] Follow up instructions ABOVE Discharge time spent: 35 minutes Signed: LANRE WINTER MD 08/08/2022 2:16 PM ONAL FACILITIES MANAGER documented in this encounter Discharge Instructions * Discharge Instructions* Raquel Wetzel MD - 08/07/2022 7:16 AM NATIONAL FACILITIES MANAGER ACTIVITY Your smaller incision will take about [...] the Cardiothoracic Surgery at any time at [phone] ONAL FACILITIES MANAGER documented in this encounter Medications at Time [...] D/C plans IDBR done with Dr Winter [facility] to discuss POC/D/C plans. See notes below. 08/08/22924 Interdisciplinary Group Conference Team Members Present Physician;Case/Care management Barriers to Discharge Barriers Other (Comment) Other (Comment)follow up D/C to home with [facility] and [facility] for IV supplies. ONAL FACILITIES MANAGER * Lanre Winter MD - 08/07/2022 2:04 [...] Procedure Component Value Units Date/Time CULTURE, ANAEROBIC [[id number]] Collected: 08/02/22837 Order Status: Completed Lab Status: Final result Updated: 08/07/22 0910 Specimen: TISSUE from OTHER (type in comments) Spec. Description TISSUE: RT DECORTICATION TISU Special Requests: NO SPECIAL REQUEST Culture Result: NO ANAEROBES ISOLATED CULTURE TB/AFB OTHER (TYPE IN COMMENTS) [[id number]] Collected: 08/02/22837 Order Status: Sent Lab Status: In process Updated: 08/02/22 1009 Specimen: TISSUE from OTHER (type in comments) CULTURE, FUNGUS [[id number]] Collected: 08/02/22837 Order Status: Sent Lab Status: In process Updated: 08/02/22 1010 Specimen: TISSUE from OTHER (type in comments) CULTURE, TISSUE W/GRAM STAIN [[id number]] Collected: 08/02/22837 Order Status: Completed Lab Status: Final result Updated: 08/07/22 1136 Specimen: TISSUE from OTHER (type in comments) Spec. Description TISSUE: RT DECORTICATION TISU Special Requests: NO SPECIAL REQUEST Gram Stain Result -- MODERATE NEUTROPHILS SEEN Gram Stain Result NO ORGANISMS SEEN Culture Result: NO GROWTH 5 DAYS SMEAR,FLUOR STAIN,ACID FAST [[id number]] Collected: 08/02/22837 Order Status: Completed Lab Status: Final result Updated: 08/05/221944 ACID FAST SMEAR RESULT SEE NOTE 08/05/2022 07:45 PM Comment: Test Result Flag Unit RefValue Acid Fast Smear For Mycobacterium SOURCE: LUNG, RIGHT, RT DECORTICATION TIS ACID FAST SMEAR FOR MYCOBACTERIUM FINAL Negative. Test Performed by: [place] [address] Retail Sales Lead: Brent Alcaraz M.D. Ph.D.; CLIA# [id number] CULTURE, FUNGUS [[id number]] Order Status: No result Lab Status: No result Specimen: BRONCHOALVEO LAV, RT LWR CULTURE TB/AFB OTHER (TYPE IN COMMENTS) [[id number]] Order Status: No result Lab Status: No result Specimen: BRONCHOALVEO LAV, RT LWR SMEAR,FLUOR STAIN,ACID FAST [[id number]] Order Status: No result Lab Status: No result Specimen: BRONCHOALVEO LAV, RT LWR CULTURE VIRAL RESPIRATORY RAPID [[id number]] Order Status: No result Lab Status: No result Specimen: BRONCHOALVEO LAV, RT LWR CULTURE RESPIRATORY W/ GRAM STAIN [[id number]] Order Status: No result Lab Status: No result Specimen: BRONCHIAL WASHING CULTURE, FUNGUS [[id number]] Order Status: No result Lab Status: No result Specimen: BRONCHIAL WASHING CULTURE TB/AFB OTHER (TYPE IN COMMENTS) [[id number]] Order Status: No result Lab Status: No result Specimen: BRONCHIAL WASHING SMEAR,FLUOR STAIN,ACID FAST [[id number]] Order Status: No result Lab Status: No result Specimen: BRONCHIAL WASHING CULTURE VIRAL RESPIRATORY RAPID [[id number]] Order Status: No result Lab Status: No result Specimen: BRONCHIAL WASHING CULTURE, QUANTITATIVE W/ GRAM STAIN [[id number]] Order Status: No result Lab Status: No result Specimen: BRONCHOALVEO LAV, RT LWR CULTURE, FUNGUS [[id number]] Collected: 07/30/22 153 Order Status: No result Lab Status: In process Updated: 07/30/22 1701 CULTURE RESPIRATORY W/ GRAM STAIN [[id number]] Collected: 07/30/22 153 Order Status: Completed Lab Status: Final result Updated: 08/03/22 1228 Specimen: SITE Spec. Description SITE: BRONCH WASH Special Requests: NO SPECIAL REQUEST Gram Stain Result -- MANY NEUTROPHILS SEEN Gram Stain Result NO ORGANISMS SEEN Culture Result: -- FEW TETE ALBICANS SMEAR,FLUOR STAIN,ACID FAST [[id number]] Collected: 07/30/221529 Order Status: Completed Lab Status: Final result Updated: 08/01/22 2318 ACID FAST SMEAR RESULT SEE NOTE 08/01/2022 11:18 PM Comment: Test Result Flag Unit RefValue Acid Fast Smear For Mycobacterium SOURCE: BRONCHIAL WASHING, BWASH/BAL MIX ACID FAST SMEAR FOR MYCOBACTERIUM FINAL Negative. Test Performed by: [place] [address] Retail Sales Lead: Brent Alcaraz M.D. Ph.D.; CLIA# [id number] CULTURE TB/AFB OTHER [[id number]] Collected: 07/30/221529 Order Status: No result Lab Status: In process Updated: 07/30/22 1704 CULTURE, QUANTITATIVE W/ GRAM STAIN [[id number]] Collected: 07/30/221529 Order Status: Completed Lab Status: Final result Updated: 08/02/22 1457 Specimen: SITE Spec. Description SITE: BAL RLL Special Requests: NO SPECIAL REQUEST Gram Stain Result <10 NEUTROPHILS PER LPF Gram Stain Result <10 EPITHELIAL CELLS PER LPF Gram Stain Result -- RARE GRAM NEGATIVE RODS Culture Result: -- 500 CFU/ML YEAST , ID UPON REQUEST CULTURE, FUNGUS [[id number]] Collected: 07/30/221529 Order Status: Canceled Lab Status: No result SMEAR,FLUOR STAIN,ACID FAST [[id number]] Collected: 07/30/221529 Order Status: Canceled Lab Status: No result CULTURE TB/AFB OTHER [[id number]] Collected: 07/30/221529 Order Status: Canceled Lab Status: No result CULTURE CMV [[id number]] Collected: 07/30/221529 Order Status: Completed Lab Status: Final result Updated: 08/06/22 1738 CYTOMEGALOVIRUS CULTURE REPORT Comment: CMV Rapid Culture SOURCE : BAL RESULT Not Isolated Reference Range: Not Isolated Test Performed by [facility], [address] [place], [place] Adrián Balderas M.D., Ph.D., Director of Laboratories , CLIA [id number] SPECIMEN SOURCE BAL/BWASH MIX IN VTM 1 TO 1 RATIO, FRZ NEG 70 CULTURE HERPES [[id number]] Collected: 07/30/22 1530 Order Status: Completed Lab Status: Final result Updated: 08/03/22 1542 HERPES SIMPLEX VIRUS CULTURE REPORT Comment: Herpes Simplex Virus Culture SOURCE : BAL/BWASH MIX IN RESULT Not Isolated Reference Range: Not Isolated Test Performed by [facility], [address] [place] [address] Adrián Balderas M.D., Ph.D., Director of Laboratories , CLIA [id number] Specimen Type BAL/BWASH MIX IN VTM 1 TO 1 RATIO, FRZ NEG 70 CULTURE VIRAL RESPIRATORY RAPID [[id number]] Collected: 07/30/22 1530 Order Status: Completed Lab Status: Final result Updated: 08/05/22 1522 VIRAL RESP RAPID CULTURE W/RFX REPORT Comment: Respiratory Culture Screen SOURCE : BWASH/BAL MIX IN RESULT Negative for Influenza virus, types A and B, Parainfluenza viruses 1,2 # 3, Adenovirus, and Respiratory Syncytial virus. Reference range: Negative Rapid Respiratory Viruses Not indicated Test Performed by [facility], [address] [place], [place] Adrián Balderas M.D., Ph.D., Director of Laboratories , CLIA [id number] Specimen Type BWASH/BAL MIX IN VTM 1 TO 1 RATIO, FRZ NEG 70 CULTURE RESPIRATORY W/ GRAM STAIN [[id number]] Collected: 07/28/22 1425 Order Status: Completed Lab [...] -- MODERATE PRESUMPTIVE TETE ALBICANS CULTURE, FUNGUS [[id number]] Collected: 07/28/221424 Order Status: Sent Lab Status: In process Updated: 07/31/22 133 Specimen: SPUTUM, EXPECTORATED CULTURE TB/AFB OTHER (TYPE IN COMMENTS) [[id number]] Collected: 07/28/221424 Order Status: Canceled Lab Status: No result Specimen: SPUTUM, EXPECTORATED SMEAR,FLUOR STAIN,ACID FAST [[id number]] Collected: 07/28/221424 Order Status: No result Lab Status: In process Updated: 07/28/22 1612 HISTOPLASMA ANTIGEN [[id number]] Collected: 07/28/221423 Order Status: Sent Lab Status: No result Specimen: BLOOD HISTOPLASMA ANTIGEN [[id number]] Collected: 07/28/221423 Order Status: Canceled Lab Status: No result Specimen: BLOOD GLUCOSE, BODY FLUID [[id number]] Order Status: Canceled Lab Status: No result Specimen: PLEURAL FLUID PH BODY FLUID [[id number]] Order Status: Canceled Lab Status: No result Specimen: PLEURAL FLUID CULTURE, BODY FLUID W/ GRAM STAIN [[id number]] Order Status: Canceled Lab Status: No result Specimen: PLEURAL FLUID CULTURE, ANAEROBIC [[id number]] Order Status: Canceled Lab Status: No result Specimen: PLEURAL FLUID CULTURE, FUNGUS [[id number]] Order Status: Canceled Lab Status: No result Specimen: PLEURAL FLUID LDH BODY FLUID [[id number]] Collected: 07/27/22 103 Order Status: Completed Lab Status: Final result Updated: 07/27/22 152 Specimen: PLEURAL FLUID FLUID LDH >4,000 UNITS/L Comment: REFERENCE RANGE NOT ESTABLISHED FOR THIS BODY FLUID. SOURCE (FLUID) PLEURAL FLUID CELL COUNT W/ DIFF BODY FLUID [[id number]] Collected: 07/27/22 1030 Order Status: Completed Lab Status: Final result Updated: 07/27/22 1545 Specimen: PLEURAL FLUID SOURCE (FLUID) PLEURAL FLUID FL WBC 144.450 x10'3/uL Comment: REFERENCE RANGE NOT ESTABLISHED FL RBC 0.090 x10'6/uL Comment: REFERENCE RANGE NOT ESTABLISHED DIFFERENTIAL MANUAL DIFFERENTIAL PERFORMED ON CONCENTRATED CYTOSPIN CELLS COUNTED 100 No COUNTED SEGS (FLUID) 97 % LYMPHS (FLUID) 3 % PROTEIN TOTAL FLUID [[id number]] Collected: 07/27/221029 Order Status: Completed Lab Status: Final result Updated: 07/27/22 152 Specimen: PLEURAL FLUID PROTEIN (FLUID) 3.5 G/DL Comment: REFERENCE RANGE NOT ESTABLISHED FOR THIS BODY FLUID. SOURCE (FLUID) PLEURAL FLUID CULTURE, BODY FLUID W/ GRAM STAIN [[id number]] Collected: 07/27/221029 Order Status: Canceled Lab Status: No result Specimen: PLEURAL FLUID CULTURE, ANAEROBIC [[id number]] Collected: 07/27/221029 Order Status: Canceled Lab Status: No result Specimen: PLEURAL FLUID CULTURE, BODY FLUID W/ GRAM STAIN [[id number]] (Susceptibility) Collected: 07/27/221029 Order Status: Completed Lab [...] Sensitive TRIMETH-SULFAMETH. Resistant VANCOMYCIN Sensitive CULTURE, ANAEROBIC [[id number]] (Susceptibility) Collected: 07/27/221029 Order Status: Completed Lab Status: Final result Updated: 08/01/22 08 Specimen: SITE Spec. Description SITE: RT PLEURAL FLUID Special Requests: NO SPECIAL REQUEST Culture Result: -- FEW MICROAEROPHILIC STREPTOCOCCUS Susceptibility Microaerophilic streptococcus ARLEN (ETEST) CEFOTAXIME 0.023 Sensitive PENICILLIN G 0.008 Sensitive BLASTOMYCES AG MVISTA (TM), EIA [[id number]] Order Status: No result Lab Status: No result Specimen: BLOOD BLASTOMYCES AG MVISTA (TM), EIA [[id number]] Order Status: No result Lab Status: No result Specimen: URINE CORONAVIRUS (COVID 19) PCR - Asymptomatic patients, may be completed at physician discretion [[id number]] Collected: 07/25/222031 Order Status: Canceled Lab Status: No result Specimen: NASOPHARYNGEAL SWAB STREP PNEUMO AG URINE [[id number]] Collected: 07/25/222030 Order Status: Completed Lab Status: [...] Type URINE VOIDED MRSA PCR nares Screening [[id number]] Collected: 07/25/222030 Order Status: Canceled Lab Status: No result Specimen: NASAL CULTURE, BACTERIA, BLOOD [[id number]] Collected: 07/25/221416 Order Status: Completed Lab Status: Final result Updated: 07/30/222144 Specimen: BLOOD Spec. Description BLOOD Special Requests: NO SPECIAL REQUEST Culture Result: NO GROWTH 5 DAYS CULTURE, BACTERIA, BLOOD [[id number]] Collected: 07/25/221415 Order Status: Completed Lab Status: [...] with the following history as recorded in [facility]: Problem List Items Addressed This Visit [...] up LANRE WINTER MD 2:04 PM 08/07/2022 ONAL FACILITIES MANAGER * Angela Dawkins RN - 08/07/2022 10:15 AM CSTSummary: D/C plans IDBR done with Dr Winter [facility] to discuss POC/D/C plans. See notes below. [address] Winter about making pt Gen with tele status-Pt can downgrade to Gen with Tele status. Let Aissatou Borges RN 7th liquid floor and wall applier know this info. 1330 Cost of IV meds: $100.55 per week. Shirley Gaffney spoke with pt about this and pt is agreeable with cost. 1530 Pt/ and ALANNAH Adam thought he was going home today. I spoke with Marceol Watson, meds cannot be delivered till [place] 08/09 and [facility] plans to see pt Zule[place]. Let Dr Winter, pt/, pt's ALANNAH Adam know this info. 08/07/22 1015 Interdisciplinary Group Conference Team Members Present Case/Care management;Physician Barriers to Discharge Barriers Not Medically ready Not Medically ready follow up Continue IMC status. On IV antibiotics through 08/30/22. CM spoke with pt/ about [facility] and [facility] about D/C plans possibly for 08/08/22. They chose [facility] for HHS agency. Ref sent/called to Shirley at [facility] and Doc jorge to [facility] about referral. ONAL FACILITIES MANAGER ONAL FACILITIES MANAGER ONAL FACILITIES MANAGER * Raquel Wetzel MD - 08/07/2022 7:17 [...] Ross Blackburn MD at 08/09/2022 8:49 AM NATIONAL FACILITIES MANAGER ONAL FACILITIES MANAGER ONAL FACILITIES MANAGER * Merary Langley RN - 08/07/2022 2:34 [...] Goal: Absence of venous thromboembolism Outcome: Progressing ONAL FACILITIES MANAGER * Maggie Fong MD - 08/06/2022 3:24 PM CSTSummary: [facility] Progress note [facility] INFECTIOUS DIS[facility] PROGRESS NOTE Attending Provider:Dr. Fong PCP: JOE TAM DO Reason for Consultation: Loculated pleural effusions, Pneumonia ASSESSMENT AND PLAN Ray Phillips is a 67-year-old male with medical history of chronic tobacco use who was transferred from [facility] near [place] for treatment resistant pneumonia and loculated pleural [...] CBC and CMP, please fax to [facility] at [phone] - Please follow-up with [facility] in 3 weeks, please call [phone] to schedule a follow-up apt - Risks of indwelling line/longwall shearer operator IV antibiotics discussed with patient (including C. diff) -Plan as above discussed with patient, all voiced questions/concerns addressed, voiced agreement and understanding with plan. Thank you for consulting [facility] Infectious Disease. Paulina Dale NP 08/06/22 [facility] ATTENDING I, MAGGIE FONG MD, performed an examination of the patient and discussed the management with the TAPE MAKER. I reviewed the TAPE MAKER's progress note and agree with the findings [...] date Antimicrobial Regimen Unknown Abx regiment at [facility] Vancomycin IV 1.25g every 24h(07/25 - [...] puff, Inhalation, Q4H PRN, Tracy oY MD ??? alteplase (CATHFLO) injection, , , [...] Tracy Yo MD, 100 mg at 08/05/222051 ONAL FACILITIES MANAGER ONAL FACILITIES MANAGER ONAL FACILITIES MANAGER * Ilana Dove RRT - 08/06/2022 2:45 [...] Charge $ Home Oxygen Evaluation Charge Yes ONAL FACILITIES MANAGER * Nimisha Meyer RD - 08/06/2022 2:28 PM CST CLINICAL DIETITIAN RESCREEN Patient is a 67-year-old male admitted secondary to Respiratory failure ([facility]) [J96.90]. Past Medical History: Diagnosis Date ??? [...] Start nutrition assessment NIMISHA MEYER RD, LDN ONAL FACILITIES MANAGER * Lanre Winter MD - 08/06/2022 2:03 [...] Procedure Component Value Units Date/Time CULTURE, ANAEROBIC [[id number]] Collected: 08/02/22837 Order Status: Completed Lab Status: Preliminary result Updated: 08/03/22 1524 Specimen: TISSUE from OTHER (type in comments) Spec. Description TISSUE: RT DECORTICATION TISU Special Requests: NO SPECIAL REQUEST Culture Result: -- NO ANAEROBES ISOLATED TO DATE CULTURE TB/AFB OTHER (TYPE IN COMMENTS) [[id number]] Collected: 08/02/22837 Order Status: Sent Lab Status: In process Updated: 08/02/22 1009 Specimen: TISSUE from OTHER (type in comments) CULTURE, FUNGUS [[id number]] Collected: 08/02/22837 Order Status: Sent Lab Status: In process Updated: 08/02/22 1010 Specimen: TISSUE from OTHER (type in comments) CULTURE, TISSUE W/GRAM STAIN [[id number]] Collected: 08/02/22837 Order Status: Completed Lab Status: Preliminary result Updated: 08/06/22 1203 Specimen: TISSUE from OTHER (type in comments) Spec. Description TISSUE: RT DECORTICATION TISU Special Requests: NO SPECIAL REQUEST Gram Stain Result -- MODERATE NEUTROPHILS SEEN Gram Stain Result NO ORGANISMS SEEN Culture Result: NO GROWTH 4 DAYS SMEAR,FLUOR STAIN,ACID FAST [[id number]] Collected: 08/02/22837 Order Status: Completed Lab Status: Final result Updated: 08/05/221944 ACID FAST SMEAR RESULT SEE NOTE 08/05/2022 07:45 PM Comment: Test Result Flag Unit RefValue Acid Fast Smear For Mycobacterium SOURCE: LUNG, RIGHT, RT DECORTICATION TIS ACID FAST SMEAR FOR MYCOBACTERIUM FINAL Negative. Test Performed by: [facility] - [address] [address] Retail Sales Lead: Brent Alcaraz M.D. Ph.D.; CLIA# [id number] CULTURE, FUNGUS [[id number]] Order Status: No result Lab Status: No result Specimen: BRONCHOALVEO LAV, RT LWR CULTURE TB/AFB OTHER (TYPE IN COMMENTS) [[id number]] Order Status: No result Lab Status: No result Specimen: BRONCHOALVEO LAV, RT LWR SMEAR,FLUOR STAIN,ACID FAST [[id number]] Order Status: No result Lab Status: No result Specimen: BRONCHOALVEO LAV, RT LWR CULTURE VIRAL RESPIRATORY RAPID [[id number]] Order Status: No result Lab Status: No result Specimen: BRONCHOALVEO LAV, RT LWR CULTURE RESPIRATORY W/ GRAM STAIN [[id number]] Order Status: No result Lab Status: No result Specimen: BRONCHIAL WASHING CULTURE, FUNGUS [[id number]] Order Status: No result Lab Status: No result Specimen: BRONCHIAL WASHING CULTURE TB/AFB OTHER (TYPE IN COMMENTS) [[id number]] Order Status: No result Lab Status: No result Specimen: BRONCHIAL WASHING SMEAR,FLUOR STAIN,ACID FAST [[id number]] Order Status: No result Lab Status: No result Specimen: BRONCHIAL WASHING CULTURE VIRAL RESPIRATORY RAPID [[id number]] Order Status: No result Lab Status: No result Specimen: BRONCHIAL WASHING CULTURE, QUANTITATIVE W/ GRAM STAIN [[id number]] Order Status: No result Lab Status: No result Specimen: BRONCHOALVEO LAV, RT LWR CULTURE, FUNGUS [[id number]] Collected: 07/30/221529 Order Status: No result Lab Status: In process Updated: 07/30/22 1701 CULTURE RESPIRATORY W/ GRAM STAIN [[id number]] Collected: 07/30/22 153 Order Status: Completed Lab Status: Final result Updated: 08/03/22 1228 Specimen: SITE Spec. Description SITE: BRONCH WASH Special Requests: NO SPECIAL REQUEST Gram Stain Result -- MANY NEUTROPHILS SEEN Gram Stain Result NO ORGANISMS SEEN Culture Result: -- FEW TETE ALBICANS SMEAR,FLUOR STAIN,ACID FAST [[id number]] Collected: 07/30/22 1530 Order Status: Completed Lab Status: Final result Updated: 08/01/22 2319 ACID FAST SMEAR RESULT SEE NOTE 08/01/2022 11:18 PM Comment: Test Result Flag Unit RefValue Acid Fast Smear For Mycobacterium SOURCE: BRONCHIAL WASHING, BWASH/BAL MIX ACID FAST SMEAR FOR MYCOBACTERIUM FINAL Negative. Test Performed by: [facility] - [address] [address] Retail Sales Lead: Brent Alcaraz M.D. Ph.D.; CLIA# [id number] CULTURE TB/AFB OTHER [[id number]] Collected: 07/30/221529 Order Status: No result Lab Status: In process Updated: 07/30/22 1704 CULTURE, QUANTITATIVE W/ GRAM STAIN [[id number]] Collected: 07/30/221529 Order Status: Completed Lab Status: Final result Updated: 08/02/22 1457 Specimen: SITE Spec. Description SITE: BAL RLL Special Requests: NO SPECIAL REQUEST Gram Stain Result <10 NEUTROPHILS PER LPF Gram Stain Result <10 EPITHELIAL CELLS PER LPF Gram Stain Result -- RARE GRAM NEGATIVE RODS Culture Result: -- 500 CFU/ML YEAST , ID UPON REQUEST CULTURE, FUNGUS [[id number]] Collected: 07/30/221529 Order Status: Canceled Lab Status: No result SMEAR,FLUOR STAIN,ACID FAST [[id number]] Collected: 07/30/221529 Order Status: Canceled Lab Status: No result CULTURE TB/AFB OTHER [[id number]] Collected: 07/30/221529 Order Status: Canceled Lab Status: No result CULTURE CMV [[id number]] Collected: 07/30/221529 Order Status: No result Lab Status: In process Updated: 07/31/22 1431 CULTURE HERPES [[id number]] Collected: 07/30/221529 Order Status: Completed Lab Status: Final result Updated: 08/03/22 154 HERPES SIMPLEX VIRUS CULTURE REPORT Comment: Herpes Simplex Virus Culture SOURCE : BAL/BWASH MIX IN RESULT Not Isolated Reference Range: Not Isolated Test Performed by Javier Benítez, [employer] [facility], [address] [place] [address] Adrián Balderas M.D., Ph.D., Director of Laboratories , CLIA [id number] Specimen Type BAL/BWASH MIX IN VTM 1 TO 1 RATIO, FRZ NEG 70 CULTURE VIRAL RESPIRATORY RAPID [[id number]] Collected: 07/30/22 1530 Order Status: Completed Lab Status: Final result Updated: 08/05/22 1522 VIRAL RESP RAPID CULTURE W/RFX REPORT Comment: Respiratory Culture Screen SOURCE : BWASH/BAL MIX IN RESULT Negative for Influenza virus, types A and B, Parainfluenza viruses 1,2 # 3, Adenovirus, and Respiratory Syncytial virus. Reference range: Negative Rapid Respiratory Viruses Not indicated Test Performed by [employer] [place], [employer] [facility], [address] [place], [place] Adrián Balderas M.D., Ph.D., Director of Laboratories , CLIA [id number] Specimen Type BWASH/BAL MIX IN VTM 1 TO 1 RATIO, FRZ NEG 70 CULTURE RESPIRATORY W/ GRAM STAIN [[id number]] Collected: 07/28/221424 Order Status: Completed Lab Status: [...] -- MODERATE PRESUMPTIVE TETE ALBICANS CULTURE, FUNGUS [[id number]] Collected: 07/28/221424 Order Status: Sent Lab Status: In process Updated: 07/31/22 1336 Specimen: SPUTUM, EXPECTORATED CULTURE TB/AFB OTHER (TYPE IN COMMENTS) [[id number]] Collected: 07/28/221424 Order Status: Canceled Lab Status: No result Specimen: SPUTUM, EXPECTORATED SMEAR,FLUOR STAIN,ACID FAST [[id number]] Collected: 07/28/221424 Order Status: No result Lab Status: In process Updated: 07/28/22 1612 HISTOPLASMA ANTIGEN [[id number]] Collected: 07/28/221423 Order Status: Sent Lab Status: No result Specimen: BLOOD HISTOPLASMA ANTIGEN [[id number]] Collected: 07/28/22 1424 Order Status: Canceled Lab Status: No result Specimen: BLOOD GLUCOSE, BODY FLUID [[id number]] Order Status: Canceled Lab Status: No result Specimen: PLEURAL FLUID PH BODY FLUID [[id number]] Order Status: Canceled Lab Status: No result Specimen: PLEURAL FLUID CULTURE, BODY FLUID W/ GRAM STAIN [[id number]] Order Status: Canceled Lab Status: No result Specimen: PLEURAL FLUID CULTURE, ANAEROBIC [[id number]] Order Status: Canceled Lab Status: No result Specimen: PLEURAL FLUID CULTURE, FUNGUS [[id number]] Order Status: Canceled Lab Status: No result Specimen: PLEURAL FLUID LDH BODY FLUID [[id number]] Collected: 07/27/221029 Order Status: Completed Lab Status: Final result Updated: 07/27/221521 Specimen: PLEURAL FLUID FLUID LDH >4,000 UNITS/L Comment: REFERENCE RANGE NOT ESTABLISHED FOR THIS BODY FLUID. SOURCE (FLUID) PLEURAL FLUID CELL COUNT W/ DIFF BODY FLUID [[id number]] Collected: 07/27/221029 Order Status: Completed Lab Status: Final result Updated: 07/27/22 154 Specimen: PLEURAL FLUID SOURCE (FLUID) PLEURAL FLUID FL WBC 144.450 x10'3/uL Comment: REFERENCE RANGE NOT ESTABLISHED FL RBC 0.090 x10'6/uL Comment: REFERENCE RANGE NOT ESTABLISHED DIFFERENTIAL MANUAL DIFFERENTIAL PERFORMED ON CONCENTRATED CYTOSPIN CELLS COUNTED 100 No COUNTED SEGS (FLUID) 97 % LYMPHS (FLUID) 3 % PROTEIN TOTAL FLUID [[id number]] Collected: 07/27/221029 Order Status: Completed Lab Status: Final result Updated: 07/27/221521 Specimen: PLEURAL FLUID PROTEIN (FLUID) 3.5 G/DL Comment: REFERENCE RANGE NOT ESTABLISHED FOR THIS BODY FLUID. SOURCE (FLUID) PLEURAL FLUID CULTURE, BODY FLUID W/ GRAM STAIN [[id number]] Collected: 07/27/221029 Order Status: Canceled Lab Status: No result Specimen: PLEURAL FLUID CULTURE, ANAEROBIC [[id number]] Collected: 07/27/221029 Order Status: Canceled Lab Status: No result Specimen: PLEURAL FLUID CULTURE, BODY FLUID W/ GRAM STAIN [[id number]] (Susceptibility) Collected: 07/27/221029 Order Status: Completed Lab [...] Sensitive TRIMETH-SULFAMETH. Resistant VANCOMYCIN Sensitive CULTURE, ANAEROBIC [[id number]] (Susceptibility) Collected: 07/27/22 1030 Order Status: Completed Lab Status: Final result Updated: 08/01/22 08 Specimen: SITE Spec. Description SITE: RT PLEURAL FLUID Special Requests: NO SPECIAL REQUEST Culture Result: -- FEW MICROAEROPHILIC STREPTOCOCCUS Susceptibility Microaerophilic streptococcus ARLEN (ETEST) CEFOTAXIME 0.023 Sensitive PENICILLIN G 0.008 Sensitive BLASTOMYCES AG MVISTA (TM), EIA [[id number]] Order Status: No result Lab Status: No result Specimen: BLOOD BLASTOMYCES AG MVISTA (TM), EIA [[id number]] Order Status: No result Lab Status: No result Specimen: URINE CORONAVIRUS (COVID 19) PCR - Asymptomatic patients, may be completed at physician discretion [[id number]] Collected: 07/25/222031 Order Status: Canceled Lab Status: No result Specimen: NASOPHARYNGEAL SWAB STREP PNEUMO AG URINE [[id number]] Collected: 07/25/222030 Order Status: Completed Lab Status: [...] Type URINE VOIDED MRSA PCR nares Screening [[id number]] Collected: 07/25/222030 Order Status: Canceled Lab Status: No result Specimen: NASAL CULTURE, BACTERIA, BLOOD [[id number]] Collected: 07/25/221416 Order Status: Completed Lab Status: Final result Updated: 07/30/222144 Specimen: BLOOD Spec. Description BLOOD Special Requests: NO SPECIAL REQUEST Culture Result: NO GROWTH 5 DAYS CULTURE, BACTERIA, BLOOD [[id number]] Collected: 07/25/22 141 Order Status: Completed Lab [...] with the following history as recorded in [facility]: Problem List Items Addressed This Visit [...] ID LANRE WINTER MD 2:03 PM 08/06/2022 ONAL FACILITIES MANAGER * Adali Henry, SPOOL CLEANER - 08/06/2022 11:37 AM CST [facility] PULMONOLOGY??PROGRESS??NOTE [...] - Can follow with Dr. Pineda in [facility] after discharge ([phone]). Dr. Pineda will be in [place] 08/08 and 08/22. Patient will call clinic [...] the radiograph exam from yesterday. Ordered By: EDIVN POLLACK Interpreted By: Antonio Hill MD, 08/05/2022 [...] Patti Pineda MD at 08/06/2022 6:25 PM NATIONAL FACILITIES MANAGER ONAL FACILITIES MANAGER ONAL FACILITIES MANAGER ONAL FACILITIES MANAGER Associated attestation - Miriam, Patti Leon MD - 08/06/2022 6:25 PM NATIONAL FACILITIES MANAGER Seen by SUB ACUTE CARE NURSE Has COPD, 50-pk year history smoking who [...] assistance. Maria Antonia Quiñones PharmD Phone number: [phone] 08/06/2022 10:45 AM ONAL FACILITIES MANAGER * Suzi Irby RN - 08/06/2022 10:24 AM CSTSummary: IDR 08/06/22 1003 Interdisciplinary Group Information Next Conference Date 08/07/22 Interdisciplinary Group Conference Team Members Present Physician;Case/Care management;Nursing (Dr. [facility]) Barriers to Discharge Barriers Not Medically ready Not Medically ready follow up planned d/c chest tube, waiting on ID final recs, home O2 eval, keep IMC ONAL FACILITIES MANAGER * Ross Blackburn MD - 08/06/2022 9:40 AM CST In bathroom cleaning up. No leak seen. Small output. Maybe a small effusion. Plan to remove chest tube. ONAL FACILITIES MANAGER * Anisa B Drainer, CASING WRINGER OPERATOR - 08/06/2022 8:44 AM CST OT Treatment Discharge Recommendation: home with assistance Activity Recommendation for concrete conveyor operator: Per nursing discretion, OT signing off. 08/06/22822 Therapy Visit OT Received On 08/06/22 Reason for admission Update: Pt had VATS with R decorication on 08/02 with R chest tube placement (CT to suction). Discussed with Ana MOYA who okayed real estate underwriter proceed with POC. Pt is a [...] was notusing at home. 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 Pt [...] Name: Ray Phillips Primary Language of learner: Surinamese Patient was educated on precautions exercises transfers ADLs balance bed mobility equipment therapy plan safety energy conservation adaptive skills. Education was completed one to one this date. Preference of learning new concepts one to one Barriers to education this date were none. Response to education this date verbalized understanding. ONAL FACILITIES MANAGER * Maria Antonia Quiñones PharmD - 08/06/2022 [...] Consult per Dr. Srinath Quiñones, PharmD Phone: [phone] 08/06/2022 8:22 AM ONAL FACILITIES MANAGER * Lanre Winter MD - 08/05/2022 2:41 [...] Procedure Component Value Units Date/Time CULTURE, ANAEROBIC [[id number]] Collected: 08/02/22837 Order Status: Completed Lab Status: Preliminary result Updated: 08/03/22 1524 Specimen: TISSUE from OTHER (type in comments) Spec. Description TISSUE: RT DECORTICATION TISU Special Requests: NO SPECIAL REQUEST Culture Result: -- NO ANAEROBES ISOLATED TO DATE CULTURE TB/AFB OTHER (TYPE IN COMMENTS) [[id number]] Collected: 08/02/22837 Order Status: Sent Lab Status: In process Updated: 08/02/22 1009 Specimen: TISSUE from OTHER (type in comments) CULTURE, FUNGUS [[id number]] Collected: 08/02/22837 Order Status: Sent Lab Status: In process Updated: 08/02/22 1010 Specimen: TISSUE from OTHER (type in comments) CULTURE, TISSUE W/GRAM STAIN [[id number]] Collected: 08/02/22837 Order Status: Completed Lab Status: Preliminary result Updated: 08/05/22 1202 Specimen: TISSUE from OTHER (type in comments) Spec. Description TISSUE: RT DECORTICATION TISU Special Requests: NO SPECIAL REQUEST Gram Stain Result -- MODERATE NEUTROPHILS SEEN Gram Stain Result NO ORGANISMS SEEN Culture Result: NO GROWTH 3 DAYS SMEAR,FLUOR STAIN,ACID FAST [[id number]] Collected: 08/02/22 0838 Order Status: No result Lab Status: In process Updated: 08/02/22 1012 CULTURE, FUNGUS [[id number]] Order Status: No result Lab Status: No result Specimen: BRONCHOALVEO LAV, RT LWR CULTURE TB/AFB OTHER (TYPE IN COMMENTS) [[id number]] Order Status: No result Lab Status: No result Specimen: BRONCHOALVEO LAV, RT LWR SMEAR,FLUOR STAIN,ACID FAST [[id number]] Order Status: No result Lab Status: No result Specimen: BRONCHOALVEO LAV, RT LWR CULTURE VIRAL RESPIRATORY RAPID [[id number]] Order Status: No result Lab Status: No result Specimen: BRONCHOALVEO LAV, RT LWR CULTURE RESPIRATORY W/ GRAM STAIN [[id number]] Order Status: No result Lab Status: No result Specimen: BRONCHIAL WASHING CULTURE, FUNGUS [[id number]] Order Status: No result Lab Status: No result Specimen: BRONCHIAL WASHING CULTURE TB/AFB OTHER (TYPE IN COMMENTS) [[id number]] Order Status: No result Lab Status: No result Specimen: BRONCHIAL WASHING SMEAR,FLUOR STAIN,ACID FAST [[id number]] Order Status: No result Lab Status: No result Specimen: BRONCHIAL WASHING CULTURE VIRAL RESPIRATORY RAPID [[id number]] Order Status: No result Lab Status: No result Specimen: BRONCHIAL WASHING CULTURE, QUANTITATIVE W/ GRAM STAIN [[id number]] Order Status: No result Lab Status: No result Specimen: BRONCHOALVEO LAV, RT LWR CULTURE, FUNGUS [[id number]] Collected: 07/30/22 1530 Order Status: No result Lab Status: In process Updated: 07/30/22 1701 CULTURE RESPIRATORY W/ GRAM STAIN [[id number]] Collected: 07/30/22 1530 Order Status: Completed Lab Status: Final result Updated: 08/03/22 1228 Specimen: SITE Spec. Description SITE: BRONCH WASH Special Requests: NO SPECIAL REQUEST Gram Stain Result -- MANY NEUTROPHILS SEEN Gram Stain Result NO ORGANISMS SEEN Culture Result: -- FEW TETE ALBICANS SMEAR,FLUOR STAIN,ACID FAST [[id number]] Collected: 07/30/221529 Order Status: Completed Lab Status: Final result Updated: 08/01/22 2318 ACID FAST SMEAR RESULT SEE NOTE 08/01/2022 11:18 PM Comment: Test Result Flag Unit RefValue Acid Fast Smear For Mycobacterium SOURCE: BRONCHIAL WASHING, BWASH/BAL MIX ACID FAST SMEAR FOR MYCOBACTERIUM FINAL Negative. Test Performed by: [place] [address] Retail Sales Lead: Brent Alcaraz M.D. Ph.D.; CLIA# [id number] CULTURE TB/AFB OTHER [[id number]] Collected: 07/30/221529 Order Status: No result Lab Status: In process Updated: 07/30/22 1704 CULTURE, QUANTITATIVE W/ GRAM STAIN [[id number]] Collected: 07/30/221529 Order Status: Completed Lab Status: Final result Updated: 08/02/22 145 Specimen: SITE Spec. Description SITE: BAL RLL Special Requests: NO SPECIAL REQUEST Gram Stain Result <10 NEUTROPHILS PER LPF Gram Stain Result <10 EPITHELIAL CELLS PER LPF Gram Stain Result -- RARE GRAM NEGATIVE RODS Culture Result: -- 500 CFU/ML YEAST , ID UPON REQUEST CULTURE, FUNGUS [[id number]] Collected: 07/30/221529 Order Status: Canceled Lab Status: No result SMEAR,FLUOR STAIN,ACID FAST [[id number]] Collected: 07/30/221529 Order Status: Canceled Lab Status: No result CULTURE TB/AFB OTHER [[id number]] Collected: 07/30/221529 Order Status: Canceled Lab Status: No result CULTURE CMV [[id number]] Collected: 07/30/221529 Order Status: No result Lab Status: In process Updated: 07/31/22 1431 CULTURE HERPES [[id number]] Collected: 07/30/221529 Order Status: Completed Lab Status: Final result Updated: 08/03/22 1542 HERPES SIMPLEX VIRUS CULTURE REPORT Comment: Herpes Simplex Virus Culture SOURCE : BAL/BWASH MIX IN RESULT Not Isolated Reference Range: Not Isolated Test Performed by [employer], [employer] [facility], [address] [place] [address] Adrián Balderas M.D., Ph.D., Director of Laboratories , [place] [id number] Specimen Type BAL/BWASH MIX IN VTM 1 TO 1 RATIO, FRZ NEG 70 CULTURE VIRAL RESPIRATORY RAPID [[id number]] Collected: 07/30/22 1530 Order Status: No result Lab Status: In process Updated: 07/31/22 1435 CULTURE RESPIRATORY W/ GRAM STAIN [[id number]] Collected: 07/28/221424 Order Status: Completed Lab Status: [...] -- MODERATE PRESUMPTIVE TETE ALBICANS CULTURE, FUNGUS [[id number]] Collected: 07/28/221424 Order Status: Sent Lab Status: In process Updated: 07/31/22 1336 Specimen: SPUTUM, EXPECTORATED CULTURE TB/AFB OTHER (TYPE IN COMMENTS) [[id number]] Collected: 07/28/221424 Order Status: Canceled Lab Status: No result Specimen: SPUTUM, EXPECTORATED SMEAR,FLUOR STAIN,ACID FAST [[id number]] Collected: 07/28/221424 Order Status: No result Lab Status: In process Updated: 07/28/22 1612 HISTOPLASMA ANTIGEN [[id number]] Collected: 07/28/221423 Order Status: Sent Lab Status: No result Specimen: BLOOD HISTOPLASMA ANTIGEN [[id number]] Collected: 07/28/221423 Order Status: Canceled Lab Status: No result Specimen: BLOOD GLUCOSE, BODY FLUID [[id number]] Order Status: Canceled Lab Status: No result Specimen: PLEURAL FLUID PH BODY FLUID [[id number]] Order Status: Canceled Lab Status: No result Specimen: PLEURAL FLUID CULTURE, BODY FLUID W/ GRAM STAIN [[id number]] Order Status: Canceled Lab Status: No result Specimen: PLEURAL FLUID CULTURE, ANAEROBIC [[id number]] Order Status: Canceled Lab Status: No result Specimen: PLEURAL FLUID CULTURE, FUNGUS [[id number]] Order Status: Canceled Lab Status: No result Specimen: PLEURAL FLUID LDH BODY FLUID [[id number]] Collected: 07/27/221029 Order Status: Completed Lab Status: Final result Updated: 07/27/22 152 Specimen: PLEURAL FLUID FLUID LDH >4,000 UNITS/L Comment: REFERENCE RANGE NOT ESTABLISHED FOR THIS BODY FLUID. SOURCE (FLUID) PLEURAL FLUID CELL COUNT W/ DIFF BODY FLUID [[id number]] Collected: 07/27/221029 Order Status: Completed Lab Status: Final result Updated: 07/27/22 1545 Specimen: PLEURAL FLUID SOURCE (FLUID) PLEURAL FLUID FL WBC 144.450 x10'3/uL Comment: REFERENCE RANGE NOT ESTABLISHED FL RBC 0.090 x10'6/uL Comment: REFERENCE RANGE NOT ESTABLISHED DIFFERENTIAL MANUAL DIFFERENTIAL PERFORMED ON CONCENTRATED CYTOSPIN CELLS COUNTED 100 No COUNTED SEGS (FLUID) 97 % LYMPHS (FLUID) 3 % PROTEIN TOTAL FLUID [[id number]] Collected: 07/27/221029 Order Status: Completed Lab Status: Final result Updated: 07/27/221521 Specimen: PLEURAL FLUID PROTEIN (FLUID) 3.5 G/DL Comment: REFERENCE RANGE NOT ESTABLISHED FOR THIS BODY FLUID. SOURCE (FLUID) PLEURAL FLUID CULTURE, BODY FLUID W/ GRAM STAIN [[id number]] Collected: 07/27/221029 Order Status: Canceled Lab Status: No result Specimen: PLEURAL FLUID CULTURE, ANAEROBIC [[id number]] Collected: 07/27/221029 Order Status: Canceled Lab Status: No result Specimen: PLEURAL FLUID CULTURE, BODY FLUID W/ GRAM STAIN [[id number]] (Susceptibility) Collected: 07/27/221029 Order Status: Completed Lab [...] Sensitive TRIMETH-SULFAMETH. Resistant VANCOMYCIN Sensitive CULTURE, ANAEROBIC [[id number]] (Susceptibility) Collected: 07/27/22 1030 Order Status: Completed Lab Status: Final result Updated: 08/01/22 08 Specimen: SITE Spec. Description SITE: RT PLEURAL FLUID Special Requests: NO SPECIAL REQUEST Culture Result: -- FEW MICROAEROPHILIC STREPTOCOCCUS Susceptibility Microaerophilic streptococcus ARLEN (ETEST) CEFOTAXIME 0.023 Sensitive PENICILLIN G 0.008 Sensitive BLASTOMYCES AG MVISTA (TM), EIA [[id number]] Order Status: No result Lab Status: No result Specimen: BLOOD BLASTOMYCES AG MVISTA (TM), EIA [[id number]] Order Status: No result Lab Status: No result Specimen: URINE CORONAVIRUS (COVID 19) PCR - Asymptomatic patients, may be completed at physician discretion [[id number]] Collected: 07/25/222031 Order Status: Sent Lab Status: No result Specimen: NASOPHARYNGEAL SWAB STREP PNEUMO AG URINE [[id number]] Collected: 07/25/222030 Order Status: Completed Lab Status: [...] Type URINE VOIDED MRSA PCR nares Screening [[id number]] Collected: 07/25/222030 Order Status: Canceled Lab Status: No result Specimen: NASAL CULTURE, BACTERIA, BLOOD [[id number]] Collected: 07/25/221416 Order Status: Completed Lab Status: Final result Updated: 07/30/222144 Specimen: BLOOD Spec. Description BLOOD Special Requests: NO SPECIAL REQUEST Culture Result: NO GROWTH 5 DAYS CULTURE, BACTERIA, BLOOD [[id number]] Collected: 07/25/221415 Order Status: Completed Lab Status: [...] with the following history as recorded in [facility]: Problem List Items Addressed This Visit [...] tomorrow LANRE WINTER MD 2:41 PM 08/05/2022 ONAL FACILITIES MANAGER * Akrla M Yash, DENITRATOR - 08/05/2022 12:19 PM CST PT Treatment Discharge Recommendation: home with assistance for IADL's Activity Recommendation for concrete conveyor operator: defer to nursing-PT signing off 08/05/22 0850 Therapy Visit Ordering Provider Tracy Yo MD Subjective Upon entering room 742, patient was in supine and agreeable to therapy. Reason for admission Update: Pt had VATS with R decorication on 08/02 with R chest tube placement (CT to suction). Discussed with Ana MOYA who okayed real estate underwriter proceed with POC. Pt is a [...] was notusing at home. 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 Pt [...] this date as patient demonstrates mod I [id number]. Wayne has met all acute PT goals [...] Name: Ray Phillips Primary Language of learner: Surinamese Patient was educated on transfers balance therapy plan gait safety. Education was completed one to one verbal hands-on demonstration this date. Preference of learning new concepts one to one verbal hands-on demonstration Barriers to education this date were none. Response to education this date verbalized understanding. ONAL FACILITIES MANAGER * Patel Kelsey MD - 08/05/2022 11:31 [...] discharge. Can follow with Dr. Pineda in [facility] after discharge ([phone]). - ID following for antibiotics management. ?? [...] Katie Paula MD at 08/05/2022 1:52 PM NATIONAL FACILITIES MANAGER ONAL FACILITIES MANAGER ONAL FACILITIES MANAGER Associated attestation - Katie Paula MD - 08/05/2022 1:52 PM NATIONAL FACILITIES MANAGER [facility] Attending [...] Brent Lemos MD at 08/05/2022 11:35 AM NATIONAL FACILITIES MANAGER ONAL FACILITIES MANAGER ONAL FACILITIES MANAGER * Ann Mcdonnell, PharmD - 08/05/2022 10:42 [...] Consult per Dr. Srinath MCDONNELL, PharmD Phone: [phone] 08/05/2022 10:42 AM ONAL FACILITIES MANAGER * Lanre Winter MD - 08/04/2022 3:33 [...] Procedure Component Value Units Date/Time CULTURE, ANAEROBIC [[id number]] Collected: 08/02/22837 Order Status: Completed Lab Status: Preliminary result Updated: 08/03/22 1524 Specimen: TISSUE from OTHER (type in comments) Spec. Description TISSUE: RT DECORTICATION TISU Special Requests: NO SPECIAL REQUEST Culture Result: -- NO ANAEROBES ISOLATED TO DATE CULTURE TB/AFB OTHER (TYPE IN COMMENTS) [[id number]] Collected: 08/02/22837 Order Status: Sent Lab Status: In process Updated: 08/02/22 1009 Specimen: TISSUE from OTHER (type in comments) CULTURE, FUNGUS [[id number]] Collected: 08/02/22837 Order Status: Sent Lab Status: In process Updated: 08/02/22 1010 Specimen: TISSUE from OTHER (type in comments) CULTURE, TISSUE W/GRAM STAIN [[id number]] Collected: 08/02/22837 Order Status: Completed Lab Status: Preliminary result Updated: 08/03/22 1525 Specimen: TISSUE from OTHER (type in comments) Spec. Description TISSUE: RT DECORTICATION TISU Special Requests: NO SPECIAL REQUEST Gram Stain Result -- MODERATE NEUTROPHILS SEEN Gram Stain Result NO ORGANISMS SEEN Culture Result: NO GROWTH 1 DAY SMEAR,FLUOR STAIN,ACID FAST [[id number]] Collected: 08/02/22837 Order Status: No result Lab Status: In process Updated: 08/02/22 1012 CULTURE, FUNGUS [[id number]] Order Status: No result Lab Status: No result Specimen: BRONCHOALVEO LAV, RT LWR CULTURE TB/AFB OTHER (TYPE IN COMMENTS) [[id number]] Order Status: No result Lab Status: No result Specimen: BRONCHOALVEO LAV, RT LWR SMEAR,FLUOR STAIN,ACID FAST [[id number]] Order Status: No result Lab Status: No result Specimen: BRONCHOALVEO LAV, RT LWR CULTURE VIRAL RESPIRATORY RAPID [[id number]] Order Status: No result Lab Status: No result Specimen: BRONCHOALVEO LAV, RT LWR CULTURE RESPIRATORY W/ GRAM STAIN [[id number]] Order Status: No result Lab Status: No result Specimen: BRONCHIAL WASHING CULTURE, FUNGUS [[id number]] Order Status: No result Lab Status: No result Specimen: BRONCHIAL WASHING CULTURE TB/AFB OTHER (TYPE IN COMMENTS) [[id number]] Order Status: No result Lab Status: No result Specimen: BRONCHIAL WASHING SMEAR,FLUOR STAIN,ACID FAST [[id number]] Order Status: No result Lab Status: No result Specimen: BRONCHIAL WASHING CULTURE VIRAL RESPIRATORY RAPID [[id number]] Order Status: No result Lab Status: No result Specimen: BRONCHIAL WASHING CULTURE, QUANTITATIVE W/ GRAM STAIN [[id number]] Order Status: No result Lab Status: No result Specimen: BRONCHOALVEO LAV, RT LWR CULTURE, FUNGUS [[id number]] Collected: 07/30/221529 Order Status: No result Lab Status: In process Updated: 07/30/22 1701 CULTURE RESPIRATORY W/ GRAM STAIN [[id number]] Collected: 07/30/221529 Order Status: Completed Lab Status: Final result Updated: 08/03/22 1228 Specimen: SITE Spec. Description SITE: BRONCH WASH Special Requests: NO SPECIAL REQUEST Gram Stain Result -- MANY NEUTROPHILS SEEN Gram Stain Result NO ORGANISMS SEEN Culture Result: -- FEW TETE ALBICANS SMEAR,FLUOR STAIN,ACID FAST [[id number]] Collected: 07/30/221529 Order Status: Completed Lab Status: Final result Updated: 08/01/22 2318 ACID FAST SMEAR RESULT SEE NOTE 08/01/2022 11:18 PM Comment: Test Result Flag Unit RefValue Acid Fast Smear For Mycobacterium SOURCE: BRONCHIAL WASHING, BWASH/BAL MIX ACID FAST SMEAR FOR MYCOBACTERIUM FINAL Negative. Test Performed by: [address] [address] Retail Sales Lead: Brent Alcaraz M.D. Ph.D.; CLIA# [id number] CULTURE TB/AFB OTHER [[id number]] Collected: 07/30/221529 Order Status: No result Lab Status: In process Updated: 07/30/22 1704 CULTURE, QUANTITATIVE W/ GRAM STAIN [[id number]] Collected: 07/30/221529 Order Status: Completed Lab Status: Final result Updated: 08/02/22 1457 Specimen: SITE Spec. Description SITE: BAL RLL Special Requests: NO SPECIAL REQUEST Gram Stain Result <10 NEUTROPHILS PER LPF Gram Stain Result <10 EPITHELIAL CELLS PER LPF Gram Stain Result -- RARE GRAM NEGATIVE RODS Culture Result: -- 500 CFU/ML YEAST , ID UPON REQUEST CULTURE, FUNGUS [[id number]] Collected: 07/30/221529 Order Status: Canceled Lab Status: No result SMEAR,FLUOR STAIN,ACID FAST [[id number]] Collected: 07/30/221529 Order Status: Canceled Lab Status: No result CULTURE TB/AFB OTHER [[id number]] Collected: 07/30/221529 Order Status: Canceled Lab Status: No result CULTURE CMV [[id number]] Collected: 07/30/221529 Order Status: No result Lab Status: In process Updated: 07/31/22 1431 CULTURE HERPES [[id number]] Collected: 07/30/221529 Order Status: Completed Lab Status: Final result Updated: 08/03/22 154 HERPES SIMPLEX VIRUS CULTURE REPORT Comment: Herpes Simplex Virus Culture SOURCE : BAL/BWASH MIX IN RESULT Not Isolated Reference Range: Not Isolated Test Performed by [facility], [facility], [address] [place] [address] Adrián Balderas M.D., Ph.D., Director of Laboratories , [facility] [id number] Specimen Type BAL/BWASH MIX IN VTM 1 TO 1 RATIO, FRZ NEG 70 CULTURE VIRAL RESPIRATORY RAPID [[id number]] Collected: 07/30/221529 Order Status: No result Lab Status: In process Updated: 07/31/22 1435 CULTURE RESPIRATORY W/ GRAM STAIN [[id number]] Collected: 07/28/22 1425 Order Status: Completed Lab [...] -- MODERATE PRESUMPTIVE TETE ALBICANS CULTURE, FUNGUS [[id number]] Collected: 07/28/221424 Order Status: Sent Lab Status: In process Updated: 07/31/22 133 Specimen: SPUTUM, EXPECTORATED CULTURE TB/AFB OTHER (TYPE IN COMMENTS) [[id number]] Collected: 07/28/221424 Order Status: Sent Lab Status: No result Specimen: SPUTUM, EXPECTORATED SMEAR,FLUOR STAIN,ACID FAST [[id number]] Collected: 07/28/221424 Order Status: No result Lab Status: In process Updated: 07/28/22 161 HISTOPLASMA ANTIGEN [[id number]] Collected: 07/28/221423 Order Status: Sent Lab Status: No result Specimen: BLOOD HISTOPLASMA ANTIGEN [[id number]] Collected: 07/28/221423 Order Status: Canceled Lab Status: No result Specimen: BLOOD GLUCOSE, BODY FLUID [[id number]] Order Status: Canceled Lab Status: No result Specimen: PLEURAL FLUID PH BODY FLUID [[id number]] Order Status: Canceled Lab Status: No result Specimen: PLEURAL FLUID CULTURE, BODY FLUID W/ GRAM STAIN [[id number]] Order Status: Canceled Lab Status: No result Specimen: PLEURAL FLUID CULTURE, ANAEROBIC [[id number]] Order Status: Canceled Lab Status: No result Specimen: PLEURAL FLUID CULTURE, FUNGUS [[id number]] Order Status: Canceled Lab Status: No result Specimen: PLEURAL FLUID LDH BODY FLUID [[id number]] Collected: 07/27/22 103 Order Status: Completed Lab Status: Final result Updated: 07/27/22 152 Specimen: PLEURAL FLUID FLUID LDH >4,000 UNITS/L Comment: REFERENCE RANGE NOT ESTABLISHED FOR THIS BODY FLUID. SOURCE (FLUID) PLEURAL FLUID CELL COUNT W/ DIFF BODY FLUID [[id number]] Collected: 07/27/22 103 Order Status: Completed Lab Status: Final result Updated: 07/27/22 1545 Specimen: PLEURAL FLUID SOURCE (FLUID) PLEURAL FLUID FL WBC 144.450 x10'3/uL Comment: REFERENCE RANGE NOT ESTABLISHED FL RBC 0.090 x10'6/uL Comment: REFERENCE RANGE NOT ESTABLISHED DIFFERENTIAL MANUAL DIFFERENTIAL PERFORMED ON CONCENTRATED CYTOSPIN CELLS COUNTED 100 No COUNTED SEGS (FLUID) 97 % LYMPHS (FLUID) 3 % PROTEIN TOTAL FLUID [[id number]] Collected: 07/27/221029 Order Status: Completed Lab Status: Final result Updated: 07/27/22 1522 Specimen: PLEURAL FLUID PROTEIN (FLUID) 3.5 G/DL Comment: REFERENCE RANGE NOT ESTABLISHED FOR THIS BODY FLUID. SOURCE (FLUID) PLEURAL FLUID CULTURE, BODY FLUID W/ GRAM STAIN [[id number]] Collected: 07/27/221029 Order Status: Canceled Lab Status: No result Specimen: PLEURAL FLUID CULTURE, ANAEROBIC [[id number]] Collected: 07/27/221029 Order Status: Canceled Lab Status: No result Specimen: PLEURAL FLUID CULTURE, BODY FLUID W/ GRAM STAIN [[id number]] (Susceptibility) Collected: 07/27/221029 Order Status: Completed Lab [...] Sensitive TRIMETH-SULFAMETH. Resistant VANCOMYCIN Sensitive CULTURE, ANAEROBIC [[id number]] (Susceptibility) Collected: 07/27/221029 Order Status: Completed Lab Status: Final result Updated: 08/01/22 08 Specimen: SITE Spec. Description SITE: RT PLEURAL FLUID Special Requests: NO SPECIAL REQUEST Culture Result: -- FEW MICROAEROPHILIC STREPTOCOCCUS Susceptibility Microaerophilic streptococcus ARLEN (ETEST) CEFOTAXIME 0.023 Sensitive PENICILLIN G 0.008 Sensitive BLASTOMYCES AG MVISTA (TM), EIA [[id number]] Order Status: No result Lab Status: No result Specimen: BLOOD BLASTOMYCES AG MVISTA (TM), EIA [[id number]] Order Status: No result Lab Status: No result Specimen: URINE CORONAVIRUS (COVID 19) PCR - Asymptomatic patients, may be completed at physician discretion [[id number]] Collected: 07/25/222031 Order Status: Sent Lab Status: No result Specimen: NASOPHARYNGEAL SWAB STREP PNEUMO AG URINE [[id number]] Collected: 07/25/222030 Order Status: Completed Lab Status: [...] Type URINE VOIDED MRSA PCR nares Screening [[id number]] Collected: 07/25/222030 Order Status: Canceled Lab Status: No result Specimen: NASAL CULTURE, BACTERIA, BLOOD [[id number]] Collected: 07/25/221416 Order Status: Completed Lab Status: Final result Updated: 07/30/222144 Specimen: BLOOD Spec. Description BLOOD Special Requests: NO SPECIAL REQUEST Culture Result: NO GROWTH 5 DAYS CULTURE, BACTERIA, BLOOD [[id number]] Collected: 07/25/221415 Order Status: Completed Lab Status: [...] improvement LANRE WINTER MD 3:33 PM 08/04/2022 ONAL FACILITIES MANAGER * Ann Mcdonnell, PharmD - 08/04/2022 3:28 [...] Consult per Dr. Srinath MCDONNELL, PharmD Phone: [phone] 08/04/2022 3:28 PM ONAL FACILITIES MANAGER * Patel Kelsey MD - 08/04/2022 11:37 [...] cultures with presumptive tete albicans ?? 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 08/03/22 1418 Therapy Visit OT Received On 08/03/22 Reason for admission Update: Pt had VATS with R decorication on 08/02 with R chest tube placement (CT to suction). Discussed with Ana MOYA who okayed real estate underwriter proceed with POC. Pt is a [...] was notusing at home. 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 Pt [...] Pt stated he walked that way prior, real estate underwriter discussed safety concerns. Other (Comment) Pt [...] Name: Ray Phillips Primary Language of learner: Surinamese Patient was educated on transfers ADLs balance therapy plan safety energy conservation. Education was completed one to one verbal this date. Preference of learning new concepts one to one verbal Barriers to education this date were fatigue. Response to education this date verbalized understanding verbalized recall asks questions demos with verbal cues needs reinforcement needs follow up needs assistance. ONAL FACILITIES MANAGER * Lanre Winter MD - 08/03/2022 3:18 [...] Procedure Component Value Units Date/Time CULTURE, ANAEROBIC [[id number]] Collected: 08/02/22837 Order Status: Sent Lab Status: In process Updated: 08/02/22 1008 Specimen: TISSUE from OTHER (type in comments) CULTURE TB/AFB OTHER (TYPE IN COMMENTS) [[id number]] Collected: 08/02/22837 Order Status: Sent Lab Status: In process Updated: 08/02/22 1009 Specimen: TISSUE from OTHER (type in comments) CULTURE, FUNGUS [[id number]] Collected: 08/02/22837 Order Status: Sent Lab Status: In process Updated: 08/02/22 1010 Specimen: TISSUE from OTHER (type in comments) CULTURE, TISSUE W/GRAM STAIN [[id number]] Collected: 08/02/22837 Order Status: Completed Lab Status: Preliminary result Updated: 08/02/22 160 Specimen: TISSUE from OTHER (type in comments) Spec. Description TISSUE: RT DECORTICATION TISU Special Requests: NO SPECIAL REQUEST Follow-up of empyema hydropneumothorax result -- MODERATE NEUTROPHILS SEEN Gram Stain Result NO ORGANISMS SEEN Culture Result: PENDING SMEAR,FLUOR STAIN,ACID FAST [[id number]] Collected: 08/02/22837 Order Status: No result Lab Status: In process Updated: 08/02/22 1012 CULTURE, FUNGUS [[id number]] Order Status: No result Lab Status: No result Specimen: BRONCHOALVEO LAV, RT LWR CULTURE TB/AFB OTHER (TYPE IN COMMENTS) [[id number]] Order Status: No result Lab Status: No result Specimen: BRONCHOALVEO LAV, RT LWR SMEAR,FLUOR STAIN,ACID FAST [[id number]] Order Status: No result Lab Status: No result Specimen: BRONCHOALVEO LAV, RT LWR CULTURE VIRAL RESPIRATORY RAPID [[id number]] Order Status: No result Lab Status: No result Specimen: BRONCHOALVEO LAV, RT LWR CULTURE RESPIRATORY W/ GRAM STAIN [[id number]] Order Status: No result Lab Status: No result Specimen: BRONCHIAL WASHING CULTURE, FUNGUS [[id number]] Order Status: No result Lab Status: No result Specimen: BRONCHIAL WASHING CULTURE TB/AFB OTHER (TYPE IN COMMENTS) [[id number]] Order Status: No result Lab Status: No result Specimen: BRONCHIAL WASHING SMEAR,FLUOR STAIN,ACID FAST [[id number]] Order Status: No result Lab Status: No result Specimen: BRONCHIAL WASHING CULTURE VIRAL RESPIRATORY RAPID [[id number]] Order Status: No result Lab Status: No result Specimen: BRONCHIAL WASHING CULTURE, QUANTITATIVE W/ GRAM STAIN [[id number]] Order Status: No result Lab Status: No result Specimen: BRONCHOALVEO LAV, RT LWR CULTURE, FUNGUS [[id number]] Collected: 07/30/22 1530 Order Status: No result Lab Status: In process Updated: 07/30/22 1701 CULTURE RESPIRATORY W/ GRAM STAIN [[id number]] Collected: 07/30/221529 Order Status: Completed Lab Status: Final result Updated: 08/03/22 1228 Specimen: SITE Spec. Description SITE: BRONCH WASH Special Requests: NO SPECIAL REQUEST Gram Stain Result -- MANY NEUTROPHILS SEEN Gram Stain Result NO ORGANISMS SEEN Culture Result: -- FEW TETE ALBICANS SMEAR,FLUOR STAIN,ACID FAST [[id number]] Collected: 07/30/221529 Order Status: Completed Lab Status: Final result Updated: 08/01/22 2318 ACID FAST SMEAR RESULT SEE NOTE 08/01/2022 11:18 PM Comment: Test Result Flag Unit RefValue Acid Fast Smear For Mycobacterium SOURCE: BRONCHIAL WASHING, BWASH/BAL MIX ACID FAST SMEAR FOR MYCOBACTERIUM FINAL Negative. Test Performed by: [place] [address] Retail Sales Lead: Brent Alcaraz M.D. Ph.D.; CLIA# [id number] CULTURE TB/AFB OTHER [[id number]] Collected: 07/30/221529 Order Status: No result Lab Status: In process Updated: 07/30/22 170 CULTURE, QUANTITATIVE W/ GRAM STAIN [[id number]] Collected: 07/30/221529 Order Status: Completed Lab Status: Final result Updated: 08/02/22 1457 Specimen: SITE Spec. Description SITE: BAL RLL Special Requests: NO SPECIAL REQUEST Gram Stain Result <10 NEUTROPHILS PER LPF Gram Stain Result <10 EPITHELIAL CELLS PER LPF Gram Stain Result -- RARE GRAM NEGATIVE RODS Culture Result: -- 500 CFU/ML YEAST , ID UPON REQUEST CULTURE, FUNGUS [[id number]] Collected: 07/30/221529 Order Status: Canceled Lab Status: No result SMEAR,FLUOR STAIN,ACID FAST [[id number]] Collected: 07/30/221529 Order Status: Canceled Lab Status: No result CULTURE TB/AFB OTHER [[id number]] Collected: 07/30/221529 Order Status: Canceled Lab Status: No result CULTURE CMV [[id number]] Collected: 07/30/22 153 Order Status: No result Lab Status: In process Updated: 07/31/22 1431 CULTURE HERPES [[id number]] Collected: 07/30/22 153 Order Status: No result Lab Status: In process Updated: 07/31/22 143 CULTURE VIRAL RESPIRATORY RAPID [[id number]] Collected: 07/30/22 153 Order Status: No result Lab Status: In process Updated: 07/31/22 143 CULTURE RESPIRATORY W/ GRAM STAIN [[id number]] Collected: 07/28/221424 Order Status: Completed Lab Status: [...] -- MODERATE PRESUMPTIVE TETE ALBICANS CULTURE, FUNGUS [[id number]] Collected: 07/28/221424 Order Status: Sent Lab Status: In process Updated: 07/31/221335 Specimen: SPUTUM, EXPECTORATED CULTURE TB/AFB OTHER (TYPE IN COMMENTS) [[id number]] Collected: 07/28/221424 Order Status: Sent Lab Status: No result Specimen: SPUTUM, EXPECTORATED SMEAR,FLUOR STAIN,ACID FAST [[id number]] Collected: 07/28/221424 Order Status: No result Lab Status: In process Updated: 07/28/22 161 HISTOPLASMA ANTIGEN [[id number]] Collected: 07/28/221423 Order Status: Sent Lab Status: No result Specimen: BLOOD HISTOPLASMA ANTIGEN [[id number]] Collected: 07/28/221423 Order Status: Canceled Lab Status: No result Specimen: BLOOD GLUCOSE, BODY FLUID [[id number]] Order Status: Canceled Lab Status: No result Specimen: PLEURAL FLUID PH BODY FLUID [[id number]] Order Status: Canceled Lab Status: No result Specimen: PLEURAL FLUID CULTURE, BODY FLUID W/ GRAM STAIN [[id number]] Order Status: Canceled Lab Status: No result Specimen: PLEURAL FLUID CULTURE, ANAEROBIC [[id number]] Order Status: Canceled Lab Status: No result Specimen: PLEURAL FLUID CULTURE, FUNGUS [[id number]] Order Status: Canceled Lab Status: No result Specimen: PLEURAL FLUID LDH BODY FLUID [[id number]] Collected: 07/27/221029 Order Status: Completed Lab Status: Final result Updated: 07/27/221521 Specimen: PLEURAL FLUID FLUID LDH >4,000 UNITS/L Comment: REFERENCE RANGE NOT ESTABLISHED FOR THIS BODY FLUID. SOURCE (FLUID) PLEURAL FLUID CELL COUNT W/ DIFF BODY FLUID [[id number]] Collected: 07/27/221029 Order Status: Completed Lab Status: Final result Updated: 07/27/22 154 Specimen: PLEURAL FLUID SOURCE (FLUID) PLEURAL FLUID FL WBC 144.450 x10'3/uL Comment: REFERENCE RANGE NOT ESTABLISHED FL RBC 0.090 x10'6/uL Comment: REFERENCE RANGE NOT ESTABLISHED DIFFERENTIAL MANUAL DIFFERENTIAL PERFORMED ON CONCENTRATED CYTOSPIN CELLS COUNTED 100 No COUNTED SEGS (FLUID) 97 % LYMPHS (FLUID) 3 % PROTEIN TOTAL FLUID [[id number]] Collected: 07/27/221029 Order Status: Completed Lab Status: Final result Updated: 07/27/221521 Specimen: PLEURAL FLUID PROTEIN (FLUID) 3.5 G/DL Comment: REFERENCE RANGE NOT ESTABLISHED FOR THIS BODY FLUID. SOURCE (FLUID) PLEURAL FLUID CULTURE, BODY FLUID W/ GRAM STAIN [[id number]] Collected: 07/27/221029 Order Status: Canceled Lab Status: No result Specimen: PLEURAL FLUID CULTURE, ANAEROBIC [[id number]] Collected: 07/27/221029 Order Status: Canceled Lab Status: No result Specimen: PLEURAL FLUID CULTURE, BODY FLUID W/ GRAM STAIN [[id number]] (Susceptibility) Collected: 07/27/221029 Order Status: Completed Lab [...] Sensitive TRIMETH-SULFAMETH. Resistant VANCOMYCIN Sensitive CULTURE, ANAEROBIC [[id number]] (Susceptibility) Collected: 07/27/22 1030 Order Status: Completed Lab Status: Final result Updated: 08/01/22 0826 Specimen: SITE Spec. Description SITE: RT PLEURAL FLUID Special Requests: NO SPECIAL REQUEST Culture Result: -- FEW MICROAEROPHILIC STREPTOCOCCUS Susceptibility Microaerophilic streptococcus ARLEN (ETEST) CEFOTAXIME 0.023 Sensitive PENICILLIN G 0.008 Sensitive BLASTOMYCES AG MVISTA (TM), EIA [[id number]] Order Status: No result Lab Status: No result Specimen: BLOOD BLASTOMYCES AG MVISTA (TM), EIA [[id number]] Order Status: No result Lab Status: No result Specimen: URINE CORONAVIRUS (COVID 19) PCR - Asymptomatic patients, may be completed at physician discretion [[id number]] Collected: 07/25/222031 Order Status: Sent Lab Status: No result Specimen: NASOPHARYNGEAL SWAB STREP PNEUMO AG URINE [[id number]] Collected: 07/25/222030 Order Status: Completed Lab Status: [...] Type URINE VOIDED MRSA PCR nares Screening [[id number]] Collected: 07/25/222030 Order Status: Canceled Lab Status: No result Specimen: NASAL CULTURE, BACTERIA, BLOOD [[id number]] Collected: 07/25/22 141 Order Status: Completed Lab Status: Final result Updated: 07/30/222144 Specimen: BLOOD Spec. Description BLOOD Special Requests: NO SPECIAL REQUEST Culture Result: NO GROWTH 5 DAYS CULTURE, BACTERIA, BLOOD [[id number]] Collected: 07/25/22 141 Order Status: Completed Lab [...] improvement LANRE WINTER MD 3:18 PM 08/03/2022 ONAL FACILITIES MANAGER * Raquel Wetzel MD - 08/03/2022 2:55 [...] Ross Blackburn MD at 08/04/2022 8:14 AM NATIONAL FACILITIES MANAGER ONAL FACILITIES MANAGER ONAL FACILITIES MANAGER * Ford Tay - 08/03/2022 2:52 PM [...] Pharmacy Consult per Dr. Srinath Tay Phone: [phone] 08/03/2022 2:54 PM Cosigned by Maria Antonia Quiñones, PharmD at 08/03/2022 3:40 PM NATIONAL FACILITIES MANAGER ONAL FACILITIES MANAGER ONAL FACILITIES MANAGER * Zoila Farias MD - 08/03/2022 12:40 PM CSTSummary: DESTINI ID PROGRESS NOTE DE[facility]I INFECTIOUS DISEASE PROGRESS NOTE Attending Provider:Dr. Robbins PCP: JOE TAM DO Reason for Consultation: Loculated pleural effusions, Pneumonia ASSESSMENT AND PLAN Ray Phillips is a 67-year-old male with medical history of chronic tobacco use who was transferred from [facility] near [place] for treatment resistant pneumonia and loculated pleural [...] with plan. Thank you for consulting [facility] Infectious Disease, we will continue to follow. Paulina Dale APRN [facility] Infectious Disease 08/03/2022 Teaching physician note: Infectious Diseases Attending Physician: Patient personally interviewed and examined. Chart reviewed. Vitals, pertinent labs and imaging reviewed. [facility] Infectious Disease resident/fellow note reviewed [...] NG Antimicrobial Regimen Unknown Abx regiment at [facility] Vancomycin IV 1.25g every 24h(07/25 - [...] Intravenous, See Admin Instructions, Tracy Yo MD ONAL FACILITIES MANAGER ONAL FACILITIES MANAGER ONAL FACILITIES MANAGER ONAL FACILITIES MANAGER * Adali Henry, [facility] - 08/03/2022 11:43 AM CST DESTINI [...] will continue to follow. ?? 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 Discussed with Ana MOYA who okayed real estate underwriter proceed with POC. Pt is a [...] was notusing at home. 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 Pt [...] RN entering to give pain meds as real estate underwriter exiting room. Education: Primary Learners Name: Ray Phillips Primary Language of learner: Surinamese Patient Spouse was educated on exercises transfers balance bed mobility therapy plan safety. Education was completed one to one this date. Preference of learning new concepts one to one Barriers to education this date were pain fatigue. Response to education this date needs follow up. ONAL FACILITIES MANAGER * Estephania Long RN - 08/03/2022 8:35 AM CST 08/03/22 0835 Interdisciplinary Group Conference Team Members Present Physician;Case/Care management (Dr. Witner: [facility]) Barriers to Discharge Barriers Not Medically ready Not Medically ready follow up [facility] [place]: s/p Vats: Chest tube to suction Patient's plan is to dc to home,lives with significant other: May need home oxygen eval prior to dc. CM will continue to follow for safe dc planning/dc needs. ONAL FACILITIES MANAGER * Lanre Winter MD - 08/02/2022 3:34 [...] Procedure Component Value Units Date/Time CULTURE, ANAEROBIC [[id number]] Collected: 08/02/22837 Order Status: Sent Lab Status: In process Updated: 08/02/22 1008 Specimen: TISSUE from OTHER (type in comments) CULTURE TB/AFB OTHER (TYPE IN COMMENTS) [[id number]] Collected: 08/02/22837 Order Status: Sent Lab Status: In process Updated: 08/02/22 1009 Specimen: TISSUE from OTHER (type in comments) CULTURE, FUNGUS [[id number]] Collected: 08/02/22837 Order Status: Sent Lab Status: In process Updated: 08/02/22 1010 Specimen: TISSUE from OTHER (type in comments) CULTURE, TISSUE W/GRAM STAIN [[id number]] Collected: 08/02/22837 Order Status: Sent Lab Status: In process Updated: 08/02/22 1010 Specimen: TISSUE from OTHER (type in comments) SMEAR,FLUOR STAIN,ACID FAST [[id number]] Collected: 12/01/22 0838 Order Status: No result Lab Status: In process Updated: 08/02/22 1012 CULTURE, FUNGUS [[id number]] Order Status: No result Lab Status: No result Specimen: BRONCHOALVEO LAV, RT LWR CULTURE TB/AFB OTHER (TYPE IN COMMENTS) [[id number]] Order Status: No result Lab Status: No result Specimen: BRONCHOALVEO LAV, RT LWR SMEAR,FLUOR STAIN,ACID FAST [[id number]] Order Status: No result Lab Status: No result Specimen: BRONCHOALVEO LAV, RT LWR CULTURE VIRAL RESPIRATORY RAPID [[id number]] Order Status: No result Lab Status: No result Specimen: BRONCHOALVEO LAV, RT LWR CULTURE RESPIRATORY W/ GRAM STAIN [[id number]] Order Status: No result Lab Status: No result Specimen: BRONCHIAL WASHING CULTURE, FUNGUS [[id number]] Order Status: No result Lab Status: No result Specimen: BRONCHIAL WASHING CULTURE TB/AFB OTHER (TYPE IN COMMENTS) [[id number]] Order Status: No result Lab Status: No result Specimen: BRONCHIAL WASHING SMEAR,FLUOR STAIN,ACID FAST [[id number]] Order Status: No result Lab Status: No result Specimen: BRONCHIAL WASHING CULTURE VIRAL RESPIRATORY RAPID [[id number]] Order Status: No result Lab Status: No result Specimen: BRONCHIAL WASHING CULTURE, QUANTITATIVE W/ GRAM STAIN [[id number]] Order Status: No result Lab Status: No result Specimen: BRONCHOALVEO LAV, RT LWR CULTURE, FUNGUS [[id number]] Collected: 07/30/22 153 Order Status: No result Lab Status: In process Updated: 07/30/22 1701 CULTURE RESPIRATORY W/ GRAM STAIN [[id number]] Collected: 07/30/22 153 Order Status: Completed Lab Status: Preliminary result Updated: 08/01/22 1519 Specimen: SITE Spec. Description SITE: BRONCH WASH Special Requests: NO SPECIAL REQUEST Gram Stain Result -- MANY NEUTROPHILS SEEN Gram Stain Result NO ORGANISMS SEEN Culture Result: -- FEW YEAST . FURTHER ID TO FOLLOW. SMEAR,FLUOR STAIN,ACID FAST [[id number]] Collected: 07/30/22 1530 Order Status: Completed Lab Status: Final result Updated: 08/01/22 2312 ACID FAST SMEAR RESULT SEE NOTE 08/01/2022 11:18 PM Comment: Test Result Flag Unit RefValue Acid Fast Smear For Mycobacterium SOURCE: BRONCHIAL WASHING, BWASH/BAL MIX ACID FAST SMEAR FOR MYCOBACTERIUM FINAL Negative. Test Performed by: [facility] - [address] [address] Retail Sales Lead: Brent Alcaraz M.D. Ph.D.; CLIA# [id number] CULTURE TB/AFB OTHER [[id number]] Collected: 07/30/221529 Order Status: No result Lab Status: In process Updated: 07/30/22 170 CULTURE, QUANTITATIVE W/ GRAM STAIN [[id number]] Collected: 07/30/221529 Order Status: Completed Lab Status: Final result Updated: 08/02/22 145 Specimen: SITE Spec. Description SITE: BAL RLL Special Requests: NO SPECIAL REQUEST Gram Stain Result <10 NEUTROPHILS PER LPF Gram Stain Result <10 EPITHELIAL CELLS PER LPF Gram Stain Result -- RARE GRAM NEGATIVE RODS Culture Result: -- 500 CFU/ML YEAST , ID UPON REQUEST CULTURE, FUNGUS [[id number]] Collected: 07/30/221529 Order Status: Canceled Lab Status: No result SMEAR,FLUOR STAIN,ACID FAST [[id number]] Collected: 07/30/221529 Order Status: Canceled Lab Status: No result CULTURE TB/AFB OTHER [[id number]] Collected: 07/30/221529 Order Status: Canceled Lab Status: No result CULTURE CMV [[id number]] Collected: 07/30/221529 Order Status: No result Lab Status: In process Updated: 07/31/22 1431 CULTURE HERPES [[id number]] Collected: 07/30/221529 Order Status: No result Lab Status: In process Updated: 07/31/22 143 CULTURE VIRAL RESPIRATORY RAPID [[id number]] Collected: 07/30/221529 Order Status: No result Lab Status: In process Updated: 07/31/22 143 CULTURE RESPIRATORY W/ GRAM STAIN [[id number]] Collected: 07/28/22 142 Order Status: Completed Lab [...] -- MODERATE PRESUMPTIVE TETE ALBICANS CULTURE, FUNGUS [[id number]] Collected: 07/28/221424 Order Status: Sent Lab Status: In process Updated: 07/31/22 133 Specimen: SPUTUM, EXPECTORATED CULTURE TB/AFB OTHER (TYPE IN COMMENTS) [[id number]] Collected: 07/28/221424 Order Status: Sent Lab Status: No result Specimen: SPUTUM, EXPECTORATED SMEAR,FLUOR STAIN,ACID FAST [[id number]] Collected: 07/28/221424 Order Status: No result Lab Status: In process Updated: 07/28/22 1612 HISTOPLASMA ANTIGEN [[id number]] Collected: 07/28/221423 Order Status: Sent Lab Status: No result Specimen: BLOOD HISTOPLASMA ANTIGEN [[id number]] Collected: 07/28/221423 Order Status: Canceled Lab Status: No result Specimen: BLOOD GLUCOSE, BODY FLUID [[id number]] Order Status: Canceled Lab Status: No result Specimen: PLEURAL FLUID PH BODY FLUID [[id number]] Order Status: Canceled Lab Status: No result Specimen: PLEURAL FLUID CULTURE, BODY FLUID W/ GRAM STAIN [[id number]] Order Status: Canceled Lab Status: No result Specimen: PLEURAL FLUID CULTURE, ANAEROBIC [[id number]] Order Status: Canceled Lab Status: No result Specimen: PLEURAL FLUID CULTURE, FUNGUS [[id number]] Order Status: Canceled Lab Status: No result Specimen: PLEURAL FLUID LDH BODY FLUID [[id number]] Collected: 07/27/22 103 Order Status: Completed Lab Status: Final result Updated: 07/27/221521 Specimen: PLEURAL FLUID FLUID LDH >4,000 UNITS/L Comment: REFERENCE RANGE NOT ESTABLISHED FOR THIS BODY FLUID. SOURCE (FLUID) PLEURAL FLUID CELL COUNT W/ DIFF BODY FLUID [[id number]] Collected: 07/27/221029 Order Status: Completed Lab Status: Final result Updated: 07/27/22 1545 Specimen: PLEURAL FLUID SOURCE (FLUID) PLEURAL FLUID FL WBC 144.450 x10'3/uL Comment: REFERENCE RANGE NOT ESTABLISHED FL RBC 0.090 x10'6/uL Comment: REFERENCE RANGE NOT ESTABLISHED DIFFERENTIAL MANUAL DIFFERENTIAL PERFORMED ON CONCENTRATED CYTOSPIN CELLS COUNTED 100 No COUNTED SEGS (FLUID) 97 % LYMPHS (FLUID) 3 % PROTEIN TOTAL FLUID [[id number]] Collected: 07/27/221029 Order Status: Completed Lab Status: Final result Updated: 07/27/22 152 Specimen: PLEURAL FLUID PROTEIN (FLUID) 3.5 G/DL Comment: REFERENCE RANGE NOT ESTABLISHED FOR THIS BODY FLUID. SOURCE (FLUID) PLEURAL FLUID CULTURE, BODY FLUID W/ GRAM STAIN [[id number]] Collected: 07/27/221029 Order Status: Canceled Lab Status: No result Specimen: PLEURAL FLUID CULTURE, ANAEROBIC [[id number]] Collected: 07/27/221029 Order Status: Canceled Lab Status: No result Specimen: PLEURAL FLUID CULTURE, BODY FLUID W/ GRAM STAIN [[id number]] (Susceptibility) Collected: 07/27/221029 Order Status: Completed Lab [...] Sensitive TRIMETH-SULFAMETH. Resistant VANCOMYCIN Sensitive CULTURE, ANAEROBIC [[id number]] (Susceptibility) Collected: 07/27/221029 Order Status: Completed Lab Status: Final result Updated: 08/01/22 0826 Specimen: SITE Spec. Description SITE: RT PLEURAL FLUID Special Requests: NO SPECIAL REQUEST Culture Result: -- FEW MICROAEROPHILIC STREPTOCOCCUS Susceptibility Microaerophilic streptococcus ARLEN (ETEST) CEFOTAXIME 0.023 Sensitive PENICILLIN G 0.008 Sensitive BLASTOMYCES AG MVISTA (TM), EIA [[id number]] Order Status: No result Lab Status: No result Specimen: BLOOD BLASTOMYCES AG MVISTA (TM), EIA [[id number]] Order Status: No result Lab Status: No result Specimen: URINE CORONAVIRUS (COVID 19) PCR - Asymptomatic patients, may be completed at physician discretion [[id number]] Collected: 07/25/222031 Order Status: Sent Lab Status: No result Specimen: NASOPHARYNGEAL SWAB STREP PNEUMO AG URINE [[id number]] Collected: 07/25/222030 Order Status: Completed Lab Status: [...] Type URINE VOIDED MRSA PCR nares Screening [[id number]] Collected: 07/25/222030 Order Status: Canceled Lab Status: No result Specimen: NASAL CULTURE, BACTERIA, BLOOD [[id number]] Collected: 07/25/221416 Order Status: Completed Lab Status: Final result Updated: 07/30/222144 Specimen: BLOOD Spec. Description BLOOD Special Requests: NO SPECIAL REQUEST Culture Result: NO GROWTH 5 DAYS CULTURE, BACTERIA, BLOOD [[id number]] Collected: 07/25/221415 Order Status: Completed Lab Status: [...] with the following history as recorded in [facility]: Problem List Items Addressed This Visit [...] improvement LANRE WINTER MD 3:34 PM 08/02/2022 ONAL FACILITIES MANAGER * Adali Henry, SPOOL CLEANER - 08/02/2022 12:50 PM CST [facility] PULMONOLOGY??PROGRESS??NOTE ?? Reason for Admission:?Respiratory failure (CMS/[facility]) ?? Reason for Consult:??Respiratory failure, necrotizing pneumonia,??possible [...] will continue to follow. ?? Adali Henry, SPOOL CLEANER 08/02/2022 SUBJECTIVE Patient wondering when his surgery [...] Katie Paula MD at 08/02/2022 7:52 PM NATIONAL FACILITIES MANAGER ONAL FACILITIES MANAGER ONAL FACILITIES MANAGER Associated attestation - Katie Paula MD - 08/02/2022 7:52 PM NATIONAL FACILITIES MANAGER [facility] Pulmonary and Critical Care Medicine Attending [...] Pharmacy Consult per Dr. Srinath Tay Phone: [phone] 08/02/2022 11:56 AM Cosigned by Maria Antonia Quiñones PharmD at 08/02/2022 3:49 PM NATIONAL FACILITIES MANAGER ONAL FACILITIES MANAGER ONAL FACILITIES MANAGER ONAL FACILITIES MANAGER ONAL FACILITIES MANAGER * Angela Dawkins RN - 08/02/2022 8:55 AM CSTSummary: D/C plans IDBR done with Dr Maggy HARRIS MD to discuss POC/D/C plans. See notes below. 08/02/22 1550 Interdisciplinary Group Conference Team Members Present Case/Care management;Physician Barriers to Discharge Barriers Not Medically ready Not Medically ready follow up Pt to have VATS today. Continue IMC status. ONAL FACILITIES MANAGER * Lanre Winter MD - 08/01/2022 2:57 [...] Procedure Component Value Units Date/Time CULTURE, FUNGUS [[id number]] Order Status: No result Lab Status: No result Specimen: BRONCHOALVEO LAV, RT LWR CULTURE TB/AFB OTHER (TYPE IN COMMENTS) [[id number]] Order Status: No result Lab Status: No result Specimen: BRONCHOALVEO LAV, RT LWR SMEAR,FLUOR STAIN,ACID FAST [[id number]] Order Status: No result Lab Status: No result Specimen: BRONCHOALVEO LAV, RT LWR CULTURE VIRAL RESPIRATORY RAPID [[id number]] Order Status: No result Lab Status: No result Specimen: BRONCHOALVEO LAV, RT LWR CULTURE RESPIRATORY W/ GRAM STAIN [[id number]] Order Status: No result Lab Status: No result Specimen: BRONCHIAL WASHING CULTURE, FUNGUS [[id number]] Order Status: No result Lab Status: No result Specimen: BRONCHIAL WASHING CULTURE TB/AFB OTHER (TYPE IN COMMENTS) [[id number]] Order Status: No result Lab Status: No result Specimen: BRONCHIAL WASHING SMEAR,FLUOR STAIN,ACID FAST [[id number]] Order Status: No result Lab Status: No result Specimen: BRONCHIAL WASHING CULTURE VIRAL RESPIRATORY RAPID [[id number]] Order Status: No result Lab Status: No result Specimen: BRONCHIAL WASHING CULTURE, QUANTITATIVE W/ GRAM STAIN [[id number]] Order Status: No result Lab Status: No result Specimen: BRONCHOALVEO LAV, RT LWR CULTURE, FUNGUS [[id number]] Collected: 07/30/221529 Order Status: No result Lab Status: In process Updated: 07/30/22 170 CULTURE RESPIRATORY W/ GRAM STAIN [[id number]] Collected: 07/30/221529 Order Status: Completed Lab Status: Preliminary result Updated: 07/31/22 155 Specimen: SITE Spec. Description SITE: BRONCH WASH Special Requests: NO SPECIAL REQUEST Gram Stain Result -- MANY NEUTROPHILS SEEN Gram Stain Result NO ORGANISMS SEEN Culture Result: -- FEW YEAST , ID UPON REQUEST SMEAR,FLUOR STAIN,ACID FAST [[id number]] Collected: 07/30/221529 Order Status: No result Lab Status: In process Updated: 07/30/221702 CULTURE TB/AFB OTHER [[id number]] Collected: 07/30/221529 Order Status: No result Lab Status: In process Updated: 07/30/221703 CULTURE, QUANTITATIVE W/ GRAM STAIN [[id number]] Collected: 07/30/221529 Order Status: Completed Lab Status: Preliminary result Updated: 07/31/221557 Specimen: SITE Spec. Description SITE: BAL RLL Special Requests: NO SPECIAL REQUEST Gram Stain Result <10 NEUTROPHILS PER LPF Gram Stain Result <10 EPITHELIAL CELLS PER LPF Gram Stain Result -- RARE GRAM NEGATIVE RODS Culture Result: NO GROWTH 1 DAY CULTURE, FUNGUS [[id number]] Collected: 07/30/221529 Order Status: Canceled Lab Status: No result SMEAR,FLUOR STAIN,ACID FAST [[id number]] Collected: 07/30/221529 Order Status: Canceled Lab Status: No result CULTURE TB/AFB OTHER [[id number]] Collected: 07/30/221529 Order Status: Canceled Lab Status: No result CULTURE CMV [[id number]] Collected: 07/30/221529 Order Status: No result Lab Status: In process Updated: 07/31/22 1431 CULTURE HERPES [[id number]] Collected: 07/30/221529 Order Status: No result Lab Status: In process Updated: 07/31/22 1432 CULTURE VIRAL RESPIRATORY RAPID [[id number]] Collected: 07/30/221529 Order Status: No result Lab Status: In process Updated: 07/31/22 1435 CULTURE RESPIRATORY W/ GRAM STAIN [[id number]] Collected: 07/28/221424 Order Status: Completed Lab Status: [...] -- MODERATE PRESUMPTIVE TETE ALBICANS CULTURE, FUNGUS [[id number]] Collected: 07/28/221424 Order Status: Sent Lab Status: In process Updated: 07/31/221335 Specimen: SPUTUM, EXPECTORATED CULTURE TB/AFB OTHER (TYPE IN COMMENTS) [[id number]] Collected: 07/28/221424 Order Status: Sent Lab Status: No result Specimen: SPUTUM, EXPECTORATED SMEAR,FLUOR STAIN,ACID FAST [[id number]] Collected: 07/28/221424 Order Status: No result Lab Status: In process Updated: 07/28/22 1612 HISTOPLASMA ANTIGEN [[id number]] Collected: 07/28/221423 Order Status: Sent Lab Status: No result Specimen: BLOOD HISTOPLASMA ANTIGEN [[id number]] Collected: 07/28/221423 Order Status: Canceled Lab Status: No result Specimen: BLOOD GLUCOSE, BODY FLUID [[id number]] Order Status: Canceled Lab Status: No result Specimen: PLEURAL FLUID PH BODY FLUID [[id number]] Order Status: Canceled Lab Status: No result Specimen: PLEURAL FLUID CULTURE, BODY FLUID W/ GRAM STAIN [[id number]] Order Status: Canceled Lab Status: No result Specimen: PLEURAL FLUID CULTURE, ANAEROBIC [[id number]] Order Status: Canceled Lab Status: No result Specimen: PLEURAL FLUID CULTURE, FUNGUS [[id number]] Order Status: Canceled Lab Status: No result Specimen: PLEURAL FLUID LDH BODY FLUID [[id number]] Collected: 07/27/22 1030 Order Status: Completed Lab Status: Final result Updated: 07/27/22 152 Specimen: PLEURAL FLUID FLUID LDH >4,000 UNITS/L Comment: REFERENCE RANGE NOT ESTABLISHED FOR THIS BODY FLUID. SOURCE (FLUID) PLEURAL FLUID CELL COUNT W/ DIFF BODY FLUID [[id number]] Collected: 07/27/221029 Order Status: Completed Lab Status: Final result Updated: 07/27/22 1545 Specimen: PLEURAL FLUID SOURCE (FLUID) PLEURAL FLUID FL WBC 144.450 x10'3/uL Comment: REFERENCE RANGE NOT ESTABLISHED FL RBC 0.090 x10'6/uL Comment: REFERENCE RANGE NOT ESTABLISHED DIFFERENTIAL MANUAL DIFFERENTIAL PERFORMED ON CONCENTRATED CYTOSPIN CELLS COUNTED 100 No COUNTED SEGS (FLUID) 97 % LYMPHS (FLUID) 3 % PROTEIN TOTAL FLUID [[id number]] Collected: 07/27/221029 Order Status: Completed Lab Status: Final result Updated: 07/27/22 152 Specimen: PLEURAL FLUID PROTEIN (FLUID) 3.5 G/DL Comment: REFERENCE RANGE NOT ESTABLISHED FOR THIS BODY FLUID. SOURCE (FLUID) PLEURAL FLUID CULTURE, BODY FLUID W/ GRAM STAIN [[id number]] Collected: 07/27/221029 Order Status: Canceled Lab Status: No result Specimen: PLEURAL FLUID CULTURE, ANAEROBIC [[id number]] Collected: 07/27/221029 Order Status: Canceled Lab Status: No result Specimen: PLEURAL FLUID CULTURE, BODY FLUID W/ GRAM STAIN [[id number]] (Susceptibility) Collected: 07/27/221029 Order Status: Completed Lab [...] Sensitive TRIMETH-SULFAMETH. Resistant VANCOMYCIN Sensitive CULTURE, ANAEROBIC [[id number]] (Susceptibility) Collected: 07/27/221029 Order Status: Completed Lab Status: Final result Updated: 08/01/22 0826 Specimen: SITE Spec. Description SITE: RT PLEURAL FLUID Special Requests: NO SPECIAL REQUEST Culture Result: -- FEW MICROAEROPHILIC STREPTOCOCCUS Susceptibility Microaerophilic streptococcus ARLEN (ETEST) CEFOTAXIME 0.023 Sensitive PENICILLIN G 0.008 Sensitive BLASTOMYCES AG MVISTA (TM), EIA [[id number]] Order Status: No result Lab Status: No result Specimen: BLOOD BLASTOMYCES AG MVISTA (TM), EIA [[id number]] Order Status: No result Lab Status: No result Specimen: URINE CORONAVIRUS (COVID 19) PCR - Asymptomatic patients, may be completed at physician discretion [[id number]] Collected: 07/25/222031 Order Status: Sent Lab Status: No result Specimen: NASOPHARYNGEAL SWAB STREP PNEUMO AG URINE [[id number]] Collected: 07/25/222030 Order Status: Completed Lab Status: [...] Type URINE VOIDED MRSA PCR nares Screening [[id number]] Collected: 07/25/222030 Order Status: Canceled Lab Status: No result Specimen: NASAL CULTURE, BACTERIA, BLOOD [[id number]] Collected: 07/25/221416 Order Status: Completed Lab Status: Final result Updated: 07/30/222144 Specimen: BLOOD Spec. Description BLOOD Special Requests: NO SPECIAL REQUEST Culture Result: NO GROWTH 5 DAYS CULTURE, BACTERIA, BLOOD [[id number]] Collected: 07/25/221415 Order Status: Completed Lab Status: [...] counselling LANRE WINTER MD 2:57 PM 08/01/2022 ONAL FACILITIES MANAGER * Dayami Robbins MD - 08/01/2022 2:48 PM CSTSummary: [facility] ID progress note [facility] INFECTIOUS DISEASE PROGRESS NOTE Attending Provider:Dr. Robbins PCP: JOE TAM DO Reason for Consultation: Loculated pleural effusions, Pneumonia ASSESSMENT AND PLAN Ray Phillips is a 67-year-old male with medical history of chronic tobacco use who was transferred from [facility] near [place] for treatment resistant pneumonia and loculated pleural [...] with plan. Thank you for consulting [facility] Infectious Disease, we will continue to follow. Paulina Dale APRN [facility] Infectious Disease 08/01/2022 Teaching physician note: Infectious Diseases Attending Physician: Patient personally interviewed and examined. Labs and vitals reviewed. [facility] Infectious Disease mid-level provider's note [...] NG Antimicrobial Regimen Unknown Abx regiment at [facility] Vancomycin IV 1.25g every 24h(07/25 - [...] 8 mL at 07/27/22 1016 lidocaine-EPINEPHrine 2 %-1:929893 injection 20 mL, 20 mL, Intradermal, Once, [...] Intravenous, See Admin Instructions, Tracy Yo MD ONAL FACILITIES MANAGER ONAL FACILITIES MANAGER ONAL FACILITIES MANAGER ONAL FACILITIES MANAGER * Adali Henry, SPOOL CLEANER - 08/01/2022 11:14 AM CST [facility] PULMONOLOGY??PROGRESS??NOTE [...] Katie Paula MD at 08/01/2022 7:49 PM NATIONAL FACILITIES MANAGER ONAL FACILITIES MANAGER ONAL FACILITIES MANAGER Associated attestation - Katie Paula MD - 08/01/2022 7:49 PM NATIONAL FACILITIES MANAGER [facility] Pulmonary and Critical Care Medicine Attending [...] Pharmacy Consult per Dr. Srinath Tay Phone: [phone] 08/01/2022 1:35 PM Cosigned by Maria Antonia Quiñones PharmD at 08/01/2022 3:38 PM NATIONAL FACILITIES MANAGER ONAL FACILITIES MANAGER ONAL FACILITIES MANAGER Associated attestation - Maria Antonia Quiñones PharmD - 08/01/2022 3:38 PM NATIONAL FACILITIES MANAGER Next LVL will be Saturday 12 AM [...] VATS 08/02. Continue IMC status. CM following. ONAL FACILITIES MANAGER * Raquel Wetzel MD - 08/01/2022 6:56 [...] 8 mLat 07/27/22 1016 ??? 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 Pt [...] Assistance Independent UE Dressing Deficit Setup;Thread RUE;Thread LUE;acid remover head;Pull around back;Pull down in back UE [...] Name: Ray Phillips Primary Language of learner: Surinamese Patient was educated on exercises transfers ADLs balance bed mobility therapy plan safety energy conservation. Education was completed one to one verbal this date. Preference of learning new concepts one to one verbal Barriers to education this date were fatigue. Response to education this date verbalized understanding verbalized recall asks questions demos with verbal cues demos adequately needs follow up needs assistance. ONAL FACILITIES MANAGER * Dayami Robbins MD - 07/31/2022 1:55 PM CSTSummary: [facility]I ID PROGRESS NOTE [facility] INFECTIOUS DISEASE PROGRESS NOTE Attending Provider:Dr. Robbins PCP: JOE TAM DO Reason for Consultation: Loculated pleural effusions, Pneumonia ASSESSMENT AND PLAN Ray Phillips is a 67-year-old male with medical history of chronic tobacco use who was transferred from [facility] near [place] for treatment resistant pneumonia and loculated pleural [...] Possible COPD Anemia History of Asbestos exposure [facility] Infectious Disease Team Recommendations -Continue Vancomycin (per pharmacy dosing) for pleural fluid growing Staphylococcus Epidermidis -Continue Cefepime for BAL growing GNR pending speciation. -Continue Metronidazole PO 500 mg q 8h for concern for empyema/abscess on previous CT imaging. -Appreciate Pulmonology assistance. -Plan as above discussed with patient, all voiced questions/concerns addressed, voices agreement and understanding with plan. Thank you for consulting [facility] Infectious Disease, we will continue to follow. Paulina Dale APRN [facility] Infectious Disease 07/31/2022 Teaching physician note: Infectious Diseases Attending Physician: Patient personally interviewed and examined. Labs and vitals reviewed. [facility] Infectious Disease mid-level provider's note [...] NG Antimicrobial Regimen Unknown Abx regiment at [facility] Vancomycin IV 1.25g every 24h(07/25 - [...] 8 mL at 07/27/22 1016 lidocaine-EPINEPHrine 2 %-1:382075 injection 20 mL, 20 mL, Intradermal, Once, [...] Intravenous, See Admin Instructions, Tracy Yo MD ONAL FACILITIES MANAGER ONAL FACILITIES MANAGER ONAL FACILITIES MANAGER * Karla Berrios, DENITRATOR - 07/31/2022 1:40 PM CST PT Treatment Discharge Recommendation: home with assistance Activity Recommendation for concrete conveyor operator: up with 1, 2ww, gait belt 07/31/22 [...] was notusing at home. 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 Pt [...] Name: Ray Phillips Primary Language of learner: Surinamese Patient was educated on precautions transfers balance bed mobility therapy plan gait safety. Education was completed one to one verbal hands-on demonstration this date. Preference of learning new concepts one to one verbal hands-on demonstration Barriers to education this date were none. Response to education this date verbalized understanding. ONAL FACILITIES MANAGER * Patel Kelsey MD - 07/31/2022 12:43 PM CST [facility] PULMONOLOGY??PROGRESS??NOTE ?? Attending Provider:??Florencio Amaya MD PCP:??GRACIELA LEIGH MD? Reason for Admission:?Respiratory failure (CMS/[facility]) ?? Reason for Consult:??Respiratory failure, necrotizing pneumonia,??possible loculated??effusion??- empyema or abscess vs bronchopleural fistula ? ASSESSMENT/PLAN Ray Phillpis??is a 67-year-old??male, with history of??chronic back pain,??50-pk [...] with hospitalist who [facility]. - Bronchoscopy completed on [...] Katie Paula MD at 07/31/2022 4:44 PM NATIONAL FACILITIES MANAGER ONAL FACILITIES MANAGER ONAL FACILITIES MANAGER Associated attestation - Katie Paula MD - 07/31/2022 4:44 PM NATIONAL FACILITIES MANAGER [facility] Pulmonary and Critical Care Medicine Attending [...] Procedure Component Value Units Date/Time CULTURE, FUNGUS [[id number]] Order Status: No result Lab Status: No result Specimen: BRONCHOALVEO LAV, RT LWR CULTURE TB/AFB OTHER (TYPE IN COMMENTS) [[id number]] Order Status: No result Lab Status: No result Specimen: BRONCHOALVEO LAV, RT LWR SMEAR,FLUOR STAIN,ACID FAST [[id number]] Order Status: No result Lab Status: No result Specimen: BRONCHOALVEO LAV, RT LWR CULTURE VIRAL RESPIRATORY RAPID [[id number]] Order Status: No result Lab Status: No result Specimen: BRONCHOALVEO LAV, RT LWR CULTURE RESPIRATORY W/ GRAM STAIN [[id number]] Order Status: No result Lab Status: No result Specimen: BRONCHIAL WASHING CULTURE, FUNGUS [[id number]] Order Status: No result Lab Status: No result Specimen: BRONCHIAL WASHING CULTURE TB/AFB OTHER (TYPE IN COMMENTS) [[id number]] Order Status: No result Lab Status: No result Specimen: BRONCHIAL WASHING SMEAR,FLUOR STAIN,ACID FAST [[id number]] Order Status: No result Lab Status: No result Specimen: BRONCHIAL WASHING CULTURE VIRAL RESPIRATORY RAPID [[id number]] Order Status: No result Lab Status: No result Specimen: BRONCHIAL WASHING CULTURE, QUANTITATIVE W/ GRAM STAIN [[id number]] Order Status: No result Lab Status: No result Specimen: BRONCHOALVEO LAV, RT LWR CULTURE, FUNGUS [[id number]] Collected: 07/30/221529 Order Status: No result Lab Status: In process Updated: 07/30/22 170 CULTURE RESPIRATORY W/ GRAM STAIN [[id number]] Collected: 07/30/221529 Order Status: Completed Lab Status: Preliminary result Updated: 07/30/222016 Specimen: SITE Spec. Description SITE: BRONCH WASH Special Requests: NO SPECIAL REQUEST Gram Stain Result -- MANY NEUTROPHILS SEEN Gram Stain Result NO ORGANISMS SEEN Culture Result: PENDING SMEAR,FLUOR STAIN,ACID FAST [[id number]] Collected: 07/30/221529 Order Status: No result Lab Status: In process Updated: 07/30/22 170 CULTURE TB/AFB OTHER [[id number]] Collected: 07/30/221529 Order Status: No result Lab Status: In process Updated: 07/30/22 170 CULTURE, QUANTITATIVE W/ GRAM STAIN [[id number]] Collected: 07/30/221529 Order Status: Completed Lab Status: Preliminary result Updated: 07/31/22440 Specimen: SITE Spec. Description SITE: BAL RLL Special Requests: NO SPECIAL REQUEST Gram Stain Result <10 NEUTROPHILS PER LPF Gram Stain Result <10 EPITHELIAL CELLS PER LPF Gram Stain Result -- RARE GRAM NEGATIVE RODS Culture Result: PENDING CULTURE, FUNGUS [[id number]] Collected: 07/30/221529 Order Status: Canceled Lab Status: No result SMEAR,FLUOR STAIN,ACID FAST [[id number]] Collected: 07/30/221529 Order Status: Canceled Lab Status: No result CULTURE TB/AFB OTHER [[id number]] Collected: 07/30/221529 Order Status: Canceled Lab Status: No result CULTURE RESPIRATORY W/ GRAM STAIN [[id number]] Collected: 07/28/221424 Order Status: Completed Lab Status: [...] -- MODERATE PRESUMPTIVE TETE ALBICANS CULTURE, FUNGUS [[id number]] Collected: 07/28/221424 Order Status: Sent Lab Status: No result Specimen: SPUTUM, EXPECTORATED CULTURE TB/AFB OTHER (TYPE IN COMMENTS) [[id number]] Collected: 07/28/221424 Order Status: Sent Lab Status: No result Specimen: SPUTUM, EXPECTORATED SMEAR,FLUOR STAIN,ACID FAST [[id number]] Collected: 07/28/221424 Order Status: No result Lab Status: In process Updated: 07/28/22 161 HISTOPLASMA ANTIGEN [[id number]] Collected: 07/28/221423 Order Status: Sent Lab Status: No result Specimen: BLOOD HISTOPLASMA ANTIGEN [[id number]] Collected: 07/28/221423 Order Status: Canceled Lab Status: No result Specimen: BLOOD GLUCOSE, BODY FLUID [[id number]] Order Status: Sent Lab Status: No result Specimen: PLEURAL FLUID PH BODY FLUID [[id number]] Order Status: Sent Lab Status: No result Specimen: PLEURAL FLUID CULTURE, BODY FLUID W/ GRAM STAIN [[id number]] Order Status: Canceled Lab Status: No result Specimen: PLEURAL FLUID CULTURE, ANAEROBIC [[id number]] Order Status: Canceled Lab Status: No result Specimen: PLEURAL FLUID CULTURE, FUNGUS [[id number]] Order Status: Canceled Lab Status: No result Specimen: PLEURAL FLUID LDH BODY FLUID [[id number]] Collected: 07/27/221029 Order Status: Completed Lab Status: Final result Updated: 07/27/221521 Specimen: PLEURAL FLUID FLUID LDH >4,000 UNITS/L Comment: REFERENCE RANGE NOT ESTABLISHED FOR THIS BODY FLUID. SOURCE (FLUID) PLEURAL FLUID CELL COUNT W/ DIFF BODY FLUID [[id number]] Collected: 07/27/221029 Order Status: Completed Lab Status: Final result Updated: 07/27/221544 Specimen: PLEURAL FLUID SOURCE (FLUID) PLEURAL FLUID FL WBC 144.450 x10'3/uL Comment: REFERENCE RANGE NOT ESTABLISHED FL RBC 0.090 x10'6/uL Comment: REFERENCE RANGE NOT ESTABLISHED DIFFERENTIAL MANUAL DIFFERENTIAL PERFORMED ON CONCENTRATED CYTOSPIN CELLS COUNTED 100 No COUNTED SEGS (FLUID) 97 % LYMPHS (FLUID) 3 % PROTEIN TOTAL FLUID [[id number]] Collected: 07/27/221029 Order Status: Completed Lab Status: Final result Updated: 07/27/221521 Specimen: PLEURAL FLUID PROTEIN (FLUID) 3.5 G/DL Comment: REFERENCE RANGE NOT ESTABLISHED FOR THIS BODY FLUID. SOURCE (FLUID) PLEURAL FLUID CULTURE, BODY FLUID W/ GRAM STAIN [[id number]] Collected: 07/27/221029 Order Status: Canceled Lab Status: No result Specimen: PLEURAL FLUID CULTURE, ANAEROBIC [[id number]] Collected: 07/27/221029 Order Status: Canceled Lab Status: No result Specimen: PLEURAL FLUID CULTURE, BODY FLUID W/ GRAM STAIN [[id number]] (Susceptibility) Collected: 07/27/221029 Order Status: Completed Lab [...] Sensitive TRIMETH-SULFAMETH. Resistant VANCOMYCIN Sensitive CULTURE, ANAEROBIC [[id number]] Collected: 07/27/22 1030 Order Status: Completed Lab Status: Preliminary result Updated: 07/30/22 174 Specimen: SITE Spec. Description SITE: RT PLEURAL FLUID Special Requests: NO SPECIAL REQUEST Culture Result: -- FEW MICROAEROPHILIC STREPTOCOCCUS BLASTOMYCES AG MVISTA (TM), EIA [[id number]] Order Status: No result Lab Status: No result Specimen: BLOOD BLASTOMYCES AG MVISTA (TM), EIA [[id number]] Order Status: No result Lab Status: No result Specimen: URINE CORONAVIRUS (COVID 19) PCR - Asymptomatic patients, may be completed at physician discretion [[id number]] Collected: 07/25/222031 Order Status: Sent Lab Status: No result Specimen: NASOPHARYNGEAL SWAB STREP PNEUMO AG URINE [[id number]] Collected: 07/25/222030 Order Status: Completed Lab Status: [...] Type URINE VOIDED MRSA PCR nares Screening [[id number]] Collected: 07/25/222030 Order Status: Canceled Lab Status: No result Specimen: NASAL CULTURE, BACTERIA, BLOOD [[id number]] Collected: 07/25/22 1417 Order Status: Completed Lab Status: Final result Updated: 07/30/222144 Specimen: BLOOD Spec. Description BLOOD Special Requests: NO SPECIAL REQUEST Culture Result: NO GROWTH 5 DAYS CULTURE, BACTERIA, BLOOD [[id number]] Collected: 07/25/22 1416 Order Status: Completed Lab [...] counselling LANRE WINTER MD 11:32 AM 07/31/2022 ONAL FACILITIES MANAGER * Estephania Long RN - 07/31/2022 9:09 AM CST 07/31/22908 Interdisciplinary Group Conference Team Members Present Physician;Case/Care management (Dr. Winter : [facility]) Barriers to Discharge Barriers Not Medically ready Not Medically ready [place] [facility] [place]: Chest tube: s/p bronch Pulm following ONAL FACILITIES MANAGER * Ford Tay - 07/31/2022 8:47 AM [...] Pharmacy Consult per Dr. Srinath Tay Phone: [phone] 07/31/2022 12:56 PM Cosigned by Maria Antonia Quiñones, PharmD at 07/31/2022 2:22 PM NATIONAL FACILITIES MANAGER ONAL FACILITIES MANAGER ONAL FACILITIES MANAGER ONAL FACILITIES MANAGER ONAL FACILITIES MANAGER * Raquel Wetzel MD - 07/31/2022 6:52 [...] 8 mLat 07/27/22 1016 ??? lidocaine-EPINEPHrine 2 %-1:722588 injection 20 mL, 20 mL, Intradermal, Once, [...] Ross Blackburn MD at 08/02/2022 6:57 AM NATIONAL FACILITIES MANAGER ONAL FACILITIES MANAGER ONAL FACILITIES MANAGER * Dayami Robbins MD - 07/30/2022 2:10 PM CSTSummary: [facility] ID CHART NOTE [facility] INFECTIOUS DISEASE CHART NOTE Reason [...] questions or concerns. Paulina Dale APRN [facility] Infectious Disease 07/30/2022 Teaching physician note: Infectious Diseases Attending Physician: Labs and vitals reviewed. [facility] Infectious Disease mid-level provider's note reviewed and findings verified. Case discussed with the Infectious Disease team ONAL FACILITIES MANAGER ONAL FACILITIES MANAGER ONAL FACILITIES MANAGER * Ford Tay - 07/30/2022 1:48 PM [...] Pharmacy Consult per Dr. Srinath Tay Phone: [phone] 07/30/2022 1:48 PM Cosigned by Maria Antonia Quiñones, PharmD at 07/31/2022 8:10 AM NATIONAL FACILITIES MANAGER ONAL FACILITIES MANAGER ONAL FACILITIES MANAGER ONAL FACILITIES MANAGER * Patel Kelsey MD - 07/30/2022 1:20 PM CST [facility] PULMONOLOGY??PROGRESS??NOTE ?? Attending Provider:??Florencio Amaya MD PCP:??GRACIELA LEIGH MD? Reason for Admission:?Respiratory failure (CMS/[facility]) ?? Reason for Consult:??Respiratory failure, necrotizing pneumonia,??possible [...] TPA/dornase per IR for loculations - Bronchoscopy extrusion die repair manager for this afternoon, est 3:00pm, will follow [...] Danielle Avelar DO at 07/30/2022 9:55 PM NATIONAL FACILITIES MANAGER ONAL FACILITIES MANAGER ONAL FACILITIES MANAGER Associated attestation - Danielle Avelar DO - 07/30/2022 9:55 PM NATIONAL FACILITIES MANAGER [facility] Pulmonary/Critical Care Medicine Attending Note: I rounded with the radiology technician and residents. 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 Pt [...] Name: Ray Phillips Primary Language of learner: Surinamese Patient was educated on precautions transfers ADLs balance bed mobility therapy plan safety. Education was completed one to one this date. Preference of learning new concepts one to one Barriers to education this date were none. Response to education this date needs follow up. ONAL FACILITIES MANAGER * Florencio Amaya MD - 07/30/2022 11:52 [...] nebulizer solution 3 mL 3 mL Nebulization [id number] Jennifer Yo MD 3 mL at 07/30/22 1120 ??? lidocaine (XYLOCAINE) 1 % injection SOLN Code/Trauma/Sedation Med Raul Osuna MD 8 mL at 07/27/22 1016 ??? lidocaine-EPINEPHrine 2 %-1:040632 injection 20 mL 20 mL Intradermal Once [...] 250 mL IVPB 1,000 mg Intravenous Q12H Floerncio Amaya MD Stopped at 07/30/22 0400 ??? [...] [facility] ?? Pneumonia Acute hypoxic resp failure [...] high likelihood for decompensation. FLORENCIO AMAYA MD ONAL FACILITIES MANAGER * Angela Dawkins RN - 07/30/2022 10:05 [...] home with assist when able. CM following. ONAL FACILITIES MANAGER * Patel Kelsey MD - 07/29/2022 12:53 [...] Patti Pineda MD at 07/29/2022 1:05 PM NATIONAL FACILITIES MANAGER ONAL FACILITIES MANAGER ONAL FACILITIES MANAGER Associated attestation - Patti Pineda MD - 07/29/2022 1:05 PM NATIONAL FACILITIES MANAGER Kenisha Brizuela MD, I rounded with nurses, [...] Q24H Tracy Yo MD Stopped at 07/28/22 1715 ??? ceFEPIme (MAXIPIME) 2 g in sodium [...] nebulizer solution 3 mL 3 mL Nebulization [id number] Jennifer Yo MD 3 mL at 07/29/22 0832 ??? lidocaine (XYLOCAINE) 1 % injection SOLN Code/Trauma/Sedation Med Raul Osuna MD 8 mL at 07/27/22 1016 ??? lidocaine-EPINEPHrine 2 %-1:905410 injection 20 mL 20 mL Intradermal Once [...] high likelihood for decompensation. FLORENCIO AMAYA MD ONAL FACILITIES MANAGER ONAL FACILITIES MANAGER * Alfred Hill, PharmD, [facility] - 07/29/2022 11:04 AM CST [...] Pharmacy Consult per Dr. Srinath Hill, PharmD, [facility] Phone: [phone] 07/29/2022 11:04 AM ONAL FACILITIES MANAGER * Patel Kelsey MD - 07/28/2022 11:00 AM CST [facility] PULMONOLOGY PROGRESS NOTE ?? Attending Provider:??Florencio Amaya MD PCP:??GRACIELA LEIGH MD? Reason for Admission:?Respiratory failure ([facility]) ?? Reason for Consult:??Respiratory failure, necrotizing pneumonia,??possible [...] Patti Pineda MD at 07/28/2022 1:59 PM NATIONAL FACILITIES MANAGER ONAL FACILITIES MANAGER ONAL FACILITIES MANAGER Associated attestation - Patti Pineda MD - 07/28/2022 1:59 PM NATIONAL FACILITIES MANAGER Kenisha Brizuela MD, I rounded with RT, [...] nebulizer solution 3 mL 3 mL Nebulization [id number] Jennifer Yo MD 3 mL at 07/28/22 0811 ??? lidocaine (XYLOCAINE) 1 % injection SOLN Code/Trauma/Sedation Med Raul Osuna MD 8 mL at 07/27/22 1016 ??? lidocaine-EPINEPHrine 2 %-1:454990 injection 20 mL 20 mL Intradermal Once [...] Tracy Yo MD 30 mg at 07/27/22 8607 ??? morphine injection 1 mg 1 mg [...] high likelihood for decompensation. FLORENCIO AMAYA MD ONAL FACILITIES MANAGER * Alfred Hill, PharmD, [facility] - 07/28/2022 10:12 AM CST [...] Pharmacy Consult per Dr. Srinath Hill, PharmD, [facility] Phone: [phone] 07/28/2022 10:12 AM ONAL FACILITIES MANAGER * Florencio Amaya MD - 07/27/2022 12:01 [...] nebulizer solution 3 mL 3 mL Nebulization [id number] Jennifer Yo MD 3 mL at 07/27/22 1142 ??? lidocaine (XYLOCAINE) 1 % injection SOLN Code/Trauma/Sedation Med Raul Osuna MD 8 mL at 07/27/22 1016 ??? lidocaine-EPINEPHrine 2 %-1:816499 injection 20 mL 20 mL Intradermal Once [...] [facility] ?? Pneumonia Acute hypoxic resp failure [...] high likelihood for decompensation. FLORENCIO AMAYA MD ONAL FACILITIES MANAGER ONAL FACILITIES MANAGER * Patel Kelsey MD - 07/27/2022 11:41 AM CST [facility] PULMONOLOGY PROGRESS NOTE ?? Attending Provider: Florencio Amaya MD PCP: GRACIELA LEIGH MD ?? Reason for Admission: Respiratory failure (CMS/[facility]) ?? Reason for Consult: Respiratory failure, necrotizing [...] Instructions ??? sodium chloride 250 mL (07/27/22 0355) PRN: acetaminophen, albuterol sulfate HFA, cyclobenzaprine, fentaNYL, [...] MD, 07/26/2022 12:56 AM Cosigned by Patti iPneda MD at 07/27/2022 3:23 PM NATIONAL FACILITIES MANAGER ONAL FACILITIES MANAGER ONAL FACILITIES MANAGER Associated attestation - Patti Pineda MD - 07/27/2022 3:23 PM NATIONAL FACILITIES MANAGER Kenisha Brizuela MD, I rounded with RT, [...] tube placement Interventional Radiologist: Dr. Raul Osuna Mechanical Engineering Officer: RODNEY NOLASCO MD Anesthesia: IV conscious moderate [...] Raul Osuna MD at 07/27/2022 1:54 PM NATIONAL FACILITIES MANAGER ONAL FACILITIES MANAGER ONAL FACILITIES MANAGER ONAL FACILITIES MANAGER Associated attestation - Raul Osuna MD - 07/27/2022 1:54 PM NATIONAL FACILITIES MANAGER I was present during all critical and santos portions of the procedure(s) and immediately available [facility] services the entire duration. See [...] desires to proceed. RODNEY NOLASCO MD 07/27/2022 ONAL FACILITIES MANAGER * Angela Dawkins RN - 07/27/2022 9:40 [...] pt. CM following for safe D/C plans. ONAL FACILITIES MANAGER * Michaelle Nielsen MD - 07/27/2022 8:59 [...] culture as soon as possible. Will follow. ONAL FACILITIES MANAGER * Katelin Cuenca, OT - 07/27/2022 8:42 AM CSTSummary: OT EVAL OT Initial Evaluation Discharge Recommendation: home with assistance Activity Recommendation for concrete conveyor operator: UP with 1 2ww 07/27/22 0600 Therapy [...] not using at home. 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 Pt [...] session Pt reports independence as functional status DENITRATOR. Pt presents with pain, SOB, weakness, decreased [...] functional transfers in room and bathroom with Loup in order to increase independence with functional transfers. Pt will increase standing activity balance using for 3-5 minutes with independence order to increase independence with ADLs, functional transfers, and leisure activities. Pt will perform all LB dressing using AE PRN including clothing retrieval with Modified Loup in order to increase independence with ADLs. Pt will brush teeth, wash face, brush hair, and wash hands standing at sink with Loup in order to increase independence with ADLs. Pt will perform all toileting tasks including clothing management with Loup in order to increase independence with functional transfers and ADLs. Pt will bathe whole body and wash hair seated on shower chair with Modified Loup in order to increase independence with ADLs. Pt will perform supine to sit and sit to supine bed mobility with Loup in order to increaseindependence with ADLs, transitional [...] use of techniques during functional activities with Loup in order to increase overall activity tolerance [...] Name: Ray Phillips Primary Language of learner: Surinamese Patient Spouse educated on precautions exercises transfers ADLs balance bed mobility equipment therapy plan gait safety. Education was completed one to one verbal hands-on this date. Preference of learning new concepts one to one verbal hands-on Barriers to education this date were pain fatigue. Response to education this date verbalized understanding needs follow up needs assistance. ONAL FACILITIES MANAGER * Maria Atnonia Quiñones, PharmD - 07/27/2022 8:37 AM CST [...] Consult per Dr. Srinath Quiñones, PharmD Phone: [phone] 07/27/2022 8:37 AM ONAL FACILITIES MANAGER ONAL FACILITIES MANAGER * Angela Dawkins RN - 07/27/2022 8:35 AM CSTSummary: D/C plans Met with pt and ex /emergency contact, Maite Eldridge at bedside to assess/discuss CM needs/safe D/C plans. PCP Dr Jany CUEVAS. Meds [facility] Leonardo [place]. States he lives with emergency contact, Maite Eldridge in 1 story home with four steps in/out of home. States he had Pfizer COVID vaccines x2, booster x1. [facility] does not have any DME or [...] Dressing Assistance No Behavior Oriented;Cooperative Communication Talks;Understands Surinamese Socioeconomic Needs Caregiver Needed No At Risk [...] Patient expects to be discharged to: Home ONAL FACILITIES MANAGER * Charly Morillo, PT - 07/27/2022 8:27 AM CST PT Initial Evaluation Discharge Recommendation: home with assistance Activity Recommendation for concrete conveyor operator: Up with 1 GB 07/27/22 1200 Therapy [...] not using at home. 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 Pt [...] perform supine to/from sitting at EOB with Loup to improve mobility. Pt. will be able to perform sit to/from standing with modified independence using wheeled walker toimprove independence. Pt. will be able to ambulate 300 feet with Modified Loup using wheeled walker to help improve strength and functional independence. Pt. will be able to maintain dynamic sitting balance on soft surface with Loup to improve functional mobility. Pt. will be able to maintain static standing balance 5-10 minutes with Modified Loup using wheeled walker to improve independence. Pt. will be able to maintain dynamic standing balance during side-stepping L/R and marching with Modified Loup using wheeled walker to improve functional mobility. Education: Primary Learners Name: Ray Phillips Primary Language of learner: Surinamese Patient was educated on precautions exercises transfers ADLs balance bed mobility equipment therapy plan gait safety. Education was completed verbal hands-on demonstration this date. Preference of learning new concepts verbal hands-on demonstration Barriers to education this date were pain. Response to education this date needs follow up. ONAL FACILITIES MANAGER * Ramez Steve, JoannD - 07/26/2022 3:08 [...] Consult per Dr. Srinath STEVE, PharmD Phone: [phone] 07/26/2022 3:08 PM ONAL FACILITIES MANAGER * Florencio Amaya MD - 07/26/2022 10:12 [...] nebulizer solution 3 mL 3 mL Nebulization [id number] Jennifer Yo MD 3 mL at 07/26/22 0745 ??? lidocaine-EPINEPHrine 2 %-1:210979 injection 20 mL 20 mL Intradermal Once [...] mL IVPB 1,250 mg Intravenous Q12H Tracy oY MD 166.7 mL/hr at 07/26/22 0958 1,250 [...] [facility] ?? Pneumonia Acute hypoxic resp failure [...] high likelihood for decompensation. FLORENCIO AMAYA MD ONAL FACILITIES MANAGER * Nan Gomez RN - 07/26/2022 2:31 [...] potential discharge needs. Outcome: Met This Shift ONAL FACILITIES MANAGER * Ann Hammond NP - 07/26/2022 2:00 AM CST Pt seen at bedside, cta reviewed, Saturations 94% on 14l HFNC, Viji hgb 7.5 Does not appear dyspneic at rest, Repeat labs/abg ordered, D/w intnsivist Will need IR consult CT surgery consult in am- low threshold to transfer to ICU for hemodynamic instability or worsening resp status ONAL FACILITIES MANAGER * Allyn Irby PharmD - 07/25/2022 5:55 [...] Consult per Dr. Srinath IRBY, PharmD Phone: [phone] 07/25/2022 5:55 PM ONAL FACILITIES MANAGER documented in this encounter H&P Notes * [...] during recuperation were discussed with the patient/family/personal labor representative. Reasonable alternatives to the patient's proposed procedure/surgery including benefits, risks, and side effects related to the alternatives and the risks related to not receiving the proposed care were also discussed with the patient/family/personal labor representative. Questions were answered and the patient /family/personal labor representative verbalized understanding and desires to proceed. Cosigned by Ross Blackburn MD at 08/03/2022 11:37 AM NATIONAL FACILITIES MANAGER ONAL FACILITIES MANAGER ONAL FACILITIES MANAGER Source Note - Raquel Wetzel MD - 07/26/2022 11:38 AM NATIONAL FACILITIES MANAGER [facility] Thoracic Surgery Consult Reason for consult: [...] was not improvingso he was transferred to [facility] were CT of the chest was obtained [...] Ross Blackburn MD at 07/27/2022 6:52 AM NATIONAL FACILITIES MANAGER ONAL FACILITIES MANAGER ONAL FACILITIES MANAGER * Tracy Yo MD - 07/25/2022 1:55 PM CST Attending Provider: Tracy Yo,* PCP: GRACIELA LEIGH MD Ray Phillips is an 67-year-old male. Reason for Admission: Respiratory failure (CMS/[facility]) HPI: 67-year-old male with past medical history significant for chronic back pain due to back trauma 20 years ago, anxiety/depression, tobacco abuse who presents to [facility] with complaint of shortness of breath. He was diagnosed with pneumonia and was being treated with antibiotics but his symptoms reportedly did not improve. His chest CT showed diffuse pulmonary disease consistent with pneumonia and a loculated right pleural effusion. Upon arrival to [facility], patient reports intermittent shortness of breath. [...] [facility]. Differential diagnosis include complicated community-acquired pneumonia [...] Mechanical DVT prophylaxis Tracy Yo MD 07/25/2022 ONAL FACILITIES MANAGER documented in this encounter Procedure Notes * [...] sent to cytology and microbiology Kenisha Pineda ONAL FACILITIES MANAGER documented in this encounter Consult Notes * [...] was not improvingso he was transferred to [facility] were CT of the chest was obtained [...] Ross Blackburn MD at 07/27/2022 6:52 AM NATIONAL FACILITIES MANAGER ONAL FACILITIES MANAGER ONAL FACILITIES MANAGER * Michaelle Nielsen MD - 07/26/2022 11:23 AM CSTSummary: [facility] ID Consult Note [facility] INFECTIOUS DISEASE CONSULT NOTE Consulting Provider: Attending Provider: Florencio Amaya MD PCP: GRACIELA LEIGH MD Reason for Consultation: Loculated pleural effusions, Pneumonia History of Present Illness: Ray Phillips is a 67-year-old male with medical history of chronic tobacco use who was transferred from [facility] near [place] for treatment resistant pneumonia and loculated pleural effusions. Prior to hospitalization, patient had 1 week of daily hemoptysis, shortness of breath, and right sided lower chest pain. Reports the hemoptysis was about the size of a silver dollar. He had hemoptysis about one year ago, but it resolved spontaneously without medical intervention. He went to [facility] where he was diagnosed with pneumonia. He was started on antibiotics. Further imaging was concerning for loculated pleural effusions and possible malignancy according the patient. He was transferred to [facility] for further care. He was [...] Pending Antimicrobial Regimen Unknown Abx regiment at [facility] Vancomycin IV 1.25g every 24h(07/25 - present) Cefepime IV 2g every 12h(07/25 - present) Azithromycin IV 500mg every 24 hours (07/25 - present) ASSESSMENT AND PLAN Ray Phillips is a 67-year-old male with medical history of chronic tobacco use who was transferred from [facility] near [place] for treatment resistant pneumonia and loculated pleural [...] studies independently reviewed, agree with the above. ONAL FACILITIES MANAGER ONAL FACILITIES MANAGER ONAL FACILITIES MANAGER * Patel Kelsey MD - 07/26/2022 11:12 AM CST [facility] PULMONOLOGY CONSULT NOTE Attending Provider: Florencio Amaya MD PCP: GRACIELA LEIGH MD Reason for Admission: Respiratory failure ([facility]) Reason for Consult: Respiratory failure, necrotizing pneumonia, [...] this time frame as well. Presented to [facility] last Saturday and started on antibiotics, CT imaging done and showed what was noted above. Transferred to [facility] for further treatment. He is currently on antibiotics and steroids. He has history of smoking 1ppd for past 50 years. Never had lung cancer screening in past. Follows in [place], [place]. He quit smoking 1.5 weeks ago. He has brother with lung cancer. His mother and two sisters also had unknown cancer type. 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 He states he wore protective gear at that time. Travel to [place] in past 6 months, no other [...] Patti Pineda MD at 07/26/2022 12:41 PM NATIONAL FACILITIES MANAGER ONAL FACILITIES MANAGER ONAL FACILITIES MANAGER Associated attestation - Patti Pineda MD - 07/26/2022 12:41 PM NATIONAL FACILITIES MANAGER IKenisha MD, I was asked to see [...] arm scar from brown recluse spider bite. ONAL FACILITIES MANAGER * Charlene Crow RN - 07/25/2022 6:44 [...] Will speak with nurse about further options. ONAL FACILITIES MANAGER documented in this encounter OR Notes * Brief Op Note - JOSEPH Whitehead - 08/02/2022 9:28 AM CST HS Brief Op HSHSTHORACOSCOPY (VATS) WITH RIGHT DECORICATION Procedure Note Ray Phillips 08/02/2022 0730 Procedure(s) (LRB): THORACOSCOPY (VATS) WITH RIGHT DECORICATION (Right) Surgeon(s): Ross Blackburn MD Mechanical Engineering Officer: Research Professional: JOSEPH Whitehead Anesthesia: General Pre-Op Diagnosis: PLEURAL [...] Ross Blackburn MD at 08/03/2022 11:37 AM NATIONAL FACILITIES MANAGER ONAL FACILITIES MANAGER ONAL FACILITIES MANAGER * Op Note - Ross Blackburn MD - 08/02/2022 12:00 AM CST PREOPERATIVE DIAGNOSES: Trapped lung, empyema, loculated pleural effusion, pneumonia. POSTOPERATIVE DIAGNOSES: Trapped lung, empyema, loculated pleural effusion, pneumonia. PROCEDURES: Bronchoscopy, right thoracoscopy, decortication of the lung, multilevel intercostal nerve block. SURGEON: Ross Blackburn MD SALES REPRESENTATIVE AIRCRAFT: JOSEPH Flower TYPE OF ANESTHESIA: General. INDICATIONS: [...] to create a multilevel intercostal nerve block. [id number] chest tube was placed and the lung was reexpanded. The trocar sites injected with 0.25% Marcaine and closed including subcuticular skin stitches. Sterile dressings applied. Tolerated well without complication. Noted at completion of procedure, all counts were correct. #[id number] /REG/YAYA/CELESTINA ONAL FACILITIES MANAGER * Brief Op Note - Raul Osuna MD - 07/27/2022 12:11 PM CST PROCEDURE: CT-guided right thoracostomy tube placement Indication: Necrotizing pneumonia with loculated hydropneumothorax Physicians: Raul Osuna M.D. (attending); Rodney Nolasco M.D. (resident) Following informed consent, including discussion of procedural risks, the patient was place in the left lateral decubitus position on the CT table and Marcell protocol was observed to verify correct patient, [...] CT. The tract was dilated to 12 [place]. Duringdilation, there was temporary retraction of the [...] will be monitored to determine further management. ONAL FACILITIES MANAGER documented in this encounter Plan of Treatment Pending Results Name Type Priority Associated Diagnoses Date /Time USV VAST TEAM MIDLINE INSERT >5YR US VASC STAT 07/25/2022 5:18 PM NATIONAL FACILITIES MANAGER Scheduled Orders Name Type Priority Associated Diagnoses [...] and discharge planning Lifestyle No Angela Dawkins, ORCHARD SPRAYER documented as of this encounter Procedures Procedure Name Priority Date/Time Associated Diagnosis Comments XR CHEST PA OR AP 1V Today 08/08/2022 5:37 AM NATIONAL FACILITIES MANAGER COMPREHENSIVE METABOLIC PANEL Routine 08/08/2022 2:22 AM NATIONAL FACILITIES MANAGER CBC W/DIFF AUTOMATED Routine 08/08/2022 2:22 AM NATIONAL FACILITIES MANAGER HEMOGLOBIN AND HEMATOCRIT STAT 08/07/2022 10:12 AM NATIONAL FACILITIES MANAGER XR CHEST PA OR AP 1V Today 08/07/2022 5:57 AM NATIONAL FACILITIES MANAGER HOME O2 EVAL Routine 08/06/2022 12:48 PM NATIONAL FACILITIES MANAGER XR CHEST PA OR AP 1V Today 08/06/2022 5:28 AM NATIONAL FACILITIES MANAGER COMPREHENSIVE METABOLIC PANEL Routine 08/06/2022 4:27 AM NATIONAL FACILITIES MANAGER CBC W/DIFF AUTOMATED Routine 08/06/2022 4:27 AM NATIONAL FACILITIES MANAGER VANCOMYCIN TIMED 08/06/2022 4:27 AM NATIONAL FACILITIES MANAGER HOME O2 EVAL Routine 08/05/2022 2:41 PM NATIONAL FACILITIES MANAGER TYPE & SCREEN Routine 08/05/2022 10:53 AM NATIONAL FACILITIES MANAGER XR CHEST PA OR AP 1V Today 08/05/2022 5:52 AM NATIONAL FACILITIES MANAGER COMPREHENSIVE METABOLIC PANEL Routine 08/05/2022 2:11 AM NATIONAL FACILITIES MANAGER CBC W/DIFF AUTOMATED Routine 08/05/2022 2:11 AM NATIONAL FACILITIES MANAGER CT CHEST WO CON Today 08/04/2022 3:22 PM NATIONAL FACILITIES MANAGER XR CHEST PA OR AP 1V Today 08/04/2022 5:27 AM NATIONAL FACILITIES MANAGER COMPREHENSIVE METABOLIC PANEL Routine 08/04/2022 2:34 AM NATIONAL FACILITIES MANAGER CBC W/DIFF AUTOMATED Routine 08/04/2022 2:34 AM NATIONAL FACILITIES MANAGER XR CHEST PA OR AP 1V Today 08/03/2022 5:50 AM NATIONAL FACILITIES MANAGER COMPREHENSIVE METABOLIC PANEL Routine 08/03/2022 2:22 AM NATIONAL FACILITIES MANAGER CBC W/DIFF AUTOMATED Routine 08/03/2022 2:22 AM NATIONAL FACILITIES MANAGER XR CHEST PORTABLE STAT 08/02/2022 9:5 8 AM NATIONAL FACILITIES MANAGER CULTURE, TISSUE W/GRAM STAIN Nurse Collected Priority 08/02/2022 8:38 AM NATIONAL FACILITIES MANAGER CULTURE, FUNGUS Nurse Collected Priority 08/02/2022 8:38 AM NATIONAL FACILITIES MANAGER CULTURE TB/AFB OTHER Routine 08/02/2022 8:38 AM NATIONAL FACILITIES MANAGER HC SMEAR ACID FAST/FLUOR-90 Routine 08/02/2022 8:38 AM NATIONAL FACILITIES MANAGER CULTURE, ANAEROBIC Nurse Collected Priority 08/02/2022 8:38 AM NATIONAL FACILITIES MANAGER THORACOSCOPY W DIAGNOSITC BIOPSY OF LUNG INFILTRATES 08/02/2022 7:13 AM NATIONAL FACILITIES MANAGER PLEURAL EFFUSION Case Notes PATHOLOGY Routine 08/02/2022 7:03 AM NATIONAL FACILITIES MANAGER TYPE & SCREEN Routine 08/01/2022 11:11 PM NATIONAL FACILITIES MANAGER BMP WITHOUT GLUCOSE TIMED 08/01/2022 1 1:31 AM NATIONAL FACILITIES MANAGER VANCOMYCIN TIMED 08/01/2022 11:31 AM NATIONAL FACILITIES MANAGER COMPREHENSIVE METABOLIC PANEL Routine 08/01/2022 2:42 AM NATIONAL FACILITIES MANAGER CBC W/DIFF AUTOMATED Routine 08/01/2022 2:42 AM NATIONAL FACILITIES MANAGER COMPREHENSIVE METABOLIC PANEL Routine 07/31/2022 11:13 AM NATIONAL FACILITIES MANAGER CT CHEST WO CON JAC 07/31/2022 10:22 AM NATIONAL FACILITIES MANAGER CBC W/DIFF AUTOMATED Routine 07/31/2022 9:41 AM NATIONAL FACILITIES MANAGER XR CHEST PORTABLE Routine 07/31/2022 6:0 0 AM NATIONAL FACILITIES MANAGER BRONCHOSCOPY Routine 07/30/2022 4:15 PM NATIONAL FACILITIES MANAGER CULTURE RESPIRATORY W/ GRAM STAIN TIMED 07/30/2022 3:30 PM NATIONAL FACILITIES MANAGER CULTURE, QUANTITATIVE W/ GRAM STAIN TIMED 07/30/2022 3:30 PM NATIONAL FACILITIES MANAGER CULTURE VIRAL RESPIRATORY RAPID Routine 07/30/2022 3:30 PM NATIONAL FACILITIES MANAGER CULTURE, FUNGUS TIMED 07/30/2022 3:30 PM NATIONAL FACILITIES MANAGER CULTURE HERPES Routine 07/30/2022 3:30 PM NATIONAL FACILITIES MANAGER CULTURE CMV Routine 07/30/2022 3:30 PM NATIONAL FACILITIES MANAGER CULTURE TB/AFB OTHER Routine 07/30/2022 3:30 PM NATIONAL FACILITIES MANAGER HC SMEAR ACID FAST/FLUOR-90 Routine 07/30/2022 3:30 PM NATIONAL FACILITIES MANAGER BRONCHOSCOPY 07/30/2022 2:41 PM NATIONAL FACILITIES MANAGER VANCOMYCIN TIMED 07/30/2022 6:17 AM NATIONAL FACILITIES MANAGER XR CHEST PORTABLE Routine 07/30/2022 5:2 7 AM NATIONAL FACILITIES MANAGER CYTOLOGY GENERIC Routine 07/30/2022 12:0 0 AM NATIONAL FACILITIES MANAGER CYTOLOGY GENERIC Routine 07/30/2022 12:0 0 AM NATIONAL FACILITIES MANAGER CULTURE RESPIRATORY W/ GRAM STAIN Nurse Collected Priority 07/28/2022 2:25 PM NATIONAL FACILITIES MANAGER CULTURE, FUNGUS Nurse Collected Priority 07/28/2022 2:25 PM NATIONAL FACILITIES MANAGER US ABD LIMITED Today 07/28/2022 11:39 AM NATIONAL FACILITIES MANAGER BASIC METABOLIC PANEL Routine 07/28/2022 7:03 AM NATIONAL FACILITIES MANAGER CBC W/DIFF AUTOMATED Routine 07/28/2022 7:03 AM NATIONAL FACILITIES MANAGER VANCOMYCIN TIMED 07/28/2022 7:03 AM NATIONAL FACILITIES MANAGER XR CHEST PORTABLE JAC 07/28/2022 12: 43 AM NATIONAL FACILITIES MANAGER XR CHEST PORTABLE JAC 07/27/2022 4:2 2 PM NATIONAL FACILITIES MANAGER USE ECHOCARDIOGRAM Today 07/27/2022 1: 13 PM NATIONAL FACILITIES MANAGER IR MIDLINE PLACEMENT GREATER 3YR STAT 07/27/2022 11:20 [address] FACILITIES MANAGER CT GD CHEST TUBE INSERT RT Today 07/27/2022 10:57 AM NATIONAL FACILITIES MANAGER LDH BODY FLUID Nurse Collected Priority 07/27/2022 10:30 AM NATIONAL FACILITIES MANAGER PROTEIN TOTAL FLUID Nurse Collected Priority 07/27/2022 10:30 AM NATIONAL FACILITIES MANAGER HC BODY FLUID CULTURE Routine 07/27/2022 10:30 AM NATIONAL FACILITIES MANAGER CULTURE, ANAEROBIC Routine 07/27/2022 10 :30 AM NATIONAL FACILITIES MANAGER CELL COUNT W/ DIFF BODY FLUID Nurse Collected Priority 07/27/2022 10:30 AM NATIONAL FACILITIES MANAGER TRANSFUSE RED BLOOD CELLS Routine 07/27/2022 4:45 AM NATIONAL FACILITIES MANAGER BMP WITHOUT GLUCOSE Routine 07/27/2022 2 :40 AM NATIONAL FACILITIES MANAGER CBC W/DIFF AUTOMATED Routine 07/27/2022 2:40 AM NATIONAL FACILITIES MANAGER HISTOPLASMA ANTIBODY PANEL Routine 07/26/2022 12:55 PM NATIONAL FACILITIES MANAGER PROCALCITONIN (PCT) Routine 07/26/2022 1 2:55 PM NATIONAL FACILITIES MANAGER HEMOGLOBIN AND HEMATOCRIT TIMED 07/26/2022 12:55 PM NATIONAL FACILITIES MANAGER BLASTOMYCES AB PANEL CF ID Routine 07/26/2022 12:55 PM NATIONAL FACILITIES MANAGER HAPTOGLOBIN, QUANT Routine 07/26/2022 9: 04 AM NATIONAL FACILITIES MANAGER BLOOD SMEAR INTERPRETATION BY Routine 07/26/2022 9:04 AM NATIONAL FACILITIES MANAGER XR CHEST PORTABLE JAC 07/26/2022 6:5 5 AM NATIONAL FACILITIES MANAGER SED RATE, ERYTHROCYTE (ESR) Routine 07/26/2022 2:38 AM NATIONAL FACILITIES MANAGER COMPREHENSIVE METABOLIC PANEL Routine 07/26/2022 2:38 AM NATIONAL FACILITIES MANAGER LDH, LACTATE DEHYDROGENASE Routine 07/26/2022 2:38 AM NATIONAL FACILITIES MANAGER C-REACTIVE PROTEIN Routine 07/26/2022 2: 38 AM NATIONAL FACILITIES MANAGER BLOOD GAS, ARTERIAL LAB STAT 07/26/2022 2:38 AM NATIONAL FACILITIES MANAGER CBC W/DIFF AUTOMATED STAT 07/26/2022 2:38 AM NATIONAL FACILITIES MANAGER CTA CHEST+ABD+PEL STAT 07/26/2022 12: 32 AM NATIONAL FACILITIES MANAGER HEMOGLOBIN AND HEMATOCRIT TIMED 07/25/2022 8:56 PM NATIONAL FACILITIES MANAGER RETICULOCYTE CT, AUTO Routine 07/25/2022 8:56 PM NATIONAL FACILITIES MANAGER HC INFECT AGENT DETECT OPTICAL Nurse Collected Priority 07/25/2022 8:31 PM NATIONAL FACILITIES MANAGER LEGIONELLA AG URINE Nurse Collected Priority 07/25/2022 8:31 PM NATIONAL FACILITIES MANAGER HIV 1 ANTIGEN(S), WITH HIV-1 AND HIV-2 ANTIBODIES Routine 07/25/2022 5:23 PM NATIONAL FACILITIES MANAGER HEMOGLOBIN AND HEMATOCRIT STAT 07/25/2022 5:23 PM NATIONAL FACILITIES MANAGER HC MYCOPLASMA AB-90 Routine 07/25/2022 5 :23 PM NATIONAL FACILITIES MANAGER TYPE & SCREEN STAT 07/25/2022 5:23 PM NATIONAL FACILITIES MANAGER PROTHROMBIN TIME, VENOUS Routine 07/25/2022 5:23 PM NATIONAL FACILITIES MANAGER LDH, LACTATE DEHYDROGENASE Routine 07/25/2022 5:23 PM NATIONAL FACILITIES MANAGER BLOOD SMEAR INTERPRETATION BY Routine 07/25/2022 5:23 PM NATIONAL FACILITIES MANAGER CULTURE, BACTERIA, BLOOD Routine 07/25/2022 2:17 PM NATIONAL FACILITIES MANAGER COMPREHENSIVE METABOLIC PANEL STAT 07/25/2022 2:16 PM NATIONAL FACILITIES MANAGER CULTURE, BACTERIA, BLOOD Routine 07/25/2022 2:16 PM NATIONAL FACILITIES MANAGER CBC W/DIFF AUTOMATED STAT 07/25/2022 2:16 PM NATIONAL FACILITIES MANAGER PATHOLOGY Routine 07/25/2022 12:00 AM NATIONAL FACILITIES MANAGER documented in this encounter Results * XR CHEST PA OR AP 1V (08/08/2022 5:37 AM NATIONAL FACILITIES MANAGER) Anatomical Region Laterality Modality Chest Radiographic Jasmina ging 08/08/2022 6:12 AM NATIONAL FACILITIES MANAGER Impressions 08/08/2022 6:15 AM NATIONAL FACILITIES MANAGER Impression: 1. ??Lines and tubes as described. 2. ??Persistent, but improving atelectasis in the lung bases. ??Scant effusions. Referred By: PROVIDER NON-STAFF Interpreted By: Antonio Lockett MD, 08/08/2022 6:12 AM Narrative 08/08/2022 6:15 AM NATIONAL FACILITIES MANAGER Date: 08/08/2022 5:34 AM Exam: XR CHEST [...] (ABNORMAL) COMPREHENSIVE METABOLIC PANEL (08/08/2022 2:22 AM NATIONAL FACILITIES MANAGER) SODIUM S/P/B 138 136 - 145 MMOL/L 08/08/2022 3:09 AM [facility] POTASSIUM S/P/B 3.5 3.5 - 5.1 MMOL/L 08/08/2022 3:09 AM [facility] CHLORIDE S/P/B 105 98 - 107 MMOL/L 08/08/2022 3:09 AM [facility] CO2 28.9 21.0 - 32.0 MMOL/L 08/08/2022 3:09 AM [facility] GLUCOSE 123(H) 74 - 106 MG/DL 08/08/2022 3:09 AM [facility] BUN 9 7 - 18 MG/DL 08/08/2022 3:09 AM [facility] CREATININE S/P/B 0.66(L) 0.70 - 1.30 MG/DL 08/08/2022 3:09 AM [facility] CALCIUM S/P/B 8.1(L) 8.5 - 10.1 MG/DL 08/08/2022 3:09 AM [facility] BILIRUBIN TOTAL S/P/B 0.5 0.2 - 1.0 MG/DL 08/08/2022 3:09 AM [facility] ALKALINE PHOSPHATASE S/P/B 47 45 - 115 U/L 08/08/2022 3:09 AM [facility] AST 11(L) 15 - 37 U/L 08/08/2022 3:09 AM [facility] ALT 8(L) 16 - 61 U/L 08/08/2022 3:09 AM [facility] TOTAL PROTEIN S/P/B 5.2(L) 6.4 - 8.2 G/DL 08/08/2022 3:09 AM [facility] ALBUMIN S/P/B 1.7(L) 3.4 - 5.0 G/DL 08/08/2022 3:09 AM [facility] ANION GAP 4.1(L) 5.0 - 15.0 MMOL/L 08/08/2022 3:09 AM [facility] OSMOLALITY (CALC) 286 MOSM/KG 022 3:09 AM [facility] Comment:REFERENCE RANGE NOT ESTABLISHED GFR ESTIMATE >90 >90 ML/MIN/1. 73 M2 08/08/2022 3:09 AM [facility] GFR NOTES GFR REFERENCE S: 08/08/2022 3:09 AM [facility] Comment: THE ESTIMATED GFR IS [...] FAILURE: <15 ml/min/1.73 m2 08/08/2022 2:22 AM NATIONAL FACILITIES MANAGER Lanre Winter MD LABORATORY Final Result [facility] [address] [place] [address], [id number] * (ABNORMAL) CBC W/DIFF AUTOMATED (08/08/2022 2:22 AM NATIONAL FACILITIES MANAGER) WBC 3.7(L) 4.0 - 10.8 x10'3/uL 08/08/2022 2:32 AM [facility] RBC 2.33(L) 4.50 - 6.10 x10'6/uL 08/08/2022 2:32 AM [facility] HGB 7.4(L) 13.0 - 18.0 G/DL 08/08/2022 2:32 AM [facility] HCT 23.7(L) 37.0 - 52.0 % 08/08/2022 2:32 AM [facility] MCV 101.7(H) 78.0 - 100.0 FL 08/08/2022 2:32 AM NATIONAL FACILITIES MANAGER [facility] MCH 31.8(H) 27.0 - 31.0 PG 08/08/2022 2:32 AM NATIONAL FACILITIES MANAGER [facility] MCHC 31.2(L) 33.0 - 36.0 G/DL 08/08/2022 2:32 AM [facility] RDW 14.9(H) 11.5 - 14.5 % 08/08/2022 2:32 AM NATIONAL FACILITIES MANAGER [facility] PLT 186 150 - 350 x10'3/uL 08/08/2022 2:32 AM [facility] MPV 10.2 7.4 - 10.4 FL 08/08/2022 2:32 AM NATIONAL FACILITIES MANAGER [facility] ABS. NEUTROPHILS 2.28 1.60 - 8.30 x10'3/uL 08/08/2022 2:32 AM NATIONAL FACILITIES MANAGER [facility] ABS. LYMPHOCYTES 0.91 0.80 - 4.70 x10'3/uL 08/08/2022 2:32 AM NATIONAL FACILITIES MANAGER [facility] ABS. MONOCYTES 0.40 0.00 - 1.50 x10'3/uL 08/08/2022 2:32 AM NATIONAL FACILITIES MANAGER [facility] ABS. EOSINOPHILS 0.10 0.00 - 0.40 x10'3/uL 08/08/2022 2:32 AM [facility] ABS. BASOPHILS 0.01 0.00 - 0.20 x10'3/uL 08/08/2022 2:32 AM [facility] ABS. IMMATURE GRANULOCYTES 0.02 0.00 - 0.03 x10'3/uL 08/08/2022 2:32 AM [facility] ABS. NUCLEATED RBC'S 0.00 0.0 x10'3/uL 08/08/2022 2:32 AM [facility] 08/08/2022 2:22 AM NATIONAL FACILITIES MANAGER Lanre Winter MD LABORATORY Final Result [facility] [address] [place] [address], [id number] * (ABNORMAL) HEMOGLOBIN AND HEMATOCRIT (08/07/2022 10:12 AM NATIONAL FACILITIES MANAGER) HGB 7.7(L) 13.0 - 18.0 G/DL 08/07/2022 10:27 AM NATIONAL FACILITIES MANAGER [facility] HCT 23.7(L) 37.0 - 52.0 % 08/07/2022 10:27 AM NATIONAL FACILITIES MANAGER [facility] 08/07/2022 10:1 2 AM NATIONAL FACILITIES MANAGER Lanre Winter MD LABORATORY Final Result [facility] [address] [place] [address], [id number] * XR CHEST PA OR AP 1V (08/07/2022 5:57 AM NATIONAL FACILITIES MANAGER) Anatomical Region Laterality Modality Chest Radiographic Jasmina ging 08/07/2022 6:38 AM NATIONAL FACILITIES MANAGER Impressions 08/07/2022 6:41 AM NATIONAL FACILITIES MANAGER IMPRESSION: 1. Persistent bilateral pneumonia with persistent infiltrates in the lower lobes with mild bibasilar pleural effusions, again right larger than left. 2. ??Suspect a small retrocardiac hiatal hernia. Referred By: PROVIDER NON-STAFF Interpreted By: Karine Sher MD, 08/07/2022 6:38 AM Narrative 08/07/2022 6:41 AM NATIONAL FACILITIES MANAGER EXAMINATION: XR Portable CXR, 1 View INDICATION: [...] PA OR AP 1V (08/06/2022 5:28 AM NATIONAL FACILITIES MANAGER) Anatomical Region Laterality Modality Chest Radiographic Jasmina ging 08/06/2022 6:29 AM NATIONAL FACILITIES MANAGER Impressions 08/06/2022 6:32 AM NATIONAL FACILITIES MANAGER IMPRESSION: Stable chest. Referred By: PROVIDER NON-STAFF Interpreted By: Wali Gary MD, 08/06/2022 6:29 AM Narrative 08/06/2022 6:32 AM NATIONAL FACILITIES MANAGER Examination: XR CHEST PA OR AP 1V [...] * Vancomycin Random Level (08/06/2022 4:27 AM NATIONAL FACILITIES MANAGER) Pathologist [facility] [place] VANCOMYCIN RANDOM 15.7 MCG/ML 08/06/2022 5:08 AM NATIONAL FACILITIES MANAGER [facility] Comment:REFERENCE RANGE NOT ESTABLISHED 08/06/2022 4:27 AM NATIONAL FACILITIES MANAGER Lanre Winter MD LABORATORY Final Result [facility] [address] [place] [address], [id number] * (ABNORMAL) COMPREHENSIVE METABOLIC PANEL (08/06/2022 4:27 AM NATIONAL FACILITIES MANAGER) Pathologist [facility] [place] SODIUM S/P/B 140 136 - 145 MMOL/L 08/06/2022 5:10 AM NATIONAL FACILITIES MANAGER [facility] POTASSIUM S/P/B 3.8 3.5 - 5.1 MMOL/L 08/06/2022 5:10 AM [facility] CHLORIDE S/P/B 107 98 - 107 MMOL/L 08/06/2022 5:10 AM [facility] CO2 27.3 21.0 - 32.0 MMOL/L 08/06/2022 5:10 AM [facility] GLUCOSE 87 74 - 106 MG/DL 08/06/2022 5:10 AM [facility] BUN 8 7 - 18 MG/DL 08/06/2022 5:10 AM [facility] CREATININE S/P/B 0.61(L) 0.70 - 1.30 MG/DL 08/06/2022 5:10 AM [facility] CALCIUM S/P/B 8.0(L) 8.5 - 10.1 MG/DL 08/06/2022 5:10 AM [facility] BILIRUBIN TOTAL S/P/B 0.3 0.2 - 1.0 MG/DL 08/06/2022 5:10 AM [facility] ALKALINE PHOSPHATASE S/P/B 43(L) 45 - 115 U/L 08/06/2022 5:10 AM [facility] AST 9(L) 15 - 37 U/L 08/06/2022 5:10 AM [facility] ALT 8(L) 16 - 61 U/L 08/06/2022 5:10 AM [facility] TOTAL PROTEIN S/P/B 5.2(L) 6.4 - 8.2 G/DL 08/06/2022 5:10 AM [facility] ALBUMIN S/P/B 1.6(L) 3.4 - 5.0 G/DL 08/06/2022 5:10 AM [facility] ANION GAP 5.7 5.0 - 15.0 MMOL/L 08/06/2022 5:10 AM [facility] OSMOLALITY (CALC) 288 MOSM/KG 022 5:10 AM NATIONAL FACILITIES MANAGER [facility] Comment:REFERENCE RANGE NOT ESTABLISHED GFR ESTIMATE >90 >90 ML/MIN/1. 73 M2 08/06/2022 5:10 AM NATIONAL FACILITIES MANAGER [facility] GFR NOTES GFR REFERENCE S: 08/06/2022 5:10 AM NATIONAL FACILITIES MANAGER [facility] Comment: THE ESTIMATED GFR IS [...] FAILURE: <15 ml/min/1.73 m2 08/06/2022 4:27 AM NATIONAL FACILITIES MANAGER us Lanre Winter MD LABORATORY Final Result [facility] [address] [place] [address], [id number] * (ABNORMAL) CBC W/DIFF AUTOMATED (08/06/2022 4:27 AM NATIONAL FACILITIES MANAGER) WBC 5.1 4.0 - 10.8 x10'3/uL 08/06/2022 4:45 AM NATIONAL FACILITIES MANAGER [facility] RBC 2.32(L) 4.50 - 6.10 x10'6/uL 08/06/2022 4:45 AM [facility] HGB 7.6(L) 13.0 - 18.0 G/DL 08/06/2022 4:45 AM NATIONAL FACILITIES MANAGER [facility] HCT 24.1(L) 37.0 - 52.0 % 08/06/2022 4:45 AM [facility] MCV 103.9(H) 78.0 - 100.0 FL 08/06/2022 4:45 AM [facility] MCH 32.8(H) 27.0 - 31.0 PG 08/06/2022 4:45 AM [facility] MCHC 31.5(L) 33.0 - 36.0 G/DL 08/06/2022 4:45 AM [facility] RDW 15.0(H) 11.5 - 14.5 % 08/06/2022 4:45 AM [facility] PLT 207 150 - 350 x10'3/uL 08/06/2022 4:45 AM [facility] MPV 10.4 7.4 - 10.4 FL 08/06/2022 4:45 AM [facility] ABS. NEUTROPHILS 3.59 1.60 - 8.30 x10'3/uL 08/06/2022 4:45 AM [facility] ABS. LYMPHOCYTES 0.90 0.80 - 4.70 x10'3/uL 08/06/2022 4:45 AM [facility] ABS. MONOCYTES 0.45 0.00 - 1.50 x10'3/uL 08/06/2022 4:45 AM [facility] ABS. EOSINOPHILS 0.09 0.00 - 0.40 x10'3/uL 08/06/2022 4:45 AM [facility] ABS. BASOPHILS 0.01 0.00 - 0.20 x10'3/uL 08/06/2022 4:45 AM [facility] ABS. IMMATURE GRANULOCYTES 0.03 0.00 - 0.03 x10'3/uL 08/06/2022 4:45 AM [facility] ABS. NUCLEATED RBC'S 0.00 0.0 x10'3/uL 08/06/2022 4:45 AM [facility] 08/06/2022 4:27 AM NATIONAL FACILITIES MANAGER us Lanre Winter MD LABORATORY Final Result Performing Organization Address [facility] Co de Phone Number [facility] [address] [place] [address], [place] [phone] [id number] * TYPE & SCREEN (08/05/2022 10:53 AM NATIONAL FACILITIES MANAGER) ABO/RH B POSITIVE 08/05/2022 12:05 PM NATIONAL FACILITIES MANAGER [facility] ANTIBODY SCREEN NEGATIVE 08/05/2022 12:05 PM NATIONAL FACILITIES MANAGER [facility] SAMPLE EXPIRATION 08/08/2022,2 359 08/05/2022 11:06 AM NATIONAL FACILITIES MANAGER [facility] 08/05/2022 10:5 3 AM NATIONAL FACILITIES MANAGER us Lanre Winter MD BLOOD BANK TEST ORDERABLES Fin al Result Performing Organization Address [facility] de Phone Number [facility] [address] [place] [address], [place] [phone] * XR CHEST PA OR AP 1V (08/05/2022 5:52 AM NATIONAL FACILITIES MANAGER) Anatomical Region Laterality Modality Chest Radiographic Jasmina ging 08/05/2022 7:35 AM NATIONAL FACILITIES MANAGER Impressions 08/05/2022 7:37 AM NATIONAL FACILITIES MANAGER IMPRESSION: Unchanged appearance of the chest when compared with the radiograph exam from yesterday. Ordered By: EDVIN POLLACK Interpreted By: Antonio Hill MD, 08/05/2022 7:35 AM Narrative 08/05/2022 7:37 AM NATIONAL FACILITIES MANAGER Examination: XR CHEST PA OR AP 1V, [...] (ABNORMAL) COMPREHENSIVE METABOLIC PANEL (08/05/2022 2:11 AM NATIONAL FACILITIES MANAGER) SODIUM S/P/B 136 136 - 145 MMOL/L 08/05/2022 3:20 AM [facility] POTASSIUM S/P/B 3.4(L) 3.5 - 5.1 MMOL/L 08/05/2022 3:20 AM [facility] CHLORIDE S/P/B 104 98 - 107 MMOL/L 08/05/2022 3:20 AM [facility] CO2 27.9 21.0 - 32.0 MMOL/L 08/05/2022 3:20 AM [facility] GLUCOSE 114(H) 74 - 106 MG/DL 08/05/2022 3:20 AM [facility] BUN 11 7 - 18 MG/DL 08/05/2022 3:20 AM [facility] CREATININE S/P/B 0.58(L) 0.70 - 1.30 MG/DL 08/05/2022 3:20 AM [facility] CALCIUM S/P/B 7.9(L) 8.5 - 10.1 MG/DL 08/05/2022 3:20 AM [facility] BILIRUBIN TOTAL S/P/B 0.4 0.2 - 1.0 MG/DL 08/05/2022 3:20 AM [facility] ALKALINE PHOSPHATASE S/P/B 39(L) 45 - 115 U/L 08/05/2022 3:20 AM [facility] AST 8(L) 15 - 37 U/L 08/05/2022 3:20 AM [facility] ALT 8(L) 16 - 61 U/L 08/05/2022 3:20 AM [facility] TOTAL PROTEIN S/P/B 4.9(L) 6.4 - 8.2 G/DL 08/05/2022 3:20 AM [facility] ALBUMIN S/P/B 1.5(L) 3.4 - 5.0 G/DL 08/05/2022 3:20 AM [facility] ANION GAP 4.1(L) 5.0 - 15.0 MMOL/L 08/05/2022 3:20 AM [facility] OSMOLALITY (CALC) 282 MOSM/KG 022 3:20 AM [facility] Comment:REFERENCE RANGE NOT ESTABLISHED GFR ESTIMATE >90 >90 ML/MIN/1. 73 M2 08/05/2022 3:20 AM [facility] GFR NOTES GFR REFERENCE S: 08/05/2022 3:20 AM [facility] Comment: THE ESTIMATED GFR IS [...] FAILURE: <15 ml/min/1.73 m2 08/05/2022 2:11 AM NATIONAL FACILITIES MANAGER us Lanre Winter MD LABORATORY Final Result [facility] [address] [place] [address], [place] [phone] [id number] * (ABNORMAL) CBC W/DIFF AUTOMATED (08/05/2022 2:11 AM NATIONAL FACILITIES MANAGER) WBC 6.6 4.0 - 10.8 x10'3/uL 08/05/2022 2:39 AM NATIONAL FACILITIES MANAGER [facility] RBC 2.17(L) 4.50 - 6.10 x10'6/uL 08/05/2022 2:39 AM NATIONAL FACILITIES MANAGER [facility] HGB 7.0(L) 13.0 - 18.0 G/DL 08/05/2022 2:39 AM NATIONAL FACILITIES MANAGER [facility] HCT 22.0(L) 37.0 - 52.0 % 08/05/2022 2:39 AM NATIONAL FACILITIES MANAGER [facility] MCV 101.4(H) 78.0 - 100.0 FL 08/05/2022 2:39 AM NATIONAL FACILITIES MANAGER [facility] MCH 32.3(H) 27.0 - 31.0 PG 08/05/2022 2:39 AM NATIONAL FACILITIES MANAGER [facility] MCHC 31.8(L) 33.0 - 36.0 G/DL 08/05/2022 2:39 AM NATIONAL FACILITIES MANAGER [facility] RDW 14.7(H) 11.5 - 14.5 % 08/05/2022 2:39 AM [facility] PLT 185 150 - 350 x10'3/uL 08/05/2022 2:39 AM [facility] MPV 11.0(H) 7.4 - 10.4 FL 08/05/2022 2:39 AM [facility] ABS. NEUTROPHILS 4.78 1.60 - 8.30 x10'3/uL 08/05/2022 2:39 AM [facility] ABS. LYMPHOCYTES 1.03 0.80 - 4.70 x10'3/uL 08/05/2022 2:39 AM [facility] ABS. MONOCYTES 0.68 0.00 - 1.50 x10'3/uL 08/05/2022 2:39 AM [facility] ABS. EOSINOPHILS 0.10 0.00 - 0.40 x10'3/uL 08/05/2022 2:39 AM [facility] ABS. BASOPHILS 0.01 0.00 - 0.20 x10'3/uL 08/05/2022 2:39 AM [facility] ABS. IMMATURE GRANULOCYTES 0.03 0.00 - 0.03 x10'3/uL 08/05/2022 2:39 AM [facility] ABS. NUCLEATED RBC'S 0.00 0.0 x10'3/uL 08/05/2022 2:39 AM [facility] 08/05/2022 2:11 AM NATIONAL FACILITIES MANAGER us Lanre Winter MD LABORATORY Final Result [facility] [address] [place] [address], [id number] * CT CHEST WO CON (08/04/2022 3:22 PM NATIONAL FACILITIES MANAGER) Anatomical Region Laterality Modality Chest Computed Tomogra phy 08/04/2022 3:35 PM NATIONAL FACILITIES MANAGER Impressions 08/04/2022 5:17 PM NATIONAL FACILITIES MANAGER IMPRESSION: 1. Interval decrease in size of [...] 08/04/2022 3:35 PM Narrative 08/04/2022 5:17 PM NATIONAL FACILITIES MANAGER EXAMINATION: CT CHEST - NON CONTRAST INDICATION: [...] PA OR AP 1V (08/04/2022 5:27 AM NATIONAL FACILITIES MANAGER) Anatomical Region Laterality Modality Chest Radiographic Jasmina ging 08/04/2022 6:43 AM NATIONAL FACILITIES MANAGER Impressions 08/04/2022 6:44 AM NATIONAL FACILITIES MANAGER IMPRESSION: ======== ?? 1. ??Increasing size of tiny right effusion with scattered right lower lung increasing infiltrates. ??Improving effusion on the left. Referred By: PROVIDER NON-STAFF Interpreted By: Mitch Carpenter MD, 08/04/2022 6:43 AM Narrative 08/04/2022 6:44 AM NATIONAL FACILITIES MANAGER Examination: Chest Radiograph, 1 view Exam Date/Time: [...] (ABNORMAL) COMPREHENSIVE METABOLIC PANEL (08/04/2022 2:34 AM NATIONAL FACILITIES MANAGER) SODIUM S/P/B 137 136 - 145 MMOL/L 08/04/2022 3:11 AM NATIONAL FACILITIES MANAGER [facility] POTASSIUM S/P/B 3.7 3.5 - 5.1 MMOL/L 08/04/2022 3:11 AM [facility] CHLORIDE S/P/B 103 98 - 107 MMOL/L 08/04/2022 3:11 AM [facility] CO2 28.6 21.0 - 32.0 MMOL/L 08/04/2022 3:11 AM NATIONAL FACILITIES MANAGER [facility] GLUCOSE 106 74 - 106 MG/DL 08/04/2022 3:11 AM [facility] BUN 12 7 - 18 MG/DL 08/04/2022 3:11 AM NATIONAL FACILITIES MANAGER [facility] CREATININE S/P/B 0.62(L) 0.70 - 1.30 MG/DL 08/04/2022 3:11 AM NATIONAL FACILITIES MANAGER [facility] CALCIUM S/P/B 7.9(L) 8.5 - 10.1 MG/DL 08/04/2022 3:11 AM [facility] BILIRUBIN TOTAL S/P/B 0.6 0.2 - 1.0 MG/DL 08/04/2022 3:11 AM [facility] ALKALINE PHOSPHATASE S/P/B 41(L) 45 - 115 U/L 08/04/2022 3:11 AM NATIONAL FACILITIES MANAGER [facility] AST 11(L) 15 - 37 U/L 08/04/2022 3:11 AM [facility] ALT 11(L) 16 - 61 U/L 08/04/2022 3:11 AM [facility] TOTAL PROTEIN S/P/B 5.0(L) 6.4 - 8.2 G/DL 08/04/2022 3:11 AM NATIONAL FACILITIES MANAGER [facility] ALBUMIN S/P/B 1.6(L) 3.4 - 5.0 G/DL 08/04/2022 3:11 AM NATIONAL FACILITIES MANAGER [facility] ANION GAP 5.4 5.0 - 15.0 MMOL/L 08/04/2022 3:11 AM [facility] OSMOLALITY (CALC) 284 MOSM/KG 022 3:11 AM [facility] Comment:REFERENCE RANGE NOT ESTABLISHED GFR ESTIMATE >90 >90 ML/MIN/1. 73 M2 08/04/2022 3:11 AM [facility] GFR NOTES GFR REFERENCE S: 08/04/2022 3:11 AM [facility] Comment: THE ESTIMATED GFR IS [...] FAILURE: <15 ml/min/1.73 m2 08/04/2022 2:34 AM NATIONAL FACILITIES MANAGER us Lanre Winter MD LABORATORY Final Result [facility] [address] [place] [address], [id number] * (ABNORMAL) CBC W/DIFF AUTOMATED (08/04/2022 2:34 AM NATIONAL FACILITIES MANAGER) [facility] WBC 8.5 4.0 - 10.8 x10'3/uL 08/04/2022 2:41 AM [facility] RBC 2.39(L) 4.50 - 6.10 x10'6/uL 08/04/2022 2:41 AM [facility] HGB 7.6(L) 13.0 - 18.0 G/DL 08/04/2022 2:41 AM [facility] HCT 24.4(L) 37.0 - 52.0 % 08/04/2022 2:41 AM [facility] MCV 102.1(H) 78.0 - 100.0 FL 08/04/2022 2:41 AM [facility] MCH 31.8(H) 27.0 - 31.0 PG 08/04/2022 2:41 AM [facility] MCHC 31.1(L) 33.0 - 36.0 G/DL 08/04/2022 2:41 AM [facility] RDW 14.8(H) 11.5 - 14.5 % 08/04/2022 2:41 AM [facility] PLT 178 150 - 350 x10'3/uL 08/04/2022 2:41 AM [facility] MPV 10.3 7.4 - 10.4 FL 08/04/2022 2:41 AM [facility] ABS. NEUTROPHILS 6.33 1.60 - 8.30 x10'3/uL 08/04/2022 2:41 AM [facility] ABS. LYMPHOCYTES 1.11 0.80 - 4.70 x10'3/uL 08/04/2022 2:41 AM [facility] ABS. MONOCYTES 0.85 0.00 - 1.50 x10'3/uL 08/04/2022 2:41 AM NATIONAL FACILITIES MANAGER [facility] ABS. EOSINOPHILS 0.14 0.00 - 0.40 x10'3/uL 08/04/2022 2:41 AM NATIONAL FACILITIES MANAGER [facility] ABS. BASOPHILS 0.01 0.00 - 0.20 x10'3/uL 08/04/2022 2:41 AM NATIONAL FACILITIES MANAGER [facility] ABS. IMMATURE GRANULOCYTES 0.05(H) 0.00 - 0.03 x10'3/uL 08/04/2022 2:41 AM NATIONAL FACILITIES MANAGER [facility] ABS. NUCLEATED RBC'S 0.00 0.0 x10'3/uL 08/04/2022 2:41 AM NATIONAL FACILITIES MANAGER [facility] 08/04/2022 2:34 AM NATIONAL FACILITIES MANAGER Lanre Winter MD LABORATORY Final Result [facility] [address] [place] [address], [id number] * XR CHEST PA OR AP 1V (08/03/2022 5:50 AM NATIONAL FACILITIES MANAGER) Anatomical Region Laterality Modality Chest Radiographic Jasmina ging 08/03/2022 9:15 AM NATIONAL FACILITIES MANAGER Impressions 08/03/2022 9:16 AM NATIONAL FACILITIES MANAGER IMPRESSION: ======== ?? Developing tiny right pleural effusion otherwise stable interval appearance of infiltrates or atelectasis in the lung bases with probable left effusion. Referred By: PROVIDER NON-STAFF Interpreted By: Mitch Carpenter MD, 08/03/2022 9:15 AM Narrative 08/03/2022 9:16 AM NATIONAL FACILITIES MANAGER Examination: Chest Radiograph, 1 view Exam Date/Time: [...] (ABNORMAL) COMPREHENSIVE METABOLIC PANEL (08/03/2022 2:22 AM NATIONAL FACILITIES MANAGER) SODIUM S/P/B 136 136 - 145 MMOL/L 08/03/2022 3:42 AM NATIONAL FACILITIES MANAGER [facility] POTASSIUM S/P/B 3.8 3.5 - 5.1 MMOL/L 08/03/2022 3:42 AM [facility] CHLORIDE S/P/B 102 98 - 107 MMOL/L 08/03/2022 3:42 AM [facility] CO2 28.4 21.0 - 32.0 MMOL/L 08/03/2022 3:42 AM [facility] GLUCOSE 109(H) 74 - 106 MG/DL 08/03/2022 3:42 AM [facility] BUN 11 7 - 18 MG/DL 08/03/2022 3:42 AM [facility] CREATININE S/P/B 0.75 0.70 - 1.30 MG/DL 08/03/2022 3:42 AM [facility] CALCIUM S/P/B 8.0(L) 8.5 - 10.1 MG/DL 08/03/2022 3:42 AM [facility] BILIRUBIN TOTAL S/P/B 0.6 0.2 - 1.0 MG/DL 08/03/2022 3:42 AM [facility] ALKALINE PHOSPHATASE S/P/B 49 45 - 115 U/L 08/03/2022 3:42 AM [facility] AST 11(L) 15 - 37 U/L 08/03/2022 3:42 AM [facility] ALT 13(L) 16 - 61 U/L 08/03/2022 3:42 AM [facility] TOTAL PROTEIN S/P/B 5.4(L) 6.4 - 8.2 G/DL 08/03/2022 3:42 AM [facility] ALBUMIN S/P/B 1.9(L) 3.4 - 5.0 G/DL 08/03/2022 3:42 AM [facility] ANION GAP 5.6 5.0 - 15.0 MMOL/L 08/03/2022 3:42 AM [facility] OSMOLALITY (CALC) 282 MOSM/KG 022 3:42 AM NATIONAL FACILITIES MANAGER [facility] Comment:REFERENCE RANGE NOT ESTABLISHED GFR ESTIMATE >90 >90 ML/MIN/1. 73 M2 08/03/2022 3:42 AM NATIONAL FACILITIES MANAGER [facility] GFR NOTES GFR REFERENCE S: 08/03/2022 3:42 AM NATIONAL FACILITIES MANAGER [facility] Comment: THE ESTIMATED GFR IS [...] FAILURE: <15 ml/min/1.73 m2 08/03/2022 2:22 AM NATIONAL FACILITIES MANAGER Lanre Winter MD LABORATORY Final Result [facility] [address] [place] [address], [id number] * (ABNORMAL) CBC W/DIFF AUTOMATED (08/03/2022 2:22 AM NATIONAL FACILITIES MANAGER) WBC 11.0(H) 4.0 - 10.8 x10'3/uL 08/03/2022 3:09 AM NATIONAL FACILITIES MANAGER [facility] RBC 2.84(L) 4.50 - 6.10 x10'6/uL 08/03/2022 3:09 AM NATIONAL FACILITIES MANAGER [facility] HGB 9.2(L) 13.0 - 18.0 G/DL 08/03/2022 3:09 AM NATIONAL FACILITIES MANAGER [facility] HCT 28.9(L) 37.0 - 52.0 % 08/03/2022 3:09 AM [facility] MCV 101.8(H) 78.0 - 100.0 FL 08/03/2022 3:09 AM [facility] MCH 32.4(H) 27.0 - 31.0 PG 08/03/2022 3:09 AM [facility] MCHC 31.8(L) 33.0 - 36.0 G/DL 08/03/2022 3:09 AM [facility] RDW 15.1(H) 11.5 - 14.5 % 08/03/2022 3:09 AM [facility] PLT 216 150 - 350 x10'3/uL 08/03/2022 3:09 AM [facility] MPV 10.8(H) 7.4 - 10.4 FL 08/03/2022 3:09 AM [facility] ABS. NEUTROPHILS 8.98(H) 1.60 - 8.30 x10'3/uL 08/03/2022 3:09 AM [facility] ABS. LYMPHOCYTES 0.81 0.80 - 4.70 x10'3/uL 08/03/2022 3:09 AM [facility] ABS. MONOCYTES 1.00 0.00 - 1.50 x10'3/uL 08/03/2022 3:09 AM [facility] ABS. EOSINOPHILS 0.12 0.00 - 0.40 x10'3/uL 08/03/2022 3:09 AM [facility] ABS. BASOPHILS 0.01 0.00 - 0.20 x10'3/uL 08/03/2022 3:09 AM [facility] ABS. IMMATURE GRANULOCYTES 0.08(H) 0.00 - 0.03 x10'3/uL 08/03/2022 3:09 AM [facility] ABS. NUCLEATED RBC'S 0.00 0.0 x10'3/uL 08/03/2022 3:09 AM [facility] 08/03/2022 2:22 AM NATIONAL FACILITIES MANAGER Lanre Winter MD LABORATORY Final Result [facility] [address] [place] [address], [place] [phone] * XR CHEST PORTABLE (08/02/2022 9:58 AM NATIONAL FACILITIES MANAGER) Anatomical Region Laterality Modality Chest Radiographic Jasmina ging 08/02/2022 10:5 5 AM NATIONAL FACILITIES MANAGER Impressions 08/02/2022 10:57 AM NATIONAL FACILITIES MANAGER IMPRESSION: 1. Unchanged bibasilar opacities. Ordered By: EDVIN POLLACK Interpreted By: Atilio Read MD, 08/02/2022 10:55 AM Narrative 08/02/2022 10:57 AM NATIONAL FACILITIES MANAGER Examination: X-ray chest, 1 view Exam time: [...] Read MD, 08/02/2022 10:55 AM Edvin Pollack [facility] GENERAL IMAGING Final Result * SMEAR,FLUOR STAIN,ACID FAST (08/02/2022 8:38 AM NATIONAL FACILITIES MANAGER) ACID FAST SMEAR RESULT SEE NOTE 07:45 PM 08/05/2022 7:45 PM NATIONAL FACILITIES MANAGER [facility] Comment: Test ?Result ??Flag ??Unit ??RefValue Acid Fast Smear For Mycobacterium SOURCE: LUNG, RIGHT, RT DECORTICATION TIS ACID FAST SMEAR FOR MYCOBACTERIUM ?FINAL Negative. Test Performed by: [place] [address] Retail Sales Lead: Brent Alcaraz M.D. Ph.D.; CLIA# [id number] 08/02/2022 8:38 AM NATIONAL FACILITIES MANAGER us Ross Blackburn MD MICROBIOLOGY - GENERAL OR DERABLES Final Result [facility] [address] [place] [address] * CULTURE, TISSUE W/GRAM STAIN (08/02/2022 8:38 AM NATIONAL FACILITIES MANAGER) SPEC DESCRIPTION TISSUE: RT DECORTICATION TISU 08/02/2022 8:43 AM NATIONAL FACILITIES MANAGER [facility] SPECIAL REQUESTS NO SPECIAL REQUEST 08/02/2022 8:43 AM NATIONAL FACILITIES MANAGER [facility] GRAM STAIN RESULT MODERATE NEUTROPHILS SEEN 08/02/2022 4:02 PM [facility] GRAM STAIN RESULT NO ORGANISMS SEEN 08/02/2022 4:02 PM [facility] CULTURE RESULT NO GROWTH 5 DAYS 01/2022 11:36 AM [facility] TISSUE TISSUE SPECIMEN / Unknown 08/02/2022 8:38 AM NATIONAL FACILITIES MANAGER Ross Blackburn MD MICROBIOLOGY - GENERAL OR DERABLES Final Result [facility] [address] [place] [address], [id number] * CULTURE, FUNGUS (08/02/2022 8:38 AM NATIONAL FACILITIES MANAGER) SOURCE (PAHRUMP) TISSUE 08/02/2022 10:10 AM [facility] Comment:RT DECORTICATION TIS U CULTURE RESULT SEE NOTE 08/29/2022 01:03 AM 08/29/2022 1:03 AM NATIONAL FACILITIES MANAGER [facility] Comment: Test ?Result ?Flag ??Unit ??RefValue Fungal Culture, Routine ? SOURCE: LUNG, RIGHT, TISSUE RT DECORTICATION TISU FUNGAL CULTURE, ROUTINE ?FINAL No growth after 24 days of incubation. Test Performed by: [address] [address] Retail Sales Lead: Brent Alcaraz M.D. Ph.D.; CLIA# [id number] TISSUE (OTHER (type in comments)) 08/02/2022 8:38 AM NATIONAL FACILITIES MANAGER Ross Blackburn MD MICROBIOLOGY - GENERAL OR DERABLES Final Result [facility] [address] [place] [address] [facility] [address] [place] [address], [id number] * CULTURE TB/AFB OTHER (TYPE IN COMMENTS) (08/02/2022 8:38 AM NATIONAL FACILITIES MANAGER) SOURCE (PAHRUMP) TISSUE 08/02/2022 10:09 AM NATIONAL FACILITIES MANAGER [facility] Comment:RT DECORTICATION TIS U CULTURE RESULT SEE NOTE 09/16/2022 01:03 AM 09/16/2022 1:03 AM NATIONAL FACILITIES MANAGER [facility] Comment: Test ?Result ?Flag ??Unit ??RefValue Mycobacterial Culture ? SOURCE: LUNG, RIGHT, TISSUE RT DECORTICATION TISU MYCOBACTERIAL CULTURE ?FINAL No growth after 42 days of incubation. Test Performed by: [facility] [address] [place] [address] Retail Sales Lead: Brent Alcaraz M.D. Ph.D.; CLIA# [id number] TISSUE (OTHER (type in comments)) 08/02/2022 8:38 AM NATIONAL FACILITIES MANAGER Ross Blackburn MD MICROBIOLOGY - GENERAL OR DERABLES Final Result Performing Organization Address [facility] Co de Phone Number [facility] [address] [place] [address] [facility] [address] [place] [address], [id number] * CULTURE, ANAEROBIC (08/02/2022 8:38 AM NATIONAL FACILITIES MANAGER) SPEC DESCRIPTION TISSUE: RT DECORTICATION TISU 08/02/2022 8:43 AM NATIONAL FACILITIES MANAGER [facility] SPECIAL REQUESTS NO SPECIAL REQUEST 08/02/2022 8:43 AM NATIONAL FACILITIES MANAGER [facility] CULTURE RESULT NO ANAEROBES ISOLATED 08/07/2022 9:10 AM NATIONAL FACILITIES MANAGER [facility] TISSUE TISSUE SPECIMEN / Unknown 08/02/2022 8:38 AM NATIONAL FACILITIES MANAGER Ross Blackburn MD MICROBIOLOGY - GENERAL OR DERABLES Final Result Performing Organization Address City/[facility]/ZIP Co de Phone Number [facility] [address] [place] [address], [id number] * Pathology (08/02/2022 7:03 AM NATIONAL FACILITIES MANAGER) PATHOLOGY [facility] ? Department of Laboratory Medicine ?[address] [facility] ?[place] [address] ? , extension [phone] ? Pathology Report ? Surgical Pathology Report Name: RAY PHILLIPS ? Specimen #: [id number] Age: 9 1955 (Age: 67) ? Location: [facility] Sex: M ?Procedure Date: 08/02/2022 Hospital #: [id number] ?Date Received: 08/02/2022 Date Reported: 08/07/2022 Provider: ROSS BLACKBURN MD Source: Pleural peel, right Clinical History: Pleural effusion Gross Description: Received in formalin, labeled with a patient label and as right lung decortication tissue are multiple pieces and fragments of edematous pale [id number] tissue. ??Some of the pieces exhibit some hemorrhagic areas. The pieces are 6 x 4 x 1.0 cm in aggregate. ??Life Skills Consultant tissue is submitted in cassettes 1-4. Gross examination (when applicable), interpretation and sign-out were performed at [facility], [address] [place] [address], [place], [place], [address]. FINAL DIAGNOSIS: PLEURAL PEEL, RIGHT: ? - CONSISTENT WITH ACUTE FIBRINOUS PLEURITIS. IC: CBG Electronically Signed Out ? GADIEL HANSON MD [facility] TISSUE (OTHER (type in comments)) 08/02/2022 7:03 AM NATIONAL FACILITIES MANAGER us Ross Blackburn MD PATHOLOGY/CYTOLOGY ORDERA BLES Final Result Performing Organization Address [facility] Co de Phone Number [facility] [address] [place] [address], [place] [phone] * TYPE & SCREEN (08/01/2022 11:11 PM NATIONAL FACILITIES MANAGER) ABO/RH B POSITIVE 08/02/2022 12:25 AM NATIONAL FACILITIES MANAGER [facility] ANTIBODY SCREEN NEGATIVE 08/02/2022 12:25 AM NATIONAL FACILITIES MANAGER [facility] SAMPLE EXPIRATION 08/04/2022,2 359 08/01/2022 11:27 PM NATIONAL FACILITIES MANAGER [facility] 08/01/2022 11:1 1 PM NATIONAL FACILITIES MANAGER us Ross Blackburn MD BLOOD BANK TEST ORDERABLE S Final Result Performing Organization Address [facility] de Phone Number [facility] [address] [place] [address], [place] [phone] * (ABNORMAL) BMP WITHOUT GLUCOSE (08/01/2022 11:31 AM NATIONAL FACILITIES MANAGER) SODIUM S/P/B 138 136 - 145 MMOL/L 08/01/2022 12:12 PM NATIONAL FACILITIES MANAGER [facility] POTASSIUM S/P/B 3.9 3.5 - 5.1 MMOL/L 08/01/2022 12:12 PM NATIONAL FACILITIES MANAGER [facility] CHLORIDE S/P/B 107 98 - 107 MMOL/L 08/01/2022 12:12 PM NATIONAL FACILITIES MANAGER [facility] CO2 24.1 21.0 - 32.0 MMOL/L 08/01/2022 12:12 PM NATIONAL FACILITIES MANAGER [facility] BUN 16 7 - 18 MG/DL 08/01/2022 12:12 PM NATIONAL FACILITIES MANAGER [facility] CREATININE S/P/B 0.70 0.70 - 1.30 MG/DL 08/01/2022 12:12 PM NATIONAL FACILITIES MANAGER [facility] CALCIUM S/P/B 7.9(L) 8.5 - 10.1 MG/DL 08/01/2022 12:12 PM NATIONAL FACILITIES MANAGER [facility] ANION GAP 6.9 5.0 - 15.0 MMOL/L 08/01/2022 12:12 PM NATIONAL FACILITIES MANAGER [facility] GFR ESTIMATE >90 >90 ML/MIN/1. 73 M2 08/01/2022 12:12 PM NATIONAL FACILITIES MANAGER [facility] GFR NOTES GFR REFERENCE S: 08/01/2022 12:12 PM [facility] Comment: THE ESTIMATED GFR IS [...] <15 ml/min/1.73 m2 08/01/2022 11:3 1 AM NATIONAL FACILITIES MANAGER Florencio Amaya MD LABORATORY Final Result [facility] [address] [place] [address], [id number] * Vancomycin Random Level (08/01/2022 11:31 AM NATIONAL FACILITIES MANAGER) VANCOMYCIN RANDOM 18.7 MCG/ML 08/01/2022 12:30 PM NATIONAL FACILITIES MANAGER [facility] 08/01/2022 11:3 1 AM NATIONAL FACILITIES MANAGER Florencio Amaya MD LABORATORY Final Result [facility] [address] [place] [address], [id number] * (ABNORMAL) COMPREHENSIVE METABOLIC PANEL (08/01/2022 2:42 AM NATIONAL FACILITIES MANAGER) SODIUM S/P/B 140 136 - 145 MMOL/L 08/01/2022 4:00 AM [facility] POTASSIUM S/P/B 3.4(L) 3.5 - 5.1 MMOL/L 08/01/2022 4:00 AM [facility] CHLORIDE S/P/B 107 98 - 107 MMOL/L 08/01/2022 4:00 AM [facility] CO2 27.2 21.0 - 32.0 MMOL/L 08/01/2022 4:00 AM [facility] GLUCOSE 145(H) 74 - 106 MG/DL 08/01/2022 4:00 AM [facility] BUN 19(H) 7 - 18 MG/DL 08/01/2022 4:00 AM [facility] CREATININE S/P/B 0.77 0.70 - 1.30 MG/DL 08/01/2022 4:00 AM [facility] CALCIUM S/P/B 8.1(L) 8.5 - 10.1 MG/DL 08/01/2022 4:00 AM [facility] BILIRUBIN TOTAL S/P/B 0.4 0.2 - 1.0 MG/DL 08/01/2022 4:00 AM [facility] ALKALINE PHOSPHATASE S/P/B 50 45 - 115 U/L 08/01/2022 4:00 AM [facility] AST 8(L) 15 - 37 U/L 08/01/2022 4:00 AM [facility] ALT 14(L) 16 - 61 U/L 08/01/2022 4:00 AM [facility] TOTAL PROTEIN S/P/B 5.0(L) 6.4 - 8.2 G/DL 08/01/2022 4:00 AM [facility] ALBUMIN S/P/B 1.7(L) 3.4 - 5.0 G/DL 08/01/2022 4:00 AM [facility] ANION GAP 5.8 5.0 - 15.0 MMOL/L 08/01/2022 4:00 AM [facility] OSMOLALITY (CALC) 295 MOSM/KG 022 4:00 AM [facility] Comment:REFERENCE RANGE NOT ESTABLISHED GFR ESTIMATE >90 >90 ML/MIN/1. 73 M2 08/01/2022 4:00 AM [facility] GFR NOTES GFR REFERENCE S: 08/01/2022 4:00 AM [facility] Comment: THE ESTIMATED GFR IS [...] FAILURE: <15 ml/min/1.73 m2 08/01/2022 2:42 AM NATIONAL FACILITIES MANAGER us Lanre Winter MD LABORATORY Final Result [facility] [address] [place] [address], [place] [phone] * (ABNORMAL) CBC W/DIFF AUTOMATED (08/01/2022 2:42 AM NATIONAL FACILITIES MANAGER) WBC 11.1(H) 4.0 - 10.8 x10'3/uL 08/01/2022 3:32 AM [facility] RBC 2.58(L) 4.50 - 6.10 x10'6/uL 08/01/2022 3:32 AM [facility] HGB 8.6(L) 13.0 - 18.0 G/DL 08/01/2022 3:32 AM [facility] HCT 26.4(L) 37.0 - 52.0 % 08/01/2022 3:32 AM [facility] MCV 102.3(H) 78.0 - 100.0 FL 08/01/2022 3:32 AM [facility] MCH 33.3(H) 27.0 - 31.0 PG 08/01/2022 3:32 AM [facility] MCHC 32.6(L) 33.0 - 36.0 G/DL 08/01/2022 3:32 AM [facility] RDW 15.4(H) 11.5 - 14.5 % 08/01/2022 3:32 AM [facility] PLT 246 150 - 350 x10'3/uL 08/01/2022 3:32 AM [facility] MPV 10.4 7.4 - 10.4 FL 08/01/2022 3:32 AM [facility] ABS. NEUTROPHILS 8.96(H) 1.60 - 8.30 x10'3/uL 08/01/2022 3:32 AM [facility] ABS. LYMPHOCYTES 1.27 0.80 - 4.70 x10'3/uL 08/01/2022 3:32 AM [facility] ABS. MONOCYTES 0.60 0.00 - 1.50 x10'3/uL 08/01/2022 3:32 AM [facility] ABS. EOSINOPHILS 0.12 0.00 - 0.40 x10'3/uL 08/01/2022 3:32 AM NATIONAL FACILITIES MANAGER [facility] ABS. BASOPHILS 0.01 0.00 - 0.20 x10'3/uL 08/01/2022 3:32 AM NATIONAL FACILITIES MANAGER [facility] ABS. IMMATURE GRANULOCYTES 0.14(H) 0.00 - 0.03 x10'3/uL 08/01/2022 3:32 AM NATIONAL FACILITIES MANAGER [facility] ABS. NUCLEATED RBC'S 0.00 0.0 x10'3/uL 08/01/2022 3:32 AM [facility] 08/01/2022 2:42 AM NATIONAL FACILITIES MANAGER Lanre Winter MD LABORATORY Final Result [facility] [address] [place] [address], [id number] * (ABNORMAL) COMPREHENSIVE METABOLIC PANEL (07/31/2022 11:13 AM NATIONAL FACILITIES MANAGER) SODIUM S/P/B 137 136 - 145 MMOL/L 07/31/2022 11:54 AM [facility] POTASSIUM S/P/B 3.6 3.5 - 5.1 MMOL/L 07/31/2022 11:54 AM [facility] CHLORIDE S/P/B 104 98 - 107 MMOL/L 07/31/2022 11:54 AM [facility] CO2 27.8 21.0 - 32.0 MMOL/L 07/31/2022 11:54 AM [facility] GLUCOSE 106 74 - 106 MG/DL 07/31/2022 11:54 AM [facility] BUN 20(H) 7 - 18 MG/DL 07/31/2022 11:54 AM [facility] CREATININE S/P/B 0.74 0.70 - 1.30 MG/DL 07/31/2022 11:54 AM [facility] CALCIUM S/P/B 8.1(L) 8.5 - 10.1 MG/DL 07/31/2022 11:54 AM [facility] BILIRUBIN TOTAL S/P/B 0.3 0.2 - 1.0 MG/DL 07/31/2022 11:54 AM [facility] ALKALINE PHOSPHATASE S/P/B 54 45 - 115 U/L 07/31/2022 11:54 AM [facility] AST 8(L) 15 - 37 U/L 07/31/2022 11:54 AM [facility] ALT 15(L) 16 - 61 U/L 07/31/2022 11:54 AM [facility] TOTAL PROTEIN S/P/B 5.6(L) 6.4 - 8.2 G/DL 07/31/2022 11:54 AM [facility] ALBUMIN S/P/B 1.9(L) 3.4 - 5.0 G/DL 07/31/2022 11:54 AM [facility] ANION GAP 5.2 5.0 - 15.0 MMOL/L 07/31/2022 11:54 AM [facility] OSMOLALITY (CALC) 287 MOSM/KG 022 11:54 AM [facility] Comment:REFERENCE RANGE NOT ESTABLISHED GFR ESTIMATE >90 >90 ML/MIN/1. 73 M2 07/31/2022 11:54 AM [facility] GFR NOTES GFR REFERENCE S: 07/31/2022 11:54 AM [facility] Comment: THE ESTIMATED GFR IS [...] <15 ml/min/1.73 m2 07/31/2022 11:1 3 AM NATIONAL FACILITIES MANAGER Lanre Winter MD LABORATORY Final Result [facility] [address] [place] [address], [id number] * CT CHEST WO CON (07/31/2022 10:22 AM NATIONAL FACILITIES MANAGER) Anatomical Region Laterality Modality Chest Computed Tomogra phy 07/31/2022 1:56 PM NATIONAL FACILITIES MANAGER Impressions 07/31/2022 2:07 PM NATIONAL FACILITIES MANAGER IMPRESSION: 1. Focal loculated hydropneumothorax, right posterior [...] 07/31/2022 1:56 PM Narrative 07/31/2022 2:07 PM NATIONAL FACILITIES MANAGER EXAMINATION: CT Chest without contrast DATE: 07/31/2022 [...] (ABNORMAL) CBC W/DIFF AUTOMATED (07/31/2022 9:41 AM NATIONAL FACILITIES MANAGER) WBC 16.2(H) 4.0 - 10.8 x10'3/uL 07/31/2022 9:55 AM NATIONAL FACILITIES MANAGER [facility] RBC 3.07(L) 4.50 - 6.10 x10'6/uL 07/31/2022 9:55 AM NATIONAL FACILITIES MANAGER [facility] HGB 10.1(L) 13.0 - 18.0 G/DL 07/31/2022 9:55 AM NATIONAL FACILITIES MANAGER [facility] HCT 31.0(L) 37.0 - 52.0 % 07/31/2022 9:55 AM NATIONAL FACILITIES MANAGER [facility] MCV 101.0(H) 78.0 - 100.0 FL 07/31/2022 9:55 AM NATIONAL FACILITIES MANAGER [facility] MCH 32.9(H) 27.0 - 31.0 PG 07/31/2022 9:55 AM NATIONAL FACILITIES MANAGER [facility] MCHC 32.6(L) 33.0 - 36.0 G/DL 07/31/2022 9:55 AM NATIONAL FACILITIES MANAGER [facility] RDW 15.3(H) 11.5 - 14.5 % 07/31/2022 9:55 AM NATIONAL FACILITIES MANAGER [facility] PLT 277 150 - 350 x10'3/uL 07/31/2022 9:55 AM NATIONAL FACILITIES MANAGER [facility] MPV 10.4 7.4 - 10.4 FL 07/31/2022 9:55 AM NATIONAL FACILITIES MANAGER [facility] ABS. NEUTROPHILS 14.00(H) 1.60 - 8.30 x10'3/uL 07/31/2022 9:55 AM NATIONAL FACILITIES MANAGER [facility] ABS. LYMPHOCYTES 1.26 0.80 - 4.70 x10'3/uL 07/31/2022 9:55 AM NATIONAL FACILITIES MANAGER [facility] ABS. MONOCYTES 0.59 0.00 - 1.50 x10'3/uL 07/31/2022 9:55 AM NATIONAL FACILITIES MANAGER [facility] ABS. EOSINOPHILS 0.01 0.00 - 0.40 x10'3/uL 07/31/2022 9:55 AM [facility] ABS. BASOPHILS 0.02 0.00 - 0.20 x10'3/uL 07/31/2022 9:55 AM [facility] ABS. IMMATURE GRANULOCYTES 0.36(H) 0.00 - 0.03 x10'3/uL 07/31/2022 9:55 AM NATIONAL FACILITIES MANAGER [facility] ABS. NUCLEATED RBC'S 0.03(H) 0.0 x10'3/uL 07/31/2022 9:55 AM NATIONAL FACILITIES MANAGER [facility] 07/31/2022 9:41 AM NATIONAL FACILITIES MANAGER Lanre Winter MD LABORATORY Final Result [facility] [address] [place] [address], [id number] * XR CHEST PORTABLE (07/31/2022 6:00 AM NATIONAL FACILITIES MANAGER) Anatomical Region Laterality Modality Chest Radiographic Jasmina ging 07/31/2022 9:13 AM NATIONAL FACILITIES MANAGER Impressions 07/31/2022 9:17 AM NATIONAL FACILITIES MANAGER IMPRESSION: 1. Right-sided chest remains in place. [...] 07/31/2022 9:13 AM Narrative 07/31/2022 9:17 AM NATIONAL FACILITIES MANAGER EXAM DESCRIPTION: Chest 1 view EXAM TIME [...] Res ult * Bronchoscopy (07/30/2022 4:15 PM NATIONAL FACILITIES MANAGER) Narrative Procedure Note Patti Pineda MD - [...] CULTURE VIRAL RESPIRATORY RAPID (07/30/2022 3:30 PM NATIONAL FACILITIES MANAGER) VIRAL RESP RAPID CULTURE W/RFX REPORT 08/05/2022 3:21 PM NATIONAL FACILITIES MANAGER [facility] Comment: Respiratory Culture Screen SOURCE : BWASH/BAL MIX IN RESULT ?Negative for Influenza virus, types A and B, Parainfluenza viruses 1,2 # 3, Adenovirus, and Respiratory Syncytial virus. Reference range: Negative Rapid Respiratory Viruses ? Not indicated Test Performed by [employer] [facility], [address] [place], [place] [id number] Adrián Balderas M.D., Ph.D., Director of Laboratories , CLIA [id number] SPECIMEN TYPE BWASH/BAL MIX IN VTM 1 TO 1 RATIO, FRZ NEG 70 07/31/2022 2:35 PM NATIONAL FACILITIES MANAGER [facility] 07/30/2022 3:30 PM NATIONAL FACILITIES MANAGER Patti Pineda MD MICROBIOLOGY - GENERAL ORDERABLES Final Result Performing Organization Address [facility] Co de Phone Number [facility] [address] [place] [address], [place] [phone] [facility] [address] , [place] [phone] * CULTURE HERPES (07/30/2022 3:30 PM NATIONAL FACILITIES MANAGER) HERPES SIMPLEX VIRUS CULTURE REPORT 08/03/2022 3:42 PM NATIONAL FACILITIES MANAGER [facility] ALFERN GARNETT Comment: Herpes Simplex Virus Culture SOURCE : BAL/BWASH MIX IN RESULT ?Not Isolated ?Reference Range: Not Isolated Test Performed by Javier Benítez, [employer] [facility], [address] [place] [address] Adrián Balderas M.D., Ph.D., Director of Laboratories , [facility] [id number] SPECIMEN TYPE BAL/BWASH MIX IN VTM 1 TO 1 RATIO, FRZ NEG 70 07/31/2022 2:32 PM NATIONAL FACILITIES MANAGER [facility] 07/30/2022 3:30 PM NATIONAL FACILITIES MANAGER Patti Pineda MD MICROBIOLOGY - GENERAL ORDERABLES Final Result Performing Organization Address [facility]/ZIP Co de Phone Number [facility] [address] [place] [address], [place] [phone] [phone] [facility] [address] , [place] [phone] * CULTURE CMV (07/30/2022 3:30 PM NATIONAL FACILITIES MANAGER) [facility] CYTOMEGALOVIRUS CULTURE REPORT 08/06/2022 5:37 PM NATIONAL FACILITIES MANAGER [facility] CHLOEKAYLEN TAMIR Comment: CMV Rapid Culture SOURCE : BAL RESULT ?Not Isolated ? Reference Range: Not Isolated Test Performed by Javier Benítez, [employer] [facility], [address] [place] [address] Adrián Balderas M.D., Ph.D., Director of Laboratories , CLIA [id number] SPECIMEN SOURCE BAL/BWASH MIX IN VTM 1 TO 1 RATIO, FRZ NEG 70 07/31/2022 2:31 PM NATIONAL FACILITIES MANAGER [facility] 07/30/2022 3:30 PM NATIONAL FACILITIES MANAGER [facility] ERartem Pineda MD MICROBIOLOGY - GENERAL ORDERABLES Final Result [facility] [address] [place] [address], [place] [phone] , [place] [phone] * CULTURE, QUANTITATIVE W/ GRAM STAIN (07/30/2022 3:30 PM NATIONAL FACILITIES MANAGER) [facility] SPEC DESCRIPTION SITE: BAL RLL 07/30/2022 5:04 PM NATIONAL FACILITIES MANAGER [facility] SPECIAL REQUESTS NO SPECIAL REQUEST 07/30/2022 5:04 PM NATIONAL FACILITIES MANAGER [facility] GRAM STAIN RESULT <10 NEUTROPHILS PER LPF 07/31/2022 4:41 AM NATIONAL FACILITIES MANAGER [facility] GRAM STAIN RESULT <10 EPITHELIAL CELLS PER LPF 07/31/2022 4:41 AM NATIONAL FACILITIES MANAGER [facility] GRAM STAIN RESULT RARE GRAM NEGATIVE RODS 07/31/2022 4:41 AM NATIONAL FACILITIES MANAGER [facility] CULTURE RESULT 500 CFU/ML YEAST , ID UPON REQUEST 08/02/2022 2:57 PM NATIONAL FACILITIES MANAGER [facility] SPECIMEN FROM UNSPECIFIED BODY SITE / Unknown 07/30/2022 3:30 PM NATIONAL FACILITIES MANAGER 07/30/2022 5:03 PM NATIONAL FACILITIES MANAGER Comment:BAL RLL Florencio Amaya MD MICROBIOLOGY - GENERAL ORDERABLE S Final Result [facility] [address] [place] [address], [phone] * CULTURE TB/AFB OTHER (07/30/2022 3:30 PM NATIONAL FACILITIES MANAGER) Pathologist [facility] [place] SOURCE (PAHRUMP) SITE 07/30/2022 5:03 PM NATIONAL FACILITIES MANAGER [facility] Comment:BRONCH WASH CULTURE RESULT SEE NOTE 3 01:04 AM 09/13/2022 1:04 AM NATIONAL FACILITIES MANAGER [facility] Comment: Test ?Result ?Flag ??Unit ??RefValue Mycobacterial Culture ? SOURCE: BRONCHIAL WASHING, SITE BRONCH WASH MYCOBACTERIAL CULTURE ?FINAL No growth after 42 days of incubation. Test Performed by: [address] [address] Retail Sales Lead: Brent Alcaraz M.D. Ph.D.; CLIA# [id number] 07/30/2022 3:30 PM NATIONAL FACILITIES MANAGER Florencio Amaya MD MICROBIOLOGY - GENERAL ORDERABLE S Final Result Performing Organization Address [facility] Co de Phone Number [place] [phone] [facility] [address] [place] [address], [id number] * SMEAR,FLUOR STAIN,ACID FAST (07/30/2022 3:30 PM NATIONAL FACILITIES MANAGER) Pathologist [facility] [place] ACID FAST SMEAR RESULT SEE NOTE 11:18 PM 08/01/2022 11:18 PM NATIONAL FACILITIES MANAGER [facility] Comment: Test ?Result ??Flag ??Unit ??RefValue Acid Fast Smear For Mycobacterium SOURCE: BRONCHIAL WASHING, BWASH/BAL MIX ACID FAST SMEAR FOR MYCOBACTERIUM ?FINAL Negative. Test Performed by: [place] [address] Retail Sales Lead: Brent Alcaraz M.D. Ph.D.; CLIA# [id number] 07/30/2022 3:30 PM NATIONAL FACILITIES MANAGER Florencio Amaya MD MICROBIOLOGY - GENERAL ORDERABLE S Final Result Performing Organization Address [facility]/ZIP Co de Phone Number [address] [address] * CULTURE RESPIRATORY W/ GRAM STAIN (07/30/2022 3:30 PM NATIONAL FACILITIES MANAGER) SPEC DESCRIPTION SITE: BRONCH WASH 07/30/2022 5:01 PM NATIONAL FACILITIES MANAGER [facility] SPECIAL REQUESTS NO SPECIAL REQUEST 07/30/2022 5:01 PM NATIONAL FACILITIES MANAGER [facility] GRAM STAIN RESULT MANY NEUTROPHILS SEEN 07/30/2022 8:16 PM NATIONAL FACILITIES MANAGER [facility] GRAM STAIN RESULT NO ORGANISMS SEEN 07/30/2022 8:16 PM NATIONAL FACILITIES MANAGER [facility] CULTURE RESULT FEW TETE ALBICANS 08/03/2022 12:28 PM NATIONAL FACILITIES MANAGER [facility] SPECIMEN FROM UNSPECIFIED BODY SITE / Unknown 07/30/2022 3:30 PM NATIONAL FACILITIES MANAGER 07/30/2022 5:00 PM NATIONAL FACILITIES MANAGER Comment:BRONCH WASH Florencio Amaya MD MICROBIOLOGY - GENERAL ORDERABLE S Final Result [facility] [address] [place] [address], [phone] * (ABNORMAL) CULTURE, FUNGUS (07/30/2022 3:30 PM NATIONAL FACILITIES MANAGER) SOURCE (PAHRUMP) SITE 07/30/2022 5:01 PM NATIONAL FACILITIES MANAGER [facility] Comment:BRONCH WASH CULTURE RESULT SEE NOTE 08:01 AM(A) 08/28/2022 8:01 AM NATIONAL FACILITIES MANAGER [facility] Comment: Test ?Result ?Flag ??Unit ??RefValue Fungal Culture, Routine ?A ? SOURCE: BRONCHIAL WASHING, SITE BRONCH WASH FUNGAL CULTURE, ROUTINE ?FINAL TETE ALBICANS ? Many NAKASEOMYCES (TETE) GLABRATA ??Few Test Performed by: [facility] [address] [place] [address] Retail Sales Lead: Brent Alcaraz M.D. Ph.D.; CLIA# [id number] 07/30/2022 3:30 PM NATIONAL FACILITIES MANAGER Florencio Amaya MD MICROBIOLOGY - GENERAL ORDERABLE S Final Result Performing Organization Address [facility] de Phone Number [facility] [address] [place] [address] [facility] [address] [place] [address], [id number] * Bronchoscopy (07/30/2022 2:41 PM NATIONAL FACILITIES MANAGER) Patti Pineda MD PROCEDURE/MINOR SURGIC AL ORDERABLES Final Result * Vancomycin Random Level (07/30/2022 6:17 AM NATIONAL FACILITIES MANAGER) VANCOMYCIN RANDOM 24.4 MCG/ML 07/30/2022 7:34 AM NATIONAL FACILITIES MANAGER [facility] Comment:REFERENCE RANGE NOT ESTABLISHED 07/30/2022 6:17 AM NATIONAL FACILITIES MANAGER Florencio Amaya MD LABORATORY Final Result Performing Organization Address [facility] de Phone Number [facility] [address] [place] [address], [place] [phone] * XR CHEST PORTABLE (07/30/2022 5:27 AM NATIONAL FACILITIES MANAGER) Anatomical Region Laterality Modality Chest Radiographic Jasmina ging 07/30/2022 8:33 AM NATIONAL FACILITIES MANAGER Impressions 07/30/2022 8:37 AM NATIONAL FACILITIES MANAGER IMPRESSION: 1) Interval decrease in small left pleural effusion and left basilar consolidation. No other significant change. Ordered By: RODNEY NOLASCO Interpreted By: Nigel Peña MD, 07/30/2022 8:33 AM Narrative 07/30/2022 8:37 AM NATIONAL FACILITIES MANAGER Examination: XR CHEST PORTABLE Exam time: 07/30/2022 [...] Benign calcified granuloma right midlung. Procedure Note Niegl Peña MD - 07/30/2022 Examination: XR CHEST [...] ult * CYTOLOGY GENERIC (07/30/2022 12:00 AM NATIONAL FACILITIES MANAGER) CYTOLOGY OTHER [facility] ? Department of Laboratory Medicine ?[address] ?[place] [address] ? , extension [phone] ? Pathology Report ? Non-gynecologic Cytology Report Name: JACQUELINE RAY E ? Specimen #: [id number] Age: 9 1955 (Age: 67) ? Location: [facility] Sex: M ?Procedure Date: 07/30/2022 Hospital #: [id number] ?Date Received: 07/31/2022 Date Reported: 08/01/2022 Provider: [...] case was interpreted and signed out at [facility], [address] [place] [address], [place], [place], [facility]. FINAL DIAGNOSIS: [...] Electronically Signed Out ? GADIEL HANSON MD [facility] 07/30/2022 07/31/2022 12:13 PM NATIONAL FACILITIES MANAGER Comment:LUNG, RIGHT LOWER LO BE, BRONCHOALVEOLAR LAVAGE us Anna Us MD PATHOLOGY/CYTOLOGY ORDERABL ES Final Result [facility] [address] [place] [address], [phone] * CYTOLOGY GENERIC (07/30/2022 12:00 AM NATIONAL FACILITIES MANAGER) CYTOLOGY OTHER [facility] ? Department of Laboratory Medicine ?[address] ?[place] [address] ? , extension [phone] ? Pathology Report ? Non-gynecologic Cytology Report Name: RAY PHILLIPS ? Specimen #: [id number] Age: 9 1955 (Age: 67) ? Location: [facility] Sex: M ?Procedure Date: 07/30/2022 Hospital #: [id number] ?Date Received: 07/31/2022 Date Reported: 08/01/2022 Provider: [...] case was interpreted and signed out at [facility], [address] [place] [address], [place], [place], [address]. FINAL DIAGNOSIS: LUNG, GENERAL AIRWAYS, BRONCHIAL WASHING: ? - SATISFACTORY FOR EVALUATION. ? - NEGATIVE FOR MALIGNANT CELLS. ? - ACUTE INFLAMMATION AND SCATTERED EPITHELIAL CELLS. ? - GMS STAIN DEMONSTRATES RARE FUNGAL HYPHAE OF UNCERTAIN SIGNIFICANCE. Electronically Signed Out ? GADIEL HANSON MD [facility] 07/30/2022 07/31/2022 12: 18 PM NATIONAL FACILITIES MANAGER Comment:LUNG, GENERAL AIRWAY S, BRONCHIAL WASHING us Anna Us MD PATHOLOGY/CYTOLOGY ORDERABL ES Final Result [facility] [address] [place] [address], [id number] * (ABNORMAL) CULTURE, FUNGUS (07/28/2022 2:25 PM NATIONAL FACILITIES MANAGER) SOURCE (PAHRUMP) SPUTUM 07/31/2022 1:36 PM NATIONAL FACILITIES MANAGER [facility] CULTURE RESULT SEE NOTE 08/28/2022 08:14 AM(A) 08/28/2022 8:14 AM NATIONAL FACILITIES MANAGER [facility] Comment: Test ?Result ?Flag ??Unit ??RefValue Fungal Culture, Routine ?A ? SOURCE: SPUTUM Fungal specimen plated for culture, volume inadequate for optimal recovery. FUNGAL CULTURE, ROUTINE ?FINAL TETE ALBICANS ??Many Test Performed by: [place] [address] Retail Sales Lead: Brent Alcaraz M.D. Ph.D.; CLIA# [id number] SPUTUM / Unknown 07/28/2022 2:25 PM NATIONAL FACILITIES MANAGER us Tracy Yo MD MICROBIOLOGY - GENERA L ORDERABLES Edited Result - Final [address] [address] [facility] [address] [place] [address], [place] [phone] * CULTURE RESPIRATORY W/ GRAM STAIN (07/28/2022 2:25 PM NATIONAL FACILITIES MANAGER) SPEC DESCRIPTION SPUTUM, EXPECTORATED 07/28/2022 2:25 PM NATIONAL FACILITIES MANAGER [facility] SPECIAL REQUESTS NO SPECIAL REQUEST 07/28/2022 2:25 PM NATIONAL FACILITIES MANAGER [facility] GRAM STAIN RESULT >25 NEUTROPHILS PER LPF 07/28/2022 10:41 PM NATIONAL FACILITIES MANAGER [facility] GRAM STAIN RESULT <10 EPITHELIAL CELLS PER LPF 07/28/2022 10:41 PM NATIONAL FACILITIES MANAGER [facility] GRAM STAIN RESULT RARE BUDDING YEAST CELLS 07/28/2022 10:41 PM NATIONAL FACILITIES MANAGER [facility] GRAM STAIN RESULT RARE GRAM POSITIVE COCCI IN PAIRS 07/28/2022 10:41 PM NATIONAL FACILITIES MANAGER [facility] GRAM STAIN RESULT RARE GRAM NEGATIVE RODS 07/28/2022 10:41 PM NATIONAL FACILITIES MANAGER [facility] CULTURE RESULT FEW ALPHA STREPTOCOCCUS 07/29/2022 2:57 PM NATIONAL FACILITIES MANAGER [facility] CULTURE RESULT MODERATE PRESUMPTIVE TETE ALBICANS 07/29/2022 2:57 PM NATIONAL FACILITIES MANAGER [facility] SPUTUM SPECIMEN / Unknown 07/28/2022 2:25 PM NATIONAL FACILITIES MANAGER 07/28/2022 3:24 PM NATIONAL FACILITIES MANAGER Tracy Yo MD MICROBIOLOGY - GENERA L ORDERABLES Final Result [facility] [address] [place] [address], [phone] * [place] ABD LIMITED (07/28/2022 11:39 AM NATIONAL FACILITIES MANAGER) Anatomical Region Laterality Modality Abdomen Ultrasound 07/29/2022 6:03 AM NATIONAL FACILITIES MANAGER Impressions 07/29/2022 6:06 AM NATIONAL FACILITIES MANAGER IMPRESSION: 1. ??3 cysts in the spleen with the largest 2.1 cm. ??The smallest of the 3 cyst demonstrates thin internal septation but appears benign. ??No follow-up imaging is recommended. 2. ??Splenomegaly. Referred By: PROVIDER NON-STAFF Interpreted By: Karine Sher MD, 07/29/2022 6:03 AM Narrative 07/29/2022 6:06 AM NATIONAL FACILITIES MANAGER EXAM: Ultrasound abdomen limited spleen. Multiple transabdominal [...] (ABNORMAL) CBC W/DIFF AUTOMATED (07/28/2022 7:03 AM NATIONAL FACILITIES MANAGER) WBC 13.5(H) 4.0 - 10.8 x10'3/uL 07/28/2022 7:39 AM [facility] RBC 2.51(L) 4.50 - 6.10 x10'6/uL 07/28/2022 7:39 AM [facility] HGB 8.3(L) 13.0 - 18.0 G/DL 07/28/2022 7:39 AM [facility] HCT 25.1(L) 37.0 - 52.0 % 07/28/2022 7:39 AM [facility] MCV 100.0 78.0 - 100.0 FL 07/28/2022 7:39 AM [facility] MCH 33.1(H) 27.0 - 31.0 PG 07/28/2022 7:39 AM [facility] MCHC 33.1 33.0 - 36.0 G/DL 07/28/2022 7:39 AM [facility] RDW 14.7(H) 11.5 - 14.5 % 07/28/2022 7:39 AM [facility] PLT 303 150 - 350 x10'3/uL 07/28/2022 7:39 AM [facility] MPV 10.1 7.4 - 10.4 FL 07/28/2022 7:39 AM [facility] ABS. NEUTROPHILS 11.61(H) 1.60 - 8.30 x10'3/uL 07/28/2022 8:06 AM [facility] ABS. NEUTROPHILS CALCULATED 11.07(H) 1.60 - 7.30 x10'3/uL 07/28/2022 8:06 AM [facility] BANDS 0.27 0.00 - 1.00 x10'3/uL 07/28/2022 8:06 AM [facility] ABS. LYMPHOCYTES 1.08 0.80 - 4.70 x10'3/uL 07/28/2022 8:06 AM [facility] ABS. MONOCYTES 0.81 0.00 - 1.50 x10'3/uL 07/28/2022 8:06 AM [facility] ABS. EOSINOPHILS 0.00 0.00 - 0.40 x10'3/uL 07/28/2022 8:06 AM [facility] ABS. BASOPHILS 0.00 0.00 - 0.20 x10'3/uL 07/28/2022 8:06 AM [facility] ABS. METAMYELOCYTES 0.27(H) 0.00 x10'3/uL 07/28/2022 8:06 AM [facility] ABS. NUCLEATED RBC'S 0.00 0.0 x10'3/uL 07/28/2022 8:06 AM [facility] RBC MORPHOLOGY POLYCHROMASIA 022 8:06 AM [facility] Comment:SLIGHT PLT MORPH. NORMAL 07/28/2022 8:06 AM [facility] 07/28/2022 7:03 AM NATIONAL FACILITIES MANAGER Florencio Amaya MD LABORATORY Final Result [facility] [address] [place] [address], [phone] * (ABNORMAL) BASIC METABOLIC PANEL (07/28/2022 7:03 AM NATIONAL FACILITIES MANAGER) SODIUM S/P/B 137 136 - 145 MMOL/L 07/28/2022 7:50 AM [facility] POTASSIUM S/P/B 4.0 3.5 - 5.1 MMOL/L 07/28/2022 7:50 AM [facility] CHLORIDE S/P/B 105 98 - 107 MMOL/L 07/28/2022 7:50 AM [facility] CO2 28.7 21.0 - 32.0 MMOL/L 07/28/2022 7:50 AM [facility] GLUCOSE 98 74 - 106 MG/DL 07/28/2022 7:50 AM NATIONAL FACILITIES MANAGER [facility] BUN 19(H) 7 - 18 MG/DL 07/28/2022 7:50 AM NATIONAL FACILITIES MANAGER [facility] CREATININE S/P/B 0.73 0.70 - 1.30 MG/DL 07/28/2022 7:50 AM [facility] CALCIUM S/P/B 7.9(L) 8.5 - 10.1 MG/DL 07/28/2022 7:50 AM NATIONAL FACILITIES MANAGER [facility] ANION GAP 3.3(L) 5.0 - 15.0 MMOL/L 07/28/2022 7:50 AM NATIONAL FACILITIES MANAGER [facility] OSMOLALITY (CALC) 286 MOSM/KG 022 7:50 AM [facility] Comment:REFERENCE RANGE NOT ESTABLISHED GFR ESTIMATE >90 >90 ML/MIN/1. 73 M2 07/28/2022 7:50 AM NATIONAL FACILITIES MANAGER [facility] GFR NOTES GFR REFERENCE S: 07/28/2022 7:50 AM [facility] Comment: THE ESTIMATED GFR IS [...] FAILURE: <15 ml/min/1.73 m2 07/28/2022 7:03 AM NATIONAL FACILITIES MANAGER Florencio Amaya MD LABORATORY Final Result [facility] [address] [place] [address], [id number] * Vancomycin Random Level (07/28/2022 7:03 AM NATIONAL FACILITIES MANAGER) VANCOMYCIN RANDOM 7.0 MCG/ML 07/28/2022 7:52 AM NATIONAL FACILITIES MANAGER [facility] Comment:REFERENCE RANGE NOT ESTABLISHED 07/28/2022 7:03 AM NATIONAL FACILITIES MANAGER Tracy Yo MD LABORATORY Final Result [facility] [address] [place] [address], [place] [phone] [id number] * XR CHEST PORTABLE (07/28/2022 12:43 AM NATIONAL FACILITIES MANAGER) Anatomical Region Laterality Modality Chest Radiographic Jasmina ging 07/28/2022 1:18 AM NATIONAL FACILITIES MANAGER Impressions 07/28/2022 1:26 AM NATIONAL FACILITIES MANAGER IMPRESSION: 1. ??Right basilar pigtail catheter remains [...] 07/28/2022 1:18 AM Narrative 07/28/2022 1:26 AM NATIONAL FACILITIES MANAGER EXAMINATION: XR CHEST PORTABLE HISTORY:chest tube COMPARISON: [...] * XR CHEST PORTABLE (07/27/2022 4:22 PM NATIONAL FACILITIES MANAGER) Anatomical Region Laterality Modality Chest Radiographic Jasmina ging 07/27/2022 4:42 PM NATIONAL FACILITIES MANAGER Impressions 07/27/2022 4:44 PM NATIONAL FACILITIES MANAGER IMPRESSION: 1. Right-sided pigtail chest tube. 2. Bilateral pulmonary opacities. 3. Cardiomegaly. Pulmonary vascular congestion. Ordered By: RODNEY NOLASCO Interpreted By: Can Klein DO, 07/27/2022 4:42 PM Narrative 07/27/2022 4:44 PM NATIONAL FACILITIES MANAGER EXAMINATION: XR CHEST PORTABLE HISTORY: Chest tube [...] 3. Cardiomegaly. Pulmonary vascular congestion. Ordered By: RODENY NOLASCO Interpreted By: Can Klein DO, 07/27/2022 4:42 PM us Rodney Nolasco MD GENERAL IMAGING Final Res ult * USE ECHOCARDIOGRAM (07/27/2022 1:13 PM NATIONAL FACILITIES MANAGER) Anatomical Region Laterality Modality Cardiac Echocardiogram 07/27/2022 12:4 4 PM NATIONAL FACILITIES MANAGER Narrative 07/28/2022 6:32 AM NATIONAL FACILITIES MANAGER ?Echocardiography Report Pat.Name: ??RAY PHILLIPS ? Pat.ID: ?[id number] ? St.Date: ?? 07/27/2022 ? Refer.MD: ??[id number] NON-STAFF PROVIDER ?EWDPROV ?EWDPROV Exam Time: 12:44:00 PM ? Study Type:ECHO WITH CARDIAC DOPPLER COMP Height: ?165 cm ?Weight: ?68 kg ? BSA: ? 1.75 m2 ?Age: ??1955,67Y ? Sex: ? M ? BP: ?138/68 ? HR: ?70 bpm ?Sonogrphr: Avery Marie RDCS ? Pat. Stat.:Inpatient ? Room: ?742 ? CPT - 4: ?24459 ? Reason for Study:Pericardial effusion Procedures: 2D, [...] ?? Value ?229 g ? LV Mass [id number] ?? Value ?131 g/m2 ? Right Ventricle [...] Echocardiography Report Pat.Name: JACQUELINE RAY Noelle Pat.ID: [id number] .Date: 07/27/2022 Refer.MD: [id number] NON-STAFF PROVIDER EWDPROV EWDPROV Exam Time: 12:44:00 PM Study Type:ECHO WITH CARDIAC DOPPLER COMP Height: 165 cm Weight: 68 kg BSA: 1.75 m2 Age: 9 1955,67Y Sex: M BP: 138/68 HR: 70 bpm Sonogrphr: Avery Marie CJ Pat. Stat.:Inpatient Room: 742 CPT - 4: 67167 Reason for Study:Pericardial effusion Procedures: 2D, M-mode, [...] Mass 2D Value 229 g LV Mass Edcum8E Value 131 g/m2 Right Ventricle Right Ventricle [...] MIDLINE PLACEMENT GREATER 3YR (07/27/2022 11:20 AM NATIONAL FACILITIES MANAGER) Anatomical Region Laterality Modality Chest Interventional R adiology 07/27/2022 11:1 5 AM NATIONAL FACILITIES MANAGER Impressions 07/27/2022 11:23 AM NATIONAL FACILITIES MANAGER Impression: Successful image guided left basilic vein inserted midline line venous catheter. Plan: 1. ??Left midline venous catheter okay for immediate use. 2. ??IR follow-up as needed. Thank you for allowing [facility] to assist in this patient's care! Ordered By: TRACY YO Interpreted By: Reji Cantrell MD, 07/27/2022 11:15 AM Narrative 07/27/2022 11:23 AM NATIONAL FACILITIES MANAGER IR MIDLINE VENOUS CATHETER PLACEMENT Pre op diagnosis: . IV access required. Midline requested. Post Op Diagnosis: same Procedure: Midline venous catheter placement. Grafts/Implants: 4 Nicaraguan midline venous catheter Interventional Radiologist: Óscar Mechanical Engineering Officer: ANSON Keating tech Anesthesia: Local - 1% [...] centrally. Peel-away sheath was placed. A 4 Nicaraguan single lumen midline, 20 cm. This was [...] Procedure: Midline venous catheter placement. Grafts/Implants: 4 Nicaraguan midline venous catheter Interventional Radiologist: Óscar Mechanical Engineering Officer: ANSON Keating tech Anesthesia: Local - 1% [...] advancedcentrally. Peel-away sheath was placed. A 4 Nicaraguan single lumen midline,20 cm. This was advanced [...] CHEST TUBE INSERT RT (07/27/2022 10:57 AM NATIONAL FACILITIES MANAGER) Anatomical Region Laterality Modality Chest Computed Tomogra phy 07/27/2022 12:0 5 PM NATIONAL FACILITIES MANAGER Impressions 07/27/2022 12:13 PM NATIONAL FACILITIES MANAGER IMPRESSION: Successful CT-guided right thoracostomy tube placement as described. The stopcock will initially be left in the closed position for fibrinolytic 4 hour dwell time. The tube will then be placed to low wall suction. Output and serial radiographs will be monitored to determine further management. Ordered By: FLORENCIO AMAYA Interpreted By: Raul Osuna MD, 07/27/2022 12:05 PM Narrative 07/27/2022 12:13 PM NATIONAL FACILITIES MANAGER PROCEDURE: CT-guided right thoracostomy tube placement Indication: Necrotizing pneumonia with loculated hydropneumothorax Physicians: Raul Osuna M.D. (attending); Rodney Nolasco M.D. (resident) Following informed consent, including discussion of procedural risks, the patient was place in the left lateral decubitus position on the CT table and Marcell protocol was observed to verify correct patient, [...] CT. The tract was dilated to 12 Nicaraguan. During dilation, there was temporary retraction of the wire resulting in slight kinking and difficulty advancing the tube. Access was again regained using the one-step sheath needle, followed again by CT confirmation of position, wire placement, and tract dilation. A 12-Nicaraguan pigtail drainage catheter with the locking stitch [...] lateral decubitus position on the CT tableand Marcell protocol was observed to verify correct patient, [...] by CT. The tractwas dilated to 12 Nicaraguan. During dilation, there was temporary retractionof the wire resulting in slight kinking and difficulty advancing the tube.Access was again regained using the one-step sheath needle, followed againby CT confirmation of position, wire placement, and tract dilation. B37-Lltctm pigtail drainage catheter with the locking stitch [...] Result * CULTURE, ANAEROBIC (07/27/2022 10:30 AM NATIONAL FACILITIES MANAGER) SPEC DESCRIPTION SITE: RT PLEURAL FLUID 07/27/2022 12:59 PM NATIONAL FACILITIES MANAGER [facility] SPECIAL REQUESTS NO SPECIAL REQUEST 07/27/2022 12:59 PM NATIONAL FACILITIES MANAGER [facility] CULTURE RESULT FEW MICROAEROPHILIC STREPTOCOCCUS 07/30/2022 5:41 PM NATIONAL FACILITIES MANAGER [facility] SPECIMEN FROM UNSPECIFIED BODY SITE / Unknown 07/27/2022 10:30 AM NATIONAL FACILITIES MANAGER 07/27/2022 12:08 PM NATIONAL FACILITIES MANAGER Comment:RT PLEURAL FLUID Narrative Organism Antibiotic Method Susceptibility Microaerophilic streptococcus CEFOTAXIME ARLEN (ETEST) 0.023: Sensitive Microaerophilic streptococcus PENICILLIN G ARLEN (ETEST) 0.008: Sensitive Florencio Amaya MD MICROBIOLOGY - GENERAL ORDERABLE S Final Result [facility] [address] [place] [address], [id number] * CULTURE, BODY FLUID W/ GRAM STAIN (07/27/2022 10:30 AM NATIONAL FACILITIES MANAGER) SPEC DESCRIPTION PLEURAL FLUID: RT 07/27/2022 12:09 PM NATIONAL FACILITIES MANAGER [facility] SPECIAL REQUESTS NO SPECIAL REQUEST 07/27/2022 12:09 PM NATIONAL FACILITIES MANAGER [facility] GRAM STAIN RESULT MANY NEUTROPHILS SEEN 07/27/2022 4:31 PM NATIONAL FACILITIES MANAGER [facility] GRAM STAIN RESULT NO ORGANISMS SEEN 07/27/2022 4:31 PM NATIONAL FACILITIES MANAGER [facility] CULTURE RESULT RARE STAPHYLOCOCCUS EPIDERMIDIS 07/31/2022 7:51 AM NATIONAL FACILITIES MANAGER [facility] PLEURAL FLUID SPECIMEN / Unknown 07/27/2022 10:30 AM NATIONAL FACILITIES MANAGER 07/27/2022 12:08 PM NATIONAL FACILITIES MANAGER Comment:RT Narrative Organism Antibiotic Method Susceptibility Staphylococcus [...] ORDERABLE S Final Result Performing Organization Address [facility]/ZIP Co de Phone Number [facility] [address] [place] [address], [place] [phone] * PROTEIN TOTAL FLUID (07/27/2022 10:30 AM NATIONAL FACILITIES MANAGER) PROTEIN (FLUID) 3.5 G/DL 3:22 PM NATIONAL FACILITIES MANAGER [facility] Comment:REFERENCE RANGE NOT ESTABLISHED FOR THIS BODY FLUID. SOURCE (FLUID) PLEURAL FLUID 07/27/2022 10:53 AM NATIONAL FACILITIES MANAGER [facility] PLEURAL FLUID SPECIMEN / Unknown 07/27/2022 10:30 AM NATIONAL FACILITIES MANAGER Tracy Yo MD BODY FLUIDS AND STOOL S ORDERABLES Final Result Performing Organization Address [facility] Co de Phone Number [facility] [address] [place] [address], [place] [phone] * CELL COUNT W/ DIFF BODY FLUID (07/27/2022 10:30 AM NATIONAL FACILITIES MANAGER) Pathologist [facility] [place] SOURCE (FLUID) PLEURAL FLUID 022 3:08 PM NATIONAL FACILITIES MANAGER [facility] WBC (FLUID) 144.450 x10'3/uL 07/27/2022 3:08 PM NATIONAL FACILITIES MANAGER [facility] Comment:REFERENCE RANGE NOT ESTABLISHED RBC (FLUID) 0.090 x10'6/uL 07/27/2022 3:08 PM NATIONAL FACILITIES MANAGER [facility] Comment:REFERENCE RANGE NOT ESTABLISHED DIFFERENTIAL MANUAL DIFFERENTIAL PERFORMED ON CONCENTRATED CYTOSPIN 07/27/2022 10:53 AM [facility] CELLS COUNTED 100 No COUNTED 07/27/2022 3:45 PM NATIONAL FACILITIES MANAGER [facility] SEGS (FLUID) 97 % 07/27/2022 3:45 PM [facility] LYMPHS (FLUID) 3 % 07/27/2022 3:45 PM NATIONAL FACILITIES MANAGER [facility] PLEURAL FLUID SPECIMEN / Unknown 07/27/2022 10:30 AM NATIONAL FACILITIES MANAGER us Tracy Yo MD BODY FLUIDS AND STOOL S ORDERABLES Final Result Performing Organization Address [facility] de Phone Number [facility] [address] [place] [address], [place] [phone] * LDH BODY FLUID (07/27/2022 10:30 AM NATIONAL FACILITIES MANAGER) LDH (FLUID) >4,000 UNITS/L 07/27/2022 3:22 PM NATIONAL FACILITIES MANAGER [facility] Comment:REFERENCE RANGE NOT ESTABLISHED FOR THIS BODY FLUID. SOURCE (FLUID) PLEURAL FLUID 07/27/2022 10:53 AM NATIONAL FACILITIES MANAGER [facility] PLEURAL FLUID SPECIMEN / Unknown 07/27/2022 10:30 AM NATIONAL FACILITIES MANAGER us Tracy Yo MD BODY FLUIDS AND STOOL S ORDERABLES Final Result Performing Organization Address [facility] de Phone Number [facility] [address] [place] [address], [place] [phone] * TRANSFUSE RED BLOOD CELLS (07/27/2022 7:04 AM NATIONAL FACILITIES MANAGER) us Florencio Amaya MD NURSING TREATMENT ORDERABLES - B LOOD ADMIN Final Result * TRANSFUSE RED BLOOD CELLS, 1 Units (07/27/2022 7:04 AM NATIONAL FACILITIES MANAGER) us Florencio Amaya MD NURSING TREATMENT ORDERABLES - B LOOD ADMIN Final Result * (ABNORMAL) BMP WITHOUT GLUCOSE (07/27/2022 2:40 AM NATIONAL FACILITIES MANAGER) SODIUM S/P/B 138 136 - 145 MMOL/L 07/27/2022 3:30 AM NATIONAL FACILITIES MANAGER [facility] POTASSIUM S/P/B 3.7 3.5 - 5.1 MMOL/L 07/27/2022 3:30 AM NATIONAL FACILITIES MANAGER [facility] CHLORIDE S/P/B 106 98 - 107 MMOL/L 07/27/2022 3:30 AM [facility] CO2 26.0 21.0 - 32.0 MMOL/L 07/27/2022 3:30 AM [facility] BUN 22(H) 7 - 18 MG/DL 07/27/2022 3:30 AM [facility] CREATININE S/P/B 0.91 0.70 - 1.30 MG/DL 07/27/2022 3:30 AM [facility] CALCIUM S/P/B 8.2(L) 8.5 - 10.1 MG/DL 07/27/2022 3:30 AM [facility] ANION GAP 6.0 5.0 - 15.0 MMOL/L 07/27/2022 3:30 AM [facility] GFR ESTIMATE >90 >90 ML/MIN/1. 73 M2 07/27/2022 3:30 AM [facility] GFR NOTES GFR REFERENCE S: 07/27/2022 3:30 AM [facility] Comment: THE ESTIMATED GFR IS [...] FAILURE: <15 ml/min/1.73 m2 07/27/2022 2:40 AM NATIONAL FACILITIES MANAGER Florencio Amaya MD LABORATORY Final Result [facility] [address] [place] [address], [phone] * (ABNORMAL) CBC W/DIFF AUTOMATED (07/27/2022 2:40 AM NATIONAL FACILITIES MANAGER) [facility] WBC 21.3(H) 4.0 - 10.8 x10'3/uL 07/27/2022 3:07 AM [facility] RBC 1.98(L) 4.50 - 6.10 x10'6/uL 07/27/2022 3:07 AM [facility] HGB 6.5(LL) 13.0 - 18.0 G/DL 07/27/2022 3:07 AM [facility] Comment: CRITICAL RESULT, SPECIMEN DATE, TIME WERE READ BACK BY ALANNAH LINCOLN @0307 07.27.22 BY JOSÉ MIGUEL HCT 20.2(L) 37.0 - 52.0 % 07/27/2022 3:07 AM [facility] MCV 102.0(H) 78.0 - 100.0 FL 07/27/2022 3:07 AM [facility] MCH 32.8(H) 27.0 - 31.0 PG 07/27/2022 3:07 AM [facility] MCHC 32.2(L) 33.0 - 36.0 G/DL 07/27/2022 3:07 AM [facility] RDW 14.2 11.5 - 14.5 % 07/27/2022 3:07 AM [facility] PLT 347 150 - 350 x10'3/uL 07/27/2022 3:07 AM [facility] MPV 10.4 7.4 - 10.4 FL 07/27/2022 3:07 AM [facility] ABS. NEUTROPHILS 20.24(H) 1.60 - 8.30 x10'3/uL 07/27/2022 3:25 AM [facility] ABS. NEUTROPHILS CALCULATED 19.17(H) 1.60 - 7.30 x10'3/uL 07/27/2022 3:25 AM NATIONAL FACILITIES MANAGER [facility] ABS. LYMPHOCYTES 0.85 0.80 - 4.70 x10'3/uL 07/27/2022 3:25 AM NATIONAL FACILITIES MANAGER [facility] ABS. MONOCYTES 0.21 0.00 - 1.50 x10'3/uL 07/27/2022 3:25 AM NATIONAL FACILITIES MANAGER [facility] ABS. EOSINOPHILS 0.00 0.00 - 0.40 x10'3/uL 07/27/2022 3:25 AM NATIONAL FACILITIES MANAGER [facility] ABS. BASOPHILS 0.00 0.00 - 0.20 x10'3/uL 07/27/2022 3:25 AM NATIONAL FACILITIES MANAGER [facility] ABS. METAMYELOCYTES 0.64(H) 0.00 x10'3/uL 07/27/2022 3:25 AM NATIONAL FACILITIES MANAGER [facility] ABS. MYELOCYTES 0.21(H) 0.00 x10'3/uL 07/27/2022 3:25 AM NATIONAL FACILITIES MANAGER [facility] ABS. PROMYELOCYTES 0.21(H) 0.00 x10'3/uL 07/27/2022 3:25 AM [facility] ABS. NUCLEATED RBC'S 0.00 0.0 x10'3/uL 07/27/2022 3:25 AM [facility] RBC MORPHOLOGY POLYCHROMASIA 022 3:25 AM NATIONAL FACILITIES MANAGER [facility] Comment: SLIGHT ANISOCYTOSIS SLIGHT MACROCYTOSIS SLIGHT PLT MORPH. NORMAL 07/27/2022 3:25 AM [facility] 07/27/2022 2:40 AM NATIONAL FACILITIES MANAGER Florencio Amaya MD LABORATORY Final Result [facility] [address] [place] [address], [phone] * (ABNORMAL) PROCALCITONIN (PCT) (07/26/2022 12:55 PM NATIONAL FACILITIES MANAGER) Procalcitonin 1.83(H) <0.50 NG/ML 07/27/2022 9:06 AM NATIONAL FACILITIES MANAGER [facility] 07/26/2022 12:5 5 PM NATIONAL FACILITIES MANAGER Patel Kelsey MD LABORATORY Final Result [facility] [address] [place] [address], [phone] * BLASTOMYCES AB PANEL, (CF, ID) (07/26/2022 12:55 PM NATIONAL FACILITIES MANAGER) BLASTOMYCES AB FIXATION <1:8 <1:8 08/02/2022 5:09 PM NATIONAL FACILITIES MANAGER [facility] Comment: Interpretive Criteria: ? <1:8 [...] analytical performance characteristics have been determined by [employer] [place], [place]. It has not been cleared or approved by the U.S. Food and Drug Administration. This assay has been validated pursuant to the CLIA regulations and is used for clinical purposes. BLASTO IMMUNODIFFUSION Negative Negative 08/02/2022 5:09 PM NATIONAL FACILITIES MANAGER [facility] Comment: ?Interpretive Criteria: ?? Negative: Antibody not detected ?? Positive: Antibody detected A positive result is diagnostic of active or recent blastomycosis and is found in approximately 80% of proven cases of blastomycosis. Test Performed by [facility], [place], [address] [place], [place] Adrián Balderas M.D., Ph.D., Director of Laboratories , CLIA [id number] 07/26/2022 12:5 5 PM NATIONAL FACILITIES MANAGER Sergio Raza MD LABORATORY Final Result [facility] [address] [place], [place] , * HISTOPLASMA ANTIBODY PANEL (CF,IM) (07/26/2022 12:55 PM NATIONAL FACILITIES MANAGER) HISTOPLASMA YEAST AB <1:8 <1:8 08/02/2022 5:09 PM NATIONAL FACILITIES MANAGER [facility] HISTOPLASMA MYCELIAL AB <1:8 <1:8 08/02/2022 5:09 PM NATIONAL FACILITIES MANAGER [facility] Comment: Interpretive Criteria: ? <1:8 - [...] analytical performance characteristics have been determined by [employer], [place]. It has not been cleared or approved by the FDA. This assay has been validated pursuant to the CLIA regulations and is used for clinical purposes. HISTOPLASMA CAPSULATUM H AB Negative Negative 08/02/2022 5:09 PM NATIONAL FACILITIES MANAGER [facility] Comment: This immunodiffusion assay is [...] the diagnosis of histoplasmosis. Test Performed by [facility], [facility], [address] [place] [address] Adirán Balderas M.D., Ph.D., Director of Laboratories , [place] [id number] HISTOPLASMA CAPSULATUM M AB Negative Negative 08/02/2022 5:09 PM NATIONAL FACILITIES MANAGER [facility] 07/26/2022 12:5 5 PM NATIONAL FACILITIES MANAGER Sergio Raza MD LABORATORY Final Result Performing Organization Address City/[facility]/ZIP Co de Phone Number [facility] [address] , [place] [phone] * (ABNORMAL) HEMOGLOBIN AND HEMATOCRIT (07/26/2022 12:55 PM NATIONAL FACILITIES MANAGER) HGB 7.1(L) 13.0 - 18.0 G/DL 07/26/2022 1:14 PM NATIONAL FACILITIES MANAGER [facility] HCT 21.5(L) 37.0 - 52.0 % 07/26/2022 1:14 PM NATIONAL FACILITIES MANAGER [facility] 07/26/2022 12:5 5 PM NATIONAL FACILITIES MANAGER Tracy Yo MD LABORATORY Final Result [facility] [address] [place] [address], [place] [phone] * BLOOD SMEAR INTERPRETATION BY (07/26/2022 9:04 AM NATIONAL FACILITIES MANAGER) CBC PATHOLOGIST COMMENT DUPLICATE. SAME TEST ORDERED BY DIFFERENT DOCTORS. 07/26/2022 11:20 AM NATIONAL FACILITIES MANAGER [facility] Comment: CORRECTED ON 07/26 AT 1120: Previously reported as SENT TO PATHOLOGIST FOR REVIEW 07/26/2022 9:04 AM NATIONAL FACILITIES MANAGER us Florencio Amaya MD LABORATORY Edited Result - Final Performing Organization Address [facility] de Phone Number [facility] [address] [place] [address], [phone] * (ABNORMAL) HAPTOGLOBIN, QUANT (07/26/2022 9:04 AM NATIONAL FACILITIES MANAGER) HAPTOGLOBIN 412.0(H) 30.0 - 200.0 MG/DL 07/26/2022 9:55 AM NATIONAL FACILITIES MANAGER [facility] 07/26/2022 9:04 AM NATIONAL FACILITIES MANAGER us Florencio Amaya MD LABORATORY Final Result Performing Organization Address [facility] de Phone Number [facility] [address] [place] [address], [place] [phone] * XR CHEST PORTABLE (07/26/2022 6:55 AM NATIONAL FACILITIES MANAGER) Anatomical Region Laterality Modality Chest Radiographic Jasmina ging 07/26/2022 7:27 AM NATIONAL FACILITIES MANAGER Impressions 07/26/2022 7:29 AM NATIONAL FACILITIES MANAGER IMPRESSION: Loculated effusion on the right. ??Bilateral pulmonary opacifications due to atelectasis or infiltrate greatest in the right lower lung and throughout the left lung. Left effusion. Referred By: PROVIDER NON-STAFF Interpreted By: Rudy Montaño MD, 07/26/2022 7:27 AM Narrative 07/26/2022 7:29 AM NATIONAL FACILITIES MANAGER Procedure(s): XR CHEST PORTABLE Date of service: [...] * (ABNORMAL) C-REACTIVE PROTEIN (07/26/2022 2:38 AM NATIONAL FACILITIES MANAGER) C-REACTIVE PROTEIN 12.30(H) <0.80 mg/dL 07/26/2022 3:37 AM NATIONAL FACILITIES MANAGER [facility] 07/26/2022 2:38 AM NATIONAL FACILITIES MANAGER Tracy Yo MD LABORATORY Final Result [facility] [address] [place] [address], [place] [phone] * (ABNORMAL) SED RATE, ERYTHROCYTE (ESR,WSR) (07/26/2022 2:38 AM NATIONAL FACILITIES MANAGER) Pathologist [facility] [place] ESR 45(H) 0 - 15 MM/HR 07/26/2022 3:27 AM NATIONAL FACILITIES MANAGER [facility] 07/26/2022 2:38 AM NATIONAL FACILITIES MANAGER Tracy Yo MD LABORATORY Final Result [facility] [address] [place] [address], [phone] * (ABNORMAL) ARTERIAL BLOOD GAS (07/26/2022 2:38 AM NATIONAL FACILITIES MANAGER) Pathologist [facility] [place] PH ARTERIAL 7.43 7.35 - 7.45 07/26/2022 3:01 AM [facility] PCO2 37.3 35.0 - 45.0 MMHG 07/26/2022 3:01 AM [facility] PO2 71.8(L) 83.0 - 108.0 MMHG 07/26/2022 3:01 AM [facility] BICARB ARTERIAL 24.1 22 - 26 MMOL/L 07/26/2022 3:01 AM [facility] TCO2 25.3 23 - 27 MMOL/L 07/26/2022 3:01 AM [facility] BE/BASE EXCESS 0.4 0 - 2 MMOL/L 07/26/2022 3:01 AM [facility] O2 Saturation 93(L) 95 - 98 % 07/26/2022 3:01 AM [facility] 07/26/2022 2:38 AM NATIONAL FACILITIES MANAGER Ann Hammond NP LABORATORY Final Result [facility] [address] [place] [address], [phone] * (ABNORMAL) CBC W/DIFF AUTOMATED (07/26/2022 2:38 AM NATIONAL FACILITIES MANAGER) [facility] WBC 17.5(H) 4.0 - 10.8 x10'3/uL 07/26/2022 3:40 AM NATIONAL FACILITIES MANAGER [facility] RBC 2.26(L) 4.50 - 6.10 x10'6/uL 07/26/2022 3:40 AM [facility] HGB 7.6(L) 13.0 - 18.0 G/DL 07/26/2022 3:40 AM [facility] HCT 22.9(L) 37.0 - 52.0 % 07/26/2022 3:40 AM [facility] MCV 101.3(H) 78.0 - 100.0 FL 07/26/2022 3:40 AM NATIONAL FACILITIES MANAGER [facility] MCH 33.6(H) 27.0 - 31.0 PG 07/26/2022 3:40 AM NATIONAL FACILITIES MANAGER [facility] MCHC 33.2 33.0 - 36.0 G/DL 07/26/2022 3:40 AM [facility] RDW 13.8 11.5 - 14.5 % 07/26/2022 3:40 AM NATIONAL FACILITIES MANAGER [facility] PLT 283 150 - 350 x10'3/uL 07/26/2022 3:40 AM [facility] MPV 10.6(H) 7.4 - 10.4 FL 07/26/2022 3:40 AM [facility] ABS. NEUTROPHILS 16.80(H) 1.60 - 8.30 x10'3/uL 07/26/2022 4:48 AM [facility] ABS. NEUTROPHILS CALCULATED 16.45(H) 1.60 - 7.30 x10'3/uL 07/26/2022 4:48 AM [facility] BANDS 0.18 0.00 - 1.00 x10'3/uL 07/26/2022 4:48 AM NATIONAL FACILITIES MANAGER [facility] ABS. LYMPHOCYTES 0.53(L) 0.80 - 4.70 x10'3/uL 07/26/2022 4:48 AM [facility] ABS. MONOCYTES 0.18 0.00 - 1.50 x10'3/uL 07/26/2022 4:48 AM NATIONAL FACILITIES MANAGER [facility] ABS. EOSINOPHILS 0.00 0.00 - 0.40 x10'3/uL 07/26/2022 4:48 AM [facility] ABS. BASOPHILS 0.00 0.00 - 0.20 x10'3/uL 07/26/2022 4:48 AM [facility] ABS. MYELOCYTES 0.18(H) 0.00 x10'3/uL 07/26/2022 4:48 AM [facility] ABS. NUCLEATED RBC'S 0.18(H) 0.0 x10'3/uL 07/26/2022 4:48 AM [facility] RBC MORPHOLOGY POLYCHROMASIA 022 4:48 AM [facility] Comment: SLIGHT POIKILOCYTOSIS SLIGHT WBC MORPHOLOGY HYPERSEGMENTATION 4:48 AM [facility] Comment: TOXIC GRANULATION VACUOLATED NEUTROPHILS PLT MORPH. NORMAL 07/26/2022 4:48 AM [facility] 07/26/2022 2:38 AM NATIONAL FACILITIES MANAGER Ann Hammond NP LABORATORY Final Result [facility] [address] [place] [address], [phone] * (ABNORMAL) LDH, LACTATE DEHYDROGENASE (07/26/2022 2:38 AM NATIONAL FACILITIES MANAGER) LDH 265(H) 87 - 241 UNITS/L 07/26/2022 3:37 AM [facility] Comment:RESULT QUESTIONABLE DUE TO HEMOLYSIS, RECOMMEND RECOLLECTION. 07/26/2022 2:38 AM NATIONAL FACILITIES MANAGER Tracy Yo MD LABORATORY Final Result [facility] [address] [place] [address], [phone] * (ABNORMAL) COMPREHENSIVE METABOLIC PANEL (07/26/2022 2:38 AM NATIONAL FACILITIES MANAGER) Pathologist [facility] [place] SODIUM S/P/B 135(L) 136 - 145 MMOL/L 07/26/2022 3:37 AM [facility] POTASSIUM S/P/B 4.5 3.5 - 5.1 MMOL/L 07/26/2022 3:37 AM [facility] Comment:SLIGHT HEMOLYSIS, RE SULT MAY BE AFFECTED. CHLORIDE S/P/B 105 98 - 107 MMOL/L 07/26/2022 3:37 AM [facility] CO2 26.8 21.0 - 32.0 MMOL/L 07/26/2022 3:37 AM [facility] GLUCOSE 137(H) 74 - 106 MG/DL 07/26/2022 3:37 AM [facility] BUN 15 7 - 18 MG/DL 07/26/2022 3:37 AM [facility] CREATININE S/P/B 0.66(L) 0.70 - 1.30 MG/DL 07/26/2022 3:37 AM [facility] CALCIUM S/P/B 8.1(L) 8.5 - 10.1 MG/DL 07/26/2022 3:37 AM [facility] BILIRUBIN TOTAL S/P/B 0.2 0.2 - 1.0 MG/DL 07/26/2022 3:37 AM [facility] ALKALINE PHOSPHATASE S/P/B 60 45 - 115 U/L 07/26/2022 3:37 AM [facility] AST 19 15 - 37 U/L 07/26/2022 3:37 AM [facility] ALT 20 16 - 61 U/L 07/26/2022 3:37 AM [facility] TOTAL PROTEIN S/P/B 5.3(L) 6.4 - 8.2 G/DL 07/26/2022 3:37 AM [facility] ALBUMIN S/P/B 1.5(L) 3.4 - 5.0 G/DL 07/26/2022 3:37 AM [facility] ANION GAP 3.2(L) 5.0 - 15.0 MMOL/L 07/26/2022 3:37 AM [facility] OSMOLALITY (CALC) 283 MOSM/KG 022 3:37 AM [facility] Comment:REFERENCE RANGE NOT ESTABLISHED GFR ESTIMATE >90 >90 ML/MIN/1. 73 M2 07/26/2022 3:37 AM [facility] GFR NOTES GFR REFERENCE S: 07/26/2022 3:37 AM [facility] Comment: THE ESTIMATED GFR IS [...] FAILURE: <15 ml/min/1.73 m2 07/26/2022 2:38 AM NATIONAL FACILITIES MANAGER us Tracy Yo MD LABORATORY Final Result [facility] [address] [place] [address], [phone] * CTA CHEST+ABD+PEL (07/26/2022 12:32 AM NATIONAL FACILITIES MANAGER) Anatomical Region Laterality Modality Chest, Abdomen, Pelvis Computed Tomography 07/26/2022 12:5 6 AM NATIONAL FACILITIES MANAGER Impressions 07/26/2022 1:23 AM NATIONAL FACILITIES MANAGER IMPRESSION: 1. ??Air-fluid level within loculated fluid [...] 07/26/2022 12:56 AM Narrative 07/26/2022 1:23 AM NATIONAL FACILITIES MANAGER EXAMINATION: 1. ??CTA Chest with Intravenous Contrast, [...] (ABNORMAL) RETICULOCYTE CT, AUTO (07/25/2022 8:56 PM NATIONAL FACILITIES MANAGER) % RETICULOCYTE COUNT 4.0(H) 0.7 - 2.3 % 07/25/2022 9:04 PM NATIONAL FACILITIES MANAGER [facility] ABSOLUTE RETICULOCYTE 0.09 0.03 - 0.11 x10'6/uL 07/25/2022 9:04 PM NATIONAL FACILITIES MANAGER [facility] IMMATURE RETIC FRACTION 31.8(H) 2.3 - 13.4 % 07/25/2022 9:04 PM NATIONAL FACILITIES MANAGER [facility] RETIC HGB 31.9 28.0 - 35.0 PG 07/25/2022 9:04 PM NATIONAL FACILITIES MANAGER [facility] 07/25/2022 8:56 PM NATIONAL FACILITIES MANAGER Tracy Yo MD LABORATORY Final Result Performing Organization Address [facility] Co de Phone Number [facility] [address] [place] [address], [phone] * (ABNORMAL) HEMOGLOBIN AND HEMATOCRIT (07/25/2022 8:56 PM NATIONAL FACILITIES MANAGER) HGB 7.5(L) 13.0 - 18.0 G/DL 07/25/2022 9:04 PM NATIONAL FACILITIES MANAGER [facility] HCT 23.2(L) 37.0 - 52.0 % 07/25/2022 9:04 PM NATIONAL FACILITIES MANAGER [facility] 07/25/2022 8:56 PM NATIONAL FACILITIES MANAGER Tracy Yo MD LABORATORY Final Result Performing Organization Address [facility] Co de Phone Number [facility] [address] [place] [address], [place] [phone] * STREP PNEUMO AG URINE (07/25/2022 8:31 PM NATIONAL FACILITIES MANAGER) S. PNEUMONIAE URINARY AG NEGATIVE NEGATIVE 07/26/2022 2:26 PM NATIONAL FACILITIES MANAGER [facility] Comment: PRESUMPTIVE NEGATIVE FOR PNEUMOCOCCAL PNEUMONIA, SUGGESTING NO CURRENT OR RECENT PNEUMOCOCCAL INFECTION. INFECTION DUE TO STREPTOCOCCUS PNEUMONIA CANNOT BE RULED OUT SINCE THE ANTIGEN PRESENT IN THE SAMPLE MAY BELOW THE DETECTION LIMIT OF THE TEST. SPECIMEN TYPE URINE VOIDED 8:31 PM NATIONAL FACILITIES MANAGER [facility] URINE SPECIMEN FROM URETHRA / Unknown 07/25/2022 8:31 PM NATIONAL FACILITIES MANAGER us Tracy Yo MD MICROBIOLOGY - GENERA L ORDERABLES Final Result Performing Organization Address [facility] de Phone Number [facility] [address] [place] [address], [phone] * LEGIONELLA AG URINE (07/25/2022 8:31 PM NATIONAL FACILITIES MANAGER) LEGIONELLA ANTIGEN (URINE) NEGATIVE NEGATIVE 07/26/2022 2:26 PM NATIONAL FACILITIES MANAGER [facility] Comment: PRESUMPTIVE NEGATIVE FOR L. PNEUMOPHILA [...] URINE SPECIMEN / Unknown 07/25/2022 8:31 PM NATIONAL FACILITIES MANAGER us Tracy Yo MD MICROBIOLOGY - GENERA L ORDERABLES Final Result Performing Organization Address [facility] de Phone Number [facility] [address] [place] [address], [phone] * BLOOD SMEAR INTERPRETATION BY (07/25/2022 5:23 PM NATIONAL FACILITIES MANAGER) [facility] PATHOLOGIST COMMENT SENT TO PATHOLOGIST FOR REVIEW 07/25/2022 5:32 PM NATIONAL FACILITIES MANAGER [facility] 07/25/2022 5:23 PM NATIONAL FACILITIES MANAGER us Tracy Yo MD LABORATORY Final Result Performing Organization Address [facility] Co de Phone Number [facility] [address] [place] [address], [place] [phone] * (ABNORMAL) LDH, LACTATE DEHYDROGENASE (07/25/2022 5:23 PM NATIONAL FACILITIES MANAGER) LDH 280(H) 87 - 241 UNITS/L 07/25/2022 5:59 PM NATIONAL FACILITIES MANAGER [facility] 07/25/2022 5:23 PM NATIONAL FACILITIES MANAGER us Tracy Yo MD LABORATORY Final Result Performing Organization Address [facility] Co de Phone Number [facility] [address] [place] [address], [phone] * (ABNORMAL) HEMOGLOBIN AND HEMATOCRIT (07/25/2022 5:23 PM NATIONAL FACILITIES MANAGER) Pathologist [facility] [place] HGB 8.1(L) 13.0 - 18.0 G/DL 07/25/2022 5:31 PM NATIONAL FACILITIES MANAGER [facility] HCT 24.4(L) 37.0 - 52.0 % 07/25/2022 5:31 PM NATIONAL FACILITIES MANAGER [facility] 07/25/2022 5:23 PM NATIONAL FACILITIES MANAGER us Tracy Yo MD LABORATORY Final Result Performing Organization Address [facility] de Phone Number [facility] [address] [place] [address], [place] [phone] * HIV 1 ANTIGEN(S), WITH HIV-1 AND HIV-2 ANTIBODIES (07/25/2022 5:23 PM NATIONAL FACILITIES MANAGER) HIV 1/2 AB+ HIV1 P24 AG NON-REACTI VE NON-REACTI VE 07/25/2022 6:53 PM NATIONAL FACILITIES MANAGER [facility] Comment:HIV 1 p24 Ag and HIV 1/ HIV 2 Ab not detected. 07/25/2022 5:23 PM NATIONAL FACILITIES MANAGER us Tracy Simon Tarar MD LABORATORY Final Result [facility] [address] [place] [address], [phone] * MYCOPLASMA PNEUMONIAE AB (07/25/2022 5:23 PM NATIONAL FACILITIES MANAGER) [facility] M. PNEUMONIAE AB IGG <=0.90 <=0.90 07/30/2022 2:29 PM NATIONAL FACILITIES MANAGER [employer] Comment: Reference Range: ?<=0.90 ? Negative ? 0.91-1.09 ? Equivocal ?>=1.10 ? Positive A positive IgG result indicates that the patient has antibody to Mycoplasma. It does not differentiate between an active or past infection. The clinical diagnosis must be interpreted in conjunction with the clinical signs and symptoms of the patient. M. PNEUMONIAE AB IGM 463 <770 U/mL 07/30/2022 2:29 PM NATIONAL FACILITIES MANAGER [facility] [employer] Comment: Reference Range: ?? <770 U/ml [...] symptoms of the patient. Test Performed by [employer] [facility], [address] [place] [address] Adrián Balderas M.D., Ph.D., Director of Laboratories , CLIA [id number] 07/25/2022 5:23 PM NATIONAL FACILITIES MANAGER Tracy Yo MD LABORATORY Final Result [facility] [address] [place] [address], [place] [phone] * (ABNORMAL) PROTIME/INR, VENOUS (PROTHROMBIN TIME) (07/25/2022 5:23 PM NATIONAL FACILITIES MANAGER) PROTIME 14.6(H) 9.4 - 12.5 SEC 07/25/2022 5:56 PM NATIONAL FACILITIES MANAGER [facility] LAB INR 1.3(H) 0.8 - 1.1 07/25/2022 5:56 PM NATIONAL FACILITIES MANAGER [facility] 07/25/2022 5:23 PM NATIONAL FACILITIES MANAGER Tracy Yo MD LABORATORY Final Result [facility] [address] [place] [address], [id number] * TYPE & SCREEN (07/25/2022 5:23 PM NATIONAL FACILITIES MANAGER) UNITS ORDERED 1 07/25/2022 5:33 PM NATIONAL FACILITIES MANAGER [facility] ABO/RH B POSITIVE 07/25/2022 6:36 PM NATIONAL FACILITIES MANAGER [facility] ANTIBODY SCREEN NEGATIVE 6:36 PM NATIONAL FACILITIES MANAGER [facility] SAMPLE EXPIRATION 07/28/2022,2359 07/25/2022 5:33 PM NATIONAL FACILITIES MANAGER [facility] BLOOD UNIT NUMBER [id number] 07/27/2022 4:27 AM NATIONAL FACILITIES MANAGER [facility] PRODUCT: PC LEUKOPOOR 07/27/2022 4:27 AM NATIONAL FACILITIES MANAGER [facility] UNIT DIVISION 00 07/27/2022 4:27 AM NATIONAL FACILITIES MANAGER [facility] BLOOD UNIT STATUS TRANSFUSED,FINAL 07/28/2022 2:57 AM NATIONAL FACILITIES MANAGER [facility] ISSUE DATE/TIME [id number] 022 2:57 AM [facility] PRODUCT CODE [id number] 07/28/2022 2:57 AM NATIONAL FACILITIES MANAGER [facility] ABO/RH Unit B POS 07/28/2022 2:57 AM NATIONAL FACILITIES MANAGER [facility] ABO/RH UNIT ISBT CODE 7300 07/28/2022 2:57 AM NATIONAL FACILITIES MANAGER [facility] BLOOD UNIT EXPIRATION DATE [id number] 07/28/2022 2:57 AM NATIONAL FACILITIES MANAGER [facility] TRANSFUSION STATUS OK TO TRANSFUSE 07/27/2022 4:27 AM NATIONAL FACILITIES MANAGER [facility] CROSSMATCH COMPATIBLE-EXM 07/27/2022 4:27 AM NATIONAL FACILITIES MANAGER [facility] 07/25/2022 5:23 PM NATIONAL FACILITIES MANAGER us Tracy Yo MD BLOOD BANK TEST ORDER CHRISTIANA Final Result [facility] [address] [place] [address], [id number] * CULTURE, BACTERIA, BLOOD (07/25/2022 2:17 PM NATIONAL FACILITIES MANAGER) SPEC DESCRIPTION BLOOD 07/25/2022 1:55 PM NATIONAL FACILITIES MANAGER [facility] SPECIAL REQUESTS NO SPECIAL REQUEST 07/25/2022 1:55 PM NATIONAL FACILITIES MANAGER [facility] CULTURE RESULT NO GROWTH 5 DAYS 07/30/2022 5:25 AM NATIONAL FACILITIES MANAGER [facility] BLOOD SPECIMEN OBTAINED FOR BLOOD CULTURE / Unknown 07/25/2022 2:17 PM NATIONAL FACILITIES MANAGER 07/25/2022 2:32 PM NATIONAL FACILITIES MANAGER us Tracy Yo MD MICROBIOLOGY - GENERA L ORDERABLES Final Result [facility] [address] [place] [address], [id number] * (ABNORMAL) COMPREHENSIVE METABOLIC PANEL (07/25/2022 2:16 PM NATIONAL FACILITIES MANAGER) SODIUM S/P/B 137 136 - 145 MMOL/L 07/25/2022 3:00 PM [facility] POTASSIUM S/P/B 3.4(L) 3.5 - 5.1 MMOL/L 07/25/2022 3:00 PM [facility] CHLORIDE S/P/B 106 98 - 107 MMOL/L 07/25/2022 3:00 PM [facility] CO2 24.7 21.0 - 32.0 MMOL/L 07/25/2022 3:00 PM [facility] GLUCOSE 85 74 - 106 MG/DL 07/25/2022 3:00 PM [facility] BUN 17 7 - 18 MG/DL 07/25/2022 3:00 PM [facility] CREATININE S/P/B 0.57(L) 0.70 - 1.30 MG/DL 07/25/2022 3:00 PM [facility] CALCIUM S/P/B 7.8(L) 8.5 - 10.1 MG/DL 07/25/2022 3:00 PM [facility] BILIRUBIN TOTAL S/P/B 0.3 0.2 - 1.0 MG/DL 07/25/2022 3:00 PM [facility] ALKALINE PHOSPHATASE S/P/B 61 45 - 115 U/L 07/25/2022 3:00 PM [facility] AST 23 15 - 37 U/L 07/25/2022 3:00 PM [facility] ALT 23 16 - 61 U/L 07/25/2022 3:00 PM [facility] TOTAL PROTEIN S/P/B 5.3(L) 6.4 - 8.2 G/DL 07/25/2022 3:00 PM [facility] ALBUMIN S/P/B 1.5(L) 3.4 - 5.0 G/DL 07/25/2022 3:00 PM [facility] ANION GAP 6.3 5.0 - 15.0 MMOL/L 07/25/2022 3:00 PM [facility] OSMOLALITY (CALC) 285 MOSM/KG 022 3:00 PM [facility] Comment:REFERENCE RANGE NOT ESTABLISHED GFR ESTIMATE >90 >90 ML/MIN/1. 73 M2 07/25/2022 3:00 PM [facility] GFR NOTES GFR REFERENCE S: 07/25/2022 3:00 PM [facility] Comment: THE ESTIMATED GFR IS [...] FAILURE: <15 ml/min/1.73 m2 07/25/2022 2:16 PM NATIONAL FACILITIES MANAGER Tracy Yo MD LABORATORY Final Result [facility] [address] [place] [address], [id number] * (ABNORMAL) CBC W/DIFF AUTOMATED (07/25/2022 2:16 PM NATIONAL FACILITIES MANAGER) WBC 17.6(H) 4.0 - 10.8 x10'3/uL 07/25/2022 2:26 PM [facility] RBC 2.07(L) 4.50 - 6.10 x10'6/uL 07/25/2022 2:26 PM [facility] HGB 7.0(L) 13.0 - 18.0 G/DL 07/25/2022 2:26 PM [facility] HCT 21.0(L) 37.0 - 52.0 % 07/25/2022 2:26 PM [facility] MCV 101.4(H) 78.0 - 100.0 FL 07/25/2022 2:26 PM [facility] MCH 33.8(H) 27.0 - 31.0 PG 07/25/2022 2:26 PM [facility] MCHC 33.3 33.0 - 36.0 G/DL 07/25/2022 2:26 PM [facility] RDW 13.6 11.5 - 14.5 % 07/25/2022 2:26 PM [facility] PLT 260 150 - 350 x10'3/uL 07/25/2022 2:26 PM [facility] MPV 10.8(H) 7.4 - 10.4 FL 07/25/2022 2:26 PM [facility] ABS. NEUTROPHILS 14.78(H) 1.60 - 8.30 x10'3/uL 07/25/2022 2:42 PM [facility] ABS. NEUTROPHILS CALCULATED 13.55(H) 1.60 - 7.30 x10'3/uL 07/25/2022 2:42 PM [facility] ABS. LYMPHOCYTES 2.29 0.80 - 4.70 x10'3/uL 07/25/2022 2:42 PM [facility] ABS. MONOCYTES 0.53 0.00 - 1.50 x10'3/uL 07/25/2022 2:42 PM NATIONAL FACILITIES MANAGER [facility] ABS. EOSINOPHILS 0.00 0.00 - 0.40 x10'3/uL 07/25/2022 2:42 PM NATIONAL FACILITIES MANAGER [facility] ABS. BASOPHILS 0.00 0.00 - 0.20 x10'3/uL 07/25/2022 2:42 PM NATIONAL FACILITIES MANAGER [facility] ABS. METAMYELOCYTES 0.70(H) 0.00 x10'3/uL 07/25/2022 2:42 PM NATIONAL FACILITIES MANAGER [facility] ABS. MYELOCYTES 0.35(H) 0.00 x10'3/uL 07/25/2022 2:42 PM NATIONAL FACILITIES MANAGER [facility] ABS. PROMYELOCYTES 0.18(H) 0.00 x10'3/uL 07/25/2022 2:42 PM NATIONAL FACILITIES MANAGER [facility] ABS. NUCLEATED RBC'S 0.00 0.0 x10'3/uL 07/25/2022 2:42 PM NATIONAL FACILITIES MANAGER [facility] RBC MORPHOLOGY ANISOCYTOSIS 07/25/20 2:42 PM NATIONAL FACILITIES MANAGER [facility] Comment: SLIGHT MACROCYTOSIS MODERATE POIKILOCYTOSIS SLIGHT OVALOCYTES ACANTHOCYTES WBC MORPHOLOGY VACUOLATED NEUTROPHILS 07/25/2022 2:42 PM NATIONAL FACILITIES MANAGER [facility] PLT MORPH. NORMAL 07/25/2022 2:42 PM NATIONAL FACILITIES MANAGER [facility] 07/25/2022 2:16 PM NATIONAL FACILITIES MANAGER Tracy Yo MD LABORATORY Final Result [facility] [address] [place] [address], [id number] * CULTURE, BACTERIA, BLOOD (07/25/2022 2:16 PM NATIONAL FACILITIES MANAGER) SPEC DESCRIPTION BLOOD 07/25/20 2:32 PM NATIONAL FACILITIES MANAGER [facility] SPECIAL REQUESTS BLOOD-AERO BIC BOTTLE ONLY 07/25/2022 2:32 PM NATIONAL FACILITIES MANAGER [facility] CULTURE RESULT NO GROWTH 5 DAYS 07/30/2022 5:25 AM NATIONAL FACILITIES MANAGER [facility] BLOOD SPECIMEN OBTAINED FOR BLOOD CULTURE / Unknown 07/25/2022 2:16 PM NATIONAL FACILITIES MANAGER 07/25/2022 2:32 PM NATIONAL FACILITIES MANAGER Tracy Yo MD MICROBIOLOGY - GENERA L ORDERABLES Final Result [facility] [address] [place] [address], [id number] * Pathology (07/25/2022 12:00 AM NATIONAL FACILITIES MANAGER) PATHOLOGY [facility] ? Department of Laboratory Medicine ?[address] [facility] ?[place] [address] ? , extension [phone] ? Pathology Report ? Peripheral Smear Report Name: RAY PHILLIPS ? Specimen #: [id number] Age: 9 1955 (Age: 67) ? Location: [facility] Sex: M ?Procedure Date: 07/25/2022 Hospital #: [id number] ?Date Received: 07/27/2022 Date Reported: 07/27/2022 Provider: [...] applicable), interpretation and sign-out were performed at [facility], [address] [facility] [address], [place], [place], [address]. [facility] 07/25/2022 07/27/2022 7:5 8 AM NATIONAL FACILITIES MANAGER Comment:Peripheral blood Tracy Yo MD PATHOLOGY/CYTOLOGY OR DERABLES Final Result [facility] [address] [place] [address], [place] [phone] [id number] documented in this encounter Visit Diagnoses Not on filedocumented in this encounter Admitting Diagnoses Diagnosis Respiratory failure ([facility]) Acute respiratory failure documented in this encounter [...] in 24 hours. Given 08/05/2022 9:02 PM NATIONAL FACILITIES MANAGER 650 mg Given 08/04/2022 10:28 PM NATIONAL FACILITIES MANAGER 650 mg Given 08/01/2022 9:40 PM NATIONAL FACILITIES MANAGER 650 mg albuterol sulfate HFA 108 (90 Base) MCG/ACT inhaler 2 puff 2 puff, Inhalation, Every 4 hours PRN, Wheezing, Shortness of breath, Starting on Sat07/25/22 at 1355, Until Sat08/08/22 at 1357 alteplase (CATHFLO) injection Code/trauma/sedation medication, Starting on Sat07/27/22 at 1034, Until Sat08/08/22 at 1357 Given 07/27/2022 10:34 AM NATIONAL FACILITIES MANAGER 2 mg Chest BUpivacaine (PF) (MARCAINE) 0.25 % injection As needed, Starting on Zulema 08/02/22 at 0823, Until Zulema 08/02/22 at 0927, Intra-Op Given 08/02/2022 8:23 AM NATIONAL FACILITIES MANAGER 30 mLs Operative Site calcium carbonate (TUMS) chewable tablet 500 mg 500 mg, Oral, Daily as needed, Indigestion, Starting on 08/04/22 at 1439, Until Sat08/08/22 at 1357 Given 08/04/2022 2:47 PM NATIONAL FACILITIES MANAGER 500 mg cefTRIAXone (ROCEPHIN) 2 g in sodium chloride 0.9 % 50 mL IVPB 2 g, Intravenous, at 100 mL/hr, Every 24 hours, First dose on Sat08/06/22 at 1400, Until Discontinued New Bag 08/08/2022 10:55 AM NATIONAL FACILITIES MANAGER 2 g 100 mL/hr New Bag 08/07/2022 2:58 PM NATIONAL FACILITIES MANAGER 2 g 100 mL/hr New Bag 08/06/2022 1:25 PM NATIONAL FACILITIES MANAGER 2 g 100 mL/hr enoxaparin (LOVENOX) 40 MG/0.4ML syringe 40 mg 40 mg, Subcutaneous, Nightly (enoxaparin), First dose on Sat08/03/22 at 2100, Until Discontinued, Administer by deep SubQ injection alternating between the left or right anterolateral and left or right posterolateral abdominal wall. Given 08/07/2022 8:35 PM NATIONAL FACILITIES MANAGER 40 mg Right Lower Abdomen Given 08/06/2022 9:35 PM NATIONAL FACILITIES MANAGER 40 mg Ri ght Lower Abdomen Given 08/05/2022 8:52 PM NATIONAL FACILITIES MANAGER 40 mg Ri ght Lower Abdomen FLUoxetine (PROzac) capsule 20 mg 20 mg, Oral, Daily, First dose on Sat07/25/22 at 1700, Until Discontinued Given 08/08/2022 8:44 AM NATIONAL FACILITIES MANAGER 20 mg Given 08/07/2022 8:51 AM NATIONAL FACILITIES MANAGER 20 mg Given 08/06/2022 10:03 AM NATIONAL FACILITIES MANAGER 20 mg gabapentin (NEURONTIN) capsule 300 mg 300 mg, Oral, 2 times daily, First dose on Sat07/25/22 at 2100, Until Discontinued Given 08/08/2022 8:44 AM NATIONAL FACILITIES MANAGER 300 mg Given 08/07/2022 8:35 PM NATIONAL FACILITIES MANAGER 300 mg Given 08/07/2022 8:51 AM NATIONAL FACILITIES MANAGER 300 mg HYDROcodone-acetaminophen (NORCO) 10-325 MG tablet 1 tablet 1 tablet, Oral, Every 6 hours PRN, Moderate pain (Scale 4 - 7), Severe pain (Scale 8 - 10), Starting on Sat07/25/22 at 1634, Until Sat08/08/22 at 1357, Second line for moderate pain Maximum dose of acetaminophen is 4000 mg from all sources in 24 hours. Given 08/08/2022 6:00 AM NATIONAL FACILITIES MANAGER 1 t ablet Given 08/07/2022 8:35 PM NATIONAL FACILITIES MANAGER 1 tablet Given 08/07/2022 8:55 AM NATIONAL FACILITIES MANAGER 1 tablet influenza virus vaccine (QUAD) injection [...] to first use. Given 08/08/2022 10:59 AM NATIONAL FACILITIES MANAGER 1 puff Given 08/08/2022 8:48 AM NATIONAL FACILITIES MANAGER 1 puff Given 08/08/2022 2:27 AM NATIONAL FACILITIES MANAGER 1 puff lidocaine (XYLOCAINE) 1 % injection SOLN Code/trauma/sedation medication, Starting on Sat07/27/22 at 1016, Until Sat08/08/22 at 1357 Given 07/27/2022 10:16 AM NATIONAL FACILITIES MANAGER 8 mLs Chest lidocaine 4 % patch 1 patch 1 patch, Transdermal, Administer over 12 Hours, Every 24 hours, First dose on Sat08/03/22 at 0615, Until Discontinued Patch Applied 08/08/2022 6:01 AM NATIONAL FACILITIES MANAGER 1 patch Back Patch Applied 08/07/2022 5:47 AM NATIONAL FACILITIES MANAGER 1 patch Back Patch Applied 08/06/2022 5:38 AM NATIONAL FACILITIES MANAGER 1 patch Back LORazepam (ATIVAN) tablet 1 mg 1 mg, Oral, 2 times daily PRN, Anxiety, Starting on Sat07/25/22 at 1634, Until Sat08/08/22 at 1357 Given 08/08/2022 10:25 AM NATIONAL FACILITIES MANAGER 1 mg Given 08/07/2022 5:13 PM NATIONAL FACILITIES MANAGER 1 mg Given 08/07/2022 3:33 AM NATIONAL FACILITIES MANAGER 1 mg metroNIDAZOLE (FLAGYL) tablet 500 mg 500 mg, Oral, Every 8 hours scheduled (3 times per day), First dose on Sat07/30/22 at 1430, Until Discontinued Given 08/08/2022 6:00 AM NATIONAL FACILITIES MANAGER 500 mg Given 08/07/2022 10:52 PM NATIONAL FACILITIES MANAGER 500 mg Given 08/07/2022 2:58 PM NATIONAL FACILITIES MANAGER 500 mg morphine (MSIR) tablet 30 mg 30 mg, Oral, Every 8 hours PRN, Moderate pain (Scale 4 - 7), Starting on Sat07/25/22 at 1634, Until Sat08/08/22 at 1357, First line for moderate painIndications:Chronic Pain Given 08/08/2022 10:25 AM NATIONAL FACILITIES MANAGER 3 0 mg Given 08/08/2022 2:26 AM NATIONAL FACILITIES MANAGER 30 mg Given 08/07/2022 5:15 PM NATIONAL FACILITIES MANAGER 30 mg normal saline 0.9 % flush 3-10 mL 3-10 mL, Intravenous, Every 8 hours, First dose on Zulema 08/02/22 at 0945, Until Discontinued, Post-Op Given 08/08/2022 8:48 AM NATIONAL FACILITIES MANAGER 10 mLs Given 08/07/2022 10:52 PM NATIONAL FACILITIES MANAGER 10 mLs Given 08/06/2022 10:04 AM NATIONAL FACILITIES MANAGER 5 mLs normal saline 0.9 % flush 3-10 mL 3-10 mL, Intravenous, As needed, Line care, Starting on Zulema 08/02/22 at 0915, Until Sat08/08/22 at 1357, Post-Op Given 08/02/2022 6:33 PM NATIONAL FACILITIES MANAGER 10 mLs ondansetron (ZOFRAN) injection 4 mg 4 mg, Intravenous, Every 8 hours PRN, Nausea, Vomiting, Starting on Sat07/25/22 at 1355, Until Sat08/08/22 at 1357, IV push over 2-5 minutes. polyethylene glycol (GLYCOLAX) packet 17 g 17 g, Oral, 2 times daily, First dose on Zulema 08/02/22 at 0945, Until Discontinued, Until bowel movement, then discontinue, Post-Op Given 08/07/2022 8:35 PM NATIONAL FACILITIES MANAGER 17 g Given 08/07/2022 8:51 AM NATIONAL FACILITIES MANAGER 17 g Given 08/06/2022 9:37 PM NATIONAL FACILITIES MANAGER 17 g senna-docusate (SENOKOT-S) 8.6-50 MG tablet 1 tablet 1 tablet, Oral, Nightly PRN, Constipation, Starting on Zulema 08/02/22 at 0920, Until Sat08/08/22 at 1357, Post-Op Given 08/06/2022 5:43 AM NATIONAL FACILITIES MANAGER 1 tablet Given 08/05/2022 5:03 AM NATIONAL FACILITIES MANAGER 1 tablet sodium chloride (OCEAN) 0.65 % nasal spray 1 spray 1 spray, Each Nostril, As needed, Dryness, Starting on Sat07/25/22 at 2141, Until Sat08/08/22 at 1357 Given 07/25/2022 11:05 PM NATIONAL FACILITIES MANAGER 1 spray traZODone (DESYREL) tablet 100 mg 100 mg, Oral, Nightly at bedtime, First dose on Sat07/25/22 at 2100, Until Discontinued Given 08/07/2022 8:35 PM NATIONAL FACILITIES MANAGER 100 mg Given 08/06/2022 9:36 PM NATIONAL FACILITIES MANAGER 100 mg Given 08/05/2022 8:52 PM NATIONAL FACILITIES MANAGER 100 mg documented in this encounter Active and Recently Administered Medications Times are shown in NATIONAL FACILITIES MANAGER. Scheduled Medication Order 08/06/2022 08/07/2022 08/08/2022 [email or web address] [...] abdominal wall. 2134 (Given - Provider: Merary Lagnley RN) 2034 (Given - Provider: Merary Langley [...] Provider: Kia Feliciano RN)1231 (Given - Provider: iKa Feliciano, ALANNAH)1600 (Not Given - Provider: Beata [...] Gadiel Fitch RN)1325 (Given - Provider: Miguel Cises RN) 0333 (Given - Provider: Merary Langley [...] Rule Out 07/25/2022 07/25/2022 08/01/2022 12:32 AM NATIONAL FACILITIES MANAGER documented as of this encounter Care Teams Pillow Agent Relationship Specialty Start Date End Date Joe Tam DO [address] [place] [address] PCP - General FAMILY PRACTICE 07/22/22 documented as of this encounter
--- OUTSIDE RECORDS SUMMARY | 2024-08-20 14:27 | XMS_ITS | Encounter Summary ---
Author Organization [facility] Address [facility] [place] [address] [place] [address] Care Team Providers Care Accountancy Professor Name Role Phone Joe Tam Primary Care Provider [phone] Reason for Visit * Auth/Cert (Routine) Specialty Diagnoses / Procedures Referred By Contac t Referred To Contact Diagnoses Respiratory failure (CMS/HCC [facility]/HCC) Acute respiratory failure Respiratory failure ([facility]) Procedures NONE De Villasenor MD [address] [place] [address] Phone: tel: fax: Referral ID Status Reason Start Date Expiration Date Visits Re quested Visits Authorized [id number] 1 1 Encounter Details Date Type Department Care Team (Late st Contact Info) Description 07/30/2022 3:10 PM JOURNEYMAN SHEET METAL WORKER - 07/30/2022 4:40 PM JOURNEYMAN SHEET METAL WORKER Surgery [facility] [place] [address] [place] [address] Patti Pineda MD [address] [place] [address] DIAGNOSTIC BRONCHOSCOPY, BAL OF RIGHT [...] 07/30/22 MOVED FROM 07[place] [facility] [place] @1548 [place] documented in this encounter [...] Coronavirus/COVID-19? No / Unsure 07/30/2022 6:53 AM JOURNEYMAN SHEET METAL WORKER documented as of this encounter Last Filed Vital Signs Vital Sign Reading Time Taken Comments Blood Pressure 113/93 07/30/2022 4:30 PM JOURNEYMAN SHEET METAL WORKER Pulse 58 07/30/2022 4:30 PM JOURNEYMAN SHEET METAL WORKER Temperature 36.9 ??C (98.4 ??F) 07/30/2022 3:50 PM CS T Respiratory Rate 18 07/30/2022 4:30 PM JOURNEYMAN SHEET METAL WORKER Oxygen Saturation 92% 07/30/2022 4:30 PM JOURNEYMAN SHEET METAL WORKER Inhaled Oxygen Concentration - - Weight 67.5 kg (148 lb 12.8 oz) 07/28/2022 3:26 AM JOURNEYMAN SHEET METAL WORKER Height 165.1 cm (5' 5 ) 07/25/2022 1:30 PM JOURNEYMAN SHEET METAL WORKER Body Mass Index 24.76 07/25/2022 1:30 PM JOURNEYMAN SHEET METAL WORKER documented in this encounter Functional Status * Question Answer Date of Assessment Author Status Do you have serious difficulty walking or climbing stairs? No 07/25/2022 11:00 PM JOURNEYMAN SHEET METAL WORKER Noelle Vega RN Active * Question Answer Date of Assessment Author Status Do you have difficulty dressing or bathing? No 07/25/2022 11:00 PM JOURNEYMAN SHEET METAL WORKER Nan Vega RN Active Because of a physical, mental, or emotional condition, do you have difficulty doing errands alone such as visiting a doctor's office or shopping? No 07/25/2022 11:00 PM Noelle Bueno RN Active * RETIRED Are you deaf or do you have serious difficulty hearing Answer Date of Assessment Author Status No 07/25/2022 11:00 PM JOURNEYMAN SHEET METAL WORKER Acti ve * RETIRED Are you blind or do you have serious difficulty seeing, even when wearing glasses? Answer Date of Assessment Author Status No 07/25/2022 11:00 PM JOURNEYMAN SHEET METAL WORKER Acti ve * Do you have [...] Physician Discharge Summary Patient ID: Ray Phillips [id number] 67-year-old 1955 Primary care physician:JOE TAM DO [...] please fax to [facility] at [phone] - Please follow-up with [facility] in 3 weeks, please call [phone] to schedule a follow-up apt - Risks of indwelling line/group home IV antibiotics discussed with patient (including C. [...] in stable condition Thank you for choosing [facility] HOSPITALIST SERVICE -PLEASE CALL [phone] EXT [phone] IF QTS Code Status: Prior Procedure: Procedures [...] decubitus position on the CT table and [place] protocol was observed to verify correct patient, [...] CT. The tract was dilated to 12 Bahamian. During dilation, there was temporary retraction of the wire resulting in slight kinking and difficulty advancing the tube. Access was again regained using theone-step sheath needle, followed again by CT confirmation of position, wire placement, and tract dilation. A 12-Bahamian pigtail drainage catheter with the locking stitch [...] Date: 07/28/2022 Echocardiography Report Pat.Name: RAY PHILLIPS.ID: [id number] .Date: 07/27/2022 : [id number] NON-STAFF PROVIDER EWDPROV EWDPROV Exam Time: 12:44:00 PM Study Type:ECHO WITH CARDIAC DOPPLER COMP Height: 165 cm Weight: 68 kg BSA: 1.75 m2 Age: 9 1955,67Y Sex: M BP: 138/68 HR: 70 bpm Sonogrphr: Avery Marie [facility] Pat. Stat.:Inpatient Room: 742 CPT - 4: 66519 Reason for Study:Pericardial effusion Procedures: 2D, M-mode, [...] Mass 2D Value 229 g LV Mass Ligrs4H Value 131g/m2 Right Ventricle Right Ventricle 14.3 [...] Procedure: Midline venous catheter placement. Grafts/Implants: 4 Bahamian midlinevenous catheter Interventional Radiologist: Óscar Community Affairs Manager: ANSON Keating Anesthesia: Local - 1% [...] centrally. Peel-away sheath was placed. A 4 Bahamian single lumen midline, 20 cm.This was advanced [...] Disposition: HOME WITH HOME HEALTH @DOCUMENTATION OF UYLF-JC-SHVI ENCOUNTER FOR HOME HEALTH I attest that a Wffw-pg-Raxf encounter with Ray Phillips was made on [...] are for medical reasons,or for attendance at holiness events; absences from home for nonmedical reasons [...] WHEN ANTIBIOTICS COMPLETED Patti Pineda MD [address] [facility] [address] Follow up in 1 week(s) Joe Tam DO [address] [facility] [address] Follow up in 1 week(s) Zoila Farias MD [address] [facility] [address] Follow up in 2 week(s) Ross Blackburn MD [address] [facility] [address] Follow up in 1 month(s) Follow up labs neededWhile on IV antibiotics, obtain weekly labs - CBC and CMP, please fax to [facility] at [phone] Follow up instructions ABOVE Discharge time spent: 35 minutes Signed: LANRE WINTER MD 08/08/2022 2:16 PM NEYMAN SHEET METAL WORKER documented in this encounter Discharge Instructions * Discharge Instructions* Raquel Wetzel MD - 08/07/2022 7:16 AM JOURNEYMAN SHEET METAL WORKER ACTIVITY Your smaller incision will take [...] the Cardiothoracic Surgery at any time at [phone] NEYMAN SHEET METAL WORKER documented in this encounter Medications at [...] D/C plans IDBR done with Dr Winter [facility] to discuss POC/D/C plans. See notes below. 08/08/22924 Interdisciplinary Group Conference Team Members Present Physician;Case/Care management Barriers to Discharge Barriers Other (Comment) Other (Comment)follow up D/C to home with [facility] and [facility] for IV supplies. NEYMAN SHEET METAL WORKER * Lanre Winter MD - 08/07/2022 [...] Procedure Component Value Units Date/Time CULTURE, ANAEROBIC [[id number]] Collected: 08/02/22837 Order Status: Completed Lab Status: Final result Updated: 08/07/22 0910 Specimen: TISSUE from OTHER (type in comments) Spec. Description TISSUE: RT DECORTICATION TISU Special Requests: NO SPECIAL REQUEST Culture Result: NO ANAEROBES ISOLATED CULTURE TB/AFB OTHER (TYPE IN COMMENTS) [[id number]] Collected: 08/02/22837 Order Status: Sent Lab Status: In process Updated: 08/02/22 1009 Specimen: TISSUE from OTHER (type in comments) CULTURE, FUNGUS [[id number]] Collected: 08/02/22837 Order Status: Sent Lab Status: In process Updated: 08/02/22 1010 Specimen: TISSUE from OTHER (type in comments) CULTURE, TISSUE W/GRAM STAIN [[id number]] Collected: 08/02/22837 Order Status: Completed Lab Status: Final result Updated: 08/07/22 1136 Specimen: TISSUE from OTHER (type in comments) Spec. Description TISSUE: RT DECORTICATION TISU Special Requests: NO SPECIAL REQUEST Gram Stain Result -- MODERATE NEUTROPHILS SEEN Gram Stain Result NO ORGANISMS SEEN Culture Result: NO GROWTH 5 DAYS SMEAR,FLUOR STAIN,ACID FAST [[id number]] Collected: 08/02/22 0838 Order Status: Completed Lab Status: Final result Updated: 08/05/221944 ACID FAST SMEAR RESULT SEE NOTE 08/05/2022 07:45 PM Comment: Test Result Flag Unit RefValue Acid Fast Smear For Mycobacterium SOURCE: LUNG, RIGHT, RT DECORTICATION TIS ACID FAST SMEAR FOR MYCOBACTERIUM FINAL Negative. Test Performed by: [place] [address] Enterer: Brent Alcaraz M.D. Ph.D.; CLIA# [id number] CULTURE, FUNGUS [[id number]] Order Status: No result Lab Status: No result Specimen: BRONCHOALVEO LAV, RT LWR CULTURE TB/AFB OTHER (TYPE IN COMMENTS) [[id number]] Order Status: No result Lab Status: No result Specimen: BRONCHOALVEO LAV, RT LWR SMEAR,FLUOR STAIN,ACID FAST [[id number]] Order Status: No result Lab Status: No result Specimen: BRONCHOALVEO LAV, RT LWR CULTURE VIRAL RESPIRATORY RAPID [[id number]] Order Status: No result Lab Status: No result Specimen: BRONCHOALVEO LAV, RT LWR CULTURE RESPIRATORY W/ GRAM STAIN [[id number]] Order Status: No result Lab Status: No result Specimen: BRONCHIAL WASHING CULTURE, FUNGUS [[id number]] Order Status: No result Lab Status: No result Specimen: BRONCHIAL WASHING CULTURE TB/AFB OTHER (TYPE IN COMMENTS) [[id number]] Order Status: No result Lab Status: No result Specimen: BRONCHIAL WASHING SMEAR,FLUOR STAIN,ACID FAST [[id number]] Order Status: No result Lab Status: No result Specimen: BRONCHIAL WASHING CULTURE VIRAL RESPIRATORY RAPID [[id number]] Order Status: No result Lab Status: No result Specimen: BRONCHIAL WASHING CULTURE, QUANTITATIVE W/ GRAM STAIN [[id number]] Order Status: No result Lab Status: No result Specimen: BRONCHOALVEO LAV, RT LWR CULTURE, FUNGUS [[id number]] Collected: 11/28/22 1530 Order Status: No result Lab Status: In process Updated: 07/30/22 1701 CULTURE RESPIRATORY W/ GRAM STAIN [[id number]] Collected: 07/30/221529 Order Status: Completed Lab Status: Final result Updated: 08/03/22 1228 Specimen: SITE Spec. Description SITE: BRONCH WASH Special Requests: NO SPECIAL REQUEST Gram Stain Result -- MANY NEUTROPHILS SEEN Gram Stain Result NO ORGANISMS SEEN Culture Result: -- FEW TETE ALBICANS SMEAR,FLUOR STAIN,ACID FAST [[id number]] Collected: 07/30/221529 Order Status: Completed Lab Status: Final result Updated: 08/01/22 2318 ACID FAST SMEAR RESULT SEE NOTE 08/01/2022 11:18 PM Comment: Test Result Flag Unit RefValue Acid Fast Smear For Mycobacterium SOURCE: BRONCHIAL WASHING, BWASH/BAL MIX ACID FAST SMEAR FOR MYCOBACTERIUM FINAL Negative. Test Performed by: [place] [address] Enterer: Brent Alcaraz M.D. Ph.D.; CLIA# [id number] CULTURE TB/AFB OTHER [[id number]] Collected: 07/30/221529 Order Status: No result Lab Status: In process Updated: 07/30/22 170 CULTURE, QUANTITATIVE W/ GRAM STAIN [[id number]] Collected: 07/30/221529 Order Status: Completed Lab Status: Final result Updated: 08/02/22 1457 Specimen: SITE Spec. Description SITE: BAL RLL Special Requests: NO SPECIAL REQUEST Gram Stain Result <10 NEUTROPHILS PER LPF Gram Stain Result <10 EPITHELIAL CELLS PER LPF Gram Stain Result -- RARE GRAM NEGATIVE RODS Culture Result: -- 500 CFU/ML YEAST , ID UPON REQUEST CULTURE, FUNGUS [[id number]] Collected: 07/30/221529 Order Status: Canceled Lab Status: No result SMEAR,FLUOR STAIN,ACID FAST [[id number]] Collected: 07/30/221529 Order Status: Canceled Lab Status: No result CULTURE TB/AFB OTHER [[id number]] Collected: 07/30/221529 Order Status: Canceled Lab Status: No result CULTURE CMV [[id number]] Collected: 07/30/221529 Order Status: Completed Lab Status: Final result Updated: 08/06/22 1738 CYTOMEGALOVIRUS CULTURE REPORT Comment: CMV Rapid Culture SOURCE : BAL RESULT Not Isolated Reference Range: Not Isolated Test Performed by [employer], [address] [place], [place] Adrián Balderas M.D., Ph.D., Director of Laboratories , CLIA [id number] SPECIMEN SOURCE BAL/BWASH MIX IN VTM 1 TO 1 RATIO, FRZ NEG 70 CULTURE HERPES [[id number]] Collected: 07/30/221529 Order Status: Completed Lab Status: Final result Updated: 08/03/22 1542 HERPES SIMPLEX VIRUS CULTURE REPORT Comment: Herpes Simplex Virus Culture SOURCE : BAL/BWASH MIX IN RESULT Not Isolated Reference Range: Not Isolated Test Performed by [employer], [address] [place], [place] Adrián Balderas M.D., Ph.D., Director of Laboratories , CLIA [id number] Specimen Type BAL/BWASH MIX IN VTM 1 TO 1 RATIO, FRZ NEG 70 CULTURE VIRAL RESPIRATORY RAPID [[id number]] Collected: 07/30/221529 Order Status: Completed Lab Status: Final result Updated: 08/05/22 1522 VIRAL RESP RAPID CULTURE W/RFX REPORT Comment: Respiratory Culture Screen SOURCE : BWASH/BAL MIX IN RESULT Negative for Influenza virus, types A and B, Parainfluenza viruses 1,2 # 3, Adenovirus, and Respiratory Syncytial virus. Reference range: Negative Rapid Respiratory Viruses Not indicated Test Performed by [employer], [address] [place], [place] Adrián Balderas M.D., Ph.D., Director of Laboratories , CLIA [id number] Specimen Type BWASH/BAL MIX IN VTM 1 TO 1 RATIO, FRZ NEG 70 CULTURE RESPIRATORY W/ GRAM STAIN [[id number]] Collected: 07/28/221424 Order Status: Completed Lab Status: [...] -- MODERATE PRESUMPTIVE TETE ALBICANS CULTURE, FUNGUS [[id number]] Collected: 07/28/221424 Order Status: Sent Lab Status: In process Updated: 07/31/22 133 Specimen: SPUTUM, EXPECTORATED CULTURE TB/AFB OTHER (TYPE IN COMMENTS) [[id number]] Collected: 07/28/221424 Order Status: Canceled Lab Status: No result Specimen: SPUTUM, EXPECTORATED SMEAR,FLUOR STAIN,ACID FAST [[id number]] Collected: 07/28/221424 Order Status: No result Lab Status: In process Updated: 07/28/22 161 HISTOPLASMA ANTIGEN [[id number]] Collected: 07/28/221423 Order Status: Sent Lab Status: No result Specimen: BLOOD HISTOPLASMA ANTIGEN [[id number]] Collected: 07/28/221423 Order Status: Canceled Lab Status: No result Specimen: BLOOD GLUCOSE, BODY FLUID [[id number]] Order Status: Canceled Lab Status: No result Specimen: PLEURAL FLUID PH BODY FLUID [[id number]] Order Status: Canceled Lab Status: No result Specimen: PLEURAL FLUID CULTURE, BODY FLUID W/ GRAM STAIN [[id number]] Order Status: Canceled Lab Status: No result Specimen: PLEURAL FLUID CULTURE, ANAEROBIC [[id number]] Order Status: Canceled Lab Status: No result Specimen: PLEURAL FLUID CULTURE, FUNGUS [[id number]] Order Status: Canceled Lab Status: No result Specimen: PLEURAL FLUID LDH BODY FLUID [[id number]] Collected: 07/27/22 1030 Order Status: Completed Lab Status: Final result Updated: 07/27/22 152 Specimen: PLEURAL FLUID FLUID LDH >4,000 UNITS/L Comment: REFERENCE RANGE NOT ESTABLISHED FOR THIS BODY FLUID. SOURCE (FLUID) PLEURAL FLUID CELL COUNT W/ DIFF BODY FLUID [[id number]] Collected: 07/27/221029 Order Status: Completed Lab Status: Final result Updated: 07/27/22 1545 Specimen: PLEURAL FLUID SOURCE (FLUID) PLEURAL FLUID FL WBC 144.450 x10'3/uL Comment: REFERENCE RANGE NOT ESTABLISHED FL RBC 0.090 x10'6/uL Comment: REFERENCE RANGE NOT ESTABLISHED DIFFERENTIAL MANUAL DIFFERENTIAL PERFORMED ON CONCENTRATED CYTOSPIN CELLS COUNTED 100 No COUNTED SEGS (FLUID) 97 % LYMPHS (FLUID) 3 % PROTEIN TOTAL FLUID [[id number]] Collected: 07/27/221029 Order Status: Completed Lab Status: Final result Updated: 07/27/22 152 Specimen: PLEURAL FLUID PROTEIN (FLUID) 3.5 G/DL Comment: REFERENCE RANGE NOT ESTABLISHED FOR THIS BODY FLUID. SOURCE (FLUID) PLEURAL FLUID CULTURE, BODY FLUID W/ GRAM STAIN [[id number]] Collected: 07/27/221029 Order Status: Canceled Lab Status: No result Specimen: PLEURAL FLUID CULTURE, ANAEROBIC [[id number]] Collected: 07/27/221029 Order Status: Canceled Lab Status: No result Specimen: PLEURAL FLUID CULTURE, BODY FLUID W/ GRAM STAIN [[id number]] (Susceptibility) Collected: 07/27/221029 Order Status: Completed Lab [...] Sensitive TRIMETH-SULFAMETH. Resistant VANCOMYCIN Sensitive CULTURE, ANAEROBIC [[id number]] (Susceptibility) Collected: 07/27/221029 Order Status: Completed Lab Status: Final result Updated: 08/01/22 0826 Specimen: SITE Spec. Description SITE: RT PLEURAL FLUID Special Requests: NO SPECIAL REQUEST Culture Result: -- FEW MICROAEROPHILIC STREPTOCOCCUS Susceptibility Microaerophilic streptococcus ARLEN (ETEST) CEFOTAXIME 0.023 Sensitive PENICILLIN G 0.008 Sensitive BLASTOMYCES AG MVISTA (TM), EIA [[id number]] Order Status: No result Lab Status: No result Specimen: BLOOD BLASTOMYCES AG MVISTA (TM), EIA [[id number]] Order Status: No result Lab Status: No result Specimen: URINE CORONAVIRUS (COVID 19) PCR - Asymptomatic patients, may be completed at physician discretion [[id number]] Collected: 07/25/222031 Order Status: Canceled Lab Status: No result Specimen: NASOPHARYNGEAL SWAB STREP PNEUMO AG URINE [[id number]] Collected: 07/25/222030 Order Status: Completed Lab Status: [...] Type URINE VOIDED MRSA PCR nares Screening [[id number]] Collected: 07/25/222030 Order Status: Canceled Lab Status: No result Specimen: NASAL CULTURE, BACTERIA, BLOOD [[id number]] Collected: 07/25/221416 Order Status: Completed Lab Status: Final result Updated: 07/30/222144 Specimen: BLOOD Spec. Description BLOOD Special Requests: NO SPECIAL REQUEST Culture Result: NO GROWTH 5 DAYS CULTURE, BACTERIA, BLOOD [[id number]] Collected: 07/25/221415 Order Status: Completed Lab Status: [...] up LANRE WINTER MD 2:04 PM 08/07/2022 NEYMAN SHEET METAL WORKER * Angela Dawkins RN - 08/07/2022 [...] cannot be delivered till Zulema 12 and [facility] plans to see pt Zulema. Let Dr Winter, pt/, pt's ALANNAH Adam know this info. 08/07/22 1015 Interdisciplinary Group Conference Team Members Present Case/Care management;Physician Barriers to Discharge Barriers Not Medically ready Not Medically ready follow up Continue IMC status. On IV antibiotics through 08/30/22. CM spoke with pt/ about [facility] and [facility] about D/C plans possibly for Sat08/08/22. They chose [facility] for HHS agency. Ref sent/called to Shirley at [facility] and Doc jorge to [facility] about referral. NEYMAN SHEET METAL WORKER NEYMAN SHEET METAL WORKER NEYMAN SHEET METAL WORKER * Raquel Wetzel MD - 08/07/2022 [...] Ross Blackburn MD at 08/09/2022 8:49 AM JOURNEYMAN SHEET METAL WORKER NEYMAN SHEET METAL WORKER NEYMAN SHEET METAL WORKER * Merary Langley RN - 08/07/2022 [...] Goal: Absence of venous thromboembolism Outcome: Progressing NEYMAN SHEET METAL WORKER * Maggie Fong MD - 08/06/2022 3:24 PM CSTSummary: [facility] Progress note [facility] PROGRESS NOTE Attending Provider:Dr. 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 diff) -Plan as above discussed with patient, all voiced questions/concerns addressed, voiced agreement and understanding with plan. Thank you for consulting [facility] Infectious Disease. Paulina Dale NP 08/06/22 [facility] ATTENDING I, MAGGIE FONG MD, performed an examination of the patient and discussed the management with the SPINNING ROOM WORKER. I reviewed the SPINNING ROOM WORKER's progress note and agree with the findings [...] Tracy Yo MD, 100 mg at 08/05/222051 NEYMAN SHEET METAL WORKER NEYMAN SHEET METAL WORKER NEYMAN SHEET METAL WORKER * Ilana Dove RRT - 08/06/2022 2:45 [...] Charge $ Home Oxygen Evaluation Charge Yes NEYMAN SHEET METAL WORKER * Nimisha Meyer RD - 08/06/2022 [...] Start nutrition assessment NIMISHA MEYER RD, LDN NEYMAN SHEET METAL WORKER * Lanre Winter MD - 08/06/2022 [...] Procedure Component Value Units Date/Time CULTURE, ANAEROBIC [[id number]] Collected: 08/02/22837 Order Status: Completed Lab Status: Preliminary result Updated: 08/03/22 1524 Specimen: TISSUE from OTHER (type in comments) Spec. Description TISSUE: RT DECORTICATION TISU Special Requests: NO SPECIAL REQUEST Culture Result: -- NO ANAEROBES ISOLATED TO DATE CULTURE TB/AFB OTHER (TYPE IN COMMENTS) [[id number]] Collected: 08/02/22837 Order Status: Sent Lab Status: In process Updated: 08/02/22 1009 Specimen: TISSUE from OTHER (type in comments) CULTURE, FUNGUS [[id number]] Collected: 08/02/22837 Order Status: Sent Lab Status: In process Updated: 08/02/22 1010 Specimen: TISSUE from OTHER (type in comments) CULTURE, TISSUE W/GRAM STAIN [[id number]] Collected: 08/02/22837 Order Status: Completed Lab Status: Preliminary result Updated: 08/06/22 1203 Specimen: TISSUE from OTHER (type in comments) Spec. Description TISSUE: RT DECORTICATION TISU Special Requests: NO SPECIAL REQUEST Gram Stain Result -- MODERATE NEUTROPHILS SEEN Gram Stain Result NO ORGANISMS SEEN Culture Result: NO GROWTH 4 DAYS SMEAR,FLUOR STAIN,ACID FAST [[id number]] Collected: 08/02/22837 Order Status: Completed Lab Status: Final result Updated: 08/05/221944 ACID FAST SMEAR RESULT SEE NOTE 08/05/2022 07:45 PM Comment: Test Result Flag Unit RefValue Acid Fast Smear For Mycobacterium SOURCE: LUNG, RIGHT, RT DECORTICATION TIS ACID FAST SMEAR FOR MYCOBACTERIUM FINAL Negative. Test Performed by: [facility] [address] [address] Enterer: Brent Alcaraz M.D. Ph.D.; CLIA# [id number] CULTURE, FUNGUS [[id number]] Order Status: No result Lab Status: No result Specimen: BRONCHOALVEO LAV, RT LWR CULTURE TB/AFB OTHER (TYPE IN COMMENTS) [[id number]] Order Status: No result Lab Status: No result Specimen: BRONCHOALVEO LAV, RT LWR SMEAR,FLUOR STAIN,ACID FAST [[id number]] Order Status: No result Lab Status: No result Specimen: BRONCHOALVEO LAV, RT LWR CULTURE VIRAL RESPIRATORY RAPID [[id number]] Order Status: No result Lab Status: No result Specimen: BRONCHOALVEO LAV, RT LWR CULTURE RESPIRATORY W/ GRAM STAIN [[id number]] Order Status: No result Lab Status: No result Specimen: BRONCHIAL WASHING CULTURE, FUNGUS [[id number]] Order Status: No result Lab Status: No result Specimen: BRONCHIAL WASHING CULTURE TB/AFB OTHER (TYPE IN COMMENTS) [[id number]] Order Status: No result Lab Status: No result Specimen: BRONCHIAL WASHING SMEAR,FLUOR STAIN,ACID FAST [[id number]] Order Status: No result Lab Status: No result Specimen: BRONCHIAL WASHING CULTURE VIRAL RESPIRATORY RAPID [[id number]] Order Status: No result Lab Status: No result Specimen: BRONCHIAL WASHING CULTURE, QUANTITATIVE W/ GRAM STAIN [[id number]] Order Status: No result Lab Status: No result Specimen: BRONCHOALVEO LAV, RT LWR CULTURE, FUNGUS [[id number]] Collected: 07/30/221529 Order Status: No result Lab Status: In process Updated: 07/30/22 1701 CULTURE RESPIRATORY W/ GRAM STAIN [[id number]] Collected: 07/30/22 153 Order Status: Completed Lab Status: Final result Updated: 08/03/22 1228 Specimen: SITE Spec. Description SITE: BRONCH WASH Special Requests: NO SPECIAL REQUEST Gram Stain Result -- MANY NEUTROPHILS SEEN Gram Stain Result NO ORGANISMS SEEN Culture Result: -- FEW TETE ALBICANS SMEAR,FLUOR STAIN,ACID FAST [[id number]] Collected: 07/30/22 1530 Order Status: Completed Lab Status: Final result Updated: 08/01/22 2318 ACID FAST SMEAR RESULT SEE NOTE 08/01/2022 11:18 PM Comment: Test Result Flag Unit RefValue Acid Fast Smear For Mycobacterium SOURCE: BRONCHIAL WASHING, BWASH/BAL MIX ACID FAST SMEAR FOR MYCOBACTERIUM FINAL Negative. Test Performed by: [address] [address] Enterer: Brent Alcaraz M.D. Ph.D.; CLIA# [id number] CULTURE TB/AFB OTHER [[id number]] Collected: 07/30/221529 Order Status: No result Lab Status: In process Updated: 07/30/22 1704 CULTURE, QUANTITATIVE W/ GRAM STAIN [[id number]] Collected: 07/30/221529 Order Status: Completed Lab Status: Final result Updated: 08/02/22 1457 Specimen: SITE Spec. Description SITE: BAL RLL Special Requests: NO SPECIAL REQUEST Gram Stain Result <10 NEUTROPHILS PER LPF Gram Stain Result <10 EPITHELIAL CELLS PER LPF Gram Stain Result -- RARE GRAM NEGATIVE RODS Culture Result: -- 500 CFU/ML YEAST , ID UPON REQUEST CULTURE, FUNGUS [[id number]] Collected: 07/30/221529 Order Status: Canceled Lab Status: No result SMEAR,FLUOR STAIN,ACID FAST [[id number]] Collected: 07/30/221529 Order Status: Canceled Lab Status: No result CULTURE TB/AFB OTHER [[id number]] Collected: 07/30/221529 Order Status: Canceled Lab Status: No result CULTURE CMV [[id number]] Collected: 07/30/221529 Order Status: No result Lab Status: In process Updated: 07/31/22 1431 CULTURE HERPES [[id number]] Collected: 07/30/221529 Order Status: Completed Lab Status: Final result Updated: 08/03/22 1542 HERPES SIMPLEX VIRUS CULTURE REPORT Comment: Herpes Simplex Virus Culture SOURCE : BAL/BWASH MIX IN RESULT Not Isolated Reference Range: Not Isolated Test Performed by [facility], [address] [place], [place] Adrián Balderas M.D., Ph.D., Director of Laboratories , CLIA [id number] Specimen Type BAL/BWASH MIX IN VTM 1 TO 1 RATIO, FRZ NEG 70 CULTURE VIRAL RESPIRATORY RAPID [[id number]] Collected: 07/30/22 1530 Order Status: Completed Lab Status: Final result Updated: 08/05/22 1522 VIRAL RESP RAPID CULTURE W/RFX REPORT Comment: Respiratory Culture Screen SOURCE : BWASH/BAL MIX IN RESULT Negative for Influenza virus, types A and B, Parainfluenza viruses 1,2 # 3, Adenovirus, and Respiratory Syncytial virus. Reference range: Negative Rapid Respiratory Viruses Not indicated Test Performed by [employer], [facility], [address] [place] [address] Adrián Balderas M.D., Ph.D., Director of Laboratories , CLIA [id number] Specimen Type BWASH/BAL MIX IN VTM 1 TO 1 RATIO, FRZ NEG 70 CULTURE RESPIRATORY W/ GRAM STAIN [[id number]] Collected: 07/28/221424 Order Status: Completed Lab Status: [...] -- MODERATE PRESUMPTIVE TETE ALBICANS CULTURE, FUNGUS [[id number]] Collected: 07/28/221424 Order Status: Sent Lab Status: In process Updated: 07/31/22 1336 Specimen: SPUTUM, EXPECTORATED CULTURE TB/AFB OTHER (TYPE IN COMMENTS) [[id number]] Collected: 07/28/221424 Order Status: Canceled Lab Status: No result Specimen: SPUTUM, EXPECTORATED SMEAR,FLUOR STAIN,ACID FAST [[id number]] Collected: 07/28/221424 Order Status: No result Lab Status: In process Updated: 07/28/22 1612 HISTOPLASMA ANTIGEN [[id number]] Collected: 07/28/22 142 Order Status: Sent Lab Status: No result Specimen: BLOOD HISTOPLASMA ANTIGEN [[id number]] Collected: 07/28/221423 Order Status: Canceled Lab Status: No result Specimen: BLOOD GLUCOSE, BODY FLUID [[id number]] Order Status: Canceled Lab Status: No result Specimen: PLEURAL FLUID PH BODY FLUID [[id number]] Order Status: Canceled Lab Status: No result Specimen: PLEURAL FLUID CULTURE, BODY FLUID W/ GRAM STAIN [[id number]] Order Status: Canceled Lab Status: No result Specimen: PLEURAL FLUID CULTURE, ANAEROBIC [[id number]] Order Status: Canceled Lab Status: No result Specimen: PLEURAL FLUID CULTURE, FUNGUS [[id number]] Order Status: Canceled Lab Status: No result Specimen: PLEURAL FLUID LDH BODY FLUID [[id number]] Collected: 07/27/221029 Order Status: Completed Lab Status: Final result Updated: 07/27/22 152 Specimen: PLEURAL FLUID FLUID LDH >4,000 UNITS/L Comment: REFERENCE RANGE NOT ESTABLISHED FOR THIS BODY FLUID. SOURCE (FLUID) PLEURAL FLUID CELL COUNT W/ DIFF BODY FLUID [[id number]] Collected: 07/27/221029 Order Status: Completed Lab Status: Final result Updated: 07/27/22 1545 Specimen: PLEURAL FLUID SOURCE (FLUID) PLEURAL FLUID FL WBC 144.450 x10'3/uL Comment: REFERENCE RANGE NOT ESTABLISHED FL RBC 0.090 x10'6/uL Comment: REFERENCE RANGE NOT ESTABLISHED DIFFERENTIAL MANUAL DIFFERENTIAL PERFORMED ON CONCENTRATED CYTOSPIN CELLS COUNTED 100 No COUNTED SEGS (FLUID) 97 % LYMPHS (FLUID) 3 % PROTEIN TOTAL FLUID [[id number]] Collected: 07/27/22 1030 Order Status: Completed Lab Status: Final result Updated: 07/27/22 152 Specimen: PLEURAL FLUID PROTEIN (FLUID) 3.5 G/DL Comment: REFERENCE RANGE NOT ESTABLISHED FOR THIS BODY FLUID. SOURCE (FLUID) PLEURAL FLUID CULTURE, BODY FLUID W/ GRAM STAIN [[id number]] Collected: 07/27/22 103 Order Status: Canceled Lab Status: No result Specimen: PLEURAL FLUID CULTURE, ANAEROBIC [[id number]] Collected: 11/25/22 1030 Order Status: Canceled Lab Status: No result Specimen: PLEURAL FLUID CULTURE, BODY FLUID W/ GRAM STAIN [[id number]] (Susceptibility) Collected: 07/27/22 103 Order Status: Completed [...] Sensitive TRIMETH-SULFAMETH. Resistant VANCOMYCIN Sensitive CULTURE, ANAEROBIC [[id number]] (Susceptibility) Collected: 07/27/22 1030 Order Status: Completed Lab Status: Final result Updated: 08/01/22 08 Specimen: SITE Spec. Description SITE: RT PLEURAL FLUID Special Requests: NO SPECIAL REQUEST Culture Result: -- FEW MICROAEROPHILIC STREPTOCOCCUS Susceptibility Microaerophilic streptococcus ARLEN (ETEST) CEFOTAXIME 0.023 Sensitive PENICILLIN G 0.008 Sensitive BLASTOMYCES AG MVISTA (TM), EIA [[id number]] Order Status: No result Lab Status: No result Specimen: BLOOD BLASTOMYCES AG MVISTA (TM), EIA [[id number]] Order Status: No result Lab Status: No result Specimen: URINE CORONAVIRUS (COVID 19) PCR - Asymptomatic patients, may be completed at physician discretion [[id number]] Collected: 07/25/222031 Order Status: Canceled Lab Status: No result Specimen: NASOPHARYNGEAL SWAB STREP PNEUMO AG URINE [[id number]] Collected: 07/25/222030 Order Status: Completed Lab Status: [...] Type URINE VOIDED MRSA PCR nares Screening [[id number]] Collected: 07/25/222030 Order Status: Canceled Lab Status: No result Specimen: NASAL CULTURE, BACTERIA, BLOOD [[id number]] Collected: 07/25/22 1417 Order Status: Completed Lab Status: Final result Updated: 07/30/22 214 Specimen: BLOOD Spec. Description BLOOD Special Requests: NO SPECIAL REQUEST Culture Result: NO GROWTH 5 DAYS CULTURE, BACTERIA, BLOOD [[id number]] Collected: 07/25/22 1416 Order Status: Completed Lab [...] with the following history as recorded in [facility]: Problem List Items Addressed This Visit None [...] ID LANRE WINTER MD 2:03 PM 08/06/2022 NEYMAN SHEET METAL WORKER * Adali Henry, AVIAN KEEPER - 08/06/2022 11:37 AM CST [facility] PULMONOLOGY??PROGRESS??NOTE [...] - Can follow with Dr. Pineda in [facility] after discharge ([phone]). Dr. Pineda will be in [place] 08/08 and 08/22. Patient will call clinic and see which days have an opening. - ID following for antibiotic management. ?? Thank you for the consult. We will sign off. Call back with questions or concerns. Adali Henry, AVIAN KEEPER 08/06/2022 SUBJECTIVE Patient doing well. Denies shortness [...] Patti Pineda MD at 08/06/2022 6:25 PM JOURNEYMAN SHEET METAL WORKER NEYMAN SHEET METAL WORKER NEYMAN SHEET METAL WORKER NEYMAN SHEET METAL WORKER Associated attestation - Patti Pineda MD - 08/06/2022 6:25 PM JOURNEYMAN SHEET METAL WORKER Seen by INTERVENTIONAL CARDIOLOGIST Has COPD, 50-pk year history smoking who [...] assistance. Maria Antonia Quiñones PharmD Phone number: [phone] 08/06/2022 10:45 AM NEYMAN SHEET METAL WORKER * Suzi Irby RN - 08/06/2022 10:24 AM CSTSummary: IDR 08/06/22 1003 Interdisciplinary Group Information Next Conference Date 08/07/22 Interdisciplinary Group Conference Team Members Present Physician;Case/Care management;Nursing (Dr. Winter-[facility]) Barriers to Discharge Barriers Not Medically ready Not Medically ready follow up planned d/c chest tube, waiting on ID final recs, home O2 eval, keep IMC NEYMAN SHEET METAL WORKER * Ross Blackburn MD - 08/06/2022 9:40 AM CST In bathroom cleaning up. No leak seen. Small output. Maybe a small effusion. Plan to remove chest tube. NEYMAN SHEET METAL WORKER * Anisa B Drainer, BUTCHER ASSISTANT - 08/06/2022 8:44 AM CST OT Treatment Discharge Recommendation: home with assistance Activity Recommendation for business employment specialist: Per nursing discretion, OT signing off. 08/06/22822 Therapy Visit OT Received On 08/06/22 Reason for admission Update: Pt had VATS with R decorication on 08/02 with R chest tube placement (CT to suction). Discussed with Ana MOYA who okayed proposal lead writer proceed with POC. Pt is a [...] Per eval, pt lives with in a [facility] with no PRANAY. Pt has a walk in shower with shower chair, and gbs. Pt has a tall toilet with sink closeby. Pt has a 2ww, and cane but was notusing at home. Pt reports independence SOCIAL SERVICES ASSISTANT with ADLs, IADLS, and was driving. Pt [...] Name: Ray Phillips Primary Language of learner: Greek Patient was educated on precautions exercises transfers ADLs balance bed mobility equipment therapy plan safety energy conservation adaptive skills. Education was completed one to one this date. Preference of learning new concepts one to one Barriers to education this date were none. Response to education this date verbalized understanding. NEYMAN SHEET METAL WORKER * Maria Antonia Quiñones, Zachery - 08/06/2022 [...] Consult per Dr. Srinath Quiñones, PharmD Phone: [phone] 08/06/2022 8:22 AM NEYMAN SHEET METAL WORKER * Lanre Winter MD - 08/05/2022 [...] Procedure Component Value Units Date/Time CULTURE, ANAEROBIC [[id number]] Collected: 08/02/22837 Order Status: Completed Lab Status: Preliminary result Updated: 08/03/22 1524 Specimen: TISSUE from OTHER (type in comments) Spec. Description TISSUE: RT DECORTICATION TISU Special Requests: NO SPECIAL REQUEST Culture Result: -- NO ANAEROBES ISOLATED TO DATE CULTURE TB/AFB OTHER (TYPE IN COMMENTS) [[id number]] Collected: 08/02/22837 Order Status: Sent Lab Status: In process Updated: 08/02/22 1009 Specimen: TISSUE from OTHER (type in comments) CULTURE, FUNGUS [[id number]] Collected: 08/02/22837 Order Status: Sent Lab Status: In process Updated: 08/02/22 1010 Specimen: TISSUE from OTHER (type in comments) CULTURE, TISSUE W/GRAM STAIN [[id number]] Collected: 08/02/22837 Order Status: Completed Lab Status: Preliminary result Updated: 08/05/22 1202 Specimen: TISSUE from OTHER (type in comments) Spec. Description TISSUE: RT DECORTICATION TISU Special Requests: NO SPECIAL REQUEST Gram Stain Result -- MODERATE NEUTROPHILS SEEN Gram Stain Result NO ORGANISMS SEEN Culture Result: NO GROWTH 3 DAYS SMEAR,FLUOR STAIN,ACID FAST [[id number]] Collected: 08/02/22837 Order Status: No result Lab Status: In process Updated: 08/02/22 1012 CULTURE, FUNGUS [[id number]] Order Status: No result Lab Status: No result Specimen: BRONCHOALVEO LAV, RT LWR CULTURE TB/AFB OTHER (TYPE IN COMMENTS) [[id number]] Order Status: No result Lab Status: No result Specimen: BRONCHOALVEO LAV, RT LWR SMEAR,FLUOR STAIN,ACID FAST [[id number]] Order Status: No result Lab Status: No result Specimen: BRONCHOALVEO LAV, RT LWR CULTURE VIRAL RESPIRATORY RAPID [[id number]] Order Status: No result Lab Status: No result Specimen: BRONCHOALVEO LAV, RT LWR CULTURE RESPIRATORY W/ GRAM STAIN [[id number]] Order Status: No result Lab Status: No result Specimen: BRONCHIAL WASHING CULTURE, FUNGUS [[id number]] Order Status: No result Lab Status: No result Specimen: BRONCHIAL WASHING CULTURE TB/AFB OTHER (TYPE IN COMMENTS) [[id number]] Order Status: No result Lab Status: No result Specimen: BRONCHIAL WASHING SMEAR,FLUOR STAIN,ACID FAST [[id number]] Order Status: No result Lab Status: No result Specimen: BRONCHIAL WASHING CULTURE VIRAL RESPIRATORY RAPID [[id number]] Order Status: No result Lab Status: No result Specimen: BRONCHIAL WASHING CULTURE, QUANTITATIVE W/ GRAM STAIN [[id number]] Order Status: No result Lab Status: No result Specimen: BRONCHOALVEO LAV, RT LWR CULTURE, FUNGUS [[id number]] Collected: 07/30/22 1530 Order Status: No result Lab Status: In process Updated: 07/30/22 1701 CULTURE RESPIRATORY W/ GRAM STAIN [[id number]] Collected: 11/28/22 1530 Order Status: Completed Lab Status: Final result Updated: 08/03/22 1228 Specimen: SITE Spec. Description SITE: BRONCH WASH Special Requests: NO SPECIAL REQUEST Gram Stain Result -- MANY NEUTROPHILS SEEN Gram Stain Result NO ORGANISMS SEEN Culture Result: -- FEW TETE ALBICANS SMEAR,FLUOR STAIN,ACID FAST [[id number]] Collected: 07/30/221529 Order Status: Completed Lab Status: Final result Updated: 08/01/22 2318 ACID FAST SMEAR RESULT SEE NOTE 08/01/2022 11:18 PM Comment: Test Result Flag Unit RefValue Acid Fast Smear For Mycobacterium SOURCE: BRONCHIAL WASHING, BWASH/BAL MIX ACID FAST SMEAR FOR MYCOBACTERIUM FINAL Negative. Test Performed by: [place] [address] Enterer: Brent Alcaraz M.D. Ph.D.; CLIA# [id number] CULTURE TB/AFB OTHER [[id number]] Collected: 07/30/221529 Order Status: No result Lab Status: In process Updated: 07/30/22 1704 CULTURE, QUANTITATIVE W/ GRAM STAIN [[id number]] Collected: 07/30/221529 Order Status: Completed Lab Status: Final result Updated: 08/02/22 1457 Specimen: SITE Spec. Description SITE: BAL RLL Special Requests: NO SPECIAL REQUEST Gram Stain Result <10 NEUTROPHILS PER LPF Gram Stain Result <10 EPITHELIAL CELLS PER LPF Gram Stain Result -- RARE GRAM NEGATIVE RODS Culture Result: -- 500 CFU/ML YEAST , ID UPON REQUEST CULTURE, FUNGUS [[id number]] Collected: 07/30/221529 Order Status: Canceled Lab Status: No result SMEAR,FLUOR STAIN,ACID FAST [[id number]] Collected: 07/30/221529 Order Status: Canceled Lab Status: No result CULTURE TB/AFB OTHER [[id number]] Collected: 07/30/221529 Order Status: Canceled Lab Status: No result CULTURE CMV [[id number]] Collected: 07/30/221529 Order Status: No result Lab Status: In process Updated: 07/31/22 1431 CULTURE HERPES [[id number]] Collected: 07/30/22 153 Order Status: Completed Lab Status: Final result Updated: 08/03/22 1542 HERPES SIMPLEX VIRUS CULTURE REPORT Comment: Herpes Simplex Virus Culture SOURCE : BAL/BWASH MIX IN RESULT Not Isolated Reference Range: Not Isolated Test Performed by [facility] [employer] [facility], [address] [place] [address] Adrián Balderas M.D., Ph.D., Director of Laboratories , [facility] [id number] Specimen Type BAL/BWASH MIX IN VTM 1 TO 1 RATIO, FRZ NEG 70 CULTURE VIRAL RESPIRATORY RAPID [[id number]] Collected: 07/30/221529 Order Status: No result Lab Status: In process Updated: 07/31/22 143 CULTURE RESPIRATORY W/ GRAM STAIN [[id number]] Collected: 07/28/221424 Order Status: Completed Lab Status: [...] -- MODERATE PRESUMPTIVE TETE ALBICANS CULTURE, FUNGUS [[id number]] Collected: 07/28/221424 Order Status: Sent Lab Status: In process Updated: 07/31/22 1336 Specimen: SPUTUM, EXPECTORATED CULTURE TB/AFB OTHER (TYPE IN COMMENTS) [[id number]] Collected: 07/28/221424 Order Status: Canceled Lab Status: No result Specimen: SPUTUM, EXPECTORATED SMEAR,FLUOR STAIN,ACID FAST [[id number]] Collected: 07/28/221424 Order Status: No result Lab Status: In process Updated: 07/28/22 1612 HISTOPLASMA ANTIGEN [[id number]] Collected: 07/28/221423 Order Status: Sent Lab Status: No result Specimen: BLOOD HISTOPLASMA ANTIGEN [[id number]] Collected: 07/28/22 1424 Order Status: Canceled Lab Status: No result Specimen: BLOOD GLUCOSE, BODY FLUID [[id number]] Order Status: Canceled Lab Status: No result Specimen: PLEURAL FLUID PH BODY FLUID [[id number]] Order Status: Canceled Lab Status: No result Specimen: PLEURAL FLUID CULTURE, BODY FLUID W/ GRAM STAIN [[id number]] Order Status: Canceled Lab Status: No result Specimen: PLEURAL FLUID CULTURE, ANAEROBIC [[id number]] Order Status: Canceled Lab Status: No result Specimen: PLEURAL FLUID CULTURE, FUNGUS [[id number]] Order Status: Canceled Lab Status: No result Specimen: PLEURAL FLUID LDH BODY FLUID [[id number]] Collected: 07/27/221029 Order Status: Completed Lab Status: Final result Updated: 07/27/221521 Specimen: PLEURAL FLUID FLUID LDH >4,000 UNITS/L Comment: REFERENCE RANGE NOT ESTABLISHED FOR THIS BODY FLUID. SOURCE (FLUID) PLEURAL FLUID CELL COUNT W/ DIFF BODY FLUID [[id number]] Collected: 07/27/221029 Order Status: Completed Lab Status: Final result Updated: 07/27/22 154 Specimen: PLEURAL FLUID SOURCE (FLUID) PLEURAL FLUID FL WBC 144.450 x10'3/uL Comment: REFERENCE RANGE NOT ESTABLISHED FL RBC 0.090 x10'6/uL Comment: REFERENCE RANGE NOT ESTABLISHED DIFFERENTIAL MANUAL DIFFERENTIAL PERFORMED ON CONCENTRATED CYTOSPIN CELLS COUNTED 100 No COUNTED SEGS (FLUID) 97 % LYMPHS (FLUID) 3 % PROTEIN TOTAL FLUID [[id number]] Collected: 07/27/221029 Order Status: Completed Lab Status: Final result Updated: 07/27/221521 Specimen: PLEURAL FLUID PROTEIN (FLUID) 3.5 G/DL Comment: REFERENCE RANGE NOT ESTABLISHED FOR THIS BODY FLUID. SOURCE (FLUID) PLEURAL FLUID CULTURE, BODY FLUID W/ GRAM STAIN [[id number]] Collected: 07/27/221029 Order Status: Canceled Lab Status: No result Specimen: PLEURAL FLUID CULTURE, ANAEROBIC [[id number]] Collected: 07/27/221029 Order Status: Canceled Lab Status: No result Specimen: PLEURAL FLUID CULTURE, BODY FLUID W/ GRAM STAIN [[id number]] (Susceptibility) Collected: 07/27/221029 Order Status: Completed Lab [...] Sensitive TRIMETH-SULFAMETH. Resistant VANCOMYCIN Sensitive CULTURE, ANAEROBIC [[id number]] (Susceptibility) Collected: 07/27/22 1030 Order Status: Completed Lab Status: Final result Updated: 08/01/22 08 Specimen: SITE Spec. Description SITE: RT PLEURAL FLUID Special Requests: NO SPECIAL REQUEST Culture Result: -- FEW MICROAEROPHILIC STREPTOCOCCUS Susceptibility Microaerophilic streptococcus ARLEN (ETEST) CEFOTAXIME 0.023 Sensitive PENICILLIN G 0.008 Sensitive BLASTOMYCES AG MVISTA (TM), EIA [[id number]] Order Status: No result Lab Status: No result Specimen: BLOOD BLASTOMYCES AG MVISTA (TM), EIA [[id number]] Order Status: No result Lab Status: No result Specimen: URINE CORONAVIRUS (COVID 19) PCR - Asymptomatic patients, may be completed at physician discretion [[id number]] Collected: 07/25/222031 Order Status: Sent Lab Status: No result Specimen: NASOPHARYNGEAL SWAB STREP PNEUMO AG URINE [[id number]] Collected: 07/25/222030 Order Status: Completed Lab Status: [...] Type URINE VOIDED MRSA PCR nares Screening [[id number]] Collected: 07/25/222030 Order Status: Canceled Lab Status: No result Specimen: NASAL CULTURE, BACTERIA, BLOOD [[id number]] Collected: 07/25/221416 Order Status: Completed Lab Status: Final result Updated: 07/30/222144 Specimen: BLOOD Spec. Description BLOOD Special Requests: NO SPECIAL REQUEST Culture Result: NO GROWTH 5 DAYS CULTURE, BACTERIA, BLOOD [[id number]] Collected: 07/25/22 141 Order Status: Completed Lab [...] with the following history as recorded in [facility]: Problem List Items Addressed This Visit None [...] tomorrow LANRE WINTER MD 2:41 PM 08/05/2022 NEYMAN SHEET METAL WORKER * Karla M Yash, SOCIAL SERVICES ASSISTANT - 08/05/2022 12:19 PM CST PT Treatment Discharge Recommendation: home with assistance for IADL's Activity Recommendation for business employment specialist: defer to nursing-PT signing off 08/05/22 0850 Therapy Visit Ordering Provider Tracy Yo MD Subjective Upon entering room 742, patient was in supine and agreeable to therapy. Reason for admission Update: Pt had VATS with R decorication on 08/02 with R chest tube placement (CT to suction). Discussed with Ana MOYA who okayed proposal lead writer proceed with POC. Pt is a [...] was notusing at home. Pt reports independence SOCIAL SERVICES ASSISTANT with ADLs, IADLS, and was driving. Pt [...] this date as patient demonstrates mod I [id number]. Wayne has met all acute PT goals [...] Name: Ray Phillips Primary Language of learner: Greek Patient was educated on transfers balance therapy plan gait safety. Education was completed one to one verbal hands-on demonstration this date. Preference of learning new concepts one to one verbal hands-on demonstration Barriers to education this date were none. Response to education this date verbalized understanding. NEYMAN SHEET METAL WORKER * Patel Kelsey MD - 08/05/2022 [...] discharge. Can follow with Dr. Pineda in [facility] after discharge ([phone]). - ID following for antibiotics management. ?? [...] Katie Paula MD at 08/05/2022 1:52 PM JOURNEYMAN SHEET METAL WORKER NEYMAN SHEET METAL WORKER NEYMAN SHEET METAL WORKER Associated attestation - Katie Paula MD - 08/05/2022 1:52 PM JOURNEYMAN SHEET METAL WORKER [facility] Pulmonary and Critical Care Medicine [...] Brent Lemos MD at 08/05/2022 11:35 AM JOURNEYMAN SHEET METAL WORKER NEYMAN SHEET METAL WORKER NEYMAN SHEET METAL WORKER * Ann Mcdonnell, PharmD - 08/05/2022 [...] Consult per Dr. Srinath MCDONNELL, PharmPatt Phone: [phone] 08/05/2022 10:42 AM NEYMAN SHEET METAL WORKER * Lanre Winter MD - 08/04/2022 [...] Procedure Component Value Units Date/Time CULTURE, ANAEROBIC [[id number]] Collected: 08/02/22837 Order Status: Completed Lab Status: Preliminary result Updated: 08/03/22 1524 Specimen: TISSUE from OTHER (type in comments) Spec. Description TISSUE: RT DECORTICATION TISU Special Requests: NO SPECIAL REQUEST Culture Result: -- NO ANAEROBES ISOLATED TO DATE CULTURE TB/AFB OTHER (TYPE IN COMMENTS) [[id number]] Collected: 08/02/22837 Order Status: Sent Lab Status: In process Updated: 08/02/22 1009 Specimen: TISSUE from OTHER (type in comments) CULTURE, FUNGUS [[id number]] Collected: 08/02/22837 Order Status: Sent Lab Status: In process Updated: 08/02/22 1010 Specimen: TISSUE from OTHER (type in comments) CULTURE, TISSUE W/GRAM STAIN [[id number]] Collected: 08/02/22837 Order Status: Completed Lab Status: Preliminary result Updated: 08/03/22 1525 Specimen: TISSUE from OTHER (type in comments) Spec. Description TISSUE: RT DECORTICATION TISU Special Requests: NO SPECIAL REQUEST Gram Stain Result -- MODERATE NEUTROPHILS SEEN Gram Stain Result NO ORGANISMS SEEN Culture Result: NO GROWTH 1 DAY SMEAR,FLUOR STAIN,ACID FAST [[id number]] Collected: 08/02/22837 Order Status: No result Lab Status: In process Updated: 08/02/22 1012 CULTURE, FUNGUS [[id number]] Order Status: No result Lab Status: No result Specimen: BRONCHOALVEO LAV, RT LWR CULTURE TB/AFB OTHER (TYPE IN COMMENTS) [[id number]] Order Status: No result Lab Status: No result Specimen: BRONCHOALVEO LAV, RT LWR SMEAR,FLUOR STAIN,ACID FAST [[id number]] Order Status: No result Lab Status: No result Specimen: BRONCHOALVEO LAV, RT LWR CULTURE VIRAL RESPIRATORY RAPID [[id number]] Order Status: No result Lab Status: No result Specimen: BRONCHOALVEO LAV, RT LWR CULTURE RESPIRATORY W/ GRAM STAIN [[id number]] Order Status: No result Lab Status: No result Specimen: BRONCHIAL WASHING CULTURE, FUNGUS [[id number]] Order Status: No result Lab Status: No result Specimen: BRONCHIAL WASHING CULTURE TB/AFB OTHER (TYPE IN COMMENTS) [[id number]] Order Status: No result Lab Status: No result Specimen: BRONCHIAL WASHING SMEAR,FLUOR STAIN,ACID FAST [[id number]] Order Status: No result Lab Status: No result Specimen: BRONCHIAL WASHING CULTURE VIRAL RESPIRATORY RAPID [[id number]] Order Status: No result Lab Status: No result Specimen: BRONCHIAL WASHING CULTURE, QUANTITATIVE W/ GRAM STAIN [[id number]] Order Status: No result Lab Status: No result Specimen: BRONCHOALVEO LAV, RT LWR CULTURE, FUNGUS [[id number]] Collected: 07/30/221529 Order Status: No result Lab Status: In process Updated: 07/30/22 1701 CULTURE RESPIRATORY W/ GRAM STAIN [[id number]] Collected: 07/30/221529 Order Status: Completed Lab Status: Final result Updated: 08/03/22 1228 Specimen: SITE Spec. Description SITE: BRONCH WASH Special Requests: NO SPECIAL REQUEST Gram Stain Result -- MANY NEUTROPHILS SEEN Gram Stain Result NO ORGANISMS SEEN Culture Result: -- FEW TETE ALBICANS SMEAR,FLUOR STAIN,ACID FAST [[id number]] Collected: 07/30/221529 Order Status: Completed Lab Status: Final result Updated: 08/01/22 2318 ACID FAST SMEAR RESULT SEE NOTE 08/01/2022 11:18 PM Comment: Test Result Flag Unit RefValue Acid Fast Smear For Mycobacterium SOURCE: BRONCHIAL WASHING, BWASH/BAL MIX ACID FAST SMEAR FOR MYCOBACTERIUM FINAL Negative. Test Performed by: [address] [address] Enterer: Brent Alcaraz M.D. Ph.D.; CLIA# [id number] CULTURE TB/AFB OTHER [[id number]] Collected: 07/30/221529 Order Status: No result Lab Status: In process Updated: 07/30/22 1704 CULTURE, QUANTITATIVE W/ GRAM STAIN [[id number]] Collected: 07/30/221529 Order Status: Completed Lab Status: Final result Updated: 08/02/22 1457 Specimen: SITE Spec. Description SITE: BAL RLL Special Requests: NO SPECIAL REQUEST Gram Stain Result <10 NEUTROPHILS PER LPF Gram Stain Result <10 EPITHELIAL CELLS PER LPF Gram Stain Result -- RARE GRAM NEGATIVE RODS Culture Result: -- 500 CFU/ML YEAST , ID UPON REQUEST CULTURE, FUNGUS [[id number]] Collected: 07/30/221529 Order Status: Canceled Lab Status: No result SMEAR,FLUOR STAIN,ACID FAST [[id number]] Collected: 07/30/221529 Order Status: Canceled Lab Status: No result CULTURE TB/AFB OTHER [[id number]] Collected: 07/30/221529 Order Status: Canceled Lab Status: No result CULTURE CMV [[id number]] Collected: 07/30/221529 Order Status: No result Lab Status: In process Updated: 07/31/22 1431 CULTURE HERPES [[id number]] Collected: 07/30/221529 Order Status: Completed Lab Status: Final result Updated: 08/03/22 1542 HERPES SIMPLEX VIRUS CULTURE REPORT Comment: Herpes Simplex Virus Culture SOURCE : BAL/BWASH MIX IN RESULT Not Isolated Reference Range: Not Isolated Test Performed by [employer], [employer] [facility], [address] [place] [address] Adrián Balderas M.D., Ph.D., Director of Laboratories , CLIA [id number] Specimen Type BAL/BWASH MIX IN VTM 1 TO 1 RATIO, FRZ NEG 70 CULTURE VIRAL RESPIRATORY RAPID [[id number]] Collected: 07/30/221529 Order Status: No result Lab Status: In process Updated: 07/31/22 1435 CULTURE RESPIRATORY W/ GRAM STAIN [[id number]] Collected: 07/28/221424 Order Status: Completed Lab Status: [...] -- MODERATE PRESUMPTIVE TETE ALBICANS CULTURE, FUNGUS [[id number]] Collected: 07/28/221424 Order Status: Sent Lab Status: In process Updated: 07/31/22 133 Specimen: SPUTUM, EXPECTORATED CULTURE TB/AFB OTHER (TYPE IN COMMENTS) [[id number]] Collected: 07/28/221424 Order Status: Sent Lab Status: No result Specimen: SPUTUM, EXPECTORATED SMEAR,FLUOR STAIN,ACID FAST [[id number]] Collected: 07/28/221424 Order Status: No result Lab Status: In process Updated: 07/28/22 1612 HISTOPLASMA ANTIGEN [[id number]] Collected: 07/28/221423 Order Status: Sent Lab Status: No result Specimen: BLOOD HISTOPLASMA ANTIGEN [[id number]] Collected: 07/28/221423 Order Status: Canceled Lab Status: No result Specimen: BLOOD GLUCOSE, BODY FLUID [[id number]] Order Status: Canceled Lab Status: No result Specimen: PLEURAL FLUID PH BODY FLUID [[id number]] Order Status: Canceled Lab Status: No result Specimen: PLEURAL FLUID CULTURE, BODY FLUID W/ GRAM STAIN [[id number]] Order Status: Canceled Lab Status: No result Specimen: PLEURAL FLUID CULTURE, ANAEROBIC [[id number]] Order Status: Canceled Lab Status: No result Specimen: PLEURAL FLUID CULTURE, FUNGUS [[id number]] Order Status: Canceled Lab Status: No result Specimen: PLEURAL FLUID LDH BODY FLUID [[id number]] Collected: 07/27/22 1030 Order Status: Completed Lab Status: Final result Updated: 07/27/221521 Specimen: PLEURAL FLUID FLUID LDH >4,000 UNITS/L Comment: REFERENCE RANGE NOT ESTABLISHED FOR THIS BODY FLUID. SOURCE (FLUID) PLEURAL FLUID CELL COUNT W/ DIFF BODY FLUID [[id number]] Collected: 07/27/221029 Order Status: Completed Lab Status: Final result Updated: 07/27/22 1545 Specimen: PLEURAL FLUID SOURCE (FLUID) PLEURAL FLUID FL WBC 144.450 x10'3/uL Comment: REFERENCE RANGE NOT ESTABLISHED FL RBC 0.090 x10'6/uL Comment: REFERENCE RANGE NOT ESTABLISHED DIFFERENTIAL MANUAL DIFFERENTIAL PERFORMED ON CONCENTRATED CYTOSPIN CELLS COUNTED 100 No COUNTED SEGS (FLUID) 97 % LYMPHS (FLUID) 3 % PROTEIN TOTAL FLUID [[id number]] Collected: 07/27/221029 Order Status: Completed Lab Status: Final result Updated: 07/27/22 1522 Specimen: PLEURAL FLUID PROTEIN (FLUID) 3.5 G/DL Comment: REFERENCE RANGE NOT ESTABLISHED FOR THIS BODY FLUID. SOURCE (FLUID) PLEURAL FLUID CULTURE, BODY FLUID W/ GRAM STAIN [[id number]] Collected: 07/27/221029 Order Status: Canceled Lab Status: No result Specimen: PLEURAL FLUID CULTURE, ANAEROBIC [[id number]] Collected: 07/27/221029 Order Status: Canceled Lab Status: No result Specimen: PLEURAL FLUID CULTURE, BODY FLUID W/ GRAM STAIN [[id number]] (Susceptibility) Collected: 07/27/221029 Order Status: Completed Lab [...] Sensitive TRIMETH-SULFAMETH. Resistant VANCOMYCIN Sensitive CULTURE, ANAEROBIC [[id number]] (Susceptibility) Collected: 07/27/221029 Order Status: Completed Lab Status: Final result Updated: 08/01/22 0826 Specimen: SITE Spec. Description SITE: RT PLEURAL FLUID Special Requests: NO SPECIAL REQUEST Culture Result: -- FEW MICROAEROPHILIC STREPTOCOCCUS Susceptibility Microaerophilic streptococcus ARLEN (ETEST) CEFOTAXIME 0.023 Sensitive PENICILLIN G 0.008 Sensitive BLASTOMYCES AG MVISTA (TM), EIA [[id number]] Order Status: No result Lab Status: No result Specimen: BLOOD BLASTOMYCES AG MVISTA (TM), EIA [[id number]] Order Status: No result Lab Status: No result Specimen: URINE CORONAVIRUS (COVID 19) PCR - Asymptomatic patients, may be completed at physician discretion [[id number]] Collected: 07/25/222031 Order Status: Sent Lab Status: No result Specimen: NASOPHARYNGEAL SWAB STREP PNEUMO AG URINE [[id number]] Collected: 07/25/222030 Order Status: Completed Lab Status: [...] Type URINE VOIDED MRSA PCR nares Screening [[id number]] Collected: 07/25/222030 Order Status: Canceled Lab Status: No result Specimen: NASAL CULTURE, BACTERIA, BLOOD [[id number]] Collected: 07/25/221416 Order Status: Completed Lab Status: Final result Updated: 07/30/222144 Specimen: BLOOD Spec. Description BLOOD Special Requests: NO SPECIAL REQUEST Culture Result: NO GROWTH 5 DAYS CULTURE, BACTERIA, BLOOD [[id number]] Collected: 07/25/221415 Order Status: Completed Lab Status: [...] [facility] the [facility] Problem List Items Addressed This Visit None [...] improvement LANRE WINTER MD 3:33 PM 08/04/2022 NEYMAN SHEET METAL WORKER * Ann Mcdonnell, PharmD - 08/04/2022 [...] Consult per Dr. Srinath MCDONNELL, PharmD Phone: [phone] 08/04/2022 3:28 PM NEYMAN SHEET METAL WORKER * Patel Kelsey MD - 08/04/2022 [...] Sputum cultures with presumptive tete albicans ?? [facility] Pulmonology Plan/ Recommendations: -??S/p Chest tube [...] Katie Paula MD at 08/04/2022 1:46 PM JOURNEYMAN SHEET METAL WORKER NEYMAN SHEET METAL WORKER NEYMAN SHEET METAL WORKER Associated attestation - Katie Paula MD - 08/04/2022 1:46 PM JOURNEYMAN SHEET METAL WORKER [facility] Pulmonary and Critical Care Medicine [...] 3-10 mL, 3-10 mL, Intravenous, PRN, JOSEPH Whitehaed, 10 mL at 08/02/22 1833 ??? ondansetron [...] Brent Lemos MD at 08/04/2022 12:55 PM JOURNEYMAN SHEET METAL WORKER NEYMAN SHEET METAL WORKER NEYMAN SHEET METAL WORKER * SMITH Handley - 08/03/2022 4:38 PM CST OT Treatment Discharge Recommendation: home with assistance Activity Recommendation for business employment specialist: Up with gait belt x1 assist using 2 w/w to restroom, up in chair for every meal. 08/03/22 1418 Therapy Visit OT Received On 08/03/22 Reason for admission Update: Pt had VATS with R decorication on 08/02 with R chest tube placement (CT to suction). Discussed with Ana MOYA who okayed proposal lead writer proceed with POC. Pt is a [...] was notusing at home. Pt reports independence SOCIAL SERVICES ASSISTANT with ADLs, IADLS, and was driving. Pt [...] Pt stated he walked that way prior, proposal lead writer discussed safety concerns. Other (Comment) Pt [...] Name: Ray Phillips Primary Language of learner: Greek Patient was educated on transfers ADLs balance therapy plan safety energy conservation. Education was completed one to one verbal this date. Preference of learning new concepts one to one verbal Barriers to education this date were fatigue. Response to education this date verbalized understanding verbalized recall asks questions demos with verbal cues needs reinforcement needs follow up needs assistance. NEYMAN SHEET METAL WORKER * Lanre Winter MD - 08/03/2022 [...] Procedure Component Value Units Date/Time CULTURE, ANAEROBIC [[id number]] Collected: 08/02/22 0838 Order Status: Sent Lab Status: In process Updated: 08/02/22 1008 Specimen: TISSUE from OTHER (type in comments) CULTURE TB/AFB OTHER (TYPE IN COMMENTS) [[id number]] Collected: 08/02/22837 Order Status: Sent Lab Status: In process Updated: 08/02/22 1009 Specimen: TISSUE from OTHER (type in comments) CULTURE, FUNGUS [[id number]] Collected: 08/02/22837 Order Status: Sent Lab Status: In process Updated: 08/02/22 1010 Specimen: TISSUE from OTHER (type in comments) CULTURE, TISSUE W/GRAM STAIN [[id number]] Collected: 08/02/22837 Order Status: Completed Lab Status: Preliminary result Updated: 08/02/22 1602 Specimen: TISSUE from OTHER (type in comments) Spec. Description TISSUE: RT DECORTICATION TISU Special Requests: NO SPECIAL REQUEST Follow-up of empyema hydropneumothorax result -- MODERATE NEUTROPHILS SEEN Gram Stain Result NO ORGANISMS SEEN Culture Result: PENDING SMEAR,FLUOR STAIN,ACID FAST [[id number]] Collected: 08/02/22837 Order Status: No result Lab Status: In process Updated: 08/02/22 1012 CULTURE, FUNGUS [[id number]] Order Status: No result Lab Status: No result Specimen: BRONCHOALVEO LAV, RT LWR CULTURE TB/AFB OTHER (TYPE IN COMMENTS) [[id number]] Order Status: No result Lab Status: No result Specimen: BRONCHOALVEO LAV, RT LWR SMEAR,FLUOR STAIN,ACID FAST [[id number]] Order Status: No result Lab Status: No result Specimen: BRONCHOALVEO LAV, RT LWR CULTURE VIRAL RESPIRATORY RAPID [[id number]] Order Status: No result Lab Status: No result Specimen: BRONCHOALVEO LAV, RT LWR CULTURE RESPIRATORY W/ GRAM STAIN [[id number]] Order Status: No result Lab Status: No result Specimen: BRONCHIAL WASHING CULTURE, FUNGUS [[id number]] Order Status: No result Lab Status: No result Specimen: BRONCHIAL WASHING CULTURE TB/AFB OTHER (TYPE IN COMMENTS) [[id number]] Order Status: No result Lab Status: No result Specimen: BRONCHIAL WASHING SMEAR,FLUOR STAIN,ACID FAST [[id number]] Order Status: No result Lab Status: No result Specimen: BRONCHIAL WASHING CULTURE VIRAL RESPIRATORY RAPID [[id number]] Order Status: No result Lab Status: No result Specimen: BRONCHIAL WASHING CULTURE, QUANTITATIVE W/ GRAM STAIN [[id number]] Order Status: No result Lab Status: No result Specimen: BRONCHOALVEO LAV, RT LWR CULTURE, FUNGUS [[id number]] Collected: 07/30/221529 Order Status: No result Lab Status: In process Updated: 07/30/22 170 CULTURE RESPIRATORY W/ GRAM STAIN [[id number]] Collected: 07/30/221529 Order Status: Completed Lab Status: Final result Updated: 08/03/22 1228 Specimen: SITE Spec. Description SITE: BRONCH WASH Special Requests: NO SPECIAL REQUEST Gram Stain Result -- MANY NEUTROPHILS SEEN Gram Stain Result NO ORGANISMS SEEN Culture Result: -- FEW TETE ALBICANS SMEAR,FLUOR STAIN,ACID FAST [[id number]] Collected: 07/30/221529 Order Status: Completed Lab Status: Final result Updated: 08/01/222317 ACID FAST SMEAR RESULT SEE NOTE 08/01/2022 11:18 PM Comment: Test Result Flag Unit RefValue Acid Fast Smear For Mycobacterium SOURCE: BRONCHIAL WASHING, BWASH/BAL MIX ACID FAST SMEAR FOR MYCOBACTERIUM FINAL Negative. Test Performed by: [place] [address] Enterer: Brent Alcaraz M.D. Ph.D.; CLIA# [id number] CULTURE TB/AFB OTHER [[id number]] Collected: 07/30/221529 Order Status: No result Lab Status: In process Updated: 07/30/22 170 CULTURE, QUANTITATIVE W/ GRAM STAIN [[id number]] Collected: 07/30/221529 Order Status: Completed Lab Status: Final result Updated: 08/02/22 1457 Specimen: SITE Spec. Description SITE: BAL RLL Special Requests: NO SPECIAL REQUEST Gram Stain Result <10 NEUTROPHILS PER LPF Gram Stain Result <10 EPITHELIAL CELLS PER LPF Gram Stain Result -- RARE GRAM NEGATIVE RODS Culture Result: -- 500 CFU/ML YEAST , ID UPON REQUEST CULTURE, FUNGUS [[id number]] Collected: 07/30/221529 Order Status: Canceled Lab Status: No result SMEAR,FLUOR STAIN,ACID FAST [[id number]] Collected: 07/30/22 153 Order Status: Canceled Lab Status: No result CULTURE TB/AFB OTHER [[id number]] Collected: 07/30/22 153 Order Status: Canceled Lab Status: No result CULTURE CMV [[id number]] Collected: 07/30/22 153 Order Status: No result Lab Status: In process Updated: 07/31/22 1431 CULTURE HERPES [[id number]] Collected: 07/30/221529 Order Status: No result Lab Status: In process Updated: 07/31/22 1432 CULTURE VIRAL RESPIRATORY RAPID [[id number]] Collected: 07/30/22 153 Order Status: No result Lab Status: In process Updated: 07/31/22 143 CULTURE RESPIRATORY W/ GRAM STAIN [[id number]] Collected: 07/28/221424 Order Status: Completed Lab Status: [...] -- MODERATE PRESUMPTIVE TETE ALBICANS CULTURE, FUNGUS [[id number]] Collected: 07/28/221424 Order Status: Sent Lab Status: In process Updated: 07/31/22 1336 Specimen: SPUTUM, EXPECTORATED CULTURE TB/AFB OTHER (TYPE IN COMMENTS) [[id number]] Collected: 07/28/221424 Order Status: Sent Lab Status: No result Specimen: SPUTUM, EXPECTORATED SMEAR,FLUOR STAIN,ACID FAST [[id number]] Collected: 07/28/221424 Order Status: No result Lab Status: In process Updated: 07/28/22 1612 HISTOPLASMA ANTIGEN [[id number]] Collected: 07/28/221423 Order Status: Sent Lab Status: No result Specimen: BLOOD HISTOPLASMA ANTIGEN [[id number]] Collected: 07/28/221423 Order Status: Canceled Lab Status: No result Specimen: BLOOD GLUCOSE, BODY FLUID [[id number]] Order Status: Canceled Lab Status: No result Specimen: PLEURAL FLUID PH BODY FLUID [[id number]] Order Status: Canceled Lab Status: No result Specimen: PLEURAL FLUID CULTURE, BODY FLUID W/ GRAM STAIN [[id number]] Order Status: Canceled Lab Status: No result Specimen: PLEURAL FLUID CULTURE, ANAEROBIC [[id number]] Order Status: Canceled Lab Status: No result Specimen: PLEURAL FLUID CULTURE, FUNGUS [[id number]] Order Status: Canceled Lab Status: No result Specimen: PLEURAL FLUID LDH BODY FLUID [[id number]] Collected: 07/27/221029 Order Status: Completed Lab Status: Final result Updated: 07/27/22 152 Specimen: PLEURAL FLUID FLUID LDH >4,000 UNITS/L Comment: REFERENCE RANGE NOT ESTABLISHED FOR THIS BODY FLUID. SOURCE (FLUID) PLEURAL FLUID CELL COUNT W/ DIFF BODY FLUID [[id number]] Collected: 07/27/221029 Order Status: Completed Lab Status: Final result Updated: 07/27/22 1545 Specimen: PLEURAL FLUID SOURCE (FLUID) PLEURAL FLUID FL WBC 144.450 x10'3/uL Comment: REFERENCE RANGE NOT ESTABLISHED FL RBC 0.090 x10'6/uL Comment: REFERENCE RANGE NOT ESTABLISHED DIFFERENTIAL MANUAL DIFFERENTIAL PERFORMED ON CONCENTRATED CYTOSPIN CELLS COUNTED 100 No COUNTED SEGS (FLUID) 97 % LYMPHS (FLUID) 3 % PROTEIN TOTAL FLUID [[id number]] Collected: 07/27/221029 Order Status: Completed Lab Status: Final result Updated: 07/27/22 152 Specimen: PLEURAL FLUID PROTEIN (FLUID) 3.5 G/DL Comment: REFERENCE RANGE NOT ESTABLISHED FOR THIS BODY FLUID. SOURCE (FLUID) PLEURAL FLUID CULTURE, BODY FLUID W/ GRAM STAIN [[id number]] Collected: 07/27/221029 Order Status: Canceled Lab Status: No result Specimen: PLEURAL FLUID CULTURE, ANAEROBIC [[id number]] Collected: 07/27/221029 Order Status: Canceled Lab Status: No result Specimen: PLEURAL FLUID CULTURE, BODY FLUID W/ GRAM STAIN [[id number]] (Susceptibility) Collected: 07/27/221029 Order Status: Completed Lab [...] Sensitive TRIMETH-SULFAMETH. Resistant VANCOMYCIN Sensitive CULTURE, ANAEROBIC [[id number]] (Susceptibility) Collected: 07/27/22 1030 Order Status: Completed Lab Status: Final result Updated: 08/01/22 08 Specimen: SITE Spec. Description SITE: RT PLEURAL FLUID Special Requests: NO SPECIAL REQUEST Culture Result: -- FEW MICROAEROPHILIC STREPTOCOCCUS Susceptibility Microaerophilic streptococcus ARLEN (ETEST) CEFOTAXIME 0.023 Sensitive PENICILLIN G 0.008 Sensitive BLASTOMYCES AG MVISTA (TM), EIA [[id number]] Order Status: No result Lab Status: No result Specimen: BLOOD BLASTOMYCES AG MVISTA (TM), EIA [[id number]] Order Status: No result Lab Status: No result Specimen: URINE CORONAVIRUS (COVID 19) PCR - Asymptomatic patients, may be completed at physician discretion [[id number]] Collected: 07/25/222031 Order Status: Sent Lab Status: No result Specimen: NASOPHARYNGEAL SWAB STREP PNEUMO AG URINE [[id number]] Collected: 07/25/222030 Order Status: Completed Lab Status: [...] Type URINE VOIDED MRSA PCR nares Screening [[id number]] Collected: 07/25/222030 Order Status: Canceled Lab Status: No result Specimen: NASAL CULTURE, BACTERIA, BLOOD [[id number]] Collected: 07/25/221416 Order Status: Completed Lab Status: Final result Updated: 07/30/222144 Specimen: BLOOD Spec. Description BLOOD Special Requests: NO SPECIAL REQUEST Culture Result: NO GROWTH 5 DAYS CULTURE, BACTERIA, BLOOD [[id number]] Collected: 07/25/221415 Order Status: Completed Lab Status: [...] with the following history as recorded in [facility]: Problem List Items Addressed This Visit None [...] improvement LANRE WINTER MD 3:18 PM 08/03/2022 NEYMAN SHEET METAL WORKER * Raquel Wetzel MD - 08/03/2022 [...] mg, 4 mg, Intravenous, Q8H PRN, Tracy oY MD ??? polyethylene glycol (GLYCOLAX) packet 17 [...] Ross Blackburn MD at 08/04/2022 8:14 AM JOURNEYMAN SHEET METAL WORKER [employer]YMAN SHEET METAL WORKER NEYMAN SHEET METAL WORKER * Ford Tay - 08/03/2022 2:52 [...] Pharmacy Consult per Dr. Srinath Tay Phone: [phone] 08/03/2022 2:54 PM Cosigned by Maria Antonia Quiñones, PharmD at 08/03/2022 3:40 PM JOURNEYMAN SHEET METAL WORKER NEYMAN SHEET METAL WORKER NEYMAN SHEET METAL WORKER * Zoila Farias MD - 08/03/2022 12:40 PM CSTSummary: [facility] ID PROGRESS NOTE [facility] INFECTIOUS DISEASE PROGRESS NOTE Attending Provider:Dr. Robbins PCP: JOE TAM DO Reason for Consultation: Loculated pleural effusions, Pneumonia ASSESSMENT AND PLAN Ray Phillips is a 67-year-old male with medical history of chronic tobacco use who was transferred from [facility] near [place] for treatment resistant pneumonia and loculated pleural [...] understanding with plan. Thank you for consulting [facility] Infectious Disease, we will continue to follow. Paulina Dale APRN [facility] Infectious Disease 08/03/2022 Teaching physician note: Infectious Diseases Attending Physician: Patient personally interviewed and examined. Chart reviewed. Vitals, pertinent labs and imaging reviewed. [facility] Infectious Disease resident/fellow note reviewed and [...] NG Antimicrobial Regimen Unknown Abx regiment at [facility] Vancomycin IV 1.25g every 24h(07/25 [...] Tracy Yo MD, 1 spray at 07/25/22 0995 ??? sterile talc (STERITALC) powder/slurry 8 g, [...] Intravenous, See Admin Instructions, Tracy Yo MD NEYMAN SHEET METAL WORKER NEYMAN SHEET METAL WORKER NEYMAN SHEET METAL WORKER NEYMAN SHEET METAL WORKER * Adali Henry, [facility] - 08/03/2022 11:43 AM CST [facility] PULMONOLOGY??PROGRESS??NOTE [...] will continue to follow. ?? Adali Henry, [employer] 08/03/2022 SUBJECTIVE Patient doing well this morning, [...] Katie Paula MD at 08/03/2022 7:56 PM JOURNEYMAN SHEET METAL WORKER NEYMAN SHEET METAL WORKER NEYMAN SHEET METAL WORKER Associated attestation - Katie Paula MD - 08/03/2022 7:56 PM JOURNEYMAN SHEET METAL WORKER [facility] Pulmonary and Critical Care Medicine [...] equipment recommendation: none Activity Recommendation for business employment specialist: up with 1, gaitbelt, chest tube [...] suction). Discussed with Ana MOYA who okayed proposal lead writer proceed with POC. Pt is a [...] was notusing at home. Pt reports independence SOCIAL SERVICES ASSISTANT with ADLs, IADLS, and was driving. Pt [...] RN entering to give pain meds as proposal lead writer exiting room. Education: Primary Learners Name: Ray Phillips Primary Language of learner: Greek Patient Spouse was educated on exercises transfers balance bed mobility therapy plan safety. Education was completed one to one this date. Preference of learning new concepts one to one Barriers to education this date were pain fatigue. Response to education this date needs follow up. NEYMAN SHEET METAL WORKER * Estephania Long RN - 08/03/2022 8:35 AM CST 08/03/22 0835 Interdisciplinary Group Conference Team Members Present Physician;Case/Care management (Dr. Winter: [facility]) Barriers to Discharge Barriers Not Medically ready Not Medically ready follow up [facility] status: s/p Vats: Chest tube to suction Patient's plan is to dc to home,lives with significant other: May need home oxygen eval prior to dc. CM will continue to follow for safe dc planning/dc needs. NEYMAN SHEET METAL WORKER * Lanre Winter MD - 08/02/2022 [...] Procedure Component Value Units Date/Time CULTURE, ANAEROBIC [[id number]] Collected: 08/02/22837 Order Status: Sent Lab Status: In process Updated: 08/02/22 1008 Specimen: TISSUE from OTHER (type in comments) CULTURE TB/AFB OTHER (TYPE IN COMMENTS) [[id number]] Collected: 08/02/22837 Order Status: Sent Lab Status: In process Updated: 08/02/22 1009 Specimen: TISSUE from OTHER (type in comments) CULTURE, FUNGUS [[id number]] Collected: 08/02/22837 Order Status: Sent Lab Status: In process Updated: 08/02/22 1010 Specimen: TISSUE from OTHER (type in comments) CULTURE, TISSUE W/GRAM STAIN [[id number]] Collected: 12/01/22 0838 Order Status: Sent Lab Status: In process Updated: 08/02/22 1010 Specimen: TISSUE from OTHER (type in comments) SMEAR,FLUOR STAIN,ACID FAST [[id number]] Collected: 08/02/22 0838 Order Status: No result Lab Status: In process Updated: 08/02/22 1012 CULTURE, FUNGUS [[id number]] Order Status: No result Lab Status: No result Specimen: BRONCHOALVEO LAV, RT LWR CULTURE TB/AFB OTHER (TYPE IN COMMENTS) [[id number]] Order Status: No result Lab Status: No result Specimen: BRONCHOALVEO LAV, RT LWR SMEAR,FLUOR STAIN,ACID FAST [[id number]] Order Status: No result Lab Status: No result Specimen: BRONCHOALVEO LAV, RT LWR CULTURE VIRAL RESPIRATORY RAPID [[id number]] Order Status: No result Lab Status: No result Specimen: BRONCHOALVEO LAV, RT LWR CULTURE RESPIRATORY W/ GRAM STAIN [[id number]] Order Status: No result Lab Status: No result Specimen: BRONCHIAL WASHING CULTURE, FUNGUS [[id number]] Order Status: No result Lab Status: No result Specimen: BRONCHIAL WASHING CULTURE TB/AFB OTHER (TYPE IN COMMENTS) [[id number]] Order Status: No result Lab Status: No result Specimen: BRONCHIAL WASHING SMEAR,FLUOR STAIN,ACID FAST [[id number]] Order Status: No result Lab Status: No result Specimen: BRONCHIAL WASHING CULTURE VIRAL RESPIRATORY RAPID [[id number]] Order Status: No result Lab Status: No result Specimen: BRONCHIAL WASHING CULTURE, QUANTITATIVE W/ GRAM STAIN [[id number]] Order Status: No result Lab Status: No result Specimen: BRONCHOALVEO LAV, RT LWR CULTURE, FUNGUS [[id number]] Collected: 07/30/22 1530 Order Status: No result Lab Status: In process Updated: 07/30/22 1701 CULTURE RESPIRATORY W/ GRAM STAIN [[id number]] Collected: 07/30/22 153 Order Status: Completed Lab Status: Preliminary result Updated: 08/01/22 1519 Specimen: SITE Spec. Description SITE: BRONCH WASH Special Requests: NO SPECIAL REQUEST Gram Stain Result -- MANY NEUTROPHILS SEEN Gram Stain Result NO ORGANISMS SEEN Culture Result: -- FEW YEAST . FURTHER ID TO FOLLOW. SMEAR,FLUOR STAIN,ACID FAST [[id number]] Collected: 07/30/221529 Order Status: Completed Lab Status: Final result Updated: 08/01/22 2318 ACID FAST SMEAR RESULT SEE NOTE 08/01/2022 11:18 PM Comment: Test Result Flag Unit RefValue Acid Fast Smear For Mycobacterium SOURCE: BRONCHIAL WASHING, BWASH/BAL MIX ACID FAST SMEAR FOR MYCOBACTERIUM FINAL Negative. Test Performed by: [facility] [place] [address] Enterer: Brent Alcaraz M.D. Ph.D.; CLIA# [id number] CULTURE TB/AFB OTHER [[id number]] Collected: 07/30/221529 Order Status: No result Lab Status: In process Updated: 07/30/22 1704 CULTURE, QUANTITATIVE W/ GRAM STAIN [[id number]] Collected: 07/30/221529 Order Status: Completed Lab Status: Final result Updated: 08/02/22 1457 Specimen: SITE Spec. Description SITE: BAL RLL Special Requests: NO SPECIAL REQUEST Gram Stain Result <10 NEUTROPHILS PER LPF Gram Stain Result <10 EPITHELIAL CELLS PER LPF Gram Stain Result -- RARE GRAM NEGATIVE RODS Culture Result: -- 500 CFU/ML YEAST , ID UPON REQUEST CULTURE, FUNGUS [[id number]] Collected: 07/30/221529 Order Status: Canceled Lab Status: No result SMEAR,FLUOR STAIN,ACID FAST [[id number]] Collected: 07/30/221529 Order Status: Canceled Lab Status: No result CULTURE TB/AFB OTHER [[id number]] Collected: 07/30/221529 Order Status: Canceled Lab Status: No result CULTURE CMV [[id number]] Collected: 07/30/221529 Order Status: No result Lab Status: In process Updated: 07/31/22 1431 CULTURE HERPES [[id number]] Collected: 07/30/221529 Order Status: No result Lab Status: In process Updated: 07/31/22 1432 CULTURE VIRAL RESPIRATORY RAPID [[id number]] Collected: 11/28/22 1530 Order Status: No result Lab Status: In process Updated: 07/31/22 1435 CULTURE RESPIRATORY W/ GRAM STAIN [[id number]] Collected: 07/28/221424 Order Status: Completed Lab Status: [...] -- MODERATE PRESUMPTIVE TETE ALBICANS CULTURE, FUNGUS [[id number]] Collected: 07/28/221424 Order Status: Sent Lab Status: In process Updated: 07/31/221335 Specimen: SPUTUM, EXPECTORATED CULTURE TB/AFB OTHER (TYPE IN COMMENTS) [[id number]] Collected: 07/28/221424 Order Status: Sent Lab Status: No result Specimen: SPUTUM, EXPECTORATED SMEAR,FLUOR STAIN,ACID FAST [[id number]] Collected: 07/28/221424 Order Status: No result Lab Status: In process Updated: 07/28/22 1612 HISTOPLASMA ANTIGEN [[id number]] Collected: 07/28/221423 Order Status: Sent Lab Status: No result Specimen: BLOOD HISTOPLASMA ANTIGEN [[id number]] Collected: 07/28/221423 Order Status: Canceled Lab Status: No result Specimen: BLOOD GLUCOSE, BODY FLUID [[id number]] Order Status: Canceled Lab Status: No result Specimen: PLEURAL FLUID PH BODY FLUID [[id number]] Order Status: Canceled Lab Status: No result Specimen: PLEURAL FLUID CULTURE, BODY FLUID W/ GRAM STAIN [[id number]] Order Status: Canceled Lab Status: No result Specimen: PLEURAL FLUID CULTURE, ANAEROBIC [[id number]] Order Status: Canceled Lab Status: No result Specimen: PLEURAL FLUID CULTURE, FUNGUS [[id number]] Order Status: Canceled Lab Status: No result Specimen: PLEURAL FLUID LDH BODY FLUID [[id number]] Collected: 07/27/22 1030 Order Status: Completed Lab Status: Final result Updated: 07/27/22 1522 Specimen: PLEURAL FLUID FLUID LDH >4,000 UNITS/L Comment: REFERENCE RANGE NOT ESTABLISHED FOR THIS BODY FLUID. SOURCE (FLUID) PLEURAL FLUID CELL COUNT W/ DIFF BODY FLUID [[id number]] Collected: 07/27/221029 Order Status: Completed Lab Status: Final result Updated: 07/27/22 1545 Specimen: PLEURAL FLUID SOURCE (FLUID) PLEURAL FLUID FL WBC 144.450 x10'3/uL Comment: REFERENCE RANGE NOT ESTABLISHED FL RBC 0.090 x10'6/uL Comment: REFERENCE RANGE NOT ESTABLISHED DIFFERENTIAL MANUAL DIFFERENTIAL PERFORMED ON CONCENTRATED CYTOSPIN CELLS COUNTED 100 No COUNTED SEGS (FLUID) 97 % LYMPHS (FLUID) 3 % PROTEIN TOTAL FLUID [[id number]] Collected: 07/27/221029 Order Status: Completed Lab Status: Final result Updated: 07/27/221521 Specimen: PLEURAL FLUID PROTEIN (FLUID) 3.5 G/DL Comment: REFERENCE RANGE NOT ESTABLISHED FOR THIS BODY FLUID. SOURCE (FLUID) PLEURAL FLUID CULTURE, BODY FLUID W/ GRAM STAIN [[id number]] Collected: 07/27/221029 Order Status: Canceled Lab Status: No result Specimen: PLEURAL FLUID CULTURE, ANAEROBIC [[id number]] Collected: 07/27/221029 Order Status: Canceled Lab Status: No result Specimen: PLEURAL FLUID CULTURE, BODY FLUID W/ GRAM STAIN [[id number]] (Susceptibility) Collected: 07/27/221029 Order Status: Completed Lab [...] Sensitive TRIMETH-SULFAMETH. Resistant VANCOMYCIN Sensitive CULTURE, ANAEROBIC [[id number]] (Susceptibility) Collected: 07/27/221029 Order Status: Completed Lab Status: Final result Updated: 08/01/22 08 Specimen: SITE Spec. Description SITE: RT PLEURAL FLUID Special Requests: NO SPECIAL REQUEST Culture Result: -- FEW MICROAEROPHILIC STREPTOCOCCUS Susceptibility Microaerophilic streptococcus ARLEN (ETEST) CEFOTAXIME 0.023 Sensitive PENICILLIN G 0.008 Sensitive BLASTOMYCES AG MVISTA (TM), EIA [[id number]] Order Status: No result Lab Status: No result Specimen: BLOOD BLASTOMYCES AG MVISTA (TM), EIA [[id number]] Order Status: No result Lab Status: No result Specimen: URINE CORONAVIRUS (COVID 19) PCR - Asymptomatic patients, may be completed at physician discretion [[id number]] Collected: 07/25/222031 Order Status: Sent Lab Status: No result Specimen: NASOPHARYNGEAL SWAB STREP PNEUMO AG URINE [[id number]] Collected: 07/25/222030 Order Status: Completed Lab Status: [...] Type URINE VOIDED MRSA PCR nares Screening [[id number]] Collected: 07/25/222030 Order Status: Canceled Lab Status: No result Specimen: NASAL CULTURE, BACTERIA, BLOOD [[id number]] Collected: 07/25/221416 Order Status: Completed Lab Status: Final result Updated: 07/30/222144 Specimen: BLOOD Spec. Description BLOOD Special Requests: NO SPECIAL REQUEST Culture Result: NO GROWTH 5 DAYS CULTURE, BACTERIA, BLOOD [[id number]] Collected: 07/25/221415 Order Status: Completed Lab Status: [...] improvement LANRE WINTER MD 3:34 PM 08/02/2022 NEYMAN SHEET METAL WORKER * Adali Henry, AVIAN KEEPER - 08/02/2022 12:50 PM CST [facility] PULMONOLOGY??PROGRESS??NOTE [...] Katie Paula MD at 08/02/2022 7:52 PM JOURNEYMAN SHEET METAL WORKER NEYMAN SHEET METAL WORKER NEYMAN SHEET METAL WORKER Associated attestation - Katie Paula MD - 08/02/2022 7:52 PM JOURNEYMAN SHEET METAL WORKER [facility] Pulmonary and Critical Care Medicine Attending Note: [...] Pharmacy Consult per Dr. Srinath Tay Phone: [phone] 08/02/2022 11:56 AM Cosigned by Maria Antonia Quiñones PharmD at 08/02/2022 3:49 PM JOURNEYMAN SHEET METAL WORKER NEYMAN SHEET METAL WORKER NEYMAN SHEET METAL WORKER NEYMAN SHEET METAL WORKER NEYMAN SHEET METAL WORKER * Angela Dawkins RN - 08/02/2022 8:55 AM CSTSummary: D/C plans IDBR done with Dr Winter KERRIE ROSAS to discuss POC/D/C plans. See notes below. 08/02/22 1550 Interdisciplinary Group Conference Team Members Present Case/Care management;Physician Barriers to Discharge Barriers Not Medically ready Not Medically ready follow up Pt to have VATS today. Continue IMC status. NEYMAN SHEET METAL WORKER * Lanre Winter MD - 08/01/2022 [...] Procedure Component Value Units Date/Time CULTURE, FUNGUS [[id number]] Order Status: No result Lab Status: No result Specimen: BRONCHOALVEO LAV, RT LWR CULTURE TB/AFB OTHER (TYPE IN COMMENTS) [[id number]] Order Status: No result Lab Status: No result Specimen: BRONCHOALVEO LAV, RT LWR SMEAR,FLUOR STAIN,ACID FAST [[id number]] Order Status: No result Lab Status: No result Specimen: BRONCHOALVEO LAV, RT LWR CULTURE VIRAL RESPIRATORY RAPID [[id number]] Order Status: No result Lab Status: No result Specimen: BRONCHOALVEO LAV, RT LWR CULTURE RESPIRATORY W/ GRAM STAIN [[id number]] Order Status: No result Lab Status: No result Specimen: BRONCHIAL WASHING CULTURE, FUNGUS [[id number]] Order Status: No result Lab Status: No result Specimen: BRONCHIAL WASHING CULTURE TB/AFB OTHER (TYPE IN COMMENTS) [[id number]] Order Status: No result Lab Status: No result Specimen: BRONCHIAL WASHING SMEAR,FLUOR STAIN,ACID FAST [[id number]] Order Status: No result Lab Status: No result Specimen: BRONCHIAL WASHING CULTURE VIRAL RESPIRATORY RAPID [[id number]] Order Status: No result Lab Status: No result Specimen: BRONCHIAL WASHING CULTURE, QUANTITATIVE W/ GRAM STAIN [[id number]] Order Status: No result Lab Status: No result Specimen: BRONCHOALVEO LAV, RT LWR CULTURE, FUNGUS [[id number]] Collected: 07/30/221529 Order Status: No result Lab Status: In process Updated: 07/30/22 1701 CULTURE RESPIRATORY W/ GRAM STAIN [[id number]] Collected: 07/30/221529 Order Status: Completed Lab Status: Preliminary result Updated: 07/31/221556 Specimen: SITE Spec. Description SITE: BRONCH WASH Special Requests: NO SPECIAL REQUEST Gram Stain Result -- MANY NEUTROPHILS SEEN Gram Stain Result NO ORGANISMS SEEN Culture Result: -- FEW YEAST , ID UPON REQUEST SMEAR,FLUOR STAIN,ACID FAST [[id number]] Collected: 07/30/221529 Order Status: No result Lab Status: In process Updated: 07/30/22 170 CULTURE TB/AFB OTHER [[id number]] Collected: 07/30/221529 Order Status: No result Lab Status: In process Updated: 07/30/22 170 CULTURE, QUANTITATIVE W/ GRAM STAIN [[id number]] Collected: 07/30/221529 Order Status: Completed Lab Status: Preliminary result Updated: 07/31/221557 Specimen: SITE Spec. Description SITE: BAL RLL Special Requests: NO SPECIAL REQUEST Gram Stain Result <10 NEUTROPHILS PER LPF Gram Stain Result <10 EPITHELIAL CELLS PER LPF Gram Stain Result -- RARE GRAM NEGATIVE RODS Culture Result: NO GROWTH 1 DAY CULTURE, FUNGUS [[id number]] Collected: 07/30/221529 Order Status: Canceled Lab Status: No result SMEAR,FLUOR STAIN,ACID FAST [[id number]] Collected: 07/30/221529 Order Status: Canceled Lab Status: No result CULTURE TB/AFB OTHER [[id number]] Collected: 07/30/221529 Order Status: Canceled Lab Status: No result CULTURE CMV [[id number]] Collected: 07/30/221529 Order Status: No result Lab Status: In process Updated: 07/31/22 1431 CULTURE HERPES [[id number]] Collected: 07/30/221529 Order Status: No result Lab Status: In process Updated: 07/31/22 1432 CULTURE VIRAL RESPIRATORY RAPID [[id number]] Collected: 07/30/22 1530 Order Status: No result Lab Status: In process Updated: 07/31/22 1435 CULTURE RESPIRATORY W/ GRAM STAIN [[id number]] Collected: 07/28/221424 Order Status: Completed Lab Status: [...] -- MODERATE PRESUMPTIVE TETE ALBICANS CULTURE, FUNGUS [[id number]] Collected: 07/28/221424 Order Status: Sent Lab Status: In process Updated: 07/31/22 1336 Specimen: SPUTUM, EXPECTORATED CULTURE TB/AFB OTHER (TYPE IN COMMENTS) [[id number]] Collected: 07/28/221424 Order Status: Sent Lab Status: No result Specimen: SPUTUM, EXPECTORATED SMEAR,FLUOR STAIN,ACID FAST [[id number]] Collected: 07/28/221424 Order Status: No result Lab Status: In process Updated: 07/28/22 1612 HISTOPLASMA ANTIGEN [[id number]] Collected: 07/28/221423 Order Status: Sent Lab Status: No result Specimen: BLOOD HISTOPLASMA ANTIGEN [[id number]] Collected: 07/28/221423 Order Status: Canceled Lab Status: No result Specimen: BLOOD GLUCOSE, BODY FLUID [[id number]] Order Status: Canceled Lab Status: No result Specimen: PLEURAL FLUID PH BODY FLUID [[id number]] Order Status: Canceled Lab Status: No result Specimen: PLEURAL FLUID CULTURE, BODY FLUID W/ GRAM STAIN [[id number]] Order Status: Canceled Lab Status: No result Specimen: PLEURAL FLUID CULTURE, ANAEROBIC [[id number]] Order Status: Canceled Lab Status: No result Specimen: PLEURAL FLUID CULTURE, FUNGUS [[id number]] Order Status: Canceled Lab Status: No result Specimen: PLEURAL FLUID LDH BODY FLUID [[id number]] Collected: 07/27/221029 Order Status: Completed Lab Status: Final result Updated: 07/27/22 1522 Specimen: PLEURAL FLUID FLUID LDH >4,000 UNITS/L Comment: REFERENCE RANGE NOT ESTABLISHED FOR THIS BODY FLUID. SOURCE (FLUID) PLEURAL FLUID CELL COUNT W/ DIFF BODY FLUID [[id number]] Collected: 07/27/221029 Order Status: Completed Lab Status: Final result Updated: 07/27/22 1545 Specimen: PLEURAL FLUID SOURCE (FLUID) PLEURAL FLUID FL WBC 144.450 x10'3/uL Comment: REFERENCE RANGE NOT ESTABLISHED FL RBC 0.090 x10'6/uL Comment: REFERENCE RANGE NOT ESTABLISHED DIFFERENTIAL MANUAL DIFFERENTIAL PERFORMED ON CONCENTRATED CYTOSPIN CELLS COUNTED 100 No COUNTED SEGS (FLUID) 97 % LYMPHS (FLUID) 3 % PROTEIN TOTAL FLUID [[id number]] Collected: 07/27/221029 Order Status: Completed Lab Status: Final result Updated: 07/27/22 152 Specimen: PLEURAL FLUID PROTEIN (FLUID) 3.5 G/DL Comment: REFERENCE RANGE NOT ESTABLISHED FOR THIS BODY FLUID. SOURCE (FLUID) PLEURAL FLUID CULTURE, BODY FLUID W/ GRAM STAIN [[id number]] Collected: 07/27/221029 Order Status: Canceled Lab Status: No result Specimen: PLEURAL FLUID CULTURE, ANAEROBIC [[id number]] Collected: 07/27/221029 Order Status: Canceled Lab Status: No result Specimen: PLEURAL FLUID CULTURE, BODY FLUID W/ GRAM STAIN [[id number]] (Susceptibility) Collected: 07/27/221029 Order Status: Completed Lab [...] Sensitive TRIMETH-SULFAMETH. Resistant VANCOMYCIN Sensitive CULTURE, ANAEROBIC [[id number]] (Susceptibility) Collected: 07/27/221029 Order Status: Completed Lab Status: Final result Updated: 08/01/22 0826 Specimen: SITE Spec. Description SITE: RT PLEURAL FLUID Special Requests: NO SPECIAL REQUEST Culture Result: -- FEW MICROAEROPHILIC STREPTOCOCCUS Susceptibility Microaerophilic streptococcus ARLEN (ETEST) CEFOTAXIME 0.023 Sensitive PENICILLIN G 0.008 Sensitive BLASTOMYCES AG MVISTA (TM), EIA [[id number]] Order Status: No result Lab Status: No result Specimen: BLOOD BLASTOMYCES AG MVISTA (TM), EIA [[id number]] Order Status: No result Lab Status: No result Specimen: URINE CORONAVIRUS (COVID 19) PCR - Asymptomatic patients, may be completed at physician discretion [[id number]] Collected: 07/25/222031 Order Status: Sent Lab Status: No result Specimen: NASOPHARYNGEAL SWAB STREP PNEUMO AG URINE [[id number]] Collected: 07/25/222030 Order Status: Completed Lab Status: [...] Type URINE VOIDED MRSA PCR nares Screening [[id number]] Collected: 07/25/222030 Order Status: Canceled Lab Status: No result Specimen: NASAL CULTURE, BACTERIA, BLOOD [[id number]] Collected: 07/25/221416 Order Status: Completed Lab Status: Final result Updated: 07/30/222144 Specimen: BLOOD Spec. Description BLOOD Special Requests: NO SPECIAL REQUEST Culture Result: NO GROWTH 5 DAYS CULTURE, BACTERIA, BLOOD [[id number]] Collected: 07/25/221415 Order Status: Completed Lab Status: [...] counselling LANRE WINTER MD 2:57 PM 08/01/2022 NEYMAN SHEET METAL WORKER * Dayami Robbins MD - 08/01/2022 2:48 PM CSTSummary: [facility] ID progress note [facility] INFECTIOUS DISEASE PROGRESS NOTE Attending Provider:Dr. Robbins PCP: JOE TAM DO Reason for Consultation: Loculated pleural effusions, Pneumonia ASSESSMENT AND PLAN Ray Phillips is a 67-year-old male with medical history of chronic tobacco use who was transferred from [facility] near [place] for treatment resistant pneumonia and loculated pleural [...] understanding with plan. Thank you for consulting [facility] Infectious Disease, we will continue to follow. Paulina Dale APRN [facility] Infectious Disease 08/01/2022 Teaching physician note: Infectious Diseases Attending Physician: Patient personally interviewed and examined. Labs and vitals reviewed. [facility] Infectious Disease mid-level provider's note reviewed [...] 8 mL at 07/27/22 1016 lidocaine-EPINEPHrine 2 %-1:768163 injection 20 mL, 20 mL, Intradermal, Once, [...] Intravenous, See Admin Instructions, Tracy Yo MD NEYMAN SHEET METAL WORKER NEYMAN SHEET METAL WORKER NEYMAN SHEET METAL WORKER NEYMAN SHEET METAL WORKER * Adali Kenisha Henry, AVIAN KEEPER - 08/01/2022 11:14 AM CST [facility] PULMONOLOGY??PROGRESS??NOTE [...] We will continue to follow.? Adali Henry, AVIAN KEEPER 08/01/2022 SUBJECTIVE Patient wondering when his surgery [...] Katie Paula MD at 08/01/2022 7:49 PM JOURNEYMAN SHEET METAL WORKER NEYMAN SHEET METAL WORKER NEYMAN SHEET METAL WORKER Associated attestation - Katie Paula MD - 08/01/2022 7:49 PM JOURNEYMAN SHEET METAL WORKER [facility] Pulmonary and Critical Care Medicine Attending Note: [...] Pharmacy Consult per Dr. Srinath Tay Phone: [phone] 08/01/2022 1:35 PM Cosigned by Maria Antonia Quiñones PharmD at 08/01/2022 3:38 PM JOURNEYMAN SHEET METAL WORKER NEYMAN SHEET METAL WORKER NEYMAN SHEET METAL WORKER Associated attestation - Maria Antonia Quiñones PharmD - 08/01/2022 3:38 PM JOURNEYMAN SHEET METAL WORKER Next LVL will be Saturday 12 [...] VATS 08/02. Continue IMC status. CM following. NEYMAN SHEET METAL WORKER * Raquel Wetzel MD - 08/01/2022 [...] 8 mLat 07/27/22 1016 ??? lidocaine-EPINEPHrine 2 %-1:773129 injection 20 mL, 20 mL, Intradermal, Once, [...] (L) 08/01/2022 02:42 AM Cosigned by Ross Blakcburn MD at 08/02/2022 6:58 AM JOURNEYMAN SHEET METAL WORKER NEYMAN SHEET METAL WORKER NEYMAN SHEET METAL WORKER * Jena Hayes, SMITH - 07/31/2022 4:01 PM CST OT Treatment Discharge Recommendation: home with assistance Activity Recommendation for business employment specialist: Up with gait belt x1 assist [...] was notusing at home. Pt reports independence SOCIAL SERVICES ASSISTANT with ADLs, IADLS, and was driving. Pt [...] Assistance Independent UE Dressing Deficit Setup;Thread RUE;Thread LUE;recovery operator helper head;Pull around back;Pull down in back UE [...] Name: Ray Phillips Primary Language of learner: Greek Patient was educated on exercises transfers ADLs balance bed mobility therapy plan safety energy conservation. Education was completed one to one verbal this date. Preference of learning new concepts one to one verbal Barriers to education this date were fatigue. Response to education this date verbalized understanding verbalized recall asks questions demos with verbal cues demos adequately needs follow up needs assistance. NEYMAN SHEET METAL WORKER * Dayami Robbins MD - 07/31/2022 1:55 PM CSTSummary: [facility]I ID PROGRESS NOTE [facility] INFECTIOUS DISEASE PROGRESS NOTE Attending Provider:Dr. Robbins PCP: JOE TAM DO Reason for Consultation: Loculated pleural effusions, Pneumonia ASSESSMENT AND PLAN Ray Phillips is a 67-year-old male with medical history of chronic tobacco use who was transferred from [facility] near [place] for treatment resistant pneumonia and loculated pleural [...] understanding with plan. Thank you for consulting [facility] Infectious Disease, we will continue to follow. Paulina Dale APRN [facility] Infectious Disease 07/31/2022 Teaching physician note: Infectious Diseases Attending Physician: Patient personally interviewed and examined. Labs and vitals reviewed. [facility] Infectious Disease mid-level provider's note reviewed [...] NG Antimicrobial Regimen Unknown Abx regiment at [facility] Vancomycin IV 1.25g every 24h(07/25 [...] 8 mL at 07/27/22 1016 lidocaine-EPINEPHrine 2 %-1:012974 injection 20 mL, 20 mL, Intradermal, Once, [...] Intravenous, See Admin Instructions, Tracy Yo MD NEYMAN SHEET METAL WORKER NEYMAN SHEET METAL WORKER NEYMAN SHEET METAL WORKER * Karla Berrios, SOCIAL SERVICES ASSISTANT - 07/31/2022 1:40 PM CST PT Treatment Discharge Recommendation: home with assistance Activity Recommendation for business employment specialist: up with 1, 2ww, gait belt [...] was notusing at home. Pt reports independence SOCIAL SERVICES ASSISTANT with ADLs, IADLS, and was driving. Pt [...] Name: Ray Phillips Primary Language of learner: Greek Patient was educated on precautions transfers balance bed mobility therapy plan gait safety. Education was completed one to one verbal hands-on demonstration this date. Preference of learning new concepts one to one verbal hands-on demonstration Barriers to education this date were none. Response to education this date verbalized understanding. NEYMAN SHEET METAL WORKER * Patel Kelsey MD - 07/31/2022 [...] Katie Paula MD at 07/31/2022 4:44 PM JOURNEYMAN SHEET METAL WORKER NEYMAN SHEET METAL WORKER NEYMAN SHEET METAL WORKER Associated attestation - Katie Paula MD - 07/31/2022 4:44 PM JOURNEYMAN SHEET METAL WORKER [facility] Pulmonary and Critical Care Medicine [...] Procedure Component Value Units Date/Time CULTURE, FUNGUS [[id number]] Order Status: No result Lab Status: No result Specimen: BRONCHOALVEO LAV, RT LWR CULTURE TB/AFB OTHER (TYPE IN COMMENTS) [[id number]] Order Status: No result Lab Status: No result Specimen: BRONCHOALVEO LAV, RT LWR SMEAR,FLUOR STAIN,ACID FAST [[id number]] Order Status: No result Lab Status: No result Specimen: BRONCHOALVEO LAV, RT LWR CULTURE VIRAL RESPIRATORY RAPID [[id number]] Order Status: No result Lab Status: No result Specimen: BRONCHOALVEO LAV, RT LWR CULTURE RESPIRATORY W/ GRAM STAIN [[id number]] Order Status: No result Lab Status: No result Specimen: BRONCHIAL WASHING CULTURE, FUNGUS [[id number]] Order Status: No result Lab Status: No result Specimen: BRONCHIAL WASHING CULTURE TB/AFB OTHER (TYPE IN COMMENTS) [[id number]] Order Status: No result Lab Status: No result Specimen: BRONCHIAL WASHING SMEAR,FLUOR STAIN,ACID FAST [[id number]] Order Status: No result Lab Status: No result Specimen: BRONCHIAL WASHING CULTURE VIRAL RESPIRATORY RAPID [[id number]] Order Status: No result Lab Status: No result Specimen: BRONCHIAL WASHING CULTURE, QUANTITATIVE W/ GRAM STAIN [[id number]] Order Status: No result Lab Status: No result Specimen: BRONCHOALVEO LAV, RT LWR CULTURE, FUNGUS [[id number]] Collected: 07/30/221529 Order Status: No result Lab Status: In process Updated: 07/30/22 170 CULTURE RESPIRATORY W/ GRAM STAIN [[id number]] Collected: 07/30/221529 Order Status: Completed Lab Status: Preliminary result Updated: 07/30/222016 Specimen: SITE Spec. Description SITE: BRONCH WASH Special Requests: NO SPECIAL REQUEST Gram Stain Result -- MANY NEUTROPHILS SEEN Gram Stain Result NO ORGANISMS SEEN Culture Result: PENDING SMEAR,FLUOR STAIN,ACID FAST [[id number]] Collected: 07/30/22 1530 Order Status: No result Lab Status: In process Updated: 07/30/22 1703 CULTURE TB/AFB OTHER [[id number]] Collected: 07/30/221529 Order Status: No result Lab Status: In process Updated: 07/30/22 1704 CULTURE, QUANTITATIVE W/ GRAM STAIN [[id number]] Collected: 07/30/221529 Order Status: Completed Lab Status: Preliminary result Updated: 07/31/22 044 Specimen: SITE Spec. Description SITE: BAL RLL Special Requests: NO SPECIAL REQUEST Gram Stain Result <10 NEUTROPHILS PER LPF Gram Stain Result <10 EPITHELIAL CELLS PER LPF Gram Stain Result -- RARE GRAM NEGATIVE RODS Culture Result: PENDING CULTURE, FUNGUS [[id number]] Collected: 07/30/221529 Order Status: Canceled Lab Status: No result SMEAR,FLUOR STAIN,ACID FAST [[id number]] Collected: 07/30/221529 Order Status: Canceled Lab Status: No result CULTURE TB/AFB OTHER [[id number]] Collected: 07/30/221529 Order Status: Canceled Lab Status: No result CULTURE RESPIRATORY W/ GRAM STAIN [[id number]] Collected: 07/28/221424 Order Status: Completed Lab Status: [...] -- MODERATE PRESUMPTIVE TETE ALBICANS CULTURE, FUNGUS [[id number]] Collected: 07/28/221424 Order Status: Sent Lab Status: No result Specimen: SPUTUM, EXPECTORATED CULTURE TB/AFB OTHER (TYPE IN COMMENTS) [[id number]] Collected: 07/28/221424 Order Status: Sent Lab Status: No result Specimen: SPUTUM, EXPECTORATED SMEAR,FLUOR STAIN,ACID FAST [[id number]] Collected: 07/28/221424 Order Status: No result Lab Status: In process Updated: 07/28/22 1612 HISTOPLASMA ANTIGEN [[id number]] Collected: 07/28/221423 Order Status: Sent Lab Status: No result Specimen: BLOOD HISTOPLASMA ANTIGEN [[id number]] Collected: 07/28/221423 Order Status: Canceled Lab Status: No result Specimen: BLOOD GLUCOSE, BODY FLUID [[id number]] Order Status: Sent Lab Status: No result Specimen: PLEURAL FLUID PH BODY FLUID [[id number]] Order Status: Sent Lab Status: No result Specimen: PLEURAL FLUID CULTURE, BODY FLUID W/ GRAM STAIN [[id number]] Order Status: Canceled Lab Status: No result Specimen: PLEURAL FLUID CULTURE, ANAEROBIC [[id number]] Order Status: Canceled Lab Status: No result Specimen: PLEURAL FLUID CULTURE, FUNGUS [[id number]] Order Status: Canceled Lab Status: No result Specimen: PLEURAL FLUID LDH BODY FLUID [[id number]] Collected: 07/27/221029 Order Status: Completed Lab Status: Final result Updated: 07/27/221521 Specimen: PLEURAL FLUID FLUID LDH >4,000 UNITS/L Comment: REFERENCE RANGE NOT ESTABLISHED FOR THIS BODY FLUID. SOURCE (FLUID) PLEURAL FLUID CELL COUNT W/ DIFF BODY FLUID [[id number]] Collected: 07/27/221029 Order Status: Completed Lab Status: Final result Updated: 07/27/22 154 Specimen: PLEURAL FLUID SOURCE (FLUID) PLEURAL FLUID FL WBC 144.450 x10'3/uL Comment: REFERENCE RANGE NOT ESTABLISHED FL RBC 0.090 x10'6/uL Comment: REFERENCE RANGE NOT ESTABLISHED DIFFERENTIAL MANUAL DIFFERENTIAL PERFORMED ON CONCENTRATED CYTOSPIN CELLS COUNTED 100 No COUNTED SEGS (FLUID) 97 % LYMPHS (FLUID) 3 % PROTEIN TOTAL FLUID [[id number]] Collected: 07/27/221029 Order Status: Completed Lab Status: Final result Updated: 07/27/221521 Specimen: PLEURAL FLUID PROTEIN (FLUID) 3.5 G/DL Comment: REFERENCE RANGE NOT ESTABLISHED FOR THIS BODY FLUID. SOURCE (FLUID) PLEURAL FLUID CULTURE, BODY FLUID W/ GRAM STAIN [[id number]] Collected: 07/27/221029 Order Status: Canceled Lab Status: No result Specimen: PLEURAL FLUID CULTURE, ANAEROBIC [[id number]] Collected: 07/27/221029 Order Status: Canceled Lab Status: No result Specimen: PLEURAL FLUID CULTURE, BODY FLUID W/ GRAM STAIN [[id number]] (Susceptibility) Collected: 07/27/221029 Order Status: Completed Lab [...] Sensitive TRIMETH-SULFAMETH. Resistant VANCOMYCIN Sensitive CULTURE, ANAEROBIC [[id number]] Collected: 07/27/22 1030 Order Status: Completed Lab Status: Preliminary result Updated: 07/30/221740 Specimen: SITE Spec. Description SITE: RT PLEURAL FLUID Special Requests: NO SPECIAL REQUEST Culture Result: -- FEW MICROAEROPHILIC STREPTOCOCCUS BLASTOMYCES AG MVISTA (TM), EIA [[id number]] Order Status: No result Lab Status: No result Specimen: BLOOD BLASTOMYCES AG MVISTA (TM), EIA [[id number]] Order Status: No result Lab Status: No result Specimen: URINE CORONAVIRUS (COVID 19) PCR - Asymptomatic patients, may be completed at physician discretion [[id number]] Collected: 07/25/222031 Order Status: Sent Lab Status: No result Specimen: NASOPHARYNGEAL SWAB STREP PNEUMO AG URINE [[id number]] Collected: 07/25/222030 Order Status: Completed Lab Status: [...] Type URINE VOIDED MRSA PCR nares Screening [[id number]] Collected: 07/25/222030 Order Status: Canceled Lab Status: No result Specimen: NASAL CULTURE, BACTERIA, BLOOD [[id number]] Collected: 07/25/22 141 Order Status: Completed Lab Status: Final result Updated: 07/30/222144 Specimen: BLOOD Spec. Description BLOOD Special Requests: NO SPECIAL REQUEST Culture Result: NO GROWTH 5 DAYS CULTURE, BACTERIA, BLOOD [[id number]] Collected: 07/25/221415 Order Status: Completed Lab Status: [...] with the following history as recorded in [facility]: Problem List Items Addressed This Visit None [...] counselling LANRE WINTER MD 11:32 AM 07/31/2022 NEYMAN SHEET METAL WORKER * Estephania Long RN - 07/31/2022 9:09 AM CST 07/31/22 0909 Interdisciplinary Group Conference Team Members Present Physician;Case/Care management (Dr. Winter : [facility]) Barriers to Discharge Barriers Not Medically ready Not Medically ready follow up [facility] Status: Chest tube: s/p bronch Pulm following NEYMAN SHEET METAL WORKER * Ford Tay - 07/31/2022 8:47 [...] Pharmacy Consult per Dr. Srinath Tay Phone: [phone] 07/31/2022 12:56 PM Cosigned by Maria Antonia Quiñones, PharmD at 07/31/2022 2:22 PM JOURNEYMAN SHEET METAL WORKER NEYMAN SHEET METAL WORKER NEYMAN SHEET METAL WORKER NEYMAN SHEET METAL WORKER NEYMAN SHEET METAL WORKER * Raquel Wetzel MD - 07/31/2022 [...] 8 mLat 07/27/22 1016 ??? lidocaine-EPINEPHrine 2 %-1:911495 injection 20 mL, 20 mL, Intradermal, Once, [...] Ross Blackburn MD at 08/02/2022 6:57 AM JOURNEYMAN SHEET METAL WORKER NEYMAN SHEET METAL WORKER NEYMAN SHEET METAL WORKER * Dayami Robbins MD - 07/30/2022 2:10 PM CSTSummary: DESTINI ID CHART NOTE [facility] INFECTIOUS DISEASE CHART NOTE Reason for [...] any questions or concerns. Paulina Dale APRN [facility] Infectious Disease 07/30/2022 Teaching physician note: Infectious Diseases Attending Physician: Labs and vitals reviewed. [facility] Infectious Disease mid-level provider's note reviewed and findings verified. Case discussed with the Infectious Disease team NEYMAN SHEET METAL WORKER NEYMAN SHEET METAL WORKER NEYMAN SHEET METAL WORKER * Ford Tay - 07/30/2022 1:48 [...] Pharmacy Consult per Dr. Srinath Tay Phone: [phone] 07/30/2022 1:48 PM Cosigned by Maria Antonia Quiñones, PharmD at 07/31/2022 8:10 AM JOURNEYMAN SHEET METAL WORKER NEYMAN SHEET METAL WORKER NEYMAN SHEET METAL WORKER NEYMAN SHEET METAL WORKER * Patel Kelsey MD - 07/30/2022 1:20 PM CST DEST[facility]I PULMONOLOGY??PROGRESS??NOTE ?? Attending Provider:??Florencio Amaya MD PCP:??GRACIELA LEIGH MD? Reason for Admission:?Respiratory failure ([facility]) ?? Reason for Consult:??Respiratory failure, necrotizing [...] TPA/dornase per IR for loculations - Bronchoscopy steward/stewardess second class for this afternoon, est 3:00pm, will follow [...] Danielle Avelar DO at 07/30/2022 9:55 PM JOURNEYMAN SHEET METAL WORKER NEYMAN SHEET METAL WORKER NEYMAN SHEET METAL WORKER Associated attestation - Danielle Avelar DO - 07/30/2022 9:55 PM JOURNEYMAN SHEET METAL WORKER [facility] Pulmonary/Critical Care Medicine Attending Note: I rounded with the steel layer and residents. I interviewed and examined the [...] equipment recommendation: TBD Activity Recommendation for business employment specialist: up for all meals in chair, [...] not using at home. Pt reports independence SOCIAL SERVICES ASSISTANT with ADLs, IADLS, and was driving. Pt [...] Name: Ray Phillips Primary Language of learner: Greek Patient was educated on precautions transfers ADLs balance bed mobility therapy plan safety. Education was completed one to one this date. Preference of learning new concepts one to one Barriers to education this date were none. Response to education this date needs follow up. NEYMAN SHEET METAL WORKER * Florencio Amaya MD - 07/30/2022 [...] nebulizer solution 3 mL 3 mL Nebulization [id number] Stevan Yo MD 3 mL at 07/30/22 1120 ??? lidocaine (XYLOCAINE) 1 % injection SOLN Code/Trauma/Sedation Med Raul Osuna MD 8 mL at 07/27/22 1016 ??? lidocaine-EPINEPHrine 2 %-1:685118 injection 20 mL 20 mL Intradermal Once [...] high likelihood for decompensation. FLORENCIO AMAYA MD NEYMAN SHEET METAL WORKER * Angela Dawkins RN - 07/30/2022 10:05 AM CSTSummary: D/C plans IDBR done with Dr Beatrice HARRIS MD to discuss POC/D/C plans. See notes below. 07/30/22 1005 Interdisciplinary Group Conference Team Members Present Physician;Case/Care management Barriers to Discharge Barriers Not Medically ready Not Medically ready follow up Pt to continue [facility] status-necrotizing pneumonia, chest tube, having Bronchoscopy today with cultues. CM following. PT/OT recs home with assist when able. CM following. NEYMAN SHEET METAL WORKER * Patel Kelsey MD - 07/29/2022 [...] Patti Pineda MD at 07/29/2022 1:05 PM JOURNEYMAN SHEET METAL WORKER NEYMAN SHEET METAL WORKER NEYMAN SHEET METAL WORKER Associated attestation - Patti Pineda MD - 07/29/2022 1:05 PM JOURNEYMAN SHEET METAL WORKER Kenisha Brizuela MD, I rounded with [...] Q24H Tracy Yo MD Stopped at 07/28/22 0435 ??? ceFEPIme (MAXIPIME) 2 g in sodium [...] nebulizer solution 3 mL 3 mL Nebulization [id number] Stevan Yo MD 3 mL at 07/29/22 0832 ??? lidocaine (XYLOCAINE) 1 % injection SOLN Code/Trauma/Sedation Med Raul Osuna MD 8 mL at 07/27/22 1016 ??? lidocaine-EPINEPHrine 2 %-1:370498 injection 20 mL 20 mL Intradermal Once [...] [facility] Pneumonia Acute hypoxic resp [...] high likelihood for decompensation. FLORENCIO AMAYA MD NEYMAN SHEET METAL WORKER NEYMAN SHEET METAL WORKER * Alfred Hill, PharmD, [facility] - 07/29/2022 11:04 AM CST [...] Pharmacy Consult per Dr. Srinath Hill, PharmD, [facility] Phone: [phone] 07/29/2022 11:04 AM NEYMAN SHEET METAL WORKER * Patel Kelsey MD - 07/28/2022 [...] Patti Pineda MD at 07/28/2022 1:59 PM JOURNEYMAN SHEET METAL WORKER NEYMAN SHEET METAL WORKER NEYMAN SHEET METAL WORKER Associated attestation - Patti Pineda MD - 07/28/2022 1:59 PM JOURNEYMAN SHEET METAL WORKER Kenisha Brizuela MD, I rounded with [...] nebulizer solution 3 mL 3 mL Nebulization [id number] Stevan Yo MD 3 mL at 07/28/22 0811 ??? lidocaine (XYLOCAINE) 1 % injection SOLN Code/Trauma/Sedation Med Raul Osuna MD 8 mL at 07/27/22 1016 ??? lidocaine-EPINEPHrine 2 %-1:784338 injection 20 mL 20 mL Intradermal Once [...] high likelihood for decompensation. FLORENCIO AMAYA MD NEYMAN SHEET METAL WORKER * Joann HawthorneD, [facility] - 07/28/2022 10:12 AM CST [...] Pharmacy Consult per Dr. Srinath Hill, PharmD, [facility] Phone: [phone] 07/28/2022 10:12 AM NEYMAN SHEET METAL WORKER * Florencio Amaya MD - 07/27/2022 [...] 1 tablet 1 tablet Oral Q6H PRN Trayc Yo MD 1 tablet at 07/26/22 1521 ??? influenza virus vaccine (QUAD) injection 0.5 mL 0.5 mL Intramuscular Once PRN Florencio Amaya MD ??? ipratropium-albuterol (DUONEB) 0.5-2.5 (3) MG/3ML nebulizer solution 3 mL 3 mL Nebulization [id number] Stevan Yo MD 3 mL at 07/27/22 1142 ??? lidocaine (XYLOCAINE) 1 % injection SOLN Code/Trauma/Sedation Med Raul Osuna MD 8 mL at 07/27/22 1016 ??? lidocaine-EPINEPHrine 2 %-1:035547 injection 20 mL 20 mL Intradermal Once [...] high likelihood for decompensation. FLORENCIO AMAYA MD NEYMAN SHEET METAL WORKER NEYMAN SHEET METAL WORKER * Patel Kelsey MD - 07/27/2022 [...] Instructions ??? sodium chloride 250 mL (07/27/22 5085) PRN: acetaminophen, albuterol sulfate HFA, cyclobenzaprine, fentaNYL, [...] Patti Pineda MD at 07/27/2022 3:23 PM JOURNEYMAN SHEET METAL WORKER NEYMAN SHEET METAL WORKER NEYMAN SHEET METAL WORKER Associated attestation - Patti Pineda MD - 07/27/2022 3:23 PM JOURNEYMAN SHEET METAL WORKER IKenisha MD, I rounded with RT, [...] tube placement Interventional Radiologist: Dr. Raul Osuna Community Affairs Manager: RODNEY NOLASCO MD Anesthesia: IV conscious [...] Raul Osuna MD at 07/27/2022 1:54 PM JOURNEYMAN SHEET METAL WORKER NEYMAN SHEET METAL WORKER NEYMAN SHEET METAL WORKER NEYMAN SHEET METAL WORKER Associated attestation - Raul Osuna MD - 07/27/2022 1:54 PM JOURNEYMAN SHEET METAL WORKER I was present during all critical and santos portions of the procedure(s) and immediately available [facility] services the entire duration. See [...] desires to proceed. RODNEY NOLASCO MD 07/27/2022 NEYMAN SHEET METAL WORKER * Angela Dawkins RN - 07/27/2022 [...] pt. CM following for safe D/C plans. NEYMAN SHEET METAL WORKER * Michaelle Nielsen MD - 07/27/2022 [...] culture as soon as possible. Will follow. NEYMAN SHEET METAL WORKER * Katelin Cuenca, OT - 07/27/2022 8:42 AM CSTSummary: OT EVAL OT Initial Evaluation Discharge Recommendation: home with assistance Activity Recommendation for business employment specialist: UP with 1 2ww GB 07/27/22 [...] not using at home. Pt reports independence SOCIAL SERVICES ASSISTANT with ADLs, IADLS, and was driving. Pt [...] session Pt reports independence as functional status SOCIAL SERVICES ASSISTANT. Pt presents with pain, SOB, weakness, decreased [...] functional transfers in room and bathroom with [place] in order to increase independence with functional transfers. Pt will increase standing activity balance using for 3-5 minutes with independence order to increase independence with ADLs, functional transfers, and leisure activities. Pt will perform all LB dressing using AE PRN including clothing retrieval with Modified [place] in order to increase independence with ADLs. Pt will brush teeth, wash face, brush hair, and wash hands standing at sink with [place] in order to increase independence with ADLs. Pt will perform all toileting tasks including clothing management with [place] in order to increase independence with functional transfers and ADLs. Pt will bathe whole body and wash hair seated on shower chair with Modified [place] in order to increase independence with ADLs. Pt will perform supine to sit and sit to supine bed mobility with [place] in order to increaseindependence with ADLs, transitional [...] use of techniques during functional activities with [place] in order to increase overall activity tolerance [...] Name: Ray Phillips Primary Language of learner: Greek Patient Spouse educated on precautions exercises transfers ADLs balance bed mobility equipment therapy plan gait safety. Education was completed one to one verbal hands-on this date. Preference of learning new concepts one to one verbal hands-on Barriers to education this date were pain fatigue. Response to education this date verbalized understanding needs follow up needs assistance. NEYMAN SHEET METAL WORKER * Joann CaldwellD - 07/27/2022 8:37 AM [...] Consult per Dr. Srinath Quiñones, PharmD Phone: [phone] 07/27/2022 8:37 AM NEYMAN SHEET METAL WORKER NEYMAN SHEET METAL WORKER * Angela Dawkins RN - 07/27/2022 8:35 AM CSTSummary: D/C plans Met with pt and ex /emergency contact, Maite Eldridge at bedside to assess/discuss CM needs/safe D/C plans. PCP Dr Jany CUEVAS. Meds [facility] Leonardo CUEVAS. States he lives with emergency contact, Maite Eldridge in 1 story home with four steps in/out of home. States he had Pfizer COVID vaccines x2, booster x1. [facility] does not have any DME or [...] Dressing Assistance No Behavior Oriented;Cooperative Communication Talks;Understands Greek Socioeconomic Needs Caregiver Needed No At Risk [...] Patient expects to be discharged to: Home NEYMAN SHEET METAL WORKER * Charly Morillo, PT - 07/27/2022 8:27 AM CST PT Initial Evaluation Discharge Recommendation: home with assistance Activity Recommendation for business employment specialist: Up with 1 GB 07/27/22 1200 Therapy [...] not using at home. Pt reports independence SOCIAL SERVICES ASSISTANT with ADLs, IADLS, and was driving. Pt [...] perform supine to/from sitting at EOB with [place] to improve mobility. Pt. will be able to perform sit to/from standing with modified independence using wheeled walker toimprove independence. Pt. will be able to ambulate 300 feet with Modified [place] using wheeled walker to help improve strength and functional independence. Pt. will be able to maintain dynamic sitting balance on soft surface with [place] to improve functional mobility. Pt. will be able to maintain static standing balance 5-10 minutes with Modified [place] using wheeled walker to improve independence. Pt. will be able to maintain dynamic standing balance during side-stepping L/R and marching with Modified [place] using wheeled walker to improve functional mobility. Education: Primary Learners Name: Ray Phillips Primary Language of learner: Greek Patient was educated on precautions exercises transfers ADLs balance bed mobility equipment therapy plan gait safety. Education was completed verbal hands-on demonstration this date. Preference of learning new concepts verbal hands-on demonstration Barriers to education this date were pain. Response to education this date needs follow up. NEYMAN SHEET METAL WORKER * Joann HartleyD - 07/26/2022 3:08 [...] Consult per Dr. Srinath STEVE, PharmD Phone: [phone] 07/26/2022 3:08 PM NEYMAN SHEET METAL WORKER * Florencio Amaya MD - 07/26/2022 [...] nebulizer solution 3 mL 3 mL Nebulization [id number] Stevan Yo MD 3 mL at 07/26/22 0745 ??? lidocaine-EPINEPHrine 2 %-1:889644 injection 20 mL 20 mL Intradermal Once [...] high likelihood for decompensation. FLORENCIO AMAYA MD NEYMAN SHEET METAL WORKER * Nan Gomez RN - 07/26/2022 [...] potential discharge needs. Outcome: Met This Shift NEYMAN SHEET METAL WORKER * Ann Hammond NP - 07/26/2022 2:00 AM CST Pt seen at bedside, cta reviewed, Saturations 94% on 14l HFNC, Viji hgb 7.5 Does not appear dyspneic at rest, Repeat labs/abg ordered, D/w intnsivist Will need IR consult CT surgery consult in am- low threshold to transfer to ICU for hemodynamic instability or worsening resp status NEYMAN SHEET METAL WORKER * Joann SalterD - 07/25/2022 5:55 PM [...] Consult per Dr. Srinath IRBY, PharmD Phone: [phone] 07/25/2022 5:55 PM NEYMAN SHEET METAL WORKER documented in this encounter H&P Notes [...] during recuperation were discussed with the patient/family/personal artists' booking representative. Reasonable alternatives to the patient's proposed procedure/surgery including benefits, risks, and side effects related to the alternatives and the risks related to not receiving the proposed care were also discussed with the patient/family/personal artists' booking representative. Questions were answered and the patient /family/personal artists' booking representative verbalized understanding and desires to proceed. Cosigned by Ross Blackburn MD at 08/03/2022 11:37 AM JOURNEYMAN SHEET METAL WORKER NEYMAN SHEET METAL WORKER NEYMAN SHEET METAL WORKER Source Note - Raquel Wetzel MD - 07/26/2022 11:38 AM JOURNEYMAN SHEET METAL WORKER DESTINI Thoracic Surgery Consult Reason for [...] was not improvingso he was transferred to [facility] were CT of the chest was [...] Ross Blackburn MD at 07/27/2022 6:52 AM JOURNEYMAN SHEET METAL WORKER NEYMAN SHEET METAL WORKER NEYMAN SHEET METAL WORKER * Tracy Yo MD - 07/25/2022 1:55 PM CST Attending Provider: Tracy Yo,* PCP: GRACIELA LEIGH MD Ray Phillips is an 67-year-old male. Reason for Admission: Respiratory failure (CMS/[facility]) HPI: 67-year-old male with past medical history significant for chronic back pain due to back trauma 20 years ago, anxiety/depression, tobacco abuse who presents to [facility] with complaint of shortness of breath. He was diagnosed with pneumonia and was being treated with antibiotics but his symptoms reportedly did not improve. His chest CT showed diffuse pulmonary disease consistent with pneumonia and a loculated right pleural effusion. Upon arrival to [facility], patient reports intermittent shortness of breath. [...] Mechanical DVT prophylaxis Tracy Yo MD 07/25/2022 NEYMAN SHEET METAL WORKER documented in this encounter Procedure Notes [...] sent to cytology and microbiology Kenisha Pineda NEYMAN SHEET METAL WORKER documented in this encounter Consult Notes [...] was not improvingso he was transferred to [facility] were CT of the chest was [...] Ross Blackburn MD at 07/27/2022 6:52 AM JOURNEYMAN SHEET METAL WORKER NEYMAN SHEET METAL WORKER NEYMAN SHEET METAL WORKER * Michaelle Nielsen MD - 07/26/2022 11:23 AM CSTSummary: DESTINI ID Consult Note DESTINI INFECTIOUS DISEASE CONSULT NOTE Consulting Provider: Attending Provider: Florencio Amaya MD PCP: GRACIELA LEIGH MD Reason for Consultation: Loculated pleural effusions, Pneumonia History of Present Illness: Ray Phillips is a 67-year-old male with medical history of chronic tobacco use who was transferred from [facility] near [place] for treatment resistant pneumonia and loculated pleural effusions. Prior to hospitalization, patient had 1 week of daily hemoptysis, shortness of breath, and right sided lower chest pain. Reports the hemoptysis was about the size of a silver dollar. He had hemoptysis about one year ago, but it resolved spontaneously without medical intervention. He went to [facility] where he was diagnosed with pneumonia. He was started on antibiotics. Further imaging was concerning for loculated pleural effusions and possible malignancy according the patient. He was transferred to [facility] for further care. He was [...] Pending Antimicrobial Regimen Unknown Abx regiment at [facility] Vancomycin IV 1.25g every 24h(07/25 - present) Cefepime IV 2g every 12h(07/25 - present) Azithromycin IV 500mg every 24 hours (07/25 - present) ASSESSMENT AND PLAN Ray Phillips is a 67-year-old male with medical history of chronic tobacco use who was transferred from [facility] near [place] for treatment resistant pneumonia and loculated pleural [...] studies independently reviewed, agree with the above. NEYMAN SHEET METAL WORKER NEYMAN SHEET METAL WORKER NEYMAN SHEET METAL WORKER * Patel Kelsey MD - 07/26/2022 11:12 AM CST DESTINI PULMONOLOGY CONSULT NOTE Attending Provider: Florencio Amaya MD PCP: GRACIELA LEIGH MD Reason for Admission: Respiratory failure ([facility]) Reason for Consult: Respiratory failure, necrotizing [...] this time frame as well. Presented to [facility] last Saturday and started on antibiotics, CT imaging done and showed what was noted above. Transferred to [facility] for further treatment. He is currently on antibiotics and steroids. He has history of smoking 1ppd for past 50 years. Never had lung cancer screening in past. Follows in [place], [place]. He quit smoking 1.5 weeks ago. He has brother with lung cancer. His mother and two sisters also had unknown cancer type. 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 He states he wore protective gear at that time. Travel to [place] in past 6 months, no other travel [...] Patti Pineda MD at 07/26/2022 12:41 PM JOURNEYMAN SHEET METAL WORKER NEYMAN SHEET METAL WORKER NEYMAN SHEET METAL WORKER Associated attestation - Patti Pineda MD - 07/26/2022 12:41 PM JOURNEYMAN SHEET METAL WORKER IKenisha MD, I was asked to [...] arm scar from brown recluse spider bite. NEYMAN SHEET METAL WORKER * Charlene Crow RN - 07/25/2022 [...] Will speak with nurse about further options. NEYMAN SHEET METAL WORKER documented in this encounter OR Notes * Brief Op Note - JOSEPH Whitehead - 08/02/2022 9:28 AM CST HS Brief Op HSHSTHORACOSCOPY (VATS) WITH RIGHT DECORICATION Procedure Note Ray Phillips 08/02/2022 0730 Procedure(s) (LRB): THORACOSCOPY (VATS) WITH RIGHT DECORICATION (Right) Surgeon(s): Ross Blackburn MD Community Affairs Manager: Cross Tie Turner: JOSEPH Whitehead Anesthesia: General Pre-Op Diagnosis: PLEURAL [...] Ross Blackburn MD at 08/03/2022 11:37 AM JOURNEYMAN SHEET METAL WORKER NEYMAN SHEET METAL WORKER NEYMAN SHEET METAL WORKER * Op Note - Ross Blackburn MD - 08/02/2022 12:00 AM CST PREOPERATIVE DIAGNOSES: Trapped lung, empyema, loculated pleural effusion, pneumonia. POSTOPERATIVE DIAGNOSES: Trapped lung, empyema, loculated pleural effusion, pneumonia. PROCEDURES: Bronchoscopy, right thoracoscopy, decortication of the lung, multilevel intercostal nerve block. SURGEON: Ross Blackburn MD CORRESPONDENCE TRANSCRIBER: JOSEPH Flower TYPE OF ANESTHESIA: General. INDICATIONS: [...] to create a multilevel intercostal nerve block. V09-Gigidh chest tube was placed and the lung was reexpanded. The trocar sites injected with 0.25% Marcaine and closed including subcuticular skin stitches. Sterile dressings applied. Tolerated well without complication. Noted at completion of procedure, all counts were correct. #[id number] /REG/YAYA/CELESTINA NEYMAN SHEET METAL WORKER * Brief Op Note - Raul Osuna MD - 07/27/2022 12:11 PM CST PROCEDURE: CT-guided right thoracostomy tube placement Indication: Necrotizing pneumonia with loculated hydropneumothorax Physicians: Raul Osuna M.D. (attending); Rodney Nolasco M.D. (resident) Following informed consent, including discussion of procedural risks, the patient was place in the left lateral decubitus position on the CT table and [place] protocol was observed to verify correct patient, [...] CT. The tract was dilated to 12 Bahamian. Duringdilation, there was temporary retraction of the [...] will be monitored to determine further management. NEYMAN SHEET METAL WORKER documented in this encounter Plan of Treatment Pending Results Name Type Priority Associated Diagnoses Date /Time USV VAST TEAM MIDLINE INSERT >5YR US VASC STAT 07/25/2022 5:18 PM JOURNEYMAN SHEET METAL WORKER Scheduled Orders Name Type Priority Associated [...] transitions and discharge planning Lifestyle Angela Pena, MOTION STUDY ENGINEER documented as of this encounter Procedures Procedure Name Priority Date/Time Associated Diagnosis Comments XR CHEST PA OR AP 1V Today 08/08/2022 5:37 AM JOURNEYMAN SHEET METAL WORKER COMPREHENSIVE METABOLIC PANEL Routine 08/08/2022 2:22 AM JOURNEYMAN SHEET METAL WORKER CBC W/DIFF AUTOMATED Routine 08/08/2022 2:22 AM JOURNEYMAN SHEET METAL WORKER HEMOGLOBIN AND HEMATOCRIT STAT 08/07/2022 10:12 AM JOURNEYMAN SHEET METAL WORKER XR CHEST PA OR AP 1V Today 08/07/2022 5:57 AM JOURNEYMAN SHEET METAL WORKER HOME O2 EVAL Routine 08/06/2022 12:48 PM JOURNEYMAN SHEET METAL WORKER XR CHEST PA OR AP 1V Today 08/06/2022 5:28 AM JOURNEYMAN SHEET METAL WORKER COMPREHENSIVE METABOLIC PANEL Routine 08/06/2022 4:27 AM JOURNEYMAN SHEET METAL WORKER CBC W/DIFF AUTOMATED Routine 08/06/2022 4:27 AM JOURNEYMAN SHEET METAL WORKER VANCOMYCIN TIMED 08/06/2022 4:27 AM JOURNEYMAN SHEET METAL WORKER HOME O2 EVAL Routine 08/05/2022 2:41 PM JOURNEYMAN SHEET METAL WORKER TYPE & SCREEN Routine 08/05/2022 10:53 AM JOURNEYMAN SHEET METAL WORKER XR CHEST PA OR AP 1V Today 08/05/2022 5:52 AM JOURNEYMAN SHEET METAL WORKER COMPREHENSIVE METABOLIC PANEL Routine 08/05/2022 2:11 AM JOURNEYMAN SHEET METAL WORKER CBC W/DIFF AUTOMATED Routine 08/05/2022 2:11 AM JOURNEYMAN SHEET METAL WORKER CT CHEST WO CON Today 08/04/2022 3:22 PM JOURNEYMAN SHEET METAL WORKER XR CHEST PA OR AP 1V Today 08/04/2022 5:27 AM JOURNEYMAN SHEET METAL WORKER COMPREHENSIVE METABOLIC PANEL Routine 08/04/2022 2:34 AM JOURNEYMAN SHEET METAL WORKER CBC W/DIFF AUTOMATED Routine 08/04/2022 2:34 AM JOURNEYMAN SHEET METAL WORKER XR CHEST PA OR AP 1V Today 08/03/2022 5:50 AM JOURNEYMAN SHEET METAL WORKER COMPREHENSIVE METABOLIC PANEL Routine 08/03/2022 2:22 AM [employer] WORKER CBC W/DIFF AUTOMATED Routine 08/03/2022 2:22 AM [employer] WORKER XR CHEST PORTABLE STAT 08/02/2022 9:5 8 AM [employer] WORKER CULTURE, TISSUE W/GRAM STAIN Nurse Collected Priority 08/02/2022 8:38 AM [employer] WORKER CULTURE, FUNGUS Nurse Collected Priority 08/02/2022 8:38 AM [employer] WORKER CULTURE TB/AFB OTHER Routine 08/02/2022 8:38 AM [employer] WORKER HC SMEAR ACID FAST/FLUOR-90 Routine 08/02/2022 8:38 AM [employer] WORKER CULTURE, ANAEROBIC Nurse Collected Priority 08/02/2022 8:38 AM [employer] WORKER PATHOLOGY Routine 08/02/2022 7:03 AM [employer] WORKER TYPE & SCREEN Routine 08/01/2022 11:11 PM [employer] WORKER BMP WITHOUT GLUCOSE TIMED 08/01/2022 1 1:31 AM [employer] WORKER VANCOMYCIN TIMED 08/01/2022 11:31 AM [employer] WORKER COMPREHENSIVE METABOLIC PANEL Routine 08/01/2022 2:42 AM [employer] WORKER CBC W/DIFF AUTOMATED Routine 08/01/2022 2:42 AM [employer] WORKER COMPREHENSIVE METABOLIC PANEL Routine 07/31/2022 11:13 AM [employer] WORKER CT CHEST WO CON JAC 07/31/2022 10:22 AM [employer] WORKER CBC W/DIFF AUTOMATED Routine 07/31/2022 9:41 AM [employer] WORKER XR CHEST PORTABLE Routine 07/31/2022 6:0 0 AM [employer] WORKER BRONCHOSCOPY Routine 07/30/2022 4:15 PM [employer] WORKER CULTURE RESPIRATORY W/ GRAM STAIN TIMED 07/30/2022 3:30 PM [employer] WORKER CULTURE, QUANTITATIVE W/ GRAM STAIN TIMED 07/30/2022 3:30 PM [employer] WORKER CULTURE VIRAL RESPIRATORY RAPID Routine 07/30/2022 3:30 PM [employer] WORKER CULTURE, FUNGUS TIMED 07/30/2022 3:30 PM [employer] WORKER CULTURE HERPES Routine 07/30/2022 3:30 PM [employer] WORKER CULTURE CMV Routine 07/30/2022 3:30 PM [employer] WORKER CULTURE TB/AFB OTHER Routine 07/30/2022 3:30 PM [employer] WORKER HC SMEAR ACID FAST/FLUOR-90 Routine 07/30/2022 3:30 PM [employer] WORKER BRONCHOSCOPY DIAGNOSTIC W/WASH 07/30/2022 2:45 PM [employer] WORKER PNEUMONIA Case Notes OC #1 07/30/22 MOVED FROM 07/[address] [facility] @1548 [place] BRONCHOSCOPY 07/30/2022 2:41 PM [employer] WORKER VANCOMYCIN TIMED 07/30/2022 6:17 AM [employer] WORKER XR CHEST PORTABLE Routine 07/30/2022 5:2 7 AM [employer] WORKER CYTOLOGY GENERIC Routine 07/30/2022 12:0 0 AM [employer] WORKER CYTOLOGY GENERIC Routine 07/30/2022 12:0 0 AM [employer] WORKER CULTURE RESPIRATORY W/ GRAM STAIN Nurse Collected Priority 07/28/2022 2:25 PM [employer] WORKER CULTURE, FUNGUS Nurse Collected Priority 07/28/2022 2:25 PM [employer] WORKER US ABD LIMITED Today 07/28/2022 11:39 AM [employer] WORKER BASIC METABOLIC PANEL Routine 07/28/2022 7:03 AM [employer] WORKER CBC W/DIFF AUTOMATED Routine 07/28/2022 7:03 AM [employer] WORKER VANCOMYCIN TIMED 07/28/2022 7:03 AM [employer] WORKER XR CHEST PORTABLE JAC 07/28/2022 12: 43 AM [employer] WORKER XR CHEST PORTABLE JAC 07/27/2022 4:2 2 PM [employer]ER USE ECHOCARDIOGRAM Today 07/27/2022 1: 13 PM [employer] WORKER IR MIDLINE PLACEMENT GREATER 3YR STAT 07/27/2022 11:20 AM [employer] WORKER CT GD CHEST TUBE INSERT RT Today 07/27/2022 10:57 AM [employer] WORKER LDH BODY FLUID Nurse Collected Priority 07/27/2022 10:30 AM [employer] WORKER PROTEIN TOTAL FLUID Nurse Collected Priority 07/27/2022 10:30 AM [employer] WORKER HC BODY FLUID CULTURE Routine 07/27/2022 10:30 AM [employer] WORKER CULTURE, ANAEROBIC Routine 07/27/2022 10 :30 AM [employer] WORKER CELL COUNT W/ DIFF BODY FLUID Nurse Collected Priority 07/27/2022 10:30 AM [employer] WORKER TRANSFUSE RED BLOOD CELLS Routine 07/27/2022 4:45 AM [employer] WORKER BMP WITHOUT GLUCOSE Routine 07/27/2022 2 :40 AM [employer] WORKER CBC W/DIFF AUTOMATED Routine 07/27/2022 2:40 AM [employer] WORKER HISTOPLASMA ANTIBODY PANEL Routine 07/26/2022 12:55 PM [employer] WORKER PROCALCITONIN (PCT) Routine 07/26/2022 1 2:55 PM [employer] WORKER HEMOGLOBIN AND HEMATOCRIT TIMED 07/26/2022 12:55 PM [employer] WORKER BLASTOMYCES AB PANEL CF ID Routine 07/26/2022 12:55 PM [employer] WORKER HAPTOGLOBIN, QUANT Routine 07/26/2022 9: 04 AM [employer] WORKER BLOOD SMEAR INTERPRETATION BY Routine 07/26/2022 9:04 AM [employer] MET[employer] WORKER XR CHEST PORTABLE JAC 07/26/2022 6:5 5 AM [employer] METAL WORKER SED RATE, ERYTHROCYTE (ESR) Routine 07/26/2022 2:38 AM [employer] MET[employer] WORKER COMPREHENSIVE METABOLIC PANEL Routine 07/26/2022 2:38 AM [employer] WORKER LDH, LACTATE DEHYDROGENASE Routine 07/26/2022 2:38 AM [employer] WORKER C-REACTIVE PROTEIN Routine 07/26/2022 2: 38 AM [employer] MET[employer] WORKER BLOOD GAS, ARTERIAL LAB STAT 07/26/2022 2:38 AM [employer] METAL WORKER CBC W/DIFF AUTOMATED STAT 07/26/2022 2:38 AM [employer] METAL WORKER CTA CHEST+ABD+PEL STAT 07/26/2022 12: 32 AM [employer] WORKER HEMOGLOBIN AND HEMATOCRIT TIMED 07/25/2022 8:56 PM [employer]ER RETICULOCYTE CT, AUTO Routine 07/25/2022 8:56 PM [employer] MET[employer] WORKER HC INFECT AGENT DETECT OPTICAL Nurse Collected Priority 07/25/2022 8:31 PM [employer] WORKER LEGIONELLA AG URINE Nurse Collected Priority 07/25/2022 8:31 PM [employer] WORKER HIV 1 ANTIGEN(S), WITH HIV-1 AND HIV-2 ANTIBODIES Routine 07/25/2022 5:23 PM [employer] WORKER HEMOGLOBIN AND HEMATOCRIT STAT 07/25/2022 5:23 PM [employer] WORKER HC MYCOPLASMA AB-90 Routine 07/25/2022 5:23 PM [employer] WORKER TYPE & SCREEN STAT 07/25/2022 5:23 PM [employer] WORKER PROTHROMBIN TIME, VENOUS Routine 07/25/2022 5:23 PM [employer] MET[employer] WORKER LDH, LACTATE DEHYDROGENASE Routine 07/25/2022 5:23 PM [employer] MET[employer] WORKER BLOOD SMEAR INTERPRETATION BY MD Routine 07/25/2022 5:23 PM [employer] WORKER CULTURE, BACTERIA, BLOOD Routine 07/25/2022 2:17 PM [employer] WORKER COMPREHENSIVE METABOLIC PANEL STAT 07/25/2022 2:16 PM [employer] MET[employer] WORKER CULTURE, BACTERIA, BLOOD Routine 07/25/2022 2:16 PM [employer] MET[employer] WORKER CBC W/DIFF AUTOMATED STAT 07/25/2022 2:16 PM [employer] MET[employer] WORKER PATHOLOGY Routine 07/25/2022 12:00 AM [employer] WORKER documented in this encounter Results * XR CHEST PA OR AP 1V (08/08/2022 5:37 AM J[employer] SHE[employer] METAL WORKER) Anatomical Region Laterality Modality Chest Radiographic Jasmina ging 08/08/2022 6:12 AM [employer] WORKER Impressions 08/08/2022 6:15 AM [employer] MET[employer] WORKER Impression: 1. ??Lines and tubes as described. 2. ??Persistent, but improving atelectasis in the lung bases. ??Scant effusions. Referred By: PROVIDER NON-STAFF Interpreted By: Antonio Lockett MD, 08/08/2022 6:12 AM Narrative 08/08/2022 6:15 AM [employer] SHE[employer] METAL WORKER Date: 08/08/2022 5:34 AM Exam: XR [...] (ABNORMAL) COMPREHENSIVE METABOLIC PANEL (08/08/2022 2:22 AM J[employer] SHE[employer] METAL WORKER) SODIUM S/P/B 138 136 - 145 MMOL/L 08/08/2022 3:09 AM [facility] POTASSIUM S/P/B 3.5 3.5 - 5.1 MMOL/L 08/08/2022 3:09 AM [facility] CHLORIDE S/P/B 105 98 - 107 MMOL/L 08/08/2022 3:09 AM [facility] CO2 28.9 21.0 - 32.0 MMOL/L 08/08/2022 3:09 AM [facility] GLUCOSE 123(H) 74 - 106 MG/DL 08/08/2022 3:09 AM [facility] BUN 9 7 - 18 MG/DL 08/08/2022 3:09 AM [facility] CREATININE S/P/B 0.66(L) 0.70 - 1.30 MG/DL 08/08/2022 3:09 AM [facility] CALCIUM S/P/B 8.1(L) 8.5 - 10.1 MG/DL 08/08/2022 3:09 AM [facility] BILIRUBIN TOTAL S/P/B 0.5 0.2 - 1.0 MG/DL 08/08/2022 3:09 AM [facility] ALKALINE PHOSPHATASE S/P/B 47 45 - 115 U/L 08/08/2022 3:09 AM [facility] AST 11(L) 15 - 37 U/L 08/08/2022 3:09 AM [facility] ALT 8(L) 16 - 61 U/L 08/08/2022 3:09 AM [facility] TOTAL PROTEIN S/P/B 5.2(L) 6.4 - 8.2 G/DL 08/08/2022 3:09 AM [facility] ALBUMIN S/P/B 1.7(L) 3.4 - 5.0 G/DL 08/08/2022 3:09 AM [facility] ANION GAP 4.1(L) 5.0 - 15.0 MMOL/L 08/08/2022 3:09 AM [facility] OSMOLALITY (CALC) 286 MOSM/KG 022 3:09 AM [facility] Comment:REFERENCE RANGE NOT ESTABLISHED GFR ESTIMATE >90 >90 ML/MIN/1. 73 M2 08/08/2022 3:09 AM [facility] GFR NOTES GFR REFERENCE S: 08/08/2022 3:09 AM [facility] Comment: THE ESTIMATED GFR IS CALCULATED [...] FAILURE: <15 ml/min/1.73 m2 08/08/2022 2:22 AM [employer]AL WORKER Lanre Winter MD LABORATORY Final Result [facility] [address] [place] [address], [id number] * (ABNORMAL) CBC W/DIFF AUTOMATED (08/08/2022 2:22 AM [employer] SHE[employer] METAL WORKER) WBC 3.7(L) 4.0 - 10.8 x10'3/uL 08/08/2022 2:32 AM [employer] MET[employer] WORKER [facility] RBC 2.33(L) 4.50 - 6.10 x10'6/uL 08/08/2022 2:32 AM [employer] MET[employer] WORKER [facility] HGB 7.4(L) 13.0 - 18.0 G/DL 08/08/2022 2:32 AM [employer] WORKER [facility] HCT 23.7(L) 37.0 - 52.0 % 08/08/2022 2:32 AM [employer] MET[employer] WORKER [facility] MCV 101.7(H) 78.0 - 100.0 FL 08/08/2022 2:32 AM [employer] MET[employer] WORKER [facility] MCH 31.8(H) 27.0 - 31.0 PG 08/08/2022 2:32 AM [employer] METAL WORKER [facility] MCHC 31.2(L) 33.0 - 36.0 G/DL 08/08/2022 2:32 AM [facility] RDW 14.9(H) 11.5 - 14.5 % 08/08/2022 2:32 AM [facility] PLT 186 150 - 350 x10'3/uL 08/08/2022 2:32 AM [facility] MPV 10.2 7.4 - 10.4 FL 08/08/2022 2:32 AM [facility] ABS. NEUTROPHILS 2.28 1.60 - 8.30 x10'3/uL 08/08/2022 2:32 AM [facility] ABS. LYMPHOCYTES 0.91 0.80 - 4.70 x10'3/uL 08/08/2022 2:32 AM [facility] ABS. MONOCYTES 0.40 0.00 - 1.50 x10'3/uL 08/08/2022 2:32 AM [facility] ABS. EOSINOPHILS 0.10 0.00 - 0.40 x10'3/uL 08/08/2022 2:32 AM [facility] ABS. BASOPHILS 0.01 0.00 - 0.20 x10'3/uL 08/08/2022 2:32 AM [facility] ABS. IMMATURE GRANULOCYTES 0.02 0.00 - 0.03 x10'3/uL 08/08/2022 2:32 AM [facility] ABS. NUCLEATED RBC'S 0.00 0.0 x10'3/uL 08/08/2022 2:32 AM [facility] 08/08/2022 2:22 AM [employer] WORKER Lanre Winter MD LABORATORY Final Result [facility] [address] [place] [address], [id number] * (ABNORMAL) HEMOGLOBIN AND HEMATOCRIT (08/07/2022 10:12 AM [employer] SHE[employer] METAL WORKER) HGB 7.7(L) 13.0 - 18.0 G/DL 08/07/2022 10:27 AM [employer] METAL WORKER [facility] HCT 23.7(L) 37.0 - 52.0 % 08/07/2022 10:27 AM [employer] METAL WORKER [facility] 08/07/2022 10:1 2 AM [employer] METAL WORKER Lanre Winter MD LABORATORY Final Result [facility] [address] [place] [address], [id number] * XR CHEST PA OR AP 1V (08/07/2022 5:57 AM J[employer] SHE[employer] METAL WORKER) Anatomical Region Laterality Modality Chest Radiographic Jasmina ging 08/07/2022 6:38 AM [employer] SHE[employer] METAL WORKER Impressions 08/07/2022 6:41 AM [employer] SHE[employer] METAL WORKER IMPRESSION: 1. Persistent bilateral pneumonia with persistent infiltrates in the lower lobes with mild bibasilar pleural effusions, again right larger than left. 2. ??Suspect a small retrocardiac hiatal hernia. Referred By: PROVIDER NON-STAFF Interpreted By: Karine Sher MD, 08/07/2022 6:38 AM Narrative 08/07/2022 6:41 AM [employer] SHE[employer] WORKER EXAMINATION: XR Portable CXR, 1 View [...] PA OR AP 1V (08/06/2022 5:28 AM J[employer] SHE[employer] METAL WORKER) Anatomical Region Laterality Modality Chest Radiographic Jasmina ging 08/06/2022 6:29 AM [employer] SHE[employer] METAL WORKER Impressions 08/06/2022 6:32 AM [employer] SHE[employer] METAL WORKER IMPRESSION: Stable chest. Referred By: PROVIDER NON-STAFF Interpreted By: Wali Gary MD, 08/06/2022 6:29 AM Narrative 08/06/2022 6:32 AM [employer] SHE[employer] METAL WORKER Examination: XR CHEST PA OR AP [...] * Vancomycin Random Level (08/06/2022 4:27 AM J[employer] SHE[employer] METAL WORKER) VANCOMYCIN RANDOM 15.7 MCG/ML 08/06/2022 5:08 AM [employer] SHE[employer] METAL WORKER [facility] Comment:REFERENCE RANGE NOT ESTABLISHED 08/06/2022 4:27 AM [employer] METAL WORKER Lanre Winter MD LABORATORY Final Result [facility] [address] [place] [address], [id number] * (ABNORMAL) COMPREHENSIVE METABOLIC PANEL (08/06/2022 4:27 AM [employer] SHE[employer] METAL WORKER) SODIUM S/P/B 140 136 - 145 MMOL/L 08/06/2022 5:10 AM [facility] POTASSIUM S/P/B 3.8 3.5 - 5.1 MMOL/L 08/06/2022 5:10 AM [facility] CHLORIDE S/P/B 107 98 - 107 MMOL/L 08/06/2022 5:10 AM [facility] CO2 27.3 21.0 - 32.0 MMOL/L 08/06/2022 5:10 AM [facility] GLUCOSE 87 74 - 106 MG/DL 08/06/2022 5:10 AM [facility] BUN 8 7 - 18 MG/DL 08/06/2022 5:10 AM [facility] CREATININE S/P/B 0.61(L) 0.70 - 1.30 MG/DL 08/06/2022 5:10 AM [facility] CALCIUM S/P/B 8.0(L) 8.5 - 10.1 MG/DL 08/06/2022 5:10 AM [facility] BILIRUBIN TOTAL S/P/B 0.3 0.2 - 1.0 MG/DL 08/06/2022 5:10 AM [facility] ALKALINE PHOSPHATASE S/P/B 43(L) 45 - 115 U/L 08/06/2022 5:10 AM [facility] AST 9(L) 15 - 37 U/L 08/06/2022 5:10 AM [facility] ALT 8(L) 16 - 61 U/L 08/06/2022 5:10 AM [facility] TOTAL PROTEIN S/P/B 5.2(L) 6.4 - 8.2 G/DL 08/06/2022 5:10 AM [facility] ALBUMIN S/P/B 1.6(L) 3.4 - 5.0 G/DL 08/06/2022 5:10 AM [facility] ANION GAP 5.7 5.0 - 15.0 MMOL/L 08/06/2022 5:10 AM J[employer] SHE[employer] METAL WORKER [facility] OSMOLALITY (CALC) 288 MOSM/KG 022 5:10 AM [facility] Comment:REFERENCE RANGE NOT ESTABLISHED GFR ESTIMATE >90 >90 ML/MIN/1. 73 M2 08/06/2022 5:10 AM [facility] GFR NOTES GFR REFERENCE S: 08/06/2022 5:10 AM [facility] Comment: THE ESTIMATED GFR IS CALCULATED [...] FAILURE: <15 ml/min/1.73 m2 08/06/2022 4:27 AM [employer] WORKER Lanre Winter MD LABORATORY Final Result [facility] [address] [place] [address], [id number] * (ABNORMAL) CBC W/DIFF AUTOMATED (08/06/2022 4:27 AM J[employer] SHE[employer] METAL WORKER) WBC 5.1 4.0 - 10.8 x10'3/uL 08/06/2022 4:45 AM [employer] SHE[employer] METAL WORKER [facility] RBC 2.32(L) 4.50 - 6.10 x10'6/uL 08/06/2022 4:45 AM [facility] HGB 7.6(L) 13.0 - 18.0 G/DL 08/06/2022 4:45 AM [facility] HCT 24.1(L) 37.0 - 52.0 % 08/06/2022 4:45 AM [facility] MCV 103.9(H) 78.0 - 100.0 FL 08/06/2022 4:45 AM [facility] MCH 32.8(H) 27.0 - 31.0 PG 08/06/2022 4:45 AM [facility] MCHC 31.5(L) 33.0 - 36.0 G/DL 08/06/2022 4:45 AM [facility] RDW 15.0(H) 11.5 - 14.5 % 08/06/2022 4:45 AM [facility] PLT 207 150 - 350 x10'3/uL 08/06/2022 4:45 AM [facility] MPV 10.4 7.4 - 10.4 FL 08/06/2022 4:45 AM [facility] ABS. NEUTROPHILS 3.59 1.60 - 8.30 x10'3/uL 08/06/2022 4:45 AM [facility] ABS. LYMPHOCYTES 0.90 0.80 - 4.70 x10'3/uL 08/06/2022 4:45 AM [facility] ABS. MONOCYTES 0.45 0.00 - 1.50 x10'3/uL 08/06/2022 4:45 AM [facility] ABS. EOSINOPHILS 0.09 0.00 - 0.40 x10'3/uL 08/06/2022 4:45 AM [facility] ABS. BASOPHILS 0.01 0.00 - 0.20 x10'3/uL 08/06/2022 4:45 AM [facility] ABS. IMMATURE GRANULOCYTES 0.03 0.00 - 0.03 x10'3/uL 08/06/2022 4:45 AM [facility] ABS. NUCLEATED RBC'S 0.00 0.0 x10'3/uL 08/06/2022 4:45 AM [employer] SHE[employer] WORKER [facility] 08/06/2022 4:27 AM J[employer] SHE[employer] METAL WORKER us Lanre Winter MD LABORATORY Final Result Performing Organization Address [facility] Co de Phone Number [facility] [address] [place] [address], [id number] * TYPE & SCREEN (08/05/2022 10:53 AM J[employer] SHE[employer] METAL WORKER) ABO/RH B POSITIVE 08/05/2022 12:05 PM [employer] METAL WORKER [facility] ANTIBODY SCREEN NEGATIVE 08/05/2022 12:05 PM [employer] SHE[employer] METAL WORKER [facility] SAMPLE EXPIRATION 08/08/2022,2 359 08/05/2022 11:06 AM J[employer] SHE[employer] METAL WORKER [facility] 08/05/2022 10:5 3 AM [employer] METAL WORKER us Lanre Winter MD BLOOD BANK TEST ORDERABLES Fin al Result Performing Organization Address [facility] de Phone Number [facility] [address] [place] [address], [id number] * XR CHEST PA OR AP 1V (08/05/2022 5:52 AM J[employer] SHE[employer] METAL WORKER) Anatomical Region Laterality Modality Chest Radiographic Jasmina ging 08/05/2022 7:35 AM J[employer] SHE[employer] METAL WORKER Impressions 08/05/2022 7:37 AM [employer] SHE[employer] MET[employer] WORKER IMPRESSION: Unchanged appearance of the chest when compared with the radiograph exam from yesterday. Ordered By: EDVIN POLLACK Interpreted By: Antonio Hill MD, 08/05/2022 7:35 AM Narrative 08/05/2022 7:37 AM J[employer] SHE[employer] MET[employer] WORKER Examination: XR CHEST PA OR AP [...] (ABNORMAL) COMPREHENSIVE METABOLIC PANEL (08/05/2022 2:11 AM J[employer] SHE[employer] METAL WORKER) SODIUM S/P/B 136 136 - 145 MMOL/L 08/05/2022 3:20 AM J[employer] SHE[employer] METAL WORKER [facility] POTASSIUM S/P/B 3.4(L) 3.5 - 5.1 MMOL/L 08/05/2022 3:20 AM J[employer] SHE[employer] METAL WORKER [facility] CHLORIDE S/P/B 104 98 - 107 MMOL/L 08/05/2022 3:20 AM [facility] CO2 27.9 21.0 - 32.0 MMOL/L 08/05/2022 3:20 AM [facility] GLUCOSE 114(H) 74 - 106 MG/DL 08/05/2022 3:20 AM [facility] BUN 11 7 - 18 MG/DL 08/05/2022 3:20 AM [facility] CREATININE S/P/B 0.58(L) 0.70 - 1.30 MG/DL 08/05/2022 3:20 AM [facility] CALCIUM S/P/B 7.9(L) 8.5 - 10.1 MG/DL 08/05/2022 3:20 AM [facility] BILIRUBIN TOTAL S/P/B 0.4 0.2 - 1.0 MG/DL 08/05/2022 3:20 AM [facility] ALKALINE PHOSPHATASE S/P/B 39(L) 45 - 115 U/L 08/05/2022 3:20 AM [facility] AST 8(L) 15 - 37 U/L 08/05/2022 3:20 AM [facility] ALT 8(L) 16 - 61 U/L 08/05/2022 3:20 AM [facility] TOTAL PROTEIN S/P/B 4.9(L) 6.4 - 8.2 G/DL 08/05/2022 3:20 AM [facility] ALBUMIN S/P/B 1.5(L) 3.4 - 5.0 G/DL 08/05/2022 3:20 AM [facility] ANION GAP 4.1(L) 5.0 - 15.0 MMOL/L 08/05/2022 3:20 AM [facility] OSMOLALITY (CALC) 282 MOSM/KG 022 3:20 AM [facility] Comment:REFERENCE RANGE NOT ESTABLISHED GFR ESTIMATE >90 >90 ML/MIN/1. 73 M2 08/05/2022 3:20 AM [employer] WORKER [facility] GFR NOTES GFR REFERENCE S: 08/05/2022 3:20 AM [facility] Comment: THE ESTIMATED GFR IS CALCULATED [...] FAILURE: <15 ml/min/1.73 m2 08/05/2022 2:11 AM [employer] WORKER Lanre Winter MD LABORATORY Final Result [facility] [address] [place] [address], [id number] * (ABNORMAL) CBC W/DIFF AUTOMATED (08/05/2022 2:11 AM [employer]) WBC 6.6 4.0 - 10.8 x10'3/uL 08/05/2022 2:39 AM [employer] [facility] RBC 2.17(L) 4.50 - 6.10 x10'6/uL 08/05/2022 2:39 AM [facility] HGB 7.0(L) 13.0 - 18.0 G/DL 08/05/2022 2:39 AM [employer] [facility] HCT 22.0(L) 37.0 - 52.0 % 08/05/2022 2:39 AM [facility] MCV 101.4(H) 78.0 - 100.0 FL 08/05/2022 2:39 AM [facility] MCH 32.3(H) 27.0 - 31.0 PG 08/05/2022 2:39 AM [facility] MCHC 31.8(L) 33.0 - 36.0 G/DL 08/05/2022 2:39 AM [facility] RDW 14.7(H) 11.5 - 14.5 % 08/05/2022 2:39 AM [facility] PLT 185 150 - 350 x10'3/uL 08/05/2022 2:39 AM [facility] MPV 11.0(H) 7.4 - 10.4 FL 08/05/2022 2:39 AM [facility] ABS. NEUTROPHILS 4.78 1.60 - 8.30 x10'3/uL 08/05/2022 2:39 AM [facility] ABS. LYMPHOCYTES 1.03 0.80 - 4.70 x10'3/uL 08/05/2022 2:39 AM [employer] [facility] ABS. MONOCYTES 0.68 0.00 - 1.50 x10'3/uL 08/05/2022 2:39 AM [employer] [facility] ABS. EOSINOPHILS 0.10 0.00 - 0.40 x10'3/uL 08/05/2022 2:39 AM [facility] ABS. BASOPHILS 0.01 0.00 - 0.20 x10'3/uL 08/05/2022 2:39 AM [facility] ABS. IMMATURE GRANULOCYTES 0.03 0.00 - 0.03 x10'3/uL 08/05/2022 2:39 AM [facility] ABS. NUCLEATED RBC'S 0.00 0.0 x10'3/uL 08/05/2022 2:39 AM [facility] 08/05/2022 2:11 AM [employer] Lanre Winter MD LABORATORY Final Result [facility] [address] [place] [address], [id number] * CT CHEST WO CON (08/04/2022 3:22 PM [employer]) Anatomical Region Laterality Modality Chest Computed Tomogra phy 08/04/2022 3:35 PM [employer] Impressions 08/04/2022 5:17 PM [employer] IMPRESSION: 1. Interval decrease in size [...] 08/04/2022 3:35 PM Narrative 08/04/2022 5:17 PM [employer] EXAMINATION: CT CHEST - NON CONTRAST [...] PA OR AP 1V (08/04/2022 5:27 AM [employer]) Anatomical Region Laterality Modality Chest Radiographic Jasmina ging 08/04/2022 6:43 AM [employer] Impressions 08/04/2022 6:44 AM [employer] IMPRESSION: ======== ?? 1. ??Increasing size of tiny right effusion with scattered right lower lung increasing infiltrates. ??Improving effusion on the left. Referred By: PROVIDER NON-STAFF Interpreted By: Mitch Carpenter MD, 08/04/2022 6:43 AM Narrative 08/04/2022 6:44 AM [employer] Examination: Chest Radiograph, 1 view Exam [...] (ABNORMAL) COMPREHENSIVE METABOLIC PANEL (08/04/2022 2:34 AM [employer]) SODIUM S/P/B 137 136 - 145 MMOL/L 08/04/2022 3:11 AM [employer] [facility] POTASSIUM S/P/B 3.7 3.5 - 5.1 MMOL/L 08/04/2022 3:11 AM [facility] CHLORIDE S/P/B 103 98 - 107 MMOL/L 08/04/2022 3:11 AM [facility] CO2 28.6 21.0 - 32.0 MMOL/L 08/04/2022 3:11 AM [facility] GLUCOSE 106 74 - 106 MG/DL 08/04/2022 3:11 AM [employer] [facility] BUN 12 7 - 18 MG/DL 08/04/2022 3:11 AM [facility] CREATININE S/P/B 0.62(L) 0.70 - 1.30 MG/DL 08/04/2022 3:11 AM [facility] CALCIUM S/P/B 7.9(L) 8.5 - 10.1 MG/DL 08/04/2022 3:11 AM [facility] BILIRUBIN TOTAL S/P/B 0.6 0.2 - 1.0 MG/DL 08/04/2022 3:11 AM [facility] ALKALINE PHOSPHATASE S/P/B 41(L) 45 - 115 U/L 08/04/2022 3:11 AM [facility] AST 11(L) 15 - 37 U/L 08/04/2022 3:11 AM [facility] ALT 11(L) 16 - 61 U/L 08/04/2022 3:11 AM [facility] TOTAL PROTEIN S/P/B 5.0(L) 6.4 - 8.2 G/DL 08/04/2022 3:11 AM [facility] ALBUMIN S/P/B 1.6(L) 3.4 - 5.0 G/DL 08/04/2022 3:11 AM [facility] ANION GAP 5.4 5.0 - 15.0 MMOL/L 08/04/2022 3:11 AM [facility] OSMOLALITY (CALC) 284 MOSM/KG 022 3:11 AM [facility] Comment:REFERENCE RANGE NOT ESTABLISHED GFR ESTIMATE >90 >90 ML/MIN/1. 73 M2 08/04/2022 3:11 AM [facility] GFR NOTES GFR REFERENCE S: 08/04/2022 3:11 AM [facility] Comment: THE ESTIMATED GFR IS CALCULATED [...] FAILURE: <15 ml/min/1.73 m2 08/04/2022 2:34 AM [employer] Lanre Winter MD LABORATORY Final Result [facility] [address] [place] [address], [id number] * (ABNORMAL) CBC W/DIFF AUTOMATED (08/04/2022 2:34 AM [employer]) WBC 8.5 4.0 - 10.8 x10'3/uL 08/04/2022 2:41 AM [employer] [facility] RBC 2.39(L) 4.50 - 6.10 x10'6/uL 08/04/2022 2:41 AM [facility] HGB 7.6(L) 13.0 - 18.0 G/DL 08/04/2022 2:41 AM [employer] [facility] HCT 24.4(L) 37.0 - 52.0 % 08/04/2022 2:41 AM [facility] MCV 102.1(H) 78.0 - 100.0 FL 08/04/2022 2:41 AM [employer] [facility] MCH 31.8(H) 27.0 - 31.0 PG 08/04/2022 2:41 AM [facility] MCHC 31.1(L) 33.0 - 36.0 G/DL 08/04/2022 2:41 AM [employer] [facility] RDW 14.8(H) 11.5 - 14.5 % 08/04/2022 2:41 AM [employer] [facility] PLT 178 150 - 350 x10'3/uL 08/04/2022 2:41 AM [facility] MPV 10.3 7.4 - 10.4 FL 08/04/2022 2:41 AM [facility] ABS. NEUTROPHILS 6.33 1.60 - 8.30 x10'3/uL 08/04/2022 2:41 AM [employer] [facility] ABS. LYMPHOCYTES 1.11 0.80 - 4.70 x10'3/uL 08/04/2022 2:41 AM [employer] [facility] ABS. MONOCYTES 0.85 0.00 - 1.50 x10'3/uL 08/04/2022 2:41 AM [employer] [facility] ABS. EOSINOPHILS 0.14 0.00 - 0.40 x10'3/uL 08/04/2022 2:41 AM [employer] [facility] ABS. BASOPHILS 0.01 0.00 - 0.20 x10'3/uL 08/04/2022 2:41 AM [employer] [facility] ABS. IMMATURE GRANULOCYTES 0.05(H) 0.00 - 0.03 x10'3/uL 08/04/2022 2:41 AM [employer] [facility] ABS. NUCLEATED RBC'S 0.00 0.0 x10'3/uL 08/04/2022 2:41 AM [employer] [facility] 08/04/2022 2:34 AM [employer] Lanre Winter MD LABORATORY Final Result [facility] [address] [place] [address], [id number] * XR CHEST PA OR AP 1V (08/03/2022 5:50 AM [employer]) Anatomical Region Laterality Modality Chest Radiographic Jasmina ging 08/03/2022 9:15 AM [employer] Impressions 08/03/2022 9:16 AM [employer] IMPRESSION: ======== ?? Developing tiny right pleural effusion otherwise stable interval appearance of infiltrates or atelectasis in the lung bases with probable left effusion. Referred By: PROVIDER NON-STAFF Interpreted By: Mitch Carpenter MD, 08/03/2022 9:15 AM Narrative 08/03/2022 9:16 AM [employer] Examination: Chest Radiograph, 1 view Exam [...] (ABNORMAL) COMPREHENSIVE METABOLIC PANEL (08/03/2022 2:22 AM [facility]) [facility] Signature SODIUM S/P/B 136 136 - 145 MMOL/L 08/03/2022 3:42 AM [facility] POTASSIUM S/P/B 3.8 3.5 - 5.1 MMOL/L 08/03/2022 3:42 AM [facility] CHLORIDE S/P/B 102 98 - 107 MMOL/L 08/03/2022 3:42 AM [facility] CO2 28.4 21.0 - 32.0 MMOL/L 08/03/2022 3:42 AM [facility] GLUCOSE 109(H) 74 - 106 MG/DL 08/03/2022 3:42 AM [facility] BUN 11 7 - 18 MG/DL 08/03/2022 3:42 AM [facility] CREATININE S/P/B 0.75 0.70 - 1.30 MG/DL 08/03/2022 3:42 AM [facility] CALCIUM S/P/B 8.0(L) 8.5 - 10.1 MG/DL 08/03/2022 3:42 AM [facility] BILIRUBIN TOTAL S/P/B 0.6 0.2 - 1.0 MG/DL 08/03/2022 3:42 AM [facility] ALKALINE PHOSPHATASE S/P/B 49 45 - 115 U/L 08/03/2022 3:42 AM [facility] AST 11(L) 15 - 37 U/L 08/03/2022 3:42 AM [facility] ALT 13(L) 16 - 61 U/L 08/03/2022 3:42 AM [facility] TOTAL PROTEIN S/P/B 5.4(L) 6.4 - 8.2 G/DL 08/03/2022 3:42 AM [facility] ALBUMIN S/P/B 1.9(L) 3.4 - 5.0 G/DL 08/03/2022 3:42 AM [employer] [facility] ANION GAP 5.6 5.0 - 15.0 MMOL/L 08/03/2022 3:42 AM [facility] OSMOLALITY (CALC) 282 MOSM/KG 022 3:42 AM [facility] Comment:REFERENCE RANGE NOT ESTABLISHED GFR ESTIMATE >90 >90 ML/MIN/1. 73 M2 08/03/2022 3:42 AM [facility] GFR NOTES GFR REFERENCE S: 08/03/2022 3:42 AM [facility] Comment: THE ESTIMATED GFR IS CALCULATED [...] FAILURE: <15 ml/min/1.73 m2 08/03/2022 2:22 AM [employer] Lanre Winter MD LABORATORY Final Result [facility] [address] [place] [id number], [id number] * (ABNORMAL) CBC W/DIFF AUTOMATED (08/03/2022 2:22 AM [employer]) WBC 11.0(H) 4.0 - 10.8 x10'3/uL 08/03/2022 3:09 AM [employer] [facility] RBC 2.84(L) 4.50 - 6.10 x10'6/uL 08/03/2022 3:09 AM [facility] HGB 9.2(L) 13.0 - 18.0 G/DL 08/03/2022 3:09 AM [facility] HCT 28.9(L) 37.0 - 52.0 % 08/03/2022 3:09 AM [facility] MCV 101.8(H) 78.0 - 100.0 FL 08/03/2022 3:09 AM [facility] MCH 32.4(H) 27.0 - 31.0 PG 08/03/2022 3:09 AM [facility] MCHC 31.8(L) 33.0 - 36.0 G/DL 08/03/2022 3:09 AM [facility] RDW 15.1(H) 11.5 - 14.5 % 08/03/2022 3:09 AM [facility] PLT 216 150 - 350 x10'3/uL 08/03/2022 3:09 AM [facility] MPV 10.8(H) 7.4 - 10.4 FL 08/03/2022 3:09 AM [facility] ABS. NEUTROPHILS 8.98(H) 1.60 - 8.30 x10'3/uL 08/03/2022 3:09 AM [facility] ABS. LYMPHOCYTES 0.81 0.80 - 4.70 x10'3/uL 08/03/2022 3:09 AM [facility] ABS. MONOCYTES 1.00 0.00 - 1.50 x10'3/uL 08/03/2022 3:09 AM [facility] ABS. EOSINOPHILS 0.12 0.00 - 0.40 x10'3/uL 08/03/2022 3:09 AM [facility] ABS. BASOPHILS 0.01 0.00 - 0.20 x10'3/uL 08/03/2022 3:09 AM [facility] ABS. IMMATURE GRANULOCYTES 0.08(H) 0.00 - 0.03 x10'3/uL 08/03/2022 3:09 AM [employer] [facility] ABS. NUCLEATED RBC'S 0.00 0.0 x10'3/uL 08/03/2022 3:09 AM [employer] [facility] 08/03/2022 2:22 AM [employer] Lanre Winter MD LABORATORY Final Result [facility] [address] [place] [address], [place] [phone] * XR CHEST PORTABLE (08/02/2022 9:58 AM [employer]) Anatomical Region Laterality Modality Chest Radiographic Jasmina ging 08/02/2022 10:5 5 AM [employer] Impressions 08/02/2022 10:57 AM [employer] IMPRESSION: 1. Unchanged bibasilar opacities. Ordered By: EDVIN POLLACK Interpreted By: Atilio Read MD, 08/02/2022 10:55 AM Narrative 08/02/2022 10:57 AM [employer] Examination: X-ray chest, 1 view Exam [...] * SMEAR,FLUOR STAIN,ACID FAST (08/02/2022 8:38 AM [employer] WORK[employer]) Pathologist [facility] ACID FAST SMEAR RESULT SEE NOTE 07:45 PM 08/05/2022 7:45 PM [employer] [facility] Comment: Test ?Result ??Flag ??Unit ??RefValue Acid Fast Smear For Mycobacterium SOURCE: LUNG, RIGHT, RT DECORTICATION TIS ACID FAST SMEAR FOR MYCOBACTERIUM ?FINAL Negative. Test Performed by: [place] [address] Enterer: Brent Alcaraz M.D. Ph.D.; CLIA# [id number] 08/02/2022 8:38 AM [employer] Ross Blackburn MD MICROBIOLOGY - GENERAL OR DERABLES Final Result [facility] [address] [place] [address] * CULTURE, TISSUE W/GRAM STAIN (08/02/2022 8:38 AM [employer]) SPEC DESCRIPTION TISSUE: RT DECORTICATION TISU 08/02/2022 8:43 AM [employer] [facility] SPECIAL REQUESTS NO SPECIAL REQUEST 08/02/2022 8:43 AM [facility] GRAM STAIN RESULT MODERATE NEUTROPHILS SEEN 08/02/2022 4:02 PM [facility] GRAM STAIN RESULT NO ORGANISMS SEEN 08/02/2022 4:02 PM [facility] CULTURE RESULT NO GROWTH 5 DAYS 01/2022 11:36 AM [facility] TISSUE TISSUE SPECIMEN / Unknown 08/02/2022 8:38 AM [employer] us Ross Blackburn MD MICROBIOLOGY - GENERAL OR DERABLES Final Result [facility] [address] [place] [address], [id number] * CULTURE, FUNGUS (08/02/2022 8:38 AM [employer]) SOURCE (BOATENG) TISSUE 08/02/2022 10:10 AM [employer] [facility] Comment:RT DECORTICATION TIS U CULTURE RESULT SEE NOTE 08/29/2022 01:03 AM 08/29/2022 1:03 AM [employer] [facility] Comment: Test ?Result ?Flag ??Unit ??RefValue Fungal Culture, Routine ? SOURCE: LUNG, RIGHT, TISSUE RT DECORTICATION TISU FUNGAL CULTURE, ROUTINE ?FINAL No growth after 24 days of incubation. Test Performed by: [facility] [place] [address] [place] [address] Enterer: Brent Alcaraz M.D. Ph.D.; IA# [id number] TISSUE (OTHER (type in comments)) 08/02/2022 8:38 AM [employer] us Ross Blackburn MD MICROBIOLOGY - GENERAL OR DERABLES Final Result [facility] [address] [place] [address] [facility] [address] [place] [address], [id number] * CULTURE TB/AFB OTHER (TYPE IN COMMENTS) (08/02/2022 8:38 AM [employer]) SOURCE (IVINS) TISSUE 08/02/2022 10:09 AM [employer] [facility] Comment:RT DECORTICATION TIS U CULTURE RESULT SEE NOTE 09/16/2022 01:03 AM 09/16/2022 1:03 AM [employer] [facility] Comment: Test ?Result ?Flag ??Unit ??RefValue Mycobacterial Culture ? SOURCE: LUNG, RIGHT, TISSUE RT DECORTICATION TISU MYCOBACTERIAL CULTURE ?FINAL No growth after 42 days of incubation. Test Performed by: [facility] [place] [address] [place] [address] Enterer: Brent Alcaraz M.D. Ph.D.; [facility]# [id number] TISSUE (OTHER (type in comments)) 08/02/2022 8:38 AM [employer] Ross Blackburn MD MICROBIOLOGY - GENERAL OR DERABLES Final Result Performing Organization Address [facility] de Phone Number [facility] [address] [place] [address] [facility] [address] [place] [address], [phone] * CULTURE, ANAEROBIC (08/02/2022 8:38 AM [employer]) SPEC DESCRIPTION TISSUE: RT DECORTICATION TISU 08/02/2022 8:43 AM [employer] [facility] SPECIAL REQUESTS NO SPECIAL REQUEST 08/02/2022 8:43 AM [employer] [facility] CULTURE RESULT NO ANAEROBES ISOLATED 08/07/2022 9:10 AM [employer] [facility] TISSUE TISSUE SPECIMEN / Unknown 08/02/2022 8:38 AM [employer] Ross Blackburn MD MICROBIOLOGY - GENERAL OR DERABLES Final Result Performing Organization Address [facility] de Phone Number [facility] [address] [place] [address], [phone] * Pathology (08/02/2022 7:03 AM JOUR[employer] SHE[employer] WORKER) PATHOLOGY [facility] ? Department of Laboratory Medicine ?[address] [facility] [address] ?[place] [address] ? , extension [phone] ? Pathology Report ? Surgical Pathology Report Name: RAY PHILLIPS ? Specimen #: [id number] Age: 9 1955 (Age: 67) ? Location: [facility] Sex: M ?Procedure Date: 08/02/2022 Hospital #: [id number] ?Date Received: 08/02/2022 Date Reported: 08/07/2022 Provider: ROSS BLACKBURN MD Source: Pleural peel, right Clinical History: Pleural effusion Gross Description: Received in formalin, labeled with a patient label and as right lung decortication tissue are multiple pieces and fragments of edematous pale [id number]-owvh-[id number] tissue. ??Some of the pieces exhibit some hemorrhagic areas. The pieces are 6 x 4 x 1.0 cm in aggregate. ??Hall Manager tissue is submitted in cassettes 1-4. Gross examination (when applicable), interpretation and sign-out were performed at [facility], [address] [place] [address], [id number]. FINAL DIAGNOSIS: PLEURAL PEEL, RIGHT: ? - CONSISTENT WITH ACUTE FIBRINOUS PLEURITIS. IC: CBG Electronically Signed Out ? GADIEL HANSON MD [facility] TISSUE (OTHER (type in comments)) 08/02/2022 7:03 AM [employer] Ross Blackburn MD PATHOLOGY/CYTOLOGY ORDERA BLES Final Result Performing Organization Address [facility] Co de Phone Number [facility] [address] [place] [address], [phone] * TYPE & SCREEN (08/01/2022 11:11 PM [employer]) ABO/RH B POSITIVE 08/02/2022 12:25 AM [employer] [facility] ANTIBODY SCREEN NEGATIVE 08/02/2022 12:25 AM [employer] [facility] SAMPLE EXPIRATION 08/04/2022,2 359 08/01/2022 11:27 PM [employer] [facility] 08/01/2022 11:1 1 PM [employer] Ross Blackburn MD BLOOD BANK TEST ORDERABLE S Final Result Performing Organization Address [facility] Co de Phone Number [facility] [address] [place] [address], [phone] * (ABNORMAL) BMP WITHOUT GLUCOSE (08/01/2022 11:31 AM [employer]) SODIUM S/P/B 138 136 - 145 MMOL/L 08/01/2022 12:12 PM [employer] [facility] POTASSIUM S/P/B 3.9 3.5 - 5.1 MMOL/L 08/01/2022 12:12 PM [employer] [facility] CHLORIDE S/P/B 107 98 - 107 MMOL/L 08/01/2022 12:12 PM [employer] [facility] CO2 24.1 21.0 - 32.0 MMOL/L 08/01/2022 12:12 PM [facility] BUN 16 7 - 18 MG/DL 08/01/2022 12:12 PM [facility] CREATININE S/P/B 0.70 0.70 - 1.30 MG/DL 08/01/2022 12:12 PM [facility] CALCIUM S/P/B 7.9(L) 8.5 - 10.1 MG/DL 08/01/2022 12:12 PM [facility] ANION GAP 6.9 5.0 - 15.0 MMOL/L 08/01/2022 12:12 PM [facility] GFR ESTIMATE >90 >90 ML/MIN/1. 73 M2 08/01/2022 12:12 PM [facility] GFR NOTES GFR REFERENCE S: 08/01/2022 12:12 PM [facility] Comment: THE ESTIMATED GFR IS CALCULATED [...] <15 ml/min/1.73 m2 08/01/2022 11:3 1 AM [employer] Florencio Amaya MD LABORATORY Final Result [facility] [address] [place] [address], [phone] * Vancomycin Random Level (08/01/2022 11:31 AM J[employer] WORKER) VANCOMYCIN RANDOM 18.7 MCG/ML 08/01/2022 12:30 PM [facility] 08/01/2022 11:3 1 AM [employer] Florencio Amaya MD LABORATORY Final Result [facility] [address] [place] [address], [phone] * (ABNORMAL) COMPREHENSIVE METABOLIC PANEL (08/01/2022 2:42 AM J[employer] SHE[employer] MET[employer] WORKER) Pathologist [facility] SODIUM S/P/B 140 136 - 145 MMOL/L 08/01/2022 4:00 AM [facility] POTASSIUM S/P/B 3.4(L) 3.5 - 5.1 MMOL/L 08/01/2022 4:00 AM [facility] CHLORIDE S/P/B 107 98 - 107 MMOL/L 08/01/2022 4:00 AM [facility] CO2 27.2 21.0 - 32.0 MMOL/L 08/01/2022 4:00 AM [facility] GLUCOSE 145(H) 74 - 106 MG/DL 08/01/2022 4:00 AM [facility] BUN 19(H) 7 - 18 MG/DL 08/01/2022 4:00 AM [facility] CREATININE S/P/B 0.77 0.70 - 1.30 MG/DL 08/01/2022 4:00 AM [facility] CALCIUM S/P/B 8.1(L) 8.5 - 10.1 MG/DL 08/01/2022 4:00 AM [facility] BILIRUBIN TOTAL S/P/B 0.4 0.2 - 1.0 MG/DL 08/01/2022 4:00 AM [facility] ALKALINE PHOSPHATASE S/P/B 50 45 - 115 U/L 08/01/2022 4:00 AM [facility] AST 8(L) 15 - 37 U/L 08/01/2022 4:00 AM [facility] ALT 14(L) 16 - 61 U/L 08/01/2022 4:00 AM [facility] TOTAL PROTEIN S/P/B 5.0(L) 6.4 - 8.2 G/DL 08/01/2022 4:00 AM [facility] ALBUMIN S/P/B 1.7(L) 3.4 - 5.0 G/DL 08/01/2022 4:00 AM [facility] ANION GAP 5.8 5.0 - 15.0 MMOL/L 08/01/2022 4:00 AM [facility] OSMOLALITY (CALC) 295 MOSM/KG 022 4:00 AM [facility] Comment:REFERENCE RANGE NOT ESTABLISHED GFR ESTIMATE >90 >90 ML/MIN/1. 73 M2 08/01/2022 4:00 AM [facility] GFR NOTES GFR REFERENCE S: 08/01/2022 4:00 AM [facility] Comment: THE ESTIMATED GFR IS CALCULATED [...] FAILURE: <15 ml/min/1.73 m2 08/01/2022 2:42 AM J[employer] us Lanre Winter MD LABORATORY Final Result [facility] [address] [place] [address], [phone] * (ABNORMAL) CBC W/DIFF AUTOMATED (08/01/2022 2:42 AM J[employer] SHE[employer] METAL WORKER) [facility] WBC 11.1(H) 4.0 - 10.8 x10'3/uL 08/01/2022 3:32 AM J[employer] SHE[employer] WORKER [facility] RBC 2.58(L) 4.50 - 6.10 x10'6/uL 08/01/2022 3:32 AM [facility] HGB 8.6(L) 13.0 - 18.0 G/DL 08/01/2022 3:32 AM [facility] HCT 26.4(L) 37.0 - 52.0 % 08/01/2022 3:32 AM [facility] MCV 102.3(H) 78.0 - 100.0 FL 08/01/2022 3:32 AM [facility] MCH 33.3(H) 27.0 - 31.0 PG 08/01/2022 3:32 AM [facility] MCHC 32.6(L) 33.0 - 36.0 G/DL 08/01/2022 3:32 AM [facility] RDW 15.4(H) 11.5 - 14.5 % 08/01/2022 3:32 AM J[employer] WORKER [facility] PLT 246 150 - 350 x10'3/uL 08/01/2022 3:32 AM [facility] MPV 10.4 7.4 - 10.4 FL 08/01/2022 3:32 AM [facility] ABS. NEUTROPHILS 8.96(H) 1.60 - 8.30 x10'3/uL 08/01/2022 3:32 AM [facility] ABS. LYMPHOCYTES 1.27 0.80 - 4.70 x10'3/uL 08/01/2022 3:32 AM [employer]ER [facility] ABS. MONOCYTES 0.60 0.00 - 1.50 x10'3/uL 08/01/2022 3:32 AM J[employer] SHE[employer] MET[employer] WORKER [facility] ABS. EOSINOPHILS 0.12 0.00 - 0.40 x10'3/uL 08/01/2022 3:32 AM J[employer] SHE[employer] MET[employer] WORKER [facility] ABS. BASOPHILS 0.01 0.00 - 0.20 x10'3/uL 08/01/2022 3:32 AM [facility] ABS. IMMATURE GRANULOCYTES 0.14(H) 0.00 - 0.03 x10'3/uL 08/01/2022 3:32 AM [facility] ABS. NUCLEATED RBC'S 0.00 0.0 x10'3/uL 08/01/2022 3:32 AM [facility] 08/01/2022 2:42 AM [employer] WORKER Lanre Winetr MD LABORATORY Final Result [facility] [address] [place] [address], [phone] * (ABNORMAL) COMPREHENSIVE METABOLIC PANEL (07/31/2022 11:13 AM J[employer] WORKER) SODIUM S/P/B 137 136 - 145 MMOL/L 07/31/2022 11:54 AM [facility] POTASSIUM S/P/B 3.6 3.5 - 5.1 MMOL/L 07/31/2022 11:54 AM [facility] CHLORIDE S/P/B 104 98 - 107 MMOL/L 07/31/2022 11:54 AM [facility] CO2 27.8 21.0 - 32.0 MMOL/L 07/31/2022 11:54 AM [facility] GLUCOSE 106 74 - 106 MG/DL 07/31/2022 11:54 AM [facility] BUN 20(H) 7 - 18 MG/DL 07/31/2022 11:54 AM [facility] CREATININE S/P/B 0.74 0.70 - 1.30 MG/DL 07/31/2022 11:54 AM [facility] CALCIUM S/P/B 8.1(L) 8.5 - 10.1 MG/DL 07/31/2022 11:54 AM [facility] BILIRUBIN TOTAL S/P/B 0.3 0.2 - 1.0 MG/DL 07/31/2022 11:54 AM [facility] ALKALINE PHOSPHATASE S/P/B 54 45 - 115 U/L 07/31/2022 11:54 AM [facility] AST 8(L) 15 - 37 U/L 07/31/2022 11:54 AM [facility] ALT 15(L) 16 - 61 U/L 07/31/2022 11:54 AM [facility] TOTAL PROTEIN S/P/B 5.6(L) 6.4 - 8.2 G/DL 07/31/2022 11:54 AM [facility] ALBUMIN S/P/B 1.9(L) 3.4 - 5.0 G/DL 07/31/2022 11:54 AM [facility] ANION GAP 5.2 5.0 - 15.0 MMOL/L 07/31/2022 11:54 AM [facility] OSMOLALITY (CALC) 287 MOSM/KG 022 11:54 AM [facility] Comment:REFERENCE RANGE NOT ESTABLISHED GFR ESTIMATE >90 >90 ML/MIN/1. 73 M2 07/31/2022 11:54 AM [facility] GFR NOTES GFR REFERENCE S: 07/31/2022 11:54 AM [facility] Comment: THE ESTIMATED GFR IS CALCULATED [...] <15 ml/min/1.73 m2 07/31/2022 11:1 3 AM [employer] us Lanre Winter MD LABORATORY Final Result [facility] [address] [place] [address], [id number] * CT CHEST WO CON (07/31/2022 10:22 AM [employer]) Anatomical Region Laterality Modality Chest Computed Tomogra phy 07/31/2022 1:56 PM [employer] Impressions 07/31/2022 2:07 PM [employer] IMPRESSION: 1. Focal loculated hydropneumothorax, right [...] 07/31/2022 1:56 PM Narrative 07/31/2022 2:07 PM [employer] EXAMINATION: CT Chest without contrast DATE: [...] (ABNORMAL) CBC W/DIFF AUTOMATED (07/31/2022 9:41 AM [employer]) WBC 16.2(H) 4.0 - 10.8 x10'3/uL 07/31/2022 9:55 AM [employer] [facility] RBC 3.07(L) 4.50 - 6.10 x10'6/uL 07/31/2022 9:55 AM [employer] [facility] HGB 10.1(L) 13.0 - 18.0 G/DL 07/31/2022 9:55 AM [employer] [facility] HCT 31.0(L) 37.0 - 52.0 % 07/31/2022 9:55 AM [employer] [facility] MCV 101.0(H) 78.0 - 100.0 FL 07/31/2022 9:55 AM [employer] [facility] MCH 32.9(H) 27.0 - 31.0 PG 07/31/2022 9:55 AM [employer] [facility] MCHC 32.6(L) 33.0 - 36.0 G/DL 07/31/2022 9:55 AM [employer] [facility] RDW 15.3(H) 11.5 - 14.5 % 07/31/2022 9:55 AM [facility] PLT 277 150 - 350 x10'3/uL 07/31/2022 9:55 AM [facility] MPV 10.4 7.4 - 10.4 FL 07/31/2022 9:55 AM [facility] SERVICES LAB ABS. NEUTROPHILS 14.00(H) 1.60 - 8.30 x10'3/uL 07/31/2022 9:55 AM [facility] ABS. LYMPHOCYTES 1.26 0.80 - 4.70 x10'3/uL 07/31/2022 9:55 AM [facility] ABS. MONOCYTES 0.59 0.00 - 1.50 x10'3/uL 07/31/2022 9:55 AM [facility] ABS. EOSINOPHILS 0.01 0.00 - 0.40 x10'3/uL 07/31/2022 9:55 AM [facility] ABS. BASOPHILS 0.02 0.00 - 0.20 x10'3/uL 07/31/2022 9:55 AM [facility] ABS. IMMATURE GRANULOCYTES 0.36(H) 0.00 - 0.03 x10'3/uL 07/31/2022 9:55 AM [facility] ABS. NUCLEATED RBC'S 0.03(H) 0.0 x10'3/uL 07/31/2022 9:55 AM [facility] 07/31/2022 9:41 AM [employer] Lanre Winter MD LABORATORY Final Result [facility] [address] [place] [address], [phone] * XR CHEST PORTABLE (07/31/2022 6:00 AM JOURNEYMAN SHE[employer] METAL WORKER) Anatomical Region Laterality Modality Chest Radiographic Jasmina ging 07/31/2022 9:13 AM [employer] METAL WORKER Impressions 07/31/2022 9:17 AM [employer]OUR[employer] SHE[employer] METAL WORKER IMPRESSION: 1. Right-sided chest remains in [...] 07/31/2022 9:13 AM Narrative 07/31/2022 9:17 AM JOUR[employer] SHEET METAL WORKER EXAM DESCRIPTION: Chest 1 view EXAM [...] midlung. Ordered By: RODNEY NOLASCO Interpreted By: Jni Saravia MD, 07/31/2022 9:13 AM us Rodney Nolasco MD GENERAL IMAGING Final Res ult * Bronchoscopy (07/30/2022 4:15 PM JOUR[employer] SHE[employer] METAL WORKER) Narrative Procedure Note Patti Pineda MD [...] CULTURE VIRAL RESPIRATORY RAPID (07/30/2022 3:30 PM JOURNEYMAN SHEET METAL WORKER) VIRAL RESP RAPID CULTURE W/RFX REPORT 08/05/2022 3:21 PM JOUR[employer] SHEET METAL WORKER [facility] Comment: Respiratory Culture Screen SOURCE : BWASH/BAL MIX IN RESULT ?Negative for Influenza virus, types A and B, Parainfluenza viruses 1,2 # 3, Adenovirus, and Respiratory Syncytial virus. Reference range: Negative Rapid Respiratory Viruses ? Not indicated Test Performed by [employer] [facility], [address] [place] [address] Adrián Balderas M.D., Ph.D., Director of Laboratories , CLIA [id number] SPECIMEN TYPE BWASH/BAL MIX IN VTM 1 TO 1 RATIO, FRZ NEG 70 07/31/2022 2:35 PM [employer] METAL WORKER [facility] 07/30/2022 3:30 PM J[employer] MET[employer] WORKER Patti Pineda MD MICROBIOLOGY - GENERAL ORDERABLES Final Result Performing Organization Address [facility] Co de Phone Number [facility] [address] [place] [address], [place] [phone] [employer] [address] , * CULTURE HERPES (07/30/2022 3:30 PM JOURNEYMAN SHEET METAL WORKER) HERPES SIMPLEX VIRUS CULTURE REPORT 08/03/2022 3:42 PM JOUR[employer]MAN SHEET METAL WORKER [employer] [facility] Comment: Herpes Simplex Virus Culture SOURCE : BAL/BWASH MIX IN RESULT ?Not Isolated ?Reference Range: Not Isolated Test Performed by [employer] [facility], [address] [place] [address] Adrián Balderas M.D., Ph.D., Director of Laboratories , CLIA [id number] SPECIMEN TYPE BAL/BWASH MIX IN ARM 1 TO 1 RATIO, FRZ NEG 70 07/31/2022 2:32 PM [employer] MET[employer] WORKER [facility] 07/30/2022 3:30 PM J[employer] METAL WORKER us Patti Pineda MD MICROBIOLOGY - GENERAL ORDERABLES Final Result Performing Organization Address [facility] Co de Phone Number [facility] [address] [place] [address], [phone] [employer] [address] , [place] [phone] * CULTURE CMV (07/30/2022 3:30 PM JOURNEYMAN SHEET METAL WORKER) [facility] CYTOMEGALOVIRUS CULTURE REPORT 08/06/2022 5:37 PM JOUR[employer]MAN SHEET METAL WORKER [employer] [facility] Comment: CMV Rapid Culture SOURCE : BAL RESULT ?Not Isolated ? Reference Range: Not Isolated Test Performed by Javier Ben[employer]tez [employer] [facility], [address] [place] [address] Adrián Balderas M.D., Ph.D., Director of Laboratories , [facility] [id number] SPECIMEN SOURCE BAL/BWASH MIX IN VTM 1 TO 1 RATIO, FRZ NEG 70 07/31/2022 2:31 PM J[employer] SHE[employer] METAL WORKER [facility] 07/30/2022 3:30 PM J[employer] SHE[employer] METAL WORKER Howierosa maria Pineda MD MICROBIOLOGY - GENERAL ORDERABLES Final Result [facility] [address] [place] [address], [phone] [employer] [address] , [place] [phone] * CULTURE, QUANTITATIVE W/ GRAM STAIN (07/30/2022 3:30 PM JOURNEYMAN SHEET METAL WORKER) [facility] SPEC DESCRIPTION SITE: BAL RLL 07/30/2022 5:04 PM JOUR[employer] METAL WORKER [facility] SPECIAL REQUESTS NO SPECIAL REQUEST 07/30/2022 5:04 PM J[employer] WORKER [facility] GRAM STAIN RESULT <10 NEUTROPHILS PER LPF 07/31/2022 4:41 AM [facility] GRAM STAIN RESULT <10 EPITHELIAL CELLS PER LPF 07/31/2022 4:41 AM [employer] WORKER [facility] GRAM STAIN RESULT RARE GRAM NEGATIVE RODS 07/31/2022 4:41 AM [facility] CULTURE RESULT 500 CFU/ML YEAST , ID UPON REQUEST 08/02/2022 2:57 PM JOUR[employer] SHE[employer] METAL WORKER [facility] SPECIMEN FROM UNSPECIFIED BODY SITE / Unknown 07/30/2022 3:30 PM [employer] METAL WORKER 07/30/2022 5:03 PM [employer] Comment:BAL RLL Florencio Amaya MD MICROBIOLOGY - GENERAL ORDERABLE S Final Result [facility] [address] [place] [address], [phone] * CULTURE TB/AFB OTHER (07/30/2022 3:30 PM JOURNEYMAN SHEET METAL WORKER) SOURCE (IVINS) SITE 07/30/2022 5:03 PM JOUR[employer] MET[employer] WORKER [facility] Comment:BRONCH WASH CULTURE RESULT SEE NOTE 3 01:04 AM 09/13/2022 1:04 AM JOUR[employer] SHEET METAL WORKER [facility] Comment: Test ?Result ?Flag ??Unit ??RefValue Mycobacterial Culture ? SOURCE: BRONCHIAL WASHING, SITE BRONCH WASH MYCOBACTERIAL CULTURE ?FINAL No growth after 42 days of incubation. Test Performed by: [place] [address] Enterer: Brent Alcaraz M.D. Ph.D.; CLIA# [id number] 07/30/2022 3:30 PM J[employer] SHE[employer] METAL WORKER Florencio Amaya MD MICROBIOLOGY - GENERAL ORDERABLE S Final Result Performing Organization Address [facility] Co de Phone Number [address] [address] [facility] [address] [place] [address], [place] [phone] * SMEAR,FLUOR STAIN,ACID FAST (07/30/2022 3:30 PM JOURNEY[employer] SHE[employer] METAL WORKER) ACID FAST SMEAR RESULT SEE NOTE 11:18 PM 08/01/2022 11:18 PM JOURNEYMAN SHEET METAL WORKER [facility] Comment: Test ?Result ??Flag ??Unit ??RefValue Acid Fast Smear For Mycobacterium SOURCE: BRONCHIAL WASHING, BWASH/BAL MIX ACID FAST SMEAR FOR MYCOBACTERIUM ?FINAL Negative. Test Performed by: [address] [address] Enterer: Brent Alcaraz M.D. Ph.D.; CLIA# [id number] 07/30/2022 3:30 PM JOURNEYMAN SHEET METAL WORKER us Florencio Amaya MD MICROBIOLOGY - GENERAL ORDERABLE S Final Result Performing Organization Address [facility]/ZIP Co de Phone Number [address] [address] * CULTURE RESPIRATORY W/ GRAM STAIN (07/30/2022 3:30 PM JOURNEYMAN SHEET METAL WORKER) SPEC DESCRIPTION SITE: BRONCH WASH 07/30/2022 5:01 PM JOUR[employer] SHEET METAL WORKER [facility] SPECIAL REQUESTS NO SPECIAL REQUEST 07/30/2022 5:01 PM JOUR[employer]AL WORKER [facility] GRAM STAIN RESULT MANY NEUTROPHILS SEEN 07/30/2022 8:16 PM JOUR[employer] MET[employer] WORKER [facility] GRAM STAIN RESULT NO ORGANISMS SEEN 07/30/2022 8:16 PM JOUR[employer] METAL WORKER [facility] CULTURE RESULT FEW TETE ALBICANS 08/03/2022 12:28 PM JOUR[employer] SHEET METAL WORKER [facility] SPECIMEN FROM UNSPECIFIED BODY SITE / Unknown 07/30/2022 3:30 PM J[employer] METAL WORKER 07/30/2022 5:00 PM J[employer] SHE[employer] METAL WORKER Comment:BRONCH WASH Florencio Amaya MD MICROBIOLOGY - GENERAL ORDERABLE S Final Result [facility] [address] [place] [address], [phone] * (ABNORMAL) CULTURE, FUNGUS (07/30/2022 3:30 PM JOURNEYMAN SHEET METAL WORKER) Pathologist [facility] SOURCE (IVINS) SITE 07/30/2022 5:01 PM JOURNEYMAN SHEET METAL WORKER [facility] Comment:BRONCH WASH CULTURE RESULT SEE NOTE 08:01 AM(A) 08/28/2022 8:01 AM JOUR[employer] SHEET METAL WORKER [facility] Comment: Test ?Result ?Flag ??Unit ??RefValue Fungal Culture, Routine ?A ? SOURCE: BRONCHIAL WASHING, SITE BRONCH WASH FUNGAL CULTURE, ROUTINE ?FINAL TETE ALBICANS ? Many NAKASEOMYCES (TETE) GLABRATA ??Few Test Performed by: [place] [address] Enterer: Brent Alcaraz M.D. Ph.D.; CLIA# [id number] 07/30/2022 3:30 PM JOURNEYMAN SHEET METAL WORKER Florencio Amaya MD MICROBIOLOGY - GENERAL ORDERABLE S Final Result Performing Organization Address [facility] de Phone Number [facility] [address] [place] [address] [facility] [address] [place] [address], [place] [phone] * Bronchoscopy (07/30/2022 2:41 PM JOURNEYMAN SHEET METAL WORKER) Patti Pineda MD PROCEDURE/MINOR SURGIC AL ORDERABLES Final Result * Vancomycin Random Level (07/30/2022 6:17 AM JOURNEYMAN SHEET METAL WORKER) VANCOMYCIN RANDOM 24.4 MCG/ML 07/30/2022 7:34 AM JOURNEYMAN SHEET METAL WORKER [facility] Comment:REFERENCE RANGE NOT ESTABLISHED 07/30/2022 6:17 AM JOUR[employer]MAN SHEET METAL WORKER us Florencio Amaya MD LABORATORY Final Result Performing Organization Address [facility] Co de Phone Number [facility] [address] [place] [address], [place] [phone] * XR CHEST PORTABLE (07/30/2022 5:27 AM JOURNEYMAN SHEET METAL WORKER) Anatomical Region Laterality Modality Chest Radiographic Jasmina ging 07/30/2022 8:33 AM JOUR[employer] SHEET METAL WORKER Impressions 07/30/2022 8:37 AM J[employer] SHE[employer] METAL WORKER IMPRESSION: 1) Interval decrease in small left pleural effusion and left basilar consolidation. No other significant change. Ordered By: RODNEY NOLASCO Interpreted By: Nigel Peña MD, 07/30/2022 8:33 AM Narrative 07/30/2022 8:37 AM JOUR[employer] SHEET METAL WORKER Examination: XR CHEST PORTABLE Exam time: [...] ult * CYTOLOGY GENERIC (07/30/2022 12:00 AM JOURNEYMAN SHEET METAL WORKER) CYTOLOGY OTHER [facility] ? Department of Laboratory Medicine ?[address] ?[place] [address] ? , extension [phone] ? Pathology Report ? Non-gynecologic Cytology Report Name: RAY PHILLIPS ? Specimen #: [id number] Age: 9 1955 (Age: 67) ? Location: [facility] Sex: M ?Procedure Date: 07/30/2022 Hospital #: [id number] ?Date Received: 07/31/2022 Date Reported: 08/01/2022 Provider: [...] case was interpreted and signed out at [facility], [address] [place] [address], [place], [place], [facility]. FINAL DIAGNOSIS: LUNG, RIGHT LOWER LOBE, BRONCHOALVEOLAR [...] Electronically Signed Out ? GADIEL HANSON MD [facility] 07/30/2022 07/31/2022 12:13 PM J[employer] SHE[employer] METAL WORKER Comment:LUNG, RIGHT LOWER LO BE, BRONCHOALVEOLAR [place] us Anna Us MD PATHOLOGY/CYTOLOGY ORDERABL ES Final Result [facility] [address] [place] [address], [place] [address], [place] [phone] * CYTOLOGY GENERIC (07/30/2022 12:00 AM JOURNEYMAN SHEET METAL WORKER) CYTOLOGY OTHER [facility] ? Department of Laboratory Medicine ?[address] [facility] ?[place] [address] ? , extension [phone] ? Pathology Report ? Non-gynecologic Cytology Report Name: RAY PHILLIPS E ? Specimen #: [id number] Age: 9 1955 (Age: 67) ? Location: [facility] Sex: M ?Procedure Date: 07/30/2022 Hospital #: [id number] ?Date Received: 07/31/2022 Date Reported: 08/01/2022 Provider: [...] case was interpreted and signed out at [facility], [address] [place] [address], [place], [place], [facility]. FINAL DIAGNOSIS: LUNG, GENERAL AIRWAYS, BRONCHIAL WASHING: ? - SATISFACTORY FOR EVALUATION. ? - NEGATIVE FOR MALIGNANT CELLS. ? - ACUTE INFLAMMATION AND SCATTERED EPITHELIAL CELLS. ? - GMS STAIN DEMONSTRATES RARE FUNGAL HYPHAE OF UNCERTAIN SIGNIFICANCE. Electronically Signed Out ? GADIEL HANSON MD [facility] 07/30/2022 07/31/2022 12: 18 PM J[employer] SHE[employer] MET[employer] WORKER Comment:LUNG, GENERAL AIRWAY S, BRONCHIAL WASHING us Anna Us MD PATHOLOGY/CYTOLOGY ORDERABL ES Final Result [facility] [address] [place] [address], [phone] * (ABNORMAL) CULTURE, FUNGUS (07/28/2022 2:25 PM JOURNEYMAN SHEET METAL WORKER) SOURCE (IVINS) SPUTUM 07/31/2022 1:36 PM JOURNEYMAN SHEET METAL WORKER [facility] CULTURE RESULT SEE NOTE 08/28/2022 08:14 AM(A) 08/28/2022 8:14 AM JOUR[employer] SHEET METAL WORKER [facility] Comment: Test ?Result ?Flag ??Unit ??RefValue Fungal Culture, Routine ?A ? SOURCE: SPUTUM Fungal specimen plated for culture, volume inadequate for optimal recovery. FUNGAL CULTURE, ROUTINE ?FINAL TETE ALBICANS ??Many Test Performed by: [place] [address] Enterer: Brent Alcaraz M.D. Ph.D.; CLIA# [id number] SPUTUM / Unknown 07/28/2022 2:25 PM JOUR[employer]MAN SHEET METAL WORKER Tracy Yo MD MICROBIOLOGY - GENERA L ORDERABLES Edited Result - Final [facility] [address] [place] [address] [facility] [address] [place] [address], [phone] * CULTURE RESPIRATORY W/ GRAM STAIN (07/28/2022 2:25 PM JOURNEYMAN SHEET METAL WORKER) SPEC DESCRIPTION SPUTUM, EXPECTORATED 07/28/2022 2:25 PM JOURNEYMAN SHEET METAL WORKER [facility] SPECIAL REQUESTS NO SPECIAL REQUEST 07/28/2022 2:25 PM JOUR[employer]MAN SHEET METAL WORKER [facility] GRAM STAIN RESULT >25 NEUTROPHILS PER LPF 07/28/2022 10:41 PM JOURNEYMAN SHEET METAL WORKER [facility] GRAM STAIN RESULT <10 EPITHELIAL CELLS PER LPF 07/28/2022 10:41 PM JOUR[employer]MAN SHEET METAL WORKER [facility] GRAM STAIN RESULT RARE BUDDING YEAST CELLS 07/28/2022 10:41 PM JOUR[employer]MAN SHEET METAL WORKER [facility] GRAM STAIN RESULT RARE GRAM POSITIVE COCCI IN PAIRS 07/28/2022 10:41 PM JOUR[employer]MAN SHEET METAL WORKER [facility] GRAM STAIN RESULT RARE GRAM NEGATIVE RODS 07/28/2022 10:41 PM JOUR[employer]MAN SHEET METAL WORKER [facility] CULTURE RESULT FEW ALPHA STREPTOCOCCUS 07/29/2022 2:57 PM JOUR[employer]MAN SHEET METAL WORKER [facility] CULTURE RESULT MODERATE PRESUMPTIVE TETE ALBICANS 07/29/2022 2:57 PM JOUR[employer]MAN SHEET METAL WORKER [facility] SPUTUM SPECIMEN / Unknown 07/28/2022 2:25 PM JOUR[employer]MAN SHEET METAL WORKER 07/28/2022 3:24 PM JOUR[employer]MAN SHEET METAL WORKER Tracy Yo MD MICROBIOLOGY - GENERA L ORDERABLES Final Result [facility] [address] [place] [address], [phone] * [place] ABD LIMITED (07/28/2022 11:39 AM JOURNEYMAN SHEET METAL WORKER) Anatomical Region Laterality Modality Abdomen Ultrasound 07/29/2022 6:03 AM JOURNEYMAN SHEET METAL WORKER Impressions 07/29/2022 6:06 AM JOURNEYMAN SHEET METAL WORKER IMPRESSION: 1. ??3 cysts in the spleen with the largest 2.1 cm. ??The smallest of the 3 cyst demonstrates thin internal septation but appears benign. ??No follow-up imaging is recommended. 2. ??Splenomegaly. Referred By: PROVIDER NON-STAFF Interpreted By: Karine Sher MD, 07/29/2022 6:03 AM Narrative 07/29/2022 6:06 AM JOURNEYMAN SHEET METAL WORKER EXAM: Ultrasound abdomen limited spleen. Multiple [...] (ABNORMAL) CBC W/DIFF AUTOMATED (07/28/2022 7:03 AM JOURNEYMAN SHEET METAL WORKER) [facility] WBC 13.5(H) 4.0 - 10.8 x10'3/uL 07/28/2022 7:39 AM [facility] RBC 2.51(L) 4.50 - 6.10 x10'6/uL 07/28/2022 7:39 AM [facility] HGB 8.3(L) 13.0 - 18.0 G/DL 07/28/2022 7:39 AM [facility] HCT 25.1(L) 37.0 - 52.0 % 07/28/2022 7:39 AM [facility] MCV 100.0 78.0 - 100.0 FL 07/28/2022 7:39 AM [facility] MCH 33.1(H) 27.0 - 31.0 PG 07/28/2022 7:39 AM [facility] MCHC 33.1 33.0 - 36.0 G/DL 07/28/2022 7:39 AM [facility] RDW 14.7(H) 11.5 - 14.5 % 07/28/2022 7:39 AM [facility] PLT 303 150 - 350 x10'3/uL 07/28/2022 7:39 AM [facility] MPV 10.1 7.4 - 10.4 FL 07/28/2022 7:39 AM [facility] ABS. NEUTROPHILS 11.61(H) 1.60 - 8.30 x10'3/uL 07/28/2022 8:06 AM [facility] ABS. NEUTROPHILS CALCULATED 11.07(H) 1.60 - 7.30 x10'3/uL 07/28/2022 8:06 AM [facility] BANDS 0.27 0.00 - 1.00 x10'3/uL 07/28/2022 8:06 AM [facility] ABS. LYMPHOCYTES 1.08 0.80 - 4.70 x10'3/uL 07/28/2022 8:06 AM [facility] ABS. MONOCYTES 0.81 0.00 - 1.50 x10'3/uL 07/28/2022 8:06 AM [facility] ABS. EOSINOPHILS 0.00 0.00 - 0.40 x10'3/uL 07/28/2022 8:06 AM [facility] ABS. BASOPHILS 0.00 0.00 - 0.20 x10'3/uL 07/28/2022 8:06 AM [facility] ABS. METAMYELOCYTES 0.27(H) 0.00 x10'3/uL 07/28/2022 8:06 AM [facility] ABS. NUCLEATED RBC'S 0.00 0.0 x10'3/uL 07/28/2022 8:06 AM [facility] RBC MORPHOLOGY POLYCHROMASIA 022 8:06 AM [facility] Comment:SLIGHT PLT MORPH. NORMAL 07/28/2022 8:06 AM [facility] 07/28/2022 7:03 AM [facility] Florencio Amaya MD LABORATORY Final Result [facility] [address] [place] [phone], [phone] * (ABNORMAL) BASIC METABOLIC PANEL (07/28/2022 7:03 AM JOURNEYMAN SHEET METAL WORKER) SODIUM S/P/B 137 136 - 145 MMOL/L 07/28/2022 7:50 AM [facility] POTASSIUM S/P/B 4.0 3.5 - 5.1 MMOL/L 07/28/2022 7:50 AM [facility] CHLORIDE S/P/B 105 98 - 107 MMOL/L 07/28/2022 7:50 AM [facility] CO2 28.7 21.0 - 32.0 MMOL/L 07/28/2022 7:50 AM [facility] GLUCOSE 98 74 - 106 MG/DL 07/28/2022 7:50 AM [facility] BUN 19(H) 7 - 18 MG/DL 07/28/2022 7:50 AM [facility] CREATININE S/P/B 0.73 0.70 - 1.30 MG/DL 07/28/2022 7:50 AM [facility] CALCIUM S/P/B 7.9(L) 8.5 - 10.1 MG/DL 07/28/2022 7:50 AM [facility] ANION GAP 3.3(L) 5.0 - 15.0 MMOL/L 07/28/2022 7:50 AM [facility] OSMOLALITY (CALC) 286 MOSM/KG 022 7:50 AM [facility] Comment:REFERENCE RANGE NOT ESTABLISHED GFR ESTIMATE >90 >90 ML/MIN/1. 73 M2 07/28/2022 7:50 AM [facility] GFR NOTES GFR REFERENCE S: 07/28/2022 7:50 AM [facility] Comment: THE ESTIMATED GFR IS CALCULATED [...] FAILURE: <15 ml/min/1.73 m2 07/28/2022 7:03 AM J[employer] SHE[employer] WORKER Florencio Amaya MD LABORATORY Final Result Performing Organization Address City/[facility]/ZIP Co de Phone Number [facility] [address] [place] [address], [place] [phone] * Vancomycin Random Level (07/28/2022 7:03 AM JOURNEYMAN SHEET METAL WORKER) VANCOMYCIN RANDOM 7.0 MCG/ML 07/28/2022 7:52 AM JOURNEYMAN SHEET METAL WORKER [facility] Comment:REFERENCE RANGE NOT ESTABLISHED 07/28/2022 7:03 AM JOURNEYMAN SHEET METAL WORKER Tracy Yo MD LABORATORY Final Result Performing Organization Address [facility] Co de Phone Number [facility] [address] [place] [address], [place] [phone] * XR CHEST PORTABLE (07/28/2022 12:43 AM JOURNEYMAN SHEET METAL WORKER) Anatomical Region Laterality Modality Chest Radiographic Jasmina ging 07/28/2022 1:18 AM JOURNEYMAN SHEET METAL WORKER Impressions 07/28/2022 1:26 AM JOURNEYMAN SHEET METAL WORKER IMPRESSION: 1. ??Right basilar pigtail catheter [...] 07/28/2022 1:18 AM Narrative 07/28/2022 1:26 AM JOURNEYMAN SHEET METAL WORKER EXAMINATION: XR CHEST PORTABLE HISTORY:chest tube [...] * XR CHEST PORTABLE (07/27/2022 4:22 PM JOURNEYMAN SHEET METAL WORKER) Anatomical Region Laterality Modality Chest Radiographic Jasmina ging 07/27/2022 4:42 PM JOURNEYMAN SHEET METAL WORKER Impressions 07/27/2022 4:44 PM JOURNEYMAN SHEET METAL WORKER IMPRESSION: 1. Right-sided pigtail chest tube. 2. Bilateral pulmonary opacities. 3. Cardiomegaly. Pulmonary vascular congestion. Ordered By: RODNEY NOLASCO Interpreted By: Can Klein DO, 07/27/2022 4:42 PM Narrative 07/27/2022 4:44 PM JOURNEYMAN SHEET METAL WORKER EXAMINATION: XR CHEST PORTABLE HISTORY: Chest [...] ult * USE ECHOCARDIOGRAM (07/27/2022 1:13 PM JOURNEYMAN SHEET METAL WORKER) Anatomical Region Laterality Modality Cardiac Echocardiogram 07/27/2022 12:4 4 PM JOURNEYMAN SHEET METAL WORKER Narrative 07/28/2022 6:32 AM JOURNEYMAN SHEET METAL WORKER ?Echocardiography Report Pat.Name: ??RAY PHILLIPS ? Pat.ID: ?[id number] ? St.Date: ?? 07/27/2022 ? Refer.MD: ??[id number] NON-STAFF PROVIDER ?EWDPROV ?EWDPROV Exam Time: 12:44:00 PM ? Study Type:ECHO WITH CARDIAC DOPPLER COMP Height: ?165 cm ?Weight: ?68 kg ? BSA: ? 1.75 m2 ?Age: ??1955,67Y ? Sex: ? M ? BP: ?138/68 ? HR: ?70 bpm ?Sonogrphr: Avery Marie RDCS ? Pat. Stat.:Inpatient ? Room: ?742 ? CPT - 4: ?77176 ? Reason for Study:Pericardial effusion Procedures: 2D, [...] ?? Value ?229 g ? LV Mass [id number] ?? Value ?131 g/m2 ? Right Ventricle [...] Echocardiography Report Pat.Name: RAY PHILLIPS Noelle Pat.ID: [id number] .Date: 07/27/2022 Refer.: [id number] NON-STAFF PROVIDER EWDPRORichard EWDPROV Exam Time: 12:44:00 PM Study Type:ECHO WITH CARDIAC DOPPLER COMP Height: 165 cm Weight: 68 kg BSA: 1.75 m2 Age: 9 1955,67Y Sex: M BP: 138/68 HR: 70 bpm Sonogrphr: Avery Marie [facility] Pat. Stat.:Inpatient Room: 742 CPT - 4: 67113 Reason for Study:Pericardial effusion Procedures: 2D, M-mode, [...] Mass 2D Value 229 g LV Mass Ryzai2C Value 131 g/m2 Right Ventricle Right Ventricle [...] MIDLINE PLACEMENT GREATER 3YR (07/27/2022 11:20 AM JOURNEYMAN SHEET METAL WORKER) Anatomical Region Laterality Modality Chest Interventional R adiology 07/27/2022 11:1 5 AM JOURNEYMAN SHEET METAL WORKER Impressions 07/27/2022 11:23 AM JOURNEYMAN SHEET METAL WORKER Impression: Successful image guided left basilic vein inserted midline line venous catheter. Plan: 1. ??Left midline venous catheter okay for immediate use. 2. ??IR follow-up as needed. Thank you for allowing [facility] to assist in this patient's care! Ordered By: TRACY YO Interpreted By: Reji Cantrell MD, 07/27/2022 11:15 AM Narrative 07/27/2022 11:23 AM JOURNEYMAN SHEET METAL WORKER IR MIDLINE VENOUS CATHETER PLACEMENT Pre op diagnosis: . IV access required. Midline requested. Post Op Diagnosis: same Procedure: Midline venous catheter placement. Grafts/Implants: 4 Bahamian midline venous catheter Interventional Radiologist: Óscar Community Affairs Manager: ANSON Keating tech Anesthesia: Local - [...] centrally. Peel-away sheath was placed. A 4 Bahamian single lumen midline, 20 cm. This was [...] Procedure: Midline venous catheter placement. Grafts/Implants: 4 Bahamian midline venous catheter Interventional Radiologist: Óscar Community Affairs Manager: ANSON Keating tech Anesthesia: Local - [...] advancedcentrally. Peel-away sheath was placed. A 4 Bahamian single lumen midline,20 cm. This was advanced [...] CHEST TUBE INSERT RT (07/27/2022 10:57 AM JOURNEYMAN SHEET MET[employer] WORKER) Anatomical Region Laterality Modality Chest Computed Tomogra phy 07/27/2022 12:0 5 PM JOURNEYMAN SHEET MET[employer] WORKER Impressions 07/27/2022 12:13 PM JOURNEYMAN SHEET MET[employer] WORKER IMPRESSION: Successful CT-guided right thoracostomy tube placement as described. The stopcock will initially be left in the closed position for fibrinolytic 4 hour dwell time. The tube will then be placed to low wall suction. Output and serial radiographs will be monitored to determine further management. Ordered By: FLORENCIO AMAYA Interpreted By: Raul Osuna MD, 07/27/2022 12:05 PM Narrative 07/27/2022 12:13 PM JOURNEYMAN SHEET METAL WORKER PROCEDURE: CT-guided right thoracostomy tube placement Indication: Necrotizing pneumonia with loculated hydropneumothorax Physicians: Raul Osuna M.D. (attending); Rodney Nolasco M.D. (resident) Following informed consent, including discussion of procedural risks, the patient was place in the left lateral decubitus position on the CT table and [place] protocol was observed to verify correct patient, [...] CT. The tract was dilated to 12 Bahamian. During dilation, there was temporary retraction of the wire resulting in slight kinking and difficulty advancing the tube. Access was again regained using the one-step sheath needle, followed again by CT confirmation of position, wire placement, and tract dilation. A 12-Bahamian pigtail drainage catheter with the locking stitch [...] lateral decubitus position on the CT tableand [place] protocol was observed to verify correct patient, [...] by CT. The tractwas dilated to 12 Bahamian. During dilation, there was temporary retractionof the wire resulting in slight kinking and difficulty advancing the tube.Access was again regained using the one-step sheath needle, followed againby CT confirmation of position, wire placement, and tract dilation. V05-Zcreyl pigtail drainage catheter with the locking stitch [...] Result * CULTURE, ANAEROBIC (07/27/2022 10:30 AM JOURNEYMAN SHEET METAL WORKER) SPEC DESCRIPTION SITE: RT PLEURAL FLUID 07/27/2022 12:59 PM JOURNEYMAN SHEET METAL WORKER [facility] SPECIAL REQUESTS NO SPECIAL REQUEST 07/27/2022 12:59 PM JOURNEYMAN SHEET METAL WORKER [facility] CULTURE RESULT FEW MICROAEROPHILIC STREPTOCOCCUS 07/30/2022 5:41 PM JOURNEYMAN SHEET METAL WORKER [facility] SPECIMEN FROM UNSPECIFIED BODY SITE / Unknown 07/27/2022 10:30 AM JOURNEYMAN SHEET METAL WORKER 07/27/2022 12:08 PM JOURNEYMAN SHEET METAL WORKER Comment:RT PLEURAL FLUID Narrative Organism Antibiotic Method Susceptibility Microaerophilic streptococcus CEFOTAXIME ARLEN (ETEST) 0.023: Sensitive Microaerophilic streptococcus PENICILLIN G ARLEN (ETEST) 0.008: Sensitive Florencio Amaya MD MICROBIOLOGY - GENERAL ORDERABLE S Final Result Performing Organization Address City/State/[facility] Co de Phone Number [facility] [address] [place] [address], [phone] * CULTURE, BODY FLUID W/ GRAM STAIN (07/27/2022 10:30 AM JOURNEYMAN SHEET METAL WORKER) SPEC DESCRIPTION PLEURAL FLUID: RT 07/27/2022 12:09 PM JOURNEYMAN SHEET METAL WORKER [facility] SPECIAL REQUESTS NO SPECIAL REQUEST 07/27/2022 12:09 PM JOURNEYMAN SHEET METAL WORKER [facility] GRAM STAIN RESULT MANY NEUTROPHILS SEEN 07/27/2022 4:31 PM JOURNEYMAN SHEET METAL WORKER [facility] GRAM STAIN RESULT NO ORGANISMS SEEN 07/27/2022 4:31 PM JOURNEYMAN SHEET METAL WORKER [facility] CULTURE RESULT RARE STAPHYLOCOCCUS EPIDERMIDIS 07/31/2022 7:51 AM JOURNEYMAN SHEET METAL WORKER [facility] PLEURAL FLUID SPECIMEN / Unknown 07/27/2022 10:30 AM JOURNEYMAN SHEET METAL WORKER 07/27/2022 12:08 PM JOURNEYMAN SHEET METAL WORKER Comment:RT Narrative Organism Antibiotic Method Susceptibility [...] ORDERABLE S Final Result Performing Organization Address [facility] Co de Phone Number [facility] [address] [place] [address], [id number] * PROTEIN TOTAL FLUID (07/27/2022 10:30 AM JOURNEYMAN SHEET METAL WORKER) PROTEIN (FLUID) 3.5 G/DL 3:22 PM JOURNEYMAN SHEET METAL WORKER [facility] Comment:REFERENCE RANGE NOT ESTABLISHED FOR THIS BODY FLUID. SOURCE (FLUID) PLEURAL FLUID 07/27/2022 10:53 AM JOURNEYMAN SHEET METAL WORKER [facility] PLEURAL FLUID SPECIMEN / Unknown 07/27/2022 10:30 AM JOURNEYMAN SHEET METAL WORKER Tracy Yo MD BODY FLUIDS AND STOOL S ORDERABLES Final Result Performing Organization Address [facility] de Phone Number [facility] [address] [place] [address], [id number] * CELL COUNT W/ DIFF BODY FLUID (07/27/2022 10:30 AM JOURNEYMAN SHEET METAL WORKER) SOURCE (FLUID) PLEURAL FLUID 022 3:08 PM JOURNEYMAN SHEET METAL WORKER [facility] WBC (FLUID) 144.450 x10'3/uL 07/27/2022 3:08 PM JOURNEYMAN SHEET METAL WORKER [facility] Comment:REFERENCE RANGE NOT ESTABLISHED RBC (FLUID) 0.090 x10'6/uL 07/27/2022 3:08 PM JOURNEYMAN SHEET METAL WORKER [facility] Comment:REFERENCE RANGE NOT ESTABLISHED DIFFERENTIAL MANUAL DIFFERENTIAL PERFORMED ON CONCENTRATED CYTOSPIN 07/27/2022 10:53 AM JOURNEYMAN SHEET METAL WORKER [facility] CELLS COUNTED 100 No COUNTED 07/27/2022 3:45 PM JOURNEYMAN SHEET METAL WORKER [facility] SEGS (FLUID) 97 % 07/27/2022 3:45 PM JOURNEYMAN SHEET METAL WORKER [facility] LYMPHS (FLUID) 3 % 07/27/2022 3:45 PM JOURNEYMAN SHEET METAL WORKER [facility] PLEURAL FLUID SPECIMEN / Unknown 07/27/2022 10:30 AM JOURNEYMAN SHEET METAL WORKER us Tracy Yo MD BODY FLUIDS AND STOOL S ORDERABLES Final Result Performing Organization Address [facility] Co de Phone Number [facility] [address] [place] [address], [place] [phone] * LDH BODY FLUID (07/27/2022 10:30 AM JOURNEYMAN SHEET METAL WORKER) LDH (FLUID) >4,000 UNITS/L 07/27/2022 3:22 PM JOURNEYMAN SHEET METAL WORKER [facility] Comment:REFERENCE RANGE NOT ESTABLISHED FOR THIS BODY FLUID. SOURCE (FLUID) PLEURAL FLUID 07/27/2022 10:53 AM JOURNEYMAN SHEET METAL WORKER [facility] PLEURAL FLUID SPECIMEN / Unknown 07/27/2022 10:30 AM JOURNEYMAN SHEET METAL WORKER us Tracy Yo MD BODY FLUIDS AND STOOL S ORDERABLES Final Result Performing Organization Address [facility] Co de Phone Number [facility] [address] [place] [address], [place] [phone] * TRANSFUSE RED BLOOD CELLS (07/27/2022 7:04 AM JOURNEYMAN SHEET METAL WORKER) us Florencio Amaya MD NURSING TREATMENT ORDERABLES - B LOOD ADMIN Final Result * TRANSFUSE RED BLOOD CELLS, 1 Units (07/27/2022 7:04 AM JOURNEYMAN SHEET METAL WORKER) us Florencio Amaya MD NURSING TREATMENT ORDERABLES - B LOOD ADMIN Final Result * (ABNORMAL) BMP WITHOUT GLUCOSE (07/27/2022 2:40 AM JOURNEYMAN SHEET METAL WORKER) SODIUM S/P/B 138 136 - 145 MMOL/L 07/27/2022 3:30 AM [facility] POTASSIUM S/P/B 3.7 3.5 - 5.1 MMOL/L 07/27/2022 3:30 AM [facility] CHLORIDE S/P/B 106 98 - 107 MMOL/L 07/27/2022 3:30 AM [facility] CO2 26.0 21.0 - 32.0 MMOL/L 07/27/2022 3:30 AM [facility] BUN 22(H) 7 - 18 MG/DL 07/27/2022 3:30 AM [facility] CREATININE S/P/B 0.91 0.70 - 1.30 MG/DL 07/27/2022 3:30 AM [facility] CALCIUM S/P/B 8.2(L) 8.5 - 10.1 MG/DL 07/27/2022 3:30 AM [facility] ANION GAP 6.0 5.0 - 15.0 MMOL/L 07/27/2022 3:30 AM [facility] GFR ESTIMATE >90 >90 ML/MIN/1. 73 M2 07/27/2022 3:30 AM [facility] GFR NOTES GFR REFERENCE S: 07/27/2022 3:30 AM [facility] Comment: THE ESTIMATED GFR IS CALCULATED [...] FAILURE: <15 ml/min/1.73 m2 07/27/2022 2:40 AM JOURNEYMAN SHEET METAL WORKER Florencio Amaya MD LABORATORY Final Result [facility] [address] [place] [address], [place] [phone] * (ABNORMAL) CBC W/DIFF AUTOMATED (07/27/2022 2:40 AM JOURNEYMAN SHEET METAL WORKER) WBC 21.3(H) 4.0 - 10.8 x10'3/uL 07/27/2022 3:07 AM [facility] RBC 1.98(L) 4.50 - 6.10 x10'6/uL 07/27/2022 3:07 AM [facility] HGB 6.5(LL) 13.0 - 18.0 G/DL 07/27/2022 3:07 AM [facility] Comment: CRITICAL RESULT, SPECIMEN DATE, TIME WERE READ BACK BY ALANNAH LINCOLN @0307 07.27.22 BY JOSÉ MIGUEL HCT 20.2(L) 37.0 - 52.0 % 07/27/2022 3:07 AM [facility] MCV 102.0(H) 78.0 - 100.0 FL 07/27/2022 3:07 AM [facility] MCH 32.8(H) 27.0 - 31.0 PG 07/27/2022 3:07 AM [facility] MCHC 32.2(L) 33.0 - 36.0 G/DL 07/27/2022 3:07 AM [facility] RDW 14.2 11.5 - 14.5 % 07/27/2022 3:07 AM [facility] PLT 347 150 - 350 x10'3/uL 07/27/2022 3:07 AM [facility] MPV 10.4 7.4 - 10.4 FL 07/27/2022 3:07 AM JOURNEYMAN SHEET METAL WORKER [facility] ABS. NEUTROPHILS 20.24(H) 1.60 - 8.30 x10'3/uL 07/27/2022 3:25 AM JOURNEYMAN SHEET METAL WORKER [facility] ABS. NEUTROPHILS CALCULATED 19.17(H) 1.60 - 7.30 x10'3/uL 07/27/2022 3:25 AM [facility] ABS. LYMPHOCYTES 0.85 0.80 - 4.70 x10'3/uL 07/27/2022 3:25 AM [facility] ABS. MONOCYTES 0.21 0.00 - 1.50 x10'3/uL 07/27/2022 3:25 AM [facility] ABS. EOSINOPHILS 0.00 0.00 - 0.40 x10'3/uL 07/27/2022 3:25 AM [facility] ABS. BASOPHILS 0.00 0.00 - 0.20 x10'3/uL 07/27/2022 3:25 AM [facility] ABS. METAMYELOCYTES 0.64(H) 0.00 x10'3/uL 07/27/2022 3:25 AM [facility] ABS. MYELOCYTES 0.21(H) 0.00 x10'3/uL 07/27/2022 3:25 AM [facility] ABS. PROMYELOCYTES 0.21(H) 0.00 x10'3/uL 07/27/2022 3:25 AM [facility] ABS. NUCLEATED RBC'S 0.00 0.0 x10'3/uL 07/27/2022 3:25 AM [facility] RBC MORPHOLOGY POLYCHROMASIA 022 3:25 AM [facility] Comment: SLIGHT ANISOCYTOSIS SLIGHT MACROCYTOSIS SLIGHT PLT MORPH. NORMAL 07/27/2022 3:25 AM [facility] 07/27/2022 2:40 AM JOURNEYMAN SHEET METAL WORKER us Florencio A Beatrice MD LABORATORY Final Result Performing Organization Address City/[facility]/ZIP Co de Phone Number [facility] [address] [place] [address], [phone] * (ABNORMAL) PROCALCITONIN (PCT) (07/26/2022 12:55 PM JOURNEYMAN SHEET METAL WORKER) Procalcitonin 1.83(H) <0.50 NG/ML 07/27/2022 9:06 AM JOURNEYMAN SHEET METAL WORKER [facility] 07/26/2022 12:5 5 PM JOURNEYMAN SHEET METAL WORKER Patel Kelsey MD LABORATORY Final Result Performing Organization Address [facility] Co de Phone Number [facility] [address] [place] [address], [phone] * BLASTOMYCES AB PANEL, (CF, ID) (07/26/2022 12:55 PM JOURNEYMAN SHEET METAL WORKER) BLASTOMYCES AB FIXATION <1:8 <1:8 08/02/2022 5:09 PM JOURNEYMAN SHEET METAL WORKER [facility] Comment: Interpretive Criteria: ? <1:8 [...] analytical performance characteristics have been determined by [employer] [place] [employer] [place]. It has not been cleared or approved by the U.S. Food and Drug Administration. This assay has been validated pursuant to the CLIA regulations and is used for clinical purposes. BLASTO IMMUNODIFFUSION Negative Negative 08/02/2022 5:09 PM JOURNEYMAN SHEET METAL WORKER [facility] Comment: ?Interpretive Criteria: ?? Negative: Antibody not detected ?? Positive: Antibody detected A positive result is diagnostic of active or recent blastomycosis and is found in approximately 80% of proven cases of blastomycosis. Test Performed by [facility], [employer] [place], [address] [place] [address] Adrián Balderas M.D., Ph.D., Director of Laboratories , CLIA [id number] 07/26/2022 12:5 5 PM JOURNEYMAN SHEET METAL WORKER us Sergio Raza MD LABORATORY Final Result [facility] [place] [id number] [place], [place] , * HISTOPLASMA ANTIBODY PANEL (CF,IM) (07/26/2022 12:55 PM JOURNEYMAN SHEET METAL WORKER) HISTOPLASMA YEAST AB <1:8 <1:8 08/02/2022 5:09 PM JOURNEYMAN SHEET METAL WORKER [facility] HISTOPLASMA MYCELIAL AB <1:8 <1:8 08/02/2022 5:09 PM JOURNEYMAN SHEET METAL WORKER [facility] Comment: Interpretive Criteria: ? <1:8 - Antibody [...] analytical performance characteristics have been determined by [employer] [place]. It has not been cleared or approved by the FDA. This assay has been validated pursuant to the CLIA regulations and is used for clinical purposes. HISTOPLASMA CAPSULATUM H AB Negative Negative 08/02/2022 5:09 PM JOURNEYMAN SHEET METAL WORKER [facility] Comment: This immunodiffusion assay is [...] the diagnosis of histoplasmosis. Test Performed by [facility], [employer] [facility], [address] [place] [address] Adrián Balderas M.D., Ph.D., Director of Laboratories , CLIA [id number] HISTOPLASMA CAPSULATUM M AB Negative Negative 08/02/2022 5:09 PM JOURNEYMAN SHEET METAL WORKER [facility] 07/26/2022 12:5 5 PM JOURNEYMAN SHEET METAL WORKER Sergio Raza MD LABORATORY Final Result [facility] [address] , * (ABNORMAL) HEMOGLOBIN AND HEMATOCRIT (07/26/2022 12:55 PM JOURNEYMAN SHEET METAL WORKER) HGB 7.1(L) 13.0 - 18.0 G/DL 07/26/2022 1:14 PM JOURNEYMAN SHEET METAL WORKER [facility] HCT 21.5(L) 37.0 - 52.0 % 07/26/2022 1:14 PM JOURNEYMAN SHEET METAL WORKER [facility] 07/26/2022 12:5 5 PM JOURNEYMAN SHEET METAL WORKER Tracy Yo MD LABORATORY Final Result [facility] [address] [place] [address], [place] [phone] * BLOOD SMEAR INTERPRETATION BY (07/26/2022 9:04 AM JOURNEYMAN SHEET METAL WORKER) CBC PATHOLOGIST COMMENT DUPLICATE. SAME TEST ORDERED BY DIFFERENT DOCTORS. 07/26/2022 11:20 AM JOURNEYMAN SHEET METAL WORKER [facility] Comment: CORRECTED ON 07/26 AT 1120: Previously reported as SENT TO PATHOLOGIST FOR REVIEW 07/26/2022 9:04 AM JOURNEYMAN SHEET METAL WORKER us Florencio Amaya MD LABORATORY Edited Result - Final Performing Organization Address [facility]/ZIP Co de Phone Number [facility] [address] [place] [address], [id number] * (ABNORMAL) HAPTOGLOBIN, QUANT (07/26/2022 9:04 AM JOURNEYMAN SHEET METAL WORKER) HAPTOGLOBIN 412.0(H) 30.0 - 200.0 MG/DL 07/26/2022 9:55 AM JOURNEYMAN SHEET METAL WORKER [facility] 07/26/2022 9:04 AM JOURNEYMAN SHEET METAL WORKER us Florencio Amaya MD LABORATORY Final Result Performing Organization Address [facility]/ZIP Co de Phone Number [facility] [address] [place] [address], [phone] * XR CHEST PORTABLE (07/26/2022 6:55 AM JOURNEYMAN SHEET METAL WORKER) Anatomical Region Laterality Modality Chest Radiographic Jasmina ging 07/26/2022 7:27 AM JOURNEYMAN SHEET METAL WORKER Impressions 07/26/2022 7:29 AM JOURNEYMAN SHEET METAL WORKER IMPRESSION: Loculated effusion on the right. ??Bilateral pulmonary opacifications due to atelectasis or infiltrate greatest in the right lower lung and throughout the left lung. Left effusion. Referred By: PROVIDER NON-STAFF Interpreted By: Rudy Montaño MD, 07/26/2022 7:27 AM Narrative 07/26/2022 7:29 AM JOURNEYMAN SHEET METAL WORKER Procedure(s): XR CHEST PORTABLE Date of [...] * (ABNORMAL) C-REACTIVE PROTEIN (07/26/2022 2:38 AM JOURNEYMAN SHEET METAL WORKER) C-REACTIVE PROTEIN 12.30(H) <0.80 mg/dL 07/26/2022 3:37 AM JOURNEYMAN SHEET METAL WORKER [facility] 07/26/2022 2:38 AM JOURNEYMAN SHEET METAL WORKER us Tracy Yo MD LABORATORY Final Result Performing Organization Address [facility] Co de Phone Number [facility] [address] [place] [address], [phone] * (ABNORMAL) SED RATE, ERYTHROCYTE (ESR,WSR) (07/26/2022 2:38 AM JOURNEYMAN SHEET METAL WORKER) ESR 45(H) 0 - 15 MM/HR 07/26/2022 3:27 AM JOURNEYMAN SHEET METAL WORKER [facility] 07/26/2022 2:38 AM JOURNEYMAN SHEET METAL WORKER us Tracy Yo MD LABORATORY Final Result Performing Organization Address [facility] de Phone Number [facility] [address] [place] [address], [id number] * (ABNORMAL) ARTERIAL BLOOD GAS (07/26/2022 2:38 AM JOURNEYMAN SHEET METAL WORKER) PH ARTERIAL 7.43 7.35 - 7.45 07/26/2022 3:01 AM [facility] PCO2 37.3 35.0 - 45.0 MMHG 07/26/2022 3:01 AM [facility] PO2 71.8(L) 83.0 - 108.0 MMHG 07/26/2022 3:01 AM JOURNEYMAN SHEET METAL WORKER [facility] BICARB ARTERIAL 24.1 22 - 26 MMOL/L 07/26/2022 3:01 AM [facility] TCO2 25.3 23 - 27 MMOL/L 07/26/2022 3:01 AM [facility] BE/BASE EXCESS 0.4 0 - 2 MMOL/L 07/26/2022 3:01 AM [facility] O2 Saturation 93(L) 95 - 98 % 07/26/2022 3:01 AM [facility] 07/26/2022 2:38 AM JOURNEYMAN SHEET METAL WORKER Ann Hammond NP LABORATORY Final Result [facility] [address] [place] [address], [phone] * (ABNORMAL) CBC W/DIFF AUTOMATED (07/26/2022 2:38 AM JOURNEYMAN SHEET METAL WORKER) WBC 17.5(H) 4.0 - 10.8 x10'3/uL 07/26/2022 3:40 AM [facility] RBC 2.26(L) 4.50 - 6.10 x10'6/uL 07/26/2022 3:40 AM [facility] HGB 7.6(L) 13.0 - 18.0 G/DL 07/26/2022 3:40 AM JOURNEYMAN SHEET METAL WORKER [facility] HCT 22.9(L) 37.0 - 52.0 % 07/26/2022 3:40 AM [facility] MCV 101.3(H) 78.0 - 100.0 FL 07/26/2022 3:40 AM [facility] MCH 33.6(H) 27.0 - 31.0 PG 07/26/2022 3:40 AM [facility] MCHC 33.2 33.0 - 36.0 G/DL 07/26/2022 3:40 AM [facility] RDW 13.8 11.5 - 14.5 % 07/26/2022 3:40 AM [facility] PLT 283 150 - 350 x10'3/uL 07/26/2022 3:40 AM [facility] MPV 10.6(H) 7.4 - 10.4 FL 07/26/2022 3:40 AM [facility] ABS. NEUTROPHILS 16.80(H) 1.60 - 8.30 x10'3/uL 07/26/2022 4:48 AM JOURNEYMAN SHEET METAL WORKER [facility] ABS. NEUTROPHILS CALCULATED 16.45(H) 1.60 - 7.30 x10'3/uL 07/26/2022 4:48 AM [facility] BANDS 0.18 0.00 - 1.00 x10'3/uL 07/26/2022 4:48 AM [facility] ABS. LYMPHOCYTES 0.53(L) 0.80 - 4.70 x10'3/uL 07/26/2022 4:48 AM JOURNEYMAN SHEET METAL WORKER [facility] ABS. MONOCYTES 0.18 0.00 - 1.50 x10'3/uL 07/26/2022 4:48 AM [facility] ABS. EOSINOPHILS 0.00 0.00 - 0.40 x10'3/uL 07/26/2022 4:48 AM [facility] ABS. BASOPHILS 0.00 0.00 - 0.20 x10'3/uL 07/26/2022 4:48 AM [facility] ABS. MYELOCYTES 0.18(H) 0.00 x10'3/uL 07/26/2022 4:48 AM [facility] ABS. NUCLEATED RBC'S 0.18(H) 0.0 x10'3/uL 07/26/2022 4:48 AM [facility] RBC MORPHOLOGY POLYCHROMASIA 022 4:48 AM [facility] Comment: SLIGHT POIKILOCYTOSIS SLIGHT WBC MORPHOLOGY HYPERSEGMENTATION 4:48 AM [facility] Comment: TOXIC GRANULATION VACUOLATED NEUTROPHILS PLT MORPH. NORMAL 07/26/2022 4:48 AM [facility] 07/26/2022 2:38 AM JOURNEYMAN SHEET METAL WORKER Ann Hammond NP LABORATORY Final Result [facility] [address] [place] [address], [place] [phone] * (ABNORMAL) LDH, LACTATE DEHYDROGENASE (07/26/2022 2:38 AM JOURNEYMAN SHEET METAL WORKER) LDH 265(H) 87 - 241 UNITS/L 07/26/2022 3:37 AM JOURNEYMAN SHEET METAL WORKER [facility] Comment:RESULT QUESTIONABLE DUE TO HEMOLYSIS, RECOMMEND RECOLLECTION. 07/26/2022 2:38 AM JOURNEYMAN SHEET METAL WORKER Tracy Yo MD LABORATORY Final Result Performing Organization Address [facility] de Phone Number [facility] [address] [place] [address], [place] [phone] * (ABNORMAL) COMPREHENSIVE METABOLIC PANEL (07/26/2022 2:38 AM JOURNEYMAN SHEET METAL WORKER) Pathologist [facility] SODIUM S/P/B 135(L) 136 - 145 MMOL/L 07/26/2022 3:37 AM [facility] POTASSIUM S/P/B 4.5 3.5 - 5.1 MMOL/L 07/26/2022 3:37 AM [facility] Comment:SLIGHT HEMOLYSIS, RE SULT MAY BE AFFECTED. CHLORIDE S/P/B 105 98 - 107 MMOL/L 07/26/2022 3:37 AM [facility] CO2 26.8 21.0 - 32.0 MMOL/L 07/26/2022 3:37 AM [facility] GLUCOSE 137(H) 74 - 106 MG/DL 07/26/2022 3:37 AM [facility] BUN 15 7 - 18 MG/DL 07/26/2022 3:37 AM [facility] CREATININE S/P/B 0.66(L) 0.70 - 1.30 MG/DL 07/26/2022 3:37 AM [facility] CALCIUM S/P/B 8.1(L) 8.5 - 10.1 MG/DL 07/26/2022 3:37 AM [facility] BILIRUBIN TOTAL S/P/B 0.2 0.2 - 1.0 MG/DL 07/26/2022 3:37 AM [facility] ALKALINE PHOSPHATASE S/P/B 60 45 - 115 U/L 07/26/2022 3:37 AM [facility] AST 19 15 - 37 U/L 07/26/2022 3:37 AM [facility] ALT 20 16 - 61 U/L 07/26/2022 3:37 AM [facility] TOTAL PROTEIN S/P/B 5.3(L) 6.4 - 8.2 G/DL 07/26/2022 3:37 AM [facility] ALBUMIN S/P/B 1.5(L) 3.4 - 5.0 G/DL 07/26/2022 3:37 AM [facility] ANION GAP 3.2(L) 5.0 - 15.0 MMOL/L 07/26/2022 3:37 AM [facility] OSMOLALITY (CALC) 283 MOSM/KG 022 3:37 AM [facility] Comment:REFERENCE RANGE NOT ESTABLISHED GFR ESTIMATE >90 >90 ML/MIN/1. 73 M2 07/26/2022 3:37 AM [facility] GFR NOTES GFR REFERENCE S: 07/26/2022 3:37 AM [facility] Comment: THE ESTIMATED GFR IS CALCULATED [...] FAILURE: <15 ml/min/1.73 m2 07/26/2022 2:38 AM [employer] Tracy Yo MD LABORATORY Final Result Performing Organization Address City/State/[facility] Co de Phone Number [facility] [address] [place] [address], [phone] * CTA CHEST+ABD+PEL (07/26/2022 12:32 AM [employer]) Anatomical Region Laterality Modality Chest, Abdomen, Pelvis Computed Tomography 07/26/2022 12:5 6 AM [employer] Impressions 07/26/2022 1:23 AM [employer] IMPRESSION: 1. ??Air-fluid level within loculated [...] 07/26/2022 12:56 AM Narrative 07/26/2022 1:23 AM [employer] EXAMINATION: 1. ??CTA Chest with Intravenous [...] (ABNORMAL) RETICULOCYTE CT, AUTO (07/25/2022 8:56 PM [employer]) Pathologist [facility] % RETICULOCYTE COUNT 4.0(H) 0.7 - 2.3 % 07/25/2022 9:04 PM [employer] [facility] ABSOLUTE RETICULOCYTE 0.09 0.03 - 0.11 x10'6/uL 07/25/2022 9:04 PM [employer] [facility] IMMATURE RETIC FRACTION 31.8(H) 2.3 - 13.4 % 07/25/2022 9:04 PM [employer] [facility] RETIC HGB 31.9 28.0 - 35.0 PG 07/25/2022 9:04 PM [employer] [facility] 07/25/2022 8:56 PM [employer] us Tracy Yo MD LABORATORY Final Result Performing Organization Address [facility] de Phone Number [facility] [address] [place] [address], [phone] * (ABNORMAL) HEMOGLOBIN AND HEMATOCRIT (07/25/2022 8:56 PM [employer]) [facility] HGB 7.5(L) 13.0 - 18.0 G/DL 07/25/2022 9:04 PM [employer] WORKER [facility] HCT 23.2(L) 37.0 - 52.0 % 07/25/2022 9:04 PM JOURNEYMAN SHEET METAL WORKER [facility] 07/25/2022 8:56 PM JOURNEYMAN SHEET METAL WORKER us Tracy Yo MD LABORATORY Final Result Performing Organization Address [facility] Co de Phone Number [facility] [address] [place] [address], [phone] * STREP PNEUMO AG URINE (07/25/2022 8:31 PM JOURNEYMAN SHEET METAL WORKER) [facility] S. PNEUMONIAE URINARY AG NEGATIVE NEGATIVE 07/26/2022 2:26 PM JOURNEYMAN SHEET METAL WORKER [facility] Comment: PRESUMPTIVE NEGATIVE FOR PNEUMOCOCCAL PNEUMONIA, SUGGESTING NO CURRENT OR RECENT PNEUMOCOCCAL INFECTION. INFECTION DUE TO STREPTOCOCCUS PNEUMONIA CANNOT BE RULED OUT SINCE THE ANTIGEN PRESENT IN THE SAMPLE MAY BELOW THE DETECTION LIMIT OF THE TEST. SPECIMEN TYPE URINE VOIDED 8:31 PM JOURNEYMAN SHEET METAL WORKER [facility] URINE SPECIMEN FROM URETHRA / Unknown 07/25/2022 8:31 PM JOURNEYMAN SHEET METAL WORKER Tracy Yo MD MICROBIOLOGY - [employer] L ORDERABLES Final Result Performing Organization Address [facility] de Phone Number [facility] [address] [place] [address], [phone] * LEGIONELLA AG URINE (07/25/2022 8:31 PM JOURNEYMAN SHEET METAL WORKER) LEGIONELLA ANTIGEN (URINE) NEGATIVE NEGATIVE 07/26/2022 2:26 PM JOURNEYMAN SHEET METAL WORKER [facility] Comment: PRESUMPTIVE NEGATIVE FOR L. PNEUMOPHILA [...] URINE SPECIMEN / Unknown 07/25/2022 8:31 PM JOURNEYMAN SHEET METAL WORKER Tracy Yo MD MICROBIOLOGY - [employer] L ORDERABLES Final Result Performing Organization Address [facility] Co de Phone Number [facility] [address] [place] [address], [place] [phone] * BLOOD SMEAR INTERPRETATION BY (07/25/2022 5:23 PM JOURNEYMAN SHEET METAL WORKER) CBC PATHOLOGIST COMMENT SENT TO PATHOLOGIST FOR REVIEW 07/25/2022 5:32 PM JOURNEYMAN SHEET METAL WORKER [facility] 07/25/2022 5:23 PM JOURNEYMAN SHEET METAL WORKER us Tracy Yo MD LABORATORY Final Result Performing Organization Address [facility] Co de Phone Number [facility] [address] [place] [address], [place] [phone] * (ABNORMAL) LDH, LACTATE DEHYDROGENASE (07/25/2022 5:23 PM JOURNEYMAN SHEET METAL WORKER) LDH 280(H) 87 - 241 UNITS/L 07/25/2022 5:59 PM JOURNEYMAN SHEET METAL WORKER [facility] 07/25/2022 5:23 PM JOURNEYMAN SHEET METAL WORKER us Tracy Yo MD LABORATORY Final Result Performing Organization Address [facility] de Phone Number [facility] [address] [place] [address], [phone] * (ABNORMAL) HEMOGLOBIN AND HEMATOCRIT (07/25/2022 5:23 PM JOURNEYMAN SHEET METAL WORKER) HGB 8.1(L) 13.0 - 18.0 G/DL 07/25/2022 5:31 PM JOURNEYMAN SHEET METAL WORKER [facility] HCT 24.4(L) 37.0 - 52.0 % 07/25/2022 5:31 PM JOURNEYMAN SHEET METAL WORKER [facility] 07/25/2022 5:23 PM JOURNEYMAN SHEET METAL WORKER us Tracy Yo MD LABORATORY Final Result Performing Organization Address [facility] Co de Phone Number [facility] [address] [place] [address], [place] [phone] * HIV 1 ANTIGEN(S), WITH HIV-1 AND HIV-2 ANTIBODIES (07/25/2022 5:23 PM JOURNEYMAN SHEET METAL WORKER) HIV 1/2 AB+ HIV1 P24 AG NON-REACTI VE NON-REACTI VE 07/25/2022 6:53 PM JOURNEYMAN SHEET METAL WORKER [facility] Comment:HIV 1 p24 Ag and HIV 1/ HIV 2 Ab not detected. 07/25/2022 5:23 PM JOURNEYMAN SHEET METAL WORKER Tracy Yo MD LABORATORY Final Result [facility] [address] [place] [address], [id number] * MYCOPLASMA PNEUMONIAE AB (07/25/2022 5:23 PM JOURNEYMAN SHEET METAL WORKER) M. PNEUMONIAE AB IGG <=0.90 <=0.90 07/30/2022 2:29 PM JOURNEYMAN SHEET METAL WORKER [employer] Comment: Reference Range: ?<=0.90 ? Negative ? 0.91-1.09 ? Equivocal ?>=1.10 ? Positive A positive IgG result indicates that the patient has antibody to Mycoplasma. It does not differentiate between an active or past infection. The clinical diagnosis must be interpreted in conjunction with the clinical signs and symptoms of the patient. M. PNEUMONIAE AB IGM 463 <770 U/mL 07/30/2022 2:29 PM JOURNEYMAN SHEET METAL WORKER [employer] SAAVEDRA Comment: Reference Range: ?? <770 U/ml [...] symptoms of the patient. Test Performed by [facility], [employer] [facility], [address] [place], [place] Adrián Balderas M.D., Ph.D., Director of Laboratories , [facility] [id number] 07/25/2022 5:23 PM JOURNEYMAN SHEET METAL WORKER Tracy Yo MD LABORATORY Final Result Performing Organization Address City/[facility]/ZIP Co de Phone Number [employer] [facility] [address] [place], [place] , [place] [phone] * (ABNORMAL) PROTIME/INR, VENOUS (PROTHROMBIN TIME) (07/25/2022 5:23 PM JOURNEYMAN SHEET METAL WORKER) PROTIME 14.6(H) 9.4 - 12.5 SEC 07/25/2022 5:56 PM JOURNEYMAN SHEET METAL WORKER [facility] INR 1.3(H) 0.8 - 1.1 07/25/2022 5:56 PM JOURNEYMAN SHEET METAL WORKER [facility] 07/25/2022 5:23 PM JOURNEYMAN SHEET METAL WORKER Tracy Yo MD LABORATORY Final Result Performing Organization Address City/[facility]/ZIP Co de Phone Number [facility] [address] [place] [address], [place] [phone] * TYPE & SCREEN (07/25/2022 5:23 PM JOURNEYMAN SHEET METAL WORKER) UNITS ORDERED 1 07/25/2022 5:33 PM JOURNEYMAN SHEET METAL WORKER [facility] ABO/RH B POSITIVE 07/25/2022 6:36 PM JOURNEYMAN SHEET METAL WORKER [facility] ANTIBODY SCREEN NEGATIVE 6:36 PM JOURNEYMAN SHEET METAL WORKER [facility] SAMPLE EXPIRATION 07/28/2022,2359 07/25/2022 5:33 PM [facility] BLOOD UNIT NUMBER [id number] 07/27/2022 4:27 AM JOURNEYMAN SHEET METAL WORKER [facility] PRODUCT: PC LEUKOPOOR 07/27/2022 4:27 AM JOURNEYMAN SHEET METAL WORKER [facility] UNIT DIVISION 00 07/27/2022 4:27 AM JOURNEYMAN SHEET METAL WORKER [facility] BLOOD UNIT STATUS TRANSFUSED,FINAL 07/28/2022 2:57 AM [facility] ISSUE DATE/TIME [id number] 022 2:57 AM [facility] PRODUCT CODE [id number] 07/28/2022 2:57 AM JOURNEYMAN SHEET METAL WORKER [facility] ABO/RH Unit B POS 07/28/2022 2:57 AM [facility] ABO/RH UNIT ISBT CODE 7300 07/28/2022 2:57 AM [facility] BLOOD UNIT EXPIRATION DATE [id number] 07/28/2022 2:57 AM [facility] TRANSFUSION STATUS OK TO TRANSFUSE 07/27/2022 4:27 AM [facility] CROSSMATCH COMPATIBLE-EXM 07/27/2022 4:27 AM [facility] 07/25/2022 5:23 PM JOURNEYMAN SHEET METAL WORKER Tracy Yo MD BLOOD BANK TEST ORDER CHRISTIANA Final Result [facility] [address] [place] [address], [id number] * CULTURE, BACTERIA, BLOOD (07/25/2022 2:17 PM JOURNEYMAN SHEET METAL WORKER) SPEC DESCRIPTION BLOOD 07/25/2022 1:55 PM JOURNEYMAN SHEET METAL WORKER [facility] SPECIAL REQUESTS NO SPECIAL REQUEST 07/25/2022 1:55 PM JOURNEYMAN SHEET METAL WORKER [facility] CULTURE RESULT NO GROWTH 5 DAYS 07/30/2022 5:25 AM [facility] BLOOD SPECIMEN OBTAINED FOR BLOOD CULTURE / Unknown 07/25/2022 2:17 PM JOURNEYMAN SHEET METAL WORKER 07/25/2022 2:32 PM JOURNEYMAN SHEET METAL WORKER Tracy Yo MD MICROBIOLOGY - GENERA L ORDERABLES Final Result [facility] [address] [place] [address], [id number] * (ABNORMAL) COMPREHENSIVE METABOLIC PANEL (07/25/2022 2:16 PM JOURNEYMAN SHEET METAL WORKER) SODIUM S/P/B 137 136 - 145 MMOL/L 07/25/2022 3:00 PM [facility] POTASSIUM S/P/B 3.4(L) 3.5 - 5.1 MMOL/L 07/25/2022 3:00 PM [facility] CHLORIDE S/P/B 106 98 - 107 MMOL/L 07/25/2022 3:00 PM [facility] CO2 24.7 21.0 - 32.0 MMOL/L 07/25/2022 3:00 PM [facility] GLUCOSE 85 74 - 106 MG/DL 07/25/2022 3:00 PM [facility] BUN 17 7 - 18 MG/DL 07/25/2022 3:00 PM [facility] CREATININE S/P/B 0.57(L) 0.70 - 1.30 MG/DL 07/25/2022 3:00 PM [facility] CALCIUM S/P/B 7.8(L) 8.5 - 10.1 MG/DL 07/25/2022 3:00 PM [facility] BILIRUBIN TOTAL S/P/B 0.3 0.2 - 1.0 MG/DL 07/25/2022 3:00 PM [facility] ALKALINE PHOSPHATASE S/P/B 61 45 - 115 U/L 07/25/2022 3:00 PM JOURNEYMAN SHEET METAL WORKER [facility] AST 23 15 - 37 U/L 07/25/2022 3:00 PM [facility] ALT 23 16 - 61 U/L 07/25/2022 3:00 PM [facility] TOTAL PROTEIN S/P/B 5.3(L) 6.4 - 8.2 G/DL 07/25/2022 3:00 PM [facility] ALBUMIN S/P/B 1.5(L) 3.4 - 5.0 G/DL 07/25/2022 3:00 PM [facility] ANION GAP 6.3 5.0 - 15.0 MMOL/L 07/25/2022 3:00 PM [facility] OSMOLALITY (CALC) 285 MOSM/KG 022 3:00 PM [facility] Comment:REFERENCE RANGE NOT ESTABLISHED GFR ESTIMATE >90 >90 ML/MIN/1. 73 M2 07/25/2022 3:00 PM [facility] GFR NOTES GFR REFERENCE S: 07/25/2022 3:00 PM [facility] Comment: THE ESTIMATED GFR IS CALCULATED [...] FAILURE: <15 ml/min/1.73 m2 07/25/2022 2:16 PM JOURNEYMAN SHEET METAL WORKER Tracy Yo MD LABORATORY Final Result [facility] [address] [place] [id number], [id number] * (ABNORMAL) CBC W/DIFF AUTOMATED (07/25/2022 2:16 PM JOURNEYMAN SHEET METAL WORKER) [facility] WBC 17.6(H) 4.0 - 10.8 x10'3/uL 07/25/2022 2:26 PM JOURNEYMAN SHEET METAL WORKER [facility] RBC 2.07(L) 4.50 - 6.10 x10'6/uL 07/25/2022 2:26 PM JOURNEYMAN SHEET METAL WORKER [facility] HGB 7.0(L) 13.0 - 18.0 G/DL 07/25/2022 2:26 PM [facility] HCT 21.0(L) 37.0 - 52.0 % 07/25/2022 2:26 PM [facility] MCV 101.4(H) 78.0 - 100.0 FL 07/25/2022 2:26 PM JOURNEYMAN SHEET METAL WORKER [facility] MCH 33.8(H) 27.0 - 31.0 PG 07/25/2022 2:26 PM JOURNEYMAN SHEET METAL WORKER [facility] MCHC 33.3 33.0 - 36.0 G/DL 07/25/2022 2:26 PM [facility] RDW 13.6 11.5 - 14.5 % 07/25/2022 2:26 PM JOURNEYMAN SHEET METAL WORKER [facility] PLT 260 150 - 350 x10'3/uL 07/25/2022 2:26 PM [facility] MPV 10.8(H) 7.4 - 10.4 FL 07/25/2022 2:26 PM [facility] ABS. NEUTROPHILS 14.78(H) 1.60 - 8.30 x10'3/uL 07/25/2022 2:42 PM [facility] ABS. NEUTROPHILS CALCULATED 13.55(H) 1.60 - 7.30 x10'3/uL 07/25/2022 2:42 PM JOURNEYMAN SHEET METAL WORKER [facility] ABS. LYMPHOCYTES 2.29 0.80 - 4.70 x10'3/uL 07/25/2022 2:42 PM JOURNEYMAN SHEET METAL WORKER [facility] ABS. MONOCYTES 0.53 0.00 - 1.50 x10'3/uL 07/25/2022 2:42 PM JOURNEYMAN SHEET METAL WORKER [facility] ABS. EOSINOPHILS 0.00 0.00 - 0.40 x10'3/uL 07/25/2022 2:42 PM JOURNEYMAN SHEET METAL WORKER [facility] ABS. BASOPHILS 0.00 0.00 - 0.20 x10'3/uL 07/25/2022 2:42 PM JOURNEYMAN SHEET METAL WORKER [facility] ABS. METAMYELOCYTES 0.70(H) 0.00 x10'3/uL 07/25/2022 2:42 PM JOURNEYMAN SHEET METAL WORKER [facility] ABS. MYELOCYTES 0.35(H) 0.00 x10'3/uL 07/25/2022 2:42 PM JOURNEYMAN SHEET METAL WORKER [facility] ABS. PROMYELOCYTES 0.18(H) 0.00 x10'3/uL 07/25/2022 2:42 PM JOURNEYMAN SHEET METAL WORKER [facility] ABS. NUCLEATED RBC'S 0.00 0.0 x10'3/uL 07/25/2022 2:42 PM JOURNEYMAN SHEET METAL WORKER [facility] RBC MORPHOLOGY ANISOCYTOSIS 07/25/20 2:42 PM JOURNEYMAN SHEET METAL WORKER [facility] Comment: SLIGHT MACROCYTOSIS MODERATE POIKILOCYTOSIS SLIGHT OVALOCYTES ACANTHOCYTES WBC MORPHOLOGY VACUOLATED NEUTROPHILS 07/25/2022 2:42 PM JOURNEYMAN SHEET METAL WORKER [facility] PLT MORPH. NORMAL 07/25/2022 2:42 PM JOURNEYMAN SHEET METAL WORKER [facility] 07/25/2022 2:16 PM JOURNEYMAN SHEET METAL WORKER Tracy Yo MD LABORATORY Final Result [facility] [address] [place] [address], [id number] * CULTURE, BACTERIA, BLOOD (07/25/2022 2:16 PM JOURNEYMAN SHEET METAL WORKER) SPEC DESCRIPTION BLOOD 07/25/20 2:32 PM JOURNEYMAN SHEET METAL WORKER [facility] SPECIAL REQUESTS BLOOD-AERO BIC BOTTLE ONLY 07/25/2022 2:32 PM JOURNEYMAN SHEET METAL WORKER [facility] CULTURE RESULT NO GROWTH 5 DAYS 07/30/2022 5:25 AM JOURNEYMAN SHEET METAL WORKER [facility] BLOOD SPECIMEN OBTAINED FOR BLOOD CULTURE / Unknown 07/25/2022 2:16 PM JOURNEYMAN SHEET METAL WORKER 07/25/2022 2:32 PM JOURNEYMAN SHEET METAL WORKER Tracy Yo MD MICROBIOLOGY - GENERA L ORDERABLES Final Result Performing Organization Address [facility]/State/ZIP Co de Phone Number [facility] [address] [place] [address], [phone] * Pathology (07/25/2022 12:00 AM JOURNEYMAN SHEET METAL WORKER) PATHOLOGY [facility] ? Department of Laboratory Medicine ?[address] [facility] ?[place] [address] ? , extension [phone] ? Pathology Report ? Peripheral Smear Report Name: RAY PHILLIPS ? Specimen #: [id number] Age: 9 1955 (Age: 67) ? Location: [facility] Sex: M ?Procedure Date: 07/25/2022 [facility] #: [id number] ?Date Received: 07/27/2022 Date Reported: 07/27/2022 Provider: [...] applicable), interpretation and sign-out were performed at [facility], [address] [facility], [place], [place], [address]. [facility] 07/25/2022 07/27/2022 7:5 8 AM JOURNEYMAN SHEET METAL WORKER Comment:Peripheral blood us Tracy Yo MD PATHOLOGY/CYTOLOGY OR DERABLES Final Result [facility] [address] [place] [address], [place] [phone] documented in this encounter Visit Diagnoses Not on filedocumented in this encounter Admitting Diagnoses Diagnosis Respiratory failure (CMS/HCC [facility]) Acute respiratory failure documented in this [...] in 24 hours. Given 08/05/2022 9:02 PM JOURNEYMAN SHEET METAL WORKER 650 mg Given 08/04/2022 10:28 PM JOURNEYMAN SHEET METAL WORKER 650 mg Given 08/01/2022 9:40 PM JOURNEYMAN SHEET METAL WORKER 650 mg albuterol sulfate HFA 108 (90 Base) MCG/ACT inhaler 2 puff 2 puff, Inhalation, Every 4 hours PRN, Wheezing, Shortness of breath, Starting on Sat07/25/22 at 1355, Until Sat08/08/22 at 1357 alteplase (CATHFLO) injection Code/trauma/sedation medication, Starting on Sat07/27/22 at 1034, Until Sat08/08/22 at 1357 Given 07/27/2022 10:34 AM JOURNEYMAN SHEET METAL WORKER 2 mg Chest calcium carbonate (TUMS) chewable tablet 500 mg 500 mg, Oral, Daily as needed, Indigestion, Starting on Sat08/04/22 at 1439, Until Sat08/08/22 at 1357 Given 08/04/2022 2:47 PM JOURNEYMAN SHEET METAL WORKER 500 mg cefTRIAXone (ROCEPHIN) 2 g in sodium chloride 0.9 % 50 mL IVPB 2 g, Intravenous, at 100 mL/hr, Every 24 hours, First dose on Sat08/06/22 at 1400, Until Discontinued New Bag 08/08/2022 10:55 AM JOURNEYMAN SHEET METAL WORKER 2 g 100 mL/hr New Bag 08/07/2022 2:58 PM JOURNEYMAN SHEET METAL WORKER 2 g 100 mL/hr New Bag 08/06/2022 1:25 PM JOURNEYMAN SHEET METAL WORKER 2 g 100 mL/hr enoxaparin (LOVENOX) 40 MG/0.4ML syringe 40 mg 40 mg, Subcutaneous, Nightly (enoxaparin), First dose on Sat08/03/22 at 2100, Until Discontinued, Administer by deep SubQ injection alternating between the left or right anterolateral and left or right posterolateral abdominal wall. Given 08/07/2022 8:35 PM JOURNEYMAN SHEET METAL WORKER 40 mg Right Lower Abdomen Given 08/06/2022 9:35 PM JOURNEYMAN SHEET METAL WORKER 40 mg Ri ght Lower Abdomen Given 08/05/2022 8:52 PM JOURNEYMAN SHEET METAL WORKER 40 mg Ri ght Lower Abdomen FLUoxetine (PROzac) capsule 20 mg 20 mg, Oral, Daily, First dose on Sat07/25/22 at 1700, Until Discontinued Given 08/08/2022 8:44 AM JOURNEYMAN SHEET METAL WORKER 20 mg Given 08/07/2022 8:51 AM JOURNEYMAN SHEET METAL WORKER 20 mg Given 08/06/2022 10:03 AM JOURNEYMAN SHEET METAL WORKER 20 mg gabapentin (NEURONTIN) capsule 300 mg 300 mg, Oral, 2 times daily, First dose on Sat07/25/22 at 2100, Until Discontinued Given 08/08/2022 8:44 AM JOURNEYMAN SHEET METAL WORKER 300 mg Given 08/07/2022 8:35 PM JOURNEYMAN SHEET METAL WORKER 300 mg Given 08/07/2022 8:51 AM JOURNEYMAN SHEET METAL WORKER 300 mg HYDROcodone-acetaminophen (NORCO) 10-325 MG tablet 1 tablet 1 tablet, Oral, Every 6 hours PRN, Moderate pain (Scale 4 - 7), Severe pain (Scale 8 - 10), Starting on Sat07/25/22 at 1634, Until Sat08/08/22 at 1357, Second line for moderate pain Maximum dose of acetaminophen is 4000 mg from all sources in 24 hours. Given 08/08/2022 6:00 AM JOURNEYMAN SHEET METAL WORKER 1 t ablet Given 08/07/2022 8:35 PM JOURNEYMAN SHEET METAL WORKER 1 tablet Given 08/07/2022 8:55 AM JOURNEYMAN SHEET METAL WORKER 1 tablet influenza virus vaccine (QUAD) [...] to first use. Given 08/08/2022 10:59 AM JOURNEYMAN SHEET METAL WORKER 1 puff Given 08/08/2022 8:48 AM JOURNEYMAN SHEET METAL WORKER 1 puff Given 08/08/2022 2:27 AM JOURNEYMAN SHEET METAL WORKER 1 puff lidocaine (XYLOCAINE) 1 % injection SOLN Code/trauma/sedation medication, Starting on Sat07/27/22 at 1016, Until Sat08/08/22 at 1357 Given 07/27/2022 10:16 AM JOURNEYMAN SHEET METAL WORKER 8 mLs Chest lidocaine 4 % patch 1 patch 1 patch, Transdermal, Administer over 12 Hours, Every 24 hours, First dose on Sat08/03/22 at 0615, Until Discontinued Patch Applied 08/08/2022 6:01 AM JOURNEYMAN SHEET METAL WORKER 1 patch Back Patch Applied 08/07/2022 5:47 AM JOURNEYMAN SHEET METAL WORKER 1 patch Back Patch Applied 08/06/2022 5:38 AM JOURNEYMAN SHEET METAL WORKER 1 patch Back LORazepam (ATIVAN) tablet 1 mg 1 mg, Oral, 2 times daily PRN, Anxiety, Starting on Sat07/25/22 at 1634, Until Sat08/08/22 at 1357 Given 08/08/2022 10:25 AM JOURNEYMAN SHEET METAL WORKER 1 mg Given 08/07/2022 5:13 PM JOURNEYMAN SHEET METAL WORKER 1 mg Given 08/07/2022 3:33 AM JOURNEYMAN SHEET METAL WORKER 1 mg metroNIDAZOLE (FLAGYL) tablet 500 mg 500 mg, Oral, Every 8 hours scheduled (3 times per day), First dose on Sat07/30/22 at 1430, Until Discontinued Given 08/08/2022 6:00 AM JOURNEYMAN SHEET METAL WORKER 500 mg Given 08/07/2022 10:52 PM JOURNEYMAN SHEET METAL WORKER 500 mg Given 08/07/2022 2:58 PM JOURNEYMAN SHEET METAL WORKER 500 mg morphine (MSIR) tablet 30 mg 30 mg, Oral, Every 8 hours PRN, Moderate pain (Scale 4 - 7), Starting on Sat07/25/22 at 1634, Until Sat08/08/22 at 1357, First line for moderate painIndications:Chronic Pain Given 08/08/2022 10:25 AM JOURNEYMAN SHEET METAL WORKER 3 0 mg Given 08/08/2022 2:26 AM JOURNEYMAN SHEET METAL WORKER 30 mg Given 08/07/2022 5:15 PM JOURNEYMAN SHEET METAL WORKER 30 mg normal saline 0.9 % flush 3-10 mL 3-10 mL, Intravenous, Every 8 hours, First dose on Zulema 08/02/22 at 0945, Until Discontinued, Post-Op Given 08/08/2022 8:48 AM JOURNEYMAN SHEET METAL WORKER 10 mLs Given 08/07/2022 10:52 PM JOURNEYMAN SHEET METAL WORKER 10 mLs Given 08/06/2022 10:04 AM JOURNEYMAN SHEET METAL WORKER 5 mLs normal saline 0.9 % flush 3-10 mL 3-10 mL, Intravenous, As needed, Line care, Starting on Zulema 08/02/22 at 0915, Until Sat08/08/22 at 1357, Post-Op Given 08/02/2022 6:33 PM JOURNEYMAN SHEET METAL WORKER 10 mLs ondansetron (ZOFRAN) injection 4 mg 4 mg, Intravenous, Every 8 hours PRN, Nausea, Vomiting, Starting on Sat07/25/22 at 1355, Until Sat08/08/22 at 1357, IV push over 2-5 minutes. polyethylene glycol (GLYCOLAX) packet 17 g 17 g, Oral, 2 times daily, First dose on Zulema 08/02/22 at 0945, Until Discontinued, Until bowel movement, then discontinue, Post-Op Given 08/07/2022 8:35 PM JOURNEYMAN SHEET METAL WORKER 17 g Given 08/07/2022 8:51 AM JOURNEYMAN SHEET METAL WORKER 17 g Given 08/06/2022 9:37 PM JOURNEYMAN SHEET METAL WORKER 17 g senna-docusate (SENOKOT-S) 8.6-50 MG tablet 1 tablet 1 tablet, Oral, Nightly PRN, Constipation, Starting on Zulema 08/02/22 at 0920, Until Sat08/08/22 at 1357, Post-Op Given 08/06/2022 5:43 AM JOURNEYMAN SHEET METAL WORKER 1 tablet Given 08/05/2022 5:03 AM JOURNEYMAN SHEET METAL WORKER 1 tablet sodium chloride (OCEAN) 0.65 % nasal spray 1 spray 1 spray, Each Nostril, As needed, Dryness, Starting on Sat07/25/22 at 2141, Until Sat08/08/22 at 1357 Given 07/25/2022 11:05 PM JOURNEYMAN SHEET METAL WORKER 1 spray traZODone (DESYREL) tablet 100 mg 100 mg, Oral, Nightly at bedtime, First dose on Sat07/25/22 at 2100, Until Discontinued Given 08/07/2022 8:35 PM JOURNEYMAN SHEET METAL WORKER 100 mg Given 08/06/2022 9:36 PM JOURNEYMAN SHEET METAL WORKER 100 mg Given 08/05/2022 8:52 PM JOURNEYMAN SHEET METAL WORKER 100 mg documented in this encounter Active and Recently Administered Medications Times are shown in JOURNEYMAN SHEET METAL WORKER. Scheduled Medication Order 08/06/2022 08/07/2022 08/08/2022 [...] Rule Out 07/25/2022 07/25/2022 08/01/2022 12:32 AM JOURNEYMAN SHEET METAL WORKER documented as of this encounter Care Teams Accountancy Professor Relationship Specialty Start Date End Date Joe Tam DO [address] [place] [address] PCP - General FAMILY PRACTICE 07/22/22 documented as of this encounter
--- OUTSIDE RECORDS SUMMARY | 2024-08-20 14:28 | XMS_ITS | Encounter Summary ---
Author Organization [facility] Address [address] [place] [address]. [place] [address] [place] [address] Care Team Providers Care Inpatient Pharmacist Name Role Phone Unavailable Primary Care Provider Unavailabl e Encounter Details Date Type Department Care Team (Late st Contact Info) Description 07/02/2013 Abstract [facility] [address] [place] [address] Jass Hancock MD [address] [facility] [address] [place] [address] Social History Tobacco Use Types [...] encounter Visit Diagnoses Diagnosis Septicemia (CMS/HCC [facility]) Unspecified septicemia documented in this encounter
--- OUTSIDE RECORDS SUMMARY | 2024-08-20 14:28 | XMS_ITS | Encounter Summary ---
Author Organization [facility] Address [address] [place] [address]. [place] [address] [place] [address] Care Team Providers Care Screw Machine Tool Setter Name Role Phone Unavailable Primary Care Provider Unavailabl e Encounter Details Date Type Department Care Team (Late st Contact Info) Description 04/15/[address] [facility] [place] [address] [place] [address] [place] [id number] Social History Tobacco Use Types Packs/Day Years [...]
--- OUTSIDE RECORDS SUMMARY | 2024-08-20 14:28 | XMS_ITS | Encounter Summary ---
Author Organization [facility] Address [address] [place] [address]. [place] [address] [place] [address] Care Team Providers Care Machine Farmworker Name Role Phone Unavailable Primary Care Provider Unavailabl e Encounter Details Date Type Department Care Team (Late st Contact Info) Description 12/27/2002 Abstract [facility] [address] [place] [address] , Generic Conversion, Social History Tobacco Use [...]
--- OUTSIDE RECORDS SUMMARY | 2024-08-20 14:28 | XMS_ITS | Encounter Summary ---
Author Organization [facility] - [facility] Address [address] [place] [address]. [place] [address] [place] [address] Care Team Providers Care Conductor Freight Name Role Phone Channing Panchal MD Primary Care Provider [phone] Mark Carmichael DO Primary Care Provider [phone] Reason for Visit * Reason Comments ECG (SCAN) Encounter Details Date Type Department Care Team (Late st Contact Info) Description 07/20/2022 Scan [facility] Information [facility] [address] [place] [address] Scanned, Doc Hospital ECG (SCAN) Social History [...] Unable to assess 07/28/2022 10: 30 AM CARPENTER'S HELPER documented as of this encounter Functional Status documented as of this encounter Mental Status * Question Answer Entry Date Author Status Because of a physical, mental, or emotional condition, do you have serious difficulty concentrating, remembering, or making decisions? No 07/25/2022 11:00 PM CARPENTER'S HELPER Nan Vega RN Active documented in this encounter Plan of Treatment Not on file documented as of this encounter Goals Goal Patient Goal Type Associated Problems Recent Progress Patient-Stated? Author Family - family caregiver with be involved in care transitions and discharge planning Lifestyle No Angela Dawkins, GINNING OPERATOR documented as of this encounter Procedures Procedure Name Priority Date/Time Associated Diagnosis Comments ECG GENERIC (SCAN ORDER) Routine 07/20/2022 12:00 AM CARPENTER'S HELPER documented in this encounter Results * ECG (07/20/2022 12:00 AM CARPENTER'S HELPER) 07/20/2022 us Doc Hospital Scanned SCANNING Final Resul t [facility] ONBASE documented in this encounter Visit Diagnoses Not on filedocumented in this encounter Additional Health Concerns Infection Onset Date Last Indicated Resolved Time COVID-19 Rule Out 07/25/2022 07/25/2022 08/01/2022 12:32 AM CARPENTER'S HELPER documented as of this encounter Care Teams Conductor Freight Relationship Specialty Start Date End Date Channing Panchal MD [address] [place] [address] PCP - General INTERNAL MEDICINE 08/17/21 07/21/22 Mark Carmichael DO [address] [place] [address] PCP - General FAMILY PRACTICE 07/22/22 documented as of this encounter
--- OUTSIDE RECORDS SUMMARY | 2024-08-20 14:28 | XMS_ITS | Encounter Summary ---
Author Organization [facility] Address [address] [place] [address]. [place] [address] [place] [address] Care Team Providers Care Manager Relationship Name Role Phone Unavailable Primary Care Provider Unavailabl e Encounter Details Date Type Department Care Team (Late st Contact Info) Description 03/01/2000 Abstract [facility] [address] [place] [address] , Generic Conversion, Social History Tobacco Use [...]
--- OUTSIDE RECORDS SUMMARY | 2024-08-20 14:28 | XMS_ITS | Encounter Summary ---
Author Organization [facility] Address [address] [place] [address]. [place] [address] [place] [address] Care Team Providers Care Electrostatic Powder Coating Technician Name Role Phone Unavailable Primary Care Provider Unavailabl e Encounter Details Date Type Department Care Team (Late st Contact Info) Description 11/29/2010 Abstract [facility] [address] [place] [address] Social History Tobacco Use Types Packs/Day Years [...]
--- OUTSIDE RECORDS SUMMARY | 2024-08-20 14:28 | XMS_ITS | Encounter Summary ---
Author Organization [facility] Address [address] [place] [address]. [place] [address] [place] [address] Care Team Providers Care Recreation Aide Name Role Phone Unavailable Primary Care Provider Unavailabl e Encounter Details Date Type Department Care Team (Late st Contact Info) Description 04/06/2009 Abstract [facility] [address] [place] [address] [place] [address] [place] [phone] Social History Tobacco Use Types Packs/Day Years [...]
--- OUTSIDE RECORDS SUMMARY | 2024-08-20 14:28 | XMS_ITS | Encounter Summary ---
Author Organization [facility] Address [address] [place] [address]. 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
--- OUTSIDE RECORDS SUMMARY | 2024-08-20 14:28 | XMS_ITS | Encounter Summary ---
Author Organization [facility] Address [address] [place] [address]. [place] [address] [place] [address] Care Team Providers Care Ground Crew Lines Person Name Role Phone Unavailable Primary Care Provider Unavailabl e Encounter Details Date Type Department Care Team (Late st Contact Info) Description 03/07/2004 Abstract [facility] [address] [place] [address] Brody Evans MD [address] [place] [phone] Social History Tobacco Use Types Packs/Day Years [...]
--- OUTSIDE RECORDS SUMMARY | 2024-08-20 14:28 | XMS_ITS | Encounter Summary ---
Author Organization [facility] Address [address] [place] [address]. [place] [address] [place] [address] Care Team Providers Care Auto Transmission Specialist Name Role Phone Unavailable Primary Care Provider Unavailabl e Encounter Details Date Type Department Care Team (Late st Contact Info) Description 02/26/2008 Abstract [facility] [address] [place] [address] Clint Grayson MD [address] [place] [address] Social History Tobacco Use Types [...]
--- OUTSIDE RECORDS SUMMARY | 2024-08-20 14:28 | XMS_ITS | Encounter Summary ---
Author Organization [facility] Address [address] [place] [address]. [place] [address] [place] [address] Care Team Providers Care Model Engine Mechanic Name Role Phone Unavailable Primary Care Provider Unavailabl e Encounter Details Date Type Department Care Team (Late st Contact Info) Description 11/14/2005 Abstract [facility] [place] [facility] [address] Brody Evans MD [address] [place] [phone] Social History Tobacco Use Types Packs/Day Years [...]
--- OUTSIDE RECORDS SUMMARY | 2024-08-20 14:28 | XMS_ITS | Encounter Summary ---
Author Organization [facility] Address [address] [place] [address]. [place] [address] [place] [address] Care Team Providers Care Molded Candles Wicker Name Role Phone Unavailable Primary Care Provider Unavailabl e Encounter Details Date Type Department Care Team (Late st Contact Info) Description 12/07/1999 Abstract [facility] [address] [place] [address] , Generic Conversion, Social History Tobacco Use [...]
--- OUTSIDE RECORDS SUMMARY | 2024-08-20 14:28 | XMS_ITS | Encounter Summary ---
Author Organization [facility] Address [address] [place] [address]. [place] [address] [place] [address] Care Team Providers Care Legal Nurse Consultant Name Role Phone Unavailable Primary Care Provider Unavailabl e Encounter Details Date Type Department Care Team (Late st Contact Info) Description 04/12/[address] [facility] [place] [address] [place] [address] [place] [phone] Social History Tobacco Use Types Packs/Day Years [...]
--- OUTSIDE RECORDS SUMMARY | 2024-08-20 14:28 | XMS_ITS | Encounter Summary ---
Author Organization [facility] Address [address] [place] [address]. [place] [address] [place] [address] Care Team Providers Care Internet Cafe Manager Name Role Phone Unavailable Primary Care Provider Unavailabl e Encounter Details Date Type Department Care Team (Late st Contact Info) Description 11/10/2000 Abstract [facility] [address] [place] [address] , Generic Conversion, Social History Tobacco Use [...]
--- OUTSIDE RECORDS SUMMARY | 2024-08-20 14:28 | XMS_ITS | Encounter Summary ---
Author Organization [facility] Address [address] [place] [address]. [place] [address] [place] [address] Care Team Providers Care Subassembly Supervisor Name Role Phone Unavailable Primary Care Provider Unavailabl e Encounter Details Date Type Department Care Team (Late st Contact Info) Description 12/17/2012 Abstract [facility] [address] [place] [address] [place] [address] Can Pack MD [address] [place] [phone] Social History Tobacco Use Types Packs/Day Years [...]
--- OUTSIDE RECORDS SUMMARY | 2024-08-20 14:28 | XMS_ITS | Encounter Summary ---
Author Organization [facility] Address [address] [place] [address]. [place] [address] [place] [address] Care Team Providers Care Naval Gunfire Liaison Officer Name Role Phone Unavailable Primary Care Provider Unavailabl e Encounter Details Date Type Department Care Team (Latest Contact Info) Description 10/20/2009 Abstract [facility] Social History Tobacco Use [...]
--- OUTSIDE RECORDS SUMMARY | 2024-08-20 14:28 | XMS_ITS | Encounter Summary ---
Author Organization [facility] Address [address] [place] [address]. [place] [address] [place] [address] Care Team Providers Care Cone Sewer Name Role Phone Unavailable Primary Care Provider Unavailabl e Encounter Details Date Type Department Care Team (Late st Contact Info) Description 05/15/2009 Abstract [facility] [address] [place] [address] [place] [address] Romain Bettencourt MD [address] [place] [address] Social History Tobacco Use Types Packs/Day Years [...]
--- OUTSIDE RECORDS SUMMARY | 2024-08-20 14:28 | XMS_ITS | Encounter Summary ---
Author Organization [facility] Address [address] [place] [address]. [place] [address] [place] [address] Care Team Providers Care Computer Laboratory Technician Name Role Phone Unavailable Primary Care Provider Unavailabl e Encounter Details Date Type Department Care Team (Late st Contact Info) Description 02/06/2001 Abstract [facility] [address] [place] [address] , Generic Conversion, Social History Tobacco Use [...]
--- OUTSIDE RECORDS SUMMARY | 2024-08-20 14:28 | XMS_ITS | Encounter Summary ---
Author Organization [facility] Address [address] [place] [address]. [place] [address] [place] [address] Care Team Providers Care Facialist Name Role Phone Unavailable Primary Care Provider Unavailabl e Encounter Details Date Type Department Care Team (Late st Contact Info) Description 11/25/2010 Abstract [facility] [address] [place] [address] Clint Grayson MD [address] [place] [address] Social History Tobacco Use Types [...]
--- OUTSIDE RECORDS SUMMARY | 2024-08-20 14:28 | XMS_ITS | Encounter Summary ---
Author Organization [facility] Address [address] [place] [address]. [place] [address] [place] [address] Care Team Providers Care Voting Machine Mechanic Name Role Phone Unavailable Primary Care Provider Unavailabl e Encounter Details Date Type Department Care Team (Late st Contact Info) Description 03/17/[address] [facility] [address] [facility] [place] [address] Elias Faulkner MD [address] [place] [address] Social History Tobacco Use Types Packs/Day Years [...]
--- OUTSIDE RECORDS SUMMARY | 2024-08-20 14:28 | XMS_ITS | Encounter Summary ---
Author Organization [facility] Address [address] [place] [address]. [place] [address] [place] [address] Care Team Providers Care Director Of Knowledge Management Name Role Phone Unavailable Primary Care Provider Unavailabl e Encounter Details Date Type Department Care Team (Late st Contact Info) Description 07/14/2009 Abstract [facility] [address] [facility] [place] [address] Clint Grayson MD [address] [place] [address] Social History Tobacco Use Types [...]
--- OUTSIDE RECORDS SUMMARY | 2024-08-20 14:28 | XMS_ITS | Encounter Summary ---
Author Organization [facility] - [facility] Address [address] [place] [address]. [place] [address] [place] [address] Care Team Providers Care Mobile Mechanic Name Role Phone Channing Panchal MD Primary Care Provider Encounter Details Date Type [...] COVID-19? No / Unsure 08/22/2021 2:05 PM INDUSTRIAL ROOFER documented as of this encounter Plan of Treatment Not on file documented as of this encounter Visit Diagnoses Not on filedocumented in this encounter Care Teams Mobile Mechanic Relationship Specialty Start Date End Date Channing Panchal MD [address] [place] [address] PCP - General INTERNAL MEDICINE 08/17/21 07/21/22 documented as of this encounter
--- OUTSIDE RECORDS SUMMARY | 2024-08-20 14:28 | XMS_ITS | Encounter Summary ---
Author Organization [facility] Address [address] [place] [address]. [place] [address] [place] [address] Care Team Providers Care Gi Asst Name Role Phone Unavailable Primary Care Provider Unavailabl e Encounter Details Date Type Department Care Team (Late st Contact Info) Description 03/11/2013 Abstract [facility] [address] [place] [address] Elias Faulkner MD [address] [place] [address] Social History Tobacco Use Types Packs/Day Years [...]
--- OUTSIDE RECORDS SUMMARY | 2024-08-20 14:28 | XMS_ITS | Encounter Summary ---
Author Organization [facility] Address [address] [place] [address]. [place] [address] [place] [address] Care Team Providers Care Mine Expert Name Role Phone Unavailable Primary Care Provider Unavailabl e Encounter Details Date Type Department Care Team (Late st Contact Info) Description 03/27/2004 Abstract [facility] [address] [place] [address] Brody Evans MD [address] [place] [phone] Social History Tobacco Use Types Packs/Day Years [...]
--- OUTSIDE RECORDS SUMMARY | 2024-08-20 14:28 | XMS_ITS | Encounter Summary ---
Author Organization [facility] Address [address] [place] [address]. [place] [address] [place] [address] Care Team Providers Care Bellhop Captain Name Role Phone Unavailable Primary Care Provider Unavailabl e Encounter Details Date Type Department Care Team (Late st Contact Info) Description 02/28/2000 Abstract [facility] [address] [place] [address] , Generic Conversion, Social History Tobacco Use [...]
--- OUTSIDE RECORDS SUMMARY | 2024-08-20 14:28 | XMS_ITS | Encounter Summary ---
Author Organization [facility] Address [address] [place] [address]. [place] [address] [place] [address] Care Team Providers Care Online Trader Name Role Phone Unavailable Primary Care Provider Unavailabl e Encounter Details Date Type Department Care Team (Late st Contact Info) Description 11/09/2010 Abstract [facility] [address] [place] [address] , Nancy Mcfadden MD Social History Tobacco [...]
--- OUTSIDE RECORDS SUMMARY | 2024-08-20 14:28 | XMS_ITS | Encounter Summary ---
Author Organization [facility] Address [address] [place] [address]. [place] [address] [place] [address] Care Team Providers Care Soft Sugar Cutter Name Role Phone Unavailable Primary Care Provider Unavailabl e Encounter Details Date Type Department Care Team (Late st Contact Info) Description 01/02/2001 Abstract [facility] [address] [place] [address] , Generic Conversion, Social History Tobacco Use [...]
--- OUTSIDE RECORDS SUMMARY | 2024-08-20 14:28 | XMS_ITS | Encounter Summary ---
Author Organization [facility] Address [address] [place] [address]. [place] [address] [place] [address] Care Team Providers Care Gravity Prospecting Operator Name Role Phone Unavailable Primary Care Provider Unavailabl e Encounter Details Date Type Department Care Team (Late st Contact Info) Description 03/28/2000 Abstract [facility] [address] [place] [address] , Generic Conversion, Social History Tobacco Use [...]
--- OUTSIDE RECORDS SUMMARY | 2024-08-20 14:28 | XMS_ITS | Encounter Summary ---
Author Organization [facility] Address [address] [place] [address]. [place] [address] [place] [address] Care Team Providers Care Hearings Reporter Name Role Phone Unavailable Primary Care Provider Unavailabl e Encounter Details Date Type Department Care Team (Late st Contact Info) Description 12/14/1999 Abstract [facility] [address] [place] [address] , Generic Conversion, Social History Tobacco Use [...]
--- OUTSIDE RECORDS SUMMARY | 2024-08-20 14:28 | XMS_ITS | Encounter Summary ---
Author Organization [facility] Address [address] [place] [address]. [place] [address] [place] [address] Care Team Providers Care Jute Bag Clipper Name Role Phone Mark Carmichael DO Primary Care Provider Reason for Visit * Reason Comments CT (SCAN) Encounter Details Date Type Department Care Team (Late st Contact Info) Description 07/25/2022 Scan [facility] Information [facility] [address] [place] [address] Scanned, Doc Hospital CT (SCAN) Social History [...] Coronavirus/COVID-19? No / Unsure 07/31/2022 8:31 AM PIANO STRINGER documented as of this encounter Functional Status documented as of this encounter Mental Status * Question Answer Entry Date Author Status Because of a physical, mental, or emotional condition, do you have serious difficulty concentrating, remembering, or making decisions? No 07/25/2022 11:00 PM PIANO STRINGER Nan Vega RN Active documented in this encounter Plan of Treatment Not on file documented as of this encounter Goals Goal Patient Goal Type Associated Problems Recent Progress Patient-Stated? Author Family - family caregiver with be involved in care transitions and discharge planning Lifestyle No Angela Dawkins, TELETYPE OR VARITYPE KEYBOARD OPERATOR documented as of this encounter Procedures Procedure Name Priority Date/Time Associated Diagnosis Comments CT GENERIC Routine 07/25/2022 12:00 AM PIANO STRINGER documented in this encounter Results * CT (07/25/2022 12:00 AM PIANO STRINGER) Anatomical Region Laterality Modality Other 07/25/2022 us Doc Hospital Scanned SCANNING Final Resul t documented in this encounter Visit Diagnoses Not on filedocumented in this encounter Additional Health Concerns Infection Onset Date Last Indicated Resolved Time COVID-19 Rule Out 07/25/2022 07/25/2022 08/01/2022 12:32 AM PIANO STRINGER documented as of this encounter Care Teams Jute Bag Clipper Relationship Specialty Start Date End Date Mark Carmichael DO [address] [place] [address] PCP - General FAMILY PRACTICE 07/22/22 documented as of this encounter
--- OUTSIDE RECORDS SUMMARY | 2024-08-20 14:28 | XMS_ITS | Encounter Summary ---
Author Organization [facility] Address [address] [place] [address]. [place] [address] [place] [address] Care Team Providers Care Auto Service Advisor Name Role Phone Unavailable Primary Care Provider Unavailabl e Encounter Details Date Type Department Care Team (Late st Contact Info) Description 05/07/[address] [facility] [address] [place] [address] Rolf Joy MD [address] [facility] [address] [place] [address] Social History Tobacco Use Types Packs/Day [...]
--- OUTSIDE RECORDS SUMMARY | 2024-08-20 14:28 | XMS_ITS | Encounter Summary ---
Author Organization [facility] Address [address] [place] [address]. [place] [address] [place] [address] Care Team Providers Care Negative Cleaner Name Role Phone Unavailable Primary Care Provider Unavailabl e Encounter Details Date Type Department Care Team (Late st Contact Info) Description 11/09/[address] [facility] [address] [facility] [place] [address] Clint Grayson MD [address] [place] [address] Social History Tobacco Use Types [...]
--- OUTSIDE RECORDS SUMMARY | 2024-08-20 14:28 | XMS_ITS | Encounter Summary ---
Author Organization [facility] Address [address] [place] [address]. [place] [address] [place] [address] Care Team Providers Care Direct Care Specialist Name Role Phone Unavailable Primary Care Provider Unavailabl e Encounter Details Date Type Department Care Team (Late st Contact Info) Description 08/16/2007 Abstract [facility] [address] [facility] [place] [address] Clint Grayson MD [address] [place] [address] Social History Tobacco Use Types [...]
--- OUTSIDE RECORDS SUMMARY | 2024-08-20 14:28 | XMS_ITS | Encounter Summary ---
Author Organization [facility] Address [address] [place] [address]. [place] [address] [place] [address] Care Team Providers Care R Developer Name Role Phone Unavailable Primary Care Provider Unavailabl e Encounter Details Date Type Department Care Team (Late st Contact Info) Description 04/17/[address] [facility] [place] [address] [place] [address] [place] [phone] Social History Tobacco Use Types Packs/Day Years [...]
--- OUTSIDE RECORDS SUMMARY | 2024-08-20 14:28 | XMS_ITS | Encounter Summary ---
Author Organization [facility] Address [address] [place] [address]. [place] [address] [place] [address] Care Team Providers Care Consolidator Name Role Phone Unavailable Primary Care Provider Unavailabl e Encounter Details Date Type Department Care Team (Late st Contact Info) Description 12/11/1999 Abstract [facility] [address] [place] [address] , Generic Conversion, Social History Tobacco Use [...]
--- OUTSIDE RECORDS SUMMARY | 2024-08-20 14:28 | XMS_ITS | Encounter Summary ---
Author Organization [facility] Address [address] [place] [address]. [place] [address] [place] [address] Care Team Providers Care Indirect Sales Representative Name Role Phone Unavailable Primary Care Provider Unavailabl e Encounter Details Date Type Department Care Team (Late st Contact Info) Description 12/04/2010 Abstract [facility] [address] [place] [address] , Nancy Mcfadden MD Social [...]
--- OUTSIDE RECORDS SUMMARY | 2024-08-20 14:28 | XMS_ITS | Encounter Summary ---
Author Organization [facility] Address [address] [place] [address]. [place] [address] [place] [address] Care Team Providers Care Plastic Outfitter Name Role Phone Unavailable Primary Care Provider Unavailabl e Encounter Details Date Type Department Care Team (Latest Contact Info) Description 04/07/2010 Abstract [facility] Social History Tobacco [...]
--- OUTSIDE RECORDS SUMMARY | 2024-08-20 14:28 | XMS_ITS | Encounter Summary ---
Author Organization [facility] Address [address] [place] [address]. [place] [address] [place] [address] Care Team Providers Care Principal Trainer Name Role Phone Unavailable Primary Care Provider Unavailabl e Encounter Details Date Type Department Care Team (Late st Contact Info) Description 03/01/2000 Abstract [facility] [address] [place] [address] , Generic Conversion, Social History Tobacco Use [...]
--- OUTSIDE RECORDS SUMMARY | 2024-08-20 14:28 | XMS_ITS | Encounter Summary ---
Author Organization [facility] Address [address] [place] [address]. [place] [address] [place] [address] Care Team Providers Care Mobile Application Architect Name Role Phone Unavailable Primary Care Provider Unavailabl e Encounter Details Date Type Department Care Team (Late st Contact Info) Description 07/03/2001 Abstract [facility] [address] [place] [address] , Generic Conversion, Social History Tobacco Use [...]
--- OUTSIDE RECORDS SUMMARY | 2024-08-20 14:28 | XMS_ITS | Encounter Summary ---
Author Organization [facility] Address [address] [place] [address]. [place] [address] [place] [address] Care Team Providers Care Nanny Caregiver Name Role Phone Unavailable Primary Care Provider Unavailabl e Encounter Details Date Type Department Care Team (Late st Contact Info) Description 12/12/2009 Abstract [facility] [address] [place] [address] lCint Grayson MD [address] [place] [address] Social History Tobacco Use Types [...]
--- OUTSIDE RECORDS SUMMARY | 2024-08-20 14:28 | XMS_ITS | Encounter Summary ---
Author Organization [facility] Address [address] [place] [address]. [place] [address] [place] [address] Care Team Providers Care Fuel Testing Technician Name Role Phone Unavailable Primary Care Provider Unavailabl e Encounter Details Date Type Department Care Team (Late st Contact Info) Description 11/29/2010 [facility] [address] [place] [phone] , Nancy Mcfadden MD Social History Tobacco [...]
--- OUTSIDE RECORDS SUMMARY | 2024-08-20 14:28 | XMS_ITS | Encounter Summary ---
Author Organization [facility] Address [address] [place] [address]. [place] [address] [place] [address] Care Team Providers Care Predictive Maintenance Specialist Name Role Phone Unavailable Primary Care Provider Unavailabl e Encounter Details Date Type Department Care Team (Late st Contact Info) Description 05/24/2001 Abstract [facility] [address] [place] [address] , Generic Conversion, Social History Tobacco Use [...]
--- OUTSIDE RECORDS SUMMARY | 2024-08-20 14:28 | XMS_ITS | Encounter Summary ---
Author Organization [facility] Address [address] [place] [address]. [place] [address] [place] [address] Care Team Providers Care Emergency Department Director Name Role Phone Unavailable Primary Care Provider Unavailabl e Encounter Details Date Type Department Care Team (Late st Contact Info) Description 06/27/2000 Abstract [facility] [address] [place] [address] , Generic Conversion, Social History Tobacco Use [...]
--- OUTSIDE RECORDS SUMMARY | 2024-08-20 14:28 | XMS_ITS | Encounter Summary ---
Author Organization [facility] Address [address] [place] [address]. [place] [address] [place] [address] Care Team Providers Care Plastic Surgery Nurse Name Role Phone Unavailable Primary Care Provider Unavailabl e Encounter Details Date Type Department Care Team (Late st Contact Info) Description 02/22/2001 Abstract [facility] [address] [place] [address] , Generic Conversion, Social History Tobacco Use [...]
--- OUTSIDE RECORDS SUMMARY | 2024-08-20 14:28 | XMS_ITS | Encounter Summary ---
Author Organization [facility] Address [address] [place] [address]. [place] [address] [place] [address] Care Team Providers Care Tumbler Plater Name Role Phone Unavailable Primary Care Provider Unavailabl e Encounter Details Date Type Department Care Team (Late st Contact Info) Description 10/15/2000 Abstract [facility] [address] [place] [address] , Generic Conversion, Social History Tobacco Use [...]
--- OUTSIDE RECORDS SUMMARY | 2024-08-20 14:28 | XMS_ITS | Encounter Summary ---
Author Organization [facility] Address [address] [place] [address]. [place] [address] [place] [address] Care Team Providers Care Commercial Insulator Name Role Phone Mark Carmichael DO Primary Care Provider [phone] Encounter Details Date Type Department Care Team [...] Coronavirus/COVID-19? No / Unsure 07/25/2022 11:16 PM PACKAGING LINE OPERATOR documented as of this encounter Functional Status documented as of this encounter Mental Status * Question Answer Entry Date Author Status Because of a physical, mental, or emotional condition, do you have serious difficulty concentrating, remembering, or making decisions? No 07/25/2022 11:00 PM PACKAGING LINE OPERATOR Nan Vega RN Active documented in this encounter Plan of Treatment Not on file documented as of this encounter Visit Diagnoses Not on filedocumented in this encounter Additional Health Concerns Infection Onset Date Last Indicated Resolved Time COVID-19 Rule Out 07/25/2022 07/25/2022 08/01/2022 12:32 AM PACKAGING LINE OPERATOR documented as of this encounter Care Teams Commercial Insulator Relationship Specialty Start Date End Date Mark Carmichael DO [address] [place] [address] PCP - General FAMILY PRACTICE 07/22/22 documented as of this encounter
--- OUTSIDE RECORDS SUMMARY | 2024-08-20 14:28 | XMS_ITS | Encounter Summary ---
Author Organization [facility] Address [address] [place] [address]. [place] [address] [place] [address] Care Team Providers Care District Manager Major Accounts Sales Name Role Phone Channing Panchal MD Primary [...] COVID-19? No / Unsure 08/17/2021 2:14 PM ALLOPATHIC DOCTOR documented as of this encounter Plan of Treatment Not on file documented as of this encounter Visit Diagnoses Not on filedocumented in this encounter Care Teams District Manager Major Accounts Sales Relationship Specialty Start Date End Date Channing Panchal MD [address] [place] [address] PCP - General INTERNAL MEDICINE 08/17/21 07/21/22 documented as of this encounter
--- OUTSIDE RECORDS SUMMARY | 2024-08-20 14:28 | XMS_ITS | Encounter Summary ---
Author Organization [facility] Address [address] [place] [address]. [place] [address] [place] [address] Care Team Providers Care Cyber Transport Systems Specialist Name Role Phone Unavailable Primary Care Provider Unavailabl e Encounter Details Date Type Department Care Team (Late st Contact Info) Description 05/24/2000 Abstract [facility] [address] [place] [address] , Generic Conversion, Social History Tobacco Use [...]
--- OUTSIDE RECORDS SUMMARY | 2024-08-20 14:28 | XMS_ITS | Encounter Summary ---
Author Organization [facility] Address [address] [place] [address]. [place] [address] [place] [address] Care Team Providers Care Manager Business Process Name Role Phone Unavailable Primary Care Provider Unavailabl e Encounter Details Date Type Department Care Team (Late st Contact Info) Description 11/15/[address] [facility] [address] [place] [address] Ethan Ponce MD [address] [place] [address] Social History Tobacco Use Types Packs/Day Years [...]
--- OUTSIDE RECORDS SUMMARY | 2024-08-20 14:28 | XMS_ITS | Encounter Summary ---
Author Organization [facility] Address [address] [place] [address]. [place] [address] [place] [address] Care Team Providers Care Traveling Repair Accountant Name Role Phone Unavailable Primary Care Provider Unavailabl e Encounter Details Date Type Department Care Team (Late st Contact Info) Description 09/26/2000 Abstract [facility] [address] [place] [address] , Generic Conversion, Social History Tobacco Use [...]
--- OUTSIDE RECORDS SUMMARY | 2024-08-20 14:28 | XMS_ITS | Encounter Summary ---
Author Organization [facility] Address [facility] [place] [address] [place] [address] Care Team Providers Care Sandblast Carver Name Role Phone Mark Carmichael DO Primary Care Provider [phone] Reason for Visit * Auth/Cert (Routine) Specialty Diagnoses / Procedures Referred By Contac t Referred To Contact Diagnoses Respiratory failure (CMS/HCC [facility]/HCC) Acute respiratory failure Respiratory failure ([facility]) Procedures NONE De Villasenor MD [address] [place] [address] Phone: tel: fax: Referral ID Status Reason Start Date Expiration Date Visits Re quested Visits Authorized [id number] 1 Encounter Details Date Type Department Care Team (Late st Contact Info) Description 07/30/2022 3:06 PM ELECTRONICS TEACHER Anesthesia Event [facility] [address] [place] [address] Nicole Lamar MD [address] [place] [address] Brody Rm CRNA [address] [place] [address] [place] [id number] Anesthesia Record Procedure Summary Procedure Name Responsible Anesthesiologist Anesthesia Start Time Anesthesia Stop Time DIAGNOSTIC BRONCHOSCOPY, BAL OF RIGHT LOWER LOBE (Bilateral: Throat) Nicole Lamar MD 07/30/22 1506 07/30/22 1551 Events Date Time Event Comment 07/30/2022 1506 An Start Patient ID and consent checked and patient reassessed. 1506 An Start Data 1511 1511 AN Anesthesia Prepped 1514 Preoxygenation 1516 AN ELECTRICAL INSPECTOR Prepped 1523 An Induction The patient was [...] Coronavirus/COVID-19? No / Unsure 07/30/2022 6:53 AM ELECTRONICS TEACHER documented as of this encounter Functional Status * RETIRED Are you deaf or do you have serious difficulty hearing Answer Date of Assessment Author Status No 07/25/2022 11:00 PM ELECTRONICS TEACHER Acti ve * RETIRED Are you blind or do you have serious difficulty seeing, even when wearing glasses? Answer Date of Assessment Author Status No 07/25/2022 11:00 PM ELECTRONICS TEACHER Acti ve * Do you have serious difficulty walking or climbing stairs? Answer Date of Assessment Author Status No 07/25/2022 11:00 PM ELECTRONICS TEACHER Katie Vega ma, RN Active * Do you have difficulty dressing or bathing? Answer Date of Assessment Author Status No 07/25/2022 11:00 PM ELECTRONICS TEACHER Katie Vega ma, RN Active * Because of a physical, mental, or emotional condition, do you have difficulty doing errands alone such as visiting a doctor's office or shopping? Answer Date of Assessment Author Status No 07/25/2022 11:00 PM ELECTRONICS TEACHER Katie Vega ma, RN Active documented as of this encounter Mental Status * Because of a physical, mental, or emotional condition, do you have serious difficulty concentrating, remembering, or making decisions? Answer Entry Date Author Status No 07/25/2022 11:00 PM ELECTRONICS TEACHER Katie Vega ma, RN Active documented in [...] Postoperative Hydration: euvolemic No notable events documented. TRONICS TEACHER * Anesthesia Preprocedure Evaluation - Nicole Lamar [...] including but not limited to intraoperative awareness,stroke, [place], and .) of whom consent wasobtained. Consent of blood products not discussed. . TRONICS TEACHER TRONICS TEACHER TRONICS TEACHER documented in this encounter Plan of Treatment Not on file documented as of this encounter Goals Goal Patient Goal Type Associated Problems Recent Progress Patient-Stated? Author Family - family caregiver with be involved in care transitions and discharge planning Lifestyle No Angela Dawkins, COST CONTROL ANALYST documented as of this encounter Visit Diagnoses Not on filedocumented in this encounter Administered Medications Inactive Administered Medications - up to 3 most recent administrations Medication Order MAR Action Action Date Dose Rate Site fentaNYL (SUBLIMAZE) injection Intravenous, PRN, Starting on Sat07/30/22 at 1521, Until Sat07/30/22 at 1551, Anesthesia Intra-Op Given 07/30/2022 3:21 PM ELECTRONICS TEACHER 50 mcg lactated ringers infusion Intravenous, Continuous PRN, Starting on Sat07/30/22 at 1505, Until Sat07/30/22 at 1551, Anesthesia Intra-Op New Bag 07/30/2022 3:05 PM ELECTRONICS TEACHER lidocaine (PF) (XYLOCAINE) 1 % injection Intravenous, PRN, Starting on Sat07/30/22 at 1521, Until Sat07/30/22 at 1551, Anesthesia Intra-Op Given 07/30/2022 3:21 PM ELECTRONICS TEACHER 50 mg ondansetron (ZOFRAN) injection Intravenous, PRN, Starting on Sat07/30/22 at 1535, Until Sat07/30/22 at 1551, Anesthesia Intra-Op Given 07/30/2022 3:35 PM ELECTRONICS TEACHER 4 mg phenylephrine (REY-SYNEPHRINE) injection Intravenous, PRN, Starting on Sat07/30/22 at 1523, Until Sat07/30/22 at 1551, Anesthesia Intra-Op Given 07/30/2022 3:50 PM ELECTRONICS TEACHER 100 mcg Given 07/30/2022 3:27 PM ELECTRONICS TEACHER 200 mcg Given 07/30/2022 3:23 PM ELECTRONICS TEACHER 100 mcg propofol (DIPRIVAN) IV bolus Intravenous, PRN, Starting on Sat07/30/22 at 1523, Until Sat07/30/22 at 1551, Anesthesia Intra-Op Given 07/30/2022 3:23 PM ELECTRONICS TEACHER 120 mg succinylcholine (ANECTINE) injection Intravenous, PRN, Starting on Sat07/30/22 at 1523, Until Sat07/30/22 at 1551, Anesthesia Intra-Op Given 07/30/2022 3:23 PM ELECTRONICS TEACHER 60 mg documented in this encounter Additional Health Concerns Infection Onset Date Last Indicated Resolved Time COVID-19 Rule Out 07/25/2022 07/25/2022 08/01/2022 12:32 AM ELECTRONICS TEACHER documented as of this encounter Care Teams Sandblast Carver Relationship Specialty Start Date End Date Mark Carmichael DO [address] [place] [address] PCP - General FAMILY PRACTICE 07/22/22 documented as of this encounter
--- OUTSIDE RECORDS SUMMARY | 2024-08-20 14:28 | XMS_ITS | Encounter Summary ---
Author Organization [facility] Address [address] [place] [address]. [place] [address] [place] [address] Care Team Providers Care Conveyor Loader Name Role Phone Unavailable Primary Care Provider Unavailabl e Encounter Details Date Type Department Care Team (Late st Contact Info) Description 11/09/2010 [facility] [address] [place] [address] , Nancy Mcfadden MD Social History Tobacco [...]
--- OUTSIDE RECORDS SUMMARY | 2024-08-20 14:28 | XMS_ITS | Encounter Summary ---
Author Organization [facility] Address [address] [place] [address]. [place] [address] [place] [address] Care Team Providers Care Phlebotomy Support Tech Name Role Phone Unavailable Primary Care Provider Unavailabl e Encounter Details Date Type Department Care Team (Late st Contact Info) Description 01/01/2002 Abstract [facility] [address] [place] [address] , Generic Conversion, Social History Tobacco Use [...]
--- OUTSIDE RECORDS SUMMARY | 2024-08-20 14:28 | XMS_ITS | Encounter Summary ---
Author Organization [facility] Address [address] [place] [address]. [place] [address] [place] [address] Care Team Providers Care Market Editor Name Role Phone Channing Panchal MD Primary Care Provider [phone] Mark Carmichael DO Primary Care Provider [phone] Encounter Details Date Type Department Care Team (Late st Contact Info) Description 02/07/2019 Abstract [facility] [address] [place] [address] , Generic ConversionMD Social History Tobacco Use [...] Rule Out 07/25/2022 07/25/2022 08/01/2022 12:32 AM LIME KILN WORKER HELPER documented as of this encounter Care Teams Market Editor Relationship Specialty Start Date End Date Channing Panchal MD [address] [place] [address] PCP - General INTERNAL MEDICINE 08/17/21 07/21/22 Mark Carmichael DO [address] [place] [address] PCP - General FAMILY PRACTICE 07/22/22 documented as of this encounter
--- OUTSIDE RECORDS SUMMARY | 2024-08-20 14:28 | XMS_ITS | Encounter Summary ---
Author Organization [facility] Address [address] [place] [address]. [place] [address] [place] [address] Care Team Providers Care Learning And Development Consultant Name Role Phone Unavailable Primary Care Provider Unavailabl e Encounter Details Date Type Department Care Team (Late st Contact Info) Description 03/14/2000 Abstract [facility] [address] [place] [address] , Generic Conversion, Social History Tobacco Use [...]
--- OUTSIDE RECORDS SUMMARY | 2024-08-20 14:28 | XMS_ITS | Encounter Summary ---
Author Organization [facility] Address [address] [place] [address]. [place] [address] [place] [address] Care Team Providers Care Tissue Coordinator Name Role Phone Unavailable Primary Care Provider Unavailabl e Encounter Details Date Type Department Care Team (Late st Contact Info) Description 11/03/2000 Abstract [facility] [address] [place] [address] , Generic Conversion, Social History Tobacco Use [...]
--- OUTSIDE RECORDS SUMMARY | 2024-08-20 14:28 | XMS_ITS | Encounter Summary ---
Author Organization [facility] Address [address] [place] [address]. [place] [address] [place] [address] Care Team Providers Care Socket Welder Helper Name Role Phone Unavailable Primary Care Provider Unavailabl e Encounter Details Date Type Department Care Team (Late st Contact Info) Description 07/02/2013 Abstract [facility] [address] [place] [address] [place] [address] Can Pack MD [address] [place] [address] Social History Tobacco Use Types Packs/Day Years [...]
--- OUTSIDE RECORDS SUMMARY | 2024-08-20 14:28 | XMS_ITS | Encounter Summary ---
Author Organization [facility] Address [address] [place] [address]. [place] [address] [place] [address] Care Team Providers Care Assistant Statistician Name Role Phone Unavailable Primary Care Provider Unavailabl e Encounter Details Date Type Department Care Team (Late st Contact Info) Description 04/08/2007 Abstract [facility] [address] [place] [address] Clint Grayson MD [address] [place] [address] Social History Tobacco Use Types [...]
--- OUTSIDE RECORDS SUMMARY | 2024-08-20 14:28 | XMS_ITS | Encounter Summary ---
Author Organization [facility] Address [address] [place] [address]. [place] [address] [place] [address] Care Team Providers Care Athletic Scout Name Role Phone Unavailable Primary Care Provider Unavailabl e Encounter Details Date Type Department Care Team (Latest Contact Info) Description 08/14/1999 Abstract [facility] Social History Tobacco [...]
--- OUTSIDE RECORDS SUMMARY | 2024-08-20 14:28 | XMS_ITS | Encounter Summary ---
Author Organization [facility] Address [address] [place] [address]. [place] [address] [place] [address] Care Team Providers Care Client Support Representative Name Role Phone Unavailable Primary Care Provider Unavailabl e Encounter Details Date Type Department Care Team (Late st Contact Info) Description 04/05/2017 Abstract [facility] [facility] [place] [address] Brent Marie MD [address] [place] [id number] Social History Tobacco Use Types Packs/Day Years [...]
--- OUTSIDE RECORDS SUMMARY | 2024-08-20 14:28 | XMS_ITS | Encounter Summary ---
Author Organization [facility] Address [address] [place] [address]. [place] [address] [place] [address] Care Team Providers Care Dietetic Technician Registered Name Role Phone Unavailable Primary Care Provider Unavailabl e Encounter Details Date Type Department Care Team (Late st Contact Info) Description 12/25/1999 Abstract [facility] [address] [place] [address] , Generic Conversion, Social History Tobacco Use [...]
--- OUTSIDE RECORDS SUMMARY | 2024-08-20 14:28 | XMS_ITS | Encounter Summary ---
Author Organization [facility] Address [address] [place] [address]. [place] [address] [place] [address] Care Team Providers Care Operations Consultant Name Role Phone Unavailable Primary Care Provider Unavailabl e Encounter Details Date Type Department Care Team (Late st Contact Info) Description 04/05/2000 Abstract [facility] [address] [place] [address] , Generic Conversion, Social History Tobacco Use [...]
--- OUTSIDE RECORDS SUMMARY | 2024-08-20 14:28 | XMS_ITS | Encounter Summary ---
Author Organization [facility] Address [address] [place] [address]. [place] [address] [place] [address] Care Team Providers Care Keyboard Operator Name Role Phone Unavailable Primary Care Provider Unavailabl e Encounter Details Date Type Department Care Team (Late st Contact Info) Description 05/21/[address] [facility] [address] [place] [address] Ethan Ponce MD [address] [place] [address] Social History Tobacco Use Types Packs/Day Years [...] DESCRIPTION GASTRIC BIOPSY 05/21/2017 9:33 AM CDT [facility] SPECIAL REQUESTS NO SPECIAL REQUEST 05/21/2017 9:33 AM CDT [facility] DIRECT EXAM PRESUMPTIVE NEGATIVE FOR H. PYLORI 05/21/2017 1:42 PM CDT [facility] GASTRIC BIOPSY SPECIMEN / Unknown 05/21/2017 9:14 AM CDT 05/21/2017 9:35 AM CDT us Generic Conversion Md [facility]CRO[facility] - GENERAL ORDERABLES Final Result [facility] [address] [place] [address], documented in this encounter Visit Diagnoses Diagnosis Gastritis without bleeding Unspecified gastritis and gastroduodenitis without mention of hemorrhage documented in this encounter
--- OUTSIDE RECORDS SUMMARY | 2024-08-20 14:28 | XMS_ITS | Encounter Summary ---
Author Organization [facility] Address [address] [place] [address]. [place] [address] [place] [address] Care Team Providers Care Basket Sorter Name Role Phone Unavailable Primary Care Provider Unavailabl e Encounter Details Date Type Department Care Team (Late st Contact Info) Description 03/13/[address] [facility] [address] [place] [address] Ethan Ponce MD [address] [place] [address] Social History Tobacco Use Types Packs/Day Years [...]
--- OUTSIDE RECORDS SUMMARY | 2024-08-20 14:28 | XMS_ITS | Encounter Summary ---
Author Organization [facility] Address [address] [place] [address]. [place] [address] [place] [address] Care Team Providers Care Truck Safety Inspector Name Role Phone Unavailable Primary Care Provider Unavailabl e Encounter Details Date Type Department Care Team (Late st Contact Info) Description 10/13/1999 Abstract [facility] [address] [place] [address] , Generic Conversion, Social History Tobacco Use [...]
--- OUTSIDE RECORDS SUMMARY | 2024-08-20 14:28 | XMS_ITS | Encounter Summary ---
Author Organization [facility] Address [address] [place] [address]. [place] [address] [place] [address] Care Team Providers Care Community Assistant Name Role Phone Unavailable Primary Care Provider Unavailabl e Encounter Details Date Type Department Care Team (Late st Contact Info) Description 04/16/2000 Abstract [facility] [address] [place] [address] , Generic Conversion, Social History Tobacco Use [...]
--- OUTSIDE RECORDS SUMMARY | 2024-08-20 14:28 | XMS_ITS | Encounter Summary ---
Author Organization [facility] Address [address] [place] [address]. [place] [address] [place] [address] Care Team Providers Care Rack Maker Name Role Phone Unavailable Primary Care Provider Unavailabl e Encounter Details Date Type Department Care Team (Late st Contact Info) Description 10/23/2006 Abstract [facility] [address] [place] [address] Clint Grayson MD [address] [place] [address] Social History Tobacco Use Types [...]
--- OUTSIDE RECORDS SUMMARY | 2024-08-20 14:28 | XMS_ITS | Encounter Summary ---
Author Organization [facility] Address [address] [place] [address]. [place] [address] [place] [address] Care Team Providers Care Cutlery Grinder Name Role Phone Unavailable Primary Care Provider Unavailabl e Encounter Details Date Type Department Care Team (Late st Contact Info) Description 04/18/[address] [facility] [place] [address] [place] [address] [place] [phone] Social History Tobacco Use Types Packs/Day Years [...]
--- OUTSIDE RECORDS SUMMARY | 2024-08-20 14:28 | XMS_ITS | Encounter Summary ---
Author Organization [facility] Address [address] [place] [address]. [place] [address] [place] [address] Care Team Providers Care Client Experience Specialist Name Role Phone Channing Panchal MD Primary Care Provider [phone] Reason for Referral * Imaging (Routine) - Closed Specialty Diagnoses / Procedures Referred By Amanda espinoza Referred To Contact RADIOLOGY Diagnoses Lumbosacral radiculitis Procedures CT LUMB SPINE WO CON Ignacio Stephens MD [address] [place] [address] Phone: tel: fax: Referral ID Status Reason Start Date Expiration Date Visits Re quested Visits Authorized [id number] Closed 08/17/2021 09/17/2022 1 1 STOCK CLERK Reason for Visit * Imaging (Routine) - Closed Specialty Diagnoses / Procedures Referred By Amanda espinoza Referred To Contact RADIOLOGY Diagnoses Lumbosacral radiculitis Procedures [place] [address] [place] [address] Phone: tel: fax: Referral ID Status Reason Start Date Expiration Date Visits Re quested Visits Authorized [id number] Closed 08/17/2021 09/17/2022 1 1 Encounter Details Date Type Department Care Team (Latest Contact Info) Description 08/22/2021 2:08 PM DRUM STOCK CLERK - 08/22/2021 11:59 PM DRUM STOCK CLERK Hospital Encounter [facility] [address] [place] [address] Ignacio Stephens MD [address] [address] Discharge Disposition: Home or Self Care (Routine [...] COVID-19? No / Unsure 08/22/2021 2:05 PM DRUM STOCK CLERK documented as of this encounter Medications at Time of Discharge VASCEPA 1 g capsule Take 2 g by mouth 2 (two) times daily. 08/11/2021 documented as of this encounter Plan of Treatment Not on file documented as of this encounter Procedures Procedure Name Priority Date/Time Associated Diagnosis Comments CT LUMB SPINE WO CON Routine 08/22/2021 2:22 PM DRUM STOCK CLERK Lumbosacral radiculitis documented in this encounter Results * CT LUMB SPINE WO CON (08/22/2021 2:22 PM DRUM STOCK CLERK) Anatomical Region Laterality Modality Spine Computed Tomogra phy 08/23/2021 10:2 9 AM DRUM STOCK CLERK Impressions 08/23/2021 10:38 AM DRUM STOCK CLERK IMPRESSION: 1. 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 Ordered By: IGNACIO STEPHENS Interpreted By: Car Tang MD, 08/23/2021 10:29 AM Narrative 08/23/2021 10:38 AM DRUM STOCK CLERK DATE: 08/22/2021 2:22 PM INDICATION: Low back [...] unspecified documented in this encounter Care Teams Client Experience Specialist Relationship Specialty Start Date End Date Channing Panchal MD [address] [place] [address] PCP - General INTERNAL MEDICINE 08/17/21 07/21/22 documented as of this encounter
--- OUTSIDE RECORDS SUMMARY | 2024-08-20 14:28 | XMS_ITS | Encounter Summary ---
Author Organization [facility] Address [address] [place] [address]. [place] [address] [place] [address] Care Team Providers Care Linoleum Mechanic Name Role Phone Unavailable Primary Care Provider Unavailabl e Encounter Details Date Type Department Care Team (Late st Contact Info) Description 05/21/2000 Abstract [facility] [address] [place] [address] , Generic Conversion, Social History Tobacco Use [...]
--- OUTSIDE RECORDS SUMMARY | 2024-08-20 14:28 | XMS_ITS | Encounter Summary ---
Author Organization [facility] Address [address] [place] [address]. [place] [address] [place] [address] Care Team Providers Care Nursery Teacher Name Role Phone Unavailable Primary Care Provider Unavailabl e Encounter Details Date Type Department Care Team (Late st Contact Info) Description 07/29/2013 Abstract [facility] [address] [place] [address] Elias Faulkner MD [address] [place] [address] Social History Tobacco Use Types Packs/Day Years Used Date Smoking Tobacco: Never Assessed Sex and Gender Information Value Date Recorded Sex Assigned at Not on file Legal Sex Male 8:52 PM CDT Gender Identity Not on file Sexual Orientation Not on file documented as of this encounter Plan of Treatment Not on file documented as of this encounter Visit Diagnoses Diagnosis MCC current use of anticoagulant therapy documented in this encounter
--- OUTSIDE RECORDS SUMMARY | 2024-08-20 14:28 | XMS_ITS | Encounter Summary ---
Author Organization [facility] Address [address] [place] [address]. [place] [address] [place] [address] Care Team Providers Care Theater Manager Name Role Phone Unavailable Primary Care Provider Unavailabl e Encounter Details Date Type Department Care Team (Late st Contact Info) Description 03/26/2001 Abstract [facility] [address] [place] [address] , Generic Conversion, Social History Tobacco Use [...]
--- OUTSIDE RECORDS SUMMARY | 2024-08-20 14:28 | XMS_ITS | Encounter Summary ---
Author Organization [facility] Address [address] [place] [address]. [place] [address] [place] [address] Care Team Providers Care Breaker Unit Assembler Name Role Phone Unavailable Primary Care Provider Unavailabl e Encounter Details Date Type Department Care Team (Late st Contact Info) Description 03/01/2010 Abstract [facility] [address] [place] [address] Social History Tobacco Use Types Packs/Day Years [...]
--- OUTSIDE RECORDS SUMMARY | 2024-08-20 14:28 | XMS_ITS | Encounter Summary ---
Author Organization [facility] Address [address] [place] [address]. [place] [address] [place] [address] Care Team Providers Care Fire Chief Deputy Name Role Phone Mark Carmichael DO Primary Care Provider [phone] Encounter Details Date Type Department Care Team [...] Unable to assess 07/28/2022 10: 30 AM EMERGENCY ROOM ORDERLY documented as of this encounter Functional Status * RETIRED Are you deaf or do you have serious difficulty hearing Answer Date of Assessment Author Status No 07/25/2022 11:00 PM EMERGENCY ROOM ORDERLY Acti ve * RETIRED Are you blind or do you have serious difficulty seeing, even when wearing glasses? Answer Date of Assessment Author Status No 07/25/2022 11:00 PM EMERGENCY ROOM ORDERLY Acti ve * Do you have serious difficulty walking or climbing stairs? Answer Date of Assessment Author Status No 07/25/2022 11:00 PM EMERGENCY ROOM ORDERLY Katie Vega ma, RN Active * Do you have difficulty dressing or bathing? Answer Date of Assessment Author Status No 07/25/2022 11:00 PM EMERGENCY ROOM ORDERLY Katie Vega ma, RN Active * Because of a physical, mental, or emotional condition, do you have difficulty doing errands alone such as visiting a doctor's office or shopping? Answer Date of Assessment Author Status No 07/25/2022 11:00 PM EMERGENCY ROOM ORDERLY Katie Vega ma, RN Active documented as of this encounter Mental Status * Because of a physical, mental, or emotional condition, do you have serious difficulty concentrating, remembering, or making decisions? Answer Entry Date Author Status No 07/25/2022 11:00 PM EMERGENCY ROOM ORDERLY Katie Vega ma, RN Active documented in this encounter Plan of Treatment Not on file documented as of this encounter Goals Goal Patient Goal Type Associated Problems Recent Progress Patient-Stated? Author Family - family caregiver with be involved in care transitions and discharge planning Lifestyle No Angela Dawkins, PHARMACEUTICAL DEVELOPMENT TECHNICIAN documented as of this encounter Visit Diagnoses Not on filedocumented in this encounter Additional Health Concerns Infection Onset Date Last Indicated Resolved Time COVID-19 Rule Out 07/25/2022 07/25/2022 08/01/2022 12:32 AM EMERGENCY ROOM ORDERLY documented as of this encounter Care Teams Fire Chief Deputy Relationship Specialty Start Date End Date Mark Carmichael DO [address] [place] [address] PCP - General FAMILY PRACTICE 07/22/22 documented as of this encounter
--- OUTSIDE RECORDS SUMMARY | 2024-08-20 14:28 | XMS_ITS | Encounter Summary ---
Author Organization [facility] Address [address] [place] [address]. [place] [address] [place] [address] Care Team Providers Care Operator Weapon Locating Radar Name Role Phone Unavailable Primary Care Provider Unavailabl e Encounter Details Date Type Department Care Team (Late st Contact Info) Description 12/28/2002 Abstract [facility] [address] [place] [address] , Generic Conversion, Social History Tobacco Use [...]
--- OUTSIDE RECORDS SUMMARY | 2024-08-20 14:28 | XMS_ITS | Encounter Summary ---
Author Organization [facility] Address [address] [place] [address]. [place] [address] [place] [address] Care Team Providers Care Shredder Tender Name Role Phone Unavailable Primary Care Provider Unavailabl e Encounter Details Date Type Department Care Team (Late st Contact Info) Description 12/27/1999 Abstract [facility] [address] [place] [address] , Generic Conversion, Social History Tobacco Use [...]
--- OUTSIDE RECORDS SUMMARY | 2024-08-20 14:28 | XMS_ITS | Encounter Summary ---
Author Organization [facility] Address [address] [place] [address]. [place] [address] [place] [address] Care Team Providers Care Children'S Choir Director Name Role Phone Unavailable Primary Care Provider Unavailabl e Encounter Details Date Type Department Care Team (Late st Contact Info) Description 11/29/2010 [facility] [address] [place] [address] , Nancy Mcfadden MD Social History Tobacco [...]
--- OUTSIDE RECORDS SUMMARY | 2024-08-20 14:28 | XMS_ITS | Encounter Summary ---
Author Organization [facility] Address [address] [place] [address]. [place] [address] [place] [address] Care Team Providers Care Back Shoe Cutter Name Role Phone Unavailable Primary Care Provider Unavailabl e Encounter Details Date Type Department Care Team (Late st Contact Info) Description 03/09/2009 Abstract [facility] [address] [place] [address] Clint Grayson MD [address] [place] [address] Social History Tobacco Use Types [...]
--- OUTSIDE RECORDS SUMMARY | 2024-08-20 14:28 | XMS_ITS | Encounter Summary ---
Author Organization [facility] Address [address] [place] [address]. [place] [address] [place] [address] Care Team Providers Care Clean Room Assembler Name Role Phone Unavailable Primary Care Provider Unavailabl e Encounter Details Date Type Department Care Team (Late st Contact Info) Description 01/13/2000 Abstract [facility] [address] [place] [address] , Generic Conversion, Social History Tobacco Use [...]
--- OUTSIDE RECORDS SUMMARY | 2024-08-20 14:29 | XMS_ITS | Encounter Summary ---
Author Organization [facility] Address [address] [place] [address]. [place] [address] [place] [address] Care Team Providers Care Lead Man Over All Dies In Pattern Shop Name Role Phone Unavailable Primary Care Provider Unavailabl e Encounter Details Date Type Department Care Team (Late st Contact Info) Description 06/02/1999 Abstract [facility] [address] [place] [address] , Generic Conversion, Social History Tobacco Use [...]
--- OUTSIDE RECORDS SUMMARY | 2024-08-20 14:29 | XMS_ITS | Encounter Summary ---
Author Organization [facility] Address [address] [place] [address]. [place] [address] [place] [address] Care Team Providers Care Gore Stitcher Name Role Phone Unavailable Primary Care Provider Unavailabl e Encounter Details Date Type Department Care Team (Late st Contact Info) Description 02/06/1999 Abstract [facility] [address] [place] [address] , Generic Conversion, Social History Tobacco Use [...]
--- OUTSIDE RECORDS SUMMARY | 2024-08-20 14:29 | XMS_ITS | Encounter Summary ---
Author Organization [facility] Address [address] [place] [address]. [place] [address] [place] [address] Care Team Providers Care Life Skills Educator Name Role Phone Unavailable Primary Care Provider Unavailabl e Encounter Details Date Type Department Care Team (Late st Contact Info) Description 01/27/1999 Abstract [facility] [address] [place] [address] , Generic Conversion, Social History Tobacco Use [...]
--- OUTSIDE RECORDS SUMMARY | 2024-08-20 14:29 | XMS_ITS | Encounter Summary ---
Author Organization [facility] Address [address] [place] [address]. [place] [address] [place] [address] Care Team Providers Care Hunter Trapper Name Role Phone Unavailable Primary Care Provider Unavailabl e Encounter Details Date Type Department Care Team (Late st Contact Info) Description 06/11/1999 Abstract [facility] [address] [place] [address] , Generic Conversion, Social History Tobacco Use [...]
--- OUTSIDE RECORDS SUMMARY | 2024-08-20 14:29 | XMS_ITS | Encounter Summary ---
Author Organization [facility] Address [address] [place] [address]. [place] [address] [place] [address] Care Team Providers Care Dresser Tender Name Role Phone Unavailable Primary Care Provider Unavailabl e Encounter Details Date Type Department Care Team (Late st Contact Info) Description 05/02/1999 Abstract [facility] [address] [place] [address] , Generic Conversion, Social History Tobacco Use [...]
--- OUTSIDE RECORDS SUMMARY | 2024-08-20 14:29 | XMS_ITS | Encounter Summary ---
Author Organization [facility] Address [address] [place] [address]. [place] [address] [place] [address] Care Team Providers Care Wood Cabinet Finisher Name Role Phone Unavailable Primary Care Provider Unavailabl e Encounter Details Date Type Department Care Team (Late st Contact Info) Description 04/17/1999 Abstract [facility] [address] [place] [address] , Generic Conversion, Social History Tobacco Use [...]
--- OUTSIDE RECORDS SUMMARY | 2024-08-20 14:29 | XMS_ITS | Encounter Summary ---
Author Organization [facility] Address [address] [place] [address]. [place] [address] [place] [address] Care Team Providers Care Drink Box Mechanic Name Role Phone Unavailable Primary Care Provider Unavailabl e Encounter Details Date Type Department Care Team (Late st Contact Info) Description 04/03/1999 Abstract [facility] [address] [place] [address] , Generic Conversion, Social History Tobacco Use [...]
--- OUTSIDE RECORDS SUMMARY | 2024-08-20 14:30 | XMS_ITS | Encounter Summary ---
Author Organization [facility] Address [address] [place] [address]. [place] [address] [place] [address] Care Team Providers Care Weather Teacher Name Role Phone Unavailable Primary Care Provider Unavailabl e Encounter Details Date Type Department Care Team (Late st Contact Info) Description 10/27/1998 Abstract [facility] [address] [place] [address] , Generic Conversion, Social History Tobacco Use [...]
--- OUTSIDE RECORDS SUMMARY | 2024-08-20 14:30 | XMS_ITS | Encounter Summary ---
Author Organization [facility] Address [address] [place] [address]. [place] [address] [place] [address] Care Team Providers Care Mold Sprayer Name Role Phone Unavailable Primary Care Provider Unavailabl e Encounter Details Date Type Department Care Team (Late st Contact Info) Description 06/03/1998 Abstract [facility] [address] [place] [address] , Generic Conversion, Social History Tobacco Use [...]
--- OUTSIDE RECORDS SUMMARY | 2024-08-20 14:30 | XMS_ITS | Encounter Summary ---
Author Organization [facility] Address [address] [place] [address]. [place] [address] [place] [address] Care Team Providers Care Orthopedic Nurse Practitioner Name Role Phone Unavailable Primary Care Provider Unavailabl e Encounter Details Date Type Department Care Team (Late st Contact Info) Description 09/16/1998 Abstract [facility] [address] [place] [address] , Generic Conversion, Social History Tobacco Use [...]
--- OUTSIDE RECORDS SUMMARY | 2024-08-20 14:30 | XMS_ITS | Encounter Summary ---
Author Organization [facility] Address [address] [place] [address]. [place] [address] [place] [address] Care Team Providers Care Php Wordpress Developer Name Role Phone Unavailable Primary Care Provider Unavailabl e Encounter Details Date Type Department Care Team (Late st Contact Info) Description 03/03/1998 Abstract [facility] [address] [place] [address] , Generic Conversion, Social History Tobacco Use [...]
--- OUTSIDE RECORDS SUMMARY | 2024-08-20 14:30 | XMS_ITS | Encounter Summary ---
Author Organization [facility] Address [address] [place] [address]. [place] [address] [place] [address] Care Team Providers Care Drop Press Hand Name Role Phone Unavailable Primary Care Provider Unavailabl e Encounter Details Date Type Department Care Team (Late st Contact Info) Description 05/11/1998 Abstract [facility] [address] [place] [address] , Generic Conversion, Social History Tobacco Use [...]
--- OUTSIDE RECORDS SUMMARY | 2024-08-20 14:30 | XMS_ITS | Encounter Summary ---
Author Organization [facility] Address [address] [place] [address]. [place] [address] [place] [address] Care Team Providers Care Database Administrator Name Role Phone Unavailable Primary Care Provider Unavailabl e Encounter Details Date Type Department Care Team (Late st Contact Info) Description 11/23/1998 Abstract [facility] [address] [place] [address] , Generic Conversion, Social History Tobacco Use [...]
--- OUTSIDE RECORDS SUMMARY | 2024-08-20 14:31 | XMS_ITS | Encounter Summary ---
Author Organization [facility] Address [address] [place] [address]. [place] [address] [place] [address] Care Team Providers Care Car Seat Maker Name Role Phone Unavailable Primary Care Provider Unavailabl e Encounter Details Date Type Department Care Team (Late st Contact Info) Description 10/18/1996 Abstract [facility] [address] [place] [address] , Generic Conversion, Social History Tobacco Use [...]
--- OUTSIDE RECORDS SUMMARY | 2024-08-20 14:31 | XMS_ITS | Encounter Summary ---
Author Organization [facility] Address [address] [place] [address]. [place] [address] [place] [address] Care Team Providers Care Manager Balance Name Role Phone Unavailable Primary Care Provider Unavailabl e Encounter Details Date Type Department Care Team (Late st Contact Info) Description 01/11/1998 Abstract [facility] [address] [place] [address] , Generic Conversion, Social History Tobacco Use [...]
--- OUTSIDE RECORDS SUMMARY | 2024-08-20 14:31 | XMS_ITS | Encounter Summary ---
Author Organization [facility] Address [address] [place] [address]. [place] [address] [place] [address] Care Team Providers Care Traveling Operator Name Role Phone Unavailable Primary Care Provider Unavailabl e Encounter Details Date Type Department Care Team (Late st Contact Info) Description 01/04/1998 Abstract [facility] [address] [place] [address] , Generic Conversion, Social History Tobacco Use [...]
--- OUTSIDE RECORDS SUMMARY | 2024-08-20 14:31 | XMS_ITS | Encounter Summary ---
Author Organization [facility] Address [address] [place] [address]. [place] [address] [place] [address] Care Team Providers Care Toy Parts Former Supervisor Name Role Phone Unavailable Primary Care Provider Unavailabl e Encounter Details Date Type Department Care Team (Late st Contact Info) Description 10/05/1997 Abstract [facility] [address] [place] [address] , Generic Conversion, Social History Tobacco Use [...]
--- OUTSIDE RECORDS SUMMARY | 2024-08-20 14:31 | XMS_ITS | Encounter Summary ---
Author Organization [facility] Address [address] [place] [address]. [place] [address] [place] [address] Care Team Providers Care School Aide Name Role Phone Unavailable Primary Care Provider Unavailabl e Encounter Details Date Type Department Care Team (Late st Contact Info) Description 12/25/1997 Abstract [facility] [address] [place] [address] , Generic Conversion, Social History Tobacco Use [...]
--- OUTSIDE RECORDS SUMMARY | 2024-08-20 14:31 | XMS_ITS | Encounter Summary ---
Author Organization [facility] Address [address] [place] [address]. [place] [address] [place] [address] Care Team Providers Care Disabilities Services Officer Name Role Phone Unavailable Primary Care Provider Unavailabl e Encounter Details Date Type Department Care Team (Late st Contact Info) Description 09/05/1996 Abstract [facility] [address] [place] [address] , Generic Conversion, Social History Tobacco Use [...]
--- OUTSIDE RECORDS SUMMARY | 2024-08-20 14:31 | XMS_ITS | Encounter Summary ---
Author Organization [facility] Address [address] [place] [address]. [place] [address] [place] [address] Care Team Providers Care Driver License Agent Name Role Phone Unavailable Primary Care Provider Unavailabl e Encounter Details Date Type Department Care Team (Late st Contact Info) Description 08/12/1997 Abstract [facility] [address] [place] [address] , Generic Conversion, Social History Tobacco Use [...]
--- OUTSIDE RECORDS SUMMARY | 2024-08-20 14:31 | XMS_ITS | Encounter Summary ---
Author Organization [facility] Address [address] [place] [address]. [place] [address] [place] [address] Care Team Providers Care Events Solutions Consultant Name Role Phone Unavailable Primary Care Provider Unavailabl e Encounter Details Date Type Department Care Team (Late st Contact Info) Description 12/31/1997 Abstract [facility] [address] [place] [address] , Generic Conversion, Social History Tobacco Use [...]
--- OUTSIDE RECORDS SUMMARY | 2024-08-20 14:31 | XMS_ITS | Encounter Summary ---
Author Organization [facility] Address [address] [place] [address]. [place] [address] [place] [address] Care Team Providers Care Pianos [employer]ans Salesperson Name Role Phone Unavailable Primary Care Provider Unavailabl e Encounter Details Date Type Department Care Team (Late st Contact Info) Description 09/29/1997 Abstract [facility] [address] [place] [address] , Generic Conversion, Social History Tobacco Use [...]
--- OUTSIDE RECORDS SUMMARY | 2024-08-20 14:31 | XMS_ITS | Encounter Summary ---
Author Organization [facility] Address [address] [place] [address]. [place] [address] [place] [address] Care Team Providers Care Loan Underwriter Name Role Phone Unavailable Primary Care Provider Unavailabl e Encounter Details Date Type Department Care Team (Late st Contact Info) Description 09/20/1997 Abstract [facility] [address] [place] [address] , Generic Conversion, Social History Tobacco Use [...]
--- OUTSIDE RECORDS SUMMARY | 2024-08-20 14:31 | XMS_ITS | Encounter Summary ---
Author Organization [facility] Address [address] [place] [address]. [place] [address] [place] [address] Care Team Providers Care Licensed Practical Nurse Instructor Name Role Phone Unavailable Primary Care Provider Unavailabl e Encounter Details Date Type Department Care Team (Late st Contact Info) Description 06/16/1997 Abstract SFL CONVERSION [address] [place] [address] , Generic Conversion, Social History Tobacco Use [...]
--- OUTSIDE RECORDS SUMMARY | 2024-08-20 14:31 | XMS_ITS | Encounter Summary ---
Author Organization [facility] Address [address] [place] [address]. [place] [address] [place] [address] Care Team Providers Care Escape Wheel Tooth Cutter Name Role Phone Unavailable Primary Care Provider Unavailabl e Encounter Details Date Type Department Care Team (Late st Contact Info) Description 06/30/1997 Abstract SFL CONVERSION [address] [place] [address] , Generic Conversion, Social History Tobacco Use [...]
--- OUTSIDE RECORDS SUMMARY | 2024-08-20 14:31 | XMS_ITS | Encounter Summary ---
Author Organization [facility] Address [address] [place] [address]. [place] [address] [place] [address] Care Team Providers Care Funeral Planning Counselor Name Role Phone Unavailable Primary Care Provider Unavailabl e Encounter Details Date Type Department Care Team (Late st Contact Info) Description 01/20/1998 Abstract SFL CONVERSION [address] [place] [address] , Generic Conversion, Social History Tobacco Use [...]
--- OUTSIDE RECORDS SUMMARY | 2024-08-20 14:31 | XMS_ITS | Encounter Summary ---
Author Organization [facility] Address [address] [place] [address]. [place] [address] [place] [address] Care Team Providers Care Multi Slide Machine Tender Name Role Phone Unavailable Primary Care Provider Unavailabl e Encounter Details Date Type Department Care Team (Late st Contact Info) Description 05/17/1997 Abstract SFL CONVERSION [address] [place] [address] , Generic Conversion, Social History Tobacco Use [...]
--- OUTSIDE RECORDS SUMMARY | 2024-08-20 14:31 | XMS_ITS | Encounter Summary ---
Author Organization [facility] Address [address] [place] [address]. [place] [address] [place] [address] Care Team Providers Care Blower Insulator Name Role Phone Unavailable Primary Care Provider Unavailabl e Encounter Details Date Type Department Care Team (Late st Contact Info) Description 10/20/1994 Abstract SFL CONVERSION [address] [place] [address] , Generic Conversion, Social History Tobacco Use [...]
--- OUTSIDE RECORDS SUMMARY | 2024-08-20 14:31 | XMS_ITS | Encounter Summary ---
Author Organization [facility] Address [address] [place] [address]. [place] [address] [place] [address] Care Team Providers Care Shipbuilding Draftsperson Name Role Phone Unavailable Primary Care Provider Unavailabl e Encounter Details Date Type Department Care Team (Late st Contact Info) Description 01/30/1997 Abstract SFL CONVERSION [address] [place] [address] , Generic Conversion, Social History Tobacco Use [...]
--- OUTSIDE RECORDS SUMMARY | 2024-08-20 14:31 | XMS_ITS | Encounter Summary ---
Author Organization [facility] Address [address] [place] [address]. [place] [address] [place] [address] Care Team Providers Care Senior Payroll Specialist Name Role Phone Unavailable Primary Care Provider Unavailabl e Encounter Details Date Type Department Care Team (Late st Contact Info) Description 11/30/1996 Abstract SFL CONVERSION [address] [place] [address] , Generic Conversion, Social History Tobacco Use [...]
--- OUTSIDE RECORDS SUMMARY | 2024-08-20 14:31 | XMS_ITS | Encounter Summary ---
Author Organization [facility] Address [address] [place] [address]. [place] [address] [place] [address] Care Team Providers Care Computer Discovery Teacher Name Role Phone Unavailable Primary Care Provider Unavailabl e Encounter Details Date Type Department Care Team (Late st Contact Info) Description 07/20/1997 Abstract SFL CONVERSION [address] [place] [address] , Generic Conversion, Social History Tobacco Use [...]
--- OUTSIDE RECORDS SUMMARY | 2024-08-20 14:31 | XMS_ITS | Encounter Summary ---
Author Organization [facility] Address [address] [place] [address]. [place] [address] [place] [address] Care Team Providers Care Soda Jerker Name Role Phone Unavailable Primary Care Provider Unavailabl e Encounter Details Date Type Department Care Team (Late st Contact Info) Description 06/02/1992 Abstract SJS CONVERSION [address] [place] [address] , Generic ConversionMD Social History Tobacco Use [...]
--- OUTSIDE RECORDS SUMMARY | 2024-08-20 14:31 | XMS_ITS | Encounter Summary ---
Author Organization [facility] Address [address] [place] [address]. [place] [address] [place] [address] Care Team Providers Care Plush Dresser Name Role Phone Unavailable Primary Care Provider Unavailabl e Encounter Details Date Type Department Care Team (Late st Contact Info) Description 09/09/1997 Abstract SFL CONVERSION [address] [place] [address] , Generic Conversion, Social History Tobacco Use [...]
--- OUTSIDE RECORDS SUMMARY | 2024-08-20 14:31 | XMS_ITS | Encounter Summary ---
Author Organization [facility] Address [address] [place] [address]. [place] [address] [place] [address] Care Team Providers Care Nurse Research Name Role Phone Unavailable Primary Care Provider Unavailabl e Encounter Details Date Type Department Care Team (Late st Contact Info) Description 01/26/1997 Abstract SFL CONVERSION [address] [place] [address] , Generic Conversion, Social History Tobacco Use [...]
--- OUTSIDE RECORDS SUMMARY | 2024-08-20 14:31 | XMS_ITS | Encounter Summary ---
Author Organization [facility] Address [address] [place] [address]. [place] [address] [place] [address] Care Team Providers Care City Superintendent Name Role Phone Unavailable Primary Care Provider Unavailabl e Encounter Details Date Type Department Care Team (Late st Contact Info) Description 10/02/1997 Abstract SFL CONVERSION [address] [place] [address] , Generic Conversion, Social History Tobacco Use [...]
--- OUTSIDE RECORDS SUMMARY | 2024-08-20 14:31 | XMS_ITS | Encounter Summary ---
Author Organization [facility] Address [address] [place] [address]. [place] [address] [place] [address] Care Team Providers Care Global Recruiter Name Role Phone Unavailable Primary Care Provider Unavailabl e Encounter Details Date Type Department Care Team (Late st Contact Info) Description 12/06/1997 Abstract SFL CONVERSION [address] [place] [address] , Generic Conversion, Social History Tobacco Use [...]
--- OUTSIDE RECORDS SUMMARY | 2024-08-20 14:31 | XMS_ITS | Encounter Summary ---
Author Organization [facility] Address [address] [place] [address]. [place] [address] [place] [address] Care Team Providers Care Any Commodity Buyer Name Role Phone Unavailable Primary Care Provider Unavailabl e Encounter Details Date Type Department Care Team (Late st Contact Info) Description 08/29/1997 Abstract SFL CONVERSION [address] [place] [address] , Generic Conversion, Social History Tobacco Use [...]
--- OUTSIDE RECORDS SUMMARY | 2024-08-20 14:31 | XMS_ITS | Encounter Summary ---
Author Organization [facility] Address [address] [place] [address]. [place] [address] [place] [address] Care Team Providers Care Trailer Driver Name Role Phone Unavailable Primary Care Provider Unavailabl e Encounter Details Date Type Department Care Team (Late st Contact Info) Description 06/08/1997 Abstract SFL CONVERSION [address] [place] [address] , Generic Conversion, Social History Tobacco Use [...]
--- OUTSIDE RECORDS SUMMARY | 2024-08-20 14:31 | XMS_ITS | Encounter Summary ---
Author Organization [facility] Address [address] [place] [address]. [place] [address] [place] [address] Care Team Providers Care Cnmt Name Role Phone Unavailable Primary Care Provider Unavailabl e Encounter Details Date Type Department Care Team (Late st Contact Info) Description 03/09/1997 Abstract SFL CONVERSION [address] [place] [address] , Generic Conversion, Social History Tobacco Use [...]
--- OUTSIDE RECORDS SUMMARY | 2024-08-20 14:31 | XMS_ITS | Encounter Summary ---
Author Organization [facility] Address [address] [place] [address]. [place] [address] [place] [address] Care Team Providers Care Air Quality Chemist Name Role Phone Unavailable Primary Care Provider Unavailabl e Encounter Details Date Type Department Care Team (Late st Contact Info) Description 01/10/1998 Abstract SFL CONVERSION [address] [place] [address] , Generic Conversion, Social History Tobacco Use [...]
--- OUTSIDE RECORDS SUMMARY | 2024-08-20 14:31 | XMS_ITS | Encounter Summary ---
Author Organization [facility] Address [address] [place] [address]. [place] [address] [place] [address] Care Team Providers Care Data Entry Operator Name Role Phone Unavailable Primary Care Provider Unavailabl e Encounter Details Date Type Department Care Team (Late st Contact Info) Description 10/06/1997 Abstract SFL CONVERSION [address] [place] [address] , Generic Conversion, Social History Tobacco Use [...]
--- OUTSIDE RECORDS SUMMARY | 2024-08-20 14:31 | XMS_ITS | Encounter Summary ---
Author Organization [facility] Address [address] [place] [address]. [place] [address] [place] [address] Care Team Providers Care Mother Tester Name Role Phone Unavailable Primary Care Provider Unavailabl e Encounter Details Date Type Department Care Team (Late st Contact Info) Description 11/05/1994 Abstract SFL CONVERSION [address] [place] [address] , Generic Conversion, Social History Tobacco Use [...]
--- OUTSIDE RECORDS SUMMARY | 2024-08-20 14:31 | XMS_ITS | Encounter Summary ---
Author Organization [facility] Address [address] [place] [address]. [place] [address] [place] [address] Care Team Providers Care Contract Designer Name Role Phone Unavailable Primary Care Provider Unavailabl e Encounter Details Date Type Department Care Team (Late st Contact Info) Description 05/26/1992 Abstract SJS CONVERSION [address] [place] [address] , Generic ConversionMD Social History Tobacco Use [...]
--- OUTSIDE RECORDS SUMMARY | 2024-08-20 14:31 | XMS_ITS | Encounter Summary ---
Author Organization [facility] Address [address] [place] [address]. [place] [address] [place] [address] Care Team Providers Care Sheep Sticker Name Role Phone Unavailable Primary Care Provider Unavailabl e Encounter Details Date Type Department Care Team (Late st Contact Info) Description 02/19/1998 Abstract SFL CONVERSION [address] [place] [address] , Generic Conversion, Social History Tobacco Use [...]
--- OUTSIDE RECORDS SUMMARY | 2024-08-20 14:31 | XMS_ITS | Encounter Summary ---
Author Organization [facility] Address [address] [place] [address]. [place] [address] [place] [address] Care Team Providers Care Interior Specialist Name Role Phone Unavailable Primary Care Provider Unavailabl e Encounter Details Date Type Department Care Team (Late st Contact Info) Description 02/09/1998 Abstract SFL CONVERSION [address] [place] [address] , Generic Conversion, Social History Tobacco Use [...]
--- OUTSIDE RECORDS SUMMARY | 2024-08-20 14:31 | XMS_ITS | Encounter Summary ---
Author Organization [facility] Address [address] [place] [address]. [place] [address] [place] [address] Care Team Providers Care Inseam Trimming Machine Operator Name Role Phone Unavailable Primary Care Provider Unavailabl e Encounter Details Date Type Department Care Team (Late st Contact Info) Description 05/03/1997 Abstract SFL CONVERSION [address] [place] [address] , Generic Conversion, Social History Tobacco Use [...]
--- OUTSIDE RECORDS SUMMARY | 2024-08-20 14:31 | XMS_ITS | Encounter Summary ---
Author Organization [facility] Address [address] [place] [address]. [place] [address] [place] [address] Care Team Providers Care Shank Piece Tacker Name Role Phone Unavailable Primary Care Provider Unavailabl e Encounter Details Date Type Department Care Team (Late st Contact Info) Description 05/22/1997 Abstract SFL CONVERSION [address] [place] [address] , Generic Conversion, Social History Tobacco Use [...]
--- OUTSIDE RECORDS SUMMARY | 2024-08-20 14:31 | XMS_ITS | Encounter Summary ---
Author Organization [facility] Address [address] [place] [address]. [place] [address] [place] [address] Care Team Providers Care Electronic Scale Tester Name Role Phone Unavailable Primary Care Provider Unavailabl e Encounter Details Date Type Department Care Team (Late st Contact Info) Description 08/13/1997 Abstract SFL CONVERSION [address] [place] [address] , Generic Conversion, Social History Tobacco Use [...]
--- OUTSIDE RECORDS SUMMARY | 2024-08-20 14:52 | XMS_ITS | Continuity of Care Document ---
Author Organization [facility] Address [address] [place] [address] [place] [address] Phone Care Team Providers Care Marking Clerk Name Role Phone Adriana Lim Unavailable Unavailable Procedures Procedure Date Office/outpatient Visit, Est Office/outpatient Visit, Est Office/outpatient Visit, Est Office Consultation Advance Directives Directive Yes / No Effective Date File Name No Information Encounters Encounter Description Practice Location Reason(s) For Visit Diagnoses Date Provider Providers Copied on Encounter Office/outpati ent Visit, [facility], [address] [place] [address] [address], [place], [place], [id number], tel:[phone] [facility] No Information Feb-2 4-200 9 Carina Bills [address] [facility] , [address], [place], [place], [facility], . tel:[phone] Office/outpati ent Visit, [facility], [address] [place] [address] [address], [place], [place], [id number], tel:[phone] [facility] No Information Feb-1 0-200 9 Carina Bills [address] , [address], [place], [facility], . tel:[phone] Office/outpati ent Visit, [facility], [address] [place] [address] [address], [place], [place], [id number], tel:[phone] [facility] No Information Feb-0 3-200 9 Carina Wright. [address] , [address], [place], [address], [place]. tel:[phone] Office Consultation [facility], [address], [place], [place], [id number], [place] tel:[phone] [facility] No Information 9 Carina Wright. [address] [facility] , [address], [place], [address], [place]. tel:[phone] Referring Provider: Jeff Grayson, [address] [place], [address]. tel:[phone] Family History Family Member Type Diagnosis Age At Onset No Information Payers Payer name Insurance type Covered alliance party ID Authoriza tiash(s) [place] [id number] Social History Type Description Quantity Date Captured [...]
--- OUTSIDE RECORDS SUMMARY | 2024-08-20 14:52 | XMS_ITS | Continuity of Care Document ---
Author Organization [facility] Address [address] [facility] [address] [place] [address] Phone Care Team Providers Care Ranger Aide Name Role Phone Junior Menard MD Unavailable [...] Providers Copied on Encounter [facility], [address], [facility], tel:[phone] [facility] No Information [address]. [address] [place], [place], [id number] . tel: [phone] OFFICE/OUTPA TIENT VISIT NEW [facility], [address], [facility], tel:[phone] [facility] Body Mass Index 29.0-29.9, adultDietary surveillance and counselingHyperte nsion, UnspecifiedLumbar RadiculopathyOthe r unspecified back disorder [address]. [address] [place], [place], [id number] . tel: [phone] Family History Family Member Type Diagnosis Age [...]
== END 2024-08-16 05:10 | disposition short-term general hospital (02) ==
LOC: ANHED 03:46
PROVIDERS: Emergency Provider Student in an Organized Health Care Education/Training Program; PCP Family Medicine
DX: T79.4XXA Traumatic shock, initial encounter (principal); S19.9XXA Unspecified injury of neck, initial encounter; R51.9 Headache, unspecified; S40.812A Abrasion of left upper arm, initial encounter; S40.811A Abrasion of right upper arm, initial encounter; S80.812A Abrasion, left lower leg, initial encounter; S80.811A Abrasion, right lower leg, initial encounter; Z11.52 Encounter for screening for COVID-19; I10 Essential (primary) hypertension; D68.9 Coagulation defect, unspecified; M81.0 Age-related osteoporosis without current pathological fracture; G25.81 Restless legs syndrome; Z87.01 Personal history of pneumonia (recurrent); Z87.891 Personal history of nicotine dependence; Z79.899 Other long term (current) drug therapy; W10.9XXA Fall (on) (from) unspecified stairs and steps, initial encounter; K80.20 Calculus of gallbladder without cholecystitis without obstruction; R93.3 Abnormal findings on diagnostic imaging of other parts of digestive tract; K59.00 Constipation, unspecified; J43.9 Emphysema, unspecified
CPT/HCPCS: 36415; 70450; 71045; 71260; 72125; 72170; 74177; 80053; 85025; 85610; 85730; 87637; 93005; 96365; 96372; 96375; 96376; 99285; C1751; J0171; J3010; J7030; L0140; Q9967

== ENCOUNTER 2024-09-04 14:35 | Outpatient (CLI) | payer MEDICARE, SELFPAY ==
--- NOTE | ~2024-09-04 | XR_ITS ---
CHEST RADIOGRAPH, PA AND LATERAL CLINICAL HISTORY: SOB,COUGH-PRODUCTIVE,X6DAYS . COMPARISON: 08/16/2024 TECHNIQUE: PA and lateral views of the chest. FINDINGS The cardiomediastinal silhouette is unremarkable. Calcified granuloma within the right mid to lower lung field. Evaluation of the bilateral pulmonary alessandra is limited secondary to patient rotation (towards their le ft). The lungs are otherwise clear. IMPRESSION: No focal infiltrate or effusion. Reviewed, dictated and finalized at location A. ESSIONAL SERVICES SPECIALIST
[2024-09-04 14:58] LABS: Base Excess ABG -3.7 mmol/L (0-2); HCO3 ABG 20.7 mmol/L (23-29); Oxygen Saturation ABG 92.5 % (95-97); Oxyhemoglobin 88.4 % (94-100); PO2 ABG 66.5 mmHg (75-85); pH ABG 7.38 (7.35-7.45)
[2024-09-04 14:59] LABS: Basophils Absolute Auto 0.04 K/mm3 (0.00-0.10); Basophils Percent Auto 0.4 % (0.0-1.0); Eosinophils Absolute Auto 0.09 K/mm3 (0.02-0.50); Hematocrit 42.2 % (37.0-46.0); Immature Granulocyte Absolute 0.05 K/mm3 (0.00-0.00); Immature Granulocyte Percent A 0.5 % (0.0-0.0); Lymphocytes Absolute Auto 1.41 K/mm3 (1.10-4.50); Mean Corpuscular HGB Conc 33.2 g/dL (32-36); Mean Corpuscular Hemoglobin 32.9 pg (27.0-31.0); Mean Corpuscular Volume 99.1 fL (78.0-102.0); Mean Platelet Volume 10.3 fl (8.7-11.0); Monocytes Absolute Auto 1.25 K/mm3 (0.10-0.90); Monocytes Percent Auto 13.3 % (2.0-11.0); Neutrophils Absolute Auto 6.56 K/mm3 (1.70-7.20); Neutrophils Percent Auto 69.8 % (50.0-70.0); Platelet Count Result 328 K/mm3 (150-420); Red Blood Count 4.26 M/mm3 (4.70-6.10); White Blood Count 9.4 K/mm3 (4.8-10.8)
[2024-09-04 15:00] LABS: Device ROOM AIR; Modified Allen's Test Pass; Site Drawn LEFT RADIAL
[2024-09-04 15:37] LABS: D Dimer 4.94 mg/L (0.19-0.50)
[2024-09-04 15:58] LABS: Alanine Aminotransferase 18 U/L (16-63); Alkaline Phosphatase 74 U/L (46-116); Anion Gap 11 mmol/L (4-12); Aspartate Amino Transferase 33 U/L (15-37); Bilirubin,Total 0.6 mg/dL (0.00-1.00); Blood Urea Nitrogen 20 mg/dL (7-18); Calcium 9.2 mg/dL (8.5-10.1); Carbon Dioxide 26 mmol/L (21-32); Chloride 103 mmol/L (98-108); Estimated Glomerular Filt Rate 57; Glucose 128 mg/dL (70-99); NT Pro B Type Natriuretic Pept 43 pg/mL (0-125); Osmolality Calculated 294 mOsm/kg (285-295); Potassium 3.8 mmol/L (3.5-5.1); Sodium 140 mmol/L (136-145); Total Protein 7.5 g/dL (6.4-8.2); Troponin I 41.3 ng/L (0.00-60.4)
== END 2024-09-04 14:36 | disposition home or self-care (01) ==
PROVIDERS: PCP Family Medicine; Visit Provider Nurse Practitioner Family
DX: R06.02 Shortness of breath (principal)
CPT/HCPCS: 36415; 36600; 71046; 80053; 82805; 83880; 84484; 85025; 85380

== ENCOUNTER 2024-09-04 17:30 | Emergency (ER) | payer MEDICARE, SELFPAY ==
--- NOTE | ~2024-09-04 | CT_ITS ---
EXAMINATION: CTA chest PE protocol DATE: 09/04/2024 18:23 REFERENCE TEST CLERK INDICATION: Shortness of breath with elevated d-dimer TECHNIQUE: Computed tomographic angiography (CTA) of the chest was performed with 100 mL Omnipaque-35 0 intravenous contrast. The dose-length product was 370.71 mGy-cm. Maximum intensity projection 3D-re constructions of the aorta and other arteries were constructed by the technologist on a separate work station. COMPARISON: 08/16/2024 FINDINGS: Redemonstration of mediastinal and paraesophageal lymphadenopathy when compared with previous study. The lymph nodes are not pathologically enlarged but are morphologically suspicious without fatty alessandra . The largest lymph node is within the subcarinal position measuring 13.4 mm in short axis dimension. Significant mural thickening within the distal esophagus, also unchanged. The previously identified left basilar consolidation has improved since prior study. Interstitial thickening, cylindrical bronchiectasis and a tree-in-bud parenchymal pattern is identifi ed (an interval change from prior) for which hypersensitivity pneumonitis is suspected. The thoracic aorta demonstrates calcified atherosclerotic disease with ulcerated plaques along its co urse, without aneurysmal dilatation or dissection. Within the upper abdomen: Well-circumscribed focus of decreased attenuation within the spleen measuring 15 mm, unchanged from p rior. The gallbladder is distended, with layering sludge/small stones (unchanged from prior) Diffuse bony demineralization, far advanced for patient of this age with significant degenerative dis ease in the thoracic spine and sternum with a vacuum phenomena and osteophyte formation. Fixation hardware within the lumbar spine, causing a significant amount of streak artifact, limiting evaluation of the lower cuts of the abdomen. IMPRESSION: No pulmonary embolus. No thoracic aortic dissection or aneurysmal dilatation. Persistent mural thickening within the distal esophagus with morphologically suspicious paraesophagea l and mediastinal lymph nodes, as detailed above. Direct visualization of the esophagus is recommended (if not already performed). Findings within the bilateral lung henning suggesting hypersensitivity pneumonitis. Reviewed, dictated and finalized at location A. RENCE TEST CLERK IMPRESSION: No pulmonary embolus. No thoracic aortic dissection or aneurysmal dilatation. Persistent mural thickening within the distal esophagus with morphologically elise spicious paraesophageal and mediastinal lymph nodes, as detailed above. Direct visualization of the esophagus is recommended (if not already performed) . Findings within the bilateral lung henning suggesting hypersensitivity pneumonit is.
[2024-09-04 17:36] VITALS: BP 104/71; PULSE 87; RESP 18; TEMP 36.7; O2SAT 95
--- NOTE | 2024-09-04 17:47 | ED.SOB ---
HPI - SOB/Dyspnea General Chief Complaint: Recheck/Abnormal Lab/Rx Stated Complaint: ABNORMAL LABS Source: patient Mode of arrival: ambulatory Limitations: no limitations History of Present Illness HPI Narrative: Patient is a 69-year-old male here from the primary medical office today for further workup. He went to the doctor for a cough and congestion and they did a workup to include labs which had an elevated D-dimer. He is not short of breath or having chest pain at this time in the emergency room. The primary doctor called me and asked if we can do the CTA of the chest to finish ruling out what they were working up as an outpatient. We will go ahead and get the CTA of the chest with elevated dimer. Patient wishes to have antibiotics if this is negative to go home with based on the original reason he came in to the primary doctor. Patient had a PE in 2001. MD elicited complaint: cough Pertinent past history: other ( PE 2001) Onset (ago): day(s) (3) Context: recent illness ( current cough and congestion) Timing: constant Severity: mild Exacerbating factors: nothing Relieving factors: nothing Known history of: PE Associated symptoms: cough and chest congestion Treatment prior to arrival: none Related Data Home oxygen amount: none Home Medications ?Medication ?Instructions ?Recorded ?Confirmed ?Last Taken ?Type cyclobenzaprine 10 mg tablet 10 mg PO BID PRN Back Pain 05/30/22 09/04/24 05/07/24 History gabapentin 300 mg capsule 300 mg PO BID 02/05/24 09/04/24 05/07/24 History morphine 30 mg immediate release 30 mg PO Q8H PRN Pain 02/05/24 09/04/24 05/07/24 History tablet acetaminophen 300 mg-codeine 60 mg 1 tablet PO TID PRN Pain 04/13/24 09/04/24 05/07/24 History tablet Allergies Allergy/AdvReac Type Severity Reaction Status Date / Time NSAIDS (Non-Steroidal AdvReac Mild Abdominal Verified 09/04/24 14:14 Anti-Inflamma Pain ibuprofen AdvReac Sick Verified 09/04/24 14:14 feeling prednisone AdvReac Sick Verified 09/04/24 14:14 feeling Review of Systems Review of Systems: All systems reviewed & are unremarkable except as noted in HPI and below Constitutional: Constitutional: Reports no additional constitutional complaints Eyes: Eyes: Reports no additional eye complaints ENT: Reports system reviewed and no additional complaints, except as documented Cardiovascular: Cardiovascular: Reports no additional cardiovascular complaints Respiratory: Respiratory: Reports no additional respiratory complaints Gastrointestinal: Gastrointestinal: Reports no additional gastrointestinal complaints Genitourinary: Genitourinary: Reports no additional male genitourinary complaints Musculoskeletal: Musculoskeletal: Reports no additional musculoskeletal complaints Integumentary/Breasts: Skin/Breast: Reports system reviewed and no additional complaints, except as docu Neurologic: Reports system reviewed and no additional complaints, except as documented Psychiatric: Psychiatric: Reports no additional psychiatric complaints Endocrine: Endocrine: Reports no additional endocrine complaints Hematologic/Lymphatic: Hematologic/Lymphatic: Reports no additional hematologic/lymphatic complaints Allergic/Immunologic: Allergic/Immunologic: Reports no additional allergic/immunologic complaints PMFSH Past Medical History Medical History Bleeding disorder Lumbar spondylosis Pericardial effusion Pneumonia Restless leg syndrome Osteoporosis Hypertension Hepatitis Headache Cancer Arthritis Anxiety and depression Chronic back pain Surgical History Surgical History Status post lumbar surgery Previous back surgery Family History Family History Mother Cancer Diabetes mellitus Sibling Cancer Social History Social History Smoking packs per day: 0.25 Smoking cigarettes per day: 5.0 Years smoked: 53 Smoking pack-years: 13.25 Smoking status: Current every day smoker Tobacco type: cigarettes Smoking end date: 07/09/22 Alcohol intake: former Substance use: current Substance use type: does not use Lack of Transportation: No Lack of Food: Sometimes True Current Housing: I Have Housing Concerned About Future Housing: No Difficulty Paying Gas/Electric Bills: No Difficulty Paying for Meds: No Currently Unemployed: No Education: High School Diploma/GED Difficulty w/ Childcare or Family Care: No Living arrangements: with family Spiritual care concerns: No Exam Const: General: healthy appearing Nutritional Appearance: well nourished Orientation/consciousness: patient oriented x3 Limitations: no limitations HENMT: Head: normal to inspection Ears: external ears normal Face/Nose/Sinus: Normal external nose present Eyes: Conjunctivae: conjunctivae normal Pupils: Equal, round and reactive pupils present EOM: EOMs intact bilaterally Neck: Neck: normal visual inspection Chest: Chest palpation & inspection: normal inspection of the chest Resp: Effort & Inspection: normal respiratory effort and not labored Auscultation: clear to auscultation bilaterally and no crackles Cardio: Rate: regular rate Rhythm: regular rhythm Heart sounds: no murmurs GI: Inspection: non-distended GI Palp: Yes Soft to palpation and No Tenderness to palpation present (GI) Auscultation: normal bowel sounds : General: Yes bladder normal to palpation Back/Spine/Pelvis: Back: no CVA tenderness Skin: General skin exam: normal color Rashes: no rashes Wounds: no wounds Neuro: General: patient oriented x3 Cranial nerves: Yes Nystagmus not present Speech: normal speech Gait exam (Neuro): Normal gait present Extrem: General: normal to inspection Psych: Mental Status: mental status grossly normal Affect: normal affect Attitude: cooperative Course Vital Signs Vital signs: Vital Signs Temperature 36.7 C 09/04/24 17:36 Pulse Rate 87 09/04/24 17:36 Respiratory Rate 18 09/04/24 17:36 Blood Pressure 104/71 09/04/24 17:36 Pulse Oximetry 95 09/04/24 17:36 Oxygen Delivery Room Air 09/04/24 17:36 Temperature 36.7 C 09/04/24 17:36 Pulse Rate 87 09/04/24 17:36 Respiratory Rate 18 09/04/24 17:36 Blood Pressure 104/71 09/04/24 17:36 Pulse Oximetry 95 09/04/24 17:36 Oxygen Delivery Room Air 09/04/24 17:36 MDM - SOB/Dyspnea MDM Narrative Medical decision making narrative: patient is a 69-year-old male with an outpatient workup today to include an elevated D-dimer. He was sent to the ER for further evaluation of the elevated D-dimer. Will get a CTA of the chest. I reviewed all the studies done today which includes a CBC and a CMP. We will do azithromycin for bronchitis/pneumonitis. He will need EGD to look at the esophagitis. He is on Protonix already at this time. We will not do steroids due to the allergy at this time. Lab Data Attestation: I reviewed the patient's lab results. Lab results narrative: I reviewed all recorded labs done today. Imaging Data Attestation: I personally reviewed and interpreted this imaging study as follows: Radiologist's impression: Chest x-ray done today is pending results CTA of the chest shows IMPRESSION: No pulmonary embolus. No thoracic aortic dissection or aneurysmal dilatation. Persistent mural thickening within the distal esophagus with morphologically suspicious paraesophageal and mediastinal lymph nodes, as detailed above. Direct visualization of the esophagus is recommended (if not already performed). Findings within the bilateral lung henning suggesting hypersensitivity pneumonitis. Discharge Plan Discharge Clinical Impression: Pneumonitis, Esophagitis, Bronchitis Patient Disposition: Home, Self-Care Condition: Stable Instructions: Antibiotic Form, Pneumonitis (ED) Additional Instructions: Please follow-up with the primary doctor in the next week. You will need GI specialist to do an upper endoscopy to look further into your inflamed esophagus. You were already on Protonix daily. Patient Language: Mauritanian Prescriptions: New azithromycin 500 mg tablet 500 mg PO DAILY 5 Days Qty: 5 0RF No Action pantoprazole 40 mg tablet,delayed release (DR/EC) 40 mg PO QAM Qty: 30 3RF cyclobenzaprine 10 mg tablet 10 mg PO BID PRN (Reason: Back Pain) duloxetine 60 mg capsule,delayed release(DR/EC) 60 mg PO DAILY Qty: 90 3RF morphine 30 mg tablet 30 mg PO Q8H PRN (Reason: Pain) gabapentin 300 mg capsule 300 mg PO BID acetaminophen-codeine 300-60 mg tablet 1 tablet PO TID PRN (Reason: Pain) trazodone 100 mg tablet See Rx Instructions .ROUTE .COMPLEX Qty: 90 0RF Dose Instruction: 100 MG ORALLY EVERY DAY AT BEDTIME NEEDED FOR INSOMNIA Rx Instructions: 100 MG ORALLY EVERY DAY AT BEDTIME NEEDED FOR INSOMNIA levothyroxine 50 mcg tablet See Rx Instructions .ROUTE .COMPLEX Qty: 90 0RF Dose Instruction: TAKE 1 TABLET BY MOUTH EVERY DAY Rx Instructions: TAKE 1 TABLET BY MOUTH EVERY DAY lisinopril 20 mg tablet See Rx Instructions .ROUTE .COMPLEX Qty: 90 2RF Dose Instruction: TAKE 1 TABLET BY MOUTH EVERY DAY Rx Instructions: TAKE 1 TABLET BY MOUTH EVERY DAY Follow-up/Referrals: Dalton Lebron APRN [Primary Care Provider] - Time of Disposition: 18:47
== END 2024-09-04 18:52 | disposition home or self-care (01) ==
PROVIDERS: Emergency Provider Emergency Medicine; PCP Nurse Practitioner Family
DX: J98.4 Other disorders of lung (principal); K20.90 Esophagitis, unspecified without bleeding; J40 Bronchitis, not specified as acute or chronic; Z87.891 Personal history of nicotine dependence; Z86.711 Personal history of pulmonary embolism
CPT/HCPCS: 71275; 99284; Q9967

== ENCOUNTER 2024-12-19 16:13 | Emergency (ER) | payer MEDICARE, SELFPAY ==
--- NOTE | ~2024-12-19 | XR_ITS ---
3 VIEWS LUMBAR SPINE Ordering provider: Magen Amin MD History: . Fall, Lt. hip/ low back pain . Comparison: July 16, 2024 FINDINGS: VERTEBRAL BODIES:Old compression fracture of L3. No visible acute fracture or subluxation. Postopera tive changes at the level of L3-L4. Levoscoliosis. Degenerative changes of the spine. DISK SPACES: Narrowing of the disc L2-3, L3-L4, L4-L5 and L5-S1. SOFT TISSUES: Normal. IMPRESSION: No acute osseous abnormality lumbar spine. Postoperative changes. Multilevel degenerative disc disease. Levoscoliosis. Reviewed, dictated and finalized at location A.
--- NOTE | ~2024-12-19 | XR_ITS ---
XR hip LT 2V w AP pelvis Ordering provider: Magen Amin MD History: . Fall, Lt. hip/ low back pain . Comparison: August 16, 2024 FINDINGS: BONES: Fracture of the left femoral neck is noted. HIP JOINT SPACES: Bilateral severe osteoarthritic changes. SACROILIAC JOINT SPACES/LUMBAR SPINE: The sacroiliac joint spaces are normal. Mild degenerative sanchez es of the visualized lower lumbar spine. Postoperative changes in the lower lumbar area. PUBIC SYMPHYSIS: Normal. SOFT TISSUES: Normal. IMPRESSION: Fracture of the left femoral neck. Reviewed, dictated and finalized at location A.
[2024-12-19 16:13] VITALS: BP 139/79; PULSE 109; RESP 18; TEMP 36.2; O2SAT 94
--- OUTSIDE RECORDS SUMMARY | 2024-12-19 16:15 | XMS_ITS | Encounter Summary ---
Author Organization [facility] Address [facility] [place] [address] Care Team Providers Care Crop And Soil Scientist Name Role Phone Channing Panchal MD Primary Care Provider [phone] Mark Carmichael DO Primary Care Provider [phone] Encounter Details Date Type Department Care Team (Late st Contact Info) Description 02/07/2019 Abstract SFL CONVERSION [address] [place] [address] , Generic Conversion, Social History Tobacco Use [...] Rule Out 07/25/2022 07/25/2022 08/01/2022 12:32 AM FLUORESCENT SOLUTION MIXER documented as of this encounter Care Teams Crop And Soil Scientist Relationship Specialty Start Date End Date Channing Pnachal MD [address] [place] [address] PCP - General INTERNAL MEDICINE 08/17/21 07/21/22 Mark Carmichael DO [address] [place] [address] PCP - General FAMILY PRACTICE 07/22/22 documented as of this encounter
--- OUTSIDE RECORDS SUMMARY | 2024-12-19 16:15 | XMS_ITS | Clinical Summary ---
Author Organization [facility] Address [address] [place] [address] Care Team Providers Care Safety Tech Name Role Phone Melchorleeanne Markelvia BACK Primary Care Provider [phone] [facility],non-owned Affiliates and Associated Physician Practices is amultiple site organization consisting of ambulatory clinics and hospital sitesin [place], [place], [place] and [place]. This disclosure is being madepursuant to the Care Everywhere program and may not contain all information available regarding this patient. Last updated 18.[facility] Allergies Active Allergy Reactions Criticality Noted Date Comments Nsaids Unknown,GI Discomfor t,Shortness of Breath High 02/10/2016 Prednisone Unknown,Shortness of Breath High 07/25/20 22 Medications * Be aware that medications may not be up to date on this document. Alwaysverify current medications with the patient. cyclobenzaprine (Flexeril) 10 MG tablet Take 1 (one) tablet by mouth 2 times daily as needed Active gabapentin (Neurontin) 300 MG capsule Take 1 (one) capsule by mouth 2 times daily Active levothyroxine (Synthroid) 50 MCG tablet Take 1 (one) tablet by mouth once daily 08/04/2024 Active lisinopril (Prinivil; Zestril) 20 MG tablet Take 1 (one) tablet by mouth once daily 08/06/2024 Active acetaminophen-c odeine (Tylenol #4) 300-60 MG tablet Take 1 [...] UTI (urinary tract infection) 08/16/2024 08/16/2024 Immunizations Immunization Administration Dates Next Due TDAP (7yrs+) 08/16/2024(Deferred: [...] and heating? Not hard at all 08/20/2024 [facility] - Occupational Stress [...] any time in the past 12 m [facility], were you homeless or living in a usp (including now)? No 08/20/2024 Sex and Gender Information Value Date Recorded Sex Assigned at Not on file Legal Sex Male 4:10 PM TAXATION ECONOMIST Gender Identity Not on file Sexual Orientation Not on file Last Filed Vital Signs Vital Sign Reading Time Taken Comments Blood Pressure 164/85 08/20/2024 11:05 AM TAXATION ECONOMIST Pulse 60 08/20/2024 11:05 AM TAXATION ECONOMIST Temperature 36.8 C (98.3 F) 08/20/2024 11:05 AM TAXATION ECONOMIST Respiratory Rate 20 08/20/2024 11:05 AM TAXATION ECONOMIST Oxygen Saturation 97% 08/20/2024 11:05 AM TAXATION ECONOMIST Inhaled Oxygen Concentration - - Weight 74.5 kg (164 lb 3.2 oz) 08/18/2024 4:00 A M TAXATION ECONOMIST Height 182.9 cm (6') 08/16/2024 5:26 AM TAXATION ECONOMIST Body Mass Index 22.27 08/16/2024 5:26 AM TAXATION ECONOMIST Plan of Treatment Upcoming Encounters Date Type Department Care Team (Late st Contact Info) Description 01/19/2025 11:00 AM CDT Office Visit [facility] - GI [address] [facility], [facility] [id number] Raymond Miller MD [address] [place] [address] Health Maintenance Due Date Last Done Comments COLOGUARD (AGES 45-75) - COLON CA SCREENING 1957 COLON MONITORING 1957 COLONOSCOPY - COLON CA SCREENING 1957 CT COLONOGRAPHY - COLON CA SCREENING 1957 Colorectal Cancer Screening 1957 FIT - COLON CA SCREENING 1957 FLEX SIG - COLON CA SCREENING 1957 LIPID TESTING 1957 HEPATITIS C SCREENING 05/02/1975 DTAP/TDAP/TD VACCINES (1 - Tdap) 1976 PNEUMOCOCCAL VACCINE 50+ (1 of 2 - PCV) 1976 ZOSTER VACCINE (1 of 2) 2007 HEPATITIS B VACCINE (1 of 3 - Risk 3-dose series) 2017 Respiratory Syncytial Virus (RSV) Vaccine Pt: or over 60 yrs (1 - Risk 60-74 years 1-dose series) 2017 COVID-19 VACCINE ( season) 2024 06/14/2021, 11/26/2020, 11/03/2020 DEPRESSION SCREENING 09/02/2024 MEDICARE AWV CALENDAR YEAR 2024 INFLUENZA VACCINE (Season Ended) 2025 05/30/2022, 06/14/2021, 07/18/2020, Additional history exists HIB VACCINE Aged Out No longer eligi ble based on patient's age to complete this topic HPV VACCINE Aged Out No longer eligi ble based on patient's age to complete this topic MENINGOCOCCAL (Group B) VACCINE SHARED DECISION-MAKING Aged Out No longer eligible based on patient's age to complete this topic MENINGOCOCCAL GROUPS A/C/Y/W VACCINE Aged Out No longer eligible based on patient's age to complete this topic Insurance [employer] MEDICARE ADV SELF PAY NO INSURANCE Member Subscriber Plan / Payer (Ef fective for All Dates) Name:Ray Phillips Member ID:Not on file Relation to Subscriber:Not on file Name:RAY PHILLIPS Subscriber ID:Not on file (Home) Address: [address] [place] [id number] Payer ID:Not on file Group ID:Not on file Type:Self Pay Address: [place], [place] Advance Directives * Full Code (Latest Code Status on File) Date Activated Date Inactivated Comments 08/16/2024 6:25 PM 08/20/2024 1:32 PM Care Teams Safety Tech Relationship Specialty Start Date End Date Mark Carmichael DO [address] [place] [id number] PCP - General Family Medicine 08/16/24
--- OUTSIDE RECORDS SUMMARY | 2024-12-19 16:15 | XMS_ITS | Continuity of Care Document ---
Author Organization [facility] Address [address] [place] [address] [place] [address] Phone Care Team Providers Care Remote Broadcast Engineer Name Role Phone Adriana Lim Unavailable Unavailable Procedures Procedure Date Office/outpatient Visit, Est Office/outpatient Visit, Est Office/outpatient Visit, Est Office Consultation Advance Directives Directive Yes / No Effective Date File Name No Information Encounters Encounter Description Practice Location Reason(s) For Visit Diagnoses Date Provider Providers Copied on Encounter Office/outpati ent Visit, [facility], [address] [place] [address] [address], [place], [place], [id number], tel:[phone] [facility] No Information Feb-2 4-200 9 Carina Bills [address] , [address], [place], [place], [facility], . tel:[phone] Office/outpati ent Visit, [facility], [address] [place] [address] [address], [place], [place], [id number], tel:[phone] [facility] No Information Feb-1 0-200 9 Carina Bills [address] , [address], [place], [address], . tel:[phone] Office/outpati ent Visit, [facility], [address] [place] [address] [address], [place], [place], [id number], tel:[phone] [facility] No Information Feb-0 3-200 9 Carina Wright. [address] , [address], [place], [address], [place]. tel:[phone] Office Consultation [facility], [address], [place], [place], [id number], [place] tel:[phone] [facility] No Information 9 Carina Wright. [address] [facility] , [address], [place], [address], [place]. tel:[phone] Referring Provider: Jeff Grayson, [address] [place], [address]. tel:[phone] Family History Family Member Type Diagnosis Age At Onset No Information Payers Payer name Insurance type Covered alliance party ID Authoriza tiash(s) [place] [id number] Social History Type Description Quantity Date Captured [...]
--- OUTSIDE RECORDS SUMMARY | 2024-12-19 16:15 | XMS_ITS | Continuity of Care Document ---
Author Organization [facility] Address [address] [place] [address] Phone Care Team Providers Care Flow Worker Name Role Phone Junior Menard MD [...] Providers Copied on Encounter [facility], [address], [facility], tel:[phone] [facility] No Information [address]. [address] [place], [place], [id number] . tel: [phone] OFFICE/OUTPA TIENT VISIT NEW [facility], [address], [facility], tel:[phone] [facility] Body Mass Index 29.0-29.9, adultDietary surveillance and counselingHyperte nsion, UnspecifiedLumbar RadiculopathyOthe r unspecified back disorder [address] [address] [place], [place], [id number] . tel: [phone] Family History Family Member Type Diagnosis Age At Onset Problem (finding) Family history of rheum atoid arthritis Payers Payer name Insurance type Covered constitution party ID Authoriza tiash(s) No Information Social History [...]
--- OUTSIDE RECORDS SUMMARY | 2024-12-19 16:15 | XMS_ITS | Clinical Summary ---
Author Organization [facility] Address [address] [place] [address] Care Team Providers Care Linux Kernel Developer Name Role Phone Mark Carmichael DO Primary Care Provider [phone] Allergies Active Allergy Reactions Criticality Noted Date [...] as needed for Pain. Indications: Chronic Pain Active Active Problems Problem Noted Date Diagnosed Date Respiratory failure ([facility]/HCC [facility]) 07/25/2022 Immunizations Immunization Administration Dates Next Due Fluzone 6 Months+ [...] Comments Blood Pressure 162/92 08/27/2022 12:55 PM UNDERGROUND CONDUIT INSTALLER Pulse 64 08/27/2022 12:55 PM UNDERGROUND CONDUIT INSTALLER Temperature 36.2 C (97.2 F) 08/27/2022 12:55 PM UNDERGROUND CONDUIT INSTALLER Respiratory Rate 22 08/27/2022 12:5 5 PM UNDERGROUND CONDUIT INSTALLER Oxygen Saturation 97% 08/27/2022 12: 55 PM UNDERGROUND CONDUIT INSTALLER Inhaled Oxygen Concentration - - Weight 67.5 kg (148 lb 12.8 oz) 07/28/2022 3:26 AM UNDERGROUND CONDUIT INSTALLER Height 165.1 cm (5' 5 ) 07/25/2022 1:30 PM UNDERGROUND CONDUIT INSTALLER Body Mass Index 24.76 07/25/2022 1:30 PM UNDERGROUND CONDUIT INSTALLER Plan of Treatment Health Maintenance Due Date Last Done Comments Colorectal Cancer Screening Colonoscopy (10 Years) 1957 Hepatitis C 1975 Pneumococcal Vaccine: 50+ Years (1 of 1 - PCV) 2007 Zoster Vaccines (1 of 2) 2007 Annual Medicare Wellness Visit 2022 DTaP, Tdap and Td Vaccines ( 2 - Td or Tdap) 07/03/2023 07/03/2013 COVID-19 Vaccine (4 - 2023-2 5 season) 2024 06/14/2021, 11/26/2020, 11/03/2020 RSV Immunization or 60+ Years (1 - 1-dose 75+ series) 2032 Meningococcal B Vaccine Aged Out No l onger eligible based on patient's age to complete this topic Meningococcal Vaccine Aged Out No yogi hansa eligible based on patient's age to complete this topic RSV Immunizations Under 20 Months Aged Out No longer eligible b ased on patient's age to complete this topic Goals Goal Patient Goal Type Associated Problems Recent Progress Patient-Stated? Author Family - family caregiver with be involved in care transitions and discharge planning Lifestyle No Angela Dawkins, MANAGER INTENSIVE CAREslubber tender [employer]ETNA Advance Directives * Full Code (Latest Code Status on File) Date Activated Date Inactivated Comments 08/09/2022 8:44 PM * Full Code Date Activated Date Inactivated Comments 07/25/2022 1:55 PM 08/08/2022 1:57 PM Care Teams Linux Kernel Developer Relationship Specialty Start Date End Date Mark Carmichael DO [address] [place] [address] PCP - General FAMILY PRACTICE 07/22/22
--- OUTSIDE RECORDS SUMMARY | 2024-12-19 16:25 | XMS_ITS | Continuity of Care Document ---
Author Organization [facility] Address [address] [facility] [address] [place] [address] Phone Care Team Providers Care English Horn Player Name Role Phone Junior Menard MD Unavailable [...] Providers Copied on Encounter [facility], [address], [facility], tel:[phone] [facility] No Information [address] [address] [place], [place], [id number] . tel: [phone] OFFICE/OUTPA TIENT VISIT NEW [facility], [address], [facility], tel:[phone] [facility] Body Mass Index 29.0-29.9, adultDietary surveillance and counselingHyperte nsion, UnspecifiedLumbar RadiculopathyOthe r unspecified back disorder [address] [address] [place], [place], [id number] . tel: [phone] Family History Family Member Type Diagnosis Age At Onset Problem (finding) Family history of rheum atoid arthritis Payers Payer name Insurance type Covered republican ID Authoriza tiash(s) No Information Social History [...]
--- OUTSIDE RECORDS SUMMARY | 2024-12-19 16:25 | XMS_ITS | Continuity of Care Document ---
Author Organization [facility] Address [address] [place] [address] [place] [address] Phone Care Team Providers Care Solar Panel Technician Name Role Phone Adriana Lim Unavailable Unavailable Procedures Procedure Date Office/outpatient Visit, Est Office/outpatient Visit, Est Office/outpatient Visit, Est Office Consultation Advance Directives Directive Yes / No Effective Date File Name No Information Encounters Encounter Description Practice Location Reason(s) For Visit Diagnoses Date Provider Providers Copied on Encounter [place] [facility] [place] [address] [place] [address] [address], [place], [place], [id number], tel:[phone] [facility] No Information Feb-2 4-200 9 Carina Bills [address] [facility] , [address], [place], [place], [facility], . tel:[phone] [place]pat[place] [facility] [place] [address] [place] [address] [address], [place], [place], [id number], tel:[phone] [facility] No Information Feb-1 0-200 9 Carina Bills [address] , [address], [place], [address], . tel:[phone] Office/[place]pati ent Visit, [facility] [place] [address] [place] [address] [address], [place], [place], [id number], tel:[phone] [facility] No Information Feb-0 3-200 9 Carina Wright. [address] , [address], [place], [address], [place]. tel:[phone] Office Consultation [facility], [address], [place], [place], [address], [place] tel:[phone] [facility] No Information 9 Carina Wright. [address] [facility] , [address], [place], [address], [place]. tel:[phone] Referring Provider: Jeff Grayson, [address] [place], [address]. tel:[phone] Family History Family Member Type Diagnosis Age At Onset No Information Payers Payer name Insurance type Covered alliance party ID Authoriza tiash(s) [place] [id number] Social History Type Description Quantity Date Captured [...]
[2024-12-19] MEDS: MORPHINE SULFATE (*CRX) 2 MG/ML INJ IM (17:07)
--- NOTE | 2024-12-19 17:19 | ED.LOWEXIN ---
HPI - Extremity Injury (Lower) General Chief Complaint: Extremity Injury, Lower Stated Complaint: hip pain Time Seen by Provider: 12/19/24 16:16 Source: patient and family Mode of arrival: wheelchair Limitations: physical limitation History of Present Illness HPI Narrative: this is a 69-year-old male presents with his in a wheelchair had a fall yesterday ground level when he slipped on a mat and fell to the ground injuring his left hip. Has occurred yesterday is having pain that he rates about a 7/10 with decreased range of motion and pain with palpation. No other injuries noted no loss of consciousness. complaint: hip injury Onset (ago): day(s) Injury: Left: hip ( pain with decreased range of motion) Type of Injury: blunt Place: home Severity: moderate Severity scale (1-10): 7 Relieving factors: immobilization Exacerbating factors: weight bearing and movement Context: fall Associated symptoms: unable to bear weight Related Data Home Medications ?Medication ?Instructions ?Recorded ?Confirmed ?Last Taken ?Type cyclobenzaprine 10 mg tablet 10 mg PO BID PRN Back Pain 05/30/22 09/04/24 05/07/24 History gabapentin 300 mg capsule 300 mg PO BID 02/05/24 09/04/24 05/07/24 History morphine 30 mg immediate release 30 mg PO Q8H PRN Pain 02/05/24 09/04/24 05/07/24 History tablet acetaminophen 300 mg-codeine 60 mg 1 tablet PO TID PRN Pain 04/13/24 09/04/24 05/07/24 History tablet Allergies Allergy/AdvReac Type Severity Reaction Status Date / Time NSAIDS (Non-Steroidal AdvReac Mild Abdominal Verified 12/19/24 16:23 Anti-Inflamma Pain ibuprofen AdvReac Sick Verified 12/19/24 16:23 feeling prednisone AdvReac Sick Verified 12/19/24 16:23 feeling Review of Systems Review of Systems: All systems reviewed & are unremarkable except as noted in HPI and below PMFSH Past Medical History Medical History Bleeding disorder Lumbar spondylosis Pericardial effusion Pneumonia Restless leg syndrome Osteoporosis Hypertension Hepatitis Headache Cancer Arthritis Anxiety and depression Chronic back pain Surgical History Surgical History Status post lumbar surgery Previous back surgery Family History Family History Mother Cancer Diabetes mellitus Sibling Cancer Social History Social History Smoking packs per day: 0.25 Smoking cigarettes per day: 5.0 Years smoked: 53 Smoking pack-years: 13.25 Smoking status: Current every day smoker Tobacco type: cigarettes Smoking end date: 07/09/22 Alcohol intake: former Substance use: current Substance use type: does not use Lack of Transportation: No Lack of Food: Sometimes True Current Housing: I Have Housing Concerned About Future Housing: No Difficulty Paying Gas/Electric Bills: No Difficulty Paying for Meds: No Currently Unemployed: No Education: High School Diploma/GED Difficulty w/ Childcare or Family Care: No Living arrangements: with family Spiritual care concerns: No Exam Const: General: healthy appearing and no acute distress Nutritional Appearance: thin Orientation/consciousness: patient oriented x3 Limitations: physical limitations HENMT: Head: normal to inspection Eyes: Conjunctivae: conjunctivae normal Pupils: Equal, round and reactive pupils present Neck: Neck: normal visual inspection, no lymphadenopathy and no meningeal signs Chest: Chest palpation & inspection: normal inspection of the chest Resp: Effort & Inspection: normal respiratory effort Auscultation: clear to auscultation bilaterally Cardio: Rate: regular rate Rhythm: regular rhythm GI: GI Palp: Yes Soft to palpation Auscultation: normal bowel sounds Skin: General skin exam: normal color Rashes: no rashes Neuro: General: patient oriented x3, no meningeal signs, no focal motor deficits and CN's II-XI intact bilaterally Extrem: Other: Tenderness right hip area with movement and palpation Course Course Emergency Course: patient received 2mg IM morphine for pain control, x-rays of his left hip and pelvis show a fracture of the left femoral neck. Spoke to Orthopedics at [facility] that excepted the patient for transfer/ spoke to hospitalist at [place] that accepted the transfer patient for transfer. Vital Signs Vital signs: Vital Signs Temperature 36.2 C L 12/19/24 16:13 Pulse Rate 109 H 12/19/24 16:13 Respiratory Rate 18 12/19/24 16:13 Blood Pressure 139/79 12/19/24 16:13 Pulse Oximetry 94 12/19/24 16:13 Oxygen Delivery Room Air 12/19/24 16:13 Temperature 36.2 C L 12/19/24 16:13 Pulse Rate 69 12/19/24 20:56 Respiratory Rate 18 12/19/24 20:56 Blood Pressure 140/62 12/19/24 20:56 Pulse Oximetry 97 12/19/24 20:56 Oxygen Delivery Room Air 12/19/24 20:56 Critical Care Time Critical Care Time Critical Care Time: No Discharge Plan Discharge Clinical Impression: Fracture of femoral neck, left Qualifiers: Encounter type: initial encounter Fracture type: closed Qualified Code(s): S72.002A - Fracture of unspecified part of neck of left femur, initial encounter for closed fracture Patient Disposition: Acute Care Hospital Condition: Stable Patient Language: Polish Prescriptions: No Action pantoprazole 40 mg tablet,delayed release (DR/EC) 40 mg PO QAM Qty: 30 3RF cyclobenzaprine 10 mg tablet 10 mg PO BID PRN (Reason: Back Pain) duloxetine 60 mg capsule,delayed release(DR/EC) 60 mg PO DAILY Qty: 90 3RF morphine 30 mg tablet 30 mg PO Q8H PRN (Reason: Pain) gabapentin 300 mg capsule 300 mg PO BID acetaminophen-codeine 300-60 mg tablet 1 tablet PO TID PRN (Reason: Pain) lisinopril 20 mg tablet See Rx Instructions .ROUTE .COMPLEX Qty: 90 2RF Dose Instruction: TAKE 1 TABLET BY MOUTH EVERY DAY Rx Instructions: TAKE 1 TABLET BY MOUTH EVERY DAY trazodone 100 mg tablet See Rx Instructions .ROUTE .COMPLEX Qty: 90 0RF Dose Instruction: 100 MG ORALLY EVERY DAY AT BEDTIME NEEDED FOR INSOMNIA Rx Instructions: 100 MG ORALLY EVERY DAY AT BEDTIME NEEDED FOR INSOMNIA Follow-up/Referrals: Mark Carmichael DO [Primary Care Provider] - Time of Disposition: 18:18
--- NOTE | 2024-12-19 18:54 | PC.NURSE ---
ASSUMED CARE. REPORT RECEIVED FROM CHUY JAFFE. CURRENTLY WAITING ON BED ASSIGNMENT FROM [facility]
--- NOTE | 2024-12-19 18:54 | PC.NURSE ---
pt report to meme johnson. pending bed assignment at [facility] for transfer.
--- NOTE | 2024-12-19 20:30 | PC.NURSE ---
PATIENT REQUESTING SOMETHING FOR PAIN. DR WALSH NOTIFIED. VERBAL ORDER RECEIVED.
[2024-12-19] MEDS: HYDROmorphone HCL INJ (*CRX) 2 MG/ML VIAL 0.5 MG IV PUSH (20:35)
[2024-12-19 20:56] VITALS: BP 140/62; PULSE 69; RESP 18; O2SAT 97
== END 2024-12-19 20:56 | disposition short-term general hospital (02) ==
PROVIDERS: Emergency Provider Emergency Medicine; PCP Family Medicine
DX: S72.002A Fracture of unspecified part of neck of left femur, initial encounter for closed fracture (principal); I10 Essential (primary) hypertension; F17.210 Nicotine dependence, cigarettes, uncomplicated; W18.30XA Fall on same level, unspecified, initial encounter
CPT/HCPCS: 72100; 73502; 96374; 96375; 99285; J1171; J2270

== ENCOUNTER 2024-12-19 23:10 | Inpatient (IN) | payer MEDICARE, SELFPAY ==
--- NOTE | ~2024-12-19 | XR_ITS ---
EXAM: XR hip LT min 2V DATE: 12/21/2024 18:38 HISTORY: LEFT BIPOLAR . COMPARISON: 12/19/2024. FINDINGS: Bipolar left hip arthroplasty. Hardware in good position. Surgical skin terry over the left hip. Fl uid and gas over the hip. No unexpected radiopaque foreign body IMPRESSION: Expected postsurgical changes, with no radiographic evidence of procedure or hardware rel ated complication. Reviewed, dictated and finalized at location K. IMPRESSION: Expected postsurgical changes, with no radiographic evidence of pro cedure or hardware related complication.
--- NOTE | 2024-12-19 20:28 | ADMGEN ---
Addendum entered by Jessica Brar RN 12/20/24 00:34: CORRECTION TO TIME ENTRY: 12/16/24 @ 2128 PT ADMITTED Original Note: This patient, Ray Ashley, was admitted to 2 Medical Room 244-01. Patient/family oriented to hospital policies and general routines including ID bracelet, bed and alarms, visiting hours, pain management, procedures, bathroom and other care routines, personal items, smoking policy, room service/diet, and visiting hours. Information on how to activate the Rapid Response Team has been discussed. Patient/Family are encouraged to report perceived risks to care and to ask questions if they do not understand what they are told or what they should do.
[2024-12-19 21:28] VITALS: PULSE 65; RESP 18; O2SAT 100; BMI 24.6
--- OUTSIDE RECORDS SUMMARY | 2024-12-19 21:29 | XMS_ITS | Continuity of Care Document ---
Author Organization [facility] Address [address] [facility] [address] [place] [address] Phone Care Team Providers Care Slip Bridge Operator Name Role Phone Junior Menard MD Unavailable [...] Providers Copied on Encounter [facility], [address], [facility], tel:[phone] [facility] No Information [address] [address] [place], [place], [id number] . tel: [phone] OFFICE/OUTPA TIENT VISIT NEW [facility], [address], [facility], tel:[phone] [facility] Body Mass Index 29.0-29.9, adultDietary surveillance and counselingHyperte nsion, UnspecifiedLumbar RadiculopathyOthe r unspecified back disorder [address] [address] [place], [place], [id number] . tel: [phone] Family History Family Member Type Diagnosis Age [...]
--- OUTSIDE RECORDS SUMMARY | 2024-12-19 21:29 | XMS_ITS | Continuity of Care Document ---
Author Organization [facility] Address [address] [place] [address] [place] [address] Phone Care Team Providers Care Stamp Classifier Name Role Phone Adriana Lim Unavailable Unavailable Procedures Procedure Date Office/outpatient Visit, Est Office/outpatient Visit, Est Office/outpatient Visit, Est Office Consultation Advance Directives Directive Yes / No Effective Date File Name No Information Encounters Encounter Description Practice Location Reason(s) For Visit Diagnoses Date Provider Providers Copied on Encounter Office/outpati ent Visit, [facility], [address] [place] [address] [address], [place], [place], [id number], tel:[phone] [facility] No Information Feb-2 4-200 9 Car[address] Bills [address] [facility] , [address], [place], [place], [facility], . tel:[phone] Office/outpati ent Visit, [facility], [address] [place] [address] [address], [place], [place], [address], tel:[phone] [facility] No Information Feb-1 0-200 9 Car[address] , [address], [place], [address], . tel:[phone] Office/outpati ent Visit, [facility], [address] [place] [address] [address], [place], [place], [address], tel:[phone] [facility] No Information Feb-0 3-200 9 Carina Wright. [address] , [address], [place], [address], [place]. tel:[phone] Office Consultation [facility], [address], [place], [place], [address], [place] tel:[phone] [facility] No Information 9 Carina Wright. [address] [facility] , [address], [place], [address], [place]. tel:[phone] Referring Provider: Jeff Grayson, [address] [place], [address]. tel:[phone] Family History Family Member Type Diagnosis Age At Onset No Information Payers Payer name Insurance type Covered constitution party ID Authoriza tiash(s) [place] [id number] Social History Type Description Quantity Date Captured [...]
--- OUTSIDE RECORDS SUMMARY | 2024-12-19 21:29 | XMS_ITS | Clinical Summary ---
Author Organization [facility] Address [address] [place] [address] Care Team Providers Care 3Rd Pressman Name Role Phone Mark Carmichael DO Primary Care Provider [phone] Allergies Active Allergy Reactions Criticality Noted Date [...] Problem Noted Date Diagnosed Date Respiratory failure ([facility]) 07/25/2022 Immunizations Immunization Administration Dates Next Due [...] Comments Blood Pressure 162/92 08/27/2022 12:55 PM HOUSEKEEPER SUPERVISOR Pulse 64 08/27/2022 12:55 PM HOUSEKEEPER SUPERVISOR Temperature 36.2 C (97.2 F) 08/27/2022 12:55 PM HOUSEKEEPER SUPERVISOR Respiratory Rate 22 08/27/2022 12:5 5 PM HOUSEKEEPER SUPERVISOR Oxygen Saturation 97% 08/27/2022 12: 55 PM HOUSEKEEPER SUPERVISOR Inhaled Oxygen Concentration - - Weight 67.5 kg (148 lb 12.8 oz) 07/28/2022 3:26 AM HOUSEKEEPER SUPERVISOR Height 165.1 cm (5' 5 ) 07/25/2022 1:30 PM HOUSEKEEPER SUPERVISOR Body Mass Index 24.76 07/25/2022 1:30 PM HOUSEKEEPER SUPERVISOR Plan of Treatment Health Maintenance Due Date [...] and discharge planning Lifestyle No Angela Dawkins, [employer] DIRECTORjob estimator [employer] Advance Directives * Full Code (Latest Code Status on File) Date Activated Date Inactivated Comments 08/09/2022 8:44 PM * Full Code Date Activated Date Inactivated Comments 07/25/2022 1:55 PM 08/08/2022 1:57 PM Care Teams 3Rd Pressman Relationship Specialty Start Date End Date Mark Carmichael DO [address] [place] [address] PCP - General FAMILY PRACTICE 07/22/22
--- OUTSIDE RECORDS SUMMARY | 2024-12-19 21:29 | XMS_ITS | Clinical Summary ---
Author Organization [facility] Address [address] [place] [address] Care Team Providers Care Bath Tester Name Role Phone Melchorleeanne Markelvia BACK Primary Care Provider [phone] Source Comments [facility],non-owned Affiliates and Associated Physician Practices is amultiple site organization consisting of ambulatory clinics and hospital sitesin [place], [place], [place] and [place]. This disclosure is being madepursuant to the Care Everywhere program and may not contain all information available regarding this patient. Last updated 18.[facility] Allergies Active Allergy Reactions Criticality Noted Date [...] and heating? Not hard at all 08/20/2024 [facility] [employer] of Occupat ional Health - Occupational Stress [...] any time in the past 12 m [facility], were you homeless or living in a care home (including now)? 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 Gender Identity Not on file Sexual Orientation Not on file Last Filed Vital Signs Vital Sign Reading Time Taken Comments Blood Pressure 164/85 08/20/2024 11:05 AM CONCRETE MIXER TRUCK DRIVER Pulse 60 08/20/2024 11:05 AM CONCRETE MIXER TRUCK DRIVER Temperature 36.8 C (98.3 F) 08/20/2024 11:05 AM CONCRETE MIXER TRUCK DRIVER Respiratory Rate 20 08/20/2024 11:05 AM CONCRETE MIXER TRUCK DRIVER Oxygen Saturation 97% 08/20/2024 11:05 AM CONCRETE MIXER TRUCK DRIVER Inhaled Oxygen Concentration - - Weight 74.5 kg (164 lb 3.2 oz) 08/18/2024 4:00 A M CONCRETE MIXER TRUCK DRIVER Height 182.9 cm (6') 08/16/2024 5:26 AM CONCRETE MIXER TRUCK DRIVER Body Mass Index 22.27 08/16/2024 5:26 AM CONCRETE MIXER TRUCK DRIVER Plan of Treatment Upcoming Encounters Date Type Department Care Team (Late st Contact Info) Description 01/19/2025 11:00 AM CDT Office Visit [facility] [address] [facility], [facility] [place] [id number] Raymond Miller MD [address] [place] [address] Health Maintenance Due Date Last [...] age to complete this topic [place] [address] AETNA MEDICARE ADV SELF PAY NO INSURANCE Member Subscriber Plan / Payer (Ef fective for All Dates) Name:Ray Pihllips Member ID:Not on file Relation to Subscriber:Not on file Name:RAY PHILLIPS Subscriber ID:Not on file (Home) Address: [address] [place] [id number] Payer ID:Not on file Group ID:Not on file Type:Self Pay Address: [place], [place] Advance Directives * Full Code (Latest Code Status on File) Date Activated Date Inactivated Comments 08/16/2024 6:25 PM 08/20/2024 1:32 PM Care Teams Bath Tester Relationship Specialty Start Date End Date Mark Carmichael DO [address] [place] [address] PCP - General Family Medicine 08/16/24
--- OUTSIDE RECORDS SUMMARY | 2024-12-19 21:29 | XMS_ITS | Encounter Summary ---
Author Organization [facility] Address [facility] [place] [address] Care Team Providers Care Genetic Counsellor Name Role Phone Channing Panchal MD Primary Care Provider [phone] Mark Carmichael DO Primary Care Provider [phone] Encounter Details Date Type Department Care Team (Late st Contact Info) Description 02/07/2019 Abstract SFL CONVERSION [address] [place] [address] , Generic Conversion, Social History Tobacco Use [...] Rule Out 07/25/2022 07/25/2022 08/01/2022 12:32 AM NET SQL DEVELOPER documented as of this encounter Care Teams Genetic Counsellor Relationship Specialty Start Date End Date Channing Panchal MD [address] [place] [address] PCP - General INTERNAL MEDICINE 08/17/21 07/21/22 Mark Carmichael DO [address] [place] [address] PCP - General FAMILY PRACTICE 07/22/22 documented as of this encounter
[2024-12-19 21:50] VITALS: BP 153/77; PULSE 65; RESP 180; TEMP 36.4; O2SAT 100
[2024-12-19] MEDS: MORPHINE SULFATE (*CRX) 2 MG/ML INJ IV PUSH (22:05)
[2024-12-19] MEDS: ONDANSETRON INJ 4 MG/2 ML VIAL IV PUSH (22:05)
--- NOTE | 2024-12-19 22:05 | P.HP_ITS ---
H&P: HPI History of Present Illness Date/Time: 12/19/24 22:05 Chief Complaint: left leg pain Narrative: 69-year-old male with frequent falls, hepatitis, hypertension, osteoporosis and chronic back pain status post surgery presents the hospital after a fall with left leg pain. Patient had a bad fall in August down 12 steps since then been using wheelchair and walker. Today patient had a ground level fall landing on his left hip he complains of the a lump on his hip that is causing him pain. Patient denies nausea vomiting, fever chills. Patient states the pain is achy worse with movement better with rest. Patient was brought to outside hospital where he was found to have a fracture of the left femoral neck and was sent to [facility] for orthopedic surgery. Orthopedic surgery as accepted the patient and planned for surgery in a.m.. BMP within normal limits. Review of Systems Review of Systems: 12 systems were reviewed and are negativ e except for as per HPI. [facility] Past Medical History Medical History Bleeding disorder Lumbar spondylosis Pericardial effusion Pneumonia Restless leg syndrome Osteoporosis Hypertension Hepatitis Headache Cancer Arthritis Anxiety and depression Chronic back pain Surgical History Surgical History Status post lumbar surgery Previous back surgery Family History Family History Mother Cancer Diabetes mellitus Sibling Cancer Social History Social History Smoking packs per day: 0.25 Smoking cigarettes per day: 5.0 Years smoked: 53 Smoking pack-years: 13.25 Smoking status: Current every day smoker Tobacco type: cigarettes Smoking end date: 07/09/22 Alcohol intake: former Substance use: never Substance use type: does not use Do You Feel Safe in your Home?: Yes Lack of Transportation: YES Lack of Food: Never True Current Housing: I Have Housing Concerned About Future Housing: No Difficulty Paying Gas/Electric Bills: No Difficulty Paying for Meds: No Currently Unemployed: No Education: High School Diploma/GED Difficulty w/ Childcare or Family Care: No Living arrangements: with family Spiritual care concerns: No Meds Home Medications and Allergies Home Medications ?Medication ?Instructions ?Recorded ?Confirmed ?Type cyclobenzaprine 10 mg tablet 10 mg PO BID PRN Back Pain 05/30/22 12/19/24 History duloxetine 60 mg capsule,delayed 60 mg PO DAILY #90 caps 02/05/24 12/19/24 Rx release gabapentin 300 mg capsule 300 mg PO BID 02/05/24 12/19/24 History morphine 30 mg immediate release 30 mg PO Q8H PRN Pain 02/05/24 12/19/24 History tablet pantoprazole 40 mg tablet,delayed 40 mg PO QAM #30 tabs 03/17/24 12/19/24 Rx release acetaminophen 300 mg-codeine 60 mg 1 tablet PO TID PRN Pain 04/13/24 12/19/24 History tablet lisinopril 20 mg tablet See Rx Instructions .Route 08/06/24 12/19/24 Rx .COMPLEX #90 tabs trazodone 100 mg tablet See Rx Instructions .Route 11/03/24 12/19/24 Rx .COMPLEX #90 tabs Allergies Allergy/AdvReac Type Severity Reaction Status Date / Time NSAIDS (Non-Steroidal AdvReac Mild Abdominal Verified 12/19/24 21:54 Anti-Inflamma Pain ibuprofen AdvReac Sick Verified 12/19/24 21:54 feeling prednisone AdvReac Sick Verified 12/19/24 21:54 feeling Vital Signs Vital Signs - 24 hr 12/19/24 21:50 Temperature 97.5 F L Pulse Rate 65 Respiratory Rate 180 H Blood Pressure 153/77 H Pulse Oximetry 100 Exam Narrative: General: well appearing, appears stated age. HEENT: normocephalic, atraumatic. Mucous membranes moist. EOMI, PERRLA, bilateral sclera anicteric, no conjunctival injection. Neck supple without JVD, lymphadenopathy, or bruit. Respiratory: clear to ascultation bilaterally. No rales/rhonic/wheezes. Cardiovascular: Regular rate and rhythm, normal S1-S2 upon ascultation. No murmurs, rubs, or clicks. PMI is nondisplaced, capillary refill less than 3 second. Abdomen: Soft, round, no pulsatile masses, nondistended and nontender. No rebound, no guarding. No CVA tenderness, no hepatosplenomegaly. Bowel sounds present to all four quadrants. No high pitch or tinkling sounds, resonant to percussion. Extremities: No cyanosis, clubbing, or edema present. Pulses are palpable 2/2. Left lower extremity range of motion reduced due to acute pain Neuro: Alert and orientated x 4. PERRLA. Cranial nerves 2-12 intact without focal deficit. Skin: Warm, dry, and intact, without rash, erythema, or lesion. Psych: pleasant, cooperative, normal speech, normal affect, no hallucinations, no dysarthia Assessment and Plan Assessment and plan (1) Fall: Code(s): W19.XXXA - Unspecified fall, initial encounter Status: Acute Assessment and Plan: Patient has been using a wheelchair or walker for the last month due to a fall in August Patient states that has grown level fall would benefit from syncopal workup He will need PT OT after surgery (2) Fracture of femoral neck, left: Qualifiers: Encounter type: initial encounter Fracture type: closed Qualified Code(s): S72.002A - Fracture of unspecified part of neck of left femur, initial encounter for closed fracture Code(s): S72.002A - Fracture of unspecified part of neck of left femur, initial encounter for closed fracture Status: Acute Assessment and Plan: Orthopedics consulted Plan for OR tomorrow NPO at midnight A.m. labs Pain management and bowel protocol (3) Anxiety: Code(s): F41.9 - Anxiety disorder, unspecified Status: Acute Assessment and Plan: Continue Cymbalta (4) Hypertension: Code(s): I10 - Essential (primary) hypertension Status: Acute Assessment and Plan: Continue lisinopril (5) Chronic back pain: Code(s): M54.9 - Dorsalgia, unspecified; G89.29 - Other chronic pain Status: Acute Assessment and Plan: Pain management adequate wound to home medications And gabapentin Quality VTE Prophylaxis VTE prophylaxis: mechanical ordered Patient states that he is willing to be intubated for surgery however he does not want CPR for cardiac arrest or intubation for respiratory distress. Hospitalist MIPS Advance Care Plan I have confirmed that the patient's Advanced Care Plan is present, code status is documented, or surrogate decision maker is listed in patient medical record.: Yes Medication Reconciliation I have utilized all available resources to obtain, update and review the patients current medications (includes all prescriptions, OTC, herbals, cannabis, and nutritional supplements).: Yes
[2024-12-19 22:14] LABS: Basophils Percent Auto 0.4 % (0.2-1.2); Eosinophils Absolute Auto 0.1 K/mm3 (0-0.3); Eosinophils Percent Auto 1.1 % (0-4.4); Hematocrit 38.5 % (42.0-52.0); Hemoglobin 12.6 g/dL (14.0-18.0); Immature Granulocyte Absolute 0.02 K/mm3 (0.00-0.031); Immature Granulocyte Percent A 0.4 % (0-0.5); Lymphocytes Absolute Auto 1.04 K/mm3 (0.9-3.2); Lymphocytes Percent Auto 18.6 % (18.3-44.2); Mean Corpuscular HGB Conc 32.7 g/dl (32-36); Mean Corpuscular Volume 103.8 fl (80-100); Mean Platelet Volume 10.3 fl (7.4-10.4); Monocytes Absolute Auto 0.7 K/mm3 (0.1-0.6); Neutrophils Absolute Auto 3.7 K/mm3 (1.3-6.7); Neutrophils Percent Auto 66.5 % (45.5-73.1); Platelet Count Result 112 k/mm3 (150-375); Red Blood Count 3.71 M/mm3 (4.6-6.20); Red Cell Distribution Width 13.2 % (11.5-14.5); White Blood Count 5.6 K/mm3 (4.5-10.0)
[2024-12-19 22:22] LABS: Anion Gap 6 mmol/L (4-12); Blood Urea Nitrogen 12 mg/dL (9-20); Calcium 8.8 mg/dL (8.4-10.2); Carbon Dioxide 27 mmol/L (22-30); Chloride 104 mmol/L (98-107); Estimated CRCL calculation 64 ml/min; Estimated Glomerular Filt Rate > 60; Glucose 91 mg/dL (65-110); Potassium 4.2 mmol/L (3.4-5.0); Sodium 137 mmol/L (137-145)
--- OUTSIDE RECORDS SUMMARY | 2024-12-19 23:36 | XMS_ITS | Encounter Summary ---
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
--- OUTSIDE RECORDS SUMMARY | 2024-12-19 23:36 | XMS_ITS | Continuity of Care Document ---
Author Organization [facility] Address [address] [place] [address] [place] [address] Phone Care Team Providers Care Brass Wind Instruments Tube Bender Name Role Phone Adriana Lim Unavailable Unavailable Procedures Procedure Date Office/outpatient Visit, Est Office/outpatient Visit, Est Office/outpatient Visit, Est Office Consultation Advance Directives Directive Yes / No Effective Date File Name No Information Encounters Encounter Description Practice Location Reason(s) For Visit Diagnoses Date Provider Providers Copied on Encounter Office/outpati ent Visit, [facility], [address] [place] [address] [address], [place], [place], [id number], tel:[phone] [facility] No Information Feb-2 4-200 9 Carina Bills [address] , [address], [place], [place], [facility], . tel:[phone] Office/outpati ent Visit, [facility], [address] [place] [address] [address], [place], [place], [id number], tel:[phone] [facility] No Information Feb-1 0-200 9 Carina Bills [address] , [address], [place], [address], . tel:[phone] Office/outpati ent Visit, [facility], [address] [place] [address] [address], [place], [place], [id number], tel:[phone] [facility] No Information Feb-0 3-200 9 Carina Wright. [address] , [address], [place], [address], [place]. tel:[phone] Office Consultation [facility], [address], [place], [place], [id number], [place] tel:[phone] [facility] No Information 9 Carina Wright. [address] [facility] , [address], [place], [address], [place]. tel:[phone] Referring Provider: Jeff Grayson, [address] [place], [address]. tel:[phone] Family History Family Member Type Diagnosis Age At Onset No Information Payers Payer name Insurance type Covered green party ID Authoriza tiash(s) [place] [id number] Social History Type Description Quantity Date Captured [...]
--- OUTSIDE RECORDS SUMMARY | 2024-12-19 23:36 | XMS_ITS | Clinical Summary ---
Author Organization [facility] Address [address] [place] [address] Care Team Providers Care Cripple Chaser Name Role Phone Mark Carmichael DO Primary Care Provider [phone] Allergies Active Allergy Reactions Criticality Noted Date [...] Problem Noted Date Diagnosed Date Respiratory failure ([facility]) 07/25/2022 Immunizations Immunization Administration Dates Next Due [...] Comments Blood Pressure 162/92 08/27/2022 12:55 PM TOILET PRODUCTS MOLDER Pulse 64 08/27/2022 12:55 PM TOILET PRODUCTS MOLDER Temperature 36.2 C (97.2 F) 08/27/2022 12:55 PM TOILET PRODUCTS MOLDER Respiratory Rate 22 08/27/2022 12:5 5 PM TOILET PRODUCTS MOLDER Oxygen Saturation 97% 08/27/2022 12: 55 PM TOILET PRODUCTS MOLDER Inhaled Oxygen Concentration - - Weight 67.5 kg (148 lb 12.8 oz) 07/28/2022 3:26 AM TOILET PRODUCTS MOLDER Height 165.1 cm (5' 5 ) 07/25/2022 1:30 PM TOILET PRODUCTS MOLDER Body Mass Index 24.76 07/25/2022 1:30 PM TOILET PRODUCTS MOLDER Plan of Treatment Health Maintenance Due Date [...] and discharge planning Lifestyle No Angela Dawkins, FRAME HANDsoftware computer specialist [employer] Advance Directives * Full Code (Latest Code Status on File) Date Activated Date Inactivated Comments 08/09/2022 8:44 PM * Full Code Date Activated Date Inactivated Comments 07/25/2022 1:55 PM 08/08/2022 1:57 PM Care Teams Cripple Chaser Relationship Specialty Start Date End Date Mark Carmichael DO [address] [place] [address] PCP - General FAMILY PRACTICE 07/22/22
--- OUTSIDE RECORDS SUMMARY | 2024-12-19 23:36 | XMS_ITS | Continuity of Care Document ---
Author Organization [facility] Address [address] [place] [address] Phone Care Team Providers Care Joint Machine Operator Name Role Phone Junior Menard MD [...] Providers Copied on Encounter [facility], [address], Critical access hospital, tel:[phone] [facility] No Information [address] [address] [place], [place], [id number] . tel: [phone] OFFICE/OUTPA TIENT VISIT NEW [facility], [address], Critical access hospital, tel:[phone] [facility] Body Mass Index 29.0-29.9, adultDietary surveillance and counselingHyperte nsion, UnspecifiedLumbar RadiculopathyOthe r unspecified back disorder [address] [address] [place], [place], [id number] . tel: [phone] Family History Family Member Type Diagnosis Age At Onset Problem (finding) Family history of rheum atoid arthritis Payers Payer name Insurance type Covered green party ID Authoriza tiash(s) No Information Social [...]
--- OUTSIDE RECORDS SUMMARY | 2024-12-19 23:36 | XMS_ITS | Clinical Summary ---
Author Organization [facility] Address [address] [place] [address] Care Team Providers Care Coffee Maker Name Role Phone Melchorleeanne Markelvia BACK Primary Care Provider [phone] Source Comments [facility],non-owned Affiliates and Associated Physician Practices is amultiple site organization consisting of ambulatory clinics and hospital sitesin [place], [place], [place] and [place]. This disclosure is being madepursuant to the Care Everywhere program and may not contain all information available regarding this patient. Last updated 18.[facility] Allergies Active Allergy Reactions Criticality Noted Date [...] heating? Not hard at all 08/20/2024 [facility] of Occupat ional Health - Occupational Stress [...] any time in the past 12 m [facility], were you homeless or living in a intermediate (including now)? 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 Gender Identity Not on file Sexual Orientation Not on file Last Filed Vital Signs Vital Sign Reading Time Taken Comments Blood Pressure 164/85 08/20/2024 11:05 AM WARDROBE CONSULTANT Pulse 60 08/20/2024 11:05 AM WARDROBE CONSULTANT Temperature 36.8 C (98.3 F) 08/20/2024 11:05 AM WARDROBE CONSULTANT Respiratory Rate 20 08/20/2024 11:05 AM WARDROBE CONSULTANT Oxygen Saturation 97% 08/20/2024 11:05 AM WARDROBE CONSULTANT Inhaled Oxygen Concentration - - Weight 74.5 kg (164 lb 3.2 oz) 08/18/2024 4:00 A M WARDROBE CONSULTANT Height 182.9 cm (6') 08/16/2024 5:26 AM WARDROBE CONSULTANT Body Mass Index 22.27 08/16/2024 5:26 AM WARDROBE CONSULTANT Plan of Treatment Upcoming Encounters Date Type Department Care Team (Late st Contact Info) Description 01/19/2025 11:00 AM CDT Office Visit [facility] [address] [facility] [place] [place] [id number] Raymond Miller MD [address] [place] [address] Health Maintenance Due Date Last [...] PHILLIPS Subscriber ID:Not on file (Home) Address: [address] [place] [phone] Payer ID:Not on file Group ID:Not on file Type:Self Pay Address: [place], [place] Advance Directives * Full Code (Latest Code Status on File) Date Activated Date Inactivated Comments 08/16/2024 6:25 PM 08/20/2024 1:32 PM Care Teams Coffee Maker Relationship Specialty Start Date End Date Mark Carmichael DO [address] [place] [address] PCP - General Family Medicine 08/16/24
[2024-12-20] MEDS: lisinopriL 20 MG TABLET BY MOUTH ×2 (00:15→09:18)
[2024-12-20] MEDS: ACETAMINOPHEN 325 MG TABLET 650 MG PO ×5 (00:15→23:37)
[2024-12-20] MEDS: CYCLOBENZAPRINE HCL 10 MG TABLET PO ×4 (00:15→21:01)
[2024-12-20] MEDS: GABAPENTIN 300 MG CAPSULE PO ×4 (00:15→21:01)
[2024-12-20] MEDS: MORPHINE SULFATE (*CRX) 2 MG/ML INJ 4 MG IV PUSH ×6 (03:06→21:47)
[2024-12-20 04:32] LABS: Basophils Percent Auto 0.5 % (0.2-1.2); Eosinophils Absolute Auto 0.1 K/mm3 (0-0.3); Eosinophils Percent Auto 2.1 % (0-4.4); Hematocrit 34.2 % (42.0-52.0); Hemoglobin 11.2 g/dL (14.0-18.0); Immature Granulocyte Absolute 0.01 K/mm3 (0.00-0.031); Immature Granulocyte Percent A 0.2 % (0-0.5); Immature Platelet Fraction Pct 3.8 % (0.9-11.2); Lymphocytes Percent Auto 23.5 % (18.3-44.2); Mean Corpuscular HGB Conc 32.7 g/dl (32-36); Mean Corpuscular Hemoglobin 34.3 pg (26-34); Mean Corpuscular Volume 104.6 fl (80-100); Mean Platelet Volume 11.2 fl (7.4-10.4); Monocytes Absolute Auto 0.5 K/mm3 (0.1-0.6); Monocytes Percent Auto 12.2 % (2.6-8.5); Neutrophils Absolute Auto 2.6 K/mm3 (1.3-6.7); Neutrophils Percent Auto 61.5 % (45.5-73.1); Platelet Count Result 98 k/mm3 (150-375); Red Blood Count 3.27 M/mm3 (4.6-6.20); White Blood Count 4.3 K/mm3 (4.5-10.0)
[2024-12-20 04:43] LABS: Anion Gap 5 mmol/L (4-12); Blood Urea Nitrogen 14 mg/dL (9-20); Calcium 8.4 mg/dL (8.4-10.2); Carbon Dioxide 24 mmol/L (22-30); Chloride 107 mmol/L (98-107); Estimated CRCL calculation 65 ml/min; Estimated Glomerular Filt Rate > 60; Glucose 100 mg/dL (65-110); Potassium 3.9 mmol/L (3.4-5.0); Sodium 136 mmol/L (137-145)
[2024-12-20 05:31] VITALS: BP 112/59; PULSE 116; RESP 18; TEMP 36.9; O2SAT 93
--- NOTE | 2024-12-20 06:57 | P.PNIM_ITS ---
Progress Note: A&P Assessment and Plan (1) Fall: Code(s): W19.XXXA - Unspecified fall, initial encounter Status: Acute Assessment and Plan: Mechanical ground level fall resulting in left hip pain. Not on anticoagulation. Uses cane to ambulate. Patient had a fall in August down a flight of stairs that he states was 2/2 dehydration. He was transferred to [facility] for neurogenic shock at that time. He denies any dizziness/lightheadedness/palpitations or recnt falls since that time. - Hip/pelvis XR: Fracture of left femoral neck - Lumbar spine XR: No acute osseous abnormality of lumbar spine however there are postoperative changes and multilevel degenerative disc disease - See plan below (2) Fracture of femoral neck, left: Qualifiers: Encounter type: initial encounter Fracture type: closed Qualified Code(s): S72.002A - Fracture of unspecified part of neck of left femur, initial encounter for closed fracture Code(s): S72.002A - Fracture of unspecified part of neck of left femur, initial encounter for closed fracture Status: Inactive Assessment and Plan: - Hip/pelvis XR: Fracture of left femoral neck - SCD for DVT ppx - NPO at midnight for surgery tomorrow - PT/OT per ortho recommendations following surgery - Analgesics - Ortho consulted Plan for left hip ciera arthroplasty on 12/[address] Carlos (3) Hypertension: Code(s): I10 - Essential (primary) hypertension Status: Acute Assessment and Plan: Chronic, continue home medications - lisinopril 20 mg daily - blood pressures remain stable, continue to monitor (4) GERD (gastroesophageal reflux disease): Code(s): K21.9 - Gastro-esophageal reflux disease without esophagitis Status: Acute Assessment and Plan: Chronic with a history of dysphagia. EGD on 05/07/2024 showed unspecified esophagitis and hiatal hernia. Continue Protonix 40 mg daily Speech consulted Time Spent With Patient Time with patient: 25 - 35 minutes Subjective Date/time seen: 12/20/24 06:57 Interval history: 69 year old male with past medical history of multiple falls, hypertension, ost eoporosis, GERD, and chronic back pain s/p lumbar surgery presents to the hospital following a mechanical ground level fall resulting in left hip pain. No other injuries noted and no loss of consciousness. Patient is pleasant lying comfortably in bed. He states pain is well controlled on the current regimen. He denies any shooting pain or tingling/numbness to the lower extremity. He also denies any chest pain, shortness of breath, palpitations, nauesa/vomiting and abdominal pain. Review of Systems Review of Systems: All systems reviewed & are unremarkable except as noted in HPI and below Exam Narrative: AF HR 68 RR 14 Spo2 93 BP 122/72 General: well nourished, well-developed male in no acute respiratory distress who is nontoxic appearing, lying semi recumbent in bed. HEENT: Normocephalic. Atraumatic. Extraocular movement intact. Sclera clear and anicteric. No facial asymmetry. Chest: Lungs are clear to auscultation bilaterally. No wheezes or crackles. CV: Heart was regular rate and rhythm. Abd: Abdomen was soft. Nontender. Nondistended. Positive bowel sounds. Ext: No clubbing, cyanosis, or edema. DP pulses bilaterally. Left lower extremity externally rotated and shortened. Neuro: Patient is alert and oriented x4. Speech is clear. Objective Data Vital Signs Vital Signs: Vital Signs - 24 hr 12/19/24 21:28 12/19/24 21:50 12/20/24 05:31 Temperature 97.5 F L 98.5 F Pulse Rate 65 65 116 H Respiratory Rate 18 180 H 18 Blood Pressure 153/77 H 112/59 L Pulse Oximetry 100 100 93 Oxygen Delivery Room Air Intake/Output Intake/Output: Intake & Output 12/17/24 12/18/24 12/19/24 12/20/24 23:59 23:59 23:59 23:59 Output Total 250 Balance -250 Meds/Results Medications: Active Medications Generic Name Dose Route Start Last Admin Trade Name Freq PRN Reason Stop Dose Admin Acetaminophen 650 mg 12/20/24 00:00 12/20/24 05:40 Acetaminophen 325 Mg Tablet PO 650 mg Q6HR SIMIN Administration Acetaminophen/Codeine Phosphate 1 tab 12/19/24 22:55 Acetaminophen/Codeine (*Crx) 300/30 Mg Tablet PO TID PRN Pain Rated 4-6 Hydrocodone Bitart/Acetaminophen 1 tab 12/19/24 21:33 Hydrocodone/Acetaminophen (*Crx) 5-325 Mg Tablet PO Q4H PRN Moderate Pain (4-6) Cyclobenzaprine HCl 10 mg 12/19/24 22:55 12/20/24 05:40 Cyclobenzaprine Hcl 10 Mg Tablet PO 10 mg Q8HR SIMIN Administration Duloxetine HCl 60 mg 12/20/24 09:00 Duloxetine Hcl 60 Mg Capsule.Dr PO DAILY [facility] Gabapentin 300 mg 12/19/24 22:55 12/20/24 05:40 Gabapentin 300 Mg Capsule PO 300 mg Q8HR SIMIN Administration Lisinopril 20 mg 12/19/24 22:50 12/20/24 00:15 Lisinopril 20 Mg Tablet BY MOUTH 20 mg DAILY [facility] Administration Morphine Sulfate 30 mg 12/19/24 22:57 Morphine Sulfate (*Crx) 15 Mg Tab Ir PO Q8H PRN Pain Rated 7-10 Morphine Sulfate 4 mg 12/19/24 22:51 12/20/24 05:40 Morphine Sulfate (*Crx) 2 Mg/Ml Inj IV PUSH 4 mg Q2HR PRN Administration Pain Rated 7-10 Ondansetron HCl 4 mg 12/19/24 21:33 12/19/24 22:05 Ondansetron Inj 4 Mg/2 Ml Vial IV PUSH 4 mg Q6H PRN Administration Nausea And Vomiting Pantoprazole Sodium 40 mg 12/20/24 09:00 Pantoprazole 40 Mg Tablet PO QAM [facility] Senna/Docusate Sodium 1 tab 12/20/24 21:00 Senna/Docusate Sodium Tablet PO HS [facility] Trazodone HCl 100 mg 12/19/24 22:45 Trazodone Hcl 50 Mg Tablet BY MOUTH HS PRN insomnia Labs Labs: Laboratory Results - last 24 hr 12/19/24 12/20/24 22:06 03:59 WBC 5.6 4.3 L RBC 3.71 L 3.27 L Hgb 12.6 L 11.2 L Hct 38.5 L 34.2 L MCV 103.8 H 104.6 H MCH 34.0 34.3 H MCHC 32.7 32.7 RDW 13.2 13.0 Plt Count 112 L 98 L MPV 10.3 11.2 H Immature Gran % (Auto) 0.4 0.2 Neut % (Auto) 66.5 61.5 Lymph % (Auto) 18.6 23.5 [place] % (Auto) 13.0 H 12.2 H Eos % (Auto) 1.1 2.1 Baso % (Auto) 0.4 0.5 Lymph # (Auto) 1.04 1.00 [place] # (Auto) 0.7 H 0.5 Eos # (Auto) 0.1 0.1 Baso # (Auto) 0.0 0.0 Abs Immat Gran (auto) 0.02 0.01 Absolute Neuts (auto) 3.7 2.6 Absolute Nucleated RBC 0.000 0.000 Nucleated RBC % 0.0 0.0 % Immature Plt Fraction 3.8 Sodium 137 136 L Potassium 4.2 3.9 Chloride 104 107 Carbon Dioxide 27 24 Anion Gap 6 5 BUN 12 D 14 Creatinine 0.82 0.81 Estim Creat Clear Calc 64 65 Estimated GFR > 60 > 60 Glucose 91 100 Calcium 8.8 8.4 Quality VTE Prophylaxis VTE prophylaxis: mechanical ordered
[2024-12-20 08:01] LABS: Iron 45 ug/dL (49-181)
[2024-12-20 08:10] LABS: Percent Iron Saturation 17 % (20-50)
[2024-12-20 09:15] VITALS: BP 122/72; PULSE 68; RESP 14; TEMP 36.3; O2SAT 93
[2024-12-20 09:18] VITALS: PULSE 68; RESP 14; O2SAT 93
[2024-12-20] MEDS: DULoxetine HCL 60 MG CAPSULE.DR PO (09:18)
[2024-12-20] MEDS: PANTOPRAZOLE 40 MG TABLET PO (09:18)
--- NOTE | 2024-12-20 11:01 | P.CONOP_ITS ---
Assessment and Plan Assessment and plan (1) Fracture of left hip: Code(s): S72.002A - Fracture of unspecified part of neck of left femur, initial encounter for closed fracture Status: Acute Assessment and Plan: Await, medicine evaluation and anesthesia consultation Plan 69 yr old male with Left Hip Femoral Neck Fracture Displaced. - history of previous falls - ambulates with cane Recommend Left Hip Efraín-arthroplasty. - Risks benefits alternatives and complications discussed with patient. - they include but are not limited to: Infection, Nerve injury, blood vessel injury, limb length discrepancy, dislocation, dvt with possible pe. - patient agrees to proceed. - NPO after midnight - surgery Mondy as per anesthesia. History of Present Illness HPI Consult date: 12/20/24 Chief complaint: Left Hip Fracture Narrative: 69 yr old male with Left Hip Displaced Femoral Neck Fracture after a fall 12/18/24 at home, live in [facility] with . - reaching for something in a cabinet, carpet slipped out from under his foot. - second fall, apparently has balance issues and uses a cane to ambulate. - no chest pain or palpitations - no other complaints of extremity pain, except for Left Hip Groin area. 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) - activity - gardening Review of Systems 2 Review of Systems: All systems reviewed & are unremarkable except as noted in HPI and below PMFSH Past Medical History Medical History Bleeding disorder Lumbar spondylosis Pericardial effusion Pneumonia Restless leg syndrome Osteoporosis Hypertension Hepatitis Headache Cancer Arthritis Anxiety and depression Chronic back pain Surgical History Surgical History Status post lumbar surgery Previous back surgery Family History Family History Mother Cancer Diabetes mellitus Sibling Cancer Social History Social History Smoking packs per day: 0.25 Smoking cigarettes per day: 5.0 Years smoked: 50 Smoking pack-years: 12.50 Smoking status: Current every day smoker Tobacco type: cigarettes Smoking end date: 07/09/22 Alcohol intake: former Substance use: never Substance use type: does not use Do You Feel Safe in your Home?: Yes Lack of Transportation: YES Lack of Food: Never True Current Housing: I Have Housing Concerned About Future Housing: No Difficulty Paying Gas/Electric Bills: No Difficulty Paying for Meds: No Currently Unemployed: No Education: High School Diploma/GED Difficulty w/ Childcare or Family Care: No Living arrangements: with family Spiritual care concerns: No Meds Home Medications and Allergies Home Medications ?Medication ?Instructions ?Recorded ?Confirmed ?Type cyclobenzaprine 10 mg tablet 10 mg PO BID PRN Back Pain 05/30/22 12/19/24 History duloxetine 60 mg capsule,delayed 60 mg PO DAILY #90 caps 02/05/24 12/19/24 Rx release gabapentin 300 mg capsule 300 mg PO BID 02/05/24 12/19/24 History morphine 30 mg immediate release 30 mg PO Q8H PRN Pain 02/05/24 12/19/24 History tablet pantoprazole 40 mg tablet,delayed 40 mg PO QAM #30 tabs 03/17/24 12/19/24 Rx release acetaminophen 300 mg-codeine 60 mg 1 tablet PO TID PRN Pain 04/13/24 12/19/24 History tablet lisinopril 20 mg tablet See Rx Instructions .Route 08/06/24 12/19/24 Rx .COMPLEX #90 tabs trazodone 100 mg tablet See Rx Instructions .Route 11/03/24 12/19/24 Rx .COMPLEX #90 tabs Allergies Allergy/AdvReac Type Severity Reaction Status Date / Time NSAIDS (Non-Steroidal AdvReac Mild Abdominal Verified 12/19/24 21:54 Anti-Inflamma Pain ibuprofen AdvReac Sick Verified 12/19/24 21:54 feeling prednisone AdvReac Sick Verified 12/19/24 21:54 feeling Vital Signs Vital Signs - 24 hr 12/19/24 21:28 12/19/24 21:50 12/20/24 05:31 Temperature 36.4 C L 36.9 C Pulse Rate 65 65 116 H Respiratory Rate 18 180 H 18 Blood Pressure 153/77 H 112/59 L Pulse Oximetry 100 100 93 Oxygen Delivery Room Air 12/20/24 09:15 12/20/24 09:18 Temperature 36.3 C L Pulse Rate 68 68 Respiratory Rate 14 14 Blood Pressure 122/72 Pulse Oximetry 93 93 Oxygen Delivery Room Air Exam 2 Narrative: Left Lower extremity exam, shorted and externally rotated. Dorsiflexion at ankle 4/5. No swelling tenderness or deformity to bilateral ankles and knees and bilateral upper extremities. Results Labs 12/20/24 03:59 12/20/24 03:59 Labs: Abnormal lab results 12/19/24 12/20/24 12/20/24 Range/Units 22:06 03:55 03:59 WBC 4.3 L (4.5-10.0) K/mm3 RBC 3.71 L 3.27 L (4.6-6.20) M/mm3 Hgb 12.6 L 11.2 L (14.0-18.0) g/dL Hct 38.5 L 34.2 L (42.0-52.0) % MCV 103.8 H 104.6 H (80-100) fl MCH 34.3 H (26-34) pg Plt Count 112 L 98 L (150-375) k/mm3 MPV 11.2 H (7.4-10.4) fl Drew % (Auto) 13.0 H 12.2 H (2.6-8.5) % Drew # (Auto) 0.7 H (0.1-0.6) K/mm3 Sodium 136 L (137-145) mmol/L Iron 45 L (49-181) ug/dL TIBC 258 L (265-497) ug/dL % Saturation 17 L (20-50) % Vitamin B12 213.0 L (239-931) pg/mL H & H 12/19/24 12/20/24 Range/Units 22:06 03:59 Hgb 12.6 L 11.2 L (14.0-18.0) g/dL Hct 38.5 L 34.2 L (42.0-52.0) % All other labs normal.
--- NOTE | 2024-12-20 11:10 | P.CONOP_ITS ---
History of Present Illness HPI Consult date: 12/20/24 Chief complaint: Left Hip Fracture [facility] Past Medical History Medical History Bleeding disorder Lumbar spondylosis Pericardial effusion Pneumonia Restless leg syndrome Osteoporosis Hypertension Hepatitis Headache Cancer Arthritis Anxiety and depression Chronic back pain Surgical History Surgical History Status post lumbar surgery Previous back surgery Family History Family History Mother Cancer Diabetes mellitus Sibling Cancer Social History Social History Smoking packs per day: 0.25 Smoking cigarettes per day: 5.0 Years smoked: 50 Smoking pack-years: 12.50 Smoking status: Current every day smoker Tobacco type: cigarettes Smoking end date: 07/09/22 Alcohol intake: former Substance use: never Substance use type: does not use Do You Feel Safe in your Home?: Yes Lack of Transportation: YES Lack of Food: Never True Current Housing: I Have Housing Concerned About Future Housing: No Difficulty Paying Gas/Electric Bills: No Difficulty Paying for Meds: No Currently Unemployed: No Education: High School Diploma/GED Difficulty w/ Childcare or Family Care: No Living arrangements: with family Spiritual care concerns: No Meds Home Medications and Allergies Home Medications ?Medication ?Instructions ?Recorded ?Confirmed ?Type cyclobenzaprine 10 mg tablet 10 mg PO BID PRN Back Pain 05/30/22 12/19/24 History duloxetine 60 mg capsule,delayed 60 mg PO DAILY #90 caps 02/05/24 12/19/24 Rx release gabapentin 300 mg capsule 300 mg PO BID 02/05/24 12/19/24 History morphine 30 mg immediate release 30 mg PO Q8H PRN Pain 02/05/24 12/19/24 History tablet pantoprazole 40 mg tablet,delayed 40 mg PO QAM #30 tabs 03/17/24 12/19/24 Rx release acetaminophen 300 mg-codeine 60 mg 1 tablet PO TID PRN Pain 04/13/24 12/19/24 History tablet lisinopril 20 mg tablet See Rx Instructions .Route 08/06/24 12/19/24 Rx .COMPLEX #90 tabs trazodone 100 mg tablet See Rx Instructions .Route 11/03/24 12/19/24 Rx .COMPLEX #90 tabs Allergies Allergy/AdvReac Type Severity Reaction Status Date / Time NSAIDS (Non-Steroidal AdvReac Mild Abdominal Verified 12/19/24 21:54 Anti-Inflamma Pain ibuprofen AdvReac Sick Verified 12/19/24 21:54 feeling prednisone AdvReac Sick Verified 12/19/24 21:54 feeling Vital Signs Vital Signs - 24 hr 12/19/24 21:28 12/19/24 21:50 12/20/24 05:31 Temperature 36.4 C L 36.9 C Pulse Rate 65 65 116 H Respiratory Rate 18 180 H 18 Blood Pressure 153/77 H 112/59 L Pulse Oximetry 100 100 93 Oxygen Delivery Room Air 12/20/24 09:15 12/20/24 09:18 Temperature 36.3 C L Pulse Rate 68 68 Respiratory Rate 14 14 Blood Pressure 122/72 Pulse Oximetry 93 93 Oxygen Delivery Room Air Results Labs 12/20/24 03:59 12/20/24 03:59 Labs: Abnormal lab results 12/19/24 12/20/24 12/20/24 Range/Units 22:06 03:55 03:59 WBC 4.3 L (4.5-10.0) K/mm3 RBC 3.71 L 3.27 L (4.6-6.20) M/mm3 Hgb 12.6 L 11.2 L (14.0-18.0) g/dL Hct 38.5 L 34.2 L (42.0-52.0) % MCV 103.8 H 104.6 H (80-100) fl MCH 34.3 H (26-34) pg Plt Count 112 L 98 L (150-375) k/mm3 MPV 11.2 H (7.4-10.4) fl [place] % (Auto) 13.0 H 12.2 H (2.6-8.5) % [place] # (Auto) 0.7 H (0.1-0.6) K/mm3 Sodium 136 L (137-145) mmol/L Iron 45 L (49-181) ug/dL TIBC 258 L (265-497) ug/dL % Saturation 17 L (20-50) % Vitamin B12 213.0 L (239-931) pg/mL H & H 12/19/24 12/20/24 Range/Units 22:06 03:59 Hgb 12.6 L 11.2 L (14.0-18.0) g/dL Hct 38.5 L 34.2 L (42.0-52.0) % All other labs normal.
--- NOTE | 2024-12-20 13:54 | PCSTNOTE ---
Please refer to the Bedside Swallow Evaluation in the EMR. Please note, silent aspiration cannot be ruled out at bedside. This 69 year old male patient was admitted to [facility] on 12/19/24 due to L leg pain. A Bedside Swallow Evaluation (BSE) was ordered this date due to the pt stating that it feels like something is getting stuck and pointing to his chest. The pt verbalized that meats such as steak and chicken give him the most trouble. An oral motor exam was completed. The pt demonstrates appropriate range of mobility and strength for oral intake. The pt is edentulous and stated that he does not have dentures because his old ones don't fit anymore . Pt reports that he continues to eat all consistencies and has no trouble. Trials of thin liquid (water), mixed consistency (fruit cocktail), puree (pudding), and solids (kp cracker) were administered at bedside via spoon, straw, and hand. Throughout all trials of different consistencies, the pt demonstrated no s/s of aspiration. The pt?s vocal quality remained clear after all trials and the pt did not cough/throat clear. Oral transit was timely. No oral residue observed. Laryngeal elevation was adequate and timely for all swallows. Please note that silent aspiration cannot be ruled out at bedside. Given the results of this assessment, it is recommended this pt receive an oral diet of regular solids (IDDSI Level 7) and thin liquids (IDDSI Level 1). Due to being edentulous, ST offered the pt an oral diet of soft and bite-sized (IDDSI Level 6) or minced and moist (IDDSI Level 5), but the pt stated that he wants a regular diet at this time. It is additionally recommended that the pt follow these standard swallowing precautions: Small bites/sips and sit upright during meals. No further ST is warranted at this time. Dr. Mtz and ALANNAH Medina were notified of BSE results and recommendations. Thank you for this referral.
[2024-12-20 14:00] VITALS: BP 92/60; PULSE 64; RESP 12; TEMP 36.6; O2SAT 94
[2024-12-20 20:05] VITALS: BP 118/69; PULSE 79; RESP 17; TEMP 36.6; O2SAT 97
[2024-12-20] MEDS: HYDROcodone/acetaminophen (*CRX) 5-325 MG TABLET 1 TAB PO (20:40)
[2024-12-20] MEDS: SENNA/DOCUSATE SODIUM TABLET 1 TAB PO (20:40)
[2024-12-20] MEDS: traZODone HCL 50 MG TABLET 100 MG BY MOUTH (20:42)
[2024-12-21] VITALS (14 sets, daily range): BP systolic 101–144; BP diastolic 56–96; PULSE 66–106; RESP 12–18; TEMP 36.1–36.8; O2SAT 95–100
[2024-12-21] MEDS: MORPHINE SULFATE (*CRX) 2 MG/ML INJ 4 MG IV PUSH ×4 (04:45→13:09)
[2024-12-21 05:14] LABS: Hematocrit 36.2 % (42.0-52.0); Hemoglobin 11.7 g/dL (14.0-18.0); Immature Platelet Fraction Pct 4.5 % (0.9-11.2); Mean Corpuscular HGB Conc 32.3 g/dl (32-36); Mean Corpuscular Volume 105.2 fl (80-100); Mean Platelet Volume 11.1 fl (7.4-10.4); Platelet Count Result 99 k/mm3 (150-375); Red Blood Count 3.44 M/mm3 (4.6-6.20); Red Cell Distribution Width 13.1 % (11.5-14.5); White Blood Count 4.6 K/mm3 (4.5-10.0)
[2024-12-21] MEDS: ACETAMINOPHEN 325 MG TABLET 650 MG PO ×3 (05:17→23:40)
[2024-12-21] MEDS: CYCLOBENZAPRINE HCL 10 MG TABLET PO ×3 (05:17→21:05)
[2024-12-21] MEDS: GABAPENTIN 300 MG CAPSULE PO ×3 (05:17→21:05)
[2024-12-21 05:28] LABS: Alanine Aminotransferase 14 U/L (6-50); Albumin Level 3.2 g/dL (3.5-5.1); Alkaline Phosphatase 54 U/L (38-126); Anion Gap 6 mmol/L (4-12); Aspartate Amino Transferase 16 U/L (17-59); Bilirubin,Total 0.4 mg/dL (0.2-1.3); Blood Urea Nitrogen 15 mg/dL (9-20); Calcium 8.4 mg/dL (8.4-10.2); Carbon Dioxide 27 mmol/L (22-30); Chloride 105 mmol/L (98-107); Estimated CRCL calculation 69 ml/min; Estimated Glomerular Filt Rate > 60; Glucose 97 mg/dL (65-110); Potassium 4.7 mmol/L (3.4-5.0); Sodium 138 mmol/L (137-145)
--- NOTE | 2024-12-21 07:08 | PM.IMPN ---
Progress Note: A&P Assessment and Plan (1) Fall: Code(s): W19.XXXA - Unspecified fall, initial encounter Status: Acute Assessment and Plan: Mechanical ground level fall resulting in left hip pain. Not on anticoagulation. Uses cane to ambulate. Patient had a fall in August down a flight of stairs that he states was 2/2 dehydration. He was transferred to [facility] for neurogenic shock at that time. He denies any dizziness/lightheadedness/palpitations or recnt falls since that time. - Hip/pelvis XR: Fracture of left femoral neck - Lumbar spine XR: No acute osseous abnormality of lumbar spine however there are postoperative changes and multilevel degenerative disc disease - See plan below (2) Fracture of femoral neck, left: Qualifiers: Encounter type: initial encounter Fracture type: closed Qualified Code(s): S72.002A - Fracture of unspecified part of neck of left femur, initial encounter for closed fracture Code(s): S72.002A - Fracture of unspecified part of neck of left femur, initial encounter for closed fracture Status: Inactive Assessment and Plan: - Hip/pelvis XR: Fracture of left femoral neck - SCD for DVT ppx - PT/OT per ortho recommendations following surgery - Analgesics - Ortho consulted Plan for left hip ciera arthroplasty on today, 12/[address] Carlos (3) Hypertension: Code(s): I10 - Essential (primary) hypertension Status: Acute Assessment and Plan: Chronic, continue home medications - lisinopril 20 mg daily - blood pressures remain stable, continue to monitor (4) GERD (gastroesophageal reflux disease): Code(s): K21.9 - Gastro-esophageal reflux disease without esophagitis Status: Acute Assessment and Plan: Chronic with a history of dysphagia. EGD on 05/07/2024 showed unspecified esophagitis and hiatal hernia. Continue Protonix 40 mg daily Speech consulted, bedside swallow unremarkable (5) Iron deficiency anemia: Code(s): D50.9 - Iron deficiency anemia, unspecified Status: Acute Assessment and Plan: Iron panel: iron 45, TIBC 258, % sat 17 Started on iron supplementation (6) B12 deficiency anemia: Code(s): D51.9 - Vitamin B12 deficiency anemia, unspecified Status: Acute Assessment and Plan: B12 213. Given 1000 mg IM x1 and started on 1000 mg PO daily Time Spent With Patient Time with patient: 25 - 35 minutes Subjective Date/time seen: 12/21/24 07:08 Interval history: 69 year old male with past medical history of multiple falls, hypertension, osteoporosis, GERD, and chronic back pain s/p lumbar surgery presents to the hospital following a mechanical ground level fall resulting in left hip pain. No other injuries noted and no loss of consciousness. Patient is pleasant lying comfortably in bed. He states that pain is well controlled and has no other complaints denying chest pain, shortness of breath, palpitations, nausea/vomiting, abdominal pain, and tingling/numbness to the lower extremity. Review of Systems Review of Systems: All systems reviewed & are unremarkable except as noted in HPI and below Exam Narrative: AF HR 82 RR 16 Spo2 95 BP 141/81 General: male in no acute respiratory distress who is nontoxic appearing, lying semi recumbent in bed. HEENT: Normocephalic. Atraumatic. Extraocular movement intact. Sclera clear and anicteric. No facial asymmetry. Chest: Lungs are clear to auscultation bilaterally. No wheezes or crackles. CV: Heart was regular rate and rhythm. Abd: Abdomen was soft. Nontender. Nondistended. Positive bowel sounds. Ext: No clubbing, cyanosis, or edema. DP pulses bilaterally. Left lower extremity externally rotated and shortened. Neuro: Patient is alert and oriented x4. Speech is clear. Objective Data Vital Signs Vital Signs: Vital Signs - 24 hr 12/20/24 09:15 12/20/24 09:18 12/20/24 14:00 Temperature 97.4 F L 97.9 F Pulse Rate 68 68 64 Respiratory Rate 14 14 12 Blood Pressure 122/72 92/60 L Pulse Oximetry 93 93 94 Oxygen Delivery Room Air 12/20/24 20:05 12/20/24 20:47 12/21/24 06:00 Temperature 97.8 F 98.2 F Pulse Rate 79 71 Respiratory Rate 17 18 Blood Pressure 118/69 143/87 H Pulse Oximetry 97 97 Oxygen Delivery Room Air Intake/Output Intake/Output: Intake & Output 12/18/24 12/19/24 12/20/24 12/21/24 23:59 23:59 23:59 23:59 Intake Total 1260 250 Output Total 525 425 Balance 735 -175 Meds/Results Medications: Active Medications Generic Name Dose Route Start Last Admin Trade Name Freq PRN Reason Stop Dose Admin Acetaminophen 650 mg 12/20/24 00:00 12/21/24 05:17 Acetaminophen 325 Mg Tablet PO 650 mg Q6HR SIMIN Administration Acetaminophen/Codeine Phosphate 1 tab 12/19/24 22:55 Acetaminophen/Codeine (*Crx) 300/30 Mg Tablet PO TID PRN Pain Rated 4-6 Hydrocodone Bitart/Acetaminophen 1 tab 12/19/24 21:33 12/20/24 20:40 Hydrocodone/Acetaminophen (*Crx) 5-325 Mg Tablet PO 1 tab Q4H PRN Administration Moderate Pain (4-6) Cyclobenzaprine HCl 10 mg 12/19/24 22:55 12/21/24 05:17 Cyclobenzaprine Hcl 10 Mg Tablet PO 10 mg Q8HR SIMIN Administration Duloxetine HCl 60 mg 12/20/24 09:00 12/20/24 09:18 Duloxetine Hcl 60 Mg Capsule.Dr PO 60 mg DAILY SIMIN Administration Gabapentin 300 mg 12/19/24 22:55 12/21/24 05:17 Gabapentin 300 Mg Capsule PO 300 mg Q8HR SIMIN Administration Lisinopril 20 mg 12/19/24 22:50 12/20/24 09:18 Lisinopril 20 Mg Tablet BY MOUTH 20 mg DAILY SIMIN Administration Morphine Sulfate 30 mg 12/19/24 22:57 Morphine Sulfate (*Crx) 15 Mg Tab Ir PO Q8H PRN Pain Rated 7-10 Morphine Sulfate 4 mg 12/19/24 22:51 12/21/24 04:45 Morphine Sulfate (*Crx) 2 Mg/Ml Inj IV PUSH 4 mg Q2HR PRN Administration Pain Rated 7-10 Ondansetron HCl 4 mg 12/19/24 21:33 12/19/24 22:05 Ondansetron Inj 4 Mg/2 Ml Vial IV PUSH 4 mg Q6H PRN Administration Nausea And Vomiting Pantoprazole Sodium 40 mg 12/20/24 09:00 12/20/24 09:18 Pantoprazole 40 Mg Tablet PO 40 mg QAM SIMIN Administration Senna/Docusate Sodium 1 tab 12/20/24 21:00 12/20/24 20:40 Senna/Docusate Sodium Tablet PO 1 tab HS SIMIN Administration Trazodone HCl 100 mg 12/19/24 22:45 12/20/24 20:42 Trazodone Hcl 50 Mg Tablet BY MOUTH 100 mg HS PRN Administration insomnia Labs Labs: Laboratory Results - last 24 hr 12/20/24 12/21/24 03:55 04:25 Sodium 138 Potassium 4.7 Chloride 105 Carbon Dioxide 27 Anion Gap 6 BUN 15 Creatinine 0.75 Estim Creat Clear Calc 69 Estimated GFR > 60 Glucose 97 Calcium 8.4 Iron 45 L TIBC 258 L % Saturation 17 L Total Bilirubin 0.4 AST 16 L ALT 14 Alkaline Phosphatase 54 Total Protein 6.0 L Albumin 3.2 L Vitamin B12 213.0 L Folate 7.0 Quality VTE Prophylaxis VTE prophylaxis: mechanical ordered
[2024-12-21] MEDS: DULoxetine HCL 60 MG CAPSULE.DR PO (08:18)
--- NOTE | 2024-12-21 09:32 | PC.NURSE ---
call from pharmacy, type and cross match blood order entered in error under pharmacy tab, re-entered under lab
--- NOTE | 2024-12-21 14:39 | WPDANESEPPF ---
Anes - Initial Pre Proc Eval Procedure: Operation Date: 12/21/24 15:00 Proposed Procedures p Left Bipolar Hip Replacement - Karl Carlos MD Date/Time: 12/21/24 14:39 Surgeon: Yahaira Pre Op Diagnosis: Left Hip Fracture Patient Data Age: 69 Gender: M Height: 1.63 m Weight: 67.3 kg Last Vital Signs Temp 36.6 C 12/21/24 14:10 Pulse 66 12/21/24 14:10 Resp 18 12/21/24 14:10 BP 144/72 H 12/21/24 14:10 Pulse Ox 99 12/21/24 14:10 O2 Del Method Room Air 12/21/24 14:10 Allergies Allergy/AdvReac Type Severity Reaction Status Date / Time NSAIDS (Non-Steroidal AdvReac Mild Abdominal Verified 12/21/24 14:15 Anti-Inflamma Pain ibuprofen AdvReac Sick Verified 12/21/24 14:15 feeling prednisone AdvReac Sick Verified 12/21/24 14:15 feeling Home Medications ?Medication ?Instructions ?Recorded ?Confirmed ?Type cyclobenzaprine 10 mg tablet 10 mg PO BID PRN Back Pain 05/30/22 12/19/24 History duloxetine 60 mg capsule,delayed 60 mg PO DAILY #90 caps 02/05/24 12/19/24 Rx release gabapentin 300 mg capsule 300 mg PO BID 02/05/24 12/19/24 History morphine 30 mg immediate release 30 mg PO Q8H PRN Pain 02/05/24 12/19/24 History tablet pantoprazole 40 mg tablet,delayed 40 mg PO QAM #30 tabs 03/17/24 12/19/24 Rx release acetaminophen 300 mg-codeine 60 mg 1 tablet PO TID PRN Pain 04/13/24 12/19/24 History tablet lisinopril 20 mg tablet See Rx Instructions .Route 08/06/24 12/19/24 Rx .COMPLEX #90 tabs trazodone 100 mg tablet See Rx Instructions .Route 11/03/24 12/19/24 Rx .COMPLEX #90 tabs Laboratory Tests 12/21/24 12/21/24 04:25 09:34 WBC 4.6 K/mm3 (4.5-10.0) RBC 3.44 L M/mm3 (4.6-6.20) Hgb 11.7 L g/dL (14.0-18.0) Hct 36.2 L % (42.0-52.0) MCV 105.2 H fl (80-100) MCH 34.0 pg (26-34) MCHC 32.3 g/dl (32-36) RDW 13.1 % (11.5-14.5) Plt Count 99 L k/mm3 (150-375) MPV 11.1 H fl (7.4-10.4) % Immature Plt Fraction 4.5 % (0.9-11.2) Sodium 138 mmol/L (137-145) Potassium 4.7 mmol/L (3.4-5.0) Chloride 105 mmol/L (98-107) Carbon Dioxide 27 mmol/L (22-30) Anion Gap 6 mmol/L (4-12) BUN 15 mg/dL (9-20) Creatinine 0.75 mg/dL (0.7-1.3) Estim Creat Clear Calc 69 ml/min Estimated GFR > 60 (59 - ) Glucose 97 mg/dL (65-110) Calcium 8.4 mg/dL (8.4-10.2) Total Bilirubin 0.4 mg/dL (0.2-1.3) AST 16 L U/L (17-59) ALT 14 U/L (6-50) Alkaline Phosphatase 54 U/L (38-126) Total Protein 6.0 L g/dL (6.3-8.2) Albumin 3.2 L g/dL (3.5-5.1) Blood Type B Positive Antibody Screen Negative Patient hx anesthesia problems: none Family hx anesthesia problems: none Results Review: All pre-operative results and documents have been reviewed as part of the pre-operative evaluation. [facility] Past Medical History Medical History Bleeding disorder Lumbar spondylosis Pericardial effusion Pneumonia Restless leg syndrome Osteoporosis Hypertension Hepatitis Headache Cancer Arthritis Anxiety and depression Chronic back pain Surgical History Surgical History Status post lumbar surgery Previous back surgery Family History Family History Mother Cancer Diabetes mellitus Sibling Cancer Social History Social History Smoking packs per day: 0.25 Smoking cigarettes per day: 5.0 Years smoked: 50 Smoking pack-years: 12.50 Smoking status: Current every day smoker Tobacco type: cigarettes Smoking end date: 07/09/22 Alcohol intake: former Substance use: never Substance use type: does not use Do You Feel Safe in your Home?: Yes Lack of Transportation: YES Lack of Food: Never True Current Housing: I Have Housing Concerned About Future Housing: No Difficulty Paying Gas/Electric Bills: No Difficulty Paying for Meds: No Currently Unemployed: No Education: High School Diploma/GED Difficulty w/ Childcare or Family Care: No Living arrangements: with family Spiritual care concerns: No Anes - Eval Final PreProcedure Day of Procedure 12/21/24 14:39 Patient weight: overweight Heart: regular rate and rhythm Lungs: clear to auscultation Airway: Mallampati scale class II Neurological: alert and oriented Last oral intake: >/= 8 hours ASA classification: III Emergent: no Anesthetic plan: proceed Anesthesia type and monitoring: general ETT and standard monitoring Results Review: All pre-operative results and documents have been reviewed as part of the pre-operative evaluation. Informed Consent: The patient's anesthetic plan and its attendant risks and benefits were discussed with the patient/family/POA. Questions were solicited and answers provided to the satisfaction of the patient/family/POA.
[2024-12-21] MEDS: LACTATED RINGERS 1,000 ML 30 ML IV CONT ×2 (15:14→17:21)
--- NOTE | 2024-12-21 15:19 | WPDHPUPDATE1 ---
History and Physical Update Update Date/Time: 12/21/24 15:19 History and Physical has been reviewed, including an updated exam of the patient. There are NO changes in the patient's condition. Risks, benefits, and alternatives have been discussed and questions answered. Patient agrees to proceed with procedure. The risks included are not limited to infection, normal blood vessel injury, DVT, limb-length discrepancy, dislocation, and the patient agrees to proceed. The procedure is a partial left hip replacement.
[2024-12-21] MEDS: TRANEXAMIC ACID 1,000MG/ISO100 1,000 MG/100 ML BAG 200 MG IVPB (15:24)
[2024-12-21] MEDS: ceFAZolin 2 GM/D5W 50 ML 2 GM/50 ML BAG IVPB ×2 (15:50→23:40)
--- NOTE | 2024-12-21 16:13 | SUR.OPER ---
Bovie pad placed on patient's left upper shoulder area per Dr. Gallardo's request
[2024-12-21] MEDS: LIDO 1%/EPINEPHRINE 1:100,000 20 ML VIAL 30 ML INFILTRATE (16:21)
--- NOTE | 2024-12-21 17:41 | P.OP_ITS ---
Procedure Note - Detailed Date of Procedure 12/21/24 Pre-op Diagnosis Left Hip Femoral Neck Fracture Post-op Diagnosis Same Procedure Performed Open Treatment of Left Hip Femoral Neck Fracture Surgeon Karl Carlos MD Radial Drill Operator Maximino Anesthesia General Indications Left Hip Displaced Femoral Neck Fracture Findings Displaced Left Hip Femoral Neck Fracture Description of Procedure The patient is a 69-year-old male presented with a left hip displaced femoral neck fracture as a transfer from the emergency room with [facility] the patient fell landing onto his left buttock on trying to reach for something in the cabinet at home he does have a history of frequent falls in the past. He ambulates with a cane and has chronic back pain. He has had multiple lumbar surgeries and has been disabled for over 20 years. The patient was advised of the risks benefits alternatives and complications of a left hip hemiarthroplasty and he agreed to proceed the risks include but not limited to infection or blood vessel injury DVT limb length discrepancy dislocation as well as sciatic nerve injury resulting in a footdrop and he agreed to proceed. After obtaining consent the patient was brought to the operating placed in the supine position which time he underwent general anesthesia. He was in place and in the lateral decubitus position with the left side up. All bony prominences were padded including the contralateral right knee to ensure that the peroneal nerve was not compressed upon. There was also a axillary roll placed. The pegboard was then secured to the patient was in the secure lateral decubitus position left side up. The left hip was then prepped and draped in standard sterile fashion. A time-out was performed to verify correct procedure correct patient correct site of surgery and the fact that there was 2 g of Ancef administered within 1 hour of procedure IV. After this was done I then proceeded to make a lateral incision patient's left hip carried this incision posteriorly. I then identified the ITB band sharply incised this I easily identified the short external rotators. Then tagged piriformis as well as the capsule capsulotomy and then I dislocated the hip. Does easily identified at the fracture site. I then removed the head measured this at a size of 53. I then proceeded to irrigate copiously for my neck cut at approximately 10 mm. I then proceeded to broach up to a size 7 making sure to obtain correct anteversion. After this was done and then trialed. I trialed with a standard neck and standard offset. I noted the patient had excellent limb lengths on the table and excellent stability at flexion to 90? and internal rotation to 80? limb lengths were equal on the table also. I then proceeded to irrigate copiously I placed the actual implant in place with a size 7 femoral component a Valeria Accolate 2 stem 132 degree neck angle with a V40 head at 28 mm in diameter and +0 neck length and the bipolar component was placed at that was a size of 53 mm. I had the exact same stability profile after the actual implants were placed. I then irrigated copiously and controlled the bleeding with a cautery and then proceeded to repair the capsulotomy using Ethibond suture and then repaired the piriformis as well as the capsule to the posterior aspect of the patient's hip using 2 drill holes. I then irrigated copiously i dentified the sciatic nerve which was protected during the entire procedure. I then proceeded to close the ITB band using 1. Vicryl suture. I then irrigated copiously and then I closed skin using dermal 2-0 Vicryl suture and then I placed terry. The bone the incision was bandaged sterile fashion and transferred to recovery stable condition. Will observe posterior hip precautions. Estimated Blood Loss 200 Urine Output 425 Drains No Packing No Pathology None sent Complications No immediate complications Condition Stable Disposition PACU
[2024-12-21] MEDS: fentaNYL CITRATE INJ (*CRX) 100 MCG/2 ML VIAL 25 MCG IV PUSH ×8 (17:56→18:18)
[2024-12-21] MEDS: oxyCODONE HCL (*CRX) 5 MG TAB IR PO (20:11)
[2024-12-21] MEDS: traZODone HCL 50 MG TABLET 100 MG BY MOUTH (21:05)
[2024-12-21] MEDS: HYDROmorphone HCL INJ (*CRX) 2 MG/ML VIAL 1 MG IV PUSH (22:30)
[2024-12-22] VITALS (8 sets, daily range): BP systolic 101–140; BP diastolic 60–89; PULSE 70–89; RESP 16–19; TEMP 36.2–36.7; O2SAT 95–100
[2024-12-22] MEDS: HYDROmorphone HCL INJ (*CRX) 2 MG/ML VIAL 1 MG IV PUSH ×5 (04:27→22:08)
[2024-12-22 05:25] LABS: Hematocrit 38.2 % (42.0-52.0); Hemoglobin 12.6 g/dL (14.0-18.0); Immature Granulocyte Absolute 0.05 K/mm3 (0.00-0.031); Immature Granulocyte Percent A 0.7 % (0-0.5); Lymphocytes Absolute Auto 0.55 K/mm3 (0.9-3.2); Lymphocytes Percent Auto 7.2 % (18.3-44.2); Mean Corpuscular Hemoglobin 33.8 pg (26-34); Mean Corpuscular Volume 102.4 fl (80-100); Mean Platelet Volume 10.8 fl (7.4-10.4); Monocytes Absolute Auto 0.4 K/mm3 (0.1-0.6); Monocytes Percent Auto 5.2 % (2.6-8.5); Neutrophils Absolute Auto 6.7 K/mm3 (1.3-6.7); Neutrophils Percent Auto 86.9 % (45.5-73.1); Platelet Count Result 143 k/mm3 (150-375); Red Blood Count 3.73 M/mm3 (4.6-6.20); Red Cell Distribution Width 12.7 % (11.5-14.5); White Blood Count 7.7 K/mm3 (4.5-10.0)
[2024-12-22 05:27] LABS: Alanine Aminotransferase 20 U/L (6-50); Albumin Level 3.7 g/dL (3.5-5.1); Alkaline Phosphatase 57 U/L (38-126); Anion Gap 8 mmol/L (4-12); Aspartate Amino Transferase 27 U/L (17-59); Bilirubin,Total 0.7 mg/dL (0.2-1.3); Blood Urea Nitrogen 14 mg/dL (9-20); Calcium 8.7 mg/dL (8.4-10.2); Carbon Dioxide 28 mmol/L (22-30); Chloride 103 mmol/L (98-107); Estimated CRCL calculation 72 ml/min; Estimated Glomerular Filt Rate > 60; Glucose 134 mg/dL (65-110); Potassium 3.9 mmol/L (3.4-5.0); Sodium 139 mmol/L (137-145)
[2024-12-22] MEDS: CYCLOBENZAPRINE HCL 10 MG TABLET PO ×3 (05:37→21:00)
[2024-12-22] MEDS: ACETAMINOPHEN 325 MG TABLET 650 MG PO ×3 (05:37→17:44)
[2024-12-22] MEDS: GABAPENTIN 300 MG CAPSULE PO ×3 (05:37→21:00)
[2024-12-22] MEDS: HYDROcodone/acetaminophen (*CRX) 5-325 MG TABLET 1 TAB PO ×5 (05:40→20:56)
--- NOTE | 2024-12-22 07:39 | P.PNIM_ITS ---
Progress Note: A&P Assessment and Plan (1) Fall: Code(s): W19.XXXA - Unspecified fall, initial encounter Status: Acute Assessment and Plan: Mechanical ground level fall resulting in left hip pain. Not on anticoagulation. Uses cane to ambulate. Patient had a fall in August down a flight of stairs that he states was 2/2 dehydration. He was transferred to [facility] for neurogenic shock at that time. He denies any dizziness/lightheadedness/palpitations or recnt falls since that time. - Hip/pelvis XR: Fracture of left femoral neck - Lumbar spine XR: No acute osseous abnormality of lumbar spine however there are postoperative changes and multilevel degenerative disc disease - See plan below (2) Fracture of femoral neck, left: Qualifiers: Encounter type: initial encounter Fracture type: closed Qualified Code(s): S72.002A - Fracture of unspecified part of neck of left femur, initial encounter for closed fracture Code(s): S72.002A - Fracture of unspecified part of neck of left femur, initial encounter for closed fracture Status: Inactive Assessment and Plan: - Hip/pelvis XR: Fracture of left femoral neck - ASA for DVT ppx per ortho - PT/OT per ortho recommendations following surgery: FWB - Analgesics - Ortho consulted S/p open treatment of left hip femoral neck fracture on 12/[address] Carlos (3) Hypertension: Code(s): I10 - Essential (primary) hypertension Status: Acute Assessment and Plan: Chronic, continue home medications - lisinopril 20 mg daily - blood pressures remain stable, continue to monitor (4) GERD (gastroesophageal reflux disease): Code(s): K21.9 - Gastro-esophageal reflux disease without esophagitis Status: Acute Assessment and Plan: Chronic with a history of dysphagia. EGD on 05/07/2024 showed unspecified esophagitis and hiatal hernia. Continue Protonix 40 mg daily Speech consulted, bedside swallow unremarkable (5) Iron deficiency anemia: Code(s): D50.9 - Iron deficiency anemia, unspecified Status: Acute Assessment and Plan: Iron panel: iron 45, TIBC 258, % sat 17 Started on iron supplementation (6) B12 deficiency anemia: Code(s): D51.9 - Vitamin B12 deficiency anemia, unspecified Status: Acute Assessment and Plan: B12 213. Given 1000 mg IM x1 and started on 1000 mg PO daily Time Spent With Patient Time with patient: 25 - 35 minutes Subjective Date/time seen: 12/22/24 07:39 Interval history: 69 year old male with past medical history of multiple falls, hypertension, osteoporosis, GERD, and chronic back pain s/p lumbar surgery presents to the hospital following a mechanical ground level fall resulting in left hip pain. No other injuries noted and no loss of consciousness. Patient is pleasant lying comfortably in bed. He states that pain is well controlled on the current regimen. He is working well with therapy and has no complaints denying chest pain, shortness a breath, palpitations, nausea/vomiting, abdominal pain, and tingling/numbness/shooting pain to the lower extremity. Discussed patient with Ortho Dr. Carlos who wishes for him to stay inpatient again overnight for further physical therapy and monitoring. He also wanted aspirin 325 daily for DVT prophylaxis which has been ordered. Review of Systems Review of Systems: All systems reviewed & are unremarkable except as noted in HPI and below Exam Narrative: AF HR 79 RR16 SPO2 97 BP 119/71 General: male in no acute respiratory distress who is nontoxic appearing, lying semi recumbent in bed. HEENT: Normocephalic. Atraumatic. Extraocular movement intact. Sclera clear and anicteric. No facial asymmetry. Chest: Lungs are clear to auscultation bilaterally. No wheezes or crackles. CV: Heart was regular rate and rhythm. Abd: Abdomen was soft. Nontender. Nondistended. Positive bowel sounds. Ext: No clubbing, cyanosis, or edema. DP pulses bilaterally. Sensation intact. Dressing clean/dry/intact. Neuro: Patient is alert and oriented x4. Speech is clear. Objective Data Vital Signs Vital Signs: Vital Signs - 24 hr 12/21/24 08:15 12/21/24 08:54 12/21/24 10:44 Temperature 97.8 F 97.6 F Pulse Rate 67 82 Respiratory Rate 16 16 Blood Pressure 141/90 H 141/81 H Pulse Oximetry 95 98 95 Oxygen Delivery Room Air Oxygen Flow Rate 12/21/24 14:10 12/21/24 17:21 12/21/24 17:30 Temperature 97.9 F 97 F L Pulse Rate 66 83 77 Respiratory Rate 18 12 16 Blood Pressure 144/72 H 106/82 126/78 Pulse Oximetry 99 100 100 Oxygen Delivery Room Air Simple Face Mask Simple Face Mask Oxygen Flow Rate 10 10 12/21/24 17:45 12/21/24 18:00 12/21/24 18:13 Temperature 97.2 F L Pulse Rate 72 75 85 Respiratory Rate 12 13 16 Blood Pressure 121/96 H 127/72 117/71 Pulse Oximetry 100 100 97 Oxygen Delivery Nasal Cannula Nasal Cannula Oxygen Flow Rate 2 2 12/21/24 18:15 12/21/24 19:13 12/21/24 20:00 Temperature 97.7 F Pulse Rate 79 86 Respiratory Rate 17 18 Blood Pressure 118/64 102/56 L Pulse Oximetry 100 97 Oxygen Delivery Nasal Cannula Room Air Oxygen Flow Rate 2 12/21/24 20:54 12/21/24 23:13 12/22/24 03:13 Temperature 97.7 F 98.0 F Pulse Rate 106 H 89 Respiratory Rate 18 18 Blood Pressure 101/64 114/89 Pulse Oximetry 96 96 97 Oxygen Delivery Nasal Cannula Oxygen Flow Rate 1 Intake/Output Intake/Output: Intake & Output 12/19/24 12/20/24 12/21/24 12/22/24 23:59 23:59 23:59 23:59 Intake Total 1260 600 390 Output Total 525 850 Balance 735 -250 390 Meds/Results Medications: Active Medications Generic Name Dose Route Start Last Admin Trade Name Dandreq PRN Reason Stop Dose Admin Acetaminophen 650 mg 12/21/24 18:00 12/22/24 05:37 Acetaminophen 325 Mg Tablet PO 650 mg Q6HR [facility] Administration Acetaminophen/Codeine Phosphate 1 tab 12/19/24 22:55 Acetaminophen/Codeine (*Crx) 300/30 Mg Tablet PO TID PRN Pain Rated 4-6 Hydrocodone Bitart/Acetaminophen 1 tab 12/19/24 21:33 12/22/24 05:40 Hydrocodone/Acetaminophen (*Crx) 5-325 Mg Tablet PO 1 tab Q4H PRN Administration Moderate Pain (4-6) Cyanocobalamin 1,000 mcg 12/22/24 09:00 Cyanocobalamin 1,000 Mcg Tablet PO QAM [facility] Cyclobenzaprine HCl 10 mg 12/19/24 22:55 12/22/24 05:37 Cyclobenzaprine Hcl 10 Mg Tablet PO 10 mg Q8HR [facility] Administration Duloxetine HCl 60 mg 12/20/24 09:00 12/21/24 08:18 Duloxetine Hcl 60 Mg Capsule.Dr PO 60 mg DAILY SIMIN Administration Fentanyl Citrate 25 mcg 12/21/24 14:50 12/21/24 18:18 Fentanyl Citrate Inj (*Crx) 100 Mcg/2 Ml Vial IV PUSH 25 mcg Q2M PRN Administration Pain Ferrous Sulfate 325 mg 12/21/24 09:00 12/21/24 17:39 Ferrous Sulfate [address] PO Not Given BID SIMIN Gabapentin 300 mg 12/19/24 22:55 12/22/24 05:37 Gabapentin 300 Mg Capsule PO 300 mg Q8HR SIMIN Administration Hydromorphone HCl 1 mg 12/21/24 20:09 12/22/24 06:50 Hydromorphone Hcl Inj (*Crx) 2 Mg/Ml Vial IV PUSH 1 mg Q2H PRN Administration Breakthrough Pain 7-10 or npo Hydromorphone HCl 0.5 mg 12/21/24 20:10 Hydromorphone Hcl Inj (*Crx) 2 Mg/Ml Vial IV PUSH Q2H PRN Breakthrough Pain 4-6 or npo Lactated Ringer's 1,000 mls @ 30 mls/hr 12/21/24 14:50 12/21/24 17:21 Lr - Lactated Ringers Iv IV CONT Infused .Q24H SIMIN Infusion Lactated Ringer's 1,000 mls @ 30 mls/hr 12/21/24 14:50 12/21/24 18:17 Lr - Lactated Ringers Iv IV CONT Infused .Q24H SIMIN Infusion Sodium Chloride 1,000 mls @ 125 mls/hr 12/21/24 17:30 12/22/24 01:40 Normal Saline Iv IV CONT Not Given .Q8H SIMIN Cefazolin Sodium 2 gm in 50 mls @ 100 mls/hr 12/22/24 00:00 12/22/24 00:10 Ancef 2 Gm/D5w 50 Ml IVPB 12/22/24 16:29 Infused Q8H SIMIN Infusion Lisinopril 20 mg 12/19/24 22:50 12/21/24 08:23 Lisinopril 20 Mg Tablet BY MOUTH Not Given DAILY SIMIN Morphine Sulfate 30 mg 12/19/24 22:57 Morphine Sulfate (*Crx) 15 Mg Tab Ir PO Q8H PRN Pain Rated 7-10 Morphine Sulfate 4 mg 12/19/24 22:51 12/21/24 13:09 Morphine Sulfate (*Crx) 2 Mg/Ml Inj IV PUSH 4 mg Q2HR PRN Administration Pain Rated 7-10 Naloxone HCl 0.1 mg 12/21/24 17:28 Naloxone Hcl 0.4 Mg/Ml Vial IV PUSH Q2M PRN Opiate Reversal Ondansetron HCl 4 mg 12/21/24 14:50 Ondansetron Inj 4 Mg/2 Ml Vial IV PUSH ONCE PRN Nausea Ondansetron HCl 4 mg 12/21/24 17:28 Ondansetron Inj 4 Mg/2 Ml Vial IV PUSH Q4H PRN Nausea And Vomiting Oxycodone HCl 5 mg 12/21/24 14:50 12/21/24 20:11 Oxycodone Hcl (*Crx) 5 Mg Tab Ir PO 5 mg ONCE PRN Administration Pain Pantoprazole Sodium 40 mg 12/20/24 09:00 12/21/24 08:32 Pantoprazole 40 Mg Tablet PO Not Given QAM SIMIN Polyethylene Glycol 17 gm 12/22/24 09:00 Polyethylene Glycol 3350 17 Gm Powd.Pack PO QAM SIMIN Senna/Docusate Sodium 2 tab 12/22/24 09:00 Senna/Docusate Sodium Tablet PO Q12HR SIMIN Trazodone HCl 100 mg 12/19/24 22:45 12/21/24 21:05 Trazodone Hcl 50 Mg Tablet BY MOUTH 100 mg HS PRN Administration insomnia Radiology Results: ITS Impressions Hip X-Ray 12/21/24 20:18 IMPRESSION: Expected postsurgical changes, with no radiographic evidence of procedure or hardware related complication. Labs Labs: Laboratory Results - last 24 hr 12/21/24 12/22/24 09:34 04:20 WBC 7.7 RBC 3.73 L Hgb 12.6 L Hct 38.2 L MCV 102.4 H MCH 33.8 MCHC 33.0 RDW 12.7 Plt Count 143 L MPV 10.8 H Immature Gran % (Auto) 0.7 H Neut % (Auto) 86.9 H Lymph % (Auto) 7.2 L [place] % (Auto) 5.2 Eos % (Auto) 0.0 Baso % (Auto) 0.0 L Lymph # (Auto) 0.55 L [place] # (Auto) 0.4 Eos # (Auto) 0.0 Baso # (Auto) 0.0 Abs Immat Gran (auto) 0.05 H Absolute Neuts (auto) 6.7 Absolute Nucleated RBC 0.000 Nucleated RBC % 0.0 Sodium 139 Potassium 3.9 Chloride 103 Carbon Dioxide 28 Anion Gap 8 BUN 14 Creatinine 0.72 Estim Creat Clear Calc 72 Estimated GFR > 60 Glucose 134 H Calcium 8.7 Total Bilirubin 0.7 AST 27 ALT 20 Alkaline Phosphatase 57 Total Protein 7.0 Albumin 3.7 Blood Type B Positive Antibody Screen Negative Quality VTE Prophylaxis VTE prophylaxis: mechanical ordered
[2024-12-22] MEDS: PANTOPRAZOLE 40 MG TABLET PO (08:24)
[2024-12-22] MEDS: lisinopriL 20 MG TABLET BY MOUTH (08:24)
[2024-12-22] MEDS: FERROUS SULFATE 325 MG TABLET DR PO ×2 (08:24→17:43)
[2024-12-22] MEDS: DULoxetine HCL 60 MG CAPSULE.DR PO (08:24)
[2024-12-22] MEDS: SENNA/DOCUSATE SODIUM TABLET 2 TAB PO ×2 (08:24→20:56)
[2024-12-22] MEDS: CYANOCOBALAMIN 1,000 MCG TABLET 1000 MCG PO (08:25)
[2024-12-22] MEDS: polyethylene glycoL 3350 17 GM POWD.PACK PO (08:25)
[2024-12-22] MEDS: ceFAZolin 2 GM/D5W 50 ML 2 GM/50 ML BAG IVPB ×2 (08:29→15:36)
--- NOTE | 2024-12-22 14:13 | WPDANESPN ---
Anes - Prog Note Post-Op Date/Time: 12/22/24 14:13 Cardiovascular status: normal Respiratory status: normal Airway patency: baseline Mental status: baseline Vital Signs: Last Vital Signs Temp 36.6 C 12/22/24 11:13 Pulse 79 12/22/24 12:40 Resp 16 12/22/24 12:40 BP 119/71 12/22/24 12:40 Pulse Ox 97 12/22/24 12:40 O2 Del Method Room Air 12/22/24 08:35 O2 Flow Rate 1 12/21/24 20:54 Pain Score (VAS): 2 I/O: Intake & Output 12/21/24 12/22/24 12/22/24 23:59 07:59 15:59 Intake Total 350 390 512 Output Total 425 Balance -75 390 512 Laboratory Tests 12/22/24 04:20 12/22/24 04:20 12/22/24 04:20 WBC 7.7 RBC 3.73 L Hgb 12.6 L Hct 38.2 L MCV 102.4 H MCH 33.8 MCHC 33.0 RDW 12.7 Plt Count 143 L MPV 10.8 H Immature Gran % (Auto) 0.7 H Neut % (Auto) 86.9 H Lymph % (Auto) 7.2 L [place] % (Auto) 5.2 Eos % (Auto) 0.0 Baso % (Auto) 0.0 L Lymph # (Auto) 0.55 L [place] # (Auto) 0.4 Eos # (Auto) 0.0 Baso # (Auto) 0.0 Abs Immat Gran (auto) 0.05 H Absolute Neuts (auto) 6.7 Absolute Nucleated RBC 0.000 Nucleated RBC % 0.0 Sodium 139 Potassium 3.9 Chloride 103 Carbon Dioxide 28 Anion Gap 8 BUN 14 Creatinine 0.72 Estim Creat Clear Calc 72 Estimated GFR > 60 Glucose 134 H Calcium 8.7 Total Bilirubin 0.7 AST 27 ALT 20 Alkaline Phosphatase 57 Total Protein 7.0 Albumin 3.7 Patient Feedback: Patient satisfied with anesthetic care.
[2024-12-23] MEDS: ACETAMINOPHEN 325 MG TABLET 650 MG PO ×2 (00:10→05:03)
[2024-12-23] MEDS: HYDROcodone/acetaminophen (*CRX) 5-325 MG TABLET 1 TAB PO ×2 (03:30→09:21)
[2024-12-23 03:59] VITALS: BP 133/67; PULSE 107; RESP 18; TEMP 36.5; O2SAT 91
[2024-12-23] MEDS: CYCLOBENZAPRINE HCL 10 MG TABLET PO (05:03)
[2024-12-23] MEDS: GABAPENTIN 300 MG CAPSULE PO (05:03)
[2024-12-23 05:40] LABS: Hematocrit 31.9 % (42.0-52.0); Hemoglobin 10.5 g/dL (14.0-18.0); Mean Corpuscular HGB Conc 32.9 g/dl (32-36); Mean Corpuscular Hemoglobin 34.1 pg (26-34); Mean Corpuscular Volume 103.6 fl (80-100); Mean Platelet Volume 10.5 fl (7.4-10.4); Platelet Count Result 130 k/mm3 (150-375); Red Blood Count 3.08 M/mm3 (4.6-6.20); Red Cell Distribution Width 12.9 % (11.5-14.5); White Blood Count 6.5 K/mm3 (4.5-10.0)
[2024-12-23 05:56] LABS: Alanine Aminotransferase 14 U/L (6-50); Albumin Level 3.3 g/dL (3.5-5.1); Alkaline Phosphatase 53 U/L (38-126); Anion Gap 6 mmol/L (4-12); Aspartate Amino Transferase 23 U/L (17-59); Bilirubin,Total 0.6 mg/dL (0.2-1.3); Blood Urea Nitrogen 17 mg/dL (9-20); Calcium 8.3 mg/dL (8.4-10.2); Carbon Dioxide 29 mmol/L (22-30); Chloride 103 mmol/L (98-107); Estimated CRCL calculation 68 ml/min; Estimated Glomerular Filt Rate > 60; Glucose 119 mg/dL (65-110); Potassium 3.9 mmol/L (3.4-5.0); Sodium 138 mmol/L (137-145)
[2024-12-23 08:00] VITALS: PULSE 78; RESP 19; O2SAT 96
[2024-12-23 08:32] VITALS: BP 125/69; PULSE 78; RESP 19; TEMP 36.6; O2SAT 96
--- NOTE | 2024-12-23 09:15 | P.DS_ITS ---
DS: Admitting Diagnosis Discharge Date 12/23 Admitting Diagnosis fall, lt hip fx DS: Discharge Diagnosis Discharge Diagnosis (1) Fall: Code(s): W19.XXXA - Unspecified fall, initial encounter Status: Acute (2) Fracture of femoral neck, left: Qualifiers: Encounter type: initial encounter Fracture type: closed Qualified Code(s): S72.002A - Fracture of unspecified part of neck of left femur, initial encounter for closed fracture Code(s): S72.002A - Fracture of unspecified part of neck of left femur, initial encounter for closed fracture Status: Inactive (3) Hypertension: Code(s): I10 - Essential (primary) hypertension Status: Acute (4) GERD (gastroesophageal reflux disease): Code(s): K21.9 - Gastro-esophageal reflux disease without esophagitis Status: Acute (5) Iron deficiency anemia: Code(s): D50.9 - Iron deficiency anemia, unspecified Status: Acute (6) B12 deficiency anemia: Code(s): D51.9 - Vitamin B12 deficiency anemia, unspecified Status: Acute DS: Summary Hospital Course Hospital Course: 69 year old male with past medical history of multiple falls, hypertension, osteoporosis, GERD, and chronic back pain s/p lumbar surgery presents to the hospital following a mechanical ground level fall resulting in left hip pain. No other injuries noted and no loss of consciousness. - Lumbar spine XR: No acute osseous abnormality of lumbar spine however there are postoperative changes and multilevel degenerative disc disease. Mechanical ground level fall resulting in left hip pain. of note- Patient had a fall in August down a flight of stairs that he states was 2/2 dehydration. He was transferred to [facility] for neurogenic shock at that time. Pt was taking morphine prn at home for chronic back pain prior - will restart. Narcan rx is provided. Restart tylenol with codeine prn as well. Hold argelia rest of pain meds monitor closely. S/p open treatment of left hip femoral neck fracture on 12/[address] Carlos -aspirin 325 daily for DVT prophylaxis per ortho - PT/OT- rehab #gerd Chronic with a history of dysphagia. EGD on 05/07/2024 showed unspecified esophagitis and hiatal hernia. Continue Protonix 40 mg daily Speech consulted, bedside swallow unremarkable # MERCED Iron panel: iron 45, TIBC 258, % sat 17 Started on iron supplementation -will continue Hg trended down a bit-12.6->10.5. NO s/s of bleed. Iron was started. Monitor closely- will need repeated CBC in a week or so to ensure Hg is stable or sooner if any s/s of bleeding. # B12 deficiency B12 213. Given 1000 mg IM x1 and started on 1000 mg PO daily -will continue Status at Discharge Functional status at discharge: uses cane/walker Overall status at discharge: patient is progressing back to baseline Time Spent with Patient Time attestation: Total time spent providing and/or coordinating discharge services: Time spent: Greater than 30 minutes Exam Narrative: General: male in no acute respiratory distress who is nontoxic appearing, lying semi recumbent in bed. HEENT: Normocephalic. Atraumatic. Extraocular movement intact. Sclera clear and anicteric. No facial asymmetry. Chest: Lungs are clear to auscultation bilaterally. No wheezes or crackles. CV: Heart was regular rate and rhythm. Abd: Abdomen was soft. Nontender. Nondistended. Positive bowel sounds. Ext: No clubbing, cyanosis, or edema. DP pulses bilaterally. Sensation intact. Dressing clean/dry/intact. Neuro: Patient is alert and oriented x4. Speech is clear. dressing to lt hip is c/d/i Const: General: comfortable DS: Data Data Completed and Pending Completed studies during hospitalization: hip xray Labs on day of discharge: Labs from last 24 hours 12/23/24 05:27 WBC 6.5 RBC 3.08 L Hgb 10.5 L Hct 31.9 L MCV 103.6 H MCH 34.1 H MCHC 32.9 RDW 12.9 Plt Count 130 L MPV 10.5 H Sodium 138 Potassium 3.9 Chloride 103 Carbon Dioxide 29 Anion Gap 6 BUN 17 Creatinine 0.76 Estim Creat Clear Calc 68 Estimated GFR > 60 Glucose 119 H Calcium 8.3 L Total Bilirubin 0.6 AST 23 ALT 14 Alkaline Phosphatase 53 Total Protein 6.0 L Albumin 3.3 L Discharge Plan Discharge Attending physician on discharge: Jose David Garrett Consulting providers: Karl Carlos Discharging Clinician: Scarlett Mtz Anticipated Discharge Date/Time: 12/22/24 12:20 Patient Disposition: Hospital Swing Bed Activity: as tolerated Diet: regular Discharge Instructions: Keep dressing clean Follow up with Dr. Carlos Patient Instructions: Antibiotic Form Patient Language: Bots[place] Stand Alone Forms: General Discharge Information Follow-up/Referrals: Mark Carmichael DO [Primary Care Provider] - 1 Week Karl Carlos MD [Physician] - Call for Appointment Discharge Medications: New aspirin 325 mg Tablet 325 mg PO DAILY@0800 Qty: 90 0RF sennosides-docusate sodium [Senokot-S] 8.6-50 mg Tablet 2 tab PO Q12HR Qty: 12 0RF cyanocobalamin (vitamin B-12) [Vitamin B-12] 1,000 mcg Tablet 1,000 mcg PO QAM Qty: 90 0RF naloxone [Narcan] 4 mg/actuation spray,non-aerosol 1 spray intranasal Q2-3M PRN (Reason: opioid overdose) Qty: 2 0RF Rx Instructions: spray 1 dose into ONE nostril; alternate nostrils w each dose until help arrives ferrous sulfate 325 mg (65 mg iron) Tablet,Delayed Release (Dr/Ec) 325 mg PO BID Qty: 60 0RF Continued pantoprazole 40 mg tablet,delayed release (DR/EC) 40 mg PO QAM Qty: 30 3RF duloxetine 60 mg capsule,delayed release(DR/EC) 60 mg PO DAILY Qty: 90 3RF morphine 30 mg tablet 30 mg PO Q8H PRN (Reason: Pain) gabapentin 300 mg capsule 300 mg PO BID cyclobenzaprine 10 mg tablet 10 mg PO BID PRN (Reason: Back Pain) Qty: 20 0RF acetaminophen-codeine 300-60 mg tablet 1 tablet PO TID PRN (Reason: Pain) lisinopril 20 mg tablet See Rx Instructions .ROUTE .COMPLEX Qty: 90 2RF Dose Instruction: TAKE 1 TABLET BY MOUTH EVERY DAY Rx Instructions: TAKE 1 TABLET BY MOUTH EVERY DAY trazodone 100 mg tablet See Rx Instructions .ROUTE .COMPLEX Qty: 90 0RF Dose Instruction: 100 MG ORALLY EVERY DAY AT BEDTIME NEEDED FOR INSOMNIA Rx Instructions: 100 MG ORALLY EVERY DAY AT BEDTIME NEEDED FOR INSOMNIA Date of admission: 12/20/24 07:26 Primary Care Provider: Mark Carmichael Admitting Provider: Jose David Garrett Attending physician on admission: Scarlett Mtz Condition: Stable Quality VTE Prophylaxis VTE prophylaxis: mechanical ordered
[2024-12-23] MEDS: FERROUS SULFATE 325 MG TABLET DR PO (09:20)
[2024-12-23] MEDS: ASPIRIN 325 MG TABLET PO (09:20)
[2024-12-23] MEDS: DULoxetine HCL 60 MG CAPSULE.DR PO (09:21)
[2024-12-23] MEDS: CYANOCOBALAMIN 1,000 MCG TABLET 1000 MCG PO (09:21)
[2024-12-23] MEDS: lisinopriL 20 MG TABLET BY MOUTH (09:21)
[2024-12-23] MEDS: PANTOPRAZOLE 40 MG TABLET PO (09:21)
[2024-12-23] MEDS: SENNA/DOCUSATE SODIUM TABLET 2 TAB PO (09:54)
== END 2024-12-23 12:22 | disposition swing bed (61) | DRG 522 ==
PROVIDERS: Nurse Practitioner Gerontology; Orthopaedic Surgery; Student in an Organized Health Care Education/Training Program; Admitting Provider Internal Medicine; PCP Family Medicine; Visit Provider Nurse Practitioner
PROC: 0SRS0JZ Replacement of Left Hip Joint, Femoral Surface with Synthetic Substitute, Open Approach (ICD-10-PCS; CPT 27125; principal; 2024-12-21 15:00)
DX: S72.002A Fracture of unspecified part of neck of left femur, initial encounter for closed fracture (principal); E51.9 Thiamine deficiency, unspecified; W18.30XA Fall on same level, unspecified, initial encounter; R29.6 Repeated falls; I10 Essential (primary) hypertension; D50.9 Iron deficiency anemia, unspecified; D51.9 Vitamin B12 deficiency anemia, unspecified; K21.9 Gastro-esophageal reflux disease without esophagitis; F17.210 Nicotine dependence, cigarettes, uncomplicated; F41.9 Anxiety disorder, unspecified; M54.9 Dorsalgia, unspecified; G89.29 Other chronic pain; M81.0 Age-related osteoporosis without current pathological fracture; K75.9 Inflammatory liver disease, unspecified; Z79.899 Other long term (current) drug therapy
CPT/HCPCS: 36415; 73502; 80048; 80053; 82607; 82746; 83540; 83550; 85025; 85027; 85055; 86850; 86900; 86901; 92610; 97110; 97161; 97165; 97530; 97535; A9270; C1713; C1776; G0378; J0171; J0690; J1171; J2004; J2270; J2405; J2704; J3010; J7120

== ENCOUNTER 2024-12-23 13:21 | Inpatient (IN) | payer MEDICARE, SELFPAY ==
[2024-12-23 13:58] VITALS: BMI 23.7
[2024-12-23 14:26] VITALS: BP 111/66; PULSE 78; RESP 14; TEMP 36.3; O2SAT 98
--- NOTE | 2024-12-23 14:38 | PC.NURSE ---
Pt arrived from [facility] via private car. He is A/Ox3, wt bearing as tolerated the left hip. Femur FX repair on 12/21/[address] CDI.
--- OUTSIDE RECORDS SUMMARY | 2024-12-23 15:07 | XMS_ITS | Clinical Summary ---
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 Pulse 64 08/27/2022 12:55 PM ENVELOPE FOLDING MACHINE OPERATOR Temperature 36.2 C (97.2 F) 08/27/2022 12:55 PM ENVELOPE FOLDING MACHINE 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 Respiratory Rate 22 08/27/2022 12:5 5 PM ENVELOPE FOLDING MACHINE OPERATOR Oxygen Saturation 97% 08/27/2022 12: 55 PM ENVELOPE FOLDING MACHINE OPERATOR Inhaled Oxygen Concentration - - Weight 67.5 kg (148 lb 12.8 oz) 07/28/2022 3:26 AM ENVELOPE FOLDING MACHINE OPERATOR Height 165.1 cm (5' 5 ) 07/25/2022 1:30 PM ENVELOPE FOLDING MACHINE OPERATOR Body Mass Index 24.76 07/25/2022 1:30 PM ENVELOPE FOLDING MACHINE OPERATOR Plan of Treatment Health Maintenance Due [...] and discharge planning Lifestyle No Angela Dawkins, 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
--- OUTSIDE RECORDS SUMMARY | 2024-12-23 15:07 | XMS_ITS | Continuity of Care Document ---
Author Organization [facility] Address [address] [place] [address] [place] [address] Phone Care Team Providers Care Logistics Planning Manager Name Role Phone Adriana Lim Unavailable Unavailable Procedures Procedure Date Office/outpatient Visit, Est Office/outpatient Visit, Est Office/outpatient Visit, Est Office Consultation Advance Directives Directive Yes / No Effective Date File Name No Information Encounters Encounter Description Practice Location Reason(s) For Visit Diagnoses Date Provider Providers Copied on Encounter [place] [facility] [place] [address] [place] [address] [address], [place], [place], [id number], tel:[phone] [facility] No Information Feb-2 4-200 9 Carina Bills [address] , [address], [place], [place], [facility], . tel:[phone] [place] [facility] [place] [address] [place] [address] [address], [place], [place], [id number], tel:[phone] [facility] No Information Feb-1 0-200 9 Carina Bills [address] , [address], [place], [address], . tel:[phone] [place] [facility] [place] [address] [place] [address] [address], [place], [place], [id number], tel:[phone] [facility] No Information Feb-0 3-200 9 Carina Wright. [address] , [address], [place], [address], [place]. tel:[phone] Office Consultation [facility], [address], [place], [place], [id number], [place] tel:[phone] [facility] No Information 9 Carina Wright. [address] [facility] , [address], [place], [address], [place]. tel:[phone] Referring Provider: Jeff Grayson, [address] [place], [address]. tel:[phone] Family History Family Member Type Diagnosis Age At Onset No Information Payers Payer name Insurance type Covered democrat ID Authoriza tiash(s) [place] [id number] Social History Type Description Quantity Date Captured [...]
--- OUTSIDE RECORDS SUMMARY | 2024-12-23 15:07 | XMS_ITS | Clinical Summary ---
Author Organization [facility] Address [address] [place] [address] Care Team Providers Care Pipe Insulator Name Role Phone Jany Markelvia BACK Primary Care Provider [phone] Source Comments [facility],non-owned Affiliates and Associated Physician Practices is amultiple site organization consisting of ambulatory clinics and hospital sitesin [place], [place], [place] and [place]. This disclosure is being madepursuant to the Care Everywhere program and may not contain all information available regarding this patient. Last updated 18.[facility] Allergies Active Allergy Reactions Criticality Noted Date [...] and heating? Not hard at all 08/20/2024 [facility] - Occupational Stress [...] any time in the past 12 m [facility], were you homeless or living in a fci (including now)? 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 Gender Identity Not on file Sexual Orientation Not on file Last Filed Vital Signs Vital Sign Reading Time Taken Comments Blood Pressure 164/85 08/20/2024 11:05 AM ASSISTANT BANQUET MANAGER Pulse 60 08/20/2024 11:05 AM ASSISTANT BANQUET MANAGER Temperature 36.8 C (98.3 F) 08/20/2024 11:05 AM ASSISTANT BANQUET MANAGER Respiratory Rate 20 08/20/2024 11:05 AM ASSISTANT BANQUET MANAGER Oxygen Saturation 97% 08/20/2024 11:05 AM ASSISTANT BANQUET MANAGER Inhaled Oxygen Concentration - - Weight 74.5 kg (164 lb 3.2 oz) 08/18/2024 4:00 A M ASSISTANT BANQUET MANAGER Height 182.9 cm (6') 08/16/2024 5:26 AM ASSISTANT BANQUET MANAGER Body Mass Index 22.27 08/16/2024 5:26 AM ASSISTANT BANQUET MANAGER Plan of Treatment Upcoming Encounters Date Type Department Care Team (Late st Contact Info) Description 01/19/2025 11:00 AM CDT Office Visit [facility] [address] [facility], [facility] [place] [place] [id number] Raymond Miller MD [address] [place] [address] Health Maintenance Due Date Last [...] PHILLIPS Subscriber ID:Not on file (Home) Address: [address] [place] [id number] Payer ID:Not on file Group ID:Not on file Type:Self Pay Address: [place], [place] Advance Directives * Full Code (Latest Code Status on File) Date Activated Date Inactivated Comments 08/16/2024 6:25 PM 08/20/2024 1:32 PM Care Teams Pipe Insulator Relationship Specialty Start Date End Date Mark Carmichael DO [address] [place] [id number] PCP - General Family Medicine 08/16/24
--- OUTSIDE RECORDS SUMMARY | 2024-12-23 15:07 | XMS_ITS | Encounter Summary ---
Author Organization [facility] Address [facility] [place] [address] Care Team Providers Care Passenger Brakeman Name Role Phone Channing Panchal MD Primary Care Provider [phone] Mark Carmichael DO Primary Care Provider [phone] Encounter Details Date Type Department Care Team (Late st Contact Info) Description 02/07/2019 Abstract [facility] CONVERSION [address] [place] [address] , Generic Conversion, Social History Tobacco Use [...] Rule Out 07/25/2022 07/25/2022 08/01/2022 12:32 AM COLLABORATING SUPERVISING PHYSICIAN documented as of this encounter Care Teams Passenger Brakeman Relationship Specialty Start Date End Date Channing Panchal MD [address] [place] [address] PCP - General INTERNAL MEDICINE 08/17/21 07/21/22 Mark Carmichael DO [address] [place] [address] PCP - General FAMILY PRACTICE 07/22/22 documented as of this encounter
--- OUTSIDE RECORDS SUMMARY | 2024-12-23 15:07 | XMS_ITS | Continuity of Care Document ---
Author Organization [facility] Address [address] [place] [address] Phone Care Team Providers Care Bistro Attendant Name Role Phone Junior Menard MD Unavailable Unavailable Allergies, Adverse Reactions, Alerts Substance Reaction Status Criticality NSAIDS (Non-Steroidal Anti-Inflammatory Drug) Active No Information Medications Medication Instructions Dosage Effective Dates (start - stop) Status Comments EXCEDRIN BACK & BODY (unknown strength) Not Available - Active TYLENOL (unknown strength) Not Available - Active ASPIRIN (unknown strength) Not Available - Active Procedures Procedure Date MU Reporting OFFICE/OUTPATIENT VISIT NEW Advance Directives Directive Yes / No Effective Date File Name No Information Encounters Encounter Description Practice Location Reason(s) For Visit Diagnoses Date Provider Providers Copied on Encounter [facility], [address], [facility], tel:[phone] [facility] No Information [address]. [address] [place], [place], [id number] . tel: [phone] OFFICE/OUTPA TIENT VISIT NEW [facility], [address], [facility], tel:[phone] [facility] Body Mass Index 29.0-29.9, adultDietary surveillance and counselingHyperte nsion, UnspecifiedLumbar RadiculopathyOthe r unspecified back disorder [address] [address] [place], [place], [id number] . tel: [phone] Family History Family Member Type Diagnosis Age At Onset Problem (finding) Family history of rheum atoid arthritis Payers Payer name Insurance type Covered alliance party ID Authoriza tiash(s) No Information Social [...]
[2024-12-23 15:26] VITALS: O2SAT 96
[2024-12-23] MEDS: HYDROcodone/acetaminophen (*CRX) 5-325 MG TABLET 1 TAB PO ×2 (15:44→20:48)
[2024-12-23] MEDS: CYCLOBENZAPRINE HCL 10 MG TABLET PO (15:51)
[2024-12-23 16:00] VITALS: BP 134/74; PULSE 78; RESP 18; TEMP 36.6; O2SAT 96
[2024-12-23] MEDS: MORPHINE SULFATE (*CRX) 15 MG TAB IR 30 MG PO (16:56)
[2024-12-23] MEDS: GABAPENTIN 300 MG CAPSULE PO (16:56)
[2024-12-23] MEDS: FERROUS SULFATE 325 MG TABLET DR PO (16:56)
[2024-12-23] MEDS: SENNA/DOCUSATE SODIUM TABLET 2 TAB PO (20:46)
[2024-12-23] MEDS: traZODone HCL 50 MG TABLET 100 MG PO (20:48)
[2024-12-24] VITALS: BP 92/61; PULSE 79; RESP 16; TEMP 36.7; O2SAT 96
[2024-12-24] MEDS: MORPHINE SULFATE (*CRX) 15 MG TAB IR 30 MG PO ×3 (04:12→20:05)
[2024-12-24] MEDS: HYDROcodone/acetaminophen (*CRX) 5-325 MG TABLET 1 TAB PO ×2 (07:37→15:33)
[2024-12-24 08:00] VITALS: BP 93/60; PULSE 104; RESP 12; TEMP 36.3; O2SAT 98
[2024-12-24] MEDS: SENNA/DOCUSATE SODIUM TABLET 2 TAB PO ×2 (09:05→20:05)
[2024-12-24] MEDS: CYCLOBENZAPRINE HCL 10 MG TABLET PO ×2 (09:05→20:06)
[2024-12-24] MEDS: CYANOCOBALAMIN 1,000 MCG TABLET 1000 MCG PO (09:06)
[2024-12-24] MEDS: FERROUS SULFATE 325 MG TABLET DR PO ×2 (09:06→17:44)
[2024-12-24] MEDS: ASPIRIN 325 MG ENTERIC TABLET PO (09:06)
[2024-12-24] MEDS: DULoxetine HCL 30 MG CAPSULE.DR 60 MG PO (09:06)
[2024-12-24] MEDS: GABAPENTIN 300 MG CAPSULE PO ×2 (09:06→17:44)
--- NOTE | 2024-12-24 10:02 | P.HP_ITS ---
H&P: HPI History of Present Illness Date/Time: 12/24/24 10:02 Chief Complaint: left leg pain Narrative: Patient is a 69-year-old male with frequent falls, hepatitis, hypertension, osteoporosis and chronic back pain status post surgery. who was transferred over to [facility] swing bed for continued rehabilitation postop ORIF of left femoral neck. patient at time of assessment denied any chest pain, shortness a breath, nausea, vomiting, chills, fevers. Patient reported pain controlled worse with ambulation. Review of Systems Review of Systems: 12 systems were reviewed and are negativ e except for as per HPI. All systems reviewed & are unremarkable except as noted in HPI and below PMFSH Past Medical History Medical History Bleeding disorder Lumbar spondylosis Pericardial effusion Pneumonia Restless leg syndrome Osteoporosis Hypertension Hepatitis Headache Cancer Arthritis Anxiety and depression Chronic back pain Surgical History Surgical History Status post lumbar surgery Previous back surgery Family History Family History Mother Cancer Diabetes mellitus Sibling Cancer Social History Social History Smoking packs per day: 1 Smoking cigarettes per day: 20.0 Years smoked: 50 Smoking pack-years: 50.00 Smoking status: Current every day smoker Tobacco type: cigarettes Second hand tobacco smoke exposure: No Smoking end date: 07/09/22 Alcohol intake: current Drinks per week: 4 Substance use: never Substance use type: does not use Do You Feel Safe in your Home?: Yes Lack of Transportation: No Lack of Food: Never True Current Housing: I Have Housing Concerned About Future Housing: No Difficulty Paying Gas/Electric Bills: No Difficulty Paying for Meds: No Currently Unemployed: No Education: High School Diploma/GED Difficulty w/ Childcare or Family Care: No Living arrangements: with family Spiritual care concerns: No Meds Home Medications and Allergies Home Medications ?Medication ?Instructions ?Recorded ?Confirmed ?Type duloxetine 60 mg capsule,delayed 60 mg PO DAILY #90 caps 02/05/24 12/23/24 Rx release gabapentin 300 mg capsule 300 mg PO BID 02/05/24 12/23/24 History morphine 30 mg immediate release 30 mg PO Q8H PRN Pain 02/05/24 12/23/24 History tablet pantoprazole 40 mg tablet,delayed 40 mg PO QAM #30 tabs 03/17/24 12/23/24 Rx release acetaminophen 300 mg-codeine 60 mg 1 tablet PO TID PRN Pain 04/13/24 12/23/24 History tablet lisinopril 20 mg tablet See Rx Instructions .Route 08/06/24 12/23/24 Rx .COMPLEX #90 tabs trazodone 100 mg tablet See Rx Instructions .Route 11/03/24 12/23/24 Rx .COMPLEX #90 tabs aspirin 325 mg tablet 325 mg PO DAILY@0800 #90 tabs 12/23/24 12/23/24 Rx cyanocobalamin (vitamin B-12) 1,000 mcg PO QAM #90 tabs 12/23/24 12/23/24 Rx 1,000 mcg tablet (Vitamin B-12) cyclobenzaprine 10 mg tablet 10 mg PO BID PRN Back Pain #20 tabs 12/23/24 12/23/24 Rx ferrous sulfate 325 mg (65 mg 325 mg PO BID #60 tabs 12/23/24 12/23/24 Rx iron) tablet,delayed release naloxone 4 mg/actuation nasal 1 spray intranasal Q2-3M PRN 12/23/24 12/23/24 Rx spray (Narcan) opioid overdose #2 ea sennosides 8.6 mg-docusate sodium 2 tab PO Q12HR #12 tabs 12/23/24 12/23/24 Rx 50 mg tablet (Senokot-S) Allergies Allergy/AdvReac Type Severity Reaction Status Date / Time NSAIDS (Non-Steroidal AdvReac Mild Abdominal Verified 12/21/24 14:15 Anti-Inflamma Pain ibuprofen AdvReac Sick Verified 12/21/24 14:15 feeling prednisone AdvReac Sick Verified 12/21/24 14:15 feeling Vital Signs Vital Signs - 24 hr 12/23/24 14:26 12/23/24 15:26 12/23/24 16:00 Temperature 97.3 F L 97.8 F Pulse Rate 78 78 Respiratory Rate 14 18 Blood Pressure 111/66 134/74 Pulse Oximetry 98 96 96 Oxygen Delivery Room Air Room Air Room Air 12/24/24 00:00 12/24/24 08:00 Temperature 98.1 F 97.4 F L Pulse Rate 79 104 H Respiratory Rate 16 12 Blood Pressure 92/61 L 93/60 L Pulse Oximetry 96 98 Oxygen Delivery Room Air Room Air Exam Narrative: General: well appearing, appears stated age. HEENT: normocephalic, atraumatic. Mucous membranes moist. EOMI, PERRLA, Neck supple without JVD Respiratory: clear to auscultation bilaterally. Cardiovascular: Regular rate and rhythm, normal S1-S2 upon auscultation. No murmurs, rubs, or clicks. Abdomen: Soft, round,nondistended and nontender. No rebound, no guarding. Bowel sounds present to all four quadrants. Extremities: No cyanosis, clubbing, or edema present. Pulses are palpable 2/2. Left lower extremity range of motion reduced due to acute pain Neuro: Alert and orientated x 4. PERRLA. Cranial nerves 2-12 intact without focal deficit. Skin: Warm, dry, and intact, without rash, erythema, or lesion. Left lateral thigh incision with terry scant drainage no swelling or erythema Psych: pleasant, cooperative, normal speech, normal affect, no hallucinations, no dysarthia Assessment and Plan Assessment and plan (1) Fall: Code(s): W19.XXXA - Unspecified fall, initial encounter Status: Acute Assessment and Plan: patient had an ORIF left femoral neck fracture at [facility] patient has history of multiple falls * PT/OT (2) Fracture of femoral neck, left: Qualifiers: Encounter type: initial encounter Fracture type: closed Qualified Code(s): S72.002A - Fracture of unspecified part of neck of left femur, initial encounter for closed fracture Code(s): S72.002A - Fracture of unspecified part of neck of left femur, initial encounter for closed fracture Status: Inactive Assessment and Plan: Post-op ORIF at [place] with Dr. Cralos Left femoral neck * Staple removal per ortho * Aspirin 325 for DVT * Dressing changes daily or when soiled * stool softener * Pain management with home Morphine and [place] (3) Anxiety: Code(s): F41.9 - Anxiety disorder, unspecified Status: Acute Assessment and Plan: * Continue Cymbalta (4) Hypertension: Code(s): I10 - Essential (primary) hypertension Status: Acute Assessment and Plan: * Holding lisinopril BP soft will resume when BP tolerates * monitor BP per unit protocol (5) Chronic back pain: Code(s): M54.9 - Dorsalgia, unspecified; G89.29 - Other chronic pain Status: Acute Assessment and Plan: * Resumed home morphine and gabapentin (6) Iron deficiency anemia: Code(s): D50.9 - Iron deficiency anemia, unspecified Status: Acute Assessment and Plan: * iron panel: iron 45, TIBC 258, % sat 17 * Resumed iron supplementation -will continue * Hgb trended down a bit-12.6->10.5. NO s/s of bleed. * Monitor closely- will need repeated CBC in a week Plan Code status: Full code per patient DVT prophylaxis: ASA/Ambulatory low risk/Swing bed Stress ulcer prophylaxis: Protonix 40 daily PT/OT notes: SWING/REHAB Disposition: patient admitted to [place] swing bed for continued strength and endurance training with physical and occupational therapy. plan will be to discharge to home when medically stable. Quality VTE Prophylaxis VTE prophylaxis: mechanical ordered -Patient's previous records reviewed on admission -ER notes reviewed in detail on admission -discussed all findings and current treatment plan with patient/Family/POA -Consultations reviewed for recommendations -Patient's disposition for safe discharge discussed with director case Dictation performed by [employer] direct speech recognition software, therefore van driver helper variants and typographical errors may occur. Hospitalist MIPS Advance Care Plan I have confirmed that the patient's Advanced Care Plan is present, code status is documented, or surrogate decision maker is listed in patient medical record.: Yes Medication Reconciliation I have utilized all available resources to obtain, update and review the patients current medications (includes all prescriptions, OTC, herbals, cannabis, and nutritional supplements).: Yes The patient is not eligible for med reconciliation; the patient is in a emergent medical situation where delaying treatment would jeopardize the patients health.: No
[2024-12-24 16:40] VITALS: BP 93/62; PULSE 80; RESP 16; TEMP 36.4; O2SAT 97
[2024-12-24] MEDS: traZODone HCL 50 MG TABLET 100 MG PO (20:06)
[2024-12-25] VITALS: BP 96/57; PULSE 71; RESP 16; TEMP 36.5; O2SAT 96
[2024-12-25] MEDS: HYDROcodone/acetaminophen (*CRX) 5-325 MG TABLET 1 TAB PO ×3 (03:02→16:43)
[2024-12-25] MEDS: MORPHINE SULFATE (*CRX) 15 MG TAB IR 30 MG PO ×3 (05:25→21:20)
[2024-12-25 07:45] VITALS: BP 107/73; PULSE 79; RESP 16; TEMP 36.4; O2SAT 97
[2024-12-25] MEDS: FERROUS SULFATE 325 MG TABLET DR PO ×2 (09:12→16:44)
[2024-12-25] MEDS: CYANOCOBALAMIN 1,000 MCG TABLET 1000 MCG PO (09:12)
[2024-12-25] MEDS: PANTOPRAZOLE 40 MG TABLET PO (09:12)
[2024-12-25] MEDS: ASPIRIN 325 MG ENTERIC TABLET PO (09:12)
[2024-12-25] MEDS: DULoxetine HCL 30 MG CAPSULE.DR 60 MG PO (09:13)
[2024-12-25] MEDS: GABAPENTIN 300 MG CAPSULE PO ×2 (09:13→16:43)
--- NOTE | 2024-12-25 13:44 | PC.NURSE ---
Verbal order received per BACKHAUL DRIVER. Daily dressing changed. Cleanse with Normal saline daily and PRN when soiled. Read back to confirm.
[2024-12-25 16:35] VITALS: BP 113/64; PULSE 74; RESP 18; TEMP 36.1; O2SAT 98
[2024-12-25] MEDS: traZODone HCL 50 MG TABLET 100 MG PO (21:20)
[2024-12-25] MEDS: CYCLOBENZAPRINE HCL 10 MG TABLET PO (21:20)
[2024-12-25] MEDS: SENNA/DOCUSATE SODIUM TABLET 2 TAB PO (21:21)
[2024-12-26] VITALS: BP 111/68; PULSE 68; RESP 16; TEMP 36.5; O2SAT 95
[2024-12-26] MEDS: HYDROcodone/acetaminophen (*CRX) 5-325 MG TABLET 1 TAB PO ×2 (02:38→11:17)
[2024-12-26] MEDS: MORPHINE SULFATE (*CRX) 15 MG TAB IR 30 MG PO ×3 (06:32→22:50)
[2024-12-26 08:00] VITALS: BP 134/74; PULSE 78; RESP 18; TEMP 36.6; O2SAT 96
[2024-12-26] MEDS: DULoxetine HCL 30 MG CAPSULE.DR 60 MG PO (08:53)
[2024-12-26] MEDS: ASPIRIN 325 MG ENTERIC TABLET PO (08:53)
[2024-12-26] MEDS: PANTOPRAZOLE 40 MG TABLET PO (08:53)
[2024-12-26] MEDS: FERROUS SULFATE 325 MG TABLET DR PO ×2 (08:53→17:17)
[2024-12-26] MEDS: CYANOCOBALAMIN 1,000 MCG TABLET 1000 MCG PO (08:53)
[2024-12-26] MEDS: SENNA/DOCUSATE SODIUM TABLET 2 TAB PO ×2 (08:53→20:58)
[2024-12-26] MEDS: GABAPENTIN 300 MG CAPSULE PO ×2 (08:54→17:17)
[2024-12-26] MEDS: CYCLOBENZAPRINE HCL 10 MG TABLET PO ×2 (09:02→20:58)
[2024-12-26 15:07] VITALS: BP 112/62; PULSE 64; RESP 18; TEMP 36.1; O2SAT 97
[2024-12-26 20:00] VITALS: PULSE 70; RESP 18; O2SAT 95
[2024-12-26] MEDS: traZODone HCL 50 MG TABLET 100 MG PO (20:58)
[2024-12-27] VITALS: BP 95/53; PULSE 68; RESP 16; TEMP 36.2; O2SAT 93
[2024-12-27] MEDS: MORPHINE SULFATE (*CRX) 15 MG TAB IR 30 MG PO ×2 (06:32→14:38)
[2024-12-27 08:00] VITALS: BP 110/72; PULSE 82; RESP 18; TEMP 36.3; O2SAT 98
[2024-12-27] MEDS: DULoxetine HCL 30 MG CAPSULE.DR 60 MG PO (08:28)
[2024-12-27] MEDS: ASPIRIN 325 MG ENTERIC TABLET PO (08:28)
[2024-12-27] MEDS: CYANOCOBALAMIN 1,000 MCG TABLET 1000 MCG PO (08:29)
[2024-12-27] MEDS: GABAPENTIN 300 MG CAPSULE PO ×2 (08:29→17:03)
[2024-12-27] MEDS: FERROUS SULFATE 325 MG TABLET DR PO ×2 (08:29→17:03)
[2024-12-27] MEDS: SENNA/DOCUSATE SODIUM TABLET 2 TAB PO ×2 (08:29→20:54)
[2024-12-27] MEDS: HYDROcodone/acetaminophen (*CRX) 5-325 MG TABLET 1 TAB PO ×2 (08:30→19:28)
[2024-12-27] MEDS: PANTOPRAZOLE 40 MG TABLET PO (08:30)
[2024-12-27] MEDS: CYCLOBENZAPRINE HCL 10 MG TABLET PO ×2 (08:35→20:54)
[2024-12-27 16:00] VITALS: BP 108/74; PULSE 74; RESP 18; TEMP 36.1; O2SAT 96
[2024-12-27 20:00] VITALS: PULSE 78; RESP 18; O2SAT 94
[2024-12-27] MEDS: traZODone HCL 50 MG TABLET 100 MG PO (20:54)
[2024-12-28] VITALS: BP 109/59; PULSE 65; RESP 18; TEMP 36.2; O2SAT 96
[2024-12-28] MEDS: MORPHINE SULFATE (*CRX) 15 MG TAB IR 30 MG PO ×2 (00:32→08:10)
[2024-12-28] MEDS: HYDROcodone/acetaminophen (*CRX) 5-325 MG TABLET 1 TAB PO (06:08)
[2024-12-28 08:00] VITALS: BP 118/76; PULSE 72; RESP 14; TEMP 36.6; O2SAT 97
[2024-12-28] MEDS: ASPIRIN 325 MG ENTERIC TABLET PO (08:11)
[2024-12-28] MEDS: SENNA/DOCUSATE SODIUM TABLET 2 TAB PO (08:54)
[2024-12-28] MEDS: GABAPENTIN 300 MG CAPSULE PO (08:54)
[2024-12-28] MEDS: CYANOCOBALAMIN 1,000 MCG TABLET 1000 MCG PO (08:55)
[2024-12-28] MEDS: DULoxetine HCL 30 MG CAPSULE.DR 60 MG PO (08:55)
[2024-12-28] MEDS: FERROUS SULFATE 325 MG TABLET DR PO (08:55)
[2024-12-28] MEDS: PANTOPRAZOLE 40 MG TABLET PO (08:55)
--- NOTE | 2024-12-28 10:02 | P.DS_ITS ---
DS: Admitting Diagnosis Discharge Date 12/28/2024 Admitting Diagnosis rehab post left hemiarthroplasty DS: Discharge Diagnosis Discharge Diagnosis (1) Fall: Code(s): W19.XXXA - Unspecified fall, initial encounter Status: Acute Assessment and Plan: patient had an ORIF left femoral neck fracture at [facility] patient has history of multiple falls * PT/OT (2) Fracture of femoral neck, left: Qualifiers: Encounter type: initial encounter Fracture type: closed Qualified Code(s): S72.002A - Fracture of unspecified part of neck of left femur, initial encounter for closed fracture Code(s): S72.002A - Fracture of unspecified part of neck of left femur, initial encounter for closed fracture Status: Inactive Assessment and Plan: Post-op ORIF at [place] with Dr. Carlos Left femoral neck * Staple removal per ortho * Aspirin 325 for DVT * Dressing changes daily or when soiled * stool softener * Pain management with home Morphine and [place] (3) Anxiety: Code(s): F41.9 - Anxiety disorder, unspecified Status: Acute Assessment and Plan: * Continue Cymbalta (4) Hypertension: Code(s): I10 - Essential (primary) hypertension Status: Acute Assessment and Plan: * Holding lisinopril BP soft will resume when BP tolerates * monitor BP per unit protocol (5) Chronic back pain: Code(s): M54.9 - Dorsalgia, unspecified; G89.29 - Other chronic pain Status: Acute Assessment and Plan: * Resumed home morphine and gabapentin (6) Iron deficiency anemia: Code(s): D50.9 - Iron deficiency anemia, unspecified Status: Acute Plan disposition: discharge to home PT/OT outpatient DS: Summary Hospital Course Reason for hospitalization: rehab post left hemiarthroplasty Hospital Course: Patient is a 69-year-old male with frequent falls, hepatitis, hypertension, osteoporosis and chronic back pain status post surgery. who was transferred o lex to [facility] swing bed for continued rehabilitation postop ORIF of left femoral neck. patient at time of assessment denied any chest pain, shortness a breath, nausea, vomiting, chills, fevers. Patient reported pain controlled worse with ambulation. patient overall progressed well with physical and occupational therapy was ambulating on own at time of discharge. Patient with soft BP so I discussed continued his lisinopril and BP remained stable. Patient seen assessed a discharge in no acute distress requesting to return home will plan to follow-up outpatient for PT OT if still needed and already has scheduled appointment with his orthopedic surgeon for staple removal. Patient was discharged home with patient acknowledged and agreed with discharge plan. Status at Discharge Functional status at discharge: independent ambulation Overall status at discharge: patient is progressing back to baseline Time Spent with Patient Time attestation: Total time spent providing and/or coordinating discharge services: Time spent: Greater than 30 minutes Exam Narrative: General: well appearing, appears stated age. HEENT: normocephalic, atraumatic. Mucous membranes moist. EOMI, PERRLA, Neck supple without JVD Respiratory: clear to auscultation bilaterally. Cardiovascular: Regular rate and rhythm, normal S1-S2 upon auscultation. No murmurs, rubs, or clicks. Abdomen: Soft, round,nondistended and nontender. No rebound, no guarding. Bowel sounds present to all four quadrants. Extremities: No cyanosis, clubbing, or edema present. Pulses are palpable 2/2. Left lower extremity range of motion reduced due to acute pain Neuro: Alert and orientated x 4. PERRLA. Cranial nerves 2-12 intact without focal deficit. Skin: Warm, dry, and intact, without rash, erythema, or lesion. Left lateral thigh incision with terry scant drainage no swelling or erythema Psych: pleasant, cooperative, normal speech, normal affect, no hallucinations, no dysarthia Discharge Plan Discharge Attending physician on discharge: Raymon Mahan Consulting providers: Alem Steele Discharging Clinician: Alem Steele Anticipated Discharge Date/Time: 12/28/24 09:54 Patient Disposition: Home Activity: may shower, as tolerated and follow weight bearing status Diet: as tolerated Discharge Instructions: Fracture of femoral neck, left: Efraín-arthroplasty * Appointment with Dr. Bolaños on Saturday, January 04 at 2pm at their office in [place] for 2 week follow up and staple removal * Aspirin 325 for DVT * Dressing changes daily or when soiled * stool softener * Pain management and prescription of [place] was sent to your pharmacy please take as indicated and taper down to only taking acetaminophen How can you care for yourself at home? ? Keep track of any new symptoms or changes in your symptoms. ? Rest until you feel better. ? Be safe with medicines. Take your medicines exactly as prescribed. Call your doctor if you think you are having a problem with your medicine. ? Do not drive after taking a prescription pain medicine. ? Ensure to follow-up with primary care physician as indicated and provide updated medication list provided to you at discharge. When should you call for help? Call 911 anytime you think you may need emergency care. For example, call if: ? You passed out (lost consciousness). Call your doctor now or seek immediate medical care if: ? You have new symptoms like fever, difficulty breathing, Chest pain, vomiting, or rash. ? You have new or different pain. ? You are confused and are having trouble thinking clearly. ? Your symptoms are getting worse. Watch closely for changes in your health, and be sure to contact your doctor if: ? You do not get better as expected. Patient Instructions: Antibiotic Form, ORIF of Hip Fracture (DC) Patient Language: Ethiopian Stand Alone Forms: General Discharge Information Follow-up/Referrals: Karl Carlos MD [Physician] - 01/04/25 2:00 pm (2 week follow up appt and staple removal) Discharge Medications: New hydrocodone-acetaminophen 5-325 mg Tablet 1 tablet PO Q6H PRN (Reason: Pain Rated 4-6) Qty: 20 0RF Continued aspirin 325 mg Tablet 325 mg PO DAILY@0800 Qty: 90 0RF pantoprazole 40 mg tablet,delayed release (DR/EC) 40 mg PO QAM Qty: 30 3RF duloxetine 60 mg capsule,delayed release(DR/EC) 60 mg PO DAILY Qty: 90 3RF morphine 30 mg tablet 30 mg PO Q8H PRN (Reason: Pain) gabapentin 300 mg capsule 300 mg PO BID sennosides-docusate sodium [Senokot-S] 8.6-50 mg Tablet 2 tab PO Q12HR Qty: 12 0RF cyanocobalamin (vitamin B-12) [Vitamin B-12] 1,000 mcg Tablet 1,000 mcg PO QAM Qty: 90 0RF cyclobenzaprine 10 mg tablet 10 mg PO BID PRN (Reason: Back Pain) Qty: 20 0RF naloxone [Narcan] 4 mg/actuation spray,non-aerosol 1 spray intranasal Q2-3M PRN (Reason: opioid overdose) Qty: 2 0RF Rx Instructions: spray 1 dose into ONE nostril; alternate nostrils w each dose until help arrives ferrous sulfate 325 mg (65 mg iron) Tablet,Delayed Release (Dr/Ec) 325 mg PO BID Qty: 60 0RF acetaminophen-codeine 300-60 mg tablet 1 tablet PO TID PRN (Reason: Pain) trazodone 100 mg tablet See Rx Instructions .ROUTE .COMPLEX Qty: 90 0RF Dose Instruction: 100 MG ORALLY EVERY DAY AT BEDTIME NEEDED FOR INSOMNIA Rx Instructions: 100 MG ORALLY EVERY DAY AT BEDTIME NEEDED FOR INSOMNIA Discontinued lisinopril 20 mg tablet See Rx Instructions .ROUTE .COMPLEX Qty: 90 2RF Dose Instruction: TAKE 1 TABLET BY MOUTH EVERY DAY Rx Instructions: TAKE 1 TABLET BY MOUTH EVERY DAY Date of admission: 12/23/24 13:21 Primary Care Provider: Mark Carmichael Admitting Provider: Raymon Mahan Attending physician on admission: Raymon Mahan Condition: Improved Quality VTE Prophylaxis VTE prophylaxis: mechanical ordered -Patient's previous records reviewed on admission -ER notes reviewed in detail on admission -discussed all findings and current treatment plan with patient/Family/POA -Consultations reviewed for recommendations -Patient's disposition for safe discharge discussed with manager case management Dictation performed by [employer] direct speech recognition software, therefore assembler finger buffs variants and typographical errors may occur. Hospitalist MIPS Heart Failure (Exclusion) Patient has history of Heart Transplant or Left Ventricular Assistive Device?: No IF YES, STOP HERE Heart Failure (Qualifier) Patient has current or prior documentation of LVEF less than or equal to 40%, or mod/servere depressed LVSF?: No IF NO, STOP HERE
--- NOTE | 2024-12-28 11:31 | PC.NURSE ---
Pt discharged to home and family care. Pt is A/Ox3, VSS, ambulating with walker and steady gait. Discharge instructions given to pt . FU appointment with the surgeon is 01/04/25 . Pt taken to family car via and assisted into the vehicle.
--- NOTE | 2024-12-28 14:59 | PC.NURSE ---
Patient called informing his pharmacy did not have the meds that were transmitted. Records indicated transmitted to [place] [facility], patient requested it be sent to [facility] in [place]. Spoke with [employer] who informs he can request [facility] to sent RX to [place]. Called patient back and he indicated that he would just go to [facility] in [place] to pick it up.
--- NOTE | 2024-12-29 09:15 | PC.NURSE ---
Called and spoke with patient r/t Discharge call back. He questions PT orders, informed when he follows up with his doctor/surgeon they will order the PT for him. He voices understanding. No other questions or concerns.
== END 2024-12-28 11:10 | disposition home or self-care (01) | DRG 561 ==
PROVIDERS: Admitting Provider Internal Medicine; PCP Family Medicine; Visit Provider Internal Medicine
DX: S72.002D Fracture of unspecified part of neck of left femur, subsequent encounter for closed fracture with routine healing (principal); I10 Essential (primary) hypertension; D50.9 Iron deficiency anemia, unspecified; M81.0 Age-related osteoporosis without current pathological fracture; M47.816 Spondylosis without myelopathy or radiculopathy, lumbar region; G25.81 Restless legs syndrome; G89.29 Other chronic pain; F41.9 Anxiety disorder, unspecified; F32.A Depression, unspecified; F17.210 Nicotine dependence, cigarettes, uncomplicated; W19.XXXD Unspecified fall, subsequent encounter; Z79.82 Long term (current) use of aspirin
CPT/HCPCS: 97110; 97112; 97161; 97165; 97530; 97535; A9270

== ENCOUNTER 2025-01-06 10:56 | Outpatient (CLI) | payer MEDICARE, SELFPAY ==
[2025-01-06 11:10] LABS: Basophils Absolute Auto 0.03 K/mm3 (0.00-0.10); Basophils Percent Auto 0.5 % (0.0-1.0); Eosinophils Absolute Auto 0.14 K/mm3 (0.02-0.50); Eosinophils Percent Auto 2.4 % (1.0-6.0); Hematocrit 38.8 % (37.0-46.0); Hemoglobin 12.4 g/dL (12.4-15.3); Immature Granulocyte Absolute 0.02 K/mm3 (0.00-0.00); Immature Granulocyte Percent A 0.3 % (0.0-0.0); Lymphocytes Absolute Auto 1.59 K/mm3 (1.10-4.50); Lymphocytes Percent Auto 26.7 % (18.0-42.0); Mean Corpuscular Hemoglobin 33.2 pg (27.0-31.0); Mean Platelet Volume 9.3 fl (8.7-11.0); Monocytes Percent Auto 10.1 % (2.0-11.0); Neutrophils Absolute Auto 3.57 K/mm3 (1.70-7.20); Platelet Count Result 349 K/mm3 (150-420); Red Blood Count 3.73 M/mm3 (4.70-6.10); Red Cell Distribution Width 13.3 % (11.6-14.4)
[2025-01-06 11:26] LABS: Prothrombin Time 10.6 Seconds (9.50-12.1)
--- OUTSIDE RECORDS SUMMARY | 2025-01-06 11:49 | XMS_ITS | Clinical Summary ---
Author Organization [facility] Address [address] [place] [address] Care Team Providers Care Oil Field Operator Name Role Phone Mark Carmichael DO Primary Care Provider [phone] Allergies Active Allergy Reactions Criticality Noted Date [...] Problem Noted Date Diagnosed Date Respiratory failure ([facility]) 07/25/2022 Immunizations Immunization Administration Dates Next [...] Comments Blood Pressure 162/92 08/27/2022 12:55 PM TRAFFIC MANAGER Pulse 64 08/27/2022 12:55 PM TRAFFIC MANAGER Temperature 36.2 C (97.2 F) 08/27/2022 12:55 PM TRAFFIC MANAGER Respiratory Rate 22 08/27/2022 12:5 5 PM TRAFFIC MANAGER Oxygen Saturation 97% 08/27/2022 12: 55 PM TRAFFIC MANAGER Inhaled Oxygen Concentration - - Weight 67.5 kg (148 lb 12.8 oz) 07/28/2022 3:26 AM TRAFFIC MANAGER Height 165.1 cm (5' 5 ) 07/25/2022 1:30 PM TRAFFIC MANAGER Body Mass Index 24.76 07/25/2022 1:30 PM TRAFFIC MANAGER Plan of Treatment Health Maintenance Due Date [...] and discharge planning Lifestyle No Angela Dawkins, TEACHING PASTORc software engineer [employer] Advance Directives * Full Code (Latest Code Status on File) Date Activated Date Inactivated Comments 08/09/2022 8:44 PM * Full Code Date Activated Date Inactivated Comments 07/25/2022 1:55 PM 08/08/2022 1:57 PM Care Teams Oil Field Operator Relationship Specialty Start Date End Date Mark Carmichael DO [address] [place] [address] PCP - General FAMILY PRACTICE 07/22/22
--- OUTSIDE RECORDS SUMMARY | 2025-01-06 11:49 | XMS_ITS | Encounter Summary ---
Author Organization [facility] Address [facility] [place] [address] Care Team Providers Care Cinnamon Grinder Name Role Phone Channing Panchal MD Primary Care Provider [phone] Mark Carmichael DO Primary Care Provider [phone] Encounter Details Date Type Department Care Team (Late st Contact Info) Description 02/07/2019 Abstract SFL CONVERSION [address] [address] , Generic Conversion, Social History Tobacco Use [...] Rule Out 07/25/2022 07/25/2022 08/01/2022 12:32 AM VETERINARIAN documented as of this encounter Care Teams Cinnamon Grinder Relationship Specialty Start Date End Date Channing Panchal MD [address] [place] [address] PCP - General INTERNAL MEDICINE 08/17/21 07/21/22 Mark Carmichael DO [address] [place] [address] PCP - General FAMILY PRACTICE 07/22/22 documented as of this encounter
[2025-01-06 12:58] LABS: Folic Acid 14.8 ng/mL (8.6->20); Iron 45 ug/dL (65-175); Percent Iron Saturation 15 % (12-57); Vitamin B12 438 pg/mL (193-986)
[2025-01-06 13:08] LABS: Thyroid Stimulating Hormone Reflex 0.73 u/IU/mL (0.36-3.74)
[2025-01-06 14:49] LABS: Alanine Aminotransferase 12 U/L (6-50); Albumin Level 3.9 g/dL (3.5-5.1); Alkaline Phosphatase 71 U/L (38-126); Anion Gap 7 mmol/L (4-12); Aspartate Amino Transferase 24 U/L (17-59); Bilirubin,Total 0.5 mg/dL (0.2-1.3); Blood Urea Nitrogen 12 mg/dL (9-20); Calcium 9.3 mg/dL (8.4-10.2); Carbon Dioxide 23 mmol/L (22-30); Chloride 108 mmol/L (98-107); Estimated Glomerular Filt Rate > 60; Glucose 97 mg/dL (65-110); Osmolality Calculated 285 mOsm/kg (285-295); Potassium 4.4 mmol/L (3.4-5.0); Sodium 138 mmol/L (137-145); Total Protein 6.7 g/dL (6.3-8.2)
[2025-01-08 05:28] LABS: Hepatitis A Antibody IgM NON-REACTIVE (NON-REACTIVE); Hepatitis B Core Antibody NON-REACTIVE (NON-REACTIVE); Hepatitis B Surface Antigen REACTIVE (NON-REACTIVE); Hepatitis C Virus Antibody REACTIVE (NON-REACTIVE)
[2025-01-08 14:28] LABS: Hepatitis C Viral RNA PCR <15 NOT DETECTED IU/mL (NOT DETECTED)
== END 2025-01-06 10:57 | disposition home or self-care (01) ==
LOC: CHSLAB 10:57
PROVIDERS: PCP Family Medicine; Visit Provider Family Medicine
DX: D51.9 Vitamin B12 deficiency anemia, unspecified (principal); D50.9 Iron deficiency anemia, unspecified; R10.9 Unspecified abdominal pain; D69.9 Hemorrhagic condition, unspecified; R74.01 Elevation of levels of liver transaminase levels; E03.9 Hypothyroidism, unspecified; D64.9 Anemia, unspecified
CPT/HCPCS: 36415; 80053; 80074; 82607; 82728; 82746; 83540; 83550; 84443; 85025; 85610

== ENCOUNTER 2025-01-18 13:39 | Outpatient (RCR) | payer MEDICARE, SELFPAY ==
--- NOTE | 2025-01-18 14:50 | OPREHPOC ---
Outpatient Therapy Plan of Care This is a Multidisciplinary Plan of Care that may contain components documented by all disciplines (PT, OT, and ST.) PT Problem 1 PT Problem #1 Knowledge Deficit PT Goal 1 Goal / Goal Update Independent and compliant with HEP. Target Visit 4 PT Problem 2 PT Problem #2 Pain PT Goal 1 Goal / Goal Update Pt to report no more than 3/10 pain at rest. Pt to report no more than 5/10 pain with activity. Target Visit 12 PT Problem 3 PT Problem #3 Impaired Strength PT Goal 1 Goal / Goal Update Pt to improve L hip flexion strength 4/5. Pt to improve all other LE muscle groups to 5/5. Target Visit 12 PT Problem 4 PT Problem #4 Impaired Functional Mobility PT Goal 1 Goal / Goal Update Pt to improve Tinetti to low risk of falls. Pt to ambulate 1000ft during 6MWT using LRAD and without rest. Target Visit 12
--- NOTE | 2025-01-18 14:50 | PTOPEVAL1 ---
Assessment and note entered by Nati May, PT Evaluation Information Assessment Status Evaluation ICD-10 Condition Codes (PT) Difficulty Walking R26.2,Weakness R53.1 Other ICD-10 Condition Codes ( D69.9 PT) Subjective Information Pt reports he fell on December 19 and broke his hip . He underwent surgery for this and was admitted to [facility] for rehab. He saw his doctor last week and got his terry out and was told his incision is healing well. He states they told him to avoid twisting his hip. He reports he does wake up at night due to pain and has to go from the bed to the recliner. He reports difficulty walking and feeling imbalanced. He is currently using a cane when walking outside the home. Reported Pain Level Pain Score 6: Self Report Assessment PT Clinical Summary Mr. Ashley is a 69 yo male who enters the clinic for unspecified hemorrhagic condition with recent hip fracture stabilized with ORIF and hospital stay following. He demonstrates generalized LE weakness especially of the L hip as well as difficulty walking and balance as evidenced by fall risk per Tinetti. He will benefit from skilled PT intervention to improve deficits to be able to perform daily functional tasks with less difficulty. Plan of Care Interventions Gait Training,Hot Pack/Cold Pack,Manual Therapy, Neuro Re-education,Patient/Caregiver Education, Therapeutic Activities,Therapeutic Exercise,Self- Care/Home Management PT Services Indicated Yes Treatment Frequency and 2x/week for 12 visits Duration These treatments will address the objective and functional deficits as defined above. The patient will be advanced safely and appropriately in order for the patient to progress towards his/her prior level of function. Additional exercises will be introduced and as well as a comprehensive home exercise program upon discharge, if needed, ?to ensure carryover of functional gains achieved in the clinic. This treatment plan has been reviewed and agreement upon by the patient.
--- NOTE | 2025-01-21 13:20 | PCPTNOTE ---
Cancelled session today. Pt reports he cannot afford a $20 copay every visit.
--- NOTE | 2025-01-28 14:26 | PCPTNOTE ---
No call, no show.
--- NOTE | 2025-03-25 13:16 | PTOPDC ---
Assessment and note entered by Nati May, PT Evaluation Information Assessment Status Discharge - Pt Not Present ICD-10 Condition Codes (PT) Difficulty Walking R26.2,Weakness R53.1 Other ICD-10 Condition Codes ( D69.9 PT) Subjective Information See below Assessment PT Clinical Summary Mr. Ashley was seen in the clinic on 01/18/25 for skilled PT evaluation for unknown hemorrhagic condition and also recent hip fracture with ORIF. Following evaluation Mr. Ashley was scheduled for subsequent treatment sessions but canceled and then no-showed the next two visits. Due to lack of attendance to therapy he will be discharged this date. Plan of Care PT Services Indicated No
== END 2025-01-18 20:00 | disposition home or self-care (01) ==
LOC: CHSPT 13:39
PROVIDERS: PCP Family Medicine; Visit Provider Family Medicine
DX: D69.9 Hemorrhagic condition, unspecified (principal)
CPT/HCPCS: 97110; 97161

== ENCOUNTER 2025-01-18 14:39 | Outpatient (CLI) | payer MEDICARE, SELFPAY ==
--- NOTE | ~2025-01-18 | XR_ITS ---
[id number] Ordering provider: Austin Pisano, History: . C/T/L Spine radiculopathy F/U, Physical T currently . Comparison: November 22, 2023 FINDINGS: VERTEBRAL BODIES: Normal height and alignment. No visible fracture or subluxation. The dens is intact . DISK SPACES: Severe narrowing of the disc C5-C6 and C6-C7. Multilevel facet joint disease. Multilevel uncovertebral degenerative disc arthritic changes. PARASPINOUS SOFT TISSUES: No prevertebral soft tissue swelling. Bilateral carotid calcifications. IMPRESSION: No acute osseous abnormality cervical spine. Multilevel degenerative disc disease.. Reviewed, dictated and finalized at location A.
--- NOTE | ~2025-01-18 | XR_ITS ---
3 VIEWS THORACIC SPINE Ordering provider: Austin Pisano, History: . C/T/L Spine radiculopathy F/U, Physical T currently . Comparison: November 22, 2023 FINDINGS: VERTEBRAL BODIES: S-shaped scoliosis is seen in the cervical thoracic area. Postoperative changes in the upper lumbar area. Otherwise,,Normal height and alignment. No visible fracture or subluxation. DISK SPACES: Narrowing of multiple disc spaces in the mid thoracic area. SOFT TISSUES: Normal. IMPRESSION: No acute osseous abnormality of the thoracic spine. Multilevel degenerative disc disease. Reviewed, dictated and finalized at location A.
--- NOTE | ~2025-01-18 | XR_ITS ---
EXAM: XR lumbar spine 2-3V DATE: 01/18/2025 15:17 HISTORY: C/T/L Spine radiculopathy F/U, Physical T currently . COMPARISON: 12/19/2024; CT cap 08/16/2024. FINDINGS: Partially visualized bipolar left hip arthroplasty. Uncomplicated posterior fusion hardwar e at L3-4. Lumbar kyphosis centered at L3. Stable wedge deformity at L3. Diffuse demineralization. At herosclerotic aortic calcification without evident aneurysm. Multilevel disc space narrowing. Multile casandra facet hypertrophy and sclerosis. IMPRESSION: Uncomplicated posterior L3-4 fusion and partially visualized left hip hardware. Osteopeni a. Stable wedge deformity at L3. Reviewed, dictated and finalized at location K. IMPRESSION: Uncomplicated posterior L3-4 fusion and partially visualized left h ip hardware. Osteopenia. Stable wedge deformity at L3.
--- OUTSIDE RECORDS SUMMARY | 2025-01-18 14:43 | XMS_ITS | Clinical Summary ---
Author Organization 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 Pulse 64 08/27/2022 12:55 PM AFTERSCHOOL BABYSITTER Temperature 36.2 C (97.2 F) 08/27/2022 12:55 PM AFTERSCHOOL BABYSITTER Respiratory Rate 22 08/27/2022 12:5 5 PM AFTERSCHOOL BABYSITTER Oxygen Saturation 97% 08/27/2022 12: 55 PM AFTERSCHOOL BABYSITTER Inhaled Oxygen Concentration - - Weight 67.5 kg (148 lb 12.8 oz) 07/28/2022 3:26 AM AFTERSCHOOL BABYSITTER Height 165.1 cm (5' 5 ) 07/25/2022 1:30 PM AFTERSCHOOL BABYSITTER Body Mass Index 24.76 07/25/2022 1:30 PM AFTERSCHOOL BABYSITTER Plan of Treatment Health Maintenance Due Date [...] topic Meningococcal Vaccine Aged Out No yogi hasna eligible based on patient's age to complete this topic RSV Immunizations Under 20 Months Aged Out No longer eligible b ased on patient's age to complete this topic Goals Goal Patient Goal Type Associated Problems Recent Progress Patient-Stated? 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 [employer] Member Subscriber Plan / Payer (Ef fective 2022-Present) Name:Ray Ashley Relation to Subscriber:Self Name:Ray Ashley Payer ID:[id number] (NAIC) Type:Not on file Address: [facility] [id number] [place] [id number] Advance Directives * Full Code (Latest Code Status on File) Date Activated Date Inactivated Comments 08/09/2022 8:44 PM * Full Code Date Activated Date Inactivated Comments 07/25/2022 1:55 PM 08/08/2022 1:57 PM Care Teams Temperature Regulator Relationship Specialty Start Date End Date Mark Carmichael DO [address] [place] [address] PCP - General FAMILY PRACTICE 07/22/22
--- OUTSIDE RECORDS SUMMARY | 2025-01-18 14:43 | XMS_ITS | Encounter Summary ---
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
== END 2025-01-18 14:40 | disposition home or self-care (01) ==
LOC: CHSIMG 14:41
PROVIDERS: PCP Family Medicine; Visit Provider Pain Medicine Interventional Pain Medicine
DX: M54.12 Radiculopathy, cervical region (principal); M54.14 Radiculopathy, thoracic region; M54.17 Radiculopathy, lumbosacral region; M51.34 Other intervertebral disc degeneration, thoracic region; M50.30 Other cervical disc degeneration, unspecified cervical region; Z98.1 Arthrodesis status; M85.88 Other specified disorders of bone density and structure, other site; M48.56XA Collapsed vertebra, not elsewhere classified, lumbar region, initial encounter for fracture
CPT/HCPCS: 72040; 72072; 72100